=== PATIENT | female | born 1975 | race Caucasian/White ===

== ENCOUNTER 2017-08-12 01:59 | Inpatient (IN) | payer MEDICARE, MEDICAID, SELFPAY ==
[2017-08-12] VITALS (12 sets, daily range): BP systolic 125–188; BP diastolic 58–85; PULSE 73–86; RESP 16–20; TEMP 36.5–37.5; O2SAT 88–98; BMI 33.3; BMI 32.7
--- NOTE | 2017-08-12 02:22 | CT_ITS ---
STUDY: CT ABDOMEN AND PELVIS WITHOUT CONTRAST REASON FOR EXAM: Female, 41 years old. Back pain starting in the periumbilical region. Patient has end-stage renal disease and is on dialysis. RADIATION DOSAGE (If Supplied By Facility): CTDIvol = ( 13.23 ) mGy, DLP = ( 955.46 ) mGycm TECHNIQUE: Transaxial images were obtained from the dome of the diaphragm to the symphysis pubis without oral contrast, and without intravenous contrast. Sagittal and coronal images were reconstructed. Individualized dose optimization techniques were used for this CT. COMPARISON: CT the abdomen and pelvis dated August 06, 2016. FINDINGS: The visualized lung bases are unremarkable. The visualized portions of the heart are within normal limits. There is hepatomegaly with diffuse hepatic enlargement. Liver measures 19.8 cm in greatest cephalocaudal dimension. Normal gallbladder and extrahepatic biliary system. There is mild splenomegaly. There are scattered calcified granulomas. Normal pancreas. There is a left adrenal nodule measuring approximately 3.3 2.3 x 2.0 cm. The right adrenal gland has a normal appearance. There is mild cortical atrophy of the right kidney, consistent with chronic medical renal disease. Left kidney has normal size. There are vascular calcifications in both renal latrell. There is no evidence for hydronephrosis, hydroureter or radiopaque ureteral calculus. Normal visualized stomach. There is mild dilatation of the small bowel with maximum transverse dimension of approximately 3.7 cm. There may be some thickening of the walton of the small bowel as well. There appears to be a transition within the mid small bowel. The colon is not dilated. Stool is visible throughout the colon with scattered colonic diverticula There are surgical clips in the region of the appendix consistent with a prior appendectomy. There is patchy atherosclerotic calcification of the abdominal aorta, without a demonstrated aneurysm. There extensive vascular calcifications of the branches of the superior mesenteric artery and celiac axis. Normal inferior vena cava. Normal retroperitoneum. Normal urinary bladder. There is absence of the uterus consistent with a prior hysterectomy. There is an umbilical hernia containing fat. There are diffuse degenerative changes of the visualized lumbar spine. There is mild curvature of the thoracic and lumbar spine with convexity towards the right. CT/Abdomen/Pelvis without Cont IMPRESSION: 1. CT findings suggest possible acute inflammation of the proximal small bowel and early or partial small bowel obstruction. Ileus is thought less likely. 2. Hepatomegaly and splenomegaly. Electronically Signed: Val Cabrera MD at 4:16 EST , Service support ,
[2017-08-12 02:58] LABS: Absolute Lymphocyte Count 0.87 X10^3/ul (0.83-4.51); Absolute Neutrophil Count 5.4 X10^3/uL (2.0-7.7); Basophil# 0.01 X10^3/uL; Basophil% 0.1 % (0-1); Hematocrit 26.7 % (37-47); Hemoglobin 8.6 g/dl (12.0-15.0); Lymphocyte # 0.87 X10^3/ul (4.0); Lymphocyte % 12.9 % (19-41); Mean Corp Hgb Conc 32.2 g/gl (32-36); Mean Corpuscular Hgb 31.9 pg (27.0-32.0); Mean Corpuscular Volume 98.9 fL (81-99); Mean Platelet Vol. 8.3 fl (6.2-12.0); Monocyte# 0.31 X10^3/uL; Monocyte% 4.6 % (0-10); Neutrophil # 5.36 X10^3/uL (2.7-7.7); Neutrophil % 79.1 % (47-70); Platelet Count 153 K/mm3 (150-450); RBC Distribution Width CV 15.1 % (11.6-14.6); White Blood Count 6.8 K/mm3 (4.4-11.0)
[2017-08-12 03:09] LABS: POSITIVE COUNT NO; POSITIVE DIFFERENTIAL NO; POSITIVE MORPHOLOGY NO
[2017-08-12 03:15] LABS: BUN 24 mg/dL (7-18); Creatinine, Serum 4.36 mg/dL (0.55-1.02); EST Glomerular Filtration Rate 12 mL/min (>60); Estimated Creatinine Clearance 15.57 ml/min; Glucose 178 mg/dL (70-110)
[2017-08-12 03:16] LABS: ALB/GLOB Ratio 0.6 RATIO (0.9-2.4); AST(SGOT) 12 U/L (15-37); Alanine Aminotransfer ALT/SGPT 22 U/L (12-78); Albumin, Serum 2.7 g/dL (3.4-5.0); Alkaline Phosphatase 93 U/L (45-117); Anion Gap 10 (5-15); BUN/Creat Ratio 5.5 RATIO (10-20); Calcium,Total 7.7 mg/dL (8.5-10.1); Chloride 97 mmol/L (98-107); Est Glom Filt Rate - Afr Amer 14 mL/min (>60); Globulin 4.6 g/dL (2.2-4.2); Lipase 229 U/L (73-393); Potassium 3.3 mmol/L (3.5-5.1); Protein, Total 7.3 g/dL (6.4-8.2); Sodium Level 140 mmol/L (136-145)
[2017-08-12] MEDS: Ondansetron 4 MG/2 ML Vial IV ×3 (03:50→20:38)
--- NOTE | 2017-08-12 03:55 | ED.RN ---
STILL NEEDS VERIFIED NO LW OR POA
--- NOTE | 2017-08-12 04:43 | HP.PCM_ITS ---
Problem List (1) GABRIEL (obstructive sleep apnea) Status: Chronic (2) ESRD on dialysis Status: Chronic (3) Depression Status: Chronic Qualifiers: Depression Type: unspecified Qualified Code(s): F32.9 - Major depressive disorder, single episode, unspecified (4) Anxiety Status: Chronic (5) HTN (hypertension) Status: Chronic Qualifiers: Hypertension type: essential hypertension Qualified Code(s): I10 - Essential (primary) hypertension (6) Nonischemic cardiomyopathy Status: Chronic Comment: With ejection fraction 45 - 50%; with angiographically normal coronary arteries 05/2013; follows up with Dr. Magdaleno (7) S/P repair of PDA (patent ductus arteriosus) Status: Chronic Comment: At young age (8) Diabetes mellitus type 1 Status: Chronic Qualifiers: Diabetes mellitus complication status: with unspecified complications Qualified Code(s): E10.8 - Type 1 diabetes mellitus with unspecified complications (9) Hyperlipidemia Status: Chronic Qualifiers: (10) Obesity Status: Chronic Qualifiers: Obesity type: due to excess calories Obesity classification: adult class 1 (BMI 30 - 34.9) (11) Systolic congestive heart failure Status: Chronic Qualifiers: Congestive heart failure chronicity: chronic Qualified Code(s): I50.22 - Chronic systolic (congestive) heart failure Comment: EF 40% (12) Left ventricular diastolic dysfunction, NYHA class 2 Status: Chronic (13) Tobacco abuse Status: Chronic (14) Iron deficiency anemia due to chronic blood loss Status: Chronic Comment: Dysmenorrhea history, s/p hysterectomy. (15) Obesity (BMI 30.0-34.9) Status: Chronic (16) Gastroparesis Status: Chronic (17) ? Early small bowel obstruction Status: Acute (18) Possible Infectious Colitis Status: Acute History of Present Illness Date of Admission: 08/12/17 Chief Complaint: Abdominal pain The patient is a 41 y/o F w/ PMHx: ESRD on HD, Diabetes mellitus type II w/ Neuropathy and Gastroparesis, HTN, HLD, Tobacco use, Obesity, LV Diastolic Dysfx , Systolic CHF Hx, CAD s/p 2013 catheterization w/ mild LAD disease w/ medical therapy only who presents to the [facility] ED on 08/12/17 w/ sudden onset at ~ 1:30 am severe mid-abdominal pain radiating toward her back with associated nausea without emesis and diarrheal episode x 1 with subjective elevated temperature and chills. In the ED work-up included T 99.5, HR 83, BP 188/76, RR 20, 98% on RA, CBC w/ WBC 6.8, Hgb 8.6, Plts 153 without L shift, CMP w/ K 3.3, Chl 97, CO2 33, BUN/Cr 24/4.36, glucose 178, lipase 229, CT A/P with possible acute inflammation of the proximal bowel and early or partial SBO, hepatomegaly and splenomegaly. In the ED patient administered NS, zofran and morphine. Past Medical History Past Medical History (Chronic Problems): Chronic Problems GABRIEL (obstructive sleep apnea) (Chronic) ESRD on dialysis (Chronic) Depression (Chronic) Anxiety (Chronic) HTN (hypertension) (Chronic) Nonischemic cardiomyopathy (Chronic) With ejection fraction 45 - 50%; with angiographically normal coronary arteries 05/2013; follows up with Dr. Magdaleno S/P repair of PDA (patent ductus arteriosus) (Chronic) At young age Diabetes mellitus type 1 (Chronic) Hyperlipidemia (Chronic) Obesity (Chronic) Systolic congestive heart failure (Chronic) EF 40% Left ventricular diastolic dysfunction, NYHA class 2 (Chronic) Tobacco abuse (Chronic) Iron deficiency anemia due to chronic blood loss (Chronic) Dysmenorrhea history, s/p hysterectomy. Obesity (BMI 30.0-34.9) (Chronic) Gastroparesis (Chronic) Allergies latex Allergy (Verified 08/12/17 02:03) Rash levofloxacin [From Levaquin] Adverse Reaction (Verified 08/12/17 02:03) PT CAN'T REMEMBER PT CAN'T REMEMBER metoclopramide HCl [From Reglan] Adverse Reaction (Verified 08/12/17 02:03) Nausea NSAIDS (Non-Steroidal Anti-Inflamma Adverse Reaction (Verified 08/12/17 02:03) kidney function oxycodone HCl [From Percocet] Adverse Reaction (Verified 08/12/17 02:03) HALLUCINATIONS Home Medications: Ambulatory Orders Medication Instructions Recorded Diltiazem HCl [Tiazac] 240 mg PO DAILY 07/10/15 Aspirin [Aspirin, Baby] 81 mg PO DAILY@0800 01/26/16 Calcium Acetate [Phoslo Gel Cap] 667 mg PO TIDCM 01/26/16 Ergocalciferol [Vitamin D] 50,000 unit PO FR 01/26/16 Insulin Aspart [Novolog Flexpen] 8 units SC TIDCM 01/26/16 Insulin Glargine,Hum.rec.anlog 5 unit SQ QHS 01/09/17 [Lantus] ProMETHAzine [Phenergan] 25 mg PO Q6H PRN PRN #10 tablet 03/06/17 Lidocaine/Prilocaine 1 unit TOPICAL PRN PRN 03/29/17 [Lidocaine-Prilocaine Cream] Lisinopril 20 mg PO DAILY 03/29/17 Omeprazole Magnesium [Prilosec Otc] 20 mg PO DAILY 03/29/17 Sodium Bicarbonate 650 mg PO MOWEFR 03/29/17 Acetaminophen [Tylenol Tablet] 650 mg PO Q6H PRN PRN tablet 03/31/17 Carvedilol [Coreg (Beta Chang)] 25 mg PO BID 06/17/17 Ondansetron [Zofran Odt] 4 mg PO Q8H PRN PRN #10 tablet 08/06/17 ALPRAZolam [Xanax] 0.5 mg PO PRN PRN 08/12/17 Surgical History: appendectomy, - - c-sections, L breast I+D for abscess, fistula placement LUE, L ankle surgery, appendectomy, DOMINGA w/ BSOO, PDA repair. Psychiatric History: Anxiety, Depression [employer] History: - - Prior dysmenorrhea, s/p hysterectomy. Lives: Spouse/ Significant Other Smoking Status: Current every day smoker Tobacco Use: Cigarettes Alcohol: None Drugs: None - *Family History Maternal History Items: Cancer, COPD, Diabetes, Hypertension, Renal Disease, Stroke Paternal History Items: Diabetes Sibling History Items: Cancer, Diabetes Review of Systems Constitutional: Reports: Chills, Fever, Weakness, Fatigue. Denies: Weight Change HEENT: Denies: Head Aches, Sinus Congestion, Sinus Drainage Cardiovascular: Denies: Chest Pain, Palpitations Respiratory: Denies: Cough, Shortness of breath at rest, Sputum production Gastrointestinal: Reports: Abdominal Pain, Diarrhea, Nausea. Denies: Vomiting Genitourinary: Denies: Dysuria Musculoskeletal: Denies: Joint Pain, Joint Tenderness Skin: Denies: Rash, Wounds Neurological: Denies: Numbness, Tingling, Focal weakness Psychiatric: Reports: Anxiety, Depression. Denies: Homicidal Ideations, Suicidal Ideations Hematologic/ Lymphatic: Reports: Anemia. Denies: Easy Bruising, Easy Bleeding VTE Information - Inpt Only VTE Present on Admission: No VTE Mechan Device Prophylaxis: SCD's VTE Pharm Prophylaxis ordered?: Yes Patient Problems: Active and Suspected Problems ? Early small bowel obstruction (Acute) Possible Infectious Colitis (Acute) Abdominal pain (Acute) Inflammation of small intestine (Acute) Subjective: Laying on her side in the ED bed, uncomfortable appearing, grimacing with movement to lay on back. Objective: Physical Examination: General: awake, alert, oriented x 3 and cooperative, laying in the ED bed in no apparent distress. Skin: normal color, turgor, no icterus, cyanosis. HEENT: AT/NC, EOMI, PERRLA, mildly dry MM, no carotid bruits or JVD noted. Lungs: CTA bilaterally, moderate effort, moderate decrease BL bases, no rales, ronchi or wheezing. Heart: Regular rate and rhythm; no gallop, rub audible. Abdomen: soft, obese, mildly distended, hyperactive BS, generalized mild TTP, more periumbilical discomfort, difficult to assess HSM given habitus (noted MH, SM on imaging). Extremities: no cyanosis, clubbing, or edema. Neurological: patient awake, alert, oriented x 3; cognitive function intact; pupils equally reactive to light and accomodation; cranial nerves II-XII grossly normal, moving all 4 extremities, no focal deficits, strength severely globally decreased. Psychiatric: affect appears fatigued, no acute evidence of depressive or anxiety feelings. - Physical Exam Vital Signs Temp Pulse Resp BP Pulse Ox 99.5 F H 83 20 H 188/76 H 98 08/12/17 02:00 08/12/17 02:00 08/12/17 02:00 08/12/17 02:00 08/12/17 02:00 Oxygen Delivery Method Room Air Weight: 206 lb 5.643 oz Body Mass Index (BMI) 33.3 Finger Stick Blood Glucose 351 Laboratory Tests Past 24 Hrs 08/12/17 08/12/17 02:35 02:35 WBC 6.8 RBC 2.70 L Hgb 8.6 L Hct 26.7 L MCV 98.9 MCH 31.9 MCHC 32.2 RDW 15.1 H RDW Differential 53.0 H Plt Count 153 MPV 8.3 Immature Gran % (Auto) 0.300 Neut % (Auto) 79.1 H Lymph % (Auto) 12.9 L Rapides % (Auto) 4.6 Eos % (Auto) 3.0 Baso % (Auto) 0.1 Absolute Neuts (auto) 5.4 Absolute Lymphs (auto) 0.87 Total Counted Not Reportable Sodium 140 Potassium 3.3 L Chloride 97 L Carbon Dioxide 33.0 H Anion Gap 10 BUN 24 H Creatinine 4.36 H Estim Creat Clear Calc 15.57 Est GFR (MDRD) Af Amer 14 L Est GFR (MDRD) Non-Af 12 L BUN/Creatinine Ratio 5.5 L Glucose 178 H Calcium 7.7 L Total Bilirubin 0.30 AST 12 L ALT 22 Alkaline Phosphatase 93 Total Protein 7.3 Albumin 2.7 L Globulin 4.6 H Albumin/Globulin Ratio 0.6 L Lipase 229 Assessment/Plan Active and Suspected Problems ? Early small bowel obstruction (Acute) Possible Infectious Colitis (Acute) Abdominal pain (Acute) Inflammation of small intestine (Acute) The patient is a 41 y/o F w/ PMHx: ESRD on HD, Diabetes mellitus type II w/ Neuropathy and Gastroparesis, HTN, HLD, Tobacco use, Obesity, LV Diastolic Dysfx , Systolic CHF Hx, CAD s/p 2013 catheterization w/ mild LAD disease w/ medical therapy only who presents to the [facility] ED on 08/12/17 w/ sudden onset at ~ 1:30 am severe mid-abdominal pain radiating toward her back with associated nausea without emesis and diarrheal episode x 1 with subjective elevated temperature and chills. (1) Abdominal pain, nausea without emesis, diarrhea x 1 w/ Proximal Bowel Inflammation, Possible Infectious Colitis w/ ? early SBO: In the ED work-up included CT A/P with possible acute inflammation of the proximal bowel and early or partial SBO, hepatomegaly and splenomegaly, CBC w/o marked WBC elevation of shift, AF in the ED. Unclear specific etiology. Will admit to MS, maintain on IVFs, maintain on zosyn, defer NGT pending discussion with Surgery given atypical presentation, strict I&Os, IV pain/anti-emetics PRN, serial KUB as needed to montior bowel function, Famotidine IV, maintain NPO on bowel rest. General surgery, Dr. Zhang consulted, pending. (2) Hypertension: Holding oral regimen, PRN hydralazine, lopressor. (3) AOCD, Fe deficiency anemia: Admission Hgb 8.6, previously was on Fe supplementation. (4) ESRD on HD: Consult Nephrology, Dr. Juan somers, continue with routine HD regimen. (5) Chronic systolic CHF, CM, Diastolic DysFx, CAD: Noted history, EF 45-50% w/ 05/2013 normal cardiac catheterization per Dr. Magdaleno, holding oral regimen asa , BB, ACEI. Not on statin. HD as noted. IVFs cautiously to avoid overload. (6) Hyperlipidemia: Not on statin. (7) Diabetes mellitus type II w/ Neuropathy, Gastroparesis: Continue home long- acting insulin regimen, hold short-acting scheduled regimen, NPO status given acute presentation, accu checks w/ ISS. (8) Depression and Anxiety: Holding home xaxax regimen. Previously was on prozac in the past. PRN IV ativan given NPO status. (9) Tobacco Abuse: Encouraged cessation, inpatient consultation per RT, NR if desired. (10) Obesity: Weight loss and lifestyle changes encouraged. (11) DVT prophylaxis: SCDs, heparin. Code Visit Inpatient E&M: 96270 Init Hosp L3
--- NOTE | 2017-08-12 04:44 | ED.VISSUMM ---
- ER Visit Summary Date of Service: 08/12/17 Chief Complaint: Abdominal pain History of Present Illness: The patient is a 41 F sudden abdominal pain awakening her at 120 in the morning. Pain mid abdomen radiates to her back. No nausea or vomiting. States had one loose stools after the pain. No blood in the stools. No previous similar symptoms. No fevers. States had chills. History of end-stage renal disease on dialysis Fridays, had full dialysis yesterday. History of appendectomy, , umbilical hernia repair. Appendectomy was done 2 years ago in [place]. Pain is sharp in nature 8 out of 10. Physical Examination: General: Alert and oriented ?3, no acute distress HEENT: Normocephalic, atraumatic. Moist mucosa membranes Neck: supple, nontender. Cardiovascular: Regular rate and rhythm, no murmurs Respiratory: Normal breath sounds, symmetric, no distress Abdomen: Soft, mid abdominal tenderness without guarding or rebound., nondistended. Normal bowel sounds Extremities: Nontender, no edema, pulses intact ?4. Left upper extremity fistula with a positive thrill Neuro: no focal neurological deficits. Test Results: Labs white count 6.8, hemoglobin 8.6. Potassium 3.3. Creatinine 4.36. Lipase 229. Liver enzymes normal. CT scan abdomen pelvis inflammation proximal small bowel, possible early partial small bowel obstruction Emergency Department Course and Treatment: Patient presents with discomfort, nonsurgical abdomen. Abdominal labs noted chronic changes of hemoglobin. Creatinine 4.36. Potassium 3.3. She did finish dialysis yesterday. She given morphine fluids for symptom control. CT scan per radiology notes inflammation proximal small bowel and possible early partial small bowel obstruction. Spoke with Dr. Charles, will place on Zosyn IV for the inflammation for coverage. Request I talked to surgery for inpatient management. I spoke with Dr. Dill, who will follow. He did review the images was not impressed with obstruction at this time. He states symptoms persist, can obtain oral contrast scan for evaluation if there would be any signs of small bowel obstruction. Treatment Plan: [] Disposition: Admission Impression: 1. Abdominal pain 2. Small small small bowel inflammation 3. Possible early small bowel obstruction 4. Anemia 5. End-stage renal disease on dialysis This note was generated with [employer] software. It may contain incorrect words, spelling, and punctuation that were not noted in review of the chart prior to signing ED Disposition - Plan for ED Patient: Disposition: Acute Care Hospital [facility] Chief Complaint: Back Diagnosis: Abdominal pain, Inflammation of small intestine Referrals: Christopher Foy MD [Primary Care Provider] -
--- NOTE | 2017-08-12 04:55 | ED.DCSUM_ITS ---
- ER Visit Summary Date of Service: 08/12/17 Chief Complaint: Abdominal pain History of Present Illness: The patient is a 41 F sudden abdominal pain awakening her at 120 in the morning. Pain mid abdomen radiates to her back. No nausea or vomiting. States had one loose stools after the pain. No blood in the stools. No previous similar symptoms. No fevers. States had chills. History of end-stage renal disease on dialysis Fridays, had full dialysis yesterday. History of appendectomy, , umbilical hernia repair. Appendectomy was done 2 years ago in [place]. Pain is sharp in nature 8 out of 10. Physical Examination: General: Alert and oriented ?3, no acute distress HEENT: Normocephalic, atraumatic. Moist mucosa membranes Neck: supple, nontender. Cardiovascular: Regular rate and rhythm, no murmurs Respiratory: Normal breath sounds, symmetric, no distress Abdomen: Soft, mid abdominal tenderness without guarding or rebound., nondistended. Normal bowel sounds Extremities: Nontender, no edema, pulses intact ?4. Left upper extremity fistula with a positive thrill Neuro: no focal neurological deficits. Test Results: Labs white count 6.8, hemoglobin 8.6. Potassium 3.3. Creatinine 4.36. Lipase 229. Liver enzymes normal. CT scan abdomen pelvis inflammation proximal small bowel, possible early partial small bowel obstruction Emergency Department Course and Treatment: Patient presents with discomfort, nonsurgical abdomen. Abdominal labs noted chronic changes of hemoglobin. Creatinine 4.36. Potassium 3.3. She did finish dialysis yesterday. She given morphine fluids for symptom control. CT scan per radiology notes inflammation proximal small bowel and possible early partial small bowel obstruction. Spoke with Dr. Charles, will place on Zosyn IV for the inflammation for coverage. Request I talked to surgery for inpatient management. I spoke with Dr. Dill, who will follow. He did review the images was not impressed with obstruction at this time. He states symptoms persist, can obtain oral contrast scan for evaluation if there would be any signs of small bowel obstruction. Treatment Plan: [] Disposition: Admission Impression: 1. Abdominal pain 2. Small small small bowel inflammation 3. Possible early small bowel obstruction 4. Anemia 5. End-stage renal disease on dialysis This note was generated with [employer] software. It may contain incorrect words, spelling, and punctuation that were not noted in review of the chart prior to signing ED Disposition - Plan for ED Patient: Disposition: Acute Care Hospital [facility] Chief Complaint: Back Diagnosis: Abdominal pain, Inflammation of small intestine Referrals: Christopher Foy MD [Primary Care Provider] -
[2017-08-12] MEDS: 0.9% Normal Saline 1,000 ML 125 ML IV ×2 (06:54→13:45)
[2017-08-12 07:06] LABS: Bedside Glucose 155 mg/dL (70-110)
--- NOTE | 2017-08-12 10:41 | PCM.PROGNOTE ---
<Fiorella Gan - Last Filed: 08/12/17 11:09> Patient Problems: Active and Suspected Problems ? Early small bowel obstruction (Acute) Possible Infectious Colitis (Acute) Abdominal pain (Acute) Inflammation of small intestine (Acute) Subjective: Patient seen and examined. Continues to complain of abdominal pain in her umbilicus area which she states radiates to her lower back. Complains of nausea, vomiting. Complains of chills, no subjective fever. She states she had a mucousy bowel movement overnight. Denies other complaint. - Physical Exam General: Alert, Oriented x3, Cooperative, No apparent distress HEENT: Atraumatic, PERRLA, EOMI, Normocephalic Neck: Supple, No JVD, Negative Carotid Bruits Lungs: Clear to auscultation, Diminished Cardiovascular: Regular rate, Regular Rhythm, Normal S1, Normal S2, No murmurs Abdomen: Bowel Sounds Present, Soft, Non-Distended, Obese, Tender Extremities: No clubbing, No cyanosis, No edema, Capillary Refill Less than 3 Seconds Skin: No rashes, No breakdown, Ulcer/ Wound - cleft nonhealing wound, macerated, tunneling. Musculoskeletal: No Tenderness to Palpation of Joints or Extremities Neurological: Cranial nerves II-XII grossly intact, Neuro grossly intact Psych/Mental Status: Normal Affect, Appropriate Vital Signs Temp Pulse Resp BP Pulse Ox 97.7 F L 76 18 134/62 H 97 08/12/17 06:23 08/12/17 06:23 08/12/17 08:00 08/12/17 06:23 08/12/17 08:00 Oxygen Flow Rate 2 Oxygen Delivery Method Nasal Cannula Weight: 92 kg Body Mass Index (BMI) 32.7 Intake and Output for Last 24 Hours 08/10/17 08/11/17 08/12/17 23:59 23:59 23:59 Intake Total 140 / 140 Balance 140 / 140 POC Glucose 08/12/17 06:36 POC Glucose 155 H Assessment/Plan Active and Suspected Problems ? Early small bowel obstruction (Acute) Possible Infectious Colitis (Acute) Abdominal pain (Acute) Inflammation of small intestine (Acute) Patient is a 41-year-old female admitted 08/12/2017 due to abdominal pain. She has a past medical history of end-stage renal disease, type 2 diabetes mellitus, hypertension, hyperlipidemia, tobacco abuse, obesity, chronic systolic CHF, CAD. 1. Suspected infectious colitis/possible early SBO-patient continues to have abdominal pain in the umbilical area, nausea, chills. CT of abdomen and pelvis shows possible acute inflammation of the proximal small bowel and early or partial small bowel obstruction. Hepatomegaly and splenomegaly. Surgery consult pending. Keep n.p.o. Continue IV famotidine. Gentle IV fluids. IV Zofran as needed for nausea. Continue IV Zosyn. Morphine as needed for pain. White count within normal limits. Patient had mild fever on admission, 99.5. 2. Anemia of chronic disease/iron deficiency anemia-stable, monitor CBC. Previously on iron supplementation which has since been discontinued. 3. End-stage renal failure-on hemodialysis. Nephrology consulted. Continue current hemodialysis regimen. 4. Chronic diastolic CHF-no acute exacerbation. Previous echocardiogram 07/14/2015 showed an estimated ejection fraction of 65%, moderate left ventricular hypertrophy. This was improved from echo in 2012 in which her LV function was 40%. 5. CAD-continue aspirin, beta-lewis. Previous cath in 2012 showed mild LAD disease. 6. Hyperlipidemia-not on statin. Recent lipid panel in June 2017 WNL. 7. Type 2 diabetes mellitus-with associated neuropathy and gastroparesis. Continue home long-acting insulin regimen. Accu-Cheks before meals at bedtime with sliding scale insulin. 8. Depression/anxiety-as needed IV Ativan. Can resume home Xanax regimen when able to tolerate oral intake. Patient was on Prozac in the past. Recommend tapering benzodiazepine and placing back on SSRI in the future. 9. Tobacco abuse-encourage smoking cessation. 10. Obesity-encouraged lifestyle and dietary modifications. 11. Nonhealing cleft pressure ulcer-present on admission. Consult wound RN. Continue wet-to-dry dressing changes. Tunneling present, surrounding tissue appears macerated. DVT prophylaxis-heparin subcu. This patient was seen by SATNAM Mcgraw under the supervision of Dr. Kulkarni. <Alireza Kulkarni - Last Filed: 08/12/17 11:57> Subjective: The patient was admitted with abdominal pain mainly over periumbilical area with radiation to back. She also has nausea vomiting. Seen by surgeon, Dr. Dill and ordered a Gastrografin x-ray abdomen. - Physical Exam Cardiovascular: Regular rate, Regular Rhythm, Normal S2, No murmurs Abdomen: Bowel Sounds Present, Soft, Tender Extremities: No edema Vital Signs Temp Pulse Resp BP Pulse Ox 97.7 F L 76 18 134/62 H 97 08/12/17 06:23 08/12/17 11:01 08/12/17 08:00 08/12/17 06:23 08/12/17 08:00 Oxygen Flow Rate 2 Oxygen Delivery Method Nasal Cannula Weight: 202 lb 13.204 oz Body Mass Index (BMI) 32.7 Intake and Output for Last 24 Hours 08/10/17 08/11/17 08/12/17 23:59 23:59 23:59 Intake Total 140 / 140 Balance 140 / 140 POC Glucose 08/12/17 08/12/17 11:12 06:36 POC Glucose 109 155 H Assessment/Plan This patient was seen in conjunction with Fiorella HINOJOSA. I have independently interviewed and examined the patient and reviewed pertinent history, examination findings, laboratory and plan of management. I have reviewed the note and agree with the documented findings with the few additional points. In brief, patient is admitted for symptoms of early/partial small bowel obstruction possibly due to inflammation. Gastrografin small bowel x-rays ordered a surgeon.. Will follow it. Currently patient is n.p.o. Patient is also on hemodialysis. She had history of necrotizing fasciitis after section and had acute kidney injury and was started on hemodialysis and had transiently kidney function recovered and off dialysis but later on developed end-stage renal disease permanent dialysis I have discussed my assessment with Fiorella HINOJOSA and orders have been reviewed.
--- NOTE | 2017-08-12 11:06 | PN_ITS ---
<Fiorella Gan - Last Filed: 08/12/17 11:09> Patient Problems: Active and Suspected Problems ? Early small bowel obstruction (Acute) Possible Infectious Colitis (Acute) Abdominal pain (Acute) Inflammation of small intestine (Acute) Subjective: Patient seen and examined. Continues to complain of abdominal pain in her umbilicus area which she states radiates to her lower back. Complains of nausea , vomiting. Complains of chills, no subjective fever. She states she had a mucousy bowel movement overnight. Denies other complaint. - Physical Exam General: Alert, Oriented x3, Cooperative, No apparent distress HEENT: Atraumatic, PERRLA, EOMI, Normocephalic Neck: Supple, No JVD, Negative Carotid Bruits Lungs: Clear to auscultation, Diminished Cardiovascular: Regular rate, Regular Rhythm, Normal S1, Normal S2, No murmurs Abdomen: Bowel Sounds Present, Soft, Non-Distended, Obese, Tender Extremities: No clubbing, No cyanosis, No edema, Capillary Refill Less than 3 Seconds Skin: No rashes, No breakdown, Ulcer/ Wound - Marcella cleft nonhealing wound, macerated, tunneling. Musculoskeletal: No Tenderness to Palpation of Joints or Extremities Neurological: Cranial nerves II-XII grossly intact, Neuro grossly intact Psych/Mental Status: Normal Affect, Appropriate Vital Signs Temp Pulse Resp BP Pulse Ox 97.7 F L 76 18 134/62 H 97 08/12/17 06:23 08/12/17 06:23 08/12/17 08:00 08/12/17 06:23 08/12/17 08:00 Oxygen Flow Rate 2 Oxygen Delivery Method Nasal Cannula Weight: 92 kg Body Mass Index (BMI) 32.7 Intake and Output for Last 24 Hours 08/10/17 08/11/17 08/12/17 23:59 23:59 23:59 Intake Total 140 / 140 Balance 140 / 140 POC Glucose 08/12/17 06:36 POC Glucose 155 H Assessment/Plan Active and Suspected Problems ? Early small bowel obstruction (Acute) Possible Infectious Colitis (Acute) Abdominal pain (Acute) Inflammation of small intestine (Acute) Patient is a 41-year-old female admitted 08/12/2017 due to abdominal pain. She has a past medical history of end-stage renal disease, type 2 diabetes mellitus , hypertension, hyperlipidemia, tobacco abuse, obesity, chronic systolic CHF, CAD. 1. Suspected infectious colitis/possible early SBO-patient continues to have abdominal pain in the umbilical area, nausea, chills. CT of abdomen and pelvis shows possible acute inflammation of the proximal small bowel and early or partial small bowel obstruction. Hepatomegaly and splenomegaly. Surgery consult pending. Keep n.p.o. Continue IV famotidine. Gentle IV fluids. IV Zofran as needed for nausea. Continue IV Zosyn. Morphine as needed for pain. White count within normal limits. Patient had mild fever on admission, 99.5. 2. Anemia of chronic disease/iron deficiency anemia-stable, monitor CBC. Previously on iron supplementation which has since been discontinued. 3. End-stage renal failure-on hemodialysis. Nephrology consulted. Continue current hemodialysis regimen. 4. Chronic diastolic CHF-no acute exacerbation. Previous echocardiogram 2014 showed an estimated ejection fraction of 65%, moderate left ventricular hypertrophy. This was improved from echo in 2012 in which her LV function was 40%. 5. CAD-continue aspirin, beta-lewis. Previous cath in 2012 showed mild LAD disease. 6. Hyperlipidemia-not on statin. Recent lipid panel in June 2017 WNL. 7. Type 2 diabetes mellitus-with associated neuropathy and gastroparesis. Continue home long-acting insulin regimen. Accu-Cheks before meals at bedtime with sliding scale insulin. 8. Depression/anxiety-as needed IV Ativan. Can resume home Xanax regimen when able to tolerate oral intake. Patient was on Prozac in the past. Recommend tapering benzodiazepine and placing back on SSRI in the future. 9. Tobacco abuse-encourage smoking cessation. 10. Obesity-encouraged lifestyle and dietary modifications. 11. Nonhealing cleft pressure ulcer-present on admission. Consult wound RN. Continue wet-to-dry dressing changes. Tunneling present, surrounding tissue appears macerated. DVT prophylaxis-heparin subcu. This patient was seen by SATNAM Mcgraw under the supervision of Dr. Kulkarni. <Alireza Kulkarni - Last Filed: 08/12/17 11:57> Subjective: The patient was admitted with abdominal pain mainly over periumbilical area with radiation to back. She also has nausea vomiting. Seen by surgeon, Dr. Dill and ordered a Gastrografin x-ray abdomen. - Physical Exam Cardiovascular: Regular rate, Regular Rhythm, Normal S2, No murmurs Abdomen: Bowel Sounds Present, Soft, Tender Extremities: No edema Vital Signs Temp Pulse Resp BP Pulse Ox 97.7 F L 76 18 134/62 H 97 08/12/17 06:23 08/12/17 11:01 08/12/17 08:00 08/12/17 06:23 08/12/17 08:00 Oxygen Flow Rate 2 Oxygen Delivery Method Nasal Cannula Weight: 202 lb 13.204 oz Body Mass Index (BMI) 32.7 Intake and Output for Last 24 Hours 08/10/17 08/11/17 08/12/17 23:59 23:59 23:59 Intake Total 140 / 140 Balance 140 / 140 POC Glucose 08/12/17 08/12/17 11:12 06:36 POC Glucose 109 155 H Assessment/Plan This patient was seen in conjunction with Fiorella HINOJOSA. I have independently interviewed and examined the patient and reviewed pertinent history, examination findings, laboratory and plan of management. I have reviewed the note and agree with the documented findings with the few additional points. In brief, patient is admitted for symptoms of early/partial small bowel obstruction possibly due to inflammation. Gastrografin small bowel x-rays ordered a surgeon.. Will follow it. Currently patient is n.p.o. Patient is also on hemodialysis. She had history of necrotizing fasciitis after section and had acute kidney injury and was started on hemodialysis and had transiently kidney function recovered and off dialysis but later on developed end-stage renal disease permanent dialysis I have discussed my assessment with Fiorella HINOJOSA and orders have been reviewed.
[2017-08-12 11:21] LABS: Bedside Glucose 109 mg/dL (70-110)
--- NOTE | 2017-08-12 11:35 | NURSING ---
Chelsy CA NOT HERE FROM PHARMACY YET FOR PT ADMINISTRATION
--- NOTE | 2017-08-12 11:43 | CASEMGMT ---
CM Readmission Assessment: Previous admission on 07/20/17-07/21/17 for CHF exacerbation with ESRD. All care providers, pharmacy, and demographics verified. Patient denies any changes in information since last admission. PLAN: Patient states she would like to return home with her significant other, Mark, upon discharge from hospital. Patient states she uses home oxygen 2L PRN through [employer] and CPAP at night. CM contacted [facility] to notify them of patient's hospitalization. Patient states she's on a M// scheduled and did receive full treatment yesterday (Monday). Ofelia CURTISN, RN WINSOME
--- NOTE | 2017-08-12 12:45 | RAD_ITS ---
STUDY: X-RAY - ABDOMEN/PELVIS REASON FOR EXAM: Female, 41 years old. Evaluate for small bowel obstruction. TECHNIQUE: Frontal view 4 hours after drinking Gastrografin. COMPARISON: Abdominal radiograph dated June 30, 2015. FINDINGS: Normal visualized lung bases. There is Gastrografin within the colon extending all the way to the rectum. There is no demonstrated free abdominal air. The visualized liver, spleen and kidneys are grossly normal in size and morphology. Normal soft tissue structures. Normal visualized osseous structures. RAD/Abdomen Single View IMPRESSION: No evidence of small bowel obstruction. Electronically Signed: Antwon Chino MD at 18:08 EST , Service support ,
--- NOTE | 2017-08-12 15:38 | PCM.CONS.GEN ---
Problem List (1) Volume overload Status: Acute (2) ? Early small bowel obstruction Status: Acute (3) Possible Infectious Colitis Status: Acute (4) Abdominal pain Status: Acute (5) Inflammation of small intestine Status: Acute Reason for Consult Date of Consultation: 08/12/17 History of Present Illness: The patient is a 41 year old F with a complaint of abdominal pain, nausea and vomiting overnight last night. The patient was nauseated and vomited. During vomiting. She noted her umbilical hernia was increasingly distended and had discomfort in that area radiating through to her back. She also noted a liquid bowel movement that was loose prior to presentation in the emergency department. The patient presented emerged with these complaints. She denied fever or chills. She underwent evaluation included a noncontrast CT scan which was read as questionable edema of the proximal small bowel versus early partial small bowel obstruction. Since admission, the patient has not had any further episodes of vomiting. She denies nausea. She still notes some degree of abdominal discomfort. The umbilical hernia is not sensitive any further and seems to be somewhat smaller than when she was retching. She has a complex past medical history including coronary artery disease, cardiomyopathy with a decreased ejection fraction, COPD. The patient is on dialysis due to her renal failure. She received dialysis on Monday without difficulty. Past Medical History Past Medical History (Chronic Problems): Chronic Problems GABRIEL (obstructive sleep apnea) (Chronic) ESRD on dialysis (Chronic) Depression (Chronic) Anxiety (Chronic) HTN (hypertension) (Chronic) Nonischemic cardiomyopathy (Chronic) With ejection fraction 45 - 50%; with angiographically normal coronary arteries 05/2013; follows up with Dr. Magdaleno S/P repair of PDA (patent ductus arteriosus) (Chronic) At young age Diabetes mellitus type 1 (Chronic) Hyperlipidemia (Chronic) Obesity (Chronic) Systolic congestive heart failure (Chronic) EF 40% Left ventricular diastolic dysfunction, NYHA class 2 (Chronic) Tobacco abuse (Chronic) Iron deficiency anemia due to chronic blood loss (Chronic) Dysmenorrhea history, s/p hysterectomy. Obesity (BMI 30.0-34.9) (Chronic) Gastroparesis (Chronic) Allergies latex Allergy (Verified 08/12/17 02:03) Rash levofloxacin [From Levaquin] Adverse Reaction (Verified 08/12/17 02:03) PT CAN'T REMEMBER PT CAN'T REMEMBER metoclopramide HCl [From Reglan] Adverse Reaction (Verified 08/12/17 02:03) Nausea NSAIDS (Non-Steroidal Anti-Inflamma Adverse Reaction (Verified 08/12/17 02:03) kidney function oxycodone HCl [From Percocet] Adverse Reaction (Verified 08/12/17 02:03) HALLUCINATIONS Home Medications: Ambulatory Orders Medication Instructions Recorded Diltiazem HCl [Tiazac] 240 mg PO DAILY 07/10/15 Aspirin [Aspirin, Baby] 81 mg PO DAILY@0800 01/26/16 Calcium Acetate [Phoslo Gel Cap] 667 mg PO TIDCM 01/26/16 Ergocalciferol [Vitamin D] 50,000 unit PO FR 01/26/16 Insulin Aspart [Novolog Flexpen] 8 units SC TIDCM 01/26/16 Insulin Glargine,Hum.rec.anlog 5 unit SQ QHS 01/09/17 [Lantus] ProMETHAzine [Phenergan] 25 mg PO Q6H PRN PRN #10 tablet 03/06/17 Lidocaine/Prilocaine 1 unit TOPICAL PRN PRN 03/29/17 [Lidocaine-Prilocaine Cream] Lisinopril 20 mg PO DAILY 03/29/17 Omeprazole Magnesium [Prilosec Otc] 20 mg PO DAILY 03/29/17 Sodium Bicarbonate 650 mg PO MOWEFR 03/29/17 Acetaminophen [Tylenol Tablet] 650 mg PO Q6H PRN PRN tablet 03/31/17 Carvedilol [Coreg (Beta Chang)] 25 mg PO BID 06/17/17 Ondansetron [Zofran Odt] 4 mg PO Q8H PRN PRN #10 tablet 08/06/17 ALPRAZolam [Xanax] 0.5 mg PO PRN PRN 08/12/17 Surgical History: appendectomy, - - c-sections, L breast I+D for abscess, fistula placement LUE, L ankle surgery, appendectomy, DOMINGA w/ BSOO, PDA repair. Psychiatric History: Anxiety, Depression [employer] History: - - Prior dysmenorrhea, s/p hysterectomy. Lives: Spouse/ Significant Other Smoking Status: Current every day smoker Tobacco Use: Cigarettes Alcohol: None Drugs: None - *Family History Maternal History Items: Cancer, COPD, Diabetes, Hypertension, Renal Disease, Stroke Paternal History Items: Diabetes Sibling History Items: Cancer, Diabetes Review of Systems Constitutional: Denies: Chills, Fever, Weight Change HEENT: Denies: Head Aches, Sinus Congestion, Sinus Drainage Cardiovascular: Denies: Chest Pain, Palpitations Respiratory: Denies: Cough, Shortness of breath at rest, Sputum production Gastrointestinal: Reports: Abdominal Pain, Nausea, Vomiting Genitourinary: Denies: Dysuria Musculoskeletal: Denies: Joint Pain, Joint Tenderness Skin: Denies: Rash, Wounds Neurological: Denies: Numbness, Tingling, Focal weakness Psychiatric: Denies: Anxiety, Depression, Homicidal Ideations, Suicidal Ideations Hematologic/ Lymphatic: Denies: Easy Bruising, Easy Bleeding Patient Problems: Active and Suspected Problems ? Early small bowel obstruction (Acute) Possible Infectious Colitis (Acute) Abdominal pain (Acute) Inflammation of small intestine (Acute) - Physical Exam General: Alert, Oriented x3, Cooperative Neck: Supple, No JVD Lungs: Clear to auscultation, Normal air movement Cardiovascular: Regular rate, Regular Rhythm Abdomen: Bowel Sounds Present, Soft, Non Tender, Hernia - at the umbilicus nontender and partially reducible Vital Signs Temp Pulse Resp BP Pulse Ox 98.5 F 73 18 125/58 H 96 08/12/17 12:06 08/12/17 14:00 08/12/17 14:00 08/12/17 12:06 08/12/17 14:00 Oxygen Flow Rate 2 Oxygen Delivery Method Nasal Cannula Weight: 92 kg Body Mass Index (BMI) 32.7 Intake and Output for Last 24 Hours 08/10/17 08/11/17 08/12/17 23:59 23:59 23:59 Intake Total 796 / 796 Output Total 250 / 250 Balance 546 / 546 POC Glucose 08/12/17 08/12/17 11:12 06:36 POC Glucose 109 155 H Assessment/Plan Active and Suspected Problems ? Early small bowel obstruction (Acute) Possible Infectious Colitis (Acute) Abdominal pain (Acute) Inflammation of small intestine (Acute) nausea, vomiting, abdominal pain-increasing discomfort. Umbilical hernia - creasing discomfort and umbilical hernia site with vomiting, but now decreased. CT scan imaging was reviewed. There was omental fat in the hernia without signs of bowel incarceration. I do not feel she has a bowel obstruction due to her umbilical hernia. There also does not seem to be rather significant findings consistent with a bowel obstruction and given the fact this is a noncontrast CT scan feel that it is difficult to truly say the patient has proximal small bowel thickening. There are certainly no air-fluid levels or heart or signs of bowel obstruction. At this point in time, I would recommend the patient be given CT contrast orally-Gastrografin and obtain a KUB in the morning to see if there are any true signs of obstruction or slowing. If the patient has increased stool output, and additional episodes of diarrhea, but would recommend stool cultures. Currently, the patient noted a bowel movement. My impression is most likely a relatively mild viral gastroenteritis.
[2017-08-12 16:36] LABS: Bedside Glucose 109 mg/dL (70-110)
[2017-08-12] MEDS: Dext 5%-0.45% NS 1,000 ML 100 ML IV (19:06)
--- NOTE | 2017-08-12 20:17 | CON.PCM_ITS ---
Consultation - Renal 08/12/17 PCP/ Referring MD: Requesting physician: Dr. Charles Primary care physician: Dr. Christopher Foy Reason for Consultation:: End-stage renal disease - History of Present Illness History of Present Illness: The patient is a 41 year old F, and to our service with end-stage renal disease secondary to diabetic nephropathy, is admitted with sudden onset abdominal pain. The patient started experiencing mid abdominal pain with radiation to the back starting at 1:30 AM this morning. The patient also had associated nausea without vomiting. She had one loose bowel movement prior to presentation to the hospital. The patient has been evaluated by surgery service. There is no obvious bowel obstruction according to Dr. Zhang's evaluation. The patient is current chest pain, shortness of breath at rest, or increasing edema. Her nausea has resolved, and of the abdominal pain has improved. There has been no further bowel movement since admission. The patient dialyzes on a Monday, Monday and Monday schedule at [facility] [place]. Patient did receive her scheduled dialysis yesterday prior to admission. - Allergies Allergies: Allergies latex Allergy (Verified 08/12/17 02:03) Rash levofloxacin [From Levaquin] Adverse Reaction (Verified 08/12/17 02:03) PT CAN'T REMEMBER PT CAN'T REMEMBER metoclopramide HCl [From Reglan] Adverse Reaction (Verified 08/12/17 02:03) Nausea NSAIDS (Non-Steroidal Anti-Inflamma Adverse Reaction (Verified 08/12/17 02:03) kidney function oxycodone HCl [From Percocet] Adverse Reaction (Verified 08/12/17 02:03) HALLUCINATIONS - Current Medications Current Medications: Current Medications Dextrose (D50w Syringe) 0 gm IV X1 PRN; Protocol PRN Reason: Hypoglycemia Glucagon () 1 mg IM .X1 PRN PRN Reason: Hypoglycemia Heparin Sodium (Porcine) (Heparin Na) 5,000 unit SC BID [facility] Last Admin: 08/12/17 10:01 Dose: Not Given Hydralazine HCl (Apresoline) 10 mg IV Q4H PRN PRN PRN Reason: SBP > 160 Famotidine 20 mg/ Sodium (Chloride) 10 mls @ 300 mls/hr IV Q12 [facility] Last Admin: 08/12/17 10:01 Dose: 300 mls/hr Piperacillin Sod/Tazobactam Sod (Zosyn) 3.375 gm in 50 mls @ 12.5 mls/hr IV Q12 [facility] Dextrose/Sodium Chloride () 1,000 mls @ 100 mls/hr IV .Q10H [facility] Last Admin: 08/12/17 19:06 Dose: 100 mls/hr Insulin Aspart (Novolog Flexpen ([facility])) 0 units SC ACHS [place] PRN Reason: Protocol Last Admin: 08/12/17 17:01 Dose: Not Given Insulin Detemir (Levemir ([facility])) 5 units SC QHS [facility] Last Admin: 08/12/17 18:34 Dose: Not Given Lorazepam (Ativan) 0.5 mg IV Q6H PRN PRN PRN Reason: ANXIETY Magnesium Hydroxide (Milk Of Magnesia) 30 ml PO DAILY PRN PRN PRN Reason: Constipation Metoprolol Tartrate (Lopressor (Beta Chang)) 5 mg IV Q6H PRN PRN PRN Reason: SBP > 160 Morphine Sulfate (Morphine) 2 - 4 mg IV Q4H PRN PRN PRN Reason: MOD-SEVERE PAIN (4-10/10) Last Admin: 08/12/17 17:25 Dose: 2 mg Nicotine (Nicoderm Cq (Pbkc)) 7 mg TRANSDERM. DAILY [facility] Last Admin: 08/12/17 08:02 Dose: Not Given Ondansetron HCl (Zofran) 4 mg IV Q8H PRN PRN PRN Reason: NAUSEA Last Admin: 08/12/17 13:53 Dose: 4 mg Promethazine HCl (Phenergan (Ll)) 12.5 mg IV Q6H PRN PRN PRN Reason: NAUSEA/VOMITING Sodium Chloride () 5 - 30 ml IV UD PRN PRN Reason: SALINE FLUSH - Past Medical History Past Medical History (Chronic Problems): Chronic Problems GABRIEL (obstructive sleep apnea) (Chronic) ESRD on dialysis (Chronic) Depression (Chronic) Anxiety (Chronic) HTN (hypertension) (Chronic) Nonischemic cardiomyopathy (Chronic) With ejection fraction 45 - 50%; with angiographically normal coronary arteries 05/2013; follows up with Dr. Magdaleno S/P repair of PDA (patent ductus arteriosus) (Chronic) At young age Diabetes mellitus type 1 (Chronic) Hyperlipidemia (Chronic) Obesity (Chronic) Systolic congestive heart failure (Chronic) EF 40% Left ventricular diastolic dysfunction, NYHA class 2 (Chronic) Tobacco abuse (Chronic) Iron deficiency anemia due to chronic blood loss (Chronic) Dysmenorrhea history, s/p hysterectomy. Obesity (BMI 30.0-34.9) (Chronic) Gastroparesis (Chronic) - Past Surgical History Surgical History: appendectomy, - - c-sections, L breast I+D for abscess, fistula placement LUE, L ankle surgery, appendectomy, DOMINGA w/ BSOO, PDA repair. - Social History Smoking Status: Current every day smoker Alcohol: None Drugs: None - Family History Maternal History Items: Cancer, COPD, Diabetes, Hypertension, Renal Disease, Stroke Paternal History Items: Diabetes Sibling History Items: Cancer, Diabetes Review of Systems Constitutional: Reports: Anorexia, Malaise. Denies: Chills, Fever, Weight Change Eyes: Denies: Blurred vision, Pain, Redness HEENT: Denies: Head Aches, Sinus Congestion, Sinus Drainage Cardiovascular: Denies: Chest Pain, Chest Pressure, Edema, Palpitations Respiratory: Denies: Cough, Shortness of breath at rest, Sputum production Gastrointestinal: Reports: Abdominal Pain, Diarrhea, Nausea. Denies: Constipation, Vomiting Genitourinary: Denies: Dysuria, Hematuria, Incontinence Musculoskeletal: Denies: Joint Pain, Joint Tenderness Skin: Denies: Rash, Wounds Neurological: Denies: Numbness, Tingling, Focal weakness Psychiatric: Denies: Anxiety, Homicidal Ideations, Suicidal Ideations Hematologic/ Lymphatic: Denies: Easy Bruising, Easy Bleeding Patient Problems: Active and Suspected Problems ? Early small bowel obstruction (Acute) Possible Infectious Colitis (Acute) Abdominal pain (Acute) Inflammation of small intestine (Acute) - Physical Exam General: Alert, Oriented x3 HEENT: Atraumatic, Normocephalic Oral: Moist Mucosa Neck: Supple, No JVD Lungs: Clear to auscultation Cardiovascular: Normal S1, Normal S2, No murmurs Abdomen: Bowel Sounds Present, Soft, Tender - mild mid epigastric tenderness without guarding or rebound. Extremities: No clubbing, No cyanosis, No edema Skin: No rashes, No breakdown Musculoskeletal: No Tenderness to Palpation of Joints or Extremities Neurological: Cranial nerves II-XII grossly intact Vital Signs Temp Pulse Resp BP Pulse Ox 98.1 F 86 18 131/66 H 94 08/12/17 18:23 08/12/17 18:23 08/12/17 18:23 08/12/17 18:23 08/12/17 18:23 Oxygen Flow Rate 2 Oxygen Delivery Method Nasal Cannula Weight: 92 kg Body Mass Index (BMI) 32.7 Intake and Output for Last 24 Hours 08/10/17 08/11/17 08/12/17 23:59 23:59 23:59 Intake Total 1603 / 1603 Output Total 1550 / 1550 Balance 53 / 53 POC Glucose 08/12/17 08/12/17 08/12/17 16:26 11:12 06:36 POC Glucose 109 109 155 H Assessment/Plan Active and Suspected Problems ? Early small bowel obstruction (Acute) Possible Infectious Colitis (Acute) Abdominal pain (Acute) Inflammation of small intestine (Acute) 1. End-stage renal disease. The patient usually dialyzes on a Monday, Monday and Monday dialysis schedule. There is no need for dialysis today. Would recommend dosing medications for creatinine clearance of less than 10. Recommend decreasing Pepcid to once a day. Next scheduled dialysis will be on 08/14/2017. 2. Hypertension. Blood pressure medication is on hold since the patient is n.p.o. Her blood pressure has been acceptable. We will continue to monitor. 3. Anemia. Continue to monitor hemoglobin. Continue erythropoiesis stimulating agent with dialysis. 4. Chronic kidney disease-mineral bone disorder. Patient had been on calcium acetate with meals for phosphorus binding. We are holding calcium acetate for now because she is n.p.o. Restart calcium acetate once she is able to eat again. 5. Abdominal pain. Workup is underway as directed by surgery and hospital medicine services.
[2017-08-12] MEDS: LORazepam 2 MG/ML Syringe 0.5 MG IV (20:37)
[2017-08-12] MEDS: Piperacil/Tazobactam 3.375 GM/50 ML ML IV (21:19)
[2017-08-12 22:56] LABS: Bedside Glucose 127 mg/dL (70-110)
[2017-08-13] VITALS (12 sets, daily range): BP systolic 130–166; BP diastolic 69–94; PULSE 81–96; RESP 18; TEMP 36.4–36.9; O2SAT 94–95
[2017-08-13 02:21] LABS: Bedside Glucose 183 mg/dL (70-110)
[2017-08-13] MEDS: Dext 5%-0.45% NS 1,000 ML 100 ML IV ×2 (04:07→20:09)
[2017-08-13] MEDS: Metoprolol Tartrate 5 MG/5 ML Vial IV (04:14)
--- NOTE | 2017-08-13 05:55 | RAD_ITS ---
STUDY: X-RAY - ABDOMEN/PELVIS REASON FOR EXAM: Female, 41 years old. Evaluate for small bowel obstruction. TECHNIQUE: Two AP supine views of the abdomen and pelvis. COMPARISON: CT of the abdomen and pelvis dated August 12, 2017 and radiographs of the abdomen dated August 12, 2017. FINDINGS: Normal visualized lung bases. There is an unremarkable bowel gas pattern. Enteric contrast is visible within the colon. There is no obvious organomegaly, mass or dilated bowel. Normal soft tissue structures. There is mild curvature of the thoracic and lumbar spine convexity towards the right. There are multilevel degenerative changes of the thoracic and lumbar spine. RAD/Abdomen Single View IMPRESSION: Enteric contrast is still visible in the colon but there has been interim decrease in amount of enteric contrast since the previous study. Electronically Signed: Val Cabrera MD at 6:13 EST , Service support ,
[2017-08-13 06:42] LABS: Absolute Lymphocyte Count 0.74 X10^3/ul (0.83-4.51); Absolute Neutrophil Count 5.1 X10^3/uL (2.0-7.7); Basophil# 0.02 X10^3/uL; Basophil% 0.3 % (0-1); Eosinophil# 0.27 X10^3/uL; Eosinophils% 4.2 % (0-5); Hematocrit 28.3 % (37-47); Hemoglobin 8.8 g/dl (12.0-15.0); Lymphocyte # 0.74 X10^3/ul (4.0); Lymphocyte % 11.5 % (19-41); Mean Corp Hgb Conc 31.1 g/gl (32-36); Mean Corpuscular Hgb 31.5 pg (27.0-32.0); Mean Corpuscular Volume 101.4 fL (81-99); Mean Platelet Vol. 8.7 fl (6.2-12.0); Monocyte# 0.37 X10^3/uL; Monocyte% 5.7 % (0-10); Neutrophil # 5.05 X10^3/uL (2.7-7.7); Neutrophil % 78.1 % (47-70); Platelet Count 137 K/mm3 (150-450); RBC Distribution Width CV 15.2 % (11.6-14.6); RBC Distribution Width SD 55.1 fl (35.1-43.9); Red Blood Count 2.79 M/mm3 (4.2-5.4); White Blood Count 6.5 K/mm3 (4.4-11.0)
[2017-08-13 06:45] LABS: POSITIVE COUNT NO; POSITIVE DIFFERENTIAL NO; POSITIVE MORPHOLOGY NO
[2017-08-13 07:27] LABS: Anion Gap 10 (5-15); BUN 31 mg/dL (7-18); BUN/Creat Ratio 5.8 RATIO (10-20); Calcium,Total 8.1 mg/dL (8.5-10.1); Chloride 102 mmol/L (98-107); Creatinine, Serum 5.33 mg/dL (0.55-1.02); EST Glomerular Filtration Rate 9 mL/min (>60); Est Glom Filt Rate - Afr Amer 11 mL/min (>60); Estimated Creatinine Clearance 12.74 ml/min; Glucose 181 mg/dL (70-110); Potassium 4.1 mmol/L (3.5-5.1); Sodium Level 139 mmol/L (136-145)
--- NOTE | 2017-08-13 09:30 | PCM.PROGNOTE ---
<Fiorella Gan - Last Filed: 08/13/17 09:48> Patient Problems: Active and Suspected Problems ? Early small bowel obstruction (Acute) Possible Infectious Colitis (Acute) Abdominal pain (Acute) Inflammation of small intestine (Acute) Subjective: Patient seen and examined. States she had a small loose bowel movement this morning. Abdominal pain slightly improved. Continues to complain of chills. Nausea improved. No emesis. Denies other complaints. - Physical Exam General: Alert, Oriented x3, Cooperative, No apparent distress HEENT: Atraumatic, PERRLA, EOMI, Normocephalic Oral: Dry Mucosa Neck: Supple, No JVD, Negative Carotid Bruits Lungs: Clear to auscultation, Diminished Cardiovascular: Regular rate, Regular Rhythm, Normal S1, Normal S2, No murmurs Abdomen: Bowel Sounds Present, Soft, Obese, Tender - Mild TTP central abdomen, Hernia - Umbilical Extremities: No clubbing, No cyanosis, No edema, Capillary Refill Less than 3 Seconds Skin: No rashes, No breakdown, Ulcer/ Wound - cleft nonhealing wound, macerated, tunneling. Musculoskeletal: No Tenderness to Palpation of Joints or Extremities Neurological: Cranial nerves II-XII grossly intact, Neuro grossly intact Psych/Mental Status: Normal Affect, Appropriate Vital Signs Temp Pulse Resp BP Pulse Ox 98.4 F 85 18 130/72 H 95 08/13/17 07:51 08/13/17 08:07 08/13/17 08:23 08/13/17 07:51 08/13/17 08:23 Oxygen Flow Rate 2 Oxygen Delivery Method Room Air Weight: 94.6 kg Body Mass Index (BMI) 32.7 Intake and Output for Last 24 Hours 08/11/17 08/12/17 08/13/17 23:59 23:59 23:59 Intake Total 1603 / 1603 Output Total 1550 / 1550 Balance 53 / 53 Laboratory Tests Past 24 Hrs 08/13/17 08/13/17 05:25 05:25 WBC 6.5 RBC 2.79 L Hgb 8.8 L Hct 28.3 L MCV 101.4 H MCH 31.5 MCHC 31.1 L RDW 15.2 H RDW Differential 55.1 H Plt Count 137 L MPV 8.7 Immature Gran % (Auto) 0.200 Neut % (Auto) 78.1 H Lymph % (Auto) 11.5 L Boone % (Auto) 5.7 Eos % (Auto) 4.2 Baso % (Auto) 0.3 Absolute Neuts (auto) 5.1 Absolute Lymphs (auto) 0.74 L Total Counted Not Reportable Sodium 139 Potassium 4.1 Chloride 102 Carbon Dioxide 27.0 Anion Gap 10 BUN 31 H Creatinine 5.33 H Estim Creat Clear Calc 12.74 Est GFR (MDRD) Af Amer 11 L Est GFR (MDRD) Non-Af 9 L BUN/Creatinine Ratio 5.8 L Glucose 181 H Calcium 8.1 L POC Glucose 08/13/17 08/12/17 08/12/17 02:09 21:18 16:26 POC Glucose 183 H 127 H 109 08/12/17 11:12 POC Glucose 109 Assessment/Plan Active and Suspected Problems ? Early small bowel obstruction (Acute) Possible Infectious Colitis (Acute) Abdominal pain (Acute) Inflammation of small intestine (Acute) Patient is a 41-year-old female admitted 08/12/2017 due to abdominal pain. She has a past medical history of end-stage renal disease, type 2 diabetes mellitus, hypertension, hyperlipidemia, tobacco abuse, obesity, chronic systolic CHF, CAD. 1. Suspected infectious colitis vs gastroenteritis-possible small bowel obstruction ruled out. Patient continues to complain of abdominal pain in the umbilical area, nausea, chills although improved. Initial CT of abdomen pelvis showed possible acute inflammation of the proximal small bowel and early or partial small bowel obstruction. Repeat KUB this morning shows unremarkable bowel gas pattern, no obvious mass or dilated bowel. No small bowel obstruction noted. Dr. Zhang consulted. NPO with ice chips. Continue IV famotidine. Zofran as needed for nausea. Continue IV Zosyn. Morphine as needed for pain. White count normal. Afebrile. 2. Anemia of chronic disease/iron deficiency anemia-stable, monitor CBC. Previously on iron supplementation which has since been discontinued. 3. End-stage renal failure-on hemodialysis. Nephrology consulted. Continue current hemodialysis regimen. Next dialysis will be on 08/14/2017. 4. Chronic diastolic CHF-no acute exacerbation. Previous echocardiogram 07/14/2015 showed an estimated ejection fraction of 65%, moderate left ventricular hypertrophy. This was improved from echo in 2012 in which her LV function was 40%. 5. CAD-continue aspirin, beta-lewis. Previous cath in 2012 showed mild LAD disease. 6. Hyperlipidemia-not on statin. Recent lipid panel in June 2017 WNL. 7. Type 2 diabetes mellitus-with associated neuropathy and gastroparesis. Continue home long-acting insulin regimen. Accu-Cheks before meals at bedtime with sliding scale insulin. 8. Depression/anxiety-as needed IV Ativan. Can resume home Xanax regimen when able to tolerate oral intake. Patient was on Prozac in the past. Recommend tapering benzodiazepine and placing back on SSRI in the future. 9. Tobacco abuse-encourage smoking cessation. 10. Obesity-encouraged lifestyle and dietary modifications. 11. 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 Patient has history of cysts and the general buttock area which have required excision in the past. Consult wound RN. Continue wet-to-dry dressing changes. Tunneling present, surrounding tissue appears macerated. Consult Dr. Munroe. Wound culture pending. DVT prophylaxis-heparin subcu. This patient was seen by SATNAM Mcgraw under the supervision of Dr. Kulkarni. <Alireza Kulkarni - Last Filed: 08/13/17 14:13> Subjective: Patient passed flatus and bowel movement. Has mild abdominal discomfort but denies abdominal pain. She mentioned about her pilonidal sinus, she had excision of pilonidal sinus about 4 years ago. Since then she has seropurulent discharge. - Physical Exam General: Alert, Oriented x3, Cooperative HEENT: Atraumatic, PERRLA, EOMI, Normocephalic Neck: Supple, No JVD, Negative Carotid Bruits Lungs: Clear to auscultation, Normal air movement Cardiovascular: Regular rate, Regular Rhythm, Normal S1, Normal S2, No murmurs Abdomen: Bowel Sounds Present, Soft, Non Tender Extremities: No edema, Capillary Refill Less than 3 Seconds Skin: No rashes, No breakdown, Ulcer/ Wound - cleft nonhealing wound, macerated, tunneling. It is large linear with thickened wound margin with overhanging subcutaneous tissue suggestive of CHR nonhealing ULCER Musculoskeletal: No Tenderness to Palpation of Joints or Extremities Neurological: Cranial nerves II-XII grossly intact Psych/Mental Status: Normal Affect, Appropriate Vital Signs Temp Pulse Resp BP Pulse Ox 98.4 F 85 18 130/72 H 95 01/21/18 07:51 08/13/17 08:07 08/13/17 08:23 08/13/17 07:51 08/13/17 08:23 Oxygen Flow Rate 2 Oxygen Delivery Method Room Air Weight: 208 lb 8.917 oz Body Mass Index (BMI) 32.7 Intake and Output for Last 24 Hours 08/11/17 08/12/17 08/13/17 23:59 23:59 23:59 Intake Total 1603 / 1603 927 / 927 Output Total 1550 / 1550 300 / 300 Balance 53 / 53 627 / 627 Microbiology Past 72 Hours 08/12/17 08:30 Gram Stain - Final Wound - Buttock Wound Culture - Preliminary Staphylococcus species Laboratory Tests Past 24 Hrs 08/13/17 08/13/17 05:25 05:25 WBC 6.5 RBC 2.79 L Hgb 8.8 L Hct 28.3 L MCV 101.4 H MCH 31.5 MCHC 31.1 L RDW 15.2 H RDW Differential 55.1 H Plt Count 137 L MPV 8.7 Immature Gran % (Auto) 0.200 Neut % (Auto) 78.1 H Lymph % (Auto) 11.5 L Boone % (Auto) 5.7 Eos % (Auto) 4.2 Baso % (Auto) 0.3 Absolute Neuts (auto) 5.1 Absolute Lymphs (auto) 0.74 L Total Counted Not Reportable Sodium 139 Potassium 4.1 Chloride 102 Carbon Dioxide 27.0 Anion Gap 10 BUN 31 H Creatinine 5.33 H Estim Creat Clear Calc 12.74 Est GFR (MDRD) Af Amer 11 L Est GFR (MDRD) Non-Af 9 L BUN/Creatinine Ratio 5.8 L Glucose 181 H Calcium 8.1 L POC Glucose 08/13/17 08/13/17 08/13/17 12:13 09:33 02:09 POC Glucose 152 H 181 H 183 H 08/12/17 08/12/17 21:18 16:26 POC Glucose 127 H 109 Assessment/Plan This patient was seen in conjunction with MEDICAL CLAIMS REPRESENTATIVE, Fiorella. I have independently interviewed and examined the patient and reviewed pertinent history, examination findings, laboratory and plan of management. I have reviewed the note and agree with the documented findings with the few additional points. In brief, patient is admitted for small bowel early/partial obstruction complicated with possible infectious colitis. Patient had large bowel movement. CT scan also showed omental fat in the umbilical hernia but no bowel incarceration. Patient has chronic paranasal sinus with ulcer. Preliminary Gram stain of wound culture shows staph species. Plastic surgeon, Dr. Munroe consulted I have discussed my assessment with MEDICAL CLAIMS REPRESENTATIVE, Fiorella and orders have been reviewed. Clinical Impression(s) from Imaging Studies Abdomen/Pelvis CT 08/12/17 02:22 IMPRESSION: 1. CT findings suggest possible acute inflammation of the proximal small bowel and early or partial small bowel obstruction. Ileus is thought less likely. 2. Hepatomegaly and splenomegaly. Electronically Signed: Val Cabrera MD at 4:16 EST , Service support , KUB X-Ray 08/12/17 12:45 IMPRESSION: No evidence of small bowel obstruction. Electronically Signed: Antwon Chino MD at 18:08 EST , Service support , KUB X-Ray 08/13/17 05:55 IMPRESSION: Enteric contrast is still visible in the colon but there has been interim decrease in amount of enteric contrast since the previous study. Electronically Signed: Val Cabrera MD at 6:13 EST , Service support , This note was generated with [email or web address] dictation software. Every effort was made to ensure accuracy, however computerized fire protection engineer mistakes may persist. Code Visit Inpatient E&M: 10887 Subs Hosp L3
[2017-08-13 09:41] LABS: Bedside Glucose 181 mg/dL (70-110)
[2017-08-13] MEDS: Piperacil/Tazobactam 3.375 GM/50 ML ML IV ×2 (09:44→21:45)
--- NOTE | 2017-08-13 09:46 | PN_ITS ---
<Fiorella Gan - Last Filed: 08/13/17 09:48> Patient Problems: Active and Suspected Problems ? Early small bowel obstruction (Acute) Possible Infectious Colitis (Acute) Abdominal pain (Acute) Inflammation of small intestine (Acute) Subjective: Patient seen and examined. States she had a small loose bowel movement this morning. Abdominal pain slightly improved. Continues to complain of chills. Nausea improved. No emesis. Denies other complaints. - Physical Exam General: Alert, Oriented x3, Cooperative, No apparent distress HEENT: Atraumatic, PERRLA, EOMI, Normocephalic Oral: Dry Mucosa Neck: Supple, No JVD, Negative Carotid Bruits Lungs: Clear to auscultation, Diminished Cardiovascular: Regular rate, Regular Rhythm, Normal S1, Normal S2, No murmurs Abdomen: Bowel Sounds Present, Soft, Obese, Tender - Mild TTP central abdomen, Hernia - Umbilical Extremities: No clubbing, No cyanosis, No edema, Capillary Refill Less than 3 Seconds Skin: No rashes, No breakdown, Ulcer/ Wound - cleft nonhealing wound, macerated, tunneling. Musculoskeletal: No Tenderness to Palpation of Joints or Extremities Neurological: Cranial nerves II-XII grossly intact, Neuro grossly intact Psych/Mental Status: Normal Affect, Appropriate Vital Signs Temp Pulse Resp BP Pulse Ox 98.4 F 85 18 130/72 H 95 08/13/17 07:51 08/13/17 08:07 08/13/17 08:23 08/13/17 07:51 08/13/17 08:23 Oxygen Flow Rate 2 Oxygen Delivery Method Room Air Weight: 94.6 kg Body Mass Index (BMI) 32.7 Intake and Output for Last 24 Hours 08/11/17 08/12/17 08/13/17 23:59 23:59 23:59 Intake Total 1603 / 1603 Output Total 1550 / 1550 Balance 53 / 53 Laboratory Tests Past 24 Hrs 08/13/17 08/13/17 05:25 05:25 WBC 6.5 RBC 2.79 L Hgb 8.8 L Hct 28.3 L MCV 101.4 H MCH 31.5 MCHC 31.1 L RDW 15.2 H RDW Differential 55.1 H Plt Count 137 L MPV 8.7 Immature Gran % (Auto) 0.200 Neut % (Auto) 78.1 H Lymph % (Auto) 11.5 L [place] % (Auto) 5.7 Eos % (Auto) 4.2 Baso % (Auto) 0.3 Absolute Neuts (auto) 5.1 Absolute Lymphs (auto) 0.74 L Total Counted Not Reportable Sodium 139 Potassium 4.1 Chloride 102 Carbon Dioxide 27.0 Anion Gap 10 BUN 31 H Creatinine 5.33 H Estim Creat Clear Calc 12.74 Est GFR (MDRD) Af Amer 11 L Est GFR (MDRD) Non-Af 9 L BUN/Creatinine Ratio 5.8 L Glucose 181 H Calcium 8.1 L POC Glucose 08/13/17 08/12/17 08/12/17 02:09 21:18 16:26 POC Glucose 183 H 127 H 109 08/12/17 11:12 POC Glucose 109 Assessment/Plan Active and Suspected Problems ? Early small bowel obstruction (Acute) Possible Infectious Colitis (Acute) Abdominal pain (Acute) Inflammation of small intestine (Acute) Patient is a 41-year-old female admitted 08/12/2017 due to abdominal pain. She has a past medical history of end-stage renal disease, type 2 diabetes mellitus , hypertension, hyperlipidemia, tobacco abuse, obesity, chronic systolic CHF, CAD. 1. Suspected infectious colitis vs gastroenteritis-possible small bowel obstruction ruled out. Patient continues to complain of abdominal pain in the umbilical area, nausea, chills although improved. Initial CT of abdomen pelvis showed possible acute inflammation of the proximal small bowel and early or partial small bowel obstruction. Repeat KUB this morning shows unremarkable bowel gas pattern, no obvious mass or dilated bowel. No small bowel obstruction noted. Dr. Zhang consulted. NPO with ice chips. Continue IV famotidine. Zofran as needed for nausea. Continue IV Zosyn. Morphine as needed for pain. White count normal. Afebrile. 2. Anemia of chronic disease/iron deficiency anemia-stable, monitor CBC. Previously on iron supplementation which has since been discontinued. 3. End-stage renal failure-on hemodialysis. Nephrology consulted. Continue current hemodialysis regimen. Next dialysis will be on 08/14/2017. 4. Chronic diastolic CHF-no acute exacerbation. Previous echocardiogram 2014 showed an estimated ejection fraction of 65%, moderate left ventricular hypertrophy. This was improved from echo in 2012 in which her LV function was 40%. 5. CAD-continue aspirin, beta-lewis. Previous cath in 2012 showed mild LAD disease. 6. Hyperlipidemia-not on statin. Recent lipid panel in June 2017 WNL. 7. Type 2 diabetes mellitus-with associated neuropathy and gastroparesis. Continue home long-acting insulin regimen. Accu-Cheks before meals at bedtime with sliding scale insulin. 8. Depression/anxiety-as needed IV Ativan. Can resume home Xanax regimen when able to tolerate oral intake. Patient was on Prozac in the past. Recommend tapering benzodiazepine and placing back on SSRI in the future. 9. Tobacco abuse-encourage smoking cessation. 10. Obesity-encouraged lifestyle and dietary modifications. 11. 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 Patient has history of cysts and the general buttock area which have required excision in the past. Consult wound RN. Continue wet-to-dry dressing changes. Tunneling present, surrounding tissue appears macerated. Consult Dr. Munroe. Wound culture pending. DVT prophylaxis-heparin subcu. This patient was seen by SATNAM Mcgraw under the supervision of Dr. Kulkarni. <Alireza Kulkarni - Last Filed: 08/13/17 14:13> Subjective: Patient passed flatus and bowel movement. Has mild abdominal discomfort but denies abdominal pain. She mentioned about her pilonidal sinus, she had excision of pilonidal sinus about 4 years ago. Since then she has seropurulent discharge. - Physical Exam General: Alert, Oriented x3, Cooperative HEENT: Atraumatic, PERRLA, EOMI, Normocephalic Neck: Supple, No JVD, Negative Carotid Bruits Lungs: Clear to auscultation, Normal air movement Cardiovascular: Regular rate, Regular Rhythm, Normal S1, Normal S2, No murmurs Abdomen: Bowel Sounds Present, Soft, Non Tender Extremities: No edema, Capillary Refill Less than 3 Seconds Skin: No rashes, No breakdown, Ulcer/ Wound - Marcella cleft nonhealing wound, macerated, tunneling. It is large linear with thickened wound margin with overhanging subcutaneous tissue suggestive of CHR nonhealing ULCER Musculoskeletal: No Tenderness to Palpation of Joints or Extremities Neurological: Cranial nerves II-XII grossly intact Psych/Mental Status: Normal Affect, Appropriate Vital Signs Temp Pulse Resp BP Pulse Ox 98.4 F 85 18 130/72 H 95 01/21/18 07:51 08/13/17 08:07 08/13/17 08:23 08/13/17 07:51 08/13/17 08:23 Oxygen Flow Rate 2 Oxygen Delivery Method Room Air Weight: 208 lb 8.917 oz Body Mass Index (BMI) 32.7 Intake and Output for Last 24 Hours 08/11/17 08/12/17 08/13/17 23:59 23:59 23:59 Intake Total 1603 / 1603 927 / 927 Output Total 1550 / 1550 300 / 300 Balance 53 / 53 627 / 627 Microbiology Past 72 Hours 08/12/17 08:30 Gram Stain - Final Wound - Buttock Wound Culture - Preliminary Staphylococcus species Laboratory Tests Past 24 Hrs 08/13/17 08/13/17 05:25 05:25 WBC 6.5 RBC 2.79 L Hgb 8.8 L Hct 28.3 L MCV 101.4 H MCH 31.5 MCHC 31.1 L RDW 15.2 H RDW Differential 55.1 H Plt Count 137 L MPV 8.7 Immature Gran % (Auto) 0.200 Neut % (Auto) 78.1 H Lymph % (Auto) 11.5 L [place] % (Auto) 5.7 Eos % (Auto) 4.2 Baso % (Auto) 0.3 Absolute Neuts (auto) 5.1 Absolute Lymphs (auto) 0.74 L Total Counted Not Reportable Sodium 139 Potassium 4.1 Chloride 102 Carbon Dioxide 27.0 Anion Gap 10 BUN 31 H Creatinine 5.33 H Estim Creat Clear Calc 12.74 Est GFR (MDRD) Af Amer 11 L Est GFR (MDRD) Non-Af 9 L BUN/Creatinine Ratio 5.8 L Glucose 181 H Calcium 8.1 L POC Glucose 08/13/17 08/13/17 08/13/17 12:13 09:33 02:09 POC Glucose 152 H 181 H 183 H 08/12/17 08/12/17 21:18 16:26 POC Glucose 127 H 109 Assessment/Plan This patient was seen in conjunction with [facility]AMP[facility] HAND, Fiorella. I have independently interviewed and examined the patient and reviewed pertinent history, examination findings, laboratory and plan of management. I have reviewed the note and agree with the documented findings with the few additional points. In brief, patient is admitted for small bowel early/partial obstruction complicated with possible infectious colitis. Patient had large bowel movement. CT scan also showed omental fat in the umbilical hernia but no bowel incarceration. Patient has chronic paranasal sinus with ulcer. Preliminary Gram stain of wound culture shows staph species. Plastic surgeon, Dr. Munroe consulted I have discussed my assessment with [facility] HAND, Fiorella and orders have been reviewed. Clinical Impression(s) from Imaging Studies Abdomen/Pelvis CT 08/12/17 02:22 IMPRESSION: 1. CT findings suggest possible acute inflammation of the proximal small bowel and early or partial small bowel obstruction. Ileus is thought less likely. 2. Hepatomegaly and splenomegaly. Electronically Signed: Val Cabrera MD at 4:16 EST , Service support , KUB X-Ray 08/12/17 12:45 IMPRESSION: No evidence of small bowel obstruction. Electronically Signed: Antwon Chino MD at 18:08 EST , Service support , KUB X-Ray 08/13/17 05:55 IMPRESSION: Enteric contrast is still visible in the colon but there has been interim decrease in amount of enteric contrast since the previous study. Electronically Signed: Val Cabrera MD at 6:13 EST , Service support , This note was generated with [employer] dictation software. Every effort was made to ensure accuracy, however computerized sanforizing machine operator mistakes may persist. Code Visit Inpatient E&M: 16052 Subs Hosp L3
--- NOTE | 2017-08-13 10:50 | PCM.PN.SRG ---
Patient Problems: Active and Suspected Problems ? Early small bowel obstruction (Acute) Possible Infectious Colitis (Acute) Abdominal pain (Acute) Inflammation of small intestine (Acute) Subjective: still complaining of abdominal pain, no nausea or vomiting, passing flatus, large bowel movement yesterday - Physical Exam General: Alert, Oriented x3 Lungs: Clear to auscultation, Normal air movement Cardiovascular: Regular rate, Regular Rhythm Abdomen: Bowel Sounds Present, Soft, - - mildly distended, umbilical hernia, nontender Skin: Ulcer/ Wound - pilonidal cyst area/ cleft-chronic induration and a 5 x 6 cm area consistent with pilonidal cyst with multiple draining sinus tracts Vital Signs Temp Pulse Resp BP Pulse Ox 98.4 F 85 18 130/72 H 95 08/13/17 07:51 08/13/17 08:07 08/13/17 08:23 08/13/17 07:51 08/13/17 08:23 Oxygen Flow Rate 2 Oxygen Delivery Method Room Air Weight: 94.6 kg Body Mass Index (BMI) 32.7 Intake and Output for Last 24 Hours 08/11/17 08/12/17 08/13/17 23:59 23:59 23:59 Intake Total 1603 / 1603 Output Total 1550 / 1550 Balance 53 / 53 Laboratory Tests Past 24 Hrs 08/13/17 08/13/17 05:25 05:25 WBC 6.5 RBC 2.79 L Hgb 8.8 L Hct 28.3 L MCV 101.4 H MCH 31.5 MCHC 31.1 L RDW 15.2 H RDW Differential 55.1 H Plt Count 137 L MPV 8.7 Immature Gran % (Auto) 0.200 Neut % (Auto) 78.1 H Lymph % (Auto) 11.5 L [place] % (Auto) 5.7 Eos % (Auto) 4.2 Baso % (Auto) 0.3 Absolute Neuts (auto) 5.1 Absolute Lymphs (auto) 0.74 L Total Counted Not Reportable Sodium 139 Potassium 4.1 Chloride 102 Carbon Dioxide 27.0 Anion Gap 10 BUN 31 H Creatinine 5.33 H Estim Creat Clear Calc 12.74 Est GFR (MDRD) Af Amer 11 L Est GFR (MDRD) Non-Af 9 L BUN/Creatinine Ratio 5.8 L Glucose 181 H Calcium 8.1 L POC Glucose 08/13/17 08/13/17 08/12/17 09:33 02:09 21:18 POC Glucose 181 H 183 H 127 H 08/12/17 08/12/17 16:26 11:12 POC Glucose 109 109 Assessment/Plan Active and Suspected Problems ? Early small bowel obstruction (Acute) Possible Infectious Colitis (Acute) Abdominal pain (Acute) Inflammation of small intestine (Acute) nausea, vomiting, abdominal pain-increasing discomfort. Umbilical hernia - creasing discomfort and umbilical hernia site with vomiting, but now decreased. CT scan imaging was reviewed. There was omental fat in the hernia without signs of bowel incarceration. I do not feel she has a bowel obstruction due to her umbilical hernia. There also does not seem to be rather significant findings consistent with a bowel obstruction and given the fact this is a noncontrast CT scan feel that it is difficult to truly say the patient has proximal small bowel thickening. There are certainly no air-fluid levels or heart or signs of bowel obstruction. Gastrografin was given yesterday. The contrast went quickly through the small bowel to the colon. The patient had a large bowel movement of greater than 1000 cc recorded. KUB this morning demonstrates some residual contrast along the colon and some small bowel gas, which was described as normal per the radiologist. From my standpoint. This is more consistent with ileus, gastroenteritis picture. Not an obstruction. I'm comfortable with the patient having clear liquids. in discussion with the patient-she states she had an incision and drainage of a pilonidal cyst approximately 4 years previously. She now notes multiple developing sinuses around the area. 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 I recommend referral to plastics anticipating she will need a wide excision and long-term wound care with wound VAC for probable protracted healing given her underlying medical condition and tobacco use.
[2017-08-13 12:16] LABS: Bedside Glucose 152 mg/dL (70-110)
--- NOTE | 2017-08-13 15:35 | NURSING ---
SPOKE WITH DR LOVELACE, HE IS AWARE PT WILL STILL BE HERE 08/14 FOR HER DIALYSIS
[2017-08-13 17:01] LABS: Bedside Glucose 148 mg/dL (70-110)
--- NOTE | 2017-08-13 19:29 | PN.RENAL_ITS ---
Patient Problems: Active and Suspected Problems ? Early small bowel obstruction (Acute) Possible Infectious Colitis (Acute) Abdominal pain (Acute) Inflammation of small intestine (Acute) Subjective: Following for end-stage renal disease. Abdominal pain is better but not totally resolved. Patient denies chest pain, shortness of breath, nausea, vomiting. - Physical Exam General: Alert, Oriented x3 HEENT: Atraumatic, Normocephalic Oral: Moist Mucosa Neck: Supple Lungs: Clear to auscultation Cardiovascular: Normal S1, Normal S2, No murmurs Abdomen: Bowel Sounds Present, Soft, Tender Extremities: No clubbing, No cyanosis, No edema Vital Signs Temp Pulse Resp BP Pulse Ox 98.2 F 87 18 137/69 H 95 08/13/17 14:30 08/13/17 15:36 08/13/17 14:30 08/13/17 14:30 08/13/17 14:30 Oxygen Flow Rate 2 Oxygen Delivery Method Room Air Weight: 94.6 kg Body Mass Index (BMI) 32.7 Intake and Output for Last 24 Hours 08/11/17 08/12/17 08/13/17 23:59 23:59 23:59 Intake Total 1603 / 1603 1748 / 1748 Output Total 1550 / 1550 500 / 500 Balance 53 / 53 1248 / 1248 Microbiology Past 72 Hours 08/12/17 08:30 Gram Stain - Final Wound - Buttock Wound Culture - Preliminary Staphylococcus species Laboratory Tests Past 24 Hrs 08/13/17 08/13/17 05:25 05:25 WBC 6.5 RBC 2.79 L Hgb 8.8 L Hct 28.3 L MCV 101.4 H MCH 31.5 MCHC 31.1 L RDW 15.2 H RDW Differential 55.1 H Plt Count 137 L MPV 8.7 Immature Gran % (Auto) 0.200 Neut % (Auto) 78.1 H Lymph % (Auto) 11.5 L [place] % (Auto) 5.7 Eos % (Auto) 4.2 Baso % (Auto) 0.3 Absolute Neuts (auto) 5.1 Absolute Lymphs (auto) 0.74 L Total Counted Not Reportable Sodium 139 Potassium 4.1 Chloride 102 Carbon Dioxide 27.0 Anion Gap 10 BUN 31 H Creatinine 5.33 H Estim Creat Clear Calc 12.74 Est GFR (MDRD) Af Amer 11 L Est GFR (MDRD) Non-Af 9 L BUN/Creatinine Ratio 5.8 L Glucose 181 H Calcium 8.1 L POC Glucose 08/13/17 08/13/17 08/13/17 16:46 12:13 09:33 POC Glucose 148 H 152 H 181 H 08/13/17 08/12/17 02:09 21:18 POC Glucose 183 H 127 H Assessment/Plan Active and Suspected Problems ? Early small bowel obstruction (Acute) Possible Infectious Colitis (Acute) Abdominal pain (Acute) Inflammation of small intestine (Acute) 1. End-stage renal disease. The patient usually dialyzes on a Monday, Monday and Monday dialysis schedule. There is no need for dialysis today. Would recommend dosing medications for creatinine clearance of less than 10. Next scheduled dialysis will be on 08/14/2017. 2. Hypertension. Blood pressure is acceptable. Continue current blood pressure medications. We will continue to monitor. 3. Anemia. Continue to monitor hemoglobin. Continue erythropoiesis stimulating agent with dialysis. 4. Chronic kidney disease-mineral bone disorder. Patient had been on calcium acetate with meals for phosphorus binding. We are holding calcium acetate for now because she is n.p.o. Restart calcium acetate once she is able to eat again. 5. Abdominal pain. Workup is underway as directed by surgery and hospital medicine services. Etiology is thought to be most likely secondary to ileus versus gastroenteritis. Patient is symptomatically improved. 6. Pilonidal cyst. Plastic surgery has been consulted to see the patient.
[2017-08-13] MEDS: Carvedilol 25 MG Tablet PO (20:09)
[2017-08-13] MEDS: LORazepam 2 MG/ML Syringe 0.5 MG IV (20:11)
[2017-08-13 20:26] LABS: Bedside Glucose 236 mg/dL (70-110)
[2017-08-13 22:21] LABS: M R Staph aureus DNA By PCR Negative (Negative); Staph aureus DNA By PCR NEGATIVE (Negative)
[2017-08-13 22:22] LABS: Probe Check PASS; Specimen Processing Control PASS
[2017-08-14] VITALS (10 sets, daily range): BP systolic 109–149; BP diastolic 56–73; PULSE 64–80; RESP 16–18; TEMP 36.3–37.1; O2SAT 93–98
[2017-08-14 05:52] LABS: Hematocrit 24.2 % (37-47); Hemoglobin 7.7 g/dl (12.0-15.0); Mean Corp Hgb Conc 31.8 g/gl (32-36); Mean Corpuscular Hgb 32.2 pg (27.0-32.0); Mean Corpuscular Volume 101.3 fL (81-99); Mean Platelet Vol. 8.7 fl (6.2-12.0); Platelet Count 135 K/mm3 (150-450); RBC Distribution Width CV 14.6 % (11.6-14.6); RBC Distribution Width SD 50.7 fl (35.1-43.9); Red Blood Count 2.39 M/mm3 (4.2-5.4); White Blood Count 5.8 K/mm3 (4.4-11.0)
[2017-08-14 05:53] LABS: Scan Indicated on CBC? Y/N NO
[2017-08-14 06:09] LABS: Anion Gap 9 (5-15); BUN 35 mg/dL (7-18); BUN/Creat Ratio 5.6 RATIO (10-20); Calcium,Total 8.2 mg/dL (8.5-10.1); Chloride 101 mmol/L (98-107); Creatinine, Serum 6.23 mg/dL (0.55-1.02); EST Glomerular Filtration Rate 8 mL/min (>60); Est Glom Filt Rate - Afr Amer 9 mL/min (>60); Glucose 172 mg/dL (70-110); Potassium 4.2 mmol/L (3.5-5.1); Sodium Level 137 mmol/L (136-145)
[2017-08-14 06:56] LABS: Bedside Glucose 172 mg/dL (70-110)
--- NOTE | 2017-08-14 07:11 | PCM.PN.SRG ---
Patient Problems: Active and Suspected Problems ? Early small bowel obstruction (Acute) Possible Infectious Colitis (Acute) Abdominal pain (Acute) Inflammation of small intestine (Acute) Subjective: 5 liquid BM yesterday, less pain, nausea - Physical Exam General: Alert, Oriented x3 Lungs: Clear to auscultation, Normal air movement Cardiovascular: Regular rate, Regular Rhythm Abdomen: Bowel Sounds Present, Soft, Non Tender, - - umbilical hernia Vital Signs Temp Pulse Resp BP Pulse Ox 97.4 F L 80 18 141/68 H 96 08/14/17 02:30 08/14/17 02:30 08/14/17 02:30 08/14/17 02:30 08/14/17 02:30 Oxygen Flow Rate 2 Oxygen Delivery Method Nasal Cannula Weight: 95.1 kg Body Mass Index (BMI) 32.7 Intake and Output for Last 24 Hours 08/12/17 08/13/17 08/14/17 23:59 23:59 23:59 Intake Total 1603 / 1603 1748 / 1748 1630 / 1630 Output Total 1550 / 1550 500 / 500 300 / 300 Balance 53 / 53 1248 / 1248 1330 / 1330 Microbiology Past 72 Hours 08/12/17 08:30 Gram Stain - Final Wound - Buttock Wound Culture - Preliminary Staphylococcus species Laboratory Tests Past 24 Hrs 08/12/17 08/13/17 08/14/17 08:00 05:25 05:12 WBC 5.8 RBC 2.39 L Hgb 7.7 L Hct 24.2 L MCV 101.3 H MCH 32.2 H MCHC 31.8 L RDW 14.6 RDW Differential 50.7 H Plt Count 135 L MPV 8.7 Sodium 139 Potassium 4.1 Chloride 102 Carbon Dioxide 27.0 Anion Gap 10 BUN 31 H Creatinine 5.33 H Estim Creat Clear Calc 12.74 Est GFR (MDRD) Af Amer 11 L Est GFR (MDRD) Non-Af 9 L BUN/Creatinine Ratio 5.8 L Glucose 181 H Calcium 8.1 L S.aureus Protein A PCR NEGATIVE MRSA (PCR) Negative 08/14/17 05:12 WBC RBC Hgb Hct MCV MCH MCHC RDW RDW Differential Plt Count MPV Sodium 137 Potassium 4.2 Chloride 101 Carbon Dioxide 27.0 Anion Gap 9 BUN 35 H Creatinine 6.23 H Estim Creat Clear Calc 10.90 Est GFR (MDRD) Af Amer 9 L Est GFR (MDRD) Non-Af 8 L BUN/Creatinine Ratio 5.6 L Glucose 172 H Calcium 8.2 L S.aureus Protein A PCR MRSA (PCR) POC Glucose 08/14/17 08/13/17 08/13/17 06:36 20:07 16:46 POC Glucose 172 H 236 H 148 H 08/13/17 08/13/17 12:13 09:33 POC Glucose 152 H 181 H Assessment/Plan Active and Suspected Problems ? Early small bowel obstruction (Acute) Possible Infectious Colitis (Acute) Abdominal pain (Acute) Inflammation of small intestine (Acute) nausea, vomiting, abdominal pain-increasing discomfort. Umbilical hernia - creasing discomfort and umbilical hernia site with vomiting, but now decreased. CT scan imaging was reviewed. There was omental fat in the hernia without signs of bowel incarceration. I do not feel she has a bowel obstruction due to her umbilical hernia. There also does not seem to be rather significant findings consistent with a bowel obstruction and given the fact this is a noncontrast CT scan feel that it is difficult to truly say the patient has proximal small bowel thickening. There are certainly no air-fluid levels or heart or signs of bowel obstruction. Gastrografin was given yesterday. The contrast went quickly through the small bowel to the colon. The patient had a large bowel movement of greater than 1000 cc recorded. KUB this morning demonstrates some residual contrast along the colon and some small bowel gas, which was described as normal per the radiologist. From my standpoint. This is more consistent with ileus, gastroenteritis picture. The patient is tolerating liquids and having improved bowel activity. I'm comfortable with advancing the patient's diet. in discussion with the patient-she states she had an incision and drainage of a pilonidal cyst approximately 4 years previously. She now notes multiple developing sinuses around the area. 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 I recommend referral to plastics anticipating she will need a wide excision and long-term wound care with wound VAC for probable protracted healing given her underlying medical condition and tobacco use. WIll sign off - Thank you
[2017-08-14] MEDS: Aspirin 81 MG TAB.CHEW PO (08:29)
[2017-08-14] MEDS: Dext 5%-0.45% NS 1,000 ML 100 ML IV (09:47)
[2017-08-14] MEDS: Piperacil/Tazobactam 3.375 GM/50 ML ML IV ×2 (09:50→21:45)
[2017-08-14] MEDS: Carvedilol 25 MG Tablet PO ×2 (10:51→21:31)
[2017-08-14] MEDS: Lisinopril 20 MG Tablet PO (10:52)
[2017-08-14] MEDS: dilTIAZem CD 240 MG Capsule PO (10:52)
[2017-08-14] MEDS: Sodium Bicarbonate 650 MG Tablet PO (10:52)
--- NOTE | 2017-08-14 11:06 | NURSING ---
wound photo: itz cleft
[2017-08-14 12:06] LABS: Bedside Glucose 134 mg/dL (70-110)
--- NOTE | 2017-08-14 13:16 | PCM.PROGNOTE ---
<Fiorella Gan - Last Filed: 08/14/17 13:36> Patient Problems: Active and Suspected Problems ? Early small bowel obstruction (Acute) Possible Infectious Colitis (Acute) Abdominal pain (Acute) Inflammation of small intestine (Acute) Subjective: Patient seen and examined. Abdominal pain improved. Patient had large bowel movement overnight. She continues to complain of chills. Denies nausea, vomiting. Awaiting Dr. Munroe consult. Patient denies other complaints. - Physical Exam General: Alert, Oriented x3, Cooperative, No apparent distress HEENT: Atraumatic, PERRLA, EOMI, Normocephalic Oral: Moist Mucosa Neck: Supple, No JVD, Negative Carotid Bruits Lungs: Clear to auscultation, Diminished Cardiovascular: Regular rate, Regular Rhythm, Normal S1, Normal S2, No murmurs Abdomen: Bowel Sounds Present, Soft, Non Tender, Obese, - - Tender - Mild TTP central abdomen, Hernia - Umbilical. Extremities: No clubbing, No cyanosis, No edema, Capillary Refill Less than 3 Seconds Skin: No rashes, No breakdown Musculoskeletal: No Tenderness to Palpation of Joints or Extremities Neurological: Cranial nerves II-XII grossly intact, Neuro grossly intact Psych/Mental Status: Normal Affect, Appropriate Vital Signs Temp Pulse Resp BP Pulse Ox 98.0 F 79 18 148/70 H 97 08/14/17 08:41 08/14/17 08:41 08/14/17 08:41 08/14/17 08:41 08/14/17 08:41 Oxygen Flow Rate 2 Oxygen Delivery Method Room Air Weight: 95.1 kg Body Mass Index (BMI) 32.7 Intake and Output for Last 24 Hours 08/12/17 08/13/17 08/14/17 23:59 23:59 23:59 Intake Total 1603 / 1603 1748 / 1748 1630 / 1630 Output Total 1550 / 1550 500 / 500 300 / 300 Balance 53 / 53 1248 / 1248 1330 / 1330 Microbiology Past 72 Hours 08/12/17 08:30 Gram Stain - Final Wound - Buttock Wound Culture - Preliminary Beta streptococcus Gram positive carissa Laboratory Tests Past 24 Hrs 08/12/17 08/14/17 08/14/17 08:00 05:12 05:12 WBC 5.8 RBC 2.39 L Hgb 7.7 L Hct 24.2 L MCV 101.3 H MCH 32.2 H MCHC 31.8 L RDW 14.6 RDW Differential 50.7 H Plt Count 135 L MPV 8.7 Sodium 137 Potassium 4.2 Chloride 101 Carbon Dioxide 27.0 Anion Gap 9 BUN 35 H Creatinine 6.23 H Estim Creat Clear Calc 10.90 Est GFR (MDRD) Af Amer 9 L Est GFR (MDRD) Non-Af 8 L BUN/Creatinine Ratio 5.6 L Glucose 172 H Calcium 8.2 L S.aureus Protein A PCR NEGATIVE MRSA (PCR) Negative POC Glucose 08/14/17 08/14/17 08/13/17 11:59 06:36 20:07 POC Glucose 134 H 172 H 236 H 08/13/17 16:46 POC Glucose 148 H Assessment/Plan Active and Suspected Problems ? Early small bowel obstruction (Acute) Possible Infectious Colitis (Acute) Abdominal pain (Acute) Inflammation of small intestine (Acute) Patient is a 41-year-old female admitted 08/12/2017 due to abdominal pain. She has a past medical history of end-stage renal disease, type 2 diabetes mellitus, hypertension, hyperlipidemia, tobacco abuse, obesity, chronic systolic CHF, CAD. 1. Suspected infectious colitis vs gastroenteritis-Improving. Possible small bowel obstruction ruled out. Abdominal pain, nausea improved. Continues to have chills. Denies fever. Initial CT of abdomen pelvis showed possible acute inflammation of the proximal small bowel and early or partial small bowel obstruction. Repeat KUB 08/13/2017 showed unremarkable bowel gas pattern, no obvious mass or dilated bowel. No small bowel obstruction noted. Dr. Zhang consulted. Patient can advance diet once seen by Dr. Munroe, patient may need to undergo surgery for wound. Continue IV famotidine. Zofran as needed for nausea. Continue IV Zosyn. Morphine as needed for pain. White count normal. Afebrile. 2. Nonhealing itz cleft wound, suspected secondary to pilonidal cyst in which she had I&D in the past-present on admission. Patient has history of multiple cysts in the general buttock area which have required excision in the past. Consult wound RN. Continue wet-to-dry dressing changes. Tunneling present, surrounding tissue appears macerated. Consult Dr. Munroe, pending. Wound culture pending. Wound culture showing beta Streptococcus, gram-positive carissa. Continue IV zosyn as noted above. 3. End-stage renal failure-on hemodialysis. Nephrology consulted. Continue current hemodialysis regimen. Next dialysis will be on 08/14/2017. 4. Chronic diastolic CHF-no acute exacerbation. Previous echocardiogram 07/14/2015 showed an estimated ejection fraction of 65%, moderate left ventricular hypertrophy. This was improved from echo in 2012 in which her LV function was 40%. 5. CAD-continue aspirin, beta-lewis. Previous cath in 2012 showed mild LAD disease. 6. Hyperlipidemia-not on statin. Recent lipid panel in June 2017 WNL. 7. Type 2 diabetes mellitus-with associated neuropathy and gastroparesis. Continue home long-acting insulin regimen. Accu-Cheks before meals at bedtime with sliding scale insulin. 8. Depression/anxiety-as needed IV Ativan. Can resume home Xanax regimen when able to tolerate oral intake. Patient was on Prozac in the past. Recommend tapering benzodiazepine and placing back on SSRI in the future. 9. Tobacco abuse-encourage smoking cessation. 10. Obesity-encouraged lifestyle and dietary modifications. 11. Anemia of chronic disease/iron deficiency anemia-stable, monitor CBC. Previously on iron supplementation which has since been discontinued. DVT prophylaxis-heparin subcu. This patient was seen by SATNAM Mcgraw under the supervision of Dr. Roman. <Roberto Roman - Last Filed: 08/14/17 15:24> - Physical Exam General: Cooperative, No apparent distress HEENT: Atraumatic, Normocephalic Neck: No JVD, No Nodes Lungs: Clear to auscultation, Normal air movement, No rhonchi, No wheeze Cardiovascular: Regular rate, Regular Rhythm, Normal S1 Abdomen: Bowel Sounds Present, Soft, Non Tender, Obese, - Extremities: No clubbing, No cyanosis, No edema Psych/Mental Status: Normal Affect, Appropriate Vital Signs Temp Pulse Resp BP Pulse Ox 36.7 C 79 18 148/70 H 97 08/14/17 08:41 08/14/17 08:41 08/14/17 08:41 08/14/17 08:41 08/14/17 08:41 Oxygen Flow Rate 2 Oxygen Delivery Method Room Air Weight: 95.1 kg Body Mass Index (BMI) 32.7 Intake and Output for Last 24 Hours 08/12/17 08/13/17 08/14/17 23:59 23:59 23:59 Intake Total 1603 / 1603 1748 / 1748 1630 / 1630 Output Total 1550 / 1550 500 / 500 300 / 300 Balance 53 / 53 1248 / 1248 1330 / 1330 Microbiology Past 72 Hours 08/12/17 08:30 Gram Stain - Final Wound - Buttock Wound Culture - Preliminary Beta streptococcus Gram positive carissa Laboratory Tests Past 24 Hrs 08/12/17 08/14/17 08/14/17 08:00 05:12 05:12 WBC 5.8 RBC 2.39 L Hgb 7.7 L Hct 24.2 L MCV 101.3 H MCH 32.2 H MCHC 31.8 L RDW 14.6 RDW Differential 50.7 H Plt Count 135 L MPV 8.7 Sodium 137 Potassium 4.2 Chloride 101 Carbon Dioxide 27.0 Anion Gap 9 BUN 35 H Creatinine 6.23 H Estim Creat Clear Calc 10.90 Est GFR (MDRD) Af Amer 9 L Est GFR (MDRD) Non-Af 8 L BUN/Creatinine Ratio 5.6 L Glucose 172 H Calcium 8.2 L S.aureus Protein A PCR NEGATIVE MRSA (PCR) Negative Blood Type Antibody Screen Crossmatch 08/14/17 14:25 WBC RBC Hgb Hct MCV MCH MCHC RDW RDW Differential Plt Count MPV Sodium Potassium Chloride Carbon Dioxide Anion Gap BUN Creatinine Estim Creat Clear Calc Est GFR (MDRD) Af Amer Est GFR (MDRD) Non-Af BUN/Creatinine Ratio Glucose Calcium S.aureus Protein A PCR MRSA (PCR) Blood Type Pending Antibody Screen Pending Crossmatch See Detail POC Glucose 08/14/17 08/14/17 08/13/17 11:59 06:36 20:07 POC Glucose 134 H 172 H 236 H 08/13/17 16:46 POC Glucose 148 H Assessment/Plan Patient seen and examined independently. Agree with the above note by the nurse practitioner. 1. Small bowel obstruction: Resolved. 2. Gluteal cyst and sinus tracts. Patient seen by plastic and reproductive surgery. Plan is for I&D tomorrow. Possibility of patient requiring a diverting colostomy while these he will will be determined. 3. End-stage renal disease: On hemodialysis. Hemodialysis initiating today. 4. Heart failure with preserved ejection fraction. EF of 65% from echocardiogram from 07/14/2015. Code Visit Inpatient E&M: 69614 Subs Hosp L2
[2017-08-14] MEDS: Lidocaine/Prilocaine HCl 5 GM Tube TOPICAL (13:30)
--- NOTE | 2017-08-14 15:13 | PCM.PN.BLA ---
Progress Note seen on dialysis no new complaints ongoing diarrhea for OR tomorrow see orders/flowsheets BP 135/65 s1s2 clear
[2017-08-14 16:36] LABS: Bedside Glucose 93 mg/dL (70-110)
[2017-08-14] MEDS: Calcium Acetate 667 MG Capsule PO (18:45)
[2017-08-14] MEDS: 0.9% NaCl Peripheral Flush Adult/Peds IV (19:19)
[2017-08-14] MEDS: Ondansetron 4 MG/2 ML Vial IV (19:19)
[2017-08-14 21:56] LABS: Bedside Glucose 204 mg/dL (70-110)
[2017-08-14] MEDS: Nepro Liquid 120 ML LIQUID PO (22:27)
[2017-08-14] MEDS: Acetaminophen 325 MG Tablet 650 MG PO (23:39)
[2017-08-14] MEDS: ALPRAZolam 0.5 MG Tablet PO (23:39)
--- NOTE | 2017-08-14 23:42 | PCM.CONS.GEN ---
Reason for Consult Date of Consultation: 08/14/17 Reason for Consultation: Recurrent complicated extensive pilonidal cyst ulcers. REFERRING PHYSICIAN: Dr. Zhang. AUXILIARY ENGINEER: Dr. Munroe. History of Present Illness: The patient is a 41 year old F who was recently admitted a few days ago for increasing abdominal pain and swelling. It was thought she had an early or partial bowel obstruction which has resolved. Patient has been having bowel movements and has less abdominal pain and distention. While her obstruction was being treated, it was noted the patient has recurrent extensive complicated pilonidal cyst ulcers that were excised in the past about 4 years ago. She states there has been increasing drainage and discomfort in this area. She is currently on Zosyn. A CT Abdomen and Pelvis was obtained at admission which showed an early or partial bowel obstruction. No deep abscesses noted. I was asked to evaluate this patient for surgical options for treatment. Past Medical History Past Medical History (Chronic Problems): Chronic Problems Anemia, chronic disease (Chronic) Smoker (Chronic) GABRIEL (obstructive sleep apnea) (Chronic) ESRD on dialysis (Chronic) Depression (Chronic) Anxiety (Chronic) HTN (hypertension) (Chronic) Nonischemic cardiomyopathy (Chronic) With ejection fraction 45 - 50%; with angiographically normal coronary arteries 05/2013; follows up with Dr. Magdaleno S/P repair of PDA (patent ductus arteriosus) (Chronic) At young age Diabetes mellitus type 1 (Chronic) Hyperlipidemia (Chronic) Obesity (Chronic) Systolic congestive heart failure (Chronic) EF 40% Left ventricular diastolic dysfunction, NYHA class 2 (Chronic) Tobacco abuse (Chronic) Iron deficiency anemia due to chronic blood loss (Chronic) Dysmenorrhea history, s/p hysterectomy. Obesity (BMI 30.0-34.9) (Chronic) Gastroparesis (Chronic) Allergies latex Allergy (Verified 08/12/17 02:03) Rash levofloxacin [From Levaquin] Adverse Reaction (Verified 08/12/17 02:03) PT CAN'T REMEMBER PT CAN'T REMEMBER metoclopramide HCl [From Reglan] Adverse Reaction (Verified 08/12/17 02:03) Nausea NSAIDS (Non-Steroidal Anti-Inflamma Adverse Reaction (Verified 08/12/17 02:03) kidney function oxycodone HCl [From Percocet] Adverse Reaction (Verified 08/12/17 02:03) HALLUCINATIONS Current Medications Acetaminophen (Tylenol) 650 mg PO Q6H PRN Alprazolam (Xanax) 0.5 mg PO TID PRN Aspirin (Aspirin, Baby) 81 mg PO DAILY@0800 [facility] Calcium Acetate (Phoslo Gel Cap) 667 mg PO TIDCM FOR[facility]1983 Carvedilol (Coreg) 25 mg PO BID [facility]1983 Diltiazem HCl (Cardizem Cd) 240 mg PO DAILY [facility]1983 Glucagon () 1 mg IM .X1 PRN Heparin Sodium (Porcine) (Heparin Na) 5,000 unit SC BID [facility]1983 Hydralazine HCl (Apresoline) 10 mg IV Q4H PRN Piperacillin Sod/Tazobactam Sod (Zosyn) 3.375 gm in 50 mls @ 12.5 mls/hr IV Q12 [facility]1983 Famotidine 20 mg/ Sodium (Chloride) 10 mls @ 300 mls/hr IV DAILY [facility] Insulin Aspart (Novolog Flexpen (Bkc)) 0 units SC ACHS [facility]1983 Insulin Detemir (Levemir (Bkc)) 5 units SC QHS [facility]1983 Lisinopril (Zestril) 20 mg PO DAILY [facility] Lorazepam (Ativan) 0.5 mg IV Q6H PRN Magnesium Hydroxide (Milk Of Magnesia) 30 ml PO DAILY PRN Metoprolol Tartrate (Lopressor (Beta Chang)) 5 mg IV Q6H PRN Morphine Sulfate (Morphine) 2 - 4 mg IV Q4H PRN Nicotine (Nicoderm Cq (Pbkc)) 7 mg TRANSDERM. DAILY [facility] Nutritional Formula (Nepro Carb Steady) 120 ml PO 4X/DAY [facility] Nutritional Formula (Lactose Free) (Ensure Enlive) 120 ml PO 4X/DAY [facility] Ondansetron HCl (Zofran) 4 mg IV Q8H PRN Promethazine HCl (Phenergan (Ll)) 12.5 mg IV Q6H PRN Sodium Bicarbonate (Sodium Bicarbonate) 650 mg PO MOWEFR [place] PAST MEDICAL HISTORY ESRD on dialysis. Diabetes mellitus. Hypertension. Hyperlipidemia. Smoker. Obesity. CHF. CAD. Cardiomyopathy. GABRIEL. Anemia of chronic disease. Depression. Anxiety. Recurrent extensive complicated pilonidal cyst ulcers. Home Medications: Ambulatory Orders Medication Instructions Recorded Diltiazem HCl [Tiazac] 240 mg PO DAILY 07/10/15 Aspirin [Aspirin, Baby] 81 mg PO DAILY@0800 01/26/16 Calcium Acetate [Phoslo Gel Cap] 667 mg PO TIDCM 01/26/16 Ergocalciferol [Vitamin D] 50,000 unit PO FR 01/26/16 Insulin Aspart [Novolog Flexpen] 8 units SC TIDCM 01/26/16 Insulin Glargine,Hum.rec.anlog 5 unit SQ QHS 01/09/17 [Lantus] ProMETHAzine [Phenergan] 25 mg PO Q6H PRN PRN #10 tablet 03/06/17 Lidocaine/Prilocaine 1 unit TOPICAL PRN PRN 03/29/17 [Lidocaine-Prilocaine Cream] Lisinopril 20 mg PO DAILY 03/29/17 Omeprazole Magnesium [Prilosec Otc] 20 mg PO DAILY 03/29/17 Sodium Bicarbonate 650 mg PO MOWEFR 03/29/17 Acetaminophen [Tylenol Tablet] 650 mg PO Q6H PRN PRN tablet 03/31/17 Carvedilol [Coreg (Beta Chang)] 25 mg PO BID 06/17/17 Ondansetron [Zofran Odt] 4 mg PO Q8H PRN PRN #10 tablet 08/06/17 ALPRAZolam [Xanax] 0.5 mg PO PRN PRN 08/12/17 Surgical History: appendectomy, hysterectomy - and BSO, - - c-sections, L breast I+D for abscess, fistula placement LUE, L ankle surgery, appendectomy, PDA repair. Excision pilonidal cyst ulcer about 4 years ago. Psychiatric History: Anxiety, Depression Lives: Spouse/ Significant Other Smoking Status: Current every day smoker Tobacco Use: Cigarettes Alcohol: None Drugs: None - *Family History Maternal History Items: Cancer, COPD, Diabetes, Hypertension, Renal Disease, Stroke Paternal History Items: Diabetes Sibling History Items: Cancer, Diabetes Review of Systems Comment: Constitutional: Reports: Chills, Fever, Weakness, Fatigue. Denies: Weight Change. HEENT: Denies: Head Aches, Sinus Congestion, Sinus Drainage. Cardiovascular: Denies: Chest Pain, Palpitations. Respiratory: Denies: Cough, Shortness of breath at rest, Sputum production. Gastrointestinal: Reports: Abdominal Pain, Diarrhea, Nausea. Denies: Vomiting. Genitourinary: Denies: Dysuria. Musculoskeletal: Denies: Joint Pain, Joint Tenderness. Skin: Denies: Rash, Wounds. Neurological: Denies: Numbness, Tingling, Focal weakness. Psychiatric: Reports: Anxiety, Depression. Denies: Homicidal Ideations, Suicidal Ideations. Hematologic/ Lymphatic: Reports: Anemia. Denies: Easy Bruising, Easy Bleeding Patient Problems: Active and Suspected Problems Type 1 diabetes mellitus with other skin ulcer (Acute) recurrent extensive complicated pilonidal cyst ulcers Pilonidal cyst with abscess (Acute) ? Early small bowel obstruction (Acute) Possible Infectious Colitis (Acute) Abdominal pain (Acute) Inflammation of small intestine (Acute) - Physical Exam Physical Examination: General: awake, alert, oriented x 3 and cooperative. HEENT: EOMI, PERRLA. Lungs: Clear to auscultation. Mild decrease at bases. Heart: Regular rate and rhythm. Abdomen: soft, mildly distended. Extremities: no cyanosis, clubbing. Mild edema in lower extremities. Back: There is a recurrent extensive complicated pilonidal cyst ulcers. Measures 10 x 4 cm. Multiple openings and localized maceration. Some tenderness to palpation. Some nonpurulent drainage noted. Neurological: cranial nerves II-XII grossly intact. Psychiatric: normal mood and affect. Vital Signs Temp Pulse Resp BP Pulse Ox 98.7 F 76 16 144/71 H 93 08/14/17 21:24 08/14/17 21:24 08/14/17 21:24 08/14/17 21:24 08/14/17 21:24 Oxygen Flow Rate 1 Oxygen Delivery Method Nasal Cannula Weight: 209 lb 10.554 oz Body Mass Index (BMI) 32.7 Intake and Output for Last 24 Hours 08/12/17 08/13/17 08/14/17 23:59 23:59 23:59 Intake Total 1603 / 1603 1748 / 1748 2180 / 2180 Output Total 1550 / 1550 500 / 500 4200 / 4200 Balance 53 / 53 1248 / 1248 -2019 / Microbiology Past 72 Hours 08/12/17 08:30 Gram Stain - Final Wound - Buttock Wound Culture - Preliminary Beta streptococcus Gram positive carissa Laboratory Tests Past 24 Hrs 08/14/17 08/14/17 08/14/17 05:12 05:12 14:25 WBC 5.8 RBC 2.39 L Hgb 7.7 L Hct 24.2 L MCV 101.3 H MCH 32.2 H MCHC 31.8 L RDW 14.6 RDW Differential 50.7 H Plt Count 135 L MPV 8.7 Sodium 137 Potassium 4.2 Chloride 101 Carbon Dioxide 27.0 Anion Gap 9 BUN 35 H Creatinine 6.23 H Estim Creat Clear Calc 10.90 Est GFR (MDRD) Af Amer 9 L Est GFR (MDRD) Non-Af 8 L BUN/Creatinine Ratio 5.6 L Glucose 172 H Calcium 8.2 L Blood Type A NEGATIVE Antibody Screen POSITIVE H Antibody Identification ANTI-D Direct Antiglob Test NEG w/POLYSPECIFIC Crossmatch See Detail POC Glucose 08/14/17 08/14/17 08/14/17 21:44 16:31 11:59 POC Glucose 204 H 93 134 H 08/14/17 06:36 POC Glucose 172 H Assessment/Plan Active and Suspected Problems Type 1 diabetes mellitus with other skin ulcer (Acute) recurrent extensive complicated pilonidal cyst ulcers Pilonidal cyst with abscess (Acute) ? Early small bowel obstruction (Acute) Possible Infectious Colitis (Acute) Abdominal pain (Acute) Inflammation of small intestine (Acute) Assessment 1. Recurrent extensive complicated pilonidal cyst ulcers. 2. ESRD on dialysis. 3. Diabetes mellitus. 4. Anemia of chronic disease. 5. Smoker. Plan Recommend surgical preparation of this sacral area with excision recurrent extensive complicated pilonidal cyst ulcers. Will send tissue to Pathology for analysis to rule out carcinoma. Will send tissue to Microbiology for culture. A positive culture may necessitate antibiotic modification. Currently she is on Zosyn and will continue that. Will leave the wound open initially and try and place the VAC in this area. If there is trouble with the VAC, may need to go to daily dressing changes with a Silver dressing. If the wound extends very close to the anal opening, and there is wound care difficulties after surgery with stool contamination, patient would need a temporary diverting colostomy to allow better healing. Anticipate increased metabolic demands from the surgery and the infection. Will check a Prealbumin. Encourage nutritional supplementation with protein to help the healing process. Her Hgb is low today at 7.7. She gets dialysis three days per week on , , and . Will have her receive PRBC today when she gets dialyzed in preparation for the surgery. Will schedule the surgery for tomorrow. After discharge, can followup at [facility]. If there is a plateau in the healing process, can consider delayed closure with skin grafting. At that point, would need to stop smoking to allow better healing of the elective skin graft. Encouraged the patient to stop smoking as it may have deleterious effects on wound healing. Patient was informed of the risks and complications of the procedure including alternatives to surgery. These were discussed with her personally. She voices understanding and wishes to proceed. She understands that after surgery, the wound would be left open and wound care instituted. Code Visit Inpatient E&M: 72555 Init Hosp L2 - ICD-10 - L05.01, N18.6, E10.622, D63.8, F17.200
[2017-08-15] VITALS (12 sets, daily range): BP systolic 118–148; BP diastolic 56–95; PULSE 61–74; RESP 14–18; TEMP 36.1–36.7; O2SAT 91–100
--- NOTE | 2017-08-15 | PILCYST_PTH ---
PATIENT: KOURTNEY REZA LOC: 3 U#:[id number] AGE/SX: 41/F ROOM: [facility] [place] RE08/12/[address]: Dr. Rivka Charles MD : 1975 BED: 1 DIS: 08/21/2017 SPEC #: [id number] RECD: 08/15/17 14:48 STATUS: YADIRA REDagmar #: [id number] LUZMARIA: 08/15/17 00:[address]: Kayode Munroe DEPT: SURGICAL PATHOLOGY RECD BY: Bernardo Hughes ENTERED: 08/15/17 14:48 SP TYPE: Pilonidal OTHR DR: MD Dr. Roberto Melgar DO Dr. Linda Wang, MD Dr. Natthavat Tanphaichitr, MD Dr. Richard Guttman, MD Dr. William Lago, MD Amanda Graf, PA-C Amanda Griffith, PA-C Tissues: PILONIDAL TISSUE Procedures: Special Stain Group I Surgery Specimen Level III AFB Stain (control) GMS Stain (control) Comments: @ Ordering doctor for SUIII edited from to @ by FRANKLIN at 08/16/17918 @ Submitting doctor edited from to @ by FRANKLIN at 08/16/17918 HEADER OPERATION: Surgical preparation sacral area with excision PRE-OP DIAGNOSIS: Recurrent complicated pilonidal cyst ulcers TISSUE SUBMITTED: Pilonidal ulcers MICROSCOPIC DIAGNOSIS Pilonidal ulcer, excision: Squamous mucosa and underlying tissue with ulceration, benign epithelial inclusion cysts, acute and chronic inflammation and abscess formation. Negative for acid-fast bacilli and fungal organisms. AM:lester 08/16/17 COMMENT AFB and GMS stains with matched controls were used in the evaluation of this case. MICROSCOPIC DESCRIPTION Slides are reviewed. GROSS DESCRIPTION Received is one container labeled with the patient's name and not further designated. The specimen consists of two irregular fragments of champion skin with attached fibrofatty tissue. The smaller fragment measures 7 x 2 x 2 cm and the larger fragment measures 15 x 7 x 5 cm. Serial sections do not reveal mass lesions. Cast Iron Dipper sections are submitted in three cassettes. / AM:lester 08/15/17 TC:2 CPT: 36964, 74794 x2
--- NOTE | 2017-08-15 05:00 | EKG12_ITS ---
Test Reason : AM EKG Blood Pressure : / mmHG Vent. Rate : 060 BPM Atrial Rate : 060 BPM P-R Int : 146 ms QRS Dur : 094 ms QT Int : 504 ms P-R-T Axes : 021 060 075 degrees QTc Int : 504 ms Normal sinus rhythm Prolonged QT Abnormal ECG Confirmed by CHEPE BEASLEY, KAITLYNN ([id number]), medical editor SHANIA SOLITARIO ([id number]) on 08/24/2017 12:54:23 PM Referred By: DEBBY Confirmed By:KAITLYNN MO MD
[2017-08-15] MEDS: Ondansetron 4 MG/2 ML Vial IV ×2 (06:11→23:28)
[2017-08-15 06:19] LABS: Hematocrit 29.1 % (37-47); Hemoglobin 9.5 g/dl (12.0-15.0); Mean Corp Hgb Conc 32.6 g/gl (32-36); Mean Corpuscular Hgb 30.8 pg (27.0-32.0); Mean Corpuscular Volume 94.5 fL (81-99); Mean Platelet Vol. 8.5 fl (6.2-12.0); Platelet Count 123 K/mm3 (150-450); RBC Distribution Width CV 17.2 % (11.6-14.6); RBC Distribution Width SD 58.9 fl (35.1-43.9); Red Blood Count 3.08 M/mm3 (4.2-5.4); White Blood Count 5.5 K/mm3 (4.4-11.0)
[2017-08-15 06:20] LABS: Scan Indicated on CBC? Y/N NO
[2017-08-15 06:21] LABS: Bedside Glucose 144 mg/dL (70-110)
[2017-08-15 06:21] LABS: International Normalized Ratio 1.3; Prothrombin Time (Protime)PT. 15.3 SECONDS (11.7-14.9)
[2017-08-15 06:22] LABS: Partial Thromboplast Time 37.1 Seconds (24.1-36.2)
[2017-08-15 06:39] LABS: Anion Gap 9 (5-15); BUN 22 mg/dL (7-18); BUN/Creat Ratio 4.9 RATIO (10-20); Chloride 94 mmol/L (98-107); Creatinine, Serum 4.53 mg/dL (0.55-1.02); EST Glomerular Filtration Rate 11 mL/min (>60); Est Glom Filt Rate - Afr Amer 14 mL/min (>60); Estimated Creatinine Clearance 14.99 ml/min; Glucose 137 mg/dL (70-110); Potassium 3.2 mmol/L (3.5-5.1); Sodium Level 134 mmol/L (136-145)
[2017-08-15 08:36] LABS: Bedside Glucose 153 mg/dL (70-110)
[2017-08-15] MEDS: Piperacil/Tazobactam 3.375 GM/50 ML ML IV ×2 (10:00→21:44)
--- NOTE | 2017-08-15 10:31 | NURSING ---
Pt is currently off the unit in OR.
--- NOTE | 2017-08-15 11:46 | PCM.IMDPSTOP ---
Immediate Post-Op Note Date of Procedure: 08/15/17 Primary Surgeon/Physician: Kayode Munroe colors custodian: None Pre-Operative Diagnosis: 1. Recurrent extensive complicated pilonidal cyst ulcers. 2. ESRD on dialysis. 3. Diabetes mellitus. 4. Anemia of chronic disease. 5. Smoker. Post-Operative Diagnosis: 1. 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 2. ESRD on dialysis. 3. Diabetes mellitus. 4. Anemia of chronic disease. 5. Smoker. Surgery/Procedure Performed:: Surgical preparation sacral and left gluteal area with excision recurrent extensive complicated pilonidal cyst ulcers with left gluteal extension and necrotizing anal sphincter muscle involvement (152 cm2). Description of Surgical Findings:: The patient is a 41 year old F who was recently admitted a few days ago for increasing abdominal pain and swelling. It was thought she had an early or partial bowel obstruction which has resolved. Patient has been having bowel movements and has less abdominal pain and distention. While her obstruction was being treated, it was noted the patient has recurrent extensive complicated pilonidal cyst ulcers that were excised in the past about 4 years ago. She states there has been increasing drainage and discomfort in this area. She is currently on Zosyn. A CT Abdomen and Pelvis was obtained at admission which showed an early or partial bowel obstruction. No deep abscesses noted. I was asked to evaluate this patient for surgical options for treatment. Today the patient underwent surgical preparation sacral and left gluteal area with excision recurrent extensive complicated pilonidal cyst ulcers with left gluteal extension and necrotizing anal sphincter muscle involvement (152 cm2). Size of defect sacral area with left gluteal extension and necrotizing anal sphincter involvement - 19 x 8 x 5 cm. A lot of fat necrosis with drainage was present. A lot of milky drainage was seen suggestive of early pus formation. Some nonviable necrotizing anal sphincter muscle was seen and debrided. Estimated Blood Loss: 250 ml. Specimen's removed: Recurrent extensive complicated pilonidal cyst ulcers with left gluteal extension and anal sphincter involvement to Pathology and Microbiology. Drains: None. Type of Anesthesia:: Spinal - Admit VTE Documentation VTE Present on Admission: No VTE Mechan Device Prophylaxis: SCD's VTE Pharm Prophylaxis ordered?: Yes
--- NOTE | 2017-08-15 13:36 | PN_ITS ---
<Fiorella Gan - Last Filed: 08/15/17 13:36> Patient Problems: Active and Suspected Problems ? Early small bowel obstruction (Acute) Possible Infectious Colitis (Acute) Abdominal pain (Acute) Inflammation of small intestine (Acute) Subjective: Patient seen and examined. Recently returned from PACU after undergoing wound excision with Dr. Munroe. She denies pain currently. Denies chest pain, shortness of breath. States she is hungry. Denies other complaints. - Physical Exam General: Alert, Oriented x3, Cooperative, No apparent distress HEENT: Atraumatic, PERRLA, EOMI, Normocephalic Neck: Supple, No JVD, Negative Carotid Bruits Lungs: Clear to auscultation, Diminished Cardiovascular: Regular rate, Regular Rhythm, Normal S1, Normal S2, No murmurs Abdomen: Bowel Sounds Present, Soft, Non Tender, Non-Distended, Obese Extremities: No clubbing, No cyanosis, No edema, Capillary Refill Less than 3 Seconds Skin: No rashes, No breakdown, - - Wound postop dressing intact with small amount of red drainage noted. Musculoskeletal: No Tenderness to Palpation of Joints or Extremities Neurological: Cranial nerves II-XII grossly intact, Neuro grossly intact Psych/Mental Status: Normal Affect, Appropriate Vital Signs Temp Pulse Resp BP Pulse Ox 97.0 F L 62 18 139/75 H 100 08/15/17 13:06 08/15/17 13:06 08/15/17 13:06 08/15/17 13:06 08/15/17 13:06 Oxygen Flow Rate 2 Oxygen Delivery Method Nasal Cannula Weight: 95.2 kg Body Mass Index (BMI) 32.7 Intake and Output for Last 24 Hours 08/13/17 08/14/17 08/15/17 23:59 23:59 23:59 Intake Total 1748 / 1748 2180 / 2180 1750 / 1750 Output Total 500 / 500 4200 / 4200 150 / 150 Balance 1248 / 1248 -2019 / 1600 / 1600 Microbiology Past 72 Hours 08/15/17 11:19 Gram Stain - Final Tissue - Pilondial 08/12/17 08:30 Gram Stain - Final Wound - Buttock Wound Culture - Final Streptococcus group G Gram positive carissa Laboratory Tests Past 24 Hrs 08/14/17 08/15/17 08/15/17 14:25 05:24 05:24 WBC 5.5 RBC 3.08 L Hgb 9.5 L Hct 29.1 L MCV 94.5 MCH 30.8 MCHC 32.6 RDW 17.2 H RDW Differential 58.9 H Plt Count 123 L MPV 8.5 PT INR APTT Sodium 134 L Potassium 3.2 L Chloride 94 L Carbon Dioxide 31.0 Anion Gap 9 BUN 22 H Creatinine 4.53 H Estim Creat Clear Calc 14.99 Est GFR (MDRD) Af Amer 14 L Est GFR (MDRD) Non-Af 11 L BUN/Creatinine Ratio 4.9 L Glucose 137 H Calcium 8.0 L Prealbumin 18.0 L Blood Type A NEGATIVE Antibody Screen POSITIVE H Antibody Identification ANTI-D Direct Antiglob Test NEG w/POLYSPECIFIC Crossmatch See Detail 08/15/17 05:24 WBC RBC Hgb Hct MCV MCH MCHC RDW RDW Differential Plt Count MPV PT 15.3 H INR 1.3 APTT 37.1 H Sodium Potassium Chloride Carbon Dioxide Anion Gap BUN Creatinine Estim Creat Clear Calc Est GFR (MDRD) Af Amer Est GFR (MDRD) Non-Af BUN/Creatinine Ratio Glucose Calcium Prealbumin Blood Type Antibody Screen Antibody Identification Direct Antiglob Test Crossmatch POC Glucose 08/15/17 08/15/17 08/14/17 08:23 06:12 21:44 POC Glucose 153 H 144 H 204 H 08/14/17 16:31 POC Glucose 93 Assessment/Plan Active and Suspected Problems ? Early small bowel obstruction (Acute) Possible Infectious Colitis (Acute) Abdominal pain (Acute) Inflammation of small intestine (Acute) Patient is a 41-year-old female admitted 08/12/2017 due to abdominal pain. She has a past medical history of end-stage renal disease, type 2 diabetes mellitus , hypertension, hyperlipidemia, tobacco abuse, obesity, chronic systolic CHF, CAD. 1. Suspected infectious colitis vs gastroenteritis-resolved. Possible small bowel obstruction ruled out. Abdominal pain, nausea improved. Denies fever. Initial CT of abdomen pelvis showed possible acute inflammation of the proximal small bowel and early or partial small bowel obstruction. Repeat KUB 08/13/2017 showed unremarkable bowel gas pattern, no obvious mass or dilated bowel. No small bowel obstruction noted. Dr. Zhang consulted. Patient tolerating diet. Can switch to oral PPI. Zofran as needed for nausea. White count normal. Afebrile. 2. Recurrent complicated pilonidal cyst ulcers with left gluteal extension and necrotizing anal sphincter muscle involvement-patient underwent excision of cystic ulcers today with Dr. Munroe. Wound was found to be extensive with fat necrosis and large amount of milky drainage. Patient may require a diverting colostomy. She will need SNF at discharge. Wound RN consulted for dressing changes during admission. Wound culture showing beta Streptococcus and gram- positive rods. Continue IV Zosyn and vancomycin. Tissue was sent from excision today for further cultures. 3. End-stage renal failure-on hemodialysis. Nephrology consulted. Continue current hemodialysis regimen. 4. Chronic diastolic CHF-no acute exacerbation. Previous echocardiogram 2014 showed an estimated ejection fraction of 65%, moderate left ventricular hypertrophy. This was improved from echo in 2012 in which her LV function was 40%. 5. CAD-continue aspirin, beta-lewis. Previous cath in 2012 showed mild LAD disease. 6. Hyperlipidemia-not on statin. Recent lipid panel in June 2017 WNL. 7. Type 2 diabetes mellitus-with associated neuropathy and gastroparesis. Continue home long-acting insulin regimen. Accu-Cheks before meals at bedtime with sliding scale insulin. 8. Depression/anxiety-continue home benzo regimen. Patient was on Prozac in the past. Recommend tapering benzodiazepine and placing back on SSRI in the future. 9. Tobacco abuse-encourage smoking cessation. 10. Obesity-encouraged lifestyle and dietary modifications. 11. Anemia of chronic disease/iron deficiency anemia-stable, monitor CBC. Patient received IV iron yesterday with dialysis. Discharge planning-patient will require daily home health services or SNF at discharge due to wound care. DVT prophylaxis-heparin subcu. This patient was seen by SATNAM Mcgraw under the supervision of Dr. Roman. <Roberto Roman - Last Filed: 08/15/17 15:24> - Physical Exam General: Cooperative, No apparent distress, - - Slightly greater groggy but overall coherent. HEENT: Atraumatic, Normocephalic Lungs: Clear to auscultation, Normal air movement, No rhonchi, No wheeze Cardiovascular: Regular rate, Regular Rhythm, Normal S1, Normal S2, No murmurs Abdomen: Bowel Sounds Present, Soft, Non Tender, Non-Distended Extremities: No edema, No Calf Tenderness Skin: No rashes, No breakdown Psych/Mental Status: Normal Affect, Appropriate Vital Signs Temp Pulse Resp BP Pulse Ox 36.3 C L 64 18 137/64 H 100 08/15/17 14:57 08/15/17 14:57 08/15/17 14:57 08/15/17 14:57 08/15/17 14:57 Oxygen Flow Rate 2 Oxygen Delivery Method Nasal Cannula Weight: 95.2 kg Body Mass Index (BMI) 32.7 Intake and Output for Last 24 Hours 08/13/17 08/14/17 08/15/17 23:59 23:59 23:59 Intake Total 1748 / 1748 2180 / 2180 1750 / 1750 Output Total 500 / 500 4200 / 4200 150 / 150 Balance 1248 / 1248 -2019 / -2019 1600 / 1600 Microbiology Past 72 Hours 08/15/17 11:19 Gram Stain - Final Tissue - Pilondial 08/12/17 08:30 Gram Stain - Final Wound - Buttock Wound Culture - Final Streptococcus group G Gram positive carissa Laboratory Tests Past 24 Hrs 08/14/17 08/15/17 08/15/17 14:25 05:24 05:24 WBC 5.5 RBC 3.08 L Hgb 9.5 L Hct 29.1 L MCV 94.5 MCH 30.8 MCHC 32.6 RDW 17.2 H RDW Differential 58.9 H Plt Count 123 L MPV 8.5 PT INR APTT Sodium 134 L Potassium 3.2 L Chloride 94 L Carbon Dioxide 31.0 Anion Gap 9 BUN 22 H Creatinine 4.53 H Estim Creat Clear Calc 14.99 Est GFR (MDRD) Af Amer 14 L Est GFR (MDRD) Non-Af 11 L BUN/Creatinine Ratio 4.9 L Glucose 137 H Calcium 8.0 L Prealbumin 18.0 L Blood Type A NEGATIVE Antibody Screen POSITIVE H Antibody Identification ANTI-D Direct Antiglob Test NEG w/POLYSPECIFIC Crossmatch See Detail 08/15/17 05:24 WBC RBC Hgb Hct MCV MCH MCHC RDW RDW Differential Plt Count MPV PT 15.3 H INR 1.3 APTT 37.1 H Sodium Potassium Chloride Carbon Dioxide Anion Gap BUN Creatinine Estim Creat Clear Calc Est GFR (MDRD) Af Amer Est GFR (MDRD) Non-Af BUN/Creatinine Ratio Glucose Calcium Prealbumin Blood Type Antibody Screen Antibody Identification Direct Antiglob Test Crossmatch POC Glucose 08/15/17 08/15/17 08/15/17 13:45 08:23 06:12 POC Glucose 152 H 153 H 144 H 08/14/17 08/14/17 21:44 16:31 POC Glucose 204 H 93 Assessment/Plan Patient seen and examined independently. Agree with the above note by the nurse practitioner. 1. Pilonidal cyst: Discussed with Dr. Munroe. States that it was very extensive and almost to the point of involving the anal sphincter. He has recommended surgery to perform a diverting colostomy while this wound heals. He is also recommended that patient go to a facility afterwards for more proper wound care. Discussed with case management who states that the patient would not qualify for [facility] his vision was never in the ICU. So we will look into detention facilities at some point colostomy is performed. Continue with antibiotics. Will request infectious disease consult in regards to lengthen course of antibiotics. 2. Small bowel obstruction: Resolved. 3. End-stage renal disease on hemodialysis. Code Visit Inpatient E&M: 16092 Subs Hosp L2
[2017-08-15 13:51] LABS: Bedside Glucose 152 mg/dL (70-110)
[2017-08-15] MEDS: Calcium Acetate 667 MG Capsule PO ×2 (14:06→17:12)
[2017-08-15] MEDS: 0.9% NaCl Peripheral Flush Adult/Peds IV ×2 (14:06→23:08)
[2017-08-15] MEDS: diazePAM 5 MG Tablet PO (14:06)
[2017-08-15] MEDS: Nepro Liquid 120 ML LIQUID PO ×3 (14:08→21:44)
--- NOTE | 2017-08-15 16:10 | CASEMGMT ---
Social Work Note Referral from RN WINSOME Herrmann - that pt will need placement. Review option of LTAC and because pt is not being billed at a 200 level code Medicare will not cover LTAC, and Medicare is primary so they cannot accept her on Medicaid. Face to face with pt who is very drowsy. Oriented x3, but not very alert. Introduced self and role at [facility]. Explain that pt may need placement which she agrees. Provide with list of facilities for pt to review with family and inform that SW will check back in the morning with her options. Pt verbally expresses understanding. SW to continue to follow and assist with discharge planning. Plan: SNF pending acceptance. SNEHA SouzaW
[2017-08-15] MEDS: HYDROmorphone 2 MG TABLET PO ×2 (16:55→21:43)
[2017-08-15] MEDS: Lactated Ringers 1,000 ML 15 ML IV (17:06)
[2017-08-15 18:11] LABS: Bedside Glucose 199 mg/dL (70-110)
--- NOTE | 2017-08-15 20:38 | PCM.OPRPT ---
Report of Operation Date of Procedure: 08/15/17 Pre-Operative Diagnosis: 1. Recurrent extensive complicated pilonidal cyst ulcers. 2. ESRD on dialysis. 3. Diabetes mellitus. 4. Anemia of chronic disease. 5. Smoker. Post-Operative Diagnosis: 1. 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 2. ESRD on dialysis. 3. Diabetes mellitus. 4. Anemia of chronic disease. 5. Smoker. Surgery/Procedure Performed:: Surgical preparation sacral and left gluteal area with excision recurrent extensive complicated pilonidal cyst ulcers with left gluteal extension and necrotizing anal sphincter muscle involvement (152 cm2). Description of Surgical Findings:: The patient is a 41 year old F who was recently admitted a few days ago for increasing abdominal pain and swelling. It was thought she had an early or partial bowel obstruction which has resolved. Patient has been having bowel movements and has less abdominal pain and distention. While her obstruction was being treated, it was noted the patient has recurrent extensive complicated pilonidal cyst ulcers that were excised in the past about 4 years ago. She states there has been increasing drainage and discomfort in this area. She is currently on Zosyn. A CT Abdomen and Pelvis was obtained at admission which showed an early or partial bowel obstruction. No deep abscesses noted. Encouraged the patient to stop smoking as it may have deleterious effects on wound healing. Patient was informed of the risks and complications of the procedure including alternatives to surgery. These were discussed with her personally. She voices understanding and wishes to proceed. She understands that after surgery, the wound would be left open and wound care instituted. Size of defect sacral area with left gluteal extension and necrotizing anal sphincter muscle involvement - 19 x 8 x 5 cm. A lot of fat necrosis with drainage was present. A lot of milky drainage was seen suggestive of early pus formation. Some nonviable necrotizing anal sphincter muscle was seen and debrided. weather forecaster: None Type of Anesthesia:: Spinal Specimen's removed: Recurrent extensive complicated pilonidal cyst ulcers with left gluteal extension and anal sphincter involvement to Pathology and Microbiology. Drains: None. Estimated Blood Loss (mL): 250 ml. Description of Procedure: Patient was taken to the OR in supine position. She was given a spinal anesthetic by Anesthesia. She was then placed in the prone position. Her sacral and gluteal areas were prepped and draped in the usual fashion. Using skin prep and tape, I placed the gluteal skin on stretch to get better exposure of the extent of the infection. There was a lot of left gluteal extension. SCD's were placed for DVT prophylaxis. Perioperative antibiotics were given intravenously. Using xylocaine with epinephrine, I infiltrated the recurrent extensive complicated pilonidal cyst ulcers with left gluteal extension. After waiting for 5 minutes for the anesthetic to take effect, I used an scalpel and sharply excised the recurrent extensive complicated pilonidal cyst ulcers down through the subcutaneous tissue until the coccyx and sacrum were palpable. A thin layer of soft tissue was still present over the bone. No bone was exposed, but will discuss with the patient that in the future during the healing process, she will be at risk for bone infection. A lot of fat necrosis with drainage was present. A lot of milky drainage was seen suggestive of early pus formation. Further excision was done down the left gluteal area because of persistent infection in this area. The infection extended to the anal musculature with some nonviable necrotizing anal sphincter muscle seen and debrided. The remaining anal musculature appeared viable and was preserved. Hemostasis was obtained with electrocautery. The wound was copiously irrigated with saline. Some of the soft tissue was sent to Microbiology for culture. A positive culture may necessitate antibiotic modification. The rest of the soft tissue was sent to Pathology for analysis to rule out carcinoma. The size of the defect involving the sacral area with left gluteal extension and anal sphincter muscle involvement was 19 x 8 x 5 cm. The large wound was dressed with Mepitel nonadherent dressing followed by Kerlix gauze and Betadine followed by dry Kerlix gauze and ABD pads and secured with Medipore tape and fish net panties. The patient tolerated the procedure well and will be sent to PACU in satisfactory condition. She will be sent back upstairs for continue postop care. Because of the involvement of the anal musculature, the patient is at increased risk for wound healing problems with stool contamination. She needs a diverting colostomy to divert the stool and help the healing process. I discussed my findings with Dr. Zhang who will evaluate the patient for a diverting colostomy. She will continue her dialysis three days per week on , , and . Will continue Betadine dressing changes daily. After the diverting colostomy, a VAC may be able to be placed. Will discuss with the patient and family that with the complexity of her care, I think she should be evaluated for an ECF for a short while until the wound has stabilized, the diverting colostomy has healed, and until the IV antibiotics have been completed. Grafts/Implants Used: None. - Complications None. - Admit VTE Documentation VTE Present on Admission: No VTE Mechan Device Prophylaxis: SCD's VTE Pharm Prophylaxis ordered?: Yes Code Visit Surgery Charges CPT - 92120 ICD-10 - L05.01, M72.6, N18.6, E10.622, D63.8, F17.200
[2017-08-15] MEDS: Carvedilol 25 MG Tablet PO (21:45)
[2017-08-15 22:15] LABS: Bedside Glucose 195 mg/dL (70-110)
[2017-08-16] VITALS (7 sets, daily range): BP systolic 108–130; BP diastolic 53–75; PULSE 68–74; RESP 16–18; TEMP 36.6–36.9; O2SAT 94–98
[2017-08-16] MEDS: Acetaminophen 325 MG Tablet 650 MG PO (00:57)
[2017-08-16] MEDS: diazePAM 5 MG Tablet PO ×2 (00:58→13:48)
[2017-08-16] MEDS: HYDROmorphone 2 MG TABLET PO ×3 (04:10→22:45)
[2017-08-16 07:36] LABS: Bedside Glucose 159 mg/dL (70-110)
[2017-08-16 08:05] LABS: Hematocrit 26.5 % (37-47); Hemoglobin 8.4 g/dl (12.0-15.0); Mean Corp Hgb Conc 31.7 g/gl (32-36); Mean Corpuscular Hgb 30.9 pg (27.0-32.0); Mean Corpuscular Volume 97.4 fL (81-99); Mean Platelet Vol. 9.1 fl (6.2-12.0); Platelet Count 99 K/mm3 (150-450); RBC Distribution Width CV 16.9 % (11.6-14.6); RBC Distribution Width SD 60.2 fl (35.1-43.9); Red Blood Count 2.72 M/mm3 (4.2-5.4); White Blood Count 4.7 K/mm3 (4.4-11.0)
[2017-08-16 08:17] LABS: Scan Indicated on CBC? Y/N NO
[2017-08-16 08:24] LABS: Erythrocyte Sedimentation Rate 3 mm/hr (0-20); Vancomycin, Random Level 24.1 ug/mL (0.0-15.0)
[2017-08-16 08:33] LABS: Anion Gap 12 (5-15); BUN 33 mg/dL (7-18); BUN/Creat Ratio 5.6 RATIO (10-20); Calcium,Total 7.5 mg/dL (8.5-10.1); Chloride 103 mmol/L (98-107); Creatinine, Serum 5.91 mg/dL (0.55-1.02); EST Glomerular Filtration Rate 8 mL/min (>60); Est Glom Filt Rate - Afr Amer 10 mL/min (>60); Estimated Creatinine Clearance 11.49 ml/min; Glucose 154 mg/dL (70-110); Potassium 4.8 mmol/L (3.5-5.1); Sodium Level 138 mmol/L (136-145)
--- NOTE | 2017-08-16 08:40 | CASEMGMT ---
Addendum entered by Fiorella Martinez 08/16/17 10:55: Social Work Note Call from Suad at [facility] stating that they can accept the pt once medically stable. States the pt would need to be switched to PO Ativan prior to discharging to them. States they will setup transportation to and from dialysis appointments and can maintain her M, W, F schedule at [facility] in [place]. Pt updated, and SW to continue to follow and assist with discharge planning. Plan: [facility] once medically stable. SNEHA Souza Original Note: Social Work Note Face to face with the pt to discuss discharge plan. Introduced self and role at [facility]. The pt reports that she was able to review the list and her first choice is [facility] and second is [facility]. Inform pt that [facility] does have in house dialysis, but SW's understanding is she would get dialysis 5 days/week not 3, but the duration would be shorter. Understanding expressed and pt reports that this would still be her first choice. Initial referral faxed. SW to continue to follow and assist with discharge planning. Plan: SNF pending acceptance. SNEHA Souza
[2017-08-16] MEDS: Piperacil/Tazobactam 3.375 GM/50 ML ML IV ×2 (09:05→22:46)
[2017-08-16] MEDS: Lisinopril 20 MG Tablet PO (09:05)
[2017-08-16] MEDS: Sodium Bicarbonate 650 MG Tablet PO (09:05)
[2017-08-16] MEDS: dilTIAZem CD 240 MG Capsule PO (09:05)
[2017-08-16] MEDS: Carvedilol 25 MG Tablet PO ×2 (09:05→22:38)
[2017-08-16] MEDS: Aspirin 81 MG TAB.CHEW PO (09:06)
[2017-08-16] MEDS: Calcium Acetate 667 MG Capsule PO ×3 (09:06→20:05)
[2017-08-16] MEDS: Nepro Liquid 120 ML LIQUID PO ×2 (09:20→13:48)
[2017-08-16] MEDS: Pantoprazole Sodium 40 MG Tablet PO (09:45)
--- NOTE | 2017-08-16 10:09 | CON.PCM_ITS ---
Problem List (1) Abdominal pain Status: Acute Reason for Consult: necrotizing abd infection Consulted by: Dr. Roman History of Present Illness: The patient is a 41 year old F with T2DM and ESRD presented 08/12 with several weeks of blood and pus draining from around rectum. Had acute onset of several days of abd pain, couldn't take it anymore, so came to ED. Had some chills, n/ v as well. No recent abx. CT showed small bowel inflammation, started on vanc/ zosyn. Surgery consulted, and taken to OR 08/15 for debridement of necrotizing infection extending to anal sphincter. Pain controlled currently. Full ROS performed and neg except as noted above. - Medical History Past Medical History (Chronic Problems): Chronic Problems Anemia, chronic disease (Chronic) Smoker (Chronic) GABRIEL (obstructive sleep apnea) (Chronic) ESRD on dialysis (Chronic) Depression (Chronic) Anxiety (Chronic) HTN (hypertension) (Chronic) Nonischemic cardiomyopathy (Chronic) With ejection fraction 45 - 50%; with angiographically normal coronary arteries 05/2013; follows up with Dr. Magdaleno S/P repair of PDA (patent ductus arteriosus) (Chronic) At young age Diabetes mellitus type 1 (Chronic) Hyperlipidemia (Chronic) Obesity (Chronic) Systolic congestive heart failure (Chronic) EF 40% Left ventricular diastolic dysfunction, NYHA class 2 (Chronic) Tobacco abuse (Chronic) Iron deficiency anemia due to chronic blood loss (Chronic) Dysmenorrhea history, s/p hysterectomy. Obesity (BMI 30.0-34.9) (Chronic) Gastroparesis (Chronic) Allergies/Adverse Reactions: Allergies latex Allergy (Verified 08/12/17 02:03) Rash levofloxacin [From Levaquin] Adverse Reaction (Verified 08/12/17 02:03) PT CAN'T REMEMBER PT CAN'T REMEMBER metoclopramide HCl [From Reglan] Adverse Reaction (Verified 08/12/17 02:03) Nausea NSAIDS (Non-Steroidal Anti-Inflamma Adverse Reaction (Verified 08/12/17 02:03) kidney function oxycodone HCl [From Percocet] Adverse Reaction (Verified 08/12/17 02:03) HALLUCINATIONS Home Medications: Ambulatory Orders Medication Instructions Recorded Diltiazem HCl [Tiazac] 240 mg PO DAILY 07/10/15 Aspirin [Aspirin, Baby] 81 mg PO DAILY@0800 01/26/16 Calcium Acetate [Phoslo Gel Cap] 667 mg PO TIDCM 01/26/16 Ergocalciferol [Vitamin D] 50,000 unit PO FR 01/26/16 Insulin Aspart [Novolog Flexpen] 8 units SC TIDCM 01/26/16 Insulin Glargine,Hum.rec.anlog 5 unit SQ QHS 01/09/17 [Lantus] ProMETHAzine [Phenergan] 25 mg PO Q6H PRN PRN #10 tablet 03/06/17 Lidocaine/Prilocaine 1 unit TOPICAL PRN PRN 03/29/17 [Lidocaine-Prilocaine Cream] Lisinopril 20 mg PO DAILY 03/29/17 Omeprazole Magnesium [Prilosec Otc] 20 mg PO DAILY 03/29/17 Sodium Bicarbonate 650 mg PO MOWEFR 03/29/17 Acetaminophen [Tylenol Tablet] 650 mg PO Q6H PRN PRN tablet 03/31/17 Carvedilol [Coreg (Beta Chang)] 25 mg PO BID 06/17/17 Ondansetron [Zofran Odt] 4 mg PO Q8H PRN PRN #10 tablet 08/06/17 ALPRAZolam [Xanax] 0.5 mg PO PRN PRN 08/12/17 - Social History SMOKING STATUS:: Former smoker Vital Signs Temp Pulse Resp BP Pulse Ox 97.9 F 74 18 130/65 H 98 08/16/17 09:26 08/16/17 09:54 08/16/17 09:54 08/16/17 09:26 08/16/17 09:26 Oxygen Flow Rate 4 Oxygen Delivery Method Nasal Cannula Weight: 95.481 kg Body Mass Index (BMI) 32.7 Microbiology Past 72 Hours 08/15/17 11:19 Gram Stain - Final Tissue - Pilondial 08/12/17 08:30 Gram Stain - Final Wound - Buttock Wound Culture - Final Streptococcus group G Gram positive carissa Laboratory Tests Past 24 Hrs 08/16/17 08/16/17 08/16/17 07:26 07:26 07:26 WBC 4.7 RBC 2.72 L Hgb 8.4 L Hct 26.5 L MCV 97.4 MCH 30.9 MCHC 31.7 L RDW 16.9 H RDW Differential 60.2 H Plt Count 99 L MPV 9.1 ESR 3 Sodium 138 Potassium 4.8 Chloride 103 Carbon Dioxide 23.0 Anion Gap 12 BUN 33 H Creatinine 5.91 H Estim Creat Clear Calc 11.49 Est GFR (MDRD) Af Amer 10 L Est GFR (MDRD) Non-Af 8 L BUN/Creatinine Ratio 5.6 L Glucose 154 H Calcium 7.5 L C-React Prot Ext Range 46.20 H Random Vancomycin 24.1 H - Other Studies Radiology: [] reviewed Other Studies: [] Route of nutrition/ use of supplements: [] Nutritional Intake: [] IV Site: [] Meyer Catheter: [] - Physical Exam General: Alert, Oriented x3, Cooperative, No apparent distress HEENT: Atraumatic, PERRLA, EOMI Neck: Supple, No Nodes Lungs: Clear to auscultation, Normal air movement Cardiovascular: Regular rate, Regular Rhythm, No murmurs Abdomen: Soft, Non Tender, Non-Distended Extremities: Edema Skin: No rashes, - - surg dressing in place IV Site: Peripheral Musculoskeletal: No Tenderness to Palpation of Joints or Extremities Neurological: Cranial nerves II-XII grossly intact - Assessment/Plan Antibiotics: [] Assessment/Plan: [] Active and Suspected Problems ? Early small bowel obstruction (Acute) Possible Infectious Colitis (Acute) Abdominal pain (Acute) Inflammation of small intestine (Acute) Necrotizing buttock infection related to pilonidal cysts, extending to anal sphincter - add clinda for anti-toxin effect. Cont vanc and zosyn while surg cxs are pending. ESRD Thank you, will follow.
--- NOTE | 2017-08-16 10:52 | PCM.PROGNOTE ---
<Fiorella Gan - Last Filed: 08/16/17 11:07> Patient Problems: Active and Suspected Problems ? Early small bowel obstruction (Acute) Possible Infectious Colitis (Acute) Abdominal pain (Acute) Inflammation of small intestine (Acute) Subjective: Patient seen and examined. Complains of significant pain from gluteal wound debridement. Denies nausea, abdominal pain. Denies fever, chills. Denies other complaints. Discussed with patient possible plans for diverting colostomy and SNF at discharge in which she states she is already aware and agreeable. - Physical Exam General: Alert, Oriented x3, Cooperative, No apparent distress HEENT: Atraumatic, PERRLA, EOMI, Normocephalic Neck: Supple, No JVD, Negative Carotid Bruits Lungs: Clear to auscultation, Diminished Cardiovascular: Regular rate, Regular Rhythm, Normal S1, Normal S2, No murmurs Abdomen: Bowel Sounds Present, Soft, Non Tender, Non-Distended, Obese Extremities: No clubbing, No cyanosis, No edema, Capillary Refill Less than 3 Seconds Skin: No rashes, No breakdown, - - Wound postop dressing intact with small amount of red drainage noted. Musculoskeletal: No Tenderness to Palpation of Joints or Extremities Neurological: Cranial nerves II-XII grossly intact Psych/Mental Status: Normal Affect, Appropriate Vital Signs Temp Pulse Resp BP Pulse Ox 97.9 F 74 18 130/65 H 98 08/16/17 09:26 08/16/17 09:54 08/16/17 09:54 08/16/17 09:26 08/16/17 09:26 Oxygen Flow Rate 4 Oxygen Delivery Method Nasal Cannula Weight: 95.481 kg Body Mass Index (BMI) 32.7 Intake and Output for Last 24 Hours 08/14/17 08/15/17 08/16/17 23:59 23:59 23:59 Intake Total 2180 / 2180 2450 / 2450 1202 / 1202 Output Total 4200 / 4200 150 / 150 400 / 400 Balance -2019 / -2019 2300 / 2300 802 / 802 Microbiology Past 72 Hours 08/15/17 11:19 Gram Stain - Final Tissue - Pilondial 08/12/17 08:30 Gram Stain - Final Wound - Buttock Wound Culture - Final Streptococcus group G Gram positive carissa Laboratory Tests Past 24 Hrs 08/16/17 08/16/1718 07:26 07:26 07:26 WBC 4.7 RBC 2.72 L Hgb 8.4 L Hct 26.5 L MCV 97.4 MCH 30.9 MCHC 31.7 L RDW 16.9 H RDW Differential 60.2 H Plt Count 99 L MPV 9.1 ESR 3 Sodium 138 Potassium 4.8 Chloride 103 Carbon Dioxide 23.0 Anion Gap 12 BUN 33 H Creatinine 5.91 H Estim Creat Clear Calc 11.49 Est GFR (MDRD) Af Amer 10 L Est GFR (MDRD) Non-Af 8 L BUN/Creatinine Ratio 5.6 L Glucose 154 H Calcium 7.5 L C-React Prot Ext Range 46.20 H Random Vancomycin 24.1 H POC Glucose 08/16/17 08/15/17 08/15/17 07:27 21:41 17:05 POC Glucose 159 H 195 H 199 H 08/15/17 13:45 POC Glucose 152 H Assessment/Plan Active and Suspected Problems ? Early small bowel obstruction (Acute) Possible Infectious Colitis (Acute) Abdominal pain (Acute) Inflammation of small intestine (Acute) Patient is a 41-year-old female admitted 08/12/2017 due to abdominal pain. She has a past medical history of end-stage renal disease, type 2 diabetes mellitus, hypertension, hyperlipidemia, tobacco abuse, obesity, chronic systolic CHF, CAD. 1. Suspected infectious colitis vs gastroenteritis-resolved. Possible small bowel obstruction ruled out. Abdominal pain, nausea resolved. Denies fever. Initial CT of abdomen pelvis showed possible acute inflammation of the proximal small bowel and early or partial small bowel obstruction. Repeat KUB 08/13/2017 showed unremarkable bowel gas pattern, no obvious mass or dilated bowel. No small bowel obstruction noted. Dr. Zhang consulted. Patient tolerating diet. Can switch to oral PPI. Zofran as needed for nausea. White count normal. Afebrile. 2. 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 Munroe. Wound was found to be extensive with fat necrosis and large amount of milky drainage. Patient may require a diverting colostomy. Surgery already on consult. She will need SNF at discharge. Wound RN consulted for dressing changes during admission. Wound culture showing beta Streptococcus and gram-positive rods. Continue IV Zosyn and vancomycin. Tissue was sent from excision for further cultures, pending. 3. End-stage renal failure-on hemodialysis. Nephrology consulted. Continue current hemodialysis regimen. 4. Chronic diastolic CHF-no acute exacerbation. Previous echocardiogram 07/14/2015 showed an estimated ejection fraction of 65%, moderate left ventricular hypertrophy. This was improved from echo in 2012 in which her LV function was 40%. 5. CAD-continue aspirin, beta-lewis. Previous cath in 2012 showed mild LAD disease. 6. Hyperlipidemia-not on statin. Recent lipid panel in June 2017 WNL. 7. Type 2 diabetes mellitus-with associated neuropathy and gastroparesis. Continue home long-acting insulin regimen. Accu-Cheks before meals at bedtime with sliding scale insulin. 8. Depression/anxiety-continue home benzo regimen. Patient was on Prozac in the past. Recommend tapering benzodiazepine and placing back on SSRI in the future. 9. Tobacco abuse-encourage smoking cessation. 10. Obesity-encouraged lifestyle and dietary modifications. 11. Anemia of chronic disease/iron deficiency anemia-stable, monitor CBC. Patient received IV iron yesterday with dialysis. Discharge planning-plan for SNF at discharge, SW involved. DVT prophylaxis-heparin subcu. This patient was seen by SATNAM Mcgraw under the supervision of Dr. Roman. <Roberto Roman - Last Filed: 08/16/17 16:27> - Physical Exam General: Alert, Cooperative, No apparent distress HEENT: Atraumatic, Normocephalic Lungs: Clear to auscultation, Normal air movement, No rhonchi, No wheeze Cardiovascular: Regular rate, Regular Rhythm, Normal S1, Normal S2, No murmurs Abdomen: Bowel Sounds Present, Soft, Non Tender, Non-Distended, Obese Extremities: No edema, No Calf Tenderness Skin: No rashes, No breakdown, - Psych/Mental Status: Normal Affect, Appropriate Vital Signs Temp Pulse Resp BP Pulse Ox 36.9 C 68 18 108/57 L 98 08/16/17 13:55 08/16/17 13:55 08/16/17 13:55 08/16/17 13:55 08/16/17 13:55 Oxygen Flow Rate 4 Oxygen Delivery Method Nasal Cannula Weight: 95.481 kg Body Mass Index (BMI) 32.7 Intake and Output for Last 24 Hours 08/14/17 08/15/17 08/16/17 23:59 23:59 23:59 Intake Total 2180 / 2180 2450 / 2450 1602 / 1602 Output Total 4200 / 4200 150 / 150 5300 / 5300 Balance -2020 / -2020 2300 / 2300 -3698 / -3698 Microbiology Past 72 Hours 08/15/17 11:19 Gram Stain - Final Tissue - Pilondial 08/12/17 08:30 Gram Stain - Final Wound - Buttock Wound Culture - Final Streptococcus group G Gram positive carissa Laboratory Tests Past 24 Hrs 08/16/17 08/16/17 08/16/17 07:26 07:26 07:26 WBC 4.7 RBC 2.72 L Hgb 8.4 L Hct 26.5 L MCV 97.4 MCH 30.9 MCHC 31.7 L RDW 16.9 H RDW Differential 60.2 H Plt Count 99 L MPV 9.1 ESR 3 Sodium 138 Potassium 4.8 Chloride 103 Carbon Dioxide 23.0 Anion Gap 12 BUN 33 H Creatinine 5.91 H Estim Creat Clear Calc 11.49 Est GFR (MDRD) Af Amer 10 L Est GFR (MDRD) Non-Af 8 L BUN/Creatinine Ratio 5.6 L Glucose 154 H Calcium 7.5 L C-React Prot Ext Range 46.20 H Random Vancomycin 24.1 H POC Glucose 08/16/17 08/16/17 08/15/17 11:11 07:27 21:41 POC Glucose 200 H 159 H 195 H 08/15/17 17:05 POC Glucose 199 H Assessment/Plan Patient seen and examined independently. Agree with the above note by the nurse practitioner. 1. Pilonidal cyst: Discussed with Dr. Munroe. States that it was very extensive and almost to the point of involving the anal sphincter. He has recommended surgery to perform a diverting colostomy while this wound heals. He is also recommended that patient go to a facility afterwards for more proper wound care. Discussed with case management who states that the patient would not qualify for [facility] his vision was never in the ICU. So we will look into halfway facilities at some point colostomy is performed. Continue with antibiotics. Will request infectious disease consult in regards to lengthen course of antibiotics. 2. Small bowel obstruction: Resolved. 3. End-stage renal disease on hemodialysis. Code Visit Inpatient E&M: 98305 Subs Hosp L2
[2017-08-16 11:21] LABS: Bedside Glucose 200 mg/dL (70-110)
--- NOTE | 2017-08-16 12:38 | PCM.PN.REN ---
Patient Problems: Active and Suspected Problems ? Early small bowel obstruction (Acute) Possible Infectious Colitis (Acute) Abdominal pain (Acute) Inflammation of small intestine (Acute) Subjective: events noted - Physical Exam Vital Signs Temp Pulse Resp BP Pulse Ox 97.9 F 74 18 130/65 H 98 08/16/17 09:26 08/16/17 09:54 08/16/17 09:54 08/16/17 09:26 08/16/17 09:26 Oxygen Flow Rate 4 Oxygen Delivery Method Nasal Cannula Weight: 95.481 kg Body Mass Index (BMI) 32.7 Intake and Output for Last 24 Hours 08/14/17 08/15/17 08/16/17 23:59 23:59 23:59 Intake Total 2180 / 2180 2450 / 2450 1602 / 1602 Output Total 4200 / 4200 150 / 150 5300 / 5300 Balance -2020 / -2020 2300 / 2300 -3698 / -3698 Microbiology Past 72 Hours 08/15/17 11:19 Gram Stain - Final Tissue - Pilondial 08/12/17 08:30 Gram Stain - Final Wound - Buttock Wound Culture - Final Streptococcus group G Gram positive carissa Laboratory Tests Past 24 Hrs 08/16/17 08/16/17 08/16/17 07:26 07:26 07:26 WBC 4.7 RBC 2.72 L Hgb 8.4 L Hct 26.5 L MCV 97.4 MCH 30.9 MCHC 31.7 L RDW 16.9 H RDW Differential 60.2 H Plt Count 99 L MPV 9.1 ESR 3 Sodium 138 Potassium 4.8 Chloride 103 Carbon Dioxide 23.0 Anion Gap 12 BUN 33 H Creatinine 5.91 H Estim Creat Clear Calc 11.49 Est GFR (MDRD) Af Amer 10 L Est GFR (MDRD) Non-Af 8 L BUN/Creatinine Ratio 5.6 L Glucose 154 H Calcium 7.5 L C-React Prot Ext Range 46.20 H Random Vancomycin 24.1 H POC Glucose 08/16/17 08/16/17 08/15/17 11:11 07:27 21:41 POC Glucose 200 H 159 H 195 H 08/15/17 08/15/17 17:05 13:45 POC Glucose 199 H 152 H Assessment/Plan Active and Suspected Problems ? Early small bowel obstruction (Acute) Possible Infectious Colitis (Acute) Abdominal pain (Acute) Inflammation of small intestine (Acute) ESRD. HD today, some breathing issues, will try fluid removal as tolerated Pilonidal cyst. extensive necrosis. will likely need diverting colostomy. surgery following
--- NOTE | 2017-08-16 13:36 | NURSING ---
wound photo: itz cleft/per-rectal
[2017-08-16] MEDS: Lactated Ringers 1,000 ML 15 ML IV (13:49)
[2017-08-16] MEDS: Clindamycin 900 MG/50 ML BAG 75 MG IV ×2 (13:52→22:46)
--- NOTE | 2017-08-16 15:55 | PCM.PN.SRG ---
Patient Problems: Active and Suspected Problems ? Early small bowel obstruction (Acute) Possible Infectious Colitis (Acute) Abdominal pain (Acute) Inflammation of small intestine (Acute) Subjective: Agreeable with colostomy - Physical Exam General: Alert, Oriented x3 Vital Signs Temp Pulse Resp BP Pulse Ox 98.5 F 68 18 108/57 L 98 08/16/17 13:55 08/16/17 13:55 08/16/17 13:55 08/16/17 13:55 08/16/17 13:55 Oxygen Flow Rate 4 Oxygen Delivery Method Nasal Cannula Weight: 95.481 kg Body Mass Index (BMI) 32.7 Intake and Output for Last 24 Hours 08/14/17 08/15/17 08/16/17 23:59 23:59 23:59 Intake Total 2180 / 2180 2450 / 2450 1602 / 1602 Output Total 4200 / 4200 150 / 150 5300 / 5300 Balance -2020 / -2020 2300 / 2300 -3698 / -3698 Microbiology Past 72 Hours 08/15/17 11:19 Gram Stain - Final Tissue - Pilondial 08/12/17 08:30 Gram Stain - Final Wound - Buttock Wound Culture - Final Streptococcus group G Gram positive carissa Laboratory Tests Past 24 Hrs 08/16/17 08/16/17 08/16/17 07:26 07:26 07:26 WBC 4.7 RBC 2.72 L Hgb 8.4 L Hct 26.5 L MCV 97.4 MCH 30.9 MCHC 31.7 L RDW 16.9 H RDW Differential 60.2 H Plt Count 99 L MPV 9.1 ESR 3 Sodium 138 Potassium 4.8 Chloride 103 Carbon Dioxide 23.0 Anion Gap 12 BUN 33 H Creatinine 5.91 H Estim Creat Clear Calc 11.49 Est GFR (MDRD) Af Amer 10 L Est GFR (MDRD) Non-Af 8 L BUN/Creatinine Ratio 5.6 L Glucose 154 H Calcium 7.5 L C-React Prot Ext Range 46.20 H Random Vancomycin 24.1 H POC Glucose 08/16/17 08/16/17 08/15/17 11:11 07:27 21:41 POC Glucose 200 H 159 H 195 H 08/15/17 17:05 POC Glucose 199 H Assessment/Plan Active and Suspected Problems ? Early small bowel obstruction (Acute) Possible Infectious Colitis (Acute) Abdominal pain (Acute) Inflammation of small intestine (Acute) in discussion with the patient-she states she had an incision and drainage of a pilonidal cyst approximately 4 years previously. She now notes multiple developing sinuses around the area. 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 I recommend referral to plastics anticipating she will need a wide excision and long-term wound care with wound VAC for probable protracted healing given her underlying medical condition and tobacco use. Dr Munroe performed wide excision of complex pilonidal wound - requesting diverting colostomy. Discussed with patient and she agrees. will plan for laparoscopic loop colostomy. Patient understands the risks benefits and alternatives.
--- NOTE | 2017-08-16 16:54 | NURSING ---
This RN attempted to call [facility] at this time to have sites drawn for colostomy per Dr. Zhang's orders- however, unable and unable to leave a message.
--- NOTE | 2017-08-16 17:13 | PCM.PN.SRG ---
Patient Problems: Active and Suspected Problems ? Early small bowel obstruction (Acute) Possible Infectious Colitis (Acute) Abdominal pain (Acute) Inflammation of small intestine (Acute) Subjective: Postop #1 Patient is resting comfortably. Betadine dressing change today. Patient had some pain with the dressing change. - Physical Exam General: Alert, Oriented x3 HEENT: PERRLA, EOMI Neck: Supple Lungs: Clear to auscultation Cardiovascular: Regular rate, Regular Rhythm Abdomen: Soft, Non-Distended Skin: Ulcer/ Wound - sacral wound with left gluteal extension is stable. No further evidence of infection. Some oozing seen controlled with pressure. Dressing change today with Betadine dressing. May consider a VAC after the colostomy is done. Neurological: Cranial nerves II-XII grossly intact Psych/Mental Status: Normal Affect, Appropriate Vital Signs Temp Pulse Resp BP Pulse Ox 98.5 F 68 18 108/57 L 98 08/16/17 13:55 08/16/17 13:55 08/16/17 13:55 08/16/17 13:55 08/16/17 13:55 Oxygen Flow Rate 4 Oxygen Delivery Method Nasal Cannula Weight: 210 lb 7.993 oz Body Mass Index (BMI) 32.7 Intake and Output for Last 24 Hours 08/14/17 08/15/17 08/16/17 23:59 23:59 23:59 Intake Total 2180 / 2180 2450 / 2450 1602 / 1602 Output Total 4200 / 4200 150 / 150 5300 / 5300 Balance -2020 / -2020 2300 / 2300 -3698 / -3698 Microbiology Past 72 Hours 08/15/17 11:19 Gram Stain - Final Tissue - Pilondial 08/12/17 08:30 Gram Stain - Final Wound - Buttock Wound Culture - Final Streptococcus group G Gram positive carissa Laboratory Tests Past 24 Hrs 08/16/17 08/16/17 08/16/17 07:26 07:26 07:26 WBC 4.7 RBC 2.72 L Hgb 8.4 L Hct 26.5 L MCV 97.4 MCH 30.9 MCHC 31.7 L RDW 16.9 H RDW Differential 60.2 H Plt Count 99 L MPV 9.1 ESR 3 Sodium 138 Potassium 4.8 Chloride 103 Carbon Dioxide 23.0 Anion Gap 12 BUN 33 H Creatinine 5.91 H Estim Creat Clear Calc 11.49 Est GFR (MDRD) Af Amer 10 L Est GFR (MDRD) Non-Af 8 L BUN/Creatinine Ratio 5.6 L Glucose 154 H Calcium 7.5 L C-React Prot Ext Range 46.20 H Random Vancomycin 24.1 H POC Glucose 08/16/17 08/16/17 08/15/17 11:11 07:27 21:41 POC Glucose 200 H 159 H 195 H 08/15/17 17:05 POC Glucose 199 H Assessment/Plan Active and Suspected Problems ? Early small bowel obstruction (Acute) Possible Infectious Colitis (Acute) Abdominal pain (Acute) Inflammation of small intestine (Acute) Assessment 1. 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 2. ESRD on dialysis. 3. Diabetes mellitus. 4. Anemia of chronic disease. 5. Smoker. 6. s/p surgical preparation sacral and left gluteal area with excision recurrent extensive complicated pilonidal cyst ulcers with left gluteal extension and necrotizing anal sphincter muscle involvement (152 cm2). Plan Continue IV antibiotics with Vancomycin and Zosyn. Cleocin added. Betadine dressing change today. Painful. No further evidence of infection. Dr. Zhang to proceed with diverting colostomy tomorrow. After the colostomy, may be able to place the VAC. Discussed with the patient that spending some time at discharge at an F would be beneficial. After her wound care has stabilized, and after her antibiotics are completed, we can consider discharge back to home at that time. Anticipate increased metabolic demands from the surgery and the infection. Prealbumin was 18.0. Encourage nutritional supplementation with protein to help the healing process. Her Hgb today was 8.4. She gets dialysis three days per week on , , and . After discharge, [facility]. If there is a plateau in the healing process, can consider delayed closure with skin grafting. At that point, would need to stop smoking to allow better healing of the elective skin graft. Encouraged the patient to stop smoking as it may have deleterious effects on wound healing.
[2017-08-16] MEDS: 0.9% NaCl Peripheral Flush Adult/Peds IV ×2 (17:57→22:40)
[2017-08-16 19:16] LABS: Bedside Glucose 162 mg/dL (70-110)
[2017-08-16] MEDS: Ondansetron 4 MG/2 ML Vial IV (22:10)
[2017-08-16] MEDS: ALPRAZolam 0.5 MG Tablet PO (22:38)
[2017-08-16] MEDS: 0.9% NaCl IVPB Med Flush (250 mL) 15 ML IV (23:00)
[2017-08-16 23:27] LABS: Bedside Glucose 246 mg/dL (70-110)
[2017-08-17] VITALS (14 sets, daily range): BP systolic 101–137; BP diastolic 43–73; PULSE 62–79; RESP 14–18; TEMP 36.2–36.8; O2SAT 93–100; BMI 33.8
[2017-08-17] MEDS: HYDROmorphone 2 MG TABLET PO ×2 (03:17→21:15)
[2017-08-17 05:53] LABS: Hematocrit 28.4 % (37-47); Hemoglobin 9.2 g/dl (12.0-15.0); Mean Corp Hgb Conc 32.4 g/gl (32-36); Mean Corpuscular Hgb 31.2 pg (27.0-32.0); Mean Corpuscular Volume 96.3 fL (81-99); Mean Platelet Vol. 9.1 fl (6.2-12.0); Platelet Count 122 K/mm3 (150-450); RBC Distribution Width CV 16.3 % (11.6-14.6); Red Blood Count 2.95 M/mm3 (4.2-5.4); White Blood Count 5.9 K/mm3 (4.4-11.0)
[2017-08-17 05:55] LABS: Scan Indicated on CBC? Y/N NO
[2017-08-17 05:59] LABS: Partial Thromboplast Time 34.1 Seconds (24.1-36.2)
[2017-08-17 06:25] LABS: Anion Gap 9 (5-15); BUN 20 mg/dL (7-18); BUN/Creat Ratio 4.3 RATIO (10-20); Calcium,Total 7.7 mg/dL (8.5-10.1); Chloride 95 mmol/L (98-107); Creatinine, Serum 4.68 mg/dL (0.55-1.02); EST Glomerular Filtration Rate 11 mL/min (>60); Est Glom Filt Rate - Afr Amer 13 mL/min (>60); Estimated Creatinine Clearance 14.51 ml/min; Glucose 145 mg/dL (70-110); Potassium 4.2 mmol/L (3.5-5.1); Sodium Level 135 mmol/L (136-145)
[2017-08-17] MEDS: Clindamycin 900 MG/50 ML BAG 75 MG IV ×3 (06:30→22:18)
[2017-08-17 06:46] LABS: Bedside Glucose 154 mg/dL (70-110)
--- NOTE | 2017-08-17 07:15 | NURSING ---
Was asked to meche patient for a transverse colostomy. Abdomen is large and round. Pt states she wears her pants right along the umbilical line. Had patient sit at side of bed to assess the folds of the abdomen. Marked above and below the umbilical line to the left abdomen for the stoma markings. since this nurse is unable to assess the rectus muscle well d/t the abdominal size, marked abdomen along the nipple line. Made sure to keep marking at least three finger widths away from the umbilicus. will send ostomy appliance to OR with the patient. Discussed this with Dr Zhang as well. will do further ostomy teaching post op.
[2017-08-17 08:21] LABS: Hemoglobin A1c 7.8 % (4.2-6.3)
--- NOTE | 2017-08-17 08:50 | NURSING ---
This RN spoke with Jaquan in pharmacy regarding 4hour infusion of zosyn scheduled for 1000. Jaquan states that this RN may infuse zosyn as a 30 minute infusion prior to surgery- same to be completed.
[2017-08-17] MEDS: Carvedilol 25 MG Tablet PO ×2 (09:31→22:15)
[2017-08-17] MEDS: Piperacil/Tazobactam 3.375 GM/50 ML ML IV ×2 (09:31→22:18)
--- NOTE | 2017-08-17 10:17 | CASEMGMT ---
Social Work Note Pt and family wanting referral made to [facility]. Placed call to [facility] who had denied the referral yesterday and she reports that they still would not be able to accept at this time. Will relay to pt and family and continue with plan for . Fiorella Martinez, S[employer]IOR [employer]
--- NOTE | 2017-08-17 10:31 | NURSING ---
Patient taken down pre-surgery at 0800 and Mary called and given report at this time. Notified of contact precautions, wound to buttocks- dry and intact, dialysis yesterday with 3.5 liters removed, fistula to left forearm- marked with bands, cpap and 2L oxygen and continuous spo2 on unit, hx CHF and DM recent blood transfusion and venofer administration, zosyn infused at this time over 30 minutes and cleocin due at 1400.
--- NOTE | 2017-08-17 10:42 | PCM.PN.ID ---
Patient Problems: Active and Suspected Problems ? Early small bowel obstruction (Acute) Possible Infectious Colitis (Acute) Abdominal pain (Acute) Inflammation of small intestine (Acute) Subjective: Going to OR for diverting colostomy. No fever, no n/v. - Physical Exam General: Alert, Cooperative, No apparent distress Lungs: Clear to auscultation, Normal air movement Cardiovascular: Regular rate, Regular Rhythm Abdomen: Soft, Non Tender Skin: No rashes, - - surg dressing in place Vital Signs Temp Pulse Resp BP Pulse Ox 98.2 F 62 16 101/57 L 96 08/17/17 09:25 08/17/17 09:25 08/17/17 09:25 08/17/17 09:25 08/17/17 09:25 Oxygen Flow Rate 2 Oxygen Delivery Method Nasal Cannula Weight: 95.5 kg Body Mass Index (BMI) 33.8 Intake and Output for Last 24 Hours 08/15/17 08/16/17 08/17/17 23:59 23:59 23:59 Intake Total 2450 / 2450 1602 / 1602 951 / 951 Output Total 150 / 150 5300 / 5300 300 / 300 Balance 2300 / 2300 -3698 / -3698 651 / 651 Microbiology Past 72 Hours 08/15/17 11:19 Gram Stain - Final Tissue - Pilondial Wound Culture - Preliminary Enterococcus avium GNR lactose new accounts representative 08/12/17 08:30 Gram Stain - Final Wound - Buttock Wound Culture - Final Streptococcus group G Gram positive carissa Laboratory Tests Past 24 Hrs 08/17/17 08/17/17 08/17/17 05:14 05:14 05:14 WBC 5.9 RBC 2.95 L Hgb 9.2 L Hct 28.4 L MCV 96.3 MCH 31.2 MCHC 32.4 RDW 16.3 H RDW Differential 57.0 H Plt Count 122 L MPV 9.1 APTT 34.1 Sodium 135 L Potassium 4.2 Chloride 95 L Carbon Dioxide 31.0 Anion Gap 9 BUN 20 H Creatinine 4.68 H Estim Creat Clear Calc 14.51 Est GFR (MDRD) Af Amer 13 L Est GFR (MDRD) Non-Af 11 L BUN/Creatinine Ratio 4.3 L Glucose 145 H Hemoglobin A1c Calcium 7.7 L 08/17/17 05:14 WBC RBC Hgb Hct MCV MCH MCHC RDW RDW Differential Plt Count MPV APTT Sodium Potassium Chloride Carbon Dioxide Anion Gap BUN Creatinine Estim Creat Clear Calc Est GFR (MDRD) Af Amer Est GFR (MDRD) Non-Af BUN/Creatinine Ratio Glucose Hemoglobin A1c 7.8 H Calcium POC Glucose 08/17/17 08/16/17 08/16/17 06:42 22:52 19:09 POC Glucose 154 H 246 H 162 H 08/16/17 11:11 POC Glucose 200 H Route of nutrition/ use of supplements: [] Nutritional Intake: [] IV Site: [] Meyer Catheter: [] - Assessment/Plan Antibiotics: [] Assessment/Plan: [] Active and Suspected Problems ? Early small bowel obstruction (Acute) Possible Infectious Colitis (Acute) Abdominal pain (Acute) Inflammation of small intestine (Acute) Necrotizing buttock infection related to pilonidal cysts, extending to anal sphincter - added clinda for anti-toxin effect. Cont vanc and zosyn while surg cxs are pending, so far showing enterococcus and GNR. ESRD Will follow.
[2017-08-17] MEDS: Bupivacaine Mpf 0.5% 30 ML VIAL (12:36)
--- NOTE | 2017-08-17 13:17 | CASEMGMT ---
Social Work Note Updated pt's mother that SW had contacted [facility] and they are still unable to accept the pt. Inform that the pt had also requested [facility] which SW checked with and they are able to accept. Understanding expressed and SW to continue to follow and assist with discharge planning. Fiorella Martinez, DIRECT SALES PROFESSIONAL HYDRAULICS TEACHER
--- NOTE | 2017-08-17 13:52 | OP.PCM_ITS ---
Problem List (1) Volume overload Status: Acute (2) ? Early small bowel obstruction Status: Acute (3) Possible Infectious Colitis Status: Acute (4) Abdominal pain Status: Acute (5) Inflammation of small intestine Status: Acute Report of Operation Date of Procedure: 08/17/17 Pre-Operative Diagnosis: 1. Recurrent extensive complicated pilonidal cyst ulcers. 2. ESRD on dialysis. 3. Diabetes mellitus. 4. Anemia of chronic disease. 5. Smoker. 6. - need for fecal diversion Post-Operative Diagnosis: 1. 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 2. ESRD on dialysis. 3. Diabetes mellitus. 4. Anemia of chronic disease. 5. Smoker. 6. 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 Estimated Blood Loss (mL): 50 Fluids Replaced: 600 Description of Procedure: The patient was brought to the operating suite. Sign in was performed verifying patient, site, procedure, position, and DVT prophylaxis with SCDs. the patient is artifact continue his Zosyn for her perineal infection. Enterostomal therapy meche possible locations for her transverse colostomy. Following induction of general anesthetic. The patient?s abdomen was prepped and draped in the usual fashion. Timeout was performed verifying patient, site , position. Local anesthetic was injected below the umbilicus. Incision made and dissection carried down to the umbilical root fascia. 2 stay sutures were placed. Incision made in the fascia, the peritoneum entered under direct visualization. A 10 mm Wick trocar was inserted and secured with the stay sutures. Pneumoperitoneum to 15 mmHg was insufflated. Visual inspection revealed adhesions of omentum to the umbilical hernia and otherwise unremarkable. Visualized abdominal structures with the exception of significant intra-abdominal adiposity . 2 5mm ports were placed in the right lateral position. Harmonic Scalpel was used dissect the omentum from its attachments at the fascial defect and allow the omentum was withdrawn from the umbilical hernia site. Next, Harmonic scalpel was used to open up the omentum overlying the planned site of the loop transverse colostomy. Once this site was felt to be adequately dissected and able to be brought up to the planned site, the colon was grasped. The Prolene [id number] suture was placed around the umbilical fascial defect. a circular incision was made at the previously marked location for the transverse loop colostomy and subcutaneous fat dissected down to fascia. A cruciate incision was made in the anterior fascial sheath. There was partial splitting of the rectus muscle but otherwise spreading and rectus sparing. The posterior sheath was then opened. 3-0 Vicryl sutures were placed through the 4 points of the cruciate incision. The anterior posterior sheath and the sutures tagged for later securing of the loop stoma. A [place] was used to grasp the previously prepared transverse colon and this was brought up through the incision. A window was made just below the colon. The colonic mesentery and a Kristan clamp was placed to allow this loop to maintain and the colostomy position. The 3-0 Vicryl sutures. Then used to secure the fascial sheath to bowel serosa. Pneumoperitoneum was reestablished. The 5mm ports were removed under direct visualization with no signs of bleeding. Pneumoperitoneum was released. The umbilical fascial defect was secured. Skin was closed with interrupted 4-0 Monocryl subcuticular sutures. Dermabond and bandages were applied. next, the stoma was matured. The Kristan was exchanged for a stoma carissa which was secured with 3-0 nylon suture. Next, the colostomy was opened up and the edges of the colostomy matured with interrupted 3-0 Vicryl sutures in a modified slight nipple position. The bowel was viable and inspection with the red top tube demonstrated easy entrance through both the proximal and distal limbs and good viability and pink color within the stoma. A stomal appliance was applied. The patient was extubated. The patient was brought to recovery room in stable condition. - Admit VTE Documentation VTE Present on Admission: No VTE Mechan Device Prophylaxis: SCD's VTE Pharm Prophylaxis ordered?: No
[2017-08-17 15:06] LABS: Bedside Glucose 118 mg/dL (70-110)
[2017-08-17] MEDS: 0.9% NaCl Peripheral Flush Adult/Peds IV ×3 (15:32→23:17)
--- NOTE | 2017-08-17 16:38 | NURSING ---
Dressing becoming saturated and beginning to seep through. This RN changed dressing at this time per orders. Pt tolerated well.
--- NOTE | 2017-08-17 16:44 | PN_ITS ---
Patient Problems: Active and Suspected Problems ? Early small bowel obstruction (Acute) Possible Infectious Colitis (Acute) Abdominal pain (Acute) Inflammation of small intestine (Acute) Subjective: Status post diverting colostomy. Patient just feeling rough. Vitals/I&O's: Vital Signs Temp Pulse Resp BP Pulse Ox 36.8 C 77 18 137/73 H 93 08/17/17 16:40 08/17/17 16:40 08/17/17 16:40 08/17/17 16:40 08/17/17 16:40 Oxygen Flow Rate 2 Oxygen Delivery Method Nasal Cannula Weight: 95.5 kg Body Mass Index (BMI) 33.8 Finger Stick Blood Glucose 118 Intake and Output for Last 24 Hours 08/15/17 08/16/17 08/17/17 23:59 23:59 23:59 Intake Total 2450 / 2450 1602 / 1602 1151 / 1151 Output Total 150 / 150 5300 / 5300 300 / 300 Balance 2300 / 2300 -3698 / -3698 851 / 851 General: Alert, Cooperative, No apparent distress, - - Lying on her side having packing placed and removed from her sacral wound. HEENT: Atraumatic, Normocephalic Skin: - - Large defect on the sacrum. Clean margins. Psych/Mental Status: Normal Affect, Appropriate Microbiology Past 72 Hours 08/15/17 11:19 Tissue - Pilondial Gram Stain - Final 08/15/17 11:19 Tissue - Pilondial Wound Culture - Preliminary Enterococcus avium GNR lactose engineering agent 08/12/17 08:30 Wound - Buttock Gram Stain - Final 08/12/17 08:30 Wound - Buttock Wound Culture - Final Streptococcus group G Gram positive carissa Laboratory Results 08/16/17 19:09: POC Glucose 162 H 08/16/17 22:52: POC Glucose 246 H 08/17/17 05:14: WBC 5.9, RBC 2.95 L, Hgb 9.2 L, Hct 28.4 L, MCV 96.3, MCH 31.2, MCHC 32.4, RDW 16.3 H, RDW Differential 57.0 H, Plt Count 122 L, MPV 9.1 08/17/17 05:14: Sodium 135 L, Potassium 4.2, Chloride 95 L, Carbon Dioxide 31.0 , Anion Gap 9, BUN 20 H, Creatinine 4.68 H, Estim Creat Clear Calc 14.51, Est GFR (MDRD) Af Amer 13 L, Est GFR (MDRD) Non-Af 11 L, BUN/Creatinine Ratio 4.3 L , Glucose 145 H, Calcium 7.7 L 08/17/17 05:14: APTT 34.1 08/17/17 05:14: Hemoglobin A1c 7.8 H 08/17/17 06:42: POC Glucose 154 H 08/17/17 14:48: POC Glucose 118 H Current Medications Acetaminophen (Tylenol) 650 mg PO Q6H PRN PRN PRN Reason: MILD PAIN (1-3/10) Last Admin: 08/16/17 00:57 Dose: 650 mg Alprazolam (Xanax) 0.5 mg PO TID PRN PRN PRN Reason: AGITATION Last Admin: 08/16/17 22:38 Dose: 0.5 mg Aspirin (Aspirin, Baby) 81 mg PO DAILY@0800 [facility] Last Admin: 08/17/17 08:47 Dose: Not Given Calcium Acetate (Phoslo Gel Cap) 667 mg PO TIDCM [facility] Last Admin: 08/17/17 16:14 Dose: Not Given Carvedilol (Coreg) 25 mg PO BID [facility] Last Admin: 08/17/17 09:31 Dose: 25 mg Dextrose (D50w Syringe) 0 gm IV X1 PRN; Protocol PRN Reason: Hypoglycemia Diazepam (Valium) 5 mg PO BID PRN PRN PRN Reason: SPASMS Last Admin: 08/16/17 13:48 Dose: 5 mg Diltiazem HCl (Cardizem Cd) 240 mg PO DAILY [facility] Last Admin: 08/16/17 09:05 Dose: 240 mg Glucagon () 1 mg IM .X1 PRN PRN Reason: Hypoglycemia Heparin Sodium (Porcine) (Heparin Na) 5,000 unit SC BID [facility] Last Admin: 08/17/17 06:55 Dose: Not Given Hydralazine HCl (Apresoline) 10 mg IV Q4H PRN PRN PRN Reason: SBP > 160 Hydromorphone HCl (Dilaudid) 2 - 4 mg PO Q4H PRN PRN PRN Reason: SEVERE PAIN (6-10/10) Last Admin: 08/17/17 03:17 Dose: 4 mg Piperacillin Sod/Tazobactam Sod (Zosyn) 3.375 gm in 50 mls @ 12.5 mls/hr IV Q12 [facility] Last Admin: 08/17/17 09:31 Dose: 12.5 mls/hr Clindamycin Phosphate (Cleocin) 900 mg in 50 mls @ 75 mls/hr IV Q8 [facility] Last Admin: 08/17/17 16:10 Dose: 75 mls/hr Sodium Chloride () 250 mls @ 15 mls/hr IV .[id number] PRN PRN Reason: SALINE FLUSH Last Admin: 08/16/17 23:00 Dose: 15 mls/hr Insulin Aspart (Novolog Flexpen ([facility])) 0 units SC ACHS [facility] PRN Reason: Protocol Last Admin: 08/17/17 16:13 Dose: Not Given Insulin Detemir (Levemir ([facility])) 5 units SC QHS [facility] Last Admin: 08/16/17 22:53 Dose: 5 u Lisinopril (Zestril) 20 mg PO DAILY [facility] Last Admin: 08/17/17 15:43 Dose: Not Given Magnesium Hydroxide (Milk Of Magnesia) 30 ml PO DAILY PRN PRN PRN Reason: Constipation Metoprolol Tartrate (Lopressor (Beta Chang)) 5 mg IV Q6H PRN PRN PRN Reason: SBP > 160 Last Admin: 08/13/17 04:14 Dose: 5 mg Morphine Sulfate (Morphine) 4 mg IV Q4H PRN PRN PRN Reason: SEVERE PAIN (6-10/10) Last Admin: 08/17/17 15:32 Dose: 4 mg Nicotine (Nicoderm Cq (Pbkc)) 7 mg TRANSDERM. DAILY [facility] Last Admin: 08/17/17 09:33 Dose: Not Given Nutritional Formula (Nepro Carb Steady) 120 ml PO 4X/DAY [facility] Last Admin: 08/17/17 16:14 Dose: Not Given Ondansetron HCl (Zofran) 4 mg IV Q8H PRN PRN PRN Reason: NAUSEA Last Admin: 08/16/17 22:10 Dose: 4 mg Pantoprazole Sodium (Protonix) 40 mg PO DAILY [facility] Last Admin: 08/16/17 09:45 Dose: 40 mg Promethazine HCl (Phenergan (Ll)) 12.5 mg IV Q6H PRN PRN PRN Reason: NAUSEA/VOMITING Last Admin: 08/17/17 03:29 Dose: 12.5 mg Sodium Bicarbonate (Sodium Bicarbonate) 650 mg PO MOWEFR [facility] Last Admin: 08/16/17 09:05 Dose: 650 mg Sodium Chloride () 5 - 30 ml IV UD PRN PRN Reason: SALINE FLUSH Last Admin: 08/17/17 15:32 Dose: 10 ml Vancomycin HCl () 1 lab MISCELL. MoWeFr@0600 [facility] Last Admin: 08/16/17 09:06 Dose: 1 lab Vancomycin HCl (Vancomycin Renal/Hd Dosing) 1 unit MISCELL. MoWeFr@0800 [facility] Last Admin: 08/16/17 08:38 Dose: Not Given Assessment/Plan Active and Suspected Problems ? Early small bowel obstruction (Acute) Possible Infectious Colitis (Acute) Abdominal pain (Acute) Inflammation of small intestine (Acute) 1. Pilonidal cyst: Discussed with Dr. Munroe. States that it was very extensive and almost to the point of involving the anal sphincter. H status post diverting colostomy he is also recommended that patient go to a facility afterwards for more proper wound care. Discussed with case management who states that the patient would not qualify for [facility] his vision was never in the ICU, plan is for the [facility] to [facility] when she is medically stable.. So we will look into [place] [facility] facilities at some point colostomy is performed. Continue with antibiotics. Will request infectious disease consult in regards to lengthen course of antibiotics. 2. Small bowel obstruction: Resolved. 3. End-stage renal disease on hemodialysis. 4. DVT prophylaxis with Lovenox. Code Visit Inpatient E&M: 25229 Subs Hosp L2
[2017-08-17 16:50] LABS: Bedside Glucose 111 mg/dL (70-110)
[2017-08-17] MEDS: dilTIAZem CD 240 MG Capsule PO (16:50)
[2017-08-17] MEDS: Pantoprazole Sodium 40 MG Tablet PO (16:50)
--- NOTE | 2017-08-17 17:46 | NURSING ---
Dr. Zhang out to nurses' station and states that patient's IV went bad downstairs and a new one needed to be replaced. He states it took [address] an IV and ordered a PICC line to be placed. This RN notified DOMINIC Navarro RN and she states that PICC cannot be placed because she is a dialysis patient. This RN contacted Dr. Martinez and notified him that a PICC line was ordered and that it is needed for IV antibiotics and lab draws- per Dr. Zhang's order. He states to continue to use the IV tonight and he will make some phone calls and see what he can do for patient tomorrow. Await approval or new orders from Dr. Martinez.
[2017-08-17 18:07] LABS: Absolute Lymphocyte Count 0.91 X10^3/ul (0.83-4.51); Absolute Neutrophil Count 5.4 X10^3/uL (2.0-7.7); Basophil# 0.01 X10^3/uL; Basophil% 0.1 % (0-1); Eosinophil# 0.22 X10^3/uL; Eosinophils% 3.1 % (0-5); Hematocrit 25.6 % (37-47); Hemoglobin 8.1 g/dl (12.0-15.0); Lymphocyte # 0.91 X10^3/ul (4.0); Mean Corp Hgb Conc 31.6 g/gl (32-36); Mean Corpuscular Hgb 31.3 pg (27.0-32.0); Mean Corpuscular Volume 98.8 fL (81-99); Mean Platelet Vol. 8.7 fl (6.2-12.0); Monocyte# 0.42 X10^3/uL; Neutrophil % 77.2 % (47-70); Platelet Count 136 K/mm3 (150-450); RBC Distribution Width CV 15.8 % (11.6-14.6); RBC Distribution Width SD 53.7 fl (35.1-43.9); Red Blood Count 2.59 M/mm3 (4.2-5.4)
[2017-08-17 18:20] LABS: POSITIVE COUNT NO; POSITIVE DIFFERENTIAL NO; POSITIVE MORPHOLOGY NO
[2017-08-17 18:45] LABS: ALB/GLOB Ratio 0.6 RATIO (0.9-2.4); AST(SGOT) 13 U/L (15-37); Alanine Aminotransfer ALT/SGPT 14 U/L (12-78); Albumin, Serum 2.3 g/dL (3.4-5.0); Alkaline Phosphatase 62 U/L (45-117); Anion Gap 7 (5-15); BUN 27 mg/dL (7-18); BUN/Creat Ratio 4.5 RATIO (10-20); Calcium,Total 8.1 mg/dL (8.5-10.1); Chloride 98 mmol/L (98-107); EST Glomerular Filtration Rate 8 mL/min (>60); Est Glom Filt Rate - Afr Amer 10 mL/min (>60); Estimated Creatinine Clearance 11.32 ml/min; Glucose 126 mg/dL (70-110); Potassium 4.9 mmol/L (3.5-5.1); Protein, Total 6.3 g/dL (6.4-8.2); Sodium Level 138 mmol/L (136-145)
[2017-08-17] MEDS: ALPRAZolam 0.5 MG Tablet PO (21:16)
[2017-08-17] MEDS: Gabapentin 100 MG Capsule 200 MG PO (22:15)
[2017-08-17] MEDS: 0.9% NaCl IVPB Med Flush (250 mL) 15 ML IV (22:18)
[2017-08-17 23:07] LABS: Bedside Glucose 95 mg/dL (70-110)
[2017-08-18] VITALS (8 sets, daily range): BP systolic 104–135; BP diastolic 57–75; PULSE 57–95; RESP 16–18; TEMP 36.8–37.2; O2SAT 79–100
[2017-08-18] MEDS: Ondansetron 4 MG/2 ML Vial IV ×2 (04:02→21:06)
[2017-08-18] MEDS: Clindamycin 900 MG/50 ML BAG 75 MG IV ×2 (06:45→15:08)
[2017-08-18] MEDS: HYDROmorphone 2 MG TABLET PO ×3 (06:50→19:34)
[2017-08-18 06:51] LABS: Bedside Glucose 145 mg/dL (70-110)
[2017-08-18] MEDS: Sodium Bicarbonate 650 MG Tablet PO (09:22)
[2017-08-18] MEDS: Aspirin 81 MG TAB.CHEW PO (09:23)
[2017-08-18] MEDS: Calcium Acetate 667 MG Capsule PO ×2 (09:23→18:56)
[2017-08-18] MEDS: Pantoprazole Sodium 40 MG Tablet PO (09:24)
[2017-08-18 09:31] LABS: Vancomycin, Random Level 14.2 ug/mL (0.0-15.0)
[2017-08-18] MEDS: Nepro Liquid 120 ML LIQUID PO ×2 (09:32→14:50)
[2017-08-18] MEDS: 0.9% NaCl Peripheral Flush Adult/Peds IV ×2 (09:34→21:07)
[2017-08-18 09:41] LABS: Absolute Lymphocyte Count 0.75 X10^3/ul (0.83-4.51); Absolute Neutrophil Count 5.3 X10^3/uL (2.0-7.7); Basophil# 0.01 X10^3/uL; Basophil% 0.1 % (0-1); Eosinophil# 0.27 X10^3/uL; Hematocrit 25.5 % (37-47); Hemoglobin 8.2 g/dl (12.0-15.0); Lymphocyte # 0.75 X10^3/ul (4.0); Lymphocyte % 11.1 % (19-41); Mean Corp Hgb Conc 32.2 g/gl (32-36); Mean Corpuscular Hgb 31.4 pg (27.0-32.0); Mean Corpuscular Volume 97.7 fL (81-99); Mean Platelet Vol. 8.7 fl (6.2-12.0); Monocyte# 0.42 X10^3/uL; Monocyte% 6.2 % (0-10); Neutrophil # 5.29 X10^3/uL (2.7-7.7); Neutrophil % 78.2 % (47-70); Platelet Count 130 K/mm3 (150-450); RBC Distribution Width CV 16.4 % (11.6-14.6); RBC Distribution Width SD 57.1 fl (35.1-43.9); Red Blood Count 2.61 M/mm3 (4.2-5.4); White Blood Count 6.8 K/mm3 (4.4-11.0)
[2017-08-18 09:43] LABS: POSITIVE COUNT NO; POSITIVE DIFFERENTIAL NO; POSITIVE MORPHOLOGY NO
[2017-08-18 09:44] LABS: Anion Gap 15 (5-15); BUN 31 mg/dL (7-18); BUN/Creat Ratio 4.5 RATIO (10-20); Calcium,Total 7.7 mg/dL (8.5-10.1); Chloride 97 mmol/L (98-107); EST Glomerular Filtration Rate 7 mL/min (>60); Est Glom Filt Rate - Afr Amer 8 mL/min (>60); Estimated Creatinine Clearance 9.84 ml/min; Glucose 132 mg/dL (70-110); Potassium 4.6 mmol/L (3.5-5.1); Sodium Level 136 mmol/L (136-145)
--- NOTE | 2017-08-18 10:17 | PCM.PN.HOSP ---
Patient Problems: Active and Suspected Problems ? Early small bowel obstruction (Acute) Possible Infectious Colitis (Acute) Abdominal pain (Acute) Inflammation of small intestine (Acute) Subjective: Doing well with CLD. Ambulated to today. Vitals/I&O's: Vital Signs Temp Pulse Resp BP Pulse Ox 37.2 C 57 L 16 115/74 100 08/18/17 09:07 08/18/17 09:07 08/18/17 09:07 08/18/17 09:07 08/18/17 09:07 Oxygen Flow Rate 4 Oxygen Delivery Method Nasal Cannula Weight: 94 kg Body Mass Index (BMI) 33.8 Finger Stick Blood Glucose 118 Intake and Output for Last 24 Hours 08/16/17 08/17/17 08/18/17 23:59 23:59 23:59 Intake Total 1602 / 1602 1851 / 1851 967 / 967 Output Total 5300 / 5300 300 / 300 150 / 150 Balance -3698 / -3698 1551 / 1551 817 / 817 General: Alert, Cooperative, No apparent distress, Well developed, Well nourished HEENT: Atraumatic, Normocephalic Neck: No Nodes, Thyroid Normal Size and Texture Lungs: Clear to auscultation, Normal air movement, No rhonchi, No wheeze Cardiovascular: Regular rate, Regular Rhythm, Normal S1, Normal S2 Abdomen: Soft, Non Tender, Obese, - - LLQ colostomy in place with some blood in bag. Extremities: No edema, No Calf Tenderness Psych/Mental Status: Normal Affect, Appropriate Microbiology Past 72 Hours 08/15/17 11:19 Tissue - Pilondial Gram Stain - Final 08/15/17 11:19 Tissue - Pilondial Wound Culture - Final Enterococcus avium Escherichia coli 08/12/17 08:30 Wound - Buttock Gram Stain - Final 08/12/17 08:30 Wound - Buttock Wound Culture - Final Streptococcus group G Gram positive carissa Laboratory Results 08/17/17 14:48: POC Glucose 118 H 08/17/17 16:13: POC Glucose 111 H 08/17/17 17:35: WBC 7.0, RBC 2.59 L, Hgb 8.1 L, Hct 25.6 L, MCV 98.8, MCH 31.3, MCHC 31.6 L, RDW 15.8 H, RDW Differential 53.7 H, Plt Count 136 L, MPV 8.7, Immature Gran % (Auto) 0.600, Neut % (Auto) 77.2 H, Lymph % (Auto) 13.0 L, [place] % (Auto) 6.0, Eos % (Auto) 3.1, Baso % (Auto) 0.1, Absolute Neuts (auto) 5.4, Absolute Lymphs (auto) 0.91, Total Counted Not Reportable 08/17/17 17:35: Sodium 138, Potassium 4.9, Chloride 98, Carbon Dioxide 33.0 H, Anion Gap 7, BUN 27 H, Creatinine 6.00 H, Estim Creat Clear Calc 11.32, Est GFR (MDRD) Af Amer 10 L, Est GFR (MDRD) Non-Af 8 L, BUN/Creatinine Ratio 4.5 L, Glucose 126 H, Calcium 8.1 L, Total Bilirubin 0.40, AST 13 L, ALT 14, Alkaline Phosphatase 62, Total Protein 6.3 L, Albumin 2.3 L, Globulin 4.0, Albumin/Globulin Ratio 0.6 L 08/17/17 22:26: POC Glucose 95 08/18/17 06:00: WBC 6.8, RBC 2.61 L, Hgb 8.2 L, Hct 25.5 L, MCV 97.7, MCH 31.4, MCHC 32.2, RDW 16.4 H, RDW Differential 57.1 H, Plt Count 130 L, MPV 8.7, Immature Gran % (Auto) 0.400, Neut % (Auto) 78.2 H, Lymph % (Auto) 11.1 L, [place] % (Auto) 6.2, Eos % (Auto) 4.0, Baso % (Auto) 0.1, Absolute Neuts (auto) 5.3, Absolute Lymphs (auto) 0.75 L, Total Counted Not Reportable 08/18/17 06:00: Sodium 136, Potassium 4.6, Chloride 97 L, Carbon Dioxide 24.0, Anion Gap 15, BUN 31 H, Creatinine 6.90 H, Estim Creat Clear Calc 9.84, Est GFR (MDRD) Af Amer 8 L, Est GFR (MDRD) Non-Af 7 L, BUN/Creatinine Ratio 4.5 L, Glucose 132 H, Calcium 7.7 L 08/18/17 06:04: Random Vancomycin 14.2 08/18/17 06:46: POC Glucose 145 H Current Medications Acetaminophen (Tylenol) 650 mg PO Q6H PRN PRN PRN Reason: MILD PAIN (1-310) Last Admin: 08/16/17 00:57 Dose: 650 mg Alprazolam (Xanax) 0.5 mg PO TID PRN PRN PRN Reason: AGITATION Last Admin: 08/17/17 21:16 Dose: 0.5 mg Aspirin (Aspirin, Baby) 81 mg PO DAILY@0800 [facility] Last Admin: 08/18/17 09:23 Dose: 81 mg Calcium Acetate (Phoslo Gel Cap) 667 mg PO TIDCM [facility] Last Admin: 08/18/17 09:23 Dose: 667 mg Carvedilol (Coreg) 25 mg PO BID [facility] Last Admin: 08/18/17 09:21 Dose: Not Given Dextrose (D50w Syringe) 0 gm IV X1 PRN; Protocol PRN Reason: Hypoglycemia Diazepam (Valium) 5 mg PO BID PRN PRN PRN Reason: SPASMS Last Admin: 08/16/17 13:48 Dose: 5 mg Diltiazem HCl (Cardizem Cd) 240 mg PO DAILY [facility] Last Admin: 08/18/17 09:22 Dose: Not Given Glucagon () 1 mg IM .X1 PRN PRN Reason: Hypoglycemia Heparin Sodium (Porcine) (Heparin Na) 5,000 unit SC BID [facility] Last Admin: 08/18/17 09:32 Dose: 5,000 units Hydralazine HCl (Apresoline) 10 mg IV Q4H PRN PRN PRN Reason: SBP > 160 Hydromorphone HCl (Dilaudid) 2 - 4 mg PO Q4H PRN PRN PRN Reason: SEVERE PAIN (6-10/10) Last Admin: 08/18/17 06:50 Dose: 4 mg Piperacillin Sod/Tazobactam Sod (Zosyn) 3.375 gm in 50 mls @ 12.5 mls/hr IV Q12 [facility] Last Admin: 08/18/17 09:21 Dose: Not Given Clindamycin Phosphate (Cleocin) 900 mg in 50 mls @ 75 mls/hr IV Q8 [facility] Last Admin: 08/18/17 06:45 Dose: 75 mls/hr Sodium Chloride () 250 mls @ 15 mls/hr IV .[id number] PRN PRN Reason: SALINE FLUSH Last Admin: 08/17/17 22:18 Dose: 15 mls/hr Insulin Aspart (Novolog Flexpen (Bkc)) 0 units SC ACHS [facility] PRN Reason: Protocol Last Admin: 08/18/17 06:47 Dose: Not Given Insulin Detemir (Levemir (Bk)) 5 units SC QHS [facility] Last Admin: 08/17/17 22:27 Dose: Not Given Lisinopril (Zestril) 20 mg PO DAILY [facility] Last Admin: 08/18/17 09:21 Dose: Not Given Magnesium Hydroxide (Milk Of Magnesia) 30 ml PO DAILY PRN PRN PRN Reason: Constipation Metoprolol Tartrate (Lopressor (Beta Chang)) 5 mg IV Q6H PRN PRN PRN Reason: SBP > 160 Last Admin: 08/13/17 04:14 Dose: 5 mg Morphine Sulfate (Morphine) 4 mg IV Q3H PRN PRN PRN Reason: SEVERE PAIN (6-10/10) Last Admin: 08/18/17 09:35 Dose: 4 mg Nicotine (Nicoderm Cq (Pbkc)) 7 mg TRANSDERM. DAILY [facility] Last Admin: 08/18/17 09:11 Dose: Not Given Nutritional Formula (Nepro Carb Steady) 120 ml PO 4X/DAY [facility] Last Admin: 08/18/17 09:32 Dose: 120 ml Ondansetron HCl (Zofran) 4 mg IV Q8H PRN PRN PRN Reason: NAUSEA Last Admin: 08/18/17 04:02 Dose: 4 mg Pantoprazole Sodium (Protonix) 40 mg PO DAILY [facility] Last Admin: 08/18/17 09:24 Dose: 40 mg Promethazine HCl (Phenergan (Ll)) 12.5 mg IV Q6H PRN PRN PRN Reason: NAUSEA/VOMITING Last Admin: 08/17/17 22:16 Dose: 12.5 mg Sodium Bicarbonate (Sodium Bicarbonate) 650 mg PO MOWEFR [facility] Last Admin: 08/18/17 09:22 Dose: 650 mg Sodium Chloride () 5 - 30 ml IV UD PRN PRN Reason: SALINE FLUSH Last Admin: 08/18/17 09:34 Dose: 10 ml Vancomycin HCl () 1 lab RAFAEL. EmilyFr@0600 [facility] Last Admin: 08/18/17 07:26 Dose: 1 lab Vancomycin HCl (Vancomycin Renal/Hd Dosing) 1 unit FERNANDEZCELL. EmilyFr@0800 [facility] Last Admin: 08/18/17 09:22 Dose: Not Given Assessment/Plan Active and Suspected Problems ? Early small bowel obstruction (Acute) Possible Infectious Colitis (Acute) Abdominal pain (Acute) Inflammation of small intestine (Acute) 1. Pilonidal cyst: Discussed with Dr. Munroe. States that it was very extensive and almost to the point of involving the anal sphincter. H status post diverting colostomy he is also recommended that patient go to a facility afterwards for more proper wound care. Discussed with case management who states that the patient would not qualify for [facility] his vision was never in the ICU, plan is for the patient to go to [facility] when she is medically stable.. So we will look into care home facilities at some point colostomy is performed. Continue with antibiotics. Will request infectious disease consult in regards to lengthen course of antibiotics. 2. Small bowel obstruction: Resolved. 3. End-stage renal disease on hemodialysis. 4. DVT prophylaxis with Lovenox. Code Visit Inpatient E&M: 31061 Subs Hosp L2
[2017-08-18 12:05] LABS: Bedside Glucose 127 mg/dL (70-110)
--- NOTE | 2017-08-18 12:06 | NURSING ---
This nurse is aware that Vancomycin IV is due now at noon but pt is still getting dialysis. Will wait until done with dialysis.
--- NOTE | 2017-08-18 14:36 | DIALYSIS ---
HD x 3.5 hours complete. Tolerated tx well. UF of 3000ml. Used left arm fistula. Epogen and venofer given as ordered. See tx sheet for more details. Report was given to MALLORY Joy.
--- NOTE | 2017-08-18 14:44 | PCM.PN.BLA ---
Progress Note In dialysis today See orders/flowsheet Blood pressure 135/75 Access is AV fistula Discussed with Dr. Addison. Sensitivities are pending as of now. We will try to arrange antibiotics with dialysis. Vancomycin, ceftazidime, cefazolin can be arranged to be dosed with dialysis.
[2017-08-18] MEDS: dilTIAZem CD 240 MG Capsule PO (14:54)
[2017-08-18] MEDS: Lisinopril 20 MG Tablet PO (14:54)
--- NOTE | 2017-08-18 15:13 | NURSING ---
there was a moderate amount of bloody drainage noted on inferior surface of the ostomy appliance. removed appliance. there was some bleeding noted from around the stoma. stoma is beefy red. carissa is in place. cleansed peristomal skin with warm water and patted dry. applied new 2 piece Soumya flat appliance with an Rohith ring. pt tolerated well.
--- NOTE | 2017-08-18 16:16 | PN.ID_ITS ---
Patient Problems: Active and Suspected Problems ? Early small bowel obstruction (Acute) Possible Infectious Colitis (Acute) Abdominal pain (Acute) Inflammation of small intestine (Acute) Subjective: Feeling better, abd sore, no fever - Physical Exam General: Alert, Cooperative Lungs: Clear to auscultation, Normal air movement Cardiovascular: Regular rate, Regular Rhythm Abdomen: Soft, Non-Distended, Tender - mild Skin: No rashes Vital Signs Temp Pulse Resp BP Pulse Ox 98.2 F 81 16 104/75 94 08/18/17 15:14 08/18/17 15:14 08/18/17 15:14 08/18/17 15:14 08/18/17 15:14 Oxygen Flow Rate 3 Oxygen Delivery Method Nasal Cannula Weight: 94 kg Body Mass Index (BMI) 33.8 Finger Stick Blood Glucose 118 Intake and Output for Last 24 Hours 08/16/17 08/17/17 08/18/17 23:59 23:59 23:59 Intake Total 1602 / 1602 1851 / 1851 1545 / 1545 Output Total 5300 / 5300 300 / 300 6150 / 6150 Balance -3698 / -3698 1551 / 1551 -4605 / -4605 Microbiology Past 72 Hours 08/15/17 11:19 Gram Stain - Final Tissue - Pilondial Wound Culture - Final Enterococcus avium Escherichia coli Anaerobic Culture - Preliminary Checking for anaerobes, further studies to follow. Laboratory Tests Past 24 Hrs 08/17/17 08/17/17 08/18/17 17:35 17:35 06:00 WBC 7.0 6.8 RBC 2.59 L 2.61 L Hgb 8.1 L 8.2 L Hct 25.6 L 25.5 L MCV 98.8 97.7 MCH 31.3 31.4 MCHC 31.6 L 32.2 RDW 15.8 H 16.4 H RDW Differential 53.7 H 57.1 H Plt Count 136 L 130 L MPV 8.7 8.7 Immature Gran % (Auto) 0.600 0.400 Neut % (Auto) 77.2 H 78.2 H Lymph % (Auto) 13.0 L 11.1 L [place] % (Auto) 6.0 6.2 Eos % (Auto) 3.1 4.0 Baso % (Auto) 0.1 0.1 Absolute Neuts (auto) 5.4 5.3 Absolute Lymphs (auto) 0.91 0.75 L Total Counted Not Reportable Not Reportable Sodium 138 Potassium 4.9 Chloride 98 Carbon Dioxide 33.0 H Anion Gap 7 BUN 27 H Creatinine 6.00 H Estim Creat Clear Calc 11.32 Est GFR (MDRD) Af Amer 10 L Est GFR (MDRD) Non-Af 8 L BUN/Creatinine Ratio 4.5 L Glucose 126 H Calcium 8.1 L Total Bilirubin 0.40 AST 13 L ALT 14 Alkaline Phosphatase 62 Total Protein 6.3 L Albumin 2.3 L Globulin 4.0 Albumin/Globulin Ratio 0.6 L Random Vancomycin 08/18/17 08/18/17 06:00 06:04 WBC RBC Hgb Hct MCV MCH MCHC RDW RDW Differential Plt Count MPV Immature Gran % (Auto) Neut % (Auto) Lymph % (Auto) [place] % (Auto) Eos % (Auto) Baso % (Auto) Absolute Neuts (auto) Absolute Lymphs (auto) Total Counted Sodium 136 Potassium 4.6 Chloride 97 L Carbon Dioxide 24.0 Anion Gap 15 BUN 31 H Creatinine 6.90 H Estim Creat Clear Calc 9.84 Est GFR (MDRD) Af Amer 8 L Est GFR (MDRD) Non-Af 7 L BUN/Creatinine Ratio 4.5 L Glucose 132 H Calcium 7.7 L Total Bilirubin AST ALT Alkaline Phosphatase Total Protein Albumin Globulin Albumin/Globulin Ratio Random Vancomycin 14.2 POC Glucose 08/18/17 08/18/17 08/17/17 11:56 06:46 22:26 POC Glucose 127 H 145 H 95 08/17/17 16:13 POC Glucose 111 H Route of nutrition/ use of supplements: [] Nutritional Intake: [] IV Site: [] Meyer Catheter: [] - Assessment/Plan Antibiotics: [] Assessment/Plan: [] Active and Suspected Problems ? Early small bowel obstruction (Acute) Possible Infectious Colitis (Acute) Abdominal pain (Acute) Inflammation of small intestine (Acute) Necrotizing buttock infection related to pilonidal cysts, extending to anal sphincter - Cxs with GPR, strep, ecoli, and enterococcus. Plan on discharge on po flagyl 500mg tid and iv vanc and ceftazidime 2gm dosed with HD. Stop date will be 08/30/17. ESRD Will follow. D/w Dr. Martinez and therapeutic case manager.
[2017-08-18 17:11] LABS: Bedside Glucose 168 mg/dL (70-110)
--- NOTE | 2017-08-18 18:05 | PCM.PN.SRG ---
Patient Problems: Active and Suspected Problems ? Early small bowel obstruction (Acute) Possible Infectious Colitis (Acute) Abdominal pain (Acute) Inflammation of small intestine (Acute) Subjective: hungry - Physical Exam General: Alert, Oriented x3 Lungs: Clear to auscultation, Normal air movement Cardiovascular: Regular rate, Regular Rhythm Abdomen: Bowel Sounds Present, Soft, Tender - at incisions - stoma site-bar in place with expected edema of stoma. Serous bloody stoma drainage with no significant stool or air in stoma bag Vital Signs Temp Pulse Resp BP Pulse Ox 98.2 F 81 16 104/75 94 08/18/17 15:14 08/18/17 15:14 08/18/17 15:14 08/18/17 15:14 08/18/17 15:14 Oxygen Flow Rate 3 Oxygen Delivery Method Nasal Cannula Weight: 94 kg Body Mass Index (BMI) 33.8 Finger Stick Blood Glucose 118 Intake and Output for Last 24 Hours 08/16/17 08/17/17 08/18/17 23:59 23:59 23:59 Intake Total 1602 / 1602 1851 / 1851 1545 / 1545 Output Total 5300 / 5300 300 / 300 6150 / 6150 Balance -3698 / -3698 1551 / 1551 -4605 / -4605 Microbiology Past 72 Hours 08/15/17 11:19 Gram Stain - Final Tissue - Pilondial Wound Culture - Final Enterococcus avium Escherichia coli Anaerobic Culture - Preliminary Checking for anaerobes, further studies to follow. Laboratory Tests Past 24 Hrs 08/17/17 08/17/17 08/18/17 17:35 17:35 06:00 WBC 7.0 6.8 RBC 2.59 L 2.61 L Hgb 8.1 L 8.2 L Hct 25.6 L 25.5 L MCV 98.8 97.7 MCH 31.3 31.4 MCHC 31.6 L 32.2 RDW 15.8 H 16.4 H RDW Differential 53.7 H 57.1 H Plt Count 136 L 130 L MPV 8.7 8.7 Immature Gran % (Auto) 0.600 0.400 Neut % (Auto) 77.2 H 78.2 H Lymph % (Auto) 13.0 L 11.1 L [place] % (Auto) 6.0 6.2 Eos % (Auto) 3.1 4.0 Baso % (Auto) 0.1 0.1 Absolute Neuts (auto) 5.4 5.3 Absolute Lymphs (auto) 0.91 0.75 L Total Counted Not Reportable Not Reportable Sodium 138 Potassium 4.9 Chloride 98 Carbon Dioxide 33.0 H Anion Gap 7 BUN 27 H Creatinine 6.00 H Estim Creat Clear Calc 11.32 Est GFR (MDRD) Af Amer 10 L Est GFR (MDRD) Non-Af 8 L BUN/Creatinine Ratio 4.5 L Glucose 126 H Calcium 8.1 L Total Bilirubin 0.40 AST 13 L ALT 14 Alkaline Phosphatase 62 Total Protein 6.3 L Albumin 2.3 L Globulin 4.0 Albumin/Globulin Ratio 0.6 L Random Vancomycin 08/18/17 08/18/17 06:00 06:04 WBC RBC Hgb Hct MCV MCH MCHC RDW RDW Differential Plt Count MPV Immature Gran % (Auto) Neut % (Auto) Lymph % (Auto) [place] % (Auto) Eos % (Auto) Baso % (Auto) Absolute Neuts (auto) Absolute Lymphs (auto) Total Counted Sodium 136 Potassium 4.6 Chloride 97 L Carbon Dioxide 24.0 Anion Gap 15 BUN 31 H Creatinine 6.90 H Estim Creat Clear Calc 9.84 Est GFR (MDRD) Af Amer 8 L Est GFR (MDRD) Non-Af 7 L BUN/Creatinine Ratio 4.5 L Glucose 132 H Calcium 7.7 L Total Bilirubin AST ALT Alkaline Phosphatase Total Protein Albumin Globulin Albumin/Globulin Ratio Random Vancomycin 14.2 POC Glucose 08/18/17 08/18/17 08/18/17 16:56 11:56 06:46 POC Glucose 168 H 127 H 145 H 08/17/17 22:26 POC Glucose 95 Assessment/Plan Active and Suspected Problems ? Early small bowel obstruction (Acute) Possible Infectious Colitis (Acute) Abdominal pain (Acute) Inflammation of small intestine (Acute) POD # 1 s/p laparoscopic transverse loop colostomy. Patient denies nausea or other difficulties. States she is hungry. Tolerating clear liquids well. Minimal succus output from the stoma currently. We will advance diet, but need to be careful to assure that the patient does not come distended. enterostomal therapy to assist in stoma management.
[2017-08-18] MEDS: diazePAM 5 MG Tablet PO (18:55)
[2017-08-18] MEDS: metroNIDAZOLE 500 MG Tablet PO (23:00)
[2017-08-18] MEDS: Carvedilol 25 MG Tablet PO (23:00)
[2017-08-18 23:36] LABS: Bedside Glucose 180 mg/dL (70-110)
[2017-08-19] VITALS (7 sets, daily range): BP systolic 108–133; BP diastolic 49–60; PULSE 65–77; RESP 16–20; TEMP 36.4–37.2; O2SAT 92–96
[2017-08-19] MEDS: Acetaminophen 325 MG Tablet 650 MG PO (01:48)
[2017-08-19] MEDS: HYDROmorphone 2 MG TABLET PO (01:48)
--- NOTE | 2017-08-19 03:23 | NURSING ---
Pt walked on room air down to end of hallway to room 316 and back. Desat into 70s on a few occasions, improved to mid 80s with pt stopping and taking some deep breaths. Belching after walk. Encouraged pt to mobilise 5 x day
[2017-08-19] MEDS: metroNIDAZOLE 500 MG Tablet PO ×3 (06:23→21:46)
[2017-08-19 06:36] LABS: Bedside Glucose 159 mg/dL (70-110)
[2017-08-19 07:37] LABS: Absolute Lymphocyte Count 0.82 X10^3/ul (0.83-4.51); Absolute Neutrophil Count 5.6 X10^3/uL (2.0-7.7); Basophil# 0.03 X10^3/uL; Basophil% 0.4 % (0-1); Eosinophil# 0.16 X10^3/uL; Eosinophils% 2.2 % (0-5); Hematocrit 25.1 % (37-47); Lymphocyte # 0.82 X10^3/ul (4.0); Lymphocyte % 11.1 % (19-41); Mean Corp Hgb Conc 31.9 g/gl (32-36); Mean Corpuscular Hgb 31.9 pg (27.0-32.0); Mean Platelet Vol. 8.8 fl (6.2-12.0); Monocyte% 9.5 % (0-10); Neutrophil # 5.59 X10^3/uL (2.7-7.7); Neutrophil % 75.7 % (47-70); Platelet Count 140 K/mm3 (150-450); RBC Distribution Width CV 15.9 % (11.6-14.6); Red Blood Count 2.51 M/mm3 (4.2-5.4); White Blood Count 7.4 K/mm3 (4.4-11.0)
[2017-08-19 07:51] LABS: POSITIVE COUNT NO; POSITIVE DIFFERENTIAL NO; POSITIVE MORPHOLOGY NO
[2017-08-19 07:56] LABS: Anion Gap 8 (5-15); BUN 21 mg/dL (7-18); BUN/Creat Ratio 3.8 RATIO (10-20); Calcium,Total 8.3 mg/dL (8.5-10.1); Chloride 92 mmol/L (98-107); Creatinine, Serum 5.58 mg/dL (0.55-1.02); EST Glomerular Filtration Rate 9 mL/min (>60); Est Glom Filt Rate - Afr Amer 11 mL/min (>60); Estimated Creatinine Clearance 12.17 ml/min; Glucose 160 mg/dL (70-110); Potassium 3.5 mmol/L (3.5-5.1); Sodium Level 131 mmol/L (136-145)
--- NOTE | 2017-08-19 08:52 | PCM.PN.SRG ---
Patient Problems: Active and Suspected Problems ? Early small bowel obstruction (Acute) Possible Infectious Colitis (Acute) Abdominal pain (Acute) Inflammation of small intestine (Acute) Subjective: bloated after trying solid food yesterday - Physical Exam General: Alert, Oriented x3 Lungs: Clear to auscultation, Normal air movement Cardiovascular: Regular rate, Regular Rhythm Abdomen: Bowel Sounds Present, Soft, - - incisions clean, dry and intact, stoma bag in place with minimal air and no stool in bag yet Vital Signs Temp Pulse Resp BP Pulse Ox 97.5 F L 76 18 109/59 L 96 08/19/17 03:01 08/19/17 03:01 08/19/17 03:01 08/19/17 03:01 08/19/17 03:01 Oxygen Flow Rate 5 Oxygen Delivery Method Nasal Cannula Weight: 93.9 kg Body Mass Index (BMI) 33.8 Finger Stick Blood Glucose 118 Intake and Output for Last 24 Hours 08/17/17 08/18/17 08/19/17 23:59 23:59 23:59 Intake Total 1851 / 1851 1545 / 1545 806 / 806 Output Total 300 / 300 6150 / 6150 Balance 1551 / 1551 -4605 / -4605 806 / 806 Microbiology Past 72 Hours 08/15/17 11:19 Gram Stain - Final Tissue - Pilondial Wound Culture - Final Enterococcus avium Escherichia coli Anaerobic Culture - Preliminary Checking for anaerobes, further studies to follow. Laboratory Tests Past 24 Hrs 08/18/17 08/18/17 08/18/17 06:00 06:00 06:04 WBC 6.8 RBC 2.61 L Hgb 8.2 L Hct 25.5 L MCV 97.7 MCH 31.4 MCHC 32.2 RDW 16.4 H RDW Differential 57.1 H Plt Count 130 L MPV 8.7 Immature Gran % (Auto) 0.400 Neut % (Auto) 78.2 H Lymph % (Auto) 11.1 L [place] % (Auto) 6.2 Eos % (Auto) 4.0 Baso % (Auto) 0.1 Absolute Neuts (auto) 5.3 Absolute Lymphs (auto) 0.75 L Total Counted Not Reportable Sodium 136 Potassium 4.6 Chloride 97 L Carbon Dioxide 24.0 Anion Gap 15 BUN 31 H Creatinine 6.90 H Estim Creat Clear Calc 9.84 Est GFR (MDRD) Af Amer 8 L Est GFR (MDRD) Non-Af 7 L BUN/Creatinine Ratio 4.5 L Glucose 132 H Calcium 7.7 L Random Vancomycin 14.2 08/19/17 08/19/17 06:30 06:30 WBC 7.4 RBC 2.51 L Hgb 8.0 L Hct 25.1 L MCV 100.0 H MCH 31.9 MCHC 31.9 L RDW 15.9 H RDW Differential 56.0 H Plt Count 140 L MPV 8.8 Immature Gran % (Auto) 1.100 H Neut % (Auto) 75.7 H Lymph % (Auto) 11.1 L [place] % (Auto) 9.5 Eos % (Auto) 2.2 Baso % (Auto) 0.4 Absolute Neuts (auto) 5.6 Absolute Lymphs (auto) 0.82 L Total Counted Not Reportable Sodium 131 L Potassium 3.5 Chloride 92 L Carbon Dioxide 31.0 Anion Gap 8 BUN 21 H Creatinine 5.58 H Estim Creat Clear Calc 12.17 Est GFR (MDRD) Af Amer 11 L Est GFR (MDRD) Non-Af 9 L BUN/Creatinine Ratio 3.8 L Glucose 160 H Calcium 8.3 L Random Vancomycin POC Glucose 08/19/17 08/18/17 08/18/17 06:20 22:58 16:56 POC Glucose 159 H 180 H 168 H 08/18/17 11:56 POC Glucose 127 H Assessment/Plan Active and Suspected Problems ? Early small bowel obstruction (Acute) Possible Infectious Colitis (Acute) Abdominal pain (Acute) Inflammation of small intestine (Acute) POD # 2 s/p laparoscopic transverse loop colostomy. Patient denies nausea or other difficulties. States she is hungry. Tolerating clear liquids well. Minimal succus output from the stoma currently. She did not tolerate advanced diet - clears until stoma output. enterostomal therapy to assist in stoma management.
[2017-08-19] MEDS: Aspirin 81 MG TAB.CHEW PO (09:08)
[2017-08-19] MEDS: Calcium Acetate 667 MG Capsule PO ×3 (09:08→18:07)
[2017-08-19] MEDS: Lisinopril 20 MG Tablet PO (11:39)
[2017-08-19] MEDS: Pantoprazole Sodium 40 MG Tablet PO (11:39)
[2017-08-19] MEDS: dilTIAZem CD 240 MG Capsule PO (11:39)
[2017-08-19] MEDS: Carvedilol 25 MG Tablet PO ×2 (11:39→21:45)
[2017-08-19] MEDS: Nepro Liquid 120 ML LIQUID PO ×2 (11:52→21:46)
[2017-08-19 13:31] LABS: Bedside Glucose 214 mg/dL (70-110)
--- NOTE | 2017-08-19 13:31 | PCM.PN.HOSP ---
Patient Problems: Active and Suspected Problems ? Early small bowel obstruction (Acute) Possible Infectious Colitis (Acute) Abdominal pain (Acute) Inflammation of small intestine (Acute) Subjective: Some nausea today and abdominal pain. Not really tolerating diets. Vitals/I&O's: Vital Signs Temp Pulse Resp BP Pulse Ox 36.7 C 65 20 H 121/59 H 96 08/19/17 09:00 08/19/17 09:00 08/19/17 09:00 08/19/17 09:00 08/19/17 11:45 Oxygen Flow Rate 3 Oxygen Delivery Method Nasal Cannula Weight: 93.9 kg Body Mass Index (BMI) 33.8 Finger Stick Blood Glucose 118 Intake and Output for Last 24 Hours 08/17/17 08/18/17 08/19/17 23:59 23:59 23:59 Intake Total 1851 / 1851 1545 / 1545 806 / 806 Output Total 300 / 300 6150 / 6150 Balance 1551 / 1551 -4605 / -4605 806 / 806 General: Alert, Cooperative, No apparent distress HEENT: Atraumatic, Normocephalic Neck: No Nodes, Thyroid Normal Size and Texture Lungs: Clear to auscultation, Normal air movement, No rhonchi, No wheeze Cardiovascular: Regular rate, Regular Rhythm, Normal S1, Normal S2, No murmurs Abdomen: Distended, - - Late red serous discharge from the ostomy Extremities: No edema, No Calf Tenderness Psych/Mental Status: Normal Affect, Appropriate Microbiology Past 72 Hours 08/15/17 11:19 Tissue - Pilondial Gram Stain - Final 08/15/17 11:19 Tissue - Pilondial Wound Culture - Final Enterococcus avium Escherichia coli 08/15/17 11:19 Tissue - Pilondial Anaerobic Culture - Preliminary Checking for anaerobes, further studies to follow. Laboratory Results 08/18/17 16:56: POC Glucose 168 H 08/18/17 22:58: POC Glucose 180 H 08/19/17 06:20: POC Glucose 159 H 08/19/17 06:30: WBC 7.4, RBC 2.51 L, Hgb 8.0 L, Hct 25.1 L, MCV 100.0 H, MCH 31.9, MCHC 31.9 L, RDW 15.9 H, RDW Differential 56.0 H, Plt Count 140 L, MPV 8.8, Immature Gran % (Auto) 1.100 H, Neut % (Auto) 75.7 H, Lymph % (Auto) 11.1 L, [place] % (Auto) 9.5, Eos % (Auto) 2.2, Baso % (Auto) 0.4, Absolute Neuts (auto) 5.6, Absolute Lymphs (auto) 0.82 L, Total Counted Not Reportable 08/19/17 06:30: Sodium 131 L, Potassium 3.5, Chloride 92 L, Carbon Dioxide 31.0, Anion Gap 8, BUN 21 H, Creatinine 5.58 H, Estim Creat Clear Calc 12.17, Est GFR (MDRD) Af Amer 11 L, Est GFR (MDRD) Non-Af 9 L, BUN/Creatinine Ratio 3.8 L, Glucose 160 H, Calcium 8.3 L 08/19/17 13:23: POC Glucose 214 H Current Medications Acetaminophen (Tylenol) 650 mg PO Q6H PRN PRN PRN Reason: MILD PAIN (-09/30) Last Admin: 08/19/17 01:48 Dose: 650 mg Alprazolam (Xanax) 0.5 mg PO TID PRN PRN PRN Reason: AGITATION Last Admin: 08/17/17 21:16 Dose: 0.5 mg Aspirin (Aspirin, Baby) 81 mg PO DAILY@0800 [facility] Last Admin: 08/19/17 09:08 Dose: 81 mg Calcium Acetate (Phoslo Gel Cap) 667 mg PO TIDCM [facility] Last Admin: 08/19/17 13:26 Dose: 667 mg Carvedilol (Coreg) 25 mg PO BID [facility] Last Admin: 08/19/17 11:39 Dose: 25 mg Dextrose (D50w Syringe) 0 gm IV X1 PRN; Protocol PRN Reason: Hypoglycemia Diazepam (Valium) 5 mg PO BID PRN PRN PRN Reason: SPASMS Last Admin: 08/18/17 18:55 Dose: 5 mg Diltiazem HCl (Cardizem Cd) 240 mg PO DAILY [facility] Last Admin: 08/19/17 11:39 Dose: 240 mg Glucagon () 1 mg IM .X1 PRN PRN Reason: Hypoglycemia Heparin Sodium (Porcine) (Heparin Na) 5,000 unit SC BID [facility] Last Admin: 08/19/17 11:52 Dose: 5,000 units Hydralazine HCl (Apresoline) 10 mg IV Q4H PRN PRN PRN Reason: SBP > 160 Hydromorphone HCl (Dilaudid) 2 - 4 mg PO Q4H PRN PRN PRN Reason: SEVERE PAIN (6-10/10) Last Admin: 08/19/17 01:48 Dose: 4 mg Sodium Chloride () 250 mls @ 15 mls/hr IV .[id number] PRN PRN Reason: SALINE FLUSH Last Admin: 08/17/17 22:18 Dose: 15 mls/hr Insulin Aspart (Novolog Flexpen ([facility])) 0 units SC ACHS [facility] PRN Reason: Protocol Last Admin: 08/19/17 13:25 Dose: 2 u Insulin Detemir (Levemir ([facility])) 5 units SC QHS [facility] Last Admin: 08/18/17 23:01 Dose: 5 u Lisinopril (Zestril) 20 mg PO DAILY [facility] Last Admin: 08/19/17 11:39 Dose: 20 mg Magnesium Hydroxide (Milk Of Magnesia) 30 ml PO DAILY PRN PRN PRN Reason: Constipation Metoprolol Tartrate (Lopressor (Beta Chang)) 5 mg IV Q6H PRN PRN PRN Reason: SBP > 160 Last Admin: 08/13/17 04:14 Dose: 5 mg Metronidazole (Flagyl) 500 mg PO TID [facility] Last Admin: 08/19/17 06:23 Dose: 500 mg Morphine Sulfate (Morphine) 4 mg IV Q3H PRN PRN PRN Reason: SEVERE PAIN (6-10/10) Last Admin: 08/19/17 10:53 Dose: 4 mg Nicotine (Nicoderm Cq (Pbkc)) 7 mg TRANSDERM. DAILY [facility] Last Admin: 08/19/17 11:38 Dose: Not Given Nutritional Formula (Nepro Carb Steady) 120 ml PO 4X/DAY [facility] Last Admin: 08/19/17 11:52 Dose: 120 ml Ondansetron HCl (Zofran) 4 mg IV Q8H PRN PRN PRN Reason: NAUSEA Last Admin: 08/18/17 21:06 Dose: 4 mg Pantoprazole Sodium (Protonix) 40 mg PO DAILY [facility] Last Admin: 08/19/17 11:39 Dose: 40 mg Promethazine HCl (Phenergan (Ll)) 12.5 mg IV Q6H PRN PRN PRN Reason: NAUSEA/VOMITING Last Admin: 08/17/17 22:16 Dose: 12.5 mg Sodium Bicarbonate (Sodium Bicarbonate) 650 mg PO MOWEFR [facility] Last Admin: 08/18/17 09:22 Dose: 650 mg Sodium Chloride () 5 - 30 ml IV UD PRN PRN Reason: SALINE FLUSH Last Admin: 08/18/17 21:07 Dose: 10 ml Vancomycin HCl () 1 lab MISCELL. MoWeFr@0600 [facility] Last Admin: 08/18/17 07:26 Dose: 1 lab Vancomycin HCl (Vancomycin Renal/Hd Dosing) 1 unit MISCELL. MoWeFr@0800 [facility] Last Admin: 08/18/17 09:22 Dose: Not Given Assessment/Plan Active and Suspected Problems ? Early small bowel obstruction (Acute) Possible Infectious Colitis (Acute) Abdominal pain (Acute) Inflammation of small intestine (Acute) 1. Pilonidal cyst: Discussed with Dr. Munroe. States that it was very extensive and almost to the point of involving the anal sphincter. H status post diverting colostomy he is also recommended that patient go to a facility afterwards for more proper wound care. Discussed with case management who states that the patient would not qualify for [facility] his vision was never in the ICU, plan is for the patient to go to [facility] when she is medically stable.. So we will look into senior living facilities at some point colostomy is performed. Continue with antibiotics. Will request infectious disease consult in regards to lengthen course of antibiotics. 2. Small bowel obstruction: Resolved. 3. End-stage renal disease on hemodialysis. 4. DVT prophylaxis with Lovenox.. 5. Anemia: Stable continue to monitor. No need for transfusions at this time. Code Visit Inpatient E&M: [id number] [facility] Hosp L2
--- NOTE | 2017-08-19 13:34 | PN_ITS ---
Patient Problems: Active and Suspected Problems ? Early small bowel obstruction (Acute) Possible Infectious Colitis (Acute) Abdominal pain (Acute) Inflammation of small intestine (Acute) Subjective: Some nausea today and abdominal pain. Not really tolerating diets. Vitals/I&O's: Vital Signs Temp Pulse Resp BP Pulse Ox 36.7 C 65 20 H 121/59 H 96 08/19/17 09:00 08/19/17 09:00 08/19/17 09:00 08/19/17 09:00 08/19/17 11:45 Oxygen Flow Rate 3 Oxygen Delivery Method Nasal Cannula Weight: 93.9 kg Body Mass Index (BMI) 33.8 Finger Stick Blood Glucose 118 Intake and Output for Last 24 Hours 08/17/17 08/18/17 08/19/17 23:59 23:59 23:59 Intake Total 1851 / 1851 1545 / 1545 806 / 806 Output Total 300 / 300 6150 / 6150 Balance 1551 / 1551 -4605 / -4605 806 / 806 General: Alert, Cooperative, No apparent distress HEENT: Atraumatic, Normocephalic Neck: No Nodes, Thyroid Normal Size and Texture Lungs: Clear to auscultation, Normal air movement, No rhonchi, No wheeze Cardiovascular: Regular rate, Regular Rhythm, Normal S1, Normal S2, No murmurs Abdomen: Distended, - - Late red serous discharge from the ostomy Extremities: No edema, No Calf Tenderness Psych/Mental Status: Normal Affect, Appropriate Microbiology Past 72 Hours 08/15/17 11:19 Tissue - Pilondial Gram Stain - Final 08/15/17 11:19 Tissue - Pilondial Wound Culture - Final Enterococcus avium Escherichia coli 08/15/17 11:19 Tissue - Pilondial Anaerobic Culture - Preliminary Checking for anaerobes, further studies to follow. Laboratory Results 08/18/17 16:56: POC Glucose 168 H 08/18/17 22:58: POC Glucose 180 H 08/19/17 06:20: POC Glucose 159 H 08/19/17 06:30: WBC 7.4, RBC 2.51 L, Hgb 8.0 L, Hct 25.1 L, MCV 100.0 H, MCH 31.9, MCHC 31.9 L, RDW 15.9 H, RDW Differential 56.0 H, Plt Count 140 L, MPV 8.8 , Immature Gran % (Auto) 1.100 H, Neut % (Auto) 75.7 H, Lymph % (Auto) 11.1 L, [place] % (Auto) 9.5, Eos % (Auto) 2.2, Baso % (Auto) 0.4, Absolute Neuts (auto) 5.6, Absolute Lymphs (auto) 0.82 L, Total Counted Not Reportable 08/19/17 06:30: Sodium 131 L, Potassium 3.5, Chloride 92 L, Carbon Dioxide 31.0 , Anion Gap 8, BUN 21 H, Creatinine 5.58 H, Estim Creat Clear Calc 12.17, Est GFR (MDRD) Af Amer 11 L, Est GFR (MDRD) Non-Af 9 L, BUN/Creatinine Ratio 3.8 L, Glucose 160 H, Calcium 8.3 L 08/19/17 13:23: POC Glucose 214 H Current Medications Acetaminophen (Tylenol) 650 mg PO Q6H PRN PRN PRN Reason: MILD PAIN (-09/30) Last Admin: 08/19/17 01:48 Dose: 650 mg Alprazolam (Xanax) 0.5 mg PO TID PRN PRN PRN Reason: AGITATION Last Admin: 08/17/17 21:16 Dose: 0.5 mg Aspirin (Aspirin, Baby) 81 mg PO DAILY@0800 [facility] Last Admin: 08/19/17 09:08 Dose: 81 mg Calcium Acetate (Phoslo Gel Cap) 667 mg PO TIDCM [facility] Last Admin: 08/19/17 13:26 Dose: 667 mg Carvedilol (Coreg) 25 mg PO BID [facility] Last Admin: 08/19/17 11:39 Dose: 25 mg Dextrose (D50w Syringe) 0 gm IV X1 PRN; Protocol PRN Reason: Hypoglycemia Diazepam (Valium) 5 mg PO BID PRN PRN PRN Reason: SPASMS Last Admin: 08/18/17 18:55 Dose: 5 mg Diltiazem HCl (Cardizem Cd) 240 mg PO DAILY [facility] Last Admin: 08/19/17 11:39 Dose: 240 mg Glucagon () 1 mg IM .X1 PRN PRN Reason: Hypoglycemia Heparin Sodium (Porcine) (Heparin Na) 5,000 unit SC BID [facility] Last Admin: 08/19/17 11:52 Dose: 5,000 units Hydralazine HCl (Apresoline) 10 mg IV Q4H PRN PRN PRN Reason: SBP > 160 Hydromorphone HCl (Dilaudid) 2 - 4 mg PO Q4H PRN PRN PRN Reason: SEVERE PAIN (6-10/10) Last Admin: 08/19/17 01:48 Dose: 4 mg Sodium Chloride () 250 mls @ 15 mls/hr IV .[id number] PRN PRN Reason: SALINE FLUSH Last Admin: 08/17/17 22:18 Dose: 15 mls/hr Insulin Aspart (Novolog Flexpen ([facility])) 0 units SC ACHS [facility] PRN Reason: Protocol Last Admin: 08/19/17 13:25 Dose: 2 u Insulin Detemir (Levemir ([facility])) 5 units SC QHS [facility] Last Admin: 08/18/17 23:01 Dose: 5 u Lisinopril (Zestril) 20 mg PO DAILY [facility] Last Admin: 08/19/17 11:39 Dose: 20 mg Magnesium Hydroxide (Milk Of Magnesia) 30 ml PO DAILY PRN PRN PRN Reason: Constipation Metoprolol Tartrate (Lopressor (Beta Chang)) 5 mg IV Q6H PRN PRN PRN Reason: SBP > 160 Last Admin: 08/13/17 04:14 Dose: 5 mg Metronidazole (Flagyl) 500 mg PO TID [facility] Last Admin: 08/19/17 06:23 Dose: 500 mg Morphine Sulfate (Morphine) 4 mg IV Q3H PRN PRN PRN Reason: SEVERE PAIN (6-10/10) Last Admin: 08/19/17 10:53 Dose: 4 mg Nicotine (Nicoderm Cq (Pbkc)) 7 mg TRANSDERM. DAILY [facility] Last Admin: 08/19/17 11:38 Dose: Not Given Nutritional Formula (Nepro Carb Steady) 120 ml PO 4X/DAY [facility] Last Admin: 08/19/17 11:52 Dose: 120 ml Ondansetron HCl (Zofran) 4 mg IV Q8H PRN PRN PRN Reason: NAUSEA Last Admin: 08/18/17 21:06 Dose: 4 mg Pantoprazole Sodium (Protonix) 40 mg PO DAILY [facility] Last Admin: 08/19/17 11:39 Dose: 40 mg Promethazine HCl (Phenergan (Ll)) 12.5 mg IV Q6H PRN PRN PRN Reason: NAUSEA/VOMITING Last Admin: 08/17/17 22:16 Dose: 12.5 mg Sodium Bicarbonate (Sodium Bicarbonate) 650 mg PO MOWEFR [facility] Last Admin: 08/18/17 09:22 Dose: 650 mg Sodium Chloride () 5 - 30 ml IV UD PRN PRN Reason: SALINE FLUSH Last Admin: 08/18/17 21:07 Dose: 10 ml Vancomycin HCl () 1 lab MISCELL. MoWeFr@0600 [facility] Last Admin: 08/18/17 07:26 Dose: 1 lab Vancomycin HCl (Vancomycin Renal/Hd Dosing) 1 unit MISCELL. MoWeFr@0800 [facility] Last Admin: 08/18/17 09:22 Dose: Not Given Assessment/Plan Active and Suspected Problems ? Early small bowel obstruction (Acute) Possible Infectious Colitis (Acute) Abdominal pain (Acute) Inflammation of small intestine (Acute) 1. Pilonidal cyst: Discussed with Dr. Munroe. States that it was very extensive and almost to the point of involving the anal sphincter. H status post diverting colostomy he is also recommended that patient go to a facility afterwards for more proper wound care. Discussed with case management who states that the patient would not qualify for [facility] his vision was never in the ICU, plan is for the patient to go to [facility] when she is medically stable.. So we will look into group home facilities at some point colostomy is performed. Continue with antibiotics. Will request infectious disease consult in regards to lengthen course of antibiotics. 2. Small bowel obstruction: Resolved. 3. End-stage renal disease on hemodialysis. 4. DVT prophylaxis with Lovenox.. 5. Anemia: Stable continue to monitor. No need for transfusions at this time. Code Visit Inpatient E&M: 83395 [facility] Hosp L2
[2017-08-19 18:31] LABS: Bedside Glucose 167 mg/dL (70-110)
[2017-08-19] MEDS: 0.9% NaCl Peripheral Flush Adult/Peds IV (22:19)
[2017-08-19 22:21] LABS: Bedside Glucose 193 mg/dL (70-110)
[2017-08-20] VITALS (11 sets, daily range): BP systolic 110–140; BP diastolic 43–65; PULSE 68–77; RESP 16–18; TEMP 36.6–37.4; O2SAT 92–98
--- NOTE | 2017-08-20 03:30 | NURSING ---
DRSG FALLING APART. BETADINE SOAKED KERLIX PLACED IN WOUND AND COVERED BY ABDS. PT TOLERATED WELL.
[2017-08-20] MEDS: metroNIDAZOLE 500 MG Tablet PO ×3 (06:18→22:12)
[2017-08-20] MEDS: HYDROmorphone 2 MG TABLET PO ×3 (06:18→22:16)
[2017-08-20 06:26] LABS: Absolute Lymphocyte Count 0.69 X10^3/ul (0.83-4.51); Absolute Neutrophil Count 5.9 X10^3/uL (2.0-7.7); Basophil# 0.01 X10^3/uL; Basophil% 0.1 % (0-1); Eosinophil# 0.13 X10^3/uL; Eosinophils% 1.8 % (0-5); Hematocrit 21.7 % (37-47); Hemoglobin 7.1 g/dl (12.0-15.0); Lymphocyte # 0.69 X10^3/ul (4.0); Lymphocyte % 9.6 % (19-41); Mean Corp Hgb Conc 32.7 g/gl (32-36); Mean Corpuscular Hgb 31.6 pg (27.0-32.0); Mean Corpuscular Volume 96.4 fL (81-99); Mean Platelet Vol. 8.7 fl (6.2-12.0); Monocyte# 0.48 X10^3/uL; Monocyte% 6.7 % (0-10); Neutrophil # 5.85 X10^3/uL (2.7-7.7); Neutrophil % 81.2 % (47-70); Platelet Count 120 K/mm3 (150-450); RBC Distribution Width SD 56.2 fl (35.1-43.9); Red Blood Count 2.25 M/mm3 (4.2-5.4); White Blood Count 7.2 K/mm3 (4.4-11.0)
[2017-08-20 06:26] LABS: Bedside Glucose 160 mg/dL (70-110)
[2017-08-20 06:33] LABS: POSITIVE COUNT NO; POSITIVE DIFFERENTIAL NO; POSITIVE MORPHOLOGY NO
[2017-08-20 06:47] LABS: Anion Gap 10 (5-15); BUN 33 mg/dL (7-18); BUN/Creat Ratio 4.4 RATIO (10-20); Calcium,Total 8.1 mg/dL (8.5-10.1); Chloride 92 mmol/L (98-107); Creatinine, Serum 7.48 mg/dL (0.55-1.02); EST Glomerular Filtration Rate 6 mL/min (>60); Est Glom Filt Rate - Afr Amer 8 mL/min (>60); Estimated Creatinine Clearance 9.08 ml/min; Glucose 153 mg/dL (70-110); Potassium 3.5 mmol/L (3.5-5.1); Sodium Level 131 mmol/L (136-145)
--- NOTE | 2017-08-20 10:15 | PN.SURG_ITS ---
Patient Problems: Active and Suspected Problems ? Early small bowel obstruction (Acute) Possible Infectious Colitis (Acute) Abdominal pain (Acute) Inflammation of small intestine (Acute) Subjective: patient has minimal abdominal pain, mostly complaint of pain at decubitus ulcer site has had gas in bag is hungry, wants food to eat - Physical Exam General: Alert Oral: Moist Mucosa Neck: Supple Lungs: Normal air movement Abdomen: Bowel Sounds Present, Soft, - - stoma is pink and healthy, gas in bag Vital Signs Temp Pulse Resp BP Pulse Ox 97.8 F 74 18 110/44 L 98 08/20/17 08:54 08/20/17 08:54 08/20/17 08:54 08/20/17 08:54 08/20/17 08:54 Oxygen Flow Rate 3 Oxygen Delivery Method Nasal Cannula Weight: 95.4 kg Body Mass Index (BMI) 33.8 Finger Stick Blood Glucose 118 Intake and Output for Last 24 Hours 08/18/17 08/19/17 08/20/17 23:59 23:59 23:59 Intake Total 1545 / 1545 1668 / 1668 Output Total 6150 / 6150 100 / 100 Balance -4605 / -4605 1568 / 1568 Microbiology Past 72 Hours 08/15/17 11:19 Gram Stain - Final Tissue - Pilondial Wound Culture - Final Enterococcus avium Escherichia coli Anaerobic Culture - Preliminary Checking for anaerobes, further studies to follow. Laboratory Tests Past 24 Hrs 08/20/17 08/20/17 08/20/17 05:50 05:50 07:07 WBC 7.2 RBC 2.25 L Hgb 7.1 L Hct 21.7 L MCV 96.4 MCH 31.6 MCHC 32.7 RDW 16.0 H RDW Differential 56.2 H Plt Count 120 L MPV 8.7 Immature Gran % (Auto) 0.600 Neut % (Auto) 81.2 H Lymph % (Auto) 9.6 L [place] % (Auto) 6.7 Eos % (Auto) 1.8 Baso % (Auto) 0.1 Absolute Neuts (auto) 5.9 Absolute Lymphs (auto) 0.69 L Total Counted Not Reportable Sodium 131 L Potassium 3.5 Chloride 92 L Carbon Dioxide 29.0 Anion Gap 10 BUN 33 H Creatinine 7.48 H* Estim Creat Clear Calc 9.08 Est GFR (MDRD) Af Amer 8 L Est GFR (MDRD) Non-Af 6 L BUN/Creatinine Ratio 4.4 L Glucose 153 H Calcium 8.1 L Blood Type Pending Antibody Screen Pending Crossmatch See Detail POC Glucose 08/20/17 08/19/17 08/19/17 06:17 21:49 18:09 POC Glucose 160 H 193 H 167 H 08/19/17 13:23 POC Glucose 214 H Assessment/Plan Active and Suspected Problems ? Early small bowel obstruction (Acute) Possible Infectious Colitis (Acute) Abdominal pain (Acute) Inflammation of small intestine (Acute) POD # 3 s/p laparoscopic transverse loop colostomy. Patient denies nausea or other difficulties. States she is hungry. Tolerating clear liquids well. Minimal succus output from the stoma currently. will advance diet - clears until stoma output. enterostomal therapy to assist in stoma management. I have encouraged ambulation
[2017-08-20] MEDS: dilTIAZem CD 240 MG Capsule PO (10:27)
[2017-08-20] MEDS: Calcium Acetate 667 MG Capsule PO ×2 (10:27→16:12)
[2017-08-20] MEDS: Lisinopril 20 MG Tablet PO (10:32)
[2017-08-20] MEDS: Pantoprazole Sodium 40 MG Tablet PO (10:32)
[2017-08-20] MEDS: Aspirin 81 MG TAB.CHEW PO (10:32)
[2017-08-20] MEDS: Carvedilol 25 MG Tablet PO ×2 (10:32→22:16)
[2017-08-20] MEDS: Nepro Liquid 120 ML LIQUID PO ×4 (10:33→22:17)
[2017-08-20 11:36] LABS: Bedside Glucose 186 mg/dL (70-110)
--- NOTE | 2017-08-20 12:43 | PCM.PN.HOSP ---
Patient Problems: Active and Suspected Problems ? Early small bowel obstruction (Acute) Possible Infectious Colitis (Acute) Abdominal pain (Acute) Inflammation of small intestine (Acute) Subjective: Abdomen feeling well. Tolerating diet so far. Vitals/I&O's: Vital Signs Temp Pulse Resp BP Pulse Ox 36.8 C 76 18 139/60 H 93 08/20/17 12:37 08/20/17 12:37 08/20/17 12:37 08/20/17 12:37 08/20/17 12:37 Oxygen Flow Rate 3 Oxygen Delivery Method Nasal Cannula Weight: 95.4 kg Body Mass Index (BMI) 33.8 Finger Stick Blood Glucose 118 Intake and Output for Last 24 Hours 08/18/17 08/19/17 08/20/17 23:59 23:59 23:59 Intake Total 1545 / 1545 1668 / 1668 0 / 0 Output Total 6150 / 6150 100 / 100 Balance -4605 / -4605 1568 / 1568 0 / 0 General: Alert, Cooperative, No apparent distress HEENT: Atraumatic, Normocephalic Neck: No Nodes, Thyroid Normal Size and Texture Lungs: Clear to auscultation, Normal air movement, No rhonchi, No wheeze Cardiovascular: Regular rate, Regular Rhythm, Normal S1, Normal S2, No murmurs Abdomen: Bowel Sounds Present, Soft, Non Tender, Non-Distended Extremities: No edema, No Calf Tenderness Psych/Mental Status: Normal Affect, Appropriate Microbiology Past 72 Hours 08/15/17 11:19 Tissue - Pilondial Gram Stain - Final 08/15/17 11:19 Tissue - Pilondial Wound Culture - Final Enterococcus avium Escherichia coli 08/15/17 11:19 Tissue - Pilondial Anaerobic Culture - Preliminary Checking for anaerobes, further studies to follow. Laboratory Results 08/14/17 14:25: Crossmatch See Detail 08/19/17 13:23: POC Glucose 214 H 08/19/17 18:09: POC Glucose 167 H 08/19/17 21:49: POC Glucose 193 H 08/20/17 05:50: WBC 7.2, RBC 2.25 L, Hgb 7.1 L, Hct 21.7 L, MCV 96.4, MCH 31.6, MCHC 32.7, RDW 16.0 H, RDW Differential 56.2 H, Plt Count 120 L, MPV 8.7, Immature Gran % (Auto) 0.600, Neut % (Auto) 81.2 H, Lymph % (Auto) 9.6 L, [place] % (Auto) 6.7, Eos % (Auto) 1.8, Baso % (Auto) 0.1, Absolute Neuts (auto) 5.9, Absolute Lymphs (auto) 0.69 L, Total Counted Not Reportable 08/20/17 05:50: Sodium 131 L, Potassium 3.5, Chloride 92 L, Carbon Dioxide 29.0, Anion Gap 10, BUN 33 H, Creatinine 7.48 H*, Estim Creat Clear Calc 9.08, Est GFR (MDRD) Af Amer 8 L, Est GFR (MDRD) Non-Af 6 L, BUN/Creatinine Ratio 4.4 L, Glucose 153 H, Calcium 8.1 L 08/20/17 06:17: POC Glucose 160 H 08/20/17 07:07: Blood Type A NEGATIVE, Antibody Screen POSITIVE H, Antibody Identification ANTI-D, Crossmatch See Detail 08/20/17 11:32: POC Glucose 186 H Current Medications Acetaminophen (Tylenol) 650 mg PO Q6H PRN PRN PRN Reason: MILD PAIN (1-310) Last Admin: 08/19/17 01:48 Dose: 650 mg Alprazolam (Xanax) 0.5 mg PO TID PRN PRN PRN Reason: AGITATION Last Admin: 08/17/17 21:16 Dose: 0.5 mg Aspirin (Aspirin, Baby) 81 mg PO DAILY@0800 [facility] Last Admin: 08/20/17 10:32 Dose: 81 mg Calcium Acetate (Phoslo Gel Cap) 667 mg PO TIDCM [facility] Last Admin: 08/20/17 11:10 Dose: Not Given Carvedilol (Coreg) 25 mg PO BID [facility] Last Admin: 08/20/17 10:32 Dose: 25 mg Dextrose (D50w Syringe) 0 gm IV X1 PRN; Protocol PRN Reason: Hypoglycemia Diazepam (Valium) 5 mg PO BID PRN PRN PRN Reason: SPASMS Last Admin: 08/18/17 18:55 Dose: 5 mg Diltiazem HCl (Cardizem Cd) 240 mg PO DAILY [facility] Last Admin: 08/20/17 10:27 Dose: 240 mg Glucagon () 1 mg IM .X1 PRN PRN Reason: Hypoglycemia Heparin Sodium (Porcine) (Heparin Na) 5,000 unit SC BID [facility] Last Admin: 08/20/17 10:32 Dose: 5,000 units Hydralazine HCl (Apresoline) 10 mg IV Q4H PRN PRN PRN Reason: SBP > 160 Hydromorphone HCl (Dilaudid) 2 - 4 mg PO Q4H PRN PRN PRN Reason: SEVERE PAIN (6-10/10) Last Admin: 08/20/17 06:18 Dose: 4 mg Sodium Chloride () 250 mls @ 15 mls/hr IV .[id number] PRN PRN Reason: SALINE FLUSH Last Admin: 08/17/17 22:18 Dose: 15 mls/hr Insulin Aspart (Novolog Flexpen (Bk)) 0 units SC ACHS [facility] PRN Reason: Protocol Last Admin: 08/20/17 12:28 Dose: 1 u Insulin Detemir (Levemir (Bk)) 5 units SC QHS [facility] Last Admin: 08/19/17 21:51 Dose: 5 u Lisinopril (Zestril) 20 mg PO DAILY [facility] Last Admin: 08/20/17 10:32 Dose: 20 mg Magnesium Hydroxide (Milk Of Magnesia) 30 ml PO DAILY PRN PRN PRN Reason: Constipation Metoprolol Tartrate (Lopressor (Beta Chang)) 5 mg IV Q6H PRN PRN PRN Reason: SBP > 160 Last Admin: 08/13/17 04:14 Dose: 5 mg Metronidazole (Flagyl) 500 mg PO TID [facility] Last Admin: 08/20/17 06:18 Dose: 500 mg Morphine Sulfate (Morphine) 4 mg IV Q3H PRN PRN PRN Reason: SEVERE PAIN (6-10/10) Last Admin: 08/19/17 22:18 Dose: 4 mg Nicotine (Nicoderm Cq (Pbkc)) 7 mg TRANSDERM. DAILY [facility] Last Admin: 08/20/17 10:28 Dose: 7 mg Nutritional Formula (Nepro Carb Steady) 120 ml PO 4X/DAY [facility] Last Admin: 08/20/17 10:33 Dose: 120 ml Ondansetron HCl (Zofran) 4 mg IV Q8H PRN PRN PRN Reason: NAUSEA Last Admin: 08/18/17 21:06 Dose: 4 mg Pantoprazole Sodium (Protonix) 40 mg PO DAILY [facility] Last Admin: 08/20/17 10:32 Dose: 40 mg Promethazine HCl (Phenergan (Ll)) 12.5 mg IV Q6H PRN PRN PRN Reason: NAUSEA/VOMITING Last Admin: 08/17/17 22:16 Dose: 12.5 mg Sodium Bicarbonate (Sodium Bicarbonate) 650 mg PO MOWEFR [facility] Last Admin: 08/18/17 09:22 Dose: 650 mg Sodium Chloride () 5 - 30 ml IV UD PRN PRN Reason: SALINE FLUSH Last Admin: 08/19/17 22:19 Dose: 10 ml Vancomycin HCl () 1 lab MISCELL. MoWeFr@0600 [facility] Last Admin: 08/18/17 07:26 Dose: 1 lab Vancomycin HCl (Vancomycin Renal/Hd Dosing) 1 unit MISCELL. MoWeFr@0800 [facility] Last Admin: 08/18/17 09:22 Dose: Not Given Assessment/Plan Active and Suspected Problems ? Early small bowel obstruction (Acute) Possible Infectious Colitis (Acute) Abdominal pain (Acute) Inflammation of small intestine (Acute) [id number] white female initially presented with a small bowel obstruction. Subsequently found to have some drainage on her backside. Patient had an infected pilonidal cyst that grew out several organisms. Patient was taken to surgery on the . Given the extensive nature of the resection and the fact that almost involved her anal sphincter is recommend patient had a diverting colostomy, which was performed on . Patient has remained stable. Tentative plan is to patient go to [facility] on August 21. 1. Pilonidal cyst: Discussed with Dr. Munroe. States that it was very extensive and almost to the point of involving the anal sphincter. status post diverting colostomy he is also recommended that patient go to a facility afterwards for more proper wound care. Discussed with case management who states that the patient would not qualify for [facility] his vision was never in the ICU, plan is for the patient to go to [facility] when she is medically stable. She did continue with oral Flagyl, IV vancomycin and IV ceftazidime with dialysis. Stop date will be August 30. 2. Small bowel obstruction: Resolved. This is what actually brought the patient into the hospital in the first place. 3. End-stage renal disease on hemodialysis. 4. DVT prophylaxis SCDs 5. Anemia: Ordered 1 unit of packed blood cells on the . Monitor Code Visit Inpatient E&M: 54791 Subs Hosp L2
--- NOTE | 2017-08-20 12:48 | PN_ITS ---
Patient Problems: Active and Suspected Problems ? Early small bowel obstruction (Acute) Possible Infectious Colitis (Acute) Abdominal pain (Acute) Inflammation of small intestine (Acute) Subjective: Abdomen feeling well. Tolerating diet so far. Vitals/I&O's: Vital Signs Temp Pulse Resp BP Pulse Ox 36.8 C 76 18 139/60 H 93 08/20/17 12:37 08/20/17 12:37 08/20/17 12:37 08/20/17 12:37 08/20/17 12:37 Oxygen Flow Rate 3 Oxygen Delivery Method Nasal Cannula Weight: 95.4 kg Body Mass Index (BMI) 33.8 Finger Stick Blood Glucose 118 Intake and Output for Last 24 Hours 08/18/17 08/19/17 08/20/17 23:59 23:59 23:59 Intake Total 1545 / 1545 1668 / 1668 0 / 0 Output Total 6150 / 6150 100 / 100 Balance -4605 / -4605 1568 / 1568 0 / 0 General: Alert, Cooperative, No apparent distress HEENT: Atraumatic, Normocephalic Neck: No Nodes, Thyroid Normal Size and Texture Lungs: Clear to auscultation, Normal air movement, No rhonchi, No wheeze Cardiovascular: Regular rate, Regular Rhythm, Normal S1, Normal S2, No murmurs Abdomen: Bowel Sounds Present, Soft, Non Tender, Non-Distended Extremities: No edema, No Calf Tenderness Psych/Mental Status: Normal Affect, Appropriate Microbiology Past 72 Hours 08/15/17 11:19 Tissue - Pilondial Gram Stain - Final 08/15/17 11:19 Tissue - Pilondial Wound Culture - Final Enterococcus avium Escherichia coli 08/15/17 11:19 Tissue - Pilondial Anaerobic Culture - Preliminary Checking for anaerobes, further studies to follow. Laboratory Results 08/14/17 14:25: Crossmatch See Detail 08/19/17 13:23: POC Glucose 214 H 08/19/17 18:09: POC Glucose 167 H 08/19/17 21:49: POC Glucose 193 H 08/20/17 05:50: WBC 7.2, RBC 2.25 L, Hgb 7.1 L, Hct 21.7 L, MCV 96.4, MCH 31.6, MCHC 32.7, RDW 16.0 H, RDW Differential 56.2 H, Plt Count 120 L, MPV 8.7, Immature Gran % (Auto) 0.600, Neut % (Auto) 81.2 H, Lymph % (Auto) 9.6 L, [place] % (Auto) 6.7, Eos % (Auto) 1.8, Baso % (Auto) 0.1, Absolute Neuts (auto) 5.9, Absolute Lymphs (auto) 0.69 L, Total Counted Not Reportable 08/20/17 05:50: Sodium 131 L, Potassium 3.5, Chloride 92 L, Carbon Dioxide 29.0 , Anion Gap 10, BUN 33 H, Creatinine 7.48 H*, Estim Creat Clear Calc 9.08, Est GFR (MDRD) Af Amer 8 L, Est GFR (MDRD) Non-Af 6 L, BUN/Creatinine Ratio 4.4 L, Glucose 153 H, Calcium 8.1 L 08/20/17 06:17: POC Glucose 160 H 08/20/17 07:07: Blood Type A NEGATIVE, Antibody Screen POSITIVE H, Antibody Identification ANTI-D, Crossmatch See Detail 08/20/17 11:32: POC Glucose 186 H Current Medications Acetaminophen (Tylenol) 650 mg PO Q6H PRN PRN PRN Reason: MILD PAIN (1-310) Last Admin: 08/19/17 01:48 Dose: 650 mg Alprazolam (Xanax) 0.5 mg PO TID PRN PRN PRN Reason: AGITATION Last Admin: 08/17/17 21:16 Dose: 0.5 mg Aspirin (Aspirin, Baby) 81 mg PO DAILY@0800 [facility] Last Admin: 08/20/17 10:32 Dose: 81 mg Calcium Acetate (Phoslo Gel Cap) 667 mg PO TIDCM [facility] Last Admin: 08/20/17 11:10 Dose: Not Given Carvedilol (Coreg) 25 mg PO BID [facility] Last Admin: 08/20/17 10:32 Dose: 25 mg Dextrose (D50w Syringe) 0 gm IV X1 PRN; Protocol PRN Reason: Hypoglycemia Diazepam (Valium) 5 mg PO BID PRN PRN PRN Reason: SPASMS Last Admin: 08/18/17 18:55 Dose: 5 mg Diltiazem HCl (Cardizem Cd) 240 mg PO DAILY [facility] Last Admin: 08/20/17 10:27 Dose: 240 mg Glucagon () 1 mg IM .X1 PRN PRN Reason: Hypoglycemia Heparin Sodium (Porcine) (Heparin Na) 5,000 unit SC BID [facility] Last Admin: 08/20/17 10:32 Dose: 5,000 units Hydralazine HCl (Apresoline) 10 mg IV Q4H PRN PRN PRN Reason: SBP > 160 Hydromorphone HCl (Dilaudid) 2 - 4 mg PO Q4H PRN PRN PRN Reason: SEVERE PAIN (6-10/10) Last Admin: 08/20/17 06:18 Dose: 4 mg Sodium Chloride () 250 mls @ 15 mls/hr IV .[id number] PRN PRN Reason: SALINE FLUSH Last Admin: 08/17/17 22:18 Dose: 15 mls/hr Insulin Aspart (Novolog Flexpen (Bk)) 0 units SC ACHS [facility] PRN Reason: Protocol Last Admin: 08/20/17 12:28 Dose: 1 u Insulin Detemir (Levemir (Bk)) 5 units SC QHS [facility] Last Admin: 08/19/17 21:51 Dose: 5 u Lisinopril (Zestril) 20 mg PO DAILY [facility] Last Admin: 08/20/17 10:32 Dose: 20 mg Magnesium Hydroxide (Milk Of Magnesia) 30 ml PO DAILY PRN PRN PRN Reason: Constipation Metoprolol Tartrate (Lopressor (Beta Chang)) 5 mg IV Q6H PRN PRN PRN Reason: SBP > 160 Last Admin: 08/13/17 04:14 Dose: 5 mg Metronidazole (Flagyl) 500 mg PO TID [facility] Last Admin: 08/20/17 06:18 Dose: 500 mg Morphine Sulfate (Morphine) 4 mg IV Q3H PRN PRN PRN Reason: SEVERE PAIN (6-10/10) Last Admin: 08/19/17 22:18 Dose: 4 mg Nicotine (Nicoderm Cq (Pbkc)) 7 mg TRANSDERM. DAILY [facility] Last Admin: 08/20/17 10:28 Dose: 7 mg Nutritional Formula (Nepro Carb Steady) 120 ml PO 4X/DAY [facility] Last Admin: 08/20/17 10:33 Dose: 120 ml Ondansetron HCl (Zofran) 4 mg IV Q8H PRN PRN PRN Reason: NAUSEA Last Admin: 08/18/17 21:06 Dose: 4 mg Pantoprazole Sodium (Protonix) 40 mg PO DAILY [facility] Last Admin: 08/20/17 10:32 Dose: 40 mg Promethazine HCl (Phenergan (Ll)) 12.5 mg IV Q6H PRN PRN PRN Reason: NAUSEA/VOMITING Last Admin: 08/17/17 22:16 Dose: 12.5 mg Sodium Bicarbonate (Sodium Bicarbonate) 650 mg PO MOWEFR [facility] Last Admin: 08/18/17 09:22 Dose: 650 mg Sodium Chloride () 5 - 30 ml IV UD PRN PRN Reason: SALINE FLUSH Last Admin: 08/19/17 22:19 Dose: 10 ml Vancomycin HCl () 1 lab MISCELL. MoWeFr@0600 [facility] Last Admin: 08/18/17 07:26 Dose: 1 lab Vancomycin HCl (Vancomycin Renal/Hd Dosing) 1 unit MISCELL. MoWeFr@0800 [facility] Last Admin: 08/18/17 09:22 Dose: Not Given Assessment/Plan Active and Suspected Problems ? Early small bowel obstruction (Acute) Possible Infectious Colitis (Acute) Abdominal pain (Acute) Inflammation of small intestine (Acute) [place] white female initially presented with a small bowel obstruction. Subsequently found to have some drainage on her backside. Patient had an infected pilonidal cyst that grew out several organisms. Patient was taken to surgery on the . Given the extensive nature of the resection and the fact that almost involved her anal sphincter is recommend patient had a diverting colostomy, which was performed on . Patient has remained stable. Tentative plan is to patient go to [facility] on August 21. 1. Pilonidal cyst: Discussed with Dr. Munroe. States that it was very extensive and almost to the point of involving the anal sphincter. status post diverting colostomy he is also recommended that patient go to a facility afterwards for more proper wound care. Discussed with case management who states that the patient would not qualify for [facility] his vision was never in the ICU, plan is for the patient to go to [facility] when she is medically stable. She did continue with oral Flagyl, IV vancomycin and IV ceftazidime with dialysis. Stop date will be August 30. 2. Small bowel obstruction: Resolved. This is what actually brought the patient into the hospital in the first place. 3. End-stage renal disease on hemodialysis. 4. DVT prophylaxis SCDs 5. Anemia: Ordered 1 unit of packed blood cells on the . Monitor Code Visit Inpatient E&M: 30352 Subs Hosp L2
[2017-08-20] MEDS: diazePAM 5 MG Tablet PO (15:15)
[2017-08-20 16:06] LABS: Bedside Glucose 205 mg/dL (70-110)
[2017-08-20] MEDS: 0.9% NaCl Peripheral Flush Adult/Peds IV ×2 (16:07→18:40)
[2017-08-20] MEDS: Ondansetron 4 MG/2 ML Vial IV (18:40)
[2017-08-20] MEDS: ALPRAZolam 0.5 MG Tablet PO (20:40)
[2017-08-20 22:16] LABS: Bedside Glucose 226 mg/dL (70-110)
[2017-08-21] MEDS: HYDROmorphone 2 MG TABLET PO ×4 (00:07→18:10)
[2017-08-21 02:15] VITALS: BP 151/75; PULSE 79; RESP 18; TEMP 36.9; O2SAT 92
[2017-08-21] MEDS: metroNIDAZOLE 500 MG Tablet PO ×2 (04:46→13:55)
[2017-08-21 06:20] LABS: Absolute Lymphocyte Count 0.72 X10^3/ul (0.83-4.51); Absolute Neutrophil Count 5.9 X10^3/uL (2.0-7.7); Basophil# 0.02 X10^3/uL; Basophil% 0.3 % (0-1); Eosinophil# 0.21 X10^3/uL; Eosinophils% 2.8 % (0-5); Hemoglobin 7.9 g/dl (12.0-15.0); Lymphocyte # 0.72 X10^3/ul (4.0); Lymphocyte % 9.6 % (19-41); Mean Corp Hgb Conc 31.6 g/gl (32-36); Mean Corpuscular Hgb 30.7 pg (27.0-32.0); Mean Corpuscular Volume 97.3 fL (81-99); Mean Platelet Vol. 8.6 fl (6.2-12.0); Monocyte# 0.62 X10^3/uL; Monocyte% 8.2 % (0-10); Neutrophil # 5.91 X10^3/uL (2.7-7.7); Neutrophil % 78.4 % (47-70); Platelet Count 165 K/mm3 (150-450); RBC Distribution Width CV 15.5 % (11.6-14.6); RBC Distribution Width SD 51.7 fl (35.1-43.9); Red Blood Count 2.57 M/mm3 (4.2-5.4); White Blood Count 7.5 K/mm3 (4.4-11.0)
[2017-08-21 06:29] LABS: POSITIVE COUNT NO; POSITIVE DIFFERENTIAL NO; POSITIVE MORPHOLOGY NO
[2017-08-21 06:41] LABS: Vancomycin, Random Level 16.2 ug/mL (0.0-15.0)
[2017-08-21 06:45] LABS: Bedside Glucose 127 mg/dL (70-110)
[2017-08-21 06:51] LABS: Anion Gap 12 (5-15); BUN 41 mg/dL (7-18); BUN/Creat Ratio 4.4 RATIO (10-20); Calcium,Total 7.7 mg/dL (8.5-10.1); Chloride 94 mmol/L (98-107); Creatinine, Serum 9.23 mg/dL (0.55-1.02); EST Glomerular Filtration Rate 5 mL/min (>60); Est Glom Filt Rate - Afr Amer 6 mL/min (>60); Estimated Creatinine Clearance 7.36 ml/min; Glucose 143 mg/dL (70-110); Potassium 3.5 mmol/L (3.5-5.1); Sodium Level 133 mmol/L (136-145)
--- NOTE | 2017-08-21 06:52 | NURSING ---
Critical lab value creatinine of 9.[address] Nava
[2017-08-21 07:58] VITALS: O2SAT 93
[2017-08-21 08:15] VITALS: BP 123/66; PULSE 74; RESP 18; TEMP 36.7; O2SAT 97
[2017-08-21] MEDS: Calcium Acetate 667 MG Capsule PO ×2 (08:32→18:09)
[2017-08-21] MEDS: Carvedilol 25 MG Tablet PO (08:32)
[2017-08-21] MEDS: Aspirin 81 MG TAB.CHEW PO (08:32)
[2017-08-21] MEDS: dilTIAZem CD 240 MG Capsule PO (08:32)
[2017-08-21] MEDS: Pantoprazole Sodium 40 MG Tablet PO (08:33)
[2017-08-21] MEDS: Lisinopril 20 MG Tablet PO (08:33)
[2017-08-21] MEDS: Sodium Bicarbonate 650 MG Tablet PO (08:33)
[2017-08-21] MEDS: Acetaminophen 325 MG Tablet 650 MG PO ×2 (08:43→20:03)
[2017-08-21 10:00] VITALS: RESP 18; O2SAT 95
--- NOTE | 2017-08-21 10:50 | PCM.PN.ID ---
Patient Problems: Active and Suspected Problems ? Early small bowel obstruction (Acute) Possible Infectious Colitis (Acute) Abdominal pain (Acute) Inflammation of small intestine (Acute) Subjective: Feeling ok, but still significant pain in abd. No fever. HD this AM. - Physical Exam General: Alert, Cooperative, No apparent distress Lungs: Clear to auscultation, Normal air movement Cardiovascular: Regular rate, Regular Rhythm Abdomen: Soft, Non-Distended Skin: No rashes Vital Signs Temp Pulse Resp BP Pulse Ox 98.1 F 74 18 123/66 H 97 08/21/17 08:15 08/21/17 08:15 08/21/17 08:15 08/21/17 08:15 08/21/17 08:15 Oxygen Flow Rate 2 Oxygen Delivery Method Nasal Cannula Weight: 98.2 kg Body Mass Index (BMI) 33.8 Finger Stick Blood Glucose 118 Intake and Output for Last 24 Hours 08/19/17 08/20/17 08/21/17 23:59 23:59 23:59 Intake Total 1668 / 1668 3190 / 3190 117 / 117 Output Total 100 / 100 3450 / 3450 50 / 50 Balance 1568 / 1568 -260 / -260 67 / 67 Microbiology Past 72 Hours 08/15/17 11:19 Gram Stain - Final Tissue - Pilondial Wound Culture - Final Enterococcus avium Escherichia coli Anaerobic Culture - Preliminary Checking for anaerobes, further studies to follow. Laboratory Tests Past 24 Hrs 08/14/17 08/20/17 08/21/17 14:25 07:07 05:44 WBC RBC Hgb Hct MCV MCH MCHC RDW RDW Differential Plt Count MPV Immature Gran % (Auto) Neut % (Auto) Lymph % (Auto) [place] % (Auto) Eos % (Auto) Baso % (Auto) Absolute Neuts (auto) Absolute Lymphs (auto) Total Counted Sodium Potassium Chloride Carbon Dioxide Anion Gap BUN Creatinine Estim Creat Clear Calc Est GFR (MDRD) Af Amer Est GFR (MDRD) Non-Af BUN/Creatinine Ratio Glucose Calcium Random Vancomycin 16.2 H Blood Type A NEGATIVE Antibody Screen POSITIVE H Antibody Identification ANTI-D Crossmatch See Detail See Detail 08/21/17 08/21/17 05:44 05:44 WBC 7.5 RBC 2.57 L Hgb 7.9 L Hct 25.0 L MCV 97.3 MCH 30.7 MCHC 31.6 L RDW 15.5 H RDW Differential 51.7 H Plt Count 165 MPV 8.6 Immature Gran % (Auto) 0.700 Neut % (Auto) 78.4 H Lymph % (Auto) 9.6 L [place] % (Auto) 8.2 Eos % (Auto) 2.8 Baso % (Auto) 0.3 Absolute Neuts (auto) 5.9 Absolute Lymphs (auto) 0.72 L Total Counted Not Reportable Sodium 133 L Potassium 3.5 Chloride 94 L Carbon Dioxide 27.0 Anion Gap 12 BUN 41 H Creatinine 9.23 H* Estim Creat Clear Calc 7.36 Est GFR (MDRD) Af Amer 6 L Est GFR (MDRD) Non-Af 5 L BUN/Creatinine Ratio 4.4 L Glucose 143 H Calcium 7.7 L Random Vancomycin Blood Type Antibody Screen Antibody Identification Crossmatch POC Glucose 08/21/17 08/20/17 08/20/17 06:42 22:09 16:01 POC Glucose 127 H 226 H 205 H 08/20/17 11:32 POC Glucose 186 H Route of nutrition/ use of supplements: [] Nutritional Intake: [] IV Site: [] Meyer Catheter: [] - Assessment/Plan Antibiotics: [] Assessment/Plan: [] Active and Suspected Problems ? Early small bowel obstruction (Acute) Possible Infectious Colitis (Acute) Abdominal pain (Acute) Inflammation of small intestine (Acute) Necrotizing buttock infection related to pilonidal cysts, extending to anal sphincter - Cxs with GPR, strep, ecoli, and enterococcus. Plan on discharge on po flagyl 500mg tid and iv vanc and ceftazidime 2gm dosed with HD. Stop date will be 08/30/17. Continue vanc/cefepime/flagyl while inpatient. ESRD Will follow. D/w pillowcase cleaner.
--- NOTE | 2017-08-21 10:50 | PCM.PN.BLA ---
Progress Note Seen during HD session. BP little low. I ordered to decrease UF to 3L Patient is complaining of nausea most probably related to opioid BQ 400, DQ 600 UF 3L BP 96/38 HR 67
[2017-08-21] MEDS: Lidocaine/Prilocaine HCl 5 GM Tube TOPICAL (12:26)
--- NOTE | 2017-08-21 13:12 | DIALYSIS ---
hemodialysis complete. pt tolerated fair. net uf 2500 ml. sbp range 90-117. luaf +thrill/bruit,
--- NOTE | 2017-08-21 13:39 | NURSING ---
Pt just finished with dialysis. patient requesting pain medication d/t abdominal pain. abdomen soft. colostomy functioning. there is a small amount of liquid brown stool noted in the appliance at this time. patient states the appliance has been emptied twice today. the stomal carissa remains in place. will discuss with Dr Zhang. The carissa will most likely be removed prior to discharge to detention. MALLORY Holland to medicate patient with PO Dilaudid. Will assess wound after medication has taken affect.
--- NOTE | 2017-08-21 13:44 | PCM.PROGNOTE ---
Patient Problems: Active and Suspected Problems ? Early small bowel obstruction (Acute) Possible Infectious Colitis (Acute) Abdominal pain (Acute) Inflammation of small intestine (Acute) Subjective: Pt has some pain in the buttocks. No f/c. No SOB/cough/vomiting/diarrhea. Pt undergoing dialysis. - Physical Exam General: Alert, Oriented x3, Cooperative HEENT: Atraumatic, PERRLA, EOMI, Normocephalic Neck: Supple, No JVD, Negative Carotid Bruits Lungs: Clear to auscultation, Normal air movement Cardiovascular: Regular rate, No murmurs Abdomen: Bowel Sounds Present, Soft, Non Tender Extremities: No edema, Capillary Refill Less than 3 Seconds Skin: No rashes, No breakdown Musculoskeletal: No Tenderness to Palpation of Joints or Extremities Neurological: Cranial nerves II-XII grossly intact Psych/Mental Status: Normal Affect, Appropriate, Alert and oriented to time, place, person, mood and affect Vital Signs Temp Pulse Resp BP Pulse Ox 98.1 F 74 18 123/66 H 97 08/21/17 08:15 08/21/17 08:15 08/21/17 08:15 08/21/17 08:15 08/21/17 08:15 Oxygen Flow Rate 2 Oxygen Delivery Method Nasal Cannula Weight: 98.2 kg Body Mass Index (BMI) 33.8 Finger Stick Blood Glucose 118 Intake and Output for Last 24 Hours 08/19/17 08/20/17 08/21/17 23:59 23:59 23:59 Intake Total 1668 / 1668 3190 / 3190 117 / 117 Output Total 100 / 100 3450 / 3450 2550 / 2550 Balance 1568 / 1568 -260 / -260 -2433 / -2433 Microbiology Past 72 Hours 08/15/17 11:19 Gram Stain - Final Tissue - Pilondial Wound Culture - Final Enterococcus avium Escherichia coli Anaerobic Culture - Preliminary Checking for anaerobes, further studies to follow. Laboratory Tests Past 24 Hrs 08/20/17 08/21/17 08/21/17 07:07 05:44 05:44 WBC 7.5 RBC 2.57 L Hgb 7.9 L Hct 25.0 L MCV 97.3 MCH 30.7 MCHC 31.6 L RDW 15.5 H RDW Differential 51.7 H Plt Count 165 MPV 8.6 Immature Gran % (Auto) 0.700 Neut % (Auto) 78.4 H Lymph % (Auto) 9.6 L [place] % (Auto) 8.2 Eos % (Auto) 2.8 Baso % (Auto) 0.3 Absolute Neuts (auto) 5.9 Absolute Lymphs (auto) 0.72 L Total Counted Not Reportable Sodium Potassium Chloride Carbon Dioxide Anion Gap BUN Creatinine Estim Creat Clear Calc Est GFR (MDRD) Af Amer Est GFR (MDRD) Non-Af BUN/Creatinine Ratio Glucose Calcium Random Vancomycin 16.2 H Crossmatch See Detail 08/21/17 05:44 WBC RBC Hgb Hct MCV MCH MCHC RDW RDW Differential Plt Count MPV Immature Gran % (Auto) Neut % (Auto) Lymph % (Auto) [place] % (Auto) Eos % (Auto) Baso % (Auto) Absolute Neuts (auto) Absolute Lymphs (auto) Total Counted Sodium 133 L Potassium 3.5 Chloride 94 L Carbon Dioxide 27.0 Anion Gap 12 BUN 41 H Creatinine 9.23 H* Estim Creat Clear Calc 7.36 Est GFR (MDRD) Af Amer 6 L Est GFR (MDRD) Non-Af 5 L BUN/Creatinine Ratio 4.4 L Glucose 143 H Calcium 7.7 L Random Vancomycin Crossmatch POC Glucose 08/21/17 08/20/17 08/20/17 06:42 22:09 16:01 POC Glucose 127 H 226 H 205 H Assessment/Plan Active and Suspected Problems ? Early small bowel obstruction (Acute) Possible Infectious Colitis (Acute) Abdominal pain (Acute) Inflammation of small intestine (Acute) 1. Pilonidal cyst - extensive, taken to surgery for resection nearly involving anal sphincter. with multiple organisms. Continue Vanc/Ceftazidmine/Flagyl per ID until 08/30/2017, Renal has made arrangements for IV abx with HD. Diverting colostomy per surgery. Continue wound care. 2. SBO with possible infectious colitis- resolved. Diet advanced per surgery. 3. ESRD - dialysis per Dr. Valdivia 4. Chronic Anemia - stable. likely 2/2 ESRD. Received 1 unit prbc yesterday. 5. Mild hyponatremia stable 6. Hx diastolic CHF - stable 7. T2DM - hx gastroparesis, neuropathy. Continue current regimen 8. Tobacco Abuse 9. CAD - asa, BB, statin, last cath 2012, mild LAD dz DVT ppx: scd's DC planning: To Skilled when ok per surgery. This patient was seen by Gael Vega PA-C under the supervision of Dr. Charles.
[2017-08-21 14:00] VITALS: BP 136/62; PULSE 81; RESP 18; TEMP 36.7; O2SAT 94
[2017-08-21] MEDS: Nepro Liquid 120 ML LIQUID PO (14:00)
--- NOTE | 2017-08-21 15:30 | NURSING ---
wound photo: sacrum/gluteal cleft
--- NOTE | 2017-08-21 16:37 | CASEMGMT ---
Social Work Note Dr. Zhang confirmed pt may discharge. Placed call to Lois at [facility] left indicating pt will discharge today and provided floor line to contact nursing with additional questions. Green sheet on chart to follow for discharge. Plan: [facility] for skilled care. SNEHA Souza LABOR MEDIATOR
--- NOTE | 2017-08-21 16:50 | PCM.TXEXTCAR ---
- Diet 08/20/17 10:16 Diet: Renal diet Is pt able to select menu?: Yes Diet Comments: if gets distended/bloated, go back to clears. - Routine Orders/Code Status O2 Liters per Minute: 2 O2 Frequency: Continuous Keep PO Greater than or Equal to (%): 90 Routine Lab Work: CBC - every other day x 3, BMP - every other day x 3 Code Status: Full Code - Wound(s) itz cleft Wound Type: open surgical wound s/p excision pilonidal cyst Dressing Change: Wet to Dry Dressing mid low back Wound Type: Puncture abd Wound Type: Surgical Incision Dressing Change: Dry Sterile Dressing - Therapies Physical Therapy: Eval and Treat Occupational Therapy: Eval and Treat - Problem/Diagnosis (1) Pilonidal cyst with abscess Status: Acute Current Visit: No (2) Small bowel obstruction Status: Acute Current Visit: Yes (3) Diabetes Status: Chronic Current Visit: Yes (4) CAD (coronary artery disease) Status: Chronic Current Visit: Yes (5) ESRD on dialysis Status: Chronic Current Visit: No (6) Depression Status: Chronic Current Visit: No (7) Anxiety Status: Chronic Current Visit: No (8) HTN (hypertension) Status: Chronic Current Visit: No (9) Hyperlipidemia Status: Chronic Current Visit: No (10) Systolic congestive heart failure Status: Chronic Comment: EF 40% Current Visit: No (11) Tobacco abuse Status: Chronic Current Visit: No (12) Obesity (BMI 30.0-34.9) Status: Chronic Current Visit: No (13) Gastroparesis Status: Chronic Current Visit: No - Allergies/Procedures Done in Hospital Allergies/Adverse Reactions: Allergies latex Allergy (Verified 08/12/17 02:03) Rash levofloxacin [From Levaquin] Adverse Reaction (Verified 08/12/17 02:03) PT CAN'T REMEMBER PT CAN'T REMEMBER metoclopramide HCl [From Reglan] Adverse Reaction (Verified 08/12/17 02:03) Nausea NSAIDS (Non-Steroidal Anti-Inflamma Adverse Reaction (Verified 08/12/17 02:03) kidney function oxycodone HCl [From Percocet] Adverse Reaction (Verified 08/12/17 02:03) HALLUCINATIONS - Type of Care/Length of Stay Estimated LOS: Convalescent Care Less Than 30 days Type of Care Needed: Skilled Rehab Potential: Fair Prognosis: Fair - Additional Orders/Day of Discharge Day of Discharge: 08/21/17 - Dietary and Speech Recommendations Dietitian Recommendations/Changes: Rec diet change 1800 calorie controlled, low sodium. Sugggest [place] 1 packet BID for wound healing. Continue Nepro Carb Steady ONS w/ medpass. - Follow Up Care Primary Care Physician: Christopher Foy MD [Primary Care Provider] - Please follow up with your Primary Care Physician in: 2 weeks Please Follow Up With: Jhon Zhang MD - bring ostomy bag When: 3 days Please Follow Up With: Maria Isabel Valdivia MD - resume normal dialysis schedule When: 2 days
[2017-08-21 16:56] LABS: Bedside Glucose 227 mg/dL (70-110)
--- NOTE | 2017-08-21 16:59 | PCM.DC.SUM ---
Discharge Date and Diagnosis - Problem List Patient Problems: Active and Suspected Problems Small bowel obstruction (Acute) ? Early small bowel obstruction (Acute) Possible Infectious Colitis (Acute) Abdominal pain (Acute) Inflammation of small intestine (Acute) Date of Admission: 08/12/17 Date of Discharge: 08/21/17 - Primary Discharge Diagnosis Active and Suspected Problems Small bowel obstruction (Acute) Pilonidal cyst with abscess 2/2 Possible Infectious Colitis (Acute) ESRD T2DM CAD Chronic CHF Obesity Tobacco abuse anx/dep - Secondary Discharge Diagnosis Chronic Problems Diabetes (Chronic) CAD (coronary artery disease) (Chronic) Anemia, chronic disease (Chronic) Smoker (Chronic) GABRIEL (obstructive sleep apnea) (Chronic) ESRD on dialysis (Chronic) Depression (Chronic) Anxiety (Chronic) HTN (hypertension) (Chronic) Nonischemic cardiomyopathy (Chronic) With ejection fraction 45 - 50%; with angiographically normal coronary arteries 05/2013; follows up with Dr. Magdaleno S/P repair of PDA (patent ductus arteriosus) (Chronic) At young age Diabetes mellitus type 1 (Chronic) Hyperlipidemia (Chronic) Obesity (Chronic) Systolic congestive heart failure (Chronic) EF 40% Left ventricular diastolic dysfunction, NYHA class 2 (Chronic) Tobacco abuse (Chronic) Iron deficiency anemia due to chronic blood loss (Chronic) Dysmenorrhea history, s/p hysterectomy. Obesity (BMI 30.0-34.9) (Chronic) Gastroparesis (Chronic) Hospital Course and Treatment Imaging Results: CT/Abdomen/Pelvis without Cont IMPRESSION: 1. CT findings suggest possible acute inflammation of the proximal small bowel and early or partial small bowel obstruction. Ileus is thought less likely. 2. Hepatomegaly and splenomegaly. RAD/Abdomen Single View IMPRESSION: No evidence of small bowel obstruction. RAD/Abdomen Single View IMPRESSION: Enteric contrast is still visible in the colon but there has been interim decrease in amount of enteric contrast since the previous study. Consultations Shaneka/Leatha/Valerio - Surgery [facility] - [place] Skip/Pura - Renal Operations: - - diverting colostomy, pilonidal cyst debridement Procedures: None Summary of Care Provided: Physical exam on day of discharge: See daily progress note Hospital course: The patient is a 41 year old F with ESRD, CAD, CHF, T2DM, obesity who presented to the ER with abdominal pain, vomiting, diarrhea, fever and chills. CT showed possible infectious colitis and SBO, she was admitted and started on zosyn and surgery consuled. She was later found to have a large pilonidal cyst. Plastics was consulted and she underwent an extensive debridement nearly involving the anal sphincter too large for wound vac. Given the extensive nature of the cyst a diverting colostomy was performed. Infectious disease was consulted. She was placed on flagyl, cefipime, and vancomysin as her wound was growing GPR, e coli, and enterococcus. She continued dialysis per [place] [facility]. Wound care was consulted. Her diet was successfully advanced. ID recommended to continue vancomycin and ceftazidime with dialysis and PO flagyl until 08/30/2017. [facility] due to the extensive nature of her wounds and needs to continue wound care. Renal arranged for vanc and ceftazidime to be continued with dialysis until the end date. I wrote for the necessary flagyl. [facility]. She will need to follow up with Dr. Zhang in 3 days, renal to continue dialysis and IV abx, Dr. Munroe in 1 week, and her PCP as well. This patient was seen by Gael Vega PA-C under the supervision of Doctor Araceli. [] Discharge Diet: Low fat/ Low Cholesterol, 1800 Calorie Control Diet, 4000 mg Sodium Diet, Renal Diet Discharge Activity: Return to Normal Activity Home Medications: Medications to take at Discharge Diltiazem HCl [Tiazac] 240 mg PO DAILY 07/10/15 Aspirin [Aspirin, Baby] 81 mg PO DAILY@0800 01/26/16 Calcium Acetate [Phoslo Gel Cap] 667 mg PO TIDCM 01/26/16 Ergocalciferol [Vitamin D] 50,000 unit PO FR 01/26/16 Insulin Aspart [Novolog Flexpen] 8 units SC TIDCM 01/26/16 Insulin Glargine,Hum.rec.anlog [Lantus] 5 unit SQ QHS 01/09/17 ProMETHAzine [Phenergan] 25 mg PO Q6H PRN PRN #10 tablet 03/06/17 Lisinopril 20 mg PO DAILY 03/29/17 Omeprazole Magnesium [Prilosec Otc] 20 mg PO DAILY 03/29/17 Sodium Bicarbonate 650 mg PO MOWEFR 03/29/17 Acetaminophen [Tylenol Tablet] 650 mg PO Q6H PRN PRN tablet 03/31/17 Carvedilol [Coreg (Beta Chang)] 25 mg PO BID 06/17/17 Ondansetron [Zofran Odt] 4 mg PO Q8H PRN PRN #10 tablet 08/06/17 ALPRAZolam [Xanax] 0.5 mg PO PRN PRN 08/12/17 HydromorphONE [Dilaudid] 2 mg PO Q4H PRN PRN #12 tab 08/21/17 Metronidazole [Flagyl] 500 mg PO TID #27 tablet 08/21/17 Following Prescrptions Were Given to Patient: HydromorphONE [Dilaudid] 2 mg PO Q4H PRN PRN #12 tab PRN Reason: Mod-Severe Pain (4-10) Primary Care Physician: Christopher Foy MD [Primary Care Provider] - Please follow up with your Primary Care Physician in: 2 weeks Please Follow Up With: Jhon Zhang MD - bring ostomy bag When: 3 days Please Follow Up With: Maria Isabel Valdivia MD - resume normal dialysis schedule When: 2 days Patient Instructions: Colostomy: Answers to Common Questions, Colostomy: Living an Active Life, Colostomy: Adjusting to Your Body, Colostomy: Changing Your Pouch, Ostomy Care: Emptying Your Pouch, Types of Colon Resections, What Is a Colostomy?, After Bowel Surgery: Recovering in the Hospital and at Home, Discharge Instructions for Colostomy, Discharge Instructions: Changing Your Ostomy Pouch, Discharge Instructions: Irrigating Your Colostomy, Colostomy: Caring for Your Stoma, Colostomy: Nutritional Management, Colostomy: Selecting Your Pouch Disposition: Retirement facility Minutes spent on discharge:: 40 Patient Condition:: Stable Meaningful Use Info Meaningful Use Diagnoses (Choose all that apply): None applicable
--- NOTE | 2017-08-21 17:07 | NURSING ---
report called to pasquale at [facility]
--- NOTE | 2017-08-21 17:13 | DS.PCM_ITS ---
Discharge Date and Diagnosis - Problem List Patient Problems: Active and Suspected Problems Small bowel obstruction (Acute) ? Early small bowel obstruction (Acute) Possible Infectious Colitis (Acute) Abdominal pain (Acute) Inflammation of small intestine (Acute) Date of Admission: 08/12/17 Date of Discharge: 08/21/17 - Primary Discharge Diagnosis Active and Suspected Problems Small bowel obstruction (Acute) Pilonidal cyst with abscess 2/2 Possible Infectious Colitis (Acute) ESRD T2DM CAD Chronic CHF Obesity Tobacco abuse anx/dep - Secondary Discharge Diagnosis Chronic Problems Diabetes (Chronic) CAD (coronary artery disease) (Chronic) Anemia, chronic disease (Chronic) Smoker (Chronic) GABRIEL (obstructive sleep apnea) (Chronic) ESRD on dialysis (Chronic) Depression (Chronic) Anxiety (Chronic) HTN (hypertension) (Chronic) Nonischemic cardiomyopathy (Chronic) With ejection fraction 45 - 50%; with angiographically normal coronary arteries 05/2013; follows up with Dr. Magdaleno S/P repair of PDA (patent ductus arteriosus) (Chronic) At young age Diabetes mellitus type 1 (Chronic) Hyperlipidemia (Chronic) Obesity (Chronic) Systolic congestive heart failure (Chronic) EF 40% Left ventricular diastolic dysfunction, NYHA class 2 (Chronic) Tobacco abuse (Chronic) Iron deficiency anemia due to chronic blood loss (Chronic) Dysmenorrhea history, s/p hysterectomy. Obesity (BMI 30.0-34.9) (Chronic) Gastroparesis (Chronic) Hospital Course and Treatment Imaging Results: CT/Abdomen/Pelvis without Cont IMPRESSION: 1. CT findings suggest possible acute inflammation of the proximal small bowel and early or partial small bowel obstruction. Ileus is thought less likely. 2. Hepatomegaly and splenomegaly. RAD/Abdomen Single View IMPRESSION: No evidence of small bowel obstruction. RAD/Abdomen Single View IMPRESSION: Enteric contrast is still visible in the colon but there has been interim decrease in amount of enteric contrast since the previous study. Consultations Shaneka/Leatha/Valerio - Surgery [facility] - [place] Skip/Pura - Renal Operations: - - diverting colostomy, pilonidal cyst debridement Procedures: None Summary of Care Provided: Physical exam on day of discharge: See daily progress note Hospital course: The patient is a 41 year old F with ESRD, CAD, CHF, T2DM, obesity who presented to the ER with abdominal pain, vomiting, diarrhea, fever and chills. CT showed possible infectious colitis and SBO, she was admitted and started on zosyn and surgery consuled. She was later found to have a large pilonidal cyst. Plastics was consulted and she underwent an extensive debridement nearly involving the anal sphincter too large for wound vac. Given the extensive nature of the cyst a diverting colostomy was performed. Infectious disease was consulted. She was placed on flagyl, cefipime, and vancomysin as her wound was growing GPR, e coli , and enterococcus. She continued dialysis per [place] [facility]. Wound care was consulted. Her diet was successfully advanced. ID recommended to continue vancomycin and ceftazidime with dialysis and PO flagyl until 08/30/2017. [facility] due to the extensive nature of her wounds and needs to continue wound care. Renal arranged for vanc and ceftazidime to be continued with dialysis until the end date. I wrote for the necessary flagyl. [facility]. She will need to follow up with Dr. Zhang in 3 days, renal to continue dialysis and IV abx, Dr. Munroe in 1 week, and her PCP as well. This patient was seen by Gael Veag PA-C under the supervision of Doctor Araceli. [] Discharge Diet: Low fat/ Low Cholesterol, 1800 Calorie Control Diet, 4000 mg Sodium Diet, Renal Diet Discharge Activity: Return to Normal Activity Home Medications: Medications to take at Discharge Diltiazem HCl [Tiazac] 240 mg PO DAILY 07/10/15 Aspirin [Aspirin, Baby] 81 mg PO DAILY@0800 01/26/16 Calcium Acetate [Phoslo Gel Cap] 667 mg PO TIDCM 01/26/16 Ergocalciferol [Vitamin D] 50,000 unit PO FR 01/26/16 Insulin Aspart [Novolog Flexpen] 8 units SC TIDCM 01/26/16 Insulin Glargine,Hum.rec.anlog [Lantus] 5 unit SQ QHS 01/09/17 ProMETHAzine [Phenergan] 25 mg PO Q6H PRN PRN #10 tablet 03/06/17 Lisinopril 20 mg PO DAILY 03/29/17 Omeprazole Magnesium [Prilosec Otc] 20 mg PO DAILY 03/29/17 Sodium Bicarbonate 650 mg PO MOWEFR 03/29/17 Acetaminophen [Tylenol Tablet] 650 mg PO Q6H PRN PRN tablet 03/31/17 Carvedilol [Coreg (Beta Chang)] 25 mg PO BID 06/17/17 Ondansetron [Zofran Odt] 4 mg PO Q8H PRN PRN #10 tablet 08/06/17 ALPRAZolam [Xanax] 0.5 mg PO PRN PRN 08/12/17 HydromorphONE [Dilaudid] 2 mg PO Q4H PRN PRN #12 tab 08/21/17 Metronidazole [Flagyl] 500 mg PO TID #27 tablet 08/21/17 Following Prescrptions Were Given to Patient: HydromorphONE [Dilaudid] 2 mg PO Q4H PRN PRN #12 tab PRN Reason: Mod-Severe Pain (4-10) Primary Care Physician: Christopher Foy MD [Primary Care Provider] - Please follow up with your Primary Care Physician in: 2 weeks Please Follow Up With: Jhon Zhang MD - bring ostomy bag When: 3 days Please Follow Up With: Maria Isabel Valdivia MD - resume normal dialysis schedule When: 2 days Patient Instructions: Colostomy: Answers to Common Questions, Colostomy: Living an Active Life, Colostomy: Adjusting to Your Body, Colostomy: Changing Your Pouch, Ostomy Care: Emptying Your Pouch, Types of Colon Resections, What Is a Colostomy?, After Bowel Surgery: Recovering in the Hospital and at Home, Discharge Instructions for Colostomy, Discharge Instructions: Changing Your Ostomy Pouch, Discharge Instructions: Irrigating Your Colostomy, Colostomy: Caring for Your Stoma, Colostomy: Nutritional Management, Colostomy: Selecting Your Pouch Disposition: Longterm facility Minutes spent on discharge:: 40 Patient Condition:: Stable Meaningful Use Info Meaningful Use Diagnoses (Choose all that apply): None applicable
--- NOTE | 2017-08-21 17:40 | PN.SURG_ITS ---
Patient Problems: Active and Suspected Problems Small bowel obstruction (Acute) ? Early small bowel obstruction (Acute) Possible Infectious Colitis (Acute) Abdominal pain (Acute) Inflammation of small intestine (Acute) Subjective: stool in stoma bag - Physical Exam General: Alert, Oriented x3 Abdomen: Soft, - - stool in colostomy bag Vital Signs Temp Pulse Resp BP Pulse Ox 98.0 F 81 18 136/62 H 94 08/21/17 14:00 08/21/17 14:00 08/21/17 14:00 08/21/17 14:00 08/21/17 14:00 Oxygen Flow Rate 2 Oxygen Delivery Method Nasal Cannula Weight: 98.2 kg Body Mass Index (BMI) 33.8 Finger Stick Blood Glucose 118 Intake and Output for Last 24 Hours 08/19/17 08/20/17 08/21/17 23:59 23:59 23:59 Intake Total 1668 / 1668 3190 / 3190 117 / 117 Output Total 100 / 100 3450 / 3450 2550 / 2550 Balance 1568 / 1568 -260 / -260 -2433 / -2433 Microbiology Past 72 Hours 08/15/17 11:19 Gram Stain - Final Tissue - Pilondial Wound Culture - Final Enterococcus avium Escherichia coli Anaerobic Culture - Preliminary Checking for anaerobes, further studies to follow. Laboratory Tests Past 24 Hrs 08/21/17 08/21/17 08/21/17 05:44 05:44 05:44 WBC 7.5 RBC 2.57 L Hgb 7.9 L Hct 25.0 L MCV 97.3 MCH 30.7 MCHC 31.6 L RDW 15.5 H RDW Differential 51.7 H Plt Count 165 MPV 8.6 Immature Gran % (Auto) 0.700 Neut % (Auto) 78.4 H Lymph % (Auto) 9.6 L Isabella % (Auto) 8.2 Eos % (Auto) 2.8 Baso % (Auto) 0.3 Absolute Neuts (auto) 5.9 Absolute Lymphs (auto) 0.72 L Total Counted Not Reportable Sodium 133 L Potassium 3.5 Chloride 94 L Carbon Dioxide 27.0 Anion Gap 12 BUN 41 H Creatinine 9.23 H* Estim Creat Clear Calc 7.36 Est GFR (MDRD) Af Amer 6 L Est GFR (MDRD) Non-Af 5 L BUN/Creatinine Ratio 4.4 L Glucose 143 H Calcium 7.7 L Random Vancomycin 16.2 H POC Glucose 08/21/17 08/21/17 08/20/17 16:47 06:42 22:09 POC Glucose 227 H 127 H 226 H Assessment/Plan Active and Suspected Problems Small bowel obstruction (Acute) ? Early small bowel obstruction (Acute) Possible Infectious Colitis (Acute) Abdominal pain (Acute) Inflammation of small intestine (Acute) POD # 4 s/p laparoscopic transverse loop colostomy. Patient denies nausea or other difficulties. States she is hungry. Tolerating clear liquids well. solid stool output in stoma currently. okay [facility]. We will likely leave stoma bar in for 1-2 weeks. Due to the fact the stone was under some tension. Due to her abdominal girth. Would like her to follow-up in my office this coming , but most likely not remove his lumbar to the following week.
--- NOTE | 2017-08-21 18:14 | NURSING ---
[facility] called for transport.
--- NOTE | 2017-08-21 19:47 | NURSING ---
pt reports dilaudid not effective for pain- see SEP. pt reports dressing was changed around 1700. [facility] to transport.
[2017-08-21] MEDS: diazePAM 5 MG Tablet PO (19:56)
[2017-08-21 19:59] VITALS: BP 144/77; PULSE 94; RESP 16; TEMP 37.8; O2SAT 94
--- NOTE | 2017-08-22 13:22 | NURSING ---
am assessment for 08/21 inadvertantly not recorded, recorded at this time
== END 2017-08-21 20:25 | disposition skilled nursing facility (03) | DRG 329 ==
LOC: ED 04:45 → MS3 05:02
PROVIDERS: Anesthesiology; Internal Medicine; Internal Medicine Infectious Disease; Nurse Practitioner Family; Surgery; Admitting Provider Family Medicine; Emergency Provider Emergency Medicine; Family Provider Family Medicine; PCP Family Medicine; Visit Provider Family Medicine
PROC: 0KBP0ZZ Excision of Left Hip Muscle, Open Approach (ICD-10-PCS; principal; 2017-08-15 10:15)
PROC: 0D1E4Z4 Bypass Large Intestine to Cutaneous, Percutaneous Endoscopic Approach (ICD-10-PCS; CPT 44188; principal; 2017-08-17 10:40)
DX: A09 Infectious gastroenteritis and colitis, unspecified (principal); N18.6 End stage renal disease; I13.2 Hypertensive heart and chronic kidney disease with heart failure and with stage 5 chronic kidney disease, or end stage renal disease; K56.609 Unspecified intestinal obstruction, unspecified as to partial versus complete obstruction; E10.21 Type 1 diabetes mellitus with diabetic nephropathy; I42.9 Cardiomyopathy, unspecified; K31.84 Gastroparesis; E11.43 Type 2 diabetes mellitus with diabetic autonomic (poly)neuropathy; I50.22 Chronic systolic (congestive) heart failure; L05.01 Pilonidal cyst with abscess; E66.9 Obesity, unspecified; E78.5 Hyperlipidemia, unspecified; I25.10 Atherosclerotic heart disease of native coronary artery without angina pectoris; F41.9 Anxiety disorder, unspecified; F32.9 Major depressive disorder, single episode, unspecified; Z68.33 Body mass index [BMI] 33.0-33.9, adult; Z79.4 Long term (current) use of insulin; Z99.2 Dependence on renal dialysis; B95.2 Enterococcus as the cause of diseases classified elsewhere; B96.20 Unspecified Escherichia coli [E. coli] as the cause of diseases classified elsewhere; B95.4 Other streptococcus as the cause of diseases classified elsewhere; D63.8 Anemia in other chronic diseases classified elsewhere; Z79.899 Other long term (current) drug therapy; F17.210 Nicotine dependence, cigarettes, uncomplicated; G47.33 Obstructive sleep apnea (adult) (pediatric); K42.9 Umbilical hernia without obstruction or gangrene; K66.0 Peritoneal adhesions (postprocedural) (postinfection); Z87.74 Personal history of (corrected) congenital malformations of heart and circulatory system
CPT/HCPCS: 36415; 74018; 74176; 80048; 80053; 80202; 82962; 83036; 83690; 84134; 85025; 85027; 85610; 85652; 85730; 86140; 86850; 86870; 86880; 86900; 86902; 86920; 86922; 87070; 87075; 87077; 87102; 87186; 87205; 87206; 87640; 88304; 88312; 90937; 93005; 94762; 97802; 97803; 99281; 99406; J0885; J1756; J7030; J7040; J7050; J7120; P9016; A4216; G0257; J2405; J3490; J7799

== ENCOUNTER 2017-09-01 21:46 | Inpatient (IN) | payer MEDICARE, MEDICAID, SELFPAY ==
[2017-09-01 21:52] VITALS: BP 138/58; PULSE 97; RESP 20; TEMP 37; O2SAT 98; BMI 35.1
[2017-09-01] MEDS: HYDROmorphone 1 MG/ML Syringe IV (22:25)
[2017-09-01 22:28] LABS: Absolute Lymphocyte Count 0.84 X10^3/ul (0.83-4.51); Basophil# 0.01 X10^3/uL; Basophil% 0.2 % (0-1); Eosinophil# 0.09 X10^3/uL; Eosinophils% 1.4 % (0-5); Hematocrit 22.6 % (37-47); Hemoglobin 6.9 g/dl (12.0-15.0); Lymphocyte # 0.84 X10^3/ul (4.0); Lymphocyte % 13.3 % (19-41); Mean Corp Hgb Conc 30.5 g/gl (32-36); Mean Corpuscular Hgb 31.2 pg (27.0-32.0); Mean Corpuscular Volume 102.3 fL (81-99); Mean Platelet Vol. 8.1 fl (6.2-12.0); Monocyte# 0.31 X10^3/uL; Monocyte% 4.9 % (0-10); Neutrophil # 5.03 X10^3/uL (2.7-7.7); Neutrophil % 79.9 % (47-70); Platelet Count 203 K/mm3 (150-450); RBC Distribution Width CV 16.5 % (11.6-14.6); RBC Distribution Width SD 62.1 fl (35.1-43.9); Red Blood Count 2.21 M/mm3 (4.2-5.4); White Blood Count 6.3 K/mm3 (4.4-11.0)
[2017-09-01 22:29] LABS: POSITIVE COUNT NO; POSITIVE DIFFERENTIAL NO; POSITIVE MORPHOLOGY NO
[2017-09-01 22:33] LABS: International Normalized Ratio 1.3; Partial Thromboplast Time 34.5 Seconds (24.1-36.2); Prothrombin Time (Protime)PT. 15.5 SECONDS (11.7-14.9)
[2017-09-01 22:51] LABS: ALB/GLOB Ratio 0.4 RATIO (0.9-2.4); AST(SGOT) 15 U/L (15-37); Alanine Aminotransfer ALT/SGPT 13 U/L (13-56); Albumin, Serum 1.9 g/dL (3.2-5.0); Alkaline Phosphatase 76 U/L (45-117); Anion Gap 9 (5-15); BUN 20 mg/dL (7-18); BUN/Creat Ratio 5.9 RATIO (10-20); Calcium,Total 7.3 mg/dL (8.5-10.1); Chloride 99 mmol/L (98-107); Creatinine, Serum 3.41 mg/dL (0.55-1.02); EST Glomerular Filtration Rate 16 mL/min (>60); Est Glom Filt Rate - Afr Amer 19 mL/min (>60); Estimated Creatinine Clearance 19.91 ml/min; Globulin 4.7 g/dL (2.2-4.2); Glucose 218 mg/dL (74-106); Potassium 2.9 mmol/L (3.5-5.1); Protein, Total 6.6 g/dL (6.4-8.2); Sodium Level 142 mmol/L (136-145)
[2017-09-01 22:59] LABS: Lactic Acid 3.1 mmol/L (0.4-2.0)
--- NOTE | 2017-09-01 22:59 | ED.RN ---
dr notified of lactic 3.1
[2017-09-01 23:20] VITALS: BP 114/39; PULSE 90; RESP 16; O2SAT 98
[2017-09-02] VITALS (42 sets, daily range): BP systolic 74–164; BP diastolic 42–87; PULSE 67–100; RESP 9–30; TEMP 36.4–37.9; O2SAT 94–100; BMI 32.3; BMI 35.1
--- NOTE | 2017-09-02 00:46 | ED.RN ---
CALLED DR. BAUER'S CELL PHONE AT [phone] AND LEFT HIM A MESSAGE. CALLED HIM AGAIN AT 0010, 0027 AND 0045 WITH NO ANSWER. HE CALLED BACK AT [address] CORTÉS.
[2017-09-02 02:11] LABS: Hemoglobin 5.2 g/dl (12.0-15.0)
--- NOTE | 2017-09-02 02:12 | NURSING ---
LAB CALLED WITH A CRITICAL OF 5.2
[2017-09-02 02:30] LABS: Reflex Lactate? Y
--- NOTE | 2017-09-02 02:40 | ED.VISSUMM ---
- ER Visit Summary Date of Service: 09/02/17 Chief Complaint: [] Wound blood loss History of Present Illness: The patient is a 41 F [] c/o acute blood loss from recent sacral surgical wound after bleeding dialysis and receiving heparin. Patient's family reports as soon as she got home she had a significant blood loss from the sacral wound. Family estimates 1 pint of blood. Patient is reporting pain and requesting analgesia. Patient is pale, hypotensive with systolic in the 90s and tachycardic in the 110's. Patient denies abdominal pain. Reports she recently underwent a I&D of the sacral area and had a colostomy simultaneously approximately 1 week ago. Physical Examination: [] Afebrile, tachycardic, hypotensive with systolic in the 90's. Morbidly obese female, pallor, tachycardic with regular rhythm. Lungs are clear to auscultation. Abdomen is obese, soft, nontender. Sacral wound is open, oozing blood, with very large/wide surgical margins extending greater than 15 cm across the midline. Bleeding controlled with direct pressure dressing. Test Results: [] Initial hemoglobin measured 6.9. This appears low from the patient's baseline of around 8. We repeated this approximately 2 hours later and the patient had a hemoglobin of 5.2 which is likely more reflective of the acute blood loss reported earlier after the heparinization during hemodialysis. Potassium 2.9. Creatinine 3.41. INR 1.3. PTT 34.5. Lactic acid 3.1. Emergency Department Course and Treatment: [] The patient was given intravenous fluid bolus, Dilaudid for analgesia. Blood pressure stabilized. Wound dressings were saturated approximately 3 times and replaced. 2 units of blood were ordered and administered in the emergency department. Case was discussed with Dr. Munroe, plastic surgeon who performed the sacral procedure. Case was discussed with the hospitalist Dr. Roman. The hospitalist will admit the patient and consult plastic surgery. Family is amenable to admission. I do not feel the patient warranted protamine treatment at this time. Treatment Plan: [] Admit, blood transfusion, surgical consultation in the a.m. Disposition: [] Admit, stable. Impression: [] Acute blood loss from surgical wound Anemia History of end-stage renal disease Critical CARE time: 40 minutes This note was generated with [employer] software. It may contain incorrect words, spelling, and punctuation that were not noted in review of the chart prior to signing ED Disposition - Plan for ED Patient: Chief Complaint: Wound Referrals: Christopher Foy MD [Primary Care Provider] -
--- NOTE | 2017-09-02 03:03 | PCM.HP.STD ---
Problem List (1) Acute blood loss anemia Status: Acute (2) Pilonidal cyst with abscess Status: Chronic (3) ESRD on dialysis Status: Chronic (4) Depression Status: Chronic Qualifiers: (5) Anxiety Status: Chronic (6) HTN (hypertension) Status: Chronic Qualifiers: (7) Nonischemic cardiomyopathy Status: Chronic Comment: With ejection fraction 45 - 50%; with angiographically normal coronary arteries 05/2013; follows up with Dr. Magdaleno (8) S/P repair of PDA (patent ductus arteriosus) Status: Chronic Comment: At young age (9) Diabetes mellitus type 1 Status: Chronic Qualifiers: (10) Hyperlipidemia Status: Chronic Qualifiers: (11) Left ventricular diastolic dysfunction, NYHA class 2 Status: Chronic (12) Tobacco abuse Status: Chronic (13) Iron deficiency anemia due to chronic blood loss Status: Chronic Comment: Dysmenorrhea history, s/p hysterectomy. (14) Obesity (BMI 30.0-34.9) Status: Chronic (15) Gastroparesis Status: Chronic History of Present Illness Date of Admission: 09/02/17 Chief Complaint: bleeding The patient is a 41 year old F who is in her jail and then had bleeding from her recent pilonidal cyst resection. Patient's sheets were soaked and patient was able to get up and but some the staff know and had a trail of blood following behind her. Given the large amount of bleeding the patient had patient was sent to the emergency room. In the emergency room, patient's hemoglobin was noted to be 5.2 and down from 7.9 from 129. Earlier in this hospitalization in the ER patient's hemoglobin was 6.9. Patient has been typed and crossed into be transfused 2 units of packed red blood cells. They were able to get the bleeding stopped with very vigorous packing of the wound. Patient does not have a wound VAC for this wound given its proximity to the rectum. Patient's mother is present and noted that the patient has been confused and reaching out from things that are not there. [] Past Medical History Past Medical History (Chronic Problems): Chronic Problems CAD (coronary artery disease) (Chronic) Diabetes (Chronic) Anemia, chronic disease (Chronic) Smoker (Chronic) Pilonidal cyst with abscess (Chronic) GABRIEL (obstructive sleep apnea) (Chronic) ESRD on dialysis (Chronic) Depression (Chronic) Anxiety (Chronic) HTN (hypertension) (Chronic) Nonischemic cardiomyopathy (Chronic) With ejection fraction 45 - 50%; with angiographically normal coronary arteries 05/2013; follows up with Dr. Magdaleno S/P repair of PDA (patent ductus arteriosus) (Chronic) At young age Diabetes mellitus type 1 (Chronic) Hyperlipidemia (Chronic) Obesity (Chronic) Systolic congestive heart failure (Chronic) EF 40% Left ventricular diastolic dysfunction, NYHA class 2 (Chronic) Tobacco abuse (Chronic) Iron deficiency anemia due to chronic blood loss (Chronic) Dysmenorrhea history, s/p hysterectomy. Obesity (BMI 30.0-34.9) (Chronic) Gastroparesis (Chronic) Allergies latex Allergy (Verified 08/12/17 02:03) Rash levofloxacin [From Levaquin] Adverse Reaction (Verified 08/12/17 02:03) PT CAN'T REMEMBER PT CAN'T REMEMBER metoclopramide HCl [From Reglan] Adverse Reaction (Verified 08/12/17 02:03) Nausea NSAIDS (Non-Steroidal Anti-Inflamma Adverse Reaction (Verified 08/12/17 02:03) kidney function oxycodone HCl [From Percocet] Adverse Reaction (Verified 08/12/17 02:03) HALLUCINATIONS Home Medications: Ambulatory Orders Medication Instructions Recorded Diltiazem HCl [Tiazac] 240 mg PO DAILY 07/10/15 Aspirin [Aspirin, Baby] 81 mg PO DAILY@0800 01/26/16 Calcium Acetate [Phoslo Gel Cap] 667 mg PO TIDCM 01/26/16 Ergocalciferol [Vitamin D] 50,000 unit PO FR 01/26/16 Insulin Aspart [Novolog Flexpen] 8 units SC TIDCM 01/26/16 Insulin Glargine,Hum.rec.anlog 5 unit SQ QHS 01/09/17 [Lantus] ProMETHAzine [Phenergan] 25 mg PO Q6H PRN PRN #10 tablet 03/06/17 Lisinopril 20 mg PO DAILY 03/29/17 Omeprazole Magnesium [Prilosec Otc] 20 mg PO DAILY 03/29/17 Sodium Bicarbonate 650 mg PO MOWEFR 03/29/17 Acetaminophen [Tylenol Tablet] 650 mg PO Q6H PRN PRN tablet 03/31/17 Carvedilol [Coreg (Beta Chang)] 25 mg PO BID 06/17/17 Ondansetron [Zofran Odt] 4 mg PO Q8H PRN PRN #10 tablet 08/06/17 HydromorphONE [Dilaudid] 2 mg PO Q4H PRN PRN #12 tab 08/21/17 Metronidazole [Flagyl] 500 mg PO TID #27 tablet 08/21/17 ALPRAZolam [Xanax] 0.5 mg PO BID 09/01/17 Surgical History: appendectomy, hysterectomy - and BSO, - - c-sections, L breast I+D for abscess, fistula placement LUE, L ankle surgery, appendectomy, PDA repair. Excision pilonidal cyst ulcer about 4 years ago. Psychiatric History: Anxiety, Depression Smoking Status: Current every day smoker - *Family History Maternal History Items: Cancer, COPD, Diabetes, Hypertension, Renal Disease, Stroke Paternal History Items: Diabetes Sibling History Items: Cancer, Diabetes Review of Systems Constitutional: Denies: Chills, Fever, Weight Change Eyes: Reports: Blurred vision. Denies: Double vision HEENT: Denies: Head Aches, Sinus Congestion, Sinus Drainage Cardiovascular: Denies: Chest Pain, Palpitations Respiratory: Reports: Shortness of Breath. Denies: Cough Gastrointestinal: Denies: Abdominal Pain, Diarrhea, Dyspepsia, Vomiting Genitourinary: Denies: Dysuria, Frequency Musculoskeletal: Denies: Joint Pain, Joint Tenderness Skin: Reports: Wounds - Pilonidal cyst resection on her sacrum.. Denies: Dryness Neurological: Reports: Blurred vision, Confusion. Denies: Balance problems, Double vision, Change in Speech Psychiatric: Reports: Anxiety, Depression Hematologic/ Lymphatic: Reports: Easy Bleeding. Denies: Hx of blood clot VTE Information - Inpt Only VTE Present on Admission: No VTE Mechan Device Prophylaxis: SCD's Reason prophylaxis not ordered:: Medical Contraindication Patient Problems: Active and Suspected Problems Acute blood loss anemia (Acute) - Physical Exam General: Alert, Oriented x3, Cooperative, - - Listless. Confused but appropriate. HEENT: Atraumatic, Normocephalic, - - No scleral icterus Oral: Moist Mucosa, No Gingival or Mucosal Lesions/ Ulcerations Neck: No Nodes, Thyroid Normal Size and Texture Lungs: Clear to auscultation, Normal air movement, No rhonchi, No wheeze Cardiovascular: Regular rate, Regular Rhythm, Normal S1, Normal S2, No murmurs Abdomen: Bowel Sounds Present, Soft, Non Tender, Non-Distended, No Hepato-splenomegaly, Obese Extremities: No edema, No Calf Tenderness Skin: No rashes, Ulcer/ Wound, - - Sacral wound was bandaged and taped, did not remove. Musculoskeletal: No Tenderness to Palpation of Joints or Extremities, No Muscle Wasting Neurological: Neuro grossly intact, Motor Exam 5/5 strength throughout, Muscle tone normal, Sensory exam intact to light touch and pain Psych/Mental Status: - - Slightly confused but appropriate Vital Signs Temp Pulse Resp BP Pulse Ox 37.0 C 87 13 95/69 96 09/01/17 21:52 09/02/17 02:12 09/02/17 02:12 09/02/17 02:12 09/02/17 02:12 Oxygen Delivery Method Room Air Weight: 98.7 kg Body Mass Index (BMI) 35.1 Finger Stick Blood Glucose 118 Laboratory Tests Past 24 Hrs 09/01/17 09/01/17 09/01/17 21:55 21:55 21:55 WBC 6.3 RBC 2.21 L Hgb 6.9 L Hct 22.6 L MCV 102.3 H MCH 31.2 MCHC 30.5 L RDW 16.5 H RDW Differential 62.1 H Plt Count 203 MPV 8.1 Immature Gran % (Auto) 0.300 Neut % (Auto) 79.9 H Lymph % (Auto) 13.3 L Karnes % (Auto) 4.9 Eos % (Auto) 1.4 Baso % (Auto) 0.2 Absolute Neuts (auto) 5.0 Absolute Lymphs (auto) 0.84 Total Counted Not Reportable PT 15.5 H INR 1.3 APTT 34.5 Sodium 142 Potassium 2.9 L Chloride 99 Carbon Dioxide 34.0 H Anion Gap 9 BUN 20 H Creatinine 3.41 H Estim Creat Clear Calc 19.91 Est GFR (MDRD) Af Amer 19 L Est GFR (MDRD) Non-Af 16 L BUN/Creatinine Ratio 5.9 L Glucose 218 H Lactic Acid Calcium 7.3 L Total Bilirubin 0.30 AST 15 ALT 13 Alkaline Phosphatase 76 Total Protein 6.6 Albumin 1.9 L Globulin 4.7 H Albumin/Globulin Ratio 0.4 L Blood Type Antibody Screen Antibody Identification Crossmatch 09/01/17 09/01/17 09/01/17 21:55 21:55 22:25 WBC RBC Hgb Hct MCV MCH MCHC RDW RDW Differential Plt Count MPV Immature Gran % (Auto) Neut % (Auto) Lymph % (Auto) Karnes % (Auto) Eos % (Auto) Baso % (Auto) Absolute Neuts (auto) Absolute Lymphs (auto) Total Counted PT INR APTT Sodium Potassium Chloride Carbon Dioxide Anion Gap BUN Creatinine Estim Creat Clear Calc Est GFR (MDRD) Af Amer Est GFR (MDRD) Non-Af BUN/Creatinine Ratio Glucose Lactic Acid 3.1 H Calcium Total Bilirubin AST ALT Alkaline Phosphatase Total Protein Albumin Globulin Albumin/Globulin Ratio Blood Type A NEGATIVE Antibody Screen POSITIVE H Antibody Identification Pending Crossmatch See Detail 09/02/17 02:00 WBC RBC Hgb 5.2 L* Hct MCV MCH MCHC RDW RDW Differential Plt Count MPV Immature Gran % (Auto) Neut % (Auto) Lymph % (Auto) Karnes % (Auto) Eos % (Auto) Baso % (Auto) Absolute Neuts (auto) Absolute Lymphs (auto) Total Counted PT INR APTT Sodium Potassium Chloride Carbon Dioxide Anion Gap BUN Creatinine Estim Creat Clear Calc Est GFR (MDRD) Af Amer Est GFR (MDRD) Non-Af BUN/Creatinine Ratio Glucose Lactic Acid Calcium Total Bilirubin AST ALT Alkaline Phosphatase Total Protein Albumin Globulin Albumin/Globulin Ratio Blood Type Antibody Screen Antibody Identification Crossmatch Assessment/Plan Active and Suspected Problems Acute blood loss anemia (Acute) 1. Acute blood loss anemia Secondary to bleeding from the sacral ulcer. Patient to be transfused 2 units of packed red blood cells. I am also going to type and cross an additional 2 units based on what her follow-up hemoglobins or if patient does have more vigorous bleeding again. Currently, the patient is hemodynamically stable. Patient will be admitted to the ICU for closer monitoring until we can ensure that she is going to remain stable to go to the floor. 2. Recent pilonidal cyst resection Dr. Munroe has been contacted by the emergency room and stated that he would see the patient in consultation. Consult wound care as well. 3. End-stage renal disease Consult nephrology for continuation of her dialysis. 4. Diabetes mellitus type 1 Continue with Levemir and log. 5. DVT prophylaxis with SCDs. Chemical prophylaxis is contraindicated in light of the acute blood loss anemia. Code Visit Inpatient E&M: 95368 Init Hosp L3
--- NOTE | 2017-09-02 03:13 | HP.PCM_ITS ---
Problem List (1) Acute blood loss anemia Status: Acute (2) Pilonidal cyst with abscess Status: Chronic (3) ESRD on dialysis Status: Chronic (4) Depression Status: Chronic Qualifiers: (5) Anxiety Status: Chronic (6) HTN (hypertension) Status: Chronic Qualifiers: (7) Nonischemic cardiomyopathy Status: Chronic Comment: With ejection fraction 45 - 50%; with angiographically normal coronary arteries 05/2013; follows up with Dr. Magdaleno (8) S/P repair of PDA (patent ductus arteriosus) Status: Chronic Comment: At young age (9) Diabetes mellitus type 1 Status: Chronic Qualifiers: (10) Hyperlipidemia Status: Chronic Qualifiers: (11) Left ventricular diastolic dysfunction, NYHA class 2 Status: Chronic (12) Tobacco abuse Status: Chronic (13) Iron deficiency anemia due to chronic blood loss Status: Chronic Comment: Dysmenorrhea history, s/p hysterectomy. (14) Obesity (BMI 30.0-34.9) Status: Chronic (15) Gastroparesis Status: Chronic History of Present Illness Date of Admission: 09/02/17 Chief Complaint: bleeding The patient is a 41 year old F who is in her shelter and then had bleeding from her recent pilonidal cyst resection. Patient's sheets were soaked and patient was able to get up and but some the staff know and had a trail of blood following behind her. Given the large amount of bleeding the patient had patient was sent to the emergency room. In the emergency room, patient's hemoglobin was noted to be 5.2 and down from 7.9 from 129. Earlier in this hospitalization in the ER patient's hemoglobin was 6.9. Patient has been typed and crossed into be transfused 2 units of packed red blood cells. They were able to get the bleeding stopped with very vigorous packing of the wound. Patient does not have a wound VAC for this wound given its proximity to the rectum. Patient's mother is present and noted that the patient has been confused and reaching out from things that are not there. [] Past Medical History Past Medical History (Chronic Problems): Chronic Problems CAD (coronary artery disease) (Chronic) Diabetes (Chronic) Anemia, chronic disease (Chronic) Smoker (Chronic) Pilonidal cyst with abscess (Chronic) GABRIEL (obstructive sleep apnea) (Chronic) ESRD on dialysis (Chronic) Depression (Chronic) Anxiety (Chronic) HTN (hypertension) (Chronic) Nonischemic cardiomyopathy (Chronic) With ejection fraction 45 - 50%; with angiographically normal coronary arteries 05/2013; follows up with Dr. Magdaleno S/P repair of PDA (patent ductus arteriosus) (Chronic) At young age Diabetes mellitus type 1 (Chronic) Hyperlipidemia (Chronic) Obesity (Chronic) Systolic congestive heart failure (Chronic) EF 40% Left ventricular diastolic dysfunction, NYHA class 2 (Chronic) Tobacco abuse (Chronic) Iron deficiency anemia due to chronic blood loss (Chronic) Dysmenorrhea history, s/p hysterectomy. Obesity (BMI 30.0-34.9) (Chronic) Gastroparesis (Chronic) Allergies latex Allergy (Verified 08/12/17 02:03) Rash levofloxacin [From Levaquin] Adverse Reaction (Verified 08/12/17 02:03) PT CAN'T REMEMBER PT CAN'T REMEMBER metoclopramide HCl [From Reglan] Adverse Reaction (Verified 08/12/17 02:03) Nausea NSAIDS (Non-Steroidal Anti-Inflamma Adverse Reaction (Verified 08/12/17 02:03) kidney function oxycodone HCl [From Percocet] Adverse Reaction (Verified 08/12/17 02:03) HALLUCINATIONS Home Medications: Ambulatory Orders Medication Instructions Recorded Diltiazem HCl [Tiazac] 240 mg PO DAILY 07/10/15 Aspirin [Aspirin, Baby] 81 mg PO DAILY@0800 01/26/16 Calcium Acetate [Phoslo Gel Cap] 667 mg PO TIDCM 01/26/16 Ergocalciferol [Vitamin D] 50,000 unit PO FR 01/26/16 Insulin Aspart [Novolog Flexpen] 8 units SC TIDCM 01/26/16 Insulin Glargine,Hum.rec.anlog 5 unit SQ QHS 01/09/17 [Lantus] ProMETHAzine [Phenergan] 25 mg PO Q6H PRN PRN #10 tablet 03/06/17 Lisinopril 20 mg PO DAILY 03/29/17 Omeprazole Magnesium [Prilosec Otc] 20 mg PO DAILY 03/29/17 Sodium Bicarbonate 650 mg PO MOWEFR 03/29/17 Acetaminophen [Tylenol Tablet] 650 mg PO Q6H PRN PRN tablet 03/31/17 Carvedilol [Coreg (Beta Chang)] 25 mg PO BID 06/17/17 Ondansetron [Zofran Odt] 4 mg PO Q8H PRN PRN #10 tablet 08/06/17 HydromorphONE [Dilaudid] 2 mg PO Q4H PRN PRN #12 tab 08/21/17 Metronidazole [Flagyl] 500 mg PO TID #27 tablet 08/21/17 ALPRAZolam [Xanax] 0.5 mg PO BID 09/01/17 Surgical History: appendectomy, hysterectomy - and BSO, - - c-sections, L breast I+D for abscess, fistula placement LUE, L ankle surgery, appendectomy, PDA repair. Excision pilonidal cyst ulcer about 4 years ago. Psychiatric History: Anxiety, Depression Smoking Status: Current every day smoker - *Family History Maternal History Items: Cancer, COPD, Diabetes, Hypertension, Renal Disease, Stroke Paternal History Items: Diabetes Sibling History Items: Cancer, Diabetes Review of Systems Constitutional: Denies: Chills, Fever, Weight Change Eyes: Reports: Blurred vision. Denies: Double vision HEENT: Denies: Head Aches, Sinus Congestion, Sinus Drainage Cardiovascular: Denies: Chest Pain, Palpitations Respiratory: Reports: Shortness of Breath. Denies: Cough Gastrointestinal: Denies: Abdominal Pain, Diarrhea, Dyspepsia, Vomiting Genitourinary: Denies: Dysuria, Frequency Musculoskeletal: Denies: Joint Pain, Joint Tenderness Skin: Reports: Wounds - Pilonidal cyst resection on her sacrum.. Denies: Dryness Neurological: Reports: Blurred vision, Confusion. Denies: Balance problems, Double vision, Change in Speech Psychiatric: Reports: Anxiety, Depression Hematologic/ Lymphatic: Reports: Easy Bleeding. Denies: Hx of blood clot VTE Information - Inpt Only VTE Present on Admission: No VTE Mechan Device Prophylaxis: SCD's Reason prophylaxis not ordered:: Medical Contraindication Patient Problems: Active and Suspected Problems Acute blood loss anemia (Acute) - Physical Exam General: Alert, Oriented x3, Cooperative, - - Listless. Confused but appropriate. HEENT: Atraumatic, Normocephalic, - - No scleral icterus Oral: Moist Mucosa, No Gingival or Mucosal Lesions/ Ulcerations Neck: No Nodes, Thyroid Normal Size and Texture Lungs: Clear to auscultation, Normal air movement, No rhonchi, No wheeze Cardiovascular: Regular rate, Regular Rhythm, Normal S1, Normal S2, No murmurs Abdomen: Bowel Sounds Present, Soft, Non Tender, Non-Distended, No Hepato- splenomegaly, Obese Extremities: No edema, No Calf Tenderness Skin: No rashes, Ulcer/ Wound, - - Sacral wound was bandaged and taped, did not remove. Musculoskeletal: No Tenderness to Palpation of Joints or Extremities, No Muscle Wasting Neurological: Neuro grossly intact, Motor Exam 5/5 strength throughout, Muscle tone normal, Sensory exam intact to light touch and pain Psych/Mental Status: - - Slightly confused but appropriate Vital Signs Temp Pulse Resp BP Pulse Ox 37.0 C 87 13 95/69 96 09/01/17 21:52 09/02/17 02:12 09/02/17 02:12 09/02/17 02:12 09/02/17 02:12 Oxygen Delivery Method Room Air Weight: 98.7 kg Body Mass Index (BMI) 35.1 Finger Stick Blood Glucose 118 Laboratory Tests Past 24 Hrs 09/01/17 09/01/17 09/01/17 21:55 21:55 21:55 WBC 6.3 RBC 2.21 L Hgb 6.9 L Hct 22.6 L MCV 102.3 H MCH 31.2 MCHC 30.5 L RDW 16.5 H RDW Differential 62.1 H Plt Count 203 MPV 8.1 Immature Gran % (Auto) 0.300 Neut % (Auto) 79.9 H Lymph % (Auto) 13.3 L Upton % (Auto) 4.9 Eos % (Auto) 1.4 Baso % (Auto) 0.2 Absolute Neuts (auto) 5.0 Absolute Lymphs (auto) 0.84 Total Counted Not Reportable PT 15.5 H INR 1.3 APTT 34.5 Sodium 142 Potassium 2.9 L Chloride 99 Carbon Dioxide 34.0 H Anion Gap 9 BUN 20 H Creatinine 3.41 H Estim Creat Clear Calc 19.91 Est GFR (MDRD) Af Amer 19 L Est GFR (MDRD) Non-Af 16 L BUN/Creatinine Ratio 5.9 L Glucose 218 H Lactic Acid Calcium 7.3 L Total Bilirubin 0.30 AST 15 ALT 13 Alkaline Phosphatase 76 Total Protein 6.6 Albumin 1.9 L Globulin 4.7 H Albumin/Globulin Ratio 0.4 L Blood Type Antibody Screen Antibody Identification Crossmatch 09/01/17 09/01/17 09/01/17 21:55 21:55 22:25 WBC RBC Hgb Hct MCV MCH MCHC RDW RDW Differential Plt Count MPV Immature Gran % (Auto) Neut % (Auto) Lymph % (Auto) Upton % (Auto) Eos % (Auto) Baso % (Auto) Absolute Neuts (auto) Absolute Lymphs (auto) Total Counted PT INR APTT Sodium Potassium Chloride Carbon Dioxide Anion Gap BUN Creatinine Estim Creat Clear Calc Est GFR (MDRD) Af Amer Est GFR (MDRD) Non-Af BUN/Creatinine Ratio Glucose Lactic Acid 3.1 H Calcium Total Bilirubin AST ALT Alkaline Phosphatase Total Protein Albumin Globulin Albumin/Globulin Ratio Blood Type A NEGATIVE Antibody Screen POSITIVE H Antibody Identification Pending Crossmatch See Detail 09/02/17 02:00 WBC RBC Hgb 5.2 L* Hct MCV MCH MCHC RDW RDW Differential Plt Count MPV Immature Gran % (Auto) Neut % (Auto) Lymph % (Auto) Upton % (Auto) Eos % (Auto) Baso % (Auto) Absolute Neuts (auto) Absolute Lymphs (auto) Total Counted PT INR APTT Sodium Potassium Chloride Carbon Dioxide Anion Gap BUN Creatinine Estim Creat Clear Calc Est GFR (MDRD) Af Amer Est GFR (MDRD) Non-Af BUN/Creatinine Ratio Glucose Lactic Acid Calcium Total Bilirubin AST ALT Alkaline Phosphatase Total Protein Albumin Globulin Albumin/Globulin Ratio Blood Type Antibody Screen Antibody Identification Crossmatch Assessment/Plan Active and Suspected Problems Acute blood loss anemia (Acute) 1. Acute blood loss anemia * Secondary to bleeding from the sacral ulcer. Patient to be transfused 2 units of packed red blood cells. I am also going to type and cross an additional 2 units based on what her follow-up hemoglobins or if patient does have more vigorous bleeding again. * Currently, the patient is hemodynamically stable. * Patient will be admitted to the ICU for closer monitoring until we can ensure that she is going to remain stable to go to the floor. 2. Recent pilonidal cyst resection * Dr. Munroe has been contacted by the emergency room and stated that he would see the patient in consultation. * Consult wound care as well. 3. End-stage renal disease * Consult nephrology for continuation of her dialysis. 4. Diabetes mellitus type 1 * Continue with Levemir and log. 5. DVT prophylaxis with SCDs. Chemical prophylaxis is contraindicated in light of the acute blood loss anemia. Code Visit Inpatient E&M: 01951 Init Hosp L3
[2017-09-02] MEDS: Ondansetron 4 MG/2 ML Vial IV (03:40)
[2017-09-02] MEDS: fentaNYL 100 MCG/2 ML Ampul 50 MCG IV (03:40)
[2017-09-02 03:53] LABS: Lactic Acid 3.1 mmol/L (0.4-2.0)
--- NOTE | 2017-09-02 04:30 | NURSING ---
Pt arrives to ICU room. Pt alert and without distress. Buttock wound drsg removed and wound assessed. Small amount of bright red blood observed with large clot. Wound packed tightly with wet kerlix and abd pads.
--- NOTE | 2017-09-02 05:20 | NURSING ---
16f Meyer catheter inserted by Lauri Headley RN. Pt c/o severe discomfort. Urine draining.
[2017-09-02 05:33] LABS: Hematocrit 26.7 % (37-47); Hemoglobin 8.4 g/dl (12.0-15.0); Mean Corp Hgb Conc 31.5 g/gl (32-36); Mean Corpuscular Hgb 32.1 pg (27.0-32.0); Mean Corpuscular Volume 101.9 fL (81-99); Mean Platelet Vol. 8.3 fl (6.2-12.0); Platelet Count 297 K/mm3 (150-450); RBC Distribution Width CV 17.5 % (11.6-14.6); RBC Distribution Width SD 61.6 fl (35.1-43.9); Red Blood Count 2.62 M/mm3 (4.2-5.4); White Blood Count 10.1 K/mm3 (4.4-11.0)
[2017-09-02 05:34] LABS: Scan Indicated on CBC? Y/N NO
--- NOTE | 2017-09-02 05:50 | NURSING ---
Pt requesting sweeney catheter be removed d/t severe discomfort
[2017-09-02 06:06] LABS: Anion Gap 12 (5-15); BUN 26 mg/dL (7-18); BUN/Creat Ratio 6.8 RATIO (10-20); Calcium,Total 7.5 mg/dL (8.5-10.1); Chloride 99 mmol/L (98-107); Creatinine, Serum 3.85 mg/dL (0.55-1.02); EST Glomerular Filtration Rate 14 mL/min (>60); Est Glom Filt Rate - Afr Amer 16 mL/min (>60); Estimated Creatinine Clearance 17.64 ml/min; Glucose 196 mg/dL (74-106); Potassium 3.1 mmol/L (3.5-5.1); Sodium Level 137 mmol/L (136-145)
[2017-09-02] MEDS: metroNIDAZOLE 500 MG Tablet PO ×3 (06:11→21:10)
[2017-09-02] MEDS: Acetaminophen 325 MG Tablet 650 MG PO ×3 (06:19→21:09)
[2017-09-02 06:34] LABS: M R Staph aureus DNA By PCR Negative (Negative); Probe Check PASS; Specimen Processing Control PASS
[2017-09-02] MEDS: HYDROmorphone 2 MG TABLET PO (07:49)
--- NOTE | 2017-09-02 08:16 | PCM.PROGNOTE ---
Patient Problems: Active and Suspected Problems Acute blood loss anemia (Acute) Subjective: Chief complaint: Follow-up after admission for acute on chronic blood loss anemia due to bleeding from pilonidal abscess resection site, recent history of excision of recurrent extensive complicated by pilonidal cyst ulcers with left gluteal extension and necrotizing anal sphincter muscle involvement. Patient seen and examined. No acute events overnight. She complained of generalized weakness, fatigue and dizziness. She denied chest pain or shortness of breath. Denied fever or chills. Her vital signs are stable. - Physical Exam General: Alert, Oriented x3, Cooperative, No apparent distress HEENT: Atraumatic, PERRLA, EOMI Oral: Moist Mucosa, No Gingival or Mucosal Lesions/ Ulcerations Neck: Supple, No JVD, Negative Carotid Bruits, Trachea Midline, Thyroid Normal Size and Texture Lungs: Clear to auscultation, No rhonchi, No wheeze, No rales, Diminished Cardiovascular: Regular rate, Regular Rhythm, Normal S1, Normal S2, No murmurs, PMI Normal Abdomen: Bowel Sounds Present, Soft, Non Tender, Non-Distended, No Hepato-splenomegaly, - - Colostomy bag in place. Extremities: No clubbing, No cyanosis, No edema Skin: No rashes, No breakdown Lymphatic: No Cervical, Supraclavicular, or Inguinal Adenopathy Neurological: Cranial nerves II-XII grossly intact, Motor Exam 5/5 strength throughout Psych/Mental Status: Normal Affect, Appropriate Vital Signs Temp Pulse Resp BP Pulse Ox 98.7 F 89 14 100/86 H 100 09/02/17 06:58 09/02/17 06:58 09/02/17 06:58 09/02/17 06:58 09/02/17 06:58 Oxygen Flow Rate 2 Oxygen Delivery Method Nasal Cannula Weight: 200 lb 9.93 oz Body Mass Index (BMI) 32.3 Intake and Output for Last 24 Hours 08/31/17 09/01/17 09/02/17 23:59 23:59 23:59 Intake Total 676 / 676 Output Total 150 / 150 Balance 526 / 526 Laboratory Tests Past 24 Hrs 09/02/17 09/02/17 09/02/17 03:10 04:35 05:25 WBC 10.1 RBC 2.62 L Hgb 8.4 L Hct 26.7 L MCV 101.9 H MCH 32.1 H MCHC 31.5 L RDW 17.5 H RDW Differential 61.6 H Plt Count 297 MPV 8.3 Sodium Potassium Chloride Carbon Dioxide Anion Gap BUN Creatinine Estim Creat Clear Calc Est GFR (MDRD) Af Amer Est GFR (MDRD) Non-Af BUN/Creatinine Ratio Glucose Lactic Acid 3.1 H Calcium MRSA (PCR) Negative 09/02/17 05:25 WBC RBC Hgb Hct MCV MCH MCHC RDW RDW Differential Plt Count MPV Sodium 137 Potassium 3.1 L Chloride 99 Carbon Dioxide 26.0 Anion Gap 12 BUN 26 H Creatinine 3.85 H Estim Creat Clear Calc 17.64 Est GFR (MDRD) Af Amer 16 L Est GFR (MDRD) Non-Af 14 L BUN/Creatinine Ratio 6.8 L Glucose 196 H Lactic Acid Calcium 7.5 L MRSA (PCR) Assessment/Plan Active and Suspected Problems Acute blood loss anemia (Acute) This is a 41 years old female patient presented to the emergency room because of large amount of bleeding from surgical wound of the left gluteal region that was done for extensive pilonidal cyst ulcers, found to have acute on chronic blood loss anemia requiring blood transfusion. #1 acute on chronic blood loss anemia: Secondary to active bleeding from the surgical site. Hemoglobin was as low as 5.2 g/dL. She received 1 unit of packed RBCs and secondary to running. Today's hemoglobin is 8.4 g/dL. Platelet count is normal. Pro time slightly elevated as well as INR at 1.3. Plan: Complete blood transfusion of the second unit, repeat CBC tomorrow morning. #2 status post extensive excision of recurrent complicated pilonidal cyst ulcers with left gluteal extension and necrotizing anal sphincter muscle involvement: This was done on August 15, 2017. Surgical wound culture revealed enterococcus avium, E. coli and Bacteroides. She is continued on Flagyl. She is afebrile, no leukocytosis. Her lactic acid was elevated which is likely because of the acute blood loss anemia and acute distress. Plastic surgery consulted, Dr. Munroe will see the patient in consultation. #3 hypokalemia: Potassium will be replaced and corrected, repeat BMP tomorrow morning. #4 ESRD on hemodialysis: Patient is on hemodialysis on Mondays, Wednesdays and Fridays. She had a full treatment yesterday. Clinically stable, no evidence of volume overload. BUN and creatinine are her baseline, potassium is low. Nephrology consulted to continue hemodialysis on her regular schedule. #5 type 1 diabetes mellitus: She is on ADA diet, Levemir insulin nightly and pre-meal NovoLog. We will start Accu-Cheks and insulin sliding scale. #6 hypertension: Blood pressure stable, continue Coreg and lisinopril. #7 nonischemic cardia myopathy/chronic systolic CHF: Stable, compensated. Continue Coreg and lisinopril. #8 DVT prophylaxis: SCDs, no chemical prophylaxis because of active bleeding. Other chronic medical problems: #1 depression/anxiety. #2 hyperlipidemia. #3 gastroparesis. #4 obstructive sleep apnea. #5 tobacco abuse. #6 morbid obesity. This note was generated with [employer] dictation software. It may contain incorrect words, spelling, and punctuation that were not noted in checking the note before signing.
--- NOTE | 2017-09-02 09:39 | CASEMGMT ---
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 Patient's sheets were soaked and patient was able to get up and but some the staff know and had a trail of blood following behind her. Given the large amount of bleeding the patient had patient was sent to the emergency room. In the emergency room, patient's hemoglobin was noted to be 5.2. Her hgb on 08/21 was 7.9. Patient is a dialysis patient. Patient is a readmission. Discharged 08/21/17. Was discharged to [facility] and returned with the wound bleeding noted above. Return to [facility] for skilled care. Kellie Link RN, CCM.
--- NOTE | 2017-09-02 09:46 | CASEMGMT ---
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 Patient's sheets were soaked and patient was able to get up and but some the staff know and had a trail of blood following behind her. Given the large amount of bleeding the patient had patient was sent to the emergency room. In the emergency room, patient's hemoglobin was noted to be 5.2. Her hgb on 08/21 was 7.9. Patient is a dialysis patient. Patient is a readmission. Discharged 08/21/17. Was discharged to [facility] and returned with the wound bleeding noted above. Patient does not want to return to [facility]. [place] that they didn't respond as quickly as they should have when she tried to tell someone about the bleeding. Will notify SW regarding other appropriate/available facilities due to she is on dialysis. Kellie Link RN, CCM.
[2017-09-02] MEDS: Pantoprazole Sodium 20 MG Tablet PO (10:22)
[2017-09-02] MEDS: HYDROmorphone 1 MG/ML Syringe IV ×4 (11:20→21:59)
--- NOTE | 2017-09-02 11:21 | PN.SURG_ITS ---
Patient Problems: Active and Suspected Problems Acute blood loss anemia (Acute) Subjective: Postop #18 Patient is known to me. She had surgery on 08/15/17 where she underwent surgical preparation sacral and left gluteal area with excision recurrent extensive complicated pilonidal cyst ulcers with left gluteal extension and necrotizing anal sphincter muscle involvement (152 cm2). There was involvement of some of the sphincter muscle and therefore a diverting colostomy was done. The VAC could not be place because of its location and proximity to the anal opening. On 08/21/17 she was sent to an ECF with Silver dressing changes with Kerlix gauze. Cultures from the surgery showed Enterococcus avium, E.coli, Streptococcus Group G, and Anaerobes. She was sent to the ECF on Vancomycin, Ceftazidime, and Flagyl. She came to the ED last night because of reports of bleeding from the wound that responded to repacking of the wound which needed to be done a few times. She received hemodialysis yesterday and is on anti-coagulation. Her Hgb was 6.9 and then decreased to 5.2. Received PRBC and her Hgb this morning is 8.4. She is currently in the ICU. - Physical Exam General: Alert, Oriented x3 HEENT: PERRLA, EOMI Neck: Supple Skin: Ulcer/ Wound - sacral and left gluteal wound was seen and dressed with Aquacel Silver. Patient tolerated reasonably well. She needed some IV analgesia. The wound is clean with no active bleeding seen. A few small clots were removed from the wound. Vital Signs Temp Pulse Resp BP Pulse Ox 98.7 F 87 24 H 102/45 L 100 09/02/17 09:00 09/02/17 10:00 09/02/17 10:00 09/02/17 10:00 09/02/17 10:00 Oxygen Flow Rate 2 Oxygen Delivery Method Nasal Cannula Weight: 200 lb 9.93 oz Body Mass Index (BMI) 32.3 Intake and Output for Last 24 Hours 08/31/17 09/01/17 09/02/17 23:59 23:59 23:59 Intake Total 1076 / 1076 Output Total 150 / 150 Balance 926 / 926 Laboratory Tests Past 24 Hrs 09/02/17 09/02/17 09/02/17 03:10 04:35 05:25 WBC 10.1 RBC 2.62 L Hgb 8.4 L Hct 26.7 L MCV 101.9 H MCH 32.1 H MCHC 31.5 L RDW 17.5 H RDW Differential 61.6 H Plt Count 297 MPV 8.3 Sodium Potassium Chloride Carbon Dioxide Anion Gap BUN Creatinine Estim Creat Clear Calc Est GFR (MDRD) Af Amer Est GFR (MDRD) Non-Af BUN/Creatinine Ratio Glucose Lactic Acid 3.1 H Calcium MRSA (PCR) Negative 09/02/17 05:25 WBC RBC Hgb Hct MCV MCH MCHC RDW RDW Differential Plt Count MPV Sodium 137 Potassium 3.1 L Chloride 99 Carbon Dioxide 26.0 Anion Gap 12 BUN 26 H Creatinine 3.85 H Estim Creat Clear Calc 17.64 Est GFR (MDRD) Af Amer 16 L Est GFR (MDRD) Non-Af 14 L BUN/Creatinine Ratio 6.8 L Glucose 196 H Lactic Acid Calcium 7.5 L MRSA (PCR) Assessment/Plan Active and Suspected Problems Acute blood loss anemia (Acute) 1. Acute blood loss anemia, acute on chronic, from heparinization at the time of hemodialysis. 2. 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 3. ESRD on dialysis. 4. Diabetes mellitus. 5. Smoker. 6. Open surgical pilonidal wound sacral and left gluteal area. Wound examined and redressed today with Aquacel Silver. Wound looked clean with no active bleeding seen. A few small clots were removed at the time of the dressing change. The dressing will be done daily. Will see how the wound responds when she is dialyzed on Monday. Her operative cultures showed Enterococcus avium, E. coli, Streptococcus Group G and Anaerobes. She was treated with Vancomycin, Ceftazidime, and Flagyl. A wound culture was obtained at the time of the dressing change. Anticipate increased metabolic demands from the large wound. Will check a Prealbumin and encourage nutritional supplementation with protein to help the healing process. Encouraged the patient to stop smoking as it may have deleterious effects on wound healing. After discharge to the [facility] AT THE [facility], can followup at the Wound Center.
--- NOTE | 2017-09-02 11:56 | CASEMGMT ---
Social Work Note Briefly discussed case with RN WINSOME Link. Pt known to SW from previous admission. Had discuss LTAC at that time, but pt was not eligible d/t coding on MS3 unit. Was placed in SNF - [facility] - and is reportedly not returning. Discussed possibility of revisiting LTAC with Kellie Link, now that she will have 300 billing codes in the ICU. Kellie Link to discuss further with pt and SW available to assist as needed. Plan: SNEHA Robles
[2017-09-02] MEDS: dilTIAZem CD 240 MG Capsule PO (12:33)
[2017-09-02] MEDS: Calcium Acetate 667 MG Capsule PO ×2 (12:33→17:08)
[2017-09-02 12:40] LABS: Bedside Glucose 117 mg/dL (70-110)
[2017-09-02] MEDS: Lisinopril 20 MG Tablet PO (13:15)
[2017-09-02 13:44] LABS: Hematocrit 23.1 % (37-47); Hemoglobin 7.5 g/dl (12.0-15.0)
[2017-09-02] MEDS: Carvedilol 25 MG Tablet PO ×2 (14:43→21:10)
[2017-09-02 17:06] LABS: Bedside Glucose 224 mg/dL (70-110)
[2017-09-02] MEDS: Ondansetron ODT 4 MG Tablet PO (17:53)
--- NOTE | 2017-09-02 18:37 | PCM.CONS.R ---
Consultation - Renal 09/02/17 PCP/ Referring MD: Requesting physician: Dr Roman Primary care physician: Christopher Foy Reason for Consultation:: ESRD - History of Present Illness History of Present Illness: The patient is a 41 year old F well known to us. ESRD on HD MWF schedule recent admission with pilonidal cyst, fistula, diverting colostomy pneumonia and CHF admitted now with severe blood loss - Allergies Allergies: Allergies latex Allergy (Verified 08/12/17 02:03) Rash levofloxacin [From Levaquin] Adverse Reaction (Verified 08/12/17 02:03) PT CAN'T REMEMBER PT CAN'T REMEMBER metoclopramide HCl [From Reglan] Adverse Reaction (Verified 08/12/17 02:03) Nausea NSAIDS (Non-Steroidal Anti-Inflamma Adverse Reaction (Verified 08/12/17 02:03) kidney function oxycodone HCl [From Percocet] Adverse Reaction (Verified 08/12/17 02:03) HALLUCINATIONS - Current Medications Current Medications: Current Medications Acetaminophen (Tylenol) 650 mg PO Q6H PRN PRN PRN Reason: MILD PAIN (1-3) Last Admin: 09/02/17 14:44 Dose: 650 mg Alprazolam (Xanax) 0.5 mg PO BID PRN PRN PRN Reason: ANXIETY Calcium Acetate (Phoslo Gel Cap) 667 mg PO TIDCM [facility] Last Admin: 09/02/17 17:08 Dose: 667 mg Carvedilol (Coreg) 25 mg PO BID [facility] Last Admin: 09/02/17 14:43 Dose: 25 mg Dextrose (D50w Syringe) 0 gm IV X1 PRN; Protocol PRN Reason: Hypoglycemia Diltiazem HCl (Cardizem Cd) 240 mg PO DAILY [facility] Last Admin: 09/02/17 12:33 Dose: 240 mg Ergocalciferol (Vitamin D) 50,000 unit PO [facility] Glucagon () 1 mg IM .X1 PRN PRN Reason: Hypoglycemia Hydromorphone HCl (Dilaudid) 2 mg PO Q4H PRN PRN PRN Reason: MOD-SEVERE PAIN (4-10/10) Last Admin: 09/02/17 07:49 Dose: 2 mg Hydromorphone HCl (Dilaudid) 1 mg IV Q4H PRN PRN PRN Reason: SEVERE PAIN (6-10/10) Last Admin: 09/02/17 17:53 Dose: 1 mg Insulin Aspart (Novolog Flexpen (Bkc)) 8 units SC TIDCM [facility] Last Admin: 09/02/17 17:07 Dose: 8 u Insulin Aspart (Novolog Flexpen (Bkc)) 0 units SC ACHS [facility] PRN Reason: Protocol Last Admin: 09/02/17 17:08 Dose: 2 u Insulin Detemir (Levemir (Bkc)) 5 units SC QHS [facility] Lisinopril (Zestril) 20 mg PO DAILY [facility] Last Admin: 09/02/17 13:15 Dose: 20 mg Magnesium Hydroxide (Milk Of Magnesia) 30 ml PO DAILY PRN PRN PRN Reason: Constipation Metronidazole (Flagyl) 500 mg PO TID [facility] Last Admin: 09/02/17 13:15 Dose: 500 mg Ondansetron HCl (Zofran Odt) 4 mg PO Q8H PRN PRN PRN Reason: NAUSEA Last Admin: 09/02/17 17:53 Dose: 4 mg Pantoprazole Sodium (Protonix) 20 mg PO DAILY [facility] Last Admin: 09/02/17 10:22 Dose: 20 mg Promethazine HCl (Phenergan) 25 mg PO Q6H PRN PRN PRN Reason: NAUSEA Last Admin: 09/02/17 06:19 Dose: 25 mg Sodium Bicarbonate (Sodium Bicarbonate) 650 mg PO MOWEFR [facility] - Past Medical History Past Medical History (Chronic Problems): Chronic Problems CAD (coronary artery disease) (Chronic) Anemia, chronic disease (Chronic) Smoker (Chronic) Pilonidal cyst with abscess (Chronic) GABRIEL (obstructive sleep apnea) (Chronic) ESRD on dialysis (Chronic) Depression (Chronic) Anxiety (Chronic) HTN (hypertension) (Chronic) Nonischemic cardiomyopathy (Chronic) With ejection fraction 45 - 50%; with angiographically normal coronary arteries 05/2013; follows up with Dr. Magdaleno S/P repair of PDA (patent ductus arteriosus) (Chronic) At young age Diabetes mellitus type 1 (Chronic) Hyperlipidemia (Chronic) Obesity (Chronic) Systolic congestive heart failure (Chronic) EF 40% Tobacco abuse (Chronic) Iron deficiency anemia due to chronic blood loss (Chronic) Dysmenorrhea history, s/p hysterectomy. Obesity (BMI 30.0-34.9) (Chronic) Gastroparesis (Chronic) - Past Surgical History Surgical History: appendectomy, hysterectomy - and BSO, - - c-sections, L breast I+D for abscess, fistula placement LUE, L ankle surgery, appendectomy, PDA repair. Excision pilonidal cyst ulcer about 4 years ago. - Social History Smoking Status: Current every day smoker - Family History Maternal History Items: Cancer, COPD, Diabetes, Hypertension, Renal Disease, Stroke Paternal History Items: Diabetes Sibling History Items: Cancer, Diabetes Review of Systems Constitutional: Denies: Chills, Fever, Weight Change HEENT: Denies: Head Aches, Sinus Congestion, Sinus Drainage Cardiovascular: Denies: Chest Pain, Palpitations Respiratory: Denies: Cough, Shortness of breath at rest, Sputum production Gastrointestinal: Denies: Abdominal Pain, Nausea, Vomiting Genitourinary: Denies: Dysuria Musculoskeletal: Denies: Joint Pain, Joint Tenderness Skin: Denies: Rash, Wounds Neurological: Denies: Numbness, Tingling, Focal weakness Psychiatric: Denies: Anxiety, Depression, Homicidal Ideations, Suicidal Ideations Hematologic/ Lymphatic: Denies: Easy Bruising, Easy Bleeding Patient Problems: Active and Suspected Problems Acute blood loss anemia (Acute) - Physical Exam General: Alert, Oriented x3, Cooperative HEENT: Atraumatic, PERRLA, EOMI, Normocephalic Neck: Supple, No JVD, Negative Carotid Bruits Lungs: Clear to auscultation, Normal air movement Cardiovascular: Regular rate, No murmurs Abdomen: Bowel Sounds Present, Soft, Non Tender Extremities: No edema, Capillary Refill Less than 3 Seconds Skin: No rashes, No breakdown Musculoskeletal: No Tenderness to Palpation of Joints or Extremities Neurological: Cranial nerves II-XII grossly intact Psych/Mental Status: Normal Affect, Appropriate Vital Signs Temp Pulse Resp BP Pulse Ox 98.0 F 70 18 116/69 100 09/02/17 18:00 09/02/17 18:00 09/02/17 18:00 09/02/17 18:00 09/02/17 18:00 Oxygen Flow Rate 2 Oxygen Delivery Method Nasal Cannula Weight: 91 kg Body Mass Index (BMI) 32.3 Intake and Output for Last 24 Hours 08/31/17 09/01/17 09/02/17 23:59 23:59 23:59 Intake Total 2176 / 2176 Output Total 250 / 250 Balance 1926 / 1926 Microbiology Past 72 Hours 09/02/17 12:00 Gram Stain - Final Wound - Sacral Laboratory Tests Past 24 Hrs 09/02/17 09/02/17 09/02/17 03:10 04:35 05:25 WBC 10.1 RBC 2.62 L Hgb 8.4 L Hct 26.7 L MCV 101.9 H MCH 32.1 H MCHC 31.5 L RDW 17.5 H RDW Differential 61.6 H Plt Count 297 MPV 8.3 Sodium Potassium Chloride Carbon Dioxide Anion Gap BUN Creatinine Estim Creat Clear Calc Est GFR (MDRD) Af Amer Est GFR (MDRD) Non-Af BUN/Creatinine Ratio Glucose Lactic Acid 3.1 H Calcium MRSA (PCR) Negative 09/02/17 09/02/17 05:25 13:25 WBC RBC Hgb 7.5 L Hct 23.1 L MCV MCH MCHC RDW RDW Differential Plt Count MPV Sodium 137 Potassium 3.1 L Chloride 99 Carbon Dioxide 26.0 Anion Gap 12 BUN 26 H Creatinine 3.85 H Estim Creat Clear Calc 17.64 Est GFR (MDRD) Af Amer 16 L Est GFR (MDRD) Non-Af 14 L BUN/Creatinine Ratio 6.8 L Glucose 196 H Lactic Acid Calcium 7.5 L MRSA (PCR) POC Glucose 09/02/17 09/02/17 16:59 12:30 POC Glucose 224 H 117 H Assessment/Plan Active and Suspected Problems Acute blood loss anemia (Acute) ESRD. HD Monday as per schedule Anemia. s.p PRBC. repeat BMP in am. will dialyze if K high
[2017-09-02 21:21] LABS: Bedside Glucose 142 mg/dL (70-110)
[2017-09-02] MEDS: 0.9% NaCl Peripheral Flush Adult/Peds IV ×2 (22:03→22:04)
[2017-09-03] VITALS (22 sets, daily range): BP systolic 114–157; BP diastolic 44–101; PULSE 78–94; RESP 16–30; TEMP 37.1–37.7; O2SAT 94–100
[2017-09-03] MEDS: HYDROmorphone 1 MG/ML Syringe IV ×5 (02:01→20:31)
[2017-09-03] MEDS: 0.9% NaCl Peripheral Flush Adult/Peds IV ×5 (02:01→20:31)
[2017-09-03] MEDS: Acetaminophen 325 MG Tablet 650 MG PO ×2 (03:10→23:56)
[2017-09-03] MEDS: HYDROmorphone 2 MG TABLET PO ×2 (03:15→18:18)
[2017-09-03] MEDS: metroNIDAZOLE 500 MG Tablet PO ×3 (05:05→22:22)
[2017-09-03 05:31] LABS: Absolute Lymphocyte Count 0.71 X10^3/ul (0.83-4.51); Absolute Neutrophil Count 6.1 X10^3/uL (2.0-7.7); Basophil# 0.01 X10^3/uL; Basophil% 0.1 % (0-1); Eosinophil# 0.07 X10^3/uL; Eosinophils% 0.9 % (0-5); Hematocrit 22.9 % (37-47); Hemoglobin 7.3 g/dl (12.0-15.0); Lymphocyte # 0.71 X10^3/ul (4.0); Lymphocyte % 9.4 % (19-41); Mean Corp Hgb Conc 31.9 g/gl (32-36); Mean Corpuscular Hgb 31.5 pg (27.0-32.0); Mean Corpuscular Volume 98.7 fL (81-99); Mean Platelet Vol. 8.4 fl (6.2-12.0); Neutrophil % 80.9 % (47-70); Platelet Count 202 K/mm3 (150-450); RBC Distribution Width CV 18.3 % (11.6-14.6); RBC Distribution Width SD 62.2 fl (35.1-43.9); Red Blood Count 2.32 M/mm3 (4.2-5.4); White Blood Count 7.5 K/mm3 (4.4-11.0)
[2017-09-03 05:32] LABS: POSITIVE COUNT NO; POSITIVE DIFFERENTIAL NO; POSITIVE MORPHOLOGY NO
[2017-09-03 06:05] LABS: Anion Gap 9 (5-15); BUN 43 mg/dL (7-18); BUN/Creat Ratio 7.5 RATIO (10-20); Calcium,Total 7.4 mg/dL (8.5-10.1); Chloride 100 mmol/L (98-107); Creatinine, Serum 5.75 mg/dL (0.55-1.02); EST Glomerular Filtration Rate 9 mL/min (>60); Est Glom Filt Rate - Afr Amer 10 mL/min (>60); Estimated Creatinine Clearance 11.81 ml/min; Glucose 153 mg/dL (74-106); Potassium 4.1 mmol/L (3.5-5.1); Prealbumin 23.1 mg/dL (20.0-40.0); Sodium Level 138 mmol/L (136-145)
--- NOTE | 2017-09-03 07:53 | PN_ITS ---
Patient Problems: Active and Suspected Problems Acute blood loss anemia (Acute) Subjective: Chief complaint: Follow-up after admission for acute on chronic blood loss anemia due to bleeding from pilonidal abscess resection site, recent history of excision of recurrent extensive complicated by pilonidal cyst ulcers with left gluteal extension and necrotizing anal sphincter muscle involvement. Patient seen and examined. No acute events overnight. Today, she is feeling better. Her strength is improved. Denied chest pain or shortness of breath. Denied dizziness or lightheadedness. Her vital signs are stable. - Physical Exam General: Alert, Oriented x3, Cooperative, No apparent distress HEENT: Atraumatic, PERRLA, EOMI Oral: Moist Mucosa, No Gingival or Mucosal Lesions/ Ulcerations Neck: Supple, No JVD, Negative Carotid Bruits, Thyroid Normal Size and Texture Lungs: Clear to auscultation, No rhonchi, No wheeze, No rales, Diminished Cardiovascular: Regular rate, Regular Rhythm, Normal S1, Normal S2, PMI Normal Abdomen: Bowel Sounds Present, Soft, Non Tender, Non-Distended, No Hepato- splenomegaly, - - Colostomy bag in place. Extremities: No clubbing, No cyanosis, No edema Skin: No rashes, Ulcer/ Wound Lymphatic: No Cervical, Supraclavicular, or Inguinal Adenopathy Neurological: Cranial nerves II-XII grossly intact, Neuro grossly intact Psych/Mental Status: Normal Affect, Appropriate Vital Signs Temp Pulse Resp BP Pulse Ox 98.9 F 81 17 115/101 H 96 09/03/17 05:00 09/03/17 07:00 09/03/17 07:00 09/03/17 07:00 09/03/17 07:00 Oxygen Flow Rate 2 Oxygen Delivery Method Nasal Cannula Weight: 204 lb 12.951 oz Body Mass Index (BMI) 32.3 Intake and Output for Last 24 Hours 09/01/17 09/02/17 09/03/17 23:59 23:59 23:59 Intake Total 2431 / 2431 300 / 300 Output Total 300 / 300 0 / 0 Balance 2131 / 2131 300 / 300 Microbiology Past 72 Hours 09/02/17 12:00 Gram Stain - Final Wound - Sacral Laboratory Tests Past 24 Hrs 09/02/17 09/03/17 09/03/17 13:25 05:10 05:10 WBC 7.5 RBC 2.32 L Hgb 7.5 L 7.3 L Hct 23.1 L 22.9 L MCV 98.7 MCH 31.5 MCHC 31.9 L RDW 18.3 H RDW Differential 62.2 H Plt Count 202 MPV 8.4 Immature Gran % (Auto) 0.700 Neut % (Auto) 80.9 H Lymph % (Auto) 9.4 L Hitchcock % (Auto) 8.0 Eos % (Auto) 0.9 Baso % (Auto) 0.1 Absolute Neuts (auto) 6.1 Absolute Lymphs (auto) 0.71 L Total Counted Not Reportable Sodium 138 Potassium 4.1 Chloride 100 Carbon Dioxide 29.0 Anion Gap 9 BUN 43 H Creatinine 5.75 H Estim Creat Clear Calc 11.81 Est GFR (MDRD) Af Amer 10 L Est GFR (MDRD) Non-Af 9 L BUN/Creatinine Ratio 7.5 L Glucose 153 H Calcium 7.4 L Prealbumin 23.1 POC Glucose 09/02/17 09/02/17 09/02/17 21:13 16:59 12:30 POC Glucose 142 H 224 H 117 H Assessment/Plan Active and Suspected Problems Acute blood loss anemia (Acute) This is a 41 years old female patient presented to the emergency room because of large amount of bleeding from surgical wound of the left gluteal region that was done for extensive pilonidal cyst ulcers, found to have acute on chronic blood loss anemia requiring blood transfusion. #1 acute on chronic blood loss anemia: Secondary to active bleeding from the surgical site. She received a total of 3 units of packed RBCs, today's hemoglobin is 7.3 g/dL. According to Dr. Munroe, no evidence of active bleeding from the surgical site/wound at this time. Plan: Transfer to PCU, transfuse 1 more unit of packed RBCs, repeat CBC tomorrow morning. #2 status post extensive excision of recurrent complicated pilonidal cyst ulcers with left gluteal extension and necrotizing anal sphincter muscle involvement: This was done on August 15, 2017. Surgical wound culture revealed enterococcus avium, E. coli and Bacteroides. She is continued on Flagyl. She is afebrile, no leukocytosis. Dr. Munroe evaluated the patient, recommended daily dressing, stated no evidence of active bleeding. Repeat wound cultures sent, pending. Plan to continue Flagyl at this time. #3 hypokalemia: Replaced and corrected, today's potassium is 4.1. #4 ESRD on hemodialysis: Patient is on hemodialysis on Mondays, Wednesdays and Fridays. Nephrology consulted, plan for dialysis tomorrow. #5 type 1 diabetes mellitus: Blood sugar stable, continue ADA diet, Levemir insulin nightly and pre-meal NovoLog. We will start Accu-Cheks and insulin sliding scale. #6 hypertension: Blood pressure stable, continue Coreg and lisinopril. #7 nonischemic cardia myopathy/chronic systolic CHF: Stable, compensated. Continue Coreg and lisinopril. #8 DVT prophylaxis: SCDs, no chemical prophylaxis because of bleeding and anemia. Other chronic medical problems: #1 depression/anxiety. #2 hyperlipidemia. #3 gastroparesis. #4 obstructive sleep apnea. #5 tobacco abuse. #6 morbid obesity. This note was generated with [employer] dictation software. It may contain incorrect words, spelling, and punctuation that were not noted in checking the note before signing. Code Visit Inpatient E&M: 68047 Subs Hosp L2
[2017-09-03] MEDS: Calcium Acetate 667 MG Capsule PO ×3 (09:20→17:34)
[2017-09-03] MEDS: Lisinopril 20 MG Tablet PO (09:43)
[2017-09-03] MEDS: Pantoprazole Sodium 20 MG Tablet PO (09:43)
[2017-09-03] MEDS: dilTIAZem CD 240 MG Capsule PO (09:44)
[2017-09-03] MEDS: Carvedilol 25 MG Tablet PO ×2 (09:44→22:22)
[2017-09-03] MEDS: ALPRAZolam 0.5 MG Tablet PO (10:33)
--- NOTE | 2017-09-03 10:57 | NURSING ---
Wound to sacral/left gluteal cleansed with NSS, Aquacel packed into area, dampened kerlex followed by dry kerlex and covered with ABD pads and secured with medipore tape. Pt premedicated with dilaudid prior to dressing change.
[2017-09-03 12:21] LABS: Bedside Glucose 236 mg/dL (70-110)
[2017-09-03 17:21] LABS: Bedside Glucose 167 mg/dL (70-110)
[2017-09-03 22:30] LABS: Bedside Glucose 153 mg/dL (70-110)
[2017-09-04] VITALS (12 sets, daily range): BP systolic 126–164; BP diastolic 46–67; PULSE 74–95; RESP 16–18; TEMP 36.5–36.9; O2SAT 92–100
[2017-09-04] MEDS: 0.9% NaCl Peripheral Flush Adult/Peds IV ×3 (00:45→10:56)
[2017-09-04] MEDS: HYDROmorphone 1 MG/ML Syringe IV ×4 (00:45→15:27)
[2017-09-04] MEDS: HYDROmorphone 2 MG TABLET PO ×3 (02:43→19:40)
[2017-09-04 06:30] LABS: Anion Gap 9 (5-15); BUN 56 mg/dL (7-18); BUN/Creat Ratio 7.8 RATIO (10-20); Calcium,Total 7.7 mg/dL (8.5-10.1); Chloride 100 mmol/L (98-107); Creatinine, Serum 7.15 mg/dL (0.55-1.02); EST Glomerular Filtration Rate 7 mL/min (>60); Est Glom Filt Rate - Afr Amer 8 mL/min (>60); Glucose 163 mg/dL (74-106); Potassium 3.6 mmol/L (3.5-5.1); Sodium Level 138 mmol/L (136-145)
[2017-09-04] MEDS: metroNIDAZOLE 500 MG Tablet PO ×2 (06:30→14:16)
[2017-09-04 06:41] LABS: Absolute Lymphocyte Count 0.88 X10^3/ul (0.83-4.51); Absolute Neutrophil Count 4.7 X10^3/uL (2.0-7.7); Basophil# 0.03 X10^3/uL; Basophil% 0.5 % (0-1); Eosinophil# 0.15 X10^3/uL; Eosinophils% 2.4 % (0-5); Hemoglobin 8.3 g/dl (12.0-15.0); Lymphocyte # 0.88 X10^3/ul (4.0); Lymphocyte % 14.3 % (19-41); Mean Corp Hgb Conc 31.9 g/gl (32-36); Mean Corpuscular Hgb 31.7 pg (27.0-32.0); Mean Corpuscular Volume 99.2 fL (81-99); Mean Platelet Vol. 8.5 fl (6.2-12.0); Monocyte# 0.37 X10^3/uL; Neutrophil # 4.66 X10^3/uL (2.7-7.7); Neutrophil % 75.8 % (47-70); Platelet Count 194 K/mm3 (150-450); RBC Distribution Width CV 17.2 % (11.6-14.6); RBC Distribution Width SD 58.4 fl (35.1-43.9); Red Blood Count 2.62 M/mm3 (4.2-5.4); White Blood Count 6.2 K/mm3 (4.4-11.0)
[2017-09-04 06:42] LABS: POSITIVE COUNT NO; POSITIVE DIFFERENTIAL NO; POSITIVE MORPHOLOGY NO
[2017-09-04] MEDS: Acetaminophen 325 MG Tablet 650 MG PO (07:04)
[2017-09-04 07:05] LABS: Bedside Glucose 145 mg/dL (70-110)
--- NOTE | 2017-09-04 08:44 | NURSING ---
Pt with fairly new colostomy. appliance is intact to the left lower quadrant. Pt states that the appliance was changed in 09/02/17. States the peristomal skin is intact. pt refusing for this nurse to change appliance to assess skin since it was just changed a couple of days ago. pt able to care for ostomy quite independently. Denies further needs at this time.
[2017-09-04] MEDS: Calcium Acetate 667 MG Capsule PO ×2 (08:47→14:17)
--- NOTE | 2017-09-04 09:03 | NURSING ---
wound photo: sacrum
--- NOTE | 2017-09-04 11:10 | CASEMGMT ---
Per report from Sweta TEJADA CM and Loida LESTER from weekend, pt is from [facility],, but does not want to return there. Pt's mother requested for this RN CM to come to room. This RN CM to room and per pt's mother, 'she will not go back to [facility], I already went and removed all her belongings from there.' Pt's mother states that she has called multiple other local SNF's and they are not able to take pt at this time. Pt asks about [facility], as they attempted to send her there during last visit, but according to charting, pt did not have the 'correct codes' to go to [facility]. Pt was admitted to [facility] during last visit. Pt would like this RN CM to send referral to [facility] at this time. Call placed to Diego from [facility] at this time to make him aware of pt. Monik TEJADA CM
--- NOTE | 2017-09-04 12:22 | PN.RENAL_ITS ---
Patient Problems: Active and Suspected Problems Acute blood loss anemia (Acute) Subjective: Patient was seen today during HD session Patient is tolerating the session well No complaints No nausea No vomiting. No SOB - Physical Exam General: Alert, Oriented x3 HEENT: Atraumatic Oral: Moist Mucosa Neck: Supple, No JVD Lungs: Clear to auscultation Cardiovascular: Regular rate, Regular Rhythm, Normal S1, Normal S2 Abdomen: Bowel Sounds Present, Soft, Non Tender, Non-Distended Extremities: No clubbing, No cyanosis, No edema Skin: No rashes Musculoskeletal: No Tenderness to Palpation of Joints or Extremities Lymphatic: No Cervical, Supraclavicular, or Inguinal Adenopathy Neurological: Cranial nerves II-XII grossly intact, Neuro grossly intact Psych/Mental Status: Normal Affect Vital Signs Temp Pulse Resp BP Pulse Ox 97.9 F 87 18 150/55 H 92 09/04/17 08:30 09/04/17 11:25 09/04/17 08:30 09/04/17 08:30 09/04/17 08:30 Oxygen Flow Rate 2 Oxygen Delivery Method Room Air Weight: 95.1 kg Body Mass Index (BMI) 32.3 Intake and Output for Last 24 Hours 09/02/17 09/03/17 09/04/17 23:59 23:59 23:59 Intake Total 2431 / 2431 1740 / 1740 1350 / 1350 Output Total 300 / 300 0 / 0 1 / 1 Balance 2131 / 2131 1740 / 1740 1349 / 1349 Microbiology Past 72 Hours 09/02/17 12:00 Gram Stain - Final Wound - Sacral Wound Culture - Preliminary GPC Poss Enterococcus sp Presumptive C albicans Laboratory Tests Past 24 Hrs 09/04/17 09/04/17 05:45 05:45 WBC 6.2 RBC 2.62 L Hgb 8.3 L Hct 26.0 L MCV 99.2 H MCH 31.7 MCHC 31.9 L RDW 17.2 H RDW Differential 58.4 H Plt Count 194 MPV 8.5 Immature Gran % (Auto) 1.000 H Neut % (Auto) 75.8 H Lymph % (Auto) 14.3 L Beltrami % (Auto) 6.0 Eos % (Auto) 2.4 Baso % (Auto) 0.5 Absolute Neuts (auto) 4.7 Absolute Lymphs (auto) 0.88 Total Counted Not Reportable Sodium 138 Potassium 3.6 Chloride 100 Carbon Dioxide 29.0 Anion Gap 9 BUN 56 H Creatinine 7.15 H Estim Creat Clear Calc 9.50 Est GFR (MDRD) Af Amer 8 L Est GFR (MDRD) Non-Af 7 L BUN/Creatinine Ratio 7.8 L Glucose 163 H Calcium 7.7 L POC Glucose 09/04/17 09/03/17 09/03/17 06:30 22:20 17:14 POC Glucose 145 H 153 H 167 H 09/03/17 11:55 POC Glucose 236 H Assessment/Plan Active and Suspected Problems Acute blood loss anemia (Acute) 1- ESRD on MWF HD session today . I supervised the session myself. BQ 400, DQ 700, UF 2.5 L. HD access left forearm AVF UF as per the URR goal is 70% Next anticipated HD session 09/06 2- Acute blood loss anemia. s/o 4 RBC units transfusion. Hgb is up to 8.3 3- Hypertension. BP is well controlled. will continue diltiazem+ Coreg + zestril. 4- BMD: on Ca acetate. check P and Ca level. Not on active Vit D . check PTH as outpatient Will continue to follow Maria Isabel Valdivia MD [phone]
[2017-09-04 14:06] LABS: Bedside Glucose 119 mg/dL (70-110)
[2017-09-04] MEDS: dilTIAZem CD 240 MG Capsule PO (14:17)
[2017-09-04] MEDS: Sodium Bicarbonate 650 MG Tablet PO (14:17)
[2017-09-04] MEDS: Pantoprazole Sodium 20 MG Tablet PO (14:17)
[2017-09-04] MEDS: Lisinopril 20 MG Tablet PO (14:17)
[2017-09-04] MEDS: Carvedilol 25 MG Tablet PO (14:17)
--- NOTE | 2017-09-04 14:19 | DIALYSIS ---
HD x 3.5 hours complete. Ran on 3k bath. UF of 1750ml. Pt had some cramping during tx otherwise she tolerated tx well. Dr Valdivia is aware of the cramping during tx. Denies cramping post tx. Used left arm fistula. Grady removed post tx. Report was given to MALLORY Kern.
[2017-09-04] MEDS: Lidocaine/Prilocaine HCl 5 GM Tube TOPICAL (14:20)
--- NOTE | 2017-09-04 14:51 | CASEMGMT ---
Diego from [facility] is here to review chart at this time. Monik TEJADA CM
[2017-09-04] MEDS: Ondansetron ODT 4 MG Tablet PO (17:52)
[2017-09-04 18:01] LABS: Bedside Glucose 193 mg/dL (70-110)
--- NOTE | 2017-09-04 18:03 | PCM.PROGNOTE ---
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 On 08/15/2017 she had extensive debridement of recurrent complicated pilonidal cyst ulcers with gluteal extension necrotizing anal sphincter muscle involvement. On 08/17/2017 she had a laparoscopic transverse colostomy with lysis of adhesions done by Dr. Dill. She was transferred to a [facility] facility on 08/21/2017 on PO metronidazole. Hemoglobin at the time of admission was 6.9 and dropped to 5.2 at its reyna. She has been transfused with 7 units of packed red blood cells while in the hospital. I reviewed the notes from the RN CNReji and the patient's mother does not want her to go back to [facility] care. She is likely more appropriate for an LTAC at this time. She is afebrile and blood pressures are mildly increased. She denies painful sores in her mouth or painful swallowing. She has semi-formed stool in her colostomy bag and she denies any vaginal itching. White blood cell count is normal at 6.2 and the hemoglobin is 8.3 today. Platelets are within normal limits at 194,000. Electrolytes are also within normal limits. Blood sugars are for the most part well controlled. HAs refused insulin a few times. Wound culture at the time of admission had very few white blood cells with no organisms seen. It is growing possible enterococcus species and presumptive Marifer albicans. She is afebrile. - Physical Exam General: Alert, Oriented x3, Cooperative, No apparent distress HEENT: Atraumatic, PERRLA, EOMI Oral: Moist Mucosa, No Gingival or Mucosal Lesions/ Ulcerations Neck: Supple, - - lying on her side with the bed flat without any resp distress Lungs: Clear to auscultation Cardiovascular: Regular rate, Regular Rhythm, Normal S1, Normal S2, No Gallop Abdomen: Bowel Sounds Present, Soft, Non-Distended, - - Colostomy has semi-formed light brown stool Extremities: No clubbing, No cyanosis, No edema Skin: Ulcer/ Wound - I reviewed the photo of the wound taken at the time of the dressing change today Neurological: Cranial nerves II-XII grossly intact, Neuro grossly intact Psych/Mental Status: Normal Affect, Appropriate Vital Signs Temp Pulse Resp BP Pulse Ox 97.7 F L 89 16 159/67 H 100 09/04/17 14:19 09/04/17 14:19 09/04/17 14:19 09/04/17 14:19 09/04/17 14:19 Oxygen Flow Rate 2 Oxygen Delivery Method Room Air Weight: 209 lb 10.554 oz Body Mass Index (BMI) 32.3 Intake and Output for Last 24 Hours 09/02/17 09/03/17 09/04/17 23:59 23:59 23:59 Intake Total 2431 / 2431 1740 / 1740 1350 / 1350 Output Total 300 / 300 0 / 0 3501 / 3501 Balance 2131 / 2131 1740 / 1740 -2151 / -2151 Microbiology Past 72 Hours 09/02/17 12:00 Gram Stain - Final Wound - Sacral Wound Culture - Preliminary GPC Poss Enterococcus sp Presumptive C albicans Laboratory Tests Past 24 Hrs 09/04/17 09/04/17 05:45 05:45 WBC 6.2 RBC 2.62 L Hgb 8.3 L Hct 26.0 L MCV 99.2 H MCH 31.7 MCHC 31.9 L RDW 17.2 H RDW Differential 58.4 H Plt Count 194 MPV 8.5 Immature Gran % (Auto) 1.000 H Neut % (Auto) 75.8 H Lymph % (Auto) 14.3 L Gibson % (Auto) 6.0 Eos % (Auto) 2.4 Baso % (Auto) 0.5 Absolute Neuts (auto) 4.7 Absolute Lymphs (auto) 0.88 Total Counted Not Reportable Sodium 138 Potassium 3.6 Chloride 100 Carbon Dioxide 29.0 Anion Gap 9 BUN 56 H Creatinine 7.15 H Estim Creat Clear Calc 9.50 Est GFR (MDRD) Af Amer 8 L Est GFR (MDRD) Non-Af 7 L BUN/Creatinine Ratio 7.8 L Glucose 163 H Calcium 7.7 L POC Glucose 09/04/17 09/04/17 09/04/17 17:49 14:01 06:30 POC Glucose 193 H 119 H 145 H 09/03/17 22:20 POC Glucose 153 H Assessment/Plan Active and Suspected Problems Acute blood loss anemia (Acute) Impressions 1. acute blood loss from hemorrhage from recent surgical site - no further bleeding and the HGB is stable 2. Hypokalemia - resolved 3. HTN/ESRD on HD/Type 1 DM/HLD - complicate care, management, prognosis and recovery. DC the IV Dilaudid Continue PO Dilaudid for pain control DC the Flagyl - antibiotics were to conclude on 09/01 and she is afebrile with no evidence infection present in the wound Possible DC to LTAC in the next 48-72 hours Code Visit Inpatient E&M: 47440 Subs Hosp L2
--- NOTE | 2017-09-04 18:11 | PN_ITS ---
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 On 2017 she had extensive debridement of recurrent complicated pilonidal cyst ulcers with gluteal extension necrotizing anal sphincter muscle involvement. On 08/17/2017 she had a laparoscopic transverse colostomy with lysis of adhesions done by Dr. Dill. She was transferred to a residential facility on 08/21/2017 on PO metronidazole. Hemoglobin at the time of admission was 6.9 and dropped to 5.2 at its reyna. She has been transfused with 7 units of packed red blood cells while in the hospital. I reviewed the notes from the RN CNReji and the patient's mother does not want her to go back to [facility] with [facility] nursing. She is likely more appropriate for an LTAC at this time. She is afebrile and blood pressures are mildly increased. She denies painful sores in her mouth or painful swallowing. She has semi-formed stool in her colostomy bag and she denies any vaginal itching. White blood cell count is normal at 6.2 and the hemoglobin is 8.3 today. Platelets are within normal limits at 194,000. Electrolytes are also within normal limits. Blood sugars are for the most part well controlled. HAs refused insulin a few times. Wound culture at the time of admission had very few white blood cells with no organisms seen. It is growing possible enterococcus species and presumptive Marifer albicans. She is afebrile. - Physical Exam General: Alert, Oriented x3, Cooperative, No apparent distress HEENT: Atraumatic, PERRLA, EOMI Oral: Moist Mucosa, No Gingival or Mucosal Lesions/ Ulcerations Neck: Supple, - - lying on her side with the bed flat without any resp distress Lungs: Clear to auscultation Cardiovascular: Regular rate, Regular Rhythm, Normal S1, Normal S2, No Gallop Abdomen: Bowel Sounds Present, Soft, Non-Distended, - - Colostomy has semi- formed light brown stool Extremities: No clubbing, No cyanosis, No edema Skin: Ulcer/ Wound - I reviewed the photo of the wound taken at the time of the dressing change today Neurological: Cranial nerves II-XII grossly intact, Neuro grossly intact Psych/Mental Status: Normal Affect, Appropriate Vital Signs Temp Pulse Resp BP Pulse Ox 97.7 F L 89 16 159/67 H 100 09/04/17 14:19 09/04/17 14:19 09/04/17 14:19 09/04/17 14:19 09/04/17 14:19 Oxygen Flow Rate 2 Oxygen Delivery Method Room Air Weight: 209 lb 10.554 oz Body Mass Index (BMI) 32.3 Intake and Output for Last 24 Hours 09/02/17 09/03/17 09/04/17 23:59 23:59 23:59 Intake Total 2431 / 2431 1740 / 1740 1350 / 1350 Output Total 300 / 300 0 / 0 3501 / 3501 Balance 2131 / 2131 1740 / 1740 -2151 / -2151 Microbiology Past 72 Hours 09/02/17 12:00 Gram Stain - Final Wound - Sacral Wound Culture - Preliminary GPC Poss Enterococcus sp Presumptive C albicans Laboratory Tests Past 24 Hrs 09/04/17 09/04/17 05:45 05:45 WBC 6.2 RBC 2.62 L Hgb 8.3 L Hct 26.0 L MCV 99.2 H MCH 31.7 MCHC 31.9 L RDW 17.2 H RDW Differential 58.4 H Plt Count 194 MPV 8.5 Immature Gran % (Auto) 1.000 H Neut % (Auto) 75.8 H Lymph % (Auto) 14.3 L [place] % (Auto) 6.0 Eos % (Auto) 2.4 Baso % (Auto) 0.5 Absolute Neuts (auto) 4.7 Absolute Lymphs (auto) 0.88 Total Counted Not Reportable Sodium 138 Potassium 3.6 Chloride 100 Carbon Dioxide 29.0 Anion Gap 9 BUN 56 H Creatinine 7.15 H Estim Creat Clear Calc 9.50 Est GFR (MDRD) Af Amer 8 L Est GFR (MDRD) Non-Af 7 L BUN/Creatinine Ratio 7.8 L Glucose 163 H Calcium 7.7 L POC Glucose 09/04/17 09/04/17 09/04/17 17:49 14:01 06:30 POC Glucose 193 H 119 H 145 H 09/03/17 22:20 POC Glucose 153 H Assessment/Plan Active and Suspected Problems Acute blood loss anemia (Acute) Impressions 1. acute blood loss from hemorrhage from recent surgical site - no further bleeding and the HGB is stable 2. Hypokalemia - resolved 3. HTN/ESRD on HD/Type 1 DM/HLD - complicate care, management, prognosis and recovery. DC the IV Dilaudid Continue PO Dilaudid for pain control DC the Flagyl - antibiotics were to conclude on 09/01 and she is afebrile with no evidence infection present in the wound Possible DC to LTAC in the next 48-72 hours Code Visit Inpatient E&M: 40716 Subs Hosp L2
[2017-09-04] MEDS: ALPRAZolam 0.5 MG Tablet PO (19:44)
[2017-09-04 22:51] LABS: Bedside Glucose 171 mg/dL (70-110)
[2017-09-05] VITALS (9 sets, daily range): BP systolic 122–165; BP diastolic 59–85; PULSE 75–88; RESP 16; TEMP 36.5–36.9; O2SAT 95–98
[2017-09-05] MEDS: HYDROmorphone 2 MG TABLET PO ×3 (00:23→09:22)
--- NOTE | 2017-09-05 05:00 | NURSING ---
Pt expressed several times tonight and last night, that if she falls asleep, do not wake her. Spoke with patient about vital signs and she expressed that she did not want to be woken up. Pt fell asleep shortly after out conversation. Did not wake pt for vitals due to her declining. Spoke with patient now when she rung out after sleeping. Pt expressed that is what she wanted and does not want to be woken unless she calls out.
[2017-09-05] MEDS: Carvedilol 25 MG Tablet PO ×2 (05:09→09:21)
[2017-09-05] MEDS: metroNIDAZOLE 500 MG Tablet PO ×2 (06:34→13:21)
[2017-09-05 07:05] LABS: Bedside Glucose 111 mg/dL (70-110)
[2017-09-05] MEDS: dilTIAZem CD 240 MG Capsule PO (09:21)
[2017-09-05] MEDS: Calcium Acetate 667 MG Capsule PO ×2 (09:22→11:44)
[2017-09-05] MEDS: FLUoxetine 20 MG Capsule 40 MG PO (09:22)
[2017-09-05] MEDS: Lisinopril 20 MG Tablet PO ×2 (09:22→13:21)
[2017-09-05] MEDS: Pantoprazole Sodium 20 MG Tablet PO (09:22)
[2017-09-05 09:46] LABS: Bedside Glucose 127 mg/dL (70-110)
--- NOTE | 2017-09-05 10:31 | CASEMGMT ---
This RN WINSOME spoke with Diego from [facility] and he states that they can accept pt today. Page sent to Dr. Maya to notify that pt can be transferred to LTACH. When returned with call, Dr. Maya voices understanding and states she will work on disposition. Diego from [facility] notified at this time and asks for us to call him when order placed. Diego [phone]. Pt and family updated at this time, voice understanding. SStaten RN WINSOME
[2017-09-05 11:51] LABS: Bedside Glucose 163 mg/dL (70-110)
--- NOTE | 2017-09-05 12:13 | PCM.TXEXTCAR ---
- Diet 09/02/17 02:59 Diet: Calorie Controlled How many daily calories?: 1800 calorie with Edmar 1 pkt BID - Routine Orders/Code Status Routine Lab Work: - - CBC, renal profile 09/08 - Wound(s) buttocks Wound Type: Pressure Injury itz cleft Wound Type: Open Surgical Wound Dressing Change: Aquacel AG with NS moistened kerlix - Suggestions for Active Care Change Position every (hours): 2 Positions to Avoid: flat on her back - Therapies Weight Bearing: Full weight bearing - Problem/Diagnosis (1) Acute blood loss anemia Status: Acute Current Visit: Yes (2) Anemia, chronic disease Status: Chronic Current Visit: No (3) Anxiety Status: Chronic Current Visit: No (4) CAD (coronary artery disease) Status: Chronic Current Visit: No (5) Depression Status: Chronic Current Visit: No (6) Diabetes mellitus type 1 Status: Chronic Current Visit: No (7) ESRD on dialysis Status: Chronic Current Visit: No (8) Gastroparesis Status: Chronic Current Visit: No (9) HTN (hypertension) Status: Chronic Current Visit: No (10) Hyperlipidemia Status: Chronic Current Visit: No (11) Iron deficiency anemia due to chronic blood loss Status: Resolved Comment: Dysmenorrhea history, s/p hysterectomy. Current Visit: No (12) 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 Current Visit: No (13) Nonischemic cardiomyopathy Status: Chronic Comment: With ejection fraction 45 - 50%; with angiographically normal coronary arteries 05/2013; follows up with Dr. Magdaleno Current Visit: No (14) Obesity (BMI 30.0-34.9) Status: Chronic Current Visit: No (15) GABRIEL (obstructive sleep apnea) Status: Chronic Current Visit: No (16) Pilonidal cyst with abscess Status: Chronic Current Visit: No (17) S/P repair of PDA (patent ductus arteriosus) Status: Chronic Comment: At young age Current Visit: No (18) Smoker Status: Chronic Current Visit: No (19) Systolic congestive heart failure Status: Resolved Current Visit: No - Allergies/Procedures Done in Hospital Allergies/Adverse Reactions: Allergies latex Allergy (Verified 08/12/17 02:03) Rash levofloxacin [From Levaquin] Adverse Reaction (Verified 08/12/17 02:03) PT CAN'T REMEMBER PT CAN'T REMEMBER metoclopramide HCl [From Reglan] Adverse Reaction (Verified 08/12/17 02:03) Nausea NSAIDS (Non-Steroidal Anti-Inflamma Adverse Reaction (Verified 08/12/17 02:03) kidney function oxycodone HCl [From Percocet] Adverse Reaction (Verified 08/12/17 02:03) HALLUCINATIONS Procedures: None - Type of Care/Length of Stay Estimated LOS: Convalescent Care Less Than 30 days Type of Care Needed: LTAC Rehab Potential: Good Prognosis: Good - Additional Orders/Day of Discharge H&P will serve as current which was dated: 09/02/17 Day of Discharge: 09/05/17 - Dietary and Speech Recommendations Dietitian Recommendations/Changes: Recommend 1 pkt Edmar BID for wound healing. - Follow Up Care Primary Care Physician: Christopher Foy MD [Primary Care Provider] - Please follow up with your Primary Care Physician in: Following discharge from the LTAC Please Follow Up With: Kayode Munroe MD When: Following discharge from LTAC
--- NOTE | 2017-09-05 12:24 | PCM.DC.SUM ---
Discharge Date and Diagnosis - Problem List Patient Problems: Active and Suspected Problems Acute blood loss anemia (Acute) Date of Admission: 09/02/17 Date of Discharge: 09/05/17 - Primary Discharge Diagnosis Active and Suspected Problems Acute blood loss anemia (Acute) due to hemorrhage from recent surgical site cleft Hypokalemia - Secondary Discharge Diagnosis Chronic Problems CAD (coronary artery disease) (Chronic) Anemia, chronic disease (Chronic) - ESRD Smoker (Chronic) Pilonidal cyst with abscess (Chronic) - S/P extensive debridement 08/15/2017 S/P diverting transverse colostomy 08/17/2017 GABRIEL (obstructive sleep apnea) (Chronic) ESRD on dialysis (Chronic) Depression (Chronic) Anxiety (Chronic) HTN (hypertension) (Chronic) - not adequately controlled Nonischemic cardiomyopathy (Chronic) With ejection fraction 45 - 50%; with angiographically normal coronary arteries 05/2013; follows up with Dr. Magdaleno S/P repair of PDA (patent ductus arteriosus) (Chronic) At young age Diabetes mellitus type 1 (Chronic) HGBA1C is 7.8% Hyperlipidemia (Chronic) Obesity (BMI 30.0-34.9) (Chronic) Gastroparesis (Chronic) Hospital Course and Treatment Consultations 09/02/17 04:42 Consult: Onc/Wound/metal moulder Routine Comment: Dr. Kayode Munroe-plastic surgery [facility] Operations: None, - - diverting colostomy, pilonidal cyst debridement Procedures: None Summary of Care Provided: Patient is a 41-year-old female with a past medical history of end-stage renal disease on hemodialysis for 2 years, diabetes mellitus type 1 with peripheral neuropathy and gastroparesis, hypertension, hyperlipidemia, tobacco dependence, morbid obesity, left ventricular diastolic dysfunction and coronary artery disease (history of PCI or CABG) managed medically who presented to the ER at [facility] on 09/02/17 from [facility] with bleeding from a recent surgical site on the buttocks and sacrum. On 08/15/2017 she had extensive debridement of recurrent complicated pilonidal cyst/ulcers with gluteal extension and necrotizing anal sphincter muscle involvement. On 08/17/2017 she had a laparoscopic transverse colostomy with lysis of adhesions done by Dr. Zhang. She was transferred to a group home facility on 08/21/2017 on PO metronidazole, ceftazidime and Vanco which were to conclude on 09/01. Hemoglobin at the time of admission was 6.9 and dropped to 5.2 at its reyna. She was transfused with 7 units of packed red blood cells while in the hospital. Hemoglobin on 09/04/2017 was 8.3 and platelets and white blood cell count were within normal limits. She has been afebrile throughout the course of her hospital stay and vital signs have been stable. There is no evidence of wound infection at this time. There is no odor, no purulent discharge and no periwound erythema. There is good granulation tissue in the base of the wound with a very small spot that appears to be necrotic and is approximately the size of a dime. ASA was held at admission due to the bleeding but there has been no further bleeding from the surgical site and she is going to resume ASA on DC. Blood sugars in the hospital have been very well controlled and are all less than 200. She was transferred to an LTAC on 09/05/2017 for continued wound care and hemodialysis. At the time of DC she was alert and appeared in no distress. The lungs were CTA and the heart had a RRR with no MM and no gallop. She has no peripheral edema and no rashes. She will follow-up with Dr. Foy following discharge from LTAC. She will also need to follow-up with Dr. Munroe following discharge from the LTAC. This note was generated with Exara dictation software. It may contain incorrect words, spelling, and punctuation that were not noted in checking the note before signing. Home Medications: Medications to take at Discharge Diltiazem HCl [Tiazac] 240 mg PO DAILY 07/10/15 Aspirin [Aspirin, Baby] 81 mg PO DAILY@0800 01/26/16 Calcium Acetate [Phoslo Gel Cap] 667 mg PO TIDCM 01/26/16 Ergocalciferol [Vitamin D] 50,000 unit PO FR 01/26/16 Insulin Aspart [Novolog Flexpen] 8 units SC TIDCM 01/26/16 Insulin Glargine,Hum.rec.anlog [Lantus] 5 unit SQ QHS 01/09/17 ProMETHAzine [Phenergan] 25 mg PO Q6H PRN PRN #10 tablet 03/06/17 Lisinopril 20 mg PO DAILY 03/29/17 Omeprazole Magnesium [Prilosec Otc] 20 mg PO DAILY 03/29/17 Sodium Bicarbonate 650 mg PO MOWEFR 03/29/17 Acetaminophen [Tylenol Tablet] 650 mg PO Q6H PRN PRN tablet 03/31/17 Carvedilol [Coreg (Beta Chang)] 25 mg PO BID 06/17/17 Ondansetron [Zofran Odt] 4 mg PO Q8H PRN PRN #10 tablet 08/06/17 Fluoxetine HCl 40 mg PO DAILY 09/02/17 ALPRAZolam [Xanax] 0.5 mg PO BID PRN PRN tablet 09/05/17 Glucerna Shake 120 ml PO 4X/DAY liquid 09/05/17 HydrALAZINE [Apresoline] 25 mg PO TID #1 tablet 09/05/17 HydromorphONE [Dilaudid] 2 mg PO Q4H PRN PRN #30 tab 09/05/17 Magnesium Hydroxide [Milk Of Magnesia] 30 ml PO DAILY PRN PRN udc 09/05/17 Following Prescrptions Were Given to Patient: HydromorphONE [Dilaudid] 2 mg PO Q4H PRN PRN #30 tab PRN Reason: Mod-Severe Pain (-05/02) HydrALAZINE [Apresoline] 25 mg PO TID #1 tablet Primary Care Physician: Christopher Foy MD [Primary Care Provider] - Please follow up with your Primary Care Physician in: Following discharge from the LTAC Please Follow Up With: Kayode Munroe MD When: Following discharge from LTAC Disposition: Alf Acute Care Minutes spent on discharge:: 45 Patient Condition:: Stable Meaningful Use Info Meaningful Use Diagnoses (Choose all that apply): None applicable Code Visit Inpatient E&M: 41746 Disch Hosp
--- NOTE | 2017-09-05 12:46 | DS.PCM_ITS ---
Discharge Date and Diagnosis - Problem List Patient Problems: Active and Suspected Problems Acute blood loss anemia (Acute) Date of Admission: 09/02/17 Date of Discharge: 09/05/17 - Primary Discharge Diagnosis Active and Suspected Problems Acute blood loss anemia (Acute) due to hemorrhage from recent surgical site cleft Hypokalemia - Secondary Discharge Diagnosis Chronic Problems CAD (coronary artery disease) (Chronic) Anemia, chronic disease (Chronic) - ESRD Smoker (Chronic) Pilonidal cyst with abscess (Chronic) - S/P extensive debridement 08/15/2017 S/P diverting transverse colostomy 08/17/2017 GABRIEL (obstructive sleep apnea) (Chronic) ESRD on dialysis (Chronic) Depression (Chronic) Anxiety (Chronic) HTN (hypertension) (Chronic) - not adequately controlled Nonischemic cardiomyopathy (Chronic) With ejection fraction 45 - 50%; with angiographically normal coronary arteries 05/2013; follows up with Dr. Magdaleno S/P repair of PDA (patent ductus arteriosus) (Chronic) At young age Diabetes mellitus type 1 (Chronic) HGBA1C is 7.8% Hyperlipidemia (Chronic) Obesity (BMI 30.0-34.9) (Chronic) Gastroparesis (Chronic) Hospital Course and Treatment Consultations 09/02/17 04:42 Consult: Onc/Wound/ticketing clerk Routine Comment: Dr. Kayode Munroe-plastic surgery [facility] Operations: None, - - diverting colostomy, pilonidal cyst debridement Procedures: None Summary of Care Provided: Patient is a 41-year-old female with a past medical history of end-stage renal disease on hemodialysis for 2 years, diabetes mellitus type 1 with peripheral neuropathy and gastroparesis, hypertension, hyperlipidemia, tobacco dependence, morbid obesity, left ventricular diastolic dysfunction and coronary artery disease (history of PCI or CABG) managed medically who presented to the ER at [facility] on 09/02/17 from [facility] with bleeding from a recent surgical site on the buttocks and sacrum. On 08/15/2017 she had extensive debridement of recurrent complicated pilonidal cyst/ulcers with gluteal extension and necrotizing anal sphincter muscle involvement. On 2017 she had a laparoscopic transverse colostomy with lysis of adhesions done by Dr. Zhang. She was transferred to a alf facility on 08/21/2017 on PO metronidazole, ceftazidime and Vanco which were to conclude on 09/01. Hemoglobin at the time of admission was 6.9 and dropped to 5.2 at its reyna. She was transfused with 7 units of packed red blood cells while in the hospital. Hemoglobin on 09/04/2017 was 8.3 and platelets and white blood cell count were within normal limits. She has been afebrile throughout the course of her hospital stay and vital signs have been stable. There is no evidence of wound infection at this time. There is no odor, no purulent discharge and no periwound erythema. There is good granulation tissue in the base of the wound with a very small spot that appears to be necrotic and is approximately the size of a dime. ASA was held at admission due to the bleeding but there has been no further bleeding from the surgical site and she is going to resume ASA on DC. Blood sugars in the hospital have been very well controlled and are all less than 200. She was transferred to an LTAC on 09/05/2017 for continued wound care and hemodialysis. At the time of DC she was alert and appeared in no distress. The lungs were CTA and the heart had a RRR with no MM and no gallop. She has no peripheral edema and no rashes. She will follow-up with Dr. Foy following discharge from LTAC. She will also need to follow-up with Dr. Munroe following discharge from the LTAC. This note was generated with [employer] dictation software. It may contain incorrect words, spelling, and punctuation that were not noted in checking the note before signing. Home Medications: Medications to take at Discharge Diltiazem HCl [Tiazac] 240 mg PO DAILY 07/10/15 Aspirin [Aspirin, Baby] 81 mg PO DAILY@0800 01/26/16 Calcium Acetate [Phoslo Gel Cap] 667 mg PO TIDCM 01/26/16 Ergocalciferol [Vitamin D] 50,000 unit PO FR 01/26/16 Insulin Aspart [Novolog Flexpen] 8 units SC TIDCM 01/26/16 Insulin Glargine,Hum.rec.anlog [Lantus] 5 unit SQ QHS 01/09/17 ProMETHAzine [Phenergan] 25 mg PO Q6H PRN PRN #10 tablet 03/06/17 Lisinopril 20 mg PO DAILY 03/29/17 Omeprazole Magnesium [Prilosec Otc] 20 mg PO DAILY 03/29/17 Sodium Bicarbonate 650 mg PO MOWEFR 03/29/17 Acetaminophen [Tylenol Tablet] 650 mg PO Q6H PRN PRN tablet 03/31/17 Carvedilol [Coreg (Beta Chang)] 25 mg PO BID 06/17/17 Ondansetron [Zofran Odt] 4 mg PO Q8H PRN PRN #10 tablet 08/06/17 Fluoxetine HCl 40 mg PO DAILY 09/02/17 ALPRAZolam [Xanax] 0.5 mg PO BID PRN PRN tablet 09/05/17 Glucerna Shake 120 ml PO 4X/DAY liquid 09/05/17 HydrALAZINE [Apresoline] 25 mg PO TID #1 tablet 09/05/17 HydromorphONE [Dilaudid] 2 mg PO Q4H PRN PRN #30 tab 09/05/17 Magnesium Hydroxide [Milk Of Magnesia] 30 ml PO DAILY PRN PRN udc 09/05/17 Following Prescrptions Were Given to Patient: HydromorphONE [Dilaudid] 2 mg PO Q4H PRN PRN #30 tab PRN Reason: Mod-Severe Pain (-05/02) HydrALAZINE [Apresoline] 25 mg PO TID #1 tablet Primary Care Physician: Christopher Foy MD [Primary Care Provider] - Please follow up with your Primary Care Physician in: Following discharge from the LTAC Please Follow Up With: Kayode Munroe MD When: Following discharge from LTAC Disposition: Care Home Acute Care Minutes spent on discharge:: 45 Patient Condition:: Stable Meaningful Use Info Meaningful Use Diagnoses (Choose all that apply): None applicable Code Visit Inpatient E&M: 45256 Disch Hosp
--- NOTE | 2017-09-05 14:02 | CASEMGMT ---
MALLORY SCHUMACHER called Diego with [employer] to notify of transportation set-up for 1420. MALLORY SCHUMACHER faxed medlist, transport summary, and d/c summary to [phone]. Provided bedside RNRivka, with number for nurse to nurse report, . MALLORY SCHUMACHER will remain available to assist should any other coordination needs arise.
--- NOTE | 2017-09-05 14:10 | NURSING ---
Pt requesting that this nurse change his colostomy appliance. patient had flange already cut to size and prefers to place the Rohith ring himself and get everything ready. all he wants this nurse to do is place the flange around the stoma and snap the pouch in place. patient very particular about how things are done with his care. appliance changed per request.
== END 2017-09-05 14:51 | DRG 811 ==
LOC: ED 23:29 → ICU 09-02 03:13 → PCU 09-03 08:08
PROVIDERS: Hospitalist; Surgery; Emergency Provider Emergency Medicine; Family Provider Family Medicine; PCP Family Medicine; Visit Provider Internal Medicine
DX: D62 Acute posthemorrhagic anemia (principal); N18.6 End stage renal disease; I13.2 Hypertensive heart and chronic kidney disease with heart failure and with stage 5 chronic kidney disease, or end stage renal disease; I42.9 Cardiomyopathy, unspecified; E10.22 Type 1 diabetes mellitus with diabetic chronic kidney disease; K31.84 Gastroparesis; E66.01 Morbid (severe) obesity due to excess calories; E10.42 Type 1 diabetes mellitus with diabetic polyneuropathy; I50.22 Chronic systolic (congestive) heart failure; M96.830 Postprocedural hemorrhage of a musculoskeletal structure following a musculoskeletal system procedure; F17.200 Nicotine dependence, unspecified, uncomplicated; E87.6 Hypokalemia; I25.10 Atherosclerotic heart disease of native coronary artery without angina pectoris; G47.33 Obstructive sleep apnea (adult) (pediatric); F41.9 Anxiety disorder, unspecified; F32.9 Major depressive disorder, single episode, unspecified; E78.5 Hyperlipidemia, unspecified; E10.43 Type 1 diabetes mellitus with diabetic autonomic (poly)neuropathy; Z99.2 Dependence on renal dialysis; Z93.3 Colostomy status; Z68.32 Body mass index [BMI] 32.0-32.9, adult; Z87.74 Personal history of (corrected) congenital malformations of heart and circulatory system; Z79.4 Long term (current) use of insulin; Z79.899 Other long term (current) drug therapy
CPT/HCPCS: 36415; 80048; 80053; 82962; 83605; 84134; 85014; 85018; 85025; 85027; 85610; 85730; 86850; 86870; 86900; 86920; 86922; 87070; 87186; 87205; 87641; 90937; 97162; 97166; 97802; 99285; J7030; J7040; P9016; A4216; G0257; J2405

== ENCOUNTER 2017-10-23 09:29 | Inpatient (IN) | payer MEDICARE, MEDICAID, SELFPAY ==
[2017-10-23] VITALS (10 sets, daily range): BP systolic 155–204; BP diastolic 78–92; PULSE 72–95; RESP 16–22; TEMP 36.2–36.7; O2SAT 98–100; BMI 66.6; BMI 29.9
--- NOTE | 2017-10-23 09:45 | EKG12_ITS ---
Test Reason : N/V Blood Pressure : / mmHG Vent. Rate : 078 BPM Atrial Rate : 078 BPM P-R Int : 138 ms QRS Dur : 086 ms QT Int : 412 ms P-R-T Axes : 039 052 094 degrees QTc Int : 469 ms Normal sinus rhythm Normal ECG Confirmed by DIVINA BEASLEY, SUSI ([id number]), social media editor SHANIA SOLITARIO ([id number]) on 10/27/2017 1:03:40 PM Referred By: KISHAN Confirmed By:SUSI MURCIA MD
[2017-10-23 10:15] LABS: Absolute Lymphocyte Count 1.28 X10^3/ul (0.83-4.51); Absolute Neutrophil Count 5.7 X10^3/uL (2.0-7.7); Basophil# 0.03 X10^3/uL; Basophil% 0.4 % (0-1); Eosinophil# 0.36 X10^3/uL; Eosinophils% 4.7 % (0-5); Hematocrit 30.6 % (37-47); Lymphocyte # 1.28 X10^3/ul (4.0); Lymphocyte % 16.8 % (19-41); Mean Corp Hgb Conc 32.7 g/gl (32-36); Mean Corpuscular Hgb 32.7 pg (27.0-32.0); Mean Platelet Vol. 7.9 fl (6.2-12.0); Monocyte# 0.25 X10^3/uL; Monocyte% 3.3 % (0-10); Neutrophil # 5.66 X10^3/uL (2.7-7.7); Neutrophil % 74.3 % (47-70); Platelet Count 204 K/mm3 (150-450); RBC Distribution Width CV 14.8 % (11.6-14.6); RBC Distribution Width SD 51.9 fl (35.1-43.9); Red Blood Count 3.06 M/mm3 (4.2-5.4); White Blood Count 7.6 K/mm3 (4.4-11.0)
[2017-10-23 10:21] LABS: POSITIVE COUNT NO; POSITIVE DIFFERENTIAL NO; POSITIVE MORPHOLOGY NO
[2017-10-23] MEDS: proMETHazine 25 MG/ML Syringe 12.5 MG IV (10:31)
[2017-10-23] MEDS: 0.9% Normal Saline 1,000 ML 500 ML IV (10:31)
[2017-10-23 10:33] LABS: ALB/GLOB Ratio 0.5 RATIO (0.9-2.4); AST(SGOT) 18 U/L (15-37); Alanine Aminotransfer ALT/SGPT 29 U/L (13-56); Albumin, Serum 2.5 g/dL (3.2-5.0); Alkaline Phosphatase 86 U/L (45-117); Anion Gap 10 (5-15); BUN 55 mg/dL (7-18); BUN/Creat Ratio 8.4 RATIO (10-20); Calcium,Total 8.2 mg/dL (8.5-10.1); Chloride 108 mmol/L (98-107); Creatinine, Serum 6.54 mg/dL (0.55-1.02); EST Glomerular Filtration Rate 7 mL/min (>60); Est Glom Filt Rate - Afr Amer 9 mL/min (>60); Estimated Creatinine Clearance 10.38 ml/min; Globulin 5.4 g/dL (2.2-4.2); Glucose 192 mg/dL (74-106); Lipase 962 U/L (73-393); Potassium 4.5 mmol/L (3.5-5.1); Protein, Total 7.9 g/dL (6.4-8.2); Sodium Level 139 mmol/L (136-145)
--- NOTE | 2017-10-23 10:46 | ED.VISSUMM ---
- ER Visit Summary Date of Service: 10/23/17 Chief Complaint: [Nausea, vomiting, diarrhea] History of Present Illness: The patient is a 41 F [presents the emergency department with issues with nausea and vomiting for more than a year. Patient states that she now cannot keep anything down despite attempting to take Phenergan at home. Patient has been told that she has gastroparesis related to her diabetes. Patient also states that her stools are more watery from her colostomy bag. Patient is concerned because she was treated for C. difficile recently. Patient's concern at the C. difficile may have come back. Patient has had some chills. Patient denies blood in her stool. Patient denies fevers at home. She denies any chest pain or shortness of breath.] Physical Examination: [HEENT-PERRLA, EOMI. Cranial nerves II through XII grossly intact. TMs clear. Mucous membranes moist. No adenopathy. Cardiovascular-regular rate and rhythm without murmur or ectopy Lungs-clear to auscultation, chest wall stable without crepitus or subcu emphysema Abdomen-normoactive bowel sounds, soft, colostomy left lower quadrant. Patient has some mild diffuse tenderness. There is no rebound, rigidity, or perineal signs. Extremities-intact ?4, normal range of motion, normal pulses, atraumatic] Test Results: [EKG obtained on arrival showed a sinus rhythm with a ventricular rate of 78 bpm. CBC with differential showed a white count 7.6, hemoglobin 10, hematocrit 31, platelets 204. Chemistries unremarkable. BUN was 55 and creatinine was 6.54. LFTs were normal. Lipase was elevated 962. Troponin was less than 0.02. Stool was sent for C. difficile and results are pending] Emergency Department Course and Treatment: [Patient was given 500 cc fluid bolus. Patient was medicated with Dilaudid and Phenergan.] Treatment Plan: [Admit for IV fluids and pain control] Disposition: [Admit] Impression: [Abdominal pain/pancreatitis Vomiting Diarrhea-rule out C. difficile] This note was generated with [employer] software. It may contain incorrect words, spelling, and punctuation that were not noted in review of the chart prior to signing ED Disposition - Plan for ED Patient: Chief Complaint: Nausea/Vomiting/Diarrhea Referrals: Christopher Foy MD [Primary Care Provider] -
[2017-10-23] MEDS: HYDROmorphone 1 MG/ML Syringe IV (11:03)
--- NOTE | 2017-10-23 11:25 | CASEMGMT ---
Social Work Note SW in to complete initial assessment as pt to be admitted. Introduced self and role at [facility]. Pt is alert and oriented x4, and presents with flat affect as evidenced by little to not change in expression or tone of voice throughout assessment. Pt reports to lives with her daughter and boyfriend in a one story home. Denies abuse or neglect in the home. Pt has [facility] for RN visits to assist with her wound vac. Pt has dialysis T, Th, Sat at [facility] and claims to have transportation. States that she had a CPAP machine through [facility], but when she was at [facility] and was admitted to the hospital from there in August it went missing (Pt was admitted to [facility] after August admission). Also states she needs a glucometer and to know which brand her insurance will cover. Pt denies hx of substance abuse. Reports hx of anxiety and depression and is prescribed Prozac by Dr. Foy who is her PCP. Preferred pharmacy is [facility]. Pt denies counseling and states that she would like to schedule individual counseling for both her and her daughter at [facility] in [facility]. States that it is difficult to schedule with all of her other needs at this time, but she is open to further discussion in regards to scheduling this. Pt states that her parents are her HCPOA and this should be on file. Confirmed that HCPOA is on file. Unsure of discharge needs at this time, but pt made aware that RN CM or SW will follow upon admission to assess for discharge needs. Placed call to [facility] and updated Kristan that the pt would be admitted to the hospital. Fiorella Martinez, ANATOMY PROFESSOR, INTERNAL COMMUNICATIONS SPECIALIST
--- NOTE | 2017-10-23 12:14 | HP.PCM_ITS ---
Problem List (1) CAD (coronary artery disease) Status: Chronic (2) Anemia, chronic disease Status: Chronic (3) GABRIEL (obstructive sleep apnea) Status: Chronic (4) ESRD on dialysis Status: Chronic (5) Depression Status: Chronic Qualifiers: (6) Anxiety Status: Chronic (7) HTN (hypertension) Status: Chronic Qualifiers: (8) Nonischemic cardiomyopathy Status: Chronic Comment: With ejection fraction 45 - 50%; with angiographically normal coronary arteries 05/2013; follows up with Dr. Magdaleno (9) S/P repair of PDA (patent ductus arteriosus) Status: Chronic Comment: At young age (10) Diabetes mellitus type 1 Status: Chronic Qualifiers: (11) Hyperlipidemia Status: Chronic Qualifiers: (12) Gastroparesis Status: Chronic History of Present Illness Date of Admission: 10/23/17 Chief Complaint: Abdominal pain, nausea, vomiting, diarrhea. The patient is a 41 year old F with multiple medical comorbidities as mentioned above presented to the emergency room because of abdominal pain, nausea, vomiting and diarrhea. Her symptoms started around 3 days ago with epigastric pain, sharp pain, 8 out of 10 in severity, radiates to her back, associated with intractable nausea and vomiting and she was not able to keep anything down to her stomach for the last 3 days and also associated with diarrhea and without aggravating or relieving factors. She has been having profuse watery stool and she needed to change her colostomy bag at least 13 times a day over the last 5 days. She denies fever or chills. She mentioned that she was at [facility] in [place] recently and she was diagnosed with C. difficile colitis and she was treated with antibiotics probably Flagyl. She is not sure if she is done with the 2 weeks of Flagyl treatment for C. difficile colitis. She mentioned that the diarrhea has been going on since that time without any improvement. 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 She has been seeing Dr. Munroe for it. In the emergency room, her blood pressure was elevated, was afebrile, heart rate stable and pulse ox is normal on room air. Her routine blood work is remarkable for chronic anemia with stable hemoglobin, creatinine of 6.54 which is chronic. LFT was normal. Lipase was 962. Troponin is negative. Her EKG revealed normal sinus rhythm without evidence of cardiac arrhythmias or acute ischemic changes. She is being admitted for intractable nausea and vomiting, perfuse diarrhea and mild acute pancreatitis. Past Medical History Past Medical History (Chronic Problems): Chronic Problems CAD (coronary artery disease) (Chronic) Anemia, chronic disease (Chronic) Pilonidal cyst with abscess (Chronic) GABRIEL (obstructive sleep apnea) (Chronic) ESRD on dialysis (Chronic) Depression (Chronic) Anxiety (Chronic) HTN (hypertension) (Chronic) Nonischemic cardiomyopathy (Chronic) With ejection fraction 45 - 50%; with angiographically normal coronary arteries 05/2013; follows up with Dr. Magdaleno S/P repair of PDA (patent ductus arteriosus) (Chronic) At young age Diabetes mellitus type 1 (Chronic) Hyperlipidemia (Chronic) Obesity (BMI 30.0-34.9) (Chronic) Gastroparesis (Chronic) Allergies latex Allergy (Verified 10/23/17 09:32) Rash levofloxacin [From Levaquin] Adverse Reaction (Verified 10/23/17 09:32) PT CAN'T REMEMBER PT CAN'T REMEMBER metoclopramide HCl [From Reglan] Adverse Reaction (Verified 10/23/17 09:32) Nausea NSAIDS (Non-Steroidal Anti-Inflamma Adverse Reaction (Verified 10/23/17 09:32) kidney function oxycodone HCl [From Percocet] Adverse Reaction (Verified 10/23/17 09:32) HALLUCINATIONS Home Medications: Ambulatory Orders Medication Instructions Recorded Diltiazem HCl [Tiazac] 240 mg PO DAILY 07/10/15 Aspirin [Aspirin, Baby] 81 mg PO DAILY@0800 01/26/16 Calcium Acetate [Phoslo Gel Cap] 667 mg PO TIDCM 01/26/16 Ergocalciferol [Vitamin D] 50,000 unit PO FR 01/26/16 Insulin Aspart [Novolog Flexpen] 8 units SC TIDCM 01/26/16 Insulin Glargine,Hum.rec.anlog 5 unit SQ QHS 01/09/17 [Lantus] proMETHazine tablet [Phenergan 25 mg PO Q6H PRN PRN #10 tablet 03/06/17 tablet] Lisinopril 20 mg PO DAILY 03/29/17 Omeprazole Magnesium [Prilosec Otc] 20 mg PO DAILY 03/29/17 Sodium Bicarbonate 650 mg PO TUTHSA 03/29/17 Acetaminophen [Tylenol Tablet] 650 mg PO Q6H PRN PRN tablet 03/31/17 Carvedilol [Coreg (Beta Chang)] 25 mg PO BID 06/17/17 Ondansetron [Zofran Odt] 4 mg PO Q8H PRN PRN #10 tablet 08/06/17 Fluoxetine HCl 40 mg PO DAILY 09/02/17 hydrALAZINE [Apresoline] 25 mg PO TID #1 tablet 09/05/17 Surgical History: appendectomy, hysterectomy - and BSO, - - c-sections, L breast I+D for abscess, fistula placement LUE, L ankle surgery, appendectomy, PDA repair. Excision pilonidal cyst ulcer about 4 years ago. 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 Denies: Chills, Fever Eyes: Denies: Blurred vision, Double vision, Drainage, Redness HEENT: Denies: Difficulty Hearing, Ear Pain, Eye Pain, Nasal Congestion, Sore Throat Cardiovascular: Denies: Chest Pain, Chest Pressure, Heaviness, Palpitations, Syncope Respiratory: Denies: Cough, Pleuritic Pain, Shortness of Breath, Sputum production, Wheezing Gastrointestinal: Reports: Abdominal Pain, Diarrhea, Nausea, Vomiting. Denies: Constipation, Hematochezia, Melena Genitourinary: Denies: Dysuria, Frequency, Hematuria Musculoskeletal: Denies: Arm Pain, Back Pain, Foot Pain Skin: Denies: Dryness, Rash Neurological: Denies: Balance problems, Double vision, Change in Speech, Slurred speech, Headaches, Incoordination, Numbness Psychiatric: Reports: Anxiety, Depression Endocrine: Denies: Change in Body Habitus, Polydipsia VTE Information - Inpt Only VTE Present on Admission: No VTE Mechan Device Prophylaxis: None VTE Pharm Prophylaxis ordered?: Yes - Physical Exam General: Alert, Oriented x3, Cooperative, No apparent distress HEENT: Atraumatic, PERRLA, EOMI Oral: No Gingival or Mucosal Lesions/ Ulcerations, Dry Mucosa Neck: Supple, No JVD, Negative Carotid Bruits, Trachea Midline, Thyroid Normal Size and Texture Lungs: Clear to auscultation, No rhonchi, No wheeze, No rales, Diminished Cardiovascular: Regular rate, Regular Rhythm, Normal S1, Normal S2, PMI Normal Abdomen: Bowel Sounds Present, Soft, Non Tender, Non-Distended, No Hepato- splenomegaly, - - Colostomy bag in place. Extremities: No clubbing, No cyanosis, No edema Skin: No rashes, Ulcer/ Wound, - - Stage III decubitus ulcer of the anal cleft, no evidence of significant erythema or swelling. Lymphatic: No Cervical, Supraclavicular, or Inguinal Adenopathy Neurological: Cranial nerves II-XII grossly intact, Motor Exam 5/5 strength throughout Psych/Mental Status: Normal Affect, Appropriate, Alert and oriented to time, place, person, mood and affect Vital Signs Temp Pulse Resp BP Pulse Ox 97.2 F L 75 18 165/92 H 100 10/23/17 11:55 10/23/17 11:55 10/23/17 11:55 10/23/17 11:55 10/23/17 11:55 Oxygen Delivery Method Room Air Laboratory Tests 3 10/23/17 10/23/17 Range/Units 10:00 10:00 WBC 7.6 (4.4-11.0) K/mm3 RBC 3.06 L (4.2-5.4) M/mm3 Hgb 10.0 L (12.0-15.0) g/dl Hct 30.6 L (37-47) % MCV 100.0 H (81-99) fL MCH 32.7 H (27.0-32.0) pg MCHC 32.7 (32-36) g/gl RDW 14.8 H (11.6-14.6) % RDW Differential 51.9 H (35.1-43.9) fl Plt Count 204 (150-450) K/mm3 MPV 7.9 (6.2-12.0) fl Immature Gran % (Auto) 0.500 (0.0-0.9) % Neut % (Auto) 74.3 H (47-70) % Lymph % (Auto) 16.8 L (19-41) % [place] % (Auto) 3.3 (0-10) % Eos % (Auto) 4.7 (0-5) % Baso % (Auto) 0.4 (0-1) % Absolute Neuts (auto) 5.7 (2.0-7.7) X10^3/uL Absolute Lymphs (auto) 1.28 (0.83-4.51) X10^3/ul Total Counted Not Reportable Sodium 139 (136-145) mmol/L Potassium 4.5 (3.5-5.1) mmol/L Chloride 108 H (98-107) mmol/L Carbon Dioxide 21.0 (21.0-32.0) mmol/L Anion Gap 10 (5-15) BUN 55 H (7-18) mg/dL Creatinine 6.54 H (0.55-1.02) mg/dL Estim Creat Clear Calc 10.38 ml/min Est GFR (MDRD) Af Amer 9 L (>60) mL/min Est GFR (MDRD) Non-Af 7 L (>60) mL/min BUN/Creatinine Ratio 8.4 L (10-20) RATIO Glucose 192 H (74-106) mg/dL Calcium 8.2 L (8.5-10.1) mg/dL Total Bilirubin 0.20 (0.20-1.00) mg/dL AST 18 (15-37) U/L ALT 29 (13-56) U/L Alkaline Phosphatase 86 (45-117) U/L Troponin I < 0.02 (<0.06) ng/mL Total Protein 7.9 (6.4-8.2) g/dL Albumin 2.5 L (3.2-5.0) g/dL Globulin 5.4 H (2.2-4.2) g/dL Albumin/Globulin Ratio 0.5 L (0.9-2.4) RATIO Lipase 962 H (73-393) U/L Assessment/Plan This is a 41 years old female patient presented to the medicine because of epigastric pain, nausea, vomiting and diarrhea and she was found to have mild acute pancreatitis and also she had recent history of C. difficile colitis and she was clinically dehydrated as well. #1 mild acute pancreatitis: With unclear etiology. Patient denied alcohol drinking. She is not on medication can cause pancreatitis. Her LFT was normal , gallstone pancreatitis is unlikely. Plan: Admit to [facility] floor, cardiac monitoring, keep on clear liquids, IV fluids, replace electrolytes as appropriate, IV morphine as needed for pain, IV antiemetics, repeat CMP and CBC as well as lipase tomorrow morning, PT OT evaluation and treatment. #2 intractable nausea and vomiting: Could be due to viral gastroenteritis, C. difficile colitis or gastroparesis. Patient has not been able to keep anything down to her stomach for the last 3 days. Plan: IV fluids, IV Phenergan, IV Zofran, IV Pepcid twice daily. #3 acute diarrhea illness: In context of recent history of C. difficile colitis. Her stool came back positive for toxigenic C. difficile DNA. Patient is not sure if she is done with treatment for C. difficile and she mentioned that she was on Flagyl, not sure. Plan: Start oral vancomycin, IV fluids as above. 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 According to the patient, she supposed to have wound VAC inserted today. Plan: Wound care nurse consult. #5 ESRD on hemodialysis: Nephrology consult, continue dialysis on Tuesdays, and Saturdays. #6 type 1 diabetes mellitus: Clear liquids, IV fluids, Accu-Cheks, insulin sliding scale, continue Levemir nightly, hold NovoLog pre-meals. #7 hypertension: Blood pressure was elevated. Continue Coreg and oral hydralazine as well as lisinopril, start IV hydralazine as needed. #8 chronic anemia: Secondary to anemia of chronic disease, hemoglobin is stable at baseline. #9 nonischemic cardiomyopathy/chronic systolic CHF: Stable, clinically compensated, no acute issues. Continue Coreg, lisinopril, gentle IV fluids for hydration to avoid volume overload. #10 gastroparesis: Plan as above. #11 DVT prophylaxis: Subcu heparin. This note was generated with [employer] dictation software. It may contain incorrect words, spelling, and punctuation that were not noted in checking the note before signing. Code Visit Inpatient E&M: 46459 Init Hosp L3
--- NOTE | 2017-10-23 12:24 | NURSING ---
Just got off the phone with lab. Was informed that stool is Positive for CDiff.
[2017-10-23] MEDS: Morphine 2 MG/ML Syringe IV ×3 (13:20→21:59)
[2017-10-23] MEDS: Ondansetron 4 MG/2 ML Vial IV ×2 (13:20→20:02)
[2017-10-23] MEDS: 0.9% Normal Saline 1,000 ML 75 ML IV ×2 (13:20→21:58)
[2017-10-23 13:29] LABS: Mucous, Urine 0 SEEN /hpf (<or=2+); Red Blood Cells-Urine 0 SEEN /hpf (0-5)
[2017-10-23 13:31] LABS: Color, Urine Yellow (Yellow); Glucose, Dipstick 250 mg/dl (Normal); Ketone-Dipstick Negative (Negative); Leukocyte Esterase-Dipstick 25 /ul (Negative); Nitrite-Dipstick Negative (Negative); Occult Blood-Urine 25 /ul (Negative); Protein-Dipstick 100 mg/dl (Negative); Specific Gravity, Urine 1.005 (1.002-1.030); Urine Bilirubin Dipstick Negative (Negative); Urine Clarity Sl. Cloudy (Clear); Urine Urobilinogen Normal (Normal)
[2017-10-23 13:35] LABS: Bedside Glucose 129 mg/dL (70-110)
[2017-10-23 13:43] LABS: Bacteria 1+ /hpf (None Seen); Squamous Epithelial Cells - UA 25-50 SEEN /hpf (5-10); White Blood Cells 0-5 SEEN /hpf (0-5)
[2017-10-23] MEDS: Calcium Acetate 667 MG Capsule PO ×2 (13:50→17:58)
[2017-10-23] MEDS: hydrALAZINE 25 MG Tablet PO ×2 (14:02→21:58)
--- NOTE | 2017-10-23 15:55 | NURSING ---
wound photo: sacrum
[2017-10-23 16:06] LABS: Bedside Glucose 178 mg/dL (70-110)
[2017-10-23] MEDS: Carvedilol 12.5 MG Tablet 25 MG PO (21:58)
[2017-10-23 22:16] LABS: Bedside Glucose 257 mg/dL (70-110)
[2017-10-23] MEDS: proMETHazine 25 MG/ML Syringe 6.25 MG IV (23:47)
[2017-10-24] VITALS (12 sets, daily range): BP systolic 133–152; BP diastolic 70–76; PULSE 72–83; RESP 16–18; TEMP 36.2–36.6; O2SAT 95–100
[2017-10-24] MEDS: Morphine 2 MG/ML Syringe IV ×6 (02:02→22:50)
[2017-10-24] MEDS: Ondansetron 4 MG/2 ML Vial IV ×3 (05:20→23:46)
[2017-10-24] MEDS: hydrALAZINE 25 MG Tablet PO ×2 (05:55→17:21)
[2017-10-24 06:51] LABS: Bedside Glucose 89 mg/dL (70-110)
[2017-10-24 07:20] LABS: ALB/GLOB Ratio 0.5 RATIO (0.9-2.4); AST(SGOT) 10 U/L (15-37); Alanine Aminotransfer ALT/SGPT 23 U/L (13-56); Albumin, Serum 2.2 g/dL (3.2-5.0); Alkaline Phosphatase 74 U/L (45-117); Anion Gap 10 (5-15); BUN 50 mg/dL (7-18); BUN/Creat Ratio 8.3 RATIO (10-20); Chloride 112 mmol/L (98-107); Creatinine, Serum 6.02 mg/dL (0.55-1.02); EST Glomerular Filtration Rate 8 mL/min (>60); Est Glom Filt Rate - Afr Amer 10 mL/min (>60); Estimated Creatinine Clearance 11.28 ml/min; Globulin 4.8 g/dL (2.2-4.2); Glucose 88 mg/dL (74-106); Lipase 399 U/L (73-393); Potassium 4.3 mmol/L (3.5-5.1); Sodium Level 141 mmol/L (136-145)
[2017-10-24 07:30] LABS: Absolute Lymphocyte Count 1.82 X10^3/ul (0.83-4.51); Basophil# 0.02 X10^3/uL; Basophil% 0.3 % (0-1); Eosinophil# 0.36 X10^3/uL; Eosinophils% 5.6 % (0-5); Hematocrit 28.2 % (37-47); Hemoglobin 9.3 g/dl (12.0-15.0); Lymphocyte # 1.82 X10^3/ul (4.0); Lymphocyte % 28.3 % (19-41); Mean Corpuscular Hgb 32.3 pg (27.0-32.0); Mean Corpuscular Volume 97.9 fL (81-99); Mean Platelet Vol. 8.1 fl (6.2-12.0); Monocyte# 0.23 X10^3/uL; Monocyte% 3.6 % (0-10); Platelet Count 150 K/mm3 (150-450); RBC Distribution Width CV 15.1 % (11.6-14.6); RBC Distribution Width SD 54.1 fl (35.1-43.9); Red Blood Count 2.88 M/mm3 (4.2-5.4); White Blood Count 6.4 K/mm3 (4.4-11.0)
[2017-10-24 07:35] LABS: POSITIVE COUNT NO; POSITIVE DIFFERENTIAL NO; POSITIVE MORPHOLOGY NO
--- NOTE | 2017-10-24 08:32 | NURSING ---
Removed colostomy appliance to assess peristomal skin. there is a small amount of champion loose stool noted in the pouch. there are a few areas of macerated skin around the stoma. cleansed peristomal skin with Dial soap and warm water. pat dry. applied small amount of stoma powder to the macerated skin. stoma sits slightly above skin level. measures approx 1 1/4 and is oval in shape. applied a 2 piece flat Soumya appliance with a small amount of stoma paste. pt tolerated well.
[2017-10-24 13:00] LABS: Bedside Glucose 113 mg/dL (70-110)
--- NOTE | 2017-10-24 13:03 | PCM.CONS.R ---
Problem List (1) ESRD on dialysis Status: Chronic Consultation - Renal 10/24/17 PCP/ Referring MD: Requesting physician: Dr Soler Primary care physician: Christopher Foy Reason for Consultation:: ESRD - History of Present Illness History of Present Illness: The patient is a 41 year old F well known to us. ESRD on HD TTS schedule. Access if left arm AVF. several hospitalizations recently. fistula around anus, s/p diverting colostomy, wound vac. [facility] [place] [facility] got discharged admitted with N/V/D. being treated for acute pancreatitis - Allergies Allergies: Allergies latex Allergy (Verified 10/23/17 12:15) Rash levofloxacin [From Levaquin] Adverse Reaction (Verified 10/23/17 12:15) PT CAN'T REMEMBER PT CAN'T REMEMBER metoclopramide HCl [From Reglan] Adverse Reaction (Verified 10/23/17 12:15) Nausea NSAIDS (Non-Steroidal Anti-Inflamma Adverse Reaction (Verified 10/23/17 12:15) kidney function oxycodone HCl [From Percocet] Adverse Reaction (Verified 10/23/17 12:15) HALLUCINATIONS - Current Medications Current Medications: Current Medications Aspirin (Aspirin, Baby) 81 mg PO DAILY@0800 [facility] Calcium Acetate (Phoslo Gel Cap) 667 mg PO TIDCM [facility] Last Admin: 10/23/17 17:58 Dose: 667 mg Carvedilol (Coreg) 25 mg PO BID [facility] Last Admin: 10/23/17 21:58 Dose: 25 mg Dextrose (D50w Syringe) 0 gm IV X1 PRN; Protocol PRN Reason: Hypoglycemia Diltiazem HCl (Cardizem Cd) 240 mg PO DAILY [facility] Fluoxetine HCl (Prozac) 40 mg PO DAILY [facility] Glucagon () 1 mg IM .X1 PRN PRN Reason: Hypoglycemia Heparin Sodium (Porcine) (Heparin Na) 5,000 unit SC BID [facility] Last Admin: 10/23/17 21:58 Dose: 5,000 u Hydralazine HCl (Apresoline) 25 mg PO TID [facility] Last Admin: 10/24/17 05:55 Dose: 25 mg Hydralazine HCl (Apresoline Iv) 10 mg IV Q6H PRN PRN PRN Reason: for SBP>160 Sodium Chloride () 1,000 mls @ 75 mls/hr IV .[id number] [facility] Last Admin: 10/23/17 21:58 Dose: 75 mls/hr Famotidine (Pepcid 20mg) 20 mg in 50 mls @ 150 mls/hr IV Q12 [facility] Last Admin: 10/23/17 21:59 Dose: 150 mls/hr Insulin Aspart (Novolog Flexpen ([facility])) 0 units SC ACHS [place] PRN Reason: Protocol Last Admin: 10/24/17 13:01 Dose: Not Given Insulin Detemir (Levemir ([facility])) 5 units SC QHS [facility] Last Admin: 10/23/17 22:00 Dose: 5 u Lisinopril (Zestril) 20 mg PO DAILY [facility] Morphine Sulfate () 1 - 2 mg IV Q4H PRN PRN PRN Reason: SEVERE PAIN (6-10/10) Last Admin: 10/24/17 10:30 Dose: 2 mg Nutritional Formula (Lactose Free) (Ensure Clear) 120 ml PO 4X/DAY [facility] Last Admin: 10/24/17 12:23 Dose: Not Given Ondansetron HCl (Zofran) 4 mg IV Q6H PRN PRN PRN Reason: NAUSEA/VOMITING Last Admin: 10/24/17 05:20 Dose: 4 mg Promethazine HCl (Phenergan Iv) 6.25 mg IV Q6H PRN PRN PRN Reason: NAUSEA/VOMITING Last Admin: 10/23/17 23:47 Dose: 6.25 mg Sodium Bicarbonate (Sodium Bicarbonate) 650 mg PO [facility] Sodium Chloride () 5 - 30 ml IV UD PRN PRN Reason: SALINE FLUSH Vancomycin HCl (Vancomycin 125mg/5ml Susp) 125 mg PO Q6 [facility] Last Admin: 10/24/17 05:55 Dose: 125 mg - Past Medical History Past Medical History (Chronic Problems): Chronic Problems CAD (coronary artery disease) (Chronic) Anemia, chronic disease (Chronic) Pilonidal cyst with abscess (Chronic) GABRIEL (obstructive sleep apnea) (Chronic) ESRD on dialysis (Chronic) Depression (Chronic) Anxiety (Chronic) HTN (hypertension) (Chronic) Nonischemic cardiomyopathy (Chronic) With ejection fraction 45 - 50%; with angiographically normal coronary arteries 05/2013; follows up with Dr. Magadleno S/P repair of PDA (patent ductus arteriosus) (Chronic) At young age Diabetes mellitus type 1 (Chronic) Hyperlipidemia (Chronic) Obesity (BMI 30.0-34.9) (Chronic) Gastroparesis (Chronic) - Past Surgical History Surgical History: appendectomy, hysterectomy - and BSO, - - c-sections, L breast I+D for abscess, fistula placement LUE, L ankle surgery, appendectomy, PDA repair. Excision pilonidal cyst ulcer about 4 years ago. - Social History Smoking Status: Current some day smoker Alcohol: None Drugs: None - Family History Maternal History Items: Cancer, COPD, Diabetes, Hypertension, Renal Disease, Stroke Paternal History Items: Diabetes Sibling History Items: Cancer, Diabetes Review of Systems Constitutional: Denies: Chills, Fever, Weight Change HEENT: Denies: Head Aches, Sinus Congestion, Sinus Drainage Cardiovascular: Denies: Chest Pain, Palpitations Respiratory: Denies: Cough, Shortness of breath at rest, Sputum production Gastrointestinal: Denies: Abdominal Pain, Nausea, Vomiting Genitourinary: Denies: Dysuria Musculoskeletal: Denies: Joint Pain, Joint Tenderness Skin: Denies: Rash, Wounds Neurological: Denies: Numbness, Tingling, Focal weakness Psychiatric: Denies: Anxiety, Depression, Homicidal Ideations, Suicidal Ideations Hematologic/ Lymphatic: Denies: Easy Bruising, Easy Bleeding - Physical Exam General: Alert, Oriented x3, Cooperative HEENT: Atraumatic, PERRLA, EOMI, Normocephalic Neck: Supple, No JVD, Negative Carotid Bruits Lungs: Clear to auscultation, Normal air movement Cardiovascular: Regular rate, No murmurs Abdomen: Bowel Sounds Present, Soft, Non Tender Extremities: No edema, Capillary Refill Less than 3 Seconds Skin: No rashes, No breakdown Musculoskeletal: No Tenderness to Palpation of Joints or Extremities Neurological: Cranial nerves II-XII grossly intact Psych/Mental Status: Normal Affect, Appropriate Vital Signs Temp Pulse Resp BP Pulse Ox 97.5 F L 79 18 152/76 H 100 10/24/17 02:17 10/24/17 05:55 10/24/17 02:17 10/24/17 02:17 10/24/17 02:17 Oxygen Flow Rate (L/min) 2 Oxygen Delivery Method Room Air Weight: 84.4 kg Body Mass Index (BMI) 29.9 Intake and Output for Last 24 Hours 10/22/17 10/23/17 10/24/17 23:59 23:59 23:59 Intake Total 1122 / 1122 402 / 402 Output Total 600 / 600 200 / 200 Balance 522 / 522 202 / 202 Laboratory Tests Past 24 Hrs 10/23/17 10/24/17 10/24/17 13:20 06:45 06:45 WBC 6.4 RBC 2.88 L Hgb 9.3 L Hct 28.2 L MCV 97.9 MCH 32.3 H MCHC 33.0 RDW 15.1 H RDW Differential 54.1 H Plt Count 150 MPV 8.1 Immature Gran % (Auto) 0.200 Neut % (Auto) 62.0 Lymph % (Auto) 28.3 [place] % (Auto) 3.6 Eos % (Auto) 5.6 H Baso % (Auto) 0.3 Absolute Neuts (auto) 4.0 Absolute Lymphs (auto) 1.82 Total Counted Not Reportable Sodium 141 Potassium 4.3 Chloride 112 H Carbon Dioxide 19.0 L Anion Gap 10 BUN 50 H Creatinine 6.02 H Estim Creat Clear Calc 11.28 Est GFR (MDRD) Af Amer 10 L Est GFR (MDRD) Non-Af 8 L BUN/Creatinine Ratio 8.3 L Glucose 88 Calcium 8.0 L Total Bilirubin 0.20 AST 10 L ALT 23 Alkaline Phosphatase 74 Total Protein 7.0 Albumin 2.2 L Globulin 4.8 H Albumin/Globulin Ratio 0.5 L Lipase 399 H Urine Color Yellow Urine Clarity Sl. Cloudy Urine pH 7.0 Ur Specific [place] 1.005 Urine Protein 100 H Urine Glucose (UA) 250 H Urine Ketones Negative Urine Occult Blood 25 H Urine Nitrite Negative Urine Bilirubin Negative Urine Urobilinogen Normal Ur Leukocyte Esterase 25 H Urine RBC 0 SEEN Urine WBC 0-5 SEEN Ur Squamous Epith Cells 25-50 SEEN Urine Bacteria 1+ Urine Mucus 0 SEEN POC Glucose 10/24/17 10/24/17 10/23/17 12:54 06:44 21:54 POC Glucose 113 H 89 257 H 10/23/17 10/23/17 15:52 13:28 POC Glucose 178 H 129 H Assessment/Plan ESRD. Dialysis today. seen on dialysis. see orders/ flowsheets. no complaints anemia. Hb is at goal Pancreatitis. on IV fluids. clinically better since admission.
--- NOTE | 2017-10-24 13:07 | CON.PCM_ITS ---
Problem List (1) ESRD on dialysis Status: Chronic Consultation - Renal 10/24/17 PCP/ Referring MD: Requesting physician: Dr Soler Primary care physician: Christopher Foy Reason for Consultation:: ESRD - History of Present Illness History of Present Illness: The patient is a 41 year old F well known to us. ESRD on HD TTS schedule. Access if left arm AVF. several hospitalizations recently. fistula around anus, s/p diverting colostomy , wound vac. was in [facility] [place] recently got discharged admitted with N/V/D. being treated for acute pancreatitis - Allergies Allergies: Allergies latex Allergy (Verified 10/23/17 12:15) Rash levofloxacin [From Levaquin] Adverse Reaction (Verified 10/23/17 12:15) PT CAN'T REMEMBER PT CAN'T REMEMBER metoclopramide HCl [From Reglan] Adverse Reaction (Verified 10/23/17 12:15) Nausea NSAIDS (Non-Steroidal Anti-Inflamma Adverse Reaction (Verified 10/23/17 12:15) kidney function oxycodone HCl [From Percocet] Adverse Reaction (Verified 10/23/17 12:15) HALLUCINATIONS - Current Medications Current Medications: Current Medications Aspirin (Aspirin, Baby) 81 mg PO DAILY@0800 [facility] Calcium Acetate (Phoslo Gel Cap) 667 mg PO TIDCM [facility] Last Admin: 10/23/17 17:58 Dose: 667 mg Carvedilol (Coreg) 25 mg PO BID [facility] Last Admin: 10/23/17 21:58 Dose: 25 mg Dextrose (D50w Syringe) 0 gm IV X1 PRN; Protocol PRN Reason: Hypoglycemia Diltiazem HCl (Cardizem Cd) 240 mg PO DAILY [facility] Fluoxetine HCl (Prozac) 40 mg PO DAILY [facility] Glucagon () 1 mg IM .X1 PRN PRN Reason: Hypoglycemia Heparin Sodium (Porcine) (Heparin Na) 5,000 unit SC BID [facility] Last Admin: 10/23/17 21:58 Dose: 5,000 u Hydralazine HCl (Apresoline) 25 mg PO TID [facility] Last Admin: 10/24/17 05:55 Dose: 25 mg Hydralazine HCl (Apresoline Iv) 10 mg IV Q6H PRN PRN PRN Reason: for SBP>160 Sodium Chloride () 1,000 mls @ 75 mls/hr IV .[id number] [facility] Last Admin: 10/23/17 21:58 Dose: 75 mls/hr Famotidine (Pepcid 20mg) 20 mg in 50 mls @ 150 mls/hr IV Q12 [facility] Last Admin: 10/23/17 21:59 Dose: 150 mls/hr Insulin Aspart (Novolog Flexpen ([facility])) 0 units SC ACHS [place] PRN Reason: Protocol Last Admin: 10/24/17 13:01 Dose: Not Given Insulin Detemir (Levemir ([facility])) 5 units SC QHS [facility] Last Admin: 10/23/17 22:00 Dose: 5 u Lisinopril (Zestril) 20 mg PO DAILY [facility] Morphine Sulfate () 1 - 2 mg IV Q4H PRN PRN PRN Reason: SEVERE PAIN (6-10/10) Last Admin: 10/24/17 10:30 Dose: 2 mg Nutritional Formula (Lactose Free) (Ensure Clear) 120 ml PO 4X/DAY [facility] Last Admin: 10/24/17 12:23 Dose: Not Given Ondansetron HCl (Zofran) 4 mg IV Q6H PRN PRN PRN Reason: NAUSEA/VOMITING Last Admin: 10/24/17 05:20 Dose: 4 mg Promethazine HCl (Phenergan Iv) 6.25 mg IV Q6H PRN PRN PRN Reason: NAUSEA/VOMITING Last Admin: 10/23/17 23:47 Dose: 6.25 mg Sodium Bicarbonate (Sodium Bicarbonate) 650 mg PO [facility] Sodium Chloride () 5 - 30 ml IV UD PRN PRN Reason: SALINE FLUSH Vancomycin HCl (Vancomycin 125mg/5ml Susp) 125 mg PO Q6 [facility] Last Admin: 10/24/17 05:55 Dose: 125 mg - Past Medical History Past Medical History (Chronic Problems): Chronic Problems CAD (coronary artery disease) (Chronic) Anemia, chronic disease (Chronic) Pilonidal cyst with abscess (Chronic) GABRIEL (obstructive sleep apnea) (Chronic) ESRD on dialysis (Chronic) Depression (Chronic) Anxiety (Chronic) HTN (hypertension) (Chronic) Nonischemic cardiomyopathy (Chronic) With ejection fraction 45 - 50%; with angiographically normal coronary arteries 05/2013; follows up with Dr. Magdaleno S/P repair of PDA (patent ductus arteriosus) (Chronic) At young age Diabetes mellitus type 1 (Chronic) Hyperlipidemia (Chronic) Obesity (BMI 30.0-34.9) (Chronic) Gastroparesis (Chronic) - Past Surgical History Surgical History: appendectomy, hysterectomy - and BSO, - - c-sections, L breast I+D for abscess, fistula placement LUE, L ankle surgery, appendectomy, PDA repair. Excision pilonidal cyst ulcer about 4 years ago. - Social History Smoking Status: Current some day smoker Alcohol: None Drugs: None - Family History Maternal History Items: Cancer, COPD, Diabetes, Hypertension, Renal Disease, Stroke Paternal History Items: Diabetes Sibling History Items: Cancer, Diabetes Review of Systems Constitutional: Denies: Chills, Fever, Weight Change HEENT: Denies: Head Aches, Sinus Congestion, Sinus Drainage Cardiovascular: Denies: Chest Pain, Palpitations Respiratory: Denies: Cough, Shortness of breath at rest, Sputum production Gastrointestinal: Denies: Abdominal Pain, Nausea, Vomiting Genitourinary: Denies: Dysuria Musculoskeletal: Denies: Joint Pain, Joint Tenderness Skin: Denies: Rash, Wounds Neurological: Denies: Numbness, Tingling, Focal weakness Psychiatric: Denies: Anxiety, Depression, Homicidal Ideations, Suicidal Ideations Hematologic/ Lymphatic: Denies: Easy Bruising, Easy Bleeding - Physical Exam General: Alert, Oriented x3, Cooperative HEENT: Atraumatic, PERRLA, EOMI, Normocephalic Neck: Supple, No JVD, Negative Carotid Bruits Lungs: Clear to auscultation, Normal air movement Cardiovascular: Regular rate, No murmurs Abdomen: Bowel Sounds Present, Soft, Non Tender Extremities: No edema, Capillary Refill Less than 3 Seconds Skin: No rashes, No breakdown Musculoskeletal: No Tenderness to Palpation of Joints or Extremities Neurological: Cranial nerves II-XII grossly intact Psych/Mental Status: Normal Affect, Appropriate Vital Signs Temp Pulse Resp BP Pulse Ox 97.5 F L 79 18 152/76 H 100 10/24/17 02:17 10/24/17 05:55 10/24/17 02:17 10/24/17 02:17 10/24/17 02:17 Oxygen Flow Rate (L/min) 2 Oxygen Delivery Method Room Air Weight: 84.4 kg Body Mass Index (BMI) 29.9 Intake and Output for Last 24 Hours 10/22/17 10/23/17 10/24/17 23:59 23:59 23:59 Intake Total 1122 / 1122 402 / 402 Output Total 600 / 600 200 / 200 Balance 522 / 522 202 / 202 Laboratory Tests Past 24 Hrs 10/23/17 10/24/17 10/24/17 13:20 06:45 06:45 WBC 6.4 RBC 2.88 L Hgb 9.3 L Hct 28.2 L MCV 97.9 MCH 32.3 H MCHC 33.0 RDW 15.1 H RDW Differential 54.1 H Plt Count 150 MPV 8.1 Immature Gran % (Auto) 0.200 Neut % (Auto) 62.0 Lymph % (Auto) 28.3 [place] % (Auto) 3.6 Eos % (Auto) 5.6 H Baso % (Auto) 0.3 Absolute Neuts (auto) 4.0 Absolute Lymphs (auto) 1.82 Total Counted Not Reportable Sodium 141 Potassium 4.3 Chloride 112 H Carbon Dioxide 19.0 L Anion Gap 10 BUN 50 H Creatinine 6.02 H Estim Creat Clear Calc 11.28 Est GFR (MDRD) Af Amer 10 L Est GFR (MDRD) Non-Af 8 L BUN/Creatinine Ratio 8.3 L Glucose 88 Calcium 8.0 L Total Bilirubin 0.20 AST 10 L ALT 23 Alkaline Phosphatase 74 Total Protein 7.0 Albumin 2.2 L Globulin 4.8 H Albumin/Globulin Ratio 0.5 L Lipase 399 H Urine Color Yellow Urine Clarity Sl. Cloudy Urine pH 7.0 Ur Specific [place] 1.005 Urine Protein 100 H Urine Glucose (UA) 250 H Urine Ketones Negative Urine Occult Blood 25 H Urine Nitrite Negative Urine Bilirubin Negative Urine Urobilinogen Normal Ur Leukocyte Esterase 25 H Urine RBC 0 SEEN Urine WBC 0-5 SEEN Ur Squamous Epith Cells 25-50 SEEN Urine Bacteria 1+ Urine Mucus 0 SEEN POC Glucose 10/24/17 10/24/17 10/23/17 12:54 06:44 21:54 POC Glucose 113 H 89 257 H 10/23/17 10/23/17 15:52 13:28 POC Glucose 178 H 129 H Assessment/Plan ESRD. Dialysis today. seen on dialysis. see orders/ flowsheets. no complaints anemia. Hb is at goal Pancreatitis. on IV fluids. clinically better since admission.
[2017-10-24] MEDS: 0.9% NaCl Peripheral Flush Adult/Peds IV ×4 (14:44→21:26)
--- NOTE | 2017-10-24 15:19 | DIALYSIS ---
hemodialysis x 3.5 hrs completed. 2K bath. access via LFA AVF. UF 1400ml. pt stable post tx. see hd flowsheet on chart.
--- NOTE | 2017-10-24 15:33 | PCM.PROGNOTE ---
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 He does have a recent history of Clostridium difficile colitis. White blood cell count at admission was 7.6 with 74% neutrophils. Paste was mildly elevated at 962 and today is 399. a clean catch UA was unremarkable. Clustered him to facility was positive. Enteric pathogen panel was negative. She was admitted to the hospital and started on PO Vancomycin and a clear liquid diet. Afebrile since admission. Vital signs are stable. White blood cell count today is 6.4 with an unremarkable differential. Hemoglobin is 9.3 which is more in keeping with her baseline.....10 at admission was actually high and likely due to hemoconcentration from vomiting and diarrhea. Lipase is 399 today. Denies any N/V today and tells me that she only had to empty the colostomy bag once today and it had some form. She is requesting crackers and toast. Denies abdominal pain - Physical Exam General: Alert, Oriented x3, Cooperative, No apparent distress, Well developed, Well nourished HEENT: Atraumatic, PERRLA, EOMI, Normocephalic Oral: Moist Mucosa Lungs: Clear to auscultation Cardiovascular: Regular rate, Regular Rhythm, Normal S1, Normal S2, No rub noted, No Gallop Abdomen: Bowel Sounds Present, Soft, Non Tender, Non-Distended Extremities: No clubbing, No cyanosis, No edema Skin: No rashes Neurological: Cranial nerves II-XII grossly intact, Neuro grossly intact Vital Signs Temp Pulse Resp BP Pulse Ox 97.2 F L 77 16 133/70 H 100 10/24/17 15:16 10/24/17 15:16 10/24/17 15:16 10/24/17 15:16 10/24/17 02:17 Oxygen Flow Rate (L/min) 2 Oxygen Delivery Method Room Air Weight: 186 lb 1.122 oz Body Mass Index (BMI) 29.9 Intake and Output for Last 24 Hours 10/22/17 10/23/17 10/24/17 23:59 23:59 23:59 Intake Total 1122 / 1122 402 / 402 Output Total 600 / 600 1600 / 1600 Balance 522 / 522 -1198 / -1198 Laboratory Tests Past 24 Hrs 10/24/17 10/24/17 06:45 06:45 WBC 6.4 RBC 2.88 L Hgb 9.3 L Hct 28.2 L MCV 97.9 MCH 32.3 H MCHC 33.0 RDW 15.1 H RDW Differential 54.1 H Plt Count 150 MPV 8.1 Immature Gran % (Auto) 0.200 Neut % (Auto) 62.0 Lymph % (Auto) 28.3 [place] % (Auto) 3.6 Eos % (Auto) 5.6 H Baso % (Auto) 0.3 Absolute Neuts (auto) 4.0 Absolute Lymphs (auto) 1.82 Total Counted Not Reportable Sodium 141 Potassium 4.3 Chloride 112 H Carbon Dioxide 19.0 L Anion Gap 10 BUN 50 H Creatinine 6.02 H Estim Creat Clear Calc 11.28 Est GFR (MDRD) Af Amer 10 L Est GFR (MDRD) Non-Af 8 L BUN/Creatinine Ratio 8.3 L Glucose 88 Calcium 8.0 L Total Bilirubin 0.20 AST 10 L ALT 23 Alkaline Phosphatase 74 Total Protein 7.0 Albumin 2.2 L Globulin 4.8 H Albumin/Globulin Ratio 0.5 L Lipase 399 H POC Glucose 10/24/17 10/24/17 10/23/17 12:54 06:44 21:54 POC Glucose 113 H 89 257 H 10/23/17 15:52 POC Glucose 178 H Medical Necessity - Tobacco Use Smoking Status: Current some day smoker Assessment/Plan Impressions 1. Clostridium difficile enterocolitis-continue vancomycin p.o. 2. Elevated lipase likely secondary to vomiting and not due to acute inflammation of the pancreas 3. End-stage renal disease on hemodialysis 4. 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 Type 1 diabetes mellitus 6. Hypertension 7. Anemia of chronic renal failure 8. Nonischemic cardiomyopathy 9. Gastroparesis Advance the diet to clears with crackers and dry toast....advance as tolerated continue the oral Vancocin....will need to go home with a RX for Vancocin continue PT/OT.....ambulating well in the room today Code Visit Inpatient E&M: 04345 Subs Hosp L2
[2017-10-24] MEDS: dilTIAZem CD 240 MG Capsule PO (17:14)
[2017-10-24] MEDS: Carvedilol 12.5 MG Tablet 25 MG PO (17:14)
[2017-10-24] MEDS: Aspirin 81 MG TAB.CHEW PO (17:14)
[2017-10-24] MEDS: Lisinopril 20 MG Tablet PO (17:15)
[2017-10-24] MEDS: FLUoxetine 20 MG Capsule 40 MG PO (17:15)
[2017-10-24] MEDS: Sodium Bicarbonate 650 MG Tablet PO (17:22)
[2017-10-24] MEDS: Calcium Acetate 667 MG Capsule PO (17:27)
[2017-10-24 17:46] LABS: Bedside Glucose 211 mg/dL (70-110)
[2017-10-24] MEDS: 0.9% Normal Saline 1,000 ML 75 ML IV (18:45)
[2017-10-24] MEDS: proMETHazine 25 MG/ML Syringe 6.25 MG IV (21:27)
[2017-10-24 21:36] LABS: Bedside Glucose 274 mg/dL (70-110)
[2017-10-25] VITALS (12 sets, daily range): BP systolic 128–154; BP diastolic 56–71; PULSE 48–75; RESP 18; TEMP 36.4–37.1; O2SAT 95–98
[2017-10-25] MEDS: Morphine 2 MG/ML Syringe IV ×5 (04:34→22:27)
[2017-10-25] MEDS: proMETHazine 25 MG/ML Syringe 6.25 MG IV ×3 (04:34→20:28)
[2017-10-25 04:46] LABS: Bedside Glucose 147 mg/dL (70-110)
[2017-10-25] MEDS: hydrALAZINE 25 MG Tablet PO ×3 (05:43→22:22)
[2017-10-25 06:50] LABS: Bedside Glucose 163 mg/dL (70-110)
[2017-10-25] MEDS: 0.9% Normal Saline 1,000 ML 75 ML IV ×2 (07:53→22:27)
[2017-10-25] MEDS: Ondansetron 4 MG/2 ML Vial IV ×2 (07:57→22:27)
[2017-10-25] MEDS: 0.9% NaCl Peripheral Flush Adult/Peds IV ×4 (07:57→18:12)
[2017-10-25] MEDS: dilTIAZem CD 240 MG Capsule PO (09:09)
[2017-10-25] MEDS: Carvedilol 12.5 MG Tablet 25 MG PO ×2 (09:09→22:25)
[2017-10-25] MEDS: Aspirin 81 MG TAB.CHEW PO (09:09)
[2017-10-25] MEDS: Lisinopril 20 MG Tablet PO (09:09)
[2017-10-25] MEDS: Calcium Acetate 667 MG Capsule PO ×3 (09:09→16:59)
[2017-10-25] MEDS: FLUoxetine 20 MG Capsule 40 MG PO (09:16)
--- NOTE | 2017-10-25 10:33 | CASEMGMT ---
MALLORY SCHUMACHER met with patient to confirm transition plan is still for home with resumption of home health services and with wound vac in place. Patient does have wound vac in place and states her plan is to return home with resumption of home health services. Patient did test positive for CDiff and will discharge on PO Vancocin. The patient has [facility] and [facility] coverage and uses [facility] for prescriptions. Transition Planning: MALLORY SCHUMACHER placed resumption of care order and will fax discharge instructions including wound care instructions to [facility] at discharge. MED Calle, RN-BC, CCM
[2017-10-25 11:36] LABS: Bedside Glucose 168 mg/dL (70-110)
--- NOTE | 2017-10-25 12:27 | NURSING ---
DR GARIBAY MADE AWARE OF PT CONTINUED C/O ABD PAIN & NAUSEA. ALSO NO OUTPUT FROM COLOSTOMY. NEW ORDERS RECEIVED.
--- NOTE | 2017-10-25 14:15 | RAD_ITS ---
STUDY: X-RAY - ACUTE ABDOMINAL SERIES REASON FOR EXAM: Female, 41 years old. Pain TECHNIQUE: Single view of the chest. Supine, upright view(s) of the abdomen were obtained. COMPARISON: 08/05/2017 FINDINGS: The lungs are clear. There are no pleural effusions. There is no pneumothorax. The heart is normal in size. There is no bowel obstruction. There is air and stool to the level of the rectum. There are stable scoliosis noted in the spine. RAD/Acute Abdomen Inc Chest IMPRESSION: Clear lungs. No bowel obstruction. Electronically Signed: Chucky Zelaya, at 18:21 EDT Tel , Service support ,
[2017-10-25 17:00] LABS: Bedside Glucose 193 mg/dL (70-110)
--- NOTE | 2017-10-25 20:09 | PCM.PROGNOTE ---
Subjective: Afebrile with stable vital signs. Patient complains of some nausea and had one episode of emesis after her diet was increased to full liquids. She has had no output from her colostomy other than gas in the past 24 hours. She is quite concerned about this and is afraid to go home. Acute abdominal series reveals no evidence of bowel obstruction or ileus. Blood sugars are adequately controlled. She denies cough, shortness of breath, chest pain, orthopnea. - Physical Exam General: Alert, Oriented x3, Cooperative, No apparent distress, Well developed, Well nourished Oral: Moist Mucosa Neck: Supple, No JVD, Trachea Midline Lungs: Clear to auscultation Cardiovascular: Regular rate, Regular Rhythm, Normal S1, Normal S2, No Gallop Abdomen: Bowel Sounds Present, Soft, Non-Distended, Tender - Mild diffuse tenderness with deep palpation but no guarding Extremities: No edema Skin: No rashes Psych/Mental Status: Normal Affect, Appropriate Vital Signs Temp Pulse Resp BP Pulse Ox 98.3 F 67 18 128/56 H 95 10/25/17 13:32 10/25/17 17:37 10/25/17 13:32 10/25/17 14:51 10/25/17 13:32 Oxygen Flow Rate (L/min) 2 Oxygen Delivery Method Room Air Weight: 186 lb 1.122 oz Body Mass Index (BMI) 29.9 Intake and Output for Last 24 Hours 10/23/17 10/24/17 10/25/17 23:59 23:59 23:59 Intake Total 1122 / 1122 1632 / 1632 2481 / 2481 Output Total 600 / 600 2300 / 2300 300 / 300 Balance 522 / 522 -668 / -668 2181 / 2181 POC Glucose 10/25/17 10/25/17 10/25/17 16:51 11:22 06:44 POC Glucose 193 H 168 H 163 H 10/25/17 10/24/17 04:34 21:23 POC Glucose 147 H 274 H Medical Necessity - Tobacco Use Smoking Status: Current some day smoker Assessment/Plan Impressions 1. Clostridium difficile enterocolitis-continue vancomycin p.o. 2. Elevated lipase likely secondary to vomiting and not due to acute inflammation of the pancreas 3. End-stage renal disease on hemodialysis 4. 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 Type 1 diabetes mellitus 6. Hypertension 7. Anemia of chronic renal failure 8. Nonischemic cardiomyopathy 9. Gastroparesis revert to clear liquid diet recheck the lab in the AM reassured the patient that the lack of OP from the colostomy is probably due to nothing much left in the colon following severe diarrhea. Reassess in the AM continue the Vancocin Code Visit Inpatient E&M: 04564 Subs Hosp L2
[2017-10-25 22:46] LABS: Bedside Glucose 144 mg/dL (70-110)
[2017-10-26] VITALS (12 sets, daily range): BP systolic 133–161; BP diastolic 54–76; PULSE 71–83; RESP 16–18; TEMP 36.3–37.6; O2SAT 93–99
[2017-10-26] MEDS: Morphine 2 MG/ML Syringe IV ×3 (02:22→13:28)
[2017-10-26] MEDS: 0.9% NaCl Peripheral Flush Adult/Peds IV ×3 (02:22→13:29)
[2017-10-26 06:02] LABS: Absolute Lymphocyte Count 0.87 X10^3/ul (0.83-4.51); Absolute Neutrophil Count 2.8 X10^3/uL (2.0-7.7); Basophil# 0.02 X10^3/uL; Basophil% 0.5 % (0-1); Hematocrit 25.9 % (37-47); Hemoglobin 8.5 g/dl (12.0-15.0); Lymphocyte # 0.87 X10^3/ul (4.0); Lymphocyte % 20.4 % (19-41); Mean Corp Hgb Conc 32.8 g/gl (32-36); Mean Corpuscular Hgb 32.7 pg (27.0-32.0); Mean Corpuscular Volume 99.6 fL (81-99); Mean Platelet Vol. 7.9 fl (6.2-12.0); Monocyte# 0.27 X10^3/uL; Monocyte% 6.3 % (0-10); Neutrophil # 2.79 X10^3/uL (2.7-7.7); Neutrophil % 65.6 % (47-70); Platelet Count 142 K/mm3 (150-450); RBC Distribution Width CV 14.4 % (11.6-14.6); RBC Distribution Width SD 50.1 fl (35.1-43.9); White Blood Count 4.3 K/mm3 (4.4-11.0)
[2017-10-26 06:05] LABS: POSITIVE COUNT NO; POSITIVE DIFFERENTIAL NO; POSITIVE MORPHOLOGY NO
[2017-10-26] MEDS: hydrALAZINE 25 MG Tablet PO ×2 (06:13→12:55)
[2017-10-26 06:21] LABS: Bedside Glucose 142 mg/dL (70-110)
[2017-10-26 06:23] LABS: Anion Gap 8 (5-15); BUN 31 mg/dL (7-18); BUN/Creat Ratio 6.5 RATIO (10-20); Calcium,Total 8.3 mg/dL (8.5-10.1); Chloride 106 mmol/L (98-107); Creatinine, Serum 4.79 mg/dL (0.55-1.02); EST Glomerular Filtration Rate 11 mL/min (>60); Est Glom Filt Rate - Afr Amer 13 mL/min (>60); Estimated Creatinine Clearance 14.18 ml/min; Glucose 139 mg/dL (74-106); Potassium 3.5 mmol/L (3.5-5.1); Sodium Level 141 mmol/L (136-145)
[2017-10-26] MEDS: Carvedilol 12.5 MG Tablet 25 MG PO (07:51)
[2017-10-26] MEDS: dilTIAZem CD 240 MG Capsule PO (07:51)
[2017-10-26] MEDS: FLUoxetine 20 MG Capsule 40 MG PO (07:51)
[2017-10-26] MEDS: Lisinopril 20 MG Tablet PO (07:51)
[2017-10-26] MEDS: Aspirin 81 MG TAB.CHEW PO (07:51)
[2017-10-26] MEDS: Calcium Acetate 667 MG Capsule PO ×2 (07:51→11:41)
[2017-10-26] MEDS: Sodium Bicarbonate 650 MG Tablet PO (07:51)
--- NOTE | 2017-10-26 09:11 | CASEMGMT ---
Call to [facility] to verify services. Pt had Nursing only. Did have PT evaluation, but PT services were not needed. Resume Home Health order placed. [facility] PH: [phone] FX: [phone]
--- NOTE | 2017-10-26 11:29 | PCM.PN.BLA ---
Progress Note patient was seen on dialysis today no new complaints still on CLD abdominal pain is better Access is AVF UF 3-4 L as tolerated see orders/ flowsheets
[2017-10-26 11:51] LABS: Bedside Glucose 247 mg/dL (70-110)
[2017-10-26] MEDS: proMETHazine 25 MG/ML Syringe 6.25 MG IV (13:09)
--- NOTE | 2017-10-26 15:02 | PCM.DC ---
You will use the following diet at home:: Other - advance diet as tolerated Your food should be the consistency of: Regular Your liquids should be the consistency of: Regular/Thin Call your doctor if you observe: Fever of 101 or Higher, - - recurrent severe diarrhea, intractable abdominal pain. Instructions: Clostridium difficile Infection Additional Instructions: clostridium difficile can be transmitted from 1 person to another. It is a spore and can be passed from contact with soiled clothing or if the spores are on your hands and you have contact with another person. It is not killed with hand financial supervisor but it is killed with hot soapy water. Be sure to tell ANYONE who changes the dressing that you have C. Diff so that they take the proper precautions. Make sure to take ALL the ALL of the Vancocin capsules prescribed for you OR the infectio can come back. I recommend you take a probiotic, available at any drug store over the counter, to help replace the normal bacteria that live in your colon. Allergies/Adverse Reactions: Allergies latex Allergy (Verified 10/23/17 12:15) Rash levofloxacin [From Levaquin] Adverse Reaction (Verified 10/23/17 12:15) PT CAN'T REMEMBER PT CAN'T REMEMBER metoclopramide HCl [From Reglan] Adverse Reaction (Verified 10/23/17 12:15) Nausea NSAIDS (Non-Steroidal Anti-Inflamma Adverse Reaction (Verified 10/23/17 12:15) kidney function oxycodone HCl [From Percocet] Adverse Reaction (Verified 10/23/17 12:15) HALLUCINATIONS Medications to take at Discharge Diltiazem HCl [Tiazac] 240 mg PO DAILY 07/10/15 Aspirin [Aspirin, Baby] 81 mg PO DAILY@0800 01/26/16 Calcium Acetate [Phoslo Gel Cap] 667 mg PO TIDCM 01/26/16 Ergocalciferol [Vitamin D] 50,000 unit PO FR 01/26/16 Insulin Aspart [Novolog Flexpen] 8 units SC TIDCM 01/26/16 Insulin Glargine,Hum.rec.anlog [Lantus] 5 unit SQ QHS 01/09/17 proMETHazine tablet [Phenergan tablet] 25 mg PO Q6H PRN PRN #10 tablet 03/06/17 Lisinopril 20 mg PO DAILY 03/29/17 Omeprazole Magnesium [Prilosec Otc] 20 mg PO DAILY 03/29/17 Sodium Bicarbonate 650 mg PO TUTHSA 03/29/17 Acetaminophen [Tylenol Tablet] 650 mg PO Q6H PRN PRN tablet 03/31/17 Carvedilol [Coreg (Beta Chang)] 25 mg PO BID 06/17/17 Ondansetron [Zofran Odt] 4 mg PO Q8H PRN PRN #10 tablet 08/06/17 Fluoxetine HCl 40 mg PO DAILY 09/02/17 hydrALAZINE [Apresoline] 25 mg PO TID #1 tablet 09/05/17 Vancomycin [Vancocin] 125 mg PO Q6H #48 cap 10/26/17 The following prescriptions were given: Vancomycin [Vancocin] 125 mg PO Q6H #48 cap Primary Care Physician: Christopher Foy MD [Primary Care Provider] - Please follow up with your Primary Care Physician in: 7-10 days Proposed Discharge Date: 10/26/17
--- NOTE | 2017-10-26 15:12 | PCM.DC.SUM ---
Discharge Date and Diagnosis Date of Admission: 10/23/17 Date of Discharge: 10/26/17 - Primary Discharge Diagnosis Active and Suspected Problems Clostridium difficile enterocolitis (Acute) - Secondary Discharge Diagnosis Chronic Problems Decubitus ulcer, stage III (Chronic) - anal cleft CAD (coronary artery disease) (Chronic) Anemia, chronic disease (Chronic) Pilonidal cyst with abscess (Chronic) GABRIEL (obstructive sleep apnea) (Chronic) ESRD on dialysis (Chronic) Depression (Chronic) Anxiety (Chronic) HTN (hypertension) (Chronic) Nonischemic cardiomyopathy (Chronic) With ejection fraction 45 - 50%; with angiographically normal coronary arteries 05/2013; follows up with Dr. Magdaleno S/P repair of PDA (patent ductus arteriosus) (Chronic) At young age Diabetes mellitus type 1 (Chronic) Hyperlipidemia (Chronic) Obesity (BMI 30.0-34.9) (Chronic) Gastroparesis (Chronic) Hospital Course and Treatment Imaging Results: Clinical Impression(s) from Imaging Studies Acute Abdomen Series 10/25/17 14:15 IMPRESSION: Clear lungs. No bowel obstruction. Electronically Signed: Chucky Zelaya, at 18:21 EDT Tel , Service support , Microbiology 10/23/17 10:30 Stool Enteric Bacteriology - Final 10/23/17 10:30 Stool C. difficile DNA Amplification - Final Toxigenic C. difficile DNA Laboratory Results - last 24 hr 10/25/17 10/25/17 10/26/17 16:51 22:20 05:40 WBC 4.3 L RBC 2.60 L Hgb 8.5 L Hct 25.9 L MCV 99.6 H MCH 32.7 H MCHC 32.8 RDW 14.4 RDW Differential 50.1 H Plt Count 142 L MPV 7.9 Immature Gran % (Auto) 0.200 Neut % (Auto) 65.6 Lymph % (Auto) 20.4 [place] % (Auto) 6.3 Eos % (Auto) 7.0 H Baso % (Auto) 0.5 Absolute Neuts (auto) 2.8 Absolute Lymphs (auto) 0.87 Total Counted Not Reportable Sodium Potassium Chloride Carbon Dioxide Anion Gap BUN Creatinine Estim Creat Clear Calc Est GFR (MDRD) Af Amer Est GFR (MDRD) Non-Af BUN/Creatinine Ratio Glucose Calcium Phosphorus POC Glucose 193 H 144 H 10/26/17 10/26/17 10/26/17 05:40 06:11 11:37 WBC RBC Hgb Hct MCV MCH MCHC RDW RDW Differential Plt Count MPV Immature Gran % (Auto) Neut % (Auto) Lymph % (Auto) [place] % (Auto) Eos % (Auto) Baso % (Auto) Absolute Neuts (auto) Absolute Lymphs (auto) Total Counted Sodium 141 Potassium 3.5 Chloride 106 Carbon Dioxide 27.0 Anion Gap 8 BUN 31 H Creatinine 4.79 H Estim Creat Clear Calc 14.18 Est GFR (MDRD) Af Amer 13 L Est GFR (MDRD) Non-Af 11 L BUN/Creatinine Ratio 6.5 L Glucose 139 H Calcium 8.3 L Phosphorus 5.0 H POC Glucose 142 H 247 H Consultations 10/23/17 12:03 Consult: Onc/Wound/business development analyst Routine Comment: Operations: None, - Procedures: Dialysis Summary of Care Provided: She is a 41-year-old female with a past medical history of coronary artery disease, anemia of chronic renal disease, GABRIEL, end-stage renal disease on hemodialysis, depression/anxiety, hypertension, nonischemic cardiomyopathy with a 45-50% ejection fraction and normal coronaries in May 2013, history of patent ductus arteriosus repair, diabetes mellitus type 1, hyperlipidemia, a 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 She had a recent history of Clostridium difficile colitis and was being treated with Flagyl. White blood cell count at admission was 7.6 with 74% neutrophils. Lipase was mildly elevated at 962. A clean catch UA was unremarkable. C. Diff in the stool was positive. Enteric pathogen panel was negative. She was admitted to the hospital and started on PO Vancomycin 125 mg Q6H and a clear liquid diet. the diet was advance to full liquids as tolerated. the diarrhea resolved and then she became concerned that she had no stool in the colostomy bag although she had flatus in the bag. An acute abdominal series was obtained and did not shows a bowel obstruction. On the day of DC she had HD and following HD tolerated a full liquid diet. She was given a RX for Vancocin capsules #48 and instructed to take 1 every 6 hours to complete 14 days of treatment. She was also given a RX for Dressing supplies. I recommended she start a probiotic to replace normal bowel fadi. She will follow up with Dr. Foy in 7-10 days. I also recommended that she inform everyone changing the dressings that she has C. Diff so proper precautions to prevent transmission of the spores can be taken. This note was generated with [employer] dictation software. It may contain incorrect words, spelling, and punctuation that were not noted in checking the note before signing. Call your doctor if you observe: Fever of 101 or Higher, - - recurrent severe diarrhea, intractable abdominal pain. Home Medications: Medications to take at Discharge Diltiazem HCl [Tiazac] 240 mg PO DAILY 07/10/15 Aspirin [Aspirin, Baby] 81 mg PO DAILY@0800 01/26/16 Calcium Acetate [Phoslo Gel Cap] 667 mg PO TIDCM 01/26/16 Ergocalciferol [Vitamin D] 50,000 unit PO FR 01/26/16 Insulin Aspart [Novolog Flexpen] 8 units SC TIDCM 01/26/16 Insulin Glargine,Hum.rec.anlog [Lantus] 5 unit SQ QHS 01/09/17 proMETHazine tablet [Phenergan tablet] 25 mg PO Q6H PRN PRN #10 tablet 03/06/17 Lisinopril 20 mg PO DAILY 03/29/17 Omeprazole Magnesium [Prilosec Otc] 20 mg PO DAILY 03/29/17 Sodium Bicarbonate 650 mg PO TUTHSA 03/29/17 Acetaminophen [Tylenol Tablet] 650 mg PO Q6H PRN PRN tablet 03/31/17 Carvedilol [Coreg (Beta Chang)] 25 mg PO BID 06/17/17 Ondansetron [Zofran Odt] 4 mg PO Q8H PRN PRN #10 tablet 08/06/17 Fluoxetine HCl 40 mg PO DAILY 09/02/17 hydrALAZINE [Apresoline] 25 mg PO TID #1 tablet 09/05/17 Vancomycin [Vancocin] 125 mg PO Q6H #48 cap 10/26/17 Following Prescrptions Were Given to Patient: Vancomycin [Vancocin] 125 mg PO Q6H #48 cap Primary Care Physician: Christopher Foy MD [Primary Care Provider] - Please follow up with your Primary Care Physician in: 7-10 days Patient Instructions: Clostridium difficile Infection Disposition: Home Minutes spent on discharge:: 35 Patient Condition:: Stable Medical Necessity - Tobacco Use Smoking Status: Current some day smoker Meaningful Use Info Meaningful Use Diagnoses (Choose all that apply): None applicable Code Visit Inpatient E&M: 56527 Disch Hosp
--- NOTE | 2017-10-26 15:24 | CASEMGMT ---
Call, message left with Savannah Gurnard [employer] Replaced by [facility] that pt will be dc'd today. DC instructions, script for supplies given to pt. Requested start of care to be 10/27/17. Colin CURTISN RN AC
== END 2017-10-26 16:10 | disposition home health service (06) | DRG 371 ==
LOC: ED 10:51 → MS2 11:23
PROVIDERS: Admitting Provider Hospitalist; Emergency Provider Emergency Medicine; Family Provider Family Medicine; PCP Family Medicine; Visit Provider Internal Medicine
DX: A04.72 Enterocolitis due to Clostridium difficile, not specified as recurrent (principal); L89.153 Pressure ulcer of sacral region, stage 3; I13.2 Hypertensive heart and chronic kidney disease with heart failure and with stage 5 chronic kidney disease, or end stage renal disease; E10.22 Type 1 diabetes mellitus with diabetic chronic kidney disease; I42.8 Other cardiomyopathies; K31.84 Gastroparesis; E10.43 Type 1 diabetes mellitus with diabetic autonomic (poly)neuropathy; N18.6 End stage renal disease; I50.22 Chronic systolic (congestive) heart failure; I25.10 Atherosclerotic heart disease of native coronary artery without angina pectoris; E66.9 Obesity, unspecified; D63.8 Anemia in other chronic diseases classified elsewhere; F32.9 Major depressive disorder, single episode, unspecified; F41.9 Anxiety disorder, unspecified; E78.5 Hyperlipidemia, unspecified; G47.33 Obstructive sleep apnea (adult) (pediatric); F17.210 Nicotine dependence, cigarettes, uncomplicated; Z79.82 Long term (current) use of aspirin; Z93.3 Colostomy status; Z68.29 Body mass index [BMI] 29.0-29.9, adult; Z99.2 Dependence on renal dialysis; Z79.4 Long term (current) use of insulin; Z79.899 Other long term (current) drug therapy
CPT/HCPCS: 36415; 74022; 80048; 80053; 81001; 82962; 83690; 84100; 84484; 85025; 87493; 87506; 90937; 93005; 97116; 97162; 97165; 97530; 97802; 99284; 99406; J7030; A4216; G0257; J2405

== ENCOUNTER 2017-10-31 14:36 | Emergency (ER) | payer MEDICARE, MEDICAID, SELFPAY ==
[2017-10-31 14:38] VITALS: BP 140/59; PULSE 71; RESP 16; TEMP 36.4; O2SAT 100; BMI 31.4
--- NOTE | 2017-10-31 15:28 | EKG12_ITS ---
Test Reason : SOB Blood Pressure : / mmHG Vent. Rate : 073 BPM Atrial Rate : 073 BPM P-R Int : 138 ms QRS Dur : 090 ms QT Int : 470 ms P-R-T Axes : 043 068 117 degrees QTc Int : 517 ms Poor data quality, interpretation may be adversely affected Sinus rhythm with Premature atrial complexes Nonspecific T wave abnormality Abnormal ECG Confirmed by DIVINA BEASLEY, SUSI ([id number]), news editor SHANIA SOLITARIO ([id number]) on 11/03/2017 11:27:42 AM Referred By: RAJENDRA Confirmed By:SUSI MURCIA MD
--- NOTE | 2017-10-31 15:58 | ED.VISSUMM ---
- ER Visit Summary Date of Service: 10/31/17 Chief Complaint: Shortness of breath History of Present Illness: The patient is a 41 F who was at dialysis today. Patient states she developed back pain between her shoulder blades and felt short of breath. She had pain with deep breath and felt like she was not getting enough air in. She does report a mild cough with yellow sputum production. She reports having chills at home the last few days but no fever. Patient was recently hospitalized for an enlarged pancreas and C. difficile. Physical Examination: Vital signs are unremarkable. Pulse ox is 100% on room air. Patient's lying on her side in the bed no acute distress. She speaking full sentences. Head neck examination is grossly unremarkable. Heart is regular rate and rhythm. Lung sounds are clear with good air movement throughout. Abdomen is soft and nontender. Back examination was reducible tenderness in the mid thoracic paraspinal muscles. No overlying skin changes noted. Lower external examination reveals no edema. She has strong distal pulses. Test Results: Two-view chest x-ray reveals no focal infiltrate. EKG is sinus at 73. There is some mild lateral T-wave flattening noted. No ST change. CBC reveals a normal white count with hemoglobin of 8.2 and platelet count of 127,000. Chemistry studies reveal potassium 3.4 and glucose of 263. BUN is 36 and creatinine is 5.02. Troponin is less than 0.02. Emergency Department Course and Treatment: Patient was given a small dose of morphine, Zofran, and 0.5 mg p.o. Ativan. On repeat evaluation she does feel improved. She is easily moving around in the room. I believe her pain is musculoskeletal in nature. She is requesting to be discharged to home. Treatment Plan: [] Disposition: Discharge Impression: Musculoskeletal back pain This note was generated with [employer] dictation software. It may contain incorrect words, spelling, and punctuation that were not noted in review of the chart prior to signing ED Disposition - Plan for ED Patient: Disposition: Home or Assisted Living Chief Complaint: Shortness of Breath Instructions: ED Neck Back Pain General Referrals: Christopher Foy MD [Primary Care Provider] - 1 Week if not improving
--- NOTE | 2017-10-31 16:15 | RAD_ITS ---
STUDY: X-RAY CHEST REASON FOR EXAM: Female, 41 years old. Shortness of breath TECHNIQUE: Frontal and lateral views of the chest. COMPARISON: 10/25/2017. FINDINGS: The lungs are clear and expanded. There is no demonstrated pleural abnormality. Normal size heart. Normal mediastinum and latrell. Normal visualized pulmonary arteries. Normal visualized aortic arch and descending thoracic aorta. Normal visualized thoracic spine. Normal visualized ribs, clavicles, and shoulders. There is no demonstrated abnormality of the visualized soft tissue structures of the upper abdomen. RAD/Chest PA and Lateral IMPRESSION: Normal x-ray examination of the chest. Electronically Signed: James Kahn MD at 16:42 EDT , Service support ,
[2017-10-31 16:25] LABS: Absolute Lymphocyte Count 1.41 X10^3/ul (0.83-4.51); Absolute Neutrophil Count 3.1 X10^3/uL (2.0-7.7); Basophil# 0.01 X10^3/uL; Basophil% 0.2 % (0-1); Eosinophil# 0.27 X10^3/uL; Eosinophils% 5.3 % (0-5); Hematocrit 24.1 % (37-47); Hemoglobin 8.2 g/dl (12.0-15.0); Lymphocyte # 1.41 X10^3/ul (4.0); Lymphocyte % 27.8 % (19-41); Mean Corpuscular Hgb 33.2 pg (27.0-32.0); Mean Corpuscular Volume 97.6 fL (81-99); Mean Platelet Vol. 7.9 fl (6.2-12.0); Monocyte# 0.25 X10^3/uL; Monocyte% 4.9 % (0-10); Platelet Count 127 K/mm3 (150-450); RBC Distribution Width CV 14.1 % (11.6-14.6); RBC Distribution Width SD 47.8 fl (35.1-43.9); Red Blood Count 2.47 M/mm3 (4.2-5.4); White Blood Count 5.1 K/mm3 (4.4-11.0)
[2017-10-31 16:26] LABS: POSITIVE COUNT NO; POSITIVE DIFFERENTIAL NO; POSITIVE MORPHOLOGY NO
[2017-10-31 16:53] LABS: Anion Gap 11 (5-15); BUN 36 mg/dL (7-18); BUN/Creat Ratio 7.2 RATIO (10-20); Calcium,Total 7.6 mg/dL (8.5-10.1); Chloride 106 mmol/L (98-107); Creatinine, Serum 5.02 mg/dL (0.55-1.02); EST Glomerular Filtration Rate 10 mL/min (>60); Est Glom Filt Rate - Afr Amer 12 mL/min (>60); Estimated Creatinine Clearance 13.53 ml/min; Glucose 263 mg/dL (74-106); Potassium 3.4 mmol/L (3.5-5.1); Sodium Level 140 mmol/L (136-145)
[2017-10-31] MEDS: Ondansetron 4 MG/2 ML Vial IV (17:52)
[2017-10-31] MEDS: Morphine 2 MG/ML Syringe IV (17:54)
[2017-10-31 17:56] VITALS: BP 151/68; PULSE 77; RESP 18; O2SAT 98
[2017-10-31] MEDS: LORazepam 0.5 MG Tablet PO (17:57)
--- NOTE | 2017-10-31 18:29 | ED.DEP ---
ED Disposition - Plan for ED Patient: Disposition: Home or Assisted Living Chief Complaint: Shortness of Breath Instructions: ED Neck Back Pain General Referrals: Christopher Foy MD [Primary Care Provider] - 1 Week if not improving
[2017-10-31 18:35] VITALS: BP 160/72; PULSE 87; RESP 18; O2SAT 97
== END 2017-10-31 18:37 | disposition home or self-care (01) ==
PROVIDERS: Emergency Provider Emergency Medicine; Family Provider Family Medicine; PCP Family Medicine
DX: M54.9 Dorsalgia, unspecified (principal); R06.00 Dyspnea, unspecified; R05 Cough; R68.83 Chills (without fever); I25.10 Atherosclerotic heart disease of native coronary artery without angina pectoris; J44.9 Chronic obstructive pulmonary disease, unspecified; I13.2 Hypertensive heart and chronic kidney disease with heart failure and with stage 5 chronic kidney disease, or end stage renal disease; E11.22 Type 2 diabetes mellitus with diabetic chronic kidney disease; N18.6 End stage renal disease; I50.9 Heart failure, unspecified; Z99.2 Dependence on renal dialysis; Z86.39 Personal history of other endocrine, nutritional and metabolic disease; E11.43 Type 2 diabetes mellitus with diabetic autonomic (poly)neuropathy; K31.84 Gastroparesis; Z87.19 Personal history of other diseases of the digestive system; Z86.19 Personal history of other infectious and parasitic diseases; F32.9 Major depressive disorder, single episode, unspecified; F41.9 Anxiety disorder, unspecified; I42.8 Other cardiomyopathies; Z95.5 Presence of coronary angioplasty implant and graft; Z79.82 Long term (current) use of aspirin; Z79.4 Long term (current) use of insulin; Z79.899 Other long term (current) drug therapy; Z72.0 Tobacco use
CPT/HCPCS: 71046; 80048; 84484; 85025; 93005; 96374; 96375; 99285; A4216; J2405

== ENCOUNTER 2017-11-05 08:30 | Inpatient (IN) | payer MEDICARE, MEDICAID, SELFPAY ==
[2017-11-05] VITALS (16 sets, daily range): BP systolic 184–198; BP diastolic 73–100; PULSE 79–103; RESP 16–27; TEMP 36.2–36.7; O2SAT 94–98; BMI 31.9; BMI 31.1; BMI 32.0
--- NOTE | 2017-11-05 08:43 | EKG12_ITS ---
Test Reason : SOB Blood Pressure : / mmHG Vent. Rate : 090 BPM Atrial Rate : 090 BPM P-R Int : 124 ms QRS Dur : 090 ms QT Int : 388 ms P-R-T Axes : 040 048 087 degrees QTc Int : 474 ms Normal sinus rhythm Normal ECG Confirmed by CHEPE BEASLEY, KAITLYNN ([id number]), desk editor SHANIA SOLITARIO ([id number]) on 11/07/2017 2:48:40 PM Referred By: DINAH Confirmed By:KAITLYNN MO MD
--- NOTE | 2017-11-05 08:50 | RAD_ITS ---
STUDY: X-RAY CHEST REASON FOR EXAM: Female, 41 years old. Shortness of breath and cough. TECHNIQUE: Single AP portable view of the chest. COMPARISON: 31 October 2017 FINDINGS: Bilateral prominent interstitial markings and patchy airspace disease most notable within the right upper lateral lung and basilar segments. The lungs are clear and expanded. There is no demonstrated pleural abnormality. Normal size heart. Normal mediastinum and latrell. Normal visualized pulmonary arteries. Normal visualized aortic arch and descending thoracic aorta. Normal visualized thoracic spine. Normal visualized ribs, clavicles, and shoulders. There is no demonstrated abnormality of the visualized soft tissue structures of the upper abdomen. RAD/Chest 1 View (Portable) IMPRESSION: Compared to 31 October 2017 there is increased interstitial markings with right upper lobe lateral patchy airspace disease concerning for infectious infiltrate in the appropriate clinical setting. Underlying cardiogenic edema/alveolar disease is not excluded. Recommend repeat evaluation after appropriate treatment. Electronically Signed: Ariel Salas DO at 9:10 EDT , Service support ,
--- NOTE | 2017-11-05 08:55 | ED.DCSUM_ITS ---
- ER Visit Summary Date of Service: 11/05/17 Chief Complaint: Shortness of breath History of Present Illness: The patient is a 41 F presenting with shortness of breath. She states this started yesterday. It is worsened with exertion. She has had temperatures up to 100.2 at home. She has had nausea, vomiting ?2. She states she has had loose stool in her colostomy bag with blood. She is scheduled for colonoscopy tomorrow per Dr. Zhang. She is currently being treated for C. difficile with vancomycin p.o. She missed dialysis yesterday. She complains of generalized weakness. Her primary care physician called her and advised her that her hemoglobin which was drawn on Monday was low. She was advised to come to the ED for further evaluation. Physical Examination: Blood pressure 186/92, temperature 98, heart rate 103, respiratory 24, pulse ox 98% on room air. Alert no acute distress. HEENT exam is unremarkable. Neck is supple. Lungs are clear and equal bilaterally. Heart is regular and tachycardic Abdomen is soft nontender nondistended. Colostomy bag Extremities are unremarkable. Skin is warm and dry. No focal neurologic deficit. Remainder of exam is unremarkable. Emergency Department Course and Treatment: EKG is sinus rhythm rate of 90 with no acute ischemic changes. Chest x-ray shows compared to 31 October 2017 there is increased interstitial markings with right upper lobe lateral patchy airspace disease concerning for infectious infiltrate. Underlying cardiogenic edema/alveolar disease is not excluded. CBC shows a hemoglobin of 8.3, platelets 121. Urinalysis unremarkable. Basic metabolic panel shows glucose 146, BUN 42, creatinine 5.43. Troponin is negative. Lactic acid is normal. She was given Vanc and Zosyn IV for HCAP. Will discuss with the hospitalist for admission. Disposition: Admission Impression: HCAP, GI bleed, anemia, end-stage renal disease This note was generated with [employer] dictation software. It may contain incorrect words, spelling, and punctuation that were not noted in review of the chart prior to signing ED Disposition - Plan for ED Patient: Chief Complaint: Shortness of Breath Referrals: Christopher Foy MD [Primary Care Provider] -
[2017-11-05 09:41] LABS: Bacteria 0 SEEN /hpf (None Seen); Mucous, Urine 0 SEEN /hpf (<or=2+); Red Blood Cells-Urine 0 SEEN /hpf (0-5); White Blood Cells 0 SEEN /hpf (0-5)
[2017-11-05 09:42] LABS: Color, Urine Yellow (Yellow); Glucose, Dipstick 100 mg/dl (Normal); Ketone-Dipstick Negative (Negative); Leukocyte Esterase-Dipstick Negative /ul (Negative); Nitrite-Dipstick Negative (Negative); Occult Blood-Urine 10 /ul (Negative); Protein-Dipstick 100 mg/dl (Negative); Specific Gravity, Urine 1.015 (1.002-1.030); Urine Bilirubin Dipstick Negative (Negative); Urine Clarity Sl. Cloudy (Clear); Urine Urobilinogen Normal (Normal)
[2017-11-05 09:50] LABS: Squamous Epithelial Cells - UA 0-5 SEEN /hpf (5-10)
[2017-11-05 09:50] LABS: Absolute Lymphocyte Count 1.23 X10^3/ul (0.83-4.51); Absolute Neutrophil Count 4.5 X10^3/uL (2.0-7.7); Basophil# 0.02 X10^3/uL; Basophil% 0.3 % (0-1); Eosinophils% 6.1 % (0-5); Hematocrit 25.1 % (37-47); Hemoglobin 8.3 g/dl (12.0-15.0); Lymphocyte # 1.23 X10^3/ul (4.0); Lymphocyte % 18.8 % (19-41); Mean Corp Hgb Conc 33.1 g/gl (32-36); Mean Corpuscular Hgb 32.7 pg (27.0-32.0); Mean Corpuscular Volume 98.8 fL (81-99); Mean Platelet Vol. 8.1 fl (6.2-12.0); Monocyte# 0.33 X10^3/uL; Monocyte% 5.1 % (0-10); Neutrophil % 68.9 % (47-70); POSITIVE COUNT NO; POSITIVE DIFFERENTIAL NO; POSITIVE MORPHOLOGY NO; Platelet Count 121 K/mm3 (150-450); RBC Distribution Width SD 53.8 fl (35.1-43.9); Red Blood Count 2.54 M/mm3 (4.2-5.4); White Blood Count 6.5 K/mm3 (4.4-11.0)
--- NOTE | 2017-11-05 10:19 | ED.RN ---
PT DENIES NAUSEA AT THIS TIME. PT ALSO MISSED HER DIALYSIS YESTERDAY AND IS NOT SCHEDULED FOR HER NEXT APPT TIL MONDAY. NOT GIVING FLUIDS AT THIS TIME.
[2017-11-05 10:28] LABS: ALB/GLOB Ratio 0.5 RATIO (0.9-2.4); AST(SGOT) 18 U/L (15-37); Alanine Aminotransfer ALT/SGPT 31 U/L (13-56); Albumin, Serum 2.6 g/dL (3.2-5.0); Alkaline Phosphatase 95 U/L (45-117); Anion Gap 9 (5-15); BUN 42 mg/dL (7-18); BUN/Creat Ratio 7.7 RATIO (10-20); Calcium,Total 8.1 mg/dL (8.5-10.1); Chloride 113 mmol/L (98-107); Creatinine, Serum 5.43 mg/dL (0.55-1.02); EST Glomerular Filtration Rate 9 mL/min (>60); Est Glom Filt Rate - Afr Amer 11 mL/min (>60); Estimated Creatinine Clearance 12.51 ml/min; Globulin 4.8 g/dL (2.2-4.2); Glucose 146 mg/dL (74-106); Lactic Acid 0.8 mmol/L (0.4-2.0); Potassium 5.1 mmol/L (3.5-5.1); Protein, Total 7.4 g/dL (6.4-8.2); Sodium Level 145 mmol/L (136-145)
[2017-11-05] MEDS: Piperacil/Tazobactam 3.375 GM/50 ML ML IV ×2 (11:10→22:02)
[2017-11-05] MEDS: Ondansetron 4 MG/2 ML Vial IV (11:10)
[2017-11-05] MEDS: 0.9% Normal Saline 1,000 ML 1000 ML IV (11:10)
[2017-11-05] MEDS: Acetaminophen 500 MG Tablet 1000 MG PO (11:27)
--- NOTE | 2017-11-05 12:57 | PHA.PHARE_ITS ---
Consult Pharmacy has been consulted to manage selected antiobiotic: Vancomycin Type of Consult: New start Suspected Infection: Pneumonia Prior Doses of Antibiotics Received/Current Regimen: Medications Discontinued Medications Vancomycin HCl 1,000 mg/ N/A 200 mls @ 200 mls/hr IV X1 THEN RX TO DOSE ONE Stop: 11/05/17 12:08 Last Admin: 11/05/17 11:40 Dose: 200 mls/hr Labs: Sodium 145 mmol/L (136-145) 11/05/17 09:28 Potassium 5.1 mmol/L (3.5-5.1) 11/05/17 09:28 Chloride 113 mmol/L (98-107) H 11/05/17 09:28 Carbon Dioxide 23.0 mmol/L (21.0-32.0) 11/05/17 09:28 Anion Gap 9 (5-15) 11/05/17 09:28 BUN 42 mg/dL (7-18) H 11/05/17 09:28 Creatinine 5.43 mg/dL (0.55-1.02) H 11/05/17 09:28 Est GFR (MDRD) Af Amer 11 mL/min (>60) L 11/05/17 09:28 Est GFR (MDRD) Non-Af 9 mL/min (>60) L 11/05/17 09:28 BUN/Creatinine Ratio 7.7 RATIO (10-20) L 11/05/17 09:28 Glucose 146 mg/dL (74-106) H 11/05/17 09:28 Weight used for dosin kg Estimated Creatinine Clearance: Dialysis Goal Trough: Other - Per [facility] nomogram Pharmacy Plan for Drug Dosing: Pharmacy Service will continue to monitor and adjust dosing as required. Follow-Up Labs: Trough Vancomycin - Random 11/06/17 @ 0600
[2017-11-05] MEDS: Ipratropium/Albuterol Sulfate 3 ML AMPUL.NEB INHALATION ×3 (15:12→23:37)
[2017-11-05] MEDS: oxyCODONE 5 MG Tablet PO ×2 (15:16→21:54)
[2017-11-05] MEDS: proMETHazine 25 MG/ML Syringe 12.5 MG IV ×2 (15:17→21:57)
[2017-11-05] MEDS: Heparin Injection 5,000 UNITS/ML Syringe 5000 UNITS SC ×2 (15:48→21:48)
--- NOTE | 2017-11-05 20:26 | HP.PCM_ITS ---
Problem List (1) Pneumonia Status: Acute Qualifiers: Pneumonia type: due to unspecified organism Laterality: bilateral (2) Decubitus ulcer, stage III Status: Chronic Qualifiers: Pressure ulcer location: sacral region Qualified Code(s): L89.153 - Pressure ulcer of sacral region, stage 3 (3) Clostridium difficile enterocolitis Status: Acute (4) CAD (coronary artery disease) Status: Chronic Qualifiers: Coronary Disease-Associated Artery/Lesion type: [place] artery [place] vs. transplanted heart: [place] heart Associated angina: without angina Qualified Code(s): I25.10 - Atherosclerotic heart disease of [place] coronary artery without angina pectoris (5) Anemia, chronic disease Status: Chronic (6) ESRD on dialysis Status: Chronic (7) HTN (hypertension) Status: Chronic Qualifiers: Hypertension type: essential hypertension (8) Diabetes mellitus type 1 Status: Chronic Qualifiers: Diabetes mellitus complication status: with kidney complications Diabetes mellitus complication detail: with chronic kidney disease Chronic kidney disease stage: on chronic dialysis Qualified Code(s): E10.22 - Type 1 diabetes mellitus with diabetic chronic kidney disease; N18.6 - End stage renal disease; Z99.2 - Dependence on renal dialysis History of Present Illness Date of Admission: 11/05/17 Chief Complaint: Shortness of breath. Patient is a 41 years old female with multiple medical problems, presents to ED with complaining of shortness of breath, admitted on 11/05/17. She started to have some respiratory problems one day prior to admission, gradually worsening today. She had some fever and chills, up to temp 100.2 at home. She has developed dry cough, but she has some cough from smoking and underling COPD. She had seen blood mixed with stool coming from colostomy. She had very high output about one week ago, started with saida bleed observed in the colostomy bag. She had consulted her PCP, had blood work in the office. After she had consulted regarding generalized weakness, she was alerted that her Hgb was low, advised to come to ED. She continues to see some blood in stool, but had stopped about 4 days ago. Record was reviewed for Hgb, which has been ranging from 7.3 to 10. She was recently discharged form hospital on 10/26, an seen in ED on 10/31. Last Hgb on 10/31 was 8.2. CXR showed bilateral diffuse infiltrate , and prominent area probably due to infiltrate at right upper lobe. She was afebrile, and WBC was 6/5. She was discharged from hospital on 10/26/17 for c. difficile, still on vancomycin PO. She has h/o DM I, ESRD, COPD, s/p colostomy after she developed large ulcer close to rectum. Past Medical History Past Medical History (Chronic Problems): Chronic Problems Decubitus ulcer, stage III (Chronic) CAD (coronary artery disease) (Chronic) Anemia, chronic disease (Chronic) Pilonidal cyst with abscess (Chronic) GABRIEL (obstructive sleep apnea) (Chronic) ESRD on dialysis (Chronic) Depression (Chronic) Anxiety (Chronic) HTN (hypertension) (Chronic) Nonischemic cardiomyopathy (Chronic) With ejection fraction 45 - 50%; with angiographically normal coronary arteries 05/2013; follows up with Dr. Magdaleno S/P repair of PDA (patent ductus arteriosus) (Chronic) At young age Diabetes mellitus type 1 (Chronic) Hyperlipidemia (Chronic) Obesity (BMI 30.0-34.9) (Chronic) Gastroparesis (Chronic) Allergies latex Allergy (Verified 11/05/17 08:34) Rash levofloxacin [From Levaquin] Adverse Reaction (Verified 11/05/17 08:34) PT CAN'T REMEMBER PT CAN'T REMEMBER metoclopramide HCl [From Reglan] Adverse Reaction (Verified 11/05/17 08:34) Nausea NSAIDS (Non-Steroidal Anti-Inflamma Adverse Reaction (Verified 11/05/17 08:34) kidney function oxycodone HCl [From Percocet] Adverse Reaction (Verified 11/05/17 08:34) HALLUCINATIONS Home Medications: Ambulatory Orders Medication Instructions Recorded Diltiazem HCl [Tiazac] 240 mg PO DAILY 07/10/15 Aspirin [Aspirin, Baby] 81 mg PO DAILY@0800 01/26/16 Calcium Acetate [Phoslo Gel Cap] 667 mg PO TIDCM 01/26/16 Ergocalciferol [Vitamin D] 50,000 unit PO FR 01/26/16 Insulin Aspart [Novolog Flexpen] 8 units SC TIDCM 01/26/16 Insulin Glargine,Hum.rec.anlog 5 unit SQ QHS 01/09/17 [Lantus] proMETHazine tablet [Phenergan 25 mg PO Q6H PRN PRN #10 tablet 03/06/17 tablet] Lisinopril 20 mg PO DAILY 03/29/17 Omeprazole Magnesium [Prilosec Otc] 20 mg PO DAILY 03/29/17 Sodium Bicarbonate 650 mg PO TUTHSA 03/29/17 Acetaminophen [Tylenol Tablet] 650 mg PO Q6H PRN PRN tablet 03/31/17 Carvedilol [Coreg (Beta Chang)] 25 mg PO BID 06/17/17 Fluoxetine HCl 40 mg PO DAILY 09/02/17 Vancomycin [Vancocin] 125 mg PO Q6H 11/05/17 hydrALAZINE [Apresoline] 25 mg PO TID 11/05/17 Surgical History: appendectomy, hysterectomy - and BSO, - - c-sections, L breast I+D for abscess, fistula placement LUE, L ankle surgery, appendectomy, PDA repair. Excision pilonidal cyst ulcer about 4 years ago. Smoking Status: Current every day smoker - *Family History Maternal History Items: Cancer, COPD, Diabetes, Hypertension, Renal Disease, Stroke Paternal History Items: Diabetes Sibling History Items: Cancer, Diabetes Review of Systems Comment: ROS: In general: Patient has been in good health, denied of any constitutional symptoms, such as weight loss, or gain, fever, chills, or night sweats. Patient denied of any profound fatigue. HEENT: Unremarkable. Patient denied of any dizziness, chronic headache, blurred vision, double vision, dry mouth, or nasal congestion. CV/respiratory: See HPI. GI: See HPI. She had nausea and vomiting at home. : Patient denied any significant urinary symptoms. Neurology: Unremarkable. There is no history of seizure as an adult. Psychological: Unremarkable. ?. Endocrine: Unremarkable. Musculoskeletal: Unremarkable. VTE Information - Inpt Only VTE Present on Admission: No VTE Mechan Device Prophylaxis: Knee High JUANCHO Hose VTE Pharm Prophylaxis ordered?: Yes Patient Problems: Active and Suspected Problems Pneumonia (Acute) Objective: In general, patient is a well-nourished and developed adult. HEENT: Head is atraumatic, and normocephalic. Pupils are equal, round, and reactive to light and accommodations. Neck is supple. There is no lymphadenopathy, or thyromegaly. Oral mucosa is pink, and moist. There are no lesions. Heart: Auscultation is normal with regular rhythm and rate. There is no extra heart sounds, or murmurs. S1 and S2 are present. Point of maximal impulse is not displaced. Lungs: Mostly clear, with rales at right mid lung field anteriorly. Abdomen: Abdominal wall is non-tender, and non-distended. There is no palpable mass or organomegaly. Normoactive bowel sounds are present. Extremities: There is no cyanosis or clubbing. Peripheral pulses are palpable. There is no edema. Skin: There are no any skin discoloration or lesions. Neurological: CN II - XII are intact. Sensory and motor functions are grossly normal with no obvious deficit. Cerebellar functions are within normal range. Gait was not tested. - Physical Exam Vital Signs Temp Pulse Resp BP Pulse Ox 97.8 F 81 16 186/84 H 95 11/05/17 15:43 11/05/17 18:54 11/05/17 18:45 11/05/17 15:43 11/05/17 18:45 Oxygen Delivery Method Room Air Weight: 193 lb 5.526 oz Body Mass Index (BMI) 31.1 Intake and Output for Last 24 Hours 11/03/17 11/04/17 11/05/17 23:59 23:59 23:59 Intake Total 372 / 372 Balance 372 / 372 Microbiology Past 72 Hours 11/05/17 18:00 Legionella Antigen - Final Urine, Clean Catch 11/05/17 14:40 C. difficile DNA Amplification - Final Stool 11/05/17 13:20 Influenza Types A,B Direct FA ([facility]) - Final Mucosa - Nasopharyngeal Diagnostic Data Chest X-Ray 11/05/17 08:50 IMPRESSION: Compared to 31 October 2017 there is increased interstitial markings with right upper lobe lateral patchy airspace disease concerning for infectious infiltrate in the appropriate clinical setting. Underlying cardiogenic edema/alveolar disease is not excluded. Recommend repeat evaluation after appropriate treatment. Electronically Signed: Ariel Salas DO at 9:10 EDT , Service support , Assessment/Plan Active and Suspected Problems Pneumonia (Acute) Patient is a 41 years old female with multiple medical problems, presents to ED with complaining of shortness of breath, admitted on 11/05/17. She started to have some respiratory problems one day prior to admission, gradually worsening today. She had some fever and chills, up to temp 100.2 at home. She has developed dry cough, but she has some cough from smoking and underling COPD. She had seen blood mixed with stool coming from colostomy. She had very high output about one week ago, started with saida bleed observed in the colostomy bag. She had consulted her PCP, had blood work in the office. After she had consulted regarding generalized weakness, she was alerted that her Hgb was low, advised to come to ED. She continues to see some blood in stool, but had stopped about 4 days ago. Record was reviewed for Hgb, which has been ranging from 7.3 to 10. She was recently discharged form hospital on 10/26, an seen in ED on 10/31. Last Hgb on 10/31 was 8.2. CXR showed bilateral diffuse infiltrate , and prominent area probably due to infiltrate at right upper lobe. She was afebrile, and WBC was 6/5. She was discharged from hospital on 10/26/17 for c. difficile, still on vancomycin PO. She has h/o DM I, ESRD, COPD, s/p colostomy after she developed large ulcer close to rectum. #1 Bilateral pneumonia. Started on vancomycin and Zosyn started for HCAP. She was recently admitted to hospital. Continue bronchodilator, DuoNeb and albuterol prn. Oxygen supplement. #2 Recent c. diff colitis. Continue vancomycin po. Consult ID for further management. #3 DM I. Continue home regimen of meal time and long-acting insulin. Add sliding scale insulin. #4 Pressure ulcer, sarcal/coccyx. Wound RN consult. #5 Recent blood in stool. Hgb appears stable. She did not have any episode for bleeding. She was scheduled for colonoscopy as outpatient, but needs to defer until she is well. #6 ESRD. She is on HD T-T-Mon, but had missed Monday. Consult nephrology. VTE prophylaxis: heparin SQ. GI prophylaxis: PPI po. Patient is full code. Disposition: to be determined. Code Visit Inpatient E&M: 80805 Init Hosp L3
[2017-11-05] MEDS: guaiFENesin 1,200 MG Tablet 1200 MG PO (21:48)
[2017-11-05 21:51] LABS: Bedside Glucose 179 mg/dL (70-110)
[2017-11-05] MEDS: 0.9% NaCl Peripheral Flush Adult/Peds IV (21:56)
[2017-11-05] MEDS: Mag Hydrox/Al Hydrox/Simeth 30 ML UDC PO (21:56)
[2017-11-05] MEDS: hydrALAZINE 25 MG Tablet PO (21:59)
[2017-11-05] MEDS: Carvedilol 25 MG Tablet PO (22:01)
[2017-11-06] VITALS (20 sets, daily range): BP systolic 119–263; BP diastolic 61–90; PULSE 67–98; RESP 16–24; TEMP 36.4–38.8; O2SAT 82–98
[2017-11-06 00:09] LABS: M R Staph aureus DNA By PCR Negative (Negative); Probe Check PASS; Specimen Processing Control PASS
[2017-11-06] MEDS: Acetaminophen 325 MG Tablet 650 MG PO ×3 (00:36→21:50)
[2017-11-06] MEDS: 0.9% NaCl Peripheral Flush Adult/Peds IV ×3 (03:50→22:39)
[2017-11-06] MEDS: oxyCODONE 5 MG Tablet PO ×4 (03:52→21:49)
[2017-11-06] MEDS: proMETHazine 25 MG/ML Syringe 12.5 MG IV (03:57)
[2017-11-06] MEDS: hydrALAZINE 25 MG Tablet PO ×2 (05:35→21:48)
[2017-11-06] MEDS: Heparin Injection 5,000 UNITS/ML Syringe 5000 UNITS SC ×3 (05:36→21:51)
[2017-11-06 06:04] LABS: Hematocrit 24.9 % (37-47); Hemoglobin 8.2 g/dl (12.0-15.0); Mean Corp Hgb Conc 32.9 g/gl (32-36); Mean Corpuscular Hgb 33.3 pg (27.0-32.0); Mean Corpuscular Volume 101.2 fL (81-99); Mean Platelet Vol. 8.1 fl (6.2-12.0); Platelet Count 134 K/mm3 (150-450); RBC Distribution Width CV 14.8 % (11.6-14.6); RBC Distribution Width SD 51.6 fl (35.1-43.9); Red Blood Count 2.46 M/mm3 (4.2-5.4); White Blood Count 6.8 K/mm3 (4.4-11.0)
[2017-11-06 06:16] LABS: Vancomycin, Random Level 17.3 ug/mL (0.0-15.0)
[2017-11-06 06:28] LABS: Anion Gap 8 (5-15); BUN 44 mg/dL (7-18); BUN/Creat Ratio 7.3 RATIO (10-20); Chloride 108 mmol/L (98-107); Creatinine, Serum 6.01 mg/dL (0.55-1.02); EST Glomerular Filtration Rate 8 mL/min (>60); Est Glom Filt Rate - Afr Amer 10 mL/min (>60); Glucose 161 mg/dL (74-106); Potassium 5.5 mmol/L (3.5-5.1); Sodium Level 139 mmol/L (136-145)
[2017-11-06 06:32] LABS: Scan Indicated on CBC? Y/N NO
[2017-11-06] MEDS: Ipratropium/Albuterol Sulfate 3 ML AMPUL.NEB INHALATION ×5 (06:47→23:01)
[2017-11-06] MEDS: Ondansetron 4 MG/2 ML Vial IV (06:51)
--- NOTE | 2017-11-06 06:59 | NURSING ---
This RN reviewed charting completed by student nurse Debbie Vazquez and agrees with charting.
[2017-11-06 07:01] LABS: Bedside Glucose 163 mg/dL (70-110)
--- NOTE | 2017-11-06 08:21 | CPS ---
pt increased to 3.5 lpm for decreased saturation. pt's nurse aware of change.
--- NOTE | 2017-11-06 08:26 | NURSING ---
Removed colostomy appliance. there was stool on the flange and the pouch was a urostomy pouch. patient's stool is typically quite thick, so the pouch would need to be removed to empty the appliance each time. stoma is pink and moist. sits slightly above the skin level. peristomal skin is intact. cleansed peristomal skin with warm water and patted dry. applied a new 2 piece flat Soumya appliance with lock n' roll closure. pt tolerated well.
[2017-11-06] MEDS: Calcium Acetate 667 MG Capsule PO ×3 (08:50→21:47)
[2017-11-06] MEDS: Aspirin 81 MG TAB.CHEW PO (08:50)
--- NOTE | 2017-11-06 08:50 | NURSING ---
wound photo: sacrum
[2017-11-06] MEDS: dilTIAZem CD 240 MG Capsule PO (08:53)
[2017-11-06] MEDS: Carvedilol 25 MG Tablet PO ×2 (08:53→21:49)
[2017-11-06] MEDS: guaiFENesin 1,200 MG Tablet 1200 MG PO ×2 (08:53→21:49)
[2017-11-06] MEDS: FLUoxetine 20 MG Capsule 40 MG PO (08:53)
[2017-11-06] MEDS: Lisinopril 20 MG Tablet PO (08:54)
[2017-11-06] MEDS: Pantoprazole Sodium 20 MG Tablet PO (08:55)
[2017-11-06] MEDS: Piperacil/Tazobactam 3.375 GM/50 ML ML IV (09:06)
--- NOTE | 2017-11-06 10:09 | PCM.RX.CS ---
Consult Pharmacy has been consulted to manage selected antiobiotic: Vancomycin Type of Consult: Follow-up Suspected Infection: Pneumonia Labs: Sodium 139 mmol/L (136-145) 11/06/17 05:05 Potassium 5.5 mmol/L (3.5-5.1) H 11/06/17 05:05 Chloride 108 mmol/L (98-107) H 11/06/17 05:05 Carbon Dioxide 23.0 mmol/L (21.0-32.0) 11/06/17 05:05 Anion Gap 8 (5-15) 11/06/17 05:05 BUN 44 mg/dL (7-18) H 11/06/17 05:05 Creatinine 6.01 mg/dL (0.55-1.02) H 11/06/17 05:05 Est GFR (MDRD) Af Amer 10 mL/min (>60) L 11/06/17 05:05 Est GFR (MDRD) Non-Af 8 mL/min (>60) L 11/06/17 05:05 BUN/Creatinine Ratio 7.3 RATIO (10-20) L 11/06/17 05:05 Glucose 161 mg/dL (74-106) H 11/06/17 05:05 Random Vancomycin 17.3 ug/mL (0.0-15.0) H 11/06/17 05:05 Microbiology: Microbiology 11/05/17 18:00 Urine, Clean Catch Streptococcus pneumoniae Antigen (M - Final 11/05/17 18:00 Urine, Clean Catch Legionella Antigen - Final 11/05/17 14:40 Stool C. difficile DNA Amplification - Final 11/05/17 13:20 Mucosa - Nasopharyngeal Influenza Types A,B Direct FA ([facility]) - Final Pharmacy Plan for Drug Dosing: Pharmacy Service will continue to monitor and adjust dosing as required.
--- NOTE | 2017-11-06 12:03 | PCM.PN.HOSP ---
Patient Problems: Active and Suspected Problems Pneumonia (Acute) Subjective: More short of breath earlier today but improved with the oxygen. Patient vomited up breakfast this morning and just has this burning in her belly. Vitals/I&O's: Vital Signs Temp Pulse Resp BP Pulse Ox 36.6 C 78 16 171/90 H 91 11/06/17 09:00 11/06/17 10:56 11/06/17 10:56 11/06/17 09:00 11/06/17 10:56 Oxygen Flow Rate (L/min) 3.5 Oxygen Delivery Method Nasal Cannula Weight: 87.7 kg Body Mass Index (BMI) 31.1 Intake and Output for Last 24 Hours 11/04/17 11/05/17 11/06/17 23:59 23:59 23:59 Intake Total 372 / 372 1196.5 / 1196.5 Balance 372 / 372 1196.5 / 1196.5 General: Alert HEENT: Atraumatic, Normocephalic Neck: No Nodes, Thyroid Normal Size and Texture Lungs: Normal air movement, - - Bibasilar crackles Cardiovascular: Regular rate, Regular Rhythm, Normal S1, Normal S2, No murmurs Abdomen: Bowel Sounds Present, Soft, Tender - Epigastric Extremities: No clubbing, No edema Skin: - - Fistula in left upper extremity Psych/Mental Status: Normal Affect, Appropriate Microbiology Past 72 Hours 11/05/17 18:00 Urine, Clean Catch Streptococcus pneumoniae Antigen (M - Final 11/05/17 18:00 Urine, Clean Catch Legionella Antigen - Final 11/05/17 14:40 Stool C. difficile DNA Amplification - Final 11/05/17 13:20 Mucosa - Nasopharyngeal Influenza Types A,B Direct FA ([facility]) - Final Laboratory Results 11/05/17 21:46: POC Glucose 179 H 11/05/17 22:00: MRSA (PCR) Negative 11/06/17 05:05: WBC 6.8, RBC 2.46 L, Hgb 8.2 L, Hct 24.9 L, MCV 101.2 H, MCH 33.3 H, MCHC 32.9, RDW 14.8 H, RDW Differential 51.6 H, Plt Count 134 L, MPV 8.1 11/06/17 05:05: Sodium 139, Potassium 5.5 H, Chloride 108 H, Carbon Dioxide 23.0, Anion Gap 8, BUN 44 H, Creatinine 6.01 H, Estim Creat Clear Calc 11.30, Est GFR (MDRD) Af Amer 10 L, Est GFR (MDRD) Non-Af 8 L, BUN/Creatinine Ratio 7.3 L, Glucose 161 H, Calcium 8.0 L 11/06/17 05:05: Random Vancomycin 17.3 H 11/06/17 06:53: POC Glucose 163 H Current Medications Acetaminophen (Tylenol) 650 mg PO Q6H PRN PRN PRN Reason: Mild Pain (1-3)/Temp > 100.7 F Last Admin: 11/06/17 00:36 Dose: 650 mg Al Hydroxide/Mg Hydroxide (Mylanta Ii) 30 ml PO Q6H PRN PRN PRN Reason: Gastric burning Last Admin: 11/05/17 21:56 Dose: 30 ml Albuterol Sulfate (Ventolin Aerosols) 2.5 mg INHALATION Q2H PRN PRN PRN Reason: SHORTNESS OF BREATH Albuterol/Ipratropium (Duoneb) 3 ml INHALATION Q4H.RT [facility] Last Admin: 11/06/17 10:56 Dose: 3 ml Aspirin (Aspirin, Baby) 81 mg PO DAILY@0800 [facility] Last Admin: 11/06/17 08:50 Dose: 81 mg Bisacodyl (Dulcolax) 5 mg PO DAILY PRN PRN PRN Reason: Constipation Calcium Acetate (Phoslo Gel Cap) 667 mg PO TIDCM [facility] Last Admin: 11/06/17 08:50 Dose: 667 mg Carvedilol (Coreg) 25 mg PO BID [facility] Last Admin: 11/06/17 08:53 Dose: 25 mg Dextrose (D50w Syringe) 0 gm IV X1 PRN; Protocol PRN Reason: Hypoglycemia Diltiazem HCl (Cardizem Cd) 240 mg PO DAILY [facility] Last Admin: 11/06/17 08:53 Dose: 240 mg Ergocalciferol (Vitamin D) 50,000 unit PO Fr@1000 [facility] Fluoxetine HCl (Prozac) 40 mg PO DAILY [facility] Last Admin: 11/06/17 08:53 Dose: 40 mg Glucagon () 1 mg IM .X1 PRN PRN Reason: Hypoglycemia Guaifenesin (Mucinex) 1,200 mg PO BID [facility] Last Admin: 11/06/17 08:53 Dose: 1,200 mg Heparin Sodium (Porcine) () 5,000 units SC Q8 [facility] Last Admin: 11/06/17 05:36 Dose: 5,000 units Hydralazine HCl (Apresoline) 25 mg PO TID [facility] Last Admin: 11/06/17 05:35 Dose: 25 mg Piperacillin Sod/Tazobactam Sod (Zosyn) 3.375 gm in 50 mls @ 12.5 mls/hr IV Q12 [facility] Last Admin: 11/06/17 09:06 Dose: 12.5 mls/hr Insulin Aspart (Novolog Flexpen (Bkc)) 8 units SC TIDCM [facility] Last Admin: 11/06/17 11:59 Dose: Not Given Insulin Aspart (Novolog Flexpen (Bkc)) 0 units SC ACHS [facility] PRN Reason: Protocol Last Admin: 11/06/17 11:59 Dose: Not Given Lisinopril (Zestril) 20 mg PO DAILY [facility] Last Admin: 11/06/17 08:54 Dose: 20 mg Magnesium Hydroxide (Milk Of Magnesia) 30 ml PO DAILY PRN PRN Reason: Constipation Ondansetron HCl (Zofran) 4 mg IV Q8H PRN PRN PRN Reason: NAUSEA Last Admin: 11/06/17 06:51 Dose: 4 mg Oxycodone HCl (Oxyir) 5 - 10 mg PO Q4H PRN PRN PRN Reason: MOD-SEVERE PAIN (4-10/10) Last Admin: 11/06/17 09:01 Dose: 10 mg Pantoprazole Sodium (Protonix) 20 mg PO DAILY [facility] Last Admin: 11/06/17 08:55 Dose: 20 mg Promethazine HCl (Phenergan) 12.5 mg IV Q6H PRN PRN PRN Reason: NAUSEA/VOMITING Last Admin: 11/06/17 03:57 Dose: 12.5 mg Promethazine HCl (Phenergan Tablet) 25 mg PO Q6H PRN PRN PRN Reason: NAUSEA Sodium Bicarbonate (Sodium Bicarbonate) 650 mg PO TuThSa@1000 [facility] Sodium Chloride () 5 - 30 ml IV UD PRN PRN Reason: SALINE FLUSH Last Admin: 11/06/17 03:50 Dose: 10 ml Vancomycin HCl (Vancomycin 125mg/5ml Susp) 125 mg PO Q6 [facility] Last Admin: 11/06/17 05:37 Dose: 125 mg Zolpidem Tartrate (Ambien (Generic)) 5 mg PO QHS PRN PRN PRN Reason: INSOMNIA Medical Necessity - Tobacco Use Smoking Status: Current every day smoker Tobacco Use: Cigarettes Assessment/Plan Active and Suspected Problems Pneumonia (Acute) 1. Suspected gram-negative pneumonia Patient at risk for hospital-acquired pneumonia given her recent discharged on the fifth and also being a dialysis patient On Zosyn Pulmonary toilet ID on consult 2. Intractable nausea and vomiting. exam unremarkable known gastroparesis cw PPI and antiemetics 3. ESRD on HD nephrology on consult 4. recent Cdiff cdiff tox negative here continue with vancomycin through 11/09 (original stop date) 5. DVT proph: LMWH Code Visit Inpatient E&M: 93860 Subs Hosp L2
[2017-11-06] MEDS: proMETHazine 25 MG Tablet PO ×2 (12:04→21:58)
[2017-11-06 12:11] LABS: Bedside Glucose 126 mg/dL (70-110)
--- NOTE | 2017-11-06 12:17 | PN_ITS ---
Patient Problems: Active and Suspected Problems Pneumonia (Acute) Subjective: More short of breath earlier today but improved with the oxygen. Patient vomited up breakfast this morning and just has this burning in her belly. Vitals/I&O's: Vital Signs Temp Pulse Resp BP Pulse Ox 36.6 C 78 16 171/90 H 91 11/06/17 09:00 11/06/17 10:56 11/06/17 10:56 11/06/17 09:00 11/06/17 10:56 Oxygen Flow Rate (L/min) 3.5 Oxygen Delivery Method Nasal Cannula Weight: 87.7 kg Body Mass Index (BMI) 31.1 Intake and Output for Last 24 Hours 11/04/17 11/05/17 11/06/17 23:59 23:59 23:59 Intake Total 372 / 372 1196.5 / 1196.5 Balance 372 / 372 1196.5 / 1196.5 General: Alert HEENT: Atraumatic, Normocephalic Neck: No Nodes, Thyroid Normal Size and Texture Lungs: Normal air movement, - - Bibasilar crackles Cardiovascular: Regular rate, Regular Rhythm, Normal S1, Normal S2, No murmurs Abdomen: Bowel Sounds Present, Soft, Tender - Epigastric Extremities: No clubbing, No edema Skin: - - Fistula in left upper extremity Psych/Mental Status: Normal Affect, Appropriate Microbiology Past 72 Hours 11/05/17 18:00 Urine, Clean Catch Streptococcus pneumoniae Antigen (M - Final 11/05/17 18:00 Urine, Clean Catch Legionella Antigen - Final 11/05/17 14:40 Stool C. difficile DNA Amplification - Final 11/05/17 13:20 Mucosa - Nasopharyngeal Influenza Types A,B Direct FA (SCARLET) - Final Laboratory Results 11/05/17 21:46: POC Glucose 179 H 11/05/17 22:00: MRSA (PCR) Negative 11/06/17 05:05: WBC 6.8, RBC 2.46 L, Hgb 8.2 L, Hct 24.9 L, MCV 101.2 H, MCH 33.3 H, MCHC 32.9, RDW 14.8 H, RDW Differential 51.6 H, Plt Count 134 L, MPV 8.1 11/06/17 05:05: Sodium 139, Potassium 5.5 H, Chloride 108 H, Carbon Dioxide 23.0 , Anion Gap 8, BUN 44 H, Creatinine 6.01 H, Estim Creat Clear Calc 11.30, Est GFR (MDRD) Af Amer 10 L, Est GFR (MDRD) Non-Af 8 L, BUN/Creatinine Ratio 7.3 L, Glucose 161 H, Calcium 8.0 L 11/06/17 05:05: Random Vancomycin 17.3 H 11/06/17 06:53: POC Glucose 163 H Current Medications Acetaminophen (Tylenol) 650 mg PO Q6H PRN PRN PRN Reason: Mild Pain (1-3)/Temp > 100.7 F Last Admin: 11/06/17 00:36 Dose: 650 mg Al Hydroxide/Mg Hydroxide (Mylanta Ii) 30 ml PO Q6H PRN PRN PRN Reason: Gastric burning Last Admin: 11/05/17 21:56 Dose: 30 ml Albuterol Sulfate (Ventolin Aerosols) 2.5 mg INHALATION Q2H PRN PRN PRN Reason: SHORTNESS OF BREATH Albuterol/Ipratropium (Duoneb) 3 ml INHALATION Q4H.RT [facility] Last Admin: 11/06/17 10:56 Dose: 3 ml Aspirin (Aspirin, Baby) 81 mg PO DAILY@0800 [facility] Last Admin: 11/06/17 08:50 Dose: 81 mg Bisacodyl (Dulcolax) 5 mg PO DAILY PRN PRN PRN Reason: Constipation Calcium Acetate (Phoslo Gel Cap) 667 mg PO TIDCM [facility] Last Admin: 11/06/17 08:50 Dose: 667 mg Carvedilol (Coreg) 25 mg PO BID [facility] Last Admin: 11/06/17 08:53 Dose: 25 mg Dextrose (D50w Syringe) 0 gm IV X1 PRN; Protocol PRN Reason: Hypoglycemia Diltiazem HCl (Cardizem Cd) 240 mg PO DAILY [facility] Last Admin: 11/06/17 08:53 Dose: 240 mg Ergocalciferol (Vitamin D) 50,000 unit PO Fr@1000 [facility] Fluoxetine HCl (Prozac) 40 mg PO DAILY [facility] Last Admin: 11/06/17 08:53 Dose: 40 mg Glucagon () 1 mg IM .X1 PRN PRN Reason: Hypoglycemia Guaifenesin (Mucinex) 1,200 mg PO BID [facility] Last Admin: 11/06/17 08:53 Dose: 1,200 mg Heparin Sodium (Porcine) () 5,000 units SC Q8 [facility] Last Admin: 11/06/17 05:36 Dose: 5,000 units Hydralazine HCl (Apresoline) 25 mg PO TID [facility] Last Admin: 11/06/17 05:35 Dose: 25 mg Piperacillin Sod/Tazobactam Sod (Zosyn) 3.375 gm in 50 mls @ 12.5 mls/hr IV Q12 [facility] Last Admin: 11/06/17 09:06 Dose: 12.5 mls/hr Insulin Aspart (Novolog Flexpen (Bkc)) 8 units SC TIDCM [facility] Last Admin: 11/06/17 11:59 Dose: Not Given Insulin Aspart (Novolog Flexpen (Bkc)) 0 units SC ACHS [facility] PRN Reason: Protocol Last Admin: 11/06/17 11:59 Dose: Not Given Lisinopril (Zestril) 20 mg PO DAILY [facility] Last Admin: 11/06/17 08:54 Dose: 20 mg Magnesium Hydroxide (Milk Of Magnesia) 30 ml PO DAILY PRN PRN Reason: Constipation Ondansetron HCl (Zofran) 4 mg IV Q8H PRN PRN PRN Reason: NAUSEA Last Admin: 11/06/17 06:51 Dose: 4 mg Oxycodone HCl (Oxyir) 5 - 10 mg PO Q4H PRN PRN PRN Reason: MOD-SEVERE PAIN (4-10/10) Last Admin: 11/06/17 09:01 Dose: 10 mg Pantoprazole Sodium (Protonix) 20 mg PO DAILY [facility] Last Admin: 11/06/17 08:55 Dose: 20 mg Promethazine HCl (Phenergan) 12.5 mg IV Q6H PRN PRN PRN Reason: NAUSEA/VOMITING Last Admin: 11/06/17 03:57 Dose: 12.5 mg Promethazine HCl (Phenergan Tablet) 25 mg PO Q6H PRN PRN PRN Reason: NAUSEA Sodium Bicarbonate (Sodium Bicarbonate) 650 mg PO TuThSa@1000 [facility] Sodium Chloride () 5 - 30 ml IV UD PRN PRN Reason: SALINE FLUSH Last Admin: 11/06/17 03:50 Dose: 10 ml Vancomycin HCl (Vancomycin 125mg/5ml Susp) 125 mg PO Q6 [facility] Last Admin: 11/06/17 05:37 Dose: 125 mg Zolpidem Tartrate (Ambien (Generic)) 5 mg PO QHS PRN PRN PRN Reason: INSOMNIA Medical Necessity - Tobacco Use Smoking Status: Current every day smoker Tobacco Use: Cigarettes Assessment/Plan Active and Suspected Problems Pneumonia (Acute) 1. Suspected gram-negative pneumonia * Patient at risk for hospital-acquired pneumonia given her recent discharged on the fifth and also being a dialysis patient * On Zosyn * Pulmonary toilet * ID on consult 2. Intractable nausea and vomiting. * exam unremarkable * known gastroparesis * cw PPI and antiemetics 3. ESRD * on HD * nephrology on consult 4. recent Cdiff * cdiff tox negative here * continue with vancomycin through 11/09 (original stop date) 5. DVT proph: * LMWH Code Visit Inpatient E&M: 88412 Subs Hosp L2
--- NOTE | 2017-11-06 13:12 | PCM.HP.ID ---
Problem List (1) Pneumonia Status: Acute Qualifiers: Pneumonia type: due to unspecified organism Laterality: bilateral Reason for Consult: pneumonia Consulted by: Dr. Roman History of Present Illness: The patient is a 41 year old F with ESRD and recent dx of cdiff, diarrhea now resolved on po vanc who presented 11/05 with one day of dry cough and SOB. No fever or chills. No abd pain, no headache or congestion. Came to ED, started on vanc/zosyn. Today, not feeling much better, minimal improvement. No diarrhea here. Full ROS performed and neg except as noted above. - Medical History Past Medical History (Chronic Problems): Chronic Problems Decubitus ulcer, stage III (Chronic) CAD (coronary artery disease) (Chronic) Anemia, chronic disease (Chronic) Pilonidal cyst with abscess (Chronic) GABRIEL (obstructive sleep apnea) (Chronic) ESRD on dialysis (Chronic) Depression (Chronic) Anxiety (Chronic) HTN (hypertension) (Chronic) Nonischemic cardiomyopathy (Chronic) With ejection fraction 45 - 50%; with angiographically normal coronary arteries 05/2013; follows up with Dr. Magdaleno S/P repair of PDA (patent ductus arteriosus) (Chronic) At young age Diabetes mellitus type 1 (Chronic) Hyperlipidemia (Chronic) Obesity (BMI 30.0-34.9) (Chronic) Gastroparesis (Chronic) Allergies/Adverse Reactions: Allergies latex Allergy (Verified 11/05/17 08:34) Rash levofloxacin [From Levaquin] Adverse Reaction (Verified 11/05/17 08:34) PT CAN'T REMEMBER PT CAN'T REMEMBER metoclopramide HCl [From Reglan] Adverse Reaction (Verified 11/05/17 08:34) Nausea NSAIDS (Non-Steroidal Anti-Inflamma Adverse Reaction (Verified 11/05/17 08:34) kidney function oxycodone HCl [From Percocet] Adverse Reaction (Verified 11/05/17 08:34) HALLUCINATIONS Home Medications: Ambulatory Orders Medication Instructions Recorded Diltiazem HCl [Tiazac] 240 mg PO DAILY 07/10/15 Aspirin [Aspirin, Baby] 81 mg PO DAILY@0800 01/26/16 Calcium Acetate [Phoslo Gel Cap] 667 mg PO TIDCM 01/26/16 Ergocalciferol [Vitamin D] 50,000 unit PO FR 01/26/16 Insulin Aspart [Novolog Flexpen] 8 units SC TIDCM 01/26/16 Insulin Glargine,Hum.rec.anlog 5 unit SQ QHS 01/09/17 [Lantus] proMETHazine tablet [Phenergan 25 mg PO Q6H PRN PRN #10 tablet 03/06/17 tablet] Lisinopril 20 mg PO DAILY 03/29/17 Omeprazole Magnesium [Prilosec Otc] 20 mg PO DAILY 03/29/17 Sodium Bicarbonate 650 mg PO TUTHSA 03/29/17 Acetaminophen [Tylenol Tablet] 650 mg PO Q6H PRN PRN tablet 03/31/17 Carvedilol [Coreg (Beta Chang)] 25 mg PO BID 06/17/17 Fluoxetine HCl 40 mg PO DAILY 09/02/17 Vancomycin [Vancocin] 125 mg PO Q6H 11/05/17 hydrALAZINE [Apresoline] 25 mg PO TID 11/05/17 - Social History SMOKING STATUS:: Former smoker Vital Signs Temp Pulse Resp BP Pulse Ox 97.8 F 75 20 H 171/90 H 96 11/06/17 09:00 11/06/17 12:17 11/06/17 11:00 11/06/17 09:00 11/06/17 11:00 Oxygen Flow Rate (L/min) 3.5 Oxygen Delivery Method Nasal Cannula Weight: 87.7 kg Body Mass Index (BMI) 31.1 Microbiology Past 72 Hours 11/05/17 18:00 Streptococcus pneumoniae Antigen (M - Final Urine, Clean Catch 11/05/17 18:00 Legionella Antigen - Final Urine, Clean Catch 11/05/17 14:40 C. difficile DNA Amplification - Final Stool 11/05/17 13:20 Influenza Types A,B Direct FA ([facility]) - Final Mucosa - Nasopharyngeal Laboratory Tests Past 24 Hrs 11/05/17 11/06/17 11/06/17 22:00 05:05 05:05 WBC 6.8 RBC 2.46 L Hgb 8.2 L Hct 24.9 L MCV 101.2 H MCH 33.3 H MCHC 32.9 RDW 14.8 H RDW Differential 51.6 H Plt Count 134 L MPV 8.1 Sodium 139 Potassium 5.5 H Chloride 108 H Carbon Dioxide 23.0 Anion Gap 8 BUN 44 H Creatinine 6.01 H Estim Creat Clear Calc 11.30 Est GFR (MDRD) Af Amer 10 L Est GFR (MDRD) Non-Af 8 L BUN/Creatinine Ratio 7.3 L Glucose 161 H Calcium 8.0 L Random Vancomycin MRSA (PCR) Negative 11/06/17 05:05 WBC RBC Hgb Hct MCV MCH MCHC RDW RDW Differential Plt Count MPV Sodium Potassium Chloride Carbon Dioxide Anion Gap BUN Creatinine Estim Creat Clear Calc Est GFR (MDRD) Af Amer Est GFR (MDRD) Non-Af BUN/Creatinine Ratio Glucose Calcium Random Vancomycin 17.3 H MRSA (PCR) - Other Studies Radiology: [] reviewed Other Studies: [] Route of nutrition/ use of supplements: [] Nutritional Intake: [] IV Site: [] Meyer Catheter: [] - Physical Exam General: Alert, Oriented x3, Cooperative, No apparent distress HEENT: Atraumatic, PERRLA, EOMI Neck: Supple, No Nodes Lungs: Rhonchi - worse in upper R Cardiovascular: Regular rate, Regular Rhythm Abdomen: Bowel Sounds Present, Soft, Non Tender, Non-Distended Extremities: Edema Skin: No rashes IV Site: Peripheral, without redness Musculoskeletal: No Tenderness to Palpation of Joints or Extremities Neurological: Cranial nerves II-XII grossly intact - Assessment/Plan Antibiotics: [] Assessment/Plan: [] Active and Suspected Problems Pneumonia (Acute) CAP with h/o ESRD - no fever, no leukocytosis. Urine Ags ordered. Will order resp viral panel and mycoplasma Igg/IgM. Will narrow abx to ceftriaxone and add azithro for atypical coverage. Cdiff - on po vanc, well controlled Will follow, thank you.
--- NOTE | 2017-11-06 13:19 | CASEMGMT ---
Face to Face with patient for initial transition planning/care coordination assessment. MALLORY SCHUMACHER introduced self and role at [facility], pt voices understanding and consents to assessment at this time. Pt is lying in bed in no distress at this time. Pt is A/O x4 at this time and answers all questions appropriately at this time. Care providers, pharmacy, and demographics verified. See attached link. Pt voices no further concerns/needs at this time. Advised pt to ask for CM if any further questions/concerns/needs arise, voices understanding. Resumption of care order for HHC put in at this time. CM to follow for any further discharge planning/needs. PLAN: Home w/ [facility]. S[place]en MALLORY SCHUMACHER
--- NOTE | 2017-11-06 13:20 | PCM.CONS.R ---
Problem List (1) ESRD (end stage renal disease) on dialysis Status: Acute Consultation - Renal PCP/ Referring MD: Requesting physician: [] Primary care physician: Christopher Foy - History of Present Illness History of Present Illness: The patient is a 41 year old F PMH of ESRD on MWF schedule of HD. HTN. hyperlipidemia, anemia, DM, gastroparesis, recent C diff colitis presented to the hospital on 415 for one day of SOB, fever and was admitted for pneumonia. I was consulted for ESRD care. last HD session was on Friday 11/03. ROS: 12 systems review is negative except SOB. vomiting with fever, chills[] - Allergies Allergies: Allergies latex Allergy (Verified 11/05/17 08:34) Rash levofloxacin [From Levaquin] Adverse Reaction (Verified 11/05/17 08:34) PT CAN'T REMEMBER PT CAN'T REMEMBER metoclopramide HCl [From Reglan] Adverse Reaction (Verified 11/05/17 08:34) Nausea NSAIDS (Non-Steroidal Anti-Inflamma Adverse Reaction (Verified 11/05/17 08:34) kidney function oxycodone HCl [From Percocet] Adverse Reaction (Verified 11/05/17 08:34) HALLUCINATIONS - Current Medications Current Medications: Current Medications Acetaminophen (Tylenol) 650 mg PO Q6H PRN PRN PRN Reason: Mild Pain (1-3)/Temp > 100.7 F Last Admin: 11/06/17 12:04 Dose: 650 mg Al Hydroxide/Mg Hydroxide (Mylanta Ii) 30 ml PO Q6H PRN PRN PRN Reason: Gastric burning Last Admin: 11/05/17 21:56 Dose: 30 ml Albuterol Sulfate (Ventolin Aerosols) 2.5 mg INHALATION Q2H PRN PRN PRN Reason: SHORTNESS OF BREATH Albuterol/Ipratropium (Duoneb) 3 ml INHALATION Q4H.RT [facility] Last Admin: 11/06/17 10:56 Dose: 3 ml Aspirin (Aspirin, Baby) 81 mg PO DAILY@0800 [facility] Last Admin: 11/06/17 08:50 Dose: 81 mg Azithromycin (Zithromax) 500 mg PO Q24 [facility] Bisacodyl (Dulcolax) 5 mg PO DAILY PRN PRN PRN Reason: Constipation Calcium Acetate (Phoslo Gel Cap) 667 mg PO TIDCM [facility] Last Admin: 11/06/17 12:04 Dose: 667 mg Carvedilol (Coreg) 25 mg PO BID [facility] Last Admin: 11/06/17 08:53 Dose: 25 mg Dextrose (D50w Syringe) 0 gm IV X1 PRN; Protocol PRN Reason: Hypoglycemia Diltiazem HCl (Cardizem Cd) 240 mg PO DAILY [facility] Last Admin: 11/06/17 08:53 Dose: 240 mg Ergocalciferol (Vitamin D) 50,000 unit PO Fr@1000 [facility] Fluoxetine HCl (Prozac) 40 mg PO DAILY [facility] Last Admin: 11/06/17 08:53 Dose: 40 mg Glucagon () 1 mg IM .X1 PRN PRN Reason: Hypoglycemia Guaifenesin (Mucinex) 1,200 mg PO BID [facility] Last Admin: 11/06/17 08:53 Dose: 1,200 mg Heparin Sodium (Porcine) () 5,000 units SC Q8 [facility] Last Admin: 11/06/17 05:36 Dose: 5,000 units Hydralazine HCl (Apresoline) 25 mg PO TID [facility] Last Admin: 11/06/17 05:35 Dose: 25 mg Ceftriaxone Sodium (Rocephin) 1 gm in 50 mls @ 100 mls/hr IV Q24 [facility] Insulin Aspart (Novolog Flexpen (Bkc)) 8 units SC TIDCM [facility] Last Admin: 11/06/17 11:59 Dose: Not Given Insulin Aspart (Novolog Flexpen (Bkc)) 0 units SC ACHS [facility] PRN Reason: Protocol Last Admin: 11/06/17 11:59 Dose: Not Given Lisinopril (Zestril) 20 mg PO DAILY [facility] Last Admin: 11/06/17 08:54 Dose: 20 mg Magnesium Hydroxide (Milk Of Magnesia) 30 ml PO DAILY PRN PRN Reason: Constipation Ondansetron HCl (Zofran) 4 mg IV Q8H PRN PRN PRN Reason: NAUSEA Last Admin: 11/06/17 06:51 Dose: 4 mg Oxycodone HCl (Oxyir) 5 - 10 mg PO Q4H PRN PRN PRN Reason: MOD-SEVERE PAIN (4-10/10) Last Admin: 11/06/17 09:01 Dose: 10 mg Pantoprazole Sodium (Protonix) 20 mg PO DAILY [facility] Last Admin: 11/06/17 08:55 Dose: 20 mg Promethazine HCl (Phenergan) 12.5 mg IV Q6H PRN PRN PRN Reason: NAUSEA/VOMITING Last Admin: 11/06/17 03:57 Dose: 12.5 mg Promethazine HCl (Phenergan Tablet) 25 mg PO Q6H PRN PRN PRN Reason: NAUSEA Last Admin: 11/06/17 12:04 Dose: 25 mg Sodium Bicarbonate (Sodium Bicarbonate) 650 mg PO TuThSa@1000 [facility] Sodium Chloride () 5 - 30 ml IV UD PRN PRN Reason: SALINE FLUSH Last Admin: 11/06/17 03:50 Dose: 10 ml Vancomycin HCl (Vancomycin 125mg/5ml Susp) 125 mg PO Q6 [facility] Last Admin: 11/06/17 12:05 Dose: 125 mg Zolpidem Tartrate (Ambien (Generic)) 5 mg PO QHS PRN PRN PRN Reason: INSOMNIA - Past Medical History Past Medical History (Chronic Problems): Chronic Problems Decubitus ulcer, stage III (Chronic) CAD (coronary artery disease) (Chronic) Anemia, chronic disease (Chronic) Pilonidal cyst with abscess (Chronic) GABRIEL (obstructive sleep apnea) (Chronic) ESRD on dialysis (Chronic) Depression (Chronic) Anxiety (Chronic) HTN (hypertension) (Chronic) Nonischemic cardiomyopathy (Chronic) With ejection fraction 45 - 50%; with angiographically normal coronary arteries 05/2013; follows up with Dr. Magdaleno S/P repair of PDA (patent ductus arteriosus) (Chronic) At young age Diabetes mellitus type 1 (Chronic) Hyperlipidemia (Chronic) Obesity (BMI 30.0-34.9) (Chronic) Gastroparesis (Chronic) - Past Surgical History Surgical History: appendectomy, hysterectomy - and BSO, - - c-sections, L breast I+D for abscess, fistula placement LUE, L ankle surgery, appendectomy, PDA repair. Excision pilonidal cyst ulcer about 4 years ago. - Social History Smoking Status: Current every day smoker - Family History Maternal History Items: Cancer, COPD, Diabetes, Hypertension, Renal Disease, Stroke Paternal History Items: Diabetes Sibling History Items: Cancer, Diabetes Patient Problems: Active and Suspected Problems Pneumonia (Acute) ESRD (end stage renal disease) on dialysis (Acute) - Physical Exam General: Alert, Oriented x3 HEENT: Atraumatic Oral: Moist Mucosa Neck: Supple, No JVD Lungs: - - equal air entry. left lung is clear. right upper field crackles Cardiovascular: Regular rate, Regular Rhythm, Normal S1 Abdomen: Bowel Sounds Present, Soft, Non Tender Extremities: No clubbing, No cyanosis Skin: No rashes Lymphatic: No Cervical, Supraclavicular, or Inguinal Adenopathy Neurological: Cranial nerves II-XII grossly intact, Neuro grossly intact Vital Signs Temp Pulse Resp BP Pulse Ox 97.8 F 75 20 H 171/90 H 96 11/06/17 09:00 11/06/17 12:17 11/06/17 11:00 11/06/17 09:00 11/06/17 11:00 Oxygen Flow Rate (L/min) 3.5 Oxygen Delivery Method Nasal Cannula Weight: 87.7 kg Body Mass Index (BMI) 31.1 Intake and Output for Last 24 Hours 11/04/17 11/05/17 11/06/17 23:59 23:59 23:59 Intake Total 372 / 372 1196.5 / 1196.5 Balance 372 / 372 1196.5 / 1196.5 Microbiology Past 72 Hours 11/05/17 18:00 Streptococcus pneumoniae Antigen (M - Final Urine, Clean Catch 11/05/17 18:00 Legionella Antigen - Final Urine, Clean Catch 11/05/17 14:40 C. difficile DNA Amplification - Final Stool 11/05/17 13:20 Influenza Types A,B Direct FA ([facility]) - Final Mucosa - Nasopharyngeal Laboratory Tests Past 24 Hrs 11/05/17 11/06/17 11/06/17 22:00 05:05 05:05 WBC 6.8 RBC 2.46 L Hgb 8.2 L Hct 24.9 L MCV 101.2 H MCH 33.3 H MCHC 32.9 RDW 14.8 H RDW Differential 51.6 H Plt Count 134 L MPV 8.1 Sodium 139 Potassium 5.5 H Chloride 108 H Carbon Dioxide 23.0 Anion Gap 8 BUN 44 H Creatinine 6.01 H Estim Creat Clear Calc 11.30 Est GFR (MDRD) Af Amer 10 L Est GFR (MDRD) Non-Af 8 L BUN/Creatinine Ratio 7.3 L Glucose 161 H Calcium 8.0 L Random Vancomycin MRSA (PCR) Negative 11/06/17 05:05 WBC RBC Hgb Hct MCV MCH MCHC RDW RDW Differential Plt Count MPV Sodium Potassium Chloride Carbon Dioxide Anion Gap BUN Creatinine Estim Creat Clear Calc Est GFR (MDRD) Af Amer Est GFR (MDRD) Non-Af BUN/Creatinine Ratio Glucose Calcium Random Vancomycin 17.3 H MRSA (PCR) POC Glucose 11/06/17 11/06/17 11/05/17 11:56 06:53 21:46 POC Glucose 126 H 163 H 179 H Assessment/Plan Active and Suspected Problems Pneumonia (Acute) ESRD (end stage renal disease) on dialysis (Acute) 1- ESRD on MWF. HD session today: 2K. BQ 400 DQ 600 UF 2L HD AVF Next HD session 11/08 2- Pneumonia. on Abx as per the primary service Will continue to follow Maria Isabel Valdivia MD [phone]
--- NOTE | 2017-11-06 13:28 | CON.PCM_ITS ---
Problem List (1) ESRD (end stage renal disease) on dialysis Status: Acute Consultation - Renal PCP/ Referring MD: Requesting physician: [] Primary care physician: Christopher Foy - History of Present Illness History of Present Illness: The patient is a 41 year old F PMH of ESRD on MWF schedule of HD. HTN. hyperlipidemia, anemia, DM, gastroparesis, recent C diff colitis presented to the hospital on 415 for one day of SOB, fever and was admitted for pneumonia. I was consulted for ESRD care. last HD session was on Friday 11/03. ROS: 12 systems review is negative except SOB. vomiting with fever, chills[] - Allergies Allergies: Allergies latex Allergy (Verified 11/05/17 08:34) Rash levofloxacin [From Levaquin] Adverse Reaction (Verified 11/05/17 08:34) PT CAN'T REMEMBER PT CAN'T REMEMBER metoclopramide HCl [From Reglan] Adverse Reaction (Verified 11/05/17 08:34) Nausea NSAIDS (Non-Steroidal Anti-Inflamma Adverse Reaction (Verified 11/05/17 08:34) kidney function oxycodone HCl [From Percocet] Adverse Reaction (Verified 11/05/17 08:34) HALLUCINATIONS - Current Medications Current Medications: Current Medications Acetaminophen (Tylenol) 650 mg PO Q6H PRN PRN PRN Reason: Mild Pain (1-3)/Temp > 100.7 F Last Admin: 11/06/17 12:04 Dose: 650 mg Al Hydroxide/Mg Hydroxide (Mylanta Ii) 30 ml PO Q6H PRN PRN PRN Reason: Gastric burning Last Admin: 11/05/17 21:56 Dose: 30 ml Albuterol Sulfate (Ventolin Aerosols) 2.5 mg INHALATION Q2H PRN PRN PRN Reason: SHORTNESS OF BREATH Albuterol/Ipratropium (Duoneb) 3 ml INHALATION Q4H.RT [facility] Last Admin: 11/06/17 10:56 Dose: 3 ml Aspirin (Aspirin, Baby) 81 mg PO DAILY@0800 [facility] Last Admin: 11/06/17 08:50 Dose: 81 mg Azithromycin (Zithromax) 500 mg PO Q24 [facility] Bisacodyl (Dulcolax) 5 mg PO DAILY PRN PRN PRN Reason: Constipation Calcium Acetate (Phoslo Gel Cap) 667 mg PO TIDCM [facility] Last Admin: 11/06/17 12:04 Dose: 667 mg Carvedilol (Coreg) 25 mg PO BID [facility] Last Admin: 11/06/17 08:53 Dose: 25 mg Dextrose (D50w Syringe) 0 gm IV X1 PRN; Protocol PRN Reason: Hypoglycemia Diltiazem HCl (Cardizem Cd) 240 mg PO DAILY [facility] Last Admin: 11/06/17 08:53 Dose: 240 mg Ergocalciferol (Vitamin D) 50,000 unit PO Fr@1000 [facility] Fluoxetine HCl (Prozac) 40 mg PO DAILY [facility] Last Admin: 11/06/17 08:53 Dose: 40 mg Glucagon () 1 mg IM .X1 PRN PRN Reason: Hypoglycemia Guaifenesin (Mucinex) 1,200 mg PO BID [facility] Last Admin: 11/06/17 08:53 Dose: 1,200 mg Heparin Sodium (Porcine) () 5,000 units SC Q8 [facility] Last Admin: 11/06/17 05:36 Dose: 5,000 units Hydralazine HCl (Apresoline) 25 mg PO TID [facility] Last Admin: 11/06/17 05:35 Dose: 25 mg Ceftriaxone Sodium (Rocephin) 1 gm in 50 mls @ 100 mls/hr IV Q24 [facility] Insulin Aspart (Novolog Flexpen (Bkc)) 8 units SC TIDCM [facility] Last Admin: 11/06/17 11:59 Dose: Not Given Insulin Aspart (Novolog Flexpen (Bkc)) 0 units SC ACHS [facility] PRN Reason: Protocol Last Admin: 11/06/17 11:59 Dose: Not Given Lisinopril (Zestril) 20 mg PO DAILY [facility] Last Admin: 11/06/17 08:54 Dose: 20 mg Magnesium Hydroxide (Milk Of Magnesia) 30 ml PO DAILY PRN PRN Reason: Constipation Ondansetron HCl (Zofran) 4 mg IV Q8H PRN PRN PRN Reason: NAUSEA Last Admin: 11/06/17 06:51 Dose: 4 mg Oxycodone HCl (Oxyir) 5 - 10 mg PO Q4H PRN PRN PRN Reason: MOD-SEVERE PAIN (4-10/10) Last Admin: 11/06/17 09:01 Dose: 10 mg Pantoprazole Sodium (Protonix) 20 mg PO DAILY [facility] Last Admin: 11/06/17 08:55 Dose: 20 mg Promethazine HCl (Phenergan) 12.5 mg IV Q6H PRN PRN PRN Reason: NAUSEA/VOMITING Last Admin: 11/06/17 03:57 Dose: 12.5 mg Promethazine HCl (Phenergan Tablet) 25 mg PO Q6H PRN PRN PRN Reason: NAUSEA Last Admin: 11/06/17 12:04 Dose: 25 mg Sodium Bicarbonate (Sodium Bicarbonate) 650 mg PO TuThSa@1000 [facility] Sodium Chloride () 5 - 30 ml IV UD PRN PRN Reason: SALINE FLUSH Last Admin: 11/06/17 03:50 Dose: 10 ml Vancomycin HCl (Vancomycin 125mg/5ml Susp) 125 mg PO Q6 [facility] Last Admin: 11/06/17 12:05 Dose: 125 mg Zolpidem Tartrate (Ambien (Generic)) 5 mg PO QHS PRN PRN PRN Reason: INSOMNIA - Past Medical History Past Medical History (Chronic Problems): Chronic Problems Decubitus ulcer, stage III (Chronic) CAD (coronary artery disease) (Chronic) Anemia, chronic disease (Chronic) Pilonidal cyst with abscess (Chronic) GABRIEL (obstructive sleep apnea) (Chronic) ESRD on dialysis (Chronic) Depression (Chronic) Anxiety (Chronic) HTN (hypertension) (Chronic) Nonischemic cardiomyopathy (Chronic) With ejection fraction 45 - 50%; with angiographically normal coronary arteries 05/2013; follows up with Dr. Magdaleno S/P repair of PDA (patent ductus arteriosus) (Chronic) At young age Diabetes mellitus type 1 (Chronic) Hyperlipidemia (Chronic) Obesity (BMI 30.0-34.9) (Chronic) Gastroparesis (Chronic) - Past Surgical History Surgical History: appendectomy, hysterectomy - and BSO, - - c-sections, L breast I+D for abscess, fistula placement LUE, L ankle surgery, appendectomy, PDA repair. Excision pilonidal cyst ulcer about 4 years ago. - Social History Smoking Status: Current every day smoker - Family History Maternal History Items: Cancer, COPD, Diabetes, Hypertension, Renal Disease, Stroke Paternal History Items: Diabetes Sibling History Items: Cancer, Diabetes Patient Problems: Active and Suspected Problems Pneumonia (Acute) ESRD (end stage renal disease) on dialysis (Acute) - Physical Exam General: Alert, Oriented x3 HEENT: Atraumatic Oral: Moist Mucosa Neck: Supple, No JVD Lungs: - - equal air entry. left lung is clear. right upper field crackles Cardiovascular: Regular rate, Regular Rhythm, Normal S1 Abdomen: Bowel Sounds Present, Soft, Non Tender Extremities: No clubbing, No cyanosis Skin: No rashes Lymphatic: No Cervical, Supraclavicular, or Inguinal Adenopathy Neurological: Cranial nerves II-XII grossly intact, Neuro grossly intact Vital Signs Temp Pulse Resp BP Pulse Ox 97.8 F 75 20 H 171/90 H 96 11/06/17 09:00 11/06/17 12:17 11/06/17 11:00 11/06/17 09:00 11/06/17 11:00 Oxygen Flow Rate (L/min) 3.5 Oxygen Delivery Method Nasal Cannula Weight: 87.7 kg Body Mass Index (BMI) 31.1 Intake and Output for Last 24 Hours 11/04/17 11/05/17 11/06/17 23:59 23:59 23:59 Intake Total 372 / 372 1196.5 / 1196.5 Balance 372 / 372 1196.5 / 1196.5 Microbiology Past 72 Hours 11/05/17 18:00 Streptococcus pneumoniae Antigen (M - Final Urine, Clean Catch 11/05/17 18:00 Legionella Antigen - Final Urine, Clean Catch 11/05/17 14:40 C. difficile DNA Amplification - Final Stool 11/05/17 13:20 Influenza Types A,B Direct FA ([facility]) - Final Mucosa - Nasopharyngeal Laboratory Tests Past 24 Hrs 11/05/17 11/06/17 11/06/17 22:00 05:05 05:05 WBC 6.8 RBC 2.46 L Hgb 8.2 L Hct 24.9 L MCV 101.2 H MCH 33.3 H MCHC 32.9 RDW 14.8 H RDW Differential 51.6 H Plt Count 134 L MPV 8.1 Sodium 139 Potassium 5.5 H Chloride 108 H Carbon Dioxide 23.0 Anion Gap 8 BUN 44 H Creatinine 6.01 H Estim Creat Clear Calc 11.30 Est GFR (MDRD) Af Amer 10 L Est GFR (MDRD) Non-Af 8 L BUN/Creatinine Ratio 7.3 L Glucose 161 H Calcium 8.0 L Random Vancomycin MRSA (PCR) Negative 11/06/17 05:05 WBC RBC Hgb Hct MCV MCH MCHC RDW RDW Differential Plt Count MPV Sodium Potassium Chloride Carbon Dioxide Anion Gap BUN Creatinine Estim Creat Clear Calc Est GFR (MDRD) Af Amer Est GFR (MDRD) Non-Af BUN/Creatinine Ratio Glucose Calcium Random Vancomycin 17.3 H MRSA (PCR) POC Glucose 11/06/17 11/06/17 11/05/17 11:56 06:53 21:46 POC Glucose 126 H 163 H 179 H Assessment/Plan Active and Suspected Problems Pneumonia (Acute) ESRD (end stage renal disease) on dialysis (Acute) 1- ESRD on MWF. HD session today: 2K. BQ 400 DQ 600 UF 2L HD AVF Next HD session 11/08 2- Pneumonia. on Abx as per the primary service Will continue to follow Maria Isabel Valdivia MD [phone]
[2017-11-06] MEDS: Azithromycin 250 MG Tablet 500 MG PO (14:32)
[2017-11-06] MEDS: Lidocaine/Prilocaine HCl 5 GM Tube 1 GM TOPICAL (14:36)
--- NOTE | 2017-11-06 17:00 | DIALYSIS ---
Hep B sab (positive 17) 07/31/2017 Result from [facility]. Copy of result placed in patient's chart. Report from Hospital RN: Concha Access: Left forearm AVF: site benign, thrill and bruit present, cannulated with % gauge needles x 2 without difficulty. Connections secure, saline line double clamped
--- NOTE | 2017-11-06 20:58 | DIALYSIS ---
Hemodialysis complete. 3.5 hour run, 2k bath. Net fluid removed = 2600 ml. Patient tolerated HD tx fairly well. Patient very cold last 45 minutes of tx. Patient warmed up post HD tx. Left forearm AVF: site benign, thrill and bruit present, needle site pressure held 10 minutes each. Hemostasis achieved. Repot given to Hospital RN: Anastasiia Washburn.
[2017-11-06] MEDS: Ceftriaxone 1 GM/50 ML BAG IV (22:58)
[2017-11-06 23:10] LABS: Bedside Glucose 165 mg/dL (70-110)
[2017-11-06 23:11] LABS: Bedside Glucose 201 mg/dL (70-110)
[2017-11-07] VITALS (18 sets, daily range): BP systolic 124–192; BP diastolic 62–81; PULSE 72–96; RESP 14–30; TEMP 36.4–37.3; O2SAT 92–97
[2017-11-07] MEDS: Heparin Injection 5,000 UNITS/ML Syringe 5000 UNITS SC ×3 (05:10→21:10)
[2017-11-07] MEDS: hydrALAZINE 25 MG Tablet PO ×3 (05:10→21:10)
[2017-11-07 06:35] LABS: Hematocrit 21.6 % (37-47); Hemoglobin 7.2 g/dl (12.0-15.0); Mean Corp Hgb Conc 33.3 g/gl (32-36); Mean Corpuscular Hgb 33.3 pg (27.0-32.0); Platelet Count 105 K/mm3 (150-450); RBC Distribution Width CV 15.1 % (11.6-14.6); RBC Distribution Width SD 55.3 fl (35.1-43.9); Red Blood Count 2.16 M/mm3 (4.2-5.4)
[2017-11-07] MEDS: Ipratropium/Albuterol Sulfate 3 ML AMPUL.NEB INHALATION ×5 (06:38→22:57)
[2017-11-07 06:44] LABS: Anion Gap 7 (5-15); BUN 18 mg/dL (7-18); Calcium,Total 7.7 mg/dL (8.5-10.1); Chloride 102 mmol/L (98-107); Creatinine, Serum 3.59 mg/dL (0.55-1.02); EST Glomerular Filtration Rate 15 mL/min (>60); Est Glom Filt Rate - Afr Amer 18 mL/min (>60); Estimated Creatinine Clearance 18.92 ml/min; Glucose 161 mg/dL (74-106); Sodium Level 139 mmol/L (136-145)
[2017-11-07 06:49] LABS: Scan Indicated on CBC? Y/N NO
[2017-11-07 06:56] LABS: Bedside Glucose 156 mg/dL (70-110)
[2017-11-07 07:24] LABS: Vancomycin, Random Level 10.2 ug/mL (0.0-15.0)
[2017-11-07] MEDS: Calcium Acetate 667 MG Capsule PO ×3 (08:54→16:21)
[2017-11-07] MEDS: Aspirin 81 MG TAB.CHEW PO (08:54)
[2017-11-07] MEDS: Lisinopril 20 MG Tablet PO (08:55)
[2017-11-07] MEDS: guaiFENesin 1,200 MG Tablet 1200 MG PO ×2 (08:55→21:24)
[2017-11-07] MEDS: proMETHazine 25 MG Tablet PO (08:55)
[2017-11-07] MEDS: FLUoxetine 20 MG Capsule 40 MG PO (08:55)
[2017-11-07] MEDS: Carvedilol 25 MG Tablet PO ×2 (08:55→21:11)
[2017-11-07] MEDS: Sodium Bicarbonate 650 MG Tablet PO (08:56)
[2017-11-07] MEDS: dilTIAZem CD 240 MG Capsule PO (08:56)
[2017-11-07] MEDS: Pantoprazole Sodium 20 MG Tablet PO (08:56)
--- NOTE | 2017-11-07 10:01 | PCM.PN.REN ---
Patient Problems: Active and Suspected Problems Pneumonia (Acute) ESRD (end stage renal disease) on dialysis (Acute) Subjective: Patient is feeling better. less SOB - Physical Exam General: Alert, Oriented x3 HEENT: Atraumatic Oral: Moist Mucosa Neck: Supple, No JVD, Negative Carotid Bruits Lungs: Normal air movement, No rhonchi Cardiovascular: Regular rate, Regular Rhythm, Normal S1, Normal S2 Abdomen: Bowel Sounds Present, Soft, Non Tender Extremities: No clubbing, No cyanosis, No edema Skin: No rashes Musculoskeletal: No Tenderness to Palpation of Joints or Extremities Lymphatic: No Cervical, Supraclavicular, or Inguinal Adenopathy Neurological: Cranial nerves II-XII grossly intact, Neuro grossly intact Psych/Mental Status: Normal Affect Vital Signs Temp Pulse Resp BP Pulse Ox 99.2 F H 88 30 H 140/70 H 92 11/07/17 09:18 11/07/17 09:18 11/07/17 09:18 11/07/17 09:18 11/07/17 09:18 Oxygen Flow Rate (L/min) 3 Oxygen Delivery Method Room Air Weight: 90.3 kg Body Mass Index (BMI) 31.1 Intake and Output for Last 24 Hours 11/05/17 11/06/17 11/07/17 23:59 23:59 23:59 Intake Total 372 / 372 1636.5 / 1636.5 240 / 240 Output Total 5200 / 5200 Balance 372 / 372 -3563.5 / -3563.5 240 / 240 Microbiology Past 72 Hours 11/05/17 18:00 Streptococcus pneumoniae Antigen (M - Final Urine, Clean Catch 11/05/17 18:00 Legionella Antigen - Final Urine, Clean Catch 11/05/17 14:40 C. difficile DNA Amplification - Final Stool 11/05/17 13:20 Influenza Types A,B Direct FA ([facility]) - Final Mucosa - Nasopharyngeal Laboratory Tests Past 24 Hrs 11/06/17 11/07/17 11/07/17 10:01 06:15 06:15 WBC 6.0 RBC 2.16 L Hgb 7.2 L Hct 21.6 L MCV 100.0 H MCH 33.3 H MCHC 33.3 RDW 15.1 H RDW Differential 55.3 H Plt Count 105 L MPV 8.0 Sodium 139 Potassium 4.0 Chloride 102 Carbon Dioxide 30.0 Anion Gap 7 BUN 18 Creatinine 3.59 H Estim Creat Clear Calc 18.92 Est GFR (MDRD) Af Amer 18 L Est GFR (MDRD) Non-Af 15 L BUN/Creatinine Ratio 5.0 L Glucose 161 H Calcium 7.7 L Random Vancomycin Mycoplasma pneumon IgG Pending Mycoplasma pneumon IgM Pending 11/07/17 06:15 WBC RBC Hgb Hct MCV MCH MCHC RDW RDW Differential Plt Count MPV Sodium Potassium Chloride Carbon Dioxide Anion Gap BUN Creatinine Estim Creat Clear Calc Est GFR (MDRD) Af Amer Est GFR (MDRD) Non-Af BUN/Creatinine Ratio Glucose Calcium Random Vancomycin 10.2 Mycoplasma pneumon IgG Mycoplasma pneumon IgM POC Glucose 11/07/17 11/06/17 11/06/17 06:52 22:50 21:44 POC Glucose 156 H 201 H 165 H 11/06/17 11:56 POC Glucose 126 H Medical Necessity - Tobacco Use Smoking Status: Current every day smoker Tobacco Use: Cigarettes Assessment/Plan Active and Suspected Problems Pneumonia (Acute) ESRD (end stage renal disease) on dialysis (Acute) 1- ESRD on MWF. Last HD session 11/06 with 5 L UF HD access is LUE AVF Next HD session 11/08 2- Pneumonia. on Abx as per the primary service Will continue to follow Maria Isabel Valdivia MD [phone]
--- NOTE | 2017-11-07 11:25 | PCM.PN.ID ---
Patient Problems: Active and Suspected Problems Pneumonia (Acute) ESRD (end stage renal disease) on dialysis (Acute) Subjective: Fever and chills last night, still some dry cough. - Physical Exam General: Alert, Cooperative Lungs: Diminished Cardiovascular: Regular rate, Regular Rhythm Abdomen: Soft, Non Tender, Non-Distended Skin: Ulcer/ Wound - sacral wound clean, no drainage Vital Signs Temp Pulse Resp BP Pulse Ox 97.6 F L 80 22 H 192/81 H 97 11/07/17 11:23 11/07/17 11:23 11/07/17 11:23 11/07/17 11:23 11/07/17 11:23 Oxygen Flow Rate (L/min) 93 Oxygen Delivery Method Room Air Weight: 90.3 kg Body Mass Index (BMI) 31.1 Intake and Output for Last 24 Hours 11/05/17 11/06/17 11/07/17 23:59 23:59 23:59 Intake Total 372 / 372 1636.5 / 1636.5 240 / 240 Output Total 5200 / 5200 Balance 372 / 372 -3563.5 / -3563.5 240 / 240 Microbiology Past 72 Hours 11/06/17 14:40 - Final Mucosa - Nose 11/05/17 18:00 Streptococcus pneumoniae Antigen (M - Final Urine, Clean Catch 11/05/17 18:00 Legionella Antigen - Final Urine, Clean Catch 11/05/17 14:40 C. difficile DNA Amplification - Final Stool 11/05/17 13:20 Influenza Types A,B Direct FA ([facility]) - Final Mucosa - Nasopharyngeal Laboratory Tests Past 24 Hrs 11/06/17 11/07/17 11/07/17 10:01 06:15 06:15 WBC 6.0 RBC 2.16 L Hgb 7.2 L Hct 21.6 L MCV 100.0 H MCH 33.3 H MCHC 33.3 RDW 15.1 H RDW Differential 55.3 H Plt Count 105 L MPV 8.0 Sodium 139 Potassium 4.0 Chloride 102 Carbon Dioxide 30.0 Anion Gap 7 BUN 18 Creatinine 3.59 H Estim Creat Clear Calc 18.92 Est GFR (MDRD) Af Amer 18 L Est GFR (MDRD) Non-Af 15 L BUN/Creatinine Ratio 5.0 L Glucose 161 H Calcium 7.7 L Random Vancomycin Mycoplasma pneumon IgG Pending Mycoplasma pneumon IgM Pending 11/07/17 06:15 WBC RBC Hgb Hct MCV MCH MCHC RDW RDW Differential Plt Count MPV Sodium Potassium Chloride Carbon Dioxide Anion Gap BUN Creatinine Estim Creat Clear Calc Est GFR (MDRD) Af Amer Est GFR (MDRD) Non-Af BUN/Creatinine Ratio Glucose Calcium Random Vancomycin 10.2 Mycoplasma pneumon IgG Mycoplasma pneumon IgM POC Glucose 11/07/17 11/06/17 11/06/17 06:52 22:50 21:44 POC Glucose 156 H 201 H 165 H 11/06/17 11:56 POC Glucose 126 H Medical Necessity - Tobacco Use Smoking Status: Current every day smoker Tobacco Use: Cigarettes Route of nutrition/ use of supplements: [] Nutritional Intake: [] IV Site: [] Meyer Catheter: [] - Assessment/Plan Antibiotics: [] Assessment/Plan: [] Active and Suspected Problems Pneumonia (Acute) CAP with h/o ESRD - Fever last night. Cxs and viral studies neg so far. Cont ceftriaxone/azithro. Cdiff - on po vanc, well controlled sacral wound - prior cx with VRE, yeast. No current inflammation or drainage. Will follow
[2017-11-07] MEDS: oxyCODONE 5 MG Tablet PO ×2 (11:39→18:22)
[2017-11-07 11:41] LABS: Bedside Glucose 203 mg/dL (70-110)
[2017-11-07] MEDS: Azithromycin 250 MG Tablet 500 MG PO (13:30)
--- NOTE | 2017-11-07 13:56 | PCM.PN.HOSP ---
Patient Problems: Active and Suspected Problems Pneumonia (Acute) ESRD (end stage renal disease) on dialysis (Acute) Subjective: breathing better. no further n/v. tolerated lunch. Vitals/I&O's: Vital Signs Temp Pulse Resp BP Pulse Ox 36.4 C L 76 22 H 124/65 H 97 11/07/17 11:00 11/07/17 13:28 11/07/17 11:00 11/07/17 13:28 11/07/17 11:00 Oxygen Flow Rate (L/min) 93 Oxygen Delivery Method Room Air Weight: 90.3 kg Body Mass Index (BMI) 31.1 Intake and Output for Last 24 Hours 11/05/17 11/06/17 11/07/17 23:59 23:59 23:59 Intake Total 372 / 372 1636.5 / 1636.5 960 / 960 Output Total 5200 / 5200 Balance 372 / 372 -3563.5 / -3563.5 960 / 960 General: Alert, Cooperative, No apparent distress HEENT: Atraumatic, Normocephalic Neck: No Nodes, Thyroid Normal Size and Texture Lungs: Clear to auscultation, Normal air movement, No rhonchi, No wheeze Cardiovascular: Regular rate, Regular Rhythm, Normal S1, Normal S2, No murmurs Abdomen: Bowel Sounds Present, Soft, Non Tender, Non-Distended, No Hepato-splenomegaly Extremities: No edema, No Calf Tenderness Psych/Mental Status: Normal Affect, Appropriate Microbiology Past 72 Hours 11/06/17 14:40 Mucosa - Nose - Final 11/05/17 18:00 Urine, Clean Catch Streptococcus pneumoniae Antigen (M - Final 11/05/17 18:00 Urine, Clean Catch Legionella Antigen - Final 11/05/17 14:40 Stool C. difficile DNA Amplification - Final 11/05/17 13:20 Mucosa - Nasopharyngeal Influenza Types A,B Direct FA ([facility]) - Final Laboratory Results 11/06/17 21:44: POC Glucose 165 H 11/06/17 22:50: POC Glucose 201 H 11/07/17 06:15: WBC 6.0, RBC 2.16 L, Hgb 7.2 L, Hct 21.6 L, MCV 100.0 H, MCH 33.3 H, MCHC 33.3, RDW 15.1 H, RDW Differential 55.3 H, Plt Count 105 L, MPV 8.0 11/07/17 06:15: Sodium 139, Potassium 4.0, Chloride 102, Carbon Dioxide 30.0, Anion Gap 7, BUN 18, Creatinine 3.59 H, Estim Creat Clear Calc 18.92, Est GFR (MDRD) Af Amer 18 L, Est GFR (MDRD) Non-Af 15 L, BUN/Creatinine Ratio 5.0 L, Glucose 161 H, Calcium 7.7 L 11/07/17 06:15: Random Vancomycin 10.2 11/07/17 06:52: POC Glucose 156 H 11/07/17 11:31: POC Glucose 203 H Current Medications Acetaminophen (Tylenol) 650 mg PO Q6H PRN PRN PRN Reason: Mild Pain (1-3)/Temp > 100.7 F Last Admin: 11/06/17 21:50 Dose: 650 mg Al Hydroxide/Mg Hydroxide (Mylanta Ii) 30 ml PO Q6H PRN PRN PRN Reason: Gastric burning Last Admin: 11/05/17 21:56 Dose: 30 ml Albuterol Sulfate (Ventolin Aerosols) 2.5 mg INHALATION Q2H PRN PRN PRN Reason: SHORTNESS OF BREATH Albuterol/Ipratropium (Duoneb) 3 ml INHALATION Q4H.RT [facility] Last Admin: 11/07/17 10:25 Dose: 3 ml Aspirin (Aspirin, Baby) 81 mg PO DAILY@0800 [facility] Last Admin: 11/07/17 08:54 Dose: 81 mg Azithromycin (Zithromax) 500 mg PO Q24H [facility] Last Admin: 11/07/17 13:30 Dose: 500 mg Bisacodyl (Dulcolax) 5 mg PO DAILY PRN PRN PRN Reason: Constipation Calcium Acetate (Phoslo Gel Cap) 667 mg PO TIDCM [facility] Last Admin: 11/07/17 11:39 Dose: 667 mg Carvedilol (Coreg) 25 mg PO BID [facility] Last Admin: 11/07/17 08:55 Dose: 25 mg Dextrose (D50w Syringe) 0 gm IV X1 PRN; Protocol PRN Reason: Hypoglycemia Diltiazem HCl (Cardizem Cd) 240 mg PO DAILY [facility] Last Admin: 11/07/17 08:56 Dose: 240 mg Ergocalciferol (Vitamin D) 50,000 unit PO Fr@1000 [facility] Fluoxetine HCl (Prozac) 40 mg PO DAILY [facility] Last Admin: 11/07/17 08:55 Dose: 40 mg Glucagon () 1 mg IM .X1 PRN PRN Reason: Hypoglycemia Guaifenesin (Mucinex) 1,200 mg PO BID [facility] Last Admin: 11/07/17 08:55 Dose: 1,200 mg Heparin Sodium (Porcine) () 5,000 units SC Q8 [facility] Last Admin: 11/07/17 13:30 Dose: 5,000 units Hydralazine HCl (Apresoline) 25 mg PO TID [facility] Last Admin: 11/07/17 13:28 Dose: 25 mg Ceftriaxone Sodium (Rocephin) 1 gm in 50 mls @ 100 mls/hr IV Q24H [facility] Last Admin: 11/06/17 22:58 Dose: 100 mls/hr Insulin Aspart (Novolog Flexpen (Bkc)) 8 units SC TIDCM [facility] Last Admin: 11/07/17 11:33 Dose: 8 units Insulin Aspart (Novolog Flexpen (Bkc)) 0 units SC ACHS [facility] PRN Reason: Protocol Last Admin: 11/07/17 11:34 Dose: 2 units Lisinopril (Zestril) 20 mg PO DAILY [facility] Last Admin: 11/07/17 08:55 Dose: 20 mg Magnesium Hydroxide (Milk Of Magnesia) 30 ml PO DAILY PRN PRN Reason: Constipation Nutritional Formula (Lactose Free) (Glucerna Shake) 120 ml PO TIDCM [facility] Last Admin: 11/07/17 11:34 Dose: Not Given Ondansetron HCl (Zofran) 4 mg IV Q8H PRN PRN PRN Reason: NAUSEA Last Admin: 11/06/17 06:51 Dose: 4 mg Oxycodone HCl (Oxyir) 5 - 10 mg PO Q4H PRN PRN PRN Reason: MOD-SEVERE PAIN (4-10/10) Last Admin: 11/07/17 11:39 Dose: 10 mg Pantoprazole Sodium (Protonix) 20 mg PO DAILY [facility] Last Admin: 11/07/17 08:56 Dose: 20 mg Promethazine HCl (Phenergan) 12.5 mg IV Q6H PRN PRN PRN Reason: NAUSEA/VOMITING Last Admin: 11/06/17 03:57 Dose: 12.5 mg Promethazine HCl (Phenergan Tablet) 25 mg PO Q6H PRN PRN PRN Reason: NAUSEA Last Admin: 11/07/17 08:55 Dose: 25 mg Sodium Bicarbonate (Sodium Bicarbonate) 650 mg PO TuThSa@1000 [facility] Last Admin: 11/07/17 08:56 Dose: 650 mg Sodium Chloride () 5 - 30 ml IV UD PRN PRN Reason: SALINE FLUSH Last Admin: 11/06/17 22:39 Dose: 10 ml Vancomycin HCl (Vancomycin 125mg/5ml Susp) 125 mg PO Q6 [facility] Last Admin: 11/07/17 11:39 Dose: 125 mg Zolpidem Tartrate (Ambien (Generic)) 5 mg PO QHS PRN PRN PRN Reason: INSOMNIA Medical Necessity - Tobacco Use Smoking Status: Current every day smoker Tobacco Use: Cigarettes Assessment/Plan Active and Suspected Problems Pneumonia (Acute) ESRD (end stage renal disease) on dialysis (Acute) 1. Suspected gram-negative pneumonia Patient at risk for hospital-acquired pneumonia given her recent discharged on the fifth and also being a dialysis patient Seen by ID and changed to azithromycin and ctx Pulmonary toilet ID on consult 2. Intractable nausea and vomiting. exam unremarkable known gastroparesis cw PPI and antiemetics improved 3. ESRD on HD nephrology on consult next HD 11/08 4. recent Cdiff cdiff tox negative here continue with vancomycin through 11/09 (original stop date) 5. DVT proph: LMWH 6. Disposition: fever last night. plan is to watch overnight and if stable or improved, then to discharge. Code Visit Inpatient E&M: 64754 Subs Hosp L2
--- NOTE | 2017-11-07 13:59 | PN_ITS ---
Patient Problems: Active and Suspected Problems Pneumonia (Acute) ESRD (end stage renal disease) on dialysis (Acute) Subjective: breathing better. no further n/v. tolerated lunch. Vitals/I&O's: Vital Signs Temp Pulse Resp BP Pulse Ox 36.4 C L 76 22 H 124/65 H 97 11/07/17 11:00 11/07/17 13:28 11/07/17 11:00 11/07/17 13:28 11/07/17 11:00 Oxygen Flow Rate (L/min) 93 Oxygen Delivery Method Room Air Weight: 90.3 kg Body Mass Index (BMI) 31.1 Intake and Output for Last 24 Hours 11/05/17 11/06/17 11/07/17 23:59 23:59 23:59 Intake Total 372 / 372 1636.5 / 1636.5 960 / 960 Output Total 5200 / 5200 Balance 372 / 372 -3563.5 / -3563.5 960 / 960 General: Alert, Cooperative, No apparent distress HEENT: Atraumatic, Normocephalic Neck: No Nodes, Thyroid Normal Size and Texture Lungs: Clear to auscultation, Normal air movement, No rhonchi, No wheeze Cardiovascular: Regular rate, Regular Rhythm, Normal S1, Normal S2, No murmurs Abdomen: Bowel Sounds Present, Soft, Non Tender, Non-Distended, No Hepato- splenomegaly Extremities: No edema, No Calf Tenderness Psych/Mental Status: Normal Affect, Appropriate Microbiology Past 72 Hours 11/06/17 14:40 Mucosa - Nose - Final 11/05/17 18:00 Urine, Clean Catch Streptococcus pneumoniae Antigen (M - Final 11/05/17 18:00 Urine, Clean Catch Legionella Antigen - Final 11/05/17 14:40 Stool C. difficile DNA Amplification - Final 11/05/17 13:20 Mucosa - Nasopharyngeal Influenza Types A,B Direct FA (SCARLET) - Final Laboratory Results 11/06/17 21:44: POC Glucose 165 H 11/06/17 22:50: POC Glucose 201 H 11/07/17 06:15: WBC 6.0, RBC 2.16 L, Hgb 7.2 L, Hct 21.6 L, MCV 100.0 H, MCH 33.3 H, MCHC 33.3, RDW 15.1 H, RDW Differential 55.3 H, Plt Count 105 L, MPV 8.0 11/07/17 06:15: Sodium 139, Potassium 4.0, Chloride 102, Carbon Dioxide 30.0, Anion Gap 7, BUN 18, Creatinine 3.59 H, Estim Creat Clear Calc 18.92, Est GFR ( MDRD) Af Amer 18 L, Est GFR (MDRD) Non-Af 15 L, BUN/Creatinine Ratio 5.0 L, Glucose 161 H, Calcium 7.7 L 11/07/17 06:15: Random Vancomycin 10.2 11/07/17 06:52: POC Glucose 156 H 11/07/17 11:31: POC Glucose 203 H Current Medications Acetaminophen (Tylenol) 650 mg PO Q6H PRN PRN PRN Reason: Mild Pain (1-3)/Temp > 100.7 F Last Admin: 11/06/17 21:50 Dose: 650 mg Al Hydroxide/Mg Hydroxide (Mylanta Ii) 30 ml PO Q6H PRN PRN PRN Reason: Gastric burning Last Admin: 11/05/17 21:56 Dose: 30 ml Albuterol Sulfate (Ventolin Aerosols) 2.5 mg INHALATION Q2H PRN PRN PRN Reason: SHORTNESS OF BREATH Albuterol/Ipratropium (Duoneb) 3 ml INHALATION Q4H.RT [facility] Last Admin: 11/07/17 10:25 Dose: 3 ml Aspirin (Aspirin, Baby) 81 mg PO DAILY@0800 [facility] Last Admin: 11/07/17 08:54 Dose: 81 mg Azithromycin (Zithromax) 500 mg PO Q24H [facility] Last Admin: 11/07/17 13:30 Dose: 500 mg Bisacodyl (Dulcolax) 5 mg PO DAILY PRN PRN PRN Reason: Constipation Calcium Acetate (Phoslo Gel Cap) 667 mg PO TIDCM [facility] Last Admin: 11/07/17 11:39 Dose: 667 mg Carvedilol (Coreg) 25 mg PO BID [facility] Last Admin: 11/07/17 08:55 Dose: 25 mg Dextrose (D50w Syringe) 0 gm IV X1 PRN; Protocol PRN Reason: Hypoglycemia Diltiazem HCl (Cardizem Cd) 240 mg PO DAILY [facility] Last Admin: 11/07/17 08:56 Dose: 240 mg Ergocalciferol (Vitamin D) 50,000 unit PO Fr@1000 [facility] Fluoxetine HCl (Prozac) 40 mg PO DAILY [facility] Last Admin: 11/07/17 08:55 Dose: 40 mg Glucagon () 1 mg IM .X1 PRN PRN Reason: Hypoglycemia Guaifenesin (Mucinex) 1,200 mg PO BID [facility] Last Admin: 11/07/17 08:55 Dose: 1,200 mg Heparin Sodium (Porcine) () 5,000 units SC Q8 [facility] Last Admin: 11/07/17 13:30 Dose: 5,000 units Hydralazine HCl (Apresoline) 25 mg PO TID [facility] Last Admin: 11/07/17 13:28 Dose: 25 mg Ceftriaxone Sodium (Rocephin) 1 gm in 50 mls @ 100 mls/hr IV Q24H [facility] Last Admin: 11/06/17 22:58 Dose: 100 mls/hr Insulin Aspart (Novolog Flexpen (Bkc)) 8 units SC TIDCM [facility] Last Admin: 11/07/17 11:33 Dose: 8 units Insulin Aspart (Novolog Flexpen (Bkc)) 0 units SC ACHS [facility] PRN Reason: Protocol Last Admin: 11/07/17 11:34 Dose: 2 units Lisinopril (Zestril) 20 mg PO DAILY [facility] Last Admin: 11/07/17 08:55 Dose: 20 mg Magnesium Hydroxide (Milk Of Magnesia) 30 ml PO DAILY PRN PRN Reason: Constipation Nutritional Formula (Lactose Free) (Glucerna Shake) 120 ml PO TIDCM [facility] Last Admin: 11/07/17 11:34 Dose: Not Given Ondansetron HCl (Zofran) 4 mg IV Q8H PRN PRN PRN Reason: NAUSEA Last Admin: 11/06/17 06:51 Dose: 4 mg Oxycodone HCl (Oxyir) 5 - 10 mg PO Q4H PRN PRN PRN Reason: MOD-SEVERE PAIN (4-10/10) Last Admin: 11/07/17 11:39 Dose: 10 mg Pantoprazole Sodium (Protonix) 20 mg PO DAILY [facility] Last Admin: 11/07/17 08:56 Dose: 20 mg Promethazine HCl (Phenergan) 12.5 mg IV Q6H PRN PRN PRN Reason: NAUSEA/VOMITING Last Admin: 11/06/17 03:57 Dose: 12.5 mg Promethazine HCl (Phenergan Tablet) 25 mg PO Q6H PRN PRN PRN Reason: NAUSEA Last Admin: 11/07/17 08:55 Dose: 25 mg Sodium Bicarbonate (Sodium Bicarbonate) 650 mg PO TuThSa@1000 [facility] Last Admin: 11/07/17 08:56 Dose: 650 mg Sodium Chloride () 5 - 30 ml IV UD PRN PRN Reason: SALINE FLUSH Last Admin: 11/06/17 22:39 Dose: 10 ml Vancomycin HCl (Vancomycin 125mg/5ml Susp) 125 mg PO Q6 [facility] Last Admin: 11/07/17 11:39 Dose: 125 mg Zolpidem Tartrate (Ambien (Generic)) 5 mg PO QHS PRN PRN PRN Reason: INSOMNIA Medical Necessity - Tobacco Use Smoking Status: Current every day smoker Tobacco Use: Cigarettes Assessment/Plan Active and Suspected Problems Pneumonia (Acute) ESRD (end stage renal disease) on dialysis (Acute) 1. Suspected gram-negative pneumonia * Patient at risk for hospital-acquired pneumonia given her recent discharged on the fifth and also being a dialysis patient * Seen by ID and changed to azithromycin and ctx * Pulmonary toilet * ID on consult 2. Intractable nausea and vomiting. * exam unremarkable * known gastroparesis * cw PPI and antiemetics * improved 3. ESRD * on HD * nephrology on consult * next HD 11/08 4. recent Cdiff * cdiff tox negative here * continue with vancomycin through 11/09 (original stop date) 5. DVT proph: * LMWH 6. Disposition: fever last night. plan is to watch overnight and if stable or improved, then to discharge. Code Visit Inpatient E&M: 95593 Subs Hosp L2
[2017-11-07 16:15] LABS: Bedside Glucose 229 mg/dL (70-110)
[2017-11-07] MEDS: Ondansetron 4 MG/2 ML Vial IV (18:22)
[2017-11-07] MEDS: Ceftriaxone 1 GM/50 ML BAG IV (18:22)
[2017-11-07] MEDS: 0.9% NaCl Peripheral Flush Adult/Peds IV ×2 (18:23→21:24)
[2017-11-07 21:40] LABS: Bedside Glucose 225 mg/dL (70-110)
--- NOTE | 2017-11-07 23:35 | CPS ---
Pt refuses PAP at this time.
[2017-11-08] VITALS (11 sets, daily range): BP systolic 105–141; BP diastolic 49–76; PULSE 73–95; RESP 16–18; TEMP 36.4–36.9; O2SAT 92–95
[2017-11-08] MEDS: oxyCODONE 5 MG Tablet PO ×2 (00:16→12:44)
[2017-11-08] MEDS: Acetaminophen 325 MG Tablet 650 MG PO (02:31)
[2017-11-08] MEDS: Ipratropium/Albuterol Sulfate 3 ML AMPUL.NEB INHALATION ×3 (03:57→10:32)
[2017-11-08 05:32] LABS: Hematocrit 22.1 % (37-47); Hemoglobin 7.1 g/dl (12.0-15.0); Mean Corp Hgb Conc 32.1 g/gl (32-36); Mean Corpuscular Hgb 33.3 pg (27.0-32.0); Mean Corpuscular Volume 103.8 fL (81-99); Platelet Count 132 K/mm3 (150-450); RBC Distribution Width SD 52.9 fl (35.1-43.9); Red Blood Count 2.13 M/mm3 (4.2-5.4); White Blood Count 6.2 K/mm3 (4.4-11.0)
[2017-11-08 05:33] LABS: Scan Indicated on CBC? Y/N NO
[2017-11-08 05:53] LABS: Anion Gap 9 (5-15); BUN 30 mg/dL (7-18); BUN/Creat Ratio 5.8 RATIO (10-20); Calcium,Total 8.3 mg/dL (8.5-10.1); Chloride 101 mmol/L (98-107); Creatinine, Serum 5.16 mg/dL (0.55-1.02); EST Glomerular Filtration Rate 10 mL/min (>60); Est Glom Filt Rate - Afr Amer 12 mL/min (>60); Estimated Creatinine Clearance 13.16 ml/min; Glucose 146 mg/dL (74-106); Potassium 4.5 mmol/L (3.5-5.1); Sodium Level 138 mmol/L (136-145)
[2017-11-08] MEDS: Heparin Injection 5,000 UNITS/ML Syringe 5000 UNITS SC (06:41)
[2017-11-08] MEDS: hydrALAZINE 25 MG Tablet PO ×2 (06:41→14:01)
[2017-11-08 07:01] LABS: Bedside Glucose 132 mg/dL (70-110)
--- NOTE | 2017-11-08 11:22 | PCM.PN.REN ---
Patient Problems: Active and Suspected Problems Pneumonia (Acute) ESRD (end stage renal disease) on dialysis (Acute) Subjective: Patient seen during HD session No complaints. she is tolerating the session well - Physical Exam General: Alert, Oriented x3 HEENT: Atraumatic Oral: Moist Mucosa Neck: Supple, No JVD Lungs: Clear to auscultation Cardiovascular: Regular rate, Regular Rhythm, Normal S1, Normal S2 Abdomen: Bowel Sounds Present, Soft, Non Tender Extremities: No clubbing, No edema Musculoskeletal: No Tenderness to Palpation of Joints or Extremities Lymphatic: No Cervical, Supraclavicular, or Inguinal Adenopathy Neurological: Cranial nerves II-XII grossly intact, Neuro grossly intact Psych/Mental Status: Normal Affect Vital Signs Temp Pulse Resp BP Pulse Ox 97.5 F L 95 18 105/49 L 95 11/08/17 08:45 11/08/17 08:45 11/08/17 08:45 11/08/17 08:45 11/08/17 08:45 Oxygen Flow Rate (L/min) 93 Oxygen Delivery Method Room Air Weight: 88.9 kg Body Mass Index (BMI) 31.1 Intake and Output for Last 24 Hours 11/06/17 11/07/17 11/08/17 23:59 23:59 23:59 Intake Total 1636.5 / 1636.5 1635 / 1635 340 / 340 Output Total 5200 / 5200 Balance -3563.5 / -3563.5 1635 / 1635 340 / 340 Microbiology Past 72 Hours 11/06/17 14:40 - Final Mucosa - Nose 11/05/17 18:00 Streptococcus pneumoniae Antigen (M - Final Urine, Clean Catch 11/05/17 18:00 Legionella Antigen - Final Urine, Clean Catch 11/05/17 14:40 C. difficile DNA Amplification - Final Stool 11/05/17 13:20 Influenza Types A,B Direct FA ([facility]) - Final Mucosa - Nasopharyngeal Laboratory Tests Past 24 Hrs 11/08/17 11/08/17 05:10 05:10 WBC 6.2 RBC 2.13 L Hgb 7.1 L Hct 22.1 L MCV 103.8 H MCH 33.3 H MCHC 32.1 RDW 15.0 H RDW Differential 52.9 H Plt Count 132 L MPV 8.0 Sodium 138 Potassium 4.5 Chloride 101 Carbon Dioxide 28.0 Anion Gap 9 BUN 30 H Creatinine 5.16 H Estim Creat Clear Calc 13.16 Est GFR (MDRD) Af Amer 12 L Est GFR (MDRD) Non-Af 10 L BUN/Creatinine Ratio 5.8 L Glucose 146 H Calcium 8.3 L POC Glucose 11/08/17 11/07/17 11/07/17 06:44 21:09 16:07 POC Glucose 132 H 225 H 229 H 11/07/17 11:31 POC Glucose 203 H Medical Necessity - Tobacco Use Smoking Status: Current every day smoker Tobacco Use: Cigarettes Assessment/Plan Active and Suspected Problems Pneumonia (Acute) ESRD (end stage renal disease) on dialysis (Acute) 1- ESRD on MWF. HD session today: BQ 400, DQ 600 UF 2L HD access is LUE AVF Next HD session 2- Pneumonia. on Abx as per the primary service. 3- Anemia: Hgb 7.1 Will give one dose of Epo 10,000 U Will continue to follow Maria Isabel Valdivia MD [phone]
[2017-11-08 11:31] LABS: Bedside Glucose 103 mg/dL (70-110)
--- NOTE | 2017-11-08 12:23 | PCM.PN.ID ---
Patient Problems: Active and Suspected Problems Pneumonia (Acute) ESRD (end stage renal disease) on dialysis (Acute) Subjective: Feeling better, cough/SOB improved, no fever - Physical Exam General: Alert, Cooperative Lungs: Clear to auscultation Cardiovascular: Regular rate, Regular Rhythm Abdomen: Soft, Non Tender, Non-Distended Skin: No rashes Vital Signs Temp Pulse Resp BP Pulse Ox 97.5 F L 76 16 105/49 L 95 11/08/17 08:45 11/08/17 11:02 11/08/17 10:32 11/08/17 08:45 11/08/17 08:45 Oxygen Flow Rate (L/min) 93 Oxygen Delivery Method Room Air Weight: 88.9 kg Body Mass Index (BMI) 31.1 Intake and Output for Last 24 Hours 11/06/17 11/07/17 11/08/17 23:59 23:59 23:59 Intake Total 1636.5 / 1636.5 1635 / 1635 340 / 340 Output Total 5200 / 5200 Balance -3563.5 / -3563.5 1635 / 1635 340 / 340 Microbiology Past 72 Hours 11/06/17 14:40 - Final Mucosa - Nose 11/05/17 18:00 Streptococcus pneumoniae Antigen (M - Final Urine, Clean Catch 11/05/17 18:00 Legionella Antigen - Final Urine, Clean Catch 11/05/17 14:40 C. difficile DNA Amplification - Final Stool 11/05/17 13:20 Influenza Types A,B Direct FA (SCARLET) - Final Mucosa - Nasopharyngeal Laboratory Tests Past 24 Hrs 11/08/17 11/08/17 05:10 05:10 WBC 6.2 RBC 2.13 L Hgb 7.1 L Hct 22.1 L MCV 103.8 H MCH 33.3 H MCHC 32.1 RDW 15.0 H RDW Differential 52.9 H Plt Count 132 L MPV 8.0 Sodium 138 Potassium 4.5 Chloride 101 Carbon Dioxide 28.0 Anion Gap 9 BUN 30 H Creatinine 5.16 H Estim Creat Clear Calc 13.16 Est GFR (MDRD) Af Amer 12 L Est GFR (MDRD) Non-Af 10 L BUN/Creatinine Ratio 5.8 L Glucose 146 H Calcium 8.3 L POC Glucose 11/08/17 11/08/17 11/07/17 11:18 06:44 21:09 POC Glucose 103 132 H 225 H 11/07/17 16:07 POC Glucose 229 H Medical Necessity - Tobacco Use Smoking Status: Current every day smoker Tobacco Use: Cigarettes Route of nutrition/ use of supplements: [] Nutritional Intake: [] IV Site: [] Meyer Catheter: [] - Assessment/Plan Antibiotics: [] Assessment/Plan: [] Active and Suspected Problems Pneumonia (Acute) CAP with h/o ESRD -Afebrile. Cxs and viral studies neg so far. Cont ceftriaxone/azithro. Overall much improved today. Completed 3 days of abx so far. Plan will be for po azithro to stop 11/10/16, and at discharge for ceftriaxone to change to omnicef 300mg q48h, stop date 11/12/17. Cdiff - on po vanc, well controlled sacral wound - prior cx with VRE, yeast. No current inflammation or drainage. Will follow
--- NOTE | 2017-11-08 13:13 | DIALYSIS ---
HD X 3.5 HRS ON A 2K BATH. UF -2000ML. EPOGEN 10,000 UNIT IV GIVEN FOR HGB 7.1. PT [facility]. [facility] AT [facility]. DSG AT SITES
--- NOTE | 2017-11-08 13:14 | PCM.DC ---
- Discharge Diagnoses Current Active Problems: Current Active and Chronic Problems Pneumonia (Acute) ESRD (end stage renal disease) on dialysis (Acute) You will use the following diet at home:: Cardiac Your food should be the consistency of: Regular Your liquids should be the consistency of: Regular/Thin Discharge Activity: Return to Normal Activity Call your doctor if you observe: Fever of 101 or Higher, Shortness of breath, Chest pain Allergies/Adverse Reactions: Allergies latex Allergy (Verified 11/05/17 08:34) Rash levofloxacin [From Levaquin] Adverse Reaction (Verified 11/05/17 08:34) PT CAN'T REMEMBER PT CAN'T REMEMBER metoclopramide HCl [From Reglan] Adverse Reaction (Verified 11/05/17 08:34) Nausea NSAIDS (Non-Steroidal Anti-Inflamma Adverse Reaction (Verified 11/05/17 08:34) kidney function oxycodone HCl [From Percocet] Adverse Reaction (Verified 11/05/17 08:34) HALLUCINATIONS Medications to take at Discharge Diltiazem HCl [Tiazac] 240 mg PO DAILY 07/10/15 Aspirin [Aspirin, Baby] 81 mg PO DAILY@0800 01/26/16 Calcium Acetate [Phoslo Gel Cap] 667 mg PO TIDCM 01/26/16 Ergocalciferol [Vitamin D] 50,000 unit PO FR 01/26/16 Insulin Aspart [Novolog Flexpen] 8 units SC TIDCM 01/26/16 Insulin Glargine,Hum.rec.anlog [Lantus] 5 unit SQ QHS 01/09/17 proMETHazine tablet [Phenergan tablet] 25 mg PO Q6H PRN PRN #10 tablet 03/06/17 Lisinopril 20 mg PO DAILY 03/29/17 Omeprazole Magnesium [Prilosec Otc] 20 mg PO DAILY 03/29/17 Sodium Bicarbonate 650 mg PO TUTHSA 03/29/17 Acetaminophen [Tylenol Tablet] 650 mg PO Q6H PRN PRN tablet 03/31/17 Carvedilol [Coreg (Beta Chang)] 25 mg PO BID 06/17/17 Fluoxetine HCl 40 mg PO DAILY 09/02/17 Vancomycin [Vancocin] 125 mg PO Q6H 11/05/17 hydrALAZINE [Apresoline] 25 mg PO TID 04/15/18 Azithromycin [Zithromax] 500 mg PO Q24H #3 tab 11/08/17 Cefdinir 300 mg PO QODAY #3 cap 11/08/17 The following prescriptions were given: Azithromycin [Zithromax] 500 mg PO Q24H #3 tab Cefdinir 300 mg PO QODAY #3 cap Primary Care Physician: Christopher Foy MD [Primary Care Provider] - Within 2 Weeks [facility] M[facility] Proposed Discharge Date: 11/08/17
--- NOTE | 2017-11-08 13:15 | PCM.DC.SUM ---
Discharge Date and Diagnosis - Problem List Patient Problems: Active and Suspected Problems Pneumonia (Acute) ESRD (end stage renal disease) on dialysis (Acute) Date of Admission: 11/05/17 Date of Discharge: 11/08/17 - Primary Discharge Diagnosis Active and Suspected Problems Pneumonia (Acute) ESRD (end stage renal disease) on dialysis (Acute) - Secondary Discharge Diagnosis Chronic Problems Decubitus ulcer, stage III (Chronic) CAD (coronary artery disease) (Chronic) Anemia, chronic disease (Chronic) Pilonidal cyst with abscess (Chronic) GABRIEL (obstructive sleep apnea) (Chronic) ESRD on dialysis (Chronic) Depression (Chronic) Anxiety (Chronic) HTN (hypertension) (Chronic) Nonischemic cardiomyopathy (Chronic) With ejection fraction 45 - 50%; with angiographically normal coronary arteries 05/2013; follows up with Dr. Magdaleno S/P repair of PDA (patent ductus arteriosus) (Chronic) At young age Diabetes mellitus type 1 (Chronic) Hyperlipidemia (Chronic) Obesity (BMI 30.0-34.9) (Chronic) Gastroparesis (Chronic) Hospital Course and Treatment Imaging Results: Clinical Impression(s) from Imaging Studies Chest X-Ray 11/05/17 08:50 IMPRESSION: Compared to 31 October 2017 there is increased interstitial markings with right upper lobe lateral patchy airspace disease concerning for infectious infiltrate in the appropriate clinical setting. Underlying cardiogenic edema/alveolar disease is not excluded. Recommend repeat evaluation after appropriate treatment. Electronically Signed: Ariel Salas DO at 9:10 EDT , Service support , Consultations 11/05/17 16:08 Consult: Onc/Wound/outboard motor inspector Routine Comment: [place]. [place]. Operations: None, - Procedures: None Summary of Care Provided: The patient is a 41 year old F is with shortness of breath. Had a chest x-ray that showed increased interstitial markings with in the right upper lobe concerning for pneumonia which was a change from the . Patient was started on gram-negative coverage with vancomycin and Zosyn. Patient was seen in consultation by infectious disease to change patient over to ceftriaxone and azithromycin. Patient steadily improved during the course of her hospitalization and is now ready for discharge. Patient will be discharged with Omnicef plus oral azithromycin. While she was here patient did receive 2 rounds of hemodialysis but has remained stable. 1. Suspected gram-negative pneumonia Patient at risk for hospital-acquired pneumonia given her recent discharged on the fifth and also being a dialysis patient Seen by ID and changed to azithromycin and ctx Pulmonary toilet ID on consult Omnicef through 11/12, azithromycin through 11/10 2. Intractable nausea and vomiting. exam unremarkable known gastroparesis cw PPI and antiemetics improved 3. ESRD on HD nephrology on consult next HD 11/08 4. recent Cdiff cdiff tox negative here continue with vancomycin through 11/09 (original stop date) [] Physical exam Vital Signs Height 1.68 m Weight: 88.9 kg Weight in Pounds 196.0 lbs Pulse Ox 95 Temperature 36.4 C Pulse Rate 76 Respiratory Rate 16 Blood Pressure 105/49 Blood Pressure Position Semi-Fowlers Agent is seen on dialysis. No acute distress. No respiratory distress. No conversational dyspnea. Heart is regular rate and rhythm plus S1-S2 without any murmurs gallops or rubs. Lungs are clear to auscultation bilaterally. Discharge Diet: Low fat/ Low Cholesterol Discharge Activity: Return to Normal Activity Call your doctor if you observe: Fever of 101 or Higher, Shortness of breath, Chest pain Home Medications: Medications to take at Discharge Diltiazem HCl [Tiazac] 240 mg PO DAILY 07/10/15 Aspirin [Aspirin, Baby] 81 mg PO DAILY@0800 01/26/16 Calcium Acetate [Phoslo Gel Cap] 667 mg PO TIDCM 01/26/16 Ergocalciferol [Vitamin D] 50,000 unit PO FR 01/26/16 Insulin Aspart [Novolog Flexpen] 8 units SC TIDCM 01/26/16 Insulin Glargine,Hum.rec.anlog [Lantus] 5 unit SQ QHS 01/09/17 proMETHazine tablet [Phenergan tablet] 25 mg PO Q6H PRN PRN #10 tablet 03/06/17 Lisinopril 20 mg PO DAILY 03/29/17 Omeprazole Magnesium [Prilosec Otc] 20 mg PO DAILY 03/29/17 Sodium Bicarbonate 650 mg PO TUTHSA 03/29/17 Acetaminophen [Tylenol Tablet] 650 mg PO Q6H PRN PRN tablet 03/31/17 Carvedilol [Coreg (Beta Chang)] 25 mg PO BID 06/17/17 Fluoxetine HCl 40 mg PO DAILY 09/02/17 Vancomycin [Vancocin] 125 mg PO Q6H 11/05/17 hydrALAZINE [Apresoline] 25 mg PO TID 11/05/17 Azithromycin [Zithromax] 500 mg PO Q24H #3 tab 11/08/17 Cefdinir 300 mg PO QODAY #3 cap 11/08/17 Following Prescrptions Were Given to Patient: Azithromycin [Zithromax] 500 mg PO Q24H #3 tab Cefdinir 300 mg PO QODAY #3 cap Primary Care Physician: Christopher Foy MD [Primary Care Provider] - Within 2 Weeks Please [facility]: [facility] MWF Disposition: Home Minutes spent on discharge:: 32 Patient Condition:: Good Medical Necessity - Tobacco Use Smoking Status: Current every day smoker Tobacco Use: Cigarettes Meaningful Use Info Meaningful Use Diagnoses (Choose all that apply): None applicable Code Visit Inpatient E&M: 49628 Disch Hosp
--- NOTE | 2017-11-08 13:19 | DS.PCM_ITS ---
Discharge Date and Diagnosis - Problem List Patient Problems: Active and Suspected Problems Pneumonia (Acute) ESRD (end stage renal disease) on dialysis (Acute) Date of Admission: 11/05/17 Date of Discharge: 11/08/17 - Primary Discharge Diagnosis Active and Suspected Problems Pneumonia (Acute) ESRD (end stage renal disease) on dialysis (Acute) - Secondary Discharge Diagnosis Chronic Problems Decubitus ulcer, stage III (Chronic) CAD (coronary artery disease) (Chronic) Anemia, chronic disease (Chronic) Pilonidal cyst with abscess (Chronic) GABRIEL (obstructive sleep apnea) (Chronic) ESRD on dialysis (Chronic) Depression (Chronic) Anxiety (Chronic) HTN (hypertension) (Chronic) Nonischemic cardiomyopathy (Chronic) With ejection fraction 45 - 50%; with angiographically normal coronary arteries 05/2013; follows up with Dr. Magdaleno S/P repair of PDA (patent ductus arteriosus) (Chronic) At young age Diabetes mellitus type 1 (Chronic) Hyperlipidemia (Chronic) Obesity (BMI 30.0-34.9) (Chronic) Gastroparesis (Chronic) Hospital Course and Treatment Imaging Results: Clinical Impression(s) from Imaging Studies Chest X-Ray 11/05/17 08:50 IMPRESSION: Compared to 31 October 2017 there is increased interstitial markings with right upper lobe lateral patchy airspace disease concerning for infectious infiltrate in the appropriate clinical setting. Underlying cardiogenic edema/alveolar disease is not excluded. Recommend repeat evaluation after appropriate treatment. Electronically Signed: Ariel Salas DO at 9:10 EDT , Service support , Consultations 11/05/17 16:08 Consult: Onc/Wound/principal secretary Routine Comment: [place]. [place]. Operations: None, - Procedures: None Summary of Care Provided: The patient is a 41 year old F is with shortness of breath. Had a chest x-ray that showed increased interstitial markings with in the right upper lobe concerning for pneumonia which was a change from the . Patient was started on gram-negative coverage with vancomycin and Zosyn. Patient was seen in consultation by infectious disease to change patient over to ceftriaxone and azithromycin. Patient steadily improved during the course of her hospitalization and is now ready for discharge. Patient will be discharged with Omnicef plus oral azithromycin. While she was here patient did receive 2 rounds of hemodialysis but has remained stable. 1. Suspected gram-negative pneumonia * Patient at risk for hospital-acquired pneumonia given her recent discharged on the fifth and also being a dialysis patient * Seen by ID and changed to azithromycin and ctx * Pulmonary toilet * ID on consult * Omnicef through 11/12, azithromycin through 11/10 2. Intractable nausea and vomiting. * exam unremarkable * known gastroparesis * cw PPI and antiemetics * improved 3. ESRD * on HD * nephrology on consult * next HD 11/08 4. recent Cdiff * cdiff tox negative here * continue with vancomycin through 11/09 (original stop date) [] Physical exam Vital Signs Height 1.68 m Weight: 88.9 kg Weight in Pounds 196.0 lbs Pulse Ox 95 Temperature 36.4 C Pulse Rate 76 Respiratory Rate 16 Blood Pressure 105/49 Blood Pressure Position Semi-Fowlers Agent is seen on dialysis. No acute distress. No respiratory distress. No conversational dyspnea. Heart is regular rate and rhythm plus S1-S2 without any murmurs gallops or rubs. Lungs are clear to auscultation bilaterally. Discharge Diet: Low fat/ Low Cholesterol Discharge Activity: Return to Normal Activity Call your doctor if you observe: Fever of 101 or Higher, Shortness of breath, Chest pain Home Medications: Medications to take at Discharge Diltiazem HCl [Tiazac] 240 mg PO DAILY 07/10/15 Aspirin [Aspirin, Baby] 81 mg PO DAILY@0800 01/26/16 Calcium Acetate [Phoslo Gel Cap] 667 mg PO TIDCM 01/26/16 Ergocalciferol [Vitamin D] 50,000 unit PO FR 01/26/16 Insulin Aspart [Novolog Flexpen] 8 units SC TIDCM 01/26/16 Insulin Glargine,Hum.rec.anlog [Lantus] 5 unit SQ QHS 01/09/17 proMETHazine tablet [Phenergan tablet] 25 mg PO Q6H PRN PRN #10 tablet 03/06/17 Lisinopril 20 mg PO DAILY 03/29/17 Omeprazole Magnesium [Prilosec Otc] 20 mg PO DAILY 03/29/17 Sodium Bicarbonate 650 mg PO TUTHSA 03/29/17 Acetaminophen [Tylenol Tablet] 650 mg PO Q6H PRN PRN tablet 03/31/17 Carvedilol [Coreg (Beta Chang)] 25 mg PO BID 06/17/17 Fluoxetine HCl 40 mg PO DAILY 09/02/17 Vancomycin [Vancocin] 125 mg PO Q6H 11/05/17 hydrALAZINE [Apresoline] 25 mg PO TID 11/05/17 Azithromycin [Zithromax] 500 mg PO Q24H #3 tab 11/08/17 Cefdinir 300 mg PO QODAY #3 cap 11/08/17 Following Prescrptions Were Given to Patient: Azithromycin [Zithromax] 500 mg PO Q24H #3 tab Cefdinir 300 mg PO QODAY #3 cap Primary Care Physician: Christopher Foy MD [Primary Care Provider] - Within 2 Weeks [facility] Disposition: Home Minutes spent on discharge:: 32 Patient Condition:: Good Medical Necessity - Tobacco Use Smoking Status: Current every day smoker Tobacco Use: Cigarettes Meaningful Use Info Meaningful Use Diagnoses (Choose all that apply): None applicable Code Visit Inpatient E&M: 53974 Disch Hosp
--- NOTE | 2017-11-08 13:24 | CASEMGMT ---
Discharge instructions and [facility]. This RN WINSOME spoke with [facility] to notify them of pt discharge and fax sent, voices understanding. Monik TEJADA CM
[2017-11-08 13:40] LABS: Mycoplasma Pneum AB IgG 1348 U/mL (0-99); Mycoplasma pneum. AB IgM < 770 U/mL (0-769)
[2017-11-08] MEDS: Azithromycin 250 MG Tablet 500 MG PO (13:53)
[2017-11-08] MEDS: Carvedilol 25 MG Tablet PO (13:54)
[2017-11-08] MEDS: dilTIAZem CD 240 MG Capsule PO (13:54)
[2017-11-08] MEDS: Pantoprazole Sodium 20 MG Tablet PO (13:54)
[2017-11-08] MEDS: guaiFENesin 1,200 MG Tablet 1200 MG PO (13:54)
[2017-11-08] MEDS: FLUoxetine 20 MG Capsule 40 MG PO (13:55)
[2017-11-08] MEDS: Calcium Acetate 667 MG Capsule PO (13:55)
[2017-11-08] MEDS: Lisinopril 20 MG Tablet PO (13:55)
--- NOTE | 2017-11-08 14:00 | NURSING ---
All am meds given late at this time due to dialysis.
[2017-11-08] MEDS: Aspirin 81 MG TAB.CHEW PO (14:04)
--- NOTE | 2017-11-08 14:05 | NURSING ---
Pt states she is being discharged home today so she does not want this nurse to change her dressing. states that her niece will change it when she gets home and home health will be there tomorrow to reapply the wound VAC.
--- NOTE | 2017-11-08 14:24 | NURSING ---
Reviewed and agreed on all charting with Jesse Koo RN
--- NOTE | 2017-11-10 16:12 | CASEMGMT ---
RN WINSOME DISCHARGE F/U PHONE CALL LACE: 15 STRATA: 4 CALL DATE: 11/10/17 DISCHARGE DATE: 11/08/17 TIME OF CALL: [id number] DURATION: 1 MINUTE ADM DX: PNEUMONIA ATTEMPT AT THIS TIME, NO ANSWER, VM LEFT FOR PT TO CALL THIS RN WINSOME BACK. SSTATEN MALLORY SCHUMACHER
== END 2017-11-08 14:15 | disposition home health service (06) | DRG 177 ==
LOC: ED 09:21 → PCU 11:45
PROVIDERS: Internal Medicine Infectious Disease; Admitting Provider Hospitalist; Emergency Provider Emergency Medicine; Family Provider Family Medicine; PCP Family Medicine
DX: J15.6 Pneumonia due to other Gram-negative bacteria (principal); L89.153 Pressure ulcer of sacral region, stage 3; N18.6 End stage renal disease; J44.0 Chronic obstructive pulmonary disease with (acute) lower respiratory infection; I12.0 Hypertensive chronic kidney disease with stage 5 chronic kidney disease or end stage renal disease; A04.72 Enterocolitis due to Clostridium difficile, not specified as recurrent; E10.22 Type 1 diabetes mellitus with diabetic chronic kidney disease; Z99.2 Dependence on renal dialysis; E78.5 Hyperlipidemia, unspecified; E66.9 Obesity, unspecified; Z68.31 Body mass index [BMI] 31.0-31.9, adult; Z71.3 Dietary counseling and surveillance; G47.33 Obstructive sleep apnea (adult) (pediatric); I25.10 Atherosclerotic heart disease of native coronary artery without angina pectoris; K31.84 Gastroparesis; E10.43 Type 1 diabetes mellitus with diabetic autonomic (poly)neuropathy; F17.210 Nicotine dependence, cigarettes, uncomplicated; Z93.3 Colostomy status; Y95 Nosocomial condition; D63.8 Anemia in other chronic diseases classified elsewhere
CPT/HCPCS: 36415; 71045; 80048; 80053; 80202; 81001; 82962; 83605; 84484; 85025; 85027; 86738; 87040; 87449; 87493; 87632; 87641; 87804; 90937; 93005; 94640; 94667; 97802; 99285; J0885; J7030; A4216; G0257; J2405

== ENCOUNTER 2017-11-14 22:08 | Inpatient (IN) | payer MEDICARE, MEDICAID, SELFPAY ==
[2017-11-14 21:54] VITALS: PULSE 95
[2017-11-14 22:11] VITALS: BP 166/86; PULSE 96; RESP 36; TEMP 37; O2SAT 92; BMI 32.2
--- NOTE | 2017-11-14 22:22 | RAD_ITS ---
STUDY: X-RAY CHEST REASON FOR EXAM: Female, 41 years old. Dyspnea. Congestive heart failure. TECHNIQUE: Single AP portable view of the chest. COMPARISON: 11/05/2017. FINDINGS: Normal lung volumes. Worsening of bilateral diffuse pulmonary infiltrates most pronounced in the mid and lower lung vidales and right worse than left. Infiltrates are combination of interstitial and airspace opacities. As on the previous report this could represent congestion/edema and/or multifocal pneumonia. No gross effusions. Normal size heart. Normal mediastinum and latrell. Normal visualized pulmonary arteries. Normal visualized aortic arch and descending thoracic aorta. Normal visualized thoracic spine. Normal visualized ribs, clavicles, and shoulders. There is no demonstrated abnormality of the visualized soft tissue structures of the upper abdomen. RAD/Chest 1 View (Portable) IMPRESSION: Worsening of prominent bilateral diffuse infiltrates. Electronically Signed: James Kahn MD at 23:34 EDT , Service support ,
--- NOTE | 2017-11-14 22:22 | EKG12_ITS ---
Test Reason : ADM EKG Blood Pressure : / mmHG Vent. Rate : 095 BPM Atrial Rate : 095 BPM P-R Int : 146 ms QRS Dur : 088 ms QT Int : 364 ms P-R-T Axes : 034 049 115 degrees QTc Int : 457 ms Normal sinus rhythm ST & T wave abnormality, consider lateral ischemia Abnormal ECG When compared with ECG of 05-NOV-2017 08:48, T wave inversion now evident in Lateral leads Confirmed by DIVINA BEASLEY, SUSI ([id number]), scientific editor SHANIA SOLITARIO ([id number]) on 11/17/2017 1:26:48 PM Referred By: SOLEDAD Confirmed By:SUSI MURCIA MD
--- NOTE | 2017-11-14 22:29 | HP.PCM_ITS ---
Problem List (1) Pulmonary edema Status: Acute (2) Hyperkalemia Status: Acute (3) Atypical chest pain Status: Acute (4) Acute hypoxic respiratory failure Status: Acute (5) Pneumonia Status: Resolved (6) Decubitus ulcer, stage III Status: Chronic Qualifiers: (7) Clostridium difficile enterocolitis Status: Resolved (8) CAD (coronary artery disease) Status: Chronic Qualifiers: (9) 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 (10) Anemia, chronic disease Status: Chronic (11) Pilonidal cyst with abscess Status: Chronic (12) GABRIEL (obstructive sleep apnea) Status: Chronic (13) ESRD on dialysis Status: Chronic (14) Depression Status: Chronic Qualifiers: (15) Anxiety Status: Chronic (16) HTN (hypertension) Status: Chronic Qualifiers: (17) Nonischemic cardiomyopathy Status: Chronic Comment: With ejection fraction 45 - 50%; with angiographically normal coronary arteries 05/2013; follows up with Dr. Magdaleno (18) S/P repair of PDA (patent ductus arteriosus) Status: Chronic Comment: At young age (17) Diabetes mellitus type 1 Status: Chronic Qualifiers: (20) Hyperlipidemia Status: Chronic Qualifiers: (21) Obesity (BMI 30.0-34.9) Status: Chronic (22) Gastroparesis Status: Chronic History of Present Illness Date of Admission: 11/14/17 Chief Complaint: Shortness of breath presents today The patient is a 41 year old F with multiple comorbidities is being directly admitted from [facility] ER for acute onset of shortness of breath, tachypnea most probably secondary to missed hemodialysis today along with hyperkalemia. As per the ER physician, Dr Farfan, patient is very tachypneic respiratory rate 27, hypoxic and was put on BiPAP 24/8 at 50% FiO2 for short time but patient could not tolerate it. K6.6, bicarb 18, and n-BNP 20,645. EKG reviewed and shows normal sinus rhythm with nonspecific ST-T changes at 96 bpm. QTc 460 ms. There is no available chest x-ray to review but as per the ER physician, it shows pulmonary edema. On the floor, patient also said she had a chest pain, localized midsternal prior to the arrival to ER there and has resolved. Patient had a stress test in June 2017 which showed normal pharmacological myocardial perfusion imaging. EF noted 44%. In June 2017 she had echo which showed normal LV size with moderate concentric LVH. EF 45% with mild global hypokinesis. Normal RV size and systolic function. Normal right and left atria. RVSP 39 mmHg with mild TR. [] Past Medical History Past Medical History (Chronic Problems): Chronic Problems Decubitus ulcer, stage III (Chronic) CAD (coronary artery disease) (Chronic) Anemia, chronic disease (Chronic) Pilonidal cyst with abscess (Chronic) GABRIEL (obstructive sleep apnea) (Chronic) ESRD on dialysis (Chronic) Depression (Chronic) Anxiety (Chronic) HTN (hypertension) (Chronic) Nonischemic cardiomyopathy (Chronic) With ejection fraction 45 - 50%; with angiographically normal coronary arteries 05/2013; follows up with Dr. Magdaleno S/P repair of PDA (patent ductus arteriosus) (Chronic) At young age Diabetes mellitus type 1 (Chronic) Hyperlipidemia (Chronic) Obesity (BMI 30.0-34.9) (Chronic) Gastroparesis (Chronic) Allergies latex Allergy (Verified 11/05/17 08:34) Rash levofloxacin [From Levaquin] Adverse Reaction (Verified 11/05/17 08:34) PT CAN'T REMEMBER PT CAN'T REMEMBER metoclopramide HCl [From Reglan] Adverse Reaction (Verified 11/05/17 08:34) Nausea NSAIDS (Non-Steroidal Anti-Inflamma Adverse Reaction (Verified 11/05/17 08:34) kidney function oxycodone HCl [From Percocet] Adverse Reaction (Verified 11/05/17 08:34) HALLUCINATIONS Home Medications: Ambulatory Orders Medication Instructions Recorded Diltiazem HCl [Tiazac] 240 mg PO DAILY 07/10/15 Aspirin [Aspirin, Baby] 81 mg PO DAILY@0800 01/26/16 Calcium Acetate [Phoslo Gel Cap] 667 mg PO TIDCM 01/26/16 Ergocalciferol [Vitamin D] 50,000 unit PO FR 01/26/16 Insulin Aspart [Novolog Flexpen] 8 units SC TIDCM 01/26/16 Insulin Glargine,Hum.rec.anlog 5 unit SQ QHS 01/09/17 [Lantus] proMETHazine tablet [Phenergan 25 mg PO Q6H PRN PRN #10 tablet 03/06/17 tablet] Lisinopril 20 mg PO DAILY 03/29/17 Omeprazole Magnesium [Prilosec Otc] 20 mg PO DAILY 03/29/17 Sodium Bicarbonate 650 mg PO TUTHSA 03/29/17 Acetaminophen [Tylenol Tablet] 650 mg PO Q6H PRN PRN tablet 03/31/17 Carvedilol [Coreg (Beta Chang)] 25 mg PO BID 06/17/17 Fluoxetine HCl 40 mg PO DAILY 09/02/17 Vancomycin [Vancocin] 125 mg PO Q6H 11/05/17 hydrALAZINE [Apresoline] 25 mg PO TID 11/05/17 Azithromycin [Zithromax] 500 mg PO Q24H #3 tab 11/08/17 Cefdinir 300 mg PO QODAY #3 cap 11/08/17 Surgical History: appendectomy, hysterectomy - and BSO, - - c-sections, L breast I+D for abscess, fistula placement LUE, L ankle surgery, appendectomy, PDA repair. Excision pilonidal cyst ulcer about 4 years ago. Smoking Status: Current every day smoker - *Family History Maternal History Items: Cancer, COPD, Diabetes, Hypertension, Renal Disease, Stroke Paternal History Items: Diabetes Sibling History Items: Cancer, Diabetes Review of Systems Constitutional: Reports: Fever - About 2 3 days ago. In ER noted to be afebrile. Denies: Chills, Weight Change HEENT: Denies: Head Aches, Sinus Congestion, Sinus Drainage Cardiovascular: Reports: Chest Pain. Denies: Palpitations Respiratory: Reports: Shortness of breath at rest, Shortness of breath upon exertion. Denies: Cough, Sputum production Gastrointestinal: Reports: Nausea, Vomiting - Not able to keep food down. Probably has diagnosis of esophageal spasm, - - Diverting colostomy. Denies: Abdominal Pain Genitourinary: Denies: Dysuria Musculoskeletal: Denies: Joint Pain, Joint Tenderness Skin: Denies: Rash, Wounds Neurological: Denies: Numbness, Tingling, Focal weakness Psychiatric: Denies: Anxiety, Depression, Homicidal Ideations, Suicidal Ideations Hematologic/ Lymphatic: Denies: Easy Bruising, Easy Bleeding VTE Information - Inpt Only VTE Present on Admission: No VTE Mechan Device Prophylaxis: SCD's VTE Pharm Prophylaxis ordered?: Yes Patient Problems: Active and Suspected Problems Pulmonary edema (Acute) Hyperkalemia (Acute) Atypical chest pain (Acute) Acute hypoxic respiratory failure (Acute) - Physical Exam General: Alert, Oriented x3, Cooperative HEENT: Atraumatic, PERRLA, EOMI, Normocephalic Oral: Dry Mucosa Neck: Supple, No JVD, Negative Carotid Bruits Lungs: Diminished, Rales, Rhonchi, Short of Breath, Tachypneic Cardiovascular: Regular rate, Regular Rhythm, Normal S1, Normal S2, No murmurs Abdomen: Bowel Sounds Present, Soft, Non Tender, Non-Distended, - - Left upper quadrant colostomy. Had semi-formed stool with mucus today Extremities: No edema, Capillary Refill Less than 3 Seconds Skin: No rashes, No breakdown Musculoskeletal: No Tenderness to Palpation of Joints or Extremities, Muscle Wasting Neurological: Cranial nerves II-XII grossly intact Psych/Mental Status: Normal Affect, Appropriate Vital Signs Temp Pulse Resp BP Pulse Ox 98.6 F 96 36 H 166/86 H 92 11/14/17 22:11 11/14/17 22:11 11/14/17 22:11 11/14/17 22:11 11/14/17 22:11 Oxygen Delivery Method Venturi Mask Weight: 199 lb 8.293 oz Body Mass Index (BMI) 32.2 Finger Stick Blood Glucose 118 Assessment/Plan Active and Suspected Problems Pulmonary edema (Acute) Hyperkalemia (Acute) Atypical chest pain (Acute) Acute hypoxic respiratory failure (Acute) he patient is a 41 year old F with multiple comorbidities is being directly admitted from [facility] ER for acute onset of shortness of breath, tachypnea most probably secondary to missed hemodialysis today along with hyperkalemia. As per the ER physician, Dr Farfan, patient is very tachypneic respiratory rate 27, hypoxic and was put on BiPAP 24/8 at 50% FiO2 for short time but patient could not tolerate it. K6.6, bicarb 18, and n-BNP 20,645. EKG reviewed and shows normal sinus rhythm with nonspecific ST-T changes at 96 bpm. QTc 460 ms. There is no available chest x-ray to review but as per the ER physician, it shows pulmonary edema. On the floor, patient also said she had a chest pain, localized midsternal prior to the arrival to ER there and has resolved. Patient had a stress test in June 2017 which showed normal pharmacological myocardial perfusion imaging. EF noted 44%. In June 2017 she had echo which showed normal LV size with moderate concentric LVH. EF 45% with mild global hypokinesis. Normal RV size and systolic function. Normal right and left atria. RVSP 39 mmHg with mild TR. 1. Acute hypoxic respiratory failure most probably secondary to pulmonary edema : Patient is being admitted in PCU. Chest x-ray portable stat ordered. IV Lasix 40 mg to repeat if not get better in 30 minutes. BiPAP, 50% FiO2 18/8. 2. Pulmonary edema most probably due to missed hemodialysis: Discussed with the sider mechanic Dr. Eller and he advised dialysis. Serial cardiac enzymes. 3. Acute hyperkalemia secondary to missed hemodialysis with ESRD on hemodialysis: Urgent hemodialysis. BMP stat ordered. No EKG changes of hyperkalemia. Patient had 30 g Kayexalate and cocktail for hyperkalemia in ER there. 4 Atypical chest pain (resolved) most probably secondary to pulmonary edema: Serial cardiac enzymes. Patient had recent June 2017 stress and echo as mentioned above. Nitrate ointment 1% ordered now and then as needed every 6 hourly. 5 Hypertensive urgency: As per ER physician and ER note, she had hypertensive emergency mentioned but not able to see blood pressure recording in the ER documents. On the floor, 166/56. Home medication resumed. 6. Diabetes mellitus type 2: On Accu-Chek before meals and at bedtime and cover with NovoLog sliding scale. Levemir 10 units subcu twice daily. 7 intractable nausea and vomiting most probably secondary to gastroparesis: Phenergan and Zofran as needed. On PPI. Patient is allergic to Reglan. Other comorbidities occluded recent diagnosis of right upper lobe pneumonia for which she was admitted a week ago and completed antibiotic of Omnicef, coronary artery disease, anemia of chronic disease, pilonidal sinus with sepsis status post wound debridement, diverting colostomy, anxiety and depression, obesity and and dyslipidemia: Home medication reconciliation done. Multiple comorbidities and recurrent admission complicates the present care. This note was generated with [employer] software. Every effort was made to ensure accuracy, however computerized music therapist mistakes may persist. Code Visit Inpatient E&M: 28969 [facility] Hosp L3
[2017-11-14] MEDS: Furosemide 40 MG/4 ML Vial IV (22:47)
[2017-11-14] MEDS: Isosorbide DN 10 MG Tablet PO (22:47)
[2017-11-14] MEDS: Morphine 2 MG/ML Syringe IV (22:48)
[2017-11-14] MEDS: Ondansetron 4 MG/2 ML Vial IV (22:54)
[2017-11-14 23:00] VITALS: BP 167/85; PULSE 96; RESP 32; TEMP 36.7; O2SAT 91
[2017-11-14 23:05] VITALS: PULSE 94; RESP 12; RESP 30; O2SAT 95
[2017-11-14 23:45] VITALS: BP 152/77; PULSE 87; RESP 22; TEMP 36.7
[2017-11-14 23:47] LABS: Anion Gap 9 (5-15); BUN 56 mg/dL (7-18); BUN/Creat Ratio 8.3 RATIO (10-20); Calcium,Total 8.9 mg/dL (8.5-10.1); Chloride 109 mmol/L (98-107); Creatinine, Serum 6.73 mg/dL (0.55-1.02); EST Glomerular Filtration Rate 7 mL/min (>60); Est Glom Filt Rate - Afr Amer 9 mL/min (>60); Estimated Creatinine Clearance 10.09 ml/min; Glucose 157 mg/dL (74-106); Magnesium 2.1 mg/dL (1.6-2.6); Potassium 6.2 mmol/L (3.5-5.1); Sodium Level 137 mmol/L (136-145); Thyroid Stim Hormone (TSH) 1.21 uIU/mL (0.358-3.74)
[2017-11-15] VITALS (23 sets, daily range): BP systolic 112–158; BP diastolic 61–77; PULSE 66–97; RESP 12–30; TEMP 36.7–37.3; O2SAT 93–100; BMI 32.2
--- NOTE | 2017-11-15 03:48 | DIALYSIS ---
Hemodialysis x 3 hours with 1K for 1st hour & 2K for 2 hours. Tolerated well. Removed = -3000; LLAVF needles pulled; stasis complete; DSD applied; +bruit +thrill. Report given to MALLORY.
[2017-11-15] MEDS: Morphine 2 MG/ML Syringe IV ×4 (03:51→21:01)
[2017-11-15] MEDS: Lidocaine/Prilocaine HCl 5 GM Tube TOPICAL (03:52)
[2017-11-15 04:51] LABS: Absolute Neutrophil Count 6.8 X10^3/uL (2.0-7.7); Basophil# 0.01 X10^3/uL; Basophil% 0.1 % (0-1); Eosinophil# 0.27 X10^3/uL; Eosinophils% 3.2 % (0-5); Hematocrit 25.7 % (37-47); Hemoglobin 8.3 g/dl (12.0-15.0); Lymphocyte % 12.8 % (19-41); Mean Corp Hgb Conc 32.3 g/gl (32-36); Mean Corpuscular Hgb 32.9 pg (27.0-32.0); Monocyte# 0.42 X10^3/uL; Monocyte% 4.9 % (0-10); Neutrophil # 6.75 X10^3/uL (2.7-7.7); Neutrophil % 78.8 % (47-70); Platelet Count 174 K/mm3 (150-450); RBC Distribution Width CV 16.1 % (11.6-14.6); RBC Distribution Width SD 57.7 fl (35.1-43.9); Red Blood Count 2.52 M/mm3 (4.2-5.4); White Blood Count 8.6 K/mm3 (4.4-11.0)
[2017-11-15 04:52] LABS: POSITIVE COUNT NO; POSITIVE DIFFERENTIAL NO; POSITIVE MORPHOLOGY NO
--- NOTE | 2017-11-15 05:20 | EKG12_ITS ---
Test Reason : ARRYTH Blood Pressure : / mmHG Vent. Rate : 086 BPM Atrial Rate : 086 BPM P-R Int : 136 ms QRS Dur : 084 ms QT Int : 402 ms P-R-T Axes : 030 051 122 degrees QTc Int : 481 ms Normal sinus rhythm Nonspecific T wave abnormality Prolonged QT Abnormal ECG When compared with ECG of 15-NOV-2017 05:38, MANUAL COMPARISON REQUIRED, DATA IS UNCONFIRMED Confirmed by DIVINA BEASLEY, SUSI ([id number]), assignment editor SHANIA SOLITARIO ([id number]) on 11/17/2017 1:25:09 PM Referred By: Confirmed By:SUSI MURCIA MD
[2017-11-15 05:31] LABS: Anion Gap 8 (5-15); BUN 25 mg/dL (7-18); BUN/Creat Ratio 6.4 RATIO (10-20); Calcium,Total 8.8 mg/dL (8.5-10.1); Chloride 104 mmol/L (98-107); Cholesterol 142 mg/dL (200); Creatinine, Serum 3.88 mg/dL (0.55-1.02); EST Glomerular Filtration Rate 13 mL/min (>60); Est Glom Filt Rate - Afr Amer 16 mL/min (>60); Glucose 121 mg/dL (74-106); High Density Lipoprotein 42 mg/dL; Sodium Level 139 mmol/L (136-145); Triglycerides 114 mg/dL; Very Low Density Lipoprotein 23 mg/dL (5-40)
[2017-11-15] MEDS: hydrALAZINE 25 MG Tablet PO ×3 (06:09→22:38)
[2017-11-15] MEDS: Isosorbide DN 10 MG Tablet PO (06:10)
[2017-11-15 06:55] LABS: Bedside Glucose 157 mg/dL (70-110)
[2017-11-15] MEDS: Aspirin 81 MG TAB.CHEW PO (07:52)
[2017-11-15] MEDS: Calcium Acetate 667 MG Capsule PO ×3 (07:52→17:01)
[2017-11-15 09:18] LABS: Hemoglobin A1c 5.3 % (4.2-6.3)
[2017-11-15] MEDS: Carvedilol 25 MG Tablet PO ×2 (09:38→22:38)
[2017-11-15] MEDS: Heparin Injection (Vial) 5,000 UNIT/ML VIAL 5000 UNIT SC ×2 (09:38→22:38)
[2017-11-15] MEDS: dilTIAZem CD 240 MG Capsule PO (09:38)
[2017-11-15] MEDS: Pantoprazole Sodium 40 MG Tablet PO (09:39)
[2017-11-15] MEDS: FLUoxetine 20 MG Capsule 40 MG PO (09:40)
[2017-11-15] MEDS: 0.9% NaCl Peripheral Flush Adult/Peds IV ×3 (09:42→21:03)
--- NOTE | 2017-11-15 10:26 | PCM.CONS.R ---
Problem List (1) Pulmonary edema Status: Acute (2) ESRD (end stage renal disease) on dialysis Status: Chronic (3) Hyperkalemia Status: Acute (4) Acute hypoxic respiratory failure Status: Acute Consultation - Renal PCP/ Referring MD: Requesting physician: [] Primary care physician: Christopher Foy - History of Present Illness History of Present Illness: The patient is a 41 year old F ESRD on TTS Patient presented with SOB . Patient was found to have hyperkalemia 6.5 and pulmonary edema Patient was dialyzed urgently last night with 3 L UF Patient missed yesterday HD session . Patient is now on NC 2l/m which is her baseline 02 requirement ROS: 12 systems review is negative this morning [] - Allergies Allergies: Allergies latex Allergy (Verified 11/05/17 08:34) Rash levofloxacin [From Levaquin] Adverse Reaction (Verified 11/05/17 08:34) PT CAN'T REMEMBER PT CAN'T REMEMBER metoclopramide HCl [From Reglan] Adverse Reaction (Verified 11/05/17 08:34) Nausea NSAIDS (Non-Steroidal Anti-Inflamma Adverse Reaction (Verified 11/05/17 08:34) kidney function oxycodone HCl [From Percocet] Adverse Reaction (Verified 11/05/17 08:34) HALLUCINATIONS - Current Medications Current Medications: Current Medications Acetaminophen (Tylenol) 650 mg PO Q6H PRN PRN PRN Reason: Mild Pain (scale 0-3)/T>100.7 Hydrocodone Bitart/Acetaminophen ([place] 5mg-325mg) 1 tablet PO Q6H PRN PRN PRN Reason: PAIN Aspirin (Aspirin, Baby) 81 mg PO DAILY@0800 [facility] Last Admin: 11/15/17 07:52 Dose: 81 mg Calcium Acetate (Phoslo Gel Cap) 667 mg PO TIDCM [facility] Last Admin: 11/15/17 07:52 Dose: 667 mg Carvedilol (Coreg) 25 mg PO BID [facility] Last Admin: 11/15/17 09:38 Dose: 25 mg Dextrose (D50w Syringe) 0 gm IV X1 PRN; Protocol PRN Reason: Hypoglycemia Diltiazem HCl (Cardizem Cd) 240 mg PO DAILY [facility] Last Admin: 11/15/17 09:38 Dose: 240 mg Docusate Sodium (Colace) 200 mg PO BID PRN PRN PRN Reason: Constipation Ergocalciferol (Vitamin D) 50,000 unit PO FR [facility] Fluoxetine HCl (Prozac) 40 mg PO DAILY [facility] Last Admin: 11/15/17 09:40 Dose: 40 mg Glucagon () 1 mg IM .X1 PRN PRN Reason: Hypoglycemia Heparin Sodium (Porcine) (Heparin Na) 5,000 unit SC BID [facility] Last Admin: 11/15/17 09:38 Dose: 5,000 units Hydralazine HCl (Apresoline) 25 mg PO TID [facility] Last Admin: 11/15/17 06:09 Dose: 25 mg Insulin Aspart (Novolog Flexpen (Bkc)) 0 units SC ACHS [facility] PRN Reason: Protocol Last Admin: 11/15/17 07:54 Dose: 2 units Insulin Aspart (Novolog Flexpen (Bkc)) 8 units SC TIDAC [facility] Last Admin: 11/15/17 07:54 Dose: 8 units Insulin Detemir (Levemir ([facility])) 10 units SC BID [facility] Last Admin: 11/15/17 09:39 Dose: 10 units Isosorbide Dinitrate (Isordil) 10 mg PO TID [facility] Last Admin: 11/15/17 06:10 Dose: 10 mg Morphine Sulfate () 1 - 2 mg IV Q4H PRN PRN PRN Reason: SEVERE PAIN (6-10/10) Last Admin: 11/15/17 09:42 Dose: 2 mg Nitroglycerin (Nitrobid) 1 inch TRANSDERM. Q6H PRN PRN PRN Reason: chest pain Ondansetron HCl (Zofran) 4 mg IV Q8H PRN PRN PRN Reason: Nausea Last Admin: 11/14/17 22:54 Dose: 4 mg Pantoprazole Sodium (Protonix) 40 mg PO DAILY [facility] Last Admin: 11/15/17 09:39 Dose: 40 mg Polyethylene Glycol (Miralax) 17 gm PO DAILY [facility] Last Admin: 11/15/17 09:39 Dose: Not Given Promethazine HCl (Phenergan) 12.5 mg IV Q4H PRN PRN PRN Reason: NAUSEA/VOMITING Sodium Bicarbonate (Sodium Bicarbonate) 650 mg PO TuThSa@1000 [facility] Sodium Chloride () 5 - 30 ml IV UD PRN PRN Reason: SALINE FLUSH Last Admin: 11/15/17 09:42 Dose: 10 ml Zolpidem Tartrate (Ambien (Generic)) 5 mg PO QHS PRN PRN PRN Reason: INSOMNIA - Past Medical History Past Medical History (Chronic Problems): Chronic Problems ESRD (end stage renal disease) on dialysis (Chronic) Decubitus ulcer, stage III (Chronic) CAD (coronary artery disease) (Chronic) Anemia, chronic disease (Chronic) Pilonidal cyst with abscess (Chronic) GABRIEL (obstructive sleep apnea) (Chronic) ESRD on dialysis (Chronic) Depression (Chronic) Anxiety (Chronic) HTN (hypertension) (Chronic) Nonischemic cardiomyopathy (Chronic) With ejection fraction 45 - 50%; with angiographically normal coronary arteries 05/2013; follows up with Dr. Magdaleno S/P repair of PDA (patent ductus arteriosus) (Chronic) At young age Diabetes mellitus type 1 (Chronic) Hyperlipidemia (Chronic) Obesity (BMI 30.0-34.9) (Chronic) Gastroparesis (Chronic) - Past Surgical History Surgical History: appendectomy, hysterectomy - and BSO, - - c-sections, L breast I+D for abscess, fistula placement LUE, L ankle surgery, appendectomy, PDA repair. Excision pilonidal cyst ulcer about 4 years ago. - Social History Smoking Status: Current every day smoker - Family History Maternal History Items: Cancer, COPD, Diabetes, Hypertension, Renal Disease, Stroke Paternal History Items: Diabetes Sibling History Items: Cancer, Diabetes Patient Problems: Active and Suspected Problems Pulmonary edema (Acute) Hyperkalemia (Acute) Atypical chest pain (Acute) Acute hypoxic respiratory failure (Acute) Pulmonary edema (Acute) - Physical Exam General: Alert, Oriented x3 HEENT: Atraumatic, PERRLA Oral: Moist Mucosa Neck: Supple, No JVD Lungs: Clear to auscultation, Normal air movement, No rhonchi, No wheeze, No rales Cardiovascular: Regular rate, Regular Rhythm Abdomen: Bowel Sounds Present, Soft, Non Tender Extremities: No clubbing, No cyanosis, No edema Skin: No rashes Musculoskeletal: No Tenderness to Palpation of Joints or Extremities Lymphatic: No Cervical, Supraclavicular, or Inguinal Adenopathy Neurological: Cranial nerves II-XII grossly intact Psych/Mental Status: Normal Affect Comment: HD access is LUE AVF with good thrill and bruit Vital Signs Temp Pulse Resp BP Pulse Ox 98.3 F 94 30 H 147/69 H 98 11/15/17 09:50 11/15/17 09:50 11/15/17 09:50 11/15/17 09:50 11/15/17 09:50 Oxygen Flow Rate (L/min) 3 Oxygen Delivery Method Nasal Cannula Weight: 87.7 kg Body Mass Index (BMI) 32.2 Finger Stick Blood Glucose 118 Intake and Output for Last 24 Hours 11/13/17 11/14/17 11/15/17 23:59 23:59 23:59 Output Total 150 / 150 6200 / 6200 Balance -150 / -150 -6200 / -6200 Laboratory Tests Past 24 Hrs 11/14/17 11/14/17 11/15/17 22:45 22:45 04:20 WBC RBC Hgb Hct MCV MCH MCHC RDW RDW Differential Plt Count MPV Immature Gran % (Auto) Neut % (Auto) Lymph % (Auto) [place] % (Auto) Eos % (Auto) Baso % (Auto) Absolute Neuts (auto) Absolute Lymphs (auto) Total Counted Sodium 137 Potassium 6.2 H* Chloride 109 H Carbon Dioxide 19.0 L Anion Gap 9 BUN 56 H Creatinine 6.73 H Estim Creat Clear Calc 10.09 Est GFR (MDRD) Af Amer 9 L Est GFR (MDRD) Non-Af 7 L BUN/Creatinine Ratio 8.3 L Glucose 157 H Hemoglobin A1c 5.3 Calcium 8.9 Magnesium 2.1 Troponin I 0.04 Triglycerides Cholesterol LDL Cholesterol VLDL Cholesterol HDL Cholesterol TSH 1.21 11/15/17 11/15/17 11/15/17 04:20 04:20 04:20 WBC 8.6 RBC 2.52 L Hgb 8.3 L Hct 25.7 L MCV 102.0 H MCH 32.9 H MCHC 32.3 RDW 16.1 H RDW Differential 57.7 H Plt Count 174 MPV 8.0 Immature Gran % (Auto) 0.200 Neut % (Auto) 78.8 H Lymph % (Auto) 12.8 L [place] % (Auto) 4.9 Eos % (Auto) 3.2 Baso % (Auto) 0.1 Absolute Neuts (auto) 6.8 Absolute Lymphs (auto) 1.10 Total Counted Not Reportable Sodium 139 Potassium 4.0 Chloride 104 Carbon Dioxide 27.0 Anion Gap 8 BUN 25 H Creatinine 3.88 H Estim Creat Clear Calc 17.50 Est GFR (MDRD) Af Amer 16 L Est GFR (MDRD) Non-Af 13 L BUN/Creatinine Ratio 6.4 L Glucose 121 H Hemoglobin A1c Calcium 8.8 Magnesium Troponin I 0.08 H Triglycerides 114 Cholesterol 142 LDL Cholesterol 77 VLDL Cholesterol 23 HDL Cholesterol 42 TSH 11/15/17 08:00 WBC RBC Hgb Hct MCV MCH MCHC RDW RDW Differential Plt Count MPV Immature Gran % (Auto) Neut % (Auto) Lymph % (Auto) [place] % (Auto) Eos % (Auto) Baso % (Auto) Absolute Neuts (auto) Absolute Lymphs (auto) Total Counted Sodium Potassium Chloride Carbon Dioxide Anion Gap BUN Creatinine Estim Creat Clear Calc Est GFR (MDRD) Af Amer Est GFR (MDRD) Non-Af BUN/Creatinine Ratio Glucose Hemoglobin A1c Calcium Magnesium Troponin I 0.07 H Triglycerides Cholesterol LDL Cholesterol VLDL Cholesterol HDL Cholesterol TSH POC Glucose 11/15/17 06:36 POC Glucose 157 H Assessment/Plan Active and Suspected Problems Pulmonary edema (Acute) Hyperkalemia (Acute) Atypical chest pain (Acute) Acute hypoxic respiratory failure (Acute) Pulmonary edema (Acute) 1- ESRD on TTS schedule of HD. Patient goes to [facility] HD Unit Missed HD session yesterday 11/14 Patient presented with acute hypoxemic RF due to pulmonary edema and hyperkalemia She was dialyzed urgently last night with 3 L UF, 1 K for 1 hour and then 2 K for the rest of treatment No need of HD today Next session is tomorrow 11/16 URR is 70% and more 2- HTN: BP is well controlled . continue the same BP meds 3- Hyperkalemia . due to missing HD session. resolved with HD session. Continue renal diet 4- Acute hypoxemic RF due to pulmonary edema S/P HD and 3 L UF Now on NC 2 l/m Keep O>I with UF Will continue to follow Maria Isabel Valdivia MD [phone]
--- NOTE | 2017-11-15 10:35 | CON.PCM_ITS ---
Problem List (1) Pulmonary edema Status: Acute (2) ESRD (end stage renal disease) on dialysis Status: Chronic (3) Hyperkalemia Status: Acute (4) Acute hypoxic respiratory failure Status: Acute Consultation - Renal PCP/ Referring MD: Requesting physician: [] Primary care physician: Christopher Foy - History of Present Illness History of Present Illness: The patient is a 41 year old F ESRD on TTS Patient presented with SOB . Patient was found to have hyperkalemia 6.5 and pulmonary edema Patient was dialyzed urgently last night with 3 L UF Patient missed yesterday HD session . Patient is now on NC 2l/m which is her baseline 02 requirement ROS: 12 systems review is negative this morning [] - Allergies Allergies: Allergies latex Allergy (Verified 11/05/17 08:34) Rash levofloxacin [From Levaquin] Adverse Reaction (Verified 11/05/17 08:34) PT CAN'T REMEMBER PT CAN'T REMEMBER metoclopramide HCl [From Reglan] Adverse Reaction (Verified 11/05/17 08:34) Nausea NSAIDS (Non-Steroidal Anti-Inflamma Adverse Reaction (Verified 11/05/17 08:34) kidney function oxycodone HCl [From Percocet] Adverse Reaction (Verified 11/05/17 08:34) HALLUCINATIONS - Current Medications Current Medications: Current Medications Acetaminophen (Tylenol) 650 mg PO Q6H PRN PRN PRN Reason: Mild Pain (scale 0-3)/T>100.7 Hydrocodone Bitart/Acetaminophen ([place] 5mg-325mg) 1 tablet PO Q6H PRN PRN PRN Reason: PAIN Aspirin (Aspirin, Baby) 81 mg PO DAILY@0800 [facility] Last Admin: 11/15/17 07:52 Dose: 81 mg Calcium Acetate (Phoslo Gel Cap) 667 mg PO TIDCM [facility] Last Admin: 11/15/17 07:52 Dose: 667 mg Carvedilol (Coreg) 25 mg PO BID [facility] Last Admin: 11/15/17 09:38 Dose: 25 mg Dextrose (D50w Syringe) 0 gm IV X1 PRN; Protocol PRN Reason: Hypoglycemia Diltiazem HCl (Cardizem Cd) 240 mg PO DAILY [facility] Last Admin: 11/15/17 09:38 Dose: 240 mg Docusate Sodium (Colace) 200 mg PO BID PRN PRN PRN Reason: Constipation Ergocalciferol (Vitamin D) 50,000 unit PO FR [facility] Fluoxetine HCl (Prozac) 40 mg PO DAILY [facility] Last Admin: 11/15/17 09:40 Dose: 40 mg Glucagon () 1 mg IM .X1 PRN PRN Reason: Hypoglycemia Heparin Sodium (Porcine) (Heparin Na) 5,000 unit SC BID [facility] Last Admin: 11/15/17 09:38 Dose: 5,000 units Hydralazine HCl (Apresoline) 25 mg PO TID [facility] Last Admin: 11/15/17 06:09 Dose: 25 mg Insulin Aspart (Novolog Flexpen (Bkc)) 0 units SC ACHS [facility] PRN Reason: Protocol Last Admin: 11/15/17 07:54 Dose: 2 units Insulin Aspart (Novolog Flexpen (Bkc)) 8 units SC TIDAC [facility] Last Admin: 11/15/17 07:54 Dose: 8 units Insulin Detemir (Levemir ([facility])) 10 units SC BID [facility] Last Admin: 11/15/17 09:39 Dose: 10 units Isosorbide Dinitrate (Isordil) 10 mg PO TID [facility] Last Admin: 11/15/17 06:10 Dose: 10 mg Morphine Sulfate () 1 - 2 mg IV Q4H PRN PRN PRN Reason: SEVERE PAIN (6-10/10) Last Admin: 11/15/17 09:42 Dose: 2 mg Nitroglycerin (Nitrobid) 1 inch TRANSDERM. Q6H PRN PRN PRN Reason: chest pain Ondansetron HCl (Zofran) 4 mg IV Q8H PRN PRN PRN Reason: Nausea Last Admin: 11/14/17 22:54 Dose: 4 mg Pantoprazole Sodium (Protonix) 40 mg PO DAILY [facility] Last Admin: 11/15/17 09:39 Dose: 40 mg Polyethylene Glycol (Miralax) 17 gm PO DAILY [facility] Last Admin: 11/15/17 09:39 Dose: Not Given Promethazine HCl (Phenergan) 12.5 mg IV Q4H PRN PRN PRN Reason: NAUSEA/VOMITING Sodium Bicarbonate (Sodium Bicarbonate) 650 mg PO TuThSa@1000 [facility] Sodium Chloride () 5 - 30 ml IV UD PRN PRN Reason: SALINE FLUSH Last Admin: 11/15/17 09:42 Dose: 10 ml Zolpidem Tartrate (Ambien (Generic)) 5 mg PO QHS PRN PRN PRN Reason: INSOMNIA - Past Medical History Past Medical History (Chronic Problems): Chronic Problems ESRD (end stage renal disease) on dialysis (Chronic) Decubitus ulcer, stage III (Chronic) CAD (coronary artery disease) (Chronic) Anemia, chronic disease (Chronic) Pilonidal cyst with abscess (Chronic) GABRIEL (obstructive sleep apnea) (Chronic) ESRD on dialysis (Chronic) Depression (Chronic) Anxiety (Chronic) HTN (hypertension) (Chronic) Nonischemic cardiomyopathy (Chronic) With ejection fraction 45 - 50%; with angiographically normal coronary arteries 05/2013; follows up with Dr. Magdaleno S/P repair of PDA (patent ductus arteriosus) (Chronic) At young age Diabetes mellitus type 1 (Chronic) Hyperlipidemia (Chronic) Obesity (BMI 30.0-34.9) (Chronic) Gastroparesis (Chronic) - Past Surgical History Surgical History: appendectomy, hysterectomy - and BSO, - - c-sections, L breast I+D for abscess, fistula placement LUE, L ankle surgery, appendectomy, PDA repair. Excision pilonidal cyst ulcer about 4 years ago. - Social History Smoking Status: Current every day smoker - Family History Maternal History Items: Cancer, COPD, Diabetes, Hypertension, Renal Disease, Stroke Paternal History Items: Diabetes Sibling History Items: Cancer, Diabetes Patient Problems: Active and Suspected Problems Pulmonary edema (Acute) Hyperkalemia (Acute) Atypical chest pain (Acute) Acute hypoxic respiratory failure (Acute) Pulmonary edema (Acute) - Physical Exam General: Alert, Oriented x3 HEENT: Atraumatic, PERRLA Oral: Moist Mucosa Neck: Supple, No JVD Lungs: Clear to auscultation, Normal air movement, No rhonchi, No wheeze, No rales Cardiovascular: Regular rate, Regular Rhythm Abdomen: Bowel Sounds Present, Soft, Non Tender Extremities: No clubbing, No cyanosis, No edema Skin: No rashes Musculoskeletal: No Tenderness to Palpation of Joints or Extremities Lymphatic: No Cervical, Supraclavicular, or Inguinal Adenopathy Neurological: Cranial nerves II-XII grossly intact Psych/Mental Status: Normal Affect Comment: HD access is LUE AVF with good thrill and bruit Vital Signs Temp Pulse Resp BP Pulse Ox 98.3 F 94 30 H 147/69 H 98 11/15/17 09:50 11/15/17 09:50 11/15/17 09:50 11/15/17 09:50 11/15/17 09:50 Oxygen Flow Rate (L/min) 3 Oxygen Delivery Method Nasal Cannula Weight: 87.7 kg Body Mass Index (BMI) 32.2 Finger Stick Blood Glucose 118 Intake and Output for Last 24 Hours 11/13/17 11/14/17 11/15/17 23:59 23:59 23:59 Output Total 150 / 150 6200 / 6200 Balance -150 / -150 -6200 / -6200 Laboratory Tests Past 24 Hrs 11/14/17 11/14/17 11/15/17 22:45 22:45 04:20 WBC RBC Hgb Hct MCV MCH MCHC RDW RDW Differential Plt Count MPV Immature Gran % (Auto) Neut % (Auto) Lymph % (Auto) [place] % (Auto) Eos % (Auto) Baso % (Auto) Absolute Neuts (auto) Absolute Lymphs (auto) Total Counted Sodium 137 Potassium 6.2 H* Chloride 109 H Carbon Dioxide 19.0 L Anion Gap 9 BUN 56 H Creatinine 6.73 H Estim Creat Clear Calc 10.09 Est GFR (MDRD) Af Amer 9 L Est GFR (MDRD) Non-Af 7 L BUN/Creatinine Ratio 8.3 L Glucose 157 H Hemoglobin A1c 5.3 Calcium 8.9 Magnesium 2.1 Troponin I 0.04 Triglycerides Cholesterol LDL Cholesterol VLDL Cholesterol HDL Cholesterol TSH 1.21 11/15/17 11/15/17 11/15/17 04:20 04:20 04:20 WBC 8.6 RBC 2.52 L Hgb 8.3 L Hct 25.7 L MCV 102.0 H MCH 32.9 H MCHC 32.3 RDW 16.1 H RDW Differential 57.7 H Plt Count 174 MPV 8.0 Immature Gran % (Auto) 0.200 Neut % (Auto) 78.8 H Lymph % (Auto) 12.8 L [place] % (Auto) 4.9 Eos % (Auto) 3.2 Baso % (Auto) 0.1 Absolute Neuts (auto) 6.8 Absolute Lymphs (auto) 1.10 Total Counted Not Reportable Sodium 139 Potassium 4.0 Chloride 104 Carbon Dioxide 27.0 Anion Gap 8 BUN 25 H Creatinine 3.88 H Estim Creat Clear Calc 17.50 Est GFR (MDRD) Af Amer 16 L Est GFR (MDRD) Non-Af 13 L BUN/Creatinine Ratio 6.4 L Glucose 121 H Hemoglobin A1c Calcium 8.8 Magnesium Troponin I 0.08 H Triglycerides 114 Cholesterol 142 LDL Cholesterol 77 VLDL Cholesterol 23 HDL Cholesterol 42 TSH 11/15/17 08:00 WBC RBC Hgb Hct MCV MCH MCHC RDW RDW Differential Plt Count MPV Immature Gran % (Auto) Neut % (Auto) Lymph % (Auto) [place] % (Auto) Eos % (Auto) Baso % (Auto) Absolute Neuts (auto) Absolute Lymphs (auto) Total Counted Sodium Potassium Chloride Carbon Dioxide Anion Gap BUN Creatinine Estim Creat Clear Calc Est GFR (MDRD) Af Amer Est GFR (MDRD) Non-Af BUN/Creatinine Ratio Glucose Hemoglobin A1c Calcium Magnesium Troponin I 0.07 H Triglycerides Cholesterol LDL Cholesterol VLDL Cholesterol HDL Cholesterol TSH POC Glucose 11/15/17 06:36 POC Glucose 157 H Assessment/Plan Active and Suspected Problems Pulmonary edema (Acute) Hyperkalemia (Acute) Atypical chest pain (Acute) Acute hypoxic respiratory failure (Acute) Pulmonary edema (Acute) 1- ESRD on TTS schedule of HD. Patient goes to [facility] HD Unit Missed HD session yesterday 11/14 Patient presented with acute hypoxemic RF due to pulmonary edema and hyperkalemia She was dialyzed urgently last night with 3 L UF, 1 K for 1 hour and then 2 K for the rest of treatment No need of HD today Next session is tomorrow 11/16 URR is 70% and more 2- HTN: BP is well controlled . continue the same BP meds 3- Hyperkalemia . due to missing HD session. resolved with HD session. Continue renal diet 4- Acute hypoxemic RF due to pulmonary edema S/P HD and 3 L UF Now on NC 2 l/m Keep O>I with UF Will continue to follow Maria Isabel Valdivia MD [phone]
--- NOTE | 2017-11-15 10:37 | CASEMGMT ---
READMISSION CHART REVIEW-Pt was just admitted 11/05/17-11/08/17, see CM assessment completed by this RN CM on 11/06/17 as there have been no changes at this time. Pt missed dialysis because she said she had f/u appt at wound clinic but did not go to that appt either. Adm dx for current visit: Pulm edema, respiratory failure- Purnima López [facility] notified of pt admission and missed dialysis, voices understanding, and resumption of care order will be placed at this time. Per Maribel, the [facility] nurses have been having discussions with pt regarding her actual 'homebound status'. Per Maribel, pt has been driving different places and they have informed her that per [facility] guidelines, pt cannot receive HHC if she is not homebound. Maribel states that they would like notified when pt to be discharged and d/c instructions faxed. [employer] TEJADA CM
[2017-11-15 11:10] LABS: Bedside Glucose 187 mg/dL (70-110)
--- NOTE | 2017-11-15 11:14 | PCM.PROGNOTE ---
<Gael Vega - Last Filed: 11/15/17 11:14> Patient Problems: Active and Suspected Problems Pulmonary edema (Acute) Hyperkalemia (Acute) Atypical chest pain (Acute) Acute hypoxic respiratory failure (Acute) Pulmonary edema (Acute) Subjective: Pt feeling much improved with dialysis however had increase in troponin and nonspecific t wave changes on EKG in AM. Hx stents and CAD. Pt of Dr. Magdaleno. Consulted for further workup. Pt ate this morning. - Physical Exam General: Alert, Oriented x3, Cooperative HEENT: Atraumatic, PERRLA, EOMI, Normocephalic Neck: Supple, No JVD, Negative Carotid Bruits Lungs: Normal air movement, Rales - BL Cardiovascular: Regular rate, No murmurs Abdomen: Bowel Sounds Present, Soft, Non Tender Extremities: No edema, Capillary Refill Less than 3 Seconds Skin: No rashes, No breakdown Musculoskeletal: No Tenderness to Palpation of Joints or Extremities Neurological: Cranial nerves II-XII grossly intact Psych/Mental Status: Normal Affect, Appropriate, Alert and oriented to time, place, person, mood and affect Vital Signs Temp Pulse Resp BP Pulse Ox 98.3 F 94 30 H 147/69 H 98 11/15/17 09:50 11/15/17 09:50 11/15/17 09:50 11/15/17 09:50 11/15/17 09:50 Oxygen Flow Rate (L/min) 3 Oxygen Delivery Method Nasal Cannula Weight: 87.7 kg Body Mass Index (BMI) 32.2 Finger Stick Blood Glucose 118 Intake and Output for Last 24 Hours 11/13/17 11/14/17 11/15/17 23:59 23:59 23:59 Output Total 150 / 150 6200 / 6200 Balance -150 / -150 -6200 / -6200 Laboratory Tests Past 24 Hrs 11/14/17 11/14/17 11/15/17 22:45 22:45 04:20 WBC RBC Hgb Hct MCV MCH MCHC RDW RDW Differential Plt Count MPV Immature Gran % (Auto) Neut % (Auto) Lymph % (Auto) Mccracken % (Auto) Eos % (Auto) Baso % (Auto) Absolute Neuts (auto) Absolute Lymphs (auto) Total Counted Sodium 137 Potassium 6.2 H* Chloride 109 H Carbon Dioxide 19.0 L Anion Gap 9 BUN 56 H Creatinine 6.73 H Estim Creat Clear Calc 10.09 Est GFR (MDRD) Af Amer 9 L Est GFR (MDRD) Non-Af 7 L BUN/Creatinine Ratio 8.3 L Glucose 157 H Hemoglobin A1c 5.3 Calcium 8.9 Magnesium 2.1 Troponin I 0.04 Triglycerides Cholesterol LDL Cholesterol VLDL Cholesterol HDL Cholesterol TSH 1.21 11/15/17 11/15/17 11/15/17 04:20 04:20 04:20 WBC 8.6 RBC 2.52 L Hgb 8.3 L Hct 25.7 L MCV 102.0 H MCH 32.9 H MCHC 32.3 RDW 16.1 H RDW Differential 57.7 H Plt Count 174 MPV 8.0 Immature Gran % (Auto) 0.200 Neut % (Auto) 78.8 H Lymph % (Auto) 12.8 L Mccracken % (Auto) 4.9 Eos % (Auto) 3.2 Baso % (Auto) 0.1 Absolute Neuts (auto) 6.8 Absolute Lymphs (auto) 1.10 Total Counted Not Reportable Sodium 139 Potassium 4.0 Chloride 104 Carbon Dioxide 27.0 Anion Gap 8 BUN 25 H Creatinine 3.88 H Estim Creat Clear Calc 17.50 Est GFR (MDRD) Af Amer 16 L Est GFR (MDRD) Non-Af 13 L BUN/Creatinine Ratio 6.4 L Glucose 121 H Hemoglobin A1c Calcium 8.8 Magnesium Troponin I 0.08 H Triglycerides 114 Cholesterol 142 LDL Cholesterol 77 VLDL Cholesterol 23 HDL Cholesterol 42 TSH 11/15/17 08:00 WBC RBC Hgb Hct MCV MCH MCHC RDW RDW Differential Plt Count MPV Immature Gran % (Auto) Neut % (Auto) Lymph % (Auto) Mccracken % (Auto) Eos % (Auto) Baso % (Auto) Absolute Neuts (auto) Absolute Lymphs (auto) Total Counted Sodium Potassium Chloride Carbon Dioxide Anion Gap BUN Creatinine Estim Creat Clear Calc Est GFR (MDRD) Af Amer Est GFR (MDRD) Non-Af BUN/Creatinine Ratio Glucose Hemoglobin A1c Calcium Magnesium Troponin I 0.07 H Triglycerides Cholesterol LDL Cholesterol VLDL Cholesterol HDL Cholesterol TSH POC Glucose 11/15/17 11/15/17 11:06 06:36 POC Glucose 187 H 157 H Medical Necessity - Tobacco Use Smoking Status: Current every day smoker Assessment/Plan Active and Suspected Problems Pulmonary edema (Acute) Hyperkalemia (Acute) Atypical chest pain (Acute) Acute hypoxic respiratory failure (Acute) Pulmonary edema (Acute) 1. CP - EKG changes, prior CAD, trop bump. Consulted Magdaleno. 2. ESRD with missed dialysis and resultant SOB/pleural effusions - improved dramatically with dialysis. Potassium now normal. 3. T2DM - continue insulin regimen. A1C with good control. 4. HTN - moderately controlled. 5. Chronic hypoxic resp failure - on home o2 intermittently. Wean current dose. 6. Macrocytic anemia of chronic disease - no need for transfusion at this point. 7. Anx/Dep - home meds DVT ppx: heparin DC planning: pending further cardiac workup This patient was seen by Gael Vega PA-C under the supervision of Doctor Liz. <Anthony Hill - Last Filed: 11/15/17 12:19> - Physical Exam Vital Signs Temp Pulse Resp BP Pulse Ox 98.3 F 83 28 H 126/61 H 95 11/15/17 11:33 11/15/17 11:33 11/15/17 11:33 11/15/17 11:33 11/15/17 11:33 Oxygen Flow Rate (L/min) 2 Oxygen Delivery Method Nasal Cannula Weight: 87.7 kg Body Mass Index (BMI) 32.2 Finger Stick Blood Glucose 118 Intake and Output for Last 24 Hours 11/13/17 11/14/17 11/15/17 23:59 23:59 23:59 Output Total 150 / 150 6200 / 6200 Balance -150 / -150 -6200 / -6200 Laboratory Tests Past 24 Hrs 11/14/17 11/14/17 11/15/17 22:45 22:45 04:20 WBC RBC Hgb Hct MCV MCH MCHC RDW RDW Differential Plt Count MPV Immature Gran % (Auto) Neut % (Auto) Lymph % (Auto) Mccracken % (Auto) Eos % (Auto) Baso % (Auto) Absolute Neuts (auto) Absolute Lymphs (auto) Total Counted Sodium 137 Potassium 6.2 H* Chloride 109 H Carbon Dioxide 19.0 L Anion Gap 9 BUN 56 H Creatinine 6.73 H Estim Creat Clear Calc 10.09 Est GFR (MDRD) Af Amer 9 L Est GFR (MDRD) Non-Af 7 L BUN/Creatinine Ratio 8.3 L Glucose 157 H Hemoglobin A1c 5.3 Calcium 8.9 Magnesium 2.1 Troponin I 0.04 Triglycerides Cholesterol LDL Cholesterol VLDL Cholesterol HDL Cholesterol TSH 1.21 11/15/17 11/15/17 11/15/17 04:20 04:20 04:20 WBC 8.6 RBC 2.52 L Hgb 8.3 L Hct 25.7 L MCV 102.0 H MCH 32.9 H MCHC 32.3 RDW 16.1 H RDW Differential 57.7 H Plt Count 174 MPV 8.0 Immature Gran % (Auto) 0.200 Neut % (Auto) 78.8 H Lymph % (Auto) 12.8 L Mccracken % (Auto) 4.9 Eos % (Auto) 3.2 Baso % (Auto) 0.1 Absolute Neuts (auto) 6.8 Absolute Lymphs (auto) 1.10 Total Counted Not Reportable Sodium 139 Potassium 4.0 Chloride 104 Carbon Dioxide 27.0 Anion Gap 8 BUN 25 H Creatinine 3.88 H Estim Creat Clear Calc 17.50 Est GFR (MDRD) Af Amer 16 L Est GFR (MDRD) Non-Af 13 L BUN/Creatinine Ratio 6.4 L Glucose 121 H Hemoglobin A1c Calcium 8.8 Magnesium Troponin I 0.08 H Triglycerides 114 Cholesterol 142 LDL Cholesterol 77 VLDL Cholesterol 23 HDL Cholesterol 42 TSH 11/15/17 08:00 WBC RBC Hgb Hct MCV MCH MCHC RDW RDW Differential Plt Count MPV Immature Gran % (Auto) Neut % (Auto) Lymph % (Auto) Mccracken % (Auto) Eos % (Auto) Baso % (Auto) Absolute Neuts (auto) Absolute Lymphs (auto) Total Counted Sodium Potassium Chloride Carbon Dioxide Anion Gap BUN Creatinine Estim Creat Clear Calc Est GFR (MDRD) Af Amer Est GFR (MDRD) Non-Af BUN/Creatinine Ratio Glucose Hemoglobin A1c Calcium Magnesium Troponin I 0.07 H Triglycerides Cholesterol LDL Cholesterol VLDL Cholesterol HDL Cholesterol TSH POC Glucose 11/15/17 11/15/17 11:06 06:36 POC Glucose 187 H 157 H Assessment/Plan This patient was seen in conjunction with Gael Vega PA-C. I have independently interviewed and examined the patient and reviewed pertinent historical, laboratory, and other data. Please refer to Gael Carbajal for details of this patient's presentation, findings, and recommendations. I have reviewed Gael Vega PA-C note and concur with documented findings. In brief, patient is a 41-year-old lady with significant past medical history including CAD with previous stent placement, diabetes mellitus type 2 with complications including end-stage renal disease on dialysis, Htn, who presented with shortness of breath after missing dialysis. Patient also did experience some chest pain with slightly elevated troponin. Physical Examination: GENERAL: cooperative HEENT: Clear conjunctiva, NECK; supple, normal thyroid, CHEST: Diminished to auscultation bilaterally, HEART: Regular S1 S2, ABDOMEN: soft, non-tender, normoactive bowel sounds, RECTAL: deferred EXTREMITIES: No clubbing, no cyanosis. FINANCE EXECUTIVE: Awake, no lateralizing signs. SKIN: No Rash Assessment: 1. Acute diastolic congestive heart failure following admission of dialysis session 2. End-stage renal disease on hemodialysis 5. Diabetes mellitus type 2 4. Hypertension 5. Chest Pain with elevated troponin 6. Chronic hypoxic respiratory failure secondary on baseline home O2 7. Obesity with BMI of 31.2 8. Nephrotic syndrome secondary to diabetic nephropathy 9. Dyslipidemia: 10. GERD patient is on PPI 11. Depression with anxiety 12. Anemia secondary to anemia of end-stage renal disease 13. Tobacco dependence 14. Diagnosis of C. difficile colitis beginning of the month 15. Recent admission for suspected gram-negative pneumonia 16. DVT prophylaxisheparin Recommendations: 1. I have discussed the results of my overview and impressions with the patient 2. Options for management were reviewed Code Visit Inpatient E&M: 40037 Subs Hosp L3
--- NOTE | 2017-11-15 12:16 | CON.PCM_ITS ---
Problem List (1) Pulmonary edema Status: Acute (2) Atypical chest pain Status: Acute (3) CAD (coronary artery disease) Status: Chronic Qualifiers: (4) HTN (hypertension) Status: Chronic Qualifiers: (5) Nonischemic cardiomyopathy Status: Chronic Comment: With ejection fraction 45 - 50%; with angiographically normal coronary arteries 05/2013; follows up with Dr. Magdaleno (6) S/P repair of PDA (patent ductus arteriosus) Status: Chronic Comment: At young age (7) Hyperlipidemia Status: Chronic Qualifiers: Reason for Consult Date of Consultation: 11/15/17 Reason for Consultation: Chest pain, hypertension, diabetes, end-stage renal disease, LV dysfunction, possible coronary artery disease History of Present Illness: The patient is a 41 year old F, who I previously saw about 2 years ago, and have not seen since, with a history of diabetes, hypertension, hypercholesterolemia, end-stage renal disease due to diabetes on hemodialysis for about 2 years, history of ongoing tobacco use who supposedly quit about 2 weeks ago after a [id number] smoking history, who was admitted with respiratory distress, hypertensive emergency requiring emergent hemodialysis. Specifically the patient was doing well up until around yesterday when she developed shortness of breath, hypoxia, and substernal chest pain. She went [facility] where she was placed on BiPAP and transferred over to [facility]. She was found to be severely hypertensive with a blood pressure of 200/100 per the patient, hyperkalemia, and fluid overloaded. She underwent emergent hemodialysis which completely resolved her symptoms. It appears the patient may have missed her hemodialysis, possibly precipitating a hypertensive crisis. Her initial troponin was negative but then increase to 0.08, and now 0.07. Her initial EKG showed normal sinus rhythm, nonspecific anterolateral ST and T-wave changes in lateral ST flattening. Prior to that she denied any chest pain symptoms. In August 2017 the patient developed a pilonidal cyst on her posterior rectal area, and required extensive surgical debridement by Dr. caryn diego. In order to avoid fecal contamination the patient had a colostomy bag placed which will be reversed in the near future. She underwent a non-walking nuclear stress test in June 2017 which was negative for inducible ischemia. Prior to that in 2014 she underwent an echocardiogram which showed improvement of her LV function from 45-60%. The patient admits to abdominal fullness, but no lower extremity edema, exertional angina, or chest pain. She reports medical compliance, and is status post DOMINGA and single ovarian removal. The patient claims that in 2008 after a she developed necrotizing fasciitis and went into a coma at [facility]. She supposedly had a myocardial infarction at that time and required a coronary stent. Our records unfortunately are unavailable on the computer as of this writing, we will work to clarify this in the near future. Prior to this event last evening she denied any chest pain or heaviness while she is been on any dialysis, and denies any decrease in her exercise capacity. [] Past Medical History Allergies/Adverse Reactions: Allergies latex Allergy (Verified 11/05/17 08:34) Rash levofloxacin [From Levaquin] Adverse Reaction (Verified 11/05/17 08:34) PT CAN'T REMEMBER PT CAN'T REMEMBER metoclopramide HCl [From Reglan] Adverse Reaction (Verified 11/05/17 08:34) Nausea NSAIDS (Non-Steroidal Anti-Inflamma Adverse Reaction (Verified 11/05/17 08:34) kidney function oxycodone HCl [From Percocet] Adverse Reaction (Verified 11/05/17 08:34) HALLUCINATIONS Home Medications: Ambulatory Orders Medication Instructions Recorded Diltiazem HCl [Tiazac] 240 mg PO DAILY 07/10/15 Aspirin [Aspirin, Baby] 81 mg PO DAILY@0800 01/26/16 Calcium Acetate [Phoslo Gel Cap] 667 mg PO TIDCM 01/26/16 Ergocalciferol [Vitamin D] 50,000 unit PO FR 01/26/16 Insulin Aspart [Novolog Flexpen] 8 units SC TIDCM 01/26/16 Insulin Glargine,Hum.rec.anlog 5 unit SQ QHS 01/09/17 [Lantus] proMETHazine tablet [Phenergan 25 mg PO Q6H PRN PRN #10 tablet 03/06/17 tablet] Lisinopril 20 mg PO DAILY 03/29/17 Omeprazole Magnesium [Prilosec Otc] 20 mg PO DAILY 03/29/17 Sodium Bicarbonate 650 mg PO TUTHSA 03/29/17 Acetaminophen [Tylenol Tablet] 650 mg PO Q6H PRN PRN tablet 03/31/17 Carvedilol [Coreg (Beta Chang)] 25 mg PO BID 06/17/17 Fluoxetine HCl 40 mg PO DAILY 09/02/17 Vancomycin [Vancocin] 125 mg PO Q6H 11/05/17 hydrALAZINE [Apresoline] 25 mg PO TID 11/05/17 Cefdinir 300 mg PO QODAY #3 cap 11/08/17 Azithromycin [Zithromax] 500 mg PO Q24H 11/14/17 Hydrocodone/Acetaminophen 1 tab PO Q6H PRN 11/14/17 [Hydrocodone-Acetamin 5-325 mg] Past Medical History (Chronic Problems): Chronic Problems ESRD (end stage renal disease) on dialysis (Chronic) Decubitus ulcer, stage III (Chronic) CAD (coronary artery disease) (Chronic) Anemia, chronic disease (Chronic) Pilonidal cyst with abscess (Chronic) GABRIEL (obstructive sleep apnea) (Chronic) ESRD on dialysis (Chronic) Depression (Chronic) Anxiety (Chronic) HTN (hypertension) (Chronic) Nonischemic cardiomyopathy (Chronic) With ejection fraction 45 - 50%; with angiographically normal coronary arteries 05/2013; follows up with Dr. Magdaleno S/P repair of PDA (patent ductus arteriosus) (Chronic) At young age Diabetes mellitus type 1 (Chronic) Hyperlipidemia (Chronic) Obesity (BMI 30.0-34.9) (Chronic) Gastroparesis (Chronic) Surgical History: appendectomy, hysterectomy - and BSO, - - c-sections, L breast I+D for abscess, fistula placement LUE, L ankle surgery, appendectomy, PDA repair. Excision pilonidal cyst ulcer about 4 years ago. - *Family History Maternal History Items: Cancer, COPD, Diabetes, Hypertension, Renal Disease, Stroke Paternal History Items: Diabetes Sibling History Items: Cancer, Diabetes Smoking Status: Current every day smoker Review of Systems - Review of Systems General: Denies: Fever, Night Sweats, Fatigue Cardiovascular: Reports: Chest Discomfort, Chest Discomfort at Rest, Shortness of Breath, Shortness of Breath at Rest. Denies: Orthopnea, PND, Peripheral Edema, Palpitations, Lightheadedness, Dizziness, Near Syncope, Syncope Respiratory: Denies: Cough, Sputum Production, Hemoptysis Gastrointestinal: Denies: Hematemesis, Hematochezia, Melena Genitourinary: Denies: Dysuria, Hematuria Skin: Denies: Rash Subjectve: Patient laying down flat, no acute distress. Objective: Vital Signs Temp Pulse Resp BP Pulse Ox 98.3 F 83 28 H 126/61 H 95 11/15/17 11:33 11/15/17 11:33 11/15/17 11:33 11/15/17 11:33 11/15/17 11:33 Oxygen Flow Rate (L/min) 2 Oxygen Delivery Method Nasal Cannula Weight: 193 lb 5.526 oz Body Mass Index (BMI) 32.2 Finger Stick Blood Glucose 118 Intake and Output for Last 24 Hours 11/13/17 11/14/17 11/15/17 23:59 23:59 23:59 Output Total 150 / 150 6200 / 6200 Balance -150 / -150 -6200 / -6200 General: Awake, Alert, Oriented x 3 HEENT: PERRL, EOMI, Sclera Non Icteric Neck: Supple, Good ROM, No Lymph Node Enlargement Lungs: Clear to auscultation Cardiovascular: Regular Rhythm, Normal S1, Normal S2, No Murmurs, No Rubs, No Gallops Vascular: No Carotid Bruits, Normal Femoral Pulses, Normal Radial Pulses, Normal Dorsalis Pedal Pulse, Normal Posterior Tibial Pulses Abdomen: Bowel Sounds Present, Soft, Non Tender, No HSM, No Organomegaly Extremities: No Cyanosis, No Clubbing, No edema Neurological: No Focal Motor or Sensory Deficit 11/14/17 22:45: Sodium 137, Potassium 6.2 H*, Chloride 109 H, Carbon Dioxide 19.0 L, Anion Gap 9, BUN 56 H, Creatinine 6.73 H, Est GFR (MDRD) Af Amer 9 L, Est GFR (MDRD) Non-Af 7 L, BUN/Creatinine Ratio 8.3 L, Glucose 157 H, Calcium 8.9, Magnesium 2.1 11/14/17 22:45: Troponin I 0.04 11/15/17 04:20: Hemoglobin A1c 5.3 11/15/17 04:20: WBC 8.6, RBC 2.52 L, Hgb 8.3 L, Hct 25.7 L, MCV 102.0 H, MCH 32.9 H, MCHC 32.3, RDW 16.1 H, RDW Differential 57.7 H, Plt Count 174, MPV 8.0, Immature Gran % (Auto) 0.200, Neut % (Auto) 78.8 H, Lymph % (Auto) 12.8 L, Craven % (Auto) 4.9, Eos % (Auto) 3.2, Baso % (Auto) 0.1, Absolute Neuts (auto) 6.8, Total Counted Not Reportable 11/15/17 04:20: Sodium 139, Potassium 4.0, Chloride 104, Carbon Dioxide 27.0, Anion Gap 8, BUN 25 H, Creatinine 3.88 H, Est GFR (MDRD) Af Amer 16 L, Est GFR ( MDRD) Non-Af 13 L, BUN/Creatinine Ratio 6.4 L, Glucose 121 H, Calcium 8.8, Triglycerides 114, Cholesterol 142, LDL Cholesterol 77, VLDL Cholesterol 23, HDL Cholesterol 42 11/15/17 04:20: Troponin I 0.08 H 11/15/17 08:00: Troponin I 0.07 H Rhythm: EKG: ECHO: Stress Test: Cardiac Cath: PCI: CT Surgery: Holter monitor: EPS: PPM: CXR: Chest CT Scan: Assessment/Plan 1. Hypertensive crisis: The patient appears to have presented with hypertensive crisis possibly due to missing a dialysis event, requiring emergent hemodialysis and fluid removal. According to the patient her blood pressure was quite high, and her troponins are minimally elevated. She just underwent a noninvasive non-walking nuclear stress test in June 2017, and underwent a successful prolonged surgical debridement of a pilonidal cyst with colostomy placement in August 2017 without complications. At this point I would recommend a repeat echocardiogram to determine if there is been an interval change in her LV function since 2014. If her EF has decreased from 60% down to 40% I would have a low threshold for repeat catheterization. If however her LV function is normal, I would continue medical therapy with aggressive antihypertensive therapy going forward. I advised the patient to maintain hemodialysis schedule to avoid similar situations in the future. I recommend that she continue her baby aspirin, Coreg 25 mg p.o. twice daily, Cardizem CD 20-40 mg a day, increase her Isordil to 20 mg p.o. 3 times daily and titrate up from there, and continue hydralazine 25 mg p.o. 3 times daily. We can also go up on hydralazine as well to maintain adequate systolic pressures. In the patient's ejection fraction has remained normal, we will hold off on repeat stress testing at this time. 2. Tobacco cessation: The patient is a [id number] smoking history and alleges that she quit smoking about 2 weeks ago. I strongly encouraged her to discontinue all tobacco products. 3. 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 She reports she has not had a repeat catheterization since that time. We will try to obtain those old records from our office or from [facility] to confirm her coronary disease. According to our office notes, her last catheterization was in 2012 and showed no significant disease, moderate LV dysfunction, and no evidence of stenting at that time, and no need for stenting at that time as well. 4. Hyperlipidemia: Patient was on atorvastatin, but does not appear to be on statins at this time. We will check with patient why this is, but would recommend some sort of cholesterol management to drive her LDL less than 70. 5. Thank you very much for the opportunity to participate in the cardiac care of your patient. Consultation time took place between 11 AM and 11:35 AM. Code Visit Inpatient E&M: 92762 Init Hosp L2
[2017-11-15] MEDS: Isosorbide DN 20 MG Tablet PO ×2 (13:38→22:38)
[2017-11-15] MEDS: proMETHazine 25 MG/ML Syringe 12.5 MG IV (13:42)
--- NOTE | 2017-11-15 16:06 | NURSING ---
patient care, med administration, and documentation by Noah Nunez, student nurse, done under the supervision of this RN.
[2017-11-15 16:46] LABS: Bedside Glucose 190 mg/dL (70-110)
--- NOTE | 2017-11-15 17:00 | EKG12_ITS ---
Test Reason : RHYTHM CHANGE Blood Pressure : / mmHG Vent. Rate : 099 BPM Atrial Rate : 099 BPM P-R Int : 136 ms QRS Dur : 086 ms QT Int : 368 ms P-R-T Axes : 055 053 180 degrees QTc Int : 472 ms Normal sinus rhythm ST & T wave abnormality, consider inferolateral ischemia Prolonged QT Abnormal ECG When compared with ECG of 14-NOV-2017 22:57, MANUAL COMPARISON REQUIRED, DATA IS UNCONFIRMED Confirmed by DIVINA BEASLEY, SUSI ([id number]), editorial assistant SHANIA SOLITARIO ([id number] on 11/17/2017 1:25:42 PM Referred By: SOLEDAD Confirmed By:SUSI MURCIA MD
[2017-11-15] MEDS: Ondansetron 4 MG/2 ML Vial IV (21:02)
[2017-11-15 22:55] LABS: Bedside Glucose 187 mg/dL (70-110)
[2017-11-16] VITALS (11 sets, daily range): BP systolic 125–129; BP diastolic 55–66; PULSE 75–85; RESP 16–24; TEMP 36.8–37; O2SAT 86–98
[2017-11-16] MEDS: Morphine 2 MG/ML Syringe IV ×2 (02:53→12:55)
[2017-11-16] MEDS: 0.9% NaCl Peripheral Flush Adult/Peds IV ×2 (02:54→12:57)
[2017-11-16] MEDS: hydrALAZINE 25 MG Tablet PO ×2 (05:36→14:48)
[2017-11-16] MEDS: Isosorbide DN 20 MG Tablet PO ×2 (05:36→14:49)
[2017-11-16 06:56] LABS: Bedside Glucose 95 mg/dL (70-110)
[2017-11-16] MEDS: HYDROcodone Bitartrate/Apap 5/325 Tablet PO (08:08)
[2017-11-16] MEDS: Aspirin 81 MG TAB.CHEW PO (08:08)
[2017-11-16] MEDS: Calcium Acetate 667 MG Capsule PO (08:46)
--- NOTE | 2017-11-16 09:07 | PCM.DC ---
- Discharge Diagnoses Current Active Problems: Current Active and Chronic Problems Pulmonary edema (Acute) Hyperkalemia (Acute) Atypical chest pain (Acute) Acute hypoxic respiratory failure (Acute) Pulmonary edema (Acute) You will use the following diet at home:: Cardiac, Renal (restricted protein/sodium) Discharge Activity: Return to Normal Activity Call your doctor if you observe: Shortness of breath, Dizziness, Fainting spells, Chest pain Allergies/Adverse Reactions: Allergies latex Allergy (Verified 11/05/17 08:34) Rash levofloxacin [From Levaquin] Adverse Reaction (Verified 11/05/17 08:34) PT CAN'T REMEMBER PT CAN'T REMEMBER metoclopramide HCl [From Reglan] Adverse Reaction (Verified 11/05/17 08:34) Nausea NSAIDS (Non-Steroidal Anti-Inflamma Adverse Reaction (Verified 11/05/17 08:34) kidney function oxycodone HCl [From Percocet] Adverse Reaction (Verified 11/05/17 08:34) HALLUCINATIONS Medications to take at Discharge Diltiazem HCl [Tiazac] 240 mg PO DAILY 07/10/15 Aspirin [Aspirin, Baby] 81 mg PO DAILY@0800 01/26/16 Calcium Acetate [Phoslo Gel Cap] 667 mg PO TIDCM 01/26/16 Ergocalciferol [Vitamin D] 50,000 unit PO FR 01/26/16 Insulin Aspart [Novolog Flexpen] 8 units SC TIDCM 01/26/16 Insulin Glargine,Hum.rec.anlog [Lantus] 5 unit SQ QHS 01/09/17 proMETHazine tablet [Phenergan tablet] 25 mg PO Q6H PRN PRN #10 tablet 03/06/17 Lisinopril 20 mg PO DAILY 03/29/17 Omeprazole Magnesium [Prilosec Otc] 20 mg PO DAILY 03/29/17 Sodium Bicarbonate 650 mg PO TUTHSA 03/29/17 Acetaminophen [Tylenol Tablet] 650 mg PO Q6H PRN PRN tablet 03/31/17 Carvedilol [Coreg (Beta Chang)] 25 mg PO BID 06/17/17 Fluoxetine HCl 40 mg PO DAILY 09/02/17 hydrALAZINE [Apresoline] 25 mg PO TID 11/05/17 Hydrocodone/Acetaminophen [Hydrocodone-Acetamin 5-325 mg] 1 tab PO Q6H PRN 11/14/17 Atorvastatin Calcium 10 mg PO QHS #30 tab 11/16/17 Isosorbide DN [Isordil] 20 mg PO TID #90 tab 11/16/17 The following prescriptions were given: Atorvastatin Calcium 10 mg PO QHS #30 tab Isosorbide DN [Isordil] 20 mg PO TID #90 tab Primary Care Physician: Christopher Foy MD [Primary Care Provider] - Please follow up with your Primary Care Physician in: 1 Week Please Follow Up With: Maria Isabel Valdivia MD When: As scheduled Please Follow Up With: Mark Magdaleno MD When: 6 Months Proposed Discharge Date: 11/16/17
--- NOTE | 2017-11-16 09:11 | DCINST_ITS ---
- Discharge Diagnoses Current Active Problems: Current Active and Chronic Problems Pulmonary edema (Acute) Hyperkalemia (Acute) Atypical chest pain (Acute) Acute hypoxic respiratory failure (Acute) Pulmonary edema (Acute) You will use the following diet at home:: Cardiac, Renal (restricted protein/ sodium) Discharge Activity: Return to Normal Activity Call your doctor if you observe: Shortness of breath, Dizziness, Fainting spells , Chest pain Allergies/Adverse Reactions: Allergies latex Allergy (Verified 11/05/17 08:34) Rash levofloxacin [From Levaquin] Adverse Reaction (Verified 11/05/17 08:34) PT CAN'T REMEMBER PT CAN'T REMEMBER metoclopramide HCl [From Reglan] Adverse Reaction (Verified 11/05/17 08:34) Nausea NSAIDS (Non-Steroidal Anti-Inflamma Adverse Reaction (Verified 11/05/17 08:34) kidney function oxycodone HCl [From Percocet] Adverse Reaction (Verified 11/05/17 08:34) HALLUCINATIONS Medications to take at Discharge Diltiazem HCl [Tiazac] 240 mg PO DAILY 07/10/15 Aspirin [Aspirin, Baby] 81 mg PO DAILY@0800 01/26/16 Calcium Acetate [Phoslo Gel Cap] 667 mg PO TIDCM 01/26/16 Ergocalciferol [Vitamin D] 50,000 unit PO FR 01/26/16 Insulin Aspart [Novolog Flexpen] 8 units SC TIDCM 01/26/16 Insulin Glargine,Hum.rec.anlog [Lantus] 5 unit SQ QHS 01/09/17 proMETHazine tablet [Phenergan tablet] 25 mg PO Q6H PRN PRN #10 tablet 03/06/17 Lisinopril 20 mg PO DAILY 03/29/17 Omeprazole Magnesium [Prilosec Otc] 20 mg PO DAILY 03/29/17 Sodium Bicarbonate 650 mg PO TUTHSA 03/29/17 Acetaminophen [Tylenol Tablet] 650 mg PO Q6H PRN PRN tablet 03/31/17 Carvedilol [Coreg (Beta Chang)] 25 mg PO BID 06/17/17 Fluoxetine HCl 40 mg PO DAILY 09/02/17 hydrALAZINE [Apresoline] 25 mg PO TID 11/05/17 Hydrocodone/Acetaminophen [Hydrocodone-Acetamin 5-325 mg] 1 tab PO Q6H PRN 11/14 Atorvastatin Calcium 10 mg PO QHS #30 tab 11/16/17 Isosorbide DN [Isordil] 20 mg PO TID #90 tab 11/16/17 The following prescriptions were given: Atorvastatin Calcium 10 mg PO QHS #30 tab Isosorbide DN [Isordil] 20 mg PO TID #90 tab Primary Care Physician: Christopher Foy MD [Primary Care Provider] - Please follow up with your Primary Care Physician in: 1 Week Please Follow Up With: Maria Isabel Valdivia MD When: As scheduled Please Follow Up With: Mark Magdaleno MD When: 6 Months Proposed Discharge Date: 11/16/17
--- NOTE | 2017-11-16 09:13 | PCM.DC.SUM ---
<Fiorella Gan - Last Filed: 11/16/17 09:41> Discharge Date and Diagnosis Date of Admission: 11/14/17 Date of Discharge: 11/16/17 - Primary Discharge Diagnosis Active and Suspected Problems 1. Acute diastolic CHF secondary to ESRD with missed dialysis session 2. Chest pain, elevated troponin 3. Hyperkalemia 4. ESRD 5. Acute on chronic hypoxic respiratory failure, secondary to #1 - Secondary Discharge Diagnosis Chronic Problems ESRD (end stage renal disease) on dialysis (Chronic) Decubitus ulcer, stage III (Chronic) CAD (coronary artery disease) (Chronic) Anemia, chronic disease (Chronic) Pilonidal cyst with abscess (Chronic) GABRIEL (obstructive sleep apnea) (Chronic) ESRD on dialysis (Chronic) Depression (Chronic) Anxiety (Chronic) HTN (hypertension) (Chronic) Nonischemic cardiomyopathy (Chronic) With ejection fraction 45 - 50%; with angiographically normal coronary arteries 05/2013; follows up with Dr. Magdaleno S/P repair of PDA (patent ductus arteriosus) (Chronic) At young age Diabetes mellitus type 1 (Chronic) Hyperlipidemia (Chronic) Obesity (BMI 30.0-34.9) (Chronic) Gastroparesis (Chronic) Hospital Course and Treatment Imaging Results: Diagnostic Data Chest X-Ray 11/14/17 22:22 IMPRESSION: Worsening of prominent bilateral diffuse infiltrates. Electronically Signed: James Kahn MD at 23:34 EDT , Service support , Consultations 11/15/17 06:58 Consult: Onc/Wound/treatment technician Routine Comment: Reason for Consult:: Cyst to coccyx, s/p surgery, pt see outpt wound center Dr. Magdaleno- Cardiology Dr. Valdivia- Nephrology Operations: None Procedures: 2-D Echocardiogram, Dialysis Summary of Care Provided: The patient is a 41 year old F admitted 11/14/17 due to shortness of breath. Patient has end-stage renal disease and was noted to have missed dialysis session. Chest x-ray on admission with prominent bilateral infiltrates. Acute diastolic CHF with acute on chronic hypoxic respiratory failure improved with dialysis. Hyperkalemia also resolved with dialysis. Patient was noted to have elevated troponin with intermittent chest pain. Cardiology consulted. Patient recently had a nuclear stress test June 2017 which was unremarkable. Patient will continue medical management at this time. Her Isordil was increased to 20 mg 3 times daily. Hypertensive crisis resolved with dialysis and increase in Isordil. She will follow with cardiology as outpatient in 6 months. Echocardiogram completed which showed an ejection fraction of 45%, compared to echo 07/19/2017, no appreciable changes noted. Patient had a previous cardiac catheterization in 2012 which showed normal coronary arteries. Patient was started on atorvastatin 10 mg nightly for hyperlipidemia. Patient's other past medical history includes type 2 diabetes mellitus, obesity, GERD, depression, anxiety, anemia of chronic disease, tobacco dependence, history of C. difficile, GABRIEL. Patient has home oxygen available and will continue supplemental oxygen. Encouraged her to continue dialysis schedule as ordered. General: Alert, Oriented x3, Cooperative HEENT: Atraumatic, PERRLA, EOMI, Normocephalic Neck: Supple, No JVD, Negative Carotid Bruits Lungs: Normal air movement, clear to auscultation Cardiovascular: Regular rate, No murmurs Abdomen: Bowel Sounds Present, Soft, Non Tender Extremities: No edema, Capillary Refill Less than 3 Seconds Skin: No rashes, No breakdown Musculoskeletal: No Tenderness to Palpation of Joints or Extremities Neurological: Cranial nerves II-XII grossly intact Psych/Mental Status: Normal Affect, Appropriate Patient seen and examined prior to discharge. Physical assessment as noted above. Patient is stable for discharge with further follow-up with primary care physician, nephrology and cardiology. This patient was seen by SATNAM Mcgraw under the supervision of Dr. Hill. Discharge Diet: Low fat/ Low Cholesterol, Renal Diet Discharge Activity: Return to Normal Activity Call your doctor if you observe: Shortness of breath, Dizziness, Fainting spells, Chest pain Home Medications: Medications to take at Discharge Diltiazem HCl [Tiazac] 240 mg PO DAILY 07/10/15 Aspirin [Aspirin, Baby] 81 mg PO DAILY@0800 01/26/16 Calcium Acetate [Phoslo Gel Cap] 667 mg PO TIDCM 01/26/16 Ergocalciferol [Vitamin D] 50,000 unit PO FR 01/26/16 Insulin Aspart [Novolog Flexpen] 8 units SC TIDCM 01/26/16 Insulin Glargine,Hum.rec.anlog [Lantus] 5 unit SQ QHS 01/09/17 proMETHazine tablet [Phenergan tablet] 25 mg PO Q6H PRN PRN #10 tablet 03/06/17 Lisinopril 20 mg PO DAILY 03/29/17 Omeprazole Magnesium [Prilosec Otc] 20 mg PO DAILY 03/29/17 Sodium Bicarbonate 650 mg PO TUTHSA 03/29/17 Acetaminophen [Tylenol Tablet] 650 mg PO Q6H PRN PRN tablet 03/31/17 Carvedilol [Coreg (Beta Chang)] 25 mg PO BID 06/17/17 Fluoxetine HCl 40 mg PO DAILY 09/02/17 hydrALAZINE [Apresoline] 25 mg PO TID 11/05/17 Hydrocodone/Acetaminophen [Hydrocodone-Acetamin 5-325 mg] 1 tab PO Q6H PRN 11/14/17 Atorvastatin Calcium 10 mg PO QHS #30 tab 11/16/17 Isosorbide DN [Isordil] 20 mg PO TID #90 tab 11/16/17 Following Prescrptions Were Given to Patient: Atorvastatin Calcium 10 mg PO QHS #30 tab Isosorbide DN [Isordil] 20 mg PO TID #90 tab Primary Care Physician: Christopher Foy MD [Primary Care Provider] - Please follow up with your Primary Care Physician in: 1 Week Please Follow Up With: Maria Isabel Valdivia MD When: As scheduled Please Follow Up With: aMrk Magdaleno MD When: 6 Months Disposition: Home Minutes spent on discharge:: 35 Patient Condition:: Stable Medical Necessity - Tobacco Use Smoking Status: Current every day smoker Meaningful Use Info Meaningful Use Diagnoses (Choose all that apply): CHF - CHF CAM/ARB ordered at discharge?: Yes Documented LVEF (%): 45 <Anthony Hill - Last Filed: 11/16/17 11:07> Discharge Date and Diagnosis - Secondary Discharge Diagnosis Chronic Problems ESRD (end stage renal disease) on dialysis (Chronic) Decubitus ulcer, stage III (Chronic) CAD (coronary artery disease) (Chronic) Anemia, chronic disease (Chronic) Pilonidal cyst with abscess (Chronic) GABRIEL (obstructive sleep apnea) (Chronic) ESRD on dialysis (Chronic) Depression (Chronic) Anxiety (Chronic) HTN (hypertension) (Chronic) Nonischemic cardiomyopathy (Chronic) With ejection fraction 45 - 50%; with angiographically normal coronary arteries 05/2013; follows up with Dr. Magdaleno S/P repair of PDA (patent ductus arteriosus) (Chronic) At young age Diabetes mellitus type 1 (Chronic) Hyperlipidemia (Chronic) Obesity (BMI 30.0-34.9) (Chronic) Gastroparesis (Chronic) Hospital Course and Treatment Consultations 11/15/17 06:58 Consult: Onc/Wound/treatment technician Routine Comment: Reason for Consult:: Cyst to coccyx, s/p surgery, pt see outpt wound center Summary of Care Provided: This patient was seen in conjunction with SATNAM Mcgraw. I have independently interviewed and examined the patient and reviewed pertinent historical, laboratory, and other data. Please refer to SATNAM Mcgraw note for details of this patient's presentation, findings, and recommendations. I have reviewed SATNAM Mcgraw note and concur with documented findings. In brief, patient is a 41-year-old lady with significant past medical history including CAD with previous stent placement, diabetes mellitus type 2 with complications including end-stage renal disease on dialysis, hypertension, who presented with shortness of breath after missing dialysis. Patient also did experience some chest pain with slightly elevated troponin. Physical Examination: GENERAL: cooperative HEENT: Clear conjunctiva, NECK; supple, normal thyroid, CHEST: Diminished to auscultation bilaterally, HEART: Regular S1 S2, ABDOMEN: soft, non-tender, normoactive bowel sounds, RECTAL: deferred EXTREMITIES: No clubbing, no cyanosis. MARKET PRESIDENT: Awake, no lateralizing signs. SKIN: No Rash Assessment: 1. Acute diastolic congestive heart failure following admission of dialysis session 2. End-stage renal disease on hemodialysis 5. Diabetes mellitus type 2 4. Hypertensive crisis 5. Chest Pain with elevated troponin 6. Chronic hypoxic respiratory failure secondary on baseline home O2 7. Obesity with BMI of 31.2 8. Nephrotic syndrome secondary to diabetic nephropathy 9. Dyslipidemia: 10. GERD patient is on PPI 11. Depression with anxiety 12. Anemia secondary to anemia of end-stage renal disease 13. Tobacco dependence 14. Diagnosis of C. difficile colitis beginning of the month 15. Recent admission for suspected gram-negative pneumonia 16. DVT prophylaxisheparin Hospital course: As elicited above by Fiorella Gan Discharge 45 minutes Code Visit Inpatient E&M: 41102 Disch Hosp
--- NOTE | 2017-11-16 09:41 | DS.PCM_ITS ---
<Fiorella Gan - Last Filed: 11/16/17 09:41> Discharge Date and Diagnosis Date of Admission: 11/14/17 Date of Discharge: 11/16/17 - Primary Discharge Diagnosis Active and Suspected Problems 1. Acute diastolic CHF secondary to ESRD with missed dialysis session 2. Chest pain, elevated troponin 3. Hyperkalemia 4. ESRD 5. Acute on chronic hypoxic respiratory failure, secondary to #1 - Secondary Discharge Diagnosis Chronic Problems ESRD (end stage renal disease) on dialysis (Chronic) Decubitus ulcer, stage III (Chronic) CAD (coronary artery disease) (Chronic) Anemia, chronic disease (Chronic) Pilonidal cyst with abscess (Chronic) GABRIEL (obstructive sleep apnea) (Chronic) ESRD on dialysis (Chronic) Depression (Chronic) Anxiety (Chronic) HTN (hypertension) (Chronic) Nonischemic cardiomyopathy (Chronic) With ejection fraction 45 - 50%; with angiographically normal coronary arteries 05/2013; follows up with Dr. Magdaleno S/P repair of PDA (patent ductus arteriosus) (Chronic) At young age Diabetes mellitus type 1 (Chronic) Hyperlipidemia (Chronic) Obesity (BMI 30.0-34.9) (Chronic) Gastroparesis (Chronic) Hospital Course and Treatment Imaging Results: Diagnostic Data Chest X-Ray 11/14/17 22:22 IMPRESSION: Worsening of prominent bilateral diffuse infiltrates. Electronically Signed: James Kahn MD at 23:34 EDT , Service support , Consultations 11/15/17 06:58 Consult: Onc/Wound/energy economist Routine Comment: Reason for Consult:: Cyst to coccyx, s/p surgery, pt see outpt wound center Dr. Magdaleno- Cardiology Dr. Valdivia- Nephrology Operations: None Procedures: 2-D Echocardiogram, Dialysis Summary of Care Provided: The patient is a 41 year old F admitted 11/14/17 due to shortness of breath. Patient has end-stage renal disease and was noted to have missed dialysis session. Chest x-ray on admission with prominent bilateral infiltrates. Acute diastolic CHF with acute on chronic hypoxic respiratory failure improved with dialysis. Hyperkalemia also resolved with dialysis. Patient was noted to have elevated troponin with intermittent chest pain. Cardiology consulted. Patient recently had a nuclear stress test June 2017 which was unremarkable. Patient will continue medical management at this time. Her Isordil was increased to 20 mg 3 times daily. Hypertensive crisis resolved with dialysis and increase in Isordil. She will follow with cardiology as outpatient in 6 months. Echocardiogram completed which showed an ejection fraction of 45%, compared to echo 07/19/2017, no appreciable changes noted. Patient had a previous cardiac catheterization in 2012 which showed normal coronary arteries. Patient was started on atorvastatin 10 mg nightly for hyperlipidemia. Patient 's other past medical history includes type 2 diabetes mellitus, obesity, GERD, depression, anxiety, anemia of chronic disease, tobacco dependence, history of C. difficile, GABRIEL. Patient has home oxygen available and will continue supplemental oxygen. Encouraged her to continue dialysis schedule as ordered. General: Alert, Oriented x3, Cooperative HEENT: Atraumatic, PERRLA, EOMI, Normocephalic Neck: Supple, No JVD, Negative Carotid Bruits Lungs: Normal air movement, clear to auscultation Cardiovascular: Regular rate, No murmurs Abdomen: Bowel Sounds Present, Soft, Non Tender Extremities: No edema, Capillary Refill Less than 3 Seconds Skin: No rashes, No breakdown Musculoskeletal: No Tenderness to Palpation of Joints or Extremities Neurological: Cranial nerves II-XII grossly intact Psych/Mental Status: Normal Affect, Appropriate Patient seen and examined prior to discharge. Physical assessment as noted above. Patient is stable for discharge with further follow-up with primary care physician, nephrology and cardiology. This patient was seen by SATNAM Mcgraw under the supervision of Dr. Hill. Discharge Diet: Low fat/ Low Cholesterol, Renal Diet Discharge Activity: Return to Normal Activity Call your doctor if you observe: Shortness of breath, Dizziness, Fainting spells , Chest pain Home Medications: Medications to take at Discharge Diltiazem HCl [Tiazac] 240 mg PO DAILY 07/10/15 Aspirin [Aspirin, Baby] 81 mg PO DAILY@0800 01/26/16 Calcium Acetate [Phoslo Gel Cap] 667 mg PO TIDCM 01/26/16 Ergocalciferol [Vitamin D] 50,000 unit PO FR 01/26/16 Insulin Aspart [Novolog Flexpen] 8 units SC TIDCM 01/26/16 Insulin Glargine,Hum.rec.anlog [Lantus] 5 unit SQ QHS 01/09/17 proMETHazine tablet [Phenergan tablet] 25 mg PO Q6H PRN PRN #10 tablet 03/06/17 Lisinopril 20 mg PO DAILY 03/29/17 Omeprazole Magnesium [Prilosec Otc] 20 mg PO DAILY 03/29/17 Sodium Bicarbonate 650 mg PO TUTHSA 03/29/17 Acetaminophen [Tylenol Tablet] 650 mg PO Q6H PRN PRN tablet 03/31/17 Carvedilol [Coreg (Beta Chang)] 25 mg PO BID 06/17/17 Fluoxetine HCl 40 mg PO DAILY 09/02/17 hydrALAZINE [Apresoline] 25 mg PO TID 11/05/17 Hydrocodone/Acetaminophen [Hydrocodone-Acetamin 5-325 mg] 1 tab PO Q6H PRN 11/14 Atorvastatin Calcium 10 mg PO QHS #30 tab 11/16/17 Isosorbide DN [Isordil] 20 mg PO TID #90 tab 11/16/17 Following Prescrptions Were Given to Patient: Atorvastatin Calcium 10 mg PO QHS #30 tab Isosorbide DN [Isordil] 20 mg PO TID #90 tab Primary Care Physician: Christopher Foy MD [Primary Care Provider] - Please follow up with your Primary Care Physician in: 1 Week Please Follow Up With: Maria Isabel Valdivia MD When: As scheduled Please Follow Up With: Mark Magdaleno MD When: 6 Months Disposition: Home Minutes spent on discharge:: 35 Patient Condition:: Stable Medical Necessity - Tobacco Use Smoking Status: Current every day smoker Meaningful Use Info Meaningful Use Diagnoses (Choose all that apply): CHF - CHF CAM/ARB ordered at discharge?: Yes Documented LVEF (%): 45 <Anthony Hill - Last Filed: 11/16/17 11:07> Discharge Date and Diagnosis - Secondary Discharge Diagnosis Chronic Problems ESRD (end stage renal disease) on dialysis (Chronic) Decubitus ulcer, stage III (Chronic) CAD (coronary artery disease) (Chronic) Anemia, chronic disease (Chronic) Pilonidal cyst with abscess (Chronic) GABRIEL (obstructive sleep apnea) (Chronic) ESRD on dialysis (Chronic) Depression (Chronic) Anxiety (Chronic) HTN (hypertension) (Chronic) Nonischemic cardiomyopathy (Chronic) With ejection fraction 45 - 50%; with angiographically normal coronary arteries 05/2013; follows up with Dr. Magdaleno S/P repair of PDA (patent ductus arteriosus) (Chronic) At young age Diabetes mellitus type 1 (Chronic) Hyperlipidemia (Chronic) Obesity (BMI 30.0-34.9) (Chronic) Gastroparesis (Chronic) Hospital Course and Treatment Consultations 11/15/17 06:58 Consult: Onc/Wound/energy economist Routine Comment: Reason for Consult:: Cyst to coccyx, s/p surgery, pt see outpt wound center Summary of Care Provided: This patient was seen in conjunction with SATNAM Mcgraw. I have independently interviewed and examined the patient and reviewed pertinent historical, laboratory, and other data. Please refer to VIRGIL Mcgraw note for details of this patient's presentation, findings, and recommendations. I have reviewed SATNAM Mcgraw note and concur with documented findings. In brief, patient is a 41-year-old lady with significant past medical history including CAD with previous stent placement, diabetes mellitus type 2 with complications including end-stage renal disease on dialysis, hypertension, who presented with shortness of breath after missing dialysis. Patient also did experience some chest pain with slightly elevated troponin. Physical Examination: GENERAL: cooperative HEENT: Clear conjunctiva, NECK; supple, normal thyroid, CHEST: Diminished to auscultation bilaterally, HEART: Regular S1 S2, ABDOMEN: soft, non-tender, normoactive bowel sounds, RECTAL: deferred EXTREMITIES: No clubbing, no cyanosis. ADMINISTRATIVE DIRECTOR: Awake, no lateralizing signs. SKIN: No Rash Assessment: 1. Acute diastolic congestive heart failure following admission of dialysis session 2. End-stage renal disease on hemodialysis 5. Diabetes mellitus type 2 4. Hypertensive crisis 5. Chest Pain with elevated troponin 6. Chronic hypoxic respiratory failure secondary on baseline home O2 7. Obesity with BMI of 31.2 8. Nephrotic syndrome secondary to diabetic nephropathy 9. Dyslipidemia: 10. GERD patient is on PPI 11. Depression with anxiety 12. Anemia secondary to anemia of end-stage renal disease 13. Tobacco dependence 14. Diagnosis of C. difficile colitis beginning of the month 15. Recent admission for suspected gram-negative pneumonia 16. DVT prophylaxis?heparin Hospital course: As elicited above by Fiorella Gan Discharge 45 minutes Code Visit Inpatient E&M: 68251 Disch Hosp
--- NOTE | 2017-11-16 10:13 | PCM.PN.REN ---
Subjective: Breathing is okay. No nausea No vomiting - Physical Exam General: Alert, Oriented x3 HEENT: Atraumatic Oral: Moist Mucosa Neck: Supple, No JVD Lungs: Clear to auscultation, Normal air movement, No rhonchi, No wheeze Cardiovascular: Regular rate, Regular Rhythm, Normal S1, Normal S2 Abdomen: Bowel Sounds Present, Soft, Non Tender Extremities: No clubbing, No cyanosis, No edema Skin: No rashes Musculoskeletal: No Tenderness to Palpation of Joints or Extremities Lymphatic: No Cervical, Supraclavicular, or Inguinal Adenopathy Neurological: Cranial nerves II-XII grossly intact, Neuro grossly intact Psych/Mental Status: Normal Affect Vital Signs Temp Pulse Resp BP Pulse Ox 98.3 F 80 24 H 126/66 H 93 11/16/17 05:31 11/16/17 06:53 11/16/17 05:31 11/16/17 05:31 11/16/17 07:05 Oxygen Flow Rate (L/min) 2 Oxygen Delivery Method Nasal Cannula Weight: 87.8 kg Body Mass Index (BMI) 32.2 Finger Stick Blood Glucose 118 Intake and Output for Last 24 Hours 11/14/17 11/15/17 11/16/17 23:59 23:59 23:59 Intake Total 750 / 750 30 / 30 Output Total 150 / 150 6200 / 6200 Balance -150 / -150 -5450 / -5450 30 / 30 Laboratory Tests Past 24 Hrs 11/15/17 14:20 Troponin I 0.07 H POC Glucose 11/16/17 11/15/17 11/15/17 06:50 22:36 16:32 POC Glucose 95 187 H 190 H 11/15/17 11:06 POC Glucose 187 H Medical Necessity - Tobacco Use Smoking Status: Current every day smoker Assessment/Plan 1- ESRD on TTS schedule of HD. Patient goes to [facility] Missed HD session on 11/14 Patient presented with acute hypoxemic RF due to pulmonary edema and hyperkalemia She was dialyzed urgently on admission with 3 L UF, 1 K for 1 hour and then 2 K for the rest of treatment HD session today: BQ 400 BQ 600 UF 2-3 L as tolerated Next session is on 11/18 URR is 70% and more 2- HTN: BP is well controlled . continue the same BP meds 3- Hyperkalemia . due to missing HD session. resolved with HD session. Continue renal diet 4- Acute hypoxemic RF due to pulmonary edema Improved with HD and UF Now on NC 2 l/m Keep O>I with UF. Okay to discharge patient today after HD session Maria Isabel Valdivia MD [phone]
--- NOTE | 2017-11-16 10:13 | CASEMGMT ---
Discharge orders placed for pt at this time. D/C instructions with resumption of care order faxed to [facility] at this time. Call placed to Sera at [facility] to make her aware of pt discharge today and faxed paperwork, voices understanding. Monik TEJADA CM
--- NOTE | 2017-11-16 10:50 | PCM.PN.CARD ---
Subjectve: Patient doing much better today, blood pressure much better controlled. Tolerating increased dose of antihypertensive medications. No further chest pain. Telemetry negative. Objective: Vital Signs Temp Pulse Resp BP Pulse Ox 98.3 F 80 24 H 126/66 H 93 11/16/17 05:31 11/16/17 06:53 11/16/17 05:31 11/16/17 05:31 11/16/17 07:05 Oxygen Flow Rate (L/min) 2 Oxygen Delivery Method Nasal Cannula Weight: 193 lb 9.054 oz Body Mass Index (BMI) 32.2 Finger Stick Blood Glucose 118 Intake and Output for Last 24 Hours 11/14/17 11/15/17 11/16/17 23:59 23:59 23:59 Intake Total 750 / 750 Output Total 150 / 150 6200 / 6200 Balance -150 / -150 -5450 / -5450 General: Awake, Alert, Oriented x 3 HEENT: PERRL, EOMI, Sclera Non Icteric Neck: Supple, Good ROM, No Lymph Node Enlargement Lungs: Clear to auscultation Cardiovascular: Regular Rhythm, Normal S1, Normal S2, No Murmurs, No Rubs, No Gallops Vascular: No Carotid Bruits, Normal Femoral Pulses, Normal Radial Pulses, Normal Dorsalis Pedal Pulse, Normal Posterior Tibial Pulses Abdomen: Bowel Sounds Present, Soft, Non Tender, No HSM, No Organomegaly Extremities: No Cyanosis, No Clubbing, No edema Neurological: No Focal Motor or Sensory Deficit 11/15/17 14:20: Troponin I 0.07 H Rhythm: EKG: ECHO: Stress Test: Cardiac Cath: PCI: CT Surgery: Holter monitor: EPS: PPM: CXR: Chest CT Scan: Medical Necessity - Tobacco Use Smoking Status: Current every day smoker Assessment/Plan 1. Hypertensive crisis: The patient appears to have presented with hypertensive crisis possibly due to missing a dialysis event, requiring emergent hemodialysis and fluid removal on day of admission. According to the patient her blood pressure was quite high, and her troponins are minimally elevated. She just underwent a noninvasive non-walking nuclear stress test in June 2017, and underwent a successful prolonged surgical debridement of a pilonidal cyst with colostomy placement in August 2017 without complications. At this point I would recommend a repeat echocardiogram to determine if there is been an interval change in her LV function since 2014. Her repeat echocardiogram demonstrates mild to moderate global LV dysfunction with an EF around 45%. She is tolerating her medicines and antihypertensive adjustments fairly well. I advised the patient to maintain hemodialysis schedule to avoid similar situations in the future. I recommend that she continue her baby aspirin, Coreg 25 mg p.o. twice daily, Cardizem CD 20-40 mg a day, increase her Isordil to 20 mg p.o. 3 times daily and titrate up from there, and continue hydralazine 25 mg p.o. 3 times daily. We can also go up on hydralazine as well to maintain adequate systolic pressures. at this point we will hold off on repeat catheterization at this time unless and until the patient has recurrent anginal symptoms despite maximal medical therapy. The patient may be discharged home and follow-up with me going forward. 2. Tobacco cessation: The patient is a [id number] smoking history and alleges that she quit smoking about 2 weeks ago. I strongly encouraged her to discontinue all tobacco products. 3. 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 She reports she has not had a repeat catheterization since that time. We will try to obtain those old records from our office or from [facility] to confirm her coronary disease. According to our office notes, her last catheterization was in 2012 and showed no significant disease, moderate LV dysfunction, and no evidence of stenting at that time, and no need for stenting at that time as well. 4. Hyperlipidemia: Patient was on atorvastatin, but does not appear to be on statins at this time. We will check with patient why this is, but would recommend some sort of cholesterol management to drive her LDL less than 70. 5. Thank you very much for the opportunity to participate in the cardiac care of your patient. Patient may be discharged home today with follow-up with me going forward.
--- NOTE | 2017-11-16 10:51 | CASEMGMT ---
This RN WINSOME received call from [facility] and they state that they are not able to take pt back at this time. This RN CM to room to update pt at this time, voices understanding. This RN CM asked pt who has been doing her dressing changes on days that [facility] was not there and she states she has a family member who assists and states no concerns with her completing dressing changes. Pt states that she has not really been homebound and that she has a f/u appointment at the [facility] wound clinic next monday. Pt states she plans to f/u on monday and will have them evaluate if HHC needed any longer or if she can maybe set up outpt visits with wound clinic, if needed. Pt agrees to all at this time and states no concerns at this time. Monik TEJADA CM
[2017-11-16 11:21] LABS: Bedside Glucose 127 mg/dL (70-110)
--- NOTE | 2017-11-16 14:35 | DIALYSIS ---
Hd x 3.5 hours complete. Tolerated tx well. UF of 3000ml. Ran on 2k bath. Used left arm fistula. [place] removed post tx. Held needle sites x 30 min. Hemostasis achieved. Report was given to MALLORY Joy.
[2017-11-16] MEDS: Carvedilol 25 MG Tablet PO (14:45)
[2017-11-16] MEDS: dilTIAZem CD 240 MG Capsule PO (14:45)
[2017-11-16] MEDS: Pantoprazole Sodium 40 MG Tablet PO (14:47)
[2017-11-16] MEDS: FLUoxetine 20 MG Capsule 40 MG PO (14:47)
[2017-11-16] MEDS: Sodium Bicarbonate 650 MG Tablet PO (14:47)
--- NOTE | 2017-11-16 14:55 | NURSING ---
wound photo: sacrum
== END 2017-11-16 15:08 | disposition home or self-care (01) | DRG 291 ==
PROVIDERS: Admitting Provider Internal Medicine; Family Provider Family Medicine; PCP Family Medicine; Visit Provider Internal Medicine
DX: I13.2 Hypertensive heart and chronic kidney disease with heart failure and with stage 5 chronic kidney disease, or end stage renal disease (principal); J96.21 Acute and chronic respiratory failure with hypoxia; I50.31 Acute diastolic (congestive) heart failure; L89.153 Pressure ulcer of sacral region, stage 3; N18.6 End stage renal disease; I16.9 Hypertensive crisis, unspecified; E10.22 Type 1 diabetes mellitus with diabetic chronic kidney disease; Z99.2 Dependence on renal dialysis; E87.5 Hyperkalemia; Z99.81 Dependence on supplemental oxygen; I25.10 Atherosclerotic heart disease of native coronary artery without angina pectoris; G47.33 Obstructive sleep apnea (adult) (pediatric); E78.5 Hyperlipidemia, unspecified; K31.84 Gastroparesis; E10.43 Type 1 diabetes mellitus with diabetic autonomic (poly)neuropathy; Z68.32 Body mass index [BMI] 32.0-32.9, adult; E66.9 Obesity, unspecified; Z71.3 Dietary counseling and surveillance; F17.200 Nicotine dependence, unspecified, uncomplicated; D63.1 Anemia in chronic kidney disease; F41.9 Anxiety disorder, unspecified; F32.9 Major depressive disorder, single episode, unspecified; K21.9 Gastro-esophageal reflux disease without esophagitis; Z87.01 Personal history of pneumonia (recurrent); Z87.19 Personal history of other diseases of the digestive system; Z93.3 Colostomy status; Z95.5 Presence of coronary angioplasty implant and graft; I25.2 Old myocardial infarction; L05.92 Pilonidal sinus without abscess
CPT/HCPCS: 36415; 71045; 80048; 80061; 82962; 83036; 83735; 84443; 84484; 85025; 90937; 93005; 93308; 94002; 94003; 97802; 99406; J7030; Q9957; A4216; C8924; G0257; J1940; J2405

== ENCOUNTER 2017-12-04 09:00 | Outpatient (RCR) | payer MEDICARE, MEDICAID, SELFPAY ==
[2017-11-21 13:13] VITALS: BP 187/94; PULSE 94; RESP 16; TEMP 36.4; BMI 37.4
--- NOTE | 2017-11-21 21:32 | PCM.WC.PN ---
Type of Wound Date of Service: 11/21/17 Chief Complaint: Nonhealing ulcer sacral area. History of Wound: Surgery 08/15/17 - Surgical preparation sacral and left gluteal area with excision recurrent extensive complicated pilonidal cyst ulcers with left gluteal extension and necrotizing anal sphincter muscle involvement (152 cm2). Wound care - Silver. Operative culture - Streptococcus group G, Enterococcus avium, E. coli, Anaerobic cocci, and Bacteroides species. She was treated with Vancomycin, Ceftazidine, and Flagyl. She was sent to an LTAC. Fungal cultures showed Marifer albicans and Marifer glabrata and was treated. Prealbumin was 23.1. Encourage nutritional supplementation with protein to help the healing process. Today she denies any fever. Her appetite is good. Progress of Wound: Improved. - Physical Exam Vital Signs Temp Pulse Resp BP 97.5 F L 94 16 187/94 H 11/21/17 13:13 11/21/17 13:13 11/21/17 13:13 11/21/17 13:13 Wound Measurements and Assessment WC - Nurse 1 - General Ulcer Measurement Start: 11/21/17 13:13 Freq: Status: Active Protocol: Activity Type Activity Date Activity User E-Sign Co-Sign Detail Recorded Client Recorded Date Recorded By Document 11/21/17 13:13 [facility] [id number] 11/21/17 13:30 [facility] 11/21/17 13:13 Wound Center Nurse 1 [Ulcer Assessment] #2- SACRUM -Combined with other wound No -Current Size (cm) - Length 8.2 -Current Size (cm) - Width 1.5 -Current Size (cm) - Depth 0.9 -Total Square Cm 12.30 -Date of Last Picture (Recall this 11/21/17 field) -Photo Taken Yes -Epithelialization Small 1-33% -Tunneling No -Undermining/Tunneling No -Circular Undermining No -Exudate Amt Medium (34-66%) -Exudate Type Serosanguineous -Wound Margin Distinct, Outline Attached -Granulation Amt Large (67-100%) -Granulation Quality [place] -Slough/Fibrin No -Necrosis Amt None Present (0 %) -Structure Exposed None/Limited to Skin Breakdown -Texture (Jenny-wound Skin Appearance) Scarring -Moisture (Jenny-wound Skin Appearance Maceration ) -Color (Jenny-wound Skin Appearance) Assessed -Temperature (Jenny-wound Skin No Abnormality Appearance) (Pt Warm) -Tenderness on Palpation (Jenny-wound No Skin Appearance) -Ulcer Cleansing Rinsed/ Irrigated with Saline -Foul Odor after Cleansing No -Anesthetic Used 4% Lidocaine Solution GURINDER - Nurse 2 - General Ulcer CM Notes Start: 11/21/17 13:13 Freq: Status: Active Protocol: Activity Type Activity Date Activity User E-Sign Co-Sign Detail Recorded Client Recorded Date Recorded By Document 11/21/17 14:15 [id number] 11/21/17 14:16 11/21/17 14:15 Wound Center Nurse 2 [Procedure/Treatment] -Time 14:16 -Correct Patient Yes -Correct Side, Site, Position Yes -Correct Procedure Yes -Procedure Performed Yes -Type of Procedure Debridement -Clinical Debridement Subcutaneous -Post Debridement Size (cm) - Length 8.3 -Post Debridement Size (cm) - Width 1.6 -Post Debridement Size (cm) - Depth 1.0 -Total Square Cm 13.28 -Wound/Ulcer Outcome Not Healed -Ulcer Cleansing Rinsed/ Irrigated with Saline -Foul Odor after Cleansing No -Bioengineered Tissue No -Bleeding Controlled with Pressure -Treatment Response Procedure Tolerated Well [See Physician Procedure note for Specifics] Pain Scale: 0-10 Numeric [Pain] -Is Patient Pain Free? Yes Debridement Note Post-Debridement Measurements/Treatment GURINDER - Nurse 2 - General Ulcer CM Notes Start: 11/21/17 13:13 Freq: Status: Active Protocol: Activity Type Activity Date Activity User E-Sign Co-Sign Detail Recorded Client Recorded Date Recorded By Document 11/21/17 14:15 [id number] 11/21/17 14:16 11/21/17 14:15 Wound Center Nurse 2 #2- SACRUM -Time 14:16 -Correct Patient Yes -Correct Side, Site, Position Yes -Correct Procedure Yes -Procedure Performed Yes -Type of Procedure Debridement -Clinical Debridement Subcutaneous -Post Debridement Size (cm) - Length 8.3 -Post Debridement Size (cm) - Width 1.6 -Post Debridement Size (cm) - Depth 1.0 -Total Square Cm 13.28 -Wound/Ulcer Outcome Not Healed -Ulcer Cleansing Rinsed/ Irrigated with Saline -Foul Odor after Cleansing No -Bioengineered Tissue No -Bleeding Controlled with Pressure -Treatment Response Procedure Tolerated Well Pain Scale: 0-10 Numeric Is Patient Pain Free? Yes Wound debrided: #2 Sacral area. Laterality: Not Applicable Wound Grade/Stage: 3. Type of Debridement: Excisional debridement Anesthesia Used: 4% Lidocaine Solution Depth: Down to and including healthy tissue, in the subcutaneous layer Percentage of wound debrided: 100 Instrument Used: 5mm curette Tissue Removed: subcutaneous tissue. Severity: Fat Layer Exposed Amount of bleeding with debridement: Mild Bleeding Controlled with: Pressure Patient tolerated procedure well Assessment/Plan Assessment: 1. 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 2. ESRD on dialysis. 3. Diabetes mellitus. 4. Anemia of chronic disease. 5. Smoker. 6. s/p surgical preparation sacral and left gluteal area with excision recurrent extensive complicated pilonidal cyst ulcers with left gluteal extension and necrotizing anal sphincter muscle involvement (152 cm2). 7. Nonhealing ulcer sacral area. Plan: Continue Silver dressing changes daily. She is finished with her antibiotics. Encourage nutritional supplementation with protein to help the healing process. Renewed her Vicodin for pain, one tab (30 tabs). Followup 2 weeks.
--- NOTE | 2017-11-21 23:32 | PN.PCM_ITS ---
Type of Wound Date of Service: 11/21/17 Chief Complaint: Nonhealing ulcer sacral area. History of Wound: Surgery 08/15/17 - Surgical preparation sacral and left gluteal area with excision recurrent extensive complicated pilonidal cyst ulcers with left gluteal extension and necrotizing anal sphincter muscle involvement (152 cm2). Wound care - Silver. Operative culture - Streptococcus group G, Enterococcus avium, E. coli, Anaerobic cocci, and Bacteroides species. She was treated with Vancomycin, Ceftazidine, and Flagyl. She was sent to an LTAC. Fungal cultures showed Marifer albicans and Marifer glabrata and was treated. Prealbumin was 23.1. Encourage nutritional supplementation with protein to help the healing process. Today she denies any fever. Her appetite is good. Progress of Wound: Improved. - Physical Exam Vital Signs Temp Pulse Resp BP 97.5 F L 94 16 187/94 H 11/21/17 13:13 11/21/17 13:13 11/21/17 13:13 11/21/17 13:13 Wound Measurements and Assessment WC - Nurse 1 - General Ulcer Measurement Start: 11/21/17 13:13 Freq: Status: Active Protocol: Activity Type Activity Date Activity User E-Sign Co-Sign Detail Recorded Client Recorded Date Recorded By Document 11/21/17 13:13 [facility] [id number] 11/21/17 13:30 [facility] 11/21/17 13:13 Wound Center Nurse 1 [Ulcer Assessment] #2- SACRUM -Combined with other wound No -Current Size (cm) - Length 8.2 -Current Size (cm) - Width 1.5 -Current Size (cm) - Depth 0.9 -Total Square Cm 12.30 -Date of Last Picture (Recall this 11/21/17 field) -Photo Taken Yes -Epithelialization Small 1-33% -Tunneling No -Undermining/Tunneling No -Circular Undermining No -Exudate Amt Medium (34-66%) -Exudate Type Serosanguineous -Wound Margin Distinct, Outline Attached -Granulation Amt Large (67-100%) -Granulation Quality [place] -Slough/Fibrin No -Necrosis Amt None Present (0 %) -Structure Exposed None/Limited to Skin Breakdown -Texture (Jenny-wound Skin Appearance) Scarring -Moisture (Jenny-wound Skin Appearance Maceration ) -Color (Jenny-wound Skin Appearance) Assessed -Temperature (Jenny-wound Skin No Abnormality Appearance) (Pt Warm) -Tenderness on Palpation (Jenny-wound No Skin Appearance) -Ulcer Cleansing Rinsed/ Irrigated with Saline -Foul Odor after Cleansing No -Anesthetic Used 4% Lidocaine Solution GURINDER - Nurse 2 - General Ulcer CM Notes Start: 11/21/17 13:13 Freq: Status: Active Protocol: Activity Type Activity Date Activity User E-Sign Co-Sign Detail Recorded Client Recorded Date Recorded By Document 11/21/17 14:15 [id number] 11/21/17 14:16 11/21/17 14:15 Wound Center Nurse 2 [Procedure/Treatment] -Time 14:16 -Correct Patient Yes -Correct Side, Site, Position Yes -Correct Procedure Yes -Procedure Performed Yes -Type of Procedure Debridement -Clinical Debridement Subcutaneous -Post Debridement Size (cm) - Length 8.3 -Post Debridement Size (cm) - Width 1.6 -Post Debridement Size (cm) - Depth 1.0 -Total Square Cm 13.28 -Wound/Ulcer Outcome Not Healed -Ulcer Cleansing Rinsed/ Irrigated with Saline -Foul Odor after Cleansing No -Bioengineered Tissue No -Bleeding Controlled with Pressure -Treatment Response Procedure Tolerated Well [See Physician Procedure note for Specifics] Pain Scale: 0-10 Numeric [Pain] -Is Patient Pain Free? Yes Debridement Note Post-Debridement Measurements/Treatment GURINDER - Nurse 2 - General Ulcer CM Notes Start: 11/21/17 13:13 Freq: Status: Active Protocol: Activity Type Activity Date Activity User E-Sign Co-Sign Detail Recorded Client Recorded Date Recorded By Document 11/21/17 14:15 [id number] 11/21/17 14:16 11/21/17 14:15 Wound Center Nurse 2 #2- SACRUM -Time 14:16 -Correct Patient Yes -Correct Side, Site, Position Yes -Correct Procedure Yes -Procedure Performed Yes -Type of Procedure Debridement -Clinical Debridement Subcutaneous -Post Debridement Size (cm) - Length 8.3 -Post Debridement Size (cm) - Width 1.6 -Post Debridement Size (cm) - Depth 1.0 -Total Square Cm 13.28 -Wound/Ulcer Outcome Not Healed -Ulcer Cleansing Rinsed/ Irrigated with Saline -Foul Odor after Cleansing No -Bioengineered Tissue No -Bleeding Controlled with Pressure -Treatment Response Procedure Tolerated Well Pain Scale: 0-10 Numeric Is Patient Pain Free? Yes Wound debrided: #2 Sacral area. Laterality: Not Applicable Wound Grade/Stage: 3. Type of Debridement: Excisional debridement Anesthesia Used: 4% Lidocaine Solution Depth: Down to and including healthy tissue, in the subcutaneous layer Percentage of wound debrided: 100 Instrument Used: 5mm curette Tissue Removed: subcutaneous tissue. Severity: Fat Layer Exposed Amount of bleeding with debridement: Mild Bleeding Controlled with: Pressure Patient tolerated procedure well Assessment/Plan Assessment: 1. 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 2. ESRD on dialysis. 3. Diabetes mellitus. 4. Anemia of chronic disease. 5. Smoker. 6. s/p surgical preparation sacral and left gluteal area with excision recurrent extensive complicated pilonidal cyst ulcers with left gluteal extension and necrotizing anal sphincter muscle involvement (152 cm2). 7. Nonhealing ulcer sacral area. Plan: Continue Silver dressing changes daily. She is finished with her antibiotics. Encourage nutritional supplementation with protein to help the healing process. Renewed her Vicodin for pain, one tab (30 tabs). Followup 2 weeks.
[2017-12-04 08:28] VITALS: BP 167/85; PULSE 89; RESP 18; TEMP 35.3; BMI 37.4
--- NOTE | 2017-12-04 23:52 | PN.PCM_ITS ---
Type of Wound Date of Service: 12/04/17 Chief Complaint: Nonhealing ulcer sacral area. History of Wound: Surgery 08/15/17 - Surgical preparation sacral and left gluteal area with excision recurrent extensive complicated pilonidal cyst ulcers with left gluteal extension and necrotizing anal sphincter muscle involvement (152 cm2). Wound care - Silver. Operative culture - Streptococcus group G, Enterococcus avium, E. coli, Anaerobic cocci, and Bacteroides species. She was treated with Vancomycin, Ceftazidine, and Flagyl. She was sent to an LTAC. Fungal cultures showed Marifer albicans and Marifer glabrata and was treated. Prealbumin was 23.1. Encourage nutritional supplementation with protein to help the healing process. Today she denies any fever. Her appetite is good. Progress of Wound: Improved. - Physical Exam Vital Signs Temp Pulse Resp BP 95.6 F L 89 18 167/85 H 12/04/17 08:28 12/04/17 08:28 12/04/17 08:28 12/04/17 08:28 Wound Measurements and Assessment WC - Nurse 1 - General Ulcer Measurement Start: 11/21/17 13:13 Freq: Status: Active Protocol: Activity Type Activity Date Activity User E-Sign Co-Sign Detail Recorded Client Recorded Date Recorded By Document 12/04/17 08:28 [facility] [id number] 12/04/17 08:39 12/04/17 08:28 Wound Center Nurse 1 [Ulcer Assessment] #2- SACRUM -Combined with other wound No -Current Size (cm) - Length 9 -Current Size (cm) - Width 0.7 -Current Size (cm) - Depth 0.6 -Total Square Cm 6.3 -Photo Taken No -Exudate Amt Medium (34-66%) -Exudate Type Serosanguineous -Wound Margin Distinct, Outline Attached -Granulation Amt Large (67-100%) -Granulation Quality [place] -Necrosis Amt None Present (0 %) -Necrotic Tissue Type Adherent Slough -Structure Exposed N/A -Texture (Jenny-wound Skin Appearance) Scarring -Moisture (Jenny-wound Skin Appearance Maceration ) -Color (Jenny-wound Skin Appearance) No Abnormality -Temperature (Jenny-wound Skin No Abnormality Appearance) (Pt Warm) -Ulcer Cleansing Rinsed/ Irrigated with Saline -Anesthetic Used 4% Lidocaine Solution [Edema Assessment] -Lower Limb Edema Present NA WC - Nurse 2 - General Ulcer CM Notes Start: 11/21/17 13:13 Freq: Status: Active Protocol: Activity Type Activity Date Activity User E-Sign Co-Sign Detail Recorded Client Recorded Date Recorded By Document 12/04/17 08:51 [id number] 12/04/17 08:54 12/04/17 08:51 Wound Center Nurse 2 [Procedure/Treatment] #2- SACRUM -Time 08:53 -Correct Patient Yes -Correct Side, Site, Position Yes -Correct Procedure Yes -Procedure Performed Yes -Type of Procedure Debridement -Clinical Debridement Subcutaneous -Post Debridement Size (cm) - Length 9 -Post Debridement Size (cm) - Width 0.8 -Post Debridement Size (cm) - Depth 0.6 -Total Square Cm 7.2 -Wound/Ulcer Outcome Not Healed -Ulcer Cleansing Rinsed/ Irrigated with Saline -Foul Odor after Cleansing No -Bioengineered Tissue No -Bleeding Controlled with Pressure -Treatment Response Procedure Tolerated Well [See Physician Procedure note for Specifics] Pain Scale: 0-10 Numeric [Pain] -Is Patient Pain Free? Yes Debridement Note Post-Debridement Measurements/Treatment - Nurse 2 - General Ulcer CM Notes Start: 11/21/17 13:13 Freq: Status: Active Protocol: Activity Type Activity Date Activity User E-Sign Co-Sign Detail Recorded Client Recorded Date Recorded By Document 11/21/17 14:15 [id number] 11/21/17 14:16 Document 12/04/17 08:51 [id number] 12/04/17 08:54 11/21/17 12/04/17 14:15 08:51 Wound Center Nurse 2 #2- SACRUM -Time 14:16 08:53 -Correct Patient Yes Yes -Correct Side, Site, Position Yes Yes -Correct Procedure Yes Yes -Procedure Performed Yes Yes -Type of Procedure Debridement Debridement -Clinical Debridement Subcutaneous Subcutaneous -Post Debridement Size (cm) - Length 8.3 9 -Post Debridement Size (cm) - Width 1.6 0.8 -Post Debridement Size (cm) - Depth 1.0 0.6 -Total Square Cm 13.28 7.2 -Wound/Ulcer Outcome Not Healed Not Healed -Ulcer Cleansing Rinsed/ Rinsed/ Irrigated with Irrigated with Saline Saline -Foul Odor after Cleansing No No -Bioengineered Tissue No No -Bleeding Controlled with Pressure Pressure -Treatment Response Procedure Procedure Tolerated Well Tolerated Well Pain Scale: 0-10 Numeric Is Patient Pain Free? Yes Yes Wound debrided: #2 Sacral area. Laterality: Not Applicable Wound Grade/Stage: 3. Type of Debridement: Excisional debridement Anesthesia Used: 4% Lidocaine Solution Depth: Down to and including healthy tissue, in the subcutaneous layer Percentage of wound debrided: 100 Instrument Used: 5mm curette Tissue Removed: subcutaneous tissue. Severity: Fat Layer Exposed Amount of bleeding with debridement: Mild Bleeding Controlled with: Pressure Patient tolerated procedure well Assessment/Plan Assessment: 1. 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 2. ESRD on dialysis. 3. Diabetes mellitus. 4. Anemia of chronic disease. 5. Smoker. 6. s/p surgical preparation sacral and left gluteal area with excision recurrent extensive complicated pilonidal cyst ulcers with left gluteal extension and necrotizing anal sphincter muscle involvement (152 cm2). 7. Nonhealing ulcer sacral area. Plan: Continue Silver dressing changes daily. She is finished with her antibiotics. Encourage nutritional supplementation with protein to help the healing process. Followup 3 weeks.
== END 2017-12-21 23:59 ==
LOC: WC 09:00
PROVIDERS: Family Provider Family Medicine; PCP Family Medicine; Visit Provider Surgery
DX: L98.491 Non-pressure chronic ulcer of skin of other sites limited to breakdown of skin (principal); D64.9 Anemia, unspecified; E11.9 Type 2 diabetes mellitus without complications; E46 Unspecified protein-calorie malnutrition
CPT/HCPCS: 11042; 99213; G0463

== ENCOUNTER 2017-12-18 04:54 | Emergency (ER) | payer MEDICARE, MEDICAID, SELFPAY ==
[2017-12-18 04:55] VITALS: BP 174/84; PULSE 81; RESP 18; TEMP 36.6; O2SAT 98; BMI 32.3
--- NOTE | 2017-12-18 05:12 | CT_ITS ---
STUDY: CT ABDOMEN AND PELVIS WITHOUT CONTRAST REASON FOR EXAM: Female, 41 years old. Epigastric pain for 3 days. Patient has blood in the colostomy. RADIATION DOSAGE (If Supplied By Facility): CTDIvol = ( 21.51 ) mGy, DLP = ( 1064.23 ) mGycm TECHNIQUE: Transaxial images were obtained from the dome of the diaphragm to the symphysis pubis without oral contrast, and without intravenous contrast. Sagittal and coronal images were reconstructed. Enteric contrast may been administered through the ostomy. Individualized dose optimization techniques were used for this CT. COMPARISON: CT of the abdomen and pelvis dated August 12, 2017. FINDINGS: There are nodular opacities in the right middle lobe associated with some interstitial thickening. The interstitial thickening may be related to pulmonary fibrosis. No pleural effusions are visualized. The visualized portions of the heart are within normal limits. There is elongation of the right lobe of the liver consistent with a Kevin's lobe. Normal gallbladder and extrahepatic biliary system. There is mild splenomegaly. Normal pancreas. There is a left adrenal nodule measuring approximately 1.8 cm in greatest dimension. The right adrenal gland has a normal appearance. There is bilateral perinephric stranding. There are vascular calcifications of the renal latrell. Of both kidneys have generally normal position. There is no evidence for hydronephrosis, hydroureter or radiopaque ureteral calculus. There is a small hiatal hernia. There is no evidence for dilated bowel, ascites or pneumoperitoneum. Small bowel has a grossly normal appearance. There is a partial colon resection. The ostomy exits the central upper abdomen. There is some thickening of the [place] of the rectum and transverse colon in part probably related to nondistention. There is non-visualization of the appendix. There is mild atherosclerotic calcification of the abdominal aorta, without a demonstrated aneurysm. Normal inferior vena cava. Normal retroperitoneum. Normal urinary bladder. There is absence of the uterus consistent with a prior hysterectomy. There is a parastomal ventral hernia at the colostomy site. There is also a right paramedian ventral hernia just to the right of the parastomal hernia. There are diffuse degenerative changes of the visualized lumbar spine. CT/Abdomen/Pel W ORAL Cont Only IMPRESSION: 1. Two ventral hernias, as described. 2. Small hiatal hernia. 3. Nonspecific right middle lobe pulmonary nodules. 4. No CT evidence of acute intra-abdominal disease. Electronically Signed: Val Cabrera MD at 8:29 EDT , Service support ,
[2017-12-18 06:27] LABS: Absolute Lymphocyte Count 1.28 X10^3/ul (0.83-4.51); Basophil# 0.01 X10^3/uL; Basophil% 0.2 % (0-1); Eosinophil# 0.38 X10^3/uL; Eosinophils% 6.3 % (0-5); Hematocrit 27.4 % (37-47); Hemoglobin 8.9 g/dl (12.0-15.0); Lymphocyte # 1.28 X10^3/ul (4.0); Lymphocyte % 21.4 % (19-41); Mean Corp Hgb Conc 32.5 g/gl (32-36); Mean Corpuscular Volume 101.5 fL (81-99); Mean Platelet Vol. 8.2 fl (6.2-12.0); Monocyte# 0.29 X10^3/uL; Monocyte% 4.8 % (0-10); Neutrophil # 4.01 X10^3/uL (2.7-7.7); Platelet Count 136 K/mm3 (150-450); RBC Distribution Width CV 16.2 % (11.6-14.6); RBC Distribution Width SD 58.8 fl (35.1-43.9)
[2017-12-18] MEDS: proMETHazine 25 MG/ML Syringe 6.25 MG IV ×2 (06:27→08:35)
[2017-12-18 06:28] LABS: POSITIVE COUNT NO; POSITIVE DIFFERENTIAL NO; POSITIVE MORPHOLOGY NO
[2017-12-18] MEDS: Morphine 2 MG/ML Syringe IV (06:28)
[2017-12-18 06:47] LABS: International Normalized Ratio 1.2; Prothrombin Time (Protime)PT. 14.7 SECONDS (11.7-14.9)
[2017-12-18 06:48] LABS: Partial Thromboplast Time 30.2 Seconds (24.1-36.2)
--- NOTE | 2017-12-18 06:54 | NURSING ---
NO LW OR POA
--- NOTE | 2017-12-18 07:09 | ED.VISSUMM ---
- ER Visit Summary Date of Service: 12/18/17 Chief Complaint: [] GI bleed and wound check History of Present Illness: The patient is a 41 F [] complaining of lower GI bleed with blood visualized in the colostomy bag. Patient reports she recently had a significant sacral decubitus surgical debridement which has healed nicely. She does report slight drainage for which she is slightly concerned. She also reports that she feels as if she may have some blood in her colostomy bag. She does report a previous history of C. difficile. She denies nausea and vomiting. Denies fevers. Symptoms started today. No other complaints at this time. Physical Examination: [] Afebrile, vital signs stable. 41-year-old female no acute distress. Cardiovascular exam is regular rate and rhythm. Lungs were auscultation. Abdomen is soft with mild lower quadrant discomfort. No guarding or rebound noted. Colostomy appears intact with discoloration to the output in the bag with a slight red tinge. Evaluation of the sacral area reveals a very nicely healing wound with a small linear open wound measuring approximately 3 cm x 0.5 cm. No pus drainage or surrounding cellulitis. Test Results: [] CBC reveals a hemoglobin of 8.9 which is similar to previous hemoglobin 2 months ago. Remainder of labs are pending at time of this dictation. CT of the abdomen and pelvis with p.o. contrast is pending at time of dictation. Emergency Department Course and Treatment: [] Patient underwent routine laboratory testing. A sample from the patient's colostomy bag was sent down for Hemoccult testing, C. difficile testing, and ova and parasites. CT of the abdomen and pelvis with oral contrast will be reviewed by my partner and disposition will be decided on at the completion of her workup. If the CT scan is negative, the patient will likely be discharged to follow-up with her plastic surgeon and general surgeon as scheduled next week. Treatment Plan: [] If workup negative, follow-up as previously mentioned. Disposition: [] Patient will be discharged if CT of the abdomen/pelvis reveals no acute pathology. Stable. Impression: [] Lower GI bleed Sacral wound check This note was generated with [employer] software. It may contain incorrect words, spelling, and punctuation that were not noted in review of the chart prior to signing ED Disposition - Plan for ED Patient: Chief Complaint: GI Bleed Referrals: [place],Christopher, MD [Primary Care Provider] -
--- NOTE | 2017-12-18 07:20 | ED.DEP ---
ED Disposition - Plan for ED Patient: Disposition: Home or Assisted Living Chief Complaint: GI Bleed Instructions: ED Hematochezia Stable Referrals: Christopher Foy MD [Primary Care Provider] -
[2017-12-18 08:04] LABS: ALB/GLOB Ratio 0.6 RATIO (0.9-2.4); AST(SGOT) 31 U/L (15-37); Alanine Aminotransfer ALT/SGPT 28 U/L (13-56); Alkaline Phosphatase 84 U/L (45-117); Anion Gap 12 (5-15); BUN 38 mg/dL (7-18); BUN/Creat Ratio 7.3 RATIO (10-20); Calcium,Total 8.2 mg/dL (8.5-10.1); Chloride 103 mmol/L (98-107); Creatinine, Serum 5.23 mg/dL (0.55-1.02); EST Glomerular Filtration Rate 10 mL/min (>60); Est Glom Filt Rate - Afr Amer 12 mL/min (>60); Estimated Creatinine Clearance 12.98 ml/min; Globulin 4.8 g/dL (2.2-4.2); Glucose 149 mg/dL (74-106); Lipase 449 U/L (73-393); Protein, Total 7.8 g/dL (6.4-8.2); Sodium Level 140 mmol/L (136-145)
[2017-12-18 08:20] VITALS: BP 138/71; PULSE 72; RESP 16; O2SAT 98
[2017-12-18] MEDS: Morphine 4 MG/ML Syringe IV (08:35)
[2017-12-18 08:49] VITALS: BP 122/75; PULSE 69; RESP 15; O2SAT 98
== END 2017-12-18 08:50 | disposition home or self-care (01) ==
PROVIDERS: Emergency Provider Emergency Medicine; Family Provider Family Medicine; PCP Family Medicine
DX: K92.2 Gastrointestinal hemorrhage, unspecified (principal); Z93.3 Colostomy status; N18.6 End stage renal disease; I12.0 Hypertensive chronic kidney disease with stage 5 chronic kidney disease or end stage renal disease; I25.10 Atherosclerotic heart disease of native coronary artery without angina pectoris; Z72.0 Tobacco use; Z79.899 Other long term (current) drug therapy
CPT/HCPCS: 74176; 80053; 82274; 83690; 85025; 85610; 85730; 86850; 86870; 86900; 87177; 87209; 87493; 96374; 96375; 96376; 99285; A4216

== ENCOUNTER 2017-12-24 00:39 | Emergency (ER) | payer MEDICARE, MEDICAID, SELFPAY ==
[2017-12-24 00:40] VITALS: BP 185/88; PULSE 82; RESP 19; TEMP 36.6; O2SAT 98; BMI 32.1
--- NOTE | 2017-12-24 00:52 | CT_ITS ---
STUDY: CT ABDOMEN AND PELVIS WITHOUT CONTRAST REASON FOR EXAM: Female, 41 years old. Abdominal pain RADIATION DOSAGE (If Supplied By Facility): CTDIvol = ( 20.91 ) mGy, DLP = ( 1050.41 ) mGycm TECHNIQUE: Transaxial images were obtained from the dome of the diaphragm to the symphysis pubis without oral contrast, and without intravenous contrast. Sagittal and coronal images were reconstructed. Individualized dose optimization techniques were used for this CT. COMPARISON: None. FINDINGS: There is smooth thickening of the interseptal lung markings at the lung bases. The visualized portions of the heart are within normal limits. Normal liver. Normal gallbladder and extrahepatic biliary system. Normal spleen. Normal pancreas. There is a 1.9 cm nodule associated with the left adrenal gland. Mild bilateral perinephric stranding. Normal bilateral ureters. Normal visualized stomach. Normal small intestine. There is postoperative change from left lower quadrant colostomy involving the transverse colon. Appendix is not visualized. Moderate atherosclerotic calcification of the abdominal vasculature. Normal inferior vena cava. Normal retroperitoneum. Normal urinary bladder. Patient is status post hysterectomy. There is an large fat-containing umbilical hernia. Multilevel degenerative change of the spine. CT/Abdomen/Pel W ORAL Cont Only IMPRESSION: 1. Large fat-containing umbilical hernia with no evidence of bowel involvement. 2. 1.9 cm left adrenal gland nodule. 3. Interstitial edema at the lung bases. Electronically Signed: Bernardo Preston MD at 4:01 EDT Tel , Service support ,
[2017-12-24] MEDS: proMETHazine 25 MG/ML Syringe 6.25 MG IV ×2 (01:11→02:05)
[2017-12-24] MEDS: Morphine 4 MG/ML Syringe IV ×2 (01:11→02:05)
[2017-12-24 01:24] LABS: Absolute Lymphocyte Count 1.65 X10^3/ul (0.83-4.51); Absolute Neutrophil Count 4.9 X10^3/uL (2.0-7.7); Basophil# 0.02 X10^3/uL; Basophil% 0.3 % (0-1); Eosinophils% 4.1 % (0-5); Hematocrit 29.7 % (37-47); Hemoglobin 9.5 g/dl (12.0-15.0); Lymphocyte # 1.65 X10^3/ul (4.0); Lymphocyte % 22.7 % (19-41); Mean Corpuscular Hgb 33.1 pg (27.0-32.0); Mean Corpuscular Volume 103.5 fL (81-99); Monocyte# 0.41 X10^3/uL; Monocyte% 5.6 % (0-10); Neutrophil # 4.89 X10^3/uL (2.7-7.7); Neutrophil % 67.2 % (47-70); Platelet Count 155 K/mm3 (150-450); RBC Distribution Width CV 14.7 % (11.6-14.6); RBC Distribution Width SD 54.6 fl (35.1-43.9); Red Blood Count 2.87 M/mm3 (4.2-5.4); White Blood Count 7.3 K/mm3 (4.4-11.0)
[2017-12-24 01:28] LABS: POSITIVE COUNT NO; POSITIVE DIFFERENTIAL NO; POSITIVE MORPHOLOGY NO
[2017-12-24 01:48] LABS: ALB/GLOB Ratio 0.6 RATIO (0.9-2.4); AST(SGOT) 16 U/L (15-37); Alanine Aminotransfer ALT/SGPT 24 U/L (13-56); Albumin, Serum 3.1 g/dL (3.2-5.0); Alkaline Phosphatase 98 U/L (45-117); Anion Gap 12 (5-15); BUN 51 mg/dL (7-18); BUN/Creat Ratio 7.6 RATIO (10-20); Calcium,Total 8.3 mg/dL (8.5-10.1); Chloride 100 mmol/L (98-107); Creatinine, Serum 6.67 mg/dL (0.55-1.02); EST Glomerular Filtration Rate 7 mL/min (>60); Est Glom Filt Rate - Afr Amer 9 mL/min (>60); Estimated Creatinine Clearance 10.18 ml/min; Globulin 4.8 g/dL (2.2-4.2); Glucose 246 mg/dL (74-106); Lipase 508 U/L (73-393); Potassium 4.5 mmol/L (3.5-5.1); Protein, Total 7.9 g/dL (6.4-8.2); Sodium Level 136 mmol/L (136-145)
[2017-12-24 01:52] LABS: Lactic Acid 1.4 mmol/L (0.4-2.0)
[2017-12-24 02:10] VITALS: BP 162/79; PULSE 80; RESP 18; O2SAT 97
[2017-12-24 04:06] VITALS: BP 157/80; PULSE 82; RESP 16; O2SAT 97
--- NOTE | 2017-12-24 04:13 | ED.DCSUM_ITS ---
- ER Visit Summary Date of Service: 12/24/17 Chief Complaint: [] Abdominal pain History of Present Illness: The patient is a 41 F [] complaining of abdominal pain and nausea. Denies vomiting. Denies fevers. Has a colostomy secondary to having a significant sacral wound surgically repaired which is currently healing. Patient reports increased yellow greenish fluid output from her colostomy as well as tenderness at the actual opening of the colostomy site. Physical Examination: [] Afebrile, vital signs stable. 41-year-old female no acute distress. Abdominal exam reveals mild tenderness around the colostomy site without guarding or rebound. There was no abdominal distention. Remainder of exam is unremarkable. Test Results: [] CBC, BMP, LFTs within normal limits with the exception of a creatinine of 6.67 which is consistent with the patient's baseline history of renal failure. Lactic acid 1.4. Lipase moderately elevated 508. CT of the abdomen and pelvis with p.o. contrast reveals no acute pathology. Emergency Department Course and Treatment: [] Patient given intravenous morphine ?2, Phenergan, saline. On serial exam had improvement of symptoms. She was counseled regarding her diagnostic and laboratory findings and encouraged follow-up with her surgeon Dr. Zhang. Treatment Plan: [] Follow-up with PCP. Follow-up with surgeon. Disposition: [] Discharge, stable. Impression: [] Abdominal pain, unknown etiology This note was generated with [employer] dictation software. It may contain incorrect words, spelling, and punctuation that were not noted in review of the chart prior to signing ED Disposition - Plan for ED Patient: Chief Complaint: Abd Pain Referrals: Christopher Foy MD [Primary Care Provider] -
--- NOTE | 2017-12-24 04:13 | ED.DEP ---
ED Disposition - Plan for ED Patient: Disposition: Home or Assisted Living Chief Complaint: Abd Pain Instructions: ED Abdominal Pain Unkn Cause Referrals: Christopher Foy MD [Primary Care Provider] - Jhon Zhang MD [STAFF PHYSICIAN] -
[2017-12-24 04:18] VITALS: BP 157/80; PULSE 82; RESP 16; O2SAT 97
== END 2017-12-24 04:19 | disposition home or self-care (01) ==
PROVIDERS: Emergency Provider Emergency Medicine; Family Provider Family Medicine; PCP Family Medicine
DX: R10.9 Unspecified abdominal pain (principal); R11.0 Nausea; Z93.3 Colostomy status; I12.0 Hypertensive chronic kidney disease with stage 5 chronic kidney disease or end stage renal disease; N18.6 End stage renal disease; F41.9 Anxiety disorder, unspecified; F32.9 Major depressive disorder, single episode, unspecified; Z90.49 Acquired absence of other specified parts of digestive tract; Z79.82 Long term (current) use of aspirin; Z79.4 Long term (current) use of insulin; Z79.899 Other long term (current) drug therapy; Z72.0 Tobacco use
CPT/HCPCS: 74176; 80053; 83605; 83690; 85025; 96374; 96375; 96376; 99283; A4216

== ENCOUNTER 2017-12-28 13:15 | Emergency (ER) | payer MEDICARE, MEDICAID, SELFPAY ==
--- NOTE | 2017-12-28 12:16 | EKG12_ITS ---
Test Reason : CP Blood Pressure : / mmHG Vent. Rate : 087 BPM Atrial Rate : 087 BPM P-R Int : 132 ms QRS Dur : 090 ms QT Int : 414 ms P-R-T Axes : 055 062 214 degrees QTc Int : 498 ms Normal sinus rhythm T wave abnormality, consider inferior ischemia Abnormal ECG Confirmed by DIVINA BEASLEY, SUSI ([id number]), food editor SHANIA SOLITARIO ([id number] on 01/03/2018 5:29:32 PM Referred By: Chuyita Gonzales Confirmed By:SUSI MURCIA MD
--- NOTE | 2017-12-28 13:45 | DT_ITS ---
This patient was seen during an EMR downtime December 25, 2017 - January 01, 2018. This patient may have a combination of paper and electronic documentation or all paper documentation. All documentation is viewable within the e-chart portion of [employer] for each patient visit.
--- NOTE | 2017-12-28 15:30 | RAD_ITS ---
STUDY: X-RAY CHEST REASON FOR EXAM: Female, 42 years old. Chest pain. TECHNIQUE: PA and lateral views of the chest. COMPARISON: Portable AP upright chest x-ray November 14, 2017. FINDINGS: The lungs are clear and expanded. There is no demonstrated pleural abnormality. Normal size heart. Normal mediastinum and latrell. Normal visualized pulmonary arteries. Normal visualized aortic arch and descending thoracic aorta. There are degenerative changes of the lowermost thoracic spine and a thoracolumbar levoscoliosis. There are chronic deformities of the posterolateral left 3-6 ribs, consistent with old healed fractures. Normal visualized right ribs, clavicles, and shoulders. There is no demonstrated abnormality of the visualized soft tissue structures of the upper abdomen. RAD/Chest PA and Lateral IMPRESSION: No acute cardiopulmonary disease. Electronically Signed: Stan Lee MD at 12:18 EDT , Service support ,
[2017-12-30 14:21] LABS: Anion Gap 8 (5-15); BUN 21 mg/dL (7-18); BUN/Creat Ratio 6.3 RATIO (10-20); Calcium,Total 7.8 mg/dL (8.5-10.1); Chloride 98 mmol/L (98-107); Creatinine, Serum 3.35 mg/dL (0.55-1.02); EST Glomerular Filtration Rate 16 mL/min (>60); Est Glom Filt Rate - Afr Amer 19 mL/min (>60); Glucose 319 mg/dL (74-106); Potassium 3.5 mmol/L (3.5-5.1); Sodium Level 140 mmol/L (136-145)
[2018-01-03 12:03] LABS: Red Blood Count 6.72 M/mm3 (4.0-5.9); White Blood Count 2.7 K/mm3 (4.4-11.0)
[2018-01-03 12:04] LABS: Absolute Lymphocyte Count 0.81 X10^3/ul (0.83-4.51); Absolute Neutrophil Count 1.7 X10^3/uL (2.0-7.7); Eosinophils% 4.7 % (0-5); Hematocrit 66.2 % (37-47); Hemoglobin 22.6 g/dl (12.0-15.0); Lymphocyte % 29.6 % (19-41); Mean Corp Hgb Conc 34.1 g/gl (32-36); Mean Corpuscular Hgb 33.6 pg (27.0-32.0); Mean Corpuscular Volume 98.5 fL (81-99); Mean Platelet Vol. 9.5 fl (6.2-12.0); Monocyte% 2.9 % (0-10); Neutrophil % 62.4 % (47-70); POSITIVE COUNT YES; POSITIVE DIFFERENTIAL NO; POSITIVE MORPHOLOGY NO; Platelet Count 49 K/mm3 (250-450); RBC Distribution Width CV 14.8 % (11.6-14.6); RBC Distribution Width SD 53.5 fl (35.1-43.9)
[2018-01-04 10:08] LABS: Pathologist Review Reviewed
== END 2017-12-28 16:10 | disposition home or self-care (01) ==
LOC: ED 12-29 09:24
PROVIDERS: Emergency Provider Emergency Medicine; Family Provider Family Medicine; PCP Family Medicine
DX: R07.9 Chest pain, unspecified (principal); E78.00 Pure hypercholesterolemia, unspecified; E11.22 Type 2 diabetes mellitus with diabetic chronic kidney disease; I13.2 Hypertensive heart and chronic kidney disease with heart failure and with stage 5 chronic kidney disease, or end stage renal disease; I50.9 Heart failure, unspecified; N18.6 End stage renal disease; J44.9 Chronic obstructive pulmonary disease, unspecified; G47.30 Sleep apnea, unspecified; I25.2 Old myocardial infarction; Z86.19 Personal history of other infectious and parasitic diseases; Z95.1 Presence of aortocoronary bypass graft; Z99.2 Dependence on renal dialysis; Z90.89 Acquired absence of other organs; Z79.899 Other long term (current) drug therapy; F17.210 Nicotine dependence, cigarettes, uncomplicated
CPT/HCPCS: 71046; 80048; 84484; 85025; 93005; 96374; 99283

== ENCOUNTER 2018-01-01 14:23 | Outpatient (RCR) | payer MEDICARE, MEDICAID, SELFPAY ==
[2017-12-22 01:05] VITALS: PULSE 89; RESP 18; TEMP 35.3
== END 2018-01-20 23:59 ==
LOC: WC 14:23
PROVIDERS: Family Provider Family Medicine; PCP Family Medicine; Visit Provider Surgery
DX: Z09 Encounter for follow-up examination after completed treatment for conditions other than malignant neoplasm (principal)
CPT/HCPCS: 99212; A4216; G0463

== ENCOUNTER 2018-01-11 08:30 | Observation (INO) | payer MEDICARE, MEDICAID, SELFPAY ==
[2018-01-11] VITALS (16 sets, daily range): BP systolic 151–210; BP diastolic 66–95; PULSE 87–101; RESP 16–30; TEMP 36.6–36.7; O2SAT 91–97; BMI 32.4; BMI 32.3
[2018-01-11 09:06] LABS: Absolute Neutrophil Count 6.2 X10^3/uL (2.0-7.7); Basophil# 0.02 X10^3/uL; Basophil% 0.3 % (0-1); Eosinophil# 0.22 X10^3/uL; Hematocrit 28.3 % (37-47); Hemoglobin 9.2 g/dl (12.0-15.0); Lymphocyte % 10.8 % (19-41); Mean Corp Hgb Conc 32.5 g/gl (32-36); Mean Corpuscular Hgb 32.4 pg (27.0-32.0); Mean Corpuscular Volume 99.6 fL (81-99); Mean Platelet Vol. 9.4 fl (6.2-12.0); Monocyte% 2.7 % (0-10); Neutrophil # 6.18 X10^3/uL (2.7-7.7); Neutrophil % 83.1 % (47-70); POSITIVE COUNT NO; POSITIVE DIFFERENTIAL NO; POSITIVE MORPHOLOGY NO; Platelet Count 147 K/mm3 (150-450); RBC Distribution Width CV 15.4 % (11.6-14.6); RBC Distribution Width SD 55.5 fl (35.1-43.9); Red Blood Count 2.84 M/mm3 (4.2-5.4); White Blood Count 7.4 K/mm3 (4.4-11.0)
[2018-01-11 09:20] LABS: ALB/GLOB Ratio 0.6 RATIO (0.9-2.4); AST(SGOT) 25 U/L (15-37); Alanine Aminotransfer ALT/SGPT 32 U/L (13-56); Albumin, Serum 2.9 g/dL (3.2-5.0); Alkaline Phosphatase 96 U/L (45-117); Anion Gap 11 (5-15); BUN 56 mg/dL (7-18); BUN/Creat Ratio 8.2 RATIO (10-20); Calcium,Total 8.4 mg/dL (8.5-10.1); Chloride 107 mmol/L (98-107); Creatinine, Serum 6.85 mg/dL (0.55-1.02); EST Glomerular Filtration Rate 7 mL/min (>60); Est Glom Filt Rate - Afr Amer 8 mL/min (>60); Estimated Creatinine Clearance 9.81 ml/min; Globulin 5.1 g/dL (2.2-4.2); Glucose 169 mg/dL (74-106); Lipase 283 U/L (73-393); Potassium 5.2 mmol/L (3.5-5.1); Sodium Level 138 mmol/L (136-145)
--- NOTE | 2018-01-11 09:20 | CT_ITS ---
STUDY: CT ABDOMEN AND PELVIS WITHOUT CONTRAST REASON FOR EXAM: Female, 42 years old. 5 day history of nausea and vomiting and abdominal pain. History of colostomy. RADIATION DOSAGE (If Supplied By Facility): CTDIvol = ( 21.77 ) mGy, DLP = ( 1066.10 ) mGycm TECHNIQUE: Transaxial images were obtained from the dome of the diaphragm to the symphysis pubis without oral contrast, and without intravenous contrast. Sagittal and coronal images were reconstructed. Individualized dose optimization techniques were used for this CT. COMPARISON: Comparison is made with prior study dated December 24, 2017. FINDINGS: Since prior study, there has been a progression of the interstitial thickening in both lower lobes. There are areas of coalescence. Small bilateral pleural effusions. Coronary artery calcification. Normal liver. Kevin's lobe of the liver. This is a normal variant. Normal gallbladder and extrahepatic biliary system. Normal spleen. Normal pancreas. There is a small, circumscribed, smooth, low attenuation left adrenal mass, consistent with an adrenal adenoma. This measures 2.2 cm. Normal right adrenal gland. Normal right kidney. Normal left kidney. Stable mild bilateral perinephric stranding. Normal visualized stomach. Normal small intestine. Normal colon. An ostomy is seen in the anterior mid abdomen. There is a parastomal ventral hernia at the colostomy site. There is also evidence of a right lateral anterior abdominal wall hernia containing fat. The hernia neck is 3.2 cm cyst. There is diffuse atherosclerotic calcification of the abdominal aorta, without a demonstrated aneurysm. Extensive calcification of the visceral branches of the aorta including the mesenteric and celiac arteries and the renal arteries and their branches. Normal inferior vena cava. Normal retroperitoneum. Normal urinary bladder. There is absence of the uterus consistent with a prior hysterectomy. There are diffuse degenerative changes of the visualized lumbar spine. Straightening of the normal lumbar lordosis. CT/Abdomen/Pelvis without Cont IMPRESSION: Small bilateral pleural effusions with progressive increased interstitial markings in both lower lobes. An element of CHF should be ruled out. Stable appearance of the abdomen. Electronically Signed: Josh Hill MD at 10:33 EDT Tel [phone], Service support ,
[2018-01-11] MEDS: 0.9% Normal Saline 1,000 ML 125 ML IV (09:27)
[2018-01-11] MEDS: proMETHazine 25 MG/ML Syringe 12.5 MG IV ×2 (09:27→14:18)
[2018-01-11 09:45] LABS: Mucous, Urine 0 SEEN /hpf (<or=2+); White Blood Cells 0 SEEN /hpf (0-5)
[2018-01-11 09:47] LABS: Color, Urine Yellow (Yellow); Glucose, Dipstick 250 mg/dl (Normal); Ketone-Dipstick Negative (Negative); Leukocyte Esterase-Dipstick Negative /ul (Negative); Nitrite-Dipstick Negative (Negative); Occult Blood-Urine 25 /ul (Negative); Protein-Dipstick 100 mg/dl (Negative); Urine Bilirubin Dipstick Negative (Negative); Urine Clarity Sl. Cloudy (Clear); Urine Urobilinogen Normal (Normal)
[2018-01-11] MEDS: Morphine 4 MG/ML Syringe IV ×2 (09:48→11:01)
[2018-01-11 09:53] LABS: Bacteria RARE /hpf (None Seen); Red Blood Cells-Urine 0-5 SEEN /hpf (0-5); Squamous Epithelial Cells - UA 0-5 SEEN /hpf (5-10)
--- NOTE | 2018-01-11 10:35 | ED.RN ---
PT C/O PAIN RETURNING AND NAUSEA. PT BP ELEVATED. PER PT UNABLE TO KEEP BP MEDS DOWN THIS AM D/T VOMITING. DR TUCKER NOTIFIED
[2018-01-11] MEDS: Ondansetron 4 MG/2 ML Vial IV (10:59)
--- NOTE | 2018-01-11 10:59 | ED.RN ---
Addendum entered by Ale Oneil 01/11/18 10:59: DR TUCKER NOTIFIED. EKG ORDERED Original Note: PT C/O TIGHTNESS AND PAIN IN LEFT RIBS
[2018-01-11] MEDS: hydrALAZINE 20 MG/ML Vial 5 MG IV (11:03)
--- NOTE | 2018-01-11 11:08 | ED.RN ---
AFTER RECEIVING MORPHINE, PT PULSE OX 88% ON 2L VIA NC. OXYGEN INCREASED TO 3L
--- NOTE | 2018-01-11 11:24 | ED.VISSUMM ---
- ER Visit Summary Date of Service: 01/11/18 Chief Complaint: [Vomiting, diarrhea, abdominal pain] History of Present Illness: The patient is a 42 F [presents the emergency department with symptoms for the last 5 days. Patient was seen at [place] emergency department 2 days ago for the same complaint and was given Phenergan suppositories to put in her colostomy however she states that she continues to vomit every time she tries to eat or drink anything. Patient states that she has been vomiting up her medications. Patient is a dialysis patient and was not able to go today because she was not feeling well. Patient denies any fever. Patient is currently on clindamycin for an abscessed tooth. Patient's had some chills. Patient states that her parents recently both had stomach flulike symptoms. Past medical history also significant for coronary artery disease, hypertension, high cholesterol, history of C. difficile, depression, anxiety, obesity, gastroparesis. Her surgical history includes appendectomy, hysterectomy, , colostomy, PDA repair.] Physical Examination: [HEENT-PERRLA, EOMI. Cranial nerves II through XII grossly intact. TMs clear. Mucous membranes moist. No adenopathy. Cardiovascular-regular rate and rhythm without murmur or ectopy Lungs-clear to auscultation, chest wall stable without crepitus or subcu emphysema Abdomen-normoactive bowel sounds, soft. Patient has diffuse tenderness on palpation with out rebound, rigidity, or peritoneal signs. Patient's colostomy appears intact and she has some formed stool however only small amount within the colostomy bag. Extremities-intact ?4, normal range of motion, normal pulses, atraumatic] Test Results: [CBC with differential obtained showed a white blood cell count 7.4, hemoglobin 9.2, hematocrit 28, platelets 147. Chemistries unremarkable other than a potassium of 5.2. Her BUN was 56 and creatinine was 6.85. LFTs were normal. Lipase was normal. Urinalysis was normal. CT scan of the flank obtained showed small bilateral pleural effusions and some component of CHF. Nothing acute in the abdomen otherwise.] Emergency Department Course and Treatment: [His blood pressure did elevate over 200 systolic and patient states that she vomited up her blood pressure medicine this morning therefore she did receive hydralazine 5 mg IV. Patient was medicated with Phenergan and morphine ?2. Patient continues to not feel well and continues to complain of abdominal pain and nausea.] Treatment Plan: [Admit for gentle hydration and symptom management. Patient also will require dialysis.] Disposition: [Admit Impression: [Gastroenteritis Intractable nausea vomiting Hyperkalemia Chronic renal failure This note was generated with [employer] dictation software. It may contain incorrect words, spelling, and punctuation that were not noted in review of the chart prior to signing ED Disposition - Plan for ED Patient: Chief Complaint: Nausea/Vomiting/Diarrhea Referrals: Christopher Foy MD [Primary Care Provider] -
--- NOTE | 2018-01-11 11:42 | PCM.HP.STD ---
Problem List (1) Intractable nausea and vomiting Status: Acute Qualifiers: Vomiting type: unspecified Qualified Code(s): R11.2 - Nausea with vomiting, unspecified (2) Tooth abscess Status: Acute (3) Hyperkalemia Status: Acute (4) ESRD (end stage renal disease) on dialysis Status: Chronic (5) Clostridium difficile enterocolitis Status: Resolved (6) CAD (coronary artery disease) Status: Chronic Qualifiers: Coronary Disease-Associated Artery/Lesion type: unspecified vessel or lesion type [place] vs. transplanted heart: unspecified whether [place] or transplanted heart Associated angina: angina presence unspecified Qualified Code(s): I25.10 - Atherosclerotic heart disease of [place] coronary artery without angina pectoris (7) Anemia, chronic disease Status: Chronic (8) GABRIEL (obstructive sleep apnea) Status: Chronic (9) Depression Status: Chronic Qualifiers: Depression Type: unspecified (10) Anxiety Status: Chronic (11) HTN (hypertension) Status: Chronic Qualifiers: Hypertension type: essential hypertension (12) Nonischemic cardiomyopathy Status: Chronic Comment: With ejection fraction 45 - 50%; with angiographically normal coronary arteries 05/2013; follows up with Dr. Magdaleno (13) S/P repair of PDA (patent ductus arteriosus) Status: Chronic Comment: At young age (12) Diabetes mellitus type 1 Status: Chronic Qualifiers: Diabetes mellitus complication status: with unspecified complications Qualified Code(s): E10.8 - Type 1 diabetes mellitus with unspecified complications (15) Hyperlipidemia Status: Chronic Qualifiers: Hyperlipidemia type: unspecified (16) Obesity (BMI 30.0-34.9) Status: Chronic (17) Gastroparesis Status: Chronic History of Present Illness Date of Admission: 01/11/18 Chief Complaint: Abdominal pain, nausea, emesis, loose stools in colostomy. The patient is a 42 y/o F w/ PMHx: ESRD on HD T//Mon missing 01/11/18 HD secondary to acute illness, Diabetes mellitus type II w/ Neuropathy and Gastroparesis, HTN, HLD, Tobacco use, Obesity, LV Diastolic Dysfx, Systolic CHF, CAD s/p 2013 catheterization w/ mild LAD disease w/ medical therapy only, Anxiety and Depression, AOCD/Fe deficiency anemia who presents to the [facility] ED on 01/11/18 with history of ongoing, unrelenting nausea, emesis, increased stool output, more liquid than normal from ostomy and concurrent cramping and intermittently sharp abdominal pain x 5 days, seen 2 days prior in the ED and at that time administered phenergan with improvement. Patient does report recent tooth abscess and was placed on clindamycin which she has not been able to take secondary to her intractable nausea and emesis. in the ED upon current presentation in [facility] ED, administered phenergan without improvement. In the ED work-up included T 98, heart rate 99, BP 164/84 did increase to 210/94 secondary to inability to take her oral hypertensive regimen this morning-->improved to 155/76, respiratory rate 18, 95% on 2 L nasal cannula, CBC with WBC 7.4, hemoglobin 9.2, platelet 147 with mild left shift, CMP with potassium 5.2, carbon dioxide 20, BUN/creatinine 56/6.85, glucose 169, lipase 283, UA not market appearing and specific gravity moderate, CT A/P with small bilateral pleural effusions with progressive increased interstitial markings in both lower lobes, stable appearance of the abdomen. In the emergency room patient gently hydrated and was medicated with IV hydralazine in addition to Phenergan and morphine. Past Medical History Past Medical History (Chronic Problems): Chronic Problems ESRD (end stage renal disease) on dialysis (Chronic) Decubitus ulcer, stage III (Chronic) CAD (coronary artery disease) (Chronic) Anemia, chronic disease (Chronic) Pilonidal cyst with abscess (Chronic) GABRIEL (obstructive sleep apnea) (Chronic) ESRD on dialysis (Chronic) Depression (Chronic) Anxiety (Chronic) HTN (hypertension) (Chronic) Nonischemic cardiomyopathy (Chronic) With ejection fraction 45 - 50%; with angiographically normal coronary arteries 05/2013; follows up with Dr. Magdaleno S/P repair of PDA (patent ductus arteriosus) (Chronic) At young age Diabetes mellitus type 1 (Chronic) Hyperlipidemia (Chronic) Obesity (BMI 30.0-34.9) (Chronic) Gastroparesis (Chronic) Allergies latex Allergy (Verified 01/11/18 08:30) Rash levofloxacin [From Levaquin] Adverse Reaction (Verified 01/11/18 08:30) PT CAN'T REMEMBER PT CAN'T REMEMBER metoclopramide HCl [From Reglan] Adverse Reaction (Verified 01/11/18 08:30) Nausea NSAIDS (Non-Steroidal Anti-Inflamma Adverse Reaction (Verified 01/11/18 08:30) kidney function oxycodone HCl [From Percocet] Adverse Reaction (Verified 01/11/18 08:30) HALLUCINATIONS Home Medications: Ambulatory Orders Medication Instructions Recorded Diltiazem HCl [Tiazac] 240 mg PO DAILY 07/10/15 Aspirin [Aspirin, Baby] 81 mg PO DAILY@0800 01/26/16 Calcium Acetate [Phoslo Gel Cap] 667 mg PO TIDCM 01/26/16 Ergocalciferol [Vitamin D] 50,000 unit PO FR 01/26/16 Insulin Aspart [Novolog Flexpen] 8 units SC TIDCM 01/26/16 Insulin Glargine,Hum.rec.anlog 5 unit SQ QHS 01/09/17 [Lantus] proMETHazine tablet [Phenergan 25 mg PO Q6H PRN PRN #10 tablet 03/06/17 tablet] Lisinopril 20 mg PO DAILY 03/29/17 Sodium Bicarbonate 650 mg PO TUTHSA 03/29/17 Carvedilol [Coreg (Beta Chang)] 25 mg PO BID 06/17/17 Fluoxetine HCl 40 mg PO DAILY 09/02/17 hydrALAZINE [Apresoline] 25 mg PO TID 11/05/17 Atorvastatin Calcium 10 mg PO QHS #30 tab 11/16/17 Isosorbide DN [Isordil] 20 mg PO TID #90 tab 11/16/17 ALPRAZolam [Xanax] 0.5 mg PO DAILY 11/21/17 Famotidine [Pepcid] 20 mg PO DAILY 11/21/17 Clindamycin HCl [Clindamycin HCl] 300 mg PO BID 01/11/18 Surgical History: appendectomy, hysterectomy - and BSO, - - c-sections, L breast I+D for abscess, fistula placement LUE, L ankle surgery, appendectomy, PDA repair. Excision pilonidal cyst ulcer about 4 years ago. 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 Denies: Chills, Fever, Weight Change HEENT: Denies: Head Aches, Sinus Congestion, Sinus Drainage Cardiovascular: Denies: Chest Pain, Chest Pressure, Chest Tightness, Palpitations Respiratory: Denies: Cough, Shortness of breath at rest, Sputum production Gastrointestinal: Reports: Abdominal Pain, Nausea, Vomiting, - - More loose, liquid stools in colostomy. Genitourinary: Denies: Dysuria, Retention Musculoskeletal: Reports: Back Pain. Denies: Joint Pain, Joint Tenderness Skin: Denies: Rash, Wounds Neurological: Denies: Confusion, Focal weakness, Numbness, Tingling Psychiatric: Reports: Anxiety, Depression. Denies: Homicidal Ideations, Suicidal Ideations Hematologic/ Lymphatic: Reports: Anemia. Denies: Easy Bruising, Easy Bleeding VTE Information - Inpt Only VTE Present on Admission: No VTE Mechan Device Prophylaxis: SCD's VTE Pharm Prophylaxis ordered?: Yes Patient Problems: Active and Suspected Problems Tooth abscess (Acute) Intractable nausea and vomiting (Acute) Subjective: Seated upright in the bed, fatigued appearance, recent sedated regimen administrated, notes improvement of nausea and emesis. Objective: Physical Examination: General: awakens to stimuli, fatigued, intermittently alert, oriented x 3 and cooperative, lying in bed, improved appearance, notes improved nausea and emesis. Skin: normal color, turgor, no icterus, cyanosis. HEENT: AT/NC, EOMI, PERRLA, mildly dry MM, no carotid bruits or JVD noted. Lungs: Diminished BS BL, > bases, moderate effort, no rales, ronchi or wheezing. Heart: Regular rate and rhythm; no gallop, rub audible. Abdomen: soft, obese, unable to elicit any pain, ND, mildly hyperactive BS, no HSM. Extremities: no cyanosis, clubbing, mild ankle edema, LUE AVF. Neurological: awakens to stimuli, fatigued, intermittently alert, oriented x 3 and cooperative, lying in bed, improved appearance, notes improved nausea and emesis; cognitive function mildly decreased, likely secondary to sedative regimen, otherwise intact; pupils equally reactive to light and accomodation; cranial nerves II-XII grossly normal, moving all 4 extremities, no focal deficits, strength moderately to severely globally decreased. Psychiatric: affect appears fatigued, mildly flat, no acute evidence of depressive or anxiety feelings. - Physical Exam Vital Signs Temp Pulse Resp BP Pulse Ox 98.0 F 97 30 H 188/95 H 94 01/11/18 08:31 01/11/18 11:04 01/11/18 11:04 01/11/18 11:04 01/11/18 11:04 Oxygen Flow Rate (L/min) 2 Oxygen Delivery Method Nasal Cannula Weight: 201 lb 3.2 oz Body Mass Index (BMI) 32.4 Finger Stick Blood Glucose 118 Laboratory Tests Past 24 Hrs 01/11/18 01/11/18 01/11/18 08:56 08:56 09:40 WBC 7.4 RBC 2.84 L Hgb 9.2 L Hct 28.3 L MCV 99.6 H MCH 32.4 H MCHC 32.5 RDW 15.4 H RDW Differential 55.5 H Plt Count 147 L MPV 9.4 Immature Gran % (Auto) 0.100 Neut % (Auto) 83.1 H Lymph % (Auto) 10.8 L [place] % (Auto) 2.7 Eos % (Auto) 3.0 Baso % (Auto) 0.3 Absolute Neuts (auto) 6.2 Absolute Lymphs (auto) 0.80 L Total Counted Not Reportable Sodium 138 Potassium 5.2 H Chloride 107 Carbon Dioxide 20.0 L Anion Gap 11 BUN 56 H Creatinine 6.85 H Estim Creat Clear Calc 9.81 Est GFR (MDRD) Af Amer 8 L Est GFR (MDRD) Non-Af 7 L BUN/Creatinine Ratio 8.2 L Glucose 169 H Calcium 8.4 L Total Bilirubin 0.40 AST 25 ALT 32 Alkaline Phosphatase 96 Total Protein 8.0 Albumin 2.9 L Globulin 5.1 H Albumin/Globulin Ratio 0.6 L Lipase 283 Urine Color Yellow Urine Clarity Sl. Cloudy Urine pH 7.0 Ur Specific [place] 1.010 Urine Protein 100 H Urine Glucose (UA) 250 H Urine Ketones Negative Urine Occult Blood 25 H Urine Nitrite Negative Urine Bilirubin Negative Urine Urobilinogen Normal Ur Leukocyte Esterase Negative Urine RBC 0-5 SEEN Urine WBC 0 SEEN Ur Squamous Epith Cells 0-5 SEEN Urine Bacteria RARE Urine Mucus 0 SEEN Assessment/Plan All Active Problems Tooth abscess (Acute) Intractable nausea and vomiting (Acute) Pneumonia (Resolved) Pulmonary edema (Acute) Hyperkalemia (Acute) Atypical chest pain (Acute) Acute hypoxic respiratory failure (Acute) Pulmonary edema (Acute) Clostridium difficile enterocolitis (Resolved) Necrotizing myositis (Resolved) Dysmenorrhea (Resolved) Hx of necrotizing fascIItis (Resolved) Iron deficiency anemia due to chronic blood loss (Resolved) Systolic congestive heart failure (Resolved) The patient is a 42 y/o F w/ PMHx: ESRD on HD T//Mon missing 01/11/18 HD secondary to acute illness, Diabetes mellitus type II w/ Neuropathy and Gastroparesis, HTN, HLD, Tobacco use, Obesity, LV Diastolic Dysfx, Systolic CHF, CAD s/p 2012 catheterization w/ mild LAD disease w/ medical therapy only, Anxiety and Depression, AOCD/Fe deficiency anemia who presents to the [facility] ED on 01/11/18 with history of ongoing, unrelenting nausea, emesis, increased stool output, more liquid than normal from ostomy and concurrent cramping and intermittently sharp abdominal pain x 5 days. (1) N/V/D, ? Viral Gastroenteritis: Given elevated BP will admit to PCU, gently hydrate given missed HD and underlying CHF history awaiting HD this evening, will obtain c diff, stool cx, on unasyn for tooth abscess given inability to tolerate oral regimen (clindamycin outpatient, not best option given c-diff history), Anti-emetics, pain regimen PRN. Once improved, allow clear liquids and ADAT. (2) Recent Tooth Abscess: Placed on clindamycin outpatient, unable to tolerate regimen, transition to Unasyn given oral intolerance, once able transition to oral regimen, place additionally once able on lactobacillus. Clindamycin more high risk medication for her given notable c-diff history. (3) ESRD on HD: Consulted Nephrology, continue with routine HD regimen, pending HD this evening per discussion with staff. (4) Chronic systolic CHF, CM, Diastolic DysFx, CAD: EF 45-50% w/ 05/2013 normal cardiac catheterization per Dr. Magdaleno, continue asa, BB, ACEI, statin. Pending HD as noted mild congestion on CT A/P, gently hydrated in the ED. (5) Diabetes mellitus type II w/ Neuropathy, Gastroparesis: Hold short acting insulin given n.p.o. status, continue long-acting with potentially one half dose if blood sugar low, once tolerating clears and able to advance transition to ADA diet, accu checks w/ ISS. (6) Hypertension: Elevated in the ED secondary to missed regimen this AM with emesis, improved with IV PRN regimen, improving nausea and emesis thus will restart home coreg, lisinopril, Cardizem, Isordil, PRN hydralazine. (7) Hyperlipidemia: Continue home statin regimen. (8) Depression and Anxiety: Continue home Prozac, Xanax regimen once able to tolerate oral regimen. (9) Tobacco Abuse: Encouraged cessation, inpatient consultation per RT, NR if desired. (10) Obesity: Weight loss and lifestyle changes encouraged. (11) GERD: IV PPI until improving then transition back to oral regimen. (12) AOCD, Fe deficiency anemia: Admission Hgb 9.2, trend. (13) DVT Prophylaxis: SCDs, heparin. Code Visit OBSV E&M: 67281 Initial observation care L3
--- NOTE | 2018-01-11 11:53 | HP.PCM_ITS ---
Problem List (1) Intractable nausea and vomiting Status: Acute Qualifiers: Vomiting type: unspecified Qualified Code(s): R11.2 - Nausea with vomiting , unspecified (2) Tooth abscess Status: Acute (3) Hyperkalemia Status: Acute (4) ESRD (end stage renal disease) on dialysis Status: Chronic (5) Clostridium difficile enterocolitis Status: Resolved (6) CAD (coronary artery disease) Status: Chronic Qualifiers: Coronary Disease-Associated Artery/Lesion type: unspecified vessel or lesion type [place] vs. transplanted heart: unspecified whether [place] or transplanted heart Associated angina: angina presence unspecified Qualified Code(s): I25.10 - Atherosclerotic heart disease of [place] coronary artery without angina pectoris (7) Anemia, chronic disease Status: Chronic (8) GABRIEL (obstructive sleep apnea) Status: Chronic (9) Depression Status: Chronic Qualifiers: Depression Type: unspecified (10) Anxiety Status: Chronic (11) HTN (hypertension) Status: Chronic Qualifiers: Hypertension type: essential hypertension (12) Nonischemic cardiomyopathy Status: Chronic Comment: With ejection fraction 45 - 50%; with angiographically normal coronary arteries 05/2013; follows up with Dr. Magdaleno (13) S/P repair of PDA (patent ductus arteriosus) Status: Chronic Comment: At young age (12) Diabetes mellitus type 1 Status: Chronic Qualifiers: Diabetes mellitus complication status: with unspecified complications Qualified Code(s): E10.8 - Type 1 diabetes mellitus with unspecified complications (15) Hyperlipidemia Status: Chronic Qualifiers: Hyperlipidemia type: unspecified (16) Obesity (BMI 30.0-34.9) Status: Chronic (17) Gastroparesis Status: Chronic History of Present Illness Date of Admission: 01/11/18 Chief Complaint: Abdominal pain, nausea, emesis, loose stools in colostomy. The patient is a 42 y/o F w/ PMHx: ESRD on HD T//Mon missing 01/11/18 HD secondary to acute illness, Diabetes mellitus type II w/ Neuropathy and Gastroparesis, HTN, HLD, Tobacco use, Obesity, LV Diastolic Dysfx, Systolic CHF , CAD s/p 2013 catheterization w/ mild LAD disease w/ medical therapy only, Anxiety and Depression, AOCD/Fe deficiency anemia who presents to the [facility] ED on 01/11/18 with history of ongoing, unrelenting nausea, emesis, increased stool output, more liquid than normal from ostomy and concurrent cramping and intermittently sharp abdominal pain x 5 days, seen 2 days prior in the ED and at that time administered phenergan with improvement. Patient does report recent tooth abscess and was placed on clindamycin which she has not been able to take secondary to her intractable nausea and emesis. in the ED upon current presentation in [facility] ED, administered phenergan without improvement. In the ED work-up included T 98, heart rate 99, BP 164/84 did increase to 210/94 secondary to inability to take her oral hypertensive regimen this morning--> improved to 155/76, respiratory rate 18, 95% on 2 L nasal cannula, CBC with WBC 7.4, hemoglobin 9.2, platelet 147 with mild left shift, CMP with potassium 5.2, carbon dioxide 20, BUN/creatinine 56/6.85, glucose 169, lipase 283, UA not market appearing and specific gravity moderate, CT A/P with small bilateral pleural effusions with progressive increased interstitial markings in both lower lobes, stable appearance of the abdomen. In the emergency room patient gently hydrated and was medicated with IV hydralazine in addition to Phenergan and morphine. Past Medical History Past Medical History (Chronic Problems): Chronic Problems ESRD (end stage renal disease) on dialysis (Chronic) Decubitus ulcer, stage III (Chronic) CAD (coronary artery disease) (Chronic) Anemia, chronic disease (Chronic) Pilonidal cyst with abscess (Chronic) GABRIEL (obstructive sleep apnea) (Chronic) ESRD on dialysis (Chronic) Depression (Chronic) Anxiety (Chronic) HTN (hypertension) (Chronic) Nonischemic cardiomyopathy (Chronic) With ejection fraction 45 - 50%; with angiographically normal coronary arteries 05/2013; follows up with Dr. Magdaleno S/P repair of PDA (patent ductus arteriosus) (Chronic) At young age Diabetes mellitus type 1 (Chronic) Hyperlipidemia (Chronic) Obesity (BMI 30.0-34.9) (Chronic) Gastroparesis (Chronic) Allergies latex Allergy (Verified 01/11/18 08:30) Rash levofloxacin [From Levaquin] Adverse Reaction (Verified 01/11/18 08:30) PT CAN'T REMEMBER PT CAN'T REMEMBER metoclopramide HCl [From Reglan] Adverse Reaction (Verified 01/11/18 08:30) Nausea NSAIDS (Non-Steroidal Anti-Inflamma Adverse Reaction (Verified 01/11/18 08:30) kidney function oxycodone HCl [From Percocet] Adverse Reaction (Verified 01/11/18 08:30) HALLUCINATIONS Home Medications: Ambulatory Orders Medication Instructions Recorded Diltiazem HCl [Tiazac] 240 mg PO DAILY 07/10/15 Aspirin [Aspirin, Baby] 81 mg PO DAILY@0800 01/26/16 Calcium Acetate [Phoslo Gel Cap] 667 mg PO TIDCM 01/26/16 Ergocalciferol [Vitamin D] 50,000 unit PO FR 01/26/16 Insulin Aspart [Novolog Flexpen] 8 units SC TIDCM 01/26/16 Insulin Glargine,Hum.rec.anlog 5 unit SQ QHS 01/09/17 [Lantus] proMETHazine tablet [Phenergan 25 mg PO Q6H PRN PRN #10 tablet 03/06/17 tablet] Lisinopril 20 mg PO DAILY 03/29/17 Sodium Bicarbonate 650 mg PO TUTHSA 03/29/17 Carvedilol [Coreg (Beta Chang)] 25 mg PO BID 06/17/17 Fluoxetine HCl 40 mg PO DAILY 09/02/17 hydrALAZINE [Apresoline] 25 mg PO TID 11/05/17 Atorvastatin Calcium 10 mg PO QHS #30 tab 11/16/17 Isosorbide DN [Isordil] 20 mg PO TID #90 tab 11/16/17 ALPRAZolam [Xanax] 0.5 mg PO DAILY 11/21/17 Famotidine [Pepcid] 20 mg PO DAILY 11/21/17 Clindamycin HCl [Clindamycin HCl] 300 mg PO BID 01/11/18 Surgical History: appendectomy, hysterectomy - and BSO, - - c-sections, L breast I+D for abscess, fistula placement LUE, L ankle surgery, appendectomy, PDA repair. Excision pilonidal cyst ulcer about 4 years ago. Psychiatric History: Anxiety, Depression FIRST AID DIRECTOR History: No pertinent FIRST AID DIRECTOR history Lives: Alone Smoking Status: Current every day smoker Tobacco Use: Cigarettes Alcohol: None Drugs: None - *Family History Maternal History Items: Cancer, COPD, Diabetes, Hypertension, Renal Disease, Stroke Paternal History Items: Diabetes Sibling History Items: Cancer, Diabetes Review of Systems Constitutional: Reports: Anorexia, Malaise, Weakness, Fatigue. Denies: Chills, Fever, Weight Change HEENT: Denies: Head Aches, Sinus Congestion, Sinus Drainage Cardiovascular: Denies: Chest Pain, Chest Pressure, Chest Tightness, Palpitations Respiratory: Denies: Cough, Shortness of breath at rest, Sputum production Gastrointestinal: Reports: Abdominal Pain, Nausea, Vomiting, - - More loose, liquid stools in colostomy. Genitourinary: Denies: Dysuria, Retention Musculoskeletal: Reports: Back Pain. Denies: Joint Pain, Joint Tenderness Skin: Denies: Rash, Wounds Neurological: Denies: Confusion, Focal weakness, Numbness, Tingling Psychiatric: Reports: Anxiety, Depression. Denies: Homicidal Ideations, Suicidal Ideations Hematologic/ Lymphatic: Reports: Anemia. Denies: Easy Bruising, Easy Bleeding VTE Information - Inpt Only VTE Present on Admission: No VTE Mechan Device Prophylaxis: SCD's VTE Pharm Prophylaxis ordered?: Yes Patient Problems: Active and Suspected Problems Tooth abscess (Acute) Intractable nausea and vomiting (Acute) Subjective: Seated upright in the bed, fatigued appearance, recent sedated regimen administrated, notes improvement of nausea and emesis. Objective: Physical Examination: General: awakens to stimuli, fatigued, intermittently alert, oriented x 3 and cooperative, lying in bed, improved appearance, notes improved nausea and emesis. Skin: normal color, turgor, no icterus, cyanosis. HEENT: AT/NC, EOMI, PERRLA, mildly dry MM, no carotid bruits or JVD noted. Lungs: Diminished BS BL, > bases, moderate effort, no rales, ronchi or wheezing. Heart: Regular rate and rhythm; no gallop, rub audible. Abdomen: soft, obese, unable to elicit any pain, ND, mildly hyperactive BS, no HSM. Extremities: no cyanosis, clubbing, mild ankle edema, LUE AVF. Neurological: awakens to stimuli, fatigued, intermittently alert, oriented x 3 and cooperative, lying in bed, improved appearance, notes improved nausea and emesis; cognitive function mildly decreased, likely secondary to sedative regimen, otherwise intact; pupils equally reactive to light and accomodation; cranial nerves II-XII grossly normal, moving all 4 extremities, no focal deficits, strength moderately to severely globally decreased. Psychiatric: affect appears fatigued, mildly flat, no acute evidence of depressive or anxiety feelings. - Physical Exam Vital Signs Temp Pulse Resp BP Pulse Ox 98.0 F 97 30 H 188/95 H 94 01/11/18 08:31 01/11/18 11:04 01/11/18 11:04 01/11/18 11:04 01/11/18 11:04 Oxygen Flow Rate (L/min) 2 Oxygen Delivery Method Nasal Cannula Weight: 201 lb 3.2 oz Body Mass Index (BMI) 32.4 Finger Stick Blood Glucose 118 Laboratory Tests Past 24 Hrs 01/11/18 01/11/18 01/11/18 08:56 08:56 09:40 WBC 7.4 RBC 2.84 L Hgb 9.2 L Hct 28.3 L MCV 99.6 H MCH 32.4 H MCHC 32.5 RDW 15.4 H RDW Differential 55.5 H Plt Count 147 L MPV 9.4 Immature Gran % (Auto) 0.100 Neut % (Auto) 83.1 H Lymph % (Auto) 10.8 L Carter % (Auto) 2.7 Eos % (Auto) 3.0 Baso % (Auto) 0.3 Absolute Neuts (auto) 6.2 Absolute Lymphs (auto) 0.80 L Total Counted Not Reportable Sodium 138 Potassium 5.2 H Chloride 107 Carbon Dioxide 20.0 L Anion Gap 11 BUN 56 H Creatinine 6.85 H Estim Creat Clear Calc 9.81 Est GFR (MDRD) Af Amer 8 L Est GFR (MDRD) Non-Af 7 L BUN/Creatinine Ratio 8.2 L Glucose 169 H Calcium 8.4 L Total Bilirubin 0.40 AST 25 ALT 32 Alkaline Phosphatase 96 Total Protein 8.0 Albumin 2.9 L Globulin 5.1 H Albumin/Globulin Ratio 0.6 L Lipase 283 Urine Color Yellow Urine Clarity Sl. Cloudy Urine pH 7.0 Ur Specific War 1.010 Urine Protein 100 H Urine Glucose (UA) 250 H Urine Ketones Negative Urine Occult Blood 25 H Urine Nitrite Negative Urine Bilirubin Negative Urine Urobilinogen Normal Ur Leukocyte Esterase Negative Urine RBC 0-5 SEEN Urine WBC 0 SEEN Ur Squamous Epith Cells 0-5 SEEN Urine Bacteria RARE Urine Mucus 0 SEEN Assessment/Plan All Active Problems Tooth abscess (Acute) Intractable nausea and vomiting (Acute) Pneumonia (Resolved) Pulmonary edema (Acute) Hyperkalemia (Acute) Atypical chest pain (Acute) Acute hypoxic respiratory failure (Acute) Pulmonary edema (Acute) Clostridium difficile enterocolitis (Resolved) Necrotizing myositis (Resolved) Dysmenorrhea (Resolved) Hx of necrotizing fascIItis (Resolved) Iron deficiency anemia due to chronic blood loss (Resolved) Systolic congestive heart failure (Resolved) The patient is a 42 y/o F w/ PMHx: ESRD on HD T//Mon missing 01/11/18 HD secondary to acute illness, Diabetes mellitus type II w/ Neuropathy and Gastroparesis, HTN, HLD, Tobacco use, Obesity, LV Diastolic Dysfx, Systolic CHF , CAD s/p 2012 catheterization w/ mild LAD disease w/ medical therapy only, Anxiety and Depression, AOCD/Fe deficiency anemia who presents to the [facility] ED on 01/11/18 with history of ongoing, unrelenting nausea, emesis, increased stool output, more liquid than normal from ostomy and concurrent cramping and intermittently sharp abdominal pain x 5 days. (1) N/V/D, ? Viral Gastroenteritis: Given elevated BP will admit to PCU, gently hydrate given missed HD and underlying CHF history awaiting HD this evening, will obtain c diff, stool cx, on unasyn for tooth abscess given inability to tolerate oral regimen (clindamycin outpatient, not best option given c-diff history), Anti-emetics, pain regimen PRN. Once improved, allow clear liquids and ADAT. (2) Recent Tooth Abscess: Placed on clindamycin outpatient, unable to tolerate regimen, transition to Unasyn given oral intolerance, once able transition to oral regimen, place additionally once able on lactobacillus. Clindamycin more high risk medication for her given notable c-diff history. (3) ESRD on HD: Consulted Nephrology, continue with routine HD regimen, pending HD this evening per discussion with staff. (4) Chronic systolic CHF, CM, Diastolic DysFx, CAD: EF 45-50% w/ 05/2013 normal cardiac catheterization per Dr. Magdaleno, continue asa, BB, ACEI, statin. Pending HD as noted mild congestion on CT A/P, gently hydrated in the ED. (5) Diabetes mellitus type II w/ Neuropathy, Gastroparesis: Hold short acting insulin given n.p.o. status, continue long-acting with potentially one half dose if blood sugar low, once tolerating clears and able to advance transition to ADA diet, accu checks w/ ISS. (6) Hypertension: Elevated in the ED secondary to missed regimen this AM with emesis, improved with IV PRN regimen, improving nausea and emesis thus will restart home coreg, lisinopril, Cardizem, Isordil, PRN hydralazine. (7) Hyperlipidemia: Continue home statin regimen. (8) Depression and Anxiety: Continue home Prozac, Xanax regimen once able to tolerate oral regimen. (9) Tobacco Abuse: Encouraged cessation, inpatient consultation per RT, NR if desired. (10) Obesity: Weight loss and lifestyle changes encouraged. (11) GERD: IV PPI until improving then transition back to oral regimen. (12) AOCD, Fe deficiency anemia: Admission Hgb 9.2, trend. (13) DVT Prophylaxis: SCDs, heparin. Code Visit OBSV E&M: [id number] Initial observation care L3
--- NOTE | 2018-01-11 12:11 | EKG12_ITS ---
Test Reason : SOB/CP Blood Pressure : / mmHG Vent. Rate : 097 BPM Atrial Rate : 097 BPM P-R Int : 132 ms QRS Dur : 092 ms QT Int : 378 ms P-R-T Axes : 063 056 094 degrees QTc Int : 480 ms Normal sinus rhythm Prolonged QT Abnormal ECG Confirmed by WM UNDERWOOD ([id number]), assistant film editor GISELA YOUNG ([id number] on 01/15/2018 2:46:52 PM Referred By: CAITLIN Confirmed By:WM UDNERWOOD
[2018-01-11 13:11] LABS: Magnesium 2.1 mg/dL (1.6-2.6)
[2018-01-11] MEDS: 0.9% NaCl Peripheral Flush Adult/Peds IV (14:22)
[2018-01-11] MEDS: oxyCODONE 5 MG Tablet PO ×2 (16:17→23:48)
--- NOTE | 2018-01-11 16:56 | PCM.CONS.R ---
Problem List (1) ESRD (end stage renal disease) on dialysis Status: Chronic Consultation - Renal 01/11/18 PCP/ Referring MD: Requesting physician: [] Primary care physician: Christopher Foy Reason for Consultation:: ESRD - History of Present Illness History of Present Illness: The patient is a 42 year old F well known to us. ESRD on HD TTS schedule. access is left arm AVF Has known history of Perianal abscess s/p extensive surgery. was supposed to get colostomy reversal this week recently had tooth infection, was given clindamycin. developed nausea, vomitings and abdominal pain - Allergies Allergies: Allergies latex Allergy (Verified 01/11/18 08:30) Rash levofloxacin [From Levaquin] Adverse Reaction (Verified 01/11/18 08:30) PT CAN'T REMEMBER PT CAN'T REMEMBER metoclopramide HCl [From Reglan] Adverse Reaction (Verified 01/11/18 08:30) Nausea NSAIDS (Non-Steroidal Anti-Inflamma Adverse Reaction (Verified 01/11/18 08:30) kidney function oxycodone HCl [From Percocet] Adverse Reaction (Verified 01/11/18 08:30) HALLUCINATIONS - Current Medications Current Medications: Current Medications Alprazolam (Xanax) 0.5 mg PO DAILY [facility] Aspirin (Aspirin, Baby) 81 mg PO DAILY@0800 [facility] Atorvastatin Calcium (Lipitor) 10 mg PO QHS [facility] Calcium Acetate (Phoslo Gel Cap) 667 mg PO TIDCM [facility] Carvedilol (Coreg) 25 mg PO BID [facility] Diltiazem HCl (Cardizem Cd) 240 mg PO DAILY [facility] Last Admin: 01/11/18 16:07 Dose: Not Given Fluoxetine HCl (Prozac) 40 mg PO DAILY [facility] Heparin Sodium (Porcine) (Heparin Na) 5,000 unit SC Q8 [facility] Last Admin: 01/11/18 15:45 Dose: Not Given Hydralazine HCl (Apresoline Iv) 10 mg IV Q4H PRN PRN PRN Reason: SBP > 160 Hydralazine HCl (Apresoline) 25 mg PO TID [facility] Hydromorphone HCl (Dilaudid Inj) 0.5 - 1 mg IV Q3H PRN PRN PRN Reason: SEVERE PAIN (6-10/10) Ampicillin Sodium/Sulbactam (Sodium 3 gm/ Sodium Chloride) 112 mls @ 150 mls/hr IV Q24 [facility] Last Admin: 01/11/18 14:18 Dose: 150 mls/hr Pantoprazole Sodium 40 mg/ (Sodium Chloride) 110 mls @ 330 mls/hr IV Q12 [facility] Insulin Glargine (Lantus (Bkc)) 5 units SC QHS [facility] Insulin Human Lispro (Humalog Kwikpen (Bkc)) 0 unit SC Q6 [place] PRN Reason: Protocol Isosorbide Dinitrate (Isordil) 20 mg PO TID [facility] Lisinopril (Zestril) 20 mg PO DAILY [facility] Last Admin: 01/11/18 16:07 Dose: Not Given Magnesium Hydroxide (Milk Of Magnesia) 30 ml PO DAILY PRN PRN PRN Reason: Constipation Ondansetron HCl (Zofran) 4 mg IV Q6H PRN PRN PRN Reason: NAUSEA Oxycodone HCl (Oxyir) 5 - 10 mg PO Q4H PRN PRN PRN Reason: SEVERE PAIN (6-10/10) Last Admin: 01/11/18 16:17 Dose: 10 mg Promethazine HCl (Phenergan) 12.5 mg IV Q6H PRN PRN PRN Reason: NAUSEA/VOMITING Last Admin: 01/11/18 14:18 Dose: 12.5 mg Sodium Bicarbonate (Sodium Bicarbonate) 650 mg PO TUTHSA [facility] Sodium Chloride () 5 - 30 ml IV UD PRN PRN Reason: SALINE FLUSH Last Admin: 01/11/18 14:22 Dose: 10 ml - Past Medical History Past Medical History (Chronic Problems): Chronic Problems ESRD (end stage renal disease) on dialysis (Chronic) Decubitus ulcer, stage III (Chronic) CAD (coronary artery disease) (Chronic) Anemia, chronic disease (Chronic) Pilonidal cyst with abscess (Chronic) GABRIEL (obstructive sleep apnea) (Chronic) ESRD on dialysis (Chronic) Depression (Chronic) Anxiety (Chronic) HTN (hypertension) (Chronic) Nonischemic cardiomyopathy (Chronic) With ejection fraction 45 - 50%; with angiographically normal coronary arteries 05/2013; follows up with Dr. Magdaleno S/P repair of PDA (patent ductus arteriosus) (Chronic) At young age Diabetes mellitus type 1 (Chronic) Hyperlipidemia (Chronic) Obesity (BMI 30.0-34.9) (Chronic) Gastroparesis (Chronic) - Past Surgical History Surgical History: appendectomy, hysterectomy - and BSO, - - c-sections, L breast I+D for abscess, fistula placement LUE, L ankle surgery, appendectomy, PDA repair. Excision pilonidal cyst ulcer about 4 years ago. - Social History Smoking Status: Current every day smoker Alcohol: None Drugs: None - Family History Maternal History Items: Cancer, COPD, Diabetes, Hypertension, Renal Disease, Stroke Paternal History Items: Diabetes Sibling History Items: Cancer, Diabetes Review of Systems Constitutional: Denies: Chills, Fever, Weight Change HEENT: Denies: Head Aches, Sinus Congestion, Sinus Drainage Cardiovascular: Denies: Chest Pain, Palpitations Respiratory: Denies: Cough, Shortness of breath at rest, Sputum production Gastrointestinal: Denies: Abdominal Pain, Nausea, Vomiting Genitourinary: Denies: Dysuria Musculoskeletal: Denies: Joint Pain, Joint Tenderness Skin: Denies: Rash, Wounds Neurological: Denies: Numbness, Tingling, Focal weakness Psychiatric: Denies: Anxiety, Depression, Homicidal Ideations, Suicidal Ideations Hematologic/ Lymphatic: Denies: Easy Bruising, Easy Bleeding Patient Problems: Active and Suspected Problems Tooth abscess (Acute) Intractable nausea and vomiting (Acute) - Physical Exam General: Alert, Oriented x3, Cooperative HEENT: Atraumatic, PERRLA, EOMI, Normocephalic Neck: Supple, No JVD, Negative Carotid Bruits Lungs: Clear to auscultation, Normal air movement Cardiovascular: Regular rate, No murmurs Abdomen: Bowel Sounds Present, Soft, Non Tender Extremities: No edema, Capillary Refill Less than 3 Seconds Skin: No rashes, No breakdown Musculoskeletal: No Tenderness to Palpation of Joints or Extremities Neurological: Cranial nerves II-XII grossly intact Psych/Mental Status: Normal Affect, Appropriate Vital Signs Temp Pulse Resp BP Pulse Ox 98.0 F 95 18 155/76 H 96 01/11/18 12:42 01/11/18 15:13 01/11/18 12:49 01/11/18 12:42 01/11/18 15:20 Oxygen Flow Rate (L/min) 2 Oxygen Delivery Method Nasal Cannula Weight: 90.7 kg Body Mass Index (BMI) 32.3 Assessment/Plan All Active Problems Tooth abscess (Acute) Intractable nausea and vomiting (Acute) Pneumonia (Resolved) Pulmonary edema (Acute) Hyperkalemia (Acute) Atypical chest pain (Acute) Acute hypoxic respiratory failure (Acute) Pulmonary edema (Acute) Clostridium difficile enterocolitis (Resolved) Necrotizing myositis (Resolved) Dysmenorrhea (Resolved) Hx of necrotizing fascIItis (Resolved) Iron deficiency anemia due to chronic blood loss (Resolved) Systolic congestive heart failure (Resolved) ESRD. HD today. See orders/ flowsheets Diarrhea. ? related to clindamycin.
--- NOTE | 2018-01-11 17:03 | CON.PCM_ITS ---
Problem List (1) ESRD (end stage renal disease) on dialysis Status: Chronic Consultation - Renal 01/11/18 PCP/ Referring MD: Requesting physician: [] Primary care physician: Christopher Foy Reason for Consultation:: ESRD - History of Present Illness History of Present Illness: The patient is a 42 year old F well known to us. ESRD on HD TTS schedule. access is left arm AVF Has known history of Perianal abscess s/p extensive surgery. was supposed to get colostomy reversal this week recently had tooth infection, was given clindamycin. developed nausea, vomitings and abdominal pain - Allergies Allergies: Allergies latex Allergy (Verified 01/11/18 08:30) Rash levofloxacin [From Levaquin] Adverse Reaction (Verified 01/11/18 08:30) PT CAN'T REMEMBER PT CAN'T REMEMBER metoclopramide HCl [From Reglan] Adverse Reaction (Verified 01/11/18 08:30) Nausea NSAIDS (Non-Steroidal Anti-Inflamma Adverse Reaction (Verified 01/11/18 08:30) kidney function oxycodone HCl [From Percocet] Adverse Reaction (Verified 01/11/18 08:30) HALLUCINATIONS - Current Medications Current Medications: Current Medications Alprazolam (Xanax) 0.5 mg PO DAILY [facility] Aspirin (Aspirin, Baby) 81 mg PO DAILY@0800 [facility] Atorvastatin Calcium (Lipitor) 10 mg PO QHS [facility] Calcium Acetate (Phoslo Gel Cap) 667 mg PO TIDCM [facility] Carvedilol (Coreg) 25 mg PO BID [facility] Diltiazem HCl (Cardizem Cd) 240 mg PO DAILY [facility] Last Admin: 01/11/18 16:07 Dose: Not Given Fluoxetine HCl (Prozac) 40 mg PO DAILY [facility] Heparin Sodium (Porcine) (Heparin Na) 5,000 unit SC Q8 [facility] Last Admin: 01/11/18 15:45 Dose: Not Given Hydralazine HCl (Apresoline Iv) 10 mg IV Q4H PRN PRN PRN Reason: SBP > 160 Hydralazine HCl (Apresoline) 25 mg PO TID [facility] Hydromorphone HCl (Dilaudid Inj) 0.5 - 1 mg IV Q3H PRN PRN PRN Reason: SEVERE PAIN (6-10/10) Ampicillin Sodium/Sulbactam (Sodium 3 gm/ Sodium Chloride) 112 mls @ 150 mls/ hr IV Q24 [facility] Last Admin: 01/11/18 14:18 Dose: 150 mls/hr Pantoprazole Sodium 40 mg/ (Sodium Chloride) 110 mls @ 330 mls/hr IV Q12 [facility] Insulin Glargine (Lantus (Bkc)) 5 units SC QHS [facility] Insulin Human Lispro (Humalog Kwikpen (Bkc)) 0 unit SC Q6 [place] PRN Reason: Protocol Isosorbide Dinitrate (Isordil) 20 mg PO TID [facility] Lisinopril (Zestril) 20 mg PO DAILY [facility] Last Admin: 01/11/18 16:07 Dose: Not Given Magnesium Hydroxide (Milk Of Magnesia) 30 ml PO DAILY PRN PRN PRN Reason: Constipation Ondansetron HCl (Zofran) 4 mg IV Q6H PRN PRN PRN Reason: NAUSEA Oxycodone HCl (Oxyir) 5 - 10 mg PO Q4H PRN PRN PRN Reason: SEVERE PAIN (6-10/10) Last Admin: 01/11/18 16:17 Dose: 10 mg Promethazine HCl (Phenergan) 12.5 mg IV Q6H PRN PRN PRN Reason: NAUSEA/VOMITING Last Admin: 01/11/18 14:18 Dose: 12.5 mg Sodium Bicarbonate (Sodium Bicarbonate) 650 mg PO TUTHSA [facility] Sodium Chloride () 5 - 30 ml IV UD PRN PRN Reason: SALINE FLUSH Last Admin: 01/11/18 14:22 Dose: 10 ml - Past Medical History Past Medical History (Chronic Problems): Chronic Problems ESRD (end stage renal disease) on dialysis (Chronic) Decubitus ulcer, stage III (Chronic) CAD (coronary artery disease) (Chronic) Anemia, chronic disease (Chronic) Pilonidal cyst with abscess (Chronic) GABRIEL (obstructive sleep apnea) (Chronic) ESRD on dialysis (Chronic) Depression (Chronic) Anxiety (Chronic) HTN (hypertension) (Chronic) Nonischemic cardiomyopathy (Chronic) With ejection fraction 45 - 50%; with angiographically normal coronary arteries 05/2013; follows up with Dr. Magdaleno S/P repair of PDA (patent ductus arteriosus) (Chronic) At young age Diabetes mellitus type 1 (Chronic) Hyperlipidemia (Chronic) Obesity (BMI 30.0-34.9) (Chronic) Gastroparesis (Chronic) - Past Surgical History Surgical History: appendectomy, hysterectomy - and BSO, - - c-sections, L breast I+D for abscess, fistula placement LUE, L ankle surgery, appendectomy, PDA repair. Excision pilonidal cyst ulcer about 4 years ago. - Social History Smoking Status: Current every day smoker Alcohol: None Drugs: None - Family History Maternal History Items: Cancer, COPD, Diabetes, Hypertension, Renal Disease, Stroke Paternal History Items: Diabetes Sibling History Items: Cancer, Diabetes Review of Systems Constitutional: Denies: Chills, Fever, Weight Change HEENT: Denies: Head Aches, Sinus Congestion, Sinus Drainage Cardiovascular: Denies: Chest Pain, Palpitations Respiratory: Denies: Cough, Shortness of breath at rest, Sputum production Gastrointestinal: Denies: Abdominal Pain, Nausea, Vomiting Genitourinary: Denies: Dysuria Musculoskeletal: Denies: Joint Pain, Joint Tenderness Skin: Denies: Rash, Wounds Neurological: Denies: Numbness, Tingling, Focal weakness Psychiatric: Denies: Anxiety, Depression, Homicidal Ideations, Suicidal Ideations Hematologic/ Lymphatic: Denies: Easy Bruising, Easy Bleeding Patient Problems: Active and Suspected Problems Tooth abscess (Acute) Intractable nausea and vomiting (Acute) - Physical Exam General: Alert, Oriented x3, Cooperative HEENT: Atraumatic, PERRLA, EOMI, Normocephalic Neck: Supple, No JVD, Negative Carotid Bruits Lungs: Clear to auscultation, Normal air movement Cardiovascular: Regular rate, No murmurs Abdomen: Bowel Sounds Present, Soft, Non Tender Extremities: No edema, Capillary Refill Less than 3 Seconds Skin: No rashes, No breakdown Musculoskeletal: No Tenderness to Palpation of Joints or Extremities Neurological: Cranial nerves II-XII grossly intact Psych/Mental Status: Normal Affect, Appropriate Vital Signs Temp Pulse Resp BP Pulse Ox 98.0 F 95 18 155/76 H 96 01/11/18 12:42 01/11/18 15:13 01/11/18 12:49 01/11/18 12:42 01/11/18 15:20 Oxygen Flow Rate (L/min) 2 Oxygen Delivery Method Nasal Cannula Weight: 90.7 kg Body Mass Index (BMI) 32.3 Assessment/Plan All Active Problems Tooth abscess (Acute) Intractable nausea and vomiting (Acute) Pneumonia (Resolved) Pulmonary edema (Acute) Hyperkalemia (Acute) Atypical chest pain (Acute) Acute hypoxic respiratory failure (Acute) Pulmonary edema (Acute) Clostridium difficile enterocolitis (Resolved) Necrotizing myositis (Resolved) Dysmenorrhea (Resolved) Hx of necrotizing fascIItis (Resolved) Iron deficiency anemia due to chronic blood loss (Resolved) Systolic congestive heart failure (Resolved) ESRD. HD today. See orders/ flowsheets Diarrhea. ? related to clindamycin.
[2018-01-11] MEDS: Sodium Bicarbonate 650 MG Tablet PO (17:24)
[2018-01-11] MEDS: Calcium Acetate 667 MG Capsule PO (17:24)
[2018-01-11 17:36] LABS: Bedside Glucose 88 mg/dL (70-110)
[2018-01-11] MEDS: Lidocaine/Prilocaine HCl 5 GM Tube 1 GM TOPICAL (18:35)
--- NOTE | 2018-01-11 23:37 | DIALYSIS ---
Hemodialysis completed. -3400ml off. Tolerated well. Hemostasis was obtained and dressing applied. Note that some redness and heat was present to access and surrounding area and pt with small open area along scar tissues that she reports she thinks she scratched open today. Dr Martinez was notified, no new orders given and cleared to proceed with TX. The redness was outlined and post tx it appeared improved. Pt reported she had her EMLA cream on for approximately 4 hours to access covered in plastic today - unsure if that was contributing factor. Report to [facility].
[2018-01-11] MEDS: Heparin Injection (Vial) 5,000 UNIT/ML VIAL 5000 UNIT SC (23:49)
[2018-01-11] MEDS: Atorvastatin Calcium 10 MG Tablet PO (23:50)
[2018-01-11] MEDS: Carvedilol 25 MG Tablet PO (23:50)
[2018-01-11] MEDS: hydrALAZINE 25 MG Tablet PO (23:51)
[2018-01-11] MEDS: Isosorbide DN 20 MG Tablet PO (23:52)
[2018-01-12 00:06] LABS: Bedside Glucose 94 mg/dL (70-110)
[2018-01-12] MEDS: HYDROmorphone 0.5 MG/0.5 ML SYRINGE IV (01:09)
[2018-01-12] MEDS: 0.9% NaCl Peripheral Flush Adult/Peds IV (01:10)
[2018-01-12 03:06] VITALS: PULSE 98
[2018-01-12] MEDS: oxyCODONE 5 MG Tablet PO ×2 (03:59→08:08)
[2018-01-12 05:25] VITALS: BP 135/65; PULSE 80; RESP 16; TEMP 37.1; O2SAT 94
[2018-01-12 05:35] VITALS: PULSE 80
[2018-01-12] MEDS: Isosorbide DN 20 MG Tablet PO (05:35)
[2018-01-12] MEDS: hydrALAZINE 25 MG Tablet PO (05:35)
[2018-01-12] MEDS: Heparin Injection (Vial) 5,000 UNIT/ML VIAL 5000 UNIT SC (05:35)
[2018-01-12] MEDS: Insulin Lispro 100 UNIT/ML INSULN.PEN SC ×2 (05:47→11:55)
[2018-01-12 06:01] LABS: Bedside Glucose 284 mg/dL (70-110)
[2018-01-12 07:08] VITALS: PULSE 77
[2018-01-12 07:20] VITALS: O2SAT 97
[2018-01-12 07:46] LABS: Absolute Lymphocyte Count 0.88 X10^3/ul (0.83-4.51); Absolute Neutrophil Count 5.2 X10^3/uL (2.0-7.7); Basophil# 0.02 X10^3/uL; Basophil% 0.3 % (0-1); Eosinophil# 0.24 X10^3/uL; Eosinophils% 3.7 % (0-5); Hematocrit 29.6 % (37-47); Hemoglobin 9.4 g/dl (12.0-15.0); Lymphocyte # 0.88 X10^3/ul (4.0); Lymphocyte % 13.5 % (19-41); Mean Corp Hgb Conc 31.8 g/gl (32-36); Mean Corpuscular Hgb 32.8 pg (27.0-32.0); Mean Corpuscular Volume 103.1 fL (81-99); Mean Platelet Vol. 8.5 fl (6.2-12.0); Monocyte# 0.23 X10^3/uL; Monocyte% 3.5 % (0-10); Neutrophil # 5.15 X10^3/uL (2.7-7.7); Neutrophil % 78.7 % (47-70); Platelet Count 193 K/mm3 (150-450); RBC Distribution Width CV 14.9 % (11.6-14.6); RBC Distribution Width SD 54.5 fl (35.1-43.9); Red Blood Count 2.87 M/mm3 (4.2-5.4); White Blood Count 6.5 K/mm3 (4.4-11.0)
[2018-01-12 07:49] LABS: POSITIVE COUNT NO; POSITIVE DIFFERENTIAL NO; POSITIVE MORPHOLOGY NO
[2018-01-12 07:55] LABS: Anion Gap 5 (5-15); BUN 26 mg/dL (7-18); BUN/Creat Ratio 5.6 RATIO (10-20); Calcium,Total 8.2 mg/dL (8.5-10.1); Chloride 97 mmol/L (98-107); Creatinine, Serum 4.62 mg/dL (0.55-1.02); EST Glomerular Filtration Rate 11 mL/min (>60); Est Glom Filt Rate - Afr Amer 13 mL/min (>60); Estimated Creatinine Clearance 14.55 ml/min; Glucose 236 mg/dL (74-106); Potassium 3.8 mmol/L (3.5-5.1); Sodium Level 135 mmol/L (136-145)
[2018-01-12] MEDS: Calcium Acetate 667 MG Capsule PO ×2 (08:08→11:55)
[2018-01-12] MEDS: Aspirin 81 MG TAB.CHEW PO (08:08)
[2018-01-12 11:04] VITALS: BP 112/53; PULSE 78; RESP 18; TEMP 37.2; O2SAT 96
[2018-01-12] MEDS: FLUoxetine 20 MG Capsule 40 MG PO (11:05)
[2018-01-12] MEDS: ALPRAZolam 0.5 MG Tablet PO (11:05)
[2018-01-12] MEDS: Carvedilol 25 MG Tablet PO (11:05)
[2018-01-12] MEDS: Lisinopril 20 MG Tablet PO (11:05)
[2018-01-12] MEDS: dilTIAZem CD 240 MG Capsule PO (11:06)
[2018-01-12 11:16] LABS: Bedside Glucose 183 mg/dL (70-110)
--- NOTE | 2018-01-12 11:25 | PCM.DC ---
- Discharge Diagnoses Current Active Problems: Current Active and Chronic Problems (1) Intractable N/V/D, Possible Viral Gastroenteritis versus possible intolerance to Clindamycin (2) Recent Tooth Abscess (3) ESRD on HD (4) Chronic systolic CHF, CM, Diastolic DysFx, CAD (5) Diabetes mellitus type II w/ Neuropathy, Gastroparesis (6) Hypertension (7) Hyperlipidemia (8) Depression and Anxiety (9) Tobacco Abuse (10) Obesity (11) GERD (12) AOCD, Fe deficiency anemia You will use the following diet at home:: Calorie/Carbohydrate Controlled (specify 1200, 1400, etc) - 1800 ADA, Cardiac Your food should be the consistency of: Regular Your liquids should be the consistency of: Regular/Thin Discharge Activity: Return to Normal Activity May resume sexual activity in: 10-14 days Weight Bearing Status: Weight bearing as tolerated Call your doctor if you observe: Fever of 101 or Higher, Inability to urinate, Inability to have a bowel movement, Shortness of breath, Dizziness, Fainting spells, Chest pain, Uncontrolled pain, - - Recurrent intractable nausea, emesis or change in ostomy output. Instructions: ED Nausea Vomiting, Dental Abscess Allergies/Adverse Reactions: Allergies latex Allergy (Verified 01/11/18 08:30) Rash levofloxacin [From Levaquin] Adverse Reaction (Verified 01/11/18 08:30) PT CAN'T REMEMBER PT CAN'T REMEMBER metoclopramide HCl [From Reglan] Adverse Reaction (Verified 01/11/18 08:30) Nausea NSAIDS (Non-Steroidal Anti-Inflamma Adverse Reaction (Verified 01/11/18 08:30) kidney function oxycodone HCl [From Percocet] Adverse Reaction (Verified 01/11/18 08:30) HALLUCINATIONS Medications to take at Discharge Diltiazem HCl [Tiazac] 240 mg PO DAILY 07/10/15 Aspirin [Aspirin, Baby] 81 mg PO DAILY@0800 01/26/16 Calcium Acetate [Phoslo Gel Cap] 667 mg PO TIDCM 01/26/16 Ergocalciferol [Vitamin D] 50,000 unit PO FR 01/26/16 Insulin Aspart [Novolog Flexpen] 8 units SC TIDCM 01/26/16 Insulin Glargine,Hum.rec.anlog [Lantus] 5 unit SQ QHS 01/09/17 proMETHazine tablet [Phenergan tablet] 25 mg PO Q6H PRN PRN #10 tablet 03/06/17 Lisinopril 20 mg PO DAILY 03/29/17 Sodium Bicarbonate 650 mg PO TUTHSA 03/29/17 Carvedilol [Coreg (Beta Chang)] 25 mg PO BID 06/17/17 Fluoxetine HCl 40 mg PO DAILY 09/02/17 hydrALAZINE [Apresoline] 25 mg PO TID 11/05/17 Atorvastatin Calcium 10 mg PO QHS #30 tab 11/16/17 Isosorbide DN [Isordil] 20 mg PO TID #90 tab 11/16/17 ALPRAZolam [Xanax] 0.5 mg PO DAILY 11/21/17 Famotidine [Pepcid] 20 mg PO DAILY 11/21/17 Amoxicillin/Potassium Clav [Augmentin 500-125 Tablet] 1 ea PO UD 10 Days tab 01/12/18 The following prescriptions were given: Amoxicillin/Potassium Clav [Augmentin 500-125 Tablet] 1 ea PO UD 10 Days tab Primary Care Physician: Christopher Foy MD [Primary Care Provider] - Please follow up with your Primary Care Physician in: Follow-up within 3-5 days to review admission. Please Follow Up With: Dentist,Your When: Please contact your dentist to notify them of antibiotic change. Please Follow Up With: Jhon Zhang MD When: Please contact his office to re-schedule your appt. Proposed Discharge Date: 01/12/18
--- NOTE | 2018-01-12 11:37 | PCM.DC.SUM ---
Discharge Date and Diagnosis Date of Admission: 01/11/18 Date of Discharge: 01/12/18 - Primary Discharge Diagnosis Active and Suspected Problems 1. Nausea, vomiting, diarrhea-suspected viral gastroenteritis-stool for C. difficile and enteric pathogen negative. 2. Recent tooth abscess - Secondary Discharge Diagnosis Chronic Problems ESRD (end stage renal disease) on dialysis (Chronic) Decubitus ulcer, stage III (Chronic) CAD (coronary artery disease) (Chronic) Anemia, chronic disease (Chronic) Pilonidal cyst with abscess (Chronic) AGBRIEL (obstructive sleep apnea) (Chronic) ESRD on dialysis (Chronic) Depression (Chronic) Anxiety (Chronic) HTN (hypertension) (Chronic) Nonischemic cardiomyopathy (Chronic) With ejection fraction 45 - 50%; with angiographically normal coronary arteries 05/2013; follows up with Dr. Magdaleno S/P repair of PDA (patent ductus arteriosus) (Chronic) At young age Diabetes mellitus type 1 (Chronic) Hyperlipidemia (Chronic) Obesity (BMI 30.0-34.9) (Chronic) Gastroparesis (Chronic) Hospital Course and Treatment Imaging Results: Diagnostic Data Abdomen/Pelvis CT 01/11/18 09:20 IMPRESSION: Small bilateral pleural effusions with progressive increased interstitial markings in both lower lobes. An element of CHF should be ruled out. Stable appearance of the abdomen. Electronically Signed: Josh Hill MD at 10:33 EDT Tel [phone], Service support , Consultations 01/11/18 12:31 Consult: Onc/Wound/food court team member Routine Comment: 01/11/18 16:39 Consult: Onc/Wound/food court team member Routine Comment: Reason for Consult:: COLOSTOMY Dr. Martinez- nephrology Operations: None Procedures: None Summary of Care Provided: The patient is a 42 year old F admitted 01/11/2018 due to abdominal pain, nausea, vomiting, loose stools in colostomy. She has a past medical history of type 2 diabetes mellitus with neuropathy, gastroparesis, hypertension, hyperlipidemia, tobacco dependence, obesity, systolic CHF, CAD status post 2013 catheterization with mild LAD disease, anxiety, depression, anemia of chronic disease, iron deficiency anemia. Suspect viral gastroenteritis and/or diarrhea related to clindamycin. Patient received gentle IV fluids. Stool cultures and C. difficile negative. Patient was on Unasyn for a recent tooth abscess. This was switched to renal dose Augmentin at discharge. Nephrology consulted. Patient received hemodialysis prior to discharge. Patient's nausea, vomiting resolved. Able to tolerate regular diet. Patient states she had an appointment with Dr. Dill this afternoon to talk about reversing colostomy. She canceled this appointment due to being in the hospital. Recommend rescheduling this appointment. Other chronic medical conditions as noted above are stable at this time. Patient stable for discharge home with further follow-up with primary care physician, Dr. Dill and nephrology. Patient seen exam prior to discharge. Alert, oriented, no acute distress. Denies further nausea, vomiting, abdominal pain. No further diarrhea. Lungs clear, diminished. Heart rate regular rate and rhythm, no murmur. Abdomen soft, nontender, obese. No edema. Neuro grossly intact. Normal affect. Vital signs stable. Patient seen exam prior to discharge. Physical assessment as noted above. Patient is stable for discharge home with the follow-up her conditions as noted above. Discharge Diet: 1800 Calorie Control Diet, Carb Control Diet Discharge Activity: Return to Normal Activity May resume sexual activity in: 10-14 days Weight Bearing Status: Weight bearing as tolerated Call your doctor if you observe: Fever of 101 or Higher, Inability to urinate, Inability to have a bowel movement, Shortness of breath, Dizziness, Fainting spells, Chest pain, Uncontrolled pain, - - Recurrent intractable nausea, emesis or change in ostomy output. Home Medications: Medications to take at Discharge Diltiazem HCl [Tiazac] 240 mg PO DAILY 07/10/15 Aspirin [Aspirin, Baby] 81 mg PO DAILY@0800 01/26/16 Calcium Acetate [Phoslo Gel Cap] 667 mg PO TIDCM 01/26/16 Ergocalciferol [Vitamin D] 50,000 unit PO FR 01/26/16 Insulin Aspart [Novolog Flexpen] 8 units SC TIDCM 01/26/16 Insulin Glargine,Hum.rec.anlog [Lantus] 5 unit SQ QHS 01/09/17 proMETHazine tablet [Phenergan tablet] 25 mg PO Q6H PRN PRN #10 tablet 03/06/17 Lisinopril 20 mg PO DAILY 03/29/17 Sodium Bicarbonate 650 mg PO TUTHSA 03/29/17 Carvedilol [Coreg (Beta Chang)] 25 mg PO BID 06/17/17 Fluoxetine HCl 40 mg PO DAILY 09/02/17 hydrALAZINE [Apresoline] 25 mg PO TID 11/05/17 Atorvastatin Calcium 10 mg PO QHS #30 tab 11/16/17 Isosorbide DN [Isordil] 20 mg PO TID #90 tab 11/16/17 ALPRAZolam [Xanax] 0.5 mg PO DAILY 11/21/17 Famotidine [Pepcid] 20 mg PO DAILY 11/21/17 Amoxicillin/Potassium Clav [Augmentin 500-125 Tablet] 1 ea PO UD 10 Days tab 01/12/18 Following Prescrptions Were Given to Patient: Amoxicillin/Potassium Clav [Augmentin 500-125 Tablet] 1 ea PO UD 10 Days tab Primary Care Physician: Christopher Foy MD [Primary Care Provider] - Please follow up with your Primary Care Physician in: Follow-up within 3-5 days to review admission. Please Follow Up With: Dentist,Your When: Please contact your dentist to notify them of antibiotic change. Please Follow Up With: Jhon Zhang MD When: Please contact his office to re-schedule your appt. Patient Instructions: Dental Abscess, ED Nausea Vomiting Disposition: Home Minutes spent on discharge:: 35 Patient Condition:: Stable Medical Necessity - Tobacco Use Smoking Status: Current every day smoker Tobacco Use: Cigarettes Meaningful Use Info Meaningful Use Diagnoses (Choose all that apply): None applicable
--- NOTE | 2018-01-12 11:48 | DS.PCM_ITS ---
Discharge Date and Diagnosis Date of Admission: 01/11/18 Date of Discharge: 01/12/18 - Primary Discharge Diagnosis Active and Suspected Problems 1. Nausea, vomiting, diarrhea-suspected viral gastroenteritis-stool for C. difficile and enteric pathogen negative. 2. Recent tooth abscess - Secondary Discharge Diagnosis Chronic Problems ESRD (end stage renal disease) on dialysis (Chronic) Decubitus ulcer, stage III (Chronic) CAD (coronary artery disease) (Chronic) Anemia, chronic disease (Chronic) Pilonidal cyst with abscess (Chronic) GABRIEL (obstructive sleep apnea) (Chronic) ESRD on dialysis (Chronic) Depression (Chronic) Anxiety (Chronic) HTN (hypertension) (Chronic) Nonischemic cardiomyopathy (Chronic) With ejection fraction 45 - 50%; with angiographically normal coronary arteries 05/2013; follows up with Dr. Magdaleno S/P repair of PDA (patent ductus arteriosus) (Chronic) At young age Diabetes mellitus type 1 (Chronic) Hyperlipidemia (Chronic) Obesity (BMI 30.0-34.9) (Chronic) Gastroparesis (Chronic) Hospital Course and Treatment Imaging Results: Diagnostic Data Abdomen/Pelvis CT 01/11/18 09:20 IMPRESSION: Small bilateral pleural effusions with progressive increased interstitial markings in both lower lobes. An element of CHF should be ruled out. Stable appearance of the abdomen. Electronically Signed: Josh Hill MD at 10:33 EDT Tel [phone], Service support , Consultations 01/11/18 12:31 Consult: Onc/Wound/apple picker Routine Comment: 01/11/18 16:39 Consult: Onc/Wound/apple picker Routine Comment: Reason for Consult:: COLOSTOMY Dr. Martinez- nephrology Operations: None Procedures: None Summary of Care Provided: The patient is a 42 year old F admitted 01/11/2018 due to abdominal pain, nausea , vomiting, loose stools in colostomy. She has a past medical history of type 2 diabetes mellitus with neuropathy, gastroparesis, hypertension, hyperlipidemia , tobacco dependence, obesity, systolic CHF, CAD status post 2013 catheterization with mild LAD disease, anxiety, depression, anemia of chronic disease, iron deficiency anemia. Suspect viral gastroenteritis and/or diarrhea related to clindamycin. Patient received gentle IV fluids. Stool cultures and C. difficile negative. Patient was on Unasyn for a recent tooth abscess. This was switched to renal dose Augmentin at discharge. Nephrology consulted. Patient received hemodialysis prior to discharge. Patient's nausea, vomiting resolved. Able to tolerate regular diet. Patient states she had an appointment with Dr. Dill this afternoon to talk about reversing colostomy. She canceled this appointment due to being in the hospital. Recommend rescheduling this appointment. Other chronic medical conditions as noted above are stable at this time. Patient stable for discharge home with further follow- up with primary care physician, Dr. Dill and nephrology. Patient seen exam prior to discharge. Alert, oriented, no acute distress. Denies further nausea, vomiting, abdominal pain. No further diarrhea. Lungs clear, diminished. Heart rate regular rate and rhythm, no murmur. Abdomen soft , nontender, obese. No edema. Neuro grossly intact. Normal affect. Vital signs stable. Patient seen exam prior to discharge. Physical assessment as noted above. Patient is stable for discharge home with the follow-up her conditions as noted above. Discharge Diet: 1800 Calorie Control Diet, Carb Control Diet Discharge Activity: Return to Normal Activity May resume sexual activity in: 10-14 days Weight Bearing Status: Weight bearing as tolerated Call your doctor if you observe: Fever of 101 or Higher, Inability to urinate, Inability to have a bowel movement, Shortness of breath, Dizziness, Fainting spells, Chest pain, Uncontrolled pain, - - Recurrent intractable nausea, emesis or change in ostomy output. Home Medications: Medications to take at Discharge Diltiazem HCl [Tiazac] 240 mg PO DAILY 07/10/15 Aspirin [Aspirin, Baby] 81 mg PO DAILY@0800 01/26/16 Calcium Acetate [Phoslo Gel Cap] 667 mg PO TIDCM 01/26/16 Ergocalciferol [Vitamin D] 50,000 unit PO FR 01/26/16 Insulin Aspart [Novolog Flexpen] 8 units SC TIDCM 01/26/16 Insulin Glargine,Hum.rec.anlog [Lantus] 5 unit SQ QHS 01/09/17 proMETHazine tablet [Phenergan tablet] 25 mg PO Q6H PRN PRN #10 tablet 03/06/17 Lisinopril 20 mg PO DAILY 03/29/17 Sodium Bicarbonate 650 mg PO TUTHSA 03/29/17 Carvedilol [Coreg (Beta Chang)] 25 mg PO BID 06/17/17 Fluoxetine HCl 40 mg PO DAILY 09/02/17 hydrALAZINE [Apresoline] 25 mg PO TID 11/05/17 Atorvastatin Calcium 10 mg PO QHS #30 tab 11/16/17 Isosorbide DN [Isordil] 20 mg PO TID #90 tab 11/16/17 ALPRAZolam [Xanax] 0.5 mg PO DAILY 11/21/17 Famotidine [Pepcid] 20 mg PO DAILY 11/21/17 Amoxicillin/Potassium Clav [Augmentin 500-125 Tablet] 1 ea PO UD 10 Days tab Following Prescrptions Were Given to Patient: Amoxicillin/Potassium Clav [Augmentin 500-125 Tablet] 1 ea PO UD 10 Days tab Primary Care Physician: Christopher Foy MD [Primary Care Provider] - Please follow up with your Primary Care Physician in: Follow-up within 3-5 days to review admission. Please Follow Up With: Dentist,Your When: Please contact your dentist to notify them of antibiotic change. Please Follow Up With: Jhon Zhang MD When: Please contact his office to re-schedule your appt. Patient Instructions: Dental Abscess, ED Nausea Vomiting Disposition: Home Minutes spent on discharge:: 35 Patient Condition:: Stable Medical Necessity - Tobacco Use Smoking Status: Current every day smoker Tobacco Use: Cigarettes Meaningful Use Info Meaningful Use Diagnoses (Choose all that apply): None applicable
== END 2018-01-12 11:29 | disposition home or self-care (01) ==
LOC: ED 08:59 → PCU 12:05
PROVIDERS: Admitting Provider Family Medicine; Emergency Provider Emergency Medicine; Family Provider Family Medicine; PCP Family Medicine; Visit Provider Family Medicine
DX: R11.2 Nausea with vomiting, unspecified (principal); R19.7 Diarrhea, unspecified; E11.22 Type 2 diabetes mellitus with diabetic chronic kidney disease; I13.2 Hypertensive heart and chronic kidney disease with heart failure and with stage 5 chronic kidney disease, or end stage renal disease; I50.22 Chronic systolic (congestive) heart failure; N18.6 End stage renal disease; E11.40 Type 2 diabetes mellitus with diabetic neuropathy, unspecified; E78.5 Hyperlipidemia, unspecified; K21.9 Gastro-esophageal reflux disease without esophagitis; D50.9 Iron deficiency anemia, unspecified; D63.8 Anemia in other chronic diseases classified elsewhere; F32.9 Major depressive disorder, single episode, unspecified; F41.9 Anxiety disorder, unspecified; K04.7 Periapical abscess without sinus; I25.10 Atherosclerotic heart disease of native coronary artery without angina pectoris; G47.33 Obstructive sleep apnea (adult) (pediatric); E66.9 Obesity, unspecified; Z99.2 Dependence on renal dialysis; Z68.32 Body mass index [BMI] 32.0-32.9, adult; Z71.3 Dietary counseling and surveillance; Z79.4 Long term (current) use of insulin; Z79.82 Long term (current) use of aspirin; Z79.899 Other long term (current) drug therapy; I42.9 Cardiomyopathy, unspecified; J96.01 Acute respiratory failure with hypoxia; L89.93 Pressure ulcer of unspecified site, stage 3; F17.210 Nicotine dependence, cigarettes, uncomplicated
CPT/HCPCS: 36415; 74176; 80048; 80053; 81001; 82962; 83630; 83690; 83735; 85025; 87493; 87506; 90937; 93005; 96361; 96365; 96367; 96372; 96375; 96376; 99218; 99285; J7030; J7040; A4216; G0257; G0378; J0295; J2405

== ENCOUNTER 2018-01-17 19:52 | Emergency (ER) | payer MEDICARE, MEDICAID, SELFPAY ==
[2018-01-17 19:53] VITALS: BP 194/100; PULSE 107; RESP 20; TEMP 37.6; O2SAT 98; BMI 31.8
[2018-01-17] MEDS: Morphine 4 MG/ML Syringe IV ×2 (20:44→22:28)
[2018-01-17] MEDS: Ondansetron 4 MG/2 ML Vial IV (20:44)
[2018-01-17 20:50] LABS: Absolute Lymphocyte Count 1.27 X10^3/ul (0.83-4.51); Absolute Neutrophil Count 5.2 X10^3/uL (2.0-7.7); Basophil# 0.02 X10^3/uL; Basophil% 0.3 % (0-1); Eosinophil# 0.26 X10^3/uL; Eosinophils% 3.7 % (0-5); Hematocrit 31.4 % (37-47); Hemoglobin 9.9 g/dl (12.0-15.0); Lymphocyte # 1.27 X10^3/ul (4.0); Lymphocyte % 18.2 % (19-41); Mean Corp Hgb Conc 31.5 g/gl (32-36); Mean Corpuscular Hgb 32.4 pg (27.0-32.0); Mean Corpuscular Volume 102.6 fL (81-99); Mean Platelet Vol. 8.5 fl (6.2-12.0); Monocyte# 0.23 X10^3/uL; Monocyte% 3.3 % (0-10); Neutrophil # 5.19 X10^3/uL (2.7-7.7); Neutrophil % 74.2 % (47-70); Platelet Count 166 K/mm3 (150-450); RBC Distribution Width CV 16.2 % (11.6-14.6); RBC Distribution Width SD 59.5 fl (35.1-43.9); Red Blood Count 3.06 M/mm3 (4.2-5.4)
[2018-01-17 20:51] LABS: POSITIVE COUNT NO; POSITIVE DIFFERENTIAL NO; POSITIVE MORPHOLOGY NO
[2018-01-17 21:02] LABS: Anion Gap 11 (5-15); BUN 37 mg/dL (7-18); BUN/Creat Ratio 6.6 RATIO (10-20); Calcium,Total 8.4 mg/dL (8.5-10.1); Chloride 101 mmol/L (98-107); Creatinine, Serum 5.61 mg/dL (0.55-1.02); EST Glomerular Filtration Rate 9 mL/min (>60); Est Glom Filt Rate - Afr Amer 11 mL/min (>60); Estimated Creatinine Clearance 11.98 ml/min; Glucose 235 mg/dL (74-106); Potassium 4.3 mmol/L (3.5-5.1); Sodium Level 138 mmol/L (136-145)
--- NOTE | 2018-01-17 22:02 | ED.VISSUMM ---
- ER Visit Summary Date of Service: 01/17/18 Chief Complaint: Blood in ostomy bag History of Present Illness: The patient is a 42 F presenting with abdominal pain and blood in ostomy bag. Patient states that she was in her house trying to get around a tool cabinet. She states she tried to scoot through a small area and her colostomy scraped up against the edge of a toolbox. This was not a high force injury. She noted blood in the ostomy bag following this. No other complaints. She has a history of a diverting colostomy August [address] Zhang. She is scheduled to see him on Monday to discuss reversal. Physical Examination: Vitals are stable. Patient is afebrile. Alert no acute distress. HEENT exam is unremarkable. Neck is supple. Lungs are clear and equal bilaterally. Heart is regular rate and rhythm. Abdomen is soft, ostomy pink. blood in ostomy bag. Ecchymosis left lower quadrant Extremities are unremarkable. Skin is warm and dry. No focal neurologic deficit. Remainder of exam is unremarkable. Emergency Department Course and Treatment: CBC normal except for hemoglobin 9.9 which is at her baseline. Glucose 235, BUN 37, creatinine 5.6, near her baseline. Ostomy is cleaned. No lacerations. Inferior to the ostomy there is a small area of abrasion with clot. No active bleeding. Discussed with Dr. Luo covering for Dr. Zhang. She is advised to keep her appointment with Dr. Zhang on Monday. Patient is advised to return to ED for any worsening complaints. Disposition: Discharge home Impression: Abdominal pain, abdominal wall abrasion This note was generated with [employer] dictation software. It may contain incorrect words, spelling, and punctuation that were not noted in review of the chart prior to signing ED Disposition - Plan for ED Patient: Disposition: Home or Assisted Living Chief Complaint: Abd Pain Referrals: Christopher Foy MD [Primary Care Provider] -
[2018-01-17] MEDS: proMETHazine 25 MG/ML Syringe 6.25 MG IV (22:28)
[2018-01-17 22:29] VITALS: PULSE 101; RESP 16; O2SAT 97; O2SAT 98
== END 2018-01-17 20:47 | disposition home or self-care (01) ==
LOC: ED 20:29
PROVIDERS: Emergency Provider Emergency Medicine; Family Provider Family Medicine; PCP Family Medicine
DX: S30.811A Abrasion of abdominal wall, initial encounter (principal); R10.9 Unspecified abdominal pain; W22.8XXA Striking against or struck by other objects, initial encounter; Y93.9 Activity, unspecified; Y92.9 Unspecified place or not applicable; Z93.3 Colostomy status; J44.9 Chronic obstructive pulmonary disease, unspecified; E11.22 Type 2 diabetes mellitus with diabetic chronic kidney disease; I12.0 Hypertensive chronic kidney disease with stage 5 chronic kidney disease or end stage renal disease; N18.6 End stage renal disease; Z79.82 Long term (current) use of aspirin; Z79.4 Long term (current) use of insulin; Z79.899 Other long term (current) drug therapy; Z72.0 Tobacco use
CPT/HCPCS: 80048; 85025; 96374; 96375; 96376; 99282; A4216; J2405

== ENCOUNTER 2018-01-22 21:57 | Emergency (ER) | payer MEDICARE, MEDICAID, SELFPAY ==
[2018-01-22 21:58] VITALS: BP 193/90; PULSE 88; RESP 16; TEMP 35.9; O2SAT 98; BMI 32.6
--- NOTE | 2018-01-22 22:47 | ED.VISSUMM ---
- ER Visit Summary Date of Service: 01/22/18 Chief Complaint: Inflammation at colostomy site History of Present Illness: The patient is a 42 F status post colostomy in August of this year. She also has a history of insulin diabetes, anemia, end-stage renal disease dialysis, CAD and hypertension. Patient states she has had blistering today at her colostomy site when she claimed that she noticed a small amount of bleeding. She called her surgeon's office and they directed to the ER. She states she has some nausea but no vomiting. And has increased liquid stool through her colostomy. She denies any fever. Physical Examination: Appearing middle-aged female no acute distress. Vital signs are stable and she is afebrile. H EENT exam unremarkable. Neck nontender lungs clear to auscultation heart regular rhythm no murmur. Abdomen is soft and nondistended normal bowel sounds no peritoneal signs. She is a midline lower colostomy there is mild inflammation of the colonic mucosa. Currently there is no blood or active bleeding. She points area to have punctate hemorrhage areas that are extremely small and with no active bleeding or blood in the colostomy bag. She has bowel sounds. There is no hernias or masses appreciated. Moving all 4 extremities. Dialysis fistula left upper extremity. Neurologically she is awake and alert without focal motor deficits. Test Results: None Emergency Department Course and Treatment: Patient requested something for pain and nausea. She will be given 1 dose of subcu morphine and Phenergan and discharged home. She needs no workup at this time. This is just some minor bowel mucosal inflammation from diarrhea. There is no signs of bowel obstruction or any acute intra-abdominal pathology. Treatment Plan: Follow-up with her general surgeon Dr. Abran Zhang. Eliud for nausea Disposition: Discharge Impression: Acute colostomy inflammation secondary to diarrhea This note was generated with [employer] dictation software. It may contain incorrect words, spelling, and punctuation that were not noted in review of the chart prior to signing ED Disposition - Plan for ED Patient: Chief Complaint: Abd Pain Referrals: Christopher Foy MD [Primary Care Provider] -
--- NOTE | 2018-01-22 22:50 | ED.DEP ---
ED Disposition - Plan for ED Patient: Disposition: Home or Assisted Living Chief Complaint: Abd Pain Instructions: ED Abdominal Pain Unkn Cause Prescriptions: Ondansetron [Zofran Odt] 4 mg PO Q8H PRN PRN #10 tab PRN Reason: Nausea Referrals: Christopher Foy MD [Primary Care Provider] - As Needed Jhon Zhang MD [STAFF PHYSICIAN] - As Needed Additional Instructions: Zofran as needed for nausea. Plenty of fluids and rest. Call follow-up your primary care physician or your surgeon as needed.
[2018-01-22] MEDS: proMETHazine 25 MG/ML Syringe IM (23:01)
[2018-01-22] MEDS: morphine 8 MG/ML Syringe 6 MG SC (23:01)
== END 2018-01-22 23:22 | disposition home or self-care (01) ==
PROVIDERS: Emergency Provider Emergency Medicine; Family Provider Family Medicine; PCP Family Medicine
DX: K94.09 Other complications of colostomy (principal); R19.7 Diarrhea, unspecified; I12.0 Hypertensive chronic kidney disease with stage 5 chronic kidney disease or end stage renal disease; E11.22 Type 2 diabetes mellitus with diabetic chronic kidney disease; N18.6 End stage renal disease; Z99.2 Dependence on renal dialysis; D64.9 Anemia, unspecified; I25.10 Atherosclerotic heart disease of native coronary artery without angina pectoris; I25.2 Old myocardial infarction; J44.9 Chronic obstructive pulmonary disease, unspecified; Z72.0 Tobacco use; Z79.4 Long term (current) use of insulin; Z79.82 Long term (current) use of aspirin; Z79.899 Other long term (current) drug therapy
CPT/HCPCS: 96372; 99282

== ENCOUNTER 2018-01-27 20:14 | Emergency (ER) | payer MEDICARE, MEDICAID, SELFPAY ==
[2018-01-27 20:14] VITALS: BP 167/80; PULSE 91; RESP 16; TEMP 37.1; O2SAT 99; BMI 31.7
[2018-01-27] MEDS: Ondansetron 4 MG/2 ML Vial IV (20:51)
[2018-01-27] MEDS: 0.9% Normal Saline 1,000 ML 1000 ML IV (20:51)
[2018-01-27] MEDS: Morphine 4 MG/ML Syringe IV ×2 (20:51→22:41)
[2018-01-27 21:03] LABS: Absolute Lymphocyte Count 1.23 X10^3/ul (0.83-4.51); Absolute Neutrophil Count 5.5 X10^3/uL (2.0-7.7); Basophil# 0.02 X10^3/uL; Basophil% 0.3 % (0-1); Eosinophil# 0.35 X10^3/uL; Eosinophils% 4.6 % (0-5); Hematocrit 34.4 % (37-47); Hemoglobin 11.1 g/dl (12.0-15.0); Lymphocyte # 1.23 X10^3/ul (4.0); Lymphocyte % 16.3 % (19-41); Mean Corp Hgb Conc 32.3 g/gl (32-36); Mean Corpuscular Hgb 33.5 pg (27.0-32.0); Mean Corpuscular Volume 103.9 fL (81-99); Mean Platelet Vol. 8.4 fl (6.2-12.0); Monocyte# 0.39 X10^3/uL; Monocyte% 5.2 % (0-10); Neutrophil # 5.51 X10^3/uL (2.7-7.7); Neutrophil % 73.2 % (47-70); Platelet Count 172 K/mm3 (150-450); RBC Distribution Width CV 16.4 % (11.6-14.6); RBC Distribution Width SD 57.9 fl (35.1-43.9); Red Blood Count 3.31 M/mm3 (4.2-5.4); White Blood Count 7.5 K/mm3 (4.4-11.0)
[2018-01-27 21:04] LABS: POSITIVE COUNT NO; POSITIVE DIFFERENTIAL NO; POSITIVE MORPHOLOGY NO
[2018-01-27 21:32] LABS: Anion Gap 10 (5-15); BUN 23 mg/dL (7-18); BUN/Creat Ratio 5.2 RATIO (10-20); Calcium,Total 7.8 mg/dL (8.5-10.1); Chloride 95 mmol/L (98-107); EST Glomerular Filtration Rate 12 mL/min (>60); Est Glom Filt Rate - Afr Amer 14 mL/min (>60); Estimated Creatinine Clearance 15.27 ml/min; Glucose 352 mg/dL (74-106); Potassium 3.4 mmol/L (3.5-5.1); Sodium Level 139 mmol/L (136-145)
--- NOTE | 2018-01-27 22:34 | ED.DCSUM_ITS ---
- ER Visit Summary Date of Service: 01/27/18 Chief Complaint: Vomiting and diarrhea History of Present Illness: The patient is a [address] Foy. She reports that she has diarrhea that began 2 days ago. She reports that she had a diverting colostomy after repair of what sounds to be a decubitus ulcer. She reports is been draining much more liquid stool since yesterday. No blood in her stool. She reports that she has sharp abdominal pain stenting over 7-10 currently. Is worsened by nothing relieved by nothing. She reports been nausea and vomited 6 times. No blood or emesis. She reports that this has gone through her house and that she is the last one to get sick. Patient reports that she was on clindamycin approximately 2 weeks ago as well as amoxicillin. She was camping yesterday, but did not drink the water. She does not drink well water. No possible bad food exposure. Physical Examination: Vitals: Stable. Afebrile. General: Well-nourished and well-developed. Head: Normocephalic atraumatic. Neck: Supple, no lymphadenopathy. No JVD. Nontender. Cardiovascular: Regular rate and rhythm. No murmurs. Respiratory: No respiratory distress. Clear to auscultation bilaterally. Abdominal: Soft, mild diffuse tenderness palpation, nondistended, normal bowel sounds. No guarding, rebound, or peritoneal signs. Her colostomy is erythematous. There is no bleeding. Back: Nontender. Extremities: Nontender, no edema. Skin: Normal color, no rash. Neurologic: Alert and oriented ?3. Cranial nerves II through XII are intact. Normal strength and sensation. Psych: Normal affect. Test Results: CBC is marked for an H&H 11.1 34.4, 7 neutrophils 73, lymphs at 16. Chem-7 marked potassium 3.4, chloride 95, CO2 34, glucose of 352, BUN 23, creatinine 4.4, calcium 7.8. C. difficile was negative. Emergency Department Course and Treatment: Patient does have history of end- stage renal disease and had a full run of dialysis today. I suspect that she is volume depleted due to involve the diarrhea. She was given 750 cc of normal saline. Patient reports that she has not taken her evening dose of insulin or her Lantus. Treatment Plan: Patient be discharged instructions to push fluids. Should be placed on Zofran. Instructed take her insulin when she gets home. Follow-up Dr. Foy in 1-2 days not improving. Return to the emergency department for any worsening symptoms. Disposition: To home in improved and stable condition. Impression: 1. Vomiting/diarrhea. 2. End-stage renal disease. 3. Hypoglycemia with a history of insulin-dependent diabetes mellitus. This note was generated with [employer] dictation software. It may contain incorrect words, spelling, and punctuation that were not noted in review of the chart prior to signing ED Disposition - Plan for ED Patient: Chief Complaint: Nausea/Vomiting/Diarrhea Instructions: ED Food Poison Or Gastroenteritis Prescriptions: Ondansetron [Zofran Odt] 4 mg PO Q8H PRN PRN #10 tablet PRN Reason: Nausea Dicyclomine HCl [Bentyl] 20 mg PO TIDAC #20 capsule Referrals: Christopher Foy MD [Primary Care Provider] - 1-2 Days if not improving
[2018-01-27 22:37] VITALS: BP 190/82; PULSE 91; O2SAT 99
[2018-01-27] MEDS: Ondansetron ODT 4 MG Tablet PO (23:02)
[2018-01-27 23:03] VITALS: BP 173/74; PULSE 87; O2SAT 98
== END 2018-01-27 23:08 | disposition home or self-care (01) ==
LOC: ED 20:59
PROVIDERS: Emergency Provider Emergency Medicine; Family Provider Family Medicine; PCP Family Medicine
DX: R11.10 Vomiting, unspecified (principal); R19.7 Diarrhea, unspecified; E11.649 Type 2 diabetes mellitus with hypoglycemia without coma; Z79.4 Long term (current) use of insulin; I25.10 Atherosclerotic heart disease of native coronary artery without angina pectoris; I12.0 Hypertensive chronic kidney disease with stage 5 chronic kidney disease or end stage renal disease; E11.22 Type 2 diabetes mellitus with diabetic chronic kidney disease; N18.6 End stage renal disease; Z99.2 Dependence on renal dialysis; E78.00 Pure hypercholesterolemia, unspecified; J44.9 Chronic obstructive pulmonary disease, unspecified; Z79.82 Long term (current) use of aspirin; Z79.899 Other long term (current) drug therapy; Z72.0 Tobacco use
CPT/HCPCS: 80048; 85025; 87493; 96361; 96374; 96375; 96376; 99283; J7030; J2405

== ENCOUNTER 2018-01-29 08:59 | Outpatient (RCR) | payer MEDICARE, MEDICAID, SELFPAY ==
[2018-01-29 10:54] VITALS: BP 151/81; PULSE 95; RESP 16; TEMP 36.3
--- NOTE | 2018-01-29 23:58 | PN.PCM_ITS ---
Type of Wound Date of Service: 01/29/18 Chief Complaint: Nonhealing ulcer sacral area. History of Wound: Surgery 08/15/17 - Surgical preparation sacral and left gluteal area with excision recurrent extensive complicated pilonidal cyst ulcers with left gluteal extension and necrotizing anal sphincter muscle involvement (152 cm2). Wound care - Silver. Operative culture - Streptococcus group G, Enterococcus avium, E. coli, Anaerobic cocci, and Bacteroides species. She was treated with Vancomycin, Ceftazidine, and Flagyl. She was sent to an LTAC. Fungal cultures showed Marifer albicans and Marifer glabrata and was treated. Prealbumin was 23.1. Encourage nutritional supplementation with protein to help the healing process. Today she denies any fever. Her appetite is good. Progress of Wound: Improved. - Physical Exam Vital Signs Temp Pulse Resp BP 97.3 F L 95 16 151/81 H 01/29/18 10:54 01/29/18 10:54 01/29/18 10:54 01/29/18 10:54 Wound Measurements and Assessment WC - Nurse 1 - General Ulcer Measurement Start: 01/29/18 10:54 Freq: Status: Active Protocol: Activity Type Activity Date Activity User E-Sign Co-Sign Detail Recorded Client Recorded Date Recorded By Document 01/29/18 10:54 [id number] 01/29/18 11:00 01/29/18 10:54 Wound Center Nurse 1 [Ulcer Assessment] #2- SACRUM -Current Size (cm) - Length 3.0 -Current Size (cm) - Width 0.2 -Current Size (cm) - Depth 0.2 -Total Square Cm 0.60 -Photo Taken No -Epithelialization None Present -Tunneling No -Undermining/Tunneling No -Undermining/Tunneling Starts (O' 11 clock) -Undermining/Tunneling Ends (O'clock) 12 -Circular Undermining No -Exudate Amt Small (1-33%) -Exudate Type Serosanguineous -Wound Margin Distinct, Outline Attached -Granulation Amt Medium (34-66%) -Granulation Quality [place] Red -Necrosis Amt None Present (0 %) -Necrotic Tissue Type Adherent Slough -Structure Exposed None/Limited to Skin Breakdown -Texture (Jenny-wound Skin Appearance) Assessed Scarring -Moisture (Jenny-wound Skin Appearance No Abnormality ) Assessed -Color (Jenny-wound Skin Appearance) No Abnormality Assessed -Temperature (Jenny-wound Skin No Abnormality Appearance) (Pt Warm) -Tenderness on Palpation (Jenny-wound No Skin Appearance) -Ulcer Cleansing Wound Cleanser -Foul Odor after Cleansing No -Anesthetic Used 5% Lidocaine Gel [Edema Assessment] -Lower Limb Edema Present NA GURINDER - Nurse 2 - General Ulcer CM Notes Start: 01/29/18 10:54 Freq: Status: Active Protocol: Activity Type Activity Date Activity User E-Sign Co-Sign Detail Recorded Client Recorded Date Recorded By Document 01/29/18 11:45 [email or web address] [id number] 01/29/18 11:46 ARYAN 01/29/18 11:45 Wound Center Nurse 2 [Procedure/Treatment] #2- SACRUM -Time 11:46 -Correct Patient Yes -Correct Side, Site, Position Yes -Correct Procedure Yes -Procedure Performed Yes -Type of Procedure Debridement -Clinical Debridement Subcutaneous -Post Debridement Size (cm) - Length 3 -Post Debridement Size (cm) - Width 0.3 -Post Debridement Size (cm) - Depth 0.2 -Total Square Cm 0.9 -Wound/Ulcer Outcome Not Healed -Ulcer Cleansing Rinsed/ Irrigated with Saline -Foul Odor after Cleansing No -Bioengineered Tissue No -Bleeding Controlled with Pressure -Treatment Response Procedure Tolerated Well [See Physician Procedure note for Specifics] Pain Scale: 0-10 Numeric [Pain] -Is Patient Pain Free? Yes Debridement Note Post-Debridement Measurements/Treatment - Nurse 2 - General Ulcer CM Notes Start: 01/29/18 10:54 Freq: Status: Active Protocol: Activity Type Activity Date Activity User E-Sign Co-Sign Detail Recorded Client Recorded Date Recorded By Document 01/29/18 11:45 JF [email or web address] 01/29/18 11:46 01/29/18 11:45 Wound Center Nurse 2 #2- SACRUM -Time 11:46 -Correct Patient Yes -Correct Side, Site, Position Yes -Correct Procedure Yes -Procedure Performed Yes -Type of Procedure Debridement -Clinical Debridement Subcutaneous -Post Debridement Size (cm) - Length 3 -Post Debridement Size (cm) - Width 0.3 -Post Debridement Size (cm) - Depth 0.2 -Total Square Cm 0.9 -Wound/Ulcer Outcome Not Healed -Ulcer Cleansing Rinsed/ Irrigated with Saline -Foul Odor after Cleansing No -Bioengineered Tissue No -Bleeding Controlled with Pressure -Treatment Response Procedure Tolerated Well Pain Scale: 0-10 Numeric Is Patient Pain Free? Yes Wound debrided: #2 Sacral area. Laterality: Not Applicable Wound Grade/Stage: 3. Type of Debridement: Excisional debridement Anesthesia Used: 4% Lidocaine Solution Depth: Down to and including healthy tissue, in the subcutaneous layer Percentage of wound debrided: 100 Instrument Used: 5mm curette Tissue Removed: subcutaneous tissue. Severity: Fat Layer Exposed Amount of bleeding with debridement: Mild Bleeding Controlled with: Pressure Patient tolerated procedure well Assessment/Plan Assessment: 1. 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 2. ESRD on dialysis. 3. Diabetes mellitus. 4. Anemia of chronic disease. 5. Smoker. 6. s/p surgical preparation sacral and left gluteal area with excision recurrent extensive complicated pilonidal cyst ulcers with left gluteal extension and necrotizing anal sphincter muscle involvement (152 cm2). 7. Nonhealing ulcer sacral area. Plan: Continue Silver dressing changes daily. She is finished with her antibiotics. Encourage nutritional supplementation with protein to help the healing process. Followup 4 weeks. She is going to [facility] on 02/06/18 for a sphincter study.
== END 2018-02-20 23:59 ==
LOC: WC 08:59
PROVIDERS: Family Provider Family Medicine; PCP Family Medicine; Visit Provider Surgery
DX: L05.91 Pilonidal cyst without abscess (principal); L98.492 Non-pressure chronic ulcer of skin of other sites with fat layer exposed; E11.22 Type 2 diabetes mellitus with diabetic chronic kidney disease; N18.6 End stage renal disease; Z99.2 Dependence on renal dialysis; D63.8 Anemia in other chronic diseases classified elsewhere; F17.200 Nicotine dependence, unspecified, uncomplicated
CPT/HCPCS: 11042

== ENCOUNTER 2018-02-08 14:29 | Observation (INO) | payer MEDICARE, MEDICAID, SELFPAY ==
[2018-02-08] VITALS (9 sets, daily range): BP systolic 136–160; BP diastolic 62–74; PULSE 78–87; RESP 17–24; TEMP 36.3–37; O2SAT 94–98; BMI 33.3; BMI 31.4
--- NOTE | 2018-02-08 15:09 | EKG12_ITS ---
Test Reason : CP Blood Pressure : / mmHG Vent. Rate : 081 BPM Atrial Rate : 081 BPM P-R Int : 138 ms QRS Dur : 094 ms QT Int : 422 ms P-R-T Axes : 032 053 240 degrees QTc Int : 490 ms Normal sinus rhythm Left ventricular hypertrophy T wave abnormality, consider inferolateral ischemia Prolonged QT Abnormal ECG Confirmed by DIVINA BEASLEY, SUSI ([id number]), medical transcription editor SHANIA SOLITARIO ([id number]) on 02/09/2018 12:58:47 PM Referred By: KATARINA Confirmed By:SUSI MURCIA MD
--- NOTE | 2018-02-08 15:10 | RAD_ITS ---
STUDY: X-RAY CHEST REASON FOR EXAM: Female, 42 years old. Left-sided chest pain and shortness of breath. TECHNIQUE: Single AP portable view of the chest. COMPARISON: Comparison is made with prior study dated December 28, 2017. FINDINGS: EKG electrodes are seen. Mild increased markings at the right lung base as well as at the left lung base suggestive of bibasilar atelectasis. There is no demonstrated pleural abnormality. Normal size heart. Normal mediastinum and latrell. Normal visualized pulmonary arteries. Normal visualized aortic arch and descending thoracic aorta. Normal visualized thoracic spine. Deformity of the lower left ribs. This in keeping with healed rib fractures. There is no demonstrated abnormality of the visualized soft tissue structures of the upper abdomen. RAD/Chest 1 View (Portable) IMPRESSION: Increased markings at the lung bases. This is suggestive bibasilar atelectasis and/or early infiltrates. Stable deformity of the left ribs. Electronically Signed: Josh Hill MD at 15:24 EDT Tel [phone], Service support ,
[2018-02-08 15:44] LABS: Anion Gap 6 (5-15); BUN 32 mg/dL (7-18); BUN/Creat Ratio 6.7 RATIO (10-20); Calcium,Total 7.7 mg/dL (8.5-10.1); Chloride 96 mmol/L (98-107); Creatinine, Serum 4.78 mg/dL (0.55-1.02); EST Glomerular Filtration Rate 11 mL/min (>60); Est Glom Filt Rate - Afr Amer 13 mL/min (>60); Estimated Creatinine Clearance 14.06 ml/min; Glucose 436 mg/dL (74-106); Potassium 3.4 mmol/L (3.5-5.1); Sodium Level 136 mmol/L (136-145)
[2018-02-08 15:48] LABS: Absolute Lymphocyte Count 0.83 X10^3/ul (0.83-4.51); Absolute Neutrophil Count 4.1 X10^3/uL (2.0-7.7); Basophil# 0.01 X10^3/uL; Basophil% 0.2 % (0-1); Eosinophil# 0.25 X10^3/uL; Eosinophils% 4.6 % (0-5); Hemoglobin 10.8 g/dl (12.0-15.0); Lymphocyte # 0.83 X10^3/ul (4.0); Lymphocyte % 15.2 % (19-41); Mean Corp Hgb Conc 31.8 g/gl (32-36); Mean Corpuscular Hgb 31.7 pg (27.0-32.0); Mean Corpuscular Volume 99.7 fL (81-99); Mean Platelet Vol. 9.2 fl (6.2-12.0); Monocyte% 5.5 % (0-10); Neutrophil # 4.05 X10^3/uL (2.7-7.7); Neutrophil % 74.3 % (47-70); Platelet Count 192 K/mm3 (150-450); RBC Distribution Width CV 15.3 % (11.6-14.6); RBC Distribution Width SD 55.7 fl (35.1-43.9); Red Blood Count 3.41 M/mm3 (4.2-5.4); White Blood Count 5.5 K/mm3 (4.4-11.0)
[2018-02-08 15:49] LABS: POSITIVE COUNT NO; POSITIVE DIFFERENTIAL NO; POSITIVE MORPHOLOGY NO
--- NOTE | 2018-02-08 15:53 | ED.VISSUMM ---
- ER Visit Summary Date of Service: 02/08/18 Chief Complaint: [Chest pain] History of Present Illness: The patient is a 42 F [presents the emergency department complaint of chest discomfort started initially last evening while cleaning her basement. Patient states the pain lasted about an hour and a half last night and described it as sharp and radiating to her left arm and left neck. Patient felt somewhat short of breath with it and then it made her feel lightheaded and dizzy. This morning while at dialysis approximately 1 PM she developed the same chest discomfort again. The pain did make her nauseated and she felt clammy. The pain radiated into the neck and left arm. EMS was called and they gave her 1 sublingual nitro which resolved her pain and patient comes to the emergency department pain-free. Patient states that she does have a history of coronary artery disease and has one stent that was placed in 2008 but cannot remember where. Her electrical lineman is Dr. Magdaleno. Patient denies recent travel or surgery. Patient denies recent illness.] Physical Examination: [HEENT-PERRLA, EOMI. Cranial nerves II through XII grossly intact. TMs clear. Mucous membranes moist. No adenopathy. Cardiovascular-regular rate and rhythm without murmur or ectopy Lungs-clear to auscultation, chest wall stable without crepitus or subcu emphysema Abdomen-normoactive bowel sounds, soft, nontender, no rebound or rigidity, no peritoneal signs. Extremities-intact ?4, normal range of motion, normal pulses, atraumatic] Test Results: [EKG obtained on arrival showed a sinus rhythm with a ventricular rate of 81 bpm with LVH noted. Patient had nonspecific ST changes and that she had flipped T waves anterior laterally and inferiorly which are new when compared with prior EKG from January 11, 2018. CBC with differential obtained showed a white count of 5.5, hemoglobin 10.8, hematocrit 34, platelets 192. Chemistries unremarkable. BUN was 32 and creatinine was 4.78. Glucose was 436. Troponin less than 0.015. Chest x-ray showed increased markings in the bases which could represent atelectasis but could not rule out early infiltrate. I do not believe the patient has pneumonia.] Emergency Department Course and Treatment: [Patient received aspirin in the emergency department. Case was discussed with Dr. Tompkins who is on-call for cardiology. I was asked to admit patient medicine and they will consult. I spoke with Dr. Gamino who will evaluate patient for admission] Treatment Plan: [Patient will be admitted for further workup and evaluation of her chest pain] Disposition: [Admit] Impression: Chest pain-rule out acute coronary syndrome Hyperglycemia [] This note was generated with [employer] dictation software. It may contain incorrect words, spelling, and punctuation that were not noted in review of the chart prior to signing ED Disposition - Plan for ED Patient: Chief Complaint: Chest Pain Referrals: Christopher Foy MD [Primary Care Provider] -
[2018-02-08 16:07] LABS: Erythrocyte Sedimentation Rate 64 mm/hr (0-20)
--- NOTE | 2018-02-08 17:08 | NURSING ---
Viry notified patient may transfer to PCU.
--- NOTE | 2018-02-08 17:58 | EKG12_ITS ---
Test Reason : CP Blood Pressure : / mmHG Vent. Rate : 077 BPM Atrial Rate : 077 BPM P-R Int : 144 ms QRS Dur : 090 ms QT Int : 418 ms P-R-T Axes : 041 059 251 degrees QTc Int : 473 ms Normal sinus rhythm T wave abnormality, consider inferolateral ischemia Prolonged QT Abnormal ECG Confirmed by CHEPE BEASLEY, KAITLYNN ([id number]), general expeditor SHANIA SOLITARIO ([id number]) on 02/13/2018 1:20:39 PM Referred By: JOSE Confirmed By:KAITLYNN MO MD
[2018-02-08] MEDS: Morphine 2 MG/ML Syringe IV (18:45)
[2018-02-08] MEDS: Insulin Lispro 100 UNIT/ML INSULN.PEN 10 UNIT SC (18:46)
[2018-02-08 18:56] LABS: Bedside Glucose 250 mg/dL (70-110)
--- NOTE | 2018-02-08 19:29 | PCM.HP.STD ---
Problem List (1) Chest pain Status: Acute Qualifiers: Chest pain type: precordial pain Qualified Code(s): R07.2 - Precordial pain History of Present Illness Date of Admission: 02/08/18 Chief Complaint: Chest pain The patient is a 42 year old F who was seen in the emergency room at [facility] after experiencing chest pain at her dialysis today. Patient's described the chest pain as precordial, left-sided, radiating into her left neck area, and pressure-like in quality. Patient was at rest today when it started, it lasted for approximately an hour, patient related that after she got a nitroglycerin and the squad the chest pain resolved. Patient also stated that last night she experienced an identical pain that lasted approximately an hour while she was leaning the basement, this chest pain went away spontaneously and she did not take any nitroglycerin. Evaluation in the emergency room included an EKG which showed T-wave inversions and 2 3 aVF as well as V 4 5 and 6. Chest x-ray showed a stable deformity of the left ribs and bibasilar infiltrates or atelectasis. Labs were obtained and were remarkable for a creatinine of 4.78, BUN of 32, hemoglobin of 10.8, glucose of 436, potassium 3.4, and the patient's troponin was below 0.015. Patient will be placed in observation status on PCU, cardiac enzymes will be cycled, she will undergo a stress echo tomorrow, I talked with Dr. Tompkins about this and that was his recommendation. Dr. Magdaleno will be reading the stress echo. Nephrology will see the patient during her hospitalization. Past Medical History Past Medical History (Chronic Problems): Chronic Problems ESRD (end stage renal disease) on dialysis (Chronic) Decubitus ulcer, stage III (Chronic) CAD (coronary artery disease) (Chronic) Anemia, chronic disease (Chronic) Pilonidal cyst with abscess (Chronic) GABRIEL (obstructive sleep apnea) (Chronic) ESRD on dialysis (Chronic) Depression (Chronic) Anxiety (Chronic) HTN (hypertension) (Chronic) Nonischemic cardiomyopathy (Chronic) With ejection fraction 45 - 50%; with angiographically normal coronary arteries 05/2013; follows up with Dr. Magdaleno S/P repair of PDA (patent ductus arteriosus) (Chronic) At young age Diabetes mellitus type 1 (Chronic) Hyperlipidemia (Chronic) Obesity (BMI 30.0-34.9) (Chronic) Gastroparesis (Chronic) Allergies latex Allergy (Verified 02/08/18 14:54) Rash levofloxacin [From Levaquin] Adverse Reaction (Verified 02/08/18 14:54) PT CAN'T REMEMBER PT CAN'T REMEMBER metoclopramide HCl [From Reglan] Adverse Reaction (Verified 02/08/18 14:54) Nausea NSAIDS (Non-Steroidal Anti-Inflamma Adverse Reaction (Verified 02/08/18 14:54) kidney function oxycodone HCl [From Percocet] Adverse Reaction (Verified 02/08/18 14:54) HALLUCINATIONS Home Medications: Ambulatory Orders Medication Instructions Recorded Aspirin [Aspirin, Baby] 81 mg PO DAILY@0800 01/26/16 Calcium Acetate [Phoslo Gel Cap] 1,334 mg PO TIDCM 01/26/16 Ergocalciferol [Vitamin D] 50,000 unit PO FR 01/26/16 Insulin Aspart [Novolog Flexpen] 10 units SC TIDCM 01/26/16 Insulin Glargine,Hum.rec.anlog 5 unit SQ QHS 01/09/17 [Lantus] proMETHazine tablet [Phenergan 25 mg PO Q6H PRN PRN #10 tablet 03/06/17 tablet] Lisinopril 20 mg PO DAILY 03/29/17 Sodium Bicarbonate 650 mg PO TUTHSA 03/29/17 Carvedilol [Coreg (Beta Chang)] 25 mg PO BID 06/17/17 Fluoxetine HCl 40 mg PO DAILY 09/02/17 ALPRAZolam [Xanax] 0.5 mg PO DAILY 11/21/17 Ondansetron [Zofran Odt] 4 mg PO Q8H PRN PRN #10 tablet 01/27/18 Atorvastatin Calcium 20 mg PO QHS 02/08/18 Dicyclomine HCl [Bentyl] 20 mg PO 4X/DAY PRN PRN 02/08/18 Isosorbide DN [Isordil] 60 mg PO DAILY 02/08/18 Naproxen [Naproxen] 500 mg PO BID PRN PRN 02/08/18 Omeprazole Magnesium [Prilosec Otc] 20 mg PO DAILY 02/08/18 Surgical History: appendectomy, hysterectomy - and BSO, - - c-sections, L breast I+D for abscess, fistula placement LUE, L ankle surgery, appendectomy, PDA repair. Excision pilonidal cyst ulcer about 4 years ago. 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 Lives: Spouse/ Significant Other Smoking Status: Light Smoker (<10/day) Tobacco Use: Cigarettes Alcohol: None Drugs: None - *Family History Maternal History Items: Cancer, COPD, Diabetes, Hypertension, Renal Disease, Stroke Paternal History Items: Diabetes Sibling History Items: Cancer, Diabetes Review of Systems Constitutional: Denies: Anorexia, Chills, Fever, Night Sweats, Malaise, Weakness, Weight Change, Fatigue Eyes: Denies: Blurred vision, Cataracts, Conjunctivae Inflammation, Double vision, Drainage HEENT: Denies: Difficulty Swallowing, Dysphasia, Ear Pain, Eye Pain, Hearing Changes, Nasal bleeding, Nasal Congestion, Post Nasal Drip, Sore Throat, Visual Changes Cardiovascular: Reports: Chest Pain, Chest Pressure, Heaviness. Denies: Claudication, Chest Tightness, Edema, Light Headedness, Orthopnea, Palpitations, Paroxysmal Noc. Dyspnea, Syncope Respiratory: Denies: Cough, Hemoptysis, Pleuritic Pain, Shortness of Breath, Shortness of breath at rest, Shortness of breath upon exertion, Sputum production, Wheezing Gastrointestinal: Denies: Abdominal Pain, Constipation, Diarrhea, Hematemesis, Hematochezia, Nausea, Melena, Vomiting Genitourinary: Denies: Dysuria, Frequency, Hematuria, Hesitancy, Incontinence, Nocturia, Urgency Gynecological: Denies: Breast symptoms Musculoskeletal: Denies: Back Pain, Foot Pain, Hand Pain, Joint Pain, Joint stiffness, Joint swelling, Joint Tenderness, Leg Pain Skin: Denies: Dryness, Pruritis, Rash Neurological: Denies: Balance problems, Blurred vision, Double vision, Slurred speech, Difficulty swallowing, Focal weakness, Headaches, Incoordination, Numbness, Tingling Psychiatric: Denies: Anxiety, Depression, Homicidal Ideations, Suicidal Ideations Endocrine: Denies: Change in Body Habitus, Heat/ Cold Intolerance, Polydipsia, Polyuria Hematologic/ Lymphatic: Denies: Adenopathy, Anemia, Easy Bruising, Easy Bleeding, Petechiae, Purpura VTE Information - Inpt Only VTE Present on Admission: No VTE Mechan Device Prophylaxis: None VTE Pharm Prophylaxis ordered?: Yes Patient Problems: Active and Suspected Problems Chest pain (Acute) - Physical Exam General: Alert, Oriented x3, Cooperative, No apparent distress, Well developed, Well nourished HEENT: Atraumatic, PERRLA, EOMI, Normocephalic Oral: Moist Mucosa Neck: Supple, No JVD, Negative Carotid Bruits, No Nuchal Rigidity, Trachea Midline, Thyroid Normal Size and Texture Lungs: Clear to auscultation, Normal air movement, No rhonchi, No wheeze, No rales Cardiovascular: Regular rate, Regular Rhythm, Normal S1, Normal S2, No murmurs, No Ectopic Activity, PMI Normal, No rub noted, No Gallop Abdomen: Bowel Sounds Present, Soft, Non Tender, - - Colostomy in place Extremities: No clubbing, No cyanosis, No edema, Capillary Refill Less than 3 Seconds Skin: No rashes, No breakdown Musculoskeletal: No Tenderness to Palpation of Joints or Extremities Neurological: Cranial nerves II-XII grossly intact, Neuro grossly intact, Sensory exam intact to light touch and pain, Coordination normal Psych/Mental Status: Normal Affect, Appropriate, Alert and oriented to time, place, person, mood and affect Vital Signs Temp Pulse Resp BP Pulse Ox 97.4 F L 87 17 153/74 H 98 02/08/18 18:00 02/08/18 19:00 02/08/18 18:00 02/08/18 18:00 02/08/18 18:00 Oxygen Flow Rate (L/min) 2 Oxygen Delivery Method Nasal Cannula Weight: 88.3 kg Body Mass Index (BMI) 31.4 Intake and Output for Last 24 Hours 02/06/18 02/07/18 02/08/18 23:59 23:59 23:59 Intake Total 120 / 120 Balance 120 / 120 Laboratory Tests Past 24 Hrs 02/08/18 18:12 Troponin I < 0.015 POC Glucose 02/08/18 18:44 POC Glucose 250 H Assessment/Plan All Active Problems Chest pain (Acute) Tooth abscess (Resolved) Intractable nausea and vomiting (Resolved) Pneumonia (Resolved) Pulmonary edema (Resolved) Hyperkalemia (Resolved) Atypical chest pain (Resolved) Acute hypoxic respiratory failure (Resolved) Pulmonary edema (Resolved) Clostridium difficile enterocolitis (Resolved) Necrotizing myositis (Resolved) Dysmenorrhea (Resolved) Hx of necrotizing fascIItis (Resolved) Iron deficiency anemia due to chronic blood loss (Resolved) Systolic congestive heart failure (Resolved) #1 chest pain-in a patient with known history of coronary artery disease, patient will be placed in observation status on PCU, cardiac enzymes will be cycled, patient will undergo a stress echo tomorrow if cardiac enzymes remain negative #2 T-wave inversions inferior and lateral wall leads-significance unknown at this time, again patient has a history of coronary artery disease and her last EKG in December 2017 did not show these T-wave changes. Patient will undergo a stress echo tomorrow if her enzymes remain negative #3 end-stage renal disease currently on dialysis-nephrology will see the patient, patient completed all but 30 minutes of her dialysis today according to her #4 type 2 diabetes-blood sugar will be monitored, sliding scale insulin will given per protocol #5 anemia of chronic renal disease #6 hypertension #7 hyperlipidemia #8 depression Code Visit OBSV E&M: 28866 Initial observation care L3
--- NOTE | 2018-02-08 19:39 | HP.PCM_ITS ---
Problem List (1) Chest pain Status: Acute Qualifiers: Chest pain type: precordial pain Qualified Code(s): R07.2 - Precordial pain History of Present Illness Date of Admission: 02/08/18 Chief Complaint: Chest pain The patient is a 42 year old F who was seen in the emergency room at [facility] after experiencing chest pain at her dialysis today. Patient 's described the chest pain as precordial, left-sided, radiating into her left neck area, and pressure-like in quality. Patient was at rest today when it started, it lasted for approximately an hour, patient related that after she got a nitroglycerin and the squad the chest pain resolved. Patient also stated that last night she experienced an identical pain that lasted approximately an hour while she was leaning the basement, this chest pain went away spontaneously and she did not take any nitroglycerin. Evaluation in the emergency room included an EKG which showed T-wave inversions and 2 3 aVF as well as V 4 5 and 6. Chest x-ray showed a stable deformity of the left ribs and bibasilar infiltrates or atelectasis. Labs were obtained and were remarkable for a creatinine of 4.78, BUN of 32, hemoglobin of 10.8, glucose of 436, potassium 3.4, and the patient's troponin was below 0.015. Patient will be placed in observation status on PCU, cardiac enzymes will be cycled, she will undergo a stress echo tomorrow, I talked with Dr. Tompkins about this and that was his recommendation. Dr. Magdaleno will be reading the stress echo. Nephrology will see the patient during her hospitalization. Past Medical History Past Medical History (Chronic Problems): Chronic Problems ESRD (end stage renal disease) on dialysis (Chronic) Decubitus ulcer, stage III (Chronic) CAD (coronary artery disease) (Chronic) Anemia, chronic disease (Chronic) Pilonidal cyst with abscess (Chronic) GABRIEL (obstructive sleep apnea) (Chronic) ESRD on dialysis (Chronic) Depression (Chronic) Anxiety (Chronic) HTN (hypertension) (Chronic) Nonischemic cardiomyopathy (Chronic) With ejection fraction 45 - 50%; with angiographically normal coronary arteries 05/2013; follows up with Dr. Magdaleno S/P repair of PDA (patent ductus arteriosus) (Chronic) At young age Diabetes mellitus type 1 (Chronic) Hyperlipidemia (Chronic) Obesity (BMI 30.0-34.9) (Chronic) Gastroparesis (Chronic) Allergies latex Allergy (Verified 02/08/18 14:54) Rash levofloxacin [From Levaquin] Adverse Reaction (Verified 02/08/18 14:54) PT CAN'T REMEMBER PT CAN'T REMEMBER metoclopramide HCl [From Reglan] Adverse Reaction (Verified 02/08/18 14:54) Nausea NSAIDS (Non-Steroidal Anti-Inflamma Adverse Reaction (Verified 02/08/18 14:54) kidney function oxycodone HCl [From Percocet] Adverse Reaction (Verified 02/08/18 14:54) HALLUCINATIONS Home Medications: Ambulatory Orders Medication Instructions Recorded Aspirin [Aspirin, Baby] 81 mg PO DAILY@0800 01/26/16 Calcium Acetate [Phoslo Gel Cap] 1,334 mg PO TIDCM 01/26/16 Ergocalciferol [Vitamin D] 50,000 unit PO FR 01/26/16 Insulin Aspart [Novolog Flexpen] 10 units SC TIDCM 01/26/16 Insulin Glargine,Hum.rec.anlog 5 unit SQ QHS 01/09/17 [Lantus] proMETHazine tablet [Phenergan 25 mg PO Q6H PRN PRN #10 tablet 03/06/17 tablet] Lisinopril 20 mg PO DAILY 03/29/17 Sodium Bicarbonate 650 mg PO TUTHSA 03/29/17 Carvedilol [Coreg (Beta Chang)] 25 mg PO BID 06/17/17 Fluoxetine HCl 40 mg PO DAILY 09/02/17 ALPRAZolam [Xanax] 0.5 mg PO DAILY 11/21/17 Ondansetron [Zofran Odt] 4 mg PO Q8H PRN PRN #10 tablet 01/27/18 Atorvastatin Calcium 20 mg PO QHS 02/08/18 Dicyclomine HCl [Bentyl] 20 mg PO 4X/DAY PRN PRN 02/08/18 Isosorbide DN [Isordil] 60 mg PO DAILY 02/08/18 Naproxen [Naproxen] 500 mg PO BID PRN PRN 02/08/18 Omeprazole Magnesium [Prilosec Otc] 20 mg PO DAILY 02/08/18 Surgical History: appendectomy, hysterectomy - and BSO, - - c-sections, L breast I+D for abscess, fistula placement LUE, L ankle surgery, appendectomy, PDA repair. Excision pilonidal cyst ulcer about 4 years ago. 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 Lives: Spouse/ Significant Other Smoking Status: Light Smoker (<10/day) Tobacco Use: Cigarettes Alcohol: None Drugs: None - *Family History Maternal History Items: Cancer, COPD, Diabetes, Hypertension, Renal Disease, Stroke Paternal History Items: Diabetes Sibling History Items: Cancer, Diabetes Review of Systems Constitutional: Denies: Anorexia, Chills, Fever, Night Sweats, Malaise, Weakness , Weight Change, Fatigue Eyes: Denies: Blurred vision, Cataracts, Conjunctivae Inflammation, Double vision, Drainage HEENT: Denies: Difficulty Swallowing, Dysphasia, Ear Pain, Eye Pain, Hearing Changes, Nasal bleeding, Nasal Congestion, Post Nasal Drip, Sore Throat, Visual Changes Cardiovascular: Reports: Chest Pain, Chest Pressure, Heaviness. Denies: Claudication, Chest Tightness, Edema, Light Headedness, Orthopnea, Palpitations , Paroxysmal Noc. Dyspnea, Syncope Respiratory: Denies: Cough, Hemoptysis, Pleuritic Pain, Shortness of Breath, Shortness of breath at rest, Shortness of breath upon exertion, Sputum production, Wheezing Gastrointestinal: Denies: Abdominal Pain, Constipation, Diarrhea, Hematemesis, Hematochezia, Nausea, Melena, Vomiting Genitourinary: Denies: Dysuria, Frequency, Hematuria, Hesitancy, Incontinence, Nocturia, Urgency Gynecological: Denies: Breast symptoms Musculoskeletal: Denies: Back Pain, Foot Pain, Hand Pain, Joint Pain, Joint stiffness, Joint swelling, Joint Tenderness, Leg Pain Skin: Denies: Dryness, Pruritis, Rash Neurological: Denies: Balance problems, Blurred vision, Double vision, Slurred speech, Difficulty swallowing, Focal weakness, Headaches, Incoordination, Numbness, Tingling Psychiatric: Denies: Anxiety, Depression, Homicidal Ideations, Suicidal Ideations Endocrine: Denies: Change in Body Habitus, Heat/ Cold Intolerance, Polydipsia, Polyuria Hematologic/ Lymphatic: Denies: Adenopathy, Anemia, Easy Bruising, Easy Bleeding , Petechiae, Purpura VTE Information - Inpt Only VTE Present on Admission: No VTE Mechan Device Prophylaxis: None VTE Pharm Prophylaxis ordered?: Yes Patient Problems: Active and Suspected Problems Chest pain (Acute) - Physical Exam General: Alert, Oriented x3, Cooperative, No apparent distress, Well developed, Well nourished HEENT: Atraumatic, PERRLA, EOMI, Normocephalic Oral: Moist Mucosa Neck: Supple, No JVD, Negative Carotid Bruits, No Nuchal Rigidity, Trachea Midline, Thyroid Normal Size and Texture Lungs: Clear to auscultation, Normal air movement, No rhonchi, No wheeze, No rales Cardiovascular: Regular rate, Regular Rhythm, Normal S1, Normal S2, No murmurs, No Ectopic Activity, PMI Normal, No rub noted, No Gallop Abdomen: Bowel Sounds Present, Soft, Non Tender, - - Colostomy in place Extremities: No clubbing, No cyanosis, No edema, Capillary Refill Less than 3 Seconds Skin: No rashes, No breakdown Musculoskeletal: No Tenderness to Palpation of Joints or Extremities Neurological: Cranial nerves II-XII grossly intact, Neuro grossly intact, Sensory exam intact to light touch and pain, Coordination normal Psych/Mental Status: Normal Affect, Appropriate, Alert and oriented to time, place, person, mood and affect Vital Signs Temp Pulse Resp BP Pulse Ox 97.4 F L 87 17 153/74 H 98 02/08/18 18:00 02/08/18 19:00 02/08/18 18:00 02/08/18 18:00 02/08/18 18:00 Oxygen Flow Rate (L/min) 2 Oxygen Delivery Method Nasal Cannula Weight: 88.3 kg Body Mass Index (BMI) 31.4 Intake and Output for Last 24 Hours 02/06/18 02/07/18 02/08/18 23:59 23:59 23:59 Intake Total 120 / 120 Balance 120 / 120 Laboratory Tests Past 24 Hrs 02/08/18 18:12 Troponin I < 0.015 POC Glucose 02/08/18 18:44 POC Glucose 250 H Assessment/Plan All Active Problems Chest pain (Acute) Tooth abscess (Resolved) Intractable nausea and vomiting (Resolved) Pneumonia (Resolved) Pulmonary edema (Resolved) Hyperkalemia (Resolved) Atypical chest pain (Resolved) Acute hypoxic respiratory failure (Resolved) Pulmonary edema (Resolved) Clostridium difficile enterocolitis (Resolved) Necrotizing myositis (Resolved) Dysmenorrhea (Resolved) Hx of necrotizing fascIItis (Resolved) Iron deficiency anemia due to chronic blood loss (Resolved) Systolic congestive heart failure (Resolved) #1 chest pain-in a patient with known history of coronary artery disease, patient will be placed in observation status on PCU, cardiac enzymes will be cycled, patient will undergo a stress echo tomorrow if cardiac enzymes remain negative #2 T-wave inversions inferior and lateral wall leads-significance unknown at this time, again patient has a history of coronary artery disease and her last EKG in December 2017 did not show these T-wave changes. Patient will undergo a stress echo tomorrow if her enzymes remain negative #3 end-stage renal disease currently on dialysis-nephrology will see the patient , patient completed all but 30 minutes of her dialysis today according to her #4 type 2 diabetes-blood sugar will be monitored, sliding scale insulin will given per protocol #5 anemia of chronic renal disease #6 hypertension #7 hyperlipidemia #8 depression Code Visit OBSV E&M: 76447 Initial observation care L3
[2018-02-08] MEDS: Calcium Acetate 667 MG Capsule 1334 MG PO (21:47)
[2018-02-08] MEDS: Sodium Bicarbonate 650 MG Tablet PO (21:47)
[2018-02-08] MEDS: Atorvastatin Calcium 20 MG Tablet PO (21:48)
[2018-02-08] MEDS: Carvedilol 25 MG Tablet PO (21:48)
[2018-02-08] MEDS: Heparin Injection (Vial) 5,000 UNIT/ML VIAL 5000 UNIT SC (21:48)
[2018-02-08] MEDS: Acetaminophen 325 MG Tablet 650 MG PO (21:49)
[2018-02-08] MEDS: proMETHazine 25 MG Tablet PO (21:49)
[2018-02-08] MEDS: Insulin Lispro 100 UNIT/ML INSULN.PEN SC (21:49)
[2018-02-08 22:50] LABS: Bedside Glucose 186 mg/dL (70-110)
[2018-02-09] MEDS: Morphine 2 MG/ML Syringe IV ×2 (00:10→08:58)
[2018-02-09] MEDS: Ondansetron 4 MG/2 ML Vial IV (00:11)
[2018-02-09 01:27] VITALS: BP 154/74; PULSE 75; RESP 16; TEMP 36.9; O2SAT 97
--- NOTE | 2018-02-09 01:29 | NURSING ---
PT CALLS OUT STATING SHE DOESN'T FEEL WELL. STATES SHE MAY BE HYPOGLYCEMIC. BGT IS WNL. VS TAKEN WNL. PT UNABLE TO VERBALIZE SPECIFIC SYMPTOMS OTHER THAN MY HEAD FEELS FUNNY. REMINDED PT THAT SHE HAS HAD MORPHINE AND PROMETHEZINE RECENTLY. WILL CONTINUE TO MONITOR.
[2018-02-09 01:31] LABS: Bedside Glucose 169 mg/dL (70-110)
[2018-02-09 02:58] VITALS: PULSE 78
[2018-02-09] MEDS: Acetaminophen 325 MG Tablet 650 MG PO (05:07)
[2018-02-09] MEDS: Lisinopril 20 MG Tablet PO (05:22)
[2018-02-09] MEDS: Aspirin 81 MG TAB.CHEW PO (05:22)
[2018-02-09 05:30] LABS: Absolute Lymphocyte Count 1.52 X10^3/ul (0.83-4.51); Absolute Neutrophil Count 3.4 X10^3/uL (2.0-7.7); Basophil# 0.02 X10^3/uL; Basophil% 0.4 % (0-1); Eosinophil# 0.31 X10^3/uL; Eosinophils% 5.6 % (0-5); Hematocrit 35.1 % (37-47); Hemoglobin 11.1 g/dl (12.0-15.0); Lymphocyte # 1.52 X10^3/ul (4.0); Lymphocyte % 27.3 % (19-41); Mean Corp Hgb Conc 31.6 g/gl (32-36); Mean Corpuscular Hgb 32.4 pg (27.0-32.0); Mean Corpuscular Volume 102.3 fL (81-99); Mean Platelet Vol. 8.7 fl (6.2-12.0); Monocyte# 0.26 X10^3/uL; Monocyte% 4.7 % (0-10); Neutrophil # 3.43 X10^3/uL (2.7-7.7); Neutrophil % 61.5 % (47-70); Platelet Count 182 K/mm3 (150-450); RBC Distribution Width SD 54.6 fl (35.1-43.9); Red Blood Count 3.43 M/mm3 (4.2-5.4); White Blood Count 5.6 K/mm3 (4.4-11.0)
[2018-02-09 05:32] LABS: POSITIVE COUNT NO; POSITIVE DIFFERENTIAL NO; POSITIVE MORPHOLOGY NO
[2018-02-09 05:43] LABS: International Normalized Ratio 1.2; Prothrombin Time (Protime)PT. 14.8 SECONDS (11.7-14.9)
[2018-02-09 05:44] LABS: Partial Thromboplast Time 31.3 Seconds (24.1-36.2)
--- NOTE | 2018-02-09 05:55 | EKG12_ITS ---
Test Reason : AM EKG Blood Pressure : / mmHG Vent. Rate : 070 BPM Atrial Rate : 070 BPM P-R Int : 142 ms QRS Dur : 090 ms QT Int : 454 ms P-R-T Axes : 032 043 085 degrees QTc Int : 490 ms Normal sinus rhythm Nonspecific T wave abnormality Prolonged QT Abnormal ECG When compared with ECG of 08-FEB-2018 18:05, MANUAL COMPARISON REQUIRED, DATA IS UNCONFIRMED Confirmed by WM UNDERWOOD ([id number]), newspaper photo editor SHANIA SOLITARIO ([id number]) on 02/13/2018 2:01:28 PM Referred By: DR GARCIA Confirmed By:WM UNDERWOOD
--- NOTE | 2018-02-09 05:55 | STE_ITS ---
Version 2 Reason For Study: CAD/ASHD, CHEST PAIN Stress Results Protocol: Dobutamine Protocol Maximum Predicted HR: 176 bpm Target HR: 150 bpm% Maximum Predicted HR: 74 % DurationHeart Rate Stage (mm:ss) (bpm) BPDos e Comment BASELINE 75 158/76 2CC DEFINITY STAGE 1 4:29 74 / 10. 002 CC DEFINTY STAGE 2 3:47 88 160/7820.00 STAGE 3 3:00 10 3 170/8230.000.5 MG ATROPINE STAGE 4 5:32 13 0 180/8040.000.5 MG ATROPINE RECOVERY 95 120/70 2 CC DEFINITY Stress Duration: 16:48 mm:ss Maximum Stress HR: 130 bpm Baseline Echocardiogram Findings The estimated ejection fraction is 45 %. Stress Echo Wall motion Data Resting WMIntermediate WMStress WM Resting Wall Motion Wall Motion Stress Posterior-Basal: Severely All other walton contracted hypokinetic. normally with dobutamine Infero-Basal: Severely infusion. Inferior/posterior wall Hypokinetic. remained severely hypokinetic Mid-Inferior: Severely throughtout infusion. Hypokinetic. EKG Data Normal intervals are noted. The patient was titrated from 10 mcg to a maximum of 40 mcg of dobutamine during the stress. The maximum heart rate attained was 129 beats per minute. This was 73% of maximum predicted heart rate. During dobutamine infusion, there were no ST or T wave changes noted to suggest ischemia. No clinical angina was noted. Interpretation Summary The estimated ejection fraction is 45 %. Posterior-Basal: Severely hypokinetic. Infero-Basal: Severely Hypokinetic. Mid-Inferior: Severely Hypokinetic. Normal, adequate, dobutamine echocardiogram. Negative for ischemia by EKG and echocardiographic criteria. No anginall symptoms noted. Patient had baseline severe inferior posterior hypokinesis, which did not improve with infusion. All other awlton contracted normally during infusion and at peak infusion. Rare PACs and PVCs noted. Hypertensive blood pressure response to dobutamine. Decreased sensitivity due to failure to reach target heart rate although rate pressure product was adequate. Decreased sensitivity due to poor echo windows requiring Definity enhancing agent. Final LVEF of 55%. No complications. Ordering Physician: Srinivasan Gamino Referring Physician: Srinivasan Gamino DO Performed By: Marika Acevedo, TEO, RVT
[2018-02-09 06:01] LABS: Anion Gap 8 (5-15); BUN 43 mg/dL (7-18); BUN/Creat Ratio 7.4 RATIO (10-20); Calcium,Total 8.3 mg/dL (8.5-10.1); Chloride 102 mmol/L (98-107); Creatinine, Serum 5.79 mg/dL (0.55-1.02); EST Glomerular Filtration Rate 8 mL/min (>60); Est Glom Filt Rate - Afr Amer 10 mL/min (>60); Estimated Creatinine Clearance 11.61 ml/min; Glucose 129 mg/dL (74-106); Potassium 4.4 mmol/L (3.5-5.1); Sodium Level 140 mmol/L (136-145)
[2018-02-09 06:54] VITALS: BP 153/73; PULSE 73; RESP 16; TEMP 36.5; O2SAT 94
[2018-02-09 06:59] VITALS: PULSE 77
[2018-02-09 07:00] LABS: Bedside Glucose 135 mg/dL (70-110)
[2018-02-09 10:24] VITALS: BP 154/76; PULSE 73; RESP 18; TEMP 36.7; O2SAT 99
--- NOTE | 2018-02-09 11:03 | DCINST_ITS ---
- Discharge Diagnoses Current Active Problems: Current Active and Chronic Problems Chest pain (Acute) You will use the following diet at home:: Cardiac, Renal (restricted protein/ sodium) Discharge Activity: Return to Normal Activity Call your doctor if you observe: Shortness of breath, Dizziness, Fainting spells , Chest pain Allergies/Adverse Reactions: Allergies latex Allergy (Verified 02/08/18 14:54) Rash levofloxacin [From Levaquin] Adverse Reaction (Verified 02/08/18 14:54) PT CAN'T REMEMBER PT CAN'T REMEMBER metoclopramide HCl [From Reglan] Adverse Reaction (Verified 02/08/18 14:54) Nausea NSAIDS (Non-Steroidal Anti-Inflamma Adverse Reaction (Verified 02/08/18 14:54) kidney function oxycodone HCl [From Percocet] Adverse Reaction (Verified 02/08/18 14:54) HALLUCINATIONS Medications to take at Discharge Aspirin [Aspirin, Baby] 81 mg PO DAILY@0800 01/26/16 Calcium Acetate [Phoslo Gel Cap] 1,334 mg PO TIDCM 01/26/16 Ergocalciferol [Vitamin D] 50,000 unit PO FR 01/26/16 Insulin Aspart [Novolog Flexpen] 10 units SC TIDCM 01/26/16 Insulin Glargine,Hum.rec.anlog [Lantus] 5 unit SQ QHS 01/09/17 proMETHazine tablet [Phenergan tablet] 25 mg PO Q6H PRN PRN #10 tablet 03/06/17 Lisinopril 20 mg PO DAILY 03/29/17 Sodium Bicarbonate 650 mg PO TUTHSA 03/29/17 Carvedilol [Coreg (Beta Chang)] 25 mg PO BID 06/17/17 Fluoxetine HCl 40 mg PO DAILY 09/02/17 ALPRAZolam [Xanax] 0.5 mg PO DAILY 11/21/17 Ondansetron [Zofran Odt] 4 mg PO Q8H PRN PRN #10 tablet 01/27/18 Atorvastatin Calcium 20 mg PO QHS 02/08/18 Dicyclomine HCl [Bentyl] 20 mg PO 4X/DAY PRN PRN 02/08/18 Isosorbide DN [Isordil] 60 mg PO DAILY 02/08/18 Naproxen 500 mg PO BID PRN PRN 02/08/18 Omeprazole Magnesium [Prilosec Otc] 20 mg PO DAILY 02/08/18 Primary Care Physician: Christopher Foy MD [Primary Care Provider] - Please follow up with your Primary Care Physician in: 1 Week Test Results: Test results from this visit will be discussed in further detail at your follow- up appointment, if applicable. Proposed Discharge Date: 02/09/18
--- NOTE | 2018-02-09 11:03 | PCM.DC.SUM ---
Discharge Date and Diagnosis Date of Admission: 02/08/18 Date of Discharge: 02/09/18 - Primary Discharge Diagnosis Active and Suspected Problems 1. Chest pain- ACS ruled out - Secondary Discharge Diagnosis Chronic Problems ESRD (end stage renal disease) on dialysis (Chronic) Decubitus ulcer, stage III (Chronic) CAD (coronary artery disease) (Chronic) Anemia, chronic disease (Chronic) Pilonidal cyst with abscess (Chronic) GABRIEL (obstructive sleep apnea) (Chronic) ESRD on dialysis (Chronic) Depression (Chronic) Anxiety (Chronic) HTN (hypertension) (Chronic) Nonischemic cardiomyopathy (Chronic) With ejection fraction 45 - 50%; with angiographically normal coronary arteries 05/2013; follows up with Dr. Magdaleno S/P repair of PDA (patent ductus arteriosus) (Chronic) At young age Diabetes mellitus type 1 (Chronic) Hyperlipidemia (Chronic) Obesity (BMI 30.0-34.9) (Chronic) Gastroparesis (Chronic) Hospital Course and Treatment Imaging Results: Diagnostic Data Chest X-Ray 02/08/18 15:10 IMPRESSION: Increased markings at the lung bases. This is suggestive bibasilar atelectasis and/or early infiltrates. Stable deformity of the left ribs. Electronically Signed: Josh Hill MD at 15:24 EDT Tel [phone], Service support , Operations: None Procedures: - - Stress echo Summary of Care Provided: Patient is a 42-year-old female admitted 02/08/2018 due to chest pain. She has a past medical history of type 2 diabetes mellitus with neuropathy, gastroparesis, hypertension, hyperlipidemia, tobacco dependence, obesity, systolic CHF, CAD status post 2013 catheterization with mild LAD disease, anxiety, depression, anemia of chronic disease, iron deficiency anemia, end-stage renal disease on hemodialysis. Chest pain occurred during dialysis prior to admission. No further chest pain since admission. Troponin negative. Patient underwent nuclear stress test which demonstrated no evidence of ischemia. LVEF 55%. ACS ruled out. Patient is stable for discharge home with further follow-up with primary care physician in 1 week. She will continue routine follow-up with nephrology, schedule dialysis. Patient seen and examined prior to discharge. Alert, oriented, no acute distress. Lungs clear, diminished. Heart rate regular rate and rhythm, no murmur. Abdomen soft, nontender, obese, colostomy intact. No edema. Neuro grossly intact. Normal affect. Vital signs stable. This patient was seen by SATNAM Mcgraw under the supervision of Dr. Charles. Discharge Diet: Low fat/ Low Cholesterol, Renal Diet Discharge Activity: Return to Normal Activity Call your doctor if you observe: Shortness of breath, Dizziness, Fainting spells, Chest pain Home Medications: Medications to take at Discharge Aspirin [Aspirin, Baby] 81 mg PO DAILY@0800 01/26/16 Calcium Acetate [Phoslo Gel Cap] 1,334 mg PO TIDCM 01/26/16 Ergocalciferol [Vitamin D] 50,000 unit PO FR 01/26/16 Insulin Aspart [Novolog Flexpen] 10 units SC TIDCM 01/26/16 Insulin Glargine,Hum.rec.anlog [Lantus] 5 unit SQ QHS 01/09/17 proMETHazine tablet [Phenergan tablet] 25 mg PO Q6H PRN PRN #10 tablet 03/06/17 Lisinopril 20 mg PO DAILY 03/29/17 Sodium Bicarbonate 650 mg PO TUTHSA 03/29/17 Carvedilol [Coreg (Beta Chang)] 25 mg PO BID 06/17/17 Fluoxetine HCl 40 mg PO DAILY 09/02/17 ALPRAZolam [Xanax] 0.5 mg PO DAILY 11/21/17 Ondansetron [Zofran Odt] 4 mg PO Q8H PRN PRN #10 tablet 01/27/18 Atorvastatin Calcium 20 mg PO QHS 02/08/18 Dicyclomine HCl [Bentyl] 20 mg PO 4X/DAY PRN PRN 02/08/18 Isosorbide DN [Isordil] 60 mg PO DAILY 02/08/18 Naproxen 500 mg PO BID PRN PRN 02/08/18 Omeprazole Magnesium [Prilosec Otc] 20 mg PO DAILY 02/08/18 Primary Care Physician: Christopher Foy MD [Primary Care Provider] - Please follow up with your Primary Care Physician in: 1 Week Disposition: Home Minutes spent on discharge:: 35 Patient Condition:: Stable Medical Necessity - Tobacco Use Smoking Status: Light Smoker (<10/day) Tobacco Use: Cigarettes Meaningful Use Info Meaningful Use Diagnoses (Choose all that apply): None applicable
[2018-02-09] MEDS: ALPRAZolam 0.5 MG Tablet PO (11:04)
[2018-02-09] MEDS: Isosorbide DN 30 MG Tablet 60 MG PO (11:04)
[2018-02-09] MEDS: Pantoprazole Sodium 20 MG Tablet PO (11:04)
[2018-02-09] MEDS: FLUoxetine 20 MG Capsule 40 MG PO (11:04)
[2018-02-09] MEDS: Carvedilol 25 MG Tablet PO (11:04)
--- NOTE | 2018-02-09 11:17 | DS.PCM_ITS ---
Discharge Date and Diagnosis Date of Admission: 02/08/18 Date of Discharge: 02/09/18 - Primary Discharge Diagnosis Active and Suspected Problems 1. Chest pain- ACS ruled out - Secondary Discharge Diagnosis Chronic Problems ESRD (end stage renal disease) on dialysis (Chronic) Decubitus ulcer, stage III (Chronic) CAD (coronary artery disease) (Chronic) Anemia, chronic disease (Chronic) Pilonidal cyst with abscess (Chronic) GABRIEL (obstructive sleep apnea) (Chronic) ESRD on dialysis (Chronic) Depression (Chronic) Anxiety (Chronic) HTN (hypertension) (Chronic) Nonischemic cardiomyopathy (Chronic) With ejection fraction 45 - 50%; with angiographically normal coronary arteries 05/2013; follows up with Dr. Magdaleno S/P repair of PDA (patent ductus arteriosus) (Chronic) At young age Diabetes mellitus type 1 (Chronic) Hyperlipidemia (Chronic) Obesity (BMI 30.0-34.9) (Chronic) Gastroparesis (Chronic) Hospital Course and Treatment Imaging Results: Diagnostic Data Chest X-Ray 02/08/18 15:10 IMPRESSION: Increased markings at the lung bases. This is suggestive bibasilar atelectasis and/or early infiltrates. Stable deformity of the left ribs. Electronically Signed: Josh Hill MD at 15:24 EDT Tel [phone], Service support , Operations: None Procedures: - - Stress echo Summary of Care Provided: Patient is a 42-year-old female admitted 02/08/2018 due to chest pain. She has a past medical history of type 2 diabetes mellitus with neuropathy, gastroparesis , hypertension, hyperlipidemia, tobacco dependence, obesity, systolic CHF, CAD status post 2013 catheterization with mild LAD disease, anxiety, depression, anemia of chronic disease, iron deficiency anemia, end-stage renal disease on hemodialysis. Chest pain occurred during dialysis prior to admission. No further chest pain since admission. Troponin negative. Patient underwent nuclear stress test which demonstrated no evidence of ischemia. LVEF 55%. ACS ruled out. Patient is stable for discharge home with further follow-up with primary care physician in 1 week. She will continue routine follow-up with nephrology, schedule dialysis. Patient seen and examined prior to discharge. Alert, oriented, no acute distress. Lungs clear, diminished. Heart rate regular rate and rhythm, no murmur. Abdomen soft, nontender, obese, colostomy intact. No edema. Neuro grossly intact. Normal affect. Vital signs stable. This patient was seen by SATNMA Mcgraw under the supervision of Dr. Charles. Discharge Diet: Low fat/ Low Cholesterol, Renal Diet Discharge Activity: Return to Normal Activity Call your doctor if you observe: Shortness of breath, Dizziness, Fainting spells , Chest pain Home Medications: Medications to take at Discharge Aspirin [Aspirin, Baby] 81 mg PO DAILY@0800 01/26/16 Calcium Acetate [Phoslo Gel Cap] 1,334 mg PO TIDCM 01/26/16 Ergocalciferol [Vitamin D] 50,000 unit PO FR 01/26/16 Insulin Aspart [Novolog Flexpen] 10 units SC TIDCM 01/26/16 Insulin Glargine,Hum.rec.anlog [Lantus] 5 unit SQ QHS 01/09/17 proMETHazine tablet [Phenergan tablet] 25 mg PO Q6H PRN PRN #10 tablet 03/06/17 Lisinopril 20 mg PO DAILY 03/29/17 Sodium Bicarbonate 650 mg PO TUTHSA 03/29/17 Carvedilol [Coreg (Beta Chang)] 25 mg PO BID 06/17/17 Fluoxetine HCl 40 mg PO DAILY 09/02/17 ALPRAZolam [Xanax] 0.5 mg PO DAILY 11/21/17 Ondansetron [Zofran Odt] 4 mg PO Q8H PRN PRN #10 tablet 01/27/18 Atorvastatin Calcium 20 mg PO QHS 02/08/18 Dicyclomine HCl [Bentyl] 20 mg PO 4X/DAY PRN PRN 02/08/18 Isosorbide DN [Isordil] 60 mg PO DAILY 02/08/18 Naproxen 500 mg PO BID PRN PRN 02/08/18 Omeprazole Magnesium [Prilosec Otc] 20 mg PO DAILY 02/08/18 Primary Care Physician: Christopher Foy MD [Primary Care Provider] - Please follow up with your Primary Care Physician in: 1 Week Disposition: Home Minutes spent on discharge:: 35 Patient Condition:: Stable Medical Necessity - Tobacco Use Smoking Status: Light Smoker (<10/day) Tobacco Use: Cigarettes Meaningful Use Info Meaningful Use Diagnoses (Choose all that apply): None applicable
== END 2018-02-09 11:30 | disposition home or self-care (01) ==
LOC: ED 15:58 → PCU 17:41
PROVIDERS: Admitting Provider Internal Medicine; Emergency Provider Emergency Medicine; Family Provider Family Medicine; PCP Family Medicine; Visit Provider Family Medicine
DX: R07.89 Other chest pain (principal); I25.10 Atherosclerotic heart disease of native coronary artery without angina pectoris; G47.33 Obstructive sleep apnea (adult) (pediatric); E10.22 Type 1 diabetes mellitus with diabetic chronic kidney disease; E10.40 Type 1 diabetes mellitus with diabetic neuropathy, unspecified; E10.43 Type 1 diabetes mellitus with diabetic autonomic (poly)neuropathy; I13.2 Hypertensive heart and chronic kidney disease with heart failure and with stage 5 chronic kidney disease, or end stage renal disease; K31.84 Gastroparesis; N18.6 End stage renal disease; I50.22 Chronic systolic (congestive) heart failure; K21.9 Gastro-esophageal reflux disease without esophagitis; E66.9 Obesity, unspecified; Z68.31 Body mass index [BMI] 31.0-31.9, adult; D50.9 Iron deficiency anemia, unspecified; E78.5 Hyperlipidemia, unspecified; L89.93 Pressure ulcer of unspecified site, stage 3; E10.622 Type 1 diabetes mellitus with other skin ulcer; F17.210 Nicotine dependence, cigarettes, uncomplicated; D63.1 Anemia in chronic kidney disease; Z95.5 Presence of coronary angioplasty implant and graft; Z99.2 Dependence on renal dialysis; Z71.3 Dietary counseling and surveillance; Z79.899 Other long term (current) drug therapy; Z79.4 Long term (current) use of insulin; Z79.82 Long term (current) use of aspirin
CPT/HCPCS: 36415; 71045; 80048; 82962; 84484; 85025; 85610; 85652; 85730; 93005; 93017; 93350; 96372; 96374; 96375; 96376; 99218; 99285; Q9957; A4216; C8928; G0378; J2405

== ENCOUNTER 2018-02-24 15:02 | Inpatient (IN) | payer MEDICARE, MEDICAID, SELFPAY ==
[2018-02-24] VITALS (9 sets, daily range): BP systolic 134–156; BP diastolic 61–76; PULSE 63–74; RESP 15–18; TEMP 36.5–36.7; O2SAT 95–98; BMI 30.7; BMI 31.1
--- NOTE | 2018-02-24 15:13 | CT_ITS ---
STUDY: CT BRAIN WITHOUT CONTRAST REASON FOR EXAM: Female, 42 years old. Headache. Photophobia. History of diabetes and hypertension. RADIATION DOSAGE (If Supplied By Facility): CTDIvol = ( 44.99 ) mGy, DLP = ( 745.49 ) mGycm TECHNIQUE: Transaxial CT imaging of the brain was performed without administration of intravenous contrast material. Coronal and sagittal reconstructions were performed. Individualized dose optimization techniques were used for this CT. COMPARISON: 06/08/2017. FINDINGS: Normal soft tissue structures. Normal calvarium. Normal size ventricles and extra-axial spaces for the patient's age. Normal white matter tracts of the cerebral hemispheres. Normal basal ganglia and thalami. Normal brainstem. Normal cerebellum. There is no intracranial hemorrhage. There are no findings of an acute ischemic infarction. Normal visualized paranasal sinuses. CT/Brain/Head without Contrast IMPRESSION: Normal unenhanced CT scan of the brain and unchanged since 06/08/2017. Electronically Signed: Woodrow Sun MD at 15:51 EDT , Service support ,
--- NOTE | 2018-02-24 15:13 | EKG12_ITS ---
Test Reason : CHEST PRESSURE Blood Pressure : / mmHG Vent. Rate : 070 BPM Atrial Rate : 070 BPM P-R Int : 142 ms QRS Dur : 090 ms QT Int : 446 ms P-R-T Axes : 035 063 248 degrees QTc Int : 481 ms Normal sinus rhythm T wave abnormality, consider inferior ischemia T wave abnormality, consider anterolateral ischemia Prolonged QT Abnormal ECG Confirmed by CHEPE BEASLEY, KAITLYNN ([id number]), international editorial producer SHANIA SOLITARIO ([id number]) on 02/26/2018 1:16:37 PM Referred By: RAJENDRA/KISHAN Confirmed By:KAITLYNN MO MD
--- NOTE | 2018-02-24 15:27 | RAD_ITS ---
STUDY: X-RAY CHEST REASON FOR EXAM: Female, 42 years old. Chest pain TECHNIQUE: Frontal and lateral views of the chest were obtained. COMPARISON: February 08, 2018 FINDINGS: The lungs are adequately aerated. There are no focal airspace opacities. There is no demonstrated pleural abnormality. The cardiac silhouette is normal in size. The mediastinum and hilar regions are unremarkable. Normal visualized pulmonary arteries. Normal visualized aortic arch and descending thoracic aorta. There are diffuse degenerative changes of the visualized spine. There is partial fusion of the left third and fourth ribs, likely a congenital defect. There is no demonstrated abnormality of the visualized upper abdomen. RAD/Chest PA and Lateral IMPRESSION: No acute cardiopulmonary abnormalities. Electronically Signed: Anila Le MD at 16:18 EDT Tel Direct: [phone], Service support ,
[2018-02-24 15:30] LABS: Absolute Lymphocyte Count 1.09 X10^3/ul (0.83-4.51); Absolute Neutrophil Count 3.9 X10^3/uL (2.0-7.7); Basophil# 0.01 X10^3/uL; Basophil% 0.2 % (0-1); Eosinophil# 0.28 X10^3/uL; Hematocrit 38.5 % (37-47); Hemoglobin 12.1 g/dl (12.0-15.0); Lymphocyte # 1.09 X10^3/ul (4.0); Lymphocyte % 19.4 % (19-41); Mean Corp Hgb Conc 31.4 g/gl (32-36); Mean Corpuscular Hgb 31.6 pg (27.0-32.0); Mean Corpuscular Volume 100.5 fL (81-99); Mean Platelet Vol. 8.6 fl (6.2-12.0); Monocyte# 0.31 X10^3/uL; Monocyte% 5.5 % (0-10); Neutrophil # 3.93 X10^3/uL (2.7-7.7); Neutrophil % 69.7 % (47-70); Platelet Count 114 K/mm3 (150-450); RBC Distribution Width CV 16.6 % (11.6-14.6); RBC Distribution Width SD 60.2 fl (35.1-43.9); Red Blood Count 3.83 M/mm3 (4.2-5.4); White Blood Count 5.6 K/mm3 (4.4-11.0)
--- NOTE | 2018-02-24 15:32 | ED.VISSUMM ---
- ER Visit Summary Date of Service: 02/24/18 Chief Complaint: Headache and chest pain History of Present Illness: The patient is a 42 F who states that she had a generalized headache this morning that persisted throughout dialysis. She reported nausea and light sensitivity. She develops chest pressure during dialysis, similar to chest pain that prompted her recent admission and stress test. She was given isosorbide on discharge at that time and she states her symptoms were controlled until today. Patient was admitted February 08. On the she had a normal stress echo. Patient does have known history of coronary artery disease, diabetes, hypertension, high cholesterol, end-stage renal disease on dialysis, and nonischemic cardiomyopathy. Physical Examination: Vital signs are unremarkable. Patient's lying in bed no acute distress. Head neck examination is unremarkable. Heart is regular rate and rhythm. Lung sounds are clear. Abdomen is soft and nontender. Lower external examination was no calf tenderness. Neuro exam is nonfocal. Test Results: EKG on arrival reveals sinus rhythm at 70 bpm with anterior lateral and inferior T-wave inversions. Patient had similar T inversions on admission on February 08, but was improved on the repeat study February 09. CBC significant only for platelet count of 114,000. Chemistry studies are significant for potassium of 3.3 and a creatinine of 3.02. Her glucose is 312. Troponin is less than 0.015. Two-view chest x-ray is unremarkable. CT the head is unremarkable. Emergency Department Course and Treatment: Patient received morphine and Zofran here for chest pain and headache. She was given 40 mEq of potassium chloride. Due to continued headache she is given small doses of Toradol, Compazine, and Benadryl. I spoke with Dr. Green, on-call for Dr. Magdaleno. At this time it is unclear whether the EKG changes are related to her low potassium. Her potassium will be corrected and she will be observed in the hospital. She may or may not require heart cath. Treatment Plan: [] Disposition: Admit Impression: 1. Chest pain 2. EKG changes 3. Cephalgia 4. Hypokalemia This note was generated with [facility] dictation software. It may contain incorrect words, spelling, and punctuation that were not noted in review of the chart prior to signing ED Disposition - Plan for ED Patient: Chief Complaint: Chest Pain Referrals: Christopher Foy MD [Primary Care Provider] -
[2018-02-24 15:39] LABS: POSITIVE COUNT NO; POSITIVE DIFFERENTIAL NO; POSITIVE MORPHOLOGY NO
[2018-02-24] MEDS: Morphine 4 MG/ML Syringe IV (15:42)
[2018-02-24] MEDS: Ondansetron 4 MG/2 ML Vial IV ×2 (15:42→22:04)
[2018-02-24 15:45] LABS: Anion Gap 6 (5-15); BUN 13 mg/dL (7-18); BUN/Creat Ratio 4.3 RATIO (10-20); Calcium,Total 7.6 mg/dL (8.5-10.1); Chloride 94 mmol/L (98-107); Creatinine, Serum 3.02 mg/dL (0.55-1.02); EST Glomerular Filtration Rate 18 mL/min (>60); Est Glom Filt Rate - Afr Amer 22 mL/min (>60); Estimated Creatinine Clearance 22.25 ml/min; Glucose 312 mg/dL (74-106); Potassium 3.3 mmol/L (3.5-5.1); Sodium Level 135 mmol/L (136-145)
[2018-02-24] MEDS: Ketorolac 15 MG/ML Vial IV (17:27)
[2018-02-24] MEDS: DiphenhydrAMINE 50 MG/ML Syringe 12.5 MG IV (17:27)
[2018-02-24] MEDS: proCHLORPERazine 10 MG/2 ML Vial 5 MG IV (17:27)
--- NOTE | 2018-02-24 17:39 | PCM.HP.STD ---
Problem List (1) Chest pain Status: Acute (2) Migraine Status: Acute (3) Metabolic encephalopathy Status: Acute History of Present Illness Date of Admission: 02/24/18 Chief Complaint: chest pain. confusion The patient is a 42 year old F who is in normal state of health up until today where patient started having a headache. Patient is also having confusion as well. Patient was in dialysis and then about 45 minutes left remaining, experienced midsternal chest pain. Chest pain did not radiate. Patient did feel nauseated with this but did not vomit. Dialysis was stopped early with roughly 45 minutes remaining patient stated the chest pain lasted for about 30 minutes and then resolved. And patient was brought to the emergency room. In the emergency room, patient had an EKG that showed some ST depressions in the lateral leads as well her leads. Dr. Green, cardiology, was contacted will further evaluate the patient determined patient requires a heart catheterization. Patient did have chest pain last month and had underwent a stress test on the which was negative. Patient was started on isosorbide at that time. Patient said that it did seem to help her chest pain. Patient also had some confusion today. Patient is being brought from the dialysis center patient was not able to figure out how to take off her seatbelt. Patient states she never felt like that before. Patient had a head CT in the emergency room that was unremarkable. [] Past Medical History Past Medical History (Chronic Problems): Chronic Problems ESRD (end stage renal disease) on dialysis (Chronic) Decubitus ulcer, stage III (Chronic) CAD (coronary artery disease) (Chronic) Anemia, chronic disease (Chronic) Pilonidal cyst with abscess (Chronic) GABRIEL (obstructive sleep apnea) (Chronic) ESRD on dialysis (Chronic) Depression (Chronic) Anxiety (Chronic) HTN (hypertension) (Chronic) Nonischemic cardiomyopathy (Chronic) With ejection fraction 45 - 50%; with angiographically normal coronary arteries 05/2013; follows up with Dr. Magdaleno S/P repair of PDA (patent ductus arteriosus) (Chronic) At young age Diabetes mellitus type 1 (Chronic) Hyperlipidemia (Chronic) Obesity (BMI 30.0-34.9) (Chronic) Gastroparesis (Chronic) Allergies latex Allergy (Verified 02/08/18 14:54) Rash levofloxacin [From Levaquin] Adverse Reaction (Verified 07/19/18 14:54) PT CAN'T REMEMBER PT CAN'T REMEMBER metoclopramide HCl [From Reglan] Adverse Reaction (Verified 02/08/18 14:54) Nausea NSAIDS (Non-Steroidal Anti-Inflamma Adverse Reaction (Verified 02/08/18 14:54) kidney function oxycodone HCl [From Percocet] Adverse Reaction (Verified 02/08/18 14:54) HALLUCINATIONS Home Medications: Ambulatory Orders Medication Instructions Recorded Aspirin [Aspirin, Baby] 81 mg PO DAILY@0800 01/26/16 Calcium Acetate [Phoslo Gel Cap] 1,334 mg PO TIDCM 01/26/16 Ergocalciferol [Vitamin D] 50,000 unit PO FR 01/26/16 Insulin Aspart [Novolog Flexpen] 10 units SC TIDCM 01/26/16 Insulin Glargine,Hum.rec.anlog 5 unit SQ QHS 01/09/17 [Lantus] proMETHazine tablet [Phenergan 25 mg PO Q6H PRN PRN #10 tablet 03/06/17 tablet] Lisinopril 20 mg PO DAILY 03/29/17 Sodium Bicarbonate 650 mg PO TUTHSA 03/29/17 Carvedilol [Coreg (Beta Chang)] 25 mg PO BID 06/17/17 Fluoxetine HCl 40 mg PO DAILY 09/02/17 ALPRAZolam [Xanax] 0.5 mg PO DAILY 11/21/17 Ondansetron [Zofran Odt] 4 mg PO Q8H PRN PRN #10 tablet 01/27/18 Atorvastatin Calcium 20 mg PO QHS 02/08/18 Dicyclomine HCl [Bentyl] 20 mg PO 4X/DAY PRN PRN 02/08/18 Isosorbide DN [Isordil] 60 mg PO DAILY 02/08/18 Naproxen 500 mg PO BID PRN PRN 02/08/18 Omeprazole Magnesium [Prilosec Otc] 20 mg PO DAILY 02/08/18 Psychiatric History: No pertinent psych hx Smoking Status: Unknown if ever smoked Tobacco Use: Non-smoker Alcohol: None Drugs: None - *Family History Maternal History Items: Cancer, COPD, Diabetes, Hypertension, Renal Disease, Stroke Paternal History Items: Diabetes Sibling History Items: Cancer, Diabetes Review of Systems Constitutional: Reports: Anorexia, Chills. Denies: Fever Eyes: Denies: Blurred vision, Double vision HEENT: Denies: Head Aches, Sinus Congestion, Sinus Drainage Cardiovascular: Reports: Chest Pain. Denies: Edema, Light Headedness Respiratory: Denies: Cough, Shortness of Breath, Shortness of breath at rest, Sputum production Gastrointestinal: Reports: Nausea. Denies: Abdominal Pain, Vomiting Genitourinary: Denies: Dysuria Musculoskeletal: Denies: Joint Pain, Joint Tenderness Skin: Denies: Rash, Wounds Neurological: Reports: Confusion, Headaches. Denies: Balance problems, Blurred vision, Double vision, Change in Speech Psychiatric: Denies: Anxiety, Depression Endocrine: Denies: Change in Body Habitus, Heat/ Cold Intolerance Hematologic/ Lymphatic: Reports: Easy Bruising - 12 bruising on her calf for unknown etiology.. Denies: Easy Bleeding, Hx of blood clot Comment: All review of systems are negative except as mentioned in the history of present illness and the other review of systems. VTE Information - Inpt Only VTE Present on Admission: No VTE Mechan Device Prophylaxis: None VTE Pharm Prophylaxis ordered?: Yes Patient Problems: Active and Suspected Problems Chest pain (Acute) Migraine (Acute) Metabolic encephalopathy (Acute) - Physical Exam General: Alert, Cooperative, No apparent distress HEENT: Atraumatic, PERRLA, EOMI Oral: Moist Mucosa, No Gingival or Mucosal Lesions/ Ulcerations Neck: No Nodes, Thyroid Normal Size and Texture Lungs: Clear to auscultation, Normal air movement, No rhonchi, No wheeze Cardiovascular: Regular rate, Regular Rhythm, Normal S1, Normal S2, No murmurs Abdomen: Bowel Sounds Present, Soft, Non Tender, Non-Distended, No Hepato-splenomegaly, Obese Extremities: No edema, No Calf Tenderness Skin: No rashes, No breakdown Musculoskeletal: No Tenderness to Palpation of Joints or Extremities, No Muscle Wasting Neurological: Neuro grossly intact, Sensory exam intact to light touch and pain, Coordination normal Psych/Mental Status: Flat Affect Vital Signs Temp Pulse Resp BP Pulse Ox 36.7 C 66 15 152/70 H 98 02/24/18 15:03 02/24/18 17:33 02/24/18 17:33 02/24/18 17:33 02/24/18 17:33 Oxygen Delivery Method Room Air Weight: 86.183 kg Body Mass Index (BMI) 30.7 Finger Stick Blood Glucose 118 Laboratory Tests Past 24 Hrs 02/24/18 02/24/18 15:20 15:20 WBC 5.6 RBC 3.83 L Hgb 12.1 Hct 38.5 MCV 100.5 H MCH 31.6 MCHC 31.4 L RDW 16.6 H RDW Differential 60.2 H Plt Count 114 L MPV 8.6 Immature Gran % (Auto) 0.200 Neut % (Auto) 69.7 Lymph % (Auto) 19.4 Whitman % (Auto) 5.5 Eos % (Auto) 5.0 Baso % (Auto) 0.2 Absolute Neuts (auto) 3.9 Absolute Lymphs (auto) 1.09 Total Counted Not Reportable Sodium 135 L Potassium 3.3 L Chloride 94 L Carbon Dioxide 35.0 H Anion Gap 6 BUN 13 Creatinine 3.02 H Estim Creat Clear Calc 22.25 Est GFR (MDRD) Af Amer 22 L Est GFR (MDRD) Non-Af 18 L BUN/Creatinine Ratio 4.3 L Glucose 312 H Calcium 7.6 L Troponin I < 0.015 EKG reviewed and showed normal sinus rhythm. ST depressions in inferior as well as lateral leads. Clinical Impression(s) from Imaging Studies Brain CT 02/24/18 15:13 IMPRESSION: Normal unenhanced CT scan of the brain and unchanged since 06/08/2017. Electronically Signed: Woodrow Sun MD at 15:51 EDT , Service support , Chest X-Ray 02/24/18 15:27 IMPRESSION: No acute cardiopulmonary abnormalities. Electronically Signed: Anila Le MD at 16:18 EDT Tel Direct: [phone], Service support , Assessment/Plan All Active Problems Chest pain (Acute) Migraine (Acute) Metabolic encephalopathy (Acute) Chest pain (Acute) Tooth abscess (Resolved) Intractable nausea and vomiting (Resolved) Pneumonia (Resolved) Pulmonary edema (Resolved) Hyperkalemia (Resolved) Atypical chest pain (Resolved) Acute hypoxic respiratory failure (Resolved) Pulmonary edema (Resolved) Clostridium difficile enterocolitis (Resolved) Necrotizing myositis (Resolved) Dysmenorrhea (Resolved) Hx of necrotizing fascIItis (Resolved) Iron deficiency anemia due to chronic blood loss (Resolved) Systolic congestive heart failure (Resolved) 1. Unstable angina Medical management for now. Patient is no longer having any chest pain Cardiology will be on consultation as patient already went a stress test on February 09 which was negative Cycle troponins Patient may require a left heart catheterization. Patient aware that she may not be able to have a left heart catheterization, if that is what is determined until the 2. Migraine Patient receiving a cocktail medications currently in the emergency room Hold off in any additional agents at this time unless it recurs The patient has recurrence of her migraine with avoid triptan's in the light of the chest pain/unstable angina workup 3. Metabolic encephalopathy Patient had some self-reported confusion of not being able to operate a seatbelt. Do not appreciate any focal deficits. Feels prior combination patient's migraine her chest symptoms and possible also some metabolic derangements as well Head CT was negative If patient has continued recurrence and may change and can do additional workup later point but not. 4. End-stage renal disease Patient completed dialysis with exception of the last 45 minutes today Depending on patient's length states she does require heart catheterization will consult nephrology. I would hold off on constant right now it is unclear how long the patient will require further hospitalization at this point time as patient's next dialysis is due on the . The patient does require left heart catheterization which would be to 6, will consult nephrology at that point time. 5. Diabetes mellitus type 2 Continue with home insulin regimen plus sliding scale 6. DVT prophylaxis with subcu heparin Code Visit Inpatient E&M: 93661 Init Hosp L3
--- NOTE | 2018-02-24 17:43 | HP.PCM_ITS ---
Problem List (1) Chest pain Status: Acute (2) Migraine Status: Acute (3) Metabolic encephalopathy Status: Acute History of Present Illness Date of Admission: 02/24/18 Chief Complaint: chest pain. confusion The patient is a 42 year old F who is in normal state of health up until today where patient started having a headache. Patient is also having confusion as well. Patient was in dialysis and then about 45 minutes left remaining, experienced midsternal chest pain. Chest pain did not radiate. Patient did feel nauseated with this but did not vomit. Dialysis was stopped early with roughly 45 minutes remaining patient stated the chest pain lasted for about 30 minutes and then resolved. And patient was brought to the emergency room. In the emergency room, patient had an EKG that showed some ST depressions in the lateral leads as well her leads. Dr. Green, cardiology, was contacted will further evaluate the patient determined patient requires a heart catheterization. Patient did have chest pain last month and had underwent a stress test on the which was negative. Patient was started on isosorbide at that time. Patient said that it did seem to help her chest pain. Patient also had some confusion today. Patient is being brought from the dialysis center patient was not able to figure out how to take off her seatbelt. Patient states she never felt like that before. Patient had a head CT in the emergency room that was unremarkable. [] Past Medical History Past Medical History (Chronic Problems): Chronic Problems ESRD (end stage renal disease) on dialysis (Chronic) Decubitus ulcer, stage III (Chronic) CAD (coronary artery disease) (Chronic) Anemia, chronic disease (Chronic) Pilonidal cyst with abscess (Chronic) GABRIEL (obstructive sleep apnea) (Chronic) ESRD on dialysis (Chronic) Depression (Chronic) Anxiety (Chronic) HTN (hypertension) (Chronic) Nonischemic cardiomyopathy (Chronic) With ejection fraction 45 - 50%; with angiographically normal coronary arteries 05/2013; follows up with Dr. Magdaleno S/P repair of PDA (patent ductus arteriosus) (Chronic) At young age Diabetes mellitus type 1 (Chronic) Hyperlipidemia (Chronic) Obesity (BMI 30.0-34.9) (Chronic) Gastroparesis (Chronic) Allergies latex Allergy (Verified 02/08/18 14:54) Rash levofloxacin [From Levaquin] Adverse Reaction (Verified 07/19/18 14:54) PT CAN'T REMEMBER PT CAN'T REMEMBER metoclopramide HCl [From Reglan] Adverse Reaction (Verified 02/08/18 14:54) Nausea NSAIDS (Non-Steroidal Anti-Inflamma Adverse Reaction (Verified 02/08/18 14:54) kidney function oxycodone HCl [From Percocet] Adverse Reaction (Verified 02/08/18 14:54) HALLUCINATIONS Home Medications: Ambulatory Orders Medication Instructions Recorded Aspirin [Aspirin, Baby] 81 mg PO DAILY@0800 01/26/16 Calcium Acetate [Phoslo Gel Cap] 1,334 mg PO TIDCM 01/26/16 Ergocalciferol [Vitamin D] 50,000 unit PO FR 01/26/16 Insulin Aspart [Novolog Flexpen] 10 units SC TIDCM 01/26/16 Insulin Glargine,Hum.rec.anlog 5 unit SQ QHS 01/09/17 [Lantus] proMETHazine tablet [Phenergan 25 mg PO Q6H PRN PRN #10 tablet 03/06/17 tablet] Lisinopril 20 mg PO DAILY 03/29/17 Sodium Bicarbonate 650 mg PO TUTHSA 03/29/17 Carvedilol [Coreg (Beta Chang)] 25 mg PO BID 06/17/17 Fluoxetine HCl 40 mg PO DAILY 09/02/17 ALPRAZolam [Xanax] 0.5 mg PO DAILY 11/21/17 Ondansetron [Zofran Odt] 4 mg PO Q8H PRN PRN #10 tablet 01/27/18 Atorvastatin Calcium 20 mg PO QHS 02/08/18 Dicyclomine HCl [Bentyl] 20 mg PO 4X/DAY PRN PRN 02/08/18 Isosorbide DN [Isordil] 60 mg PO DAILY 02/08/18 Naproxen 500 mg PO BID PRN PRN 02/08/18 Omeprazole Magnesium [Prilosec Otc] 20 mg PO DAILY 02/08/18 Psychiatric History: No pertinent psych hx Smoking Status: Unknown if ever smoked Tobacco Use: Non-smoker Alcohol: None Drugs: None - *Family History Maternal History Items: Cancer, COPD, Diabetes, Hypertension, Renal Disease, Stroke Paternal History Items: Diabetes Sibling History Items: Cancer, Diabetes Review of Systems Constitutional: Reports: Anorexia, Chills. Denies: Fever Eyes: Denies: Blurred vision, Double vision HEENT: Denies: Head Aches, Sinus Congestion, Sinus Drainage Cardiovascular: Reports: Chest Pain. Denies: Edema, Light Headedness Respiratory: Denies: Cough, Shortness of Breath, Shortness of breath at rest, Sputum production Gastrointestinal: Reports: Nausea. Denies: Abdominal Pain, Vomiting Genitourinary: Denies: Dysuria Musculoskeletal: Denies: Joint Pain, Joint Tenderness Skin: Denies: Rash, Wounds Neurological: Reports: Confusion, Headaches. Denies: Balance problems, Blurred vision, Double vision, Change in Speech Psychiatric: Denies: Anxiety, Depression Endocrine: Denies: Change in Body Habitus, Heat/ Cold Intolerance Hematologic/ Lymphatic: Reports: Easy Bruising - 12 bruising on her calf for unknown etiology.. Denies: Easy Bleeding, Hx of blood clot Comment: All review of systems are negative except as mentioned in the history of present illness and the other review of systems. VTE Information - Inpt Only VTE Present on Admission: No VTE Mechan Device Prophylaxis: None VTE Pharm Prophylaxis ordered?: Yes Patient Problems: Active and Suspected Problems Chest pain (Acute) Migraine (Acute) Metabolic encephalopathy (Acute) - Physical Exam General: Alert, Cooperative, No apparent distress HEENT: Atraumatic, PERRLA, EOMI Oral: Moist Mucosa, No Gingival or Mucosal Lesions/ Ulcerations Neck: No Nodes, Thyroid Normal Size and Texture Lungs: Clear to auscultation, Normal air movement, No rhonchi, No wheeze Cardiovascular: Regular rate, Regular Rhythm, Normal S1, Normal S2, No murmurs Abdomen: Bowel Sounds Present, Soft, Non Tender, Non-Distended, No Hepato- splenomegaly, Obese Extremities: No edema, No Calf Tenderness Skin: No rashes, No breakdown Musculoskeletal: No Tenderness to Palpation of Joints or Extremities, No Muscle Wasting Neurological: Neuro grossly intact, Sensory exam intact to light touch and pain , Coordination normal Psych/Mental Status: Flat Affect Vital Signs Temp Pulse Resp BP Pulse Ox 36.7 C 66 15 152/70 H 98 02/24/18 15:03 02/24/18 17:33 02/24/18 17:33 02/24/18 17:33 02/24/18 17:33 Oxygen Delivery Method Room Air Weight: 86.183 kg Body Mass Index (BMI) 30.7 Finger Stick Blood Glucose 118 Laboratory Tests Past 24 Hrs 02/24/18 02/24/18 15:20 15:20 WBC 5.6 RBC 3.83 L Hgb 12.1 Hct 38.5 MCV 100.5 H MCH 31.6 MCHC 31.4 L RDW 16.6 H RDW Differential 60.2 H Plt Count 114 L MPV 8.6 Immature Gran % (Auto) 0.200 Neut % (Auto) 69.7 Lymph % (Auto) 19.4 [place] % (Auto) 5.5 Eos % (Auto) 5.0 Baso % (Auto) 0.2 Absolute Neuts (auto) 3.9 Absolute Lymphs (auto) 1.09 Total Counted Not Reportable Sodium 135 L Potassium 3.3 L Chloride 94 L Carbon Dioxide 35.0 H Anion Gap 6 BUN 13 Creatinine 3.02 H Estim Creat Clear Calc 22.25 Est GFR (MDRD) Af Amer 22 L Est GFR (MDRD) Non-Af 18 L BUN/Creatinine Ratio 4.3 L Glucose 312 H Calcium 7.6 L Troponin I < 0.015 EKG reviewed and showed normal sinus rhythm. ST depressions in inferior as well as lateral leads. Clinical Impression(s) from Imaging Studies Brain CT 02/24/18 15:13 IMPRESSION: Normal unenhanced CT scan of the brain and unchanged since 06/08/2017. Electronically Signed: Woodrow Sun MD at 15:51 EDT , Service support , Chest X-Ray 02/24/18 15:27 IMPRESSION: No acute cardiopulmonary abnormalities. Electronically Signed: Anila Le MD at 16:18 EDT Tel Direct: [phone], Service support , Assessment/Plan All Active Problems Chest pain (Acute) Migraine (Acute) Metabolic encephalopathy (Acute) Chest pain (Acute) Tooth abscess (Resolved) Intractable nausea and vomiting (Resolved) Pneumonia (Resolved) Pulmonary edema (Resolved) Hyperkalemia (Resolved) Atypical chest pain (Resolved) Acute hypoxic respiratory failure (Resolved) Pulmonary edema (Resolved) Clostridium difficile enterocolitis (Resolved) Necrotizing myositis (Resolved) Dysmenorrhea (Resolved) Hx of necrotizing fascIItis (Resolved) Iron deficiency anemia due to chronic blood loss (Resolved) Systolic congestive heart failure (Resolved) 1. Unstable angina * Medical management for now. Patient is no longer having any chest pain * Cardiology will be on consultation as patient already went a stress test on February 09 which was negative * Cycle troponins * Patient may require a left heart catheterization. Patient aware that she may not be able to have a left heart catheterization, if that is what is determined until the 2. Migraine * Patient receiving a cocktail medications currently in the emergency room * Hold off in any additional agents at this time unless it recurs * The patient has recurrence of her migraine with avoid triptan's in the light of the chest pain/unstable angina workup 3. Metabolic encephalopathy * Patient had some self-reported confusion of not being able to operate a seatbelt. Do not appreciate any focal deficits. Feels prior combination patient's migraine her chest symptoms and possible also some metabolic derangements as well * Head CT was negative * If patient has continued recurrence and may change and can do additional workup later point but not. 4. End-stage renal disease * Patient completed dialysis with exception of the last 45 minutes today * Depending on patient's length states she does require heart catheterization will consult nephrology. I would hold off on constant right now it is unclear how long the patient will require further hospitalization at this point time as patient's next dialysis is due on the . * The patient does require left heart catheterization which would be to 6, will consult nephrology at that point time. 5. Diabetes mellitus type 2 * Continue with home insulin regimen plus sliding scale 6. DVT prophylaxis with subcu heparin Code Visit Inpatient E&M: 17817 Init Hosp L3
[2018-02-24 18:41] LABS: Bedside Glucose 286 mg/dL (70-110)
[2018-02-24] MEDS: Acetaminophen 325 MG Tablet 650 MG PO (22:02)
[2018-02-24] MEDS: Carvedilol 25 MG Tablet PO (22:02)
[2018-02-24] MEDS: Atorvastatin Calcium 20 MG Tablet PO (22:03)
[2018-02-24] MEDS: Heparin Injection (Vial) 5,000 UNIT/ML VIAL 5000 UNIT SC (22:04)
[2018-02-24] MEDS: 0.9% NaCl Peripheral Flush Adult/Peds IV (22:04)
[2018-02-24 22:15] LABS: Bedside Glucose 182 mg/dL (70-110)
[2018-02-25] VITALS (11 sets, daily range): BP systolic 138–147; BP diastolic 74–79; PULSE 72–92; RESP 15–18; TEMP 36.5–36.7; O2SAT 94–97
[2018-02-25] MEDS: oxyCODONE 5 MG Tablet PO (01:07)
[2018-02-25] MEDS: Acetaminophen 325 MG Tablet 650 MG PO ×2 (04:30→14:51)
[2018-02-25] MEDS: proMETHazine 25 MG Tablet PO ×2 (04:34→18:50)
[2018-02-25] MEDS: Heparin Injection (Vial) 5,000 UNIT/ML VIAL 5000 UNIT SC ×3 (05:00→22:04)
[2018-02-25 06:33] LABS: ALB/GLOB Ratio 0.7 RATIO (0.9-2.4); AST(SGOT) 19 U/L (15-37); Alanine Aminotransfer ALT/SGPT 23 U/L (13-56); Alkaline Phosphatase 93 U/L (45-117); Anion Gap 10 (5-15); BUN 23 mg/dL (7-18); Calcium,Total 8.4 mg/dL (8.5-10.1); Chloride 97 mmol/L (98-107); Cholesterol 120 mg/dL (200); Creatinine, Serum 4.58 mg/dL (0.55-1.02); EST Glomerular Filtration Rate 11 mL/min (>60); Est Glom Filt Rate - Afr Amer 13 mL/min (>60); Estimated Creatinine Clearance 14.67 ml/min; Globulin 4.4 g/dL (2.2-4.2); Glucose 208 mg/dL (74-106); High Density Lipoprotein 38 mg/dL; Potassium 4.7 mmol/L (3.5-5.1); Protein, Total 7.4 g/dL (6.4-8.2); Sodium Level 141 mmol/L (136-145); Triglycerides 131 mg/dL; Very Low Density Lipoprotein 26 mg/dL (5-40)
[2018-02-25 06:45] LABS: Bedside Glucose 177 mg/dL (70-110)
[2018-02-25] MEDS: Insulin Lispro 100 UNIT/ML INSULN.PEN SQ ×2 (08:29→17:07)
[2018-02-25] MEDS: Insulin Lispro 100 UNIT/ML INSULN.PEN 10 UNIT SC ×3 (08:30→17:07)
[2018-02-25] MEDS: Isosorbide Mononitrate 60 MG Tablet PO (08:31)
[2018-02-25] MEDS: Calcium Acetate 667 MG Capsule 1334 MG PO ×3 (08:31→17:08)
[2018-02-25] MEDS: Aspirin 81 MG TAB.CHEW PO (08:31)
[2018-02-25] MEDS: Carvedilol 25 MG Tablet PO ×2 (08:31→22:03)
[2018-02-25] MEDS: FLUoxetine 20 MG Capsule 40 MG PO (08:32)
[2018-02-25] MEDS: Pantoprazole Sodium 20 MG Tablet PO (08:32)
[2018-02-25] MEDS: Lisinopril 20 MG Tablet PO (08:32)
[2018-02-25] MEDS: 0.9% NaCl Peripheral Flush Adult/Peds IV ×2 (11:25→22:11)
[2018-02-25 11:35] LABS: Bedside Glucose 126 mg/dL (70-110)
--- NOTE | 2018-02-25 12:20 | PCM.PN.HOSP ---
Patient Problems: Active and Suspected Problems Chest pain (Acute) Migraine (Acute) Metabolic encephalopathy (Acute) Subjective: Chest pain did get better but only to come back again patient also with headache again this morning but did sleep until about 11 PM last night with a cocktail of Toradol and Benadryl she received in the emergency room yesterday. Vitals/I&O's: Vital Signs Temp Pulse Resp BP Pulse Ox 36.5 C L 81 16 147/79 H 94 02/25/18 08:15 02/25/18 11:39 02/25/18 08:15 02/25/18 08:15 02/25/18 08:15 Oxygen Flow Rate (L/min) 2 Oxygen Delivery Method Room Air Weight: 87.7 kg Body Mass Index (BMI) 31.1 Intake and Output for Last 24 Hours 02/23/18 02/24/18 02/25/18 23:59 23:59 23:59 Intake Total 240 / 240 360 / 360 Balance 240 / 240 360 / 360 General: Alert, Cooperative, No apparent distress HEENT: Atraumatic, Normocephalic Oral: Moist Mucosa, No Gingival or Mucosal Lesions/ Ulcerations Neck: No Nodes, Thyroid Normal Size and Texture Lungs: Clear to auscultation, Normal air movement, No rhonchi, No wheeze Cardiovascular: Regular rate, Regular Rhythm, Normal S1, Normal S2 Abdomen: Bowel Sounds Present, Soft, Non Tender, Non-Distended, No Hepato-splenomegaly Extremities: No edema, No Calf Tenderness Psych/Mental Status: Appropriate, Flat Affect Laboratory Results 02/24/18 18:33: POC Glucose 286 H 02/24/18 18:38: Troponin I < 0.015 02/24/18 21:31: Troponin I < 0.015 02/24/18 21:42: POC Glucose 182 H 02/25/18 05:30: Sodium 141, Potassium 4.7, Chloride 97 L, Carbon Dioxide 34.0 H, Anion Gap 10, BUN 23 H, Creatinine 4.58 H, Estim Creat Clear Calc 14.67, Est GFR (MDRD) Af Amer 13 L, Est GFR (MDRD) Non-Af 11 L, BUN/Creatinine Ratio 5.0 L, Glucose 208 H, Calcium 8.4 L, Total Bilirubin 0.30, AST 19, ALT 23, Alkaline Phosphatase 93, Total Protein 7.4, Albumin 3.0 L, Globulin 4.4 H, Albumin/Globulin Ratio 0.7 L, Triglycerides 131, Cholesterol 120, LDL Cholesterol 56, VLDL Cholesterol 26, HDL Cholesterol 38 L 02/25/18 06:39: POC Glucose 177 H 02/25/18 11:22: POC Glucose 126 H Current Medications Acetaminophen (Tylenol) 650 mg PO Q6H PRN PRN PRN Reason: Mild Pain (1-3)/Temp > 100.7 F Last Admin: 02/25/18 04:30 Dose: 650 mg Alprazolam (Xanax) 0.5 mg PO DAILY PRN PRN Reason: ANXIETY Aspirin (Aspirin, Baby) 81 mg PO DAILY@0800 [facility] Last Admin: 02/25/18 08:31 Dose: 81 mg Atorvastatin Calcium (Lipitor) 20 mg PO QHS [facility] Last Admin: 02/24/18 22:03 Dose: 20 mg Calcium Acetate (Phoslo Gel Cap) 1,334 mg PO TIDCM [facility] Last Admin: 02/25/18 11:25 Dose: 1,334 mg Carvedilol (Coreg) 25 mg PO BID [facility] Last Admin: 02/25/18 08:31 Dose: 25 mg Dextrose (D50w Syringe) 0 gm IV X1 PRN; Protocol PRN Reason: Hypoglycemia Dicyclomine HCl (Bentyl) 20 mg PO 4X/DAY PRN PRN PRN Reason: distress Ergocalciferol (Vitamin D) 50,000 unit PO FR [facility] Fluoxetine HCl (Prozac) 40 mg PO DAILY [facility] Last Admin: 02/25/18 08:32 Dose: 40 mg Glucagon () 1 mg IM .X1 PRN PRN Reason: Hypoglycemia Heparin Sodium (Porcine) (Heparin Na) 5,000 unit SC Q8 [facility] Last Admin: 02/25/18 05:00 Dose: 5,000 units Insulin Glargine (Lantus (Bkc)) 5 units SC QHS [facility] Last Admin: 02/24/18 22:03 Dose: 5 units Insulin Human Lispro (Humalog Kwikpen (Bkc)) 0 unit SQ TIDAC [facility] PRN Reason: Protocol Last Admin: 02/25/18 11:23 Dose: Not Given Insulin Human Lispro (Humalog Kwikpen (Bkc)) 10 unit SC TIDCM [facility] Last Admin: 02/25/18 11:26 Dose: 10 units Isosorbide Mononitrate (Imdur) 60 mg PO DAILY [facility] Last Admin: 02/25/18 08:31 Dose: 60 mg Lisinopril (Zestril) 20 mg PO DAILY [facility] Last Admin: 02/25/18 08:32 Dose: 20 mg Magnesium Hydroxide (Milk Of Magnesia) 30 ml PO DAILY PRN PRN Reason: Constipation Nitroglycerin (Nitrostat) 0.4 mg SUBLINGUAL Q5M PRN PRN Reason: CHEST PAIN Nutritional Formula (Lactose Free) (Glucerna Shake) 120 ml PO TIDCM [facility] Last Admin: 02/25/18 11:19 Dose: Not Given Ondansetron HCl (Zofran Odt) 4 mg PO Q8H PRN PRN PRN Reason: NAUSEA Ondansetron HCl (Zofran) 4 mg IV Q8H PRN PRN PRN Reason: NAUSEA Last Admin: 02/24/18 22:04 Dose: 4 mg Pantoprazole Sodium (Protonix) 20 mg PO DAILY [facility] Last Admin: 02/25/18 08:32 Dose: 20 mg Promethazine HCl (Phenergan Tablet) 25 mg PO Q6H PRN PRN PRN Reason: NAUSEA Last Admin: 02/25/18 04:34 Dose: 25 mg Sodium Bicarbonate (Sodium Bicarbonate) 650 mg PO TuThSa@1000 [facility] Sodium Chloride () 5 - 30 ml IV UD PRN PRN Reason: SALINE FLUSH Last Admin: 02/25/18 11:25 Dose: 10 ml Medical Necessity - Tobacco Use Smoking Status: Current every day smoker Tobacco Use: Cigarettes Assessment/Plan All Active Problems Chest pain (Acute) Migraine (Acute) Metabolic encephalopathy (Acute) Chest pain (Acute) Tooth abscess (Resolved) Intractable nausea and vomiting (Resolved) Pneumonia (Resolved) Pulmonary edema (Resolved) Hyperkalemia (Resolved) Atypical chest pain (Resolved) Acute hypoxic respiratory failure (Resolved) Pulmonary edema (Resolved) Clostridium difficile enterocolitis (Resolved) Necrotizing myositis (Resolved) Dysmenorrhea (Resolved) Hx of necrotizing fascIItis (Resolved) Iron deficiency anemia due to chronic blood loss (Resolved) Systolic congestive heart failure (Resolved) 1. Unstable angina Medical management for now. Patient is no longer having any chest pain Cardiology will be on consultation as patient already went a stress test on February 09 which was negative negative troponins Patient may require a left heart catheterization. Patient aware that she may not be able to have a left heart catheterization, if that is what is determined until the 2. Migraine improved Patient receiving a cocktail medications currently in the emergency room Hold off in any additional agents at this time unless it recurs The patient has recurrence of her migraine with avoid triptan's in the light of the chest pain/unstable angina workup 3. Metabolic encephalopathy Patient had some self-reported confusion of not being able to operate a seatbelt. Do not appreciate any focal deficits. Feels prior combination patient's migraine her chest symptoms and possible also some metabolic derangements as well Head CT was negative If patient has continued recurrence and may change and can do additional workup later point but not. 4. End-stage renal disease Patient completed dialysis with exception of the last 45 minutes today Depending on patient's length states she does require heart catheterization will consult nephrology. I would hold off on constant right now it is unclear how long the patient will require further hospitalization at this point time as patient's next dialysis is due on the . Consult nephrology. May require earlier HD given the [facility] for 02/26 5. Diabetes mellitus type 2 fair control Continue with home insulin regimen plus sliding scale 6. DVT prophylaxis with subcu heparin Code Visit Inpatient E&M: 23989 Subs Hosp L2
--- NOTE | 2018-02-25 12:23 | PN_ITS ---
Patient Problems: Active and Suspected Problems Chest pain (Acute) Migraine (Acute) Metabolic encephalopathy (Acute) Subjective: Chest pain did get better but only to come back again patient also with headache again this morning but did sleep until about 11 PM last night with a cocktail of Toradol and Benadryl she received in the emergency room yesterday. Vitals/I&O's: Vital Signs Temp Pulse Resp BP Pulse Ox 36.5 C L 81 16 147/79 H 94 02/25/18 08:15 02/25/18 11:39 02/25/18 08:15 02/25/18 08:15 02/25/18 08:15 Oxygen Flow Rate (L/min) 2 Oxygen Delivery Method Room Air Weight: 87.7 kg Body Mass Index (BMI) 31.1 Intake and Output for Last 24 Hours 02/23/18 02/24/18 02/25/18 23:59 23:59 23:59 Intake Total 240 / 240 360 / 360 Balance 240 / 240 360 / 360 General: Alert, Cooperative, No apparent distress HEENT: Atraumatic, Normocephalic Oral: Moist Mucosa, No Gingival or Mucosal Lesions/ Ulcerations Neck: No Nodes, Thyroid Normal Size and Texture Lungs: Clear to auscultation, Normal air movement, No rhonchi, No wheeze Cardiovascular: Regular rate, Regular Rhythm, Normal S1, Normal S2 Abdomen: Bowel Sounds Present, Soft, Non Tender, Non-Distended, No Hepato- splenomegaly Extremities: No edema, No Calf Tenderness Psych/Mental Status: Appropriate, Flat Affect Laboratory Results 02/24/18 18:33: POC Glucose 286 H 02/24/18 18:38: Troponin I < 0.015 02/24/18 21:31: Troponin I < 0.015 02/24/18 21:42: POC Glucose 182 H 02/25/18 05:30: Sodium 141, Potassium 4.7, Chloride 97 L, Carbon Dioxide 34.0 H , Anion Gap 10, BUN 23 H, Creatinine 4.58 H, Estim Creat Clear Calc 14.67, Est GFR (MDRD) Af Amer 13 L, Est GFR (MDRD) Non-Af 11 L, BUN/Creatinine Ratio 5.0 L , Glucose 208 H, Calcium 8.4 L, Total Bilirubin 0.30, AST 19, ALT 23, Alkaline Phosphatase 93, Total Protein 7.4, Albumin 3.0 L, Globulin 4.4 H, Albumin/ Globulin Ratio 0.7 L, Triglycerides 131, Cholesterol 120, LDL Cholesterol 56, VLDL Cholesterol 26, HDL Cholesterol 38 L 02/25/18 06:39: POC Glucose 177 H 02/25/18 11:22: POC Glucose 126 H Current Medications Acetaminophen (Tylenol) 650 mg PO Q6H PRN PRN PRN Reason: Mild Pain (1-3)/Temp > 100.7 F Last Admin: 02/25/18 04:30 Dose: 650 mg Alprazolam (Xanax) 0.5 mg PO DAILY PRN PRN Reason: ANXIETY Aspirin (Aspirin, Baby) 81 mg PO DAILY@0800 [facility] Last Admin: 02/25/18 08:31 Dose: 81 mg Atorvastatin Calcium (Lipitor) 20 mg PO QHS [facility] Last Admin: 02/24/18 22:03 Dose: 20 mg Calcium Acetate (Phoslo Gel Cap) 1,334 mg PO TIDCM [facility] Last Admin: 02/25/18 11:25 Dose: 1,334 mg Carvedilol (Coreg) 25 mg PO BID [facility] Last Admin: 02/25/18 08:31 Dose: 25 mg Dextrose (D50w Syringe) 0 gm IV X1 PRN; Protocol PRN Reason: Hypoglycemia Dicyclomine HCl (Bentyl) 20 mg PO 4X/DAY PRN PRN PRN Reason: distress Ergocalciferol (Vitamin D) 50,000 unit PO FR [facility] Fluoxetine HCl (Prozac) 40 mg PO DAILY [facility] Last Admin: 02/25/18 08:32 Dose: 40 mg Glucagon () 1 mg IM .X1 PRN PRN Reason: Hypoglycemia Heparin Sodium (Porcine) (Heparin Na) 5,000 unit SC Q8 [facility] Last Admin: 02/25/18 05:00 Dose: 5,000 units Insulin Glargine (Lantus (Bkc)) 5 units SC QHS [facility] Last Admin: 02/24/18 22:03 Dose: 5 units Insulin Human Lispro (Humalog Kwikpen (Bkc)) 0 unit SQ TIDAC [facility] PRN Reason: Protocol Last Admin: 02/25/18 11:23 Dose: Not Given Insulin Human Lispro (Humalog Kwikpen (Bkc)) 10 unit SC TIDCM [facility] Last Admin: 02/25/18 11:26 Dose: 10 units Isosorbide Mononitrate (Imdur) 60 mg PO DAILY [facility] Last Admin: 02/25/18 08:31 Dose: 60 mg Lisinopril (Zestril) 20 mg PO DAILY [facility] Last Admin: 02/25/18 08:32 Dose: 20 mg Magnesium Hydroxide (Milk Of Magnesia) 30 ml PO DAILY PRN PRN Reason: Constipation Nitroglycerin (Nitrostat) 0.4 mg SUBLINGUAL Q5M PRN PRN Reason: CHEST PAIN Nutritional Formula (Lactose Free) (Glucerna Shake) 120 ml PO TIDCM [facility] Last Admin: 02/25/18 11:19 Dose: Not Given Ondansetron HCl (Zofran Odt) 4 mg PO Q8H PRN PRN PRN Reason: NAUSEA Ondansetron HCl (Zofran) 4 mg IV Q8H PRN PRN PRN Reason: NAUSEA Last Admin: 02/24/18 22:04 Dose: 4 mg Pantoprazole Sodium (Protonix) 20 mg PO DAILY [facility] Last Admin: 02/25/18 08:32 Dose: 20 mg Promethazine HCl (Phenergan Tablet) 25 mg PO Q6H PRN PRN PRN Reason: NAUSEA Last Admin: 02/25/18 04:34 Dose: 25 mg Sodium Bicarbonate (Sodium Bicarbonate) 650 mg PO TuThSa@1000 [facility] Sodium Chloride () 5 - 30 ml IV UD PRN PRN Reason: SALINE FLUSH Last Admin: 02/25/18 11:25 Dose: 10 ml Medical Necessity - Tobacco Use Smoking Status: Current every day smoker Tobacco Use: Cigarettes Assessment/Plan All Active Problems Chest pain (Acute) Migraine (Acute) Metabolic encephalopathy (Acute) Chest pain (Acute) Tooth abscess (Resolved) Intractable nausea and vomiting (Resolved) Pneumonia (Resolved) Pulmonary edema (Resolved) Hyperkalemia (Resolved) Atypical chest pain (Resolved) Acute hypoxic respiratory failure (Resolved) Pulmonary edema (Resolved) Clostridium difficile enterocolitis (Resolved) Necrotizing myositis (Resolved) Dysmenorrhea (Resolved) Hx of necrotizing fascIItis (Resolved) Iron deficiency anemia due to chronic blood loss (Resolved) Systolic congestive heart failure (Resolved) 1. Unstable angina * Medical management for now. Patient is no longer having any chest pain * Cardiology will be on consultation as patient already went a stress test on February 09 which was negative * negative troponins * Patient may require a left heart catheterization. Patient aware that she may not be able to have a left heart catheterization, if that is what is determined until the 2. Migraine * improved * Patient receiving a cocktail medications currently in the emergency room * Hold off in any additional agents at this time unless it recurs * The patient has recurrence of her migraine with avoid triptan's in the light of the chest pain/unstable angina workup 3. Metabolic encephalopathy * Patient had some self-reported confusion of not being able to operate a seatbelt. Do not appreciate any focal deficits. Feels prior combination patient's migraine her chest symptoms and possible also some metabolic derangements as well * Head CT was negative * If patient has continued recurrence and may change and can do additional workup later point but not. 4. End-stage renal disease * Patient completed dialysis with exception of the last 45 minutes today * Depending on patient's length states she does require heart catheterization will consult nephrology. I would hold off on constant right now it is unclear how long the patient will require further hospitalization at this point time as patient's next dialysis is due on the . * Consult nephrology. May require earlier HD given the [facility] for 02/26 5. Diabetes mellitus type 2 * fair control * Continue with home insulin regimen plus sliding scale 6. DVT prophylaxis with subcu heparin Code Visit Inpatient E&M: 25493 Subs Hosp L2
--- NOTE | 2018-02-25 12:37 | CON.PCM_ITS ---
Problem List (1) Chest pain Status: Acute (2) Abnormal electrocardiogram [ECG] [EKG] Status: Acute (3) CAD (coronary artery disease) Status: Acute (4) Hyperlipidemia Status: Chronic Qualifiers: Hyperlipidemia type: unspecified (5) HTN (hypertension) Status: Chronic Qualifiers: Hypertension type: essential hypertension (6) Diabetes mellitus type 1 Status: Chronic Qualifiers: Diabetes mellitus complication status: with unspecified complications Qualified Code(s): E10.8 - Type 1 diabetes mellitus with unspecified complications (7) ESRD on dialysis Status: Chronic (8) S/P repair of PDA (patent ductus arteriosus) Status: Resolved Comment: At young age Reason for Consult Date of Consultation: 02/25/18 History of Present Illness: The patient is a 42 year old white female with a past medical history which has included hyperlipidemia, hypertension, diabetes mellitus, end-stage renal disease on chronic hemodialysis, status post a remote PDA repair, as well as a history of non-angiographically significant CAD-LAD disease, who presents for recurrent chest pain and recurrent abnormal electrocardiogram for additional cardiovascular evaluation. She has been previously evaluated by Dr. Magdaleno of the [facility] with both noninvasive and invasive studies. It appears that in May 2013 she underwent diagnostic cardiac catheterization. At that time per the report the left main coronary artery was patent, the LAD had mid 30-40% stenosis, the LCx was patent, and the RCA was considered large and dominant and patent. The left ventricle was considered to have mild global dysfunction with an LVEF of 45-50%. She was continued on medical management. She has been evaluated by the [facility] ED and hospitalist staff in the interim. This is been for recurrent chest discomfort and ECG changes. Most recently she underwent evaluation with a stress echocardiogram. According to the report this was reported as a normal, adequate, dobutamine echocardiogram considered negative for ischemia by ECG and echocardiographic criteria. It was noted the patient had baseline severe inferior posterior hypokinesis which did not improve with infusion. A hypertensive blood pressure response was noted to dobutamine. It was noted there was decreased sensitivity due to failure to reach target heart rate. The patient also required additional contrast imaging based upon poor echocardiographic windows. The patient presented back to the emergency department based upon recurrent chest discomfort. She stated she felt as if someone was sitting on her chest. It was a heavy pressure sensation. She did not note any significant change in her respiratory status. She did not complain of associated nausea, emesis, or diaphoresis. There was no near syncope or syncope. She states she was treated with nitrates and did improve. In the emergency department her troponin I level was negative. Her ECG demonstrated sinus rhythm with T-wave changes in the anterior, lateral, and inferior distribution raising concerns of ischemia. Apparently these changes have waxed and waned in comparison to previous electrocardiograms. The patient was placed in the ICU for further evaluation and care. At the present time she feels better. Her troponin I level has remained negative. Her ECG changes appear less prominent. She was also noted to be somewhat hypokalemic upon admission, which has occurred in the past, and thus she underwent potassium supplement. She has denied ongoing orthopnea or PND or peripheral pitting edema. She continues with her hemodialysis on a Monday, , Monday basis. [] Past Medical History Allergies/Adverse Reactions: Allergies latex Allergy (Verified 02/08/18 14:54) Rash levofloxacin [From Levaquin] Adverse Reaction (Verified 02/08/18 14:54) PT CAN'T REMEMBER PT CAN'T REMEMBER metoclopramide HCl [From Reglan] Adverse Reaction (Verified 02/08/18 14:54) Nausea NSAIDS (Non-Steroidal Anti-Inflamma Adverse Reaction (Verified 02/08/18 14:54) kidney function oxycodone HCl [From Percocet] Adverse Reaction (Verified 02/08/18 14:54) HALLUCINATIONS Home Medications: Ambulatory Orders Medication Instructions Recorded Aspirin [Aspirin, Baby] 81 mg PO DAILY@0800 01/26/16 Calcium Acetate [Phoslo Gel Cap] 1,334 mg PO TIDCM 01/26/16 Ergocalciferol [Vitamin D] 50,000 unit PO FR 01/26/16 Insulin Aspart [Novolog Flexpen] 10 units SC TIDCM 01/26/16 Insulin Glargine,Hum.rec.anlog 5 unit SQ QHS 01/09/17 [Lantus] proMETHazine tablet [Phenergan 25 mg PO Q6H PRN PRN #10 tablet 03/06/17 tablet] Lisinopril 20 mg PO DAILY 03/29/17 Sodium Bicarbonate 650 mg PO TUTHSA 03/29/17 Carvedilol [Coreg (Beta Chang)] 25 mg PO BID 06/17/17 Fluoxetine HCl 40 mg PO DAILY 09/02/17 ALPRAZolam [Xanax] 0.5 mg PO DAILY 11/21/17 Ondansetron [Zofran Odt] 4 mg PO Q8H PRN PRN #10 tablet 01/27/18 Atorvastatin Calcium 20 mg PO QHS 02/08/18 Dicyclomine HCl [Bentyl] 20 mg PO 4X/DAY PRN PRN 02/08/18 Isosorbide DN [Isordil] 60 mg PO DAILY 02/08/18 Naproxen 500 mg PO BID PRN PRN 02/08/18 Omeprazole Magnesium [Prilosec Otc] 20 mg PO DAILY 02/08/18 Past Medical History (Chronic Problems): Chronic Problems ESRD (end stage renal disease) on dialysis (Chronic) Decubitus ulcer, stage III (Chronic) CAD (coronary artery disease) (Chronic) Anemia, chronic disease (Chronic) Pilonidal cyst with abscess (Chronic) GABRIEL (obstructive sleep apnea) (Chronic) ESRD on dialysis (Chronic) Depression (Chronic) Anxiety (Chronic) HTN (hypertension) (Chronic) Nonischemic cardiomyopathy (Chronic) With ejection fraction 45 - 50%; with angiographically normal coronary arteries 05/2013; follows up with Dr. Magdaleno Diabetes mellitus type 1 (Chronic) Hyperlipidemia (Chronic) Obesity (BMI 30.0-34.9) (Chronic) Gastroparesis (Chronic) Psychiatric History: No pertinent psych hx - *Family History Maternal History Items: Cancer, COPD, Diabetes, Hypertension, Renal Disease, Stroke Paternal History Items: Diabetes Sibling History Items: Cancer, Diabetes Smoking Status: Current every day smoker Tobacco Use: Cigarettes Alcohol: None Drugs: None Subjectve: This is a 42-year-old white female who appears to be resting comfortably at the moment in no acute distress. Objective: Vital Signs Temp Pulse Resp BP Pulse Ox 97.7 F L 81 16 147/79 H 94 02/25/18 08:15 02/25/18 11:39 02/25/18 08:15 02/25/18 08:15 02/25/18 08:15 Oxygen Flow Rate (L/min) 2 Oxygen Delivery Method Room Air Weight: 193 lb 5.526 oz Body Mass Index (BMI) 31.1 Intake and Output for Last 24 Hours 02/23/18 02/24/18 02/25/18 23:59 23:59 23:59 Intake Total 240 / 240 360 / 360 Balance 240 / 240 360 / 360 General: Awake, Alert, Oriented x 3, Cooperative, No Acute Distress HEENT: Atraumatic, Normocephalic, PERRL, EOMI, Sclera Non Icteric Oral: Moist Mucosa Neck: Supple, Good ROM, No JVD Lungs: Clear to auscultation Cardiovascular: Regular Rhythm, Normal S1, Normal S2 Abdomen: Bowel Sounds Present, Soft, Non Tender Extremities: No Cyanosis, No Clubbing, No edema Psych/Mental Status: Appropriate 02/24/18 18:38: Troponin I < 0.015 02/24/18 21:31: Troponin I < 0.015 02/25/18 05:30: Sodium 141, Potassium 4.7, Chloride 97 L, Carbon Dioxide 34.0 H , Anion Gap 10, BUN 23 H, Creatinine 4.58 H, Est GFR (MDRD) Af Amer 13 L, Est GFR (MDRD) Non-Af 11 L, BUN/Creatinine Ratio 5.0 L, Glucose 208 H, Calcium 8.4 L , Total Bilirubin 0.30, Triglycerides 131, Cholesterol 120, LDL Cholesterol 56, VLDL Cholesterol 26, HDL Cholesterol 38 L Rhythm: Sinus rhythm EKG: As noted above ECHO: 06/12/2013: Left ventricle reported at top normal LV size with moderate concentric LVH and left ventricular regional wall motion abnormalities with an LVEF of 40% with no valvular heart disease reported and decreased diastolic compliance Stress Test: As noted above Cardiac Cath: As noted above CXR: Preliminary evaluation: No acute cardiopulmonary disease process appreciated: Please see official report Brain CT scan: Per radiology: No acute changes: Please see official report Assessment/Plan 1. Chest pain The patient has recurrent chest pain. She does have some features concerning for angina pectoris. This is superimposed upon her cardiovascular risk factors and a history of underlying CAD in the LAD distribution-previously considered non- angiographically significant and a recent dobutamine stress echocardiogram which was considered negative-at the heart rate achieved. At the present time the patient undergoes cardiac enzymes which have been negative. Her ECG changes have waxed and waned. She has continued medical therapy. She will be considered for further evaluation with diagnostic cardiac catheterization to reassess her underlying CAD status for the need for further diagnostic studies and/or therapeutic intervention. 2. Abnormal electrocardiogram The patient does have an abnormal electrocardiogram. It does raise concerns of possible CAD with myocardial ischemia. She has also undergone evaluation with a brain CT for any obvious evidence of [employer] HEL[employer] etiology that may contribute to elective cardiographic changes. She was noted to be hypokalemic and her potassium was supplemented. From a cardiac standpoint she will continue to be monitored. She will continue medical management. She will undergo evaluation as noted above. 3. CAD She does have an element of CAD. She has been treated medically. Again based upon her recurrent symptoms, recurrent elective cardiographic changes, despite her recent negative dobutamine stress echocardiogram-at the heart rate achieved , it would be reasonable to consider the patient for reevaluation with diagnostic cardiac catheterization. The procedure and risks were discussed with her and she was agreeable to this approach. 4. Hyperlipidemia The patient will continue medical management. 5. Hypertension The patient's blood pressures will need to be followed. Her medications may need to be adjusted in and around the time of her dialysis therapy to assist with blood pressure control. 6. Diabetes mellitus The patient will continue medical management per internal medicine. 7. End-stage renal disease on chronic hemodialysis The patient will need to be followed by nephrology for continued hemodialysis during her hospitalization. 8. Status post PDA repair-remote The patient reports a history of a PDA repair-remote. There has been no comment of any concerns regarding an ongoing PDA issue on her most recent noninvasive studies. Comment: The patient's case has been discussed with the patient and previously with the [facility] emergency department staff. This note was generated with Meograph dictation software. It may contain incorrect words, spelling, and punctuation that were not noted in checking the note before signing.
[2018-02-25] MEDS: Clopidogrel Bisulfate 300 MG Tablet PO (12:44)
--- NOTE | 2018-02-25 14:57 | PCM.CONS.R ---
Problem List (1) ESRD (end stage renal disease) on dialysis Status: Chronic Consultation - Renal PCP/ Referring MD: Requesting physician: [] Primary care physician: Christopher Foy - History of Present Illness History of Present Illness: The patient is a 42 year old F ESRD on TTS. Patient does to [facility] HD center on TTS. Patient presented with chest pain, and headache that happened at the end of her HD session yesterday. In ED showed was found to have ischemic EKG changes and she is being evaluated by cardiology service . Patient is going to have cardiac cath tomorrow Now no chest pain No SOB . still has little headache ROS: 12 systems review is negative except what mentioned in HPI[] - Allergies Allergies: Allergies latex Allergy (Verified 02/08/18 14:54) Rash levofloxacin [From Levaquin] Adverse Reaction (Verified 02/08/18 14:54) PT CAN'T REMEMBER PT CAN'T REMEMBER metoclopramide HCl [From Reglan] Adverse Reaction (Verified 02/08/18 14:54) Nausea NSAIDS (Non-Steroidal Anti-Inflamma Adverse Reaction (Verified 02/08/18 14:54) kidney function oxycodone HCl [From Percocet] Adverse Reaction (Verified 02/08/18 14:54) HALLUCINATIONS - Current Medications Current Medications: Current Medications Acetaminophen (Tylenol) 650 mg PO Q6H PRN PRN PRN Reason: Mild Pain (1-3)/Temp > 100.7 F Last Admin: 02/25/18 14:51 Dose: 650 mg Alprazolam (Xanax) 0.5 mg PO DAILY PRN PRN Reason: ANXIETY Aspirin (Aspirin, Baby) 81 mg PO DAILY@0800 [facility] Last Admin: 02/25/18 08:31 Dose: 81 mg Atorvastatin Calcium (Lipitor) [address] [facility] Last Admin: 02/24/18 22:03 Dose: 20 mg Calcium Acetate (Phoslo Gel Cap) 1,[address] [facility] Last Admin: 02/25/18 11:25 Dose: 1,334 mg Carvedilol (Coreg) [address] [facility] Last Admin: 02/25/18 08:31 Dose: 25 mg Clopidogrel Bisulfate (Plavix) [address] [facility] Dextrose (D50w Syringe) 0 gm IV X1 PRN; Protocol PRN Reason: Hypoglycemia Dicyclomine HCl (Bentyl) 20 mg PO 4X/DAY PRN PRN PRN Reason: distress Ergocalciferol (Vitamin D) 50,000 unit PO [facility] Fluoxetine HCl (Prozac) [address] [facility] Last Admin: 02/25/18 08:32 Dose: 40 mg Glucagon () 1 mg IM .X1 PRN PRN Reason: Hypoglycemia Heparin Sodium (Porcine) (Heparin Na) 5,[address] [facility] Last Admin: 02/25/18 14:52 Dose: 5,000 units Sodium Chloride () 1,000 mls @ 15 mls/hr IV .Q48H [facility] PRN Reason: KVO Insulin Glargine (Lantus (Bkc)) [address] [facility] Last Admin: 02/24/18 22:03 Dose: 5 units Insulin Human Lispro (Humalog Kwikpen (Bk)) [address] [facility] PRN Reason: Protocol Last Admin: 02/25/18 11:23 Dose: Not Given Insulin Human Lispro (Humalog Kwikpen (Bkc)) [address] [facility] Last Admin: 02/25/18 11:26 Dose: 10 units Isosorbide Mononitrate (Imdur) [address] [facility] Last Admin: 02/25/18 08:31 Dose: 60 mg Lisinopril (Zestril) [address] [facility] Last Admin: 02/25/18 08:32 Dose: 20 mg Magnesium Hydroxide (Milk Of Magnesia) 30 ml PO DAILY PRN PRN Reason: Constipation Nitroglycerin (Nitrostat) 0.4 mg SUBLINGUAL Q5M PRN PRN Reason: CHEST PAIN Nutritional Formula (Lactose Free) (Glucerna Shake) [address] [facility] Last Admin: 02/25/18 11:19 Dose: Not Given Ondansetron HCl (Zofran Odt) 4 mg PO Q8H PRN PRN PRN Reason: NAUSEA Ondansetron HCl (Zofran) 4 mg IV Q8H PRN PRN PRN Reason: NAUSEA Last Admin: 02/24/18 22:04 Dose: 4 mg Pantoprazole Sodium (Protonix) [address] [facility] Last Admin: 02/25/18 08:32 Dose: 20 mg Promethazine HCl (Phenergan Tablet) 25 mg PO Q6H PRN PRN PRN Reason: NAUSEA Last Admin: 02/25/18 04:34 Dose: 25 mg Sodium Bicarbonate (Sodium Bicarbonate) 650 mg PO TuThSa@1000 [place] Sodium Chloride () 5 - 30 ml IV UD PRN PRN Reason: SALINE FLUSH Last Admin: 02/25/18 11:25 Dose: 10 ml - Past Medical History Past Medical History (Chronic Problems): Chronic Problems ESRD (end stage renal disease) on dialysis (Chronic) Decubitus ulcer, stage III (Chronic) CAD (coronary artery disease) (Chronic) Anemia, chronic disease (Chronic) Pilonidal cyst with abscess (Chronic) GABRIEL (obstructive sleep apnea) (Chronic) ESRD on dialysis (Chronic) Depression (Chronic) Anxiety (Chronic) HTN (hypertension) (Chronic) Nonischemic cardiomyopathy (Chronic) With ejection fraction 45 - 50%; with angiographically normal coronary arteries 05/2013; follows up with Dr. Magdaleno Diabetes mellitus type 1 (Chronic) Hyperlipidemia (Chronic) Obesity (BMI 30.0-34.9) (Chronic) Gastroparesis (Chronic) - Past Surgical History Surgical History: appendectomy, hysterectomy - and BSO, - - c-sections, L breast I+D for abscess, fistula placement LUE, L ankle surgery, appendectomy, PDA repair. Excision pilonidal cyst ulcer about 4 years ago. Colostomy placed due to rectal abscess/wound, patent ductus repair - Social History Smoking Status: Current every day smoker Alcohol: None Drugs: None - Family History Maternal History Items: Cancer, COPD, Diabetes, Hypertension, Renal Disease, Stroke Paternal History Items: Diabetes Sibling History Items: Cancer, Diabetes Patient Problems: Active and Suspected Problems Chest pain (Acute) Migraine (Acute) Metabolic encephalopathy (Acute) Abnormal electrocardiogram [ECG] [EKG] (Acute) CAD (coronary artery disease) (Acute) - Physical Exam General: Alert, Oriented x3 HEENT: Atraumatic Oral: Moist Mucosa Neck: Supple, No JVD Lungs: Clear to auscultation, Normal air movement Cardiovascular: Regular rate, Regular Rhythm, Normal S1, Normal S2 Abdomen: Bowel Sounds Present, Soft, Non Tender Extremities: No clubbing, No cyanosis, No edema Skin: No rashes Musculoskeletal: No Tenderness to Palpation of Joints or Extremities Lymphatic: No Cervical, Supraclavicular, or Inguinal Adenopathy Neurological: Cranial nerves II-XII grossly intact, Neuro grossly intact Comment: HD access is LUE AVF with pseudoaneurysm. + T and + B Vital Signs Temp Pulse Resp BP Pulse Ox 97.9 F 77 15 167/87 H 95 02/25/18 14:15 02/25/18 14:15 02/25/18 14:15 02/25/18 14:15 02/25/18 14:47 Oxygen Flow Rate (L/min) 2 Oxygen Delivery Method Room Air Weight: 87.7 kg Body Mass Index (BMI) 31.1 Intake and Output for Last 24 Hours 02/23/18 02/24/18 02/25/18 23:59 23:59 23:59 Intake Total 240 / 240 850 / 850 Output Total 3 / 3 Balance 240 / 240 847 / 847 Laboratory Tests Past 24 Hrs 02/24/18 02/24/18 02/25/18 18:38 21:31 05:30 Sodium 141 Potassium 4.7 Chloride 97 L Carbon Dioxide 34.0 H Anion Gap 10 BUN 23 H Creatinine 4.58 H Estim Creat Clear Calc 14.67 Est GFR (MDRD) Af Amer 13 L Est GFR (MDRD) Non-Af 11 L BUN/Creatinine Ratio 5.0 L Glucose 208 H Calcium 8.4 L Total Bilirubin 0.30 AST 19 ALT 23 Alkaline Phosphatase 93 Troponin I < 0.015 < 0.015 Total Protein 7.4 Albumin 3.0 L Globulin 4.4 H Albumin/Globulin Ratio 0.7 L Triglycerides 131 Cholesterol 120 LDL Cholesterol 56 VLDL Cholesterol 26 HDL Cholesterol 38 L POC Glucose 02/25/18 02/25/18 02/24/18 11:22 06:39 21:42 POC Glucose 126 H 177 H 182 H 02/24/18 18:33 POC Glucose 286 H Assessment/Plan All Active Problems Chest pain (Acute) Migraine (Acute) Metabolic encephalopathy (Acute) Abnormal electrocardiogram [ECG] [EKG] (Acute) CAD (coronary artery disease) (Acute) Chest pain (Acute) Tooth abscess (Resolved) Intractable nausea and vomiting (Resolved) Pneumonia (Resolved) Pulmonary edema (Resolved) Hyperkalemia (Resolved) Atypical chest pain (Resolved) Acute hypoxic respiratory failure (Resolved) Pulmonary edema (Resolved) Clostridium difficile enterocolitis (Resolved) Necrotizing myositis (Resolved) S/P repair of PDA (patent ductus arteriosus) (Resolved) Dysmenorrhea (Resolved) Hx of necrotizing fascIItis (Resolved) Iron deficiency anemia due to chronic blood loss (Resolved) Systolic congestive heart failure (Resolved) 2- ESRD on TTS. Patient goes to [facility] HD center and Dr. 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 No need of SETUARDO 4- Chest pain. cardiology is following. possible cardiac cath tomorrow Renal team will continue to follow NAWAF VILLAFUERTE MD
--- NOTE | 2018-02-25 15:03 | CON.PCM_ITS ---
Problem List (1) ESRD (end stage renal disease) on dialysis Status: Chronic Consultation - Renal PCP/ Referring MD: Requesting physician: [] Primary care physician: Christopher Foy - History of Present Illness History of Present Illness: The patient is a 42 year old F ESRD on TTS. Patient does to [facility] on TTS. Patient presented with chest pain, and headache that happened at the end of her HD session yesterday. In ED showed was found to have ischemic EKG changes and she is being evaluated by cardiology service . Patient is going to have cardiac cath tomorrow Now no chest pain No SOB . still has little headache ROS: 12 systems review is negative except what mentioned in HPI[] - Allergies Allergies: Allergies latex Allergy (Verified 02/08/18 14:54) Rash levofloxacin [From Levaquin] Adverse Reaction (Verified 02/08/18 14:54) PT CAN'T REMEMBER PT CAN'T REMEMBER metoclopramide HCl [From Reglan] Adverse Reaction (Verified 02/08/18 14:54) Nausea NSAIDS (Non-Steroidal Anti-Inflamma Adverse Reaction (Verified 02/08/18 14:54) kidney function oxycodone HCl [From Percocet] Adverse Reaction (Verified 02/08/18 14:54) HALLUCINATIONS - Current Medications Current Medications: Current Medications Acetaminophen (Tylenol) 650 mg PO Q6H PRN PRN PRN Reason: Mild Pain (1-3)/Temp > 100.7 F Last Admin: 02/25/18 14:51 Dose: 650 mg Alprazolam (Xanax) 0.5 mg PO DAILY PRN PRN Reason: ANXIETY Aspirin (Aspirin, Baby) 81 mg PO DAILY@0800 [facility] Last Admin: 02/25/18 08:31 Dose: 81 mg Atorvastatin Calcium (Lipitor) 20 mg PO QHS [facility] Last Admin: 02/24/18 22:03 Dose: 20 mg Calcium Acetate (Phoslo Gel Cap) 1,334 mg PO TIDCM [facility] Last Admin: 02/25/18 11:25 Dose: 1,334 mg Carvedilol (Coreg) 25 mg PO BID [facility] Last Admin: 02/25/18 08:31 Dose: 25 mg Clopidogrel Bisulfate (Plavix) 75 mg PO DAILY [facility] Dextrose (D50w Syringe) 0 gm IV X1 PRN; Protocol PRN Reason: Hypoglycemia Dicyclomine HCl (Bentyl) 20 mg PO 4X/DAY PRN PRN PRN Reason: distress Ergocalciferol (Vitamin D) 50,000 unit PO ON LICENSE OF [facility] Fluoxetine HCl (Prozac) 40 mg PO DAILY [facility] Last Admin: 02/25/18 08:32 Dose: 40 mg Glucagon () 1 mg IM .X1 PRN PRN Reason: Hypoglycemia Heparin Sodium (Porcine) (Heparin Na) 5,000 unit SC Q8 [facility] Last Admin: 02/25/18 14:52 Dose: 5,000 units Sodium Chloride () 1,000 mls @ 15 mls/hr IV .Q48H [facility] PRN Reason: KVO Insulin Glargine (Lantus (Bkc)) 5 units SC QHS [facility] Last Admin: 02/24/18 22:03 Dose: 5 units Insulin Human Lispro (Humalog Kwikpen (Bk)) 0 unit SQ TIDAC [facility] PRN Reason: Protocol Last Admin: 02/25/18 11:23 Dose: Not Given Insulin Human Lispro (Humalog Kwikpen (Bkc)) 10 unit SC TIDCM [facility] Last Admin: 02/25/18 11:26 Dose: 10 units Isosorbide Mononitrate (Imdur) 60 mg PO DAILY [facility] Last Admin: 02/25/18 08:31 Dose: 60 mg Lisinopril (Zestril) 20 mg PO DAILY [facility] Last Admin: 02/25/18 08:32 Dose: 20 mg Magnesium Hydroxide (Milk Of Magnesia) 30 ml PO DAILY PRN PRN Reason: Constipation Nitroglycerin (Nitrostat) 0.4 mg SUBLINGUAL Q5M PRN PRN Reason: CHEST PAIN Nutritional Formula (Lactose Free) (Glucerna Shake) 120 ml PO TIDCM [facility] Last Admin: 02/25/18 11:19 Dose: Not Given Ondansetron HCl (Zofran Odt) 4 mg PO Q8H PRN PRN PRN Reason: NAUSEA Ondansetron HCl (Zofran) 4 mg IV Q8H PRN PRN PRN Reason: NAUSEA Last Admin: 02/24/18 22:04 Dose: 4 mg Pantoprazole Sodium (Protonix) 20 mg PO DAILY [facility] Last Admin: 02/25/18 08:32 Dose: 20 mg Promethazine HCl (Phenergan Tablet) 25 mg PO Q6H PRN PRN PRN Reason: NAUSEA Last Admin: 02/25/18 04:34 Dose: 25 mg Sodium Bicarbonate (Sodium Bicarbonate) 650 mg PO TuThSa@1000 [place] Sodium Chloride () 5 - 30 ml IV UD PRN PRN Reason: SALINE FLUSH Last Admin: 02/25/18 11:25 Dose: 10 ml - Past Medical History Past Medical History (Chronic Problems): Chronic Problems ESRD (end stage renal disease) on dialysis (Chronic) Decubitus ulcer, stage III (Chronic) CAD (coronary artery disease) (Chronic) Anemia, chronic disease (Chronic) Pilonidal cyst with abscess (Chronic) GABRIEL (obstructive sleep apnea) (Chronic) ESRD on dialysis (Chronic) Depression (Chronic) Anxiety (Chronic) HTN (hypertension) (Chronic) Nonischemic cardiomyopathy (Chronic) With ejection fraction 45 - 50%; with angiographically normal coronary arteries 05/2013; follows up with Dr. Magdaleno Diabetes mellitus type 1 (Chronic) Hyperlipidemia (Chronic) Obesity (BMI 30.0-34.9) (Chronic) Gastroparesis (Chronic) - Past Surgical History Surgical History: appendectomy, hysterectomy - and BSO, - - c-sections, L breast I+D for abscess, fistula placement LUE, L ankle surgery, appendectomy, PDA repair. Excision pilonidal cyst ulcer about 4 years ago. Colostomy placed due to rectal abscess/wound, patent ductus repair - Social History Smoking Status: Current every day smoker Alcohol: None Drugs: None - Family History Maternal History Items: Cancer, COPD, Diabetes, Hypertension, Renal Disease, Stroke Paternal History Items: Diabetes Sibling History Items: Cancer, Diabetes Patient Problems: Active and Suspected Problems Chest pain (Acute) Migraine (Acute) Metabolic encephalopathy (Acute) Abnormal electrocardiogram [ECG] [EKG] (Acute) CAD (coronary artery disease) (Acute) - Physical Exam General: Alert, Oriented x3 HEENT: Atraumatic Oral: Moist Mucosa Neck: Supple, No JVD Lungs: Clear to auscultation, Normal air movement Cardiovascular: Regular rate, Regular Rhythm, Normal S1, Normal S2 Abdomen: Bowel Sounds Present, Soft, Non Tender Extremities: No clubbing, No cyanosis, No edema Skin: No rashes Musculoskeletal: No Tenderness to Palpation of Joints or Extremities Lymphatic: No Cervical, Supraclavicular, or Inguinal Adenopathy Neurological: Cranial nerves II-XII grossly intact, Neuro grossly intact Comment: HD access is LUE AVF with pseudoaneurysm. + T and + B Vital Signs Temp Pulse Resp BP Pulse Ox 97.9 F 77 15 167/87 H 95 02/25/18 14:15 02/25/18 14:15 02/25/18 14:15 02/25/18 14:15 02/25/18 14:47 Oxygen Flow Rate (L/min) 2 Oxygen Delivery Method Room Air Weight: 87.7 kg Body Mass Index (BMI) 31.1 Intake and Output for Last 24 Hours 02/23/18 02/24/18 02/25/18 23:59 23:59 23:59 Intake Total 240 / 240 850 / 850 Output Total 3 / 3 Balance 240 / 240 847 / 847 Laboratory Tests Past 24 Hrs 02/24/18 02/24/18 02/25/18 18:38 21:31 05:30 Sodium 141 Potassium 4.7 Chloride 97 L Carbon Dioxide 34.0 H Anion Gap 10 BUN 23 H Creatinine 4.58 H Estim Creat Clear Calc 14.67 Est GFR (MDRD) Af Amer 13 L Est GFR (MDRD) Non-Af 11 L BUN/Creatinine Ratio 5.0 L Glucose 208 H Calcium 8.4 L Total Bilirubin 0.30 AST 19 ALT 23 Alkaline Phosphatase 93 Troponin I < 0.015 < 0.015 Total Protein 7.4 Albumin 3.0 L Globulin 4.4 H Albumin/Globulin Ratio 0.7 L Triglycerides 131 Cholesterol 120 LDL Cholesterol 56 VLDL Cholesterol 26 HDL Cholesterol 38 L POC Glucose 02/25/18 02/25/18 02/24/18 11:22 06:39 21:42 POC Glucose 126 H 177 H 182 H 02/24/18 18:33 POC Glucose 286 H Assessment/Plan All Active Problems Chest pain (Acute) Migraine (Acute) Metabolic encephalopathy (Acute) Abnormal electrocardiogram [ECG] [EKG] (Acute) CAD (coronary artery disease) (Acute) Chest pain (Acute) Tooth abscess (Resolved) Intractable nausea and vomiting (Resolved) Pneumonia (Resolved) Pulmonary edema (Resolved) Hyperkalemia (Resolved) Atypical chest pain (Resolved) Acute hypoxic respiratory failure (Resolved) Pulmonary edema (Resolved) Clostridium difficile enterocolitis (Resolved) Necrotizing myositis (Resolved) S/P repair of PDA (patent ductus arteriosus) (Resolved) Dysmenorrhea (Resolved) Hx of necrotizing fascIItis (Resolved) Iron deficiency anemia due to chronic blood loss (Resolved) Systolic congestive heart failure (Resolved) 2- ESRD on TTS. Patient goes to [facility] and Dr. Martinez is her vest presser Last HD session 02/24 with 0.6 L UF HD access LUE AVF Next HD session 02/27 2- HTN: BP is well controlled 3- Anemia: Hgb 12. No need of ESTUARDO 4- Chest pain. cardiology is following. possible cardiac cath tomorrow Renal team will continue to follow NAWAF VILLAFUERTE MD
[2018-02-25 17:16] LABS: Bedside Glucose 150 mg/dL (70-110)
[2018-02-25] MEDS: Atorvastatin Calcium 20 MG Tablet PO (22:03)
[2018-02-25] MEDS: DiphenhydrAMINE 25 MG Capsule 50 MG PO (22:11)
[2018-02-25] MEDS: Ondansetron 4 MG/2 ML Vial IV (22:11)
[2018-02-25 22:21] LABS: Bedside Glucose 168 mg/dL (70-110)
[2018-02-26] VITALS (21 sets, daily range): BP systolic 120–171; BP diastolic 69–85; PULSE 74–91; RESP 15–26; TEMP 26.4–36.7; O2SAT 94–100
--- NOTE | 2018-02-26 01:13 | NURSING ---
Report called for and received from [facility] by MALLORY Rushing
[2018-02-26 01:22] LABS: Bacteria 0 SEEN /hpf (None Seen); Mucous, Urine 0 SEEN /hpf (<or=2+)
[2018-02-26 01:35] LABS: Color, Urine Yellow (Yellow); Glucose, Dipstick 100 mg/dl (Normal); Ketone-Dipstick Negative (Negative); Leukocyte Esterase-Dipstick 25 /ul (Negative); Nitrite-Dipstick Negative (Negative); Occult Blood-Urine 25 /ul (Negative); Protein-Dipstick 100 mg/dl (Negative); Specific Gravity, Urine 1.015 (1.002-1.030); Urine Bilirubin Dipstick Negative (Negative); Urine Clarity Clear (Clear); Urine Urobilinogen Normal (Normal)
[2018-02-26 01:37] LABS: Internal QC Validated? YES +Cl - CLEAR BKGD; Pregnancy, Urine Negative Negative
[2018-02-26 01:42] LABS: Red Blood Cells-Urine 0-5 SEEN /hpf (0-5); Squamous Epithelial Cells - UA > 100 SEEN /hpf (5-10); White Blood Cells 0-5 SEEN /hpf (0-5)
--- NOTE | 2018-02-26 04:00 | EKG12_ITS ---
Test Reason : AM EKG Blood Pressure : / mmHG Vent. Rate : 077 BPM Atrial Rate : 077 BPM P-R Int : 148 ms QRS Dur : 094 ms QT Int : 416 ms P-R-T Axes : 042 047 112 degrees QTc Int : 470 ms Normal sinus rhythm T wave abnormality, consider lateral ischemia Prolonged QT Abnormal ECG Confirmed by CHEPE BEASLEY, KAITLYNN ([id number]), offline editor SHANIA SOLITARIO ([id number] on 02/28/2018 11:27:36 AM Referred By: FERNY Confirmed By:KAITLYNN MO MD
[2018-02-26 04:45] LABS: International Normalized Ratio 1.1; Partial Thromboplast Time 31.5 Seconds (24.1-36.2); Prothrombin Time (Protime)PT. 13.9 SECONDS (11.7-14.9)
[2018-02-26 04:53] LABS: Absolute Lymphocyte Count 1.23 X10^3/ul (0.83-4.51); Absolute Neutrophil Count 5.3 X10^3/uL (2.0-7.7); Basophil# 0.02 X10^3/uL; Basophil% 0.3 % (0-1); Eosinophil# 0.47 X10^3/uL; Eosinophils% 6.5 % (0-5); Hemoglobin 12.2 g/dl (12.0-15.0); Lymphocyte # 1.23 X10^3/ul (4.0); Lymphocyte % 17.1 % (19-41); Mean Corp Hgb Conc 30.5 g/gl (32-36); Mean Corpuscular Hgb 31.4 pg (27.0-32.0); Mean Corpuscular Volume 103.1 fL (81-99); Mean Platelet Vol. 8.7 fl (6.2-12.0); Monocyte# 0.22 X10^3/uL; Monocyte% 3.1 % (0-10); Neutrophil # 5.27 X10^3/uL (2.7-7.7); Platelet Count 124 K/mm3 (150-450); RBC Distribution Width CV 16.3 % (11.6-14.6); RBC Distribution Width SD 61.3 fl (35.1-43.9); Red Blood Count 3.88 M/mm3 (4.2-5.4); White Blood Count 7.2 K/mm3 (4.4-11.0)
[2018-02-26 05:36] LABS: POSITIVE COUNT NO; POSITIVE DIFFERENTIAL NO; POSITIVE MORPHOLOGY NO
[2018-02-26] MEDS: 0.9% NaCl Peripheral Flush Adult/Peds IV (05:49)
[2018-02-26] MEDS: 0.9% Normal Saline 1,000 ML 15 ML IV ×2 (05:49→08:36)
[2018-02-26] MEDS: Lisinopril 20 MG Tablet PO (05:53)
[2018-02-26] MEDS: Carvedilol 25 MG Tablet PO ×2 (05:53→21:40)
[2018-02-26] MEDS: Aspirin 81 MG TAB.CHEW PO (05:53)
[2018-02-26] MEDS: Clopidogrel Bisulfate 75 MG Tablet PO (05:53)
[2018-02-26] MEDS: Isosorbide Mononitrate 60 MG Tablet PO (05:53)
[2018-02-26 06:51] LABS: Bedside Glucose 179 mg/dL (70-110)
[2018-02-26 07:19] LABS: Anion Gap 6 (5-15); BUN 41 mg/dL (7-18); BUN/Creat Ratio 6.3 RATIO (10-20); Calcium,Total 8.1 mg/dL (8.5-10.1); Chloride 100 mmol/L (98-107); Creatinine, Serum 6.48 mg/dL (0.55-1.02); EST Glomerular Filtration Rate 7 mL/min (>60); Est Glom Filt Rate - Afr Amer 9 mL/min (>60); Estimated Creatinine Clearance 10.37 ml/min; Glucose 177 mg/dL (74-106); Potassium 6.4 mmol/L (3.5-5.1); Sodium Level 134 mmol/L (136-145)
[2018-02-26] MEDS: Insulin Lispro 100 UNIT/ML INSULN.PEN 10 UNIT SC ×2 (08:30→19:56)
[2018-02-26] MEDS: DiphenhydrAMINE 25 MG Capsule 50 MG PO (08:36)
--- NOTE | 2018-02-26 09:30 | CASEMGMT ---
This RN CM to bedside to complete CM assessment and pt is out of dept getting a heart cath at this time. Will attempt again later. SStmaxx TEJADA CM
[2018-02-26 11:01] LABS: ACT Activated Clotting Time 213 sec (74-137)
--- NOTE | 2018-02-26 11:13 | CL.I_ITS ---
Patient Name: KOURTNEY REZA Study Date: 02/26/2018 Performing: Mark Magdaleno MD Ht: 66.14 inches 168 cm : 1975 Wt: 194.01 lbs 88 kg Age: 42 Gender: female BSA: 1.98 PROCEDURE(S) PERFORMED UG77-HPM/COR/LV [id number] W OR WO PTCA, SINGLE CORONARY ARTERY CLINICAL PROFILE AND CO-MORBIDITIES Indications: ACS <= 24 hrs, New Onset Angina <= 2 months, Suspected CAD, LV Dysfunction Heart Failure: None Stress/Imaging Stress Echocardiogram: Yes Result: Negative Stress Echocardiogram: Negative Angina Classification Anginal Classification w/in 2 Weeks: CCS III CAD Presentations: Unstable angina. Comorbidities/Risk Factors: Current/Recent Smoker (< 1year) Hypertension Dyslipidemia Currently On Dialysis Diabetes Mellitus: Diabetes Therapy: Insulin CONCLUSIONS Single vessel CAD of the mid LAD Non obstructive coronary arteries Global LV systolic dysfunction- Mild Elevated Left Ventricular End Diastolic Pressure Successful PTCA/VIKY of the of mid LAD after FFR of 0.82; PCI with a 2.5 x 24 Promus Synergy, post dil ated with a 3.0 x 8 NC balloon at various pressures for nominal expansion throughout, 75%-->0%, no di ssection. Pt had identical chest pressure with balloon inflation. Medical management of OM lesion given <50% stenosis. Pt will need at least 1 year of DAPT followed by stress test prior to colostomy reversal. Dialysis today given hyperkalemia and recent cath/pci. RECOMMENDATIONS Referred for immediate PCI Staged for FFR Highly recommend quitting all tobacco products Follow up with primary leather sorter Risk factor modification ASA Indefinitley Plavix for at least 12 months Routine post interventional care Refer for Outpatient Cardiac Rehab Manual sheath removal per protocol DESCRIPTION OF PROCEDURE The patient arrived to the procedure lab. The risks and benefits of the procedure as well as a full d escription of our services here and lack of surgical backup were fully explained to the patient and/o r their significant other prior to the catheterization. The Timeout was completed, verifying the logan ect patient and procedure. The patient's procedural site was prepped and draped in the usual fashion. Local anesthetic was given subcutaneously to right groin region with Lidocaine 2%. Using a modified Seldinger technique, arterial access was obtained via the right femoral artery, a 4Fr sheath was inse rted. Left Coronary Artery selective angiography was performed in multiple views using a 4 Fr. JL5 c atheter. Right Coronary Artery selective angiography was then performed in multiple views using a 4 F r. 3DRC catheter. Left Ventriculography was performed in GARRIDO projection using a 4 Fr. Pigtail cathete r. LV to AO pullback pressures were then recorded Arterial sheath was exchanged for a 6 Fr Sheath. EBU 3.75 Guide catheter was inserted and engaged int o the LCA. The FFR/iFR wire was inserted. Adenosine was then given per protocol. FFR Ratio Baseline: 0.89 FFR Ratio post Adenosine: 0.82 2x12 Emerge Balloon catheter was inserted. Balloon catheter was a dvanced across lesion in the LAD, mid. PTCA balloon inflated at 6 atms for 12 secs. PTCA balloon infl ated at 6 atms for 12 secs. PTCA balloon inflated at 6 atms for 10 secs. Angiogram performed post bal loon dilatation. 2.5x24 Synergy Drug Eluting stent was inserted. Drug Eluting stent was advanced acro ss the lesion in the LAD, mid. 3x8 NC Emerge Balloon catheter was inserted. Balloon catheter was inse rted post stent. Balloon catheter was advanced across lesion in the LAD, mid. Angiogram performed pos t stent deployment. Angiogram performed post balloon dilatation. The FFR/iFR wire was then removed. C ontrast was injected through the sheath and the Right Iliac and Femoral artery were assessed for poss ible closure device. The arterial sheath was pulled and a Mynx closure device was deployed for hemos tasis CORONARY ANGIOGRAPHY DOMINANCE: Right Dominant LEFT HEART ASSESSMENT Left Ventricular Ejection Fraction: by LV Gram 55 % Depressed Left Ventricular systolic function Elevated Left Ventricular End Diastolic Pressure Global Hypokinesis - Mild LEFT MAIN: Angiographically normal LEFT ANTERIOR DECENDING ARTERY: PROX LAD: Mild calcification MID LAD: 75 % Stenosis CIRCUMFLEX ARTERY: Mild luminal irregularities less than 30% OM 1: Mid - Moderate luminal irregularities up to 50% RIGHT CORONARY ARTERY: DISTAL RCA: Mild calcification RT PLV: Mild luminal irregularities less than 30% INTERVENTION INFORMATION LESION SITE: LAD (Mid) Lesion Complexity: High/C, lesion at bifurcation: No, thrombus present: No, lesion length: 24 mm, cul prit lesion: Yes Pre Stenosis: 75 % Pre intervention MARIANA flow: 3 PROCEDURE: FFR, Drug Eluting Stent with pre and post dilatation Post Stenosis: 0 % Post intervention MARIANA flow: 3 Lesion Devices: IGT Devices ( Formerly Wedron) Coronary FFR Wire Medtronic 6 Fr EBU3.75 100cm Guide Catheter Edward Sci EMERGE MR 2.00x12 BALLOON Edward Sci Synergy MR VIKY 2.50x24 Edward Sci NC EMERGE MR 3.00x08 BALLOON COMPLICATIONS No Complications PROCEDURE MEDICATIONS Oxygen: 2 L/min via nasal cannula Adenosine drip for FFR 24.4ml IV @ 02/26/2018 10:22:30 Heparin 6000 unit(s) IV 02/26/2018 10:17:03 Nitro 200 mcg IC 02/26/2018 10:09:06 Nitro 200 mcg IC 02/26/2018 10:09:06 Nitro 200 mcg IC 02/26/2018 10:20:24 SUMMARY OF HEMODYNAMIC DATA Time AIR REST ECG 09:38:09 AO 125/80 (101) SA 10:06:47 AO 112/75 (92) 10:09:19 LV 165/0, 29 10:14:11 LV 165/-1, 29 10:14:17 LVp 168/-1, 28 10:14:23 AOp 165/75 (110) 10:14:28 AO 161/73 (106) 10:21:56 Signed By Mark Magdaleno MD On 02/26/2018 11:13:19 Mark Magdaleno MD
--- NOTE | 2018-02-26 13:13 | NURSING ---
Report called for and received from [facility] by MALLORY Rushing
--- NOTE | 2018-02-26 13:35 | EKG12_ITS ---
Test Reason : ADMIT Blood Pressure : / mmHG Vent. Rate : 064 BPM Atrial Rate : 064 BPM P-R Int : 154 ms QRS Dur : 088 ms QT Int : 466 ms P-R-T Axes : 021 048 201 degrees QTc Int : 480 ms Normal sinus rhythm T wave abnormality, consider inferolateral ischemia Prolonged QT Abnormal ECG Confirmed by CHEPE BEASLEY, KAITLYNN ([id number]), film editor supervisor SHANIA SOLITARIO ([id number]) on 02/28/2018 11:32:03 AM Referred By: Confirmed By:KAITLYNN MO MD
[2018-02-26] MEDS: 0.9% Normal Saline 1,000 ML 150 ML IV (14:00)
[2018-02-26 14:16] LABS: Bedside Glucose 174 mg/dL (70-110)
--- NOTE | 2018-02-26 14:28 | CRPHASE1 ---
Patient Data/Charges Start Phase II:: FOLLOWING CARDIOLOGY VISIT Risk Factors/Lifestyle Smoking Status: Current every day smoker Hx Diabetes Mellitus Type 1: Yes Hx Metabolic Disorders: Yes Hx Dyslipidemia: Yes Hx Obesity: Yes Height: 5 ft 6 in - BMI 31.2 Post-Menopausal: No Stress: Home/Family Risk Factor for Sedentary Lifestyle: Highest Risk Past Cardiac Illness: Coronary Artery Disease, Other - END STAGE RENAL DISEASE, CURRENTLY ON DIALYSIS Laboratory Values: Cardiac Rehab Phase I Labs Triglycerides 131 mg/dL (-199) 02/25/18 05:30 Cholesterol 120 mg/dL (200) 02/25/18 05:30 LDL Cholesterol 56 mg/dL (0-130) 02/25/18 05:30 HDL Cholesterol 38 mg/dL (40-) L 02/25/18 05:30 Phase I Education Given On:: [place], Nutrition, Antiplatelet medication, Smoking cessation, Diabetes - Type I Issues Affecting Care:: None Knowledge of Condition:: Yes Learning Preferences: Verbal, Written Hospital Course Presenting Symptoms:: C/P Medical/Surgical History MA:: No Angina:: Yes CAD:: Yes COPD:: Yes Diabetes:: Yes Diabetes Type I:: Yes Hypertension:: Yes Dyslipidemia:: Yes Renal:: Yes - END STAGE RENAL DISEASE/ CURRENTLY ON DIALYSIS Anxiety:: Yes Discharge/Home/Social Eval Discharge Disposition: Home
--- NOTE | 2018-02-26 14:33 | CRPHASE1_ITS ---
Patient Data/Charges Start Phase II:: FOLLOWING CARDIOLOGY VISIT Risk Factors/Lifestyle Smoking Status: Current every day smoker Hx Diabetes Mellitus Type 1: Yes Hx Metabolic Disorders: Yes Hx Dyslipidemia: Yes Hx Obesity: Yes Height: 5 ft 6 in - BMI 31.2 Post-Menopausal: No Stress: Home/Family Risk Factor for Sedentary Lifestyle: Highest Risk Past Cardiac Illness: Coronary Artery Disease, Other - END STAGE RENAL DISEASE, CURRENTLY ON DIALYSIS Laboratory Values: Cardiac Rehab Phase I Labs Triglycerides 131 mg/dL (-199) 02/25/18 05:30 Cholesterol 120 mg/dL (200) 02/25/18 05:30 LDL Cholesterol 56 mg/dL (0-130) 02/25/18 05:30 HDL Cholesterol 38 mg/dL (40-) L 02/25/18 05:30 Phase I Education Given On:: [place], Nutrition, Antiplatelet medication, Smoking cessation, Diabetes - Type I Issues Affecting Care:: None Knowledge of Condition:: Yes Learning Preferences: Verbal, Written Hospital Course Presenting Symptoms:: C/P Medical/Surgical History ID:: No Angina:: Yes CAD:: Yes COPD:: Yes Diabetes:: Yes Diabetes Type I:: Yes Hypertension:: Yes Dyslipidemia:: Yes Renal:: Yes - END STAGE RENAL DISEASE/ CURRENTLY ON DIALYSIS Anxiety:: Yes Discharge/Home/Social Eval Discharge Disposition: Home
--- NOTE | 2018-02-26 14:35 | CRPH1.INST_ITS ---
General Education CAD and cardiac anatomy and function:: Patient communicates acknowledgment Explanation of diagnoses and procedures:: Patient communicates acknowledgment Sign/Symptoms of MD:: Patient communicates acknowledgment Antiplatelet therapy: Patient communicates acknowledgment Proper use of NTG-SL: Patient communicates acknowledgment Emergency procedures and activation of EMS: Patient communicates acknowledgment Compliance of all prescribed medications: Patient communicates acknowledgment Smoking Patient Nicotine/Smoking Risk Factors Are:: Cigarettes Recommendations Include:: Participation in a smoking cessation program Nicotine/Smoking Response Code:: Patient communicates acknowledgment Dyslipidemia Patient Dyslipidemia Risk Factors Are:: Total Cholesterol, Triglycerides, HDL, LDL Recommendations Include:: Lipid profile provided, Reviewed NCEP/ATP guidelines, Therapeutic Lifestyle Change dietary guidelines Dyslipidemia Response Code:: Patient communicates acknowledgment Overweight/Obesity Patient Overweight/Obesity Risk Factors Are:: Obesity - > or = 30 Recommendations Include:: Weight loss of 5-10%, Reduced calorie diet, Exercise 5 -7 times/week Overweight/Obesity:: Patient communicates acknowledgment Hypertension Recommendations Include:: BP <130/80 if diabetic, DASH dietary guidelines, Decrease/maintain normal body weight, Moderation of ETOH Hypertension:: Patient communicates acknowledgment Diabetes Patient Diabetes Risk Factors Are:: Elevated blood sugars Recommendations Include:: Maintain fasting blood sugars 70-110 md/dL, Maintain HgbA1c of 6% or less, Monitor blood sugar as prescribed, Diabetic dietary guidelines, Decrease/maintain body weight Diabetes:: Patient communicates acknowledgment Metabolic Syndrome Patient Metabolic Syndrome Risk Factors Are [3 of 5]:: Fasting blood sugar > 100 mg/dL, Waist circumference > 35 [female] or 40 [male], High triglyceride > 150, Hypertension, Low HDL <40 [male] or < 50 [female] Recommendations Include:: Reinforce compliance to risk factor modifications, Patient is diabetic, Encouraged follow-up with Primary Care Physician Metabolic Syndrome Response Code:: Patient communicates acknowledgment Sedentary Patient Sedentary Risk Factors Are:: Lack of regular exercise Recommendations Include:: Aerobic exercise 5-7 times/week for 20-30 minutes continuously, Benefits of regular exercise, Discussed home walking program, Monitored Outpatient Cardiac Rehab Sedentary Response Code:: Patient communicates acknowledgment Stress Recommendations Include:: Identification of stressors, and assessment of coping skills, Stress management techniques Stress Response Code:: Patient communicates acknowledgment
--- NOTE | 2018-02-26 14:41 | PN_ITS ---
<Gael Vega - Last Filed: 02/26/18 14:36> Patient Problems: Active and Suspected Problems Chest pain (Acute) Migraine (Acute) Metabolic encephalopathy (Acute) Abnormal electrocardiogram [ECG] [EKG] (Acute) CAD (coronary artery disease) (Acute) Subjective: Seen post cath. No CP, tightness, pressure, SOB. Only complaint is posterior headache that began after receiving nitro. - Physical Exam General: Alert, Oriented x3, Cooperative HEENT: Atraumatic, PERRLA, EOMI, Normocephalic Neck: Supple, No JVD, Negative Carotid Bruits Lungs: Clear to auscultation, Normal air movement Cardiovascular: Regular rate, No murmurs Abdomen: Bowel Sounds Present, Soft, Non Tender Extremities: No edema, Capillary Refill Less than 3 Seconds Skin: No rashes, No breakdown Musculoskeletal: No Tenderness to Palpation of Joints or Extremities Neurological: Cranial nerves II-XII grossly intact Psych/Mental Status: Normal Affect, Appropriate, Alert and oriented to time, place, person, mood and affect Vital Signs Temp Pulse Resp BP Pulse Ox 97.9 F 82 16 131/77 H 98 02/26/18 05:47 02/26/18 07:24 02/26/18 05:47 02/26/18 05:47 02/26/18 14:20 Oxygen Flow Rate (L/min) 2 Oxygen Delivery Method Nasal Cannula Weight: 193 lb 5.526 oz Body Mass Index (BMI) 31.1 Intake and Output for Last 24 Hours 02/24/18 02/25/18 02/26/18 23:59 23:59 23:59 Intake Total 240 / 240 1690 / 1690 Output Total 3 / 3 Balance 240 / 240 1687 / 1687 Laboratory Tests Past 24 Hrs 02/26/18 02/26/18 02/26/18 00:55 00:55 04:16 WBC 7.2 RBC 3.88 L Hgb 12.2 Hct 40.0 MCV 103.1 H MCH 31.4 MCHC 30.5 L RDW 16.3 H RDW Differential 61.3 H Plt Count 124 L MPV 8.7 Immature Gran % (Auto) 0.000 Neut % (Auto) 73.0 H Lymph % (Auto) 17.1 L [place] % (Auto) 3.1 Eos % (Auto) 6.5 H Baso % (Auto) 0.3 Absolute Neuts (auto) 5.3 Absolute Lymphs (auto) 1.23 Total Counted Not Reportable PT INR APTT Activated Clotting Time Sodium Potassium Chloride Carbon Dioxide Anion Gap BUN Creatinine Estim Creat Clear Calc Est GFR (MDRD) Af Amer Est GFR (MDRD) Non-Af BUN/Creatinine Ratio Glucose Calcium Urine Color Yellow Urine Clarity Clear Urine pH 8.0 Ur Specific [place] 1.015 Urine Protein 100 H Urine Glucose (UA) 100 H Urine Ketones Negative Urine Occult Blood 25 H Urine Nitrite Negative Urine Bilirubin Negative Urine Urobilinogen Normal Ur Leukocyte Esterase 25 H Urine RBC 0-5 SEEN Urine WBC 0-5 SEEN Ur Squamous Epith Cells > 100 SEEN Urine Bacteria 0 SEEN Urine Mucus 0 SEEN Urine Test Negative 02/26/18 02/26/18 02/26/18 04:16 06:26 10:42 WBC RBC Hgb Hct MCV MCH MCHC RDW RDW Differential Plt Count MPV Immature Gran % (Auto) Neut % (Auto) Lymph % (Auto) [place] % (Auto) Eos % (Auto) Baso % (Auto) Absolute Neuts (auto) Absolute Lymphs (auto) Total Counted PT 13.9 INR 1.1 APTT 31.5 Activated Clotting Time 213 H Sodium 134 L Potassium 6.4 H* Chloride 100 Carbon Dioxide 28.0 Anion Gap 6 BUN 41 H Creatinine 6.48 H Estim Creat Clear Calc 10.37 Est GFR (MDRD) Af Amer 9 L Est GFR (MDRD) Non-Af 7 L BUN/Creatinine Ratio 6.3 L Glucose 177 H Calcium 8.1 L Urine Color Urine Clarity Urine pH Ur Specific [place] Urine Protein Urine Glucose (UA) Urine Ketones Urine Occult Blood Urine Nitrite Urine Bilirubin Urine Urobilinogen Ur Leukocyte Esterase Urine RBC Urine WBC Ur Squamous Epith Cells Urine Bacteria Urine Mucus Urine Test POC Glucose 02/26/18 02/26/18 02/25/18 14:11 06:42 22:02 POC Glucose 174 H 179 H 168 H 02/25/18 17:02 POC Glucose 150 H Medical Necessity - Tobacco Use Smoking Status: Current every day smoker Tobacco Use: Cigarettes Assessment/Plan All Active Problems Chest pain (Acute) Migraine (Acute) Metabolic encephalopathy (Acute) Abnormal electrocardiogram [ECG] [EKG] (Acute) CAD (coronary artery disease) (Acute) Chest pain (Acute) Tooth abscess (Resolved) Intractable nausea and vomiting (Resolved) Pneumonia (Resolved) Pulmonary edema (Resolved) Hyperkalemia (Resolved) Atypical chest pain (Resolved) Acute hypoxic respiratory failure (Resolved) Pulmonary edema (Resolved) Clostridium difficile enterocolitis (Resolved) Necrotizing myositis (Resolved) S/P repair of PDA (patent ductus arteriosus) (Resolved) Dysmenorrhea (Resolved) Hx of necrotizing fascIItis (Resolved) Iron deficiency anemia due to chronic blood loss (Resolved) Systolic congestive heart failure (Resolved) 1. Unstable angina - CAD s/p heart cath 1 stent mid LAD. Continue asa, plavix, statin, coreg, monika-i, 2. CALIXTO - started today after nitro. tylenol prn 3. Metabolic encephalopathy - resolved. CT head negative. 4. ESRD - nephrology following. Dialysis tomorrow. 5. Hyperkalemia - kayex x1 ordered. dialysis tomorrow. 6. DMt2 - on lantus, TID insulin, SSI. DVT ppx: heparin DC planning: Monitor in ICU overnight. This patient was seen by Gael Vega PA-C under the supervision of Dr. Soler. <Francois Soler E - Last Filed: 02/26/18 15:22> - Physical Exam Vital Signs Temp Pulse Resp BP Pulse Ox 97.9 F 82 16 131/77 H 98 02/26/18 05:47 02/26/18 07:24 02/26/18 05:47 02/26/18 05:47 02/26/18 14:20 Oxygen Flow Rate (L/min) 2 Oxygen Delivery Method Nasal Cannula Weight: 193 lb 5.526 oz Body Mass Index (BMI) 31.1 Intake and Output for Last 24 Hours 02/24/18 02/25/18 02/26/18 23:59 23:59 23:59 Intake Total 240 / 240 1690 / 1690 Output Total 3 / 3 Balance 240 / 240 1687 / 1687 Laboratory Tests Past 24 Hrs 02/26/18 02/26/18 02/26/18 00:55 00:55 04:16 WBC 7.2 RBC 3.88 L Hgb 12.2 Hct 40.0 MCV 103.1 H MCH 31.4 MCHC 30.5 L RDW 16.3 H RDW Differential 61.3 H Plt Count 124 L MPV 8.7 Immature Gran % (Auto) 0.000 Neut % (Auto) 73.0 H Lymph % (Auto) 17.1 L [place] % (Auto) 3.1 Eos % (Auto) 6.5 H Baso % (Auto) 0.3 Absolute Neuts (auto) 5.3 Absolute Lymphs (auto) 1.23 Total Counted Not Reportable PT INR APTT Activated Clotting Time Sodium Potassium Chloride Carbon Dioxide Anion Gap BUN Creatinine Estim Creat Clear Calc Est GFR (MDRD) Af Amer Est GFR (MDRD) Non-Af BUN/Creatinine Ratio Glucose Calcium Urine Color Yellow Urine Clarity Clear Urine pH 8.0 Ur Specific [place] 1.015 Urine Protein 100 H Urine Glucose (UA) 100 H Urine Ketones Negative Urine Occult Blood 25 H Urine Nitrite Negative Urine Bilirubin Negative Urine Urobilinogen Normal Ur Leukocyte Esterase 25 H Urine RBC 0-5 SEEN Urine WBC 0-5 SEEN Ur Squamous Epith Cells > 100 SEEN Urine Bacteria 0 SEEN Urine Mucus 0 SEEN Urine Test Negative 02/26/18 02/26/18 02/26/18 04:16 06:26 10:42 WBC RBC Hgb Hct MCV MCH MCHC RDW RDW Differential Plt Count MPV Immature Gran % (Auto) Neut % (Auto) Lymph % (Auto) [place] % (Auto) Eos % (Auto) Baso % (Auto) Absolute Neuts (auto) Absolute Lymphs (auto) Total Counted PT 13.9 INR 1.1 APTT 31.5 Activated Clotting Time 213 H Sodium 134 L Potassium 6.4 H* Chloride 100 Carbon Dioxide 28.0 Anion Gap 6 BUN 41 H Creatinine 6.48 H Estim Creat Clear Calc 10.37 Est GFR (MDRD) Af Amer 9 L Est GFR (MDRD) Non-Af 7 L BUN/Creatinine Ratio 6.3 L Glucose 177 H Calcium 8.1 L Urine Color Urine Clarity Urine pH Ur Specific [place] Urine Protein Urine Glucose (UA) Urine Ketones Urine Occult Blood Urine Nitrite Urine Bilirubin Urine Urobilinogen Ur Leukocyte Esterase Urine RBC Urine WBC Ur Squamous Epith Cells Urine Bacteria Urine Mucus Urine Test POC Glucose 02/26/18 02/26/18 02/25/18 14:11 06:42 22:02 POC Glucose 174 H 179 H 168 H 02/25/18 17:02 POC Glucose 150 H Assessment/Plan Hospitalist note: I am seeing this patient in conjunction with Gael Vega. I independently seen and examined the patient. Progress note above, laboratory data and imaging studies reviewed and I agree with above treatment plan. Patient was admitted for chest pain. She underwent cardiac catheterization with successful PTCA and drug eluting stent to mid LAD. At this time, patient had no more chest pain. She complains of low back pain which is chronic. Her vital signs are stable. - Physical Exam General: Alert, Oriented x3, Cooperative, No apparent distress. HEENT: Atraumatic, PERRLA, EOMI. Neck: Supple, No JVD, Negative Carotid Bruits, Trachea Midline, Thyroid Normal. Lungs: Clear to auscultation, Normal air movement, No rhonchi, No wheeze, No rales. Cardiovascular: Regular rate, Regular Rhythm, Normal S1, Normal S2, PMI Normal. Abdomen: Bowel Sounds Present, Soft, Non Tender, Non-Distended, No Hepato- splenomegaly. Extremities: No clubbing, No cyanosis, No edema Skin: No rashes, No breakdown Neurological: Neuro grossly intact Vital Signs are stable. Assessment and plan: #1 unstable angina, status post heart cath, status post PTCA and VIKY to mid LAD. She is on aspirin, Plavix, statins, Coreg, lisinopril and isosorbide mononitrate. Vital signs are stable. Cardiology on the case. #2 hyperkalemia: In context of history of ESRD on dialysis. This morning, potassium was 6.4. At this time, she is on hemodialysis. Plan to repeat potassium at 6 PM today. #3 other chronic medical problems: Stable, continue current medications as above. This note was generated with [employer] dictation software. It may contain incorrect words, spelling, and punctuation that were not noted in checking the note before signing. Code Visit Inpatient E&M: 26902 Subs Hosp L2
[2018-02-26] MEDS: HYDROcodone Bitartrate/Apap 5/325 Tablet PO ×2 (15:54→21:54)
[2018-02-26] MEDS: Heparin Injection (Vial) 5,000 UNIT/ML VIAL 5000 UNIT SC ×2 (15:55→21:40)
[2018-02-26 19:31] LABS: Bedside Glucose 148 mg/dL (70-110)
--- NOTE | 2018-02-26 19:40 | BH.SGPN.T2 ---
Behaviors/Verbalizations/Mental Status: [] Client Response/Progress/Benefit: [] Narrative Note: [hemodialysis completed x 3 hrs. UF 2000ml. Pt megha well. See hD flowsheet on chart for details. Pt will receive dialysis again tomorrow 02/27/18.]
[2018-02-26 21:11] LABS: Potassium 3.4 mmol/L (3.5-5.1)
[2018-02-26] MEDS: Atorvastatin Calcium 20 MG Tablet PO (21:40)
[2018-02-26 21:51] LABS: Bedside Glucose 247 mg/dL (70-110)
[2018-02-27] VITALS (17 sets, daily range): BP systolic 139–168; BP diastolic 67–86; PULSE 71–80; RESP 15–23; TEMP 36.3–36.7; O2SAT 93–99
[2018-02-27 01:11] LABS: Bedside Glucose 194 mg/dL (70-110)
[2018-02-27] MEDS: Heparin Injection (Vial) 5,000 UNIT/ML VIAL 5000 UNIT SC (05:31)
[2018-02-27 06:50] LABS: Hematocrit 38.8 % (37-47); Hemoglobin 12.3 g/dl (12.0-15.0); Mean Corp Hgb Conc 31.7 g/gl (32-36); Mean Corpuscular Hgb 32.2 pg (27.0-32.0); Mean Corpuscular Volume 101.6 fL (81-99); Mean Platelet Vol. 9.2 fl (6.2-12.0); Platelet Count 129 K/mm3 (150-450); RBC Distribution Width CV 15.8 % (11.6-14.6); RBC Distribution Width SD 58.2 fl (35.1-43.9); Red Blood Count 3.82 M/mm3 (4.2-5.4)
[2018-02-27 06:56] LABS: Anion Gap 9 (5-15); BUN 35 mg/dL (7-18); BUN/Creat Ratio 6.8 RATIO (10-20); Calcium,Total 8.1 mg/dL (8.5-10.1); Chloride 94 mmol/L (98-107); Creatinine, Serum 5.13 mg/dL (0.55-1.02); EST Glomerular Filtration Rate 10 mL/min (>60); Est Glom Filt Rate - Afr Amer 12 mL/min (>60); Glucose 194 mg/dL (74-106); Potassium 4.6 mmol/L (3.5-5.1); Scan Indicated on CBC? Y/N NO; Sodium Level 137 mmol/L (136-145)
[2018-02-27 07:00] LABS: Bedside Glucose 203 mg/dL (70-110)
[2018-02-27] MEDS: Ondansetron ODT 4 MG Tablet PO (08:02)
[2018-02-27] MEDS: HYDROcodone Bitartrate/Apap 5/325 Tablet PO (08:02)
[2018-02-27] MEDS: Insulin Lispro 100 UNIT/ML INSULN.PEN 10 UNIT SC (08:15)
[2018-02-27] MEDS: Insulin Lispro 100 UNIT/ML INSULN.PEN SQ (08:15)
--- NOTE | 2018-02-27 08:57 | DCINST_ITS ---
- Discharge Diagnoses Current Active Problems: Current Active and Chronic Problems Chest pain (Acute) Migraine (Acute) Metabolic encephalopathy (Acute) Abnormal electrocardiogram [ECG] [EKG] (Acute) CAD (coronary artery disease) (Acute) You will use the following diet at home:: Calorie/Carbohydrate Controlled ( specify 1200, 1400, etc) - 1800 bridger, Cardiac, Renal (restricted protein/sodium) Your food should be the consistency of: Regular Discharge Activity: Return to Normal Activity Weight Bearing Status: Weight bearing as tolerated Call your doctor if you observe: Fever of 101 or Higher, Shortness of breath, Dizziness, Fainting spells, Chest pain, Increased palpitations (irregular heartbeat), Uncontrolled pain Allergies/Adverse Reactions: Allergies latex Allergy (Verified 02/08/18 14:54) Rash levofloxacin [From Levaquin] Adverse Reaction (Verified 02/08/18 14:54) PT CAN'T REMEMBER PT CAN'T REMEMBER metoclopramide HCl [From Reglan] Adverse Reaction (Verified 02/08/18 14:54) Nausea NSAIDS (Non-Steroidal Anti-Inflamma Adverse Reaction (Verified 02/08/18 14:54) kidney function oxycodone HCl [From Percocet] Adverse Reaction (Verified 02/08/18 14:54) HALLUCINATIONS Medications to take at Discharge Aspirin [Aspirin, Baby] 81 mg PO DAILY@0800 01/26/16 Calcium Acetate [Phoslo Gel Cap] 1,334 mg PO TIDCM 01/26/16 Ergocalciferol [Vitamin D] 50,000 unit PO FR 01/26/16 Insulin Aspart [Novolog Flexpen] 10 units SC TIDCM 01/26/16 Insulin Glargine,Hum.rec.anlog [Lantus] 5 unit SQ QHS 01/09/17 proMETHazine tablet [Phenergan tablet] 25 mg PO Q6H PRN PRN #10 tablet 03/06/17 Lisinopril 20 mg PO DAILY 03/29/17 Sodium Bicarbonate 650 mg PO TUTHSA 03/29/17 Carvedilol [Coreg (Beta Chang)] 25 mg PO BID 06/17/17 Fluoxetine HCl 40 mg PO DAILY 09/02/17 ALPRAZolam [Xanax] 0.5 mg PO DAILY 11/21/17 Ondansetron [Zofran Odt] 4 mg PO Q8H PRN PRN #10 tablet 01/27/18 Atorvastatin Calcium 20 mg PO QHS 02/08/18 Dicyclomine HCl [Bentyl] 20 mg PO 4X/DAY PRN PRN 02/08/18 Isosorbide DN [Isordil] 60 mg PO DAILY 02/08/18 Naproxen 500 mg PO BID PRN PRN 02/08/18 Omeprazole Magnesium [Prilosec Otc] 20 mg PO DAILY 02/08/18 Clopidogrel Bisulfate [Plavix] 75 mg PO DAILY #90 tab 02/27/18 The following prescriptions were given: Clopidogrel Bisulfate [Plavix] 75 mg PO DAILY #90 tab Primary Care Physician: Christopher Foy MD [Primary Care Provider] - Please follow up with your Primary Care Physician in: 1 week. Test Results: Test results from this visit will be discussed in further detail at your follow- up appointment, if applicable. Please Follow Up With: Ryan Green MD When: please call his office.
--- NOTE | 2018-02-27 09:55 | PCM.PN.CARD ---
Subjectve: Patient doing very well this morning, and in fact feels much better since her angioplasty and stenting of her LAD last evening. She underwent hemodialysis yesterday without complications and is undergoing hemodialysis again this morning. Telemetry is negative overnight. Her EKG shows normal sinus rhythm with resolving anterolateral T-wave inversion. Hemoglobin is stable. Creatinine is reflective of her end-stage renal disease. Objective: Vital Signs Temp Pulse Resp BP Pulse Ox 97.4 F L 76 16 163/82 H 94 02/27/18 04:00 02/27/18 09:00 02/27/18 09:00 02/27/18 09:00 02/27/18 09:00 Oxygen Flow Rate (L/min) 2 Oxygen Delivery Method Room Air Weight: 195 lb 1.745 oz Body Mass Index (BMI) 31.1 Intake and Output for Last 24 Hours 02/25/18 02/26/18 02/27/18 23:59 23:59 23:59 Intake Total 1690 / 1690 1250 / 1250 120 / 120 Output Total 2225 / 2225 200 / 200 Balance 1687 / 1687 -975 / -975 -80 / -80 General: Awake, Alert, Oriented x 3 HEENT: PERRL, EOMI, Sclera Non Icteric Neck: Supple, Good ROM, No Lymph Node Enlargement Lungs: Clear to auscultation Cardiovascular: Regular Rhythm, Normal S1, Normal S2, No Murmurs, No Rubs, No Gallops Vascular: No Carotid Bruits, Normal Femoral Pulses, Normal Radial Pulses, Normal Dorsalis Pedal Pulse, Normal Posterior Tibial Pulses Abdomen: Bowel Sounds Present, Soft, Non Tender, No HSM, No Organomegaly Extremities: No Cyanosis, No Clubbing, No edema Neurological: No Focal Motor or Sensory Deficit 02/26/18 20:40: Potassium 3.4 L 02/27/18 06:30: Sodium 137, Potassium 4.6, Chloride 94 L, Carbon Dioxide 34.0 H, Anion Gap 9, BUN 35 H, Creatinine 5.13 H, Est GFR (MDRD) Af Amer 12 L, Est GFR (MDRD) Non-Af 10 L, BUN/Creatinine Ratio 6.8 L, Glucose 194 H, Calcium 8.1 L 02/27/18 06:30: WBC 6.0, RBC 3.82 L, Hgb 12.3, Hct 38.8, MCV 101.6 H, MCH 32.2 H, MCHC 31.7 L, RDW 15.8 H, RDW Differential 58.2 H, Plt Count 129 L, MPV 9.2 Rhythm: EKG: ECHO: Stress Test: Cardiac Cath: PCI: CT Surgery: Holter monitor: EPS: PPM: CXR: Chest CT Scan: Medical Necessity - Tobacco Use Smoking Status: Current every day smoker Tobacco Use: Cigarettes Assessment/Plan #1. Coronary artery disease: Patient underwent successful flow wire guided angioplasty and drug-eluting stenting of her mid LAD yesterday, and is feeling much better. Her EKG is normalizing, and her blood pressure is optimized as well. I recommended medical management of the midportion of her obtuse marginal #1, unless and until the patient has recurrent chest pain symptoms that may require flow wire evaluation of that vessel. Nitroglycerin enhancement of that vessel did not show a significant lesion by angiographic measures. Her right groin is clean/dry/intact, and has no thrills, hematomas or bruits. She is status post minx procedure for closure. Patient may be discharged home after hemodialysis is completed, and follow-up with me going forward. In the meantime she will continue baby aspirin, Plavix, losartan, and Coreg. 2. Hyperlipidemia: Continue atorvastatin. 3. Patient may be discharged home and follow-up with Dr. Magdaleno going forward. Thank you very much for the opportunity to participate in the cardiac care of your patient. Code Visit Inpatient E&M: 25152 Subs Hosp L2
--- NOTE | 2018-02-27 09:59 | PN.CARD_ITS ---
Subjectve: Patient doing very well this morning, and in fact feels much better since her angioplasty and stenting of her LAD last evening. She underwent hemodialysis yesterday without complications and is undergoing hemodialysis again this morning. Telemetry is negative overnight. Her EKG shows normal sinus rhythm with resolving anterolateral T-wave inversion. Hemoglobin is stable. Creatinine is reflective of her end-stage renal disease. Objective: Vital Signs Temp Pulse Resp BP Pulse Ox 97.4 F L 76 16 163/82 H 94 02/27/18 04:00 02/27/18 09:00 02/27/18 09:00 02/27/18 09:00 02/27/18 09:00 Oxygen Flow Rate (L/min) 2 Oxygen Delivery Method Room Air Weight: 195 lb 1.745 oz Body Mass Index (BMI) 31.1 Intake and Output for Last 24 Hours 02/25/18 02/26/18 02/27/18 23:59 23:59 23:59 Intake Total 1690 / 1690 1250 / 1250 120 / 120 Output Total 2225 / 2225 200 / 200 Balance 1687 / 1687 -975 / -975 -80 / -80 General: Awake, Alert, Oriented x 3 HEENT: PERRL, EOMI, Sclera Non Icteric Neck: Supple, Good ROM, No Lymph Node Enlargement Lungs: Clear to auscultation Cardiovascular: Regular Rhythm, Normal S1, Normal S2, No Murmurs, No Rubs, No Gallops Vascular: No Carotid Bruits, Normal Femoral Pulses, Normal Radial Pulses, Normal Dorsalis Pedal Pulse, Normal Posterior Tibial Pulses Abdomen: Bowel Sounds Present, Soft, Non Tender, No HSM, No Organomegaly Extremities: No Cyanosis, No Clubbing, No edema Neurological: No Focal Motor or Sensory Deficit 02/26/18 20:40: Potassium 3.4 L 02/27/18 06:30: Sodium 137, Potassium 4.6, Chloride 94 L, Carbon Dioxide 34.0 H , Anion Gap 9, BUN 35 H, Creatinine 5.13 H, Est GFR (MDRD) Af Amer 12 L, Est GFR (MDRD) Non-Af 10 L, BUN/Creatinine Ratio 6.8 L, Glucose 194 H, Calcium 8.1 L 02/27/18 06:30: WBC 6.0, RBC 3.82 L, Hgb 12.3, Hct 38.8, MCV 101.6 H, MCH 32.2 H , MCHC 31.7 L, RDW 15.8 H, RDW Differential 58.2 H, Plt Count 129 L, MPV 9.2 Rhythm: EKG: ECHO: Stress Test: Cardiac Cath: PCI: CT Surgery: Holter monitor: EPS: PPM: CXR: Chest CT Scan: Medical Necessity - Tobacco Use Smoking Status: Current every day smoker Tobacco Use: Cigarettes Assessment/Plan #1. Coronary artery disease: Patient underwent successful flow wire guided angioplasty and drug-eluting stenting of her mid LAD yesterday, and is feeling much better. Her EKG is normalizing, and her blood pressure is optimized as well. I recommended medical management of the midportion of her obtuse marginal #1, unless and until the patient has recurrent chest pain symptoms that may require flow wire evaluation of that vessel. Nitroglycerin enhancement of that vessel did not show a significant lesion by angiographic measures. Her right groin is clean/dry/intact, and has no thrills, hematomas or bruits. She is status post minx procedure for closure. Patient may be discharged home after hemodialysis is completed, and follow-up with me going forward. In the meantime she will continue baby aspirin, Plavix, losartan, and Coreg. 2. Hyperlipidemia: Continue atorvastatin. 3. Patient may be discharged home and follow-up with Dr. Magdaleno going forward. Thank you very much for the opportunity to participate in the cardiac care of your patient. Code Visit Inpatient E&M: 64357 Subs Hosp L2
--- NOTE | 2018-02-27 10:00 | EKG12_ITS ---
Test Reason : AM EKG Blood Pressure : / mmHG Vent. Rate : 075 BPM Atrial Rate : 075 BPM P-R Int : 146 ms QRS Dur : 094 ms QT Int : 418 ms P-R-T Axes : 039 046 141 degrees QTc Int : 466 ms Normal sinus rhythm Poor R wave progression Left ventricular hypertrophy Nonspecific T wave abnormality Prolonged QT Abnormal ECG Confirmed by CHEPE BEASLEY, KAITLYNN ([id number]), video tape editor SHANIA SOLITARIO ([id number] on 03/02/2018 2:25:27 PM Referred By: YASMINE Confirmed By:KAITLYNN MO MD
--- NOTE | 2018-02-27 11:20 | DIALYSIS ---
Hemodialysis x 2 hours completed. Pt tolerated tx well. Fluid balance -1000ml. [place] pulled. Hemostasis achieved. Dressing applied. Report given to MALLORY Castellano. Pt stable
[2018-02-27] MEDS: Calcium Acetate 667 MG Capsule 1334 MG PO (11:26)
[2018-02-27] MEDS: Carvedilol 25 MG Tablet PO (11:26)
[2018-02-27] MEDS: Isosorbide Mononitrate 60 MG Tablet PO (11:26)
[2018-02-27] MEDS: Clopidogrel Bisulfate 75 MG Tablet PO (11:26)
[2018-02-27] MEDS: Lisinopril 20 MG Tablet PO (11:26)
[2018-02-27] MEDS: FLUoxetine 20 MG Capsule 40 MG PO (11:26)
[2018-02-27] MEDS: Aspirin 81 MG TAB.CHEW PO (11:27)
[2018-02-27] MEDS: Pantoprazole Sodium 20 MG Tablet PO (11:27)
[2018-02-27] MEDS: Sodium Bicarbonate 650 MG Tablet PO (11:27)
[2018-02-27 11:41] LABS: Bedside Glucose 79 mg/dL (70-110)
--- NOTE | 2018-02-27 11:55 | NURSING ---
CALLED [facility] AND LEFT MESSAGE THAT SHE HAS A CARDIOLOGY FOLLOW UP APPT ON 03/13 @ 11 AM. ALSO SPOKE WITH BOYFRIEND AND TOLD HIM ABOUT THE APPOINTMENT ON MondayFebruary AT 11 AM.
--- NOTE | 2018-02-27 13:13 | PCM.DC.SUM ---
Discharge Date and Diagnosis Date of Admission: 02/24/18 Date of Discharge: 02/27/18 - Primary Discharge Diagnosis #1 unstable angina, status post cardiac catheterization, post PTCA and VIKY to mid LAD. #2 hyperkalemia. - Secondary Discharge Diagnosis Chronic Problems (Last Updated 02/27/18 @ 10:29 by Pricila Olson) Stented coronary artery (Chronic 02/26/18) FFR of LAD 0.82; VIKY of mid LAD with 2.5 X 24 mm Promus Synergy, OM <50% stenosis per Dr. Magdaleno @ [facility] Atherosclerotic heart disease of [place] coronary artery without angina pectoris (Chronic) FFR of LAD 0.82; VIKY of mid LAD with 2.5 X 24 mm Promus Synergy, OM <50% stenosis per Dr. Magdaleno @ [facility] ESRD (end stage renal disease) on dialysis (Chronic) Decubitus ulcer, stage III (Chronic) Anemia, chronic disease (Chronic) Pilonidal cyst with abscess (Chronic) GABRIEL (obstructive sleep apnea) (Chronic) Depression (Chronic) Anxiety (Chronic) HTN (hypertension) (Chronic) Nonischemic cardiomyopathy (Chronic) With ejection fraction 45 - 50%; with angiographically normal coronary arteries 05/2013; follows up with Dr. Magdaleno Diabetes mellitus type 1 (Chronic) Hyperlipidemia (Chronic) Obesity (BMI 30.0-34.9) (Chronic) Gastroparesis (Chronic) Hospital Course and Treatment Imaging Results: Clinical Impression(s) from Imaging Studies Brain CT 02/24/18 15:13 IMPRESSION: Normal unenhanced CT scan of the brain and unchanged since 06/08/2017. Electronically Signed: Woodrow Sun MD at 15:51 EDT , Service support , Chest X-Ray 02/24/18 15:27 IMPRESSION: No acute cardiopulmonary abnormalities. Electronically Signed: Anila Le MD at 16:18 EDT Tel Direct: [phone], Service support , Dr. Magdaleno, cardiology. Operations: None Procedures: Cardiac catheterization, EKG Summary of Care Provided: Patient seen and examined on the day of discharge and appeared to be stable to be discharged home. She denies any more chest pain or shortness of breath. Her vital signs are stable. - Physical Exam General: Alert, Oriented x3, Cooperative, No apparent distress. HEENT: Atraumatic, PERRLA, EOMI. Neck: Supple, No JVD, Negative Carotid Bruits, Trachea Midline, Thyroid Normal. Lungs: Clear to auscultation, Normal air movement, No rhonchi, No wheeze, No rales. Cardiovascular: Regular rate, Regular Rhythm, Normal S1, Normal S2, PMI Normal. Abdomen: Bowel Sounds Present, Soft, Non Tender, Non-Distended, No Hepato-splenomegaly. Extremities: No clubbing, No cyanosis, No edema Skin: No rashes, No breakdown Neurological: Neuro grossly intact Vital Signs are stable. Hospital course: The patient is a 42 year old F admitted because of chest pain, found to have unstable angina. She underwent cardiac catheterization, found to have single-vessel CAD of the mid LAD, status post PTCA and VIKY to mid LAD. She was treated with aspirin, statins, Plavix, beta blockers, lisinopril and isosorbide mononitrate. She was found to have hyperkalemia and her potassium was up to 6.4. She is a dialysis patient and she underwent hemodialysis on 2 successive days and her potassium returned back to normal. Her routine blood work was unremarkable and at her baseline except for high potassium which resolved after hemodialysis. On admission, she complained of severe headache for which CT scan brain done and showed no acute hemorrhage or stroke. Her vital signs were stable and her blood pressure was under reasonable control. Blood sugar was stable. Patient discharged home in stable medical condition, discharged on Plavix, continued on aspirin, statins, beta blockers and CAM inhibitors as well as nitrates, recommended follow-up with PCP in 1 week and follow-up with cardiology according to Dr. Green recommendation. Recommended to continue hemodialysis according to her regular schedule. Discharge Activity: Return to Normal Activity Weight Bearing Status: Weight bearing as tolerated Call your doctor if you observe: Fever of 101 or Higher, Shortness of breath, Dizziness, Fainting spells, Chest pain, Increased palpitations (irregular heartbeat), Uncontrolled pain Home Medications: Medications to take at Discharge Aspirin [Aspirin, Baby] 81 mg PO DAILY@0800 01/26/16 Calcium Acetate [Phoslo Gel Cap] 1,334 mg PO TIDCM 01/26/16 Ergocalciferol [Vitamin D] 50,000 unit PO FR 01/26/16 Insulin Aspart [Novolog Flexpen] 10 units SC TIDCM 01/26/16 Insulin Glargine,Hum.rec.anlog [Lantus] 5 unit SQ QHS 01/09/17 proMETHazine tablet [Phenergan tablet] 25 mg PO Q6H PRN PRN #10 tablet 03/06/17 Lisinopril 20 mg PO DAILY 03/29/17 Sodium Bicarbonate 650 mg PO TUTHSA 03/29/17 Carvedilol [Coreg (Beta Chang)] 25 mg PO BID 06/17/17 Fluoxetine HCl 40 mg PO DAILY 09/02/17 ALPRAZolam [Xanax] 0.5 mg PO DAILY 11/21/17 Ondansetron [Zofran Odt] 4 mg PO Q8H PRN PRN #10 tablet 01/27/18 Atorvastatin Calcium 20 mg PO QHS 02/08/18 Dicyclomine HCl [Bentyl] 20 mg PO 4X/DAY PRN PRN 02/08/18 Isosorbide DN [Isordil] 60 mg PO DAILY 02/08/18 Naproxen 500 mg PO BID PRN PRN 02/08/18 Omeprazole Magnesium [Prilosec Otc] 20 mg PO DAILY 02/08/18 Clopidogrel Bisulfate [Plavix] 75 mg PO DAILY #90 tab 02/27/18 Following Prescrptions Were Given to Patient: Clopidogrel Bisulfate [Plavix] 75 mg PO DAILY #90 tab Other Amb Orders: Phase II, Outpatient Cardiac Rehab Location: None Selected Primary Care Physician: Christopher Foy MD [Primary Care Provider] - Please follow up with your Primary Care Physician in: 1 week. Please Follow Up With: Ryan Green MD When: please call his office. Disposition: Home Minutes spent on discharge:: 32 Patient Condition:: Stable Medical Necessity - Tobacco Use Smoking Status: Current every day smoker Tobacco Use: Cigarettes Meaningful Use Info Meaningful Use Diagnoses (Choose all that apply): None applicable Code Visit Inpatient E&M: 48919 Disch Hosp
--- NOTE | 2018-02-27 13:19 | DS.PCM_ITS ---
Discharge Date and Diagnosis Date of Admission: 02/24/18 Date of Discharge: 02/27/18 - Primary Discharge Diagnosis #1 unstable angina, status post cardiac catheterization, post PTCA and VIKY to mid LAD. #2 hyperkalemia. - Secondary Discharge Diagnosis Chronic Problems (Last Updated 02/27/18 @ 10:29 by Pricila Olson) Stented coronary artery (Chronic 02/26/18) FFR of LAD 0.82; VIKY of mid LAD with 2.5 X 24 mm Promus Synergy, OM <50% stenosis per Dr. Magdaleno @ [facility] Atherosclerotic heart disease of [place] coronary artery without angina pectoris (Chronic) FFR of LAD 0.82; VIKY of mid LAD with 2.5 X 24 mm Promus Synergy, OM <50% stenosis per Dr. Magdaleno @ [facility] ESRD (end stage renal disease) on dialysis (Chronic) Decubitus ulcer, stage III (Chronic) Anemia, chronic disease (Chronic) Pilonidal cyst with abscess (Chronic) GABRIEL (obstructive sleep apnea) (Chronic) Depression (Chronic) Anxiety (Chronic) HTN (hypertension) (Chronic) Nonischemic cardiomyopathy (Chronic) With ejection fraction 45 - 50%; with angiographically normal coronary arteries 05/2013; follows up with Dr. Magdaleno Diabetes mellitus type 1 (Chronic) Hyperlipidemia (Chronic) Obesity (BMI 30.0-34.9) (Chronic) Gastroparesis (Chronic) Hospital Course and Treatment Imaging Results: Clinical Impression(s) from Imaging Studies Brain CT 02/24/18 15:13 IMPRESSION: Normal unenhanced CT scan of the brain and unchanged since 06/08/2017. Electronically Signed: Woodrow Sun MD at 15:51 EDT , Service support , Chest X-Ray 02/24/18 15:27 IMPRESSION: No acute cardiopulmonary abnormalities. Electronically Signed: Anila Le MD at 16:18 EDT Tel Direct: [phone], Service support , Dr. Magdaleno, cardiology. Operations: None Procedures: Cardiac catheterization, EKG Summary of Care Provided: Patient seen and examined on the day of discharge and appeared to be stable to be discharged home. She denies any more chest pain or shortness of breath. Her vital signs are stable. - Physical Exam General: Alert, Oriented x3, Cooperative, No apparent distress. HEENT: Atraumatic, PERRLA, EOMI. Neck: Supple, No JVD, Negative Carotid Bruits, Trachea Midline, Thyroid Normal. Lungs: Clear to auscultation, Normal air movement, No rhonchi, No wheeze, No rales. Cardiovascular: Regular rate, Regular Rhythm, Normal S1, Normal S2, PMI Normal. Abdomen: Bowel Sounds Present, Soft, Non Tender, Non-Distended, No Hepato- splenomegaly. Extremities: No clubbing, No cyanosis, No edema Skin: No rashes, No breakdown Neurological: Neuro grossly intact Vital Signs are stable. Hospital course: The patient is a 42 year old F admitted because of chest pain, found to have unstable angina. She underwent cardiac catheterization, found to have single- vessel CAD of the mid LAD, status post PTCA and VIKY to mid LAD. She was treated with aspirin, statins, Plavix, beta blockers, lisinopril and isosorbide mononitrate. She was found to have hyperkalemia and her potassium was up to 6.4. She is a dialysis patient and she underwent hemodialysis on 2 successive days and her potassium returned back to normal. Her routine blood work was unremarkable and at her baseline except for high potassium which resolved after hemodialysis. On admission, she complained of severe headache for which CT scan brain done and showed no acute hemorrhage or stroke. Her vital signs were stable and her blood pressure was under reasonable control. Blood sugar was stable. Patient discharged home in stable medical condition, discharged on Plavix, continued on aspirin, statins, beta blockers and CAM inhibitors as well as nitrates, recommended follow-up with PCP in 1 week and follow-up with cardiology according to Dr. Green recommendation. Recommended to continue hemodialysis according to her regular schedule. Discharge Activity: Return to Normal Activity Weight Bearing Status: Weight bearing as tolerated Call your doctor if you observe: Fever of 101 or Higher, Shortness of breath, Dizziness, Fainting spells, Chest pain, Increased palpitations (irregular heartbeat), Uncontrolled pain Home Medications: Medications to take at Discharge Aspirin [Aspirin, Baby] 81 mg PO DAILY@0800 01/26/16 Calcium Acetate [Phoslo Gel Cap] 1,334 mg PO TIDCM 01/26/16 Ergocalciferol [Vitamin D] 50,000 unit PO FR 01/26/16 Insulin Aspart [Novolog Flexpen] 10 units SC TIDCM 01/26/16 Insulin Glargine,Hum.rec.anlog [Lantus] 5 unit SQ QHS 01/09/17 proMETHazine tablet [Phenergan tablet] 25 mg PO Q6H PRN PRN #10 tablet 03/06/17 Lisinopril 20 mg PO DAILY 03/29/17 Sodium Bicarbonate 650 mg PO TUTHSA 03/29/17 Carvedilol [Coreg (Beta Chang)] 25 mg PO BID 06/17/17 Fluoxetine HCl 40 mg PO DAILY 09/02/17 ALPRAZolam [Xanax] 0.5 mg PO DAILY 11/21/17 Ondansetron [Zofran Odt] 4 mg PO Q8H PRN PRN #10 tablet 01/27/18 Atorvastatin Calcium 20 mg PO QHS 02/08/18 Dicyclomine HCl [Bentyl] 20 mg PO 4X/DAY PRN PRN 02/08/18 Isosorbide DN [Isordil] 60 mg PO DAILY 02/08/18 Naproxen 500 mg PO BID PRN PRN 02/08/18 Omeprazole Magnesium [Prilosec Otc] 20 mg PO DAILY 02/08/18 Clopidogrel Bisulfate [Plavix] 75 mg PO DAILY #90 tab 02/27/18 Following Prescrptions Were Given to Patient: Clopidogrel Bisulfate [Plavix] 75 mg PO DAILY #90 tab Other Amb Orders: Phase II, Outpatient Cardiac Rehab Location: None Selected Primary Care Physician: Christopher Foy MD [Primary Care Provider] - Please follow up with your Primary Care Physician in: 1 week. Please Follow Up With: Ryan Green MD When: please call his office. Disposition: Home Minutes spent on discharge:: 32 Patient Condition:: Stable Medical Necessity - Tobacco Use Smoking Status: Current every day smoker Tobacco Use: Cigarettes Meaningful Use Info Meaningful Use Diagnoses (Choose all that apply): None applicable Code Visit Inpatient E&M: 09561 Disch Hosp
== END 2018-02-27 11:50 | disposition home or self-care (01) | DRG 246 ==
LOC: ED 17:42 → PCU 02-26 07:07 → ICU 02-26 12:15
PROVIDERS: Family Medicine; Internal Medicine Cardiovascular Disease; Physician Assistant; Emergency Provider Emergency Medicine; Family Provider Family Medicine; PCP Family Medicine; Visit Provider Hospitalist
DX: I25.110 Atherosclerotic heart disease of native coronary artery with unstable angina pectoris (principal); N18.6 End stage renal disease; G93.41 Metabolic encephalopathy; I13.2 Hypertensive heart and chronic kidney disease with heart failure and with stage 5 chronic kidney disease, or end stage renal disease; I50.22 Chronic systolic (congestive) heart failure; E87.5 Hyperkalemia; E10.22 Type 1 diabetes mellitus with diabetic chronic kidney disease; Z99.2 Dependence on renal dialysis; E78.5 Hyperlipidemia, unspecified; G47.33 Obstructive sleep apnea (adult) (pediatric); E66.9 Obesity, unspecified; Z68.31 Body mass index [BMI] 31.0-31.9, adult; Z71.3 Dietary counseling and surveillance; F32.9 Major depressive disorder, single episode, unspecified; F41.9 Anxiety disorder, unspecified; F17.210 Nicotine dependence, cigarettes, uncomplicated; E87.6 Hypokalemia; E10.43 Type 1 diabetes mellitus with diabetic autonomic (poly)neuropathy; K31.84 Gastroparesis; G43.909 Migraine, unspecified, not intractable, without status migrainosus; D63.8 Anemia in other chronic diseases classified elsewhere; Z93.3 Colostomy status
CPT/HCPCS: 36415; 70450; 71046; 80048; 80053; 80061; 81001; 81025; 82962; 84132; 84484; 85025; 85027; 85347; 85610; 85730; 87086; 90937; 92928; 93005; 93458; 97802; 99285; 99406; C1760; J0153; J7030; Q9967; A4216; C1725; C1769; C1874; C1887; C1894; C9600; G0257; J2405

== ENCOUNTER 2018-02-28 10:06 | Observation (INO) | payer MEDICARE, MEDICAID, SELFPAY ==
[2018-02-28] VITALS (9 sets, daily range): BP systolic 119–179; BP diastolic 67–83; PULSE 66–88; RESP 11–26; TEMP 36.2–36.7; O2SAT 93–98; BMI 31.3; BMI 31.4; BMI 31.5
--- NOTE | 2018-02-28 10:35 | RAD_ITS ---
STUDY: X-RAY CHEST REASON FOR EXAM: Female, 42 years old. Dizziness and vomiting. Onset yesterday after discharge from ICU. Stent placement February 26. TECHNIQUE: Portable chest COMPARISON: None 02/24/2018. FINDINGS: The lungs are clear and expanded. Normal cardiomediastinal silhouette, latrell and pleural margins. No acute osseous or upper abdominal process. RAD/Chest 1 View IMPRESSION: No acute cardiopulmonary process. Electronically Signed: Jhon Tierney, at 11:45 EDT Tel , Service support ,
--- NOTE | 2018-02-28 10:35 | EKG12_ITS ---
Test Reason : SP PCI Blood Pressure : / mmHG Vent. Rate : 075 BPM Atrial Rate : 075 BPM P-R Int : 164 ms QRS Dur : 104 ms QT Int : 432 ms P-R-T Axes : 044 047 105 degrees QTc Int : 482 ms Normal sinus rhythm Nonspecific T wave abnormality Prolonged QT Abnormal ECG Confirmed by CHEPE BEASLEY, KAITLYNN ([id number]), medical transcription editor SHANIA SOLITARIO ([id number]) on 03/02/2018 2:47:07 PM Referred By: YASMINE Confirmed By:KAITLYNN MO MD
--- NOTE | 2018-02-28 10:35 | CT_ITS ---
STUDY: CT BRAIN WITHOUT CONTRAST REASON FOR EXAM: Female, 42 years old. Dizziness and nausea today, dialysis d/t renal failure, diabetes, hypertension.. RADIATION DOSAGE (If Supplied By Facility): CTDIvol = ( 44.99 ) mGy, DLP = ( 779.24 ) mGycm TECHNIQUE: Transaxial CT imaging of the brain was performed without administration of intravenous contrast material. Individualized dose optimization techniques were used for this CT. COMPARISON: None. FINDINGS: Normal soft tissue structures. Normal calvarium. Normal size ventricles and extra-axial spaces for the patient's age. Normal white matter tracts of the cerebral hemispheres. Normal basal ganglia and thalami. Normal brainstem. Normal cerebellum. There is no intracranial hemorrhage. There are no findings of an acute ischemic infarction. Normal visualized paranasal sinuses. CT/Brain/Head without Contrast IMPRESSION: Normal unenhanced CT scan of the brain. Electronically Signed: Nallely Pinto MD at 11:08 EDT Tel , Service support ,
[2018-02-28 10:51] LABS: Absolute Lymphocyte Count 0.85 X10^3/ul (0.83-4.51); Absolute Neutrophil Count 7.9 X10^3/uL (2.0-7.7); Basophil# 0.02 X10^3/uL; Basophil% 0.2 % (0-1); Eosinophil# 0.17 X10^3/uL; Eosinophils% 1.8 % (0-5); Hematocrit 40.7 % (37-47); Hemoglobin 12.7 g/dl (12.0-15.0); Lymphocyte # 0.85 X10^3/ul (4.0); Lymphocyte % 9.2 % (19-41); Mean Corp Hgb Conc 31.2 g/gl (32-36); Mean Corpuscular Hgb 31.6 pg (27.0-32.0); Mean Corpuscular Volume 101.2 fL (81-99); Mean Platelet Vol. 9.3 fl (6.2-12.0); Monocyte# 0.26 X10^3/uL; Monocyte% 2.8 % (0-10); Neutrophil # 7.92 X10^3/uL (2.7-7.7); POSITIVE COUNT NO; POSITIVE DIFFERENTIAL NO; POSITIVE MORPHOLOGY NO; Platelet Count 102 K/mm3 (150-450); RBC Distribution Width CV 16.1 % (11.6-14.6); RBC Distribution Width SD 59.7 fl (35.1-43.9); Red Blood Count 4.02 M/mm3 (4.2-5.4); White Blood Count 9.2 K/mm3 (4.4-11.0)
[2018-02-28] MEDS: Ondansetron 4 MG/2 ML Vial IV ×2 (11:04→15:32)
[2018-02-28 11:20] LABS: AST(SGOT) 48 U/L (15-37); Alanine Aminotransfer ALT/SGPT 25 U/L (13-56); Albumin, Serum 3.2 g/dL (3.2-5.0); Alkaline Phosphatase 90 U/L (45-117); Anion Gap 9 (5-15); BUN 34 mg/dL (7-18); BUN/Creat Ratio 5.8 RATIO (10-20); Bilirubin, Direct 0.05 mg/dL (0.00-0.30); Chloride 97 mmol/L (98-107); Creatinine, Serum 5.82 mg/dL (0.55-1.02); EST Glomerular Filtration Rate 8 mL/min (>60); Est Glom Filt Rate - Afr Amer 10 mL/min (>60); Estimated Creatinine Clearance 11.55 ml/min; Globulin 5.2 g/dL (2.2-4.2); Glucose 197 mg/dL (74-106); Lipase 164 U/L (73-393); Potassium 6.2 mmol/L (3.5-5.1); Protein, Total 8.4 g/dL (6.4-8.2); Sodium Level 134 mmol/L (136-145)
[2018-02-28] MEDS: fentaNYL 100 MCG/2 ML Ampul 50 MCG IV (11:36)
[2018-02-28 11:54] LABS: International Normalized Ratio 1.1
[2018-02-28 11:55] LABS: Partial Thromboplast Time 28.4 Seconds (24.1-36.2)
--- NOTE | 2018-02-28 12:46 | ED.VISSUMM ---
- ER Visit Summary Date of Service: 02/28/18 Chief Complaint: Dizzy History of Present Illness: The patient is a 42 F that presents from home for dizziness. She had a cardiac catheterization with stent placement by Dr. Magdaleno 2 days ago. She did fine afterwards. She had dialysis in the hospital yesterday and 2 days ago. She was discharged home yesterday. When she got home, she felt dizzy. She describes both a spinning sensation and lightheadedness. She also feels unstable on her feet. This is a new symptom for her. She reports some associated nausea and vomiting and a headache. No vision changes, speech changes, facial droop, or focal weakness. Patient has a history of coronary disease, diabetes, hypertension, hyperlipidemia, end-stage renal disease, hyperkalemia, pulmonary edema, C. difficile, obstructive sleep apnea, cardiomyopathy, gastroparesis, and others. Physical Examination: Blood pressure unremarkable. Vital signs unremarkable. Afebrile. Patient appears uncomfortable but not in any acute distress. Head and neck atraumatic. Neck nontender. Heart regular. Lungs clear. Abdomen shows mild epigastric tenderness, but no guarding or rebound. Left upper extremity fistula is normal. Extremities atraumatic and unremarkable. Cranial nerves grossly unremarkable. No focal weakness or numbness. NIH is 0. Test Results: EKG showed sinus rhythm with stable T-wave changes. No sign of acute ischemia or infarction. CBC normal except for a stable thrombocytopenia. Potassium 6.2 and glucose 197. BUN and creatinine reflect her chronic end-stage renal disease. Liver panel and lipase unremarkable. Coags and troponin normal. Chest x-ray showed no acute process. CT head showed no acute process. Emergency Department Course and Treatment: Patient was placed on a monitor. She received fluids, Zofran, and pain medicine. She felt better afterwards. She was treated with calcium, Kayexalate, D50, and insulin for her hyperkalemia. Patient was discussed with Dr. Magdaleno. He had no further recommendations. He did not feel that cardiac consultation was indicated. I spoke with the hospitalist who will admit for further care. Patient is stable on my reevaluation. Treatment Plan: As above Disposition: Admission Impression: 1. Dizziness 2. Hyperkalemia This note was generated with Lumi[employer]ation software. It may contain incorrect words, spelling, and punctuation that were not noted in review of the chart prior to signing ED Disposition - Plan for ED Patient: Chief Complaint: Dizziness Referrals: Christopher Foy MD [Primary Care Provider] -
--- NOTE | 2018-02-28 12:53 | ED.DCSUM_ITS ---
- ER Visit Summary Date of Service: 02/28/18 Chief Complaint: Dizzy History of Present Illness: The patient is a 42 F that presents from home for dizziness. She had a cardiac catheterization with stent placement by Dr. Magdaleno 2 days ago. She did fine afterwards. She had dialysis in the hospital yesterday and 2 days ago. She was discharged home yesterday. When she got home , she felt dizzy. She describes both a spinning sensation and lightheadedness. She also feels unstable on her feet. This is a new symptom for her. She reports some associated nausea and vomiting and a headache. No vision changes, speech changes, facial droop, or focal weakness. Patient has a history of coronary disease, diabetes, hypertension, hyperlipidemia, end-stage renal disease, hyperkalemia, pulmonary edema, C. difficile, obstructive sleep apnea, cardiomyopathy, gastroparesis, and others. Physical Examination: Blood pressure unremarkable. Vital signs unremarkable. Afebrile. Patient appears uncomfortable but not in any acute distress. Head and neck atraumatic. Neck nontender. Heart regular. Lungs clear. Abdomen shows mild epigastric tenderness, but no guarding or rebound. Left upper extremity fistula is normal. Extremities atraumatic and unremarkable. Cranial nerves grossly unremarkable. No focal weakness or numbness. NIH is 0. Test Results: EKG showed sinus rhythm with stable T-wave changes. No sign of acute ischemia or infarction. CBC normal except for a stable thrombocytopenia. Potassium 6.2 and glucose 197. BUN and creatinine reflect her chronic end- stage renal disease. Liver panel and lipase unremarkable. Coags and troponin normal. Chest x-ray showed no acute process. CT head showed no acute process. Emergency Department Course and Treatment: Patient was placed on a monitor. She received fluids, Zofran, and pain medicine. She felt better afterwards. She was treated with calcium, Kayexalate, D50, and insulin for her hyperkalemia. Patient was discussed with Dr. Magdaleno. He had no further recommendations. He did not feel that cardiac consultation was indicated. I spoke with the hospitalist who will admit for further care. Patient is stable on my reevaluation. Treatment Plan: As above Disposition: Admission Impression: 1. Dizziness 2. Hyperkalemia This note was generated with [employer] software. It may contain incorrect words, spelling, and punctuation that were not noted in review of the chart prior to signing ED Disposition - Plan for ED Patient: Chief Complaint: Dizziness Referrals: Christopher Foy MD [Primary Care Provider] -
[2018-02-28] MEDS: Dextrose 50%-Water 25 GM/50 ML DISP.SYRIN IV (13:11)
[2018-02-28] MEDS: Sodium Polystyrene Sulfonate 15 GM/60 ML UDC 30 GM PO (13:12)
--- NOTE | 2018-02-28 14:27 | PCM.HP.STD ---
Problem List (1) Nausea & vomiting Status: Acute History of Present Illness Date of Admission: 02/28/18 Chief Complaint: nausea and vomiting The patient is a 42 year old F extensive past medical history of CAD status post stents done on 02/26/2018, ESRD on hemodialysis Saturdays, anemia of chronic disease, nonischemic cardiomyopathy with EF of 45-50%, diabetes, hypertension, hyperlipidemia, gastroparesis. She was admitted via the ED on 02/28/2018 with complaint of nausea and vomiting of 1 day. Patient was recently admitted to the hospital And managed for unstable angina. She underwent cardiac catheterization was found to have single vessel CAD of the mid LAD was status post PTCA and drug-eluting stents to mid LAD. She was discharged on 02/27/2018 after having dialysis for 2 consecutive days. Patient states when she got home, in the evening he started having nausea and vomiting and could not keep anything down. She had an associated fever of 100.7 Fahrenheit. Symptoms were resolving so she tried calling her surfacer office but was unable to get through to them. She had no associated chest pain, abdominal pain, cough or shortness of breath no diarrhea. She therefore came into the ED. Vitals in the ED showed temperature of 97.2 Fahrenheit, blood pressure of 153/77, pulse rate of 83 respiratory rate of 26. Labs done in the ED showed sodium of 134 and potassium of 6.2 with mild hemolysis, creatinine of 5.82, CBC showed hemoglobin of 12.7 and WBC of 9.2. Chest x-ray was unremarkable and brain CT was also unremarkable. She has been admitted to be managed for nausea and vomiting. Symptoms had resolved at time of review. [] Past Medical History Past Medical History (Chronic Problems): Chronic Problems (Last Updated 02/27/18 @ 10:29 by Pricila Olson) Stented coronary artery (Chronic 02/26/18) FFR of LAD 0.82; VIKY of mid LAD with 2.5 X 24 mm Promus Synergy, OM <50% stenosis per Dr. Magdaleno @ [facility] Atherosclerotic heart disease of [place] coronary artery without angina pectoris (Chronic) FFR of LAD 0.82; VIKY of mid LAD with 2.5 X 24 mm Promus Synergy, OM <50% stenosis per Dr. Magdaleno @ [facility] ESRD (end stage renal disease) on dialysis (Chronic) Decubitus ulcer, stage III (Chronic) Anemia, chronic disease (Chronic) Pilonidal cyst with abscess (Chronic) GABRIEL (obstructive sleep apnea) (Chronic) Depression (Chronic) Anxiety (Chronic) HTN (hypertension) (Chronic) Nonischemic cardiomyopathy (Chronic) With ejection fraction 45 - 50%; with angiographically normal coronary arteries 05/2013; follows up with Dr. Magdaleno Diabetes mellitus type 1 (Chronic) Hyperlipidemia (Chronic) Obesity (BMI 30.0-34.9) (Chronic) Gastroparesis (Chronic) Medical History: Medical History (Last Updated 02/27/18 @ 10:29 by Pricila Olson) Atherosclerotic heart disease of [place] coronary artery without angina pectoris (Chronic) I25.10 FFR of LAD 0.82; VIKY of mid LAD with 2.5 X 24 mm Promus Synergy, OM <50% stenosis per Dr. Magdaleno @ [facility] ESRD (end stage renal disease) on dialysis (Chronic) N18.6, Z99.2 Decubitus ulcer, stage III (Chronic) L89.93 Anemia, chronic disease (Chronic) D63.8 Pilonidal cyst with abscess (Chronic) L05.01 GABRIEL (obstructive sleep apnea) (Chronic) G47.33 HTN (hypertension) (Chronic) I10 Nonischemic cardiomyopathy (Chronic) I42.8 With ejection fraction 45 - 50%; with angiographically normal coronary arteries 05/2013; follows up with Dr. Magdaleno Diabetes mellitus type 1 (Chronic) Hyperlipidemia (Chronic) E78.5 Obesity (BMI 30.0-34.9) (Chronic) E66.9 Gastroparesis (Chronic) K31.84 Allergies latex Allergy (Verified 02/28/18 10:07) Rash levofloxacin [From Levaquin] Adverse Reaction (Verified 02/28/18 10:07) PT CAN'T REMEMBER PT CAN'T REMEMBER metoclopramide HCl [From Reglan] Adverse Reaction (Verified 02/28/18 10:07) Nausea NSAIDS (Non-Steroidal Anti-Inflamma Adverse Reaction (Verified 02/28/18 10:07) kidney function oxycodone HCl [From Percocet] Adverse Reaction (Verified 02/28/18 10:07) HALLUCINATIONS Home Medications: Ambulatory Orders Medication Instructions Recorded Aspirin [Aspirin, Baby] 81 mg PO DAILY@0800 01/26/16 Calcium Acetate [Phoslo Gel Cap] 1,334 mg PO TIDCM 01/26/16 Ergocalciferol [Vitamin D] 50,000 unit PO FR 01/26/16 Insulin Aspart [Novolog Flexpen] 10 units SC TIDCM 01/26/16 Insulin Glargine,Hum.rec.anlog 5 unit SQ QHS 01/09/17 [Lantus] proMETHazine tablet [Phenergan 25 mg PO Q6H PRN PRN #10 tablet 03/06/17 tablet] Lisinopril 20 mg PO DAILY 03/29/17 Sodium Bicarbonate 650 mg PO TUTHSA 03/29/17 Carvedilol [Coreg (Beta Chang)] 25 mg PO BID 06/17/17 Fluoxetine HCl 40 mg PO DAILY 09/02/17 ALPRAZolam [Xanax] 0.5 mg PO DAILY 11/21/17 Ondansetron [Zofran Odt] 4 mg PO Q8H PRN PRN #10 tablet 01/27/18 Atorvastatin Calcium 20 mg PO QHS 02/08/18 Dicyclomine HCl [Bentyl] 20 mg PO 4X/DAY PRN PRN 02/08/18 Omeprazole Magnesium [Prilosec Otc] 20 mg PO DAILY 02/08/18 Clopidogrel Bisulfate [Plavix] 75 mg PO DAILY #90 tab 02/27/18 Isosorbide Mononitrate [Isosorbide 60 mg PO DAILY 02/28/18 Mononitrate ER] Surgical History: Surgical History (Last Updated 02/27/18 @ 10:29 by Pricila Olson) Stented coronary artery (Chronic) Onset Date: 02/26/18 Z95.5 FFR of LAD 0.82; VIKY of mid LAD with 2.5 X 24 mm Promus Synergy, OM <50% stenosis per Dr. Magdaleno @ [facility] S/P repair of PDA (patent ductus arteriosus) (Resolved) Z98.890, Z87.74 At young age Surgical History: appendectomy, hysterectomy - and BSO, - - c-sections, L breast I+D for abscess, fistula placement LUE, L ankle surgery, appendectomy, PDA repair. Excision pilonidal cyst ulcer about 4 years ago. Colostomy placed due to rectal abscess/wound, patent ductus repair Smoking Status: Former smoker - *Family History Maternal History Items: Cancer, COPD, Diabetes, Hypertension, Renal Disease, Stroke Paternal History Items: Diabetes Sibling History Items: Cancer, Diabetes Review of Systems Constitutional: Reports: Fever, Weakness. Denies: Chills, Weight Change, Fatigue Eyes: Denies: Blurred vision HEENT: Denies: Difficulty Swallowing, Dysphasia, Ear Pain, Head Aches, Sinus Congestion, Sinus Drainage Cardiovascular: Denies: Chest Pain, Edema, Light Headedness, Palpitations, Syncope Respiratory: Denies: Cough, Pleuritic Pain, Shortness of Breath, Shortness of breath at rest, Sputum production Gastrointestinal: Reports: Nausea, Vomiting. Denies: Abdominal Pain, Constipation, Diarrhea Genitourinary: Denies: Dysuria Musculoskeletal: Denies: Joint Pain, Joint Tenderness Skin: Denies: Rash, Wounds Neurological: Denies: Balance problems, Double vision, Focal weakness, Numbness, Tingling Psychiatric: Denies: Anxiety, Depression, Homicidal Ideations, Suicidal Ideations Hematologic/ Lymphatic: Denies: Easy Bruising, Easy Bleeding VTE Information - Inpt Only VTE Present on Admission: No VTE Mechan Device Prophylaxis: None VTE Pharm Prophylaxis ordered?: Yes Patient Problems: Active and Suspected Problems (Last Updated 02/27/18 @ 10:29 by Pricila Olson) Nausea & vomiting (Acute) - Physical Exam General: Alert, Oriented x3, Cooperative, No apparent distress HEENT: Atraumatic, PERRLA, EOMI, Normocephalic Oral: Moist Mucosa Neck: Supple, No JVD, Negative Carotid Bruits Lungs: Clear to auscultation, Normal air movement, No rhonchi, No wheeze, No rales Cardiovascular: Regular rate, Regular Rhythm, Normal S1, Normal S2, No murmurs Abdomen: Bowel Sounds Present, Soft, Non Tender, Non-Distended, No Hepato-splenomegaly, Passing Flatus, - - colostomy bag contains loose stool Extremities: No clubbing, No cyanosis, No edema, Capillary Refill Less than 3 Seconds Skin: No rashes, No breakdown Musculoskeletal: No Tenderness to Palpation of Joints or Extremities Lymphatic: No Cervical, Supraclavicular, or Inguinal Adenopathy Neurological: Cranial nerves II-XII grossly intact, Motor Exam 5/5 strength throughout Psych/Mental Status: Normal Affect, Appropriate, Alert and oriented to time, place, person, mood and affect Vital Signs Temp Pulse Resp BP Pulse Ox 97.2 F L 77 11 L 156/75 H 93 02/28/18 10:09 02/28/18 13:12 02/28/18 13:12 02/28/18 13:12 02/28/18 13:12 Oxygen Delivery Method Room Air Weight: 194 lb 14.218 oz Body Mass Index (BMI) 31.4 Laboratory Tests 02/28/18 02/28/18 02/28/18 10:40 10:40 10:40 WBC 9.2 RBC 4.02 L Hgb 12.7 Hct 40.7 MCV 101.2 H MCH 31.6 MCHC 31.2 L RDW 16.1 H RDW Differential 59.7 H Plt Count 102 L MPV 9.3 Immature Gran % (Auto) 0.000 Neut % (Auto) 86.0 H Lymph % (Auto) 9.2 L Swift % (Auto) 2.8 Eos % (Auto) 1.8 Baso % (Auto) 0.2 Absolute Neuts (auto) 7.9 H Absolute Lymphs (auto) 0.85 Total Counted Not Reportable PT Cancelled INR Cancelled APTT Cancelled Sodium 134 L Potassium 6.2 H* Chloride 97 L Carbon Dioxide 28.0 Anion Gap 9 BUN 34 H Creatinine 5.82 H Estim Creat Clear Calc 11.55 Est GFR (MDRD) Af Amer 10 L Est GFR (MDRD) Non-Af 8 L BUN/Creatinine Ratio 5.8 L Glucose 197 H Calcium 9.0 Total Bilirubin 0.50 Direct Bilirubin 0.05 AST 48 H ALT 25 Alkaline Phosphatase 90 Troponin I 0.018 Total Protein 8.4 H Albumin 3.2 Globulin 5.2 H Lipase 164 02/28/18 02/28/18 11:04 11:25 WBC RBC Hgb Hct MCV MCH MCHC RDW RDW Differential Plt Count MPV Immature Gran % (Auto) Neut % (Auto) Lymph % (Auto) Swift % (Auto) Eos % (Auto) Baso % (Auto) Absolute Neuts (auto) Absolute Lymphs (auto) Total Counted PT Cancelled 14.0 INR Cancelled 1.1 APTT Cancelled 28.4 Sodium Potassium Chloride Carbon Dioxide Anion Gap BUN Creatinine Estim Creat Clear Calc Est GFR (MDRD) Af Amer Est GFR (MDRD) Non-Af BUN/Creatinine Ratio Glucose Calcium Total Bilirubin Direct Bilirubin AST ALT Alkaline Phosphatase Troponin I Total Protein Albumin Globulin Lipase Diagnostic Data Brain CT 02/28/18 10:35 IMPRESSION: Normal unenhanced CT scan of the brain. Electronically Signed: Nallely Pinto MD at 11:08 EDT Tel , Service support , Chest X-Ray 02/28/18 10:35 IMPRESSION: No acute cardiopulmonary process. Electronically Signed: Jhon Tierney, at 11:45 EDT Tel , Service support , Assessment/Plan All Active Problems (Last Updated 02/27/18 @ 10:29 by Pricila Olson) Nausea & vomiting (Acute) Migraine (Acute) Metabolic encephalopathy (Acute) Abnormal electrocardiogram [ECG] [EKG] (Acute) Chest pain (Resolved) Tooth abscess (Resolved) Intractable nausea and vomiting (Resolved) Pneumonia (Resolved) Pulmonary edema (Resolved) Hyperkalemia (Resolved) Atypical chest pain (Resolved) Acute hypoxic respiratory failure (Resolved) Pulmonary edema (Resolved) Clostridium difficile enterocolitis (Resolved) Necrotizing myositis (Resolved) S/P repair of PDA (patent ductus arteriosus) (Resolved) Dysmenorrhea (Resolved) Hx of necrotizing fascIItis (Resolved) Iron deficiency anemia due to chronic blood loss (Resolved) Systolic congestive heart failure (Resolved) 52-year-old female with a history of ESRD on hemodialysis, CAD status post stent and hypertension as well as diabetes presenting with a complaint of nausea and vomiting. 1. Nausea and vomiting, etiology unclear discharged one day ago after being managed for unstable angina had stenting done. Symptoms started after she was discharged home symptoms had resolved at time of review. CT head was negative admit to PCU (sent to ICU as PCU overflow) give IV zofran 4mg q6prn will hold off on IVF due to symptoms having resolved,a nd also concerns about fluid overload in ESRD patient encourage liberal oral intake will check UA to ensure she has no UTI 2. CAD s/p stents stenting done 02/26/18 on aspirin, plavix, beta chang, statin on imdur 3. ESRD on HD TTS Dialysis on Monday and Monday. States she had a total of 3 L taken over the last 2 days with her going a little bit below her dry weight of 87kg. A consideration is dialysis dysequilibrium syndrome, but I dont think this is very likely. has hyperkalemia as well. Will get nephrology consult 4. Hyperkalemia K was 6.4 on admission, with moderate hemolysis. It may therefore not be very accurate given kayexalate and hyperkalemia cocktail in ED. will repeat BMP at 6pm 5. Diabetes mellitus on lantus 10IU sc bid and lispro 10IU tidwm ISS. Accuchecks ACHS 6. hypertension on carvedilol 25mg bid and lisinopril 20mg daily will hold lisinopril in light of elevated potassium DVT prophylaxis: Heparin GI prophylaxis: PPI CODE STATUS: Full code. Patient counseled about different types of CODE STATUS namely general cc, DNR CCA and full code. Patient elects to be full code. This note was generated with [employer] dictation software. It may contain incorrect words, spelling, and punctuation that were not noted in checking the note before signing. Code Visit OBSV E&M: 03556 Initial observation care L3 Procedures: 73188 Advncd Care Plan 30 Min
--- NOTE | 2018-02-28 14:31 | HP.PCM_ITS ---
Problem List (1) Nausea & vomiting Status: Acute History of Present Illness Date of Admission: 02/28/18 Chief Complaint: nausea and vomiting The patient is a 42 year old F extensive past medical history of CAD status post stents done on 02/26/2018, ESRD on hemodialysis Saturdays , anemia of chronic disease, nonischemic cardiomyopathy with EF of 45-50%, diabetes, hypertension, hyperlipidemia, gastroparesis. She was admitted via the ED on 02/28/2018 with complaint of nausea and vomiting of 1 day. Patient was recently admitted to the hospital And managed for unstable angina. She underwent cardiac catheterization was found to have single vessel CAD of the mid LAD was status post PTCA and drug-eluting stents to mid LAD. She was discharged on 02/27/2018 after having dialysis for 2 consecutive days. Patient states when she got home, in the evening he started having nausea and vomiting and could not keep anything down. She had an associated fever of 100.7 Fahrenheit. Symptoms were resolving so she tried calling her financial planning assistant office but was unable to get through to them. She had no associated chest pain , abdominal pain, cough or shortness of breath no diarrhea. She therefore came into the ED. Vitals in the ED showed temperature of 97.2 Fahrenheit, blood pressure of 153/77, pulse rate of 83 respiratory rate of 26. Labs done in the ED showed sodium of 134 and potassium of 6.2 with mild hemolysis, creatinine of 5.82, CBC showed hemoglobin of 12.7 and WBC of 9.2. Chest x-ray was unremarkable and brain CT was also unremarkable. She has been admitted to be managed for nausea and vomiting. Symptoms had resolved at time of review. [] Past Medical History Past Medical History (Chronic Problems): Chronic Problems (Last Updated 02/27/18 @ 10:29 by Pricila Olson) Stented coronary artery (Chronic 02/26/18) FFR of LAD 0.82; VIKY of mid LAD with 2.5 X 24 mm Promus Synergy, OM <50% stenosis per Dr. Magdaleno @ [facility] Atherosclerotic heart disease of [place] coronary artery without angina pectoris (Chronic) FFR of LAD 0.82; VIKY of mid LAD with 2.5 X 24 mm Promus Synergy, OM <50% stenosis per Dr. Magdaleno @ [facility] ESRD (end stage renal disease) on dialysis (Chronic) Decubitus ulcer, stage III (Chronic) Anemia, chronic disease (Chronic) Pilonidal cyst with abscess (Chronic) GABRIEL (obstructive sleep apnea) (Chronic) Depression (Chronic) Anxiety (Chronic) HTN (hypertension) (Chronic) Nonischemic cardiomyopathy (Chronic) With ejection fraction 45 - 50%; with angiographically normal coronary arteries 05/2013; follows up with Dr. Magdaleno Diabetes mellitus type 1 (Chronic) Hyperlipidemia (Chronic) Obesity (BMI 30.0-34.9) (Chronic) Gastroparesis (Chronic) Medical History: Medical History (Last Updated 02/27/18 @ 10:29 by Pricila Olson) Atherosclerotic heart disease of [place] coronary artery without angina pectoris (Chronic) I25.10 FFR of LAD 0.82; VIKY of mid LAD with 2.5 X 24 mm Promus Synergy, OM <50% stenosis per Dr. Magdaleno @ [facility] ESRD (end stage renal disease) on dialysis (Chronic) N18.6, Z99.2 Decubitus ulcer, stage III (Chronic) L89.93 Anemia, chronic disease (Chronic) D63.8 Pilonidal cyst with abscess (Chronic) L05.01 GABRIEL (obstructive sleep apnea) (Chronic) G47.33 HTN (hypertension) (Chronic) I10 Nonischemic cardiomyopathy (Chronic) I42.8 With ejection fraction 45 - 50%; with angiographically normal coronary arteries 05/2013; follows up with Dr. Magdaleno Diabetes mellitus type 1 (Chronic) Hyperlipidemia (Chronic) E78.5 Obesity (BMI 30.0-34.9) (Chronic) E66.9 Gastroparesis (Chronic) K31.84 Allergies latex Allergy (Verified 02/28/18 10:07) Rash levofloxacin [From Levaquin] Adverse Reaction (Verified 02/28/18 10:07) PT CAN'T REMEMBER PT CAN'T REMEMBER metoclopramide HCl [From Reglan] Adverse Reaction (Verified 02/28/18 10:07) Nausea NSAIDS (Non-Steroidal Anti-Inflamma Adverse Reaction (Verified 02/28/18 10:07) kidney function oxycodone HCl [From Percocet] Adverse Reaction (Verified 02/28/18 10:07) HALLUCINATIONS Home Medications: Ambulatory Orders Medication Instructions Recorded Aspirin [Aspirin, Baby] 81 mg PO DAILY@0800 01/26/16 Calcium Acetate [Phoslo Gel Cap] 1,334 mg PO TIDCM 01/26/16 Ergocalciferol [Vitamin D] 50,000 unit PO FR 01/26/16 Insulin Aspart [Novolog Flexpen] 10 units SC TIDCM 01/26/16 Insulin Glargine,Hum.rec.anlog 5 unit SQ QHS 01/09/17 [Lantus] proMETHazine tablet [Phenergan 25 mg PO Q6H PRN PRN #10 tablet 03/06/17 tablet] Lisinopril 20 mg PO DAILY 03/29/17 Sodium Bicarbonate 650 mg PO TUTHSA 03/29/17 Carvedilol [Coreg (Beta Chang)] 25 mg PO BID 06/17/17 Fluoxetine HCl 40 mg PO DAILY 09/02/17 ALPRAZolam [Xanax] 0.5 mg PO DAILY 11/21/17 Ondansetron [Zofran Odt] 4 mg PO Q8H PRN PRN #10 tablet 01/27/18 Atorvastatin Calcium 20 mg PO QHS 02/08/18 Dicyclomine HCl [Bentyl] 20 mg PO 4X/DAY PRN PRN 02/08/18 Omeprazole Magnesium [Prilosec Otc] 20 mg PO DAILY 02/08/18 Clopidogrel Bisulfate [Plavix] 75 mg PO DAILY #90 tab 02/27/18 Isosorbide Mononitrate [Isosorbide 60 mg PO DAILY 02/28/18 Mononitrate ER] Surgical History: Surgical History (Last Updated 02/27/18 @ 10:29 by Pricila Olson) Stented coronary artery (Chronic) Onset Date: 02/26/18 Z95.5 FFR of LAD 0.82; VIKY of mid LAD with 2.5 X 24 mm Promus Synergy, OM <50% stenosis per Dr. Magdaleno @ [facility] S/P repair of PDA (patent ductus arteriosus) (Resolved) Z98.890, Z87.74 At young age Surgical History: appendectomy, hysterectomy - and BSO, - - c-sections, L breast I+D for abscess, fistula placement LUE, L ankle surgery, appendectomy, PDA repair. Excision pilonidal cyst ulcer about 4 years ago. Colostomy placed due to rectal abscess/wound, patent ductus repair Smoking Status: Former smoker - *Family History Maternal History Items: Cancer, COPD, Diabetes, Hypertension, Renal Disease, Stroke Paternal History Items: Diabetes Sibling History Items: Cancer, Diabetes Review of Systems Constitutional: Reports: Fever, Weakness. Denies: Chills, Weight Change, Fatigue Eyes: Denies: Blurred vision HEENT: Denies: Difficulty Swallowing, Dysphasia, Ear Pain, Head Aches, Sinus Congestion, Sinus Drainage Cardiovascular: Denies: Chest Pain, Edema, Light Headedness, Palpitations, Syncope Respiratory: Denies: Cough, Pleuritic Pain, Shortness of Breath, Shortness of breath at rest, Sputum production Gastrointestinal: Reports: Nausea, Vomiting. Denies: Abdominal Pain, Constipation, Diarrhea Genitourinary: Denies: Dysuria Musculoskeletal: Denies: Joint Pain, Joint Tenderness Skin: Denies: Rash, Wounds Neurological: Denies: Balance problems, Double vision, Focal weakness, Numbness , Tingling Psychiatric: Denies: Anxiety, Depression, Homicidal Ideations, Suicidal Ideations Hematologic/ Lymphatic: Denies: Easy Bruising, Easy Bleeding VTE Information - Inpt Only VTE Present on Admission: No VTE Mechan Device Prophylaxis: None VTE Pharm Prophylaxis ordered?: Yes Patient Problems: Active and Suspected Problems (Last Updated 02/27/18 @ 10:29 by Pricila Olson) Nausea & vomiting (Acute) - Physical Exam General: Alert, Oriented x3, Cooperative, No apparent distress HEENT: Atraumatic, PERRLA, EOMI, Normocephalic Oral: Moist Mucosa Neck: Supple, No JVD, Negative Carotid Bruits Lungs: Clear to auscultation, Normal air movement, No rhonchi, No wheeze, No rales Cardiovascular: Regular rate, Regular Rhythm, Normal S1, Normal S2, No murmurs Abdomen: Bowel Sounds Present, Soft, Non Tender, Non-Distended, No Hepato- splenomegaly, Passing Flatus, - - colostomy bag contains loose stool Extremities: No clubbing, No cyanosis, No edema, Capillary Refill Less than 3 Seconds Skin: No rashes, No breakdown Musculoskeletal: No Tenderness to Palpation of Joints or Extremities Lymphatic: No Cervical, Supraclavicular, or Inguinal Adenopathy Neurological: Cranial nerves II-XII grossly intact, Motor Exam 5/5 strength throughout Psych/Mental Status: Normal Affect, Appropriate, Alert and oriented to time, place, person, mood and affect Vital Signs Temp Pulse Resp BP Pulse Ox 97.2 F L 77 11 L 156/75 H 93 02/28/18 10:09 02/28/18 13:12 02/28/18 13:12 02/28/18 13:12 02/28/18 13:12 Oxygen Delivery Method Room Air Weight: 194 lb 14.218 oz Body Mass Index (BMI) 31.4 Laboratory Tests 02/28/18 02/28/18 02/28/18 10:40 10:40 10:40 WBC 9.2 RBC 4.02 L Hgb 12.7 Hct 40.7 MCV 101.2 H MCH 31.6 MCHC 31.2 L RDW 16.1 H RDW Differential 59.7 H Plt Count 102 L MPV 9.3 Immature Gran % (Auto) 0.000 Neut % (Auto) 86.0 H Lymph % (Auto) 9.2 L [place] % (Auto) 2.8 Eos % (Auto) 1.8 Baso % (Auto) 0.2 Absolute Neuts (auto) 7.9 H Absolute Lymphs (auto) 0.85 Total Counted Not Reportable PT Cancelled INR Cancelled APTT Cancelled Sodium 134 L Potassium 6.2 H* Chloride 97 L Carbon Dioxide 28.0 Anion Gap 9 BUN 34 H Creatinine 5.82 H Estim Creat Clear Calc 11.55 Est GFR (MDRD) Af Amer 10 L Est GFR (MDRD) Non-Af 8 L BUN/Creatinine Ratio 5.8 L Glucose 197 H Calcium 9.0 Total Bilirubin 0.50 Direct Bilirubin 0.05 AST 48 H ALT 25 Alkaline Phosphatase 90 Troponin I 0.018 Total Protein 8.4 H Albumin 3.2 Globulin 5.2 H Lipase 164 02/28/18 02/28/18 11:04 11:25 WBC RBC Hgb Hct MCV MCH MCHC RDW RDW Differential Plt Count MPV Immature Gran % (Auto) Neut % (Auto) Lymph % (Auto) [place] % (Auto) Eos % (Auto) Baso % (Auto) Absolute Neuts (auto) Absolute Lymphs (auto) Total Counted PT Cancelled 14.0 INR Cancelled 1.1 APTT Cancelled 28.4 Sodium Potassium Chloride Carbon Dioxide Anion Gap BUN Creatinine Estim Creat Clear Calc Est GFR (MDRD) Af Amer Est GFR (MDRD) Non-Af BUN/Creatinine Ratio Glucose Calcium Total Bilirubin Direct Bilirubin AST ALT Alkaline Phosphatase Troponin I Total Protein Albumin Globulin Lipase Diagnostic Data Brain CT 02/28/18 10:35 IMPRESSION: Normal unenhanced CT scan of the brain. Electronically Signed: Nallely Pinto MD at 11:08 EDT Tel , Service support , Chest X-Ray 02/28/18 10:35 IMPRESSION: No acute cardiopulmonary process. Electronically Signed: Jhon Tierney, at 11:45 EDT Tel , Service support , Assessment/Plan All Active Problems (Last Updated 02/27/18 @ 10:29 by Pricila Olson) Nausea & vomiting (Acute) Migraine (Acute) Metabolic encephalopathy (Acute) Abnormal electrocardiogram [ECG] [EKG] (Acute) Chest pain (Resolved) Tooth abscess (Resolved) Intractable nausea and vomiting (Resolved) Pneumonia (Resolved) Pulmonary edema (Resolved) Hyperkalemia (Resolved) Atypical chest pain (Resolved) Acute hypoxic respiratory failure (Resolved) Pulmonary edema (Resolved) Clostridium difficile enterocolitis (Resolved) Necrotizing myositis (Resolved) S/P repair of PDA (patent ductus arteriosus) (Resolved) Dysmenorrhea (Resolved) Hx of necrotizing fascIItis (Resolved) Iron deficiency anemia due to chronic blood loss (Resolved) Systolic congestive heart failure (Resolved) 52-year-old female with a history of ESRD on hemodialysis, CAD status post stent and hypertension as well as diabetes presenting with a complaint of nausea and vomiting. 1. Nausea and vomiting, etiology unclear * discharged one day ago after being managed for unstable angina * had stenting done. Symptoms started after she was discharged home * symptoms had resolved at time of review. * CT head was negative * admit to PCU (sent to ICU as PCU overflow) * give IV zofran 4mg q6prn * will hold off on IVF due to symptoms having resolved,a nd also concerns about fluid overload in ESRD patient * encourage liberal oral intake * will check UA to ensure she has no UTI * 2. CAD s/p stents * stenting done 02/26/18 * on aspirin, plavix, beta chang, statin * on imdur 3. ESRD on HD TTS * Dialysis on Monday and Monday. States she had a total of 3 L taken over the last 2 days with her going a little bit below her dry weight of 87kg. * A consideration is dialysis dysequilibrium syndrome, but I dont think this is very likely. * has hyperkalemia as well. Will get nephrology consult 4. Hyperkalemia * K was 6.4 on admission, with moderate hemolysis. It may therefore not be very accurate * given kayexalate and hyperkalemia cocktail in ED. will repeat BMP at 6pm * 5. Diabetes mellitus * on lantus 10IU sc bid and lispro 10IU tidwm * ISS. Accuchecks ACHS * 6. hypertension * on carvedilol 25mg bid and lisinopril 20mg daily * will hold lisinopril in light of elevated potassium * DVT prophylaxis: Heparin GI prophylaxis: PPI CODE STATUS: Full code. Patient counseled about different types of CODE STATUS namely general cc, DNR CCA and full code. Patient elects to be full code. This note was generated with [employer] dictation software. It may contain incorrect words, spelling, and punctuation that were not noted in checking the note before signing. Code Visit OBSV E&M: 39053 Initial observation care L3 Procedures: 40564 Advncd Care Plan 30 Min
[2018-02-28] MEDS: 0.9% NaCl Peripheral Flush Adult/Peds IV (15:31)
[2018-02-28] MEDS: Acetaminophen 325 MG Tablet 650 MG PO ×2 (15:32→21:32)
[2018-02-28] MEDS: Calcium Acetate 667 MG Capsule 1334 MG PO ×2 (15:44→17:58)
[2018-02-28] MEDS: Insulin Lispro 100 UNIT/ML INSULN.PEN 10 UNIT SC (15:48)
[2018-02-28 16:41] LABS: Bedside Glucose 148 mg/dL (70-110)
[2018-02-28 17:06] LABS: Mucous, Urine 0 SEEN /hpf (<or=2+); White Blood Cells 0 SEEN /hpf (0-5)
[2018-02-28 17:08] LABS: Color, Urine Yellow (Yellow); Glucose, Dipstick 250 mg/dl (Normal); Ketone-Dipstick Negative (Negative); Leukocyte Esterase-Dipstick Negative /ul (Negative); Nitrite-Dipstick Negative (Negative); Occult Blood-Urine 10 /ul (Negative); Protein-Dipstick 100 mg/dl (Negative); Urine Bilirubin Dipstick Negative (Negative); Urine Clarity Sl. Cloudy (Clear); Urine Urobilinogen Normal (Normal)
[2018-02-28 17:25] LABS: Bacteria RARE /hpf (None Seen); Red Blood Cells-Urine 0-5 SEEN /hpf (0-5); Squamous Epithelial Cells - UA 0-5 SEEN /hpf (5-10)
[2018-02-28 17:29] LABS: Anion Gap 9 (5-15); BUN 36 mg/dL (7-18); Calcium,Total 8.8 mg/dL (8.5-10.1); Chloride 102 mmol/L (98-107); Creatinine, Serum 6.05 mg/dL (0.55-1.02); EST Glomerular Filtration Rate 8 mL/min (>60); Est Glom Filt Rate - Afr Amer 10 mL/min (>60); Estimated Creatinine Clearance 11.11 ml/min; Glucose 136 mg/dL (74-106); Sodium Level 139 mmol/L (136-145)
[2018-02-28] MEDS: HYDROcodone Bitartrate/Apap 5/325 Tablet PO (17:50)
[2018-02-28 18:11] LABS: Bedside Glucose 84 mg/dL (70-110)
--- NOTE | 2018-02-28 18:21 | PCM.CONS.R ---
Problem List (1) ESRD (end stage renal disease) on dialysis Status: Chronic Consultation - Renal 02/28/18 PCP/ Referring MD: Requesting physician: Dr Lucas Primary care physician: Christopher Foy Reason for Consultation:: ESRD - History of Present Illness History of Present Illness: The patient is a 42 year old F well known to us. ESRD on HD TTS schedule. was recently in hospital with chest pain, breathing issues. ended up having a stent placed by cardiology. She went home, started feeling sick and came back with nausea vomitings and abdominal discomfort. was found to be hyperkalemic. - Allergies Allergies: Allergies latex Allergy (Verified 02/28/18 10:07) Rash levofloxacin [From Levaquin] Adverse Reaction (Verified 02/28/18 10:07) PT CAN'T REMEMBER PT CAN'T REMEMBER metoclopramide HCl [From Reglan] Adverse Reaction (Verified 02/28/18 10:07) Nausea NSAIDS (Non-Steroidal Anti-Inflamma Adverse Reaction (Verified 02/28/18 10:07) kidney function oxycodone HCl [From Percocet] Adverse Reaction (Verified 02/28/18 10:07) HALLUCINATIONS - Current Medications Current Medications: Current Medications Acetaminophen (Tylenol) 650 mg PO Q6H PRN PRN PRN Reason: PAIN Last Admin: 02/28/18 15:32 Dose: 650 mg Alprazolam (Xanax) 0.5 mg PO DAILY [facility] Aspirin (Aspirin, Baby) 81 mg PO DAILY@0800 [facility] Atorvastatin Calcium (Lipitor) 20 mg PO QHS [facility] Calcium Acetate (Phoslo Gel Cap) 1,334 mg PO TIDCM [facility] Last Admin: 02/28/18 17:58 Dose: 1,334 mg Carvedilol (Coreg) 25 mg PO BID [facility] Clopidogrel Bisulfate (Plavix) 75 mg PO DAILY [facility] Dicyclomine HCl (Bentyl) 20 mg PO 4X/DAY PRN PRN PRN Reason: distress Ergocalciferol (Vitamin D) 50,000 unit PO Fr@1000 [facility] Fluoxetine HCl (Prozac) 40 mg PO DAILY [facility] Heparin Sodium (Porcine) (Heparin Na) 5,000 unit SC Q8 [facility] Sodium Chloride () 250 mls @ 15 mls/hr IV .[id number] PRN PRN Reason: SALINE FLUSH Insulin Glargine (Lantus (Bkc)) 5 units SC QHS [facility] Insulin Human Lispro (Humalog Kwikpen ([facility])) 10 unit SC TIDCM [facility] Last Admin: 02/28/18 17:58 Dose: Not Given Isosorbide Mononitrate (Imdur) 60 mg PO DAILY [facility] Magnesium Hydroxide (Milk Of Magnesia) 30 ml PO DAILY PRN PRN PRN Reason: Constipation Ondansetron HCl (Zofran Odt) 4 mg PO Q8H PRN PRN PRN Reason: NAUSEA Ondansetron HCl (Zofran) 4 mg IV Q8H PRN PRN PRN Reason: NAUSEA/VOMITING Last Admin: 02/28/18 15:32 Dose: 4 mg Pantoprazole Sodium (Protonix) 20 mg PO DAILY [facility] Promethazine HCl (Phenergan Tablet) 25 mg PO Q6H PRN PRN PRN Reason: NAUSEA Sodium Bicarbonate (Sodium Bicarbonate) 650 mg PO TUTHSA [facility] Sodium Chloride () 5 - 30 ml IV UD PRN PRN Reason: SALINE FLUSH Last Admin: 02/28/18 15:31 Dose: 20 ml - Past Medical History Past Medical History (Chronic Problems): Chronic Problems (Last Updated 02/27/18 @ 10:29 by Pricila Olson) Stented coronary artery (Chronic 02/26/18) FFR of LAD 0.82; VIKY of mid LAD with 2.5 X 24 mm Promus Synergy, OM <50% stenosis per Dr. Magdaleno @ [facility] Atherosclerotic heart disease of [place] coronary artery without angina pectoris (Chronic) FFR of LAD 0.82; VIKY of mid LAD with 2.5 X 24 mm Promus Synergy, OM <50% stenosis per Dr. Magdaleno @ [facility] ESRD (end stage renal disease) on dialysis (Chronic) Decubitus ulcer, stage III (Chronic) Anemia, chronic disease (Chronic) Pilonidal cyst with abscess (Chronic) GABRIEL (obstructive sleep apnea) (Chronic) Depression (Chronic) Anxiety (Chronic) HTN (hypertension) (Chronic) Nonischemic cardiomyopathy (Chronic) With ejection fraction 45 - 50%; with angiographically normal coronary arteries 05/2013; follows up with Dr. Magdaleno Diabetes mellitus type 1 (Chronic) Hyperlipidemia (Chronic) Obesity (BMI 30.0-34.9) (Chronic) Gastroparesis (Chronic) - Past Surgical History Surgical History: appendectomy, hysterectomy - and BSO, - - c-sections, L breast I+D for abscess, fistula placement LUE, L ankle surgery, appendectomy, PDA repair. Excision pilonidal cyst ulcer about 4 years ago. Colostomy placed due to rectal abscess/wound, patent ductus repair - Social History Smoking Status: Former smoker - Family History Maternal History Items: Cancer, COPD, Diabetes, Hypertension, Renal Disease, Stroke Paternal History Items: Diabetes Sibling History Items: Cancer, Diabetes Review of Systems Constitutional: Denies: Chills, Fever, Weight Change HEENT: Denies: Head Aches, Sinus Congestion, Sinus Drainage Cardiovascular: Denies: Chest Pain, Palpitations Respiratory: Denies: Cough, Shortness of breath at rest, Sputum production Gastrointestinal: Denies: Abdominal Pain, Nausea, Vomiting Genitourinary: Denies: Dysuria Musculoskeletal: Denies: Joint Pain, Joint Tenderness Skin: Denies: Rash, Wounds Neurological: Denies: Numbness, Tingling, Focal weakness Psychiatric: Denies: Anxiety, Depression, Homicidal Ideations, Suicidal Ideations Hematologic/ Lymphatic: Denies: Easy Bruising, Easy Bleeding Patient Problems: Active and Suspected Problems (Last Updated 02/27/18 @ 10:29 by Pricila Olson) Nausea & vomiting (Acute) - Physical Exam General: Alert, Oriented x3, Cooperative HEENT: Atraumatic, PERRLA, EOMI, Normocephalic Neck: Supple, No JVD, Negative Carotid Bruits Lungs: Clear to auscultation, Normal air movement Cardiovascular: Regular rate, No murmurs Abdomen: Bowel Sounds Present, Soft, Non Tender Extremities: No edema, Capillary Refill Less than 3 Seconds Skin: No rashes, No breakdown Musculoskeletal: No Tenderness to Palpation of Joints or Extremities Neurological: Cranial nerves II-XII grossly intact Psych/Mental Status: Normal Affect, Appropriate Vital Signs Temp Pulse Resp BP Pulse Ox 97.9 F 75 19 H 152/83 H 95 02/28/18 18:00 02/28/18 18:00 02/28/18 18:00 02/28/18 18:00 02/28/18 18:00 Oxygen Delivery Method Room Air Weight: 88.4 kg Body Mass Index (BMI) 31.4 Intake and Output for Last 24 Hours 02/26/18 02/27/1802/28/18 23:59 23:59 23:59 Intake Total 400 / 400 Output Total 950 / 950 Balance -550 / -550 Laboratory Tests Past 24 Hrs 02/28/18 02/28/18 15:45 16:45 Sodium 139 Potassium 4.0 Chloride 102 Carbon Dioxide 28.0 Anion Gap 9 BUN 36 H Creatinine 6.05 H Estim Creat Clear Calc 11.11 Est GFR (MDRD) Af Amer 10 L Est GFR (MDRD) Non-Af 8 L BUN/Creatinine Ratio 6.0 L Glucose 136 H Calcium 8.8 Urine Color Yellow Urine Clarity Sl. Cloudy Urine pH 8.0 Ur Specific [place] 1.010 Urine Protein 100 H Urine Glucose (UA) 250 H Urine Ketones Negative Urine Occult Blood 10 H Urine Nitrite Negative Urine Bilirubin Negative Urine Urobilinogen Normal Ur Leukocyte Esterase Negative Urine RBC 0-5 SEEN Urine WBC 0 SEEN Ur Squamous Epith Cells 0-5 SEEN Urine Bacteria RARE Urine Mucus 0 SEEN POC Glucose 02/28/18 02/28/18 17:57 15:38 POC Glucose 84 148 H Assessment/Plan All Active Problems (Last Updated 02/27/18 @ 10:29 by Pricila Olson) Nausea & vomiting (Acute) Migraine (Acute) Metabolic encephalopathy (Acute) Abnormal electrocardiogram [ECG] [EKG] (Acute) Chest pain (Resolved) Tooth abscess (Resolved) Intractable nausea and vomiting (Resolved) Pneumonia (Resolved) Pulmonary edema (Resolved) Hyperkalemia (Resolved) Atypical chest pain (Resolved) Acute hypoxic respiratory failure (Resolved) Pulmonary edema (Resolved) Clostridium difficile enterocolitis (Resolved) Necrotizing myositis (Resolved) S/P repair of PDA (patent ductus arteriosus) (Resolved) Dysmenorrhea (Resolved) Hx of necrotizing fascIItis (Resolved) Iron deficiency anemia due to chronic blood loss (Resolved) Systolic congestive heart failure (Resolved) ESRD. HD as per schedule, tomorrow Hyperkalemia. hemolyzed sample. repeat K is better Anemia. ESTUARDO with HD will follow
--- NOTE | 2018-02-28 18:24 | CON.PCM_ITS ---
Problem List (1) ESRD (end stage renal disease) on dialysis Status: Chronic Consultation - Renal 02/28/18 PCP/ Referring MD: Requesting physician: Dr Lucas Primary care physician: Christopher Foy Reason for Consultation:: ESRD - History of Present Illness History of Present Illness: The patient is a 42 year old F well known to us. ESRD on HD TTS schedule. was recently in hospital with chest pain, breathing issues. ended up having a stent placed by cardiology. She went home, started feeling sick and came back with nausea vomitings and abdominal discomfort. was found to be hyperkalemic. - Allergies Allergies: Allergies latex Allergy (Verified 02/28/18 10:07) Rash levofloxacin [From Levaquin] Adverse Reaction (Verified 02/28/18 10:07) PT CAN'T REMEMBER PT CAN'T REMEMBER metoclopramide HCl [From Reglan] Adverse Reaction (Verified 02/28/18 10:07) Nausea NSAIDS (Non-Steroidal Anti-Inflamma Adverse Reaction (Verified 02/28/18 10:07) kidney function oxycodone HCl [From Percocet] Adverse Reaction (Verified 02/28/18 10:07) HALLUCINATIONS - Current Medications Current Medications: Current Medications Acetaminophen (Tylenol) 650 mg PO Q6H PRN PRN PRN Reason: PAIN Last Admin: 02/28/18 15:32 Dose: 650 mg Alprazolam (Xanax) 0.5 mg PO DAILY [facility] Aspirin (Aspirin, Baby) 81 mg PO DAILY@0800 [facility] Atorvastatin Calcium (Lipitor) 20 mg PO QHS [facility] Calcium Acetate (Phoslo Gel Cap) 1,334 mg PO TIDCM [facility] Last Admin: 02/28/18 17:58 Dose: 1,334 mg Carvedilol (Coreg) 25 mg PO BID [facility] Clopidogrel Bisulfate (Plavix) 75 mg PO DAILY [facility] Dicyclomine HCl (Bentyl) 20 mg PO 4X/DAY PRN PRN PRN Reason: distress Ergocalciferol (Vitamin D) 50,000 unit PO Fr@1000 [facility] Fluoxetine HCl (Prozac) 40 mg PO DAILY [facility] Heparin Sodium (Porcine) (Heparin Na) 5,000 unit SC Q8 [facility] Sodium Chloride () 250 mls @ 15 mls/hr IV .[id number] PRN PRN Reason: SALINE FLUSH Insulin Glargine (Lantus (Bkc)) 5 units SC QHS [facility] Insulin Human Lispro (Humalog Kwikpen ([facility])) 10 unit SC TIDCM [facility] Last Admin: 02/28/18 17:58 Dose: Not Given Isosorbide Mononitrate (Imdur) 60 mg PO DAILY [facility] Magnesium Hydroxide (Milk Of Magnesia) 30 ml PO DAILY PRN PRN PRN Reason: Constipation Ondansetron HCl (Zofran Odt) 4 mg PO Q8H PRN PRN PRN Reason: NAUSEA Ondansetron HCl (Zofran) 4 mg IV Q8H PRN PRN PRN Reason: NAUSEA/VOMITING Last Admin: 02/28/18 15:32 Dose: 4 mg Pantoprazole Sodium (Protonix) 20 mg PO DAILY [facility] Promethazine HCl (Phenergan Tablet) 25 mg PO Q6H PRN PRN PRN Reason: NAUSEA Sodium Bicarbonate (Sodium Bicarbonate) 650 mg PO TUTHSA [facility] Sodium Chloride () 5 - 30 ml IV UD PRN PRN Reason: SALINE FLUSH Last Admin: 02/28/18 15:31 Dose: 20 ml - Past Medical History Past Medical History (Chronic Problems): Chronic Problems (Last Updated 02/27/18 @ 10:29 by Pricila Olson) Stented coronary artery (Chronic 02/26/18) FFR of LAD 0.82; VIKY of mid LAD with 2.5 X 24 mm Promus Synergy, OM <50% stenosis per Dr. Magdaleno @ [facility] Atherosclerotic heart disease of [place] coronary artery without angina pectoris (Chronic) FFR of LAD 0.82; VIKY of mid LAD with 2.5 X 24 mm Promus Synergy, OM <50% stenosis per Dr. Magdaleno @ [facility] ESRD (end stage renal disease) on dialysis (Chronic) Decubitus ulcer, stage III (Chronic) Anemia, chronic disease (Chronic) Pilonidal cyst with abscess (Chronic) GABRIEL (obstructive sleep apnea) (Chronic) Depression (Chronic) Anxiety (Chronic) HTN (hypertension) (Chronic) Nonischemic cardiomyopathy (Chronic) With ejection fraction 45 - 50%; with angiographically normal coronary arteries 05/2013; follows up with Dr. Magdaleno Diabetes mellitus type 1 (Chronic) Hyperlipidemia (Chronic) Obesity (BMI 30.0-34.9) (Chronic) Gastroparesis (Chronic) - Past Surgical History Surgical History: appendectomy, hysterectomy - and BSO, - - c-sections, L breast I+D for abscess, fistula placement LUE, L ankle surgery, appendectomy, PDA repair. Excision pilonidal cyst ulcer about 4 years ago. Colostomy placed due to rectal abscess/wound, patent ductus repair - Social History Smoking Status: Former smoker - Family History Maternal History Items: Cancer, COPD, Diabetes, Hypertension, Renal Disease, Stroke Paternal History Items: Diabetes Sibling History Items: Cancer, Diabetes Review of Systems Constitutional: Denies: Chills, Fever, Weight Change HEENT: Denies: Head Aches, Sinus Congestion, Sinus Drainage Cardiovascular: Denies: Chest Pain, Palpitations Respiratory: Denies: Cough, Shortness of breath at rest, Sputum production Gastrointestinal: Denies: Abdominal Pain, Nausea, Vomiting Genitourinary: Denies: Dysuria Musculoskeletal: Denies: Joint Pain, Joint Tenderness Skin: Denies: Rash, Wounds Neurological: Denies: Numbness, Tingling, Focal weakness Psychiatric: Denies: Anxiety, Depression, Homicidal Ideations, Suicidal Ideations Hematologic/ Lymphatic: Denies: Easy Bruising, Easy Bleeding Patient Problems: Active and Suspected Problems (Last Updated 02/27/18 @ 10:29 by Pricila Olson) Nausea & vomiting (Acute) - Physical Exam General: Alert, Oriented x3, Cooperative HEENT: Atraumatic, PERRLA, EOMI, Normocephalic Neck: Supple, No JVD, Negative Carotid Bruits Lungs: Clear to auscultation, Normal air movement Cardiovascular: Regular rate, No murmurs Abdomen: Bowel Sounds Present, Soft, Non Tender Extremities: No edema, Capillary Refill Less than 3 Seconds Skin: No rashes, No breakdown Musculoskeletal: No Tenderness to Palpation of Joints or Extremities Neurological: Cranial nerves II-XII grossly intact Psych/Mental Status: Normal Affect, Appropriate Vital Signs Temp Pulse Resp BP Pulse Ox 97.9 F 75 19 H 152/83 H 95 02/28/18 18:00 02/28/18 18:00 02/28/18 18:00 02/28/18 18:00 02/28/18 18:00 Oxygen Delivery Method Room Air Weight: 88.4 kg Body Mass Index (BMI) 31.4 Intake and Output for Last 24 Hours 02/26/18 02/27/1802/28/18 23:59 23:59 23:59 Intake Total 400 / 400 Output Total 950 / 950 Balance -550 / -550 Laboratory Tests Past 24 Hrs 02/28/18 02/28/18 15:45 16:45 Sodium 139 Potassium 4.0 Chloride 102 Carbon Dioxide 28.0 Anion Gap 9 BUN 36 H Creatinine 6.05 H Estim Creat Clear Calc 11.11 Est GFR (MDRD) Af Amer 10 L Est GFR (MDRD) Non-Af 8 L BUN/Creatinine Ratio 6.0 L Glucose 136 H Calcium 8.8 Urine Color Yellow Urine Clarity Sl. Cloudy Urine pH 8.0 Ur Specific [place] 1.010 Urine Protein 100 H Urine Glucose (UA) 250 H Urine Ketones Negative Urine Occult Blood 10 H Urine Nitrite Negative Urine Bilirubin Negative Urine Urobilinogen Normal Ur Leukocyte Esterase Negative Urine RBC 0-5 SEEN Urine WBC 0 SEEN Ur Squamous Epith Cells 0-5 SEEN Urine Bacteria RARE Urine Mucus 0 SEEN POC Glucose 02/28/18 02/28/18 17:57 15:38 POC Glucose 84 148 H Assessment/Plan All Active Problems (Last Updated 02/27/18 @ 10:29 by Pricila Olson) Nausea & vomiting (Acute) Migraine (Acute) Metabolic encephalopathy (Acute) Abnormal electrocardiogram [ECG] [EKG] (Acute) Chest pain (Resolved) Tooth abscess (Resolved) Intractable nausea and vomiting (Resolved) Pneumonia (Resolved) Pulmonary edema (Resolved) Hyperkalemia (Resolved) Atypical chest pain (Resolved) Acute hypoxic respiratory failure (Resolved) Pulmonary edema (Resolved) Clostridium difficile enterocolitis (Resolved) Necrotizing myositis (Resolved) S/P repair of PDA (patent ductus arteriosus) (Resolved) Dysmenorrhea (Resolved) Hx of necrotizing fascIItis (Resolved) Iron deficiency anemia due to chronic blood loss (Resolved) Systolic congestive heart failure (Resolved) ESRD. HD as per schedule, tomorrow Hyperkalemia. hemolyzed sample. repeat K is better Anemia. ESTUARDO with HD will follow
[2018-02-28] MEDS: Atorvastatin Calcium 20 MG Tablet PO (21:12)
[2018-02-28] MEDS: Aspirin 325 MG Tablet PO (21:12)
[2018-02-28] MEDS: Carvedilol 25 MG Tablet PO (21:12)
[2018-02-28] MEDS: Heparin Injection (Vial) 5,000 UNIT/ML VIAL 5000 UNIT SC (21:13)
[2018-02-28] MEDS: proMETHazine 25 MG Tablet PO (21:13)
[2018-02-28 21:14] LABS: D-Dimer Quantitative (DVT/PE) 0.34 FEU/ug/m (0.27-0.49)
[2018-02-28 21:26] LABS: Bedside Glucose 86 mg/dL (70-110)
[2018-03-01] VITALS (11 sets, daily range): BP systolic 115–158; BP diastolic 59–77; PULSE 75–87; RESP 16–21; TEMP 36.4–37.1; O2SAT 86–99
[2018-03-01] MEDS: 0.9% NaCl Peripheral Flush Adult/Peds IV ×2 (01:40→02:39)
[2018-03-01] MEDS: Ondansetron 4 MG/2 ML Vial IV (02:35)
[2018-03-01 02:51] LABS: Absolute Lymphocyte Count 1.37 X10^3/ul (0.83-4.51); Absolute Neutrophil Count 4.3 X10^3/uL (2.0-7.7); Basophil# 0.02 X10^3/uL; Basophil% 0.3 % (0-1); Eosinophils% 6.2 % (0-5); Hematocrit 36.6 % (37-47); Hemoglobin 11.8 g/dl (12.0-15.0); Lymphocyte # 1.37 X10^3/ul (4.0); Lymphocyte % 21.1 % (19-41); Mean Corp Hgb Conc 32.2 g/gl (32-36); Mean Corpuscular Hgb 32.7 pg (27.0-32.0); Mean Corpuscular Volume 101.4 fL (81-99); Mean Platelet Vol. 8.8 fl (6.2-12.0); Monocyte# 0.39 X10^3/uL; Neutrophil # 4.28 X10^3/uL (2.7-7.7); Neutrophil % 66.1 % (47-70); Platelet Count 114 K/mm3 (150-450); RBC Distribution Width CV 15.5 % (11.6-14.6); RBC Distribution Width SD 56.5 fl (35.1-43.9); Red Blood Count 3.61 M/mm3 (4.2-5.4); White Blood Count 6.5 K/mm3 (4.4-11.0)
[2018-03-01 02:56] LABS: POSITIVE COUNT NO; POSITIVE DIFFERENTIAL NO; POSITIVE MORPHOLOGY NO
[2018-03-01 03:07] LABS: Albumin, Serum 2.9 g/dL (3.2-5.0); BUN 45 mg/dL (7-18); BUN/Creat Ratio 6.6 RATIO (10-20); Calcium,Total 8.8 mg/dL (8.5-10.1); Chloride 102 mmol/L (98-107); Creatinine, Serum 6.85 mg/dL (0.55-1.02); EST Glomerular Filtration Rate 7 mL/min (>60); Est Glom Filt Rate - Afr Amer 8 mL/min (>60); Estimated Creatinine Clearance 9.81 ml/min; Glucose 201 mg/dL (74-106); Phosphorus 6.6 mg/dL (2.5-4.9); Potassium 4.9 mmol/L (3.5-5.1); Sodium Level 139 mmol/L (136-145)
--- NOTE | 2018-03-01 04:57 | NURSING ---
All charting completed by SN Thomas reviewed by this RN. This RN agrees with all charting 02/28/18- 03/01/18
[2018-03-01] MEDS: Heparin Injection (Vial) 5,000 UNIT/ML VIAL 5000 UNIT SC (05:59)
[2018-03-01] MEDS: Acetaminophen 325 MG Tablet 650 MG PO (05:59)
[2018-03-01] MEDS: Lidocaine/Prilocaine HCl 5 GM Tube 1 GM TOPICAL (07:11)
[2018-03-01] MEDS: Insulin Lispro 100 UNIT/ML INSULN.PEN 10 UNIT SC ×2 (08:25→12:38)
[2018-03-01 08:31] LABS: Bedside Glucose 170 mg/dL (70-110)
--- NOTE | 2018-03-01 10:29 | NURSING ---
O2 sat normal when pt awake or only drowsy. hx of sleep apnea with use of cpap that is not here - O2 sat desats when pt asleep - 4L applied BNC while pt is sleeping
--- NOTE | 2018-03-01 11:18 | PCM.PN.BLA ---
Progress Note seen on dialysis bp 135/65 s1s2 clear no edema lungs clear
--- NOTE | 2018-03-01 11:43 | DCINST_ITS ---
- Discharge Diagnoses Current Active Problems: Current Active and Chronic Problems (Last Updated 02/27/18 @ 10:29 by Pricila Olson ) Nausea & vomiting (Acute) You will use the following diet at home:: Cardiac, Renal (restricted protein/ sodium) Your food should be the consistency of: Regular Your liquids should be the consistency of: Regular/Thin Discharge Activity: Return to Normal Activity Weight Bearing Status: Weight bearing as tolerated Call your doctor if you observe: Shortness of breath, Dizziness, Swelling in the ankles Allergies/Adverse Reactions: Allergies latex Allergy (Verified 02/28/18 10:07) Rash levofloxacin [From Levaquin] Adverse Reaction (Verified 02/28/18 10:07) PT CAN'T REMEMBER PT CAN'T REMEMBER metoclopramide HCl [From Reglan] Adverse Reaction (Verified 02/28/18 10:07) Nausea NSAIDS (Non-Steroidal Anti-Inflamma Adverse Reaction (Verified 02/28/18 10:07) kidney function oxycodone HCl [From Percocet] Adverse Reaction (Verified 02/28/18 10:07) HALLUCINATIONS Medications to take at Discharge Aspirin [Aspirin, Baby] 81 mg PO DAILY@0800 01/26/16 Calcium Acetate [Phoslo Gel Cap] 1,334 mg PO TIDCM 01/26/16 Ergocalciferol [Vitamin D] 50,000 unit PO FR 01/26/16 Insulin Aspart [Novolog Flexpen] 10 units SC TIDCM 01/26/16 Insulin Glargine,Hum.rec.anlog [Lantus] 5 unit SQ QHS 01/09/17 proMETHazine tablet [Phenergan tablet] 25 mg PO Q6H PRN PRN #10 tablet 03/06/17 Lisinopril 20 mg PO DAILY 03/29/17 Sodium Bicarbonate 650 mg PO TUTHSA 03/29/17 Carvedilol [Coreg (Beta Chang)] 25 mg PO BID 06/17/17 Fluoxetine HCl 40 mg PO DAILY 09/02/17 ALPRAZolam [Xanax] 0.5 mg PO DAILY 11/21/17 Ondansetron [Zofran Odt] 4 mg PO Q8H PRN PRN #10 tablet 01/27/18 Dicyclomine HCl [Bentyl] 20 mg PO 4X/DAY PRN PRN 02/08/18 Omeprazole Magnesium [Prilosec Otc] 20 mg PO DAILY 02/08/18 Clopidogrel Bisulfate [Plavix] 75 mg PO DAILY #90 tab 02/27/18 Isosorbide Mononitrate [Isosorbide Mononitrate ER] 60 mg PO DAILY 02/28/18 Atorvastatin Calcium 40 mg PO QHS #30 tab 03/01/18 The following prescriptions were given: Atorvastatin Calcium 40 mg PO QHS #30 tab Primary Care Physician: Christopher Foy MD [Primary Care Provider] - Please follow up with your Primary Care Physician in: one week Test Results: Test results from this visit will be discussed in further detail at your follow- up appointment, if applicable. Please Follow Up With: Mark Magdaleno MD When: 1-2 weeks Please Follow Up With: Chey Maritnez MD When: 1 week Proposed Discharge Date: 03/01/18
--- NOTE | 2018-03-01 11:43 | PCM.DC.SUM ---
Discharge Date and Diagnosis Date of Admission: 02/28/18 Date of Discharge: 03/01/18 - Primary Discharge Diagnosis Active and Suspected Problems (Last Updated 02/27/18 @ 10:29 by Pricila Olson) Nausea & vomiting (Acute) - Secondary Discharge Diagnosis Chronic Problems (Last Updated 02/27/18 @ 10:29 by Pricila Olson) Stented coronary artery (Chronic 02/26/18) FFR of LAD 0.82; VIKY of mid LAD with 2.5 X 24 mm Promus Synergy, OM <50% stenosis per Dr. Magdaleno @ [facility] Atherosclerotic heart disease of [place] coronary artery without angina pectoris (Chronic) FFR of LAD 0.82; VIKY of mid LAD with 2.5 X 24 mm Promus Synergy, OM <50% stenosis per Dr. Magdaleno @ [facility] ESRD (end stage renal disease) on dialysis (Chronic) Decubitus ulcer, stage III (Chronic) Anemia, chronic disease (Chronic) Pilonidal cyst with abscess (Chronic) GABRIEL (obstructive sleep apnea) (Chronic) Depression (Chronic) Anxiety (Chronic) HTN (hypertension) (Chronic) Nonischemic cardiomyopathy (Chronic) With ejection fraction 45 - 50%; with angiographically normal coronary arteries 05/2013; follows up with Dr. Magdaleno Diabetes mellitus type 1 (Chronic) Hyperlipidemia (Chronic) Obesity (BMI 30.0-34.9) (Chronic) Gastroparesis (Chronic) Hospital Course and Treatment nephrology- Dr Martinez Operations: None Procedures: None Summary of Care Provided: The patient is a 42 year old F extensive past medical history of CAD status post stents done on 02/26/2018, ESRD on hemodialysis Saturdays, anemia of chronic disease, nonischemic cardiomyopathy with EF of 45-50%, diabetes, hypertension, hyperlipidemia, gastroparesis. She was admitted via the ED on 02/28/2018 with complaint of nausea and vomiting of 1 day duration. Patient was recently admitted to the hospital And managed for unstable angina. She underwent cardiac catheterization was found to have single vessel CAD of the mid LAD was status post PTCA and drug-eluting stents to mid LAD. She was discharged on 02/27/2018 after having dialysis for 2 consecutive days. Patient states when she got home, in the evening she started having nausea and vomiting and could not keep anything down. She had an associated fever of 100.7 Fahrenheit. 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 She had no associated chest pain, abdominal pain, cough or shortness of breath no diarrhea. She therefore came into the ED. Vitals in the ED showed temperature of 97.2 Fahrenheit, blood pressure of 153/77, pulse rate of 83 respiratory rate of 26. Labs done in the ED showed sodium of 134 and potassium of 6.2 with mild hemolysis, creatinine of 5.82, CBC showed hemoglobin of 12.7 and WBC of 9.2. Chest x-ray was unremarkable and brain CT was also unremarkable. She was admitted to be managed for nausea and vomiting of unclear etiology. She had had dialysis for 2 days in a row prior to discharge, and got only a few pounds below her dry weight upon discharge. Symptoms had resolved at time of review. She was admitted and managed for nausea and vomiting, with unclear etiology. Symptoms had resolved at time of review. She remained stable and had a mild migraine headache which resolved with one tablet of [place]. Nephrology was consulted o/a of patient being on dialysis. She had dialysis on 03/01/18 and was discharged home on 03/01/18 after dialysis. She is to follow-up with her PCP and nephrology as well as cardiology. Patient seen and examined prior to discharge. She had no complaints and felt well. Nausea and vomiting had occurred. She denied any fever chills, any cough or chest pain, any shortness of breath, no abdominal pain, any diarrhea or vomiting. 12 point review of systems otherwise negative. Labs and vitals reviewed. o/e: Vital Signs Height 5 ft 6 in Weight: 194 lb 14.218 oz Weight in Pounds 194.9 lbs Pulse Ox 99 Temperature 98.8 F Pulse Rate 84 Respiratory Rate 18 Blood Pressure 158/77 Blood Pressure Position Semi-Fowlers General: Alert, Oriented x3, Cooperative, No apparent distress HEENT: Atraumatic, PERRLA, EOMI, Normocephalic Oral: Moist Mucosa Neck: Supple, No JVD, Negative Carotid Bruits Lungs: Clear to auscultation, Normal air movement, No rhonchi, No wheeze, No rales Cardiovascular: Regular rate, Regular Rhythm, Normal S1, Normal S2, No murmurs Abdomen: Bowel Sounds Present, Soft, Non Tender, Non-Distended, No Hepato-splenomegaly, Passing Flatus, - - colostomy bag contains loose stool Extremities: No clubbing, No cyanosis, No edema, Capillary Refill Less than 3 Seconds. LUE AV fistula in forearm with good thrill Skin: No rashes, No breakdown Musculoskeletal: No Tenderness to Palpation of Joints or Extremities Lymphatic: No Cervical, Supraclavicular, or Inguinal Adenopathy Neurological: Cranial nerves II-XII grossly intact, Motor Exam 5/5 strength throughout Psych/Mental Status: Normal Affect, Appropriate, Alert and oriented to time, place, person, mood and affect Home medications reviewed and reconciled prior to discharge. Plan as stated above. [] Discharge Diet: Renal Diet Discharge Activity: Return to Normal Activity Weight Bearing Status: Weight bearing as tolerated Call your doctor if you observe: Shortness of breath, Dizziness, Swelling in the ankles Home Medications: Medications to take at Discharge Aspirin [Aspirin, Baby] 81 mg PO DAILY@0800 01/26/16 Calcium Acetate [Phoslo Gel Cap] 1,334 mg PO TIDCM 01/26/16 Ergocalciferol [Vitamin D] 50,000 unit PO FR 01/26/16 Insulin Aspart [Novolog Flexpen] 10 units SC TIDCM 01/26/16 Insulin Glargine,Hum.rec.anlog [Lantus] 5 unit SQ QHS 01/09/17 proMETHazine tablet [Phenergan tablet] 25 mg PO Q6H PRN PRN #10 tablet 03/06/17 Lisinopril 20 mg PO DAILY 03/29/17 Sodium Bicarbonate 650 mg PO TUTHSA 03/29/17 Carvedilol [Coreg (Beta Chang)] 25 mg PO BID 06/17/17 Fluoxetine HCl 40 mg PO DAILY 09/02/17 ALPRAZolam [Xanax] 0.5 mg PO DAILY 11/21/17 Ondansetron [Zofran Odt] 4 mg PO Q8H PRN PRN #10 tablet 01/27/18 Dicyclomine HCl [Bentyl] 20 mg PO 4X/DAY PRN PRN 02/08/18 Omeprazole Magnesium [Prilosec Otc] 20 mg PO DAILY 02/08/18 Clopidogrel Bisulfate [Plavix] 75 mg PO DAILY #90 tab 02/27/18 Isosorbide Mononitrate [Isosorbide Mononitrate ER] 60 mg PO DAILY 02/28/18 Atorvastatin Calcium 40 mg PO QHS #30 tab 03/01/18 Following Prescrptions Were Given to Patient: Atorvastatin Calcium 40 mg PO QHS #30 tab Primary Care Physician: Christopher Foy MD [Primary Care Provider] - Please follow up with your Primary Care Physician in: one week Please Follow Up With: Mark Magdaleno MD When: 1-2 weeks Please Follow Up With: Chey Martinez MD When: 1 week Disposition: Home Minutes spent on discharge:: 35 Patient Condition:: Stable Medical Necessity - Tobacco Use Smoking Status: Former smoker Meaningful Use Info Meaningful Use Diagnoses (Choose all that apply): None applicable Code Visit Inpatient E&M: 94497 Disch Hosp
--- NOTE | 2018-03-01 12:27 | DIALYSIS ---
HD X 3.5 HRS ON A 2K BATH. UF -1500ML. TOLERATED TREATMENT WELL. VITALS STABLE DURING DIALYSIS. VENOFER 50MG IV GIVEN. STASIS AT [facility]. REPORT TO AKUA TEJADA
[2018-03-01 12:30] LABS: Bedside Glucose 159 mg/dL (70-110)
[2018-03-01] MEDS: Aspirin 81 MG TAB.CHEW PO (12:36)
[2018-03-01] MEDS: Pantoprazole Sodium 20 MG Tablet PO (12:36)
[2018-03-01] MEDS: Carvedilol 25 MG Tablet PO (12:36)
[2018-03-01] MEDS: FLUoxetine 20 MG Capsule 40 MG PO (12:37)
[2018-03-01] MEDS: Isosorbide Mononitrate 60 MG Tablet PO (12:37)
[2018-03-01] MEDS: Sodium Bicarbonate 650 MG Tablet PO (12:38)
[2018-03-01] MEDS: Clopidogrel Bisulfate 75 MG Tablet PO (12:38)
[2018-03-01] MEDS: Calcium Acetate 667 MG Capsule 1334 MG PO (12:38)
[2018-03-01] MEDS: ALPRAZolam 0.5 MG Tablet PO (12:44)
--- NOTE | 2018-03-02 13:15 | CASEMGMT ---
Pt was discharged and left the hospital prior to SW speaking w/her. SW called pt today and left a message to call this SW. SW to discuss palliative referral w/pt should she return call. FRANCISCO Andrade, MANAGER [employer]CING
== END 2018-03-01 13:35 | disposition home or self-care (01) ==
LOC: ED 11:03 → ICU 13:48
PROVIDERS: Hospitalist; Admitting Provider Student in an Organized Health Care Education/Training Program; Emergency Provider Emergency Medicine; Family Provider Family Medicine; PCP Family Medicine; Visit Provider Student in an Organized Health Care Education/Training Program
DX: R11.2 Nausea with vomiting, unspecified (principal); R42 Dizziness and giddiness; I25.10 Atherosclerotic heart disease of native coronary artery without angina pectoris; E10.22 Type 1 diabetes mellitus with diabetic chronic kidney disease; I12.0 Hypertensive chronic kidney disease with stage 5 chronic kidney disease or end stage renal disease; N18.6 End stage renal disease; Z99.2 Dependence on renal dialysis; E78.5 Hyperlipidemia, unspecified; G47.33 Obstructive sleep apnea (adult) (pediatric); E87.5 Hyperkalemia; Z95.5 Presence of coronary angioplasty implant and graft; I42.9 Cardiomyopathy, unspecified; D63.8 Anemia in other chronic diseases classified elsewhere; K31.84 Gastroparesis; Z87.891 Personal history of nicotine dependence; Z79.899 Other long term (current) drug therapy; Z79.4 Long term (current) use of insulin; Z79.82 Long term (current) use of aspirin; Z79.02 Long term (current) use of antithrombotics/antiplatelets; E66.9 Obesity, unspecified; Z68.31 Body mass index [BMI] 31.0-31.9, adult; Z71.3 Dietary counseling and surveillance; Z93.3 Colostomy status; D50.0 Iron deficiency anemia secondary to blood loss (chronic)
CPT/HCPCS: 70450; 71045; 80048; 80069; 80076; 81001; 82962; 83690; 84484; 85025; 85379; 85610; 85730; 90937; 93005; 96361; 96372; 96374; 96375; 96376; 99218; 99285; J1756; J7030; J7040; A4216; G0257; G0378; J0610; J2405

== ENCOUNTER 2018-03-06 15:01 | Emergency (ER) | payer MEDICARE, MEDICAID, SELFPAY ==
[2018-03-06 15:04] VITALS: BP 179/88; PULSE 90; RESP 15; TEMP 36.6; O2SAT 99; BMI 32.2
--- NOTE | 2018-03-06 15:42 | ED.VISSUMM ---
- ER Visit Summary Date of Service: 03/06/18 Chief Complaint: Bleeding from fistula History of Present Illness: The patient is a 42 F who presents with bleeding from her dialysis fistula that began today. Patient states they held pressure on the site for over an hour with no improvement of the bleeding. Patient states she went through several gauze dressings. Patient recently had a cardiac stent placed and was started on Plavix after that. Patient also admits to some abdominal pain and nausea. Patient denies any vomiting. Patient admits to some diarrhea through her colostomy. Patient denies any chest pain or shortness of breath. Patient does admit to a headache and some generalized anxiety. Patient states she did not take her Xanax prior to her dialysis treatment today. Physical Examination: Vital signs are stable. Patient is afebrile. Patient is in no acute distress. Oral mucosa is pink and moist. Neck is supple. Trachea is midline. There is no JVD noted. Heart was regular rate and rhythm. Lungs are clear and equal bilaterally. There is good respiratory effort noted. Abdomen is soft. Bowel sounds are normal. There is diffuse tenderness. There is no rebound or guarding noted. Extremities are intact. There is still bleeding from the fistula site. Gauze dressing was applied. Cranial nerves II through XII are intact. There are no focal motor or sensory deficits noted. The remaining physical exam is within normal limits. Test Results: Acute abdominal x-rays showed a mild right lower quadrant ileus. There is no obstruction or free air. CBC and comprehensive metabolic profile were obtained and were essentially within normal limits insertion of an elevated BUN and creatinine of 46 and 5.73. INR was normal at 1.1. Urinalysis does not show any evidence of urinary tract infection. Emergency Department Course and Treatment: Dressing was applied to the fistula site. The bleeding had stopped while here in the emergency department. Patient felt better on reevaluation. Patient was instructed to follow-up with her primary care physician in 5-7 days. Patient understood and was agreeable with the plan. All questions were answered. Disposition: Discharged home Impression: Bleeding from dialysis fistula This note was generated with [employer] dictation software. It may contain incorrect words, spelling, and punctuation that were not noted in review of the chart prior to signing ED Disposition - Plan for ED Patient: Disposition: Home or Assisted Living Chief Complaint: General Illness Diagnosis: Hemorrhage of arteriovenous fistula Instructions: ED Shunt Dialysis Fistula Bleeding Referrals: Christopher Foy MD [Primary Care Provider] -
[2018-03-06 15:59] LABS: Bacteria 0 SEEN /hpf (None Seen); Mucous, Urine 0 SEEN /hpf (<or=2+)
[2018-03-06] MEDS: Ondansetron 4 MG/2 ML Vial IV (15:59)
[2018-03-06] MEDS: Morphine 4 MG/ML Syringe IV (15:59)
[2018-03-06 16:19] LABS: Color, Urine Straw (Yellow); Glucose, Dipstick 250 mg/dl (Normal); Ketone-Dipstick Negative (Negative); Leukocyte Esterase-Dipstick Negative /ul (Negative); Nitrite-Dipstick Negative (Negative); Occult Blood-Urine 50 /ul (Negative); Protein-Dipstick 100 mg/dl (Negative); Specific Gravity, Urine 1.015 (1.002-1.030); Urine Bilirubin Dipstick Negative (Negative); Urine Clarity Sl. Cloudy (Clear); Urine Urobilinogen Normal (Normal)
[2018-03-06] MEDS: ALPRAZolam 0.5 MG Tablet PO (16:22)
[2018-03-06 16:25] LABS: Absolute Lymphocyte Count 1.29 X10^3/ul (0.83-4.51); Absolute Neutrophil Count 3.3 X10^3/uL (2.0-7.7); Basophil# 0.02 X10^3/uL; Basophil% 0.4 % (0-1); Eosinophil# 0.29 X10^3/uL; Eosinophils% 5.6 % (0-5); Hematocrit 36.2 % (37-47); Hemoglobin 12.1 g/dl (12.0-15.0); Lymphocyte # 1.29 X10^3/ul (4.0); Lymphocyte % 24.9 % (19-41); Mean Corp Hgb Conc 33.4 g/gl (32-36); Mean Corpuscular Hgb 32.1 pg (27.0-32.0); Mean Platelet Vol. 8.5 fl (6.2-12.0); Monocyte# 0.27 X10^3/uL; Monocyte% 5.2 % (0-10); Neutrophil # 3.31 X10^3/uL (2.7-7.7); Neutrophil % 63.7 % (47-70); Platelet Count 173 K/mm3 (150-450); RBC Distribution Width CV 14.7 % (11.6-14.6); RBC Distribution Width SD 49.1 fl (35.1-43.9); Red Blood Count 3.77 M/mm3 (4.2-5.4); White Blood Count 5.2 K/mm3 (4.4-11.0)
[2018-03-06 16:26] LABS: POSITIVE COUNT NO; POSITIVE DIFFERENTIAL NO; POSITIVE MORPHOLOGY NO
[2018-03-06 16:35] LABS: ALB/GLOB Ratio 0.6 RATIO (0.9-2.4); AST(SGOT) 15 U/L (15-37); Alanine Aminotransfer ALT/SGPT 26 U/L (13-56); Albumin, Serum 2.8 g/dL (3.2-5.0); Alkaline Phosphatase 90 U/L (45-117); Anion Gap 8 (5-15); BUN 46 mg/dL (7-18); Calcium,Total 7.9 mg/dL (8.5-10.1); Chloride 101 mmol/L (98-107); Creatinine, Serum 5.73 mg/dL (0.55-1.02); EST Glomerular Filtration Rate 9 mL/min (>60); Est Glom Filt Rate - Afr Amer 10 mL/min (>60); Estimated Creatinine Clearance 11.73 ml/min; Globulin 4.6 g/dL (2.2-4.2); Glucose 236 mg/dL (74-106); Lipase 309 U/L (73-393); Potassium 3.6 mmol/L (3.5-5.1); Protein, Total 7.4 g/dL (6.4-8.2); Sodium Level 140 mmol/L (136-145)
[2018-03-06 16:41] LABS: International Normalized Ratio 1.1; Partial Thromboplast Time 30.3 Seconds (24.1-36.2); Prothrombin Time (Protime)PT. 14.6 SECONDS (11.7-14.9)
[2018-03-06 16:58] LABS: Squamous Epithelial Cells - UA 0-5 SEEN /hpf (5-10)
[2018-03-06 16:59] LABS: Red Blood Cells-Urine 0-5 SEEN /hpf (0-5); White Blood Cells 0-5 SEEN /hpf (0-5)
[2018-03-06 17:57] VITALS: BP 201/86; PULSE 88; RESP 16; O2SAT 94
== END 2018-03-06 17:58 | disposition home or self-care (01) ==
PROVIDERS: Emergency Provider Emergency Medicine; Family Provider Family Medicine; PCP Family Medicine
DX: T82.838A Hemorrhage due to vascular prosthetic devices, implants and grafts, initial encounter (principal); R51 Headache; R19.7 Diarrhea, unspecified; R53.1 Weakness; K56.7 Ileus, unspecified; Z93.3 Colostomy status; I25.10 Atherosclerotic heart disease of native coronary artery without angina pectoris; E11.22 Type 2 diabetes mellitus with diabetic chronic kidney disease; I12.0 Hypertensive chronic kidney disease with stage 5 chronic kidney disease or end stage renal disease; N18.6 End stage renal disease; Z99.2 Dependence on renal dialysis; F41.9 Anxiety disorder, unspecified; F32.9 Major depressive disorder, single episode, unspecified; Z95.5 Presence of coronary angioplasty implant and graft; Z79.82 Long term (current) use of aspirin; Z79.4 Long term (current) use of insulin; Z79.02 Long term (current) use of antithrombotics/antiplatelets; Z79.899 Other long term (current) drug therapy
CPT/HCPCS: 74022; 80053; 81001; 83690; 85025; 85610; 85730; 96374; 96375; 99284; A4216; J2405

== ENCOUNTER 2018-03-12 17:46 | Emergency (ER) | payer MEDICARE, MEDICAID, SELFPAY ==
[2018-03-12 17:47] VITALS: BP 168/84; PULSE 86; RESP 18; TEMP 37; O2SAT 96; BMI 31.1
--- NOTE | 2018-03-12 18:18 | ED.VISSUMM ---
- ER Visit Summary Date of Service: 03/12/18 Chief Complaint: Nausea, vomiting, diarrhea History of Present Illness: The patient is a 42 F presenting with nausea, vomiting, diarrhea. She states it started yesterday. She states she ate [place] pizza. 5-6 hours later, she started to feel ill and had vomiting and diarrhea. She states several other people who ate the same pizza also were ill. She denies blood in her stool or emesis. She has diffuse abdominal cramping. She denies fever. Denies chest pain or shortness of breath. She did miss dialysis on Monday but states that she is under her normal dry weight. She has a history of a diverting colostomy. Physical Examination: Vitals are stable. Patient is afebrile. Alert no acute distress. HEENT exam is unremarkable. Neck is supple. Lungs are clear and equal bilaterally. Heart is regular rate and rhythm. Abdomen is soft mild diffuse tenderness with no rebound or guarding. Colostomy Extremities are unremarkable. Skin is warm and dry. No focal neurologic deficit. Remainder of exam is unremarkable. Emergency Department Course and Treatment: Patient given IV fluids, Zofran, morphine. CBC showed hemoglobin 10.0. Chemistries show potassium 5.4, glucose 220, BUN 53, creatinine 8.25. CT abdomen and pelvis shows no evidence of small or large bowel obstruction. Left lower quadrant ostomy. Large fat-containing periumbilical hernia. Extensive atherosclerotic disease of the small vessels of the abdomen and pelvis. Nonspecific bilateral perinephric fat stranding, stable from prior exam. On repeat evaluation, patient is feeling improved. Abdominal exam is soft and nontender. She is requesting to go home. She will follow-up with her dialysis as scheduled tomorrow. She is advised return to ED for any worsening complaints. Disposition: Discharge home Impression: Vomiting and diarrhea This note was generated with [employer] dictation software. It may contain incorrect words, spelling, and punctuation that were not noted in review of the chart prior to signing ED Disposition - Plan for ED Patient: Chief Complaint: Nausea/Vomiting Referrals: Christopher Foy MD [Primary Care Provider] -
[2018-03-12 18:36] LABS: Absolute Lymphocyte Count 1.49 X10^3/ul (0.83-4.51); Absolute Neutrophil Count 5.3 X10^3/uL (2.0-7.7); Basophil# 0.03 X10^3/uL; Basophil% 0.4 % (0-1); Eosinophil# 0.34 X10^3/uL; Eosinophils% 4.5 % (0-5); Hematocrit 31.4 % (37-47); Lymphocyte # 1.49 X10^3/ul (4.0); Lymphocyte % 19.6 % (19-41); Mean Corp Hgb Conc 31.8 g/gl (32-36); Mean Corpuscular Hgb 31.3 pg (27.0-32.0); Mean Corpuscular Volume 98.4 fL (81-99); Mean Platelet Vol. 8.9 fl (6.2-12.0); Monocyte# 0.37 X10^3/uL; Monocyte% 4.9 % (0-10); Neutrophil # 5.33 X10^3/uL (2.7-7.7); Neutrophil % 70.2 % (47-70); POSITIVE COUNT NO; POSITIVE DIFFERENTIAL NO; POSITIVE MORPHOLOGY NO; Platelet Count 181 K/mm3 (150-450); RBC Distribution Width CV 15.3 % (11.6-14.6); RBC Distribution Width SD 54.2 fl (35.1-43.9); Red Blood Count 3.19 M/mm3 (4.2-5.4); White Blood Count 7.6 K/mm3 (4.4-11.0)
[2018-03-12] MEDS: Ondansetron 4 MG/2 ML Vial IV (18:36)
[2018-03-12 18:51] LABS: Anion Gap 9 (5-15); BUN 53 mg/dL (7-18); BUN/Creat Ratio 6.4 RATIO (10-20); Calcium,Total 8.1 mg/dL (8.5-10.1); Chloride 107 mmol/L (98-107); Creatinine, Serum 8.25 mg/dL (0.55-1.02); EST Glomerular Filtration Rate 6 mL/min (>60); Est Glom Filt Rate - Afr Amer 7 mL/min (>60); Estimated Creatinine Clearance 8.15 ml/min; Glucose 220 mg/dL (74-106); Potassium 5.4 mmol/L (3.5-5.1); Sodium Level 140 mmol/L (136-145)
--- NOTE | 2018-03-12 18:52 | NURSING ---
PER LAB CREATININE 8.25 DR NIX MADE AWARE.
[2018-03-12] MEDS: Morphine 4 MG/ML Syringe IV (19:23)
--- NOTE | 2018-03-12 20:04 | ED.DEP ---
ED Disposition - Plan for ED Patient: Chief Complaint: Nausea/Vomiting Instructions: ED Nausea Vomiting Prescriptions: Ondansetron [Zofran Odt] 4 mg PO Q8H PRN PRN #10 tablet PRN Reason: Nausea Referrals: Christopher Foy MD [Primary Care Provider] -
[2018-03-12] MEDS: proMETHazine 25 MG/ML Syringe 6.25 MG IV (20:08)
[2018-03-12 20:24] VITALS: BP 168/86; PULSE 86; RESP 16; O2SAT 95
== END 2018-03-12 20:25 | disposition home or self-care (01) ==
LOC: ED 18:40
PROVIDERS: Emergency Provider Emergency Medicine; Family Provider Family Medicine; PCP Family Medicine
DX: R11.2 Nausea with vomiting, unspecified (principal); R19.7 Diarrhea, unspecified; K42.9 Umbilical hernia without obstruction or gangrene; I25.10 Atherosclerotic heart disease of native coronary artery without angina pectoris; E11.22 Type 2 diabetes mellitus with diabetic chronic kidney disease; I12.0 Hypertensive chronic kidney disease with stage 5 chronic kidney disease or end stage renal disease; N18.6 End stage renal disease; E78.00 Pure hypercholesterolemia, unspecified; Z99.2 Dependence on renal dialysis; Z90.710 Acquired absence of both cervix and uterus; Z79.82 Long term (current) use of aspirin; Z79.4 Long term (current) use of insulin; Z79.02 Long term (current) use of antithrombotics/antiplatelets; Z79.899 Other long term (current) drug therapy
CPT/HCPCS: 74176; 80048; 85025; 96361; 96374; 96375; 99285; J7040; A4216; J2405

== ENCOUNTER 2018-03-17 14:36 | Emergency (ER) | payer MEDICARE, MEDICAID, SELFPAY ==
[2018-03-17 14:40] VITALS: BP 135/70; PULSE 84; RESP 16; TEMP 36.9; O2SAT 95; BMI 32.8
[2018-03-17 14:54] VITALS: O2SAT 97
--- NOTE | 2018-03-17 14:54 | ED.DCSUM_ITS ---
- ER Visit Summary Date of Service: 03/17/18 Chief Complaint: Chest pain History of Present Illness: The patient is a 42 F presents to the emergency department with chest pain. Patient has a history of end-stage renal disease. She is on dialysis. The patient was at dialysis today. She states that she had sudden onset sharp stabbing pain in her mid chest. The patient did have a recent heart catheterization with stent placement. She states that this pain felt different. She has also been nauseated with some bouts of vomiting this week. She has had some loose watery diarrhea. Patient does have recurrent enteritis. She also had C. difficile about 4 months ago. She denies any recent antibiotic use and she denies any fevers but does admit to some chills and sweats. She has been compliant with her medications. Physical Examination: Vital signs reviewed General: Well-nourished, well-developed Head: Normocephalic, atraumatic Eyes: Pupils equal and reactive, extraocular muscles intact Neck, supple, no lymphadenopathy Heart: Regular rate and rhythm Respiratory: No distress, clear bilaterally Abdomen: Soft, nontender, nondistended, no peritoneal signs Back: Nontender Extremities: Nontender, no edema, no cords Skin: Normal color no rash Neuro: Alert and oriented, no focal or lateralizing deficits Test Results: [] Emergency Department Course and Treatment: The patient presents with a stabbing chest pain that occurred during dialysis. By the time she arrived here, the pain had resolved. Her EKG does show inferior T-wave inversions. It was changed from February, but the same from January. Patient was given morphine and remained pain-free. She has had some upper GI type illness with nausea and vomiting. She states she has also had a lot of loose bowel movements and has been emptying her bag more frequently. I did obtain C. difficile. Patient's troponin is indeterminate. However, her pain does not seem cardiac. I did discuss the patient with Dr. Magdaleno, relief pharmacist on-call who actually did her heart catheterization. I have reviewed her heart catheterization. She only had one area with some disease that required intervention. Her pain does seem atypical. She is pain-free. She has outpatient follow-up in place with cardiology this week. Patient again states that this is very different than the chest pain she had with her prior cardiac intervention. Given her recent heart cath, resolution of pain, and clinical stability I do feel that she is safe for outpatient therapy. The patient is comfortable with this plan of care. Treatment Plan: [] Disposition: [] Impression: 1. Atypical chest pain This note was generated with [employer] dictation software. It may contain incorrect words, spelling, and punctuation that were not noted in review of the chart prior to signing ED Disposition - Plan for ED Patient: Chief Complaint: Chest Pain Instructions: ED Chest Pain Atypical Unkn Cause Referrals: Ryan Green MD [STAFF PHYSICIAN] -
[2018-03-17] MEDS: Morphine 4 MG/ML Syringe IV (15:00)
[2018-03-17] MEDS: Ondansetron 4 MG/2 ML Vial IV ×2 (15:00→16:39)
[2018-03-17 15:21] LABS: Absolute Lymphocyte Count 0.84 X10^3/ul (0.83-4.51); Absolute Neutrophil Count 4.2 X10^3/uL (2.0-7.7); Basophil# 0.01 X10^3/uL; Basophil% 0.2 % (0-1); Eosinophil# 0.39 X10^3/uL; Eosinophils% 6.9 % (0-5); Hematocrit 32.9 % (37-47); Hemoglobin 10.5 g/dl (12.0-15.0); Lymphocyte # 0.84 X10^3/ul (4.0); Lymphocyte % 14.8 % (19-41); Mean Corp Hgb Conc 31.9 g/gl (32-36); Mean Corpuscular Hgb 31.2 pg (27.0-32.0); Mean Corpuscular Volume 97.6 fL (81-99); Mean Platelet Vol. 8.7 fl (6.2-12.0); Monocyte# 0.22 X10^3/uL; Monocyte% 3.9 % (0-10); Platelet Count 111 K/mm3 (150-450); RBC Distribution Width CV 16.1 % (11.6-14.6); RBC Distribution Width SD 55.4 fl (35.1-43.9); Red Blood Count 3.37 M/mm3 (4.2-5.4); White Blood Count 5.7 K/mm3 (4.4-11.0)
[2018-03-17 15:29] LABS: ALB/GLOB Ratio 0.6 RATIO (0.9-2.4); AST(SGOT) 20 U/L (15-37); Alanine Aminotransfer ALT/SGPT 35 U/L (13-56); Albumin, Serum 2.9 g/dL (3.2-5.0); Alkaline Phosphatase 106 U/L (45-117); Anion Gap 10 (5-15); BUN 23 mg/dL (7-18); BUN/Creat Ratio 5.7 RATIO (10-20); Calcium,Total 7.5 mg/dL (8.5-10.1); Chloride 96 mmol/L (98-107); Creatinine, Serum 4.07 mg/dL (0.55-1.02); EST Glomerular Filtration Rate 13 mL/min (>60); Est Glom Filt Rate - Afr Amer 15 mL/min (>60); Estimated Creatinine Clearance 16.51 ml/min; Globulin 4.6 g/dL (2.2-4.2); Glucose 261 mg/dL (74-106); Lipase 228 U/L (73-393); Potassium 3.3 mmol/L (3.5-5.1); Protein, Total 7.5 g/dL (6.4-8.2); Sodium Level 138 mmol/L (136-145)
[2018-03-17 15:35] LABS: POSITIVE COUNT NO; POSITIVE DIFFERENTIAL NO; POSITIVE MORPHOLOGY NO
[2018-03-17] MEDS: Acetaminophen 500 MG Tablet 1000 MG PO (16:38)
[2018-03-17] MEDS: Mag Hydrox/Al Hydrox/Simeth 30 ML UDC PO (16:38)
[2018-03-17 16:41] VITALS: BP 147/62; PULSE 77; RESP 18; O2SAT 93
[2018-03-17 17:04] VITALS: PULSE 75; RESP 18; O2SAT 99
== END 2018-03-17 17:05 | disposition home or self-care (01) ==
PROVIDERS: Emergency Provider Emergency Medicine; Family Provider Family Medicine; PCP Family Medicine
DX: R07.89 Other chest pain (principal); R10.9 Unspecified abdominal pain; R11.2 Nausea with vomiting, unspecified; R19.7 Diarrhea, unspecified; I25.10 Atherosclerotic heart disease of native coronary artery without angina pectoris; I25.2 Old myocardial infarction; I12.0 Hypertensive chronic kidney disease with stage 5 chronic kidney disease or end stage renal disease; N18.6 End stage renal disease; Z99.2 Dependence on renal dialysis; Z87.19 Personal history of other diseases of the digestive system; Z95.5 Presence of coronary angioplasty implant and graft; Z79.82 Long term (current) use of aspirin; Z79.02 Long term (current) use of antithrombotics/antiplatelets; Z79.4 Long term (current) use of insulin; Z79.899 Other long term (current) drug therapy
CPT/HCPCS: 71045; 80053; 83690; 84484; 85025; 87493; 93005; 96374; 96375; 96376; 99285; A4216; J2405

== ENCOUNTER 2018-03-25 14:46 | Emergency (ER) | payer MEDICARE, MEDICAID, SELFPAY ==
[2018-03-25 14:47] VITALS: BP 168/84; PULSE 87; RESP 18; TEMP 36.7; O2SAT 97; BMI 31.6
--- NOTE | 2018-03-25 15:26 | ED.DCSUM_ITS ---
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 Patient reports that she has a headache that began yesterday. Is gradually gotten worse. Says sharp, throbbing pain in the frontal location. Is 10 at 10 worsening a 10 currently. Is worsened by light periods relieved by putting a cool rag over her eyes. She denies any change in her vision. No recent injury to her head. She does have a history of similar headaches. Patient reports she has been nausea and vomiting for the past 3 days. She reports this happening 2-3 times per day. No blood or emesis. She has abdominal pain that began after the vomiting. At 6 out of 10 severity. Said diffuse sharp pain. She reports that her colostomy is draining normally. She is oliguric and this is unchanged. She denies any fever, chills, chest pain, or shortness of breath. She has had a nonproductive cough for the past 2 days. Physical Examination: Vitals: Stable. Afebrile. General: Well-nourished and well-developed. Head: Normocephalic atraumatic. Neck: Supple, no lymphadenopathy. No JVD. Nontender. Cardiovascular: Regular rate and rhythm. No murmurs. Respiratory: No respiratory distress. Clear to auscultation bilaterally. Abdominal: Soft, mild diffuse tenderness to palpation, nondistended, normal bowel sounds. No guarding, rebound, or peritoneal signs. Back: Nontender. Extremities: Nontender, no edema. Skin: Normal color, no rash. Neurologic: Alert and oriented ?3. Cranial nerves II through XII are intact. Normal strength and sensation. Psych: Normal affect. Test Results: CBC is marked for an H&H 11.1 35.9, 7 neutrophils 74, lymphocytes 13, eosinophils of 7. Chem-7 is marked for glucose 112, BUN 42, creatinine 6.53. Of note her potassium is 5.0. LFTs marked for now a 3.1 globulin 4.3. AST is 12. Lipase is normal. Chest x-ray shows no infiltrate. Emergency Department Course and Treatment: Patient was treated with Zofran and morphine IV. She is resting comfortably. Treatment Plan: Patient will be discharged with Zofran. Instructed to follow- up her primary care physician 1-2 days if not improving. Return to the emergency department for any worsening symptoms. Disposition: To home in improved and stable condition. Impression: 1. Vomiting. 2. Abdominal pain, uncertain cause. 3. Cephalgia. This note was generated with [employer] dictation software. It may contain incorrect words, spelling, and punctuation that were not noted in review of the chart prior to signing ED Disposition - Plan for ED Patient: Chief Complaint: Nausea/Vomiting Instructions: ED Cephalgia Unspecified, ED Nausea Vomiting Prescriptions: Ondansetron [Zofran Odt] 4 mg PO Q8H PRN PRN #10 tablet PRN Reason: Nausea Referrals: Christopher Foy MD [Primary Care Provider] - 1-2 Days if not improving
[2018-03-25] MEDS: Ondansetron 4 MG/2 ML Vial IV (15:50)
[2018-03-25] MEDS: Morphine 4 MG/ML Syringe IV (15:50)
[2018-03-25 15:52] LABS: Absolute Lymphocyte Count 0.86 X10^3/ul (0.83-4.51); Absolute Neutrophil Count 4.9 X10^3/uL (2.0-7.7); Basophil# 0.02 X10^3/uL; Basophil% 0.3 % (0-1); Eosinophil# 0.47 X10^3/uL; Eosinophils% 7.1 % (0-5); Hematocrit 35.9 % (37-47); Hemoglobin 11.1 g/dl (12.0-15.0); Lymphocyte # 0.86 X10^3/ul (4.0); Mean Corp Hgb Conc 30.9 g/gl (32-36); Mean Corpuscular Hgb 30.9 pg (27.0-32.0); Monocyte# 0.39 X10^3/uL; Monocyte% 5.9 % (0-10); Neutrophil # 4.88 X10^3/uL (2.7-7.7); Neutrophil % 73.7 % (47-70); POSITIVE COUNT NO; POSITIVE DIFFERENTIAL NO; POSITIVE MORPHOLOGY NO; Platelet Count 137 K/mm3 (150-450); RBC Distribution Width CV 16.6 % (11.6-14.6); RBC Distribution Width SD 60.4 fl (35.1-43.9); Red Blood Count 3.59 M/mm3 (4.2-5.4); White Blood Count 6.6 K/mm3 (4.4-11.0)
[2018-03-25 16:02] LABS: BUN 42 mg/dL (7-18); Creatinine, Serum 6.53 mg/dL (0.55-1.02); Estimated Creatinine Clearance 10.29 ml/min; Glucose 112 mg/dL (74-106)
[2018-03-25 16:03] LABS: AST(SGOT) 12 U/L (15-37); Alanine Aminotransfer ALT/SGPT 29 U/L (13-56); Albumin, Serum 3.1 g/dL (3.2-5.0); Alkaline Phosphatase 85 U/L (45-117); Anion Gap 10 (5-15); BUN/Creat Ratio 6.4 RATIO (10-20); Bilirubin, Direct 0.14 mg/dL (0.00-0.30); Calcium,Total 8.8 mg/dL (8.5-10.1); Chloride 104 mmol/L (98-107); EST Glomerular Filtration Rate 7 mL/min (>60); Est Glom Filt Rate - Afr Amer 9 mL/min (>60); Globulin 4.3 g/dL (2.2-4.2); Lipase 177 U/L (73-393); Protein, Total 7.4 g/dL (6.4-8.2); Sodium Level 142 mmol/L (136-145)
[2018-03-25 16:28] VITALS: BP 160/80; PULSE 79; RESP 18; O2SAT 97
== END 2018-03-25 16:29 | disposition home or self-care (01) ==
PROVIDERS: Emergency Provider Emergency Medicine; Family Provider Family Medicine; PCP Family Medicine
DX: R11.2 Nausea with vomiting, unspecified (principal); R10.9 Unspecified abdominal pain; R51 Headache; R05 Cough; E10.22 Type 1 diabetes mellitus with diabetic chronic kidney disease; I12.0 Hypertensive chronic kidney disease with stage 5 chronic kidney disease or end stage renal disease; N18.6 End stage renal disease; G47.33 Obstructive sleep apnea (adult) (pediatric); F41.9 Anxiety disorder, unspecified; E10.43 Type 1 diabetes mellitus with diabetic autonomic (poly)neuropathy; K31.84 Gastroparesis; Z93.3 Colostomy status; Z99.2 Dependence on renal dialysis; Z90.710 Acquired absence of both cervix and uterus; Z95.5 Presence of coronary angioplasty implant and graft; Z79.82 Long term (current) use of aspirin; Z79.02 Long term (current) use of antithrombotics/antiplatelets; Z79.4 Long term (current) use of insulin; Z79.899 Other long term (current) drug therapy; F17.210 Nicotine dependence, cigarettes, uncomplicated
CPT/HCPCS: 71046; 80048; 80076; 83690; 85025; 96374; 96375; 99284; A4216; J2405

== ENCOUNTER 2018-04-08 11:09 | Emergency (ER) | payer MEDICARE, MEDICAID, SELFPAY ==
[2018-04-08 11:12] VITALS: BP 162/85; PULSE 85; RESP 16; TEMP 36.5; O2SAT 98; BMI 30.7
[2018-04-08] MEDS: Ondansetron 4 MG/2 ML Vial IV (12:06)
[2018-04-08 12:13] LABS: Absolute Lymphocyte Count 1.23 X10^3/ul (0.83-4.51); Absolute Neutrophil Count 4.1 X10^3/uL (2.0-7.7); Basophil# 0.02 X10^3/uL; Basophil% 0.3 % (0-1); Eosinophil# 0.33 X10^3/uL; Eosinophils% 5.6 % (0-5); Hematocrit 34.3 % (37-47); Hemoglobin 10.9 g/dl (12.0-15.0); Lymphocyte # 1.23 X10^3/ul (4.0); Lymphocyte % 20.7 % (19-41); Mean Corp Hgb Conc 31.8 g/gl (32-36); Mean Corpuscular Hgb 30.5 pg (27.0-32.0); Mean Corpuscular Volume 96.1 fL (81-99); Mean Platelet Vol. 9.6 fl (6.2-12.0); Monocyte# 0.24 X10^3/uL; Neutrophil # 4.12 X10^3/uL (2.7-7.7); Neutrophil % 69.4 % (47-70); POSITIVE COUNT NO; POSITIVE DIFFERENTIAL NO; POSITIVE MORPHOLOGY NO; Platelet Count 129 K/mm3 (150-450); RBC Distribution Width CV 15.2 % (11.6-14.6); RBC Distribution Width SD 53.5 fl (35.1-43.9); Red Blood Count 3.57 M/mm3 (4.2-5.4); White Blood Count 5.9 K/mm3 (4.4-11.0)
[2018-04-08 12:31] LABS: AST(SGOT) 21 U/L (15-37); Alanine Aminotransfer ALT/SGPT 33 U/L (13-56); Albumin, Serum 2.9 g/dL (3.2-5.0); Alkaline Phosphatase 92 U/L (45-117); Anion Gap 9 (5-15); BUN 40 mg/dL (7-18); BUN/Creat Ratio 6.5 RATIO (10-20); Bilirubin, Direct 0.15 mg/dL (0.00-0.30); Calcium,Total 8.1 mg/dL (8.5-10.1); Chloride 106 mmol/L (98-107); Creatinine, Serum 6.18 mg/dL (0.55-1.02); EST Glomerular Filtration Rate 8 mL/min (>60); Est Glom Filt Rate - Afr Amer 10 mL/min (>60); Estimated Creatinine Clearance 10.87 ml/min; Globulin 4.8 g/dL (2.2-4.2); Glucose 115 mg/dL (74-106); Lipase 145 U/L (73-393); Potassium 5.2 mmol/L (3.5-5.1); Protein, Total 7.7 g/dL (6.4-8.2); Sodium Level 142 mmol/L (136-145)
--- NOTE | 2018-04-08 13:33 | ED.VISSUMM ---
- ER Visit Summary Date of Service: 04/08/18 Chief Complaint: Abdominal pain with nausea, vomiting diarrhea History of Present Illness: The patient is a 42 F who has multiple medical problems presents with abdominal pain with nausea, vomiting diarrhea. She states she intermittently has blood in her colostomy bag. She is undergone workup with no determine etiology. She does not report diarrhea recently. She has soft to mushy stool that is green in color. She does report chills but denies fever. She denies weight loss or night sweats. She denies ocular, visual auditory symptoms. She denies rhinorrhea, congestion or sore throat. She denies chest pain, palpitations, orthopnea or PND. She denies dyspnea, cough or dyspnea on exertion. She denies myalgias arthralgias. She does report chronic midline low back pain. She denies bowel or bladder dysfunction. She denies radicular pain. She denies foot drop. Physical Examination: Patient appears uncomfortable. HEENT exam is remarkable dry mucosa. Heart is regular without murmur, gallop or rub. S1 and S2 are normal. Lungs are clear to auscultation with good movement of air bilaterally. Abdomen is soft with tenderness more so the right side and right upper quadrant. Negative clinical Escalante sign. There appears to be blood in the colostomy bag. Stool is semi-formed and green. Patient has multiple bruises. She states she is noted the bruises since she was prescribed Plavix. She was prescribed Plavix 1 month ago for coronary disease necessitating angioplasty and stenting. Test Results: CBC is remarkable for chronic unspecified anemia and thrombocytopenia. Electrolyte panel is remarkable for elevated potassium 5.2; however, the specimen was moderately hemolyzed. BUN and creatinine are 40 and 6.18. Albumin is low at 2.9. Emergency Department Course and Treatment: Patient was medicated with Zofran. Blood work was obtained to assess for anemia since blood is noted in the colostomy bag and to assess the pain in the right upper quadrant hepatic and lipase were ordered. Electrolytes were assessed to evaluate BUN to creatinine ratio that would suggest a significant GI bleed. Treatment Plan: Patient was reassessed at 1316. She was reassessed at 1338 after p.o. challenge and has passed p.o. challenge. Disposition: Discharged to home with prescription for Zofran Impression: Abdominal pain with nausea, vomiting diarrhea Mild dehydration Anemia unspecified Thrombocytopenia End-stage renal disease on hemodialysis This note was generated with [employer] dictation software. It may contain incorrect words, spelling, and punctuation that were not noted in review of the chart prior to signing ED Disposition - Plan for ED Patient: Disposition: Home or Assisted Living Chief Complaint: Nausea/Vomiting/Diarrhea Instructions: ED Vomiting Diarrhea Nonspecific Ad Prescriptions: Ondansetron [Zofran Odt] 4 mg PO Q8H PRN PRN #10 tab PRN Reason: Nausea Referrals: Christopher Foy MD [Primary Care Provider] - 3-5 Days if not improving
[2018-04-08 13:46] VITALS: BP 152/89; PULSE 90; RESP 14; O2SAT 98
== END 2018-04-08 13:48 | disposition home or self-care (01) ==
PROVIDERS: Emergency Provider Emergency Medicine; Family Provider Family Medicine; PCP Family Medicine
DX: R10.9 Unspecified abdominal pain (principal); R11.2 Nausea with vomiting, unspecified; R19.7 Diarrhea, unspecified; E86.0 Dehydration; D64.9 Anemia, unspecified; D69.6 Thrombocytopenia, unspecified; E10.22 Type 1 diabetes mellitus with diabetic chronic kidney disease; I12.0 Hypertensive chronic kidney disease with stage 5 chronic kidney disease or end stage renal disease; N18.6 End stage renal disease; Z99.2 Dependence on renal dialysis; Z93.3 Colostomy status; E66.9 Obesity, unspecified; I25.10 Atherosclerotic heart disease of native coronary artery without angina pectoris; I25.2 Old myocardial infarction; E10.43 Type 1 diabetes mellitus with diabetic autonomic (poly)neuropathy; K31.84 Gastroparesis; Z79.82 Long term (current) use of aspirin; Z79.02 Long term (current) use of antithrombotics/antiplatelets; Z79.4 Long term (current) use of insulin; Z79.899 Other long term (current) drug therapy
CPT/HCPCS: 80048; 80076; 83690; 85025; 96374; 99285; A4216; J2405

== ENCOUNTER 2018-04-17 03:35 | Inpatient (IN) | payer MEDICARE, MEDICAID, SELFPAY ==
[2018-04-17] VITALS (8 sets, daily range): BP systolic 149–163; BP diastolic 74–81; PULSE 74–85; RESP 16–18; TEMP 36.4–36.7; O2SAT 96–99
--- NOTE | 2018-04-17 03:45 | EKG12_ITS ---
Test Reason : ADM EKG Blood Pressure : / mmHG Vent. Rate : 077 BPM Atrial Rate : 077 BPM P-R Int : 144 ms QRS Dur : 094 ms QT Int : 426 ms P-R-T Axes : 050 061 136 degrees QTc Int : 482 ms Normal sinus rhythm Nonspecific T wave abnormality Prolonged QT Abnormal ECG When compared with ECG of 17-MAR-2018 14:40, T wave inversion no longer evident in Inferior leads Confirmed by CHEPE BEASLEY, KAITLYNN ([id number]), makeup editor SHANIA SOLITARIO ([id number]) on 04/20/2018 2:33:20 PM Referred By: MARY Confirmed By:KAITLYNN MO MD
[2018-04-17] MEDS: Morphine 2 MG/ML Syringe IV ×2 (05:17→09:54)
[2018-04-17] MEDS: Aspirin E.C. 81 MG Tablet PO (05:17)
[2018-04-17 06:12] LABS: International Normalized Ratio 1.2; Partial Thromboplast Time 29.6 Seconds (24.1-36.2); Prothrombin Time (Protime)PT. 14.7 SECONDS (11.7-14.9)
--- NOTE | 2018-04-17 06:17 | HP.PCM_ITS ---
Problem List (1) Nausea & vomiting Status: Acute (2) Stented coronary artery Status: Chronic Comment: FFR of LAD 0.82; VIKY of mid LAD with 2.5 X 24 mm Promus Synergy, OM <50% stenosis per Dr. Magdaleno @ [facility] (3) Atherosclerotic heart disease of picayune coronary artery without angina pectoris Status: Chronic Qualifiers: Comment: S/P PTCA/VIKY to mid LAD in February 2018 OM #1 noted to be 50%; (4) Chest pain Status: Acute Qualifiers: Chest pain type: unspecified Qualified Code(s): R07.9 - Chest pain, unspecified (5) ESRD (end stage renal disease) on dialysis Status: Chronic (6) Decubitus ulcer, stage III Status: Chronic (7) Anemia, chronic disease Status: Chronic (8) GABRIEL (obstructive sleep apnea) Status: Chronic (9) Depression Status: Chronic Qualifiers: (10) Anxiety Status: Chronic (11) HTN (hypertension) Status: Chronic Qualifiers: (12) Diabetes mellitus type 1 Status: Chronic Qualifiers: History of Present Illness Date of Admission: 04/17/18 Chief Complaint: chest pain The patient is a 42 year old female patient with a significant past medical history of coronary artery disease, diabetes 1, and ESRD on dialysis present to our hospital by transfer from [facility] for chest pain. She states she went to lay down this evening but she felt a heaviness in her chest that got worse when she went to bed at approximately 11:00pm last evening. Initial EKG and troponin were unremarkable yet her pain resolved with nitroglycerin. She was nauseated and vomited with this pain. She is resting comfortably in no acute distress. Today is her normal day for dialysis which she says was disrupted last time due to her discomfort from a decubitus ulcer which Dr Munroe has been looking after. Past Medical History Past Medical History (Chronic Problems): Chronic Problems (Last Updated 02/27/18 @ 10:29 by Pricila Olson) Stented coronary artery (Chronic 02/26/18) FFR of LAD 0.82; VIKY of mid LAD with 2.5 X 24 mm Promus Synergy, OM <50% stenosis per Dr. Magdaleno @ [facility] Atherosclerotic heart disease of picayune coronary artery without angina pectoris (Chronic) S/P PTCA/VIKY to mid LAD in February 2018 OM #1 noted to be 50%; ESRD (end stage renal disease) on dialysis (Chronic) Decubitus ulcer, stage III (Chronic) Anemia, chronic disease (Chronic) Pilonidal cyst with abscess (Chronic) GABRIEL (obstructive sleep apnea) (Chronic) Depression (Chronic) Anxiety (Chronic) HTN (hypertension) (Chronic) Diabetes mellitus type 1 (Chronic) Hyperlipidemia (Chronic) Obesity (BMI 30.0-34.9) (Chronic) Gastroparesis (Chronic) Medical History: Medical History (Last Updated 02/27/18 @ 10:29 by Pricila Olson) Atherosclerotic heart disease of picayune coronary artery without angina pectoris (Chronic) I25.10 S/P PTCA/VIKY to mid LAD in February 2018 OM #1 noted to be 50%; ESRD (end stage renal disease) on dialysis (Chronic) N18.6, Z99.2 Decubitus ulcer, stage III (Chronic) L89.93 Anemia, chronic disease (Chronic) D63.8 Pilonidal cyst with abscess (Chronic) L05.01 GABRIEL (obstructive sleep apnea) (Chronic) G47.33 HTN (hypertension) (Chronic) I10 Nonischemic cardiomyopathy (Resolved) I42.8 Diabetes mellitus type 1 (Chronic) Hyperlipidemia (Chronic) E78.5 Obesity (BMI 30.0-34.9) (Chronic) E66.9 Gastroparesis (Chronic) K31.84 Allergies latex Allergy (Verified 04/08/18 11:11) Rash levofloxacin [From Levaquin] Adverse Reaction (Verified 04/08/18 11:11) PT CAN'T REMEMBER PT CAN'T REMEMBER metoclopramide HCl [From Reglan] Adverse Reaction (Verified 04/08/18 11:11) Nausea NSAIDS (Non-Steroidal Anti-Inflamma Adverse Reaction (Verified 04/08/18 11:11) kidney function oxycodone HCl [From Percocet] Adverse Reaction (Verified 04/08/18 11:11) HALLUCINATIONS Home Medications: Ambulatory Orders Medication Instructions Recorded Aspirin [Aspirin, Baby] 81 mg PO DAILY@0800 01/26/16 Calcium Acetate [Phoslo Gel Cap] 1,334 mg PO TIDCM 01/26/16 Ergocalciferol [Vitamin D] 50,000 unit PO FR 01/26/16 Insulin Aspart [Novolog Flexpen] 10 units SC TIDCM 01/26/16 Insulin Glargine,Hum.rec.anlog 4 unit SQ QHS 01/09/17 [Lantus] proMETHazine tablet [Phenergan 25 mg PO Q6H PRN PRN #10 tab 03/06/17 tablet] Lisinopril 40 mg PO DAILY 03/29/17 Sodium Bicarbonate 650 mg PO 4X/DAY 03/29/17 Fluoxetine HCl 40 mg PO DAILY 09/02/17 ALPRAZolam [Xanax] 0.5 mg PO TUTHSA 11/21/17 Omeprazole Magnesium [Prilosec Otc] 20 mg PO DAILY 02/08/18 Clopidogrel Bisulfate [Plavix] 75 mg PO DAILY #90 tab 02/27/18 Isosorbide Mononitrate [Isosorbide 60 mg PO DAILY 02/28/18 Mononitrate ER] Ondansetron [Zofran Odt] 4 mg PO Q8H PRN PRN #10 tab 03/12/18 carvedilol 25 mg tablet 25 mg PO BID 03/14/18 Atorvastatin Calcium 20 mg PO QHS 03/17/18 Pantoprazole Sodium [Protonix] 20 mg PO DAILY 03/17/18 Ondansetron [Zofran Odt] 4 mg PO Q8H PRN PRN #10 tab 04/08/18 Surgical History: Surgical History (Last Updated 02/27/18 @ 10:29 by Pricila Olson) Stented coronary artery (Chronic) Onset Date: 02/26/18 Z95.5 FFR of LAD 0.82; VIKY of mid LAD with 2.5 X 24 mm Promus Synergy, OM <50% stenosis per Dr. Magdaleno @ [facility] S/P repair of PDA (patent ductus arteriosus) (Resolved) Z98.890, Z87.74 At young age Surgical History: appendectomy, hysterectomy - and BSO, - - c-sections, L breast I+D for abscess, fistula placement LUE, L ankle surgery, appendectomy, PDA repair. Excision pilonidal cyst ulcer about 4 years ago. Colostomy placed due to rectal abscess/wound, patent ductus repair Smoking Status: Current every day smoker - *Family History Maternal History Items: Cancer, COPD, Diabetes, Hypertension, Renal Disease, Stroke Paternal History Items: Diabetes Sibling History Items: Cancer, Diabetes Review of Systems Constitutional: Denies: Chills, Fever, Weight Change HEENT: Denies: Head Aches, Sinus Congestion, Sinus Drainage Cardiovascular: Reports: Chest Pain, Heaviness. Denies: Palpitations Respiratory: Denies: Cough, Shortness of breath at rest, Sputum production Gastrointestinal: Reports: Nausea, Vomiting. Denies: Abdominal Pain Genitourinary: Denies: Dysuria Musculoskeletal: Denies: Joint Pain, Joint Tenderness Skin: Denies: Rash, Wounds Neurological: Denies: Numbness, Tingling, Focal weakness Psychiatric: Denies: Anxiety, Depression, Homicidal Ideations, Suicidal Ideations Hematologic/ Lymphatic: Denies: Easy Bruising, Easy Bleeding VTE Information - Inpt Only VTE Present on Admission: No VTE Mechan Device Prophylaxis: SCD's VTE Pharm Prophylaxis ordered?: No Reason prophylaxis not ordered:: Medical Contraindication - Physical Exam General: Alert, Oriented x3, Cooperative HEENT: Atraumatic, Normocephalic Neck: Supple, Negative Carotid Bruits Lungs: Clear to auscultation, Normal air movement Cardiovascular: Regular rate, Regular Rhythm, Normal S1, Normal S2, No murmurs Abdomen: Bowel Sounds Present, Soft, Non Tender Extremities: No edema, Capillary Refill Less than 3 Seconds Skin: No rashes, No breakdown Musculoskeletal: No Tenderness to Palpation of Joints or Extremities Psych/Mental Status: Normal Affect, Appropriate Vital Signs Pulse 74 04/17/18 04:24 Finger Stick Blood Glucose 118 Laboratory Tests Past 24 Hrs 04/17/18 04/17/18 04/17/18 05:05 05:05 05:05 WBC Pending RBC Pending Hgb Pending Hct Pending MCV Pending MCH Pending MCHC Pending RDW Pending RDW Differential Pending Plt Count Pending Neut % (Auto) Pending Absolute Neuts (auto) Pending Total Counted Pending PT Pending INR Pending APTT Pending Sodium Pending Potassium Pending Chloride Pending Carbon Dioxide Pending Anion Gap Pending BUN Pending Creatinine Pending Est GFR (MDRD) Af Amer Pending Est GFR (MDRD) Non-Af Pending BUN/Creatinine Ratio Pending Glucose Pending Calcium Pending Troponin I Pending Assessment/Plan All Active Problems (Last Updated 02/27/18 @ 10:29 by Pricila Olson) Nausea & vomiting (Acute) Migraine (Acute) Metabolic encephalopathy (Acute) Abnormal electrocardiogram [ECG] [EKG] (Acute) Chest pain (Acute) Tooth abscess (Resolved) Intractable nausea and vomiting (Resolved) Pneumonia (Resolved) Pulmonary edema (Resolved) Hyperkalemia (Resolved) Atypical chest pain (Resolved) Acute hypoxic respiratory failure (Resolved) Pulmonary edema (Resolved) Clostridium difficile enterocolitis (Resolved) Necrotizing myositis (Resolved) Nonischemic cardiomyopathy (Resolved) S/P repair of PDA (patent ductus arteriosus) (Resolved) Dysmenorrhea (Resolved) Hx of necrotizing fascIItis (Resolved) Iron deficiency anemia due to chronic blood loss (Resolved) Systolic congestive heart failure (Resolved) Chronic Problems (Last Updated 02/27/18 @ 10:29 by Pricila Olson) Stented coronary artery (Chronic 02/26/18) FFR of LAD 0.82; VIKY of mid LAD with 2.5 X 24 mm Promus Synergy, OM <50% stenosis per Dr. Magdaleno @ [facility] Atherosclerotic heart disease of picayune coronary artery without angina pectoris (Chronic) S/P PTCA/VIKY to mid LAD in February 2018 OM #1 noted to be 50%; ESRD (end stage renal disease) on dialysis (Chronic) Decubitus ulcer, stage III (Chronic) Anemia, chronic disease (Chronic) Pilonidal cyst with abscess (Chronic) GABRIEL (obstructive sleep apnea) (Chronic) Depression (Chronic) Anxiety (Chronic) HTN (hypertension) (Chronic) Diabetes mellitus type 1 (Chronic) Hyperlipidemia (Chronic) Obesity (BMI 30.0-34.9) (Chronic) Gastroparesis (Chronic) Plan - admit to progressive care unit - cycle cardiac enzymes, cbc, bmp and coag panel - morphine, oxygen, nitroglycerin and aspirin per routine - plan dobutamine stress echo test in am (per conversation with Dr Magdaleno) - currently NPO pending stress test, if wnl then normal diet and resume medications for now will have q 6hr blood sugar checks with SSI coverage - SCDs for DVT prophylaxis Code Visit Inpatient E&M: 12576 Init Hosp L3
[2018-04-17 06:27] LABS: Absolute Lymphocyte Count 1.38 X10^3/ul (0.83-4.51); Absolute Neutrophil Count 6.2 X10^3/uL (2.0-7.7); BUN 63 mg/dL (7-18); BUN/Creat Ratio 7.6 RATIO (10-20); Basophil# 0.03 X10^3/uL; Basophil% 0.4 % (0-1); Calcium,Total 8.5 mg/dL (8.5-10.1); Chloride 108 mmol/L (98-107); Creatinine, Serum 8.24 mg/dL (0.55-1.02); EST Glomerular Filtration Rate 6 mL/min (>60); Eosinophil# 0.32 X10^3/uL; Eosinophils% 3.9 % (0-5); Est Glom Filt Rate - Afr Amer 7 mL/min (>60); Glucose 117 mg/dL (74-106); Hematocrit 30.9 % (37-47); Hemoglobin 9.9 g/dl (12.0-15.0); Lymphocyte # 1.38 X10^3/ul (4.0); Lymphocyte % 16.7 % (19-41); Mean Corpuscular Hgb 31.3 pg (27.0-32.0); Mean Corpuscular Volume 97.8 fL (81-99); Mean Platelet Vol. 9.1 fl (6.2-12.0); Monocyte# 0.32 X10^3/uL; Monocyte% 3.9 % (0-10); Neutrophil # 6.17 X10^3/uL (2.7-7.7); Neutrophil % 74.7 % (47-70); Platelet Count 134 K/mm3 (150-450); Potassium 5.6 mmol/L (3.5-5.1); RBC Distribution Width CV 15.3 % (11.6-14.6); RBC Distribution Width SD 52.4 fl (35.1-43.9); Red Blood Count 3.16 M/mm3 (4.2-5.4); Sodium Level 141 mmol/L (136-145); White Blood Count 8.3 K/mm3 (4.4-11.0)
[2018-04-17 06:28] LABS: Anion Gap 13 (5-15)
--- NOTE | 2018-04-17 06:33 | STEWCON_ITS ---
Reason For Study: Chest Pain Stress Results Protocol: Dobutamine Stress Echo Maximum Predicted HR: 176 bpm Target HR: 150 bpm% Maximum Pre dicted HR: 78 % DurationHeart Rate Stage (mm:ss) (bpm) BPComm ent Baseline 78 147/82 No Chest Pain; Diluted Definity 3 ML Given DSE 10 MCG 3:00 80 135/75 No Chest Pain DSE 20 MCG 3:00 94 185/81 No Chest Pain DSE 30 MCG 3:00 10 5 194/90 5/10 Chest Pain; Atropine 0.5 MG IVP DSE 40 MCG 3:20 13 7 206/1117/10 Chest and Throat Pain; Atropine 0.5 MG IVP Recovery 94 154/73 No Chest Pain Stress Duration: 12:20 mm:ss Maximum Stress HR: 137 bpmME TS: 1 Baseline Echocardiogram Findings The estimated ejection fraction is 45 %. Stress Echo Wall motion Data Resting WMIntermediate WMStress WM Resting Wall Motion Wall Motion Stress Infero-Basal: Mildly hypokinetic. Infero-Basal: Mildly hypokinetic. EKG Data Normal intervals are noted. The patient was titrated from 10 mcg to a maximum of 40 mcg of dobutamine during the stress. The maximum heart rate attained was 141 beats per minute. This was 80% of maximum predicted heart rate. At peak infusion, upsloping ST changes only were noted, which did not meet the criteria for ischemia. Interpretation Summary The estimated ejection fraction is 45 %. Normal, adequate, dobutamine echocardiogram. Negative for ischemia by EKG and echocardiographic criteria. Hypertensive blood pressure response to dobutamine. Patient arrived with 3 out of 10 chest pain, and increased to 7 out of 10 chest pain with infusion. No associated wall motion abnormalities at peak infusion. Patient did have baseline inferior basal hypokinesis as previously noted on echocardiogram. Decreased sensitivity due to poor echo windows requiring Definity agent. Rare PVCs noted. Final LVEF of 45 percent. No complications. Ordering Physician: Ryan Castillo Referring Physician: Mark Magdaleno Performed By: Polly Vasquez, TEO, RVT
[2018-04-17 06:40] LABS: POSITIVE COUNT NO; POSITIVE DIFFERENTIAL NO; POSITIVE MORPHOLOGY NO
[2018-04-17] MEDS: Ondansetron 4 MG/2 ML Vial IV (07:39)
[2018-04-17] MEDS: 0.9% NaCl Peripheral Flush Adult/Peds IV (07:40)
[2018-04-17] MEDS: Lidocaine/Prilocaine HCl 5 GM Tube 1 GM TOPICAL (11:13)
[2018-04-17 11:16] LABS: Bedside Glucose 96 mg/dL (70-110)
--- NOTE | 2018-04-17 12:26 | CON.PCM_ITS ---
Problem List (1) ESRD (end stage renal disease) on dialysis Status: Chronic Consultation - Renal 04/17/18 PCP/ Referring MD: Requesting physician: [] Primary care physician: Christopher Foy Reason for Consultation:: ESRD - History of Present Illness History of Present Illness: The patient is a 42 year old F well known to us. ESRD secondary to diabetes on HD TTS schedule. Access if AVF. last HD monday. recent history - perianal abscess requiring diverting colostomy. ID s/p cardiac stenting admitted with chest pain. stress test done this am also complains of N/V/D for last few days. several sick contacts at home. - Allergies Allergies: Allergies latex Allergy (Verified 04/08/18 11:11) Rash levofloxacin [From Levaquin] Adverse Reaction (Verified 04/08/18 11:11) PT CAN'T REMEMBER PT CAN'T REMEMBER metoclopramide HCl [From Reglan] Adverse Reaction (Verified 04/08/18 11:11) Nausea NSAIDS (Non-Steroidal Anti-Inflamma Adverse Reaction (Verified 04/08/18 11:11) kidney function oxycodone HCl [From Percocet] Adverse Reaction (Verified 04/08/18 11:11) HALLUCINATIONS - Current Medications Current Medications: Current Medications Aspirin (Ecotrin) 81 mg PO DAILY@0800 [facility] Last Admin: 04/17/18 05:17 Dose: 81 mg Insulin Human Lispro (Humalog Kwikpen (Bkc)) 0 unit SC Q6 [place]; Protocol Last Admin: 04/17/18 12:12 Dose: Not Given Magnesium Hydroxide (Milk Of Magnesia) 30 ml PO DAILY PRN PRN Reason: Constipation Morphine Sulfate () 2 mg IV Q2H PRN PRN PRN Reason: chest pain Last Admin: 04/17/18 09:54 Dose: 2 mg Nitroglycerin (Nitrostat) 0.4 mg SUBLINGUAL Q5M PRN PRN Reason: CARDIAC/CHEST PAIN Ondansetron HCl (Zofran) 4 mg IV Q8H PRN PRN PRN Reason: NAUSEA Last Admin: 04/17/18 07:39 Dose: 4 mg Sodium Chloride () 5 - 30 ml IV UD PRN PRN Reason: SALINE FLUSH Last Admin: 04/17/18 07:40 Dose: 10 ml - Past Medical History Past Medical History (Chronic Problems): Chronic Problems (Last Updated 02/27/18 @ 10:29 by Pricila Olson) Stented coronary artery (Chronic 02/26/18) FFR of LAD 0.82; VIKY of mid LAD with 2.5 X 24 mm Promus Synergy, OM <50% stenosis per Dr. Magdaleno @ [facility] Atherosclerotic heart disease of [place] coronary artery without angina pectoris (Chronic) S/P PTCA/VIKY to mid LAD in February 2018 OM #1 noted to be 50%; ESRD (end stage renal disease) on dialysis (Chronic) Decubitus ulcer, stage III (Chronic) Anemia, chronic disease (Chronic) Pilonidal cyst with abscess (Chronic) GABRIEL (obstructive sleep apnea) (Chronic) Depression (Chronic) Anxiety (Chronic) HTN (hypertension) (Chronic) Diabetes mellitus type 1 (Chronic) Hyperlipidemia (Chronic) Obesity (BMI 30.0-34.9) (Chronic) Gastroparesis (Chronic) - Past Surgical History Surgical History: appendectomy, hysterectomy - and BSO, - - c-sections, L breast I+D for abscess, fistula placement LUE, L ankle surgery, appendectomy, PDA repair. Excision pilonidal cyst ulcer about 4 years ago. Colostomy placed due to rectal abscess/wound, patent ductus repair - Social History Smoking Status: Current every day smoker - Family History Maternal History Items: Cancer, COPD, Diabetes, Hypertension, Renal Disease, Stroke Paternal History Items: Diabetes Sibling History Items: Cancer, Diabetes Review of Systems Constitutional: Denies: Chills, Fever, Weight Change HEENT: Denies: Head Aches, Sinus Congestion, Sinus Drainage Cardiovascular: Denies: Chest Pain, Palpitations Respiratory: Denies: Cough, Shortness of breath at rest, Sputum production Gastrointestinal: Reports: Abdominal Pain, Nausea, Vomiting Genitourinary: Denies: Dysuria Musculoskeletal: Denies: Joint Pain, Joint Tenderness Skin: Denies: Rash, Wounds Neurological: Denies: Numbness, Tingling, Focal weakness Psychiatric: Denies: Anxiety, Depression, Homicidal Ideations, Suicidal Ideations Hematologic/ Lymphatic: Denies: Easy Bruising, Easy Bleeding - Physical Exam General: Alert, Oriented x3, Cooperative HEENT: Atraumatic, PERRLA, EOMI, Normocephalic Neck: Supple, No JVD, Negative Carotid Bruits Lungs: Clear to auscultation, Normal air movement Cardiovascular: Regular rate, No murmurs Abdomen: Bowel Sounds Present, Soft, Non Tender Extremities: No edema, Capillary Refill Less than 3 Seconds Skin: No rashes, No breakdown Musculoskeletal: No Tenderness to Palpation of Joints or Extremities Neurological: Cranial nerves II-XII grossly intact Psych/Mental Status: Normal Affect, Appropriate Vital Signs Temp Pulse Resp BP Pulse Ox 97.6 F L 76 16 158/81 H 99 04/17/18 09:45 04/17/18 11:15 04/17/18 09:45 04/17/18 09:45 04/17/18 09:45 Oxygen Delivery Method Room Air Finger Stick Blood Glucose 118 Intake and Output for Last 24 Hours 04/15/18 04/16/18 04/17/18 23:59 23:59 23:59 Intake Total 360 / 360 Balance 360 / 360 Laboratory Tests Past 24 Hrs 04/17/18 04/17/18 04/17/18 05:05 05:05 05:05 WBC 8.3 RBC 3.16 L Hgb 9.9 L Hct 30.9 L MCV 97.8 MCH 31.3 MCHC 32.0 RDW 15.3 H RDW Differential 52.4 H Plt Count 134 L MPV 9.1 Immature Gran % (Auto) 0.400 Neut % (Auto) 74.7 H Lymph % (Auto) 16.7 L Grundy % (Auto) 3.9 Eos % (Auto) 3.9 Baso % (Auto) 0.4 Absolute Neuts (auto) 6.2 Absolute Lymphs (auto) 1.38 Total Counted Not Reportable PT 14.7 INR 1.2 APTT 29.6 Sodium 141 Potassium 5.6 H Chloride 108 H Carbon Dioxide 20.0 L Anion Gap 13 BUN 63 H Creatinine 8.24 H* Est GFR (MDRD) Af Amer 7 L Est GFR (MDRD) Non-Af 6 L BUN/Creatinine Ratio 7.6 L Glucose 117 H Calcium 8.5 Troponin I 0.020 04/17/18 04/17/18 08:00 11:12 WBC RBC Hgb Hct MCV MCH MCHC RDW RDW Differential Plt Count MPV Immature Gran % (Auto) Neut % (Auto) Lymph % (Auto) Grundy % (Auto) Eos % (Auto) Baso % (Auto) Absolute Neuts (auto) Absolute Lymphs (auto) Total Counted PT INR APTT Sodium Potassium Chloride Carbon Dioxide Anion Gap BUN Creatinine Est GFR (MDRD) Af Amer Est GFR (MDRD) Non-Af BUN/Creatinine Ratio Glucose Calcium Troponin I 0.018 Pending POC Glucose 04/17/18 07:38 POC Glucose 96 Assessment/Plan All Active Problems (Last Updated 02/27/18 @ 10:29 by Pricila Olson) Nausea & vomiting (Acute) Migraine (Acute) Metabolic encephalopathy (Acute) Abnormal electrocardiogram [ECG] [EKG] (Acute) Chest pain (Acute) Tooth abscess (Resolved) Intractable nausea and vomiting (Resolved) Pneumonia (Resolved) Pulmonary edema (Resolved) Hyperkalemia (Resolved) Atypical chest pain (Resolved) Acute hypoxic respiratory failure (Resolved) Pulmonary edema (Resolved) Clostridium difficile enterocolitis (Resolved) Necrotizing myositis (Resolved) Nonischemic cardiomyopathy (Resolved) S/P repair of PDA (patent ductus arteriosus) (Resolved) Dysmenorrhea (Resolved) Hx of necrotizing fascIItis (Resolved) Iron deficiency anemia due to chronic blood loss (Resolved) Systolic congestive heart failure (Resolved) ESRD. HD today. discussed with staff. see orders/flowsheets CHest pain. Troponins negative. stress test done this am. pending results. recently had cardiac stenting done. hyperkalemia. HD today
--- NOTE | 2018-04-17 13:32 | CASEMGMT ---
Face to Face with patient for initial transition planning/care coordination assessment. MALLORY SCHUMACHER introduced self and role at [facility], pt voices understanding and consents to assessment at this time. Pt is lying in bed in no distress at this time. Pt is A/Ox4 at this time and answers all questions appropriately at this time. Care providers, pharmacy, and demographics verified. See attached link. Pt asks this MALLORY SCHUMACHER about resources for her colostomy supplies d/t [employer] [facility] and pt provided with info on two medical supply companies at this time. Advised pt to ask for CM if any further questions/concerns/needs arise, voices understanding. CM to follow for any further discharge planning/needs. PLAN: [place] MALLORY SCHUMACHER
[2018-04-17 16:06] LABS: Bedside Glucose 105 mg/dL (70-110)
--- NOTE | 2018-04-17 16:18 | PCM.PN.BLA ---
Progress Note Patient is a 42-year-old lady with significant comorbidities including end-stage renal disease on hemodialysis who presented with chest pain. Please and a monitored bed did rule out [place] with serial cardiac enzymes. Patient subsequently underwent a stress echo which was negative for stress-induced ischemia. Patient has been seen and examined. Her initial assessment including history and physical for diagnostic workup and management orders reviewed. Will follow.
[2018-04-17 16:56] LABS: Bedside Glucose 100 mg/dL (70-110)
--- NOTE | 2018-04-17 17:22 | DCINST_ITS ---
You will use the following diet at home:: Cardiac, Renal (restricted protein/sodium) Your food should be the consistency of: Regular Your liquids should be the consistency of: Regular/Thin Discharge Activity: Return to Normal Activity Allergies/Adverse Reactions: Allergies latex Allergy (Verified 04/08/18 11:11) Rash levofloxacin [From Levaquin] Adverse Reaction (Verified 04/08/18 11:11) PT CAN'T REMEMBER PT CAN'T REMEMBER metoclopramide HCl [From Reglan] Adverse Reaction (Verified 04/08/18 11:11) Nausea NSAIDS (Non-Steroidal Anti-Inflamma Adverse Reaction (Verified 04/08/18 11:11) kidney function oxycodone HCl [From Percocet] Adverse Reaction (Verified 04/08/18 11:11) HALLUCINATIONS Medications to take at Discharge Aspirin [Aspirin, Baby] 81 mg PO DAILY@0800 01/26/16 Calcium Acetate [Phoslo Gel Cap] 1,334 mg PO TIDCM 01/26/16 Ergocalciferol [Vitamin D] 50,000 unit PO FR 01/26/16 Insulin Aspart [Novolog Flexpen] 10 units SC TIDCM 01/26/16 Insulin Glargine,Hum.rec.anlog [Lantus] 4 unit SQ QHS 01/09/17 proMETHazine tablet [Phenergan tablet] 25 mg PO Q6H PRN PRN #10 tab 03/06/17 Lisinopril 40 mg PO DAILY 03/29/17 Sodium Bicarbonate 650 mg PO 4X/DAY 03/29/17 Fluoxetine HCl 40 mg PO DAILY 09/02/17 ALPRAZolam [Xanax] 0.5 mg PO TUTHSA 11/21/17 Omeprazole Magnesium [Prilosec Otc] 20 mg PO DAILY 02/08/18 Clopidogrel Bisulfate [Plavix] 75 mg PO DAILY #90 tab 02/27/18 Isosorbide Mononitrate [Isosorbide Mononitrate ER] 60 mg PO DAILY 02/28/18 Ondansetron [Zofran Odt] 4 mg PO Q8H PRN PRN #10 tab 03/12/18 carvedilol 25 mg tablet 25 mg PO BID 03/14/18 Atorvastatin Calcium 20 mg PO QHS 03/17/18 Pantoprazole Sodium [Protonix] 20 mg PO DAILY 03/17/18 Ondansetron [Zofran Odt] 4 mg PO Q8H PRN PRN #10 tab 04/08/18 Primary Care Physician: Christopher Foy MD [Primary Care Provider] - Please follow up with your Primary Care Physician in: 1-2 weeks Test Results: Test results from this visit will be discussed in further detail at your follow- up appointment, if applicable. Please Follow Up With: Chey Martinez MD When: Resume usual dialysis Please Follow Up With: Mark Magdaleno MD When: 2 weeks Please Follow Up With: Kayode Munroe MD - ' When: As directed
--- NOTE | 2018-04-17 17:55 | PCM.DC.SUM ---
<Gael Vega - Last Filed: 04/17/18 17:55> Discharge Date and Diagnosis Date of Admission: 04/17/18 Date of Discharge: 04/17/18 - Primary Discharge Diagnosis chest pain - musculoskeletal ESRD CAD prior stents DMt1 HLD HTN Obesity Gastroparesis Anx/Dep Decubitus ulcer - Secondary Discharge Diagnosis Chronic Problems (Last Updated 02/27/18 @ 10:29 by Pricila Olson) Stented coronary artery (Chronic 02/26/18) FFR of LAD 0.82; VIKY of mid LAD with 2.5 X 24 mm Promus Synergy, OM <50% stenosis per Dr. Magdaleno @ [facility] Atherosclerotic heart disease of [place] coronary artery without angina pectoris (Chronic) S/P PTCA/VIKY to mid LAD in February 2018 OM #1 noted to be 50%; ESRD (end stage renal disease) on dialysis (Chronic) Decubitus ulcer, stage III (Chronic) Anemia, chronic disease (Chronic) Pilonidal cyst with abscess (Chronic) GABRIEL (obstructive sleep apnea) (Chronic) Depression (Chronic) Anxiety (Chronic) HTN (hypertension) (Chronic) Diabetes mellitus type 1 (Chronic) Hyperlipidemia (Chronic) Obesity (BMI 30.0-34.9) (Chronic) Gastroparesis (Chronic) Hospital Course and Treatment Imaging Results: Stress Echo: Interpretation Summary The estimated ejection fraction is 45 %. Normal, adequate, dobutamine echocardiogram. Negative for ischemia by EKG and echocardiographic criteria. Hypertensive blood pressure response to dobutamine. Patient arrived with 3 out of 10 chest pain, and increased to 7 out of 10 chest pain with infusion. No associated wall motion abnormalities at peak infusion. Patient did have baseline inferior basal hypokinesis as previously noted on echocardiogram. Decreased sensitivity due to poor echo windows requiring Definity agent. Rare PVCs noted. Final LVEF of 45 percent. No complications. Consults: Juan - Nephro Operations: None Procedures: Stress test Summary of Care Provided: Physical exam on day of discharge: General: Resting comfortably NAD Psych: A/Ox3 normal affect HEENT: PEARRLA AT NC Neck: Supple NT CV: RRR no m/t/r/g/h Resp: CTA Abd: [id number] Soft NT no guarding or rigidity, obese Ext: DP2+= no edema Skin: W/D normal turgor Lymph/Heme: No active bleeding or adenopathy Neuro: CN2-12 intact Hospital course: The patient is a 42 year old F with past medical history of CAD with prior stents, patient of Dr. Magdaleno, end-stage renal disease patient of Dr. Martinez, type 1 diabetes, hyperlipidemia, hypertension who presented to the emergency room with chief complaint of chest pain when she laid down to go to bed the night prior to presentation. She came to the emergency room at [facility] and had a negative EKG and troponin. Her pain resolved with nitroglycerin. She was transferred to [facility] for cardiac monitoring and further chest pain workup. She was maintained on telemetry with no issues. Troponin was cycled and remained negative. She underwent a stress echocardiogram which was negative for ischemia, EF of 45%. She underwent dialysis per . She had no further chest pain after transfer to this hospital. It was felt that her chest pain was likely musculoskeletal and she was discharged home in stable condition. I did discuss with her that her blood pressure is running somewhat elevated and will need to be monitored and that she should address this with her PCP, resident services manager, and lead cook at follow-up. I advised her to follow-up with her lead cook in 2 weeks, with her resident services manager as directed, with her PCP, and with Dr. caryn diego who she is seeing at the wound care center as an outpatient for a chronic decubitus ulcer. This patient was seen by Gael Vega PA-C under the supervision of Doctor Hill. [] Discharge Diet: Renal Diet Discharge Activity: Return to Normal Activity Home Medications: Medications to take at Discharge Aspirin [Aspirin, Baby] 81 mg PO DAILY@0800 01/26/16 Calcium Acetate [Phoslo Gel Cap] 1,334 mg PO TIDCM 01/26/16 Ergocalciferol [Vitamin D] 50,000 unit PO FR 01/26/16 Insulin Aspart [Novolog Flexpen] 10 units SC TIDCM 01/26/16 Insulin Glargine,Hum.rec.anlog [Lantus] 4 unit SQ QHS 01/09/17 proMETHazine tablet [Phenergan tablet] 25 mg PO Q6H PRN PRN #10 tab 03/06/17 Lisinopril 40 mg PO DAILY 03/29/17 Sodium Bicarbonate 650 mg PO 4X/DAY 09/06/17 Fluoxetine HCl 40 mg PO DAILY 09/02/17 ALPRAZolam [Xanax] 0.5 mg PO TUTHSA 11/21/17 Omeprazole Magnesium [Prilosec Otc] 20 mg PO DAILY 02/08/18 Clopidogrel Bisulfate [Plavix] 75 mg PO DAILY #90 tab 02/27/18 Isosorbide Mononitrate [Isosorbide Mononitrate ER] 60 mg PO DAILY 02/28/18 Ondansetron [Zofran Odt] 4 mg PO Q8H PRN PRN #10 tab 03/12/18 carvedilol 25 mg tablet 25 mg PO BID 03/14/18 Atorvastatin Calcium 20 mg PO QHS 03/17/18 Pantoprazole Sodium [Protonix] 20 mg PO DAILY 03/17/18 Ondansetron [Zofran Odt] 4 mg PO Q8H PRN PRN #10 tab 04/08/18 Primary Care Physician: Christopher Foy MD [Primary Care Provider] - Please follow up with your Primary Care Physician in: 1-2 weeks Please Follow Up With: Chey Martinez MD When: Resume usual dialysis Please Follow Up With: Mark Magdaleno MD When: 2 weeks Please Follow Up With: Kayode Munroe MD - ' When: As directed Disposition: Home Minutes spent on discharge:: 35 Patient Condition:: Stable Medical Necessity - Tobacco Use Smoking Status: Current every day smoker Meaningful Use Info Meaningful Use Diagnoses (Choose all that apply): None applicable <Anthony Hill - Last Filed: 04/18/18 08:03> Discharge Date and Diagnosis - Secondary Discharge Diagnosis Chronic Problems (Last Updated 02/27/18 @ 10:29 by Pricila Olson) Stented coronary artery (Chronic 02/26/18) FFR of LAD 0.82; VIKY of mid LAD with 2.5 X 24 mm Promus Synergy, OM <50% stenosis per Dr. Magdaleno @ [facility] Atherosclerotic heart disease of [place] coronary artery without angina pectoris (Chronic) S/P PTCA/VIKY to mid LAD in February 2018 OM #1 noted to be 50%; ESRD (end stage renal disease) on dialysis (Chronic) Decubitus ulcer, stage III (Chronic) Anemia, chronic disease (Chronic) Pilonidal cyst with abscess (Chronic) GABRIEL (obstructive sleep apnea) (Chronic) Depression (Chronic) Anxiety (Chronic) HTN (hypertension) (Chronic) Diabetes mellitus type 1 (Chronic) Hyperlipidemia (Chronic) Obesity (BMI 30.0-34.9) (Chronic) Gastroparesis (Chronic) Hospital Course and Treatment Summary of Care Provided: Patient is a 42-year-old lady with significant comorbidities including end-stage renal disease on hemodialysis who presented with chest pain. Placed on a monitored bed did rule out [place] with serial cardiac enzymes. Patient subsequently underwent a stress echo which was negative for stress-induced ischemia. Patient has been seen and examined. Her initial assessment including history and physical for diagnostic workup and management orders reviewed. Discharged home following her negative stress test Code Visit OBSV E&M: 02246 Observ/hosp same date L3
--- NOTE | 2018-04-17 18:01 | DS.PCM_ITS ---
<Gael Vega - Last Filed: 04/17/18 17:55> Discharge Date and Diagnosis Date of Admission: 04/17/18 Date of Discharge: 04/17/18 - Primary Discharge Diagnosis chest pain - musculoskeletal ESRD CAD prior stents DMt1 HLD HTN Obesity Gastroparesis Anx/Dep Decubitus ulcer - Secondary Discharge Diagnosis Chronic Problems (Last Updated 02/27/18 @ 10:29 by Pricila Olson) Stented coronary artery (Chronic 02/26/18) FFR of LAD 0.82; VIKY of mid LAD with 2.5 X 24 mm Promus Synergy, OM <50% stenosis per Dr. Magdaleno @ [facility] Atherosclerotic heart disease of [place] coronary artery without angina pectoris (Chronic) S/P PTCA/VIKY to mid LAD in February 2018 OM #1 noted to be 50%; ESRD (end stage renal disease) on dialysis (Chronic) Decubitus ulcer, stage III (Chronic) Anemia, chronic disease (Chronic) Pilonidal cyst with abscess (Chronic) GABRIEL (obstructive sleep apnea) (Chronic) Depression (Chronic) Anxiety (Chronic) HTN (hypertension) (Chronic) Diabetes mellitus type 1 (Chronic) Hyperlipidemia (Chronic) Obesity (BMI 30.0-34.9) (Chronic) Gastroparesis (Chronic) Hospital Course and Treatment Imaging Results: Stress Echo: Interpretation Summary The estimated ejection fraction is 45 %. Normal, adequate, dobutamine echocardiogram. Negative for ischemia by EKG and echocardiographic criteria. Hypertensive blood pressure response to dobutamine. Patient arrived with 3 out of 10 chest pain, and increased to 7 out of 10 chest pain with infusion. No associated wall motion abnormalities at peak infusion. Patient did have baseline inferior basal hypokinesis as previously noted on echocardiogram. Decreased sensitivity due to poor echo windows requiring Definity agent. Rare PVCs noted. Final LVEF of 45 percent. No complications. Consults: Juan - Nephro Operations: None Procedures: Stress test Summary of Care Provided: Physical exam on day of discharge: General: Resting comfortably NAD Psych: A/Ox3 normal affect HEENT: PEARRLA AT NC Neck: Supple NT CV: RRR no m/t/r/g/h Resp: CTA Abd: [id number] Soft NT no guarding or rigidity, obese Ext: DP2+= no edema Skin: W/D normal turgor Lymph/Heme: No active bleeding or adenopathy Neuro: CN2-12 intact Hospital course: The patient is a 42 year old F with past medical history of CAD with prior stents, patient of Dr. Magdaleno, end-stage renal disease patient of Dr. Martinez, type 1 diabetes, hyperlipidemia, hypertension who presented to the emergency room with chief complaint of chest pain when she laid down to go to bed the night prior to presentation. She came to the emergency room at [facility] and had a negative EKG and troponin. Her pain resolved with nitroglycerin. She was transferred to [facility] for cardiac monitoring and further chest pain workup. She was maintained on telemetry with no issues. Troponin was cycled and remained negative. She underwent a stress echocardiogram which was negative for ischemia, EF of 45%. She underwent dialysis per . She had no further chest pain after transfer to this hospital. It was felt that her chest pain was likely musculoskeletal and she was discharged home in stable condition. I did discuss with her that her blood pressure is running somewhat elevated and will need to be monitored and that she should address this with her PCP, automobile technician, and turner splitter machine operator at follow-up. I advised her to follow-up with her turner splitter machine operator in 2 weeks, with her automobile technician as directed, with her PCP, and with Dr. caryn diego who she is seeing at the wound care center as an outpatient for a chronic decubitus ulcer. This patient was seen by Gael Vega PA-C under the supervision of Doctor Hill. [] Discharge Diet: Renal Diet Discharge Activity: Return to Normal Activity Home Medications: Medications to take at Discharge Aspirin [Aspirin, Baby] 81 mg PO DAILY@0800 01/26/16 Calcium Acetate [Phoslo Gel Cap] 1,334 mg PO TIDCM 01/26/16 Ergocalciferol [Vitamin D] 50,000 unit PO FR 01/26/16 Insulin Aspart [Novolog Flexpen] 10 units SC TIDCM 01/26/16 Insulin Glargine,Hum.rec.anlog [Lantus] 4 unit SQ QHS 01/09/17 proMETHazine tablet [Phenergan tablet] 25 mg PO Q6H PRN PRN #10 tab 03/06/17 Lisinopril 40 mg PO DAILY 03/29/17 Sodium Bicarbonate 650 mg PO 4X/DAY 09/06/17 Fluoxetine HCl 40 mg PO DAILY 09/02/17 ALPRAZolam [Xanax] 0.5 mg PO TUTHSA 11/21/17 Omeprazole Magnesium [Prilosec Otc] 20 mg PO DAILY 02/08/18 Clopidogrel Bisulfate [Plavix] 75 mg PO DAILY #90 tab 02/27/18 Isosorbide Mononitrate [Isosorbide Mononitrate ER] 60 mg PO DAILY 02/28/18 Ondansetron [Zofran Odt] 4 mg PO Q8H PRN PRN #10 tab 03/12/18 carvedilol 25 mg tablet 25 mg PO BID 03/14/18 Atorvastatin Calcium 20 mg PO QHS 03/17/18 Pantoprazole Sodium [Protonix] 20 mg PO DAILY 03/17/18 Ondansetron [Zofran Odt] 4 mg PO Q8H PRN PRN #10 tab 04/08/18 Primary Care Physician: Christopher Foy MD [Primary Care Provider] - Please follow up with your Primary Care Physician in: 1-2 weeks Please Follow Up With: Chey Martinez MD When: Resume usual dialysis Please Follow Up With: Mark Magdaleno MD When: 2 weeks Please Follow Up With: Kayode Munroe MD - ' When: As directed Disposition: Home Minutes spent on discharge:: 35 Patient Condition:: Stable Medical Necessity - Tobacco Use Smoking Status: Current every day smoker Meaningful Use Info Meaningful Use Diagnoses (Choose all that apply): None applicable <Anthony Hill - Last Filed: 04/18/18 08:03> Discharge Date and Diagnosis - Secondary Discharge Diagnosis Chronic Problems (Last Updated 02/27/18 @ 10:29 by Pricila Olson) Stented coronary artery (Chronic 02/26/18) FFR of LAD 0.82; VIKY of mid LAD with 2.5 X 24 mm Promus Synergy, OM <50% stenosis per Dr. Magdaleno @ [facility] Atherosclerotic heart disease of [place] coronary artery without angina pectoris (Chronic) S/P PTCA/VIKY to mid LAD in February 2018 OM #1 noted to be 50%; ESRD (end stage renal disease) on dialysis (Chronic) Decubitus ulcer, stage III (Chronic) Anemia, chronic disease (Chronic) Pilonidal cyst with abscess (Chronic) GABRIEL (obstructive sleep apnea) (Chronic) Depression (Chronic) Anxiety (Chronic) HTN (hypertension) (Chronic) Diabetes mellitus type 1 (Chronic) Hyperlipidemia (Chronic) Obesity (BMI 30.0-34.9) (Chronic) Gastroparesis (Chronic) Hospital Course and Treatment Summary of Care Provided: Patient is a 42-year-old lady with significant comorbidities including end-stage renal disease on hemodialysis who presented with chest pain. Placed on a monitored bed did rule out UT with serial cardiac enzymes. Patient subsequently underwent a stress echo which was negative for stress-induced ischemia. Patient has been seen and examined. Her initial assessment including history and physical for diagnostic workup and management orders reviewed. Discharged home following her negative stress test Code Visit OBSV E&M: 00119 Observ/hosp same date L3
== END 2018-04-17 17:56 | disposition home or self-care (01) | DRG 313 ==
PROVIDERS: Admitting Provider Family Medicine; Family Provider Family Medicine; PCP Family Medicine; Visit Provider Internal Medicine
DX: R07.89 Other chest pain (principal); L89.93 Pressure ulcer of unspecified site, stage 3; N18.6 End stage renal disease; I12.0 Hypertensive chronic kidney disease with stage 5 chronic kidney disease or end stage renal disease; I25.10 Atherosclerotic heart disease of native coronary artery without angina pectoris; Z95.5 Presence of coronary angioplasty implant and graft; Z99.2 Dependence on renal dialysis; E10.22 Type 1 diabetes mellitus with diabetic chronic kidney disease; E78.5 Hyperlipidemia, unspecified; Z79.4 Long term (current) use of insulin; Z93.3 Colostomy status; E87.5 Hyperkalemia; E10.43 Type 1 diabetes mellitus with diabetic autonomic (poly)neuropathy; K31.84 Gastroparesis; E66.9 Obesity, unspecified; F32.9 Major depressive disorder, single episode, unspecified; F41.9 Anxiety disorder, unspecified; F17.200 Nicotine dependence, unspecified, uncomplicated; D63.8 Anemia in other chronic diseases classified elsewhere
CPT/HCPCS: 36415; 80048; 82962; 84484; 85025; 85610; 85730; 90937; 93005; 93017; 93350; J1756; J7030; Q9957; A4216; C8928; G0257; J2405

== ENCOUNTER 2018-05-02 09:26 | Emergency (ER) | payer MEDICARE, MEDICAID, SELFPAY ==
[2018-05-02 09:27] VITALS: BP 164/78; PULSE 83; RESP 20; TEMP 36.6; O2SAT 98; BMI 31.6
[2018-05-02 10:36] LABS: Absolute Lymphocyte Count 0.89 X10^3/ul (0.83-4.51); Absolute Neutrophil Count 4.7 X10^3/uL (2.0-7.7); Basophil# 0.02 X10^3/uL; Basophil% 0.3 % (0-1); Eosinophil# 0.43 X10^3/uL; Eosinophils% 6.8 % (0-5); Hematocrit 31.7 % (37-47); Hemoglobin 10.1 g/dl (12.0-15.0); Lymphocyte # 0.89 X10^3/ul (4.0); Mean Corp Hgb Conc 31.9 g/gl (32-36); Mean Corpuscular Hgb 31.6 pg (27.0-32.0); Mean Corpuscular Volume 99.1 fL (81-99); Mean Platelet Vol. 8.5 fl (6.2-12.0); Monocyte# 0.25 X10^3/uL; Monocyte% 3.9 % (0-10); Neutrophil # 4.72 X10^3/uL (2.7-7.7); Neutrophil % 74.5 % (47-70); Platelet Count 180 K/mm3 (150-450); RBC Distribution Width CV 15.8 % (11.6-14.6); RBC Distribution Width SD 54.3 fl (35.1-43.9); White Blood Count 6.3 K/mm3 (4.4-11.0)
[2018-05-02 10:41] LABS: POSITIVE COUNT NO; POSITIVE DIFFERENTIAL NO; POSITIVE MORPHOLOGY NO
[2018-05-02] MEDS: proMETHazine 25 MG/ML Syringe 12.5 MG IV (10:58)
[2018-05-02] MEDS: 0.9% Normal Saline 1,000 ML 1000 ML IV (10:58)
[2018-05-02 11:02] LABS: ALB/GLOB Ratio 0.7 RATIO (0.9-2.4); AST(SGOT) 21 U/L (15-37); Alanine Aminotransfer ALT/SGPT 40 U/L (13-56); Alkaline Phosphatase 100 U/L (45-117); Anion Gap 9 (5-15); BUN 51 mg/dL (7-18); BUN/Creat Ratio 8.1 RATIO (10-20); Calcium,Total 9.3 mg/dL (8.5-10.1); Chloride 104 mmol/L (98-107); Creatinine, Serum 6.28 mg/dL (0.55-1.02); EST Glomerular Filtration Rate 8 mL/min (>60); Est Glom Filt Rate - Afr Amer 9 mL/min (>60); Globulin 4.5 g/dL (2.2-4.2); Glucose 129 mg/dL (74-106); Lipase 160 U/L (73-393); Potassium 4.9 mmol/L (3.5-5.1); Protein, Total 7.5 g/dL (6.4-8.2); Sodium Level 140 mmol/L (136-145)
[2018-05-02 11:04] VITALS: BP 193/87; PULSE 85; RESP 24; O2SAT 97
--- NOTE | 2018-05-02 11:44 | CT_ITS ---
STUDY: CT ABDOMEN AND PELVIS WITHOUT CONTRAST REASON FOR EXAM: Female, 42 years old. HX COLOSTOMY, DOMINGA,TUBAL LIG RADIATION DOSAGE (If Supplied By Facility): CTDIvol = ( 14.29 ) mGy, DLP = ( 767.55 ) mGycm TECHNIQUE: Transaxial images were obtained from the dome of the diaphragm to the symphysis pubis without oral contrast, and without intravenous contrast. Sagittal and coronal images were reconstructed. Individualized dose optimization techniques were used for this CT. COMPARISON: March 12, 2018 FINDINGS: Interstitial prominence is present at the lung bases which may reflect pulmonary vascular congestion. No pleural effusion. No focal lung infiltrate. Coronary vascular calcifications appear present. Normal liver. Normal gallbladder and extrahepatic biliary system. Normal spleen. Normal pancreas. There is symmetric enlargement of the adrenal glands suggesting adrenal hyperplasia. Additionally there appears a nodule associated with the left adrenal gland measuring approximately 1.76 cm with a Hounsfield unit measurement of -6. This suggests a underlying benign adrenal adenoma. Both kidneys are normal in size position and contour without evidence of obstruction or mass. There do appear heavy renal vascular calcifications and there is mild nonspecific perinephric stranding. Stomach is partially contracted otherwise unremarkable. Normal small intestine. Colostomy is noted midline. More inferior to the colostomy asymmetric to the right at there appears a abdominal wall defect that extends to the right abdominal wall but only fat is seen entering this hernia. There is non-visualization of the appendix. There is diffuse atherosclerotic calcification of the abdominal aorta, without a demonstrated aneurysm. Normal inferior vena cava. Normal retroperitoneum. Normal urinary bladder. No deep pelvic mass. There are diffuse degenerative changes of the visualized lumbar spine. Dextroscoliosis of the lumbar spine is noted. CT/Abdomen/Pelvis without Cont IMPRESSION: No acute intra-abdominal abnormality. Heavy renal vascular calcifications are noted. Interstitial prominence at the lung bases is suggestive of pulmonary vascular congestion. This is new when compared to previous exam. See above. Electronically Signed: Mica Ying MD at 12:35 EDT , Service support ,
[2018-05-02] MEDS: Acetaminophen 500 MG Tablet 1000 MG PO (13:01)
[2018-05-02] MEDS: Dicyclomine 10 MG Capsule 20 MG PO (13:01)
[2018-05-02 13:12] VITALS: BP 176/89; PULSE 79; RESP 15; O2SAT 94
--- NOTE | 2018-05-02 13:41 | ED.VISSUMM ---
- ER Visit Summary Date of Service: 05/02/18 Chief Complaint: Vomiting History of Present Illness: The patient is a 42 F who states that she has been unable to keep anything down for 1 week and this includes medications food and all water. She had dialysis yesterday. She states that she stopped taking her on some 3 days ago because she was not eating. She also stopped her aspirin her blood pressure medications but not her Plavix as she is been able to keep that down. Multiple medical problems including diabetes hypertension recent coronary artery stent placement in February and end-stage renal disease. No fevers. No diarrhea. Normal output in the colostomy she has had no relief with her Phenergan. Physical Examination: Afebrile vital signs are stable Gen: Well-nourished well-developed Head: Normocephalic atraumatic Eyes: Perrl EOMI ENT: TMs clear no rhinorrhea moist mucous membranes Neck: Supple no lymphadenopathy no JVD nontender CVS: Regular rate rhythm no murmurs normal S1-S2 Respiratory: No distress clear to auscultation bilaterally chest nontender Abdomen: Soft nontender nondistended normal bowel sounds no masses colostomy bag present, pink Back: Nontender Extremity: Nontender no edema Skin: Normal color no rash Neuro: alert orientated ?3 CN II-XII intact normal strength sensation reflexes gait cerebellar Psych: Normal affect normal mood Test Results: Sick labs were essentially negative except for creatinine 6.28 glucose 129 BUN of 51 hemoglobin of 10. Ketones are negative. CT abdomen pelvis not demonstrate any obstruction. Emergency Department Course and Treatment: Patient received IV fluids Phenergan Bentyl and Tylenol. No vomiting. She will be discharged home prescription for Zofran. Impression: 1. Nausea vomiting This note was generated with [employer] dictation software. It may contain incorrect words, spelling, and punctuation that were not noted in review of the chart prior to signing ED Disposition - Plan for ED Patient: Disposition: Home or Assisted Living Chief Complaint: Nausea/Vomiting/Diarrhea Instructions: ED Nausea Vomiting Prescriptions: Ondansetron [Zofran Odt] 4 mg PO Q6H PRN PRN #10 tab PRN Reason: Nausea Referrals: Christopher Foy MD [Primary Care Provider] - 3-5 Days
[2018-05-02 13:46] VITALS: BP 167/82; PULSE 83; RESP 17; O2SAT 94
== END 2018-05-02 13:48 | disposition home or self-care (01) ==
PROVIDERS: Emergency Provider Emergency Medicine; Family Provider Family Medicine; PCP Family Medicine
DX: R11.2 Nausea with vomiting, unspecified (principal); E11.22 Type 2 diabetes mellitus with diabetic chronic kidney disease; I12.0 Hypertensive chronic kidney disease with stage 5 chronic kidney disease or end stage renal disease; N18.6 End stage renal disease; I25.10 Atherosclerotic heart disease of native coronary artery without angina pectoris; E66.9 Obesity, unspecified; Z72.0 Tobacco use; Z95.5 Presence of coronary angioplasty implant and graft
CPT/HCPCS: 74176; 80053; 82009; 83690; 85025; 96361; 96374; 99285; J7030; A4216

== ENCOUNTER 2018-05-12 14:21 | Inpatient (IN) | payer MEDICARE, MEDICAID, SELFPAY ==
[2018-05-12] VITALS (12 sets, daily range): BP systolic 152–175; BP diastolic 75–98; PULSE 88–96; RESP 14–18; TEMP 36.8–37; O2SAT 93–96; BMI 31.3; BMI 30.9
--- NOTE | 2018-05-12 14:24 | RAD_ITS ---
STUDY: X-RAY CHEST REASON FOR EXAM: Female, 42 years old. Left-sided chest pain TECHNIQUE: Single AP portable view of the chest. # of Images: 1 COMPARISON: March 25, 2018 FINDINGS: The lungs are clear and expanded. There is no demonstrated pleural abnormality. There is mild cardiac enlargement. Normal mediastinum and latrell. Normal visualized pulmonary arteries. Normal visualized aortic arch and descending thoracic aorta. Normal visualized thoracic spine. Normal visualized ribs, clavicles, and shoulders. There is no demonstrated abnormality of the visualized soft tissue structures of the upper abdomen. RAD/Chest 1 View (Portable) IMPRESSION: No acute findings Electronically Signed: Quincy Pulido DO at 14:58 EDT Tel , Service support ,
--- NOTE | 2018-05-12 14:24 | EKG12_ITS ---
Test Reason : CP Blood Pressure : / mmHG Vent. Rate : 089 BPM Atrial Rate : 089 BPM P-R Int : 132 ms QRS Dur : 092 ms QT Int : 394 ms P-R-T Axes : 044 047 220 degrees QTc Int : 479 ms Normal sinus rhythm Moderate voltage criteria for LVH, may be normal variant Non specific T wave abnormality Prolonged QT Abnormal ECG Confirmed by CHEPE BEASLEY, KAITLYNN ([id number]), assistant film editor GISELA YOUNG ([id number]) on 05/15/2018 11:10:20 AM Referred By: DANIE Confirmed By:KAITLYNN MO MD
[2018-05-12 14:36] LABS: Absolute Lymphocyte Count 0.67 X10^3/ul (0.83-4.51); Eosinophil# 0.18 X10^3/uL; Eosinophils% 4.4 % (0-5); Hematocrit 28.6 % (37-47); Hemoglobin 9.1 g/dl (12.0-15.0); Lymphocyte # 0.67 X10^3/ul (4.0); Lymphocyte % 16.4 % (19-41); Mean Corp Hgb Conc 31.8 g/gl (32-36); Mean Corpuscular Hgb 30.6 pg (27.0-32.0); Mean Corpuscular Volume 96.3 fL (81-99); Mean Platelet Vol. 8.1 fl (6.2-12.0); Monocyte# 0.28 X10^3/uL; Monocyte% 6.8 % (0-10); Neutrophil # 2.95 X10^3/uL (2.7-7.7); Neutrophil % 72.2 % (47-70); POSITIVE COUNT NO; POSITIVE DIFFERENTIAL NO; POSITIVE MORPHOLOGY NO; Platelet Count 95 K/mm3 (150-450); RBC Distribution Width CV 16.2 % (11.6-14.6); RBC Distribution Width SD 57.1 fl (35.1-43.9); Red Blood Count 2.97 M/mm3 (4.2-5.4); White Blood Count 4.1 K/mm3 (4.4-11.0)
--- NOTE | 2018-05-12 14:54 | ED.VISSUMM ---
- ER Visit Summary Date of Service: 05/12/18 Chief Complaint: Mid sternal sharp chest pain with dyspnea. History of Present Illness: The patient is a 42 F who arrived by squad from dialysis because of sharp midsternal chest discomfort with dyspnea. This is similar to her anginal pain. Over the last several days she had dyspnea exertion and chest discomfort with exertion and alleviated with rest. She had recent cardiac catheterization with angioplasty and stent placement LAD by Dr. Magdaleno. She has a 50% stenosis of her obtuse marginal. EKG that was transmitted by squad is concerning for Wellen syndrome. The EKG is new from prior. Patient has history coronary disease, NE, hypertension, hypercholesterolemia, stage renal disease, respiratory failure, depression. EF has varied between 45 and 55%. She is status post repair of PDA. There is significant hypokinesis involving the inferior posterior basilar and mid ventricular wall. Physical Examination: Vital signs are noted. Blood pressure is 173/90. She is not febrile. Head is atraumatic normocephalic. Pupils are equal round reactive. Extraocular muscles are intact. TMs are pearly white with landmarks noted. Nares patent with no drainage. Posterior pharynx without erythema or exudate. Uvula is midline. There is no dysphonia or dysphasia. Trachea is midline. There is no stridor with auscultation of the neck. Heart is regular without murmur, gallop or rub. Lungs reveal rales at both bases. Abdomen soft nontender. There is stigmata of peripheral arterial disease lower extremity. There is no pitting edema. Neuro exam is nonfocal. Please read written note for complete detail Test Results: EKG performed with discomfort reveals biphasic T waves in V1 and V2 which is a variant of Wellen syndrome. Portable chest x-ray reveals pulmonary congestion/fluid overload. H&H 9.1 28.6, which is baseline. Emergency Department Course and Treatment: Patient received 4 baby aspirin in route. She received nitroglycerin with improvement of her pain. Case was discussed with Dr. Green who agrees with heparin anticoagulation. He was informed of her EKG changes. Treatment Plan: Admit PCU if stable Disposition: PCU Impression: 1. Acute coronary syndrome, Wellen syndrome 2. Fluid overload secondary to end-stage renal disease 3. Nonspecified anemia 4. History of end-stage renal disease on hemodialysis 5. History of hypertension 6. History hypercholesterolemia This note was generated with [employer] dictation software. It may contain incorrect words, spelling, and punctuation that were not noted in review of the chart prior to signing ED Disposition - Plan for ED Patient: Chief Complaint: Chest Pain Referrals: Christopher Foy MD [Primary Care Provider] -
[2018-05-12 14:58] LABS: Anion Gap 7 (5-15); BUN 32 mg/dL (7-18); BUN/Creat Ratio 6.5 RATIO (10-20); Calcium,Total 7.4 mg/dL (8.5-10.1); Chloride 98 mmol/L (98-107); Creatinine, Serum 4.96 mg/dL (0.55-1.02); EST Glomerular Filtration Rate 10 mL/min (>60); Est Glom Filt Rate - Afr Amer 12 mL/min (>60); Estimated Creatinine Clearance 13.55 ml/min; Glucose 248 mg/dL (74-106); Potassium 3.7 mmol/L (3.5-5.1); Sodium Level 137 mmol/L (136-145)
[2018-05-12] MEDS: Heparin Injection (Vial) 5,000 UNIT/ML VIAL 6000 UNIT IV (15:35)
[2018-05-12] MEDS: HEPARIN/D5w 25,000 UNITS 25,000 UNITS/250 ML IV.SOLN. 12 UNITS IV (15:37)
[2018-05-12] MEDS: Nitroglycerin Oint 1 INCH PACKET TRANSDERM. (15:37)
--- NOTE | 2018-05-12 16:07 | PCM.CONS.R ---
Problem List (1) ESRD (end stage renal disease) on dialysis Status: Chronic Consultation - Renal 05/12/18 PCP/ Referring MD: Requesting physician: Dr phipps Primary care physician: Christopher Foy Reason for Consultation:: ESRD - History of Present Illness History of Present Illness: The patient is a 42 year old F well known to us. ESRD on HD TTS schedule. last HD today earlier recently was admitted here at [facility]. had stents placed by Dr Magdaleno. came back with chest pain, now on heparin drip feels somewhat better since admission no breathing issues access is AVF - Allergies Allergies: Allergies latex Allergy (Verified 05/02/18 09:29) Rash levofloxacin [From Levaquin] Adverse Reaction (Verified 05/02/18 09:29) PT CAN'T REMEMBER PT CAN'T REMEMBER metoclopramide HCl [From Reglan] Adverse Reaction (Verified 05/02/18 09:29) Nausea NSAIDS (Non-Steroidal Anti-Inflamma Adverse Reaction (Verified 05/02/18 09:29) kidney function oxycodone HCl [From Percocet] Adverse Reaction (Verified 05/02/18 09:29) HALLUCINATIONS - Current Medications Current Medications: Current Medications Acetaminophen (Tylenol) 650 mg PO Q6H PRN PRN PRN Reason: Mild Pain (1-3)/Temp > 100.7 F Aspirin (Aspirin, Baby) 81 mg PO DAILY@0800 [facility] Atorvastatin Calcium (Lipitor) 20 mg PO QHS [facility] Calcium Acetate (Phoslo Gel Cap) 1,334 mg PO TIDCM [facility] Carvedilol (Coreg) 25 mg PO BID [facility] Clopidogrel Bisulfate (Plavix) 75 mg PO DAILY [facility] Heparin Sodium (Porcine) (Heparin Na) 0 unit IV UD PRN; Protocol Heparin Sodium/Dextrose () 25,000 units in 250 mls @ 12 mls/hr IV .[id number] [facility]; Protocol Last Admin: 05/12/18 15:37 Dose: 12 mls/hr Isosorbide Mononitrate (Imdur) 60 mg PO X1 ONE Stop: 05/12/18 15:54 Isosorbide Mononitrate (Imdur) 120 mg PO DAILY [facility] Lisinopril (Zestril) 40 mg PO DAILY [facility] Magnesium Hydroxide (Milk Of Magnesia) 30 ml PO DAILY PRN PRN Reason: Constipation Morphine Sulfate () 2 - 4 mg IV Q4H PRN PRN PRN Reason: MOD-SEVERE PAIN (-05/02) Non-Formulary Medication (Fluoxetine Hcl [Fluoxetine Hcl]) 40 mg PO DAILY [place] Non-Formulary Medication (Insulin Aspart [Novolog Flexpen]) 10 units SC TIDCM [place] Non-Formulary Medication (Insulin Glargine,Hum.Rec.Anlog) 4 unit SQ QHS [place] Non-Formulary Medication (Omeprazole Magnesium [Prilosec Otc]) 20 mg PO DAILY [place] Promethazine HCl (Phenergan Tablet) 25 mg PO Q6H PRN PRN PRN Reason: NAUSEA Sodium Bicarbonate (Sodium Bicarbonate) 650 mg PO 4X/DAY [place] - Past Medical History Past Medical History (Chronic Problems): Chronic Problems (Last Updated 02/27/18 @ 10:29 by Pricila Olson) Stented coronary artery (Chronic 02/26/18) FFR of LAD 0.82; VIKY of mid LAD with 2.5 X 24 mm Promus Synergy, OM <50% stenosis per Dr. Magdaleno @ [facility] Atherosclerotic heart disease of [place] coronary artery without angina pectoris (Chronic) S/P PTCA/VIKY to mid LAD in February 2018 OM #1 noted to be 50%; ESRD (end stage renal disease) on dialysis (Chronic) Decubitus ulcer, stage III (Chronic) Anemia, chronic disease (Chronic) Pilonidal cyst with abscess (Chronic) GABRIEL (obstructive sleep apnea) (Chronic) Depression (Chronic) Anxiety (Chronic) HTN (hypertension) (Chronic) Diabetes mellitus type 1 (Chronic) Hyperlipidemia (Chronic) Obesity (BMI 30.0-34.9) (Chronic) Gastroparesis (Chronic) - Past Surgical History Surgical History: appendectomy, hysterectomy - and BSO, - - c-sections, L breast I+D for abscess, fistula placement LUE, L ankle surgery, appendectomy, PDA repair. Excision pilonidal cyst ulcer about 4 years ago. Colostomy placed due to rectal abscess/wound, patent ductus repair - Social History Smoking Status: Former smoker - Family History Maternal History Items: Cancer, COPD, Diabetes, Hypertension, Renal Disease, Stroke Paternal History Items: Diabetes Sibling History Items: Cancer, Diabetes Review of Systems Constitutional: Denies: Chills, Fever, Weight Change HEENT: Denies: Head Aches, Sinus Congestion, Sinus Drainage Cardiovascular: Denies: Chest Pain, Palpitations Respiratory: Denies: Cough, Shortness of breath at rest, Sputum production Gastrointestinal: Denies: Abdominal Pain, Nausea, Vomiting Genitourinary: Denies: Dysuria Musculoskeletal: Denies: Joint Pain, Joint Tenderness Skin: Denies: Rash, Wounds Neurological: Denies: Numbness, Tingling, Focal weakness Psychiatric: Denies: Anxiety, Depression, Homicidal Ideations, Suicidal Ideations Hematologic/ Lymphatic: Denies: Easy Bruising, Easy Bleeding - Physical Exam General: Alert, Oriented x3, Cooperative HEENT: Atraumatic, PERRLA, EOMI, Normocephalic Neck: Supple, No JVD, Negative Carotid Bruits Lungs: Clear to auscultation, Normal air movement Cardiovascular: Regular rate, No murmurs Abdomen: Bowel Sounds Present, Soft, Non Tender Extremities: No edema, Capillary Refill Less than 3 Seconds Skin: No rashes, No breakdown Musculoskeletal: No Tenderness to Palpation of Joints or Extremities Neurological: Cranial nerves II-XII grossly intact Psych/Mental Status: Normal Affect, Appropriate Vital Signs Temp Pulse Resp BP Pulse Ox 98.2 F 89 16 170/81 H 96 05/12/18 14:22 05/12/18 15:37 05/12/18 14:22 05/12/18 15:37 05/12/18 14:29 Oxygen Delivery Method Room Air Weight: 88.1 kg Body Mass Index (BMI) 31.3 Finger Stick Blood Glucose 118 Laboratory Tests Past 24 Hrs 05/12/18 05/12/18 05/12/18 14:28 14:28 14:28 WBC 4.1 L RBC 2.97 L Hgb 9.1 L Hct 28.6 L MCV 96.3 MCH 30.6 MCHC 31.8 L RDW 16.2 H RDW Differential 57.1 H Plt Count 95 L MPV 8.1 Immature Gran % (Auto) 0.200 Neut % (Auto) 72.2 H Lymph % (Auto) 16.4 L [place] % (Auto) 6.8 Eos % (Auto) 4.4 Baso % (Auto) 0.0 Absolute Neuts (auto) 3.0 Absolute Lymphs (auto) 0.67 L Total Counted Not Reportable PT Pending INR Pending APTT Pending Sodium 137 Potassium 3.7 Chloride 98 Carbon Dioxide 32.0 Anion Gap 7 BUN 32 H Creatinine 4.96 H Estim Creat Clear Calc 13.55 Est GFR (MDRD) Af Amer 12 L Est GFR (MDRD) Non-Af 10 L BUN/Creatinine Ratio 6.5 L Glucose 248 H Calcium 7.4 L Troponin I 0.023 Assessment/Plan All Active Problems (Last Updated 02/27/18 @ 10:29 by Pricila Olson) Nausea & vomiting (Acute) Migraine (Acute) Metabolic encephalopathy (Acute) Abnormal electrocardiogram [ECG] [EKG] (Acute) Chest pain (Acute) Tooth abscess (Resolved) Intractable nausea and vomiting (Resolved) Pneumonia (Resolved) Pulmonary edema (Resolved) Hyperkalemia (Resolved) Atypical chest pain (Resolved) Acute hypoxic respiratory failure (Resolved) Pulmonary edema (Resolved) Clostridium difficile enterocolitis (Resolved) Necrotizing myositis (Resolved) Nonischemic cardiomyopathy (Resolved) S/P repair of PDA (patent ductus arteriosus) (Resolved) Dysmenorrhea (Resolved) Hx of necrotizing fascIItis (Resolved) Iron deficiency anemia due to chronic blood loss (Resolved) Systolic congestive heart failure (Resolved) ESRD. on HD TTS schedule. Called dialysis unit. she had most of her treatment except for last one hour. currently labs looks ok. CXR looks ok. hold further dialysis for now Chest pain. recent cardiac intervention. on heparin drip Anemia. Hb is below goal. ESTUARDO with HD will follow Thank you
[2018-05-12 16:10] LABS: International Normalized Ratio 1.1; Prothrombin Time (Protime)PT. 14.2 SECONDS (11.7-14.9)
--- NOTE | 2018-05-12 16:10 | CON.PCM_ITS ---
Problem List (1) ESRD (end stage renal disease) on dialysis Status: Chronic Consultation - Renal 05/12/18 PCP/ Referring MD: Requesting physician: Dr phipps Primary care physician: Christopher Foy Reason for Consultation:: ESRD - History of Present Illness History of Present Illness: The patient is a 42 year old F well known to us. ESRD on HD TTS schedule. last HD today earlier recently was admitted here at [facility]. had stents placed by Dr Magdaleno. came back with chest pain, now on heparin drip feels somewhat better since admission no breathing issues access is AV[facility] - Allergies Allergies: Allergies latex Allergy (Verified 05/02/18 09:29) Rash levofloxacin [From Levaquin] Adverse Reaction (Verified 05/02/18 09:29) PT CAN'T REMEMBER PT CAN'T REMEMBER metoclopramide HCl [From Reglan] Adverse Reaction (Verified 05/02/18 09:29) Nausea NSAIDS (Non-Steroidal Anti-Inflamma Adverse Reaction (Verified 05/02/18 09:29) kidney function oxycodone HCl [From Percocet] Adverse Reaction (Verified 05/02/18 09:29) HALLUCINATIONS - Current Medications Current Medications: Current Medications Acetaminophen (Tylenol) 650 mg PO Q6H PRN PRN PRN Reason: Mild Pain (1-3)/Temp > 100.7 F Aspirin (Aspirin, Baby) 81 mg PO DAILY@0800 [facility] Atorvastatin Calcium (Lipitor) 20 mg PO QHS [facility] Calcium Acetate (Phoslo Gel Cap) 1,334 mg PO TIDCM [facility] Carvedilol (Coreg) 25 mg PO BID [facility] Clopidogrel Bisulfate (Plavix) 75 mg PO DAILY [facility] Heparin Sodium (Porcine) (Heparin Na) 0 unit IV UD PRN; Protocol Heparin Sodium/Dextrose () 25,000 units in 250 mls @ 12 mls/hr IV .[id number] [facility]; Protocol Last Admin: 05/12/18 15:37 Dose: 12 mls/hr Isosorbide Mononitrate (Imdur) 60 mg PO X1 ONE Stop: 05/12/18 15:54 Isosorbide Mononitrate (Imdur) 120 mg PO DAILY [facility] Lisinopril (Zestril) 40 mg PO DAILY [facility] Magnesium Hydroxide (Milk Of Magnesia) 30 ml PO DAILY PRN PRN Reason: Constipation Morphine Sulfate () 2 - 4 mg IV Q4H PRN PRN PRN Reason: MOD-SEVERE PAIN (-05/02) Non-Formulary Medication (Fluoxetine Hcl [Fluoxetine Hcl]) 40 mg PO DAILY [facility] Non-Formulary Medication (Insulin Aspart [Novolog Flexpen]) 10 units SC TIDCM [facility] Non-Formulary Medication (Insulin Glargine,Hum.Rec.Anlog) 4 unit SQ QHS [facility] Non-Formulary Medication (Omeprazole Magnesium [Prilosec Otc]) 20 mg PO DAILY [facility] Promethazine HCl (Phenergan Tablet) 25 mg PO Q6H PRN PRN PRN Reason: NAUSEA Sodium Bicarbonate (Sodium Bicarbonate) 650 mg PO 4X/DAY [facility] - Past Medical History Past Medical History (Chronic Problems): Chronic Problems (Last Updated 02/27/18 @ 10:29 by Pricila Olson) Stented coronary artery (Chronic 02/26/18) FFR of LAD 0.82; VIKY of mid LAD with 2.5 X 24 mm Promus Synergy, OM <50% stenosis per Dr. Magdaleno @ [facility] Atherosclerotic heart disease of [place] coronary artery without angina pectoris (Chronic) S/P PTCA/VIKY to mid LAD in February 2018 OM #1 noted to be 50%; ESRD (end stage renal disease) on dialysis (Chronic) Decubitus ulcer, stage III (Chronic) Anemia, chronic disease (Chronic) Pilonidal cyst with abscess (Chronic) GABRIEL (obstructive sleep apnea) (Chronic) Depression (Chronic) Anxiety (Chronic) HTN (hypertension) (Chronic) Diabetes mellitus type 1 (Chronic) Hyperlipidemia (Chronic) Obesity (BMI 30.0-34.9) (Chronic) Gastroparesis (Chronic) - Past Surgical History Surgical History: appendectomy, hysterectomy - and BSO, - - c-sections, L breast I+D for abscess, fistula placement LUE, L ankle surgery, appendectomy, PDA repair. Excision pilonidal cyst ulcer about 4 years ago. Colostomy placed due to rectal abscess/wound, patent ductus repair - Social History Smoking Status: Former smoker - Family History Maternal History Items: Cancer, COPD, Diabetes, Hypertension, Renal Disease, Stroke Paternal History Items: Diabetes Sibling History Items: Cancer, Diabetes Review of Systems Constitutional: Denies: Chills, Fever, Weight Change HEENT: Denies: Head Aches, Sinus Congestion, Sinus Drainage Cardiovascular: Denies: Chest Pain, Palpitations Respiratory: Denies: Cough, Shortness of breath at rest, Sputum production Gastrointestinal: Denies: Abdominal Pain, Nausea, Vomiting Genitourinary: Denies: Dysuria Musculoskeletal: Denies: Joint Pain, Joint Tenderness Skin: Denies: Rash, Wounds Neurological: Denies: Numbness, Tingling, Focal weakness Psychiatric: Denies: Anxiety, Depression, Homicidal Ideations, Suicidal Ideations Hematologic/ Lymphatic: Denies: Easy Bruising, Easy Bleeding - Physical Exam General: Alert, Oriented x3, Cooperative HEENT: Atraumatic, PERRLA, EOMI, Normocephalic Neck: Supple, No JVD, Negative Carotid Bruits Lungs: Clear to auscultation, Normal air movement Cardiovascular: Regular rate, No murmurs Abdomen: Bowel Sounds Present, Soft, Non Tender Extremities: No edema, Capillary Refill Less than 3 Seconds Skin: No rashes, No breakdown Musculoskeletal: No Tenderness to Palpation of Joints or Extremities Neurological: Cranial nerves II-XII grossly intact Psych/Mental Status: Normal Affect, Appropriate Vital Signs Temp Pulse Resp BP Pulse Ox 98.2 F 89 16 170/81 H 96 05/12/18 14:22 05/12/18 15:37 05/12/18 14:22 05/12/18 15:37 05/12/18 14:29 Oxygen Delivery Method Room Air Weight: 88.1 kg Body Mass Index (BMI) 31.3 Finger Stick Blood Glucose 118 Laboratory Tests Past 24 Hrs 05/12/18 05/12/18 05/12/18 14:28 14:28 14:28 WBC 4.1 L RBC 2.97 L Hgb 9.1 L Hct 28.6 L MCV 96.3 MCH 30.6 MCHC 31.8 L RDW 16.2 H RDW Differential 57.1 H Plt Count 95 L MPV 8.1 Immature Gran % (Auto) 0.200 Neut % (Auto) 72.2 H Lymph % (Auto) 16.4 L [place] % (Auto) 6.8 Eos % (Auto) 4.4 Baso % (Auto) 0.0 Absolute Neuts (auto) 3.0 Absolute Lymphs (auto) 0.67 L Total Counted Not Reportable PT Pending INR Pending APTT Pending Sodium 137 Potassium 3.7 Chloride 98 Carbon Dioxide 32.0 Anion Gap 7 BUN 32 H Creatinine 4.96 H Estim Creat Clear Calc 13.55 Est GFR (MDRD) Af Amer 12 L Est GFR (MDRD) Non-Af 10 L BUN/Creatinine Ratio 6.5 L Glucose 248 H Calcium 7.4 L Troponin I 0.023 Assessment/Plan All Active Problems (Last Updated 02/27/18 @ 10:29 by Pricila Olson) Nausea & vomiting (Acute) Migraine (Acute) Metabolic encephalopathy (Acute) Abnormal electrocardiogram [ECG] [EKG] (Acute) Chest pain (Acute) Tooth abscess (Resolved) Intractable nausea and vomiting (Resolved) Pneumonia (Resolved) Pulmonary edema (Resolved) Hyperkalemia (Resolved) Atypical chest pain (Resolved) Acute hypoxic respiratory failure (Resolved) Pulmonary edema (Resolved) Clostridium difficile enterocolitis (Resolved) Necrotizing myositis (Resolved) Nonischemic cardiomyopathy (Resolved) S/P repair of PDA (patent ductus arteriosus) (Resolved) Dysmenorrhea (Resolved) Hx of necrotizing fascIItis (Resolved) Iron deficiency anemia due to chronic blood loss (Resolved) Systolic congestive heart failure (Resolved) ESRD. on HD TTS schedule. Called dialysis unit. she had most of her treatment except for last one hour. currently labs looks ok. CXR looks ok. hold further dialysis for now Chest pain. recent cardiac intervention. on heparin drip Anemia. Hb is below goal. ESTUARDO with HD will follow Thank you
[2018-05-12 16:11] LABS: Partial Thromboplast Time 35.6 Seconds (24.1-36.2)
--- NOTE | 2018-05-12 16:24 | PCM.HP.STD ---
Problem List (1) Chest pain Status: Acute Qualifiers: Chest pain type: precordial pain Qualified Code(s): R07.2 - Precordial pain History of Present Illness Date of Admission: 05/12/18 Chief Complaint: Chest pain The patient is a 42 year old F who was seen in the emergency room at [facility] with chief complaint of precordial chest pain in her left upper chest area radiating into her left neck area. She states she has been having it off and on for several days, today she was at dialysis when the discomfort began, she states that this chest discomfort is like a stabbing pain, she states that it only last for 10 seconds and it is brought on more with activity than at rest. Patient has a history of coronary artery disease and underwent stent placement in February 2018. She had an echo stress done and March of this year that was negative. EKG obtained in the emergency room-patient states she was probably having chest pain at the time-shows T wave depression in the inferior and lateral wall leads, this is similar to an EKG that was done in February of this year. Her last EKG done in March of this year that we have on file here does not show these T wave inversions. She had a chest x-ray which showed no acute findings, labs were remarkable for a white blood cell count of 4.1, hemoglobin of 9.1, creatinine of 4.96, BUN of 32, and glucose of 248. Patient's troponin was 0.023. Patient was started on a heparin drip by the emergency room physician and cardiology was contacted and she will be admitted for unstable angina to PCU. She will be seen in consultation by cardiology. Past Medical History Past Medical History (Chronic Problems): Chronic Problems (Last Updated 02/27/18 @ 10:29 by Pricila Olson) Stented coronary artery (Chronic 02/26/18) FFR of LAD 0.82; VIKY of mid LAD with 2.5 X 24 mm Promus Synergy, OM <50% stenosis per Dr. Magdaleno @ [facility] Atherosclerotic heart disease of [place] coronary artery without angina pectoris (Chronic) S/P PTCA/VIKY to mid LAD in February 2018 OM #1 noted to be 50%; ESRD (end stage renal disease) on dialysis (Chronic) Decubitus ulcer, stage III (Chronic) Anemia, chronic disease (Chronic) Pilonidal cyst with abscess (Chronic) GABRIEL (obstructive sleep apnea) (Chronic) Depression (Chronic) Anxiety (Chronic) HTN (hypertension) (Chronic) Diabetes mellitus type 1 (Chronic) Hyperlipidemia (Chronic) Obesity (BMI 30.0-34.9) (Chronic) Gastroparesis (Chronic) Medical History: Medical History (Last Updated 02/27/18 @ 10:29 by Pricila Olson) Atherosclerotic heart disease of [place] coronary artery without angina pectoris (Chronic) I25.10 S/P PTCA/VIKY to mid LAD in February 2018 OM #1 noted to be 50%; ESRD (end stage renal disease) on dialysis (Chronic) N18.6, Z99.2 Decubitus ulcer, stage III (Chronic) L89.93 Anemia, chronic disease (Chronic) D63.8 Pilonidal cyst with abscess (Chronic) L05.01 GABRIEL (obstructive sleep apnea) (Chronic) G47.33 HTN (hypertension) (Chronic) I10 Nonischemic cardiomyopathy (Resolved) I42.8 Diabetes mellitus type 1 (Chronic) Hyperlipidemia (Chronic) E78.5 Obesity (BMI 30.0-34.9) (Chronic) E66.9 Gastroparesis (Chronic) K31.84 Allergies latex Allergy (Verified 05/02/18 09:29) Rash levofloxacin [From Levaquin] Adverse Reaction (Verified 05/02/18 09:29) PT CAN'T REMEMBER PT CAN'T REMEMBER metoclopramide HCl [From Reglan] Adverse Reaction (Verified 05/02/18 09:29) Nausea NSAIDS (Non-Steroidal Anti-Inflamma Adverse Reaction (Verified 05/02/18 09:29) kidney function oxycodone HCl [From Percocet] Adverse Reaction (Verified 05/02/18 09:29) HALLUCINATIONS Home Medications: Ambulatory Orders Medication Instructions Recorded Aspirin [Aspirin, Baby] 81 mg PO DAILY@0800 01/26/16 Calcium Acetate [Phoslo Gel Cap] 1,334 mg PO TIDCM 01/26/16 Ergocalciferol [Vitamin D] 50,000 unit PO FR 01/26/16 Insulin Aspart [Novolog Flexpen] 10 units SC TIDCM 01/26/16 Insulin Glargine,Hum.rec.anlog 4 unit SQ QHS 01/09/17 [Lantus] proMETHazine tablet [Phenergan 25 mg PO Q6H PRN PRN #10 tab 03/06/17 tablet] Lisinopril 40 mg PO DAILY 03/29/17 Sodium Bicarbonate 650 mg PO 4X/DAY 03/29/17 Fluoxetine HCl 40 mg PO DAILY 09/02/17 ALPRAZolam [Xanax] 0.5 mg PO TUTHSA 11/21/17 Omeprazole Magnesium [Prilosec Otc] 20 mg PO DAILY 02/08/18 Clopidogrel Bisulfate [Plavix] 75 mg PO DAILY #90 tab 02/27/18 Isosorbide Mononitrate [Isosorbide 60 mg PO DAILY 02/28/18 Mononitrate ER] Ondansetron [Zofran Odt] 4 mg PO Q8H PRN PRN #10 tab 03/12/18 carvedilol 25 mg tablet 25 mg PO BID 03/14/18 Atorvastatin Calcium 20 mg PO QHS 03/17/18 Surgical History: Surgical History (Last Updated 02/27/18 @ 10:29 by Pricila Olson) Stented coronary artery (Chronic) Onset Date: 02/26/18 Z95.5 FFR of LAD 0.82; VIKY of mid LAD with 2.5 X 24 mm Promus Synergy, OM <50% stenosis per Dr. Magdaleno @ [facility] S/P repair of PDA (patent ductus arteriosus) (Resolved) Z98.890, Z87.74 At young age Surgical History: appendectomy, hysterectomy - and BSO, - - c-sections, L breast I+D for abscess, fistula placement LUE, L ankle surgery, appendectomy, PDA repair. Excision pilonidal cyst ulcer about 4 years ago. Colostomy placed due to rectal abscess/wound, patent ductus repair, drug-eluting stent placement left anterior descending coronary artery February 2018 Psychiatric History: No pertinent psych hx [employer] History: No pertinent [employer] history Lives: Spouse/ Significant Other Smoking Status: Former smoker Tobacco Use: Non-smoker Alcohol: None Drugs: None - *Family History Maternal History Items: Cancer, COPD, Diabetes, Hypertension, Renal Disease, Stroke Paternal History Items: Diabetes Sibling History Items: Cancer, Diabetes Review of Systems Constitutional: Denies: Anorexia, Chills, Fever, Night Sweats, Weakness, Weight Change Eyes: Denies: Blurred vision, Cataracts, Conjunctivae Inflammation, Double vision, Drainage HEENT: Denies: Difficulty Hearing, Difficulty Swallowing, Dysphasia, Ear Pain, Eye Pain, Head Aches, Hearing Changes, Nasal bleeding, Nasal Congestion, Post Nasal Drip Cardiovascular: Reports: Chest Pain. Denies: Claudication, Chest Pressure, Chest Tightness, Edema, Heaviness, Light Headedness, Orthopnea, Palpitations, Paroxysmal Noc. Dyspnea, Syncope Respiratory: Denies: Cough, Hemoptysis, Pleuritic Pain, Shortness of Breath, Shortness of breath at rest, Shortness of breath upon exertion Gastrointestinal: Denies: Abdominal Pain, Constipation, Diarrhea, Hematemesis, Hematochezia, Nausea, Melena, Vomiting Genitourinary: Denies: Dysuria, Frequency, Hematuria, Hesitancy, Urgency Gynecological: Denies: Breast symptoms Musculoskeletal: Denies: Back Pain, Foot Pain, Hand Pain, Joint Pain, Joint stiffness, Joint swelling, Joint Tenderness, Leg Pain Skin: Denies: Dryness, Pruritis, Rash Neurological: Denies: Blurred vision, Double vision, Slurred speech, Difficulty swallowing, Focal weakness, Headaches, Numbness, Tingling Psychiatric: Denies: Anxiety, Depression, Homicidal Ideations, Suicidal Ideations Endocrine: Denies: Change in Body Habitus, Heat/ Cold Intolerance, Polydipsia, Polyuria Hematologic/ Lymphatic: Denies: Adenopathy, Anemia, Easy Bruising, Easy Bleeding, Petechiae, Purpura VTE Information - Inpt Only VTE Present on Admission: No VTE Mechan Device Prophylaxis: None VTE Pharm Prophylaxis ordered?: No Reason prophylaxis not ordered:: Medical Contraindication - on continuous heparin drip - Physical Exam General: Alert, Oriented x3, Cooperative, No apparent distress, Well developed, Well nourished HEENT: Atraumatic, PERRLA, EOMI, Normocephalic Oral: Moist Mucosa Neck: Supple, Trachea Midline, Thyroid Normal Size and Texture Lungs: Clear to auscultation, Normal air movement, No rhonchi, No wheeze, No rales Cardiovascular: Regular rate, Regular Rhythm, Normal S1, Normal S2, No murmurs, No Ectopic Activity, PMI Normal, No rub noted, No Gallop Abdomen: Bowel Sounds Present, Soft, Non Tender, Non-Distended, No hernias noted Extremities: No clubbing, No cyanosis, No edema, Capillary Refill Less than 3 Seconds Skin: No rashes, No breakdown Musculoskeletal: No Tenderness to Palpation of Joints or Extremities Neurological: Cranial nerves II-XII grossly intact, Neuro grossly intact, Sensory exam intact to light touch and pain, Coordination normal Psych/Mental Status: Normal Affect, Appropriate, Alert and oriented to time, place, person, mood and affect Vital Signs Temp Pulse Resp BP Pulse Ox 98.3 F 88 16 152/75 H 93 05/12/18 16:13 05/12/18 16:13 05/12/18 16:13 05/12/18 16:13 05/12/18 16:13 Oxygen Delivery Method Room Air Weight: 88.1 kg Body Mass Index (BMI) 31.3 Finger Stick Blood Glucose 118 Laboratory Tests Past 24 Hrs 05/12/18 05/12/18 05/12/18 14:28 14:28 14:28 WBC 4.1 L RBC 2.97 L Hgb 9.1 L Hct 28.6 L MCV 96.3 MCH 30.6 MCHC 31.8 L RDW 16.2 H RDW Differential 57.1 H Plt Count 95 L MPV 8.1 Immature Gran % (Auto) 0.200 Neut % (Auto) 72.2 H Lymph % (Auto) 16.4 L [place] % (Auto) 6.8 Eos % (Auto) 4.4 Baso % (Auto) 0.0 Absolute Neuts (auto) 3.0 Absolute Lymphs (auto) 0.67 L Total Counted Not Reportable PT 14.2 INR 1.1 APTT 35.6 Sodium 137 Potassium 3.7 Chloride 98 Carbon Dioxide 32.0 Anion Gap 7 BUN 32 H Creatinine 4.96 H Estim Creat Clear Calc 13.55 Est GFR (MDRD) Af Amer 12 L Est GFR (MDRD) Non-Af 10 L BUN/Creatinine Ratio 6.5 L Glucose 248 H Calcium 7.4 L Troponin I 0.023 Assessment/Plan All Active Problems (Last Updated 02/27/18 @ 10:29 by Pricila Olson) Nausea & vomiting (Acute) Migraine (Acute) Metabolic encephalopathy (Acute) Abnormal electrocardiogram [ECG] [EKG] (Acute) Chest pain (Acute) Tooth abscess (Resolved) Intractable nausea and vomiting (Resolved) Pneumonia (Resolved) Pulmonary edema (Resolved) Hyperkalemia (Resolved) Atypical chest pain (Resolved) Acute hypoxic respiratory failure (Resolved) Pulmonary edema (Resolved) Clostridium difficile enterocolitis (Resolved) Necrotizing myositis (Resolved) Nonischemic cardiomyopathy (Resolved) S/P repair of PDA (patent ductus arteriosus) (Resolved) Dysmenorrhea (Resolved) Hx of necrotizing fascIItis (Resolved) Iron deficiency anemia due to chronic blood loss (Resolved) Systolic congestive heart failure (Resolved) #1 unstable angina-in a patient with known coronary artery disease-patient will be admitted to PCU, she will be maintained on a heparin drip, she will be seen in consultation by cardiology, cardiac enzymes will be cycled. Patient's Imdur will be increased to 120 mg daily, she was given an extra Imdur 60 mg now #2 end-stage renal disease-nephrology will see the patient in consultation #3 type 1 diabetes-patient's blood sugars will be monitored and she will be given insulin per protocol and her home insulin dosage #4 hypertension #5 nonischemic cardiomyopathy-most recent EF 45% on echocardiogram in March 2018 #6 hyperlipidemia Code Visit Inpatient E&M: 89303 Init Hosp L3
[2018-05-12] MEDS: Morphine 2 MG/ML Syringe IV (16:44)
[2018-05-12] MEDS: proMETHazine 25 MG Tablet PO (16:44)
[2018-05-12 16:56] LABS: Bedside Glucose 218 mg/dL (70-110)
[2018-05-12] MEDS: Insulin Lispro 100 UNIT/ML INSULN.PEN 10 UNIT SC (17:19)
[2018-05-12] MEDS: Calcium Acetate 667 MG Capsule 1334 MG PO (17:19)
[2018-05-12] MEDS: Isosorbide Mononitrate 60 MG Tablet PO (17:19)
[2018-05-12] MEDS: Sodium Bicarbonate 650 MG Tablet PO ×2 (17:19→21:51)
[2018-05-12] MEDS: Insulin Lispro 100 UNIT/ML INSULN.PEN SC (17:20)
[2018-05-12] MEDS: 0.9% NaCl Peripheral Flush Adult/Peds IV ×2 (17:22→19:43)
--- NOTE | 2018-05-12 17:43 | PCM.CONS.C ---
Problem List (1) Chest pain Status: Acute Qualifiers: Chest pain type: precordial pain Qualified Code(s): R07.2 - Precordial pain (2) Abnormal electrocardiogram [ECG] [EKG] Status: Acute (3) CAD (coronary artery disease) Status: Chronic Qualifiers: Coronary Disease-Associated Artery/Lesion type: [place] artery [place] vs. transplanted heart: [place] heart (4) Stented coronary artery Status: Chronic Comment: FFR of LAD 0.82; VIKY of mid LAD with 2.5 X 24 mm Promus Synergy, OM <50% stenosis per Dr. Magdaleno @ [facility] (5) S/P repair of PDA (patent ductus arteriosus) Status: Resolved Comment: At young age (6) Hyperlipidemia Status: Chronic Qualifiers: Hyperlipidemia type: unspecified Qualified Code(s): E78.5 - Hyperlipidemia, unspecified (7) HTN (hypertension) Status: Chronic Qualifiers: (8) Diabetes mellitus type 1 Status: Chronic Qualifiers: (9) ESRD (end stage renal disease) on dialysis Status: Chronic Reason for Consult Date of Consultation: 05/12/18 History of Present Illness: The patient is a 42 year old white female who is referred for evaluation of chest discomfort and an abnormal ECG superimposed upon a history of underlying CAD status post PCI, status post PDA closure, hyperlipidemia, hypertension, diabetes mellitus, and end-stage renal disease on chronic hemodialysis. The patient notes that recently she has been developing chest discomfort. She describes a variety of chest discomforts. Some of her discomforts are left-sided pressure sensation. Some of her discomforts or chest burning radiating into her neck. She has had associated shortness of breath/dyspnea. She states for 2 days she had nausea and emesis. She notes that her stools through her colostomy have been loose. She has not had near syncope or syncope although she states when she has her discomfort she sometimes feels as if she may lose consciousness. She also notes she recently had a fever. She states yesterday she believes her temperature was 101. Today at dialysis she states she was told she was afebrile. She has not missed dialysis. She states she was going through dialysis today and was within approximately 1 hour of finishing dialysis when she noted recurrent discomfort. She states her dialysis was terminated and she was subsequently referred to the [facility] emergency department for further evaluation and care. There she underwent evaluation with a troponin I level which was negative. She had an ECG which suggested sinus rhythm with voltage criteria for LVH and nonspecific T wave abnormality. This appeared to be somewhat different from an ECG from 04/17/2018 at which time the nonspecific T wave abnormality was not present. However, it appeared to be similar to an ECG from 03/17/2018 at which time the T wave abnormality was present. The patient has undergone recent cardiovascular evaluation. In October of this year she had a transthoracic echocardiogram. The results are as noted below. In February of this year she underwent diagnostic cardiac catheterization which subsequently led to LAD PTCA/VIKY with the results as noted below. In March of this year she underwent a dobutamine stress echocardiogram which was reported as being negative for ECG or echocardiographic criteria for myocardial ischemia. She does note that her symptoms are somewhat similar to symptoms she had before her PCI. [] Past Medical History Allergies/Adverse Reactions: Allergies latex Allergy (Verified 05/02/18 09:29) Rash levofloxacin [From Levaquin] Adverse Reaction (Verified 05/02/18 09:29) PT CAN'T REMEMBER PT CAN'T REMEMBER metoclopramide HCl [From Reglan] Adverse Reaction (Verified 05/02/18 09:29) Nausea NSAIDS (Non-Steroidal Anti-Inflamma Adverse Reaction (Verified 05/02/18 09:29) kidney function oxycodone HCl [From Percocet] Adverse Reaction (Verified 05/02/18 09:29) HALLUCINATIONS Home Medications: Ambulatory Orders Medication Instructions Recorded Aspirin [Aspirin, Baby] 81 mg PO DAILY@0800 01/26/16 Calcium Acetate [Phoslo Gel Cap] 1,334 mg PO TIDCM 01/26/16 Ergocalciferol [Vitamin D] 50,000 unit PO FR 01/26/16 Insulin Aspart [Novolog Flexpen] 10 units SC TIDCM 01/26/16 Insulin Glargine,Hum.rec.anlog 4 unit SQ QHS 01/09/17 [Lantus] proMETHazine tablet [Phenergan 25 mg PO Q6H PRN PRN #10 tab 03/06/17 tablet] Lisinopril 40 mg PO DAILY 03/29/17 Sodium Bicarbonate 650 mg PO 4X/DAY 03/29/17 Fluoxetine HCl 40 mg PO DAILY 09/02/17 ALPRAZolam [Xanax] 0.5 mg PO TUTHSA 11/21/17 Omeprazole Magnesium [Prilosec Otc] 20 mg PO DAILY 02/08/18 Clopidogrel Bisulfate [Plavix] 75 mg PO DAILY #90 tab 02/27/18 Isosorbide Mononitrate [Isosorbide 60 mg PO DAILY 02/28/18 Mononitrate ER] Ondansetron [Zofran Odt] 4 mg PO Q8H PRN PRN #10 tab 03/12/18 carvedilol 25 mg tablet 25 mg PO BID 03/14/18 Atorvastatin Calcium 20 mg PO QHS 03/17/18 Past Medical History (Chronic Problems): Chronic Problems (Last Updated 02/27/18 @ 10:29 by Pricila Olson) CAD (coronary artery disease) (Chronic) Stented coronary artery (Chronic 02/26/18) FFR of LAD 0.82; VIKY of mid LAD with 2.5 X 24 mm Promus Synergy, OM <50% stenosis per Dr. Magdaleno @ [facility] Atherosclerotic heart disease of [place] coronary artery without angina pectoris (Chronic) S/P PTCA/VIKY to mid LAD in February 2018 OM #1 noted to be 50%; ESRD (end stage renal disease) on dialysis (Chronic) Decubitus ulcer, stage III (Chronic) Anemia, chronic disease (Chronic) Pilonidal cyst with abscess (Chronic) GABRIEL (obstructive sleep apnea) (Chronic) Depression (Chronic) Anxiety (Chronic) HTN (hypertension) (Chronic) Diabetes mellitus type 1 (Chronic) Hyperlipidemia (Chronic) Obesity (BMI 30.0-34.9) (Chronic) Gastroparesis (Chronic) Surgical History: appendectomy, hysterectomy - and BSO, - - c-sections, L breast I+D for abscess, fistula placement LUE, L ankle surgery, appendectomy, PDA repair. Excision pilonidal cyst ulcer about 4 years ago. 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 Denies: Fatigue, Night Sweats Cardiovascular: Reports: Chest Discomfort, Chest Discomfort at Rest, Chest Discomfort with Exertion, Shortness of Breath, Shortness of Breath at Rest, Shortness of Breath with Exertion, Near Syncope. Denies: Orthopnea, PND, Peripheral Edema, Palpitations, Lightheadedness, Dizziness, Syncope Respiratory: Reports: Shortness of Breath. Denies: Cough, Sputum Production, Hemoptysis Gastrointestinal: Denies: Hematemesis, Hematochezia, Melena Genitourinary: Denies: Dysuria, Hematuria Skin: Denies: Rash Subjectve: This is a 42-year-old white female who appears to be resting reasonably comfortably at the moment in no acute distress. Objective: Vital Signs Temp Pulse Resp BP Pulse Ox 98.3 F 88 16 152/75 H 93 05/12/18 16:13 05/12/18 16:13 05/12/18 16:13 05/12/18 16:13 05/12/18 16:13 Oxygen Delivery Method Room Air Weight: 191 lb 9.307 oz Body Mass Index (BMI) 30.9 Finger Stick Blood Glucose 118 General: Awake, Alert, Oriented x 3, No Acute Distress HEENT: Atraumatic, Normocephalic, PERRL, EOMI, Sclera Non Icteric Oral: Moist Mucosa Neck: Supple, Good ROM, No JVD Lungs: Clear to auscultation Cardiovascular: Regular Rhythm, Normal S1, Normal S2 Abdomen: Bowel Sounds Present, Soft, Non Tender Extremities: No Cyanosis, No Clubbing, No edema Psych/Mental Status: Appropriate, Normal Affect 05/12/18 14:28: WBC 4.1 L, RBC 2.97 L, Hgb 9.1 L, Hct 28.6 L, MCV 96.3, MCH 30.6, MCHC 31.8 L, RDW 16.2 H, RDW Differential 57.1 H, Plt Count 95 L, MPV 8.1, Immature Gran % (Auto) 0.200, Neut % (Auto) 72.2 H, Lymph % (Auto) 16.4 L, [place] % (Auto) 6.8, Eos % (Auto) 4.4, Baso % (Auto) 0.0, Absolute Neuts (auto) 3.0, Total Counted Not Reportable 05/12/18 14:28: Sodium 137, Potassium 3.7, Chloride 98, Carbon Dioxide 32.0, Anion Gap 7, BUN 32 H, Creatinine 4.96 H, Est GFR (MDRD) Af Amer 12 L, Est GFR (MDRD) Non-Af 10 L, BUN/Creatinine Ratio 6.5 L, Glucose 248 H, Calcium 7.4 L, Troponin I 0.023 05/12/18 14:28: PT 14.2, INR 1.1, APTT 35.6 Rhythm: Sinus rhythm EKG: NSR; consider voltage criteria for LVH; nonspecific T wave abnormality ECHO: 11/15/2017: Left ventricle reported as dilated, mild to moderate global hypokinesis, LVEF 45%, mild concentric LVH, mild left atrial enlargement. Stress Test: 04/17/2018: Dobutamine stress echocardiogram: Reported negative for ischemia by EKG and echocardiographic criteria. Cardiac Cath: 02/26/2018: Left ventricle noted with an LVEF of 55%; left main coronary artery normal; LAD with mid 75% stenosis; LCx with OM1 with mild to moderate luminal irregularities up to 50% stenosis; RCA with mild calcification and right posterior lateral ventricular branch with mild luminal irregularities less than 30% PCI: 02/26/2018: LAD PTCA/VIKY with a Promus Synergy 2.5 x 24 mm stent CXR: Preliminary evaluation: no acute cardiopulmonary disease process: Please see official report Assessment/Plan 1. Chest pain The patient presents with chest discomfort. She states this is similar to discomfort she had prior to her PCI. She does have symptoms that are somewhat concerning for angina pectoris. Her evaluation thus far has demonstrated negative troponin I levels. Her ECG does demonstrate changes similar to changes she had in February prior to her PCI which subsequently appeared to be absent in March. At the present time she will continue to be followed. Her cardiac enzymes and ECGs will be followed. Depending upon her clinical course she may need reevaluation in the diagnostic cardiac catheterization laboratory. In the meantime she will continue medical management. Her nitrate dose is being increased. Additional medication that may be beneficial for her, depending upon her response, may include agents such as ranolazine/Ranexa. 2. Abnormal electrocardiogram She does have an abnormal ECG as previously described. Again there are changes similar to what she had prior to her February PCI. She will continue evaluation care as noted above with follow-up of her ECG. 3. CAD s/p PCI She does have a history of CAD status post PCI as previously described. She will continue to be monitored. Her cardiac enzymes will be followed. She will continue medical therapy. Again she may need repeat cardiac catheterization for further evaluation. 4. S/P repair of PDA He does have a history of a remote PDA repair. There is been no obvious reported objective findings raising concerns about this issue. 5. Hyperlipidemia The patient will continue risk factor modification and medical management as deemed appropriate. 6. Hypertension The patient's blood pressure will be followed. She will continue medical therapy. 7. Diabetes mellitus The patient will continue under the care of internal medicine. 8. ESRD on dialysis The patient has been evaluated by nephrology. She will continue dialysis under the direction of nephrology. If she does go for repeat diagnostic cardiac catheterization then dialysis will need to be coordinated with this procedure. Comment: The patient's case was discussed and reviewed with patient and Dr. Gamino. This note was generated with [employer] dictation software. It may contain incorrect words, spelling, and punctuation that were not noted in checking the note before signing.
--- NOTE | 2018-05-12 17:51 | CON.PCM_ITS ---
Problem List (1) Chest pain Status: Acute Qualifiers: Chest pain type: precordial pain Qualified Code(s): R07.2 - Precordial pain (2) Abnormal electrocardiogram [ECG] [EKG] Status: Acute (3) CAD (coronary artery disease) Status: Chronic Qualifiers: Coronary Disease-Associated Artery/Lesion type: [place] artery [place] vs. transplanted heart: [place] heart (4) Stented coronary artery Status: Chronic Comment: FFR of LAD 0.82; VIKY of mid LAD with 2.5 X 24 mm Promus Synergy, OM <50% stenosis per Dr. Magdaleno @ [facility] (5) S/P repair of PDA (patent ductus arteriosus) Status: Resolved Comment: At young age (6) Hyperlipidemia Status: Chronic Qualifiers: Hyperlipidemia type: unspecified Qualified Code(s): E78.5 - Hyperlipidemia, unspecified (7) HTN (hypertension) Status: Chronic Qualifiers: (8) Diabetes mellitus type 1 Status: Chronic Qualifiers: (9) ESRD (end stage renal disease) on dialysis Status: Chronic Reason for Consult Date of Consultation: 05/12/18 History of Present Illness: The patient is a 42 year old white female who is referred for evaluation of chest discomfort and an abnormal ECG superimposed upon a history of underlying CAD status post PCI, status post PDA closure, hyperlipidemia, hypertension, diabetes mellitus, and end-stage renal disease on chronic hemodialysis. The patient notes that recently she has been developing chest discomfort. She describes a variety of chest discomforts. Some of her discomforts are left- sided pressure sensation. Some of her discomforts or chest burning radiating into her neck. She has had associated shortness of breath/dyspnea. She states for 2 days she had nausea and emesis. She notes that her stools through her colostomy have been loose. She has not had near syncope or syncope although she states when she has her discomfort she sometimes feels as if she may lose consciousness. She also notes she recently had a fever. She states yesterday she believes her temperature was 101. Today at dialysis she states she was told she was afebrile. She has not missed dialysis. She states she was going through dialysis today and was within approximately 1 hour of finishing dialysis when she noted recurrent discomfort. She states her dialysis was terminated and she was subsequently referred to the [facility] emergency department for further evaluation and care. There she underwent evaluation with a troponin I level which was negative. She had an ECG which suggested sinus rhythm with voltage criteria for LVH and nonspecific T wave abnormality. This appeared to be somewhat different from an ECG from 04/17/2018 at which time the nonspecific T wave abnormality was not present. However, it appeared to be similar to an ECG from 03/17/2018 at which time the T wave abnormality was present. The patient has undergone recent cardiovascular evaluation. In October this y ear she had a transthoracic echocardiogram. The results are as noted below. In February of this year she underwent diagnostic cardiac catheterization which subsequently led to LAD PTCA/VIKY with the results as noted below. In March of this year she underwent a dobutamine stress echocardiogram which was reported as being negative for ECG or echocardiographic criteria for myocardial ischemia. She does note that her symptoms are somewhat similar to symptoms she had before her PCI. [] Past Medical History Allergies/Adverse Reactions: Allergies latex Allergy (Verified 05/02/18 09:29) Rash levofloxacin [From Levaquin] Adverse Reaction (Verified 05/02/18 09:29) PT CAN'T REMEMBER PT CAN'T REMEMBER metoclopramide HCl [From Reglan] Adverse Reaction (Verified 05/02/18 09:29) Nausea NSAIDS (Non-Steroidal Anti-Inflamma Adverse Reaction (Verified 05/02/18 09:29) kidney function oxycodone HCl [From Percocet] Adverse Reaction (Verified 05/02/18 09:29) HALLUCINATIONS Home Medications: Ambulatory Orders Medication Instructions Recorded Aspirin [Aspirin, Baby] 81 mg PO DAILY@0800 01/26/16 Calcium Acetate [Phoslo Gel Cap] 1,334 mg PO TIDCM 01/26/16 Ergocalciferol [Vitamin D] 50,000 unit PO FR 01/26/16 Insulin Aspart [Novolog Flexpen] 10 units SC TIDCM 01/26/16 Insulin Glargine,Hum.rec.anlog 4 unit SQ QHS 01/09/17 [Lantus] proMETHazine tablet [Phenergan 25 mg PO Q6H PRN PRN #10 tab 03/06/17 tablet] Lisinopril 40 mg PO DAILY 03/29/17 Sodium Bicarbonate 650 mg PO 4X/DAY 03/29/17 Fluoxetine HCl 40 mg PO DAILY 09/02/17 ALPRAZolam [Xanax] 0.5 mg PO TUTHSA 11/21/17 Omeprazole Magnesium [Prilosec Otc] 20 mg PO DAILY 02/08/18 Clopidogrel Bisulfate [Plavix] 75 mg PO DAILY #90 tab 02/27/18 Isosorbide Mononitrate [Isosorbide 60 mg PO DAILY 02/28/18 Mononitrate ER] Ondansetron [Zofran Odt] 4 mg PO Q8H PRN PRN #10 tab 03/12/18 carvedilol 25 mg tablet 25 mg PO BID 03/14/18 Atorvastatin Calcium 20 mg PO QHS 03/17/18 Past Medical History (Chronic Problems): Chronic Problems (Last Updated 02/27/18 @ 10:29 by Pricila Olson) CAD (coronary artery disease) (Chronic) Stented coronary artery (Chronic 02/26/18) FFR of LAD 0.82; VIKY of mid LAD with 2.5 X 24 mm Promus Synergy, OM <50% stenosis per Dr. Magdaleno @ [facility] Atherosclerotic heart disease of [place] coronary artery without angina pectoris (Chronic) S/P PTCA/VIKY to mid LAD in February 2018 OM #1 noted to be 50%; ESRD (end stage renal disease) on dialysis (Chronic) Decubitus ulcer, stage III (Chronic) Anemia, chronic disease (Chronic) Pilonidal cyst with abscess (Chronic) GABRIEL (obstructive sleep apnea) (Chronic) Depression (Chronic) Anxiety (Chronic) HTN (hypertension) (Chronic) Diabetes mellitus type 1 (Chronic) Hyperlipidemia (Chronic) Obesity (BMI 30.0-34.9) (Chronic) Gastroparesis (Chronic) Surgical History: appendectomy, hysterectomy - and BSO, - - c-sections, L breast I+D for abscess, fistula placement LUE, L ankle surgery, appendectomy, PDA repair. Excision pilonidal cyst ulcer about 4 years ago. 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 Denies: Fatigue, Night Sweats Cardiovascular: Reports: Chest Discomfort, Chest Discomfort at Rest, Chest Discomfort with Exertion, Shortness of Breath, Shortness of Breath at Rest, Shortness of Breath with Exertion, Near Syncope. Denies: Orthopnea, PND, Peripheral Edema, Palpitations, Lightheadedness, Dizziness, Syncope Respiratory: Reports: Shortness of Breath. Denies: Cough, Sputum Production, Hemoptysis Gastrointestinal: Denies: Hematemesis, Hematochezia, Melena Genitourinary: Denies: Dysuria, Hematuria Skin: Denies: Rash Subjectve: This is a 42-year-old white female who appears to be resting reasonably comfortably at the moment in no acute distress. Objective: Vital Signs Temp Pulse Resp BP Pulse Ox 98.3 F 88 16 152/75 H 93 05/12/18 16:13 05/12/18 16:13 05/12/18 16:13 05/12/18 16:13 05/12/18 16:13 Oxygen Delivery Method Room Air Weight: 191 lb 9.307 oz Body Mass Index (BMI) 30.9 Finger Stick Blood Glucose 118 General: Awake, Alert, Oriented x 3, No Acute Distress HEENT: Atraumatic, Normocephalic, PERRL, EOMI, Sclera Non Icteric Oral: Moist Mucosa Neck: Supple, Good ROM, No JVD Lungs: Clear to auscultation Cardiovascular: Regular Rhythm, Normal S1, Normal S2 Abdomen: Bowel Sounds Present, Soft, Non Tender Extremities: No Cyanosis, No Clubbing, No edema Psych/Mental Status: Appropriate, Normal Affect 05/12/18 14:28: WBC 4.1 L, RBC 2.97 L, Hgb 9.1 L, Hct 28.6 L, MCV 96.3, MCH 30.6, MCHC 31.8 L, RDW 16.2 H, RDW Differential 57.1 H, Plt Count 95 L, MPV 8.1, Immature Gran % (Auto) 0.200, Neut % (Auto) 72.2 H, Lymph % (Auto) 16.4 L, [place] % (Auto) 6.8, Eos % (Auto) 4.4, Baso % (Auto) 0.0, Absolute Neuts (auto) 3.0, Total Counted Not Reportable 05/12/18 14:28: Sodium 137, Potassium 3.7, Chloride 98, Carbon Dioxide 32.0, Anion Gap 7, BUN 32 H, Creatinine 4.96 H, Est GFR (MDRD) Af Amer 12 L, Est GFR (MDRD) Non-Af 10 L, BUN/Creatinine Ratio 6.5 L, Glucose 248 H, Calcium 7.4 L, Troponin I 0.023 05/12/18 14:28: PT 14.2, INR 1.1, APTT 35.6 Rhythm: Sinus rhythm EKG: NSR; consider voltage criteria for LVH; nonspecific T wave abnormality ECHO: 11/15/2017: Left ventricle reported as dilated, mild to moderate global hypokinesis, LVEF 45%, mild concentric LVH, mild left atrial enlargement. Stress Test: 04/17/2018: Dobutamine stress echocardiogram: Reported negative for ischemia by EKG and echocardiographic criteria. Cardiac Cath: 02/26/2018: Left ventricle noted with an LVEF of 55%; left main coronary artery normal; LAD with mid 75% stenosis; LCx with OM1 with mild to moderate luminal irregularities up to 50% stenosis; RCA with mild calcification and right posterior lateral ventricular branch with mild luminal irregularities less than 30% PCI: 02/26/2018: LAD PTCA/VIKY with a Promus Synergy 2.5 x 24 mm stent CXR: Preliminary evaluation: no acute cardiopulmonary disease process: Please see official report Assessment/Plan 1. Chest pain The patient presents with chest discomfort. She states this is similar to discomfort she had prior to her PCI. She does have symptoms that are somewhat concerning for angina pectoris. Her evaluation thus far has demonstrated negative troponin I levels. Her ECG does demonstrate changes similar to changes she had in February prior to her PCI which subsequently appeared to be absent in March. At the present time she will continue to be followed. Her cardiac enzymes and ECGs will be followed. Depending upon her clinical course she may need reevaluation in the diagnostic cardiac catheterization laboratory. In the meantime she will continue medical management. Her nitrate dose is being increased. Additional medication that may be beneficial for her, depending upon her response, may include agents such as ranolazine/Ranexa. 2. Abnormal electrocardiogram She does have an abnormal ECG as previously described. Again there are changes similar to what she had prior to her February PCI. She will continue evaluation care as noted above with follow-up of her ECG. 3. CAD s/p PCI She does have a history of CAD status post PCI as previously described. She will continue to be monitored. Her cardiac enzymes will be followed. She will continue medical therapy. Again she may need repeat cardiac catheterization for further evaluation. 4. S/P repair of PDA He does have a history of a remote PDA repair. There is been no obvious reported objective findings raising concerns about this issue. 5. Hyperlipidemia The patient will continue risk factor modification and medical management as deemed appropriate. 6. Hypertension The patient's blood pressure will be followed. She will continue medical therapy. 7. Diabetes mellitus The patient will continue under the care of internal medicine. 8. ESRD on dialysis The patient has been evaluated by nephrology. She will continue dialysis under the direction of nephrology. If she does go for repeat diagnostic cardiac catheterization then dialysis will need to be coordinated with this procedure. Comment: The patient's case was discussed and reviewed with patient and Dr. Gamino. This note was generated with [employer] dictation software. It may contain incorrect words, spelling, and punctuation that were not noted in checking the note before signing.
[2018-05-12] MEDS: Morphine 4 MG/ML Syringe IV (19:43)
[2018-05-12] MEDS: Atorvastatin Calcium 20 MG Tablet PO (21:51)
[2018-05-12] MEDS: Carvedilol 25 MG Tablet PO (21:51)
[2018-05-12 22:02] LABS: Partial Thromboplast Time 79.1 Seconds (24.1-36.2)
[2018-05-13] VITALS (10 sets, daily range): BP systolic 106–146; BP diastolic 52–79; PULSE 77–97; RESP 14–16; TEMP 36.6–36.8; O2SAT 95–98
[2018-05-13] MEDS: Morphine 4 MG/ML Syringe IV (00:03)
[2018-05-13] MEDS: proMETHazine 25 MG Tablet PO ×3 (00:03→16:55)
[2018-05-13] MEDS: 0.9% NaCl Peripheral Flush Adult/Peds IV ×7 (00:03→21:14)
[2018-05-13 00:21] LABS: Bedside Glucose 115 mg/dL (70-110)
[2018-05-13] MEDS: Morphine 2 MG/ML Syringe IV ×5 (03:53→21:13)
[2018-05-13 04:17] LABS: Partial Thromboplast Time 57.6 Seconds (24.1-36.2)
--- NOTE | 2018-05-13 05:55 | EKG12_ITS ---
Test Reason : AM EKG Blood Pressure : / mmHG Vent. Rate : 083 BPM Atrial Rate : 083 BPM P-R Int : 138 ms QRS Dur : 092 ms QT Int : 410 ms P-R-T Axes : 046 053 191 degrees QTc Int : 481 ms Normal sinus rhythm Moderate voltage criteria for LVH, may be normal variant Nonspecific T wave abnormality Prolonged QT Abnormal ECG Confirmed by CHEPE BEASLEY, KAITLYNN ([id number]), content editor SHANIA SOLITARIO ([id number] on 05/16/2018 1:48:37 PM Referred By: JOSE Confirmed By:KAITLYNN MO MD
[2018-05-13 06:55] LABS: Bedside Glucose 146 mg/dL (70-110)
[2018-05-13 06:55] LABS: Bedside Glucose 134 mg/dL (70-110)
[2018-05-13] MEDS: Aspirin 81 MG TAB.CHEW PO (07:39)
[2018-05-13] MEDS: Calcium Acetate 667 MG Capsule 1334 MG PO ×3 (07:39→16:55)
[2018-05-13] MEDS: Insulin Lispro 100 UNIT/ML INSULN.PEN 10 UNIT SC ×3 (07:40→16:55)
[2018-05-13 09:26] LABS: Partial Thromboplast Time 49.9 Seconds (24.1-36.2)
[2018-05-13] MEDS: Heparin Injection (Vial) 5,000 UNIT/ML VIAL IV ×2 (09:40→23:02)
[2018-05-13] MEDS: Carvedilol 25 MG Tablet PO ×2 (09:42→21:02)
[2018-05-13] MEDS: FLUoxetine 20 MG Capsule 40 MG PO (09:43)
[2018-05-13] MEDS: Lisinopril 40 MG Tablet PO (09:43)
[2018-05-13] MEDS: Pantoprazole Sodium 20 MG Tablet PO (09:43)
[2018-05-13] MEDS: Clopidogrel Bisulfate 75 MG Tablet PO (09:43)
[2018-05-13] MEDS: Sodium Bicarbonate 650 MG Tablet PO ×4 (09:43→21:03)
[2018-05-13] MEDS: Acetaminophen 325 MG Tablet 650 MG PO (09:43)
[2018-05-13 11:21] LABS: Bedside Glucose 92 mg/dL (70-110)
--- NOTE | 2018-05-13 11:58 | PN.CARD_ITS ---
Subjectve: The patient states she has had intermittent waxing and waning chest pain. Overall, she feels better than on admission. She denies any worsening shortness of breath. Objective: Vital Signs Temp Pulse Resp BP Pulse Ox 98.1 F 78 16 130/65 H 98 05/13/18 09:40 05/13/18 11:01 05/13/18 09:40 05/13/18 09:40 05/13/18 09:40 Oxygen Flow Rate (L/min) 2 Oxygen Delivery Method Nasal Cannula Weight: 193 lb 5.526 oz Body Mass Index (BMI) 30.9 Finger Stick Blood Glucose 118 Intake and Output for Last 24 Hours 05/11/18 05/12/18 05/13/18 23:59 23:59 23:59 Intake Total 338.7 / 338.7 64.8 / 64.8 Balance 338.7 / 338.7 64.8 / 64.8 General: Awake, Alert, Oriented x 3, Cooperative, No Acute Distress HEENT: Atraumatic, Normocephalic, PERRL, EOMI, Sclera Non Icteric Oral: Moist Mucosa Neck: Supple, Good ROM, No JVD Lungs: Clear to auscultation Cardiovascular: Regular Rhythm, Normal S1, Normal S2 Abdomen: Bowel Sounds Present, Soft, Non Tender Extremities: No edema Neurological: No Focal Motor or Sensory Deficit Psych/Mental Status: Appropriate, Normal Affect 05/12/18 14:28: WBC 4.1 L, RBC 2.97 L, Hgb 9.1 L, Hct 28.6 L, MCV 96.3, MCH 30.6, MCHC 31.8 L, RDW 16.2 H, RDW Differential 57.1 H, Plt Count 95 L, MPV 8.1, Immature Gran % (Auto) 0.200, Neut % (Auto) 72.2 H, Lymph % (Auto) 16.4 L, [place] % (Auto) 6.8, Eos % (Auto) 4.4, Baso % (Auto) 0.0, Absolute Neuts (auto) 3.0, Total Counted Not Reportable 05/12/18 14:28: Sodium 137, Potassium 3.7, Chloride 98, Carbon Dioxide 32.0, Anion Gap 7, BUN 32 H, Creatinine 4.96 H, Est GFR (MDRD) Af Amer 12 L, Est GFR (MDRD) Non-Af 10 L, BUN/Creatinine Ratio 6.5 L, Glucose 248 H, Calcium 7.4 L, Troponin I 0.023 05/12/18 14:28: PT 14.2, INR 1.1, APTT 35.6 05/12/18 17:34: Troponin I 0.022 05/12/18 21:37: Troponin I 0.027 05/12/18 21:37: APTT 79.1 H 05/13/18 03:50: APTT 57.6 H 05/13/18 09:10: APTT 49.9 H Rhythm: sinus rhythm EKG: sinus rhythm; consideration for voltage criteria for LVH; nonspecific T wave abnormality Medical Necessity - Tobacco Use Smoking Status: Former smoker Tobacco Use: Non-smoker Assessment/Plan 1. Chest pain The patient presents with chest discomfort. She states this is similar to discomfort she had prior to her PCI. She does have symptoms that are somewhat concerning for angina pectoris. Her evaluation thus far has demonstrated negative troponin I levels. Her ECG does demonstrate changes similar to changes she had in February prior to her PCI which subsequently appeared to be absent in March. At the present time she will continue to be followed. Her cardiac enzymes remain negative. In the meantime she will continue medical management. Her nitrate dose has being increased. 2. Abnormal electrocardiogram She does have an abnormal ECG as previously described. Again there are changes similar to what she had prior to her February PCI. She will continue evaluation care as noted above with follow-up of her ECG. 3. CAD s/p PCI She does have a history of CAD status post PCI as previously described. She will continue to be monitored. Her cardiac enzymes will be followed. She will continue medical therapy. Again she will be scheduled for repeat cardiac catheterization for further evaluation. 4. S/P repair of PDA He does have a history of a remote PDA repair. There is been no obvious reported objective findings raising concerns about this issue. 5. Hyperlipidemia The patient will continue risk factor modification and medical management as deemed appropriate. 6. Hypertension The patient's blood pressure will be followed. She will continue medical therapy. 7. Diabetes mellitus The patient will continue under the care of internal medicine. 8. ESRD on dialysis The patient has been evaluated by nephrology. She will continue dialysis under the direction of nephrology. Comment: The patient's case was discussed and reviewed with patient and Dr. Gamino. This note was generated with [employer] software. It may contain incorrect words, spelling, and punctuation that were not noted in checking the note before signing.
[2018-05-13] MEDS: HEPARIN/D5w 25,000 UNITS 25,000 UNITS/250 ML IV.SOLN. 13 UNITS IV (12:12)
[2018-05-13 16:36] LABS: Bedside Glucose 110 mg/dL (70-110)
--- NOTE | 2018-05-13 19:10 | PCM.PROGNOTE ---
Subjective: Patient was seen and examined today, patient's cardiac enzymes were all negative, patient admits to brief episodes of chest pain since she has been in the hospital. These episodes do not last long - Physical Exam General: Alert, Oriented x3, Cooperative, No apparent distress, Well developed HEENT: Atraumatic, PERRLA, EOMI, Normocephalic Oral: Moist Mucosa Neck: Supple, No Nuchal Rigidity, Trachea Midline, Thyroid Normal Size and Texture Lungs: Clear to auscultation, Normal air movement, No rhonchi, No wheeze Cardiovascular: Regular rate, Regular Rhythm, Normal S1, Normal S2, No murmurs, No Ectopic Activity Abdomen: Bowel Sounds Present, Soft, Non Tender, Non-Distended Extremities: No edema, Capillary Refill Less than 3 Seconds Skin: No rashes, No breakdown Neurological: Cranial nerves II-XII grossly intact, Neuro grossly intact, Muscle tone normal, Sensory exam intact to light touch and pain Psych/Mental Status: Normal Affect, Appropriate, Alert and oriented to time, place, person, mood and affect Vital Signs Temp Pulse Resp BP Pulse Ox 97.9 F 77 16 106/52 L 95 05/13/18 15:40 05/13/18 15:40 05/13/18 15:40 05/13/18 15:40 05/13/18 15:40 Oxygen Flow Rate (L/min) 2 Oxygen Delivery Method Room Air Weight: 87.7 kg Body Mass Index (BMI) 30.9 Finger Stick Blood Glucose 118 Intake and Output for Last 24 Hours 05/11/18 05/12/18 05/13/18 23:59 23:59 23:59 Intake Total 338.7 / 338.7 682.4 / 682.4 Balance 338.7 / 338.7 682.4 / 682.4 Laboratory Tests Past 24 Hrs 05/12/18 05/12/18 05/13/18 21:37 21:37 03:50 APTT 79.1 H 57.6 H Troponin I 0.027 05/13/18 05/13/18 09:10 15:50 APTT 49.9 H 55.0 H Troponin I POC Glucose 05/13/18 05/13/18 05/13/18 16:33 11:18 06:52 POC Glucose 110 92 134 H 05/13/18 05/12/18 03:25 21:43 POC Glucose 146 H 115 H Medical Necessity - Tobacco Use Smoking Status: Former smoker Tobacco Use: Non-smoker Assessment/Plan All Active Problems (Last Updated 02/27/18 @ 10:29 by Pricila Olson) Nausea & vomiting (Acute) Migraine (Acute) Metabolic encephalopathy (Acute) Abnormal electrocardiogram [ECG] [EKG] (Acute) Chest pain (Acute) Tooth abscess (Resolved) Intractable nausea and vomiting (Resolved) Pneumonia (Resolved) Pulmonary edema (Resolved) Hyperkalemia (Resolved) Atypical chest pain (Resolved) Acute hypoxic respiratory failure (Resolved) Pulmonary edema (Resolved) Clostridium difficile enterocolitis (Resolved) Necrotizing myositis (Resolved) Nonischemic cardiomyopathy (Resolved) S/P repair of PDA (patent ductus arteriosus) (Resolved) Dysmenorrhea (Resolved) Hx of necrotizing fascIItis (Resolved) Iron deficiency anemia due to chronic blood loss (Resolved) Systolic congestive heart failure (Resolved) #1 unstable angina-in a patient with known coronary artery disease-continue present medications, patient's chest pain is somewhat atypical for angina #2 end-stage renal disease-patient's next dialysis day is Monday, nephrology is participating in her care #3 type 1 diabetes-patient's blood sugars will be monitored and she will be given insulin per protocol and her home insulin dosage #4 hypertension #5 nonischemic cardiomyopathy-most recent EF 45% on echocardiogram in March 2018 #6 hyperlipidemia Code Visit Inpatient E&M: 01248 Subs Hosp L2
--- NOTE | 2018-05-13 20:30 | NURSING ---
Called to pt. room by pt. Pt. bleeding from bilateral groin areas due to pt. scratching area. Minimal blood coming from colostomy. Pt. instructed not to scratch. Pt. sat in chair for while. Reassessed groin and coccyx and buttocks, no further bleeding noted. Scant amount of blood in colostomy bag. Will monitor.
[2018-05-13 20:59] LABS: Mucous, Urine 0 SEEN /hpf (<or=2+); Red Blood Cells-Urine 0 SEEN /hpf (0-5)
[2018-05-13 21:01] LABS: Color, Urine Yellow (Yellow); Glucose, Dipstick 50 mg/dl (Normal); Ketone-Dipstick Negative (Negative); Leukocyte Esterase-Dipstick 25 /ul (Negative); Nitrite-Dipstick Negative (Negative); Occult Blood-Urine 25 /ul (Negative); Protein-Dipstick 500 mg/dl (Negative); Specific Gravity, Urine 1.015 (1.002-1.030); Urine Bilirubin Dipstick Negative (Negative); Urine Clarity Clear (Clear); Urine Urobilinogen Normal (Normal)
[2018-05-13] MEDS: Atorvastatin Calcium 20 MG Tablet PO (21:04)
[2018-05-13 21:07] LABS: Bacteria RARE /hpf (None Seen); Squamous Epithelial Cells - UA 5-10 SEEN /hpf (5-10); White Blood Cells 0-5 SEEN /hpf (0-5)
--- NOTE | 2018-05-13 21:38 | NURSING ---
Handing over care of this patient at this time to Thu ALLEN V[facility].
[2018-05-13 22:35] LABS: Bedside Glucose 116 mg/dL (70-110)
[2018-05-13 22:46] LABS: Partial Thromboplast Time 40.2 Seconds (24.1-36.2)
[2018-05-14] VITALS (13 sets, daily range): BP systolic 110–149; BP diastolic 51–73; PULSE 79–91; RESP 14–18; TEMP 36.8–37.3; O2SAT 94–100
[2018-05-14] MEDS: Morphine 4 MG/ML Syringe IV (01:39)
[2018-05-14] MEDS: 0.9% NaCl Peripheral Flush Adult/Peds IV ×2 (01:39→05:52)
[2018-05-14 03:46] LABS: Internal QC Validated? YES +Cl - CLEAR BKGD; Pregnancy, Urine Negative Negative
--- NOTE | 2018-05-14 05:00 | EKG12_ITS ---
Test Reason : AM EKG Blood Pressure : / mmHG Vent. Rate : 088 BPM Atrial Rate : 088 BPM P-R Int : 132 ms QRS Dur : 090 ms QT Int : 384 ms P-R-T Axes : 047 054 173 degrees QTc Int : 464 ms Normal sinus rhythm Minimal voltage criteria for LVH, may be normal variant Nonspecific T wave abnormality Prolonged QT Abnormal ECG Confirmed by CHEPE BEASLEY, KAITLYNN ([id number]), proposal editor SHANIA SOLITARIO ([id number]) on 05/16/2018 1:45:19 PM Referred By: JOSE Confirmed By:KAITLYNN MO MD
[2018-05-14 05:27] LABS: Hematocrit 28.2 % (37-47); Hemoglobin 8.6 g/dl (12.0-15.0); Mean Corp Hgb Conc 30.5 g/gl (32-36); Mean Corpuscular Hgb 30.3 pg (27.0-32.0); Mean Corpuscular Volume 99.3 fL (81-99); Mean Platelet Vol. 8.9 fl (6.2-12.0); Platelet Count 118 K/mm3 (150-450); RBC Distribution Width CV 15.6 % (11.6-14.6); RBC Distribution Width SD 53.5 fl (35.1-43.9); Red Blood Count 2.84 M/mm3 (4.2-5.4); White Blood Count 5.8 K/mm3 (4.4-11.0)
[2018-05-14 05:30] LABS: Scan Indicated on CBC? Y/N NO
[2018-05-14 05:33] LABS: International Normalized Ratio 1.1; Prothrombin Time (Protime)PT. 14.6 SECONDS (11.7-14.9)
[2018-05-14 05:34] LABS: Partial Thromboplast Time 31.4 Seconds (24.1-36.2)
[2018-05-14] MEDS: Lisinopril 40 MG Tablet PO (05:53)
[2018-05-14] MEDS: Clopidogrel Bisulfate 75 MG Tablet PO (05:53)
[2018-05-14] MEDS: Aspirin 81 MG TAB.CHEW PO (05:53)
[2018-05-14] MEDS: Morphine 2 MG/ML Syringe IV ×2 (05:53→10:09)
[2018-05-14] MEDS: Carvedilol 25 MG Tablet PO ×2 (05:54→21:25)
[2018-05-14 06:00] LABS: Anion Gap 11 (5-15); BUN 53 mg/dL (7-18); BUN/Creat Ratio 6.6 RATIO (10-20); Calcium,Total 7.9 mg/dL (8.5-10.1); Chloride 100 mmol/L (98-107); Creatinine, Serum 7.97 mg/dL (0.55-1.02); EST Glomerular Filtration Rate 6 mL/min (>60); Est Glom Filt Rate - Afr Amer 7 mL/min (>60); Estimated Creatinine Clearance 8.43 ml/min; Glucose 133 mg/dL (74-106); Potassium 5.2 mmol/L (3.5-5.1); Sodium Level 136 mmol/L (136-145)
[2018-05-14 06:56] LABS: Bedside Glucose 153 mg/dL (70-110)
[2018-05-14] MEDS: Pantoprazole Sodium 20 MG Tablet PO ×2 (09:37→21:25)
[2018-05-14] MEDS: Sodium Bicarbonate 650 MG Tablet PO ×4 (09:37→21:25)
[2018-05-14] MEDS: FLUoxetine 20 MG Capsule 40 MG PO (09:38)
[2018-05-14] MEDS: Calcium Acetate 667 MG Capsule 1334 MG PO ×3 (09:39→17:29)
--- NOTE | 2018-05-14 09:46 | PCM.PN.CARD ---
Subjectve: Patient doing well this morning, admits to burning-like chest pain consistent with her previous GERD, and totally dissimilar from her previous anginal symptoms. Patient has been under a significant amount of psychosocial stress with both her parents and her family. Patient also drinks a copious amount of caffeine in the form of tea about 3 cups/day, and has noted improvement of her symptoms with Tums. Patient has not tried PPI therapy although this did work in the past. Objective: Vital Signs Temp Pulse Resp BP Pulse Ox 98.5 F 81 18 114/55 L 98 05/14/18 08:15 05/14/18 08:15 05/14/18 08:15 05/14/18 08:15 05/14/18 08:15 Oxygen Flow Rate (L/min) 3 Oxygen Delivery Method Nasal Cannula Weight: 196 lb 6.91 oz Body Mass Index (BMI) 30.9 Finger Stick Blood Glucose 118 Intake and Output for Last 24 Hours 05/12/18 05/13/18 05/14/18 23:59 23:59 23:59 Intake Total 338.7 / 338.7 1012.4 / 1012.4 7.3 / 7.3 Balance 338.7 / 338.7 1012.4 / 1012.4 7.3 / 7.3 General: Awake, Alert, Oriented x 3 HEENT: PERRL, EOMI, Sclera Non Icteric Neck: Supple, Good ROM, No Lymph Node Enlargement Lungs: Clear to auscultation Cardiovascular: Regular Rhythm, Normal S1, Normal S2, No Murmurs, No Rubs, No Gallops Vascular: No Carotid Bruits, Normal Femoral Pulses, Normal Radial Pulses, Normal Dorsalis Pedal Pulse, Normal Posterior Tibial Pulses Abdomen: Bowel Sounds Present, Soft, Non Tender, No HSM, No Organomegaly Extremities: No Cyanosis, No Clubbing, No edema Neurological: No Focal Motor or Sensory Deficit 05/13/18 15:50: APTT 55.0 H 05/13/18 20:45: Urine Color Yellow, Urine Clarity Clear, Urine pH 8.0, Ur Specific [place] 1.015, Urine Protein 500 H, Urine Glucose (UA) 50 H, Urine Ketones Negative, Urine Occult Blood 25 H, Urine Nitrite Negative, Urine Bilirubin Negative, Urine Urobilinogen Normal, Ur Leukocyte Esterase 25 H, Urine RBC 0 SEEN, Urine WBC 0-5 SEEN 05/13/18 22:05: APTT 40.2 H 05/14/18 05:05: WBC 5.8, RBC 2.84 L, Hgb 8.6 L, Hct 28.2 L, MCV 99.3 H, MCH 30.3, MCHC 30.5 L, RDW 15.6 H, RDW Differential 53.5 H, Plt Count 118 L, MPV 8.9 05/14/18 05:05: PT 14.6, INR 1.1, APTT 31.4 05/14/18 05:05: Sodium 136, Potassium 5.2 H, Chloride 100, Carbon Dioxide 25.0, Anion Gap 11, BUN 53 H, Creatinine 7.97 H*, Est GFR (MDRD) Af Amer 7 L, Est GFR (MDRD) Non-Af 6 L, BUN/Creatinine Ratio 6.6 L, Glucose 133 H, Calcium 7.9 L Rhythm: EKG: ECHO: Stress Test: Cardiac Cath: PCI: CT Surgery: Holter monitor: EPS: PPM: CXR: Chest CT Scan: Medical Necessity - Tobacco Use Smoking Status: Former smoker Tobacco Use: Non-smoker Assessment/Plan 1. Coronary artery disease: The patient presents with atypical non-exertional GERD-like chest pain, admitted openly by the patient, relieved with Tums, and dissimilar from her previous angina prior to her angioplasty in February 2018. Patient underwent a dobutamine echocardiogram in March 2018 which was negative for inducible ischemia, but did have a hypertensive blood pressure response to dobutamine. Patient also has a history of microvascular coronary artery disease and gets chest pain with significant hypertension. I believe the patient has 2 things going on the primary of which is probably reflux similar to her previous reflux symptoms. I recommend discontinuation of Tums or antacids which can exacerbate gastric distention and worsen GERD symptoms. I recommended she started on PPI therapy on a daily basis going forward. I also advised the patient discontinue all caffeinated as well as alcohol products should she be in consuming any of those. In addition I recommend continuing her aspirin, Plavix, Imdur for hypertension. Her last debridement echocardiogram less than 1 month ago was negative for inducible ischemia. I reviewed her catheterization films and she had an excellent outcome of her LAD stent, and her left circumflex vessels are too small for stenting. Would not recommend repeat catheterization at this time. If the patient's symptoms lilly with PPI therapy, which may require several days, I would recommend continuing medical management as outlined above. If however she develops exertional symptoms or chest pain during dialysis, she may require repeat catheterization. Would recommend she stay 1 more day to ensure that her chest pain symptoms have abated with PPI therapy. 2. Hyperlipidemia: Continue Lipitor therapy. 3. Thank you very much for the opportunity to participate in the cardiac care of your patient. Code Visit Inpatient E&M: 61864 Subs Hosp L2
[2018-05-14] MEDS: Insulin Lispro 100 UNIT/ML INSULN.PEN SC ×2 (10:15→21:26)
[2018-05-14 10:26] LABS: Bedside Glucose 174 mg/dL (70-110)
--- NOTE | 2018-05-14 12:07 | PCM.PN.REN ---
Subjective: Doing okay. still has chest pain. Dr Magdaleno thinks it is GERD - Physical Exam General: Alert, Oriented x3 HEENT: Atraumatic Oral: Moist Mucosa Neck: Supple, No JVD Lungs: Clear to auscultation, Normal air movement, No rhonchi Cardiovascular: Regular rate, Regular Rhythm, Normal S1, Normal S2 Abdomen: Bowel Sounds Present, Soft, Non Tender Extremities: No clubbing, No cyanosis, No edema Skin: No rashes Musculoskeletal: No Tenderness to Palpation of Joints or Extremities Lymphatic: No Cervical, Supraclavicular, or Inguinal Adenopathy Neurological: Cranial nerves II-XII grossly intact, Neuro grossly intact Psych/Mental Status: Normal Affect Comment: HD access is LUE AVF + Thrill and + Bruit Vital Signs Temp Pulse Resp BP Pulse Ox 98.5 F 85 18 114/55 L 98 05/14/18 08:15 05/14/18 11:08 05/14/18 08:15 05/14/18 08:15 05/14/18 08:15 Oxygen Flow Rate (L/min) 3 Oxygen Delivery Method Nasal Cannula Weight: 89.1 kg Body Mass Index (BMI) 30.9 Finger Stick Blood Glucose 118 Intake and Output for Last 24 Hours 05/12/18 05/13/18 05/14/18 23:59 23:59 23:59 Intake Total 338.7 / 338.7 1012.4 / 1012.4 7.3 / 7.3 Balance 338.7 / 338.7 1012.4 / 1012.4 7.3 / 7.3 Laboratory Tests Past 24 Hrs 05/13/18 05/13/18 05/13/18 15:50 20:45 20:45 WBC RBC Hgb Hct MCV MCH MCHC RDW RDW Differential Plt Count MPV PT INR APTT 55.0 H Sodium Potassium Chloride Carbon Dioxide Anion Gap BUN Creatinine Estim Creat Clear Calc Est GFR (MDRD) Af Amer Est GFR (MDRD) Non-Af BUN/Creatinine Ratio Glucose Calcium Urine Color Yellow Urine Clarity Clear Urine pH 8.0 Ur Specific [place] 1.015 Urine Protein 500 H Urine Glucose (UA) 50 H Urine Ketones Negative Urine Occult Blood 25 H Urine Nitrite Negative Urine Bilirubin Negative Urine Urobilinogen Normal Ur Leukocyte Esterase 25 H Urine RBC 0 SEEN Urine WBC 0-5 SEEN Ur Squamous Epith Cells 5-10 SEEN Urine Bacteria RARE Urine Mucus 0 SEEN Urine Test Negative 05/13/18 05/14/18 05/14/18 22:05 05:05 05:05 WBC 5.8 RBC 2.84 L Hgb 8.6 L Hct 28.2 L MCV 99.3 H MCH 30.3 MCHC 30.5 L RDW 15.6 H RDW Differential 53.5 H Plt Count 118 L MPV 8.9 PT 14.6 INR 1.1 APTT 40.2 H 31.4 Sodium Potassium Chloride Carbon Dioxide Anion Gap BUN Creatinine Estim Creat Clear Calc Est GFR (MDRD) Af Amer Est GFR (MDRD) Non-Af BUN/Creatinine Ratio Glucose Calcium Urine Color Urine Clarity Urine pH Ur Specific [place] Urine Protein Urine Glucose (UA) Urine Ketones Urine Occult Blood Urine Nitrite Urine Bilirubin Urine Urobilinogen Ur Leukocyte Esterase Urine RBC Urine WBC Ur Squamous Epith Cells Urine Bacteria Urine Mucus Urine Test 05/14/18 05:05 WBC RBC Hgb Hct MCV MCH MCHC RDW RDW Differential Plt Count MPV PT INR APTT Sodium 136 Potassium 5.2 H Chloride 100 Carbon Dioxide 25.0 Anion Gap 11 BUN 53 H Creatinine 7.97 H* Estim Creat Clear Calc 8.43 Est GFR (MDRD) Af Amer 7 L Est GFR (MDRD) Non-Af 6 L BUN/Creatinine Ratio 6.6 L Glucose 133 H Calcium 7.9 L Urine Color Urine Clarity Urine pH Ur Specific [place] Urine Protein Urine Glucose (UA) Urine Ketones Urine Occult Blood Urine Nitrite Urine Bilirubin Urine Urobilinogen Ur Leukocyte Esterase Urine RBC Urine WBC Ur Squamous Epith Cells Urine Bacteria Urine Mucus Urine Test POC Glucose 05/14/18 05/14/18 05/13/18 10:14 06:52 21:00 POC Glucose 174 H 153 H 116 H 05/13/18 16:33 POC Glucose 110 Medical Necessity - Tobacco Use Smoking Status: Former smoker Tobacco Use: Non-smoker Assessment/Plan All Active Problems (Last Updated 02/27/18 @ 10:29 by Pricila Olson) Nausea & vomiting (Acute) Migraine (Acute) Metabolic encephalopathy (Acute) Abnormal electrocardiogram [ECG] [EKG] (Acute) Chest pain (Acute) Tooth abscess (Resolved) Intractable nausea and vomiting (Resolved) Pneumonia (Resolved) Pulmonary edema (Resolved) Hyperkalemia (Resolved) Atypical chest pain (Resolved) Acute hypoxic respiratory failure (Resolved) Pulmonary edema (Resolved) Clostridium difficile enterocolitis (Resolved) Necrotizing myositis (Resolved) Nonischemic cardiomyopathy (Resolved) S/P repair of PDA (patent ductus arteriosus) (Resolved) Dysmenorrhea (Resolved) Hx of necrotizing fascIItis (Resolved) Iron deficiency anemia due to chronic blood loss (Resolved) Systolic congestive heart failure (Resolved) 1- ESRD . Pt is on TTS schedule of HD. Last HD session 05/12. Pt goes to [facility] HD unit and Dr. Martinez is the car greaser No need of HD session Nex session will be tomorrow 05/15 HD access is LUE AVF 2- Anemia: Hgb < 9.0. Will continue ESTUARDO with HD sessions as per the patient's chronic order 3-BMD: continue Ca acetate with HD session to keep P < 5.0 4- Chest Pain. [employer] thinks it is related to GERD. On PPI now Renal team will continue to follow NAWAF VILLAFUERTE MD
--- NOTE | 2018-05-14 12:14 | CASEMGMT ---
MALLORY SCHUMACHER INITIAL REVIEW ASSESSMENT D/C PLAN: Home Re-admit note: Admitted 04/17/18 for CP. Underwent Stress Echo, which was negative. Discharged home. Re-admit 05/12/18 for c/o CP while @ Dialysis Center. Face to Face with patient for initial transition planning/care coordination assessment. Pt resting in bed. RN WINSOME introduced self and role at [facility]. Awake/alert/oriented. Willing to participate in assessment and all questions answered appropriately. Care providers, pharmacy, and demographics verified. PCP: Dr Foy Specialists: [place]: Cardiology Dr Martinez: Nephrology. Dialysis Tues, Thurs, Sat. Chair time: 11:20. Dr Munroe: W[facility] Care @ [facility] Preferred Pharmacy: [facility], [facility] on discharge day only. Insurance: MCR A & B, Medicaid Prescription Benefit: Medicaid Living Will/HPOA: has both LW and HPOA, who is her mother, Courtney. Copies not found on e-chart. Asked if pt could have copies of both brought in to hospital so they can be scanned in medical records. LNOK: Parents Living Arrangements: Lives with her boyfriend, Mark, and her 9-yr-old daughter. Has 1 step to enter. Lives in one-story apt. Pt able to perform all personal ADL's, colostomy care, chores, meals, medication management, and finances/bills. Transportation: Pt states drives self and states no transportation concerns at this time. DME: Pt states has oxygen set up through [employer]. Wears O2 @ 2-3 L/M @ HS only. Has a concentrator. Pt states gets colostomy supplies through [employer]. She is aware they are closing this week. States she lost the contact information for other medical supply companies that she was provided last information. Contact information for [employer] and [employer] [facility] [employer] were provided again. Pt states uses no other DME and denies needs. HHC/SNF: Has used [facility]HC in the past. Has been to [facility] @ [facility], [facility], and [facility] Denies wanting/needing HHC or SNF. Pt's plans on D/C: Wishes to return home. Pt states no concerns with going home at time of discharge. CM to follow for any further discharge planning needs that may arise. Annika JOVEL RN, CM
[2018-05-14] MEDS: Insulin Lispro 100 UNIT/ML INSULN.PEN 10 UNIT SC (12:35)
[2018-05-14 12:46] LABS: Bedside Glucose 133 mg/dL (70-110)
[2018-05-14] MEDS: HYDROcodone Bitartrate/Apap 5/325 Tablet PO (17:29)
[2018-05-14 17:41] LABS: Bedside Glucose 128 mg/dL (70-110)
--- NOTE | 2018-05-14 18:45 | PN_ITS ---
Subjective: Patient was seen and examined today, nursing reports that the patient told them she had some blood in her ostomy bag, I will repeat an H&H tomorrow, if this continues she may have to be seen by general surgery. I also talked at length with cardiology today, they were under the impression the patient was not taking omeprazole at home but she actually was according to her. Cardiology requested that I increase her PPI to twice a day. As of now, cardiology does not feel she needs a cardiac catheterization. - Physical Exam General: Alert, Oriented x3, Cooperative, No apparent distress, Well developed HEENT: Atraumatic, PERRLA, EOMI, Normocephalic Oral: Moist Mucosa Neck: Supple, No Nuchal Rigidity, Trachea Midline, Thyroid Normal Size and Texture Lungs: Clear to auscultation, Normal air movement, No rhonchi, No wheeze, No rales Cardiovascular: Regular rate, Regular Rhythm, Normal S1, Normal S2, No murmurs, No Ectopic Activity Abdomen: Bowel Sounds Present, Soft, Non Tender Extremities: No edema, Capillary Refill Less than 3 Seconds Skin: No rashes, No breakdown Neurological: Cranial nerves II-XII grossly intact, Neuro grossly intact, Sensory exam intact to light touch and pain, Coordination normal Psych/Mental Status: Normal Affect, Appropriate, Alert and oriented to time, place, person, mood and affect Vital Signs Temp Pulse Resp BP Pulse Ox 99.1 F 88 18 142/64 H 100 05/14/18 17:36 05/14/18 17:36 05/14/18 17:36 05/14/18 17:36 05/14/18 17:36 Oxygen Flow Rate (L/min) 3 Oxygen Delivery Method Nasal Cannula Weight: 89.1 kg Body Mass Index (BMI) 30.9 Finger Stick Blood Glucose 118 Intake and Output for Last 24 Hours 05/12/18 05/13/18 05/14/18 23:59 23:59 23:59 Intake Total 338.7 / 338.7 1012.4 / 1012.4 1670.3 / 1670.3 Balance 338.7 / 338.7 1012.4 / 1012.4 1670.3 / 1670.3 Laboratory Tests Past 24 Hrs 05/13/18 05/13/18 05/13/18 20:45 20:45 22:05 WBC RBC Hgb Hct MCV MCH MCHC RDW RDW Differential Plt Count MPV PT INR APTT 40.2 H Sodium Potassium Chloride Carbon Dioxide Anion Gap BUN Creatinine Estim Creat Clear Calc Est GFR (MDRD) Af Amer Est GFR (MDRD) Non-Af BUN/Creatinine Ratio Glucose Calcium Urine Color Yellow Urine Clarity Clear Urine pH 8.0 Ur Specific [place] 1.015 Urine Protein 500 H Urine Glucose (UA) 50 H Urine Ketones Negative Urine Occult Blood 25 H Urine Nitrite Negative Urine Bilirubin Negative Urine Urobilinogen Normal Ur Leukocyte Esterase 25 H Urine RBC 0 SEEN Urine WBC 0-5 SEEN Ur Squamous Epith Cells 5-10 SEEN Urine Bacteria RARE Urine Mucus 0 SEEN Urine Test Negative 05/14/18 05/14/18 05/14/18 05:05 05:05 05:05 WBC 5.8 RBC 2.84 L Hgb 8.6 L Hct 28.2 L MCV 99.3 H MCH 30.3 MCHC 30.5 L RDW 15.6 H RDW Differential 53.5 H Plt Count 118 L MPV 8.9 PT 14.6 INR 1.1 APTT 31.4 Sodium 136 Potassium 5.2 H Chloride 100 Carbon Dioxide 25.0 Anion Gap 11 BUN 53 H Creatinine 7.97 H* Estim Creat Clear Calc 8.43 Est GFR (MDRD) Af Amer 7 L Est GFR (MDRD) Non-Af 6 L BUN/Creatinine Ratio 6.6 L Glucose 133 H Calcium 7.9 L Urine Color Urine Clarity Urine pH Ur Specific [place] Urine Protein Urine Glucose (UA) Urine Ketones Urine Occult Blood Urine Nitrite Urine Bilirubin Urine Urobilinogen Ur Leukocyte Esterase Urine RBC Urine WBC Ur Squamous Epith Cells Urine Bacteria Urine Mucus Urine Test POC Glucose 05/14/18 05/14/18 05/14/18 17:33 12:31 10:14 POC Glucose 128 H 133 H 174 H 05/14/18 05/13/18 06:52 21:00 POC Glucose 153 H 116 H Medical Necessity - Tobacco Use Smoking Status: Former smoker Tobacco Use: Non-smoker Assessment/Plan All Active Problems (Last Updated 02/27/18 @ 10:29 by Pricila Olson) Nausea & vomiting (Resolved) Migraine (Resolved) Metabolic encephalopathy (Resolved) Chest pain (Acute) Tooth abscess (Resolved) Intractable nausea and vomiting (Resolved) Pneumonia (Resolved) Pulmonary edema (Resolved) Hyperkalemia (Resolved) Atypical chest pain (Resolved) Acute hypoxic respiratory failure (Resolved) Pulmonary edema (Resolved) Clostridium difficile enterocolitis (Resolved) Necrotizing myositis (Resolved) Nonischemic cardiomyopathy (Resolved) S/P repair of PDA (patent ductus arteriosus) (Resolved) Dysmenorrhea (Resolved) Hx of necrotizing fascIItis (Resolved) Iron deficiency anemia due to chronic blood loss (Resolved) Systolic congestive heart failure (Resolved) #1 Chest pain in a patient with known coronary artery disease-currently cardiology does not want to proceed with a cardiac catheterization, they feel that patient may need to seek a director of casino as an outpatient and that the patient's chest discomfort is caused by reflux or an esophageal problem. I have increased the patient's Protonix to 20 mg twice a day #2 end-stage renal disease-patient's next dialysis day is Monday, nephrology is participating in her care #3 type 1 diabetes-patient's blood sugars will be monitored and she will be given insulin per protocol and her home insulin dosage #4 hypertension #5 nonischemic cardiomyopathy-most recent EF 45% on echocardiogram in March 2018 #6 hyperlipidemia #7 hematochezia-etiology unclear at this point, H&H will be performed tomorrow, patient may need to be seen by general surgery if she continues to have blood from her ostomy bag. Code Visit Inpatient E&M: 27971 Subs Hosp L2
[2018-05-14] MEDS: Atorvastatin Calcium 20 MG Tablet PO (21:26)
[2018-05-14 21:51] LABS: Bedside Glucose 211 mg/dL (70-110)
[2018-05-15] VITALS (15 sets, daily range): BP systolic 112–159; BP diastolic 49–84; PULSE 72–87; RESP 18–20; TEMP 36.6–37; O2SAT 94–99
[2018-05-15] MEDS: HYDROcodone Bitartrate/Apap 5/325 Tablet PO ×4 (00:07→21:11)
[2018-05-15] MEDS: proMETHazine 25 MG Tablet PO (06:51)
[2018-05-15 06:55] LABS: Hematocrit 27.1 % (37-47); Hemoglobin 8.2 g/dl (12.0-15.0)
[2018-05-15 06:56] LABS: Bedside Glucose 144 mg/dL (70-110)
--- NOTE | 2018-05-15 08:42 | US_ITS ---
STUDY: ABDOMINAL ULTRASOUND - RIGHT UPPER QUADRANT REASON FOR VISIT: Female, 42 years old. Pain. TECHNIQUE: Ultrasound evaluation of the right upper quadrant was performed with real-time and static ruiz-scale imaging. TECHNICAL QUALITY: Limited. Examination limited due to obesity. COMPARISON: CT scan 05/02/2018. FINDINGS: Liver: The liver measures 23 cm. There is increased echogenicity consistent with fatty infiltration. The bile ducts are within normal limits. There is hepatic color flow. The direction of portal flow is hepatopetal. There is no demonstrated mass lesion. Gallbladder: Normal distended gallbladder. The gallbladder wall measures 2 mm. There is a negative sonographic Escalante's sign. There is no pericholecystic fluid. There are no gallstones. Common Bile Duct (C.B.D.): The common bile duct measures 5 mm. Pancreas: Normal size of the head, body and tail of the pancreas. There is normal echogenicity of the pancreas. There is no demonstrated pancreatic mass or cyst. Right Kidney: Normal size of the right kidney. The right kidney measures 10.5 cm. Normal renal cortex. The right cortex measures 1.2 cm. There is no demonstrated renal mass or cyst. There is no right hydronephrosis. US/Abdomen Limited IMPRESSION: Fatty liver with hepatomegaly. No definite acute abnormality. Electronically Signed: James Kahn MD at 22:09 EDT , Service support ,
[2018-05-15] MEDS: Insulin Lispro 100 UNIT/ML INSULN.PEN 10 UNIT SC (08:43)
[2018-05-15] MEDS: Aspirin 81 MG TAB.CHEW PO (08:44)
[2018-05-15] MEDS: Calcium Acetate 667 MG Capsule 1334 MG PO (08:44)
--- NOTE | 2018-05-15 08:48 | PCM.PN.CARD ---
Subjectve: Patient feels nauseated this morning with midepigastric abdominal pain after eating breakfast. This is similar to her previous pain symptoms that she is experienced after eating. Upon further review, the patient appears to been on PPI daily at home prior to her admission. Her PPI therapy was doubled to twice daily yesterday. Patient has had a history of colostomy, but is unable to have it reversed while she is had a recent angioplasty and is on dual antiplatelet therapy. The patient has never had a gallbladder ultrasound. No further chest pain. Objective: Vital Signs Temp Pulse Resp BP Pulse Ox 97.9 F 82 18 149/73 H 99 05/15/18 08:39 05/15/18 08:39 05/15/18 08:39 05/15/18 08:39 05/15/18 08:39 Oxygen Flow Rate (L/min) 3 Oxygen Delivery Method Nasal Cannula Weight: 196 lb 6.91 oz Body Mass Index (BMI) 30.9 Finger Stick Blood Glucose 118 Intake and Output for Last 24 Hours 05/13/18 05/14/18 05/15/18 23:59 23:59 23:59 Intake Total 1012.4 / 1012.4 1670.3 / 1670.3 240 / 240 Balance 1012.4 / 1012.4 1670.3 / 1670.3 240 / 240 General: Awake, Alert, Oriented x 3 HEENT: PERRL, EOMI, Sclera Non Icteric Neck: Supple, Good ROM, No Lymph Node Enlargement Lungs: Clear to auscultation Cardiovascular: Regular Rhythm, Normal S1, Normal S2, No Murmurs, No Rubs, No Gallops Vascular: No Carotid Bruits, Normal Femoral Pulses, Normal Radial Pulses, Normal Dorsalis Pedal Pulse, Normal Posterior Tibial Pulses Abdomen: Bowel Sounds Present, Soft, Non Tender, No HSM, No Organomegaly Extremities: No Cyanosis, No Clubbing, No edema Neurological: No Focal Motor or Sensory Deficit 05/15/18 06:20: Hgb 8.2 L, Hct 27.1 L Rhythm: EKG: ECHO: Stress Test: Cardiac Cath: PCI: CT Surgery: Holter monitor: EPS: PPM: CXR: Chest CT Scan: Medical Necessity - Tobacco Use Smoking Status: Former smoker Tobacco Use: Non-smoker Assessment/Plan 1. Coronary artery disease: The patient presents with atypical non-exertional GERD-like chest pain, admitted openly by the patient, relieved with Tums, and dissimilar from her previous angina prior to her angioplasty in February 2018. Patient underwent a dobutamine echocardiogram in March 2018 which was negative for inducible ischemia, but did have a hypertensive blood pressure response to dobutamine. Patient also has a history of microvascular coronary artery disease and gets chest pain with significant hypertension. I believe the patient has 2 things going on the primary of which is probably reflux similar to her previous reflux symptoms. I recommend discontinuation of Tums or antacids which can exacerbate gastric distention and worsen GERD symptoms. Patient was on a PPI at home on a daily basis, and this is been increased to twice daily. I also advised the patient discontinue all caffeinated as well as alcohol products should she be in consuming any of those. In addition her abdominal pain this morning came after eating breakfast, may suggest gallbladder disease. Recommend obtaining a gallbladder ultrasound, and possible EGD to evaluate her esophagus and stomach. In addition I recommend continuing her aspirin, Plavix, Imdur for hypertension. Her last dobutamine echocardiogram less than 1 month ago was negative for inducible ischemia. I reviewed her catheterization films and she had an excellent outcome of her LAD stent, and her left circumflex vessels are too small for stenting. Would not recommend repeat catheterization at this time. If the patient's symptoms lilly with PPI therapy, which may require several days, I would recommend continuing medical management as outlined above. Patient may need GI consultation or possible surgical consultation if she has gallstones. Should the patient require gallstone surgery or reversal of her colostomy, she does not require any additional cardiac evaluation and she just had a stress test which was negative last month. The patient will however require ongoing dual antiplatelet therapy with aspirin and Plavix through the surgery should that be necessary. 2. Hyperlipidemia: Continue Lipitor therapy. 3. Thank you very much for the opportunity to participate in the cardiac care of your patient. Code Visit Inpatient E&M: 55181 Subs Hosp L2
[2018-05-15] MEDS: Lidocaine/Prilocaine HCl 5 GM Tube TOPICAL (09:30)
[2018-05-15 11:50] LABS: Bedside Glucose 131 mg/dL (70-110)
--- NOTE | 2018-05-15 12:24 | PCM.PN.BLA ---
Progress Note patient was seen on dialysis no new complaints cardiology note reviewed unlikely cardiac pain will follow
[2018-05-15 12:51] LABS: Bedside Glucose 114 mg/dL (70-110)
--- NOTE | 2018-05-15 14:41 | DIALYSIS ---
hemodialysis completed as ordered. -2000ml off. tolerated well. stable t/o. Hemostasis obtained/dressing applied. report to MALLORY
[2018-05-15] MEDS: Pantoprazole Sodium 20 MG Tablet PO ×2 (15:01→21:10)
[2018-05-15] MEDS: Clopidogrel Bisulfate 75 MG Tablet PO (15:01)
[2018-05-15] MEDS: FLUoxetine 20 MG Capsule 40 MG PO (15:01)
[2018-05-15] MEDS: Sodium Bicarbonate 650 MG Tablet PO ×3 (15:02→21:10)
[2018-05-15] MEDS: Lisinopril 40 MG Tablet PO (15:02)
[2018-05-15] MEDS: Carvedilol 25 MG Tablet PO ×2 (15:03→21:10)
--- NOTE | 2018-05-15 15:12 | PCM.PN.HOSP ---
Subjective: Patient is a 42-year-old female with a history of ESRD on HD (TTS), hypertension, CAD on dual antiplatelet therapy, dyslipidemia, history of C. 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 Chest pain is felt to be noncardiac in origin. At this time, patient states that she continues to have intermittent epigastric pain, and does complain of right upper quadrant pain. Admits to nausea and vomiting with this. Scheduled for gallbladder ultrasound today. Completed dialysis this morning. States she has had some blood in her colostomy bag but no more than usual, states it has been present since her surgery in August 2017. Stress echo on 04/17/18: EF 45%. Vitals/I&O's: Vital Signs Temp Pulse Resp BP Pulse Ox 98.6 F 82 20 H 159/84 H 99 05/15/18 14:05 05/15/18 14:05 05/15/18 14:05 05/15/18 14:05 05/15/18 08:39 Oxygen Flow Rate (L/min) 3 Oxygen Delivery Method Nasal Cannula Weight: 89.1 kg Body Mass Index (BMI) 30.9 Finger Stick Blood Glucose 118 Intake and Output for Last 24 Hours 05/13/18 05/14/18 05/15/18 23:59 23:59 23:59 Intake Total 1012.4 / 1012.4 1670.3 / 1670.3 480 / 480 Output Total 1999 / 1999 Balance 1012.4 / 1012.4 1670.3 / 1670.3 -1520 / -1520 General: Alert, Oriented x3, Cooperative HEENT: Atraumatic, Normocephalic Neck: Supple Lungs: Clear to auscultation, Normal air movement Cardiovascular: Regular rate Abdomen: Bowel Sounds Present, Soft, Non Tender - Nontender even with deep palpation in the epigastrium, right upper quadrant region Extremities: No edema Skin: No rashes Musculoskeletal: No Tenderness to Palpation of Joints or Extremities Neurological: Cranial nerves II-XII grossly intact Psych/Mental Status: Normal Affect, Appropriate Laboratory Results 05/14/18 17:33: POC Glucose 128 H 05/14/18 21:23: POC Glucose 211 H 05/15/18 06:20: Hgb 8.2 L, Hct 27.1 L 05/15/18 06:47: POC Glucose 144 H 05/15/18 11:46: POC Glucose 131 H 05/15/18 12:45: POC Glucose 114 H Current Medications Acetaminophen (Tylenol) 650 mg PO Q6H PRN PRN PRN Reason: Mild Pain (1-3)/Temp > 100.7 F Last Admin: 05/13/18 09:43 Dose: 650 mg Hydrocodone Bitart/Acetaminophen ([place] 5mg-325mg) 1 tablet PO Q6H PRN PRN PRN Reason: SEVERE PAIN (6-10) Last Admin: 05/15/18 15:07 Dose: 1 tablet Aspirin (Aspirin, Baby) 81 mg PO DAILY@0800 [facility] Last Admin: 05/15/18 08:44 Dose: 81 mg Atorvastatin Calcium (Lipitor) 20 mg PO QHS [facility] Last Admin: 05/14/18 21:26 Dose: 20 mg Calcium Acetate (Phoslo Gel Cap) 1,334 mg PO TIDCM [facility] Last Admin: 05/15/18 14:47 Dose: Not Given Carvedilol (Coreg) 25 mg PO BID [facility] Last Admin: 05/15/18 15:03 Dose: 25 mg Clopidogrel Bisulfate (Plavix) 75 mg PO DAILY [facility] Last Admin: 05/15/18 15:01 Dose: 75 mg Fluoxetine HCl (Prozac) 40 mg PO DAILY [facility] Last Admin: 05/15/18 15:01 Dose: 40 mg Heparin Sodium (Porcine) (Heparin Na) 0 unit IV UD PRN; Protocol Last Admin: 05/13/18 23:02 Dose: 3,000 unit Insulin Glargine (Lantus (Bkc)) 4 units SC QHS [facility] Last Admin: 05/14/18 21:25 Dose: 4 units Insulin Human Lispro (Humalog Kwikpen (Bkc)) 10 unit SC 0800,1200,1700 [facility] Last Admin: 05/15/18 12:16 Dose: Not Given Insulin Human Lispro (Humalog Kwikpen (Bkc)) [address] [facility]; Protocol Last Admin: 05/15/18 12:15 Dose: Not Given Isosorbide Mononitrate (Imdur) 120 mg PO DAILY [facility] Last Admin: 05/15/18 15:00 Dose: 120 mg Lisinopril (Zestril) 40 mg PO DAILY [facility] Last Admin: 05/15/18 15:02 Dose: 40 mg Magnesium Hydroxide (Milk Of Magnesia) 30 ml PO DAILY PRN PRN Reason: Constipation Pantoprazole Sodium (Protonix) 20 mg PO BID [facility] Last Admin: 05/15/18 15:01 Dose: 20 mg Promethazine HCl (Phenergan Tablet) 25 mg PO Q6H PRN PRN PRN Reason: NAUSEA Last Admin: 05/15/18 06:51 Dose: 25 mg Sodium Bicarbonate (Sodium Bicarbonate) 650 mg PO 4X/DAY [facility] Last Admin: 05/15/18 15:02 Dose: 650 mg Sodium Chloride () 5 - 30 ml IV UD PRN PRN Reason: SALINE FLUSH Last Admin: 05/14/18 05:52 Dose: 10 ml Medical Necessity - Tobacco Use Smoking Status: Former smoker Tobacco Use: Non-smoker Assessment/Plan All Active Problems (Last Updated 02/27/18 @ 10:29 by Pricila Olson) Nausea & vomiting (Resolved) Migraine (Resolved) Metabolic encephalopathy (Resolved) Chest pain (Acute) Tooth abscess (Resolved) Intractable nausea and vomiting (Resolved) Pneumonia (Resolved) Pulmonary edema (Resolved) Hyperkalemia (Resolved) Atypical chest pain (Resolved) Acute hypoxic respiratory failure (Resolved) Pulmonary edema (Resolved) Clostridium difficile enterocolitis (Resolved) Necrotizing myositis (Resolved) Nonischemic cardiomyopathy (Resolved) S/P repair of PDA (patent ductus arteriosus) (Resolved) Dysmenorrhea (Resolved) Hx of necrotizing fascIItis (Resolved) Iron deficiency anemia due to chronic blood loss (Resolved) Systolic congestive heart failure (Resolved) Patient is a 42-year-old female with a history of ESRD on HD (TTS), hypertension, CAD on dual antiplatelet therapy, Insulin-dependent diabetes mellitus, dyslipidemia, history of C. 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 Chest pain is felt to be noncardiac in origin. 1. Chest pain, atypical Likely noncardiac in origin. Suspect possible GI source. Gallbladder ultrasound ordered and is pending. We will also check LFTs. Placed empirically on Protonix for now. 2. CAD, on dual antiplatelet therapy Continue with medical management. Cardiology following. Appears to be noncardiac chest pain. Reviewed results of prior cardiac catheterization and echocardiogram from earlier this year. 3. ESRD on HD At baseline. Continue with dialysis as scheduled. Nephrology following. History of C. difficile 4. History of C. difficile Aware. Currently without any diarrhea. 5. 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 With baseline stool output, occasionally with blood however no change 6. Anemia of chronic kidney disease Appears to be at near baseline, with lowest hemoglobin of 5.2 in August 2017. On Epogen. Continue to monitor H&H. 7. Hyperkalemia Likely resolved following hemodialysis today. Recheck labs in the morning. 8. Morbid obesity, BMI 32 9. Hypertension Blood pressure is adequate at this time. Continue with current antihypertensive medications. 10. Insulin-dependent diabetes mellitus Blood sugars are adequate at this time. Continue with current insulin regimen. 11. DVT prophylaxis With SCDs and ambulation. No anticoagulation due to blood noted in ostomy bag. Await results of gallbladder ultrasound and LFTs. If unremarkable, may need a HIDA scan. Anticipate likely discharge in the next few days pending results of ultrasound. Appreciate consultants. Code Visit Inpatient E&M: 05000 Subs Hosp L3
--- NOTE | 2018-05-15 15:15 | PN_ITS ---
Subjective: Patient is a 42-year-old female with a history of ESRD on HD (TTS), hypertension, CAD on dual antiplatelet therapy, dyslipidemia, history of C. 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 Chest pain is felt to be noncardiac in origin. At this time, patient states that she continues to have intermittent epigastric pain, and does complain of right upper quadrant pain. Admits to nausea and vomiting with this. Scheduled for gallbladder ultrasound today. Completed dialysis this morning. States she has had some blood in her colostomy bag but no more than usual, states it has been present since her surgery in August. Stress echo on 04/17/18: EF 45%. Vitals/I&O's: Vital Signs Temp Pulse Resp BP Pulse Ox 98.6 F 82 20 H 159/84 H 99 05/15/18 14:05 05/15/18 14:05 05/15/18 14:05 05/15/18 14:05 05/15/18 08:39 Oxygen Flow Rate (L/min) 3 Oxygen Delivery Method Nasal Cannula Weight: 89.1 kg Body Mass Index (BMI) 30.9 Finger Stick Blood Glucose 118 Intake and Output for Last 24 Hours 05/13/18 05/14/18 05/15/18 23:59 23:59 23:59 Intake Total 1012.4 / 1012.4 1670.3 / 1670.3 480 / 480 Output Total 1999 Balance 1012.4 / 1012.4 1670.3 / 1670.3 -1520 / -1520 General: Alert, Oriented x3, Cooperative HEENT: Atraumatic, Normocephalic Neck: Supple Lungs: Clear to auscultation, Normal air movement Cardiovascular: Regular rate Abdomen: Bowel Sounds Present, Soft, Non Tender - Nontender even with deep palpation in the epigastrium, right upper quadrant region Extremities: No edema Skin: No rashes Musculoskeletal: No Tenderness to Palpation of Joints or Extremities Neurological: Cranial nerves II-XII grossly intact Psych/Mental Status: Normal Affect, Appropriate Laboratory Results 05/14/18 17:33: POC Glucose 128 H 05/14/18 21:23: POC Glucose 211 H 05/15/18 06:20: Hgb 8.2 L, Hct 27.1 L 05/15/18 06:47: POC Glucose 144 H 05/15/18 11:46: POC Glucose 131 H 05/15/18 12:45: POC Glucose 114 H Current Medications Acetaminophen (Tylenol) 650 mg PO Q6H PRN PRN PRN Reason: Mild Pain (1-3)/Temp > 100.7 F Last Admin: 05/13/18 09:43 Dose: 650 mg Hydrocodone Bitart/Acetaminophen ([place] 5mg-325mg) 1 tablet PO Q6H PRN PRN PRN Reason: SEVERE PAIN (6-1010) Last Admin: 05/15/18 15:07 Dose: 1 tablet Aspirin (Aspirin, Baby) 81 mg PO DAILY@0800 [facility] Last Admin: 05/15/18 08:44 Dose: 81 mg Atorvastatin Calcium (Lipitor) 20 mg PO QHS [facility] Last Admin: 05/14/18 21:26 Dose: 20 mg Calcium Acetate (Phoslo Gel Cap) 1,334 mg PO TIDCM [facility] Last Admin: 05/15/18 14:47 Dose: Not Given Carvedilol (Coreg) 25 mg PO BID [facility] Last Admin: 05/15/18 15:03 Dose: 25 mg Clopidogrel Bisulfate (Plavix) 75 mg PO DAILY [facility] Last Admin: 05/15/18 15:01 Dose: 75 mg Fluoxetine HCl (Prozac) 40 mg PO DAILY [facility] Last Admin: 05/15/18 15:01 Dose: 40 mg Heparin Sodium (Porcine) (Heparin Na) 0 unit IV UD PRN; Protocol Last Admin: 05/13/18 23:02 Dose: 3,000 unit Insulin Glargine (Lantus (Bkc)) 4 units SC QHS [facility] Last Admin: 05/14/18 21:25 Dose: 4 units Insulin Human Lispro (Humalog Kwikpen (Bkc)) 10 unit SC 0800,1200,1700 [facility] Last Admin: 05/15/18 12:16 Dose: Not Given Insulin Human Lispro (Humalog Kwikpen (Bkc)) 0 unit SC ACHS [facility]; Protocol Last Admin: 05/15/18 12:15 Dose: Not Given Isosorbide Mononitrate (Imdur) 120 mg PO DAILY [facility] Last Admin: 05/15/18 15:00 Dose: 120 mg Lisinopril (Zestril) 40 mg PO DAILY [facility] Last Admin: 05/15/18 15:02 Dose: 40 mg Magnesium Hydroxide (Milk Of Magnesia) 30 ml PO DAILY PRN PRN Reason: Constipation Pantoprazole Sodium (Protonix) 20 mg PO BID [facility] Last Admin: 05/15/18 15:01 Dose: 20 mg Promethazine HCl (Phenergan Tablet) 25 mg PO Q6H PRN PRN PRN Reason: NAUSEA Last Admin: 05/15/18 06:51 Dose: 25 mg Sodium Bicarbonate (Sodium Bicarbonate) 650 mg PO 4X/DAY [facility] Last Admin: 05/15/18 15:02 Dose: 650 mg Sodium Chloride () 5 - 30 ml IV UD PRN PRN Reason: SALINE FLUSH Last Admin: 05/14/18 05:52 Dose: 10 ml Medical Necessity - Tobacco Use Smoking Status: Former smoker Tobacco Use: Non-smoker Assessment/Plan All Active Problems (Last Updated 02/27/18 @ 10:29 by Pricila Olson) Nausea & vomiting (Resolved) Migraine (Resolved) Metabolic encephalopathy (Resolved) Chest pain (Acute) Tooth abscess (Resolved) Intractable nausea and vomiting (Resolved) Pneumonia (Resolved) Pulmonary edema (Resolved) Hyperkalemia (Resolved) Atypical chest pain (Resolved) Acute hypoxic respiratory failure (Resolved) Pulmonary edema (Resolved) Clostridium difficile enterocolitis (Resolved) Necrotizing myositis (Resolved) Nonischemic cardiomyopathy (Resolved) S/P repair of PDA (patent ductus arteriosus) (Resolved) Dysmenorrhea (Resolved) Hx of necrotizing fascIItis (Resolved) Iron deficiency anemia due to chronic blood loss (Resolved) Systolic congestive heart failure (Resolved) Patient is a 42-year-old female with a history of ESRD on HD (TTS), hypertension , CAD on dual antiplatelet therapy, Insulin-dependent diabetes mellitus, dyslipidemia, history of C. 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 Chest pain is felt to be noncardiac in origin. 1. Chest pain, atypical * Likely noncardiac in origin. Suspect possible GI source. Gallbladder ultrasound ordered and is pending. We will also check LFTs. Placed empirically on Protonix for now. 2. CAD, on dual antiplatelet therapy * Continue with medical management. Cardiology following. Appears to be noncardiac chest pain. Reviewed results of prior cardiac catheterization and echocardiogram from earlier this year. 3. ESRD on HD * At baseline. Continue with dialysis as scheduled. Nephrology following. History of C. difficile 4. History of C. difficile * Aware. Currently without any diarrhea. 5. 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 With baseline stool output, occasionally with blood however no change 6. Anemia of chronic kidney disease * Appears to be at near baseline, with lowest hemoglobin of 5.2 in August 2017. On Epogen. Continue to monitor H&H. 7. Hyperkalemia * Likely resolved following hemodialysis today. Recheck labs in the morning. 8. Morbid obesity, BMI 32 9. Hypertension * Blood pressure is adequate at this time. Continue with current antihypertensive medications. 10. Insulin-dependent diabetes mellitus * Blood sugars are adequate at this time. Continue with current insulin regimen. 11. DVT prophylaxis * With SCDs and ambulation. No anticoagulation due to blood noted in ostomy bag. * Await results of gallbladder ultrasound and LFTs. If unremarkable, may need a HIDA scan. Anticipate likely discharge in the next few days pending results of ultrasound. Appreciate consultants. Code Visit Inpatient E&M: 57779 [facility] Hosp L3
[2018-05-15] MEDS: Acetaminophen 325 MG Tablet 650 MG PO (16:48)
[2018-05-15] MEDS: Insulin Lispro 100 UNIT/ML INSULN.PEN SC ×2 (16:49→21:10)
[2018-05-15 16:55] LABS: Bedside Glucose 192 mg/dL (70-110)
[2018-05-15] MEDS: Atorvastatin Calcium 20 MG Tablet PO (21:10)
[2018-05-15 23:06] LABS: Bedside Glucose 188 mg/dL (70-110)
[2018-05-16] VITALS (9 sets, daily range): BP systolic 113–131; BP diastolic 50–68; PULSE 73–80; RESP 16–18; TEMP 36.8; O2SAT 96–99
[2018-05-16] MEDS: Acetaminophen 325 MG Tablet 650 MG PO (03:11)
[2018-05-16] MEDS: proMETHazine 25 MG Tablet PO (06:24)
[2018-05-16 06:50] LABS: Bedside Glucose 143 mg/dL (70-110)
[2018-05-16] MEDS: HYDROcodone Bitartrate/Apap 5/325 Tablet PO ×2 (09:08→16:26)
[2018-05-16] MEDS: FLUoxetine 20 MG Capsule 40 MG PO (09:09)
[2018-05-16] MEDS: Lisinopril 40 MG Tablet PO (09:09)
[2018-05-16] MEDS: Aspirin 81 MG TAB.CHEW PO (09:09)
[2018-05-16] MEDS: Clopidogrel Bisulfate 75 MG Tablet PO (09:09)
[2018-05-16] MEDS: Sodium Bicarbonate 650 MG Tablet PO ×3 (09:09→16:52)
[2018-05-16] MEDS: Calcium Acetate 667 MG Capsule 1334 MG PO ×3 (09:09→16:27)
[2018-05-16] MEDS: Insulin Lispro 100 UNIT/ML INSULN.PEN 10 UNIT SC ×3 (09:09→16:27)
[2018-05-16] MEDS: Pantoprazole Sodium 20 MG Tablet PO (09:09)
[2018-05-16] MEDS: Carvedilol 25 MG Tablet PO (09:09)
[2018-05-16 11:25] LABS: Bedside Glucose 115 mg/dL (70-110)
--- NOTE | 2018-05-16 13:57 | PCM.PN.REN ---
Subjective: no new complaints - Physical Exam General: Alert, Oriented x3, Cooperative HEENT: Atraumatic, PERRLA, EOMI, Normocephalic Neck: Supple, No JVD, Negative Carotid Bruits Lungs: Clear to auscultation, Normal air movement Cardiovascular: Regular rate, No murmurs Abdomen: Bowel Sounds Present, Soft, Non Tender Extremities: No edema, Capillary Refill Less than 3 Seconds Skin: No rashes, No breakdown Musculoskeletal: No Tenderness to Palpation of Joints or Extremities Neurological: Cranial nerves II-XII grossly intact Psych/Mental Status: Normal Affect, Appropriate Vital Signs Temp Pulse Resp BP Pulse Ox 98.2 F 76 16 129/59 H 96 05/16/18 09:00 05/16/18 10:59 05/16/18 09:00 05/16/18 09:00 05/16/18 09:00 Oxygen Flow Rate (L/min) 3 Oxygen Delivery Method Room Air Weight: 90.5 kg Body Mass Index (BMI) 30.9 Finger Stick Blood Glucose 118 Intake and Output for Last 24 Hours 05/14/18 05/15/18 05/16/18 23:59 23:59 23:59 Intake Total 1670.3 / 1670.3 940 / 940 300 / 300 Output Total 1999 / 1999 Balance 1670.3 / 1670.3 -1060 / -1060 300 / 300 POC Glucose 05/16/18 05/16/18 05/15/18 11:19 06:21 21:09 POC Glucose 115 H 143 H 188 H 05/15/18 16:45 POC Glucose 192 H Medical Necessity - Tobacco Use Smoking Status: Former smoker Tobacco Use: Non-smoker Assessment/Plan All Active Problems (Last Updated 02/27/18 @ 10:29 by Pricila Olson) Nausea & vomiting (Resolved) Migraine (Resolved) Metabolic encephalopathy (Resolved) Chest pain (Acute) Tooth abscess (Resolved) Intractable nausea and vomiting (Resolved) Pneumonia (Resolved) Pulmonary edema (Resolved) Hyperkalemia (Resolved) Atypical chest pain (Resolved) Acute hypoxic respiratory failure (Resolved) Pulmonary edema (Resolved) Clostridium difficile enterocolitis (Resolved) Necrotizing myositis (Resolved) Nonischemic cardiomyopathy (Resolved) S/P repair of PDA (patent ductus arteriosus) (Resolved) Dysmenorrhea (Resolved) Hx of necrotizing fascIItis (Resolved) Iron deficiency anemia due to chronic blood loss (Resolved) Systolic congestive heart failure (Resolved) ESRD. on HD TTS schedule. Chest pain. Now thought to be epigastric origin. Abdomen USG reviewed. Anemia. Hb is below goal. ESTUARDO with HD will follow Thank you
[2018-05-16] MEDS: Insulin Lispro 100 UNIT/ML INSULN.PEN SC (16:27)
[2018-05-16 16:30] LABS: Bedside Glucose 185 mg/dL (70-110)
--- NOTE | 2018-05-16 16:47 | DCINST_ITS ---
- Discharge Diagnoses Current Active Problems: Current Active and Chronic Problems (Last Updated 02/27/18 @ 10:29 by Pricila Olson) CAD (coronary artery disease) (Chronic) You will use the following diet at home:: Renal (restricted protein/sodium) Your food should be the consistency of: Regular Discharge Activity: Return to Normal Activity Weight Bearing Status: Weight bearing as tolerated Call your doctor if you observe: Shortness of breath, Chest pain Allergies/Adverse Reactions: Allergies latex Allergy (Verified 05/02/18 09:29) Rash levofloxacin [From Levaquin] Adverse Reaction (Verified 05/02/18 09:29) PT CAN'T REMEMBER PT CAN'T REMEMBER metoclopramide HCl [From Reglan] Adverse Reaction (Verified 05/02/18 09:29) Nausea NSAIDS (Non-Steroidal Anti-Inflamma Adverse Reaction (Verified 05/02/18 09:29) kidney function oxycodone HCl [From Percocet] Adverse Reaction (Verified 05/02/18 09:29) HALLUCINATIONS Medications to take at Discharge Aspirin [Aspirin, Baby] 81 mg PO DAILY@0800 01/26/16 Calcium Acetate [Phoslo Gel Cap] 1,334 mg PO TIDCM 01/26/16 Ergocalciferol [Vitamin D] 50,000 unit PO FR 01/26/16 Insulin Aspart [Novolog Flexpen] 10 units SC TIDCM 01/26/16 Insulin Glargine,Hum.rec.anlog [Lantus] 4 unit SQ QHS 01/09/17 proMETHazine tablet [Phenergan tablet] 25 mg PO Q6H PRN PRN #10 tab 03/06/17 Lisinopril 40 mg PO DAILY 03/29/17 Sodium Bicarbonate 650 mg PO 4X/DAY 03/29/17 Fluoxetine HCl 40 mg PO DAILY 09/02/17 ALPRAZolam [Xanax] 0.5 mg PO TUTHSA 11/21/17 Omeprazole Magnesium [Prilosec Otc] 20 mg PO DAILY 02/08/18 Clopidogrel Bisulfate [Plavix] 75 mg PO DAILY #90 tab 02/27/18 Isosorbide Mononitrate [Isosorbide Mononitrate ER] 60 mg PO DAILY 02/28/18 Ondansetron [Zofran Odt] 4 mg PO Q8H PRN PRN #10 tab 03/12/18 carvedilol 25 mg tablet 25 mg PO BID 03/14/18 Atorvastatin Calcium 20 mg PO QHS 03/17/18 Omeprazole 20 mg PO DAILY #30 capsule. 05/16/18 The following prescriptions were given: Omeprazole 20 mg PO DAILY #30 capsule. Primary Care Physician: Christopher Foy MD [Primary Care Provider] - Test Results: Test results from this visit will be discussed in further detail at your follow- up appointment, if applicable.
--- NOTE | 2018-05-16 16:47 | PCM.DC.SUM ---
Discharge Date and Diagnosis Date of Admission: 05/12/18 Date of Discharge: 05/16/18 - Secondary Discharge Diagnosis Chronic Problems (Last Updated 02/27/18 @ 10:29 by Pricila Olson) CAD (coronary artery disease) (Chronic) Stented coronary artery (Chronic 02/26/18) FFR of LAD 0.82; VIKY of mid LAD with 2.5 X 24 mm Promus Synergy, OM <50% stenosis per Dr. Magdaleno @ [facility] Atherosclerotic heart disease of [place] coronary artery without angina pectoris (Chronic) S/P PTCA/VIKY to mid LAD in February 2018 OM #1 noted to be 50%; ESRD (end stage renal disease) on dialysis (Chronic) Decubitus ulcer, stage III (Chronic) Anemia, chronic disease (Chronic) Pilonidal cyst with abscess (Chronic) GABRIEL (obstructive sleep apnea) (Chronic) Depression (Chronic) Anxiety (Chronic) HTN (hypertension) (Chronic) Diabetes mellitus type 1 (Chronic) Hyperlipidemia (Chronic) Obesity (BMI 30.0-34.9) (Chronic) Gastroparesis (Chronic) Hospital Course and Treatment Operations: None Summary of Care Provided: Patient is a 42-year-old female with a history of ESRD on HD (TTS), hypertension, CAD on dual antiplatelet therapy, dyslipidemia, history of C. 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 Chest pain is felt to be noncardiac in origin. Patient was seen in consultation by both cardiology as well as nephrology. She continued her hemodialysis during her hospitalization. Cardiology had felt that this was likely noncardiac in etiology and suspected a possible GI source. Patient underwent a gallbladder ultrasound which was unremarkable and showed no evidence of cholecystitis or cholelithiasis. Upon further workup, patient does admit that she has been off of her omeprazole in the past and states that it has helped her with her heartburn. Suspect patient's symptoms are likely related to acid reflux. She will be discharged home on omeprazole and will continue this as an outpatient. Patient had no further episodes of chest pain and was otherwise doing well. She was stable and ready for discharge and had met maximal hospital benefit. She will continue her home medications as prescribed and will continue hemodialysis on her regular schedule. Objective: General: Alert, Oriented x3, Cooperative HEENT: Atraumatic, Normocephalic Neck: Supple Lungs: Clear to auscultation, Normal air movement Cardiovascular: Regular rate Abdomen: Bowel Sounds Present, Soft, Non Tender - Nontender even with deep palpation in the epigastrium, right upper quadrant region Extremities: No edema Skin: No rashes Musculoskeletal: No Tenderness to Palpation of Joints or Extremities Neurological: Cranial nerves II-XII grossly intact Psych/Mental Status: Normal Affect, Appropriate - Physical Exam Vital Signs Temp Pulse Resp BP Pulse Ox 98.3 F 77 16 131/68 H 96 05/16/18 14:35 05/16/18 14:59 05/16/18 14:35 05/16/18 14:35 05/16/18 14:35 Oxygen Flow Rate (L/min) 3 Oxygen Delivery Method Room Air Weight: 90.5 kg Body Mass Index (BMI) 30.9 Finger Stick Blood Glucose 118 Intake and Output for Last 24 Hours 05/14/18 05/15/18 05/16/18 23:59 23:59 23:59 Intake Total 1670.3 / 1670.3 940 / 940 300 / 300 Output Total 1999 Balance 1670.3 / 1670.3 -1060 / -1060 300 / 300 POC Glucose 05/16/18 05/16/18 05/16/18 16:25 11:19 06:21 POC Glucose 185 H 115 H 143 H 05/15/18 05/15/18 21:09 16:45 POC Glucose 188 H 192 H Discharge Diet: Renal Diet Discharge Activity: Return to Normal Activity Weight Bearing Status: Weight bearing as tolerated Call your doctor if you observe: Shortness of breath, Chest pain Home Medications: Medications to take at Discharge Aspirin [Aspirin, Baby] 81 mg PO DAILY@0800 01/26/16 Calcium Acetate [Phoslo Gel Cap] 1,334 mg PO TIDCM 01/26/16 Ergocalciferol [Vitamin D] 50,000 unit PO FR 01/26/16 Insulin Aspart [Novolog Flexpen] 10 units SC TIDCM 01/26/16 Insulin Glargine,Hum.rec.anlog [Lantus] 4 unit SQ QHS 01/09/17 proMETHazine tablet [Phenergan tablet] 25 mg PO Q6H PRN PRN #10 tab 03/06/17 Lisinopril 40 mg PO DAILY 03/29/17 Sodium Bicarbonate 650 mg PO 4X/DAY 03/29/17 Fluoxetine HCl 40 mg PO DAILY 09/02/17 ALPRAZolam [Xanax] 0.5 mg PO TUTHSA 11/21/17 Omeprazole Magnesium [Prilosec Otc] 20 mg PO DAILY 02/08/18 Clopidogrel Bisulfate [Plavix] 75 mg PO DAILY #90 tab 02/27/18 Isosorbide Mononitrate [Isosorbide Mononitrate ER] 60 mg PO DAILY 02/28/18 Ondansetron [Zofran Odt] 4 mg PO Q8H PRN PRN #10 tab 03/12/18 carvedilol 25 mg tablet 25 mg PO BID 03/14/18 Atorvastatin Calcium 20 mg PO QHS 03/17/18 Omeprazole 20 mg PO DAILY #30 capsule. 05/16/18 Following Prescrptions Were Given to Patient: Omeprazole 20 mg PO DAILY #30 capsule. Primary Care Physician: Christopher Foy MD [Primary Care Provider] - Disposition: Home Patient Condition:: Good Medical Necessity - Tobacco Use Smoking Status: Former smoker Tobacco Use: Non-smoker Meaningful Use Info Meaningful Use Diagnoses (Choose all that apply): None applicable Code Visit Inpatient E&M: 02171 Dis[facility] Hosp
--- NOTE | 2018-05-16 17:07 | NURSING ---
Patient left hospital before this RN came back to go over discharge instructions. Selena fire extinguisher charger to mail her instructions. This RN will attempt to call patient's cell phone.
--- NOTE | 2018-05-17 15:18 | CASEMGMT ---
RN CM Discharge F/U Phone Call LACE: 16 Strata: 4 Discharge date: 05/16/18 Call date: 05/17/18 Call time: 1520 Attempted to reach pt at this time without success, message left for pt to call this RN CM if able. SStaten RN CM Admission dx: Unstable angina
== END 2018-05-16 17:01 | disposition home or self-care (01) | DRG 391 ==
LOC: ED 15:19 → PCU 15:33
PROVIDERS: Internal Medicine Cardiovascular Disease; Admitting Provider Internal Medicine; Emergency Provider Emergency Medicine; Family Provider Family Medicine; PCP Family Medicine; Visit Provider Family Medicine
DX: K21.9 Gastro-esophageal reflux disease without esophagitis (principal); N18.6 End stage renal disease; I42.9 Cardiomyopathy, unspecified; I12.0 Hypertensive chronic kidney disease with stage 5 chronic kidney disease or end stage renal disease; R07.89 Other chest pain; E10.9 Type 1 diabetes mellitus without complications; Z79.4 Long term (current) use of insulin; E78.5 Hyperlipidemia, unspecified; Z23 Encounter for immunization; E10.22 Type 1 diabetes mellitus with diabetic chronic kidney disease; Z99.2 Dependence on renal dialysis; Z87.891 Personal history of nicotine dependence; Z95.5 Presence of coronary angioplasty implant and graft; E66.9 Obesity, unspecified; Z79.02 Long term (current) use of antithrombotics/antiplatelets; Z87.74 Personal history of (corrected) congenital malformations of heart and circulatory system; Z93.3 Colostomy status; I25.10 Atherosclerotic heart disease of native coronary artery without angina pectoris; D63.1 Anemia in chronic kidney disease; Z68.30 Body mass index [BMI] 30.0-30.9, adult
CPT/HCPCS: 36415; 71045; 76705; 80048; 81001; 81025; 82962; 84484; 85014; 85018; 85025; 85027; 85610; 85730; 90937; 93005; 97802; 99285; J1756; J7030; 90686; A4216; G0257

== ENCOUNTER 2018-05-26 13:29 | Emergency (ER) | payer MEDICARE, MEDICAID, SELFPAY ==
[2018-05-26 13:30] VITALS: BP 173/81; PULSE 89; RESP 23; TEMP 36.8; O2SAT 97; BMI 32.1
--- NOTE | 2018-05-26 13:36 | RAD_ITS ---
STUDY: X-RAY CHEST REASON FOR EXAM: Female, 42 years old. Chest pain during dialysis, pain radiates to the back TECHNIQUE: AP COMPARISON: 05/12/2018 FINDINGS: EKG leads project over the chest. Central pulmonary vascular congestion and bibasilar reticular opacities new since the prior study. No sizable pleural effusion. There is mild cardiac enlargement. Normal mediastinum and latrell. There is prominence of the pulmonary hilar arteries and peripheral pulmonary arteries, consistent with congestive heart failure (CHF). Normal visualized aortic arch and descending thoracic aorta. Normal visualized thoracic spine. Stable deformity of the left upper posterior ribs, either from prior trauma/surgery or congenital. There is no demonstrated abnormality of the visualized soft tissue structures of the upper abdomen. RAD/Chest 1 View (Portable) IMPRESSION: 1. Unfavorable change. CHF with interstitial/basilar edema. No sizable effusion. Electronically Signed: Lamberto Otto MD at 14:23 EDT , Service support ,
--- NOTE | 2018-05-26 13:36 | EKG12_ITS ---
Test Reason : CP Blood Pressure : / mmHG Vent. Rate : 089 BPM Atrial Rate : 089 BPM P-R Int : 134 ms QRS Dur : 100 ms QT Int : 410 ms P-R-T Axes : 048 054 246 degrees QTc Int : 498 ms Normal sinus rhythm Minimal voltage criteria for LVH, may be normal variant ST & T wave abnormality, consider inferior ischemia Prolonged QT Abnormal ECG Confirmed by DIVINA BEASLEY, SUSI ([id number]), editorial intern SHANIA SOLITARIO ([id number] on 05/28/2018 3:28:07 PM Referred By: CAITLIN Confirmed By:SUSI MURCIA MD
[2018-05-26 13:49] VITALS: O2SAT 96
[2018-05-26 13:51] LABS: Absolute Lymphocyte Count 0.62 X10^3/ul (0.83-4.51); Absolute Neutrophil Count 5.2 X10^3/uL (2.0-7.7); Basophil# 0.01 X10^3/uL; Basophil% 0.2 % (0-1); Eosinophil# 0.14 X10^3/uL; Eosinophils% 2.3 % (0-5); Hematocrit 28.5 % (37-47); Hemoglobin 8.9 g/dl (12.0-15.0); Lymphocyte # 0.62 X10^3/ul (4.0); Lymphocyte % 10.1 % (19-41); Mean Corp Hgb Conc 31.2 g/gl (32-36); Mean Corpuscular Hgb 29.9 pg (27.0-32.0); Mean Corpuscular Volume 95.6 fL (81-99); Mean Platelet Vol. 8.4 fl (6.2-12.0); Monocyte# 0.17 X10^3/uL; Monocyte% 2.8 % (0-10); Neutrophil # 5.19 X10^3/uL (2.7-7.7); Neutrophil % 84.4 % (47-70); POSITIVE COUNT NO; POSITIVE DIFFERENTIAL NO; POSITIVE MORPHOLOGY NO; Platelet Count 151 K/mm3 (150-450); RBC Distribution Width CV 16.8 % (11.6-14.6); RBC Distribution Width SD 58.2 fl (35.1-43.9); Red Blood Count 2.98 M/mm3 (4.2-5.4); White Blood Count 6.1 K/mm3 (4.4-11.0)
[2018-05-26 14:19] LABS: Anion Gap 9 (5-15); BUN 48 mg/dL (7-18); BUN/Creat Ratio 8.9 RATIO (10-20); Calcium,Total 7.6 mg/dL (8.5-10.1); Chloride 99 mmol/L (98-107); Creatinine, Serum 5.41 mg/dL (0.55-1.02); EST Glomerular Filtration Rate 9 mL/min (>60); Est Glom Filt Rate - Afr Amer 11 mL/min (>60); Estimated Creatinine Clearance 12.42 ml/min; Glucose 351 mg/dL (74-106); Potassium 3.8 mmol/L (3.5-5.1); Sodium Level 137 mmol/L (136-145)
[2018-05-26] MEDS: Ondansetron 4 MG/2 ML Vial IV (14:43)
[2018-05-26] MEDS: Acetaminophen 500 MG Tablet 1000 MG PO (14:43)
[2018-05-26 14:44] VITALS: BP 168/80; PULSE 82; RESP 20; O2SAT 96
--- NOTE | 2018-05-26 15:23 | ED.VISSUMM ---
- ER Visit Summary Date of Service: 05/26/18 Chief Complaint: Chest pain History of Present Illness: The patient is a [address] Magdaleno, Dr. Foy, and Dr. Martinez. She reports that she has chest pain that began while getting dialysis. She describes as a tightness. Zeta 10 to worsen she is pain-free currently. Is worsened by nothing. States that it was relieved by talking to the EMS and that she is under a great deal of stress at home. States that her dad was recently diagnosed with heart problems and kidneys are failing. She reports that she has been nauseated and vomiting since yesterday. States that she is vomited 4-5 times altogether. There is been no blood in her emesis. She denies any shortness of breath. She has a cough productive yellow sputum without blood. No fever. Physical Examination: Vitals: Stable. Afebrile. General: Well-nourished and well-developed. Head: Normocephalic atraumatic. Neck: Supple, no lymphadenopathy. No JVD. Nontender. Cardiovascular: Regular rate and rhythm. No murmurs. Respiratory: No respiratory distress. Clear to auscultation bilaterally. Abdominal: Soft, nontender, nondistended, normal bowel sounds. No guarding, rebound, or peritoneal signs. Back: Nontender. Extremities: Nontender, no edema. Skin: Normal color, no rash. Neurologic: Alert and oriented ?3. Cranial nerves II through XII are intact. Normal strength and sensation. Psych: Depressed affect. Test Results: EKG is sinus at [address] changes. Is unchanged from last month. Troponin is 0.03. Chem-7 is more for BUN 48, creatinine 5.41, glucose of 351, calcium 7.6. CBC is more for an H&H of 8.9 and 20.5, 7 neutrophils 84 and lymphocytes 10. Chest x-ray shows CHF with interstitial/basilar edema. Emergency Department Course and Treatment: Patient was treated with aspirin p.o. and Tylenol p.o. After discussion with the public policy associate she was given a dose of Toradol IV. I reviewed her recent records. She had a heart catheterization in February of this year that did require a stent. However, in March of this year she had a negative stress echo. Last month she was admitted from the to the and no further cardiac workup was needed. Treatment Plan: Patient was discussed with Dr. Tompkins. He reports from a cardiac perspective that she does not need to be admitted to the hospital. The patient was also discussed with Dr. Martinez due to the x-ray findings. Patient is able to ambulate with a pulse ox of 96% while walking. She has oxygen to use at home as needed. Does not feel that she needs to be admitted to the hospital for dialysis. He will arrange for her to have dialysis in 2 days. Patient is happy with this plan. Return to the emergency department for any worsening symptoms. Disposition: To home in improved and stable condition. Impression: 1. Chest pain. 2. CHF. 3. End-stage renal disease on hemodialysis. 4. Depression/anxiety. This note was generated with [employer] dictation software. It may contain incorrect words, spelling, and punctuation that were not noted in review of the chart prior to signing ED Disposition - Plan for ED Patient: Disposition: Home or Assisted Living Chief Complaint: Chest Pain Instructions: ED Chest Pain Atypical Unkn Cause Referrals: Christopher Foy MD [Primary Care Provider] - As soon as possible Chey Martinez MD [STAFF PHYSICIAN] - Mark Magdaleno MD [STAFF PHYSICIAN] - Keep Debbie appointment Additional Instructions: Dr. Martinez will set up doialysis for you on Monday. Call the dialysis center to get the time if you don't here form Dr. Martinez.
--- NOTE | 2018-05-26 15:26 | ED.DCSUM_ITS ---
- ER Visit Summary Date of Service: 05/26/18 Chief Complaint: Chest pain History of Present Illness: The patient is a [address] Magdaleno, Dr. Foy, and Dr. Martinez. She reports that she has chest pain that began while getting dialysis. She describes as a tightness. Zeta 10 to worsen she is pain-free currently. Is worsened by nothing. States that it was relieved by talking to the EMS and that she is under a great deal of stress at home. States that her dad was recently diagnosed with heart problems and kidneys are failing. She reports that she has been nauseated and vomiting since yesterday. States that she is vomited 4-5 times altogether. There is been no blood in her emesis. She denies any shortness of breath. She has a cough productive yellow sputum without blood. No fever. Physical Examination: Vitals: Stable. Afebrile. General: Well-nourished and well-developed. Head: Normocephalic atraumatic. Neck: Supple, no lymphadenopathy. No JVD. Nontender. Cardiovascular: Regular rate and rhythm. No murmurs. Respiratory: No respiratory distress. Clear to auscultation bilaterally. Abdominal: Soft, nontender, nondistended, normal bowel sounds. No guarding, rebound, or peritoneal signs. Back: Nontender. Extremities: Nontender, no edema. Skin: Normal color, no rash. Neurologic: Alert and oriented ?3. Cranial nerves II through XII are intact. Normal strength and sensation. Psych: Depressed affect. Test Results: EKG is sinus at [address] changes. Is unchanged from last month. Troponin is 0.03. Chem-7 is more for BUN 48, creatinine 5.41, glucose of 351, calcium 7.6. CBC is more for an H&H of 8.9 and 20.5, 7 n eutrophils 84 and lymphocytes 10. Chest x-ray shows CHF with interstitial/basilar edema. Emergency Department Course and Treatment: Patient was treated with aspirin p.o. and Tylenol p.o. After discussion with the md allergy immunology she was given a dose of Toradol IV. I reviewed her recent records. She had a heart catheterization in February of this year that did require a stent. However, in March of this year she had a negative stress echo. Last month she was admitted from the to the and no further cardiac workup was needed. Treatment Plan: Patient was discussed with Dr. Tompkins. He reports from a cardiac perspective that she does not need to be admitted to the hospital. The patient was also discussed with Dr. Martinez due to the x-ray findings. Patient is able to ambulate with a pulse ox of 96% while walking. She has oxygen to use at home as needed. Does not feel that she needs to be admitted to the hospital for dialysis. He will arrange for her to have dialysis in 2 days. Patient is happy with this plan. Return to the emergency department for any worsening symptoms. Disposition: To home in improved and stable condition. Impression: 1. Chest pain. 2. CHF. 3. End-stage renal disease on hemodialysis. 4. Depression/anxiety. This note was generated with [employer] dictation software. It may contain incorrect words, spelling, and punctuation that were not noted in review of the chart prior to signing ED Disposition - Plan for ED Patient: Disposition: Home or Assisted Living Chief Complaint: Chest Pain Instructions: ED Chest Pain Atypical Unkn Cause Referrals: Christopher Foy MD [Primary Care Provider] - As soon as possible Chey Martinez MD [STAFF PHYSICIAN] - Mark Magdaleno MD [STAFF PHYSICIAN] - Keep Debbie appointment Additional Instructions: Dr. Martinez will set up doialysis for you on Monday. Call the dialysis center to get the time if you don't here form Dr. Martinez.
[2018-05-26 15:27] VITALS: BP 175/98; PULSE 90; RESP 18; O2SAT 96
[2018-05-26] MEDS: Ketorolac 30 MG/ML Syringe IV (15:43)
[2018-05-26 15:49] VITALS: BP 154/78; PULSE 88; RESP 24
== END 2018-05-26 15:54 | disposition home or self-care (01) ==
LOC: ED 14:48
PROVIDERS: Emergency Provider Emergency Medicine; Family Provider Family Medicine; PCP Family Medicine
DX: R07.9 Chest pain, unspecified (principal); E10.22 Type 1 diabetes mellitus with diabetic chronic kidney disease; I13.2 Hypertensive heart and chronic kidney disease with heart failure and with stage 5 chronic kidney disease, or end stage renal disease; I50.9 Heart failure, unspecified; N18.6 End stage renal disease; Z99.2 Dependence on renal dialysis; R51 Headache; I25.10 Atherosclerotic heart disease of native coronary artery without angina pectoris; E78.00 Pure hypercholesterolemia, unspecified; G47.33 Obstructive sleep apnea (adult) (pediatric); F32.9 Major depressive disorder, single episode, unspecified; F41.9 Anxiety disorder, unspecified; E10.43 Type 1 diabetes mellitus with diabetic autonomic (poly)neuropathy; K31.84 Gastroparesis; Z95.5 Presence of coronary angioplasty implant and graft; Z79.82 Long term (current) use of aspirin; Z79.02 Long term (current) use of antithrombotics/antiplatelets; Z79.4 Long term (current) use of insulin; Z79.899 Other long term (current) drug therapy; Z72.0 Tobacco use
CPT/HCPCS: 71045; 80048; 84484; 85025; 93005; 96374; 96375; 99285; J7030; A4216; J2405

== ENCOUNTER 2018-05-29 09:24 | Emergency (ER) | payer MEDICARE, MEDICAID, SELFPAY ==
[2018-05-29 09:26] VITALS: BP 162/92; PULSE 93; RESP 24; TEMP 36.6; O2SAT 92; BMI 32.1
--- NOTE | 2018-05-29 09:57 | ED.VISSUMM ---
- ER Visit Summary Date of Service: 05/29/18 Chief Complaint: Cough and pleuritic chest pain History of Present Illness: The patient is a 42 F history of prior CAD, [place] with one cardiac stent. Prior CHF and known COPD. Type 2 insulin-dependent diabetic with end-stage renal disease in which she is dialyzed Monday and supposed to be left dialyzes afternoon. States that yesterday she has had a cough of yellowish phlegm. Subjective chills. No fever. Denies any hemoptysis. No history of DVT or PE. No recent travel, surgery no recent immobilization. No calf pain or swelling. Physical Examination: Room air no hypoxia. H EENT exam unremarkable. Neck nontender. Lungs clear to auscultation bilaterally. Heart regular rate and rhythm no murmur. Chest wall nontender. Abdomen soft and nontender. Normal bowel sounds no peritoneal tones. Extremities moves all 4. Calves are nontender without cords. Neurovascular intact. Left forearm dialysis shunt. Neurologically awake alert with no focal motor deficits. Test Results: Chest x-ray with 2 views shows shows congestive heart failure most likely pulmonary edema from missing dialysis. No pneumonia. Read both by myself the radiologist. Emergency Department Course and Treatment: Repeat exam patient is doing well at 1140. Treatment Plan: I spoke to her dialysis center and they assured me that she can come right over and be dialyzed today. They will check any labs refill are necessary. Disposition: Discharge Impression: Acute bronchitis with pleurisy Pulmonary edema secondary to missing dialysis History of end-stage renal disease with dialysis This note was generated with [employer] dictation software. It may contain incorrect words, spelling, and punctuation that were not noted in review of the chart prior to signing ED Disposition - Plan for ED Patient: Chief Complaint: Shortness of Breath Referrals: Christopher Foy MD [Primary Care Provider] -
--- NOTE | 2018-05-29 10:00 | ED.DCSUM_ITS ---
- ER Visit Summary Date of Service: 05/29/18 Chief Complaint: Cough and pleuritic chest pain History of Present Illness: The patient is a 42 F history of prior CAD, [place] with one cardiac stent. Prior CHF and known COPD. Type 2 insulin-dependent diabetic with end-stage renal disease in which she is dialyzed Monday and supposed to be left dialyzes afternoon. States that yesterday she has had a cough of yellowish phlegm. Subjective chills. No fever. Denies any hemoptysis. No history of DVT or PE. No recent travel, surgery no recent immobilization. No calf pain or swelling. Physical Examination: Room air no hypoxia. H EENT exam unremarkable. Neck nontender. Lungs clear to auscultation bilaterally. Heart regular rate and rhythm no murmur. Chest wall nontender. Abdomen soft and nontender. Normal bowel sounds no peritoneal tones. Extremities moves all 4. Calves are nontender without cords. Neurovascular intact. Left forearm dialysis shunt. Neurologically awake alert with no focal motor deficits. Test Results: Chest x-ray with 2 views shows shows congestive heart failure most likely pulmonary edema from missing dialysis. No pneumonia. Read both by myself the radiologist. Emergency Department Course and Treatment: Repeat exam patient is doing well at 1140. Treatment Plan: I spoke to her dialysis center and they assured me that she can come right over and be dialyzed today. They will check any labs refill are necessary. Disposition: Discharge Impression: Acute bronchitis with pleurisy Pulmonary edema secondary to missing dialysis History of end-stage renal disease with dialysis This note was generated with [employer] dictation software. It may contain incorrect words, spelling, and punctuation that were not noted in review of the chart prior to signing ED Disposition - Plan for ED Patient: Chief Complaint: Shortness of Breath Referrals: Christopher Foy MD [Primary Care Provider] -
--- NOTE | 2018-05-29 10:05 | RAD_ITS ---
STUDY: X-RAY CHEST REASON FOR EXAM: Female, 42 years old. Cough. TECHNIQUE: PA and lateral views of the chest. COMPARISON: Comparison is made with prior study dated May 26, 2018. FINDINGS: Since prior study, there is been progressive increased interstitial markings with areas of confluence worse in the lower lobes. This is superimposed on basilar congestion. Findings are suggestive of progressive CHF and possible bibasilar atelectasis. There is blunting of the right costophrenic angle. Normal size heart. Normal mediastinum and latrell. Normal visualized pulmonary arteries. Normal visualized aortic arch and descending thoracic aorta. Normal visualized thoracic spine. Multiple healed left rib fractures. There is no demonstrated abnormality of the visualized soft tissue structures of the upper abdomen. RAD/Chest PA and Lateral IMPRESSION: Progressive increase markings in both lungs with areas of confluence suggestive of progressive CHF. There is blunting of the right costophrenic angle. Electronically Signed: Josh Hill MD at 10:48 EST Tel [phone], Service support ,
[2018-05-29] MEDS: Ondansetron ODT 4 MG Tablet PO (11:31)
[2018-05-29 11:35] VITALS: BP 168/92; PULSE 88; RESP 24; O2SAT 95
[2018-05-29 11:39] VITALS: O2SAT 99
--- NOTE | 2018-05-29 11:44 | ED.DEP ---
ED Disposition - Plan for ED Patient: Disposition: Home or Assisted Living Chief Complaint: Shortness of Breath Instructions: ED CHF General, ED Upper Resp Infec No Abx Tx Referrals: Christopher Foy MD [Primary Care Provider] - As Needed Additional Instructions: I just spoke to your dialysis center and they want to saw you today. You have fluid buildup in your lungs that needs to be dialyzed off. You also have a viral URI which does not need antibiotics.
[2018-05-29 11:49] VITALS: BP 189/72; PULSE 84; RESP 20; O2SAT 96
== END 2018-05-29 11:50 | disposition home or self-care (01) ==
PROVIDERS: Emergency Provider Emergency Medicine; Family Provider Family Medicine; PCP Family Medicine
DX: J20.9 Acute bronchitis, unspecified (principal); R09.1 Pleurisy; E11.22 Type 2 diabetes mellitus with diabetic chronic kidney disease; I13.2 Hypertensive heart and chronic kidney disease with heart failure and with stage 5 chronic kidney disease, or end stage renal disease; I50.9 Heart failure, unspecified; N18.6 End stage renal disease; Z99.2 Dependence on renal dialysis; Z91.15 Patient's noncompliance with renal dialysis; I25.10 Atherosclerotic heart disease of native coronary artery without angina pectoris; I25.2 Old myocardial infarction; J44.9 Chronic obstructive pulmonary disease, unspecified; E78.00 Pure hypercholesterolemia, unspecified; Z86.73 Personal history of transient ischemic attack (TIA), and cerebral infarction without residual deficits; Z95.5 Presence of coronary angioplasty implant and graft; Z79.82 Long term (current) use of aspirin; Z79.4 Long term (current) use of insulin; Z79.02 Long term (current) use of antithrombotics/antiplatelets; Z79.899 Other long term (current) drug therapy; Z72.0 Tobacco use
CPT/HCPCS: 71046; 99282

== ENCOUNTER 2018-06-29 14:19 | Emergency (ER) | payer MEDICARE, MEDICAID, SELFPAY ==
[2018-06-29 14:20] VITALS: BP 153/72; PULSE 100; RESP 20; TEMP 36.6; O2SAT 93; BMI 32.7
--- NOTE | 2018-06-29 14:46 | RAD_ITS ---
STUDY: X-RAY CHEST REASON FOR EXAM: Female, 42 years old. Cough. Shortness of breath. TECHNIQUE: PA and lateral views of the chest. COMPARISON: Comparison is made with prior study dated May 29, 2018. FINDINGS: Since prior study, there has been improved aeration of both lungs. Residual bilateral infiltrates with blunting of both costophrenic angles. I suspect an element of the CHF as well. There is mild cardiac enlargement. Normal mediastinum and latrell. Normal visualized pulmonary arteries. Normal visualized aortic arch and descending thoracic aorta. There is straightening of the normal kyphosis of the thoracic spine. Normal visualized ribs, clavicles, and shoulders. There is no demonstrated abnormality of the visualized soft tissue structures of the upper abdomen. RAD/Chest PA and Lateral IMPRESSION: Improved aeration of both lungs as compared to prior study. Residual changes persist with blunting of both costophrenic angles worse on the right side. I suspect an element of CHF as well. Electronically Signed: Josh Hill MD at 15:41 EST Tel [phone], Service support ,
--- NOTE | 2018-06-29 14:48 | ED.VISSUMM ---
- ER Visit Summary Date of Service: 06/29/18 Chief Complaint: Cough History of Present Illness: The patient is a 42 F of CHF, and cement diabetes, hypertension, end-stage renal disease dialysis. Patient is supposed to be dialyzed Monday. Yesterday she was not feeling well and missed her dialysis. She is had also prior patent ductus arteriosus surgery as a child. She states that for the last 4 days she has had a productive cough of yellowish sputum. No hemoptysis. Has complained of mild shortness of breath. She states that she has had a fever as high as 102 at home. Also nausea and diarrhea. Today she states she also slipped on the ice and when she fell she injured her lower back. Physical Examination: Middle-aged female. No acute distress. Vital signs are stable. Pulse ox 93% on room air. Afebrile. She does not look septic or toxic. HEENT she has no acute antibody. Moist his members. Neck nontender. No JVD. No lymphadenopathy. Lungs clear to auscultation bilaterally. Dry cough. No rales or rhonchi. Heart regular rhythm rate about 100. No murmur appreciated. Abdomen soft. Nondistended. Normal bowel sounds. No peritoneal signs. She does have an ostomy that has loose liquid stool in it. Patient is moving all 4 extremities. She has left forearm dialysis fistula is that have a good thrill. Neurologically she is awake. She has no focal motor or sensory deficits. Test Results: CBC White count 6. Hemoglobin 9.7 which is her baseline chronic anemia. Electrolytes unremarkable BUN of 45. Creatinine 7.5 again is a history of chronic renal failure. Gap of 12. Glucose 190. Chest x-ray shows mild congestive heart failure with vascular congestion but otherwise is Emergency Department Course and Treatment: Patient will be given [place] for pain because she fell on the ice and is complaining of low back pain. Treatment Plan: Repeat exam patient is doing well. She will be discharged to home. I strongly encourage her to make her dialysis treatment tomorrow. Since she missed on . Disposition: discharge Impression: URI Pulmonary edema End-stage renal disease missed last dialysis Fall with lumbar contusion This note was generated with [employer] dictation software. It may contain incorrect words, spelling, and punctuation that were not noted in review of the chart prior to signing ED Disposition - Plan for ED Patient: Chief Complaint: Shortness of Breath Referrals: Christopher Foy MD [Primary Care Provider] -
[2018-06-29 15:06] LABS: Absolute Lymphocyte Count 0.63 X10^3/ul (0.83-4.51); Absolute Neutrophil Count 5.1 X10^3/uL (2.0-7.7); Basophil# 0.01 X10^3/uL; Basophil% 0.2 % (0-1); Eosinophil# 0.16 X10^3/uL; Eosinophils% 2.6 % (0-5); Hematocrit 31.9 % (37-47); Hemoglobin 9.7 g/dl (12.0-15.0); Lymphocyte # 0.63 X10^3/ul (4.0); Lymphocyte % 10.3 % (19-41); Mean Corp Hgb Conc 30.4 g/gl (32-36); Mean Corpuscular Hgb 30.5 pg (27.0-32.0); Mean Corpuscular Volume 100.3 fL (81-99); Mean Platelet Vol. 8.9 fl (6.2-12.0); Monocyte# 0.21 X10^3/uL; Monocyte% 3.4 % (0-10); Neutrophil # 5.09 X10^3/uL (2.7-7.7); Neutrophil % 83.3 % (47-70); Platelet Count 135 K/mm3 (150-450); RBC Distribution Width CV 17.7 % (11.6-14.6); Red Blood Count 3.18 M/mm3 (4.2-5.4); White Blood Count 6.1 K/mm3 (4.4-11.0)
[2018-06-29 15:08] LABS: POSITIVE COUNT NO; POSITIVE DIFFERENTIAL NO; POSITIVE MORPHOLOGY NO
[2018-06-29] MEDS: Ondansetron 4 MG/2 ML Vial IV (15:09)
[2018-06-29] MEDS: Morphine 4 MG/ML Syringe IV (15:10)
[2018-06-29 15:29] LABS: Anion Gap 12 (5-15); BUN 45 mg/dL (7-18); BUN/Creat Ratio 5.7 RATIO (10-20); Calcium,Total 8.4 mg/dL (8.5-10.1); Chloride 101 mmol/L (98-107); Creatinine, Serum 7.92 mg/dL (0.55-1.02); EST Glomerular Filtration Rate 6 mL/min (>60); Est Glom Filt Rate - Afr Amer 7 mL/min (>60); Estimated Creatinine Clearance 8.49 ml/min; Glucose 190 mg/dL (74-106); Potassium 4.1 mmol/L (3.5-5.1); Sodium Level 138 mmol/L (136-145)
--- NOTE | 2018-06-29 16:17 | ED.DEP ---
ED Disposition - Plan for ED Patient: Disposition: Home or Assisted Living Chief Complaint: Shortness of Breath Instructions: ED Upper Resp Infec No Abx Tx Referrals: Christopher Foy MD [Primary Care Provider] - As Needed Additional Instructions: Absolutely positively make sure that you make her dialysis to him in tomorrow. You have fluid collecting in your lungs and not only get worse if you do not get dialyzed tomorrow. Follow-up with your doctor as needed. Return to the ER feeling worse.
[2018-06-29 16:34] VITALS: PULSE 103; RESP 24; O2SAT 90
== END 2018-06-29 16:34 | disposition home or self-care (01) ==
PROVIDERS: Emergency Provider Emergency Medicine; Family Provider Family Medicine; PCP Family Medicine
DX: J06.9 Acute upper respiratory infection, unspecified (principal); I13.2 Hypertensive heart and chronic kidney disease with heart failure and with stage 5 chronic kidney disease, or end stage renal disease; I50.1 Left ventricular failure, unspecified; N18.6 End stage renal disease; E11.22 Type 2 diabetes mellitus with diabetic chronic kidney disease; Z99.2 Dependence on renal dialysis; S30.0XXA Contusion of lower back and pelvis, initial encounter; W00.0XXA Fall on same level due to ice and snow, initial encounter; Y93.9 Activity, unspecified; Y92.9 Unspecified place or not applicable; R19.7 Diarrhea, unspecified; D53.9 Nutritional anemia, unspecified; I25.10 Atherosclerotic heart disease of native coronary artery without angina pectoris; Z87.74 Personal history of (corrected) congenital malformations of heart and circulatory system; Z95.5 Presence of coronary angioplasty implant and graft; Z79.82 Long term (current) use of aspirin; Z79.02 Long term (current) use of antithrombotics/antiplatelets; Z79.4 Long term (current) use of insulin; Z79.899 Other long term (current) drug therapy; Z72.0 Tobacco use
CPT/HCPCS: 71046; 80048; 85025; 96374; 96375; 99283; J2405

== ENCOUNTER 2018-07-01 14:09 | Inpatient (IN) | payer MEDICARE, MEDICAID, SELFPAY ==
[2018-07-01] VITALS (8 sets, daily range): BP systolic 134–149; BP diastolic 67–78; PULSE 79–97; RESP 16–22; TEMP 36.7–37; O2SAT 94–99; BMI 31.4; BMI 31.5
--- NOTE | 2018-07-01 14:07 | PCM.HP.STD ---
Problem List (1) Chest pain Status: Acute Qualifiers: Chest pain type: precordial pain Qualified Code(s): R07.2 - Precordial pain (2) CAD (coronary artery disease) Status: Chronic Qualifiers: Coronary Disease-Associated Artery/Lesion type: kake artery [place] vs. transplanted heart: kake heart (3) Atherosclerotic heart disease of k[place] coronary artery without angina pectoris Status: Chronic Qualifiers: [place] vs. transplanted heart: unspecified whether k[place] or transplanted heart Qualified Code(s): I25.10 - Atherosclerotic heart disease of k[place] coronary artery without angina pectoris Comment: S/P PTCA/VIKY to mid LAD in February 2018 OM #1 noted to be 50%; (4) Migraine Status: Resolved Qualifiers: Migraine type: unspecified Status migrainosus presence: without status migrainosus Intractability: not intractable Qualified Code(s): G43.909 - Migraine, unspecified, not intractable, without status migrainosus (5) ESRD (end stage renal disease) on dialysis Status: Chronic (6) Anemia, chronic disease Status: Chronic (7) GABRIEL (obstructive sleep apnea) Status: Chronic (8) Depression Status: Chronic Qualifiers: Depression Type: unspecified Qualified Code(s): F32.9 - Major depressive disorder, single episode, unspecified (9) Anxiety Status: Chronic (10) HTN (hypertension) Status: Chronic Qualifiers: Hypertension type: essential hypertension Qualified Code(s): I10 - Essential (primary) hypertension (11) Nonischemic cardiomyopathy Status: Resolved (12) S/P repair of PDA (patent ductus arteriosus) Status: Resolved Comment: At young age (13) Diabetes mellitus type 1 Status: Chronic Qualifiers: Diabetes mellitus complication status: with unspecified complications Qualified Code(s): E10.8 - Type 1 diabetes mellitus with unspecified complications (14) Hyperlipidemia Status: Chronic Qualifiers: Hyperlipidemia type: unspecified Qualified Code(s): E78.5 - Hyperlipidemia, unspecified (15) Obesity (BMI 30.0-34.9) Status: Chronic (16) Gastroparesis Status: Chronic History of Present Illness Date of Admission: 07/01/18 Chief Complaint: Recent URI/congestion, Chest pain/tightness onset The patient is a 42 y/o F w/ PMHx: ESRD on HD T//Mon, Diabetes mellitus type II w/ Neuropathy and Gastroparesis, HTN, HLD, Tobacco use, Obesity, LV Diastolic Dysfx, Systolic CHF/Cardiomyopathy Unclear type, CAD s/p 2012 catheterization w/ mild LAD disease w/ medical therapy and 02/24/2018 catheterization w/ VIKY to LAD w/ medical management decision for mid obtuse marginal stenosis w/ follow-up dobutamine stress testing 04/17/18 which was negative for inducible ischemia, Anxiety and Depression, AOCD/Fe deficiency anemia, Tobacco use with recent URI symptoms, congestion, seen in the ED on 06/29/[address] [facility] w/ history of missing her dialysis secondary to feeling poorly with noted 4-day history of mildly productive cough of yellow sputum with concurrent mild dyspnea reporting a fever of up to 102 at home with additionally nausea in addition to fall noted to have slipped on the ice with ongoing mild lumbar back discomfort discharged to home with recommendation to follow-up with dialysis and actually have her dialysis performed in addition to URI as well as lumbar contusion secondary to recent fall prior w/ chest x-ray with mild overload consistent with missing dialysis otherwise no acute findings who now represents to the [facility] on 07/01/18 as direct transfer from [facility] ED secondary to worsening symptoms and onset, intermittent, waxing and waning, non-radiating, generalized chest tightness with the noted symptoms including mild dyspnea. ED presentation at OSH, rated chest tightness 1/10-->resolved upon conversation with ED physician prior to transfer. Additional OSH ED evaluation w/ VS: T 36.8, BP 130/84, HR 94, RR 18, 93% on RA, CBC w/ WBC 6.3, Hgb 9.9, Plts 153 with mild L shift, BMP w/ Na 139, K 4.3, BUN/Cr 30/5.86, glucose 127, Trop 0.331 (higher than ever noted prior), EKG w/ T wave inversions inferiorly 2-3, aVF, more pronounced from prior, inverted T waves V5-6, CXR stable, unchanged from prior, Rapid Influenza: Negative. In the OSH ED patient administered Duoneb, ASA 160 mg x 1. Past Medical History Past Medical History (Chronic Problems): Chronic Problems (Last Updated 02/27/18 @ 10:29 by Pricila Olson) CAD (coronary artery disease) (Chronic) Stented coronary artery (Chronic 02/26/18) FFR of LAD 0.82; VIKY of mid LAD with 2.5 X 24 mm Promus Synergy, OM <50% stenosis per Dr. Magdaleno @ [facility] Atherosclerotic heart disease of k[place] coronary artery without angina pectoris (Chronic) S/P PTCA/VIKY to mid LAD in February 2018 OM #1 noted to be 50%; ESRD (end stage renal disease) on dialysis (Chronic) Decubitus ulcer, stage III (Chronic) Anemia, chronic disease (Chronic) Pilonidal cyst with abscess (Chronic) GABRIEL (obstructive sleep apnea) (Chronic) Depression (Chronic) Anxiety (Chronic) HTN (hypertension) (Chronic) Diabetes mellitus type 1 (Chronic) Hyperlipidemia (Chronic) Obesity (BMI 30.0-34.9) (Chronic) Gastroparesis (Chronic) Medical History: Medical History (Last Updated 02/27/18 @ 10:29 by Pricila Olson) Atherosclerotic heart disease of [place] coronary artery without angina pectoris (Chronic) I25.10 S/P PTCA/VIKY to mid LAD in February 2018 OM #1 noted to be 50%; ESRD (end stage renal disease) on dialysis (Chronic) N18.6, Z99.2 Decubitus ulcer, stage III (Chronic) L89.93 Anemia, chronic disease (Chronic) D63.8 Pilonidal cyst with abscess (Chronic) L05.01 GABRIEL (obstructive sleep apnea) (Chronic) G47.33 HTN (hypertension) (Chronic) I10 Nonischemic cardiomyopathy (Resolved) I42.8 Diabetes mellitus type 1 (Chronic) Hyperlipidemia (Chronic) E78.5 Obesity (BMI 30.0-34.9) (Chronic) E66.9 Gastroparesis (Chronic) K31.84 Allergies latex Allergy (Verified 06/29/18 14:21) Rash prochlorperazine [From Compazine] Allergy (Verified 06/29/18 14:21) Unknown levofloxacin [From Levaquin] Adverse Reaction (Verified 06/29/18 14:21) PT CAN'T REMEMBER PT CAN'T REMEMBER metoclopramide HCl [From Reglan] Adverse Reaction (Verified 06/29/18 14:21) Nausea NSAIDS (Non-Steroidal Anti-Inflamma Adverse Reaction (Verified 06/29/18 14:21) kidney function oxycodone HCl [From Percocet] Adverse Reaction (Verified 06/29/18 14:21) HALLUCINATIONS Home Medications: Ambulatory Orders Medication Instructions Recorded Aspirin [Aspirin, Baby] 81 mg PO DAILY@0800 01/26/16 Calcium Acetate [Phoslo Gel Cap] 1,334 mg PO TIDCM 01/26/16 Ergocalciferol [Vitamin D] 50,000 unit PO QWEEK 01/26/16 Insulin Aspart [Novolog Flexpen] 10 units SC TIDCM 01/26/16 Insulin Glargine,Hum.rec.anlog 4 unit SQ QHS 01/09/17 [Lantus] proMETHazine tablet [Phenergan 25 mg PO Q6H PRN PRN #10 tab 03/06/17 tablet] Lisinopril 40 mg PO DAILY 03/29/17 Sodium Bicarbonate 650 mg PO 4X/DAY 03/29/17 Omeprazole Magnesium [Prilosec Otc] 20 mg PO DAILY 02/08/18 Isosorbide Mononitrate [Isosorbide 60 mg PO DAILY 02/28/18 Mononitrate ER] Atorvastatin Calcium [Lipitor] 20 mg PO QHS 05/26/18 Carvedilol [Coreg] 25 mg PO BID 05/26/18 Loperamide HCl [Imodium A-D] 2 mg PO TID PRN 05/26/18 Pantoprazole Sodium [Protonix] 20 mg PO BID 05/26/18 Clopidogrel Bisulfate [Plavix] 75 mg PO DAILY 07/01/18 Surgical History: Surgical History (Last Updated 02/27/18 @ 10:29 by Pricila Olson) Stented coronary artery (Chronic) Onset Date: 02/26/18 Z95.5 FFR of LAD 0.82; VIKY of mid LAD with 2.5 X 24 mm Promus Synergy, OM <50% stenosis per Dr. Magdaleno @ [facility] S/P repair of PDA (patent ductus arteriosus) (Resolved) Z98.890, Z87.74 At young age Surgical History: appendectomy, hysterectomy - and BSO, - - c-sections, L breast I+D for abscess, fistula placement LUE, L ankle surgery, appendectomy, PDA repair. Excision pilonidal cyst ulcer about 4 years ago. Colostomy placed due to rectal abscess/wound, patent ductus repair, drug-eluting stent placement left anterior descending coronary artery February 2018. Psychiatric History: Anxiety, Depression CLAIM REVIEW MEDICAL DIRECTOR History: No pertinent CLAIM REVIEW MEDICAL DIRECTOR history Lives: Alone Smoking Status: Current some day smoker - 1/2 ppd tobacco cigarette usage ongoing. Tobacco Use: Cigarettes Alcohol: None Drugs: None - *Family History Maternal History Items: Cancer, COPD, Diabetes, Hypertension, Renal Disease, Stroke Paternal History Items: Diabetes Sibling History Items: Cancer, Diabetes Review of Systems Constitutional: Reports: Anorexia, Malaise, Weakness, Fatigue. Denies: Chills, Fever, Weight Change HEENT: Reports: Post Nasal Drip, Sinus Congestion, Sinus Drainage, Sore Throat. Denies: Head Aches Cardiovascular: Reports: Chest Pain, Chest Tightness. Denies: Palpitations Respiratory: Reports: Cough, Shortness of Breath, Shortness of breath at rest, Shortness of breath upon exertion, Sputum production Gastrointestinal: Denies: Abdominal Pain, Nausea, Vomiting Genitourinary: Denies: Dysuria Musculoskeletal: Reports: Back Pain. Denies: Joint Pain, Joint Tenderness Skin: Denies: Rash, Wounds Neurological: Denies: Focal weakness, Numbness, Tingling Psychiatric: Reports: Anxiety, Depression. Denies: Homicidal Ideations, Suicidal Ideations Hematologic/ Lymphatic: Reports: Anemia, Easy Bruising, Easy Bleeding VTE Information - Inpt Only VTE Present on Admission: No VTE Mechan Device Prophylaxis: SCD's VTE Pharm Prophylaxis ordered?: Yes Subjective: Seated upright in the bed, fatigued appearance, hoarse voice. Objective: Physical Examination: General: awake, alert, oriented x 3 and cooperative, seated upright in bed in no apparent distress, fatigued appearance. Skin: normal color, turgor, no icterus, cyanosis. HEENT: AT/NC, EOMI, PERRLA, mildly dry MM, no carotid bruits or JVD noted. Lungs: Diminished BS, > bases, mild effort, hoarse voice, harsh coughing, no rales, ronchi or wheezing. Heart: Regular rate and rhythm; no gallop, rub audible, reproducible chest discomfort, also patient notes worse with coughing fits. Abdomen: soft, obese, NTTP, ND, normal BS, no HSM. Extremities: no cyanosis, clubbing, or edema, AVF + thrill, TTP lumbar BL paraspinous muscles. Neurological: patient awake, alert, oriented x 3; cognitive function intact; pupils equally reactive to light and accomodation; cranial nerves II-XII grossly normal, moving all 4 extremities, no focal deficits, strength moderately globally decreased. Psychiatric: affect appears fatigued, flat, no acute evidence of depressive or anxiety feelings. - Physical Exam Body Mass Index (BMI) 32.7 Finger Stick Blood Glucose 118 Assessment/Plan All Active Problems (Last Updated 02/27/18 @ 10:29 by Pricila Olson) Nausea & vomiting (Resolved) Migraine (Resolved) Metabolic encephalopathy (Resolved) Chest pain (Acute) Tooth abscess (Resolved) Intractable nausea and vomiting (Resolved) Pneumonia (Resolved) Pulmonary edema (Resolved) Hyperkalemia (Resolved) Atypical chest pain (Resolved) Acute hypoxic respiratory failure (Resolved) Pulmonary edema (Resolved) Clostridium difficile enterocolitis (Resolved) Necrotizing myositis (Resolved) Nonischemic cardiomyopathy (Resolved) S/P repair of PDA (patent ductus arteriosus) (Resolved) Dysmenorrhea (Resolved) Hx of necrotizing fascIItis (Resolved) Iron deficiency anemia due to chronic blood loss (Resolved) Systolic congestive heart failure (Resolved) The patient is a 42 y/o F w/ PMHx: ESRD on HD T//Mon, Diabetes mellitus type II w/ Neuropathy and Gastroparesis, HTN, HLD, Tobacco use, Obesity, LV Diastolic Dysfx, Systolic CHF/Cardiomyopathy Unclear type, CAD s/p 2012 catheterization w/ mild LAD disease w/ medical therapy and 02/24/2018 catheterization w/ VIKY to LAD w/ medical management decision for mid obtuse marginal stenosis w/ follow-up dobutamine stress testing 04/17/18 which was negative for inducible ischemia, Anxiety and Depression, AOCD/Fe deficiency anemia, Tobacco use with recent URI symptoms, congestion, seen in the ED on 06/29/[address] [facility] w/ history of missing her dialysis secondary to feeling poorly with noted 4-day history of mildly productive cough of yellow sputum with concurrent mild dyspnea reporting a fever of up to 102 at home with additionally nausea in addition to fall noted to have slipped on the ice with ongoing mild lumbar back discomfort discharged to home with recommendation to follow-up with dialysis and actually have her dialysis performed in addition to URI as well as lumbar contusion secondary to recent fall prior w/ chest x-ray with mild overload consistent with missing dialysis otherwise no acute findings who now represents to the [facility] on 07/01/18 as direct transfer from [facility] ED secondary to worsening symptoms and onset, intermittent, waxing and waning, non-radiating, generalized chest tightness with the noted symptoms including mild dyspnea. (1) Chest Pain w/ indeterminate cardiac enzymes: Presentation w/ noted worsened discomfort with coughing but enzyme above noted prior enzymes. OSH ED evaluation w/ VS: T 36.8, BP 130/84, HR 94, RR 18, 93% on RA, CBC w/ WBC 6.3, Hgb 9.9, Plts 153 with mild L shift, BMP w/ Na 139, K 4.3, BUN/Cr 30/5.86, glucose 127, Trop 0.331 (higher than ever noted prior), EKG w/ T wave inversions inferiorly 2-3, aVF, more pronounced from prior, inverted T waves V5-6, CXR stable, unchanged from prior, Rapid Influenza: Negative.Will admit to PCU, place on a monitored bed to assure no acute myocardial infarction with serial cardiac enzymes and EKGs. ECHO requested. Mag pending. Cardiology consulted, pending, may decide on trending only. ASA, plavix, NG, morphine. (2) Recent URI, Bronchitis: Maintain on oxygen with wean as tolerated to room air, continue ATC duonebs, PRN albuterol, HOB, IS parameters, obtain viral respiratory panel. Supportive care. (3) CAD: s/p 2012 catheterization w/ mild LAD disease w/ medical therapy and 02/24/2018 catheterization w/ VIKY to LAD w/ medical management decision for mid obtuse marginal stenosis w/ follow-up dobutamine stress testing 04/17/18 which was negative for inducible ischemia, continue home regimen asa, plavix, statin, BB. (4) ESRD on HD: T, Th, Sat. Noted to have most recently been on day of presentation. Will consult Nephrology as possible catheterization which would require HD following. (5) Chronic systolic CHF, Cardiomyopathy Unclear Type, Diastolic DysFx, CAD: EF 45-50% w/ 05/2013 normal cardiac catheterization per Dr. Magdaleno, recent stress testing 04/17/18 which was negative for inducible ischemia, continue asa, BB, ACEI, statin. (6) Diabetes mellitus type II w/ Neuropathy, Gastroparesis: Continue home insulin regimen, ADA diet w/ NPO after midnight in case of cardiology intervention decision, accu checks w/ ISS. (7) Hypertension: Continue home regimen coreg, lisinopril, isosorbide, PRN hydralazine. (8) Hyperlipidemia: Continue home statin regimen. (9) Depression and Anxiety: Continue home Prozac, Xanax regimen. (10) Tobacco Abuse: Encouraged cessation, inpatient consultation per RT, NR if desired. (11) Obesity: Weight loss and lifestyle changes encouraged. (12) GERD: PPI. (13) AOCD: Admission Hgb 9.9, stable, trend. (14) Recent Mechanical Fall w/ Lumbar Strain, Contusion: BL paraspinous lumbar region muscle TTP, recommend position changes frequently, k-pad, conservative measures. (15) DVT Prophylaxis: SCDs, heparin. Code Visit OBSV E&M: [id number] Initial observation care L3
--- NOTE | 2018-07-01 14:14 | HP.PCM_ITS ---
Problem List (1) Chest pain Status: Acute Qualifiers: Chest pain type: precordial pain Qualified Code(s): R07.2 - Precordial pain (2) CAD (coronary artery disease) Status: Chronic Qualifiers: Coronary Disease-Associated Artery/Lesion type: [place] artery [place] vs. transplanted heart: [place] heart (3) Atherosclerotic heart disease of [place] coronary artery without angina pectoris Status: Chronic Qualifiers: [place] vs. transplanted heart: unspecified whether [place] or transplanted heart Qualified Code(s): I25.10 - Atherosclerotic heart disease of [place] coronary artery without angina pectoris Comment: S/P PTCA/VIKY to mid LAD in February 2018 OM #1 noted to be 50%; (4) Migraine Status: Resolved Qualifiers: Migraine type: unspecified Status migrainosus presence: without status migrainosus Intractability: not intractable Qualified Code(s): G43.909 - Migraine, unspecified, not intractable, without status migrainosus (5) ESRD (end stage renal disease) on dialysis Status: Chronic (6) Anemia, chronic disease Status: Chronic (7) GABRIEL (obstructive sleep apnea) Status: Chronic (8) Depression Status: Chronic Qualifiers: Depression Type: unspecified Qualified Code(s): F32.9 - Major depressive disorder, single episode, unspecified (9) Anxiety Status: Chronic (10) HTN (hypertension) Status: Chronic Qualifiers: Hypertension type: essential hypertension Qualified Code(s): I10 - Essential (primary) hypertension (11) Nonischemic cardiomyopathy Status: Resolved (12) S/P repair of PDA (patent ductus arteriosus) Status: Resolved Comment: At young age (13) Diabetes mellitus type 1 Status: Chronic Qualifiers: Diabetes mellitus complication status: with unspecified complications Qualified Code(s): E10.8 - Type 1 diabetes mellitus with unspecified complications (14) Hyperlipidemia Status: Chronic Qualifiers: Hyperlipidemia type: unspecified Qualified Code(s): E78.5 - Hyperlipidemia, unspecified (15) Obesity (BMI 30.0-34.9) Status: Chronic (16) Gastroparesis Status: Chronic History of Present Illness Date of Admission: 07/01/18 Chief Complaint: Recent URI/congestion, Chest pain/tightness onset The patient is a 42 y/o F w/ PMHx: ESRD on HD T//Mon, Diabetes mellitus type II w/ Neuropathy and Gastroparesis, HTN, HLD, Tobacco use, Obesity, LV Diastolic Dysfx, Systolic CHF/Cardiomyopathy Unclear type, CAD s/p 2012 catheterization w/ mild LAD disease w/ medical therapy and 02/24/2018 catheterization w/ VIKY to LAD w/ medical management decision for mid obtuse marginal stenosis w/ follow-up dobutamine stress testing 04/17/18 which was negative for inducible ischemia, Anxiety and Depression, AOCD/Fe deficiency anemia, Tobacco use with recent URI symptoms, congestion, seen in the ED on 06/29/18 at [facility] w/ history of missing her dialysis secondary to feeling poorly with noted 4-day history of mildly productive cough of yellow sputum with concurrent mild dyspnea reporting a fever of up to 102 at home with additionally nausea in addition to fall noted to have slipped on the ice with ongoing mild lumbar back discomfort discharged to home with recommendation to follow-up with dialysis and actually have her dialysis performed in addition to URI as well as lumbar contusion secondary to recent fall prior w/ chest x-ray with mild overload consistent with missing dialysis otherwise no acute findings who now represents to the [facility] on 07/01/18 as direct transfer from [facility] ED secondary to worsening symptoms and onset, intermittent, waxing and waning, non-radiating, generalized chest tightness with the noted symptoms including mild dyspnea. ED presentation at OSH, rated chest tightness 1/10-->resolved upon conversation with ED physician prior to transfer. Additional OSH ED evaluation w/ VS: T 36.8, BP 130/84, HR 94, RR 18, 93% on RA, CBC w/ WBC 6.3, Hgb 9.9, Plts 153 with mild L shift, BMP w/ Na 139, K 4.3, BUN/Cr 30/5.86, glucose 127, Trop 0.331 (higher than ever noted prior), EKG w/ T wave inversions inferiorly 2-3, aVF, more pronounced from prior, inverted T waves V5-6, CXR stable, unchanged from prior, Rapid Influenza: Negative. In the OSH ED patient administered Duoneb, ASA 160 mg x 1. Past Medical History Past Medical History (Chronic Problems): Chronic Problems (Last Updated 02/27/18 @ 10:29 by Pricila Olson) CAD (coronary artery disease) (Chronic) Stented coronary artery (Chronic 02/26/18) FFR of LAD 0.82; VIKY of mid LAD with 2.5 X 24 mm Promus Synergy, OM <50% stenosis per Dr. Magdaleno @ [facility] Atherosclerotic heart disease of [place] coronary artery without angina pectoris (Chronic) S/P PTCA/VIKY to mid LAD in February 2018 OM #1 noted to be 50%; ESRD (end stage renal disease) on dialysis (Chronic) Decubitus ulcer, stage III (Chronic) Anemia, chronic disease (Chronic) Pilonidal cyst with abscess (Chronic) GABRIEL (obstructive sleep apnea) (Chronic) Depression (Chronic) Anxiety (Chronic) HTN (hypertension) (Chronic) Diabetes mellitus type 1 (Chronic) Hyperlipidemia (Chronic) Obesity (BMI 30.0-34.9) (Chronic) Gastroparesis (Chronic) Medical History: Medical History (Last Updated 02/27/18 @ 10:29 by Pricila Olson) Atherosclerotic heart disease of [place] coronary artery without angina pectoris (Chronic) I25.10 S/P PTCA/VIKY to mid LAD in February 2018 OM #1 noted to be 50%; ESRD (end stage renal disease) on dialysis (Chronic) N18.6, Z99.2 Decubitus ulcer, stage III (Chronic) L89.93 Anemia, chronic disease (Chronic) D63.8 Pilonidal cyst with abscess (Chronic) L05.01 GABRIEL (obstructive sleep apnea) (Chronic) G47.33 HTN (hypertension) (Chronic) I10 Nonischemic cardiomyopathy (Resolved) I42.8 Diabetes mellitus type 1 (Chronic) Hyperlipidemia (Chronic) E78.5 Obesity (BMI 30.0-34.9) (Chronic) E66.9 Gastroparesis (Chronic) K31.84 Allergies latex Allergy (Verified 06/29/18 14:21) Rash prochlorperazine [From Compazine] Allergy (Verified 06/29/18 14:21) Unknown levofloxacin [From Levaquin] Adverse Reaction (Verified 06/29/18 14:21) PT CAN'T REMEMBER PT CAN'T REMEMBER metoclopramide HCl [From Reglan] Adverse Reaction (Verified 06/29/18 14:21) Nausea NSAIDS (Non-Steroidal Anti-Inflamma Adverse Reaction (Verified 06/29/18 14:21) kidney function oxycodone HCl [From Percocet] Adverse Reaction (Verified 06/29/18 14:21) HALLUCINATIONS Home Medications: Ambulatory Orders Medication Instructions Recorded Aspirin [Aspirin, Baby] 81 mg PO DAILY@0800 01/26/16 Calcium Acetate [Phoslo Gel Cap] 1,334 mg PO TIDCM 01/26/16 Ergocalciferol [Vitamin D] 50,000 unit PO QWEEK 01/26/16 Insulin Aspart [Novolog Flexpen] 10 units SC TIDCM 01/26/16 Insulin Glargine,Hum.rec.anlog 4 unit SQ QHS 01/09/17 [Lantus] proMETHazine tablet [Phenergan 25 mg PO Q6H PRN PRN #10 tab 03/06/17 tablet] Lisinopril 40 mg PO DAILY 03/29/17 Sodium Bicarbonate 650 mg PO 4X/DAY 03/29/17 Omeprazole Magnesium [Prilosec Otc] 20 mg PO DAILY 02/08/18 Isosorbide Mononitrate [Isosorbide 60 mg PO DAILY 02/28/18 Mononitrate ER] Atorvastatin Calcium [Lipitor] 20 mg PO QHS 05/26/18 Carvedilol [Coreg] 25 mg PO BID 05/26/18 Loperamide HCl [Imodium A-D] 2 mg PO TID PRN 05/26/18 Pantoprazole Sodium [Protonix] 20 mg PO BID 05/26/18 Clopidogrel Bisulfate [Plavix] 75 mg PO DAILY 07/01/18 Surgical History: Surgical History (Last Updated 02/27/18 @ 10:29 by Pricila Olson) Stented coronary artery (Chronic) Onset Date: 02/26/18 Z95.5 FFR of LAD 0.82; VIKY of mid LAD with 2.5 X 24 mm Promus Synergy, OM <50% stenosis per Dr. Magdaleno @ [facility] S/P repair of PDA (patent ductus arteriosus) (Resolved) Z98.890, Z87.74 At young age Surgical History: appendectomy, hysterectomy - and BSO, - - c-sections, L breast I+D for abscess, fistula placement LUE, L ankle surgery, appendectomy, PDA re pair. Excision pilonidal cyst ulcer about 4 years ago. Colostomy placed due to rectal abscess/wound, patent ductus repair, drug-eluting stent placement left anterior descending coronary artery February 2018. 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 Tobacco Use: Cigarettes Alcohol: None Drugs: None - *Family History Maternal History Items: Cancer, COPD, Diabetes, Hypertension, Renal Disease, Stroke Paternal History Items: Diabetes Sibling History Items: Cancer, Diabetes Review of Systems Constitutional: Reports: Anorexia, Malaise, Weakness, Fatigue. Denies: Chills, Fever, Weight Change HEENT: Reports: Post Nasal Drip, Sinus Congestion, Sinus Drainage, Sore Throat. Denies: Head Aches Cardiovascular: Reports: Chest Pain, Chest Tightness. Denies: Palpitations Respiratory: Reports: Cough, Shortness of Breath, Shortness of breath at rest, Shortness of breath upon exertion, Sputum production Gastrointestinal: Denies: Abdominal Pain, Nausea, Vomiting Genitourinary: Denies: Dysuria Musculoskeletal: Reports: Back Pain. Denies: Joint Pain, Joint Tenderness Skin: Denies: Rash, Wounds Neurological: Denies: Focal weakness, Numbness, Tingling Psychiatric: Reports: Anxiety, Depression. Denies: Homicidal Ideations, Suicidal Ideations Hematologic/ Lymphatic: Reports: Anemia, Easy Bruising, Easy Bleeding VTE Information - Inpt Only VTE Present on Admission: No VTE Mechan Device Prophylaxis: SCD's VTE Pharm Prophylaxis ordered?: Yes Subjective: Seated upright in the bed, fatigued appearance, hoarse voice. Objective: Physical Examination: General: awake, alert, oriented x 3 and cooperative, seated upright in bed in no apparent distress, fatigued appearance. Skin: normal color, turgor, no icterus, cyanosis. HEENT: AT/NC, EOMI, PERRLA, mildly dry MM, no carotid bruits or JVD noted. Lungs: Diminished BS, > bases, mild effort, hoarse voice, harsh coughing, no rales, ronchi or wheezing. Heart: Regular rate and rhythm; no gallop, rub audible, reproducible chest discomfort, also patient notes worse with coughing fits. Abdomen: soft, obese, NTTP, ND, normal BS, no HSM. Extremities: no cyanosis, clubbing, or edema, AVF + thrill, TTP lumbar BL paraspinous muscles. Neurological: patient awake, alert, oriented x 3; cognitive function intact; pupils equally reactive to light and accomodation; cranial nerves II-XII grossly normal, moving all 4 extremities, no focal deficits, strength moderately globally decreased. Psychiatric: affect appears fatigued, flat, no acute evidence of depressive or anxiety feelings. - Physical Exam Body Mass Index (BMI) 32.7 Finger Stick Blood Glucose 118 Assessment/Plan All Active Problems (Last Updated 02/27/18 @ 10:29 by Pricila Olson) Nausea & vomiting (Resolved) Migraine (Resolved) Metabolic encephalopathy (Resolved) Chest pain (Acute) Tooth abscess (Resolved) Intractable nausea and vomiting (Resolved) Pneumonia (Resolved) Pulmonary edema (Resolved) Hyperkalemia (Resolved) Atypical chest pain (Resolved) Acute hypoxic respiratory failure (Resolved) Pulmonary edema (Resolved) Clostridium difficile enterocolitis (Resolved) Necrotizing myositis (Resolved) Nonischemic cardiomyopathy (Resolved) S/P repair of PDA (patent ductus arteriosus) (Resolved) Dysmenorrhea (Resolved) Hx of necrotizing fascIItis (Resolved) Iron deficiency anemia due to chronic blood loss (Resolved) Systolic congestive heart failure (Resolved) The patient is a 42 y/o F w/ PMHx: ESRD on HD T//Mon, Diabetes mellitus type II w/ Neuropathy and Gastroparesis, HTN, HLD, Tobacco use, Obesity, LV Diastolic Dysfx, Systolic CHF/Cardiomyopathy Unclear type, CAD s/p 2012 catheterization w/ mild LAD disease w/ medical therapy and 02/24/2018 catheterization w/ VIKY to LAD w/ medical management decision for mid obtuse marginal stenosis w/ follow-up dobutamine stress testing 04/17/18 which was negative for inducible ischemia, Anxiety and Depression, AOCD/Fe deficiency anemia, Tobacco use with recent URI symptoms, congestion, seen in the ED on 06/29/18 at [facility] w/ history of missing her dialysis secondary to feeling poorly with noted 4-day history of mildly productive cough of yellow sputum with concurrent mild dyspnea reporting a fever of up to 102 at home with additionally nausea in addition to fall noted to have slipped on the ice with ongoing mild lumbar back discomfort discharged to home with recommendation to follow-up with dialysis and actually have her dialysis performed in addition to URI as well as lumbar contusion secondary to recent fall prior w/ chest x-ray with mild overload consistent with missing dialysis otherwise no acute findings who now represents to the [facility] on 07/01/18 as direct transfer from [facility] ED secondary to worsening symptoms and onset, intermittent, waxing and waning, non-radiating, generalized chest tightness with the noted symptoms including mild dyspnea. (1) Chest Pain w/ indeterminate cardiac enzymes: Presentation w/ noted worsened discomfort with coughing but enzyme above noted prior enzymes. OSH ED evaluation w/ VS: T 36.8, BP 130/84, HR 94, RR 18, 93% on RA, CBC w/ WBC 6.3, Hgb 9.9, Plts 153 with mild L shift, BMP w/ Na 139, K 4.3, BUN/Cr 30/5.86, glucose 127, Trop 0.331 (higher than ever noted prior), EKG w/ T wave inversions inferiorly 2-3, aVF, more pronounced from prior, inverted T waves V5-6, CXR stable, unchanged from prior, Rapid Influenza: Negative.Will admit to PCU, place on a monitored bed to assure no acute myocardial infarction with serial cardiac enzymes and EKGs. ECHO requested. Mag pending. Cardiology consulted, pending, may decide on trending only. ASA, plavix, NG, morphine. (2) Recent URI, Bronchitis: Maintain on oxygen with wean as tolerated to room air, continue ATC duonebs, PRN albuterol, HOB, IS parameters, obtain viral respiratory panel. Supportive care. (3) CAD: s/p 2012 catheterization w/ mild LAD disease w/ medical therapy and 02/24/2018 catheterization w/ VIKY to LAD w/ medical management decision for mid obtuse marginal stenosis w/ follow-up dobutamine stress testing 04/17/18 which was negative for inducible ischemia, continue home regimen asa, plavix, statin, BB. (4) ESRD on HD: T, Th, Sat. Noted to have most recently been on day of prese ntation. Will consult Nephrology as possible catheterization which would require HD following. (5) Chronic systolic CHF, Cardiomyopathy Unclear Type, Diastolic DysFx, CAD: EF 45-50% w/ 05/2013 normal cardiac catheterization per Dr. Magdaleno, recent stress testing 04/17/18 which was negative for inducible ischemia, continue asa, BB, ACEI, statin. (6) Diabetes mellitus type II w/ Neuropathy, Gastroparesis: Continue home insulin regimen, ADA diet w/ NPO after midnight in case of cardiology intervention decision, accu checks w/ ISS. (7) Hypertension: Continue home regimen coreg, lisinopril, isosorbide, PRN hydralazine. (8) Hyperlipidemia: Continue home statin regimen. (9) Depression and Anxiety: Continue home Prozac, Xanax regimen. (10) Tobacco Abuse: Encouraged cessation, inpatient consultation per RT, NR if desired. (11) Obesity: Weight loss and lifestyle changes encouraged. (12) GERD: PPI. (13) AOCD: Admission Hgb 9.9, stable, trend. (14) Recent Mechanical Fall w/ Lumbar Strain, Contusion: BL paraspinous lumbar region muscle TTP, recommend position changes frequently, k-pad, conservative measures. (15) DVT Prophylaxis: SCDs, heparin. Code Visit OBSV E&M: [id number] Initial observation care L3
--- NOTE | 2018-07-01 14:26 | EKG12_ITS ---
Test Reason : DISRHYTHMIA Blood Pressure : / mmHG Vent. Rate : 086 BPM Atrial Rate : 086 BPM P-R Int : 128 ms QRS Dur : 092 ms QT Int : 404 ms P-R-T Axes : 063 060 251 degrees QTc Int : 483 ms Normal sinus rhythm T wave abnormality, consider inferolateral ischemia Prolonged QT Abnormal ECG When compared with ECG of 26-MAY-2018 13:30, T wave inversion now evident in Anterolateral leads Confirmed by DIVINA BEASLEY, SUSI ([id number]), editorial writer SHANIA SOLITARIO ([id number]) on 07/03/2018 9:04:54 AM Referred By: Rivka Charles Confirmed By:SUSI MURCIA MD
--- NOTE | 2018-07-01 14:26 | ECHOCS_ITS ---
Reason For Study: CAD/ASHD Procedure This was a 2D Doppler, Color Flow transthoracic echocardiogram. The study was technically difficult. Contrast injection was performed. Exam performed portable in patient room. Left Ventricle Moderately dilated left ventricle. The estimated ejection fraction is 45 %. Stage 2 diastolic dysfunction. There is moderate global hypokinesis of the left ventricle. Right Ventricle Normal size and thickness. Normal systolic function. Atria Normal left atrium. Normal right atrium. Normal atrial septum. Mitral Valve The mitral valve is structurally normal. No prolapse or stenosis seen. Mild (1+) mitral valve insufficiency. Tricuspid Valve Normal tricuspid valve. Trivial tricuspid valve insufficiency. Right ventricular systolic pressure estimated to be 22 mmHg. Aortic Valve Normal aortic valve. Trisinus/trileaflet aortic valve. Pulmonic Valve Normal pulmonic valve. Trivial pulmonic valve insufficiency. Great Vessels Normal aortic root. Normal arch. The inferior vena cava is dilated. Pericardium/Pleural No pericardial effusion. Medication Diluted definity 3ml given slow IV push to enhance endocardial definition. MMode/2D Measurements & Calculations LVIDd: 6.0 cm IVSd: 1.4 cm Ao root diam: 3.2 cm LVIDs: 4.5 cm LVPWd: 0.93 cm LA dimension: 3.8 cm FS: 24.8 % Time Measurements MV dec time: 0.10 sec Doppler Measurements & Calculations MV E max lópez: 106.2 cm/sec Med Peak E' López: 4.4 cm/sec MV V2 max: 125.3 cm/sec MV A max lópez: 38.4 cm/sec E/E' med: 24.0 MV max P.3 mmHg MV E/A: 2.8 MV V2 mean: 61.8 cm/sec MV mean P.0 mmHg MV V2 VTI: 24.2 cm MV P1/2t max lópez: 122.3 cm/sec Ao V2 max: 108.0 cm/sec LV V1 max: 99.2 cm/sec MV P1/2t: 66.9 msec Ao max P.7 mmHg LV V1 max P.9 mmHg Ao V2 mean: 66.5 cm/sec LV V1 mean P.7 mmHg MV dec slope: 535.2 cm/sec2 Ao mean P.1 mmHg LV V1 mean: 59.2 cm/sec MVA(P1/2t): 3.3 cm2 Ao V2 VTI: 16.6 cm LV V1 VTI: 18.3 cm MR max lópez: 473.4 cm/sec PA V2 max: 92.5 cm/sec TR max lópez: 208.4 cm/sec MR max P.6 mmHg TR max P.4 mmHg MR mean lópez: 359.1 cm/sec MR mean P.4 mmHg MR VTI: 153.4 cm Interpretation Summary Moderately dilated left ventricle. The estimated ejection fraction is 45 %. There is moderate global hypokinesis of the left ventricle. Stage 2 diastolic dysfunction. Mild (1+) mitral valve insufficiency. Trivial tricuspid valve insufficiency. Right ventricular systolic pressure estimated to be 22 mmHg. Compared to echo report dated 11/15/2017, no appreciable changes noted. The study was technically difficult. Contrast injection was performed. Ordering Physician: Rivka Charles Referring Physician: Rivka Charles Performed By: Anup Brush RCS
--- NOTE | 2018-07-01 15:14 | PCM.CONS.C ---
Reason for Consult Date of Consultation: 07/01/18 Reason for Consultation: Abnormal cardiac enzymes History of Present Illness: KOURTNEY REZA, is a 42 F who presents to the emergency room at [facility] today with a temperature of 102 through the night, malaise and chest discomfort during cough. She says that she has not had any angina and has not had any chest discomfort which is similar to what she had prior to having her stent. She was seen in the emergency room and an EKG was done which demonstrated T wave inversions and her troponin was mildly abnormal and therefore the [facility] was called and requested for a transfer. She has history of coronary artery disease status post PTCA/VIKY to mid LAD in February 2018, remote PDA repair, end-stage renal disease on hemodialysis on Tuesdays, , and Saturdays, anemia of chronic disease, nonischemic cardiomyopathy, diabetes, hypertension, hyperlipidemia, and gastroparesis. Of note is the fact that she had presented [facility] emergency department on February 24, 2018 with recurrent chest pain. She underwent a heart catheterization that resulted and PTCA/VIKY to mid LAD with recommendation of medical management for mid obtuse marginal #1. She was discharged home. She then presented to [facility] emergency department 02/28/18 days later for dizziness and hyperkalemia. She again presented to the ED on 03/06/18 for bleeding from fistula site. She presented to the ED again on 03/12/18 for nausea, vomiting, and diarrhea. She was also evaluated during an admission in April 2018. She had undergone a dobutamine stress echocardiogram with evidence of hypertensive response to dobutamine infusion but with no evidence of ischemia she was seen by the patient case manager her primary physician and medical therapy was once again recommended. Pt. denies arm, jaw, or neck discomfort. Her exercise tolerance is stable via walking 30 minutes a evening and water aerobics. Pt. denies symptoms of CHF, palpitations, lightheadedness, dizziness, near syncope, or syncopal episodes. Pt. denies edema or claudication issues. Pt. denies orthopnea, PND, fever, chills, blood in urine, blood in stool, myalgia, or unexplainable fatigue. At this particular time she appears to be doing well with no angina Past Medical History Allergies/Adverse Reactions: Allergies latex Allergy (Verified 12/07/18 14:21) Rash prochlorperazine [From Compazine] Allergy (Verified 06/29/18 14:21) Unknown levofloxacin [From Levaquin] Adverse Reaction (Verified 06/29/18 14:21) PT CAN'T REMEMBER PT CAN'T REMEMBER metoclopramide HCl [From Reglan] Adverse Reaction (Verified 06/29/18 14:21) Nausea NSAIDS (Non-Steroidal Anti-Inflamma Adverse Reaction (Verified 06/29/18 14:21) kidney function oxycodone HCl [From Percocet] Adverse Reaction (Verified 06/29/18 14:21) HALLUCINATIONS Home Medications: Ambulatory Orders Medication Instructions Recorded Aspirin [Aspirin, Baby] 81 mg PO DAILY@0800 01/26/16 Calcium Acetate [Phoslo Gel Cap] 1,334 mg PO TIDCM 01/26/16 Ergocalciferol [Vitamin D] 50,000 unit PO QWEEK 01/26/16 Insulin Aspart [Novolog Flexpen] 10 units SC TIDCM 01/26/16 Insulin Glargine,Hum.rec.anlog 4 unit SQ QHS 01/09/17 [Lantus] proMETHazine tablet [Phenergan 25 mg PO Q6H PRN PRN #10 tab 03/06/17 tablet] Lisinopril 40 mg PO DAILY 03/29/17 Sodium Bicarbonate 650 mg PO 4X/DAY 03/29/17 Omeprazole Magnesium [Prilosec Otc] 20 mg PO DAILY 02/08/18 Isosorbide Mononitrate [Isosorbide 60 mg PO DAILY 02/28/18 Mononitrate ER] Atorvastatin Calcium [Lipitor] 20 mg PO QHS 05/26/18 Carvedilol [Coreg] 25 mg PO BID 05/26/18 Loperamide HCl [Imodium A-D] 2 mg PO TID PRN 05/26/18 Pantoprazole Sodium [Protonix] 20 mg PO BID 05/26/18 Clopidogrel Bisulfate [Plavix] 75 mg PO DAILY 07/01/18 Past Medical History (Chronic Problems): Chronic Problems (Last Updated 02/27/18 @ 10:29 by Pricila Olson) CAD (coronary artery disease) (Chronic) Stented coronary artery (Chronic 02/26/18) FFR of LAD 0.82; VIKY of mid LAD with 2.5 X 24 mm Promus Synergy, OM <50% stenosis per Dr. Magdaleno @ [facility] Atherosclerotic heart disease of [place] coronary artery without angina pectoris (Chronic) S/P PTCA/VIKY to mid LAD in February 2018 OM #1 noted to be 50%; ESRD (end stage renal disease) on dialysis (Chronic) Decubitus ulcer, stage III (Chronic) Anemia, chronic disease (Chronic) Pilonidal cyst with abscess (Chronic) GABRIEL (obstructive sleep apnea) (Chronic) Depression (Chronic) Anxiety (Chronic) HTN (hypertension) (Chronic) Diabetes mellitus type 1 (Chronic) Hyperlipidemia (Chronic) Obesity (BMI 30.0-34.9) (Chronic) Gastroparesis (Chronic) Surgical History: appendectomy, hysterectomy - and BSO, - - c-sections, L breast I+D for abscess, fistula placement LUE, L ankle surgery, appendectomy, PDA repair. Excision pilonidal cyst ulcer about 4 years ago. Colostomy placed due to rectal abscess/wound, patent ductus repair, drug-eluting stent placement left anterior descending coronary artery February 2018. 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 Tobacco Use: Cigarettes Alcohol: None Drugs: None Review of Systems - Review of Systems General: Reports: Fever, Fatigue, Malaise, Chills. Denies: Night Sweats HEENT: Denies: Vision Change Cardiovascular: Denies: Chest Discomfort, Shortness of Breath, Orthopnea, PND, Peripheral Edema, Palpitations, Lightheadedness, Dizziness, Near Syncope, Syncope Respiratory: Denies: Cough, Sputum Production, Hemoptysis Gastrointestinal: Denies: Indigestion, Hematemesis, Hematochezia, Melena Genitourinary: Denies: Dysuria, Hematuria Skin: Denies: Rash Neurological: Denies: Dizziness Psychiatric: Denies: Anxiety Endocrine: Denies: Unexplained Weight Loss Hematologic/ Lymphatic: Denies: Anemia Subjectve: Pleasant lady in no apparent distress Objective: Vital Signs Temp Pulse Resp BP Pulse Ox 98.4 F 94 18 141/67 H 94 07/01/18 14:19 07/01/18 15:07 07/01/18 14:19 07/01/18 14:19 07/01/18 14:19 Oxygen Delivery Method Room Air Weight: 195 lb 1.745 oz Body Mass Index (BMI) 31.4 Finger Stick Blood Glucose 118 General: Awake, Alert, Oriented x 3 HEENT: PERRL, EOMI, Sclera Non Icteric Neck: Supple, Good ROM, No Lymph Node Enlargement Lungs: Clear to auscultation Cardiovascular: Regular Rhythm, Normal S1, Normal S2, No Murmurs, No Rubs, No Gallops Vascular: No Carotid Bruits, Normal Femoral Pulses, Normal Radial Pulses, Normal Dorsalis Pedal Pulse, Normal Posterior Tibial Pulses Abdomen: Bowel Sounds Present, Soft, Non Tender, No HSM, No Organomegaly Extremities: No Cyanosis, No Clubbing, No edema Musculoskeletal: No Erythema Lymphatic: No Lymph Node Enlargement Neurological: No Focal Motor or Sensory Deficit Psych/Mental Status: Appropriate 07/01/18 14:40: Magnesium 2.0, Troponin I 0.315 H Rhythm: EKG: Normal sinus rhythm with lateral T wave inversions Assessment/Plan 1. Coronary artery disease: The patient presents with atypical non-exertional bronchitis related chest pain. In addition she had a fever within the last 24 hours with a temperature of 102. She says this pain is very similar to what she had prior to her angioplasty in 2018. Patient underwent a dobutamine echocardiogram in March 2018 which was negative for inducible ischemia, but did have a hypertensive blood pressure response to dobutamine. Patient also has a history of microvascular coronary artery disease and gets chest pain with significant hypertension. In addition I recommend continuing her aspirin, Plavix, Imdur for hypertension. Her last dobutamine echocardiogram less than 2 months ago was negative for inducible ischemia. I reviewed her catheterization films and she had an excellent outcome of her LAD stent, and her left circumflex vessels are too small for stenting. Would not recommend repeat catheterization at this time. Though her troponins are mildly abnormal I suspect this is secondary to demand ischemia as well as microvascular disease. Unless there is a significant rise in her troponins further I would continue with aggressive medical therapy. She does of course have significant renal dysfunction on dialysis. 2. Hyperlipidemia: Continue Lipitor therapy. Thank you for allowing me to participate in the care of your patient. Please don't hesitate to call if any issues arise
--- NOTE | 2018-07-01 15:18 | CON.PCM_ITS ---
Reason for Consult Date of Consultation: 07/01/18 Reason for Consultation: Abnormal cardiac enzymes History of Present Illness: KOURTNEY REZA, is a 42 F who presents to the emergency room at [facility] today with a temperature of 102 through the night, malaise and chest discomfort during cough. She says that she has not had any angina and has not had any chest discomfort which is similar to what she had prior to having her stent. She was seen in the emergency room and an EKG was done which demonstrated T wave inversions and her troponin was mildly abnormal and therefore the [facility] was called and requested for a transfer. She has history of coronary artery disease status post PTCA/VIKY to mid LAD in February 2018, remote PDA repair, end-stage renal disease on hemodialysis on Tuesdays, , and Saturdays, anemia of chronic disease, nonischemic cardiomyopathy, diabetes, hypertension, hyperlipidemia, and gastroparesis. Of note is the fact that she had presented [facility] emergency department on February 24, 2018 with recurrent chest pain. She underwent a heart catheterization that resulted and PTCA/VIKY to mid LAD with recommendation of medical management for mid obtuse marginal #1. She was discharged home. She then presented to [facility] emergency department 02/28/18 days later for dizziness and hyperkalemia. She again presented to the ED on 03/06/18 for bleeding from fistula site. She presented to the ED again on 03/12/18 for nausea, vomiting, and diarrhea. She was also evaluated during an admission in April 2018. She had undergone a dobutamine stress echocardiogram with evidence of hypertensive response to dobutamine infusion but with no evidence of ischemia she was seen by the wire rope fabrication supervisor her primary physician and medical therapy was once again recommended. Pt. denies arm, jaw, or neck discomfort. Her exercise tolerance is stable via walking 30 minutes a evening and water aerobics. Pt. denies symptoms of CHF, palpitations, lightheadedness, dizziness, near syncope, or syncopal episodes. Pt. denies edema or claudication issues. Pt. denies orthopnea, PND, fever, chills, blood in urine, blood in stool, myalgia, or unexplainable fatigue. At this particular time she appears to be doing well with no angina Past Medical History Allergies/Adverse Reactions: Allergies latex Allergy (Verified 12/07/18 14:21) Rash prochlorperazine [From Compazine] Allergy (Verified 06/29/18 14:21) Unknown levofloxacin [From Levaquin] Adverse Reaction (Verified 06/29/18 14:21) PT CAN'T REMEMBER PT CAN'T REMEMBER metoclopramide HCl [From Reglan] Adverse Reaction (Verified 06/29/18 14:21) Nausea NSAIDS (Non-Steroidal Anti-Inflamma Adverse Reaction (Verified 06/29/18 14:21) kidney function oxycodone HCl [From Percocet] Adverse Reaction (Verified 06/29/18 14:21) HALLUCINATIONS Home Medications: Ambulatory Orders Medication Instructions Recorded Aspirin [Aspirin, Baby] 81 mg PO DAILY@0800 01/26/16 Calcium Acetate [Phoslo Gel Cap] 1,334 mg PO TIDCM 01/26/16 Ergocalciferol [Vitamin D] 50,000 unit PO QWEEK 01/26/16 Insulin Aspart [Novolog Flexpen] 10 units SC TIDCM 01/26/16 Insulin Glargine,Hum.rec.anlog 4 unit SQ QHS 01/09/17 [Lantus] proMETHazine tablet [Phenergan 25 mg PO Q6H PRN PRN #10 tab 03/06/17 tablet] Lisinopril 40 mg PO DAILY 03/29/17 Sodium Bicarbonate 650 mg PO 4X/DAY 03/29/17 Omeprazole Magnesium [Prilosec Otc] 20 mg PO DAILY 02/08/18 Isosorbide Mononitrate [Isosorbide 60 mg PO DAILY 02/28/18 Mononitrate ER] Atorvastatin Calcium [Lipitor] 20 mg PO QHS 05/26/18 Carvedilol [Coreg] 25 mg PO BID 05/26/18 Loperamide HCl [Imodium A-D] 2 mg PO TID PRN 05/26/18 Pantoprazole Sodium [Protonix] 20 mg PO BID 05/26/18 Clopidogrel Bisulfate [Plavix] 75 mg PO DAILY 07/01/18 Past Medical History (Chronic Problems): Chronic Problems (Last Updated 02/27/18 @ 10:29 by Pricila Olson) CAD (coronary artery disease) (Chronic) Stented coronary artery (Chronic 02/26/18) FFR of LAD 0.82; VIKY of mid LAD with 2.5 X 24 mm Promus Synergy, OM <50% stenosis per Dr. Magdaleno @ [facility] Atherosclerotic heart disease of [place] coronary artery without angina pectoris (Chronic) S/P PTCA/VIKY to mid LAD in February 2018 OM #1 noted to be 50%; ESRD (end stage renal disease) on dialysis (Chronic) Decubitus ulcer, stage III (Chronic) Anemia, chronic disease (Chronic) Pilonidal cyst with abscess (Chronic) GABRIEL (obstructive sleep apnea) (Chronic) Depression (Chronic) Anxiety (Chronic) HTN (hypertension) (Chronic) Diabetes mellitus type 1 (Chronic) Hyperlipidemia (Chronic) Obesity (BMI 30.0-34.9) (Chronic) Gastroparesis (Chronic) Surgical History: appendectomy, hysterectomy - and BSO, - - c-sections, L breast I+D for abscess, fistula placement LUE, L ankle surgery, appendectomy, PDA repair. Excision pilonidal cyst ulcer about 4 years ago. Colostomy placed due to rectal abscess/wound, patent ductus repair, drug-eluting stent placement left anterior descending coronary artery February 2018. 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 Tobacco Use: Cigarettes Alcohol: None Drugs: None Review of Systems - Review of Systems General: Reports: Fever, Fatigue, Malaise, Chills. Denies: Night Sweats HEENT: Denies: Vision Change Cardiovascular: Denies: Chest Discomfort, Shortness of Breath, Orthopnea, PND, Peripheral Edema, Palpitations, Lightheadedness, Dizziness, Near Syncope, Syncope Respiratory: Denies: Cough, Sputum Production, Hemoptysis Gastrointestinal: Denies: Indigestion, Hematemesis, Hematochezia, Melena Genitourinary: Denies: Dysuria, Hematuria Skin: Denies: Rash Neurological: Denies: Dizziness Psychiatric: Denies: Anxiety Endocrine: Denies: Unexplained Weight Loss Hematologic/ Lymphatic: Denies: Anemia Subjectve: Pleasant lady in no apparent distress Objective: Vital Signs Temp Pulse Resp BP Pulse Ox 98.4 F 94 18 141/67 H 94 07/01/18 14:19 07/01/18 15:07 07/01/18 14:19 07/01/18 14:19 07/01/18 14:19 Oxygen Delivery Method Room Air Weight: 195 lb 1.745 oz Body Mass Index (BMI) 31.4 Finger Stick Blood Glucose 118 General: Awake, Alert, Oriented x 3 HEENT: PERRL, EOMI, Sclera Non Icteric Neck: Supple, Good ROM, No Lymph Node Enlargement Lungs: Clear to auscultation Cardiovascular: Regular Rhythm, Normal S1, Normal S2, No Murmurs, No Rubs, No Gallops Vascular: No Carotid Bruits, Normal Femoral Pulses, Normal Radial Pulses, Normal Dorsalis Pedal Pulse, Normal Posterior Tibial Pulses Abdomen: Bowel Sounds Present, Soft, Non Tender, No HSM, No Organomegaly Extremities: No Cyanosis, No Clubbing, No edema Musculoskeletal: No Erythema Lymphatic: No Lymph Node Enlargement Neurological: No Focal Motor or Sensory Deficit Psych/Mental Status: Appropriate 07/01/18 14:40: Magnesium 2.0, Troponin I 0.315 H Rhythm: EKG: Normal sinus rhythm with lateral T wave inversions Assessment/Plan 1. Coronary artery disease: The patient presents with atypical non-exertional bronchitis related chest pain. In addition she had a fever within the last 24 hours with a temperature of 102. She says this pain is very similar to what she had prior to her angioplasty in 2018. Patient underwent a dobutamine echocardiogram in March 2018 which was negative for inducible ischemia, but did have a hypertensive blood pressure response to dobutamine. Patient also has a history of microvascular coronary artery disease and gets chest pain with significant hypertension. * In addition I recommend continuing her aspirin, Plavix, Imdur for hypertension. Her last dobutamine echocardiogram less than 2 months ago was negative for inducible ischemia. I reviewed her catheterization films and she had an excellent outcome of her LAD stent, and her left circumflex vessels are too small for stenting. Would not recommend repeat catheterization at this time. * Though her troponins are mildly abnormal I suspect this is secondary to demand ischemia as well as microvascular disease. Unless there is a significant rise in her troponins further I would continue with aggressive medical therapy. She does of course have significant renal dysfunction on dialysis. 2. Hyperlipidemia: Continue Lipitor therapy. Thank you for allowing me to participate in the care of your patient. Please don't hesitate to call if any issues arise
[2018-07-01 15:41] LABS: Phosphorus 5.9 mg/dL (2.5-4.9)
[2018-07-01] MEDS: Ipratropium/Albuterol Sulfate 3 ML AMPUL.NEB INHALATION ×2 (15:45→19:09)
[2018-07-01] MEDS: Erythromycin Base 1 OPTH.TUBE 1 APPLIC RIGHT EYE ×2 (17:24→22:04)
[2018-07-01] MEDS: Insulin Lispro 100 UNIT/ML INSULN.PEN 10 UNIT SC (17:25)
[2018-07-01] MEDS: Sodium Bicarbonate 650 MG Tablet PO ×2 (17:26→22:05)
[2018-07-01] MEDS: Calcium Acetate 667 MG Capsule 1334 MG PO (17:26)
[2018-07-01] MEDS: Acetaminophen 325 MG Tablet 650 MG PO ×2 (17:27→23:45)
[2018-07-01 17:46] LABS: Bedside Glucose 216 mg/dL (70-110)
[2018-07-01] MEDS: guaiFENesin 1,200 MG Tablet 1200 MG PO (22:05)
[2018-07-01] MEDS: Atorvastatin Calcium 20 MG Tablet PO (22:05)
[2018-07-01] MEDS: Pantoprazole Sodium 20 MG Tablet PO (22:05)
[2018-07-01] MEDS: Carvedilol 25 MG Tablet PO (22:05)
[2018-07-01] MEDS: Heparin Injection (Vial) 5,000 UNIT/ML VIAL 5000 UNIT SC (22:05)
[2018-07-01 22:11] LABS: Bedside Glucose 194 mg/dL (70-110)
[2018-07-01] MEDS: Ondansetron 4 MG/2 ML Vial IV (22:13)
[2018-07-01] MEDS: 0.9% NaCl Peripheral Flush Adult/Peds IV (22:14)
[2018-07-02] VITALS (15 sets, daily range): BP systolic 104–142; BP diastolic 48–86; PULSE 75–106; RESP 16–20; TEMP 36.9–37; O2SAT 91–98
[2018-07-02] MEDS: 0.9% NaCl Peripheral Flush Adult/Peds IV ×4 (04:47→16:29)
[2018-07-02] MEDS: proMETHazine 25 MG/ML Syringe 12.5 MG IV ×2 (04:47→16:30)
--- NOTE | 2018-07-02 05:55 | EKG12_ITS ---
Test Reason : AM EKG Blood Pressure : / mmHG Vent. Rate : 078 BPM Atrial Rate : 078 BPM P-R Int : 136 ms QRS Dur : 084 ms QT Int : 422 ms P-R-T Axes : 035 059 240 degrees QTc Int : 481 ms Normal sinus rhythm ST & T wave abnormality, consider inferior ischemia ST & T wave abnormality, consider anterolateral ischemia Prolonged QT Abnormal ECG Confirmed by DIVINA BEASLEY, SUSI ([id number]), commercial production editor SHANIA SOLITARIO ([id number] on 07/03/2018 9:03:23 AM Referred By: Rivka Charles Confirmed By:SUSI MURCIA MD
[2018-07-02 06:19] LABS: Absolute Lymphocyte Count 0.58 X10^3/ul (0.83-4.51); Absolute Neutrophil Count 4.6 X10^3/uL (2.0-7.7); Basophil# 0.01 X10^3/uL; Basophil% 0.2 % (0-1); Eosinophil# 0.18 X10^3/uL; Eosinophils% 3.1 % (0-5); Hematocrit 29.7 % (37-47); Hemoglobin 8.8 g/dl (12.0-15.0); International Normalized Ratio 1.3; Lymphocyte # 0.58 X10^3/ul (4.0); Lymphocyte % 10.1 % (19-41); Mean Corp Hgb Conc 29.6 g/gl (32-36); Mean Corpuscular Volume 104.6 fL (81-99); Mean Platelet Vol. 9.1 fl (6.2-12.0); Monocyte# 0.29 X10^3/uL; Monocyte% 5.1 % (0-10); Neutrophil # 4.64 X10^3/uL (2.7-7.7); Neutrophil % 81.2 % (47-70); Platelet Count 131 K/mm3 (150-450); RBC Distribution Width CV 17.1 % (11.6-14.6); RBC Distribution Width SD 62.4 fl (35.1-43.9); Red Blood Count 2.84 M/mm3 (4.2-5.4); White Blood Count 5.7 K/mm3 (4.4-11.0)
[2018-07-02 06:20] LABS: Partial Thromboplast Time 36.9 Seconds (24.1-36.2)
[2018-07-02 06:25] LABS: Differential Indicated SCAN CRITERIA MET; POSITIVE COUNT NO; POSITIVE DIFFERENTIAL YES; POSITIVE MORPHOLOGY NO
[2018-07-02] MEDS: Acetaminophen 325 MG Tablet 650 MG PO (06:30)
[2018-07-02 06:36] LABS: Anion Gap 10 (5-15); BUN 52 mg/dL (7-18); BUN/Creat Ratio 7.3 RATIO (10-20); Calcium,Total 8.2 mg/dL (8.5-10.1); Chloride 96 mmol/L (98-107); Cholesterol 101 mg/dL (200); Creatinine, Serum 7.15 mg/dL (0.55-1.02); EST Glomerular Filtration Rate 7 mL/min (>60); Est Glom Filt Rate - Afr Amer 8 mL/min (>60); Glucose 156 mg/dL (74-106); High Density Lipoprotein 38 mg/dL; Potassium 4.6 mmol/L (3.5-5.1); Sodium Level 137 mmol/L (136-145); Triglycerides 58 mg/dL; Very Low Density Lipoprotein 12 mg/dL (5-40)
[2018-07-02] MEDS: Ipratropium/Albuterol Sulfate 3 ML AMPUL.NEB INHALATION ×4 (06:51→18:55)
[2018-07-02 07:21] LABS: Bedside Glucose 168 mg/dL (70-110)
[2018-07-02] MEDS: Aspirin 81 MG TAB.CHEW PO (08:08)
[2018-07-02] MEDS: Insulin Lispro 100 UNIT/ML INSULN.PEN 10 UNIT SC ×3 (08:08→16:30)
[2018-07-02] MEDS: Calcium Acetate 667 MG Capsule 1334 MG PO ×3 (08:08→16:29)
--- NOTE | 2018-07-02 08:41 | PCM.CONS.R ---
Problem List (1) ESRD (end stage renal disease) on dialysis Status: Chronic Consultation - Renal PCP/ Referring MD: Requesting physician: [] Primary care physician: Christopher Foy - History of Present Illness History of Present Illness: The patient is a 42 year old F past medical history of end-stage renal disease on Monday schedule for hemodialysis , diabetes , hypertension , coronary artery disease , hyperlipidemia . Patient presented with worsening chest pain with some dyspnea . Patient has recent dobutamine stress test which was negative for ischemia Pt also has been complaining of SOB .cough and fever for 4-5 days. Renal team was consulted for end-stage renal disease management . Patient had last session of hemodialysis and June 30 . Cardiology service was consulted and there is no plan for intervention . : Review of system . 12 system review is negative except what mentioned in HPI.[] - Allergies Allergies: Allergies latex Allergy (Verified 06/29/18 14:21) Rash prochlorperazine [From Compazine] Allergy (Verified 06/29/18 14:21) Unknown levofloxacin [From Levaquin] Adverse Reaction (Verified 06/29/18 14:21) PT CAN'T REMEMBER PT CAN'T REMEMBER metoclopramide HCl [From Reglan] Adverse Reaction (Verified 06/29/18 14:21) Nausea NSAIDS (Non-Steroidal Anti-Inflamma Adverse Reaction (Verified 06/29/18 14:21) kidney function oxycodone HCl [From Percocet] Adverse Reaction (Verified 06/29/18 14:21) HALLUCINATIONS - Current Medications Current Medications: Current Medications Acetaminophen (Tylenol) 650 mg PO Q6H PRN PRN PRN Reason: Non-cardiac pain (mod-severe) Last Admin: 07/02/18 06:30 Dose: 650 mg Al Hydroxide/Mg Hydroxide (Mylanta Ii) 30 ml PO Q6H PRN PRN PRN Reason: Gastric burning Albuterol Sulfate (Ventolin Aerosols) 2.5 mg INHALATION Q2H PRN PRN PRN Reason: dyspnea, wheezing Albuterol/Ipratropium (Duoneb) 3 ml INHALATION Q4HWA.RT [facility] Last Admin: 07/02/18 06:51 Dose: 3 ml Aspirin (Aspirin, Baby) 81 mg PO DAILY@0800 [facility] Last Admin: 07/02/18 08:08 Dose: 81 mg Atorvastatin Calcium (Lipitor) 20 mg PO QHS [facility] Last Admin: 07/01/18 22:05 Dose: 20 mg Calcium Acetate (Phoslo Gel Cap) 1,334 mg PO TIDCM [facility] Last Admin: 07/02/18 08:08 Dose: 1,334 mg Carvedilol (Coreg) 25 mg PO BID [facility] Last Admin: 07/01/18 22:05 Dose: 25 mg Clopidogrel Bisulfate (Plavix) 75 mg PO DAILY [facility] Ergocalciferol (Vitamin D) 50,000 unit PO QWEEK [facility] Erythromycin () 1 applic RIGHT EYE 4X/DAY [facility] Last Admin: 07/01/18 22:04 Dose: 1 applic Guaifenesin (Mucinex) 1,200 mg PO BID [facility] Last Admin: 07/01/18 22:05 Dose: 1,200 mg Heparin Sodium (Porcine) (Heparin Na) 5,000 unit SC Q12 [facility] Last Admin: 07/01/18 22:05 Dose: 5,000 unit Hydralazine HCl (Apresoline Iv) 10 mg IV Q4H PRN PRN PRN Reason: SBP > 160 Insulin Glargine (Lantus (Bkc)) 4 units SC QHS [facility] Last Admin: 07/01/18 22:13 Dose: 4 u Insulin Human Lispro (Humalog Kwikpen ([facility])) 10 unit SC TIDCM [facility] Last Admin: 07/02/18 08:08 Dose: 10 u Isosorbide Mononitrate (Imdur) 60 mg PO DAILY [facility] Lisinopril (Zestril) 40 mg PO DAILY [facility] Loperamide HCl (Imodium) 2 mg PO TID PRN PRN Reason: STOOLING Magnesium Hydroxide (Milk Of Magnesia) 30 ml PO DAILY PRN PRN Reason: Constipation Nicotine (Nicoderm Cq (Pbkc)) 14 mg TRANSDERM. DAILY [facility] Last Admin: 07/01/18 17:25 Dose: 14 mg Ondansetron HCl (Zofran) 4 mg IV Q8H PRN PRN PRN Reason: NAUSEA Last Admin: 07/01/18 22:13 Dose: 4 mg Pantoprazole Sodium (Protonix) 20 mg PO BID [facility] Last Admin: 07/01/18 22:05 Dose: 20 mg Promethazine HCl (Phenergan) 12.5 mg IV Q6H PRN PRN PRN Reason: NAUSEA/VOMITING Last Admin: 07/02/18 04:47 Dose: 12.5 mg Sodium Bicarbonate (Sodium Bicarbonate) 650 mg PO 4X/DAY [facility] Last Admin: 07/01/18 22:05 Dose: 650 mg Sodium Chloride () 5 - 15 ml IV UD PRN PRN Reason: SALINE FLUSH Last Admin: 07/02/18 04:47 Dose: 10 ml - Past Medical History Past Medical History (Chronic Problems): Chronic Problems (Last Updated 02/27/18 @ 10:29 by Pricila Olson) CAD (coronary artery disease) (Chronic) Stented coronary artery (Chronic 02/26/18) FFR of LAD 0.82; VIKY of mid LAD with 2.5 X 24 mm Promus Synergy, OM <50% stenosis per Dr. Magdaleno @ [facility] Atherosclerotic heart disease of [place] coronary artery without angina pectoris (Chronic) S/P PTCA/VIKY to mid LAD in February 2018 OM #1 noted to be 50%; ESRD (end stage renal disease) on dialysis (Chronic) Decubitus ulcer, stage III (Chronic) Anemia, chronic disease (Chronic) Pilonidal cyst with abscess (Chronic) GABRIEL (obstructive sleep apnea) (Chronic) Depression (Chronic) Anxiety (Chronic) HTN (hypertension) (Chronic) Diabetes mellitus type 1 (Chronic) Hyperlipidemia (Chronic) Obesity (BMI 30.0-34.9) (Chronic) Gastroparesis (Chronic) - Past Surgical History Surgical History: appendectomy, hysterectomy - and BSO, - - c-sections, L breast I+D for abscess, fistula placement LUE, L ankle surgery, appendectomy, PDA repair. Excision pilonidal cyst ulcer about 4 years ago. Colostomy placed due to rectal abscess/wound, patent ductus repair, drug-eluting stent placement left anterior descending coronary artery February 2018. - Social History Smoking Status: Current some day smoker Alcohol: None Drugs: None - Family History Maternal History Items: Cancer, COPD, Diabetes, Hypertension, Renal Disease, Stroke Paternal History Items: Diabetes Sibling History Items: Cancer, Diabetes - Physical Exam General: Alert, Oriented x3 HEENT: Atraumatic Oral: Moist Mucosa Neck: Supple, No JVD Lungs: Clear to auscultation Cardiovascular: Regular rate, Regular Rhythm, Normal S1 Abdomen: Bowel Sounds Present, Soft, Non Tender Extremities: No clubbing, No cyanosis, No edema Skin: No rashes Musculoskeletal: No Tenderness to Palpation of Joints or Extremities Lymphatic: No Cervical, Supraclavicular, or Inguinal Adenopathy Neurological: Cranial nerves II-XII grossly intact, Neuro grossly intact Psych/Mental Status: Normal Affect Vital Signs Temp Pulse Resp BP Pulse Ox 98.6 F 89 16 142/86 H 97 07/02/18 06:27 07/02/18 07:00 07/02/18 06:51 07/02/18 06:27 07/02/18 06:51 Oxygen Flow Rate (L/min) 2 Oxygen Delivery Method Room Air Weight: 88.5 kg Body Mass Index (BMI) 31.4 Finger Stick Blood Glucose 118 Intake and Output for Last 24 Hours 06/30/18 07/01/18 07/02/18 23:59 23:59 23:59 Intake Total 720 / 720 Balance 720 / 720 Laboratory Tests Past 24 Hrs 07/01/18 07/01/18 07/01/18 14:40 14:40 17:36 WBC RBC Hgb Hct MCV MCH MCHC RDW RDW Differential Plt Count MPV Immature Gran % (Auto) Neut % (Auto) Lymph % (Auto) [place] % (Auto) Eos % (Auto) Baso % (Auto) Absolute Neuts (auto) Absolute Lymphs (auto) Total Counted PT INR APTT Sodium Potassium Chloride Carbon Dioxide Anion Gap BUN Creatinine Estim Creat Clear Calc Est GFR (MDRD) Af Amer Est GFR (MDRD) Non-Af BUN/Creatinine Ratio Glucose Calcium Phosphorus 5.9 H Magnesium 2.0 Troponin I 0.315 H 0.283 H Triglycerides Cholesterol LDL Cholesterol VLDL Cholesterol HDL Cholesterol 07/01/18 07/02/18 07/02/18 20:36 05:45 05:45 WBC 5.7 RBC 2.84 L Hgb 8.8 L Hct 29.7 L MCV 104.6 H MCH 31.0 MCHC 29.6 L RDW 17.1 H RDW Differential 62.4 H Plt Count 131 L MPV 9.1 Immature Gran % (Auto) 0.300 Neut % (Auto) 81.2 H Lymph % (Auto) 10.1 L [place] % (Auto) 5.1 Eos % (Auto) 3.1 Baso % (Auto) 0.2 Absolute Neuts (auto) 4.6 Absolute Lymphs (auto) 0.58 L Total Counted Not Reportable PT 16.0 H INR 1.3 APTT 36.9 H Sodium Potassium Chloride Carbon Dioxide Anion Gap BUN Creatinine Estim Creat Clear Calc Est GFR (MDRD) Af Amer Est GFR (MDRD) Non-Af BUN/Creatinine Ratio Glucose Calcium Phosphorus Magnesium Troponin I 0.274 H Triglycerides Cholesterol LDL Cholesterol VLDL Cholesterol HDL Cholesterol 07/02/18 05:45 WBC RBC Hgb Hct MCV MCH MCHC RDW RDW Differential Plt Count MPV Immature Gran % (Auto) Neut % (Auto) Lymph % (Auto) [place] % (Auto) Eos % (Auto) Baso % (Auto) Absolute Neuts (auto) Absolute Lymphs (auto) Total Counted PT INR APTT Sodium 137 Potassium 4.6 Chloride 96 L Carbon Dioxide 31.0 Anion Gap 10 BUN 52 H Creatinine 7.15 H Estim Creat Clear Calc 9.40 Est GFR (MDRD) Af Amer 8 L Est GFR (MDRD) Non-Af 7 L BUN/Creatinine Ratio 7.3 L Glucose 156 H Calcium 8.2 L Phosphorus Magnesium Troponin I Triglycerides 58 Cholesterol 101 LDL Cholesterol 51 VLDL Cholesterol 12 HDL Cholesterol 38 L POC Glucose 07/02/18 07/01/18 07/01/18 06:32 21:59 17:21 POC Glucose 168 H 194 H 216 H Assessment/Plan All Active Problems (Last Updated 02/27/18 @ 10:29 by Pricila Olson) Nausea & vomiting (Resolved) Migraine (Resolved) Metabolic encephalopathy (Resolved) Chest pain (Acute) Tooth abscess (Resolved) Intractable nausea and vomiting (Resolved) Pneumonia (Resolved) Pulmonary edema (Resolved) Hyperkalemia (Resolved) Atypical chest pain (Resolved) Acute hypoxic respiratory failure (Resolved) Pulmonary edema (Resolved) Clostridium difficile enterocolitis (Resolved) Necrotizing myositis (Resolved) Nonischemic cardiomyopathy (Resolved) S/P repair of PDA (patent ductus arteriosus) (Resolved) Dysmenorrhea (Resolved) Hx of necrotizing fascIItis (Resolved) Iron deficiency anemia due to chronic blood loss (Resolved) Systolic congestive heart failure (Resolved) 1-end-stage renal disease. On TTS schedule for hemodialysis. Patient goes to [facility]. Last hemodialysis was June 30. No need for hemodialysis today. Will arrange hemodialysis session tomorrow as per the chronic order. HD access is LUE AVF 2-hypertension: Blood pressure is well controlled. Please continue the same doses of Coreg, isosorbide nitrate, lisinopril. 3-bone mineral disease. Continue PhosLo 1300 mg 3 times daily with meals. Check phosphorus level. 4-chest pain: Cardiology service on board. 5- URI infection. work up and symptomatic treatment as per the primary service Thank you for the consult. We will continue to follow
--- NOTE | 2018-07-02 08:46 | CON.PCM_ITS ---
Problem List (1) ESRD (end stage renal disease) on dialysis Status: Chronic Consultation - Renal PCP/ Referring MD: Requesting physician: [] Primary care physician: Christopher Foy - History of Present Illness History of Present Illness: The patient is a 42 year old F past medical history of end-stage renal disease on Monday schedule for hemodialysis , diabetes , hypertension , coronary artery disease , hyperlipidemia . Patient presented with worsening chest pain with some dyspnea . Patient has recent dobutamine stress test which was negative for ischemia Pt also has been complaining of SOB .cough and fever for 4-5 days. Renal team was consulted for end-stage renal disease management . Patient had last session of hemodialysis and June 30 . Cardiology service was consulted and there is no plan for intervention . : Review of system . 12 system review is negative except what mentioned in HPI.[] - Allergies Allergies: Allergies latex Allergy (Verified 06/29/18 14:21) Rash prochlorperazine [From Compazine] Allergy (Verified 06/29/18 14:21) Unknown levofloxacin [From Levaquin] Adverse Reaction (Verified 06/29/18 14:21) PT CAN'T REMEMBER PT CAN'T REMEMBER metoclopramide HCl [From Reglan] Adverse Reaction (Verified 06/29/18 14:21) Nausea NSAIDS (Non-Steroidal Anti-Inflamma Adverse Reaction (Verified 06/29/18 14:21) kidney function oxycodone HCl [From Percocet] Adverse Reaction (Verified 06/29/18 14:21) HALLUCINATIONS - Current Medications Current Medications: Current Medications Acetaminophen (Tylenol) 650 mg PO Q6H PRN PRN PRN Reason: Non-cardiac pain (mod-severe) Last Admin: 07/02/18 06:30 Dose: 650 mg Al Hydroxide/Mg Hydroxide (Mylanta Ii) 30 ml PO Q6H PRN PRN PRN Reason: Gastric burning Albuterol Sulfate (Ventolin Aerosols) 2.5 mg INHALATION Q2H PRN PRN PRN Reason: dyspnea, wheezing Albuterol/Ipratropium (Duoneb) 3 ml INHALATION Q4HWA.RT [facility] Last Admin: 07/02/18 06:51 Dose: 3 ml Aspirin (Aspirin, Baby) 81 mg PO DAILY@0800 [facility] Last Admin: 07/02/18 08:08 Dose: 81 mg Atorvastatin Calcium (Lipitor) 20 mg PO QHS [facility] Last Admin: 07/01/18 22:05 Dose: 20 mg Calcium Acetate (Phoslo Gel Cap) 1,334 mg PO TIDCM [facility] Last Admin: 07/02/18 08:08 Dose: 1,334 mg Carvedilol (Coreg) 25 mg PO BID [facility] Last Admin: 07/01/18 22:05 Dose: 25 mg Clopidogrel Bisulfate (Plavix) 75 mg PO DAILY [facility] Ergocalciferol (Vitamin D) 50,000 unit PO QWEEK [facility] Erythromycin () 1 applic RIGHT EYE 4X/DAY [facility] Last Admin: 07/01/18 22:04 Dose: 1 applic Guaifenesin (Mucinex) 1,200 mg PO BID [facility] Last Admin: 07/01/18 22:05 Dose: 1,200 mg Heparin Sodium (Porcine) (Heparin Na) 5,000 unit SC Q12 [facility] Last Admin: 07/01/18 22:05 Dose: 5,000 unit Hydralazine HCl (Apresoline Iv) 10 mg IV Q4H PRN PRN PRN Reason: SBP > 160 Insulin Glargine (Lantus (Bkc)) 4 units SC QHS [facility] Last Admin: 07/01/18 22:13 Dose: 4 u Insulin Human Lispro (Humalog Kwikpen ([facility])) 10 unit SC TIDCM [facility] Last Admin: 07/02/18 08:08 Dose: 10 u Isosorbide Mononitrate (Imdur) 60 mg PO DAILY [facility] Lisinopril (Zestril) 40 mg PO DAILY [facility] Loperamide HCl (Imodium) 2 mg PO TID PRN PRN Reason: STOOLING Magnesium Hydroxide (Milk Of Magnesia) 30 ml PO DAILY PRN PRN Reason: Constipation Nicotine (Nicoderm Cq (Pbkc)) 14 mg TRANSDERM. DAILY [facility] Last Admin: 07/01/18 17:25 Dose: 14 mg Ondansetron HCl (Zofran) 4 mg IV Q8H PRN PRN PRN Reason: NAUSEA Last Admin: 07/01/18 22:13 Dose: 4 mg Pantoprazole Sodium (Protonix) 20 mg PO BID [facility] Last Admin: 07/01/18 22:05 Dose: 20 mg Promethazine HCl (Phenergan) 12.5 mg IV Q6H PRN PRN PRN Reason: NAUSEA/VOMITING Last Admin: 07/02/18 04:47 Dose: 12.5 mg Sodium Bicarbonate (Sodium Bicarbonate) 650 mg PO 4X/DAY [facility] Last Admin: 07/01/18 22:05 Dose: 650 mg Sodium Chloride () 5 - 15 ml IV UD PRN PRN Reason: SALINE FLUSH Last Admin: 07/02/18 04:47 Dose: 10 ml - Past Medical History Past Medical History (Chronic Problems): Chronic Problems (Last Updated 02/27/18 @ 10:29 by Pricila Olson) CAD (coronary artery disease) (Chronic) Stented coronary artery (Chronic 02/26/18) FFR of LAD 0.82; VIKY of mid LAD with 2.5 X 24 mm Promus Synergy, OM <50% stenosis per Dr. Magdaleno @ [facility] Atherosclerotic heart disease of [place] coronary artery without angina pectoris (Chronic) S/P PTCA/VIKY to mid LAD in February 2018 OM #1 noted to be 50%; ESRD (end stage renal disease) on dialysis (Chronic) Decubitus ulcer, stage III (Chronic) Anemia, chronic disease (Chronic) Pilonidal cyst with abscess (Chronic) GABRIEL (obstructive sleep apnea) (Chronic) Depression (Chronic) Anxiety (Chronic) HTN (hypertension) (Chronic) Diabetes mellitus type 1 (Chronic) Hyperlipidemia (Chronic) Obesity (BMI 30.0-34.9) (Chronic) Gastroparesis (Chronic) - Past Surgical History Surgical History: appendectomy, hysterectomy - and BSO, - - c-sections, L breast I+D for abscess, fistula placement LUE, L ankle surgery, appendectomy, PDA repair. Excision pilonidal cyst ulcer about 4 years ago. Colostomy placed due to rectal abscess/wound, patent ductus repair, drug-eluting stent placement left anterior descending coronary artery February 2018. - Social History Smoking Status: Current some day smoker Alcohol: None Drugs: None - Family History Maternal History Items: Cancer, COPD, Diabetes, Hypertension, Renal Disease, Stroke Paternal History Items: Diabetes Sibling History Items: Cancer, Diabetes - Physical Exam General: Alert, Oriented x3 HEENT: Atraumatic Oral: Moist Mucosa Neck: Supple, No JVD Lungs: Clear to auscultation Cardiovascular: Regular rate, Regular Rhythm, Normal S1 Abdomen: Bowel Sounds Present, Soft, Non Tender Extremities: No clubbing, No cyanosis, No edema Skin: No rashes Musculoskeletal: No Tenderness to Palpation of Joints or Extremities Lymphatic: No Cervical, Supraclavicular, or Inguinal Adenopathy Neurological: Cranial nerves II-XII grossly intact, Neuro grossly intact Psych/Mental Status: Normal Affect Vital Signs Temp Pulse Resp BP Pulse Ox 98.6 F 89 16 142/86 H 97 07/02/18 06:27 07/02/18 07:00 07/02/18 06:51 07/02/18 06:27 07/02/18 06:51 Oxygen Flow Rate (L/min) 2 Oxygen Delivery Method Room Air Weight: 88.5 kg Body Mass Index (BMI) 31.4 Finger Stick Blood Glucose 118 Intake and Output for Last 24 Hours 06/30/18 07/01/18 07/02/18 23:59 23:59 23:59 Intake Total 720 / 720 Balance 720 / 720 Laboratory Tests Past 24 Hrs 07/01/18 07/01/18 07/01/18 14:40 14:40 17:36 WBC RBC Hgb Hct MCV MCH MCHC RDW RDW Differential Plt Count MPV Immature Gran % (Auto) Neut % (Auto) Lymph % (Auto) [place] % (Auto) Eos % (Auto) Baso % (Auto) Absolute Neuts (auto) Absolute Lymphs (auto) Total Counted PT INR APTT Sodium Potassium Chloride Carbon Dioxide Anion Gap BUN Creatinine Estim Creat Clear Calc Est GFR (MDRD) Af Amer Est GFR (MDRD) Non-Af BUN/Creatinine Ratio Glucose Calcium Phosphorus 5.9 H Magnesium 2.0 Troponin I 0.315 H 0.283 H Triglycerides Cholesterol LDL Cholesterol VLDL Cholesterol HDL Cholesterol 07/01/18 07/02/18 07/02/18 20:36 05:45 05:45 WBC 5.7 RBC 2.84 L Hgb 8.8 L Hct 29.7 L MCV 104.6 H MCH 31.0 MCHC 29.6 L RDW 17.1 H RDW Differential 62.4 H Plt Count 131 L MPV 9.1 Immature Gran % (Auto) 0.300 Neut % (Auto) 81.2 H Lymph % (Auto) 10.1 L [place] % (Auto) 5.1 Eos % (Auto) 3.1 Baso % (Auto) 0.2 Absolute Neuts (auto) 4.6 Absolute Lymphs (auto) 0.58 L Total Counted Not Reportable PT 16.0 H INR 1.3 APTT 36.9 H Sodium Potassium Chloride Carbon Dioxide Anion Gap BUN Creatinine Estim Creat Clear Calc Est GFR (MDRD) Af Amer Est GFR (MDRD) Non-Af BUN/Creatinine Ratio Glucose Calcium Phosphorus Magnesium Troponin I 0.274 H Triglycerides Cholesterol LDL Cholesterol VLDL Cholesterol HDL Cholesterol 07/02/18 05:45 WBC RBC Hgb Hct MCV MCH MCHC RDW RDW Differential Plt Count MPV Immature Gran % (Auto) Neut % (Auto) Lymph % (Auto) [place] % (Auto) Eos % (Auto) Baso % (Auto) Absolute Neuts (auto) Absolute Lymphs (auto) Total Counted PT INR APTT Sodium 137 Potassium 4.6 Chloride 96 L Carbon Dioxide 31.0 Anion Gap 10 BUN 52 H Creatinine 7.15 H Estim Creat Clear Calc 9.40 Est GFR (MDRD) Af Amer 8 L Est GFR (MDRD) Non-Af 7 L BUN/Creatinine Ratio 7.3 L Glucose 156 H Calcium 8.2 L Phosphorus Magnesium Troponin I Triglycerides 58 Cholesterol 101 LDL Cholesterol 51 VLDL Cholesterol 12 HDL Cholesterol 38 L POC Glucose 07/02/18 07/01/18 07/01/18 06:32 21:59 17:21 POC Glucose 168 H 194 H 216 H Assessment/Plan All Active Problems (Last Updated 02/27/18 @ 10:29 by Pricila Olson) Nausea & vomiting (Resolved) Migraine (Resolved) Metabolic encephalopathy (Resolved) Chest pain (Acute) Tooth abscess (Resolved) Intractable nausea and vomiting (Resolved) Pneumonia (Resolved) Pulmonary edema (Resolved) Hyperkalemia (Resolved) Atypical chest pain (Resolved) Acute hypoxic respiratory failure (Resolved) Pulmonary edema (Resolved) Clostridium difficile enterocolitis (Resolved) Necrotizing myositis (Resolved) Nonischemic cardiomyopathy (Resolved) S/P repair of PDA (patent ductus arteriosus) (Resolved) Dysmenorrhea (Resolved) Hx of necrotizing fascIItis (Resolved) Iron deficiency anemia due to chronic blood loss (Resolved) Systolic congestive heart failure (Resolved) 1-end-stage renal disease. On TTS schedule for hemodialysis. Patient goes to [facility]. Last hemodialysis was June 30. No need for hemodialysis today. Will arrange hemodialysis session tomorrow as per the chronic order. HD access is LUE AVF 2-hypertension: Blood pressure is well controlled. Please continue the same doses of Coreg, isosorbide nitrate, lisinopril. 3-bone mineral disease. Continue PhosLo 1300 mg 3 times daily with meals. Check phosphorus level. 4-chest pain: Cardiology service on board. 5- URI infection. work up and symptomatic treatment as per the primary service Thank you for the consult. We will continue to follow
--- NOTE | 2018-07-02 09:05 | PN.CARD_ITS ---
Subjectve: Patient seen and examined this morning. Telemetry negative. No chest pain or angina. Patient's main complaint was shortness of breath, fevers, and productive cough consistent with bronchitis. Patient missed 1 of her dialysis visits, as she was not feeling well. Peak troponin 0 0.315, trending downwards. EKG shows normal sinus rhythm with known old inferior lateral T wave inversion. No acute changes. Objective: Vital Signs Temp Pulse Resp BP Pulse Ox 98.6 F 89 16 142/86 H 97 07/02/18 06:27 07/02/18 07:00 07/02/18 06:51 07/02/18 06:27 07/02/18 06:51 Oxygen Flow Rate (L/min) 2 Oxygen Delivery Method Room Air Weight: 195 lb 1.745 oz Body Mass Index (BMI) 31.4 Finger Stick Blood Glucose 118 Intake and Output for Last 24 Hours 06/30/18 07/01/18 07/02/18 23:59 23:59 23:59 Intake Total 720 / 720 Balance 720 / 720 General: Awake, Alert, Oriented x 3 HEENT: PERRL, EOMI, Sclera Non Icteric Neck: Supple, Good ROM, No Lymph Node Enlargement Lungs: Clear to auscultation Cardiovascular: Regular Rhythm, Normal S1, Normal S2, No Murmurs, No Rubs, No Gallops Vascular: No Carotid Bruits, Normal Femoral Pulses, Normal Radial Pulses, Normal Dorsalis Pedal Pulse, Normal Posterior Tibial Pulses Abdomen: Bowel Sounds Present, Soft, Non Tender, No HSM, No Organomegaly Extremities: No Cyanosis, No Clubbing, No edema Neurological: No Focal Motor or Sensory Deficit 07/01/18 14:40: Magnesium 2.0, Troponin I 0.315 H 07/01/18 14:40: Phosphorus 5.9 H 07/01/18 17:36: Troponin I 0.283 H 07/01/18 20:36: Troponin I 0.274 H 07/02/18 05:45: WBC 5.7, RBC 2.84 L, Hgb 8.8 L, Hct 29.7 L, MCV 104.6 H, MCH 31.0, MCHC 29.6 L, RDW 17.1 H, RDW Differential 62.4 H, Plt Count 131 L, MPV 9.1, Immature Gran % (Auto) 0.300, Neut % (Auto) 81.2 H, Lymph % (Auto) 10.1 L, [place] % (Auto) 5.1, Eos % (Auto) 3.1, Baso % (Auto) 0.2, Absolute Neuts (auto) 4.6, Total Counted Not Reportable 07/02/18 05:45: PT 16.0 H, INR 1.3, APTT 36.9 H 07/02/18 05:45: Sodium 137, Potassium 4.6, Chloride 96 L, Carbon Dioxide 31.0, Anion Gap 10, BUN 52 H, Creatinine 7.15 H, Est GFR (MDRD) Af Amer 8 L, Est GFR (MDRD) Non-Af 7 L, BUN/Creatinine Ratio 7.3 L, Glucose 156 H, Calcium 8.2 L, Triglycerides 58, Cholesterol 101, LDL Cholesterol 51, VLDL Cholesterol 12, HDL Cholesterol 38 L Rhythm: EKG: ECHO: Stress Test: Cardiac Cath: PCI: CT Surgery: Holter monitor: EPS: PPM: CXR: Chest CT Scan: Medical Necessity - Tobacco Use Smoking Status: Current some day smoker Tobacco Use: Cigarettes Assessment/Plan 1. Coronary artery disease: I reviewed the patient's catheterization and angioplasty film from February 2018. At that time she had a PCI of her mid LAD with an excellent result. She had diffuse nonobstructive disease of a very small obtuse marginal branch, and essentially normal right coronary artery. Her obtuse marginal branch is too small for stenting. Would not recommend repeat catheterization at this time. Patient appears to have missed her dialysis visit, due to feeling poorly due to productive cough, fevers, shortness of breath and pleuritic type chest pain. Her troponin elevation is most likely a result of microvascular disease and her end-stage renal disease as well. Would not recommend repeat stress testing at this time as she recently had a dobutamine echocardiogram to assess her circumflex territory which was negative. At this point I would recommend continuing baby aspirin, Plavix, strongly encourage tobacco cessation, and continue antihypertensive medications providing her blood pressure is able to tolerate it. Echocardiogram is pending to assess her LV function. Her baseline LV function was 45% by echocardiogram in October 2017. 2. Anemia: The patient has a hemoglobin of 8.8, and may benefit from consideration of transfusion of PRBCs if her hemoglobin drops below 8.0. Continue EPO infusions during dialysis. 3. Hyperlipidemia: Recommend continuing Lipitor. 4. Thank you very much for the opportunity to participate in the cardiac care of your patient. Code Visit Inpatient E&M: 98813 Subs Hosp L2
[2018-07-02] MEDS: Carvedilol 25 MG Tablet PO ×2 (09:20→21:53)
[2018-07-02] MEDS: Erythromycin Base 1 OPTH.TUBE 1 APPLIC RIGHT EYE (09:21)
[2018-07-02] MEDS: Isosorbide Mononitrate 60 MG Tablet PO (09:21)
[2018-07-02] MEDS: Heparin Injection (Vial) 5,000 UNIT/ML VIAL 5000 UNIT SC ×2 (09:21→21:52)
[2018-07-02] MEDS: Pantoprazole Sodium 20 MG Tablet PO ×2 (09:22→21:53)
[2018-07-02] MEDS: Sodium Bicarbonate 650 MG Tablet PO ×4 (09:22→21:53)
[2018-07-02] MEDS: guaiFENesin 1,200 MG Tablet 1200 MG PO ×2 (09:22→21:52)
[2018-07-02] MEDS: Clopidogrel Bisulfate 75 MG Tablet PO (09:22)
[2018-07-02] MEDS: Lisinopril 40 MG Tablet PO (09:22)
[2018-07-02] MEDS: Ondansetron 4 MG/2 ML Vial IV (10:59)
[2018-07-02 11:50] LABS: Bedside Glucose 115 mg/dL (70-110)
[2018-07-02] MEDS: traMADol 50 MG Tablet PO ×2 (12:23→22:00)
[2018-07-02] MEDS: Acetaminophen 500 MG Tablet 1000 MG PO ×2 (14:56→21:53)
--- NOTE | 2018-07-02 15:00 | CASEMGMT ---
Readmission chart review: Pt has had 9 ED visits since february as well as about 3-4 admissions since february. Most complaints are Chest pain, pt does have indeterminate troponins at this time, but per cardiology note, they plan to treat pt medically at this time. See recent CM assessments completed on 04/17/18 and 05/14/18 by this RN CM and Augusta TEJADA CM, respectively. This RN CM will follow for any further discharge planning/needs. This RN CM did attempt to speak with pt this afternoon but RN was at bedside completing care with the door closed. RN CM will f/u with pt tomorrow am. Plan is for discharge tomorrow per Dr. Pressley. Monik TEJADA CM
--- NOTE | 2018-07-02 15:25 | PN_ITS ---
Subjective: Patient was seen and examined. She complains of pain in the left side worse with cough spells. Denies chest pain, or dizziness or palpitations. Vitals/I&O's: Vital Signs Temp Pulse Resp BP Pulse Ox 98.6 F 78 16 104/48 L 98 07/02/18 15:07 07/02/18 15:07 07/02/18 15:07 07/02/18 15:07 07/02/18 15:07 Oxygen Flow Rate (L/min) 2 Oxygen Delivery Method Nasal Cannula Weight: 88.5 kg Body Mass Index (BMI) 31.4 Finger Stick Blood Glucose 118 Intake and Output for Last 24 Hours 06/30/18 07/01/18 07/02/18 23:59 23:59 23:59 Intake Total 720 / 720 200 / 200 Output Total 200 / 200 Balance 720 / 720 0 / 0 General: Alert, Oriented x3, Cooperative, - - having coughing spells, in mild respiratory distress HEENT: Atraumatic, PERRLA, EOMI, Normocephalic Neck: Supple, No JVD, Negative Carotid Bruits Lungs: Normal air movement, Diminished, Rhonchi - scattered Cardiovascular: Regular rate, Regular Rhythm, Normal S1, Normal S2, No murmurs Abdomen: Bowel Sounds Present, Soft, Non Tender, Non-Distended, No Hepato- splenomegaly Extremities: No edema Skin: No rashes, No breakdown Musculoskeletal: No Tenderness to Palpation of Joints or Extremities Lymphatic: No Cervical, Supraclavicular, or Inguinal Adenopathy Neurological: Cranial nerves II-XII grossly intact, Neuro grossly intact Psych/Mental Status: Normal Affect, Appropriate Microbiology Past 72 Hours 07/01/18 14:55 Mucosa - Nasopharyngeal Respiratory Panel (PCR) - Final Laboratory Results 07/01/18 14:40: Phosphorus 5.9 H 07/01/18 17:21: POC Glucose 216 H 07/01/18 17:36: Troponin I 0.283 H 07/01/18 20:36: Troponin I 0.274 H 07/01/18 21:59: POC Glucose 194 H 07/02/18 05:45: WBC 5.7, RBC 2.84 L, Hgb 8.8 L, Hct 29.7 L, MCV 104.6 H, MCH 31.0, MCHC 29.6 L, RDW 17.1 H, RDW Differential 62.4 H, Plt Count 131 L, MPV 9.1, Immature Gran % (Auto) 0.300, Neut % (Auto) 81.2 H, Lymph % (Auto) 10.1 L, [place] % (Auto) 5.1, Eos % (Auto) 3.1, Baso % (Auto) 0.2, Absolute Neuts (auto) 4.6, Absolute Lymphs (auto) 0.58 L, Total Counted Not Reportable 07/02/18 05:45: PT 16.0 H, INR 1.3, APTT 36.9 H 07/02/18 05:45: Sodium 137, Potassium 4.6, Chloride 96 L, Carbon Dioxide 31.0, Anion Gap 10, BUN 52 H, Creatinine 7.15 H, Estim Creat Clear Calc 9.40, Est GFR (MDRD) Af Amer 8 L, Est GFR (MDRD) Non-Af 7 L, BUN/Creatinine Ratio 7.3 L, Glucose 156 H, Calcium 8.2 L, Triglycerides 58, Cholesterol 101, LDL Cholesterol 51, VLDL Cholesterol 12, HDL Cholesterol 38 L 07/02/18 06:32: POC Glucose 168 H 07/02/18 11:29: POC Glucose 115 H Current Medications Acetaminophen (Tylenol) 1,000 mg PO TID REPLACED BY [facility] Last Admin: 07/02/18 14:56 Dose: 1,000 mg Al Hydroxide/Mg Hydroxide (Mylanta Ii) 30 ml PO Q6H PRN PRN PRN Reason: Gastric burning Albuterol Sulfate (Ventolin Aerosols) 2.5 mg INHALATION Q2H PRN PRN PRN Reason: dyspnea, wheezing Albuterol/Ipratropium (Duoneb) 3 ml INHALATION Q4HWA.RT REPLACED BY [facility] Last Admin: 07/02/18 15:05 Dose: 3 ml Aspirin (Aspirin, Baby) 81 mg PO DAILY@0800 REPLACED BY [facility] Last Admin: 07/02/18 08:08 Dose: 81 mg Atorvastatin Calcium (Lipitor) 20 mg PO QHS REPLACED BY [facility] Last Admin: 07/01/18 22:05 Dose: 20 mg Calcium Acetate (Phoslo Gel Cap) 1,334 mg PO TIDCM REPLACED BY [facility] Last Admin: 07/02/18 12:24 Dose: 1,334 mg Carvedilol (Coreg) 25 mg PO BID REPLACED BY [facility] Last Admin: 07/02/18 09:20 Dose: 25 mg Clopidogrel Bisulfate (Plavix) 75 mg PO DAILY REPLACED BY [facility] Last Admin: 07/02/18 09:22 Dose: 75 mg Ergocalciferol (Vitamin D) 50,000 unit PO QWEEK REPLACED BY [facility] Erythromycin () 1 applic RIGHT EYE 4X/DAY REPLACED BY [facility] Last Admin: 07/02/18 14:57 Dose: Not Given Guaifenesin (Mucinex) 1,200 mg PO BID REPLACED BY [facility] Last Admin: 07/02/18 09:22 Dose: 1,200 mg Heparin Sodium (Porcine) (Heparin Na) 5,000 unit SC Q12 REPLACED BY [facility] Last Admin: 07/02/18 09:21 Dose: 5,000 unit Hydralazine HCl (Apresoline Iv) 10 mg IV Q4H PRN PRN PRN Reason: SBP > 160 Insulin Glargine (Lantus ([facility])) 4 units SC QHS REPLACED BY [facility] Last Admin: 07/01/18 22:13 Dose: 4 u Insulin Human Lispro (Humalog Kwikpen ([facility])) 10 unit SC TIDCM REPLACED BY [facility] Last Admin: 07/02/18 12:24 Dose: 10 u Isosorbide Mononitrate (Imdur) 60 mg PO DAILY REPLACED BY [facility] Last Admin: 07/02/18 09:21 Dose: 60 mg Lisinopril (Zestril) 40 mg PO DAILY REPLACED BY [facility] Last Admin: 07/02/18 09:22 Dose: 40 mg Loperamide HCl (Imodium) 2 mg PO TID PRN PRN Reason: STOOLING Magnesium Hydroxide (Milk Of Magnesia) 30 ml PO DAILY PRN PRN Reason: Constipation Nicotine (Nicoderm Cq (Pbkc)) 14 mg TRANSDERM. DAILY REPLACED BY [facility] Last Admin: 07/02/18 09:22 Dose: 14 mg Ondansetron HCl (Zofran) 4 mg IV Q8H PRN PRN PRN Reason: NAUSEA Last Admin: 07/02/18 10:59 Dose: 4 mg Pantoprazole Sodium (Protonix) 20 mg PO BID REPLACED BY [facility] Last Admin: 07/02/18 09:22 Dose: 20 mg Promethazine HCl (Phenergan) 12.5 mg IV Q6H PRN PRN PRN Reason: NAUSEA/VOMITING Last Admin: 07/02/18 04:47 Dose: 12.5 mg Sodium Bicarbonate (Sodium Bicarbonate) 650 mg PO 4X/DAY [place] Last Admin: 07/02/18 14:57 Dose: 650 mg Sodium Chloride () 5 - 15 ml IV UD PRN PRN Reason: SALINE FLUSH Last Admin: 07/02/18 10:58 Dose: 10 ml Tramadol HCl (Ultram) 50 mg PO Q6H PRN PRN PRN Reason: MODERATE PAIN (4-5/10) Last Admin: 07/02/18 12:23 Dose: 50 mg Medical Necessity - Tobacco Use Smoking Status: Current some day smoker Tobacco Use: Cigarettes Assessment/Plan All Active Problems (Last Updated 02/27/18 @ 10:29 by Pricila Olson) Nausea & vomiting (Resolved) Migraine (Resolved) Metabolic encephalopathy (Resolved) Chest pain (Acute) Tooth abscess (Resolved) Intractable nausea and vomiting (Resolved) Pneumonia (Resolved) Pulmonary edema (Resolved) Hyperkalemia (Resolved) Atypical chest pain (Resolved) Acute hypoxic respiratory failure (Resolved) Pulmonary edema (Resolved) Clostridium difficile enterocolitis (Resolved) Necrotizing myositis (Resolved) Nonischemic cardiomyopathy (Resolved) S/P repair of PDA (patent ductus arteriosus) (Resolved) Dysmenorrhea (Resolved) Hx of necrotizing fascIItis (Resolved) Iron deficiency anemia due to chronic blood loss (Resolved) Systolic congestive heart failure (Resolved) 42-year-old female with past medical history of ESRD on hemodialysis (Monday, , Monday), type II DM complicated with neuropathy and gastroparesis, hypertension, hyperlipidemia, obesity comes in with complaints of chest pain and cough. 1. Chest pain, atypical, CAD s/p stents, mild elevation of troponins, cardiology consulted, recommends medical management Continue on aspirin, plavix, statin, carvedilol, isosorbide mononitrate, ACEI 2. Recent URI, influenza negative, will manage symptomatically 3. ESRD on HD, nephrology consulted, dialysis tomorrow. 4. Chronic systolic/diastolic CHF, Cardiomyopathy unclear type, not in acute exacerbation 5. Type 2 DM, complicated with neuropathy and gastroparesis, blood sugars are stable, continue on Lantus 4 units QHS, accucheks with ISS 7. Hypertension, controlled, on carvedilol, Imdur, Lisinopril 8. Hyperlipidemia, on statin 9. Nicotine dependency, on nicotine replacement 10. Obesity, BMI 31.5, diet and exercises recommended 11.Musculoskeletal pain, recent mechanical fall with lumbar strain/contusion, 12. DVT Prophylaxis - Heparin SC. Code Visit Inpatient E&M: 04727 Subs Hosp L2
[2018-07-02 16:30] LABS: Bedside Glucose 143 mg/dL (70-110)
[2018-07-02] MEDS: Atorvastatin Calcium 20 MG Tablet PO (22:00)
[2018-07-02 22:11] LABS: Bedside Glucose 212 mg/dL (70-110)
[2018-07-03 00:06] VITALS: PULSE 87
[2018-07-03] MEDS: proMETHazine 25 MG/ML Syringe 12.5 MG IV (00:36)
[2018-07-03 03:31] VITALS: BP 110/58; PULSE 83; RESP 15; TEMP 36.8; O2SAT 95
[2018-07-03 04:43] VITALS: PULSE 89
[2018-07-03] MEDS: Acetaminophen 500 MG Tablet 1000 MG PO (05:47)
[2018-07-03 06:56] LABS: Bedside Glucose 210 mg/dL (70-110)
[2018-07-03 07:03] VITALS: PULSE 88; RESP 20; O2SAT 98
[2018-07-03] MEDS: Ipratropium/Albuterol Sulfate 3 ML AMPUL.NEB INHALATION (07:03)
[2018-07-03 07:08] VITALS: PULSE 87
[2018-07-03] MEDS: Lisinopril 40 MG Tablet PO (08:53)
[2018-07-03] MEDS: Carvedilol 25 MG Tablet PO (08:53)
[2018-07-03] MEDS: guaiFENesin 1,200 MG Tablet 1200 MG PO (08:53)
[2018-07-03] MEDS: Aspirin 81 MG TAB.CHEW PO (08:53)
[2018-07-03] MEDS: Pantoprazole Sodium 20 MG Tablet PO (08:53)
[2018-07-03] MEDS: Isosorbide Mononitrate 60 MG Tablet PO (08:53)
[2018-07-03] MEDS: Insulin Lispro 100 UNIT/ML INSULN.PEN 10 UNIT SC (08:54)
[2018-07-03] MEDS: Calcium Acetate 667 MG Capsule 1334 MG PO (08:54)
[2018-07-03] MEDS: Clopidogrel Bisulfate 75 MG Tablet PO (08:54)
[2018-07-03] MEDS: Sodium Bicarbonate 650 MG Tablet PO (08:54)
[2018-07-03] MEDS: Heparin Injection (Vial) 5,000 UNIT/ML VIAL 5000 UNIT SC (08:54)
[2018-07-03 09:30] VITALS: BP 111/74; PULSE 86; RESP 18; TEMP 36.9; O2SAT 97
--- NOTE | 2018-07-03 10:17 | CASEMGMT ---
This RN CM received call from peggy Esquivel lapeler, and he states that pt's chair time at 1140 is being held for pt at this time.
--- NOTE | 2018-07-03 10:20 | DCINST_ITS ---
- Discharge Diagnoses Reason(s) for Visit for Discharge Instructions: Chest pain, shortness of breath You will use the following diet at home:: Calorie/Carbohydrate Controlled (specify 1200, 1400, etc), Renal (restricted protein/sodium) Your food should be the consistency of: Regular Your liquids should be the consistency of: Regular/Thin Discharge Activity: Return to Normal Activity Additional Instructions: Continue to follow with your nephrology for dialysis as scheduled. You have bene prescribed breathing treatments as needed for shortness of breath. Allergies/Adverse Reactions: Allergies latex Allergy (Verified 06/29/18 14:21) Rash prochlorperazine [From Compazine] Allergy (Verified 06/29/18 14:21) Unknown levofloxacin [From Levaquin] Adverse Reaction (Verified 06/29/18 14:21) PT CAN'T REMEMBER PT CAN'T REMEMBER metoclopramide HCl [From Reglan] Adverse Reaction (Verified 06/29/18 14:21) Nausea NSAIDS (Non-Steroidal Anti-Inflamma Adverse Reaction (Verified 06/29/18 14:21) kidney function oxycodone HCl [From Percocet] Adverse Reaction (Verified 06/29/18 14:21) HALLUCINATIONS Medications to take at Discharge Aspirin [Aspirin, Baby] 81 mg PO DAILY@0800 01/26/16 Calcium Acetate [Phoslo Gel Cap] 1,334 mg PO TIDCM 01/26/16 Ergocalciferol [Vitamin D] 50,000 unit PO QWEEK 01/26/16 Insulin Aspart [Novolog Flexpen] 10 units SC TIDCM 01/26/16 Insulin Glargine,Hum.rec.anlog [Lantus] 4 unit SQ QHS 01/09/17 proMETHazine tablet [Phenergan tablet] 25 mg PO Q6H PRN PRN #10 tab 03/06/17 Lisinopril 40 mg PO DAILY 03/29/17 Sodium Bicarbonate 650 mg PO 4X/DAY 03/29/17 Omeprazole Magnesium [Prilosec Otc] 20 mg PO DAILY 02/08/18 Isosorbide Mononitrate [Isosorbide Mononitrate ER] 60 mg PO DAILY 02/28/18 Atorvastatin Calcium [Lipitor] 20 mg PO QHS 05/26/18 Carvedilol [Coreg] 25 mg PO BID 05/26/18 Loperamide HCl [Imodium A-D] 2 mg PO TID PRN 05/26/18 Pantoprazole Sodium [Protonix] 20 mg PO BID 05/26/18 Clopidogrel Bisulfate [Plavix] 75 mg PO DAILY 07/01/18 Albuterol Aerosols [Ventolin Aerosols] 2.5 mg INHALATION Q2H PRN PRN #30 vial.neb. 07/03/18 The following prescriptions were given: Albuterol Aerosols [Ventolin Aerosols] 2.5 mg INHALATION Q2H PRN PRN #30 vial.neb. PRN Reason: dyspnea, wheezing Primary Care Physician: Christopher Foy MD [Primary Care Provider] - Please follow up with your Primary Care Physician in: within 2 weeks of discharge Test Results: Test results from this visit will be discussed in further detail at your follow- up appointment, if applicable. Please Follow Up With: Mark Magdaleno MD When: in 2 weeks Please Follow Up With: Mirza Molina MD When: as scheduled for dialysis Proposed Discharge Date: 07/03/18
--- NOTE | 2018-07-03 10:21 | PCM.DC.SUM ---
Discharge Date and Diagnosis Date of Admission: 07/01/18 Date of Discharge: 07/03/18 - Primary Discharge Diagnosis Chest pain, atypical Recent URI - Secondary Discharge Diagnosis Chronic Problems (Last Updated 02/27/18 @ 10:29 by Pricila Olson) CAD (coronary artery disease) (Chronic) Stented coronary artery (Chronic 02/26/18) FFR of LAD 0.82; VIKY of mid LAD with 2.5 X 24 mm Promus Synergy, OM <50% stenosis per Dr. Magdaleno @ [facility] Atherosclerotic heart disease of [place] coronary artery without angina pectoris (Chronic) S/P PTCA/VIKY to mid LAD in February 2018 OM #1 noted to be 50%; ESRD (end stage renal disease) on dialysis (Chronic) Decubitus ulcer, stage III (Chronic) Anemia, chronic disease (Chronic) Pilonidal cyst with abscess (Chronic) GABRIEL (obstructive sleep apnea) (Chronic) Depression (Chronic) Anxiety (Chronic) HTN (hypertension) (Chronic) Diabetes mellitus type 1 (Chronic) Hyperlipidemia (Chronic) Obesity (BMI 30.0-34.9) (Chronic) Gastroparesis (Chronic) Hospital Course and Treatment Cardiology Operations: None Procedures: None Summary of Care Provided: 42-year-old female with past medical history of ESRD on hemodialysis (Monday, , Monday), type II DM complicated with neuropathy and gastroparesis, hypertension, hyperlipidemia, obesity comes in with complaints of chest pain and cough. 1. Chest pain, atypical, history of CAD s/p stents, mild elevation of troponins on admission, cardiology consulted, medical management commended, managed on aspirin, plavix, statin, carvedilol, isosorbide mononitrate, ACEI 2. Recent URI, influenza negative, managed symptomatically with as needed breathing treatments. 3. ESRD on HD, dialysis plan for outpatient on the day of discharge. 4. Chronic systolic/diastolic CHF, cardiomyopathy unclear type, not in acute exacerbation. 5. Type 2 DM, complicated with neuropathy and gastroparesis, on insulin 7. Hypertension, controlled, on carvedilol, Imdur, Lisinopril 8. Hyperlipidemia, on statin 9. Nicotine dependency, on nicotine replacement 10. Obesity, BMI 31.5, diet and exercises recommended 11.Musculoskeletal pain, recent mechanical fall with lumbar strain/contusion, managed conservatively with heating pad and tramadol as needed Subjective: Patient was seen and examined. Denied any new complaints. Feels much better. Her cough has improved. No fever or chills or shortness of breath. She is due to get dialysis today. - Physical Exam General: Alert, Oriented x3, Cooperative, No apparent distress HEENT: Atraumatic, PERRLA, EOMI, Normocephalic Oral: Moist Mucosa Neck: Supple, No JVD, Negative Carotid Bruits Lungs: Clear to auscultation, Normal air movement Cardiovascular: Regular rate, Regular Rhythm, Normal S1, Normal S2, No murmurs Abdomen: Bowel Sounds Present, Soft, Non Tender Extremities: No edema Skin: No rashes, No breakdown Musculoskeletal: No Tenderness to Palpation of Joints or Extremities, Tenderness - Mild, over the left flank Lymphatic: No Cervical, Supraclavicular, or Inguinal Adenopathy Neurological: Cranial nerves II-XII grossly intact Psych/Mental Status: Normal Affect, Appropriate Vital Signs Temp Pulse Resp BP Pulse Ox 98.4 F 86 18 111/74 97 07/03/18 09:30 07/03/18 09:30 07/03/18 09:30 07/03/18 09:30 07/03/18 09:30 Oxygen Flow Rate (L/min) 2 Oxygen Delivery Method Nasal Cannula Weight: 88.5 kg Body Mass Index (BMI) 31.4 Finger Stick Blood Glucose 118 Intake and Output for Last 24 Hours 07/01/18 07/02/18 07/03/18 23:59 23:59 23:59 Intake Total 720 / 720 800 / 800 1150 / 1150 Output Total 1400 / 1400 Balance 720 / 720 -600 / -600 1150 / 1150 Microbiology Past 72 Hours 07/01/18 14:55 Respiratory Panel (PCR) - Final Mucosa - Nasopharyngeal POC Glucose 07/03/18 07/02/18 07/02/18 06:46 21:59 16:25 POC Glucose 210 H 212 H 143 H 07/02/18 11:29 POC Glucose 115 H Discharge Diet: 1999 Calorie Control Diet, Renal Diet Discharge Activity: Return to Normal Activity Home Medications: Medications to take at Discharge Aspirin [Aspirin, Baby] 81 mg PO DAILY@0800 01/26/16 Calcium Acetate [Phoslo Gel Cap] 1,334 mg PO TIDCM 01/26/16 Ergocalciferol [Vitamin D] 50,000 unit PO QWEEK 01/26/16 Insulin Aspart [Novolog Flexpen] 10 units SC TIDCM 01/26/16 Insulin Glargine,Hum.rec.anlog [Lantus] 4 unit SQ QHS 01/09/17 proMETHazine tablet [Phenergan tablet] 25 mg PO Q6H PRN PRN #10 tab 03/06/17 Lisinopril 40 mg PO DAILY 03/29/17 Sodium Bicarbonate 650 mg PO 4X/DAY 03/29/17 Omeprazole Magnesium [Prilosec Otc] 20 mg PO DAILY 02/08/18 Isosorbide Mononitrate [Isosorbide Mononitrate ER] 60 mg PO DAILY 02/28/18 Atorvastatin Calcium [Lipitor] 20 mg PO QHS 05/26/18 Carvedilol [Coreg] 25 mg PO BID 05/26/18 Loperamide HCl [Imodium A-D] 2 mg PO TID PRN 05/26/18 Pantoprazole Sodium [Protonix] 20 mg PO BID 05/26/18 Clopidogrel Bisulfate [Plavix] 75 mg PO DAILY 07/01/18 Albuterol Aerosols [Ventolin Aerosols] 2.5 mg INHALATION Q2H PRN PRN #30 vial.neb. 07/03/18 Lidocaine/Prilocaine HCl [Emla Cream W/Tegaderm] 1 applicatio TOPICAL X1 #1 tube 07/03/18 Following Prescrptions Were Given to Patient: Albuterol Aerosols [Ventolin Aerosols] 2.5 mg INHALATION Q2H PRN PRN #30 vial.neb. PRN Reason: dyspnea, wheezing Lidocaine/Prilocaine HCl [Emla Cream W/Tegaderm] 1 applicatio TOPICAL X1 #1 tube Primary Care Physician: Christopher Foy MD [Primary Care Provider] - Please follow up with your Primary Care Physician in: within 2 weeks of discharge Please Follow Up With: Mark Magdaleno MD When: in 2 weeks Please Follow Up With: Mirza Molina MD When: as scheduled for dialysis Disposition: Home Minutes spent on discharge:: 40 Patient Condition:: Stable Medical Necessity - Tobacco Use Smoking Status: Current some day smoker Tobacco Use: Cigarettes Meaningful Use Info Meaningful Use Diagnoses (Choose all that apply): None applicable Code Visit Inpatient E&M: 45395 Disch Hosp
--- NOTE | 2018-07-03 10:27 | CASEMGMT ---
This RN CM received call from peggy Esquivel grain scooper, and he states that pt's chair time at 1140 is being held for pt at this time and wonders if pt will be discharged in time to keep chair time. Dr. Pressley aware and is discharging pt at this time. Rivka TEJADA aware and states pt's boyfriend is en route to transport pt to dialysis treatment at this time. Message left with Alvin to call this RN CM back to update when available. SStmaxx TEJADA CM
[2018-07-03] MEDS: LORazepam 0.5 MG Tablet PO (10:38)
[2018-07-03] MEDS: Lidocaine/Prilocaine HCl 5 GM Tube 1 GM TOPICAL (10:39)
== END 2018-07-03 11:12 | disposition home or self-care (01) | DRG 313 ==
PROVIDERS: Admitting Provider Family Medicine; Family Provider Family Medicine; PCP Family Medicine; Referring Provider Family Medicine; Visit Provider Internal Medicine
DX: R07.89 Other chest pain (principal); N18.6 End stage renal disease; I50.42 Chronic combined systolic (congestive) and diastolic (congestive) heart failure; I13.2 Hypertensive heart and chronic kidney disease with heart failure and with stage 5 chronic kidney disease, or end stage renal disease; I42.9 Cardiomyopathy, unspecified; I25.10 Atherosclerotic heart disease of native coronary artery without angina pectoris; D63.8 Anemia in other chronic diseases classified elsewhere; E66.9 Obesity, unspecified; E78.5 Hyperlipidemia, unspecified; G47.33 Obstructive sleep apnea (adult) (pediatric); F32.9 Major depressive disorder, single episode, unspecified; E11.43 Type 2 diabetes mellitus with diabetic autonomic (poly)neuropathy; K31.84 Gastroparesis; E11.22 Type 2 diabetes mellitus with diabetic chronic kidney disease; E11.40 Type 2 diabetes mellitus with diabetic neuropathy, unspecified; F41.9 Anxiety disorder, unspecified; S39.012A Strain of muscle, fascia and tendon of lower back, initial encounter; W18.30XA Fall on same level, unspecified, initial encounter; Z99.2 Dependence on renal dialysis; Z68.31 Body mass index [BMI] 31.0-31.9, adult; Z79.4 Long term (current) use of insulin; Z95.5 Presence of coronary angioplasty implant and graft; Z79.899 Other long term (current) drug therapy; F17.210 Nicotine dependence, cigarettes, uncomplicated; J06.9 Acute upper respiratory infection, unspecified; S30.0XXA Contusion of lower back and pelvis, initial encounter; W00.0XXA Fall on same level due to ice and snow, initial encounter; Y93.9 Activity, unspecified; Y92.9 Unspecified place or not applicable; R19.7 Diarrhea, unspecified; D53.9 Nutritional anemia, unspecified; Z87.74 Personal history of (corrected) congenital malformations of heart and circulatory system; Z79.82 Long term (current) use of aspirin; Z79.02 Long term (current) use of antithrombotics/antiplatelets
CPT/HCPCS: 36415; 71046; 80048; 80061; 82962; 83735; 84100; 84484; 85025; 85610; 85730; 87633; 93005; 93306; 94640; 96374; 96375; 97802; 99283; 99406; Q9957; A4216; C8929; J2405

== ENCOUNTER 2018-07-18 18:51 | Emergency (ER) | payer MEDICARE, MEDICAID, SELFPAY ==
[2018-07-01 14:11] VITALS: BMI 31.4
[2018-07-18 18:51] VITALS: BP 158/89; PULSE 102; RESP 18; TEMP 37; O2SAT 99; BMI 32.1
--- NOTE | 2018-07-18 19:25 | RAD_ITS ---
STUDY: X-RAY CHEST REASON FOR EXAM: Female, 42 years old. Cough TECHNIQUE: Frontal and lateral views of the chest COMPARISON: 06/29/2018 FINDINGS: There are mild congestive changes noted. The lungs are otherwise clear. There are no pleural effusions. There is no pneumothorax. The heart is mildly enlarged, but stable. In size. The visualized osseous structures are within normal limits. RAD/Chest PA and Lateral IMPRESSION: Mild pulmonary vascular congestion. Electronically Signed: Chucky Zelaya, at 20:09 EST Tel , Service support ,
[2018-07-18 20:19] VITALS: O2SAT 97
[2018-07-18 20:20] VITALS: BP 170/98; PULSE 89; RESP 24; TEMP 37.1; O2SAT 97
[2018-07-18 20:21] VITALS: BP 170/98; PULSE 83; RESP 24; TEMP 37.1; O2SAT 97
--- NOTE | 2018-07-18 20:41 | ED.VISSUMM ---
- ER Visit Summary Date of Service: 07/18/18 Chief Complaint: Cough History of Present Illness: The patient is a 42 F history of noncemented diabetes, [place], CHF, end-stage renal disease dialysis her last dialysis was on Monday due to the holidays she normally is dialyzed Monday, and Monday. She has one cardiac stent. Patient states she is having a cough of yellowish sputum. No fever but positive chills. She is also had nausea, vomiting and diarrhea. She has a colostomy and states is been pure liquid. Physical Examination: Vital signs stable. Afebrile. Pulse ox 97% on room air no hypoxia. No distress. H EENT exam mildly dry mucous membranes. Neck nontender no lymphadenopathy. Lungs dry hacking cough but no rales, rhonchi or wheezing. Heart regular rate and rhythm rate about 80 no murmur. Abdomen soft nontender normal bowel sounds no peritoneal signs. Colostomy bag with gas and fluid. No melena. Extremities moves all 4. Neurologically she is awake and alert with no focal motor deficits. Test Results: Chest x-ray shows vascular congestion but no obvious pneumonia read both by myself and the radiologist. CBC shows a normal white count of 6.8. Hemoglobin of 9 which is the patient's baseline chronic anemia. Chemistries unremarkable creatinine 7.1 she has a history of end-stage renal disease dialysis. Glucose 177 normal gap. Emergency Department Course and Treatment: Treated with IV Zofran. P.o. fluids. Multiple repeat exams patient is doing well. She was treated with p.o. Tylenol and one [place]. I went over all test results with her and family and are comfortable with her being discharged. Treatment Plan: Symptomatic treatment. Follow-up with her primary care physician Dr. Foy Disposition: Discharge Impression: Acute viral bronchitis Nausea and vomiting Chronic End-stage renal disease dialysis History of insulin-dependent diabetes This note was generated with [employer] dictation software. It may contain incorrect words, spelling, and punctuation that were not noted in review of the chart prior to signing ED Disposition - Plan for ED Patient: Chief Complaint: Cough Referrals: Christopher Foy MD [Primary Care Provider] -
--- NOTE | 2018-07-18 20:45 | ED.DCSUM_ITS ---
- ER Visit Summary Date of Service: 07/18/18 Chief Complaint: Cough History of Present Illness: The patient is a 42 F history of noncemented diabetes, [place], CHF, end-stage renal disease dialysis her last dialysis was on Monday due to the holidays she normally is dialyzed Monday, and Monday. She has one cardiac stent. Patient states she is having a cough of yellowish sputum. No fever but positive chills. She is also had nausea, vomiting and diarrhea. She has a colostomy and states is been pure liquid. Physical Examination: Vital signs stable. Afebrile. Pulse ox 97% on room air no hypoxia. No distress. H EENT exam mildly dry mucous membranes. Neck nontender no lymphadenopathy. Lungs dry hacking cough but no rales, rhonchi or wheezing. Heart regular rate and rhythm rate about 80 no murmur. Abdomen soft nontender normal bowel sounds no peritoneal signs. Colostomy bag with gas and fluid. No melena. Extremities moves all 4. Neurologically she is awake and alert with no focal motor deficits. Test Results: Chest x-ray shows vascular congestion but no obvious pneumonia read both by myself and the radiologist. CBC shows a normal white count of 6.8. Hemoglobin of 9 which is the patient's baseline chronic anemia. Chemistries unremarkable creatinine 7.1 she has a history of end-stage renal disease dialysis. Glucose 177 normal gap. Emergency Department Course and Treatment: Treated with IV Zofran. P.o. fluids. Multiple repeat exams patient is doing well. She was treated with p.o. Tylenol and one [place]. I went over all test results with her and family and are comfortable with her being discharged. Treatment Plan: Symptomatic treatment. Follow-up with her primary care physician Dr. Foy Disposition: Discharge Impression: Acute viral bronchitis Nausea and vomiting Chronic End-stage renal disease dialysis History of insulin-dependent diabetes This note was generated with [employer] dictation software. It may contain incorrect words, spelling, and punctuation that were not noted in review of the chart prior to signing ED Disposition - Plan for ED Patient: Chief Complaint: Cough Referrals: Christopher Foy MD [Primary Care Provider] -
[2018-07-18] MEDS: Ondansetron 4 MG/2 ML Vial IV ×2 (21:06→21:27)
[2018-07-18 21:07] LABS: Absolute Lymphocyte Count 0.98 X10^3/ul (0.83-4.51); Absolute Neutrophil Count 5.2 X10^3/uL (2.0-7.7); Basophil# 0.02 X10^3/uL; Basophil% 0.3 % (0-1); Eosinophil# 0.27 X10^3/uL; Hematocrit 30.1 % (37-47); Hemoglobin 9.1 g/dl (12.0-15.0); Lymphocyte # 0.98 X10^3/ul (4.0); Lymphocyte % 14.5 % (19-41); Mean Corp Hgb Conc 30.2 g/gl (32-36); Mean Corpuscular Hgb 30.1 pg (27.0-32.0); Mean Corpuscular Volume 99.7 fL (81-99); Mean Platelet Vol. 8.6 fl (6.2-12.0); Monocyte# 0.29 X10^3/uL; Monocyte% 4.3 % (0-10); Neutrophil % 76.9 % (47-70); Platelet Count 136 K/mm3 (150-450); RBC Distribution Width CV 17.7 % (11.6-14.6); RBC Distribution Width SD 64.3 fl (35.1-43.9); Red Blood Count 3.02 M/mm3 (4.2-5.4); White Blood Count 6.8 K/mm3 (4.4-11.0)
[2018-07-18 21:09] LABS: POSITIVE COUNT NO; POSITIVE DIFFERENTIAL NO; POSITIVE MORPHOLOGY NO
[2018-07-18 21:12] VITALS: BP 133/74; PULSE 94; RESP 21; TEMP 36.9; O2SAT 95
[2018-07-18 21:19] LABS: Anion Gap 12 (5-15); BUN 64 mg/dL (7-18); Calcium,Total 8.6 mg/dL (8.5-10.1); Chloride 98 mmol/L (98-107); Creatinine, Serum 7.12 mg/dL (0.55-1.02); EST Glomerular Filtration Rate 7 mL/min (>60); Est Glom Filt Rate - Afr Amer 8 mL/min (>60); Estimated Creatinine Clearance 9.44 ml/min; Glucose 177 mg/dL (74-106); Potassium 4.7 mmol/L (3.5-5.1); Sodium Level 136 mmol/L (136-145)
[2018-07-18] MEDS: Acetaminophen 500 MG Tablet 1000 MG PO (21:38)
--- NOTE | 2018-07-18 22:10 | ED.RN ---
family member approached me in the hallway. she was concerned patient was seeking narcotic medications. she was informed that patient only was given zofran and tylenol. discharge planner and made aware. Lauri Marcos RN [id number]
[2018-07-18] MEDS: HYDROcodone Bitartrate/Apap 5/325 Tablet PO (22:49)
--- NOTE | 2018-07-18 22:50 | ED.RN ---
dr informed of prior order for 1 gram of tylenol and the concern for giving additional tylenol in the [place]. he stated it was a small enouph dose that it wouldn't hurt her. medication given pt is waiting on her d/c instructions. pete willis. rn [id number]
--- NOTE | 2018-07-18 22:54 | ED.DEP ---
ED Disposition - Plan for ED Patient: Disposition: Home or Assisted Living Chief Complaint: Cough Instructions: ED Upper Resp Infec No Abx Tx Referrals: Christopher Foy MD [Primary Care Provider] - 1 Week if not improving Additional Instructions: Plenty of fluids and rest. Zofran as needed for nausea. Follow-up with your doctor if not improving. Most likely this is a viral illness and will improve. No antibiotics are needed at this time.
[2018-07-18 23:07] VITALS: BP 147/87; PULSE 88; RESP 17; TEMP 36.9; O2SAT 95
== END 2018-07-18 23:09 | disposition home or self-care (01) ==
PROVIDERS: Emergency Provider Emergency Medicine; Family Provider Family Medicine; PCP Family Medicine
DX: J20.8 Acute bronchitis due to other specified organisms (principal); R11.2 Nausea with vomiting, unspecified; E11.22 Type 2 diabetes mellitus with diabetic chronic kidney disease; I13.2 Hypertensive heart and chronic kidney disease with heart failure and with stage 5 chronic kidney disease, or end stage renal disease; I50.9 Heart failure, unspecified; N18.6 End stage renal disease; Z99.2 Dependence on renal dialysis; R19.7 Diarrhea, unspecified; D53.9 Nutritional anemia, unspecified; I25.10 Atherosclerotic heart disease of native coronary artery without angina pectoris; I25.2 Old myocardial infarction; Z95.5 Presence of coronary angioplasty implant and graft; Z93.3 Colostomy status; Z79.4 Long term (current) use of insulin; Z79.82 Long term (current) use of aspirin; Z79.02 Long term (current) use of antithrombotics/antiplatelets; Z79.899 Other long term (current) drug therapy; Z72.0 Tobacco use
CPT/HCPCS: 71046; 80048; 85025; 96374; 99284; A4216; J2405

== ENCOUNTER 2018-08-09 13:43 | Inpatient (IN) | payer MEDICARE, MEDICAID, SELFPAY ==
[2018-08-09] VITALS (11 sets, daily range): BP systolic 129–145; BP diastolic 85–93; PULSE 82–91; RESP 18–20; TEMP 36.6–36.9; O2SAT 90–99; BMI 32.8; BMI 32.2; BMI 32.3
[2018-08-09] MEDS: 0.9% Normal Saline 1,000 ML 150 ML IV (14:34)
[2018-08-09] MEDS: Ondansetron 4 MG/2 ML Vial IV (14:34)
[2018-08-09] MEDS: Morphine 4 MG/ML Syringe IV (14:34)
[2018-08-09 14:41] LABS: Anion Gap 10 (5-15); BUN 35 mg/dL (7-18); BUN/Creat Ratio 5.9 RATIO (10-20); Calcium,Total 8.2 mg/dL (8.5-10.1); Chloride 99 mmol/L (98-107); Creatinine, Serum 5.91 mg/dL (0.55-1.02); EST Glomerular Filtration Rate 8 mL/min (>60); Est Glom Filt Rate - Afr Amer 10 mL/min (>60); Estimated Creatinine Clearance 11.37 ml/min; Glucose 258 mg/dL (74-106); Potassium 3.7 mmol/L (3.5-5.1); Sodium Level 139 mmol/L (136-145)
[2018-08-09 14:44] LABS: Absolute Lymphocyte Count 0.83 X10^3/ul (0.83-4.51); Absolute Neutrophil Count 3.8 X10^3/uL (2.0-7.7); Basophil# 0.01 X10^3/uL; Basophil% 0.2 % (0-1); Eosinophil# 0.04 X10^3/uL; Eosinophils% 0.8 % (0-5); Hemoglobin 9.4 g/dl (12.0-15.0); Lymphocyte # 0.83 X10^3/ul (4.0); Mean Corp Hgb Conc 29.4 g/gl (32-36); Mean Corpuscular Hgb 30.7 pg (27.0-32.0); Mean Corpuscular Volume 104.6 fL (81-99); Mean Platelet Vol. 9.3 fl (6.2-12.0); Monocyte# 0.19 X10^3/uL; Monocyte% 3.9 % (0-10); Neutrophil # 3.79 X10^3/uL (2.7-7.7); Neutrophil % 77.7 % (47-70); Platelet Count 125 K/mm3 (150-450); RBC Distribution Width CV 17.9 % (11.6-14.6); RBC Distribution Width SD 67.2 fl (35.1-43.9); Red Blood Count 3.06 M/mm3 (4.2-5.4); White Blood Count 4.9 K/mm3 (4.4-11.0)
[2018-08-09 14:45] LABS: Differential Indicated SCAN CRITERIA MET; POSITIVE COUNT NO; POSITIVE DIFFERENTIAL NO; POSITIVE MORPHOLOGY YES
[2018-08-09 15:00] LABS: Lactic Acid 2.7 mmol/L (0.4-2.0)
--- NOTE | 2018-08-09 15:34 | ED.VISSUMM ---
- ER Visit Summary Date of Service: 08/09/18 Chief Complaint: [Redness and swelling to abdomen] History of Present Illness: The patient is a 42 F [presents the emergency department with redness and swelling to her abdomen that she noticed yesterday. Patient had a fever up to 103 at home. Patient complained of nausea and she vomited a couple times. Patient states she is having normal output from her colostomy. Patient has colostomy due to need for diversion away from a chronic wound. Patient has history of necrotizing myositis as well as end-stage renal disease. Patient had dialysis today but was only able to sit for half the session.] Physical Examination: [HEENT-PERRLA, EOMI. Cranial nerves II through XII grossly intact. TMs clear. Mucous membranes moist. No adenopathy. Cardiovascular-regular rate and rhythm without murmur or ectopy Lungs-clear to auscultation, chest wall stable without crepitus or subcu emphysema Abdomen-normoactive bowel sounds, soft. Patient has diffuse tenderness to palpation. There is no rebound, rigidity, or perineal signs. The abdominal wall is diffusely erythematous and cellulitic. Patient has warmth to the skin noted. Extremities-intact ?4, normal range of motion, normal pulses, atraumatic] Test Results: [Showed a white count of 4.9, hemoglobin 9.4, hematocrit 32, platelets 125. Chemistries unremarkable. BUN was 35 and creatinine 5.91. Lactate was elevated 2.7.] CBC with differential obtained Emergency Department Course and Treatment: [Patient had blood cultures ordered and she was started on Unasyn and vancomycin.] Patient was given morphine and Zofran for pain. Treatment Plan: [Admit for IV antibiotics and pain control.] Disposition: [Admit] Impression: [Abdominal wall cellulitis] This note was generated with [employer] dictation software. It may contain incorrect words, spelling, and punctuation that were not noted in review of the chart prior to signing ED Disposition - Plan for ED Patient: Chief Complaint: Cellulitis Referrals: Christopher Foy MD [Primary Care Provider] -
--- NOTE | 2018-08-09 16:05 | PCM.HP.STD ---
Problem List (1) Cellulitis Status: Acute Qualifiers: Site of cellulitis: other site Qualified Code(s): L03.818 - Cellulitis of other sites (2) CAD (coronary artery disease) Status: Chronic Qualifiers: Coronary Disease-Associated Artery/Lesion type: [place] artery [place] vs. transplanted heart: [place] heart Associated angina: without angina Qualified Code(s): I25.10 - Atherosclerotic heart disease of [place] coronary artery without angina pectoris (3) ESRD (end stage renal disease) on dialysis Status: Chronic (4) GABRIEL (obstructive sleep apnea) Status: Chronic (5) Depression Status: Chronic Qualifiers: Depression Type: unspecified Qualified Code(s): F32.9 - Major depressive disorder, single episode, unspecified (6) Anxiety Status: Chronic (7) HTN (hypertension) Status: Chronic Qualifiers: Hypertension type: essential hypertension Qualified Code(s): I10 - Essential (primary) hypertension (8) Nonischemic cardiomyopathy Status: Chronic Comment: EF 45% per echo 07/01/2018 History of Present Illness Date of Admission: 08/09/18 Chief Complaint: Abdominal wall redness and pain - 2 days The patient is a 42 year old F with past medical history of ESRD on hemodialysis (), history of necrotizing fasciitis in 2008 after section status post colostomy, history of nonischemic cardiomyopathy, comes in with complaints of anterior abdominal wall redness and pain ongoing for 2 days. Patient admits also to fever and chills. Noticed redness of the anterior abdominal wall. No leakage of contents from the colostomy bag. No increased diarrhea or constipation. Denied any dysuria or frequency or chest pain or cough. Vitals in the ED temperature of 90 7.8F, heart rate 89, respiratory rate 18, PO2 was 96% on room air, blood pressure 125/98. Making blood work showed RBC count of 4.9, hemoglobin 9.4, platelet count 125, BMP was significant for BUN of 35, creatinine 5.91, lactic acid 2.7. Patient admits to having dialysis yesterday, but did not complete dialysis because of pain. Past Medical History Past Medical History (Chronic Problems): Chronic Problems (Last Reviewed 07/27/18 @ 11:56 by Pricila Olson) CAD (coronary artery disease) (Chronic) Stented coronary artery (Chronic 02/26/18) FFR of LAD 0.82; VIKY of mid LAD with 2.5 X 24 mm Promus Synergy, OM <50% stenosis per Dr. Magdaleno @ [facility] Atherosclerotic heart disease of [place] coronary artery without angina pectoris (Chronic) S/P PTCA/VIKY to mid LAD in February 2018 OM #1 noted to be 50%; ESRD (end stage renal disease) on dialysis (Chronic) Decubitus ulcer, stage III (Chronic) Anemia, chronic disease (Chronic) Pilonidal cyst with abscess (Chronic) GABRIEL (obstructive sleep apnea) (Chronic) Depression (Chronic) Anxiety (Chronic) HTN (hypertension) (Chronic) Nonischemic cardiomyopathy (Chronic) EF 45% per echo 07/01/2018 S/P repair of PDA (patent ductus arteriosus) (Chronic) At young age Diabetes mellitus type 1 (Chronic) Hyperlipidemia (Chronic) Obesity (BMI 30.0-34.9) (Chronic) Gastroparesis (Chronic) Medical History: Medical History (Last Reviewed 07/27/18 @ 11:56 by Pricila Olson) Atherosclerotic heart disease of [place] coronary artery without angina pectoris (Chronic) I25.10 S/P PTCA/VIKY to mid LAD in February 2018 OM #1 noted to be 50%; ESRD (end stage renal disease) on dialysis (Chronic) N18.6, Z99.2 Decubitus ulcer, stage III (Chronic) L89.93 Anemia, chronic disease (Chronic) D63.8 Pilonidal cyst with abscess (Chronic) L05.01 GABRIEL (obstructive sleep apnea) (Chronic) G47.33 HTN (hypertension) (Chronic) I10 Nonischemic cardiomyopathy (Chronic) I42.8 EF 45% per echo 07/01/2018 Diabetes mellitus type 1 (Chronic) Hyperlipidemia (Chronic) E78.5 Obesity (BMI 30.0-34.9) (Chronic) E66.9 Gastroparesis (Chronic) K31.84 Allergies latex Allergy (Verified 08/09/18 13:51) Rash prochlorperazine [From Compazine] Allergy (Verified 08/09/18 13:51) Unknown levofloxacin [From Levaquin] Adverse Reaction (Verified 08/09/18 13:51) PT CAN'T REMEMBER PT CAN'T REMEMBER metoclopramide HCl [From Reglan] Adverse Reaction (Verified 08/09/18 13:51) Nausea NSAIDS (Non-Steroidal Anti-Inflamma Adverse Reaction (Verified 08/09/18 13:51) kidney function oxycodone HCl [From Percocet] Adverse Reaction (Verified 08/09/18 13:51) HALLUCINATIONS Home Medications: Ambulatory Orders Medication Instructions Recorded Aspirin [Aspirin, Baby] 81 mg PO DAILY@0800 01/26/16 Calcium Acetate [Phoslo Gel Cap] 1,334 mg PO TIDCM 01/26/16 Ergocalciferol [Vitamin D] 50,000 unit PO MO 01/26/16 Insulin Aspart [Novolog Flexpen] 10 units SC TIDCM 01/26/16 Insulin Glargine,Hum.rec.anlog 4 unit SQ QHS 01/09/17 [Lantus] proMETHazine tablet [Phenergan 25 mg PO Q6H PRN PRN #10 tab 03/06/17 tablet] Lisinopril 20 mg PO DAILY 03/29/17 Sodium Bicarbonate 650 mg PO 4X/DAY 03/29/17 Atorvastatin Calcium [Lipitor] 20 mg PO QHS 05/26/18 Carvedilol [Coreg] 25 mg PO BID 05/26/18 Loperamide HCl [Imodium A-D] 2 mg PO TID PRN 05/26/18 Pantoprazole Sodium [Protonix] 20 mg PO BID 05/26/18 Clopidogrel Bisulfate [Plavix] 75 mg PO DAILY 07/01/18 Albuterol Aerosols [Ventolin 2.5 mg INHALATION Q2H PRN PRN #30 07/03/18 Aerosols] vial.neb. Lidocaine/Prilocaine HCl [Emla 1 applicatio TOPICAL X1 #1 tube 07/03/18 Cream W/Tegaderm] ALPRAZolam [Xanax] 0.5 mg PO PRN PRN 08/09/18 Acetaminophen 650 mg PO PRN PRN 08/09/18 B Complex W-C No.20/Folic Acid 1 mg PO DAILY 08/09/18 [Nephrocaps Softgel] Fluoxetine HCl 40 mg PO DAILY 08/09/18 Hydroxyzine HCl 50 mg PO TUTHSA 08/09/18 Isosorbide Mononitrate [Imdur] 60 mg PO DAILY 08/09/18 Surgical History: Surgical History (Last Reviewed 01/04/19 @ 11:56 by Pricila Olson) Stented coronary artery (Chronic) Onset Date: 02/26/18 Z95.5 FFR of LAD 0.82; VIKY of mid LAD with 2.5 X 24 mm Promus Synergy, OM <50% stenosis per Dr. Magdaleno @ [facility] S/P repair of PDA (patent ductus arteriosus) (Chronic) Z98.890, Z87.74 At young age Surgical History: appendectomy, hysterectomy - and BSO, - - c-sections, L breast I+D for abscess, fistula placement LUE, L ankle surgery, appendectomy, PDA repair. Excision pilonidal cyst ulcer about 4 years ago. Colostomy placed due to rectal abscess/wound, patent ductus repair, drug-eluting stent placement left anterior descending coronary artery February 2018. Lives: With Family Smoking Status: Current some day smoker Tobacco Use: Cigarettes Alcohol: None Drugs: None - *Family History Maternal History Items: Cancer, COPD, Diabetes, Hypertension, Renal Disease, Stroke Paternal History Items: Diabetes Sibling History Items: Cancer, Diabetes Review of Systems Constitutional: Reports: Anorexia, Chills, Fever, Malaise, Weakness. Denies: Weight Change Eyes: Denies: Blurred vision, Cataracts, Conjunctivae Inflammation, Double vision, Pain, Redness, Vision Change HEENT: Denies: Difficulty Hearing, Difficulty Swallowing, Head Aches, Hearing Changes, Nasal bleeding, Nasal Congestion, Sinus Congestion, Sinus Drainage, Sore Throat Cardiovascular: Denies: Chest Pain, Claudication, Chest Pressure, Chest Tightness, Orthopnea, Palpitations, Paroxysmal Noc. Dyspnea Respiratory: Denies: Cough, Hemoptysis, Pleuritic Pain, Shortness of breath at rest, Shortness of breath upon exertion, Sputum production, Wheezing Gastrointestinal: Reports: Abdominal Pain. Denies: Constipation, Diarrhea, Dyspepsia, Hematochezia, Nausea, Vomiting Genitourinary: Denies: Dysuria, Frequency Gynecological: Denies: Breast symptoms, Vaginal discharge Musculoskeletal: Denies: Joint Pain, Joint stiffness, Joint swelling, Joint Tenderness Skin: Denies: Pruritis, Rash, Wounds Neurological: Denies: Difficulty swallowing, Focal weakness, Numbness, Tingling Psychiatric: Denies: Anxiety, Depression, Homicidal Ideations, Suicidal Ideations Hematologic/ Lymphatic: Denies: Easy Bruising, Easy Bleeding VTE Information - Inpt Only VTE Present on Admission: No VTE Pharm Prophylaxis ordered?: Yes Patient Problems: Active and Suspected Problems (Last Reviewed 07/27/18 @ 11:56 by Pricila Olson) Cellulitis (Acute) - Physical Exam General: Alert, Oriented x3, Cooperative, No apparent distress, - - on 3L oxygen HEENT: Atraumatic, PERRLA, EOMI, Normocephalic Oral: Moist Mucosa Neck: Supple, No JVD, Negative Carotid Bruits Lungs: Clear to auscultation, Normal air movement Cardiovascular: Regular rate, Regular Rhythm, Normal S1, Normal S2, No murmurs Abdomen: Bowel Sounds Present, Soft, No Hepato-splenomegaly, - - Erythema of the anterior abdominal wall with redness from the upper abdomen to the suprapubic region, slight purulent discharge from the pannus and previous suprapubic catheter site. Extremities: No edema Skin: No rashes, No breakdown Musculoskeletal: No Tenderness to Palpation of Joints or Extremities Lymphatic: No Cervical, Supraclavicular, or Inguinal Adenopathy Neurological: Cranial nerves II-XII grossly intact, Neuro grossly intact Psych/Mental Status: Normal Affect, Appropriate Vital Signs Temp Pulse Resp BP Pulse Ox 98.2 F 89 20 H 129/93 H 90 08/09/18 15:05 08/09/18 15:05 08/09/18 15:05 08/09/18 13:50 08/09/18 15:05 Oxygen Delivery Method Room Air Weight: 92.2 kg Body Mass Index (BMI) 32.8 Finger Stick Blood Glucose 118 Laboratory Tests Past 24 Hrs 08/09/18 08/09/18 08/09/18 14:05 14:05 14:05 WBC 4.9 RBC 3.06 L Hgb 9.4 L Hct 32.0 L MCV 104.6 H MCH 30.7 MCHC 29.4 L RDW 17.9 H RDW Differential 67.2 H Plt Count 125 L MPV 9.3 Immature Gran % (Auto) 0.400 Neut % (Auto) 77.7 H Lymph % (Auto) 17.0 L [place] % (Auto) 3.9 Eos % (Auto) 0.8 Baso % (Auto) 0.2 Absolute Neuts (auto) 3.8 Absolute Lymphs (auto) 0.83 Total Counted Not Reportable Differential Comment COMMENT Sodium 139 Potassium 3.7 Chloride 99 Carbon Dioxide 30.0 Anion Gap 10 BUN 35 H Creatinine 5.91 H Estim Creat Clear Calc 11.37 Est GFR (MDRD) Af Amer 10 L Est GFR (MDRD) Non-Af 8 L BUN/Creatinine Ratio 5.9 L Glucose 258 H Lactic Acid 2.7 H Calcium 8.2 L Assessment/Plan All Active Problems (Last Reviewed 07/27/18 @ 11:56 by Pricila Olson) Cellulitis (Acute) Nausea & vomiting (Resolved) Migraine (Resolved) Metabolic encephalopathy (Resolved) Chest pain (Acute) Tooth abscess (Resolved) Intractable nausea and vomiting (Resolved) Pneumonia (Resolved) Pulmonary edema (Resolved) Hyperkalemia (Resolved) Atypical chest pain (Resolved) Acute hypoxic respiratory failure (Resolved) Pulmonary edema (Resolved) Clostridium difficile enterocolitis (Resolved) Necrotizing myositis (Resolved) Dysmenorrhea (Resolved) Hx of necrotizing fascIItis (Resolved) Iron deficiency anemia due to chronic blood loss (Resolved) Systolic congestive heart failure (Resolved) 42 year old F with past medical history of ESRD on hemodialysis (), history of necrotizing fasciitis in 2008 after section status post colostomy, history of nonischemic cardiomyopathy, comes in with complaints of anterior abdominal wall redness and pain ongoing for 2 days. 1. Cellulitis of the anterior abdominal wall, no signs of sepsis, no SIRS criteria, history of necrotizing fasciitis Plan: [facility], continue on IV Unasyn and vancomycin started in the emergency department, ID consult, pain control, IV hydration 2. Elevated lactic acid, likely related to cellulitis versus dehydration but no signs of sepsis per criteria, will trend 3. ESRD on hemodialysis, followed Monday, Monday 4. Chronic systolic EF, nonischemic cardiomyopathy, previous workup has been negative, history of CAD status post stent 5. 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 Hypertension, controlled, continue home regimen 7. Hyperlipidemia, on statin 8. Anxiety/depression, continue home regimen 9. Nicotine dependence, advised to quit, nicotine replacement offered 10. Obesity, BMI 32.8, diet and exercise is recommended 11. GERD, on PPI 12. DVT PPx- Heparin SC Code Visit Inpatient E&M: 52055 Init Hosp L3
--- NOTE | 2018-08-09 16:08 | HP.PCM_ITS ---
Problem List (1) Cellulitis Status: Acute Qualifiers: Site of cellulitis: other site Qualified Code(s): L03.818 - Cellulitis of other sites (2) CAD (coronary artery disease) Status: Chronic Qualifiers: Coronary Disease-Associated Artery/Lesion type: [place] artery [place] vs. transplanted heart: [place] heart Associated angina: without angina Qualified Code(s): I25.10 - Atherosclerotic heart disease of [place] coronary artery without angina pectoris (3) ESRD (end stage renal disease) on dialysis Status: Chronic (4) GABRIEL (obstructive sleep apnea) Status: Chronic (5) Depression Status: Chronic Qualifiers: Depression Type: unspecified Qualified Code(s): F32.9 - Major depressive disorder, single episode, unspecified (6) Anxiety Status: Chronic (7) HTN (hypertension) Status: Chronic Qualifiers: Hypertension type: essential hypertension Qualified Code(s): I10 - Essential (primary) hypertension (8) Nonischemic cardiomyopathy Status: Chronic Comment: EF 45% per echo 07/01/2018 History of Present Illness Date of Admission: 08/09/18 Chief Complaint: Abdominal wall redness and pain - 2 days The patient is a 42 year old F with past medical history of ESRD on hemodialysis (), history of necrotizing fasciitis in 2008 after section status post colostomy, history of nonischemic cardiomyopathy, comes in with complaints of anterior abdominal wall redness and pain ongoing for 2 days. Patient admits also to fever and chills. Noticed redness of the anterior abdominal wall. No leakage of contents from the colostomy bag. No increased diarrhea or constipation. Denied any dysuria or frequency or chest pain or cough. Vitals in the ED temperature of 90 7.8F, heart rate 89, respiratory rate 18, PO2 was 96% on room air, blood pressure 125/98. Making blood work showed RBC count of 4.9, hemoglobin 9.4, platelet count 125, BMP was significant for BUN of 35, creatinine 5.91, lactic acid 2.7. Patient admits to having dialysis yesterday, but did not complete dialysis because of pain. Past Medical History Past Medical History (Chronic Problems): Chronic Problems (Last Reviewed 07/27/18 @ 11:56 by Pricila Olson) CAD (coronary artery disease) (Chronic) Stented coronary artery (Chronic 02/26/18) FFR of LAD 0.82; VIKY of mid LAD with 2.5 X 24 mm Promus Synergy, OM <50% stenosis per Dr. Magdaleno @ [facility] Atherosclerotic heart disease of [place] coronary artery without angina pectoris (Chronic) S/P PTCA/VIKY to mid LAD in February 2018 OM #1 noted to be 50%; ESRD (end stage renal disease) on dialysis (Chronic) Decubitus ulcer, stage III (Chronic) Anemia, chronic disease (Chronic) Pilonidal cyst with abscess (Chronic) GABRIEL (obstructive sleep apnea) (Chronic) Depression (Chronic) Anxiety (Chronic) HTN (hypertension) (Chronic) Nonischemic cardiomyopathy (Chronic) EF 45% per echo 07/01/2018 S/P repair of PDA (patent ductus arteriosus) (Chronic) At young age Diabetes mellitus type 1 (Chronic) Hyperlipidemia (Chronic) Obesity (BMI 30.0-34.9) (Chronic) Gastroparesis (Chronic) Medical History: Medical History (Last Reviewed 07/27/18 @ 11:56 by Pricila Olson) Atherosclerotic heart disease of [place] coronary artery without angina pectoris (Chronic) I25.10 S/P PTCA/VIKY to mid LAD in February 2018 OM #1 noted to be 50%; ESRD (end stage renal disease) on dialysis (Chronic) N18.6, Z99.2 Decubitus ulcer, stage III (Chronic) L89.93 Anemia, chronic disease (Chronic) D63.8 Pilonidal cyst with abscess (Chronic) L05.01 GABRIEL (obstructive sleep apnea) (Chronic) G47.33 HTN (hypertension) (Chronic) I10 Nonischemic cardiomyopathy (Chronic) I42.8 EF 45% per echo 07/01/2018 Diabetes mellitus type 1 (Chronic) Hyperlipidemia (Chronic) E78.5 Obesity (BMI 30.0-34.9) (Chronic) E66.9 Gastroparesis (Chronic) K31.84 Allergies latex Allergy (Verified 08/09/18 13:51) Rash prochlorperazine [From Compazine] Allergy (Verified 08/09/18 13:51) Unknown levofloxacin [From Levaquin] Adverse Reaction (Verified 08/09/18 13:51) PT CAN'T REMEMBER PT CAN'T REMEMBER metoclopramide HCl [From Reglan] Adverse Reaction (Verified 08/09/18 13:51) Nausea NSAIDS (Non-Steroidal Anti-Inflamma Adverse Reaction (Verified 08/09/18 13:51) kidney function oxycodone HCl [From Percocet] Adverse Reaction (Verified 08/09/18 13:51) HALLUCINATIONS Home Medications: Ambulatory Orders Medication Instructions Recorded Aspirin [Aspirin, Baby] 81 mg PO DAILY@0800 01/26/16 Calcium Acetate [Phoslo Gel Cap] 1,334 mg PO TIDCM 01/26/16 Ergocalciferol [Vitamin D] 50,000 unit PO MO 01/26/16 Insulin Aspart [Novolog Flexpen] 10 units SC TIDCM 01/26/16 Insulin Glargine,Hum.rec.anlog 4 unit SQ QHS 01/09/17 [Lantus] proMETHazine tablet [Phenergan 25 mg PO Q6H PRN PRN #10 tab 03/06/17 tablet] Lisinopril 20 mg PO DAILY 03/29/17 Sodium Bicarbonate 650 mg PO 4X/DAY 03/29/17 Atorvastatin Calcium [Lipitor] 20 mg PO QHS 05/26/18 Carvedilol [Coreg] 25 mg PO BID 05/26/18 Loperamide HCl [Imodium A-D] 2 mg PO TID PRN 05/26/18 Pantoprazole Sodium [Protonix] 20 mg PO BID 05/26/18 Clopidogrel Bisulfate [Plavix] 75 mg PO DAILY 07/01/18 Albuterol Aerosols [Ventolin 2.5 mg INHALATION Q2H PRN PRN #30 07/03/18 Aerosols] vial.neb. Lidocaine/Prilocaine HCl [Emla 1 applicatio TOPICAL X1 #1 tube 07/03/18 Cream W/Tegaderm] ALPRAZolam [Xanax] 0.5 mg PO PRN PRN 08/09/18 Acetaminophen 650 mg PO PRN PRN 08/09/18 B Complex W-C No.20/Folic Acid 1 mg PO DAILY 08/09/18 [Nephrocaps Softgel] Fluoxetine HCl 40 mg PO DAILY 08/09/18 Hydroxyzine HCl 50 mg PO TUTHSA 08/09/18 Isosorbide Mononitrate [Imdur] 60 mg PO DAILY 08/09/18 Surgical History: Surgical History (Last Reviewed 01/04/19 @ 11:56 by Pricila Olson) Stented coronary artery (Chronic) Onset Date: 02/26/18 Z95.5 FFR of LAD 0.82; VIYK of mid LAD with 2.5 X 24 mm Promus Synergy, OM <50% stenosis per Dr. Magdaleno @ [facility] S/P repair of PDA (patent ductus arteriosus) (Chronic) Z98.890, Z87.74 At young age Surgical History: appendectomy, hysterectomy - and BSO, - - c-sections, L breast I+D for abscess, fistula placement LUE, L ankle surgery, appendectomy, PDA repair. Excision pilonidal cyst ulcer about 4 years ago. Colostomy placed due to rectal abscess/wound, patent ductus repair, drug-eluting stent placement left anterior descending coronary artery February 2018. Lives: With Family Smoking Status: Current some day smoker Tobacco Use: Cigarettes Alcohol: None Drugs: None - *Family History Maternal History Items: Cancer, COPD, Diabetes, Hypertension, Renal Disease, Stroke Paternal History Items: Diabetes Sibling History Items: Cancer, Diabetes Review of Systems Constitutional: Reports: Anorexia, Chills, Fever, Malaise, Weakness. Denies: Weight Change Eyes: Denies: Blurred vision, Cataracts, Conjunctivae Inflammation, Double vision, Pain, Redness, Vision Change HEENT: Denies: Difficulty Hearing, Difficulty Swallowing, Head Aches, Hearing Changes, Nasal bleeding, Nasal Congestion, Sinus Congestion, Sinus Drainage, Sore Throat Cardiovascular: Denies: Chest Pain, Claudication, Chest Pressure, Chest Tightness, Orthopnea, Palpitations, Paroxysmal Noc. Dyspnea Respiratory: Denies: Cough, Hemoptysis, Pleuritic Pain, Shortness of breath at rest, Shortness of breath upon exertion, Sputum production, Wheezing Gastrointestinal: Reports: Abdominal Pain. Denies: Constipation, Diarrhea, Dyspepsia, Hematochezia, Nausea, Vomiting Genitourinary: Denies: Dysuria, Frequency Gynecological: Denies: Breast symptoms, Vaginal discharge Musculoskeletal: Denies: Joint Pain, Joint stiffness, Joint swelling, Joint Tenderness Skin: Denies: Pruritis, Rash, Wounds Neurological: Denies: Difficulty swallowing, Focal weakness, Numbness, Tingling Psychiatric: Denies: Anxiety, Depression, Homicidal Ideations, Suicidal Ideations Hematologic/ Lymphatic: Denies: Easy Bruising, Easy Bleeding VTE Information - Inpt Only VTE Present on Admission: No VTE Pharm Prophylaxis ordered?: Yes Patient Problems: Active and Suspected Problems (Last Reviewed 07/27/18 @ 11:56 by Pricila Olson) Cellulitis (Acute) - Physical Exam General: Alert, Oriented x3, Cooperative, No apparent distress, - - on 3L oxygen HEENT: Atraumatic, PERRLA, EOMI, Normocephalic Oral: Moist Mucosa Neck: Supple, No JVD, Negative Carotid Bruits Lungs: Clear to auscultation, Normal air movement Cardiovascular: Regular rate, Regular Rhythm, Normal S1, Normal S2, No murmurs Abdomen: Bowel Sounds Present, Soft, No Hepato-splenomegaly, - - Erythema of the anterior abdominal wall with redness from the upper abdomen to the suprapubic region, slight purulent discharge from the pannus and previous suprapubic c atheter site. Extremities: No edema Skin: No rashes, No breakdown Musculoskeletal: No Tenderness to Palpation of Joints or Extremities Lymphatic: No Cervical, Supraclavicular, or Inguinal Adenopathy Neurological: Cranial nerves II-XII grossly intact, Neuro grossly intact Psych/Mental Status: Normal Affect, Appropriate Vital Signs Temp Pulse Resp BP Pulse Ox 98.2 F 89 20 H 129/93 H 90 08/09/18 15:05 08/09/18 15:05 08/09/18 15:05 08/09/18 13:50 08/09/18 15:05 Oxygen Delivery Method Room Air Weight: 92.2 kg Body Mass Index (BMI) 32.8 Finger Stick Blood Glucose 118 Laboratory Tests Past 24 Hrs 08/09/18 08/09/18 08/09/18 14:05 14:05 14:05 WBC 4.9 RBC 3.06 L Hgb 9.4 L Hct 32.0 L MCV 104.6 H MCH 30.7 MCHC 29.4 L RDW 17.9 H RDW Differential 67.2 H Plt Count 125 L MPV 9.3 Immature Gran % (Auto) 0.400 Neut % (Auto) 77.7 H Lymph % (Auto) 17.0 L [place] % (Auto) 3.9 Eos % (Auto) 0.8 Baso % (Auto) 0.2 Absolute Neuts (auto) 3.8 Absolute Lymphs (auto) 0.83 Total Counted Not Reportable Differential Comment COMMENT Sodium 139 Potassium 3.7 Chloride 99 Carbon Dioxide 30.0 Anion Gap 10 BUN 35 H Creatinine 5.91 H Estim Creat Clear Calc 11.37 Est GFR (MDRD) Af Amer 10 L Est GFR (MDRD) Non-Af 8 L BUN/Creatinine Ratio 5.9 L Glucose 258 H Lactic Acid 2.7 H Calcium 8.2 L Assessment/Plan All Active Problems (Last Reviewed 07/27/18 @ 11:56 by Pricila Olson) Cellulitis (Acute) Nausea & vomiting (Resolved) Migraine (Resolved) Metabolic encephalopathy (Resolved) Chest pain (Acute) Tooth abscess (Resolved) Intractable nausea and vomiting (Resolved) Pneumonia (Resolved) Pulmonary edema (Resolved) Hyperkalemia (Resolved) Atypical chest pain (Resolved) Acute hypoxic respiratory failure (Resolved) Pulmonary edema (Resolved) Clostridium difficile enterocolitis (Resolved) Necrotizing myositis (Resolved) Dysmenorrhea (Resolved) Hx of necrotizing fascIItis (Resolved) Iron deficiency anemia due to chronic blood loss (Resolved) Systolic congestive heart failure (Resolved) 42 year old F with past medical history of ESRD on hemodialysis (), history of necrotizing fasciitis in 2008 after section status post colostomy, history of nonischemic cardiomyopathy, comes in with complaints of anterior abdominal wall redness and pain ongoing for 2 days. 1. Cellulitis of the anterior abdominal wall, no signs of sepsis, no SIRS criteria, history of necrotizing fasciitis Plan: Admit to [facility], continue on IV Unasyn and vancomycin started in the emergency department, ID consult, pain control, IV hydration 2. Elevated lactic acid, likely related to cellulitis versus dehydration but no signs of sepsis per criteria, will trend 3. ESRD on hemodialysis, followed Monday, Monday 4. Chronic systolic EF, nonischemic cardiomyopathy, previous workup has been negative, history of CAD status post stent 5. 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 Hypertension, controlled, continue home regimen 7. Hyperlipidemia, on statin 8. Anxiety/depression, continue home regimen 9. Nicotine dependence, advised to quit, nicotine replacement offered 10. Obesity, BMI 32.8, diet and exercise is recommended 11. GERD, on PPI 12. DVT PPx- Heparin SC Code Visit Inpatient E&M: 35511 Init Hosp L3
[2018-08-09 17:06] LABS: Bedside Glucose 174 mg/dL (70-110)
[2018-08-09] MEDS: Morphine 2 MG/ML Syringe 1 MG IV ×2 (17:25→21:31)
[2018-08-09] MEDS: 0.9% NaCl Peripheral Flush Adult/Peds IV (17:26)
[2018-08-09] MEDS: Insulin Lispro 100 UNIT/ML INSULN.PEN 10 UNIT SC (17:29)
[2018-08-09] MEDS: Insulin Lispro 100 UNIT/ML INSULN.PEN SQ (17:30)
[2018-08-09] MEDS: proMETHazine 25 MG Tablet PO ×2 (18:12→23:59)
[2018-08-09] MEDS: Calcium Acetate 667 MG Capsule 1334 MG PO (18:13)
[2018-08-09] MEDS: Sodium Bicarbonate 650 MG Tablet PO ×2 (18:15→21:34)
[2018-08-09 18:26] LABS: Reflex Lactate? Y
[2018-08-09 19:21] LABS: Lactic Acid 1.7 mmol/L (0.4-2.0)
[2018-08-09] MEDS: Carvedilol 25 MG Tablet PO (21:33)
[2018-08-09] MEDS: Atorvastatin Calcium 20 MG Tablet PO (21:33)
[2018-08-09] MEDS: Pantoprazole Sodium 20 MG Tablet PO (21:33)
[2018-08-09 22:10] LABS: Bedside Glucose 122 mg/dL (70-110)
[2018-08-09 22:11] LABS: Bacteria 0 SEEN /hpf (None Seen); Mucous, Urine 0 SEEN /hpf (<or=2+)
[2018-08-09 22:17] LABS: Color, Urine Yellow (Yellow); Glucose, Dipstick 250 mg/dl (Normal); Ketone-Dipstick Negative (Negative); Leukocyte Esterase-Dipstick 100 /ul (Negative); Nitrite-Dipstick Negative (Negative); Occult Blood-Urine 25 /ul (Negative); Protein-Dipstick 500 mg/dl (Negative); Urine Bilirubin Dipstick Negative (Negative); Urine Clarity Clear (Clear); Urine Urobilinogen Normal (Normal)
[2018-08-09 22:21] LABS: Amorphous Sediment 1+ PHOS; Hyaline Cast 0-5 SEEN /lpf (0-5); Red Blood Cells-Urine 0-5 SEEN /hpf (0-5); Squamous Epithelial Cells - UA 0-5 SEEN /hpf (5-10); White Blood Cells 25-50 SEEN /hpf (0-5)
[2018-08-10] VITALS (11 sets, daily range): BP systolic 100–145; BP diastolic 52–83; PULSE 72–91; RESP 18–20; TEMP 36.7–36.9; O2SAT 96–98
[2018-08-10] MEDS: Morphine 2 MG/ML Syringe 1 MG IV ×3 (01:59→11:44)
--- NOTE | 2018-08-10 05:36 | PCM.RX.CS ---
Consult Pharmacy has been consulted to manage selected antiobiotic: Vancomycin Type of Consult: New start Labs: Sodium 139 mmol/L (136-145) 08/09/18 14:05 Potassium 3.7 mmol/L (3.5-5.1) 08/09/18 14:05 Chloride 99 mmol/L (98-107) 08/09/18 14:05 Carbon Dioxide 30.0 mmol/L (21.0-32.0) 08/09/18 14:05 Anion Gap 10 (5-15) 08/09/18 14:05 BUN 35 mg/dL (7-18) H 08/09/18 14:05 Creatinine 5.91 mg/dL (0.55-1.02) H 08/09/18 14:05 Est GFR (MDRD) Af Amer 10 mL/min (>60) L 08/09/18 14:05 Est GFR (MDRD) Non-Af 8 mL/min (>60) L 08/09/18 14:05 BUN/Creatinine Ratio 5.9 RATIO (10-20) L 08/09/18 14:05 Glucose 258 mg/dL (74-106) H 08/09/18 14:05 Weight used for dosin.67 kg Estimated Creatinine Clearance: 11.37 Goal Trough: 15-20 mcg/mL Pharmacy Plan for Drug Dosing: Pharmacy Service will continue to monitor and adjust dosing as required. Medications Vancomycin HCl 750 mg/ Sodium (Chloride) 265 mls @ 250 mls/hr IV X1 ONE Stop: 08/11/18 11:03 Discontinued Medications Vancomycin HCl 1,500 mg/ (Sodium Chloride) 530 mls @ 250 mls/hr IV X1 ONE Stop: 08/09/18 17:07 Last Admin: 08/09/18 16:04 Dose: 250 mls/hr PATIENT ON DIALYSIS THERESE LAGUERRE SAT NEXT DOSE ON 08/11 TROUGH ON 08/14 PRIOR TO DIALYSIS Follow-Up Labs: Trough Vancomycin Labs to be done on [date and time ordered]: 08/14 PRIOR TO DIALYSIS
[2018-08-10 06:05] LABS: Anion Gap 11 (5-15); BUN 46 mg/dL (7-18); BUN/Creat Ratio 6.5 RATIO (10-20); Calcium,Total 8.3 mg/dL (8.5-10.1); Chloride 99 mmol/L (98-107); Creatinine, Serum 7.04 mg/dL (0.55-1.02); EST Glomerular Filtration Rate 7 mL/min (>60); Est Glom Filt Rate - Afr Amer 8 mL/min (>60); Estimated Creatinine Clearance 9.55 ml/min; Glucose 195 mg/dL (74-106); Potassium 4.8 mmol/L (3.5-5.1); Sodium Level 138 mmol/L (136-145)
[2018-08-10 06:14] LABS: Hematocrit 31.7 % (37-47); Hemoglobin 9.2 g/dl (12.0-15.0); Mean Corpuscular Hgb 31.2 pg (27.0-32.0); Mean Corpuscular Volume 107.5 fL (81-99); Mean Platelet Vol. 9.2 fl (6.2-12.0); Platelet Count 138 K/mm3 (150-450); RBC Distribution Width CV 17.4 % (11.6-14.6); RBC Distribution Width SD 65.2 fl (35.1-43.9); Red Blood Count 2.95 M/mm3 (4.2-5.4); White Blood Count 5.4 K/mm3 (4.4-11.0)
[2018-08-10 06:17] LABS: Scan Indicated on CBC? Y/N YES- FLAGS NOTED
[2018-08-10 07:03] LABS: Differential Comment SCAN
[2018-08-10] MEDS: Isosorbide Mononitrate 60 MG Tablet PO (08:29)
[2018-08-10] MEDS: Clopidogrel Bisulfate 75 MG Tablet PO (08:30)
[2018-08-10] MEDS: FLUoxetine 20 MG Capsule 40 MG PO (08:30)
[2018-08-10] MEDS: Sodium Bicarbonate 650 MG Tablet PO ×4 (08:30→21:32)
[2018-08-10] MEDS: Lisinopril 20 MG Tablet PO (08:31)
[2018-08-10] MEDS: Aspirin 81 MG TAB.CHEW PO (08:31)
[2018-08-10] MEDS: Calcium Acetate 667 MG Capsule 1334 MG PO ×3 (08:31→15:52)
[2018-08-10] MEDS: Pantoprazole Sodium 20 MG Tablet PO ×2 (08:32→21:32)
[2018-08-10] MEDS: Insulin Lispro 100 UNIT/ML INSULN.PEN 10 UNIT SC ×3 (08:33→15:53)
[2018-08-10] MEDS: Insulin Lispro 100 UNIT/ML INSULN.PEN SQ (08:33)
--- NOTE | 2018-08-10 08:34 | PN_ITS ---
Patient Problems: Active and Suspected Problems (Last Reviewed 07/27/18 @ 11:56 by Pricila Olson) Cellulitis (Acute) Subjective: Patient was seen and examined. Feels improved. No more fever or chills or worsening SOB or chest pain. No acute events. Erythema of anterior abdominal wall has remarkably improved; some still remain. Objective: Physical Exam General: Alert, Oriented x3, Cooperative, No apparent distress, - - on 3L oxygen HEENT: Atraumatic, PERRLA, EOMI, Normocephalic Oral: Moist Mucosa Neck: Supple, No JVD, Negative Carotid Bruits Lungs: Clear to auscultation, Normal air movement Cardiovascular: Regular rate, Regular Rhythm, Normal S1, Normal S2, No murmurs Abdomen: Bowel Sounds Present, Soft, No Hepato-splenomegaly, - - Improved erythema of the anterior abdominal wall with redness remaining in the lower abdomen especially suprapubic region. Extremities: No edema Skin: No rashes, No breakdown Musculoskeletal: No Tenderness to Palpation of Joints or Extremities Lymphatic: No Cervical, Supraclavicular, or Inguinal Adenopathy Neurological: Cranial nerves II-XII grossly intact, Neuro grossly intact Psych/Mental Status: Normal Affect, Appropriate Vitals/I&O's: Vital Signs Temp Pulse Resp BP Pulse Ox 98.1 F 81 20 H 145/69 H 98 08/10/18 08:19 08/10/18 08:19 08/10/18 08:19 08/10/18 08:19 08/10/18 08:19 Oxygen Flow Rate (L/min) 3 Oxygen Delivery Method Nasal Cannula Weight: 90.5 kg Body Mass Index (BMI) 32.2 Finger Stick Blood Glucose 118 Intake and Output for Last 24 Hours 08/08/18 08/09/18 08/10/18 23:59 23:59 23:59 Intake Total 1200 / 1200 900 / 900 Output Total 100 / 100 Balance 1200 / 1200 800 / 800 Laboratory Results 08/09/18 14:05: WBC 4.9, RBC 3.06 L, Hgb 9.4 L, Hct 32.0 L, MCV 104.6 H, MCH 30.7, MCHC 29.4 L, RDW 17.9 H, RDW Differential 67.2 H, Plt Count 125 L, MPV 9.3, Immature Gran % (Auto) 0.400, Neut % (Auto) 77.7 H, Lymph % (Auto) 17.0 L, [place] % (Auto) 3.9, Eos % (Auto) 0.8, Baso % (Auto) 0.2, Absolute Neuts (auto) 3 .8, Absolute Lymphs (auto) 0.83, Total Counted Not Reportable, Differential Comment COMMENT 08/09/18 14:05: Sodium 139, Potassium 3.7, Chloride 99, Carbon Dioxide 30.0, Anion Gap 10, BUN 35 H, Creatinine 5.91 H, Estim Creat Clear Calc 11.37, Est GFR (MDRD) Af Amer 10 L, Est GFR (MDRD) Non-Af 8 L, BUN/Creatinine Ratio 5.9 L, Glucose 258 H, Calcium 8.2 L 08/09/18 14:05: Lactic Acid 2.7 H 08/09/18 17:03: POC Glucose 174 H 08/09/18 18:50: Lactic Acid 1.7 08/09/18 21:36: POC Glucose 122 H 08/09/18 22:05: Urine Color Yellow, Urine Clarity Clear, Urine pH 7.0, Ur Specific [place] 1.010, Urine Protein 500 H, Urine Glucose (UA) 250 H, Urine Ketones Negative, Urine Occult Blood 25 H, Urine Nitrite Negative, Urine Bilirubin Negative, Urine Urobilinogen Normal, Ur Leukocyte Esterase 100 H, Urine RBC 0-5 SEEN, Urine WBC 25-50 SEEN, Ur Squamous Epith Cells 0-5 SEEN, Amorphous Sediment 1+ PHOS, Urine Bacteria 0 SEEN, Hyaline Casts 0-5 SEEN, Urine Mucus 0 SEEN 08/10/18 05:14: WBC 5.4, RBC 2.95 L, Hgb 9.2 L, Hct 31.7 L, MCV 107.5 H, MCH 31.2, MCHC 29.0 L, RDW 17.4 H, RDW Differential 65.2 H, Plt Count 138 L, MPV 9.2, Differential Comment SCAN 08/10/18 05:14: Sodium 138, Potassium 4.8, Chloride 99, Carbon Dioxide 28.0, Anion Gap 11, BUN 46 H, Creatinine 7.04 H, Estim Creat Clear Calc 9.55, Est GFR (MDRD) Af Amer 8 L, Est GFR (MDRD) Non-Af 7 L, BUN/Creatinine Ratio 6.5 L, Glucose 195 H, Calcium 8.3 L Current Medications Acetaminophen (Tylenol) 650 mg PO Q6H PRN PRN PRN Reason: PAIN Albuterol Sulfate (Ventolin Aerosols) 2.5 mg INHALATION Q2H PRN PRN PRN Reason: dyspnea, wheezing Aspirin (Aspirin, Baby) 81 mg PO DAILY@0800 [facility] Atorvastatin Calcium (Lipitor) 20 mg PO QHS [facility] Last Admin: 08/09/18 21:33 Dose: 20 mg Calcium Acetate (Phoslo Gel Cap) 1,334 mg PO TIDCM [facility] Last Admin: 08/09/18 18:13 Dose: 1,334 mg Carvedilol (Coreg) 25 mg PO BID [facility] Last Admin: 08/09/18 21:33 Dose: 25 mg Clopidogrel Bisulfate (Plavix) 75 mg PO DAILY [facility] Dextrose (D50w Syringe) 0 gm IV X1 PRN; Protocol PRN Reason: Hypoglycemia Ergocalciferol (Vitamin D) 50,000 unit PO MO [facility] Fluoxetine HCl (Prozac) 40 mg PO DAILY [facility] Glucagon () 1 mg IM .X1 PRN PRN Reason: Hypoglycemia Hydroxyzine Pamoate (Vistaril Pamoate Capsule) 50 mg PO TuThSa@1000 [facility] Ampicillin Sodium/Sulbactam Sodium 1,500 mg/ Sodium Chloride 50 mls @ 100 mls/hr IV DAILY [facility] Vancomycin IV Pharmacy to Dose (1 ea/ Sodium Chloride) 500 mls @ 250 mls/hr IV X1 PRN; Protocol PRN Reason: Rx to Dose Vancomycin HCl 750 mg/ Sodium (Chloride) 265 mls @ 250 mls/hr IV X1 ONE Stop: 08/11/18 11:03 Influenza Virus Vaccine Quadrival (Fluarix/Fluzone) 0.5 ml IM .ONCE ONE Stop: 08/10/18 10:01 Insulin Glargine (Lantus (Bkc)) 4 units SC QHS [facility] Last Admin: 08/09/18 21:40 Dose: 4 u Insulin Human Lispro (Humalog Kwikpen (Bkc)) 10 unit SC 0800,1200,1700 [facility] Last Admin: 08/09/18 17:29 Dose: 10 u Insulin Human Lispro (Humalog Kwikpen (Bkc)) 0 unit SQ ACHS [facility]; Protocol Last Admin: 08/09/18 21:38 Dose: Not Given Isosorbide Mononitrate (Imdur) 60 mg PO DAILY [facility] Lisinopril (Zestril) 20 mg PO DAILY [facility] Loperamide HCl (Imodium) 2 mg PO TID PRN PRN Reason: STOOLING Morphine Sulfate () 1 mg IV Q4H PRN PRN PRN Reason: SEVERE PAIN (6-10/10) Last Admin: 08/10/18 06:07 Dose: 1 mg Multivit/Ca Carb/B Cmplx/FA/Prenat (Nephrocaps, Renaphro) 1 capsule PO DAILY [facility] Pantoprazole Sodium (Protonix) 20 mg PO BID [facility] Last Admin: 08/09/18 21:33 Dose: 20 mg Promethazine HCl (Phenergan Tablet) 25 mg PO Q6H PRN PRN PRN Reason: NAUSEA Last Admin: 08/09/18 23:59 Dose: 25 mg Sodium Bicarbonate (Sodium Bicarbonate) 650 mg PO 4X/DAY [facility] Last Admin: 08/09/18 21:34 Dose: 650 mg Sodium Chloride () 5 - 15 ml IV UD PRN PRN Reason: SALINE FLUSH Last Admin: 08/09/18 17:26 Dose: 10 ml Medical Necessity - Tobacco Use Smoking Status: Current some day smoker Tobacco Use: Cigarettes Assessment/Plan All Active Problems (Last Reviewed 07/27/18 @ 11:56 by Pricila Olson) Cellulitis (Acute) Nausea & vomiting (Resolved) Migraine (Resolved) Metabolic encephalopathy (Resolved) Chest pain (Acute) Tooth abscess (Resolved) Intractable nausea and vomiting (Resolved) Pneumonia (Resolved) Pulmonary edema (Resolved) Hyperkalemia (Resolved) Atypical chest pain (Resolved) Acute hypoxic respiratory failure (Resolved) Pulmonary edema (Resolved) Clostridium difficile enterocolitis (Resolved) Necrotizing myositis (Resolved) Dysmenorrhea (Resolved) Hx of necrotizing fascIItis (Resolved) Iron deficiency anemia due to chronic blood loss (Resolved) Systolic congestive heart failure (Resolved) 42 year old F with past medical history of ESRD on hemodialysis (), history of necrotizing fasciitis in 2008 after section status post colostomy, history of nonischemic cardiomyopathy, comes in with complaints of anterior abdominal wall redness and pain ongoing for 2 days. 1. Cellulitis of the anterior abdominal wall, no signs of sepsis, no SIRS criteria, history of necrotizing fasciitis, improving, on IV Unasyn and vancomycin, ID consulted, recommend doxycycline Augmentin at discharge for 5-7 more days 2. Elevated lactic acid, likely related to cellulitis versus dehydration, resolved 3. Anterior abdominal wall pannus Marifer intertrigo, present on admission, nystatin powder ordered 4. ESRD on hemodialysis, via LUE fistula, partially completed dialysis on , next dialysis on Monday 5. Chronic systolic EF, nonischemic cardiomyopathy, previous workup has been negative, history of CAD status post stent, no signs of acute exacerbation of CHF 6. 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 Hypertension, controlled, continue home regimen 8. Hyperlipidemia, on statin 9. Anxiety/depression, continue home regimen 10. Nicotine dependence, advised to quit, use nicotine replacement 11. Obesity, BMI 32.8, diet and exercise is recommended 12. GERD, on PPI 13. DVT PPx- Heparin SC Code Visit Inpatient E&M: 12341 Subs Hosp L2
[2018-08-10] MEDS: Folic Acid/Vitamin B Comp W-C 1 Capsule 1 CAP PO ×2 (08:36→15:52)
[2018-08-10] MEDS: Carvedilol 25 MG Tablet PO ×2 (08:37→21:32)
--- NOTE | 2018-08-10 08:40 | CASEMGMT ---
Social Work Note industrial engineering technologist questions state pt doesn't have Living Will or HCPOA and denied education or completing advanced directives. Viktoria Lunsford SENIOR MEDICAL DIRECTOR, PUBLICATION DIRECTOR
[2018-08-10 09:25] LABS: Bedside Glucose 158 mg/dL (70-110)
--- NOTE | 2018-08-10 09:32 | NURSING ---
stoma photo: abdomen
--- NOTE | 2018-08-10 09:37 | NURSING ---
Was asked to see patient for redness to abdomen and peristomal area. removed ostomy appliance. there is no redness or open areas to the peristomal skin. stoma is pink. measures approx 1 3/4 and is slightly oval in shape. cleansed peristomal skin with warm water. pat dry. applied a flat 2 piece Soumya appliance. the redness to the abdomen has improved per Dr Pressley. the redness extends down toward the old scar. no open areas noted. will monitor.
[2018-08-10] MEDS: Nystatin Powder 15gm Bottle 1 APPLIC TOPICAL ×2 (10:37→21:32)
[2018-08-10] MEDS: 0.9% NaCl Peripheral Flush Adult/Peds IV (10:43)
--- NOTE | 2018-08-10 11:50 | PCM.CONS.R ---
Problem List (1) ESRD (end stage renal disease) on dialysis Status: Chronic Consultation - Renal PCP/ Referring MD: Requesting physician: [] Primary care physician: Christopher Foy MD - History of Present Illness History of Present Illness: The patient is a 42 year old F past medical history of end-stage renal disease on TTS schedule . Last hemodialysis was yesterday . Patient presented to the hospital this time with lower abdominal pain redness and pain . Patient was admitted for cellulitis treatment . Patient has left upper extremity AV fistula which is functioning well . Patient was started on vancomycin and Unasyn to treat the cellulitis . Patient feels slightly better . No shortness of breath no nausea no vomiting today .. Review of system : 12 system review is negative except for lower abdominal pain and redness which are improving [] - Allergies Allergies: Allergies latex Allergy (Verified 08/09/18 13:51) Rash prochlorperazine [From Compazine] Allergy (Verified 08/09/18 13:51) Unknown levofloxacin [From Levaquin] Adverse Reaction (Verified 08/09/18 13:51) PT CAN'T REMEMBER PT CAN'T REMEMBER metoclopramide HCl [From Reglan] Adverse Reaction (Verified 08/09/18 13:51) Nausea NSAIDS (Non-Steroidal Anti-Inflamma Adverse Reaction (Verified 08/09/18 13:51) kidney function oxycodone HCl [From Percocet] Adverse Reaction (Verified 08/09/18 13:51) HALLUCINATIONS - Current Medications Current Medications: Current Medications Acetaminophen (Tylenol) 650 mg PO Q6H PRN PRN PRN Reason: PAIN Albuterol Sulfate (Ventolin Aerosols) 2.5 mg INHALATION Q2H PRN PRN PRN Reason: dyspnea, wheezing Aspirin (Aspirin, Baby) 81 mg PO DAILY@0800 [facility] Last Admin: 08/10/18 08:31 Dose: 81 mg Atorvastatin Calcium (Lipitor) 20 mg PO QHS [facility] Last Admin: 08/09/18 21:33 Dose: 20 mg Calcium Acetate (Phoslo Gel Cap) 1,334 mg PO TIDCM [facility] Last Admin: 08/10/18 08:31 Dose: 1,334 mg Carvedilol (Coreg) 25 mg PO BID [facility] Last Admin: 08/10/18 08:37 Dose: 25 mg Clopidogrel Bisulfate (Plavix) 75 mg PO DAILY [facility] Last Admin: 08/10/18 08:30 Dose: 75 mg Dextrose (D50w Syringe) 0 gm IV X1 PRN; Protocol PRN Reason: Hypoglycemia Ergocalciferol (Vitamin D) 50,000 unit PO MO [facility] Fluoxetine HCl (Prozac) 40 mg PO DAILY [facility] Last Admin: 08/10/18 08:30 Dose: 40 mg Glucagon () 1 mg IM .X1 PRN PRN Reason: Hypoglycemia Heparin Sodium (Porcine) (Heparin Na) 5,000 unit SC Q8 [facility] Hydroxyzine Pamoate (Vistaril Pamoate Capsule) 50 mg PO TuThSa@1000 [facility] Ampicillin Sodium/Sulbactam Sodium 1,500 mg/ Sodium Chloride 50 mls @ 100 mls/hr IV DAILY [facility] Last Admin: 08/10/18 10:41 Dose: 100 mls/hr Vancomycin IV Pharmacy to Dose (1 ea/ Sodium Chloride) 500 mls @ 250 mls/hr IV X1 PRN; Protocol PRN Reason: Rx to Dose Vancomycin HCl 750 mg/ Sodium (Chloride) 265 mls @ 250 mls/hr IV X1 ONE Stop: 08/11/18 11:03 Insulin Glargine (Lantus (Bkc)) 4 units SC QHS [facility] Last Admin: 08/09/18 21:40 Dose: 4 u Insulin Human Lispro (Humalog Kwikpen (Bkc)) 10 unit SC 0800,1200,1700 [facility] Last Admin: 08/10/18 08:33 Dose: 10 u Insulin Human Lispro (Humalog Kwikpen (Bkc)) 0 unit SQ ACHS [facility]; Protocol Last Admin: 08/10/18 08:33 Dose: 1 units Isosorbide Mononitrate (Imdur) 60 mg PO DAILY [facility] Last Admin: 08/10/18 08:29 Dose: 60 mg Lisinopril (Zestril) 20 mg PO DAILY [facility] Last Admin: 08/10/18 08:31 Dose: 20 mg Loperamide HCl (Imodium) 2 mg PO TID PRN PRN Reason: STOOLING Morphine Sulfate () 1 mg IV Q4H PRN PRN PRN Reason: SEVERE PAIN (6-10/10) Last Admin: 08/10/18 06:07 Dose: 1 mg Multivit/Ca Carb/B Cmplx/FA/Prenat (Nephrocaps, Renaphro) 1 capsule PO DAILY [facility] Last Admin: 08/10/18 08:36 Dose: 1 capsule Nystatin (Mycostatin Powder) 1 applic TOPICAL BID [facility]; Protocol Last Admin: 08/10/18 10:37 Dose: 1 applic Pantoprazole Sodium (Protonix) 20 mg PO BID [facility] Last Admin: 08/10/18 08:32 Dose: 20 mg Promethazine HCl (Phenergan Tablet) 25 mg PO Q6H PRN PRN PRN Reason: NAUSEA Last Admin: 08/09/18 23:59 Dose: 25 mg Sodium Bicarbonate (Sodium Bicarbonate) 650 mg PO 4X/DAY [facility] Last Admin: 08/10/18 08:30 Dose: 650 mg Sodium Chloride () 5 - 15 ml IV UD PRN PRN Reason: SALINE FLUSH Last Admin: 08/10/18 10:43 Dose: 10 ml - Past Medical History Past Medical History (Chronic Problems): Chronic Problems (Last Reviewed 07/27/18 @ 11:56 by Pricila Olson) CAD (coronary artery disease) (Chronic) Stented coronary artery (Chronic 02/26/18) FFR of LAD 0.82; VIKY of mid LAD with 2.5 X 24 mm Promus Synergy, OM <50% stenosis per Dr. Magdaleno @ [facility] Atherosclerotic heart disease of [place] coronary artery without angina pectoris (Chronic) S/P PTCA/VIKY to mid LAD in February 2018 OM #1 noted to be 50%; ESRD (end stage renal disease) on dialysis (Chronic) Decubitus ulcer, stage III (Chronic) Anemia, chronic disease (Chronic) Pilonidal cyst with abscess (Chronic) GABRIEL (obstructive sleep apnea) (Chronic) Depression (Chronic) Anxiety (Chronic) HTN (hypertension) (Chronic) Nonischemic cardiomyopathy (Chronic) EF 45% per echo 07/01/2018 S/P repair of PDA (patent ductus arteriosus) (Chronic) At young age Diabetes mellitus type 1 (Chronic) Hyperlipidemia (Chronic) Obesity (BMI 30.0-34.9) (Chronic) Gastroparesis (Chronic) - Past Surgical History Surgical History: appendectomy, hysterectomy - and BSO, - - c-sections, L breast I+D for abscess, fistula placement LUE, L ankle surgery, appendectomy, PDA repair. Excision pilonidal cyst ulcer about 4 years ago. Colostomy placed due to rectal abscess/wound, patent ductus repair, drug-eluting stent placement left anterior descending coronary artery February 2018. - Social History Smoking Status: Current some day smoker Alcohol: None Drugs: None - Family History Maternal History Items: Cancer, COPD, Diabetes, Hypertension, Renal Disease, Stroke Paternal History Items: Diabetes Sibling History Items: Cancer, Diabetes Patient Problems: Active and Suspected Problems (Last Reviewed 07/27/18 @ 11:56 by Pricila Olson) Cellulitis (Acute) - Physical Exam General: Alert, Oriented x3 HEENT: Atraumatic, PERRLA Oral: Moist Mucosa Neck: Supple, No JVD Lungs: Clear to auscultation, Normal air movement, No rhonchi, No wheeze Cardiovascular: Regular rate, Regular Rhythm, Normal S1, Normal S2 Abdomen: Bowel Sounds Present, Soft Extremities: No clubbing, No cyanosis, Edema - Trace edema of lower extremities Musculoskeletal: No Tenderness to Palpation of Joints or Extremities Lymphatic: No Cervical, Supraclavicular, or Inguinal Adenopathy Neurological: Cranial nerves II-XII grossly intact, Neuro grossly intact Psych/Mental Status: Normal Affect Vital Signs Temp Pulse Resp BP Pulse Ox 98.1 F 72 20 H 145/69 H 98 08/10/18 08:19 08/10/18 11:15 08/10/18 08:19 08/10/18 08:19 08/10/18 08:19 Oxygen Flow Rate (L/min) 3 Oxygen Delivery Method Nasal Cannula Weight: 90.5 kg Body Mass Index (BMI) 32.2 Finger Stick Blood Glucose 118 Intake and Output for Last 24 Hours 08/08/18 08/09/18 08/10/18 23:59 23:59 23:59 Intake Total 1200 / 1200 900 / 900 Output Total 100 / 100 Balance 1200 / 1200 800 / 800 Laboratory Tests Past 24 Hrs 08/09/18 08/09/18 08/09/18 14:05 14:05 14:05 WBC 4.9 RBC 3.06 L Hgb 9.4 L Hct 32.0 L MCV 104.6 H MCH 30.7 MCHC 29.4 L RDW 17.9 H RDW Differential 67.2 H Plt Count 125 L MPV 9.3 Immature Gran % (Auto) 0.400 Neut % (Auto) 77.7 H Lymph % (Auto) 17.0 L [place] % (Auto) 3.9 Eos % (Auto) 0.8 Baso % (Auto) 0.2 Absolute Neuts (auto) 3.8 Absolute Lymphs (auto) 0.83 Total Counted Not Reportable Differential Comment COMMENT Sodium 139 Potassium 3.7 Chloride 99 Carbon Dioxide 30.0 Anion Gap 10 BUN 35 H Creatinine 5.91 H Estim Creat Clear Calc 11.37 Est GFR (MDRD) Af Amer 10 L Est GFR (MDRD) Non-Af 8 L BUN/Creatinine Ratio 5.9 L Glucose 258 H Lactic Acid 2.7 H Calcium 8.2 L Urine Color Urine Clarity Urine pH Ur Specific [place] Urine Protein Urine Glucose (UA) Urine Ketones Urine Occult Blood Urine Nitrite Urine Bilirubin Urine Urobilinogen Ur Leukocyte Esterase Urine RBC Urine WBC Ur Squamous Epith Cells Amorphous Sediment Urine Bacteria Hyaline Casts Urine Mucus 08/09/18 08/09/18 08/10/18 18:50 22:05 05:14 WBC 5.4 RBC 2.95 L Hgb 9.2 L Hct 31.7 L MCV 107.5 H MCH 31.2 MCHC 29.0 L RDW 17.4 H RDW Differential 65.2 H Plt Count 138 L MPV 9.2 Immature Gran % (Auto) Neut % (Auto) Lymph % (Auto) [place] % (Auto) Eos % (Auto) Baso % (Auto) Absolute Neuts (auto) Absolute Lymphs (auto) Total Counted Differential Comment SCAN Sodium Potassium Chloride Carbon Dioxide Anion Gap BUN Creatinine Estim Creat Clear Calc Est GFR (MDRD) Af Amer Est GFR (MDRD) Non-Af BUN/Creatinine Ratio Glucose Lactic Acid 1.7 Calcium Urine Color Yellow Urine Clarity Clear Urine pH 7.0 Ur Specific [place] 1.010 Urine Protein 500 H Urine Glucose (UA) 250 H Urine Ketones Negative Urine Occult Blood 25 H Urine Nitrite Negative Urine Bilirubin Negative Urine Urobilinogen Normal Ur Leukocyte Esterase 100 H Urine RBC 0-5 SEEN Urine WBC 25-50 SEEN Ur Squamous Epith Cells 0-5 SEEN Amorphous Sediment 1+ PHOS Urine Bacteria 0 SEEN Hyaline Casts 0-5 SEEN Urine Mucus 0 SEEN 08/10/18 05:14 WBC RBC Hgb Hct MCV MCH MCHC RDW RDW Differential Plt Count MPV Immature Gran % (Auto) Neut % (Auto) Lymph % (Auto) [place] % (Auto) Eos % (Auto) Baso % (Auto) Absolute Neuts (auto) Absolute Lymphs (auto) Total Counted Differential Comment Sodium 138 Potassium 4.8 Chloride 99 Carbon Dioxide 28.0 Anion Gap 11 BUN 46 H Creatinine 7.04 H Estim Creat Clear Calc 9.55 Est GFR (MDRD) Af Amer 8 L Est GFR (MDRD) Non-Af 7 L BUN/Creatinine Ratio 6.5 L Glucose 195 H Lactic Acid Calcium 8.3 L Urine Color Urine Clarity Urine pH Ur Specific [place] Urine Protein Urine Glucose (UA) Urine Ketones Urine Occult Blood Urine Nitrite Urine Bilirubin Urine Urobilinogen Ur Leukocyte Esterase Urine RBC Urine WBC Ur Squamous Epith Cells Amorphous Sediment Urine Bacteria Hyaline Casts Urine Mucus POC Glucose 08/10/18 08/09/18 08/09/18 08:25 21:36 17:03 POC Glucose 158 H 122 H 174 H Assessment/Plan All Active Problems (Last Reviewed 07/27/18 @ 11:56 by Pricila Olson) Cellulitis (Acute) Nausea & vomiting (Resolved) Migraine (Resolved) Metabolic encephalopathy (Resolved) Chest pain (Acute) Tooth abscess (Resolved) Intractable nausea and vomiting (Resolved) Pneumonia (Resolved) Pulmonary edema (Resolved) Hyperkalemia (Resolved) Atypical chest pain (Resolved) Acute hypoxic respiratory failure (Resolved) Pulmonary edema (Resolved) Clostridium difficile enterocolitis (Resolved) Necrotizing myositis (Resolved) Dysmenorrhea (Resolved) Hx of necrotizing fascIItis (Resolved) Iron deficiency anemia due to chronic blood loss (Resolved) Systolic congestive heart failure (Resolved) 1-end-stage renal disease patient. On TTS hemodialysis schedule. Patient goes to . Last hemodialysis session was August 09. I will arrange for hemodialysis tomorrow. Hemodialysis access is left upper extremity AV fistula. 2-anemia: Continue ESTUARDO as per the chronic order. 3-BMD. Continue calcium acetate with meals. Check phosphorus in a.m.. 4-hypertension. Blood pressure is well controlled. I will make no changes in blood pressure medications today. Ultrafiltration 2 EDW with hemodialysis. 5-cellulitis of the lower abdominal wall. Antibiotics as per the primary service. Thank you for the consult. Renal team will continue to follow.
[2018-08-10 11:51] LABS: Bedside Glucose 126 mg/dL (70-110)
--- NOTE | 2018-08-10 11:54 | CON.PCM_ITS ---
Problem List (1) ESRD (end stage renal disease) on dialysis Status: Chronic Consultation - Renal PCP/ Referring MD: Requesting physician: [] Primary care physician: Christopher Foy MD - History of Present Illness History of Present Illness: The patient is a 42 year old F past medical history of end-stage renal disease on TTS schedule . Last hemodialysis was yesterday . Patient presented to the hospital this time with lower abdominal pain redness and pain . Patient was admitted for cellulitis treatment . Patient has left upper extremity AV fistula which is functioning well . Patient was started on vancomycin and Unasyn to treat the cellulitis . Patient feels slightly better . No shortness of breath no nausea no vomiting today .. Review of system : 12 system review is negative except for lower abdominal pain and redness which are improving [] - Allergies Allergies: Allergies latex Allergy (Verified 08/09/18 13:51) Rash prochlorperazine [From Compazine] Allergy (Verified 08/09/18 13:51) Unknown levofloxacin [From Levaquin] Adverse Reaction (Verified 08/09/18 13:51) PT CAN'T REMEMBER PT CAN'T REMEMBER metoclopramide HCl [From Reglan] Adverse Reaction (Verified 08/09/18 13:51) Nausea NSAIDS (Non-Steroidal Anti-Inflamma Adverse Reaction (Verified 08/09/18 13:51) kidney function oxycodone HCl [From Percocet] Adverse Reaction (Verified 08/09/18 13:51) HALLUCINATIONS - Current Medications Current Medications: Current Medications Acetaminophen (Tylenol) 650 mg PO Q6H PRN PRN PRN Reason: PAIN Albuterol Sulfate (Ventolin Aerosols) 2.5 mg INHALATION Q2H PRN PRN PRN Reason: dyspnea, wheezing Aspirin (Aspirin, Baby) 81 mg PO DAILY@0800 [facility] Last Admin: 08/10/18 08:31 Dose: 81 mg Atorvastatin Calcium (Lipitor) 20 mg PO QHS [facility] Last Admin: 08/09/18 21:33 Dose: 20 mg Calcium Acetate (Phoslo Gel Cap) 1,334 mg PO TIDCM [facility] Last Admin: 08/10/18 08:31 Dose: 1,334 mg Carvedilol (Coreg) 25 mg PO BID [facility] Last Admin: 08/10/18 08:37 Dose: 25 mg Clopidogrel Bisulfate (Plavix) 75 mg PO DAILY [facility] Last Admin: 08/10/18 08:30 Dose: 75 mg Dextrose (D50w Syringe) 0 gm IV X1 PRN; Protocol PRN Reason: Hypoglycemia Ergocalciferol (Vitamin D) 50,000 unit PO MO [facility] Fluoxetine HCl (Prozac) 40 mg PO DAILY [facility] Last Admin: 08/10/18 08:30 Dose: 40 mg Glucagon () 1 mg IM .X1 PRN PRN Reason: Hypoglycemia Heparin Sodium (Porcine) (Heparin Na) 5,000 unit SC Q8 [facility] Hydroxyzine Pamoate (Vistaril Pamoate Capsule) 50 mg PO TuThSa@1000 [facility] Ampicillin Sodium/Sulbactam Sodium 1,500 mg/ Sodium Chloride 50 mls @ 100 mls/hr IV DAILY [facility] Last Admin: 08/10/18 10:41 Dose: 100 mls/hr Vancomycin IV Pharmacy to Dose (1 ea/ Sodium Chloride) 500 mls @ 250 mls/hr IV X1 PRN; Protocol PRN Reason: Rx to Dose Vancomycin HCl 750 mg/ Sodium (Chloride) 265 mls @ 250 mls/hr IV X1 ONE Stop: 08/11/18 11:03 Insulin Glargine (Lantus (Bkc)) 4 units SC QHS [facility] Last Admin: 08/09/18 21:40 Dose: 4 u Insulin Human Lispro (Humalog Kwikpen (Bkc)) 10 unit SC 0800,1200,1700 [facility] Last Admin: 08/10/18 08:33 Dose: 10 u Insulin Human Lispro (Humalog Kwikpen (Bkc)) 0 unit SQ ACHS [facility]; Protocol Last Admin: 08/10/18 08:33 Dose: 1 units Isosorbide Mononitrate (Imdur) 60 mg PO DAILY [facility] Last Admin: 08/10/18 08:29 Dose: 60 mg Lisinopril (Zestril) 20 mg PO DAILY [facility] Last Admin: 08/10/18 08:31 Dose: 20 mg Loperamide HCl (Imodium) 2 mg PO TID PRN PRN Reason: STOOLING Morphine Sulfate () 1 mg IV Q4H PRN PRN PRN Reason: SEVERE PAIN (6-10/10) Last Admin: 08/10/18 06:07 Dose: 1 mg Multivit/Ca Carb/B Cmplx/FA/Prenat (Nephrocaps, Renaphro) 1 capsule PO DAILY [facility] Last Admin: 08/10/18 08:36 Dose: 1 capsule Nystatin (Mycostatin Powder) 1 applic TOPICAL BID [facility]; Protocol Last Admin: 08/10/18 10:37 Dose: 1 applic Pantoprazole Sodium (Protonix) 20 mg PO BID [facility] Last Admin: 08/10/18 08:32 Dose: 20 mg Promethazine HCl (Phenergan Tablet) 25 mg PO Q6H PRN PRN PRN Reason: NAUSEA Last Admin: 08/09/18 23:59 Dose: 25 mg Sodium Bicarbonate (Sodium Bicarbonate) 650 mg PO 4X/DAY [facility] Last Admin: 08/10/18 08:30 Dose: 650 mg Sodium Chloride () 5 - 15 ml IV UD PRN PRN Reason: SALINE FLUSH Last Admin: 08/10/18 10:43 Dose: 10 ml - Past Medical History Past Medical History (Chronic Problems): Chronic Problems (Last Reviewed 07/27/18 @ 11:56 by Pricila Olson) CAD (coronary artery disease) (Chronic) Stented coronary artery (Chronic 02/26/18) FFR of LAD 0.82; VIKY of mid LAD with 2.5 X 24 mm Promus Synergy, OM <50% stenosis per Dr. Magdaleno @ [facility] Atherosclerotic heart disease of [place] coronary artery without angina pectoris (Chronic) S/P PTCA/VIKY to mid LAD in February 2018 OM #1 noted to be 50%; ESRD (end stage renal disease) on dialysis (Chronic) Decubitus ulcer, stage III (Chronic) Anemia, chronic disease (Chronic) Pilonidal cyst with abscess (Chronic) GABRIEL (obstructive sleep apnea) (Chronic) Depression (Chronic) Anxiety (Chronic) HTN (hypertension) (Chronic) Nonischemic cardiomyopathy (Chronic) EF 45% per echo 07/01/2018 S/P repair of PDA (patent ductus arteriosus) (Chronic) At young age Diabetes mellitus type 1 (Chronic) Hyperlipidemia (Chronic) Obesity (BMI 30.0-34.9) (Chronic) Gastroparesis (Chronic) - Past Surgical History Surgical History: appendectomy, hysterectomy - and BSO, - - c-sections, L breast I+D for abscess, fistula placement LUE, L ankle surgery, appendectomy, PDA repair. Excision pilonidal cyst ulcer about 4 years ago. Colostomy placed due to rectal abscess/wound, patent ductus repair, drug-eluting stent placement left anterior descending coronary artery February 2018. - Social History Smoking Status: Current some day smoker Alcohol: None Drugs: None - Family History Maternal History Items: Cancer, COPD, Diabetes, Hypertension, Renal Disease, Stroke Paternal History Items: Diabetes Sibling History Items: Cancer, Diabetes Patient Problems: Active and Suspected Problems (Last Reviewed 07/27/18 @ 11:56 by Pricila Olson) Cellulitis (Acute) - Physical Exam General: Alert, Oriented x3 HEENT: Atraumatic, PERRLA Oral: Moist Mucosa Neck: Supple, No JVD Lungs: Clear to auscultation, Normal air movement, No rhonchi, No wheeze Cardiovascular: Regular rate, Regular Rhythm, Normal S1, Normal S2 Abdomen: Bowel Sounds Present, Soft Extremities: No clubbing, No cyanosis, Edema - Trace edema of lower extremities Musculoskeletal: No Tenderness to Palpation of Joints or Extremities Lymphatic: No Cervical, Supraclavicular, or Inguinal Adenopathy Neurological: Cranial nerves II-XII grossly intact, Neuro grossly intact Psych/Mental Status: Normal Affect Vital Signs Temp Pulse Resp BP Pulse Ox 98.1 F 72 20 H 145/69 H 98 08/10/18 08:19 08/10/18 11:15 08/10/18 08:19 08/10/18 08:19 08/10/18 08:19 Oxygen Flow Rate (L/min) 3 Oxygen Delivery Method Nasal Cannula Weight: 90.5 kg Body Mass Index (BMI) 32.2 Finger Stick Blood Glucose 118 Intake and Output for Last 24 Hours 08/08/18 08/09/18 08/10/18 23:59 23:59 23:59 Intake Total 1200 / 1200 900 / 900 Output Total 100 / 100 Balance 1200 / 1200 800 / 800 Laboratory Tests Past 24 Hrs 08/09/18 08/09/18 08/09/18 14:05 14:05 14:05 WBC 4.9 RBC 3.06 L Hgb 9.4 L Hct 32.0 L MCV 104.6 H MCH 30.7 MCHC 29.4 L RDW 17.9 H RDW Differential 67.2 H Plt Count 125 L MPV 9.3 Immature Gran % (Auto) 0.400 Neut % (Auto) 77.7 H Lymph % (Auto) 17.0 L [place] % (Auto) 3.9 Eos % (Auto) 0.8 Baso % (Auto) 0.2 Absolute Neuts (auto) 3.8 Absolute Lymphs (auto) 0.83 Total Counted Not Reportable Differential Comment COMMENT Sodium 139 Potassium 3.7 Chloride 99 Carbon Dioxide 30.0 Anion Gap 10 BUN 35 H Creatinine 5.91 H Estim Creat Clear Calc 11.37 Est GFR (MDRD) Af Amer 10 L Est GFR (MDRD) Non-Af 8 L BUN/Creatinine Ratio 5.9 L Glucose 258 H Lactic Acid 2.7 H Calcium 8.2 L Urine Color Urine Clarity Urine pH Ur Specific [place] Urine Protein Urine Glucose (UA) Urine Ketones Urine Occult Blood Urine Nitrite Urine Bilirubin Urine Urobilinogen Ur Leukocyte Esterase Urine RBC Urine WBC Ur Squamous Epith Cells Amorphous Sediment Urine Bacteria Hyaline Casts Urine Mucus 08/09/18 08/09/18 08/10/18 18:50 22:05 05:14 WBC 5.4 RBC 2.95 L Hgb 9.2 L Hct 31.7 L MCV 107.5 H MCH 31.2 MCHC 29.0 L RDW 17.4 H RDW Differential 65.2 H Plt Count 138 L MPV 9.2 Immature Gran % (Auto) Neut % (Auto) Lymph % (Auto) [place] % (Auto) Eos % (Auto) Baso % (Auto) Absolute Neuts (auto) Absolute Lymphs (auto) Total Counted Differential Comment SCAN Sodium Potassium Chloride Carbon Dioxide Anion Gap BUN Creatinine Estim Creat Clear Calc Est GFR (MDRD) Af Amer Est GFR (MDRD) Non-Af BUN/Creatinine Ratio Glucose Lactic Acid 1.7 Calcium Urine Color Yellow Urine Clarity Clear Urine pH 7.0 Ur Specific [place] 1.010 Urine Protein 500 H Urine Glucose (UA) 250 H Urine Ketones Negative Urine Occult Blood 25 H Urine Nitrite Negative Urine Bilirubin Negative Urine Urobilinogen Normal Ur Leukocyte Esterase 100 H Urine RBC 0-5 SEEN Urine WBC 25-50 SEEN Ur Squamous Epith Cells 0-5 SEEN Amorphous Sediment 1+ PHOS Urine Bacteria 0 SEEN Hyaline Casts 0-5 SEEN Urine Mucus 0 SEEN 08/10/18 05:14 WBC RBC Hgb Hct MCV MCH MCHC RDW RDW Differential Plt Count MPV Immature Gran % (Auto) Neut % (Auto) Lymph % (Auto) [place] % (Auto) Eos % (Auto) Baso % (Auto) Absolute Neuts (auto) Absolute Lymphs (auto) Total Counted Differential Comment Sodium 138 Potassium 4.8 Chloride 99 Carbon Dioxide 28.0 Anion Gap 11 BUN 46 H Creatinine 7.04 H Estim Creat Clear Calc 9.55 Est GFR (MDRD) Af Amer 8 L Est GFR (MDRD) Non-Af 7 L BUN/Creatinine Ratio 6.5 L Glucose 195 H Lactic Acid Calcium 8.3 L Urine Color Urine Clarity Urine pH Ur Specific [place] Urine Protein Urine Glucose (UA) Urine Ketones Urine Occult Blood Urine Nitrite Urine Bilirubin Urine Urobilinogen Ur Leukocyte Esterase Urine RBC Urine WBC Ur Squamous Epith Cells Amorphous Sediment Urine Bacteria Hyaline Casts Urine Mucus POC Glucose 08/10/18 08/09/18 08/09/18 08:25 21:36 17:03 POC Glucose 158 H 122 H 174 H Assessment/Plan All Active Problems (Last Reviewed 07/27/18 @ 11:56 by Pricila Olson) Cellulitis (Acute) Nausea & vomiting (Resolved) Migraine (Resolved) Metabolic encephalopathy (Resolved) Chest pain (Acute) Tooth abscess (Resolved) Intractable nausea and vomiting (Resolved) Pneumonia (Resolved) Pulmonary edema (Resolved) Hyperkalemia (Resolved) Atypical chest pain (Resolved) Acute hypoxic respiratory failure (Resolved) Pulmonary edema (Resolved) Clostridium difficile enterocolitis (Resolved) Necrotizing myositis (Resolved) Dysmenorrhea (Resolved) Hx of necrotizing fascIItis (Resolved) Iron deficiency anemia due to chronic blood loss (Resolved) Systolic congestive heart failure (Resolved) 1-end-stage renal disease patient. On TTS hemodialysis schedule. Patient goes to [facility]. Last hemodialysis session was August 09. I will arrange for hemodialysis tomorrow. Hemodialysis access is left upper extremity AV fistula. 2-anemia: Continue ESTUARDO as per the chronic order. 3-BMD. Continue calcium acetate with meals. Check phosphorus in a.m.. 4-hypertension. Blood pressure is well controlled. I will make no changes in blood pressure medications today. Ultrafiltration 2 EDW with hemodialysis. 5-cellulitis of the lower abdominal wall. Antibiotics as per the primary service. Thank you for the consult. Renal team will continue to follow.
--- NOTE | 2018-08-10 13:47 | CON.PCM_ITS ---
Problem List (1) Cellulitis Status: Acute Qualifiers: Site of cellulitis: other site Qualified Code(s): L03.818 - Cellulitis of other sites Reason for Consult: cellulitis Consulted by: Dr. Pressley History of Present Illness: The patient is a 42 year old F with ESRD and prior colostomy who presented with 3 days of fever, not feeling well, and redness around colostomy. No drainage, no blood in stool, no recent abx. No cough or SOB, no abd pain. Admitted here on vanc/unasyn, feeling better, redness improved, no further fever. Full ROS performed and neg except as noted above. - Medical History Past Medical History (Chronic Problems): Chronic Problems (Last Reviewed 07/27/18 @ 11:56 by Pricila Olson) CAD (coronary artery disease) (Chronic) Stented coronary artery (Chronic 02/26/18) FFR of LAD 0.82; VIKY of mid LAD with 2.5 X 24 mm Promus Synergy, OM <50% stenosis per Dr. Magdaleno @ [facility] Atherosclerotic heart disease of [place] coronary artery without angina pectoris (Chronic) S/P PTCA/VIKY to mid LAD in February 2018 OM #1 noted to be 50%; ESRD (end stage renal disease) on dialysis (Chronic) Decubitus ulcer, stage III (Chronic) Anemia, chronic disease (Chronic) Pilonidal cyst with abscess (Chronic) GABRIEL (obstructive sleep apnea) (Chronic) Depression (Chronic) Anxiety (Chronic) HTN (hypertension) (Chronic) Nonischemic cardiomyopathy (Chronic) EF 45% per echo 07/01/2018 S/P repair of PDA (patent ductus arteriosus) (Chronic) At young age Diabetes mellitus type 1 (Chronic) Hyperlipidemia (Chronic) Obesity (BMI 30.0-34.9) (Chronic) Gastroparesis (Chronic) Allergies/Adverse Reactions: Allergies latex Allergy (Verified 08/09/18 13:51) Rash prochlorperazine [From Compazine] Allergy (Verified 08/09/18 13:51) Unknown levofloxacin [From Levaquin] Adverse Reaction (Verified 08/09/18 13:51) PT CAN'T REMEMBER PT CAN'T REMEMBER metoclopramide HCl [From Reglan] Adverse Reaction (Verified 08/09/18 13:51) Nausea NSAIDS (Non-Steroidal Anti-Inflamma Adverse Reaction (Verified 08/09/18 13:51) kidney function oxycodone HCl [From Percocet] Adverse Reaction (Verified 08/09/18 13:51) HALLUCINATIONS Home Medications: Ambulatory Orders Medication Instructions Recorded Aspirin [Aspirin, Baby] 81 mg PO DAILY@0800 01/26/16 Calcium Acetate [Phoslo Gel Cap] 1,334 mg PO TIDCM 01/26/16 Ergocalciferol [Vitamin D] 50,000 unit PO MO 01/26/16 Insulin Aspart [Novolog Flexpen] 10 units SC TIDCM 01/26/16 Insulin Glargine,Hum.rec.anlog 4 unit SQ QHS 01/09/17 [Lantus] proMETHazine tablet [Phenergan 25 mg PO Q6H PRN PRN #10 tab 03/06/17 tablet] Lisinopril 20 mg PO DAILY 03/29/17 Sodium Bicarbonate 650 mg PO 4X/DAY 03/29/17 Atorvastatin Calcium [Lipitor] 20 mg PO QHS 05/26/18 Carvedilol [Coreg] 25 mg PO BID 05/26/18 Loperamide HCl [Imodium A-D] 2 mg PO TID PRN 05/26/18 Pantoprazole Sodium [Protonix] 20 mg PO BID 05/26/18 Clopidogrel Bisulfate [Plavix] 75 mg PO DAILY 07/01/18 Albuterol Aerosols [Ventolin 2.5 mg INHALATION Q2H PRN PRN #30 07/03/18 Aerosols] vial.neb. Lidocaine/Prilocaine HCl [Emla 1 applicatio TOPICAL X1 #1 tube 07/03/18 Cream W/Tegaderm] ALPRAZolam [Xanax] 0.5 mg PO PRN PRN 08/09/18 Acetaminophen 650 mg PO PRN PRN 08/09/18 B Complex W-C No.20/Folic Acid 1 mg PO DAILY 08/09/18 [Nephrocaps Softgel] Fluoxetine HCl 40 mg PO DAILY 08/09/18 Hydroxyzine HCl 50 mg PO TUTHSA 08/09/18 Isosorbide Mononitrate [Imdur] 60 mg PO DAILY 08/09/18 - Social History SMOKING STATUS:: Former smoker Vital Signs Temp Pulse Resp BP Pulse Ox 98.1 F 72 20 H 145/69 H 97 08/10/18 08:19 08/10/18 11:15 08/10/18 08:19 08/10/18 08:19 08/10/18 12:15 Oxygen Flow Rate (L/min) 3 Oxygen Delivery Method Nasal Cannula Weight: 90.67 kg Body Mass Index (BMI) 32.2 Finger Stick Blood Glucose 118 Laboratory Tests Past 24 Hrs 08/09/18 08/09/18 08/09/18 14:05 14:05 14:05 WBC 4.9 RBC 3.06 L Hgb 9.4 L Hct 32.0 L MCV 104.6 H MCH 30.7 MCHC 29.4 L RDW 17.9 H RDW Differential 67.2 H Plt Count 125 L MPV 9.3 Immature Gran % (Auto) 0.400 Neut % (Auto) 77.7 H Lymph % (Auto) 17.0 L [place] % (Auto) 3.9 Eos % (Auto) 0.8 Baso % (Auto) 0.2 Absolute Neuts (auto) 3.8 Absolute Lymphs (auto) 0.83 Total Counted Not Reportable Differential Comment COMMENT Sodium 139 Potassium 3.7 Chloride 99 Carbon Dioxide 30.0 Anion Gap 10 BUN 35 H Creatinine 5.91 H Estim Creat Clear Calc 11.37 Est GFR (MDRD) Af Amer 10 L Est GFR (MDRD) Non-Af 8 L BUN/Creatinine Ratio 5.9 L Glucose 258 H Lactic Acid 2.7 H Calcium 8.2 L Urine Color Urine Clarity Urine pH Ur Specific [place] Urine Protein Urine Glucose (UA) Urine Ketones Urine Occult Blood Urine Nitrite Urine Bilirubin Urine Urobilinogen Ur Leukocyte Esterase Urine RBC Urine WBC Ur Squamous Epith Cells Amorphous Sediment Urine Bacteria Hyaline Casts Urine Mucus 08/09/18 08/09/18 08/10/18 18:50 22:05 05:14 WBC 5.4 RBC 2.95 L Hgb 9.2 L Hct 31.7 L MCV 107.5 H MCH 31.2 MCHC 29.0 L RDW 17.4 H RDW Differential 65.2 H Plt Count 138 L MPV 9.2 Immature Gran % (Auto) Neut % (Auto) Lymph % (Auto) [place] % (Auto) Eos % (Auto) Baso % (Auto) Absolute Neuts (auto) Absolute Lymphs (auto) Total Counted Differential Comment SCAN Sodium Potassium Chloride Carbon Dioxide Anion Gap BUN Creatinine Estim Creat Clear Calc Est GFR (MDRD) Af Amer Est GFR (MDRD) Non-Af BUN/Creatinine Ratio Glucose Lactic Acid 1.7 Calcium Urine Color Yellow Urine Clarity Clear Urine pH 7.0 Ur Specific [place] 1.010 Urine Protein 500 H Urine Glucose (UA) 250 H Urine Ketones Negative Urine Occult Blood 25 H Urine Nitrite Negative Urine Bilirubin Negative Urine Urobilinogen Normal Ur Leukocyte Esterase 100 H Urine RBC 0-5 SEEN Urine WBC 25-50 SEEN Ur Squamous Epith Cells 0-5 SEEN Amorphous Sediment 1+ PHOS Urine Bacteria 0 SEEN Hyaline Casts 0-5 SEEN Urine Mucus 0 SEEN 08/10/18 05:14 WBC RBC Hgb Hct MCV MCH MCHC RDW RDW Differential Plt Count MPV Immature Gran % (Auto) Neut % (Auto) Lymph % (Auto) [place] % (Auto) Eos % (Auto) Baso % (Auto) Absolute Neuts (auto) Absolute Lymphs (auto) Total Counted Differential Comment Sodium 138 Potassium 4.8 Chloride 99 Carbon Dioxide 28.0 Anion Gap 11 BUN 46 H Creatinine 7.04 H Estim Creat Clear Calc 9.55 Est GFR (MDRD) Af Amer 8 L Est GFR (MDRD) Non-Af 7 L BUN/Creatinine Ratio 6.5 L Glucose 195 H Lactic Acid Calcium 8.3 L Urine Color Urine Clarity Urine pH Ur Specific [place] Urine Protein Urine Glucose (UA) Urine Ketones Urine Occult Blood Urine Nitrite Urine Bilirubin Urine Urobilinogen Ur Leukocyte Esterase Urine RBC Urine WBC Ur Squamous Epith Cells Amorphous Sediment Urine Bacteria Hyaline Casts Urine Mucus - Other Studies Radiology: [] reviewed Other Studies: [] Route of nutrition/ use of supplements: [] Nutritional Intake: [] IV Site: [] Meyer Catheter: [] - Physical Exam General: Alert, Oriented x3, Cooperative, No apparent distress HEENT: Atraumatic, PERRLA, EOMI Neck: Supple, No Nodes Lungs: Clear to auscultation, Normal air movement Cardiovascular: Regular rate, Regular Rhythm, No murmurs Abdomen: Soft, Non Tender, Non-Distended, - - ostomy in place with no surrounding redness Extremities: No edema Skin: No rashes IV Site: Peripheral, without redness Musculoskeletal: No Tenderness to Palpation of Joints or Extremities Neurological: Cranial nerves II-XII grossly intact - Assessment/Plan Antibiotics: [] Assessment/Plan: [] Active and Suspected Problems (Last Reviewed 07/27/18 @ 11:56 by Pricila Olson) Cellulitis (Acute) No fever here, normal wbc. Lactate was elevated. Prior cxs with VRE. Improving on vanc/unasyn. Plan will be for her to go home on 5-7 more days of doxy 100mg bid and augmentin 500mg qday. Will follow, thank you.
--- NOTE | 2018-08-10 14:17 | CASEMGMT ---
MALLORY CM Assessment Presentation: cellulitis of anterior wall of abdomen. Pt has history of necrotizing faciitis in past. PCP: Dr Foy Specialists: [place]: Cardiology Dr Martinez: Nephrology. Dialysis: [facility] Dialysis , , Mon. Chair time: 11:20. Called to center to notify of pt's admission. Fidencio states if pt is dc'd tomorrow prior to chair time, they should be able to fit her in, otherwise will expect her on Monday. Preferred Pharmacy: [facility] Insurance: [facility] A [facility] B, Medicaid Prescription Benefit: Medicaid LNOK: Mother Living Arrangements: States she still lives in apartment with her 9 year child, Mark her sign other and her mother. (Father recently and mother moved in with them. 1 step into apartment. Pt states she is independent in all self care. Transportation: drives DME: Pt states has oxygen set up through [employer], night time only but may need continuos on dc. Call to [facility] [employer] to verify script which is for 2L continuous. Has a concentrator. Colostomy supplies through [employer]. HHC/SNF: Has used [facility] HHC, LTAC and SNF in the past. DC Plan: Home on discharge, no needs identified. Colin JOVEL RN ACM
[2018-08-10] MEDS: oxyCODONE 5 MG Tablet PO ×2 (14:27→20:34)
[2018-08-10] MEDS: Heparin Injection (Vial) 5,000 UNIT/ML VIAL 5000 UNIT SC ×2 (14:28→21:33)
[2018-08-10 16:06] LABS: Bedside Glucose 119 mg/dL (70-110)
[2018-08-10 17:20] LABS: Bedside Glucose 101 mg/dL (70-110)
[2018-08-10] MEDS: proMETHazine 25 MG Tablet PO (18:37)
[2018-08-10 19:51] LABS: Bedside Glucose 134 mg/dL (70-110)
[2018-08-10] MEDS: Atorvastatin Calcium 20 MG Tablet PO (21:32)
[2018-08-11 00:33] VITALS: PULSE 128
[2018-08-11] MEDS: Acetaminophen 325 MG Tablet 650 MG PO (01:53)
[2018-08-11 02:03] VITALS: BP 114/63; PULSE 81; RESP 16; TEMP 36.7; O2SAT 97
[2018-08-11 03:57] VITALS: PULSE 72
[2018-08-11] MEDS: Heparin Injection (Vial) 5,000 UNIT/ML VIAL 5000 UNIT SC (06:30)
[2018-08-11 07:20] VITALS: O2SAT 96
[2018-08-11 07:51] LABS: Bedside Glucose 194 mg/dL (70-110)
[2018-08-11] MEDS: Insulin Lispro 100 UNIT/ML INSULN.PEN SQ (08:14)
[2018-08-11] MEDS: Insulin Lispro 100 UNIT/ML INSULN.PEN 10 UNIT SC (08:14)
[2018-08-11 08:45] VITALS: PULSE 75
--- NOTE | 2018-08-11 09:56 | DCINST_ITS ---
- Discharge Diagnoses Current Active Problems: Current Active and Chronic Problems (Last Reviewed 07/27/18 @ 11:56 by Pricila Olson) Cellulitis (Acute) Reason(s) for Visit for Discharge Instructions: Abdominal wal pain and redness You will use the following diet at home:: Calorie/Carbohydrate Controlled (specify 1200, 1400, etc), Renal (restricted protein/sodium) Your food should be the consistency of: Regular Your liquids should be the consistency of: Regular/Thin Discharge Activity: Return to Normal Activity Allergies/Adverse Reactions: Allergies latex Allergy (Verified 08/09/18 13:51) Rash prochlorperazine [From Compazine] Allergy (Verified 08/09/18 13:51) Unknown levofloxacin [From Levaquin] Adverse Reaction (Verified 08/09/18 13:51) PT CAN'T REMEMBER PT CAN'T REMEMBER metoclopramide HCl [From Reglan] Adverse Reaction (Verified 08/09/18 13:51) Nausea NSAIDS (Non-Steroidal Anti-Inflamma Adverse Reaction (Verified 08/09/18 13:51) kidney function oxycodone HCl [From Percocet] Adverse Reaction (Verified 08/09/18 13:51) HALLUCINATIONS Medications to take at Discharge Aspirin [Aspirin, Baby] 81 mg PO DAILY@0800 01/26/16 Calcium Acetate [Phoslo Gel Cap] 1,334 mg PO TIDCM 01/26/16 Ergocalciferol [Vitamin D] 50,000 unit PO MO 01/26/16 Insulin Aspart [Novolog Flexpen] 10 units SC TIDCM 01/26/16 Insulin Glargine,Hum.rec.anlog [Lantus] 4 unit SQ QHS 01/09/17 proMETHazine tablet [Phenergan tablet] 25 mg PO Q6H PRN PRN #10 tab 03/06/17 Lisinopril 20 mg PO DAILY 03/29/17 Sodium Bicarbonate 650 mg PO 4X/DAY 03/29/17 Atorvastatin Calcium [Lipitor] 20 mg PO QHS 05/26/18 Carvedilol [Coreg] 25 mg PO BID 05/26/18 Loperamide HCl [Imodium A-D] 2 mg PO TID PRN 05/26/18 Pantoprazole Sodium [Protonix] 20 mg PO BID 05/26/18 Clopidogrel Bisulfate [Plavix] 75 mg PO DAILY 07/01/18 Albuterol Aerosols [Ventolin Aerosols] 2.5 mg INHALATION Q2H PRN PRN #30 vial.neb. 07/03/18 Lidocaine/Prilocaine HCl [Emla Cream W/Tegaderm] 1 applicatio TOPICAL X1 #1 tube 07/03/18 ALPRAZolam [Xanax] 0.5 mg PO PRN PRN 08/09/18 Acetaminophen 650 mg PO PRN PRN 08/09/18 B Complex W-C No.20/Folic Acid [Nephrocaps Softgel] 1 mg PO DAILY 08/09/18 Fluoxetine HCl 40 mg PO DAILY 08/09/18 Hydroxyzine HCl 50 mg PO TUTHSA 08/09/18 Isosorbide Mononitrate [Imdur] 60 mg PO DAILY 08/09/18 Acetaminophen [Tylenol Tablet] 650 mg PO Q6H PRN PRN tablet 08/11/18 Amoxicillin/Potassium Clav [Augmentin 500-125 Tablet] 1 each PO DAILY #5 tablet 08/11/18 Doxycycline 100 mg PO BID #10 capsule 08/11/18 Nystatin Powder [Mycostatin Powder] 1 applic TOPICAL BID #1 bottle 08/11/18 The following prescriptions were given: Amoxicillin/Potassium Clav [Augmentin 500-125 Tablet] 1 each PO DAILY #5 tablet Doxycycline 100 mg PO BID #10 capsule Nystatin Powder [Mycostatin Powder] 1 applic TOPICAL BID #1 bottle Primary Care Physician: Christopher Foy MD [Primary Care Provider] - Please follow up with your Primary Care Physician in: within 2 weeks of discharge Test Results: Test results from this visit will be discussed in further detail at your follow- up appointment, if applicable. Please Follow Up With: Chey Martinez MD When: In dialysis as scheduled Proposed Discharge Date: 08/11/18
--- NOTE | 2018-08-11 09:56 | PCM.DC.SUM ---
Discharge Date and Diagnosis - Problem List Patient Problems: Active and Suspected Problems (Last Reviewed 07/27/18 @ 11:56 by Pricila Olson) Cellulitis (Acute) Date of Admission: 08/09/18 Date of Discharge: 08/11/18 - Primary Discharge Diagnosis Active and Suspected Problems (Last Reviewed 07/27/18 @ 11:56 by Pricila Olson) Cellulitis (Acute) Elevated lactic acid Anterior abdominal wall pannus deborah intertrigo - Secondary Discharge Diagnosis Chronic Problems (Last Reviewed 07/27/18 @ 11:56 by Pricila Olson) CAD (coronary artery disease) (Chronic) Stented coronary artery (Chronic 02/26/18) FFR of LAD 0.82; VIKY of mid LAD with 2.5 X 24 mm Promus Synergy, OM <50% stenosis per Dr. Magdaleno @ [facility] Atherosclerotic heart disease of [place] coronary artery without angina pectoris (Chronic) S/P PTCA/VIKY to mid LAD in February 2018 OM #1 noted to be 50%; ESRD (end stage renal disease) on dialysis (Chronic) Decubitus ulcer, stage III (Chronic) Anemia, chronic disease (Chronic) Pilonidal cyst with abscess (Chronic) GABRIEL (obstructive sleep apnea) (Chronic) Depression (Chronic) Anxiety (Chronic) HTN (hypertension) (Chronic) Nonischemic cardiomyopathy (Chronic) EF 45% per echo 07/01/2018 S/P repair of PDA (patent ductus arteriosus) (Chronic) At young age Diabetes mellitus type 1 (Chronic) Hyperlipidemia (Chronic) Obesity (BMI 30.0-34.9) (Chronic) Gastroparesis (Chronic) Hospital Course and Treatment Consultations 08/09/18 16:40 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 1. Acute cellulitis of the anterior abdominal wall, no signs of sepsis, no SIRS criteria, history of necrotizing fasciitis, started on IV Unasyn and vancomycin, ID consulted. Redness and pain resolved after 2 days of Iv antibiotics. She was discharged on doxycycline and Augmentin for 5 more days. 2. Elevated lactic acid, likely related to cellulitis versus dehydration, resolved soon after admission and hydration. 3. Anterior abdominal wall pannus Deborah intertrigo, present on admission, managed on nystatin powder. Patient Problems: Active and Suspected Problems (Last Reviewed 07/27/18 @ 11:56 by Pricila Olson) Cellulitis (Acute) Subjective: The day of discharge, patient was seen and examined. No new complaints. Was seen on dialysis. Denies any fever or chills. Redness of the anterior abdominal wall was gone. Objective: Physical Exam General: Alert, Oriented x3, Cooperative, No apparent distress, - - on 3L oxygen HEENT: Atraumatic, PERRLA, EOMI, Normocephalic Oral: Moist Mucosa Neck: Supple, No JVD, Negative Carotid Bruits Lungs: Clear to auscultation, Normal air movement Cardiovascular: Regular rate, Regular Rhythm, Normal S1, Normal S2, No murmurs Abdomen: Bowel Sounds Present, Soft, No Hepato-splenomegaly, - -Resolving erythema of the anterior abdominal wall. Colostomy site is pink. Colostomy bag has greenish-brown stools. Extremities: No edema Skin: No rashes, No breakdown Musculoskeletal: No Tenderness to Palpation of Joints or Extremities Lymphatic: No Cervical, Supraclavicular, or Inguinal Adenopathy Neurological: Cranial nerves II-XII grossly intact, Neuro grossly intact Psych/Mental Status: Normal Affect, Appropriate - Physical Exam Vital Signs Temp Pulse Resp BP Pulse Ox 98.1 F 72 16 114/63 96 08/11/18 02:03 08/11/18 03:57 08/11/18 02:03 08/11/18 02:03 08/11/18 07:20 Oxygen Flow Rate (L/min) 2 Oxygen Delivery Method Nasal Cannula Weight: 90.67 kg Body Mass Index (BMI) 32.2 Finger Stick Blood Glucose 118 Intake and Output for Last 24 Hours 08/09/18 08/10/18 08/11/18 23:59 23:59 23:59 Intake Total 1200 / 1200 2339 / 2339 750 / 750 Output Total 350 / 350 Balance 1200 / 1200 1988 750 / 750 POC Glucose 08/11/18 08/10/18 08/10/18 07:43 19:45 17:16 POC Glucose 194 H 134 H 101 08/10/18 08/10/18 15:50 11:42 POC Glucose 119 H 126 H Discharge Diet: Carb Control Diet, Renal Diet Discharge Activity: Return to Normal Activity Home Medications: Medications to take at Discharge Aspirin [Aspirin, Baby] 81 mg PO DAILY@0800 01/26/16 Calcium Acetate [Phoslo Gel Cap] 1,334 mg PO TIDCM 01/26/16 Ergocalciferol [Vitamin D] 50,000 unit PO MO 01/26/16 Insulin Aspart [Novolog Flexpen] 10 units SC TIDCM 01/26/16 Insulin Glargine,Hum.rec.anlog [Lantus] 4 unit SQ QHS 01/09/17 proMETHazine tablet [Phenergan tablet] 25 mg PO Q6H PRN PRN #10 tab 03/06/17 Lisinopril 20 mg PO DAILY 03/29/17 Sodium Bicarbonate 650 mg PO 4X/DAY 03/29/17 Atorvastatin Calcium [Lipitor] 20 mg PO QHS 05/26/18 Carvedilol [Coreg] 25 mg PO BID 05/26/18 Loperamide HCl [Imodium A-D] 2 mg PO TID PRN 05/26/18 Pantoprazole Sodium [Protonix] 20 mg PO BID 05/26/18 Clopidogrel Bisulfate [Plavix] 75 mg PO DAILY 07/01/18 Albuterol Aerosols [Ventolin Aerosols] 2.5 mg INHALATION Q2H PRN PRN #30 vial.neb. 07/03/18 Lidocaine/Prilocaine HCl [Emla Cream W/Tegaderm] 1 applicatio TOPICAL X1 #1 tube 07/03/18 ALPRAZolam [Xanax] 0.5 mg PO PRN PRN 08/09/18 Acetaminophen 650 mg PO PRN PRN 08/09/18 B Complex W-C No.20/Folic Acid [Nephrocaps Softgel] 1 mg PO DAILY 08/09/18 Fluoxetine HCl 40 mg PO DAILY 08/09/18 Hydroxyzine HCl 50 mg PO TUTHSA 08/09/18 Isosorbide Mononitrate [Imdur] 60 mg PO DAILY 08/09/18 Acetaminophen [Tylenol Tablet] 650 mg PO Q6H PRN PRN tablet 08/11/18 Amoxicillin/Potassium Clav [Augmentin 500-125 Tablet] 1 each PO DAILY #5 tablet 08/11/18 Doxycycline 100 mg PO BID #10 capsule 08/11/18 Nystatin Powder [Mycostatin Powder] 1 applic TOPICAL BID #1 bottle 08/11/18 Following Prescrptions Were Given to Patient: Amoxicillin/Potassium Clav [Augmentin 500-125 Tablet] 1 each PO DAILY #5 tablet Doxycycline 100 mg PO BID #10 capsule Nystatin Powder [Mycostatin Powder] 1 applic TOPICAL BID #1 bottle Primary Care Physician: Christopher Foy MD [Primary Care Provider] - Please follow up with your Primary Care Physician in: within 2 weeks of discharge Please Follow Up With: Chey Martinez MD When: In dialysis as scheduled Disposition: Home Minutes spent on discharge:: 40 Patient Condition:: Stable Medical Necessity - Tobacco Use Smoking Status: Current some day smoker Tobacco Use: Cigarettes Meaningful Use Info Meaningful Use Diagnoses (Choose all that apply): None applicable Code Visit Inpatient E&M: 95169 Disch Hosp
[2018-08-11 11:25] LABS: Bedside Glucose 105 mg/dL (70-110)
[2018-08-11 12:26] VITALS: BP 119/65; PULSE 77; RESP 16; TEMP 36.6; O2SAT 98
--- NOTE | 2018-08-11 13:06 | DIALYSIS ---
HD X 3.5HRS ON A 2K BATH. UF-1800ML TOLERATED TREATMENT WELL. STASIS AT [facility] DSG AT SITES. NO MEDS GIVEN. VITALS STABLE. REPORT TO RUSSELL TEJADA
--- NOTE | 2018-08-11 14:17 | PN.RENAL_ITS ---
Subjective: Pt was seen during HD session today before discharge. She is tolerating the session well Pt said her abdominal wall pain is better No nausea. No vomiting. No SOB - Physical Exam General: Alert, Oriented x3 HEENT: Atraumatic Oral: Moist Mucosa Neck: Supple Lungs: Clear to auscultation, Normal air movement, No rhonchi, No wheeze Cardiovascular: Regular rate, Regular Rhythm, Normal S1, Normal S2 Abdomen: Bowel Sounds Present, Soft, Non Tender Extremities: No clubbing, No cyanosis Skin: No rashes Lymphatic: No Cervical, Supraclavicular, or Inguinal Adenopathy Neurological: Cranial nerves II-XII grossly intact, Neuro grossly intact Psych/Mental Status: Normal Affect Vital Signs Temp Pulse Resp BP Pulse Ox 97.8 F 77 16 119/65 98 08/11/18 12:26 08/11/18 12:26 08/11/18 12:26 08/11/18 12:26 08/11/18 12:26 Oxygen Flow Rate (L/min) 2 Oxygen Delivery Method Room Air Weight: 90.67 kg Body Mass Index (BMI) 32.2 Finger Stick Blood Glucose 118 Intake and Output for Last 24 Hours 08/09/18 08/10/18 08/11/18 23:59 23:59 23:59 Intake Total 1200 / 1200 2339 / 2339 750 / 750 Output Total 350 / 350 Balance 1200 / 1200 1988 750 / 750 Microbiology Past 72 Hours 08/10/18 17:16 Urine Culture - Preliminary Urine, Clean Catch Culture exhibits no growth. POC Glucose 08/11/18 08/11/18 08/10/18 11:20 07:43 19:45 POC Glucose 105 194 H 134 H 08/10/18 08/10/18 17:16 15:50 POC Glucose 101 119 H Medical Necessity - Tobacco Use Smoking Status: Current some day smoker Tobacco Use: Cigarettes Assessment/Plan All Active Problems (Last Reviewed 07/27/18 @ 11:56 by Pricila Olson) Cellulitis (Acute) Nausea & vomiting (Resolved) Migraine (Resolved) Metabolic encephalopathy (Resolved) Chest pain (Acute) Tooth abscess (Resolved) Intractable nausea and vomiting (Resolved) Pneumonia (Resolved) Pulmonary edema (Resolved) Hyperkalemia (Resolved) Atypical chest pain (Resolved) Acute hypoxic respiratory failure (Resolved) Pulmonary edema (Resolved) Clostridium difficile enterocolitis (Resolved) Necrotizing myositis (Resolved) Dysmenorrhea (Resolved) Hx of necrotizing fascIItis (Resolved) Iron deficiency anemia due to chronic blood loss (Resolved) Systolic congestive heart failure (Resolved) 1-end-stage renal disease patient. On TTS hemodialysis schedule. Patient goes to [facility] dialysis center. HD session today : BQ 400, DQ 600, UF 2L. Hemodialysis access is left upper extremity AV fistula. 2-anemia: Continue ESTUARDO as per the chronic order. 3-BMD. Continue calcium acetate with meals. 4-hypertension. Blood pressure is well controlled. I will make no changes in blood pressure medications today. Ultrafiltration to EDW with hemodialysis. 5-cellulitis of the lower abdominal wall. Antibiotics as per the primary service. Renal team will continue to follow.
--- NOTE | 2018-08-14 15:18 | CASEMGMT ---
MALLORY CM DC Phone Call DC DATE: 08/11/18 DC Disposition: home Attempted call to home phone- not working and no other phone # listed. Colin CURTISN RN ACM
--- OUTSIDE RECORDS SUMMARY | 2018-10-14 10:58 | XMS RPT_ITS ---
:1975 Author Organization [place] Support Name Relationship Address Phone D Unavailable Unavailable Unavailable GLEN REZA Unavailable [address] + [address] [place] [address] WM MEDELLIN Unavailable [address] + [place] [address] D Unavailable Unavailable Unavailable GLEN REZA Unavailable [address] + [address] [place] [address] WM MEDELLIN Unavailable [address] + [place] [address] D Unavailable Unavailable Unavailable GLEN REZA Unavailable [address] + [address] [place] [address] WM MEDELLIN Unavailable [address] + [place] [address] D Unavailable Unavailable Unavailable GLEN REZA Unavailable [address] + [address] [place] [address] WM MEDELLIN Unavailable [address] + [place] [address] D Unavailable Unavailable Unavailable GLEN REZA Unavailable [address] + [address] [place] [address] WM MEDELLIN Unavailable [address] + [place] [address] D Unavailable Unavailable Unavailable GLEN REZA Unavailable [address] + [address] [place] [address] WM MEDELLIN Unavailable [address] + [place] [address] D Unavailable Unavailable Unavailable GLEN REZA Unavailable [address] + [address] [place] [address] WM MEDELLIN Unavailable [address] + [place] [address] D Unavailable Unavailable Unavailable GLEN REZA Unavailable [address] + [address] [place] [address] WM MEDELLIN Unavailable [address] + [place] [address] D Unavailable Unavailable Unavailable GLEN REZA Unavailable [address] + [address] [place] [address] WM MEDELLIN Unavailable [address] + [place] [address] D Unavailable Unavailable Unavailable GLEN REZA Unavailable [address] + [address] [place] [address] WM MEDELLIN Unavailable [address] + [place] [address] D Unavailable Unavailable Unavailable GLEN REZA Unavailable [address] + [address] [place] [address] WM MEDELLIN Unavailable [address] + [place] [address] GLEN REZA Unavailable Unavailable + GLEN REZA Unavailable Unavailable + WM MEDELLIN Unavailable Unavailable + D Unavailable Unavailable Unavailable GLEN REZA Unavailable [address] + [address] [place] [address] WM MEDELLIN Unavailable [address] + [place] [address] D Unavailable Unavailable Unavailable GLEN REZA Unavailable [address] + [address] [place] [address] WM MEDELLIN Unavailable [address] + [place] [address] GLEN REZA Unavailable Unavailable + GLEN REZA Unavailable Unavailable + WM MEDELLIN Unavailable Unavailable + GLEN REZA Unavailable Unavailable + GLEN REZA Unavailable Unavailable + WM MEDELLIN Unavailable Unavailable + D Unavailable Unavailable Unavailable GLEN REZA Unavailable [address] + [address] [place] [address] WM MEDELLIN Unavailable [address] + [place] [address] D Unavailable Unavailable Unavailable GLEN REZA Unavailable [address] + [address] [place] [address] WM MEDELLIN Unavailable [address] + [place] [address] GLEN REZA Unavailable Unavailable + GLEN REZA Unavailable Unavailable + WM MEDELLIN Unavailable Unavailable + D Unavailable Unavailable Unavailable GLEN REZA Unavailable [address] + [address] [place] [address] WM MEDELLIN Unavailable [address] + [place] [address] D Unavailable Unavailable Unavailable JUAN DIEGO REZA Unavailable [address] + [address] [place] [address] WM MEDELLIN Unavailable [address] + [place] [address] D Unavailable Unavailable Unavailable JUAN DIEGO REZA Unavailable [address] + [address] [place] [address] WM MEDELLIN Unavailable [address] + [place] [address] D Unavailable Unavailable Unavailable JUAN DIEGO REZA Unavailable [address] + [address] [place] [address] WM MEDELLIN Unavailable [address] + [place] [address] D Unavailable Unavailable Unavailable JUAN DIEGO REZA Unavailable [address] + [address] [place] [address] WM MEDELLIN Unavailable [address] + [place] [address] D Unavailable Unavailable Unavailable JUAN DIEGO REZA Unavailable [address] + [address] [place] [address] WM MEDELLIN Unavailable [address] + [place] [address] D Unavailable Unavailable Unavailable GLEN REZA Unavailable [address] + [address] [place] [address] WM MEDELLIN Unavailable [address] + [place] [address] D Unavailable Unavailable Unavailable GLEN REZA Unavailable [address] + [address] [place] [address] WM MEDELLIN Unavailable [address] + [place] [address] D Unavailable Unavailable Unavailable GLEN REZA Unavailable [address] + [address] [place] [address] WM MEDELLIN Unavailable [address] + [place] [address] D Unavailable Unavailable Unavailable GLEN REZA Unavailable [address] + [address] [place] [address] WM MEDELLIN Unavailable [address] + [place] [address] D Unavailable Unavailable Unavailable JUAN DIEGO REZA Unavailable [address] + [address] [place] [address] WM MEDELLIN Unavailable [address] + [place] [address] GLEN REZA Unavailable Unavailable + GLEN REZA Unavailable Unavailable + WM MEDELLIN Unavailable Unavailable + D Unavailable Unavailable Unavailable JUAN DIEGO REZA Unavailable [address] + [address] [place] [address] WM MEDELLIN Unavailable [address] + [place] [address] D Unavailable Unavailable Unavailable JUAN DIEGO REZA Unavailable [address] + [address] [place] [address] WM MEDELLIN Unavailable [address] + [place] [address] D Unavailable Unavailable Unavailable JUAN DIEGO REZA Unavailable [address] + [address] [place] [address] LACIE WM Unavailable [address] + [place] [address] GLEN REZA Unavailable Unavailable + GLEN REZA Unavailable Unavailable + GLEN REZA Unavailable Unavailable + WM MEDELLIN Unavailable Unavailable + D Unavailable Unavailable Unavailable JUAN DIEGO REZA Unavailable [address] + [address] [place] [address] WM MEDELLIN Unavailable [address] + [place] [address] GLEN REZA Unavailable Unavailable + GLEN REZA Unavailable Unavailable + WM MEDELLIN Unavailable Unavailable + D Unavailable Unavailable Unavailable JUAN DIEGO REZA Unavailable [address] + [address] [place] [address] WM MEDELLIN Unavailable [address] + [place] [address] D Unavailable Unavailable Unavailable JUAN DIEGO REZA Unavailable [address] + [address] [place] [address] WM MEDELLIN Unavailable [address] + [place] [address] D Unavailable Unavailable Unavailable JUAN DIEGO REZA Unavailable [address] + [address] [place] [address] WM MEDELLIN Unavailable [address] + [place] [address] D Unavailable Unavailable Unavailable PETAR REZA Unavailable [address] + [address] [place] [address] WM MEDELLIN Unavailable [address] + [place] [address] D Unavailable Unavailable Unavailable PETAR REZA Unavailable [address] + [address] [place] [address] WM MEDELLIN Unavailable [address] + [place] [address] D Unavailable Unavailable Unavailable PETAR REZA Unavailable [address] + [address] [place] [address] WM MEDELLIN Unavailable [address] + [place] [address] D Unavailable Unavailable Unavailable PETAR REZA Unavailable [address] + [address] [place] [address] WM MEDELLIN Unavailable [address] + [place] [address] D Unavailable Unavailable Unavailable PETAR REZA Unavailable [address] + [address] [place] [address] WM MEDELLIN Unavailable [address] + [place] [address] D Unavailable Unavailable Unavailable PETAR REZA Unavailable [address] + [address] [place] [address] WM MEDELLIN Unavailable [address] + [place] [address] D Unavailable Unavailable Unavailable PETAR REZA Unavailable [address] + [address] [place] [address] WM MEDELLIN Unavailable [address] + [place] [address] D Unavailable Unavailable Unavailable PETAR REZA Unavailable [address] + [address] [place] [address] WM MEDELLIN Unavailable [address] + [place] [address] D Unavailable Unavailable Unavailable PETAR REZA Unavailable [address] + [address] [place] [address] WM MEDELLIN Unavailable [address] + [place] [address] D Unavailable Unavailable Unavailable PETAR REZA Unavailable [address] + [address] [place] [address] WM MEDELLIN Unavailable [address] + [place] [address] D Unavailable Unavailable Unavailable PETAR REZA Unavailable [address] + [address] [place] [address] WM MEDELLIN Unavailable [address] + [place] [address] D Unavailable Unavailable Unavailable PETAR REZA Unavailable [address] + [address] [place] [address] WM MEDELLIN Unavailable [address] + [place] [address] D Unavailable Unavailable Unavailable JUAN DIEGO REZA Unavailable [address] + [address] [place] [address] WM MEDELLIN Unavailable [address] + [place] [address] D Unavailable Unavailable Unavailable PETAR REZA Unavailable [address] + [address] [place] [address] WM MEDELLIN Unavailable [address] + [place] [address] D Unavailable Unavailable Unavailable PETAR REZA Unavailable [address] + [address] [place] [address] WM MEDELLIN Unavailable [address] + [place] [address] GLEN REZA Unavailable Unavailable + GLEN REZA Unavailable Unavailable + WM MEDELLIN Unavailable Unavailable + D Unavailable Unavailable Unavailable PETAR REZA Unavailable [address] + [address] [place] [address] WM MEDELLIN Unavailable [address] + [place] [address] D Unavailable Unavailable Unavailable PETAR REZA Unavailable [address] + [address] [place] [address] WM MEDELLIN Unavailable [address] + [place] [address] D Unavailable Unavailable Unavailable PETAR REZA Unavailable [address] + [address] [place] [address] WM MEDELLIN Unavailable [address] + [place] [address] D Unavailable Unavailable Unavailable PETAR REZA Unavailable [address] + [address] [place] [address] WM MEDELLIN Unavailable [address] + [place] [address] D Unavailable Unavailable Unavailable PETAR REZA Unavailable [address] + [address] [place] [address] WM MEDELLIN Unavailable [address] + [place] [address] GLEN REZA Unavailable Unavailable + GLEN REZA Unavailable Unavailable + WM MEDELLIN Unavailable Unavailable + GLEN REZA Unavailable Unavailable + GLEN REZA Unavailable Unavailable + WM MEDELLIN Unavailable Unavailable + D Unavailable Unavailable Unavailable PETAR REZA Unavailable [address] + [address] [place] [address] WM MEDELLIN Unavailable [address] + [place] [address] D Unavailable Unavailable Unavailable JUAN DIEGO REZA Unavailable [address] + [address] [place] [address] WM MEDELLIN Unavailable [address] + [place] [address] D Unavailable Unavailable Unavailable PETAR REZA Unavailable [address] + [address] [place] [address] WM MEDELLIN Unavailable [address] + [place] [address] D Unavailable Unavailable Unavailable PETAR REZA Unavailable [address] + [address] [place] [address] WM MEDELLIN Unavailable [address] + [place] [address] GLEN REZA Unavailable Unavailable + GLEN REZA Unavailable Unavailable + WM MEDELLIN Unavailable Unavailable + D Unavailable Unavailable Unavailable PETAR REZA Unavailable [address] + [address] [place] [address] WM MEDELLIN Unavailable [address] + [place] [address] D Unavailable Unavailable Unavailable PETAR REZA Unavailable [address] + [address] [place] [address] WM MEDELLIN Unavailable [address] + [place] [address] D Unavailable Unavailable Unavailable PETAR REZA Unavailable [address] + [address] [place] [address] WM MEDELLIN Unavailable [address] + [place] [address] D Unavailable Unavailable Unavailable PETAR REZA Unavailable [address] + [address] [place] [address] WM MEDELLIN Unavailable [address] + [place] [address] GLEN REZA Unavailable Unavailable + GLNE REZA Unavailable Unavailable + WM MEDELLIN Unavailable Unavailable + GLEN REZA Unavailable Unavailable + GLEN REZA Unavailable Unavailable + WM MEDELLIN Unavailable Unavailable + D Unavailable Unavailable Unavailable PETAR REZA Unavailable [address] + [address] [place] [address] WM MEDELLIN Unavailable [address] + [place] [address] GLNE REZA Unavailable Unavailable + GLEN REZA Unavailable Unavailable + WM MEDELLIN Unavailable Unavailable + D Unavailable Unavailable Unavailable PETAR REZA Unavailable [address] + [address] [place] [address] WM MEDELLIN Unavailable [address] + [place] [address] D Unavailable Unavailable Unavailable PETAR REZA Unavailable [address] + [address] [place] [address] LACIEHOLLYEL Unavailable [address] + [place] [address] D Unavailable Unavailable Unavailable PETAR REZA Unavailable [address] + [address] [place] [address] LACIEHOLLYEL Unavailable [address] + [place] [address] D Unavailable Unavailable Unavailable PETAR REZA Unavailable [address] + [address] [place] [address] LACIE WM Unavailable [address] + [place] [address] D Unavailable Unavailable Unavailable JUAN DIEGO REZA Unavailable [address] + [address] [place] [address] WM MEDELLIN Unavailable [address] + [place] [address] D Unavailable Unavailable Unavailable JUAN DIEGO REZA Unavailable [address] + [address] [place] [address] WM MEDELLIN Unavailable [address] + [place] [address] D Unavailable Unavailable Unavailable PETAR REZA Unavailable [address] + [address] [place] [address] WM MEDELLIN Unavailable [address] + [place] [address] D Unavailable Unavailable Unavailable PETAR REZA Unavailable [address] + [address] [place] [address] WM MEDELLIN Unavailable [address] + [place] [address] D Unavailable Unavailable Unavailable PETAR REZA Unavailable [address] + [address] [place] [address] WM MEDELLIN Unavailable [address] + [place] [address] D Unavailable Unavailable Unavailable PETAR REZA Unavailable [address] + [address] [place] [address] WM MEDELLIN Unavailable [address] + [place] [address] D Unavailable Unavailable Unavailable PETAR REZA Unavailable [address] + [address] [place] [address] WM MEDELLIN Unavailable [address] + [place] [address] D Unavailable Unavailable Unavailable PETAR REZA Unavailable [address] + [address] [place] [address] WM MEDELLIN Unavailable [address] + [place] [address] D Unavailable Unavailable Unavailable PETAR REZA Unavailable [address] + [address] [place] [address] WM MEDELLIN Unavailable [address] + [place] [address] GLEN REZA Unavailable Unavailable + GLEN REZA Unavailable Unavailable + WM MEDELLIN Unavailable Unavailable + GLEN REZA Unavailable Unavailable + GLEN REZA Unavailable Unavailable + WM MEDELLIN Unavailable Unavailable + D Unavailable Unavailable Unavailable PETAR REZA Unavailable [address] + [address] [place] [address] WM MEDELLIN Unavailable [address] + [place] [address] D Unavailable Unavailable Unavailable PETAR REZA Unavailable [address] + [address] [place] [address] WM MEDELLIN Unavailable [address] + [place] [address] D Unavailable Unavailable Unavailable PETAR REZA Unavailable [address] + [address] [place] [address] WM MEDELLIN Unavailable [address] + [place] [address] D Unavailable Unavailable Unavailable PETAR REZA Unavailable [address] + [address] [place] [address] WM MEDELLIN Unavailable [address] + [place] [address] D Unavailable Unavailable Unavailable PETAR REZA Unavailable [address] + [address] [place] [address] LACIEHOLLYEL Unavailable [address] + [place] [address] D Unavailable Unavailable Unavailable PETAR REZA Unavailable [address] + [address] [place] [address] LACIE WM Unavailable [address] + [place] [address] D Unavailable Unavailable Unavailable PETAR REZA Unavailable [address] + [address] [place] [address] LACIEHOLLYEL Unavailable [address] + [place] [address] D Unavailable Unavailable Unavailable PETAR REZA Unavailable [address] + [address] [place] [address] WM MEDELLIN Unavailable [address] + [place] [address] D Unavailable Unavailable Unavailable PETAR REZA Unavailable [address] + [address] [place] [address] LACIE WM Unavailable [address] + [place] [address] D Unavailable Unavailable Unavailable PETAR REZA Unavailable [address] + [address] [place] [address] WM MEDELLIN Unavailable [address] + [place] [address] D Unavailable Unavailable Unavailable PETAR REZA Unavailable [address] + [address] [place] [address] WM MEDELLIN Unavailable [address] + [place] [address] PETAR REZA Unavailable Unavailable + D Unavailable Unavailable Unavailable PETAR REZA Unavailable [address] + [address] [place] [address] WM MEDELLIN Unavailable [address] + [place] [address] D Unavailable Unavailable Unavailable PETAR REZA Unavailable [address] + [address] [place] [address] WM MEDELLIN Unavailable [address] + [place] [address] D Unavailable Unavailable Unavailable PETAR REZA Unavailable [address] + [address] [place] [address] WM MEDELLIN Unavailable [address] + [place] [address] D Unavailable Unavailable Unavailable PETAR REZA Unavailable [address] + [address] [place] [address] WM MEDELLIN Unavailable [address] + [place] [address] D Unavailable Unavailable Unavailable PETAR REZA Unavailable [address] + [address] [place] [address] WM MEDELLIN Unavailable [address] + [place] [address] D Unavailable Unavailable Unavailable PETAR REZA Unavailable [address] + [address] [place] [address] WM MEDELLIN Unavailable [address] + [place] [address] D Unavailable Unavailable Unavailable PETAR REZA Unavailable [address] + [place] [address] WM MEDELLIN Unavailable [address] + [place] [address] Care Team Providers Name Role Phone White, Rivka Admitting Unavailable Paintsil, Linden Attending Unavailable White, Rivka Referring Unavailable [facility] Care Unavailable Leda, Robert Consulting Unavailable Tanphaichitr, Natthavat Consulting Unavailable Paintsil, Linden Consulting Unavailable White, Rivka Admitting Unavailable Paintsil, Linden Attending Unavailable White, Rivka Referring Unavailable [facility] Care Unavailable Leda, [place] Consulting Unavailable Tanphaichitr, Natthavat Consulting Unavailable Paintsil, Linden Consulting Unavailable [facility] Care Unavailable Matt Andersen Attending Unavailable Leda, [place] Attending Unavailable White, Rivka Referring Unavailable Wm Underwood Attending Unavailable [facility] Referring Unavailable [facility] Care Unavailable Paintsil, Linden Admitting Unavailable Paintsil, Linden Attending Unavailable Cyn, Bryant Consulting Unavailable Juan, Jayaprakash Consulting Unavailable Paintsil, Linden Admitting Unavailable Paintsil, Linden Attending Unavailable [facility] Unavailable Paintsil, Linden Consulting Unavailable Paintsil, Linden Admitting Unavailable Paintsil, Linden Attending Unavailable [facility] Unavailable Cyn, Bryant Consulting Unavailable Juan, Jayaprakash Consulting Unavailable Paintsil, Linden Consulting Unavailable Paintsil, Linden Admitting Unavailable Paintsil, Linden Attending Unavailable [facility] Unavailable Cyn, Bryant Consulting Unavailable Juan, Jayaprakash Consulting Unavailable Paintsil, Linden Consulting Unavailable [facility] Unavailable Jopperi, Roberto Admitting Unavailable Slaby, Kayode Consulting Unavailable Sementi, Jennifer Attending Unavailable Juan, Jayaprakash Consulting Unavailable Jopperi, Roberto Admitting Unavailable Jopperi, Roberto Attending Unavailable [facility] Unavailable Jopperi, Roberto Consulting Unavailable Jopperi, Roberto Admitting Unavailable Slaby, Kayode Attending Unavailable [facility] Unavailable Slaby, Kayode Consulting Unavailable Ashelfah, Ghasem Consulting Unavailable Jopperi, Roberto Admitting Unavailable Ashelfah, Ghasem Attending Unavailable [facility] Unavailable Slaby, Kayode Consulting Unavailable Juan, Jayaprakash Consulting Unavailable Ashelfah, Ghasem Consulting Unavailable Jopperi, Roberto Admitting Unavailable Sementi, Jennifer Attending Unavailable [facility] Unavailable Slaby, Kayode Consulting Unavailable Juan, Jayaprakash Consulting Unavailable Sementi, Jennifer Consulting Unavailable Jopperi, Roberto Admitting Unavailable Sementi, Jennifer Attending Unavailable [facility] Unavailable Slaby, Kayode Consulting Unavailable Juan, Jayaprakash Consulting Unavailable Sementi, Jennifer Consulting Unavailable [facility] Unavailable Ashelfah, Ghasem Admitting Unavailable Sementi, Jennifer Attending Unavailable Juan, Jayaprakash Consulting Unavailable Ashelfah, Ghasem Admitting Unavailable Ashelfah, Ghasem Attending Unavailable [facility] Unavailable Ashelfah, Ghasem Consulting Unavailable Ashelfah, Ghasem Admitting Unavailable Sementi, Jennifer Attending Unavailable Hermann, Ric [facility] Unavailable Juan, Jayaprakash Consulting Unavailable Sementi, Jennifer Consulting Unavailable Ashelfah, Ghasem Admitting Unavailable Sementi, Jennifer Attending Unavailable [facility] Care Unavailable Juan, Jayaprakash Consulting Unavailable Sementi, Jennifer Consulting Unavailable Ashelfah, Ghasem Admitting Unavailable Sementi, Jennifer Attending Unavailable [facility] Primary Care Unavailable Juan, Jayaprakash Consulting Unavailable Sementi, Jennifer Consulting Unavailable [facility] Care Unavailable Anila Bartlett Attending Unavailable [facility] Care Unavailable Imamura, Yoichi Admitting Unavailable Cyn, Bryant Consulting Unavailable Roberto Roman Attending Unavailable Tanphaichitr, Natthavat Consulting Unavailable Imamura, Yoichi Admitting Unavailable [facility] Care Unavailable Cyn, Bryant Consulting Unavailable Ashelfah, Ghasem Attending Unavailable Imamura, Yoichi Consulting Unavailable Imamura, Yoichi Admitting Unavailable Roberto Roman Attending Unavailable [facility] Care Unavailable Cyn, Bryant Consulting Unavailable Tanphaichitr, Natthavat Consulting Unavailable Jopperi Roberto Consulting Unavailable Imamura, Yoichi Admitting Unavailable Roberto Roman Attending Unavailable [facility] Care Unavailable Cyn, Bryant Consulting Unavailable Tanphaichitr, Natthavat Consulting Unavailable Jopperi Roberto Consulting Unavailable Imamura, Yoichi Admitting Unavailable AzaliapperiRoberto Attending Unavailable [facility] Care Unavailable Cyn, Bryant Consulting Unavailable Tanphaichitr, Natthavat Consulting Unavailable Azaliappradha Roberto Consulting Unavailable Shad, Alireza Admitting Unavailable [facility] Care Unavailable Nawaf Valdivia Consulting Unavailable Anthony Hill Attending Unavailable Wm Underwood Consulting Unavailable Shad, Alireza Admitting Unavailable Shad, Alireza Attending Unavailable [facility] Primary Care Unavailable Shad, Alireza Consulting Unavailable Shad, Alireza Admitting Unavailable [facility] Care Unavailable Yonas Valdiviaiz Consulting Unavailable Anthony Hill Attending Unavailable Wm Underwood Consulting Unavailable Anthony Hill Consulting Unavailable Shad, Alireza Admitting Unavailable Wm Underwood Attending Unavailable [facility] Primary [facility] Unavailable Yonas Valdiviaiz Consulting Unavailable Wm Underwood Consulting Unavailable Anthony Hill Consulting Unavailable Shad, Alireza Admitting Unavailable Wm Underwood Attending Unavailable [facility] Unavailable Bakhous, Aziz Consulting Unavailable Wm Underwood Consulting Unavailable Anthony Hill Consulting Unavailable Kayode Munroe Attending Unavailable [facility] Unavailable Anthony Hill Attending Unavailable Wm Underwood Attending Unavailable [facility] Unavailable Jose Luis Payne Attending Unavailable Kayode Munroe Attending Unavailable [facility] Unavailable [facility] Unavailable Jose Luis Payne Attending Unavailable Gurinder Gonzales Attending Unavailable Gurinder Gonzales Referring Unavailable [facility] Unavailable [facility] Unavailable White, Rivka Admitting Unavailable White, Rivka Attending Unavailable Juan, Jayaprakash Consulting Unavailable White, Rivka Admitting Unavailable White, Rivka Attending Unavailable [facility] Unavailable Juan, Jayaprakash Consulting Unavailable White, Rivka Consulting Unavailable White, Rivka Admitting Unavailable White, Rivka Attending Unavailable [facility] Unavailable Juan, Jayaprakash Consulting Unavailable White, Rivka Consulting Unavailable [facility] Unavailable [place] Attending Unavailable [facility] Unavailable Matt Andersen Attending Unavailable [facility] Unavailable Jules Story Attending Unavailable Kayode Munroe Attending Unavailable [facility] Unavailable [facility] Unavailable Tereletsky, Nahun Admitting Unavailable Bakhous, Aziz Consulting Unavailable White, Rivka Attending Unavailable Tereletsky, Nahun Admitting Unavailable Terviryky, Nahun Attending Unavailable [facility] Unavailable Bakhous, Aziz Consulting Unavailable Tereletsky, Nahun Consulting Unavailable Tereletsky, Nahun Admitting Unavailable White, Rivka Attending Unavailable [facility] Unavailable Bakhous, Aziz Consulting Unavailable White, Rivka Consulting Unavailable Kayode Munroe Attending Unavailable [facility] Unavailable Kayode Munroe Attending Unavailable [facility] Unavailable [facility] Unavailable Roberto Roman Admitting Unavailable Peter, Kaitlynn Consulting Unavailable Francois Soler Attending Unavailable Bakhous, Aziz Consulting Unavailable Roberto Roman Attending Unavailable [facility] Unavailable Abel, Roberto Admitting Unavailable Roberto Roman Attending Unavailable [facility] Unavailable Alysiaispaw, Kaitlynn Consulting Unavailable Azaliapperi, Roberto Consulting Unavailable Jopperi, Roberto Admitting Unavailable MoodKaitlynn wills Attending Unavailable [facility] Unavailable Moodjingpaeben, Kaitlynn Consulting Unavailable Jopperi, Roberto Consulting Unavailable Jopperi, Roberto Admitting Unavailable [facility] Unavailable Moodispaeben, Kaitlynn Consulting Unavailable Ashelfah, Ghasem Attending Unavailable Bakhous, Aziz Consulting Unavailable Ashelfah, Ghasem Consulting Unavailable Jopperi, Roberto Admitting Unavailable Wm Underwood Attending Unavailable [facility] Unavailable Moodispaeben, Kaitlynn Consulting Unavailable Bakhous, Aziz Consulting Unavailable Ashelfah, Ghasem Consulting Unavailable Jopperi, Roberto Admitting Unavailable Ashelfah, Ghasem Attending Unavailable [facility] Unavailable Moodispaeben, Kaitlynn Consulting Unavailable Bakhous, Aziz Consulting Unavailable Ashelfah, Ghasem Consulting Unavailable [facility] Unavailable Koram, Adrienne Jesenia Admitting Unavailable Koram, Adrienne Jesenia Attending Unavailable Juan, Jayaprakash Consulting Unavailable Koram, Adrienne Jesenia Admitting Unavailable Kor, Adrienne Jesenia Attending Unavailable [facility] Unavailable Juan, Jayaprakash Consulting Unavailable Kor, Adrienne Jesenia Consulting Unavailable [facility] Unavailable Roberto Mills Attending Unavailable Wm Underwood Attending Unavailable Juan, Ivania Attending Unavailable Kaitlynn Green Attending Unavailable [facility] Unavailable [place] Attending Unavailable Placido Tomlinson Attending Unavailable [facility] Referring Unavailable [facility] Unavailable [facility] Unavailable Pio Krishnamurthy Attending Unavailable [facility] Unavailable Jules Story Attending Unavailable Kayode Munroe Attending Unavailable [facility] Unavailable Kayode Munroe Consulting Unavailable Kayode Munroe Attending Unavailable [facility] Unavailable Kayode Munroe Consulting Unavailable Kayode Munroe Attending Unavailable [facility] Unavailable Kayode Munroe Consulting Unavailable [facility] Unavailable Zach Holt Attending Unavailable Kaitlynn Green Attending Unavailable Ashelfah, Ghasem Referring Unavailable Kaitlynn Castillo Admitting Unavailable [facility] Unavailable Tanphaichitr, Natthavat Consulting Unavailable Anthony Hill Attending Unavailable Kaitlynn Castillo Admitting Unavailable Kaitlynn Castillo Attending Unavailable [facility] Unavailable Kaitlynn Castillo Consulting Unavailable [facility] Unavailable Wm Matos Attending Unavailable Wm Underwood Attending Unavailable Anthony Hill Referring Unavailable [facility] Unavailable Nahun Garcia Admitting Unavailable MoodjingpaKaitlynn treadwell Consulting Unavailable Jolene San Attending Unavailable Juan, Jayaprakash Consulting Unavailable Nahun Garcia Admitting Unavailable Nahun Garcia Attending Unavailable [facility] Unavailable MoodjingpaKaitlynn treadwell Consulting Unavailable Juan, Jayaprakash Consulting Unavailable Nahun Garcia Consulting Unavailable Nahun Garcia Admitting Unavailable Kaitlynn Green Attending Unavailable [facility] Unavailable MoodKaitlynn wills Consulting Unavailable Juan, Jayaprakash Consulting Unavailable Nahun Garcia Consulting Unavailable Nahun Garcia Admitting Unavailable Kaitlynn Green Attending Unavailable [facility] Unavailable MoodKaitlynn wills Consulting Unavailable Juan, Jayaprakash Consulting Unavailable Nahun Garcia Consulting Unavailable Nahun Garcia Admitting Unavailable Nahun Garcia Attending Unavailable [facility] Unavailable Kaitlynn Green Consulting Unavailable Juan, Jayaprakash Consulting Unavailable Nahun Garcia Consulting Unavailable Nahun Garcia Admitting Unavailable Wm Underwood Attending Unavailable [facility] Unavailable Kaitlynn Green Consulting Unavailable Juan, Jayaprakash Consulting Unavailable Nahun Garcia Consulting Unavailable Nahun Garcia Admitting Unavailable Nahun Garcia Attending Unavailable [facility] Unavailable MoodKaitlynn wills Consulting Unavailable Juan, Jayaprakash Consulting Unavailable Nahun Garcia Consulting Unavailable Nahun Garcia Admitting Unavailable Wm Underwood Attending Unavailable [facility] Unavailable MoodispaKaitlynn treadwell Consulting Unavailable Juan, Jayaprakash Consulting Unavailable Gerard Marie, Jolene Consulting Unavailable Nahun Garcia Admitting Unavailable Jolene San Attending Unavailable [facility] Unavailable MoodjingpaKaitlynn treadwell Consulting Unavailable Juan, Jayaprakash Consulting Unavailable Mena, Jolene Consulting Unavailable Nahun Garcia Admitting Unavailable Jolene San Attending Unavailable [facility] Unavailable MoodjingpaKaitlynn treadwell Consulting Unavailable Juan, Jayaprakash Consulting Unavailable [place], Jolene Consulting Unavailable [place], [facility] Primary Care Unavailable Jules Story Attending Unavailable [place], [facility] Primary Care Unavailable Matt Andersen Attending Unavailable [place], Ric Primary Care Unavailable Matt Andersen Attending Unavailable White, Rivka Admitting Unavailable White, Rivka Referring Unavailable [place], Ric Primary Care Unavailable Leda, Robert Consulting Unavailable Paintsil, Linden Attending Unavailable Tanphaichitr, Natthavat Consulting Unavailable White, Rivka Admitting Unavailable White, Rivka Attending Unavailable White, Rivka Referring Unavailable [place], Ric Primary Care Unavailable Leda, Robert Consulting Unavailable White, Rivka Consulting Unavailable White, Rivka Admitting Unavailable Wm Underwood Attending Unavailable White, Rivka Referring Unavailable [place], Ric Primary Care Unavailable Leda, [place] Consulting Unavailable Tanphaichitr, Natthavat Consulting Unavailable Paintsil, Linden Consulting Unavailable [place], [facility] Primary Care Unavailable White, Rivka Admitting Unavailable White, Rivka Attending Unavailable Petty Zhang Consulting Unavailable Tanphaichitr, Natthavat Consulting Unavailable Kayode Munroe Consulting Unavailable Fátima Luo Consulting Unavailable PA-C, Emily Consulting Unavailable Wicho PA-C, Emily Consulting Unavailable Bryant Addison Consulting Unavailable JUAN CARLOS GAN MD Attending Unavailable HERMANN BEASLEY, RIC Primary Care Unavailable JOSE WILDE MD Attending Unavailable HERMANN BEASLEY, RIC Primary Care Unavailable PATTIE BEASLEY., DR. RODRIGUEZ Consulting Unavailable JOSE KAHN Attending Unavailable RIC MCCRARY MD Primary Care Unavailable Susan Samaniego MD Attending Unavailable RIC MCCRARY MD Primary Care Unavailable VEE ALVAREZ MD Attending Unavailable RIC MCCRARY MD Primary Care Unavailable Susan Samaniego MD Attending Unavailable RIC MCCRARY MD Primary Care Unavailable PARI BEASLEY., DR. VU Attending Unavailable RIC MCCRARY MD Primary Care Unavailable RIC MCCRARY MD Primary Care Unavailable JUAN CARLOS GAN MD Attending Unavailable MADDIE COLLINS MD Attending Unavailable RIC MCCRARY MD Primary Care Unavailable Susan Samaniego MD Attending Unavailable RIC MCCRARY MD Primary Care Unavailable PARI BEASLEY., DR. VU Attending Unavailable HERMANN BEASLEY, RIC Primary Care Unavailable SAMIA ELLSWORTH Attending Unavailable PHYSICIAN, NONE Primary Care Unavailable Susan Samaniego MD Attending Unavailable HERMANN BEASLEY, RIC Primary Care Unavailable SAMIA ELLSWORTH Attending Unavailable HERMANN BEASLEY, RIC Primary Care Unavailable DMITRIY CRAIG DO Attending Unavailable HERMANN BEASLEY, RIC Primary Care Unavailable JOSE WILDE MD Attending Unavailable HERMANN BEASLEY, RIC Primary Care Unavailable KIM BEASLEY, VEE Attending Unavailable HERMANN BEASLEY, RIC Primary Care Unavailable BERNARDO GALVAN Attending Unavailable HERMANN BEASLEY, RIC Primary Care Unavailable PETTY ZHANG Attending Unavailable PETTY ZHANG Referring Unavailable Reji HARTLEY (PA-C) Attending Unavailable Reji HARTLEY (PA-C) Referring Unavailable Reji HARTLEY (PA-C) Referring Unavailable PETTY ZHANG Attending Unavailable Reji HARTLEY (PA-C) Referring Unavailable RIC MCCRARY Attending Unavailable RIC MCCRARY Referring Unavailable PETTY ZHANG Attending Unavailable ELBA DOWNS ([facility]) Attending Unavailable RIC MCCRARY Referring Unavailable Jagjit Abraham Attending Unavailable PROBLEMS PROBLEMS DATE TYPE CONDITION / CODE ATTENDING STATUS SOURCE Unknown I25.10 - Leda, [place] Active [place] 8 Atherosclerotic heart [facility] disease [facility] coronary artery Repository without angina pectoris / I25.10(ICD-10) Unknown E78.5 - Leda, Robert Active [place] 8 Hyperlipidemia, Community unspecified / Hospital E78.5(ICD-10) Repository Unknown Z95.5 - Presence of Leda, Robert Active [place] 8 coronary angioplasty Community implant and graft / Hospital Z95.5(ICD-10) Repository Unknown R07.9 - Chest pain, UnderwoodWm Active [place] 8 unspecified / Community R07.9(ICD-10) Hospital Repository Unknown N18.6 - End stage Ashelf[place], Active [place] 8 renal disease / Ghasem Community N18.6(ICD-10) Hospital Repository Unknown Z99.2 - Dependence on Ashelfah, Active [place] 8 renal dialysis / [place] Community Z99.2(ICD-10) Hospital Repository Unknown R94.31 - Abnormal Moodispaw, Active [place] 8 electrocardiogram [facility] [ECG] [EKG] / Hospital R94.31(ICD-10) Repository Unknown I25.110 - Moodispaw, Active [place] 8 Atherosclerotic heart [facility] coronary artery with Repository unstable angina pectoris / I25.110(ICD-10) Unknown N61.1 - Abscess of the Kayode Munroe Active [place] 8 breast and nipple / Community N61.1(ICD-10) Hospital Repository Active [place] / K92.1(ICD-10) NA Active [place] [address] Clinic Main [place] Repository Active Enterocolitis due to NA Active [place] [address] Clostridium difficile, Clinic Main not specified as [place] recurrent / Repository A04.72(ICD-10) Active Essential (primary) NA Active [place] [address] hypertension / Clinic Main I10(ICD-10) [place] Repository Active Type 2 diabetes NA Active [place] [address] mellitus with diabetic Clinic Main chronic kidney disease [place] / E11.22(ICD-10) Repository Active End stage renal NA Active [place] [address] disease / Clinic Main N18.6(ICD-10) [place] Repository Active Dependence on renal NA Active [place] [address] dialysis / Clinic Main Z99.2(ICD-10) [place] Repository Active superintendent terminal (current) NA Active [place] [address] use of insulin / Clinic Main Z79.4(ICD-10) [place] Repository Admitting Unknown / UNK(Unknown) Jagjit Abraham Active [place] [address] diagnosis M. [place] Repository Unknown L05.01 - Pilonidal Sementi, Active [place] 8 cyst with abscess / Jennifer Community L05.01(ICD-10) Hospital Repository Unknown F41.9 - Anxiety White, Rivka Active [place] 8 disorder, unspecified Community / F41.9(ICD-10) Hospital Repository PROCEDURES PROCEDURES No Procedure Records FoundRESULTS RESULTS DISCHARGE SUMMARY Observed: 08/11/2018 Status: F Source: [place] 12:46 PM [facility] REPOSITORY [facility] Medical Records Department [address] [place] [address] Discharge Summary 08/11/18 0956 MR#: [id number] Acct: [id number] Name: LIBIAKOURTNEY Van Rep #: [id number] : 1975 42 From: Meghann Pressley MD PCP: Ric Mccrary MD Status: ADM IN Y Location: MS3 [id number] Discharge Date and Diagnosis - Problem List Patient Problems: Active and Suspected Problems (Last Reviewed 07/27/18 @ 11:56 by Pricila Olson) Cellulitis (Acute) Date of Admission: 08/09/18 Date of Discharge: 08/11/18 - Primary Discharge Diagnosis Active and Suspected Problems (Last Reviewed 07/27/18 @ 11:56 by Pricila Olson) Cellulitis (Acute) Elevated lactic acid Anterior abdominal wall pannus deborah intertrigo - Secondary Discharge Diagnosis Chronic Problems (Last Reviewed 07/27/18 @ 11:56 by Pricila Olson) CAD (coronary artery disease) (Chronic) Stented coronary artery (Chronic 02/26/18) FFR of LAD 0.82; VIKY of mid LAD with 2.5 X 24 mm Promus Synergy, OM <50% stenosis per Dr. 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) S/P PTCA/VIKY to mid LAD in February 2018 OM #1 noted to be 50%; ESRD (end stage renal disease) on dialysis (Chronic) Decubitus ulcer, stage III (Chronic) Anemia, chronic disease (Chronic) Pilonidal cyst with abscess (Chronic) GABRIEL (obstructive sleep apnea) (Chronic) Depression (Chronic) Anxiety (Chronic) HTN (hypertension) (Chronic) Nonischemic cardiomyopathy (Chronic) EF 45% per echo 07/01/2018 S/P repair of PDA (patent ductus arteriosus) (Chronic) At young age Diabetes mellitus type 1 (Chronic) Hyperlipidemia (Chronic) Obesity (BMI 30.0-34.9) (Chronic) Gastroparesis (Chronic) Hospital Course and Treatment Consultations 08/09/18 16:40 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 1. Acute cellulitis of the anterior abdominal wall, no signs of sepsis, no SIRS criteria, history of necrotizing fasciitis, started on IV Unasyn and vancomycin, ID consulted. Redness and pain resolved after 2 days of Iv antibiotics. She was discharged on doxycycline and Augmentin for 5 more days. 2. Elevated lactic acid, likely related to cellulitis versus dehydration, resolved soon after admission and hydration. 3. Anterior abdominal wall pannus Deborah intertrigo, present on admission, managed on nystatin powder. Patient Problems: Active and Suspected Problems (Last Reviewed 07/27/18 @ 11:56 by Pricila Olson) Cellulitis (Acute) Subjective: The day of discharge, patient was seen and examined. No new complaints. Was seen on dialysis. Denies any fever or chills. Redness of the anterior abdominal wall was gone. Objective: Physical Exam General: Alert, Oriented x3, Cooperative, No apparent distress, - - on 3L oxygen HEENT: Atraumatic, PERRLA, EOMI, Normocephalic Oral: Moist Mucosa Neck: Supple, No JVD, Negative Carotid Bruits Lungs: Clear to auscultation, Normal air movement Cardiovascular: Regular rate, Regular Rhythm, Normal S1, Normal S2, No murmurs Abdomen: Bowel Sounds Present, Soft, No Hepato-splenomegaly, - -Resolving erythema of the anterior abdominal wall. Colostomy site is pink. Colostomy bag has greenish-brown stools. Extremities: No edema Skin: No rashes, No breakdown Musculoskeletal: No Tenderness to Palpation of Joints or Extremities Lymphatic: No Cervical, Supraclavicular, or Inguinal Adenopathy Neurological: Cranial nerves II-XII grossly intact, Neuro grossly intact Psych/Mental Status: Normal Affect, Appropriate - Physical Exam Vital Signs Temp Pulse Resp BP Pulse Ox 98.1 F 72 16 114/63 96 08/11/18 02:03 08/11/18 03:57 08/11/18 02:03 08/11/18 02:03 08/11/18 07:20 Oxygen Flow Rate (L/min) 2 Oxygen Delivery Method Nasal Cannula Weight: 90.67 kg Body Mass Index (BMI) 32.2 Finger Stick Blood Glucose 118 Intake and Output for Last 24 Hours Intake Total 1200 / 1200 2339 / 2339 750 / 750 Output Total 350 / 350 Balance 1200 / 1200 1988 750 / 750 POC Glucose POC Glucose 194 H 134 H 101 POC Glucose 119 H 126 H Discharge Diet: Carb Control Diet, Renal Diet Discharge Activity: Return to Normal Activity Home Medications: Medications to take at Discharge Aspirin [Aspirin, Baby] 81 mg PO DAILY@0800 01/26/16 Calcium Acetate [Phoslo Gel Cap] 1,334 mg PO TIDCM 01/26/16 Ergocalciferol [Vitamin D] 50,000 unit PO MO 01/26/16 Insulin Aspart [Novolog Flexpen] 10 units SC TIDCM 01/26/16 Insulin Glargine,Hum.rec.anlog [Lantus] 4 unit SQ QHS 01/09/17 proMETHazine tablet [Phenergan tablet] 25 mg PO Q6H PRN PRN #10 tab 03/06/17 Lisinopril 20 mg PO DAILY 03/29/17 Sodium Bicarbonate 650 mg PO 4X/DAY 03/29/17 Atorvastatin Calcium [Lipitor] 20 mg PO QHS 05/26/18 Carvedilol [Coreg] 25 mg PO BID 05/26/18 Loperamide HCl [Imodium A-D] 2 mg PO TID PRN 05/26/18 Pantoprazole Sodium [Protonix] 20 mg PO BID 05/26/18 Clopidogrel Bisulfate [Plavix] 75 mg PO DAILY 07/01/18 Albuterol Aerosols [Ventolin Aerosols] 2.5 mg INHALATION Q2H PRN PRN #30 vial.neb. 07/03/18 Lidocaine/Prilocaine HCl [Emla Cream W/Tegaderm] 1 applicatio TOPICAL X1 #1 tube 07/03/18 ALPRAZolam [Xanax] 0.5 mg PO PRN PRN 08/09/18 Acetaminophen 650 mg PO PRN PRN 08/09/18 B Complex W-C No.20/Folic Acid [Nephrocaps Softgel] 1 mg PO DAILY 08/09/18 Fluoxetine HCl 40 mg PO DAILY 08/09/18 Hydroxyzine HCl 50 mg PO TUTHSA 08/09/18 Isosorbide Mononitrate [Imdur] 60 mg PO DAILY 08/09/18 Acetaminophen [Tylenol Tablet] 650 mg PO Q6H PRN PRN tablet 08/11/18 Amoxicillin/Potassium Clav [Augmentin 500-125 Tablet] 1 each PO DAILY #5 tablet 08/11/18 Doxycycline 100 mg PO BID #10 capsule 08/11/18 Nystatin Powder [Mycostatin Powder] 1 applic TOPICAL BID #1 bottle 08/11/18 Following Prescrptions Were Given to Patient: Amoxicillin/Potassium Clav [Augmentin 500-125 Tablet] 1 each PO DAILY #5 tablet Doxycycline 100 mg PO BID #10 capsule Nystatin Powder [Mycostatin Powder] 1 applic TOPICAL BID #1 bottle Primary Care Physician: Ric Mccrary MD [Primary Care Provider] - Please follow up with your Primary Care Physician in: within 2 weeks of discharge Please Follow Up With: Chey Martinez MD When: In dialysis as scheduled Disposition: Home Minutes spent on discharge:: 40 Patient Condition:: Stable Medical Necessity - Tobacco Use Smoking Status: Current some day smoker Tobacco Use: Cigarettes Meaningful Use Info Meaningful Use Diagnoses (Choose all that apply): None applicable Code Visit Inpatient E AND M: 85140 Disch Hosp 08/11/18 1246 <Electronically signed by Meghann Pressley MD> Date Meghann Pressley MD Cosigner Signature (if applicable): Date CC: Meghann Pressley MD; Ric Mccrary MD Signed BEDSIDE GLUCOSE Collected: 08/11/2018 Status: F Source: [place] 11:20 AM [facility] REPOSITORY TYPE CODE TESTS RESULT OUT OF RANGE REFERENCE UNITS LAB L501.080 70-110 mg/dL Normal BEDSIDE GLU 105 Result Comment: MANAGEMENT OF PATIENT CARE PER NURSING PROTOCOL Performed By: #### L501.080 #### [facility] Point of Care [address] [place] [address] DISCHARGE INSTRUCTION Observed: 08/11/2018 Status: F Source: [place] 9:56 AM [facility] REPOSITORY [facility] Medical Records Department [address] [place] [address] Instructions for Home/Discharge Instructions 08/11/18 0955 MR#: [id number] Acct: [id number] Name: KOURTNEY REZA Rep #: [id number] : 1975 42 From: Meghann Pressley MD PCP: Ric Mccrary MD Status: ADM IN - Discharge Diagnoses Current Active Problems: Current Active and Chronic Problems (Last Reviewed 07/27/18 @ 11:56 by Pricila Olson) Cellulitis (Acute) Reason(s) for Visit for Discharge Instructions: Abdominal wal pain and redness You will use the following diet at home:: Calorie/Carbohydrate Controlled (specify 1200, 1400, etc), Renal (restricted protein/sodium) Your food should be the consistency of: Regular Your liquids should be the consistency of: Regular/Thin Discharge Activity: Return to Normal Activity Allergies/Adverse Reactions: Allergies latex Allergy (Verified 08/09/18 13:51) Rash prochlorperazine [From Compazine] Allergy (Verified 08/09/18 13:51) Unknown levofloxacin [From Levaquin] Adverse Reaction (Verified 08/09/18 13:51) PT CAN'T REMEMBER PT CAN'T REMEMBER metoclopramide HCl [From Reglan] Adverse Reaction (Verified 08/09/18 13:51) Nausea NSAIDS (Non-Steroidal Anti-Inflamma Adverse Reaction (Verified 08/09/18 13:51) kidney function oxycodone HCl [From Percocet] Adverse Reaction (Verified 08/09/18 13:51) HALLUCINATIONS Medications to take at Discharge Aspirin [Aspirin, Baby] 81 mg PO DAILY@0800 01/26/16 Calcium Acetate [Phoslo Gel Cap] 1,334 mg PO TIDCM 01/26/16 Ergocalciferol [Vitamin D] 50,000 unit PO MO 01/26/16 Insulin Aspart [Novolog Flexpen] 10 units SC TIDCM 01/26/16 Insulin Glargine,Hum.rec.anlog [Lantus] 4 unit SQ QHS 01/09/17 proMETHazine tablet [Phenergan tablet] 25 mg PO Q6H PRN PRN #10 tab 03/06/17 Lisinopril 20 mg PO DAILY 03/29/17 Sodium Bicarbonate 650 mg PO 4X/DAY 03/29/17 Atorvastatin Calcium [Lipitor] 20 mg PO QHS 05/26/18 Carvedilol [Coreg] 25 mg PO BID 05/26/18 Loperamide HCl [Imodium A-D] 2 mg PO TID PRN 05/26/18 Pantoprazole Sodium [Protonix] 20 mg PO BID 05/26/18 Clopidogrel Bisulfate [Plavix] 75 mg PO DAILY 07/01/18 Albuterol Aerosols [Ventolin Aerosols] 2.5 mg INHALATION Q2H PRN PRN #30 vial.neb. 07/03/18 Lidocaine/Prilocaine HCl [Emla Cream W/Tegaderm] 1 applicatio TOPICAL X1 #1 tube 07/03/18 ALPRAZolam [Xanax] 0.5 mg PO PRN PRN 08/09/18 Acetaminophen 650 mg PO PRN PRN 08/09/18 B Complex W-C No.20/Folic Acid [Nephrocaps Softgel] 1 mg PO DAILY 08/09/18 Fluoxetine HCl 40 mg PO DAILY 08/09/18 Hydroxyzine HCl 50 mg PO TUTHSA 08/09/18 Isosorbide Mononitrate [Imdur] 60 mg PO DAILY 08/09/18 Acetaminophen [Tylenol Tablet] 650 mg PO Q6H PRN PRN tablet 08/11/18 Amoxicillin/Potassium Clav [Augmentin 500-125 Tablet] 1 each PO DAILY #5 tablet 08/11/18 Doxycycline 100 mg PO BID #10 capsule 08/11/18 Nystatin Powder [Mycostatin Powder] 1 applic TOPICAL BID #1 bottle 08/11/18 The following prescriptions were given: Amoxicillin/Potassium Clav [Augmentin 500-125 Tablet] 1 each PO DAILY #5 tablet Doxycycline 100 mg PO BID #10 capsule Nystatin Powder [Mycostatin Powder] 1 applic TOPICAL BID #1 bottle Primary Care Physician: Ric Mccrary MD [Primary Care Provider] - Please follow up with your Primary Care Physician in: within 2 weeks of discharge Test Results: Test results from this visit will be discussed in further detail at your follow-up appointment, if applicable. Please Follow Up With: Chey Martinez MD When: In dialysis as scheduled Proposed Discharge Date: 08/11/18 08/11/18 0956 <Electronically signed by eMghann Pressley MD> Date Meghann Pressley MD CC: Ivania Martinez M.D.; Bryant Addison MD; Ric Mccrary MD Signed BEDSIDE GLUCOSE Collected: 08/11/2018 Status: F Source: [place] 7:43 AM [facility] REPOSITORY TYPE CODE TESTS RESULT OUT OF REFERENCE UNITS RANGE LAB L501.080 70-110 mg/dL High BEDSIDE GLU 194 Result Comment: MANAGEMENT OF PATIENT CARE PER NURSING PROTOCOL Performed By: #### L501.080 #### [facility] Point of Care [address] [place] [address] BEDSIDE GLUCOSE Collected: 08/10/2018 Status: F Source: [place] 7:45 PM [facility] REPOSITORY TYPE CODE TESTS RESULT OUT OF REFERENCE UNITS RANGE LAB L501.080 70-110 mg/dL High BEDSIDE GLU 134 Result Comment: MANAGEMENT OF PATIENT CARE PER NURSING PROTOCOL Performed By: #### L501.080 #### [facility] Point of Care [address] [place] [address] BEDSIDE GLUCOSE Collected: 08/10/2018 Status: F Source: [place] 5:16 PM [facility] REPOSITORY TYPE CODE TESTS RESULT OUT OF RANGE REFERENCE UNITS LAB L501.080 70-110 mg/dL Normal BEDSIDE GLU 101 Result Comment: MANAGEMENT OF PATIENT CARE PER NURSING PROTOCOL Performed By: #### L501.080 #### [facility] Point of Care [address] [place] [address] Observed: 08/10/2018 Status: F Source: CIARAN CULTURE, URINE 5:16 PM [facility] REPOSITORY Urine Culture Below infection level. ORGANISM 1: Mixed Gram Positive Organisms Theresa Count 1000-10,000 Performed By: #### M100.0650 #### [facility] [address] [place], [address] BEDSIDE GLUCOSE Collected: 08/10/2018 Status: F Source: [place] 3:50 PM [facility] REPOSITORY TYPE CODE TESTS RESULT OUT OF REFERENCE UNITS RANGE LAB L501.080 70-110 mg/dL High BEDSIDE GLU 119 Result Comment: MANAGEMENT OF PATIENT CARE PER NURSING PROTOCOL Performed By: #### L501.080 #### [facility] Point of Care [address] [place] [address] CONSULTATION Observed: 08/10/2018 Status: F Source: [place] 1:47 PM [facility] REPOSITORY [facility] Medical Records Department [address] [place] [address] Consultation 08/10/18 1343 MR#: [id number] Acct: [id number] Name: KOURTNEY REZA Rep #: [id number] : 1975 42 From: Bryant Addison MD PCP: Ric Mccrary MD Status: ADM IN Y [id number] Problem List (1) Cellulitis Status: Acute Qualifiers: Site of cellulitis: other site Qualified Code(s): L03.818 - Cellulitis of other sites Reason for Consult: cellulitis Consulted by: Dr. Pressley History of Present Illness: The patient is a 42 year old F with ESRD and prior colostomy who presented with 3 days of fever, not feeling well, and redness around colostomy. No drainage, no blood in stool, no recent abx. No cough or SOB, no abd pain. Admitted here on vanc/unasyn, feeling better, redness improved, no further fever. Full ROS performed and neg except as noted above. - Medical History Past Medical History (Chronic Problems): Chronic Problems (Last Reviewed 07/27/18 @ 11:56 by Pricila Olson) CAD (coronary artery disease) (Chronic) Stented coronary artery (Chronic 02/26/18) FFR of LAD 0.82; VIKY of mid LAD with 2.5 X 24 mm Promus Synergy, OM <50% stenosis per Dr. 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) S/P PTCA/VIKY to mid LAD in February 2018 OM #1 noted to be 50%; ESRD (end stage renal disease) on dialysis (Chronic) Decubitus ulcer, stage III (Chronic) Anemia, chronic disease (Chronic) Pilonidal cyst with abscess (Chronic) GABRIEL (obstructive sleep apnea) (Chronic) Depression (Chronic) Anxiety (Chronic) HTN (hypertension) (Chronic) Nonischemic cardiomyopathy (Chronic) EF 45% per echo 07/01/2018 S/P repair of PDA (patent ductus arteriosus) (Chronic) At young age Diabetes mellitus type 1 (Chronic) Hyperlipidemia (Chronic) Obesity (BMI 30.0-34.9) (Chronic) Gastroparesis (Chronic) Allergies/Adverse Reactions: Allergies latex Allergy (Verified 08/09/18 13:51) Rash prochlorperazine [From Compazine] Allergy (Verified 08/09/18 13:51) Unknown levofloxacin [From Levaquin] Adverse Reaction (Verified 08/09/18 13:51) PT CAN'T REMEMBER PT CAN'T REMEMBER metoclopramide HCl [From Reglan] Adverse Reaction (Verified 08/09/18 13:51) Nausea NSAIDS (Non-Steroidal Anti-Inflamma Adverse Reaction (Verified 08/09/18 13:51) kidney function oxycodone HCl [From Percocet] Adverse Reaction (Verified 08/09/18 13:51) HALLUCINATIONS Home Medications: Ambulatory Orders Medication Instructions Recorded Aspirin [Aspirin, Baby] 81 mg PO DAILY@0800 01/26/16 - Social History SMOKING STATUS:: Former smoker Vital Signs Temp Pulse Resp BP Pulse Ox 98.1 F 72 20 H 145/69 H 97 08/10/18 08:19 08/10/18 11:15 08/10/18 08:19 08/10/18 08:19 08/10/18 12:15 Oxygen Flow Rate (L/min) 3 Oxygen Delivery Method Nasal Cannula Weight: 90.67 kg Body Mass Index (BMI) 32.2 Finger Stick Blood Glucose 118 Laboratory Tests Past 24 Hrs WBC 5.4 WBC RBC Hgb Hct MCV MCH MCHC RDW RDW Differential Plt Count MPV Immature Gran % (Auto) Neut % (Auto) - Other Studies Radiology: [] reviewed Other Studies: [] Route of nutrition/ use of supplements: [] Nutritional Intake: [] IV Site: [] Meyer Catheter: [] - Physical Exam General: Alert, Oriented x3, Cooperative, No apparent distress HEENT: Atraumatic, PERRLA, EOMI Neck: Supple, No Nodes Lungs: Clear to auscultation, Normal air movement Cardiovascular: Regular rate, Regular Rhythm, No murmurs Abdomen: Soft, Non Tender, Non-Distended, - - ostomy in place with no surrounding redness Extremities: No edema Skin: No rashes IV Site: Peripheral, without redness Musculoskeletal: No Tenderness to Palpation of Joints or Extremities Neurological: Cranial nerves II-XII grossly intact - Assessment/Plan Antibiotics: [] Assessment/Plan: [] Active and Suspected Problems (Last Reviewed 07/27/18 @ 11:56 by Pricila Olson) Cellulitis (Acute) No fever here, normal wbc. Lactate was elevated. Prior cxs with VRE. Improving on vanc/unasyn. Plan will be for her to go home on 5-7 more days of doxy 100mg bid and augmentin 500mg qday. Will follow, thank you. 08/10/18 1347 <Electronically signed by Bryant Addison MD> Date Bryant Addison MD Cosigner Signature (if applicable): Date CC: Ivania Martinez M.D.; Bryant Addison MD; Ric Mccrary MD Signed CONSULTATION Observed: 08/10/2018 Status: F Source: [place] 11:54 AM [facility] REPOSITORY [facility] Medical Records Department [address] [place] [address] Consultation 08/10/18 1150 MR#: [id number] Acct: [id number] Name: KOURTNEY REZA Rep #: [id number] : 1975 42 From: Nawaf Valdivia MD PCP: Ric Mccrary MD Status: ADM IN Y Location: [facility] [id number] Problem List (1) ESRD (end stage renal disease) on dialysis Status: Chronic Consultation - Renal PCP/ Referring MD: Requesting physician: [] Primary care physician: Ric Mccrary MD - History of Present Illness History of Present Illness: The patient is a 42 year old F past medical history of end- stage renal disease on TTS schedule . Last hemodialysis was yesterday . Patient presented to the hospital this time with lower abdominal pain redness and pain . Patient was admitted for cellulitis treatment . Patient has left upper extremity AV fistula which is functioning well . Patient was started on vancomycin and Unasyn to treat the cellulitis . Patient feels slightly better . No shortness of breath no nausea no vomiting today .. Review of system : 12 system review is negative except for lower abdominal pain and redness which are improving [] - Allergies Allergies: Allergies latex Allergy (Verified 08/09/18 13:51) Rash prochlorperazine [From Compazine] Allergy (Verified 08/09/18 13:51) Unknown levofloxacin [From Levaquin] Adverse Reaction (Verified 08/09/18 13:51) PT CAN'T REMEMBER PT CAN'T REMEMBER metoclopramide HCl [From Reglan] Adverse Reaction (Verified 08/09/18 13:51) Nausea NSAIDS (Non-Steroidal Anti-Inflamma Adverse Reaction (Verified 08/09/18 13:51) kidney function oxycodone HCl [From Percocet] Adverse Reaction (Verified 08/09/18 13:51) HALLUCINATIONS - Current Medications Current Medications: Current Medications Acetaminophen (Tylenol) 650 mg PO Q6H PRN PRN PRN Reason: PAIN Albuterol Sulfate (Ventolin Aerosols) 2.5 mg INHALATION Q2H PRN PRN PRN Reason: dyspnea, wheezing Aspirin (Aspirin, Baby) 81 mg PO DAILY@0800 [facility] Last Admin: 08/10/18 08:31 Dose: 81 mg Atorvastatin Calcium (Lipitor) 20 mg PO QHS [facility] Last Admin: 08/09/18 21:33 Dose: 20 mg Calcium Acetate (Phoslo Gel Cap) 1,334 mg PO TIDCM [facility] Last Admin: 08/10/18 08:31 Dose: 1,334 mg Carvedilol (Coreg) 25 mg PO BID [facility] Last Admin: 08/10/18 08:37 Dose: 25 mg Clopidogrel Bisulfate (Plavix) 75 mg PO DAILY [facility] Last Admin: 08/10/18 08:30 Dose: 75 mg Dextrose (D50w Syringe) 0 gm IV X1 PRN; Protocol PRN Reason: Hypoglycemia Ergocalciferol (Vitamin D) 50,000 unit PO MO [facility] Fluoxetine HCl (Prozac) 40 mg PO DAILY [facility] Last Admin: 08/10/18 08:30 Dose: 40 mg Glucagon () 1 mg IM .X1 PRN PRN Reason: Hypoglycemia Heparin Sodium (Porcine) (Heparin Na) 5,000 unit SC Q8 [facility] Hydroxyzine Pamoate (Vistaril Pamoate Capsule) 50 mg PO TuThSa@1000 [facility] Ampicillin Sodium/Sulbactam Sodium 1,500 mg/ Sodium Chloride 50 mls @ 100 mls/hr IV DAILY [facility] Last Admin: 08/10/18 10:41 Dose: 100 mls/hr Vancomycin IV Pharmacy to Dose (1 ea/ Sodium Chloride) 500 mls @ 250 mls/hr IV X1 PRN; Protocol PRN Reason: Rx to Dose Vancomycin HCl 750 mg/ Sodium (Chloride) 265 mls @ 250 mls/hr IV X1 ONE Stop: 08/11/18 11:03 Insulin Glargine (Lantus (Bkc)) 4 units SC QHS [facility] Last Admin: 08/09/18 21:40 Dose: 4 u Insulin Human Lispro (Humalog Kwikpen (Bkc)) 10 unit SC 0800,1200,1700 [facility] Last Admin: 08/10/18 08:33 Dose: 10 u Insulin Human Lispro (Humalog Kwikpen (Bkc)) 0 unit SQ ACHS [facility]; Protocol Last Admin: 08/10/18 08:33 Dose: 1 units Isosorbide Mononitrate (Imdur) 60 mg PO DAILY [facility] Last Admin: 08/10/18 08:29 Dose: 60 mg Lisinopril (Zestril) 20 mg PO DAILY [facility] Last Admin: 08/10/18 08:31 Dose: 20 mg Loperamide HCl (Imodium) 2 mg PO TID PRN PRN Reason: STOOLING Morphine Sulfate () 1 mg IV Q4H PRN PRN PRN Reason: SEVERE PAIN (6-10/10) Last Admin: 08/10/18 06:07 Dose: 1 mg Multivit/Ca Carb/B Cmplx/FA/Prenat (Nephrocaps, Renaphro) 1 capsule PO DAILY [facility] Last Admin: 08/10/18 08:36 Dose: 1 capsule Nystatin (Mycostatin Powder) 1 applic TOPICAL BID [facility]; Protocol Last Admin: 08/10/18 10:37 Dose: 1 applic Pantoprazole Sodium (Protonix) 20 mg PO BID [facility] Last Admin: 08/10/18 08:32 Dose: 20 mg Promethazine HCl (Phenergan Tablet) 25 mg PO Q6H PRN PRN PRN Reason: NAUSEA Last Admin: 08/09/18 23:59 Dose: 25 mg Sodium Bicarbonate (Sodium Bicarbonate) 650 mg PO 4X/DAY [facility] Last Admin: 08/10/18 08:30 Dose: 650 mg Sodium Chloride () 5 - 15 ml IV UD PRN PRN Reason: SALINE FLUSH Last Admin: 08/10/18 10:43 Dose: 10 ml - Past Medical History Past Medical History (Chronic Problems): Chronic Problems (Last Reviewed 07/27/18 @ 11:56 by Pricila Olson) CAD (coronary artery disease) (Chronic) Stented coronary artery (Chronic 02/26/18) FFR of LAD 0.82; VIKY of mid LAD with 2.5 X 24 mm Promus Synergy, OM <50% stenosis per Dr. 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) S/P PTCA/VIKY to mid LAD in February 2018 OM #1 noted to be 50%; ESRD (end stage renal disease) on dialysis (Chronic) Decubitus ulcer, stage III (Chronic) Anemia, chronic disease (Chronic) Pilonidal cyst with abscess (Chronic) GABRIEL (obstructive sleep apnea) (Chronic) Depression (Chronic) Anxiety (Chronic) HTN (hypertension) (Chronic) Nonischemic cardiomyopathy (Chronic) EF 45% per echo 07/01/2018 S/P repair of PDA (patent ductus arteriosus) (Chronic) At young age Diabetes mellitus type 1 (Chronic) Hyperlipidemia (Chronic) Obesity (BMI 30.0-34.9) (Chronic) Gastroparesis (Chronic) - Past Surgical History Surgical History: appendectomy, hysterectomy - and BSO, - - c-sections, L breast I+D for abscess, fistula placement LUE, L ankle surgery, appendectomy, PDA repair. Excision pilonidal cyst ulcer about 4 years ago. Colostomy placed due to rectal abscess/wound, patent ductus repair, drug-eluting stent placement left anterior descending coronary artery February 2018. - Social History Smoking Status: Current some day smoker Alcohol: None Drugs: None - Family History Maternal History Items: Cancer, COPD, Diabetes, Hypertension, Renal Disease, Stroke Paternal History Items: Diabetes Sibling History Items: Cancer, Diabetes Patient Problems: Active and Suspected Problems (Last Reviewed 07/27/18 @ 11:56 by Pricila Olson) Cellulitis (Acute) - Physical Exam General: Alert, Oriented x3 HEENT: Atraumatic, PERRLA Oral: Moist Mucosa Neck: Supple, No JVD Lungs: Clear to auscultation, Normal air movement, No rhonchi, No wheeze Cardiovascular: Regular rate, Regular Rhythm, Normal S1, Normal S2 Abdomen: Bowel Sounds Present, Soft Extremities: No clubbing, No cyanosis, Edema - Trace edema of lower extremities Musculoskeletal: No Tenderness to Palpation of Joints or Extremities Lymphatic: No Cervical, Supraclavicular, or Inguinal Adenopathy Neurological: Cranial nerves II-XII grossly intact, Neuro grossly intact Psych/Mental Status: Normal Affect Vital Signs Temp Pulse Resp BP Pulse Ox 98.1 F 72 20 H 145/69 H 98 08/10/18 08:19 08/10/18 11:15 08/10/18 08:19 08/10/18 08:19 08/10/18 08:19 Oxygen Flow Rate (L/min) 3 Oxygen Delivery Method Nasal Cannula Weight: 90.5 kg Body Mass Index (BMI) 32.2 Finger Stick Blood Glucose 118 Intake and Output for Last 24 Hours Intake Total 1200 / 1200 900 / 900 Output Total 100 / 100 Balance 1200 / 1200 800 / 800 Laboratory Tests Past 24 Hrs WBC 5.4 WBC RBC Hgb Hct MCV MCH MCHC RDW RDW Differential Plt Count MPV Immature Gran % (Auto) Neut % (Auto) POC Glucose POC Glucose 158 H 122 H 174 H Assessment/Plan All Active Problems (Last Reviewed 07/27/18 @ 11:56 by Pricila Olson) Cellulitis (Acute) Nausea AND vomiting (Resolved) Migraine (Resolved) Metabolic encephalopathy (Resolved) Chest pain (Acute) Tooth abscess (Resolved) Intractable nausea and vomiting (Resolved) Pneumonia (Resolved) Pulmonary edema (Resolved) Hyperkalemia (Resolved) Atypical chest pain (Resolved) Acute hypoxic respiratory failure (Resolved) Pulmonary edema (Resolved) Clostridium difficile enterocolitis (Resolved) Necrotizing myositis (Resolved) Dysmenorrhea (Resolved) Hx of necrotizing fascIItis (Resolved) Iron deficiency anemia due to chronic blood loss (Resolved) Systolic congestive heart failure (Resolved) 1-end-stage renal disease patient. On TTS hemodialysis schedule. Patient goes to [facility]. Last hemodialysis session was August 09. I will arrange for hemodialysis tomorrow. Hemodialysis access is left upper extremity AV fistula. 2-anemia: Continue ESTUARDO as per the chronic order. 3-BMD. Continue calcium acetate with meals. Check phosphorus in a.m.. 4-hypertension. Blood pressure is well controlled. I will make no changes in blood pressure medications today. Ultrafiltration 2 EDW with hemodialysis. 5-cellulitis of the lower abdominal wall. Antibiotics as per the primary service. Thank you for the consult. Renal team will continue to follow. 08/10/18 1154 <Electronically signed by Nawaf Valdivia MD> Date Nawaf Valdivia MD Cosigner Signature (if applicable): Date CC: Ivania Martinez M.D.; Bryant Addison MD; Ric Mccrary MD Signed BEDSIDE GLUCOSE Collected: 08/10/2018 Status: F Source: [place] 11:42 AM [facility] REPOSITORY TYPE CODE TESTS RESULT OUT OF REFERENCE UNITS RANGE LAB L501.080 70-110 mg/dL High BEDSIDE GLU 126 Result Comment: MANAGEMENT OF PATIENT CARE PER NURSING PROTOCOL Performed By: #### L501.080 #### [facility] Point of Care [address] [place] [address] BEDSIDE GLUCOSE Collected: 08/10/2018 Status: F Source: [place] 8:25 AM [facility] REPOSITORY TYPE CODE TESTS RESULT OUT OF REFERENCE UNITS RANGE LAB L501.080 70-110 mg/dL High BEDSIDE GLU 158 Result Comment: MANAGEMENT OF PATIENT CARE PER NURSING PROTOCOL Performed By: #### L501.080 #### [facility] Point of Care [address] [place] [address] BASIC METABOLIC Collected: 08/10/2018 Status: F Source: [place] [facility]BMP[facility] TYPE CODE TESTS RESULT OUT OF RANGE REFERENCE UNITS LAB L501.0100 74-106 mg/dL High GLU 195 Result Comment: Fasting Glucose result greater than or equal to 126 mg/dL suggests DIABETES MELLITUS per A.D.A. criteria. Please note revised GLUCOSE reference range effective 2017. LAB L501.1000 7-18 mg/dL High BUN 46 LAB L501.1100 0.55-1.02 mg/dL High CREAT,SERUM 7.04 Result Comment: The validity of the calculated GFR AND GFRAA in patients over 70 years has not been determined. Clinical correlation is essential. LAB L501.1110 >60 mL/min Low EST GFR 7 Result Comment: Non- GFR Calc LAB L501.1115 >60 mL/min Low EST GFR - AA 8 Result Comment: GFR Calc LAB L501.1255 ml/min Normal Estimated CRCL 9.55 LAB L501.1300 10-20 RATIO Low BUN/CRE 6.5 LAB L501.2200 8.5-10. mg/dL Low 1 CA 8.3 LAB L501.5300 136-145 mmol/L Normal NA 138 LAB L501.5600 3.5-5.1 mmol/L Normal K 4.8 Result Comment: Slight Hemolysis, Result may be falsely increased. LAB L501.5900 98-107 mmol/L Normal CL 99 LAB L501.6100 21.0-32.0 mmol/L Normal CO2 28.0 LAB L501.6200 5-15 Normal GAP 11 Performed By: #### L500.2500 #### [facility] [address] [place], [place], [address] CBC-COMPLETE BLOOD CNT Collected: 08/10/2018 Status: F Source: [place] NO DIFF 5:14 AM [facility] REPOSITORY TYPE CODE TESTS RESULT OUT OF RANGE REFERENCE UNITS LAB L100.1000 4.4-11.0 K/mm3 Normal WBC 5.4 LAB L100.1200 4.2-5.4 M/mm3 Low RBC 2.95 LAB L100.1300 12.0-15.0 g/dl Low HGB 9.2 LAB L100.1400 37-47 % Low HCT 31.7 LAB L100.1500 81-99 fL High MCV 107.5 LAB L100.1600 27.0-32.0 pg Normal MCH 31.2 LAB L100.1700 32-36 g/gl Low MCHC 29.0 LAB L100.1810 11.6-14.6 % High RDW CV 17.4 LAB L100.1820 35.1-43.9 fl High RDW SD 65.2 LAB L100.1900 150-450 K/mm3 Low PLT 138 LAB L100.2000 6.2-12.0 fl Normal MPV 9.2 Performed By: #### L100.0500, L100.4500 #### [facility] [address] [place], [address] DIFFERENTIAL COMMENT Collected: 08/10/2018 Status: F Source: [place] 5:14 AM [facility] REPOSITORY TYPE CODE TESTS RESULT OUT OF RANGE REFERENCE UNITS LAB L100.4500 Normal SMEAR COMMENT SCAN Result Comment: ANISOCYTOSIS 1+ HYPOCHROMIA 1+ MICROCYTOSIS 1+ POLYCHROMASIA 1+ Performed By: #### L100.0500, L100.4500 #### [facility] [address] [place], [address] URINALYSIS, COMPLETE Collected: 08/09/2018 Status: F Source: [place] 10:05 PM [facility] REPOSITORY Order Comment: Order Date: 08/09/18 How was Urine Obtained? CLEAN CATCH TYPE CODE TESTS RESULT OUT OF RANGE REFERENCE UNITS LAB L400.3000 Yellow COLOR Normal Yellow LAB L400.3050 Clear Normal CLARITY Clear LAB L400.3200 Normal mg/dl High GLUCOSE, UR 250 LAB L400.3300 Negative mg/dL Normal BILIRUBIN URINE Negative LAB L400.3400 Negative mg/dl Normal KETONE UR Negative LAB L400.3465 1.002-1.030 Normal SP.GR. DIPSTX 1.010 LAB L400.3550 5.0 - 8.0 pH UR Normal 7.0 LAB L400.3600 Negative mg/dl High PROT DIPSTX 500 LAB L400.3700 Normal mg/dl Normal UROBILI Normal LAB L400.3750 Negative Normal NITRITE UR Negative LAB L400.3780 Negative /ul High 25 OCCULT BLOOD-UR LAB L400.3800 Negative /ul High LEUK ESTERASE 100 LAB L400.4050 0-5 /hpf WBC Normal 25-50 SEEN LAB L400.4100 0-5 /hpf Normal RBC-UA 0-5 SEEN LAB L400.4150 5-10 /hpf SQUAM Normal EPI 0-5 SEEN LAB L400.4300 None Seen /hpf 0 Normal BACTERIA SEEN LAB L400.4350 <or=2+ /hpf 0 Normal MUCUS, URINE SEEN LAB L400.4400 0-5 /lpf Normal HYALINE CAST 0-5 SEEN LAB L400.4900 1+ Normal AMORPHOUS PHOS Performed By: #### L400.0001 #### [facility] [address] [place], [address] BEDSIDE GLUCOSE Collected: 08/09/2018 Status: F Source: [place] 9:36 PM [facility] REPOSITORY TYPE CODE TESTS RESULT OUT OF REFERENCE UNITS RANGE LAB L501.080 70-110 mg/dL High BEDSIDE GLU 122 Result Comment: MANAGEMENT OF PATIENT CARE PER NURSING PROTOCOL Performed By: #### L501.080 #### [facility] Point of Care [address] [place] [address] LACTIC ACID Collected: 08/09/2018 Status: F Source: [place] 6:50 PM [facility] REPOSITORY TYPE CODE TESTS RESULT OUT OF RANGE REFERENCE UNITS LAB L503.6005 0.4-2.0 mmol/L Normal LACTIC ACID 1.7 Performed By: #### L503.6005 #### [facility] [address] [place], [address] BEDSIDE GLUCOSE Collected: 08/09/2018 Status: F Source: [place] 5:03 PM [facility] REPOSITORY TYPE CODE TESTS RESULT OUT OF REFERENCE UNITS RANGE LAB L501.080 70-110 mg/dL High BEDSIDE GLU 174 Result Comment: MANAGEMENT OF PATIENT CARE PER NURSING PROTOCOL Performed By: #### L501.080 #### [facility] Point of Care [address] [place] [address] HISTORY AND PHYSICAL Observed: 08/09/2018 Status: F Source: [place] EXAM 4:22 PM [facility] REPOSITORY [facility] Medical Records Department [address] [place] [address] History and Physical 08/09/18 1605 MR#: [id number] Acct: [id number] Name: KOURTNEY REZA Rep #: [id number] : 1975 42 From: Meghann Pressley MD PCP: Ric Mccrary MD Status: ADM IN Y Location: [place] [address] Problem List (1) Cellulitis Status: Acute Qualifiers: Site of cellulitis: other site Qualified Code(s): L03.818 - Cellulitis of other sites (2) CAD (coronary artery disease) Status: Chronic Qualifiers: Coronary Disease-Associated Artery/Lesion type: ute artery [place] vs. transplanted heart: ute heart Associated angina: without angina Qualified Code(s): I25.10 - Atherosclerotic heart disease of ute coronary artery without angina pectoris (3) ESRD (end stage renal disease) on dialysis Status: Chronic (4) GABRIEL (obstructive sleep apnea) Status: Chronic (5) Depression Status: Chronic Qualifiers: Depression Type: unspecified Qualified Code(s): F32.9 - Major depressive disorder, single episode, unspecified (6) Anxiety Status: Chronic (7) HTN (hypertension) Status: Chronic Qualifiers: Hypertension type: essential hypertension Qualified Code(s): I10 - Essential (primary) hypertension (8) Nonischemic cardiomyopathy Status: Chronic Comment: EF 45% per echo 07/01/2018 History of Present Illness Date of Admission: 08/09/18 Chief Complaint: Abdominal wall redness and pain - 2 days The patient is a 42 year old F with past medical history of ESRD on hemodialysis (), history of necrotizing fasciitis in 2008 after section status post colostomy, history of nonischemic cardiomyopathy, comes in with complaints of anterior abdominal wall redness and pain ongoing for 2 days. Patient admits also to fever and chills. Noticed redness of the anterior abdominal wall. No leakage of contents from the colostomy bag. No increased diarrhea or constipation. Denied any dysuria or frequency or chest pain or cough. Vitals in the ED temperature of 90 7.8F, heart rate 89, respiratory rate 18, PO2 was 96% on room air, blood pressure 125/98. Making blood work showed RBC count of 4.9, hemoglobin 9.4, platelet count 125, BMP was significant for BUN of 35, creatinine 5.91, lactic acid 2.7. Patient admits to having dialysis yesterday, but did not complete dialysis because of pain. Past Medical History Past Medical History (Chronic Problems): Chronic Problems (Last Reviewed 07/27/18 @ 11:56 by Pricila Olson) CAD (coronary artery disease) (Chronic) Stented coronary artery (Chronic 02/26/18) FFR of LAD 0.82; VIKY of mid LAD with 2.5 X 24 mm Promus Synergy, OM <50% stenosis per Dr. 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) S/P PTCA/VIKY to mid LAD in February 2018 OM #1 noted to be 50%; ESRD (end stage renal disease) on dialysis (Chronic) Decubitus ulcer, stage III (Chronic) Anemia, chronic disease (Chronic) Pilonidal cyst with abscess (Chronic) GABRIEL (obstructive sleep apnea) (Chronic) Depression (Chronic) Anxiety (Chronic) HTN (hypertension) (Chronic) Nonischemic cardiomyopathy (Chronic) EF 45% per echo 07/01/2018 S/P repair of PDA (patent ductus arteriosus) (Chronic) At young age Diabetes mellitus type 1 (Chronic) Hyperlipidemia (Chronic) Obesity (BMI 30.0-34.9) (Chronic) Gastroparesis (Chronic) Medical History: Medical History (Last Reviewed 07/27/18 @ 11:56 by Pricila Olson) 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) I25.10 S/P PTCA/VIKY to mid LAD in February 2018 OM #1 noted to be 50%; ESRD (end stage renal disease) on dialysis (Chronic) N18.6, Z99.2 Decubitus ulcer, stage III (Chronic) L89.93 Anemia, chronic disease (Chronic) D63.8 Pilonidal cyst with abscess (Chronic) L05.01 GABRIEL (obstructive sleep apnea) (Chronic) G47.33 HTN (hypertension) (Chronic) I10 Nonischemic cardiomyopathy (Chronic) I42.8 EF 45% per echo 07/01/2018 Diabetes mellitus type 1 (Chronic) Hyperlipidemia (Chronic) E78.5 Obesity (BMI 30.0-34.9) (Chronic) E66.9 Gastroparesis (Chronic) K31.84 Allergies latex Allergy (Verified 08/09/18 13:51) Rash prochlorperazine [From Compazine] Allergy (Verified 08/09/18 13:51) Unknown levofloxacin [From Levaquin] Adverse Reaction (Verified 08/09/18 13:51) PT CAN'T REMEMBER PT CAN'T REMEMBER metoclopramide HCl [From Reglan] Adverse Reaction (Verified 08/09/18 13:51) Nausea NSAIDS (Non-Steroidal Anti-Inflamma Adverse Reaction (Verified 08/09/18 13:51) kidney function oxycodone HCl [From Percocet] Adverse Reaction (Verified 08/09/18 13:51) HALLUCINATIONS Home Medications: Ambulatory Orders Medication Instructions Recorded Aspirin [Aspirin, Baby] 81 mg PO DAILY@0800 01/26/16 Surgical History: Surgical History (Last Reviewed 07/27/18 @ 11:56 by Pricila Olson) Stented coronary artery (Chronic) Onset Date: 02/26/18 Z95.5 FFR of LAD 0.82; VIKY of mid LAD with 2.5 X 24 mm Promus Synergy, OM <50% stenosis per Dr. Underwood @ [facility] S/P repair of PDA (patent ductus arteriosus) (Chronic) Z98.890, Z87.74 At young age Surgical History: appendectomy, hysterectomy - and BSO, - - c-sections, L breast I+D for abscess, fistula placement LUE, L ankle surgery, appendectomy, PDA repair. Excision pilonidal cyst ulcer about 4 years ago. Colostomy placed due to rectal abscess/wound, patent ductus repair, drug-eluting stent placement left anterior descending coronary artery February 2018. Lives: With Family Smoking Status: Current some day smoker Tobacco Use: Cigarettes Alcohol: None Drugs: None - *Family History Maternal History Items: Cancer, COPD, Diabetes, Hypertension, Renal Disease, Stroke Paternal History Items: Diabetes Sibling History Items: Cancer, Diabetes Review of Systems Constitutional: Reports: Anorexia, Chills, Fever, Malaise, Weakness. Denies: Weight Change Eyes: Denies: Blurred vision, Cataracts, Conjunctivae Inflammation, Double vision, Pain, Redness, Vision Change HEENT: Denies: Difficulty Hearing, Difficulty Swallowing, Head Aches, Hearing Changes, Nasal bleeding, Nasal Congestion, Sinus Congestion, Sinus Drainage, Sore Throat Cardiovascular: Denies: Chest Pain, Claudication, Chest Pressure, Chest Tightness, Orthopnea, Palpitations, Paroxysmal Noc. Dyspnea Respiratory: Denies: Cough, Hemoptysis, Pleuritic Pain, Shortness of breath at rest, Shortness of breath upon exertion, Sputum production, Wheezing Gastrointestinal: Reports: Abdominal Pain. Denies: Constipation, Diarrhea, Dyspepsia, Hematochezia, Nausea, Vomiting Genitourinary: Denies: Dysuria, Frequency Gynecological: Denies: Breast symptoms, Vaginal discharge Musculoskeletal: Denies: Joint Pain, Joint stiffness, Joint swelling, Joint Tenderness Skin: Denies: Pruritis, Rash, Wounds Neurological: Denies: Difficulty swallowing, Focal weakness, Numbness, Tingling Psychiatric: Denies: Anxiety, Depression, Homicidal Ideations, Suicidal Ideations Hematologic/ Lymphatic: Denies: Easy Bruising, Easy Bleeding VTE Information - Inpt Only VTE Present on Admission: No VTE Pharm Prophylaxis ordered?: Yes Patient Problems: Active and Suspected Problems (Last Reviewed 07/27/18 @ 11:56 by Pricila Olson) Cellulitis (Acute) - Physical Exam General: Alert, Oriented x3, Cooperative, No apparent distress, - - on 3L oxygen HEENT: Atraumatic, PERRLA, EOMI, Normocephalic Oral: Moist Mucosa Neck: Supple, No JVD, Negative Carotid Bruits Lungs: Clear to auscultation, Normal air movement Cardiovascular: Regular rate, Regular Rhythm, Normal S1, Normal S2, No murmurs Abdomen: Bowel Sounds Present, Soft, No Hepato-splenomegaly, - - Erythema of the anterior abdominal wall with redness from the upper abdomen to the suprapubic region, slight purulent discharge from the pannus and previous suprapubic catheter site. Extremities: No edema Skin: No rashes, No breakdown Musculoskeletal: No Tenderness to Palpation of Joints or Extremities Lymphatic: No Cervical, Supraclavicular, or Inguinal Adenopathy Neurological: Cranial nerves II-XII grossly intact, Neuro grossly intact Psych/Mental Status: Normal Affect, Appropriate Vital Signs Temp Pulse Resp BP Pulse Ox 98.2 F 89 20 H 129/93 H 90 08/09/18 15:05 08/09/18 15:05 08/09/18 15:05 08/09/18 13:50 08/09/18 15:05 Oxygen Delivery Method Room Air Weight: 92.2 kg Body Mass Index (BMI) 32.8 Finger Stick Blood Glucose 118 Laboratory Tests Past 24 Hrs Assessment/Plan All Active Problems (Last Reviewed 07/27/18 @ 11:56 by Pricila Olson) Cellulitis (Acute) Nausea AND vomiting (Resolved) Migraine (Resolved) Metabolic encephalopathy (Resolved) Chest pain (Acute) Tooth abscess (Resolved) Intractable nausea and vomiting (Resolved) Pneumonia (Resolved) Pulmonary edema (Resolved) Hyperkalemia (Resolved) Atypical chest pain (Resolved) Acute hypoxic respiratory failure (Resolved) Pulmonary edema (Resolved) Clostridium difficile enterocolitis (Resolved) Necrotizing myositis (Resolved) Dysmenorrhea (Resolved) Hx of necrotizing fascIItis (Resolved) Iron deficiency anemia due to chronic blood loss (Resolved) Systolic congestive heart failure (Resolved) 42 year old F with past medical history of ESRD on hemodialysis (), history of necrotizing fasciitis in 2008 after section status post colostomy, history of nonischemic cardiomyopathy, comes in with complaints of anterior abdominal wall redness and pain ongoing for 2 days. 1. Cellulitis of the anterior abdominal wall, no signs of sepsis, no SIRS criteria, history of necrotizing fasciitis Plan: Admit to [facility], continue on IV Unasyn and vancomycin started in the emergency department, ID consult, pain control, IV hydration 2. Elevated lactic acid, likely related to cellulitis versus dehydration but no signs of sepsis per criteria, will trend 3. ESRD on hemodialysis, followed Monday, Monday 4. Chronic systolic EF, nonischemic cardiomyopathy, previous workup has been negative, history of CAD status post stent 5. 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 Hypertension, controlled, continue home regimen 7. Hyperlipidemia, on statin 8. Anxiety/depression, continue home regimen 9. Nicotine dependence, advised to quit, nicotine replacement offered 10. Obesity, BMI 32.8, diet and exercise is recommended 11. GERD, on PPI 12. DVT PPx- Heparin SC Code Visit Inpatient E AND M: 78681 Init Hosp L3 08/09/18 8926 <Electronically signed by Meghann Pressley MD> Date Meghann Pressley MD Cosigner Signature: Date (if applicable) CC: Meghann Pressley MD; Ric Mccrary MD Signed EMERGENCY DEPARTMENT Observed: 08/09/2018 Status: F Source: [place] SUMMARY 3:36 PM [facility] REPOSITORY [facility] Medical Records Department [address] [place] [address] Emergency Department Summary 08/09/18 1534 MR#: [id number] Acct: [id number] Name: KOURTNEY REZA Rep #: [id number] : 1975 42 From: Estrella Solano DO PCP: Ric Mccrary MD Status: REG ER - ER Visit Summary Date of Service: 08/09/18 Chief Complaint: [Redness and swelling to abdomen] History of Present Illness: The patient is a 42 F [presents the emergency department with redness and swelling to her abdomen that she noticed yesterday. Patient had a fever up to 103 at home. Patient complained of nausea and she vomited a couple times. Patient states she is having normal output from her colostomy. Patient has colostomy due to need for diversion away from a chronic wound. Patient has history of necrotizing myositis as well as end-stage renal disease. Patient had dialysis today but was only able to sit for half the session.] Physical Examination: [HEENT-PERRLA, EOMI. Cranial nerves II through XII grossly intact. TMs clear. Mucous membranes moist. No adenopathy. Cardiovascular-regular rate and rhythm without murmur or ectopy Lungs-clear to auscultation, chest wall stable without crepitus or subcu emphysema Abdomen-normoactive bowel sounds, soft. Patient has diffuse tenderness to palpation. There is no rebound, rigidity, or perineal signs. The abdominal wall is diffusely erythematous and cellulitic. Patient has warmth to the skin noted. Extremities-intact 4, normal range of motion, normal pulses, atraumatic] Test Results: [Showed a white count of 4.9, hemoglobin 9.4, hematocrit 32, platelets 125. Chemistries unremarkable. BUN was 35 and creatinine 5.91. Lactate was elevated 2.7.] CBC with differential obtained Emergency Department Course and Treatment: [Patient had blood cultures ordered and she was started on Unasyn and vancomycin.] Patient was given morphine and Zofran for pain. Treatment Plan: [Admit for IV antibiotics and pain control.] Disposition: [Admit] Impression: [Abdominal wall cellulitis] This note was generated with [employer] dictation software. It may contain incorrect words, spelling, and punctuation that were not noted in review of the chart prior to signing ED Disposition - Plan for ED Patient: Chief Complaint: Cellulitis Referrals: Ric Mccrary MD [Primary Care Provider] - What to do if you have Problems For any increased pain, shortness of breath, bleeding, nausea or vomiting, chest pain, or any unexpected problems, contact your Primary Care Provider. Call [facility] ([phone]) or report to the closest Emergency Room. Call 911 if necessary. 08/09/18 1536 <Electronically signed by Estrella Solano DO> Date Estrella Solano DO Cosigner Signature (If Indicated): Date CC: Ric Mccrary MD Observed: 08/09/2018 Status: F Source: [place] CULTURE, BLOOD (WB) 2:30 PM [facility] REPOSITORY BC No growth in 5 days. Performed By: #### M200.1000 #### [facility] [address] [place], [address] BASIC METABOLIC Collected: 08/09/2018 Status: F Source: [place] PROFILE (BMP) 2:05 PM [facility] REPOSITORY TYPE CODE TESTS RESULT OUT OF RANGE REFERENCE UNITS LAB L501.0100 74-106 mg/dL High GLU 258 Result Comment: Glucose result greater than or equal to 200 mg/dL suggests DIABETES MELLITUS per A.D.A. criteria. Please note revised GLUCOSE reference range effective 2017. LAB L501.1000 7-18 mg/dL High BUN 35 LAB L501.1100 0.55-1.02 mg/dL High CREAT,SERUM 5.91 Result Comment: The validity of the calculated GFR AND GFRAA in patients over 70 years has not been determined. Clinical correlation is essential. LAB L501.1110 >60 mL/min Low EST GFR 8 Result Comment: Non- GFR Calc LAB L501.1115 >60 mL/min Low EST GFR - AA 10 Result Comment: GFR Calc LAB L501.1255 ml/min Normal Estimated CRCL 11.37 LAB L501.1300 10-20 RATIO Low BUN/CRE 5.9 LAB L501.2200 8.5-10 mg/dL Low .1 CA 8.2 LAB L501.5300 136-14 mmol/L Normal 5 NA 139 LAB L501.5600 3.5-5. mmol/L Normal 1 K 3.7 LAB L501.5900 98-107 mmol/L Normal CL 99 LAB L501.6100 21.0-3 mmol/L Normal 2.0 CO2 30.0 LAB L501.6200 5-15 Normal GAP 10 Performed By: #### L500.2500 #### [facility] [address] [place], [place], [address] CBC W/DIFF, AUTOMATED Collected: 08/09/2018 Status: F Source: [place] 2:05 PM [facility] REPOSITORY TYPE CODE TESTS RESULT OUT OF RANGE REFERENCE UNITS LAB L100.1000 4.4-11.0 K/mm3 Normal WBC 4.9 LAB L100.1200 4.2-5.4 M/mm3 Low RBC 3.06 LAB L100.1300 12.0-15.0 g/dl Low HGB 9.4 LAB L100.1400 37-47 % Low HCT 32.0 LAB L100.1500 81-99 fL High MCV 104.6 LAB L100.1600 27.0-32.0 pg Normal MCH 30.7 LAB L100.1700 32-36 g/gl Low MCHC 29.4 LAB L100.1810 11.6-14.6 % High RDW CV 17.9 LAB L100.1820 35.1-43.9 fl High RDW SD 67.2 LAB L100.1900 150-450 K/mm3 Low PLT 125 LAB L100.2000 6.2-12.0 fl Normal MPV 9.3 LAB L100.2100 47-70 % High NEUT% 77.7 LAB L100.2200 19-41 % Low LY% 17.0 LAB L100.2300 0-10 % Normal MONO% 3.9 LAB L100.2400 0-5 % Normal EO% 0.8 LAB L100.2500 0-1 % Normal BASO% 0.2 LAB L100.2550 0.0-0.9 % Normal IM GRAN % 0.400 Result Comment: IG% - Immature Granulocytes (promyelocytes, myelocytes and metamyelocytes) > 1% indicates that a LEFT SHIFT is Present. LAB L100.2620 2.0-7.7 X10 3/uL Normal Absolute Neut 3.8 LAB L100.2720 0.83-4.51 X10 3/ul Normal Absolute Lymph 0.83 LAB L100.4500 Normal SMEAR COMMENT COMMENT Result Comment: SLIDE SCANNED - 1+ ANISO. Performed By: #### L100.0100 #### [facility] [facility] [place], [place], [id number] LACTIC ACID Collected: 08/09/2018 Status: F Source: [place] 2:05 PM [facility] REPOSITORY Order Comment: Yes/No query for Sepsis Lactate Rule Y TYPE CODE TESTS RESULT OUT OF REFERENCE UNITS RANGE LAB L503.6005 0.4-2.0 mmol/L High LACTIC ACID 2.7 Result Comment: Critical Result(s) Called at: 14:59:56 08/09/2018 by: Chantelle Salazar to Mariaz Performed By: #### L503.6005 #### [facility] [address] [place], [place], [id number] Observed: 08/09/2018 Status: F Source: [place] CULTURE, BLOOD (WB) 2:05 PM [facility] REPOSITORY BC No growth in 5 days. Performed By: #### M200.1000 #### [facility] [address] [place], [place], [id number] DISCHARGE INSTRUCTION Observed: 07/18/2018 Status: F Source: [place] 11:25 PM [facility] REPOSITORY [facility] Medical Records Department [address] [place] [address] Discharge Instruction 07/18/18 2254 MR#: [id number] Acct: [id number] Name: KOURTNEY REZA Rep #: [id number] : 1975 42 From: Matt Andersen MD PCP: Ric Mccrary MD Status: DEP ER ED Disposition - Plan for ED Patient: Disposition: Home or Assisted Living Chief Complaint: Cough Instructions: ED Upper Resp Infec No Abx Tx Referrals: Ric Mccrary MD [Primary Care Provider] - 1 Week if not improving Additional Instructions: Plenty of fluids and rest. Zofran as needed for nausea. Follow-up with your doctor if not improving. Most likely this is a viral illness and will improve. No antibiotics are needed at this time. What to do if you have Problems For any increased pain, shortness of breath, bleeding, nausea or vomiting, chest pain, or any unexpected problems, contact your Primary Care Provider. Call [facility] ([phone]) or report to the closest Emergency Room. Call 911 if necessary. 07/18/18 6613 <Electronically signed by Matt Andersen MD> Date Matt Andersen MD Cosigner Signature (If Indicated): Date CC: Ric Mccrary MD EMERGENCY DEPARTMENT Observed: 07/18/2018 Status: F Source: [place] SUMMARY 11:25 PM [facility] REPOSITORY [facility] Medical Records Department [address] [place] [address] Emergency Department Summary 07/18/182040 MR#: [id number] Acct: [id number] Name: KOURTNEY REZA Rep #: [id number] : 1975 42 From: Matt Andersen MD PCP: Ric Mccrary MD Status: DEP ER - ER Visit Summary Date of Service: 07/18/18 Chief Complaint: Cough History of Present Illness: The patient is a 42 F history of noncemented diabetes, [place], CHF, end-stage renal disease dialysis her last dialysis was on Monday due to the holidays she normally is dialyzed Monday, and Monday. She has one cardiac stent. Patient states she is having a cough of yellowish sputum. No fever but positive chills. She is also had nausea, vomiting and diarrhea. She has a colostomy and states is been pure liquid. Physical Examination: Vital signs stable. Afebrile. Pulse ox 97% on room air no hypoxia. No distress. H EENT exam mildly dry mucous membranes. Neck nontender no lymphadenopathy. Lungs dry hacking cough but no rales, rhonchi or wheezing. Heart regular rate and rhythm rate about 80 no murmur. Abdomen soft nontender normal bowel sounds no peritoneal signs. Colostomy bag with gas and fluid. No melena. Extremities moves all 4. Neurologically she is awake and alert with no focal motor deficits. Test Results: Chest x-ray shows vascular congestion but no obvious pneumonia read both by myself and the radiologist. CBC shows a normal white count of 6.8. Hemoglobin of 9 which is the patient's baseline chronic anemia. Chemistries unremarkable creatinine 7.1 she has a history of end-stage renal disease dialysis. Glucose 177 normal gap. Emergency Department Course and Treatment: Treated with IV Zofran. P.o. fluids. Multiple repeat exams patient is doing well. She was treated with p.o. Tylenol and one [place]. I went over all test results with her and family and are comfortable with her being discharged. Treatment Plan: Symptomatic treatment. Follow-up with her primary care physician Dr. Mccrary Disposition: Discharge Impression: Acute viral bronchitis Nausea and vomiting Chronic End-stage renal disease dialysis History of insulin-dependent diabetes This note was generated with [employer] software. It may contain incorrect words, spelling, and punctuation that were not noted in review of the chart prior to signing ED Disposition - Plan for ED Patient: Chief Complaint: Cough Referrals: Ric Mccrary MD [Primary Care Provider] - What to do if you have Problems For any increased pain, shortness of breath, bleeding, nausea or vomiting, chest pain, or any unexpected problems, contact your Primary Care Provider. Call [facility] ([phone]) or report to the closest Emergency Room. Call 911 if necessary. 07/18/18 9120 <Electronically signed by Matt Andersen MD> Date Matt Andersen MD Cosigner Signature (If Indicated): Date CC: Ric Mccrary MD CBC W/DIFF, AUTOMATED Collected: 07/18/2018 Status: F Source: [place] 9:00 PM [facility] REPOSITORY TYPE CODE TESTS RESULT OUT OF RANGE REFERENCE UNITS LAB L100.1000 4.4-11.0 K/mm3 Normal WBC 6.8 LAB L100.1200 4.2-5.4 M/mm3 Low RBC 3.02 LAB L100.1300 12.0-15.0 g/dl Low HGB 9.1 LAB L100.1400 37-47 % Low HCT 30.1 LAB L100.1500 81-99 fL High MCV 99.7 LAB L100.1600 27.0-32.0 pg Normal MCH 30.1 LAB L100.1700 32-36 g/gl Low MCHC 30.2 LAB L100.1810 11.6-14.6 % High RDW CV 17.7 LAB L100.1820 35.1-43.9 fl High RDW SD 64.3 LAB L100.1900 150-450 K/mm3 Low PLT 136 LAB L100.2000 6.2-12.0 fl Normal MPV 8.6 LAB L100.2100 47-70 % High NEUT% 76.9 LAB L100.2200 19-41 % Low LY% 14.5 LAB L100.2300 0-10 % Normal MONO% 4.3 LAB L100.2400 0-5 % Normal EO% 4.0 LAB L100.2500 0-1 % Normal BASO% 0.3 LAB L100.2550 0.0-0.9 % Normal IM GRAN % 0.000 Result Comment: IG% - Immature Granulocytes (promyelocytes, myelocytes and metamyelocytes) > 1% indicates that a LEFT SHIFT is Present. LAB L100.2620 2.0-7.7 X10 3/uL Normal Absolute Neut 5.2 LAB L100.2720 0.83-4.51 X10 3/ul Normal Absolute Lymph 0.98 Performed By: #### L100.0100 #### [facility] [address] [place], [address] BASIC METABOLIC Collected: 07/18/2018 Status: F Source: [place] PROFILE (BMP) 9:00 PM [facility] REPOSITORY TYPE CODE TESTS RESULT OUT OF RANGE REFERENCE UNITS LAB L501.0100 74-106 mg/dL High GLU 177 Result Comment: Fasting Glucose result greater than or equal to 126 mg/dL suggests DIABETES MELLITUS per A.D.A. criteria. Please note revised GLUCOSE reference range effective 2017. LAB L501.1000 7-18 mg/dL High BUN 64 LAB L501.1100 0.55-1.02 mg/dL High CREAT,SERUM 7.12 Result Comment: The validity of the calculated GFR AND GFRAA in patients over 70 years has not been determined. Clinical correlation is essential. LAB L501.1110 >60 mL/min Low EST GFR 7 Result Comment: Non- GFR Calc LAB L501.1115 >60 mL/min Low EST GFR - AA 8 Result Comment: GFR Calc LAB L501.1255 ml/min Normal Estimated CRCL 9.44 LAB L501.1300 10-20 RATIO Low BUN/CRE 9.0 LAB L501.2200 8.5-10. mg/dL Normal 1 CA 8.6 LAB L501.5300 136-145 mmol/L Normal NA 136 LAB L501.5600 3.5-5.1 mmol/L Normal K 4.7 LAB L501.5900 98-107 mmol/L Normal CL 98 LAB L501.6100 21.0-32 mmol/L Normal .0 CO2 26.0 LAB L501.6200 5-15 Normal GAP 12 Performed By: #### L500.2500 #### [facility] [address] [place], [address] CHEST PA AND LATERAL Observed: 07/18/2018 Status: F Source: [place] 7:21 PM [facility] REPOSITORY [facility] Imaging Services [address] [place] [address] Chest PA and Lateral MR#: [id number] Acct: [id number] Name: KOURTNEY REZA Rep #: [id number] : 1975 F 42 From: Chucky Zelaya MD PCP: Ric Mccrary MD Status: PRE ER Study: Chest PA and Lateral Date of Exam: 07/18/18 Exam# [id number] Ordering Dr: Provider,Ed P. STUDY: X-RAY CHEST REASON FOR EXAM: Female, 42 years old. Cough TECHNIQUE: Frontal and lateral views of the chest COMPARISON: 06/29/2018 FINDINGS: There are mild congestive changes noted. The lungs are otherwise clear. There are no pleural effusions. There is no pneumothorax. The heart is mildly enlarged, but stable. In size. The visualized osseous structures are within normal limits. RAD/Chest PA and Lateral IMPRESSION: Mild pulmonary vascular congestion. Electronically Signed: Chucky Zelaya, at 20:09 EST Tel , Service support , CC: ED PHYSICIAN PROVIDER; Ric Mccrary MD Tester Operator Helper: Signed CNPTOUTREACH Observed: 07/10/2018 Status: COMPLETED Source: [place] 12:00 AM [facility] REPOSITORY Patient Outreach ([facility]) KOURTNEY REZA ([id number]) 1975 F Date Time Provider Department 07/10/18 RIC MCCRARY [facility] During your visit today, we recorded the following information about you: Allergies As of Date: 07/10/2018 Noted Allergy Reaction LATEX 01/20/2006 2 - Rash NSAIDS (NON-STEROIDAL ANTI-INFLAM*05/12/2017 15 - Contraindication- Medical [place]* PERCOCET (OXYCODONE-ACETAMINOPHEN)10/28/2013 1 - Mental Status Change REGLAN (METOCLOPRAMIDE) 07/03/2013 11 - Vomiting Date Reviewed: 03/05/2018 Reviewed by: Eunice Lopez Tobacco Baler - Fully Assessed Visit Diagnosis:Medication management [Z79.899] Order(s):CBC [SQCBC] Order #: [id number] FUTURE Prescriptions as of 07/10/2018 Sig: ALPRAZOLAM 0.5 MG TABLET TAKE 1 TABLET PRIOR TO DIALYS* ASPIRIN 81 MG TABLET,DELAYED * Take 1 tablet by mouth once d* ATORVASTATIN 40 MG TABLET Take 1 tablet by mouth once d* BLOOD SUGAR DIAGNOSTIC STRIPS Test blood sugar(s) 4- 6 times* BLOOD SUGAR DIAGNOSTIC STRIPS Test blood sugar(s) 4 times d* BLOOD-GLUCOSE METER KIT Freestyle LITE Meter Kit - CALCIUM ACETATE 667 MG CAPSULE Take 1 capsule by mouth three* IRON, CARBONYL 45 MG TABLET Take 1 tablet by mouth three * CLOPIDOGREL 75 MG TABLET Take 1 tablet by mouth once d* CYCLOBENZAPRINE 10 MG TABLET Take 1 tablet by mouth three * DILTIAZEM CR 240 MG CAP Take 1 capsule by mouth once * ERGOCALCIFEROL (VITAMIN D2) 5* Take 1 capsule by mouth once * FAMOTIDINE 20 MG TABLET Take 1 tablet by mouth once d* FLUOXETINE 40 MG CAPSULE TAKE 1 CAPSULE BY MOUTH EVERY* HYDRALAZINE 25 MG TABLET Take 1 tablet by mouth three * INSULIN ASPART U-100 100 UNI* 8 units three times a day wit* INSULIN GLARGINE (U-100) 100 * Inject 5 Units subcutaneously* PEN NEEDLE, DIABETIC 31 GAUGE* Use one needle per dose. 4 x * PEN NEEDLE, DIABETIC 29 GAUGE* 1 Each once daily. ISOSORBIDE MONONITRATE ER 60 * Take 1 tablet by mouth once d* LANCETS Test blood sugar(s) 4- 6 times* LISINOPRIL 20 MG TABLET Take 1 tablet by mouth once d* NYSTATIN 100,000 UNIT/GRAM TO* Apply 1 application to affect* OSTOMY SUPPLIES Ostomy bag Holister brand #18* OSTOMY SUPPLIES 4 X 4 WAFER Holister wafer Reorder #[id number] PROMETHAZINE 25 MG TABLET TAKE 1 TABLET BY MOUTH EVERY * SODIUM BICARBONATE 650 MG TAB* 650 mg on T, Th and Sat per D* X CARVEDILOL 25 MG TABLET TAKE 1 TABLET BY MOUTH TWICE * Problem List As Of Date 07/10/2018 Noted Resolved VULVAL ABSCESS [N76.4] INVALID FOR*10/28/2013 Retinopathy due to secondary diabetes mellitus * Proteinuria [R80.9] Renal insufficiency [N28.9] 03/06/2017 Neuropathy [G62.9] INVALID FOR* HTN (hypertension) [I10] INVALID FOR* Anxiety [F41.9] INVALID FOR* More... Diabetes mellitus [E11.9] INVALID FOR* Cardiomyopathy, nonischemic [I42.8] INVALID FOR* Iron deficiency [E61.1] INVALID FOR* Anemia [D64.9] INVALID FOR* Scar condition and fibrosis of skin: Atrophic D*INVALID FOR* Rosacea [L71.9] INVALID FOR* Other acne [L70.8] INVALID FOR* Telangiectasia [I78.1] INVALID FOR* Irritant dermatitis [L24.9] INVALID FOR* Nodulocystic acne [L70.0] INVALID FOR* Dysfunctional uterine bleeding [N93.8] INVALID FOR* Vitamin D deficiency [E55.9] INVALID FOR* Asthma [J45.909] INVALID FOR* Obesity [E66.9] INVALID FOR* CHF (congestive heart failure) (HCC) [I50.9] INVALID FOR* Chronic renal failure, stage 5 (HCC) [N18.5] INVALID FOR* More... Complication of dialysis access insertion (HCC)*INVALID FOR* GABRIEL (obstructive sleep apnea) [G47.33] INVALID FOR* More... Diarrhea, functional [K59.1] INVALID FOR* More... Bloody stools [K92.1] INVALID FOR* More... C. difficile diarrhea [A04.72] INVALID FOR* More... Adenoma of left adrenal gland [D35.02] INVALID FOR* More... CAD S/P percutaneous coronary angioplasty [I25.*INVALID FOR* Encounter Status:Closed by ABHI, PRODUSER on 07/25/18 DISCHARGE SUMMARY Observed: 07/05/2018 Status: F Source: [facility] 3:16 PM [facility] REPOSITORY [facility] Medical Records Department [address] [place] [address] Discharge Summary 07/03/18 1021 MR#: [id number] Acct: [id number] Name: KOURTNEY REZA Rep #: [id number] : 1975 42 From: Meghann Pressley MD PCP: Ric Mccrary MD Status: DIS IN Y Location: [place] [id number] ADDENDUM by Meghann Pressley MD on 07/05/18 at 1516 Code Visit Cannot reliable tell if patient is Type1 or Type 2. Suspected to be type 2. Records going back to 2012 are mixed. 07/05/18 1516 <Electronically signed by Meghann Pressley MD> Date Meghann Pressley MD cc: Meghann Pressley MD; Ric Mccrary MD * Signed Discharge Date and Diagnosis Date of Admission: 07/01/18 Date of Discharge: 07/03/18 - Primary Discharge Diagnosis Chest pain, atypical Recent URI - Secondary Discharge Diagnosis Chronic Problems (Last Updated 02/27/18 @ 10:29 by Pricila Olson) CAD (coronary artery disease) (Chronic) Stented coronary artery (Chronic 02/26/18) FFR of LAD 0.82; VIKY of mid LAD with 2.5 X 24 mm Promus Synergy, OM <50% stenosis per Dr. 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) S/P PTCA/VIKY to mid LAD in February 2018 OM #1 noted to be 50%; ESRD (end stage renal disease) on dialysis (Chronic) Decubitus ulcer, stage III (Chronic) Anemia, chronic disease (Chronic) Pilonidal cyst with abscess (Chronic) GABRIEL (obstructive sleep apnea) (Chronic) Depression (Chronic) Anxiety (Chronic) HTN (hypertension) (Chronic) Diabetes mellitus type 1 (Chronic) Hyperlipidemia (Chronic) Obesity (BMI 30.0-34.9) (Chronic) Gastroparesis (Chronic) Hospital Course and Treatment Cardiology Operations: None Procedures: None Summary of Care Provided: 42-year-old female with past medical history of ESRD on hemodialysis (Monday, , Monday), type II DM complicated with neuropathy and gastroparesis, hypertension, hyperlipidemia, obesity comes in with complaints of chest pain and cough. 1. Chest pain, atypical, history of CAD s/p stents, mild elevation of troponins on admission, cardiology consulted, medical management commended, managed on aspirin, plavix, statin, carvedilol, isosorbide mononitrate, ACEI 2. Recent URI, influenza negative, managed symptomatically with as needed breathing treatments. 3. ESRD on HD, dialysis plan for outpatient on the day of discharge. 4. Chronic systolic/diastolic CHF, cardiomyopathy unclear type, not in acute exacerbation. 5. Type 2 DM, complicated with neuropathy and gastroparesis, on insulin 7. Hypertension, controlled, on carvedilol, Imdur, Lisinopril 8. Hyperlipidemia, on statin 9. Nicotine dependency, on nicotine replacement 10. Obesity, BMI 31.5, diet and exercises recommended 11.Musculoskeletal pain, recent mechanical fall with lumbar strain/contusion, managed conservatively with heating pad and tramadol as needed Subjective: Patient was seen and examined. Denied any new complaints. Feels much better. Her cough has improved. No fever or chills or shortness of breath. She is due to get dialysis today. - Physical Exam General: Alert, Oriented x3, Cooperative, No apparent distress HEENT: Atraumatic, PERRLA, EOMI, Normocephalic Oral: Moist Mucosa Neck: Supple, No JVD, Negative Carotid Bruits Lungs: Clear to auscultation, Normal air movement Cardiovascular: Regular rate, Regular Rhythm, Normal S1, Normal S2, No murmurs Abdomen: Bowel Sounds Present, Soft, Non Tender Extremities: No edema Skin: No rashes, No breakdown Musculoskeletal: No Tenderness to Palpation of Joints or Extremities, Tenderness - Mild, over the left flank Lymphatic: No Cervical, Supraclavicular, or Inguinal Adenopathy Neurological: Cranial nerves II-XII grossly intact Psych/Mental Status: Normal Affect, Appropriate Vital Signs Temp Pulse Resp BP Pulse Ox 98.4 F 86 18 111/74 97 07/03/18 09:30 07/03/18 09:30 07/03/18 09:30 07/03/18 09:30 07/03/18 09:30 Oxygen Flow Rate (L/min) 2 Oxygen Delivery Method Nasal Cannula Weight: 88.5 kg Body Mass Index (BMI) 31.4 Finger Stick Blood Glucose 118 Intake and Output for Last 24 Hours Intake Total 720 / 720 800 / 800 1150 / 1150 Output Total 1400 / 1400 Balance 720 / 720 -600 / -600 1150 / 1150 Microbiology Past 72 Hours 07/01/18 14:55 Respiratory Panel (PCR) - Final Mucosa - Nasopharyngeal POC Glucose POC Glucose 210 H 212 H 143 H POC Glucose 115 H Discharge Diet: 1999 Calorie Control Diet, Renal Diet Discharge Activity: Return to Normal Activity Home Medications: Medications to take at Discharge Aspirin [Aspirin, Baby] 81 mg PO DAILY@0800 01/26/16 Calcium Acetate [Phoslo Gel Cap] 1,334 mg PO TIDCM 01/26/16 Ergocalciferol [Vitamin D] 50,000 unit PO QWEEK 01/26/16 Insulin Aspart [Novolog Flexpen] 10 units SC TIDCM 01/26/16 Insulin Glargine,Hum.rec.anlog [Lantus] 4 unit SQ QHS 01/09/17 proMETHazine tablet [Phenergan tablet] 25 mg PO Q6H PRN PRN #10 tab 03/06/17 Lisinopril 40 mg PO DAILY 03/29/17 Sodium Bicarbonate 650 mg PO 4X/DAY 03/29/17 Omeprazole Magnesium [Prilosec Otc] 20 mg PO DAILY 02/08/18 Isosorbide Mononitrate [Isosorbide Mononitrate ER] 60 mg PO DAILY 02/28/18 Atorvastatin Calcium [Lipitor] 20 mg PO QHS 05/26/18 Carvedilol [Coreg] 25 mg PO BID 05/26/18 Loperamide HCl [Imodium A-D] 2 mg PO TID PRN 05/26/18 Pantoprazole Sodium [Protonix] 20 mg PO BID 05/26/18 Clopidogrel Bisulfate [Plavix] 75 mg PO DAILY 07/01/18 Albuterol Aerosols [Ventolin Aerosols] 2.5 mg INHALATION Q2H PRN PRN #30 vial.neb. 07/03/18 Lidocaine/Prilocaine HCl [Emla Cream W/Tegaderm] 1 applicatio TOPICAL X1 #1 tube 07/03/18 Following Prescrptions Were Given to Patient: Albuterol Aerosols [Ventolin Aerosols] 2.5 mg INHALATION Q2H PRN PRN #30 vial.neb. PRN Reason: dyspnea, wheezing Lidocaine/Prilocaine HCl [Emla Cream W/Tegaderm] 1 applicatio TOPICAL X1 #1 tube Primary Care Physician: Ric Mccrary MD [Primary Care Provider] - Please follow up with your Primary Care Physician in: within 2 weeks of discharge Please Follow Up With: Wm Underwood MD When: in 2 weeks Please Follow Up With: Mirza Molina MD When: as scheduled for dialysis Disposition: Home Minutes spent on discharge:: 40 Patient Condition:: Stable Medical Necessity - Tobacco Use Smoking Status: Current some day smoker Tobacco Use: Cigarettes Meaningful Use Info Meaningful Use Diagnoses (Choose all that apply): None applicable Code Visit Inpatient E AND M: 03083 Disch Hosp 07/03/18 1351 <Electronically signed by Meghann Pressley MD> Date Meghann Pressley MD Cosigner Signature (if applicable): Date CC: Meghann Pressley MD; Ric Mccrary MD Signed DISCHARGE INSTRUCTION Observed: 07/03/2018 Status: F Source: [facility] 10:21 [facility] REPOSITORY [facility] Medical Records Department [address] [place] [address] Instructions for Home/Discharge Instructions 07/03/18 1016 MR#: [id number] Acct: [id number] Name: KOURTNEY REZA Van Rep #: [id number] : 1975 42 From: Meghann Pressley MD PCP: Ric Mccrary MD Status: ADM IN - Discharge Diagnoses Reason(s) for Visit for Discharge Instructions: Chest pain, shortness of breath You will use the following diet at home:: Calorie/Carbohydrate Controlled (specify 1200, 1400, etc), Renal (restricted protein/sodium) Your food should be the consistency of: Regular Your liquids should be the consistency of: Regular/Thin Discharge Activity: Return to Normal Activity Additional Instructions: Continue to follow with your nephrology for dialysis as scheduled. You have bene prescribed breathing treatments as needed for shortness of breath. Allergies/Adverse Reactions: Allergies latex Allergy (Verified 06/29/18 14:21) Rash prochlorperazine [From Compazine] Allergy (Verified 06/29/18 14:21) Unknown levofloxacin [From Levaquin] Adverse Reaction (Verified 06/29/18 14:21) PT CAN'T REMEMBER PT CAN'T REMEMBER metoclopramide HCl [From Reglan] Adverse Reaction (Verified 06/29/18 14:21) Nausea NSAIDS (Non-Steroidal Anti-Inflamma Adverse Reaction (Verified 06/29/18 14:21) kidney function oxycodone HCl [From Percocet] Adverse Reaction (Verified 06/29/18 14:21) HALLUCINATIONS Medications to take at Discharge Aspirin [Aspirin, Baby] 81 mg PO DAILY@0800 01/26/16 Calcium Acetate [Phoslo Gel Cap] 1,334 mg PO TIDCM 01/26/16 Ergocalciferol [Vitamin D] 50,000 unit PO QWEEK 01/26/16 Insulin Aspart [Novolog Flexpen] 10 units SC TIDCM 01/26/16 Insulin Glargine,Hum.rec.anlog [Lantus] 4 unit SQ QHS 01/09/17 proMETHazine tablet [Phenergan tablet] 25 mg PO Q6H PRN PRN #10 tab 03/06/17 Lisinopril 40 mg PO DAILY 03/29/17 Sodium Bicarbonate 650 mg PO 4X/DAY 03/29/17 Omeprazole Magnesium [Prilosec Otc] 20 mg PO DAILY 02/08/18 Isosorbide Mononitrate [Isosorbide Mononitrate ER] 60 mg PO DAILY 02/28/18 Atorvastatin Calcium [Lipitor] 20 mg PO QHS 05/26/18 Carvedilol [Coreg] 25 mg PO BID 05/26/18 Loperamide HCl [Imodium A-D] 2 mg PO TID PRN 05/26/18 Pantoprazole Sodium [Protonix] 20 mg PO BID 05/26/18 Clopidogrel Bisulfate [Plavix] 75 mg PO DAILY 07/01/18 Albuterol Aerosols [Ventolin Aerosols] 2.5 mg INHALATION Q2H PRN PRN #30 vial.neb. 07/03/18 The following prescriptions were given: Albuterol Aerosols [Ventolin Aerosols] 2.5 mg INHALATION Q2H PRN PRN #30 vial.neb. PRN Reason: dyspnea, wheezing Primary Care Physician: Ric Mccrary MD [Primary Care Provider] - Please follow up with your Primary Care Physician in: within 2 weeks of discharge Test Results: Test results from this visit will be discussed in further detail at your follow-up appointment, if applicable. Please Follow Up With: Wm Underwood MD When: in 2 weeks Please Follow Up With: Mirza Molina MD When: as scheduled for dialysis Proposed Discharge Date: 07/03/18 07/03/18 1021 <Electronically signed by Meghann Pressley MD> Date Meghann Pressley MD CC: Robert Tompkins MD; Mirza Molina MD; Ric Mccrary MD ECHO, COMPLETE W/ Observed: 07/03/2018 Status: F Source: [place] CONTRAST 10:17 [facility] REPOSITORY [facility] Cardiovascular Services [address] [place] [address] Echo Complete W/ Contrast 07/02/18 0846 MR#: [id number] Acct: [id number] Name: KOURTNEY REZA Rep #: [id number] : 1975 42 From: Wm Underwood MD Attending Dr: Meghann Pressley MD Status: ADM IN Ordering Dr: Rivka Charles Date: 07/01/18 Location: U Sex: F C Admitted: 07/02/18 Reason For Study: CAD/ASHD Procedure This was a 2D Doppler, Color Flow transthoracic echocardiogram. The study was technically difficult. Contrast injection was performed. Exam performed portable in patient room. Left Ventricle Moderately dilated left ventricle. The estimated ejection fraction is 45 %. Stage 2 diastolic dysfunction. There is moderate global hypokinesis of the left ventricle. Right Ventricle Normal size and thickness. Normal systolic function. Atria Normal left atrium. Normal right atrium. Normal atrial septum. Mitral Valve The mitral valve is structurally normal. No prolapse or stenosis seen. Mild (1+) mitral valve insufficiency. Tricuspid Valve Normal tricuspid valve. Trivial tricuspid valve insufficiency. Right ventricular systolic pressure estimated to be 22 mmHg. Aortic Valve Normal aortic valve. Trisinus/trileaflet aortic valve. Pulmonic Valve Normal pulmonic valve. Trivial pulmonic valve insufficiency. Great Vessels Normal aortic root. Normal arch. The inferior vena cava is dilated. Pericardium/Pleural No pericardial effusion. Medication Diluted definity 3ml given slow IV push to enhance endocardial definition. MMode/2D Measurements AND Calculations LVIDd: 6.0 cm IVSd: 1.4 cm Ao root diam: 3.2 cm LVIDs: 4.5 cm LVPWd: 0.93 cm LA dimension: 3.8 cm FS: 24.8 % Time Measurements MV dec time: 0.10 sec Doppler Measurements AND Calculations MV E max alla: 106.2 cm/sec Med Peak E' Alla: 4.4 cm/sec MV V2 max: 125.3 cm/sec MV A max alla: 38.4 cm/sec E/E' med: 24.0 MV max P.3 mmHg MV E/A: 2.8 MV V2 mean: 61.8 cm/sec MV mean P.0 mmHg MV V2 VTI: 24.2 cm MV P1/2t max alla: 122.3 cm/sec Ao V2 max: 108.0 cm/sec LV V1 max: 99.2 cm/sec MV P1/2t: 66.9 msec Ao max P.7 mmHg LV V1 max P.9 mmHg Ao V2 mean: 66.5 cm/sec LV V1 mean P.7 mmHg MV dec slope: 535.2 cm/sec2 Ao mean P.1 mmHg LV V1 mean: 59.2 cm/sec MVA(P1/2t): 3.3 cm2 Ao V2 VTI: 16.6 cm LV V1 VTI: 18.3 cm MR max alla: 473.4 cm/sec PA V2 max: 92.5 cm/sec TR max alla: 208.4 cm/sec MR max P.6 mmHg TR max P.4 mmHg MR mean alla: 359.1 cm/sec MR mean P.4 mmHg MR VTI: 153.4 cm Interpretation Summary Moderately dilated left ventricle. The estimated ejection fraction is 45 %. There is moderate global hypokinesis of the left ventricle. Stage 2 diastolic dysfunction. Mild (1+) mitral valve insufficiency. Trivial tricuspid valve insufficiency. Right ventricular systolic pressure estimated to be 22 mmHg. Compared to echo report dated 11/15/2017, no appreciable changes noted. The study was technically difficult. Contrast injection was performed. Ordering Physician: Rivka Charles Referring Physician: Rivka Charles Performed By: Anup Brush RCS 07/03/18 1017 Date Wm Underwood MD CC: Meghann Pressley MD; Rivka Mccrary MD Date Dictated: 07/02/18 0846 Date Transcribed: 07/03/18 1017 Tester Operator Helper: Signed 12 LEAD ELECTROCARDIOGRAM Observed: 07/03/2018 Status: F Source: [facility] 9:03 AM [facility] REPOSITORY [facility] Cardiovascular Services [address] [place] [address] 12 Lead EKG 07/01/18 1504 MR#: [id number] Acct: [id number] Name: KOURTNEY REZA Rep #: [id number] : 1975 42 From: Robert Tompkins MD Attending Dr: Meghann Pressley MD Status: ADM IN Ordering Dr: Rivka Charles Date: 07/01/18 Location: [facility] Sex: F C Admitted: 07/02/18 Test Reason : DISRHYTHMIA Blood Pressure : / mmHG Vent. Rate : 086 BPM Atrial Rate : 086 BPM P-R Int : 128 ms QRS Dur : 092 ms QT Int : 404 ms P-R-T Axes : 063 060 251 degrees QTc Int : 483 ms Normal sinus rhythm T wave abnormality, consider inferolateral ischemia Prolonged QT Abnormal ECG When compared with ECG of 26-MAY-2018 13:30, T wave inversion now evident in Anterolateral leads Confirmed by LEDA BEASLEY, ROBERT ([id number]), web editor SHANIA SOLITARIO ([id number]) on 07/03/2018 9:04:54 AM Referred By: Rivka Charles Confirmed By:ROBERT TOMPKINS MD 07/03/18 0904 Date Robert Tompkins MD CC: Meghann Pressley MD; Rivka Mccrary MD Signed 12 LEAD ELECTROCARDIOGRAM Observed: 07/03/2018 Status: F Source: [facility] 9:01 AM [facility] REPOSITORY [facility] Cardiovascular Services [address] [place] [address] 12 Lead EKG 12/05/10 521 MR#: [id number] Acct: [id number] Name: KOURTNEY REZA Rep #: [id number] : 1975 42 From: Robert Tompkins MD Attending Dr: Meghann Pressley MD Status: ADM IN Ordering Dr: Rivka Charles Date: 07/02/18 Location: [facility] Sex: F C Admitted: 07/02/18 Test Reason : AM EKG Blood Pressure : / mmHG Vent. Rate : 078 BPM Atrial Rate : 078 BPM P-R Int : 136 ms QRS Dur : 084 ms QT Int : 422 ms P-R-T Axes : 035 059 240 degrees QTc Int : 481 ms Normal sinus rhythm ST AND T wave abnormality, consider inferior ischemia ST AND T wave abnormality, consider anterolateral ischemia Prolonged QT Abnormal ECG Confirmed by LEDA BEASLEY, ROBERT ([id number]), web editor SHANIA SOLITARIO ([id number]) on 07/03/2018 9:03:23 AM Referred By: Rivka Charles Confirmed By:ROBERT TOMPKINS MD 07/03/18 0903 Date Robert Tompkins MD CC: Meghann Pressley MD; Rivka Charles; Ric Mccrary MD Signed BEDSIDE GLUCOSE Collected: 07/03/2018 Status: F Source: [facility] 6:46 AM [facility] REPOSITORY TYPE CODE TESTS RESULT OUT OF REFERENCE UNITS RANGE LAB L501.080 70-110 mg/dL High BEDSIDE GLU 210 Result Comment: MANAGEMENT OF PATIENT CARE PER NURSING PROTOCOL Performed By: #### L501.080 #### [facility] Laboratory Point of Care [address] [facility] [address] [place], [place] [id number] BEDSIDE GLUCOSE Collected: 07/02/2018 Status: F Source: CI[facility] 9:59 PM [facility] REPOSITORY TYPE CODE TESTS RESULT OUT OF REFERENCE UNITS RANGE LAB L501.080 70-110 mg/dL High BEDSIDE GLU 212 Result Comment: MANAGEMENT OF PATIENT CARE PER NURSING PROTOCOL Performed By: #### L501.080 #### [facility] Point of Care [address] [place] [address] BEDSIDE GLUCOSE Collected: 07/02/2018 Status: F Source: [facility] 4:25 PM [facility] REPOSITORY TYPE CODE TESTS RESULT OUT OF REFERENCE UNITS RANGE LAB L501.080 70-110 mg/dL High BEDSIDE GLU 143 Result Comment: MANAGEMENT OF PATIENT CARE PER NURSING PROTOCOL Performed By: #### L501.080 #### [facility] Point of Care [address] [place] [address] BEDSIDE GLUCOSE Collected: 07/02/2018 Status: F Source: [facility] 11:29 AM [facility] REPOSITORY TYPE CODE TESTS RESULT OUT OF REFERENCE UNITS RANGE LAB L501.080 70-110 mg/dL High BEDSIDE GLU 115 Result Comment: MANAGEMENT OF PATIENT CARE PER NURSING PROTOCOL Performed By: #### L501.080 #### [facility] Point of Care [address] [place] [address] CONSULTATION Observed: 07/02/2018 Status: F Source: [facility] 8:55 AM [facility] REPOSITORY [facility] Medical Records Department [address] [place] [address] Consultation 07/02/18 0841 MR#: [id number] Acct: [id number] Name: KOURTNEY REZA Rep #: [id number] : 1975 42 From: Nawaf Valdivia MD PCP: Ric Mccrary MD Status: ADM AIDEN Y Location: [place] [address] Problem List (1) ESRD (end stage renal disease) on dialysis Status: Chronic Consultation - Renal PCP/ Referring MD: Requesting physician: [] Primary care physician: Ric Mccrary - History of Present Illness History of Present Illness: The patient is a 42 year old F past medical history of end- stage renal disease on Monday schedule for hemodialysis , diabetes , hypertension , coronary artery disease , hyperlipidemia . Patient presented with worsening chest pain with some dyspnea . Patient has recent dobutamine stress test which was negative for ischemia Pt also has been complaining of SOB .cough and fever for 4- 5 days. Renal team was consulted for end-stage renal disease management . Patient had last session of hemodialysis and June 30 . Cardiology service was consulted and there is no plan for intervention . : Review of system . 12 system review is negative except what mentioned in HPI.[] - Allergies Allergies: Allergies latex Allergy (Verified 06/29/18 14:21) Rash prochlorperazine [From Compazine] Allergy (Verified 06/29/18 14:21) Unknown levofloxacin [From Levaquin] Adverse Reaction (Verified 06/29/18 14:21) PT CAN'T REMEMBER PT CAN'T REMEMBER metoclopramide HCl [From Reglan] Adverse Reaction (Verified 06/29/18 14:21) Nausea NSAIDS (Non-Steroidal Anti-Inflamma Adverse Reaction (Verified 06/29/18 14:21) kidney function oxycodone HCl [From Percocet] Adverse Reaction (Verified 06/29/18 14:21) HALLUCINATIONS - Current Medications Current Medications: Current Medications Acetaminophen (Tylenol) 650 mg PO Q6H PRN PRN PRN Reason: Non-cardiac pain (mod-severe) Last Admin: 07/02/18 06:30 Dose: 650 mg Al Hydroxide/Mg Hydroxide (Mylanta Ii) 30 ml PO Q6H PRN PRN PRN Reason: Gastric burning Albuterol Sulfate (Ventolin Aerosols) 2.5 mg INHALATION Q2H PRN PRN PRN Reason: dyspnea, wheezing Albuterol/Ipratropium (Duoneb) 3 ml INHALATION Q4HWA.RT [facility] Last Admin: 07/02/18 06:51 Dose: 3 ml Aspirin (Aspirin, Baby) 81 mg PO DAILY@0800 [facility] Last Admin: 07/02/18 08:08 Dose: 81 mg Atorvastatin Calcium (Lipitor) 20 mg PO QHS [facility] Last Admin: 07/01/18 22:05 Dose: 20 mg Calcium Acetate (Phoslo Gel Cap) 1,334 mg PO TIDCM [facility] Last Admin: 07/02/18 08:08 Dose: 1,334 mg Carvedilol (Coreg) 25 mg PO BID [facility] Last Admin: 07/01/18 22:05 Dose: 25 mg Clopidogrel Bisulfate (Plavix) 75 mg PO DAILY [facility] Ergocalciferol (Vitamin D) 50,000 unit PO QWEEK [facility] Erythromycin () 1 applic RIGHT EYE 4X/DAY [facility] Last Admin: 07/01/18 22:04 Dose: 1 applic Guaifenesin (Mucinex) 1,200 mg PO BID [facility] Last Admin: 07/01/18 22:05 Dose: 1,200 mg Heparin Sodium (Porcine) (Heparin Na) 5,000 unit SC Q12 [facility] Last Admin: 07/01/18 22:05 Dose: 5,000 unit Hydralazine HCl (Apresoline Iv) 10 mg IV Q4H PRN PRN PRN Reason: SBP > 160 Insulin Glargine (Lantus ([facility])) 4 units SC QHS [facility] Last Admin: 07/01/18 22:13 Dose: 4 u Insulin Human Lispro (Humalog Kwikpen ([facility] [facility])) 10 unit SC TIDCM [facility] Last Admin: 07/02/18 08:08 Dose: 10 u Isosorbide Mononitrate (Imdur) 60 mg PO DAILY [facility] Lisinopril (Zestril) 40 mg PO DAILY [facility] Loperamide HCl (Imodium) 2 mg PO TID PRN PRN Reason: STOOLING Magnesium Hydroxide (Milk Of Magnesia) 30 ml PO DAILY PRN PRN Reason: Constipation Nicotine (Nicoderm Cq (Pbkc)) 14 mg TRANSDERM. DAILY [facility] Last Admin: 07/01/18 17:25 Dose: 14 mg Ondansetron HCl (Zofran) 4 mg IV Q8H PRN PRN PRN Reason: NAUSEA Last Admin: 07/01/18 22:13 Dose: 4 mg Pantoprazole Sodium (Protonix) 20 mg PO BID [facility] Last Admin: 07/01/18 22:05 Dose: 20 mg Promethazine HCl (Phenergan) 12.5 mg IV Q6H PRN PRN PRN Reason: NAUSEA/VOMITING Last Admin: 07/02/18 04:47 Dose: 12.5 mg Sodium Bicarbonate (Sodium Bicarbonate) 650 mg PO 4X/DAY [facility] Last Admin: 07/01/18 22:05 Dose: 650 mg Sodium Chloride () 5 - 15 ml IV UD PRN PRN Reason: SALINE FLUSH Last Admin: 07/02/18 04:47 Dose: 10 ml - Past Medical History Past Medical History (Chronic Problems): Chronic Problems (Last Updated 02/27/18 @ 10:29 by Pricila Olson) CAD (coronary artery disease) (Chronic) Stented coronary artery (Chronic 02/26/18) FFR of LAD 0.82; VIKY of mid LAD with 2.5 X 24 mm Promus Synergy, OM <50% stenosis per Dr. 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) S/P PTCA/VIKY to mid LAD in February 2018 OM #1 noted to be 50%; ESRD (end stage renal disease) on dialysis (Chronic) Decubitus ulcer, stage III (Chronic) Anemia, chronic disease (Chronic) Pilonidal cyst with abscess (Chronic) GABRIEL (obstructive sleep apnea) (Chronic) Depression (Chronic) Anxiety (Chronic) HTN (hypertension) (Chronic) Diabetes mellitus type 1 (Chronic) Hyperlipidemia (Chronic) Obesity (BMI 30.0-34.9) (Chronic) Gastroparesis (Chronic) - Past Surgical History Surgical History: appendectomy, hysterectomy - and BSO, - - c-sections, L breast I+D for abscess, fistula placement LUE, L ankle surgery, appendectomy, PDA repair. Excision pilonidal cyst ulcer about 4 years ago. Colostomy placed due to rectal abscess/wound, patent ductus repair, drug-eluting stent placement left anterior descending coronary artery February 2018. - Social History Smoking Status: Current some day smoker Alcohol: None Drugs: None - Family History Maternal History Items: Cancer, COPD, Diabetes, Hypertension, Renal Disease, Stroke Paternal History Items: Diabetes Sibling History Items: Cancer, Diabetes - Physical Exam General: Alert, Oriented x3 HEENT: Atraumatic Oral: Moist Mucosa Neck: Supple, No JVD Lungs: Clear to auscultation Cardiovascular: Regular rate, Regular Rhythm, Normal S1 Abdomen: Bowel Sounds Present, Soft, Non Tender Extremities: No clubbing, No cyanosis, No edema Skin: No rashes Musculoskeletal: No Tenderness to Palpation of Joints or Extremities Lymphatic: No Cervical, Supraclavicular, or Inguinal Adenopathy Neurological: Cranial nerves II-XII grossly intact, Neuro grossly intact Psych/Mental Status: Normal Affect Vital Signs Temp Pulse Resp BP Pulse Ox 98.6 F 89 16 142/86 H 97 07/02/18 06:27 07/02/18 07:00 07/02/18 06:51 07/02/18 06:27 07/02/18 06:51 Oxygen Flow Rate (L/min) 2 Oxygen Delivery Method Room Air Weight: 88.5 kg Body Mass Index (BMI) 31.4 Finger Stick Blood Glucose 118 Intake and Output for Last 24 Hours Intake Total 720 / 720 Balance 720 / 720 Laboratory Tests Past 24 Hrs WBC 5.7 RBC 2.84 L Hgb 8.8 L Hct 29.7 L MCV 104.6 H MCH 31.0 WBC RBC Hgb Hct MCV MCH MCHC RDW RDW Differential Plt Count MPV Immature Gran % (Auto) POC Glucose POC Glucose 168 H 194 H 216 H Assessment/Plan All Active Problems (Last Updated 02/27/18 @ 10:29 by Pricila Olson) Nausea AND vomiting (Resolved) Migraine (Resolved) Metabolic encephalopathy (Resolved) Chest pain (Acute) Tooth abscess (Resolved) Intractable nausea and vomiting (Resolved) Pneumonia (Resolved) Pulmonary edema (Resolved) Hyperkalemia (Resolved) Atypical chest pain (Resolved) Acute hypoxic respiratory failure (Resolved) Pulmonary edema (Resolved) Clostridium difficile enterocolitis (Resolved) Necrotizing myositis (Resolved) Nonischemic cardiomyopathy (Resolved) S/P repair of PDA (patent ductus arteriosus) (Resolved) Dysmenorrhea (Resolved) Hx of necrotizing fascIItis (Resolved) Iron deficiency anemia due to chronic blood loss (Resolved) Systolic congestive heart failure (Resolved) 1-end-stage renal disease. On TTS schedule for hemodialysis. Patient goes to [facility] hemodialysis center. Last hemodialysis was June 30. No need for hemodialysis today. Will arrange hemodialysis session tomorrow as per the chronic order. HD access is LUE AVF 2-hypertension: Blood pressure is well controlled. Please continue the same doses of Coreg, isosorbide nitrate, lisinopril. 3-bone mineral disease. Continue PhosLo 1300 mg 3 times daily with meals. Check phosphorus level. 4-chest pain: Cardiology service on board. 5- URI infection. work up and symptomatic treatment as per the primary service Thank you for the consult. We will continue to follow 07/02/18 3407 <Electronically signed by Nawaf Valdivia MD> Date Nawaf Valdivia MD Cosigner Signature (if applicable): Date CC: Rivka Charles; Robert Tompkins MD; Mirza Molina MD; Ric Mccrary MD Signed CONSULTATION Observed: 07/02/2018 Status: F Source: [place] 7:29 AM [facility] REPOSITORY [facility] Medical Records Department [address] [place] [address] Consultation 07/01/18 1514 MR#: [id number] Acct: [id number] Name: KOURTNEY REZA Rep #: [id number] : 1975 42 From: Robert Tompkins MD PCP: Ric Mccrary MD Status: ADM AIDEN Y Location: [place] [address] Reason for Consult Date of Consultation: 07/01/18 Reason for Consultation: Abnormal cardiac enzymes History of Present Illness: KOURTNEY REZA, is a 42 F who presents to the emergency room at [facility] today with a temperature of 102 through the night, malaise and chest discomfort during cough. She says that she has not had any angina and has not had any chest discomfort which is similar to what she had prior to having her stent. She was seen in the emergency room and an EKG was done which demonstrated T wave inversions and her troponin was mildly abnormal and therefore the [facility] was called and requested for a transfer. She has history of coronary artery disease status post PTCA/VIKY to mid LAD in February 2018, remote PDA repair, end-stage renal disease on hemodialysis on Tuesdays, , and Saturdays, anemia of chronic disease, nonischemic cardiomyopathy, diabetes, hypertension, hyperlipidemia, and gastroparesis. Of note is the fact that she had presented [facility] emergency department on February 24, 2018 with recurrent chest pain. She underwent a heart catheterization that resulted and PTCA/VIKY to mid LAD with recommendation of medical management for mid obtuse marginal #1. She was discharged home. She then presented to [facility] emergency department 02/28/18 days later for dizziness and hyperkalemia. She again presented to the ED on 03/06/18 for bleeding from fistula site. She presented to the ED again on 03/12/18 for nausea, vomiting, and diarrhea. She was also evaluated during an admission in April 2018. 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 Pt. denies arm, jaw, or neck discomfort. Her exercise tolerance is stable via walking 30 minutes a evening and water aerobics. Pt. denies symptoms of CHF, palpitations, lightheadedness, dizziness, near syncope, or syncopal episodes. Pt. denies edema or claudication issues. Pt. denies orthopnea, PND, fever, chills, blood in urine, blood in stool, myalgia, or unexplainable fatigue. At this particular time she appears to be doing well with no angina Past Medical History Allergies/Adverse Reactions: Allergies latex Allergy (Verified 06/29/18 14:21) Rash prochlorperazine [From Compazine] Allergy (Verified 06/29/18 14:21) Unknown levofloxacin [From Levaquin] Adverse Reaction (Verified 06/29/18 14:21) PT CAN'T REMEMBER PT CAN'T REMEMBER metoclopramide HCl [From Reglan] Adverse Reaction (Verified 06/29/18 14:21) Nausea NSAIDS (Non-Steroidal Anti-Inflamma Adverse Reaction (Verified 06/29/18 14:21) kidney function oxycodone HCl [From Percocet] Adverse Reaction (Verified 06/29/18 14:21) HALLUCINATIONS Home Medications: Ambulatory Orders Medication Instructions Recorded Aspirin [Aspirin, Baby] 81 mg PO DAILY@0800 01/26/16 Calcium Acetate [Phoslo Gel Cap] 1,334 mg PO TIDCM 01/26/16 Past Medical History (Chronic Problems): Chronic Problems (Last Updated 02/27/18 @ 10:29 by Pricila Olson) CAD (coronary artery disease) (Chronic) Stented coronary artery (Chronic 02/26/18) FFR of LAD 0.82; VIKY of mid LAD with 2.5 X 24 mm Promus Synergy, OM <50% stenosis per Dr. 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) S/P PTCA/VIKY to mid LAD in February 2018 OM #1 noted to be 50%; ESRD (end stage renal disease) on dialysis (Chronic) Decubitus ulcer, stage III (Chronic) Anemia, chronic disease (Chronic) Pilonidal cyst with abscess (Chronic) GABRIEL (obstructive sleep apnea) (Chronic) Depression (Chronic) Anxiety (Chronic) HTN (hypertension) (Chronic) Diabetes mellitus type 1 (Chronic) Hyperlipidemia (Chronic) Obesity (BMI 30.0-34.9) (Chronic) Gastroparesis (Chronic) Surgical History: appendectomy, hysterectomy - and BSO, - - c-sections, L breast I+D for abscess, fistula placement LUE, L ankle surgery, appendectomy, PDA repair. Excision pilonidal cyst ulcer about 4 years ago. Colostomy placed due to rectal abscess/wound, patent ductus repair, drug-eluting stent placement left anterior descending coronary artery February 2018. 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 Tobacco Use: Cigarettes Alcohol: None Drugs: None Review of Systems - Review of Systems General: Reports: Fever, Fatigue, Malaise, Chills. Denies: Night Sweats HEENT: Denies: Vision Change Cardiovascular: Denies: Chest Discomfort, Shortness of Breath, Orthopnea, PND, Peripheral Edema, Palpitations, Lightheadedness, Dizziness, Near Syncope, Syncope Respiratory: Denies: Cough, Sputum Production, Hemoptysis Gastrointestinal: Denies: Indigestion, Hematemesis, Hematochezia, Melena Genitourinary: Denies: Dysuria, Hematuria Skin: Denies: Rash Neurological: Denies: Dizziness Psychiatric: Denies: Anxiety Endocrine: Denies: Unexplained Weight Loss Hematologic/ Lymphatic: Denies: Anemia Subjectve: Pleasant lady in no apparent distress Objective: Vital Signs Temp Pulse Resp BP Pulse Ox 98.4 F 94 18 141/67 H 94 07/01/18 14:19 07/01/18 15:07 07/01/18 14:19 07/01/18 14:19 07/01/18 14:19 Oxygen Delivery Method Room Air Weight: 195 lb 1.745 oz Body Mass Index (BMI) 31.4 Finger Stick Blood Glucose 118 General: Awake, Alert, Oriented x 3 HEENT: PERRL, EOMI, Sclera Non Icteric Neck: Supple, Good ROM, No Lymph Node Enlargement Lungs: Clear to auscultation Cardiovascular: Regular Rhythm, Normal S1, Normal S2, No Murmurs, No Rubs, No Gallops Vascular: No Carotid Bruits, Normal Femoral Pulses, Normal Radial Pulses, Normal Dorsalis Pedal Pulse, Normal Posterior Tibial Pulses Abdomen: Bowel Sounds Present, Soft, Non Tender, No HSM, No Organomegaly Extremities: No Cyanosis, No Clubbing, No edema Musculoskeletal: No Erythema Lymphatic: No Lymph Node Enlargement Neurological: No Focal Motor or Sensory Deficit Psych/Mental Status: Appropriate 07/01/18 14:40: Magnesium 2.0, Troponin I 0.315 H Rhythm: EKG: Normal sinus rhythm with lateral T wave inversions Assessment/Plan 1. Coronary artery disease: The patient presents with atypical non-exertional bronchitis related chest pain. In addition she had a fever within the last 24 hours with a temperature of 102. She says this pain is very similar to what she had prior to her angioplasty in 2018. Patient underwent a dobutamine echocardiogram in March 2018 which was negative for inducible ischemia, but did have a hypertensive blood pressure response to dobutamine. Patient also has a history of microvascular coronary artery disease and gets chest pain with significant hypertension. * In addition I recommend continuing her aspirin, Plavix, Imdur for hypertension. Her last dobutamine echocardiogram less than 2 months ago was negative for inducible ischemia. I reviewed her catheterization films and she had an excellent outcome of her LAD stent, and her left circumflex vessels are too small for stenting. Would not recommend repeat catheterization at this time. * Though her troponins are mildly abnormal I suspect this is secondary to demand ischemia as well as microvascular disease. Unless there is a significant rise in her troponins further I would continue with aggressive medical therapy. She does of course have significant renal dysfunction on dialysis. 2. Hyperlipidemia: Continue Lipitor therapy. Thank you for allowing me to participate in the care of your patient. Please don't hesitate to call if any issues arise 07/02/18 2237 <Electronically signed by Robert Tompkins MD> Date Robert Tompkins MD Cosigner Signature (if applicable): Date CC: Rivka Charles; Robert Tompkins MD; Mirza Molina MD; Ric Mccrary MD Signed BEDSIDE GLUCOSE Collected: 07/02/2018 Status: F Source: [place] 6:32 AM [facility] REPOSITORY TYPE CODE TESTS RESULT OUT OF REFERENCE UNITS RANGE LAB L501.080 70-110 mg/dL High BEDSIDE GLU 168 Result Comment: MANAGEMENT OF PATIENT CARE PER NURSING PROTOCOL Performed By: #### L501.080 #### [facility] Point [place] [address] CBC W/DIFF, AUTOMATED Collected: 07/02/2018 Status: F Source: [place] 5:45 AM [facility] REPOSITORY TYPE CODE TESTS RESULT OUT OF RANGE REFERENCE UNITS LAB L100.1000 4.4-11.0 K/mm3 Normal WBC 5.7 LAB L100.1200 4.2-5.4 M/mm3 Low RBC 2.84 LAB L100.1300 12.0-15.0 g/dl Low HGB 8.8 LAB L100.1400 37-47 % Low HCT 29.7 LAB L100.1500 81-99 fL High MCV 104.6 LAB L100.1600 27.0-32.0 pg Normal MCH 31.0 LAB L100.1700 32-36 g/gl Low MCHC 29.6 LAB L100.1810 11.6-14.6 % High RDW CV 17.1 LAB L100.1820 35.1-43.9 fl High RDW SD 62.4 LAB L100.1900 150-450 K/mm3 Low PLT 131 LAB L100.2000 6.2-12.0 fl Normal MPV 9.1 LAB L100.2100 47-70 % High NEUT% 81.2 LAB L100.2200 19-41 % Low LY% 10.1 LAB L100.2300 0-10 % Normal MONO% 5.1 LAB L100.2400 0-5 % Normal EO% 3.1 LAB L100.2500 0-1 % Normal BASO% 0.2 LAB L100.2550 0.0-0.9 % Normal IM GRAN % 0.300 Result Comment: IG% - Immature Granulocytes (promyelocytes, myelocytes and metamyelocytes) > 1% indicates that a LEFT SHIFT is Present. LAB L100.2620 2.0-7.7 X10 3/uL Normal Absolute Neut 4.6 LAB L100.2720 0.83-4.51 X10 3/ul Low Absolute Lymph 0.58 Performed By: #### L100.0100 #### [facility] [address] [place], [address] PROTHROMBIN TIME W/INR Collected: 07/02/2018 Status: F Source: [place] 5:45 AM [facility] REPOSITORY TYPE CODE TESTS RESULT OUT OF RANGE REFERENCE UNITS LAB L300.4150 11.7-14.9 SECONDS High PROTIME 16.0 LAB L300.4200 Normal INR 1.3 Performed By: #### L300.3900, L300.4310 #### [facility] [address] [place], [address] PARTIAL THROMBOPLAST Collected: 07/02/2018 Status: F Source: [place] TIME 5:45 AM [facility] [place] REPOSITORY TYPE CODE TESTS RESULT OUT OF REFERENCE UNITS RANGE LAB L300.4310 24.1-36.2 Seconds High PTT 36.9 Performed By: #### L300.3900, L300.4310 #### [facility] [address] [place], [address] BASIC METABOLIC Collected: 07/02/2018 Status: F Source: [place] PROFILE (BMP) 5:45 AM [facility] [place] REPOSITORY TYPE CODE TESTS RESULT OUT OF RANGE REFERENCE UNITS LAB L501.0100 74-106 mg/dL High GLU 156 Result Comment: Fasting Glucose result greater than or equal to 126 mg/dL suggests DIABETES MELLITUS per A.D.A. criteria. Please note revised GLUCOSE reference range effective 2017. LAB L501.1000 7-18 mg/dL High BUN 52 LAB L501.1100 0.55-1.02 mg/dL High CREAT,SERUM 7.15 Result Comment: The validity of the calculated GFR AND GFRAA in patients over 70 years has not been determined. Clinical correlation is essential. LAB L501.1110 >60 mL/min Low EST GFR 7 Result Comment: Non- GFR Calc LAB L501.1115 >60 mL/min Low EST GFR - AA 8 Result Comment: GFR Calc LAB L501.1255 ml/min Normal Estimated CRCL 9.40 LAB L501.1300 10-20 RATIO Low BUN/CRE 7.3 LAB L501.2200 8.5-10. mg/dL Low 1 CA 8.2 LAB L501.5300 136-145 mmol/L Normal NA 137 LAB L501.5600 3.5-5.1 mmol/L Normal K 4.6 LAB L501.5900 98-107 mmol/L Low CL 96 LAB L501.6100 21.0-32 mmol/L Normal .0 CO2 31.0 LAB L501.6200 5-15 Normal GAP 10 Performed By: #### L500.2500, L500.4100 #### [facility] [address] [place], [address] LIPID PROFILE Collected: 07/02/2018 Status: F Source: [place] 5:45 AM [facility] [place] REPOSITORY TYPE CODE TESTS RESULT OUT OF RANGE REFERENCE UNITS LAB L501.4900 200 mg/dL Normal CHOL 101 Result Comment: <200 mg/dL Desirable 200-240 mg/dL Borderline >240 mg/dL High Risk LAB L501.5000 mg/dL Normal TRIG 58 Result Comment: The drugs N-Acetylcysteine and Metamizole may falsely depress this assay. Serum Triglycerides Reference Interval Normal <150 mg/dL Borderline high 150 - 199 mg/dL High 200 - 499 mg/dL Very High > or = 500 mg/dL LAB L501.6400 mg/dL Low HDL 38 Result Comment: The drugs N-Acetylcysteine and Metamizole may falsely depress this assay. Reference Range HDL <40 mg/dL Low HDL Cholesterol HDL >or= 60 mg/dL High HDL Cholesterol LAB L501.6500 0-130 mg/dL Normal LDL 51 LAB L501.6600 5-40 mg/dL Normal VLDL 12 Performed By: #### L500.2500, L500.4100 #### [facility] [address] [place], [address] BEDSIDE GLUCOSE Collected: 07/01/2018 Status: F Source: [place] 9:59 PM [facility] [place] REPOSITORY TYPE CODE TESTS RESULT OUT OF REFERENCE UNITS RANGE LAB L501.080 70-110 mg/dL High BEDSIDE GLU 194 Result Comment: MANAGEMENT OF PATIENT CARE PER NURSING PROTOCOL Performed By: #### L501.080 #### [facility] Point of Care [address] [place] [address] TROPONIN-I Collected: 07/01/2018 Status: F Source: [place] 8:36 PM [facility] [place] REPOSITORY Order Comment: 'TROP' Serial specimen #1, #2 or #3: 3 TYPE CODE TESTS RESULT OUT OF RANGE REFERENCE UNITS LAB L501.4010 <0.045 ng/mL High 0.274 TROPONIN-I Result Comment: TROPONIN-I EXPECTED VALUES <0.045 Negative 0.045 - 0.590 Consistent with Cardiac Damage > OR = 0.600 Critical Value Not every elevated troponin is indicative of [place]. These values should be used with clinical judgement in examining the patient's clinical picture for diagnosis. To establish a diagnosis of [place] versus myocardial injury, there must be a demonstrated rise and/or fall in the troponin values, in addition to ischemic symptoms, EKG changes, new regional wall motion abnormality, and/or angiographical evidence. PLEASE NOTE: REFERENCE RANGES EDITED 17 Performed By: #### L501.4010 #### [facility] [address] [place], [address] TROPONIN-I Collected: 07/01/2018 Status: F Source: [place] 5:36 PM [facility] [place] REPOSITORY Order Comment: 'TROP' Serial specimen #1, #2 or #3: 2 TYPE CODE TESTS RESULT OUT OF RANGE REFERENCE UNITS LAB L501.4010 <0.045 ng/mL High 0.283 TROPONIN-I Result Comment: TROPONIN-I EXPECTED VALUES <0.045 Negative 0.045 - 0.590 Consistent with Cardiac Damage > OR = 0.600 Critical Value Not every elevated troponin is indicative of [place]. These values should be used with clinical judgement in examining the patient's clinical picture for diagnosis. To establish a diagnosis of [place] versus myocardial injury, there must be a demonstrated rise and/or fall in the troponin values, in addition to ischemic symptoms, EKG changes, new regional wall motion abnormality, and/or angiographical evidence. PLEASE NOTE: REFERENCE RANGES EDITED 17 Performed By: #### L501.4010, L501.5200 #### [facility] [address], [address] BEDSIDE GLUCOSE Collected: 07/01/2018 Status: F Source: [place] 5:21 PM [facility] [place] REPOSITORY TYPE CODE TESTS RESULT OUT OF REFERENCE UNITS RANGE LAB L501.080 70-110 mg/dL High BEDSIDE GLU 216 Result Comment: MANAGEMENT OF PATIENT CARE PER NURSING PROTOCOL Performed By: #### L501.080 #### [facility] Point of Care [address] [place] [address] HISTORY AND PHYSICAL Observed: 07/01/2018 Status: F Source: [place] EXAM 2:58 PM [facility] [place] REPOSITORY [facility] Medical Records Department [address] [place] [address] History and Physical 07/01/18 1407 MR#: [id number] Acct: [id number] Name: KOURTNEY REZA Rep #: [id number] : 1975 42 From: Rivka Charles PCP: Ric Mccrary MD Status: ADM AIDEN Y Location: [place] [address] Problem List (1) Chest pain Status: Acute Qualifiers: Chest pain type: precordial pain Qualified Code(s): R07.2 - Precordial pain (2) CAD (coronary artery disease) Status: Chronic Qualifiers: Coronary Disease-Associated Artery/Lesion type: ute artery Koi vs. transplanted heart: ute heart (3) Atherosclerotic heart disease of ute coronary artery without angina pectoris Status: Chronic Qualifiers: Koi vs. transplanted heart: unspecified whether ute or transplanted heart Qualified Code(s): I25.10 - Atherosclerotic heart disease of ute coronary artery without angina pectoris Comment: S/P PTCA/VIKY to mid LAD in February 2018 OM #1 noted to be 50%; (4) Migraine Status: Resolved Qualifiers: Migraine type: unspecified Status migrainosus presence: without status migrainosus Intractability: not intractable Qualified Code(s): G43.909 - Migraine, unspecified, not intractable, without status migrainosus (5) ESRD (end stage renal disease) on dialysis Status: Chronic (6) Anemia, chronic disease Status: Chronic (7) GABRIEL (obstructive sleep apnea) Status: Chronic (8) Depression Status: Chronic Qualifiers: Depression Type: unspecified Qualified Code(s): F32.9 - Major depressive disorder, single episode, unspecified (9) Anxiety Status: Chronic (10) HTN (hypertension) Status: Chronic Qualifiers: Hypertension type: essential hypertension Qualified Code(s): I10 - Essential (primary) hypertension (11) Nonischemic cardiomyopathy Status: Resolved (12) S/P repair of PDA (patent ductus arteriosus) Status: Resolved Comment: At young age (13) Diabetes mellitus type 1 Status: Chronic Qualifiers: Diabetes mellitus complication status: with unspecified complications Qualified Code(s): E10.8 - Type 1 diabetes mellitus with unspecified complications (14) Hyperlipidemia Status: Chronic Qualifiers: Hyperlipidemia type: unspecified Qualified Code(s): E78.5 - Hyperlipidemia, unspecified (15) Obesity (BMI 30.0-34.9) Status: Chronic (16) Gastroparesis Status: Chronic History of Present Illness Date of Admission: 07/01/18 Chief Complaint: Recent URI/congestion, Chest pain/tightness onset The patient is a 42 y/o F w/ PMHx: ESRD on HD T//Mon, Diabetes mellitus type II w/ Neuropathy and Gastroparesis, HTN, HLD, Tobacco use, Obesity, LV Diastolic Dysfx, Systolic CHF/Cardiomyopathy Unclear type, CAD s/p 2012 catheterization w/ mild LAD disease w/ medical therapy and 02/24/2018 catheterization w/ VIKY to LAD w/ medical management decision for mid obtuse marginal stenosis w/ follow-up dobutamine stress testing 04/17/18 which was negative for inducible ischemia, Anxiety and Depression, AOCD/Fe deficiency anemia, Tobacco use with recent URI symptoms, congestion, seen in the ED on 06/29/18 at [facility] w/ history of missing her dialysis secondary to feeling poorly with noted 4-day history of mildly productive cough of yellow sputum with concurrent mild dyspnea reporting a fever of up to 102 at home with additionally nausea in addition to fall noted to have slipped on the ice with ongoing mild lumbar back discomfort discharged to home with recommendation to follow- up with dialysis and actually have her dialysis performed in addition to URI as well as lumbar contusion secondary to recent fall prior w/ chest x-ray with mild overload consistent with missing dialysis otherwise no acute findings who now represents to the [facility] on 07/01/18 as direct transfer from [facility] ED secondary to worsening symptoms and onset, intermittent, waxing and waning, non-radiating, generalized chest tightness with the noted symptoms including mild dyspnea. ED presentation at OSH, rated chest tightness /10-->resolved upon conversation with ED physician prior to transfer. Additional OSH ED evaluation w/ VS: T 36.8, BP 130/84, HR 94, RR 18, 93% on RA, CBC w/ WBC 6.3, Hgb 9.9, Plts 153 with mild L shift, BMP w/ Na 139, K 4.3, BUN/Cr 30/5.86, glucose 127, Trop 0.331 (higher than ever noted prior), EKG w/ T wave inversions inferiorly 2-3, aVF, more pronounced from prior, inverted T waves V5-6, CXR stable, unchanged from prior, Rapid Influenza: Negative. In the OSH ED patient administered Duoneb, ASA 160 mg x 1. Past Medical History Past Medical History (Chronic Problems): Chronic Problems (Last Updated 02/27/18 @ 10:29 by Pricila Olson) CAD (coronary artery disease) (Chronic) Stented coronary artery (Chronic 02/26/18) FFR of LAD 0.82; VIKY of mid LAD with 2.5 X 24 mm Promus Synergy, OM <50% stenosis per Dr. 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) S/P PTCA/VIKY to mid LAD in February 2018 OM #1 noted to be 50%; ESRD (end stage renal disease) on dialysis (Chronic) Decubitus ulcer, stage III (Chronic) Anemia, chronic disease (Chronic) Pilonidal cyst with abscess (Chronic) GABRIEL (obstructive sleep apnea) (Chronic) Depression (Chronic) Anxiety (Chronic) HTN (hypertension) (Chronic) Diabetes mellitus type 1 (Chronic) Hyperlipidemia (Chronic) Obesity (BMI 30.0-34.9) (Chronic) Gastroparesis (Chronic) Medical History: Medical History (Last Updated 02/27/18 @ 10:29 by Pricila Olson) 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) I25.10 S/P PTCA/VIKY to mid LAD in February 2018 OM #1 noted to be 50%; ESRD (end stage renal disease) on dialysis (Chronic) N18.6, Z99.2 Decubitus ulcer, stage III (Chronic) L89.93 Anemia, chronic disease (Chronic) D63.8 Pilonidal cyst with abscess (Chronic) L05.01 GABRIEL (obstructive sleep apnea) (Chronic) G47.33 HTN (hypertension) (Chronic) I10 Nonischemic cardiomyopathy (Resolved) I42.8 Diabetes mellitus type 1 (Chronic) Hyperlipidemia (Chronic) E78.5 Obesity (BMI 30.0-34.9) (Chronic) E66.9 Gastroparesis (Chronic) K31.84 Allergies latex Allergy (Verified 06/29/18 14:21) Rash prochlorperazine [From Compazine] Allergy (Verified 06/29/18 14:21) Unknown levofloxacin [From Levaquin] Adverse Reaction (Verified 06/29/18 14:21) PT CAN'T REMEMBER PT CAN'T REMEMBER metoclopramide HCl [From Reglan] Adverse Reaction (Verified 06/29/18 14:21) Nausea NSAIDS (Non-Steroidal Anti-Inflamma Adverse Reaction (Verified 06/29/18 14:21) kidney function oxycodone HCl [From Percocet] Adverse Reaction (Verified 06/29/18 14:21) HALLUCINATIONS Home Medications: Ambulatory Orders Medication Instructions Recorded Aspirin [Aspirin, Baby] 81 mg PO DAILY@0800 01/26/16 Calcium Acetate [Phoslo Gel Cap] 1,334 mg PO TIDCM 01/26/16 Surgical History: Surgical History (Last Updated 02/27/18 @ 10:29 by Pricila Olson) Stented coronary artery (Chronic) Onset Date: 02/26/18 Z95.5 FFR of LAD 0.82; VIKY of mid LAD with 2.5 X 24 mm Promus Synergy, OM <50% stenosis per Dr. Underwood @ [facility] S/P repair of PDA (patent ductus arteriosus) (Resolved) Z98.890, Z87.74 At young age Surgical History: appendectomy, hysterectomy - and BSO, - - c-sections, L breast I+D for abscess, fistula placement LUE, L ankle surgery, appendectomy, PDA repair. Excision pilonidal cyst ulcer about 4 years ago. Colostomy placed due to rectal abscess/wound, patent ductus repair, drug-eluting stent placement left anterior descending coronary artery February 2018. Psychiatric History: Anxiety, Depression [employer] SOFTWARE [employer] History: No pertinent [employer] SOFTWARE [employer]ANT history Lives: Alone Smoking Status: Current some day smoker - 1/2 ppd tobacco cigarette usage ongoing. Tobacco Use: Cigarettes Alcohol: None Drugs: None - *Family History Maternal History Items: Cancer, COPD, Diabetes, Hypertension, Renal Disease, Stroke Paternal History Items: Diabetes Sibling History Items: Cancer, Diabetes Review of Systems Constitutional: Reports: Anorexia, Malaise, Weakness, Fatigue. Denies: Chills, Fever, Weight Change HEENT: Reports: Post Nasal Drip, Sinus Congestion, Sinus Drainage, Sore Throat. Denies: Head Aches Cardiovascular: Reports: Chest Pain, Chest Tightness. Denies: Palpitations Respiratory: Reports: Cough, Shortness of Breath, Shortness of breath at rest, Shortness of breath upon exertion, Sputum production Gastrointestinal: Denies: Abdominal Pain, Nausea, Vomiting Genitourinary: Denies: Dysuria Musculoskeletal: Reports: Back Pain. Denies: Joint Pain, Joint Tenderness Skin: Denies: Rash, Wounds Neurological: Denies: Focal weakness, Numbness, Tingling Psychiatric: Reports: Anxiety, Depression. Denies: Homicidal Ideations, Suicidal Ideations Hematologic/ Lymphatic: Reports: Anemia, Easy Bruising, Easy Bleeding VTE Information - Inpt Only VTE Present on Admission: No VTE Mechan Device Prophylaxis: SCD's VTE Pharm Prophylaxis ordered?: Yes Subjective: Seated upright in the bed, fatigued appearance, hoarse voice. Objective: Physical Examination: General: awake, alert, oriented x 3 and cooperative, seated upright in bed in no apparent distress, fatigued appearance. Skin: normal color, turgor, no icterus, cyanosis. HEENT: AT/NC, EOMI, PERRLA, mildly dry MM, no carotid bruits or JVD noted. Lungs: Diminished BS, > bases, mild effort, hoarse voice, harsh coughing, no rales, ronchi or wheezing. Heart: Regular rate and rhythm; no gallop, rub audible, reproducible chest discomfort, also patient notes worse with coughing fits. Abdomen: soft, obese, NTTP, ND, normal BS, no HSM. Extremities: no cyanosis, clubbing, or edema, AVF + thrill, TTP lumbar BL paraspinous muscles. Neurological: patient awake, alert, oriented x 3; cognitive function intact; pupils equally reactive to light and accomodation; cranial nerves II-XII grossly normal, moving all 4 extremities, no focal deficits, strength moderately globally decreased. Psychiatric: affect appears fatigued, flat, no acute evidence of depressive or anxiety feelings. - Physical Exam Body Mass Index (BMI) 32.7 Finger Stick Blood Glucose 118 Assessment/Plan All Active Problems (Last Updated 02/27/18 @ 10:29 by Pricila Olson) Nausea AND vomiting (Resolved) Migraine (Resolved) Metabolic encephalopathy (Resolved) Chest pain (Acute) Tooth abscess (Resolved) Intractable nausea and vomiting (Resolved) Pneumonia (Resolved) Pulmonary edema (Resolved) Hyperkalemia (Resolved) Atypical chest pain (Resolved) Acute hypoxic respiratory failure (Resolved) Pulmonary edema (Resolved) Clostridium difficile enterocolitis (Resolved) Necrotizing myositis (Resolved) Nonischemic cardiomyopathy (Resolved) S/P repair of PDA (patent ductus arteriosus) (Resolved) Dysmenorrhea (Resolved) Hx of necrotizing fascIItis (Resolved) Iron deficiency anemia due to chronic blood loss (Resolved) Systolic congestive heart failure (Resolved) The patient is a 42 y/o F w/ PMHx: ESRD on HD T//Mon, Diabetes mellitus type II w/ Neuropathy and Gastroparesis, HTN, HLD, Tobacco use, Obesity, LV Diastolic Dysfx, Systolic CHF/Cardiomyopathy Unclear type, CAD s/p 2012 catheterization w/ mild LAD disease w/ medical therapy and 02/24/2018 catheterization w/ VIKY to LAD w/ medical management decision for mid obtuse marginal stenosis w/ follow-up dobutamine stress testing 04/17/18 which was negative for inducible ischemia, Anxiety and Depression, AOCD/Fe deficiency anemia, Tobacco use with recent URI symptoms, congestion, seen in the ED on 06/29/18 at [facility] w/ history of missing her dialysis secondary to feeling poorly with noted 4-day history of mildly productive cough of yellow sputum with concurrent mild dyspnea reporting a fever of up to 102 at home with additionally nausea in addition to fall noted to have slipped on the ice with ongoing mild lumbar back discomfort discharged to home with recommendation to follow- up with dialysis and actually have her dialysis performed in addition to URI as well as lumbar contusion secondary to recent fall prior w/ chest x-ray with mild overload consistent with missing dialysis otherwise no acute findings who now represents to the [facility] on 07/01/18 as direct transfer from [facility] ED secondary to worsening symptoms and onset, intermittent, waxing and waning, non-radiating, generalized chest tightness with the noted symptoms including mild dyspnea. (1) Chest Pain w/ indeterminate cardiac enzymes: Presentation w/ noted worsened discomfort with coughing but enzyme above noted prior enzymes. OSH ED evaluation w/ VS: T 36.8, BP 130/84, HR 94, RR 18, 93% on RA, CBC w/ WBC 6.3, Hgb 9.9, Plts 153 with mild L shift, BMP w/ Na 139, K 4.3, BUN/Cr 30/5.86, glucose 127, Trop 0.331 (higher than ever noted prior), EKG w/ T wave inversions inferiorly 2-3, aVF, more pronounced from prior, inverted T waves V5-6, CXR stable, unchanged from prior, Rapid Influenza: Negative.Will admit to PCU, place on a monitored bed to assure no acute myocardial infarction with serial cardiac enzymes and EKGs. ECHO requested. Mag pending. Cardiology consulted, pending, may decide on trending only. ASA, plavix, NG, morphine. (2) Recent URI, Bronchitis: Maintain on oxygen with wean as tolerated to room air, continue ATC duonebs, PRN albuterol, HOB, IS parameters, obtain viral respiratory panel. Supportive care. (3) CAD: s/p 2012 catheterization w/ mild LAD disease w/ medical therapy and 02/24/2018 catheterization w/ VIKY to LAD w/ medical management decision for mid obtuse marginal stenosis w/ follow-up dobutamine stress testing 04/17/18 which was negative for inducible ischemia, continue home regimen asa, plavix, statin, BB. (4) ESRD on HD: T, Th, Sat. Noted to have most recently been on day of presentation. Will consult Nephrology as possible catheterization which would require HD following. (5) Chronic systolic CHF, Cardiomyopathy Unclear Type, Diastolic DysFx, CAD: EF 45-50% w/ 05/2013 normal cardiac catheterization per Dr. Underwood, recent stress testing 04/17/18 which was negative for inducible ischemia, continue asa, BB, ACEI, statin. (6) Diabetes mellitus type II w/ Neuropathy, Gastroparesis: Continue home insulin regimen, ADA diet w/ NPO after midnight in case of cardiology intervention decision, accu checks w/ ISS. (7) Hypertension: Continue home regimen coreg, lisinopril, isosorbide, PRN hydralazine. (8) Hyperlipidemia: Continue home statin regimen. (9) Depression and Anxiety: Continue home Prozac, Xanax regimen. (10) Tobacco Abuse: Encouraged cessation, inpatient consultation per RT, NR if desired. (11) Obesity: Weight loss and lifestyle changes encouraged. (12) GERD: PPI. (13) AOCD: Admission Hgb 9.9, stable, trend. (14) Recent Mechanical Fall w/ Lumbar Strain, Contusion: BL paraspinous lumbar region muscle TTP, recommend position changes frequently, k-pad, conservative measures. (15) DVT Prophylaxis: SCDs, heparin. Code Visit OBSV E AND M: [id number] Initial observation care L3 07/01/18 9938 <Electronically signed by Rivka Charles > Date Rivka Charles Cosigner Signature: Date (if applicable) CC: Rivka Charles; Ric Mccrary MD Signed Observed: 07/01/2018 Status: F Source: [facility] RESPIRATORY PANEL 2:55 PM [facility] MOLECULAR REPOSITORY RP PANEL ADENOVIRUS Not Detected HUMAN METAPHNEUMO Not Detected INFLUENZA A Not Detected INFLUENZA A (SUBTYPE H1) Not Detected INFLUENZA A (SUBTYPE H3) Not Detected INFLUENZA B Not Detected PARAINFLUENZA 1 Not Detected PARAINFLUENZA 2 Not Detected PARAINFLUENZA 3 Not Detected PARAINFLUENZA 4 Not Detected RHINOVIRUS Not Detected RSV A Not Detected RSV B Not Detected NAAT METHOD Testing was performed using nucleic acid amplification Performed By: #### M100.638 #### [facility] [address] [place], [address] MAGNESIUM Collected: 07/01/2018 Status: F Source: [place] 2:40 PM [facility] REPOSITORY Order Comment: 'TROP' Serial specimen #1, #2 or #3: 1 TYPE CODE TESTS RESULT OUT OF RANGE REFERENCE UNITS LAB L501.5200 1.6-2.6 mg/dL Normal MG 2.0 Performed By: #### L501.4010, L501.5200 #### [facility] [address] [place], [address] PHOSPHORUS Collected: 07/01/2018 Status: F Source: [place] 2:40 PM [facility] REPOSITORY TYPE CODE TESTS RESULT OUT OF RANGE REFERENCE UNITS LAB L501.2300 2.5-4.9 mg/dL High PHOS 5.9 Performed By: #### L501.2300 #### [facility] [address] [place], [address] XR CHEST 2 VIEWS Observed: 07/01/2018 Status: F Source: [employer] 11:13 AM [facility] REPOSITORY ORIGINAL XR CHEST 2 VIEWS CLINICAL STATEMENT: SOB/Cough/Fever. COMPARISON: 06/18/2018. FINDINGS: Heart is not enlarged. There is a indistinct cardiac contour with early pulmonary vascular cephalization and veiling of the lower lobe vessels. The appearance is similar to prior assessment. There is no significant pleural effusion, pneumothorax or lobar consolidation. Skeletal elements remain intact. IMPRESSION: 1. Persistent bilateral pulmonary vascular prominence, unchanged from prior exam. Etiology is not determined. Interpreted By: Zach Rosado DO Preliminary Report By: Zach Rosado DO Electronically Signed By: Zach Rosado DO Dictated Date: 07/01/2018 11:52:04 AM Prelim Date: 07/01/2018 11:52:04 AM Sign Date: 07/01/2018 11:54:01 AM CBC Collected: 07/01/2018 Status: F Source: [employer] 10:52 AM [facility] REPOSITORY TYPE CODE TESTS RESULT OUT OF REFERENCE UNITS RANGE LAB WBC(LOINC) 4.60-10.80 10 3/mcL WBC 6.30 LAB RBCCT(LOINC 4.20-5.40 10 6/mcL ) Low RBC 3.14 LAB HGB(LOINC) 12.0-16.0 G/dL Low Hgb 9.9 LAB HCT(LOINC) 37.0-47.0 % Low Hct 31.0 LAB MCV(LOINC) 80.0-94.0 fL High MCV 98.5 LAB MCH(LOINC) 27.0-31.2 pg High MCH 31.4 LAB MCHC(LOINC) 33.0-37.0 G/dL Low MCHC 31.8 LAB RDW(LOINC) 11.5-14.5 % High RDW 18.9 LAB PLT(LOINC) 130-400 10 3/mcL Platelet 153 LAB MPV(LOINC) 7.4-10.4 fL Low MPV 7.1 Performed By: #### CBC, ADIFF, ANEU #### [address] [address] #### TROP, BMP, GFR #### [place] [address] .AUTO DIFF Collected: 07/01/2018 Status: F Source: [facility] 10:52 AM [facility] REPOSITORY TYPE CODE TESTS RESULT OUT OF REFERENCE UNITS RANGE LAB GALINA(LOINC) 37.0-80.0 % High Neutrophil % 81.0 LAB LYM(LOINC) 10.0-50.0 % Lymphocyte % 11.2 LAB MON(LOINC) 1.7-13.0 % Monocyte % 4.2 LAB EO(LOINC) 0.0-7.0 % Eosinophil % 3.1 LAB BAS(LOINC) 0.0-2.5 % Basophil % 0.5 LAB ABLYM(LOIN 0.77-3.85 10 3/mcL C) Low Lymphocyte, 0.70 Absolute LAB WILLIAM(LOINC 0.15-1.00 10 3/mcL ) Monocyte, 0.30 Absolute LAB AEOS(LOINC 0.00-0.40 10 3/mcL ) Eosinophil, 0.20 Absolute LAB ABAS(LOINC 0.00-0.19 10 3/mcL ) Basophil, 0.00 Absolute Performed By: #### CBC, ADIFF, ANEU #### [place] [id number] #### TROP, BMP, GFR #### [place] [address] .NEUABS Collected: 07/01/2018 Status: F Source: [facility] 10:52 AM [facility] REPOSITORY TYPE CODE TESTS RESULT OUT OF REFERENCE UNITS RANGE LAB ANEU(LOINC) 2.85-6.16 10 3/mcL Neutrophil, 5.10 Absolute Performed By: #### CBC, ADIFF, ANEU #### [place] [address] #### TROP, BMP, GFR #### [place] [address] TROP Collected: 07/01/2018 Status: F Source: [facility] 10:52 AM [facility] REPOSITORY TYPE CODE TESTS RESULT OUT OF RANGE REFERENCE UNITS LAB TROP(LOINC 0.000-0.040 ng/mL ) Abnormal Alert Troponin 0.331 Result Comment: Troponin I reference range: 0.00-0.040 ng/mL Negative and non-diagnostic. >0.040 ng/mL Consistent with cardiac damage, increased clinical risk and possibility of myocardial infarction. Serial measurements, a rise & fall in test results, clinical history, appropriate symptoms and/or ECG changes may help assess possibility of [place]. *Other non-acute coronary syndrome conditions such as CHF, myocarditis, pulmonary emboli, sepsis and cardiac surgery could result in myocardial damage and increased troponin levels. Performed By: #### CBC, ADIFF, ANEU #### [place] [id number] #### TROP, BMP, GFR #### [place] [address] BMP Collected: 07/01/2018 Status: F Source: [facility] 10:52 AM [facility] REPOSITORY TYPE CODE TESTS RESULT OUT OF REFERENCE UNITS RANGE LAB GLU(LOINC) 70-105 mg/dL Glucose High Level 127 LAB NA(LOINC) 136-145 mmol/L Sodium Level 139 LAB K(LOINC) 3.5-5.1 mmol/L Potassium Level 4.3 LAB CL(LOINC) 98-107 mmol/L Low Chloride 97 LAB CO2(LOINC) 22-29 mmol/L CO2 High 31 LAB EBAL(LOINC mEq/L ) Electrolyte Balance 11.0 LAB BUN(LOINC) 7-18 mg/dL BUN High 30 LAB CRE(LOINC) 0.55-1.02 mg/dL Creatinine High Lvl (s) 5.86 LAB BC(LOINC) 7-27 ratio Low BUN/Creatinine 5 Ratio LAB CA(LOINC) 8.4-10.2 mg/dL Calcium Lvl 8.4 Performed By: #### CBC, ADIFF, ANEU #### [facility] [address] [place], [place] [address] #### TROP, BMP, GFR #### [address] [address] .GFR Collected: 07/01/2018 Status: F Source: [facility] 10:52 AM [facility] REPOSITORY TYPE CODE TESTS RESULT OUT OF REFERENCE UNITS RANGE LAB GFRAA(LOINC ml/min/1.73 ) sqm GFR 9 Lao Result Comment: GFR Population mean for , Non- Americans Ages 20-29 = 116 mL/min/1.73 sq.m. Ages 30-39 = 107 mL/min/1.73 sq.m. Ages 40-49 = 99 mL/min/1.73 sq.m. Ages 50-59 = 93 mL/min/1.73 sq.m. Ages 60-69 = 85 mL/min/1.73 sq.m. Ages 70+ = 75 mL/min/1.73 sq.m. Chronic Kidney Disease: Less than 60 mL/min/1.73 square meters End Stage Renal Disease: Less than 15 mL/min/1.73 square meters LAB GFRNO(LOINC) ml/min/1.73sqm GFR Non- 8 Result Comment: GFR Population mean for , Non- Americans Ages 20-29 = 116 mL/min/1.73 sq.m. Ages 30-39 = 107 mL/min/1.73 sq.m. Ages 40-49 = 99 mL/min/1.73 sq.m. Ages 50-59 = 93 mL/min/1.73 sq.m. Ages 60-69 = 85 mL/min/1.73 sq.m. Ages 70+ = 75 mL/min/1.73 sq.m. Chronic Kidney Disease: Less than 60 mL/min/1.73 square meters End Stage Renal Disease: Less than 15 mL/min/1.73 square meters Performed By: #### CBC, ADIFF, ANEU #### [address] [address] #### TROP, BMP, GFR #### [address] [address] Observed: 07/01/2018 Status: F Source: [facility] 10:52 AM [facility] REPOSITORY . MICRO - Microbiology PROCEDURE: Rapid Influenza A+B Screen w Cult if Ind [*1] SOURCE: Nares BODY SITE: COLLECTED DATE/TIME: 07/01/2018 10:52 EST RECEIVED DATE/TIME: 07/01/2018 11:05 EST START DATE/TIME: 07/01/2018 11:05 EST FREE TEXT SOURCE: FINAL REPORTS Final Report [] Verified Date/Time/Personnel: 07/01/2018 11:31 EST Specimen is negative for the presence of influenza A antigen. . Specimen is negative for the presence of influenza B antigen. . Inadequate specimen collection, improper sample handling and/or low levels of viral shedding may yield a false-negative result. . The optimal specimen type for the Rapid Flu test is a nasopharyngeal wash/aspirate or nasopharyngeal swab. All negative rapid tests for Flu A and Flu B will be confirmed with a Respiratory Id Panel by PCR. . Assay method employs immunofluorescence technology. Performing Locations *1: This test was performed at: [address], [address] [place] [address] Performed By: #### RFLU #### [address] [address] RESPID Collected: 07/01/2018 Status: F Source: [facility] 10:47 AM [facility] REPOSITORY Order Comment: Order added by [id number] TYPE CODE TESTS RESULT OUT OF REFERENCE UNITS RANGE LAB RESADENO( Not Detected LOINC) Adenovirus Not Detected LAB COVHKU1(L Not Detected OINC) Coronavirus HKU1 Not Detected LAB COVNL63(L Not Detected OINC) Coronavirus NL63 Not Detected LAB OnD534S(L Not Detected OINC) Coronavirus 229E Not Detected LAB COVOC43(L Not Detected OINC) Coronavirus OC43 Not Detected LAB HMV(LOINC Not Detected ) Human Metapneumovirus Not Detected LAB INFA(LOIN Not Detected C) Influenza A Not Detected LAB INFAB(GUILLERMINA Not Detected NC) Influenza B Not Detected LAB PARAFLU1( Not Detected LOINC) Parainfluenza 1 Not Detected LAB PARAFLU2( Not Detected LOINC) Parainfluenza 2 Not Detected LAB PARAFLU3( Not Detected LOINC) Parainfluenza 3 Not Detected LAB PARAFLU4( Not Detected LOINC) Parainfluenza 4 Not Detected LAB RHINO(GUILLERMINA Not Detected NC) Rhinovirus/Enterovir us Not Detected LAB RESRSV(LO Not Detected INC) Respiratory Syncytial Virus Not Detected LAB RESMYCO(L Not Detected OINC) Mycoplasma pneumoniae Not Detected LAB RESCHLAM( Not Detected LOINC) Chlamydophila pneumoniae Not Detected LAB RESBORD(L Not Detected OINC) Bordetella Pertussis Not Detected LAB RESBPAR(L Not Detected OINC) Bordetella Parapertussis Not Detected Performed By: #### RESPID #### [place] [address] EMERGENCY DEPARTMENT Observed: 06/29/2018 Status: F Source: [place] SUMMARY 4:30 PM [facility] REPOSITORY [facility] Medical Records Department [address] [place] [address] Emergency Department Summary 06/29/18 1448 MR#: [id number] Acct: [id number] Name: KOURTNEY REZA Rep #: [id number] : 1975 42 From: Matt Andersen MD PCP: Ric Mccrary MD Status: REG ER - ER Visit Summary Date of Service: 06/29/18 Chief Complaint: Cough History of Present Illness: The patient is a 42 F of CHF, and cement diabetes, hypertension, end-stage renal disease dialysis. Patient is supposed to be dialyzed Monday. Yesterday she was not feeling well and missed her dialysis. She is had also prior patent ductus arteriosus surgery as a child. She states that for the last 4 days she has had a productive cough of yellowish sputum. No hemoptysis. Has complained of mild shortness of breath. She states that she has had a fever as high as 102 at home. Also nausea and diarrhea. Today she states she also slipped on the ice and when she fell she injured her lower back. Physical Examination: Middle-aged female. No acute distress. Vital signs are stable. Pulse ox 93% on room air. Afebrile. She does not look septic or toxic. HEENT she has no acute antibody. Moist his members. Neck nontender. No JVD. No lymphadenopathy. Lungs clear to auscultation bilaterally. Dry cough. No rales or rhonchi. Heart regular rhythm rate about 100. No murmur appreciated. Abdomen soft. Nondistended. Normal bowel sounds. No peritoneal signs. She does have an ostomy that has loose liquid stool in it. Patient is moving all 4 extremities. She has left forearm dialysis fistula is that have a good thrill. Neurologically she is awake. She has no focal motor or sensory deficits. Test Results: CBC White count 6. Hemoglobin 9.7 which is her baseline chronic anemia. Electrolytes unremarkable BUN of 45. Creatinine 7.5 again is a history of chronic renal failure. Gap of 12. Glucose 190. Chest x-ray shows mild congestive heart failure with vascular congestion but otherwise is Emergency Department Course and Treatment: Patient will be given [place] for pain because she fell on the ice and is complaining of low back pain. Treatment Plan: Repeat exam patient is doing well. She will be discharged to home. I strongly encourage her to make her dialysis treatment tomorrow. Since she missed on . Disposition: discharge Impression: URI Pulmonary edema End-stage renal disease missed last dialysis Fall with lumbar contusion This note was generated with [employer] dictation software. It may contain incorrect words, spelling, and punctuation that were not noted in review of the chart prior to signing ED Disposition - Plan for ED Patient: Chief Complaint: Shortness of Breath Referrals: Ric Mccrary MD [Primary Care Provider] - What to do if you have Problems For any increased pain, shortness of breath, bleeding, nausea or vomiting, chest pain, or any unexpected problems, contact your Primary Care Provider. Call [facility] ([phone]) or report to the closest Emergency Room. Call 911 if necessary. 12/07/18 1630 <Electronically signed by Matt Andersen MD> Date Matt Andersen MD Cosigner Signature (If Indicated): Date CC: Ric Mccrary MD DISCHARGE INSTRUCTION Observed: 06/29/2018 Status: F Source: [facility] 4:30 PM [facility] REPOSITORY [facility] Medical Records Department [address] [place] [address] Discharge Instruction 06/29/18 1617 MR#: [id number] Acct: [id number] Name: KOURTNEY REZA Rep #: [id number] : 1975 42 From: Matt Andersen MD PCP: Ric Mccrary MD Status: REG ER ED Disposition - Plan for ED Patient: Disposition: Home or Assisted Living Chief Complaint: Shortness of Breath Instructions: ED Upper Resp Infec No Abx Tx Referrals: Ric Mccrary MD [Primary Care Provider] - As Needed Additional Instructions: Absolutely positively make sure that you make her dialysis to him in tomorrow. You have fluid collecting in your lungs and not only get worse if you do not get dialyzed tomorrow. Follow-up with your doctor as needed. Return to the ER feeling worse. What to do if you have Problems For any increased pain, shortness of breath, bleeding, nausea or vomiting, chest pain, or any unexpected problems, contact your Primary Care Provider. Call [facility] ([phone]) or report to the closest Emergency Room. Call 911 if necessary. 06/29/181629 <Electronically signed by Matt Andersen MD> Date Matt Andersen MD Cosigner Signature (If Indicated): Date CC: Ric Mccrary MD CBC W/DIFF, AUTOMATED Collected: 06/29/2018 Status: F Source: [facility] 2:55 PM [facility] REPOSITORY TYPE CODE TESTS RESULT OUT OF RANGE REFERENCE UNITS LAB L100.1000 4.4-11.0 K/mm3 Normal WBC 6.1 LAB L100.1200 4.2-5.4 M/mm3 Low RBC 3.18 LAB L100.1300 12.0-15.0 g/dl Low HGB 9.7 LAB L100.1400 37-47 % Low HCT 31.9 LAB L100.1500 81-99 fL High MCV 100.3 LAB L100.1600 27.0-32.0 pg Normal MCH 30.5 LAB L100.1700 32-36 g/gl Low MCHC 30.4 LAB L100.1810 11.6-14.6 % High RDW CV 17.7 LAB L100.1820 35.1-43.9 fl High RDW SD 64.0 LAB L100.1900 150-450 K/mm3 Low PLT 135 LAB L100.2000 6.2-12.0 fl Normal MPV 8.9 LAB L100.2100 47-70 % High NEUT% 83.3 LAB L100.2200 19-41 % Low LY% 10.3 LAB L100.2300 0-10 % Normal MONO% 3.4 LAB L100.2400 0-5 % Normal EO% 2.6 LAB L100.2500 0-1 % Normal BASO% 0.2 LAB L100.2550 0.0-0.9 % Normal IM GRAN % 0.200 Result Comment: IG% - Immature Granulocytes (promyelocytes, myelocytes and metamyelocytes) > 1% indicates that a LEFT SHIFT is Present. LAB L100.2620 2.0-7.7 X10 3/uL Normal Absolute Neut 5.1 LAB L100.2720 0.83-4.51 X10 3/ul Low Absolute Lymph 0.63 Performed By: #### L100.0100 #### [facility] [address] [place], [place], [id number] BASIC METABOLIC Collected: 06/29/2018 Status: F Source: [facility] PROFILE (BMP) 2:55 PM [facility] REPOSITORY TYPE CODE TESTS RESULT OUT OF RANGE REFERENCE UNITS LAB L501.0100 74-106 mg/dL High GLU 190 Result Comment: Fasting Glucose result greater than or equal to 126 mg/dL suggests DIABETES MELLITUS per A.D.A. criteria. Please note revised GLUCOSE reference range effective 2017. LAB L501.1000 7-18 mg/dL High BUN 45 LAB L501.1100 0.55-1.02 mg/dL High alert CREAT,SERUM 7.92 Result Comment: Critical Result(s) Called at: 15:26:42 06/29/2018 by: ESTEBAN COLLINS IN ED The validity of the calculated GFR AND GFRAA in patients over 70 years has not been determined. Clinical correlation is essential. LAB L501.1110 >60 mL/min Low EST GFR 6 Result Comment: Non- GFR Calc LAB L501.1115 >60 mL/min Low EST GFR - AA 7 Result Comment: GFR Calc LAB L501.1255 ml/min Normal Estimated CRCL 8.49 LAB L501.1300 10-20 RATIO Low BUN/CRE 5.7 LAB L501.2200 8.5-10. mg/dL Low 1 CA 8.4 LAB L501.5300 136-145 mmol/L Normal NA 138 LAB L501.5600 3.5-5.1 mmol/L Normal K 4.1 LAB L501.5900 98-107 mmol/L Normal CL 101 LAB L501.6100 21.0-32 mmol/L Normal .0 CO2 25.0 LAB L501.6200 5-15 Normal GAP 12 Performed By: #### L500.2500 #### [facility] [address] [place], [address] CHEST PA AND LATERAL Observed: 06/29/2018 Status: F Source: [facility] 2:47 PM [facility] REPOSITORY [facility] Imaging Services [address] [place] [address] Chest PA and Lateral MR#: [id number] Acct: [id number] Name: KOURTNEY REZA Rep #: [id number] : 1975 F 42 From: Josh Hill MD PCP: Ric Mccrary MD Status: REG ER Study: Chest PA and Lateral Date of Exam: 06/29/18 Exam# [id number] Ordering Dr: Matt Andersen MD STUDY: X-RAY CHEST REASON FOR EXAM: Female, 42 years old. Cough. Shortness of breath. TECHNIQUE: PA and lateral views of the chest. COMPARISON: Comparison is made with prior study dated May 29, 2018. FINDINGS: Since prior study, there has been improved aeration of both lungs. Residual bilateral infiltrates with blunting of both costophrenic angles. I suspect an element of the CHF as well. There is mild cardiac enlargement. Normal mediastinum and latrell. Normal visualized pulmonary arteries. Normal visualized aortic arch and descending thoracic aorta. There is straightening of the normal kyphosis of the thoracic spine. Normal visualized ribs, clavicles, and shoulders. There is no demonstrated abnormality of the visualized soft tissue structures of the upper abdomen. RAD/Chest PA and Lateral IMPRESSION: Improved aeration of both lungs as compared to prior study. Residual changes persist with blunting of both costophrenic angles worse on the right side. I suspect an element of CHF as well. Electronically Signed: Josh Hill MD at 15:41 EST Tel [phone], Service support , CC: Matt Andersen MD; Ric Mccrary MD Tester Operator Helper: Signed XR CHEST 1 VIEW Observed: 06/18/2018 Status: F Source: [facility] 9:50 PM [facility] REPOSITORY ORIGINAL XR CHEST 1 VIEW CLINICAL STATEMENT: Chest pain, chest tightness COMPARISON: 06/03/2018 FINDINGS: The cardiomediastinal silhouette is unchanged. Vascular congestion is suspected. There is increased attenuation noted at the lung bases. No pleural effusion, or pneumothorax. No acute osseous abnormality. Chronic LEFT rib deformities are noted. IMPRESSION: Mild CHF. I have personally reviewed the images of this examination and agree with the resident's findings and interpretation. Interpreted By: Pio Mukherjee Preliminary Report By: Chelsea Ornelas MD Electronically Signed By: Pio Mukherjee Dictated Date: 06/18/2018 10:17:41 PM Prelim Date: 06/18/2018 10:21:22 PM Sign Date: 06/18/2018 11:02:46 PM CBC Collected: 06/18/2018 Status: F Source: [facility] 9:29 PM [facility] REPOSITORY TYPE CODE TESTS RESULT OUT OF REFERENCE UNITS RANGE LAB WBC(LOINC) 4.60-10.80 10 3/mcL WBC 6.40 LAB RBCCT(LOINC 4.20-5.40 10 6/mcL ) Low RBC 3.23 LAB HGB(LOINC) 12.0-16.0 G/dL Low Hgb 10.0 LAB HCT(LOINC) 37.0-47.0 % Low Hct 31.8 LAB MCV(LOINC) 80.0-94.0 fL High MCV 98.2 LAB MCH(LOINC) 27.0-31.2 pg MCH 31.0 LAB MCHC(LOINC) 33.0-37.0 G/dL Low MCHC 31.6 LAB RDW(LOINC) 11.5-14.5 % High RDW 20.0 LAB PLT(LOINC) 130-400 10 3/mcL Platelet 186 LAB MPV(LOINC) 7.4-10.4 fL Low MPV 7.0 Performed By: #### CBC, ADIFF, ANEU #### [address] [address] #### BMP, GFR, TROP #### [address] [address] .AUTO DIFF Collected: 06/18/2018 Status: F Source: [facility] 9:29 PM [facility] REPOSITORY TYPE CODE TESTS RESULT OUT OF REFERENCE UNITS RANGE LAB GALINA(LOINC) 37.0-80.0 % High Neutrophil % 80.8 LAB LYM(LOINC) 10.0-50.0 % Lymphocyte % 10.0 LAB MON(LOINC) 1.7-13.0 % Monocyte % 3.2 LAB EO(LOINC) 0.0-7.0 % Eosinophil % 4.7 LAB BAS(LOINC) 0.0-2.5 % Basophil % 1.3 LAB ABLYM(LOIN 0.77-3.85 10 3/mcL C) Low Lymphocyte, 0.60 Absolute LAB WILLIAM(LOINC 0.15-1.00 10 3/mcL ) Monocyte, 0.20 Absolute LAB AEOS(LOINC 0.00-0.40 10 3/mcL ) Eosinophil, 0.30 Absolute LAB ABAS(LOINC 0.00-0.19 10 3/mcL ) Basophil, 0.10 Absolute Performed By: #### CBC, ADIFF, ANEU #### [facility] [address] [place], [place] [address] #### BMP, GFR, TROP #### [facility] [address] [place] [address] .NEUABS Collected: 06/18/2018 Status: F Source: [facility] 9:29 [facility] REPOSITORY TYPE CODE TESTS RESULT OUT OF REFERENCE UNITS RANGE LAB ANEU(LOINC) 2.85-6.16 10 3/mcL Neutrophil, 5.20 Absolute Performed By: #### CBC, ADIFF, ANEU #### [facility] [address] [place], [place] [address] #### BMP, GFR, TROP #### [facility] [address] [place] [address] BMP Collected: 06/18/2018 Status: F Source: [facility] 9:29 [facility] REPOSITORY TYPE CODE TESTS RESULT OUT OF REFERENCE UNITS RANGE LAB GLU(LOINC) 70-105 mg/dL High Glucose Level 191 LAB NA(LOINC) 136-145 mmol/L Sodium Level 136 LAB K(LOINC) 3.5-5.1 mmol/L Potassium Level invalid Result Comment: specimen is greatly hemolyzed it will have to be redrawn if a K+ is desired. LAB CL(LOINC) 98-107 mmol/L Chloride 101 LAB CO2(LOINC) 22-29 mmol/L CO2 25 LAB EBAL(LOINC) mEq/L Electrolyte Balance 10.0 LAB BUN(LOINC) 7-18 mg/dL BUN High 67 LAB CRE(LOINC) 0.55-1.02 mg/dL Creatinine High Lvl (s) 7.42 LAB BC(LOINC) 7-27 ratio BUN/Creatinine Ratio 9 LAB CA(LOINC) 8.4-10.2 mg/dL Calcium Lvl 8.5 Performed By: #### CBC, ADIFF, ANEU #### [address] [address] [place], [place] [address] #### BMP, GFR, TROP #### [address] [address] .GFR Collected: 06/18/2018 Status: F Source: [facility] 9:29 PM [facility] REPOSITORY TYPE CODE TESTS RESULT OUT OF REFERENCE UNITS RANGE LAB GFRAA(LOINC ml/min/1.73 ) sqm GFR 7 Lao Result Comment: GFR Population mean for , Non- Americans Ages 20-29 = 116 mL/min/1.73 sq.m. Ages 30-39 = 107 mL/min/1.73 sq.m. Ages 40-49 = 99 mL/min/1.73 sq.m. Ages 50-59 = 93 mL/min/1.73 sq.m. Ages 60-69 = 85 mL/min/1.73 sq.m. Ages 70+ = 75 mL/min/1.73 sq.m. Chronic Kidney Disease: Less than 60 mL/min/1.73 square meters End Stage Renal Disease: Less than 15 mL/min/1.73 square meters LAB GFRNO(LOINC) ml/min/1.73sqm GFR Non- 6 Result Comment: GFR Population mean for , Non- Americans Ages 20-29 = 116 mL/min/1.73 sq.m. Ages 30-39 = 107 mL/min/1.73 sq.m. Ages 40-49 = 99 mL/min/1.73 sq.m. Ages 50-59 = 93 mL/min/1.73 sq.m. Ages 60-69 = 85 mL/min/1.73 sq.m. Ages 70+ = 75 mL/min/1.73 sq.m. Chronic Kidney Disease: Less than 60 mL/min/1.73 square meters End Stage Renal Disease: Less than 15 mL/min/1.73 square meters Performed By: #### CBC, ADIFF, ANEU #### [address] [place], [place] [address] #### BMP, GFR, TROP #### [place] [id number] [place] [address] TROP Collected: 06/18/2018 Status: F Source: [employer] 9:29 PM [facility] REPOSITORY TYPE CODE TESTS RESULT OUT OF REFERENCE UNITS RANGE LAB TROP(LOINC) 0.000-0.040 ng/mL Troponin 0.031 Result Comment: Troponin I reference range: 0.00-0.040 ng/mL Negative and non-diagnostic. >0.040 ng/mL Consistent with cardiac damage, increased clinical risk and possibility of myocardial infarction. Serial measurements, a rise & fall in test results, clinical history, appropriate symptoms and/or ECG changes may help assess possibility of [place]. *Other non-acute coronary syndrome conditions such as CHF, myocarditis, pulmonary emboli, sepsis and cardiac surgery could result in myocardial damage and increased troponin levels. Performed By: #### CBC, ADIFF, ANEU #### [facility] [address] [place], [place] [address] #### BMP, GFR, TROP #### [place] [address] [place] [address] ABDOMEN/PELVIS W/O Observed: 06/03/2018 Status: F Source: [employer] 10:51 PM [facility] REPOSITORY ORIGINAL CT ABDOMEN/PELVIS W/O CONTRAST CLINICAL STATEMENT: abdominal pain, nausea and vomiting COMPARISON: CT abdomen pelvis 12/31/2017 TECHNIQUE: Axial images were obtained from the lung bases through the pubic symphysis. Coronal reformatted images were generated from the axial dataset. This exam was performed according to our [facility] dose optimization program, and includes the following measures where applicable: automated exposure control, adjustment of the mAs and/or kVp according to patient size and/or exam, and an iterative reconstruction algorithm. FINDINGS: Suboptimal evaluation due to patient body habitus. Calcifications the bilateral kidneys are felt to be arterial in nature. The kidneys are symmetric in size and are without hydronephrosis, or perinephric stranding. The ureters are normal. No bladder calculi are visible. There are extensive vascular atherosclerotic calcifications involving the mesenteric and renal vasculature. There are mild atherosclerotic calcifications of the aorta. There are extensive calcifications of the external iliac arteries The visualized liver and spleen are unremarkable for noncontrast examination. The noncontrasted gallbladder, pancreas and RIGHT adrenal gland are normal. There is a benign 1.7 cm LEFT adrenal adenoma. T here is a RIGHT ventral fat-containing hernia. There is a LEFT perimedian colostomy partially visualized. The amount of herniated fat in the colostomy is increased since the prior exam. No bowel dilatation. There is no free fluid or free air. No adenopathy is identified. There are no suspicious osseous lesions. There are degenerative changes of the spine. Limited images of the thoraces demonstrate extensive atherosclerotic coronary artery calcifications. The heart is not enlarged. There are multifocal airspace opacifications identified with interlobular septal thickening. There is a trace LEFT effusion. IMPRESSION: No urinary tract calculi. No hydronephrosis. Multifocal airspace opacifications and interlobular septal thickening in the lung bases. These findings most likely represent a fluid overload state. Infectious etiologies are also possible. I have personally reviewed the images of this examination and agree with the resident's findings and interpretation. Interpreted By: Kristan Saenz MD Preliminary Report By: Sergio Metzger MD Electronically Signed By: Kristan Saenz MD Dictated Date: 06/03/2018 11:10:43 PM Prelim Date: 06/03/2018 11:20:28 PM Sign Date: 06/04/2018 12:39:48 AM Observed: 06/03/2018 Status: F Source: [facility] 9:32 PM [facility] REPOSITORY . MICRO - Microbiology PROCEDURE: Culture Respiratory with Gram Stain [^1 *1] SOURCE: Sputum BODY SITE: Respiratory lower COLLECTED DATE/TIME: 06/03/2018 21:32 EST RECEIVED DATE/TIME: 06/04/2018 16:27 EST START DATE/TIME: 06/04/2018 16:27 EST FREE TEXT SOURCE: FINAL REPORTS Final Report [] Verified Date/Time/Personnel: 06/06/2018 07:48 EST Normal respiratory fadi present. Sensitivity testing not indicated. STAINS GS [] Verified Date/Time/Personnel: 06/04/2018 19:05 EST Predominance of polys 2+ Polymorphonuclear cells Rare Epithelial cells 1+ Gram Positive Cocci Rare Gram Negative Rods Interpretive Data ^1: Culture Respiratory with Gram Stain Requests for Mycoplasma, Legionella, Fungi, Mycobacteria, Chlamydia, and Viruses require ordering of those individual tests. Performing Locations *1: This test was performed at: [facility], [address] [place] [address], [address] [place] [address] States Performed By: #### CRESP #### [address] [address] XR CHEST 2 VIEWS Observed: 06/03/2018 Status: F Source: [facility] 9:23 PM [facility] REPOSITORY ORIGINAL XR CHEST 2 VIEWS CLINICAL STATEMENT: Cough/Fever Suspect Pneumonia. COMPARISON: 04/17/2018 FINDINGS: The heart size is borderline. Vascular and interstitial prominence noted. Nodular densities project over the lower lungs. No consolidation identified. No pneumothorax. No destructive osseous l esion. Remodeled rib deformities noted with LEFT pleural thickening. IMPRESSION: Vascular and interstitial prominence may relate to edema. Nodular densities present projecting over the lower lungs may relate to the interstitial prominence. Follow to resolution Interpreted By: Zach Maza MD Preliminary Report By: Zach Maza MD Electronically Signed By: Zach Maza MD Dictated Date: 06/03/2018 9:26:09 PM Prelim Date: 06/03/2018 9:26:09 PM Sign Date: 06/03/2018 9:29:41 PM Observed: 06/03/2018 Status: F Source: [facility] 9:06 PM [facility] REPOSITORY . MICRO - Microbiology PROCEDURE: Blood Culture (bacterial) [*1] SOURCE: Blood BODY SITE: COLLECTED DATE/TIME: 06/03/2018 21:06 EST RECEIVED DATE/TIME: 06/04/2018 16:21 EST START DATE/TIME: 06/04/2018 16:21 EST FREE TEXT SOURCE: FINAL REPORTS Final Report [] Verified Date/Time/Personnel: 06/09/2018 16:59 EST Blood Culture: No Growth at 5 days. PRELIMINARY REPORTS Preliminary Report [] Verified Date/Time/Personnel: 06/04/2018 16:59 EST Culture has been received in lab and is no growth to date. Routine cultures are held for 5 days. Performing Locations *1: This test was performed at: [facility], [address] [place] [address], [facility] , [facility] Performed By: #### CBL #### [address] [address] CBC Collected: 06/03/2018 Status: F Source: [facility] 8:56 PM [facility] REPOSITORY TYPE CODE TESTS RESULT OUT OF REFERENCE UNITS RANGE LAB WBC(LOINC) 4.60-10.80 10 3/mcL WBC 9.30 LAB RBCCT(LOINC 4.20-5.40 10 6/mcL ) Low RBC 3.22 LAB HGB(LOINC) 12.0-16.0 G/dL Low Hgb 9.9 LAB HCT(LOINC) 37.0-47.0 % Low Hct 31.0 LAB MCV(LOINC) 80.0-94.0 fL High MCV 96.3 LAB MCH(LOINC) 27.0-31.2 pg MCH 30.7 LAB MCHC(LOINC) 33.0-37.0 G/dL Low MCHC 31.9 LAB RDW(LOINC) 11.5-14.5 % High RDW 19.0 LAB PLT(LOINC) 130-400 10 3/mcL Platelet 209 LAB MPV(LOINC) 7.4-10.4 fL Low MPV 6.9 Performed By: #### CBC, ADIFF, ANEU #### [address] [address] #### MG, CMP, GFR, LAC #### [place] [address] .AUTO DIFF Collected: 06/03/2018 Status: F Source: [facility] 8:56 PM [facility] REPOSITORY TYPE CODE TESTS RESULT OUT OF REFERENCE UNITS RANGE LAB GALINA(LOINC) 37.0-80.0 % High Neutrophil % 87.0 LAB LYM(LOINC) 10.0-50.0 % Low Lymphocyte % 7.6 LAB MON(LOINC) 1.7-13.0 % Monocyte % 4.6 LAB EO(LOINC) 0.0-7.0 % Eosinophil % 0.5 LAB BAS(LOINC) 0.0-2.5 % Basophil % 0.3 LAB ABLYM(LOIN 0.77-3.85 10 3/mcL C) Low Lymphocyte, 0.70 Absolute LAB WILLIAM(LOINC 0.15-1.00 10 3/mcL ) Monocyte, 0.40 Absolute LAB AEOS(LOINC 0.00-0.40 10 3/mcL ) Eosinophil, 0.10 Absolute LAB ABAS(LOINC 0.00-0.19 10 3/mcL ) Basophil, 0.00 Absolute Performed By: #### CBC, ADIFF, ANEU #### [address] [place], [place] [address] #### MG, CMP, GFR, LAC #### [address] [address] .NEUABS Collected: 06/03/2018 Status: F Source: [facility] 8:56 PM [facility] REPOSITORY TYPE CODE TESTS RESULT OUT OF REFERENCE UNITS RANGE LAB ANEU(LOINC) 2.85-6.16 10 3/mcL High Neutrophil, 8.10 Absolute Performed By: #### CBC, ADIFF, ANEU #### [address] [address] #### MG, CMP, GFR, LAC #### [address] [address] MG Collected: 06/03/2018 Status: F Source: [facility] 8:56 PM [facility] REPOSITORY TYPE CODE TESTS RESULT OUT OF REFERENCE UNITS RANGE LAB MG(LOINC) 1.8-2.4 mg/dL Low Magnesium Lvl 1.6 Performed By: #### CBC, ADIFF, ANEU #### [address] [address] #### MG, CMP, GFR, LAC #### [address] [address] CMP Collected: 06/03/2018 Status: F Source: [facility] 8:56 PM [facility] REPOSITORY TYPE CODE TESTS RESULT OUT OF REFERENCE UNITS RANGE LAB GLU(LOINC) 70-105 mg/dL Glucose High Level 179 LAB NA(LOINC) 136-145 mmol/L Sodium Level 138 LAB K(LOINC) 3.5-5.1 mmol/L Potassium Level 4.0 LAB CL(LOINC) 98-107 mmol/L Low Chloride 97 LAB CO2(LOINC) 22-29 mmol/L CO2 High 30 LAB EBAL(LOINC mEq/L ) Electrolyte Balance 11.0 LAB BUN(LOINC) 7-18 mg/dL BUN High 32 LAB CRE(LOINC) 0.55-1.02 mg/dL Creatinine High Lvl (s) 5.59 LAB BC(LOINC) 7-27 ratio Low BUN/Creatinine 6 Ratio LAB CA(LOINC) 8.4-10.2 mg/dL Calcium Lvl 8.7 LAB PROT(LOINC 6.4-8.2 G/dL ) Total Protein 7.3 LAB ALB(LOINC) 3.5-5.0 G/dL Low Albumin Level 3.1 LAB GLB(LOINC) G/dL Globulin 4.2 LAB AG(LOINC) 1.1-2.5 ratio Low A/G Ratio 0.7 LAB BILT(LOINC 0.2-1.0 mg/dL ) Bili Total 0.6 LAB AP(LOINC) 40-135 U/L Alk Phos 103 LAB AST(LOINC) 10-40 U/L AST/SGOT 15 LAB ALT(LOINC) 10-35 U/L ALT/SGPT 32 Performed By: #### CBC, ADIFF, ANEU #### [facility] [address] [place], [place] [address] #### MG, CMP, GFR, LAC #### [address] [address] .GFR Collected: 06/03/2018 Status: F Source: [facility] 8:56 PM [facility] REPOSITORY TYPE CODE TESTS RESULT OUT OF REFERENCE UNITS RANGE LAB GFRAA(LOINC ml/min/1.73 ) sqm GFR 10 Lao Result Comment: GFR Population mean for , Non- Americans Ages 20-29 = 116 mL/min/1.73 sq.m. Ages 30-39 = 107 mL/min/1.73 sq.m. Ages 40-49 = 99 mL/min/1.73 sq.m. Ages 50-59 = 93 mL/min/1.73 sq.m. Ages 60-69 = 85 mL/min/1.73 sq.m. Ages 70+ = 75 mL/min/1.73 sq.m. Chronic Kidney Disease: Less than 60 mL/min/1.73 square meters End Stage Renal Disease: Less than 15 mL/min/1.73 square meters LAB GFRNO(LOINC) ml/min/1.73sqm GFR Non- 8 Result Comment: GFR Population mean for , Non- Americans Ages 20-29 = 116 mL/min/1.73 sq.m. Ages 30-39 = 107 mL/min/1.73 sq.m. Ages 40-49 = 99 mL/min/1.73 sq.m. Ages 50-59 = 93 mL/min/1.73 sq.m. Ages 60-69 = 85 mL/min/1.73 sq.m. Ages 70+ = 75 mL/min/1.73 sq.m. Chronic Kidney Disease: Less than 60 mL/min/1.73 square meters End Stage Renal Disease: Less than 15 mL/min/1.73 square meters Performed By: #### CBC, ADIFF, ANEU #### [address] [place], [place] [address] #### MG, CMP, GFR, LAC #### [facility] [address] [place] [address] LAC Collected: 06/03/2018 Status: F Source: [facility] 8:56 PM [facility] REPOSITORY TYPE CODE TESTS RESULT OUT OF REFERENCE UNITS RANGE LAB LAC(LOINC) 0.4-2.0 mmol/L Lactic Acid 1.3 Lvl Performed By: #### CBC, ADIFF, ANEU #### [address] [address] [place], [place] [address] #### MG, CMP, GFR, LAC #### [facility] [address] [place] [address] Observed: 06/03/2018 Status: F Source: [facility] 8:56 PM [facility] REPOSITORY . MICRO - Microbiology PROCEDURE: Rapid Influenza A+B Screen w Cult if Ind [*1] SOURCE: Nasopharyngeal BODY SITE: COLLECTED DATE/TIME: 06/03/2018 20:56 EST RECEIVED DATE/TIME: 06/03/2018 21:00 EST START DATE/TIME: 06/03/2018 21:00 EST FREE TEXT SOURCE: FINAL REPORTS Final Report [] Verified Date/Time/Personnel: 06/03/2018 21:27 EST Specimen is negative for the presence of influenza A antigen. . Specimen is negative for the presence of influenza B antigen. . Inadequate specimen collection, improper sample handling and/or low levels of viral shedding may yield a false-negative result. . The optimal specimen type for the Rapid Flu test is a nasopharyngeal wash/aspirate or nasopharyngeal swab. All negative rapid tests for Flu A and Flu B will be confirmed with a Respiratory Id Panel by PCR. . Assay method employs immunofluorescence technology. Performing Locations *1: This test was performed at: [place] [id number] [place], [place], [address] Performed By: #### RFLU #### [address] [address] Observed: 06/03/2018 Status: F Source: [facility] 8:56 PM [facility] REPOSITORY . MICRO - Microbiology PROCEDURE: Blood Culture (bacterial) [*1] SOURCE: Blood BODY SITE: COLLECTED DATE/TIME: 06/03/2018 20:56 EST RECEIVED DATE/TIME: 06/04/2018 16:21 EST START DATE/TIME: 06/04/2018 16:21 EST FREE TEXT SOURCE: FINAL REPORTS Final Report [] Verified Date/Time/Personnel: 06/09/2018 16:59 EST Blood Culture: No Growth at 5 days. PRELIMINARY REPORTS Preliminary Report [] Verified Date/Time/Personnel: 06/04/2018 16:59 EST Culture has been received in lab and is no growth to date. Routine cultures are held for 5 days. Performing Locations *1: This test was performed at: [facility], [address] [place] [address], [address] [place] [address] Performed By: #### CBL #### [address] [address] RESPID Collected: 06/03/2018 Status: F Source: [facility] 8:51 PM [facility] REPOSITORY Order Comment: Order added by [id number] TYPE CODE TESTS RESULT OUT OF REFERENCE UNITS RANGE LAB RESADENO( Not Detected LOINC) Adenovirus Not Detected LAB COVHKU1(L Not Detected OINC) Coronavirus HKU1 Not Detected LAB COVNL63(L Not Detected OINC) Coronavirus NL63 Not Detected LAB FpA638O(L Not Detected OINC) Coronavirus 229E Not Detected LAB COVOC43(L Not Detected OINC) Coronavirus OC43 Not Detected LAB HMV(LOINC Not Detected ) Human Metapneumovirus Not Detected LAB INFA(LOIN Not Detected C) Influenza A Not Detected LAB INFAB(GUILLERMINA Not Detected NC) Influenza B Not Detected LAB PARAFLU1( Not Detected LOINC) Parainfluenza 1 Not Detected LAB PARAFLU2( Not Detected LOINC) Parainfluenza 2 Not Detected LAB PARAFLU3( Not Detected LOINC) Parainfluenza 3 Not Detected LAB PARAFLU4( Not Detected LOINC) Parainfluenza 4 Not Detected LAB RHINO(GUILLERMINA Not Detected NC) Rhinovirus/Enterovir us Not Detected LAB RESRSV(LO Not Detected INC) Respiratory Syncytial Virus Not Detected LAB RESMYCO(L Not Detected OINC) Mycoplasma pneumoniae Not Detected LAB RESCHLAM( Not Detected LOINC) Chlamydophila pneumoniae Not Detected LAB RESBORD(L Not Detected OINC) Bordetella Pertussis Not Detected LAB RESBPAR(L Not Detected OINC) Bordetella Parapertussis Not Detected Performed By: #### RESPID #### [facility] [address] [place] [address] DISCHARGE INSTRUCTION Observed: 05/29/2018 Status: F Source: [place] 6:14 PM [facility] REPOSITORY [facility] Medical Records Department [address] [place] [address] Discharge Instruction 05/29/18 1144 MR#: [id number] Acct: [id number] Name: KOURTNEY REZA Rep #: [id number] : 1975 42 From: Matt Andersen MD PCP: Ric Mccrary MD Status: DEP ER ED Disposition - Plan for ED Patient: Disposition: Home or Assisted Living Chief Complaint: Shortness of Breath Instructions: ED CHF General, ED Upper Resp Infec No Abx Tx Referrals: Ric Mccrary MD [Primary Care Provider] - As Needed Additional Instructions: I just spoke to your dialysis center and they want to saw you today. You have fluid buildup in your lungs that needs to be dialyzed off. You also have a viral URI which does not need antibiotics. What to do if you have Problems For any increased pain, shortness of breath, bleeding, nausea or vomiting, chest pain, or any unexpected problems, contact your Primary Care Provider. Call [facility] ([phone]) or report to the closest Emergency Room. Call 911 if necessary. 05/29/18 2692 <Electronically signed by Matt Andersen MD> Date Matt Andersen MD Cosigner Signature (If Indicated): Date CC: Ric Mccrary MD EMERGENCY DEPARTMENT Observed: 05/29/2018 Status: F Source: [place] SUMMARY 6:14 PM [facility] REPOSITORY [facility] Medical Records Department [address] [place] [address] Emergency Department Summary 05/29/18 0957 MR#: [id number] Acct: [id number] Name: KOURTNEY REZA Rep #: [id number] : 1975 42 From: Matt Andersen MD PCP: Ric Mccrary MD Status: DEP ER - ER Visit Summary Date of Service: 05/29/18 Chief Complaint: Cough and pleuritic chest pain History of Present Illness: The patient is a 42 F history of prior CAD, [place] with one cardiac stent. Prior CHF and known COPD. Type 2 insulin-dependent diabetic with end-stage renal disease in which she is dialyzed Monday and supposed to be left dialyzes afternoon. States that yesterday she has had a cough of yellowish phlegm. Subjective chills. No fever. Denies any hemoptysis. No history of DVT or PE. No recent travel, surgery no recent immobilization. No calf pain or swelling. Physical Examination: Room air no hypoxia. H EENT exam unremarkable. Neck nontender. Lungs clear to auscultation bilaterally. Heart regular rate and rhythm no murmur. Chest wall nontender. Abdomen soft and nontender. Normal bowel sounds no peritoneal tones. Extremities moves all 4. Calves are nontender without cords. Neurovascular intact. Left forearm dialysis shunt. Neurologically awake alert with no focal motor deficits. Test Results: Chest x-ray with 2 views shows shows congestive heart failure most likely pulmonary edema from missing dialysis. No pneumonia. Read both by myself the radiologist. Emergency Department Course and Treatment: Repeat exam patient is doing well at 1140. Treatment Plan: I spoke to her dialysis center and they assured me that she can come right over and be dialyzed today. They will check any labs refill are necessary. Disposition: Discharge Impression: Acute bronchitis with pleurisy Pulmonary edema secondary to missing dialysis History of end-stage renal disease with dialysis This note was generated with [employer] dictation software. It may contain incorrect words, spelling, and punctuation that were not noted in review of the chart prior to signing ED Disposition - Plan for ED Patient: Chief Complaint: Shortness of Breath Referrals: Ric Mccrary MD [Primary Care Provider] - What to do if you have Problems For any increased pain, shortness of breath, bleeding, nausea or vomiting, chest pain, or any unexpected problems, contact your Primary Care Provider. Call [facility] ([phone]) or report to the closest Emergency Room. Call 911 if necessary. 05/29/181813 <Electronically signed by Matt Andersen MD> Date Matt Andersen MD Cosigner Signature (If Indicated): Date CC: Ric Mccrary MD CHEST PA AND LATERAL Observed: 05/29/2018 Status: F Source: [place] 9:55 AM [facility] REPOSITORY [facility] Imaging Services [address] [place] [address] Chest PA and Lateral MR#: [id number] Acct: [id number] Name: KOURTNEY REZA Rep #: [id number] : 1975 F 42 From: Josh Hill MD PCP: Ric Mccrary MD Status: REG ER Study: Chest PA and Lateral Date of Exam: 05/29/18 Exam# [id number] Ordering Dr: Matt Andersen MD STUDY: X-RAY CHEST REASON FOR EXAM: Female, 42 years old. Cough. TECHNIQUE: PA and lateral views of the chest. COMPARISON: Comparison is made with prior study dated May 26, 2018. FINDINGS: Since prior study, there is been progressive increased interstitial markings with areas of confluence worse in the lower lobes. This is superimposed on basilar congestion. Findings are suggestive of progressive CHF and possible bibasilar atelectasis. There is blunting of the right costophrenic angle. Normal size heart. Normal mediastinum and latrell. Normal visualized pulmonary arteries. Normal visualized aortic arch and descending thoracic aorta. Normal visualized thoracic spine. Multiple healed left rib fractures. There is no demonstrated abnormality of the visualized soft tissue structures of the upper abdomen. RAD/Chest PA and Lateral IMPRESSION: Progressive increase markings in both lungs with areas of confluence suggestive of progressive CHF. There is blunting of the right costophrenic angle. Electronically Signed: Josh Hill MD at 10:48 EST Tel [phone], Service support , CC: Matt Andersen MD; Ric Mccrary MD Tester Operator Helper: Signed 12 LEAD ELECTROCARDIOGRAM Observed: 05/28/2018 Status: F Source: [place] 3:28 PM [facility] REPOSITORY [facility] Cardiovascular Services [address] [place] [address] 12 Lead EKG 05/26/18 1330 MR#: [id number] Acct: [id number] Name: KOURTNEY REZA Rep #: [id number] : 1975 42 From: Robert Tompkins MD Attending Dr: Status: DEP ER Ordering Dr: Jules Story MD Date: 05/26/18 Location: ED Sex: F C Admitted: Test Reason : CP Blood Pressure : / mmHG Vent. Rate : 089 BPM Atrial Rate : 089 BPM P-R Int : 134 ms QRS Dur : 100 ms QT Int : 410 ms P-R-T Axes : 048 054 246 degrees QTc Int : 498 ms Normal sinus rhythm Minimal voltage criteria for LVH, may be normal variant ST AND T wave abnormality, consider inferior ischemia Prolonged QT Abnormal ECG Confirmed by ROBERT TOMPKINS MD ([id number]), web editor SHANIA SOLITARIO ([id number]) on 05/28/2018 3:28:07 PM Referred By: CAITLIN Confirmed By:ROBERT TOMPKINS MD 05/28/18 1528 Date Robert Tompkins MD CC: Jules Story MD; Ric Mccrary MD Signed EMERGENCY DEPARTMENT Observed: 05/26/2018 Status: F Source: [place] SUMMARY 4:14 PM [facility] REPOSITORY [facility] Medical Records Department [address] [place] [address] Emergency Department Summary 05/26/18 1523 MR#: [id number] Acct: [id number] Name: KOURTNEY REZA Rep #: [id number] : 1975 42 From: Jules Story MD PCP: Ric Mccrary MD Status: DEP ER - ER Visit Summary Date of Service: 05/26/18 Chief Complaint: Chest pain History of Present Illness: The patient is a [address] Underwood, Dr. Mccrary, and Dr. Martinez. She reports that she has chest pain that began while getting dialysis. She describes as a tightness. Zeta 10 to worsen she is pain-free currently. Is worsened by nothing. States that it was relieved by talking to the EMS and that she is under a great deal of stress at home. States that her dad was recently diagnosed with heart problems and kidneys are failing. She reports that she has been nauseated and vomiting since yesterday. States that she is vomited 4-5 times altogether. There is been no blood in her emesis. She denies any shortness of breath. She has a cough productive yellow sputum without blood. No fever. Physical Examination: Vitals: Stable. Afebrile. General: Well-nourished and well-developed. Head: Normocephalic atraumatic. Neck: Supple, no lymphadenopathy. No JVD. Nontender. Cardiovascular: Regular rate and rhythm. No murmurs. Respiratory: No respiratory distress. Clear to auscultation bilaterally. Abdominal: Soft, nontender, nondistended, normal bowel sounds. No guarding, rebound, or peritoneal signs. Back: Nontender. Extremities: Nontender, no edema. Skin: Normal color, no rash. Neurologic: Alert and oriented 3. Cranial nerves II through XII are intact. Normal strength and sensation. Psych: Depressed affect. Test Results: EKG is sinus at [address] changes. Is unchanged from last month. Troponin is 0.03. Chem-7 is more for BUN 48, creatinine 5.41, glucose of 351, calcium 7.6. CBC is more for an H AND H of 8.9 and 20.5, 7 neutrophils 84 and lymphocytes 10. Chest x-ray shows CHF with interstitial/basilar edema. Emergency Department Course and Treatment: Patient was treated with aspirin p.o. and Tylenol p.o. After discussion with the hot die picker she was given a dose of Toradol IV. I reviewed her recent records. She had a heart catheterization in February of this year that did require a stent. However, in March of this year she had a negative stress echo. Last month she was admitted from the to the and no further cardiac workup was needed. Treatment Plan: Patient was discussed with Dr. Tompkins. He reports from a cardiac perspective that she does not need to be admitted to the hospital. The patient was also discussed with Dr. Martinez due to the x-ray findings. Patient is able to ambulate with a pulse ox of 96% while walking. She has oxygen to use at home as needed. Does not feel that she needs to be admitted to the hospital for dialysis. He will arrange for her to have dialysis in 2 days. Patient is happy with this plan. Return to the emergency department for any worsening symptoms. Disposition: To home in improved and stable condition. Impression: 1. Chest pain. 2. CHF. 3. End-stage renal disease on hemodialysis. 4. Depression/anxiety. This note was generated with [employer] software. It may contain incorrect words, spelling, and punctuation that were not noted in review of the chart prior to signing ED Disposition - Plan for ED Patient: Disposition: Home or Assisted Living Chief Complaint: Chest Pain Instructions: ED Chest Pain Atypical Unkn Cause Referrals: Ric Mccrary MD [Primary Care Provider] - As soon as possible Chey Martinez MD [STAFF PHYSICIAN] - Wm Underwood MD [STAFF PHYSICIAN] - Keep Debbie appointment Additional Instructions: Dr. Martinez will set up doialysis for you on Monday. Call the dialysis center to get the time if you don't here form Dr. Martinez. What to do if you have Problems For any increased pain, shortness of breath, bleeding, nausea or vomiting, chest pain, or any unexpected problems, contact your Primary Care Provider. Call [facility] ([phone]) or report to the closest Emergency Room. Call 911 if necessary. 05/26/18 1614 <Electronically signed by Jules Story MD> Date Jules Story MD Cosigner Signature (If Indicated): Date CC: Ric Mccrary MD CBC W/DIFF, AUTOMATED Collected: 05/26/2018 Status: F Source: [place] 1:45 PM [facility] REPOSITORY TYPE CODE TESTS RESULT OUT OF RANGE REFERENCE UNITS LAB L100.1000 4.4-11.0 K/mm3 Normal WBC 6.1 LAB L100.1200 4.2-5.4 M/mm3 Low RBC 2.98 LAB L100.1300 12.0-15.0 g/dl Low HGB 8.9 LAB L100.1400 37-47 % Low HCT 28.5 LAB L100.1500 81-99 fL Normal MCV 95.6 LAB L100.1600 27.0-32.0 pg Normal MCH 29.9 LAB L100.1700 32-36 g/gl Low MCHC 31.2 LAB L100.1810 11.6-14.6 % High RDW CV 16.8 LAB L100.1820 35.1-43.9 fl High RDW SD 58.2 LAB L100.1900 150-450 K/mm3 Normal PLT 151 LAB L100.2000 6.2-12.0 fl Normal MPV 8.4 LAB L100.2100 47-70 % High NEUT% 84.4 LAB L100.2200 19-41 % Low LY% 10.1 LAB L100.2300 0-10 % Normal MONO% 2.8 LAB L100.2400 0-5 % Normal EO% 2.3 LAB L100.2500 0-1 % Normal BASO% 0.2 LAB L100.2550 0.0-0.9 % Normal IM GRAN % 0.200 Result Comment: IG% - Immature Granulocytes (promyelocytes, myelocytes and metamyelocytes) > 1% indicates that a LEFT SHIFT is Present. LAB L100.2620 2.0-7.7 X10 3/uL Normal Absolute Neut 5.2 LAB L100.2720 0.83-4.51 X10 3/ul Low Absolute Lymph 0.62 Performed By: #### L100.0100 #### [facility] [address] [place], [address] BASIC METABOLIC Collected: 05/26/2018 Status: F Source: [place] PROFILE (BMP) 1:45 PM [facility] REPOSITORY TYPE CODE TESTS RESULT OUT OF RANGE REFERENCE UNITS LAB L501.0100 74-106 mg/dL High GLU 351 Result Comment: Glucose result greater than or equal to 200 mg/dL suggests DIABETES MELLITUS per A.D.A. criteria. Please note revised GLUCOSE reference range effective 2017. LAB L501.1000 7-18 mg/dL High BUN 48 LAB L501.1100 0.55-1.02 mg/dL High CREAT,SERUM 5.41 Result Comment: The validity of the calculated GFR AND GFRAA in patients over 70 years has not been determined. Clinical correlation is essential. LAB L501.1110 >60 mL/min Low EST GFR 9 Result Comment: Non- GFR Calc LAB L501.1115 >60 mL/min Low EST GFR - AA 11 Result Comment: GFR Calc LAB L501.1255 ml/min Normal Estimated CRCL 12.42 LAB L501.1300 10-20 RATIO Low BUN/CRE 8.9 LAB L501.2200 8.5-10 mg/dL Low .1 CA 7.6 LAB L501.5300 136-14 mmol/L Normal 5 NA 137 LAB L501.5600 3.5-5. mmol/L Normal 1 K 3.8 LAB L501.5900 98-107 mmol/L Normal CL 99 LAB L501.6100 21.0-3 mmol/L Normal 2.0 CO2 29.0 LAB L501.6200 5-15 Normal GAP 9 Performed By: #### L500.2500, L501.4010 #### [facility] [address] [place], [address] TROPONIN-I Collected: 05/26/2018 Status: F Source: [place] 1:45 PM [facility] REPOSITORY TYPE CODE TESTS RESULT OUT OF RANGE REFERENCE UNITS LAB L501.4010 <0.045 ng/mL Normal 0.030 TROPONIN-I Result Comment: TROPONIN-I EXPECTED VALUES <0.045 Negative 0.045 - 0.590 Consistent with Cardiac Damage > OR = 0.600 Critical Value Not every elevated troponin is indicative of [place]. These values should be used with clinical judgement in examining the patient's clinical picture for diagnosis. To establish a diagnosis of [place] versus myocardial injury, there must be a demonstrated rise and/or fall in the troponin values, in addition to ischemic symptoms, EKG changes, new regional wall motion abnormality, and/or angiographical evidence. PLEASE NOTE: REFERENCE RANGES EDITED 17 Performed By: #### L500.2500, L501.4010 #### [facility] [address] [place], [address] CHEST 1 VIEW Observed: 05/26/2018 Status: F Source: [place] (PORTABLE) 1:37 PM [facility] REPOSITORY [facility] Imaging Services [address] [place] [address] [place] [address] Chest 1 View (Portable) MR#: [id number] Acct: [id number] Name: KOURTNEY REZA Rep #: [id number] : 1975 F 42 From: Lamberto Otto MD PCP: Ric Mccrary MD Status: PRE ER Study: Chest 1 View (Portable) Date of Exam: 05/26/18 Exam# [id number] Ordering Dr: Jules Story MD STUDY: X-RAY CHEST REASON FOR EXAM: Female, 42 years old. Chest pain during dialysis, pain radiates to the back TECHNIQUE: AP COMPARISON: 05/12/2018 FINDINGS: EKG leads project over the chest. Central pulmonary vascular congestion and bibasilar reticular opacities new since the prior study. No sizable pleural effusion. There is mild cardiac enlargement. Normal mediastinum and latrell. There is prominence of the pulmonary hilar arteries and peripheral pulmonary arteries, consistent with congestive heart failure (CHF). Normal visualized aortic arch and descending thoracic aorta. Normal visualized thoracic spine. Stable deformity of the left upper posterior ribs, either from prior trauma/surgery or congenital. There is no demonstrated abnormality of the visualized soft tissue structures of the upper abdomen. RAD/Chest 1 View (Portable) IMPRESSION: 1. Unfavorable change. CHF with interstitial/basilar edema. No sizable effusion. Electronically Signed: Lamberto Otto MD at 14:23 EDT , Service support , CC: Jules Story MD; Ric Mccrary MD Tester Operator Helper: Signed CBC Collected: 05/16/2018 Status: F Source: [facility] 11:59 PM [facility] REPOSITORY TYPE CODE TESTS RESULT OUT OF REFERENCE UNITS RANGE LAB WBC(LOINC) 4.60-10.80 10 3/mcL WBC 6.00 LAB RBCCT(LOINC 4.20-5.40 10 6/mcL ) Low RBC 3.34 LAB HGB(LOINC) 12.0-16.0 G/dL Low Hgb 10.2 LAB HCT(LOINC) 37.0-47.0 % Low Hct 31.5 LAB MCV(LOINC) 80.0-94.0 fL High MCV 94.3 LAB MCH(LOINC) 27.0-31.2 pg MCH 30.6 LAB MCHC(LOINC) 33.0-37.0 G/dL Low MCHC 32.5 LAB RDW(LOINC) 11.5-14.5 % High RDW 17.3 LAB PLT(LOINC) 130-400 10 3/mcL Platelet 170 LAB MPV(LOINC) 7.4-10.4 fL MPV 7.4 Performed By: #### CBC, ADIFF, ANEU #### [address] [address] #### BMP, GFR, TROP #### [address] [address] .AUTO DIFF Collected: 05/16/2018 Status: F Source: [facility] 11:59 PM [facility] REPOSITORY TYPE CODE TESTS RESULT OUT OF REFERENCE UNITS RANGE LAB GALINA(LOINC) 37.0-80.0 % High Neutrophil % 82.0 LAB LYM(LOINC) 10.0-50.0 % Low Lymphocyte % 9.1 LAB MON(LOINC) 1.7-13.0 % Monocyte % 4.2 LAB EO(LOINC) 0.0-7.0 % Eosinophil % 4.5 LAB BAS(LOINC) 0.0-2.5 % Basophil % 0.2 LAB ABLYM(LOIN 0.77-3.85 10 3/mcL C) Low Lymphocyte, 0.50 Absolute LAB WILLIAM(LOINC 0.15-1.00 10 3/mcL ) Monocyte, 0.30 Absolute LAB AEOS(LOINC 0.00-0.40 10 3/mcL ) Eosinophil, 0.30 Absolute LAB ABAS(LOINC 0.00-0.19 10 3/mcL ) Basophil, 0.00 Absolute Performed By: #### CBC, ADIFF, ANEU #### [address] [address] #### BMP, GFR, TROP #### [address] [address] .NEUABS Collected: 05/16/2018 Status: F Source: [facility] 11:59 PM [facility] REPOSITORY TYPE CODE TESTS RESULT OUT OF REFERENCE UNITS RANGE LAB ANEU(LOINC) 2.85-6.16 10 3/mcL Neutrophil, 4.90 Absolute Performed By: #### CBC, ADIFF, ANEU #### [address] [address] #### BMP, GFR, TROP #### [place] [address] BMP Collected: 05/16/2018 Status: F Source: [facility] 11:59 PM [facility] REPOSITORY TYPE CODE TESTS RESULT OUT OF REFERENCE UNITS RANGE LAB GLU(LOINC) 70-105 mg/dL Glucose High Level 189 LAB NA(LOINC) 136-145 mmol/L Low Sodium Level 133 LAB K(LOINC) 3.5-5.1 mmol/L Potassium Level 4.9 LAB CL(LOINC) 98-107 mmol/L Low Chloride 96 LAB CO2(LOINC) 22-29 mmol/L CO2 29 LAB EBAL(LOINC mEq/L ) Electrolyte Balance 8.0 LAB BUN(LOINC) 7-18 mg/dL BUN High 45 LAB CRE(LOINC) 0.55-1.02 mg/dL Creatinine High Lvl (s) 6.96 LAB BC(LOINC) 7-27 ratio Low BUN/Creatinine 6 Ratio LAB CA(LOINC) 8.4-10.2 mg/dL Calcium Lvl 9.1 Performed By: #### CBC, ADIFF, ANEU #### [address] [address] #### BMP, GFR, TROP #### [place] [address] .GFR Collected: 05/16/2018 Status: F Source: [facility] 11:59 [facility] REPOSITORY TYPE CODE TESTS RESULT OUT OF REFERENCE UNITS RANGE LAB GFRAA(LOINC ml/min/1.73 ) sqm GFR 8 Lao Result Comment: GFR Population mean for , Non- Americans Ages 20-29 = 116 mL/min/1.73 sq.m. Ages 30-39 = 107 mL/min/1.73 sq.m. Ages 40-49 = 99 mL/min/1.73 sq.m. Ages 50-59 = 93 mL/min/1.73 sq.m. Ages 60-69 = 85 mL/min/1.73 sq.m. Ages 70+ = 75 mL/min/1.73 sq.m. Chronic Kidney Disease: Less than 60 mL/min/1.73 square meters End Stage Renal Disease: Less than 15 mL/min/1.73 square meters LAB GFRNO(LOINC) ml/min/1.73sqm GFR Non- 6 Result Comment: GFR Population mean for , Non- Americans Ages 20-29 = 116 mL/min/1.73 sq.m. Ages 30-39 = 107 mL/min/1.73 sq.m. Ages 40-49 = 99 mL/min/1.73 sq.m. Ages 50-59 = 93 mL/min/1.73 sq.m. Ages 60-69 = 85 mL/min/1.73 sq.m. Ages 70+ = 75 mL/min/1.73 sq.m. Chronic Kidney Disease: Less than 60 mL/min/1.73 square meters End Stage Renal Disease: Less than 15 mL/min/1.73 square meters Performed By: #### CBC, ADIFF, ANEU #### [address] [address] #### BMP, GFR, TROP #### [address] [address] TROP Collected: 05/16/2018 Status: F Source: [facility] 11:59 PM [facility] REPOSITORY TYPE CODE TESTS RESULT OUT OF REFERENCE UNITS RANGE LAB TROP(LOINC) 0.000-0.040 ng/mL Troponin <0.020 Result Comment: Troponin I reference range: 0.00-0.040 ng/mL Negative and non-diagnostic. >0.040 ng/mL Consistent with cardiac damage, increased clinical risk and possibility of myocardial infarction. Serial measurements, a rise & fall in test results, clinical history, appropriate symptoms and/or ECG changes may help assess possibility of [place]. *Other non-acute coronary syndrome conditions such as CHF, myocarditis, pulmonary emboli, sepsis and cardiac surgery could result in myocardial damage and increased troponin levels. Performed By: #### CBC, ADIFF, ANEU #### [address] [address] #### BMP, GFR, TROP #### [address] [address] DISCHARGE SUMMARY Observed: 05/16/2018 Status: F Source: [place] 4:50 PM [facility] REPOSITORY [facility] Medical Records Department [facility] [place] [address] [place] [address] Discharge Summary 05/16/18 1647 MR#: [id number] Acct: [id number] Name: KOURTNEY REZA Rep #: [id number] : 1975 42 From: Jolene San MD PCP: Ric Mccrary MD Status: ADM IN Y Location: [place] [id number] Discharge Date and Diagnosis Date of Admission: 05/12/18 Date of Discharge: 05/16/18 - Secondary Discharge Diagnosis Chronic Problems (Last Updated 02/27/18 @ 10:29 by Pricila Olson) CAD (coronary artery disease) (Chronic) Stented coronary artery (Chronic 02/26/18) FFR of LAD 0.82; VIKY of mid LAD with 2.5 X 24 mm Promus Synergy, OM <50% stenosis per Dr. 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) S/P PTCA/VIKY to mid LAD in February 2018 OM #1 noted to be 50%; ESRD (end stage renal disease) on dialysis (Chronic) Decubitus ulcer, stage III (Chronic) Anemia, chronic disease (Chronic) Pilonidal cyst with abscess (Chronic) GABRIEL (obstructive sleep apnea) (Chronic) Depression (Chronic) Anxiety (Chronic) HTN (hypertension) (Chronic) Diabetes mellitus type 1 (Chronic) Hyperlipidemia (Chronic) Obesity (BMI 30.0-34.9) (Chronic) Gastroparesis (Chronic) Hospital Course and Treatment Operations: None Summary of Care Provided: Patient is a 42-year-old female with a history of ESRD on HD (TTS), hypertension, CAD on dual antiplatelet therapy, dyslipidemia, history of C. 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 Chest pain is felt to be noncardiac in origin. Patient was seen in consultation by both cardiology as well as nephrology. She continued her hemodialysis during her hospitalization. Cardiology had felt that this was likely noncardiac in etiology and suspected a possible GI source. Patient underwent a gallbladder ultrasound which was unremarkable and showed no evidence of cholecystitis or cholelithiasis. Upon further workup, patient does admit that she has been off of her omeprazole in the past and states that it has helped her with her heartburn. Suspect patient's symptoms are likely related to acid reflux. She will be discharged home on omeprazole and will continue this as an outpatient. Patient had no further episodes of chest pain and was otherwise doing well. She was stable and ready for discharge and had met maximal hospital benefit. She will continue her home medications as prescribed and will continue hemodialysis on her regular schedule. Objective: General: Alert, Oriented x3, Cooperative HEENT: Atraumatic, Normocephalic Neck: Supple Lungs: Clear to auscultation, Normal air movement Cardiovascular: Regular rate Abdomen: Bowel Sounds Present, Soft, Non Tender - Nontender even with deep palpation in the epigastrium, right upper quadrant region Extremities: No edema Skin: No rashes Musculoskeletal: No Tenderness to Palpation of Joints or Extremities Neurological: Cranial nerves II-XII grossly intact Psych/Mental Status: Normal Affect, Appropriate - Physical Exam Vital Signs Temp Pulse Resp BP Pulse Ox 98.3 F 77 16 131/68 H 96 05/16/18 14:35 05/16/18 14:59 05/16/18 14:35 05/16/18 14:35 05/16/18 14:35 Oxygen Flow Rate (L/min) 3 Oxygen Delivery Method Room Air Weight: 90.5 kg Body Mass Index (BMI) 30.9 Finger Stick Blood Glucose 118 Intake and Output for Last 24 Hours Intake Total 1670.3 / 1670.3 940 / 940 300 / 300 Output Total 1999 / 1999 Balance 1670.3 / 1670.3 -1060 / -1060 300 / 300 POC Glucose POC Glucose 185 H 115 H 143 H POC Glucose 188 H 192 H Discharge Diet: Renal Diet Discharge Activity: Return to Normal Activity Weight Bearing Status: Weight bearing as tolerated Call your doctor if you observe: Shortness of breath, Chest pain Home Medications: Medications to take at Discharge Aspirin [Aspirin, Baby] 81 mg PO DAILY@0800 01/26/16 Calcium Acetate [Phoslo Gel Cap] 1,334 mg PO TIDCM 01/26/16 Ergocalciferol [Vitamin D] 50,000 unit PO FR 01/26/16 Insulin Aspart [Novolog Flexpen] 10 units SC TIDCM 01/26/16 Insulin Glargine,Hum.rec.anlog [Lantus] 4 unit SQ QHS 01/09/17 proMETHazine tablet [Phenergan tablet] 25 mg PO Q6H PRN PRN #10 tab 03/06/17 Lisinopril 40 mg PO DAILY 03/29/17 Sodium Bicarbonate 650 mg PO 4X/DAY 03/29/17 Fluoxetine HCl 40 mg PO DAILY 09/02/17 ALPRAZolam [Xanax] 0.5 mg PO TUTHSA 11/21/17 Omeprazole Magnesium [Prilosec Otc] 20 mg PO DAILY 02/08/18 Clopidogrel Bisulfate [Plavix] 75 mg PO DAILY #90 tab 02/27/18 Isosorbide Mononitrate [Isosorbide Mononitrate ER] 60 mg PO DAILY 02/28/18 Ondansetron [Zofran Odt] 4 mg PO Q8H PRN PRN #10 tab 03/12/18 carvedilol 25 mg tablet 25 mg PO BID 03/14/18 Atorvastatin Calcium 20 mg PO QHS 03/17/18 Omeprazole 20 mg PO DAILY #30 capsule. 05/16/18 Following Prescrptions Were Given to Patient: Omeprazole 20 mg PO DAILY #30 capsule. Primary Care Physician: Ric Mccrary MD [Primary Care Provider] - Disposition: Home Patient Condition:: Good Medical Necessity - Tobacco Use Smoking Status: Former smoker Tobacco Use: Non-smoker Meaningful Use Info Meaningful Use Diagnoses (Choose all that apply): None applicable Code Visit Inpatient E AND M: 22418 Disch Hosp 05/16/18 1650 <Electronically signed by Jolene San MD> Date Jolene San MD Cosigner Signature (if applicable): Date CC: Jolene San MD; Ric Mccrary MD Signed DISCHARGE INSTRUCTION Observed: 05/16/2018 Status: F Source: [place] 4:47 PM [facility] REPOSITORY [facility] Medical Records Department [address] [place] [address] Instructions for Home/Discharge Instructions 05/16/18 1646 MR#: [id number] Acct: [id number] Name: KOURTNEY REZA Rep #: [id number] : 1975 42 From: Jolene San MD PCP: Ric Mccrary MD Status: ADM IN - Discharge Diagnoses Current Active Problems: Current Active and Chronic Problems (Last Updated 02/27/18 @ 10:29 by Pricila Olson) CAD (coronary artery disease) (Chronic) You will use the following diet at home:: Renal (restricted protein/sodium) Your food should be the consistency of: Regular Discharge Activity: Return to Normal Activity Weight Bearing Status: Weight bearing as tolerated Call your doctor if you observe: Shortness of breath, Chest pain Allergies/Adverse Reactions: Allergies latex Allergy (Verified 05/02/18 09:29) Rash levofloxacin [From Levaquin] Adverse Reaction (Verified 05/02/18 09:29) PT CAN'T REMEMBER PT CAN'T REMEMBER metoclopramide HCl [From Reglan] Adverse Reaction (Verified 05/02/18 09:29) Nausea NSAIDS (Non-Steroidal Anti-Inflamma Adverse Reaction (Verified 05/02/18 09:29) kidney function oxycodone HCl [From Percocet] Adverse Reaction (Verified 05/02/18 09:29) HALLUCINATIONS Medications to take at Discharge Aspirin [Aspirin, Baby] 81 mg PO DAILY@0800 01/26/16 Calcium Acetate [Phoslo Gel Cap] 1,334 mg PO TIDCM 01/26/16 Ergocalciferol [Vitamin D] 50,000 unit PO FR 01/26/16 Insulin Aspart [Novolog Flexpen] 10 units SC TIDCM 01/26/16 Insulin Glargine,Hum.rec.anlog [Lantus] 4 unit SQ QHS 01/09/17 proMETHazine tablet [Phenergan tablet] 25 mg PO Q6H PRN PRN #10 tab 03/06/17 Lisinopril 40 mg PO DAILY 03/29/17 Sodium Bicarbonate 650 mg PO 4X/DAY 03/29/17 Fluoxetine HCl 40 mg PO DAILY 09/02/17 ALPRAZolam [Xanax] 0.5 mg PO TUTHSA 11/21/17 Omeprazole Magnesium [Prilosec Otc] 20 mg PO DAILY 02/08/18 Clopidogrel Bisulfate [Plavix] 75 mg PO DAILY #90 tab 02/27/18 Isosorbide Mononitrate [Isosorbide Mononitrate ER] 60 mg PO DAILY 02/28/18 Ondansetron [Zofran Odt] 4 mg PO Q8H PRN PRN #10 tab 03/12/18 carvedilol 25 mg tablet 25 mg PO BID 03/14/18 Atorvastatin Calcium 20 mg PO QHS 03/17/18 Omeprazole 20 mg PO DAILY #30 capsule. 05/16/18 The following prescriptions were given: Omeprazole 20 mg PO DAILY #30 capsule. Primary Care Physician: Ric Mccrary MD [Primary Care Provider] - Test Results: Test results from this visit will be discussed in further detail at your follow-up appointment, if applicable. 05/16/18 1647 <Electronically signed by Jolene San MD> Date Jolene San MD CC: Ivania Martinez M.D.; Kaitlynn Green MD; Ric Mccrary MD BEDSIDE GLUCOSE Collected: 05/16/2018 Status: F Source: [place] 4:25 PM [facility] REPOSITORY TYPE CODE TESTS RESULT OUT OF REFERENCE UNITS RANGE LAB L501.080 70-110 mg/dL High BEDSIDE GLU 185 Result Comment: MANAGEMENT OF PATIENT CARE PER NURSING PROTOCOL Performed By: #### L501.080 #### [facility] Point of Care [address] [place] [address] 12 LEAD ELECTROCARDIOGRAM Observed: 05/16/2018 Status: F Source: [place] 1:49 PM [facility] REPOSITORY [facility] Cardiovascular Services [address] [place] [address] 12 Lead EKG 05/13/18 0447 MR#: [id number] Acct: [id number] Name: KOURTNEY REZA Rep #: [id number] : 1975 42 From: Kaitlynn Green MD Attending Dr: Jolene San MD Status: ADM IN Ordering Dr: Nahun Garcia DO Date: 05/13/18 Location: U Sex: F C Admitted: 05/12/18 Test Reason : AM EKG Blood Pressure : / mmHG Vent. Rate : 083 BPM Atrial Rate : 083 BPM P-R Int : 138 ms QRS Dur : 092 ms QT Int : 410 ms P-R-T Axes : 046 053 191 degrees QTc Int : 481 ms Normal sinus rhythm Moderate voltage criteria for LVH, may be normal variant Nonspecific T wave abnormality Prolonged QT Abnormal ECG Confirmed by KAITLYNN GREEN MD ([id number]), web editor SHANIA SOLITARIO ([id number]) on 05/16/2018 1:48:37 PM Referred By: JOSE Confirmed By:KAITLYNN GREEN MD 05/16/18 1348 Date Kaitlynn Green MD CC: Jolene San MD; Nahun Garcia DO; Ric Mccrary MD Signed 12 LEAD ELECTROCARDIOGRAM Observed: 05/16/2018 Status: F Source: [place] 1:45 PM [facility] REPOSITORY [facility] Cardiovascular Services [address] [place] [address] 12 Lead EKG 05/14/18 0506 MR#: [id number] Acct: [id number] Name: KOURTNEY REZA Rep #: [id number] : 1975 42 From: Kaitlynn Green MD Attending Dr: Jolene San MD Status: ADM IN Ordering Dr: Kaitlynn Green MD Date: 05/14/18 Location: [facility] Sex: F C Admitted: 05/12/18 Test Reason : AM EKG Blood Pressure : / mmHG Vent. Rate : 088 BPM Atrial Rate : 088 BPM P-R Int : 132 ms QRS Dur : 090 ms QT Int : 384 ms P-R-T Axes : 047 054 173 degrees QTc Int : 464 ms Normal sinus rhythm Minimal voltage criteria for LVH, may be normal variant Nonspecific T wave abnormality Prolonged QT Abnormal ECG Confirmed by KAITLYNN GREEN MD ([id number]), web editor SHANIA SOLITARIO ([id number]) on 05/16/2018 1:45:19 PM Referred By: JOSE Confirmed By:KAITLYNN GREEN MD 05/16/18 1345 Date Kaitlynn Green MD CC: Jolene San MD; Kaitlynn Green MD; Ric Mccrary MD Signed BEDSIDE GLUCOSE Collected: 05/16/2018 Status: F Source: [place] 11:19 AM [facility] REPOSITORY TYPE CODE TESTS RESULT OUT OF REFERENCE UNITS RANGE LAB L501.080 70-110 mg/dL High BEDSIDE GLU 115 Result Comment: MANAGEMENT OF PATIENT CARE PER NURSING PROTOCOL Performed By: #### L501.080 #### [facility] Point of Care [address] [place] [address] BEDSIDE GLUCOSE Collected: 05/16/2018 Status: F Source: [place] 6:21 AM [facility] REPOSITORY TYPE CODE TESTS RESULT OUT OF REFERENCE UNITS RANGE LAB L501.080 70-110 mg/dL High BEDSIDE GLU 143 Result Comment: MANAGEMENT OF PATIENT CARE PER NURSING PROTOCOL Performed By: #### L501.080 #### [facility] Point of Care [address] [place] [address] BEDSIDE GLUCOSE Collected: 05/15/2018 Status: F Source: [place] 9:09 PM [facility] REPOSITORY TYPE CODE TESTS RESULT OUT OF REFERENCE UNITS RANGE LAB L501.080 70-110 mg/dL High BEDSIDE GLU 188 Result Comment: MANAGEMENT OF PATIENT CARE PER NURSING PROTOCOL Performed By: #### L501.080 #### [facility] Point of Care [address] [place] [address] BEDSIDE GLUCOSE Collected: 05/15/2018 Status: F Source: [place] 4:45 PM [facility] REPOSITORY TYPE CODE TESTS RESULT OUT OF REFERENCE UNITS RANGE LAB L501.080 70-110 mg/dL High BEDSIDE GLU 192 Result Comment: MANAGEMENT OF PATIENT CARE PER NURSING PROTOCOL Performed By: #### L501.080 #### [facility] Point of Care [address] [place] [address] BEDSIDE GLUCOSE Collected: 05/15/2018 Status: F Source: [place] 12:45 PM [facility] REPOSITORY TYPE CODE TESTS RESULT OUT OF REFERENCE UNITS RANGE LAB L501.080 70-110 mg/dL High BEDSIDE GLU 114 Result Comment: MANAGEMENT OF PATIENT CARE PER NURSING PROTOCOL Performed By: #### L501.080 #### [facility] Point of Care [address] [place] [address] BEDSIDE GLUCOSE Collected: 05/15/2018 Status: F Source: [place] 11:46 AM [facility] REPOSITORY TYPE CODE TESTS RESULT OUT OF REFERENCE UNITS RANGE LAB L501.080 70-110 mg/dL High BEDSIDE GLU 131 Result Comment: MANAGEMENT OF PATIENT CARE PER NURSING PROTOCOL Performed By: #### L501.080 #### [facility] Point of Care [address] [place] [address] 12 LEAD ELECTROCARDIOGRAM Observed: 05/15/2018 Status: F Source: [place] 11:10 AM [facility] REPOSITORY [facility] Cardiovascular Services [address] [place] [address] 12 Lead EKG 05/12/18 1425 MR#: [id number] Acct: [id number] Name: KOURTNEY REZA Rep #: [id number] : 1975 42 From: Kaitlynn Green MD Attending Dr: Jolene San MD Status: ADM IN Ordering Dr: Zach Holt MD Date: 05/12/18 Location: U Sex: F C Admitted: 05/12/18 Test Reason : CP Blood Pressure : / mmHG Vent. Rate : 089 BPM Atrial Rate : 089 BPM P-R Int : 132 ms QRS Dur : 092 ms QT Int : 394 ms P-R-T Axes : 044 047 220 degrees QTc Int : 479 ms Normal sinus rhythm Moderate voltage criteria for LVH, may be normal variant Non specific T wave abnormality Prolonged QT Abnormal ECG Confirmed by PETER BEASLEY, KAITLYNN ([id number]), web editor GISELA YOUNG ([id number]) on 05/15/2018 11:10:20 AM Referred By: DANIE Confirmed By:KAITLYNN GREEN MD 05/15/18 1110 Date Kaitlynn Green MD CC: Jolene San MD; Zach Holt MD; Ric Mccrary MD Signed ABDOMEN LIMITED Observed: 05/15/2018 Status: F Source: [place] 8:43 AM [facility] REPOSITORY [facility] Imaging Services [address] [place] [address] Abdomen Limited MR#: [id number] Acct: [id number] Name: KOURTNEY REZA Rep #: [id number] : 1975 F 42 From: James Kahn MD PCP: Ric Mccrary MD Status: ADM IN Study: Abdomen Limited Date of Exam: 05/15/18 Exam# [id number] Ordering Dr: Wm Underwood MD STUDY: ABDOMINAL ULTRASOUND - RIGHT UPPER QUADRANT REASON FOR VISIT: Female, 42 years old. Pain. TECHNIQUE: Ultrasound evaluation of the right upper quadrant was performed with real-time and static ruiz-scale imaging. TECHNICAL QUALITY: Limited. Examination limited due to obesity. COMPARISON: CT scan 05/02/2018. FINDINGS: Liver: The liver measures 23 cm. There is increased echogenicity consistent with fatty infiltration. The bile ducts are within normal limits. There is hepatic color flow. The direction of portal flow is hepatopetal. There is no demonstrated mass lesion. Gallbladder: Normal distended gallbladder. The gallbladder wall measures 2 mm. There is a negative sonographic Escalante's sign. There is no pericholecystic fluid. There are no gallstones. Common Bile Duct (C.B.D.): The common bile duct measures 5 mm. Pancreas: Normal size of the head, body and tail of the pancreas. There is normal echogenicity of the pancreas. There is no demonstrated pancreatic mass or cyst. Right Kidney: Normal size of the right kidney. The right kidney measures 10.5 cm. Normal renal cortex. The right cortex measures 1.2 cm. There is no demonstrated renal mass or cyst. There is no right hydronephrosis. US/Abdomen Limited IMPRESSION: Fatty liver with hepatomegaly. No definite acute abnormality. Electronically Signed: James Kahn MD at 22:09 EDT , Service support , CC: Wm Underwood MD; Ric Mccrary MD Tester Operator Helper: Signed BEDSIDE GLUCOSE Collected: 05/15/2018 Status: F Source: [place] 6:47 AM [facility] REPOSITORY TYPE CODE TESTS RESULT OUT OF REFERENCE UNITS RANGE LAB L501.080 70-110 mg/dL High BEDSIDE GLU 144 Result Comment: MANAGEMENT OF PATIENT CARE PER NURSING PROTOCOL Performed By: #### L501.080 #### [facility] Point of Care [address] [place] [address] HH, HEMOGLOBIN AND Collected: 05/15/2018 Status: F Source: [place] HEMATOCRIT 6:20 AM [facility] REPOSITORY TYPE CODE TESTS RESULT OUT OF RANGE REFERENCE UNITS LAB L100.1300 12.0-15.0 g/dl Low HGB 8.2 LAB L100.1400 37-47 % Low HCT 27.1 Performed By: #### L100.0600 #### [facility] [address] [place], [address] BEDSIDE GLUCOSE Collected: 05/14/2018 Status: F Source: [place] 9:23 PM [facility] REPOSITORY TYPE CODE TESTS RESULT OUT OF REFERENCE UNITS RANGE LAB L501.080 70-110 mg/dL High BEDSIDE GLU 211 Result Comment: MANAGEMENT OF PATIENT CARE PER NURSING PROTOCOL Performed By: #### L501.080 #### [facility] Point of Care [address] [place] [address] BEDSIDE GLUCOSE Collected: 05/14/2018 Status: F Source: [place] 5:33 PM [facility] REPOSITORY TYPE CODE TESTS RESULT OUT OF REFERENCE UNITS RANGE LAB L501.080 70-110 mg/dL High BEDSIDE GLU 128 Result Comment: MANAGEMENT OF PATIENT CARE PER NURSING PROTOCOL Performed By: #### L501.080 #### [facility] Point of Care [address] [place] [address] BEDSIDE GLUCOSE Collected: 05/14/2018 Status: F Source: [place] 12:31 PM [facility] REPOSITORY TYPE CODE TESTS RESULT OUT OF REFERENCE UNITS RANGE LAB L501.080 70-110 mg/dL High BEDSIDE GLU 133 Result Comment: MANAGEMENT OF PATIENT CARE PER NURSING PROTOCOL Performed By: #### L501.080 #### [facility] Point of Care [address] [place] [address] BEDSIDE GLUCOSE Collected: 05/14/2018 Status: F Source: [place] 10:14 AM [facility] REPOSITORY TYPE CODE TESTS RESULT OUT OF REFERENCE UNITS RANGE LAB L501.080 70-110 mg/dL High BEDSIDE GLU 174 Result Comment: MANAGEMENT OF PATIENT CARE PER NURSING PROTOCOL Performed By: #### L501.080 #### [facility] Point of Care [address] [place] [address] BEDSIDE GLUCOSE Collected: 05/14/2018 Status: F Source: [place] 6:52 AM [facility] REPOSITORY TYPE CODE TESTS RESULT OUT OF REFERENCE UNITS RANGE LAB L501.080 70-110 mg/dL High BEDSIDE GLU 153 Result Comment: MANAGEMENT OF PATIENT CARE PER NURSING PROTOCOL Performed By: #### L501.080 #### [facility] Point of Care [address] [place] [address] CBC-COMPLETE BLOOD CNT Collected: 05/14/2018 Status: F Source: [place] NO DIFF 5:05 AM [facility] REPOSITORY Order Comment: Comments: heart cath protocol TYPE CODE TESTS RESULT OUT OF RANGE REFERENCE UNITS LAB L100.1000 4.4-11.0 K/mm3 Normal WBC 5.8 LAB L100.1200 4.2-5.4 M/mm3 Low RBC 2.84 LAB L100.1300 12.0-15.0 g/dl Low HGB 8.6 LAB L100.1400 37-47 % Low HCT 28.2 LAB L100.1500 81-99 fL High MCV 99.3 LAB L100.1600 27.0-32.0 pg Normal MCH 30.3 LAB L100.1700 32-36 g/gl Low MCHC 30.5 LAB L100.1810 11.6-14.6 % High RDW CV 15.6 LAB L100.1820 35.1-43.9 fl High RDW SD 53.5 LAB L100.1900 150-450 K/mm3 Low PLT 118 LAB L100.2000 6.2-12.0 fl Normal MPV 8.9 Performed By: #### L100.0500 #### [facility] [address] [place], [address] PROTHROMBIN TIME W/INR Collected: 05/14/2018 Status: F Source: [place] 5:05 AM [facility] REPOSITORY Order Comment: Comments: heart cath protocol TYPE CODE TESTS RESULT OUT OF RANGE REFERENCE UNITS LAB L300.4150 11.7-14.9 SECONDS Normal PROTIME 14.6 LAB L300.4200 Normal INR 1.1 Performed By: #### L300.3900, L300.4310 #### [facility] [address] [place], [address] PARTIAL THROMBOPLAST Collected: 05/14/2018 Status: F Source: [place] TIME 5:05 AM [facility] REPOSITORY Order Comment: Comments: heart cath protocol TYPE CODE TESTS RESULT OUT OF RANGE REFERENCE UNITS LAB L300.4310 24.1-36.2 Seconds Normal PTT 31.4 Performed By: #### L300.3900, L300.4310 #### [facility] [address] [place], [address] BASIC METABOLIC Collected: 05/14/2018 Status: F Source: [place] PROFILE (BMP) 5:05 AM [facility] REPOSITORY Order Comment: Comments: heart cath protocol TYPE CODE TESTS RESULT OUT OF RANGE REFERENCE UNITS LAB L501.0100 74-106 mg/dL High GLU 133 Result Comment: Fasting Glucose result greater than or equal to 126 mg/dL suggests DIABETES MELLITUS per A.D.A. criteria. Please note revised GLUCOSE reference range effective 2017. LAB L501.1000 7-18 mg/dL High BUN 53 LAB L501.1100 0.55-1.02 mg/dL High alert CREAT,SERUM 7.97 Result Comment: Critical Result(s) Called at: 06:00:37 05/14/2018 by: DENG BUI TO JUSTICE,RN PCU The validity of the calculated GFR AND GFRAA in patients over 70 years has not been determined. Clinical correlation is essential. LAB L501.1110 >60 mL/min Low EST GFR 6 Result Comment: Non- GFR Calc LAB L501.1115 >60 mL/min Low EST GFR - AA 7 Result Comment: GFR Calc LAB L501.1255 ml/min Normal Estimated CRCL 8.43 LAB L501.1300 10-20 RATIO Low BUN/CRE 6.6 LAB L501.2200 8.5-10. mg/dL Low 1 CA 7.9 LAB L501.5300 136-145 mmol/L Normal NA 136 LAB L501.5600 3.5-5.1 mmol/L High K 5.2 LAB L501.5900 98-107 mmol/L Normal CL 100 LAB L501.6100 21.0-32 mmol/L Normal .0 CO2 25.0 LAB L501.6200 5-15 Normal GAP 11 Performed By: #### L500.2500 #### [facility] [address] [place], [address] PARTIAL THROMBOPLAST Collected: 05/13/2018 Status: F Source: [place] TIME 10:05 PM [facility] REPOSITORY Order Comment: Comments: HEPARIN GTT TYPE CODE TESTS RESULT OUT OF REFERENCE UNITS RANGE LAB L300.4310 24.1-36.2 Seconds High PTT 40.2 Performed By: #### L300.4310 #### [facility] [address] [place], [address] BEDSIDE GLUCOSE Collected: 05/13/2018 Status: F Source: [place] 9:00 PM [facility] REPOSITORY TYPE CODE TESTS RESULT OUT OF REFERENCE UNITS RANGE LAB L501.080 70-110 mg/dL High BEDSIDE GLU 116 Result Comment: MANAGEMENT OF PATIENT CARE PER NURSING PROTOCOL Performed By: #### L501.080 #### [facility] Point of Care [address] [place] [address] URINALYSIS, COMPLETE Collected: 05/13/2018 Status: F Source: [place] 8:45 PM [facility] REPOSITORY Order Comment: Has pt arrived? Y Comments: heart cath protocol How was Urine Obtained? CLEAN CATCH TYPE CODE TESTS RESULT OUT OF RANGE REFERENCE UNITS LAB L400.3000 Yellow COLOR Normal Yellow LAB L400.3050 Clear Normal CLARITY Clear LAB L400.3200 Normal mg/dl High 50 GLUCOSE, UR LAB L400.3300 Negative mg/dL Normal BILIRUBIN URINE Negative LAB L400.3400 Negative mg/dl Normal KETONE UR Negative LAB L400.3465 1.002-1.030 Normal SP.GR. DIPSTX 1.015 LAB L400.3550 5.0 - 8.0 pH UR Normal 8.0 LAB L400.3600 Negative mg/dl High PROT DIPSTX 500 LAB L400.3700 Normal mg/dl Normal UROBILI Normal LAB L400.3750 Negative Normal NITRITE UR Negative LAB L400.3780 Negative /ul High 25 OCCULT BLOOD-UR LAB L400.3800 Negative /ul High LEUK 25 ESTERASE LAB L400.4050 0-5 /hpf WBC Normal 0-5 SEEN LAB L400.4100 0-5 /hpf 0 Normal RBC-UA SEEN LAB L400.4150 5-10 /hpf SQUAM Normal EPI 5-10 SEEN LAB L400.4300 None Seen /hpf Normal BACTERIA RARE LAB L400.4350 <or=2+ /hpf 0 Normal MUCUS, URINE SEEN Performed By: #### L400.0001 #### [facility] [address] [place], [address] ,URINE Collected: 05/13/2018 Status: F Source: [place] 8:45 PM [facility] REPOSITORY TYPE CODE TESTS RESULT OUT OF REFERENCE UNITS RANGE LAB L400.8000 Negative Normal HCGUQUAL Negative Result Comment: Very dilute urine specimens, as indicated by a low specific gravity, may not contain hobbies and crafts sales representative levels of hCG. If is still suspected, a first morning urine specimen should be collected 48 hours later and tested. Performed By: #### L400.7600 #### [facility] [address] [place], [address] BEDSIDE GLUCOSE Collected: 05/13/2018 Status: F Source: [place] 4:33 PM [facility] REPOSITORY TYPE CODE TESTS RESULT OUT OF RANGE REFERENCE UNITS LAB L501.080 70-110 mg/dL Normal BEDSIDE GLU 110 Result Comment: MANAGEMENT OF PATIENT CARE PER NURSING PROTOCOL Performed By: #### L501.080 #### [facility] Point of Care [address] [place] [address] PARTIAL THROMBOPLAST Collected: 05/13/2018 Status: F Source: [place] TIME 3:50 PM [facility] REPOSITORY Order Comment: Comments: HEPARIN GTT TYPE CODE TESTS RESULT OUT OF REFERENCE UNITS RANGE LAB L300.4310 24.1-36.2 Seconds High PTT 55.0 Performed By: #### L300.4310 #### [facility] [address] [facility] [id number] BEDSIDE GLUCOSE Collected: 05/13/2018 Status: F Source: CIARAN 11:18 AM [facility] REPOSITORY TYPE CODE TESTS RESULT OUT OF RANGE REFERENCE UNITS LAB L501.080 70-110 mg/dL Normal BEDSIDE GLU 92 Result Comment: MANAGEMENT OF PATIENT CARE PER NURSING PROTOCOL Performed By: #### L501.080 #### [facility] Point of Care [address] [place], [place] [id number] PARTIAL THROMBOPLAST Collected: 05/13/2018 Status: F Source: ONEIDA TIME 9:10 AM [facility] REPOSITORY Order Comment: Comments: time sensitive heparin drip TYPE CODE TESTS RESULT OUT OF REFERENCE UNITS RANGE LAB L300.4310 24.1-36.2 Seconds High PTT 49.9 Performed By: #### L300.4310 #### [facility] [address] [place], [address] BEDSIDE GLUCOSE Collected: 05/13/2018 Status: F Source: CIARAN 6:52 AM [facility] REPOSITORY TYPE CODE TESTS RESULT OUT OF REFERENCE UNITS RANGE LAB L501.080 70-110 mg/dL High BEDSIDE GLU 134 Result Comment: MANAGEMENT OF PATIENT CARE PER NURSING PROTOCOL Performed By: #### L501.080 #### [facility] Point of Care [address] [place], [place] [address] PARTIAL THROMBOPLAST Collected: 05/13/2018 Status: F Source: ONE[place] TIME 3:50 AM [facility] REPOSITORY Order Comment: Comments: time sensitive heparin drip TYPE CODE TESTS RESULT OUT OF REFERENCE UNITS RANGE LAB L300.4310 24.1-36.2 Seconds High PTT 57.6 Performed By: #### L300.4310 #### [facility] [address] [facility] [id number] BEDSIDE GLUCOSE Collected: 05/13/2018 Status: F Source: ONE[place] 3:25 AM [facility] REPOSITORY TYPE CODE TESTS RESULT OUT OF REFERENCE UNITS RANGE LAB L501.080 70-110 mg/dL High BEDSIDE GLU 146 Result Comment: MANAGEMENT OF PATIENT CARE PER NURSING PROTOCOL Performed By: #### L501.080 #### [facility] Point of Care [address] [place] [address] [address] [place], [place] [id number] BEDSIDE GLUCOSE Collected: 05/12/2018 Status: F Source: ONE[place] 9:43 PM [facility] REPOSITORY TYPE CODE TESTS RESULT OUT OF REFERENCE UNITS RANGE LAB L501.080 70-110 mg/dL High BEDSIDE GLU 115 Result Comment: MANAGEMENT OF PATIENT CARE PER NURSING PROTOCOL Performed By: #### L501.080 #### [facility] Point of Care [address] [place], [place] [id number] PARTIAL THROMBOPLAST Collected: 05/12/2018 Status: F Source: [place] TIME 9:37 PM [facility] REPOSITORY Order Comment: Comments: HEPARIN GTT TYPE CODE TESTS RESULT OUT OF REFERENCE UNITS RANGE LAB L300.4310 24.1-36.2 Seconds High PTT 79.1 Performed By: #### L300.4310 #### [facility] [address] [place] [address]. [facility] [id number] TROPONIN-I Collected: 05/12/2018 Status: F Source: ONE[place] 9:37 PM [facility] REPOSITORY Order Comment: 'TROP' Serial specimen #1, #2 or #3: 3 ABLE TO COLLECT AT 2130 WITH OTHER LABS PER NAILA TEJADA TYPE CODE TESTS RESULT OUT OF RANGE REFERENCE UNITS LAB L501.4010 <0.045 ng/mL Normal 0.027 TROPONIN-I Result Comment: TROPONIN-I EXPECTED VALUES <0.045 Negative 0.045 - 0.590 Consistent with Cardiac Damage > OR = 0.600 Critical Value Not every elevated troponin is indicative of [place]. These values should be used with clinical judgement in examining the patient's clinical picture for diagnosis. To establish a diagnosis of [place] versus myocardial injury, there must be a demonstrated rise and/or fall in the troponin values, in addition to ischemic symptoms, EKG changes, new regional wall motion abnormality, and/or angiographical evidence. PLEASE NOTE: REFERENCE RANGES EDITED 17 Performed By: #### L501.4010 #### [facility] [address] [facility] [place], [address] CONSULTATION Observed: 05/12/2018 Status: F Source: ONE[place] 6:35 PM [facility] REPOSITORY [facility] Medical Records Department [address] [facility] [place] [address] Consultation 05/12/18 1743 MR#: [id number] Acct: [id number] Name: KOURTNEY REZA Rep #: [id number] : 1975 42 From: Kaitlynn Green MD PCP: Ric Mccrary MD Status: ADM IN Location: [place] [address] Problem List (1) Chest pain Status: Acute Qualifiers: Chest pain type: precordial pain Qualified Code(s): R07.2 - Precordial pain (2) Abnormal electrocardiogram [ECG] [EKG] Status: Acute (3) CAD (coronary artery disease) Status: Chronic Qualifiers: Coronary Disease-Associated Artery/Lesion type: ute artery Koi vs. transplanted heart: ute heart (4) Stented coronary artery Status: Chronic Comment: FFR of LAD 0.82; VIKY of mid LAD with 2.5 X 24 mm Promus Synergy, OM <50% stenosis per Dr. Underwood @ [facility] (5) S/P repair of PDA (patent ductus arteriosus) Status: Resolved Comment: At young age (6) Hyperlipidemia Status: Chronic Qualifiers: Hyperlipidemia type: unspecified Qualified Code(s): E78.5 - Hyperlipidemia, unspecified (7) HTN (hypertension) Status: Chronic Qualifiers: (8) Diabetes mellitus type 1 Status: Chronic Qualifiers: (9) ESRD (end stage renal disease) on dialysis Status: Chronic Reason for Consult Date of Consultation: 05/12/18 History of Present Illness: The patient is a 42 year old white female who is referred for evaluation of chest discomfort and an abnormal ECG superimposed upon a history of underlying CAD status post PCI, status post PDA closure, hyperlipidemia, hypertension, diabetes mellitus, and end-stage renal disease on chronic hemodialysis. The patient notes that recently she has been developing chest discomfort. She describes a variety of chest discomforts. Some of her discomforts are left-sided pressure sensation. Some of her discomforts or chest burning radiating into her neck. She has had associated shortness of breath/dyspnea. She states for 2 days she had nausea and emesis. She notes that her stools through her colostomy have been loose. She has not had near syncope or syncope although she states when she has her discomfort she sometimes feels as if she may lose consciousness. She also notes she recently had a fever. She states yesterday she believes her temperature was 101. Today at dialysis she states she was told she was afebrile. She has not missed dialysis. She states she was going through dialysis today and was within approximately 1 hour of finishing dialysis when she noted recurrent discomfort. She states her dialysis was terminated and she was subsequently referred to the [facility] emergency department for further evaluation and care. There she underwent evaluation with a troponin I level which was negative. She had an ECG which suggested sinus rhythm with voltage criteria for LVH and nonspecific T wave abnormality. This appeared to be somewhat different from an ECG from 04/17/2018 at which time the nonspecific T wave abnormality was not present. However, it appeared to be similar to an ECG from 03/17/2018 at which time the T wave abnormality was present. The patient has undergone recent cardiovascular evaluation. In October of this year she had a transthoracic echocardiogram. The results are as noted below. In February of this year she underwent diagnostic cardiac catheterization which subsequently led to LAD PTCA/VIKY with the results as noted below. In March of this year she underwent a dobutamine stress echocardiogram which was reported as being negative for ECG or echocardiographic criteria for myocardial ischemia. She does note that her symptoms are somewhat similar to symptoms she had before her PCI. [] Past Medical History Allergies/Adverse Reactions: Allergies latex Allergy (Verified 05/02/18 09:29) Rash levofloxacin [From Levaquin] Adverse Reaction (Verified 05/02/18 09:29) PT CAN'T REMEMBER PT CAN'T REMEMBER metoclopramide HCl [From Reglan] Adverse Reaction (Verified 05/02/18 09:29) Nausea NSAIDS (Non-Steroidal Anti-Inflamma Adverse Reaction (Verified 05/02/18 09:29) kidney function oxycodone HCl [From Percocet] Adverse Reaction (Verified 05/02/18 09:29) HALLUCINATIONS Home Medications: Ambulatory Orders Medication Instructions Recorded Aspirin [Aspirin, Baby] 81 mg PO DAILY@0800 01/26/16 Calcium Acetate [Phoslo Gel Cap] 1,334 mg PO TIDCM 01/26/16 Ergocalciferol [Vitamin D] 50,000 unit PO FR 01/26/16 Past Medical History (Chronic Problems): Chronic Problems (Last Updated 02/27/18 @ 10:29 by Pricila Olson) CAD (coronary artery disease) (Chronic) Stented coronary artery (Chronic 02/26/18) FFR of LAD 0.82; VIKY of mid LAD with 2.5 X 24 mm Promus Synergy, OM <50% stenosis per Dr. 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) S/P PTCA/VIKY to mid LAD in February 2018 OM #1 noted to be 50%; ESRD (end stage renal disease) on dialysis (Chronic) Decubitus ulcer, stage III (Chronic) Anemia, chronic disease (Chronic) Pilonidal cyst with abscess (Chronic) GABRIEL (obstructive sleep apnea) (Chronic) Depression (Chronic) Anxiety (Chronic) HTN (hypertension) (Chronic) Diabetes mellitus type 1 (Chronic) Hyperlipidemia (Chronic) Obesity (BMI 30.0-34.9) (Chronic) Gastroparesis (Chronic) Surgical History: appendectomy, hysterectomy - and BSO, - - c-sections, L breast I+D for abscess, fistula placement LUE, L ankle surgery, appendectomy, PDA repair. Excision pilonidal cyst ulcer about 4 years ago. Colostomy placed due to rectal abscess/wound, patent ductus repair, drug-eluting stent placement left anterior descending coronary artery February 2018 Psychiatric History: No pertinent psych hx [employer] SOFTWARE [employer] History: No pertinent [employer] SOFTWARE [employer]ANT history - *Family History Maternal History Items: Cancer, COPD, Diabetes, Hypertension, Renal Disease, Stroke Paternal History Items: Diabetes Sibling History Items: Cancer, Diabetes Lives: Spouse/ Significant Other Smoking Status: Former smoker Tobacco Use: Non-smoker Alcohol: None Drugs: None Review of Systems - Review of Systems General: Reports: Fever. Denies: Fatigue, Night Sweats Cardiovascular: Reports: Chest Discomfort, Chest Discomfort at Rest, Chest Discomfort with Exertion, Shortness of Breath, Shortness of Breath at Rest, Shortness of Breath with Exertion, Near Syncope. Denies: Orthopnea, PND, Peripheral Edema, Palpitations, Lightheadedness, Dizziness, Syncope Respiratory: Reports: Shortness of Breath. Denies: Cough, Sputum Production, Hemoptysis Gastrointestinal: Denies: Hematemesis, Hematochezia, Melena Genitourinary: Denies: Dysuria, Hematuria Skin: Denies: Rash Subjectve: This is a 42-year-old white female who appears to be resting reasonably comfortably at the moment in no acute distress. Objective: Vital Signs Temp Pulse Resp BP Pulse Ox 98.3 F 88 16 152/75 H 93 05/12/18 16:13 05/12/18 16:13 05/12/18 16:13 05/12/18 16:13 05/12/18 16:13 Oxygen Delivery Method Room Air Weight: 191 lb 9.307 oz Body Mass Index (BMI) 30.9 Finger Stick Blood Glucose 118 General: Awake, Alert, Oriented x 3, No Acute Distress HEENT: Atraumatic, Normocephalic, PERRL, EOMI, Sclera Non Icteric Oral: Moist Mucosa Neck: Supple, Good ROM, No JVD Lungs: Clear to auscultation Cardiovascular: Regular Rhythm, Normal S1, Normal S2 Abdomen: Bowel Sounds Present, Soft, Non Tender Extremities: No Cyanosis, No Clubbing, No edema Psych/Mental Status: Appropriate, Normal Affect 05/12/18 14:28: WBC 4.1 L, RBC 2.97 L, Hgb 9.1 L, Hct 28.6 L, MCV 96.3, MCH 30.6, MCHC 31.8 L, RDW 16.2 H, RDW Differential 57.1 H, Plt Count 95 L, MPV 8.1, Immature Gran % (Auto) 0.200, Neut % (Auto) 72.2 H, Lymph % (Auto) 16.4 L, Spalding % (Auto) 6.8, Eos % (Auto) 4.4, Baso % (Auto) 0.0, Absolute Neuts (auto) 3.0, Total Counted Not Reportable 05/12/18 14:28: Sodium 137, Potassium 3.7, Chloride 98, Carbon Dioxide 32.0, Anion Gap 7, BUN 32 H, Creatinine 4.96 H, Est GFR (MDRD) Af Amer 12 L, Est GFR (MDRD) Non-Af 10 L, BUN/Creatinine Ratio 6.5 L, Glucose 248 H, Calcium 7.4 L, Troponin I 0.023 05/12/18 14:28: PT 14.2, INR 1.1, APTT 35.6 Rhythm: Sinus rhythm EKG: NSR; consider voltage criteria for LVH; nonspecific T wave abnormality ECHO: 11/15/2017: Left ventricle reported as dilated, mild to moderate global hypokinesis, LVEF 45%, mild concentric LVH, mild left atrial enlargement. Stress Test: 04/17/2018: Dobutamine stress echocardiogram: Reported negative for ischemia by EKG and echocardiographic criteria. Cardiac Cath: 02/26/2018: Left ventricle noted with an LVEF of 55%; left main coronary artery normal; LAD with mid 75% stenosis; LCx with OM1 with mild to moderate luminal irregularities up to 50% stenosis; RCA with mild calcification and right posterior lateral ventricular branch with mild luminal irregularities less than 30% PCI: 02/26/2018: LAD PTCA/VIKY with a Promus Synergy 2.5 x 24 mm stent CXR: Preliminary evaluation: no acute cardiopulmonary disease process: Please see official report Assessment/Plan 1. Chest pain The patient presents with chest discomfort. She states this is similar to discomfort she had prior to her PCI. She does have symptoms that are somewhat concerning for angina pectoris. Her evaluation thus far has demonstrated negative troponin I levels. Her ECG does demonstrate changes similar to changes she had in February prior to her PCI which subsequently appeared to be absent in March. At the present time she will continue to be followed. Her cardiac enzymes and ECGs will be followed. Depending upon her clinical course she may need reevaluation in the diagnostic cardiac catheterization laboratory. In the meantime she will continue medical management. Her nitrate dose is being increased. Additional medication that may be beneficial for her, depending upon her response, may include agents such as ranolazine/Ranexa. 2. Abnormal electrocardiogram She does have an abnormal ECG as previously described. Again there are changes similar to what she had prior to her February PCI. She will continue evaluation care as noted above with follow- up of her ECG. 3. CAD s/p PCI She does have a history of CAD status post PCI as previously described. She will continue to be monitored. Her cardiac enzymes will be followed. She will continue medical therapy. Again she may need repeat cardiac catheterization for further evaluation. 4. S/P repair of PDA He does have a history of a remote PDA repair. There is been no obvious reported objective findings raising concerns about this issue. 5. Hyperlipidemia The patient will continue risk factor modification and medical management as deemed appropriate. 6. Hypertension The patient's blood pressure will be followed. She will continue medical therapy. 7. Diabetes mellitus The patient will continue under the care of internal medicine. 8. ESRD on dialysis The patient has been evaluated by nephrology. She will continue dialysis under the direction of nephrology. If she does go for repeat diagnostic cardiac catheterization then dialysis will need to be coordinated with this procedure. Comment: The patient's case was discussed and reviewed with patient and Dr. Garcia. This note was generated with [employer] dictation software. It may contain incorrect words, spelling, and punctuation that were not noted in checking the note before signing. 05/12/18 1835 <Electronically signed by Kaitlynn Green MD> Date Kaitlynn Green MD Cosigner Signature (if applicable): Date CC: Wm Underwood MD; Ivania Martinez M.D.; Kaitlynn Green MD; Ric Mccrary MD Signed TROPONIN-I Collected: 05/12/2018 Status: F Source: CIARAN 5:34 PM [facility] REPOSITORY Order Comment: 'TROP' Serial specimen #1, #2 or #3: 2 TYPE CODE TESTS RESULT OUT OF RANGE REFERENCE UNITS LAB L501.4010 <0.045 ng/mL Normal 0.022 TROPONIN-I Result Comment: TROPONIN-I EXPECTED VALUES <0.045 Negative 0.045 - 0.590 Consistent with Cardiac Damage > OR = 0.600 Critical Value Not every elevated troponin is indicative of [place]. These values should be used with clinical judgement in examining the patient's clinical picture for diagnosis. To establish a diagnosis of [place] versus myocardial injury, there must be a demonstrated rise and/or fall in the troponin values, in addition to ischemic symptoms, EKG changes, new regional wall motion abnormality, and/or angiographical evidence. PLEASE NOTE: REFERENCE RANGES EDITED 17 Performed By: #### L501.4010 #### [facility] [address] [place], [address] BEDSIDE GLUCOSE Collected: 05/12/2018 Status: F Source: ONEIDA 4:48 PM [facility] REPOSITORY TYPE CODE TESTS RESULT OUT OF REFERENCE UNITS RANGE LAB L501.080 70-110 mg/dL High BEDSIDE GLU 218 Result Comment: MANAGEMENT OF PATIENT CARE PER NURSING PROTOCOL Performed By: #### L501.080 #### [facility] Point of Care [address] [facility] [place] [address] HISTORY AND PHYSICAL Observed: 05/12/2018 Status: F Source: ONE[place] EXAM 4:47 PM [facility] REPOSITORY [facility] Medical Records Department [address] [facility] [place] [address] History and Physical 05/12/18 1624 MR#: [id number] Acct: [id number] Name: KOURTNEY REZA Rep #: [id number] : 1975 42 From: Nahun Garcia DO PCP: Ric Mccrary MD Status: ADM IN Y Location: [place] [id number] Problem List (1) Chest pain Status: Acute Qualifiers: Chest pain type: precordial pain Qualified Code(s): R07.2 - Precordial pain History of Present Illness Date of Admission: 05/12/18 Chief Complaint: Chest pain The patient is a 42 year old F who was seen in the emergency room at [facility] with chief complaint of precordial chest pain in her left upper chest area radiating into her left neck area. She states she has been having it off and on for several days, today she was at dialysis when the discomfort began, she states that this chest discomfort is like a stabbing pain, she states that it only last for 10 seconds and it is brought on more with activity than at rest. Patient has a history of coronary artery disease and underwent stent placement in February 2018. She had an echo stress done and March of this year that was negative. EKG obtained in the emergency room-patient states she was probably having chest pain at the time-shows T wave depression in the inferior and lateral wall leads, this is similar to an EKG that was done in February of this year. Her last EKG done in March of this year that we have on file here does not show these T wave inversions. She had a chest x-ray which showed no acute findings, labs were remarkable for a white blood cell count of 4.1, hemoglobin of 9.1, creatinine of 4.96, BUN of 32, and glucose of 248. Patient's troponin was 0.023. Patient was started on a heparin drip by the emergency room physician and cardiology was contacted and she will be admitted for unstable angina to PCU. She will be seen in consultation by cardiology. Past Medical History Past Medical History (Chronic Problems): Chronic Problems (Last Updated 02/27/18 @ 10:29 by Pricila Olson) Stented coronary artery (Chronic 02/26/18) FFR of LAD 0.82; VIKY of mid LAD with 2.5 X 24 mm Promus Synergy, OM <50% stenosis per Dr. 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) S/P PTCA/VIKY to mid LAD in February 2018 OM #1 noted to be 50%; ESRD (end stage renal disease) on dialysis (Chronic) Decubitus ulcer, stage III (Chronic) Anemia, chronic disease (Chronic) Pilonidal cyst with abscess (Chronic) GABRIEL (obstructive sleep apnea) (Chronic) Depression (Chronic) Anxiety (Chronic) HTN (hypertension) (Chronic) Diabetes mellitus type 1 (Chronic) Hyperlipidemia (Chronic) Obesity (BMI 30.0-34.9) (Chronic) Gastroparesis (Chronic) Medical History: Medical History (Last Updated 02/27/18 @ 10:29 by Pricila Olson) 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) I25.10 S/P PTCA/VIKY to mid LAD in February 2018 OM #1 noted to be 50%; ESRD (end stage renal disease) on dialysis (Chronic) N18.6, Z99.2 Decubitus ulcer, stage III (Chronic) L89.93 Anemia, chronic disease (Chronic) D63.8 Pilonidal cyst with abscess (Chronic) L05.01 GABRIEL (obstructive sleep apnea) (Chronic) G47.33 HTN (hypertension) (Chronic) I10 Nonischemic cardiomyopathy (Resolved) I42.8 Diabetes mellitus type 1 (Chronic) Hyperlipidemia (Chronic) E78.5 Obesity (BMI 30.0-34.9) (Chronic) E66.9 Gastroparesis (Chronic) K31.84 Allergies latex Allergy (Verified 05/02/18 09:29) Rash levofloxacin [From Levaquin] Adverse Reaction (Verified 05/02/18 09:29) PT CAN'T REMEMBER PT CAN'T REMEMBER metoclopramide HCl [From Reglan] Adverse Reaction (Verified 05/02/18 09:29) Nausea NSAIDS (Non-Steroidal Anti-Inflamma Adverse Reaction (Verified 05/02/18 09:29) kidney function oxycodone HCl [From Percocet] Adverse Reaction (Verified 05/02/18 09:29) HALLUCINATIONS Home Medications: Ambulatory Orders Medication Instructions Recorded Aspirin [Aspirin, Baby] 81 mg PO DAILY@0800 01/26/16 Calcium Acetate [Phoslo Gel Cap] 1,334 mg PO TIDCM 01/26/16 Ergocalciferol [Vitamin D] 50,000 unit PO FR 01/26/16 Surgical History: Surgical History (Last Updated 02/27/18 @ 10:29 by Pricila Olson) Stented coronary artery (Chronic) Onset Date: 02/26/18 Z95.5 FFR of LAD 0.82; VIKY of mid LAD with 2.5 X 24 mm Promus Synergy, OM <50% stenosis per Dr. Underwood @ [facility] S/P repair of PDA (patent ductus arteriosus) (Resolved) Z98.890, Z87.74 At young age Surgical History: appendectomy, hysterectomy - and BSO, - - c-sections, L breast I+D for abscess, fistula placement LUE, L ankle surgery, appendectomy, PDA repair. Excision pilonidal cyst ulcer about 4 years ago. Colostomy placed due to rectal abscess/wound, patent ductus repair, drug-eluting stent placement left anterior descending coronary artery February 2018 Psychiatric History: No pertinent psych hx [employer] History: No pertinent [employer]ANT history Lives: Spouse/ Significant Other Smoking Status: Former smoker Tobacco Use: Non-smoker Alcohol: None Drugs: None - *Family History Maternal History Items: Cancer, COPD, Diabetes, Hypertension, Renal Disease, Stroke Paternal History Items: Diabetes Sibling History Items: Cancer, Diabetes Review of Systems Constitutional: Denies: Anorexia, Chills, Fever, Night Sweats, Weakness, Weight Change Eyes: Denies: Blurred vision, Cataracts, Conjunctivae Inflammation, Double vision, Drainage HEENT: Denies: Difficulty Hearing, Difficulty Swallowing, Dysphasia, Ear Pain, Eye Pain, Head Aches, Hearing Changes, Nasal bleeding, Nasal Congestion, Post Nasal Drip Cardiovascular: Reports: Chest Pain. Denies: Claudication, Chest Pressure, Chest Tightness, Edema, Heaviness, Light Headedness, Orthopnea, Palpitations, Paroxysmal Noc. Dyspnea, Syncope Respiratory: Denies: Cough, Hemoptysis, Pleuritic Pain, Shortness of Breath, Shortness of breath at rest, Shortness of breath upon exertion Gastrointestinal: Denies: Abdominal Pain, Constipation, Diarrhea, Hematemesis, Hematochezia, Nausea, Melena, Vomiting Genitourinary: Denies: Dysuria, Frequency, Hematuria, Hesitancy, Urgency Gynecological: Denies: Breast symptoms Musculoskeletal: Denies: Back Pain, Foot Pain, Hand Pain, Joint Pain, Joint stiffness, Joint swelling, Joint Tenderness, Leg Pain Skin: Denies: Dryness, Pruritis, Rash Neurological: Denies: Blurred vision, Double vision, Slurred speech, Difficulty swallowing, Focal weakness, Headaches, Numbness, Tingling Psychiatric: Denies: Anxiety, Depression, Homicidal Ideations, Suicidal Ideations Endocrine: Denies: Change in Body Habitus, Heat/ Cold Intolerance, Polydipsia, Polyuria Hematologic/ Lymphatic: Denies: Adenopathy, Anemia, Easy Bruising, Easy Bleeding, Petechiae, Purpura VTE Information - Inpt Only VTE Present on Admission: No VTE Mechan Device Prophylaxis: None VTE Pharm Prophylaxis ordered?: No Reason prophylaxis not ordered:: Medical Contraindication - on continuous heparin drip - Physical Exam General: Alert, Oriented x3, Cooperative, No apparent distress, Well developed, Well nourished HEENT: Atraumatic, PERRLA, EOMI, Normocephalic Oral: Moist Mucosa Neck: Supple, Trachea Midline, Thyroid Normal Size and Texture Lungs: Clear to auscultation, Normal air movement, No rhonchi, No wheeze, No rales Cardiovascular: Regular rate, Regular Rhythm, Normal S1, Normal S2, No murmurs, No Ectopic Activity, PMI Normal, No rub noted, No Gallop Abdomen: Bowel Sounds Present, Soft, Non Tender, Non-Distended, No hernias noted Extremities: No clubbing, No cyanosis, No edema, Capillary Refill Less than 3 Seconds Skin: No rashes, No breakdown Musculoskeletal: No Tenderness to Palpation of Joints or Extremities Neurological: Cranial nerves II-XII grossly intact, Neuro grossly intact, Sensory exam intact to light touch and pain, Coordination normal Psych/Mental Status: Normal Affect, Appropriate, Alert and oriented to time, place, person, mood and affect Vital Signs Temp Pulse Resp BP Pulse Ox 98.3 F 88 16 152/75 H 93 05/12/18 16:13 05/12/18 16:13 05/12/18 16:13 05/12/18 16:13 05/12/18 16:13 Oxygen Delivery Method Room Air Weight: 88.1 kg Body Mass Index (BMI) 31.3 Finger Stick Blood Glucose 118 Laboratory Tests Past 24 Hrs WBC 4.1 L Assessment/Plan All Active Problems (Last Updated 02/27/18 @ 10:29 by Pricila Olson) Nausea AND vomiting (Acute) Migraine (Acute) Metabolic encephalopathy (Acute) Abnormal electrocardiogram [ECG] [EKG] (Acute) Chest pain (Acute) Tooth abscess (Resolved) Intractable nausea and vomiting (Resolved) Pneumonia (Resolved) Pulmonary edema (Resolved) Hyperkalemia (Resolved) Atypical chest pain (Resolved) Acute hypoxic respiratory failure (Resolved) Pulmonary edema (Resolved) Clostridium difficile enterocolitis (Resolved) Necrotizing myositis (Resolved) Nonischemic cardiomyopathy (Resolved) S/P repair of PDA (patent ductus arteriosus) (Resolved) Dysmenorrhea (Resolved) Hx of necrotizing fascIItis (Resolved) Iron deficiency anemia due to chronic blood loss (Resolved) Systolic congestive heart failure (Resolved) #1 unstable angina-in a patient with known coronary artery disease-patient will be admitted to U, she will be maintained on a heparin drip, she will be seen in consultation by cardiology, cardiac enzymes will be cycled. Patient's Imdur will be increased to 120 mg daily, she was given an extra Imdur 60 mg now #2 end-stage renal disease-nephrology will see the patient in consultation #3 type 1 diabetes-patient's blood sugars will be monitored and she will be given insulin per protocol and her home insulin dosage #4 hypertension #5 nonischemic cardiomyopathy-most recent EF 45% on echocardiogram in March 2018 #6 hyperlipidemia Code Visit Inpatient E AND M: [id number] Init Hosp L3 05/12/18 1647 <Electronically signed by Nahun Garcia DO> Date Nahun Garcia DO Cosigner Signature: Date (if applicable) CC: Nahun Garcia DO; Ric Mccrary MD Signed CONSULTATION Observed: 05/12/2018 Status: F Source: [place] 4:10 PM [facility] REPOSITORY [facility] Medical Records Department [address] [place] [address] Consultation 05/12/18 1607 MR#: [id number] Acct: [id number] Name: KOURTNEY REZA Rep #: [id number] : 1975 42 From: Chey Martinez MD PCP: Ric Mccrary MD Status: ADM IN Y Location: [place] [address] Problem List (1) ESRD (end stage renal disease) on dialysis Status: Chronic Consultation - Renal 05/12/18 PCP/ Referring MD: Requesting physician: Dr garcia Primary care physician: Ric Mccrary Reason for Consultation:: ESRD - History of Present Illness History of Present Illness: The patient is a 42 year old F well known to us. ESRD on HD TTS schedule. last HD today earlier recently was admitted here at [facility]. had stents placed by Dr Underwood. came back with chest pain, now on heparin drip feels somewhat better since admission no breathing issues access is AVF - Allergies Allergies: Allergies latex Allergy (Verified 05/02/18 09:29) Rash levofloxacin [From Levaquin] Adverse Reaction (Verified 05/02/18 09:29) PT CAN'T REMEMBER PT CAN'T REMEMBER metoclopramide HCl [From Reglan] Adverse Reaction (Verified 05/02/18 09:29) Nausea NSAIDS (Non-Steroidal Anti-Inflamma Adverse Reaction (Verified 05/02/18:29) kidney function oxycodone HCl [From Percocet] Adverse Reaction (Verified 05/02/18:) HALLUCINATIONS - Current Medications Current Medications: Current Medications Acetaminophen (Tylenol) 650 mg PO Q6H PRN PRN PRN Reason: Mild Pain (1-3)/Temp > 100.7 F Aspirin (Aspirin, Baby) 81 mg PO DAILY@0800 [facility] Atorvastatin Calcium (Lipitor) 20 mg PO QHS [facility] Calcium Acetate (Phoslo Gel Cap) 1,334 mg PO TIDCM [facility] Carvedilol (Coreg) 25 mg PO BID [facility] Clopidogrel Bisulfate (Plavix) 75 mg PO DAILY [facility] Heparin Sodium (Porcine) (Heparin Na) 0 unit IV UD PRN; Protocol Heparin Sodium/Dextrose () 25,000 units in 250 mls @ 12 mls/hr IV .[id number] [facility]; Protocol Last Admin: 05/12/18 15:37 Dose: 12 mls/hr Isosorbide Mononitrate (Imdur) 60 mg PO X1 ONE Stop: 05/12/18 15:54 Isosorbide Mononitrate (Imdur) 120 mg PO DAILY [facility] Lisinopril (Zestril) 40 mg PO DAILY [facility] Magnesium Hydroxide (Milk Of Magnesia) 30 ml PO DAILY PRN PRN Reason: Constipation Morphine Sulfate () 2 - 4 mg IV Q4H PRN PRN PRN Reason: MOD-SEVERE PAIN (4-10/10) Non-Formulary Medication (Fluoxetine Hcl [Fluoxetine Hcl]) 40 mg PO DAILY [facility] Non-Formulary Medication (Insulin Aspart [Novolog Flexpen]) 10 units SC TIDCM [facility] Non-Formulary Medication (Insulin Glargine,Hum.Rec.Anlog) 4 unit SQ QHS [facility] Non-Formulary Medication (Omeprazole Magnesium [Prilosec Otc]) 20 mg PO DAILY [facility] Promethazine HCl (Phenergan Tablet) 25 mg PO Q6H PRN PRN PRN Reason: NAUSEA Sodium Bicarbonate (Sodium Bicarbonate) 650 mg PO 4X/DAY [facility] - Past Medical History Past Medical History (Chronic Problems): Chronic Problems (Last Updated 02/27/18 @ 10:29 by Pricila Olson) Stented coronary artery (Chronic 02/26/18) FFR of LAD 0.82; VIKY of mid LAD with 2.5 X 24 mm Promus Synergy, OM <50% stenosis per Dr. 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) S/P PTCA/VIKY to mid LAD in February 2018 OM #1 noted to be 50%; ESRD (end stage renal disease) on dialysis (Chronic) Decubitus ulcer, stage III (Chronic) Anemia, chronic disease (Chronic) Pilonidal cyst with abscess (Chronic) GABRIEL (obstructive sleep apnea) (Chronic) Depression (Chronic) Anxiety (Chronic) HTN (hypertension) (Chronic) Diabetes mellitus type 1 (Chronic) Hyperlipidemia (Chronic) Obesity (BMI 30.0-34.9) (Chronic) Gastroparesis (Chronic) - Past Surgical History Surgical History: appendectomy, hysterectomy - and BSO, - - c-sections, L breast I+D for abscess, fistula placement LUE, L ankle surgery, appendectomy, PDA repair. Excision pilonidal cyst ulcer about 4 years ago. Colostomy placed due to rectal abscess/wound, patent ductus repair - Social History Smoking Status: Former smoker - Family History Maternal History Items: Cancer, COPD, Diabetes, Hypertension, Renal Disease, Stroke Paternal History Items: Diabetes Sibling History Items: Cancer, Diabetes Review of Systems Constitutional: Denies: Chills, Fever, Weight Change HEENT: Denies: Head Aches, Sinus Congestion, Sinus Drainage Cardiovascular: Denies: Chest Pain, Palpitations Respiratory: Denies: Cough, Shortness of breath at rest, Sputum production Gastrointestinal: Denies: Abdominal Pain, Nausea, Vomiting Genitourinary: Denies: Dysuria Musculoskeletal: Denies: Joint Pain, Joint Tenderness Skin: Denies: Rash, Wounds Neurological: Denies: Numbness, Tingling, Focal weakness Psychiatric: Denies: Anxiety, Depression, Homicidal Ideations, Suicidal Ideations Hematologic/ Lymphatic: Denies: Easy Bruising, Easy Bleeding - Physical Exam General: Alert, Oriented x3, Cooperative HEENT: Atraumatic, PERRLA, EOMI, Normocephalic Neck: Supple, No JVD, Negative Carotid Bruits Lungs: Clear to auscultation, Normal air movement Cardiovascular: Regular rate, No murmurs Abdomen: Bowel Sounds Present, Soft, Non Tender Extremities: No edema, Capillary Refill Less than 3 Seconds Skin: No rashes, No breakdown Musculoskeletal: No Tenderness to Palpation of Joints or Extremities Neurological: Cranial nerves II-XII grossly intact Psych/Mental Status: Normal Affect, Appropriate Vital Signs Temp Pulse Resp BP Pulse Ox 98.2 F 89 16 170/81 H 96 05/12/18 14:22 05/12/18 15:37 05/12/18 14:22 05/12/18 15:37 05/12/18 14:29 Oxygen Delivery Method Room Air Weight: 88.1 kg Body Mass Index (BMI) 31.3 Finger Stick Blood Glucose 118 Laboratory Tests Past 24 Hrs WBC 4.1 L Assessment/Plan All Active Problems (Last Updated 02/27/18 @ 10:29 by Pricila Olson) Nausea AND vomiting (Acute) Migraine (Acute) Metabolic encephalopathy (Acute) Abnormal electrocardiogram [ECG] [EKG] (Acute) Chest pain (Acute) Tooth abscess (Resolved) Intractable nausea and vomiting (Resolved) Pneumonia (Resolved) Pulmonary edema (Resolved) Hyperkalemia (Resolved) Atypical chest pain (Resolved) Acute hypoxic respiratory failure (Resolved) Pulmonary edema (Resolved) Clostridium difficile enterocolitis (Resolved) Necrotizing myositis (Resolved) Nonischemic cardiomyopathy (Resolved) S/P repair of PDA (patent ductus arteriosus) (Resolved) Dysmenorrhea (Resolved) Hx of necrotizing fascIItis (Resolved) Iron deficiency anemia due to chronic blood loss (Resolved) Systolic congestive heart failure (Resolved) ESRD. on HD TTS schedule. Called dialysis unit. she had most of her treatment except for last one hour. currently labs looks ok. CXR looks ok. hold further dialysis for now Chest pain. recent cardiac intervention. on heparin drip Anemia. Hb is below goal. ESTUARDO with HD will follow Thank you 05/12/18 1610 <Electronically signed by Chey Martinez MD> Date Chey Martinez MD Cosigner Signature (if applicable): Date CC: Ivania Martinez M.D.; Kaitlynn Green MD; Ric Mccrary MD Signed EMERGENCY DEPARTMENT Observed: 05/12/2018 Status: F Source: [place] SUMMARY 3:02 PM [facility] REPOSITORY [facility] Medical Records Department [address] [place] [address] Emergency Department Summary 05/12/18 1454 MR#: [id number] Acct: [id number] Name: KOURTNEY REZA Rep #: [id number] : 1975 42 From: Zach Holt MD PCP: Ric Mccrary MD Status: REG ER - ER Visit Summary Date of Service: 05/12/18 Chief Complaint: Mid sternal sharp chest pain with dyspnea. History of Present Illness: The patient is a 42 F who arrived by squad from dialysis because of sharp midsternal chest discomfort with dyspnea. This is similar to her anginal pain. Over the last several days she had dyspnea exertion and chest discomfort with exertion and alleviated with rest. She had recent cardiac catheterization with angioplasty and stent placement LAD by Dr. Underwood. She has a 50% stenosis of her obtuse marginal. EKG that was transmitted by [facility] is concerning for Wellen syndrome. The EKG is new from prior. Patient has history coronary disease, NY, hypertension, hypercholesterolemia, stage renal disease, respiratory failure, depression. EF has varied between 45 and 55%. She is status post repair of PDA. There is significant hypokinesis involving the inferior posterior basilar and mid ventricular wall. Physical Examination: Vital signs are noted. Blood pressure is 173/90. She is not febrile. Head is atraumatic normocephalic. Pupils are equal round reactive. Extraocular muscles are intact. TMs are pearly white with landmarks noted. Nares patent with no drainage. Posterior pharynx without erythema or exudate. Uvula is midline. There is no dysphonia or dysphasia. Trachea is midline. There is no stridor with auscultation of the neck. Heart is regular without murmur, gallop or rub. Lungs reveal rales at both bases. Abdomen soft nontender. There is stigmata of peripheral arterial disease lower extremity. There is no pitting edema. Neuro exam is nonfocal. Please read written note for complete detail Test Results: EKG performed with discomfort reveals biphasic T waves in V1 and V2 which is a variant of Wellen syndrome. Portable chest x-ray reveals pulmonary congestion/fluid overload. H AND H 9.1 28.6, which is baseline. Emergency Department Course and Treatment: Patient received 4 baby aspirin in route. She received nitroglycerin with improvement of her pain. Case was discussed with Dr. Green who agrees with heparin anticoagulation. He was informed of her EKG changes. Treatment Plan: Admit PCU if stable Disposition: PCU Impression: 1. Acute coronary syndrome, Wellen syndrome 2. Fluid overload secondary to end-stage renal disease 3. Nonspecified anemia 4. History of end-stage renal disease on hemodialysis 5. History of hypertension 6. History hypercholesterolemia This note was generated with [employer] dictation software. It may contain incorrect words, spelling, and punctuation that were not noted in review of the chart prior to signing ED Disposition - Plan for ED Patient: Chief Complaint: Chest Pain Referrals: Ric Mccrary MD [Primary Care Provider] - What to do if you have Problems For any increased pain, shortness of breath, bleeding, nausea or vomiting, chest pain, or any unexpected problems, contact your Primary Care Provider. Call [facility] ([phone]) or report to the closest Emergency Room. Call 911 if necessary. 05/12/18 1502 <Electronically signed by Zach Holt MD> Date Zach Holt MD Cosigner Signature (If Indicated): Date CC: Ric Mccrary MD CBC W/DIFF, AUTOMATED Collected: 05/12/2018 Status: F Source: [place] 2:28 PM [facility] REPOSITORY TYPE CODE TESTS RESULT OUT OF RANGE REFERENCE UNITS LAB L100.1000 4.4-11.0 K/mm3 Low WBC 4.1 LAB L100.1200 4.2-5.4 M/mm3 Low RBC 2.97 LAB L100.1300 12.0-15.0 g/dl Low HGB 9.1 LAB L100.1400 37-47 % Low HCT 28.6 LAB L100.1500 81-99 fL Normal MCV 96.3 LAB L100.1600 27.0-32.0 pg Normal MCH 30.6 LAB L100.1700 32-36 g/gl Low MCHC 31.8 LAB L100.1810 11.6-14.6 % High RDW CV 16.2 LAB L100.1820 35.1-43.9 fl High RDW SD 57.1 LAB L100.1900 150-450 K/mm3 Low PLT 95 LAB L100.2000 6.2-12.0 fl Normal MPV 8.1 LAB L100.2100 47-70 % High NEUT% 72.2 LAB L100.2200 19-41 % Low LY% 16.4 LAB L100.2300 0-10 % Normal MONO% 6.8 LAB L100.2400 0-5 % Normal EO% 4.4 LAB L100.2500 0-1 % Normal BASO% 0.0 LAB L100.2550 0.0-0.9 % Normal IM GRAN % 0.200 Result Comment: IG% - Immature Granulocytes (promyelocytes, myelocytes and metamyelocytes) > 1% indicates that a LEFT SHIFT is Present. LAB L100.2620 2.0-7.7 X10 3/uL Normal Absolute Neut 3.0 LAB L100.2720 0.83-4.51 X10 3/ul Low Absolute Lymph 0.67 Performed By: #### L100.0100 #### [facility] [address] [place], [address] BASIC METABOLIC Collected: 05/12/2018 Status: F Source: [place] PROFILE (BMP) 2:28 PM [facility] REPOSITORY TYPE CODE TESTS RESULT OUT OF RANGE REFERENCE UNITS LAB L501.0100 74-106 mg/dL High GLU 248 Result Comment: Glucose result greater than or equal to 200 mg/dL suggests DIABETES MELLITUS per A.D.A. criteria. Please note revised GLUCOSE reference range effective 2017. LAB L501.1000 7-18 mg/dL High BUN 32 LAB L501.1100 0.55-1.02 mg/dL High CREAT,SERUM 4.96 Result Comment: The validity of the calculated GFR AND GFRAA in patients over 70 years has not been determined. Clinical correlation is essential. LAB L501.1110 >60 mL/min Low EST GFR 10 Result Comment: Non- GFR Calc LAB L501.1115 >60 mL/min Low EST GFR - AA 12 Result Comment: GFR Calc LAB L501.1255 ml/min Normal Estimated CRCL 13.55 LAB L501.1300 10-20 RATIO Low BUN/CRE 6.5 LAB L501.2200 8.5-10 mg/dL Low .1 CA 7.4 LAB L501.5300 136-14 mmol/L Normal 5 NA 137 LAB L501.5600 3.5-5. mmol/L Normal 1 K 3.7 LAB L501.5900 98-107 mmol/L Normal CL 98 LAB L501.6100 21.0-3 mmol/L Normal 2.0 CO2 32.0 LAB L501.6200 5-15 Normal GAP 7 Performed By: #### L500.2500, L501.4010 #### [facility] [address] [place], [address] TROPONIN-I Collected: 05/12/2018 Status: F Source: [place] 2:28 PM [facility] REPOSITORY TYPE CODE TESTS RESULT OUT OF RANGE REFERENCE UNITS LAB L501.4010 <0.045 ng/mL Normal 0.023 TROPONIN-I Result Comment: TROPONIN-I EXPECTED VALUES <0.045 Negative 0.045 - 0.590 Consistent with Cardiac Damage > OR = 0.600 Critical Value Not every elevated troponin is indicative of NY. These values should be used with clinical judgement in examining the patient's clinical picture for diagnosis. To establish a diagnosis of NY versus myocardial injury, there must be a demonstrated rise and/or fall in the troponin values, in addition to ischemic symptoms, EKG changes, new regional wall motion abnormality, and/or angiographical evidence. PLEASE NOTE: REFERENCE RANGES EDITED 17 Performed By: #### L500.2500, L501.4010 #### [facility] [address] [place], [address] PROTHROMBIN TIME W/INR Collected: 05/12/2018 Status: F Source: [place] 2:28 PM [facility] REPOSITORY TYPE CODE TESTS RESULT OUT OF RANGE REFERENCE UNITS LAB L300.4150 11.7-14.9 SECONDS Normal PROTIME 14.2 LAB L300.4200 Normal INR 1.1 Performed By: #### L300.3900, L300.4310 #### [facility] [address] [place], [address] PARTIAL THROMBOPLAST Collected: 05/12/2018 Status: F Source: [place] TIME 2:28 PM [facility] REPOSITORY TYPE CODE TESTS RESULT OUT OF RANGE REFERENCE UNITS LAB L300.4310 24.1-36.2 Seconds Normal PTT 35.6 Performed By: #### L300.3900, L300.4310 #### [facility] [address] [place], [address] CHEST 1 VIEW Observed: 05/12/2018 Status: F Source: [place] (PORTABLE) 2:25 PM [facility] REPOSITORY [facility] Imaging Services [address] [place] [address] Chest 1 View (Portable) MR#: [id number] Acct: [id number] Name: KOURTNEY REZA Van Rep #: [id number] : 1975 F 42 From: Quincy Pulido DO PCP: Ric Mccrary MD Status: REG ER Study: Chest 1 View (Portable) Date of Exam: 05/12/18 Exam# [id number] Ordering Dr: Zach Holt MD STUDY: X-RAY CHEST REASON FOR EXAM: Female, 42 years old. Left-sided chest pain TECHNIQUE: Single AP portable view of the chest. # of Images: 1 COMPARISON: March 25, 2018 FINDINGS: The lungs are clear and expanded. There is no demonstrated pleural abnormality. There is mild cardiac enlargement. Normal mediastinum and latrell. Normal visualized pulmonary arteries. Normal visualized aortic arch and descending thoracic aorta. Normal visualized thoracic spine. Normal visualized ribs, clavicles, and shoulders. There is no demonstrated abnormality of the visualized soft tissue structures of the upper abdomen. RAD/Chest 1 View (Portable) IMPRESSION: No acute findings Electronically Signed: Quincy Pulido DO at 14:58 EDT Tel , Service support , CC: Zach Holt MD; Ric Mccrary MD Tester Operator Helper: Signed EMERGENCY DEPARTMENT Observed: 05/03/2018 Status: F Source: [place] SUMMARY 8:38 AM [facility] REPOSITORY [facility] Medical Records Department [address] [place] [address] Emergency Department Summary 05/02/18 1341 MR#: [id number] Acct: [id number] Name: KOURTNEY REZA Rep #: [id number] : 1975 42 From: Wm Matos DO PCP: Ric Mccrary MD Status: DEP ER - ER Visit Summary Date of Service: 05/02/18 Chief Complaint: Vomiting History of Present Illness: The patient is a 42 F who states that she has been unable to keep anything down for 1 week and this includes medications food and all water. She had dialysis yesterday. She states that she stopped taking her on some 3 days ago because she was not eating. She also stopped her aspirin her blood pressure medications but not her Plavix as she is been able to keep that down. Multiple medical problems including diabetes hypertension recent coronary artery stent placement in February and end-stage renal disease. No fevers. No diarrhea. Normal output in the colostomy she has had no relief with her Phenergan. Physical Examination: Afebrile vital signs are stable Gen: Well-nourished well-developed Head: Normocephalic atraumatic Eyes: Perrl EOMI ENT: TMs clear no rhinorrhea moist mucous membranes Neck: Supple no lymphadenopathy no JVD nontender CVS: Regular rate rhythm no murmurs normal S1-S2 Respiratory: No distress clear to auscultation bilaterally chest nontender Abdomen: Soft nontender nondistended normal bowel sounds no masses colostomy bag present, pink Back: Nontender Extremity: Nontender no edema Skin: Normal color no rash Neuro: alert orientated 3 CN II-XII intact normal strength sensation reflexes gait cerebellar Psych: Normal affect normal mood Test Results: Sick labs were essentially negative except for creatinine 6.28 glucose 129 BUN of 51 hemoglobin of 10. Ketones are negative. CT abdomen pelvis not demonstrate any obstruction. Emergency Department Course and Treatment: Patient received IV fluids Phenergan Bentyl and Tylenol. No vomiting. She will be discharged home prescription for Zofran. Impression: 1. Nausea vomiting This note was generated with [employer] dictation software. It may contain incorrect words, spelling, and punctuation that were not noted in review of the chart prior to signing ED Disposition - Plan for ED Patient: Disposition: Home or Assisted Living Chief Complaint: Nausea/Vomiting/Diarrhea Instructions: ED Nausea Vomiting Prescriptions: Ondansetron [Zofran Odt] 4 mg PO Q6H PRN PRN #10 tab PRN Reason: Nausea Referrals: Ric Mccrary MD [Primary Care Provider] - 3-5 Days What to do if you have Problems For any increased pain, shortness of breath, bleeding, nausea or vomiting, chest pain, or any unexpected problems, contact your Primary Care Provider. Call [facility] ([phone]) or report to the closest Emergency Room. Call 911 if necessary. 05/03/18 0838 <Electronically signed by Wm Matos DO> Date Wm Matos DO Cosigner Signature (If Indicated): Date CC: Ric Mccrary MD ABDOMEN/PELVIS WITHOUT Observed: 05/02/2018 Status: F Source: [place] CONT 11:45 AM [facility] REPOSITORY [facility] Imaging Services [address] [place] [address] Abdomen/Pelvis without Cont MR#: [id number] Acct: [id number] Name: KOURTNEY REZA Rep #: [id number] : 1975 F 42 From: Mica Ying MD PCP: Ric Mccrary MD Status: REG ER Study: Abdomen/Pelvis without Cont Date of Exam: 05/02/18 Exam# [id number] Ordering Dr: Wm Matos DO STUDY: CT ABDOMEN AND PELVIS WITHOUT CONTRAST REASON FOR EXAM: Female, 42 years old. HX COLOSTOMY, DOMINGA,TUBAL LIG RADIATION DOSAGE (If Supplied By Facility): CTDIvol = ( 14.29 ) mGy, DLP = ( 767.55 ) mGycm TECHNIQUE: Transaxial images were obtained from the dome of the diaphragm to the symphysis pubis without oral contrast, and without intravenous contrast. Sagittal and coronal images were reconstructed. Individualized dose optimization techniques were used for this CT. COMPARISON: March 12, 2018 FINDINGS: Interstitial prominence is present at the lung bases which may reflect pulmonary vascular congestion. No pleural effusion. No focal lung infiltrate. Coronary vascular calcifications appear present. Normal liver. Normal gallbladder and extrahepatic biliary system. Normal spleen. Normal pancreas. There is symmetric enlargement of the adrenal glands suggesting adrenal hyperplasia. Additionally there appears a nodule associated with the left adrenal gland measuring approximately 1.76 cm with a Hounsfield unit measurement of -6. This suggests a underlying benign adrenal adenoma. Both kidneys are normal in size position and contour without evidence of obstruction or mass. There do appear heavy renal vascular calcifications and there is mild nonspecific perinephric stranding. Stomach is partially contracted otherwise unremarkable. Normal small intestine. Colostomy is noted midline. More inferior to the colostomy asymmetric to the right at there appears a abdominal wall defect that extends to the right abdominal wall but only fat is seen entering this hernia. There is non-visualization of the appendix. There is diffuse atherosclerotic calcification of the abdominal aorta, without a demonstrated aneurysm. Normal inferior vena cava. Normal retroperitoneum. Normal urinary bladder. No deep pelvic mass. There are diffuse degenerative changes of the visualized lumbar spine. Dextroscoliosis of the lumbar spine is noted. CT/Abdomen/Pelvis without Cont IMPRESSION: No acute intra-abdominal abnormality. Heavy renal vascular calcifications are noted. Interstitial prominence at the lung bases is suggestive of pulmonary vascular congestion. This is new when compared to previous exam. See above. Electronically Signed: Mica Ying MD at 12:35 EDT , Service support , CC: Wm Matos DO; Ric Mccrary MD Tester Operator Helper: Signed CBC W/DIFF, AUTOMATED Collected: 05/02/2018 Status: F Source: [place] 10:25 AM [facility] REPOSITORY TYPE CODE TESTS RESULT OUT OF RANGE REFERENCE UNITS LAB L100.1000 4.4-11.0 K/mm3 Normal WBC 6.3 LAB L100.1200 4.2-5.4 M/mm3 Low RBC 3.20 LAB L100.1300 12.0-15.0 g/dl Low HGB 10.1 LAB L100.1400 37-47 % Low HCT 31.7 LAB L100.1500 81-99 fL High MCV 99.1 LAB L100.1600 27.0-32.0 pg Normal MCH 31.6 LAB L100.1700 32-36 g/gl Low MCHC 31.9 LAB L100.1810 11.6-14.6 % High RDW CV 15.8 LAB L100.1820 35.1-43.9 fl High RDW SD 54.3 LAB L100.1900 150-450 K/mm3 Normal PLT 180 LAB L100.2000 6.2-12.0 fl Normal MPV 8.5 LAB L100.2100 47-70 % High NEUT% 74.5 LAB L100.2200 19-41 % Low LY% 14.0 LAB L100.2300 0-10 % Normal MONO% 3.9 LAB L100.2400 0-5 % High EO% 6.8 LAB L100.2500 0-1 % Normal BASO% 0.3 LAB L100.2550 0.0-0.9 % Normal IM GRAN % 0.500 Result Comment: IG% - Immature Granulocytes (promyelocytes, myelocytes and metamyelocytes) > 1% indicates that a LEFT SHIFT is Present. LAB L100.2620 2.0-7.7 X10 3/uL Normal Absolute Neut 4.7 LAB L100.2720 0.83-4.51 X10 3/ul Normal Absolute Lymph 0.89 Performed By: #### L100.0100 #### [facility] [address] [place], [place], [address] ACETONE SERUM Collected: 05/02/2018 Status: F Source: [place] 10:25 AM [facility] REPOSITORY TYPE CODE TESTS RESULT OUT OF RANGE REFERENCE UNITS LAB L501.6900 NEG Normal ACETONE SERUM NEGATIVE Performed By: #### L501.6900 #### [facility] [address] [facility] [place], [place], [address] COMPREHENSIVE METABOLIC Collected: 05/02/2018 Status: F Source: [facility] 10:25 AM [facility] REPOSITORY TYPE CODE TESTS RESULT OUT OF RANGE REFERENCE UNITS LAB L501.0100 74-106 mg/dL High GLU 129 Result Comment: Fasting Glucose result greater than or equal to 126 mg/dL suggests DIABETES MELLITUS per A.D.A. criteria. Please note revised GLUCOSE reference range effective 2017. LAB L501.1000 7-18 mg/dL High BUN 51 LAB L501.1100 0.55-1.02 mg/dL High CREAT,SERUM 6.28 Result Comment: The validity of the calculated GFR AND GFRAA in patients over 70 years has not been determined. Clinical correlation is essential. LAB L501.1110 >60 mL/min Low EST GFR 8 Result Comment: Non- GFR Calc LAB L501.1115 >60 mL/min Low EST GFR - AA 9 Result Comment: GFR Calc LAB L501.1255 ml/min Normal Estimated CRCL 10.70 LAB L501.1300 10-20 RATIO Low BUN/CRE 8.1 LAB L501.1500 6.4-8. g/dL Normal 2 T PROT 7.5 LAB L501.1800 3.2-5. g/dL Low 0 ALB 3.0 LAB L501.1950 2.2-4. g/dL High 2 GLOB 4.5 LAB L501.2000 0.9-2. RATIO Low 4 A/G 0.7 LAB L501.2200 8.5-10 mg/dL Normal .1 CA 9.3 LAB L501.4100 15-37 U/L Normal AST 21 LAB L501.4305 45-117 U/L Normal ALK P 100 LAB L501.4405 13-56 U/L Normal ALT 40 LAB L501.4600 0.20-1 mg/dL Normal .00 T BILI 0.40 LAB L501.5300 136-14 mmol/L Normal 5 NA 140 LAB L501.5600 3.5-5. mmol/L Normal 1 K 4.9 LAB L501.5900 98-107 mmol/L Normal CL 104 LAB L501.6100 21.0-3 mmol/L Normal 2.0 CO2 27.0 LAB L501.6200 5-15 Normal GAP 9 Performed By: #### L500.4050, L501.2450 #### [facility] [address] [place], [address] LIPASE Collected: 05/02/2018 Status: F Source: [place] 10:25 AM [facility] REPOSITORY TYPE CODE TESTS RESULT OUT OF RANGE REFERENCE UNITS LAB L501.2450 73-393 U/L Normal LIPASE 160 Performed By: #### L500.4050, L501.2450 #### [facility] [address] [place], [address] 12 LEAD ELECTROCARDIOGRAM Observed: 04/20/2018 Status: F Source: [place] 2:33 PM [facility] REPOSITORY [facility] Cardiovascular Services [address] [place] [address] 12 Lead EKG 04/17/18 0347 MR#: [id number] Acct: [id number] Name: KOURTNEY REZA Rep #: [id number] : 1975 42 From: Kaitlynn Green MD Attending Dr: Anthony Hill MD Status: DIS IN Ordering Dr: Kaitlynn Castillo MD Date: 04/17/18 Location: [facility] Sex: F C Admitted: 04/17/18 Test Reason : ADM EKG Blood Pressure : / mmHG Vent. Rate : 077 BPM Atrial Rate : 077 BPM P-R Int : 144 ms QRS Dur : 094 ms QT Int : 426 ms P-R-T Axes : 050 061 136 degrees QTc Int : 482 ms Normal sinus rhythm Nonspecific T wave abnormality Prolonged QT Abnormal ECG When compared with ECG of 17-MAR-2018 14:40, T wave inversion no longer evident in Inferior leads Confirmed by PETER BEASLEY, KAITLYNN ([id number]), web editor SHANIA SOLITARIO ([id number]) on 04/20/2018 2:33:20 PM Referred By: MARY Confirmed By:KAITLYNN GREEN MD 04/20/18 1433 Date Kaitlynn Green MD CC: Anthony Hill MD; Kaitlynn Castillo MD; Ric Mccrary MD Signed DISCHARGE SUMMARY Observed: 04/18/2018 Status: F Source: [place] 8:03 AM [facility] Medical Records Department [address] [place] [address] Discharge Summary 04/17/18 1755 MR#: [id number] Acct: [id number] Name: KOURTNEY REZA Rep #: [id number] : 1975 42 From: Gael GEORGE PCP: Ric Mccrary MD Status: DIS IN Y Location: [place] [id number] <Gael Vega - Last Filed: 04/17/18 17:55> Discharge Date and Diagnosis Date of Admission: 04/17/18 Date of Discharge: 04/17/18 - Primary Discharge Diagnosis chest pain - musculoskeletal ESRD CAD prior stents DMt1 HLD HTN Obesity Gastroparesis Anx/Dep Decubitus ulcer - Secondary Discharge Diagnosis Chronic Problems (Last Updated 02/27/18 @ 10:29 by Pricila Olson) Stented coronary artery (Chronic 02/26/18) FFR of LAD 0.82; VIKY of mid LAD with 2.5 X 24 mm Promus Synergy, OM <50% stenosis per Dr. 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 Normal, adequate, dobutamine echocardiogram. Negative for ischemia by EKG and echocardiographic criteria. Hypertensive blood pressure response to dobutamine. Patient arrived with 3 out of 10 chest pain, and increased to 7 out of 10 chest pain with infusion. No associated wall motion abnormalities at peak infusion. Patient did have baseline inferior basal hypokinesis as previously noted on echocardiogram. Decreased sensitivity due to poor echo windows requiring Definity agent. Rare PVCs noted. Final LVEF of 45 percent. No complications. Consults: Juan - Nephro Operations: None Procedures: Stress test Summary of Care Provided: Physical exam on day of discharge: General: Resting comfortably NAD Psych: A/Ox3 normal affect HEENT: PEARRLA AT NC Neck: Supple NT CV: RRR no m/t/r/g/h Resp: CTA Abd: [id number] Soft NT no guarding or rigidity, obese Ext: DP2+= no edema Skin: W/D normal turgor Lymph/Heme: No active bleeding or adenopathy Neuro: CN2-12 intact Hospital course: The patient is a 42 year old F with past medical history of CAD with prior stents, patient of Dr. Underwood, end-stage renal disease patient of Dr. Martinez, type 1 diabetes, hyperlipidemia, hypertension who presented to the emergency room with chief complaint of chest pain when she laid down to go to bed the night prior to presentation. She came to the emergency room at [facility] and had a negative EKG and troponin. Her pain resolved with nitroglycerin. She was transferred to [facility] for cardiac monitoring and further chest pain workup. She was maintained on telemetry with no issues. Troponin was cycled and remained negative. She underwent a stress echocardiogram which was negative for ischemia, EF of 45%. She underwent dialysis per . She had no further chest pain after transfer to this hospital. It was felt that her chest pain was likely musculoskeletal and she was discharged home in stable condition. I did discuss with her that her blood pressure is running somewhat elevated and will need to be monitored and that she should address this with her PCP, hot die picker, and hobbies and crafts sales representative at follow-up. I advised her to follow-up with her hobbies and crafts sales representative in 2 weeks, with her hot die picker as directed, with her PCP, and with Dr. caryn elliott who she is seeing at the wound care center as an outpatient for a chronic decubitus ulcer. This patient was seen by Gael Vega PA-C under the supervision of Doctor Hill. [] Discharge Diet: Renal Diet Discharge Activity: Return to Normal Activity Home Medications: Medications to take at Discharge Aspirin [Aspirin, Baby] 81 mg PO DAILY@0800 01/26/16 Calcium Acetate [Phoslo Gel Cap] 1,334 mg PO TIDCM 01/26/16 Ergocalciferol [Vitamin D] 50,000 unit PO FR 01/26/16 Insulin Aspart [Novolog Flexpen] 10 units SC TIDCM 01/26/16 Insulin Glargine,Hum.rec.anlog [Lantus] 4 unit SQ QHS 01/09/17 proMETHazine tablet [Phenergan tablet] 25 mg PO Q6H PRN PRN #10 tab 03/06/17 Lisinopril 40 mg PO DAILY 03/29/17 Sodium Bicarbonate 650 mg PO 4X/DAY 03/29/17 Fluoxetine HCl 40 mg PO DAILY 09/02/17 ALPRAZolam [Xanax] 0.5 mg PO TUTHSA 11/21/17 Omeprazole Magnesium [Prilosec Otc] 20 mg PO DAILY 02/08/18 Clopidogrel Bisulfate [Plavix] 75 mg PO DAILY #90 tab 02/27/18 Isosorbide Mononitrate [Isosorbide Mononitrate ER] 60 mg PO DAILY 02/28/18 Ondansetron [Zofran Odt] 4 mg PO Q8H PRN PRN #10 tab 03/12/18 carvedilol 25 mg tablet 25 mg PO BID 03/14/18 Atorvastatin Calcium 20 mg PO QHS 03/17/18 Pantoprazole Sodium [Protonix] 20 mg PO DAILY 03/17/18 Ondansetron [Zofran Odt] 4 mg PO Q8H PRN PRN #10 tab 04/08/18 Primary Care Physician: Ric Mccrary MD [Primary Care Provider] - Please follow up with your Primary Care Physician in: 1-2 weeks Please Follow Up With: Chey Martinez MD When: Resume usual dialysis Please Follow Up With: Wm Underwood MD When: 2 weeks Please Follow Up With: Kayode Munroe MD - ' When: As directed Disposition: Home Minutes spent on discharge:: 35 Patient Condition:: Stable Medical Necessity - Tobacco Use Smoking Status: Current every day smoker Meaningful Use Info Meaningful Use Diagnoses (Choose all that apply): None applicable <Anthony Hill - Last Filed: 04/18/18 08:03> Discharge Date and Diagnosis - Secondary Discharge Diagnosis Chronic Problems (Last Updated 02/27/18 @ 10:29 by Pricila Olson) Stented coronary artery (Chronic 02/26/18) FFR of LAD 0.82; VIKY of mid LAD with 2.5 X 24 mm Promus Synergy, OM <50% stenosis per Dr. 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) S/P PTCA/VIKY to mid LAD in February 2018 OM #1 noted to be 50%; ESRD (end stage renal disease) on dialysis (Chronic) Decubitus ulcer, stage III (Chronic) Anemia, chronic disease (Chronic) Pilonidal cyst with abscess (Chronic) GABRIEL (obstructive sleep apnea) (Chronic) Depression (Chronic) Anxiety (Chronic) HTN (hypertension) (Chronic) Diabetes mellitus type 1 (Chronic) Hyperlipidemia (Chronic) Obesity (BMI 30.0-34.9) (Chronic) Gastroparesis (Chronic) Hospital Course and Treatment Summary of Care Provided: Patient is a 42-year-old lady with significant comorbidities including end-stage renal disease on hemodialysis who presented with chest pain. Placed on a monitored bed did rule out [place] with serial cardiac enzymes. Patient subsequently underwent a stress echo which was negative for stress-induced ischemia. Patient has been seen and examined. Her initial assessment including history and physical for diagnostic workup and management orders reviewed. Discharged home following her negative stress test Code Visit OBSV E AND M: 13790 Observ/hosp same date L3 04/17/18 1802 <Electronically signed by Gael GEORGE> Date Gael GEORGE 04/18/18 0803<Electronically signed by Anthony Hill MD> Cosigner Signature (if applicable): Date Anthony Hill MD CC: ARIEL Vega; Anthony Hill MD; Ric Mccrary MD Signed DISCHARGE INSTRUCTION Observed: 04/17/2018 Status: F Source: [place] 5:22 PM [facility] REPOSITORY [facility] Medical Records Department [address] [place] [address] Instructions for Home/Discharge Instructions 04/17/18 1719 MR#: [id number] Acct: [id number] Name: KOURTNEY REZA Rep #: [id number] : 1975 42 From: Gael GEORGE PCP: Ric Mccrary MD Status: ADM IN You will use the following diet at home:: Cardiac, Renal (restricted protein/sodium) Your food should be the consistency of: Regular Your liquids should be the consistency of: Regular/Thin Discharge Activity: Return to Normal Activity Allergies/Adverse Reactions: Allergies latex Allergy (Verified 04/08/18 11:11) Rash levofloxacin [From Levaquin] Adverse Reaction (Verified 04/08/18 11:11) PT CAN'T REMEMBER PT CAN'T REMEMBER metoclopramide HCl [From Reglan] Adverse Reaction (Verified 04/08/18 11:11) Nausea NSAIDS (Non-Steroidal Anti-Inflamma Adverse Reaction (Verified 04/08/18 11:11) kidney function oxycodone HCl [From Percocet] Adverse Reaction (Verified 04/08/18 11:11) HALLUCINATIONS Medications to take at Discharge Aspirin [Aspirin, Baby] 81 mg PO DAILY@0800 01/26/16 Calcium Acetate [Phoslo Gel Cap] 1,334 mg PO TIDCM 01/26/16 Ergocalciferol [Vitamin D] 50,000 unit PO FR 01/26/16 Insulin Aspart [Novolog Flexpen] 10 units SC TIDCM 01/26/16 Insulin Glargine,Hum.rec.anlog [Lantus] 4 unit SQ QHS 01/09/17 proMETHazine tablet [Phenergan tablet] 25 mg PO Q6H PRN PRN #10 tab 03/06/17 Lisinopril 40 mg PO DAILY 03/29/17 Sodium Bicarbonate 650 mg PO 4X/DAY 03/29/17 Fluoxetine HCl 40 mg PO DAILY 09/02/17 ALPRAZolam [Xanax] 0.5 mg PO TUTHSA 11/21/17 Omeprazole Magnesium [Prilosec Otc] 20 mg PO DAILY 02/08/18 Clopidogrel Bisulfate [Plavix] 75 mg PO DAILY #90 tab 02/27/18 Isosorbide Mononitrate [Isosorbide Mononitrate ER] 60 mg PO DAILY 02/28/18 Ondansetron [Zofran Odt] 4 mg PO Q8H PRN PRN #10 tab 03/12/18 carvedilol 25 mg tablet 25 mg PO BID 03/14/18 Atorvastatin Calcium 20 mg PO QHS 03/17/18 Pantoprazole Sodium [Protonix] 20 mg PO DAILY 03/17/18 Ondansetron [Zofran Odt] 4 mg PO Q8H PRN PRN #10 tab 04/08/18 Primary Care Physician: Ric Mccrary MD [Primary Care Provider] - Please follow up with your Primary Care Physician in: 1-2 weeks Test Results: Test results from this visit will be discussed in further detail at your follow-up appointment, if applicable. Please Follow Up With: Chey Martinez MD When: Resume usual dialysis Please Follow Up With: Wm Underwood MD When: 2 weeks Please Follow Up With: Kayode Munroe MD - ' When: As directed 04/17/18 1722 <Electronically signed by Gael GEORGE> Date Gael GEORGE CC: Mirza Molina MD; Ric Mccrary MD BEDSIDE GLUCOSE Collected: 04/17/2018 Status: F Source: [place] 4:01 PM [facility] REPOSITORY TYPE CODE TESTS RESULT OUT OF RANGE REFERENCE UNITS LAB L501.080 70-110 mg/dL Normal BEDSIDE GLU 105 Result Comment: MANAGEMENT OF PATIENT CARE PER NURSING PROTOCOL Performed By: #### L501.080 #### [facility] Point of Care [address] [place] [address] STRESS TEST ECHO W/ Observed: 04/17/2018 Status: F Source: [place] CONTRAST 1:02 PM [facility] REPOSITORY [facility] Cardiovascular Services [address] [place] [address] Stress Test Echo W/Contrast MR#: [id number] Acct: [id number] Name: KOURTNEY REZA Rep #: [id number] : 1975 42 From: Wm Underwood MD Primary Care: Ric Mccrary MD Status: ADM IN Ordering Dr: Kaitlynn Castillo MD Sex: F C Reason For Study: Chest Pain Stress Results Protocol: Dobutamine Stress Echo Maximum Predicted HR: 176 bpm Target HR: 150 bpm% Maximum Pre dicted HR: 78 % DurationHeart Rate Stage (mm:ss) (bpm) BPComm ent Baseline 78 147/82 No Chest Pain; Diluted Definity 3 ML Given DSE 10 MCG 3:00 80 135/75 No Chest Pain DSE 20 MCG 3:00 94 185/81 No Chest Pain DSE 30 MCG 3:00 10 5 194/90 5/10 Chest Pain; Atropine 0.5 MG IVP DSE 40 MCG 3:20 13 7 206/1117/10 Chest and Throat Pain; Atropine 0.5 MG IVP Recovery 94 154/73 No Chest Pain Stress Duration: 12:20 mm:ss Maximum Stress HR: 137 bpmME TS: 1 Baseline Echocardiogram Findings The estimated ejection fraction is 45 %. Stress Echo Wall motion Data Resting WMIntermediate WMStress WM Resting Wall Motion Wall Motion Stress Infero-Basal: Mildly hypokinetic. Infero-Basal: Mildly hypokinetic. EKG Data Normal intervals are noted. The patient was titrated from 10 mcg to a maximum of 40 mcg of dobutamine during the stress. The maximum heart rate attained was 141 beats per minute. This was 80% of maximum predicted heart rate. At peak infusion, upsloping ST changes only were noted, which did not meet the criteria for ischemia. Interpretation Summary The estimated ejection fraction is 45 %. Normal, adequate, dobutamine echocardiogram. Negative for ischemia by EKG and echocardiographic criteria. Hypertensive blood pressure response to dobutamine. Patient arrived with 3 out of 10 chest pain, and increased to 7 out of 10 chest pain with infusion. No associated wall motion abnormalities at peak infusion. Patient did have baseline inferior basal hypokinesis as previously noted on echocardiogram. Decreased sensitivity due to poor echo windows requiring Definity agent. Rare PVCs noted. Final LVEF of 45 percent. No complications. Ordering Physician: Kaitlynn Castillo Referring Physician: Wm Underwood Performed By: Polly Vasquez, TEO, RVT 04/17/18 1301 Date Wm Underwood MD CC: Anthony Hill MD; Kaitlynn Castillo MD; Ric Mccrary MD Date Dictated: 04/17/18 0831 Date Transcribed: 04/17/18 1301 Tester Operator Helper: Signed CONSULTATION Observed: 04/17/2018 Status: F Source: [place] 12:29 [facility] REPOSITORY [facility] Medical Records Department [address] [place] [address] Consultation 04/17/18 1216 MR#: [id number] Acct: [id number] Name: KOURTNEY REZA Rep #: [id number] : 1975 42 From: Chey Martinez MD PCP: Ric Mccrary MD Status: ADM IN Y Location: [place] [address] Problem List (1) ESRD (end stage renal disease) on dialysis Status: Chronic Consultation - Renal 04/17/18 PCP/ Referring MD: Requesting physician: [] Primary care physician: Ric Mccrary Reason for Consultation:: ESRD - History of Present Illness History of Present Illness: The patient is a 42 year old F well known to us. ESRD secondary to diabetes on HD TTS schedule. Access if AVF. last HD monday. recent history - perianal abscess requiring diverting colostomy. [place] s/p cardiac stenting admitted with chest pain. stress test done this am also complains of N/V/D for last few days. several sick contacts at home. - Allergies Allergies: Allergies latex Allergy (Verified 04/08/18 11:11) Rash levofloxacin [From Levaquin] Adverse Reaction (Verified 04/08/18 11:11) PT CAN'T REMEMBER PT CAN'T REMEMBER metoclopramide HCl [From Reglan] Adverse Reaction (Verified 04/08/18 11:11) Nausea NSAIDS (Non-Steroidal Anti-Inflamma Adverse Reaction (Verified 04/08/18 11:11) kidney function oxycodone HCl [From Percocet] Adverse Reaction (Verified 04/08/18 11:11) HALLUCINATIONS - Current Medications Current Medications: Current Medications Aspirin (Ecotrin) 81 mg PO DAILY@0800 [facility] Last Admin: 04/17/18 05:17 Dose: 81 mg Insulin Human Lispro (Humalog Kwikpen (Bkc)) 0 unit SC Q6 DEBBIE; Protocol Last Admin: 04/17/18 12:12 Dose: Not Given Magnesium Hydroxide (Milk Of Magnesia) 30 ml PO DAILY PRN PRN Reason: Constipation Morphine Sulfate () 2 mg IV Q2H PRN PRN PRN Reason: chest pain Last Admin: 04/17/18 09:54 Dose: 2 mg Nitroglycerin (Nitrostat) 0.4 mg SUBLINGUAL Q5M PRN PRN Reason: CARDIAC/CHEST PAIN Ondansetron HCl (Zofran) 4 mg IV Q8H PRN PRN PRN Reason: NAUSEA Last Admin: 04/17/18 07:39 Dose: 4 mg Sodium Chloride () 5 - 30 ml IV UD PRN PRN Reason: SALINE FLUSH Last Admin: 04/17/18 07:40 Dose: 10 ml - Past Medical History Past Medical History (Chronic Problems): Chronic Problems (Last Updated 02/27/18 @ 10:29 by Pricila Olson) Stented coronary artery (Chronic 02/26/18) FFR of LAD 0.82; VIKY of mid LAD with 2.5 X 24 mm Promus Synergy, OM <50% stenosis per Dr. 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) S/P PTCA/VIKY to mid LAD in February 2018 OM #1 noted to be 50%; ESRD (end stage renal disease) on dialysis (Chronic) Decubitus ulcer, stage III (Chronic) Anemia, chronic disease (Chronic) Pilonidal cyst with abscess (Chronic) GABRIEL (obstructive sleep apnea) (Chronic) Depression (Chronic) Anxiety (Chronic) HTN (hypertension) (Chronic) Diabetes mellitus type 1 (Chronic) Hyperlipidemia (Chronic) Obesity (BMI 30.0-34.9) (Chronic) Gastroparesis (Chronic) - Past Surgical History Surgical History: appendectomy, hysterectomy - and BSO, - - c-sections, L breast I+D for abscess, fistula placement LUE, L ankle surgery, appendectomy, PDA repair. Excision pilonidal cyst ulcer about 4 years ago. Colostomy placed due to rectal abscess/wound, patent ductus repair - Social History Smoking Status: Current every day smoker - Family History Maternal History Items: Cancer, COPD, Diabetes, Hypertension, Renal Disease, Stroke Paternal History Items: Diabetes Sibling History Items: Cancer, Diabetes Review of Systems Constitutional: Denies: Chills, Fever, Weight Change HEENT: Denies: Head Aches, Sinus Congestion, Sinus Drainage Cardiovascular: Denies: Chest Pain, Palpitations Respiratory: Denies: Cough, Shortness of breath at rest, Sputum production Gastrointestinal: Reports: Abdominal Pain, Nausea, Vomiting Genitourinary: Denies: Dysuria Musculoskeletal: Denies: Joint Pain, Joint Tenderness Skin: Denies: Rash, Wounds Neurological: Denies: Numbness, Tingling, Focal weakness Psychiatric: Denies: Anxiety, Depression, Homicidal Ideations, Suicidal Ideations Hematologic/ Lymphatic: Denies: Easy Bruising, Easy Bleeding - Physical Exam General: Alert, Oriented x3, Cooperative HEENT: Atraumatic, PERRLA, EOMI, Normocephalic Neck: Supple, No JVD, Negative Carotid Bruits Lungs: Clear to auscultation, Normal air movement Cardiovascular: Regular rate, No murmurs Abdomen: Bowel Sounds Present, Soft, Non Tender Extremities: No edema, Capillary Refill Less than 3 Seconds Skin: No rashes, No breakdown Musculoskeletal: No Tenderness to Palpation of Joints or Extremities Neurological: Cranial nerves II-XII grossly intact Psych/Mental Status: Normal Affect, Appropriate Vital Signs Temp Pulse Resp BP Pulse Ox 97.6 F L 76 16 158/81 H 99 04/17/18 09:45 04/17/18 11:15 04/17/18 09:45 04/17/18 09:45 04/17/18 09:45 Oxygen Delivery Method Room Air Finger Stick Blood Glucose 118 Intake and Output for Last 24 Hours Intake Total 360 / 360 Balance 360 / 360 Laboratory Tests Past 24 Hrs WBC RBC Hgb Hct MCV MCH MCHC RDW RDW Differential Plt Count MPV Immature Gran % (Auto) Neut % (Auto) POC Glucose POC Glucose 96 Assessment/Plan All Active Problems (Last Updated 02/27/18 @ 10:29 by Pricila Olson) Nausea AND vomiting (Acute) Migraine (Acute) Metabolic encephalopathy (Acute) Abnormal electrocardiogram [ECG] [EKG] (Acute) Chest pain (Acute) Tooth abscess (Resolved) Intractable nausea and vomiting (Resolved) Pneumonia (Resolved) Pulmonary edema (Resolved) Hyperkalemia (Resolved) Atypical chest pain (Resolved) Acute hypoxic respiratory failure (Resolved) Pulmonary edema (Resolved) Clostridium difficile enterocolitis (Resolved) Necrotizing myositis (Resolved) Nonischemic cardiomyopathy (Resolved) S/P repair of PDA (patent ductus arteriosus) (Resolved) Dysmenorrhea (Resolved) Hx of necrotizing fascIItis (Resolved) Iron deficiency anemia due to chronic blood loss (Resolved) Systolic congestive heart failure (Resolved) ESRD. HD today. discussed with staff. see orders/flowsheets CHest pain. Troponins negative. stress test done this am. pending results. recently had cardiac stenting done. hyperkalemia. HD today 04/17/18 1229 <Electronically signed by Chey Martinez MD> Date Chey Martinez MD Cosigner Signature (if applicable): Date CC: Mirza Molina MD; Ric Mccrary MD Signed BEDSIDE GLUCOSE Collected: 04/17/2018 Status: F Source: [place] 11:46 AM [facility] REPOSITORY TYPE CODE TESTS RESULT OUT OF RANGE REFERENCE UNITS LAB L501.080 70-110 mg/dL Normal BEDSIDE GLU 100 Result Comment: MANAGEMENT OF PATIENT CARE PER NURSING PROTOCOL Performed By: #### L501.080 #### [facility] Point of Care [address] [place], [place] [address] TROPONIN-I Collected: 04/17/2018 Status: F Source: [place] 11:12 AM [facility] REPOSITORY Order Comment: 'TROP' Serial specimen #1, #2 or #3: 3 TYPE CODE TESTS RESULT OUT OF RANGE REFERENCE UNITS LAB L501.4010 <0.045 ng/mL Normal 0.033 TROPONIN-I Result Comment: TROPONIN-I EXPECTED VALUES <0.045 Negative 0.045 - 0.590 Consistent with Cardiac Damage > OR = 0.600 Critical Value Not every elevated troponin is indicative of [place]. These values should be used with clinical judgement in examining the patient's clinical picture for diagnosis. To establish a diagnosis of [place] versus myocardial injury, there must be a demonstrated rise and/or fall in the troponin values, in addition to ischemic symptoms, EKG changes, new regional wall motion abnormality, and/or angiographical evidence. PLEASE NOTE: REFERENCE RANGES EDITED 17 Performed By: #### L501.4010 #### [facility] [address] [place], [address] BEDSIDE GLUCOSE Collected: 04/17/2018 Status: F Source: [place] 7:38 AM [facility] REPOSITORY TYPE CODE TESTS RESULT OUT OF RANGE REFERENCE UNITS LAB L501.080 70-110 mg/dL Normal BEDSIDE GLU 96 Result Comment: MANAGEMENT OF PATIENT CARE PER NURSING PROTOCOL Performed By: #### L501.080 #### [facility] Point of Care [address] [place] [address] HISTORY AND PHYSICAL Observed: 04/17/2018 Status: F Source: [place] EXAM 6:31 AM [facility] REPOSITORY [facility] Medical Records Department [address] [place] [address] History and Physical 04/17/18 0610 MR#: [id number] Acct: [id number] Name: KOURTNEY REZA Rep #: [id number] : 1975 42 From: Kaitlynn Castillo MD PCP: Ric Mccrary MD Status: ADM AIDEN Y Location: [place] [address] Problem List (1) Nausea AND vomiting Status: Acute (2) Stented coronary artery Status: Chronic Comment: FFR of LAD 0.82; VIKY of mid LAD with 2.5 X 24 mm Promus Synergy, OM <50% stenosis per Dr. Underwood @ [facility] (3) Atherosclerotic heart disease of ute coronary artery without angina pectoris Status: Chronic Qualifiers: Comment: S/P PTCA/VIKY to mid LAD in February 2018 OM #1 noted to be 50%; (4) Chest pain Status: Acute Qualifiers: Chest pain type: unspecified Qualified Code(s): R07.9 - Chest pain, unspecified (5) ESRD (end stage renal disease) on dialysis Status: Chronic (6) Decubitus ulcer, stage III Status: Chronic (7) Anemia, chronic disease Status: Chronic (8) GABRIEL (obstructive sleep apnea) Status: Chronic (9) Depression Status: Chronic Qualifiers: (10) Anxiety Status: Chronic (11) HTN (hypertension) Status: Chronic Qualifiers: (12) Diabetes mellitus type 1 Status: Chronic Qualifiers: History of Present Illness Date of Admission: 04/17/18 Chief Complaint: chest pain The patient is a 42 year old female patient with a significant past medical history of coronary artery disease, diabetes 1, and ESRD on dialysis present to our hospital by transfer from [facility] for chest pain. She states she went to lay down this evening but she felt a heaviness in her chest that got worse when she went to bed at approximately 11:00pm last evening. Initial EKG and troponin were unremarkable yet her pain resolved with nitroglycerin. She was nauseated and vomited with this pain. She is resting comfortably in no acute distress. Today is her normal day for dialysis which she says was disrupted last time due to her discomfort from a decubitus ulcer which Dr Munroe has been looking after. Past Medical History Past Medical History (Chronic Problems): Chronic Problems (Last Updated 02/27/18 @ 10:29 by Pricila Olson) Stented coronary artery (Chronic 02/26/18) FFR of LAD 0.82; VIKY of mid LAD with 2.5 X 24 mm Promus Synergy, OM <50% stenosis per Dr. 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) S/P PTCA/VIKY to mid LAD in February 2018 OM #1 noted to be 50%; ESRD (end stage renal disease) on dialysis (Chronic) Decubitus ulcer, stage III (Chronic) Anemia, chronic disease (Chronic) Pilonidal cyst with abscess (Chronic) GABRIEL (obstructive sleep apnea) (Chronic) Depression (Chronic) Anxiety (Chronic) HTN (hypertension) (Chronic) Diabetes mellitus type 1 (Chronic) Hyperlipidemia (Chronic) Obesity (BMI 30.0-34.9) (Chronic) Gastroparesis (Chronic) Medical History: Medical History (Last Updated 02/27/18 @ 10:29 by Pricila Olson) 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) I25.10 S/P PTCA/VIKY to mid LAD in February 2018 OM #1 noted to be 50%; ESRD (end stage renal disease) on dialysis (Chronic) N18.6, Z99.2 Decubitus ulcer, stage III (Chronic) L89.93 Anemia, chronic disease (Chronic) D63.8 Pilonidal cyst with abscess (Chronic) L05.01 GABRIEL (obstructive sleep apnea) (Chronic) G47.33 HTN (hypertension) (Chronic) I10 Nonischemic cardiomyopathy (Resolved) I42.8 Diabetes mellitus type 1 (Chronic) Hyperlipidemia (Chronic) E78.5 Obesity (BMI 30.0-34.9) (Chronic) E66.9 Gastroparesis (Chronic) K31.84 Allergies latex Allergy (Verified 04/08/18 11:11) Rash levofloxacin [From Levaquin] Adverse Reaction (Verified 04/08/18 11:11) PT CAN'T REMEMBER PT CAN'T REMEMBER metoclopramide HCl [From Reglan] Adverse Reaction (Verified 04/08/18 11:11) Nausea NSAIDS (Non-Steroidal Anti-Inflamma Adverse Reaction (Verified 04/08/18 11:11) kidney function oxycodone HCl [From Percocet] Adverse Reaction (Verified 04/08/18 11:11) HALLUCINATIONS Home Medications: Ambulatory Orders Medication Instructions Recorded Aspirin [Aspirin, Baby] 81 mg PO DAILY@0800 01/26/16 Surgical History: Surgical History (Last Updated 02/27/18 @ 10:29 by Pricila Olson) Stented coronary artery (Chronic) Onset Date: 02/26/18 Z95.5 FFR of LAD 0.82; VIKY of mid LAD with 2.5 X 24 mm Promus Synergy, OM <50% stenosis per Dr. Underwood @ [facility] S/P repair of PDA (patent ductus arteriosus) (Resolved) Z98.890, Z87.74 At young age Surgical History: appendectomy, hysterectomy - and BSO, - - c-sections, L breast I+D for abscess, fistula placement LUE, L ankle surgery, appendectomy, PDA repair. Excision pilonidal cyst ulcer about 4 years ago. Colostomy placed due to rectal abscess/wound, patent ductus repair Smoking Status: Current every day smoker - *Family History Maternal History Items: Cancer, COPD, Diabetes, Hypertension, Renal Disease, Stroke Paternal History Items: Diabetes Sibling History Items: Cancer, Diabetes Review of Systems Constitutional: Denies: Chills, Fever, Weight Change HEENT: Denies: Head Aches, Sinus Congestion, Sinus Drainage Cardiovascular: Reports: Chest Pain, Heaviness. Denies: Palpitations Respiratory: Denies: Cough, Shortness of breath at rest, Sputum production Gastrointestinal: Reports: Nausea, Vomiting. Denies: Abdominal Pain Genitourinary: Denies: Dysuria Musculoskeletal: Denies: Joint Pain, Joint Tenderness Skin: Denies: Rash, Wounds Neurological: Denies: Numbness, Tingling, Focal weakness Psychiatric: Denies: Anxiety, Depression, Homicidal Ideations, Suicidal Ideations Hematologic/ Lymphatic: Denies: Easy Bruising, Easy Bleeding VTE Information - Inpt Only VTE Present on Admission: No VTE Mechan Device Prophylaxis: SCD's VTE Pharm Prophylaxis ordered?: No Reason prophylaxis not ordered:: Medical Contraindication - Physical Exam General: Alert, Oriented x3, Cooperative HEENT: Atraumatic, Normocephalic Neck: Supple, Negative Carotid Bruits Lungs: Clear to auscultation, Normal air movement Cardiovascular: Regular rate, Regular Rhythm, Normal S1, Normal S2, No murmurs Abdomen: Bowel Sounds Present, Soft, Non Tender Extremities: No edema, Capillary Refill Less than 3 Seconds Skin: No rashes, No breakdown Musculoskeletal: No Tenderness to Palpation of Joints or Extremities Psych/Mental Status: Normal Affect, Appropriate Vital Signs Pulse 74 04/17/18 04:24 Finger Stick Blood Glucose 118 Laboratory Tests Past 24 Hrs WBC Pending RBC Pending Hgb Pending Hct Pending Assessment/Plan All Active Problems (Last Updated 02/27/18 @ 10:29 by Pricila Olson) Nausea AND vomiting (Acute) Migraine (Acute) Metabolic encephalopathy (Acute) Abnormal electrocardiogram [ECG] [EKG] (Acute) Chest pain (Acute) Tooth abscess (Resolved) Intractable nausea and vomiting (Resolved) Pneumonia (Resolved) Pulmonary edema (Resolved) Hyperkalemia (Resolved) Atypical chest pain (Resolved) Acute hypoxic respiratory failure (Resolved) Pulmonary edema (Resolved) Clostridium difficile enterocolitis (Resolved) Necrotizing myositis (Resolved) Nonischemic cardiomyopathy (Resolved) S/P repair of PDA (patent ductus arteriosus) (Resolved) Dysmenorrhea (Resolved) Hx of necrotizing fascIItis (Resolved) Iron deficiency anemia due to chronic blood loss (Resolved) Systolic congestive heart failure (Resolved) Chronic Problems (Last Updated 02/27/18 @ 10:29 by Pricila Olson) Stented coronary artery (Chronic 02/26/18) FFR of LAD 0.82; VIKY of mid LAD with 2.5 X 24 mm Promus Synergy, OM <50% stenosis per Dr. 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) S/P PTCA/VIKY to mid LAD in February 2018 OM #1 noted to be 50%; ESRD (end stage renal disease) on dialysis (Chronic) Decubitus ulcer, stage III (Chronic) Anemia, chronic disease (Chronic) Pilonidal cyst with abscess (Chronic) GABRIEL (obstructive sleep apnea) (Chronic) Depression (Chronic) Anxiety (Chronic) HTN (hypertension) (Chronic) Diabetes mellitus type 1 (Chronic) Hyperlipidemia (Chronic) Obesity (BMI 30.0-34.9) (Chronic) Gastroparesis (Chronic) Plan - admit to progressive care unit - cycle cardiac enzymes, cbc, bmp and coag panel - morphine, oxygen, nitroglycerin and aspirin per routine - plan dobutamine stress echo test in am (per conversation with Dr Underwood) - currently NPO pending stress test, if wnl then normal diet and resume medications for now will have q 6hr blood sugar checks with SSI coverage - SCDs for DVT prophylaxis Code Visit Inpatient E AND M: 33687 Init Hosp L3 04/17/18 0631 <Electronically signed by Kaitlynn Castillo MD> Date Kaitlynn Castillo MD Cosigner Signature: Date (if applicable) CC: Kaitlynn Castillo MD; Ric Mccrary MD Signed PROTHROMBIN TIME W/INR Collected: 04/17/2018 Status: F Source: [place] 5:05 AM [facility] REPOSITORY TYPE CODE TESTS RESULT OUT OF RANGE REFERENCE UNITS LAB L300.4150 11.7-14.9 SECONDS Normal PROTIME 14.7 LAB L300.4200 Normal INR 1.2 Performed By: #### L300.3900, L300.4310 #### [facility] [address] [place], [address] PARTIAL THROMBOPLAST Collected: 04/17/2018 Status: F Source: [place] TIME 5:05 AM [facility] REPOSITORY TYPE CODE TESTS RESULT OUT OF RANGE REFERENCE UNITS LAB L300.4310 24.1-36.2 Seconds Normal PTT 29.6 Performed By: #### L300.3900, L300.4310 #### [facility] [address] [place], [address] BASIC METABOLIC Collected: 04/17/2018 Status: F Source: [place] PROFILE (BMP) 5:05 AM [facility] REPOSITORY Order Comment: 'TROP' Serial specimen #1, #2 or #3: 1 TYPE CODE TESTS RESULT OUT OF RANGE REFERENCE UNITS LAB L501.0100 74-106 mg/dL High GLU 117 Result Comment: Fasting Glucose result from 100 to 125 mg/dL suggests IMPAIRED HOMEOSTASIS per A.D.A. criteria. Please note revised GLUCOSE reference range effective 2017. LAB L501.1000 7-18 mg/dL High BUN 63 LAB L501.1100 0.55-1.02 mg/dL High alert CREAT,SERUM 8.24 Result Comment: Critical Result(s) Called at: 06:26:23 04/17/2018 by: Rachid Joyner to Samuel Washburn RN. (U). The validity of the calculated GFR AND GFRAA in patients over 70 years has not been determined. Clinical correlation is essential. LAB L501.1110 >60 mL/min Low EST GFR 6 Result Comment: Non- GFR Calc LAB L501.1115 >60 mL/min Low EST GFR - AA 7 Result Comment: GFR Calc LAB L501.1300 10-20 RATIO Low BUN/CRE 7.6 LAB L501.2200 8.5-10.1 mg/dL Normal CA 8.5 LAB L501.5300 136-145 mmol/L Normal NA 141 LAB L501.5600 3.5-5.1 mmol/L High K 5.6 LAB L501.5900 98-107 mmol/L High CL 108 LAB L501.6100 21.0-32.0 mmol/L Low CO2 20.0 LAB L501.6200 5-15 Normal GAP 13 Performed By: #### L500.2500, L501.4010 #### [facility] [address] [place], [address] TROPONIN-I Collected: 04/17/2018 Status: F Source: [place] 5:05 AM [facility] REPOSITORY Order Comment: 'TROP' Serial specimen #1, #2 or #3: 1 TYPE CODE TESTS RESULT OUT OF RANGE REFERENCE UNITS LAB L501.4010 <0.045 ng/mL Normal 0.020 TROPONIN-I Result Comment: TROPONIN-I EXPECTED VALUES <0.045 Negative 0.045 - 0.590 Consistent with Cardiac Damage > OR = 0.600 Critical Value Not every elevated troponin is indicative of [place]. These values should be used with clinical judgement in examining the patient's clinical picture for diagnosis. To establish a diagnosis of [place] versus myocardial injury, there must be a demonstrated rise and/or fall in the troponin values, in addition to ischemic symptoms, EKG changes, new regional wall motion abnormality, and/or angiographical evidence. PLEASE NOTE: REFERENCE RANGES EDITED 17 Performed By: #### L500.2500, L501.4010 #### [facility] [place], [address] CBC W/DIFF, AUTOMATED Collected: 04/17/2018 Status: F Source: [place] 5:05 [facility] REPOSITORY TYPE CODE TESTS RESULT OUT OF RANGE REFERENCE UNITS LAB L100.1000 4.4-11.0 K/mm3 Normal WBC 8.3 LAB L100.1200 4.2-5.4 M/mm3 Low RBC 3.16 LAB L100.1300 12.0-15.0 g/dl Low HGB 9.9 LAB L100.1400 37-47 % Low HCT 30.9 LAB L100.1500 81-99 fL Normal MCV 97.8 LAB L100.1600 27.0-32.0 pg Normal MCH 31.3 LAB L100.1700 32-36 g/gl Normal MCHC 32.0 LAB L100.1810 11.6-14.6 % High RDW CV 15.3 LAB L100.1820 35.1-43.9 fl High RDW SD 52.4 LAB L100.1900 150-450 K/mm3 Low PLT 134 LAB L100.2000 6.2-12.0 fl Normal MPV 9.1 LAB L100.2100 47-70 % High NEUT% 74.7 LAB L100.2200 19-41 % Low LY% 16.7 LAB L100.2300 0-10 % Normal MONO% 3.9 LAB L100.2400 0-5 % Normal EO% 3.9 LAB L100.2500 0-1 % Normal BASO% 0.4 LAB L100.2550 0.0-0.9 % Normal IM GRAN % 0.400 Result Comment: IG% - Immature Granulocytes (promyelocytes, myelocytes and metamyelocytes) > 1% indicates that a LEFT SHIFT is Present. LAB L100.2620 2.0-7.7 X10 3/uL Normal Absolute Neut 6.2 LAB L100.2720 0.83-4.51 X10 3/ul Normal Absolute Lymph 1.38 Performed By: #### L100.0100 #### [facility] [address] [place], [address] CBC Collected: 04/17/2018 Status: F Source: [facility] 12:45 AM [facility] REPOSITORY TYPE CODE TESTS RESULT OUT OF REFERENCE UNITS RANGE LAB WBC(LOINC) 4.60-10.80 10 3/mcL WBC 8.10 LAB RBCCT(LOINC 4.20-5.40 10 6/mcL ) Low RBC 3.41 LAB HGB(LOINC) 12.0-16.0 G/dL Low Hgb 10.7 LAB HCT(LOINC) 37.0-47.0 % Low Hct 32.6 LAB MCV(LOINC) 80.0-94.0 fL High MCV 95.6 LAB MCH(LOINC) 27.0-31.2 pg High MCH 31.4 LAB MCHC(LOINC) 33.0-37.0 G/dL Low MCHC 32.8 LAB RDW(LOINC) 11.5-14.5 % High RDW 17.6 LAB PLT(LOINC) 130-400 10 3/mcL Platelet 151 LAB MPV(LOINC) 7.4-10.4 fL Low MPV 7.1 Performed By: #### CBC, ADIFF, ANEU #### [facility] [address] [place], [place] [address] #### TROP, CMP, GFR #### [address] [address] .AUTO DIFF Collected: 04/17/2018 Status: F Source: [facility] 12:45 [facility] REPOSITORY TYPE CODE TESTS RESULT OUT OF REFERENCE UNITS RANGE LAB GALINA(LOINC) 37.0-80.0 % Neutrophil % 75.0 LAB LYM(LOINC) 10.0-50.0 % Lymphocyte % 15.5 LAB MON(LOINC) 1.7-13.0 % Monocyte % 4.2 LAB EO(LOINC) 0.0-7.0 % Eosinophil % 4.9 LAB BAS(LOINC) 0.0-2.5 % Basophil % 0.4 LAB ABLYM(LOIN 0.77-3.85 10 3/mcL C) Lymphocyte, 1.30 Absolute LAB WILLIAM(LOINC 0.15-1.00 10 3/mcL ) Monocyte, 0.30 Absolute LAB AEOS(LOINC 0.00-0.40 10 3/mcL ) Eosinophil, 0.40 Absolute LAB ABAS(LOINC 0.00-0.19 10 3/mcL ) Basophil, 0.00 Absolute Performed By: #### CBC, ADIFF, ANEU #### [place] [address] #### TROP, CMP, GFR #### [place] [address] .NEUABS Collected: 04/17/2018 Status: F Source: [facility] 12:45 [facility] REPOSITORY TYPE CODE TESTS RESULT OUT OF REFERENCE UNITS RANGE LAB ANEU(LOINC) 2.85-6.16 10 3/mcL Neutrophil, 6.00 Absolute Performed By: #### CBC, ADIFF, ANEU #### [address] [address] #### TROP, CMP, GFR #### [place] [address] TROP Collected: 04/17/2018 Status: F Source: [facility] 12:45 [facility] REPOSITORY TYPE CODE TESTS RESULT OUT OF REFERENCE UNITS RANGE LAB TROP(LOINC) 0.000-0.040 ng/mL Troponin <0.020 Result Comment: Troponin I reference range: 0.00-0.040 ng/mL Negative and non-diagnostic. >0.040 ng/mL Consistent with cardiac damage, increased clinical risk and possibility of myocardial infarction. Serial measurements, a rise & fall in test results, clinical history, appropriate symptoms and/or ECG changes may help assess possibility of [place]. *Other non-acute coronary syndrome conditions such as CHF, myocarditis, pulmonary emboli, sepsis and cardiac surgery could result in myocardial damage and increased troponin levels. Performed By: #### CBC, ADIFF, ANEU #### [place] [address] [place], [place] [address] #### TROP, CMP, GFR #### [place] [address] CMP Collected: 04/17/2018 Status: F Source: [facility] 12:45 [facility] REPOSITORY TYPE CODE TESTS RESULT OUT OF REFERENCE UNITS RANGE LAB GLU(LOINC) 70-105 mg/dL Glucose High Level 188 LAB NA(LOINC) 136-145 mmol/L Sodium Level 138 LAB K(LOINC) 3.5-5.1 mmol/L Potassium High Level 5.4 LAB CL(LOINC) 98-107 mmol/L Chloride 102 LAB CO2(LOINC) 22-29 mmol/L CO2 25 LAB EBAL(LOINC mEq/L ) Electrolyte Balance 11.0 LAB BUN(LOINC) 7-18 mg/dL BUN High 63 LAB CRE(LOINC) 0.55-1.02 mg/dL Creatinine High Lvl (s) 8.62 LAB BC(LOINC) 7-27 ratio BUN/Creatinine 7 Ratio LAB CA(LOINC) 8.4-10.2 mg/dL Calcium Lvl 8.6 LAB PROT(LOINC 6.4-8.2 G/dL ) Total Protein 7.2 LAB ALB(LOINC) 3.5-5.0 G/dL Low Albumin Level 3.3 LAB GLB(LOINC) G/dL Globulin 3.9 LAB AG(LOINC) 1.1-2.5 ratio Low A/G Ratio 0.8 LAB BILT(LOINC 0.2-1.0 mg/dL ) Bili Total 0.2 LAB AP(LOINC) 40-135 U/L Alk Phos 103 LAB AST(LOINC) 10-40 U/L AST/SGOT 23 LAB ALT(LOINC) 10-35 U/L ALT/SGPT High 36 Performed By: #### CBC, ADIFF, ANEU #### [place] [address] [place], [place] [address] #### TROP, CMP, GFR #### [place] [id number] [place] [address] .GFR Collected: 04/17/2018 Status: F Source: [facility] 12:45 AM [facility] REPOSITORY TYPE CODE TESTS RESULT OUT OF REFERENCE UNITS RANGE LAB GFRAA(LOINC ml/min/1.73 ) sqm GFR 6 Lao Result Comment: GFR Population mean for , Non- Americans Ages 20-29 = 116 mL/min/1.73 sq.m. Ages 30-39 = 107 mL/min/1.73 sq.m. Ages 40-49 = 99 mL/min/1.73 sq.m. Ages 50-59 = 93 mL/min/1.73 sq.m. Ages 60-69 = 85 mL/min/1.73 sq.m. Ages 70+ = 75 mL/min/1.73 sq.m. Chronic Kidney Disease: Less than 60 mL/min/1.73 square meters End Stage Renal Disease: Less than 15 mL/min/1.73 square meters LAB GFRNO(LOINC) ml/min/1.73sqm GFR Non- 5 Result Comment: GFR Population mean for , Non- Americans Ages 20-29 = 116 mL/min/1.73 sq.m. Ages 30-39 = 107 mL/min/1.73 sq.m. Ages 40-49 = 99 mL/min/1.73 sq.m. Ages 50-59 = 93 mL/min/1.73 sq.m. Ages 60-69 = 85 mL/min/1.73 sq.m. Ages 70+ = 75 mL/min/1.73 sq.m. Chronic Kidney Disease: Less than 60 mL/min/1.73 square meters End Stage Renal Disease: Less than 15 mL/min/1.73 square meters Performed By: #### CBC, ADIFF, ANEU #### [facility] [address] [address] #### TROP, CMP, GFR #### [address] [address] UA Collected: 04/17/2018 Status: F Source: [place] [employer] 12:45 AM [facility] REPOSITORY TYPE CODE TESTS RESULT OUT OF RANGE REFERENCE UNITS LAB SPCUA(GUILLERMINA NC) UA Specimen Type Clean Catch LAB CLRUA(GUILLERMINA NC) UA Color Yellow LAB APPUA(GUI[place] Clear NC) UA Appear Clear LAB SGUA(LOIN C) UA Spec Grav 1.015 LAB GLUA(LOIN Negative mg/dL C) UA Glucose Unknown 500 LAB BILUA(GUILLERMINA Negative NC) UA Bili Negative LAB KETUA(GUILLERMINA Negative mg/dL NC) UA Ketones Negative LAB BLDUA(GUILLERMINA Negative NC) UA Blood Unknown Small LAB PHUA(LOIN C) UA pH 8.0 LAB PROUA(GUILLERMINA Negative mg/dL NC) UA Protein Unknown 300 LAB UROUA(GUILLERMINA E.U./dL NC) UA Urobilinogen 0.2 LAB NITUA(GUILLERMINA Negative NC) UA Nitrite Negative LAB LEUUA(GUILLERMINA Negative NC) UA Leuk Est Negative Performed By: #### UA, UAMICAO #### [address] [address] .URINALYSIS MICROSCOPIC Collected: 04/17/2018 Status: F Source: [place] [facility]) 12:45 AM [facility] REPOSITORY TYPE CODE TESTS RESULT OUT OF RANGE REFERENCE UNITS LAB WBCUA(LOIN None Seen /hpf C) Unknown UA WBC 0-5 LAB RBCUA(LOIN None Seen /hpf C) Unknown UA RBC 0-5 LAB EPIUA(LOIN None Seen /hpf C) Unknown UA Squam Epithelial 0-5 Performed By: #### UA, UAMICAO #### [address] [address] XR CHEST 1 VIEW Observed: 04/17/2018 Status: F Source: [facility] 12:12 AM [facility] REPOSITORY ORIGINAL Clinical history: Chest pain. COMPARISON: Chest x-ray on 07/27/2013. Portable AP radiograph of the chest was obtained at 12:07 AM. The heart size is normal. There is no sign of acute infiltrate or pulmonary edema. No significant pleural fluid or pneumothorax is visible. Skeletal structures show chronic deformity of the LEFT 3rd and 4th ribs. IMPRESSION: No acute chest process. Interpreted By: Eric Lopez MD Preliminary Report By: Eric Lopez MD Electronically Signed By: Eric Lopez MD Dictated Date: 04/17/2018 12:18:10 AM Prelim Date: 04/17/2018 12:18:10 AM Sign Date: 04/17/2018 12:21:09 AM CBC Collected: 04/13/2018 Status: F Source: [facility] 5:15 PM [facility] REPOSITORY TYPE CODE TESTS RESULT OUT OF REFERENCE UNITS RANGE LAB WBC(LOINC) 4.60-10.80 10 3/mcL WBC 8.40 LAB RBCCT(LOINC 4.20-5.40 10 6/mcL ) Low RBC 3.75 LAB HGB(LOINC) 12.0-16.0 G/dL Low Hgb 11.6 LAB HCT(LOINC) 37.0-47.0 % Low Hct 35.5 LAB MCV(LOINC) 80.0-94.0 fL High MCV 94.6 LAB MCH(LOINC) 27.0-31.2 pg MCH 31.0 LAB MCHC(LOINC) 33.0-37.0 G/dL Low MCHC 32.8 LAB RDW(LOINC) 11.5-14.5 % High RDW 17.1 LAB PLT(LOINC) 130-400 10 3/mcL Platelet 177 LAB MPV(LOINC) 7.4-10.4 fL Low MPV 6.8 Performed By: #### CBC, ADIFF, ANEU #### [address] [address] #### BMP, GFR #### [address] [address] .AUTO DIFF Collected: 04/13/2018 Status: F Source: [facility] 5:15 [facility] REPOSITORY TYPE CODE TESTS RESULT OUT OF REFERENCE UNITS RANGE LAB GALINA(LOINC) 37.0-80.0 % Neutrophil % 76.1 LAB LYM(LOINC) 10.0-50.0 % Lymphocyte % 14.7 LAB MON(LOINC) 1.7-13.0 % Monocyte % 4.0 LAB EO(LOINC) 0.0-7.0 % Eosinophil % 4.5 LAB BAS(LOINC) 0.0-2.5 % Basophil % 0.7 LAB ABLYM(LOIN 0.77-3.85 10 3/mcL C) Lymphocyte, 1.20 Absolute LAB WILLIAM(LOINC 0.15-1.00 10 3/mcL ) Monocyte, 0.30 Absolute LAB AEOS(LOINC 0.00-0.40 10 3/mcL ) Eosinophil, 0.40 Absolute LAB ABAS(LOINC 0.00-0.19 10 3/mcL ) Basophil, 0.10 Absolute Performed By: #### CBC, ADIFF, ANEU #### [address] [place], [place] [address] #### BMP, GFR #### [address] [address] .NEUABS Collected: 04/13/2018 Status: F Source: [facility] 5:15 PM [facility] REPOSITORY TYPE CODE TESTS RESULT OUT OF REFERENCE UNITS RANGE LAB ANEU(LOINC) 2.85-6.16 10 3/mcL High Neutrophil, 6.40 Absolute Performed By: #### CBC, ADIFF, ANEU #### [address] [address] #### BMP, GFR #### [address] [address] BMP Collected: 04/13/2018 Status: F Source: [facility] 5:15 PM [facility] REPOSITORY TYPE CODE TESTS RESULT OUT OF REFERENCE UNITS RANGE LAB GLU(LOINC) 70-105 mg/dL Glucose High Level 232 LAB NA(LOINC) 136-145 mmol/L Sodium Level 141 LAB K(LOINC) 3.5-5.1 mmol/L Potassium High Level 5.4 LAB CL(LOINC) 98-107 mmol/L Chloride 103 LAB CO2(LOINC) 22-29 mmol/L CO2 24 LAB EBAL(LOINC mEq/L ) Electrolyte Balance 14.0 LAB BUN(LOINC) 7-18 mg/dL BUN High 53 LAB CRE(LOINC) 0.55-1.02 mg/dL Creatinine High Lvl (s) 8.48 LAB BC(LOINC) 7-27 ratio Low BUN/Creatinine 6 Ratio LAB CA(LOINC) 8.4-10.2 mg/dL Calcium Lvl 8.6 Performed By: #### CBC, ADIFF, ANEU #### [address] [place], [place] [address] #### BMP, GFR #### [address] [address] .GFR Collected: 04/13/2018 Status: F Source: [facility] 5:15 PM [facility] REPOSITORY TYPE CODE TESTS RESULT OUT OF REFERENCE UNITS RANGE LAB GFRAA(LOINC ml/min/1.73 ) sqm GFR 6 Lao Result Comment: GFR Population mean for , Non- Americans Ages 20-29 = 116 mL/min/1.73 sq.m. Ages 30-39 = 107 mL/min/1.73 sq.m. Ages 40-49 = 99 mL/min/1.73 sq.m. Ages 50-59 = 93 mL/min/1.73 sq.m. Ages 60-69 = 85 mL/min/1.73 sq.m. Ages 70+ = 75 mL/min/1.73 sq.m. Chronic Kidney Disease: Less than 60 mL/min/1.73 square meters End Stage Renal Disease: Less than 15 mL/min/1.73 square meters LAB GFRNO(LOINC) ml/min/1.73sqm GFR Non- 5 Result Comment: GFR Population mean for , Non- Americans Ages 20-29 = 116 mL/min/1.73 sq.m. Ages 30-39 = 107 mL/min/1.73 sq.m. Ages 40-49 = 99 mL/min/1.73 sq.m. Ages 50-59 = 93 mL/min/1.73 sq.m. Ages 60-69 = 85 mL/min/1.73 sq.m. Ages 70+ = 75 mL/min/1.73 sq.m. Chronic Kidney Disease: Less than 60 mL/min/1.73 square meters End Stage Renal Disease: Less than 15 mL/min/1.73 square meters Performed By: #### CBC, ADIFF, ANEU #### [facility] [address] [place], [place] [address] #### BMP, GFR #### [facility] [address] [place] [address] EMERGENCY DEPARTMENT Observed: 04/08/2018 Status: F Source: [facility] [facility] 1:40 PM [facility] REPOSITORY [facility] Medical Records Department [address] [place] [address] Emergency Department Summary 04/08/18 1333 MR#: [id number] Acct: [id number] Name: KOURTNEY REZA Rep #: [id number] : 1975 42 From: Zach Holt MD PCP: Ric Mccrary MD Status: REG ER - ER Visit Summary Date of Service: 04/08/18 Chief Complaint: Abdominal pain with nausea, vomiting diarrhea History of Present Illness: The patient is a 42 F who has multiple medical problems presents with abdominal pain with nausea, vomiting diarrhea. She states she intermittently has blood in her colostomy bag. She is undergone workup with no determine etiology. She does not report diarrhea recently. She has soft to mushy stool that is green in color. She does report chills but denies fever. She denies weight loss or night sweats. She denies ocular, visual auditory symptoms. She denies rhinorrhea, congestion or sore throat. She denies chest pain, palpitations, orthopnea or PND. She denies dyspnea, cough or dyspnea on exertion. She denies myalgias arthralgias. She does report chronic midline low back pain. She denies bowel or bladder dysfunction. She denies radicular pain. She denies foot drop. Physical Examination: Patient appears uncomfortable. HEENT exam is remarkable dry mucosa. Heart is regular without murmur, gallop or rub. S1 and S2 are normal. Lungs are clear to auscultation with good movement of air bilaterally. Abdomen is soft with tenderness more so the right side and right upper quadrant. Negative clinical Escalante sign. There appears to be blood in the colostomy bag. Stool is semi-formed and green. Patient has multiple bruises. She states she is noted the bruises since she was prescribed Plavix. She was prescribed Plavix 1 month ago for coronary disease necessitating angioplasty and stenting. Test Results: CBC is remarkable for chronic unspecified anemia and thrombocytopenia. Electrolyte panel is remarkable for elevated potassium 5.2; however, the specimen was moderately hemolyzed. BUN and creatinine are 40 and 6.18. Albumin is low at 2.9. Emergency Department Course and Treatment: Patient was medicated with Zofran. Blood work was obtained to assess for anemia since blood is noted in the colostomy bag and to assess the pain in the right upper quadrant hepatic and lipase were ordered. Electrolytes were assessed to evaluate BUN to creatinine ratio that would suggest a significant GI bleed. Treatment Plan: Patient was reassessed at 1316. She was reassessed at 1338 after p.o. challenge and has passed p.o. challenge. Disposition: Discharged to home with prescription for Zofran Impression: Abdominal pain with nausea, vomiting diarrhea Mild dehydration Anemia unspecified Thrombocytopenia End-stage renal disease on hemodialysis This note was generated with [employer] dictation software. It may contain incorrect words, spelling, and punctuation that were not noted in review of the chart prior to signing ED Disposition - Plan for ED Patient: Disposition: Home or Assisted Living Chief Complaint: Nausea/Vomiting/Diarrhea Instructions: ED Vomiting Diarrhea Nonspecific Ad Prescriptions: Ondansetron [Zofran Odt] 4 mg PO Q8H PRN PRN #10 tab PRN Reason: Nausea Referrals: Ric Mccrary MD [Primary Care Provider] - 3-5 Days if not improving What to do if you have Problems For any increased pain, shortness of breath, bleeding, nausea or vomiting, chest pain, or any unexpected problems, contact your Primary Care Provider. Call [facility] ([phone]) or report to the closest Emergency Room. Call 911 if necessary. 04/08/18 1340 <Electronically signed by Zach Holt MD> Date Zach Holt MD Cosigner Signature (If Indicated): Date CC: Ric Mccrary MD CBC W/DIFF, AUTOMATED Collected: 04/08/2018 Status: F Source: [facility] 12:03 PM [facility] REPOSITORY TYPE CODE TESTS RESULT OUT OF RANGE REFERENCE UNITS LAB L100.1000 4.4-11.0 K/mm3 Normal WBC 5.9 LAB L100.1200 4.2-5.4 M/mm3 Low RBC 3.57 LAB L100.1300 12.0-15.0 g/dl Low HGB 10.9 LAB L100.1400 37-47 % Low HCT 34.3 LAB L100.1500 81-99 fL Normal MCV 96.1 LAB L100.1600 27.0-32.0 pg Normal MCH 30.5 LAB L100.1700 32-36 g/gl Low MCHC 31.8 LAB L100.1810 11.6-14.6 % High RDW CV 15.2 LAB L100.1820 35.1-43.9 fl High RDW SD 53.5 LAB L100.1900 150-450 K/mm3 Low PLT 129 LAB L100.2000 6.2-12.0 fl Normal MPV 9.6 LAB L100.2100 47-70 % Normal NEUT% 69.4 LAB L100.2200 19-41 % Normal LY% 20.7 LAB L100.2300 0-10 % Normal MONO% 4.0 LAB L100.2400 0-5 % High EO% 5.6 LAB L100.2500 0-1 % Normal BASO% 0.3 LAB L100.2550 0.0-0.9 % Normal IM GRAN % 0.000 Result Comment: IG% - Immature Granulocytes (promyelocytes, myelocytes and metamyelocytes) > 1% indicates that a LEFT SHIFT is Present. LAB L100.2620 2.0-7.7 X10 3/uL Normal Absolute Neut 4.1 LAB L100.2720 0.83-4.51 X10 3/ul Normal Absolute Lymph 1.23 Performed By: #### L100.0100 #### [facility] [address] [place], [address] BASIC METABOLIC Collected: 04/08/2018 Status: F Source: [facility] ([facility]) 12:03 PM [facility] REPOSITORY TYPE CODE TESTS RESULT OUT OF RANGE REFERENCE UNITS LAB L501.0100 74-106 mg/dL High GLU 115 Result Comment: Fasting Glucose result from 100 to 125 mg/dL suggests IMPAIRED HOMEOSTASIS per A.D.A. criteria. Please note revised GLUCOSE reference range effective 2017. LAB L501.1000 7-18 mg/dL High BUN 40 LAB L501.1100 0.55-1.02 mg/dL High CREAT,SERUM 6.18 Result Comment: The validity of the calculated GFR AND GFRAA in patients over 70 years has not been determined. Clinical correlation is essential. LAB L501.1110 >60 mL/min Low EST GFR 8 Result Comment: Non- GFR Calc LAB L501.1115 >60 mL/min Low EST GFR - AA 10 Result Comment: GFR Calc LAB L501.1255 ml/min Normal Estimated CRCL 10.87 LAB L501.1300 10-20 RATIO Low BUN/CRE 6.5 LAB L501.2200 8.5-10 mg/dL Low .1 CA 8.1 LAB L501.5300 136-14 mmol/L Normal 5 NA 142 LAB L501.5600 3.5-5. mmol/L High 1 K 5.2 Result Comment: Moderate Hemolysis, Result may be falsely increased. LAB L501.5900 98-107 mmol/L Normal CL 106 LAB L501.6100 21.0-32.0 mmol/L Normal CO2 27.0 LAB L501.6200 5-15 Normal 9 GAP Performed By: #### L500.2500, L500.3400, L501.2450 #### [facility] [address] [place], [place], [id number] LIVER PROFILE Collected: 04/08/2018 Status: F Source: [facility] 12:03 [facility] REPOSITORY TYPE CODE TESTS RESULT OUT OF RANGE REFERENCE UNITS LAB L501.1500 6.4-8.2 g/dL Normal T PROT 7.7 LAB L501.1800 3.2-5.0 g/dL Low ALB 2.9 LAB L501.1950 2.2-4.2 g/dL High GLOB 4.8 LAB L501.4100 15-37 U/L Normal AST 21 Result Comment: Moderate Hemolysis, Result may be falsely increased. LAB L501.4305 45-117 U/L Normal ALK P 92 LAB L501.4405 13-56 U/L Normal ALT 33 LAB L501.4600 0.20-1.00 mg/dL Normal T BILI 0.50 LAB L501.4700 0.00-0.30 mg/dL Normal D BILI 0.15 Performed By: #### L500.2500, L500.3400, L501.2450 #### [facility] [address] [facility] [place], [place], [id number] LIPASE Collected: 04/08/2018 Status: F Source: [place] 12:03 [facility] REPOSITORY TYPE CODE TESTS RESULT OUT OF RANGE REFERENCE UNITS LAB L501.2450 73-393 U/L Normal LIPASE 145 Performed By: #### L500.2500, L500.3400, L501.2450 #### [facility] [address] [place], [address] CBC Collected: 04/03/2018 Status: F Source: [facility] 7:10 PM [facility] REPOSITORY TYPE CODE TESTS RESULT OUT OF REFERENCE UNITS RANGE LAB WBC(LOINC) 4.60-10.80 10 3/mcL WBC 5.60 LAB RBCCT(LOINC 4.20-5.40 10 6/mcL ) Low RBC 3.70 LAB HGB(LOINC) 12.0-16.0 G/dL Low Hgb 11.9 LAB HCT(LOINC) 37.0-47.0 % Low Hct 35.3 LAB MCV(LOINC) 80.0-94.0 fL High MCV 95.4 LAB MCH(LOINC) 27.0-31.2 pg High MCH 32.2 LAB MCHC(LOINC) 33.0-37.0 G/dL MCHC 33.7 LAB RDW(LOINC) 11.5-14.5 % High RDW 17.1 LAB PLT(LOINC) 130-400 10 3/mcL Platelet 177 LAB MPV(LOINC) 7.4-10.4 fL Low MPV 6.5 Performed By: #### CBC, ADIFF, ANEU #### [address] [place], [place] [address] #### GFR, BAIC #### [address] [address] .AUTO DIFF Collected: 04/03/2018 Status: F Source: [facility] 7:10 [facility] REPOSITORY TYPE CODE TESTS RESULT OUT OF REFERENCE UNITS RANGE LAB GALINA(LOINC) 37.0-80.0 % Neutrophil % 71.9 LAB LYM(LOINC) 10.0-50.0 % Lymphocyte % 16.6 LAB MON(LOINC) 1.7-13.0 % Monocyte % 5.8 LAB EO(LOINC) 0.0-7.0 % Eosinophil % 5.3 LAB BAS(LOINC) 0.0-2.5 % Basophil % 0.4 LAB ABLYM(LOIN 0.77-3.85 10 3/mcL C) Lymphocyte, 0.90 Absolute LAB WILLIAM(LOINC 0.15-1.00 10 3/mcL ) Monocyte, 0.30 Absolute LAB AEOS(LOINC 0.00-0.40 10 3/mcL ) Eosinophil, 0.30 Absolute LAB ABAS(LOINC 0.00-0.19 10 3/mcL ) Basophil, 0.00 Absolute Performed By: #### CBC, ADIFF, ANEU #### [facility] [address] [place], [place] [address] #### GFR, BAIC #### [facility] [address] [place] [address] .NEUABS Collected: 04/03/2018 Status: F Source: [facility] 7:10 PM [facility] REPOSITORY TYPE CODE TESTS RESULT OUT OF REFERENCE UNITS RANGE LAB ANEU(LOINC) 2.85-6.16 10 3/mcL Neutrophil, 4.10 Absolute Performed By: #### CBC, ADIFF, ANEU #### [facility] [address] [place], [place] [address] #### GFR, BAIC #### [facility] [address] [place] [address] .GFR Collected: 04/03/2018 Status: F Source: [facility] 7:10 PM [facility] REPOSITORY TYPE CODE TESTS RESULT OUT OF REFERENCE UNITS RANGE LAB GFRAA(LOINC ml/min/1.73 ) sqm GFR 9 Lao Result Comment: GFR Population mean for , Non- Americans Ages 20-29 = 116 mL/min/1.73 sq.m. Ages 30-39 = 107 mL/min/1.73 sq.m. Ages 40-49 = 99 mL/min/1.73 sq.m. Ages 50-59 = 93 mL/min/1.73 sq.m. Ages 60-69 = 85 mL/min/1.73 sq.m. Ages 70+ = 75 mL/min/1.73 sq.m. Chronic Kidney Disease: Less than 60 mL/min/1.73 square meters End Stage Renal Disease: Less than 15 mL/min/1.73 square meters LAB GFRNO(LOINC) ml/min/1.73sqm GFR Non- 7 Result Comment: GFR Population mean for , Non- Americans Ages 20-29 = 116 mL/min/1.73 sq.m. Ages 30-39 = 107 mL/min/1.73 sq.m. Ages 40-49 = 99 mL/min/1.73 sq.m. Ages 50-59 = 93 mL/min/1.73 sq.m. Ages 60-69 = 85 mL/min/1.73 sq.m. Ages 70+ = 75 mL/min/1.73 sq.m. Chronic Kidney Disease: Less than 60 mL/min/1.73 square meters End Stage Renal Disease: Less than 15 mL/min/1.73 square meters Performed By: #### CBCPAOLA, ANEU #### [address] [address] #### GFR, BAIC #### [address] [address] BAIC Collected: 04/03/2018 Status: F Source: [facility] 7:10 PM [facility] REPOSITORY TYPE CODE TESTS RESULT OUT OF REFERENCE UNITS RANGE LAB GLU(LOINC) 70-105 mg/dL Glucose High Level 177 LAB NA(LOINC) 136-145 mmol/L Sodium High Level 147 LAB K(LOINC) 3.5-5.1 mmol/L Potassium Level 3.9 LAB CL(LOINC) 98-107 mmol/L Chloride 105 LAB CO2(LOINC) 22-29 mmol/L CO2 High 31 LAB EBAL(LOINC mEq/L ) Electrolyte Balance 11.0 LAB BUN(LOINC) 7-18 mg/dL BUN High 48 LAB CRE(LOINC) 0.55-1.02 mg/dL Creatinine High Lvl (s) 6.19 LAB BC(LOINC) 7-27 ratio BUN/Creatinine 8 Ratio LAB CAION(LOIN 1.12-1.32 mmol/L C) Calcium Ionized NT/see comment Result Comment: Acceptable specimen not received for testing; account was credited for Ionized Ca test Performed By: #### CBC, ADIFF, ANEU #### [address] [address] #### GFR, BAIC #### [address] [address] UA Collected: 04/03/2018 Status: F Source: [facility] 7:10 PM [facility] REPOSITORY TYPE CODE TESTS RESULT OUT OF RANGE REFERENCE UNITS LAB SPCUA(GUILLERMINA NC) UA Specimen Type Clean Catch LAB CLRUA(GUILLERMINA NC) UA Color Yellow LAB APPUA(GUILLERMINA Clear NC) UA Appear Clear LAB SGUA(LOIN C) UA Spec Unknown Grav 1.005 LAB GLUA(LOIN Negative mg/dL C) UA Glucose Unknown 1000 LAB BILUA(GUILLERMINA Negative NC) UA Bili Negative LAB KETUA(GUILLERMINA Negative mg/dL NC) UA Ketones Negative LAB BLDUA(GUILLERMINA Negative NC) UA Blood Unknown Trace-Intact LAB PHUA(LOIN C) UA pH 8.0 LAB PROUA(GUILLERMINA Negative mg/dL NC) UA Protein 30 LAB UROUA(GUILLERMINA E.U./dL NC) UA Urobilinogen 0.2 LAB NITUA(GUILLERMINA Negative NC) UA Nitrite Negative LAB LEUUA(GUILLERMINA Negative NC) UA Leuk Est Negative Performed By: #### UA, UAMICAO #### [address] [place], [place] [address] .URINALYSIS MICROSCOPIC Collected: 04/03/2018 Status: F Source: [place] () 7:10 PM [facility] REPOSITORY TYPE CODE TESTS RESULT OUT OF RANGE REFERENCE UNITS LAB WBCUA(LOIN None Seen /hpf C) UA WBC None Seen LAB RBCUA(LOIN None Seen /hpf C) Unknown UA RBC 0-5 LAB EPIUA(LOIN None Seen /hpf C) Unknown UA Squam Epithelial 0-5 LAB BACUA(LOIN /hpf C) Unknown UA Bacteria Trace Performed By: #### UA, UAMICAO #### [address] [address] EMERGENCY DEPARTMENT Observed: 03/26/2018 Status: F Source: [facility] [facility] 12:24 AM [facility] REPOSITORY [facility] Medical Records Department [address] [place] [address] Emergency Department Summary 03/25/18 1524 MR#: [id number] Acct: [id number] Name: KOURTNEY REZA Rep #: [id number] : 1975 42 From: Jules Story MD PCP: Ric Mccrary MD Status: DEP ER - ER Visit Summary Date of Service: 03/25/18 Chief Complaint: Headache, nausea and vomiting History of Present Illness: The patient is a [address] Mccrary. Patient reports that she has a headache that began yesterday. Is gradually gotten worse. Says sharp, throbbing pain in the frontal location. Is 10 at 10 worsening a 10 currently. Is worsened by light periods relieved by putting a cool rag over her eyes. She denies any change in her vision. No recent injury to her head. She does have a history of similar headaches. Patient reports she has been nausea and vomiting for the past 3 days. She reports this happening 2-3 times per day. No blood or emesis. She has abdominal pain that began after the vomiting. At 6 out of 10 severity. Said diffuse sharp pain. She reports that her colostomy is draining normally. She is oliguric and this is unchanged. She denies any fever, chills, chest pain, or shortness of breath. She has had a nonproductive cough for the past 2 days. Physical Examination: Vitals: Stable. Afebrile. General: Well-nourished and well-developed. Head: Normocephalic atraumatic. Neck: Supple, no lymphadenopathy. No JVD. Nontender. Cardiovascular: Regular rate and rhythm. No murmurs. Respiratory: No respiratory distress. Clear to auscultation bilaterally. Abdominal: Soft, mild diffuse tenderness to palpation, nondistended, normal bowel sounds. No guarding, rebound, or peritoneal signs. Back: Nontender. Extremities: Nontender, no edema. Skin: Normal color, no rash. Neurologic: Alert and oriented 3. Cranial nerves II through XII are intact. Normal strength and sensation. Psych: Normal affect. Test Results: CBC is marked for an H AND H 11.1 35.9, 7 neutrophils 74, lymphocytes 13, eosinophils of 7. Chem-7 is marked for glucose 112, BUN 42, creatinine 6.53. Of note her potassium is 5.0. LFTs marked for now a 3.1 globulin 4.3. AST is 12. Lipase is normal. Chest x-ray shows no infiltrate. Emergency Department Course and Treatment: Patient was treated with Zofran and morphine IV. She is resting comfortably. Treatment Plan: Patient will be discharged with Zofran. Instructed to follow-up her primary care physician 1-2 days if not improving. Return to the emergency department for any worsening symptoms. Disposition: To home in improved and stable condition. Impression: 1. Vomiting. 2. Abdominal pain, uncertain cause. 3. Cephalgia. This note was generated with [employer] dictation software. It may contain incorrect words, spelling, and punctuation that were not noted in review of the chart prior to signing ED Disposition - Plan for ED Patient: Chief Complaint: Nausea/Vomiting Instructions: ED Cephalgia Unspecified, ED Nausea Vomiting Prescriptions: Ondansetron [Zofran Odt] 4 mg PO Q8H PRN PRN #10 tablet PRN Reason: Nausea Referrals: Ric Mccrayr MD [Primary Care Provider] - 1-2 Days if not improving What to do if you have Problems For any increased pain, shortness of breath, bleeding, nausea or vomiting, chest pain, or any unexpected problems, contact your Primary Care Provider. Call [facility] ([phone]) or report to the closest Emergency Room. Call 911 if necessary. 03/26/18 0024 <Electronically signed by Jules Story MD> Date Jules Story MD Cosigner Signature (If Indicated): Date CC: Ric Mccrary MD CBC W/DIFF, AUTOMATED Collected: 03/25/2018 Status: F Source: [place] 3:34 PM [facility] REPOSITORY TYPE CODE TESTS RESULT OUT OF RANGE REFERENCE UNITS LAB L100.1000 4.4-11.0 K/mm3 Normal WBC 6.6 LAB L100.1200 4.2-5.4 M/mm3 Low RBC 3.59 LAB L100.1300 12.0-15.0 g/dl Low HGB 11.1 LAB L100.1400 37-47 % Low HCT 35.9 LAB L100.1500 81-99 fL High MCV 100.0 LAB L100.1600 27.0-32.0 pg Normal MCH 30.9 LAB L100.1700 32-36 g/gl Low MCHC 30.9 LAB L100.1810 11.6-14.6 % High RDW CV 16.6 LAB L100.1820 35.1-43.9 fl High RDW SD 60.4 LAB L100.1900 150-450 K/mm3 Low PLT 137 LAB L100.2000 6.2-12.0 fl Normal MPV 9.0 LAB L100.2100 47-70 % High NEUT% 73.7 LAB L100.2200 19-41 % Low LY% 13.0 LAB L100.2300 0-10 % Normal MONO% 5.9 LAB L100.2400 0-5 % High EO% 7.1 LAB L100.2500 0-1 % Normal BASO% 0.3 LAB L100.2550 0.0-0.9 % Normal IM GRAN % 0.000 Result Comment: IG% - Immature Granulocytes (promyelocytes, myelocytes and metamyelocytes) > 1% indicates that a LEFT SHIFT is Present. LAB L100.2620 2.0-7.7 X10 3/uL Normal Absolute Neut 4.9 LAB L100.2720 0.83-4.51 X10 3/ul Normal Absolute Lymph 0.86 Performed By: #### L100.0100 #### [facility] [address] [place], [address] BASIC METABOLIC Collected: 03/25/2018 Status: F Source: [facility] [facility] ([facility]) 3:34 PM [facility] REPOSITORY TYPE CODE TESTS RESULT OUT OF RANGE REFERENCE UNITS LAB L501.0100 74-106 mg/dL High GLU 112 Result Comment: Fasting Glucose result from 100 to 125 mg/dL suggests IMPAIRED HOMEOSTASIS per A.D.A. criteria. Please note revised GLUCOSE reference range effective 2017. LAB L501.1000 7-18 mg/dL High BUN 42 LAB L501.1100 0.55-1.02 mg/dL High CREAT,SERUM 6.53 Result Comment: The validity of the calculated GFR AND GFRAA in patients over 70 years has not been determined. Clinical correlation is essential. LAB L501.1110 >60 mL/min Low EST GFR 7 Result Comment: Non- GFR Calc LAB L501.1115 >60 mL/min Low EST GFR - AA 9 Result Comment: GFR Calc LAB L501.1255 ml/min Normal Estimated CRCL 10.29 LAB L501.1300 10-20 RATIO Low BUN/CRE 6.4 LAB L501.2200 8.5-10 mg/dL Normal .1 CA 8.8 LAB L501.5300 136-14 mmol/L Normal 5 NA 142 LAB L501.5600 3.5-5. mmol/L Normal 1 K 5.0 LAB L501.5900 98-107 mmol/L Normal CL 104 LAB L501.6100 21.0-3 mmol/L Normal 2.0 CO2 28.0 LAB L501.6200 5-15 Normal GAP 10 Performed By: #### L500.2500, L500.3400, L501.2450 #### [facility] [address] [place], [place], [id number] LIVER PROFILE Collected: 03/25/2018 Status: F Source: [place] 3:34 PM [facility] REPOSITORY TYPE CODE TESTS RESULT OUT OF RANGE REFERENCE UNITS LAB L501.1500 6.4-8.2 g/dL Normal T PROT 7.4 LAB L501.1800 3.2-5.0 g/dL Low ALB 3.1 LAB L501.1950 2.2-4.2 g/dL High GLOB 4.3 LAB L501.4100 15-37 U/L Low AST 12 LAB L501.4305 45-117 U/L Normal ALK P 85 LAB L501.4405 13-56 U/L Normal ALT 29 LAB L501.4600 0.20-1.00 mg/dL Normal T BILI 0.40 LAB L501.4700 0.00-0.30 mg/dL Normal D BILI 0.14 Performed By: #### L500.2500, L500.3400, L501.2450 #### [facility] [address] [place], [address] LIPASE Collected: 03/25/2018 Status: F Source: [place] 3:34 PM [facility] REPOSITORY TYPE CODE TESTS RESULT OUT OF RANGE REFERENCE UNITS LAB L501.2450 73-393 U/L Normal LIPASE 177 Performed By: #### L500.2500, L500.3400, L501.2450 #### [facility] [address] [place], [address] CHEST PA AND LATERAL Observed: 03/25/2018 Status: F Source: [place] 3:24 PM [facility] REPOSITORY [facility] Imaging Services [address] [place] [address] Chest PA and Lateral MR#: [id number] Acct: [id number] Name: KOURTNEY REZA Rep #: [id number] : 1975 F 42 From: James Kahn MD PCP: Ric Mccrary MD Status: REG ER Study: Chest PA and Lateral Date of Exam: 03/25/18 Exam# [id number] Ordering Dr: Jules Story MD STUDY: X-RAY CHEST REASON FOR EXAM: Female, 42 years old. Cough and headache. TECHNIQUE: Frontal and lateral views of the chest. COMPARISON: 03/17/2018. FINDINGS: The lungs are clear and expanded. There is no demonstrated pleural abnormality. Normal size heart. Normal mediastinum and latrell. Normal visualized pulmonary arteries. Normal visualized aortic arch and descending thoracic aorta. Normal visualized thoracic spine. Normal visualized ribs, clavicles, and shoulders. There is no demonstrated abnormality of the visualized soft tissue structures of the upper abdomen. RAD/Chest PA and Lateral IMPRESSION: Normal x-ray examination of the chest. Electronically Signed: James Kahn MD at 16:14 EDT , Service support , CC: Jules Story MD; Ric Mccrary MD Tester Operator Helper: Signed 12 LEAD ELECTROCARDIOGRAM Observed: 03/20/2018 Status: F Source: [place] 2[facility] [facility] [address] [place] [address] 12 Lead EKG 03/17/18 1440 MR#: [id number] Acct: [id number] Name: KOURTNEY REZA Rep #: [id number] : 1975 42 From: Robert Tompkins MD Attending Dr: Status: DEP ER Ordering Dr: Pio Krishnamurthy MD Date: 03/17/18 Location: ED Sex: F C Admitted: Test Reason : CHEST PAIN Blood Pressure : / mmHG Vent. Rate : 083 BPM Atrial Rate : 083 BPM P-R Int : 142 ms QRS Dur : 090 ms QT Int : 402 ms P-R-T Axes : 049 062 252 degrees QTc Int : 472 ms Normal sinus rhythm T wave abnormality, consider inferior ischemia Prolonged QT Abnormal ECG Confirmed by LEDA BEASLEY, ROBERT ([id number]), web editor SHANIA SOLITARIO ([id number]) on 03/20/2018 2:39:44 PM Referred By: Confirmed By:ROBERT TOMPKINS MD 03/20/18 1439 Date Robert Tompkins MD CC: Pio Krishnamurthy MD; Ric Mccrary MD Signed CARDIOLOGY VISIT Observed: 03/19/2018 Status: F Source: [place] REPORT 10:14 AM [facility] REPOSITORY [facility] [address] [place] [address] OFFICE VISIT Date of Service: 03/14/18 MR#: [id number] Acct: [id number] Name: KOURTNEY REZA Rep #: [id number] : 1975 Provider: ASHISH Tomlinson Age/Sex: 42/F Location: [facility] Status: Signed HPI HPI Details: KOURTNEY REZA, is a 42 F who presents to the office today for a cardiovascular outpatient follow-up. She has history of coronary artery disease status post PTCA/VIKY to mid LAD in February 2018, remote PDA repair, end-stage renal disease on hemodialysis on Tuesdays, , and Saturdays, anemia of chronic disease, nonischemic cardiomyopathy, diabetes, hypertension, hyperlipidemia, and gastroparesis. She presented [facility] emergency department on February 24, 2018 with recurrent chest pain. She underwent a heart catheterization that resulted and PTCA/VIKY to mid LAD with recommendation of medical management for mid obtuse marginal #1. She was discharged home. She then presented to [facility] emergency department 02/28/18 days later for dizziness and hyperkalemia. She again presented to the ED on 03/06/18 for bleeding from fistula site. She presented to the ED again on 03/12/18 for nausea, vomiting, and diarrhea. Pt. denies arm, jaw, or neck discomfort. Her exercise tolerance is stable via walking 30 minutes a evening and water aerobics. Pt. denies symptoms of CHF, palpitations, lightheadedness, dizziness, near syncope, or syncopal episodes. Pt. denies edema or claudication issues. Pt. denies orthopnea, PND, fever, chills, blood in urine, blood in stool, myalgia, or unexplainable fatigue. She states noticing chest pain that occurred while lying down and lasted for 10 minutes. This improve with position changes. This occurred twice. This did not occur with any exertion. Intake Vital Signs03/14/18 Height 5 ft 6 in 03/14/18 Weight: 16 lb 03/14/18 Body Mass Index (BMI) 2.5 03/14/18 Blood Pressure 136/74 03/14/18 Blood Pressure Location Rt brachial Intake Visit Reasons: S/P PCI Formation Fracturing Operator Required: No Accompanied by: none Is patient in pain?: No Allergies latex Allergy (Verified 03/12/18 17:50) Rash levofloxacin [From Levaquin] Adverse Reaction (Verified 03/12/18 17:50) PT CAN'T REMEMBER metoclopramide HCl [From Reglan] Adverse Reaction (Verified 03/12/18 17:50) Nausea NSAIDS (Non-Steroidal Anti-Inflamma Adverse Reaction (Verified 03/12/18 17:50) kidney function oxycodone HCl [From Percocet] Adverse Reaction (Verified 03/12/18 17:50) HALLUCINATIONS Medications Aspirin [Aspirin, Baby] 81 mg PO DAILY@0800 /16 [History Confirmed 03/14/18] Calcium Acetate [Phoslo Gel Cap] 1,334 mg PO TIDCM 01/26/16 [History Confirmed 03/14/18] Ergocalciferol [Vitamin D] 50,000 unit PO FR 01/26/16 [History Confirmed 03/14/18] Insulin Aspart [Novolog Flexpen] 10 units SC TIDCM 01/26/16 [History Confirmed 03/14/18] Insulin Glargine,Hum.rec.anlog [Lantus] 5 unit SQ QHS 01/09/17 [History Confirmed 03/14/18] proMETHazine tablet [Phenergan tablet] 25 mg PO Q6H PRN PRN #10 tab 03/06/17 [Rx Confirmed 03/14/18] Lisinopril 20 mg PO DAILY 03/29/17 [History Confirmed 03/14/18] Sodium Bicarbonate 650 mg PO TUTHSA 03/29/17 [History Confirmed 03/14/18] Fluoxetine HCl 40 mg PO DAILY 09/02/17 [History Confirmed 03/14/18] ALPRAZolam [Xanax] 0.5 mg PO DAILY 11/21/17 [History Confirmed 03/14/18] Omeprazole Magnesium [Prilosec Otc] 20 mg PO DAILY 02/08/18 [History Confirmed 03/14/18] Clopidogrel Bisulfate [Plavix] 75 mg PO DAILY #90 tab 02/27/18 [Rx Confirmed 03/14/18] Isosorbide Mononitrate [Isosorbide Mononitrate ER] 60 mg PO DAILY 02/28/18 [History Confirmed 03/14/18] Atorvastatin Calcium 40 mg PO QHS #30 tab 03/01/18 [Rx Confirmed 03/14/18] Ondansetron [Zofran Odt] 4 mg PO Q8H PRN PRN #10 tab 03/12/18 [Rx Confirmed 03/14/18] carvedilol 25 mg tablet 25 mg PO BID 03/14/18 [History Confirmed 03/14/18] PFSH Medical History 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) ESRD (end stage renal disease) on dialysis (Chronic) Decubitus ulcer, stage III (Chronic) Anemia, chronic disease (Chronic) Pilonidal cyst with abscess (Chronic) GABRIEL (obstructive sleep apnea) (Chronic) HTN (hypertension) (Chronic) Nonischemic cardiomyopathy (Resolved) Diabetes mellitus type 1 (Chronic) Hyperlipidemia (Chronic) Obesity (BMI 30.0-34.9) (Chronic) Gastroparesis (Chronic) Surgical History Stented coronary artery (Chronic 02/26/18) S/P repair of PDA (patent ductus arteriosus) (Resolved) Social History Smoking Status: Never smoker ROS Const Const: Negative for fatigue, weakness, body ache, fever(s) or chills ENT ENT: Negative for dizziness Cardio Chest Pain: Yes Palpitations: No Edema: None Muscle aches with walking: None Resp Respiratory: Negative for SOB with activity, SOB at rest, SOB orthopnea\SOB lying down or paroxysmal nocturnal dyspnea GI GI: Negative nausea, black,tarry stools, bright, red blood in stools or vomiting blood/hematemesis : Negative for hematuria or frequent nighttime urination/ nocturia Musc Musc: Negative for muscle aches/ myalgia Skin Skin: Negative non-healing lesions or rash Neuro Neuro: Negative for weakness, dizziness, lightheadedness, near syncope, syncope or orthostatic symptoms Endo Endo: Negative for fatigue Allergy Allergy/Immunology: Negative for rash Cardiology Exam Const Appearance: cooperative, healthy appearing, comfortable and no acute distress Nutritional Appearance: well nourished and overweight Orientation: alert, awake and oriented x3 Head Head: normal to inspection Ears: hearing grossly normal bilaterally Nose: external nose normal Face and Sinus: face symmetric Mouth: oral mucosae normal Eyes General: appearance normal, both eyes and all related structures Eyelids: eyelids normal EOM: EOM intact bilaterally Neck Neck: no JVD and normal visual inspection Carotids: normal carotid upstroke Chest Chest inspection: normal inspection of the chest and normal respiratory effort; negative cough Auscultation: Bilateral: Clear to Auscultation Cardio Rate: regular rate Rhythm: regular rhythm Heart sounds: S1 normal and S2 normal; negative rub, gallop or murmur GI GI: normal to inspection Neuro General: alert, awake, oriented x3 and CN's II-XI intact bilaterally Skin Skin: no rashes or lesions noted Extremities Pulses: Normal: Right Posterior Tibial Pulse, Left Posterior Tibial Pulse, Right Radial Pulse, Left Radial Pulse Lower Extremity Edema: None: Bilateral Psych Psychological: normal affect Supplemental Info Heart catheterization from February 2018 showed single-vessel coronary artery disease in the mid LAD, elevated LVEDP, ejection fraction of 55%, left main is angiographically normal, proximal LAD with mild calcification, mid LAD with 75% stenosis, OM #1 with mild to moderate luminal irregularities up to 50%, distal RCA with mild calcification, and RT PLV with mild luminal irregularities less than 30%. Stress echocardiogram from January 2018 showed ejection fraction 45% and was considered a normal, adequate, W an echocardiogram that was negative for ischemia by both EKG and echocardiographic criteria. No anginal symptoms were noted. Assessment AND Plan 1. Atherosclerosis of ute coronary artery of ute heart without angina pectoris I25.10 S/P PTCA/VIKY to mid LAD in February 2018 OM #1 noted to be 50%; SATNAM Ruiz Patient's 2 previous episode of chest pain appear atypical. She denies any exertional chest pain. She denies any exertional shortness of breath. At this time we will continue to monitor. Her heart catheterization that resulted and PTCA/VIKY to mid LAD in February 2018 did show that her OM #1 showed 50% stenosis. Her ejection fraction was noted to be 55%. At this time we will continue to monitor and she will continue current medication. She was reminded of the importance of lifestyle and risk factor modification. He refuses cardiac rehab at this time due to being active on her own in dialysis 3 times a week. We will still see her in approximately 3 months to evaluate overall progress. 2. Stented coronary artery Z95.5 FFR of LAD 0.82; VIKY of mid LAD with 2.5 X 24 mm Promus Synergy, OM <50% stenosis per Dr. Underwood @ [facility] SATNAM Ruiz She will continue current treatment plan as outlined above. 3. Essential hypertension I10 SATNAM Ruiz Patient's blood pressure is well-controlled today in the office. We will continue to monitor this. We will not make any medication regimen changes. 4. S/P repair of PDA (patent ductus arteriosus) Z98.890; Z87.74 At young age SATNAM Ruiz This appears stable. She will continue current medications and we will continue to monitor. 5. Hyperlipidemia, unspecified hyperlipidemia type E78.5 SATNAM Ruiz She states this is managed by primary care physician. She will continue current statin medication. 6. Nonischemic cardiomyopathy I42.8 Joselin Tomlinson, STRAWHAT SIZER-C This has been noted to be 45 50% in the past with normal coronary arteries. Her most recent heart catheterization showed ejection fraction of 55%. She denies any shortness of breath, lower extremity edema, or activity intolerance. At this time she will continue with beta-lewis and CAM inhibitor. We will continue to monitor this through history, exam, and repeat echocardiogram as needed. Plan Detail Additional Comments - SATNAM Hsu Discussed the above patient with Dr. Underwood, he agrees with the plan of care. Thank you for allowing us to participate in the patients plan of care, if you have any questions please do not hesitate to call. This note was generated using a voice recognition system and there may be incorrect words, spelling or punctuation that were not noted when reviewing the office note prior to saving. Follow Up 3 Months (STRAWHAT SIZER/PA) 9 Months (VANIAN) Coding Level of Care Code Off vis,est,level 3 Diagnoses Atherosclerosis of ute coronary artery of ute heart without angina pectoris I25.10 Koi vs. transplanted heart: ute heart Stented coronary artery Z95.5 Essential hypertension I10 Hypertension type: essential hypertension S/P repair of PDA (patent ductus arteriosus) Z98.890; Z87.74 Hyperlipidemia, unspecified hyperlipidemia type E78.5 Hyperlipidemia type: unspecified Nonischemic cardiomyopathy I42.8 Coding Level of Care Code Off vis,est,level 3 Diagnoses Atherosclerosis of ute coronary artery of ute heart without angina pectoris I25.10 Koi vs. transplanted heart: ute heart Stented coronary artery Z95.5 Essential hypertension I10 Hypertension type: essential hypertension S/P repair of PDA (patent ductus arteriosus) Z98.890; Z87.74 Hyperlipidemia, unspecified hyperlipidemia type E78.5 Hyperlipidemia type: unspecified Nonischemic cardiomyopathy I42.8 03/14/18 1305 <Electronically signed by Placido HAY> Date Placido HAY 03/19/18 1014<Electronically signed by Wm Underwood MD> Cosigner Signature: Date (if applicable) Wm Underwood MD CC: Ric Mccrary MD EMERGENCY DEPARTMENT Observed: 03/17/2018 Status: F Source: [place] SUMMARY 7:51 PM [facility] REPOSITORY [facility] Medical Records Department [address] [place] [address] Emergency Department Summary 03/17/18 1452 MR#: [id number] Acct: [id number] Name: KOURTNEY REZA Rep #: [id number] : 1975 42 From: Pio Krishnamurthy MD PCP: Ric Mccrary MD Status: DEP ER - ER Visit Summary Date of Service: 03/17/18 Chief Complaint: Chest pain History of Present Illness: The patient is a 42 F presents to the emergency department with chest pain. Patient has a history of end-stage renal disease. She is on dialysis. The patient was at dialysis today. She states that she had sudden onset sharp stabbing pain in her mid chest. The patient did have a recent heart catheterization with stent placement. She states that this pain felt different. She has also been nauseated with some bouts of vomiting this week. She has had some loose watery diarrhea. Patient does have recurrent enteritis. She also had C. difficile about 4 months ago. She denies any recent antibiotic use and she denies any fevers but does admit to some chills and sweats. She has been compliant with her medications. Physical Examination: Vital signs reviewed General: Well-nourished, well-developed Head: Normocephalic, atraumatic Eyes: Pupils equal and reactive, extraocular muscles intact Neck, supple, no lymphadenopathy Heart: Regular rate and rhythm Respiratory: No distress, clear bilaterally Abdomen: Soft, nontender, nondistended, no peritoneal signs Back: Nontender Extremities: Nontender, no edema, no cords Skin: Normal color no rash Neuro: Alert and oriented, no focal or lateralizing deficits Test Results: [] Emergency Department Course and Treatment: The patient presents with a stabbing chest pain that occurred during dialysis. By the time she arrived here, the pain had resolved. Her EKG does show inferior T-wave inversions. It was changed from February, but the same from January. Patient was given morphine and remained pain-free. She has had some upper GI type illness with nausea and vomiting. She states she has also had a lot of loose bowel movements and has been emptying her bag more frequently. I did obtain C. difficile. Patient's troponin is indeterminate. However, her pain does not seem cardiac. I did discuss the patient with Dr. Underwood, hobbies and crafts sales representative on-call who actually did her heart catheterization. I have reviewed her heart catheterization. She only had one area with some disease that required intervention. Her pain does seem atypical. She is pain-free. She has outpatient follow-up in place with cardiology this week. Patient again states that this is very different than the chest pain she had with her prior cardiac intervention. Given her recent heart cath, resolution of pain, and clinical stability I do feel that she is safe for outpatient therapy. The patient is comfortable with this plan of care. Treatment Plan: [] Disposition: [] Impression: 1. Atypical chest pain This note was generated with [employer] dictation software. It may contain incorrect words, spelling, and punctuation that were not noted in review of the chart prior to signing ED Disposition - Plan for ED Patient: Chief Complaint: Chest Pain Instructions: ED Chest Pain Atypical Unkn Cause Referrals: Kaitlynn Green MD [STAFF PHYSICIAN] - What to do if you have Problems For any increased pain, shortness of breath, bleeding, nausea or vomiting, chest pain, or any unexpected problems, contact your Primary Care Provider. Call [facility] ([phone]) or report to the closest Emergency Room. Call 911 if necessary. 03/17/181950 <Electronically signed by Pio Krishnamurthy MD> Date Pio Krishnamurthy MD Cosigner Signature (If Indicated): Date CC: Ric Mccrary MD CHEST 1 VIEW Observed: 03/17/2018 Status: F Source: [place] (PORTABLE) 2:51 PM [facility] REPOSITORY [facility] Imaging Services [address] [place] [address] Chest 1 View (Portable) MR#: [id number] Acct: [id number] Name: KOURTNEY REZA Rep #: [id number] : 1975 F 42 From: Antwon Chino MD PCP: Ric Mccrary MD Status: REG ER Study: Chest 1 View (Portable) Date of Exam: 03/17/18 Exam# [id number] Ordering Dr: Pio Krishnamurthy MD STUDY: X-RAY CHEST REASON FOR EXAM: Female, 42 years old. Chest pain. TECHNIQUE: Single frontal view of the chest. COMPARISON: March 06, 2018 FINDINGS: The lungs are mildly hyperinflated/hyperexpanded. There is no demonstrated pleural abnormality. There is stable borderline cardiomegaly. Normal mediastinum and latrell. Normal visualized pulmonary arteries. Normal visualized aortic arch and descending thoracic aorta. Normal visualized thoracic spine. Normal visualized ribs, clavicles, and shoulders. There is no demonstrated abnormality of the visualized soft tissue structures of the upper abdomen. RAD/Chest 1 View (Portable) IMPRESSION: Stable borderline cardiomegaly with mild hyperexpansion/hyperinflation. No new or acute pathology. Electronically Signed: Antwon Chino MD at 15:32 EDT , Service support , CC: Pio Krishnamurthy MD; Ric Mccrary MD Tester Operator Helper: Signed COMPREHENSIVE METABOLIC Collected: 03/17/2018 Status: F Source: [facility] 2:47 PM [facility] REPOSITORY TYPE CODE TESTS RESULT OUT OF RANGE REFERENCE UNITS LAB L501.0100 74-106 mg/dL High GLU 261 Result Comment: Glucose result greater than or equal to 200 mg/dL suggests DIABETES MELLITUS per A.D.A. criteria. Please note revised GLUCOSE reference range effective 2017. LAB L501.1000 7-18 mg/dL High BUN 23 LAB L501.1100 0.55-1.02 mg/dL High CREAT,SERUM 4.07 Result Comment: The validity of the calculated GFR AND GFRAA in patients over 70 years has not been determined. Clinical correlation is essential. LAB L501.1110 >60 mL/min Low EST GFR 13 Result Comment: Non- GFR Calc LAB L501.1115 >60 mL/min Low EST GFR - AA 15 Result Comment: GFR Calc LAB L501.1255 ml/min Normal Estimated CRCL 16.51 LAB L501.1300 10-20 RATIO Low BUN/CRE 5.7 LAB L501.1500 6.4-8. g/dL Normal 2 T PROT 7.5 LAB L501.1800 3.2-5. g/dL Low 0 ALB 2.9 LAB L501.1950 2.2-4. g/dL High 2 GLOB 4.6 LAB L501.2000 0.9-2. RATIO Low 4 A/G 0.6 LAB L501.2200 8.5-10 mg/dL Low .1 CA 7.5 LAB L501.4100 15-37 U/L Normal AST 20 LAB L501.4305 45-117 U/L Normal ALK P 106 LAB L501.4405 13-56 U/L Normal ALT 35 LAB L501.4600 0.20-1 mg/dL Normal .00 T BILI 0.50 LAB L501.5300 136-14 mmol/L Normal 5 NA 138 LAB L501.5600 3.5-5. mmol/L Low 1 K 3.3 LAB L501.5900 98-107 mmol/L Low CL 96 LAB L501.6100 21.0-3 mmol/L Normal 2.0 CO2 32.0 LAB L501.6200 5-15 Normal GAP 10 Performed By: #### L500.4050, L501.2450, L501.4010 #### [facility] [address], [address] LIPASE Collected: 03/17/2018 Status: F Source: [place] 2:47 PM [facility] REPOSITORY TYPE CODE TESTS RESULT OUT OF RANGE REFERENCE UNITS LAB L501.2450 73-393 U/L Normal LIPASE 228 Performed By: #### L500.4050, L501.2450, L501.4010 #### [facility] [address] [facility] [place], [address] TROPONIN-I Collected: 03/17/2018 Status: F Source: [place] 2:47 PM [facility] REPOSITORY TYPE CODE TESTS RESULT OUT OF RANGE REFERENCE UNITS LAB L501.4010 <0.045 ng/mL High 0.097 TROPONIN-I Result Comment: TROPONIN-I EXPECTED VALUES <0.045 Negative 0.045 - 0.590 Consistent with Cardiac Damage > OR = 0.600 Critical Value Not every elevated troponin is indicative of [place]. These values should be used with clinical judgement in examining the patient's clinical picture for diagnosis. To establish a diagnosis of [place] versus myocardial injury, there must be a demonstrated rise and/or fall in the troponin values, in addition to ischemic symptoms, EKG changes, new regional wall motion abnormality, and/or angiographical evidence. PLEASE NOTE: REFERENCE RANGES EDITED 17 Performed By: #### L500.4050, L501.2450, L501.4010 #### [facility] [address] [place], [address] CBC W/DIFF, AUTOMATED Collected: 03/17/2018 Status: F Source: [place] 2:47 [facility] REPOSITORY TYPE CODE TESTS RESULT OUT OF RANGE REFERENCE UNITS LAB L100.1000 4.4-11.0 K/mm3 Normal WBC 5.7 LAB L100.1200 4.2-5.4 M/mm3 Low RBC 3.37 LAB L100.1300 12.0-15.0 g/dl Low HGB 10.5 LAB L100.1400 37-47 % Low HCT 32.9 LAB L100.1500 81-99 fL Normal MCV 97.6 LAB L100.1600 27.0-32.0 pg Normal MCH 31.2 LAB L100.1700 32-36 g/gl Low MCHC 31.9 LAB L100.1810 11.6-14.6 % High RDW CV 16.1 LAB L100.1820 35.1-43.9 fl High RDW SD 55.4 LAB L100.1900 150-450 K/mm3 Low PLT 111 LAB L100.2000 6.2-12.0 fl Normal MPV 8.7 LAB L100.2100 47-70 % High NEUT% 74.0 LAB L100.2200 19-41 % Low LY% 14.8 LAB L100.2300 0-10 % Normal MONO% 3.9 LAB L100.2400 0-5 % High EO% 6.9 LAB L100.2500 0-1 % Normal BASO% 0.2 LAB L100.2550 0.0-0.9 % Normal IM GRAN % 0.200 Result Comment: IG% - Immature Granulocytes (promyelocytes, myelocytes and metamyelocytes) > 1% indicates that a LEFT SHIFT is Present. LAB L100.2620 2.0-7.7 X10 3/uL Normal Absolute Neut 4.2 LAB L100.2720 0.83-4.51 X10 3/ul Normal Absolute Lymph 0.84 Performed By: #### L100.0100 #### [facility] [address] [place], [address] Observed: 03/17/2018 Status: F Source: [place] CDIFF (MOLECULAR) 1:05 PM [facility] REPOSITORY Is the patient receiving laxatives? N New/unexplained onset of 3 or more stools in past 24 hrs? Y Has pt arrived? Y Cdiff-Molecular Normal Reference Range = Negative C. Diff DNA Negative- No toxigenic C. Diff DNA Detected NAAT METHOD Testing was performed using nucleic acid amplification Performed By: #### M100.6796 #### [facility] [place], [address] DISCHARGE INSTRUCTION Observed: 03/12/2018 Status: F Source: [place] 8:05 PM [facility] REPOSITORY [facility] Medical Records Department [address] [place] [address] Discharge Instruction 03/12/182003 MR#: [id number] Acct: [id number] Name: KOURTNEY REZA Rep #: [id number] : 1975 42 From: Coral Nation MD PCP: Ric Mccrary MD Status: REG ER ED Disposition - Plan for ED Patient: Chief Complaint: Nausea/Vomiting Instructions: ED Nausea Vomiting Prescriptions: Ondansetron [Zofran Odt] 4 mg PO Q8H PRN PRN #10 tablet PRN Reason: Nausea Referrals: Ric Mccrary MD [Primary Care Provider] - What to do if you have Problems For any increased pain, shortness of breath, bleeding, nausea or vomiting, chest pain, or any unexpected problems, contact your Primary Care Provider. Call [facility] ([phone]) or report to the closest Emergency Room. Call 911 if necessary. 03/12/182004 <Electronically signed by Coral Nation MD> Date Coral Nation MD Cosigner Signature (If Indicated): Date CC: Ric Mccrary MD EMERGENCY DEPARTMENT Observed: 03/12/2018 Status: F Source: [place] SUMMARY 8:04 PM [facility] REPOSITORY [facility] Medical Records Department [address] [place] [address] Emergency Department Summary 03/12/18 1818 MR#: [id number] Acct: [id number] Name: KOURTNEY REZA Rep #: [id number] : 1975 42 From: Coral Nation MD PCP: Ric Mccrary MD Status: REG ER - ER Visit Summary Date of Service: 03/12/18 Chief Complaint: Nausea, vomiting, diarrhea History of Present Illness: The patient is a 42 F presenting with nausea, vomiting, diarrhea. She states it started yesterday. She states she ate [facility] pizza. 5-6 hours later, she started to feel ill and had vomiting and diarrhea. She states several other people who ate the same pizza also were ill. She denies blood in her stool or emesis. She has diffuse abdominal cramping. She denies fever. Denies chest pain or shortness of breath. She did miss dialysis on Monday but states that she is under her normal dry weight. She has a history of a diverting colostomy. Physical Examination: Vitals are stable. Patient is afebrile. Alert no acute distress. HEENT exam is unremarkable. Neck is supple. Lungs are clear and equal bilaterally. Heart is regular rate and rhythm. Abdomen is soft mild diffuse tenderness with no rebound or guarding. Colostomy Extremities are unremarkable. Skin is warm and dry. No focal neurologic deficit. Remainder of exam is unremarkable. Emergency Department Course and Treatment: Patient given IV fluids, Zofran, morphine. CBC showed hemoglobin 10.0. Chemistries show potassium 5.4, glucose 220, BUN 53, creatinine 8.25. CT abdomen and pelvis shows no evidence of small or large bowel obstruction. Left lower quadrant ostomy. Large fat-containing periumbilical hernia. Extensive atherosclerotic disease of the small vessels of the abdomen and pelvis. Nonspecific bilateral perinephric fat stranding, stable from prior exam. On repeat evaluation, patient is feeling improved. Abdominal exam is soft and nontender. She is requesting to go home. She will follow-up with her dialysis as scheduled tomorrow. She is advised return to ED for any worsening complaints. Disposition: Discharge home Impression: Vomiting and diarrhea This note was generated with [employer] dictation software. It may contain incorrect words, spelling, and punctuation that were not noted in review of the chart prior to signing ED Disposition - Plan for ED Patient: Chief Complaint: Nausea/Vomiting Referrals: Ric Mccrary MD [Primary Care Provider] - What to do if you have Problems For any increased pain, shortness of breath, bleeding, nausea or vomiting, chest pain, or any unexpected problems, contact your Primary Care Provider. Call [facility] ([phone]) or report to the closest Emergency Room. Call 911 if necessary. 03/12/182003 <Electronically signed by Coral Nation MD> Date Coral Nation MD Cosigner Signature (If Indicated): Date CC: Ric Mccrary MD CBC W/DIFF, AUTOMATED Collected: 03/12/2018 Status: F Source: [place] 6:20 PM [facility] REPOSITORY TYPE CODE TESTS RESULT OUT OF RANGE REFERENCE UNITS LAB L100.1000 4.4-11.0 K/mm3 Normal WBC 7.6 LAB L100.1200 4.2-5.4 M/mm3 Low RBC 3.19 LAB L100.1300 12.0-15.0 g/dl Low HGB 10.0 LAB L100.1400 37-47 % Low HCT 31.4 LAB L100.1500 81-99 fL Normal MCV 98.4 LAB L100.1600 27.0-32.0 pg Normal MCH 31.3 LAB L100.1700 32-36 g/gl Low MCHC 31.8 LAB L100.1810 11.6-14.6 % High RDW CV 15.3 LAB L100.1820 35.1-43.9 fl High RDW SD 54.2 LAB L100.1900 150-450 K/mm3 Normal PLT 181 LAB L100.2000 6.2-12.0 fl Normal MPV 8.9 LAB L100.2100 47-70 % High NEUT% 70.2 LAB L100.2200 19-41 % Normal LY% 19.6 LAB L100.2300 0-10 % Normal MONO% 4.9 LAB L100.2400 0-5 % Normal EO% 4.5 LAB L100.2500 0-1 % Normal BASO% 0.4 LAB L100.2550 0.0-0.9 % Normal IM GRAN % 0.400 Result Comment: IG% - Immature Granulocytes (promyelocytes, myelocytes and metamyelocytes) > 1% indicates that a LEFT SHIFT is Present. LAB L100.2620 2.0-7.7 X10 3/uL Normal Absolute Neut 5.3 LAB L100.2720 0.83-4.51 X10 3/ul Normal Absolute Lymph 1.49 Performed By: #### L100.0100 #### [facility] [address] [place], [address] BASIC METABOLIC Collected: 03/12/2018 Status: F Source: CIARAN PROFILE (BMP) 6:20 PM [facility] REPOSITORY TYPE CODE TESTS RESULT OUT OF RANGE REFERENCE UNITS LAB L501.0100 74-106 mg/dL High GLU 220 Result Comment: Glucose result greater than or equal to 200 mg/dL suggests DIABETES MELLITUS per A.D.A. criteria. Please note revised GLUCOSE reference range effective 2017. LAB L501.1000 7-18 mg/dL High BUN 53 LAB L501.1100 0.55-1.02 mg/dL High alert CREAT,SERUM 8.25 Result Comment: Critical Result(s) Called Prachi AMIN at: 18:52:00 03/12/2018 by: CRYSTAL ALTMAN The validity of the calculated GFR AND GFRAA in patients over 70 years has not been determined. Clinical correlation is essential. LAB L501.1110 >60 mL/min Low EST GFR 6 Result Comment: Non- GFR Calc LAB L501.1115 >60 mL/min Low EST GFR - AA 7 Result Comment: GFR Calc LAB L501.1255 ml/min Normal Estimated CRCL 8.15 LAB L501.1300 10-20 RATIO Low BUN/CRE 6.4 LAB L501.2200 8.5-10. mg/dL Low 1 CA 8.1 LAB L501.5300 136-145 mmol/L Normal NA 140 LAB L501.5600 3.5-5.1 mmol/L High K 5.4 LAB L501.5900 98-107 mmol/L Normal CL 107 LAB L501.6100 21.0-32 mmol/L Normal .0 CO2 24.0 LAB L501.6200 5-15 Normal GAP 9 Performed By: #### L500.2500 #### [facility] [address] [place], [address] ABDOMEN/PELVIS WITHOUT Observed: 03/12/2018 Status: F Source: [place] CONT 6:17 PM [facility] REPOSITORY [facility] Imaging Services [address] [place] [address] Abdomen/Pelvis without Cont MR#: [id number] Acct: [id number] Name: KOURTNEY REZA Rep #: [id number] : 1975 F 42 From: Quincy Pulido DO PCP: Ric Mccrary MD Status: REG ER Study: Abdomen/Pelvis without Cont Date of Exam: 03/12/18 Exam# [id number] Ordering Dr: Coral Nation MD STUDY: CT ABDOMEN AND PELVIS WITHOUT CONTRAST REASON FOR EXAM: Female, 42 years old. Nausea and vomiting x3 days. Prior colostomy and appendectomy. RADIATION DOSAGE (If Supplied By Facility): CTDIvol = ( 19.10 ) mGy, DLP = ( 978.25 ) mGycm TECHNIQUE: Transaxial images were obtained from the dome of the diaphragm to the symphysis pubis without oral contrast, and without intravenous contrast. Sagittal and coronal images were reconstructed. Individualized dose optimization techniques were used for this CT. COMPARISON: 01/11/2018 FINDINGS: The visualized lung bases are unremarkable. The visualized portions of the heart are within normal limits. Normal liver. Normal gallbladder and extrahepatic biliary system. Normal spleen. Normal pancreas. Severe atherosclerotic disease of the splenic artery, renal arteries and small vessels of the abdomen. Normal bilateral adrenal glands. Normal right kidney. Normal left kidney. Bilateral nonspecific perinephric fat stranding There is a small hiatal hernia. Normal small intestine. Loop ostomy in the left lower quadrant region. There are surgical clips in the region of the appendix consistent with a prior appendectomy. Large right periumbilical fat-containing hernia. There is diffuse atherosclerotic calcification of the abdominal aorta, without a demonstrated aneurysm. Normal inferior vena cava. Normal retroperitoneum. Normal urinary bladder. There is absence of the uterus consistent with a prior hysterectomy. There are diffuse degenerative changes of the visualized lumbar spine. CT/Abdomen/Pelvis without Cont IMPRESSION: No evidence of small or large bowel obstruction. Left lower quadrant ostomy. Large fat-containing periumbilical hernia. Extensive atherosclerotic disease of the small vessels of the abdomen and pelvis. Nonspecific bilateral perinephric fat stranding, stable from prior exam. Electronically Signed: Quincy Pulido DO at 19:08 EDT Tel , Service support , CC: Coral Nation MD; Ric Mccrary MD Tester Operator Helper: Signed POTASSIUM Collected: 03/08/2018 Status: F Source: [place] 11:30 AM [facility] REPOSITORY TYPE CODE TESTS RESULT OUT OF RANGE REFERENCE UNITS LAB L501.5600 3.5-5.1 mmol/L Normal K 5.1 Performed By: #### L501.5600 #### [facility] [address] [place], [address] EMERGENCY DEPARTMENT Observed: 03/06/2018 Status: F Source: [place]AN SUMMARY 5:32 PM [facility] REPOSITORY [facility] Medical Records Department [address] [place] [address] Emergency Department Summary 03/06/18 1542 MR#: [id number] Acct: [id number] Name: KOURTNEY REZA Rep #: [id number] : 1975 42 From: Roberto Mills DO PCP: Ric Mccrary MD Status: REG ER - ER Visit Summary Date of Service: 03/06/18 Chief Complaint: Bleeding from fistula History of Present Illness: The patient is a 42 F who presents with bleeding from her dialysis fistula that began today. Patient states they held pressure on the site for over an hour with no improvement of the bleeding. Patient states she went through several gauze dressings. Patient recently had a cardiac stent placed and was started on Plavix after that. Patient also admits to some abdominal pain and nausea. Patient denies any vomiting. Patient admits to some diarrhea through her colostomy. Patient denies any chest pain or shortness of breath. Patient does admit to a headache and some generalized anxiety. Patient states she did not take her Xanax prior to her dialysis treatment today. Physical Examination: Vital signs are stable. Patient is afebrile. Patient is in no acute distress. Oral mucosa is pink and moist. Neck is supple. Trachea is midline. There is no JVD noted. Heart was regular rate and rhythm. Lungs are clear and equal bilaterally. There is good respiratory effort noted. Abdomen is soft. Bowel sounds are normal. There is diffuse tenderness. There is no rebound or guarding noted. Extremities are intact. There is still bleeding from the fistula site. Gauze dressing was applied. Cranial nerves II through XII are intact. There are no focal motor or sensory deficits noted. The remaining physical exam is within normal limits. Test Results: Acute abdominal x-rays showed a mild right lower quadrant ileus. There is no obstruction or free air. CBC and comprehensive metabolic profile were obtained and were essentially within normal limits insertion of an elevated BUN and creatinine of 46 and 5.73. INR was normal at 1.1. Urinalysis does not show any evidence of urinary tract infection. Emergency Department Course and Treatment: Dressing was applied to the fistula site. The bleeding had stopped while here in the emergency department. Patient felt better on reevaluation. Patient was instructed to follow-up with her primary care physician in 5-7 days. Patient understood and was agreeable with the plan. All questions were answered. Disposition: Discharged home Impression: Bleeding from dialysis fistula This note was generated with [employer] dictation software. It may contain incorrect words, spelling, and punctuation that were not noted in review of the chart prior to signing ED Disposition - Plan for ED Patient: Disposition: Home or Assisted Living Chief Complaint: General Illness Diagnosis: Hemorrhage of arteriovenous fistula Instructions: ED Shunt Dialysis Fistula Bleeding Referrals: Ric Mccrary MD [Primary Care Provider] - What to do if you have Problems For any increased pain, shortness of breath, bleeding, nausea or vomiting, chest pain, or any unexpected problems, contact your Primary Care Provider. Call [facility] ([phone]) or report to the closest Emergency Room. Call 911 if necessary. 03/06/18 1736 <Electronically signed by Roberto Mills DO> Date Roberto Mills DO Cosigner Signature (If Indicated): Date CC: Ric Mccrary MD CBC W/DIFF, AUTOMATED Collected: 03/06/2018 Status: F Source: CIARAN 4:01 PM [facility] REPOSITORY TYPE CODE TESTS RESULT OUT OF RANGE REFERENCE UNITS LAB L100.1000 4.4-11.0 K/mm3 Normal WBC 5.2 LAB L100.1200 4.2-5.4 M/mm3 Low RBC 3.77 LAB L100.1300 12.0-15.0 g/dl Normal HGB 12.1 LAB L100.1400 37-47 % Low HCT 36.2 LAB L100.1500 81-99 fL Normal MCV 96.0 LAB L100.1600 27.0-32.0 pg High MCH 32.1 LAB L100.1700 32-36 g/gl Normal MCHC 33.4 LAB L100.1810 11.6-14.6 % High RDW CV 14.7 LAB L100.1820 35.1-43.9 fl High RDW SD 49.1 LAB L100.1900 150-450 K/mm3 Normal PLT 173 LAB L100.2000 6.2-12.0 fl Normal MPV 8.5 LAB L100.2100 47-70 % Normal NEUT% 63.7 LAB L100.2200 19-41 % Normal LY% 24.9 LAB L100.2300 0-10 % Normal MONO% 5.2 LAB L100.2400 0-5 % High EO% 5.6 LAB L100.2500 0-1 % Normal BASO% 0.4 LAB L100.2550 0.0-0.9 % Normal IM GRAN % 0.200 Result Comment: IG% - Immature Granulocytes (promyelocytes, myelocytes and metamyelocytes) > 1% indicates that a LEFT SHIFT is Present. LAB L100.2620 2.0-7.7 X10 3/uL Normal Absolute Neut 3.3 LAB L100.2720 0.83-4.51 X10 3/ul Normal Absolute Lymph 1.29 Performed By: #### L100.0100 #### [facility] [address] [place], [address] COMPREHENSIVE METABOLIC Collected: 03/06/2018 Status: F Source: [facility] 4:01 PM [facility] REPOSITORY TYPE CODE TESTS RESULT OUT OF RANGE REFERENCE UNITS LAB L501.0100 74-106 mg/dL High GLU 236 Result Comment: Glucose result greater than or equal to 200 mg/dL suggests DIABETES MELLITUS per A.D.A. criteria. Please note revised GLUCOSE reference range effective 2017. LAB L501.1000 7-18 mg/dL High BUN 46 LAB L501.1100 0.55-1.02 mg/dL High CREAT,SERUM 5.73 Result Comment: The validity of the calculated GFR AND GFRAA in patients over 70 years has not been determined. Clinical correlation is essential. LAB L501.1110 >60 mL/min Low EST GFR 9 Result Comment: Non- GFR Calc LAB L501.1115 >60 mL/min Low EST GFR - AA 10 Result Comment: GFR Calc LAB L501.1255 ml/min Normal Estimated CRCL 11.73 LAB L501.1300 10-20 RATIO Low BUN/CRE 8.0 LAB L501.1500 6.4-8. g/dL Normal 2 T PROT 7.4 LAB L501.1800 3.2-5. g/dL Low 0 ALB 2.8 LAB L501.1950 2.2-4. g/dL High 2 GLOB 4.6 LAB L501.2000 0.9-2. RATIO Low 4 A/G 0.6 LAB L501.2200 8.5-10 mg/dL Low .1 CA 7.9 LAB L501.4100 15-37 U/L Normal AST 15 LAB L501.4305 45-117 U/L Normal ALK P 90 LAB L501.4405 13-56 U/L Normal ALT 26 LAB L501.4600 0.20-1 mg/dL Normal .00 T BILI 0.50 LAB L501.5300 136-14 mmol/L Normal 5 NA 140 LAB L501.5600 3.5-5. mmol/L Normal 1 K 3.6 LAB L501.5900 98-107 mmol/L Normal CL 101 LAB L501.6100 21.0-3 mmol/L Normal 2.0 CO2 31.0 LAB L501.6200 5-15 Normal GAP 8 Performed By: #### L500.4050, L501.2450 #### [facility] [address] [place], [place], [address] LIPASE Collected: 03/06/2018 Status: F Source: CIARAN 4:01 PM [facility] REPOSITORY TYPE CODE TESTS RESULT OUT OF RANGE REFERENCE UNITS LAB L501.2450 73-393 U/L Normal LIPASE 309 Performed By: #### L500.4050, L501.2450 #### [facility] [address] [place], [address] PROTHROMBIN TIME W/INR Collected: 03/06/2018 Status: F Source: [place] 4:01 PM [facility] REPOSITORY TYPE CODE TESTS RESULT OUT OF RANGE REFERENCE UNITS LAB L300.4150 11.7-14.9 SECONDS Normal PROTIME 14.6 LAB L300.4200 Normal INR 1.1 Performed By: #### L300.3900, L300.4310 #### [facility] [address] [place], [address] PARTIAL THROMBOPLAST Collected: 03/06/2018 Status: F Source: [place] TIME 4:01 PM [facility] REPOSITORY TYPE CODE TESTS RESULT OUT OF RANGE REFERENCE UNITS LAB L300.4310 24.1-36.2 Seconds Normal PTT 30.3 Performed By: #### L300.3900, L300.4310 #### [facility] [address] [place], [address] URINALYSIS, COMPLETE Collected: 03/06/2018 Status: F Source: [place] 3:55 PM [facility] REPOSITORY Order Comment: Order Date: 03/06/18 Has pt arrived? Y How was Urine Obtained? CLEAN CATCH TYPE CODE TESTS RESULT OUT OF RANGE REFERENCE UNITS LAB L400.3000 Yellow COLOR Normal Straw LAB L400.3050 Clear Normal CLARITY Sl. Cloudy LAB L400.3200 Normal mg/dl High GLUCOSE, UR 250 LAB L400.3300 Negative mg/dL Normal BILIRUBIN URINE Negative LAB L400.3400 Negative mg/dl Normal KETONE UR Negative LAB L400.3465 1.002-1.030 Normal SP.GR. DIPSTX 1.015 LAB L400.3550 5.0 - 8.0 pH UR Normal 9.0 LAB L400.3600 Negative mg/dl High PROT DIPSTX 100 LAB L400.3700 Normal mg/dl Normal UROBILI Normal LAB L400.3750 Negative Normal NITRITE UR Negative LAB L400.3780 Negative /ul High 50 OCCULT BLOOD-UR LAB L400.3800 Negative /ul LEUK Normal ESTERASE Negative LAB L400.4050 0-5 /hpf WBC Normal 0-5 SEEN LAB L400.4100 0-5 /hpf Normal RBC-UA 0-5 SEEN LAB L400.4150 5-10 /hpf SQUAM Normal EPI 0-5 SEEN LAB L400.4300 None Seen /hpf 0 Normal BACTERIA SEEN LAB L400.4350 <or=2+ /hpf 0 Normal MUCUS, URINE SEEN Performed By: #### L400.0001 #### [facility] [address] [place], [address] ACUTE ABDOMEN INC Observed: 03/06/2018 Status: F Source: [place] CHEST 3:39 PM [facility] REPOSITORY [facility] Imaging Services [address] [place] [address] Acute Abdomen Inc Chest MR#: [id number] Acct: [id number] Name: KOURTNEY REZA Rep #: [id number] : 1975 F 42 From: Dylan Daniels MD PCP: Ric Mccrary MD Status: REG ER Study: Acute Abdomen Inc Chest Date of Exam: 03/06/18 Exam# [id number] Ordering Dr: Roberto Mills DO STUDY: X-RAY - ACUTE ABDOMINAL SERIES REASON FOR EXAM: Female, 42 years old. Diffuse abdominal pain TECHNIQUE: Single view of the chest. Supine, and erect view(s) of the abdomen were obtained. 4 views total COMPARISON: None. FINDINGS: The lungs are clear and expanded. Normal size heart. Normal mediastinum and latrell. Normal visualized pulmonary arteries. Normal visualized aortic arch and descending thoracic aorta. Air-fluid levels noted in the right lower quadrant in nondistended small bowel loops consistent with ileus. The soft tissue structures of the abdomen and pelvis are unremarkable. There is a dextroscoliosis in the lumbar spine RAD/Acute Abdomen Inc Chest IMPRESSION: Focal small bowel ileus in the right lower quadrant Electronically Signed: Stan Daniels MD at 16:24 EDT , Service support , CC: Roberto Mills DO; Ric Mccrary MD Tester Operator Helper: Signed 12 LEAD ELECTROCARDIOGRAM Observed: 03/05/2018 Status: F Source: CIARAN 3:54 PM [facility] REPOSITORY [facility] Cardiovascular Services [address] [place] [address] 12 Lead EKG 03/01/18 0502 MR#: [id number] Acct: [id number] Name: KOURTNEY REZA Rep #: [id number] : 1975 42 From: Robert Tompkins MD Attending Dr: Adrienne Lucas MD Status: DIS AIDEN Ordering Dr: Adrienne Lucas MD Date: 03/01/18 Location: ICU Sex: F C Admitted: 02/28/18 Test Reason : AM EKG Blood Pressure : / mmHG Vent. Rate : 079 BPM Atrial Rate : 079 BPM P-R Int : 146 ms QRS Dur : 092 ms QT Int : 402 ms P-R-T Axes : 048 049 165 degrees QTc Int : 460 ms Normal sinus rhythm T wave abnormality, consider lateral ischemia Prolonged QT Abnormal ECG When compared with ECG of 28-FEB-2018 20:27, MANUAL COMPARISON REQUIRED, DATA IS UNCONFIRMED Confirmed by ROBERT TOMPKINS MD ([id number]), web editor SHANIA SOLITARIO ([id number]) on 03/05/2018 3:53:46 PM Referred By: YVONNE Confirmed By:ROBERT TOMPKINS MD 03/05/18 1553 Date Robert Tompkins MD CC: Adrienne Lucas MD; Ric Mccrary MD Signed 12 LEAD ELECTROCARDIOGRAM Observed: 03/05/2018 Status: F Source: CI[place]AN 2:55 PM [facility] REPOSITORY [facility] Cardiovascular Services [address] [place] [address] 12 Lead EKG 02/28/18 1022 MR#: [id number] Acct: [id number] Name: KOURTNEY REZA Rep #: [id number] : 1975 42 From: Robert Tompkins MD Attending Dr: Adrienne Lucas MD Status: DIS AIDEN Ordering Dr: Alex Ravi MD Date: 02/28/18 Location: ICU Sex: F C Admitted: 02/28/18 Test Reason : DIZZNESS Blood Pressure : / mmHG Vent. Rate : 081 BPM Atrial Rate : 081 BPM P-R Int : 132 ms QRS Dur : 090 ms QT Int : 402 ms P-R-T Axes : 031 044 118 degrees QTc Int : 466 ms Normal sinus rhythm T wave abnormality, consider lateral ischemia Prolonged QT Abnormal ECG Confirmed by LEDA BEASLEY, ROBERT ([id number]), web editor SHANIA SOLITARIO ([id number]) on 03/05/2018 2:54:55 PM Referred By: SEVEN/MATTHEW Confirmed By:ROBERT TOMPKINS MD 03/05/18 1454 Date Robert Tompkins MD CC: Alex Ravi MD; Adrienne Lucas MD; Ric Mccrary MD Signed CNOV Observed: 03/05/2018 Status: COMPLETED Source: [place] 11:00 AM [facility] REPOSITORY [facility] KOURTNEY REZA ([id number]) 1975 F TRN Date Time Provider Department 03/05/18 11:00 AM ELBA DOWNS ([facility] During your visit today, we recorded the following information about you: Pulse Respiration Blood pressure Weight 78/minute 12/minute 138/76 88.5 kg Elba Downs APRN.CNP 03/05/2018 2:22 PM Signed HPI/CC: Kourtney Reza is a 42 year old female who presents to the office today for hospital follow-up. She was to [facility] following c/o n/v fever. She actually has hx of CAD and s/p stents of her mid LAD on 02/26/18. She was discharged on 02/27 after having dialysis for 2 consecutive days. After getting home, in the evening, she started having n/v and couldn't keep anything down. She also had a fever of 100.7. She had no chest pain, abdominal pain, cough, SOB, or diarrhea. Labs in the ED showed: Na - 134 K - 6.2 with mild hemolysis -- she had kayexalate -- recheck was 4.0 and 4.9. Creat 5.82 hgb - 12.7 WBC - 9.2 CXray - unremarkable. CT of head - unremarkable. She does see nephrology tomorrow and reports that it is lab day. She goes to dialysis T, , and Sat. Going to be starting cardiac rehab on , , . She was to go to [facility] next week for further eval of colostomy reversal, which will be delayed now d/t being on plavix. She reports that she is a very difficult stick. She has a fistula in the left arm, so only right arm is available for venipuncture. At her last hospital visit, it was the 3rd-4ths nurse 4th try before they obtained access in the finger. She as advised to discuss a possible port access. REVIEW OF SYSTEMS GENERAL: No weight loss, malaise or fevers/chills HEENT: Negative for frequent or significant headaches, No changes in hearing or vision. NECK: Negative for lumps, goiter, pain and significant neck swelling RESPIRATORY: Negative for cough, hemoptysis, wheezing, dyspnea or shortness of breath CARDIOVASCULAR: Negative for chest pain, leg swelling, orthopnea, or palpitations GI: No nausea, vomiting, or diarrhea/constipation. No hematochezia/melena. No heartburn or reflux symptoms. + colostomy. : No history of dysuria, frequency or incontinence NEURO: No history of headaches, syncope, paralysis, seizures or tremors HISTORIES: PAST MEDICAL HISTORY Diagnosis Date - Anemia of chronic disease - Anxiety - Cardiomyopathy (HCC) last echo 08/07 showed normal LVF - CHF (congestive heart failure) ([facility]) - COPD (chronic obstructive pulmonary disease) (HCC) - DM (diabetes mellitus) (HCC) type 2, approx age22 - ESRD on dialysis (HCC) - Hirsutism - Hypertension - Necrotizing fasciitis (HCC) 2009 due to wound of abdomen and MRSA - GABRIEL (obstructive sleep apnea) no CPAP usage - Other congenital anomaly of uterus bicornuate - Proteinuria - PVD (peripheral vascular disease) (HCC) - 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) PAST SURGICAL HISTORY Procedure Laterality Date - APPENDECTOMY 06/2013 - AV FUSE, UPPR ARM, CEPHALIC Left 05-05-15 radial--cephalic - BALLN ANGIOPLASTY,PERC VENOUS Left 07-23-15 AV fistula - DELIVERY ONLY 2008 x 1 - COLONOSCOP W/ OR W/O BRSH SPEC 05/22/2017 Colonoscopy - path - lymphocytic colitis - DANDC, DIAG AND/OR THERAPEUTIC x3 Dilation AND curettage - INS TUNNEL CVC W/O PORT >=5 Right 07-10-15 port acath removed - LAP, SURG ENTEROLYSIS 10/10/13 laparoscopic lysis of adhesions - PAST SURGICAL HISTORY OF 2009 seven surgeries to debride necrotizing fasciitis, at c section site. - PAST SURGICAL HISTORY OF 2008 or 2009 hernia and tummy tuck. - PAST SURGICAL HISTORY OF pda closure at age 2 weeks. - PAST SURGICAL HISTORY OF Fracture repair left ankle, with removal of hardware. - PAST SURGICAL HISTORY OF 1977 Tumor removed from base of neck- benign - PAST SURGICAL HISTORY OF Cyst removed from chest - PAST SURGICAL HISTORY OF Cyst removed from Chest AND Coccyx area - REMOVAL CECILIO CVC W/O PUMP Right 09/09/15 Removal right IJ catheter - TUBAL LIGATION, 12/2008 at time of c/section - VAG HYST,RMV TUBE/OVARY 10/10/13 LAVH/RSO, left salpingectomy FAMILY HISTORY Problem Relation Age of Onset - Arthritis Mother - Asthma Mother - Diabetes Mother - Stroke Mother - Ovarian cancer Mother - Asthma Father - Diabetes Father - Heart Father - Lipids Father - Cervical Cancer Sister - Diabetes Paternal Grandmother - Heart Paternal Grandmother Social History Marital status: Spouse name: Years of education: 14 Number of children: 1 Occupational History 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 naproxen (NAPROSYN) 500 mg tablet Take 1 tablet by mouth twice daily with meals. Take with food. isosorbide mononitrate ER (IMDUR) 60 mg 24 hr tablet Take 1 tablet by mouth once daily. insulin needles, DISPOSABLE, (PEN NEEDLE) 31 gauge x 5/16 ndle Use one needle per dose. 4 x per day. lisinopril (ZESTRIL, PRINIVIL) 20 mg tablet Take 1 tablet by mouth once daily. calcium acetate (PHOSLO) 667 mg capsule Take 1 capsule by mouth three times daily. Per Dr. Martinez sodium bicarbonate 650 mg tablet 650 mg on T, and Sat per Dr. Martinez hydrALAZINE (APRESOLINE) 25 mg tablet Take 1 tablet by mouth three times daily. Per Dr. Martinez famotidine (PEPCID) 20 mg tablet Take 1 tablet by mouth once daily. carvedilol (COREG) 25 mg tablet TAKE 1 TABLET BY MOUTH TWICE DAILY. DO NOT TAKE IF SYSTOLIC IS LESS THAN 90 promethazine (PHENERGAN) 25 mg tablet TAKE 1 TABLET BY MOUTH EVERY 6 HOURS NEEDED FOR NAUSEA/VOMITING. Ostomy Supplies 4 X 4 wafr Holister wafer Reorder #[id number] Ostomy Supplies (ENEMA BAG) [facility] [place] Holister brand #[id number] insulin aspart U-100 (NOVOLOG FLEXPEN U-100 INSULIN) 100 unit/mL inpn 8 units three times a day with meals insulin glargine (LANTUS SOLOSTAR U-100 INSULIN) 100 unit/mL (3 mL) inpn Inject 5 Units subcutaneously daily at bedtime. atorvastatin (LIPITOR) 10 mg tablet Take 1 tablet by mouth once daily. (Patient taking differently: Take 40 mg by mouth once daily. ) aspirin, enteric coated (ASPIRIN, ENTERIC COATED) 81 mg EC tablet Take 1 tablet by mouth once daily. nystatin (MYCOSTATIN) powder Apply 1 application to affected area three times daily. ergocalciferol, vitamin D2, (VITAMIN D) 50,000 unit capsule Take 1 capsule by mouth once each week. carbonyl iron (FEOSOL) 45 mg tab Take 1 tablet by mouth three times daily with meals. diltiazem CR (TIAZAC,TAZTIA XT) 240 mg 24 hr capsule Take 1 capsule by mouth once daily. Lancets lancets Test blood sugar(s) 4-6 times daily. Dx: 250.0. Insulin: Yes blood sugar diagnostic (BLOOD GLUCOSE TEST) test strip Test blood sugar(s) 4-6 times daily. Dx: 250.0. Insulin: Yes Insulin [place], Disposable, (UNIFINE PENTIPS) 29 gauge x 1/2 ndle 1 Each once daily. blood sugar diagnostic (FREESTYLE LITE STRIPS) test strip Test blood sugar(s) 4 times daily. Dx: E11.9. Insulin: Yes Blood-Glucose Meter (FREESTYLE LITE METER) monitoring kit Freestyle LITE Meter Kit - No current facility-administered medications on file prior to visit. ALLERGIES Allergen Reactions - Latex Rash - Nsaids (Non-Steroid* Contraindication-Medical Surgical - Percocet [Oxycodone* Mental Status Change - Reglan [Metoclopram* Vomiting PHYSICAL EXAMINATION: BP 138/76 (BP Site: Right Arm, BP Position: Sitting, BP Cuff Size: Large Adult) Pulse 78 Resp 12 Wt 88.5 kg (195 lb) LMP 09/16/2013 BMI 31.47 kg/m? General appearance: Well appearing, alert, in no acute distress, well-hydrated, well nourished. Skin: Skin color, texture, turgor normal, no suspicious rashes or lesions. Multiple ecchymotic areas on the right arm. Head: Normocephalic, no masses, lesions, tenderness or abnormalities Eyes: Anicteric sclera. Extraocular movements are intact. Neck: Supple, no adenopathy; thyroid symmetric, normal size, no bruits Lungs: Lungs clear to auscultation. No wheezing, rhonchi, rales Heart: RRR without murmur, gallop, or rubs. No ectopy Extremities: No deformities, edema, skin discoloration, clubbing or cyanosis. Good capillary refill. + bruit/+ thrill left forearm. Neuro: Gait normal. ASSESSMENT/PLAN: 1. Hyperkalemia - ICD9: 276.7, ICD10: E87.5 (primary diagnosis) Had kayexalate in the ER. Better on recheck. Reports that she is due for labs at dialysis tomorrow. 2. CAD S/P percutaneous coronary angioplasty - ICD9: 414.01, V45.82, ICD10: I25.10, Z98.61 Continue per cardiology. She is on plavix. 3. Hyperlipidemia, mixed - ICD9: 272.2, ICD10: E78.2 Increase to higher-intensity statin therapy d/t recent dx of CAD. Recheck labs in 2 months. - ATORVASTATIN 40 MG TABLET - LIPID PANEL BASIC - COMP METABOLIC PANEL - HGB A1C 4. Diabetes mellitus due to underlying condition with chronic kidney disease on chronic dialysis, with long-term current use of insulin (HCC) - ICD9: 249.40, 585.9, V45.11, V58.67, ICD10: E08.22, N18.6, Z79.4, Z99.2 - COMP METABOLIC PANEL - HGB A1C 5. Chronic renal failure, stage 5 (HCC) - ICD9: 585.5, ICD10: N18.5 Continue per nephrology. Discussed case with Dr. Mccrary re: possible referral for port. Would like to try to avoid at this time, d/t risk of infection of having another central vascular access. Discussed treatment plan and patient voices understanding. Patient's questions answered appropriately. Medications and potential side effects were discussed and patient voices understanding. Return to the office as scheduled or as needed for worsening/no improvement. Elba Downs APRN.RENUKA Downs APRN.RENUKA 03/05/2018 11:18 AM Signed 1. Labs in 2 months. 2. Recheck in 2 months. Referring Provider: RIC MCCRARY [[id number]] Allergies As of Date: 03/05/2018 Noted Allergy Reaction LATEX 01/20/2006 2 - Rash NSAIDS (NON-STEROIDAL ANTI-INFLAM*05/12/2017 15 - Contraindication- [facility] [place]* PERCOCET (OXYCODONE-ACETAMINOPHEN)10/28/2013 1 - Mental Status Change REGLAN (METOCLOPRAMIDE) 07/03/2013 11 - Vomiting Date Reviewed: 03/05/2018 Reviewed by: Eunice Lopez Cma - Fully Assessed Reason for Visit: Hospital Follow Up [177] Primary Visit Diagnosis:Hyperkalemia [E87.5] Other Visit Diagnoses:CAD S/P percutaneous coronary angioplasty [I25.10, Z98.61] Hyperlipidemia, mixed [E78.2] Diabetes mellitus due to underlying condition with chronic kidney disease on chronic dialysis, with long-term current use of insulin (HCC) [E08.22, N18.6, Z79.4, Z99.2] Chronic renal failure, stage 5 (HCC) [N18.5] Order(s):atorvastatin (LIPITOR) 40 mg tabletTake 1 tablet by mouth once daily.Disp: 30 tabletRfl: 5 LIPID PANEL BASIC [SQLIPB] Order #: [id number] FUTURE COMP METABOLIC PANEL [SQCMP] Order #: [id number] FUTURE HGB A1C [EXAVC1A] Order #: [id number] FUTURE diltiazem CR (TIAZAC,TAZTIA XT) 240 mg 24 hr capsuleTake 1 capsule by mouth once daily.Disp: 90 capsuleRfl: 0 clopidogrel (PLAVIX) 75 mg tabletTake 1 tablet by mouth once daily.Disp: 30 tabletRfl: 0 Prescriptions as of 03/05/2018 Sig: ATORVASTATIN 40 MG TABLET Take 1 tablet by mouth once d* DILTIAZEM CR 240 MG CAP Take 1 capsule by mouth once * FLUOXETINE 40 MG CAPSULE TAKE 1 CAPSULE BY MOUTH EVERY* CYCLOBENZAPRINE 10 MG TABLET Take 1 tablet by mouth three * ISOSORBIDE MONONITRATE ER 60 * Take 1 tablet by mouth once d* PEN NEEDLE, DIABETIC 31 GAUGE* Use one needle per dose. 4 x * LISINOPRIL 20 MG TABLET Take 1 tablet by mouth once d* CALCIUM ACETATE 667 MG CAPSULE Take 1 capsule by mouth three* SODIUM BICARBONATE 650 MG TAB* 650 mg on T, Th and Sat per D* HYDRALAZINE 25 MG TABLET Take 1 tablet by mouth three * FAMOTIDINE 20 MG TABLET Take 1 tablet by mouth once d* CARVEDILOL 25 MG TABLET TAKE 1 TABLET BY MOUTH TWICE * PROMETHAZINE 25 MG TABLET TAKE 1 TABLET BY MOUTH EVERY * OSTOMY SUPPLIES 4 X 4 WAFER Holister wafer Reorder #[id number] OSTOMY SUPPLIES Ostomy bag Holister brand #[id number]* INSULIN ASPART U-100 100 UNI* 8 units three times a day wit* INSULIN GLARGINE (U-100) 100 * Inject 5 Units subcutaneously* ASPIRIN 81 MG TABLET,DELAYED * Take 1 tablet by mouth once d* NYSTATIN 100,000 UNIT/GRAM TO* Apply 1 application to affect* ERGOCALCIFEROL (VITAMIN D2) 5* Take 1 capsule by mouth once * IRON, CARBONYL 45 MG TABLET Take 1 tablet by mouth three * LANCETS Test blood sugar(s) 4- 6 times* BLOOD SUGAR DIAGNOSTIC STRIPS Test blood sugar(s) 4- 6 times* PEN NEEDLE, DIABETIC 29 GAUGE* 1 Each once daily. BLOOD SUGAR DIAGNOSTIC STRIPS Test blood sugar(s) 4 times d* BLOOD-GLUCOSE METER KIT Freestyle LITE Meter Kit - CLOPIDOGREL 75 MG TABLET Take 1 tablet by mouth once d* Problem List As Of Date 03/05/2018 Noted Resolved VULVAL ABSCESS [N76.4] INVALID FOR*10/28/2013 Retinopathy due to secondary diabetes mellitus * Proteinuria [R80.9] Renal insufficiency [N28.9] 03/06/2017 Neuropathy [G62.9] INVALID FOR* HTN (hypertension) [I10] INVALID FOR* Anxiety [F41.9] INVALID FOR* More... Diabetes mellitus [E11.9] INVALID FOR* Cardiomyopathy, nonischemic [I42.8] INVALID FOR* Iron deficiency [E61.1] INVALID FOR* Anemia [D64.9] INVALID FOR* Scar condition and fibrosis of skin: Atrophic D*INVALID FOR* Rosacea [L71.9] INVALID FOR* Other acne [L70.8] INVALID FOR* Telangiectasia [I78.1] INVALID FOR* Irritant dermatitis [L24.9] INVALID FOR* Nodulocystic acne [L70.0] INVALID FOR* Dysfunctional uterine bleeding [N93.8] INVALID FOR* Vitamin D deficiency [E55.9] INVALID FOR* Asthma [J45.909] INVALID FOR* Obesity [E66.9] INVALID FOR* CHF (congestive heart failure) (HCC) [I50.9] INVALID FOR* Chronic renal failure, stage 5 (HCC) [N18.5] INVALID FOR* More... Complication of dialysis access insertion (HCC)*INVALID FOR* GABRIEL (obstructive sleep apnea) [G47.33] INVALID FOR* More... Diarrhea, functional [K59.1] INVALID FOR* More... Bloody stools [K92.1] INVALID FOR* More... C. difficile diarrhea [A04.72] INVALID FOR* More... Adenoma of left adrenal gland [D35.02] INVALID FOR* More... CAD S/P percutaneous coronary angioplasty [I25.*INVALID FOR* Other instructions from your clinician: 1. Labs in 2 months. 2. Recheck in 2 months. Prescriptions ordered this encounter Disp Refills Start End ATORVASTATIN 10 MG TABLET 03/05/2018 03/05/2018 Class: Med Update Route: ORAL Sig: Take 4 tablets by mouth once daily. ATORVASTATIN 40 MG TABLET 30 t* 5 03/05/2018 Route: ORAL Sig: Take 1 tablet by mouth once daily. DILTIAZEM CR 240 MG CAP 90 c* 0 03/05/2018 Route: ORAL Sig: Take 1 capsule by mouth once daily. CLOPIDOGREL 75 MG TABLET 30 t* 0 03/05/2018 Class: Med Update Route: ORAL Sig: Take 1 tablet by mouth once daily. Medications Discontinued During This Encounter naproxen (NAPROSYN) 500 mg tablet 02/13/2018 03/05/2018 Class: Med Update Route: ORAL Sig: Take 1 tablet by mouth twice daily with meals. Take with food. Disc: Course of therapy completed atorvastatin (LIPITOR) 10 mg tablet 11/20/2017 03/05/2018 Class: Med Update Route: ORAL Sig: Take 1 tablet by mouth once daily. Patient taking differently: Take 40 mg by mouth once daily. Disc: Reason for discontinue is not on file. atorvastatin (LIPITOR) 10 mg tablet 03/05/2018 03/05/2018 Class: Med Update Route: ORAL Sig: Take 4 tablets by mouth once daily. Disc: Reason for discontinue is not on file. diltiazem CR (TIAZAC,TAZTIA XT) 240 * 90 c* 0 06/29/2017 03/05/2018 Route: ORAL Sig: Take 1 capsule by mouth once daily. Disc: Reason for discontinue is not on file. Encounter Status:Closed by ELBA DOWNS CNP on 03/05/18 PROGRESS Observed: 03/05/2018 Status: COMPLETED Source: [place] 10:42 AM [facility] [place] REPOSITORY HNO ID: [id number] Author: Elba Daniels) Yareli Service: (none) Author Type: Nurse Practitioner Type: Progress Notes Filed: 03/05/2018 2:22 PM Note Text: HPI/CC: Kourtney Reza is a 42 year old female who presents to the office today for hospital follow-up. She was to [facility] following c/o n/v fever. She actually has hx of CAD and s/p stents of her mid LAD on 02/26/18. She was discharged on 02/27 after having dialysis for 2 consecutive days. After getting home, in the evening, she started having n/v and couldn't keep anything down. She also had a fever of 100.7. She had no chest pain, abdominal pain, cough, SOB, or diarrhea. Labs in the ED showed: Na - 134 K - 6.2 with mild hemolysis -- she had kayexalate -- recheck was 4.0 and 4.9. Creat 5.82 hgb - 12.7 WBC - 9.2 CXray - unremarkable. CT of head - unremarkable. She does see nephrology tomorrow and reports that it is lab day. She goes to dialysis T, , and Sat. Going to be starting cardiac rehab on , , . She was to go to [facility] next week for further eval of colostomy reversal, which will be delayed now d/t being on plavix. She reports that she is a very difficult stick. She has a fistula in the left arm, so only right arm is available for venipuncture. At her last hospital visit, it was the 3rd-4ths nurse 4th try before they obtained access in the finger. She as advised to discuss a possible port access. REVIEW OF SYSTEMS GENERAL: No weight loss, malaise or fevers/chills HEENT: Negative for frequent or significant headaches, No changes in hearing or vision. NECK: Negative for lumps, goiter, pain and significant neck swelling RESPIRATORY: Negative for cough, hemoptysis, wheezing, dyspnea or shortness of breath CARDIOVASCULAR: Negative for chest pain, leg swelling, orthopnea, or palpitations GI: No nausea, vomiting, or diarrhea/constipation. No hematochezia/melena. No heartburn or reflux symptoms. + colostomy. : No history of dysuria, frequency or incontinence NEURO: No history of headaches, syncope, paralysis, seizures or tremors HISTORIES: PAST MEDICAL HISTORY Diagnosis Date - Anemia of chronic disease - Anxiety - Cardiomyopathy (HCC) last echo 08/07 showed normal LVF - CHF (congestive heart failure) (HCC) - COPD (chronic obstructive pulmonary disease) (HCC) - DM (diabetes mellitus) (HCC) type 2, approx age22 - ESRD on dialysis (HCC) - Hirsutism - Hypertension - Necrotizing fasciitis (HCC) 2009 due to wound of abdomen and MRSA - GABRIEL (obstructive sleep apnea) no CPAP usage - Other congenital anomaly of uterus bicornuate - Proteinuria - PVD (peripheral vascular disease) (HCC) - 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) PAST SURGICAL HISTORY Procedure Laterality Date - APPENDECTOMY 06/2013 - AV FUSE, UPPR ARM, CEPHALIC Left 05-05-15 radial--cephalic - BALLN ANGIOPLASTY,PERC VENOUS Left 07-23-15 AV fistula - DELIVERY ONLY 2008 x 1 - COLONOSCOP W/ OR W/O BRSH SPEC 05/22/2017 Colonoscopy - path - lymphocytic colitis - DANDC, DIAG AND/OR THERAPEUTIC x3 Dilation AND curettage - INS TUNNEL CVC W/O PORT >=5 Right 07-10-15 port acath removed - LAP, SURG ENTEROLYSIS 10/10/13 laparoscopic lysis of adhesions - PAST SURGICAL HISTORY OF 2009 seven surgeries to debride necrotizing fasciitis, at c section site. - PAST SURGICAL HISTORY OF 2008 or 2009 hernia and tummy tuck. - PAST SURGICAL HISTORY OF pda closure at age 2 weeks. - PAST SURGICAL HISTORY OF Fracture repair left ankle, with removal of hardware. - PAST SURGICAL HISTORY OF 1977 Tumor removed from base of neck- benign - PAST SURGICAL HISTORY OF Cyst removed from chest - PAST SURGICAL HISTORY OF Cyst removed from Chest AND Coccyx area - REMOVAL CECILIO CVC W/O PUMP Right 09/09/15 Removal right IJ catheter - TUBAL LIGATION, 12/2008 at time of c/section - VAG HYST,RMV TUBE/OVARY 10/10/13 LAVH/RSO, left salpingectomy FAMILY HISTORY Problem Relation Age of Onset - Arthritis Mother - Asthma Mother - Diabetes Mother - Stroke Mother - Ovarian cancer Mother - Asthma Father - Diabetes Father - Heart Father - Lipids Father - Cervical Cancer Sister - Diabetes Paternal Grandmother - Heart Paternal Grandmother Social History Marital status: Spouse name: Years of education: 14 Number of children: 1 Occupational History 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 naproxen (NAPROSYN) 500 mg tablet Take 1 tablet by mouth twice daily with meals. Take with food. isosorbide mononitrate ER (IMDUR) 60 mg 24 hr tablet Take 1 tablet by mouth once daily. insulin needles, DISPOSABLE, (PEN NEEDLE) 31 gauge x 5/16 ndle Use one needle per dose. 4 x per day. lisinopril (ZESTRIL, PRINIVIL) 20 mg tablet Take 1 tablet by mouth once daily. calcium acetate (PHOSLO) 667 mg capsule Take 1 capsule by mouth three times daily. Per Dr. Martinez sodium bicarbonate 650 mg tablet 650 mg on T, Th and Sat per Dr. Martinez hydrALAZINE (APRESOLINE) 25 mg tablet Take 1 tablet by mouth three times daily. Per Dr. Martinez famotidine (PEPCID) 20 mg tablet Take 1 tablet by mouth once daily. carvedilol (COREG) 25 mg tablet TAKE 1 TABLET BY MOUTH TWICE DAILY. DO NOT TAKE IF SYSTOLIC IS LESS THAN 90 promethazine (PHENERGAN) 25 mg tablet TAKE 1 TABLET BY MOUTH EVERY 6 HOURS NEEDED FOR NAUSEA/VOMITING. Ostomy Supplies 4 X 4 wafr Holister wafer Reorder #[id number] Ostomy Supplies (ENEMA BAG) [facility] [place] Holister brand #[id number] insulin aspart U-100 (NOVOLOG FLEXPEN U-100 INSULIN) 100 unit/mL inpn 8 units three times a day with meals insulin glargine (LANTUS SOLOSTAR U-100 INSULIN) 100 unit/mL (3 mL) inpn Inject 5 Units subcutaneously daily at bedtime. atorvastatin (LIPITOR) 10 mg tablet Take 1 tablet by mouth once daily. (Patient taking differently: Take 40 mg by mouth once daily. ) aspirin, enteric coated (ASPIRIN, ENTERIC COATED) 81 mg EC tablet Take 1 tablet by mouth once daily. nystatin (MYCOSTATIN) powder Apply 1 application to affected area three times daily. ergocalciferol, vitamin D2, (VITAMIN D) 50,000 unit capsule Take 1 capsule by mouth once each week. carbonyl iron (FEOSOL) 45 mg tab Take 1 tablet by mouth three times daily with meals. diltiazem CR (TIAZAC,TAZTIA XT) 240 mg 24 hr capsule Take 1 capsule by mouth once daily. Lancets lancets Test blood sugar(s) 4-6 times daily. Dx: 250.0. Insulin: Yes blood sugar diagnostic (BLOOD GLUCOSE TEST) test strip Test blood sugar(s) 4-6 times daily. Dx: 250.0. Insulin: Yes Insulin [place], Disposable, (UNIFINE PENTIPS) 29 gauge x 1/2 ndle 1 Each once daily. blood sugar diagnostic (FREESTYLE LITE STRIPS) test strip Test blood sugar(s) 4 times daily. Dx: E11.9. Insulin: Yes Blood-Glucose Meter (FREESTYLE LITE METER) monitoring kit Freestyle LITE Meter Kit - No current facility-administered medications on file prior to visit. ALLERGIES Allergen Reactions - Latex Rash - Nsaids (Non-Steroid* Contraindication-Medical Surgical - Percocet [Oxycodone* Mental Status Change - Reglan [Metoclopram* Vomiting PHYSICAL EXAMINATION: BP 138/76 (BP Site: Right Arm, BP Position: Sitting, BP Cuff Size: Large Adult) Pulse 78 Resp 12 Wt 88.5 kg (195 lb) LMP 09/16/2013 BMI 31.47 kg/m? General appearance: Well appearing, alert, in no acute distress, well-hydrated, well nourished. Skin: Skin color, texture, turgor normal, no suspicious rashes or lesions. Multiple ecchymotic areas on the right arm. Head: Normocephalic, no masses, lesions, tenderness or abnormalities Eyes: Anicteric sclera. Extraocular movements are intact. Neck: Supple, no adenopathy; thyroid symmetric, normal size, no bruits Lungs: Lungs clear to auscultation. No wheezing, rhonchi, rales Heart: RRR without murmur, gallop, or rubs. No ectopy Extremities: No deformities, edema, skin discoloration, clubbing or cyanosis. Good capillary refill. + bruit/+ thrill left forearm. Neuro: Gait normal. ASSESSMENT/PLAN: 1. Hyperkalemia - ICD9: 276.7, ICD10: E87.5 (primary diagnosis) Had kayexalate in the ER. Better on recheck. Reports that she is due for labs at dialysis tomorrow. 2. CAD S/P percutaneous coronary angioplasty - ICD9: 414.01, V45.82, ICD10: I25.10, Z98.61 Continue per cardiology. She is on plavix. 3. Hyperlipidemia, mixed - ICD9: 272.2, ICD10: E78.2 Increase to higher-intensity statin therapy d/t recent dx of CAD. Recheck labs in 2 months. - ATORVASTATIN 40 MG TABLET - LIPID PANEL BASIC - COMP METABOLIC PANEL - HGB A1C 4. Diabetes mellitus due to underlying condition with chronic kidney disease on chronic dialysis, with long-term current use of insulin (HCC) - ICD9: 249.40, 585.9, V45.11, V58.67, ICD10: E08.22, N18.6, Z79.4, Z99.2 - COMP METABOLIC PANEL - HGB A1C 5. Chronic renal failure, stage 5 (HCC) - ICD9: 585.5, ICD10: N18.5 Continue per nephrology. Discussed case with Dr. Mccrary re: possible referral for port. Would like to try to avoid at this time, d/t risk of infection of having another central vascular access. Discussed treatment plan and patient voices understanding. Patient's questions answered appropriately. Medications and potential side effects were discussed and patient voices understanding. Return to the office as scheduled or as needed for worsening/no improvement. Elba Downs APRN.CARRIER WASHER 12 LEAD ELECTROCARDIOGRAM Observed: 03/02/2018 Status: F Source: [place] 2:47 PM [facility] [place] [facility] Cardiovascular Services [address] [place] [address] 12 Lead EKG 02/26/18 1403 MR#: [id number] Acct: [id number] Name: KOURTNEY REZA Rep #: [id number] : 1975 42 From: Kaitlynn Green MD Attending Dr: Adrienne Lucas MD Status: DIS AIDEN Ordering Dr: Wm Mills MD Date: 02/28/18 Location: ICU Sex: F C Admitted: 02/28/18 Test Reason : SP PCI Blood Pressure : / mmHG Vent. Rate : 075 BPM Atrial Rate : 075 BPM P-R Int : 164 ms QRS Dur : 104 ms QT Int : 432 ms P-R-T Axes : 044 047 105 degrees QTc Int : 482 ms Normal sinus rhythm Nonspecific T wave abnormality Prolonged QT Abnormal ECG Confirmed by KAITLYNN GREEN MD ([id number]), web editor SHANIA SOLITARIO ([id number]) on 03/02/2018 2:47:07 PM Referred By: YASMINE Confirmed By:KAITLYNN GREEN MD 03/02/18 1447 Date Kaitlynn Green MD CC: Wm Mills MD; Adrienne Lucas MD; Ric Mccrary MD Signed 12 LEAD ELECTROCARDIOGRAM Observed: 03/02/2018 Status: F Source: [place] 2:25 PM [facility] [place] [facility] Cardiovascular Services [address] [place] [id number] 12 Lead EKG 02/27/18 0531 MR#: [id number] Acct: [id number] Name: KOURTNEY REZA Rep #: [id number] : 1975 42 From: Kaitlynn Green MD Attending Dr: Francois Soler Status: DIS IN Ordering Dr: Wm Underwood MD Date: 02/27/18 Location: ICU Sex: F C Admitted: 02/24/18 Test Reason : AM EKG Blood Pressure : / mmHG Vent. Rate : 075 BPM Atrial Rate : 075 BPM P-R Int : 146 ms QRS Dur : 094 ms QT Int : 418 ms P-R-T Axes : 039 046 141 degrees QTc Int : 466 ms Normal sinus rhythm Poor R wave progression Left ventricular hypertrophy Nonspecific T wave abnormality Prolonged QT Abnormal ECG Confirmed by KAITLYNN GREEN MD ([id number]), web editor SHANIA SOLITARIO ([id number]) on 03/02/2018 2:25:27 PM Referred By: YASMINE Confirmed By:KAITLYNN GREEN MD 03/02/18 1425 Date Kaitlynn Green MD CC: Wm Underwood MD; Francois Soler; Ric Mccrary MD Signed DISCHARGE SUMMARY Observed: 03/01/2018 Status: F Source: [place] 3:25 PM [facility] [place] RE[facility]ITORY [facility] Medical Records Department [address] [place] [address] Discharge Summary 03/01/18 1143 MR#: [id number] Acct: [id number] Name: KOURTNEY REZA Rep #: [id number] : 1975 42 From: Adrienne Lucas MD PCP: Ric Mccrary MD Status: DIS AIDEN Y Location: ICU ICU- Discharge Date and Diagnosis Date of Admission: 02/28/18 Date of Discharge: 03/01/18 - Primary Discharge Diagnosis Active and Suspected Problems (Last Updated 02/27/18 @ 10:29 by Pricila Olson) Nausea AND vomiting (Acute) - Secondary Discharge Diagnosis Chronic Problems (Last Updated 02/27/18 @ 10:29 by Pricila Olson) Stented coronary artery (Chronic 02/26/18) FFR of LAD 0.82; VIKY of mid LAD with 2.5 X 24 mm Promus Synergy, OM <50% stenosis per Dr. 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 Underwood @ [facility] ESRD (end stage renal disease) on dialysis (Chronic) Decubitus ulcer, stage III (Chronic) Anemia, chronic disease (Chronic) Pilonidal cyst with abscess (Chronic) GABRIEL (obstructive sleep apnea) (Chronic) Depression (Chronic) Anxiety (Chronic) HTN (hypertension) (Chronic) Nonischemic cardiomyopathy (Chronic) With ejection fraction 45 - 50%; with angiographically normal coronary arteries 05/2013; follows up with Dr. Underwood Diabetes mellitus type 1 (Chronic) Hyperlipidemia (Chronic) Obesity (BMI 30.0-34.9) (Chronic) Gastroparesis (Chronic) Hospital Course and Treatment nephrology- Dr Martinez Operations: None Procedures: None Summary of Care Provided: The patient is a 42 year old F extensive past medical history of CAD status post stents done on 02/26/2018, ESRD on hemodialysis Saturdays, anemia of chronic disease, nonischemic cardiomyopathy with EF of 45-50%, diabetes, hypertension, hyperlipidemia, gastroparesis. She was admitted via the ED on 02/28/2018 with complaint of nausea and vomiting of 1 day duration. Patient was recently admitted to the hospital And managed for unstable angina. She underwent cardiac catheterization was found to have single vessel CAD of the mid LAD was status post PTCA and drug-eluting stents to mid LAD. She was discharged on 02/27/2018 after having dialysis for 2 consecutive days. Patient states when she got home, in the evening she started having nausea and vomiting and could not keep anything down. She had an associated fever of 100.7 Fahrenheit. 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 She had no associated chest pain, abdominal pain, cough or shortness of breath no diarrhea. She therefore came into the ED. Vitals in the ED showed temperature of 97.2 Fahrenheit, blood pressure of 153/77, pulse rate of 83 respiratory rate of 26. Labs done in the ED showed sodium of 134 and potassium of 6.2 with mild hemolysis, creatinine of 5.82, CBC showed hemoglobin of 12.7 and WBC of 9.2. Chest x-ray was unremarkable and brain CT was also unremarkable. She was admitted to be managed for nausea and vomiting of unclear etiology. She had had dialysis for 2 days in a row prior to discharge, and got only a few pounds below her dry weight upon discharge. Symptoms had resolved at time of review. She was admitted and managed for nausea and vomiting, with unclear etiology. Symptoms had resolved at time of review. She remained stable and had a mild migraine headache which resolved with one tablet of [place]. Nephrology was consulted o/a of patient being on dialysis. She had dialysis on 03/01/18 and was discharged home on 03/01/18 after dialysis. She is to follow-up with her PCP and nephrology as well as cardiology. Patient seen and examined prior to discharge. She had no complaints and felt well. Nausea and vomiting had occurred. She denied any fever chills, any cough or chest pain, any shortness of breath, no abdominal pain, any diarrhea or vomiting. 12 point review of systems otherwise negative. Labs and vitals reviewed. o/e: Vital Signs Height 5 ft 6 in Weight: 194 lb 14.218 oz Weight in Pounds 194.9 lbs Pulse Ox 99 General: Alert, Oriented x3, Cooperative, No apparent distress HEENT: Atraumatic, PERRLA, EOMI, Normocephalic Oral: Moist Mucosa Neck: Supple, No JVD, Negative Carotid Bruits Lungs: Clear to auscultation, Normal air movement, No rhonchi, No wheeze, No rales Cardiovascular: Regular rate, Regular Rhythm, Normal S1, Normal S2, No murmurs Abdomen: Bowel Sounds Present, Soft, Non Tender, Non-Distended, No Hepato-splenomegaly, Passing Flatus, - - colostomy bag contains loose stool Extremities: No clubbing, No cyanosis, No edema, Capillary Refill Less than 3 Seconds. LUE AV fistula in forearm with good thrill Skin: No rashes, No breakdown Musculoskeletal: No Tenderness to Palpation of Joints or Extremities Lymphatic: No Cervical, Supraclavicular, or Inguinal Adenopathy Neurological: Cranial nerves II-XII grossly intact, Motor Exam 5/5 strength throughout Psych/Mental Status: Normal Affect, Appropriate, Alert and oriented to time, place, person, mood and affect Home medications reviewed and reconciled prior to discharge. Plan as stated above. [] Discharge Diet: Renal Diet Discharge Activity: Return to Normal Activity Weight Bearing Status: Weight bearing as tolerated Call your doctor if you observe: Shortness of breath, Dizziness, Swelling in the ankles Home Medications: Medications to take at Discharge Aspirin [Aspirin, Baby] 81 mg PO DAILY@0800 01/26/16 Calcium Acetate [Phoslo Gel Cap] 1,334 mg PO TIDCM 01/26/16 Ergocalciferol [Vitamin D] 50,000 unit PO FR 01/26/16 Insulin Aspart [Novolog Flexpen] 10 units SC TIDCM 01/26/16 Insulin Glargine,Hum.rec.anlog [Lantus] 5 unit SQ QHS 01/09/17 proMETHazine tablet [Phenergan tablet] 25 mg PO Q6H PRN PRN #10 tablet 03/06/17 Lisinopril 20 mg PO DAILY 03/29/17 Sodium Bicarbonate 650 mg PO TUTHSA 03/29/17 Carvedilol [Coreg (Beta Lewis)] 25 mg PO BID 06/17/17 Fluoxetine HCl 40 mg PO DAILY 09/02/17 ALPRAZolam [Xanax] 0.5 mg PO DAILY 11/21/17 Ondansetron [Zofran Odt] 4 mg PO Q8H PRN PRN #10 tablet 01/27/18 Dicyclomine HCl [Bentyl] 20 mg PO 4X/DAY PRN PRN 02/08/18 Omeprazole Magnesium [Prilosec Otc] 20 mg PO DAILY 02/08/18 Clopidogrel Bisulfate [Plavix] 75 mg PO DAILY #90 tab 02/27/18 Isosorbide Mononitrate [Isosorbide Mononitrate ER] 60 mg PO DAILY 02/28/18 Atorvastatin Calcium 40 mg PO QHS #30 tab 03/01/18 Following Prescrptions Were Given to Patient: Atorvastatin Calcium 40 mg PO QHS #30 tab Primary Care Physician: Ric Mccrary MD [Primary Care Provider] - Please follow up with your Primary Care Physician in: one week Please Follow Up With: Wm Underwood MD When: 1-2 weeks Please Follow Up With: Chey Martinez MD When: 1 week Disposition: Home Minutes spent on discharge:: 35 Patient Condition:: Stable Medical Necessity - Tobacco Use Smoking Status: Former smoker Meaningful Use Info Meaningful Use Diagnoses (Choose all that apply): None applicable Code Visit Inpatient E AND M: 45359 Disch Hosp 03/01/18 1525 <Electronically signed by Adrienne Lucas MD> Date Adrienne Lucas MD Cosigner Signature (if applicable): Date CC: Adrienne Lucas MD; Ric Mccrary MD Signed BEDSIDE GLUCOSE Collected: 03/01/2018 Status: F Source: [place] 12:26 PM [facility] [place] REPOSITORY TYPE CODE TESTS RESULT OUT OF REFERENCE UNITS RANGE LAB L501.080 70-110 mg/dL High BEDSIDE GLU 159 Result Comment: MANAGEMENT OF PATIENT CARE PER NURSING PROTOCOL Performed By: #### L501.080 #### [facility] Point of Care [address] [place] [address] DISCHARGE INSTRUCTION Observed: 03/01/2018 Status: F Source: [place] 11:43 AM [facility] [place] REPOSITORY [facility] Medical Records Department [address] [place] [address] Instructions for Home/Discharge Instructions 03/01/18 1141 MR#: [id number] Acct: [id number] Name: KOURTNEY REZA Rep #: [id number] : 1975 42 From: Adrienne Lucas MD PCP: Ric Mccrary MD Status: ADM AIDEN - Discharge Diagnoses Current Active Problems: Current Active and Chronic Problems (Last Updated 02/27/18 @ 10:29 by Pricila Olson) Nausea AND vomiting (Acute) You will use the following diet at home:: Cardiac, Renal (restricted protein/sodium) Your food should be the consistency of: Regular Your liquids should be the consistency of: Regular/Thin Discharge Activity: Return to Normal Activity Weight Bearing Status: Weight bearing as tolerated Call your doctor if you observe: Shortness of breath, Dizziness, Swelling in the ankles Allergies/Adverse Reactions: Allergies latex Allergy (Verified 02/28/18 10:07) Rash levofloxacin [From Levaquin] Adverse Reaction (Verified 02/28/18 10:07) PT CAN'T REMEMBER PT CAN'T REMEMBER metoclopramide HCl [From Reglan] Adverse Reaction (Verified 02/28/18 10:07) Nausea NSAIDS (Non-Steroidal Anti-Inflamma Adverse Reaction (Verified 02/28/18 10:07) kidney function oxycodone HCl [From Percocet] Adverse Reaction (Verified 02/28/18 10:07) HALLUCINATIONS Medications to take at Discharge Aspirin [Aspirin, Baby] 81 mg PO DAILY@0800 01/26/16 Calcium Acetate [Phoslo Gel Cap] 1,334 mg PO TIDCM 01/26/16 Ergocalciferol [Vitamin D] 50,000 unit PO FR 01/26/16 Insulin Aspart [Novolog Flexpen] 10 units SC TIDCM 01/26/16 Insulin Glargine,Hum.rec.anlog [Lantus] 5 unit SQ QHS 01/09/17 proMETHazine tablet [Phenergan tablet] 25 mg PO Q6H PRN PRN #10 tablet 03/06/17 Lisinopril 20 mg PO DAILY 03/29/17 Sodium Bicarbonate 650 mg PO TUTHSA 03/29/17 Carvedilol [Coreg (Beta Lewis)] 25 mg PO BID 06/17/17 Fluoxetine HCl 40 mg PO DAILY 09/02/17 ALPRAZolam [Xanax] 0.5 mg PO DAILY 11/21/17 Ondansetron [Zofran Odt] 4 mg PO Q8H PRN PRN #10 tablet 01/27/18 Dicyclomine HCl [Bentyl] 20 mg PO 4X/DAY PRN PRN 02/08/18 Omeprazole Magnesium [Prilosec Otc] 20 mg PO DAILY 02/08/18 Clopidogrel Bisulfate [Plavix] 75 mg PO DAILY #90 tab 02/27/18 Isosorbide Mononitrate [Isosorbide Mononitrate ER] 60 mg PO DAILY 02/28/18 Atorvastatin Calcium 40 mg PO QHS #30 tab 03/01/18 The following prescriptions were given: Atorvastatin Calcium 40 mg PO QHS #30 tab Primary Care Physician: Ric Mccrary MD [Primary Care Provider] - Please follow up with your Primary Care Physician in: one week Test Results: Test results from this visit will be discussed in further detail at your follow-up appointment, if applicable. Please Follow Up With: Wm Underwood MD When: 1-2 weeks Please Follow Up With: Chey Martinez MD When: 1 week Proposed Discharge Date: 03/01/18 03/01/18 1143 <Electronically signed by Adrienne Lucas MD> Date Adrienne Lucas MD CC: Ivania Martinez M.D.; Ric Mccrary MD EMERGENCY DEPARTMENT Observed: 03/01/2018 Status: F Source: [place] SUMMARY 9:38 AM [facility] [place] REPOSITORY [facility] Medical Records Department [address] [place] [address] Emergency Department Summary 02/28/18 1246 MR#: [id number] Acct: [id number] Name: KOURTNEY REZA Rep #: [id number] : 1975 42 From: Wm Mills MD PCP: Ric Mccrary MD Status: ADM AIDEN - ER Visit Summary Date of Service: 02/28/18 Chief Complaint: Dizzy History of Present Illness: The patient is a 42 F that presents from home for dizziness. She had a cardiac catheterization with stent placement by Dr. Underwood 2 days ago. She did fine afterwards. She had dialysis in the hospital yesterday and 2 days ago. She was discharged home yesterday. When she got home, she felt dizzy. She describes both a spinning sensation and lightheadedness. She also feels unstable on her feet. This is a new symptom for her. She reports some associated nausea and vomiting and a headache. No vision changes, speech changes, facial droop, or focal weakness. Patient has a history of coronary disease, diabetes, hypertension, hyperlipidemia, end-stage renal disease, hyperkalemia, pulmonary edema, C. difficile, obstructive sleep apnea, cardiomyopathy, gastroparesis, and others. Physical Examination: Blood pressure unremarkable. Vital signs unremarkable. Afebrile. Patient appears uncomfortable but not in any acute distress. Head and neck atraumatic. Neck nontender. Heart regular. Lungs clear. Abdomen shows mild epigastric tenderness, but no guarding or rebound. Left upper extremity fistula is normal. Extremities atraumatic and unremarkable. Cranial nerves grossly unremarkable. No focal weakness or numbness. NIH is 0. Test Results: EKG showed sinus rhythm with stable T-wave changes. No sign of acute ischemia or infarction. CBC normal except for a stable thrombocytopenia. Potassium 6.2 and glucose 197. BUN and creatinine reflect her chronic end-stage renal disease. Liver panel and lipase unremarkable. Coags and troponin normal. Chest x-ray showed no acute process. CT head showed no acute process. Emergency Department Course and Treatment: Patient was placed on a monitor. She received fluids, Zofran, and pain medicine. She felt better afterwards. She was treated with calcium, Kayexalate, D50, and insulin for her hyperkalemia. Patient was discussed with Dr. Underwood. He had no further recommendations. He did not feel that cardiac consultation was indicated. I spoke with the hospitalist who will admit for further care. Patient is stable on my reevaluation. Treatment Plan: As above Disposition: Admission Impression: 1. Dizziness 2. Hyperkalemia This note was generated with [employer] dictation software. It may contain incorrect words, spelling, and punctuation that were not noted in review of the chart prior to signing ED Disposition - Plan for ED Patient: Chief Complaint: Dizziness Referrals: Ric Mccrary MD [Primary Care Provider] - What to do if you have Problems For any increased pain, shortness of breath, bleeding, nausea or vomiting, chest pain, or any unexpected problems, contact your Primary Care Provider. Call [facility] ([phone]) or report to the closest Emergency Room. Call 911 if necessary. 03/01/1838 <Electronically signed by Wm Mills MD> Date Wm Mills MD Cosigner Signature (If Indicated): Date CC: Ric Mccrary MD BEDSIDE GLUCOSE Collected: 03/01/2018 Status: F Source: [place] 7:56 AM [facility] [place] REPOSITORY TYPE CODE TESTS RESULT OUT OF REFERENCE UNITS RANGE LAB L501.080 70-110 mg/dL High BEDSIDE GLU 170 Result Comment: MANAGEMENT OF PATIENT CARE PER NURSING PROTOCOL Performed By: #### L501.080 #### [facility] Point of Care [address] [place] [address] CBC W/DIFF, AUTOMATED Collected: 03/01/2018 Status: F Source: [place] 2:37 AM [facility] [place] REPOSITORY TYPE CODE TESTS RESULT OUT OF RANGE REFERENCE UNITS LAB L100.1000 4.4-11.0 K/mm3 Normal WBC 6.5 LAB L100.1200 4.2-5.4 M/mm3 Low RBC 3.61 LAB L100.1300 12.0-15.0 g/dl Low HGB 11.8 LAB L100.1400 37-47 % Low HCT 36.6 LAB L100.1500 81-99 fL High MCV 101.4 LAB L100.1600 27.0-32.0 pg High MCH 32.7 LAB L100.1700 32-36 g/gl Normal MCHC 32.2 LAB L100.1810 11.6-14.6 % High RDW CV 15.5 LAB L100.1820 35.1-43.9 fl High RDW SD 56.5 LAB L100.1900 150-450 K/mm3 Low PLT 114 LAB L100.2000 6.2-12.0 fl Normal MPV 8.8 LAB L100.2100 47-70 % Normal NEUT% 66.1 LAB L100.2200 19-41 % Normal LY% 21.1 LAB L100.2300 0-10 % Normal MONO% 6.0 LAB L100.2400 0-5 % High EO% 6.2 LAB L100.2500 0-1 % Normal BASO% 0.3 LAB L100.2550 0.0-0.9 % Normal IM GRAN % 0.300 Result Comment: IG% - Immature Granulocytes (promyelocytes, myelocytes and metamyelocytes) > 1% indicates that a LEFT SHIFT is Present. LAB L100.2620 2.0-7.7 X10 3/uL Normal Absolute Neut 4.3 LAB L100.2720 0.83-4.51 X10 3/ul Normal Absolute Lymph 1.37 Performed By: #### L100.0100 #### [facility] [place], [address] RENAL PROFILE Collected: 03/01/2018 Status: F Source: [place] 2:37 AM [facility] [place] REPOSITORY TYPE CODE TESTS RESULT OUT OF RANGE REFERENCE UNITS LAB L501.0100 74-106 mg/dL High GLU 201 Result Comment: Glucose result greater than or equal to 200 mg/dL suggests DIABETES MELLITUS per A.D.A. criteria. Please note revised GLUCOSE reference range effective 2017. LAB L501.1000 7-18 mg/dL High BUN 45 LAB L501.1100 0.55-1.02 mg/dL High CREAT,SERUM 6.85 Result Comment: The validity of the calculated GFR AND GFRAA in patients over 70 years has not been determined. Clinical correlation is essential. LAB L501.1110 >60 mL/min Low EST GFR 7 Result Comment: Non- GFR Calc LAB L501.1115 >60 mL/min Low EST GFR - AA 8 Result Comment: GFR Calc LAB L501.1255 ml/min Normal Estimated CRCL 9.81 LAB L501.1300 10-20 RATIO Low BUN/CRE 6.6 LAB L501.1800 3.2-5.0 g/dL Low ALB 2.9 LAB L501.2200 8.5-10. mg/dL Normal 1 CA 8.8 LAB L501.2300 2.5-4.9 mg/dL High PHOS 6.6 LAB L501.5300 136-145 mmol/L Normal NA 139 LAB L501.5600 3.5-5.1 mmol/L Normal K 4.9 LAB L501.5900 98-107 mmol/L Normal CL 102 LAB L501.6100 21.0-32 mmol/L Normal .0 CO2 24.0 Performed By: #### L500.3600 #### [facility] [address] [place], [place], [address] TROPONIN-I Collected: 03/01/2018 Status: F Source: [place] 2:37 AM [facility] [place] REPOSITORY Order Comment: 'TROP' Serial specimen #1, #2 or #3: 3 'TROP' Serial specimen #1, #2, #3, or #4: 3 TYPE CODE TESTS RESULT OUT OF RANGE REFERENCE UNITS LAB L501.4010 <0.045 ng/mL Normal 0.020 TROPONIN-I Result Comment: TROPONIN-I EXPECTED VALUES <0.045 Negative 0.045 - 0.590 Consistent with Cardiac Damage > OR = 0.600 Critical Value Not every elevated troponin is indicative of [place]. These values should be used with clinical judgement in examining the patient's clinical picture for diagnosis. To establish a diagnosis of [place] versus myocardial injury, there must be a demonstrated rise and/or fall in the troponin values, in addition to ischemic symptoms, EKG changes, new regional wall motion abnormality, and/or angiographical evidence. PLEASE NOTE: REFERENCE RANGES EDITED 17 Performed By: #### L501.4010 #### [facility] [address] [place], [address] TROPONIN-I Collected: 02/28/2018 Status: F Source: [place] 11:50 PM [facility] [place] REPOSITORY Order Comment: 'TROP' Serial specimen #1, #2 or #3: 1 TYPE CODE TESTS RESULT OUT OF RANGE REFERENCE UNITS LAB L501.4010 <0.045 ng/mL Normal 0.018 TROPONIN-I Result Comment: TROPONIN-I EXPECTED VALUES <0.045 Negative 0.045 - 0.590 Consistent with Cardiac Damage > OR = 0.600 Critical Value Not every elevated troponin is indicative of [place]. These values should be used with clinical judgement in examining the patient's clinical picture for diagnosis. To establish a diagnosis of [place] versus myocardial injury, there must be a demonstrated rise and/or fall in the troponin values, in addition to ischemic symptoms, EKG changes, new regional wall motion abnormality, and/or angiographical evidence. PLEASE NOTE: REFERENCE RANGES EDITED 17 Performed By: #### L501.4010 #### [facility] [address] [place], [address] BEDSIDE GLUCOSE Collected: 02/28/2018 Status: F Source: [place] 9:11 PM [facility] [place] REPOSITORY TYPE CODE TESTS RESULT OUT OF RANGE REFERENCE UNITS LAB L501.080 70-110 mg/dL Normal BEDSIDE GLU 86 Result Comment: MANAGEMENT OF PATIENT CARE PER NURSING PROTOCOL Performed By: #### L501.080 #### [facility] Point of Care [address] [facility] [address] D-DIMER QUANTITATIVE Collected: 02/28/2018 Status: F Source: [place] (DVT/PE) 8:45 PM [facility] [place] REPOSITORY TYPE CODE TESTS RESULT OUT OF RANGE REFERENCE UNITS LAB L300.8000 0.27-0.49 FEU/ug/m Normal D-DIMER 0.34 QUANT Result Comment: NORMAL D-Dimer level (<0.50) indicates no DVT or PE. Performed By: #### L300.8000 #### [facility] [address] [place], [address] TROPONIN-I Collected: 02/28/2018 Status: F Source: [place] 8:45 PM [facility] [place] REPOSITORY Order Comment: 'TROP' Serial specimen #1, #2 or #3: 2 TYPE CODE TESTS RESULT OUT OF RANGE REFERENCE UNITS LAB L501.4010 <0.045 ng/mL Normal 0.022 TROPONIN-I Result Comment: TROPONIN-I EXPECTED VALUES <0.045 Negative 0.045 - 0.590 Consistent with Cardiac Damage > OR = 0.600 Critical Value Not every elevated troponin is indicative of [place]. These values should be used with clinical judgement in examining the patient's clinical picture for diagnosis. To establish a diagnosis of [place] versus myocardial injury, there must be a demonstrated rise and/or fall in the troponin values, in addition to ischemic symptoms, EKG changes, new regional wall motion abnormality, and/or angiographical evidence. PLEASE NOTE: REFERENCE RANGES EDITED 17 Performed By: #### L501.4010 #### [facility] [address] [place], [address] CONSULTATION Observed: 02/28/2018 Status: F Source: [place] 6:24 PM [facility] [place] REPOSITORY [facility] Medical Records Department [address] [facility] [place] [address] Consultation 02/28/18 1821 MR#: [id number] Acct: [id number] Name: KOURTNEY REZA Rep #: [id number] : 1975 42 From: Chey Martinez MD PCP: Ric Mccrary MD Status: ADM AIDEN Y Location: ICU ICU09-1 Problem List (1) ESRD (end stage renal disease) on dialysis Status: Chronic Consultation - Renal 02/28/18 PCP/ Referring MD: Requesting physician: Dr Lucas Primary care physician: Ric Mccrary Reason for Consultation:: ESRD - History of Present Illness History of Present Illness: The patient is a 42 year old F well known to us. ESRD on HD TTS schedule. was recently in hospital with chest pain, breathing issues. ended up having a stent placed by cardiology. She went home, started feeling sick and came back with nausea vomitings and abdominal discomfort. was found to be hyperkalemic. - Allergies Allergies: Allergies latex Allergy (Verified 02/28/18 10:07) Rash levofloxacin [From Levaquin] Adverse Reaction (Verified 02/28/18 10:07) PT CAN'T REMEMBER PT CAN'T REMEMBER metoclopramide HCl [From Reglan] Adverse Reaction (Verified 02/28/18 10:07) Nausea NSAIDS (Non-Steroidal Anti-Inflamma Adverse Reaction (Verified 02/28/18 10:07) kidney function oxycodone HCl [From Percocet] Adverse Reaction (Verified 02/28/18 10:07) HALLUCINATIONS - Current Medications Current Medications: Current Medications Acetaminophen (Tylenol) 650 mg PO Q6H PRN PRN PRN Reason: PAIN Last Admin: 02/28/18 15:32 Dose: 650 mg Alprazolam (Xanax) 0.5 mg PO DAILY [facility] Aspirin (Aspirin, Baby) 81 mg PO DAILY@0800 [facility] Atorvastatin Calcium (Lipitor) 20 mg PO QHS [facility] Calcium Acetate (Phoslo Gel Cap) 1,334 mg PO TIDCM [facility] Last Admin: 02/28/18 17:58 Dose: 1,334 mg Carvedilol (Coreg) 25 mg PO BID [facility] Clopidogrel Bisulfate (Plavix) 75 mg PO DAILY [facility] Dicyclomine HCl (Bentyl) 20 mg PO 4X/DAY PRN PRN PRN Reason: distress Ergocalciferol (Vitamin D) 50,000 unit PO Fr@1000 [facility] Fluoxetine HCl (Prozac) 40 mg PO DAILY [facility] Heparin Sodium (Porcine) (Heparin Na) 5,000 unit SC Q8 [facility] Sodium Chloride () 250 mls @ 15 mls/hr IV .[id number] PRN PRN Reason: SALINE FLUSH Insulin Glargine (Lantus (Bkc)) 5 units SC QHS [facility] Insulin Human Lispro (Humalog Kwikpen (Bkc)) 10 unit SC TIDCM [facility] Last Admin: 02/28/18 17:58 Dose: Not Given Isosorbide Mononitrate (Imdur) 60 mg PO DAILY [facility] Magnesium Hydroxide (Milk Of Magnesia) 30 ml PO DAILY PRN PRN PRN Reason: Constipation Ondansetron HCl (Zofran Odt) 4 mg PO Q8H PRN PRN PRN Reason: NAUSEA Ondansetron HCl (Zofran) 4 mg IV Q8H PRN PRN PRN Reason: NAUSEA/VOMITING Last Admin: 02/28/18 15:32 Dose: 4 mg Pantoprazole Sodium (Protonix) 20 mg PO DAILY [facility] Promethazine HCl (Phenergan Tablet) 25 mg PO Q6H PRN PRN PRN Reason: NAUSEA Sodium Bicarbonate (Sodium Bicarbonate) 650 mg PO TUTHSA [facility] Sodium Chloride () 5 - 30 ml IV UD PRN PRN Reason: SALINE FLUSH Last Admin: 02/28/18 15:31 Dose: 20 ml - Past Medical History Past Medical History (Chronic Problems): Chronic Problems (Last Updated 02/27/18 @ 10:29 by Pricila Olson) Stented coronary artery (Chronic 02/26/18) FFR of LAD 0.82; VIKY of mid LAD with 2.5 X 24 mm Promus Synergy, OM <50% stenosis per Dr. 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 Underwood @ [facility] ESRD (end stage renal disease) on dialysis (Chronic) Decubitus ulcer, stage III (Chronic) Anemia, chronic disease (Chronic) Pilonidal cyst with abscess (Chronic) GABRIEL (obstructive sleep apnea) (Chronic) Depression (Chronic) Anxiety (Chronic) HTN (hypertension) (Chronic) Nonischemic cardiomyopathy (Chronic) With ejection fraction 45 - 50%; with angiographically normal coronary arteries 05/2013; follows up with Dr. Underwood Diabetes mellitus type 1 (Chronic) Hyperlipidemia (Chronic) Obesity (BMI 30.0-34.9) (Chronic) Gastroparesis (Chronic) - Past Surgical History Surgical History: appendectomy, hysterectomy - and BSO, - - c-sections, L breast I+D for abscess, fistula placement LUE, L ankle surgery, appendectomy, PDA repair. Excision pilonidal cyst ulcer about 4 years ago. Colostomy placed due to rectal abscess/wound, patent ductus repair - Social History Smoking Status: Former smoker - Family History Maternal History Items: Cancer, COPD, Diabetes, Hypertension, Renal Disease, Stroke Paternal History Items: Diabetes Sibling History Items: Cancer, Diabetes Review of Systems Constitutional: Denies: Chills, Fever, Weight Change HEENT: Denies: Head Aches, Sinus Congestion, Sinus Drainage Cardiovascular: Denies: Chest Pain, Palpitations Respiratory: Denies: Cough, Shortness of breath at rest, Sputum production Gastrointestinal: Denies: Abdominal Pain, Nausea, Vomiting Genitourinary: Denies: Dysuria Musculoskeletal: Denies: Joint Pain, Joint Tenderness Skin: Denies: Rash, Wounds Neurological: Denies: Numbness, Tingling, Focal weakness Psychiatric: Denies: Anxiety, Depression, Homicidal Ideations, Suicidal Ideations Hematologic/ Lymphatic: Denies: Easy Bruising, Easy Bleeding Patient Problems: Active and Suspected Problems (Last Updated 02/27/18 @ 10:29 by Pricila Olson) Nausea AND vomiting (Acute) - Physical Exam General: Alert, Oriented x3, Cooperative HEENT: Atraumatic, PERRLA, EOMI, Normocephalic Neck: Supple, No JVD, Negative Carotid Bruits Lungs: Clear to auscultation, Normal air movement Cardiovascular: Regular rate, No murmurs Abdomen: Bowel Sounds Present, Soft, Non Tender Extremities: No edema, Capillary Refill Less than 3 Seconds Skin: No rashes, No breakdown Musculoskeletal: No Tenderness to Palpation of Joints or Extremities Neurological: Cranial nerves II-XII grossly intact Psych/Mental Status: Normal Affect, Appropriate Vital Signs Temp Pulse Resp BP Pulse Ox 97.9 F 75 19 H 152/83 H 95 02/28/18 18:00 02/28/18 18:00 02/28/18 18:00 02/28/18 18:00 02/28/18 18:00 Oxygen Delivery Method Room Air Weight: 88.4 kg Body Mass Index (BMI) 31.4 Intake and Output for Last 24 Hours Intake Total 400 / 400 Output Total 950 / 950 Balance -550 / -550 Laboratory Tests Past 24 Hrs Sodium 139 Potassium 4.0 Chloride 102 Carbon Dioxide 28.0 Anion Gap 9 BUN 36 H Creatinine 6.05 H Estim Creat Clear Calc 11.11 POC Glucose POC Glucose 84 148 H Assessment/Plan All Active Problems (Last Updated 02/27/18 @ 10:29 by Pricila A Whitney) Nausea AND vomiting (Acute) Migraine (Acute) Metabolic encephalopathy (Acute) Abnormal electrocardiogram [ECG] [EKG] (Acute) Chest pain (Resolved) Tooth abscess (Resolved) Intractable nausea and vomiting (Resolved) Pneumonia (Resolved) Pulmonary edema (Resolved) Hyperkalemia (Resolved) Atypical chest pain (Resolved) Acute hypoxic respiratory failure (Resolved) Pulmonary edema (Resolved) Clostridium difficile enterocolitis (Resolved) Necrotizing myositis (Resolved) S/P repair of PDA (patent ductus arteriosus) (Resolved) Dysmenorrhea (Resolved) Hx of necrotizing fascIItis (Resolved) Iron deficiency anemia due to chronic blood loss (Resolved) Systolic congestive heart failure (Resolved) ESRD. HD as per schedule, tomorrow Hyperkalemia. hemolyzed sample. repeat K is better Anemia. ESTUARDO with HD will follow 02/28/18 306 <Electronically signed by Chey Martinez MD> Date Chey Martinez MD Cosigner Signature (if applicable): Date CC: Ivania Martinez M.D.; Ric Mccrary MD Signed BEDSIDE GLUCOSE Collected: 02/28/2018 Status: F Source: CIARAN 5:57 PM [facility] REPOSITORY TYPE CODE TESTS RESULT OUT OF RANGE REFERENCE UNITS LAB L501.080 70-110 mg/dL Normal BEDSIDE GLU 84 Result Comment: MANAGEMENT OF PATIENT CARE PER NURSING PROTOCOL Performed By: #### L501.080 #### [facility] Point of Care [address] [place], [place] [id number] BASIC METABOLIC Collected: 02/28/2018 Status: F Source: CIAARN PROFILE (BMP) 4:45 PM [facility] REPOSITORY TYPE CODE TESTS RESULT OUT OF RANGE REFERENCE UNITS LAB L501.0100 74-106 mg/dL High GLU 136 Result Comment: Fasting Glucose result greater than or equal to 126 mg/dL suggests DIABETES MELLITUS per A.D.A. criteria. Please note revised GLUCOSE reference range effective 2017. LAB L501.1000 7-18 mg/dL High BUN 36 LAB L501.1100 0.55-1.02 mg/dL High CREAT,SERUM 6.05 Result Comment: The validity of the calculated GFR AND GFRAA in patients over 70 years has not been determined. Clinical correlation is essential. LAB L501.1110 >60 mL/min Low EST GFR 8 Result Comment: Non- GFR Calc LAB L501.1115 >60 mL/min Low EST GFR - AA 10 Result Comment: GFR Calc LAB L501.1255 ml/min Normal Estimated CRCL 11.11 LAB L501.1300 10-20 RATIO Low BUN/CRE 6.0 LAB L501.2200 8.5-10 mg/dL Normal .1 CA 8.8 LAB L501.5300 136-14 mmol/L Normal 5 NA 139 LAB L501.5600 3.5-5. mmol/L Normal 1 K 4.0 LAB L501.5900 98-107 mmol/L Normal CL 102 LAB L501.6100 21.0-3 mmol/L Normal 2.0 CO2 28.0 LAB L501.6200 5-15 Normal GAP 9 Performed By: #### L500.2500 #### [facility] [address] [place], [address] HISTORY AND PHYSICAL Observed: 02/28/2018 Status: F Source: ONE[place] EXAM 4:27 PM [facility] REPOSITORY [facility] Medical Records Department [address] [place] [address] History and Physical 02/28/18 1427 MR#: [id number] Acct: [id number] Name: KOURTNEY REZA Rep #: [id number] : 1975 42 From: Adrienne Lucas MD PCP: Ric Mccrary MD Status: ADM AIDEN Y Location: ICU ICU09-1 Problem List (1) Nausea AND vomiting Status: Acute History of Present Illness Date of Admission: 02/28/18 Chief Complaint: nausea and vomiting The patient is a 42 year old F extensive past medical history of CAD status post stents done on 02/26/2018, ESRD on hemodialysis Saturdays, anemia of chronic disease, nonischemic cardiomyopathy with EF of 45-50%, diabetes, hypertension, hyperlipidemia, gastroparesis. She was admitted via the ED on 02/28/2018 with complaint of nausea and vomiting of 1 day. Patient was recently admitted to the hospital And managed for unstable angina. She underwent cardiac catheterization was found to have single vessel CAD of the mid LAD was status post PTCA and drug-eluting stents to mid LAD. She was discharged on 02/27/2018 after having dialysis for 2 consecutive days. Patient states when she got home, in the evening he started having nausea and vomiting and could not keep anything down. She had an associated fever of 100.7 Fahrenheit. 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 She had no associated chest pain, abdominal pain, cough or shortness of breath no diarrhea. She therefore came into the ED. Vitals in the ED showed temperature of 97.2 Fahrenheit, blood pressure of 153/77, pulse rate of 83 respiratory rate of 26. Labs done in the ED showed sodium of 134 and potassium of 6.2 with mild hemolysis, creatinine of 5.82, CBC showed hemoglobin of 12.7 and WBC of 9.2. Chest x-ray was unremarkable and brain CT was also unremarkable. She has been admitted to be managed for nausea and vomiting. Symptoms had resolved at time of review. [] Past Medical History Past Medical History (Chronic Problems): Chronic Problems (Last Updated 02/27/18 @ 10:29 by Pricila Olson) Stented coronary artery (Chronic 02/26/18) FFR of LAD 0.82; VIKY of mid LAD with 2.5 X 24 mm Promus Synergy, OM <50% stenosis per Dr. 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 Underwood @ [facility] ESRD (end stage renal disease) on dialysis (Chronic) Decubitus ulcer, stage III (Chronic) Anemia, chronic disease (Chronic) Pilonidal cyst with abscess (Chronic) GABRIEL (obstructive sleep apnea) (Chronic) Depression (Chronic) Anxiety (Chronic) HTN (hypertension) (Chronic) Nonischemic cardiomyopathy (Chronic) With ejection fraction 45 - 50%; with angiographically normal coronary arteries 05/2013; follows up with Dr. 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 Underwood @ [facility] ESRD (end stage renal disease) on dialysis (Chronic) N18.6, Z99.2 Decubitus ulcer, stage III (Chronic) L89.93 Anemia, chronic disease (Chronic) D63.8 Pilonidal cyst with abscess (Chronic) L05.01 GABRIEL (obstructive sleep apnea) (Chronic) G47.33 HTN (hypertension) (Chronic) I10 Nonischemic cardiomyopathy (Chronic) I42.8 With ejection fraction 45 - 50%; with angiographically normal coronary arteries 05/2013; follows up with Dr. Underwood Diabetes mellitus type 1 (Chronic) Hyperlipidemia (Chronic) E78.5 Obesity (BMI 30.0-34.9) (Chronic) E66.9 Gastroparesis (Chronic) K31.84 Allergies latex Allergy (Verified 02/28/18 10:07) Rash levofloxacin [From Levaquin] Adverse Reaction (Verified 02/28/18 10:07) PT CAN'T REMEMBER PT CAN'T REMEMBER metoclopramide HCl [From Reglan] Adverse Reaction (Verified 02/28/18 10:07) Nausea NSAIDS (Non-Steroidal Anti-Inflamma Adverse Reaction (Verified 02/28/18 10:07) kidney function oxycodone HCl [From Percocet] Adverse Reaction (Verified 02/28/18 10:07) HALLUCINATIONS Home Medications: Ambulatory Orders Medication Instructions Recorded Surgical History: Surgical History (Last Updated 02/27/18 @ 10:29 by Pricila Olson) Stented coronary artery (Chronic) Onset Date: 02/26/18 Z95.5 FFR of LAD 0.82; VIKY of mid LAD with 2.5 X 24 mm Promus Synergy, OM <50% stenosis per Dr. Underwood @ [facility] S/P repair of PDA (patent ductus arteriosus) (Resolved) Z98.890, Z87.74 At young age Surgical History: appendectomy, hysterectomy - and BSO, - - c-sections, L breast I+D for abscess, fistula placement LUE, L ankle surgery, appendectomy, PDA repair. Excision pilonidal cyst ulcer about 4 years ago. Colostomy placed due to rectal abscess/wound, patent ductus repair Smoking Status: Former smoker - *Family History Maternal History Items: Cancer, COPD, Diabetes, Hypertension, Renal Disease, Stroke Paternal History Items: Diabetes Sibling History Items: Cancer, Diabetes Review of Systems Constitutional: Reports: Fever, Weakness. Denies: Chills, Weight Change, Fatigue Eyes: Denies: Blurred vision HEENT: Denies: Difficulty Swallowing, Dysphasia, Ear Pain, Head Aches, Sinus Congestion, Sinus Drainage Cardiovascular: Denies: Chest Pain, Edema, Light Headedness, Palpitations, Syncope Respiratory: Denies: Cough, Pleuritic Pain, Shortness of Breath, Shortness of breath at rest, Sputum production Gastrointestinal: Reports: Nausea, Vomiting. Denies: Abdominal Pain, Constipation, Diarrhea Genitourinary: Denies: Dysuria Musculoskeletal: Denies: Joint Pain, Joint Tenderness Skin: Denies: Rash, Wounds Neurological: Denies: Balance problems, Double vision, Focal weakness, Numbness, Tingling Psychiatric: Denies: Anxiety, Depression, Homicidal Ideations, Suicidal Ideations Hematologic/ Lymphatic: Denies: Easy Bruising, Easy Bleeding VTE Information - Inpt Only VTE Present on Admission: No VTE Mechan Device Prophylaxis: None VTE Pharm Prophylaxis ordered?: Yes Patient Problems: Active and Suspected Problems (Last Updated 02/27/18 @ 10:29 by Pricila Olson) Nausea AND vomiting (Acute) - Physical Exam General: Alert, Oriented x3, Cooperative, No apparent distress HEENT: Atraumatic, PERRLA, EOMI, Normocephalic Oral: Moist Mucosa Neck: Supple, No JVD, Negative Carotid Bruits Lungs: Clear to auscultation, Normal air movement, No rhonchi, No wheeze, No rales Cardiovascular: Regular rate, Regular Rhythm, Normal S1, Normal S2, No murmurs Abdomen: Bowel Sounds Present, Soft, Non Tender, Non-Distended, No Hepato-splenomegaly, Passing Flatus, - - colostomy bag contains loose stool Extremities: No clubbing, No cyanosis, No edema, Capillary Refill Less than 3 Seconds Skin: No rashes, No breakdown Musculoskeletal: No Tenderness to Palpation of Joints or Extremities Lymphatic: No Cervical, Supraclavicular, or Inguinal Adenopathy Neurological: Cranial nerves II-XII grossly intact, Motor Exam 5/5 strength throughout Psych/Mental Status: Normal Affect, Appropriate, Alert and oriented to time, place, person, mood and affect Vital Signs Temp Pulse Resp BP Pulse Ox 97.2 F L 77 11 L 156/75 H 93 02/28/18 10:09 02/28/18 13:12 02/28/18 13:12 02/28/18 13:12 02/28/18 13:12 Oxygen Delivery Method Room Air Weight: 194 lb 14.218 oz Body Mass Index (BMI) 31.4 Laboratory Tests WBC 9.2 WBC RBC Hgb Hct MCV MCH MCHC RDW RDW Differential Plt Count MPV Immature Gran % (Auto) Neut % (Auto) Diagnostic Data Brain CT 02/28/18 10:35 IMPRESSION: Normal unenhanced CT scan of the brain. Electronically Signed: Nallely Pinto MD at 11:08 EDT Tel , Service support , Chest X-Ray 02/28/18 10:35 IMPRESSION: No acute cardiopulmonary process. Electronically Signed: Petty Tierney at 11:45 EDT Tel , Service support , Assessment/Plan All Active Problems (Last Updated 02/27/18 @ 10:29 by Pricila Olson) Nausea AND vomiting (Acute) Migraine (Acute) Metabolic encephalopathy (Acute) Abnormal electrocardiogram [ECG] [EKG] (Acute) Chest pain (Resolved) Tooth abscess (Resolved) Intractable nausea and vomiting (Resolved) Pneumonia (Resolved) Pulmonary edema (Resolved) Hyperkalemia (Resolved) Atypical chest pain (Resolved) Acute hypoxic respiratory failure (Resolved) Pulmonary edema (Resolved) Clostridium difficile enterocolitis (Resolved) Necrotizing myositis (Resolved) S/P repair of PDA (patent ductus arteriosus) (Resolved) Dysmenorrhea (Resolved) Hx of necrotizing fascIItis (Resolved) Iron deficiency anemia due to chronic blood loss (Resolved) Systolic congestive heart failure (Resolved) 52-year-old female with a history of ESRD on hemodialysis, CAD status post stent and hypertension as well as diabetes presenting with a complaint of nausea and vomiting. 1. Nausea and vomiting, etiology unclear * discharged one day ago after being managed for unstable angina * had stenting done. Symptoms started after she was discharged home * symptoms had resolved at time of review. * CT head was negative * admit to PCU (sent to ICU as PCU overflow) * give IV zofran 4mg q6prn * will hold off on IVF due to symptoms having resolved,a nd also concerns about fluid overload in ESRD patient * encourage liberal oral intake * will check UA to ensure she has no UTI * 2. CAD s/p stents * stenting done 02/26/18 * on aspirin, plavix, beta lewis, statin * on imdur 3. ESRD on HD TTS * Dialysis on Monday and Monday. States she had a total of 3 L taken over the last 2 days with her going a little bit below her dry weight of 87kg. * A consideration is dialysis dysequilibrium syndrome, but I dont think this is very likely. * has hyperkalemia as well. Will get nephrology consult 4. Hyperkalemia * K was 6.4 on admission, with moderate hemolysis. It may therefore not be very accurate * given kayexalate and hyperkalemia cocktail in ED. will repeat BMP at 6pm * 5. Diabetes mellitus * on lantus 10IU sc bid and lispro 10IU tidwm * ISS. Accuchecks ACHS * 6. hypertension * on carvedilol 25mg bid and lisinopril 20mg daily * will hold lisinopril in light of elevated potassium * DVT prophylaxis: Heparin GI prophylaxis: PPI CODE STATUS: Full code. Patient counseled about different types of CODE STATUS namely general cc, DNR CCA and full code. Patient elects to be full code. This note was generated with [employer] software. It may contain incorrect words, spelling, and punctuation that were not noted in checking the note before signing. Code Visit OBSV E AND M: [id number] Initial observation care L3 Procedures: 09314 Advncd Care Plan 30 Min 02/28/18 1627 <Electronically signed by Adrienne Lucas MD> Date Adrienne Lucas MD Cosigner Signature: Date (if applicable) CC: Adrienne Lucas MD; Ric Mccrary MD Signed URINALYSIS, COMPLETE Collected: 02/28/2018 Status: F Source: ONEIDA 3:45 PM [facility] REPOSITORY Order Comment: How was Urine Obtained? CLEAN CATCH TYPE CODE TESTS RESULT OUT OF RANGE REFERENCE UNITS LAB L400.3000 Yellow COLOR Normal Yellow LAB L400.3050 Clear Normal CLARITY Sl. Cloudy LAB L400.3200 Normal mg/dl High GLUCOSE, UR 250 LAB L400.3300 Negative mg/dL Normal BILIRUBIN URINE Negative LAB L400.3400 Negative mg/dl Normal KETONE UR Negative LAB L400.3465 1.002-1.030 Normal SP.GR. DIPSTX 1.010 LAB L400.3550 5.0 - 8.0 pH UR Normal 8.0 LAB L400.3600 Negative mg/dl High PROT DIPSTX 100 LAB L400.3700 Normal mg/dl Normal UROBILI Normal LAB L400.3750 Negative Normal NITRITE UR Negative LAB L400.3780 Negative /ul High 10 OCCULT BLOOD-UR LAB L400.3800 Negative /ul LEUK Normal ESTERASE Negative LAB L400.4050 0-5 /hpf WBC 0 Normal SEEN LAB L400.4100 0-5 /hpf Normal RBC-UA 0-5 SEEN LAB L400.4150 5-10 /hpf SQUAM Normal EPI 0-5 SEEN LAB L400.4300 None Seen /hpf Normal BACTERIA RARE LAB L400.4350 <or=2+ /hpf 0 Normal MUCUS, URINE SEEN Performed By: #### L400.0001 #### [facility] [address] [place], [address] BEDSIDE GLUCOSE Collected: 02/28/2018 Status: F Source: CIARAN 3:38 PM [facility] REPOSITORY TYPE CODE TESTS RESULT OUT OF REFERENCE UNITS RANGE LAB L501.080 70-110 mg/dL High BEDSIDE GLU 148 Result Comment: MANAGEMENT OF PATIENT CARE PER NURSING PROTOCOL Performed By: #### L501.080 #### [facility] Point of Care [address] [place] [address] 12 LEAD ELECTROCARDIOGRAM Observed: 02/28/2018 Status: F Source: CIARAN 11:32 AM [facility] REPOSITORY [facility] Cardiovascular Services [address] [place] [address] 12 Lead EKG 02/24/18 1831 MR#: [id number] Acct: [id number] Name: KOURTNEY REZA Rep #: [id number] : 1975 42 From: Kaitlynn Green MD Attending Dr: Francois Soler Status: DIS IN Ordering Dr: Wm Underwood MD Date: 02/26/18 Location: ICU Sex: F C Admitted: 02/24/18 Test Reason : ADMIT Blood Pressure : / mmHG Vent. Rate : 064 BPM Atrial Rate : 064 BPM P-R Int : 154 ms QRS Dur : 088 ms QT Int : 466 ms P-R-T Axes : 021 048 201 degrees QTc Int : 480 ms Normal sinus rhythm T wave abnormality, consider inferolateral ischemia Prolonged QT Abnormal ECG Confirmed by PETER BEASLEY, KAITLYNN ([id number]), web editor SHANIA SOLITARIO ([id number]) on 02/28/2018 11:32:03 AM Referred By: Confirmed By:KAITLYNN GREEN MD 02/28/18 1132 Date Kaitlynn Green MD CC: mW Underwood MD; Francois Soler; Ric Mccrary MD Signed 12 LEAD ELECTROCARDIOGRAM Observed: 02/28/2018 Status: F Source: CIARAN 11:27 AM [facility] REPOSITORY [facility] Cardiovascular Services [address] [place] [address] 12 Lead EKG 02/26/18 0552 MR#: [id number] Acct: [id number] Name: KOURTNEY REZA Rep #: [id number] : 1975 42 From: Kaitlynn Green MD Attending Dr: Francois Soler Status: DIS IN Ordering Dr: Kaitlynn Green MD Date: 02/26/18 Location: ICU Sex: F C Admitted: 02/24/18 Test Reason : AM EKG Blood Pressure : / mmHG Vent. Rate : 077 BPM Atrial Rate : 077 BPM P-R Int : 148 ms QRS Dur : 094 ms QT Int : 416 ms P-R-T Axes : 042 047 112 degrees QTc Int : 470 ms Normal sinus rhythm T wave abnormality, consider lateral ischemia Prolonged QT Abnormal ECG Confirmed by PETER BEASLEY, KAITLYNN ([id number]), web editor SHANIA SOLITARIO ([id number]) on 02/28/2018 11:27:36 AM Referred By: ABEL Confirmed By:KAITLYNN GREEN MD 02/28/18 1127 Date Kaitlynn Green MD CC: Francois Soler; Kaitlynn Green MD; Ric Mccrary MD Signed PROTHROMBIN TIME W/INR Collected: 02/28/2018 Status: F Source: CIARAN 11:25 AM [facility] REPOSITORY Order Comment: REDRAW. PREVIOUS SPECIMEN WAS REJECTED FOR TESTING DUE TO HEMOLYSIS X2. SPECIMEN WAS DISCARDED. 02/28/18 1119 Garrick Angel. TYPE CODE TESTS RESULT OUT OF RANGE REFERENCE UNITS LAB L300.4150 11.7-14.9 SECONDS Normal PROTIME 14.0 LAB L300.4200 Normal INR 1.1 Performed By: #### L300.3900, L300.4310 #### [facility] [address] [place], [address] PARTIAL THROMBOPLAST Collected: 02/28/2018 Status: F Source: CIARAN TIME 11:25 AM [facility] REPOSITORY Order Comment: REDRAW. PREVIOUS SPECIMEN WAS REJECTED FOR TESTING DUE TO HEMOLYSIS X2. SPECIMEN WAS DISCARDED. 02/28/18 Vandana9 Garrick Angel. TYPE CODE TESTS RESULT OUT OF RANGE REFERENCE UNITS LAB L300.4310 24.1-36.2 Seconds Normal PTT 28.4 Performed By: #### L300.3900, L300.4310 #### [facility] [address] [place], [place], [address] CBC W/DIFF, AUTOMATED Collected: 02/28/2018 Status: F Source: ONE[place] 10:40 AM [facility] REPOSITORY TYPE CODE TESTS RESULT OUT OF RANGE REFERENCE UNITS LAB L100.1000 4.4-11.0 K/mm3 Normal WBC 9.2 LAB L100.1200 4.2-5.4 M/mm3 Low RBC 4.02 LAB L100.1300 12.0-15.0 g/dl Normal HGB 12.7 LAB L100.1400 37-47 % Normal HCT 40.7 LAB L100.1500 81-99 fL High MCV 101.2 LAB L100.1600 27.0-32.0 pg Normal MCH 31.6 LAB L100.1700 32-36 g/gl Low MCHC 31.2 LAB L100.1810 11.6-14.6 % High RDW CV 16.1 LAB L100.1820 35.1-43.9 fl High RDW SD 59.7 LAB L100.1900 150-450 K/mm3 Low PLT 102 LAB L100.2000 6.2-12.0 fl Normal MPV 9.3 LAB L100.2100 47-70 % High NEUT% 86.0 LAB L100.2200 19-41 % Low LY% 9.2 LAB L100.2300 0-10 % Normal MONO% 2.8 LAB L100.2400 0-5 % Normal EO% 1.8 LAB L100.2500 0-1 % Normal BASO% 0.2 LAB L100.2550 0.0-0.9 % Normal IM GRAN % 0.000 Result Comment: IG% - Immature Granulocytes (promyelocytes, myelocytes and metamyelocytes) > 1% indicates that a LEFT SHIFT is Present. LAB L100.2620 2.0-7.7 X10 3/uL High Absolute Neut 7.9 LAB L100.2720 0.83-4.51 X10 3/ul Normal Absolute Lymph 0.85 Performed By: #### L100.0100 #### [facility] [address] [place], [address] BASIC METABOLIC Collected: 02/28/2018 Status: F Source: ONE[place] PROFILE (BMP) 10:40 AM [facility] REPOSITORY TYPE CODE TESTS RESULT OUT OF RANGE REFERENCE UNITS LAB L501.0100 74-106 mg/dL High GLU 197 Result Comment: Fasting Glucose result greater than or equal to 126 mg/dL suggests DIABETES MELLITUS per A.D.A. criteria. Please note revised GLUCOSE reference range effective 2017. LAB L501.1000 7-18 mg/dL High BUN 34 LAB L501.1100 0.55-1.02 mg/dL High CREAT,SERUM 5.82 Result Comment: The validity of the calculated GFR AND GFRAA in patients over 70 years has not been determined. Clinical correlation is essential. LAB L501.1110 >60 mL/min Low EST GFR 8 Result Comment: Non- GFR Calc LAB L501.1115 >60 mL/min Low EST GFR - AA 10 Result Comment: GFR Calc LAB L501.1255 ml/min Normal Estimated CRCL 11.55 LAB L501.1300 10-20 RATIO Low BUN/CRE 5.8 LAB L501.2200 8.5-10 mg/dL Normal .1 CA 9.0 LAB L501.5300 136-14 mmol/L Low 5 NA 134 LAB L501.5600 3.5-5. mmol/L High 1 K alert 6.2 Result Comment: Moderate Hemolysis, Result may be falsely increased .Critical Result(s) Called to CAYDEN Mathews at: 11:20:36 02/28/2018 by: FIORELLA SHARMA LAB L501.5900 98-107 mmol/L Low CL 97 LAB L501.6100 21.0-32.0 mmol/L Normal CO2 28.0 LAB L501.6200 5-15 Normal GAP 9 Performed By: #### L500.2500, L500.3400, L501.2450, L501.4010 #### [facility] [address] [place], [address] LIVER PROFILE Collected: 02/28/2018 Status: F Source: [place] 10:40 AM [facility] REPOSITORY TYPE CODE TESTS RESULT OUT OF RANGE REFERENCE UNITS LAB L501.1500 6.4-8.2 g/dL High T PROT 8.4 LAB L501.1800 3.2-5.0 g/dL Normal ALB 3.2 LAB L501.1950 2.2-4.2 g/dL High GLOB 5.2 LAB L501.4100 15-37 U/L High AST 48 Result Comment: Moderate Hemolysis, Result may be falsely increased. LAB L501.4305 45-117 U/L Normal ALK P 90 LAB L501.4405 13-56 U/L Normal ALT 25 LAB L501.4600 0.20-1.00 mg/dL Normal T BILI 0.50 LAB L501.4700 0.00-0.30 mg/dL Normal D BILI 0.05 Performed By: #### L500.2500, L500.3400, L501.2450, L501.4010 #### [facility] [address] [place], [address] LIPASE Collected: 02/28/2018 Status: F Source: [place] 10:40 AM [facility] REPOSITORY TYPE CODE TESTS RESULT OUT OF RANGE REFERENCE UNITS LAB L501.2450 73-393 U/L Normal LIPASE 164 Performed By: #### L500.2500, L500.3400, L501.2450, L501.4010 #### [facility] [address] [place], [address] TROPONIN-I Collected: 02/28/2018 Status: F Source: [place] 10:40 AM [facility] REPOSITORY TYPE CODE TESTS RESULT OUT OF RANGE REFERENCE UNITS LAB L501.4010 <0.045 ng/mL Normal 0.018 TROPONIN-I Result Comment: TROPONIN-I EXPECTED VALUES <0.045 Negative 0.045 - 0.590 Consistent with Cardiac Damage > OR = 0.600 Critical Value Not every elevated troponin is indicative of [place]. These values should be used with clinical judgement in examining the patient's clinical picture for diagnosis. To establish a diagnosis of [place] versus myocardial injury, there must be a demonstrated rise and/or fall in the troponin values, in addition to ischemic symptoms, EKG changes, new regional wall motion abnormality, and/or angiographical evidence. PLEASE NOTE: REFERENCE RANGES EDITED 17 Performed By: #### L500.2500, L500.3400, L501.2450, L501.4010 #### [facility] [address] [place], [address] BRAIN/HEAD WITHOUT Observed: 02/28/2018 Status: F Source: [place] CONTRAST 10:37 AM [facility] REPOSITORY [facility] Imaging Services [address] [place] [address] Brain/Head without Contrast MR#: [id number] Acct: [id number] Name: KOURTNEY REZA Rep #: [id number] : 1975 F 42 From: Nallely Pinto PCP: Ric Mccrary MD Status: REG ER Study: Brain/Head without Contrast Date of Exam: 02/28/18 Exam# [id number] Ordering Dr: Wm Mills MD STUDY: CT BRAIN WITHOUT CONTRAST REASON FOR EXAM: Female, 42 years old. Dizziness and nausea today, dialysis d/t renal failure, diabetes, hypertension.. RADIATION DOSAGE (If Supplied By Facility): CTDIvol = ( 44.99 ) mGy, DLP = ( 779.24 ) mGycm TECHNIQUE: Transaxial CT imaging of the brain was performed without administration of intravenous contrast material. Individualized dose optimization techniques were used for this CT. COMPARISON: None. FINDINGS: Normal soft tissue structures. Normal calvarium. Normal size ventricles and extra-axial spaces for the patient's age. Normal white matter tracts of the cerebral hemispheres. Normal basal ganglia and thalami. Normal brainstem. Normal cerebellum. There is no intracranial hemorrhage. There are no findings of an acute ischemic infarction. Normal visualized paranasal sinuses. CT/Brain/Head without Contrast IMPRESSION: Normal unenhanced CT scan of the brain. Electronically Signed: Nallely Pinto MD at 11:08 EDT Tel , Service support , CC: Wm Mills MD; Ric Mccrary MD Tester Operator Helper: Signed CHEST 1 VIEW Observed: 02/28/2018 Status: F Source: [place] 10:37 AM [facility] REPOSITORY [facility] Imaging Services [address] [place] [address] Chest 1 View MR#: [id number] Acct: [id number] Name: KOURTNEY REZA Rep #: [id number] : 1975 F 42 From: Petty Tierney MD PCP: Ric Mccrary MD Status: REG ER Study: Chest 1 View Date of Exam: 02/28/18 Exam# [id number] Ordering Dr: Wm Mills MD STUDY: X-RAY CHEST REASON FOR EXAM: Female, 42 years old. Dizziness and vomiting. Onset yesterday after discharge from ICU. Stent placement February 26. TECHNIQUE: Portable chest COMPARISON: None 02/24/2018. FINDINGS: The lungs are clear and expanded. Normal cardiomediastinal silhouette, latrell and pleural margins. No acute osseous or upper abdominal process. RAD/Chest 1 View IMPRESSION: No acute cardiopulmonary process. Electronically Signed: Petty Tierney at 11:45 EDT Tel , Service support , CC: Wm Mills MD; Ric Mccrary MD Tester Operator Helper: Signed DISCHARGE SUMMARY Observed: 02/27/2018 Status: F Source: [place] 1:20 PM [facility] REPOSITORY [facility] Medical Records Department [address] [place] [address] Discharge Summary 02/27/18 1313 MR#: [id number] Acct: [id number] Name: KOURTNEY REZA Rep #: [id number] : 1975 42 From: Francois Soler MD PCP: Ric Mccrary MD Status: DIS IN Y Location: ICU ICU08-1 Discharge Date and Diagnosis Date of Admission: 02/24/18 Date of Discharge: 02/27/18 - Primary Discharge Diagnosis #1 unstable angina, status post cardiac catheterization, post PTCA and VIKY to mid LAD. #2 hyperkalemia. - Secondary Discharge Diagnosis Chronic Problems (Last Updated 02/27/18 @ 10:29 by Pricila Olson) Stented coronary artery (Chronic 02/26/18) FFR of LAD 0.82; VIKY of mid LAD with 2.5 X 24 mm Promus Synergy, OM <50% stenosis per Dr. 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 Underwood @ [facility] ESRD (end stage renal disease) on dialysis (Chronic) Decubitus ulcer, stage III (Chronic) Anemia, chronic disease (Chronic) Pilonidal cyst with abscess (Chronic) GABRIEL (obstructive sleep apnea) (Chronic) Depression (Chronic) Anxiety (Chronic) HTN (hypertension) (Chronic) Nonischemic cardiomyopathy (Chronic) With ejection fraction 45 - 50%; with angiographically normal coronary arteries 05/2013; follows up with Dr. Underwood Diabetes mellitus type 1 (Chronic) Hyperlipidemia (Chronic) Obesity (BMI 30.0-34.9) (Chronic) Gastroparesis (Chronic) Hospital Course and Treatment Imaging Results: Clinical Impression(s) from Imaging Studies Brain CT 02/24/18 15:13 IMPRESSION: Normal unenhanced CT scan of the brain and unchanged since 06/08/2017. Electronically Signed: Woodrow Sun MD at 15:51 EDT , Service support , Chest X-Ray 02/24/18 15:27 IMPRESSION: No acute cardiopulmonary abnormalities. Electronically Signed: Anila Le MD at 16:18 EDT Tel Direct: [phone], Service support , Dr. Underwood, cardiology. Operations: None Procedures: Cardiac catheterization, EKG Summary of Care Provided: Patient seen and examined on the day of discharge and appeared to be stable to be discharged home. She denies any more chest pain or shortness of breath. Her vital signs are stable. - Physical Exam General: Alert, Oriented x3, Cooperative, No apparent distress. HEENT: Atraumatic, PERRLA, EOMI. Neck: Supple, No JVD, Negative Carotid Bruits, Trachea Midline, Thyroid Normal. Lungs: Clear to auscultation, Normal air movement, No rhonchi, No wheeze, No rales. Cardiovascular: Regular rate, Regular Rhythm, Normal S1, Normal S2, PMI Normal. Abdomen: Bowel Sounds Present, Soft, Non Tender, Non-Distended, No Hepato-splenomegaly. Extremities: No clubbing, No cyanosis, No edema Skin: No rashes, No breakdown Neurological: Neuro grossly intact Vital Signs are stable. Hospital course: The patient is a 42 year old F admitted because of chest pain, found to have unstable angina. She underwent cardiac catheterization, found to have single- vessel CAD of the mid LAD, status post PTCA and VIKY to mid LAD. She was treated with aspirin, statins, Plavix, beta blockers, lisinopril and isosorbide mononitrate. She was found to have hyperkalemia and her potassium was up to 6.4. She is a dialysis patient and she underwent hemodialysis on 2 successive days and her potassium returned back to normal. Her routine blood work was unremarkable and at her baseline except for high potassium which resolved after hemodialysis. On admission, she complained of severe headache for which CT scan brain done and showed no acute hemorrhage or stroke. Her vital signs were stable and her blood pressure was under reasonable control. Blood sugar was stable. Patient discharged home in stable medical condition, discharged on Plavix, continued on aspirin, statins, beta blockers and CAM inhibitors as well as nitrates, recommended follow-up with PCP in 1 week and follow-up with cardiology according to Dr. Green recommendation. Recommended to continue hemodialysis according to her regular schedule. Discharge Activity: Return to Normal Activity Weight Bearing Status: Weight bearing as tolerated Call your doctor if you observe: Fever of 101 or Higher, Shortness of breath, Dizziness, Fainting spells, Chest pain, Increased palpitations (irregular heartbeat), Uncontrolled pain Home Medications: Medications to take at Discharge Aspirin [Aspirin, Baby] 81 mg PO DAILY@0800 01/26/16 Calcium Acetate [Phoslo Gel Cap] 1,334 mg PO TIDCM 01/26/16 Ergocalciferol [Vitamin D] 50,000 unit PO FR 01/26/16 Insulin Aspart [Novolog Flexpen] 10 units SC TIDCM 01/26/16 Insulin Glargine,Hum.rec.anlog [Lantus] 5 unit SQ QHS 01/09/17 proMETHazine tablet [Phenergan tablet] 25 mg PO Q6H PRN PRN #10 tablet 03/06/17 Lisinopril 20 mg PO DAILY 03/29/17 Sodium Bicarbonate 650 mg PO TUTHSA 03/29/17 Carvedilol [Coreg (Beta Lewis)] 25 mg PO BID 06/17/17 Fluoxetine HCl 40 mg PO DAILY 09/02/17 ALPRAZolam [Xanax] 0.5 mg PO DAILY 11/21/17 Ondansetron [Zofran Odt] 4 mg PO Q8H PRN PRN #10 tablet 01/27/18 Atorvastatin Calcium 20 mg PO QHS 02/08/18 Dicyclomine HCl [Bentyl] 20 mg PO 4X/DAY PRN PRN 02/08/18 Isosorbide DN [Isordil] 60 mg PO DAILY 02/08/18 Naproxen 500 mg PO BID PRN PRN 02/08/18 Omeprazole Magnesium [Prilosec Otc] 20 mg PO DAILY 02/08/18 Clopidogrel Bisulfate [Plavix] 75 mg PO DAILY #90 tab 02/27/18 Following Prescrptions Were Given to Patient: Clopidogrel Bisulfate [Plavix] 75 mg PO DAILY #90 tab Other Amb Orders: Phase II, Outpatient Cardiac Rehab Location: None Selected Primary Care Physician: Ric Mccrary MD [Primary Care Provider] - Please follow up with your Primary Care Physician in: 1 week. Please Follow Up With: Kaitlynn Green MD When: please call his office. Disposition: Home Minutes spent on discharge:: 32 Patient Condition:: Stable Medical Necessity - Tobacco Use Smoking Status: Current every day smoker Tobacco Use: Cigarettes Meaningful Use Info Meaningful Use Diagnoses (Choose all that apply): None applicable Code Visit Inpatient Mariaelena HAMILTON M: [id number] Disch Hosp 02/27/18 1320 <Electronically signed by Francois Soler MD> Date Francois Soler MD Cosigner Signature (if applicable): Date CC: Francois Soler; Kaitlynn Green MD; Ric Mccrary MD Signed BEDSIDE GLUCOSE Collected: 02/27/2018 Status: F Source: [place] 11:30 AM [facility] REPOSITORY TYPE CODE TESTS RESULT OUT OF RANGE REFERENCE UNITS LAB L501.080 70-110 mg/dL Normal BEDSIDE GLU 79 Result Comment: MANAGEMENT OF PATIENT CARE PER NURSING PROTOCOL Performed By: #### L501.080 #### [facility] Point of Care [address] [place] [address] DISCHARGE INSTRUCTION Observed: 02/27/2018 Status: F Source: [place] 8:57 AM [facility] REPOSITORY [facility] Medical Records Department [address] [place] [address] Instructions for Home/Discharge Instructions 02/27/18 0856 MR#: [id number] Acct: [id number] Name: KOURTNEY REZA Rep #: [id number] : 1975 42 From: Francois Soler MD PCP: Ric Mccrary MD Status: ADM IN - Discharge Diagnoses Current Active Problems: Current Active and Chronic Problems Chest pain (Acute) Migraine (Acute) Metabolic encephalopathy (Acute) Abnormal electrocardiogram [ECG] [EKG] (Acute) CAD (coronary artery disease) (Acute) You will use the following diet at home:: Calorie/Carbohydrate Controlled (specify 1200, 1400, etc) - 1800 bridger, Cardiac, Renal (restricted protein/sodium) Your food should be the consistency of: Regular Discharge Activity: Return to Normal Activity Weight Bearing Status: Weight bearing as tolerated Call your doctor if you observe: Fever of 101 or Higher, Shortness of breath, Dizziness, Fainting spells, Chest pain, Increased palpitations (irregular heartbeat), Uncontrolled pain Allergies/Adverse Reactions: Allergies latex Allergy (Verified 02/08/18 14:54) Rash levofloxacin [From Levaquin] Adverse Reaction (Verified 02/08/18 14:54) PT CAN'T REMEMBER PT CAN'T REMEMBER metoclopramide HCl [From Reglan] Adverse Reaction (Verified 02/08/18 14:54) Nausea NSAIDS (Non-Steroidal Anti-Inflamma Adverse Reaction (Verified 02/08/18 14:54) kidney function oxycodone HCl [From Percocet] Adverse Reaction (Verified 02/08/18 14:54) HALLUCINATIONS Medications to take at Discharge Aspirin [Aspirin, Baby] 81 mg PO DAILY@0800 01/26/16 Calcium Acetate [Phoslo Gel Cap] 1,334 mg PO TIDCM 01/26/16 Ergocalciferol [Vitamin D] 50,000 unit PO FR 01/26/16 Insulin Aspart [Novolog Flexpen] 10 units SC TIDCM 01/26/16 Insulin Glargine,Hum.rec.anlog [Lantus] 5 unit SQ QHS 01/09/17 proMETHazine tablet [Phenergan tablet] 25 mg PO Q6H PRN PRN #10 tablet 03/06/17 Lisinopril 20 mg PO DAILY 03/29/17 Sodium Bicarbonate 650 mg PO TUTHSA 03/29/17 Carvedilol [Coreg (Beta Lewis)] 25 mg PO BID 06/17/17 Fluoxetine HCl 40 mg PO DAILY 09/02/17 ALPRAZolam [Xanax] 0.5 mg PO DAILY 11/21/17 Ondansetron [Zofran Odt] 4 mg PO Q8H PRN PRN #10 tablet 01/27/18 Atorvastatin Calcium 20 mg PO QHS 02/08/18 Dicyclomine HCl [Bentyl] 20 mg PO 4X/DAY PRN PRN 02/08/18 Isosorbide DN [Isordil] 60 mg PO DAILY 02/08/18 Naproxen 500 mg PO BID PRN PRN 02/08/18 Omeprazole Magnesium [Prilosec Otc] 20 mg PO DAILY 02/08/18 Clopidogrel Bisulfate [Plavix] 75 mg PO DAILY #90 tab 02/27/18 The following prescriptions were given: Clopidogrel Bisulfate [Plavix] 75 mg PO DAILY #90 tab Primary Care Physician: Ric Mccrary MD [Primary Care Provider] - Please follow up with your Primary Care Physician in: 1 week. Test Results: Test results from this visit will be discussed in further detail at your follow-up appointment, if applicable. Please Follow Up With: Kaitlynn Green MD When: please call his office. 02/27/1857 <Electronically signed by Francois Soler MD> Date Francois Soler MD CC: Nawaf Valdivia MD; Kaitlynn Green MD; Ric Mccrary MD BEDSIDE GLUCOSE Collected: 02/27/2018 Status: F Source: [place] 6:56 AM [facility] REPOSITORY TYPE CODE TESTS RESULT OUT OF REFERENCE UNITS RANGE LAB L501.080 70-110 mg/dL High BEDSIDE GLU 203 Result Comment: MANAGEMENT OF PATIENT CARE PER NURSING PROTOCOL Performed By: #### L501.080 #### [facility] Point of Care [facility] [place] [address] BASIC METABOLIC Collected: 02/27/2018 Status: F Source: [place] PROFILE (BMP) 6:30 AM [facility] REPOSITORY TYPE CODE TESTS RESULT OUT OF RANGE REFERENCE UNITS LAB L501.0100 74-106 mg/dL High GLU 194 Result Comment: Fasting Glucose result greater than or equal to 126 mg/dL suggests DIABETES MELLITUS per A.D.A. criteria. Please note revised GLUCOSE reference range effective 2017. LAB L501.1000 7-18 mg/dL High BUN 35 LAB L501.1100 0.55-1.02 mg/dL High CREAT,SERUM 5.13 Result Comment: The validity of the calculated GFR AND GFRAA in patients over 70 years has not been determined. Clinical correlation is essential. LAB L501.1110 >60 mL/min Low EST GFR 10 Result Comment: Non- GFR Calc LAB L501.1115 >60 mL/min Low EST GFR - AA 12 Result Comment: GFR Calc LAB L501.1255 ml/min Normal Estimated CRCL 13.10 LAB L501.1300 10-20 RATIO Low BUN/CRE 6.8 LAB L501.2200 8.5-10 mg/dL Low .1 CA 8.1 LAB L501.5300 136-14 mmol/L Normal 5 NA 137 LAB L501.5600 3.5-5. mmol/L Normal 1 K 4.6 LAB L501.5900 98-107 mmol/L Low CL 94 LAB L501.6100 21.0-3 mmol/L High 2.0 CO2 34.0 LAB L501.6200 5-15 Normal GAP 9 Performed By: #### L500.2500 #### [facility] [address] [place], [place], [address] CBC-COMPLETE BLOOD CNT Collected: 02/27/2018 Status: F Source: [place] NO DIFF 6:30 AM [facility] REPOSITORY TYPE CODE TESTS RESULT OUT OF RANGE REFERENCE UNITS LAB L100.1000 4.4-11.0 K/mm3 Normal WBC 6.0 LAB L100.1200 4.2-5.4 M/mm3 Low RBC 3.82 LAB L100.1300 12.0-15.0 g/dl Normal HGB 12.3 LAB L100.1400 37-47 % Normal HCT 38.8 LAB L100.1500 81-99 fL High MCV 101.6 LAB L100.1600 27.0-32.0 pg High MCH 32.2 LAB L100.1700 32-36 g/gl Low MCHC 31.7 LAB L100.1810 11.6-14.6 % High RDW CV 15.8 LAB L100.1820 35.1-43.9 fl High RDW SD 58.2 LAB L100.1900 150-450 K/mm3 Low PLT 129 LAB L100.2000 6.2-12.0 fl Normal MPV 9.2 Performed By: #### L100.0500 #### [facility] [address] [place], [address] BEDSIDE GLUCOSE Collected: 02/27/2018 Status: F Source: [place] 1:07 AM [facility] REPOSITORY TYPE CODE TESTS RESULT OUT OF REFERENCE UNITS RANGE LAB L501.080 70-110 mg/dL High BEDSIDE GLU 194 Result Comment: MANAGEMENT OF PATIENT CARE PER NURSING PROTOCOL Performed By: #### L501.080 #### [facility] Point of Care [address] [place] [address] BEDSIDE GLUCOSE Collected: 02/26/2018 Status: F Source: [place] 9:44 PM [facility] REPOSITORY TYPE CODE TESTS RESULT OUT OF REFERENCE UNITS RANGE LAB L501.080 70-110 mg/dL High BEDSIDE GLU 247 Result Comment: MANAGEMENT OF PATIENT CARE PER NURSING PROTOCOL Performed By: #### L501.080 #### [facility] Point of Care [address] [place] [address] POTASSIUM Collected: 02/26/2018 Status: F Source: [place] 8:40 PM [facility] REPOSITORY TYPE CODE TESTS RESULT OUT OF RANGE REFERENCE UNITS LAB L501.5600 3.5-5.1 mmol/L Low K 3.4 Performed By: #### L501.5600 #### [facility] [address] [place], [address] BEDSIDE GLUCOSE Collected: 02/26/2018 Status: F Source: [place] 7:24 PM [facility] REPOSITORY TYPE CODE TESTS RESULT OUT OF REFERENCE UNITS RANGE LAB L501.080 70-110 mg/dL High BEDSIDE GLU 148 Result Comment: MANAGEMENT OF PATIENT CARE PER NURSING PROTOCOL Performed By: #### L501.080 #### [facility] Point of Care [address] [place] [address] PROGRESS Observed: 02/26/2018 Status: COMPLETED Source: [place] 3:54 PM [facility] [place] REPOSITORY HNO ID: [id number] Author: Ric Mccrary Service: (none) Author Type: Physician Type: Progress Notes Filed: 02/27/2018 1:27 PM Note Text: agree PROGRESS Observed: 02/26/2018 Status: COMPLETED Source: [place] 3:17 PM [facility] REPOSITORY O ID: [id number] Author: Chip (Cayden) Sherrill Service: (none) Author Type: Registered Nurse Type: Progress Notes Filed: 02/26/2018 3:40 PM Note Text: PRIMARY CARE COORDINATION DISCHARGE Patient has been identified by name and date of : Yes Patient discharged from Primary Care Coordination: YES Goals met N/A Goals not met Patient engagement has not occurred despite ongoing education provided regarding the importance of following the physician plan of treatment Patient knowledgeable and confident in contacting Health Care Providers for questions or concerns: YES Reinforced with patient and/or caregiver that Primary Care Coordination may be reinitiated if a change in status warrants navigation readmission: Not applicable Discussed with: PCP Agree What was the Focus/Challenges addressed in Care Coordination? Education on Chronic Disease Management Care Gaps Appropriate level of care options - Utilization Disposition: Follow up with PCP Care Team Tab - End: YES Patient doesn't always answer PCC phone calls and doesn't follow through with showing for PCP appts. Pt skips dialysis treatments then is sent to ER or admitted to hospital. PCP agrees pt is not going to engage in her healthcare. Chip Tolliver, RN BEDSIDE GLUCOSE Collected: 02/26/2018 Status: F Source: [place] 2:11 PM [facility] REPOSITORY TYPE CODE TESTS RESULT OUT OF REFERENCE UNITS RANGE LAB L501.080 70-110 mg/dL High BEDSIDE GLU 174 Result Comment: MANAGEMENT OF PATIENT CARE PER NURSING PROTOCOL Performed By: #### L501.080 #### [facility] Point of Care [address] [address] 12 LEAD ELECTROCARDIOGRAM Observed: 02/26/2018 Status: F Source: [place] 1:16 PM [facility] REPOSITORY [facility] Cardiovascular Services [address] [place] [address] 12 Lead EKG 02/24/18 1504 MR#: [id number] Acct: [id number] Name: KOURTNEY REZA Rep #: [id number] : 1975 42 From: Kaitlynn Green MD Attending Dr: Francois Soler Status: ADM IN Ordering Dr: Anila Bartlett MD Date: 02/24/18 Location: ICU Sex: F C Admitted: 02/24/18 Test Reason : CHEST PRESSURE Blood Pressure : / mmHG Vent. Rate : 070 BPM Atrial Rate : 070 BPM P-R Int : 142 ms QRS Dur : 090 ms QT Int : 446 ms P-R-T Axes : 035 063 248 degrees QTc Int : 481 ms Normal sinus rhythm T wave abnormality, consider inferior ischemia T wave abnormality, consider anterolateral ischemia Prolonged QT Abnormal ECG Confirmed by PETER BEASLEY, KAITLYNN ([id number]), web editor SHANIA SOLITARIO ([id number]) on 02/26/2018 1:16:37 PM Referred By: RAJENDRA/KISHAN Confirmed By:KAITLYNN GREEN MD 02/26/18 1316 Date Kaitlynn Green MD CC: Francois Soler; Anila Bartlett MD; Ric Mccrary MD Signed ACT ACTIVATED CLOTTING Collected: 02/26/2018 Status: F Source: [place] TIME 10:42 AM [facility] REPOSITORY TYPE CODE TESTS RESULT OUT OF RANGE REFERENCE UNITS LAB L9100.0100 74-137 sec High ACTk CLOT 213 TIME Performed By: #### L9100.0100 #### [facility] Point of Care [address] [place] [address] BEDSIDE GLUCOSE Collected: 02/26/2018 Status: F Source: [place] 6:42 AM [facility] REPOSITORY TYPE CODE TESTS RESULT OUT OF REFERENCE UNITS RANGE LAB L501.080 70-110 mg/dL High BEDSIDE GLU 179 Result Comment: MANAGEMENT OF PATIENT CARE PER NURSING PROTOCOL Performed By: #### L501.080 #### [facility] Point of Care [address] [place] [address] BASIC METABOLIC Collected: 02/26/2018 Status: F Source: [place] PROFILE (BMP) 6:26 AM [facility] REPOSITORY TYPE CODE TESTS RESULT OUT OF RANGE REFERENCE UNITS LAB L501.0100 74-106 mg/dL High GLU 177 Result Comment: Fasting Glucose result greater than or equal to 126 mg/dL suggests DIABETES MELLITUS per A.D.A. criteria. Please note revised GLUCOSE reference range effective 2017. LAB L501.1000 7-18 mg/dL High BUN 41 LAB L501.1100 0.55-1.02 mg/dL High CREAT,SERUM 6.48 Result Comment: The validity of the calculated GFR AND GFRAA in patients over 70 years has not been determined. Clinical correlation is essential. LAB L501.1110 >60 mL/min Low EST GFR 7 Result Comment: Non- GFR Calc LAB L501.1115 >60 mL/min Low EST GFR - AA 9 Result Comment: GFR Calc LAB L501.1255 ml/min Normal Estimated CRCL 10.37 LAB L501.1300 10-20 RATIO Low BUN/CRE 6.3 LAB L501.2200 8.5-10 mg/dL Low .1 CA 8.1 LAB L501.5300 136-14 mmol/L Low 5 NA 134 LAB L501.5600 3.5-5. mmol/L High 1 K alert 6.4 Result Comment: Critical Result(s) Called at: 07:19:28 02/26/2018 by: Chantelle Salazar to [facility] LAB L501.5900 98-107 mmol/L Normal CL 100 LAB L501.6100 21.0-32.0 mmol/L Normal CO2 28.0 LAB L501.6200 5-15 Normal 6 GAP Performed By: #### L500.2500 #### [facility] [address] [place], [place], [id number] PROTHROMBIN TIME W/INR Collected: 02/26/2018 Status: F Source: [place] 4:16 AM [facility] REPOSITORY TYPE CODE TESTS RESULT OUT OF RANGE REFERENCE UNITS LAB L300.4150 11.7-14.9 SECONDS Normal PROTIME 13.9 LAB L300.4200 Normal INR 1.1 Performed By: #### L300.3900, L300.4310 #### [facility] [address] [place], [address] PARTIAL THROMBOPLAST Collected: 02/26/2018 Status: F Source: [place] TIME 4:16 AM [facility] REPOSITORY TYPE CODE TESTS RESULT OUT OF RANGE REFERENCE UNITS LAB L300.4310 24.1-36.2 Seconds Normal PTT 31.5 Performed By: #### L300.3900, L300.4310 #### [facility] [facility] [address] [place], [place], [address] CBC W/DIFF, AUTOMATED Collected: 02/26/2018 Status: F Source: [place] 4:16 AM [facility] REPOSITORY TYPE CODE TESTS RESULT OUT OF RANGE REFERENCE UNITS LAB L100.1000 4.4-11.0 K/mm3 Normal WBC 7.2 LAB L100.1200 4.2-5.4 M/mm3 Low RBC 3.88 LAB L100.1300 12.0-15.0 g/dl Normal HGB 12.2 LAB L100.1400 37-47 % Normal HCT 40.0 LAB L100.1500 81-99 fL High MCV 103.1 LAB L100.1600 27.0-32.0 pg Normal MCH 31.4 LAB L100.1700 32-36 g/gl Low MCHC 30.5 LAB L100.1810 11.6-14.6 % High RDW CV 16.3 LAB L100.1820 35.1-43.9 fl High RDW SD 61.3 LAB L100.1900 150-450 K/mm3 Low PLT 124 LAB L100.2000 6.2-12.0 fl Normal MPV 8.7 LAB L100.2100 47-70 % High NEUT% 73.0 LAB L100.2200 19-41 % Low LY% 17.1 LAB L100.2300 0-10 % Normal MONO% 3.1 LAB L100.2400 0-5 % High EO% 6.5 LAB L100.2500 0-1 % Normal BASO% 0.3 LAB L100.2550 0.0-0.9 % Normal IM GRAN % 0.000 Result Comment: IG% - Immature Granulocytes (promyelocytes, myelocytes and metamyelocytes) > 1% indicates that a LEFT SHIFT is Present. LAB L100.2620 2.0-7.7 X10 3/uL Normal Absolute Neut 5.3 LAB L100.2720 0.83-4.51 X10 3/ul Normal Absolute Lymph 1.23 Performed By: #### L100.0100 #### [facility] [address] [place], [address] URINALYSIS, COMPLETE Collected: 02/26/2018 Status: F Source: [place] 12:55 AM [facility] REPOSITORY Order Comment: How was Urine Obtained? FURNITURE FINISHER TO SPECIFY TYPE CODE TESTS RESULT OUT OF RANGE REFERENCE UNITS LAB L400.3000 Yellow COLOR Normal Yellow LAB L400.3050 Clear Normal CLARITY Clear LAB L400.3200 Normal mg/dl High GLUCOSE, UR 100 LAB L400.3300 Negative mg/dL Normal BILIRUBIN URINE Negative LAB L400.3400 Negative mg/dl Normal KETONE UR Negative LAB L400.3465 1.002-1.030 Normal SP.GR. DIPSTX 1.015 LAB L400.3550 5.0 - 8.0 pH UR Normal 8.0 LAB L400.3600 Negative mg/dl High PROT DIPSTX 100 LAB L400.3700 Normal mg/dl Normal UROBILI Normal LAB L400.3750 Negative Normal NITRITE UR Negative LAB L400.3780 Negative /ul High 25 OCCULT BLOOD-UR LAB L400.3800 Negative /ul High LEUK 25 ESTERASE LAB L400.4050 0-5 /hpf WBC Normal 0-5 SEEN LAB L400.4100 0-5 /hpf Normal RBC-UA 0-5 SEEN LAB L400.4150 5-10 /hpf SQUAM > Normal EPI 100 SEEN LAB L400.4300 None Seen /hpf 0 Normal BACTERIA SEEN LAB L400.4350 <or=2+ /hpf 0 Normal MUCUS, URINE SEEN Performed By: #### L400.0001 #### [facility] [address] [place], [place], [address] ,URINE Collected: 02/26/2018 Status: F Source: [place] 12:55 AM [facility] REPOSITORY TYPE CODE TESTS RESULT OUT OF REFERENCE UNITS RANGE LAB L400.8000 Negative Normal HCGUQUAL Negative Result Comment: Very dilute urine specimens, as indicated by a low specific gravity, may not contain hobbies and crafts sales representative levels of hCG. If is still suspected, a first morning urine specimen should be collected 48 hours later and tested. Performed By: #### L400.7600 #### [facility] [address] [place], [address] Observed: 02/26/2018 Status: F Source: [place] CULTURE, URINE 12:55 AM [facility] REPOSITORY Urine Culture Culture exhibits no growth. Performed By: #### M100.0650 #### [facility] [address] [place], [address] CNPTOUTREACH Observed: 02/26/2018 Status: COMPLETED Source: [place] 12:00 AM [facility] REPOSITORY Patient Outreach (FAMPWS) KOURTNEY REZA ([id number]) 1975 F TRN Date Time Provider Department 02/26/18 CHIP TOLLIVER (RN) FAMPWS During your visit today, we recorded the following information about you: Chip Tolliver RN 02/26/2018 3:40 PM Signed PRIMARY CARE COORDINATION DISCHARGE Patient has been identified by name and date of : Yes Patient discharged from Primary Care Coordination: YES Goals met N/A Goals not met Patient engagement has not occurred despite ongoing education provided regarding the importance of following the physician plan of treatment Patient knowledgeable and confident in contacting Health Care Providers for questions or concerns: YES Reinforced with patient and/or caregiver that Primary Care Coordination may be reinitiated if a change in status warrants navigation readmission: Not applicable Discussed with: PCP Agree What was the Focus/Challenges addressed in Care Coordination? Education on Chronic Disease Management Care Gaps Appropriate level of care options - Utilization Disposition: Follow up with PCP Care Team Tab - End: YES Patient doesn't always answer PCC phone calls and doesn't follow through with showing for PCP appts. Pt skips dialysis treatments then is sent to ER or admitted to hospital. PCP agrees pt is not going to engage in her healthcare. CAYDEN Corcoran MD 02/27/2018 1:27 PM Signed agree Allergies As of Date: 02/26/2018 Noted Allergy Reaction LATEX 01/20/2006 2 - Rash NSAIDS (NON-STEROIDAL ANTI-INFLAM*05/12/2017 15 - Contraindication- Medical [place]* PERCOCET (OXYCODONE-ACETAMINOPHEN)10/28/2013 1 - Mental Status Change REGLAN (METOCLOPRAMIDE) 07/03/2013 11 - Vomiting Date Reviewed: 01/22/2018 Reviewed by: Petty Zhang - Fully Assessed Reason for Visit: Cuff Matcher- Other [1041] Cmt: Discharge from Primary Care Coordination Prescriptions as of 02/26/2018 Sig: CYCLOBENZAPRINE 10 MG TABLET Take 1 tablet by mouth three * NAPROXEN 500 MG TABLET Take 1 tablet by mouth twice * ISOSORBIDE MONONITRATE ER 60 * Take 1 tablet by mouth once d* PEN NEEDLE, DIABETIC 31 GAUGE* Use one needle per dose. 4 x * LISINOPRIL 20 MG TABLET Take 1 tablet by mouth once d* CALCIUM ACETATE 667 MG CAPSULE Take 1 capsule by mouth three* SODIUM BICARBONATE 650 MG TAB* 650 mg on T, Th and Sat per D* HYDRALAZINE 25 MG TABLET Take 1 tablet by mouth three * FAMOTIDINE 20 MG TABLET Take 1 tablet by mouth once d* CARVEDILOL 25 MG TABLET TAKE 1 TABLET BY MOUTH TWICE * FLUOXETINE 40 MG CAPSULE Take 1 capsule by mouth once * PROMETHAZINE 25 MG TABLET TAKE 1 TABLET BY MOUTH EVERY * OSTOMY SUPPLIES 4 X 4 WAFER Holister wafer Reorder #[id number] OSTOMY SUPPLIES Ostomy bag Holister brand #18* INSULIN ASPART U-100 100 UNI* 8 units three times a day wit* INSULIN GLARGINE (U-100) 100 * Inject 5 Units subcutaneously* ATORVASTATIN 10 MG TABLET Take 1 tablet by mouth once d* ASPIRIN 81 MG TABLET,DELAYED * Take 1 tablet by mouth once d* NYSTATIN 100,000 UNIT/GRAM TO* Apply 1 application to affect* ERGOCALCIFEROL (VITAMIN D2) 5* Take 1 capsule by mouth once * IRON, CARBONYL 45 MG TABLET Take 1 tablet by mouth three * DILTIAZEM CR 240 MG CAP Take 1 capsule by mouth once * LANCETS Test blood sugar(s) 4- 6 times* BLOOD SUGAR DIAGNOSTIC STRIPS Test blood sugar(s) 4- 6 times* PEN NEEDLE, DIABETIC 29 GAUGE* 1 Each once daily. BLOOD SUGAR DIAGNOSTIC STRIPS Test blood sugar(s) 4 times d* BLOOD-GLUCOSE METER KIT Freestyle LITE Meter Kit - Problem List As Of Date 02/26/2018 Noted Resolved VULVAL ABSCESS [N76.4] INVALID FOR*10/28/2013 Retinopathy due to secondary diabetes mellitus * Proteinuria [R80.9] Renal insufficiency [N28.9] 03/06/2017 Neuropathy [G62.9] INVALID FOR* HTN (hypertension) [I10] INVALID FOR* Anxiety [F41.9] INVALID FOR* More... Diabetes mellitus [E11.9] INVALID FOR* Cardiomyopathy, nonischemic [I42.8] INVALID FOR* Iron deficiency [E61.1] INVALID FOR* Anemia [D64.9] INVALID FOR* Scar condition and fibrosis of skin: Atrophic D*INVALID FOR* Rosacea [L71.9] INVALID FOR* Other acne [L70.8] INVALID FOR* Telangiectasia [I78.1] INVALID FOR* Irritant dermatitis [L24.9] INVALID FOR* Nodulocystic acne [L70.0] INVALID FOR* Dysfunctional uterine bleeding [N93.8] INVALID FOR* Vitamin D deficiency [E55.9] INVALID FOR* Asthma [J45.909] INVALID FOR* Obesity [E66.9] INVALID FOR* CHF (congestive heart failure) (HCC) [I50.9] INVALID FOR* Chronic renal failure, stage 5 (HCC) [N18.5] INVALID FOR* More... Complication of dialysis access insertion (HCC)*INVALID FOR* GABRIEL (obstructive sleep apnea) [G47.33] INVALID FOR* More... Diarrhea, functional [K59.1] INVALID FOR* More... Bloody stools [K92.1] INVALID FOR* More... C. difficile diarrhea [A04.72] INVALID FOR* More... Adenoma of left adrenal gland [D35.02] INVALID FOR* More... Encounter Status:Closed by CHIP TOLLIVER on 02/27/18 BEDSIDE GLUCOSE Collected: 02/25/2018 Status: F Source: [place] 10:02 PM [facility] REPOSITORY TYPE CODE TESTS RESULT OUT OF REFERENCE UNITS RANGE LAB L501.080 70-110 mg/dL High BEDSIDE GLU 168 Result Comment: MANAGEMENT OF PATIENT CARE PER NURSING PROTOCOL Performed By: #### L501.080 #### [facility] Point of Care [facility] [place] [id number] BEDSIDE GLUCOSE Collected: 02/25/2018 Status: F Source: [place] 5:02 PM [facility] REPOSITORY TYPE CODE TESTS RESULT OUT OF REFERENCE UNITS RANGE LAB L501.080 70-110 mg/dL High BEDSIDE GLU 150 Result Comment: MANAGEMENT OF PATIENT CARE PER NURSING PROTOCOL Performed By: #### L501.080 #### [facility] Point of Care [address] [place] [address] CONSULTATION Observed: 02/25/2018 Status: F Source: [place] 3:06 PM [facility] REPOSITORY [facility] Medical Records Department [address] [place] [address] Consultation 02/25/18 1457 MR#: [id number] Acct: [id number] Name: KOURTNEY REZA Rep #: [id number] : 1975 42 From: Nawaf Valdivia MD PCP: Ric Mccrary MD Status: ADM IN Location: [place] [address] Problem List (1) ESRD (end stage renal disease) on dialysis Status: Chronic Consultation - Renal PCP/ Referring MD: Requesting physician: [] Primary care physician: Ric Mccrary - History of Present Illness History of Present Illness: The patient is a 42 year old F ESRD on TTS. Patient does to [facility] HD center on TTS. Patient presented with chest pain, and headache that happened at the end of her HD session yesterday. In ED showed was found to have ischemic EKG changes and she is being evaluated by cardiology service . Patient is going to have cardiac cath tomorrow Now no chest pain No SOB . still has little headache ROS: 12 systems review is negative except what mentioned in HPI[] - Allergies Allergies: Allergies latex Allergy (Verified 02/08/18 14:54) Rash levofloxacin [From Levaquin] Adverse Reaction (Verified 02/08/18 14:54) PT CAN'T REMEMBER PT CAN'T REMEMBER metoclopramide HCl [From Reglan] Adverse Reaction (Verified 02/08/18 14:54) Nausea NSAIDS (Non-Steroidal Anti-Inflamma Adverse Reaction (Verified 02/08/18 14:54) kidney function oxycodone HCl [From Percocet] Adverse Reaction (Verified 02/08/18 14:54) HALLUCINATIONS - Current Medications Current Medications: Current Medications Acetaminophen (Tylenol) 650 mg PO Q6H PRN PRN PRN Reason: Mild Pain (1-3)/Temp > 100.7 F Last Admin: 02/25/18 14:51 Dose: 650 mg Alprazolam (Xanax) 0.5 mg PO DAILY PRN PRN Reason: ANXIETY Aspirin (Aspirin, Baby) 81 mg PO DAILY@0800 [facility] Last Admin: 02/25/18 08:31 Dose: 81 mg Atorvastatin Calcium (Lipitor) 20 mg PO QHS [facility] Last Admin: 02/24/18 22:03 Dose: 20 mg Calcium Acetate (Phoslo Gel Cap) 1,334 mg PO TIDCM [facility] Last Admin: 02/25/18 11:25 Dose: 1,334 mg Carvedilol (Coreg) 25 mg PO BID [facility] Last Admin: 02/25/18 08:31 Dose: 25 mg Clopidogrel Bisulfate (Plavix) 75 mg PO DAILY [facility] Dextrose (D50w Syringe) 0 gm IV X1 PRN; Protocol PRN Reason: Hypoglycemia Dicyclomine HCl (Bentyl) 20 mg PO 4X/DAY PRN PRN PRN Reason: distress Ergocalciferol (Vitamin D) 50,000 unit PO FR [facility] Fluoxetine HCl (Prozac) 40 mg PO DAILY [facility] Last Admin: 02/25/18 08:32 Dose: 40 mg Glucagon () 1 mg IM .X1 PRN PRN Reason: Hypoglycemia Heparin Sodium (Porcine) (Heparin Na) 5,000 unit SC Q8 [facility] Last Admin: 02/25/18 14:52 Dose: 5,000 units Sodium Chloride () 1,000 mls @ 15 mls/hr IV .Q48H [facility] PRN Reason: KVO Insulin Glargine (Lantus (Bkc)) 5 units SC QHS [facility] Last Admin: 02/24/18 22:03 Dose: 5 units Insulin Human Lispro (Humalog Kwikpen (Bkc)) 0 unit SQ TIDAC [facility] PRN Reason: Protocol Last Admin: 02/25/18 11:23 Dose: Not Given Insulin Human Lispro (Humalog Kwikpen (Bkc)) 10 unit SC TIDCM [facility] Last Admin: 02/25/18 11:26 Dose: 10 units Isosorbide Mononitrate (Imdur) 60 mg PO DAILY [facility] Last Admin: 02/25/18 08:31 Dose: 60 mg Lisinopril (Zestril) 20 mg PO DAILY [facility] Last Admin: 02/25/18 08:32 Dose: 20 mg Magnesium Hydroxide (Milk Of Magnesia) 30 ml PO DAILY PRN PRN Reason: Constipation Nitroglycerin (Nitrostat) 0.4 mg SUBLINGUAL Q5M PRN PRN Reason: CHEST PAIN Nutritional Formula (Lactose Free) (Glucerna Shake) 120 ml PO TIDCM [facility] Last Admin: 02/25/18 11:19 Dose: Not Given Ondansetron HCl (Zofran Odt) 4 mg PO Q8H PRN PRN PRN Reason: NAUSEA Ondansetron HCl (Zofran) 4 mg IV Q8H PRN PRN PRN Reason: NAUSEA Last Admin: 02/24/18 22:04 Dose: 4 mg Pantoprazole Sodium (Protonix) 20 mg PO DAILY [facility] Last Admin: 02/25/18 08:32 Dose: 20 mg Promethazine HCl (Phenergan Tablet) 25 mg PO Q6H PRN PRN PRN Reason: NAUSEA Last Admin: 02/25/18 04:34 Dose: 25 mg Sodium Bicarbonate (Sodium Bicarbonate) 650 mg PO TuThSa@1000 [facility] Sodium Chloride () 5 - 30 ml IV UD PRN PRN Reason: SALINE FLUSH Last Admin: 02/25/18 11:25 Dose: 10 ml - Past Medical History Past Medical History (Chronic Problems): Chronic Problems ESRD (end stage renal disease) on dialysis (Chronic) Decubitus ulcer, stage III (Chronic) CAD (coronary artery disease) (Chronic) Anemia, chronic disease (Chronic) Pilonidal cyst with abscess (Chronic) GABRIEL (obstructive sleep apnea) (Chronic) ESRD on dialysis (Chronic) Depression (Chronic) Anxiety (Chronic) HTN (hypertension) (Chronic) Nonischemic cardiomyopathy (Chronic) With ejection fraction 45 - 50%; with angiographically normal coronary arteries 05/2013; follows up with Dr. Underwood Diabetes mellitus type 1 (Chronic) Hyperlipidemia (Chronic) Obesity (BMI 30.0-34.9) (Chronic) Gastroparesis (Chronic) - Past Surgical History Surgical History: appendectomy, hysterectomy - and BSO, - - c-sections, L breast I+D for abscess, fistula placement LUE, L ankle surgery, appendectomy, PDA repair. Excision pilonidal cyst ulcer about 4 years ago. Colostomy placed due to rectal abscess/wound, patent ductus repair - Social History Smoking Status: Current every day smoker Alcohol: None Drugs: None - Family History Maternal History Items: Cancer, COPD, Diabetes, Hypertension, Renal Disease, Stroke Paternal History Items: Diabetes Sibling History Items: Cancer, Diabetes Patient Problems: Active and Suspected Problems Chest pain (Acute) Migraine (Acute) Metabolic encephalopathy (Acute) Abnormal electrocardiogram [ECG] [EKG] (Acute) CAD (coronary artery disease) (Acute) - Physical Exam General: Alert, Oriented x3 HEENT: Atraumatic Oral: Moist Mucosa Neck: Supple, No JVD Lungs: Clear to auscultation, Normal air movement Cardiovascular: Regular rate, Regular Rhythm, Normal S1, Normal S2 Abdomen: Bowel Sounds Present, Soft, Non Tender Extremities: No clubbing, No cyanosis, No edema Skin: No rashes Musculoskeletal: No Tenderness to Palpation of Joints or Extremities Lymphatic: No Cervical, Supraclavicular, or Inguinal Adenopathy Neurological: Cranial nerves II-XII grossly intact, Neuro grossly intact Comment: HD access is LUE AVF with pseudoaneurysm. + T and + B Vital Signs Temp Pulse Resp BP Pulse Ox 97.9 F 77 15 167/87 H 95 02/25/18 14:15 02/25/18 14:15 02/25/18 14:15 02/25/18 14:15 02/25/18 14:47 Oxygen Flow Rate (L/min) 2 Oxygen Delivery Method Room Air Weight: 87.7 kg Body Mass Index (BMI) 31.1 Intake and Output for Last 24 Hours Intake Total 240 / 240 850 / 850 Output Total 3 / 3 Balance 240 / 240 847 / 847 Laboratory Tests Past 24 Hrs Sodium 141 Potassium 4.7 POC Glucose POC Glucose 126 H 177 H 182 H POC Glucose 286 H Assessment/Plan All Active Problems Chest pain (Acute) Migraine (Acute) Metabolic encephalopathy (Acute) Abnormal electrocardiogram [ECG] [EKG] (Acute) CAD (coronary artery disease) (Acute) Chest pain (Acute) Tooth abscess (Resolved) Intractable nausea and vomiting (Resolved) Pneumonia (Resolved) Pulmonary edema (Resolved) Hyperkalemia (Resolved) Atypical chest pain (Resolved) Acute hypoxic respiratory failure (Resolved) Pulmonary edema (Resolved) Clostridium difficile enterocolitis (Resolved) Necrotizing myositis (Resolved) S/P repair of PDA (patent ductus arteriosus) (Resolved) Dysmenorrhea (Resolved) Hx of necrotizing fascIItis (Resolved) Iron deficiency anemia due to chronic blood loss (Resolved) Systolic congestive heart failure (Resolved) 2- ESRD on TTS. Patient goes to [facility] HD [place] and Dr. Martinez is her hot die picker Last HD session 02/24 with 0.6 L UF HD access LUE AVF Next HD session 02/27 2- HTN: BP is well controlled 3- Anemia: Hgb 12. No need of ESTUARDO 4- Chest pain. cardiology is following. possible cardiac cath tomorrow Renal team will continue to follow NAWAF VALDIVIA MD 02/25/18 1506 <Electronically signed by Nawaf Valdivia MD> Date Nawaf Validvia MD Cosigner Signature (if applicable): Date CC: Nawaf Valdivia MD; Kaitlynn Green MD; Ric Mccrary MD Signed CONSULTATION Observed: 02/25/2018 Status: F Source: [place] 12:54 PM [facility] REPOSITORY [facility] Medical Records Department [address] [place] [address] Consultation 02/25/18 1232 MR#: [id number] Acct: [id number] Name: KOURTNEY REZA Rep #: [id number] : 1975 42 From: Kaitlynn Green MD PCP: Ric Mccrary MD Status: ADM IN Location: [place] [id number] Problem List (1) Chest pain Status: Acute (2) Abnormal electrocardiogram [ECG] [EKG] Status: Acute (3) CAD (coronary artery disease) Status: Acute (4) Hyperlipidemia Status: Chronic Qualifiers: Hyperlipidemia type: unspecified (5) HTN (hypertension) Status: Chronic Qualifiers: Hypertension type: essential hypertension (6) Diabetes mellitus type 1 Status: Chronic Qualifiers: Diabetes mellitus complication status: with unspecified complications Qualified Code(s): E10.8 - Type 1 diabetes mellitus with unspecified complications (7) ESRD on dialysis Status: Chronic (8) S/P repair of PDA (patent ductus arteriosus) Status: Resolved Comment: At young age Reason for Consult Date of Consultation: 02/25/18 History of Present Illness: The patient is a 42 year old white female with a past medical history which has included hyperlipidemia, hypertension, diabetes mellitus, end-stage renal disease on chronic hemodialysis, status post a remote PDA repair, as well as a history of non-angiographically significant CAD-LAD disease, who presents for recurrent chest pain and recurrent abnormal electrocardiogram for additional cardiovascular evaluation. She has been previously evaluated by Dr. Underwood of the [facility] with both noninvasive and invasive studies. It appears that in May 2013 she underwent diagnostic cardiac catheterization. At that time per the report the left main coronary artery was patent, the LAD had mid 30-40% stenosis, the LCx was patent, and the RCA was considered large and dominant and patent. The left ventricle was considered to have mild global dysfunction with an LVEF of 45-50%. She was continued on medical management. She has been evaluated by the [facility] ED and hospitalist staff in the interim. This is been for recurrent chest discomfort and ECG changes. Most recently she underwent evaluation with a stress echocardiogram. According to the report this was reported as a normal, adequate, dobutamine echocardiogram considered negative for ischemia by ECG and echocardiographic criteria. It was noted the patient had baseline severe inferior posterior hypokinesis which did not improve with infusion. A hypertensive blood pressure response was noted to dobutamine. It was noted there was decreased sensitivity due to failure to reach target heart rate. The patient also required additional contrast imaging based upon poor echocardiographic windows. The patient presented back to the emergency department based upon recurrent chest discomfort. She stated she felt as if someone was sitting on her chest. It was a heavy pressure sensation. She did not note any significant change in her respiratory status. She did not complain of associated nausea, emesis, or diaphoresis. There was no near syncope or syncope. She states she was treated with nitrates and did improve. In the emergency department her troponin I level was negative. Her ECG demonstrated sinus rhythm with T-wave changes in the anterior, lateral, and inferior distribution raising concerns of ischemia. Apparently these changes have waxed and waned in comparison to previous electrocardiograms. The patient was placed in the ICU for further evaluation and care. At the present time she feels better. Her troponin I level has remained negative. Her ECG changes appear less prominent. She was also noted to be somewhat hypokalemic upon admission, which has occurred in the past, and thus she underwent potassium supplement. She has denied ongoing orthopnea or PND or peripheral pitting edema. She continues with her hemodialysis on a Monday, , Monday basis. [] Past Medical History Allergies/Adverse Reactions: Allergies latex Allergy (Verified 02/08/18 14:54) Rash levofloxacin [From Levaquin] Adverse Reaction (Verified 02/08/18 14:54) PT CAN'T REMEMBER PT CAN'T REMEMBER metoclopramide HCl [From Reglan] Adverse Reaction (Verified 02/08/18 14:54) Nausea NSAIDS (Non-Steroidal Anti-Inflamma Adverse Reaction (Verified 02/08/18 14:54) kidney function oxycodone HCl [From Percocet] Adverse Reaction (Verified 02/08/18 14:54) HALLUCINATIONS Home Medications: Ambulatory Orders Medication Instructions Recorded Aspirin [Aspirin, Baby] 81 mg PO DAILY@0800 01/26/16 Calcium Acetate [Phoslo Gel Cap] 1,334 mg PO TIDCM 01/26/16 Ergocalciferol [Vitamin D] 50,000 unit PO FR 01/26/16 Past Medical History (Chronic Problems): Chronic Problems ESRD (end stage renal disease) on dialysis (Chronic) Decubitus ulcer, stage III (Chronic) CAD (coronary artery disease) (Chronic) Anemia, chronic disease (Chronic) Pilonidal cyst with abscess (Chronic) GABRIEL (obstructive sleep apnea) (Chronic) ESRD on dialysis (Chronic) Depression (Chronic) Anxiety (Chronic) HTN (hypertension) (Chronic) Nonischemic cardiomyopathy (Chronic) With ejection fraction 45 - 50%; with angiographically normal coronary arteries 05/2013; follows up with Dr. Underwood Diabetes mellitus type 1 (Chronic) Hyperlipidemia (Chronic) Obesity (BMI 30.0-34.9) (Chronic) Gastroparesis (Chronic) Psychiatric History: No pertinent psych hx - *Family History Maternal History Items: Cancer, COPD, Diabetes, Hypertension, Renal Disease, Stroke Paternal History Items: Diabetes Sibling History Items: Cancer, Diabetes Smoking Status: Current every day smoker Tobacco Use: Cigarettes Alcohol: None Drugs: None Subjectve: This is a 42-year-old white female who appears to be resting comfortably at the moment in no acute distress. Objective: Vital Signs Temp Pulse Resp BP Pulse Ox 97.7 F L 81 16 147/79 H 94 02/25/18 08:15 02/25/18 11:39 02/25/18 08:15 02/25/18 08:15 02/25/18 08:15 Oxygen Flow Rate (L/min) 2 Oxygen Delivery Method Room Air Weight: 193 lb 5.526 oz Body Mass Index (BMI) 31.1 Intake and Output for Last 24 Hours Intake Total 240 / 240 360 / 360 Balance 240 / 240 360 / 360 General: Awake, Alert, Oriented x 3, Cooperative, No Acute Distress HEENT: Atraumatic, Normocephalic, PERRL, EOMI, Sclera Non Icteric Oral: Moist Mucosa Neck: Supple, Good ROM, No JVD Lungs: Clear to auscultation Cardiovascular: Regular Rhythm, Normal S1, Normal S2 Abdomen: Bowel Sounds Present, Soft, Non Tender Extremities: No Cyanosis, No Clubbing, No edema Psych/Mental Status: Appropriate 02/24/18 18:38: Troponin I < 0.015 02/24/18 21:31: Troponin I < 0.015 02/25/18 05:30: Sodium 141, Potassium 4.7, Chloride 97 L, Carbon Dioxide 34.0 H, Anion Gap 10, BUN 23 H, Creatinine 4.58 H, Est GFR (MDRD) Af Amer 13 L, Est GFR (MDRD) Non-Af 11 L, BUN/Creatinine Ratio 5.0 L, Glucose 208 H, Calcium 8.4 L, Total Bilirubin 0.30, Triglycerides 131, Cholesterol 120, LDL Cholesterol 56, VLDL Cholesterol 26, HDL Cholesterol 38 L Rhythm: Sinus rhythm EKG: As noted above ECHO: 06/12/2013: Left ventricle reported at top normal LV size with moderate concentric LVH and left ventricular regional wall motion abnormalities with an LVEF of 40% with no valvular heart disease reported and decreased diastolic compliance Stress Test: As noted above Cardiac Cath: As noted above CXR: Preliminary evaluation: No acute cardiopulmonary disease process appreciated: Please see official report Brain CT scan: Per radiology: No acute changes: Please see official report Assessment/Plan 1. Chest pain The patient has recurrent chest pain. She does have some features concerning for angina pectoris. This is superimposed upon her cardiovascular risk factors and a history of underlying CAD in the LAD distribution-previously considered non-angiographically significant and a recent dobutamine stress echocardiogram which was considered negative- at the heart rate achieved. At the present time the patient undergoes cardiac enzymes which have been negative. Her ECG changes have waxed and waned. She has continued medical therapy. She will be considered for further evaluation with diagnostic cardiac catheterization to reassess her underlying CAD status for the need for further diagnostic studies and/or therapeutic intervention. 2. Abnormal electrocardiogram The patient does have an abnormal electrocardiogram. It does raise concerns of possible CAD with myocardial ischemia. She has also undergone evaluation with a brain CT for any obvious evidence of WEBSITE [employer]JECT [employer]NAGER etiology that may contribute to elective cardiographic changes. She was noted to be hypokalemic and her potassium was supplemented. From a cardiac standpoint she will continue to be monitored. She will continue medical management. She will undergo evaluation as noted above. 3. CAD She does have an element of CAD. She has been treated medically. Again based upon her recurrent symptoms, recurrent elective cardiographic changes, despite her recent negative dobutamine stress echocardiogram-at the heart rate achieved, it would be reasonable to consider the patient for reevaluation with diagnostic cardiac catheterization. The procedure and risks were discussed with her and she was agreeable to this approach. 4. Hyperlipidemia The patient will continue medical management. 5. Hypertension The patient's blood pressures will need to be followed. Her medications may need to be adjusted in and around the time of her dialysis therapy to assist with blood pressure control. 6. Diabetes mellitus The patient will continue medical management per internal medicine. 7. End-stage renal disease on chronic hemodialysis The patient will need to be followed by nephrology for continued hemodialysis during her hospitalization. 8. Status post PDA repair-remote The patient reports a history of a PDA repair-remote. There has been no comment of any concerns regarding an ongoing PDA issue on her most recent noninvasive studies. Comment: The patient's case has been discussed with the patient and previously with the [facility] emergency department staff. This note was generated with [employer] software. It may contain incorrect words, spelling, and punctuation that were not noted in checking the note before signing. 08/05/18 1254 <Electronically signed by Kaitlynn Green MD> Date Kaitlynn Green MD Cosigner Signature (if applicable): Date CC: Wm Underwood MD; Kaitlynn Green MD; Ric Mccrary MD Signed BEDSIDE GLUCOSE Collected: 02/25/2018 Status: F Source: [place] 11:22 AM [facility] REPOSITORY TYPE CODE TESTS RESULT OUT OF REFERENCE UNITS RANGE LAB L501.080 70-110 mg/dL High BEDSIDE GLU 126 Result Comment: MANAGEMENT OF PATIENT CARE PER NURSING PROTOCOL Performed By: #### L501.080 #### [facility] Point of Care [address] [place] [address] BEDSIDE GLUCOSE Collected: 02/25/2018 Status: F Source: [place] 6:39 AM [facility] REPOSITORY TYPE CODE TESTS RESULT OUT OF REFERENCE UNITS RANGE LAB L501.080 70-110 mg/dL High BEDSIDE GLU 177 Result Comment: MANAGEMENT OF PATIENT CARE PER NURSING PROTOCOL Performed By: #### L501.080 #### [facility] Point of Care [address] [place] [address] COMPREHENSIVE METABOLIC Collected: 02/25/2018 Status: F Source: [place] PROFIL 5:30 AM [facility] [place] REPOSITORY TYPE CODE TESTS RESULT OUT OF RANGE REFERENCE UNITS LAB L501.0100 74-106 mg/dL High GLU 208 Result Comment: Glucose result greater than or equal to 200 mg/dL suggests DIABETES MELLITUS per A.D.A. criteria. Please note revised GLUCOSE reference range effective 2017. LAB L501.1000 7-18 mg/dL High BUN 23 LAB L501.1100 0.55-1.02 mg/dL High CREAT,SERUM 4.58 Result Comment: The validity of the calculated GFR AND GFRAA in patients over 70 years has not been determined. Clinical correlation is essential. LAB L501.1110 >60 mL/min Low EST GFR 11 Result Comment: Non- GFR Calc LAB L501.1115 >60 mL/min Low EST GFR - AA 13 Result Comment: GFR Calc LAB L501.1255 ml/min Normal Estimated CRCL 14.67 LAB L501.1300 10-20 RATIO Low BUN/CRE 5.0 LAB L501.1500 6.4-8. g/dL Normal 2 T PROT 7.4 LAB L501.1800 3.2-5. g/dL Low 0 ALB 3.0 LAB L501.1950 2.2-4. g/dL High 2 GLOB 4.4 LAB L501.2000 0.9-2. RATIO Low 4 A/G 0.7 LAB L501.2200 8.5-10 mg/dL Low .1 CA 8.4 LAB L501.4100 15-37 U/L Normal AST 19 LAB L501.4305 45-117 U/L Normal ALK P 93 LAB L501.4405 13-56 U/L Normal ALT 23 LAB L501.4600 0.20-1 mg/dL Normal .00 T BILI 0.30 LAB L501.5300 136-14 mmol/L Normal 5 NA 141 LAB L501.5600 3.5-5. mmol/L Normal 1 K 4.7 LAB L501.5900 98-107 mmol/L Low CL 97 LAB L501.6100 21.0-3 mmol/L High 2.0 CO2 34.0 LAB L501.6200 5-15 Normal GAP 10 Performed By: #### L500.4050, L500.4100 #### [facility] [address] [place], [address] LIPID PROFILE Collected: 02/25/2018 Status: F Source: [place] 5:30 AM [facility] REPOSITORY TYPE CODE TESTS RESULT OUT OF RANGE REFERENCE UNITS LAB L501.4900 200 mg/dL Normal CHOL 120 Result Comment: <200 mg/dL Desirable 200-240 mg/dL Borderline >240 mg/dL High Risk LAB L501.5000 mg/dL Normal TRIG 131 Result Comment: The drugs N-Acetylcysteine and Metamizole may falsely depress this assay. Serum Triglycerides Reference Interval Normal <150 mg/dL Borderline high 150 - 199 mg/dL High 200 - 499 mg/dL Very High > or = 500 mg/dL LAB L501.6400 mg/dL Low HDL 38 Result Comment: The drugs N-Acetylcysteine and Metamizole may falsely depress this assay. Reference Range HDL <40 mg/dL Low HDL Cholesterol HDL >or= 60 mg/dL High HDL Cholesterol LAB L501.6500 0-130 mg/dL Normal LDL 56 LAB L501.6600 5-40 mg/dL Normal VLDL 26 Performed By: #### L500.4050, L500.4100 #### [facility] [address] [place], [address] EMERGENCY DEPARTMENT Observed: 02/24/2018 Status: F Source: [place] SUMMARY 10:26 PM [facility] REPOSITORY [facility] Medical Records Department [address] [place] [address] Emergency Department Summary 02/24/18 1532 MR#: [id number] Acct: [id number] Name: KOURTNEY REZA Rep #: [id number] : 1975 42 From: Anila Bartlett MD PCP: Ric Mccrary MD Status: ADM IN - ER Visit Summary Date of Service: 02/24/18 Chief Complaint: Headache and chest pain History of Present Illness: The patient is a 42 F who states that she had a generalized headache this morning that persisted throughout dialysis. She reported nausea and light sensitivity. She develops chest pressure during dialysis, similar to chest pain that prompted her recent admission and stress test. She was given isosorbide on discharge at that time and she states her symptoms were controlled until today. Patient was admitted February 08. On the she had a normal stress echo. Patient does have known history of coronary artery disease, diabetes, hypertension, high cholesterol, end-stage renal disease on dialysis, and nonischemic cardiomyopathy. Physical Examination: Vital signs are unremarkable. Patient's lying in bed no acute distress. Head neck examination is unremarkable. Heart is regular rate and rhythm. Lung sounds are clear. Abdomen is soft and nontender. Lower external examination was no calf tenderness. Neuro exam is nonfocal. Test Results: EKG on arrival reveals sinus rhythm at 70 bpm with anterior lateral and inferior T-wave inversions. Patient had similar T inversions on admission on February 08, but was improved on the repeat study February 09. CBC significant only for platelet count of 114,000. Chemistry studies are significant for potassium of 3.3 and a creatinine of 3.02. Her glucose is 312. Troponin is less than 0.015. Two-view chest x-ray is unremarkable. CT the head is unremarkable. Emergency Department Course and Treatment: Patient received morphine and Zofran here for chest pain and headache. She was given 40 mEq of potassium chloride. Due to continued headache she is given small doses of Toradol, Compazine, and Benadryl. I spoke with Dr. Green, on-call for Dr. Underwood. At this time it is unclear whether the EKG changes are related to her low potassium. Her potassium will be corrected and she will be observed in the hospital. She may or may not require heart cath. Treatment Plan: [] Disposition: Admit Impression: 1. Chest pain 2. EKG changes 3. Cephalgia 4. Hypokalemia This note was generated with [employer] dictation software. It may contain incorrect words, spelling, and punctuation that were not noted in review of the chart prior to signing ED Disposition - Plan for ED Patient: Chief Complaint: Chest Pain Referrals: Ric Mccrary MD [Primary Care Provider] - What to do if you have Problems For any increased pain, shortness of breath, bleeding, nausea or vomiting, chest pain, or any unexpected problems, contact your Primary Care Provider. Call [facility] ([phone]) or report to the closest Emergency Room. Call 911 if necessary. 02/24/18 2226 <Electronically signed by Anila Bartlett MD> Date Anila Bartlett MD Cosigner Signature (If Indicated): Date CC: Ric Mccrary MD BEDSIDE GLUCOSE Collected: 02/24/2018 Status: F Source: [place] 9:42 PM [facility] [place] REPOSITORY TYPE CODE TESTS RESULT OUT OF REFERENCE UNITS RANGE LAB L501.080 70-110 mg/dL High BEDSIDE GLU 182 Result Comment: MANAGEMENT OF PATIENT CARE PER NURSING PROTOCOL Performed By: #### L501.080 #### [facility] Point of Care [address] [place], [place] [address] TROPONIN-I Collected: 02/24/2018 Status: F Source: [place] 9:31 PM [facility] REPOSITORY Order Comment: 'TROP' Serial specimen #1, #2 or #3: 2 TYPE CODE TESTS RESULT OUT OF RANGE REFERENCE UNITS LAB L501.4010 <0.045 ng/mL Normal < 0.015 TROPONIN-I Result Comment: TROPONIN-I EXPECTED VALUES <0.045 Negative 0.045 - 0.590 Consistent with Cardiac Damage > OR = 0.600 Critical Value Not every elevated troponin is indicative of [place]. These values should be used with clinical judgement in examining the patient's clinical picture for diagnosis. To establish a diagnosis of [place] versus myocardial injury, there must be a demonstrated rise and/or fall in the troponin values, in addition to ischemic symptoms, EKG changes, new regional wall motion abnormality, and/or angiographical evidence. PLEASE NOTE: REFERENCE RANGES EDITED 17 Performed By: #### L501.4010 #### [facility] [address] [place] [address]. [place], [place], [address] TROPONIN-I Collected: 02/24/2018 Status: F Source: [place] 6:38 PM [facility] REPOSITORY Order Comment: 'TROP' Serial specimen #1, #2 or #3: 2 TYPE CODE TESTS RESULT OUT OF RANGE REFERENCE UNITS LAB L501.4010 <0.045 ng/mL Normal < 0.015 TROPONIN-I Result Comment: TROPONIN-I EXPECTED VALUES <0.045 Negative 0.045 - 0.590 Consistent with Cardiac Damage > OR = 0.600 Critical Value Not every elevated troponin is indicative of [place]. These values should be used with clinical judgement in examining the patient's clinical picture for diagnosis. To establish a diagnosis of [place] versus myocardial injury, there must be a demonstrated rise and/or fall in the troponin values, in addition to ischemic symptoms, EKG changes, new regional wall motion abnormality, and/or angiographical evidence. PLEASE NOTE: REFERENCE RANGES EDITED 17 Performed By: #### L501.4010 #### [facility] [address] [place], [address] BEDSIDE GLUCOSE Collected: 02/24/2018 Status: F Source: [place] 6:33 PM [facility] [place] REPOSITORY TYPE CODE TESTS RESULT OUT OF REFERENCE UNITS RANGE LAB L501.080 70-110 mg/dL High BEDSIDE GLU 286 Result Comment: MANAGEMENT OF PATIENT CARE PER NURSING PROTOCOL Performed By: #### L501.080 #### [facility] Point of Care [address] [place] [address] HISTORY AND PHYSICAL Observed: 02/24/2018 Status: F Source: [place] EXAM 5:52 PM [facility] REPOSITORY [facility] Medical Records Department [address] [place] [address] History and Physical 02/24/18 1739 MR#: [id number] Acct: [id number] Name: KOURTNEY REZA Rep #: [id number] : 1975 42 From: Roberto Roman DO PCP: Ric Mccrary MD Status: REG ER Y Location: ED Problem List (1) Chest pain Status: Acute (2) Migraine Status: Acute (3) Metabolic encephalopathy Status: Acute History of Present Illness Date of Admission: 02/24/18 Chief Complaint: chest pain. confusion The patient is a 42 year old F who is in normal state of health up until today where patient started having a headache. Patient is also having confusion as well. Patient was in dialysis and then about 45 minutes left remaining, experienced midsternal chest pain. Chest pain did not radiate. Patient did feel nauseated with this but did not vomit. Dialysis was stopped early with roughly 45 minutes remaining patient stated the chest pain lasted for about 30 minutes and then resolved. And patient was brought to the emergency room. In the emergency room, patient had an EKG that showed some ST depressions in the lateral leads as well her leads. Dr. Green, cardiology, was contacted will further evaluate the patient determined patient requires a heart catheterization. Patient did have chest pain last month and had underwent a stress test on the which was negative. Patient was started on isosorbide at that time. Patient said that it did seem to help her chest pain. Patient also had some confusion today. Patient is being brought from the dialysis center patient was not able to figure out how to take off her seatbelt. Patient states she never felt like that before. Patient had a head CT in the emergency room that was unremarkable. [] Past Medical History Past Medical History (Chronic Problems): Chronic Problems ESRD (end stage renal disease) on dialysis (Chronic) Decubitus ulcer, stage III (Chronic) CAD (coronary artery disease) (Chronic) Anemia, chronic disease (Chronic) Pilonidal cyst with abscess (Chronic) GABRIEL (obstructive sleep apnea) (Chronic) ESRD on dialysis (Chronic) Depression (Chronic) Anxiety (Chronic) HTN (hypertension) (Chronic) Nonischemic cardiomyopathy (Chronic) With ejection fraction 45 - 50%; with angiographically normal coronary arteries 05/2013; follows up with Dr. Underwood S/P repair of PDA (patent ductus arteriosus) (Chronic) At young age Diabetes mellitus type 1 (Chronic) Hyperlipidemia (Chronic) Obesity (BMI 30.0-34.9) (Chronic) Gastroparesis (Chronic) Allergies latex Allergy (Verified 02/08/18 14:54) Rash levofloxacin [From Levaquin] Adverse Reaction (Verified 02/08/18 14:54) PT CAN'T REMEMBER PT CAN'T REMEMBER metoclopramide HCl [From Reglan] Adverse Reaction (Verified 02/08/18 14:54) Nausea NSAIDS (Non-Steroidal Anti-Inflamma Adverse Reaction (Verified 02/08/18 14:54) kidney function oxycodone HCl [From Percocet] Adverse Reaction (Verified 02/08/18 14:54) HALLUCINATIONS Home Medications: Ambulatory Orders Medication Instructions Recorded Aspirin [Aspirin, Baby] 81 mg PO DAILY@0800 01/26/16 Calcium Acetate [Phoslo Gel Cap] 1,334 mg PO TIDCM 01/26/16 Ergocalciferol [Vitamin D] 50,000 unit PO FR 01/26/16 Psychiatric History: No pertinent psych hx Smoking Status: Unknown if ever smoked Tobacco Use: Non-smoker Alcohol: None Drugs: None - *Family History Maternal History Items: Cancer, COPD, Diabetes, Hypertension, Renal Disease, Stroke Paternal History Items: Diabetes Sibling History Items: Cancer, Diabetes Review of Systems Constitutional: Reports: Anorexia, Chills. Denies: Fever Eyes: Denies: Blurred vision, Double vision HEENT: Denies: Head Aches, Sinus Congestion, Sinus Drainage Cardiovascular: Reports: Chest Pain. Denies: Edema, Light Headedness Respiratory: Denies: Cough, Shortness of Breath, Shortness of breath at rest, Sputum production Gastrointestinal: Reports: Nausea. Denies: Abdominal Pain, Vomiting Genitourinary: Denies: Dysuria Musculoskeletal: Denies: Joint Pain, Joint Tenderness Skin: Denies: Rash, Wounds Neurological: Reports: Confusion, Headaches. Denies: Balance problems, Blurred vision, Double vision, Change in Speech Psychiatric: Denies: Anxiety, Depression Endocrine: Denies: Change in Body Habitus, Heat/ Cold Intolerance Hematologic/ Lymphatic: Reports: Easy Bruising - 12 bruising on her calf for unknown etiology.. Denies: Easy Bleeding, Hx of blood clot Comment: All review of systems are negative except as mentioned in the history of present illness and the other review of systems. VTE Information - Inpt Only VTE Present on Admission: No VTE Mechan Device Prophylaxis: None VTE Pharm Prophylaxis ordered?: Yes Patient Problems: Active and Suspected Problems Chest pain (Acute) Migraine (Acute) Metabolic encephalopathy (Acute) - Physical Exam General: Alert, Cooperative, No apparent distress HEENT: Atraumatic, PERRLA, EOMI Oral: Moist Mucosa, No Gingival or Mucosal Lesions/ Ulcerations Neck: No Nodes, Thyroid Normal Size and Texture Lungs: Clear to auscultation, Normal air movement, No rhonchi, No wheeze Cardiovascular: Regular rate, Regular Rhythm, Normal S1, Normal S2, No murmurs Abdomen: Bowel Sounds Present, Soft, Non Tender, Non-Distended, No Hepato-splenomegaly, Obese Extremities: No edema, No Calf Tenderness Skin: No rashes, No breakdown Musculoskeletal: No Tenderness to Palpation of Joints or Extremities, No Muscle Wasting Neurological: Neuro grossly intact, Sensory exam intact to light touch and pain, Coordination normal Psych/Mental Status: Flat Affect Vital Signs Temp Pulse Resp BP Pulse Ox 36.7 C 66 15 152/70 H 98 02/24/18 15:03 02/24/18 17:33 02/24/18 17:33 02/24/18 17:33 02/24/18 17:33 Oxygen Delivery Method Room Air Weight: 86.183 kg Body Mass Index (BMI) 30.7 Finger Stick Blood Glucose 118 Laboratory Tests Past 24 Hrs WBC 5.6 RBC 3.83 L Hgb 12.1 Hct 38.5 MCV 100.5 H MCH 31.6 MCHC 31.4 L RDW 16.6 H RDW Differential 60.2 H EKG reviewed and showed normal sinus rhythm. ST depressions in inferior as well as lateral leads. Clinical Impression(s) from Imaging Studies Brain CT 02/24/18 15:13 IMPRESSION: Normal unenhanced CT scan of the brain and unchanged since 06/08/2017. Electronically Signed: Woodrow Sun MD at 15:51 EDT , Service support , Chest X-Ray 02/24/18 15:27 IMPRESSION: No acute cardiopulmonary abnormalities. Electronically Signed: Anila Le MD at 16:18 EDT Tel Direct: [phone], Service support , Assessment/Plan All Active Problems Chest pain (Acute) Migraine (Acute) Metabolic encephalopathy (Acute) Chest pain (Acute) Tooth abscess (Resolved) Intractable nausea and vomiting (Resolved) Pneumonia (Resolved) Pulmonary edema (Resolved) Hyperkalemia (Resolved) Atypical chest pain (Resolved) Acute hypoxic respiratory failure (Resolved) Pulmonary edema (Resolved) Clostridium difficile enterocolitis (Resolved) Necrotizing myositis (Resolved) Dysmenorrhea (Resolved) Hx of necrotizing fascIItis (Resolved) Iron deficiency anemia due to chronic blood loss (Resolved) Systolic congestive heart failure (Resolved) 1. Unstable angina * Medical management for now. Patient is no longer having any chest pain * Cardiology will be on consultation as patient already went a stress test on February 09 which was negative * Cycle troponins * Patient may require a left heart catheterization. Patient aware that she may not be able to have a left heart catheterization, if that is what is determined until the 2. Migraine * Patient receiving a cocktail medications currently in the emergency room * Hold off in any additional agents at this time unless it recurs * The patient has recurrence of her migraine with avoid triptan's in the light of the chest pain/unstable angina workup 3. Metabolic encephalopathy * Patient had some self-reported confusion of not being able to operate a seatbelt. Do not appreciate any focal deficits. Feels prior combination patient's migraine her chest symptoms and possible also some metabolic derangements as well * Head CT was negative * If patient has continued recurrence and may change and can do additional workup later point but not. 4. End-stage renal disease * Patient completed dialysis with exception of the last 45 minutes today * Depending on patient's length states she does require heart catheterization will consult nephrology. I would hold off on constant right now it is unclear how long the patient will require further hospitalization at this point time as patient's next dialysis is due on the seventh. * The patient does require left heart catheterization which would be to 6, will consult nephrology at that point time. 5. Diabetes mellitus type 2 * Continue with home insulin regimen plus sliding scale 6. DVT prophylaxis with subcu heparin Code Visit Inpatient E AND M: [id number] Init Hosp L3 02/24/18 3232 <Electronically signed by Roberto Roman DO> Date Roberto Roman DO Cosigner Signature: Date (if applicable) CC: Roberto Roman DO; Ric Mccrary MD Signed CBC W/DIFF, AUTOMATED Collected: 02/24/2018 Status: F Source: [place] 3:20 PM [facility] REPOSITORY TYPE CODE TESTS RESULT OUT OF RANGE REFERENCE UNITS LAB L100.1000 4.4-11.0 K/mm3 Normal WBC 5.6 LAB L100.1200 4.2-5.4 M/mm3 Low RBC 3.83 LAB L100.1300 12.0-15.0 g/dl Normal HGB 12.1 LAB L100.1400 37-47 % Normal HCT 38.5 LAB L100.1500 81-99 fL High MCV 100.5 LAB L100.1600 27.0-32.0 pg Normal MCH 31.6 LAB L100.1700 32-36 g/gl Low MCHC 31.4 LAB L100.1810 11.6-14.6 % High RDW CV 16.6 LAB L100.1820 35.1-43.9 fl High RDW SD 60.2 LAB L100.1900 150-450 K/mm3 Low PLT 114 LAB L100.2000 6.2-12.0 fl Normal MPV 8.6 LAB L100.2100 47-70 % Normal NEUT% 69.7 LAB L100.2200 19-41 % Normal LY% 19.4 LAB L100.2300 0-10 % Normal MONO% 5.5 LAB L100.2400 0-5 % Normal EO% 5.0 LAB L100.2500 0-1 % Normal BASO% 0.2 LAB L100.2550 0.0-0.9 % Normal IM GRAN % 0.200 Result Comment: IG% - Immature Granulocytes (promyelocytes, myelocytes and metamyelocytes) > 1% indicates that a LEFT SHIFT is Present. LAB L100.2620 2.0-7.7 X10 3/uL Normal Absolute Neut 3.9 LAB L100.2720 0.83-4.51 X10 3/ul Normal Absolute Lymph 1.09 Performed By: #### L100.0100 #### [facility] [address] [place], [place], [address] BASIC METABOLIC Collected: 02/24/2018 Status: F Source: [place] PROFILE (BMP) 3:20 PM [facility] REPOSITORY TYPE CODE TESTS RESULT OUT OF RANGE REFERENCE UNITS LAB L501.0100 74-106 mg/dL High GLU 312 Result Comment: Glucose result greater than or equal to 200 mg/dL suggests DIABETES MELLITUS per A.D.A. criteria. Please note revised GLUCOSE reference range effective 2017. LAB L501.1000 7-18 mg/dL Normal BUN 13 LAB L501.1100 0.55-1.02 mg/dL High CREAT,SERUM 3.02 Result Comment: The validity of the calculated GFR AND GFRAA in patients over 70 years has not been determined. Clinical correlation is essential. LAB L501.1110 >60 mL/min Low EST GFR 18 Result Comment: Non- GFR Calc LAB L501.1115 >60 mL/min Low EST GFR - AA 22 Result Comment: GFR Calc LAB L501.1255 ml/min Normal Estimated CRCL 22.25 LAB L501.1300 10-20 RATIO Low BUN/CRE 4.3 LAB L501.2200 8.5-10 mg/dL Low .1 CA 7.6 LAB L501.5300 136-14 mmol/L Low 5 NA 135 LAB L501.5600 3.5-5. mmol/L Low 1 K 3.3 LAB L501.5900 98-107 mmol/L Low CL 94 LAB L501.6100 21.0-3 mmol/L High 2.0 CO2 35.0 LAB L501.6200 5-15 Normal GAP 6 Performed By: #### L500.2500, L501.4010 #### [facility] [address] [place], [place], [address] TROPONIN-I Collected: 02/24/2018 Status: F Source: [place] 3:20 PM [facility] REPOSITORY TYPE CODE TESTS RESULT OUT OF RANGE REFERENCE UNITS LAB L501.4010 <0.045 ng/mL Normal < 0.015 TROPONIN-I Result Comment: TROPONIN-I EXPECTED VALUES <0.045 Negative 0.045 - 0.590 Consistent with Cardiac Damage > OR = 0.600 Critical Value Not every elevated troponin is indicative of [place]. These values should be used with clinical judgement in examining the patient's clinical picture for diagnosis. To establish a diagnosis of [place] versus myocardial injury, there must be a demonstrated rise and/or fall in the troponin values, in addition to ischemic symptoms, EKG changes, new regional wall motion abnormality, and/or angiographical evidence. PLEASE NOTE: REFERENCE RANGES EDITED 17 Performed By: #### L500.2500, L501.4010 #### [facility] [address] [place], [place], [address] BRAIN/HEAD WITHOUT Observed: 02/24/2018 Status: F Source: [place] CONTRAST 3:15 PM [facility] REPOSITORY [facility] Imaging Services [address] [place] [address] Brain/Head without Contrast MR#: [id number] Acct: [id number] Name: KOURTNEY REZA Rep #: [id number] : 1975 F 42 From: Woodrow Sun MD PCP: Ric Mccrary MD Status: REG ER Study: Brain/Head without Contrast Date of Exam: 02/24/18 Exam# [id number] Ordering Dr: Anila Bartlett MD STUDY: CT BRAIN WITHOUT CONTRAST REASON FOR EXAM: Female, 42 years old. Headache. Photophobia. History of diabetes and hypertension. RADIATION DOSAGE (If Supplied By Facility): CTDIvol = ( 44.99 ) mGy, DLP = ( 745.49 ) mGycm TECHNIQUE: Transaxial CT imaging of the brain was performed without administration of intravenous contrast material. Coronal and sagittal reconstructions were performed. Individualized dose optimization techniques were used for this CT. COMPARISON: 06/08/2017. FINDINGS: Normal soft tissue structures. Normal calvarium. Normal size ventricles and extra-axial spaces for the patient's age. Normal white matter tracts of the cerebral hemispheres. Normal basal ganglia and thalami. Normal brainstem. Normal cerebellum. There is no intracranial hemorrhage. There are no findings of an acute ischemic infarction. Normal visualized paranasal sinuses. CT/Brain/Head without Contrast IMPRESSION: Normal unenhanced CT scan of the brain and unchanged since 06/08/2017. Electronically Signed: Woodrow Sun MD at 15:51 EDT , Service support , CC: Anila Bartlett MD; Ric Mccrary MD Tester Operator Helper: Signed CHEST PA AND LATERAL Observed: 02/24/2018 Status: F Source: [place] 3:15 PM [facility] REPOSITORY [facility] Imaging Services [facility] [place] [address] Chest PA and Lateral MR#: [id number] Acct: [id number] Name: KOURTNEY REZA Rep #: [id number] : 1975 F 42 From: Anila Le MD PCP: Ric Mccrary MD Status: REG ER Study: Chest PA and Lateral Date of Exam: 02/24/18 Exam# [id number] Ordering Dr: Anila Bartlett MD STUDY: X-RAY CHEST REASON FOR EXAM: Female, 42 years old. Chest pain TECHNIQUE: Frontal and lateral views of the chest were obtained. COMPARISON: February 08, 2018 FINDINGS: The lungs are adequately aerated. There are no focal airspace opacities. There is no demonstrated pleural abnormality. The cardiac silhouette is normal in size. The mediastinum and hilar regions are unremarkable. Normal visualized pulmonary arteries. Normal visualized aortic arch and descending thoracic aorta. There are diffuse degenerative changes of the visualized spine. There is partial fusion of the left third and fourth ribs, likely a congenital defect. There is no demonstrated abnormality of the visualized upper abdomen. RAD/Chest PA and Lateral IMPRESSION: No acute cardiopulmonary abnormalities. Electronically Signed: Anila Le MD at 16:18 EDT Tel Direct: [phone], Service support , CC: Anila Bartlett MD; Ric Mccrary MD Tester Operator Helper: Signed 12 LEAD ELECTROCARDIOGRAM Observed: 02/13/2018 Status: F Source: [place] 2:01 PM [facility] REPOSITORY [facility] Cardiovascular Services [address] [place] [address] 12 Lead EKG 02/09/18 0537 MR#: [id number] Acct: [id number] Name: KOURTNEY REZA Rep #: [id number] : 1975 42 From: Wm Underwood MD Attending Dr: Rivka Charles Status: DIS AIDEN Ordering Dr: Nahun Garcia DO Date: 02/09/18 Location: [facility] Sex: F C Admitted: 02/08/18 Test Reason : AM EKG Blood Pressure : / mmHG Vent. Rate : 070 BPM Atrial Rate : 070 BPM P-R Int : 142 ms QRS Dur : 090 ms QT Int : 454 ms P-R-T Axes : 032 043 085 degrees QTc Int : 490 ms Normal sinus rhythm Nonspecific T wave abnormality Prolonged QT Abnormal ECG When compared with ECG of 08-FEB-2018 18:05, MANUAL COMPARISON REQUIRED, DATA IS UNCONFIRMED Confirmed by WM UNDERWOOD ([id number]), web editor SHANIA SOLITARIO ([id number]) on 02/13/2018 2:01:28 PM Referred By: DR GARCIA Confirmed By:WM UNDERWOOD 02/13/18 1401 Date Wm Underwood MD CC: Rivka Charles; Nahun Garcia DO; Ric Mccrary MD Signed 12 LEAD ELECTROCARDIOGRAM Observed: 02/13/2018 Status: F Source: [place] 1:21 PM [facility] REPOSITORY [facility] Cardiovascular Services [address] [place] [address] 12 Lead EKG 02/08/18 1805 MR#: [id number] Acct: [id number] Name: KOURTNEY REZA Rep #: [id number] : 1975 42 From: Kaitlynn Green MD Attending Dr: Rivka Charles Status: DIS AIDEN Ordering Dr: Nahun Garcia DO Date: 02/08/18 Location: [facility] Sex: F C Admitted: 02/08/18 Test Reason : CP Blood Pressure : / mmHG Vent. Rate : 077 BPM Atrial Rate : 077 BPM P-R Int : 144 ms QRS Dur : 090 ms QT Int : 418 ms P-R-T Axes : 041 059 251 degrees QTc Int : 473 ms Normal sinus rhythm T wave abnormality, consider inferolateral ischemia Prolonged QT Abnormal ECG Confirmed by PETER BEASLEY, KAITLYNN ([id number]), web editor SHANIA SOLITARIO ([id number]) on 02/13/2018 1:20:39 PM Referred By: JOSE Confirmed By:KAITLYNN GREEN MD 02/13/18 1320 Date Kaitlynn Green MD CC: Rivka Charles; Nahun Garcia DO; Ric Mccrary MD Signed PROGRESS Observed: 02/12/2018 Status: COMPLETED Source: [place] 11:17 AM [facility] REPOSITORY HNO ID: [id number] Author: Chip (Rn) Sherrill Service: (none) Author Type: Registered Nurse Type: Progress Notes Filed: 02/12/2018 12:29 PM Note Text: TRANSITION CARE MANAGEMENT (TCM) INITIAL CONTACT Provider Action/FYI: Please file medication updates and D/C hydrocodone and albuterol No chest pain. Feels it may have due to stress and stress is better now. BS ranging 87-180 Averaging mid range Fell sev weeks ago and had a concussion. Given Flexeril and Naproxen. Hasn't taken Flexeril in a while, still taking Naproxen BID Pt has appt at [facility] on 03/09 to begin assessment for ostomy reversal. Still having chronic issues with bleeding on peristomal skin Ostomy drainage continues to be very liquid. Initial contact with patient post discharge, spoke to patient. Patient identified by name and . SUMMARY: -Pt discharged from [facility] on 02/09. -Follow up appointment on 02/16 at 3:20 -Medication review done with patient. -Admitted for: Chest Pain-ACS ruled out CONCERNS: No chest pain. Feels it may have due to stress and stress is better now. States she fell several weeks ago and had a concussion. Given Flexeril and Naproxen. Hasn't taken Flexeril in a while, still taking Naproxen BID Pt has appt at [facility] on 03/09 to begin assessment for ostomy reversal. Still having chronic issues with bleeding on peristomal skin Ostomy drainage continues to be very liquid. BS ranging 87-180 Averaging mid range NEW MEDICATIONS: Isosorbide DN 60 mg Daily MEDS HELD/DISCONTINUED: None BRIEF HOSPITAL COURSE: Admitted 02/08 due to chest pain. Chest pain occurred during dialysis prior to admission. No further chest pain since admission. Troponin negative. Pt underwent nuclear stress test which demonstrated no evidence of ischemia. LVEF 55%. ACS ruled out. Patient stable for discharge home with f/u with PCP in 1 week and routine f/u with nephrology, schedule dialysis. CNPTOUTREACH Observed: 02/12/2018 Status: COMPLETED Source: [place] 12:00 AM [facility] REPOSITORY Patient Outreach (FAMPWS) KOURTNEY REZA ([id number]) 1975 F TRN Date Time Provider Department 02/12/18 CHIP TOLLIVER (RN) ROBERTPWS During your visit today, we recorded the following information about you: Chip Tolliver RN 02/12/2018 12:29 PM Signed TRANSITION CARE MANAGEMENT (TCM) INITIAL CONTACT Provider Action/FYI: Please file medication updates and D/C hydrocodone and albuterol No chest pain. Feels it may have due to stress and stress is better now. BS ranging 87-180 Averaging mid range Fell sev weeks ago and had a concussion. Given Flexeril and Naproxen. Hasn't taken Flexeril in a while, still taking Naproxen BID [facility] to begin assessment for ostomy reversal. Still having chronic issues with bleeding on peristomal skin Ostomy drainage continues to be very liquid. Initial contact with patient post discharge, spoke to patient. Patient identified by name and . SUMMARY: -Pt discharged from [facility] on 02/09. -Follow up appointment on 02/16 at 3:20 -Medication review done with patient. -Admitted for: Chest Pain-ACS ruled out CONCERNS: No chest pain. Feels it may have due to stress and stress is better now. States she fell several weeks ago and had a concussion. Given Flexeril and Naproxen. Hasn't taken Flexeril in a while, still taking Naproxen BID Pt has appt [facility] to begin assessment for ostomy reversal. Still having chronic issues with bleeding on peristomal skin Ostomy drainage continues to be very liquid. BS ranging 87-180 Averaging mid range NEW MEDICATIONS: Isosorbide DN 60 mg Daily MEDS HELD/DISCONTINUED: None BRIEF HOSPITAL COURSE: Admitted 02/08 due to chest pain. Chest pain occurred during dialysis prior to admission. No further chest pain since admission. Troponin negative. Pt underwent nuclear stress test which demonstrated no evidence of ischemia. LVEF 55%. ACS ruled out. Patient stable for discharge home with f/u with PCP in 1 week and routine f/u with nephrology, schedule dialysis. Allergies As of Date: 02/12/2018 Noted Allergy Reaction LATEX 01/20/2006 2 - Rash NSAIDS (NON-STEROIDAL ANTI-INFLAM*05/12/2017 15 - Contraindication- Medical [place]* PERCOCET (OXYCODONE-ACETAMINOPHEN)10/28/2013 1 - Mental Status Change REGLAN (METOCLOPRAMIDE) 07/03/2013 11 - Vomiting Date Reviewed: 01/22/2018 Reviewed by: Petty Zhang - Fully Assessed Reason for Visit: Transition Of Care [4554] Order(s):cyclobenzaprine (FLEXERIL) 10 mg tabletTake 1 tablet by mouth three times daily as needed for Muscle Spasm.Disp: Rfl: naproxen (NAPROSYN) 500 mg tabletTake 1 tablet by mouth twice daily with meals. Take with food.Disp: Rfl: Prescriptions as of 02/12/2018 Sig: ISOSORBIDE MONONITRATE ER 60 * Take 1 tablet by mouth once d* PEN NEEDLE, DIABETIC 31 GAUGE* Use one needle per dose. 4 x * LISINOPRIL 20 MG TABLET Take 1 tablet by mouth once d* CALCIUM ACETATE 667 MG CAPSULE Take 1 capsule by mouth three* SODIUM BICARBONATE 650 MG TAB* 650 mg on T, Th and Sat per D* HYDRALAZINE 25 MG TABLET Take 1 tablet by mouth three * FAMOTIDINE 20 MG TABLET Take 1 tablet by mouth once d* CARVEDILOL 25 MG TABLET TAKE 1 TABLET BY MOUTH TWICE * FLUOXETINE 40 MG CAPSULE Take 1 capsule by mouth once * PROMETHAZINE 25 MG TABLET TAKE 1 TABLET BY MOUTH EVERY * OSTOMY SUPPLIES 4 X 4 WAFER Holister wafer Reorder #[id number] OSTOMY SUPPLIES Ostomy bag Holister brand #18* INSULIN ASPART U-100 100 UNI* 8 units three times a day wit* INSULIN GLARGINE (U-100) 100 * Inject 5 Units subcutaneously* ATORVASTATIN 10 MG TABLET Take 1 tablet by mouth once d* ASPIRIN 81 MG TABLET,DELAYED * Take 1 tablet by mouth once d* NYSTATIN 100,000 UNIT/GRAM TO* Apply 1 application to affect* ERGOCALCIFEROL (VITAMIN D2) 5* Take 1 capsule by mouth once * IRON, CARBONYL 45 MG TABLET Take 1 tablet by mouth three * DILTIAZEM CR 240 MG CAP Take 1 capsule by mouth once * LANCETS Test blood sugar(s) 4- 6 times* BLOOD SUGAR DIAGNOSTIC STRIPS Test blood sugar(s) 4- 6 times* PEN NEEDLE, DIABETIC 29 GAUGE* 1 Each once daily. BLOOD SUGAR DIAGNOSTIC STRIPS Test blood sugar(s) 4 times d* BLOOD-GLUCOSE METER KIT Freestyle LITE Meter Kit - CYCLOBENZAPRINE 10 MG TABLET Take 1 tablet by mouth three * NAPROXEN 500 MG TABLET Take 1 tablet by mouth twice * Medication notes this encounter HYDROCODONE 5 MG-ACETAMINOPHEN 325 MG TABLET >> Chip Tolliver RN 02/12/2018 12:22 PM >> CHIP TOLLIVER MonFeb 12, 2018 12:22 PM Course of therapy completed Problem List As Of Date 02/12/2018 Noted Resolved VULVAL ABSCESS [N76.4] INVALID FOR*10/28/2013 Retinopathy due to secondary diabetes mellitus * Proteinuria [R80.9] Renal insufficiency [N28.9] 03/06/2017 Neuropathy [G62.9] INVALID FOR* HTN (hypertension) [I10] INVALID FOR* Anxiety [F41.9] INVALID FOR* More... Diabetes mellitus [E11.9] INVALID FOR* Cardiomyopathy, nonischemic [I42.8] INVALID FOR* Iron deficiency [E61.1] INVALID FOR* Anemia [D64.9] INVALID FOR* Scar condition and fibrosis of skin: Atrophic D*INVALID FOR* Rosacea [L71.9] INVALID FOR* Other acne [L70.8] INVALID FOR* Telangiectasia [I78.1] INVALID FOR* Irritant dermatitis [L24.9] INVALID FOR* Nodulocystic acne [L70.0] INVALID FOR* Dysfunctional uterine bleeding [N93.8] INVALID FOR* Vitamin D deficiency [E55.9] INVALID FOR* Asthma [J45.909] INVALID FOR* Obesity [E66.9] INVALID FOR* CHF (congestive heart failure) (HCC) [I50.9] INVALID FOR* Chronic renal failure, stage 5 (HCC) [N18.5] INVALID FOR* More... Complication of dialysis access insertion (HCC)*INVALID FOR* GABRIEL (obstructive sleep apnea) [G47.33] INVALID FOR* More... Diarrhea, functional [K59.1] INVALID FOR* More... Bloody stools [K92.1] INVALID FOR* More... C. difficile diarrhea [A04.72] INVALID FOR* More... Adenoma of left adrenal gland [D35.02] INVALID FOR* More... Prescriptions ordered this encounter Disp Refills Start End CYCLOBENZAPRINE 10 MG TABLET 02/13/2018 Class: Med Update Route: ORAL Sig: Take 1 tablet by mouth three times daily as needed for Muscle Spasm. NAPROXEN 500 MG TABLET 02/13/2018 Class: Med Update Route: ORAL Sig: Take 1 tablet by mouth twice daily with meals. Take with food. Medications Discontinued During This Encounter HYDROcodone-acetaminophen (NORCO) 5-* 30 t* 0 12/04/2017 02/13/2018 Class: Print RX Route: ORAL Sig: Take 1 tablet by mouth every 6 hours as needed for up to 30 days. Disc: Reason for discontinue is not on file. ALBUTEROL, BULK, MISC 02/13/2018 Class: Historical Med Route: Miscell. (Med.Supl.;Non-Drugs) Sig: Disc: Discontinued by another Health Care Provider Encounter Status:Closed by RIC MCCRARY MD on 02/13/18 DISCHARGE SUMMARY Observed: 02/09/2018 Status: F Source: [place] 1:24 PM [facility] REPOSITORY [facility] Medical Records Department [address] [place] [address] Discharge Summary 02/09/18 1103 MR#: [id number] Acct: [id number] Name: KOURTNEY REZA Rep #: [id number] : 1975 42 From: Fiorella Gan STRAWHAT SIZER-C PCP: Ric Mccrary MD Status: DIS AIDEN Y Location: [place] [address] ADDENDUM by Rivka Charles on 02/09/18 at 1324 Code Visit ATTENDING PHYSICIAN DISCHARGE NOTE: I have seen and examined the patient independently and agree with the assessment, plan, history per Fiorella Gan as noted. Discharge Diagnoses: (1) Chest pain, Non-cardiac, Unclear Specific Etiology, ACS ruled out (2) EKG changes w/ T-wave inversions inferior and lateral leads, Unclear if Chronic (3) ESRD on HD (4) Chronic systolic CHF, CM, Diastolic DysFx, CAD (5) Diabetes mellitus type II w/ Neuropathy, Gastroparesis (6) Hypertension (7) Hyperlipidemia (8) Depression and Anxiety (9) Tobacco Abuse (10) Obesity (11) GERD (12) AOCD, Fe deficiency anemia Discharge Summary: The patient is a 42 y/o F w/ PMHx: ESRD on HD T//Mon following w/ Dr. Martinez, Diabetes mellitus type II w/ Neuropathy and Gastroparesis, HTN, HLD, Tobacco use, Obesity, LV Diastolic Dysfx, Systolic CHF, CAD s/p 2012 catheterization w/ mild LAD disease w/ medical therapy only, Anxiety and Depression, AOCD/Fe deficiency anemia who presented to the [facility] ED on 02/09/18 with history of onset of chest discomfort in the precordial region, left-sided radiating toward her left neck noted to be pressure-like in quality during dialysis lasting approximately 1 hour with resolution following with episode identical to this the evening prior with spontaneous resolution. On ED presentation Dr. Tompkins was contacted and presentation as well as EKG were reviewed with recommendation for continuation with cardiac stress testing. in the ED work-up included EKG sinus rhythm with nonspecific T-wave inversions of unclear chronicity, CXR without acute process, CBC with stable anemia, unremarkable coags, chemistry with stable evidence of chronic kidney disease and hyperglycemia, mild hypokalemia with potassium 3.4 with resolution to 4.4 upon repeat, cardiac enzyme set x 1 normal. The patient was admitted to PCU, maintained on cardiac telemetry, serial cardiac enzymes were obtained as well as serial EKGs which remained unremarkable. Patient underwent AM stress testing which was noted to be negative for inducible ischemia. 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 Dr. Underwood, cardiology contacted prior to her discharge and amenable to discharge plan. Discharge Time: > 35 Minutes OBSV E AND M: 03002 Observation care discharge 02/09/18 1324 <Electronically signed by Rivka Charles > Date Rivka Charles cc: SATNAM Gan; Rivka Charles; Ric Mccrary MD * Signed Discharge Date and Diagnosis Date of Admission: 02/08/18 Date of Discharge: 02/09/18 - Primary Discharge Diagnosis Active and Suspected Problems 1. Chest pain- ACS ruled out - Secondary Discharge Diagnosis Chronic Problems ESRD (end stage renal disease) on dialysis (Chronic) Decubitus ulcer, stage III (Chronic) CAD (coronary artery disease) (Chronic) Anemia, chronic disease (Chronic) Pilonidal cyst with abscess (Chronic) GABRIEL (obstructive sleep apnea) (Chronic) ESRD on dialysis (Chronic) Depression (Chronic) Anxiety (Chronic) HTN (hypertension) (Chronic) Nonischemic cardiomyopathy (Chronic) With ejection fraction 45 - 50%; with angiographically normal coronary arteries 05/2013; follows up with Dr. Underwood S/P repair of PDA (patent ductus arteriosus) (Chronic) At young age Diabetes mellitus type 1 (Chronic) Hyperlipidemia (Chronic) Obesity (BMI 30.0-34.9) (Chronic) Gastroparesis (Chronic) Hospital Course and Treatment Imaging Results: Diagnostic Data Chest X-Ray 02/08/18 15:10 IMPRESSION: Increased markings at the lung bases. This is suggestive bibasilar atelectasis and/or early infiltrates. Stable deformity of the left ribs. Electronically Signed: Josh Hill MD at 15:24 EDT Tel [phone], Service support , Operations: None Procedures: - - Stress echo Summary of Care Provided: Patient is a 42-year-old female admitted 02/08/2018 due to chest pain. She has a past medical history of type 2 diabetes mellitus with neuropathy, gastroparesis, hypertension, hyperlipidemia, tobacco dependence, obesity, systolic CHF, CAD status post 2013 catheterization with mild LAD disease, anxiety, depression, anemia of chronic disease, iron deficiency anemia, end-stage renal disease on hemodialysis. Chest pain occurred during dialysis prior to admission. No further chest pain since admission. Troponin negative. Patient underwent nuclear stress test which demonstrated no evidence of ischemia. LVEF 55%. ACS ruled out. Patient is stable for discharge home with further follow-up with primary care physician in 1 week. She will continue routine follow-up with nephrology, schedule dialysis. Patient seen and examined prior to discharge. Alert, oriented, no acute distress. Lungs clear, diminished. Heart rate regular rate and rhythm, no murmur. Abdomen soft, nontender, obese, colostomy intact. No edema. Neuro grossly intact. Normal affect. Vital signs stable. This patient was seen by SATNAM Mcgraw under the supervision of Dr. Charles. Discharge Diet: Low fat/ Low Cholesterol, Renal Diet Discharge Activity: Return to Normal Activity Call your doctor if you observe: Shortness of breath, Dizziness, Fainting spells, Chest pain Home Medications: Medications to take at Discharge Aspirin [Aspirin, Baby] 81 mg PO DAILY@0800 01/26/16 Calcium Acetate [Phoslo Gel Cap] 1,334 mg PO TIDCM 01/26/16 Ergocalciferol [Vitamin D] 50,000 unit PO FR 01/26/16 Insulin Aspart [Novolog Flexpen] 10 units SC TIDCM 01/26/16 Insulin Glargine,Hum.rec.anlog [Lantus] 5 unit SQ QHS 01/09/17 proMETHazine tablet [Phenergan tablet] 25 mg PO Q6H PRN PRN #10 tablet 03/06/17 Lisinopril 20 mg PO DAILY 03/29/17 Sodium Bicarbonate 650 mg PO TUTHSA 03/29/17 Carvedilol [Coreg (Beta Lewis)] 25 mg PO BID 06/17/17 Fluoxetine HCl 40 mg PO DAILY 09/02/17 ALPRAZolam [Xanax] 0.5 mg PO DAILY 11/21/17 Ondansetron [Zofran Odt] 4 mg PO Q8H PRN PRN #10 tablet 01/27/18 Atorvastatin Calcium 20 mg PO QHS 02/08/18 Dicyclomine HCl [Bentyl] 20 mg PO 4X/DAY PRN PRN 02/08/18 Isosorbide DN [Isordil] 60 mg PO DAILY 02/08/18 Naproxen 500 mg PO BID PRN PRN 02/08/18 Omeprazole Magnesium [Prilosec Otc] 20 mg PO DAILY 02/08/18 Primary Care Physician: Ric Mccrary MD [Primary Care Provider] - Please follow up with your Primary Care Physician in: 1 Week Disposition: Home Minutes spent on discharge:: 35 Patient Condition:: Stable Medical Necessity - Tobacco Use Smoking Status: Light Smoker (<10/day) Tobacco Use: Cigarettes Meaningful Use Info Meaningful Use Diagnoses (Choose all that apply): None applicable 02/09/18 1121 <Electronically signed by Fiorella Gan NP-C> Date Fiorella Gan STRAWHAT SIZEROfeliaC 02/09/18 1310<Electronically signed by Rivka Charles > Cosigner Signature (if applicable): Date Rivka Charles CC: STRAWHAT SIZER-C Fiorella Gan; Rivka Charles; Ric Mccrary MD Signed 12 LEAD ELECTROCARDIOGRAM Observed: 02/09/2018 Status: F Source: [place] 12:59 PM [facility] Cardiovascular Services [address] [place] [address] 12 Lead EKG 02/08/18 1429 MR#: [id number] Acct: [id number] Name: KOUTRNEY REZA Rep #: [id number] : 1975 42 From: Robert Tompkins MD Attending Dr: Rivka Charles Status: DIS AIDEN Ordering Dr: Estrella Solano DO Date: 02/08/18 Location: [facility] Sex: F C Admitted: 02/08/18 Test Reason : CP Blood Pressure : / mmHG Vent. Rate : 081 BPM Atrial Rate : 081 BPM P-R Int : 138 ms QRS Dur : 094 ms QT Int : 422 ms P-R-T Axes : 032 053 240 degrees QTc Int : 490 ms Normal sinus rhythm Left ventricular hypertrophy T wave abnormality, consider inferolateral ischemia Prolonged QT Abnormal ECG Confirmed by ROBERT TOMPKINS MD ([id number]), web editor SHANIA SOLITARIO ([id number]) on 02/09/2018 12:58:47 PM Referred By: KATARINA Confirmed By:ROBERT TOMPKINS MD 02/09/18 0948 Date Robert Tompkins MD CC: Rivka Charles; Estrella Solano DO; Ric Mccrary MD Signed DISCHARGE INSTRUCTION Observed: 02/09/2018 Status: F Source: [place] 11:03 AM [facility] REPOSITORY [facility] Medical Records Department [address] [place] [address] Instructions for Home/Discharge Instructions 02/09/18 1101 MR#: [id number] Acct: [id number] Name: KOURTNEY REZA Rep #: [id number] : 1975 42 From: Fiorella Gan STRAWHAT SIZER-C PCP: Ric Mccrary MD Status: ADM AIDEN - Discharge Diagnoses Current Active Problems: Current Active and Chronic Problems Chest pain (Acute) You will use the following diet at home:: Cardiac, Renal (restricted protein/sodium) Discharge Activity: Return to Normal Activity Call your doctor if you observe: Shortness of breath, Dizziness, Fainting spells, Chest pain Allergies/Adverse Reactions: Allergies latex Allergy (Verified 02/08/18 14:54) Rash levofloxacin [From Levaquin] Adverse Reaction (Verified 02/08/18 14:54) PT CAN'T REMEMBER PT CAN'T REMEMBER metoclopramide HCl [From Reglan] Adverse Reaction (Verified 02/08/18 14:54) Nausea NSAIDS (Non-Steroidal Anti-Inflamma Adverse Reaction (Verified 02/08/18 14:54) kidney function oxycodone HCl [From Percocet] Adverse Reaction (Verified 02/08/18 14:54) HALLUCINATIONS Medications to take at Discharge Aspirin [Aspirin, Baby] 81 mg PO DAILY@0800 01/26/16 Calcium Acetate [Phoslo Gel Cap] 1,334 mg PO TIDCM 01/26/16 Ergocalciferol [Vitamin D] 50,000 unit PO FR 01/26/16 Insulin Aspart [Novolog Flexpen] 10 units SC TIDCM 01/26/16 Insulin Glargine,Hum.rec.anlog [Lantus] 5 unit SQ QHS 01/09/17 proMETHazine tablet [Phenergan tablet] 25 mg PO Q6H PRN PRN #10 tablet 03/06/17 Lisinopril 20 mg PO DAILY 03/29/17 Sodium Bicarbonate 650 mg PO TUTHSA 03/29/17 Carvedilol [Coreg (Beta Lewis)] 25 mg PO BID 06/17/17 Fluoxetine HCl 40 mg PO DAILY 09/02/17 ALPRAZolam [Xanax] 0.5 mg PO DAILY 11/21/17 Ondansetron [Zofran Odt] 4 mg PO Q8H PRN PRN #10 tablet 01/27/18 Atorvastatin Calcium 20 mg PO QHS 02/08/18 Dicyclomine HCl [Bentyl] 20 mg PO 4X/DAY PRN PRN 02/08/18 Isosorbide DN [Isordil] 60 mg PO DAILY 02/08/18 Naproxen 500 mg PO BID PRN PRN 02/08/18 Omeprazole Magnesium [Prilosec Otc] 20 mg PO DAILY 02/08/18 Primary Care Physician: Ric Mccrary MD [Primary Care Provider] - Please follow up with your Primary Care Physician in: 1 Week Test Results: Test results from this visit will be discussed in further detail at your follow-up appointment, if applicable. Proposed Discharge Date: 02/09/18 02/09/18 1103 <Electronically signed by Fiorella Gan NP-C> Date Fiorella HAY CC: Nawaf Valdivia MD; Ric Mccrary MD STRESS TEST ECHO W/O Observed: 02/09/2018 Status: F Source: [place] CONTRAST 10:48 AM [facility] REPOSITORY [facility] Cardiovascular Services [address] [place] [address] Stress Test Echo W/Contrast MR#: [id number] Acct: [id number] Name: KOURTNEY REZA Rep #: [id number] : 1975 42 From: Wm Underwood MD Primary Care: Ric Mccrary MD Status: ADM AIDEN Ordering Dr: Nahun Garcia DO Sex: F C Version 2 Reason For Study: CAD/ASHD, CHEST PAIN Stress Results Protocol: Dobutamine Protocol Maximum Predicted HR: 176 bpm Target HR: 150 bpm% Maximum Predicted HR: 74 % DurationHeart Rate Stage (mm:ss) (bpm) BPDos e Comment BASELINE 75 158/76 2CC DEFINITY STAGE 1 4:29 74 / 10. 002 CC DEFINTY STAGE 2 3:47 88 160/7820.00 STAGE 3 3:00 10 3 170/8230.000.5 MG ATROPINE STAGE 4 5:32 13 0 180/8040.000.5 MG ATROPINE RECOVERY 95 120/70 2 CC DEFINITY Stress Duration: 16:48 mm:ss Maximum Stress HR: 130 bpm Baseline Echocardiogram Findings The estimated ejection fraction is 45 %. Stress Echo Wall motion Data Resting WMIntermediate WMStress WM Resting Wall Motion Wall Motion Stress Posterior-Basal: Severely All other walton contracted hypokinetic. normally with dobutamine Infero-Basal: Severely infusion. Inferior/posterior wall Hypokinetic. remained severely hypokinetic Mid-Inferior: Severely throughtout infusion. Hypokinetic. EKG Data Normal intervals are noted. The patient was titrated from 10 mcg to a maximum of 40 mcg of dobutamine during the stress. The maximum heart rate attained was 129 beats per minute. This was 73% of maximum predicted heart rate. During dobutamine infusion, there were no ST or T wave changes noted to suggest ischemia. No clinical angina was noted. Interpretation Summary The estimated ejection fraction is 45 %. Posterior-Basal: Severely hypokinetic. Infero-Basal: Severely Hypokinetic. Mid-Inferior: Severely Hypokinetic. Normal, adequate, dobutamine echocardiogram. Negative for ischemia by EKG and echocardiographic criteria. No anginall symptoms noted. Patient had baseline severe inferior posterior hypokinesis, which did not improve with infusion. All other walton contracted normally during infusion and at peak infusion. Rare PACs and PVCs noted. Hypertensive blood pressure response to dobutamine. Decreased sensitivity due to failure to reach target heart rate although rate pressure product was adequate. Decreased sensitivity due to poor echo windows requiring Definity enhancing agent. Final LVEF of 55%. No complications. Ordering Physician: Nahun Garcia Referring Physician: Nahun Garcia DO Performed By: Marika Acevedo, TEO, RVT 02/09/18 1048 Date Wm Underwood MD CC: Rivka Charles; Nahun Garcia DO; Ric Mccrary MD Date Dictated: 02/09/18 0758 Date Transcribed: 02/09/18 104 Tester Operator Helper: Signed BEDSIDE GLUCOSE Collected: 02/09/2018 Status: F Source: [place] 6:52 AM [facility] REPOSITORY TYPE CODE TESTS RESULT OUT OF REFERENCE UNITS RANGE LAB L501.080 70-110 mg/dL High BEDSIDE GLU 135 Result Comment: MANAGEMENT OF PATIENT CARE PER NURSING PROTOCOL Performed By: #### L501.080 #### [facility] Point [place] [address] CBC W/DIFF, AUTOMATED Collected: 02/09/2018 Status: F Source: [place] 5:05 AM [facility] REPOSITORY TYPE CODE TESTS RESULT OUT OF RANGE REFERENCE UNITS LAB L100.1000 4.4-11.0 K/mm3 Normal WBC 5.6 LAB L100.1200 4.2-5.4 M/mm3 Low RBC 3.43 LAB L100.1300 12.0-15.0 g/dl Low HGB 11.1 LAB L100.1400 37-47 % Low HCT 35.1 LAB L100.1500 81-99 fL High MCV 102.3 LAB L100.1600 27.0-32.0 pg High MCH 32.4 LAB L100.1700 32-36 g/gl Low MCHC 31.6 LAB L100.1810 11.6-14.6 % High RDW CV 15.0 LAB L100.1820 35.1-43.9 fl High RDW SD 54.6 LAB L100.1900 150-450 K/mm3 Normal PLT 182 LAB L100.2000 6.2-12.0 fl Normal MPV 8.7 LAB L100.2100 47-70 % Normal NEUT% 61.5 LAB L100.2200 19-41 % Normal LY% 27.3 LAB L100.2300 0-10 % Normal MONO% 4.7 LAB L100.2400 0-5 % High EO% 5.6 LAB L100.2500 0-1 % Normal BASO% 0.4 LAB L100.2550 0.0-0.9 % Normal IM GRAN % 0.500 Result Comment: IG% - Immature Granulocytes (promyelocytes, myelocytes and metamyelocytes) > 1% indicates that a LEFT SHIFT is Present. LAB L100.2620 2.0-7.7 X10 3/uL Normal Absolute Neut 3.4 LAB L100.2720 0.83-4.51 X10 3/ul Normal Absolute Lymph 1.52 Performed By: #### L100.0100 #### [facility] [address] [place], [place], [address] PROTHROMBIN TIME W/INR Collected: 02/09/2018 Status: F Source: [place] 5:05 AM [facility] REPOSITORY TYPE CODE TESTS RESULT OUT OF RANGE REFERENCE UNITS LAB L300.4150 11.7-14.9 SECONDS Normal PROTIME 14.8 LAB L300.4200 Normal INR 1.2 Performed By: #### L300.3900, L300.4310 #### [facility] [address] [facility] [address] PARTIAL THROMBOPLAST Collected: 02/09/2018 Status: F Source: [place] TIME 5:05 AM [facility] REPOSITORY TYPE CODE TESTS RESULT OUT OF RANGE REFERENCE UNITS LAB L300.4310 24.1-36.2 Seconds Normal PTT 31.3 Performed By: #### L300.3900, L300.4310 #### [facility] [address] [place], [address] BASIC METABOLIC Collected: 02/09/2018 Status: F Source: [place] PROFILE (BMP) 5:05 AM [facility] REPOSITORY TYPE CODE TESTS RESULT OUT OF RANGE REFERENCE UNITS LAB L501.0100 74-106 mg/dL High GLU 129 Result Comment: Fasting Glucose result greater than or equal to 126 mg/dL suggests DIABETES MELLITUS per A.D.A. criteria. Please note revised GLUCOSE reference range effective 2017. LAB L501.1000 7-18 mg/dL High BUN 43 LAB L501.1100 0.55-1.02 mg/dL High CREAT,SERUM 5.79 Result Comment: The validity of the calculated GFR AND GFRAA in patients over 70 years has not been determined. Clinical correlation is essential. LAB L501.1110 >60 mL/min Low EST GFR 8 Result Comment: Non- GFR Calc LAB L501.1115 >60 mL/min Low EST GFR - AA 10 Result Comment: GFR Calc LAB L501.1255 ml/min Normal Estimated CRCL 11.61 LAB L501.1300 10-20 RATIO Low BUN/CRE 7.4 LAB L501.2200 8.5-10 mg/dL Low .1 CA 8.3 LAB L501.5300 136-14 mmol/L Normal 5 NA 140 LAB L501.5600 3.5-5. mmol/L Normal 1 K 4.4 LAB L501.5900 98-107 mmol/L Normal CL 102 LAB L501.6100 21.0-3 mmol/L Normal 2.0 CO2 30.0 LAB L501.6200 5-15 Normal GAP 8 Performed By: #### L500.2500 #### [facility] [address] [place], [place], [address] BEDSIDE GLUCOSE Collected: 02/09/2018 Status: F Source: [place] 1:18 AM [facility] REPOSITORY TYPE CODE TESTS RESULT OUT OF REFERENCE UNITS RANGE LAB L501.080 70-110 mg/dL High BEDSIDE GLU 169 Result Comment: MANAGEMENT OF PATIENT CARE PER NURSING PROTOCOL Performed By: #### L501.080 #### [facility] Point of Care [address] [place] [address] BEDSIDE GLUCOSE Collected: 02/08/2018 Status: F Source: [place] 9:46 PM [facility] REPOSITORY TYPE CODE TESTS RESULT OUT OF REFERENCE UNITS RANGE LAB L501.080 70-110 mg/dL High BEDSIDE GLU 186 Result Comment: MANAGEMENT OF PATIENT CARE PER NURSING PROTOCOL Performed By: #### L501.080 #### [facility] Point of Care [address] [place] [address] TROPONIN-I Collected: 02/08/2018 Status: F Source: [place] 9:09 PM [facility] REPOSITORY Order Comment: 'TROP' Serial specimen #1, #2 or #3: 3 TYPE CODE TESTS RESULT OUT OF RANGE REFERENCE UNITS LAB L501.4010 <0.045 ng/mL Normal < 0.015 TROPONIN-I Result Comment: TROPONIN-I EXPECTED VALUES <0.045 Negative 0.045 - 0.590 Consistent with Cardiac Damage > OR = 0.600 Critical Value Not every elevated troponin is indicative of [place]. These values should be used with clinical judgement in examining the patient's clinical picture for diagnosis. To establish a diagnosis of [place] versus myocardial injury, there must be a demonstrated rise and/or fall in the troponin values, in addition to ischemic symptoms, EKG changes, new regional wall motion abnormality, and/or angiographical evidence. PLEASE NOTE: REFERENCE RANGES EDITED 17 Performed By: #### L501.4010 #### [facility] [address] [place], [address] HISTORY AND PHYSICAL Observed: 02/08/2018 Status: F Source: [place] EXAM 7:45 PM [facility] REPOSITORY [facility] Medical Records Department [address] [place] [address] History and Physical 02/08/18 1929 MR#: [id number] Acct: [id number] Name: KOURTNEY REZA Van Rep #: [id number] : 1975 42 From: Nahun Garcia DO PCP: Ric Mccrary MD Status: ADM AIDEN Y Location: [place] [address] Problem List (1) Chest pain Status: Acute Qualifiers: Chest pain type: precordial pain Qualified Code(s): R07.2 - Precordial pain History of Present Illness Date of Admission: 02/08/18 Chief Complaint: Chest pain The patient is a 42 year old F who was seen in the emergency room at [facility] after experiencing chest pain at her dialysis today. Patient's described the chest pain as precordial, left-sided, radiating into her left neck area, and pressure-like in quality. Patient was at rest today when it started, it lasted for approximately an hour, patient related that after she got a nitroglycerin and the squad the chest pain resolved. Patient also stated that last night she experienced an identical pain that lasted approximately an hour while she was leaning the basement, this chest pain went away spontaneously and she did not take any nitroglycerin. Evaluation in the emergency room included an EKG which showed T-wave inversions and 2 3 aVF as well as V 4 5 and 6. Chest x-ray showed a stable deformity of the left ribs and bibasilar infiltrates or atelectasis. Labs were obtained and were remarkable for a creatinine of 4.78, BUN of 32, hemoglobin of 10.8, glucose of 436, potassium 3.4, and the patient's troponin was below 0.015. Patient will be placed in observation status on PCU, cardiac enzymes will be cycled, she will undergo a stress echo tomorrow, I talked with Dr. Tompkins about this and that was his recommendation. Dr. Underwood will be reading the stress echo. Nephrology will see the patient during her hospitalization. Past Medical History Past Medical History (Chronic Problems): Chronic Problems ESRD (end stage renal disease) on dialysis (Chronic) Decubitus ulcer, stage III (Chronic) CAD (coronary artery disease) (Chronic) Anemia, chronic disease (Chronic) Pilonidal cyst with abscess (Chronic) GABRIEL (obstructive sleep apnea) (Chronic) ESRD on dialysis (Chronic) Depression (Chronic) Anxiety (Chronic) HTN (hypertension) (Chronic) Nonischemic cardiomyopathy (Chronic) With ejection fraction 45 - 50%; with angiographically normal coronary arteries 05/2013; follows up with Dr. Underwood S/P repair of PDA (patent ductus arteriosus) (Chronic) At young age Diabetes mellitus type 1 (Chronic) Hyperlipidemia (Chronic) Obesity (BMI 30.0-34.9) (Chronic) Gastroparesis (Chronic) Allergies latex Allergy (Verified 02/08/18 14:54) Rash levofloxacin [From Levaquin] Adverse Reaction (Verified 02/08/18 14:54) PT CAN'T REMEMBER PT CAN'T REMEMBER metoclopramide HCl [From Reglan] Adverse Reaction (Verified 02/08/18 14:54) Nausea NSAIDS (Non-Steroidal Anti-Inflamma Adverse Reaction (Verified 02/08/18 14:54) kidney function oxycodone HCl [From Percocet] Adverse Reaction (Verified 02/08/18 14:54) HALLUCINATIONS Home Medications: Ambulatory Orders Medication Instructions Recorded Aspirin [Aspirin, Baby] 81 mg PO DAILY@0800 01/26/16 Calcium Acetate [Phoslo Gel Cap] 1,334 mg PO TIDCM 01/26/16 Ergocalciferol [Vitamin D] 50,000 unit PO FR 01/26/16 Surgical History: appendectomy, hysterectomy - and BSO, - - c-sections, L breast I+D for abscess, fistula placement LUE, L ankle surgery, appendectomy, PDA repair. Excision pilonidal cyst ulcer about 4 years ago. Colostomy placed due to rectal abscess/wound, patent ductus repair Psychiatric History: No pertinent psych hx NETWORKS SOFTWARE CONSULTANT History: No pertinent NETWORKS SOFTWARE CONSULTANT history Lives: Spouse/ Significant Other Smoking Status: Light Smoker (<10/day) Tobacco Use: Cigarettes Alcohol: None Drugs: None - *Family History Maternal History Items: Cancer, COPD, Diabetes, Hypertension, Renal Disease, Stroke Paternal History Items: Diabetes Sibling History Items: Cancer, Diabetes Review of Systems Constitutional: Denies: Anorexia, Chills, Fever, Night Sweats, Malaise, Weakness, Weight Change, Fatigue Eyes: Denies: Blurred vision, Cataracts, Conjunctivae Inflammation, Double vision, Drainage HEENT: Denies: Difficulty Swallowing, Dysphasia, Ear Pain, Eye Pain, Hearing Changes, Nasal bleeding, Nasal Congestion, Post Nasal Drip, Sore Throat, Visual Changes Cardiovascular: Reports: Chest Pain, Chest Pressure, Heaviness. Denies: Claudication, Chest Tightness, Edema, Light Headedness, Orthopnea, Palpitations, Paroxysmal Noc. Dyspnea, Syncope Respiratory: Denies: Cough, Hemoptysis, Pleuritic Pain, Shortness of Breath, Shortness of breath at rest, Shortness of breath upon exertion, Sputum production, Wheezing Gastrointestinal: Denies: Abdominal Pain, Constipation, Diarrhea, Hematemesis, Hematochezia, Nausea, Melena, Vomiting Genitourinary: Denies: Dysuria, Frequency, Hematuria, Hesitancy, Incontinence, Nocturia, Urgency Gynecological: Denies: Breast symptoms Musculoskeletal: Denies: Back Pain, Foot Pain, Hand Pain, Joint Pain, Joint stiffness, Joint swelling, Joint Tenderness, Leg Pain Skin: Denies: Dryness, Pruritis, Rash Neurological: Denies: Balance problems, Blurred vision, Double vision, Slurred speech, Difficulty swallowing, Focal weakness, Headaches, Incoordination, Numbness, Tingling Psychiatric: Denies: Anxiety, Depression, Homicidal Ideations, Suicidal Ideations Endocrine: Denies: Change in Body Habitus, Heat/ Cold Intolerance, Polydipsia, Polyuria Hematologic/ Lymphatic: Denies: Adenopathy, Anemia, Easy Bruising, Easy Bleeding, Petechiae, Purpura VTE Information - Inpt Only VTE Present on Admission: No VTE Mechan Device Prophylaxis: None VTE Pharm Prophylaxis ordered?: Yes Patient Problems: Active and Suspected Problems Chest pain (Acute) - Physical Exam General: Alert, Oriented x3, Cooperative, No apparent distress, Well developed, Well nourished HEENT: Atraumatic, PERRLA, EOMI, Normocephalic Oral: Moist Mucosa Neck: Supple, No JVD, Negative Carotid Bruits, No Nuchal Rigidity, Trachea Midline, Thyroid Normal Size and Texture Lungs: Clear to auscultation, Normal air movement, No rhonchi, No wheeze, No rales Cardiovascular: Regular rate, Regular Rhythm, Normal S1, Normal S2, No murmurs, No Ectopic Activity, PMI Normal, No rub noted, No Gallop Abdomen: Bowel Sounds Present, Soft, Non Tender, - - Colostomy in place Extremities: No clubbing, No cyanosis, No edema, Capillary Refill Less than 3 Seconds Skin: No rashes, No breakdown Musculoskeletal: No Tenderness to Palpation of Joints or Extremities Neurological: Cranial nerves II-XII grossly intact, Neuro grossly intact, Sensory exam intact to light touch and pain, Coordination normal Psych/Mental Status: Normal Affect, Appropriate, Alert and oriented to time, place, person, mood and affect Vital Signs Temp Pulse Resp BP Pulse Ox 97.4 F L 87 17 153/74 H 98 02/08/18 18:00 02/08/18 19:00 02/08/18 18:00 02/08/18 18:00 02/08/18 18:00 Oxygen Flow Rate (L/min) 2 Oxygen Delivery Method Nasal Cannula Weight: 88.3 kg Body Mass Index (BMI) 31.4 Intake and Output for Last 24 Hours Intake Total 120 / 120 Balance 120 / 120 Laboratory Tests Past 24 Hrs Troponin I < 0.015 POC Glucose POC Glucose 250 H Assessment/Plan All Active Problems Chest pain (Acute) Tooth abscess (Resolved) Intractable nausea and vomiting (Resolved) Pneumonia (Resolved) Pulmonary edema (Resolved) Hyperkalemia (Resolved) Atypical chest pain (Resolved) Acute hypoxic respiratory failure (Resolved) Pulmonary edema (Resolved) Clostridium difficile enterocolitis (Resolved) Necrotizing myositis (Resolved) Dysmenorrhea (Resolved) Hx of necrotizing fascIItis (Resolved) Iron deficiency anemia due to chronic blood loss (Resolved) Systolic congestive heart failure (Resolved) #1 chest pain-in a patient with known history of coronary artery disease, patient will be placed in observation status on PCU, cardiac enzymes will be cycled, patient will undergo a stress echo tomorrow if cardiac enzymes remain negative #2 T-wave inversions inferior and lateral wall leads-significance unknown at this time, again patient has a history of coronary artery disease and her last EKG in December 2017 did not show these T-wave changes. Patient will undergo a stress echo tomorrow if her enzymes remain negative #3 end-stage renal disease currently on dialysis-nephrology will see the patient, patient completed all but 30 minutes of her dialysis today according to her #4 type 2 diabetes-blood sugar will be monitored, sliding scale insulin will given per protocol #5 anemia of chronic renal disease #6 hypertension #7 hyperlipidemia #8 depression Code Visit OBSV E AND M: [id number] Initial observation care L3 02/08/181944 <Electronically signed by Nahun Garcia DO> Date Nahun Garcia DO Cosigner Signature: Date (if applicable) CC: Nahun Garcia DO; Ric Mccrary MD Signed BEDSIDE GLUCOSE Collected: 02/08/2018 Status: F Source: [place] 6:44 PM [facility] REPOSITORY TYPE CODE TESTS RESULT OUT OF REFERENCE UNITS RANGE LAB L501.080 70-110 mg/dL High BEDSIDE GLU 250 Result Comment: MANAGEMENT OF PATIENT CARE PER NURSING PROTOCOL Performed By: #### L501.080 #### [facility] Point of Care [address] [place] [address] EMERGENCY DEPARTMENT Observed: 02/08/2018 Status: F Source: [place] SUMMARY 3:58 PM [facility] REPOSITORY [facility] Medical Records Department [address] [place] [address] Emergency Department Summary 02/08/18 1553 MR#: [id number] Acct: [id number] Name: KOURTNEY REZA Rep #: [id number] : 1975 42 From: Estrella Solano DO PCP: Ric Mccrary MD Status: REG ER - ER Visit Summary Date of Service: 02/08/18 Chief Complaint: [Chest pain] History of Present Illness: The patient is a 42 F [presents the emergency department complaint of chest discomfort started initially last evening while cleaning her basement. Patient states the pain lasted about an hour and a half last night and described it as sharp and radiating to her left arm and left neck. Patient felt somewhat short of breath with it and then it made her feel lightheaded and dizzy. This morning while at dialysis approximately 1 PM she developed the same chest discomfort again. The pain did make her nauseated and she felt clammy. The pain radiated into the neck and left arm. EMS was called and they gave her 1 sublingual nitro which resolved her pain and patient comes to the emergency department pain-free. Patient states that she does have a history of coronary artery disease and has one stent that was placed in 2008 but cannot remember where. 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 Underwood. Patient denies recent travel or surgery. Patient denies recent illness.] Physical Examination: [HEENT-PERRLA, EOMI. Cranial nerves II through XII grossly intact. TMs clear. Mucous membranes moist. No adenopathy. Cardiovascular-regular rate and rhythm without murmur or ectopy Lungs-clear to auscultation, chest wall stable without crepitus or subcu emphysema Abdomen-normoactive bowel sounds, soft, nontender, no rebound or rigidity, no peritoneal signs. Extremities-intact 4, normal range of motion, normal pulses, atraumatic] Test Results: [EKG obtained on arrival showed a sinus rhythm with a ventricular rate of 81 bpm with LVH noted. Patient had nonspecific ST changes and that she had flipped T waves anterior laterally and inferiorly which are new when compared with prior EKG from January 11, 2018. CBC with differential obtained showed a white count of 5.5, hemoglobin 10.8, hematocrit 34, platelets 192. Chemistries unremarkable. BUN was 32 and creatinine was 4.78. Glucose was 436. Troponin less than 0.015. Chest x-ray showed increased markings in the bases which could represent atelectasis but could not rule out early infiltrate. I do not believe the patient has pneumonia.] Emergency Department Course and Treatment: [Patient received aspirin in the emergency department. Case was discussed with Dr. Tompkins who is on-call for cardiology. I was asked to admit patient medicine and they will consult. I spoke with Dr. Garcia who will evaluate patient for admission] Treatment Plan: [Patient will be admitted for further workup and evaluation of her chest pain] Disposition: [Admit] Impression: Chest pain-rule out acute coronary syndrome Hyperglycemia [] This note was generated with [employer] dictation software. It may contain incorrect words, spelling, and punctuation that were not noted in review of the chart prior to signing ED Disposition - Plan for ED Patient: Chief Complaint: Chest Pain Referrals: Ric Mccrary MD [Primary Care Provider] - What to do if you have Problems For any increased pain, shortness of breath, bleeding, nausea or vomiting, chest pain, or any unexpected problems, contact your Primary Care Provider. Call [facility] ([phone]) or report to the closest Emergency Room. Call 911 if necessary. 02/08/18 1558 <Electronically signed by Estrella Solano DO> Date Estrella Solano DO Cosigner Signature (If Indicated): Date CC: Ric Mccrary MD CHEST 1 VIEW Observed: 02/08/2018 Status: F Source: [place] (PORTABLE) 3:10 PM [facility] REPOSITORY [facility] Imaging [place] [address] Chest 1 View (Portable) MR#: [id number] Acct: [id number] Name: KOURTNEY REZA Rep #: [id number] : 1975 F 42 From: Josh Hill MD PCP: Ric Mccrary MD Status: PRE ER Study: Chest 1 View (Portable) Date of Exam: 02/08/18 Exam# [id number] Ordering Dr: Estrella Solano DO STUDY: X-RAY CHEST REASON FOR EXAM: Female, 42 years old. Left-sided chest pain and shortness of breath. TECHNIQUE: Single AP portable view of the chest. COMPARISON: Comparison is made with prior study dated December 28, 2017. FINDINGS: EKG electrodes are seen. Mild increased markings at the right lung base as well as at the left lung base suggestive of bibasilar atelectasis. There is no demonstrated pleural abnormality. Normal size heart. Normal mediastinum and latrell. Normal visualized pulmonary arteries. Normal visualized aortic arch and descending thoracic aorta. Normal visualized thoracic spine. Deformity of the lower left ribs. This in keeping with healed rib fractures. There is no demonstrated abnormality of the visualized soft tissue structures of the upper abdomen. RAD/Chest 1 View (Portable) IMPRESSION: Increased markings at the lung bases. This is suggestive bibasilar atelectasis and/or early infiltrates. Stable deformity of the left ribs. Electronically Signed: Josh Hill MD at 15:24 EDT Tel [phone], Service support , CC: Estrlela Solano DO; Ric Mccrary MD Tester Operator Helper: Signed BASIC METABOLIC Collected: 02/08/2018 Status: F Source: CIARAN PROFILE (BMP) 2:47 PM [facility] REPOSITORY TYPE CODE TESTS RESULT OUT OF RANGE REFERENCE UNITS LAB L501.0100 74-106 mg/dL High GLU 436 Result Comment: Glucose result greater than or equal to 200 mg/dL suggests DIABETES MELLITUS per A.D.A. criteria. Please note revised GLUCOSE reference range effective 2017. LAB L501.1000 7-18 mg/dL High BUN 32 LAB L501.1100 0.55-1.02 mg/dL High CREAT,SERUM 4.78 Result Comment: The validity of the calculated GFR AND GFRAA in patients over 70 years has not been determined. Clinical correlation is essential. LAB L501.1110 >60 mL/min Low EST GFR 11 Result Comment: Non- GFR Calc LAB L501.1115 >60 mL/min Low EST GFR - AA 13 Result Comment: GFR Calc LAB L501.1255 ml/min Normal Estimated CRCL 14.06 LAB L501.1300 10-20 RATIO Low BUN/CRE 6.7 LAB L501.2200 8.5-10 mg/dL Low .1 CA 7.7 LAB L501.5300 136-14 mmol/L Normal 5 NA 136 LAB L501.5600 3.5-5. mmol/L Low 1 K 3.4 LAB L501.5900 98-107 mmol/L Low CL 96 LAB L501.6100 21.0-3 mmol/L High 2.0 CO2 34.0 LAB L501.6200 5-15 Normal GAP 6 Performed By: #### L500.2500, L501.4010 #### [facility] [address] [place], [address] TROPONIN-I Collected: 02/08/2018 Status: F Source: CIARAN 2:47 PM [facility] REPOSITORY TYPE CODE TESTS RESULT OUT OF RANGE REFERENCE UNITS LAB L501.4010 <0.045 ng/mL Normal < 0.015 TROPONIN-I Result Comment: TROPONIN-I EXPECTED VALUES <0.045 Negative 0.045 - 0.590 Consistent with Cardiac Damage > OR = 0.600 Critical Value Not every elevated troponin is indicative of [place]. These values should be used with clinical judgement in examining the patient's clinical picture for diagnosis. To establish a diagnosis of [place] versus myocardial injury, there must be a demonstrated rise and/or fall in the troponin values, in addition to ischemic symptoms, EKG changes, new regional wall motion abnormality, and/or angiographical evidence. PLEASE NOTE: REFERENCE RANGES EDITED 17 Performed By: #### L500.2500, L501.4010 #### [facility] [address] [place], [place], [address] CBC W/DIFF, AUTOMATED Collected: 02/08/2018 Status: F Source: [place] 2:47 PM [facility] REPOSITORY TYPE CODE TESTS RESULT OUT OF RANGE REFERENCE UNITS LAB L100.1000 4.4-11.0 K/mm3 Normal WBC 5.5 LAB L100.1200 4.2-5.4 M/mm3 Low RBC 3.41 LAB L100.1300 12.0-15.0 g/dl Low HGB 10.8 LAB L100.1400 37-47 % Low HCT 34.0 LAB L100.1500 81-99 fL High MCV 99.7 LAB L100.1600 27.0-32.0 pg Normal MCH 31.7 LAB L100.1700 32-36 g/gl Low MCHC 31.8 LAB L100.1810 11.6-14.6 % High RDW CV 15.3 LAB L100.1820 35.1-43.9 fl High RDW SD 55.7 LAB L100.1900 150-450 K/mm3 Normal PLT 192 LAB L100.2000 6.2-12.0 fl Normal MPV 9.2 LAB L100.2100 47-70 % High NEUT% 74.3 LAB L100.2200 19-41 % Low LY% 15.2 LAB L100.2300 0-10 % Normal MONO% 5.5 LAB L100.2400 0-5 % Normal EO% 4.6 LAB L100.2500 0-1 % Normal BASO% 0.2 LAB L100.2550 0.0-0.9 % Normal IM GRAN % 0.200 Result Comment: IG% - Immature Granulocytes (promyelocytes, myelocytes and metamyelocytes) > 1% indicates that a LEFT SHIFT is Present. LAB L100.2620 2.0-7.7 X10 3/uL Normal Absolute Neut 4.1 LAB L100.2720 0.83-4.51 X10 3/ul Normal Absolute Lymph 0.83 Performed By: #### L100.0100 #### [facility] [address] [place], [address] ERYTHROCYTE SED RATE Collected: 02/08/2018 Status: F Source: CIARAN 2:47 PM [facility] REPOSITORY TYPE CODE TESTS RESULT OUT OF RANGE REFERENCE UNITS LAB L102.0000 0-20 mm/hr High SED RATE 64 Performed By: #### L101.9900 #### [facility] [address] [place], [address] XR CHEST 1 VIEW Observed: 02/05/2018 Status: F Source: [employer] 7:21 PM [facility] REPOSITORY ORIGINAL XR CHEST 1 VIEW CLINICAL STATEMENT: sob COMPARISON: Chest radiograph 11/14/2017 and 07/19/2017 FINDINGS: The lower lung bases are suboptimally evaluated due to portable technique, large body habitus with overlapping soft tissue structures. The cardiomediastinal contours are felt to be stable. Inc reased attenuation noted at the lung bases. There is no pneumothorax or large pleural effusion. Osseous structures demonstrate no acute abnormalities. IMPRESSION: 1. Increased attenuation of the lung bases could relate to summation artifact or patchy atelectasis/airspace disease. I have personally reviewed the images of this examination and agree with the resident's findings and interpretation. Interpreted By: Zach Maza MD Preliminary Report By: Sapphire Abrams MD Electronically Signed By: Zach Maza MD Dictated Date: 02/05/2018 7:34:56 PM Prelim Date: 02/05/2018 7:38:36 PM Sign Date: 02/05/2018 7:46:[address] SPINE CERVICAL W/O Observed: 02/03/2018 Status: F Source: [employer] CONTRAST 9:50 AM [facility] REPOSITORY ORIGINAL CT SPINE CERVICAL W/O CONTRAST CLINICAL STATEMENT: INJURY. Cervical spine trauma following a fall last evening. TECHNIQUE: Multiple-row detector helical CT examination of the cervical spine without IV contrast. Axial, sagittal, and coronal reconstructed images. This exam was performed according to our departmenta l dose optimization program, and includes the following measures where applicable: automated exposure control, adjustment of the mAs and/or kVp according to patient size and/or exam, and an iterative reconstruction algorithm. COMPARISON: None. FINDINGS: No fracture or traumatic malalignment. Vertebral body heights are maintained. No aggressive osseous lesions are identified. The prevertebral and paraspinal soft tissues demonstrate no acute abnormality. There is incidental note made of fairly advanced calcification involving the RIGHT carotid bulb, the distal RIGHT carotid artery and the RIGHT vertebral artery. Significant atherosclerotic disease is copeland spected. Is there history of diabetes or other metabolic abnormality? Visualized lung apices reveal early tree-in-bud airspace disease in the RIGHT upper lobe. IMPRESSION: 1. No acute fracture or traumatic malalignment. 2. Significant right-sided atherosclerotic disease involving the carotid and vertebral artery. Is there a history of diabetes? 3. Subtle developing RIGHT upper lobe pneumonia. Interpreted By: Zach Rosado DO Preliminary Report By: Zach Rosado DO Electronically Signed By: Zach Rosado DO Dictated Date: 02/03/2018 10:02:16 AM Prelim Date: 02/03/2018 10:02:16 AM Sign Date: 02/03/2018 10:07:[address] HEAD OR BRAIN W/O Observed: 02/03/2018 Status: F Source: [employer] CONTRAST 9:50 AM [facility] REPOSITORY ORIGINAL CT HEAD OR BRAIN W/O CONTRAST CLINICAL STATEMENT: INJURY. Blunt head trauma following a fall last evening. TECHNIQUE: Axial CT images from skull base to vertex without IV contrast. This exam was performed according to our departmental dose optimization program, and includes the following measures where appli cable: automated exposure control, adjustment of the mAs and/or kVp according to patient size and/or exam, and an iterative reconstruction algorithm. COMPARISON: None. FINDINGS: There is no intracranial hemorrhage, mass, mass effect or abnormal extra-axial fluid collection. No evidence of an acute territorial infarct is identified. The ventricles are normal. The skull base and calvarium demonstrate no abnormality. The included paranasal sinuses and mastoid air cells are clear. IMPRESSION: Normal noncontrast head CT. Interpreted By: Zach Rosado DO Preliminary Report By: Zach Rosado DO Electronically Signed By: Zach Rosado DO Dictated Date: 02/03/2018 10:07:27 AM Prelim Date: 02/03/2018 10:07:27 AM Sign Date: 02/03/2018 10:10:01 AM EMERGENCY DEPARTMENT Observed: 01/28/2018 Status: F Source: [place] SUMMARY 2:01 AM [facility] REPOSITORY [facility] Medical Records Department [address] [place] [address] Emergency Department Summary 01/27/18 2233 MR#: [id number] Acct: [id number] Name: KOURTNEY REZA Rep #: [id number] : 1975 42 From: Jules Story MD PCP: Ric Mccrary MD Status: DEP ER - ER Visit Summary Date of Service: 01/27/18 Chief Complaint: Vomiting and diarrhea History of Present Illness: The patient is a [address] Mccrary. She reports that she has diarrhea that began 2 days ago. She reports that she had a diverting colostomy after repair of what sounds to be a decubitus ulcer. She reports is been draining much more liquid stool since yesterday. No blood in her stool. She reports that she has sharp abdominal pain stenting over 7-10 currently. Is worsened by nothing relieved by nothing. She reports been nausea and vomited 6 times. No blood or emesis. She reports that this has gone through her house and that she is the last one to get sick. Patient reports that she was on clindamycin approximately 2 weeks ago as well as amoxicillin. She was camping yesterday, but did not drink the water. She does not drink well water. No possible bad food exposure. Physical Examination: Vitals: Stable. Afebrile. General: Well-nourished and well-developed. Head: Normocephalic atraumatic. Neck: Supple, no lymphadenopathy. No JVD. Nontender. Cardiovascular: Regular rate and rhythm. No murmurs. Respiratory: No respiratory distress. Clear to auscultation bilaterally. Abdominal: Soft, mild diffuse tenderness palpation, nondistended, normal bowel sounds. No guarding, rebound, or peritoneal signs. Her colostomy is erythematous. There is no bleeding. Back: Nontender. Extremities: Nontender, no edema. Skin: Normal color, no rash. Neurologic: Alert and oriented 3. Cranial nerves II through XII are intact. Normal strength and sensation. Psych: Normal affect. Test Results: CBC is marked for an H AND H 11.1 34.4, 7 neutrophils 73, lymphs at 16. Chem-7 marked potassium 3.4, chloride 95, CO2 34, glucose of 352, BUN 23, creatinine 4.4, calcium 7.8. C. difficile was negative. Emergency Department Course and Treatment: Patient does have history of end-stage renal disease and had a full run of dialysis today. I suspect that she is volume depleted due to involve the diarrhea. She was given 750 cc of normal saline. Patient reports that she has not taken her evening dose of insulin or her Lantus. Treatment Plan: Patient be discharged instructions to push fluids. Should be placed on Zofran. Instructed take her insulin when she gets home. Follow-up Dr. Mccrary in 1-2 days not improving. Return to the emergency department for any worsening symptoms. Disposition: To home in improved and stable condition. Impression: 1. Vomiting/diarrhea. 2. End-stage renal disease. 3. Hypoglycemia with a history of insulin-dependent diabetes mellitus. This note was generated with [employer] dictation software. It may contain incorrect words, spelling, and punctuation that were not noted in review of the chart prior to signing ED Disposition - Plan for ED Patient: Chief Complaint: Nausea/Vomiting/Diarrhea Instructions: ED Food Poison Or Gastroenteritis Prescriptions: Ondansetron [Zofran Odt] 4 mg PO Q8H PRN PRN #10 tablet PRN Reason: Nausea Dicyclomine HCl [Bentyl] 20 mg PO TIDAC #20 capsule Referrals: Ric Mccrary MD [Primary Care Provider] - 1-2 Days if not improving What to do if you have Problems For any increased pain, shortness of breath, bleeding, nausea or vomiting, chest pain, or any unexpected problems, contact your Primary Care Provider. Call [facility] ([phone]) or report to the closest Emergency Room. Call 911 if necessary. 01/28/18 0201 <Electronically signed by Jules Story MD> Date Jules Story MD Cosigner Signature (If Indicated): Date CC: Ric Mccrary MD CBC W/DIFF, AUTOMATED Collected: 01/27/2018 Status: F Source: [facility]AN 8:55 PM [facility] REPOSITORY TYPE CODE TESTS RESULT OUT OF RANGE REFERENCE UNITS LAB L100.1000 4.4-11.0 K/mm3 Normal WBC 7.5 LAB L100.1200 4.2-5.4 M/mm3 Low RBC 3.31 LAB L100.1300 12.0-15.0 g/dl Low HGB 11.1 LAB L100.1400 37-47 % Low HCT 34.4 LAB L100.1500 81-99 fL High MCV 103.9 LAB L100.1600 27.0-32.0 pg High MCH 33.5 LAB L100.1700 32-36 g/gl Normal MCHC 32.3 LAB L100.1810 11.6-14.6 % High RDW CV 16.4 LAB L100.1820 35.1-43.9 fl High RDW SD 57.9 LAB L100.1900 150-450 K/mm3 Normal PLT 172 LAB L100.2000 6.2-12.0 fl Normal MPV 8.4 LAB L100.2100 47-70 % High NEUT% 73.2 LAB L100.2200 19-41 % Low LY% 16.3 LAB L100.2300 0-10 % Normal MONO% 5.2 LAB L100.2400 0-5 % Normal EO% 4.6 LAB L100.2500 0-1 % Normal BASO% 0.3 LAB L100.2550 0.0-0.9 % Normal IM GRAN % 0.400 Result Comment: IG% - Immature Granulocytes (promyelocytes, myelocytes and metamyelocytes) > 1% indicates that a LEFT SHIFT is Present. LAB L100.2620 2.0-7.7 X10 3/uL Normal Absolute Neut 5.5 LAB L100.2720 0.83-4.51 X10 3/ul Normal Absolute Lymph 1.23 Performed By: #### L100.0100 #### [facility] [address] [place], [place], [id number] BASIC METABOLIC Collected: 01/27/2018 Status: F Source: CIARAN PROFILE (BMP) 8:55 PM [facility] REPOSITORY TYPE CODE TESTS RESULT OUT OF RANGE REFERENCE UNITS LAB L501.0100 74-106 mg/dL High GLU 352 Result Comment: Glucose result greater than or equal to 200 mg/dL suggests DIABETES MELLITUS per A.D.A. criteria. Please note revised GLUCOSE reference range effective 2017. LAB L501.1000 7-18 mg/dL High BUN 23 LAB L501.1100 0.55-1.02 mg/dL High CREAT,SERUM 4.40 Result Comment: The validity of the calculated GFR AND GFRAA in patients over 70 years has not been determined. Clinical correlation is essential. LAB L501.1110 >60 mL/min Low EST GFR 12 Result Comment: Non- GFR Calc LAB L501.1115 >60 mL/min Low EST GFR - AA 14 Result Comment: GFR Calc LAB L501.1255 ml/min Normal Estimated CRCL 15.27 LAB L501.1300 10-20 RATIO Low BUN/CRE 5.2 LAB L501.2200 8.5-10 mg/dL Low .1 CA 7.8 LAB L501.5300 136-14 mmol/L Normal 5 NA 139 LAB L501.5600 3.5-5. mmol/L Low 1 K 3.4 LAB L501.5900 98-107 mmol/L Low CL 95 LAB L501.6100 21.0-3 mmol/L High 2.0 CO2 34.0 LAB L501.6200 5-15 Normal GAP 10 Performed By: #### L500.2500 #### [facility] [address] [place], [place], [address] Observed: 01/27/2018 Status: F Source: CIARAN CDIFF (MOLECULAR) 8:55 PM [facility] REPOSITORY Is the patient receiving laxatives? N New/unexplained onset of 3 or more stools in past 24 hrs? Y Order Date: 01/27/18 Cdiff-Molecular Normal Reference Range = Negative C. Diff DNA Negative- No toxigenic C. Diff DNA Detected NAAT METHOD Testing was performed using nucleic acid amplification Performed By: #### M100.6796 #### [facility] [address] [place], [place], [address] EMERGENCY DEPARTMENT Observed: 01/23/2018 Status: F Source: [place] SUMMARY 3:09 AM [facility] REPOSITORY [facility] Medical Records Department [address] [place] [address] Emergency Department Summary 01/22/18 2247 MR#: [id number] Acct: [id number] Name: KOURTNEY REZA Rep #: [id number] : 1975 42 From: Matt Andersen MD PCP: Ric Mccrary MD Status: DEP ER - ER Visit Summary Date of Service: 01/22/18 Chief Complaint: Inflammation at colostomy site History of Present Illness: The patient is a 42 F status post colostomy in August of this year. She also has a history of insulin diabetes, anemia, end-stage renal disease dialysis, CAD and hypertension. Patient states she has had blistering today at her colostomy site when she claimed that she noticed a small amount of bleeding. She called her surgeon's office and they directed to the ER. She states she has some nausea but no vomiting. And has increased liquid stool through her colostomy. She denies any fever. Physical Examination: Appearing middle-aged female no acute distress. Vital signs are stable and she is afebrile. H EENT exam unremarkable. Neck nontender lungs clear to auscultation heart regular rhythm no murmur. Abdomen is soft and nondistended normal bowel sounds no peritoneal signs. She is a midline lower colostomy there is mild inflammation of the colonic mucosa. Currently there is no blood or active bleeding. She points area to have punctate hemorrhage areas that are extremely small and with no active bleeding or blood in the colostomy bag. She has bowel sounds. There is no hernias or masses appreciated. Moving all 4 extremities. Dialysis fistula left upper extremity. Neurologically she is awake and alert without focal motor deficits. Test Results: None Emergency Department Course and Treatment: Patient requested something for pain and nausea. She will be given 1 dose of subcu morphine and Phenergan and discharged home. She needs no workup at this time. This is just some minor bowel mucosal inflammation from diarrhea. There is no signs of bowel obstruction or any acute intra-abdominal pathology. Treatment Plan: Follow-up with her general surgeon Dr. Abran Zhang. Leafran for nausea Disposition: Discharge Impression: Acute colostomy inflammation secondary to diarrhea This note was generated with Dragon dictation software. It may contain incorrect words, spelling, and punctuation that were not noted in review of the chart prior to signing ED Disposition - Plan for ED Patient: Chief Complaint: Abd Pain Referrals: Ric Mccrary MD [Primary Care Provider] - What to do if you have Problems For any increased pain, shortness of breath, bleeding, nausea or vomiting, chest pain, or any unexpected problems, contact your Primary Care Provider. Call [facility] ([phone]) or report to the closest Emergency Room. Call 911 if necessary. 01/23/18 0309 <Electronically signed by Matt Andersen MD> Date Matt Andersen MD Cosigner Signature (If Indicated): Date CC: Ric Mccrary MD DISCHARGE INSTRUCTION Observed: 01/23/2018 Status: F Source: [facility]ARAN 3:09 AM [facility] REPOSITORY [facility] Medical Records Department [address] [place] [address] Discharge Instruction 01/22/18 2250 MR#: [id number] Acct: [id number] Name: KOURTNEY REZA Rep #: [id number] : 1975 42 From: Matt Andersen MD PCP: Ric Mccrary MD Status: DEP ER ED Disposition - Plan for ED Patient: Disposition: Home or Assisted Living Chief Complaint: Abd Pain Instructions: ED Abdominal Pain Unkn Cause Prescriptions: Ondansetron [Zofran Odt] 4 mg PO Q8H PRN PRN #10 tab PRN Reason: Nausea Referrals: Ric Mccrary MD [Primary Care Provider] - As Needed Petty Zhang MD [STAFF PHYSICIAN] - As Needed Additional Instructions: Zofran as needed for nausea. Plenty of fluids and rest. Call follow-up your primary care physician or your surgeon as needed. What to do if you have Problems For any increased pain, shortness of breath, bleeding, nausea or vomiting, chest pain, or any unexpected problems, contact your Primary Care Provider. Call [facility] ([phone]) or report to the closest Emergency Room. Call 911 if necessary. 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 The patient is a 41 year old female referred for endoscopy. Kourtney notes bloody stools per her stoma bag for the past few days with increased stool output/diarrhea, but basically diarrhea for the past 3 weeks. The patient has a complex history of complicated requiring debridement down to the gluteal area and necrotizing anal sphincter. I performed a loop colostomy in July. The patient presented on October 23 due to diarrhea and was found to have C. difficile in her stool. She was started on oral vancomycin and discharged. She had been doing reasonably well but then started noticing fever on November 01, and then up to 13 significantly liquidy stools into the stoma bag with now some pink to blood-tinged fluid. She denies significant abdominal pain. She notes no significant fever today. The patient notes no history of upper GI complaints. Kourtney has undergone prior endoscopy. I performed colonoscopy in the fall which demonstrated possibly lymphocytic colitis with increased intraepithelial lymphocytes in the terminal ileal biopsy . When I had seen her for diarrhea of unknown origin at that time for a normal-appearing terminal ileum and colon. The patient is following up with the plastic surgeon. He notes that are widely debrided perianal area has nearly healed. The patient is doing well with her colostomy but would very much like to have it reversed as possible. PAST MEDICAL HISTORY Diagnosis Date - Anemia of chronic disease - Anxiety - Cardiomyopathy ([facility]) last echo 08/07 showed normal LVF - CHF (congestive heart failure) ([facility]) - COPD (chronic obstructive pulmonary disease) ([facility]) - DM (diabetes mellitus) ([facility]) type 2, approx age22 - ESRD on dialysis ([facility]) - Hirsutism - Hypertension - Necrotizing fasciitis ([facility]) 2009 due to wound of abdomen and MRSA - GABRIEL (obstructive sleep apnea) no CPAP usage - Other congenital anomaly of uterus bicornuate - Proteinuria - PVD (peripheral vascular disease) ([facility]) - Retinopathy due to secondary diabetes mellitus ([facility]) VITALS: Blood pressure 134/72, pulse 88, weight 88.5 kg (195 lb 1.7 oz), last menstrual period 09/16/2013. On examination, the patient has a healing complex perianal and pilonidal wound area. There is a healing, if not nearly healed scar in the left posterior position. Digital rectal exam reveals a tight anus that allows one finger with gentle pressure, although this did cause the patient discomfort. With squeezing, there was felt to be a significant sphincter laxity or defect in the posterior to the left lateral position with what felt like sphincter contraction in the right anterior aspect, likely representing a significant keyhole-type defect in the sphincter. Assessment IMPRESSION: Desires reversal of colostomy, likely requires anal sphincter reconstruction PLAN: I plan to refer to the [facility] colorectal/anorectal disorders clinic. Diagnoses: (Z43.3) Attention to colostomy (HCC) (primary encounter diagnosis) Return to Clinic: The patient is instructed to follow- up with me as needed. 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 The patient is a 41 year old female referred for endoscopy. Kourtney notes bloody stools per her stoma bag for the past few days with increased stool output/diarrhea, but basically diarrhea for the past 3 weeks. The patient has a complex history of complicated requiring debridement down to the gluteal area and necrotizing anal sphincter. I performed a loop colostomy in July. The patient presented on October 23 due to diarrhea and was found to have C. difficile in her stool. She was started on oral vancomycin and discharged. She had been doing reasonably well but then started noticing fever on November 01, and then up to 13 significantly liquidy stools into the stoma bag with now some pink to blood-tinged fluid. She denies significant abdominal pain. She notes no significant fever today. The patient notes no history of upper GI complaints. Kourtney has undergone prior endoscopy. I performed colonoscopy in the fall which demonstrated possibly lymphocytic colitis with increased intraepithelial lymphocytes in the terminal ileal biopsy . When I had seen her for diarrhea of unknown origin at that time for a normal-appearing terminal ileum and colon. The patient is following up with the plastic surgeon. He notes that are widely debrided perianal area has nearly healed. The patient is doing well with her colostomy but would very much like to have it reversed as possible. PAST MEDICAL HISTORY Diagnosis Date - Anemia of chronic disease - Anxiety - Cardiomyopathy (HCC) last echo 08/07 showed normal LVF - CHF (congestive heart failure) ([facility]) - COPD (chronic obstructive pulmonary disease) ([facility]) - DM (diabetes mellitus) ([facility]) type 2, approx age22 - ESRD on dialysis ([facility]) - Hirsutism - Hypertension - Necrotizing fasciitis ([facility]) 2009 due to wound of abdomen and MRSA - GABRIEL (obstructive sleep apnea) no CPAP usage - Other congenital anomaly of uterus bicornuate - Proteinuria - PVD (peripheral vascular disease) ([facility]) - Retinopathy due to secondary diabetes mellitus ([facility]) VITALS: Blood pressure 134/72, pulse 88, weight 88.5 kg (195 lb 1.7 oz), last menstrual period 09/16/2013. On examination, the patient has a healing complex perianal and pilonidal wound area. There is a healing, if not nearly healed scar in the left posterior position. Digital rectal exam reveals a tight anus that allows one finger with gentle pressure, although this did cause the patient discomfort. With squeezing, there was felt to be a significant sphincter laxity or defect in the posterior to the left lateral position with what felt like sphincter contraction in the right anterior aspect, likely representing a significant keyhole-type defect in the sphincter. Assessment IMPRESSION: Desires reversal of colostomy, likely requires anal sphincter reconstruction PLAN: I plan to refer to the [facility] colorectal/anorectal disorders clinic. Diagnoses: (Z43.3) Attention to colostomy (HCC) (primary encounter diagnosis) Return to Clinic: The patient is instructed to follow- up with me as needed. Petty Zhang MD Referring Provider: SELF [[id number]] Allergies As of Date: 01/19/2018 Noted Allergy Reaction LATEX 01/20/2006 2 - Rash NSAIDS (NON-STEROIDAL ANTI-INFLAM*05/12/2017 15 - Contraindication- [facility] [place]* PERCOCET (OXYCODONE-ACETAMINOPHEN)10/28/2013 1 - Mental Status Change REGLAN (METOCLOPRAMIDE) 07/03/2013 11 - Vomiting Date Reviewed: 01/19/2018 Reviewed by: Alex Raymundo LPN - Fully Assessed Reason for Visit: Established Patient [[id number]] Cmt: Consult Reversal of ostomy Primary Visit Diagnosis:Attention to colostomy (HCC) [Z43.3] Prescriptions as of 01/19/2018 Sig: ISOSORBIDE MONONITRATE ER 60 * Take 1 tablet by mouth once d* PEN NEEDLE, DIABETIC 31 GAUGE* Use one needle per dose. 4 x * LISINOPRIL 20 MG TABLET Take 1 tablet by mouth once d* CALCIUM ACETATE 667 MG CAPSULE Take 1 capsule by mouth three* SODIUM BICARBONATE 650 MG TAB* 650 mg on T, Th and Sat per D* HYDRALAZINE 25 MG TABLET Take 1 tablet by mouth three * FAMOTIDINE 20 MG TABLET Take 1 tablet by mouth once d* CARVEDILOL 25 MG TABLET TAKE 1 TABLET BY MOUTH TWICE * FLUOXETINE 40 MG CAPSULE Take 1 capsule by mouth once * PROMETHAZINE 25 MG TABLET TAKE 1 TABLET BY MOUTH EVERY * OSTOMY SUPPLIES 4 X 4 WAFER Holister wafer Reorder #[id number] OSTOMY SUPPLIES Ostomy bag Holister brand #18* INSULIN ASPART U-100 100 UNI* 8 units three times a day wit* INSULIN GLARGINE (U-100) 100 * Inject 5 Units subcutaneously* ATORVASTATIN 10 MG TABLET Take 1 tablet by mouth once d* ALPRAZOLAM 0.5 MG TABLET Take 1 tablet by mouth as nee* ASPIRIN 81 MG TABLET,DELAYED * Take 1 tablet by mouth once d* NYSTATIN 100,000 UNIT/GRAM TO* Apply 1 application to affect* ERGOCALCIFEROL (VITAMIN D2) 5* Take 1 capsule by mouth once * IRON, CARBONYL 45 MG TABLET Take 1 tablet by mouth three * DILTIAZEM CR 240 MG CAP Take 1 capsule by mouth once * LANCETS Test blood sugar(s) 4- 6 times* BLOOD SUGAR DIAGNOSTIC STRIPS Test blood sugar(s) 4- 6 times* PEN NEEDLE, DIABETIC 29 GAUGE* 1 Each once daily. BLOOD SUGAR DIAGNOSTIC STRIPS Test blood sugar(s) 4 times d* ALBUTEROL (BULK) [facility] BLOOD-GLUCOSE METER KIT Freestyle LITE Meter Kit - HYDROCODONE 5 MG-ACETAMINOPHE* Take 1 tablet by mouth every * Medication notes this encounter HYDROCODONE 5 MG-ACETAMINOPHEN 325 MG TABLET >> Alex Raymundo LPN 01/19/2018 1:23 PM >> ALEX RAYMUNDO LPN MonJan 19, 2018 1:23 PM Please D/c Problem List As Of Date 01/19/2018 Noted Resolved VULVAL ABSCESS [N76.4] INVALID FOR*10/28/2013 Retinopathy due to secondary diabetes mellitus * Proteinuria [R80.9] Renal insufficiency [N28.9] 03/06/2017 Neuropathy [G62.9] INVALID FOR* HTN (hypertension) [I10] INVALID FOR* Anxiety [F41.9] INVALID FOR* More... Diabetes mellitus [E11.9] INVALID FOR* Cardiomyopathy, nonischemic [I42.8] INVALID FOR* Iron deficiency [E61.1] INVALID FOR* Anemia [D64.9] INVALID FOR* Scar condition and fibrosis of skin: Atrophic D*INVALID FOR* Rosacea [L71.9] INVALID FOR* Other acne [L70.8] INVALID FOR* Telangiectasia [I78.1] INVALID FOR* Irritant dermatitis [L24.9] INVALID FOR* Nodulocystic acne [L70.0] INVALID FOR* Dysfunctional uterine bleeding [N93.8] INVALID FOR* Vitamin D deficiency [E55.9] INVALID FOR* Asthma [J45.909] INVALID FOR* Obesity [E66.9] INVALID FOR* CHF (congestive heart failure) (HCC) [I50.9] INVALID FOR* Chronic renal failure, stage 5 (HCC) [N18.5] INVALID FOR* More... Complication of dialysis access insertion (HCC)*INVALID FOR* GABRIEL (obstructive sleep apnea) [G47.33] INVALID FOR* More... Diarrhea, functional [K59.1] INVALID FOR* More... Bloody stools [K92.1] INVALID FOR* More... C. difficile diarrhea [A04.72] INVALID FOR* More... Adenoma of left adrenal gland [D35.02] INVALID FOR* More... Encounter Status:Closed by PETTY ZHANG MD on 01/24/18 DISCHARGE INSTRUCTION Observed: 01/17/2018 Status: F Source: [place] 10:09 PM [facility] REPOSITORY [facility] Medical Records Department [facility] [place] [address] Discharge Instruction 01/17/188 MR#: [id number] Acct: [id number] Name: KOURTNEY REZA Rep #: [id number] : 1975 42 From: Coral Nation MD PCP: Ric Mccrary MD Status: DEP ER ED Disposition - Plan for ED Patient: Disposition: Home or Assisted Living Chief Complaint: Abd Pain Instructions: ED Abdominal Pain Unkn Cause Referrals: Ric Mccrary MD [Primary Care Provider] - Petty Zhang MD [STAFF PHYSICIAN] - What to do if you have Problems For any increased pain, shortness of breath, bleeding, nausea or vomiting, chest pain, or any unexpected problems, contact your Primary Care Provider. Call [facility] ([phone]) or report to the closest Emergency Room. Call 911 if necessary. 01/17/182208 <Electronically signed by Coral Nation MD> Date Coral Nation MD Cosigner Signature (If Indicated): Date CC: Ric Mccrary MD EMERGENCY DEPARTMENT Observed: 01/17/2018 Status: F Source: [place] SUMMARY 10:08 PM [facility] REPOSITORY [facility] Medical Records Department [address] [place] [address] Emergency Department Summary 01/17/182201 MR#: [id number] Acct: [id number] Name: KOURTNEY REZA Rep #: [id number] : 1975 42 From: Coral Nation MD PCP: Ric Mccrary MD Status: DEP ER - ER Visit Summary Date of Service: 01/17/18 Chief Complaint: Blood in ostomy bag History of Present Illness: The patient is a 42 F presenting with abdominal pain and blood in ostomy bag. Patient states that she was in her house trying to get around a tool cabinet. She states she tried to scoot through a small area and her colostomy scraped up against the edge of a toolbox. This was not a high force injury. She noted blood in the ostomy bag following this. No other complaints. She has a history of a diverting colostomy August [address] Zhang. She is scheduled to see him on Monday to discuss reversal. Physical Examination: Vitals are stable. Patient is afebrile. Alert no acute distress. HEENT exam is unremarkable. Neck is supple. Lungs are clear and equal bilaterally. Heart is regular rate and rhythm. Abdomen is soft, ostomy pink. blood in ostomy bag. Ecchymosis left lower quadrant Extremities are unremarkable. Skin is warm and dry. No focal neurologic deficit. Remainder of exam is unremarkable. Emergency Department Course and Treatment: CBC normal except for hemoglobin 9.9 which is at her baseline. Glucose 235, BUN 37, creatinine 5.6, near her baseline. Ostomy is cleaned. No lacerations. Inferior to the ostomy there is a small area of abrasion with clot. No active bleeding. Discussed with Dr. Luo covering for Dr. Zhang. She is advised to keep her appointment with Dr. Zhang on Monday. Patient is advised to return to ED for any worsening complaints. Disposition: Discharge home Impression: Abdominal pain, abdominal wall abrasion This note was generated with [employer] dictation software. It may contain incorrect words, spelling, and punctuation that were not noted in review of the chart prior to signing ED Disposition - Plan for ED Patient: Disposition: Home or Assisted Living Chief Complaint: Abd Pain Referrals: Ric Mccrary MD [Primary Care Provider] - What to do if you have Problems For any increased pain, shortness of breath, bleeding, nausea or vomiting, chest pain, or any unexpected problems, contact your Primary Care Provider. Call [facility] ([phone]) or report to the closest Emergency Room. Call 911 if necessary. 01/17/18 2200 <Electronically signed by Coral Nation MD> Date Coral Nation MD Cosigner Signature (If Indicated): Date CC: Ric Mccrary MD CBC W/DIFF, AUTOMATED Collected: 01/17/2018 Status: F Source: [place] 8:40 PM [facility] REPOSITORY TYPE CODE TESTS RESULT OUT OF RANGE REFERENCE UNITS LAB L100.1000 4.4-11.0 K/mm3 Normal WBC 7.0 LAB L100.1200 4.2-5.4 M/mm3 Low RBC 3.06 LAB L100.1300 12.0-15.0 g/dl Low HGB 9.9 LAB L100.1400 37-47 % Low HCT 31.4 LAB L100.1500 81-99 fL High MCV 102.6 LAB L100.1600 27.0-32.0 pg High MCH 32.4 LAB L100.1700 32-36 g/gl Low MCHC 31.5 LAB L100.1810 11.6-14.6 % High RDW CV 16.2 LAB L100.1820 35.1-43.9 fl High RDW SD 59.5 LAB L100.1900 150-450 K/mm3 Normal PLT 166 LAB L100.2000 6.2-12.0 fl Normal MPV 8.5 LAB L100.2100 47-70 % High NEUT% 74.2 LAB L100.2200 19-41 % Low LY% 18.2 LAB L100.2300 0-10 % Normal MONO% 3.3 LAB L100.2400 0-5 % Normal EO% 3.7 LAB L100.2500 0-1 % Normal BASO% 0.3 LAB L100.2550 0.0-0.9 % Normal IM GRAN % 0.300 Result Comment: IG% - Immature Granulocytes (promyelocytes, myelocytes and metamyelocytes) > 1% indicates that a LEFT SHIFT is Present. LAB L100.2620 2.0-7.7 X10 3/uL Normal Absolute Neut 5.2 LAB L100.2720 0.83-4.51 X10 3/ul Normal Absolute Lymph 1.27 Performed By: #### L100.0100 #### [facility] [address] [place], [address] BASIC METABOLIC Collected: 01/17/2018 Status: F Source: [place] PROFILE (BMP) 8:40 PM [facility] REPOSITORY TYPE CODE TESTS RESULT OUT OF RANGE REFERENCE UNITS LAB L501.0100 74-106 mg/dL High GLU 235 Result Comment: Glucose result greater than or equal to 200 mg/dL suggests DIABETES MELLITUS per A.D.A. criteria. Please note revised GLUCOSE reference range effective 2017. LAB L501.1000 7-18 mg/dL High BUN 37 LAB L501.1100 0.55-1.02 mg/dL High CREAT,SERUM 5.61 Result Comment: The validity of the calculated GFR AND GFRAA in patients over 70 years has not been determined. Clinical correlation is essential. LAB L501.1110 >60 mL/min Low EST GFR 9 Result Comment: Non- GFR Calc LAB L501.1115 >60 mL/min Low EST GFR - AA 11 Result Comment: GFR Calc LAB L501.1255 ml/min Normal Estimated CRCL 11.98 LAB L501.1300 10-20 RATIO Low BUN/CRE 6.6 LAB L501.2200 8.5-10 mg/dL Low .1 CA 8.4 LAB L501.5300 136-14 mmol/L Normal 5 NA 138 LAB L501.5600 3.5-5. mmol/L Normal 1 K 4.3 LAB L501.5900 98-107 mmol/L Normal CL 101 LAB L501.6100 21.0-3 mmol/L Normal 2.0 CO2 26.0 LAB L501.6200 5-15 Normal GAP 11 Performed By: #### L500.2500 #### [facility] [address] [place] [address]. [place], [address] PROGRESS Observed: 01/16/2018 Status: COMPLETED Source: [place] 3:25 PM [facility] REPOSITORY HN ID: [id number] Author: Chip (Cayden) Sherrill Service: (none) Author Type: Registered Nurse Type: Progress Notes Filed: 01/16/2018 3:32 PM Note Text: TRANSITION CARE MANAGEMENT (TCM) FOLLOW-UP NOTE Provider Action/FYI Medication list to be reviewed by PCP Patient identified by name and date of : YES Spoke to Dr. Martinez's office and nurse Yarelis at [facility] Summary: Medication list reviewed per Dr. Martinez's consult note at [facility] during admission and discharge summary Yarelis, clinical nurse at [facility] states they hand the med list to patient's to update so unless the patient tells them there is a change they may not have the most updated list. She will fax the latest list they have for pt. CAYDEN Corcoran Dr.'s office, Wendy states pt is not seen in their office, she is a pt of Dr. Martinez at [facility] in [place]. All notes and med changes would be made there. Chip Tolliver RN Environmental Issues Instructor plan for next outreach: Will follow up 3 weeks Signature Chip Tolliver RN January 16, 2018 PROGRESS Observed: 01/16/2018 Status: COMPLETED Source: [place] 11:34 AM [facility] REPOSITORY HNO ID: [id number] Author: Ric Mccrary Service: (none) Author Type: Physician Type: Progress Notes Filed: 01/16/2018 4:26 PM Note Text: Did they see her in hospital? Can we verify with hospital notes or dialysis if she is to be on both norvasc and diltiazem? PROGRESS Observed: 01/16/2018 Status: COMPLETED Source: [place] 11:29 AM [facility] REPOSITORY HNO ID: [id number] Author: Chip López) Sherrill Service: (none) Author Type: Registered Nurse Type: Progress Notes Filed: 01/16/2018 11:29 AM Note Text: TC from Bob at Dr. Underwood's office, states patient has not been seen in their office since 2012. Chip Tolliver RN January 16, 2018 11:29 AM 12 LEAD ELECTROCARDIOGRAM Observed: 01/15/2018 Status: F Source: [place] 2:47 PM [facility] REPOSITORY [facility] Cardiovascular Services [address] [place] [address] 12 Lead EKG 01/11/18 1100 MR#: [id number] Acct: [id number] Name: KOURTNEY REZA Rep #: [id number] : 1975 42 From: Wm Underwood MD Attending Dr: Rivka Charles Status: DIS AIDEN Ordering Dr: Estrella Solano DO Date: 01/11/18 Location: U Sex: F C Admitted: 01/11/18 Test Reason : SOB/CP Blood Pressure : / mmHG Vent. Rate : 097 BPM Atrial Rate : 097 BPM P-R Int : 132 ms QRS Dur : 092 ms QT Int : 378 ms P-R-T Axes : 063 056 094 degrees QTc Int : 480 ms Normal sinus rhythm Prolonged QT Abnormal ECG Confirmed by WM UNDERWOOD ([id number]), web editor GISELA YOUNG ([id number]) on 01/15/2018 2:46:52 PM Referred By: CAITLIN Confirmed By:WM UNDERWOOD 01/15/18 1446 Date Wm Underwood MD CC: Rivka Charles; Estrella Solano DO; Ric Mccrary MD Signed PROGRESS Observed: 01/15/2018 Status: COMPLETED Source: [place] 10:33 AM [facility] REPOSITORY HNO ID: [id number] Author: Chip (Cayden) Sherrill Service: (none) Author Type: Registered Nurse Type: Progress Notes Filed: 01/16/2018 11:20 AM Note Text: TRANSITION CARE MANAGEMENT (TCM) INITIAL CONTACT Provider Action/FYI: Stools thicker and no NANDV Tooth pain improved to f/u w/ dentist, no appt yet No SOB or cough Seeing Dr. Zhang re: ostomy reversal on Monday Pt had not been taking diltiazem and amlodipine but just found medication bottles and restarted. Dr. Underwood discontinued Isosorbide and will recheck pt in 6 months. Requested last visit note from cardiology to be faxed to [facility] Patient phones requesting refills as follows: Pending Prescriptions Disp Refills ATORVASTATIN 20 MG TABLET 30 tablet 5 Sig: Take 1 tablet by mouth daily at bedtime. For cholesterol. CHARLEEN: No PEN NEEDLE, DIABETIC 31 GAUGE X 5/16 100 Each 11 Sig: Use one needle per dose. 4 x per day. CHARLEEN: No LISINOPRIL 20 MG TABLET 30 tablet 5 Sig: Take 1 tablet by mouth once daily. CHARLEEN: No Please review and advise. Initial contact with patient post discharge, spoke to . TC to patient, left message to call [facility] back regarding scheduling appt with PCP Chip Tolliver RN January 16, 2018 10:28 AM TC to patient, left message asking pt to please call [facility] back regarding hospital discharge Chip Tolliver RN January 15, 2018 10:34 AM Patient identified by name and . SUMMARY: -Pt discharged from [facility] on 01/12. -Follow up appointment on TBD. -Medication review done No. -Admitted for: (1) Intractable N/V/D, Possible Viral Gastroenteritis versus possible intolerance to Clindamycin (2) Recent Tooth Abscess (3) ESRD on HD (4) Chronic systolic CHF, CM, Diastolic DysFx, CAD (5) Diabetes mellitus type II w/ Neuropathy, Gastroparesis (6) Hypertension (7) Hyperlipidemia (8) Depression and Anxiety (9) Tobacco Abuse (10) Obesity (11) GERD (12) AOCD, Fe deficiency anemia CONCERNS: Ostomy stool is thicker and less productive, no NANDV Tooth pain improved, no appt to see dentist yet NEW MEDICATIONS: Amoxicillin/Potassium Clav [Augmentin 500-125 Tablet] 1 ea PO UD 10 Days MEDS HELD/DISCONTINUED: None BRIEF HOSPITAL COURSE: The patient is a 42 year old F admitted 01/11/2018 due to abdominal pain, nausea, vomiting, loose stools in colostomy. She has a past medical history of type 2 diabetes mellitus with neuropathy, gastroparesis, hypertension, hyperlipidemia, tobacco dependence, obesity, systolic CHF, CAD status post 2013 catheterization with mild LAD disease, anxiety, depression, anemia of chronic disease, iron deficiency anemia. Suspect viral gastroenteritis and/or diarrhea related to clindamycin. Patient received gentle IV fluids. Stool cultures and C. difficile negative. Patient was on Unasyn for a recent tooth abscess. This was switched to renal dose Augmentin at discharge. Nephrology consulted. Patient received hemodialysis prior to discharge. Patient's nausea, vomiting resolved. Able to tolerate regular diet. Patient states she had an appointment with Dr. Dill this afternoon to talk about reversing colostomy. She canceled this appointment due to being in the hospital. Recommend rescheduling this appointment. Other chronic medical conditions as noted above are stable at this time. Patient stable for discharge home with further follow-up with primary care physician, Dr. Dill and nephrology. Patient seen exam prior to discharge. Alert, oriented, no acute distress. Denies further nausea, vomiting, abdominal pain. No further diarrhea. Lungs clear, diminished. Heart rate regular rate and rhythm, no murmur. Abdomen soft, nontender, obese. No edema. Neuro grossly intact. Normal affect. Vital signs stable. Discharge Diet: 1800 Calorie Control Diet, Carb Control Diet Ric Mccrary MD [Primary Care Provider] - Please follow up with your Primary Care Physician in: Follow- up within 3-5 days to review admission. Please Follow Up With: Dentist,Your When: Please contact your dentist to notify them of antibiotic change. Please Follow Up With: Petty Zhang MD When: Please contact his office to re-schedule your appt. Chip Tolliver RN CNPTOUTREACH Observed: 01/15/2018 Status: COMPLETED Source: [place] 12:00 AM [facility] REPOSITORY Patient Outreach (FAMPWS) KOURTNEY REZA ([id number]) 1975 F TRN Date Time Provider Department 01/15/18 [facility]CAYDEN[facility] your visit today, we recorded the following information about you: Chip Tolliver RN 01/16/2018 11:20 AM Signed TRANSITION CARE MANAGEMENT (TCM) INITIAL CONTACT Provider Action/FYI: Stools thicker and no NANDV Tooth pain improved to f/u w/ dentist, no appt yet No SOB or cough Seeing Dr. Zhang re: ostomy reversal on Monday Pt had not been taking diltiazem and amlodipine but just found medication bottles and restarted. Dr. Underwood discontinued Isosorbide and will recheck pt in 6 months. Requested last visit note from cardiology to be faxed to [facility] Patient phones requesting refills as follows: Pending Prescriptions Disp Refills ATORVASTATIN 20 MG TABLET 30 tablet 5 Sig: Take 1 tablet by mouth daily at bedtime. For cholesterol. CHARLEEN: No PEN NEEDLE, DIABETIC 31 GAUGE X 5/16 100 Each 11 Sig: Use one needle per dose. 4 x per day. CHARLEEN: No LISINOPRIL 20 MG TABLET 30 tablet 5 Sig: Take 1 tablet by mouth once daily. CHARLEEN: No Please review and advise. Initial contact with patient post discharge, spoke to . TC to patient, left message to call [facility] back regarding scheduling appt with PCP Chip Tolliver RN January 16, 2018 10:28 AM TC to patient, left message asking pt to please call [facility] back regarding hospital discharge Chip Tolliver RN January 15, 2018 10:34 AM Patient identified by name and . SUMMARY: -Pt discharged from [facility] on 01/12. -Follow up appointment on TBD. -Medication review done No. -Admitted for: (1) Intractable N/V/D, Possible Viral Gastroenteritis versus possible intolerance to Clindamycin (2) Recent Tooth Abscess (3) ESRD on HD (4) Chronic systolic CHF, CM, Diastolic DysFx, CAD (5) Diabetes mellitus type II w/ Neuropathy, Gastroparesis (6) Hypertension (7) Hyperlipidemia (8) Depression and Anxiety (9) Tobacco Abuse (10) Obesity (11) GERD (12) AOCD, Fe deficiency anemia CONCERNS: Ostomy stool is thicker and less productive, no NANDV Tooth pain improved, no appt to see dentist yet NEW MEDICATIONS: Amoxicillin/Potassium Clav [Augmentin 500-125 Tablet] 1 ea PO UD 10 Days MEDS HELD/DISCONTINUED: None BRIEF HOSPITAL COURSE: The patient is a 42 year old F admitted 01/11/2018 due to abdominal pain, nausea, vomiting, loose stools in colostomy. She has a past medical history of type 2 diabetes mellitus with neuropathy, gastroparesis, hypertension, hyperlipidemia, tobacco dependence, obesity, systolic CHF, CAD status post 2013 catheterization with mild LAD disease, anxiety, depression, anemia of chronic disease, iron deficiency anemia. Suspect viral gastroenteritis and/or diarrhea related to clindamycin. Patient received gentle IV fluids. Stool cultures and C. difficile negative. Patient was on Unasyn for a recent tooth abscess. This was switched to renal dose Augmentin at discharge. Nephrology consulted. Patient received hemodialysis prior to discharge. Patient's nausea, vomiting resolved. Able to tolerate regular diet. Patient states she had an appointment with Dr. Dill this afternoon to talk about reversing colostomy. She canceled this appointment due to being in the hospital. Recommend rescheduling this appointment. Other chronic medical conditions as noted above are stable at this time. Patient stable for discharge home with further follow-up with primary care physician, Dr. Dill and nephrology. Patient seen exam prior to discharge. Alert, oriented, no acute distress. Denies further nausea, vomiting, abdominal pain. No further diarrhea. Lungs clear, diminished. Heart rate regular rate and rhythm, no murmur. Abdomen soft, nontender, obese. No edema. Neuro grossly intact. Normal affect. Vital signs stable. Discharge Diet: 1800 Calorie Control Diet, Carb Control Diet Ric Mccrary MD [Primary Care Provider] - Please follow up with your Primary Care Physician in: Follow- up within 3-5 days to review admission. Please Follow Up With: Dentist,Your When: Please contact your dentist to notify them of antibiotic change. Please Follow Up With: Petty Zhang MD When: Please contact his office to re-schedule your appt. CAYDEN Corcoran RN 01/16/2018 11:29 AM Signed TC from Bob at Dr. Underwood's office, states patient has not been seen in their office since 2012. Chip Tolliver RN January 16, 2018 11:29 AM Ric Mccrary MD 01/16/2018 4:26 PM Signed Did they see her in hospital? Can we verify with hospital notes or dialysis if she is to be on both norvasc and diltiazem? Chip Tolliver RN 01/16/2018 3:32 PM Signed TRANSITION CARE MANAGEMENT (TCM) FOLLOW-UP NOTE Provider Action/FYI Medication list to be reviewed by PCP Patient identified by name and date of : YES Spoke to Dr. Martinez's office and Yarelis nurse at [facility] Summary: Medication list reviewed per Dr. Martinez's consult note at [facility] during admission and discharge summary Yarelis, clinical nurse at [facility] states they hand the med list to patient's to update so unless the patient tells them there is a change they may not have the most updated list. She will fax the latest list they have for pt. CAYDEN Corcoran Dr.'s office, Wendy states pt is not seen in their office, she is a pt of Dr. Martinez at [facility] in [place]. All notes and med changes would be made there. Chip Tolliver RN Environmental Issues Instructor plan for next outreach: Will follow up 3 weeks Signature Chip Tolliver RN January 16, 2018 Allergies As of Date: 01/15/2018 Noted Allergy Reaction LATEX 01/20/2006 2 - Rash NSAIDS (NON-STEROIDAL ANTI-INFLAM*05/12/2017 15 - Contraindication- [facility] [place]* PERCOCET (OXYCODONE-ACETAMINOPHEN)10/28/2013 1 - Mental Status Change REGLAN (METOCLOPRAMIDE) 07/03/2013 11 - Vomiting Date Reviewed: 11/02/2017 Reviewed by: Trinidad Linton LPN - Fully Assessed Reason for Visit: Transition Of Care [4074] Primary Visit Diagnosis:Hypertension, unspecified type [I10] Other Visit Diagnoses:Type 2 diabetes mellitus with retinopathy of both eyes, with long-term current use of insulin, macular edema presence unspecified, unspecified retinopathy severity ([facility]) [E11.319, Z79.4] Diabetes mellitus due to underlying condition with chronic kidney disease on chronic dialysis, with long-term current use of insulin (HCC) [E08.22, N18.6, Z79.4, Z99.2] Chest pain, unspecified type [R07.9] Order(s):insulin needles, DISPOSABLE, (PEN NEEDLE) 31 gauge x / ndleUse one needle per dose. 4 x per day.Disp: 100 EachRfl: 11 lisinopril (ZESTRIL, PRINIVIL) 20 mg tabletTake 1 tablet by mouth once daily.Disp: 30 tabletRfl: 5 calcium acetate (PHOSLO) 667 mg capsuleTake 1 capsule by mouth three times daily. Per Dr. Mcdaniel: Rfl: sodium bicarbonate 650 mg mg on T, Th and Sat per Dr. Mcdaniel: Rfl: hydrALAZINE (APRESOLINE) 25 mg tabletTake 1 tablet by mouth three times daily. Per Dr. Mcdaniel: Rfl: isosorbide dinitrate (ISORDIL, SORBITRATE) 20 mg tabletTake 1 tablet by mouth three times daily.Disp: 90 tabletRfl: 3 famotidine (PEPCID) 20 mg tabletTake 1 tablet by mouth once daily.Disp: Rfl: Prescriptions as of 01/15/2018 Sig: PEN NEEDLE, DIABETIC 31 GAUGE* Use one needle per dose. 4 x * LISINOPRIL 20 MG TABLET Take 1 tablet by mouth once d* CARVEDILOL 25 MG TABLET TAKE 1 TABLET BY MOUTH TWICE * FLUOXETINE 40 MG CAPSULE Take 1 capsule by mouth once * PROMETHAZINE 25 MG TABLET TAKE 1 TABLET BY MOUTH EVERY * OSTOMY SUPPLIES 4 X 4 WAFER Holister wafer Reorder #[id number] OSTOMY SUPPLIES Ostomy bag Holister brand #18* INSULIN ASPART U-100 100 UNI* 8 units three times a day wit* INSULIN GLARGINE (U-100) 100 * Inject 5 Units subcutaneously* ATORVASTATIN 10 MG TABLET Take 1 tablet by mouth once d* ALPRAZOLAM 0.5 MG TABLET Take 1 tablet by mouth as nee* ASPIRIN 81 MG TABLET,DELAYED * Take 1 tablet by mouth once d* ERGOCALCIFEROL (VITAMIN D2) 5* Take 1 capsule by mouth once * DILTIAZEM CR 240 MG CAP Take 1 capsule by mouth once * LANCETS Test blood sugar(s) 4- 6 times* BLOOD SUGAR DIAGNOSTIC STRIPS Test blood sugar(s) 4- 6 times* PEN NEEDLE, DIABETIC 29 GAUGE* 1 Each once daily. BLOOD SUGAR DIAGNOSTIC STRIPS Test blood sugar(s) 4 times d* BLOOD-GLUCOSE METER KIT Freestyle LITE Meter Kit - CALCIUM ACETATE 667 MG CAPSULE Take 1 capsule by mouth three* SODIUM BICARBONATE 650 MG TAB* 650 mg on T, Th and Sat per D* HYDRALAZINE 25 MG TABLET Take 1 tablet by mouth three * ISOSORBIDE DINITRATE 20 MG TA* Take 1 tablet by mouth three * FAMOTIDINE 20 MG TABLET Take 1 tablet by mouth once d* NYSTATIN 100,000 UNIT/GRAM TO* Apply 1 application to affect* IRON, CARBONYL 45 MG TABLET Take 1 tablet by mouth three * ALBUTEROL (BULK) MISC Medication notes this encounter COMPOUNDED PRESCRIPTION >> Chip Tolliver RN 01/16/2018 11:13 AM >> CHIP TOLLIVER Jan 16, 2018 11:13 AM Course of medication completed Problem List As Of Date 01/15/2018 Noted Resolved VULVAL ABSCESS [N76.4] INVALID FOR*10/28/2013 Retinopathy due to secondary diabetes mellitus * Proteinuria [R80.9] Renal insufficiency [N28.9] 03/06/2017 Neuropathy [G62.9] INVALID FOR* HTN (hypertension) [I10] INVALID FOR* Anxiety [F41.9] INVALID FOR* More... Diabetes mellitus [E11.9] INVALID FOR* Cardiomyopathy, nonischemic [I42.8] INVALID FOR* Iron deficiency [E61.1] INVALID FOR* Anemia [D64.9] INVALID FOR* Scar condition and fibrosis of skin: Atrophic D*INVALID FOR* Rosacea [L71.9] INVALID FOR* Other acne [L70.8] INVALID FOR* Telangiectasia [I78.1] INVALID FOR* Irritant dermatitis [L24.9] INVALID FOR* Nodulocystic acne [L70.0] INVALID FOR* Dysfunctional uterine bleeding [N93.8] INVALID FOR* Vitamin D deficiency [E55.9] INVALID FOR* Asthma [J45.909] INVALID FOR* Obesity [E66.9] INVALID FOR* CHF (congestive heart failure) (HCC) [I50.9] INVALID FOR* Chronic renal failure, stage 5 (HCC) [N18.5] INVALID FOR* More... Complication of dialysis access insertion (HCC)*INVALID FOR* GABRIEL (obstructive sleep apnea) [G47.33] INVALID FOR* More... Diarrhea, functional [K59.1] INVALID FOR* More... Bloody stools [K92.1] INVALID FOR* More... C. difficile diarrhea [A04.72] INVALID FOR* More... Adenoma of left adrenal gland [D35.02] INVALID FOR* More... Prescriptions ordered this encounter Disp Refills Start End ATORVASTATIN 20 MG TABLET 30 t* 5 01/16/2018 01/16/2018 Route: ORAL Sig: Take 1 tablet by mouth daily at bedtime. For cholesterol. PEN NEEDLE, DIABETIC 31 GAUGE X 12/06 100 * 11 01/16/2018 Sig: Use one needle per dose. 4 x per day. LISINOPRIL 20 MG TABLET 30 t* 5 01/16/2018 Route: ORAL Sig: Take 1 tablet by mouth once daily. CALCIUM ACETATE 667 MG CAPSULE 01/16/2018 Class: Med Update Route: ORAL Sig: Take 1 capsule by mouth three times daily. Per Dr. Martinez SODIUM BICARBONATE 650 MG TABLET 01/16/2018 Class: Med Update Si mg on T, Th and Sat per Dr. Martinez HYDRALAZINE 25 MG TABLET 01/16/2018 Class: Med Update Route: ORAL Sig: Take 1 tablet by mouth three times daily. Per Dr. Martinez ISOSORBIDE DINITRATE 20 MG TABLET 90 t* 3 01/16/2018 Route: ORAL Sig: Take 1 tablet by mouth three times daily. FAMOTIDINE 20 MG TABLET 01/16/2018 Class: Med Update Route: ORAL Sig: Take 1 tablet by mouth once daily. Medications Discontinued During This Encounter atorvastatin (LIPITOR) 20 mg tablet 30 t* 5 06/29/2017 01/16/2018 Route: ORAL Sig: Take 1 tablet by mouth daily at bedtime. For cholesterol. Disc: Reason for discontinue is not on file. insulin needles, DISPOSABLE, (PEN NE* 100 * 11 06/29/2017 01/16/2018 Sig: Use one needle per dose. 4 x per day. Disc: Reason for discontinue is not on file. lisinopril (ZESTRIL, PRINIVIL) 20 mg* 01/16/2018 Class: Historical Med Route: ORAL Sig: Take 20 mg by mouth once daily. Disc: Reason for discontinue is not on file. vancomycin (VANCOCIN) 125 mg capsule 0 10/26/2017 01/16/2018 Class: Historical Med Route: ORAL Sig: Take 1 capsule by mouth every 6 hours. Disc: Reason for discontinue is not on file. isosorbide dinitrate (ISORDIL, SORBI* 11/20/2017 01/16/2018 Class: Med Update Route: ORAL Sig: Take 1 tablet by mouth three times daily. Disc: Reason for discontinue is not on file. atorvastatin (LIPITOR) 20 mg tablet 30 t* 5 01/16/2018 01/16/2018 Route: ORAL Sig: Take 1 tablet by mouth daily at bedtime. For cholesterol. Disc: Reason for discontinue is not on file. Miralax / Gatorade Prep 11/02/2017 01/16/2018 Class: OTC Sig: Miralax 238 gm bottle, (2) 32 oz bottles of Gatorade, AND 4 Dulcolax 5 mg tabs- as directed per instructions Disc: Reason for discontinue is not on file. budesonide, enteric coated (ENTOCORT* 60 c* 0 06/30/2017 01/16/2018 Route: ORAL Sig: Take 2 capsules by mouth once daily. Disc: Reason for discontinue is not on file. amLODIPine (NORVASC) 10 mg tablet 90 t* 0 06/29/2017 01/16/2018 Route: ORAL Sig: Take 1 tablet by mouth once daily. Disc: Reason for discontinue is not on file. Encounter Status:Closed by CHIP TOLLIVER on 01/16/18 DISCHARGE SUMMARY Observed: 01/12/2018 Status: F Source: [place] 1:16 PM [facility] [place] REPOSITORY [facility] Medical Records Department [address] [place] [address] Discharge Summary 01/12/18 1137 MR#: [id number] Acct: [id number] Name: KOURTNEY REZA Rep #: [id number] : 1975 42 From: Fiorella Gan [employer]ER-C PCP: Ric Mccrary MD Status: DIS AIDEN Y Location: [place] [address] ADDENDUM by Rivka Charles on 01/12/18 at 1316 Code Visit ATTENDING PHYSICIAN DISCHARGE NOTE: I have seen and examined the patient independently and agree with the assessment, plan, history per Fiorella Gan as noted. Discharge Diagnoses: (1) Intractable N/V/D, Possible Viral Gastroenteritis versus possible intolerance to Clindamycin (2) Recent Tooth Abscess (3) ESRD on HD (4) Chronic systolic CHF, CM, Diastolic DysFx, CAD (5) Diabetes mellitus type II w/ Neuropathy, Gastroparesis (6) Hypertension (7) Hyperlipidemia (8) Depression and Anxiety (9) Tobacco Abuse (10) Obesity (11) GERD (12) AOCD, Fe deficiency anemia Discharge Summary: The patient is a 42 y/o F w/ PMHx: ESRD on HD T//Sat missing 01/11/18 HD secondary to acute illness, Diabetes mellitus type II w/ Neuropathy and Gastroparesis, HTN, HLD, Tobacco use, Obesity, LV Diastolic Dysfx, Systolic CHF, CAD s/p 2013 catheterization w/ mild LAD disease w/ medical therapy only, Anxiety and Depression, AOCD/Fe deficiency anemia who presented to the [facility] ED on 01/11/18 with history of ongoing, unrelenting nausea, emesis, increased stool output, more liquid than normal from ostomy and concurrent cramping and intermittently sharp abdominal pain x 5 days, seen 2 days prior in the ED and at that time administered phenergan with improvement. In the ED work-up included T 98, heart rate 99, BP 164/84 did increase to 210/94 secondary to inability to take her oral hypertensive regimen this morning-->improved to 155/76, respiratory rate 18, 95% on 2 L nasal cannula, CBC with WBC 7.4, hemoglobin 9.2, platelet 147 with mild left shift, CMP with potassium 5.2, carbon dioxide 20, BUN/creatinine 56/6.85, glucose 169, lipase 283, UA not market appearing and specific gravity moderate, CT A/P with small bilateral pleural effusions with progressive increased interstitial markings in both lower lobes, stable appearance of the abdomen. In the emergency room patient gently hydrated and was medicated with IV hydralazine in addition to Phenergan and morphine. Patient admitted w/ N/V/increased ostomy output, ? Viral Gastroenteritis. Patient was gently hydrated given missed HD and underlying CHF history. Stool cultures were obtained and unremarkable. Patient slowly transitioned from clears-->eventual ADA diet which was tolerated with resolution of nausea and emesis with PRN antiemetics. Patient was also transitioned to unasyn upon admission from clindamycin outpatient for tooth abscess infection (unable to tolerate for days she noted upon admission) with discharge regimen transitioned to renally/ESRD/HD dosing of augmentin with encouraged dental follow-up and to update their office on regimen changes. Patient discharged to home in stable improved condition with recommended PCP follow-up. Discharge Time: > 35 Minutes DAY OF DISCHARGE PROGRESS NOTE: Subjective: Patient without acute event overnight per self and nursing report. Patient states she is tolerating her diet and advancement without issue with no further nausea or emesis. Patient denies fever, chills, chest pain or dyspnea. Patient agreeable to discharge to home. Patient will be discharged with follow-up with primary care physician within 3-5 days in addition to previously arranged appt with Dr. Zhang for ongoing intermittent GI issues. Objective: T 98.9, heart rate 78, BP 112/53, respiratory rate 18, 96% on room air. Physical Examination: General: awake, alert, oriented x 3 and cooperative, seated upright in the bed, NAD. Skin: normal color, turgor, no icterus, cyanosis. HEENT: AT/NC, EOMI, PERRLA, improved MMM. Lungs: Diminished BS BL, > bases, moderate effort, no rales, ronchi or wheezing. Heart: Regular rate and rhythm; no gallop, rub audible. Abdomen: soft, obese, NTTP, ND, normalized BS. Neurological: patient awake, alert, oriented x 3; cognitive function appears intact upon questioning,; pupils equally reactive to light and accomodation; cranial nerves II-XII grossly normal, moving all 4 extremities, strength mildly globally decreased. Psychiatric: affect appears normal, no acute evidence of depressive or anxiety feelings. Assessment and Plan: Please see hospital summary above. OBSV E AND M: [id number] Observation care discharge 01/12/18 1316 <Electronically signed by Rivka Charles > Date Rivka Charles cc: SATNAM Gan; Rivka Charles; Ric Mccrary MD * Signed Discharge Date and Diagnosis Date of Admission: 01/11/18 Date of Discharge: 01/12/18 - Primary Discharge Diagnosis Active and Suspected Problems 1. Nausea, vomiting, diarrhea-suspected viral gastroenteritis- stool for C. difficile and enteric pathogen negative. 2. Recent tooth abscess - Secondary Discharge Diagnosis Chronic Problems ESRD (end stage renal disease) on dialysis (Chronic) Decubitus ulcer, stage III (Chronic) CAD (coronary artery disease) (Chronic) Anemia, chronic disease (Chronic) Pilonidal cyst with abscess (Chronic) GABRIEL (obstructive sleep apnea) (Chronic) ESRD on dialysis (Chronic) Depression (Chronic) Anxiety (Chronic) HTN (hypertension) (Chronic) Nonischemic cardiomyopathy (Chronic) With ejection fraction 45 - 50%; with angiographically normal coronary arteries 05/2013; follows up with Dr. Underwood S/P repair of PDA (patent ductus arteriosus) (Chronic) At young age Diabetes mellitus type 1 (Chronic) Hyperlipidemia (Chronic) Obesity (BMI 30.0-34.9) (Chronic) Gastroparesis (Chronic) Hospital Course and Treatment Imaging Results: Diagnostic Data Abdomen/Pelvis CT 01/11/18 09:20 IMPRESSION: Small bilateral pleural effusions with progressive increased interstitial markings in both lower lobes. An element of CHF should be ruled out. Stable appearance of the abdomen. Electronically Signed: Josh Hlil MD at 10:33 EDT Tel [phone], Service support , Consultations 01/11/18 12:31 Consult: Onc/Wound/grease rack worker Routine Comment: 01/11/18 16:39 Consult: Onc/Wound/grease rack worker Routine Comment: Reason for Consult:: COLOSTOMY Dr. Martinez- nephrology Operations: None Procedures: None Summary of Care Provided: The patient is a 42 year old F admitted 01/11/2018 due to abdominal pain, nausea, vomiting, loose stools in colostomy. She has a past medical history of type 2 diabetes mellitus with neuropathy, gastroparesis, hypertension, hyperlipidemia, tobacco dependence, obesity, systolic CHF, CAD status post 2013 catheterization with mild LAD disease, anxiety, depression, anemia of chronic disease, iron deficiency anemia. Suspect viral gastroenteritis and/or diarrhea related to clindamycin. Patient received gentle IV fluids. Stool cultures and C. difficile negative. Patient was on Unasyn for a recent tooth abscess. This was switched to renal dose Augmentin at discharge. Nephrology consulted. Patient received hemodialysis prior to discharge. Patient's nausea, vomiting resolved. Able to tolerate regular diet. Patient states she had an appointment with Dr. Dill this afternoon to talk about reversing colostomy. She canceled this appointment due to being in the hospital. Recommend rescheduling this appointment. Other chronic medical conditions as noted above are stable at this time. Patient stable for discharge home with further follow-up with primary care physician, Dr. Dill and nephrology. Patient seen exam prior to discharge. Alert, oriented, no acute distress. Denies further nausea, vomiting, abdominal pain. No further diarrhea. Lungs clear, diminished. Heart rate regular rate and rhythm, no murmur. Abdomen soft, nontender, obese. No edema. Neuro grossly intact. Normal affect. Vital signs stable. Patient seen exam prior to discharge. Physical assessment as noted above. Patient is stable for discharge home with the follow-up her conditions as noted above. Discharge Diet: 1800 Calorie Control Diet, Carb Control Diet Discharge Activity: Return to Normal Activity May resume sexual activity in: 10-14 days Weight Bearing Status: Weight bearing as tolerated Call your doctor if you observe: Fever of 101 or Higher, Inability to urinate, Inability to have a bowel movement, Shortness of breath, Dizziness, Fainting spells, Chest pain, Uncontrolled pain, - - Recurrent intractable nausea, emesis or change in ostomy output. Home Medications: Medications to take at Discharge Diltiazem HCl [Tiazac] 240 mg PO DAILY 07/10/15 Aspirin [Aspirin, Baby] 81 mg PO DAILY@0800 01/26/16 Calcium Acetate [Phoslo Gel Cap] 667 mg PO TIDCM 01/26/16 Ergocalciferol [Vitamin D] 50,000 unit PO FR 01/26/16 Insulin Aspart [Novolog Flexpen] 8 units SC TIDCM 01/26/16 Insulin Glargine,Hum.rec.anlog [Lantus] 5 unit SQ QHS 01/09/17 proMETHazine tablet [Phenergan tablet] 25 mg PO Q6H PRN PRN #10 tablet 03/06/17 Lisinopril 20 mg PO DAILY 03/29/17 Sodium Bicarbonate 650 mg PO TUTHSA 03/29/17 Carvedilol [Coreg (Beta Lewis)] 25 mg PO BID 06/17/17 Fluoxetine HCl 40 mg PO DAILY 09/02/17 hydrALAZINE [Apresoline] 25 mg PO TID 11/05/17 Atorvastatin Calcium 10 mg PO QHS #30 tab 11/16/17 Isosorbide DN [Isordil] 20 mg PO TID #90 tab 11/16/17 ALPRAZolam [Xanax] 0.5 mg PO DAILY 11/21/17 Famotidine [Pepcid] 20 mg PO DAILY 11/21/17 Amoxicillin/Potassium Clav [Augmentin 500-125 Tablet] 1 ea PO UD 10 Days tab 01/12/18 Following Prescrptions Were Given to Patient: Amoxicillin/Potassium Clav [Augmentin 500-125 Tablet] 1 ea PO UD 10 Days tab Primary Care Physician: Ric Mccrary MD [Primary Care Provider] - Please follow up with your Primary Care Physician in: Follow- up within 3-5 days to review admission. Please Follow Up With: Dentist,Your When: Please contact your dentist to notify them of antibiotic change. Please Follow Up With: Petty Zhang MD When: Please contact his office to re-schedule your appt. Patient Instructions: Dental Abscess, ED Nausea Vomiting Disposition: Home Minutes spent on discharge:: 35 Patient Condition:: Stable Medical Necessity - Tobacco Use Smoking Status: Current every day smoker Tobacco Use: Cigarettes Meaningful Use Info Meaningful Use Diagnoses (Choose all that apply): None applicable 01/12/18 1149 <Electronically signed by Fiorella HAY> Date Fiorella HAY 01/12/18 1243<Electronically signed by Rivka Charles > Cosigner Signature (if applicable): Date Rivka Charles CC: SATNAM Gan; Rivka Charles; Ric Mccrary MD Signed DISCHARGE INSTRUCTION Observed: 01/12/2018 Status: F Source: [place] 11:30 AM [facility] [place] REPOSITORY [facility] Medical Records Department [address] [place] [address] Instructions for Home/Discharge Instructions 01/12/18 1125 MR#: [id number] Acct: [id number] Name: KOURTNEY REZA Rep #: [id number] : 1975 42 From: Rivka Charles PCP: Ric Mccrary MD Status: ADM AIDEN - Discharge Diagnoses Current Active Problems: Current Active and Chronic Problems (1) Intractable N/V/D, Possible Viral Gastroenteritis versus possible intolerance to Clindamycin (2) Recent Tooth Abscess (3) ESRD on HD (4) Chronic systolic CHF, CM, Diastolic DysFx, CAD (5) Diabetes mellitus type II w/ Neuropathy, Gastroparesis (6) Hypertension (7) Hyperlipidemia (8) Depression and Anxiety (9) Tobacco Abuse (10) Obesity (11) GERD (12) AOCD, Fe deficiency anemia You will use the following diet at home:: Calorie/Carbohydrate Controlled (specify 1200, 1400, etc) - 1800 ADA, Cardiac Your food should be the consistency of: Regular Your liquids should be the consistency of: Regular/Thin Discharge Activity: Return to Normal Activity May resume sexual activity in: 10-14 days Weight Bearing Status: Weight bearing as tolerated Call your doctor if you observe: Fever of 101 or Higher, Inability to urinate, Inability to have a bowel movement, Shortness of breath, Dizziness, Fainting spells, Chest pain, Uncontrolled pain, - - Recurrent intractable nausea, emesis or change in ostomy output. Instructions: ED Nausea Vomiting, Dental Abscess Allergies/Adverse Reactions: Allergies latex Allergy (Verified 01/11/18 08:30) Rash levofloxacin [From Levaquin] Adverse Reaction (Verified 01/11/18 08:30) PT CAN'T REMEMBER PT CAN'T REMEMBER metoclopramide HCl [From Reglan] Adverse Reaction (Verified 01/11/18 08:30) Nausea NSAIDS (Non-Steroidal Anti-Inflamma Adverse Reaction (Verified 01/11/18 08:30) kidney function oxycodone HCl [From Percocet] Adverse Reaction (Verified 01/11/18 08:30) HALLUCINATIONS Medications to take at Discharge Diltiazem HCl [Tiazac] 240 mg PO DAILY 07/10/15 Aspirin [Aspirin, Baby] 81 mg PO DAILY@0800 01/26/16 Calcium Acetate [Phoslo Gel Cap] 667 mg PO TIDCM 01/26/16 Ergocalciferol [Vitamin D] 50,000 unit PO FR 01/26/16 Insulin Aspart [Novolog Flexpen] 8 units SC TIDCM 01/26/16 Insulin Glargine,Hum.rec.anlog [Lantus] 5 unit SQ QHS 01/09/17 proMETHazine tablet [Phenergan tablet] 25 mg PO Q6H PRN PRN #10 tablet 03/06/17 Lisinopril 20 mg PO DAILY 03/29/17 Sodium Bicarbonate 650 mg PO TUTHSA 03/29/17 Carvedilol [Coreg (Beta Lewis)] 25 mg PO BID 06/17/17 Fluoxetine HCl 40 mg PO DAILY 09/02/17 hydrALAZINE [Apresoline] 25 mg PO TID 11/05/17 Atorvastatin Calcium 10 mg PO QHS #30 tab 11/16/17 Isosorbide DN [Isordil] 20 mg PO TID #90 tab 11/16/17 ALPRAZolam [Xanax] 0.5 mg PO DAILY 11/21/17 Famotidine [Pepcid] 20 mg PO DAILY 11/21/17 Amoxicillin/Potassium Clav [Augmentin 500-125 Tablet] 1 ea PO UD 10 Days tab 01/12/18 The following prescriptions were given: Amoxicillin/Potassium Clav [Augmentin 500-125 Tablet] 1 ea PO UD 10 Days tab Primary Care Physician: Ric Mccrary MD [Primary Care Provider] - Please follow up with your Primary Care Physician in: Follow- up within 3-5 days to review admission. Please Follow Up With: Dentist,Your When: Please contact your dentist to notify them of antibiotic change. Please Follow Up With: Petty Zhang MD When: Please contact his office to re-schedule your appt. Proposed Discharge Date: 01/12/18 01/12/18 1130 <Electronically signed by Rivka Charles > Date Rivka Charles CC: Ivania Martinez M.D.; Ric Mccrary MD BEDSIDE GLUCOSE Collected: 01/12/2018 Status: F Source: [place] 11:12 AM [facility] REPOSITORY TYPE CODE TESTS RESULT OUT OF REFERENCE UNITS RANGE LAB L501.080 70-110 mg/dL High BEDSIDE GLU 183 Result Comment: MANAGEMENT OF PATIENT CARE PER NURSING PROTOCOL Performed By: #### L501.080 #### [facility] Point of Care [address] [place] [address] CBC W/DIFF, AUTOMATED Collected: 01/12/2018 Status: F Source: [place] 7:19 AM [facility] REPOSITORY TYPE CODE TESTS RESULT OUT OF RANGE REFERENCE UNITS LAB L100.1000 4.4-11.0 K/mm3 Normal WBC 6.5 LAB L100.1200 4.2-5.4 M/mm3 Low RBC 2.87 LAB L100.1300 12.0-15.0 g/dl Low HGB 9.4 LAB L100.1400 37-47 % Low HCT 29.6 LAB L100.1500 81-99 fL High MCV 103.1 LAB L100.1600 27.0-32.0 pg High MCH 32.8 LAB L100.1700 32-36 g/gl Low MCHC 31.8 LAB L100.1810 11.6-14.6 % High RDW CV 14.9 LAB L100.1820 35.1-43.9 fl High RDW SD 54.5 LAB L100.1900 150-450 K/mm3 Normal PLT 193 LAB L100.2000 6.2-12.0 fl Normal MPV 8.5 LAB L100.2100 47-70 % High NEUT% 78.7 LAB L100.2200 19-41 % Low LY% 13.5 LAB L100.2300 0-10 % Normal MONO% 3.5 LAB L100.2400 0-5 % Normal EO% 3.7 LAB L100.2500 0-1 % Normal BASO% 0.3 LAB L100.2550 0.0-0.9 % Normal IM GRAN % 0.300 Result Comment: IG% - Immature Granulocytes (promyelocytes, myelocytes and metamyelocytes) > 1% indicates that a LEFT SHIFT is Present. LAB L100.2620 2.0-7.7 X10 3/uL Normal Absolute Neut 5.2 LAB L100.2720 0.83-4.51 X10 3/ul Normal Absolute Lymph 0.88 Performed By: #### L100.0100 #### [facility] [address] [place], [address] BASIC METABOLIC Collected: 01/12/2018 Status: F Source: [facility] PROFILE ([facility]) 7:19 AM [facility] REPOSITORY TYPE CODE TESTS RESULT OUT OF RANGE REFERENCE UNITS LAB L501.0100 74-106 mg/dL High GLU 236 Result Comment: Glucose result greater than or equal to 200 mg/dL suggests DIABETES MELLITUS per A.D.A. criteria. Please note revised GLUCOSE reference range effective 2017. LAB L501.1000 7-18 mg/dL High BUN 26 LAB L501.1100 0.55-1.02 mg/dL High CREAT,SERUM 4.62 Result Comment: The validity of the calculated GFR AND GFRAA in patients over 70 years has not been determined. Clinical correlation is essential. LAB L501.1110 >60 mL/min Low EST GFR 11 Result Comment: Non- GFR Calc LAB L501.1115 >60 mL/min Low EST GFR - AA 13 Result Comment: GFR Calc LAB L501.1255 ml/min Normal Estimated CRCL 14.55 LAB L501.1300 10-20 RATIO Low BUN/CRE 5.6 LAB L501.2200 8.5-10 mg/dL Low .1 CA 8.2 LAB L501.5300 136-14 mmol/L Low 5 NA 135 LAB L501.5600 3.5-5. mmol/L Normal 1 K 3.8 LAB L501.5900 98-107 mmol/L Low CL 97 LAB L501.6100 21.0-3 mmol/L High 2.0 CO2 33.0 LAB L501.6200 5-15 Normal GAP 5 Performed By: #### L500.2500 #### [facility] [address] [place], [address] BEDSIDE GLUCOSE Collected: 01/12/2018 Status: F Source: [place] 5:39 AM [facility] REPOSITORY TYPE CODE TESTS RESULT OUT OF REFERENCE UNITS RANGE LAB L501.080 70-110 mg/dL High BEDSIDE GLU 284 Result Comment: MANAGEMENT OF PATIENT CARE PER NURSING PROTOCOL Performed By: #### L501.080 #### [facility] Point of Care [address] [place] [address] BEDSIDE GLUCOSE Collected: 01/11/2018 Status: F Source: [place] 11:32 PM [facility] REPOSITORY TYPE CODE TESTS RESULT OUT OF RANGE REFERENCE UNITS LAB L501.080 70-110 mg/dL Normal BEDSIDE GLU 94 Result Comment: MANAGEMENT OF PATIENT CARE PER NURSING PROTOCOL Performed By: #### L501.080 #### [facility] Point of Care [address] [place] [address] STOOL Observed: 01/11/2018 Status: F Source: [place] LACTOFERRIN/WBC 8:04 PM [facility] REPOSITORY Stool Lacto/WBC Normal Reference Range = Negative Fecal WBC Lactoferrin Negative: No Fecal WBC Lactoferrin present Performed By: #### M100.0605 #### [facility] [address] [place] [address]. [place], [address] Observed: 01/11/2018 Status: F Source: [place] CDIFF (MOLECULAR) 8:04 PM [facility] REPOSITORY Is the patient receiving laxatives? N New/unexplained onset of 3 or more stools in past 24 hrs? Y Comments: Collect from colostomy. Cdiff-Molecular Normal Reference Range = Negative C. Diff DNA Negative- No toxigenic C. Diff DNA Detected NAAT METHOD Testing was performed using nucleic acid amplification Performed By: #### M100.6796 #### [facility] [place], [address] Observed: 01/11/2018 Status: F Source: [place] ENTERIC PATHOGEN 8:04 PM [facility] PANEL STOOL REPOSITORY EP PANEL STOOL Not detected for Campylobacter group, Salmonella species, Shigella species, Vibrio Group, Yersinia enterocolitica, EHEC (Shiga Toxin 1, Shiga Toxin 2), Norovirus Gl/Gll, and Rotavirus A. Other common stool pathogens are not detected on this panel include: Aeromonas/Plesiomonas or parasites. Order testing for these organisms separately if suspected. This is an amplified DNA test which makes it both specific and sensitive. Normal Reference Range = Not Detected CAMPYLOBACTER Not Detected Salmonella Not Detected Shigella sp. Not Detected Shiga Toxin Not Detected Yersinia Not Detected VIBRIO Not Detected Norovirus Not Detected Rotavirus Not Detected Performed By: #### M100.637 #### [facility] [address] [place], [address] BEDSIDE GLUCOSE Collected: 01/11/2018 Status: F Source: [place] 5:23 PM [facility] REPOSITORY TYPE CODE TESTS RESULT OUT OF RANGE REFERENCE UNITS LAB L501.080 70-110 mg/dL Normal BEDSIDE GLU 88 Result Comment: MANAGEMENT OF PATIENT CARE PER NURSING PROTOCOL Performed By: #### L501.080 #### [facility] Point of Care [address] [place] [address] CONSULTATION Observed: 01/11/2018 Status: F Source: [place] 5:03 PM [facility] REPOSITORY [facility] Medical Records Department [address] [place] [address] Consultation 01/11/18 1656 MR#: [id number] Acct: [id number] Name: KOURTNEY REZA Rep #: [id number] : 1975 42 From: Chey Martinez MD PCP: Ric Mccrary MD Status: ADM AIDEN Y Location: [place] [address] Problem List (1) ESRD (end stage renal disease) on dialysis Status: Chronic Consultation - Renal 01/11/18 PCP/ Referring MD: Requesting physician: [] Primary care physician: Ric Mccrary Reason for Consultation:: ESRD - History of Present Illness History of Present Illness: The patient is a 42 year old F well known to us. ESRD on HD TTS schedule. access is left arm AVF Has known history of Perianal abscess s/p extensive surgery. was supposed to get colostomy reversal this week recently had tooth infection, was given clindamycin. developed nausea, vomitings and abdominal pain - Allergies Allergies: Allergies latex Allergy (Verified 01/11/18 08:30) Rash levofloxacin [From Levaquin] Adverse Reaction (Verified 01/11/18 08:30) PT CAN'T REMEMBER PT CAN'T REMEMBER metoclopramide HCl [From Reglan] Adverse Reaction (Verified 01/11/18 08:30) Nausea NSAIDS (Non-Steroidal Anti-Inflamma Adverse Reaction (Verified 01/11/18 08:30) kidney function oxycodone HCl [From Percocet] Adverse Reaction (Verified 01/11/18 08:30) HALLUCINATIONS - Current Medications Current Medications: Current Medications Alprazolam (Xanax) 0.5 mg PO DAILY [facility] Aspirin (Aspirin, Baby) 81 mg PO DAILY@0800 [facility] Atorvastatin Calcium (Lipitor) 10 mg PO QHS [facility] Calcium Acetate (Phoslo Gel Cap) 667 mg PO TIDCM [facility] Carvedilol (Coreg) 25 mg PO BID [facility] Diltiazem HCl (Cardizem Cd) 240 mg PO DAILY [facility] Last Admin: 01/11/18 16:07 Dose: Not Given Fluoxetine HCl (Prozac) 40 mg PO DAILY [facility] Heparin Sodium (Porcine) (Heparin Na) 5,000 unit SC Q8 [facility] Last Admin: 01/11/18 15:45 Dose: Not Given Hydralazine HCl (Apresoline Iv) 10 mg IV Q4H PRN PRN PRN Reason: SBP > 160 Hydralazine HCl (Apresoline) 25 mg PO TID [facility] Hydromorphone HCl (Dilaudid Inj) 0.5 - 1 mg IV Q3H PRN PRN PRN Reason: SEVERE PAIN (6-10/10) Ampicillin Sodium/Sulbactam (Sodium 3 gm/ Sodium Chloride) 112 mls @ 150 mls/hr IV Q24 [facility] Last Admin: 01/11/18 14:18 Dose: 150 mls/hr Pantoprazole Sodium 40 mg/ (Sodium Chloride) 110 mls @ 330 mls/hr IV Q12 [facility] Insulin Glargine (Lantus (Bkc)) 5 units SC QHS [facility] Insulin Human Lispro (Humalog Kwikpen (Bk)) 0 unit SC Q6 [facility] PRN Reason: Protocol Isosorbide Dinitrate (Isordil) 20 mg PO TID [facility] Lisinopril (Zestril) 20 mg PO DAILY [facility] Last Admin: 01/11/18 16:07 Dose: Not Given Magnesium Hydroxide (Milk Of Magnesia) 30 ml PO DAILY PRN PRN PRN Reason: Constipation Ondansetron HCl (Zofran) 4 mg IV Q6H PRN PRN PRN Reason: NAUSEA Oxycodone HCl (Oxyir) 5 - 10 mg PO Q4H PRN PRN PRN Reason: SEVERE PAIN (6-10/10) Last Admin: 01/11/18 16:17 Dose: 10 mg Promethazine HCl (Phenergan) 12.5 mg IV Q6H PRN PRN PRN Reason: NAUSEA/VOMITING Last Admin: 01/11/18 14:18 Dose: 12.5 mg Sodium Bicarbonate (Sodium Bicarbonate) 650 mg PO TUTHSA [facility] Sodium Chloride () 5 - 30 ml IV UD PRN PRN Reason: SALINE FLUSH Last Admin: 01/11/18 14:22 Dose: 10 ml - Past Medical History Past Medical History (Chronic Problems): Chronic Problems ESRD (end stage renal disease) on dialysis (Chronic) Decubitus ulcer, stage III (Chronic) CAD (coronary artery disease) (Chronic) Anemia, chronic disease (Chronic) Pilonidal cyst with abscess (Chronic) GABRIEL (obstructive sleep apnea) (Chronic) ESRD on dialysis (Chronic) Depression (Chronic) Anxiety (Chronic) HTN (hypertension) (Chronic) Nonischemic cardiomyopathy (Chronic) With ejection fraction 45 - 50%; with angiographically normal coronary arteries 05/2013; follows up with Dr. Underwood S/P repair of PDA (patent ductus arteriosus) (Chronic) At young age Diabetes mellitus type 1 (Chronic) Hyperlipidemia (Chronic) Obesity (BMI 30.0-34.9) (Chronic) Gastroparesis (Chronic) - Past Surgical History Surgical History: appendectomy, hysterectomy - and BSO, - - c-sections, L breast I+D for abscess, fistula placement LUE, L ankle surgery, appendectomy, PDA repair. Excision pilonidal cyst ulcer about 4 years ago. - Social History Smoking Status: Current every day smoker Alcohol: None Drugs: None - Family History Maternal History Items: Cancer, COPD, Diabetes, Hypertension, Renal Disease, Stroke Paternal History Items: Diabetes Sibling History Items: Cancer, Diabetes Review of Systems Constitutional: Denies: Chills, Fever, Weight Change HEENT: Denies: Head Aches, Sinus Congestion, Sinus Drainage Cardiovascular: Denies: Chest Pain, Palpitations Respiratory: Denies: Cough, Shortness of breath at rest, Sputum production Gastrointestinal: Denies: Abdominal Pain, Nausea, Vomiting Genitourinary: Denies: Dysuria Musculoskeletal: Denies: Joint Pain, Joint Tenderness Skin: Denies: Rash, Wounds Neurological: Denies: Numbness, Tingling, Focal weakness Psychiatric: Denies: Anxiety, Depression, Homicidal Ideations, Suicidal Ideations Hematologic/ Lymphatic: Denies: Easy Bruising, Easy Bleeding Patient Problems: Active and Suspected Problems Tooth abscess (Acute) Intractable nausea and vomiting (Acute) - Physical Exam General: Alert, Oriented x3, Cooperative HEENT: Atraumatic, PERRLA, EOMI, Normocephalic Neck: Supple, No JVD, Negative Carotid Bruits Lungs: Clear to auscultation, Normal air movement Cardiovascular: Regular rate, No murmurs Abdomen: Bowel Sounds Present, Soft, Non Tender Extremities: No edema, Capillary Refill Less than 3 Seconds Skin: No rashes, No breakdown Musculoskeletal: No Tenderness to Palpation of Joints or Extremities Neurological: Cranial nerves II-XII grossly intact Psych/Mental Status: Normal Affect, Appropriate Vital Signs Temp Pulse Resp BP Pulse Ox 98.0 F 95 18 155/76 H 96 01/11/18 12:42 01/11/18 15:13 01/11/18 12:49 01/11/18 12:42 01/11/18 15:20 Oxygen Flow Rate (L/min) 2 Oxygen Delivery Method Nasal Cannula Weight: 90.7 kg Body Mass Index (BMI) 32.3 Assessment/Plan All Active Problems Tooth abscess (Acute) Intractable nausea and vomiting (Acute) Pneumonia (Resolved) Pulmonary edema (Acute) Hyperkalemia (Acute) Atypical chest pain (Acute) Acute hypoxic respiratory failure (Acute) Pulmonary edema (Acute) Clostridium difficile enterocolitis (Resolved) Necrotizing myositis (Resolved) Dysmenorrhea (Resolved) Hx of necrotizing fascIItis (Resolved) Iron deficiency anemia due to chronic blood loss (Resolved) Systolic congestive heart failure (Resolved) ESRD. HD today. See orders/ flowsheets Diarrhea. ? related to clindamycin. 01/11/18 1703 <Electronically signed by Chey Martinez MD> Date Chey Martinez MD Cosigner Signature (if applicable): Date CC: Ivania Martinez M.D.; Ric Mccrary MD Signed HISTORY AND PHYSICAL Observed: 01/11/2018 Status: F Source: [place] EXAM 3:50 PM [facility] REPOSITORY [facility] Medical Records Department [address] [place] [id number] History and Physical 01/11/18 1142 MR#: [id number] Acct: [id number] Name: KOURTNEY REZA Rep #: [id number] : 1975 42 From: Rivka Charles PCP: Ric Mccrary MD Status: ADM AIDEN Y Location: [place] [address] Problem List (1) Intractable nausea and vomiting Status: Acute Qualifiers: Vomiting type: unspecified Qualified Code(s): R11.2 - Nausea with vomiting, unspecified (2) Tooth abscess Status: Acute (3) Hyperkalemia Status: Acute (4) ESRD (end stage renal disease) on dialysis Status: Chronic (5) Clostridium difficile enterocolitis Status: Resolved (6) CAD (coronary artery disease) Status: Chronic Qualifiers: Coronary Disease-Associated Artery/Lesion type: unspecified vessel or lesion type Koi vs. transplanted heart: unspecified whether ute or transplanted heart Associated angina: angina presence unspecified Qualified Code(s): I25.10 - Atherosclerotic heart disease of ute coronary artery without angina pectoris (7) Anemia, chronic disease Status: Chronic (8) GABRIEL (obstructive sleep apnea) Status: Chronic (9) Depression Status: Chronic Qualifiers: Depression Type: unspecified (10) Anxiety Status: Chronic (11) HTN (hypertension) Status: Chronic Qualifiers: Hypertension type: essential hypertension (12) Nonischemic cardiomyopathy Status: Chronic Comment: With ejection fraction 45 - 50%; with angiographically normal coronary arteries 05/2013; follows up with Dr. Underwood (13) S/P repair of PDA (patent ductus arteriosus) Status: Chronic Comment: At young age (12) Diabetes mellitus type 1 Status: Chronic Qualifiers: Diabetes mellitus complication status: with unspecified complications Qualified Code(s): E10.8 - Type 1 diabetes mellitus with unspecified complications (15) Hyperlipidemia Status: Chronic Qualifiers: Hyperlipidemia type: unspecified (16) Obesity (BMI 30.0-34.9) Status: Chronic (17) Gastroparesis Status: Chronic History of Present Illness Date of Admission: 01/11/18 Chief Complaint: Abdominal pain, nausea, emesis, loose stools in colostomy. The patient is a 42 y/o F w/ PMHx: ESRD on HD T//Mon missing 01/11/18 HD secondary to acute illness, Diabetes mellitus type II w/ Neuropathy and Gastroparesis, HTN, HLD, Tobacco use, Obesity, LV Diastolic Dysfx, Systolic CHF, CAD s/p 2013 catheterization w/ mild LAD disease w/ medical therapy only, Anxiety and Depression, AOCD/Fe deficiency anemia who presents to the [facility] ED on 01/11/18 with history of ongoing, unrelenting nausea, emesis, increased stool output, more liquid than normal from ostomy and concurrent cramping and intermittently sharp abdominal pain x 5 days, seen 2 days prior in the ED and at that time administered phenergan with improvement. Patient does report recent tooth abscess and was placed on clindamycin which she has not been able to take secondary to her intractable nausea and emesis. in the ED upon current presentation in OSH ED, administered phenergan without improvement. In the ED work-up included T 98, heart rate 99, BP 164/84 did increase to 210/94 secondary to inability to take her oral hypertensive regimen this morning-->improved to 155/76, respiratory rate 18, 95% on 2 L nasal cannula, CBC with WBC 7.4, hemoglobin 9.2, platelet 147 with mild left shift, CMP with potassium 5.2, carbon dioxide 20, BUN/creatinine 56/6.85, glucose 169, lipase 283, UA not market appearing and specific gravity moderate, CT A/P with small bilateral pleural effusions with progressive increased interstitial markings in both lower lobes, stable appearance of the abdomen. In the emergency room patient gently hydrated and was medicated with IV hydralazine in addition to Phenergan and morphine. Past Medical History Past Medical History (Chronic Problems): Chronic Problems ESRD (end stage renal disease) on dialysis (Chronic) Decubitus ulcer, stage III (Chronic) CAD (coronary artery disease) (Chronic) Anemia, chronic disease (Chronic) Pilonidal cyst with abscess (Chronic) GABRIEL (obstructive sleep apnea) (Chronic) ESRD on dialysis (Chronic) Depression (Chronic) Anxiety (Chronic) HTN (hypertension) (Chronic) Nonischemic cardiomyopathy (Chronic) With ejection fraction 45 - 50%; with angiographically normal coronary arteries 05/2013; follows up with Dr. Underwood S/P repair of PDA (patent ductus arteriosus) (Chronic) At young age Diabetes mellitus type 1 (Chronic) Hyperlipidemia (Chronic) Obesity (BMI 30.0-34.9) (Chronic) Gastroparesis (Chronic) Allergies latex Allergy (Verified 01/11/18 08:30) Rash levofloxacin [From Levaquin] Adverse Reaction (Verified 01/11/18 08:30) PT CAN'T REMEMBER PT CAN'T REMEMBER metoclopramide HCl [From Reglan] Adverse Reaction (Verified 01/11/18 08:30) Nausea NSAIDS (Non-Steroidal Anti-Inflamma Adverse Reaction (Verified 01/11/18 08:30) kidney function oxycodone HCl [From Percocet] Adverse Reaction (Verified 01/11/18 08:30) HALLUCINATIONS Home Medications: Ambulatory Orders Medication Instructions Recorded Diltiazem HCl [Tiazac] 240 mg PO DAILY 07/10/15 Aspirin [Aspirin, Baby] 81 mg PO DAILY@0800 01/26/16 Calcium Acetate [Phoslo Gel Cap] 667 mg PO TIDCM 01/26/16 Surgical History: appendectomy, hysterectomy - and BSO, - - c-sections, L breast I+D for abscess, fistula placement LUE, L ankle surgery, appendectomy, PDA repair. Excision pilonidal cyst ulcer about 4 years ago. Psychiatric History: Anxiety, Depression [employer] History: No pertinent [employer] history Lives: Alone Smoking Status: Current every day smoker Tobacco Use: Cigarettes Alcohol: None Drugs: None - *Family History Maternal History Items: Cancer, COPD, Diabetes, Hypertension, Renal Disease, Stroke Paternal History Items: Diabetes Sibling History Items: Cancer, Diabetes Review of Systems Constitutional: Reports: Anorexia, Malaise, Weakness, Fatigue. Denies: Chills, Fever, Weight Change HEENT: Denies: Head Aches, Sinus Congestion, Sinus Drainage Cardiovascular: Denies: Chest Pain, Chest Pressure, Chest Tightness, Palpitations Respiratory: Denies: Cough, Shortness of breath at rest, Sputum production Gastrointestinal: Reports: Abdominal Pain, Nausea, Vomiting, - - More loose, liquid stools in colostomy. Genitourinary: Denies: Dysuria, Retention Musculoskeletal: Reports: Back Pain. Denies: Joint Pain, Joint Tenderness Skin: Denies: Rash, Wounds Neurological: Denies: Confusion, Focal weakness, Numbness, Tingling Psychiatric: Reports: Anxiety, Depression. Denies: Homicidal Ideations, Suicidal Ideations Hematologic/ Lymphatic: Reports: Anemia. Denies: Easy Bruising, Easy Bleeding VTE Information - Inpt Only VTE Present on Admission: No VTE Mechan Device Prophylaxis: SCD's VTE Pharm Prophylaxis ordered?: Yes Patient Problems: Active and Suspected Problems Tooth abscess (Acute) Intractable nausea and vomiting (Acute) Subjective: Seated upright in the bed, fatigued appearance, recent sedated regimen administrated, notes improvement of nausea and emesis. Objective: Physical Examination: General: awakens to stimuli, fatigued, intermittently alert, oriented x 3 and cooperative, lying in bed, improved appearance, notes improved nausea and emesis. Skin: normal color, turgor, no icterus, cyanosis. HEENT: AT/NC, EOMI, PERRLA, mildly dry MM, no carotid bruits or JVD noted. Lungs: Diminished BS BL, > bases, moderate effort, no rales, ronchi or wheezing. Heart: Regular rate and rhythm; no gallop, rub audible. Abdomen: soft, obese, unable to elicit any pain, ND, mildly hyperactive BS, no HSM. Extremities: no cyanosis, clubbing, mild ankle edema, LUE AVF. Neurological: awakens to stimuli, fatigued, intermittently alert, oriented x 3 and cooperative, lying in bed, improved appearance, notes improved nausea and emesis; cognitive function mildly decreased, likely secondary to sedative regimen, otherwise intact; pupils equally reactive to light and accomodation; cranial nerves II-XII grossly normal, moving all 4 extremities, no focal deficits, strength moderately to severely globally decreased. Psychiatric: affect appears fatigued, mildly flat, no acute evidence of depressive or anxiety feelings. - Physical Exam Vital Signs Temp Pulse Resp BP Pulse Ox 98.0 F 97 30 H 188/95 H 94 01/11/18 08:31 01/11/18 11:04 01/11/18 11:04 01/11/18 11:04 01/11/18 11:04 Oxygen Flow Rate (L/min) 2 Oxygen Delivery Method Nasal Cannula Weight: 201 lb 3.2 oz Body Mass Index (BMI) 32.4 Finger Stick Blood Glucose 118 Laboratory Tests Past 24 Hrs WBC 7.4 Assessment/Plan All Active Problems Tooth abscess (Acute) Intractable nausea and vomiting (Acute) Pneumonia (Resolved) Pulmonary edema (Acute) Hyperkalemia (Acute) Atypical chest pain (Acute) Acute hypoxic respiratory failure (Acute) Pulmonary edema (Acute) Clostridium difficile enterocolitis (Resolved) Necrotizing myositis (Resolved) Dysmenorrhea (Resolved) Hx of necrotizing fascIItis (Resolved) Iron deficiency anemia due to chronic blood loss (Resolved) Systolic congestive heart failure (Resolved) The patient is a 42 y/o F w/ PMHx: ESRD on HD T//Sat missing 01/11/18 HD secondary to acute illness, Diabetes mellitus type II w/ Neuropathy and Gastroparesis, HTN, HLD, Tobacco use, Obesity, LV Diastolic Dysfx, Systolic CHF, CAD s/p 2013 catheterization w/ mild LAD disease w/ medical therapy only, Anxiety and Depression, AOCD/Fe deficiency anemia who presents to the [facility] ED on 01/11/18 with history of ongoing, unrelenting nausea, emesis, increased stool output, more liquid than normal from ostomy and concurrent cramping and intermittently sharp abdominal pain x 5 days. (1) N/V/D, ? Viral Gastroenteritis: Given elevated BP will admit to PCU, gently hydrate given missed HD and underlying CHF history awaiting HD this evening, will obtain c diff, stool cx, on unasyn for tooth abscess given inability to tolerate oral regimen (clindamycin outpatient, not best option given c-diff history), Anti-emetics, pain regimen PRN. Once improved, allow clear liquids and ADAT. (2) Recent Tooth Abscess: Placed on clindamycin outpatient, unable to tolerate regimen, transition to Unasyn given oral intolerance, once able transition to oral regimen, place additionally once able on lactobacillus. Clindamycin more high risk medication for her given notable c-diff history. (3) ESRD on HD: Consulted Nephrology, continue with routine HD regimen, pending HD this evening per discussion with staff. (4) Chronic systolic CHF, CM, Diastolic DysFx, CAD: EF 45- 50% w/ 05/2013 normal cardiac catheterization per Dr. Underwood, continue asa, BB, ACEI, statin. Pending HD as noted mild congestion on CT A/P, gently hydrated in the ED. (5) Diabetes mellitus type II w/ Neuropathy, Gastroparesis: Hold short acting insulin given n.p.o. status, continue long-acting with potentially one half dose if blood sugar low, once tolerating clears and able to advance transition to ADA diet, accu checks w/ ISS. (6) Hypertension: Elevated in the ED secondary to missed regimen this AM with emesis, improved with IV PRN regimen, improving nausea and emesis thus will restart home coreg, lisinopril, Cardizem, Isordil, PRN hydralazine. (7) Hyperlipidemia: Continue home statin regimen. (8) Depression and Anxiety: Continue home Prozac, Xanax regimen once able to tolerate oral regimen. (9) Tobacco Abuse: Encouraged cessation, inpatient consultation per RT, NR if desired. (10) Obesity: Weight loss and lifestyle changes encouraged. (11) GERD: IV PPI until improving then transition back to oral regimen. (12) AOCD, Fe deficiency anemia: Admission Hgb 9.2, trend. (13) DVT Prophylaxis: SCDs, heparin. Code Visit OBSV E AND M: [id number] Initial observation care L3 01/11/18 1550 <Electronically signed by Rivka Charles > Date Rivka Charles Cosigner Signature: Date (if applicable) CC: Rivka Charles; Ric Mccrary MD Signed EMERGENCY DEPARTMENT Observed: 01/11/2018 Status: F Source: [place] SUMMARY 11:28 AM [facility] REPOSITORY [facility] Medical Records Department [address] [place] [address] Emergency Department Summary 01/11/18 1124 MR#: [id number] Acct: [id number] Name: KOURTNEY REZA Rep #: [id number] : 1975 42 From: Estrella Solano DO PCP: Ric Mccrary MD Status: REG ER - ER Visit Summary Date of Service: 01/11/18 Chief Complaint: [Vomiting, diarrhea, abdominal pain] History of Present Illness: The patient is a 42 F [presents the emergency department with symptoms for the last 5 days. Patient was seen at [place] emergency department 2 days ago for the same complaint and was given Phenergan suppositories to put in her colostomy however she states that she continues to vomit every time she tries to eat or drink anything. Patient states that she has been vomiting up her medications. Patient is a dialysis patient and was not able to go today because she was not feeling well. Patient denies any fever. Patient is currently on clindamycin for an abscessed tooth. Patient's had some chills. Patient states that her parents recently both had stomach flulike symptoms. Past medical history also significant for coronary artery disease, hypertension, high cholesterol, history of C. difficile, depression, anxiety, obesity, gastroparesis. Her surgical history includes appendectomy, hysterectomy, , colostomy, PDA repair.] Physical Examination: [HEENT-PERRLA, EOMI. Cranial nerves II through XII grossly intact. TMs clear. Mucous membranes moist. No adenopathy. Cardiovascular-regular rate and rhythm without murmur or ectopy Lungs-clear to auscultation, chest wall stable without crepitus or subcu emphysema Abdomen-normoactive bowel sounds, soft. Patient has diffuse tenderness on palpation with out rebound, rigidity, or peritoneal signs. Patient's colostomy appears intact and she has some formed stool however only small amount within the colostomy bag. Extremities-intact 4, normal range of motion, normal pulses, atraumatic] Test Results: [CBC with differential obtained showed a white blood cell count 7.4, hemoglobin 9.2, hematocrit 28, platelets 147. Chemistries unremarkable other than a potassium of 5.2. Her BUN was 56 and creatinine was 6.85. LFTs were normal. Lipase was normal. Urinalysis was normal. CT scan of the flank obtained showed small bilateral pleural effusions and some component of CHF. Nothing acute in the abdomen otherwise.] Emergency Department Course and Treatment: [His blood pressure did elevate over 200 systolic and patient states that she vomited up her blood pressure medicine this morning therefore she did receive hydralazine 5 mg IV. Patient was medicated with Phenergan and morphine 2. Patient continues to not feel well and continues to complain of abdominal pain and nausea.] Treatment Plan: [Admit for gentle hydration and symptom management. Patient also will require dialysis.] Disposition: [Admit Impression: [Gastroenteritis Intractable nausea vomiting Hyperkalemia Chronic renal failure This note was generated with [employer] dictation software. It may contain incorrect words, spelling, and punctuation that were not noted in review of the chart prior to signing ED Disposition - Plan for ED Patient: Chief Complaint: Nausea/Vomiting/Diarrhea Referrals: Ric Mccrary MD [Primary Care Provider] - What to do if you have Problems For any increased pain, shortness of breath, bleeding, nausea or vomiting, chest pain, or any unexpected problems, contact your Primary Care Provider. Call [facility] ([phone]) or report to the closest Emergency Room. Call 911 if necessary. 01/11/18 1128 <Electronically signed by Estrella Solano DO> Date Estrella Solano DO Cosigner Signature (If Indicated): Date CC: Ric Mccrary MD URINALYSIS, COMPLETE Collected: 01/11/2018 Status: F Source: [place] 9:40 AM [facility] REPOSITORY Order Comment: Order Date: 01/11/18 How was Urine Obtained? FURNITURE FINISHER TO SPECIFY TYPE CODE TESTS RESULT OUT OF RANGE REFERENCE UNITS LAB L400.3000 Yellow COLOR Normal Yellow LAB L400.3050 Clear Normal CLARITY Sl. Cloudy LAB L400.3200 Normal mg/dl High GLUCOSE, UR 250 LAB L400.3300 Negative mg/dL Normal BILIRUBIN URINE Negative LAB L400.3400 Negative mg/dl Normal KETONE UR Negative LAB L400.3465 1.002-1.030 Normal SP.GR. DIPSTX 1.010 LAB L400.3550 5.0 - 8.0 pH UR Normal 7.0 LAB L400.3600 Negative mg/dl High PROT DIPSTX 100 LAB L400.3700 Normal mg/dl Normal UROBILI Normal LAB L400.3750 Negative Normal NITRITE UR Negative LAB L400.3780 Negative /ul High 25 OCCULT BLOOD-UR LAB L400.3800 Negative /ul LEUK Normal ESTERASE Negative LAB L400.4050 0-5 /hpf WBC 0 Normal SEEN LAB L400.4100 0-5 /hpf Normal RBC-UA 0-5 SEEN LAB L400.4150 5-10 /hpf SQUAM Normal EPI 0-5 SEEN LAB L400.4300 None Seen /hpf Normal BACTERIA RARE LAB L400.4350 <or=2+ /hpf 0 Normal MUCUS, URINE SEEN Performed By: #### L400.0001 #### [facility] [address] [place], [address] ABDOMEN/PELVIS WITHOUT Observed: 01/11/2018 Status: F Source: CIARAN CONT 9:21 AM [facility] REPOSITORY [facility] Imaging Services [address] [place] [address] Abdomen/Pelvis without Cont MR#: [id number] Acct: [id number] Name: KOURTNEY REZA Van Rep #: [id number] : 1975 F 42 From: Josh Hill MD PCP: Ric Mccrary MD Status: REG ER Study: Abdomen/Pelvis without Cont Date of Exam: 01/11/18 Exam# [id number] Ordering Dr: Estrella Solano DO STUDY: CT ABDOMEN AND PELVIS WITHOUT CONTRAST REASON FOR EXAM: Female, 42 years old. 5 day history of nausea and vomiting and abdominal pain. History of colostomy. RADIATION DOSAGE (If Supplied By Facility): CTDIvol = ( 21.77 ) mGy, DLP = ( 1066.10 ) mGycm TECHNIQUE: Transaxial images were obtained from the dome of the diaphragm to the symphysis pubis without oral contrast, and without intravenous contrast. Sagittal and coronal images were reconstructed. Individualized dose optimization techniques were used for this CT. COMPARISON: Comparison is made with prior study dated December 24, 2017. FINDINGS: Since prior study, there has been a progression of the interstitial thickening in both lower lobes. There are areas of coalescence. Small bilateral pleural effusions. Coronary artery calcification. Normal liver. Kevin's lobe of the liver. This is a normal variant. Normal gallbladder and extrahepatic biliary system. Normal spleen. Normal pancreas. There is a small, circumscribed, smooth, low attenuation left adrenal mass, consistent with an adrenal adenoma. This measures 2.2 cm. Normal right adrenal gland. Normal right kidney. Normal left kidney. Stable mild bilateral perinephric stranding. Normal visualized stomach. Normal small intestine. Normal colon. An ostomy is seen in the anterior mid abdomen. There is a parastomal ventral hernia at the colostomy site. There is also evidence of a right lateral anterior abdominal wall hernia containing fat. The hernia neck is 3.2 cm cyst. There is diffuse atherosclerotic calcification of the abdominal aorta, without a demonstrated aneurysm. Extensive calcification of the visceral branches of the aorta including the mesenteric and celiac arteries and the renal arteries and their branches. Normal inferior vena cava. Normal retroperitoneum. Normal urinary bladder. There is absence of the uterus consistent with a prior hysterectomy. There are diffuse degenerative changes of the visualized lumbar spine. Straightening of the normal lumbar lordosis. CT/Abdomen/Pelvis without Cont IMPRESSION: Small bilateral pleural effusions with progressive increased interstitial markings in both lower lobes. An element of CHF should be ruled out. Stable appearance of the abdomen. Electronically Signed: Josh Hill MD at 10:33 EDT Tel [phone], Service support , CC: Estrella Solano DO; Ric Mccrary MD Tester Operator Helper: Signed CBC W/DIFF, AUTOMATED Collected: 01/11/2018 Status: F Source: [place] 8:56 AM [facility] REPOSITORY TYPE CODE TESTS RESULT OUT OF RANGE REFERENCE UNITS LAB L100.1000 4.4-11.0 K/mm3 Normal WBC 7.4 LAB L100.1200 4.2-5.4 M/mm3 Low RBC 2.84 LAB L100.1300 12.0-15.0 g/dl Low HGB 9.2 LAB L100.1400 37-47 % Low HCT 28.3 LAB L100.1500 81-99 fL High MCV 99.6 LAB L100.1600 27.0-32.0 pg High MCH 32.4 LAB L100.1700 32-36 g/gl Normal MCHC 32.5 LAB L100.1810 11.6-14.6 % High RDW CV 15.4 LAB L100.1820 35.1-43.9 fl High RDW SD 55.5 LAB L100.1900 150-450 K/mm3 Low PLT 147 LAB L100.2000 6.2-12.0 fl Normal MPV 9.4 LAB L100.2100 47-70 % High NEUT% 83.1 LAB L100.2200 19-41 % Low LY% 10.8 LAB L100.2300 0-10 % Normal MONO% 2.7 LAB L100.2400 0-5 % Normal EO% 3.0 LAB L100.2500 0-1 % Normal BASO% 0.3 LAB L100.2550 0.0-0.9 % Normal IM GRAN % 0.100 Result Comment: IG% - Immature Granulocytes (promyelocytes, myelocytes and metamyelocytes) > 1% indicates that a LEFT SHIFT is Present. LAB L100.2620 2.0-7.7 X10 3/uL Normal Absolute Neut 6.2 LAB L100.2720 0.83-4.51 X10 3/ul Low Absolute Lymph 0.80 Performed By: #### L100.0100 #### [facility] [address] [place], [address] COMPREHENSIVE METABOLIC Collected: 01/11/2018 Status: F Source: [place]AN DARBY 8:56 AM [facility] REPOSITORY TYPE CODE TESTS RESULT OUT OF RANGE REFERENCE UNITS LAB L501.0100 74-106 mg/dL High GLU 169 Result Comment: Fasting Glucose result greater than or equal to 126 mg/dL suggests DIABETES MELLITUS per A.D.A. criteria. Please note revised GLUCOSE reference range effective 2017. LAB L501.1000 7-18 mg/dL High BUN 56 LAB L501.1100 0.55-1.02 mg/dL High CREAT,SERUM 6.85 Result Comment: The validity of the calculated GFR AND GFRAA in patients over 70 years has not been determined. Clinical correlation is essential. LAB L501.1110 >60 mL/min Low EST GFR 7 Result Comment: Non- GFR Calc LAB L501.1115 >60 mL/min Low EST GFR - AA 8 Result Comment: GFR Calc LAB L501.1255 ml/min Normal Estimated CRCL 9.81 LAB L501.1300 10-20 RATIO Low BUN/CRE 8.2 LAB L501.1500 6.4-8.2 g/dL Normal T PROT 8.0 LAB L501.1800 3.2-5.0 g/dL Low ALB 2.9 LAB L501.1950 2.2-4.2 g/dL High GLOB 5.1 LAB L501.2000 0.9-2.4 RATIO Low A/G 0.6 LAB L501.2200 8.5-10. mg/dL Low 1 CA 8.4 LAB L501.4100 15-37 U/L Normal AST 25 Result Comment: Slight Hemolysis, Result may be falsely increased. LAB L501.4305 45-117 U/L Normal ALK P 96 LAB L501.4405 13-56 U/L Normal ALT 32 LAB L501.4600 0.20-1.00 mg/dL Normal T BILI 0.40 LAB L501.5300 136-145 mmol/L Normal NA 138 LAB L501.5600 3.5-5.1 mmol/L High K 5.2 Result Comment: Slight Hemolysis, Result may be falsely increased. LAB L501.5900 98-107 mmol/L Normal CL 107 LAB L501.6100 21.0-32.0 mmol/L Low CO2 20.0 LAB L501.6200 5-15 Normal GAP 11 Performed By: #### L500.4050, L501.2450 #### [facility] [address] [place], [address] LIPASE Collected: 01/11/2018 Status: F Source: [place] 8:56 AM [facility] REPOSITORY TYPE CODE TESTS RESULT OUT OF RANGE REFERENCE UNITS LAB L501.2450 73-393 U/L Normal LIPASE 283 Performed By: #### L500.4050, L501.2450 #### [facility] [address] [place], [address] MAGNESIUM Collected: 01/11/2018 Status: F Source: [place] 8:56 AM [facility] REPOSITORY TYPE CODE TESTS RESULT OUT OF RANGE REFERENCE UNITS LAB L501.5200 1.6-2.6 mg/dL Normal MG 2.1 Result Comment: Slight Hemolysis, Result may be falsely increased. Performed By: #### L501.5200 #### [facility] [address] [place], [address] DOWNTIME REPORT Observed: 01/10/2018 Status: F Source: [place] 1:56 PM [facility] Medical Records Department [address] [place] [address] Downtime Report MR#: [id number] Acct: [id number] Name: KOURTNEY REZA Rep #: [id number] : 1975 42 From: Diego Solitario MD PCP: Ric Mccrary MD Status: DEP ER This patient was seen during an EMR downtime December 25, 2017 - January 01, 2018. This patient may have a combination of paper and electronic documentation or all paper documentation. All documentation is viewable within the e-chart portion of [employer] for each patient visit. .GFR Collected: 01/08/2018 Status: F Source: [facility] [employer] 5:45 PM [facility] REPOSITORY TYPE CODE TESTS RESULT OUT OF REFERENCE UNITS RANGE LAB GFRAA(LOINC ml/min/1.73 ) sqm GFR 8 Lao Result Comment: GFR Population mean for , Non- Americans Ages 20-29 = 116 mL/min/1.73 sq.m. Ages 30-39 = 107 mL/min/1.73 sq.m. Ages 40-49 = 99 mL/min/1.73 sq.m. Ages 50-59 = 93 mL/min/1.73 sq.m. Ages 60-69 = 85 mL/min/1.73 sq.m. Ages 70+ = 75 mL/min/1.73 sq.m. Chronic Kidney Disease: Less than 60 mL/min/1.73 square meters End Stage Renal Disease: Less than 15 mL/min/1.73 square meters LAB GFRNO(LOINC) ml/min/1.73sqm GFR Non- 7 Result Comment: GFR Population mean for , Non- Americans Ages 20-29 = 116 mL/min/1.73 sq.m. Ages 30-39 = 107 mL/min/1.73 sq.m. Ages 40-49 = 99 mL/min/1.73 sq.m. Ages 50-59 = 93 mL/min/1.73 sq.m. Ages 60-69 = 85 mL/min/1.73 sq.m. Ages 70+ = 75 mL/min/1.73 sq.m. Chronic Kidney Disease: Less than 60 mL/min/1.73 square meters End Stage Renal Disease: Less than 15 mL/min/1.73 square meters Performed By: #### CBC, ADIFF, ANEU, GFR, BMP #### [address] [address] BMP Collected: 01/08/2018 Status: F Source: [employer] 5:45 PM [facility] REPOSITORY Order Comment: Hemolyzed Collection entered by [employer] printer having issues - draw verified TYPE CODE TESTS RESULT OUT OF REFERENCE UNITS RANGE LAB GLU(LOINC) 70-105 mg/dL High Glucose Level 240 LAB NA(LOINC) 136-146 mEq/L Sodium Level 136 LAB K(LOINC) 3.5-5.1 mEq/L High Potassium Level 5.7 Result Comment: Specimen is still hemolyzed on second specimen. Result is affected. LAB CL(LOINC) 98-107 mEq/L Chloride 104 LAB CO2(LOINC) 22-29 mEq/L CO2 Low 20 LAB EBAL(LOINC) mEq/L Electrolyte Balance 12.0 LAB BUN(LOINC) 7.0-18.0 mg/dL BUN High 72.4 LAB CRE(LOINC) 0.6-1.2 mg/dL Creatinine High Lvl (s) 6.9 LAB BC(LOINC) 7-27 ratio BUN/Creatinine Ratio 10 LAB CA(LOINC) 8.4-10.2 mg/dL Calcium Lvl 8.6 Performed By: #### CBC, ADIFF, ANEU, GFR, BMP #### [address] [place], [place] [address] CBC Collected: 01/08/2018 Status: F Source: [facility] 5:15 PM [facility] REPOSITORY TYPE CODE TESTS RESULT OUT OF REFERENCE UNITS RANGE LAB WBC(LOINC) 4.60-10.80 10 3/mcL WBC 6.90 LAB RBCCT(LOINC 4.20-5.40 10 6/mcL ) Low RBC 2.99 LAB HGB(LOINC) 12.0-16.0 G/dL Low Hgb 10.0 LAB HCT(LOINC) 37.0-47.0 % Low Hct 29.7 LAB MCV(LOINC) 80.0-94.0 fL High MCV 99.4 LAB MCH(LOINC) 27.0-31.2 pg High MCH 33.6 LAB MCHC(LOINC) 33.0-37.0 G/dL MCHC 33.8 LAB RDW(LOINC) 11.5-14.5 % High RDW 15.8 LAB PLT(LOINC) 130-400 10 3/mcL Platelet 159 LAB MPV(LOINC) 7.4-10.4 fL Low MPV 7.1 Performed By: #### CBC, ADIFF, ANEU, GFR, BMP #### [address] [place], [place] [address] .AUTO DIFF Collected: 01/08/2018 Status: F Source: [facility] 5:15 PM [facility] REPOSITORY TYPE CODE TESTS RESULT OUT OF REFERENCE UNITS RANGE LAB GALINA(LOINC) 37.0-80.0 % Neutrophil % 76.2 LAB LYM(LOINC) 10.0-50.0 % Lymphocyte % 15.3 LAB MON(LOINC) 1.7-13.0 % Monocyte % 3.4 LAB EO(LOINC) 0.0-7.0 % Eosinophil % 4.3 LAB BAS(LOINC) 0.0-2.5 % Basophil % 0.8 LAB ABLYM(LOIN 0.77-3.85 10 3/mcL C) Lymphocyte, 1.10 Absolute LAB WILLIAM(LOINC 0.15-1.00 10 3/mcL ) Monocyte, 0.20 Absolute LAB AEOS(LOINC 0.00-0.40 10 3/mcL ) Eosinophil, 0.30 Absolute LAB ABAS(LOINC 0.00-0.19 10 3/mcL ) Basophil, 0.10 Absolute Performed By: #### CBC, ADIFF, ANEU, GFR, BMP #### [address] [place], [place] [address] .NEUABS Collected: 01/08/2018 Status: F Source: [facility] 5:15 PM [facility] REPOSITORY TYPE CODE TESTS RESULT OUT OF REFERENCE UNITS RANGE LAB ANEU(LOINC) 2.85-6.16 10 3/mcL Neutrophil, 5.20 Absolute Performed By: #### CBC, ADIFF, ANEU, GFR, BMP #### [address] [place], [place] [address] 12 LEAD ELECTROCARDIOGRAM Observed: 01/08/2018 Status: F Source: [place] 8:43 AM [facility] REPOSITORY [facility] Cardiovascular Services [address] [place] [address] 12 Lead EKG 12/28/17 1317 MR#: [id number] Acct: [id number] Name: KOURTNEY REZA Rep #: [id number] : 1975 42 From: Robert Tompkins MD Attending Dr: Status: DEP ER Ordering Dr: Gurinder Gonzales MD Date: 12/28/17 Location: ED Sex: F C Admitted: Test Reason : CP Blood Pressure : / mmHG Vent. Rate : 087 BPM Atrial Rate : 087 BPM P-R Int : 132 ms QRS Dur : 090 ms QT Int : 414 ms P-R-T Axes : 055 062 214 degrees QTc Int : 498 ms Normal sinus rhythm T wave abnormality, consider inferior ischemia Abnormal ECG Confirmed by ROBERT TOMPKINS MD ([id number]), web editor SHANIA SOLITARIO ([id number]) on 01/03/2018 5:29:32 PM Referred By: Chuyita Gonzales Confirmed By:ROBERT TOMPKINS MD 01/03/18 1729 Date Robert Tompkins MD CC: MD Chuyita Gonzales; Ric Mccrary MD Signed PROGRESS Observed: 01/05/2018 Status: COMPLETED Source: [place] 5:08 PM [facility] REPOSITORY HNO ID: [id number] Author: Chip (Cayden) Sherrill Service: (none) Author Type: Registered Nurse Type: Progress Notes Filed: 01/12/2018 2:15 PM Note Text: TRANSITION CARE MANAGEMENT (TCM) FOLLOW-UP NOTE Provider Action/FYI No response from patient Patient identified by name and date of : YES Summary: TC to patient, left message asking for pt to please call back over weekend and leave BS readings on PCC voicemail. Chip Tolliver RN January 05, 2018 5:08 PM Environmental Issues Instructor plan for next outreach: Will follow up next week Signature Chip Tolliver RN January 05, 2018 CNPTOUTREACH Observed: 01/05/2018 Status: COMPLETED Source: [place] 12:00 AM [facility] REPOSITORY Patient Outreach (FAMPWS) KOURTNEY REZA ([id number]) 1975 F TRN Date Time Provider Department 01/05/18 CHIP TOLLIVERRN) MELISSA During your visit today, we recorded the following information about you: Chip Tolliver RN 01/12/2018 2:15 PM Signed TRANSITION CARE MANAGEMENT (TCM) FOLLOW-UP NOTE Provider Action/FYI No response from patient Patient identified by name and date of : YES Summary: TC to patient, left message asking for pt to please call back over weekend and leave BS readings on PCC voicemail. Chip Tolliver RN January 05, 2018 5:08 PM Environmental Issues Instructor plan for next outreach: Will follow up next week Signature Chip Tolliver RN January 05, 2018 Allergies As of Date: 01/05/2018 Noted Allergy Reaction LATEX 01/20/2006 2 - Rash NSAIDS (NON-STEROIDAL ANTI-INFLAM*05/12/2017 15 - Contraindication- [facility] [place]* PERCOCET (OXYCODONE-ACETAMINOPHEN)10/28/2013 1 - Mental Status Change REGLAN (METOCLOPRAMIDE) 07/03/2013 11 - Vomiting Date Reviewed: 11/02/2017 Reviewed by: Trinidad Linton LPN - Fully Assessed Reason for Visit: [facility] Follow Up [1627] Prescriptions as of 01/05/2018 Sig: CARVEDILOL 25 MG TABLET TAKE 1 TABLET BY MOUTH TWICE * FLUOXETINE 40 MG CAPSULE Take 1 capsule by mouth once * PROMETHAZINE 25 MG TABLET TAKE 1 TABLET BY MOUTH EVERY * OSTOMY SUPPLIES 4 X 4 WAFER Holister wafer Reorder #[id number] OSTOMY SUPPLIES Ostomy bag Holister brand #18* INSULIN ASPART U-100 100 UNI* 8 units three times a day wit* INSULIN GLARGINE (U-100) 100 * Inject 5 Units subcutaneously* ATORVASTATIN 10 MG TABLET Take 1 tablet by mouth once d* ISOSORBIDE DINITRATE 20 MG TA* Take 1 tablet by mouth three * VANCOMYCIN 125 MG CAPSULE Take 1 capsule by mouth every* ALPRAZOLAM 0.5 MG TABLET Take 1 tablet by mouth as nee* COMPOUNDED PRESCRIPTION Miralax 238 gm bottle, (2) 32* LISINOPRIL 20 MG TABLET Take 20 mg by mouth once naman* BUDESONIDE DR - ER 3 MG CAPSU* Take 2 capsules by mouth once* ASPIRIN 81 MG TABLET,DELAYED * Take 1 tablet by mouth once d* NYSTATIN 100,000 UNIT/GRAM TO* Apply 1 application to affect* ATORVASTATIN 20 MG TABLET Take 1 tablet by mouth daily * ERGOCALCIFEROL (VITAMIN D2) 5* Take 1 capsule by mouth once * IRON, CARBONYL 45 MG TABLET Take 1 tablet by mouth three * AMLODIPINE 10 MG TABLET Take 1 tablet by mouth once d* DILTIAZEM CR 240 MG CAP Take 1 capsule by mouth once * PEN NEEDLE, DIABETIC 31 GAUGE* Use one needle per dose. 4 x * LANCETS Test blood sugar(s) 4- 6 times* BLOOD SUGAR DIAGNOSTIC STRIPS Test blood sugar(s) 4- 6 times* PEN NEEDLE, DIABETIC 29 GAUGE* 1 Each once daily. BLOOD SUGAR DIAGNOSTIC STRIPS Test blood sugar(s) 4 times d* ALBUTEROL (BULK) [facility] BLOOD-GLUCOSE METER KIT Freestyle LITE Meter Kit - Problem List As Of Date 01/05/2018 Noted Resolved VULVAL ABSCESS [N76.4] INVALID FOR*10/28/2013 Retinopathy due to secondary diabetes mellitus * Proteinuria [R80.9] Renal insufficiency [N28.9] 03/06/2017 Neuropathy [G62.9] INVALID FOR* HTN (hypertension) [I10] INVALID FOR* Anxiety [F41.9] INVALID FOR* More... Diabetes mellitus [E11.9] INVALID FOR* Cardiomyopathy, nonischemic [I42.8] INVALID FOR* Iron deficiency [E61.1] INVALID FOR* Anemia [D64.9] INVALID FOR* Scar condition and fibrosis of skin: Atrophic D*INVALID FOR* Rosacea [L71.9] INVALID FOR* Other acne [L70.8] INVALID FOR* Telangiectasia [I78.1] INVALID FOR* Irritant dermatitis [L24.9] INVALID FOR* Nodulocystic acne [L70.0] INVALID FOR* Dysfunctional uterine bleeding [N93.8] INVALID FOR* Vitamin D deficiency [E55.9] INVALID FOR* Asthma [J45.909] INVALID FOR* Obesity [E66.9] INVALID FOR* CHF (congestive heart failure) (HCC) [I50.9] INVALID FOR* Chronic renal failure, stage 5 (HCC) [N18.5] INVALID FOR* More... Complication of dialysis access insertion (HCC)*INVALID FOR* GABRIEL (obstructive sleep apnea) [G47.33] INVALID FOR* More... Diarrhea, functional [K59.1] INVALID FOR* More... Bloody stools [K92.1] INVALID FOR* More... C. difficile diarrhea [A04.72] INVALID FOR* More... Adenoma of left adrenal gland [D35.02] INVALID FOR* More... Encounter Status:Closed by CHIP TOLLIVER on 6/22/18 CT ABDOMEN/PELVIS W/ORAL Observed: 12/31/2017 Status: F Source: [place] CONTRAST ONLY 1:55 AM [facility] REPOSITORY ORIGINAL CT ABDOMEN/PELVIS W/ORAL CONTRAST ONLY, 12/31/2017 1:58 AM INDICATION: abdominal pain COMPARISON: March 2015 Technique: CT of the abdomen and pelvis following uncomplicated administration of intravenous and oral contrast, with sagittal and coronal reconstructions. This exam was performed according to our departmental dose optimization program, and includes the following measures where applicable: automated exposure control, adjustment of the mAs and/or kVp accord ing to patient size and/or exam, and an iterative reconstruction algorithm. FINDINGS: There is a 17 mm LEFT adrenal nodule with benign characteristics. There is mild fatty infiltration of the liver. The remaining abdominal organs are unremarkable in appearance. There are promin ent vascular calcifications. Bowel is normal in caliber. There is a LEFT para median ostomy. There is no obstruction. There is a RIGHT ventral hernia containing only fat. There is no pelvic or inguinal lymphadenopathy. There is no free fluid. IMPRESSION: 1. Interval colostomy. 2. RIGHT ventral hernia containing only fat is also new since the comparison. 3. No acute findings. Interpreted By: Kayode Lehman MD Preliminary Report By: Kayode Lehman MD Electronically Signed By: Kayode Lehman MD Dictated Date: 12/31/2017 2:00:33 AM Prelim Date: 12/31/2017 2:00:33 AM Sign Date: 12/31/2017 2:03:59 AM .GFR Collected: 12/31/2017 Status: F Source: [place] [employer] 12:06 AM [facility] REPOSITORY TYPE CODE TESTS RESULT OUT OF REFERENCE UNITS RANGE LAB GFRAA(LOINC ml/min/1.73 ) sqm GFR 16 Lao Result Comment: GFR Population mean for , Non- Americans Ages 20-29 = 116 mL/min/1.73 sq.m. Ages 30-39 = 107 mL/min/1.73 sq.m. Ages 40-49 = 99 mL/min/1.73 sq.m. Ages 50-59 = 93 mL/min/1.73 sq.m. Ages 60-69 = 85 mL/min/1.73 sq.m. Ages 70+ = 75 mL/min/1.73 sq.m. Chronic Kidney Disease: Less than 60 mL/min/1.73 square meters End Stage Renal Disease: Less than 15 mL/min/1.73 square meters LAB GFRNO(LOINC) ml/min/1.73sqm GFR Non- 13 Result Comment: GFR Population mean for , Non- Americans Ages 20-29 = 116 mL/min/1.73 sq.m. Ages 30-39 = 107 mL/min/1.73 sq.m. Ages 40-49 = 99 mL/min/1.73 sq.m. Ages 50-59 = 93 mL/min/1.73 sq.m. Ages 60-69 = 85 mL/min/1.73 sq.m. Ages 70+ = 75 mL/min/1.73 sq.m. Chronic Kidney Disease: Less than 60 mL/min/1.73 square meters End Stage Renal Disease: Less than 15 mL/min/1.73 square meters Performed By: #### GFR, CMP, LIP, CBC, ADIFF, ANEU #### [address] [address] CMP Collected: 12/31/2017 Status: F Source: [facility] 12:06 AM [facility] REPOSITORY TYPE CODE TESTS RESULT OUT OF REFERENCE UNITS RANGE LAB GLU(LOINC) 70-105 mg/dL Glucose High Level 275 LAB NA(LOINC) 136-146 mEq/L Low Sodium Level 134 LAB K(LOINC) 3.5-5.1 mEq/L Potassium Level 4.1 LAB CL(LOINC) 98-107 mEq/L Low Chloride 96 LAB CO2(LOINC) 22-29 mEq/L CO2 High 33 LAB EBAL(LOINC mEq/L ) Electrolyte Balance 5.0 LAB BUN(LOINC) 7.0-18.0 mg/dL BUN High 18.1 LAB CRE(LOINC) 0.6-1.2 mg/dL Creatinine High Lvl (s) 3.7 LAB BC(LOINC) 7-27 ratio Low BUN/Creatinine 5 Ratio LAB CA(LOINC) 8.4-10.2 mg/dL Low Calcium Lvl 8.1 LAB PROT(LOINC 6.0-8.3 G/dL ) Total Protein 7.5 LAB ALB(LOINC) 3.5-5.0 G/dL Albumin Level 3.6 LAB GLB(LOINC) G/dL Globulin 3.9 LAB AG(LOINC) 1.1-2.5 ratio Low A/G Ratio 0.9 LAB BILT(LOINC 0.2-1.0 mg/dL ) Bili Total 0.2 LAB AP(LOINC) 40-135 IU/L Alk Phos 116 LAB AST(LOINC) 10-40 IU/L AST/SGOT 26 LAB ALT(LOINC) 10-35 IU/L ALT/SGPT 29 Performed By: #### GFR, CMP, LIP, CBC, ADIFF, ANEU #### [place] [address] [address] LIP Collected: 12/31/2017 Status: F Source: [facility] 12:06 AM [facility] REPOSITORY TYPE CODE TESTS RESULT OUT OF REFERENCE UNITS RANGE LAB LIP(LOINC) 8-78 IU/L High Lipase Level 80 Performed By: #### GFR, CMP, LIP, CBC, ADIFF, ANEU #### [address] [address] CBC Collected: 12/31/2017 Status: F Source: [facility] 12:06 AM [facility] REPOSITORY TYPE CODE TESTS RESULT OUT OF REFERENCE UNITS RANGE LAB WBC(LOINC) 4.60-10.80 10 3/mcL WBC 8.20 LAB RBCCT(LOINC 4.20-5.40 10 6/mcL ) Low RBC 3.08 LAB HGB(LOINC) 12.0-16.0 G/dL Low Hgb 10.8 LAB HCT(LOINC) 37.0-47.0 % Low Hct 30.6 LAB MCV(LOINC) 80.0-94.0 fL High MCV 99.4 LAB MCH(LOINC) 27.0-31.2 pg High MCH 35.1 LAB MCHC(LOINC) 33.0-37.0 G/dL MCHC 35.3 LAB RDW(LOINC) 11.5-14.5 % High RDW 15.5 LAB PLT(LOINC) 130-400 10 3/mcL Platelet 241 LAB MPV(LOINC) 7.4-10.4 fL Low MPV 6.9 Performed By: #### GFR, CMP, LIP, CBC, ADIFF, ANEU #### [address] [address] .AUTO DIFF Collected: 12/31/2017 Status: F Source: [facility] 12:06 AM [facility] REPOSITORY TYPE CODE TESTS RESULT OUT OF REFERENCE UNITS RANGE LAB GALINA(LOINC) 37.0-80.0 % Neutrophil % 73.9 LAB LYM(LOINC) 10.0-50.0 % Lymphocyte % 18.7 LAB MON(LOINC) 1.7-13.0 % Monocyte % 3.6 LAB EO(LOINC) 0.0-7.0 % Eosinophil % 3.3 LAB BAS(LOINC) 0.0-2.5 % Basophil % 0.5 LAB ABLYM(LOIN 0.77-3.85 10 3/mcL C) Lymphocyte, 1.50 Absolute LAB WILLIAM(LOINC 0.15-1.00 10 3/mcL ) Monocyte, 0.30 Absolute LAB AEOS(LOINC 0.00-0.40 10 3/mcL ) Eosinophil, 0.30 Absolute LAB ABAS(LOINC 0.00-0.19 10 3/mcL ) Basophil, 0.00 Absolute Performed By: #### GFR, CMP, LIP, CBC, ADIFF, ANEU #### [address] [address] .NEUABS Collected: 12/31/2017 Status: F Source: [facility] 12:06 AM [facility] REPOSITORY TYPE CODE TESTS RESULT OUT OF REFERENCE UNITS RANGE LAB ANEU(LOINC) 2.85-6.16 10 3/mcL Neutrophil, 6.00 Absolute Performed By: #### GFR, CMP, LIP, CBC, ADIFF, ANEU #### [address] [address] CHEST PA AND LATERAL Observed: 12/29/2017 Status: F Source: [place] 1:08 PM [facility] REPOSITORY [facility] Imaging Services [address] [place] [address] Chest PA and Lateral MR#: [id number] Acct: [id number] Name: KOURTNEY REZA Rep #: [id number] : 1975 F 42 From: Dylan Lee MD PCP: Ric Mccrary MD Status: REG ER Study: Chest PA and Lateral Date of Exam: 12/28/17 Exam# [id number] Ordering Dr: Roberto Mills DO STUDY: X-RAY CHEST REASON FOR EXAM: Female, 42 years old. Chest pain. TECHNIQUE: PA and lateral views of the chest. COMPARISON: Portable AP upright chest x-ray November 14, 2017. FINDINGS: The lungs are clear and expanded. There is no demonstrated pleural abnormality. Normal size heart. Normal mediastinum and latrell. Normal visualized pulmonary arteries. Normal visualized aortic arch and descending thoracic aorta. There are degenerative changes of the lowermost thoracic spine and a thoracolumbar levoscoliosis. There are chronic deformities of the posterolateral left 3-6 ribs, consistent with old healed fractures. Normal visualized right ribs, clavicles, and shoulders. There is no demonstrated abnormality of the visualized soft tissue structures of the upper abdomen. RAD/Chest PA and Lateral IMPRESSION: No acute cardiopulmonary disease. Electronically Signed: Stan Lee MD at 12:18 EDT , Service support , CC: Roberto Mills DO; Ric Mccrary MD Tester Operator Helper: Signed PROGRESS Observed: 12/29/2017 Status: COMPLETED Source: [place] 12:12 PM [facility] REPOSITORY HNO ID: [id number] Author: Chip (Cayden) Sherrill Service: (none) Author Type: Registered Nurse Type: Progress Notes Filed: 12/29/2017 12:15 PM Note Text: PRIMARY CARE COORDINATION FOLLOW-UP NOTE Provider Action/FYI Still having problems with colostomy-will see Dr. Zhang for appt States no BS has been even close to 210-will call BS log Patient identified by name and date of . YES Spoke to patient Summary: Pt states she is still having problems with her colostomy and will be scheduling an appt with Dr. Zhang. She isn't at home with her meter but states she has had no BS even close to 210. Asked pt to please call back with list of BS dates and results, verbalized agreement. Environmental Issues Instructor plan for next outreach: Will follow up 3 weeks Signature Chip Tolliver RN December 29, 2017 CNPTOUTREACH Observed: 12/29/2017 Status: COMPLETED Source: [place] 12:00 AM [facility] REPOSITORY Patient Outreach (FAMPWS) KOURTNEY REZA ([id number]) 1975 F TRN Date Time Provider Department 12/29/17 CHIP TOLLIVER (RN) MELISSA During your visit today, we recorded the following information about you: Chip Tolliver RN 12/29/2017 12:15 PM Signed PRIMARY CARE COORDINATION FOLLOW-UP NOTE Provider Action/FYI Still having problems with colostomy-will see Dr. Zhang for appt States no BS has been even close to 210-will call BS log Patient identified by name and date of . YES Spoke to patient Summary: Pt states she is still having problems with her colostomy and will be scheduling an appt with Dr. Zhang. She isn't at home with her meter but states she has had no BS even close to 210. Asked pt to please call back with list of BS dates and results, verbalized agreement. 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 [9832] Prescriptions as of 12/29/2017 Sig: CARVEDILOL 25 MG TABLET TAKE 1 TABLET BY MOUTH TWICE * FLUOXETINE 40 MG CAPSULE Take 1 capsule by mouth once * PROMETHAZINE 25 MG TABLET TAKE 1 TABLET BY MOUTH EVERY * HYDROCODONE 5 MG-ACETAMINOPHE* Take 1 tablet by mouth every * OSTOMY SUPPLIES 4 X 4 WAFER Holister wafer Reorder #[id number] OSTOMY SUPPLIES Ostomy bag Holister brand #18* INSULIN ASPART U-100 100 UNI* 8 units three times a day wit* INSULIN GLARGINE (U-100) 100 * Inject 5 Units subcutaneously* ATORVASTATIN 10 MG TABLET Take 1 tablet by mouth once d* ISOSORBIDE DINITRATE 20 MG TA* Take 1 tablet by mouth three * VANCOMYCIN 125 MG CAPSULE Take 1 capsule by mouth every* ALPRAZOLAM 0.5 MG TABLET Take 1 tablet by mouth as nee* COMPOUNDED PRESCRIPTION Miralax 238 gm bottle, (2) 32* LISINOPRIL 20 MG TABLET Take 20 mg by mouth once naman* BUDESONIDE DR - ER 3 MG CAPSU* Take 2 capsules by mouth once* ASPIRIN 81 MG TABLET,DELAYED * Take 1 tablet by mouth once d* NYSTATIN 100,000 UNIT/GRAM TO* Apply 1 application to affect* ATORVASTATIN 20 MG TABLET Take 1 tablet by mouth daily * ERGOCALCIFEROL (VITAMIN D2) 5* Take 1 capsule by mouth once * IRON, CARBONYL 45 MG TABLET Take 1 tablet by mouth three * AMLODIPINE 10 MG TABLET Take 1 tablet by mouth once d* DILTIAZEM CR 240 MG CAP Take 1 capsule by mouth once * PEN NEEDLE, DIABETIC 31 GAUGE* Use one needle per dose. 4 x * LANCETS Test blood sugar(s) 4- 6 times* BLOOD SUGAR DIAGNOSTIC STRIPS Test blood sugar(s) 4- 6 times* PEN NEEDLE, DIABETIC 29 GAUGE* 1 Each once daily. BLOOD SUGAR DIAGNOSTIC STRIPS Test blood sugar(s) 4 times d* ALBUTEROL (BULK) [facility] BLOOD-GLUCOSE METER KIT Freestyle LITE Meter Kit - Problem List As Of Date 12/29/2017 Noted Resolved VULVAL ABSCESS [N76.4] INVALID FOR*10/28/2013 Retinopathy due to secondary diabetes mellitus * Proteinuria [R80.9] Renal insufficiency [N28.9] 03/06/2017 Neuropathy [G62.9] INVALID FOR* HTN (hypertension) [I10] INVALID FOR* Anxiety [F41.9] INVALID FOR* More... Diabetes mellitus [E11.9] INVALID FOR* Cardiomyopathy, nonischemic [I42.8] INVALID FOR* Iron deficiency [E61.1] INVALID FOR* Anemia [D64.9] INVALID FOR* Scar condition and fibrosis of skin: Atrophic D*INVALID FOR* Rosacea [L71.9] INVALID FOR* Other acne [L70.8] INVALID FOR* Telangiectasia [I78.1] INVALID FOR* Irritant dermatitis [L24.9] INVALID FOR* Nodulocystic acne [L70.0] INVALID FOR* Dysfunctional uterine bleeding [N93.8] INVALID FOR* Vitamin D deficiency [E55.9] INVALID FOR* Asthma [J45.909] INVALID FOR* Obesity [E66.9] INVALID FOR* CHF (congestive heart failure) (HCC) [I50.9] INVALID FOR* Chronic renal failure, stage 5 (HCC) [N18.5] INVALID FOR* More... Complication of dialysis access insertion (HCC)*INVALID FOR* GABRIEL (obstructive sleep apnea) [G47.33] INVALID FOR* More... Diarrhea, functional [K59.1] INVALID FOR* More... Bloody stools [K92.1] INVALID FOR* More... C. difficile diarrhea [A04.72] INVALID FOR* More... Encounter Status:Closed by CHIP TOLLIVER on 12/29/17 BASIC METABOLIC Collected: 12/28/2017 Status: F Source: [place] PROFILE (BMP) 12:00 AM [facility] REPOSITORY Order Comment: RESULT(S) PREVIOUSLY REPORTED ON MANUAL REQUISITION DURING DOWNTIME. Comments: 1 'TROP' Serial specimen #1, #2, #3, or #4: 1 TYPE CODE TESTS RESULT OUT OF RANGE REFERENCE UNITS LAB L501.0100 74-106 mg/dL High GLU 319 Result Comment: Glucose result greater than or equal to 200 mg/dL suggests DIABETES MELLITUS per A.D.A. criteria. Please note revised GLUCOSE reference range effective 2017. LAB L501.1000 7-18 mg/dL High BUN 21 LAB L501.1100 0.55-1.02 mg/dL High CREAT,SERUM 3.35 Result Comment: The validity of the calculated GFR AND GFRAA in patients over 70 years has not been determined. Clinical correlation is essential. LAB L501.1110 >60 mL/min Low EST GFR 16 LAB L501.1115 >60 mL/min Low EST GFR - AA 19 LAB L501.1300 10-20 RATIO Low BUN/CRE 6.3 LAB L501.2200 8.5-10.1 mg/dL Low CA 7.8 LAB L501.5300 136-145 mmol/L Normal NA 140 LAB L501.5600 3.5-5.1 mmol/L Normal K 3.5 LAB L501.5900 98-107 mmol/L Normal CL 98 LAB L501.6100 21.0-32.0 mmol/L High CO2 34.0 LAB L501.6200 5-15 Normal GAP 8 Performed By: #### L500.2500, L501.4010 #### [facility] [address] [place], [place], [address] TROPONIN-I Collected: 12/28/2017 Status: F Source: [place] 12:00 AM [facility] REPOSITORY Order Comment: RESULT(S) PREVIOUSLY REPORTED ON MANUAL REQUISITION DURING DOWNTIME. Comments: 1 'TROP' Serial specimen #1, #2, #3, or #4: 1 TYPE CODE TESTS RESULT OUT OF RANGE REFERENCE UNITS LAB L501.4010 <0.045 ng/mL Normal < 0.015 TROPONIN-I Result Comment: TROPONIN-I EXPECTED VALUES <0.045 Negative 0.045 - 0.590 Consistent with Cardiac Damage > OR = 0.600 Critical Value Not every elevated troponin is indicative of NY. These values should be used with clinical judgement in examining the patient's clinical picture for diagnosis. To establish a diagnosis of NY versus myocardial injury, there must be a demonstrated rise and/or fall in the troponin values, in addition to ischemic symptoms, EKG changes, new regional wall motion abnormality, and/or angiographical evidence. PLEASE NOTE: REFERENCE RANGES EDITED 17 Performed By: #### L500.2500, L501.4010 #### [facility] [address] [place], [place], [address] PROGRESS Observed: 2017 Status: COMPLETED Source: [place] 1:38 PM [facility] REPOSITORY HNO ID: [id number] Author: Brandi López) CAYDEN Duenas Service: (none) Author Type: Registered Nurse Type: Progress Notes Filed: 2017 1:39 PM Note Text: Evaluation end latter sent EMERGENCY DEPARTMENT Observed: 12/24/2017 Status: F Source: [place] SUMMARY 5:43 AM [facility] REPOSITORY [facility] Medical Records Department [address] [place] [address] Emergency Department Summary 12/24/17 0410 MR#: [id number] Acct: [id number] Name: KOURTNEY REZA Rep #: [id number] : 1975 41 From: Jose Luis Payne DO PCP: Ric Mccrary MD Status: DEP ER - ER Visit Summary Date of Service: 12/24/17 Chief Complaint: [] Abdominal pain History of Present Illness: The patient is a 41 F [] complaining of abdominal pain and nausea. Denies vomiting. Denies fevers. Has a colostomy secondary to having a significant sacral wound surgically repaired which is currently healing. Patient reports increased yellow greenish fluid output from her colostomy as well as tenderness at the actual opening of the colostomy site. Physical Examination: [] Afebrile, vital signs stable. 41-year-old female no acute distress. Abdominal exam reveals mild tenderness around the colostomy site without guarding or rebound. There was no abdominal distention. Remainder of exam is unremarkable. Test Results: [] CBC, BMP, LFTs within normal limits with the exception of a creatinine of 6.67 which is consistent with the patient's baseline history of renal failure. Lactic acid 1.4. Lipase moderately elevated 508. CT of the abdomen and pelvis with p.o. contrast reveals no acute pathology. Emergency Department Course and Treatment: [] Patient given intravenous morphine 2, Phenergan, saline. On serial exam had improvement of symptoms. She was counseled regarding her diagnostic and laboratory findings and encouraged follow-up with her surgeon Dr. Zhang. Treatment Plan: [] Follow-up with PCP. Follow-up with surgeon. Disposition: [] Discharge, stable. Impression: [] Abdominal pain, unknown etiology This note was generated with [employer] dictation software. It may contain incorrect words, spelling, and punctuation that were not noted in review of the chart prior to signing ED Disposition - Plan for ED Patient: Chief Complaint: Abd Pain Referrals: Ric Mccrary MD [Primary Care Provider] - What to do if you have Problems For any increased pain, shortness of breath, bleeding, nausea or vomiting, chest pain, or any unexpected problems, contact your Primary Care Provider. Call [facility] ([phone]) or report to the closest Emergency Room. Call 911 if necessary. 12/24/1743 <Electronically signed by Jose Luis Payne DO> Date JoseL uis Payne DO Cosigner Signature (If Indicated): Date CC: Ric Mccrary MD DISCHARGE INSTRUCTION Observed: 12/24/2017 Status: F Source: [place] 4:14 AM [facility] REPOSITORY [facility] Medical Records Department [address] [place], [place] [address] [address] Discharge Instruction 12/24/17412 MR#: [id number] Acct: [id number] Name: KOURTNEY REZA Rep #: [id number] : 1975 41 From: Jose Luis Payne DO PCP: Ric Mccrary MD Status: REG ER ED Disposition - Plan for ED Patient: Disposition: Home or Assisted Living Chief Complaint: Abd Pain Instructions: ED Abdominal Pain Unkn Cause Referrals: Ric Mccrary MD [Primary Care Provider] - Petty Zhang MD [STAFF PHYSICIAN] - What to do if you have Problems For any increased pain, shortness of breath, bleeding, nausea or vomiting, chest pain, or any unexpected problems, contact your Primary Care Provider. Call [facility] ([phone]) or report to the closest Emergency Room. Call 911 if necessary. 12/24/17 0414 <Electronically signed by Jose Luis Payne DO> Date Jose Luis Payne DO Cosigner Signature (If Indicated): Date CC: Ric Mccrary MD CBC W/DIFF, AUTOMATED Collected: 12/24/2017 Status: F Source: [place] 1:07 AM [facility] REPOSITORY TYPE CODE TESTS RESULT OUT OF RANGE REFERENCE UNITS LAB L100.1000 4.4-11.0 K/mm3 Normal WBC 7.3 LAB L100.1200 4.2-5.4 M/mm3 Low RBC 2.87 LAB L100.1300 12.0-15.0 g/dl Low HGB 9.5 LAB L100.1400 37-47 % Low HCT 29.7 LAB L100.1500 81-99 fL High MCV 103.5 LAB L100.1600 27.0-32.0 pg High MCH 33.1 LAB L100.1700 32-36 g/gl Normal MCHC 32.0 LAB L100.1810 11.6-14.6 % High RDW CV 14.7 LAB L100.1820 35.1-43.9 fl High RDW SD 54.6 LAB L100.1900 150-450 K/mm3 Normal PLT 155 LAB L100.2000 6.2-12.0 fl Normal MPV 9.0 LAB L100.2100 47-70 % Normal NEUT% 67.2 LAB L100.2200 19-41 % Normal LY% 22.7 LAB L100.2300 0-10 % Normal MONO% 5.6 LAB L100.2400 0-5 % Normal EO% 4.1 LAB L100.2500 0-1 % Normal BASO% 0.3 LAB L100.2550 0.0-0.9 % Normal IM GRAN % 0.100 Result Comment: IG% - Immature Granulocytes (promyelocytes, myelocytes and metamyelocytes) > 1% indicates that a LEFT SHIFT is Present. LAB L100.2620 2.0-7.7 X10 3/uL Normal Absolute Neut 4.9 LAB L100.2720 0.83-4.51 X10 3/ul Normal Absolute Lymph 1.65 Performed By: #### L100.0100 #### [facility] [address] [place], [id number] COMPREHENSIVE METABOLIC Collected: 12/24/2017 Status: F Source: [place] 1:07 AM [facility] REPOSITORY TYPE CODE TESTS RESULT OUT OF RANGE REFERENCE UNITS LAB L501.0100 74-106 mg/dL High GLU 246 Result Comment: Glucose result greater than or equal to 200 mg/dL suggests DIABETES MELLITUS per A.D.A. criteria. Please note revised GLUCOSE reference range effective 2017. LAB L501.1000 7-18 mg/dL High BUN 51 LAB L501.1100 0.55-1.02 mg/dL High CREAT,SERUM 6.67 Result Comment: The validity of the calculated GFR AND GFRAA in patients over 70 years has not been determined. Clinical correlation is essential. LAB L501.1110 >60 mL/min Low EST GFR 7 Result Comment: Non- GFR Calc LAB L501.1115 >60 mL/min Low EST GFR - AA 9 Result Comment: GFR Calc LAB L501.1255 ml/min Normal Estimated CRCL 10.18 LAB L501.1300 10-20 RATIO Low BUN/CRE 7.6 LAB L501.1500 6.4-8. g/dL Normal 2 T PROT 7.9 LAB L501.1800 3.2-5. g/dL Low 0 ALB 3.1 LAB L501.1950 2.2-4. g/dL High 2 GLOB 4.8 LAB L501.2000 0.9-2. RATIO Low 4 A/G 0.6 LAB L501.2200 8.5-10 mg/dL Low .1 CA 8.3 LAB L501.4100 15-37 U/L Normal AST 16 LAB L501.4305 45-117 U/L Normal ALK P 98 LAB L501.4405 13-56 U/L Normal ALT 24 LAB L501.4600 0.20-1 mg/dL Normal .00 T BILI 0.30 LAB L501.5300 136-14 mmol/L Normal 5 NA 136 LAB L501.5600 3.5-5. mmol/L Normal 1 K 4.5 LAB L501.5900 98-107 mmol/L Normal CL 100 LAB L501.6100 21.0-3 mmol/L Normal 2.0 CO2 24.0 LAB L501.6200 5-15 Normal GAP 12 Performed By: #### L500.4050, L501.2450 #### [facility] [address] [place], [address] LIPASE Collected: 12/24/2017 Status: F Source: [place] 1:07 AM [facility] REPOSITORY TYPE CODE TESTS RESULT OUT OF REFERENCE UNITS RANGE LAB L501.2450 73-393 U/L High LIPASE 508 Performed By: #### L500.4050, L501.2450 #### [facility] [address] [place], [address] LACTIC ACID Collected: 12/24/2017 Status: F Source: [place] 1:07 AM [facility] REPOSITORY Order Comment: Yes/No query for Sepsis Lactate Rule Y TYPE CODE TESTS RESULT OUT OF RANGE REFERENCE UNITS LAB L503.6005 0.4-2.0 mmol/L Normal LACTIC ACID 1.4 Performed By: #### L503.6005 #### [facility] [address] [place], [address] ABDOMEN/PEL W ORAL CONT Observed: 12/24/2017 Status: F Source: [place] ONLY 12:55 AM [facility] REPOSITORY [facility] Imaging Services [address] [place] [address] Abdomen/Pel W ORAL Cont Only MR#: [id number] Acct: [id number] Name: KOURTNEY REZA Rep #: [id number] : 1975 F 41 From: Bernardo Preston MD PCP: Ric Mccrary MD Status: REG ER Study: Abdomen/Pel W ORAL Cont Only Date of Exam: 12/24/17 Exam# [id number] Ordering Dr: Jose Luis Payne DO STUDY: CT ABDOMEN AND PELVIS WITHOUT CONTRAST REASON FOR EXAM: Female, 41 years old. Abdominal pain RADIATION DOSAGE (If Supplied By Facility): CTDIvol = ( 20.91 ) mGy, DLP = ( 1050.41 ) mGycm TECHNIQUE: Transaxial images were obtained from the dome of the diaphragm to the symphysis pubis without oral contrast, and without intravenous contrast. Sagittal and coronal images were reconstructed. Individualized dose optimization techniques were used for this CT. COMPARISON: None. FINDINGS: There is smooth thickening of the interseptal lung markings at the lung bases. The visualized portions of the heart are within normal limits. Normal liver. Normal gallbladder and extrahepatic biliary system. Normal spleen. Normal pancreas. There is a 1.9 cm nodule associated with the left adrenal gland. Mild bilateral perinephric stranding. Normal bilateral ureters. Normal visualized stomach. Normal small intestine. There is postoperative change from left lower quadrant colostomy involving the transverse colon. Appendix is not visualized. Moderate atherosclerotic calcification of the abdominal vasculature. Normal inferior vena cava. Normal retroperitoneum. Normal urinary bladder. Patient is status post hysterectomy. There is an large fat-containing umbilical hernia. Multilevel degenerative change of the spine. CT/Abdomen/Pel W ORAL Cont Only IMPRESSION: 1. Large fat-containing umbilical hernia with no evidence of bowel involvement. 2. 1.9 cm left adrenal gland nodule. 3. Interstitial edema at the lung bases. Electronically Signed: Bernardo Preston MD at 4:01 EDT Tel , Service support , CC: Jose Luis Payne DO; Ric Mccrary MD Tester Operator Helper: Signed EMERGENCY DEPARTMENT Observed: 12/18/2017 Status: F Source: [place] SUMMARY 8:47 AM [facility] REPOSITORY [facility] Medical Records Department [address] [place] [address] Emergency Department Summary 12/18/17 0709 MR#: [id number] Acct: [id number] Name: KOURTNEY REZA Rep #: [id number] : 1975 41 From: Jose Luis Payne DO PCP: Ric Mccrary MD Status: REG ER ADDENDUM by Jagjit Montiel MD on 12/18/17 at 0847 Patient's labs no significant derangements. Hemoccult negative for colostomy contents. CT of the abdomen and pelvis showed no acute surgical or medical pathology that would require admission or acute intervention. Patient was given an additional dose of pain and nausea medication. She was feeling better at time of discharge. Patient that he has follow-up in place. Patient will return if any further concerns. Discharged home in improved condition. Date Jagjit Montiel MD cc: Ric Mccrary MD * Signed - ER Visit Summary Date of Service: 12/18/17 Chief Complaint: [] GI bleed and wound check History of Present Illness: The patient is a 41 F [] complaining of lower GI bleed with blood visualized in the colostomy bag. Patient reports she recently had a significant sacral decubitus surgical debridement which has healed nicely. She does report slight drainage for which she is slightly concerned. She also reports that she feels as if she may have some blood in her colostomy bag. She does report a previous history of C. difficile. She denies nausea and vomiting. Denies fevers. Symptoms started today. No other complaints at this time. Physical Examination: [] Afebrile, vital signs stable. 41-year-old female no acute distress. Cardiovascular exam is regular rate and rhythm. Lungs were auscultation. Abdomen is soft with mild lower quadrant discomfort. No guarding or rebound noted. Colostomy appears intact with discoloration to the output in the bag with a slight red tinge. Evaluation of the sacral area reveals a very nicely healing wound with a small linear open wound measuring approximately 3 cm x 0.5 cm. No pus drainage or surrounding cellulitis. Test Results: [] CBC reveals a hemoglobin of 8.9 which is similar to previous hemoglobin 2 months ago. Remainder of labs are pending at time of this dictation. CT of the abdomen and pelvis with p.o. contrast is pending at time of dictation. Emergency Department Course and Treatment: [] Patient underwent routine laboratory testing. A sample from the patient's colostomy bag was sent down for Hemoccult testing, C. difficile testing, and ova and parasites. CT of the abdomen and pelvis with oral contrast will be reviewed by my partner and disposition will be decided on at the completion of her workup. If the CT scan is negative, the patient will likely be discharged to follow-up with her plastic surgeon and general surgeon as scheduled next week. Treatment Plan: [] If workup negative, follow-up as previously mentioned. Disposition: [] Patient will be discharged if CT of the abdomen/pelvis reveals no acute pathology. Stable. Impression: [] Lower GI bleed Sacral wound check This note was generated with [employer] dictation software. It may contain incorrect words, spelling, and punctuation that were not noted in review of the chart prior to signing ED Disposition - Plan for ED Patient: Chief Complaint: GI Bleed Referrals: Ric Mccrary MD [Primary Care Provider] - What to do if you have Problems For any increased pain, shortness of breath, bleeding, nausea or vomiting, chest pain, or any unexpected problems, contact your Primary Care Provider. Call [facility] ([phone]) or report to the closest Emergency Room. Call 911 if necessary. 12/18/17721 <Electronically signed by Jose Luis Payne DO> Date Jose Luis Payne DO Cosigner Signature (If Indicated): Date CC: Ric Mccrary MD TYPE AND SCREEN Collected: 12/18/2017 Status: F Source: [place] 7:49 AM [facility] REPOSITORY Order Comment: REDRAW. PREVIOUS SPECIMEN WAS REJECTED FOR TESTING DUE TO HEMOLYSIS. SPECIMEN WAS DISCARDED. 12/18/17 0740 Romario Rodriguez. Reason for Type AND Screen/Red Cells: ROUTINE TYPE CODE TESTS RESULT OUT OF RANGE REFERENCE UNITS LAB B10.0800 A Normal BLOOD TYPE GEL NEGATIVE LAB B100.4000 High Antibody POSITIVE Screen Performed By: #### B101.7450, B101.2000 #### [facility] [address] [place], [address] ANTIBODY PANEL ID Collected: 12/18/2017 Status: C Source: [place] 7:49 AM [facility] REPOSITORY Order Comment: REDRAW. PREVIOUS SPECIMEN WAS REJECTED FOR TESTING DUE TO HEMOLYSIS. SPECIMEN WAS DISCARDED. 12/18/17 07 Romario Rodriguez. Reason for Type AND Screen/Red Cells: ROUTINE TYPE CODE TESTS RESULT OUT OF REFERENCE UNITS RANGE LAB B1 ANTIBODY PANEL Result Comment: ANTI-C ANTI-D ANTI-K Performed By: #### B101.7450, B1.1999 #### [facility] [address] [place], [address] DISCHARGE INSTRUCTION Observed: 12/18/2017 Status: F Source: [place] 7:20 AM [facility] REPOSITORY [facility] Medical Records Department [address] [place] [address] Discharge Instruction 12/18/17719 MR#: [id number] Acct: [id number] Name: KOURTNEY REZA Rep #: [id number] : 1975 41 From: Jose Luis Payne DO PCP: Ric Mccrary MD Status: REG ER ED Disposition - Plan for ED Patient: Disposition: Home or Assisted Living Chief Complaint: GI Bleed Instructions: ED Hematochezia Stable Referrals: Ric Mccrary MD [Primary Care Provider] - What to do if you have Problems For any increased pain, shortness of breath, bleeding, nausea or vomiting, chest pain, or any unexpected problems, contact your Primary Care Provider. Call [facility] ([phone]) or report to the closest Emergency Room. Call 911 if necessary. 12/18/17719 <Electronically signed by Jose Luis Panye DO> Date Jose Luis Payne DO Cosigner Signature (If Indicated): Date CC: Ric Mccrary MD Observed: 12/18/2017 Status: F Source: [place] STOOL OCCULT BLOOD 6:45 AM [facility] IFOB REPOSITORY STO iFOB Occult Blood Negative Performed By: #### M100.7900 #### [facility] [address] [place], [address] Observed: 12/18/2017 Status: F Source: [place] CDIFF (MOLECULAR) 6:45 AM [facility] REPOSITORY Cdiff-Molecular C. Diff DNA Negative- No toxigenic C. Diff DNA Detected NAAT METHOD Testing was performed using nucleic acid amplification Performed By: #### M100.6796 #### [facility] [address] [place], [place] [address] [place], [address] Observed: 12/18/2017 Status: F Source: [place] OVA AND PARASITES 6:45 AM [facility] REPOSITORY Comments: colostomy O + P OVA AND PARASITES EXAM, ROUTINE These results were obtained using wet preparation(s) and trichrome stained smear. This test does not include testing for Crytosporidium parvum, Cyclospora, or Microsporidia. TESTING PERFORMED AT [facility]. ORIGINAL REPORT ON FILE IN LAB CONTAINS ADDITIONAL TEST SITE INFORMATION. Ova/Parasite Exam NO OVA, CYSTS, OR PARASITES FOUND. Performed By: #### M600.5000 #### [facility] [address] [place] [address] [place], [address] CBC W/DIFF, AUTOMATED Collected: 12/18/2017 Status: F Source: [place] 6:10 AM [facility] REPOSITORY TYPE CODE TESTS RESULT OUT OF RANGE REFERENCE UNITS LAB L100.1000 4.4-11.0 K/mm3 Normal WBC 6.0 LAB L100.1200 4.2-5.4 M/mm3 Low RBC 2.70 LAB L100.1300 12.0-15.0 g/dl Low HGB 8.9 LAB L100.1400 37-47 % Low HCT 27.4 LAB L100.1500 81-99 fL High MCV 101.5 LAB L100.1600 27.0-32.0 pg High MCH 33.0 LAB L100.1700 32-36 g/gl Normal MCHC 32.5 LAB L100.1810 11.6-14.6 % High RDW CV 16.2 LAB L100.1820 35.1-43.9 fl High RDW SD 58.8 LAB L100.1900 150-450 K/mm3 Low PLT 136 LAB L100.2000 6.2-12.0 fl Normal MPV 8.2 LAB L100.2100 47-70 % Normal NEUT% 67.0 LAB L100.2200 19-41 % Normal LY% 21.4 LAB L100.2300 0-10 % Normal MONO% 4.8 LAB L100.2400 0-5 % High EO% 6.3 LAB L100.2500 0-1 % Normal BASO% 0.2 LAB L100.2550 0.0-0.9 % Normal IM GRAN % 0.300 Result Comment: IG% - Immature Granulocytes (promyelocytes, myelocytes and metamyelocytes) > 1% indicates that a LEFT SHIFT is Present. LAB L100.2620 2.0-7.7 X10 3/uL Normal Absolute Neut 4.0 LAB L100.2720 0.83-4.51 X10 3/ul Normal Absolute Lymph 1.28 Performed By: #### L100.0100 #### [facility] [address] [place], [place], [id number] PROTHROMBIN TIME W/INR Collected: 12/18/2017 Status: F Source: [place] 6:10 AM [facility] REPOSITORY TYPE CODE TESTS RESULT OUT OF RANGE REFERENCE UNITS LAB L300.4150 11.7-14.9 SECONDS Normal PROTIME 14.7 LAB L300.4200 Normal INR 1.2 Performed By: #### L300.3900, L300.4310 #### [facility] [address] [place], [place], [address] PARTIAL THROMBOPLAST Collected: 12/18/2017 Status: F Source: [place] TIME 6:10 AM [facility] REPOSITORY TYPE CODE TESTS RESULT OUT OF RANGE REFERENCE UNITS LAB L300.4310 24.1-36.2 Seconds Normal PTT 30.2 Performed By: #### L300.3900, L300.4310 #### [facility] [address] [place], [address] COMPREHENSIVE METABOLIC Collected: 12/18/2017 Status: F [facility] REPOSITORY TYPE CODE TESTS RESULT OUT OF RANGE REFERENCE UNITS LAB L501.0100 74-106 mg/dL High GLU 149 Result Comment: Fasting Glucose result greater than or equal to 126 mg/dL suggests DIABETES MELLITUS per A.D.A. criteria. Please note revised GLUCOSE reference range effective 2017. LAB L501.1000 7-18 mg/dL High BUN 38 LAB L501.1100 0.55-1.02 mg/dL High CREAT,SERUM 5.23 Result Comment: The validity of the calculated GFR AND GFRAA in patients over 70 years has not been determined. Clinical correlation is essential. LAB L501.1110 >60 mL/min Low EST GFR 10 Result Comment: Non- GFR Calc LAB L501.1115 >60 mL/min Low EST GFR - AA 12 Result Comment: GFR Calc LAB L501.1255 ml/min Normal Estimated CRCL 12.98 LAB L501.1300 10-20 RATIO Low BUN/CRE 7.3 LAB L501.1500 6.4-8. g/dL Normal 2 T PROT 7.8 LAB L501.1800 3.2-5. g/dL Low 0 ALB 3.0 LAB L501.1950 2.2-4. g/dL High 2 GLOB 4.8 LAB L501.2000 0.9-2. RATIO Low 4 A/G 0.6 LAB L501.2200 8.5-10 mg/dL Low .1 CA 8.2 LAB L501.4100 15-37 U/L Normal AST 31 Result Comment: Moderate Hemolysis, Result may be falsely increased. LAB L501.4305 45-117 U/L Normal ALK P 84 LAB L501.4405 13-56 U/L Normal ALT 28 LAB L501.4600 0.20-1.00 mg/dL Normal T BILI 0.40 LAB L501.5300 136-145 mmol/L Normal NA 140 LAB L501.5600 3.5-5.1 mmol/L Normal K 5.0 Result Comment: Moderate Hemolysis, Result may be falsely increased. LAB L501.5900 98-107 mmol/L Normal CL 103 LAB L501.6100 21.0-32.0 mmol/L Normal CO2 25.0 LAB L501.6200 5-15 Normal GAP 12 Performed By: #### L500.4050, L501.2450 #### [facility] [address] [place], [address] LIPASE Collected: 12/18/2017 Status: F Source: [place] 6:10 AM [facility] REPOSITORY TYPE CODE TESTS RESULT OUT OF REFERENCE UNITS RANGE LAB L501.2450 73-393 U/L High LIPASE 449 Performed By: #### L500.4050, L501.2450 #### [facility] [address] [place], [address] ABDOMEN/PEL W ORAL CONT Observed: 12/18/2017 Status: F Source: [place] ONLY 5:15 AM [facility] REPOSITORY [facility] Imaging Services [address] [place] [address] Abdomen/Pel W ORAL Cont Only MR#: [id number] Acct: [id number] Name: KOURTNEY REZA Rep #: [id number] : 1975 F 41 From: Val Solitario MD PCP: Ric Mccrary MD Status: REG ER Study: Abdomen/Pel W ORAL Cont Only Date of Exam: 12/18/17 Exam# [id number] Ordering Dr: Jose Luis Payne DO STUDY: CT ABDOMEN AND PELVIS WITHOUT CONTRAST REASON FOR EXAM: Female, 41 years old. Epigastric pain for 3 days. Patient has blood in the colostomy. RADIATION DOSAGE (If Supplied By Facility): CTDIvol = ( 21.51 ) mGy, DLP = ( 1064.23 ) mGycm TECHNIQUE: Transaxial images were obtained from the dome of the diaphragm to the symphysis pubis without oral contrast, and without intravenous contrast. Sagittal and coronal images were reconstructed. Enteric contrast may been administered through the ostomy. Individualized dose optimization techniques were used for this CT. COMPARISON: CT of the abdomen and pelvis dated August 12, 2017. FINDINGS: There are nodular opacities in the right middle lobe associated with some interstitial thickening. The interstitial thickening may be related to pulmonary fibrosis. No pleural effusions are visualized. The visualized portions of the heart are within normal limits. There is elongation of the right lobe of the liver consistent with a Kevin's lobe. Normal gallbladder and extrahepatic biliary system. There is mild splenomegaly. Normal pancreas. There is a left adrenal nodule measuring approximately 1.8 cm in greatest dimension. The right adrenal gland has a normal appearance. There is bilateral perinephric stranding. There are vascular calcifications of the renal latrell. Of both kidneys have generally normal position. There is no evidence for hydronephrosis, hydroureter or radiopaque ureteral calculus. There is a small hiatal hernia. There is no evidence for dilated bowel, ascites or pneumoperitoneum. Small bowel has a grossly normal appearance. There is a partial colon resection. The ostomy exits the central upper abdomen. There is some thickening of the walton of the rectum and transverse colon in part probably related to nondistention. There is non-visualization of the appendix. There is mild atherosclerotic calcification of the abdominal aorta, without a demonstrated aneurysm. Normal inferior vena cava. Normal retroperitoneum. Normal urinary bladder. There is absence of the uterus consistent with a prior hysterectomy. There is a parastomal ventral hernia at the colostomy site. There is also a right paramedian ventral hernia just to the right of the parastomal hernia. There are diffuse degenerative changes of the visualized lumbar spine. CT/Abdomen/Pel W ORAL Cont Only IMPRESSION: 1. Two ventral hernias, as described. 2. Small hiatal hernia. 3. Nonspecific right middle lobe pulmonary nodules. 4. No CT evidence of acute intra-abdominal disease. Electronically Signed: Val Solitario MD at 8:29 EDT , Service support , CC: Jose Luis Payne DO; Ric Mccrary MD Tester Operator Helper: Signed PROGRESS Observed: 12/13/2017 Status: COMPLETED Source: [place] 10:09 AM [facility] REPOSITORY HNO ID: [id number] Author: Paulina Sandoval LPN Service: (none) Author Type: (none) Type: Progress Notes Filed: 12/13/2017 10:09 AM Note Text: PATIENT NOTIFIED OF SAME. PROGRESS Observed: 12/13/2017 Status: COMPLETED Source: [place] 8:28 AM [facility] REPOSITORY HNO ID: [id number] Author: Ric Mccrary Service: (none) Author Type: Physician Type: Progress Notes Filed: 12/13/2017 9:56 AM Note Text: Call sugars in one week PROGRESS Observed: 12/11/2017 Status: COMPLETED Source: [place] 4:55 PM [facility] REPOSITORY HNO ID: [id number] Author: Chip López) Sherrill Service: (none) Author Type: Registered Nurse Type: Progress Notes Filed: 12/11/2017 4:59 PM Note Text: TRANSITION CARE MANAGEMENT (TCM) FOLLOW-UP NOTE Provider Action/FYI BS ranging 95-198, usually around 140-[address] Mccann's office, appt made for 12/25 @ 2:30 Faxed pt records and demographic sheet. Mailed Appointment Reminder to patient Patient identified by name and date of : YES Spoke to patient and Dr. Mccann's office Summary: BS ranging 95-198, usually around 140-150's Received all of her colostomy supplies and having no difficulty with leaks or peristomal skin No SOB or LE edema Continuing with [facility] D[facility] Environmental Issues Instructor plan for next outreach: Will follow up 3 weeks Signature Chip Tolliver, CAYDEN December 11, 2017 CNPTOUTREACH Observed: 12/11/2017 Status: COMPLETED Source: [place] 12:00 AM [facility] REPOSITORY Patient Outreach (FAMPWS) KOURTNEY REZA ([id number]) 1975 F TRN Date Time Provider Department 12/11/17 CHIP TOLLIVER (RN) MELISSA During your visit today, we recorded the following information about you: Chip Tolliver RN 12/11/2017 4:59 PM Signed TRANSITION CARE MANAGEMENT (TCM) FOLLOW-UP NOTE Provider Action/FYI BS ranging 95-198, usually around 140-[address] Mccann's office, appt made for 12/25 @ 2:30 Faxed pt records and demographic sheet. Mailed Appointment Reminder to patient Patient identified by name and date of : YES Spoke to patient and Dr. Mccann's office Summary: BS ranging 95-198, usually around 140-150's Received all of her colostomy supplies and having no difficulty with leaks or peristomal skin No SOB or LE edema Continuing with [facility] and Dialysis Environmental Issues Instructor plan for next outreach: Will follow up 3 weeks Signature Chip Tolliver RN December 11, 2017 Ric Mccrary MD 12/13/2017 9:56 AM Signed Call sugars in one week Paulina Sandoval LPN 12/13/2017 10:09 AM Signed PATIENT NOTIFIED OF SAME. Allergies As of Date: 12/11/2017 Noted Allergy Reaction LATEX 01/20/2006 2 - Rash NSAIDS (NON-STEROIDAL ANTI-INFLAM*05/12/2017 15 - Contraindication- [facility] [place]* PERCOCET (OXYCODONE-ACETAMINOPHEN)10/28/2013 1 - Mental Status Change REGLAN (METOCLOPRAMIDE) 07/03/2013 11 - Vomiting Date Reviewed: 11/02/2017 Reviewed by: Trinidad Linton LPN - Fully Assessed Reason for Visit: [facility] Follow Up [7420] Prescriptions as of 12/11/2017 Sig: FLUOXETINE 40 MG CAPSULE Take 1 capsule by mouth once * PROMETHAZINE 25 MG TABLET TAKE 1 TABLET BY MOUTH EVERY * HYDROCODONE 5 MG-ACETAMINOPHE* Take 1 tablet by mouth every * OSTOMY SUPPLIES 4 X 4 WAFER Holister wafer Reorder #[id number] OSTOMY SUPPLIES Ostomy bag Holister brand #18* INSULIN ASPART U-100 100 UNI* 8 units three times a day wit* INSULIN GLARGINE (U-100) 100 * Inject 5 Units subcutaneously* ATORVASTATIN 10 MG TABLET Take 1 tablet by mouth once d* ISOSORBIDE DINITRATE 20 MG TA* Take 1 tablet by mouth three * VANCOMYCIN 125 MG CAPSULE Take 1 capsule by mouth every* ALPRAZOLAM 0.5 MG TABLET Take 1 tablet by mouth as nee* COMPOUNDED PRESCRIPTION Miralax 238 gm bottle, (2) 32* LISINOPRIL 20 MG TABLET Take 20 mg by mouth once naman* BUDESONIDE DR - ER 3 MG CAPSU* Take 2 capsules by mouth once* ASPIRIN 81 MG TABLET,DELAYED * Take 1 tablet by mouth once d* NYSTATIN 100,000 UNIT/GRAM TO* Apply 1 application to affect* CARVEDILOL 25 MG TABLET Take 1 tablet by mouth twice * ATORVASTATIN 20 MG TABLET Take 1 tablet by mouth daily * ERGOCALCIFEROL (VITAMIN D2) 5* Take 1 capsule by mouth once * IRON, CARBONYL 45 MG TABLET Take 1 tablet by mouth three * AMLODIPINE 10 MG TABLET Take 1 tablet by mouth once d* DILTIAZEM CR 240 MG CAP Take 1 capsule by mouth once * PEN NEEDLE, DIABETIC 31 GAUGE* Use one needle per dose. 4 x * LANCETS Test blood sugar(s) 4- 6 times* BLOOD SUGAR DIAGNOSTIC STRIPS Test blood sugar(s) 4- 6 times* PEN NEEDLE, DIABETIC 29 GAUGE* 1 Each once daily. BLOOD SUGAR DIAGNOSTIC STRIPS Test blood sugar(s) 4 times d* ALBUTEROL (BULK) [facility] BLOOD-GLUCOSE METER KIT Freestyle LITE Meter Kit - Problem List As Of Date 12/11/2017 Noted Resolved VULVAL ABSCESS [N76.4] INVALID FOR*10/28/2013 Retinopathy due to secondary diabetes mellitus * Proteinuria [R80.9] Renal insufficiency [N28.9] 03/06/2017 Neuropathy [G62.9] INVALID FOR* HTN (hypertension) [I10] INVALID FOR* Anxiety [F41.9] INVALID FOR* More... Diabetes mellitus [E11.9] INVALID FOR* Cardiomyopathy, nonischemic [I42.8] INVALID FOR* Iron deficiency [E61.1] INVALID FOR* Anemia [D64.9] INVALID FOR* Scar condition and fibrosis of skin: Atrophic D*INVALID FOR* Rosacea [L71.9] INVALID FOR* Other acne [L70.8] INVALID FOR* Telangiectasia [I78.1] INVALID FOR* Irritant dermatitis [L24.9] INVALID FOR* Nodulocystic acne [L70.0] INVALID FOR* Dysfunctional uterine bleeding [N93.8] INVALID FOR* Vitamin D deficiency [E55.9] INVALID FOR* Asthma [J45.909] INVALID FOR* Obesity [E66.9] INVALID FOR* CHF (congestive heart failure) ([facility]) [I50.9] INVALID FOR* Chronic renal failure, stage 5 (HCC) [N18.5] INVALID FOR* More... Complication of dialysis access insertion ([facility])*INVALID FOR* GABRIEL (obstructive sleep apnea) [G47.33] INVALID FOR* More... Diarrhea, functional [K59.1] INVALID FOR* More... Bloody stools [K92.1] INVALID FOR* More... C. difficile diarrhea [A04.72] INVALID FOR* More... Encounter Status:Closed by CHIP TOLLIVER on 12/13/17 HEMOGLOBIN A1C Collected: 12/04/2017 Status: F Source: [place] 10:40 AM [facility] REPOSITORY TYPE CODE TESTS RESULT OUT OF REFERENCE UNITS RANGE LAB HGBA1C 4.3-5.6 % High Hemoglobin A1c 6.5 LAB HBA0 mg/dL Est. Average Glucose 140 Result Comment: eAG: (Estimated average glucose) is a calculated value from HgbA1c and is hobbies and crafts sales representative of the average blood glucose level in the last 2-3 month period. Performed By: #### HBA1C, LIPNF #### [facility] [address] [address] LIPID PANEL, NONFAST Collected: 12/04/2017 Status: F Source: [place] 10:40 AM [facility] REPOSITORY TYPE CODE TESTS RESULT OUT OF REFERENCE UNITS RANGE LAB CHOLNF <200 mg/dL Total Cholesterol NF 146 Result Comment: <200 mg/dL, Desirable 200-239 mg/dL, Borderline high >239 mg/dL, High LAB TRIGNF <150 mg/dL Triglycerides, NF 100 Result Comment: <150 mg/dL, Normal 150-199 mg/dL, Borderline high 200-499 mg/dL, High >499 mg/dL, Very high LAB HDLNF >39 mg/dL HDL Cholesterol, NF 46 Result Comment: 40-59 mg/dL, Acceptable >59 mg/dL, High: Negative risk factor for coronary heart disease <40 mg/dL, Low: Positive risk factor for coronary heart disease LAB LDLNF <100 mg/dL LDL Cholesterol, NF 80 Result Comment: <100 mg/dL, Optimal 100-129 mg/dL, Near optimal/above optimal 130-159 mg/dL, Borderline high 160-189 mg/dL, High >189 mg/dL, Very high Secondary prevention optimal LDL Cholesterol levels are recommended to be < 70 mg/dL LAB NOHDLN <130 mg/dL Non HDL Chol, 100 NF Result Comment: <130 mg/dL, Optimal 130-159 mg/dL, Near optimal/above optimal 160-189 mg/dL, Borderline high 190-219 mg/dL, High >219 mg/dL, Very high Secondary prevention optimal non HDL Cholesterol levels are recommended to be < 100 mg/dL LAB VLDLNF <30 mg/dL VLDL Cholesterol, NF 20 LAB TCHDLN <5.10 mg/dL T Chol/HDL Ratio NF 3.17 LAB LDLHDN <2.54 mg/dL LDL/HDL Ratio, NF 1.74 Result Comment: Reference: 1. National Cholesterol Education Program ATP III Guideline At-A-Glance Quick Desk Reference: National Heart, Lung, and Blood [place]. National Institutes of Health. 2001: NIH Publication No. 01-3305. 2. An International Atherosclerosis Society position paper: global recommendations for the management of dyslipidemia: executive summary, Atherosclerosis. 2014: 232(2):410-413. Performed By: #### HBA1C, LIPNF #### [facility] [address] [id number] PROGRESS Observed: 12/04/2017 Status: COMPLETED Source: [place] 9:55 AM [facility] REPOSITORY O ID: [id number] Author: Ric Mccrary Service: (none) Author Type: Physician Type: Progress Notes Filed: 12/04/2017 4:19 PM Note Text: Patient presents with: Hospital F/U HPI: Patient presents today for office visit for hospital follow up. Nursing Notes: Harriett Hernadez LPN 12/04/2017 9:53 AM Signed Told to see PCP for pain medication now. Dr Munroe said that time is up for him to prescribe since surgery date. Is following with him for debridement. Seen today and told that wound is now 9 cm long 1 x 1. Told also today that doesn't think that colostomy is going to be reversible and will have for lifetime. Provider Action/FYI: ? PLEASE FILE MEDICATION UPDATES ? ? ? Initial contact with patient post discharge, spoke to patient. Patient identified by name and . ? SUMMARY: -Pt discharged from [facility] on 11/16. -Follow up appointment on 11/22 with PCP. -Medication review done with patient. -Admitted for: 1. Acute diastolic CHF secondary to ESRD with missed dialysis session 2. Chest pain, elevated troponin 3. Hyperkalemia 4. ESRD 5. Acute on chronic hypoxic respiratory failure, secondary to #1 ? CONCERNS: Tired No chest pain since D/C BS ranging 130-140's ac and hs Wearing oxygen at 2 L at bedtime, helps dyspnea Has not been wearing CPAP, it was lost at [facility] when she was there for rehab ? NEW MEDICATIONS: Isosorbide DN [Isordil] 20 mg PO TID #90 tab ? MED CHANGES: Atorvastatin Calcium 10 mg PO QHS #30 tab (was 20 mg) ? MEDS HELD/DISCONTINUED: None ? BRIEF HOSPITAL COURSE: Copied from [facility] [place]: Patient admitted 11/14/17 due to shortness of breath. Patient has end-stage renal disease and was noted to have missed dialysis session. Chest x-ray on admission with prominent bilateral infiltrates. Acute diastolic CHF with acute on chronic hypoxic respiratory failure improved with dialysis. Hyperkalemia also resolved with dialysis. Patient was noted to have elevated troponin with intermittent chest pain. Cardiology consulted. Patient recently had a nuclear stress test June 2017 which was unremarkable. Patient will continue medical management at this time. Her Isordil was increased to 20 mg 3 times daily. Hypertensive crisis resolved with dialysis and increase in Isordil. She will follow with cardiology as outpatient in 6 months. Echocardiogram completed which showed an ejection fraction of 45%, compared to echo 07/19/2017, no appreciable changes noted. Patient had a previous cardiac catheterization in 2012 which showed normal coronary arteries. Patient was started on atorvastatin 10 mg nightly for hyperlipidemia. Patient's other past medical history includes type 2 diabetes mellitus, obesity, GERD, depression, anxiety, anemia of chronic disease, tobacco dependence, history of C. difficile, GABRIEL. Patient has home oxygen available and will continue supplemental oxygen. Encouraged her to continue dialysis schedule as ordered. ? Primary Care Physician: Ric Mccrary MD [Primary Care Provider] - Please follow up with your Primary Care Physician in: 1 Week Please Follow Up With: Nawaf Valdivia MD When: As scheduled Please Follow Up With: Wm Underwood MD When: 6 Months ? Chip Tolliver RN ? Did not keep scheduled tcm visit. Prior to that hospitalization was at [facility] 11/05-11/08 for pneumonia and esrd. Was also completing treatment fo c diff. Reviewed previous notes regarding issues complication her surgical issues. No further cough or congestion., reviewed extensive hospital records. Continues on dialysis. Did have a few issues with her fistula. Requiring pain meds. Discusses risks of using benzos and opiates together, especially given her renal status. OARRS website checked and validated. All prescriptions have been APPROPRIATELY filled. No suspicious activity was identified.- 12/04/2017 by Ric Mccrary MD. Has signed a controlled substance agreement. Cardio:following with cardiology every six months. DM: sugars are stable. HYPERTENSION:bp is well controlled. No chest pain or shortness of breath. No edema. HLD:no new myalgias. PSYCH: feeling down due to the colostomy issue. Is functioning well. Suggested counseling. Seeing Dr. Munroe/wound care for her wound. Again they are wondering if the colostomy is healing well. Is healing well. GASTROENTEROLOGY: following with Dr. Zhang. They are planning on doing scopes and ostomy. Labs being done by nephro. Reviewed extensive hospital records MEDICATIONS: Current Outpatient Prescriptions: HYDROcodone-acetaminophen (NORCO) 5-325 mg per tablet Take 1 tablet by mouth every 6 hours as needed. insulin aspart U-100 (NOVOLOG FLEXPEN U-100 INSULIN) 100 unit/mL inpn 8 units three times a day with meals insulin glargine (LANTUS SOLOSTAR U-100 INSULIN) 100 unit/mL (3 mL) inpn Inject 5 Units subcutaneously daily at bedtime. isosorbide dinitrate (ISORDIL, SORBITRATE) 20 mg tablet Take 1 tablet by mouth three times daily. ALPRAZolam (XANAX) 0.5 mg tablet Take 1 tablet by mouth as needed for up to 90 days. Take one tablet by mouth prior to dialysis as needed for anxiety. lisinopril (ZESTRIL, PRINIVIL) 20 mg tablet Take 20 mg by mouth once daily. budesonide, enteric coated (ENTOCORT EC) 3 mg 24 hr capsule Take 2 capsules by mouth once daily. FLUoxetine HCl (PROZAC) 40 mg capsule Take 1 capsule by mouth once daily. aspirin, enteric coated (ASPIRIN, ENTERIC COATED) 81 mg EC tablet Take 1 tablet by mouth once daily. promethazine (PHENERGAN) 25 mg tablet TAKE 1 TABLET BY MOUTH EVERY 6 HOURS NEEDED FOR NAUSEA/VOMITING. carvedilol (COREG) 25 mg tablet Take 1 tablet by mouth twice daily with meals. atorvastatin (LIPITOR) 20 mg tablet Take 1 tablet by mouth daily at bedtime. For cholesterol. ergocalciferol, vitamin D2, (VITAMIN D) 50,000 unit capsule Take 1 capsule by mouth once each week. carbonyl iron (FEOSOL) 45 mg tab Take 1 tablet by mouth three times daily with meals. amLODIPine (NORVASC) 10 mg tablet Take 1 tablet by mouth once daily. diltiazem CR (TIAZAC,TAZTIA XT) 240 mg 24 hr capsule Take 1 capsule by mouth once daily. Ostomy Supplies 4 X 4 wafr Holister wafer Reorder #[id number] Ostomy Supplies ([place]EMA BAG) [facility] [place] Holister brand #[id number] atorvastatin (LIPITOR) 10 mg tablet Take 1 tablet by mouth once daily. vancomycin (VANCOCIN) 125 mg capsule Take 1 capsule by mouth every 6 hours. Miralax / Gatorade Prep Miralax 238 gm bottle, (2) 32 oz bottles of Gatorade, AND 4 Dulcolax 5 mg tabs- as directed per instructions nystatin (MYCOSTATIN) powder Apply 1 application to affected area three times daily. insulin needles, DISPOSABLE, (PEN NEEDLE) 31 gauge x 5/16 ndle Use one needle per dose. 4 x per day. Lancets lancets Test blood sugar(s) 4-6 times daily. Dx: 250.0. Insulin: Yes blood sugar diagnostic (BLOOD GLUCOSE TEST) test strip Test blood sugar(s) 4-6 times daily. Dx: 250.0. Insulin: Yes Insulin [place], Disposable, (UNIFINE PENTIPS) 29 gauge x 1/2 ndle 1 Each once daily. blood sugar diagnostic (FREESTYLE LITE STRIPS) test strip Test blood sugar(s) 4 times daily. Dx: E11.9. Insulin: Yes ALBUTEROL, BULK, [facility] [place] Blood-Glucose Meter (FREESTYLE LITE METER) monitoring kit Freestyle LITE Meter Kit - No current facility-administered medications for this visit. ALLERGIES: ALLERGIES Allergen Reactions - Latex Rash - Nsaids (Non-Steroid* Contraindication-Medical Surgical - Percocet [Oxycodone* Mental Status Change - Reglan [Metoclopram* Vomiting PAST MEDICAL HISTORY Diagnosis Date - Anemia of chronic disease - Anxiety - Cardiomyopathy (HCC) last echo 08/07 showed normal LVF - CHF (congestive heart failure) ([facility]) - COPD (chronic obstructive pulmonary disease) (HCC) - DM (diabetes mellitus) ([facility]) type 2, approx age22 - ESRD on dialysis ([facility]) - Hirsutism - Hypertension - Necrotizing fasciitis ([facility]) 2009 due to wound of abdomen and MRSA - GABRIEL (obstructive sleep apnea) no CPAP usage - Other congenital anomaly of uterus bicornuate - Proteinuria - PVD (peripheral vascular disease) ([facility]) - Retinopathy due to secondary diabetes mellitus ([facility]) PAST SURGICAL HISTORY Procedure Laterality Date - APPENDECTOMY 06/2013 - AV FUSE, UPPR ARM, CEPHALIC Left 05-05-15 radial--cephalic - BALLN ANGIOPLASTY,PERC VENOUS Left 07-23-15 AV fistula - DELIVERY ONLY 2008 x 1 - COLONOSCOP W/ OR W/O [facility] SPEC 05/22/2017 Colonoscopy - path - lymphocytic colitis - DANDC, DIAG AND/OR THERAPEUTIC x3 Dilation AND curettage - INS TUNNEL CVC W/O PORT >=5 Right 07-10-15 port acath removed - LAP, SURG ENTEROLYSIS 10/10/13 laparoscopic lysis of adhesions - PAST SURGICAL HISTORY OF 2009 seven surgeries to debride necrotizing fasciitis, at c section site. - PAST SURGICAL HISTORY OF 2008 or 2009 hernia and tummy tuck. - PAST SURGICAL HISTORY OF pda closure at age 2 weeks. - PAST SURGICAL HISTORY OF Fracture repair left ankle, with removal of hardware. - PAST SURGICAL HISTORY OF 1977 Tumor removed from base of neck- benign - PAST SURGICAL HISTORY OF Cyst removed from chest - PAST SURGICAL HISTORY OF Cyst removed from Chest AND Coccyx area - REMOVAL CECILIO CVC W/O PUMP Right 09/09/15 Removal right IJ catheter - TUBAL LIGATION, 12/2008 at time of c/section - VAG HYST,RMV TUBE/OVARY 10/10/13 LAVH/RSO, left salpingectomy FAMILY HISTORY Problem Relation Age of Onset - Arthritis Mother - Asthma Mother - Diabetes Mother - Stroke Mother - Ovarian cancer Mother - Asthma Father - Diabetes Father - Heart Father - Lipids Father - Cervical Cancer Sister - Diabetes Paternal Grandmother - Heart Paternal Grandmother Social History Marital status: Spouse name: Years of education: 14 Number of children: 1 Occupational History 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 REVIEW OF SYSTEMS All other reviewed and negative other than HPI. HEALTH MAINTENANCE: Reviewed health maintenance issues today and recommended the following in detail. VITALS: BP 132/80 Pulse 88 Resp 16 Wt 88.5 kg (195 lb) LMP 09/16/2013 BMI 31.47 kg/m? Last 4 Encounter Wt Readings: Date: Wt: 12/04/2017 88.5 kg (195 lb) 11/02/2017 87.5 kg (193 lb) 11/02/2017 87.5 kg (193 lb) 08/29/2017 93 kg (205 lb) PHYSICAL EXAMINATION: General appearance: Well appearing, alert, in no acute distress, well-hydrated, well nourished. Skin: Skin color, texture, turgor normal, no suspicious rashes or lesions. Did not check wound since followed closely by wound center. Head: Normocephalic, no masses, lesions, tenderness or abnormalities Neck: Supple, no adenopathy; thyroid symmetric, normal size, no bruits Lungs: Lungs clear to auscultation. No wheezing, rhonchi, rales Heart: RRR without murmur, gallop, or rubs. No ectopy Abdomen: Normal abdominal exam, Abdomen soft, non-tender. Bowel sounds normal. No masses, organomegaly Extremities: No deformities, edema, skin discoloration, clubbing or cyanosis. Good capillary refill. Musculoskeletal: No joint swelling, deformity, or tenderness Psych: affect sad. ASSESSMENT/PLAN: 1. Congestive heart failure, unspecified HF chronicity, unspecified heart failure type (HCC) - ICD9: 428.0, ICD10: I50.9 (primary diagnosis) - continue dialysis. - see cardiology. - call if any chest pain, shortness of breath or edema. 2. 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 Neuropathy (HCC) - ICD9: 355.9, ICD10: G62.9 - continue meds. Call if any worsening. 4. Essential hypertension - ICD9: 401.9, ICD10: I10 - good control - Goal of BP <130/80 5. Anxiety - ICD9: 300.00, ICD10: F41.9 - continue meds. - FLUOXETINE 40 MG CAPSULE - PROMETHAZINE 25 MG TABLET 6. Type 2 diabetes mellitus with chronic kidney disease on chronic dialysis, with long-term current use of insulin (HCC) - ICD9: 250.40, 585.9, V45.11, V58.67, ICD10: E11.22, N18.6, Z99.2, Z79.4 Controlled. - Continue current medications - HGB A1C - LIPID PANEL, NONFASTING 7. Cardiomyopathy, nonischemic (HCC) - ICD9: 425.4, ICD10: I42.8 - per cardio 8. Iron deficiency - ICD9: 280.9, ICD10: E61.1 - followed by nephro 9. Chronic renal failure, stage 5 (HCC) - ICD9: 585.5, ICD10: N18.5 - continue dialysis 10. Wound of buttock, unspecified laterality, subsequent encounter - ICD9: V58.89, 877.0, ICD10: S31.809D - explained that given her benzo use and impaired renal clearance of medications, I would feel better if pain management would follow with us. oarrs reviewed. Discussed risks of meds including mixing benzo and opiate medications. She does have real marked issues that require some form of analgesia. - CONSULT TO PAIN MGT ANESTHESIA - HYDROCODONE 5 MG-ACETAMINOPHEN 325 MG TABLET 11. Chronic pain syndrome - ICD9: 338.4, ICD10: G89.4 - CONSULT TO PAIN MGT ANESTHESIA - HYDROCODONE 5 MG-ACETAMINOPHEN 325 MG TABLET Ric Mccrary MD I spent 45 minutes in the visit, with more than 50% of the total [id number] time of the visit in counseling / coordination of care. ERIC Observed: 12/04/2017 Status: COMPLETED Source: [facility] 9:40 AM [facility] REPOSITORY [facility] KOURTNEY REZA ([id number]) 1975 F TRN Date Time Provider Department 12/04/17 9:40 AM [facility] During your visit today, we recorded the following information about you: Pulse Respiration Blood pressure Weight 88/minute 16/minute 132/80 88.5 kg Harriett Hernadez LPN 12/04/2017 9:53 AM Signed Told to see PCP for pain medication now. Dr Munroe said that time is up for him to prescribe since surgery date. Is following with him for debridement. Seen today and told that wound is now 9 cm long 1 x 1. Told also today that doesn't think that colostomy is going to be reversible and will have for lifetime. Ric Mccrary 12/04/2017 4:19 PM Signed Patient presents with: Hospital F/U HPI: Patient presents today for office visit for hospital follow up. Nursing Notes: Harriett Hernadez LPN 12/04/2017 9:53 AM Signed Told to see PCP for pain medication now. Dr Munroe said that time is up for him to prescribe since surgery date. Is following with him for debridement. Seen today and told that wound is now 9 cm long 1 x 1. Told also today that doesn't think that colostomy is going to be reversible and will have for lifetime. Provider Action/FYI: ? PLEASE FILE MEDICATION UPDATES ? ? ? Initial contact with patient post discharge, spoke to patient. Patient identified by name and . ? SUMMARY: -Pt discharged from [facility] on 11/16. -Follow up appointment on 11/22 with PCP. -Medication review done with patient. -Admitted for: 1. Acute diastolic CHF secondary to ESRD with missed dialysis session 2. Chest pain, elevated troponin 3. Hyperkalemia 4. ESRD 5. Acute on chronic hypoxic respiratory failure, secondary to #1 ? CONCERNS: Tired No chest pain since D/C BS ranging 130-140's ac and hs Wearing oxygen at 2 L at bedtime, helps dyspnea Has not been wearing CPAP, it was lost at [facility] when she was there for rehab ? NEW MEDICATIONS: Isosorbide DN [Isordil] 20 mg PO TID #90 tab ? MED CHANGES: Atorvastatin Calcium 10 mg PO QHS #30 tab (was 20 mg) ? MEDS HELD/DISCONTINUED: None ? BRIEF HOSPITAL COURSE: Copied from [facility]: Patient admitted 11/14/17 due to shortness of breath. Patient has end-stage renal disease and was noted to have missed dialysis session. Chest x-ray on admission with prominent bilateral infiltrates. Acute diastolic CHF with acute on chronic hypoxic respiratory failure improved with dialysis. Hyperkalemia also resolved with dialysis. Patient was noted to have elevated troponin with intermittent chest pain. Cardiology consulted. Patient recently had a nuclear stress test June 2017 which was unremarkable. Patient will continue medical management at this time. Her Isordil was increased to 20 mg 3 times daily. Hypertensive crisis resolved with dialysis and increase in Isordil. She will follow with cardiology as outpatient in 6 months. Echocardiogram completed which showed an ejection fraction of 45%, compared to echo 07/19/2017, no appreciable changes noted. Patient had a previous cardiac catheterization in 2012 which showed normal coronary arteries. Patient was started on atorvastatin 10 mg nightly for hyperlipidemia. Patient's other past medical history includes type 2 diabetes mellitus, obesity, GERD, depression, anxiety, anemia of chronic disease, tobacco dependence, history of C. difficile, GABRIEL. Patient has home oxygen available and will continue supplemental oxygen. Encouraged her to continue dialysis schedule as ordered. ? Primary Care Physician: Ric Mccrary MD [Primary Care Provider] - Please follow up with your Primary Care Physician in: 1 Week Please Follow Up With: Nawaf Valdivia MD When: As scheduled Please Follow Up With: Wm Underwood MD When: 6 Months ? Chip Tolliver RN ? Did not keep scheduled tcm visit. Prior to that hospitalization was at [facility] 11/05-11/08 for pneumonia and esrd. Was also completing treatment fo c diff. Reviewed previous notes regarding issues complication her surgical issues. No further cough or congestion., reviewed extensive hospital records. Continues on dialysis. Did have a few issues with her fistula. Requiring pain meds. Discusses risks of using benzos and opiates together, especially given her renal status. OARRS website checked and validated. All prescriptions have been APPROPRIATELY filled. No suspicious activity was identified.- 12/04/2017 by Ric Mccrary MD. Has signed a controlled substance agreement. Cardio:following with cardiology every six months. DM: sugars are stable. HYPERTENSION:bp is well controlled. No chest pain or shortness of breath. No edema. HLD:no new myalgias. PSYCH: feeling down due to the colostomy issue. Is functioning well. Suggested counseling. Seeing Dr. Munroe/wound care for her wound. Again they are wondering if the colostomy is healing well. Is healing well. GASTROENTEROLOGY: following with Dr. Zhang. They are planning on doing scopes and ostomy. Labs being done by nephro. Reviewed extensive hospital records MEDICATIONS: Current Outpatient Prescriptions: HYDROcodone-acetaminophen (NORCO) 5-325 mg per tablet Take 1 tablet by mouth every 6 hours as needed. insulin aspart U-100 (NOVOLOG FLEXPEN U-100 INSULIN) 100 unit/mL inpn 8 units three times a day with meals insulin glargine (LANTUS SOLOSTAR U-100 INSULIN) 100 unit/mL (3 mL) inpn Inject 5 Units subcutaneously daily at bedtime. isosorbide dinitrate (ISORDIL, SORBITRATE) 20 mg tablet Take 1 tablet by mouth three times daily. ALPRAZolam (XANAX) 0.5 mg tablet Take 1 tablet by mouth as needed for up to 90 days. Take one tablet by mouth prior to dialysis as needed for anxiety. lisinopril (ZESTRIL, PRINIVIL) 20 mg tablet Take 20 mg by mouth once daily. budesonide, enteric coated (ENTOCORT EC) 3 mg 24 hr capsule Take 2 capsules by mouth once daily. FLUoxetine HCl (PROZAC) 40 mg capsule Take 1 capsule by mouth once daily. aspirin, enteric coated (ASPIRIN, ENTERIC COATED) 81 mg EC tablet Take 1 tablet by mouth once daily. promethazine (PHENERGAN) 25 mg tablet TAKE 1 TABLET BY MOUTH EVERY 6 HOURS NEEDED FOR NAUSEA/VOMITING. carvedilol (COREG) 25 mg tablet Take 1 tablet by mouth twice daily with meals. atorvastatin (LIPITOR) 20 mg tablet Take 1 tablet by mouth daily at bedtime. For cholesterol. ergocalciferol, vitamin D2, (VITAMIN D) 50,000 unit capsule Take 1 capsule by mouth once each week. carbonyl iron (FEOSOL) 45 mg tab Take 1 tablet by mouth three times daily with meals. amLODIPine (NORVASC) 10 mg tablet Take 1 tablet by mouth once daily. diltiazem CR (TIAZAC,TAZTIA XT) 240 mg 24 hr capsule Take 1 capsule by mouth once daily. Ostomy Supplies 4 X 4 wafr [employer] wafer Reorder #[id number] Ostomy Supplies (ENEMA BAG) [facility] [place] [employer] brand #[id number] atorvastatin (LIPITOR) 10 mg tablet Take 1 tablet by mouth once daily. vancomycin (VANCOCIN) 125 mg capsule Take 1 capsule by mouth every 6 hours. Miralax / Gatorade Prep Miralax 238 gm bottle, (2) 32 oz bottles of Gatorade, AND 4 Dulcolax 5 mg tabs- as directed per instructions nystatin (MYCOSTATIN) powder Apply 1 application to affected area three times daily. insulin needles, DISPOSABLE, (PEN NEEDLE) 31 gauge x 5/16 ndle Use one needle per dose. 4 x per day. Lancets lancets Test blood sugar(s) 4-6 times daily. Dx: 250.0. Insulin: Yes blood sugar diagnostic (BLOOD GLUCOSE TEST) test strip Test blood sugar(s) 4-6 times daily. Dx: 250.0. Insulin: Yes Insulin [place], Disposable, (UNIFINE PENTIPS) 29 gauge x 1/2 ndle 1 Each once daily. blood sugar diagnostic (FREESTYLE LITE STRIPS) test strip Test blood sugar(s) 4 times daily. Dx: E11.9. Insulin: Yes ALBUTEROL, BULK, MISC Blood-Glucose Meter (FREESTYLE LITE METER) monitoring kit Freestyle LITE Meter Kit - No current facility-administered medications for this visit. ALLERGIES: ALLERGIES Allergen Reactions - Latex Rash - Nsaids (Non-Steroid* Contraindication-Medical Surgical - Percocet [Oxycodone* Mental Status Change - Reglan [Metoclopram* Vomiting PAST MEDICAL HISTORY Diagnosis Date - Anemia of chronic disease - Anxiety - Cardiomyopathy (HCC) last echo 08/07 showed normal LVF - CHF (congestive heart failure) ([facility]) - COPD (chronic obstructive pulmonary disease) (HCC) - DM (diabetes mellitus) ([facility]) type 2, approx age22 - ESRD on dialysis (HCC) - Hirsutism - Hypertension - Necrotizing fasciitis (HCC) 2009 due to wound of abdomen and MRSA - GABRIEL (obstructive sleep apnea) no CPAP usage - Other congenital anomaly of uterus bicornuate - Proteinuria - PVD (peripheral vascular disease) ([facility]) - 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) PAST SURGICAL HISTORY Procedure Laterality Date - APPENDECTOMY 06/2013 - AV FUSE, UPPR ARM, CEPHALIC Left 05-05-15 radial--cephalic - BALLN ANGIOPLASTY,PERC VENOUS Left 07-23-15 AV fistula - DELIVERY ONLY 2008 x 1 - [facility]2017 Colonoscopy - path - lymphocytic colitis - DANDC, DIAG AND/OR THERAPEUTIC x3 Dilation AND curettage - INS TUNNEL CVC W/O PORT >=5 Right 07-10-15 port acath removed - LAP, SURG ENTEROLYSIS 10/10/13 laparoscopic lysis of adhesions - PAST SURGICAL HISTORY OF 2009 seven surgeries to debride necrotizing fasciitis, at c section site. - PAST SURGICAL HISTORY OF 2008 or 2009 hernia and tummy tuck. - PAST SURGICAL HISTORY OF pda closure at age 2 weeks. - PAST SURGICAL HISTORY OF Fracture repair left ankle, with removal of hardware. - PAST SURGICAL HISTORY OF 1977 Tumor removed from base of neck- benign - PAST SURGICAL HISTORY OF Cyst removed from chest - PAST SURGICAL HISTORY OF Cyst removed from Chest AND Coccyx area - REMOVAL CECILIO CVC W/O PUMP Right 09/09/15 Removal right IJ catheter - TUBAL LIGATION, 12/2008 at time of c/section - VAG HYST,RMV TUBE/OVARY 10/10/13 LAVH/RSO, left salpingectomy FAMILY HISTORY Problem Relation Age of Onset - Arthritis Mother - Asthma Mother - Diabetes Mother - Stroke Mother - Ovarian cancer Mother - Asthma Father - Diabetes Father - Heart Father - Lipids Father - Cervical Cancer Sister - Diabetes Paternal Grandmother - Heart Paternal Grandmother Social History Marital status: Spouse name: Years of education: 14 Number of children: 1 Occupational History 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 REVIEW OF SYSTEMS All other reviewed and negative other than HPI. HEALTH MAINTENANCE: Reviewed health maintenance issues today and recommended the following in detail. VITALS: BP 132/80 Pulse 88 Resp 16 Wt 88.5 kg (195 lb) LMP 09/16/2013 BMI 31.47 kg/m? Last 4 Encounter Wt Readings: Date: Wt: 12/04/2017 88.5 kg (195 lb) 11/02/2017 87.5 kg (193 lb) 11/02/2017 87.5 kg (193 lb) 08/29/2017 93 kg (205 lb) PHYSICAL EXAMINATION: General appearance: Well appearing, alert, in no acute distress, well-hydrated, well nourished. Skin: Skin color, texture, turgor normal, no suspicious rashes or lesions. Did not check wound since followed closely by wound center. Head: Normocephalic, no masses, lesions, tenderness or abnormalities Neck: Supple, no adenopathy; thyroid symmetric, normal size, no bruits Lungs: Lungs clear to auscultation. No wheezing, rhonchi, rales Heart: RRR without murmur, gallop, or rubs. No ectopy Abdomen: Normal abdominal exam, Abdomen soft, non-tender. Bowel sounds normal. No masses, organomegaly Extremities: No deformities, edema, skin discoloration, clubbing or cyanosis. Good capillary refill. Musculoskeletal: No joint swelling, deformity, or tenderness Psych: affect sad. ASSESSMENT/PLAN: 1. Congestive heart failure, unspecified HF chronicity, unspecified heart failure type (HCC) - ICD9: 428.0, ICD10: I50.9 (primary diagnosis) - continue dialysis. - see cardiology. - call if any chest pain, shortness of breath or edema. 2. 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 Neuropathy (HCC) - ICD9: 355.9, ICD10: G62.9 - continue meds. Call if any worsening. 4. Essential hypertension - ICD9: 401.9, ICD10: I10 - good control - Goal of BP <130/80 5. Anxiety - ICD9: 300.00, ICD10: F41.9 - continue meds. - FLUOXETINE 40 MG CAPSULE - PROMETHAZINE 25 MG TABLET 6. Type 2 diabetes mellitus with chronic kidney disease on chronic dialysis, with long-term current use of insulin (HCC) - ICD9: 250.40, 585.9, V45.11, V58.67, ICD10: E11.22, N18.6, Z99.2, Z79.4 Controlled. - Continue current medications - HGB A1C - LIPID PANEL, NONFASTING 7. Cardiomyopathy, nonischemic (HCC) - ICD9: 425.4, ICD10: I42.8 - per cardio 8. Iron deficiency - ICD9: 280.9, ICD10: E61.1 - followed by nephro 9. Chronic renal failure, stage 5 (HCC) - ICD9: 585.5, ICD10: N18.5 - continue dialysis 10. Wound of buttock, unspecified laterality, subsequent encounter - ICD9: V58.89, 877.0, ICD10: S31.809D - explained that given her benzo use and impaired renal clearance of medications, I would feel better if pain management would follow with us. oarrs reviewed. Discussed risks of meds including mixing benzo and opiate medications. She does have real marked issues that require some form of analgesia. - CONSULT TO PAIN MGT ANESTHESIA - HYDROCODONE 5 MG-ACETAMINOPHEN 325 MG TABLET 11. Chronic pain syndrome - ICD9: 338.4, ICD10: G89.4 - CONSULT TO PAIN MGT ANESTHESIA - HYDROCODONE 5 MG-ACETAMINOPHEN 325 MG TABLET Ric Mccrary MD I spent 45 minutes in the visit, with more than 50% of the total [id number] time of the visit in counseling / coordination of care. 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) [E13.319] Neuropathy (HCC) [G62.9] Essential hypertension [I10] Anxiety [F41.9] Type 2 diabetes mellitus with chronic kidney disease on chronic dialysis, with long-term current use of insulin (HCC) [E11.22, N18.6, Z99.2, Z79.4] Cardiomyopathy, nonischemic (HCC) [I42.8] Iron deficiency [E61.1] Chronic renal failure, stage 5 (HCC) [N18.5] Wound of buttock, unspecified laterality, subsequent encounter [S31.789D] Chronic pain syndrome [G89.4] Order(s):FLUoxetine HCl (PROZAC) 40 mg capsuleTake 1 capsule by mouth once daily.Disp: 90 capsuleRfl: 0 promethazine (PHENERGAN) 25 mg tabletTAKE 1 TABLET BY MOUTH EVERY 6 HOURS NEEDED FOR NAUSEA/VOMITING.Disp: 30 tabletRfl: 5 HGB A1C [KCMVA2U] Order #: [id number] FUTURE LIPID PANEL, NONFASTING [SQLIPNF] Order #: [id number] FUTURE CONSULT TO PAIN MGT ANESTHESIA [19991029] Order #: [id number]: 1 HYDROcodone-acetaminophen (NORCO) 5-325 mg per tabletTake 1 tablet by mouth every 6 hours as needed for up to 30 days.Disp: 30 tabletRfl: 0 Prescriptions as of 12/04/2017 Sig: FLUOXETINE 40 MG CAPSULE Take 1 capsule by mouth once * PROMETHAZINE 25 MG TABLET TAKE 1 TABLET BY MOUTH EVERY * HYDROCODONE 5 MG-ACETAMINOPHE* Take 1 tablet by mouth every * INSULIN ASPART U-100 100 UNI* 8 units three times a day wit* INSULIN GLARGINE (U-100) 100 * Inject 5 Units subcutaneously* ISOSORBIDE DINITRATE 20 MG TA* Take 1 tablet by mouth three * ALPRAZOLAM 0.5 MG TABLET Take 1 tablet by mouth as nee* LISINOPRIL 20 MG TABLET Take 20 mg by mouth once naman* BUDESONIDE DR - ER 3 MG CAPSU* Take 2 capsules by mouth once* ASPIRIN 81 MG TABLET,DELAYED * Take 1 tablet by mouth once d* CARVEDILOL 25 MG TABLET Take 1 tablet by mouth twice * ATORVASTATIN 20 MG TABLET Take 1 tablet by mouth daily * ERGOCALCIFEROL (VITAMIN D2) 5* Take 1 capsule by mouth once * IRON, CARBONYL 45 MG TABLET Take 1 tablet by mouth three * AMLODIPINE 10 MG TABLET Take 1 tablet by mouth once d* DILTIAZEM CR 240 MG CAP Take 1 capsule by mouth once * OSTOMY SUPPLIES 4 X 4 WAFER Holister wafer Reorder #[id number] OSTOMY SUPPLIES Ostomy bag Holister brand #18* ATORVASTATIN 10 MG TABLET Take 1 tablet by mouth once d* VANCOMYCIN 125 MG CAPSULE Take 1 capsule by mouth every* COMPOUNDED PRESCRIPTION Miralax 238 gm bottle, (2) 32* NYSTATIN 100,000 UNIT/GRAM TO* Apply 1 application to affect* PEN NEEDLE, DIABETIC 31 GAUGE* Use one needle per dose. 4 x * LANCETS Test blood sugar(s) 4- 6 times* BLOOD SUGAR DIAGNOSTIC STRIPS Test blood sugar(s) 4- 6 times* PEN NEEDLE, DIABETIC 29 GAUGE* 1 Each once daily. BLOOD SUGAR DIAGNOSTIC STRIPS Test blood sugar(s) 4 times d* ALBUTEROL (BULK) [facility] [place] BLOOD-GLUCOSE METER KIT Freestyle LITE Meter Kit - Problem List As Of Date 12/04/2017 Noted Resolved VULVAL ABSCESS [N76.4] INVALID FOR*10/28/2013 Retinopathy due to secondary diabetes mellitus * Proteinuria [R80.9] Renal insufficiency [N28.9] 03/06/2017 Neuropathy [G62.9] INVALID FOR* HTN (hypertension) [I10] INVALID FOR* Anxiety [F41.9] INVALID FOR* More... Diabetes mellitus [E11.9] INVALID FOR* Cardiomyopathy, nonischemic [I42.8] INVALID FOR* Iron deficiency [E61.1] INVALID FOR* Anemia [D64.9] INVALID FOR* Scar condition and fibrosis of skin: Atrophic D*INVALID FOR* Rosacea [L71.9] INVALID FOR* Other acne [L70.8] INVALID FOR* Telangiectasia [I78.1] INVALID FOR* Irritant dermatitis [L24.9] INVALID FOR* Nodulocystic acne [L70.0] INVALID FOR* Dysfunctional uterine bleeding [N93.8] INVALID FOR* Vitamin D deficiency [E55.9] INVALID FOR* Asthma [J45.909] INVALID FOR* Obesity [E66.9] INVALID FOR* CHF (congestive heart failure) ([facility]) [I50.9] INVALID FOR* Chronic renal failure, stage 5 (HCC) [N18.5] INVALID FOR* More... Complication of dialysis access insertion (HCC)*INVALID FOR* GABRIEL (obstructive sleep apnea) [G47.33] INVALID FOR* More... Diarrhea, functional [K59.1] INVALID FOR* More... Bloody stools [K92.1] INVALID FOR* More... C. difficile diarrhea [A04.72] INVALID FOR* More... Visit Notes: >> Harriett Hernadez LPN Mon December 04, 2017 9:47 AM Status: Signed Told to see PCP for pain medication now. Dr Munroe said that time is up for him to prescribe since surgery date. Is following with him for debridement. Seen today and told that wound is now 9 cm long 1 x 1. Told also today that doesn't think that colostomy is going to be reversible and will have for lifetime. Prescriptions ordered this encounter Disp Refills Start End FLUOXETINE 40 MG CAPSULE 90 c* 0 12/04/2017 Route: ORAL Sig: Take 1 capsule by mouth once daily. PROMETHAZINE 25 MG TABLET 30 t* 5 12/04/2017 Sig: TAKE 1 TABLET BY MOUTH EVERY 6 HOURS NEEDED FOR NAUSEA/VOMITING. HYDROCODONE 5 MG-ACETAMINOPHEN 325 M* 30 t* 0 12/04/2017 01/03/2018 Class: Print RX Route: ORAL Sig: Take 1 tablet by mouth every 6 hours as needed for up to 30 days. Medications Discontinued During This Encounter FLUoxetine HCl (PROZAC) 40 mg capsule 90 c* 0 06/29/2017 12/04/2017 Route: ORAL Sig: Take 1 capsule by mouth once daily. Disc: Reason for discontinue is not on file. promethazine (PHENERGAN) 25 mg tablet 30 t* 5 06/29/2017 12/04/2017 Sig: TAKE 1 TABLET BY MOUTH EVERY 6 HOURS NEEDED FOR NAUSEA/VOMITING. Disc: Reason for discontinue is not on file. HYDROcodone-acetaminophen (NORCO) 5-* 12/04/2017 Class: Historical Med Route: ORAL Sig: Take 1 tablet by mouth every 6 hours as needed. Disc: Reason for discontinue is not on file. Disposition: Return in about 2 months (around 02/03/2018). Follow-up and Disposition History Recorded Encounter Status:Closed by RIC MCCRARY MD on 12/04/17 PROGRESS Observed: 12/01/2017 Status: COMPLETED Source: [place] 3:19 PM [facility] REPOSITORY HNO ID: [id number] Author: Ric Mccrary Service: (none) Author Type: Physician Type: Progress Notes Filed: 12/01/2017 4:35 PM Note Text: noted PROGRESS Observed: 12/01/2017 Status: COMPLETED Source: [place] 2:17 PM [facility] REPOSITORY HNO ID: [id number] Author: Chip Tolliver (Rn) Service: (none) Author Type: Registered Nurse Type: Progress Notes Filed: 12/01/2017 3:16 PM Note Text: TRANSITION CARE MANAGEMENT (TCM) FOLLOW-UP NOTE Provider Action/FYI Pt states she will come to PCP on Monday Attending dialysis sessions BS ranging from 70-145, most of BS are in low 100's. Appetite poor to fair. Patient identified by name and date of : YES TC to patient, asked if she just received her flanges, states yes. Asked if she needs to be seen for her peristomal skin, states no, she feels it will clear now she has all of her products. Informed she won't get [place] bags until Mon, states she doesn't need her bags until then. Informed PCC called [facility] and they said pt's mom picked up supplies and usually they don't use pt's CPAP. Pt states they did use her CPAP. Informed Medicare only pays for CPAP every 5 years so she may want to discuss with [facility], verbalized agreement. Discussed missing TCM appt and PCP would like to see pt, states she will come to walk in clinic on Monday. TC to Harriett Roman at [facility], states patient's mother picked up all her belongings when pt was discharged from [facility]. States 99% of the time they don't use patient's CPAPs and they don't have any record of anyone calling about a missing CPAP. TC to Vern at [facility] regarding colostomy bags and flanges and CPAP machine. [facility] provided CPAP machine on 02/16/17. States flanges should have been delivered at 2:22 PM. [place] bags won't be delivered until Mon Spoke to patient Summary: BS ranging from 70-145, most of BS are in low 100's. Appetite poor to fair. Pt has attended all dialysis appts since hospital discharge. Wearing O2 at night. States [facility] told pt they can't find her CPAP machine. Concerns: Pt has been out of colostomy supplies for two days. States she called [facility] and they ordered them and supplies should come by 5 PM today. States they don't have anything in store to give her in the mean time. Jenny-stomal skin reddened with blisters States she has been applying Stomahesive powder to protect skin. Environmental Issues Instructor plan for next outreach: Will follow up one week Signature Chip Tolliver RN December 01, 2017 [facility] Observed: 12/01/2017 Status: COMPLETED Source: [place] 12:00 AM [facility] REPOSITORY Patient Outreach ([facility]) KOURTNEY REZA ([id number]) 1975 F TRN Date Time Provider Department 12/01/17 CHIP TOLLIVER (RN) [facility] During your visit today, we recorded the following information about you: Chip Tolliver (Rn) 12/01/2017 3:16 PM Signed TRANSITION CARE MANAGEMENT (TCM) FOLLOW-UP NOTE Provider Action/FYI Pt states she will come to PCP on Monday Attending dialysis sessions BS ranging from 70-145, most of BS are in low 100's. Appetite poor to fair. Patient identified by name and date of : YES TC to patient, asked if she just received her flanges, states yes. Asked if she needs to be seen for her peristomal skin, states no, she feels it will clear now she has all of her products. Informed she won't get [place] bags until Mon, states she doesn't need her bags until then. Informed PCC called [facility] and they said pt's mom picked up supplies and usually they don't use pt's CPAP. Pt states they did use her CPAP. Informed Medicare only pays for CPAP every 5 years so she may want to discuss with Melissa, verbalized agreement. Discussed missing TCM appt and PCP would like to see pt, states she will come to walk in clinic on Monday. TC to Harriett Roman at [facility], states patient's mother picked up all her belongings when pt was discharged from [facility]. States 99% of the time they don't use patient's CPAPs and they don't have any record of anyone calling about a missing CPAP. TC to Vern at [facility] regarding colostomy bags and flanges and CPAP machine. [facility] provided CPAP machine on 02/16/17. States flanges should have been delivered at 2:22 PM. [place] bags won't be delivered until Mon Spoke to patient Summary: BS ranging from 70-145, most of BS are in low 100's. Appetite poor to fair. Pt has attended all dialysis appts since hospital discharge. Wearing O2 at night. States [facility] told pt they can't find her CPAP machine. Concerns: Pt has been out of colostomy supplies for two days. States she called [facility] and they ordered them and supplies should come by 5 PM today. States they don't have anything in store to give her in the mean time. Jenny-stomal skin reddened with blisters States she has been applying Stomahesive powder to protect skin. Environmental Issues Instructor plan for next outreach: Will follow up one week Signature Chip Tolliver, [place] December 01, 2017 Ric Mccrary 12/01/2017 4:35 PM Signed noted Allergies As of Date: 12/01/2017 Noted Allergy Reaction LATEX 01/20/2006 2 - Rash NSAIDS (NON-STEROIDAL ANTI-INFLAM*05/12/2017 15 - Contraindication- Medical [facility]* PERCOCET (OXYCODONE-ACETAMINOPHEN)10/28/2013 1 - Mental Status Change REGLAN (METOCLOPRAMIDE) 07/03/2013 11 - Vomiting Date Reviewed: 11/02/2017 Reviewed by: Trinidad Linton LPN - Fully Assessed Reason for Visit: [facility] Follow Up [3610] Prescriptions as of 12/01/2017 Sig: OSTOMY SUPPLIES 4 X 4 WAFER Holister wafer Reorder #[id number] OSTOMY SUPPLIES Ostomy bag Holister brand #18* INSULIN ASPART U-100 100 UNI* 8 units three times a day wit* INSULIN GLARGINE (U-100) 100 * Inject 5 Units subcutaneously* ATORVASTATIN 10 MG TABLET Take 1 tablet by mouth once d* ISOSORBIDE DINITRATE 20 MG TA* Take 1 tablet by mouth three * VANCOMYCIN 125 MG CAPSULE Take 1 capsule by mouth every* ALPRAZOLAM 0.5 MG TABLET Take 1 tablet by mouth as nee* COMPOUNDED PRESCRIPTION Miralax 238 gm bottle, (2) 32* LISINOPRIL 20 MG TABLET Take 20 mg by mouth once naman* BUDESONIDE DR - ER 3 MG CAPSU* Take 2 capsules by mouth once* FLUOXETINE 40 MG CAPSULE Take 1 capsule by mouth once * ASPIRIN 81 MG TABLET,DELAYED * Take 1 tablet by mouth once d* NYSTATIN 100,000 UNIT/GRAM TO* Apply 1 application to affect* PROMETHAZINE 25 MG TABLET TAKE 1 TABLET BY MOUTH EVERY * CARVEDILOL 25 MG TABLET Take 1 tablet by mouth twice * ATORVASTATIN 20 MG TABLET Take 1 tablet by mouth daily * ERGOCALCIFEROL (VITAMIN D2) 5* Take 1 capsule by mouth once * IRON, CARBONYL 45 MG TABLET Take 1 tablet by mouth three * AMLODIPINE 10 MG TABLET Take 1 tablet by mouth once d* DILTIAZEM CR 240 MG CAP Take 1 capsule by mouth once * PEN NEEDLE, DIABETIC 31 GAUGE* Use one needle per dose. 4 x * LANCETS Test blood sugar(s) 4- 6 times* BLOOD SUGAR DIAGNOSTIC STRIPS Test blood sugar(s) 4- 6 times* PEN NEEDLE, DIABETIC 29 GAUGE* 1 Each once daily. BLOOD SUGAR DIAGNOSTIC STRIPS Test blood sugar(s) 4 times d* ALBUTEROL (BULK) [facility] [place] [facility] BLOOD-GLUCOSE METER KIT Freestyle LITE Meter Kit - Problem List As Of Date 12/01/2017 Noted Resolved VULVAL ABSCESS [N76.4] INVALID FOR*10/28/2013 Retinopathy due to secondary diabetes mellitus * Proteinuria [R80.9] Renal insufficiency [N28.9] 03/06/2017 Neuropathy [G62.9] INVALID FOR* HTN (hypertension) [I10] INVALID FOR* Anxiety [F41.9] INVALID FOR* More... Diabetes mellitus [E11.9] INVALID FOR* Cardiomyopathy, nonischemic [I42.8] INVALID FOR* Iron deficiency [E61.1] INVALID FOR* Anemia [D64.9] INVALID FOR* Scar condition and fibrosis of skin: Atrophic D*INVALID FOR* Rosacea [L71.9] INVALID FOR* Other acne [L70.8] INVALID FOR* Telangiectasia [I78.1] INVALID FOR* Irritant dermatitis [L24.9] INVALID FOR* Nodulocystic acne [L70.0] INVALID FOR* Dysfunctional uterine bleeding [N93.8] INVALID FOR* Vitamin D deficiency [E55.9] INVALID FOR* Asthma [J45.909] INVALID FOR* Obesity [E66.9] INVALID FOR* CHF (congestive heart failure) (HCC) [I50.9] INVALID FOR* Chronic renal failure, stage 5 (HCC) [N18.5] INVALID FOR* More... Complication of dialysis access insertion (HCC)*INVALID FOR* GABRIEL (obstructive sleep apnea) [G47.33] INVALID FOR* More... Diarrhea, functional [K59.1] INVALID FOR* More... Bloody stools [K92.1] INVALID FOR* More... C. difficile diarrhea [A04.72] INVALID FOR* More... Encounter Status:Closed by CHIP TOLLIVER on 12/01/17 PROGRESS Observed: 11/20/2017 Status: COMPLETED Source: [place] 4:56 PM [facility] [place] REPOSITORY [facility] ID: [id number] Author: Chip (Rn) Sherrill Service: (none) Author Type: Registered Nurse Type: Progress Notes Filed: 11/20/2017 5:20 PM Note Text: TRANSITION CARE MANAGEMENT (TCM) INITIAL CONTACT Provider Action/FYI: PLEASE FILE MEDICATION UPDATES Initial contact with patient post discharge, spoke to patient. Patient identified by name and . SUMMARY: -Pt discharged from [facility] on 11/16. -Follow up appointment on 11/22 with PCP. -Medication review done with patient. -Admitted for: 1. Acute diastolic CHF secondary to ESRD with missed dialysis session 2. Chest pain, elevated troponin 3. Hyperkalemia 4. ESRD 5. Acute on chronic hypoxic respiratory failure, secondary to #1 CONCERNS: Tired No chest pain since D/C BS ranging 130-140's ac and hs Wearing oxygen at 2 L at bedtime, helps dyspnea Has not been wearing CPAP, it was lost at [facility] when she was there for rehab NEW MEDICATIONS: Isosorbide DN [Isordil] 20 mg PO TID #90 tab MED CHANGES: Atorvastatin Calcium 10 mg PO QHS #30 tab (was 20 mg) MEDS HELD/DISCONTINUED: None BRIEF HOSPITAL COURSE: Copied from [facility] [place]: Patient admitted 11/14/17 due to shortness of breath. Patient has end-stage renal disease and was noted to have missed dialysis session. Chest x-ray on admission with prominent bilateral infiltrates. Acute diastolic CHF with acute on chronic hypoxic respiratory failure improved with dialysis. Hyperkalemia also resolved with dialysis. Patient was noted to have elevated troponin with intermittent chest pain. Cardiology consulted. Patient recently had a nuclear stress test June 2017 which was unremarkable. Patient will continue medical management at this time. Her Isordil was increased to 20 mg 3 times daily. Hypertensive crisis resolved with dialysis and increase in Isordil. She will follow with cardiology as outpatient in 6 months. Echocardiogram completed which showed an ejection fraction of 45%, compared to echo 07/19/2017, no appreciable changes noted. Patient had a previous cardiac catheterization in 2012 which showed normal coronary arteries. Patient was started on atorvastatin 10 mg nightly for hyperlipidemia. Patient's other past medical history includes type 2 diabetes mellitus, obesity, GERD, depression, anxiety, anemia of chronic disease, tobacco dependence, history of C. difficile, GABRIEL. Patient has home oxygen available and will continue supplemental oxygen. Encouraged her to continue dialysis schedule as ordered. Primary Care Physician: Ric Mccrary MD [Primary Care Provider] - Please follow up with your Primary Care Physician in: 1 Week Please Follow Up With: Nawaf Valdivia MD When: As scheduled Please Follow Up With: Wm Underwood MD When: 6 Months Chip Tolliver RN CNPTOUTREACH Observed: 11/20/2017 Status: COMPLETED Source: [place] 12:00 AM [facility] REPOSITORY [facility] KOURTNEY REZA ([id number]) 1975 F TRN Date Time Provider Department 11/20/17 CHIP TOLLIVER (RN) MELISSA During your visit today, we recorded the following information about you: Chip Tolliver RN 11/20/2017 5:20 PM Signed TRANSITION CARE MANAGEMENT (TCM) INITIAL CONTACT Provider Action/FYI: PLEASE FILE MEDICATION UPDATES Initial contact with patient post discharge, spoke to patient. Patient identified by name and . SUMMARY: -Pt discharged from [facility] on 11/16. -Follow up appointment on 11/22 with PCP. -Medication review done with patient. -Admitted for: 1. Acute diastolic CHF secondary to ESRD with missed dialysis session 2. Chest pain, elevated troponin 3. Hyperkalemia 4. ESRD 5. Acute on chronic hypoxic respiratory failure, secondary to #1 CONCERNS: Tired No chest pain since D/C BS ranging 130-140's ac and hs Wearing oxygen at 2 L at bedtime, helps dyspnea Has not been wearing CPAP, it was lost at [facility] when she was there for rehab NEW MEDICATIONS: Isosorbide DN [Isordil] 20 mg PO TID #90 tab MED CHANGES: Atorvastatin Calcium 10 mg PO QHS #30 tab (was 20 mg) MEDS HELD/DISCONTINUED: None BRIEF HOSPITAL COURSE: Copied from [facility] [employer]itech: Patient admitted 11/14/17 due to shortness of breath. Patient has end-stage renal disease and was noted to have missed dialysis session. Chest x-ray on admission with prominent bilateral infiltrates. Acute diastolic CHF with acute on chronic hypoxic respiratory failure improved with dialysis. Hyperkalemia also resolved with dialysis. Patient was noted to have elevated troponin with intermittent chest pain. Cardiology consulted. Patient recently had a nuclear stress test June 2017 which was unremarkable. Patient will continue medical management at this time. Her Isordil was increased to 20 mg 3 times daily. Hypertensive crisis resolved with dialysis and increase in Isordil. She will follow with cardiology as outpatient in 6 months. Echocardiogram completed which showed an ejection fraction of 45%, compared to echo 07/19/2017, no appreciable changes noted. Patient had a previous cardiac catheterization in 2012 which showed normal coronary arteries. Patient was started on atorvastatin 10 mg nightly for hyperlipidemia. Patient's other past medical history includes type 2 diabetes mellitus, obesity, GERD, depression, anxiety, anemia of chronic disease, tobacco dependence, history of C. difficile, GABRIEL. Patient has home oxygen available and will continue supplemental oxygen. Encouraged her to continue dialysis schedule as ordered. Primary Care Physician: Ric Mccrary MD [Primary Care Provider] - Please follow up with your Primary Care Physician in: 1 Week Please Follow Up With: Nawaf Valdivia MD When: As scheduled Please Follow Up With: Wm Underwood MD When: 6 Months Chip Tolliver RN Allergies As of Date: 11/20/2017 Noted Allergy Reaction LATEX 01/20/2006 2 - Rash NSAIDS (NON-STEROIDAL ANTI-INFLAM*05/12/2017 15 - Contraindication- Medical [facility]* PERCOCET (OXYCODONE-ACETAMINOPHEN)10/28/2013 1 - Mental Status Change REGLAN (METOCLOPRAMIDE) 07/03/2013 11 - Vomiting Date Reviewed: 11/02/2017 Reviewed by: Trinidad Linton LPN - Fully Assessed Reason for Visit: [facility] [3610] Primary Visit Diagnosis:Hyperlipidemia, mixed [E78.2] Other Visit Diagnoses:Type 2 diabetes mellitus with chronic kidney disease on chronic dialysis, with long-term current use of insulin (HCC) [E11.22, N18.6, Z99.2, Z79.4] Chest pain, unspecified type [R07.9] Order(s):insulin aspart U-100 (NOVOLOG FLEXPEN U-100 INSULIN) 100 unit/mL inpn8 units three times a day with mealsDisp: 5 PenRfl: 5 insulin glargine (LANTUS SOLOSTAR U-100 INSULIN) 100 unit/mL (3 mL) inpnInject 5 Units subcutaneously daily at bedtime.Disp: 5 PenRfl: 5 atorvastatin (LIPITOR) 10 mg tabletTake 1 tablet by mouth once daily.Disp: Rfl: isosorbide dinitrate (ISORDIL, SORBITRATE) 20 mg tabletTake 1 tablet by mouth three times daily.Disp: Rfl: Prescriptions as of 11/20/2017 Sig: OSTOMY SUPPLIES 4 X 4 WAFER Holister wafer Reorder #[id number] OSTOMY SUPPLIES Ostomy bag Holister brand #18* ALPRAZOLAM 0.5 MG TABLET Take 1 tablet by mouth as nee* COMPOUNDED PRESCRIPTION Miralax 238 gm bottle, (2) 32* LISINOPRIL 20 MG TABLET Take 20 mg by mouth once naman* BUDESONIDE DR - ER 3 MG CAPSU* Take 2 capsules by mouth once* FLUOXETINE 40 MG CAPSULE Take 1 capsule by mouth once * ASPIRIN 81 MG TABLET,DELAYED * Take 1 tablet by mouth once d* NYSTATIN 100,000 UNIT/GRAM TO* Apply 1 application to affect* PROMETHAZINE 25 MG TABLET TAKE 1 TABLET BY MOUTH EVERY * CARVEDILOL 25 MG TABLET Take 1 tablet by mouth twice * ERGOCALCIFEROL (VITAMIN D2) 5* Take 1 capsule by mouth once * IRON, CARBONYL 45 MG TABLET Take 1 tablet by mouth three * AMLODIPINE 10 MG TABLET Take 1 tablet by mouth once d* DILTIAZEM CR 240 MG CAP Take 1 capsule by mouth once * PEN NEEDLE, DIABETIC 31 GAUGE* Use one needle per dose. 4 x * LANCETS Test blood sugar(s) 4- 6 times* BLOOD SUGAR DIAGNOSTIC STRIPS Test blood sugar(s) 4- 6 times* PEN NEEDLE, DIABETIC 29 GAUGE* 1 Each once daily. BLOOD SUGAR DIAGNOSTIC STRIPS Test blood sugar(s) 4 times d* BLOOD-GLUCOSE METER KIT Freestyle LITE Meter Kit - INSULIN ASPART U-100 100 UNI* 8 units three times a day wit* INSULIN GLARGINE (U-100) 100 * Inject 5 Units subcutaneously* ATORVASTATIN 10 MG TABLET Take 1 tablet by mouth once d* ISOSORBIDE DINITRATE 20 MG TA* Take 1 tablet by mouth three * VANCOMYCIN 125 MG CAPSULE Take 1 capsule by mouth every* ATORVASTATIN 20 MG TABLET Take 1 tablet by mouth daily * ALBUTEROL (BULK) [facility] [place] [facility] Problem List As Of Date 11/20/2017 Noted Resolved VULVAL ABSCESS [N76.4] INVALID FOR*10/28/2013 Retinopathy due to secondary diabetes mellitus * Proteinuria [R80.9] Renal insufficiency [N28.9] 03/06/2017 Neuropathy [G62.9] INVALID FOR* HTN (hypertension) [I10] INVALID FOR* Anxiety [F41.9] INVALID FOR* More... Diabetes mellitus [E11.9] INVALID FOR* Cardiomyopathy, nonischemic [I42.8] INVALID FOR* Iron deficiency [E61.1] INVALID FOR* Anemia [D64.9] INVALID FOR* Scar condition and fibrosis of skin: Atrophic D*INVALID FOR* Rosacea [L71.9] INVALID FOR* Other acne [L70.8] INVALID FOR* Telangiectasia [I78.1] INVALID FOR* Irritant dermatitis [L24.9] INVALID FOR* Nodulocystic acne [L70.0] INVALID FOR* Dysfunctional uterine bleeding [N93.8] INVALID FOR* Vitamin D deficiency [E55.9] INVALID FOR* Asthma [J45.909] INVALID FOR* Obesity [E66.9] INVALID FOR* CHF (congestive heart failure) (HCC) [I50.9] INVALID FOR* Chronic renal failure, stage 5 (HCC) [N18.5] INVALID FOR* More... Complication of dialysis access insertion (HCC)*INVALID FOR* GABRIEL (obstructive sleep apnea) [G47.33] INVALID FOR* More... Diarrhea, functional [K59.1] INVALID FOR* More... Bloody stools [K92.1] INVALID FOR* More... C. difficile diarrhea [A04.72] INVALID FOR* More... Prescriptions ordered this encounter Disp Refills Start End INSULIN ASPART U-100 100 UNIT/ML COPELAND* 5 Pen 5 11/20/2017 Class: Med Update Si units three times a day with meals INSULIN GLARGINE (U-100) 100 UNIT/ML* 5 Pen 5 11/20/2017 Class: Med Update Route: SUBCUTANEOUS Sig: Inject 5 Units subcutaneously daily at bedtime. ATORVASTATIN 10 MG TABLET 11/20/2017 Class: Med Update Route: ORAL Sig: Take 1 tablet by mouth once daily. ISOSORBIDE DINITRATE 20 MG TABLET 11/20/2017 Class: Med Update Route: ORAL Sig: Take 1 tablet by mouth three times daily. Medications Discontinued During This Encounter insulin aspart (NOVOLOG FLEXPEN) 100* 5 Pen 5 06/29/2017 11/20/2017 Si units three times a day with meals Disc: Reason for discontinue is not on file. insulin glargine (LANTUS SOLOSTAR) 1* 5 Pen 5 06/29/2017 11/20/2017 Route: SUBCUTANEOUS Sig: Inject 4 Units subcutaneously daily at bedtime. Disc: Reason for discontinue is not on file. Encounter Status:Closed by SHERRILLCHIP on 11/21/17 12 LEAD ELECTROCARDIOGRAM Observed: 11/17/2017 Status: F Source: [place] 1:27 PM [facility] REPOSITORY [facility] Cardiovascular Services [address] [place] [address] 12 Lead EKG 11/14/17 2257 MR#: [id number] Acct: [id number] Name: KOURTNEY REZA Rep #: [id number] : 1975 41 From: Robert Tompkins MD Attending Dr: Anthony Hill MD Status: DIS IN Ordering Dr: Alireza Kulkarni MD Date: 11/14/17 Location: [facility] Sex: F C Admitted: 11/14/17 Test Reason : ADM EKG Blood Pressure : / mmHG Vent. Rate : 095 BPM Atrial Rate : 095 BPM P-R Int : 146 ms QRS Dur : 088 ms QT Int : 364 ms P-R-T Axes : 034 049 115 degrees QTc Int : 457 ms Normal sinus rhythm ST AND T wave abnormality, consider lateral ischemia Abnormal ECG When compared with ECG of 05-NOV-2017 08:48, T wave inversion now evident in Lateral leads Confirmed by ROBERT TOMPKINS MD ([id number]), web editor SHANIA SOLITARIO ([id number]) on 11/17/2017 1:26:48 PM Referred By: SHAD Confirmed By:ROBERT TOMPKINS MD 11/17/17 1326 Date Robert Tompkins MD CC: Anthony Hill MD; Alireza Kulkarni MD; Ric Mccrary MD Signed 12 LEAD ELECTROCARDIOGRAM Observed: 11/17/2017 Status: F Source: [place] 1:25 PM [facility] REPOSITORY [facility] Cardiovascular Services [address] [place] [address] 12 Lead EKG 11/15/17 1713 MR#: [id number] Acct: [id number] Name: KOURTNEY REZA Rep #: [id number] : 1975 41 From: Robert Tompkins MD Attending Dr: Anthony Hill MD Status: DIS IN Ordering Dr: Alireza Kulkarni MD Date: 11/15/17 Location: [facility] Sex: F C Admitted: 11/14/17 Test Reason : ARRYTH Blood Pressure : / mmHG Vent. Rate : 086 BPM Atrial Rate : 086 BPM P-R Int : 136 ms QRS Dur : 084 ms QT Int : 402 ms P-R-T Axes : 030 051 122 degrees QTc Int : 481 ms Normal sinus rhythm Nonspecific T wave abnormality Prolonged QT Abnormal ECG When compared with ECG of 15-NOV-2017 05:38, MANUAL COMPARISON REQUIRED, DATA IS UNCONFIRMED Confirmed by ROBERT TOMPKINS MD ([id number]), web editor SHANIA SOLITARIO ([id number]) on 11/17/2017 1:25:09 PM Referred By: Confirmed By:ROBERT TOMPKINS MD 11/17/17 1325 Date Robert Tompkins MD CC: Anthony Hill MD; Alireza Kulkarni MD; Ric Mccrary MD Signed 12 LEAD ELECTROCARDIOGRAM Observed: 11/17/2017 Status: F Source: [place] 1:25 PM [facility] REPOSITORY [facility] Cardiovascular Services [address] [place] [address] 12 Lead EKG 11/15/17 0538 MR#: [id number] Acct: [id number] Name: KOURTNEY REZA Rep #: [id number] : 1975 41 From: Robert Tompkins MD Attending Dr: Anthony Hill MD Status: DIS IN Ordering Dr: Anthony Hill MD Date: 11/15/17 Location: [facility] Sex: F C Admitted: 11/14/17 Test Reason : RHYTHM CHANGE Blood Pressure : / mmHG Vent. Rate : 099 BPM Atrial Rate : 099 BPM P-R Int : 136 ms QRS Dur : 086 ms QT Int : 368 ms P-R-T Axes : 055 053 180 degrees QTc Int : 472 ms Normal sinus rhythm ST AND T wave abnormality, consider inferolateral ischemia Prolonged QT Abnormal ECG When compared with ECG of 14-NOV-2017 22:57, MANUAL COMPARISON REQUIRED, DATA IS UNCONFIRMED Confirmed by ROBERT TOMPKINS MD ([id number]), web editor SHANIA SOLITARIO ([id number]) on 11/17/2017 1:25:42 PM Referred By: SHAD Confirmed By:ROBERT TOMPKINS MD 11/17/17 1325 Date Robert Tompkins MD CC: Anthony Hill MD; Ric Mccrary MD Signed BEDSIDE GLUCOSE Collected: 11/16/2017 Status: F Source: [place] 11:16 AM [facility] REPOSITORY TYPE CODE TESTS RESULT OUT OF REFERENCE UNITS RANGE LAB L501.080 70-110 mg/dL High BEDSIDE GLU 127 Result Comment: MANAGEMENT OF PATIENT CARE PER NURSING PROTOCOL Performed By: #### L501.080 #### [facility] Point of Care [address] [place] [address] DISCHARGE SUMMARY Observed: 11/16/2017 Status: F Source: [place] 11:08 AM [facility] REPOSITORY [facility] Medical Records Department [address] [place] [address] Discharge Summary 11/16/17 0913 MR#: [id number] Acct: [id number] Name: KOURTNEY REZA Rep #: [id number] : 1975 41 From: Fiorella Gan STRAWHAT SIZER-C PCP: Ric Mccrary MD Status: ADM IN [id number] <Fiorella Gan - Last Filed: 11/16/17 09:41> Discharge Date and Diagnosis Date of Admission: 11/14/17 Date of Discharge: 11/16/17 - Primary Discharge Diagnosis Active and Suspected Problems 1. Acute diastolic CHF secondary to ESRD with missed dialysis session 2. Chest pain, elevated troponin 3. Hyperkalemia 4. ESRD 5. Acute on chronic hypoxic respiratory failure, secondary to #1 - Secondary Discharge Diagnosis Chronic Problems ESRD (end stage renal disease) on dialysis (Chronic) Decubitus ulcer, stage III (Chronic) CAD (coronary artery disease) (Chronic) Anemia, chronic disease (Chronic) Pilonidal cyst with abscess (Chronic) GABRIEL (obstructive sleep apnea) (Chronic) ESRD on dialysis (Chronic) Depression (Chronic) Anxiety (Chronic) HTN (hypertension) (Chronic) Nonischemic cardiomyopathy (Chronic) With ejection fraction 45 - 50%; with angiographically normal coronary arteries 05/2013; follows up with Dr. Underwood S/P repair of PDA (patent ductus arteriosus) (Chronic) At young age Diabetes mellitus type 1 (Chronic) Hyperlipidemia (Chronic) Obesity (BMI 30.0-34.9) (Chronic) Gastroparesis (Chronic) Hospital Course and Treatment Imaging Results: Diagnostic Data Chest X-Ray 11/14/17 22:22 IMPRESSION: Worsening of prominent bilateral diffuse infiltrates. Electronically Signed: James Kahn MD at 23:34 EDT , Service support , Consultations 11/15/17 06:58 Consult: Onc/Wound/grease rack worker Routine Comment: Reason for Consult:: Cyst to coccyx, s/p surgery, pt see outpt wound center Dr. Underwood- Cardiology Dr. Valdivia- Nephrology Operations: None Procedures: 2-D Echocardiogram, Dialysis Summary of Care Provided: The patient is a 41 year old F admitted 11/14/17 due to shortness of breath. Patient has end-stage renal disease and was noted to have missed dialysis session. Chest x-ray on admission with prominent bilateral infiltrates. Acute diastolic CHF with acute on chronic hypoxic respiratory failure improved with dialysis. Hyperkalemia also resolved with dialysis. Patient was noted to have elevated troponin with intermittent chest pain. Cardiology consulted. Patient recently had a nuclear stress test June 2017 which was unremarkable. Patient will continue medical management at this time. Her Isordil was increased to 20 mg 3 times daily. Hypertensive crisis resolved with dialysis and increase in Isordil. She will follow with cardiology as outpatient in 6 months. Echocardiogram completed which showed an ejection fraction of 45%, compared to echo 07/19/2017, no appreciable changes noted. Patient had a previous cardiac catheterization in 2012 which showed normal coronary arteries. Patient was started on atorvastatin 10 mg nightly for hyperlipidemia. Patient's other past medical history includes type 2 diabetes mellitus, obesity, GERD, depression, anxiety, anemia of chronic disease, tobacco dependence, history of C. difficile, GABRIEL. Patient has home oxygen available and will continue supplemental oxygen. Encouraged her to continue dialysis schedule as ordered. General: Alert, Oriented x3, Cooperative HEENT: Atraumatic, PERRLA, EOMI, Normocephalic Neck: Supple, No JVD, Negative Carotid Bruits Lungs: Normal air movement, clear to auscultation Cardiovascular: Regular rate, No murmurs Abdomen: Bowel Sounds Present, Soft, Non Tender Extremities: No edema, Capillary Refill Less than 3 Seconds Skin: No rashes, No breakdown Musculoskeletal: No Tenderness to Palpation of Joints or Extremities Neurological: Cranial nerves II-XII grossly intact Psych/Mental Status: Normal Affect, Appropriate Patient seen and examined prior to discharge. Physical assessment as noted above. Patient is stable for discharge with further follow-up with primary care physician, nephrology and cardiology. This patient was seen by SATNAM Mcgraw under the supervision of Dr. Hill. Discharge Diet: Low fat/ Low Cholesterol, Renal Diet Discharge Activity: Return to Normal Activity Call your doctor if you observe: Shortness of breath, Dizziness, Fainting spells, Chest pain Home Medications: Medications to take at Discharge Diltiazem HCl [Tiazac] 240 mg PO DAILY 07/10/15 Aspirin [Aspirin, Baby] 81 mg PO DAILY@0800 01/26/16 Calcium Acetate [Phoslo Gel Cap] 667 mg PO TIDCM 01/26/16 Ergocalciferol [Vitamin D] 50,000 unit PO FR 01/26/16 Insulin Aspart [Novolog Flexpen] 8 units SC TIDCM 01/26/16 Insulin Glargine,Hum.rec.anlog [Lantus] 5 unit SQ QHS 01/09/17 proMETHazine tablet [Phenergan tablet] 25 mg PO Q6H PRN PRN #10 tablet 03/06/17 Lisinopril 20 mg PO DAILY 03/29/17 Omeprazole Magnesium [Prilosec Otc] 20 mg PO DAILY 03/29/17 Sodium Bicarbonate 650 mg PO TUTHSA 03/29/17 Acetaminophen [Tylenol Tablet] 650 mg PO Q6H PRN PRN tablet 03/31/17 Carvedilol [Coreg (Beta Lewis)] 25 mg PO BID 06/17/17 Fluoxetine HCl 40 mg PO DAILY 09/02/17 hydrALAZINE [Apresoline] 25 mg PO TID 11/05/17 Hydrocodone/Acetaminophen [Hydrocodone-Acetamin 5-325 mg] 1 tab PO Q6H PRN 11/14/17 Atorvastatin Calcium 10 mg PO QHS #30 tab 11/16/17 Isosorbide DN [Isordil] 20 mg PO TID #90 tab 11/16/17 Following Prescrptions Were Given to Patient: Atorvastatin Calcium 10 mg PO QHS #30 tab Isosorbide DN [Isordil] 20 mg PO TID #90 tab Primary Care Physician: Ric Mccrary MD [Primary Care Provider] - Please follow up with your Primary Care Physician in: 1 Week Please Follow Up With: Nawaf Valdivia MD When: As scheduled Please Follow Up With: Wm Underwood MD When: 6 Months Disposition: Home Minutes spent on discharge:: 35 Patient Condition:: Stable Medical Necessity - Tobacco Use Smoking Status: Current every day smoker Meaningful Use Info Meaningful Use Diagnoses (Choose all that apply): CHF - CHF CAM/ARB ordered at discharge?: Yes Documented LVEF (%): 45 <Anthony Hill - Last Filed: 11/16/17 11:07> Discharge Date and Diagnosis - Secondary Discharge Diagnosis Chronic Problems ESRD (end stage renal disease) on dialysis (Chronic) Decubitus ulcer, stage III (Chronic) CAD (coronary artery disease) (Chronic) Anemia, chronic disease (Chronic) Pilonidal cyst with abscess (Chronic) GABRIEL (obstructive sleep apnea) (Chronic) ESRD on dialysis (Chronic) Depression (Chronic) Anxiety (Chronic) HTN (hypertension) (Chronic) Nonischemic cardiomyopathy (Chronic) With ejection fraction 45 - 50%; with angiographically normal coronary arteries 05/2013; follows up with Dr. 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 I have independently interviewed and examined the patient and reviewed pertinent historical, laboratory, and other data. Please refer to SATNAM Mcgraw note for details of this patient's presentation, findings, and recommendations. I have reviewed SATNAM Mcgraw note and concur with documented findings. In brief, patient is a 41-year-old lady with significant past medical history including CAD with previous stent placement, diabetes mellitus type 2 with complications including end-stage renal disease on dialysis, hypertension, who presented with shortness of breath after missing dialysis. Patient also did experience some chest pain with slightly elevated troponin. Physical Examination: GENERAL: cooperative HEENT: Clear conjunctiva, NECK; supple, normal thyroid, CHEST: Diminished to auscultation bilaterally, HEART: Regular S1 S2, ABDOMEN: soft, non-tender, normoactive bowel sounds, RECTAL: deferred EXTREMITIES: No clubbing, no cyanosis. WEBSITE PROJECT MANAGER: Awake, no lateralizing signs. SKIN: No Rash Assessment: 1. Acute diastolic congestive heart failure following admission of dialysis session 2. End-stage renal disease on hemodialysis 5. Diabetes mellitus type 2 4. Hypertensive crisis 5. Chest Pain with elevated troponin 6. Chronic hypoxic respiratory failure secondary on baseline home O2 7. Obesity with BMI of 31.2 8. Nephrotic syndrome secondary to diabetic nephropathy 9. Dyslipidemia: 10. GERD patient is on PPI 11. Depression with anxiety 12. Anemia secondary to anemia of end-stage renal disease 13. Tobacco dependence 14. Diagnosis of C. difficile colitis beginning of the month 15. Recent admission for suspected gram-negative pneumonia 16. DVT prophylaxis heparin Hospital course: As elicited above by Fiorella Gan Discharge 45 minutes Code Visit Inpatient E AND M: [id number] Disch Hosp 11/16/17 0941 <Electronically signed by Fiorella HAY> Date Fiorella HAY 11/16/17 1108<Electronically signed by Anthony Hill MD> Cosigner Signature (if applicable): Date Anthony Hill MD CC: STRAWHAT SIZER-Clara Gan; Anthony Hill MD; Ric Mccrary MD Signed DISCHARGE INSTRUCTION Observed: 11/16/2017 Status: F Source: CI[place] 9:13 AM [facility] REPOSITORY [facility] Medical Records Department [address] [place] [address] Instructions for Home/Discharge Instructions 11/16/17 0907 MR#: [id number] Acct: [id number] Name: KOURTNEY REZA Rep #: [id number] : 1975 41 From: Fiorella HAY PCP: Ric Mccrary MD Status: ADM IN - Discharge Diagnoses Current Active Problems: Current Active and Chronic Problems Pulmonary edema (Acute) Hyperkalemia (Acute) Atypical chest pain (Acute) Acute hypoxic respiratory failure (Acute) Pulmonary edema (Acute) You will use the following diet at home:: Cardiac, Renal (restricted protein/sodium) Discharge Activity: Return to Normal Activity Call your doctor if you observe: Shortness of breath, Dizziness, Fainting spells, Chest pain Allergies/Adverse Reactions: Allergies latex Allergy (Verified 11/05/17 08:34) Rash levofloxacin [From Levaquin] Adverse Reaction (Verified 11/05/17 08:34) PT CAN'T REMEMBER PT CAN'T REMEMBER metoclopramide HCl [From Reglan] Adverse Reaction (Verified 11/05/17 08:34) Nausea NSAIDS (Non-Steroidal Anti-Inflamma Adverse Reaction (Verified 11/05/17 08:34) kidney function oxycodone HCl [From Percocet] Adverse Reaction (Verified 11/05/17 08:34) HALLUCINATIONS Medications to take at Discharge Diltiazem HCl [Tiazac] 240 mg PO DAILY 07/10/15 Aspirin [Aspirin, Baby] 81 mg PO DAILY@0800 01/26/16 Calcium Acetate [Phoslo Gel Cap] 667 mg PO TIDCM 01/26/16 Ergocalciferol [Vitamin D] 50,000 unit PO FR 01/26/16 Insulin Aspart [Novolog Flexpen] 8 units SC TIDCM 01/26/16 Insulin Glargine,Hum.rec.anlog [Lantus] 5 unit SQ QHS 01/09/17 proMETHazine tablet [Phenergan tablet] 25 mg PO Q6H PRN PRN #10 tablet 03/06/17 Lisinopril 20 mg PO DAILY 03/29/17 Omeprazole Magnesium [Prilosec Otc] 20 mg PO DAILY 03/29/17 Sodium Bicarbonate 650 mg PO TUTHSA 03/29/17 Acetaminophen [Tylenol Tablet] 650 mg PO Q6H PRN PRN tablet 03/31/17 Carvedilol [Coreg (Beta Lewis)] 25 mg PO BID 06/17/17 Fluoxetine HCl 40 mg PO DAILY 09/02/17 hydrALAZINE [Apresoline] 25 mg PO TID 11/05/17 Hydrocodone/Acetaminophen [Hydrocodone-Acetamin 5-325 mg] 1 tab PO Q6H PRN 11/14/17 Atorvastatin Calcium 10 mg PO QHS #30 tab 11/16/17 Isosorbide DN [Isordil] 20 mg PO TID #90 tab 11/16/17 The following prescriptions were given: Atorvastatin Calcium 10 mg PO QHS #30 tab Isosorbide DN [Isordil] 20 mg PO TID #90 tab Primary Care Physician: Ric Mccrary MD [Primary Care Provider] - Please follow up with your Primary Care Physician in: 1 Week Please Follow Up With: Nawaf Valdivia MD When: As scheduled Please Follow Up With: Wm Underwood MD When: 6 Months Proposed Discharge Date: 11/16/17 11/16/17912 <Electronically signed by Fiorella HAY> Date Fiorella HAY CC: Nawaf Valdivia MD; Wm Underwood MD; Ric Mccrary MD BEDSIDE GLUCOSE Collected: 11/16/2017 Status: F Source: CI[place] 6:50 AM [facility] REPOSITORY TYPE CODE TESTS RESULT OUT OF RANGE REFERENCE UNITS LAB L501.080 70-110 mg/dL Normal BEDSIDE GLU 95 Result Comment: MANAGEMENT OF PATIENT CARE PER NURSING PROTOCOL Performed By: #### L501.080 #### [facility] Point of Care [address] [place] [address] BEDSIDE GLUCOSE Collected: 11/15/2017 Status: F Source: [place] 10:36 PM [facility] REPOSITORY TYPE CODE TESTS RESULT OUT OF REFERENCE UNITS RANGE LAB L501.080 70-110 mg/dL High BEDSIDE GLU 187 Result Comment: MANAGEMENT OF PATIENT CARE PER NURSING PROTOCOL Performed By: #### L501.080 #### [facility] Point of Care [address] [place] [address] HISTORY AND PHYSICAL Observed: 11/15/2017 Status: F Source: [place] EXAM 9:30 PM [facility] REPOSITORY [facility] Medical Records Department [address] [place] [address] History and Physical 11/14/17 2219 MR#: [id number] Acct: [id number] Name: KOURTNEY REZA Rep #: [id number] : 1975 41 From: Alireza Kulkarni MD PCP: Ric Mccrary MD Status: ADM IN Location: [place] [address] ADDENDUM by Alireza Kulkarni MD on 11/15/17 at 2129 Code Visit Back note from today mine technician at 6:30 am Nurse called me with slight elevation in troponin. Patient does not have chest pain. There are non specific Nonspecific ST-T changes in anterolateral leads. Follow further trend of serial cardiac enzymes and consult hobbies and crafts sales representative Dr. Underwood if needed. Patient felt better after dialysis. Shortness of breath improved. Correction: She had echo in June 2015. 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 Underwood (18) S/P repair of PDA (patent ductus arteriosus) Status: Chronic Comment: At young age (17) Diabetes mellitus type 1 Status: Chronic Qualifiers: (20) Hyperlipidemia Status: Chronic Qualifiers: (21) Obesity (BMI 30.0-34.9) Status: Chronic (22) Gastroparesis Status: Chronic History of Present Illness Date of Admission: 11/14/17 Chief Complaint: Shortness of breath presents today The patient is a 41 year old F with multiple comorbidities is being directly admitted from [facility] ER for acute onset of shortness of breath, tachypnea most probably secondary to missed hemodialysis today along with hyperkalemia. As per the ER physician, Dr Farfan, patient is very tachypneic respiratory rate 27, hypoxic and was put on BiPAP 24/8 at 50% FiO2 for short time but patient could not tolerate it. K6.6, bicarb 18, and n-BNP 20,645. EKG reviewed and shows normal sinus rhythm with nonspecific ST- T changes at 96 bpm. QTc 460 ms. There is no available chest x-ray to review but as per the ER physician, it shows pulmonary edema. On the floor, patient also said she had a chest pain, localized midsternal prior to the arrival to ER there and has resolved. Patient had a stress test in June 2017 which showed normal pharmacological myocardial perfusion imaging. EF noted 44%. In June 2017 she had echo which showed normal LV size with moderate concentric LVH. EF 45% with mild global hypokinesis. Normal RV size and systolic function. Normal right and left atria. RVSP 39 mmHg with mild TR. [] Past Medical History Past Medical History (Chronic Problems): Chronic Problems Decubitus ulcer, stage III (Chronic) CAD (coronary artery disease) (Chronic) Anemia, chronic disease (Chronic) Pilonidal cyst with abscess (Chronic) GABRIEL (obstructive sleep apnea) (Chronic) ESRD on dialysis (Chronic) Depression (Chronic) Anxiety (Chronic) HTN (hypertension) (Chronic) Nonischemic cardiomyopathy (Chronic) With ejection fraction 45 - 50%; with angiographically normal coronary arteries 05/2013; follows up with Dr. Underwood S/P repair of PDA (patent ductus arteriosus) (Chronic) At young age Diabetes mellitus type 1 (Chronic) Hyperlipidemia (Chronic) Obesity (BMI 30.0-34.9) (Chronic) Gastroparesis (Chronic) Allergies latex Allergy (Verified 11/05/17 08:34) Rash levofloxacin [From Levaquin] Adverse Reaction (Verified 11/05/17 08:34) PT CAN'T REMEMBER PT CAN'T REMEMBER metoclopramide HCl [From Reglan] Adverse Reaction (Verified 11/05/17 08:34) Nausea NSAIDS (Non-Steroidal Anti-Inflamma Adverse Reaction (Verified 11/05/17 08:34) kidney function oxycodone HCl [From Percocet] Adverse Reaction (Verified 11/05/17 08:34) HALLUCINATIONS Home Medications: Ambulatory Orders Medication Instructions Recorded Diltiazem HCl [Tiazac] 240 mg PO DAILY 07/10/15 Aspirin [Aspirin, Baby] 81 mg PO DAILY@0800 01/26/16 Calcium Acetate [Phoslo Gel Cap] 667 mg PO TIDCM 01/26/16 Surgical History: appendectomy, hysterectomy - and BSO, - - c-sections, L breast I+D for abscess, fistula placement LUE, L ankle surgery, appendectomy, PDA repair. Excision pilonidal cyst ulcer about 4 years ago. Smoking Status: Current every day smoker - *Family History Maternal History Items: Cancer, COPD, Diabetes, Hypertension, Renal Disease, Stroke Paternal History Items: Diabetes Sibling History Items: Cancer, Diabetes Review of Systems Constitutional: Reports: Fever - About 2 3 days ago. In ER noted to be afebrile. Denies: Chills, Weight Change HEENT: Denies: Head Aches, Sinus Congestion, Sinus Drainage Cardiovascular: Reports: Chest Pain. Denies: Palpitations Respiratory: Reports: Shortness of breath at rest, Shortness of breath upon exertion. Denies: Cough, Sputum production Gastrointestinal: Reports: Nausea, Vomiting - Not able to keep food down. Probably has diagnosis of esophageal spasm, - - Diverting colostomy. Denies: Abdominal Pain Genitourinary: Denies: Dysuria Musculoskeletal: Denies: Joint Pain, Joint Tenderness Skin: Denies: Rash, Wounds Neurological: Denies: Numbness, Tingling, Focal weakness Psychiatric: Denies: Anxiety, Depression, Homicidal Ideations, Suicidal Ideations Hematologic/ Lymphatic: Denies: Easy Bruising, Easy Bleeding VTE Information - Inpt Only VTE Present on Admission: No VTE Mechan Device Prophylaxis: SCD's VTE Pharm Prophylaxis ordered?: Yes Patient Problems: Active and Suspected Problems Pulmonary edema (Acute) Hyperkalemia (Acute) Atypical chest pain (Acute) Acute hypoxic respiratory failure (Acute) - Physical Exam General: Alert, Oriented x3, Cooperative HEENT: Atraumatic, PERRLA, EOMI, Normocephalic Oral: Dry Mucosa Neck: Supple, No JVD, Negative Carotid Bruits Lungs: Diminished, Rales, Rhonchi, Short of Breath, Tachypneic Cardiovascular: Regular rate, Regular Rhythm, Normal S1, Normal S2, No murmurs Abdomen: Bowel Sounds Present, Soft, Non Tender, Non-Distended, - - Left upper quadrant colostomy. Had semi-formed stool with mucus today Extremities: No edema, Capillary Refill Less than 3 Seconds Skin: No rashes, No breakdown Musculoskeletal: No Tenderness to Palpation of Joints or Extremities, Muscle Wasting Neurological: Cranial nerves II-XII grossly intact Psych/Mental Status: Normal Affect, Appropriate Vital Signs Temp Pulse Resp BP Pulse Ox 98.6 F 96 36 H 166/86 H 92 11/14/17 22:11 11/14/17 22:11 11/14/17 22:11 11/14/17 22:11 11/14/17 22:11 Oxygen Delivery Method Venturi Mask Weight: 199 lb 8.293 oz Body Mass Index (BMI) 32.2 Finger Stick Blood Glucose 118 Assessment/Plan Active and Suspected Problems Pulmonary edema (Acute) Hyperkalemia (Acute) Atypical chest pain (Acute) Acute hypoxic respiratory failure (Acute) he patient is a 41 year old F with multiple comorbidities is being directly admitted from [facility] ER for acute onset of shortness of breath, tachypnea most probably secondary to missed hemodialysis today along with hyperkalemia. As per the ER physician, Dr Farfan, patient is very tachypneic respiratory rate 27, hypoxic and was put on BiPAP 24/8 at 50% FiO2 for short time but patient could not tolerate it. K6.6, bicarb 18, and n-BNP 20,645. EKG reviewed and shows normal sinus rhythm with nonspecific ST- T changes at 96 bpm. QTc 460 ms. There is no available chest x-ray to review but as per the ER physician, it shows pulmonary edema. On the floor, patient also said she had a chest pain, localized midsternal prior to the arrival to ER there and has resolved. Patient had a stress test in June 2017 which showed normal pharmacological myocardial perfusion imaging. EF noted 44%. In June 2017 she had echo which showed normal LV size with moderate concentric LVH. EF 45% with mild global hypokinesis. Normal RV size and systolic function. Normal right and left atria. RVSP 39 mmHg with mild TR. 1. Acute hypoxic respiratory failure most probably secondary to pulmonary edema: Patient is being admitted in PCU. Chest x-ray portable stat ordered. IV Lasix 40 mg to repeat if not get better in 30 minutes. BiPAP, 50% FiO2 18/8. 2. Pulmonary edema most probably due to missed hemodialysis: Discussed with the hot die picker Dr. Eller and he advised dialysis. Serial cardiac enzymes. 3. Acute hyperkalemia secondary to missed hemodialysis with ESRD on hemodialysis: Urgent hemodialysis. BMP stat ordered. No EKG changes of hyperkalemia. Patient had 30 g Kayexalate and cocktail for hyperkalemia in ER there. 4 Atypical chest pain (resolved) most probably secondary to pulmonary edema: Serial cardiac enzymes. Patient had recent June 2017 stress and echo as mentioned above. Nitrate ointment 1% ordered now and then as needed every 6 hourly. 5 Hypertensive urgency: As per ER physician and ER note, she had hypertensive emergency mentioned but not able to see blood pressure recording in the ER documents. On the floor, 166/56. Home medication resumed. 6. Diabetes mellitus type 2: On Accu-Chek before meals and at bedtime and cover with NovoLog sliding scale. Levemir 10 units subcu twice daily. 7 intractable nausea and vomiting most probably secondary to gastroparesis: Phenergan and Zofran as needed. On PPI. Patient is allergic to Reglan. Other comorbidities occluded recent diagnosis of right upper lobe pneumonia for which she was admitted a week ago and completed antibiotic of Omnicef, coronary artery disease, anemia of chronic disease, pilonidal sinus with sepsis status post wound debridement, diverting colostomy, anxiety and depression, obesity and and dyslipidemia: Home medication reconciliation done. Multiple comorbidities and recurrent admission complicates the present care. This note was generated with [employer] software. Every effort was made to ensure accuracy, however computerized xerox machine assembler mistakes may persist. Code Visit Inpatient E AND M: 72170 Subs Hosp L3 11/14/17 0284 <Electronically signed by Alireza Kulkarni MD> Date Alireza Kulkarni MD Cosigner Signature: Date (if applicable) CC: Alireza Kulkarni MD; Ric Mccrary MD Signed BEDSIDE GLUCOSE Collected: 11/15/2017 Status: F Source: [place] 4:32 PM [facility] REPOSITORY TYPE CODE TESTS RESULT OUT OF REFERENCE UNITS RANGE LAB L501.080 70-110 mg/dL High BEDSIDE GLU 190 Result Comment: MANAGEMENT OF PATIENT CARE PER NURSING PROTOCOL Performed By: #### L501.080 #### [facility] Point of Care [facility] [address] [place], [place] [id number] TROPONIN-I Collected: 11/15/2017 Status: F Source: [place] 2:20 PM [facility] REPOSITORY Order Comment: 'TROP' Serial specimen #1, #2, #3, or #4: 4 TYPE CODE TESTS RESULT OUT OF RANGE REFERENCE UNITS LAB L501.4010 <0.06 ng/mL High 0.07 TROPONIN-I Result Comment: TROPONIN-I EXPECTED VALUES <0.05 NEGATIVE 0.06 - 0.59 AT RISK OF [place] > OR = 0.60 SUGGEST [place] Performed By: #### L501.4010 #### [facility] [address] [place], [address] CONSULTATION Observed: 11/15/2017 Status: F Source: [place] 12:23 PM [facility] REPOSITORY [facility] Medical Records Department [address] [place] [address] Consultation 11/15/17 1205 MR#: [id number] Acct: [id number] Name: KOURTNEY REZA Rep #: [id number] : 1975 41 From: Wm Underwood MD PCP: Ric Mccrary MD Status: ADM IN Y Location: [place] [address] Problem List (1) Pulmonary edema Status: Acute (2) Atypical chest pain Status: Acute (3) CAD (coronary artery disease) Status: Chronic Qualifiers: (4) HTN (hypertension) Status: Chronic Qualifiers: (5) Nonischemic cardiomyopathy Status: Chronic Comment: With ejection fraction 45 - 50%; with angiographically normal coronary arteries 05/2013; follows up with Dr. Underwood (6) S/P repair of PDA (patent ductus arteriosus) Status: Chronic Comment: At young age (7) Hyperlipidemia Status: Chronic Qualifiers: Reason for Consult Date of Consultation: 11/15/17 Reason for Consultation: Chest pain, hypertension, diabetes, end-stage renal disease, LV dysfunction, possible coronary artery disease History of Present Illness: The patient is a 41 year old F, who I previously saw about 2 years ago, and have not seen since, with a history of diabetes, hypertension, hypercholesterolemia, end-stage renal disease due to diabetes on hemodialysis for about 2 years, history of ongoing tobacco use who supposedly quit about 2 weeks ago after a [id number]-[id number] smoking history, who was admitted with respiratory distress, hypertensive emergency requiring emergent hemodialysis. Specifically the patient was doing well up until around yesterday when she developed shortness of breath, hypoxia, and substernal chest pain. She went [facility] where she was placed on BiPAP and transferred over to [facility]. She was found to be severely hypertensive with a blood pressure of 200/100 per the patient, hyperkalemia, and fluid overloaded. She underwent emergent hemodialysis which completely resolved her symptoms. It appears the patient may have missed her hemodialysis, possibly precipitating a hypertensive crisis. Her initial troponin was negative but then increase to 0.08, and now 0.07. Her initial EKG showed normal sinus rhythm, nonspecific anterolateral ST and T-wave changes in lateral ST flattening. Prior to that she denied any chest pain symptoms. In August 2017 the patient developed a pilonidal cyst on her posterior rectal area, and required extensive surgical debridement by Dr. caryn elliott. In order to avoid fecal contamination the patient had a colostomy bag placed which will be reversed in the near future. She underwent a non-walking nuclear stress test in June 2017 which was negative for inducible ischemia. Prior to that in 2014 she underwent an echocardiogram which showed improvement of her LV function from 45-60%. The patient admits to abdominal fullness, but no lower extremity edema, exertional angina, or chest pain. She reports medical compliance, and is status post DOMINGA and single ovarian removal. The patient claims that in 2008 after a she developed necrotizing fasciitis and went into a coma at [facility]. She supposedly had a myocardial infarction at that time and required a coronary stent. Our records unfortunately are unavailable on the computer as of this writing, we will work to clarify this in the near future. Prior to this event last evening she denied any chest pain or heaviness while she is been on any dialysis, and denies any decrease in her exercise capacity. [] Past Medical History Allergies/Adverse Reactions: Allergies latex Allergy (Verified 11/05/17 08:34) Rash levofloxacin [From Levaquin] Adverse Reaction (Verified 11/05/17 08:34) PT CAN'T REMEMBER PT CAN'T REMEMBER metoclopramide HCl [From Reglan] Adverse Reaction (Verified 11/05/17 08:34) Nausea NSAIDS (Non-Steroidal Anti-Inflamma Adverse Reaction (Verified 11/05/17 08:34) kidney function oxycodone HCl [From Percocet] Adverse Reaction (Verified 11/05/17 08:34) HALLUCINATIONS Home Medications: Ambulatory Orders Medication Instructions Recorded Diltiazem HCl [Tiazac] 240 mg PO DAILY 07/10/15 Past Medical History (Chronic Problems): Chronic Problems ESRD (end stage renal disease) on dialysis (Chronic) Decubitus ulcer, stage III (Chronic) CAD (coronary artery disease) (Chronic) Anemia, chronic disease (Chronic) Pilonidal cyst with abscess (Chronic) GABRIEL (obstructive sleep apnea) (Chronic) ESRD on dialysis (Chronic) Depression (Chronic) Anxiety (Chronic) HTN (hypertension) (Chronic) Nonischemic cardiomyopathy (Chronic) With ejection fraction 45 - 50%; with angiographically normal coronary arteries 05/2013; follows up with Dr. Underwood S/P repair of PDA (patent ductus arteriosus) (Chronic) At young age Diabetes mellitus type 1 (Chronic) Hyperlipidemia (Chronic) Obesity (BMI 30.0-34.9) (Chronic) Gastroparesis (Chronic) Surgical History: appendectomy, hysterectomy - and BSO, - - c-sections, L breast I+D for abscess, fistula placement LUE, L ankle surgery, appendectomy, PDA repair. Excision pilonidal cyst ulcer about 4 years ago. - *Family History Maternal History Items: Cancer, COPD, Diabetes, Hypertension, Renal Disease, Stroke Paternal History Items: Diabetes Sibling History Items: Cancer, Diabetes Smoking Status: Current every day smoker Review of Systems - Review of Systems General: Denies: Fever, Night Sweats, Fatigue Cardiovascular: Reports: Chest Discomfort, Chest Discomfort at Rest, Shortness of Breath, Shortness of Breath at Rest. Denies: Orthopnea, PND, Peripheral Edema, Palpitations, Lightheadedness, Dizziness, Near Syncope, Syncope Respiratory: Denies: Cough, Sputum Production, Hemoptysis Gastrointestinal: Denies: Hematemesis, Hematochezia, Melena Genitourinary: Denies: Dysuria, Hematuria Skin: Denies: Rash Subjectve: Patient laying down flat, no acute distress. Objective: Vital Signs Temp Pulse Resp BP Pulse Ox 98.3 F 83 28 H 126/61 H 95 11/15/17 11:33 11/15/17 11:33 11/15/17 11:33 11/15/17 11:33 11/15/17 11:33 Oxygen Flow Rate (L/min) 2 Oxygen Delivery Method Nasal Cannula Weight: 193 lb 5.526 oz Body Mass Index (BMI) 32.2 Finger Stick Blood Glucose 118 Intake and Output for Last 24 Hours Output Total 150 / 150 6200 / 6200 Balance -150 / -150 -6200 / -6200 General: Awake, Alert, Oriented x 3 HEENT: PERRL, EOMI, Sclera Non Icteric Neck: Supple, Good ROM, No Lymph Node Enlargement Lungs: Clear to auscultation Cardiovascular: Regular Rhythm, Normal S1, Normal S2, No Murmurs, No Rubs, No Gallops Vascular: No Carotid Bruits, Normal Femoral Pulses, Normal Radial Pulses, Normal Dorsalis Pedal Pulse, Normal Posterior Tibial Pulses Abdomen: Bowel Sounds Present, Soft, Non Tender, No HSM, No Organomegaly Extremities: No Cyanosis, No Clubbing, No edema Neurological: No Focal Motor or Sensory Deficit 11/14/17 22:45: Sodium 137, Potassium 6.2 H*, Chloride 109 H, Carbon Dioxide 19.0 L, Anion Gap 9, BUN 56 H, Creatinine 6.73 H, Est GFR (MDRD) Af Amer 9 L, Est GFR (MDRD) Non-Af 7 L, BUN/Creatinine Ratio 8.3 L, Glucose 157 H, Calcium 8.9, Magnesium 2.1 11/14/17 22:45: Troponin I 0.04 11/15/17 04:20: Hemoglobin A1c 5.3 11/15/17 04:20: WBC 8.6, RBC 2.52 L, Hgb 8.3 L, Hct 25.7 L, MCV 102.0 H, MCH 32.9 H, MCHC 32.3, RDW 16.1 H, RDW Differential 57.7 H, Plt Count 174, MPV 8.0, Immature Gran % (Auto) 0.200, Neut % (Auto) 78.8 H, Lymph % (Auto) 12.8 L, [place] % (Auto) 4.9, Eos % (Auto) 3.2, Baso % (Auto) 0.1, Absolute Neuts (auto) 6.8, Total Counted Not Reportable 11/15/17 04:20: Sodium 139, Potassium 4.0, Chloride 104, Carbon Dioxide 27.0, Anion Gap 8, BUN 25 H, Creatinine 3.88 H, Est GFR (MDRD) Af Amer 16 L, Est GFR (MDRD) Non-Af 13 L, BUN/Creatinine Ratio 6.4 L, Glucose 121 H, Calcium 8.8, Triglycerides 114, Cholesterol 142, LDL Cholesterol 77, VLDL Cholesterol 23, HDL Cholesterol 42 11/15/17 04:20: Troponin I 0.08 H 11/15/17 08:00: Troponin I 0.07 H Rhythm: EKG: ECHO: Stress Test: Cardiac Cath: PCI: CT Surgery: Holter monitor: EPS: PPM: CXR: Chest CT Scan: Assessment/Plan 1. Hypertensive crisis: The patient appears to have presented with hypertensive crisis possibly due to missing a dialysis event, requiring emergent hemodialysis and fluid removal. According to the patient her blood pressure was quite high, and her troponins are minimally elevated. She just underwent a noninvasive non-walking nuclear stress test in June 2017, and underwent a successful prolonged surgical debridement of a pilonidal cyst with colostomy placement in August 2017 without complications. At this point I would recommend a repeat echocardiogram to determine if there is been an interval change in her LV function since 2014. If her EF has decreased from 60% down to 40% I would have a low threshold for repeat catheterization. If however her LV function is normal, I would continue medical therapy with aggressive antihypertensive therapy going forward. I advised the patient to maintain hemodialysis schedule to avoid similar situations in the future. I recommend that she continue her baby aspirin, Coreg 25 mg p.o. twice daily, Cardizem CD 20-40 mg a day, increase her Isordil to 20 mg p.o. 3 times daily and titrate up from there, and continue hydralazine 25 mg p.o. 3 times daily. We can also go up on hydralazine as well to maintain adequate systolic pressures. In the patient's ejection fraction has remained normal, we will hold off on repeat stress testing at this time. 2. Tobacco cessation: The patient is a [id number] smoking history and alleges that she quit smoking about 2 weeks ago. I strongly encouraged her to discontinue all tobacco products. 3. 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 She reports she has not had a repeat catheterization since that time. We will try to obtain those old records from our office or from [place] to confirm her coronary disease. According to our office notes, her last catheterization was in 2012 and showed no significant disease, moderate LV dysfunction, and no evidence of stenting at that time, and no need for stenting at that time as well. 4. Hyperlipidemia: Patient was on atorvastatin, but does not appear to be on statins at this time. We will check with patient why this is, but would recommend some sort of cholesterol management to drive her LDL less than 70. 5. Thank you very much for the opportunity to participate in the cardiac care of your patient. Consultation time took place between 11 AM and 11:35 AM. Code Visit Inpatient E AND M: 29401 Init Hosp L2 11/15/17 1223 <Electronically signed by Wm Underwood MD> Date Wm Underwood MD Cosigner Signature (if applicable): Date CC: Nawaf Valdivia MD; Wm Underwood MD; Ric Mccrary MD Signed BEDSIDE GLUCOSE Collected: 11/15/2017 Status: F Source: [place] 11:06 AM [facility] REPOSITORY TYPE CODE TESTS RESULT OUT OF REFERENCE UNITS RANGE LAB L501.080 70-110 mg/dL High BEDSIDE GLU 187 Result Comment: MANAGEMENT OF PATIENT CARE PER NURSING PROTOCOL Performed By: #### L501.080 #### [facility] Point of Care [address] [place] [address] CONSULTATION Observed: 11/15/2017 Status: F Source: [place] 10:35 AM [facility] REPOSITORY [facility] Medical Records Department [address] [facility] [place] [address] Consultation 11/15/17 1026 MR#: [id number] Acct: [id number] Name: KOURTNEY REZA Van Rep #: [id number] : 1975 41 From: Nawaf Valdivia MD PCP: Ric Mccrary MD Status: ADM IN Y Location: [place] [address] Problem List (1) Pulmonary edema Status: Acute (2) ESRD (end stage renal disease) on dialysis Status: Chronic (3) Hyperkalemia Status: Acute (4) Acute hypoxic respiratory failure Status: Acute Consultation - Renal PCP/ Referring MD: Requesting physician: [] Primary care physician: Ric Mccrary - History of Present Illness History of Present Illness: The patient is a 41 year old F ESRD on TTS Patient presented with SOB . Patient was found to have hyperkalemia 6.5 and pulmonary edema Patient was dialyzed urgently last night with 3 L UF Patient missed yesterday HD session . Patient is now on NC 2l/m which is her baseline 02 requirement ROS: 12 systems review is negative this morning [] - Allergies Allergies: Allergies latex Allergy (Verified 11/05/17 08:34) Rash levofloxacin [From Levaquin] Adverse Reaction (Verified 11/05/17 08:34) PT CAN'T REMEMBER PT CAN'T REMEMBER metoclopramide HCl [From Reglan] Adverse Reaction (Verified 11/05/17 08:34) Nausea NSAIDS (Non-Steroidal Anti-Inflamma Adverse Reaction (Verified 11/05/17 08:34) kidney function oxycodone HCl [From Percocet] Adverse Reaction (Verified 11/05/17 08:34) HALLUCINATIONS - Current Medications Current Medications: Current Medications Acetaminophen (Tylenol) 650 mg PO Q6H PRN PRN PRN Reason: Mild Pain (scale 0-3)/T>100.7 Hydrocodone Bitart/Acetaminophen ([place] 5mg-325mg) 1 tablet PO Q6H PRN PRN PRN Reason: PAIN Aspirin (Aspirin, Baby) 81 mg PO DAILY@0800 [facility] Last Admin: 11/15/17 07:52 Dose: 81 mg Calcium Acetate (Phoslo Gel Cap) 667 mg PO TIDCM [facility] Last Admin: 11/15/17 07:52 Dose: 667 mg Carvedilol (Coreg) 25 mg PO BID [facility] Last Admin: 11/15/17 09:38 Dose: 25 mg Dextrose (D50w Syringe) 0 gm IV X1 PRN; Protocol PRN Reason: Hypoglycemia Diltiazem HCl (Cardizem Cd) 240 mg PO DAILY [facility] Last Admin: 11/15/17 09:38 Dose: 240 mg Docusate Sodium (Colace) 200 mg PO BID PRN PRN PRN Reason: Constipation Ergocalciferol (Vitamin D) 50,000 unit PO [facility] Fluoxetine HCl (Prozac) 40 mg PO DAILY [facility] Last Admin: 11/15/17 09:40 Dose: 40 mg Glucagon () 1 mg IM .X1 PRN PRN Reason: Hypoglycemia Heparin Sodium (Porcine) (Heparin Na) 5,000 unit SC BID [facility] Last Admin: 11/15/17 09:38 Dose: 5,000 units Hydralazine HCl (Apresoline) 25 mg PO TID [facility] Last Admin: 11/15/17 06:09 Dose: 25 mg Insulin Aspart (Novolog Flexpen (Bkc)) 0 units SC ACHS [facility] PRN Reason: Protocol Last Admin: 11/15/17 07:54 Dose: 2 units Insulin Aspart (Novolog Flexpen (Bkc)) 8 units SC TIDAC [facility] Last Admin: 11/15/17 07:54 Dose: 8 units Insulin Detemir (Levemir (Bkc)) 10 units SC BID [facility] Last Admin: 11/15/17 09:39 Dose: 10 units Isosorbide Dinitrate (Isordil) 10 mg PO TID [facility] Last Admin: 11/15/17 06:10 Dose: 10 mg Morphine Sulfate () 1 - 2 mg IV Q4H PRN PRN PRN Reason: SEVERE PAIN (6-10/10) Last Admin: 11/15/17 09:42 Dose: 2 mg Nitroglycerin (Nitrobid) 1 inch TRANSDERM. Q6H PRN PRN PRN Reason: chest pain Ondansetron HCl (Zofran) 4 mg IV Q8H PRN PRN PRN Reason: Nausea Last Admin: 11/14/17 22:54 Dose: 4 mg Pantoprazole Sodium (Protonix) 40 mg PO DAILY [facility] Last Admin: 11/15/17 09:39 Dose: 40 mg Polyethylene Glycol (Miralax) 17 gm PO DAILY [facility] Last Admin: 11/15/17 09:39 Dose: Not Given Promethazine HCl (Phenergan) 12.5 mg IV Q4H PRN PRN PRN Reason: NAUSEA/VOMITING Sodium Bicarbonate (Sodium Bicarbonate) 650 mg PO TuThSa@1000 [facility] Sodium Chloride () 5 - 30 ml IV UD PRN PRN Reason: SALINE FLUSH Last Admin: 11/15/17 09:42 Dose: 10 ml Zolpidem Tartrate (Ambien (Generic)) 5 mg PO QHS PRN PRN PRN Reason: INSOMNIA - Past Medical History Past Medical History (Chronic Problems): Chronic Problems ESRD (end stage renal disease) on dialysis (Chronic) Decubitus ulcer, stage III (Chronic) CAD (coronary artery disease) (Chronic) Anemia, chronic disease (Chronic) Pilonidal cyst with abscess (Chronic) GABRIEL (obstructive sleep apnea) (Chronic) ESRD on dialysis (Chronic) Depression (Chronic) Anxiety (Chronic) HTN (hypertension) (Chronic) Nonischemic cardiomyopathy (Chronic) With ejection fraction 45 - 50%; with angiographically normal coronary arteries 05/2013; follows up with Dr. Underwood S/P repair of PDA (patent ductus arteriosus) (Chronic) At young age Diabetes mellitus type 1 (Chronic) Hyperlipidemia (Chronic) Obesity (BMI 30.0-34.9) (Chronic) Gastroparesis (Chronic) - Past Surgical History Surgical History: appendectomy, hysterectomy - and BSO, - - c-sections, L breast I+D for abscess, fistula placement LUE, L ankle surgery, appendectomy, PDA repair. Excision pilonidal cyst ulcer about 4 years ago. - Social History Smoking Status: Current every day smoker - Family History Maternal History Items: Cancer, COPD, Diabetes, Hypertension, Renal Disease, Stroke Paternal History Items: Diabetes Sibling History Items: Cancer, Diabetes Patient Problems: Active and Suspected Problems Pulmonary edema (Acute) Hyperkalemia (Acute) Atypical chest pain (Acute) Acute hypoxic respiratory failure (Acute) Pulmonary edema (Acute) - Physical Exam General: Alert, Oriented x3 HEENT: Atraumatic, PERRLA Oral: Moist Mucosa Neck: Supple, No JVD Lungs: Clear to auscultation, Normal air movement, No rhonchi, No wheeze, No rales Cardiovascular: Regular rate, Regular Rhythm Abdomen: Bowel Sounds Present, Soft, Non Tender Extremities: No clubbing, No cyanosis, No edema Skin: No rashes Musculoskeletal: No Tenderness to Palpation of Joints or Extremities Lymphatic: No Cervical, Supraclavicular, or Inguinal Adenopathy Neurological: Cranial nerves II-XII grossly intact Psych/Mental Status: Normal Affect Comment: HD access is LUE AVF with good thrill and bruit Vital Signs Temp Pulse Resp BP Pulse Ox 98.3 F 94 30 H 147/69 H 98 11/15/17 09:50 11/15/17 09:50 11/15/17 09:50 11/15/17 09:50 11/15/17 09:50 Oxygen Flow Rate (L/min) 3 Oxygen Delivery Method Nasal Cannula Weight: 87.7 kg Body Mass Index (BMI) 32.2 Finger Stick Blood Glucose 118 Intake and Output for Last 24 Hours Output Total 150 / 150 6200 / 6200 Balance -150 / -150 -6200 / -6200 Laboratory Tests Past 24 Hrs WBC 8.6 RBC 2.52 L Hgb 8.3 L Hct 25.7 L MCV 102.0 H MCH 32.9 H MCHC 32.3 RDW 16.1 H WBC RBC Hgb Hct MCV POC Glucose POC Glucose 157 H Assessment/Plan Active and Suspected Problems Pulmonary edema (Acute) Hyperkalemia (Acute) Atypical chest pain (Acute) Acute hypoxic respiratory failure (Acute) Pulmonary edema (Acute) 1- ESRD on TTS schedule of HD. Patient goes to [facility] Missed HD session yesterday 11/14 Patient presented with acute hypoxemic RF due to pulmonary edema and hyperkalemia She was dialyzed urgently last night with 3 L UF, 1 K for 1 hour and then 2 K for the rest of treatment No need of HD today Next session is tomorrow 11/16 URR is 70% and more 2- HTN: BP is well controlled . continue the same BP meds 3- Hyperkalemia . due to missing HD session. resolved with HD session. Continue renal diet 4- Acute hypoxemic RF due to pulmonary edema S/P HD and 3 L UF Now on NC 2 l/m Keep O>I with UF Will continue to follow Nawaf Valdivia MD [phone] 11/15/17 1035 <Electronically signed by Nawaf Valdivia MD> Date Nawaf Valdivia MD Cosigner Signature (if applicable): Date CC: Nawaf Valdivia MD; Ric Mccrary MD Signed TROPONIN-I Collected: 11/15/2017 Status: F Source: [place] 8:00 AM [facility] REPOSITORY Order Comment: 'TROP' Serial specimen #1, #2, #3, or #4: 3 TYPE CODE TESTS RESULT OUT OF RANGE REFERENCE UNITS LAB L501.4010 <0.06 ng/mL High 0.07 TROPONIN-I Result Comment: TROPONIN-I EXPECTED VALUES <0.05 NEGATIVE 0.06 - 0.59 AT RISK OF [place] > OR = 0.60 SUGGEST [place] Performed By: #### L501.4010 #### [facility] [address] [place], [place], [id number] BEDSIDE GLUCOSE Collected: 11/15/2017 Status: F Source: [place] 6:36 AM [facility] REPOSITORY TYPE CODE TESTS RESULT OUT OF REFERENCE UNITS RANGE LAB L501.080 70-110 mg/dL High BEDSIDE GLU 157 Result Comment: MANAGEMENT OF PATIENT CARE PER NURSING PROTOCOL Performed By: #### L501.080 #### [facility] Point of Care [address] [place] [address]. [place], [place] [address] TROPONIN-I Collected: 11/15/2017 Status: F Source: [place] 4:20 AM [facility] REPOSITORY Order Comment: 'TROP' Serial specimen #1, #2, #3, or #4: 2 TYPE CODE TESTS RESULT OUT OF RANGE REFERENCE UNITS LAB L501.4010 <0.06 ng/mL High 0.08 TROPONIN-I Result Comment: TROPONIN-I EXPECTED VALUES <0.05 NEGATIVE 0.06 - 0.59 AT RISK OF [place] > OR = 0.60 SUGGEST [place] Performed By: #### L501.4010 #### [facility] [address] [place], [place], [id number] CBC W/DIFF, AUTOMATED Collected: 11/15/2017 Status: F Source: [place] 4:20 AM [facility] REPOSITORY TYPE CODE TESTS RESULT OUT OF RANGE REFERENCE UNITS LAB L100.1000 4.4-11.0 K/mm3 Normal WBC 8.6 LAB L100.1200 4.2-5.4 M/mm3 Low RBC 2.52 LAB L100.1300 12.0-15.0 g/dl Low HGB 8.3 LAB L100.1400 37-47 % Low HCT 25.7 LAB L100.1500 81-99 fL High MCV 102.0 LAB L100.1600 27.0-32.0 pg High MCH 32.9 LAB L100.1700 32-36 g/gl Normal MCHC 32.3 LAB L100.1810 11.6-14.6 % High RDW CV 16.1 LAB L100.1820 35.1-43.9 fl High RDW SD 57.7 LAB L100.1900 150-450 K/mm3 Normal PLT 174 LAB L100.2000 6.2-12.0 fl Normal MPV 8.0 LAB L100.2100 47-70 % High NEUT% 78.8 LAB L100.2200 19-41 % Low LY% 12.8 LAB L100.2300 0-10 % Normal MONO% 4.9 LAB L100.2400 0-5 % Normal EO% 3.2 LAB L100.2500 0-1 % Normal BASO% 0.1 LAB L100.2550 0.0-0.9 % Normal IM GRAN % 0.200 Result Comment: IG% - Immature Granulocytes (promyelocytes, myelocytes and metamyelocytes) > 1% indicates that a LEFT SHIFT is Present. LAB L100.2620 2.0-7.7 X10 3/uL Normal Absolute Neut 6.8 LAB L100.2720 0.83-4.51 X10 3/ul Normal Absolute Lymph 1.10 Performed By: #### L100.0100 #### [facility] [address] [place], [address] BASIC METABOLIC Collected: 11/15/2017 Status: F Source: [place] PROFILE (BMP) 4:20 AM [facility] REPOSITORY TYPE CODE TESTS RESULT OUT OF RANGE REFERENCE UNITS LAB L501.0100 74-106 mg/dL High GLU 121 Result Comment: Fasting Glucose result from 100 to 125 mg/dL suggests IMPAIRED HOMEOSTASIS per A.D.A. criteria. Please note revised GLUCOSE reference range effective 2017. LAB L501.1000 7-18 mg/dL High BUN 25 LAB L501.1100 0.55-1.02 mg/dL High CREAT,SERUM 3.88 Result Comment: The validity of the calculated GFR AND GFRAA in patients over 70 years has not been determined. Clinical correlation is essential. LAB L501.1110 >60 mL/min Low EST GFR 13 Result Comment: Non- GFR Calc LAB L501.1115 >60 mL/min Low EST GFR - AA 16 Result Comment: GFR Calc LAB L501.1255 ml/min Normal Estimated CRCL 17.50 LAB L501.1300 10-20 RATIO Low BUN/CRE 6.4 LAB L501.2200 8.5-10 mg/dL Normal .1 CA 8.8 LAB L501.5300 136-14 mmol/L Normal 5 NA 139 LAB L501.5600 3.5-5. mmol/L Normal 1 K 4.0 LAB L501.5900 98-107 mmol/L Normal CL 104 LAB L501.6100 21.0-3 mmol/L Normal 2.0 CO2 27.0 LAB L501.6200 5-15 Normal GAP 8 Performed By: #### L500.2500, L500.4100 #### [facility] [address] [place], [place], [id number] LIPID PROFILE Collected: 11/15/2017 Status: F Source: [place] 4:20 AM [facility] REPOSITORY TYPE CODE TESTS RESULT OUT OF RANGE REFERENCE UNITS LAB L501.4900 200 mg/dL Normal CHOL 142 Result Comment: <200 mg/dL Desirable 200-240 mg/dL Borderline >240 mg/dL High Risk LAB L501.5000 mg/dL Normal TRIG 114 Result Comment: The drugs N-Acetylcysteine and Metamizole may falsely depress this assay. Serum Triglycerides Reference Interval Normal <150 mg/dL Borderline high 150 - 199 mg/dL High 200 - 499 mg/dL Very High > or = 500 mg/dL LAB L501.6400 mg/dL Normal HDL 42 Result Comment: The drugs N-Acetylcysteine and Metamizole may falsely depress this assay. Reference Range HDL <40 mg/dL Low HDL Cholesterol HDL >or= 60 mg/dL High HDL Cholesterol LAB L501.6500 0-130 mg/dL Normal LDL 77 LAB L501.6600 5-40 mg/dL Normal VLDL 23 Performed By: #### L500.2500, L500.4100 #### [facility] [address] [place], [place], [id number] HEMOGLOBIN A1C Collected: 11/15/2017 Status: F Source: [place] 4:20 AM [facility] REPOSITORY TYPE CODE TESTS RESULT OUT OF RANGE REFERENCE UNITS LAB L501.9985 4.2-6.3 % Normal HGB A1C 5.3 Performed By: #### L501.9985 #### [facility] [address] [place], [address] BASIC METABOLIC Collected: 11/14/2017 Status: F Source: [place] PROFILE (BMP) 10:45 PM [facility] REPOSITORY TYPE CODE TESTS RESULT OUT OF RANGE REFERENCE UNITS LAB L501.0100 74-106 mg/dL High GLU 157 Result Comment: Fasting Glucose result greater than or equal to 126 mg/dL suggests DIABETES MELLITUS per A.D.A. criteria. Please note revised GLUCOSE reference range effective 2017. LAB L501.1000 7-18 mg/dL High BUN 56 LAB L501.1100 0.55-1.02 mg/dL High CREAT,SERUM 6.73 Result Comment: The validity of the calculated GFR AND GFRAA in patients over 70 years has not been determined. Clinical correlation is essential. LAB L501.1110 >60 mL/min Low EST GFR 7 Result Comment: Non- GFR Calc LAB L501.1115 >60 mL/min Low EST GFR - AA 9 Result Comment: GFR Calc LAB L501.1255 ml/min Normal Estimated CRCL 10.09 LAB L501.1300 10-20 RATIO Low BUN/CRE 8.3 LAB L501.2200 8.5-10 mg/dL Normal .1 CA 8.9 LAB L501.5300 136-14 mmol/L Normal 5 NA 137 LAB L501.5600 3.5-5. mmol/L High 1 K alert 6.2 Result Comment: Critical Result(s) Called at: 23:46:47 11/14/2017 by: DENG MUKHERJEERN PCU LAB L501.5900 98-107 mmol/L High CL 109 LAB L501.6100 21.0-32.0 mmol/L Low CO2 19.0 LAB L501.6200 5-15 Normal 9 GAP Performed By: #### L500.2500, L501.5200, L501.9520 #### [facility] [address] [place], [address] MAGNESIUM Collected: 11/14/2017 Status: F Source: [place] 10:45 PM [facility] REPOSITORY TYPE CODE TESTS RESULT OUT OF RANGE REFERENCE UNITS LAB L501.5200 1.6-2.6 mg/dL Normal MG 2.1 Performed By: #### L500.2500, L501.5200, L501.9520 #### [facility] [address] [place], [address] THYROID STIM HORMONE Collected: 11/14/2017 Status: F Source: [place] (TSH) 10:45 PM [facility] REPOSITORY TYPE CODE TESTS RESULT OUT OF RANGE REFERENCE UNITS LAB L501.9520 0.358-3.74 uIU/mL Normal TSH 1.21 Performed By: #### L500.2500, L501.5200, L501.9520 #### [facility] [address] [facility] [place], [address] CHEST 1 VIEW Observed: 11/14/2017 Status: F Source: [place] (PORTABLE) 10:23 PM [facility] REPOSITORY [facility] Services [address] [place] [address] Chest 1 View (Portable) MR#: [id number] Acct: [id number] Name: KOURTNEY REZA Rep #: [id number] : 1975 F 41 From: James Kahn MD PCP: Ric Mccrary MD Status: ADM AIDEN Study: Chest 1 View (Portable) Date of Exam: 11/14/17 Exam# [id number] Ordering Dr: Alireza Kulkarni MD STUDY: X-RAY CHEST REASON FOR EXAM: Female, 41 years old. Dyspnea. Congestive heart failure. TECHNIQUE: Single AP portable view of the chest. COMPARISON: 11/05/2017. FINDINGS: Normal lung volumes. Worsening of bilateral diffuse pulmonary infiltrates most pronounced in the mid and lower lung vidales and right worse than left. Infiltrates are combination of interstitial and airspace opacities. As on the previous report this could represent congestion/edema and/or multifocal pneumonia. No gross effusions. Normal size heart. Normal mediastinum and latrell. Normal visualized pulmonary arteries. Normal visualized aortic arch and descending thoracic aorta. Normal visualized thoracic spine. Normal visualized ribs, clavicles, and shoulders. There is no demonstrated abnormality of the visualized soft tissue structures of the upper abdomen. RAD/Chest 1 View (Portable) IMPRESSION: Worsening of prominent bilateral diffuse infiltrates. 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 The cardiac silhouette is within normal limits. There is perihilar and bilateral lower lobe interstitial prominence, more prominent than previous exam. There is a questionable ovoid consolidation adjace nt to the RIGHT heart border of the RIGHT lower lung. There is no appreciable pneumothorax or pleural effusion. The visualized osseous structures are intact. IMPRESSION: Suboptimal evaluation secondary to patient body habitus and portable technique. Worsening vascular congestion/pulmonary edema. Possible consolidation adjacent to the lower RIGHT heart border. I have personally reviewed the images of this examination and agree with the resident's findings and interpretation Interpreted By: Dejan Mahajan MD Preliminary Report By: Zach Humphries DO Electronically Signed By: Dejan Mahajan MD Dictated Date: 11/14/2017 7:14:24 PM Prelim Date: 11/14/2017 7:16:50 PM Sign Date: 11/14/2017 7:27:54 PM CBC Collected: 11/14/2017 Status: F Source: [facility] 6:34 PM [facility] REPOSITORY TYPE CODE TESTS RESULT OUT OF REFERENCE UNITS RANGE LAB WBC(LOINC) 4.60-10.80 10 3/mcL WBC 9.20 LAB RBCCT(LOINC 4.20-5.40 10 6/mcL ) Low RBC 2.87 LAB HGB(LOINC) 12.0-16.0 G/dL Low Hgb 9.8 LAB HCT(LOINC) 37.0-47.0 % Low Hct 28.9 LAB MCV(LOINC) 80.0-94.0 fL High MCV 100.5 LAB MCH(LOINC) 27.0-31.2 pg High MCH 34.1 LAB MCHC(LOINC) 33.0-37.0 G/dL MCHC 33.9 LAB RDW(LOINC) 11.5-14.5 % High RDW 16.9 LAB PLT(LOINC) 130-400 10 3/mcL Platelet 193 LAB MPV(LOINC) 7.4-10.4 fL Low MPV 6.5 Performed By: #### CBC, ADIFF, ANEU, TROP, PBNP, GFR, MG, CMP #### [address] [address] .AUTO DIFF Collected: 11/14/2017 Status: F Source: [facility] 6:34 [facility] REPOSITORY TYPE CODE TESTS RESULT OUT OF REFERENCE UNITS RANGE LAB GALINA(LOINC) 37.0-80.0 % High Neutrophil % 81.2 LAB LYM(LOINC) 10.0-50.0 % Lymphocyte % 10.6 LAB MON(LOINC) 1.7-13.0 % Monocyte % 3.5 LAB EO(LOINC) 0.0-7.0 % Eosinophil % 4.3 LAB BAS(LOINC) 0.0-2.5 % Basophil % 0.4 LAB ABLYM(LOIN 0.77-3.85 10 3/mcL C) Lymphocyte, 1.00 Absolute LAB WILLIAM(LOINC 0.15-1.00 10 3/mcL ) Monocyte, 0.30 Absolute LAB AEOS(LOINC 0.00-0.40 10 3/mcL ) Eosinophil, 0.40 Absolute LAB ABAS(LOINC 0.00-0.19 10 3/mcL ) Basophil, 0.00 Absolute Performed By: #### CBC, ADIFF, ANEU, TROP, PBNP, GFR, MG, CMP #### [address] [address] .NEUABS Collected: 11/14/2017 Status: F Source: [facility] 6:34 [facility] REPOSITORY TYPE CODE TESTS RESULT OUT OF REFERENCE UNITS RANGE LAB ANEU(LOINC) 2.85-6.16 10 3/mcL High Neutrophil, 7.40 Absolute Performed By: #### CBC, ADIFF, ANEU, TROP, PBNP, GFR, MG, CMP #### [place] [address] [place], [place] [address] TROP Collected: 11/14/2017 Status: F Source: [facility] 6:34 [facility] REPOSITORY TYPE CODE TESTS RESULT OUT OF REFERENCE UNITS RANGE LAB TROP(LOINC) 0.00-0.30 ng/mL Troponin <0.30 Result Comment: Below measuring range >=0.30 Consistent with cardiac damage, increased clinical risk and possibility of myocardial infarction. Serial measurements, clinical history, appropriate symptoms and/or ECG changes may help assess possibility of [place]. *Other non-acute coronary syndrome conditions such as CHF, myocarditis, pulmonary emboli, sepsis and cardiac surgery could result in myocardial damage and increased troponin levels. Performed By: #### CBC, ADIFF, ANEU, TROP, PBNP, GFR, MG, CMP #### [address] [address] PBNP Collected: 11/14/2017 Status: F Source: [facility] 6:34 [facility] REPOSITORY TYPE CODE TESTS RESULT OUT OF REFERENCE UNITS RANGE LAB PBNP(LOINC) 5.0-300.0 pg/mL High N-Terminal 324[address].0 proBNP Result Comment: In the presence of acute dyspnea, CHF likely if: Age <50 years: >450 pg/mL Age 50-75 years: >900 pg/mL Age >75 years: >1800 pg/mL Performed By: #### CBC, ADIFF, ANEU, TROP, PBNP, GFR, MG, CMP #### [address] [address] .GFR Collected: 11/14/2017 Status: F Source: [facility] 6:34 [facility] REPOSITORY TYPE CODE TESTS RESULT OUT OF REFERENCE UNITS RANGE LAB GFRAA(LOINC ml/min/1.73 ) sqm GFR 9 Lao Result Comment: GFR Population mean for , Non- Americans Ages 20-29 = 116 mL/min/1.73 sq.m. Ages 30-39 = 107 mL/min/1.73 sq.m. Ages 40-49 = 99 mL/min/1.73 sq.m. Ages 50-59 = 93 mL/min/1.73 sq.m. Ages 60-69 = 85 mL/min/1.73 sq.m. Ages 70+ = 75 mL/min/1.73 sq.m. Chronic Kidney Disease: Less than 60 mL/min/1.73 square meters End Stage Renal Disease: Less than 15 mL/min/1.73 square meters LAB GFRNO(LOINC) ml/min/1.73sqm GFR Non- 8 Result Comment: GFR Population mean for , Non- Americans Ages 20-29 = 116 mL/min/1.73 sq.m. Ages 30-39 = 107 mL/min/1.73 sq.m. Ages 40-49 = 99 mL/min/1.73 sq.m. Ages 50-59 = 93 mL/min/1.73 sq.m. Ages 60-69 = 85 mL/min/1.73 sq.m. Ages 70+ = 75 mL/min/1.73 sq.m. Chronic Kidney Disease: Less than 60 mL/min/1.73 square meters End Stage Renal Disease: Less than 15 mL/min/1.73 square meters Performed By: #### CBC, ADIFF, ANEU, TROP, PBNP, GFR, MG, CMP #### [place] [address] [address] MG Collected: 11/14/2017 Status: F Source: [facility] 6:34 [facility] REPOSITORY TYPE CODE TESTS RESULT OUT OF REFERENCE UNITS RANGE LAB MG(LOINC) 1.7-2.5 mg/dL Magnesium Lvl 2.1 Performed By: #### CBC, ADIFF, ANEU, TROP, PBNP, GFR, MG, CMP #### [address] [address] CMP Collected: 11/14/2017 Status: F Source: [facility] 6:34 PM [facility] REPOSITORY TYPE CODE TESTS RESULT OUT OF RANGE REFERENCE UNITS LAB 1547-9 70-105 mg/dL High GLUCOSE 212 LAB NA(LOINC) 136-146 mEq/L Low Sodium Level 134 LAB K(LOINC) 3.5-5.1 mEq/L Potassium Abnormal Level 6.6 Alert LAB CL(LOINC) 98-107 mEq/L Chloride 105 LAB CO2(LOINC) 22-29 mEq/L Low CO2 18 LAB EBAL(LOINC mEq/L ) Electrolyte Balance 11.0 LAB BUN(LOINC) 7.0-18.0 mg/dL High BUN 51.2 LAB CRE(LOINC) 0.6-1.2 mg/dL High Creatinine Lvl (s) 6.1 LAB BC(LOINC) 7-27 ratio BUN/Creatinine 8 Ratio LAB CA(LOINC) 8.4-10.2 mg/dL Calcium Lvl 9.1 LAB PROT(LOINC 6.0-8.3 G/dL ) Total Protein 8.1 LAB ALB(LOINC) 3.5-5.0 G/dL Albumin Level 3.9 LAB GLB(LOINC) G/dL Globulin 4.2 LAB AG(LOINC) 1.1-2.5 ratio Low A/G Ratio 0.9 LAB BILT(LOINC 0.2-1.0 mg/dL ) Bili Total 0.3 LAB AP(LOINC) 40-135 IU/L Alk Phos 110 LAB AST(LOINC) 10-40 IU/L AST/SGOT 25 LAB ALT(LOINC) 10-35 IU/L ALT/SGPT 32 Performed By: #### CBC, ADIFF, ANEU, TROP, PBNP, GFR, MG, CMP #### [address] [address] Observed: 11/14/2017 Status: F Source: [facility] 6:34 PM [facility] REPOSITORY . MICRO - Microbiology PROCEDURE: Rapid Influenza A+B Screen w Cult if Ind [*1] SOURCE: Nasopharyngeal BODY SITE: Nasopharynx COLLECTED DATE/TIME: 11/14/2017 18:34 EDT RECEIVED DATE/TIME: 11/14/2017 18:38 EDT START DATE/TIME: 11/14/2017 18:38 EDT FREE TEXT SOURCE: FINAL REPORTS Final Report [] Verified Date/Time/Personnel: 11/14/2017 19:08 EDT Specimen is negative for the presence of influenza A antigen. . Specimen is negative for the presence of influenza B antigen. . Inadequate specimen collection, improper sample handling and/or low levels of viral shedding may yield a false-negative result. . The optimal specimen type for the Rapid Flu test is a nasopharyngeal wash/aspirate or nasopharyngeal swab. All negative rapid tests for Flu A and Flu B will be confirmed with a Respiratory Id Panel by PCR. . Assay method employs immunofluorescence technology. Performing Locations *1: This test was performed at: [address] Performed By: #### RFLU #### [place] [address] RESPID Collected: 11/14/2017 Status: F Source: [facility] 6:32 PM [facility] REPOSITORY Order Comment: Order added by [email or web address] TYPE CODE TESTS RESULT OUT OF REFERENCE UNITS RANGE LAB RESADENO( Not Detected LOINC) Adenovirus Not Detected LAB COVHKU1(L Not Detected OINC) Coronavirus HKU1 Not Detected LAB COVNL63(L Not Detected OINC) Coronavirus NL63 Not Detected LAB HiT364C(L Not Detected OINC) Coronavirus 229E Not Detected LAB COVOC43(L Not Detected OINC) Coronavirus OC43 Not Detected LAB HMV(LOINC Not Detected ) Human Metapneumovirus Not Detected LAB INFA(LOIN Not Detected C) Influenza A Not Detected LAB INFAB(GUILLERMINA Not Detected NC) Influenza B Not Detected LAB PARAFLU1( Not Detected LOINC) Parainfluenza 1 Not Detected LAB PARAFLU2( Not Detected LOINC) Parainfluenza 2 Not Detected LAB PARAFLU3( Not Detected LOINC) Parainfluenza 3 Not Detected LAB PARAFLU4( Not Detected LOINC) Parainfluenza 4 Not Detected LAB RHINO(GUILLERMINA Not Detected NC) Rhinovirus/Enterovir us Not Detected LAB RESRSV(LO Not Detected INC) Respiratory Syncytial Virus Not Detected LAB RESMYCO(L Not Detected OINC) Mycoplasma pneumoniae Not Detected LAB RESCHLAM( Not Detected LOINC) Chlamydophila pneumoniae Not Detected LAB RESBORD(L Not Detected OINC) Bordetella Pertussis Not Detected LAB RESBPAR(L Not Detected OINC) Bordetella Parapertussis Not Detected Performed By: #### RESPID #### [place] [id number] CBC Collected: 11/12/2017 Status: F Source: [facility] 5:45 PM [facility] REPOSITORY TYPE CODE TESTS RESULT OUT OF REFERENCE UNITS RANGE LAB WBC(LOINC) 4.60-10.80 10 3/mcL WBC 7.10 LAB RBCCT(LOINC 4.20-5.40 10 6/mcL ) Low RBC 2.59 LAB HGB(LOINC) 12.0-16.0 G/dL Low Hgb 8.8 LAB HCT(LOINC) 37.0-47.0 % Low Hct 25.6 LAB MCV(LOINC) 80.0-94.0 fL High MCV 99.1 LAB MCH(LOINC) 27.0-31.2 pg High MCH 34.1 LAB MCHC(LOINC) 33.0-37.0 G/dL MCHC 34.5 LAB RDW(LOINC) 11.5-14.5 % High RDW 16.6 LAB PLT(LOINC) 130-400 10 3/mcL Platelet 176 LAB MPV(LOINC) 7.4-10.4 fL Low MPV 6.0 Performed By: #### CBC, ADIFF, ANEU, TROP, GFR, BMP #### [address] [address] .AUTO DIFF Collected: 11/12/2017 Status: F Source: [facility] 5:45 PM [facility] REPOSITORY TYPE CODE TESTS RESULT OUT OF REFERENCE UNITS RANGE LAB GALINA(LOINC) 37.0-80.0 % Neutrophil % 78.4 LAB LYM(LOINC) 10.0-50.0 % Lymphocyte % 13.1 LAB MON(LOINC) 1.7-13.0 % Monocyte % 4.4 LAB EO(LOINC) 0.0-7.0 % Eosinophil % 3.7 LAB BAS(LOINC) 0.0-2.5 % Basophil % 0.4 LAB ABLYM(LOIN 0.77-3.85 10 3/mcL C) Lymphocyte, 0.90 Absolute LAB WILLIAM(LOINC 0.15-1.00 10 3/mcL ) Monocyte, 0.30 Absolute LAB AEOS(LOINC 0.00-0.40 10 3/mcL ) Eosinophil, 0.30 Absolute LAB ABAS(LOINC 0.00-0.19 10 3/mcL ) Basophil, 0.00 Absolute Performed By: #### CBC, ADIFF, ANEU, TROP, GFR, BMP #### [address] [address] .NEUABS Collected: 11/12/2017 Status: F Source: [facility] 5:45 PM [facility] REPOSITORY TYPE CODE TESTS RESULT OUT OF REFERENCE UNITS RANGE LAB ANEU(LOINC) 2.85-6.16 10 3/mcL Neutrophil, 5.60 Absolute Performed By: #### CBC, ADIFF, ANEU, TROP, GFR, BMP #### [address] [address] TROP Collected: 11/12/2017 Status: F Source: [facility] 5:45 PM [facility] REPOSITORY TYPE CODE TESTS RESULT OUT OF REFERENCE UNITS RANGE LAB TROP(LOINC) 0.00-0.30 ng/mL Troponin <0.30 Result Comment: Below measuring range >=0.30 Consistent with cardiac damage, increased clinical risk and possibility of myocardial infarction. Serial measurements, clinical history, appropriate symptoms and/or ECG changes may help assess possibility of [place]. *Other non-acute coronary syndrome conditions such as CHF, myocarditis, pulmonary emboli, sepsis and cardiac surgery could result in myocardial damage and increased troponin levels. Performed By: #### CBC, ADIFF, ANEU, TROP, GFR, BMP #### [address] [address] .GFR Collected: 11/12/2017 Status: F Source: [facility] 5:45 [facility] REPOSITORY TYPE CODE TESTS RESULT OUT OF REFERENCE UNITS RANGE LAB GFRAA(LOINC ml/min/1.73 ) sqm GFR 11 Lao Result Comment: GFR Population mean for , Non- Americans Ages 20-29 = 116 mL/min/1.73 sq.m. Ages 30-39 = 107 mL/min/1.73 sq.m. Ages 40-49 = 99 mL/min/1.73 sq.m. Ages 50-59 = 93 mL/min/1.73 sq.m. Ages 60-69 = 85 mL/min/1.73 sq.m. Ages 70+ = 75 mL/min/1.73 sq.m. Chronic Kidney Disease: Less than 60 mL/min/1.73 square meters End Stage Renal Disease: Less than 15 mL/min/1.73 square meters LAB GFRNO(LOINC) ml/min/1.73sqm GFR Non- 9 Result Comment: GFR Population mean for , Non- Americans Ages 20-29 = 116 mL/min/1.73 sq.m. Ages 30-39 = 107 mL/min/1.73 sq.m. Ages 40-49 = 99 mL/min/1.73 sq.m. Ages 50-59 = 93 mL/min/1.73 sq.m. Ages 60-69 = 85 mL/min/1.73 sq.m. Ages 70+ = 75 mL/min/1.73 sq.m. Chronic Kidney Disease: Less than 60 mL/min/1.73 square meters End Stage Renal Disease: Less than 15 mL/min/1.73 square meters Performed By: #### CBC, ADIFF, ANEU, TROP, GFR, BMP #### [address] [address] BMP Collected: 11/12/2017 Status: F Source: [employer] 5:45 PM [facility] REPOSITORY TYPE CODE TESTS RESULT OUT OF REFERENCE UNITS RANGE LAB 1547-9 70-105 mg/dL GLUCOSE High 279 LAB NA(LOINC) 136-146 mEq/L Sodium Level 137 LAB K(LOINC) 3.5-5.1 mEq/L Potassium High Level 5.2 LAB CL(LOINC) 98-107 mEq/L Chloride 104 LAB CO2(LOINC) 22-29 mEq/L CO2 25 LAB EBAL(LOINC mEq/L ) Electrolyte Balance 8.0 LAB BUN(LOINC) 7.0-18.0 mg/dL BUN High 37.3 LAB CRE(LOINC) 0.6-1.2 mg/dL Creatinine High Lvl (s) 5.3 LAB BC(LOINC) 7-27 ratio BUN/Creatinine 7 Ratio LAB CA(LOINC) 8.4-10.2 mg/dL Calcium Lvl 8.6 Performed By: #### CBC, ADIFF, ANEU, TROP, GFR, BMP #### [place] [address] [place], [place] [address] LIP Collected: 11/12/2017 Status: F Source: [employer] 5:45 PM [facility] REPOSITORY TYPE CODE TESTS RESULT OUT OF REFERENCE UNITS RANGE LAB LIP(LOINC) 8-78 IU/L High Lipase Level 138 Performed By: #### LIP #### [facility] [place] [address] [place], [place] [address] DISCHARGE SUMMARY Observed: 11/08/2017 Status: F Source: [facility] 1:19 PM [facility] REPOSITORY [facility] Medical Records Department [address] [place] [address] Discharge Summary 11/08/17 1315 MR#: [id number] Acct: [id number] Name: KOURTNEY REZA Rep #: [id number] : 1975 41 From: Roberto Roman DO PCP: Ric Mccrary MD Status: ADM IN Y Location: [place] [address] Discharge Date and Diagnosis - Problem List Patient Problems: Active and Suspected Problems Pneumonia (Acute) ESRD (end stage renal disease) on dialysis (Acute) Date of Admission: 11/05/17 Date of Discharge: 11/08/17 - Primary Discharge Diagnosis Active and Suspected Problems Pneumonia (Acute) ESRD (end stage renal disease) on dialysis (Acute) - Secondary Discharge Diagnosis Chronic Problems Decubitus ulcer, stage III (Chronic) CAD (coronary artery disease) (Chronic) Anemia, chronic disease (Chronic) Pilonidal cyst with abscess (Chronic) GABRIEL (obstructive sleep apnea) (Chronic) ESRD on dialysis (Chronic) Depression (Chronic) Anxiety (Chronic) HTN (hypertension) (Chronic) Nonischemic cardiomyopathy (Chronic) With ejection fraction 45 - 50%; with angiographically normal coronary arteries 05/2013; follows up with Dr. Underwood S/P repair of PDA (patent ductus arteriosus) (Chronic) At young age Diabetes mellitus type 1 (Chronic) Hyperlipidemia (Chronic) Obesity (BMI 30.0-34.9) (Chronic) Gastroparesis (Chronic) Hospital Course and Treatment Imaging Results: Clinical Impression(s) from Imaging Studies Chest X-Ray 11/05/17 08:50 IMPRESSION: Compared to 31 October 2017 there is increased interstitial markings with right upper lobe lateral patchy airspace disease concerning for infectious infiltrate in the appropriate clinical setting. Underlying cardiogenic edema/alveolar disease is not excluded. Recommend repeat evaluation after appropriate treatment. 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 [place]. Operations: None, - Procedures: None Summary of Care Provided: The patient is a 41 year old F is with shortness of breath. Had a chest x-ray that showed increased interstitial markings with in the right upper lobe concerning for pneumonia which was a change from the 10th. Patient was started on gram-negative coverage with vancomycin and Zosyn. Patient was seen in consultation by infectious disease to change patient over to ceftriaxone and azithromycin. Patient steadily improved during the course of her hospitalization and is now ready for discharge. Patient will be discharged with Omnicef plus oral azithromycin. While she was here patient did receive 2 rounds of hemodialysis but has remained stable. 1. Suspected gram-negative pneumonia * Patient at risk for hospital-acquired pneumonia given her recent discharged on the fifth and also being a dialysis patient * Seen by ID and changed to azithromycin and ctx * Pulmonary toilet * ID on consult * Omnicef through 11/12, azithromycin through 11/10 2. Intractable nausea and vomiting. * exam unremarkable * known gastroparesis * cw PPI and antiemetics * improved 3. ESRD * on HD * nephrology on consult * next HD 11/08 4. recent Cdiff * cdiff tox negative here * continue with vancomycin through 11/09 (original stop date) [] Physical exam Vital Signs Height 1.68 m Weight: 88.9 kg Weight in Pounds 196.0 lbs Pulse Ox 95 Agent is seen on dialysis. No acute distress. No respiratory distress. No conversational dyspnea. Heart is regular rate and rhythm plus S1-S2 without any murmurs gallops or rubs. Lungs are clear to auscultation bilaterally. Discharge Diet: Low fat/ Low Cholesterol Discharge Activity: Return to Normal Activity Call your doctor if you observe: Fever of 101 or Higher, Shortness of breath, Chest pain Home Medications: Medications to take at Discharge Diltiazem HCl [Tiazac] 240 mg PO DAILY 07/10/15 Aspirin [Aspirin, Baby] 81 mg PO DAILY@0800 01/26/16 Calcium Acetate [Phoslo Gel Cap] 667 mg PO TIDCM 01/26/16 Ergocalciferol [Vitamin D] 50,000 unit PO FR 01/26/16 Insulin Aspart [Novolog Flexpen] 8 units SC TIDCM 01/26/16 Insulin Glargine,Hum.rec.anlog [Lantus] 5 unit SQ QHS 01/09/17 proMETHazine tablet [Phenergan tablet] 25 mg PO Q6H PRN PRN #10 tablet 03/06/17 Lisinopril 20 mg PO DAILY 03/29/17 Omeprazole Magnesium [Prilosec Otc] 20 mg PO DAILY 03/29/17 Sodium Bicarbonate 650 mg PO TUTHSA 03/29/17 Acetaminophen [Tylenol Tablet] 650 mg PO Q6H PRN PRN tablet 03/31/17 Carvedilol [Coreg (Beta Lewis)] 25 mg PO BID 06/17/17 Fluoxetine HCl 40 mg PO DAILY 09/02/17 Vancomycin [Vancocin] 125 mg PO Q6H 11/05/17 hydrALAZINE [Apresoline] 25 mg PO TID 11/05/17 Azithromycin [Zithromax] 500 mg PO Q24H #3 tab 11/08/17 Cefdinir 300 mg PO QODAY #3 cap 11/08/17 Following Prescrptions Were Given to Patient: Azithromycin [Zithromax] 500 mg PO Q24H #3 tab Cefdinir 300 mg PO QODAY #3 cap Primary Care Physician: Ric Mccrary MD [Primary Care Provider] - Within 2 Weeks [facility] Disposition: Home Minutes spent on discharge:: 32 Patient Condition:: Good Medical Necessity - Tobacco Use Smoking Status: Current every day smoker Tobacco Use: Cigarettes Meaningful Use Info Meaningful Use Diagnoses (Choose all that apply): None applicable Code Visit Inpatient E AND M: 48796 Disch Hosp 11/08/17 1319 <Electronically signed by Roberto Roman DO> Date Roberto Roman DO Cosigner Signature (if applicable): Date CC: Roberto Roman DO; Ric Mccrary MD Signed DISCHARGE INSTRUCTION Observed: 11/08/2017 Status: F Source: [facility] 1:15 PM [facility] REPOSITORY [facility] Medical Records Department [address] [place] [address] Instructions for Home/Discharge Instructions 11/08/17 1314 MR#: [id number] Acct: [id number] Name: KOURTNEY REZA Rep #: [id number] : 1975 41 From: Roberto Roman DO PCP: Ric Mccrary MD Status: ADM IN - Discharge Diagnoses Current Active Problems: Current Active and Chronic Problems Pneumonia (Acute) ESRD (end stage renal disease) on dialysis (Acute) You will use the following diet at home:: Cardiac Your food should be the consistency of: Regular Your liquids should be the consistency of: Regular/Thin Discharge Activity: Return to Normal Activity Call your doctor if you observe: Fever of 101 or Higher, Shortness of breath, Chest pain Allergies/Adverse Reactions: Allergies latex Allergy (Verified 11/05/17 08:34) Rash levofloxacin [From Levaquin] Adverse Reaction (Verified 11/05/17 08:34) PT CAN'T REMEMBER PT CAN'T REMEMBER metoclopramide HCl [From Reglan] Adverse Reaction (Verified 11/05/17 08:34) Nausea NSAIDS (Non-Steroidal Anti-Inflamma Adverse Reaction (Verified 11/05/17 08:34) kidney function oxycodone HCl [From Percocet] Adverse Reaction (Verified 11/05/17 08:34) HALLUCINATIONS Medications to take at Discharge Diltiazem HCl [Tiazac] 240 mg PO DAILY 07/10/15 Aspirin [Aspirin, Baby] 81 mg PO DAILY@0800 01/26/16 Calcium Acetate [Phoslo Gel Cap] 667 mg PO TIDCM 01/26/16 Ergocalciferol [Vitamin D] 50,000 unit PO FR 01/26/16 Insulin Aspart [Novolog Flexpen] 8 units SC TIDCM 01/26/16 Insulin Glargine,Hum.rec.anlog [Lantus] 5 unit SQ QHS 01/09/17 proMETHazine tablet [Phenergan tablet] 25 mg PO Q6H PRN PRN #10 tablet 03/06/17 Lisinopril 20 mg PO DAILY 03/29/17 Omeprazole Magnesium [Prilosec Otc] 20 mg PO DAILY 03/29/17 Sodium Bicarbonate 650 mg PO TUTHSA 03/29/17 Acetaminophen [Tylenol Tablet] 650 mg PO Q6H PRN PRN tablet 03/31/17 Carvedilol [Coreg (Beta Lewis)] 25 mg PO BID 06/17/17 Fluoxetine HCl 40 mg PO DAILY 09/02/17 Vancomycin [Vancocin] 125 mg PO Q6H 11/05/17 hydrALAZINE [Apresoline] 25 mg PO TID 11/05/17 Azithromycin [Zithromax] 500 mg PO Q24H #3 tab 11/08/17 Cefdinir 300 mg PO QODAY #3 cap 11/08/17 The following prescriptions were given: Azithromycin [Zithromax] 500 mg PO Q24H #3 tab Cefdinir 300 mg PO QODAY #3 cap Primary Care Physician: Ric Mccrary MD [Primary Care Provider] - Within 2 Weeks [facility] Proposed Discharge Date: 11/08/17 11/08/17 1315 <Electronically signed by Roberto Roman DO> Date Roberto Roman DO CC: Mirza Molina MD; Bryant Addison MD; Ric Mccrary MD BEDSIDE GLUCOSE Collected: 11/08/2017 Status: F Source: [facility] 11:18 AM [facility] REPOSITORY TYPE CODE TESTS RESULT OUT OF RANGE REFERENCE UNITS LAB L501.080 70-110 mg/dL Normal BEDSIDE GLU 103 Result Comment: MANAGEMENT OF PATIENT CARE PER NURSING PROTOCOL Performed By: #### L501.080 #### [facility] [place] [address] BEDSIDE GLUCOSE Collected: 11/08/2017 Status: F Source: [facility] 6:44 AM [facility] REPOSITORY TYPE CODE TESTS RESULT OUT OF REFERENCE UNITS RANGE LAB L501.080 70-110 mg/dL High BEDSIDE GLU 132 Result Comment: MANAGEMENT OF PATIENT CARE PER NURSING PROTOCOL Performed By: #### L501.080 #### [facility] Point of Care [address] [place], [place] [address] BASIC METABOLIC Collected: 11/08/2017 Status: F Source: [facility] PROFILE (BMP) 5:10 AM [facility] REPOSITORY TYPE CODE TESTS RESULT OUT OF RANGE REFERENCE UNITS LAB L501.0100 74-106 mg/dL High GLU 146 Result Comment: Fasting Glucose result greater than or equal to 126 mg/dL suggests DIABETES MELLITUS per A.D.A. criteria. Please note revised GLUCOSE reference range effective 2017. LAB L501.1000 7-18 mg/dL High BUN 30 LAB L501.1100 0.55-1.02 mg/dL High CREAT,SERUM 5.16 Result Comment: The validity of the calculated GFR AND GFRAA in patients over 70 years has not been determined. Clinical correlation is essential. LAB L501.1110 >60 mL/min Low EST GFR 10 Result Comment: Non- GFR Calc LAB L501.1115 >60 mL/min Low EST GFR - AA 12 Result Comment: GFR Calc LAB L501.1255 ml/min Normal Estimated CRCL 13.16 LAB L501.1300 10-20 RATIO Low BUN/CRE 5.8 LAB L501.2200 8.5-10 mg/dL Low .1 CA 8.3 LAB L501.5300 136-14 mmol/L Normal 5 NA 138 LAB L501.5600 3.5-5. mmol/L Normal 1 K 4.5 LAB L501.5900 98-107 mmol/L Normal CL 101 LAB L501.6100 21.0-3 mmol/L Normal 2.0 CO2 28.0 LAB L501.6200 5-15 Normal GAP 9 Performed By: #### L500.2500 #### [facility] [address] [place], [place], [id number] CBC-COMPLETE BLOOD CNT Collected: 11/08/2017 Status: F Source: [facility] NO DIFF 5:10 AM [facility] REPOSITORY TYPE CODE TESTS RESULT OUT OF RANGE REFERENCE UNITS LAB L100.1000 4.4-11.0 K/mm3 Normal WBC 6.2 LAB L100.1200 4.2-5.4 M/mm3 Low RBC 2.13 LAB L100.1300 12.0-15.0 g/dl Low HGB 7.1 LAB L100.1400 37-47 % Low HCT 22.1 LAB L100.1500 81-99 fL High MCV 103.8 LAB L100.1600 27.0-32.0 pg High MCH 33.3 LAB L100.1700 32-36 g/gl Normal MCHC 32.1 LAB L100.1810 11.6-14.6 % High RDW CV 15.0 LAB L100.1820 35.1-43.9 fl High RDW SD 52.9 LAB L100.1900 150-450 K/mm3 Low PLT 132 LAB L100.2000 6.2-12.0 fl Normal MPV 8.0 Performed By: #### L100.0500 #### [facility] [address] [place], [address] BEDSIDE GLUCOSE Collected: 11/07/2017 Status: F Source: [facility] 9:09 PM [facility] REPOSITORY TYPE CODE TESTS RESULT OUT OF REFERENCE UNITS RANGE LAB L501.080 70-110 mg/dL High BEDSIDE GLU 225 Result Comment: MANAGEMENT OF PATIENT CARE PER NURSING PROTOCOL Performed By: #### L501.080 #### [facility] Point of Care [address] [place] [address] BEDSIDE GLUCOSE Collected: 11/07/2017 Status: F Source: [facility] 4:07 PM [facility] REPOSITORY TYPE CODE TESTS RESULT OUT OF REFERENCE UNITS RANGE LAB L501.080 70-110 mg/dL High BEDSIDE GLU 229 Result Comment: MANAGEMENT OF PATIENT CARE PER NURSING PROTOCOL Performed By: #### L501.080 #### [facility] Point of Care [address] [place] [address] 12 LEAD ELECTROCARDIOGRAM Observed: 11/07/2017 Status: F Source: [place] 2:49 PM [facility] REPOSITORY [facility] Cardiovascular Services [address] [place] [id number] 12 Lead EKG 11/05/17 0848 MR#: [id number] Acct: [id number] Name: KOURTNEY REZA Rep #: [id number] : 1975 41 From: Kaitlynn Green MD Attending Dr: Roberto Roman DO Status: ADM IN Ordering Dr: Coral Nation MD Date: 11/05/17 Location: [facility] Sex: F C Admitted: 11/05/17 Test Reason : SOB Blood Pressure : / mmHG Vent. Rate : 090 BPM Atrial Rate : 090 BPM P-R Int : 124 ms QRS Dur : 090 ms QT Int : 388 ms P-R-T Axes : 040 048 087 degrees QTc Int : 474 ms Normal sinus rhythm Normal ECG Confirmed by PETER BEASLEY, KAITLYNN ([id number]), web editor SHANIA SOLITARIO ([id number]) on 11/07/2017 2:48:40 PM Referred By: DINAH Confirmed By:KAITLYNN GREEN MD 11/07/17 1448 Date Kaitlynn Green MD CC: Coral Nation MD; Roberto Roman DO; Ric Mccrary MD Signed BEDSIDE GLUCOSE Collected: 11/07/2017 Status: F Source: [facility] 11:31 AM [facility] REPOSITORY TYPE CODE TESTS RESULT OUT OF REFERENCE UNITS RANGE LAB L501.080 70-110 mg/dL High BEDSIDE GLU 203 Result Comment: MANAGEMENT OF PATIENT CARE PER NURSING PROTOCOL Performed By: #### L501.080 #### [facility] Point of Care [address] [place], [place] [id number] BEDSIDE GLUCOSE Collected: 11/07/2017 Status: F Source: [facility] 6:52 AM [facility] REPOSITORY TYPE CODE TESTS RESULT OUT OF REFERENCE UNITS RANGE LAB L501.080 70-110 mg/dL High BEDSIDE GLU 156 Result Comment: MANAGEMENT OF PATIENT CARE PER NURSING PROTOCOL Performed By: #### L501.080 #### [facility] Point of Care [address] [place] [address] CBC-COMPLETE BLOOD CNT Collected: 11/07/2017 Status: F Source: [facility] NO DIFF 6:15 AM [facility] REPOSITORY TYPE CODE TESTS RESULT OUT OF RANGE REFERENCE UNITS LAB L100.1000 4.4-11.0 K/mm3 Normal WBC 6.0 LAB L100.1200 4.2-5.4 M/mm3 Low RBC 2.16 LAB L100.1300 12.0-15.0 g/dl Low HGB 7.2 LAB L100.1400 37-47 % Low HCT 21.6 LAB L100.1500 81-99 fL High MCV 100.0 LAB L100.1600 27.0-32.0 pg High MCH 33.3 LAB L100.1700 32-36 g/gl Normal MCHC 33.3 LAB L100.1810 11.6-14.6 % High RDW CV 15.1 LAB L100.1820 35.1-43.9 fl High RDW SD 55.3 LAB L100.1900 150-450 K/mm3 Low PLT 105 LAB L100.2000 6.2-12.0 fl Normal MPV 8.0 Performed By: #### L100.0500 #### [facility] [address] [place], [place], [address] VANCOMYCIN, RANDOM Collected: 11/07/2017 Status: F Source: [facility] LEVEL 6:15 AM [facility] REPOSITORY TYPE CODE TESTS RESULT OUT OF RANGE REFERENCE UNITS LAB L501.8850 0.0-15.0 ug/mL Normal VANCO, RANDOM 10.2 Result Comment: VANCOMYCIN STANDARD DRUG THERAPY: CRITICAL VALUE IS > 15.0 mg/L VANCOMYCIN HIGH INTENSITY THERAPY: CRITICAL VALUE IS > 20.0 mg/L PLEASE CONTACT PHARMACY SERVICES (#[id number]) FOR INTERPRETATION OF RESULTS. THIS RESULT DOES NOT REPRESENT A PEAK OR TROUGH LEVEL FOR THIS DRUG. Performed By: #### L501.8850 #### [facility] [address] [place], [place], [address] BEDSIDE GLUCOSE Collected: 11/06/2017 Status: F Source: [facility] 10:50 PM [facility] REPOSITORY TYPE CODE TESTS RESULT OUT OF REFERENCE UNITS RANGE LAB L501.080 70-110 mg/dL High BEDSIDE GLU 201 Result Comment: MANAGEMENT OF PATIENT CARE PER NURSING PROTOCOL Performed By: #### L501.080 #### [facility] Point of Care [address] [place] [address] BEDSIDE GLUCOSE Collected: 11/06/2017 Status: F Source: [place] 9:44 PM [facility] REPOSITORY TYPE CODE TESTS RESULT OUT OF REFERENCE UNITS RANGE LAB L501.080 70-110 mg/dL High BEDSIDE GLU 165 Result Comment: MANAGEMENT OF PATIENT CARE PER NURSING PROTOCOL Performed By: #### L501.080 #### [facility] Point of Care [address] [place] [address] Observed: 11/06/2017 Status: F Source: [facility] FLU AND RSV PANEL 2:40 PM [facility] MOLECULAR REPOSITORY FLU AND RSV PANEL Normal Reference Range = Not Detected INFLUENZA A Not Detected INFLUENZA A (SUBTYPE H1) Not Detected INFLUENZA A (SUBTYPE H3) Not Detected INFLUENZA B Not Detected RSV A Not Detected RSV B Not Detected NAAT METHOD Testing was performed using nucleic acid amplification Performed By: #### M100.640 #### [facility] [address] [facility], [address] CONSULTATION Observed: 11/06/2017 Status: F Source: [place] 1:28 PM [facility] REPOSITORY [facility] Medical Records Department [address] [place] [address] Consultation 11/06/17 1320 MR#: [id number] Acct: [id number] Name: KOURTNEY REZA Rep #: [id number] : 1975 41 From: Nawaf Valdivia MD PCP: Ric Mccrary MD Status: ADM IN Location: [place] [address] Problem List (1) ESRD (end stage renal disease) on dialysis Status: Acute Consultation - Renal PCP/ Referring MD: Requesting physician: [] Primary care physician: Ric Mccrary - History of Present Illness History of Present Illness: The patient is a 41 year old F PMH of ESRD on MWF schedule of HD. HTN. hyperlipidemia, anemia, DM, gastroparesis, recent C diff colitis presented to the hospital on 415 for one day of SOB, fever and was admitted for pneumonia. I was consulted for ESRD care. last HD session was on Friday 11/03. ROS: 12 systems review is negative except SOB. vomiting with fever, chills[] - Allergies Allergies: Allergies latex Allergy (Verified 11/05/17 08:34) Rash levofloxacin [From Levaquin] Adverse Reaction (Verified 11/05/17 08:34) PT CAN'T REMEMBER PT CAN'T REMEMBER metoclopramide HCl [From Reglan] Adverse Reaction (Verified 11/05/17 08:34) Nausea NSAIDS (Non-Steroidal Anti-Inflamma Adverse Reaction (Verified 11/05/17 08:34) kidney function oxycodone HCl [From Percocet] Adverse Reaction (Verified 11/05/17 08:34) HALLUCINATIONS - Current Medications Current Medications: Current Medications Acetaminophen (Tylenol) 650 mg PO Q6H PRN PRN PRN Reason: Mild Pain (1-3)/Temp > 100.7 F Last Admin: 11/06/17 12:04 Dose: 650 mg Al Hydroxide/Mg Hydroxide (Mylanta Ii) 30 ml PO Q6H PRN PRN PRN Reason: Gastric burning Last Admin: 11/05/17 21:56 Dose: 30 ml Albuterol Sulfate (Ventolin Aerosols) 2.5 mg INHALATION Q2H PRN PRN PRN Reason: SHORTNESS OF BREATH Albuterol/Ipratropium (Duoneb) 3 ml INHALATION Q4H.RT [facility] Last Admin: 11/06/17 10:56 Dose: 3 ml Aspirin (Aspirin, Baby) 81 mg PO DAILY@0800 [facility] Last Admin: 11/06/17 08:50 Dose: 81 mg Azithromycin (Zithromax) 500 mg PO Q24 [facility] Bisacodyl (Dulcolax) 5 mg PO DAILY PRN PRN PRN Reason: Constipation Calcium Acetate (Phoslo Gel Cap) 667 mg PO TIDCM [facility] Last Admin: 11/06/17 12:04 Dose: 667 mg Carvedilol (Coreg) 25 mg PO BID [facility] Last Admin: 11/06/17 08:53 Dose: 25 mg Dextrose (D50w Syringe) 0 gm IV X1 PRN; Protocol PRN Reason: Hypoglycemia Diltiazem HCl (Cardizem Cd) 240 mg PO DAILY [facility] Last Admin: 11/06/17 08:53 Dose: 240 mg Ergocalciferol (Vitamin D) 50,000 unit PO Fr@1000 [facility] Fluoxetine HCl (Prozac) 40 mg PO DAILY [facility] Last Admin: 11/06/17 08:53 Dose: 40 mg Glucagon () 1 mg IM .X1 PRN PRN Reason: Hypoglycemia Guaifenesin (Mucinex) 1,200 mg PO BID [facility] Last Admin: 11/06/17 08:53 Dose: 1,200 mg Heparin Sodium (Porcine) () 5,000 units SC Q8 [facility] Last Admin: 11/06/17 05:36 Dose: 5,000 units Hydralazine HCl (Apresoline) 25 mg PO TID [facility] Last Admin: 11/06/17 05:35 Dose: 25 mg Ceftriaxone Sodium (Rocephin) 1 gm in 50 mls @ 100 mls/hr IV Q24 [facility] Insulin Aspart (Novolog Flexpen (Bkc)) 8 units SC TIDCM [facility] Last Admin: 11/06/17 11:59 Dose: Not Given Insulin Aspart (Novolog Flexpen (Bkc)) 0 units SC ACHS [facility] PRN Reason: Protocol Last Admin: 11/06/17 11:59 Dose: Not Given Lisinopril (Zestril) 20 mg PO DAILY [facility] Last Admin: 11/06/17 08:54 Dose: 20 mg Magnesium Hydroxide (Milk Of Magnesia) 30 ml PO DAILY PRN PRN Reason: Constipation Ondansetron HCl (Zofran) 4 mg IV Q8H PRN PRN PRN Reason: NAUSEA Last Admin: 11/06/17 06:51 Dose: 4 mg Oxycodone HCl (Oxyir) 5 - 10 mg PO Q4H PRN PRN PRN Reason: MOD-SEVERE PAIN (4-10/10) Last Admin: 11/06/17 09:01 Dose: 10 mg Pantoprazole Sodium (Protonix) 20 mg PO DAILY [facility] Last Admin: 11/06/17 08:55 Dose: 20 mg Promethazine HCl (Phenergan) 12.5 mg IV Q6H PRN PRN PRN Reason: NAUSEA/VOMITING Last Admin: 11/06/17 03:57 Dose: 12.5 mg Promethazine HCl (Phenergan Tablet) 25 mg PO Q6H PRN PRN PRN Reason: NAUSEA Last Admin: 11/06/17 12:04 Dose: 25 mg Sodium Bicarbonate (Sodium Bicarbonate) 650 mg PO TuThSa@1000 [facility] Sodium Chloride () 5 - 30 ml IV UD PRN PRN Reason: SALINE FLUSH Last Admin: 11/06/17 03:50 Dose: 10 ml Vancomycin HCl (Vancomycin 125mg/5ml Susp) 125 mg PO Q6 [facility] Last Admin: 11/06/17 12:05 Dose: 125 mg Zolpidem Tartrate (Ambien (Generic)) 5 mg PO QHS PRN PRN PRN Reason: INSOMNIA - Past Medical History Past Medical History (Chronic Problems): Chronic Problems Decubitus ulcer, stage III (Chronic) CAD (coronary artery disease) (Chronic) Anemia, chronic disease (Chronic) Pilonidal cyst with abscess (Chronic) GABRIEL (obstructive sleep apnea) (Chronic) ESRD on dialysis (Chronic) Depression (Chronic) Anxiety (Chronic) HTN (hypertension) (Chronic) Nonischemic cardiomyopathy (Chronic) With ejection fraction 45 - 50%; with angiographically normal coronary arteries 05/2013; follows up with Dr. Underwood S/P repair of PDA (patent ductus arteriosus) (Chronic) At young age Diabetes mellitus type 1 (Chronic) Hyperlipidemia (Chronic) Obesity (BMI 30.0-34.9) (Chronic) Gastroparesis (Chronic) - Past Surgical History Surgical History: appendectomy, hysterectomy - and BSO, - - c-sections, L breast I+D for abscess, fistula placement LUE, L ankle surgery, appendectomy, PDA repair. Excision pilonidal cyst ulcer about 4 years ago. - Social History Smoking Status: Current every day smoker - Family History Maternal History Items: Cancer, COPD, Diabetes, Hypertension, Renal Disease, Stroke Paternal History Items: Diabetes Sibling History Items: Cancer, Diabetes Patient Problems: Active and Suspected Problems Pneumonia (Acute) ESRD (end stage renal disease) on dialysis (Acute) - Physical Exam General: Alert, Oriented x3 HEENT: Atraumatic Oral: Moist Mucosa Neck: Supple, No JVD Lungs: - - equal air entry. left lung is clear. right upper field crackles Cardiovascular: Regular rate, Regular Rhythm, Normal S1 Abdomen: Bowel Sounds Present, Soft, Non Tender Extremities: No clubbing, No cyanosis Skin: No rashes Lymphatic: No Cervical, Supraclavicular, or Inguinal Adenopathy Neurological: Cranial nerves II-XII grossly intact, Neuro grossly intact Vital Signs Temp Pulse Resp BP Pulse Ox 97.8 F 75 20 H 171/90 H 96 11/06/17 09:00 11/06/17 12:17 11/06/17 11:00 11/06/17 09:00 11/06/17 11:00 Oxygen Flow Rate (L/min) 3.5 Oxygen Delivery Method Nasal Cannula Weight: 87.7 kg Body Mass Index (BMI) 31.1 Intake and Output for Last 24 Hours Intake Total 372 / 372 1196.5 / 1196.5 Balance 372 / 372 1196.5 / 1196.5 Microbiology Past 72 Hours 11/05/17 18:00 Streptococcus pneumoniae Antigen (M - Final Urine, Clean Catch 11/05/17 18:00 Legionella Antigen - Final Laboratory Tests Past 24 Hrs WBC 6.8 RBC 2.46 L Hgb 8.2 L Hct 24.9 L MCV 101.2 H MCH 33.3 H MCHC 32.9 RDW 14.8 H RDW Differential 51.6 H WBC RBC Hgb Hct MCV MCH MCHC RDW RDW Differential Plt Count MPV Sodium Potassium Chloride Carbon Dioxide POC Glucose POC Glucose 126 H 163 H 179 H Assessment/Plan Active and Suspected Problems Pneumonia (Acute) ESRD (end stage renal disease) on dialysis (Acute) 1- ESRD on MWF. HD session today: 2K. BQ 400 DQ 600 UF 2L HD AVF Next HD session 11/08 2- Pneumonia. on Abx as per the primary service Will continue to follow Nawaf Valdivia MD [phone] 11/06/17 1328 <Electronically signed by Nawaf Valdivia MD> Date Nawaf Valdivia MD Cosigner Signature (if applicable): Date CC: Mirza Molina MD; Bryant Addison MD; Ric Mccrary MD Signed CONSULTATION Observed: 11/06/2017 Status: F Source: [place]AN 1:16 PM [facility] REPOSITORY [facility] Medical Records Department [address] [place] [address] Consultation 11/06/17 1312 MR#: [id number] Acct: [id number] Name: KOURTNEY REZA Rep #: [id number] : 1975 41 From: Bryant Addison MD PCP: Ric Mccrary MD Status: ADM IN Y Location: [place] [address] Problem List (1) Pneumonia Status: Acute Qualifiers: Pneumonia type: due to unspecified organism Laterality: bilateral Reason for Consult: pneumonia Consulted by: Dr. Roman History of Present Illness: The patient is a 41 year old F with ESRD and recent dx of cdiff, diarrhea now resolved on po vanc who presented 11/05 with one day of dry cough and SOB. No fever or chills. No abd pain, no headache or congestion. Came to ED, started on vanc/zosyn. Today, not feeling much better, minimal improvement. No diarrhea here. Full ROS performed and neg except as noted above. - Medical History Past Medical History (Chronic Problems): Chronic Problems Decubitus ulcer, stage III (Chronic) CAD (coronary artery disease) (Chronic) Anemia, chronic disease (Chronic) Pilonidal cyst with abscess (Chronic) GABRIEL (obstructive sleep apnea) (Chronic) ESRD on dialysis (Chronic) Depression (Chronic) Anxiety (Chronic) HTN (hypertension) (Chronic) Nonischemic cardiomyopathy (Chronic) With ejection fraction 45 - 50%; with angiographically normal coronary arteries 05/2013; follows up with Dr. Underwood S/P repair of PDA (patent ductus arteriosus) (Chronic) At young age Diabetes mellitus type 1 (Chronic) Hyperlipidemia (Chronic) Obesity (BMI 30.0-34.9) (Chronic) Gastroparesis (Chronic) Allergies/Adverse Reactions: Allergies latex Allergy (Verified 11/05/17 08:34) Rash levofloxacin [From Levaquin] Adverse Reaction (Verified 11/05/17 08:34) PT CAN'T REMEMBER PT CAN'T REMEMBER metoclopramide HCl [From Reglan] Adverse Reaction (Verified 11/05/17 08:34) Nausea NSAIDS (Non-Steroidal Anti-Inflamma Adverse Reaction (Verified 11/05/17 08:34) kidney function oxycodone HCl [From Percocet] Adverse Reaction (Verified 11/05/17 08:34) HALLUCINATIONS Home Medications: Ambulatory Orders Medication Instructions Recorded Diltiazem HCl [Tiazac] 240 mg PO DAILY 07/10/15 - Social History SMOKING STATUS:: Former smoker Vital Signs Temp Pulse Resp BP Pulse Ox 97.8 F 75 20 H 171/90 H 96 11/06/17 09:00 11/06/17 12:17 11/06/17 11:00 11/06/17 09:00 11/06/17 11:00 Oxygen Flow Rate (L/min) 3.5 Oxygen Delivery Method Nasal Cannula Weight: 87.7 kg Body Mass Index (BMI) 31.1 Microbiology Past 72 Hours 11/05/17 18:00 Streptococcus pneumoniae Antigen (M - Final Urine, Clean Catch 11/05/17 18:00 Legionella Antigen - Final Laboratory Tests Past 24 Hrs WBC 6.8 RBC 2.46 L Hgb 8.2 L Hct 24.9 L MCV 101.2 H MCH 33.3 H MCHC 32.9 RDW 14.8 H RDW Differential 51.6 H WBC RBC Hgb Hct MCV MCH MCHC RDW RDW Differential Plt Count MPV Sodium Potassium Chloride Carbon Dioxide - Other Studies Radiology: [] reviewed Other Studies: [] Route of nutrition/ use of supplements: [] Nutritional Intake: [] IV Site: [] Meyer Catheter: [] - Physical Exam General: Alert, Oriented x3, Cooperative, No apparent distress HEENT: Atraumatic, PERRLA, EOMI Neck: Supple, No Nodes Lungs: Rhonchi - worse in upper R Cardiovascular: Regular rate, Regular Rhythm Abdomen: Bowel Sounds Present, Soft, Non Tender, Non-Distended Extremities: Edema Skin: No rashes IV Site: Peripheral, without redness Musculoskeletal: No Tenderness to Palpation of Joints or Extremities Neurological: Cranial nerves II-XII grossly intact - Assessment/Plan Antibiotics: [] Assessment/Plan: [] Active and Suspected Problems Pneumonia (Acute) CAP with h/o ESRD - no fever, no leukocytosis. Urine Ags ordered. Will order resp viral panel and mycoplasma Igg/IgM. Will narrow abx to ceftriaxone and add azithro for atypical coverage. Cdiff - on po vanc, well controlled Will follow, thank you. 11/06/17 9721 <Electronically signed by Bryant Addison MD> Date Bryant Addison MD Cosigner Signature (if applicable): Date CC: Mirza Molina MD; Bryant Addison MD; Ric Mccrary MD Signed BEDSIDE GLUCOSE Collected: 11/06/2017 Status: F Source: CIARAN 11:56 AM [facility] REPOSITORY TYPE CODE TESTS RESULT OUT OF REFERENCE UNITS RANGE LAB L501.080 70-110 mg/dL High BEDSIDE GLU 126 Result Comment: MANAGEMENT OF PATIENT CARE PER NURSING PROTOCOL Performed By: #### L501.080 #### [facility] Point of Care [address] [place], [place] [address] MYCOPLASMA PNEU IGG / Collected: 11/06/2017 Status: F Source: [place] IGM 10:01 AM [facility] REPOSITORY TYPE CODE TESTS RESULT OUT OF REFERENCE UNITS RANGE LAB L7000.2525 0-99 U/mL High MYCO IgG 1348 [id number] Result Comment: Negative: <100 Indeterminate: 100 - 320 Positive: >320 The reference interval established is intended as a baseline only. Values >100 may indicate a recent infection with Mycoplasma pneumoniae and need to be confirmed either by a positive IgM result and/or an additional specimen drawn 2-4 weeks later showing a significant increase in antibody levels. LAB L7000.2600 0-769 U/mL Normal MYCOPLASMA IgM < 770 Result Comment: Negative <770 Clinically significant amount of M. pneumoniae antibody not detected. Low Positive 770 - 950 M. pneumoniae specific IgM presumptively detected. It is recommended that another sample be collected 1-2 weeks later to assure reactivity. Positive >950 Highly significant amount of M. pneumoniae specific IgM antibody detected. Performed at: - [facility] [address] [id number] Director Targeted Marketing: Teja Guardado PhD, Phone: [phone] Performed By: #### L7000.2400 #### [facility] (refer to report for specific site) refer to report for address and phone number BEDSIDE GLUCOSE Collected: 11/06/2017 Status: F Source: [place]AN 6:53 AM [facility] REPOSITORY TYPE CODE TESTS RESULT OUT OF REFERENCE UNITS RANGE LAB L501.080 70-110 mg/dL High BEDSIDE GLU 163 Result Comment: MANAGEMENT OF PATIENT CARE PER NURSING PROTOCOL Performed By: #### L501.080 #### [facility] Point of Care [address] [place], [place] [address] VANCOMYCIN, RANDOM Collected: 11/06/2017 Status: F Source: [facility] LEVEL 5:05 AM [facility] REPOSITORY TYPE CODE TESTS RESULT OUT OF REFERENCE UNITS RANGE LAB L501.8850 0.0-15.0 ug/mL High VANCO, RANDOM 17.3 Result Comment: VANCOMYCIN STANDARD DRUG THERAPY: CRITICAL VALUE IS > 15.0 mg/L VANCOMYCIN HIGH INTENSITY THERAPY: CRITICAL VALUE IS > 20.0 mg/L PLEASE CONTACT PHARMACY SERVICES (#[id number]) FOR INTERPRETATION OF RESULTS. THIS RESULT DOES NOT REPRESENT A PEAK OR TROUGH LEVEL FOR THIS DRUG. Performed By: #### L501.8850 #### [facility] [address] [place], [place], [address] BASIC METABOLIC Collected: 11/06/2017 Status: F Source: [facility]AN PROFILE (BMP) 5:05 AM [facility] REPOSITORY TYPE CODE TESTS RESULT OUT OF RANGE REFERENCE UNITS LAB L501.0100 74-106 mg/dL High GLU 161 Result Comment: Fasting Glucose result greater than or equal to 126 mg/dL suggests DIABETES MELLITUS per A.D.A. criteria. Please note revised GLUCOSE reference range effective 2017. LAB L501.1000 7-18 mg/dL High BUN 44 LAB L501.1100 0.55-1.02 mg/dL High CREAT,SERUM 6.01 Result Comment: The validity of the calculated GFR AND GFRAA in patients over 70 years has not been determined. Clinical correlation is essential. LAB L501.1110 >60 mL/min Low EST GFR 8 Result Comment: Non- GFR Calc LAB L501.1115 >60 mL/min Low EST GFR - AA 10 Result Comment: GFR Calc LAB L501.1255 ml/min Normal Estimated CRCL 11.30 LAB L501.1300 10-20 RATIO Low BUN/CRE 7.3 LAB L501.2200 8.5-10 mg/dL Low .1 CA 8.0 LAB L501.5300 136-14 mmol/L Normal 5 NA 139 LAB L501.5600 3.5-5. mmol/L High 1 K 5.5 LAB L501.5900 98-107 mmol/L High CL 108 LAB L501.6100 21.0-3 mmol/L Normal 2.0 CO2 23.0 LAB L501.6200 5-15 Normal GAP 8 Performed By: #### L500.2500 #### [facility] [address] [place], [address] CBC-COMPLETE BLOOD CNT Collected: 11/06/2017 Status: F Source: CI[facility]AN NO DIFF 5:05 AM [facility] REPOSITORY TYPE CODE TESTS RESULT OUT OF RANGE REFERENCE UNITS LAB L100.1000 4.4-11.0 K/mm3 Normal WBC 6.8 LAB L100.1200 4.2-5.4 M/mm3 Low RBC 2.46 LAB L100.1300 12.0-15.0 g/dl Low HGB 8.2 LAB L100.1400 37-47 % Low HCT 24.9 LAB L100.1500 81-99 fL High MCV 101.2 LAB L100.1600 27.0-32.0 pg High MCH 33.3 LAB L100.1700 32-36 g/gl Normal MCHC 32.9 LAB L100.1810 11.6-14.6 % High RDW CV 14.8 LAB L100.1820 35.1-43.9 fl High RDW SD 51.6 LAB L100.1900 150-450 K/mm3 Low PLT 134 LAB L100.2000 6.2-12.0 fl Normal MPV 8.1 Performed By: #### L100.0500 #### [facility] [address] [place], [place], [address] M R STAPH AUREUS Collected: 11/05/2017 Status: F Source: CIARAN DNA BY PCR 10:00 PM [facility] REPOSITORY Order Comment: Order Date: 11/05/17 Has pt arrived? Y TYPE CODE TESTS RESULT OUT OF RANGE REFERENCE UNITS LAB L8200.1100 Negative Normal MRSA Negative RESULT Performed By: #### L8200.1000 #### [facility] [address] [place], [address] BEDSIDE GLUCOSE Collected: 11/05/2017 Status: F Source: ONE[place] 9:46 PM [facility] REPOSITORY TYPE CODE TESTS RESULT OUT OF REFERENCE UNITS RANGE LAB L501.080 70-110 mg/dL High BEDSIDE GLU 179 Result Comment: MANAGEMENT OF PATIENT CARE PER NURSING PROTOCOL Performed By: #### L501.080 #### [facility] Point of Care [address] [place] [address] HISTORY AND PHYSICAL Observed: 11/05/2017 Status: F Source: [place] EXAM 8:42 PM [facility] REPOSITORY [facility] Medical Records Department [address] [place] [address] History and Physical 11/05/172011 MR#: [id number] Acct: [id number] Name: KOURTNEY REZA Rep #: [id number] : 1975 41 From: Juan Perla MD PCP: Ric Mccrary MD Status: [id number] Problem List (1) Pneumonia Status: Acute Qualifiers: Pneumonia type: due to unspecified organism Laterality: bilateral (2) Decubitus ulcer, stage III Status: Chronic Qualifiers: Pressure ulcer location: sacral region Qualified Code(s): L89.153 - Pressure ulcer of sacral region, stage 3 (3) Clostridium difficile enterocolitis Status: Acute (4) CAD (coronary artery disease) Status: Chronic Qualifiers: Coronary Disease-Associated Artery/Lesion type: ute artery Koi vs. transplanted heart: ute heart Associated angina: without angina Qualified Code(s): I25.10 - Atherosclerotic heart disease of ute coronary artery without angina pectoris (5) Anemia, chronic disease Status: Chronic (6) ESRD on dialysis Status: Chronic (7) HTN (hypertension) Status: Chronic Qualifiers: Hypertension type: essential hypertension (8) Diabetes mellitus type 1 Status: Chronic Qualifiers: Diabetes mellitus complication status: with kidney complications Diabetes mellitus complication detail: with chronic kidney disease Chronic kidney disease stage: on chronic dialysis Qualified Code(s): E10.22 - Type 1 diabetes mellitus with diabetic chronic kidney disease; N18.6 - End stage renal disease; Z99.2 - Dependence on renal dialysis History of Present Illness Date of Admission: 11/05/17 Chief Complaint: Shortness of breath. Patient is a 41 years old female with multiple medical problems, presents to ED with complaining of shortness of breath, admitted on 11/05/17. She started to have some respiratory problems one day prior to admission, gradually worsening today. She had some fever and chills, up to temp 100.2 at home. She has developed dry cough, but she has some cough from smoking and underling COPD. She had seen blood mixed with stool coming from colostomy. She had very high output about one week ago, started with saida bleed observed in the colostomy bag. She had consulted her PCP, had blood work in the office. After she had consulted regarding generalized weakness, she was alerted that her Hgb was low, advised to come to ED. She continues to see some blood in stool, but had stopped about 4 days ago. Record was reviewed for Hgb, which has been ranging from 7.3 to 10. She was recently discharged form hospital on 10/26, an seen in ED on 10/31. Last Hgb on 10/31 was 8.2. CXR showed bilateral diffuse infiltrate, and prominent area probably due to infiltrate at right upper lobe. She was afebrile, and WBC was 6/5. She was discharged from hospital on 10/26/17 for c. difficile, still on vancomycin PO. She has h/o DM I, ESRD, COPD, s/p colostomy after she developed large ulcer close to rectum. Past Medical History Past Medical History (Chronic Problems): Chronic Problems Decubitus ulcer, stage III (Chronic) CAD (coronary artery disease) (Chronic) Anemia, chronic disease (Chronic) Pilonidal cyst with abscess (Chronic) GABRIEL (obstructive sleep apnea) (Chronic) ESRD on dialysis (Chronic) Depression (Chronic) Anxiety (Chronic) HTN (hypertension) (Chronic) Nonischemic cardiomyopathy (Chronic) With ejection fraction 45 - 50%; with angiographically normal coronary arteries 05/2013; follows up with Dr. Underwood S/P repair of PDA (patent ductus arteriosus) (Chronic) At young age Diabetes mellitus type 1 (Chronic) Hyperlipidemia (Chronic) Obesity (BMI 30.0-34.9) (Chronic) Gastroparesis (Chronic) Allergies latex Allergy (Verified 11/05/17 08:34) Rash levofloxacin [From Levaquin] Adverse Reaction (Verified 11/05/17 08:34) PT CAN'T REMEMBER PT CAN'T REMEMBER metoclopramide HCl [From Reglan] Adverse Reaction (Verified 11/05/17 08:34) Nausea NSAIDS (Non-Steroidal Anti-Inflamma Adverse Reaction (Verified 11/05/17 08:34) kidney function oxycodone HCl [From Percocet] Adverse Reaction (Verified 11/05/17 08:34) HALLUCINATIONS Home Medications: Ambulatory Orders Medication Instructions Recorded Diltiazem HCl [Tiazac] 240 mg PO DAILY 07/10/15 Surgical History: appendectomy, hysterectomy - and BSO, - - c-sections, L breast I+D for abscess, fistula placement LUE, L ankle surgery, appendectomy, PDA repair. Excision pilonidal cyst ulcer about 4 years ago. Smoking Status: Current every day smoker - *Family History Maternal History Items: Cancer, COPD, Diabetes, Hypertension, Renal Disease, Stroke Paternal History Items: Diabetes Sibling History Items: Cancer, Diabetes Review of Systems Comment: ROS: In general: Patient has been in good health, denied of any constitutional symptoms, such as weight loss, or gain, fever, chills, or night sweats. Patient denied of any profound fatigue. HEENT: Unremarkable. Patient denied of any dizziness, chronic headache, blurred vision, double vision, dry mouth, or nasal congestion. CV/respiratory: See HPI. GI: See HPI. She had nausea and vomiting at home. : Patient denied any significant urinary symptoms. Neurology: Unremarkable. There is no history of seizure as an adult. Psychological: Unremarkable. . Endocrine: Unremarkable. Musculoskeletal: Unremarkable. VTE Information - Inpt Only VTE Present on Admission: No VTE Mechan Device Prophylaxis: Knee High JUANCHO Hose VTE Pharm Prophylaxis ordered?: Yes Patient Problems: Active and Suspected Problems Pneumonia (Acute) Objective: In general, patient is a well-nourished and developed adult. HEENT: Head is atraumatic, and normocephalic. Pupils are equal, round, and reactive to light and accommodations. Neck is supple. There is no lymphadenopathy, or thyromegaly. Oral mucosa is pink, and moist. There are no lesions. Heart: Auscultation is normal with regular rhythm and rate. There is no extra heart sounds, or murmurs. S1 and S2 are present. Point of maximal impulse is not displaced. Lungs: Mostly clear, with rales at right mid lung field anteriorly. Abdomen: Abdominal wall is non-tender, and non-distended. There is no palpable mass or organomegaly. Normoactive bowel sounds are present. Extremities: There is no cyanosis or clubbing. Peripheral pulses are palpable. There is no edema. Skin: There are no any skin discoloration or lesions. Neurological: CN II - XII are intact. Sensory and motor functions are grossly normal with no obvious deficit. Cerebellar functions are within normal range. Gait was not tested. - Physical Exam Vital Signs Temp Pulse Resp BP Pulse Ox 97.8 F 81 16 186/84 H 95 11/05/17 15:43 11/05/17 18:54 11/05/17 18:45 11/05/17 15:43 11/05/17 18:45 Oxygen Delivery Method Room Air Weight: 193 lb 5.526 oz Body Mass Index (BMI) 31.1 Intake and Output for Last 24 Hours Intake Total 372 / 372 Balance 372 / 372 Microbiology Past 72 Hours 11/05/17 18:00 Legionella Antigen - Final Diagnostic Data Chest X-Ray 11/05/17 08:50 IMPRESSION: Compared to 31 October 2017 there is increased interstitial markings with right upper lobe lateral patchy airspace disease concerning for infectious infiltrate in the appropriate clinical setting. Underlying cardiogenic edema/alveolar disease is not excluded. Recommend repeat evaluation after appropriate treatment. Electronically Signed: Ariel Salas DO at 9:10 EDT , Service support , Assessment/Plan Active and Suspected Problems Pneumonia (Acute) Patient is a 41 years old female with multiple medical problems, presents to ED with complaining of shortness of breath, admitted on 11/05/17. She started to have some respiratory problems one day prior to admission, gradually worsening today. She had some fever and chills, up to temp 100.2 at home. She has developed dry cough, but she has some cough from smoking and underling COPD. She had seen blood mixed with stool coming from colostomy. She had very high output about one week ago, started with saida bleed observed in the colostomy bag. She had consulted her PCP, had blood work in the office. After she had consulted regarding generalized weakness, she was alerted that her Hgb was low, advised to come to ED. She continues to see some blood in stool, but had stopped about 4 days ago. Record was reviewed for Hgb, which has been ranging from 7.3 to 10. She was recently discharged form hospital on 10/26, an seen in ED on 10/31. Last Hgb on 10/31 was 8.2. CXR showed bilateral diffuse infiltrate, and prominent area probably due to infiltrate at right upper lobe. She was afebrile, and WBC was 6/5. She was discharged from hospital on 10/26/17 for c. difficile, still on vancomycin PO. She has h/o DM I, ESRD, COPD, s/p colostomy after she developed large ulcer close to rectum. #1 Bilateral pneumonia. Started on vancomycin and Zosyn started for HCAP. She was recently admitted to hospital. Continue bronchodilator, DuoNeb and albuterol prn. Oxygen supplement. #2 Recent c. diff colitis. Continue vancomycin po. Consult ID for further management. #3 DM I. Continue home regimen of meal time and long-acting insulin. Add sliding scale insulin. #4 Pressure ulcer, sarcal/coccyx. Wound RN consult. #5 Recent blood in stool. Hgb appears stable. She did not have any episode for bleeding. She was scheduled for colonoscopy as outpatient, but needs to defer until she is well. #6 ESRD. She is on HD T-T-Mon, but had missed Monday. Consult nephrology. VTE prophylaxis: heparin SQ. GI prophylaxis: PPI po. Patient is full code. Disposition: to be determined. Code Visit Inpatient E AND M: 15095 Init Hosp L3 11/05/172041 <Electronically signed by Juan Perla MD> Date Juan Perla MD Cosigner Signature: Date (if applicable) CC: Ric Mccrary MD; Juan Perla M.D. Signed Observed: 11/05/2017 Status: F Source: CIARAN LEGIONELLA ANTIGEN 6:00 PM [facility] URINE REPOSITORY Legionella, UR Legionella Antigen result interpretation: Negative Presumptive negative for Legionella pneumophila serogroup 1 antigen in urine, suggesting no recent or current infection. Legionella Ag, Urine Negative (See interpretation below) Performed By: #### M300.4500 #### [facility] [address] [place] [address]. [place], [address] STREP Observed: 11/05/2017 Status: F Source: [facility] PNEUMONIAE ANTIG(UR,CSF) 6:00 PM [facility] REPOSITORY S pneumo Ag URINE INTERPRETATION Negative Urine Presumptive negative for pneumococcal pneumonia, suggesting no current or recent pneumococcal infection. Infection due to S pneumoniae cannot be ruled out since the antigen present in the sample may be below the detection limit of the test. Strep pneumo Test Negative URINE (See interpretation below) Performed By: #### M300.4600 #### [facility] [address] [place], [place] [address]. [place], [place], [address] Observed: 11/05/2017 Status: F Source: [facility] CDIFF (MOLECULAR) 2:40 PM [facility] REPOSITORY Cdiff-Molecular Normal Reference Range = Negative C. Diff DNA Negative- No toxigenic C. Diff DNA Detected NAAT METHOD Testing was performed using nucleic acid amplification Performed By: #### M100.6796 #### [facility] [address] [place] [address]. [place], [address] Observed: 11/05/2017 Status: F Source: [facility] INFLUENZA A+B (RAPID 1:20 PM [facility] [place]) REPOSITORY Order Date: 11/05/17 Has pt arrived? Y FLU A/B Rapid Negative test results should be confirmed by culture. Order Rapid Viral Culture for Influenzae A+B ([id number]) if clinically indicated. Influenza Ag, Direct Presumptive NEGATIVE for Influenza A/B Antigen (See Note) Performed By: #### M101.0101 #### [facility] [address] [place], [place] [address]. [place], [address] EMERGENCY DEPARTMENT Observed: 11/05/2017 Status: F Source: [place] SUMMARY 11:11 AM [facility] REPOSITORY [facility] Medical Records Department [address] [place] [address] Emergency Department Summary 11/05/17 0849 MR#: [id number] Acct: [id number] Name: KOURTNEY REZA Rep #: [id number] : 1975 41 From: Coral Nation MD PCP: Ric Mccrary MD Status: REG ER - ER Visit Summary Date of Service: 11/05/17 Chief Complaint: Shortness of breath History of Present Illness: The patient is a 41 F presenting with shortness of breath. She states this started yesterday. It is worsened with exertion. She has had temperatures up to 100.2 at home. She has had nausea, vomiting 2. She states she has had loose stool in her colostomy bag with blood. She is scheduled for colonoscopy tomorrow per Dr. Zhang. She is currently being treated for C. difficile with vancomycin p.o. She missed dialysis yesterday. She complains of generalized weakness. Her primary care physician called her and advised her that her hemoglobin which was drawn on Monday was low. She was advised to come to the ED for further evaluation. Physical Examination: Blood pressure 186/92, temperature 98, heart rate 103, respiratory 24, pulse ox 98% on room air. Alert no acute distress. HEENT exam is unremarkable. Neck is supple. Lungs are clear and equal bilaterally. Heart is regular and tachycardic Abdomen is soft nontender nondistended. Colostomy bag Extremities are unremarkable. Skin is warm and dry. No focal neurologic deficit. Remainder of exam is unremarkable. Emergency Department Course and Treatment: EKG is sinus rhythm rate of 90 with no acute ischemic changes. Chest x-ray shows compared to 31 October 2017 there is increased interstitial markings with right upper lobe lateral patchy airspace disease concerning for infectious infiltrate. Underlying cardiogenic edema/alveolar disease is not excluded. CBC shows a hemoglobin of 8.3, platelets 121. Urinalysis unremarkable. Basic metabolic panel shows glucose 146, BUN 42, creatinine 5.43. Troponin is negative. Lactic acid is normal. She was given Vanc and Zosyn IV for HCAP. Will discuss with the hospitalist for admission. Disposition: Admission Impression: HCAP, GI bleed, anemia, end-stage renal disease This note was generated with [employer] dictation software. It may contain incorrect words, spelling, and punctuation that were not noted in review of the chart prior to signing ED Disposition - Plan for ED Patient: Chief Complaint: Shortness of Breath Referrals: Ric Mccrary MD [Primary Care Provider] - What to do if you have Problems For any increased pain, shortness of breath, bleeding, nausea or vomiting, chest pain, or any unexpected problems, contact your Primary Care Provider. Call [facility] ([phone]) or report to the closest Emergency Room. Call 911 if necessary. 11/05/17 1111 <Electronically signed by Coral Nation MD> Date Coral Nation MD Cosigner Signature (If Indicated): Date CC: Ric Mccrary MD Observed: 11/05/2017 Status: F Source: [place] CULTURE, BLOOD (WB) 11:05 AM [facility] REPOSITORY BC No growth in 5 days. Performed By: #### M200.1000 #### [facility] [address] [place], [place], [address] Observed: 11/05/2017 Status: F Source: CIAR[place] CULTURE, BLOOD (WB) 10:00 AM [facility] REPOSITORY BC No growth in 5 days. Performed By: #### M200.1000 #### [facility] [address] [place], [address] URINALYSIS, COMPLETE Collected: 11/05/2017 Status: F Source: [place] 9:37 AM [facility] REPOSITORY Order Comment: Order Date: 11/05/17 Has pt arrived? Y How was Urine Obtained? CLEAN CATCH TYPE CODE TESTS RESULT OUT OF RANGE REFERENCE UNITS LAB L400.3000 Yellow COLOR Normal Yellow LAB L400.3050 Clear Normal CLARITY Sl. Cloudy LAB L400.3200 Normal mg/dl High GLUCOSE, UR 100 LAB L400.3300 Negative mg/dL Normal BILIRUBIN URINE Negative LAB L400.3400 Negative mg/dl Normal KETONE UR Negative LAB L400.3465 1.002-1.030 Normal SP.GR. DIPSTX 1.015 LAB L400.3550 5.0 - 8.0 pH UR Normal 8.0 LAB L400.3600 Negative mg/dl High PROT DIPSTX 100 LAB L400.3700 Normal mg/dl Normal UROBILI Normal LAB L400.3750 Negative Normal NITRITE UR Negative LAB L400.3780 Negative /ul High 10 OCCULT BLOOD-UR LAB L400.3800 Negative /ul LEUK Normal ESTERASE Negative LAB L400.4050 0-5 /hpf WBC 0 Normal SEEN LAB L400.4100 0-5 /hpf 0 Normal RBC-UA SEEN LAB L400.4150 5-10 /hpf SQUAM Normal EPI 0-5 SEEN LAB L400.4300 None Seen /hpf 0 Normal BACTERIA SEEN LAB L400.4350 <or=2+ /hpf 0 Normal MUCUS, URINE SEEN Performed By: #### L400.0001 #### [facility] [address] [place], [place], [id number] CBC W/DIFF, AUTOMATED Collected: 11/05/2017 Status: F Source: [place] 9:28 AM [facility] REPOSITORY TYPE CODE TESTS RESULT OUT OF RANGE REFERENCE UNITS LAB L100.1000 4.4-11.0 K/mm3 Normal WBC 6.5 LAB L100.1200 4.2-5.4 M/mm3 Low RBC 2.54 LAB L100.1300 12.0-15.0 g/dl Low HGB 8.3 LAB L100.1400 37-47 % Low HCT 25.1 LAB L100.1500 81-99 fL Normal MCV 98.8 LAB L100.1600 27.0-32.0 pg High MCH 32.7 LAB L100.1700 32-36 g/gl Normal MCHC 33.1 LAB L100.1810 11.6-14.6 % High RDW CV 15.0 LAB L100.1820 35.1-43.9 fl High RDW SD 53.8 LAB L100.1900 150-450 K/mm3 Low PLT 121 LAB L100.2000 6.2-12.0 fl Normal MPV 8.1 LAB L100.2100 47-70 % Normal NEUT% 68.9 LAB L100.2200 19-41 % Low LY% 18.8 LAB L100.2300 0-10 % Normal MONO% 5.1 LAB L100.2400 0-5 % High EO% 6.1 LAB L100.2500 0-1 % Normal BASO% 0.3 LAB L100.2550 0.0-0.9 % Normal IM GRAN % 0.800 Result Comment: IG% - Immature Granulocytes (promyelocytes, myelocytes and metamyelocytes) > 1% indicates that a LEFT SHIFT is Present. LAB L100.2620 2.0-7.7 X10 3/uL Normal Absolute Neut 4.5 LAB L100.2720 0.83-4.51 X10 3/ul Normal Absolute Lymph 1.23 Performed By: #### L100.0100 #### [facility] [address] [place], [address] COMPREHENSIVE METABOLIC Collected: 11/05/2017 Status: F Source: [facility] 9:28 AM [facility] REPOSITORY Order Comment: 'TROP' Serial specimen #1, #2, #3, or #4: 1 TYPE CODE TESTS RESULT OUT OF RANGE REFERENCE UNITS LAB L501.0100 74-106 mg/dL High GLU 146 Result Comment: Fasting Glucose result greater than or equal to 126 mg/dL suggests DIABETES MELLITUS per A.D.A. criteria. Please note revised GLUCOSE reference range effective 2017. LAB L501.1000 7-18 mg/dL High BUN 42 LAB L501.1100 0.55-1.02 mg/dL High CREAT,SERUM 5.43 Result Comment: The validity of the calculated GFR AND GFRAA in patients over 70 years has not been determined. Clinical correlation is essential. LAB L501.1110 >60 mL/min Low EST GFR 9 Result Comment: Non- GFR Calc LAB L501.1115 >60 mL/min Low EST GFR - AA 11 Result Comment: GFR Calc LAB L501.1255 ml/min Normal Estimated CRCL 12.51 LAB L501.1300 10-20 RATIO Low BUN/CRE 7.7 LAB L501.1500 6.4-8. g/dL Normal 2 T PROT 7.4 LAB L501.1800 3.2-5. g/dL Low 0 ALB 2.6 LAB L501.1950 2.2-4. g/dL High 2 GLOB 4.8 LAB L501.2000 0.9-2. RATIO Low 4 A/G 0.5 LAB L501.2200 8.5-10 mg/dL Low .1 CA 8.1 LAB L501.4100 15-37 U/L Normal AST 18 LAB L501.4305 45-117 U/L Normal ALK P 95 LAB L501.4405 13-56 U/L Normal ALT 31 LAB L501.4600 0.20-1 mg/dL Normal .00 T BILI 0.40 LAB L501.5300 136-14 mmol/L Normal 5 NA 145 LAB L501.5600 3.5-5. mmol/L Normal 1 K 5.1 LAB L501.5900 98-107 mmol/L High CL 113 LAB L501.6100 21.0-3 mmol/L Normal 2.0 CO2 23.0 LAB L501.6200 5-15 Normal GAP 9 Performed By: #### L500.4050, L501.4010 #### [facility] [address] [place], [place], [address] TROPONIN-I Collected: 11/05/2017 Status: F Source: [place] 9:28 AM [facility] [place] REPOSITORY Order Comment: 'TROP' Serial specimen #1, #2, #3, or #4: 1 TYPE CODE TESTS RESULT OUT OF RANGE REFERENCE UNITS LAB L501.4010 <0.06 ng/mL Normal < 0.02 TROPONIN-I Result Comment: TROPONIN-I EXPECTED VALUES <0.05 NEGATIVE 0.06 - 0.59 AT RISK OF [place] > OR = 0.60 SUGGEST [place] Performed By: #### L500.4050, L501.4010 #### [facility] [address] [place], [place], [address] LACTIC ACID Collected: 11/05/2017 Status: F Source: [place] 9:28 AM [facility] [place] REPOSITORY Order Comment: Yes/No query for Sepsis Lactate Rule Y TYPE CODE TESTS RESULT OUT OF RANGE REFERENCE UNITS LAB L503.6005 0.4-2.0 mmol/L Normal LACTIC ACID 0.8 Performed By: #### L503.6005 #### [facility] [address] [place], [address] CHEST 1 VIEW Observed: 11/05/2017 Status: F Source: [place] (PORTABLE) 8:44 AM [facility] [place] REPOSITORY [facility] Services [address] [place] [address] Chest 1 View (Portable) MR#: [id number] Acct: [id number] Name: KOURTNEY REZA Rep #: [id number] : 1975 F 41 From: Ariel Salas DO PCP: Ric Mccrary MD Status: PRE ER Study: Chest 1 View (Portable) Date of Exam: 11/05/17 Exam# [id number] Ordering Dr: Coral Nation MD STUDY: X-RAY CHEST REASON FOR EXAM: Female, 41 years old. Shortness of breath and cough. TECHNIQUE: Single AP portable view of the chest. COMPARISON: 31 October 2017 FINDINGS: Bilateral prominent interstitial markings and patchy airspace disease most notable within the right upper lateral lung and basilar segments. The lungs are clear and expanded. There is no demonstrated pleural abnormality. Normal size heart. Normal mediastinum and latrell. Normal visualized pulmonary arteries. Normal visualized aortic arch and descending thoracic aorta. Normal visualized thoracic spine. Normal visualized ribs, clavicles, and shoulders. There is no demonstrated abnormality of the visualized soft tissue structures of the upper abdomen. RAD/Chest 1 View (Portable) IMPRESSION: Compared to 31 October 2017 there is increased interstitial markings with right upper lobe lateral patchy airspace disease concerning for infectious infiltrate in the appropriate clinical setting. Underlying cardiogenic edema/alveolar disease is not excluded. Recommend repeat evaluation after appropriate treatment. Electronically Signed: Ariel Salas DO at 9:10 EDT , Service support , CC: Coral Nation MD; Ric Mccrary MD Tester Operator Helper: Signed 12 LEAD ELECTROCARDIOGRAM Observed: 11/03/2017 Status: F Source: [place] 11:28 AM [facility] [place] REPOSITORY [facility] [address] [place] [address] 12 Lead EKG 10/31/17 1545 MR#: [id number] Acct: [id number] Name: KOURTNEY REZA Rep #: [id number] : 1975 41 From: Robert Tompkins MD Attending Dr: Status: DEP ER Ordering Dr: Anila Bartlett MD Date: 10/31/17 Location: ED Sex: F C Admitted: Test Reason : SOB Blood Pressure : / mmHG Vent. Rate : 073 BPM Atrial Rate : 073 BPM P-R Int : 138 ms QRS Dur : 090 ms QT Int : 470 ms P-R-T Axes : 043 068 117 degrees QTc Int : 517 ms Poor data quality, interpretation may be adversely affected Sinus rhythm with Premature atrial complexes Nonspecific T wave abnormality Abnormal ECG Confirmed by LEDA BEASLEY, ROBERT ([id number]), web editor SHANIA SOLITARIO ([id number]) on 11/03/2017 11:27:42 AM Referred By: RAJENDRA Confirmed By:ROBERT TOMPKINS MD 11/03/17 1127 Date Robert Tompkins MD CC: Anila Bartlett MD; Ric Mccrary MD Signed PROGRESS Observed: 11/02/2017 Status: COMPLETED Source: [place] 5:36 PM [facility] [place] REPOSITORY O ID: [id number] Author: Petty Zhang Service: (none) Author Type: Physician Type: Progress Notes Filed: 11/02/2017 5:44 PM Note Text: HISTORY AND PHYSICAL Kourtney Reza 1975 REFERRING PHYSICIAN: Reji Hartley (Pa-C* CHIEF COMPLAINT: Rectal Problem HPI: The patient is a 41 year old female referred for endoscopy. Kourtney notes bloody stools per her stoma bag for the past few days with increased stool output/diarrhea, but basically diarrhea for the past 3 weeks. The patient has a complex history of complicated requiring debridement down to the gluteal area and necrotizing anal sphincter. I performed a loop colostomy in July. The patient presented on October 23 due to diarrhea and was found to have C. difficile in her stool. She was started on oral vancomycin and discharged. She had been doing reasonably well but then started noticing fever on November 01, and then up to 13 significantly liquidy stools into the stoma bag with now some pink to blood-tinged fluid. She denies significant abdominal pain. She notes no significant fever today. The patient notes no history of upper GI complaints. Kourtney has undergone prior endoscopy. I performed colonoscopy in the fall which demonstrated possibly lymphocytic colitis with increased intraepithelial lymphocytes in the terminal ileal biopsy . When I had seen her for diarrhea of unknown origin at that time for a normal-appearing terminal ileum and colon. The patient is being seen by me today at the request of Reji Hartley (YvonneC* my opinion and advice regarding recent C. difficile colitis, now with increased stooling and bloody stomal output. PAST MEDICAL HISTORY Diagnosis Date - Anemia of chronic disease - Anxiety - Cardiomyopathy ([facility]) last echo 08/07 showed normal LVF - CHF (congestive heart failure) ([facility]) - COPD (chronic obstructive pulmonary disease) ([facility]) - DM (diabetes mellitus) ([facility]) type 2, approx age22 - ESRD on dialysis ([facility]) - Hirsutism - Hypertension - Necrotizing fasciitis ([facility]) 2009 due to wound of abdomen and MRSA - GABRIEL (obstructive sleep apnea) no CPAP usage - Other congenital anomaly of uterus bicornuate - Proteinuria - PVD (peripheral vascular disease) ([facility]) - Retinopathy due to secondary diabetes mellitus ([facility]) PAST SURGICAL HISTORY Procedure Laterality Date - APPENDECTOMY 06/2013 - AV FUSE, UPPR ARM, CEPHALIC Left 05-05-15 radial--cephalic - BALLN ANGIOPLASTY,PERC VENOUS Left 07-23-15 AV fistula - DELIVERY ONLY 2008 x 1 - COLONOSCOP W/ OR W/O [facility] SPEC 05/22/2017 Colonoscopy - path - lymphocytic colitis - DANDC, DIAG AND/OR THERAPEUTIC x3 Dilation AND curettage - INS TUNNEL CVC W/O PORT >=5 Right 07-10-15 port acath removed - LAP, SURG ENTEROLYSIS 10/10/13 laparoscopic lysis of adhesions - PAST SURGICAL HISTORY OF 2009 seven surgeries to debride necrotizing fasciitis, at c section site. - PAST SURGICAL HISTORY OF 2008 or 2009 hernia and tummy tuck. - PAST SURGICAL HISTORY OF pda closure at age 2 weeks. - PAST SURGICAL HISTORY OF Fracture repair left ankle, with removal of hardware. - PAST SURGICAL HISTORY OF 1977 Tumor removed from base of neck- benign - PAST SURGICAL HISTORY OF Cyst removed from chest - PAST SURGICAL HISTORY OF Cyst removed from Chest AND Coccyx area - REMOVAL CECILIO CVC W/O PUMP Right 09/09/15 Removal right IJ catheter - TUBAL LIGATION, 12/2008 at time of c/section - VAG HYST,RMV TUBE/OVARY 10/10/13 LAVH/RSO, left salpingectomy Current Outpatient Prescriptions: vancomycin (VANCOCIN) 125 mg capsule Take 1 capsule by mouth every 6 hours. ALPRAZolam (XANAX) 0.5 mg tablet Take 1 tablet by mouth as needed for up to 90 days. Take one tablet by mouth prior to dialysis as needed for anxiety. Miralax / Gatorade Prep Miralax 238 gm bottle, (2) 32 oz bottles of Gatorade, AND 4 Dulcolax 5 mg tabs- as directed per instructions lisinopril (ZESTRIL, PRINIVIL) 20 mg tablet Take 20 mg by mouth once daily. budesonide, enteric coated (ENTOCORT EC) 3 mg 24 hr capsule Take 2 capsules by mouth once daily. FLUoxetine HCl (PROZAC) 40 mg capsule Take 1 capsule by mouth once daily. aspirin, enteric coated (ASPIRIN, ENTERIC COATED) 81 mg EC tablet Take 1 tablet by mouth once daily. nystatin (MYCOSTATIN) powder Apply 1 application to affected area three times daily. promethazine (PHENERGAN) 25 mg tablet TAKE 1 TABLET BY MOUTH EVERY 6 HOURS NEEDED FOR NAUSEA/VOMITING. carvedilol (COREG) 25 mg tablet Take 1 tablet by mouth twice daily with meals. atorvastatin (LIPITOR) 20 mg tablet Take 1 tablet by mouth daily at bedtime. For cholesterol. ergocalciferol, vitamin D2, (VITAMIN D) 50,000 unit capsule Take 1 capsule by mouth once each week. carbonyl iron (FEOSOL) 45 mg tab Take 1 tablet by mouth three times daily with meals. amLODIPine (NORVASC) 10 mg tablet Take 1 tablet by mouth once daily. insulin aspart (NOVOLOG FLEXPEN) 100 unit/mL inpn 10 units three times a day with meals diltiazem CR (TIAZAC,TAZTIA XT) 240 mg 24 hr capsule Take 1 capsule by mouth once daily. insulin glargine (LANTUS SOLOSTAR) 100 unit/mL (3 mL) inpn Inject 4 Units subcutaneously daily at bedtime. insulin needles, DISPOSABLE, (PEN NEEDLE) 31 gauge x 5/16 ndle Use one needle per dose. 4 x per day. Lancets lancets Test blood sugar(s) 4-6 times daily. Dx: 250.0. Insulin: Yes blood sugar diagnostic (BLOOD GLUCOSE TEST) test strip Test blood sugar(s) 4-6 times daily. Dx: 250.0. Insulin: Yes Insulin [place], Disposable, (UNIFINE PENTIPS) 29 gauge x 1/2 ndle 1 Each once daily. blood sugar diagnostic (FREESTYLE LITE STRIPS) test strip Test blood sugar(s) 4 times daily. Dx: E11.9. Insulin: Yes ALBUTEROL, BULK, MISC Blood-Glucose Meter (FREESTYLE LITE METER) monitoring kit Freestyle LITE Meter Kit - No current facility-administered medications for this visit. 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 Social History Main Topics Smoking status: Former Smoker Packs/day: 0.50 Years: 20.00 Types: Cigarettes Quit date: 02/18/2015 Smokeless status: Never Used Comment: 2 cigs per day Alcohol use: No Drug use: No Sexual activity: Not Currently Partners with: Male Other Topics Concern Service No Blood Transfusions Yes Comment:last 2014 FAMILY HISTORY: FAMILY HISTORY Problem Relation Age of Onset - Arthritis Mother - Asthma Mother - Diabetes Mother - Stroke Mother - Ovarian cancer Mother - Asthma Father - Diabetes Father - Heart Father - Lipids Father - Cervical Cancer Sister - Diabetes Paternal Grandmother - Heart Paternal Grandmother REVIEW OF SYMPTOMS: The review of systems data was entered by the nurse and reviewed by me There are no exam notes on file for this visit. PHYSICAL EXAMINATION: General: The patient is 41 year old female, well nourished, well hydrated in no acute distress. The patient is oriented to time, place, and person. VITALS: Blood pressure 130/72, pulse 80, resp. rate 18, height 167.6 cm (5' 6), weight 87.5 kg (193 lb), last menstrual period 09/16/2013. Body mass index is 31.15 kg/(m2). HEENT: Normal cephalic, ataumatic, pupils are equally round, sclera are anicteric, mucous membranes are moist, oropharynx is clear. Neck has no masses, asymmetry or lymphadenopathy. Thyroid is unremarkable. Respiratory: Clear to auscultation and percussion. Normal respiratory excursion and pattern. Cardiac: Examination is regular rate and rhythm. Abdominal exam: Soft, nontender, with no palpable masses. No hepatosplenomegaly. No palpable hernias. Esmer bag in place with watery blood-tinged stool Rectal exam: exam deferred Extremities: no clubbing, cyanosis or edema. No adenopathy. Other: LABORATORY VALUES: As Noted WBC (k/uL) Date Value 06/03/2015 9.62 RBC (m/uL) Date Value 06/03/2015 3.31 (L) Hemoglobin (g/dL) Date Value 06/03/2015 10.4 (L) Hematocrit (%) Date Value 06/03/2015 29.5 (L) MCV (fL) Date Value 06/03/2015 89.1 MCH (pG) Date Value 06/03/2015 31.4 MCHC (g/dL) Date Value 06/03/2015 35.3 RDW-CV (%) Date Value 06/03/2015 13.9 Platelet Count (k/uL) Date Value 06/03/2015 269 MPV (fL) Date Value 06/03/2015 9.1 RADIOLOGIC STUDIES: As Noted Assessment IMPRESSION: Bloody watery stool, recent history of C. difficile colitis PLAN: I plan to perform lower endoscopy. We discussed the risks and benefits of the planned endoscopy. I have informed the patient that complications can occur including failure to complete the endoscopy and perforation. The patient had the opportunity to ask questions concerning the planned endoscopy. My staff has also explained the procedure to the patient in understandable terms and has given the patient printed material concerning the procedure. The patient freely consents to surgery. I plan to use golytely bowel preparation for endoscopy The patient has medical comorbidities for which I plan to perform the procedure under monitored anesthetic care. I plan to obtain stool studies today. Diagnoses: (A04.72) C. difficile diarrhea (primary encounter diagnosis) (K92.1) Hematochezia My findings have been communicated to Naeem via shared medical record. This note will be forwarded to Ric Mccrary MD. Return to Clinic: The patient is instructed to follow-up with me after the testing has been completed. Petty Zhang MD CNOV Observed: 11/02/2017 Status: COMPLETED Source: [place] 3:10 PM [facility] REPOSITORY Office Visit (GENSWS) KOURTNEY REZA ([id number]) 1975 F TRN Date Time Provider Department 11/02/17 3:10 PM PETTY ZHANG During your visit today, we recorded the following information about you: Pulse Respiration Blood pressure Weight 80/minute 18/minute 130/72 87.5 kg Height 1.676 m Petty Zhang MD 11/02/2017 5:44 PM Signed HISTORY AND PHYSICAL Kourtney Reza 1975 REFERRING PHYSICIAN: Reji Hartley (Pa-C* CHIEF COMPLAINT: Rectal Problem HPI: The patient is a 41 year old female referred for endoscopy. Kourtney notes bloody stools per her stoma bag for the past few days with increased stool output/diarrhea, but basically diarrhea for the past 3 weeks. The patient has a complex history of complicated requiring debridement down to the gluteal area and necrotizing anal sphincter. I performed a loop colostomy in July. The patient presented on October 23 due to diarrhea and was found to have C. difficile in her stool. She was started on oral vancomycin and discharged. She had been doing reasonably well but then started noticing fever on November 01, and then up to 13 significantly liquidy stools into the stoma bag with now some pink to blood-tinged fluid. She denies significant abdominal pain. She notes no significant fever today. The patient notes no history of upper GI complaints. Kourtney has undergone prior endoscopy. I performed colonoscopy in the fall which demonstrated possibly lymphocytic colitis with increased intraepithelial lymphocytes in the terminal ileal biopsy . When I had seen her for diarrhea of unknown origin at that time for a normal-appearing terminal ileum and colon. The patient is being seen by me today at the request of Reji Hartley (Ariel-C* my opinion and advice regarding recent C. difficile colitis, now with increased stooling and bloody stomal output. PAST MEDICAL HISTORY Diagnosis Date - Anemia of chronic disease - Anxiety - Cardiomyopathy ([facility]) last echo 08/07 showed normal LVF - CHF (congestive heart failure) ([facility]) - COPD (chronic obstructive pulmonary disease) ([facility]) - DM (diabetes mellitus) ([facility]) type 2, approx age22 - ESRD on dialysis ([facility]) - Hirsutism - Hypertension - Necrotizing fasciitis ([facility]) 2009 due to wound of abdomen and MRSA - GABRIEL (obstructive sleep apnea) no CPAP usage - Other congenital anomaly of uterus bicornuate - Proteinuria - PVD (peripheral vascular disease) ([facility]) - Retinopathy due to secondary diabetes mellitus ([facility]) PAST SURGICAL HISTORY Procedure Laterality Date - APPENDECTOMY 06/2013 - AV FUSE, UPPR ARM, CEPHALIC Left 05-05-15 radial--cephalic - BALLN ANGIOPLASTY,PERC VENOUS Left 07-23-15 AV fistula - DELIVERY ONLY 2008 x 1 - COLONOSCOP W/ OR W/O [facility] SPEC 05/22/2017 Colonoscopy - path - lymphocytic colitis - DANDamp;C, DIAG AND/OR THERAPEUTIC x3 Dilation ANDamp; curettage - INS TUNNEL CVC W/O PORT ANDgt;=5 Right 07-10-15 port acath removed - LAP, SURG ENTEROLYSIS 10/10/13 laparoscopic lysis of adhesions - PAST SURGICAL HISTORY OF 2009 seven surgeries to debride necrotizing fasciitis, at c section site. - PAST SURGICAL HISTORY OF 2008 or 2009 hernia and tummy tuck. - PAST SURGICAL HISTORY OF pda closure at age 2 weeks. - PAST SURGICAL HISTORY OF Fracture repair left ankle, with removal of hardware. - PAST SURGICAL HISTORY OF 1977 Tumor removed from base of neck- benign - PAST SURGICAL HISTORY OF Cyst removed from chest - PAST SURGICAL HISTORY OF Cyst removed from Chest ANDamp; Coccyx area - REMOVAL CECILIO CVC W/O PUMP Right 09/09/15 Removal right IJ catheter - TUBAL LIGATION, 12/2008 at time of c/section - VAG HYST,RMV TUBE/OVARY 10/10/13 LAVH/RSO, left salpingectomy Current Outpatient Prescriptions: vancomycin (VANCOCIN) 125 mg capsule Take 1 capsule by mouth every 6 hours. ALPRAZolam (XANAX) 0.5 mg tablet Take 1 tablet by mouth as needed for up to 90 days. Take one tablet by mouth prior to dialysis as needed for anxiety. Miralax / Gatorade Prep Miralax 238 gm bottle, (2) 32 oz bottles of Gatorade, ANDamp; 4 Dulcolax 5 mg tabs- as directed per instructions lisinopril (ZESTRIL, PRINIVIL) 20 mg tablet Take 20 mg by mouth once daily. budesonide, enteric coated (ENTOCORT EC) 3 mg 24 hr capsule Take 2 capsules by mouth once daily. FLUoxetine HCl (PROZAC) 40 mg capsule Take 1 capsule by mouth once daily. aspirin, enteric coated (ASPIRIN, ENTERIC COATED) 81 mg EC tablet Take 1 tablet by mouth once daily. nystatin (MYCOSTATIN) powder Apply 1 application to affected area three times daily. promethazine (PHENERGAN) 25 mg tablet TAKE 1 TABLET BY MOUTH EVERY 6 HOURS NEEDED FOR NAUSEA/VOMITING. carvedilol (COREG) 25 mg tablet Take 1 tablet by mouth twice daily with meals. atorvastatin (LIPITOR) 20 mg tablet Take 1 tablet by mouth daily at bedtime. For cholesterol. ergocalciferol, vitamin D2, (VITAMIN D) 50,000 unit capsule Take 1 capsule by mouth once each week. carbonyl iron (FEOSOL) 45 mg tab Take 1 tablet by mouth three times daily with meals. amLODIPine (NORVASC) 10 mg tablet Take 1 tablet by mouth once daily. insulin aspart (NOVOLOG FLEXPEN) 100 unit/mL inpn 10 units three times a day with meals diltiazem CR (TIAZAC,TAZTIA XT) 240 mg 24 hr capsule Take 1 capsule by mouth once daily. insulin glargine (LANTUS SOLOSTAR) 100 unit/mL (3 mL) inpn Inject 4 Units subcutaneously daily at bedtime. insulin needles, DISPOSABLE, (PEN NEEDLE) 31 gauge x 5/16ANDquot; ndle Use one needle per dose. 4 x per day. Lancets lancets Test blood sugar(s) 4-6 times daily. Dx: 250.0. Insulin: Yes blood sugar diagnostic (BLOOD GLUCOSE TEST) test strip Test blood sugar(s) 4-6 times daily. Dx: 250.0. Insulin: Yes Insulin [place], Disposable, (UNIFINE PENTIPS) 29 gauge x 1/2ANDquot; ndle 1 Each once daily. blood sugar diagnostic (FREESTYLE LITE STRIPS) test strip Test blood sugar(s) 4 times daily. Dx: E11.9. Insulin: Yes ALBUTEROL, BULK, MISC Blood-Glucose Meter (FREESTYLE LITE METER) monitoring kit Freestyle LITE Meter Kit - No current facility-administered medications for this visit. 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 Social History Main Topics Smoking status: Former Smoker Packs/day: 0.50 Years: 20.00 Types: Cigarettes Quit date: 02/18/2015 Smokeless status: Never Used Comment: 2 cigs per day Alcohol use: No Drug use: No Sexual activity: Not Currently Partners with: Male Other Topics Concern Service No Blood Transfusions Yes Comment:last one 2014 FAMILY HISTORY: FAMILY HISTORY Problem Relation Age of Onset - Arthritis Mother - Asthma Mother - Diabetes Mother - Stroke Mother - Ovarian cancer Mother - Asthma Father - Diabetes Father - Heart Father - Lipids Father - Cervical Cancer Sister - Diabetes Paternal Grandmother - Heart Paternal Grandmother REVIEW OF SYMPTOMS: The review of systems data was entered by the nurse and reviewed by me There are no exam notes on file for this visit. PHYSICAL EXAMINATION: General: The patient is 41 year old female, well nourished, well hydrated in no acute distress. The patient is oriented to time, place, and person. VITALS: Blood pressure 130/72, pulse 80, resp. rate 18, height 167.6 cm (5' 6ANDquot;), weight 87.5 kg (193 lb), last menstrual period 09/16/2013. Body mass index is 31.15 kg/(m2). HEENT: Normal cephalic, ataumatic, pupils are equally round, sclera are anicteric, mucous membranes are moist, oropharynx is clear. Neck has no masses, asymmetry or lymphadenopathy. Thyroid is unremarkable. Respiratory: Clear to auscultation and percussion. Normal respiratory excursion and pattern. Cardiac: Examination is regular rate and rhythm. Abdominal exam: Soft, nontender, with no palpable masses. No hepatosplenomegaly. No palpable hernias. Esmer bag in place with watery blood-tinged stool Rectal exam: exam deferred Extremities: no clubbing, cyanosis or edema. No adenopathy. Other: LABORATORY VALUES: As Noted WBC (k/uL) Date Value 06/03/2015 9.62 RBC (m/uL) Date Value 06/03/2015 3.31 (L) Hemoglobin (g/dL) Date Value 06/03/2015 10.4 (L) Hematocrit (%) Date Value 06/03/2015 29.5 (L) MCV (fL) Date Value 06/03/2015 89.1 MCH (pG) Date Value 06/03/2015 31.4 MCHC (g/dL) Date Value 06/03/2015 35.3 RDW-CV (%) Date Value 06/03/2015 13.9 Platelet Count (k/uL) Date Value 06/03/2015 269 MPV (fL) Date Value 06/03/2015 9.1 RADIOLOGIC STUDIES: As Noted Assessment IMPRESSION: Bloody watery stool, recent history of C. difficile colitis PLAN: I plan to perform lower endoscopy. We discussed the risks and benefits of the planned endoscopy. I have informed the patient that complications can occur including failure to complete the endoscopy and perforation. The patient had the opportunity to ask questions concerning the planned endoscopy. My staff has also explained the procedure to the patient in understandable terms and has given the patient printed material concerning the procedure. The patient freely consents to surgery. I plan to use golytely bowel preparation for endoscopy The patient has medical comorbidities for which I plan to perform the procedure under monitored anesthetic care. I plan to obtain stool studies today. Diagnoses: (A04.72) C. difficile diarrhea (primary encounter diagnosis) (K92.1) Hematochezia My findings have been communicated to Naeem via shared medical record. This note will be forwarded to Ric Mccrary MD. Return to Clinic: The patient is instructed to follow-up with me after the testing has been completed. Petty Zhang MD Referring Provider: Reji HARTLEY (PA-C) [[id number]] Allergies As of Date: 11/02/2017 Noted Allergy Reaction LATEX 01/20/2006 2 - Rash NSAIDS (NON-STEROIDAL ANTI-INFLAM*05/12/2017 15 - Contraindication- Medical [place]* PERCOCET (OXYCODONE-ACETAMINOPHEN)10/28/2013 1 - Mental Status Change REGLAN (METOCLOPRAMIDE) 07/03/2013 11 - Vomiting Date Reviewed: 11/02/2017 Reviewed by: Trinidad Linton LPN - Fully Assessed Reason for Visit: Rectal Problem [93] Primary Visit Diagnosis:C. difficile diarrhea [A04.72] Other Visit Diagnosis:Hematochezia [K92.1] Order(s):C. DIFFICILE PCR [SQCDPCR] Order #: [id number] OVA + PARA MICROSCOPIC [SQOVAP] Order #: [id number] FECAL LACTOFERRIN/LEUKOCYTES [SQFECWBC] Order #: [id number] STOOL CULTURE/EIA [SQSTOCUL] Order #: [id number] FUTURE ROSARIO PT ED DIGESTIVE DISEASES [[id number]] Order #: [id number]. #:[id number]: 1 Miralax / Gatorade PrepMiralax 238 gm bottle, (2) 32 oz bottles of Gatorade, AND 4 Dulcolax 5 mg tabs- as directed per instructionsDisp: Rfl: COLONOSCOPY - DIAGNOSTIC [[id number]] Order #: [id number] FUTURE Prescriptions as of 11/02/2017 Sig: VANCOMYCIN 125 MG CAPSULE Take 1 capsule by mouth every* ALPRAZOLAM 0.5 MG TABLET Take 1 tablet by mouth as nee* COMPOUNDED PRESCRIPTION Miralax 238 gm bottle, (2) 32* LISINOPRIL 20 MG TABLET Take 20 mg by mouth once naman* BUDESONIDE DR - ER 3 MG CAPSU* Take 2 capsules by mouth once* FLUOXETINE 40 MG CAPSULE Take 1 capsule by mouth once * ASPIRIN 81 MG TABLET,DELAYED * Take 1 tablet by mouth once d* NYSTATIN 100,000 UNIT/GRAM TO* Apply 1 application to affect* PROMETHAZINE 25 MG TABLET TAKE 1 TABLET BY MOUTH EVERY * CARVEDILOL 25 MG TABLET Take 1 tablet by mouth twice * ATORVASTATIN 20 MG TABLET Take 1 tablet by mouth daily * ERGOCALCIFEROL (VITAMIN D2) 5* Take 1 capsule by mouth once * IRON, CARBONYL 45 MG TABLET Take 1 tablet by mouth three * AMLODIPINE 10 MG TABLET Take 1 tablet by mouth once d* INSULIN ASPART U-100 100 UNI* 10 units three times a day wi* DILTIAZEM CR 240 MG CAP Take 1 capsule by mouth once * INSULIN GLARGINE (U-100) 100 * Inject 4 Units subcutaneously* PEN NEEDLE, DIABETIC 31 GAUGE* Use one needle per dose. 4 x * LANCETS Test blood sugar(s) 4- 6 times* BLOOD SUGAR DIAGNOSTIC STRIPS Test blood sugar(s) 4- 6 times* PEN NEEDLE, DIABETIC 29 GAUGE* 1 Each once daily. BLOOD SUGAR DIAGNOSTIC STRIPS Test blood sugar(s) 4 times d* ALBUTEROL (BULK) [facility] [place] BLOOD-GLUCOSE METER KIT Freestyle LITE Meter Kit - Problem List As Of Date 11/02/2017 Noted Resolved VULVAL ABSCESS [N76.4] INVALID FOR*10/28/2013 Retinopathy due to secondary diabetes mellitus * Proteinuria [R80.9] Renal insufficiency [N28.9] 03/06/2017 Neuropathy [G62.9] INVALID FOR* HTN (hypertension) [I10] INVALID FOR* Anxiety [F41.9] INVALID FOR* More... Diabetes mellitus [E11.9] INVALID FOR* Cardiomyopathy, nonischemic [I42.8] INVALID FOR* Iron deficiency [E61.1] INVALID FOR* Anemia [D64.9] INVALID FOR* Scar condition and fibrosis of skin: Atrophic D*INVALID FOR* Rosacea [L71.9] INVALID FOR* Other acne [L70.8] INVALID FOR* Telangiectasia [I78.1] INVALID FOR* Irritant dermatitis [L24.9] INVALID FOR* Nodulocystic acne [L70.0] INVALID FOR* Dysfunctional uterine bleeding [N93.8] INVALID FOR* Vitamin D deficiency [E55.9] INVALID FOR* Asthma [J45.909] INVALID FOR* Obesity [E66.9] INVALID FOR* CHF (congestive heart failure) ([facility]) [I50.9] INVALID FOR* Chronic renal failure, stage 5 ([facility]) [N18.5] INVALID FOR* More... Complication of dialysis access insertion ([facility])*INVALID FOR* GABRIEL (obstructive sleep apnea) [G47.33] INVALID FOR* More... Diarrhea, functional [K59.1] INVALID FOR* More... Bloody stools [K92.1] INVALID FOR* More... C. difficile diarrhea [A04.72] INVALID FOR* More... Prescriptions ordered this encounter Disp Refills Start End COMPOUNDED PRESCRIPTION 11/02/2017 Class: OTC Sig: Miralax 238 gm bottle, (2) 32 oz bottles of Gatorade, AND 4 Dulcolax 5 mg tabs- as directed per instructions Encounter Status:Closed by PETTY ZHANG MD on 11/02/17 [facility] CBC AND DIFF Collected: 11/02/2017 Status: F Source: [place] 11:50 AM [facility] REPOSITORY TYPE CODE TESTS RESULT OUT OF REFERENCE UNITS RANGE LAB WWBC 3.70-11.00 k/uL [place] WBC 6.70 LAB WRBC 3.90-5.20 m/uL Low [place] RBC 2.60 LAB WHGB 11.5-15.5 g/dL Low [place] Hemoglobin 8.5 LAB WHCT 36.0-46.0 % Low [place] Hematocrit 26.0 LAB WMCV 80.0-100.0 fL [place] MCV 100.0 LAB WMCH 26.0-34.0 pg [place] MCH 32.7 LAB WMCHC 30.5-36.0 g/dL [place] MCHC 32.7 LAB WRDW 11.5-15.0 % [place] RDW 14.5 LAB WPLT 150-400 k/uL Low [place] Platelet Cnt 135 LAB WMPV 9.0-12.7 fL Low [place] MPV 8.1 Result Comment: Test performed at: [facility] [address] [place] [address]. LAB WNEUT % [facility] Neut% 68.8 LAB WLYMP % [facility] Lymp% 20.3 LAB WMONOC % [facility] [place]alding% 3.3 LAB WEOS % [facility] Eos% 7.4 LAB WBASO % [place] Baso% 0.2 LAB WANEUT 1.45-7.5 k/uL 0 [place] Abs Neut 4.40 LAB WALYMP 1.00-4.0 k/uL 0 [place] Abs Lymp 1.30 LAB WAMONO <0.87 k/uL [facility] Abs [place] 0.21 LAB WAEOS <0.46 k/uL High [place] Abs Eos 0.47 LAB WABASO <0.11 k/uL [place] Abs Baso <0.03 Performed By: #### WCBCDF #### [facility] [address] [place], [place] [address] COMP METABOLIC PANEL Collected: 11/02/2017 Status: F Source: [place] 11:50 AM [facility] REPOSITORY TYPE CODE TESTS RESULT OUT OF REFERENCE UNITS RANGE LAB TP 6.3-8.0 g/dL Protein, Total 7.9 LAB ALB 3.9-4.9 g/dL Low Albumin 3.4 LAB CA 8.5-10.2 mg/dL Low Calcium, Total 8.4 LAB TBIL 0.2-1.3 mg/dL Bilirubin, Total 0.2 LAB ALKP 32-117 U/L Alkaline Phosphatase 93 LAB AST 13-35 U/L AST 23 LAB GLU 74-99 mg/dL Glucose High 136 Result Comment: The [place] Diabetes Association (ADA) provides guidance for cutoff values for fasting glucose and random glucose. The ADA defines fasting as no caloric intake for at least 8 hours. Fas ting plasma glucose results between 100 to 125 mg/dL indicate increased risk for diabetes (prediabetes). Fasting plasma glucose results greater than or equal to 126 mg/dL meet the criteria for diagnosis of diabetes. In the absence of unequivocal hyperglycemia, results should be confirmed by repeat testing. In a patient with classic symptoms of hyperglycemia or hyperglycemic crisis, random plasma glucose results greater than or equal to 200 mg/dL meet the criteria for diagnosis of diabetes. Reference: Standards of Medical Care in Diabetes 2016, [place] Diabetes Association. Diabetes Care. 2016.39(Suppl 1). LAB BUN 7-21 mg/dL BUN High 46 LAB CRET 0.58-0.96 mg/dL Creatinine High 5.95 LAB NA 136-144 mmol/L Sodium 138 LAB K 3.7-5.1 mmol/L Potassium 5.0 LAB CL 97-105 mmol/L Chloride 103 LAB CO2 22-30 mmol/L Low CO2 20 LAB AGAP 9-18 mmol/L Anion Gap 15 LAB ALT 7-38 U/L ALT 35 LAB GFRAA eGFR- 9 Amer. LAB GFRNAA . eGFR-All Other Races 8 Result Comment: eGFR (Estimated GFR) Units of measure: mL/min/1.73 meters squared eGFR is derived from the reexpressed MDRD Study equation using the following parameters: serum creatinine, age, gender and race. The creatinine assay has been calibrated to be traceable to IDMS. An eGFR <60 mL/min/1.73m2 for >3 months is consistent with chronic kidney disease. Refer to KDOQI guidelines for clinical interpretation. In patients with unstable renal function, e.g. those with acute kidney injury, the eGFR may not accurately reflect actual GFR. Performed By: #### CMP, IRON #### [facility] [address] [place] [id number] IRON AND TIBC Collected: 11/02/2017 Status: F Source: [place] 11:50 AM [facility] REPOSITORY TYPE CODE TESTS RESULT OUT OF REFERENCE UNITS RANGE LAB IRN 41-186 ug/dL Iron 89 LAB TIBC 232-386 ug/dL Low TIBC 161 LAB SAT 15-57 % Transferrin Saturatn 55 Performed By: #### CMP, IRON #### [facility] [address] [place], [place] [address] PROGRESS Observed: 11/02/2017 Status: COMPLETED Source: [place] 11:08 AM [facility] REPOSITORY HNO ID: [id number] Author: Reji Dumas (Ana Paula) Naeem Service: (none) Author Type: Physician Fast [employer] 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 On 08/15/17 she had extensive debridement of pilonidal cyst and ulcers extending into the gluteal muscle with necrotizing anal sphincter muscle involvement, done by Dr. Munroe. She had complications with wound management following and it was suggested she have a temporary colostomy to avoid contamination of the wound which was done on 08/17/17. She was transferred to [facility] rehabilitation facility in [place]. Patient at that time was treated with metronidazole, ceftaz a dime and vancomycin which were concluded on 09/01/17. Patient had internal bleeding with hemoglobin drop as far as 5.2 and she was transfused with 7 units of packed red blood cells in the hospital. Hemoglobin was then checked on 09/04/17 up to 8.3. Patient was then transferred back to [facility] on 09/05/17 for continued wound care and dialysis.She was transferred to [facility] 2 weeks later and continued wound management there with wound vac treatment. I have no records from that point but she says was [facility] From there [facility] with C.Diff diarrhea and is currently on oral Vancomycin. Appetite has been normal. Yesterday temp 100.1. Doesn't feel any different from usual except she has to empty colostomy bag about 13 times yesterday with profuse drainage that became bloody. She is now actively draining pink to red fluid constantly. No change in wound discharge. No urinary or vaginal sx. No nausea or vomiting. Asking for nerve medication. Was on Ativan. Dr. Martinez and Dr. Avendano said they would take over needs for anxiety during dialysis. Now they are asking to return rx to PCP. OARRS shows no diversion. HISTORIES FAMILY HISTORY Problem Relation Age of Onset - Arthritis Mother - Asthma Mother - Diabetes Mother - Stroke Mother - Ovarian cancer Mother - Asthma Father - Diabetes Father - Heart Father - Lipids Father - Cervical Cancer Sister - Diabetes Paternal Grandmother - Heart Paternal Grandmother PAST MEDICAL HISTORY Diagnosis Date - Anemia of chronic disease - Anxiety - Cardiomyopathy (HCC) last echo 08/07 showed normal LVF - CHF (congestive heart failure) (HCC) - COPD (chronic obstructive pulmonary disease) (HCC) - DM (diabetes mellitus) (HCC) type 2, approx age22 - ESRD on dialysis (HCC) - Hirsutism - Hypertension - Necrotizing fasciitis (HCC) 2009 due to wound of abdomen and MRSA - GABRIEL (obstructive sleep apnea) no CPAP usage - Other congenital anomaly of uterus bicornuate - Proteinuria - PVD (peripheral vascular disease) (HCC) - 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) PAST SURGICAL HISTORY Procedure Laterality Date - APPENDECTOMY 06/2013 - AV FUSE, UPPR ARM, CEPHALIC Left 05-05-15 radial--cephalic - BALLN ANGIOPLASTY,PERC VENOUS Left 07-23-15 AV fistula - DELIVERY ONLY 2008 x 1 - COLONOSCOP W/ OR W/O BRSH SPEC 05/22/2017 Colonoscopy - path - lymphocytic colitis - DANDC, DIAG AND/OR THERAPEUTIC x3 Dilation AND curettage - INS TUNNEL CVC W/O PORT >=5 Right 07-10-15 port acath removed - LAP, SURG ENTEROLYSIS 10/10/13 laparoscopic lysis of adhesions - PAST SURGICAL HISTORY OF 2009 seven surgeries to debride necrotizing fasciitis, at c section site. - PAST SURGICAL HISTORY OF 2008 or 2009 hernia and tummy tuck. - PAST SURGICAL HISTORY OF pda closure at age 2 weeks. - PAST SURGICAL HISTORY OF Fracture repair left ankle, with removal of hardware. 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 Social History Main Topics Smoking status: Former Smoker Packs/day: 0.50 Years: 20.00 Types: Cigarettes Quit date: 02/18/2015 Smokeless status: Never Used Comment: 2 cigs per day Alcohol use: No Drug use: No Sexual activity: Not Currently Partners with: Male Other Topics Concern Service No Blood Transfusions Yes Comment:last one 2014 ACTIVE PROBLEM LIST Retinopathy Due to Secondary Diabetes Mellitus (Hcc) Proteinuria Neuropathy (Hcc) Htn (Hypertension) Anxiety Diabetes Mellitus (Hcc) Cardiomyopathy, Nonischemic (Hcc) Iron Deficiency Anemia Scar condition and fibrosis of skin: Atrophic Depresed Acne Scar of Left Distal Dorsal Nose Rosacea Other Acne Telangiectasia Irritant Dermatitis Nodulocystic Acne Dysfunctional Uterine Bleeding Vitamin D Deficiency Asthma Obesity Chf (Congestive Heart Failure) (Hcc) Chronic Renal Failure, Stage 5 (Hcc) Complication of Dialysis Access Insertion [place] (Obstructive Sleep Apnea) Diarrhea, Functional Current Outpatient Prescriptions: vancomycin (VANCOCIN) 125 mg capsule Take 1 capsule by mouth every 6 hours. Disp: Rfl: 0 lisinopril (ZESTRIL, PRINIVIL) 20 mg tablet Take 20 mg by mouth once daily. Disp: Rfl: budesonide, enteric coated (ENTOCORT EC) 3 mg 24 hr capsule Take 2 capsules by mouth once daily. Disp: 60 capsule Rfl: 0 FLUoxetine HCl (PROZAC) 40 mg capsule Take 1 capsule by mouth once daily. Disp: 90 capsule Rfl: 0 aspirin, enteric coated (ASPIRIN, ENTERIC COATED) 81 mg EC tablet Take 1 tablet by mouth once daily. Disp: 90 tablet Rfl: 0 nystatin (MYCOSTATIN) powder Apply 1 application to affected area three times daily. Disp: 1 Bottle Rfl: 1 promethazine (PHENERGAN) 25 mg tablet TAKE 1 TABLET BY MOUTH EVERY 6 HOURS NEEDED FOR NAUSEA/VOMITING. Disp: 30 tablet Rfl: 5 carvedilol (COREG) 25 mg tablet Take 1 tablet by mouth twice daily with meals. Disp: 180 tablet Rfl: 0 atorvastatin (LIPITOR) 20 mg tablet Take 1 tablet by mouth daily at bedtime. For cholesterol. Disp: 30 tablet Rfl: 5 ergocalciferol, vitamin D2, (VITAMIN D) 50,000 unit capsule Take 1 capsule by mouth once each week. Disp: 4 capsule Rfl: 5 carbonyl iron (FEOSOL) 45 mg tab Take 1 tablet by mouth three times daily with meals. Disp: 90 tablet Rfl: 1 amLODIPine (NORVASC) 10 mg tablet Take 1 tablet by mouth once daily. Disp: 90 tablet Rfl: 0 insulin aspart (NOVOLOG FLEXPEN) 100 unit/mL inpn 10 units three times a day with meals Disp: 5 Pen Rfl: 5 diltiazem CR (TIAZAC,TAZTIA XT) 240 mg 24 hr capsule Take 1 capsule by mouth once daily. Disp: 90 capsule Rfl: 0 insulin glargine (LANTUS SOLOSTAR) 100 unit/mL (3 mL) inpn Inject 4 Units subcutaneously daily at bedtime. Disp: 5 Pen Rfl: 5 insulin needles, DISPOSABLE, (PEN NEEDLE) 31 gauge x 5/16 ndle Use one needle per dose. 4 x per day. Disp: 100 Each Rfl: 11 Lancets lancets Test blood sugar(s) 4-6 times daily. Dx: 250.0. Insulin: Yes Disp: 100 Each Rfl: 11 blood sugar diagnostic (BLOOD GLUCOSE TEST) test strip Test blood sugar(s) 4-6 times daily. Dx: 250.0. Insulin: Yes Disp: 50 Strip Rfl: 11 Insulin [place], Disposable, (UNIFINE PENTIPS) 29 gauge x 1/2 ndle 1 Each once daily. Disp: 100 Each Rfl: 3 ALPRAZolam (XANAX) 0.5 mg tablet Take 1 tablet by mouth as needed. Take one tablet by mouth prior to dialysis as needed for anxiety. Disp: 30 tablet Rfl: 2 blood sugar diagnostic (FREESTYLE LITE STRIPS) test strip Test blood sugar(s) 4 times daily. Dx: E11.9. Insulin: Yes Disp: 150 Strip Rfl: 11 ALBUTEROL, BULK, MISC Disp: Rfl: Blood-Glucose Meter (FREESTYLE LITE METER) monitoring kit Freestyle LITE Meter Kit - Disp: 1 Each Rfl: 0 No current facility-administered medications for this visit. TETANUS due on 1984 MAMMOGRAM due on 2013 HBA1C due on 05/19/2017 LDL due on 11/17/2017 EXAM: BP 130/72 Pulse 80 Resp 18 Wt 87.5 kg (193 lb) LMP 09/16/2013 BMI 35.07 kg/m2 Pleasant overweight adult woman in no acute distress. Alert and oriented all spheres. Normal affect and cognition. Speech normal. No deficits to learning or comprehension. Skin warm, dry, pink to lips and nailbeds. Normal turgor. Respirations regular and unlabored. HEENT WNL. TM's clear. Nose and oropharynx free from injection or lesion. No cervical lymph nodes. Thyroid non-tender, no masses.gbcta Chest CTA. HRRR without murmur or gallop. Abd: rounded , soft, bowel sounds active throughout. No pulsatile masses. Tender upper abdomen diffusely with hyperresonant percussion. No rebound, guarding, or peritoneal signs. No masses. No organomegaly. Escalante's punch: negative. No flank pain. No inguinal or axillary lymphadenopathy. Ostomy clean, draining bright red blood actively mixed with clear intestinal drainage. Dressing not disturbed over sacrum. Extrem: no clubbing, cyanosis, edema. Extremities are warm and pink with prompt capillary refill. ASSESSMENT/PLAN: 1. Hematochezia - ICD9: 578.1, ICD10: K92.1 (primary diagnosis) Call placed to Dr. Zhang for review of ostomy: will see at today. - CBC + DIFF STAT - COMP METABOLIC PANEL - IRON + TIBC - CIARAN CBC AND DIFF 2. Anxiety - ICD9: 300.00, ICD10: F41.9 - ALPRAZOLAM 0.5 MG TABLET 3. Cellulitis, wound, post-operative, sequela - ICD9: 909.3, ICD10: T81.4XXS Under wound care with [facility] and Dr. Munroe who was notified today of concerns 4. Chronic renal failure, stage 5 (HCC) - ICD9: 585.5, ICD10: N18.5 5. Essential hypertension - ICD9: 401.9, ICD10: I10 - good control - Continue current medication(s) - COMP METABOLIC PANEL 6. C. difficile diarrhea - ICD9: 008.45, ICD10: A04.72 - CBC + DIFF 7. Type 2 diabetes mellitus with chronic kidney disease on chronic dialysis, with long-term current use of insulin (HCC) - ICD9: 250.40, 585.9, V45.11, V58.67, ICD10: E11.22, N18.6, Z99.2, Z79.4 - COMP METABOLIC PANEL 8. Low grade fever - ICD9: 780.60, ICD10: R50.9 - UA DIP B/O medication reconciliation was not possible without discharge records: petitioned. Patient does Not know if she is on budesonide ANA PAULA Akers Observed: 11/02/2017 Status: COMPLETED Source: [place] 10:40 AM [facility] REPOSITORY Office Visit (FAMPWS) KOURTNEY REZA ([id number]) 1975 F TRN Date Time Provider Department 11/02/17 10:40 AM Reji HARTLEY) ROBERTPJOSUE During your visit today, we recorded the following information about you: Pulse Respiration Blood pressure Weight 80/minute 18/minute 130/72 87.5 kg Jagjit Phillips Ma 11/02/2017 11:06 AM Signed HOSPITAL/ER FOLLOW UP: Reason for visit: Pilonidal cyst Which facility: [facility] Date of visit: 08/21/17 Treatment given: debridement by Dr Munroe Pt was transferred to [facility]. Pt had increased bleeding on 09/02/17, transferred back to [facility], losing 4 units of blood. Received transfusion. She then got transferred to [facility] for 2 weeks. [facility] [place]. Patient goes to dialysis MWF at this time Has colostomy, pt currently on a wound vac vacation and it will be replaced on 11/08/17. 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 3 times a week Patient currently having anxiety. She has trouble sitting through her dialysis, lasts about an hour. Currently being treated for C-Diff with vancomycin. Stoma is bleeding. ? Reji Hartley PA-C 11/02/2017 1:47 PM Signed 41 year old female with end-stage renal failure on dialysis over the last 2 years, type 1 diabetes mellitus with peripheral neuropathy and gastroparesis, hypertension, hyperlipidemia, tobacco dependence, morbid obesity, left ventricular diastolic function and coronary artery disease managed medically here with request to refill [place] for pain postoperatively a complex history of surgeries related to a pilonidal cyst. On 08/15/17 she had extensive debridement of pilonidal cyst and ulcers extending into the gluteal muscle with necrotizing anal sphincter muscle involvement, done by Dr. Munroe. She had complications with wound management following and it was suggested she have a temporary colostomy to avoid contamination of the wound which was done on 08/17/17. She was transferred to [facility] rehabilitation facility in [place]. Patient at that time was treated with metronidazole, ceftaz a dime and vancomycin which were concluded on 09/01/17. Patient had internal bleeding with hemoglobin drop as far as 5.2 and she was transfused with 7 units of packed red blood cells in the hospital. Hemoglobin was then checked on 09/04/17 up to 8.3. Patient was then transferred back to [facility] on 09/05/17 for continued wound care and dialysis.She was transferred to [facility] 2 weeks later and continued wound management there with wound vac treatment. I have no records from that point but she says was discharged From there [facility]19/[facility] with C.Diff diarrhea and is currently on oral Vancomycin. Appetite has been normal. Yesterday temp 100.1. Doesn't feel any different from usual except she has to empty colostomy bag about 13 times yesterday with profuse drainage that became bloody. She is now actively draining pink to red fluid constantly. No change in wound discharge. No urinary or vaginal sx. No nausea or vomiting. Asking for nerve medication. Was on Ativan. Dr. Martinez and Dr. Avendano said they would take over needs for anxiety during dialysis. Now they are asking to return rx to PCP. [facility]ARRS shows no diversion. HISTORIES FAMILY HISTORY Problem Relation Age of Onset - Arthritis Mother - Asthma Mother - Diabetes Mother - Stroke Mother - Ovarian cancer Mother - Asthma Father - Diabetes Father - Heart Father - Lipids Father - Cervical Cancer Sister - Diabetes Paternal Grandmother - Heart Paternal Grandmother PAST MEDICAL HISTORY Diagnosis Date - Anemia of chronic disease - Anxiety - Cardiomyopathy (HCC) last echo 08/07 showed normal LVF - CHF (congestive heart failure) ([facility]) - COPD (chronic obstructive pulmonary disease) (HCC) - DM (diabetes mellitus) ([facility]) type 2, approx age22 - ESRD on dialysis ([facility]) - Hirsutism - Hypertension - Necrotizing fasciitis ([facility]) 2009 due to wound of abdomen and MRSA - GABRIEL (obstructive sleep apnea) no CPAP usage - Other congenital anomaly of uterus bicornuate - Proteinuria - PVD (peripheral vascular disease) ([facility]) - Retinopathy due to secondary diabetes mellitus ([facility]) PAST SURGICAL HISTORY Procedure Laterality Date - APPENDECTOMY 06/2013 - AV FUSE, UPPR ARM, CEPHALIC Left 05-05-15 radial--cephalic - BALLN ANGIOPLASTY,PERC VENOUS Left 07-23-15 AV fistula - DELIVERY ONLY 2008 x 1 - COLONOSCOP W/ OR W/O BRSH SPEC 05/22/2017 Colonoscopy - path - lymphocytic colitis - DANDamp;C, DIAG AND/OR THERAPEUTIC x3 Dilation ANDamp; curettage - INS TUNNEL CVC W/O PORT ANDgt;=5 Right 07-10-15 port acath removed - LAP, SURG ENTEROLYSIS 10/10/13 laparoscopic lysis of adhesions - PAST SURGICAL HISTORY OF 2009 seven surgeries to debride necrotizing fasciitis, at c section site. - PAST SURGICAL HISTORY OF 2008 or 2009 hernia and tummy tuck. - PAST SURGICAL HISTORY OF pda closure at age 2 weeks. - PAST SURGICAL HISTORY OF Fracture repair left ankle, with removal of hardware. 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 Social History Main Topics Smoking status: Former Smoker Packs/day: 0.50 Years: 20.00 Types: Cigarettes Quit date: 02/18/2015 Smokeless status: Never Used Comment: 2 cigs per day Alcohol use: No Drug use: No Sexual activity: Not Currently Partners with: Male Other Topics Concern Service No Blood Transfusions Yes Comment:last one 2014 ACTIVE PROBLEM LIST Retinopathy Due to Secondary Diabetes Mellitus (Hcc) Proteinuria Neuropathy (Hcc) Htn (Hypertension) Anxiety Diabetes Mellitus (Hcc) Cardiomyopathy, Nonischemic (Hcc) Iron Deficiency Anemia Scar condition and fibrosis of skin: Atrophic Depresed Acne Scar of Left Distal Dorsal Nose Rosacea Other Acne Telangiectasia Irritant Dermatitis Nodulocystic Acne Dysfunctional Uterine Bleeding Vitamin D Deficiency Asthma Obesity Chf (Congestive Heart Failure) (Hcc) Chronic Renal Failure, Stage 5 (Hcc) Complication of Dialysis Access Insertion Gabriel (Obstructive Sleep Apnea) Diarrhea, Functional Current Outpatient Prescriptions: vancomycin (VANCOCIN) 125 mg capsule Take 1 capsule by mouth every 6 hours. Disp: Rfl: 0 lisinopril (ZESTRIL, PRINIVIL) 20 mg tablet Take 20 mg by mouth once daily. Disp: Rfl: budesonide, enteric coated (ENTOCORT EC) 3 mg 24 hr capsule Take 2 capsules by mouth once daily. Disp: 60 capsule Rfl: 0 FLUoxetine HCl (PROZAC) 40 mg capsule Take 1 capsule by mouth once daily. Disp: 90 capsule Rfl: 0 aspirin, enteric coated (ASPIRIN, ENTERIC COATED) 81 mg EC tablet Take 1 tablet by mouth once daily. Disp: 90 tablet Rfl: 0 nystatin (MYCOSTATIN) powder Apply 1 application to affected area three times daily. Disp: 1 Bottle Rfl: 1 promethazine (PHENERGAN) 25 mg tablet TAKE 1 TABLET BY MOUTH EVERY 6 HOURS NEEDED FOR NAUSEA/VOMITING. Disp: 30 tablet Rfl: 5 carvedilol (COREG) 25 mg tablet Take 1 tablet by mouth twice daily with meals. Disp: 180 tablet Rfl: 0 atorvastatin (LIPITOR) 20 mg tablet Take 1 tablet by mouth daily at bedtime. For cholesterol. Disp: 30 tablet Rfl: 5 ergocalciferol, vitamin D2, (VITAMIN D) 50,000 unit capsule Take 1 capsule by mouth once each week. Disp: 4 capsule Rfl: 5 carbonyl iron (FEOSOL) 45 mg tab Take 1 tablet by mouth three times daily with meals. Disp: 90 tablet Rfl: 1 amLODIPine (NORVASC) 10 mg tablet Take 1 tablet by mouth once daily. Disp: 90 tablet Rfl: 0 insulin aspart (NOVOLOG FLEXPEN) 100 unit/mL inpn 10 units three times a day with meals Disp: 5 Pen Rfl: 5 diltiazem CR (TIAZAC,TAZTIA XT) 240 mg 24 hr capsule Take 1 capsule by mouth once daily. Disp: 90 capsule Rfl: 0 insulin glargine (LANTUS SOLOSTAR) 100 unit/mL (3 mL) inpn Inject 4 Units subcutaneously daily at bedtime. Disp: 5 Pen Rfl: 5 insulin needles, DISPOSABLE, (PEN NEEDLE) 31 gauge x 5/16ANDquot; ndle Use one needle per dose. 4 x per day. Disp: 100 Each Rfl: 11 Lancets lancets Test blood sugar(s) 4-6 times daily. Dx: 250.0. Insulin: Yes Disp: 100 Each Rfl: 11 blood sugar diagnostic (BLOOD GLUCOSE TEST) test strip Test blood sugar(s) 4-6 times daily. Dx: 250.0. Insulin: Yes Disp: 50 Strip Rfl: 11 Insulin [place], Disposable, (UNIFINE PENTIPS) 29 gauge x 1/2ANDquot; ndle 1 Each once daily. Disp: 100 Each Rfl: 3 ALPRAZolam (XANAX) 0.5 mg tablet Take 1 tablet by mouth as needed. Take one tablet by mouth prior to dialysis as needed for anxiety. Disp: 30 tablet Rfl: 2 blood sugar diagnostic (FREESTYLE LITE STRIPS) test strip Test blood sugar(s) 4 times daily. Dx: E11.9. Insulin: Yes Disp: 150 Strip Rfl: 11 ALBUTEROL, BULK, MISC Disp: Rfl: Blood-Glucose Meter (FREESTYLE LITE METER) monitoring kit Freestyle LITE Meter Kit - Disp: 1 Each Rfl: 0 No current facility-administered medications for this visit. TETANUS due on 1984 MAMMOGRAM due on 2013 HBA1C due on 05/19/2017 LDL due on 11/17/2017 EXAM: BP 130/72 Pulse 80 Resp 18 Wt 87.5 kg (193 lb) LMP 09/16/2013 BMI 35.07 kg/m2 Pleasant overweight adult woman in no acute distress. Alert and oriented all spheres. Normal affect and cognition. Speech normal. No deficits to learning or comprehension. Skin warm, dry, pink to lips and nailbeds. Normal turgor. Respirations regular and unlabored. HEENT WNL. TM's clear. Nose and oropharynx free from injection or lesion. No cervical lymph nodes. Thyroid non-tender, no masses.gbcta Chest CTA. HRRR without murmur or gallop. Abd: rounded , soft, bowel sounds active throughout. No pulsatile masses. Tender upper abdomen diffusely with hyperresonant percussion. No rebound, guarding, or peritoneal signs. No masses. No organomegaly. Escalante's punch: negative. No flank pain. No inguinal or axillary lymphadenopathy. Ostomy clean, draining bright red blood actively mixed with clear intestinal drainage. Dressing not disturbed over sacrum. Extrem: no clubbing, cyanosis, edema. Extremities are warm and pink with prompt capillary refill. ASSESSMENT/PLAN: 1. Hematochezia - ICD9: 578.1, ICD10: K92.1 (primary diagnosis) Call placed to Dr. Zhang for review of ostomy: will see at 1p today. - CBC + DIFF STAT - COMP METABOLIC PANEL - IRON + TIBC - CI[facility]AN CBC AND DIFF 2. Anxiety - ICD9: 300.00, ICD10: F41.9 - ALPRAZOLAM 0.5 MG TABLET 3. Cellulitis, wound, post-operative, sequela - ICD9: 909.3, ICD10: T81.4XXS Under wound care with [facility] and Dr. Munroe who was notified today of concerns 4. Chronic renal failure, stage 5 (HCC) - ICD9: 585.5, ICD10: N18.5 5. Essential hypertension - ICD9: 401.9, ICD10: I10 - good control - Continue current medication(s) - COMP METABOLIC PANEL 6. C. difficile diarrhea - ICD9: 008.45, ICD10: A04.72 - CBC + DIFF 7. Type 2 diabetes mellitus with chronic kidney disease on chronic dialysis, with long-term current use of insulin (HCC) - ICD9: 250.40, 585.9, V45.11, V58.67, ICD10: E11.22, N18.6, Z99.2, Z79.4 - COMP METABOLIC PANEL 8. Low grade fever - ICD9: 780.60, ICD10: R50.9 - UA DIP B/O medication reconciliation was not possible without discharge records: petitioned. Patient does Not know if she is on budesonide M Piter Hartley PA-C Referring Provider: SELF [[id number]] Allergies As of Date: 11/02/2017 Noted Allergy Reaction LATEX 01/20/2006 2 - Rash NSAIDS (NON-STEROIDAL ANTI-INFLAM*05/12/2017 15 - Contraindication- [facility] [place]* PERCOCET (OXYCODONE-ACETAMINOPHEN)10/28/2013 1 - Mental Status Change REGLAN (METOCLOPRAMIDE) 07/03/2013 11 - Vomiting Date Reviewed: 11/02/2017 Reviewed by: Trinidad Linton LPN - Fully Assessed Reason for Visit: Hospital Follow Up [177] Primary Visit Diagnosis:Hematochezia [K92.1] Other Visit Diagnoses:Anxiety [F41.9] Cellulitis, wound, post-operative, sequela [T81.4XXS] Chronic renal failure, stage 5 (HCC) [N18.5] Essential hypertension [I10] C. difficile diarrhea [A04.72] Type 2 diabetes mellitus with chronic kidney disease on chronic dialysis, with long-term current use of insulin (HCC) [E11.22, N18.6, Z99.2, Z79.4] Low grade fever [R50.9] Order(s):ALPRAZolam (XANAX) 0.5 mg tabletTake 1 tablet by mouth as needed for up to 90 days. Take one tablet by mouth prior to dialysis as needed for anxiety.Disp: 30 tabletRfl: 2 CBC + DIFF [SQCBCDIF] Order #: [id number] FUTURE COMP METABOLIC PANEL [SQCMP] Order #: [id number] FUTURE UA DIP B/O [9615010] Order #: [id number] IRON + TIBC [SQIRON] Order #: [id number] FUTURE CIARAN CBC AND DIFF [SQWCBCDF] Order #: [id number] FUTURE Prescriptions as of 11/02/2017 Sig: VANCOMYCIN 125 MG CAPSULE Take 1 capsule by mouth every* LISINOPRIL 20 MG TABLET Take 20 mg by mouth once naman* BUDESONIDE DR - ER 3 MG CAPSU* Take 2 capsules by mouth once* FLUOXETINE 40 MG CAPSULE Take 1 capsule by mouth once * ASPIRIN 81 MG TABLET,DELAYED * Take 1 tablet by mouth once d* NYSTATIN 100,000 UNIT/GRAM TO* Apply 1 application to affect* PROMETHAZINE 25 MG TABLET TAKE 1 TABLET BY MOUTH EVERY * CARVEDILOL 25 MG TABLET Take 1 tablet by mouth twice * ATORVASTATIN 20 MG TABLET Take 1 tablet by mouth daily * ERGOCALCIFEROL (VITAMIN D2) 5* Take 1 capsule by mouth once * IRON, CARBONYL 45 MG TABLET Take 1 tablet by mouth three * AMLODIPINE 10 MG TABLET Take 1 tablet by mouth once d* INSULIN ASPART U-100 100 UNI* 10 units three times a day wi* DILTIAZEM CR 240 MG CAP Take 1 capsule by mouth once * INSULIN GLARGINE (U-100) 100 * Inject 4 Units subcutaneously* ALPRAZOLAM 0.5 MG TABLET Take 1 tablet by mouth as nee* PEN NEEDLE, DIABETIC 31 GAUGE* Use one needle per dose. 4 x * LANCETS Test blood sugar(s) 4- 6 times* BLOOD SUGAR DIAGNOSTIC STRIPS Test blood sugar(s) 4- 6 times* PEN NEEDLE, DIABETIC 29 GAUGE* 1 Each once daily. BLOOD SUGAR DIAGNOSTIC STRIPS Test blood sugar(s) 4 times d* ALBUTEROL (BULK) [facility] BLOOD-GLUCOSE METER KIT Freestyle LITE Meter Kit - Medication notes this encounter VANCOMYCIN 125 MG CAPSULE >> Jagjit Phillips Ma 11/02/2017 10:46 AM >> JAGJIT PHILLIPS MA Lyndsey Nov 02, 2017 10:46 AM Received from: External Pharmacy Received Sig: TAKE ONE CAPSULE BY MOUTH EVERY 6 HOURS Problem List As Of Date 11/02/2017 Noted Resolved VULVAL ABSCESS [N76.4] INVALID FOR*10/28/2013 Retinopathy due to secondary diabetes mellitus * Proteinuria [R80.9] Renal insufficiency [N28.9] 03/06/2017 Neuropathy [G62.9] INVALID FOR* HTN (hypertension) [I10] INVALID FOR* Anxiety [F41.9] INVALID FOR* More... Diabetes mellitus [E11.9] INVALID FOR* Cardiomyopathy, nonischemic [I42.8] INVALID FOR* Iron deficiency [E61.1] INVALID FOR* Anemia [D64.9] INVALID FOR* Scar condition and fibrosis of skin: Atrophic D*INVALID FOR* Rosacea [L71.9] INVALID FOR* Other acne [L70.8] INVALID FOR* Telangiectasia [I78.1] INVALID FOR* Irritant dermatitis [L24.9] INVALID FOR* Nodulocystic acne [L70.0] INVALID FOR* Dysfunctional uterine bleeding [N93.8] INVALID FOR* Vitamin D deficiency [E55.9] INVALID FOR* Asthma [J45.909] INVALID FOR* Obesity [E66.9] INVALID FOR* CHF (congestive heart failure) (HCC) [I50.9] INVALID FOR* Chronic renal failure, stage 5 (HCC) [N18.5] INVALID FOR* More... Complication of dialysis access insertion (HCC)*INVALID FOR* GABRIEL (obstructive sleep apnea) [G47.33] INVALID FOR* More... Diarrhea, functional [K59.1] INVALID FOR* More... Bloody stools [K92.1] INVALID FOR* More... C. difficile diarrhea [A04.72] INVALID FOR* More... Visit Notes: >> Jagjit Phillips Ma Lyndsey Nov 02, 2017 10:49 AM Status: Signed HOSPITAL/ER FOLLOW UP: Reason for visit: Pilonidal cyst Which facility: [facility] Date of visit: 08/21/17 Treatment given: debridement by Dr Munroe Pt was transferred to [facility]. Pt had increased bleeding on 09/02/17, transferred back to [facility], losing 4 units of blood. Received transfusion. She then got transferred to [facility] for 2 weeks. [facility] [place]. Patient goes to dialysis MWF at this time Has colostomy, pt currently on a wound vac vacation and it will be replaced on 11/08/17. 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 3 times a week Patient currently having anxiety. She has trouble sitting through her dialysis, lasts about an hour. Currently being treated for C-Diff with vancomycin. Stoma is bleeding. ? Prescriptions ordered this encounter Disp Refills Start End ALPRAZOLAM 0.5 MG TABLET 30 t* 2 11/02/2017 01/31/2018 Class: Print RX Route: ORAL Sig: Take 1 tablet by mouth as needed for up to 90 days. Take one tablet by mouth prior to dialysis as needed for anxiety. Medications Discontinued During This Encounter ALPRAZolam (XANAX) 0.5 mg tablet 30 t* 2 06/29/2017 11/02/2017 Class: Print RX Cmt: Refill only monthly Route: ORAL Sig: Take 1 tablet by mouth as needed. Take one tablet by mouth prior to dialysis as needed for anxiety. Disc: Reason for discontinue is not on file. Encounter Status:Closed by Reji HARTLEY PA-C on 11/02/17 EMERGENCY DEPARTMENT Observed: 11/01/2017 Status: F Source: [place] SUMMARY 3:08 AM [facility] REPOSITORY [facility] Medical Records Department [address] [place] [address] Emergency Department Summary 10/31/17 1558 MR#: [id number] Acct: [id number] Name: KOURTNEY REZA Rep #: [id number] : 1975 41 From: Anila Bartlett MD PCP: Ric Mccrary MD Status: DEP ER - ER Visit Summary Date of Service: 10/31/17 Chief Complaint: Shortness of breath History of Present Illness: The patient is a 41 F who was at dialysis today. Patient states she developed back pain between her shoulder blades and felt short of breath. She had pain with deep breath and felt like she was not getting enough air in. She does report a mild cough with yellow sputum production. She reports having chills at home the last few days but no fever. Patient was recently hospitalized for an enlarged pancreas and C. difficile. Physical Examination: Vital signs are unremarkable. Pulse ox is 100% on room air. Patient's lying on her side in the bed no acute distress. She speaking full sentences. Head neck examination is grossly unremarkable. Heart is regular rate and rhythm. Lung sounds are clear with good air movement throughout. Abdomen is soft and nontender. Back examination was reducible tenderness in the mid thoracic paraspinal muscles. No overlying skin changes noted. Lower external examination reveals no edema. She has strong distal pulses. Test Results: Two-view chest x-ray reveals no focal infiltrate. EKG is sinus at 73. There is some mild lateral T-wave flattening noted. No ST change. CBC reveals a normal white count with hemoglobin of 8.2 and platelet count of 127,000. Chemistry studies reveal potassium 3.4 and glucose of 263. BUN is 36 and creatinine is 5.02. Troponin is less than 0.02. Emergency Department Course and Treatment: Patient was given a small dose of morphine, Zofran, and 0.5 mg p.o. Ativan. On repeat evaluation she does feel improved. She is easily moving around in the room. I believe her pain is musculoskeletal in nature. She is requesting to be discharged to home. Treatment Plan: [] Disposition: Discharge Impression: Musculoskeletal back pain This note was generated with [employer] dictation software. It may contain incorrect words, spelling, and punctuation that were not noted in review of the chart prior to signing ED Disposition - Plan for ED Patient: Disposition: Home or Assisted Living Chief Complaint: Shortness of Breath Instructions: ED Neck Back Pain General Referrals: Ric Mccrary MD [Primary Care Provider] - 1 Week if not improving What to do if you have Problems For any increased pain, shortness of breath, bleeding, nausea or vomiting, chest pain, or any unexpected problems, contact your Primary Care Provider. Call [facility] ([phone]) or report to the closest Emergency Room. Call 911 if necessary. 11/01/17 0308 <Electronically signed by Anila Bartlett MD> Date Anila Bartlett MD Cosigner Signature (If Indicated): Date CC: Ric Mccrary MD DISCHARGE INSTRUCTION Observed: 10/31/2017 Status: F Source: [facility] 6:30 PM [facility] REPOSITORY [facility] Medical Records Department [address] [place] [address] Discharge Instruction 10/31/17 1829 MR#: [id number] Acct: [id number] Name: KOURTNEY REZA Rep #: [id number] : 1975 41 From: Anila Bartlett MD PCP: Ric Mccrary MD Status: REG ER ED Disposition - Plan for ED Patient: Disposition: Home or Assisted Living Chief Complaint: Shortness of Breath Instructions: ED Neck Back Pain General Referrals: Ric Mccrary MD [Primary Care Provider] - 1 Week if not improving What to do if you have Problems For any increased pain, shortness of breath, bleeding, nausea or vomiting, chest pain, or any unexpected problems, contact your Primary Care Provider. Call [facility] ([phone]) or report to the closest Emergency Room. Call 911 if necessary. 10/31/17 1830 <Electronically signed by Anila Bartlett MD> Date Anila Bartlett MD Cosigner Signature (If Indicated): Date CC: Ric Mccrary MD CBC W/DIFF, AUTOMATED Collected: 10/31/2017 Status: F Source: [facility] 4:15 PM [facility] REPOSITORY TYPE CODE TESTS RESULT OUT OF RANGE REFERENCE UNITS LAB L100.1000 4.4-11.0 K/mm3 Normal WBC 5.1 LAB L100.1200 4.2-5.4 M/mm3 Low RBC 2.47 LAB L100.1300 12.0-15.0 g/dl Low HGB 8.2 LAB L100.1400 37-47 % Low HCT 24.1 LAB L100.1500 81-99 fL Normal MCV 97.6 LAB L100.1600 27.0-32.0 pg High MCH 33.2 LAB L100.1700 32-36 g/gl Normal MCHC 34.0 LAB L100.1810 11.6-14.6 % Normal RDW CV 14.1 LAB L100.1820 35.1-43.9 fl High RDW SD 47.8 LAB L100.1900 150-450 K/mm3 Low PLT 127 LAB L100.2000 6.2-12.0 fl Normal MPV 7.9 LAB L100.2100 47-70 % Normal NEUT% 61.0 LAB L100.2200 19-41 % Normal LY% 27.8 LAB L100.2300 0-10 % Normal MONO% 4.9 LAB L100.2400 0-5 % High EO% 5.3 LAB L100.2500 0-1 % Normal BASO% 0.2 LAB L100.2550 0.0-0.9 % Normal IM GRAN % 0.800 Result Comment: IG% - Immature Granulocytes (promyelocytes, myelocytes and metamyelocytes) > 1% indicates that a LEFT SHIFT is Present. LAB L100.2620 2.0-7.7 X10 3/uL Normal Absolute Neut 3.1 LAB L100.2720 0.83-4.51 X10 3/ul Normal Absolute Lymph 1.41 Performed By: #### L100.0100 #### [facility] [address] [place], [address] BASIC METABOLIC Collected: 10/31/2017 Status: F Source: [facility] PROFILE (BMP) 4:15 PM [facility] REPOSITORY Order Comment: 'TROP' Serial specimen #1, #2, #3, or #4: 1 TYPE CODE TESTS RESULT OUT OF RANGE REFERENCE UNITS LAB L501.0100 74-106 mg/dL High GLU 263 Result Comment: Glucose result greater than or equal to 200 mg/dL suggests DIABETES MELLITUS per A.D.A. criteria. Please note revised GLUCOSE reference range effective 2017. LAB L501.1000 7-18 mg/dL High BUN 36 LAB L501.1100 0.55-1.02 mg/dL High CREAT,SERUM 5.02 Result Comment: The validity of the calculated GFR AND GFRAA in patients over 70 years has not been determined. Clinical correlation is essential. LAB L501.1110 >60 mL/min Low EST GFR 10 Result Comment: Non- GFR Calc LAB L501.1115 >60 mL/min Low EST GFR - AA 12 Result Comment: GFR Calc LAB L501.1255 ml/min Normal Estimated CRCL 13.53 LAB L501.1300 10-20 RATIO Low BUN/CRE 7.2 LAB L501.2200 8.5-10 mg/dL Low .1 CA 7.6 LAB L501.5300 136-14 mmol/L Normal 5 NA 140 LAB L501.5600 3.5-5. mmol/L Low 1 K 3.4 LAB L501.5900 98-107 mmol/L Normal CL 106 LAB L501.6100 21.0-3 mmol/L Normal 2.0 CO2 23.0 LAB L501.6200 5-15 Normal GAP 11 Performed By: #### L500.2500, L501.4010 #### [facility] [address] [place], [address] TROPONIN-I Collected: 10/31/2017 Status: F Source: [place] 4:15 PM [facility] REPOSITORY Order Comment: 'TROP' Serial specimen #1, #2, #3, or #4: 1 TYPE CODE TESTS RESULT OUT OF RANGE REFERENCE UNITS LAB L501.4010 <0.06 ng/mL Normal < 0.02 TROPONIN-I Result Comment: TROPONIN-I EXPECTED VALUES <0.05 NEGATIVE 0.06 - 0.59 AT RISK OF [place] > OR = 0.60 SUGGEST [place] Performed By: #### L500.2500, L501.4010 #### [facility] [address] [place], [address] CHEST PA AND LATERAL Observed: 10/31/2017 Status: F Source: [place] 3:29 PM [facility] REPOSITORY [facility] Imaging Services [address] [place] [address] Chest PA and Lateral MR#: [id number] Acct: [id number] Name: KOURTNEY REZA Rep #: [id number] : 1975 F 41 From: James Kahn MD PCP: Ric Mccrary MD Status: REG ER Study: Chest PA and Lateral Date of Exam: 10/31/17 Exam# [id number] Ordering Dr: Anila Bartlett MD STUDY: X-RAY CHEST REASON FOR EXAM: Female, 41 years old. Shortness of breath TECHNIQUE: Frontal and lateral views of the chest. COMPARISON: 10/25/2017. FINDINGS: The lungs are clear and expanded. There is no demonstrated pleural abnormality. Normal size heart. Normal mediastinum and latrell. Normal visualized pulmonary arteries. Normal visualized aortic arch and descending thoracic aorta. Normal visualized thoracic spine. Normal visualized ribs, clavicles, and shoulders. There is no demonstrated abnormality of the visualized soft tissue structures of the upper abdomen. RAD/Chest PA and Lateral IMPRESSION: Normal x-ray examination of the chest. Electronically Signed: James Kahn MD at 16:42 EDT , Service support , CC: Anila Bartlett MD; Ric Mccrary MD Tester Operator Helper: Signed DISCHARGE SUMMARY Observed: 10/27/2017 Status: F Source: [place] 8:10 PM [facility] REPOSITORY [facility] Medical Records Department [address] [place] [address] Discharge Summary 10/26/17 1512 MR#: [id number] Acct: [id number] Name: KOURTNEY REZA Rep #: [id number] : 1975 41 From: Reji Maya DO PCP: Ric Mccrary MD Status: DIS IN Y Location: [facility] [id number] Discharge Date and Diagnosis Date of Admission: 10/23/17 Date of Discharge: 10/26/17 - Primary Discharge Diagnosis Active and Suspected Problems Clostridium difficile enterocolitis (Acute) - Secondary Discharge Diagnosis Chronic Problems Decubitus ulcer, stage III (Chronic) - anal cleft CAD (coronary artery disease) (Chronic) Anemia, chronic disease (Chronic) Pilonidal cyst with abscess (Chronic) GABRIEL (obstructive sleep apnea) (Chronic) ESRD on dialysis (Chronic) Depression (Chronic) Anxiety (Chronic) HTN (hypertension) (Chronic) Nonischemic cardiomyopathy (Chronic) With ejection fraction 45 - 50%; with angiographically normal coronary arteries 05/2013; follows up with Dr. Underwood S/P repair of PDA (patent ductus arteriosus) (Chronic) At young age Diabetes mellitus type 1 (Chronic) Hyperlipidemia (Chronic) Obesity (BMI 30.0-34.9) (Chronic) Gastroparesis (Chronic) Hospital Course and Treatment Imaging Results: Clinical Impression(s) from Imaging Studies Acute Abdomen Series 10/25/17 14:15 IMPRESSION: Clear lungs. No bowel obstruction. Electronically Signed: Chucky Garcia, at 18:21 EDT Tel , Service support , Microbiology 10/23/17 10:30 Stool Enteric Bacteriology - Final 10/23/17 10:30 Stool C. difficile DNA Amplification - Final Toxigenic C. 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 Routine Comment: Operations: None, - Procedures: Dialysis Summary of Care Provided: She is a 41-year-old female with a past medical history of coronary artery disease, anemia of chronic renal disease, GABRIEL, end-stage renal disease on hemodialysis, depression/anxiety, hypertension, nonischemic cardiomyopathy with a 45-50% ejection fraction and normal coronaries in May 2013, history of patent ductus arteriosus repair, diabetes mellitus type 1, hyperlipidemia, a 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 She had a recent history of Clostridium difficile colitis and was being treated with Flagyl. White blood cell count at admission was 7.6 with 74% neutrophils. Lipase was mildly elevated at 962. A clean catch UA was unremarkable. C. Diff in the stool was positive. Enteric pathogen panel was negative. She was admitted to the hospital and started on PO Vancomycin 125 mg Q6H and a clear liquid diet. the diet was advance to full liquids as tolerated. the diarrhea resolved and then she became concerned that she had no stool in the colostomy bag although she had flatus in the bag. An acute abdominal series was obtained and did not shows a bowel obstruction. On the day of DC she had HD and following HD tolerated a full liquid diet. She was given a RX for Vancocin capsules #48 and instructed to take 1 every 6 hours to complete 14 days of treatment. She was also given a RX for Dressing supplies. I recommended she start a probiotic to replace normal bowel fadi. She will follow up with Dr. Mccrary in 7-10 days. I also recommended that she inform everyone changing the dressings that she has C. Diff so proper precautions to prevent transmission of the spores can be taken. This note was generated with [employer] dictation software. It may contain incorrect words, spelling, and punctuation that were not noted in checking the note before signing. Call your doctor if you observe: Fever of 101 or Higher, - - recurrent severe diarrhea, intractable abdominal pain. Home Medications: Medications to take at Discharge Diltiazem HCl [Tiazac] 240 mg PO DAILY 07/10/15 Aspirin [Aspirin, Baby] 81 mg PO DAILY@0800 01/26/16 Calcium Acetate [Phoslo Gel Cap] 667 mg PO TIDCM 01/26/16 Ergocalciferol [Vitamin D] 50,000 unit PO FR 01/26/16 Insulin Aspart [Novolog Flexpen] 8 units SC TIDCM 01/26/16 Insulin Glargine,Hum.rec.anlog [Lantus] 5 unit SQ QHS 01/09/17 proMETHazine tablet [Phenergan tablet] 25 mg PO Q6H PRN PRN #10 tablet 03/06/17 Lisinopril 20 mg PO DAILY 03/29/17 Omeprazole Magnesium [Prilosec Otc] 20 mg PO DAILY 03/29/17 Sodium Bicarbonate 650 mg PO TUTHSA 03/29/17 Acetaminophen [Tylenol Tablet] 650 mg PO Q6H PRN PRN tablet 03/31/17 Carvedilol [Coreg (Beta Lewis)] 25 mg PO BID 06/17/17 Ondansetron [Zofran Odt] 4 mg PO Q8H PRN PRN #10 tablet 08/06/17 Fluoxetine HCl 40 mg PO DAILY 09/02/17 hydrALAZINE [Apresoline] 25 mg PO TID #1 tablet 09/05/17 Vancomycin [Vancocin] 125 mg PO Q6H #48 cap 10/26/17 Following Prescrptions Were Given to Patient: Vancomycin [Vancocin] 125 mg PO Q6H #48 cap Primary Care Physician: Ric Mccrary MD [Primary Care Provider] - Please follow up with your Primary Care Physician in: 7-10 days Patient Instructions: Clostridium difficile Infection Disposition: Home Minutes spent on discharge:: 35 Patient Condition:: Stable Medical Necessity - Tobacco Use Smoking Status: Current some day smoker Meaningful Use Info Meaningful Use Diagnoses (Choose all that apply): None applicable Code Visit Inpatient E AND M: 68061 Disch Hosp 10/27/172009 <Electronically signed by Reji Maya DO> Date Reji Maya DO Cosigner Signature (if applicable): Date CC: Jennifer Maya; Ric Mccrary MD Signed 12 LEAD ELECTROCARDIOGRAM Observed: 10/27/2017 Status: F Source: [place] 1:04 PM [facility] REPOSITORY [facility] Cardiovascular Services [address] [place] [address] 12 Lead EKG 10/23/17 0954 MR#: [id number] Acct: [id number] Name: KOURTNEY REZA Rep #: [id number] : 1975 41 From: Robert Tompkins MD Attending Dr: Jennifer Maya Status: DIS IN Ordering Dr: Estrella Solano DO Date: 10/23/17 Location: [facility] Sex: F C Admitted: 10/23/17 Test Reason : N/V Blood Pressure : / mmHG Vent. Rate : 078 BPM Atrial Rate : 078 BPM P-R Int : 138 ms QRS Dur : 086 ms QT Int : 412 ms P-R-T Axes : 039 052 094 degrees QTc Int : 469 ms Normal sinus rhythm Normal ECG Confirmed by ROBERT TOMPKINS MD ([id number]), web editor SHANIA SOLITARIO ([id number]) on 10/27/2017 1:03:40 PM Referred By: KISHAN Confirmed By:ROBERT TOMPKINS MD 10/27/17 1303 Date Robert Tompkins MD CC: Jennifer Maya; Estrella Solano DO; Ric Mccrary MD Signed DISCHARGE INSTRUCTION Observed: 10/26/2017 Status: F Source: [place] 3:11 PM [facility] REPOSITORY [facility] Medical Records Department [address] [place] [address] Instructions for Home/Discharge Instructions 10/26/17 1502 MR#: [id number] Acct: [id number] Name: KOURTNEY REZA Rep #: [id number] : 1975 41 From: Reji Maya DO PCP: Ric Mccrary MD Status: ADM IN You will use the following diet at home:: Other - advance diet as tolerated Your food should be the consistency of: Regular Your liquids should be the consistency of: Regular/Thin Call your doctor if you observe: Fever of 101 or Higher, - - recurrent severe diarrhea, intractable abdominal pain. Instructions: Clostridium difficile Infection Additional Instructions: clostridium difficile can be transmitted from 1 person to another. It is a spore and can be passed from contact with soiled clothing or if the spores are on your hands and you have contact with another person. It is not killed with hand sewer pipe layer but it is killed with hot soapy water. Be sure to tell ANYONE who changes the dressing that you have C. Diff so that they take the proper precautions. Make sure to take ALL the ALL of the Vancocin capsules prescribed for you OR the infectio can come back. I recommend you take a probiotic, available at any drug store over the counter, to help replace the normal bacteria that live in your colon. Allergies/Adverse Reactions: Allergies latex Allergy (Verified 10/23/17 12:15) Rash levofloxacin [From Levaquin] Adverse Reaction (Verified 10/23/17 12:15) PT CAN'T REMEMBER PT CAN'T REMEMBER metoclopramide HCl [From Reglan] Adverse Reaction (Verified 10/23/17 12:15) Nausea NSAIDS (Non-Steroidal Anti-Inflamma Adverse Reaction (Verified 10/23/17 12:15) kidney function oxycodone HCl [From Percocet] Adverse Reaction (Verified 10/23/17 12:15) HALLUCINATIONS Medications to take at Discharge Diltiazem HCl [Tiazac] 240 mg PO DAILY 07/10/15 Aspirin [Aspirin, Baby] 81 mg PO DAILY@0800 01/26/16 Calcium Acetate [Phoslo Gel Cap] 667 mg PO TIDCM 01/26/16 Ergocalciferol [Vitamin D] 50,000 unit PO FR 01/26/16 Insulin Aspart [Novolog Flexpen] 8 units SC TIDCM 01/26/16 Insulin Glargine,Hum.rec.anlog [Lantus] 5 unit SQ QHS 01/09/17 proMETHazine tablet [Phenergan tablet] 25 mg PO Q6H PRN PRN #10 tablet 03/06/17 Lisinopril 20 mg PO DAILY 03/29/17 Omeprazole Magnesium [Prilosec Otc] 20 mg PO DAILY 03/29/17 Sodium Bicarbonate 650 mg PO TUTHSA 03/29/17 Acetaminophen [Tylenol Tablet] 650 mg PO Q6H PRN PRN tablet 03/31/17 Carvedilol [Coreg (Beta Lewis)] 25 mg PO BID 06/17/17 Ondansetron [Zofran Odt] 4 mg PO Q8H PRN PRN #10 tablet 08/06/17 Fluoxetine HCl 40 mg PO DAILY 09/02/17 hydrALAZINE [Apresoline] 25 mg PO TID #1 tablet 09/05/17 Vancomycin [Vancocin] 125 mg PO Q6H #48 cap 10/26/17 The following prescriptions were given: Vancomycin [Vancocin] 125 mg PO Q6H #48 cap Primary Care Physician: Ric Mccrary MD [Primary Care Provider] - Please follow up with your Primary Care Physician in: 7-10 days Proposed Discharge Date: 10/26/17 10/26/17 151 <Electronically signed by Reji Maya DO> Date Reji Maya DO CC: Ivania Martinez M.D.; Ric Mccrary MD BEDSIDE GLUCOSE Collected: 10/26/2017 Status: F Source: [place] 11:37 AM [facility] REPOSITORY TYPE CODE TESTS RESULT OUT OF REFERENCE UNITS RANGE LAB L501.080 70-110 mg/dL High BEDSIDE GLU 247 Result Comment: MANAGEMENT OF PATIENT CARE PER NURSING PROTOCOL Performed By: #### L501.080 #### [facility] Point of Care [address] [place] [address] BEDSIDE GLUCOSE Collected: 10/26/2017 Status: F Source: [place] 6:11 AM [facility] REPOSITORY TYPE CODE TESTS RESULT OUT OF REFERENCE UNITS RANGE LAB L501.080 70-110 mg/dL High BEDSIDE GLU 142 Result Comment: MANAGEMENT OF PATIENT CARE PER NURSING PROTOCOL Performed By: #### L501.080 #### [facility] Point of Care [address] [place] [address] CBC W/DIFF, AUTOMATED Collected: 10/26/2017 Status: F Source: [place] 5:40 AM [facility] REPOSITORY TYPE CODE TESTS RESULT OUT OF RANGE REFERENCE UNITS LAB L100.1000 4.4-11.0 K/mm3 Low WBC 4.3 LAB L100.1200 4.2-5.4 M/mm3 Low RBC 2.60 LAB L100.1300 12.0-15.0 g/dl Low HGB 8.5 LAB L100.1400 37-47 % Low HCT 25.9 LAB L100.1500 81-99 fL High MCV 99.6 LAB L100.1600 27.0-32.0 pg High MCH 32.7 LAB L100.1700 32-36 g/gl Normal MCHC 32.8 LAB L100.1810 11.6-14.6 % Normal RDW CV 14.4 LAB L100.1820 35.1-43.9 fl High RDW SD 50.1 LAB L100.1900 150-450 K/mm3 Low PLT 142 LAB L100.2000 6.2-12.0 fl Normal MPV 7.9 LAB L100.2100 47-70 % Normal NEUT% 65.6 LAB L100.2200 19-41 % Normal LY% 20.4 LAB L100.2300 0-10 % Normal MONO% 6.3 LAB L100.2400 0-5 % High EO% 7.0 LAB L100.2500 0-1 % Normal BASO% 0.5 LAB L100.2550 0.0-0.9 % Normal IM GRAN % 0.200 Result Comment: IG% - Immature Granulocytes (promyelocytes, myelocytes and metamyelocytes) > 1% indicates that a LEFT SHIFT is Present. LAB L100.2620 2.0-7.7 X10 3/uL Normal Absolute Neut 2.8 LAB L100.2720 0.83-4.51 X10 3/ul Normal Absolute Lymph 0.87 Performed By: #### L100.0100 #### [facility] [address] [facility] [place], [place], [id number] BASIC METABOLIC Collected: 10/26/2017 Status: F Source: [place] PROFILE (BMP) 5:40 AM [facility] REPOSITORY TYPE CODE TESTS RESULT OUT OF RANGE REFERENCE UNITS LAB L501.0100 74-106 mg/dL High GLU 139 Result Comment: Fasting Glucose result greater than or equal to 126 mg/dL suggests DIABETES MELLITUS per A.D.A. criteria. Please note revised GLUCOSE reference range effective 2017. LAB L501.1000 7-18 mg/dL High BUN 31 LAB L501.1100 0.55-1.02 mg/dL High CREAT,SERUM 4.79 Result Comment: The validity of the calculated GFR AND GFRAA in patients over 70 years has not been determined. Clinical correlation is essential. LAB L501.1110 >60 mL/min Low EST GFR 11 Result Comment: Non- GFR Calc LAB L501.1115 >60 mL/min Low EST GFR - AA 13 Result Comment: GFR Calc LAB L501.1255 ml/min Normal Estimated CRCL 14.18 LAB L501.1300 10-20 RATIO Low BUN/CRE 6.5 LAB L501.2200 8.5-10 mg/dL Low .1 CA 8.3 LAB L501.5300 136-14 mmol/L Normal 5 NA 141 LAB L501.5600 3.5-5. mmol/L Normal 1 K 3.5 LAB L501.5900 98-107 mmol/L Normal CL 106 LAB L501.6100 21.0-3 mmol/L Normal 2.0 CO2 27.0 LAB L501.6200 5-15 Normal GAP 8 Performed By: #### L500.2500, L501.2300 #### [facility] [address] [place], [address] PHOSPHORUS Collected: 10/26/2017 Status: F Source: [place] 5:40 AM [facility] REPOSITORY TYPE CODE TESTS RESULT OUT OF RANGE REFERENCE UNITS LAB L501.2300 2.5-4.9 mg/dL High PHOS 5.0 Performed By: #### L500.2500, L501.2300 #### [facility] [address] [place], [address] BEDSIDE GLUCOSE Collected: 10/25/2017 Status: F Source: [place] 10:20 PM [facility] REPOSITORY TYPE CODE TESTS RESULT OUT OF REFERENCE UNITS RANGE LAB L501.080 70-110 mg/dL High BEDSIDE GLU 144 Result Comment: MANAGEMENT OF PATIENT CARE PER NURSING PROTOCOL Performed By: #### L501.080 #### [facility] Point of Care [address] [place] [address] BEDSIDE GLUCOSE Collected: 10/25/2017 Status: F Source: [place] 4:51 PM [facility] REPOSITORY TYPE CODE TESTS RESULT OUT OF REFERENCE UNITS RANGE LAB L501.080 70-110 mg/dL High BEDSIDE GLU 193 Result Comment: MANAGEMENT OF PATIENT CARE PER NURSING PROTOCOL Performed By: #### L501.080 #### [facility] Point of Care [address] [place] [address] ACUTE ABDOMEN INC Observed: 10/25/2017 Status: F Source: [place] CHEST 1:41 PM [facility] REPOSITORY [facility] Imaging Services [address] [place] [address] Acute Abdomen Inc Chest MR#: [id number] Acct: [id number] Name: KOURTNEY REZA Rep #: [id number] : 1975 F 41 From: Chucky Zelaya MD PCP: Ric Mccrary MD Status: ADM IN Study: Acute Abdomen Inc Chest Date of Exam: 10/25/17 Exam# [id number] Ordering Dr: Reji Maya DO STUDY: X-RAY - ACUTE ABDOMINAL SERIES REASON FOR EXAM: Female, 41 years old. Pain TECHNIQUE: Single view of the chest. Supine, upright view(s) of the abdomen were obtained. COMPARISON: 08/05/2017 FINDINGS: The lungs are clear. There are no pleural effusions. There is no pneumothorax. The heart is normal in size. There is no bowel obstruction. There is air and stool to the level of the rectum. There are stable scoliosis noted in the spine. RAD/Acute Abdomen Inc Chest IMPRESSION: Clear lungs. No bowel obstruction. Electronically Signed: Chucky Zelaya, at 18:21 EDT Tel , Service support , CC: Jennifer Maya; Ric Mccrary MD Tester Operator Helper: Signed BEDSIDE GLUCOSE Collected: 10/25/2017 Status: F Source: [place] 11:22 AM [facility] REPOSITORY TYPE CODE TESTS RESULT OUT OF REFERENCE UNITS RANGE LAB L501.080 70-110 mg/dL High BEDSIDE GLU 168 Result Comment: MANAGEMENT OF PATIENT CARE PER NURSING PROTOCOL Performed By: #### L501.080 #### [facility] Point of Care [address] [place] [address] BEDSIDE GLUCOSE Collected: 10/25/2017 Status: F Source: [place] 6:44 AM [facility] REPOSITORY TYPE CODE TESTS RESULT OUT OF REFERENCE UNITS RANGE LAB L501.080 70-110 mg/dL High BEDSIDE GLU 163 Result Comment: MANAGEMENT OF PATIENT CARE PER NURSING PROTOCOL Performed By: #### L501.080 #### [facility] Point of Care [address] [place] [address] BEDSIDE GLUCOSE Collected: 10/25/2017 Status: F Source: [place] 4:34 AM [facility] REPOSITORY TYPE CODE TESTS RESULT OUT OF REFERENCE UNITS RANGE LAB L501.080 70-110 mg/dL High BEDSIDE GLU 147 Result Comment: MANAGEMENT OF PATIENT CARE PER NURSING PROTOCOL Performed By: #### L501.080 #### [facility] Point of Care [address] [place] [address] BEDSIDE GLUCOSE Collected: 10/24/2017 Status: F Source: [place] 9:23 PM [facility] REPOSITORY TYPE CODE TESTS RESULT OUT OF REFERENCE UNITS RANGE LAB L501.080 70-110 mg/dL High BEDSIDE GLU 274 Result Comment: MANAGEMENT OF PATIENT CARE PER NURSING PROTOCOL Performed By: #### L501.080 #### [facility] Point of Care [address] [place] [address] BEDSIDE GLUCOSE Collected: 10/24/2017 Status: F Source: [place] 5:39 PM [facility] REPOSITORY TYPE CODE TESTS RESULT OUT OF REFERENCE UNITS RANGE LAB L501.080 70-110 mg/dL High BEDSIDE GLU 211 Result Comment: MANAGEMENT OF PATIENT CARE PER NURSING PROTOCOL Performed By: #### L501.080 #### [facility] Point of Care [address] [place] [address] CONSULTATION Observed: 10/24/2017 Status: F Source: [place] 1:07 PM [facility] REPOSITORY [facility] Medical Records Department [address] [place] [address] Consultation 10/24/17 1303 MR#: [id number] Acct: [id number] Name: KOURTNEY REZA Rep #: [id number] : 1975 41 From: Chey Martinez MD PCP: Ric Mccrary MD Status: ADM IN Location: [place] [address]-1 Problem List (1) ESRD on dialysis Status: Chronic Consultation - Renal 10/24/17 PCP/ Referring MD: Requesting physician: Dr Soler Primary care physician: Ric Mccrary Reason for Consultation:: ESRD - History of Present Illness History of Present Illness: The patient is a 41 year old F well known to us. ESRD on HD TTS schedule. Access if left arm AVF. several hospitalizations recently. fistula around anus, s/p diverting colostomy, wound vac. was in [facility] [place] recently got discharged admitted with N/V/D. being treated for acute pancreatitis - Allergies Allergies: Allergies latex Allergy (Verified 10/23/17 12:15) Rash levofloxacin [From Levaquin] Adverse Reaction (Verified 10/23/17 12:15) PT CAN'T REMEMBER PT CAN'T REMEMBER metoclopramide HCl [From Reglan] Adverse Reaction (Verified 10/23/17 12:15) Nausea NSAIDS (Non-Steroidal Anti-Inflamma Adverse Reaction (Verified 10/23/17 12:15) kidney function oxycodone HCl [From Percocet] Adverse Reaction (Verified 10/23/17 12:15) HALLUCINATIONS - Current Medications Current Medications: Current Medications Aspirin (Aspirin, Baby) 81 mg PO DAILY@0800 [facility] Calcium Acetate (Phoslo Gel Cap) 667 mg PO TIDCM [facility] Last Admin: 10/23/17 17:58 Dose: 667 mg Carvedilol (Coreg) 25 mg PO BID [facility] Last Admin: 10/23/17 21:58 Dose: 25 mg Dextrose (D50w Syringe) 0 gm IV X1 PRN; Protocol PRN Reason: Hypoglycemia Diltiazem HCl (Cardizem Cd) 240 mg PO DAILY [facility] Fluoxetine HCl (Prozac) 40 mg PO DAILY [facility] Glucagon () 1 mg IM .X1 PRN PRN Reason: Hypoglycemia Heparin Sodium (Porcine) (Heparin Na) 5,000 unit SC BID [facility] Last Admin: 10/23/17 21:58 Dose: 5,000 u Hydralazine HCl (Apresoline) 25 mg PO TID [facility] Last Admin: 10/24/17 05:55 Dose: 25 mg Hydralazine HCl (Apresoline Iv) 10 mg IV Q6H PRN PRN PRN Reason: for SBP>160 Sodium Chloride () 1,000 mls @ 75 mls/hr IV .[id number] [facility] Last Admin: 10/23/17 21:58 Dose: 75 mls/hr Famotidine (Pepcid 20mg) 20 mg in 50 mls @ 150 mls/hr IV Q12 [facility] Last Admin: 10/23/17 21:59 Dose: 150 mls/hr Insulin Aspart (Novolog Flexpen (Bk)) 0 units SC ACHS [facility] PRN Reason: Protocol Last Admin: 10/24/17 13:01 Dose: Not Given Insulin Detemir (Levemir (Bk)) 5 units SC QHS [facility] Last Admin: 10/23/17 22:00 Dose: 5 u Lisinopril (Zestril) 20 mg PO DAILY [facility] Morphine Sulfate () 1 - 2 mg IV Q4H PRN PRN PRN Reason: SEVERE PAIN (6-10/10) Last Admin: 10/24/17 10:30 Dose: 2 mg Nutritional Formula (Lactose Free) (Ensure Clear) 120 ml PO 4X/DAY [facility] Last Admin: 10/24/17 12:23 Dose: Not Given Ondansetron HCl (Zofran) 4 mg IV Q6H PRN PRN PRN Reason: NAUSEA/VOMITING Last Admin: 10/24/17 05:20 Dose: 4 mg Promethazine HCl (Phenergan Iv) 6.25 mg IV Q6H PRN PRN PRN Reason: NAUSEA/VOMITING Last Admin: 10/23/17 23:47 Dose: 6.25 mg Sodium Bicarbonate (Sodium Bicarbonate) 650 mg PO TUTHSA [facility] Sodium Chloride () 5 - 30 ml IV UD PRN PRN Reason: SALINE FLUSH Vancomycin HCl (Vancomycin 125mg/5ml Susp) 125 mg PO Q6 [facility] Last Admin: 10/24/17 05:55 Dose: 125 mg - Past Medical History Past Medical History (Chronic Problems): Chronic Problems CAD (coronary artery disease) (Chronic) Anemia, chronic disease (Chronic) Pilonidal cyst with abscess (Chronic) GABRIEL (obstructive sleep apnea) (Chronic) ESRD on dialysis (Chronic) Depression (Chronic) Anxiety (Chronic) HTN (hypertension) (Chronic) Nonischemic cardiomyopathy (Chronic) With ejection fraction 45 - 50%; with angiographically normal coronary arteries 05/2013; follows up with Dr. Underwood S/P repair of PDA (patent ductus arteriosus) (Chronic) At young age Diabetes mellitus type 1 (Chronic) Hyperlipidemia (Chronic) Obesity (BMI 30.0-34.9) (Chronic) Gastroparesis (Chronic) - Past Surgical History Surgical History: appendectomy, hysterectomy - and BSO, - - c-sections, L breast I+D for abscess, fistula placement LUE, L ankle surgery, appendectomy, PDA repair. Excision pilonidal cyst ulcer about 4 years ago. - Social History Smoking Status: Current some day smoker Alcohol: None Drugs: None - Family History Maternal History Items: Cancer, COPD, Diabetes, Hypertension, Renal Disease, Stroke Paternal History Items: Diabetes Sibling History Items: Cancer, Diabetes Review of Systems Constitutional: Denies: Chills, Fever, Weight Change HEENT: Denies: Head Aches, Sinus Congestion, Sinus Drainage Cardiovascular: Denies: Chest Pain, Palpitations Respiratory: Denies: Cough, Shortness of breath at rest, Sputum production Gastrointestinal: Denies: Abdominal Pain, Nausea, Vomiting Genitourinary: Denies: Dysuria Musculoskeletal: Denies: Joint Pain, Joint Tenderness Skin: Denies: Rash, Wounds Neurological: Denies: Numbness, Tingling, Focal weakness Psychiatric: Denies: Anxiety, Depression, Homicidal Ideations, Suicidal Ideations Hematologic/ Lymphatic: Denies: Easy Bruising, Easy Bleeding - Physical Exam General: Alert, Oriented x3, Cooperative HEENT: Atraumatic, PERRLA, EOMI, Normocephalic Neck: Supple, No JVD, Negative Carotid Bruits Lungs: Clear to auscultation, Normal air movement Cardiovascular: Regular rate, No murmurs Abdomen: Bowel Sounds Present, Soft, Non Tender Extremities: No edema, Capillary Refill Less than 3 Seconds Skin: No rashes, No breakdown Musculoskeletal: No Tenderness to Palpation of Joints or Extremities Neurological: Cranial nerves II-XII grossly intact Psych/Mental Status: Normal Affect, Appropriate Vital Signs Temp Pulse Resp BP Pulse Ox 97.5 F L 79 18 152/76 H 100 10/24/17 02:17 10/24/17 05:55 10/24/17 02:17 10/24/17 02:17 10/24/17 02:17 Oxygen Flow Rate (L/min) 2 Oxygen Delivery Method Room Air Weight: 84.4 kg Body Mass Index (BMI) 29.9 Intake and Output for Last 24 Hours Intake Total 1122 / 1122 402 / 402 Output Total 600 / 600 200 / 200 Balance 522 / 522 202 / 202 Laboratory Tests Past 24 Hrs POC Glucose POC Glucose 113 H 89 257 H POC Glucose 178 H 129 H Assessment/Plan ESRD. Dialysis today. seen on dialysis. see orders/ flowsheets. no complaints anemia. Hb is at goal Pancreatitis. on IV fluids. clinically better since admission. 10/24/17 1307 <Electronically signed by Chey Martinez MD> Date Chey Martinez MD Cosigner Signature (if applicable): Date CC: Ivania Martinez M.D.; Ric Mccrary MD Signed BEDSIDE GLUCOSE Collected: 10/24/2017 Status: F Source: [place] 12:54 PM [facility] REPOSITORY TYPE CODE TESTS RESULT OUT OF REFERENCE UNITS RANGE LAB L501.080 70-110 mg/dL High BEDSIDE GLU 113 Result Comment: MANAGEMENT OF PATIENT CARE PER NURSING PROTOCOL Performed By: #### L501.080 #### [facility] Point of Care [address] [place] [address] COMPREHENSIVE METABOLIC Collected: 10/24/2017 Status: F Source: [place] [facility] 6:45 AM [facility] REPOSITORY TYPE CODE TESTS RESULT OUT OF RANGE REFERENCE UNITS LAB L501.0100 74-106 mg/dL Normal GLU 88 Result Comment: Please note revised GLUCOSE reference range effective 2017. LAB L501.1000 7-18 mg/dL High BUN 50 LAB L501.1100 0.55-1.02 mg/dL High CREAT,SERUM 6.02 Result Comment: The validity of the calculated GFR AND GFRAA in patients over 70 years has not been determined. Clinical correlation is essential. LAB L501.1110 >60 mL/min Low EST GFR 8 Result Comment: Non- GFR Calc LAB L501.1115 >60 mL/min Low EST GFR - AA 10 Result Comment: GFR Calc LAB L501.1255 ml/min Normal Estimated CRCL 11.28 LAB L501.1300 10-20 RATIO Low BUN/CRE 8.3 LAB L501.1500 6.4-8. g/dL Normal 2 T PROT 7.0 LAB L501.1800 3.2-5. g/dL Low 0 ALB 2.2 LAB L501.1950 2.2-4. g/dL High 2 GLOB 4.8 LAB L501.2000 0.9-2. RATIO Low 4 A/G 0.5 LAB L501.2200 8.5-10 mg/dL Low .1 CA 8.0 LAB L501.4100 15-37 U/L Low AST 10 LAB L501.4305 45-117 U/L Normal ALK P 74 LAB L501.4405 13-56 U/L Normal ALT 23 Result Comment: Please note revised ALT reference range effective 2017. LAB L501.4600 0.20-1.00 mg/dL Normal T BILI 0.20 LAB L501.5300 136-145 mmol/L Normal NA 141 LAB L501.5600 3.5-5.1 mmol/L Normal K 4.3 LAB L501.5900 98-107 mmol/L High CL 112 LAB L501.6100 21.0-32.0 mmol/L Low CO2 19.0 LAB L501.6200 5-15 Normal GAP 10 Performed By: #### L500.4050, L501.2450 #### [facility] [address] [place], [place], [id number] LIPASE Collected: 10/24/2017 Status: F Source: [place] [address]:45 AM [facility] REPOSITORY TYPE CODE TESTS RESULT OUT OF REFERENCE UNITS RANGE LAB L501.2450 73-393 U/L High LIPASE 399 Performed By: #### L500.4050, L501.2450 #### [facility] [place], [address] CBC W/DIFF, AUTOMATED Collected: 10/24/2017 Status: F Source: [place] 6:45 AM [facility] REPOSITORY TYPE CODE TESTS RESULT OUT OF RANGE REFERENCE UNITS LAB L100.1000 4.4-11.0 K/mm3 Normal WBC 6.4 LAB L100.1200 4.2-5.4 M/mm3 Low RBC 2.88 LAB L100.1300 12.0-15.0 g/dl Low HGB 9.3 LAB L100.1400 37-47 % Low HCT 28.2 LAB L100.1500 81-99 fL Normal MCV 97.9 LAB L100.1600 27.0-32.0 pg High MCH 32.3 LAB L100.1700 32-36 g/gl Normal MCHC 33.0 LAB L100.1810 11.6-14.6 % High RDW CV 15.1 LAB L100.1820 35.1-43.9 fl High RDW SD 54.1 LAB L100.1900 150-450 K/mm3 Normal PLT 150 LAB L100.2000 6.2-12.0 fl Normal MPV 8.1 LAB L100.2100 47-70 % Normal NEUT% 62.0 LAB L100.2200 19-41 % Normal LY% 28.3 LAB L100.2300 0-10 % Normal MONO% 3.6 LAB L100.2400 0-5 % High EO% 5.6 LAB L100.2500 0-1 % Normal BASO% 0.3 LAB L100.2550 0.0-0.9 % Normal IM GRAN % 0.200 Result Comment: IG% - Immature Granulocytes (promyelocytes, myelocytes and metamyelocytes) > 1% indicates that a LEFT SHIFT is Present. LAB L100.2620 2.0-7.7 X10 3/uL Normal Absolute Neut 4.0 LAB L100.2720 0.83-4.51 X10 3/ul Normal Absolute Lymph 1.82 Performed By: #### L100.0100 #### [facility] [address] [place], [place], [id number] BEDSIDE GLUCOSE Collected: 10/24/2017 Status: F Source: [place] 6:44 AM [facility] REPOSITORY TYPE CODE TESTS RESULT OUT OF RANGE REFERENCE UNITS LAB L501.080 70-110 mg/dL Normal BEDSIDE GLU 89 Result Comment: MANAGEMENT OF PATIENT CARE PER NURSING PROTOCOL Performed By: #### L501.080 #### [facility] Point of Care [address] [place] [address] BEDSIDE GLUCOSE Collected: 10/23/2017 Status: F Source: [place] 9:54 PM [facility] REPOSITORY TYPE CODE TESTS RESULT OUT OF REFERENCE UNITS RANGE LAB L501.080 70-110 mg/dL High BEDSIDE GLU 257 Result Comment: MANAGEMENT OF PATIENT CARE PER NURSING PROTOCOL Performed By: #### L501.080 #### [facility] Point of Care [address] [place] [address] BEDSIDE GLUCOSE Collected: 10/23/2017 Status: F Source: [place] 3:52 PM [facility] REPOSITORY TYPE CODE TESTS RESULT OUT OF REFERENCE UNITS RANGE LAB L501.080 70-110 mg/dL High BEDSIDE GLU 178 Result Comment: MANAGEMENT OF PATIENT CARE PER NURSING PROTOCOL Performed By: #### L501.080 #### [facility] Point of Care [address] [place] [address] BEDSIDE GLUCOSE Collected: 10/23/2017 Status: F Source: [place] 1:28 PM [facility] REPOSITORY TYPE CODE TESTS RESULT OUT OF REFERENCE UNITS RANGE LAB L501.080 70-110 mg/dL High BEDSIDE GLU 129 Result Comment: MANAGEMENT OF PATIENT CARE PER NURSING PROTOCOL Performed By: #### L501.080 #### [facility] Point of Care [address] [place] [address] URINALYSIS, COMPLETE Collected: 10/23/2017 Status: F Source: [place] 1:20 PM [facility] REPOSITORY Order Comment: Order Date: 10/23/17 How was Urine Obtained? CLEAN CATCH TYPE CODE TESTS RESULT OUT OF RANGE REFERENCE UNITS LAB L400.3000 Yellow COLOR Normal Yellow LAB L400.3050 Clear Normal CLARITY Sl. Cloudy LAB L400.3200 Normal mg/dl High GLUCOSE, UR 250 LAB L400.3300 Negative mg/dL Normal BILIRUBIN URINE Negative LAB L400.3400 Negative mg/dl Normal KETONE UR Negative LAB L400.3465 1.002-1.030 Normal SP.GR. DIPSTX 1.005 LAB L400.3550 5.0 - 8.0 pH UR Normal 7.0 LAB L400.3600 Negative mg/dl High PROT DIPSTX 100 LAB L400.3700 Normal mg/dl Normal UROBILI Normal LAB L400.3750 Negative Normal NITRITE UR Negative LAB L400.3780 Negative /ul High 25 OCCULT BLOOD-UR LAB L400.3800 Negative /ul High LEUK 25 ESTERASE LAB L400.4050 0-5 /hpf WBC Normal 0-5 SEEN LAB L400.4100 0-5 /hpf 0 Normal RBC-UA SEEN LAB L400.4150 5-10 /hpf SQUAM Normal EPI 25-50 SEEN LAB L400.4300 None Seen /hpf 1+ Normal BACTERIA LAB L400.4350 <or=2+ /hpf 0 Normal MUCUS, URINE SEEN Performed By: #### L400.0001 #### [facility] [address] [place], [address] HISTORY AND PHYSICAL Observed: 10/23/2017 Status: F Source: [place] EXAM 1:09 PM [facility] REPOSITORY [facility] Medical Records Department [address] [place] [id number] History and Physical 10/23/17 1204 MR#: [id number] Acct: [id number] Name: KOURTNEY REZA Rep #: [id number] : 1975 41 From: Francois Soler MD PCP: Ric Mccrary MD Status: ADM IN Location: [place] [id number] Problem List (1) CAD (coronary artery disease) Status: Chronic (2) Anemia, chronic disease Status: Chronic (3) GABRIEL (obstructive sleep apnea) Status: Chronic (4) ESRD on dialysis Status: Chronic (5) Depression Status: Chronic Qualifiers: (6) Anxiety Status: Chronic (7) HTN (hypertension) Status: Chronic Qualifiers: (8) Nonischemic cardiomyopathy Status: Chronic Comment: With ejection fraction 45 - 50%; with angiographically normal coronary arteries 05/2013; follows up with Dr. Underwood (9) S/P repair of PDA (patent ductus arteriosus) Status: Chronic Comment: At young age (10) Diabetes mellitus type 1 Status: Chronic Qualifiers: (11) Hyperlipidemia Status: Chronic Qualifiers: (12) Gastroparesis Status: Chronic History of Present Illness Date of Admission: 10/23/17 Chief Complaint: Abdominal pain, nausea, vomiting, diarrhea. The patient is a 41 year old F with multiple medical comorbidities as mentioned above presented to the emergency room because of abdominal pain, nausea, vomiting and diarrhea. Her symptoms started around 3 days ago with epigastric pain, sharp pain, 8 out of 10 in severity, radiates to her back, associated with intractable nausea and vomiting and she was not able to keep anything down to her stomach for the last 3 days and also associated with diarrhea and without aggravating or relieving factors. She has been having profuse watery stool and she needed to change her colostomy bag at least 13 times a day over the last 5 days. She denies fever or chills. She mentioned that she was at [facility] in [place] recently and she was diagnosed with C. difficile colitis and she was treated with antibiotics probably Flagyl. She is not sure if she is done with the 2 weeks of Flagyl treatment for C. difficile colitis. She mentioned that the diarrhea has been going on since that time without any improvement. 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 She has been seeing Dr. Munroe for it. In the emergency room, her blood pressure was elevated, was afebrile, heart rate stable and pulse ox is normal on room air. Her routine blood work is remarkable for chronic anemia with stable hemoglobin, creatinine of 6.54 which is chronic. LFT was normal. Lipase was 962. Troponin is negative. Her EKG revealed normal sinus rhythm without evidence of cardiac arrhythmias or acute ischemic changes. She is being admitted for intractable nausea and vomiting, perfuse diarrhea and mild acute pancreatitis. Past Medical History Past Medical History (Chronic Problems): Chronic Problems CAD (coronary artery disease) (Chronic) Anemia, chronic disease (Chronic) Pilonidal cyst with abscess (Chronic) GABRIEL (obstructive sleep apnea) (Chronic) ESRD on dialysis (Chronic) Depression (Chronic) Anxiety (Chronic) HTN (hypertension) (Chronic) Nonischemic cardiomyopathy (Chronic) With ejection fraction 45 - 50%; with angiographically normal coronary arteries 05/2013; follows up with Dr. Underwood S/P repair of PDA (patent ductus arteriosus) (Chronic) At young age Diabetes mellitus type 1 (Chronic) Hyperlipidemia (Chronic) Obesity (BMI 30.0-34.9) (Chronic) Gastroparesis (Chronic) Allergies latex Allergy (Verified 10/23/17 09:32) Rash levofloxacin [From Levaquin] Adverse Reaction (Verified 10/23/17 09:32) PT CAN'T REMEMBER PT CAN'T REMEMBER metoclopramide HCl [From Reglan] Adverse Reaction (Verified 10/23/17 09:32) Nausea NSAIDS (Non-Steroidal Anti-Inflamma Adverse Reaction (Verified 10/23/17 09:32) kidney function oxycodone HCl [From Percocet] Adverse Reaction (Verified 10/23/17 09:32) HALLUCINATIONS Home Medications: Ambulatory Orders Medication Instructions Recorded Diltiazem HCl [Tiazac] 240 mg PO DAILY 07/10/15 Aspirin [Aspirin, Baby] 81 mg PO DAILY@0800 01/26/16 Surgical History: appendectomy, hysterectomy - and BSO, - - c-sections, L breast I+D for abscess, fistula placement LUE, L ankle surgery, appendectomy, PDA repair. Excision pilonidal cyst ulcer about 4 years ago. 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 Denies: Chills, Fever Eyes: Denies: Blurred vision, Double vision, Drainage, Redness HEENT: Denies: Difficulty Hearing, Ear Pain, Eye Pain, Nasal Congestion, Sore Throat Cardiovascular: Denies: Chest Pain, Chest Pressure, Heaviness, Palpitations, Syncope Respiratory: Denies: Cough, Pleuritic Pain, Shortness of Breath, Sputum production, Wheezing Gastrointestinal: Reports: Abdominal Pain, Diarrhea, Nausea, Vomiting. Denies: Constipation, Hematochezia, Melena Genitourinary: Denies: Dysuria, Frequency, Hematuria Musculoskeletal: Denies: Arm Pain, Back Pain, Foot Pain Skin: Denies: Dryness, Rash Neurological: Denies: Balance problems, Double vision, Change in Speech, Slurred speech, Headaches, Incoordination, Numbness Psychiatric: Reports: Anxiety, Depression Endocrine: Denies: Change in Body Habitus, Polydipsia VTE Information - Inpt Only VTE Present on Admission: No VTE Mechan Device Prophylaxis: None VTE Pharm Prophylaxis ordered?: Yes - Physical Exam General: Alert, Oriented x3, Cooperative, No apparent distress HEENT: Atraumatic, PERRLA, EOMI Oral: No Gingival or Mucosal Lesions/ Ulcerations, Dry Mucosa Neck: Supple, No JVD, Negative Carotid Bruits, Trachea Midline, Thyroid Normal Size and Texture Lungs: Clear to auscultation, No rhonchi, No wheeze, No rales, Diminished Cardiovascular: Regular rate, Regular Rhythm, Normal S1, Normal S2, PMI Normal Abdomen: Bowel Sounds Present, Soft, Non Tender, Non-Distended, No Hepato-splenomegaly, - - Colostomy bag in place. Extremities: No clubbing, No cyanosis, No edema Skin: No rashes, Ulcer/ Wound, - - Stage III decubitus ulcer of the anal cleft, no evidence of significant erythema or swelling. Lymphatic: No Cervical, Supraclavicular, or Inguinal Adenopathy Neurological: Cranial nerves II-XII grossly intact, Motor Exam 5/5 strength throughout Psych/Mental Status: Normal Affect, Appropriate, Alert and oriented to time, place, person, mood and affect Vital Signs Temp Pulse Resp BP Pulse Ox 97.2 F L 75 18 165/92 H 100 10/23/17 11:55 10/23/17 11:55 10/23/17 11:55 10/23/17 11:55 10/23/17 11:55 Oxygen Delivery Method Room Air Laboratory Tests Assessment/Plan This is a 41 years old female patient presented to the medicine because of epigastric pain, nausea, vomiting and diarrhea and she was found to have mild acute pancreatitis and also she had recent history of C. difficile colitis and she was clinically dehydrated as well. #1 mild acute pancreatitis: With unclear etiology. Patient denied alcohol drinking. She is not on medication can cause pancreatitis. Her LFT was normal, gallstone pancreatitis is unlikely. Plan: Admit to [facility] floor, cardiac monitoring, keep on clear liquids, IV fluids, replace electrolytes as appropriate, IV morphine as needed for pain, IV antiemetics, repeat CMP and CBC as well as lipase tomorrow morning, PT OT evaluation and treatment. #2 intractable nausea and vomiting: Could be due to viral gastroenteritis, C. difficile colitis or gastroparesis. Patient has not been able to keep anything down to her stomach for the last 3 days. Plan: IV fluids, IV Phenergan, IV Zofran, IV Pepcid twice daily. #3 acute diarrhea illness: In context of recent history of C. difficile colitis. Her stool came back positive for toxigenic C. difficile DNA. Patient is not sure if she is done with treatment for C. difficile and she mentioned that she was on Flagyl, not sure. Plan: Start oral vancomycin, IV fluids as above. 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 According to the patient, she supposed to have wound VAC inserted today. Plan: Wound care nurse consult. #5 ESRD on hemodialysis: Nephrology consult, continue dialysis on Tuesdays, and Saturdays. #6 type 1 diabetes mellitus: Clear liquids, IV fluids, Accu- Cheks, insulin sliding scale, continue Levemir nightly, hold NovoLog pre-meals. #7 hypertension: Blood pressure was elevated. Continue Coreg and oral hydralazine as well as lisinopril, start IV hydralazine as needed. #8 chronic anemia: Secondary to anemia of chronic disease, hemoglobin is stable at baseline. #9 nonischemic cardiomyopathy/chronic systolic CHF: Stable, clinically compensated, no acute issues. Continue Coreg, lisinopril, gentle IV fluids for hydration to avoid volume overload. #10 gastroparesis: Plan as above. #11 DVT prophylaxis: Subcu heparin. This note was generated with [employer] dictation software. It may contain incorrect words, spelling, and punctuation that were not noted in checking the note before signing. Code Visit Inpatient E AND M: 82208 Init Hosp L3 10/23/17 1309 <Electronically signed by Francois Soler MD> Date [facility] Signature: Date (if applicable) CC: Francois Soler; Ric Mccrary MD Signed EMERGENCY DEPARTMENT Observed: 10/23/2017 Status: F Source: [place] SUMMARY 10:49 AM [facility] REPOSITORY [facility] Medical Records Department [address] [place] [address] Emergency Department Summary 10/23/17 1046 MR#: [id number] Acct: [id number] Name: KOURTNEY REZA Rep #: [id number] : 1975 41 From: Estrella Solano DO PCP: Ric Mccrary MD Status: PRE ER - ER Visit Summary Date of Service: 10/23/17 Chief Complaint: [Nausea, vomiting, diarrhea] History of Present Illness: The patient is a 41 F [presents the emergency department with issues with nausea and vomiting for more than a year. Patient states that she now cannot keep anything down despite attempting to take Phenergan at home. Patient has been told that she has gastroparesis related to her diabetes. Patient also states that her stools are more watery from her colostomy bag. Patient is concerned because she was treated for C. difficile recently. Patient's concern at the C. difficile may have come back. Patient has had some chills. Patient denies blood in her stool. Patient denies fevers at home. She denies any chest pain or shortness of breath.] Physical Examination: [HEENT-PERRLA, EOMI. Cranial nerves II through XII grossly intact. TMs clear. Mucous membranes moist. No adenopathy. Cardiovascular-regular rate and rhythm without murmur or ectopy Lungs-clear to auscultation, chest wall stable without crepitus or subcu emphysema Abdomen-normoactive bowel sounds, soft, colostomy left lower quadrant. Patient has some mild diffuse tenderness. There is no rebound, rigidity, or perineal signs. Extremities-intact 4, normal range of motion, normal pulses, atraumatic] Test Results: [EKG obtained on arrival showed a sinus rhythm with a ventricular rate of 78 bpm. CBC with differential showed a white count 7.6, hemoglobin 10, hematocrit 31, platelets 204. Chemistries unremarkable. BUN was 55 and creatinine was 6.54. LFTs were normal. Lipase was elevated 962. Troponin was less than 0.02. Stool was sent for C. difficile and results are pending] Emergency Department Course and Treatment: [Patient was given 500 cc fluid bolus. Patient was medicated with Dilaudid and Phenergan.] Treatment Plan: [Admit for IV fluids and pain control] Disposition: [Admit] Impression: [Abdominal pain/pancreatitis Vomiting Diarrhea-rule out C. difficile] This note was generated with [employer] software. It may contain incorrect words, spelling, and punctuation that were not noted in review of the chart prior to signing ED Disposition - Plan for ED Patient: Chief Complaint: Nausea/Vomiting/Diarrhea Referrals: Ric Mccrary MD [Primary Care Provider] - What to do if you have Problems For any increased pain, shortness of breath, bleeding, nausea or vomiting, chest pain, or any unexpected problems, contact your Primary Care Provider. Call [facility] ([phone]) or report to the closest Emergency Room. Call 911 if necessary. 10/23/17 1049 <Electronically signed by Estrella Solano DO> Date Estrella Solano DO Cosigner Signature (If Indicated): Date CC: Ric Mccrary MD Observed: 10/23/2017 Status: F Source: [place] RIVERAFF (MOLECULAR) 10:30 AM [facility] REPOSITORY Order Date: 10/23/17 Has pt arrived? Y Cdiff-Molecular RESULTS CALLED TO Joseph SCHAFER 10/23/17 1225 Farzana Aviles. REPORT READ BACK BY ALANIS. Copy of report sent to Infection Control Printer [id number] 10/23/17 737Christy SOTELO. Normal Reference Range = Negative C. Diff DNA Positive-Toxigenic C. Difficile DNA Detected NAAT METHOD Testing was performed using nucleic acid amplification ORGANISM 1: Toxigenic C. difficile DNA Performed By: #### M100.6796 #### [facility] [address] [place], [address] Observed: 10/23/2017 Status: F Source: [place] ENTERIC PATHOGEN 10:30 AM [facility] PANEL STOOL REPOSITORY Interface Comments: collected in ER EP PANEL STOOL Normal Reference Range = Not Detected Not detected for Campylobacter group, Salmonella species, Shigella species, Vibrio Group, Yersinia enterocolitica, EHEC (Shiga Toxin 1, Shiga Toxin 2), Norovirus Gl/Gll, and Rotavirus A. Other common stool pathogens are not detected on this panel include: Aeromonas/Plesiomonas or parasites. Order testing for these organisms separately if suspected. This is an amplified DNA test which makes it both specific and sensitive. CAMPYLOBACTER Not Detected Salmonella Not Detected Shigella sp. Not Detected Shiga Toxin Not Detected Yersinia Not Detected VIBRIO Not Detected Norovirus Not Detected Rotavirus Not Detected Performed By: #### M100.637 #### [facility] [address] [place], [place], [address] CBC W/DIFF, AUTOMATED Collected: 10/23/2017 Status: F Source: [place] 10:00 AM [facility] REPOSITORY TYPE CODE TESTS RESULT OUT OF RANGE REFERENCE UNITS LAB L100.1000 4.4-11.0 K/mm3 Normal WBC 7.6 LAB L100.1200 4.2-5.4 M/mm3 Low RBC 3.06 LAB L100.1300 12.0-15.0 g/dl Low HGB 10.0 LAB L100.1400 37-47 % Low HCT 30.6 LAB L100.1500 81-99 fL High MCV 100.0 LAB L100.1600 27.0-32.0 pg High MCH 32.7 LAB L100.1700 32-36 g/gl Normal MCHC 32.7 LAB L100.1810 11.6-14.6 % High RDW CV 14.8 LAB L100.1820 35.1-43.9 fl High RDW SD 51.9 LAB L100.1900 150-450 K/mm3 Normal PLT 204 LAB L100.2000 6.2-12.0 fl Normal MPV 7.9 LAB L100.2100 47-70 % High NEUT% 74.3 LAB L100.2200 19-41 % Low LY% 16.8 LAB L100.2300 0-10 % Normal MONO% 3.3 LAB L100.2400 0-5 % Normal EO% 4.7 LAB L100.2500 0-1 % Normal BASO% 0.4 LAB L100.2550 0.0-0.9 % Normal IM GRAN % 0.500 Result Comment: IG% - Immature Granulocytes (promyelocytes, myelocytes and metamyelocytes) > 1% indicates that a LEFT SHIFT is Present. LAB L100.2620 2.0-7.7 X10 3/uL Normal Absolute Neut 5.7 LAB L100.2720 0.83-4.51 X10 3/ul Normal Absolute Lymph 1.28 Performed By: #### L100.0100 #### [facility] [address] [place], [address] COMPREHENSIVE METABOLIC Collected: 10/23/2017 Status: F Source: [facility] 10:00 AM [facility] REPOSITORY Order Comment: 'TROP' Serial specimen #1, #2, #3, or #4: 1 TYPE CODE TESTS RESULT OUT OF RANGE REFERENCE UNITS LAB L501.0100 74-106 mg/dL High GLU 192 Result Comment: Fasting Glucose result greater than or equal to 126 mg/dL suggests DIABETES MELLITUS per A.D.A. criteria. Please note revised GLUCOSE reference range effective 2017. LAB L501.1000 7-18 mg/dL High BUN 55 LAB L501.1100 0.55-1.02 mg/dL High CREAT,SERUM 6.54 Result Comment: The validity of the calculated GFR AND GFRAA in patients over 70 years has not been determined. Clinical correlation is essential. LAB L501.1110 >60 mL/min Low EST GFR 7 Result Comment: Non- GFR Calc LAB L501.1115 >60 mL/min Low EST GFR - AA 9 Result Comment: GFR Calc LAB L501.1255 ml/min Normal Estimated CRCL 10.38 LAB L501.1300 10-20 RATIO Low BUN/CRE 8.4 LAB L501.1500 6.4-8. g/dL Normal 2 T PROT 7.9 LAB L501.1800 3.2-5. g/dL Low 0 ALB 2.5 LAB L501.1950 2.2-4. g/dL High 2 GLOB 5.4 LAB L501.2000 0.9-2. RATIO Low 4 A/G 0.5 LAB L501.2200 8.5-10 mg/dL Low .1 CA 8.2 LAB L501.4100 15-37 U/L Normal AST 18 LAB L501.4305 45-117 U/L Normal ALK P 86 LAB L501.4405 13-56 U/L Normal ALT 29 Result Comment: Please note revised ALT reference range effective 2017. LAB L501.4600 0.20-1.00 mg/dL Normal T BILI 0.20 LAB L501.5300 136-145 mmol/L Normal NA 139 LAB L501.5600 3.5-5.1 mmol/L Normal K 4.5 LAB L501.5900 98-107 mmol/L High CL 108 LAB L501.6100 21.0-32.0 mmol/L Normal CO2 21.0 LAB L501.6200 5-15 Normal GAP 10 Performed By: #### L500.4050, L501.2450, L501.4010 #### [facility] [address] [place], [place], [id number] LIPASE Collected: 10/23/2017 Status: F Source: [place] 10:00 [facility] REPOSITORY Order Comment: 'TROP' Serial specimen #1, #2, #3, or #4: 1 TYPE CODE TESTS RESULT OUT OF REFERENCE UNITS RANGE LAB L501.2450 73-393 U/L High LIPASE 962 Performed By: #### L500.4050, L501.2450, L501.4010 #### [facility] [address] [place], [place], [id number] TROPONIN-I Collected: 10/23/2017 Status: F Source: [place] 10:00 [facility] REPOSITORY Order Comment: 'TROP' Serial specimen #1, #2, #3, or #4: 1 TYPE CODE TESTS RESULT OUT OF RANGE REFERENCE UNITS LAB L501.4010 <0.06 ng/mL Normal < 0.02 TROPONIN-I Result Comment: TROPONIN-I EXPECTED VALUES <0.05 NEGATIVE 0.06 - 0.59 AT RISK OF [place] > OR = 0.60 SUGGEST [place] Performed By: #### L500.4050, L501.2450, L501.4010 #### [facility] [address] [place], [address] PROGRESS Observed: 10/03/2017 Status: COMPLETED Source: [place] 9:00 AM [facility] REPOSITORY HNO ID: [id number] Author: Chip López) Sherrill Service: (none) Author Type: Registered Nurse Type: Progress Notes Filed: 10/03/2017 9:02 AM Note Text: PRIMARY CARE COORDINATION DISCHARGE Patient has been identified by name and date of : Yes Patient discharged from Primary Care Coordination: YES Goals met Patient was a TCM only Goals not met Patient was a TCM only Patient knowledgeable and confident in contacting Health Care Providers for questions or concerns: YES Reinforced with patient and/or caregiver that Primary Care Coordination may be reinitiated if a change in status warrants navigation readmission: Not applicable Discussed with: PCP Agree What was the Focus/Challenges addressed in Care Coordination? Education on Chronic Disease Management Disposition: Follow up with PCP F/U with Nephrology Care Team Tab - End: YES Chip Tolliver RN CNPTOUTREACH Observed: 10/03/2017 Status: COMPLETED Source: [place] 12:00 AM [facility] REPOSITORY Patient Outreach (FAMPWS) KOURTNEY REZA ([id number]) 1975 F TRN Date Time Provider Department 10/03/17 CHIP TOLLIVER) DOUGWS During your visit today, we recorded the following information about you: Chip Tolliver RN 10/03/2017 9:02 AM Signed PRIMARY CARE COORDINATION DISCHARGE Patient has been identified by name and date of : Yes Patient discharged from Primary Care Coordination: YES Goals met Patient was a TCM only Goals not met Patient was a TCM only Patient knowledgeable and confident in contacting Health Care Providers for questions or concerns: YES Reinforced with patient and/or caregiver that Primary Care Coordination may be reinitiated if a change in status warrants navigation readmission: Not applicable Discussed with: PCP Agree What was the Focus/Challenges addressed in Care Coordination? Education on Chronic Disease Management Disposition: Follow up with PCP F/U with Nephrology Care Team Tab - ANDquot;EndANDquot;: YES Chip Tolliver RN Allergies As of Date: 10/03/2017 Noted Allergy Reaction LATEX 01/20/2006 2 - Rash NSAIDS (NON-STEROIDAL ANTI-INFLAM*05/12/2017 15 - Contraindication- [facility] [place]* PERCOCET (OXYCODONE-ACETAMINOPHEN)10/28/2013 1 - Mental Status Change REGLAN (METOCLOPRAMIDE) 07/03/2013 11 - Vomiting Date Reviewed: 08/30/2017 Reviewed by: Petty Zhang - Fully Assessed Reason for Visit: Cuff Matcher- Other [[id number]] Cmt: Previous discharge from Primary Care Coordination Prescriptions as of 10/03/2017 Sig: LISINOPRIL 20 MG TABLET Take 20 mg by mouth once naman* BUDESONIDE DR - ER 3 MG CAPSU* Take 2 capsules by mouth once* FLUOXETINE 40 MG CAPSULE Take 1 capsule by mouth once * ASPIRIN 81 MG TABLET,DELAYED * Take 1 tablet by mouth once d* NYSTATIN 100,000 UNIT/GRAM TO* Apply 1 application to affect* PROMETHAZINE 25 MG TABLET TAKE 1 TABLET BY MOUTH EVERY * CARVEDILOL 25 MG TABLET Take 1 tablet by mouth twice * ATORVASTATIN 20 MG TABLET Take 1 tablet by mouth daily * ERGOCALCIFEROL (VITAMIN D2) 5* Take 1 capsule by mouth once * IRON, CARBONYL 45 MG TABLET Take 1 tablet by mouth three * AMLODIPINE 10 MG TABLET Take 1 tablet by mouth once d* INSULIN ASPART U-100 100 UNI* 10 units three times a day wi* DILTIAZEM CR 240 MG CAP Take 1 capsule by mouth once * INSULIN GLARGINE (U-100) 100 * Inject 4 Units subcutaneously* PEN NEEDLE, DIABETIC 31 GAUGE* Use one needle per dose. 4 x * LANCETS Test blood sugar(s) 4- 6 times* BLOOD SUGAR DIAGNOSTIC STRIPS Test blood sugar(s) 4- 6 times* PEN NEEDLE, DIABETIC 29 GAUGE* 1 Each once daily. ALPRAZOLAM 0.5 MG TABLET Take 1 tablet by mouth as nee* BLOOD SUGAR DIAGNOSTIC STRIPS Test blood sugar(s) 4 times d* ALBUTEROL (BULK) [facility] BLOOD-GLUCOSE METER KIT Freestyle LITE Meter Kit - Problem List As Of Date 10/03/2017 Noted Resolved VULVAL ABSCESS [N76.4] INVALID FOR*10/28/2013 Retinopathy due to secondary diabetes mellitus * Proteinuria [R80.9] Renal insufficiency [N28.9] 03/06/2017 Neuropathy [G62.9] INVALID FOR* HTN (hypertension) [I10] INVALID FOR* Anxiety [F41.9] INVALID FOR* More... Diabetes mellitus [E11.9] INVALID FOR* Cardiomyopathy, nonischemic [I42.8] INVALID FOR* Iron deficiency [E61.1] INVALID FOR* Anemia [D64.9] INVALID FOR* Scar condition and fibrosis of skin: Atrophic D*INVALID FOR* Rosacea [L71.9] INVALID FOR* Other acne [L70.8] INVALID FOR* Telangiectasia [I78.1] INVALID FOR* Irritant dermatitis [L24.9] INVALID FOR* Nodulocystic acne [L70.0] INVALID FOR* Dysfunctional uterine bleeding [N93.8] INVALID FOR* Vitamin D deficiency [E55.9] INVALID FOR* Asthma [J45.909] INVALID FOR* Obesity [E66.9] INVALID FOR* CHF (congestive heart failure) (HCC) [I50.9] INVALID FOR* Chronic renal failure, stage 5 (HCC) [N18.5] INVALID FOR* More... Complication of dialysis access insertion (HCC)*INVALID FOR* GABRIEL (obstructive sleep apnea) [G47.33] INVALID FOR* More... Diarrhea, functional [K59.1] INVALID FOR* More... Encounter Status:Closed by CHIP TOLLIVER on 10/03/17 CBC W/DIFF Collected: 09/23/2017 Status: F Source: [facility] 6:04 AM [facility] REPOSITORY Order Comment: [place]: M TYPE CODE TESTS RESULT OUT OF RANGE REFERENCE UNITS LAB L200.20845 4.5-11.0 K/CU MM WBC Normal 7.2 LAB L200.62975 3.90-5.30 M/CU MM Low RBC 2.81 LAB L200.51665 11.5-15.5 G/DL Low HGB 9.1 LAB L200.69740 35.0-47.0 % Low HCT 27.0 LAB L200.89768 80.0-99.0 fl MCV Normal 96.1 LAB L200.41937 32.0-36.0 GM/DL MCHC Normal 33.7 LAB L200.70408 11-14.5 High RDW 15.2 LAB L200.03945 9.4-12.4 Low MPV 8.2 LAB L200.07196 150-450 K/CU MM PLT Normal 169 LAB L200.83745 45-75 % NEUTROPHILS Normal % 63.7 LAB L200.14395 Less than 2 % IMMATURE Normal GRAN % 0.6 LAB L200.62605 20-40 % LYMPH % Normal 24.0 LAB L200.61815 2-10 % MONOCYTE % Normal 7.6 LAB L200.05779 0-5 % EOSINOPHIL Normal % 3.5 LAB L200.52021 0-2 % BASOPHIL % Normal 0.6 LAB L200.19533 2.0-8.3 K/CU MM NEUTROPHIL Normal ABS 4.60 LAB L200.10985 Less than 2 K/CU MM IMMATR GRAN Normal ABS 0.00 LAB L200.44277 0.9-4.4 K/CU MM LYMPH ABS Normal 1.70 LAB L200.91659 0.1-1.1 K/CU MM MONO ABS Normal 0.60 LAB L200.44779 0-0.5 K/CU MM EOS ABS Normal 0.30 LAB L200.66282 0-0.2 K/CU MM BASO ABS Normal 0.00 LAB L200.54104 Less than 1 % NRBC Normal 0.0 Performed By: #### L200.19627 #### LABORATORY [address] [place] [address] CMP Collected: 09/23/2017 Status: F Source: [facility] 6:04 AM [facility] REPOSITORY Order Comment: [place]: M TYPE CODE TESTS RESULT OUT OF RANGE REFERENCE UNITS LAB L500.19274 136-145 MMOL/L Low NA 133 LAB L500.21864 3.5-5.1 MMOL/L Normal K 4.6 LAB L500.77175 98-107 MMOL/L Low CL 94 LAB L500.52135 21-32 MMOL/L Normal CO2 28 LAB L500.92042 5-16 MMOL/L Normal AGAP 11 LAB L500.01270 70-100 MG/DL Normal GLU 97 Result Comment: 70-100- Normal Fasting; 100-125 Impaired Fasting; greater than 126 on more than one result- Diabetes. ADA guidelines. Results may be falsely elevated after the administration of Sulfapyridine. Results may be falsely depressed after the administration of Sulfasalazine. LAB L500.10672 7-26 MG/DL High BUN 38 LAB L500.73069 0.510-0.950 MG/DL High CREAT 4.850 Result Comment: Patients receiving either N-Acetylcysteine (NAC) or Metamizole prior to venipuncture, may have falsely depressed results. LAB L500.44215 15-24 Low BUN/CREA 8 LAB L500.27895 6.0-8.5 GM/DL Normal TP 7.6 LAB L500.89628 3.2-5.0 GM/DL Low ALBUMIN 2.4 LAB L500.07762 2.2-4.2 GM/DL High GLOBULIN 5.2 LAB L500.33527 0.8-2.0 Low A/G RATIO 0.5 LAB L500.77207 8.5-10.1 MG/DL Low CALCIUM TOTAL 8.4 LAB L500.81391 0.2-1.0 MG/DL Normal BILI TOTAL 0.3 LAB L500.96879 8-34 U/L Normal SGOT (AST) 19 Result Comment: RESULTS MAY BE FALSELY DEPRESSED AFTER THE ADMINISTRATION OF SULFASALAZINE AND/OR SULFAPYRIDINE. LAB L500.12617 13-61 IU/L Normal SGPT (ALT) 15 Result Comment: RESULTS MAY BE FALSELY DEPRESSED AFTER THE ADMINISTRATION OF SULFASALAZINE AND/OR SULFAPYRIDINE. LAB L500.04844 45-117 U/L Normal ALK PHOS 69 Performed By: #### L500.57541, L500.50366 #### LABORATORY [address] [place] [address] GFR EST Collected: 09/23/2017 Status: F Source: [facility] 6:04 AM [facility] REPOSITORY Order Comment: [place]: M TYPE CODE TESTS RESULT OUT OF RANGE REFERENCE UNITS LAB L500.71632 ML/MIN Normal IF non-AFR 10 AMER LAB L500.21115 ML/MIN Normal IF 12 AMER Performed By: #### L500.32950, L500.70559 #### LABORATORY [address] [place] [address] CBC Collected: 09/22/2017 Status: F Source: [facility] 4:41 AM [facility] REPOSITORY Order Comment: [place]: M TYPE CODE TESTS RESULT OUT OF RANGE REFERENCE UNITS LAB L200.78349 4.5-11.0 K/CU MM Normal WBC 8.2 LAB L200.75240 3.90-5.30 M/CU MM Low RBC 2.35 LAB L200.58878 11.5-15.5 G/DL Low HGB 7.5 LAB L200.85013 35.0-47.0 % Low HCT 22.6 LAB L200.41601 80.0-99.0 fl Normal MCV 96.2 LAB L200.26552 32.0-36.0 GM/DL Normal MCHC 33.2 LAB L200.79897 11-14.5 High RDW 14.7 LAB L200.75235 9.4-12.4 Low MPV 8.0 LAB L200.52786 150-450 K/CU MM Normal PLT 207 LAB L200.78236 Less than 1 % Normal NRBC 0.4 Performed By: #### L200.44318 #### LABORATORY [address] [place] [id number] BMP Collected: 09/22/2017 Status: F Source: [facility] 4:41 AM [facility] REPOSITORY Order Comment: [place]: M TYPE CODE TESTS RESULT OUT OF RANGE REFERENCE UNITS LAB L500.16004 136-145 MMOL/L Low NA 134 LAB L500.05107 3.5-5.1 MMOL/L Normal K 4.0 LAB L500.64454 98-107 MMOL/L Normal CL 98 LAB L500.31047 21-32 MMOL/L Normal CO2 26 LAB L500.56744 5-16 MMOL/L Normal AGAP 11 LAB L500.71704 70-100 MG/DL High GLU 104 Result Comment: 70-100- Normal Fasting; 100-125 Impaired Fasting; greater than 126 on more than one result- Diabetes. ADA guidelines. Results may be falsely elevated after the administration of Sulfapyridine. Results may be falsely depressed after the administration of Sulfasalazine. LAB L500.91233 7-26 MG/DL High BUN 52 LAB L500.56653 0.510-0.950 MG/DL High CREAT 5.950 Result Comment: Patients receiving either N-Acetylcysteine (NAC) or Metamizole prior to venipuncture, may have falsely depressed results. LAB L500.98529 15-24 Low BUN/CREA 9 LAB L500.00681 8.5-10.1 MG/DL Low CALCIUM TOTAL 8.4 Performed By: #### L500.23643, L500.71022 #### LABORATORY [facility] [place] [address] GFR EST Collected: 09/22/2017 Status: F Source: [facility] 4:41 AM [facility] REPOSITORY Order Comment: [place]: M TYPE CODE TESTS RESULT OUT OF RANGE REFERENCE UNITS LAB L500.82854 ML/MIN Normal IF non-AFR 8 AMER LAB L500.24500 ML/MIN Normal IF 9 AMER Performed By: #### L500.32811, L500.25739 #### LABORATORY [facility] [place] [address] CBC W/DIFF Collected: 09/21/2017 Status: F Source: [facility] 5:40 AM [facility] REPOSITORY Order Comment: [place]: M TYPE CODE TESTS RESULT OUT OF RANGE REFERENCE UNITS LAB L200.12934 4.5-11.0 K/CU MM WBC Normal 6.4 LAB L200.17280 3.90-5.30 M/CU MM Low RBC 2.75 LAB L200.29467 11.5-15.5 G/DL Low HGB 8.8 LAB L200.76107 35.0-47.0 % Low HCT 26.7 LAB L200.61433 80.0-99.0 fl MCV Normal 97.1 LAB L200.23419 32.0-36.0 GM/DL MCHC Normal 33.0 LAB L200.37433 11-14.5 High RDW 15.1 LAB L200.74623 9.4-12.4 Low MPV 7.9 LAB L200.95867 150-450 K/CU MM PLT Normal 203 LAB L200.05049 45-75 % NEUTROPHILS Normal % 62.9 LAB L200.83711 Less than 2 % IMMATURE Normal GRAN % 1.6 LAB L200.13246 20-40 % LYMPH % Normal 23.9 LAB L200.57618 2-10 % MONOCYTE % Normal 7.1 LAB L200.83304 0-5 % EOSINOPHIL Normal % 3.9 LAB L200.31238 0-2 % BASOPHIL % Normal 0.6 LAB L200.12899 2.0-8.3 K/CU MM NEUTROPHIL Normal ABS 4.10 LAB L200.06820 Less than 2 K/CU MM IMMATR GRAN Normal ABS 0.10 LAB L200.31396 0.9-4.4 K/CU MM LYMPH ABS Normal 1.50 LAB L200.18331 0.1-1.1 K/CU MM MONO ABS Normal 0.50 LAB L200.94595 0-0.5 K/CU MM EOS ABS Normal 0.30 LAB L200.19782 0-0.2 K/CU MM BASO ABS Normal 0.00 LAB L200.28929 Less than 1 % NRBC Normal 0.0 Performed By: #### L200.34914 #### LABORATORY [address] [place] [address] CMP Collected: 09/21/2017 Status: F Source: [facility] 5:40 AM [facility] REPOSITORY Order Comment: [place]: TYPE CODE TESTS RESULT OUT OF RANGE REFERENCE UNITS LAB L500.39383 136-145 MMOL/L Low NA 133 LAB L500.14397 3.5-5.1 MMOL/L Normal K 4.2 LAB L500.87600 98-107 MMOL/L Low CL 95 LAB L500.70072 21-32 MMOL/L Normal CO2 28 LAB L500.86854 5-16 MMOL/L Normal AGAP 10 LAB L500.06748 70-100 MG/DL High GLU 115 Result Comment: 70-100- Normal Fasting; 100-125 Impaired Fasting; greater than 126 on more than one result- Diabetes. ADA guidelines. Results may be falsely elevated after the administration of Sulfapyridine. Results may be falsely depressed after the administration of Sulfasalazine. LAB L500.53870 7-26 MG/DL High BUN 34 LAB L500.62090 0.510-0.950 MG/DL High CREAT 4.430 Result Comment: Patients receiving either N-Acetylcysteine (NAC) or Metamizole prior to venipuncture, may have falsely depressed results. LAB L500.61701 15-24 Low BUN/CREA 8 LAB L500.57657 6.0-8.5 GM/DL Normal TP 7.7 LAB L500.41260 3.2-5.0 GM/DL Low ALBUMIN 2.4 LAB L500.42022 2.2-4.2 GM/DL High GLOBULIN 5.3 LAB L500.57827 0.8-2.0 Low A/G RATIO 0.5 LAB L500.41035 8.5-10.1 MG/DL Low CALCIUM TOTAL 8.3 LAB L500.73367 0.2-1.0 MG/DL Normal BILI TOTAL 0.4 LAB L500.69450 8-34 U/L Normal SGOT (AST) 22 Result Comment: RESULTS MAY BE FALSELY DEPRESSED AFTER THE ADMINISTRATION OF SULFASALAZINE AND/OR SULFAPYRIDINE. LAB L500.30647 13-61 IU/L Normal SGPT (ALT) 17 Result Comment: RESULTS MAY BE FALSELY DEPRESSED AFTER THE ADMINISTRATION OF SULFASALAZINE AND/OR SULFAPYRIDINE. LAB L500.40153 45-117 U/L Normal ALK PHOS 73 Performed By: #### L500.52606, L500.20158 #### LABORATORY [address] [place] [address] GFR EST Collected: 09/21/2017 Status: F Source: [facility] 5:40 AM [facility] REPOSITORY Order Comment: [place]: M TYPE CODE TESTS RESULT OUT OF RANGE REFERENCE UNITS LAB L500.52357 ML/MIN Normal IF non-AFR 11 AMER LAB L500.62669 ML/MIN Normal IF 13 AMER Performed By: #### L500.14520, L500.21003 #### LABORATORY [address] [place] [id number] CBC Collected: 09/17/2017 Status: F Source: [facility] 5:45 AM [facility] REPOSITORY Order Comment: [place]: M TYPE CODE TESTS RESULT OUT OF RANGE REFERENCE UNITS LAB L200.23406 4.5-11.0 K/CU MM Normal WBC 6.3 LAB L200.66553 3.90-5.30 M/CU MM Low RBC 2.52 LAB L200.62492 11.5-15.5 G/DL Low HGB 8.3 LAB L200.25265 35.0-47.0 % Low HCT 24.0 LAB L200.78964 80.0-99.0 fl Normal MCV 95.2 LAB L200.41023 32.0-36.0 GM/DL Normal MCHC 34.6 LAB L200.55574 11-14.5 High RDW 15.0 LAB L200.11008 9.4-12.4 Low MPV 8.4 LAB L200.06486 150-450 K/CU MM Normal PLT 251 LAB L200.71042 Less than 1 % Normal NRBC 0.6 Performed By: #### L200.12831 #### LABORATORY [address] [place] [address] BMP Collected: 09/17/2017 Status: F Source: [facility] 5:45 AM [facility] REPOSITORY Order Comment: [place]: M TYPE CODE TESTS RESULT OUT OF RANGE REFERENCE UNITS LAB L500.73107 136-145 MMOL/L Normal NA 136 LAB L500.98522 3.5-5.1 MMOL/L Normal K 4.5 LAB L500.10886 98-107 MMOL/L Normal CL 99 LAB L500.46971 21-32 MMOL/L Normal CO2 24 LAB L500.39430 5-16 MMOL/L Normal AGAP 13 LAB L500.82374 70-100 MG/DL High GLU 128 Result Comment: 70-100- Normal Fasting; 100-125 Impaired Fasting; greater than 126 on more than one result- Diabetes. ADA guidelines. Results may be falsely elevated after the administration of Sulfapyridine. Results may be falsely depressed after the administration of Sulfasalazine. LAB L500.04849 7-26 MG/DL High BUN 54 LAB L500.35781 0.510-0.950 MG/DL High CREAT 7.350 Result Comment: Patients receiving either N-Acetylcysteine (NAC) or Metamizole prior to venipuncture, may have falsely depressed results. LAB L500.84005 15-24 Low BUN/CREA 7 LAB L500.50959 8.5-10.1 MG/DL Normal CALCIUM TOTAL 8.5 Performed By: #### L500.59182, L500.54584 #### LABORATORY [address] [place] [address] GFR EST Collected: 09/17/2017 Status: F Source: [facility] 5:45 AM [facility] REPOSITORY Order Comment: [place]: M TYPE CODE TESTS RESULT OUT OF RANGE REFERENCE UNITS LAB L500.98792 ML/MIN Normal IF non-AFR 6 AMER LAB L500.79684 ML/MIN Normal IF 7 AMER Performed By: #### L500.65651, L500.86143 #### LABORATORY [address] [place] [address] BMP Collected: 09/15/2017 Status: F Source: [facility] 4:36 AM [facility] REPOSITORY Order Comment: [place]: M TYPE CODE TESTS RESULT OUT OF RANGE REFERENCE UNITS LAB L500.37705 136-145 MMOL/L Low NA 131 LAB L500.69217 3.5-5.1 MMOL/L Normal K 4.7 LAB L500.25870 98-107 MMOL/L Low CL 94 LAB L500.86667 21-32 MMOL/L Normal CO2 28 LAB L500.79864 5-16 MMOL/L Normal AGAP 9 LAB L500.24335 70-100 MG/DL High GLU 107 Result Comment: 70-100- Normal Fasting; 100-125 Impaired Fasting; greater than 126 on more than one result- Diabetes. ADA guidelines. Results may be falsely elevated after the administration of Sulfapyridine. Results may be falsely depressed after the administration of Sulfasalazine. LAB L500.70525 7-26 MG/DL High BUN 56 LAB L500.00113 0.510-0.950 MG/DL High alert CREAT 8.260 Result Comment: Critical Result(s) Called at: 05:50:36 on 09/15/2017 by: Em Everett to and read back by: AVILA WATT Patients receiving either N-Acetylcysteine (NAC) or Metamizole prior to venipuncture, may have falsely depressed results. LAB L500.94857 15-24 Low BUN/CREA 7 LAB L500.51212 8.5-10.1 MG/DL Low CALCIUM TOTAL 7.9 Performed By: #### L500.99274, L500.26449 #### LABORATORY [address] [place] [address] GFR EST Collected: 09/15/2017 Status: F Source: [facility] 4:36 AM [facility] REPOSITORY Order Comment: [place]: M TYPE CODE TESTS RESULT OUT OF RANGE REFERENCE UNITS LAB L500.18256 ML/MIN Normal IF non-AFR 5 AMER LAB L500.33672 ML/MIN Normal IF 6 AMER Performed By: #### L500.64543, L500.32830 #### LABORATORY [address] [place] [address] CBC Collected: 09/15/2017 Status: F Source: [facility] 4:36 AM [facility] REPOSITORY Order Comment: [place]: M TYPE CODE TESTS RESULT OUT OF RANGE REFERENCE UNITS LAB L200.09436 4.5-11.0 K/CU MM Normal WBC 4.8 LAB L200.38301 3.90-5.30 M/CU MM Low RBC 2.62 LAB L200.14307 11.5-15.5 G/DL Low HGB 8.2 LAB L200.13074 35.0-47.0 % Low HCT 24.9 LAB L200.14308 80.0-99.0 fl Normal MCV 95.0 Result Comment: Repeated and verified. LAB L200.63509 32.0-36.0 GM/DL Normal MCHC 32.9 LAB L200.45237 11-14.5 Normal RDW 14.5 LAB L200.75851 9.4-12.4 Low MPV 8.7 LAB L200.98859 150-450 K/CU MM Normal PLT 246 LAB L200.54659 Less than 1 % Normal NRBC 0.0 Performed By: #### L200.63810 #### LABORATORY [address] [phone] CBC W/DIFF Collected: 09/14/2017 Status: F Source: [facility] 4:53 AM [facility] REPOSITORY Order Comment: [place]: TYPE CODE TESTS RESULT OUT OF RANGE REFERENCE UNITS LAB L200.20533 4.5-11.0 K/CU MM WBC Normal 4.8 LAB L200.45499 3.90-5.30 M/CU MM Low RBC 2.60 LAB L200.92134 11.5-15.5 G/DL Low HGB 8.2 LAB L200.73774 35.0-47.0 % Low HCT 25.9 LAB L200.24954 80.0-99.0 fl High MCV 99.6 LAB L200.73698 32.0-36.0 GM/DL Low MCHC 31.7 LAB L200.02335 11-14.5 High RDW 15.1 LAB L200.31022 9.4-12.4 Low MPV 8.7 LAB L200.72562 150-450 K/CU MM PLT Normal 176 LAB L200.36586 45-75 % NEUTROPHILS Normal % 63.2 LAB L200.10981 Less than 2 % IMMATURE Normal GRAN % 0.8 LAB L200.01842 20-40 % LYMPH % Normal 20.1 LAB L200.64142 2-10 % High MONOCYTE % 11.1 LAB L200.18933 0-5 % EOSINOPHIL Normal % 4.2 LAB L200.15675 0-2 % BASOPHIL % Normal 0.6 LAB L200.07862 2.0-8.3 K/CU MM NEUTROPHIL Normal ABS 3.00 LAB L200.63720 Less than 2 K/CU MM IMMATR GRAN Normal ABS 0.00 LAB L200.90142 0.9-4.4 K/CU MM LYMPH ABS Normal 1.00 LAB L200.23986 0.1-1.1 K/CU MM MONO ABS Normal 0.50 LAB L200.37875 0-0.5 K/CU MM EOS ABS Normal 0.20 LAB L200.37664 0-0.2 K/CU MM BASO ABS Normal 0.00 LAB L200.19316 Less than 1 % NRBC Normal 0.0 Performed By: #### L200.70218 #### LABORATORY [address] [place] [address] CMP Collected: 09/14/2017 Status: F Source: [facility] 4:53 AM [facility] REPOSITORY Order Comment: [place]: TYPE CODE TESTS RESULT OUT OF RANGE REFERENCE UNITS LAB L500.35568 136-145 MMOL/L Low NA 133 LAB L500.05300 3.5-5.1 MMOL/L Normal K 4.4 LAB L500.62530 98-107 MMOL/L Low CL 94 LAB L500.86332 21-32 MMOL/L Normal CO2 30 LAB L500.73349 5-16 MMOL/L Normal AGAP 9 LAB L500.92521 70-100 MG/DL High GLU 139 Result Comment: 70-100- Normal Fasting; 100-125 Impaired Fasting; greater than 126 on more than one result- Diabetes. ADA guidelines. Results may be falsely elevated after the administration of Sulfapyridine. Results may be falsely depressed after the administration of Sulfasalazine. LAB L500.43722 7-26 MG/DL High BUN 37 LAB L500.42094 0.510-0.950 MG/DL High CREAT 6.140 Result Comment: Patients receiving either N-Acetylcysteine (NAC) or Metamizole prior to venipuncture, may have falsely depressed results. LAB L500.25702 15-24 Low BUN/CREA 6 LAB L500.97941 6.0-8.5 GM/DL Normal TP 7.3 LAB L500.69840 3.2-5.0 GM/DL Low ALBUMIN 2.2 LAB L500.43041 2.2-4.2 GM/DL High GLOBULIN 5.1 LAB L500.55432 0.8-2.0 Low A/G RATIO 0.4 LAB L500.72582 8.5-10.1 MG/DL Low CALCIUM TOTAL 8.0 LAB L500.08847 0.2-1.0 MG/DL Normal BILI TOTAL 0.3 LAB L500.25220 8-34 U/L Normal SGOT (AST) 26 Result Comment: RESULTS MAY BE FALSELY DEPRESSED AFTER THE ADMINISTRATION OF SULFASALAZINE AND/OR SULFAPYRIDINE. LAB L500.03724 13-61 IU/L Normal SGPT (ALT) 22 Result Comment: RESULTS MAY BE FALSELY DEPRESSED AFTER THE ADMINISTRATION OF SULFASALAZINE AND/OR SULFAPYRIDINE. LAB L500.06860 45-117 U/L Normal ALK PHOS 92 Performed By: #### L500.91735, L500.98946 #### LABORATORY [address] [place] [address] GFR EST Collected: 09/14/2017 Status: F Source: [facility] 4:53 AM [facility] REPOSITORY Order Comment: [place]: TYPE CODE TESTS RESULT OUT OF RANGE REFERENCE UNITS LAB L500.15465 ML/MIN Normal IF non-AFR 7 AMER LAB L500.70804 ML/MIN Normal IF 9 AMER Performed By: #### L500.52768, L500.22749 #### LABORATORY [address] [place] [address] CDIF PCR Collected: 09/13/2017 Status: F Source: [facility] 3:00 PM [facility] REPOSITORY Order Comment: [place]: TYPE CODE TESTS RESULT OUT OF REFERENCE UNITS RANGE LAB L770.00302 NEGATIVE High CDIF PCR POSITIVE Result Comment: FURTHER TESTING FOR C.DIFFICILE IS NOT NECESSARY UNTIL THE COURSE OF TREATMENT HAS BEEN COMPLETED. PLEASE CANCEL ANY OTHER PENDING ORDERS FOR C.DIFFICILE TOXIN. RESULTS CALLED TO REGGIE AT 1625 09/13/17 BY BRYANNA HAMILTON INFECTION CONTROL NOTIFIED 1625 09/13/17 BY BRYANNA HAMILTON THE PATIENT NEEDS TO BE PUT IN ISOLATION. Performed By: #### L770.55660 #### LABORATORY [address] [place] [address] TROPONIN I Collected: 09/12/2017 Status: F Source: [facility] 9:17 PM [facility] REPOSITORY Order Comment: [place]: M TYPE CODE TESTS RESULT OUT OF RANGE REFERENCE UNITS LAB L550.60090 0.000-0.045 NG/ML Normal TROPONIN I 0.020 Performed By: #### L550.15413 #### LABORATORY [address] [place] [address] TROPONIN I Collected: 09/12/2017 Status: F Source: [facility] 5:16 PM [facility] REPOSITORY Order Comment: [place]: M TYPE CODE TESTS RESULT OUT OF RANGE REFERENCE UNITS LAB L550.28595 0.000-0.045 NG/ML Normal TROPONIN I 0.018 Performed By: #### L550.28241 #### LABORATORY [address] [place] [address] CERV SP 3 VIEWS OR Observed: 09/12/2017 Status: F Source: [facility] 12:30 PM [facility] CERV SP 3 VIEWS OR LESS Ordering Physician: Jagjit Abraham DO 09/12/2017 12:30 PM CERVICAL SPINE three views: Clinical Statement: Left-sided weakness, pain Comparison: None FINDINGS: Routine views demonstrate a normal appearance of the vertebrae and disk spaces. The alignment is normal and the paraspinous soft tissues are normal. The posterior arches, neural foramina and atlantoaxial articulation appear normal. IMPRESSION: Normal cervical spine. ---- Electronic Signature on File ---- Signed By: Nahun Galarza MD PhD [email or web address] Dictated: 09/12/2017 2:03 PM Signed: 09/12/2017 2:08 PM Reported By: NAHUN GALARZA M.D. Signed By: NAHUN GALARZA M.D. CT HEAD/BRAIN W/O CON Observed: 09/12/2017 Status: F Source: [facility] 12:30 PM [facility] CT HEAD/BRAIN W/O CON Ordering Physician: Saud Bruce MD 09/12/2017 12:[address] HEAD/BRAIN WITHOUT IV CONTRAST: Clinical Statement: Left arm weakness which started yesterday, tingling over entire body Comparison: None TECHNIQUE: 2.5 mm axial tomographic images were acquired through the posterior fossa followed by 5 mm thick slices through the supratentorial brain without intravenous contrast administration. FINDINGS: No hemorrhage or extra-axial fluid collection is demonstrated. There is no CT evidence of an acute ischemic infarction. There is no mass lesion or shift of midline structures. The ventricles and basal cisterns are appropriate in size for the patient's age. Bilateral mild to moderate internal carotid atheromatous calcifications are identified. Mild right vertebral artery calcifications are also noted. The skull base and calvarium demonstrate no abnormality. The paranasal sinuses and mastoid air cells are clear bilaterally. The orbits are intact. IMPRESSION: No acute intracranial abnormality. Dictated by Underwater Trapper: Chelsea Ornelas MD Reviewed and Signed by: Chris Blank MD ---- Electronic Signature on File ---- Signed By: Chris Blank MD [email or web address] Dictated: 09/12/2017 1:18 PM Signed: 09/12/2017 2:26 PM Reported By: CHRIS BLANK M.D. Signed By: CHRIS BLANK M.D. [facility] Collected: 09/12/2017 Status: F Source: [facility] 4:29 AM [facility] REPOSITORY Order Comment: [place]: M TYPE CODE TESTS RESULT OUT OF RANGE REFERENCE UNITS LAB L500.70303 136-145 MMOL/L Low NA 134 LAB L500.23610 3.5-5.1 MMOL/L Normal K 4.3 LAB L500.78102 98-107 MMOL/L Low CL 92 LAB L500.74863 21-32 MMOL/L Normal CO2 31 LAB L500.74429 5-16 MMOL/L Normal AGAP 10 LAB L500.50419 70-100 MG/DL High GLU 102 Result Comment: 70-100- Normal Fasting; 100-125 Impaired Fasting; greater than 126 on more than one result- Diabetes. ADA guidelines. Results may be falsely elevated after the administration of Sulfapyridine. Results may be falsely depressed after the administration of Sulfasalazine. LAB L500.88371 7-26 MG/DL High BUN 38 LAB L500.50186 0.510-0.950 MG/DL High CREAT 5.770 Result Comment: Patients receiving either N-Acetylcysteine (NAC) or Metamizole prior to venipuncture, may have falsely depressed results. LAB L500.09011 15-24 Low BUN/CREA 7 LAB L500.01264 8.5-10.1 MG/DL Low CALCIUM TOTAL 8.2 Performed By: #### L500.83998, L500.39671 #### LABORATORY [address] [place] [address] GFR EST Collected: 09/12/2017 Status: F Source: [facility] 4:29 AM [facility] REPOSITORY Order Comment: [place]: M TYPE CODE TESTS RESULT OUT OF RANGE REFERENCE UNITS LAB L500.25843 ML/MIN Normal IF non-AFR 8 AMER LAB L500.35139 ML/MIN Normal IF 10 AMER Performed By: #### L500.33573, L500.47311 #### LABORATORY [address] [place] [address] CBC Collected: 09/12/2017 Status: F Source: [facility] 4:29 AM [facility] REPOSITORY Order Comment: [place]: M TYPE CODE TESTS RESULT OUT OF RANGE REFERENCE UNITS LAB L200.82770 4.5-11.0 K/CU MM Normal WBC 5.4 LAB L200.03570 3.90-5.30 M/CU MM Low RBC 2.84 LAB L200.64817 11.5-15.5 G/DL Low HGB 9.0 LAB L200.59176 35.0-47.0 % Low HCT 27.8 LAB L200.44056 80.0-99.0 fl Normal MCV 97.9 LAB L200.63053 32.0-36.0 GM/DL Normal MCHC 32.4 LAB L200.34131 11-14.5 High RDW 15.8 LAB L200.05535 9.4-12.4 Low MPV 8.6 LAB L200.30879 150-450 K/CU MM Normal PLT 165 LAB L200.34062 Less than 1 % Normal NRBC 0.0 Performed By: #### L200.24067, L550.05561 #### LABORATORY [address] [place], [place] [id number] HGB A1C GLYCOHB Collected: 09/12/2017 Status: F Source: [facility] 4:29 AM [facility] REPOSITORY Order Comment: [place]: M TYPE CODE TESTS RESULT OUT OF RANGE REFERENCE UNITS LAB L550.11259 4.3-6.0 % Normal HGB A1C 5.2 GLYCOHB Performed By: #### L200.15863, L550.66421 #### LABORATORY [address] [place] [address] CBC W/DIFF Collected: 09/09/2017 Status: F Source: [facility] 6:36 AM [facility] REPOSITORY Order Comment: [place]: M TYPE CODE TESTS RESULT OUT OF RANGE REFERENCE UNITS LAB L200.71600 4.5-11.0 K/CU MM WBC Normal 6.1 LAB L200.89293 3.90-5.30 M/CU MM Low RBC 2.71 LAB L200.63911 11.5-15.5 G/DL Low HGB 8.4 LAB L200.94104 35.0-47.0 % Low HCT 26.5 LAB L200.63067 80.0-99.0 fl MCV Normal 97.8 LAB L200.51739 32.0-36.0 GM/DL Low MCHC 31.7 LAB L200.70428 11-14.5 High RDW 16.2 LAB L200.51777 9.4-12.4 Low MPV 8.5 LAB L200.52139 150-450 K/CU MM Low PLT 145 LAB L200.36859 45-75 % NEUTROPHILS Normal % 69.6 LAB L200.32733 Less than 2 % IMMATURE Normal GRAN % 0.5 LAB L200.57566 20-40 % Low LYMPH % 18.8 LAB L200.25059 2-10 % MONOCYTE % Normal 6.7 LAB L200.19582 0-5 % EOSINOPHIL Normal % 3.9 LAB L200.22165 0-2 % BASOPHIL % Normal 0.5 LAB L200.66097 2.0-8.3 K/CU MM NEUTROPHIL Normal ABS 4.20 LAB L200.23061 Less than 2 K/CU MM IMMATR GRAN Normal ABS 0.00 LAB L200.98676 0.9-4.4 K/CU MM LYMPH ABS Normal 1.10 LAB L200.05277 0.1-1.1 K/CU MM MONO ABS Normal 0.40 LAB L200.09808 0-0.5 K/CU MM EOS ABS Normal 0.20 LAB L200.56425 0-0.2 K/CU MM BASO ABS Normal 0.00 LAB L200.55888 Less than 1 % NRBC Normal 0.0 Performed By: #### L200.04888 #### LABORATORY [address] [place] [id number] CMP Collected: 09/09/2017 Status: F Source: [facility] 6:36 AM [facility] REPOSITORY Order Comment: [place]: TYPE CODE TESTS RESULT OUT OF RANGE REFERENCE UNITS LAB L500.17373 136-145 MMOL/L Low NA 132 LAB L500.11858 3.5-5.1 MMOL/L Normal K 4.2 LAB L500.13221 98-107 MMOL/L Low CL 94 LAB L500.41944 21-32 MMOL/L Normal CO2 28 LAB L500.08555 5-16 MMOL/L Normal AGAP 10 LAB L500.74687 70-100 MG/DL High GLU 112 Result Comment: 70-100- Normal Fasting; 100-125 Impaired Fasting; greater than 126 on more than one result- Diabetes. ADA guidelines. Results may be falsely elevated after the administration of Sulfapyridine. Results may be falsely depressed after the administration of Sulfasalazine. LAB L500.25565 7-26 MG/DL High BUN 33 LAB L500.42569 0.510-0.950 MG/DL High CREAT 4.880 Result Comment: Patients receiving either N-Acetylcysteine (NAC) or Metamizole prior to venipuncture, may have falsely depressed results. LAB L500.99185 15-24 Low BUN/CREA 7 LAB L500.92243 6.0-8.5 GM/DL Normal TP 6.7 LAB L500.52397 3.2-5.0 GM/DL Low ALBUMIN 2.2 LAB L500.68517 2.2-4.2 GM/DL High GLOBULIN 4.5 LAB L500.35521 0.8-2.0 Low A/G RATIO 0.5 LAB L500.14665 8.5-10.1 MG/DL Low CALCIUM TOTAL 7.8 LAB L500.29062 0.2-1.0 MG/DL Normal BILI TOTAL 0.4 LAB L500.63089 8-34 U/L Normal SGOT (AST) 19 Result Comment: RESULTS MAY BE FALSELY DEPRESSED AFTER THE ADMINISTRATION OF SULFASALAZINE AND/OR SULFAPYRIDINE. LAB L500.28204 13-61 IU/L Normal SGPT (ALT) 15 Result Comment: RESULTS MAY BE FALSELY DEPRESSED AFTER THE ADMINISTRATION OF SULFASALAZINE AND/OR SULFAPYRIDINE. LAB L500.50363 45-117 U/L Normal ALK PHOS 75 Performed By: #### L500.83133, L500.31056 #### LABORATORY [address] [place] [address] GFR EST Collected: 09/09/2017 Status: F Source: [facility] 6:36 AM [facility] REPOSITORY Order Comment: [place]: M TYPE CODE TESTS RESULT OUT OF RANGE REFERENCE UNITS LAB L500.87527 ML/MIN Normal IF non-AFR 10 AMER LAB L500.51725 ML/MIN Normal IF 12 AMER Performed By: #### L500.33822, L500.81349 #### LABORATORY [address] [place] [address] HBSAG Collected: 09/09/2017 Status: F Source: [facility] 6:36 AM [facility] REPOSITORY Order Comment: [place]: M SPECIMEN SOURCE: BLOOD TYPE CODE TESTS RESULT OUT OF REFERENCE UNITS RANGE LAB L540.09055 NONREACTIVE NONREACTIVE Normal HBSAG Result Comment: RESULTS WERE OBTAINED WITH THE CENTAUR XP. VALUES OBTAINED WITH DIFFERENT MANUFACTURERS' ASSAY METHODS MAY NOT BE USED INTERCHANGEABLY. Performed By: #### L540.12832, L540.54819, L540.56826 #### LABORATORY [address] [place] [address] HEP B CORE IGM Collected: 09/09/2017 Status: F Source: [facility] 6:36 AM [facility] REPOSITORY Order Comment: [place]: M SPECIMEN SOURCE: BLOOD TYPE CODE TESTS RESULT OUT OF REFERENCE UNITS RANGE LAB L540.08992 NONREACTIVE NONREACTIVE Normal HEP B CORE IGM Result Comment: RESULTS WERE OBTAINED WITH THE [employer] CENTAUR XP ANTI-HBC IGM EIA. VALUES OBTAINED WITH DIFFERENT MANUFACTURERS' ASSAY METHODS MAY NOT BE USED INTERCHANGEABLY. Performed By: #### L540.18554, L540.04615, L540.25096 #### LABORATORY [address] [place] [address] HEP B AB QUANT Collected: 09/09/2017 Status: F Source: [facility] 6:36 AM [facility] REPOSITORY Order Comment: [place]: M SPECIMEN SOURCE: BLOOD TYPE CODE TESTS RESULT OUT OF RANGE REFERENCE UNITS LAB L540.70016 0.00-9.99 mIU/mL High HEP B AB 10.80 QUANT Result Comment: STATUS OF IMMUNITY Protective Immunity: greater than or equal to 10 mIU/mL (Traceable to WHO International Reference Preparation) No Protective Immuniity: less than 10 mIU/mL Note: The magnitude of the measured result above the cutoff is not indicative of the total amount of antibody present. Performed By: #### L540.79400, L540.43741, L540.02595 #### LABORATORY [address] [place] [address] CBC W/DIFF Collected: 09/07/2017 Status: F Source: [facility] 4:24 AM [facility] REPOSITORY Order Comment: [place]: M TYPE CODE TESTS RESULT OUT OF RANGE REFERENCE UNITS LAB L200.68639 4.5-11.0 K/CU MM WBC Normal 5.3 LAB L200.45759 3.90-5.30 M/CU MM Low RBC 2.80 LAB L200.15799 11.5-15.5 G/DL Low HGB 8.7 LAB L200.49857 35.0-47.0 % Low HCT 27.4 LAB L200.77143 80.0-99.0 fl MCV Normal 97.9 LAB L200.58688 32.0-36.0 GM/DL Low MCHC 31.8 LAB L200.31383 11-14.5 High RDW 16.9 LAB L200.42387 9.4-12.4 Low MPV 8.6 LAB L200.09041 150-450 K/CU MM PLT Normal 156 LAB L200.11734 45-75 % NEUTROPHILS Normal % 66.6 LAB L200.42200 Less than 2 % IMMATURE Normal GRAN % 0.6 LAB L200.36255 20-40 % LYMPH % Normal 21.1 LAB L200.88200 2-10 % MONOCYTE % Normal 8.4 LAB L200.97604 0-5 % EOSINOPHIL Normal % 2.7 LAB L200.84811 0-2 % BASOPHIL % Normal 0.6 LAB L200.07337 2.0-8.3 K/CU MM NEUTROPHIL Normal ABS 3.50 LAB L200.09710 Less than 2 K/CU MM IMMATR GRAN Normal ABS 0.00 LAB L200.22150 0.9-4.4 K/CU MM LYMPH ABS Normal 1.10 LAB L200.51358 0.1-1.1 K/CU MM MONO ABS Normal 0.40 LAB L200.28943 0-0.5 K/CU MM EOS ABS Normal 0.10 LAB L200.63147 0-0.2 K/CU MM BASO ABS Normal 0.00 LAB L200.28832 Less than 1 % NRBC Normal 0.0 Performed By: #### L200.27403 #### LABORATORY [address] [place] [address] CMP Collected: 09/07/2017 Status: F Source: [facility] 4:24 AM [facility] REPOSITORY Order Comment: [place]: TYPE CODE TESTS RESULT OUT OF RANGE REFERENCE UNITS LAB L500.54311 136-145 MMOL/L Normal NA 136 LAB L500.57238 3.5-5.1 MMOL/L Normal K 4.1 LAB L500.81690 98-107 MMOL/L Low CL 97 LAB L500.92258 21-32 MMOL/L Normal CO2 29 LAB L500.23865 5-16 MMOL/L Normal AGAP 10 LAB L500.15124 70-100 MG/DL High GLU 105 Result Comment: 70-100- Normal Fasting; 100-125 Impaired Fasting; greater than 126 on more than one result- Diabetes. ADA guidelines. Results may be falsely elevated after the administration of Sulfapyridine. Results may be falsely depressed after the administration of Sulfasalazine. LAB L500.12908 7-26 MG/DL Normal BUN 26 LAB L500.52347 0.510-0.950 MG/DL High CREAT 4.390 Result Comment: Patients receiving either N-Acetylcysteine (NAC) or Metamizole prior to venipuncture, may have falsely depressed results. LAB L500.55995 15-24 Low BUN/CREA 6 LAB L500.23721 6.0-8.5 GM/DL Normal TP 6.5 LAB L500.49520 3.2-5.0 GM/DL Low ALBUMIN 2.2 LAB L500.13026 2.2-4.2 GM/DL High GLOBULIN 4.4 LAB L500.65714 0.8-2.0 Low A/G RATIO 0.5 LAB L500.43092 8.5-10.1 MG/DL Low CALCIUM TOTAL 7.8 LAB L500.09825 0.2-1.0 MG/DL Normal BILI TOTAL 0.4 LAB L500.96206 8-34 U/L Normal SGOT (AST) 17 Result Comment: RESULTS MAY BE FALSELY DEPRESSED AFTER THE ADMINISTRATION OF SULFASALAZINE AND/OR SULFAPYRIDINE. LAB L500.96102 13-61 IU/L Low SGPT (ALT) 12 Result Comment: RESULTS MAY BE FALSELY DEPRESSED AFTER THE ADMINISTRATION OF SULFASALAZINE AND/OR SULFAPYRIDINE. LAB L500.88055 45-117 U/L Normal ALK PHOS 61 Performed By: #### L500.21032, L500.27213 #### LABORATORY [address] [place] [address] GFR EST Collected: 09/07/2017 Status: F Source: [facility] 4:24 AM [facility] REPOSITORY Order Comment: [place]: M TYPE CODE TESTS RESULT OUT OF RANGE REFERENCE UNITS LAB L500.69867 ML/MIN Normal IF non-AFR 11 AMER LAB L500.23096 ML/MIN Normal IF 13 AMER Performed By: #### L500.34065, L500.03494 #### LABORATORY [address] [place] [address] CBC W/DIFF Collected: 09/06/2017 Status: F Source: [facility] 4:59 AM [facility] REPOSITORY Order Comment: [place]: M TYPE CODE TESTS RESULT OUT OF RANGE REFERENCE UNITS LAB L200.76318 4.5-11.0 K/CU MM WBC Normal 5.1 LAB L200.67734 3.90-5.30 M/CU MM Low RBC 2.63 LAB L200.46263 11.5-15.5 G/DL Low HGB 8.3 LAB L200.37192 35.0-47.0 % Low HCT 25.9 LAB L200.06905 80.0-99.0 fl MCV Normal 98.5 LAB L200.24654 32.0-36.0 GM/DL MCHC Normal 32.0 LAB L200.54406 11-14.5 High RDW 17.0 LAB L200.71208 9.4-12.4 Low MPV 8.6 LAB L200.18264 150-450 K/CU MM Low PLT 148 LAB L200.49181 45-75 % NEUTROPHILS Normal % 67.6 LAB L200.20656 Less than 2 % IMMATURE Normal GRAN % 0.6 LAB L200.13748 20-40 % LYMPH % Normal 21.4 LAB L200.99118 2-10 % MONOCYTE % Normal 7.6 LAB L200.91111 0-5 % EOSINOPHIL Normal % 2.4 LAB L200.68084 0-2 % BASOPHIL % Normal 0.4 LAB L200.07268 2.0-8.3 K/CU MM NEUTROPHIL Normal ABS 3.50 LAB L200.16329 Less than 2 K/CU MM IMMATR GRAN Normal ABS 0.00 LAB L200.19260 0.9-4.4 K/CU MM LYMPH ABS Normal 1.10 LAB L200.95965 0.1-1.1 K/CU MM MONO ABS Normal 0.40 LAB L200.75422 0-0.5 K/CU MM EOS ABS Normal 0.10 LAB L200.18033 0-0.2 K/CU MM BASO ABS Normal 0.00 LAB L200.39632 Less than 1 % NRBC Normal 0.0 Performed By: #### L200.32555 #### LABORATORY [address] [place] [address] CMP Collected: 09/06/2017 Status: F Source: [facility] 4:59 AM [facility] REPOSITORY Order Comment: [place]: M TYPE CODE TESTS RESULT OUT OF RANGE REFERENCE UNITS LAB L500.10252 136-145 MMOL/L Low NA 135 LAB L500.77554 3.5-5.1 MMOL/L Normal K 3.8 LAB L500.63229 98-107 MMOL/L Low CL 97 LAB L500.11509 21-32 MMOL/L Normal CO2 28 LAB L500.83686 5-16 MMOL/L Normal AGAP 10 LAB L500.43069 70-100 MG/DL High GLU 166 Result Comment: 70-100- Normal Fasting; 100-125 Impaired Fasting; greater than 126 on more than one result- Diabetes. ADA guidelines. Results may be falsely elevated after the administration of Sulfapyridine. Results may be falsely depressed after the administration of Sulfasalazine. LAB L500.51814 7-26 MG/DL High BUN 40 LAB L500.31788 0.510-0.950 MG/DL High CREAT 6.340 Result Comment: Patients receiving either N-Acetylcysteine (NAC) or Metamizole prior to venipuncture, may have falsely depressed results. LAB L500.86961 15-24 Low BUN/CREA 6 LAB L500.17965 6.0-8.5 GM/DL Normal TP 6.2 LAB L500.42359 3.2-5.0 GM/DL Low ALBUMIN 2.0 LAB L500.98448 2.2-4.2 GM/DL Normal GLOBULIN 4.2 LAB L500.97672 0.8-2.0 Low A/G RATIO 0.5 LAB L500.51171 8.5-10.1 MG/DL Low CALCIUM TOTAL 7.5 LAB L500.50401 0.2-1.0 MG/DL Normal BILI TOTAL 0.4 LAB L500.02827 8-34 U/L Normal SGOT (AST) 19 Result Comment: RESULTS MAY BE FALSELY DEPRESSED AFTER THE ADMINISTRATION OF SULFASALAZINE AND/OR SULFAPYRIDINE. LAB L500.57941 13-61 IU/L Low SGPT (ALT) 10 Result Comment: RESULTS MAY BE FALSELY DEPRESSED AFTER THE ADMINISTRATION OF SULFASALAZINE AND/OR SULFAPYRIDINE. LAB L500.11288 45-117 U/L Normal ALK PHOS 72 Performed By: #### L500.21390, L500.64964, L500.49009, L500.84923 #### LABORATORY [facility] [place] [address] GFR EST Collected: 09/06/2017 Status: F Source: [facility] 4:59 AM [facility] REPOSITORY Order Comment: [place]: M TYPE CODE TESTS RESULT OUT OF RANGE REFERENCE UNITS LAB L500.07231 ML/MIN Normal IF non-AFR 7 AMER LAB L500.42714 ML/MIN Normal IF 9 AMER Performed By: #### L500.20917, L500.99168, L500.60715, L500.87559 #### LABORATORY [address] [place] [address] PHOS Collected: 09/06/2017 Status: F Source: [facility] 4:59 AM [facility] REPOSITORY Order Comment: [place]: M TYPE CODE TESTS RESULT OUT OF RANGE REFERENCE UNITS LAB L500.61058 2.5-4.9 MG/DL Normal PHOS 4.7 Performed By: #### L500.97187, L500.72206, L500.71611, L500.08065 #### LABORATORY [address] [place] [address] MAGNESIUM Collected: 09/06/2017 Status: F Source: [facility] 4:59 AM [facility] REPOSITORY Order Comment: [place]: M TYPE CODE TESTS RESULT OUT OF RANGE REFERENCE UNITS LAB L500.22259 1.6-2.6 MG/DL Normal MAGNESIUM 1.8 Performed By: #### L500.55835, L500.45769, L500.40478, L500.20249 #### LABORATORY [address] [place] [address] ZINC Collected: 09/06/2017 Status: F Source: [facility] 4:59 AM [facility] REPOSITORY Order Comment: [place]: M TYPE CODE TESTS RESULT OUT OF RANGE REFERENCE UNITS LAB L550.49591 56-134 ug/dL Low ZINC 49 Result Comment: Detection Limit = 5 Performed At: [facility] [id number] Amanda Cho MD [id number] Performed By: #### L550.62440 #### [facility] [address] [place] [address] # [phone] LTACH Observed: 09/05/2017 Status: UNK Source: [facility] 6:09 PM [facility] [place] REPOSITORY Apparently, this 41-year-old white female, obese, diabetic, with end-stage renal failure on dialysis, initially presented to the hospital with a large amount of bleeding from a surgical wound in the left gluteal region from previous treatment for extensive pilonidal cyst ulcers. She presented with a hemoglobin of only 5.2. She required transfusion. The bleeding was unable to be stopped with packing. She was apparently status post excision of recurrent extensive complicated pilonidal cyst ulcers with left gluteal extension and necrotizing anal sphincter muscle involvement back in late July. A diverting colostomy was done at that time. She was initially treated with vancomycin, ceftazidime, and Flagyl for wound cultures showing Enterococcus avium, E. coli, group G Streptococcus, and anaerobes. She continued on anticoagulation, hemodialysis and was stabilized and transferred here for further care. PAST MEDICAL HISTORY: End-stage renal disease on hemodialysis, diabetes type 1 since age 23. Hypertension, congestive heart failure, depression and anxiety, hyperlipidemia, obstructive sleep apnea, morbid obesity, gastroparesis, tobaccoism, nonischemic cardiomyopathy, history of iron-deficiency anemia due to chronic blood loss, status post dysmenorrhea and hysterectomy. He is also status post repair of a patent ductus arteriosus at a very young age. ALLERGIES: She has a history of allergies to LATEX, LEVAQUIN, REGLAN, NSAIDS, and PERCOCET. She is status post incision and drainage abscess on the left breast. History of left ankle surgery, appendectomy, fistula placement, left upper extremity. SOCIAL HISTORY: She is a smoker, nondrinker. FAMILY HISTORY: Cancer, COPD, diabetes, hypertension, renal disease, and stroke. REVIEW OF SYSTEMS: As above. Apparently, she has a history of easy bleeding. She has a lot of pain, especially with wound dressing changes and asks for morphine prior to her dressing changes in addition to her routine Dilaudid. CURRENT MEDICATIONS: Include 1. Xanax 0.5 mg twice daily as needed for anxiety. 2. Milk of magnesia 30 mL daily as needed for constipation. 3. Hydralazine 25 mg 3 times a day. 4. Diltiazem 240 mg daily. 5. PhosLo 667 mg 3 times a day with meals. 6. Novolog 8 units 3 times a day with meals. 7. Vitamin D 50,000 units every Monday. 8. Aspirin 81 mg daily. 9. Lantus insulin 5 units at bedtime. 10. Phenergan 25 mg every 6 hours as needed for nausea. 11. Sodium bicarbonate 650 mg every Monday, Monday, Monday. [facility] PATIENT NAME: KOURTNEY REZA Yamilet Escoto [facility] REC #: [id number] [place] [address] ADMIT DATE: DISCHARGE DATE: ATTENDING PHY: Jagjit Abraham DO 12. Lisinopril 20 mg daily. 13. Prilosec 20 mg daily. 14. Tylenol 650 every 6 hours as needed for mild pain. 15. Dilaudid 2 mg every 4 hours as needed for moderate to severe pain. 16. Edmar twice daily. 17. Fluoxetine 40 mg daily. 18. Zofran 4 mg as needed for nausea every 6 hours. 19. Coreg 25 mg twice daily. There does not appear to be any DVT prophylaxis ordered, so given her recent bleed, it might be better to use SCDs. PHYSICAL EXAMINATION: General: A well-developed, well-nourished and very pleasant morbidly obese white female lying in bed in relative comfort. She has some ongoing pain, but she is comfortable presently. Vital signs: Include a temperature of 97.8, pulse 80, respirations 18, blood pressure 154/79. Oxygen is 98% on room air. Head: Normocephalic, atraumatic. Eyes: EOMI. PERRLA. Sclerae anicteric. Nose and throat: Moist. No lesions. Neck: No JVD, carotid bruits, thyromegaly. Lymphatics: None noted. Skin: Warm and dry. Back: Without lesions. She has extensive dressing and a diverting colostomy. Abdomen: Soft. Otherwise, nontender. Heart: Regular rate and rhythm. Extremities: No clubbing, cyanosis, or edema. Neurologic: Nonfocal. LABORATORY DATA: So far include: A white count of 5.1, hemoglobin 8.3, 148,000 platelets. Sodium 135, potassium 3.8. BUN 40 and creatinine 6.3. Glucose is 166. Albumin is 2. IMPRESSION: Morbidly obese white female with obstructive sleep apnea who is type 1 diabetic and on hemodialysis for end-stage renal disease, admitted for ongoing wound care following acute blood loss anemia from extensive surgery for pilonidal cysts with abscess and a diverting colostomy. Renal physician is consulted for ongoing dialysis. Infectious disease was consulted for antibiotic therapy and wound care has been consulted for treatment of her sacral and gluteal wound. Further management based on patient's course. Petty Sierra MD /[id number] [facility] PATIENT NAME: KOURTNEY REZA Yamilet Escoto MEDICAL REC #: [id number] [place] [id number] ADMIT DATE: DISCHARGE DATE: ATTENDING PHY: Jagjit Abraham DO [facility] File#: [id number] Verified/Reviewed by [facility] PATIENT NAME: KOURTNEY REZA Yamilet Escoto MEDICAL REC #: [id number] [place] [address] ADMIT DATE: DISCHARGE DATE: ATTENDING PHY: Jagjit Abraham DO LTACHCR Observed: 09/05/2017 Status: UNK Source: [facility] 6:09 PM [facility] DATE OF CONSULTATION: 09/06/2017 REASON FOR CONSULTATION: End stage renal disease on dialysis. HISTORY OF PRESENT ILLNESS: Ms. Reza is a pleasant 41-year-old patient with a history of end stage renal disease secondary to type 1 diabetes mellitus. The patient has been hemodialysis since 2 years through the left upper extremity AV fistula. She normally receives hemodialysis at the [facility] in [place] and follows with Dr. Martinez. The patient was admitted to the hospital last week after she underwent drainage of large abscess on her buttock which was believed to be due to pilonidal ulcer. The patient tells me that after the surgery she was sent to a rehabilitation unit and while there she went to her regular outpatient unit for hemodialysis. Following hemodialysis she coughed and developed profuse bleeding from the surgical wound in the left buttock. Her hemoglobin dropped to 5.2 g/dL and she was sent to the hospital. There the wound was packed which stopped the bleeding. Following this, the patient was sent to [facility] for further management. Currently, the patient feels well and had no complaints. PAST MEDICAL HISTORY: Includes history of end stage renal disease on hemodialysis Monday, Monday and Monday, diabetes mellitus type 1, hypertension, CHF, depression, anxiety, hyperlipidemia, gastroparesis, obstructive sleep apnea. PAST SURGICAL HISTORY: Includes history of left upper extremity AV fistula placement, left gluteal drainage of pilonidal cyst ulcers, bleeding from the wound requiring packing. SOCIAL HISTORY: The patient is a chronic smoker. No history of alcohol or illicit drug use. ALLERGIES: No known allergies documented in the chart. HOME MEDICATIONS: List not sent with the patient so I am unable to review those. CURRENT MEDICATIONS IN HOSPITAL: Reviewed. REVIEW OF SYSTEMS: A detailed 10-point review of systems was obtained including constitutional, HEENT, respiratory, cardiovascular, gastrointestinal, genitourinary, skin, musculoskeletal, endocrine and neurological. The patient states she has pain at the surgical site. Denies fever. Did have some chills. Denies nausea, vomiting, diarrhea. Denies shortness of breath. The rest of the review of systems is negative. PHYSICAL EXAMINATION: Vital Signs: Temperature 97.7, heart rate 78, respiratory rate 17 per minute, blood pressure 143/81 mmHg, 98% on room air. Intake and output not charted. [facility] PATIENT NAME: KOURTNEY REZA Yamilet Escoto MEDICAL REC #: [id number] [place] [address] ADMIT DATE: DISCHARGE DATE: ATTENDING PHY: Jagjit Abraham DO Extremities: Bilateral lower extremities low edema. Left upper extremity AV fistula with good thrill and bruit present. Respirations: Breath sounds bilaterally equal, clear. Cardiovascular: S1 and S2 present, regular. Central Nervous System: Awake, oriented x3. Abdomen: Soft. She has a dressing on the left gluteal region. LABORATORY DATA: CBC this morning shows hemoglobin 8.3, hematocrit 25.9, WBC count 5.1, platelet count 148. Sodium 135, potassium 3.8, chloride 97, bicarbonate 28, BUN 40, creatinine 6.3, total bilirubin 6.2, albumin 2, globulin 4.2, calcium 7.5, phosphorus 4.7. ASSESSMENT AND PLAN: Ms. Reza is a pleasant 41-year-old patient with a history of end stage renal disease on hemodialysis Monday, Monday and Monday who has been transferred to [facility] following hospitalization for massive bleeding from her gluteal wound. 1. End stage renal disease: The patient will continue dialysis on Monday, Monday and Monday here according to her regular schedule. Will use 3 K bath today to patient's dry weight. Will not use heparin during dialysis in view of her large wound and history of bleeding from the wound. Will use saline flushes. 2. Hypertension. Will controlled. Continue lisinopril, Coreg and all hypertensive medications that she is on currently. 3. Anemia. The patient's hemoglobin had dropped to 5.2 g/dL. Today's hemoglobin is 8.3 g/dL post transfusion. The patient is on ____ as an outpatient. Last dose seems to have been on August 04. Will give EPO 10,000 units ____ while here. 4. ____. Phosphorus well controlled. Continue PhosLo 1 tablet t.i.d. with meals. 5. Complex left gluteal wound. Management per [facility]. Thank you for allowing us to participate in the care of this patient. Please do not hesitate to call for any questions or concerns. Further recommendations to follow clinical course. Avani French MD STRAWHAT SIZER/[id number] [facility] File#: [id number] Verified/Reviewed by [facility] PATIENT NAME: KOURTNEY REZA [address] Yamilet Escoto MEDICAL REC #: [id number] [place] [address] ADMIT DATE: DISCHARGE DATE: ATTENDING PHY: Jagjit Abraham Observed: 09/05/2017 Status: UNK Source: [place] [address]:09 PM [facility] REPOSITORY DATE OF CONSULTATION: 09/06/2017 REASON FOR CONSULTATION: Acute and chronic pain. HISTORY OF PRESENT ILLNESS: This is a very pleasant 41-year-old patient with multiple problems to include pilonidal cyst that led to an abscess, requiring extensive debridement and requiring dressing changes, end- stage renal disease on dialysis, obstructive sleep apnea, depression, anxiety disorder, hypertension, cardiomyopathy, diabetes with diabetic neuropathy. ALLERGIES: Include LATEX and OXYCODONE. CURRENT MEDICATIONS: 1. Prozac. 2. P. r.n. Tylenol. 3. Dilaudid 2 mg every 4 hours p.r.n. 4. Morphine 1 mg IV with dressing changes. The patient was examined, and the chart was reviewed. I did discuss pain management options with the patient. She has agreed to the following treatment plan: 1. Discontinue p.o. Dilaudid which was ineffective. 2. Change to MSIR 15 mg p.o. every 12 hours p.r.n. with precaution parameters to include hold if sedated, confused, respiratory less than 12 per minute, blood pressure decrease greater than equal to 20% of baseline. 3. Increase morphine to 2 mg IV with dressing changes with the same precaution parameters as above. I will continue to follow the patient during inpatient hospitalization. MD VESNA Madden/[id number] [facility] File#: [id number] Verified/Reviewed by 09/07/17 Charley ZHENG PATIENT NAME: KOURTNEY REZA [address] [facility] Escoto MEDICAL REC #: [id number] [place] [address] ADMIT DATE: DISCHARGE DATE: CONSULTATION REPORT ATTENDING ANNA: Jagjit Abraham DO LTACHCR Observed: 09/05/2017 Status: UNK Source: [facility] 6:09 PM [facility] REPOSITORY DATE OF CONSULTATION: 09/07/2017 CHIEF COMPLAINTS: 1. Post surgery open wound of the back, sacral as well as on the left hip area, size 17 x 5 x 8 cm. 2. Type 1 diabetes mellitus. 3. History of recurrent pilonidal cyst. HISTORY OF PRESENT ILLNESS: This is a 41-year-old white female who has a long history of type 1 diabetes which was discovered at age 16. The patient has several problems with the surgeries. At one time, she developed a pilonidal cyst which was operated on 3 different occasions and it has caused some deep infections, some multiple abscesses on the back, the sacral, as well as on the left hip areas. She was recently operated on at [facility] and he has done a major excision of the area of which involves skin, subcutaneous tissues, underlying muscle, all the way up to the sacral bone and had extended this excision into the left gluteal area. There was a very large wound which was treated initially with dressings. The patient had massive bleeding postoperatively until she bled down to about 5 g of hemoglobin and the bleeding was controlled most likely with sutures. Once the bleeding was controlled, the patient was then sent to [facility] for further recovery. PAST HISTORY: 1. She has a history of diabetes mellitus type 1. 2. The patient is a smoker, just quit smoking about a month ago. 3. The patient has been several times. The last time she had a live baby which was 9 years ago. 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 4. The patient also has history of multiple pilonidal cysts which had been previously excised. PHYSICAL EXAMINATION: General: She is fairly alert. Vital signs are stable. Lying comfortably in bed. Requires some pain medications for change of dressings. She has a very hoarse voice suggesting evidence of long-term smoking. The patient also has a history of diabetes mellitus. Her vision is fine. Heart: Clear. Lungs: Clear. Abdomen: Showed a long scar from her previous C section which is fairly well healed now. Skin: On sacral and gluteal examination, there is a large wound that overlies the sacral area, extends towards the lumbar spine. It includes the skin, subcutaneous tissues and muscles and this wound curves over towards the left gluteal area which has been all excised. There have been several stitches to control the bleeding. The patient had a colostomy done for which this has left contamination of this area. The [facility] PATIENT NAME: [facility] MED[facility] REC #: [id number] [place] [address] ADMIT DATE: DISCHARGE DATE: ATTENDING PHY: Jagjit Abraham DO wound is slightly deep. It measures about 8-cm deep, but the full skin can be brought together without any problem. There has been moderate amount of drainage noted in this area. IMPRESSION: 1. Extensive large open wound postsurgical on the sacral and the left gluteal area. 2. Type 1 diabetes mellitus. 3. History of recurrent of pilonidal cyst. PLAN OF TREATMENT: At this time, the wound appears to be fairly clean. No evidence of any necrotic tissue noted. I advised if possible, a wound VAC can be started and we will follow the wound as it improved. Because the tissues can be brought without any tension, I believe she may heal spontaneously but would take several weeks to month for this to happen. Surgical closure at this time may cause problems with infection, retention of abscesses and I would hold on the surgical closure at this time. I will be following the patient while she is in the [facility] and after discharge. If the wound can be treated with a wound VAC, I can follow her as an outpatient at [facility]. She may have to be transferred to a residential for further care. Ozzy Diane MD [id number] [facility] File#: [id number] Verified/Reviewed by [facility] PATIENT NAME: [facility] MEDICAL REC #: [id number] [place] [address] ADMIT DATE: DISCHARGE DATE: ATTENDING PHY: Jagjit Abraham DO DOSESHALONDA Observed: 09/05/2017 Status: UNK Source: [facility] 6:09 PM [facility] REPOSITORY Test Dose report. Name: LIBIA Araujo Accession Number: [id number] Dose Type: CT Exam: HEAD Max CTDIVol: 71.51 mGy DLP: 805.37 mGy*cm CT 5 CT HEAD/BRAIN W/O CON 805.0926995534 71.4770763758 94682.2700433251 3000.1645834104 30.8996506258 498373 Head 300.0000 300.0000 1 09449.4637326424 3000.5467036189 30.2955470706 593184 Head 300.0000 300.0000 1 [id number] 5000.8918094334 1150.2437579370 740486 Head 69.9565743366 357.4231589251 10.0000 1.0200 48.5700 1000.0000 171855 1 9.714 332333.2222769522 9000.1184133063 1800.1789352002 PATIENT NAME: KOURTNEY REZA [address] Escoto MEDICAL REC #: [id number] [place] [address] ADMIT DATE: DISCHARGE DATE: DOSETRACK ATTENDING PHY: Jagjit Abraham DO [id number] Head 40.8873870806 376.9691207118 10.0000 1.0200 86.9100 1000.0000 403688 1 9.657 327440.1810730126 1000.8651060796 230.3846942568 471183 Head 71.1365788135 71.1339380329 10.0000 1.0000 7.6700 1000.0000 962478 1 7.67 PATIENT NAME: KOURTNEY REZA [facility] Dr[address] Escoto MEDICAL REC #: [id number] [place] [address] ADMIT DATE: DISCHARGE DATE: JULIAN ATTENDING PHY: Jagjit Abraham Observed: 09/05/2017 Status: UNK Source: [facility] 6:09 PM [facility] REPOSITORY DATE OF CONSULTATION: 09/14/2017 REASON FOR CONSULTATION: Routine diabetic foot care. REFERRING PHYSICIAN: Dr. Petty Sierra HISTORY OF PRESENT ILLNESS: This is a pleasant 41-year-old female currently admitted [facility] following infection of a sebaceous cyst to her backside. The patient tells me that she did delay seeking treatment in regards to this because she was afraid. Subsequently, the cyst did increase quite significantly in size and did develop infection. The patient was status post excision of recurrent cyst with extensive necrotizing anal sphincter muscle involvement in July. She has subsequently had to get a diverting colostomy. The patient does have a very complicated past medical history in addition to this. Podiatry was consulted for routine toenail debridement. She tells me that she has seen Dr. Hedrick of [place] in the past. It has been quite some time. She did see him for routine toenail care. PAST MEDICAL HISTORY: 1. End-stage renal disease on hemodialysis. 2. Type 2 diabetes with lower extremity peripheral neuropathy. 3. Hypertension. 4. Congestive heart failure. 5. Depression. 6. Anxiety. 7. Hyperlipidemia. 8. Obstructive sleep apnea. 9. Morbid obesity. 10. Gastroparesis. 11. Tobaccoism. 12. Nonischemic cardiomyopathy. 13. Iron deficiency anemia due to chronic blood loss. PAST SURGICAL HISTORY: 1. Status post hysterectomy. 2. Repair of patent ductus arteriosus 3. Diverting colostomy. 4. Incision and drainage of abscess to left breast. 5. Left ankle surgery. 6. Appendectomy. 7. Fistula placement in left upper extremity. SOCIAL HISTORY: The patient is a smoker. Denies any alcohol or illicit drug use. FAMILY HISTORY: Positive for cancer, COPD, diabetes, hypertension, renal disease, PATIENT NAME: KOURTNEY REZA [facility] [address] Escoto MEDICAL REC #: [id number] [place] [address] ADMIT DATE: DISCHARGE DATE: CONSULTATION REPORT ATTENDING PHY: Jagjit Abraham DO and stroke. MEDICATIONS: These are listed in the patient's chart and reviewed today. ALLERGIES: 1. LATEX. 2. LEVAQUIN. 3. REGLAN. 4. NSAIDS. 5. PERCOCET. REVIEW OF SYSTEMS: Please see past medical history and history of present illness. The patient does continue to have some discomfort to the wound on her backside. She is also a little nauseous today. Denies fever or chills. PHYSICAL EXAMINATION: DP and PT pulses of bilateral lower extremities are palpable +2/4. Skin is warm to warm proximal to distal with a brisk capillary refill time. Protective sensation, as well as sharp and dull touch is absent. The patient does relate paresthesias to the lower extremities as well. Upon evaluation of the integument, the patient with thickened, elongated, painful mycotic and incurvated toenails 1 through 5 bilaterally with some minimal debris. Due to the appearance of the patient's nails today, routine toenail debridement was performed with the nail nipper. Nails 1 through 5 bilaterally were debrided in thickness and length without incident. ASSESSMENT AND PLAN: This is a pleasant 41-year-old female with a very complicated past medical history, as well as current medical issue. At this time, from a podiatric standpoint, the patient is to follow up with her syrup filterer, Dr. Hedrick for routine nail care every 3-4 months. She is encouraged to call with any questions or issues prior to that appointment time. Thank you kindly for the consultation. Mani Trejo DPM [id number] [facility] File#: [id number] CC: Jagjit Abraham DO CC: Petty Sierra MD PATIENT NAME: KOURTNEY REZA [facility] [address] Escoto MEDICAL REC #: [id number] [place] [address] ADMIT DATE: DISCHARGE DATE: CONSULTATION REPORT ATTENDING PHY: Jagjit Abraham DO PATIENT NAME: KOURTNEY REZA [facility] [address] Escoto MEDICAL REC #: [id number] [place] [address] ADMIT DATE: DISCHARGE DATE: CONSULTATION REPORT ATTENDING PHY: Jagjit Abraham DO LTACHCR Observed: 09/05/2017 Status: UNK Source: [facility] 6:09 PM [facility] REPOSITORY DATE OF CONSULTATION: 09/14/2017 REASON FOR CONSULTATION: Routine diabetic foot care. REFERRING PHYSICIAN: Dr. Petty Sierra HISTORY OF PRESENT ILLNESS: This is a pleasant 41-year-old female currently admitted to [facility] following infection of a sebaceous cyst to her backside. The patient tells me that she did delay seeking treatment in regards to this because she was afraid. Subsequently, the cyst did increase quite significantly in size and did develop infection. The patient was status post excision of recurrent cyst with extensive necrotizing anal sphincter muscle involvement in July. She has subsequently had to get a diverting colostomy. The patient does have a very complicated past medical history in addition to this. Podiatry was consulted for routine toenail debridement. She tells me that she has seen Dr. Hedrick of [place] in the past. It has been quite some time. She did see him for routine toenail care. PAST MEDICAL HISTORY: 1. End-stage renal disease on hemodialysis. 2. Type 2 diabetes with lower extremity peripheral neuropathy. 3. Hypertension. 4. Congestive heart failure. 5. Depression. 6. Anxiety. 7. Hyperlipidemia. 8. Obstructive sleep apnea. 9. Morbid obesity. 10. Gastroparesis. 11. Tobaccoism. 12. Nonischemic cardiomyopathy. 13. Iron deficiency anemia due to chronic blood loss. PAST SURGICAL HISTORY: 1. Status post hysterectomy. 2. Repair of patent ductus arteriosus 3. Diverting colostomy. 4. Incision and drainage of abscess to left breast. 5. Left ankle surgery. 6. Appendectomy. 7. Fistula placement in left upper extremity. SOCIAL HISTORY: The patient is a smoker. Denies any alcohol or illicit drug use. FAMILY HISTORY: Positive for cancer, COPD, diabetes, hypertension, renal disease, and stroke. [facility] PATIENT NAME: KOURTNEY REZA Yamilet Escoto MEDICAL REC #: [id number] [place] [address] ADMIT DATE: DISCHARGE DATE: ATTENDING JAQUELINEY: Jagjit Abraham DO MEDICATIONS: These are listed in the patient's chart and reviewed today. ALLERGIES: 1. LATEX. 2. LEVAQUIN. 3. REGLAN. 4. NSAIDS. 5. PERCOCET. REVIEW OF SYSTEMS: Please see past medical history and history of present illness. The patient does continue to have some discomfort to the wound on her backside. She is also a little nauseous today. Denies fever or chills. PHYSICAL EXAMINATION: DP and PT pulses of bilateral lower extremities are palpable +2/4. Skin is warm to warm proximal to distal with a brisk capillary refill time. Protective sensation, as well as sharp and dull touch is absent. The patient does relate paresthesias to the lower extremities as well. Upon evaluation of the integument, the patient with thickened, elongated, painful mycotic and incurvated toenails 1 through 5 bilaterally with some minimal debris. Due to the appearance of the patient's nails today, routine toenail debridement was performed with the nail nipper. Nails 1 through 5 bilaterally were debrided in thickness and length without incident. ASSESSMENT AND PLAN: This is a pleasant 41-year-old female with a very complicated past medical history, as well as current medical issue. At this time, from a podiatric standpoint, the patient is to follow up with her syrup filterer, Dr. Hedrick for routine nail care every 3-4 months. She is encouraged to call with any questions or issues prior to that appointment time. Thank you kindly for the consultation. Mani Trejo DPM [id number] [facility] File#: [id number] CC: Jagjit Abraham DO CC: Petty Sierra MD Verified/Reviewed by [facility] PATIENT NAME: KOURTNEY REZA [facility] Dr[address] Escoto [facility] REC #: [id number] [place] [address] ADMIT DATE: DISCHARGE DATE: ATTENDING PHY: Jagjit Abraham DO LTACHCR Observed: 09/05/2017 Status: UNK Source: [facility] 6:09 PM [facility] REPOSITORY DATE OF CONSULTATION: 09/06/2017 REASON FOR CONSULTATION: Acute and chronic pain. HISTORY OF PRESENT ILLNESS: This is a very pleasant 41-year-old patient with multiple problems to include pilonidal cyst that led to an abscess, requiring extensive debridement and requiring dressing changes, end- stage renal disease on dialysis, obstructive sleep apnea, depression, anxiety disorder, hypertension, cardiomyopathy, diabetes with diabetic neuropathy. ALLERGIES: Include LATEX and OXYCODONE. CURRENT MEDICATIONS: 1. Prozac. 2. P. r.n. Tylenol. 3. Dilaudid 2 mg every 4 hours p.r.n. 4. Morphine 1 mg IV with dressing changes. The patient was examined, and the chart was reviewed. I did discuss pain management options with the patient. She has agreed to the following treatment plan: 1. Discontinue p.o. Dilaudid which was ineffective. 2. Change to MSIR 15 mg p.o. every 12 hours p.r.n. with precaution parameters to include hold if sedated, confused, respiratory less than 12 per minute, blood pressure decrease greater than equal to 20% of baseline. 3. Increase morphine to 2 mg IV with dressing changes with the same precaution parameters as above. I will continue to follow the patient during inpatient hospitalization. MD VESNA Madden/[id number] [facility] File#: [id number] Verified/Reviewed by [facility] PATIENT NAME: KOURTNEY REZA [address] Escoto MEDICAL REC #: [id number] [place] [address] ADMIT DATE: DISCHARGE DATE: ATTENDING PHY: Jagjit Abraham DO LTACHDS Observed: 09/05/2017 Status: UNK Source: [facility] 6:09 PM [facility] REPOSITORY DATE OF ADMISSION: 09/05/2017 DATE OF DISCHARGE: 09/23/2017 HISTORY: The patient is a 41-year-old female with type 1 diabetes, end-stage renal disease on dialysis, presented with a large amount of bleeding from a surgical wound in the left gluteal area from previous treatment for extensive pilonidal cyst ulcers. She had a low hemoglobin and required transfusion when she came in and ended up having a diverting colostomy. She was treated with vancomycin, ceftazidime, and Flagyl for wound culture showing Enterococcus avium, E coli, and group G streptococcus and anaerobes. The patient was transferred here to [facility] Hospital for continued wound care. She developed Clostridium difficile colitis here and was being treated for that on Flagyl. She saw the production control specialist here as well and had continued wound care with a wound VAC and currently is not on any further antibiotics at this time. She is going to be going to a nursing facility to continue with her wound care and wound VAC and that way she will be able to get inpatient dialysis there as well. DISCHARGE DIAGNOSES: 1. End-stage renal disease on hemodialysis. 2. Clostridium difficile colitis. 3. Gluteal wounds. 4. Anemia. 5. Hypertension. 6. Type 1 diabetes. DO GLADIS [id number] SSI File#: [id number] Verified/Reviewed by [facility] PATIENT NAME: KOURTNEY REZA [address] [place] MEDICAL REC #: [id number] [place] [address] ADMIT DATE: DISCHARGE DATE:09/23/17 ATTENDING PHY: Jagjit Abraham DO DISCHARGE SUMMARY Observed: 09/05/2017 Status: F Source: [place] 12:47 PM [facility] REPOSITORY [facility] Medical Records Department [address] [place] [address] Discharge Summary 09/05/17 1224 MR#: [id number] Acct: [id number] Name: KOURTNEY REZA Rep #: [id number] : 1975 41 From: Reji Maya DO PCP: Ric Mccrary MD Status: ADM IN Location: [place] [address] Discharge Date and Diagnosis - Problem List Patient Problems: Active and Suspected Problems Acute blood loss anemia (Acute) Date of Admission: 09/02/17 Date of Discharge: 09/05/17 - Primary Discharge Diagnosis Active and Suspected Problems Acute blood loss anemia (Acute) due to hemorrhage from recent surgical site itz cleft Hypokalemia - Secondary Discharge Diagnosis Chronic Problems CAD (coronary artery disease) (Chronic) Anemia, chronic disease (Chronic) - ESRD Smoker (Chronic) Pilonidal cyst with abscess (Chronic) - S/P extensive debridement 08/15/2017 S/P diverting transverse colostomy 08/17/2017 GABRIEL (obstructive sleep apnea) (Chronic) ESRD on dialysis (Chronic) Depression (Chronic) Anxiety (Chronic) HTN (hypertension) (Chronic) - not adequately controlled Nonischemic cardiomyopathy (Chronic) With ejection fraction 45 - 50%; with angiographically normal coronary arteries 05/2013; follows up with Dr. Underwood S/P repair of PDA (patent ductus arteriosus) (Chronic) At young age Diabetes mellitus type 1 (Chronic) HGBA1C is 7.8% Hyperlipidemia (Chronic) Obesity (BMI 30.0-34.9) (Chronic) Gastroparesis (Chronic) Hospital Course and Treatment Consultations 09/02/17 04:42 Consult: Onc/Wound/grease rack worker Routine Comment: Dr. Kayode Munroe-plastic surgery [place] [facility] Operations: None, - - diverting colostomy, pilonidal cyst debridement Procedures: None Summary of Care Provided: Patient is a 41-year-old female with a past medical history of end-stage renal disease on hemodialysis for 2 years, diabetes mellitus type 1 with peripheral neuropathy and gastroparesis, hypertension, hyperlipidemia, tobacco dependence, morbid obesity, left ventricular diastolic dysfunction and coronary artery disease (history of PCI or CABG) managed medically who presented to the ER at [facility] on 09/02/17 from [facility] with bleeding from a recent surgical site on the buttocks and sacrum. On 08/15/2017 she had extensive debridement of recurrent complicated pilonidal cyst/ulcers with gluteal extension and necrotizing anal sphincter muscle involvement. On 08/17/2017 she had a laparoscopic transverse colostomy with lysis of adhesions done by Dr. Zhang. She was transferred to a assisted facility on 08/21/2017 on PO metronidazole, ceftazidime and Vanco which were to conclude on 09/01. Hemoglobin at the time of admission was 6.9 and dropped to 5.2 at its reyna. She was transfused with 7 units of packed red blood cells while in the hospital. Hemoglobin on 09/04/2017 was 8.3 and platelets and white blood cell count were within normal limits. She has been afebrile throughout the course of her hospital stay and vital signs have been stable. There is no evidence of wound infection at this time. There is no odor, no purulent discharge and no periwound erythema. There is good granulation tissue in the base of the wound with a very small spot that appears to be necrotic and is approximately the size of a dime. ASA was held at admission due to the bleeding but there has been no further bleeding from the surgical site and she is going to resume ASA on DC. Blood sugars in the hospital have been very well controlled and are all less than 200. She was transferred to an LTAC on 09/05/2017 for continued wound care and hemodialysis. At the time of DC she was alert and appeared in no distress. The lungs were CTA and the heart had a RRR with no MM and no gallop. She has no peripheral edema and no rashes. She will follow-up with Dr. Mccrary following discharge from LTAC. She will also need to follow-up with Dr. Munroe following discharge from the LTAC. This note was generated with [employer] dictation software. It may contain incorrect words, spelling, and punctuation that were not noted in checking the note before signing. Home Medications: Medications to take at Discharge Diltiazem HCl [Tiazac] 240 mg PO DAILY 07/10/15 Aspirin [Aspirin, Baby] 81 mg PO DAILY@0800 01/26/16 Calcium Acetate [Phoslo Gel Cap] 667 mg PO TIDCM 01/26/16 Ergocalciferol [Vitamin D] 50,000 unit PO FR 01/26/16 Insulin Aspart [Novolog Flexpen] 8 units SC TIDCM 01/26/16 Insulin Glargine,Hum.rec.anlog [Lantus] 5 unit SQ QHS 01/09/17 ProMETHAzine [Phenergan] 25 mg PO Q6H PRN PRN #10 tablet 03/06/17 Lisinopril 20 mg PO DAILY 03/29/17 Omeprazole Magnesium [Prilosec Otc] 20 mg PO DAILY 03/29/17 Sodium Bicarbonate 650 mg PO MOWEFR 03/29/17 Acetaminophen [Tylenol Tablet] 650 mg PO Q6H PRN PRN tablet 03/31/17 Carvedilol [Coreg (Beta Lewis)] 25 mg PO BID 06/17/17 Ondansetron [Zofran Odt] 4 mg PO Q8H PRN PRN #10 tablet 08/06/17 Fluoxetine HCl 40 mg PO DAILY 09/02/17 ALPRAZolam [Xanax] 0.5 mg PO BID PRN PRN tablet 09/05/17 Glucerna Shake 120 ml PO 4X/DAY liquid 09/05/17 HydrALAZINE [Apresoline] 25 mg PO TID #1 tablet 09/05/17 HydromorphONE [Dilaudid] 2 mg PO Q4H PRN PRN #30 tab 09/05/17 Magnesium Hydroxide [Milk Of Magnesia] 30 ml PO DAILY PRN PRN udc 09/05/17 Following Prescrptions Were Given to Patient: HydromorphONE [Dilaudid] 2 mg PO Q4H PRN PRN #30 tab PRN Reason: Mod-Severe Pain (-05/02) HydrALAZINE [Apresoline] 25 mg PO TID #1 tablet Primary Care Physician: Ric Mccrary MD [Primary Care Provider] - Please follow up with your Primary Care Physician in: Following discharge from the LTAC Please Follow Up With: Kayode Munroe MD When: Following discharge from LTAC Disposition: Communications Manager Acute Care Minutes spent on discharge:: 45 Patient Condition:: Stable Meaningful Use Info Meaningful Use Diagnoses (Choose all that apply): None applicable Code Visit Inpatient E AND M: [id number] Disch Hosp 09/05/17 1247 <Electronically signed by Reji Maya DO> Date Reji Maya DO Cosigner Signature (if applicable): Date CC: Jennifer Maya; Kayode Munroe MD; Ric Mccrary MD Signed TRANSFER TO [facility] Observed: 09/05/2017 Status: F Source: [facility] 12:22 PM [facility] REPOSITORY [facility] Medical Records Department [address] [place] [address] Transfer to [facility] MR#: [id number] Acct: [id number] Name: KOURTNEY REZA Rep #: [id number] : 1975 41 From: Reji Maya DO PCP: Ric Mccrary MD Status: ADM IN KOURTNEY REZA (Patient) (Health Ins. Claim No.) (Day of Discharge to Facility) Certification of patient admission REQUIRED AT TIME OF ADMISSION. I CERTIFY THAT POST-HOSPITAL ECF SERVICES ARE REQUIRED TO BE GIVEN ON AN IN-PATIENT BASIS BECAUSE OF THE ABOVE NAMED PATIENT'S NEED FOR USP CARE ON A CONTINUING BASIS FOR THE CONDITION(S) FOR WHICH HE/SHE WAS RECEIVING IN-PATIENT HOSPITAL SERVICES PRIOR TO HIS/HER TRANSFER TO THE ECF. 09/05/17 1222 <Electronically signed by Reji Maya DO> Date Reji Molina Puneetandrey DO - Diet 09/02/17 02:59 Diet: Calorie Controlled How many daily calories?: 1800 calorie with Edmar 1 pkt BID - Routine Orders/Code Status Routine Lab Work: - - CBC, renal profile 09/08 - Wound(s) buttocks Wound Type: Pressure Injury cleft Wound Type: Open Surgical Wound Dressing Change: Aquacel AG with NS moistened kerlix - Suggestions for Active Care Change Position every (hours): 2 Positions to Avoid: flat on her back - Therapies Weight Bearing: Full weight bearing - Problem/Diagnosis (1) Acute blood loss anemia Status: Acute Current Visit: Yes (2) Anemia, chronic disease Status: Chronic Current Visit: No (3) Anxiety Status: Chronic Current Visit: No (4) CAD (coronary artery disease) Status: Chronic Current Visit: No (5) Depression Status: Chronic Current Visit: No (6) Diabetes mellitus type 1 Status: Chronic Current Visit: No (7) ESRD on dialysis Status: Chronic Current Visit: No (8) Gastroparesis Status: Chronic Current Visit: No (9) HTN (hypertension) Status: Chronic Current Visit: No (10) Hyperlipidemia Status: Chronic Current Visit: No (11) Iron deficiency anemia due to chronic blood loss Status: Resolved Comment: Dysmenorrhea history, s/p hysterectomy. Current Visit: No (12) 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 Current Visit: No (13) Nonischemic cardiomyopathy Status: Chronic Comment: With ejection fraction 45 - 50%; with angiographically normal coronary arteries 05/2013; follows up with Dr. Underwood Current Visit: No (14) Obesity (BMI 30.0-34.9) Status: Chronic Current Visit: No (15) GABRIEL (obstructive sleep apnea) Status: Chronic Current Visit: No (16) Pilonidal cyst with abscess Status: Chronic Current Visit: No (17) S/P repair of PDA (patent ductus arteriosus) Status: Chronic Comment: At young age Current Visit: No (18) Smoker Status: Chronic Current Visit: No (19) Systolic congestive heart failure Status: Resolved Current Visit: No - Allergies/Procedures Done in Hospital Allergies/Adverse Reactions: Allergies latex Allergy (Verified 08/12/17 02:03) Rash levofloxacin [From Levaquin] Adverse Reaction (Verified 08/12/17 02:03) PT CAN'T REMEMBER PT CAN'T REMEMBER metoclopramide HCl [From Reglan] Adverse Reaction (Verified 08/12/17 02:03) Nausea NSAIDS (Non-Steroidal Anti-Inflamma Adverse Reaction (Verified 08/12/17 02:03) kidney function oxycodone HCl [From Percocet] Adverse Reaction (Verified 08/12/17 02:03) HALLUCINATIONS Procedures: None - Type of Care/Length of Stay Estimated LOS: Convalescent Care Less Than 30 days Type of Care Needed: LTAC Rehab Potential: Good Prognosis: Good - Additional Orders/Day of Discharge H AND P will serve as current which was dated: 09/02/17 Day of Discharge: 09/05/17 - Dietary and Speech Recommendations Dietitian Recommendations/Changes: Recommend 1 pkt Edmar BID for wound healing. - Follow Up Care Primary Care Physician: Ric Mccrary MD [Primary Care Provider] - Please follow up with your Primary Care Physician in: Following discharge from the LTAC Please Follow Up With: Kayode Munroe MD When: Following discharge from LTAC 09/05/17 1222 <Electronically signed by Reji Maya DO> Date Reji Maya DO CC: Kayode Munroe MD; Ivania Martinez M.D.; Ric Mccrary MD Signed BEDSIDE GLUCOSE Collected: 09/05/2017 Status: F Source: [place] 11:42 AM [facility] REPOSITORY TYPE CODE TESTS RESULT OUT OF REFERENCE UNITS RANGE LAB L501.080 70-110 mg/dL High BEDSIDE GLU 163 Result Comment: MANAGEMENT OF PATIENT CARE PER NURSING PROTOCOL Performed By: #### L501.080 #### [facility] Point of Care [address] [place] [address] BEDSIDE GLUCOSE Collected: 09/05/2017 Status: F Source: [place] 9:18 AM [facility] REPOSITORY TYPE CODE TESTS RESULT OUT OF REFERENCE UNITS RANGE LAB L501.080 70-110 mg/dL High BEDSIDE GLU 127 Result Comment: MANAGEMENT OF PATIENT CARE PER NURSING PROTOCOL Performed By: #### L501.080 #### [facility] Point of Care [address] [place] [address] BEDSIDE GLUCOSE Collected: 09/05/2017 Status: F Source: [place] 6:40 AM [facility] REPOSITORY TYPE CODE TESTS RESULT OUT OF REFERENCE UNITS RANGE LAB L501.080 70-110 mg/dL High BEDSIDE GLU 111 Result Comment: MANAGEMENT OF PATIENT CARE PER NURSING PROTOCOL Performed By: #### L501.080 #### [facility] Point of Care [address] [place] [address] BEDSIDE GLUCOSE Collected: 09/04/2017 Status: F Source: [place] 10:09 PM [facility] REPOSITORY TYPE CODE TESTS RESULT OUT OF REFERENCE UNITS RANGE LAB L501.080 70-110 mg/dL High BEDSIDE GLU 171 Result Comment: Insulin Given MANAGEMENT OF PATIENT CARE PER NURSING PROTOCOL Performed By: #### L501.080 #### [facility] Point of Care [address] [place] [address] BEDSIDE GLUCOSE Collected: 09/04/2017 Status: F Source: [place] 5:49 PM [facility] REPOSITORY TYPE CODE TESTS RESULT OUT OF REFERENCE UNITS RANGE LAB L501.080 70-110 mg/dL High BEDSIDE GLU 193 Result Comment: MANAGEMENT OF PATIENT CARE PER NURSING PROTOCOL Performed By: #### L501.080 #### [facility] Point of Care [address] [place] [address] BEDSIDE GLUCOSE Collected: 09/04/2017 Status: F Source: [place] 2:01 PM [facility] REPOSITORY TYPE CODE TESTS RESULT OUT OF REFERENCE UNITS RANGE LAB L501.080 70-110 mg/dL High BEDSIDE GLU 119 Result Comment: MANAGEMENT OF PATIENT CARE PER NURSING PROTOCOL Performed By: #### L501.080 #### [facility] Point of Care [address] [place] [address] BEDSIDE GLUCOSE Collected: 09/04/2017 Status: F Source: [place] 6:30 AM [facility] REPOSITORY TYPE CODE TESTS RESULT OUT OF REFERENCE UNITS RANGE LAB L501.080 70-110 mg/dL High BEDSIDE GLU 145 Result Comment: MANAGEMENT OF PATIENT CARE PER NURSING PROTOCOL Performed By: #### L501.080 #### [facility] Point of Care [address] [place] [address] BASIC METABOLIC Collected: 09/04/2017 Status: F Source: [place] PROFILE (BMP) 5:45 AM [facility] REPOSITORY TYPE CODE TESTS RESULT OUT OF RANGE REFERENCE UNITS LAB L501.0100 74-106 mg/dL High GLU 163 Result Comment: Fasting Glucose result greater than or equal to 126 mg/dL suggests DIABETES MELLITUS per A.D.A. criteria. Please note revised GLUCOSE reference range effective 2017. LAB L501.1000 7-18 mg/dL High BUN 56 LAB L501.1100 0.55-1.02 mg/dL High CREAT,SERUM 7.15 Result Comment: The validity of the calculated GFR AND GFRAA in patients over 70 years has not been determined. Clinical correlation is essential. LAB L501.1110 >60 mL/min Low EST GFR 7 Result Comment: Non- GFR Calc LAB L501.1115 >60 mL/min Low EST GFR - AA 8 Result Comment: GFR Calc LAB L501.1255 ml/min Normal Estimated CRCL 9.50 LAB L501.1300 10-20 RATIO Low BUN/CRE 7.8 LAB L501.2200 8.5-10. mg/dL Low 1 CA 7.7 LAB L501.5300 136-145 mmol/L Normal NA 138 LAB L501.5600 3.5-5.1 mmol/L Normal K 3.6 LAB L501.5900 98-107 mmol/L Normal CL 100 LAB L501.6100 21.0-32 mmol/L Normal .0 CO2 29.0 LAB L501.6200 5-15 Normal GAP 9 Performed By: #### L500.2500 #### [facility] [place], [address] CBC W/DIFF, AUTOMATED Collected: 09/04/2017 Status: F Source: [place] 5:45 AM [facility] REPOSITORY TYPE CODE TESTS RESULT OUT OF RANGE REFERENCE UNITS LAB L100.1000 4.4-11.0 K/mm3 Normal WBC 6.2 LAB L100.1200 4.2-5.4 M/mm3 Low RBC 2.62 LAB L100.1300 12.0-15.0 g/dl Low HGB 8.3 LAB L100.1400 37-47 % Low HCT 26.0 LAB L100.1500 81-99 fL High MCV 99.2 LAB L100.1600 27.0-32.0 pg Normal MCH 31.7 LAB L100.1700 32-36 g/gl Low MCHC 31.9 LAB L100.1810 11.6-14.6 % High RDW CV 17.2 LAB L100.1820 35.1-43.9 fl High RDW SD 58.4 LAB L100.1900 150-450 K/mm3 Normal PLT 194 LAB L100.2000 6.2-12.0 fl Normal MPV 8.5 LAB L100.2100 47-70 % High NEUT% 75.8 LAB L100.2200 19-41 % Low LY% 14.3 LAB L100.2300 0-10 % Normal MONO% 6.0 LAB L100.2400 0-5 % Normal EO% 2.4 LAB L100.2500 0-1 % Normal BASO% 0.5 LAB L100.2550 0.0-0.9 % High IM GRAN % 1.000 Result Comment: IG% - Immature Granulocytes (promyelocytes, myelocytes and metamyelocytes) > 1% indicates that a LEFT SHIFT is Present. LAB L100.2620 2.0-7.7 X10 3/uL Normal Absolute Neut 4.7 LAB L100.2720 0.83-4.51 X10 3/ul Normal Absolute Lymph 0.88 Performed By: #### L100.0100 #### [facility] [address] [place], [address] BEDSIDE GLUCOSE Collected: 09/03/2017 Status: F Source: [place] 10:20 PM [facility] REPOSITORY TYPE CODE TESTS RESULT OUT OF REFERENCE UNITS RANGE LAB L501.080 70-110 mg/dL High BEDSIDE GLU 153 Result Comment: Insulin Given MANAGEMENT OF PATIENT CARE PER NURSING PROTOCOL Performed By: #### L501.080 #### [facility] Point of Care [address] [place] [address] BEDSIDE GLUCOSE Collected: 09/03/2017 Status: F Source: [place] 5:14 PM [facility] REPOSITORY TYPE CODE TESTS RESULT OUT OF REFERENCE UNITS RANGE LAB L501.080 70-110 mg/dL High BEDSIDE GLU 167 Result Comment: MANAGEMENT OF PATIENT CARE PER NURSING PROTOCOL Performed By: #### L501.080 #### [facility] Point of Care [address] [place] [address] BEDSIDE GLUCOSE Collected: 09/03/2017 Status: F Source: [place] 11:55 AM [facility] REPOSITORY TYPE CODE TESTS RESULT OUT OF REFERENCE UNITS RANGE LAB L501.080 70-110 mg/dL High BEDSIDE GLU 236 Result Comment: MANAGEMENT OF PATIENT CARE PER NURSING PROTOCOL Performed By: #### L501.080 #### [facility] Point of Care [address] [place] [address] CBC W/DIFF, AUTOMATED Collected: 09/03/2017 Status: F Source: [place] 5:10 AM [facility] REPOSITORY TYPE CODE TESTS RESULT OUT OF RANGE REFERENCE UNITS LAB L100.1000 4.4-11.0 K/mm3 Normal WBC 7.5 LAB L100.1200 4.2-5.4 M/mm3 Low RBC 2.32 LAB L100.1300 12.0-15.0 g/dl Low HGB 7.3 LAB L100.1400 37-47 % Low HCT 22.9 LAB L100.1500 81-99 fL Normal MCV 98.7 LAB L100.1600 27.0-32.0 pg Normal MCH 31.5 LAB L100.1700 32-36 g/gl Low MCHC 31.9 LAB L100.1810 11.6-14.6 % High RDW CV 18.3 LAB L100.1820 35.1-43.9 fl High RDW SD 62.2 LAB L100.1900 150-450 K/mm3 Normal PLT 202 LAB L100.2000 6.2-12.0 fl Normal MPV 8.4 LAB L100.2100 47-70 % High NEUT% 80.9 LAB L100.2200 19-41 % Low LY% 9.4 LAB L100.2300 0-10 % Normal MONO% 8.0 LAB L100.2400 0-5 % Normal EO% 0.9 LAB L100.2500 0-1 % Normal BASO% 0.1 LAB L100.2550 0.0-0.9 % Normal IM GRAN % 0.700 Result Comment: IG% - Immature Granulocytes (promyelocytes, myelocytes and metamyelocytes) > 1% indicates that a LEFT SHIFT is Present. LAB L100.2620 2.0-7.7 X10 3/uL Normal Absolute Neut 6.1 LAB L100.2720 0.83-4.51 X10 3/ul Low Absolute Lymph 0.71 Performed By: #### L100.0100 #### [facility] [address] [place], [place], [address] BASIC METABOLIC Collected: 09/03/2017 Status: F Source: [place] PROFILE (BMP) 5:10 AM [facility] REPOSITORY TYPE CODE TESTS RESULT OUT OF RANGE REFERENCE UNITS LAB L501.0100 74-106 mg/dL High GLU 153 Result Comment: Fasting Glucose result greater than or equal to 126 mg/dL suggests DIABETES MELLITUS per A.D.A. criteria. Please note revised GLUCOSE reference range effective 2017. LAB L501.1000 7-18 mg/dL High BUN 43 LAB L501.1100 0.55-1.02 mg/dL High CREAT,SERUM 5.75 Result Comment: The validity of the calculated GFR AND GFRAA in patients over 70 years has not been determined. Clinical correlation is essential. LAB L501.1110 >60 mL/min Low EST GFR 9 Result Comment: Non- GFR Calc LAB L501.1115 >60 mL/min Low EST GFR - AA 10 Result Comment: GFR Calc LAB L501.1255 ml/min Normal Estimated CRCL 11.81 LAB L501.1300 10-20 RATIO Low BUN/CRE 7.5 LAB L501.2200 8.5-10 mg/dL Low .1 CA 7.4 LAB L501.5300 136-14 mmol/L Normal 5 NA 138 LAB L501.5600 3.5-5. mmol/L Normal 1 K 4.1 LAB L501.5900 98-107 mmol/L Normal CL 100 LAB L501.6100 21.0-3 mmol/L Normal 2.0 CO2 29.0 LAB L501.6200 5-15 Normal GAP 9 Performed By: #### L500.2500, L506.0500 #### [facility] [address] [facility] [place], [address] PREALBUMIN Collected: 09/03/2017 Status: F Source: [place] 5:10 AM [facility] REPOSITORY TYPE CODE TESTS RESULT OUT OF RANGE REFERENCE UNITS LAB L506.0500 20.0-40.0 mg/dL Normal PREALBUMIN 23.1 Performed By: #### L500.2500, L506.0500 #### [facility] [address] [place], [address] BEDSIDE GLUCOSE Collected: 09/02/2017 Status: F Source: [place] 9:13 PM [facility] REPOSITORY TYPE CODE TESTS RESULT OUT OF REFERENCE UNITS RANGE LAB L501.080 70-110 mg/dL High BEDSIDE GLU 142 Result Comment: MANAGEMENT OF PATIENT CARE PER NURSING PROTOCOL Performed By: #### L501.080 #### [facility] Point of Care [address] [place] [address] CONSULTATION Observed: 09/02/2017 Status: F Source: [place] 6:39 PM [facility] REPOSITORY [facility] Medical Records Department [address] [place] [id number] Consultation 09/02/17 1837 MR#: [id number] Acct: [id number] Name: KOURTNEY REZA Rep #: [id number] : 1975 41 From: Chey Martinez MD PCP: Ric Mccrary MD Status: ADM IN Y Location: ICU ICU06-1 Consultation - Renal 09/02/17 PCP/ Referring MD: Requesting physician: Dr Roman Primary care physician: Ric Mccrary Reason for Consultation:: ESRD - History of Present Illness History of Present Illness: The patient is a 41 year old F well known to us. ESRD on HD MWF schedule recent admission with pilonidal cyst, fistula, diverting colostomy pneumonia and CHF admitted now with severe blood loss - Allergies Allergies: Allergies latex Allergy (Verified 08/12/17 02:03) Rash levofloxacin [From Levaquin] Adverse Reaction (Verified 08/12/17 02:03) PT CAN'T REMEMBER PT CAN'T REMEMBER metoclopramide HCl [From Reglan] Adverse Reaction (Verified 08/12/17 02:03) Nausea NSAIDS (Non-Steroidal Anti-Inflamma Adverse Reaction (Verified 08/12/17 02:03) kidney function oxycodone HCl [From Percocet] Adverse Reaction (Verified 08/12/17 02:03) HALLUCINATIONS - Current Medications Current Medications: Current Medications Acetaminophen (Tylenol) 650 mg PO Q6H PRN PRN PRN Reason: MILD PAIN (1-3) Last Admin: 09/02/17 14:44 Dose: 650 mg Alprazolam (Xanax) 0.5 mg PO BID PRN PRN PRN Reason: ANXIETY Calcium Acetate (Phoslo Gel Cap) 667 mg PO TIDCM [facility] Last Admin: 09/02/17 17:08 Dose: 667 mg Carvedilol (Coreg) 25 mg PO BID [facility] Last Admin: 09/02/17 14:43 Dose: 25 mg Dextrose (D50w Syringe) 0 gm IV X1 PRN; Protocol PRN Reason: Hypoglycemia Diltiazem HCl (Cardizem Cd) 240 mg PO DAILY [facility] Last Admin: 09/02/17 12:33 Dose: 240 mg Ergocalciferol (Vitamin D) 50,000 unit PO FR [facility] Glucagon () 1 mg IM .X1 PRN PRN Reason: Hypoglycemia Hydromorphone HCl (Dilaudid) 2 mg PO Q4H PRN PRN PRN Reason: MOD-SEVERE PAIN (4-10/10) Last Admin: 09/02/17 07:49 Dose: 2 mg Hydromorphone HCl (Dilaudid) 1 mg IV Q4H PRN PRN PRN Reason: SEVERE PAIN (6-05/02) Last Admin: 09/02/17 17:53 Dose: 1 mg Insulin Aspart (Novolog Flexpen (Bkc)) 8 units SC TIDCM [facility] Last Admin: 09/02/17 17:07 Dose: 8 u Insulin Aspart (Novolog Flexpen (Bkc)) 0 units SC ACHS [facility] PRN Reason: Protocol Last Admin: 09/02/17 17:08 Dose: 2 u Insulin Detemir (Levemir (Bkc)) 5 units SC QHS [facility] Lisinopril (Zestril) 20 mg PO DAILY [facility] Last Admin: 09/02/17 13:15 Dose: 20 mg Magnesium Hydroxide (Milk Of Magnesia) 30 ml PO DAILY PRN PRN PRN Reason: Constipation Metronidazole (Flagyl) 500 mg PO TID [facility] Last Admin: 09/02/17 13:15 Dose: 500 mg Ondansetron HCl (Zofran Odt) 4 mg PO Q8H PRN PRN PRN Reason: NAUSEA Last Admin: 09/02/17 17:53 Dose: 4 mg Pantoprazole Sodium (Protonix) 20 mg PO DAILY [facility] Last Admin: 09/02/17 10:22 Dose: 20 mg Promethazine HCl (Phenergan) 25 mg PO Q6H PRN PRN PRN Reason: NAUSEA Last Admin: 09/02/17 06:19 Dose: 25 mg Sodium Bicarbonate (Sodium Bicarbonate) 650 mg PO MOWEFR [facility] - Past Medical History Past Medical History (Chronic Problems): Chronic Problems CAD (coronary artery disease) (Chronic) Anemia, chronic disease (Chronic) Smoker (Chronic) Pilonidal cyst with abscess (Chronic) GABRIEL (obstructive sleep apnea) (Chronic) ESRD on dialysis (Chronic) Depression (Chronic) Anxiety (Chronic) HTN (hypertension) (Chronic) Nonischemic cardiomyopathy (Chronic) With ejection fraction 45 - 50%; with angiographically normal coronary arteries 05/2013; follows up with Dr. Underwood S/P repair of PDA (patent ductus arteriosus) (Chronic) At young age Diabetes mellitus type 1 (Chronic) Hyperlipidemia (Chronic) Obesity (Chronic) Systolic congestive heart failure (Chronic) EF 40% Tobacco abuse (Chronic) Iron deficiency anemia due to chronic blood loss (Chronic) Dysmenorrhea history, s/p hysterectomy. Obesity (BMI 30.0-34.9) (Chronic) Gastroparesis (Chronic) - Past Surgical History Surgical History: appendectomy, hysterectomy - and BSO, - - c-sections, L breast I+D for abscess, fistula placement LUE, L ankle surgery, appendectomy, PDA repair. Excision pilonidal cyst ulcer about 4 years ago. - Social History Smoking Status: Current every day smoker - Family History Maternal History Items: Cancer, COPD, Diabetes, Hypertension, Renal Disease, Stroke Paternal History Items: Diabetes Sibling History Items: Cancer, Diabetes Review of Systems Constitutional: Denies: Chills, Fever, Weight Change HEENT: Denies: Head Aches, Sinus Congestion, Sinus Drainage Cardiovascular: Denies: Chest Pain, Palpitations Respiratory: Denies: Cough, Shortness of breath at rest, Sputum production Gastrointestinal: Denies: Abdominal Pain, Nausea, Vomiting Genitourinary: Denies: Dysuria Musculoskeletal: Denies: Joint Pain, Joint Tenderness Skin: Denies: Rash, Wounds Neurological: Denies: Numbness, Tingling, Focal weakness Psychiatric: Denies: Anxiety, Depression, Homicidal Ideations, Suicidal Ideations Hematologic/ Lymphatic: Denies: Easy Bruising, Easy Bleeding Patient Problems: Active and Suspected Problems Acute blood loss anemia (Acute) - Physical Exam General: Alert, Oriented x3, Cooperative HEENT: Atraumatic, PERRLA, EOMI, Normocephalic Neck: Supple, No JVD, Negative Carotid Bruits Lungs: Clear to auscultation, Normal air movement Cardiovascular: Regular rate, No murmurs Abdomen: Bowel Sounds Present, Soft, Non Tender Extremities: No edema, Capillary Refill Less than 3 Seconds Skin: No rashes, No breakdown Musculoskeletal: No Tenderness to Palpation of Joints or Extremities Neurological: Cranial nerves II-XII grossly intact Psych/Mental Status: Normal Affect, Appropriate Vital Signs Temp Pulse Resp BP Pulse Ox 98.0 F 70 18 116/69 100 09/02/17 18:00 09/02/17 18:00 09/02/17 18:00 09/02/17 18:00 09/02/17 18:00 Oxygen Flow Rate 2 Oxygen Delivery Method Nasal Cannula Weight: 91 kg Body Mass Index (BMI) 32.3 Intake and Output for Last 24 Hours Intake Total 2176 / 2176 Output Total 250 / 250 Balance 1926 / 1926 Microbiology Past 72 Hours 09/02/17 12:00 Gram Stain - Final Wound - Sacral Laboratory Tests Past 24 Hrs WBC 10.1 RBC 2.62 L Hgb 8.4 L Hct 26.7 L MCV 101.9 H WBC RBC Hgb 7.5 L Hct 23.1 L POC Glucose POC Glucose 224 H 117 H Assessment/Plan Active and Suspected Problems Acute blood loss anemia (Acute) ESRD. HD Monday as per schedule Anemia. s.p PRBC. repeat BMP in am. will dialyze if K high 09/02/17 1839 <Electronically signed by Chey Martinez MD> Date Chey Martinez MD Cosigner Signature (if applicable): Date CC: Kayode Munroe MD; Ivania Martinez M.D.; Ric Mccrary MD Signed BEDSIDE GLUCOSE Collected: 09/02/2017 Status: F Source: [place] 4:59 PM [facility] REPOSITORY TYPE CODE TESTS RESULT OUT OF REFERENCE UNITS RANGE LAB L501.080 70-110 mg/dL High BEDSIDE GLU 224 Result Comment: MANAGEMENT OF PATIENT CARE PER NURSING PROTOCOL Performed By: #### L501.080 #### [facility] Point of Care [address] [place], [place] [address] HH, HEMOGLOBIN AND Collected: 09/02/2017 Status: F Source: [place]AN HEMATOCRIT 1:25 PM [facility] REPOSITORY TYPE CODE TESTS RESULT OUT OF RANGE REFERENCE UNITS LAB L100.1300 12.0-15.0 g/dl Low HGB 7.5 LAB L100.1400 37-47 % Low HCT 23.1 Performed By: #### L100.0600 #### [facility] [address] [place], [address] BEDSIDE GLUCOSE Collected: 09/02/2017 Status: F Source: [place] 12:30 PM [facility] REPOSITORY TYPE CODE TESTS RESULT OUT OF REFERENCE UNITS RANGE LAB L501.080 70-110 mg/dL High BEDSIDE GLU 117 Result Comment: MANAGEMENT OF PATIENT CARE PER NURSING PROTOCOL Performed By: #### L501.080 #### [facility] Point of Care [address] [place], [place] [address] Observed: 09/02/2017 Status: F Source: CI[place]AN CULTURE, WOUND 12:00 PM [facility] REPOSITORY Gram Stain Gram Stain Very Rare White Blood Cells No organisms seen 2+ Red Blood Cells Wound Culture ORGANISM 1: Vancomycin Resist. E. faecium Amount Growth 1+ ORGANISM 2: Presumptive C albicans Amount Growth 1+ Vancomycin Resist. E. faecium: REACTION Ampicillin $ >=32 R Benzylpenicillin NF >=64 R Gentamicin SYN-S S Linezolid $$$$ 2 S Tigecycline $$$$ <=0.12 S Streptomycin $ SYN-S S Vancomycin $ >=32 R (NF) indicates non-formulary drug at [facility]. Approval by Infectious Disease Specialist required before non-formulary drugs may be ordered and/or dispensed. * CLSI guidelines does not recommend testing of cephalosporins. This interpretation is deduced from Beta-lactam/penicillin results. Performed By: #### M100.1400 #### [facility] [address] [place], [place], [address] EMERGENCY DEPARTMENT Observed: 09/02/2017 Status: F Source: [place] SUMMARY 7:14 AM [facility] REPOSITORY [facility] Medical Records Department [address] [place] [address] Emergency Department Summary 09/02/17 0240 MR#: [id number] Acct: [id number] Name: KOURTNEY REZA Rep #: [id number] : 1975 41 From: Jose Luis Payne DO PCP: Ric Mccrary MD Status: ADM IN - ER Visit Summary Date of Service: 09/02/17 Chief Complaint: [] Wound blood loss History of Present Illness: The patient is a 41 F [] c/o acute blood loss from recent sacral surgical wound after bleeding dialysis and receiving heparin. Patient's family reports as soon as she got home she had a significant blood loss from the sacral wound. Family estimates 1 pint of blood. Patient is reporting pain and requesting analgesia. Patient is pale, hypotensive with systolic in the 90s and tachycardic in the 110's. Patient denies abdominal pain. Reports she recently underwent a I AND D of the sacral area and had a colostomy simultaneously approximately 1 week ago. Physical Examination: [] Afebrile, tachycardic, hypotensive with systolic in the 90's. Morbidly obese female, pallor, tachycardic with regular rhythm. Lungs are clear to auscultation. Abdomen is obese, soft, nontender. Sacral wound is open, oozing blood, with very large/wide surgical margins extending greater than 15 cm across the midline. Bleeding controlled with direct pressure dressing. Test Results: [] Initial hemoglobin measured 6.9. This appears low from the patient's baseline of around 8. We repeated this approximately 2 hours later and the patient had a hemoglobin of 5.2 which is likely more reflective of the acute blood loss reported earlier after the heparinization during hemodialysis. Potassium 2.9. Creatinine 3.41. INR 1.3. PTT 34.5. Lactic acid 3.1. Emergency Department Course and Treatment: [] The patient was given intravenous fluid bolus, Dilaudid for analgesia. Blood pressure stabilized. Wound dressings were saturated approximately 3 times and replaced. 2 units of blood were ordered and administered in the emergency department. Case was discussed with Dr. Munroe, plastic surgeon who performed the sacral procedure. Case was discussed with the hospitalist Dr. Roman. The hospitalist will admit the patient and consult plastic surgery. Family is amenable to admission. I do not feel the patient warranted protamine treatment at this time. Treatment Plan: [] Admit, blood transfusion, surgical consultation in the a.m. Disposition: [] Admit, stable. Impression: [] Acute blood loss from surgical wound Anemia History of end-stage renal disease Critical CARE time: 40 minutes This note was generated with [employer] software. It may contain incorrect words, spelling, and punctuation that were not noted in review of the chart prior to signing ED Disposition - Plan for ED Patient: Chief Complaint: Wound Referrals: Ric Mccrary MD [Primary Care Provider] - What to do if you have Problems For any increased pain, shortness of breath, bleeding, nausea or vomiting, chest pain, or any unexpected problems, contact your Primary Care Provider. Call [facility] ([phone]) or report to the closest Emergency Room. Call 911 if necessary. 09/02/17 0714 <Electronically signed by Jose Luis Payne DO> Date Jose Luis Payne DO Cosigner Signature (If Indicated): Date CC: Ric Mccrary MD CBC-COMPLETE BLOOD CNT Collected: 09/02/2017 Status: F Source: [place] NO DIFF 5:25 AM [facility] REPOSITORY TYPE CODE TESTS RESULT OUT OF RANGE REFERENCE UNITS LAB L100.1000 4.4-11.0 K/mm3 Normal WBC 10.1 LAB L100.1200 4.2-5.4 M/mm3 Low RBC 2.62 LAB L100.1300 12.0-15.0 g/dl Low HGB 8.4 LAB L100.1400 37-47 % Low HCT 26.7 LAB L100.1500 81-99 fL High MCV 101.9 LAB L100.1600 27.0-32.0 pg High MCH 32.1 LAB L100.1700 32-36 g/gl Low MCHC 31.5 LAB L100.1810 11.6-14.6 % High RDW CV 17.5 LAB L100.1820 35.1-43.9 fl High RDW SD 61.6 LAB L100.1900 150-450 K/mm3 Normal PLT 297 LAB L100.2000 6.2-12.0 fl Normal MPV 8.3 Performed By: #### L100.0500 #### [facility] [address] [place], [address] BASIC METABOLIC Collected: 09/02/2017 Status: F Source: [place] PROFILE (BMP) 5:25 AM [facility] TYPE CODE TESTS RESULT OUT OF RANGE REFERENCE UNITS LAB L501.0100 74-106 mg/dL High GLU 196 Result Comment: Fasting Glucose result greater than or equal to 126 mg/dL suggests DIABETES MELLITUS per A.D.A. criteria. Please note revised GLUCOSE reference range effective 2017. LAB L501.1000 7-18 mg/dL High BUN 26 LAB L501.1100 0.55-1.02 mg/dL High CREAT,SERUM 3.85 Result Comment: The validity of the calculated GFR AND GFRAA in patients over 70 years has not been determined. Clinical correlation is essential. LAB L501.1110 >60 mL/min Low EST GFR 14 Result Comment: Non- GFR Calc LAB L501.1115 >60 mL/min Low EST GFR - AA 16 Result Comment: GFR Calc LAB L501.1255 ml/min Normal Estimated CRCL 17.64 LAB L501.1300 10-20 RATIO Low BUN/CRE 6.8 LAB L501.2200 8.5-10 mg/dL Low .1 CA 7.5 LAB L501.5300 136-14 mmol/L Normal 5 NA 137 LAB L501.5600 3.5-5. mmol/L Low 1 K 3.1 LAB L501.5900 98-107 mmol/L Normal CL 99 LAB L501.6100 21.0-3 mmol/L Normal 2.0 CO2 26.0 LAB L501.6200 5-15 Normal GAP 12 Performed By: #### L500.2500 #### [facility] [address] [place], [address] M R STAPH AUREUS Collected: 09/02/2017 Status: F Source: [place] DNA BY PCR 4:35 AM [facility] TYPE CODE TESTS RESULT OUT OF RANGE REFERENCE UNITS LAB L8200.1100 Negative Normal MRSA Negative RESULT Performed By: #### L8200.1000 #### [facility] [address] [place], [address] HISTORY AND PHYSICAL Observed: 09/02/2017 Status: F Source: [place] EXAM 3:13 AM [facility] REPOSITORY [facility] Medical Records Department [address] [place] [address] History and Physical 09/02/17 0303 MR#: [id number] Acct: [id number] Name: KOURTNEY REZA Rep #: [id number] : 1975 41 From: Roberto Roman DO PCP: Ric Mccrary MD Status: REG ER Y Location: ED Problem List (1) Acute blood loss anemia Status: Acute (2) Pilonidal cyst with abscess Status: Chronic (3) ESRD on dialysis Status: Chronic (4) Depression Status: Chronic Qualifiers: (5) Anxiety Status: Chronic (6) HTN (hypertension) Status: Chronic Qualifiers: (7) Nonischemic cardiomyopathy Status: Chronic Comment: With ejection fraction 45 - 50%; with angiographically normal coronary arteries 05/2013; follows up with Dr. Underwood (8) S/P repair of PDA (patent ductus arteriosus) Status: Chronic Comment: At young age (9) Diabetes mellitus type 1 Status: Chronic Qualifiers: (10) Hyperlipidemia Status: Chronic Qualifiers: (11) Left ventricular diastolic dysfunction, NYHA class 2 Status: Chronic (12) Tobacco abuse Status: Chronic (13) Iron deficiency anemia due to chronic blood loss Status: Chronic Comment: Dysmenorrhea history, s/p hysterectomy. (14) Obesity (BMI 30.0-34.9) Status: Chronic (15) Gastroparesis Status: Chronic History of Present Illness Date of Admission: 09/02/17 Chief Complaint: bleeding The patient is a 41 year old F who is in her residential and then had bleeding from her recent pilonidal cyst resection. Patient's sheets were soaked and patient was able to get up and but some the staff know and had a trail of blood following behind her. Given the large amount of bleeding the patient had patient was sent to the emergency room. In the emergency room, patient's hemoglobin was noted to be 5.2 and down from 7.9 from 129. Earlier in this hospitalization in the ER patient's hemoglobin was 6.9. Patient has been typed and crossed into be transfused 2 units of packed red blood cells. They were able to get the bleeding stopped with very vigorous packing of the wound. Patient does not have a wound VAC for this wound given its proximity to the rectum. Patient's mother is present and noted that the patient has been confused and reaching out from things that are not there. [] Past Medical History Past Medical History (Chronic Problems): Chronic Problems CAD (coronary artery disease) (Chronic) Diabetes (Chronic) Anemia, chronic disease (Chronic) Smoker (Chronic) Pilonidal cyst with abscess (Chronic) GABRIEL (obstructive sleep apnea) (Chronic) ESRD on dialysis (Chronic) Depression (Chronic) Anxiety (Chronic) HTN (hypertension) (Chronic) Nonischemic cardiomyopathy (Chronic) With ejection fraction 45 - 50%; with angiographically normal coronary arteries 05/2013; follows up with Dr. Underwood S/P repair of PDA (patent ductus arteriosus) (Chronic) At young age Diabetes mellitus type 1 (Chronic) Hyperlipidemia (Chronic) Obesity (Chronic) Systolic congestive heart failure (Chronic) EF 40% Left ventricular diastolic dysfunction, NYHA class 2 (Chronic) Tobacco abuse (Chronic) Iron deficiency anemia due to chronic blood loss (Chronic) Dysmenorrhea history, s/p hysterectomy. Obesity (BMI 30.0-34.9) (Chronic) Gastroparesis (Chronic) Allergies latex Allergy (Verified 08/12/17 02:03) Rash levofloxacin [From Levaquin] Adverse Reaction (Verified 08/12/17 02:03) PT CAN'T REMEMBER PT CAN'T REMEMBER metoclopramide HCl [From Reglan] Adverse Reaction (Verified 08/12/17 02:03) Nausea NSAIDS (Non-Steroidal Anti-Inflamma Adverse Reaction (Verified 08/12/17 02:03) kidney function oxycodone HCl [From Percocet] Adverse Reaction (Verified 08/12/17 02:03) HALLUCINATIONS Home Medications: Ambulatory Orders Medication Instructions Recorded Diltiazem HCl [Tiazac] 240 mg PO DAILY 07/10/15 Aspirin [Aspirin, Baby] 81 mg PO DAILY@0800 01/26/16 Calcium Acetate [Phoslo Gel Cap] 667 mg PO TIDCM 01/26/16 Surgical History: appendectomy, hysterectomy - and BSO, - - c-sections, L breast I+D for abscess, fistula placement LUE, L ankle surgery, appendectomy, PDA repair. Excision pilonidal cyst ulcer about 4 years ago. Psychiatric History: Anxiety, Depression Smoking Status: Current every day smoker - *Family History Maternal History Items: Cancer, COPD, Diabetes, Hypertension, Renal Disease, Stroke Paternal History Items: Diabetes Sibling History Items: Cancer, Diabetes Review of Systems Constitutional: Denies: Chills, Fever, Weight Change Eyes: Reports: Blurred vision. Denies: Double vision HEENT: Denies: Head Aches, Sinus Congestion, Sinus Drainage Cardiovascular: Denies: Chest Pain, Palpitations Respiratory: Reports: Shortness of Breath. Denies: Cough Gastrointestinal: Denies: Abdominal Pain, Diarrhea, Dyspepsia, Vomiting Genitourinary: Denies: Dysuria, Frequency Musculoskeletal: Denies: Joint Pain, Joint Tenderness Skin: Reports: Wounds - Pilonidal cyst resection on her sacrum.. Denies: Dryness Neurological: Reports: Blurred vision, Confusion. Denies: Balance problems, Double vision, Change in Speech Psychiatric: Reports: Anxiety, Depression Hematologic/ Lymphatic: Reports: Easy Bleeding. Denies: Hx of blood clot VTE Information - Inpt Only VTE Present on Admission: No VTE Mechan Device Prophylaxis: SCD's Reason prophylaxis not ordered:: Medical Contraindication Patient Problems: Active and Suspected Problems Acute blood loss anemia (Acute) - Physical Exam General: Alert, Oriented x3, Cooperative, - - Listless. Confused but appropriate. HEENT: Atraumatic, Normocephalic, - - No scleral icterus Oral: Moist Mucosa, No Gingival or Mucosal Lesions/ Ulcerations Neck: No Nodes, Thyroid Normal Size and Texture Lungs: Clear to auscultation, Normal air movement, No rhonchi, No wheeze Cardiovascular: Regular rate, Regular Rhythm, Normal S1, Normal S2, No murmurs Abdomen: Bowel Sounds Present, Soft, Non Tender, Non-Distended, No Hepato-splenomegaly, Obese Extremities: No edema, No Calf Tenderness Skin: No rashes, Ulcer/ Wound, - - Sacral wound was bandaged and taped, did not remove. Musculoskeletal: No Tenderness to Palpation of Joints or Extremities, No Muscle Wasting Neurological: Neuro grossly intact, Motor Exam 5/5 strength throughout, Muscle tone normal, Sensory exam intact to light touch and pain Psych/Mental Status: - - Slightly confused but appropriate Vital Signs Temp Pulse Resp BP Pulse Ox 37.0 C 87 13 95/69 96 09/01/17 21:52 09/02/17 02:12 09/02/17 02:12 09/02/17 02:12 09/02/17 02:12 Oxygen Delivery Method Room Air Weight: 98.7 kg Body Mass Index (BMI) 35.1 Finger Stick Blood Glucose 118 Laboratory Tests Past 24 Hrs WBC 6.3 RBC 2.21 L Hgb 6.9 L Hct 22.6 L WBC RBC Hgb Hct MCV MCH MCHC WBC RBC Hgb 5.2 L* Hct MCV MCH MCHC RDW RDW Differential Plt Count MPV Immature Gran % (Auto) Assessment/Plan Active and Suspected Problems Acute blood loss anemia (Acute) 1. Acute blood loss anemia * Secondary to bleeding from the sacral ulcer. Patient to be transfused 2 units of packed red blood cells. I am also going to type and cross an additional 2 units based on what her follow-up hemoglobins or if patient does have more vigorous bleeding again. * Currently, the patient is hemodynamically stable. * Patient will be admitted to the ICU for closer monitoring until we can ensure that she is going to remain stable to go to the floor. 2. Recent pilonidal cyst resection * Dr. Munroe has been contacted by the emergency room and stated that he would see the patient in consultation. * Consult wound care as well. 3. End-stage renal disease * Consult nephrology for continuation of her dialysis. 4. Diabetes mellitus type 1 * Continue with Levemir and log. 5. DVT prophylaxis with SCDs. Chemical prophylaxis is contraindicated in light of the acute blood loss anemia. Code Visit Inpatient E AND M: 93982 Init Hosp L3 09/02/17 0313 <Electronically signed by Roberto Roman DO> Date Roberto Roman DO Cosigner Signature: Date (if applicable) CC: Roberto Roman DO; Ric Mccrary MD Signed LACTIC ACID Collected: 09/02/2017 Status: F Source: [place]ARAN 3:10 AM [facility] REPOSITORY TYPE CODE TESTS RESULT OUT OF REFERENCE UNITS RANGE LAB L503.6005 0.4-2.0 mmol/L High LACTIC ACID 3.1 Result Comment: Critical Result(s) Called at: 03:53:02 09/02/2017 by: BRONWYN VUONG to Bhavani Batista Performed By: #### L503.6005 #### [facility] [address] [place], [address] HEMOGLOBIN Collected: 09/02/2017 Status: F Source: CIARAN 2:00 AM [facility] REPOSITORY TYPE CODE TESTS RESULT OUT OF RANGE REFERENCE UNITS LAB L100.1300 12.0-15.0 g/dl Low alert HGB 5.2 Result Comment: CRITICAL VALUE VERIFIED. CALLED TO SAHIL 09/02/17 0211 Chandrika Lopez. RESULTS READ BACK BY SAME . Performed By: #### L100.1300 #### [facility] [address] [place], [address] LACTIC ACID Collected: 09/01/2017 Status: F Source: CIARAN 10:25 PM [facility] REPOSITORY Order Comment: Yes/No query for Sepsis Lactate Rule Y TYPE CODE TESTS RESULT OUT OF REFERENCE UNITS RANGE LAB L503.6005 0.4-2.0 mmol/L High LACTIC ACID 3.1 Result Comment: Critical Result(s) Called MercedAdriane SOLIS at: 22:58:48 09/01/2017 by: CRYSTAL ALTMAN Performed By: #### L503.6005 #### [facility] [address] [place], [address] CBC W/DIFF, AUTOMATED Collected: 09/01/2017 Status: F Source: CI[place]AN 9:55 PM [facility] REPOSITORY TYPE CODE TESTS RESULT OUT OF RANGE REFERENCE UNITS LAB L100.1000 4.4-11.0 K/mm3 Normal WBC 6.3 LAB L100.1200 4.2-5.4 M/mm3 Low RBC 2.21 LAB L100.1300 12.0-15.0 g/dl Low HGB 6.9 LAB L100.1400 37-47 % Low HCT 22.6 LAB L100.1500 81-99 fL High MCV 102.3 LAB L100.1600 27.0-32.0 pg Normal MCH 31.2 LAB L100.1700 32-36 g/gl Low MCHC 30.5 LAB L100.1810 11.6-14.6 % High RDW CV 16.5 LAB L100.1820 35.1-43.9 fl High RDW SD 62.1 LAB L100.1900 150-450 K/mm3 Normal PLT 203 LAB L100.2000 6.2-12.0 fl Normal MPV 8.1 LAB L100.2100 47-70 % High NEUT% 79.9 LAB L100.2200 19-41 % Low LY% 13.3 LAB L100.2300 0-10 % Normal MONO% 4.9 LAB L100.2400 0-5 % Normal EO% 1.4 LAB L100.2500 0-1 % Normal BASO% 0.2 LAB L100.2550 0.0-0.9 % Normal IM GRAN % 0.300 Result Comment: IG% - Immature Granulocytes (promyelocytes, myelocytes and metamyelocytes) > 1% indicates that a LEFT SHIFT is Present. LAB L100.2620 2.0-7.7 X10 3/uL Normal Absolute Neut 5.0 LAB L100.2720 0.83-4.51 X10 3/ul Normal Absolute Lymph 0.84 Performed By: #### L100.0100 #### [facility] [address] [place], [place], [id number] PROTHROMBIN TIME W/INR Collected: 09/01/2017 Status: F Source: [place] 9:55 PM [facility] REPOSITORY TYPE CODE TESTS RESULT OUT OF RANGE REFERENCE UNITS LAB L300.4150 11.7-14.9 SECONDS High PROTIME 15.5 LAB L300.4200 Normal INR 1.3 Performed By: #### L300.3900, L300.4310 #### [facility] [address] [place], [address] PARTIAL THROMBOPLAST Collected: 09/01/2017 Status: F Source: [place] TIME 9:55 PM [facility] REPOSITORY TYPE CODE TESTS RESULT OUT OF RANGE REFERENCE UNITS LAB L300.4310 24.1-36.2 Seconds Normal PTT 34.5 Performed By: #### L300.3900, L300.4310 #### [facility] [address] [place], [place], [id number] COMPREHENSIVE METABOLIC Collected: 09/01/2017 Status: F Source: CIARAN DARBY 9:55 PM [facility] REPOSITORY TYPE CODE TESTS RESULT OUT OF RANGE REFERENCE UNITS LAB L501.0100 74-106 mg/dL High GLU 218 Result Comment: Glucose result greater than or equal to 200 mg/dL suggests DIABETES MELLITUS per A.D.A. criteria. Please note revised GLUCOSE reference range effective 2017. LAB L501.1000 7-18 mg/dL High BUN 20 LAB L501.1100 0.55-1.02 mg/dL High CREAT,SERUM 3.41 Result Comment: The validity of the calculated GFR AND GFRAA in patients over 70 years has not been determined. Clinical correlation is essential. LAB L501.1110 >60 mL/min Low EST GFR 16 Result Comment: Non- GFR Calc LAB L501.1115 >60 mL/min Low EST GFR - AA 19 Result Comment: GFR Calc LAB L501.1255 ml/min Normal Estimated CRCL 19.91 LAB L501.1300 10-20 RATIO Low BUN/CRE 5.9 LAB L501.1500 6.4-8. g/dL Normal 2 T PROT 6.6 LAB L501.1800 3.2-5. g/dL Low 0 ALB 1.9 LAB L501.1950 2.2-4. g/dL High 2 GLOB 4.7 LAB L501.2000 0.9-2. RATIO Low 4 A/G 0.4 LAB L501.2200 8.5-10 mg/dL Low .1 CA 7.3 LAB L501.4100 15-37 U/L Normal AST 15 LAB L501.4305 45-117 U/L Normal ALK P 76 LAB L501.4405 13-56 U/L Normal ALT 13 Result Comment: Please note revised ALT reference range effective 2017. LAB L501.4600 0.20-1.00 mg/dL Normal T BILI 0.30 LAB L501.5300 136-145 mmol/L Normal NA 142 LAB L501.5600 3.5-5.1 mmol/L Low K 2.9 LAB L501.5900 98-107 mmol/L Normal CL 99 LAB L501.6100 21.0-32.0 mmol/L High CO2 34.0 LAB L501.6200 5-15 Normal GAP 9 Performed By: #### L500.4050 #### [facility] [address] [place], [place], [address] TYPE AND SCREEN Collected: 09/01/2017 Status: F Source: [place] 9:55 PM [facility] REPOSITORY Order Comment: Reason for Type AND Screen/Red Cells: HEMORRHAGE, GI BLEED TYPE CODE TESTS RESULT OUT OF RANGE REFERENCE UNITS LAB B10.0800 A Normal BLOOD TYPE GEL NEGATIVE LAB B100.4000 High Antibody POSITIVE Screen Performed By: #### B101.7450, B101.1999 #### [facility] [address] [place], [place], [address] ANTIBODY PANEL ID Collected: 09/01/2017 Status: F Source: [place] 9:55 PM [facility] REPOSITORY Order Comment: Reason for Type AND Screen/Red Cells: HEMORRHAGE, GI BLEED TYPE CODE TESTS RESULT OUT OF REFERENCE UNITS RANGE LAB B101.2000 ANTIBODY PANEL Result Comment: ANTI-C ANTI-D Performed By: #### B101.7450, B101.1999 #### [facility] [address] [place], [address] RC Collected: 09/01/2017 Status: F Source: [place] 9:55 PM [facility] REPOSITORY TYPE CODE TESTS RESULT OUT OF REFERENCE UNITS RANGE LAB U100.0000 [id number] TRANSFUSED PRODUCT: T AND S with Crossmatch, Red Cells COUNT: 2 Performed By: #### U100.0000 #### [facility] - refer to report for specific site RC Collected: 09/01/2017 Status: F Source: [place] 9:55 PM [facility] REPOSITORY TYPE CODE TESTS RESULT OUT OF REFERENCE UNITS RANGE LAB U100.0000 [id number] TRANSFUSED PRODUCT: T AND S with Crossmatch, Red Cells COUNT: 2 Performed By: #### U100.0000 #### [facility] - refer to report for specific site PROGRESS Observed: 08/30/2017 Status: COMPLETED Source: [place] 6:32 PM [facility] REPOSITORY HNO ID: [id number] Author: Petty Zhang Service: (none) Author Type: Physician Type: Progress Notes Filed: 08/30/2017 6:36 PM Note Text: FOLLOW UP VISIT - POST OP NAME: Kourtney Reaz [facility] NO.: [id number] DATE OF SERVICE: 08/29/2017 : 1975 REFERRING PHYSICIAN: Ric Mccrary MD Kourtney is a patient I am following for need for diversion due to a very complicated chronic pilonidal cyst with wide excision performed by Dr. Kayode Munroe, with dissection almost down to the sphincter complexes. I performed a laparoscopic transverse loop colostomy on August 15, 2017. The patient currently notes she has not on her usual dose of Prozac at her [facility] facility and feels like she is having worsening issues with her depression since that time. She notes discomfort at the colostomy site and has some challenges trying to dress the stoma due to the stoma bar in place, but otherwise she denies bleeding or other difficulties from the site. her appetite has been good. she denies fever, chills or abdominal pain. she does note some mild incisional discomfort. VITALS: Blood pressure 144/64, pulse 100, weight 93 kg (205 lb), last menstrual period 09/16/2013. On examination, the loop stoma is clean without signs of significant bleeding or abnormalities. The stoma bar was removed without difficulty. A digit is easily able to be inserted into both the proximal and distal limbs of the loop stoma. Assessment IMPRESSION: Status post loop colostomy PLAN: If the patient notes any problems or signs of wound infections, she should contact me immediately. I discussed with the patient that we will plan to reverse the colostomy once Dr. Munroe has completed treatment for her perineal wound. I recommend the patient be restarted on her Prozac. Given her concerns of worsening depression. Diagnoses: (L02.31) Cutaneous abscess of buttock (primary encounter diagnosis) (Z43.3) Attention to colostomy (HCC) (F33.41) Recurrent major depression in partial remission (HCC) Return to Clinic: The patient is instructed to follow- up with me as needed. Petty Zhang MD 12 LEAD ELECTROCARDIOGRAM Observed: 08/24/2017 Status: F Source: [place] 12:54 PM [facility] REPOSITORY [facility] Cardiovascular Services [address] [place] [address] 12 Lead EKG 08/15/17 0659 MR#: [id number] Acct: [id number] Name: KOURTNEY REZA Rep #: [id number] : 1975 41 From: Kaitlynn Green MD Attending Dr: Rivka Charles Status: DIS IN Ordering Dr: Rafael Grande MD Date: 08/15/17 Location: MS3 Sex: F C Admitted: 08/12/17 Test Reason : AM EKG Blood Pressure : / mmHG Vent. Rate : 060 BPM Atrial Rate : 060 BPM P-R Int : 146 ms QRS Dur : 094 ms QT Int : 504 ms P-R-T Axes : 021 060 075 degrees QTc Int : 504 ms Normal sinus rhythm Prolonged QT Abnormal ECG Confirmed by KAITLYNN GREEN MD ([id number]), web editor SHANIA SOLITARIO ([id number]) on 08/24/2017 12:54:23 PM Referred By: ARACELI Confirmed By:KAITLYNN GREEN MD 08/24/17 1254 Date Kaitlynn Green MD CC: Ric Mccrary MD Signed TRANSFER TO EXTENDED Observed: 08/21/2017 Status: F Source: [facility] 6:06 PM [facility] REPOSITORY [facility] Medical Records Department [address] [facility] [place] [address] Transfer to Extended Care MR#: [id number] Acct: [id number] Name: KOURTNEY REZA Rep #: [id number] : 1975 41 From: Gael GEORGE PCP: Ric Mccrary MD Status: ADM IN KOURTNEY REZA (Patient) (Health Ins. Claim No.) (Day of Discharge to Facility) Certification of patient admission REQUIRED AT TIME OF ADMISSION. I CERTIFY THAT POST-HOSPITAL EC SERVICES ARE REQUIRED TO BE GIVEN ON AN IN-PATIENT BASIS BECAUSE OF THE ABOVE NAMED PATIENT'S NEED FOR USP CARE ON A CONTINUING BASIS FOR THE CONDITION(S) FOR WHICH HE/SHE WAS RECEIVING IN-PATIENT HOSPITAL SERVICES PRIOR TO HIS/HER TRANSFER TO THE ECF. 08/21/17 4785 <Electronically signed by Gael GEORGE> Date Gael GEORGE ADDENDUM by ARIEL Vega on 08/21/17 at 1712 Code Visit please also follow up with Dr. Munroe in 1 week 08/21/17 1712 <Electronically signed by Gael GEORGE> Date Gael Vega cc: Emily Munoz PA-C; Emily Sands PA-C; Kayode Munroe MD; Fátima Luo MD; Mirza Molina MD; Petty Zahng MD; Bryant Addison MD; Ric Mccrary MD * Signed - Diet 08/20/17 10:16 Diet: Renal diet Is pt able to select menu?: Yes Diet Comments: if gets distended/bloated, go back to clears. - Routine Orders/Code Status O2 Liters per Minute: 2 O2 Frequency: Continuous Keep PO Greater than or Equal to (%): 90 Routine Lab Work: CBC - every other day x 3, BMP - every other day x 3 Code Status: Full Code - Wound(s) cleft Wound Type: open surgical wound s/p excision pilonidal cyst Dressing Change: Wet to Dry Dressing mid low back Wound Type: Puncture abd Wound Type: Surgical Incision Dressing Change: Dry Sterile Dressing - Therapies Physical Therapy: Eval and Treat Occupational Therapy: Eval and Treat - Problem/Diagnosis (1) Pilonidal cyst with abscess Status: Acute Current Visit: No (2) Small bowel obstruction Status: Acute Current Visit: Yes (3) Diabetes Status: Chronic Current Visit: Yes (4) CAD (coronary artery disease) Status: Chronic Current Visit: Yes (5) ESRD on dialysis Status: Chronic Current Visit: No (6) Depression Status: Chronic Current Visit: No (7) Anxiety Status: Chronic Current Visit: No (8) HTN (hypertension) Status: Chronic Current Visit: No (9) Hyperlipidemia Status: Chronic Current Visit: No (10) Systolic congestive heart failure Status: Chronic Comment: EF 40% Current Visit: No (11) Tobacco abuse Status: Chronic Current Visit: No (12) Obesity (BMI 30.0-34.9) Status: Chronic Current Visit: No (13) Gastroparesis Status: Chronic Current Visit: No - Allergies/Procedures Done in Hospital Allergies/Adverse Reactions: Allergies latex Allergy (Verified 08/12/17 02:03) Rash levofloxacin [From Levaquin] Adverse Reaction (Verified 08/12/17 02:03) PT CAN'T REMEMBER PT CAN'T REMEMBER metoclopramide HCl [From Reglan] Adverse Reaction (Verified 08/12/17 02:03) Nausea NSAIDS (Non-Steroidal Anti-Inflamma Adverse Reaction (Verified 08/12/17 02:03) kidney function oxycodone HCl [From Percocet] Adverse Reaction (Verified 08/12/17 02:03) HALLUCINATIONS - Type of Care/Length of Stay Estimated LOS: Convalescent Care Less Than 30 days Type of Care Needed: Skilled Rehab Potential: Fair Prognosis: Fair - Additional Orders/Day of Discharge Day of Discharge: 08/21/17 - Dietary and Speech Recommendations Dietitian Recommendations/Changes: Rec diet change 1800 calorie controlled, low sodium. Sugggest Edmar 1 packet BID for wound healing. Continue Nepro Carb Steady ONS w/ medpass. - Follow Up Care Primary Care Physician: Ric Mccrary MD [Primary Care Provider] - Please follow up with your Primary Care Physician in: 2 weeks Please Follow Up With: Petty Zhang MD - bring ostomy bag When: 3 days Please Follow Up With: Nawaf Valdivia MD - resume normal dialysis schedule When: 2 days 08/21/17 6548 <Electronically signed by Gael GEORGE> Date Gael GEORGE CC: Emily Munoz PA-C; Emily Sands PA-C; Kayode Munroe MD; Fátima Luo MD; Mirza Molina MD; Petty Zhang MD; Bryant Addison MD; Ric Mccrary MD Signed DISCHARGE SUMMARY Observed: 08/21/2017 Status: F Source: [place] 5:53 PM [facility] REPOSITORY [facility] Medical Records Department [address] [place] [address] Discharge Summary 08/21/17 1659 MR#: [id number] Acct: [id number] Name: KOURTNEY REZA Rep #: [id number] : 1975 41 From: Gael GEORGE PCP: Ric Mccrary MD Status: ADM IN [facility] ADDENDUM by Rivka Charles on 08/21/17 at 1753 Code Visit Discharge Diagnoses: (1) Acute Necrotizing Buttock Infection related to Pilonidal Cysts extending to Anal Sphincter w/ Wound Cx w/ GPR, E. Coli, Strep, Enterococcus (2) Abdominal pain, nausea without emesis, diarrhea x 1 w/ Proximal Bowel Inflammation, Possible Infectious Colitis w/ ? early SBO (3) Hypertension (4) Acute on AOCD, Fe deficiency anemia (5) ESRD on HD (6) Chronic systolic CHF, CM, Diastolic DysFx, CAD (7) Hyperlipidemia (8) Diabetes mellitus type II w/ Neuropathy, Gastroparesis (9) Depression and Anxiety (10) Tobacco Abuse (11) Obesity Discharge Summary: The patient is a 41 y/o F w/ PMHx: ESRD on HD, Diabetes mellitus type II w/ Neuropathy and Gastroparesis, HTN, HLD, Tobacco use, Obesity, LV Diastolic Dysfx, Systolic CHF Hx, CAD s/p 2013 catheterization w/ mild LAD disease w/ medical therapy only who presented to the [facility] ED on 08/12/17 w/ sudden onset at 1:30 am severe mid-abdominal pain radiating toward her back with associated nausea without emesis and diarrheal episode x 1 with subjective elevated temperature and chills. Following lengthy admission, patient treated for Acute Necrotizing Buttock Infection related to Pilonidal Cysts extending to Anal Sphincter w/ Wound Cx w/ GPR, E. Coli, Strep, Enterococcus, w/ OR 08/17/17 Recurrent extensive complicated pilonidal cyst ulcers with left gluteal extension and necrotizing anal sphincter muscle involvement w/ laparoscopic transverse colostomy, lysis of adhesions per Dr. Zhang. Maintained on IV Vanc, Flagyl, Cefepime w/ transition to regimen w/ HD per ID recommendation upon discharge. Wound RN following, currently not appropriate for VAC given extensive nature. Upon initial presentation, concern for Proximal Bowel Inflammation, Possible Infectious Colitis w/ ? early SBO w/ CT A/P with possible acute inflammation of the proximal bowel and early or partial SBO, hepatomegaly and splenomegaly, initially maintained on IVFs, maintained initially on IV zosyn w/ transition to treat to extensive regimen for infected pilonidal cyst, buttock region as noted, deferred NGT pending discussion with Surgery given atypical presentation, strict I AND Os w/ resolution and eventual diet restart per Surgery. During admission patient did review PRBC x 1 u following OR w/ Acute on Chronic AOCD/Fe deficiency anemia. Dr. Martinez group consulted and HD continued during admission. Patient cleared on 08/21/17 per Surgery and ID evaluation w/ set aggressive abx schedule, thus discharged to SNF in stable, improved condition with aggressive ongoing would care, follow-up with Surgery as well as Nephrology and PCP. Day of Discharge Examination: See daily progress note. Inpatient E AND M: [id number] Disch Hosp 08/21/17 8344 <Electronically signed by Rivka Charles > Date Rivka Charles cc: ARIEL Vega; Rivka Charles; Ric Mccrary MD * Signed Discharge Date and Diagnosis - Problem List Patient Problems: Active and Suspected Problems Small bowel obstruction (Acute) ? Early small bowel obstruction (Acute) Possible Infectious Colitis (Acute) Abdominal pain (Acute) Inflammation of small intestine (Acute) Date of Admission: 08/12/17 Date of Discharge: 08/21/17 - Primary Discharge Diagnosis Active and Suspected Problems Small bowel obstruction (Acute) Pilonidal cyst with abscess 2/2 Possible Infectious Colitis (Acute) ESRD T2DM CAD Chronic CHF Obesity Tobacco abuse anx/dep - Secondary Discharge Diagnosis Chronic Problems Diabetes (Chronic) CAD (coronary artery disease) (Chronic) Anemia, chronic disease (Chronic) Smoker (Chronic) GABRIEL (obstructive sleep apnea) (Chronic) ESRD on dialysis (Chronic) Depression (Chronic) Anxiety (Chronic) HTN (hypertension) (Chronic) Nonischemic cardiomyopathy (Chronic) With ejection fraction 45 - 50%; with angiographically normal coronary arteries 05/2013; follows up with Dr. Underwood S/P repair of PDA (patent ductus arteriosus) (Chronic) At young age Diabetes mellitus type 1 (Chronic) Hyperlipidemia (Chronic) Obesity (Chronic) Systolic congestive heart failure (Chronic) EF 40% Left ventricular diastolic dysfunction, NYHA class 2 (Chronic) Tobacco abuse (Chronic) Iron deficiency anemia due to chronic blood loss (Chronic) Dysmenorrhea history, s/p hysterectomy. Obesity (BMI 30.0-34.9) (Chronic) Gastroparesis (Chronic) Hospital Course and Treatment Imaging Results: CT/Abdomen/Pelvis without Cont IMPRESSION: 1. CT findings suggest possible acute inflammation of the proximal small bowel and early or partial small bowel obstruction. Ileus is thought less likely. 2. Hepatomegaly and splenomegaly. RAD/Abdomen Single View IMPRESSION: No evidence of small bowel obstruction. RAD/Abdomen Single View IMPRESSION: Enteric contrast is still visible in the colon but there has been interim decrease in amount of enteric contrast since the previous study. Consultations Shaneka/Leatha/Valerio - Surgery [facility] - [place] Skip/Pura - Renal Operations: - - diverting colostomy, pilonidal cyst debridement Procedures: None Summary of Care Provided: Physical exam on day of discharge: See daily progress note Hospital course: The patient is a 41 year old F with ESRD, CAD, CHF, T2DM, obesity who presented to the ER with abdominal pain, vomiting, diarrhea, fever and chills. CT showed possible infectious colitis and SBO, she was admitted and started on zosyn and surgery consuled. She was later found to have a large pilonidal cyst. Plastics was consulted and she underwent an extensive debridement nearly involving the anal sphincter too large for wound vac. Given the extensive nature of the cyst a diverting colostomy was performed. Infectious disease was consulted. She was placed on flagyl, cefipime, and vancomysin as her wound was growing GPR, e coli, and enterococcus. She continued dialysis per [place] [facility]. Wound care was consulted. Her diet was successfully advanced. ID recommended to continue vancomycin and ceftazidime with dialysis and PO flagyl until 08/30/2017. It was recommended that she go to assisted due to the extensive nature of her wounds and needs to continue wound care. Renal arranged for vanc and ceftazidime to be continued with dialysis until the end date. I wrote for the necessary flagyl. She was discharged to assisted in stable condition. She will need to follow up with Dr. Zhang in 3 days, renal to continue dialysis and IV abx, Dr. Munroe in 1 week, and her PCP as well. This patient was seen by Gael Vega PA-C under the supervision of Doctor Araceli. [] Discharge Diet: Low fat/ Low Cholesterol, 1800 Calorie Control Diet, 4000 mg Sodium Diet, Renal Diet Discharge Activity: Return to Normal Activity Home Medications: Medications to take at Discharge Diltiazem HCl [Tiazac] 240 mg PO DAILY 07/10/15 Aspirin [Aspirin, Baby] 81 mg PO DAILY@0800 01/26/16 Calcium Acetate [Phoslo Gel Cap] 667 mg PO TIDCM 01/26/16 Ergocalciferol [Vitamin D] 50,000 unit PO FR 01/26/16 Insulin Aspart [Novolog Flexpen] 8 units SC TIDCM 01/26/16 Insulin Glargine,Hum.rec.anlog [Lantus] 5 unit SQ QHS 01/09/17 ProMETHAzine [Phenergan] 25 mg PO Q6H PRN PRN #10 tablet 03/06/17 Lisinopril 20 mg PO DAILY 03/29/17 Omeprazole Magnesium [Prilosec Otc] 20 mg PO DAILY 03/29/17 Sodium Bicarbonate 650 mg PO MOWEFR 03/29/17 Acetaminophen [Tylenol Tablet] 650 mg PO Q6H PRN PRN tablet 03/31/17 Carvedilol [Coreg (Beta Lewis)] 25 mg PO BID 06/17/17 Ondansetron [Zofran Odt] 4 mg PO Q8H PRN PRN #10 tablet 08/06/17 ALPRAZolam [Xanax] 0.5 mg PO PRN PRN 08/12/17 HydromorphONE [Dilaudid] 2 mg PO Q4H PRN PRN #12 tab 08/21/17 Metronidazole [Flagyl] 500 mg PO TID #27 tablet 08/21/17 Following Prescrptions Were Given to Patient: HydromorphONE [Dilaudid] 2 mg PO Q4H PRN PRN #12 tab PRN Reason: Mod-Severe Pain (-05/02) Primary Care Physician: Ric Mccrary MD [Primary Care Provider] - Please follow up with your Primary Care Physician in: 2 weeks Please Follow Up With: Petty Zhang MD - bring ostomy bag When: 3 days Please Follow Up With: Nawaf Valdivia MD - resume normal dialysis schedule When: 2 days Patient Instructions: Colostomy: Answers to Common Questions, Colostomy: Living an Active Life, Colostomy: Adjusting to Your Body, Colostomy: Changing Your Pouch, Ostomy Care: Emptying Your Pouch, Types of Colon Resections, What Is a Colostomy?, After Bowel Surgery: Recovering in the Hospital and at Home, Discharge Instructions for Colostomy, Discharge Instructions: Changing Your Ostomy Pouch, Discharge Instructions: Irrigating Your Colostomy, Colostomy: Caring for Your Stoma, Colostomy: Nutritional Management, Colostomy: Selecting Your Pouch Disposition: Nursing Home facility Minutes spent on discharge:: 40 Patient Condition:: Stable Meaningful Use Info Meaningful Use Diagnoses (Choose all that apply): None applicable 08/21/17 1714 <Electronically signed by Gael GEORGE> Date Gael GEORGE 08/21/17 1748<Electronically signed by Rivka Charles > Cosigner Signature (if applicable): Date Rivka Charles CC: ARIEL Vega; Rivka Charles; Ric Mccrary MD Signed BEDSIDE GLUCOSE Collected: 08/21/2017 Status: F Source: [place] 4:47 PM [facility] REPOSITORY TYPE CODE TESTS RESULT OUT OF REFERENCE UNITS RANGE LAB L501.080 70-110 mg/dL High BEDSIDE GLU 227 Result Comment: MANAGEMENT OF PATIENT CARE PER NURSING PROTOCOL Performed By: #### L501.080 #### [facility] Point of Care [address] [place], [place] [address] [address] BEDSIDE GLUCOSE Collected: 08/21/2017 Status: F Source: [place] 6:42 AM [facility] REPOSITORY TYPE CODE TESTS RESULT OUT OF REFERENCE UNITS RANGE LAB L501.080 70-110 mg/dL High BEDSIDE GLU 127 Result Comment: MANAGEMENT OF PATIENT CARE PER NURSING PROTOCOL Performed By: #### L501.080 #### [facility] Point [place] [address] CBC W/DIFF, AUTOMATED Collected: 08/21/2017 Status: F Source: [place] 5:44 AM [facility] REPOSITORY TYPE CODE TESTS RESULT OUT OF RANGE REFERENCE UNITS LAB L100.1000 4.4-11.0 K/mm3 Normal WBC 7.5 LAB L100.1200 4.2-5.4 M/mm3 Low RBC 2.57 LAB L100.1300 12.0-15.0 g/dl Low HGB 7.9 LAB L100.1400 37-47 % Low HCT 25.0 LAB L100.1500 81-99 fL Normal MCV 97.3 LAB L100.1600 27.0-32.0 pg Normal MCH 30.7 LAB L100.1700 32-36 g/gl Low MCHC 31.6 LAB L100.1810 11.6-14.6 % High RDW CV 15.5 LAB L100.1820 35.1-43.9 fl High RDW SD 51.7 LAB L100.1900 150-450 K/mm3 Normal PLT 165 LAB L100.2000 6.2-12.0 fl Normal MPV 8.6 LAB L100.2100 47-70 % High NEUT% 78.4 LAB L100.2200 19-41 % Low LY% 9.6 LAB L100.2300 0-10 % Normal MONO% 8.2 LAB L100.2400 0-5 % Normal EO% 2.8 LAB L100.2500 0-1 % Normal BASO% 0.3 LAB L100.2550 0.0-0.9 % Normal IM GRAN % 0.700 Result Comment: IG% - Immature Granulocytes (promyelocytes, myelocytes and metamyelocytes) > 1% indicates that a LEFT SHIFT is Present. LAB L100.2620 2.0-7.7 X10 3/uL Normal Absolute Neut 5.9 LAB L100.2720 0.83-4.51 X10 3/ul Low Absolute Lymph 0.72 Performed By: #### L100.0100 #### [facility] [address] [place], [place], [address] VANCOMYCIN, RANDOM Collected: 08/21/2017 Status: F Source: [place] LEVEL 5:44 AM [facility] REPOSITORY TYPE CODE TESTS RESULT OUT OF REFERENCE UNITS RANGE LAB L501.8850 0.0-15.0 ug/mL High VANCO, RANDOM 16.2 Result Comment: VANCOMYCIN STANDARD DRUG THERAPY: CRITICAL VALUE IS > 15.0 mg/L VANCOMYCIN HIGH INTENSITY THERAPY: CRITICAL VALUE IS > 20.0 mg/L PLEASE CONTACT PHARMACY SERVICES (#[id number]) FOR INTERPRETATION OF RESULTS. THIS RESULT DOES NOT REPRESENT A PEAK OR TROUGH LEVEL FOR THIS DRUG. Performed By: #### L501.8850 #### [facility] [address] [place], [place], [address] BASIC METABOLIC Collected: 08/21/2017 Status: F Source: [place] PROFILE (BMP) 5:44 AM [facility] REPOSITORY TYPE CODE TESTS RESULT OUT OF RANGE REFERENCE UNITS LAB L501.0100 70-110 mg/dL High GLU 143 Result Comment: Fasting Glucose result greater than or equal to 126 mg/dL suggests DIABETES MELLITUS per A.D.A. criteria. LAB L501.1000 7-18 mg/dL High BUN 41 LAB L501.1100 0.55-1.02 mg/dL High alert CREAT,SERUM 9.23 Result Comment: Critical Result(s) Called at: 06:49:38 08/21/2017 by: Rachid Morrell RN ([id number]). The validity of the calculated GFR AND GFRAA in patients over 70 years has not been determined. Clinical correlation is essential. LAB L501.1110 >60 mL/min Low EST GFR 5 Result Comment: Non- GFR Calc LAB L501.1115 >60 mL/min Low EST GFR - AA 6 Result Comment: GFR Calc LAB L501.1255 ml/min Normal Estimated CRCL 7.36 LAB L501.1300 10-20 RATIO Low BUN/CRE 4.4 LAB L501.2200 8.5-10. mg/dL Low 1 CA 7.7 LAB L501.5300 136-145 mmol/L Low NA 133 LAB L501.5600 3.5-5.1 mmol/L Normal K 3.5 LAB L501.5900 98-107 mmol/L Low CL 94 LAB L501.6100 21.0-32 mmol/L Normal .0 CO2 27.0 LAB L501.6200 5-15 Normal GAP 12 Performed By: #### L500.2500 #### [facility] [address] [place], [address] BEDSIDE GLUCOSE Collected: 08/20/2017 Status: F Source: [place] 10:09 PM [facility] REPOSITORY TYPE CODE TESTS RESULT OUT OF REFERENCE UNITS RANGE LAB L501.080 70-110 mg/dL High BEDSIDE GLU 226 Result Comment: MANAGEMENT OF PATIENT CARE PER NURSING PROTOCOL Performed By: #### L501.080 #### [facility] Point of Care [address] [place] [address] BEDSIDE GLUCOSE Collected: 08/20/2017 Status: F Source: [place] 4:01 PM [facility] REPOSITORY TYPE CODE TESTS RESULT OUT OF REFERENCE UNITS RANGE LAB L501.080 70-110 mg/dL High BEDSIDE GLU 205 Result Comment: MANAGEMENT OF PATIENT CARE PER NURSING PROTOCOL Performed By: #### L501.080 #### [facility] Point of Care [address] [place] [address] BEDSIDE GLUCOSE Collected: 08/20/2017 Status: F Source: [place] 11:32 AM [facility] REPOSITORY TYPE CODE TESTS RESULT OUT OF REFERENCE UNITS RANGE LAB L501.080 70-110 mg/dL High BEDSIDE GLU 186 Result Comment: MANAGEMENT OF PATIENT CARE PER NURSING PROTOCOL Performed By: #### L501.080 #### [facility] Point of Care [address] [place] [address] TYPE AND SCREEN Collected: 08/20/2017 Status: F Source: CIARAN 7:07 AM [facility] REPOSITORY Order Comment: CMV NEG? N Number of units to transfuse: 1 Reason for Ordering Blood: Acute ATTEMPTED TO CALL MS3 BLOOD READY AT 1100. NO ANSWER LET PHONE RING FOR A LONG TIME. VSICK Are the blood/blood products to be transfused? Y Is the patient having/had surgery? N Give When? When Ready Irradiated? N Leukodepleted? Y TYPE CODE TESTS RESULT OUT OF RANGE REFERENCE UNITS LAB B10.0800 A Normal BLOOD TYPE GEL NEGATIVE LAB B100.4000 High Antibody POSITIVE Screen Performed By: #### B101.7450, B101.1999 #### [facility] [address] [place], [address] ANTIBODY PANEL ID Collected: 08/20/2017 Status: F Source: ONEIDA 7:07 AM [facility] REPOSITORY Order Comment: CMV NEG? N Number of units to transfuse: 1 Reason for Ordering Blood: Acute ATTEMPTED TO CALL MS3 BLOOD READY AT 1100. NO ANSWER LET PHONE RING FOR A LONG TIME. VSICK Are the blood/blood products to be transfused? Y Is the patient having/had surgery? N Give When? When Ready Irradiated? N Leukodepleted? Y TYPE CODE TESTS RESULT OUT OF REFERENCE UNITS RANGE LAB B101.2000 ANTIBODY PANEL Result Comment: ANTI-C ANTI-D Performed By: #### B101.7450, B101.1999 #### [facility] [address] [facility] [facility] [place], [place], [address] RC Collected: 08/20/2017 Status: F Source: ONEIDA 7:07 AM [facility] REPOSITORY TYPE CODE TESTS RESULT OUT OF REFERENCE UNITS RANGE LAB U100.0000 [id number] TRANSFUSED PRODUCT: T AND S with Crossmatch, Red Cells COUNT: 1 Performed By: #### U100.0000 #### Non-[facility] - refer to report for specific site BEDSIDE GLUCOSE Collected: 08/20/2017 Status: F Source: ONEIDA 6:17 AM [facility] REPOSITORY TYPE CODE TESTS RESULT OUT OF REFERENCE UNITS RANGE LAB L501.080 70-110 mg/dL High BEDSIDE GLU 160 Result Comment: MANAGEMENT OF PATIENT CARE PER NURSING PROTOCOL Performed By: #### L501.080 #### [facility] Point of Care [address] [place], [place] [address] CBC W/DIFF, AUTOMATED Collected: 08/20/2017 Status: F Source: CIARAN 5:50 AM [facility] REPOSITORY TYPE CODE TESTS RESULT OUT OF RANGE REFERENCE UNITS LAB L100.1000 4.4-11.0 K/mm3 Normal WBC 7.2 LAB L100.1200 4.2-5.4 M/mm3 Low RBC 2.25 LAB L100.1300 12.0-15.0 g/dl Low HGB 7.1 LAB L100.1400 37-47 % Low HCT 21.7 LAB L100.1500 81-99 fL Normal MCV 96.4 LAB L100.1600 27.0-32.0 pg Normal MCH 31.6 LAB L100.1700 32-36 g/gl Normal MCHC 32.7 LAB L100.1810 11.6-14.6 % High RDW CV 16.0 LAB L100.1820 35.1-43.9 fl High RDW SD 56.2 LAB L100.1900 150-450 K/mm3 Low PLT 120 LAB L100.2000 6.2-12.0 fl Normal MPV 8.7 LAB L100.2100 47-70 % High NEUT% 81.2 LAB L100.2200 19-41 % Low LY% 9.6 LAB L100.2300 0-10 % Normal MONO% 6.7 LAB L100.2400 0-5 % Normal EO% 1.8 LAB L100.2500 0-1 % Normal BASO% 0.1 LAB L100.2550 0.0-0.9 % Normal IM GRAN % 0.600 Result Comment: IG% - Immature Granulocytes (promyelocytes, myelocytes and metamyelocytes) > 1% indicates that a LEFT SHIFT is Present. LAB L100.2620 2.0-7.7 X10 3/uL Normal Absolute Neut 5.9 LAB L100.2720 0.83-4.51 X10 3/ul Low Absolute Lymph 0.69 Performed By: #### L100.0100 #### [facility] [address] [place], [place], [address] BASIC METABOLIC Collected: 08/20/2017 Status: F Source: CIARAN PROFILE (BMP) 5:50 AM [facility] REPOSITORY TYPE CODE TESTS RESULT OUT OF RANGE REFERENCE UNITS LAB L501.0100 70-110 mg/dL High GLU 153 Result Comment: Fasting Glucose result greater than or equal to 126 mg/dL suggests DIABETES MELLITUS per A.D.A. criteria. LAB L501.1000 7-18 mg/dL High BUN 33 LAB L501.1100 0.55-1.02 mg/dL High alert CREAT,SERUM 7.48 Result Comment: Critical Result(s) Called at: 06:47:32 08/20/2017 by: Chantelle Salazar to Juliet The validity of the calculated GFR AND GFRAA in patients over 70 years has not been determined. Clinical correlation is essential. LAB L501.1110 >60 mL/min Low EST GFR 6 Result Comment: Non- GFR Calc LAB L501.1115 >60 mL/min Low EST GFR - AA 8 Result Comment: GFR Calc LAB L501.1255 ml/min Normal Estimated CRCL 9.08 LAB L501.1300 10-20 RATIO Low BUN/CRE 4.4 LAB L501.2200 8.5-10. mg/dL Low 1 CA 8.1 LAB L501.5300 136-145 mmol/L Low NA 131 LAB L501.5600 3.5-5.1 mmol/L Normal K 3.5 LAB L501.5900 98-107 mmol/L Low CL 92 LAB L501.6100 21.0-32 mmol/L Normal .0 CO2 29.0 LAB L501.6200 5-15 Normal GAP 10 Performed By: #### L500.2500 #### [facility] [address] [place] [address], [id number] BEDSIDE GLUCOSE Collected: 08/19/2017 Status: F Source: ONEIDA 9:49 PM [facility] REPOSITORY TYPE CODE TESTS RESULT OUT OF REFERENCE UNITS RANGE LAB L501.080 70-110 mg/dL High BEDSIDE GLU 193 Result Comment: MANAGEMENT OF PATIENT CARE PER NURSING PROTOCOL Performed By: #### L501.080 #### [facility] Point of Care [address] [place], [place] [address] BEDSIDE GLUCOSE Collected: 08/19/2017 Status: F Source: ONEIDA 6:09 PM [facility] REPOSITORY TYPE CODE TESTS RESULT OUT OF REFERENCE UNITS RANGE LAB L501.080 70-110 mg/dL High BEDSIDE GLU 167 Result Comment: MANAGEMENT OF PATIENT CARE PER NURSING PROTOCOL Performed By: #### L501.080 #### [facility] Point of Care [address] [place] [address] BEDSIDE GLUCOSE Collected: 08/16/2017 Status: F Source: CIARAN 7:27 AM [facility] REPOSITORY TYPE CODE TESTS RESULT OUT OF REFERENCE UNITS RANGE LAB L501.080 70-110 mg/dL High BEDSIDE GLU 159 Result Comment: MANAGEMENT OF PATIENT CARE PER NURSING PROTOCOL Performed By: #### L501.080 #### [facility] Point of Care [address] [place], [place] [id number] CBC-COMPLETE BLOOD CNT Collected: 08/16/2017 Status: F Source: CIARAN NO DIFF 7:26 AM [facility] REPOSITORY TYPE CODE TESTS RESULT OUT OF RANGE REFERENCE UNITS LAB L100.1000 4.4-11.0 K/mm3 Normal WBC 4.7 LAB L100.1200 4.2-5.4 M/mm3 Low RBC 2.72 LAB L100.1300 12.0-15.0 g/dl Low HGB 8.4 LAB L100.1400 37-47 % Low HCT 26.5 LAB L100.1500 81-99 fL Normal MCV 97.4 LAB L100.1600 27.0-32.0 pg Normal MCH 30.9 LAB L100.1700 32-36 g/gl Low MCHC 31.7 LAB L100.1810 11.6-14.6 % High RDW CV 16.9 LAB L100.1820 35.1-43.9 fl High RDW SD 60.2 LAB L100.1900 150-450 K/mm3 Low PLT 99 LAB L100.2000 6.2-12.0 fl Normal MPV 9.1 Performed By: #### L100.0500, L101.9900 #### [facility] [address] [place], [address] ERYTHROCYTE SED RATE Collected: 08/16/2017 Status: F Source: CIARAN 7:26 AM [facility] REPOSITORY TYPE CODE TESTS RESULT OUT OF RANGE REFERENCE UNITS LAB L102.0000 0-20 mm/hr Normal SED RATE 3 Performed By: #### L100.0500, L101.9900 #### [facility] [address] [place], [address] VANCOMYCIN, RANDOM Collected: 08/16/2017 Status: F Source: CIARAN LEVEL 7:26 AM [facility] REPOSITORY TYPE CODE TESTS RESULT OUT OF REFERENCE UNITS RANGE LAB L501.8850 0.0-15.0 ug/mL High VANCO, RANDOM 24.1 Result Comment: VANCOMYCIN STANDARD DRUG THERAPY: CRITICAL VALUE IS > 15.0 mg/L VANCOMYCIN HIGH INTENSITY THERAPY: CRITICAL VALUE IS > 20.0 mg/L PLEASE CONTACT PHARMACY SERVICES (#[id number]) FOR INTERPRETATION OF RESULTS. THIS RESULT DOES NOT REPRESENT A PEAK OR TROUGH LEVEL FOR THIS DRUG. Performed By: #### L501.8850 #### [facility] [address] [place], [address] BASIC METABOLIC Collected: 08/16/2017 Status: F Source: CIARAN PROFILE (BMP) 7:26 AM [facility] REPOSITORY TYPE CODE TESTS RESULT OUT OF RANGE REFERENCE UNITS LAB L501.0100 70-110 mg/dL High GLU 154 Result Comment: Fasting Glucose result greater than or equal to 126 mg/dL suggests DIABETES MELLITUS per A.D.A. criteria. LAB L501.1000 7-18 mg/dL High BUN 33 LAB L501.1100 0.55-1.02 mg/dL High CREAT,SERUM 5.91 Result Comment: The validity of the calculated GFR AND GFRAA in patients over 70 years has not been determined. Clinical correlation is essential. LAB L501.1110 >60 mL/min Low EST GFR 8 Result Comment: Non- GFR Calc LAB L501.1115 >60 mL/min Low EST GFR - AA 10 Result Comment: GFR Calc LAB L501.1255 ml/min Normal Estimated CRCL 11.49 LAB L501.1300 10-20 RATIO Low BUN/CRE 5.6 LAB L501.2200 8.5-10 mg/dL Low .1 CA 7.5 LAB L501.5300 136-14 mmol/L Normal 5 NA 138 LAB L501.5600 3.5-5. mmol/L Normal 1 K 4.8 LAB L501.5900 98-107 mmol/L Normal CL 103 LAB L501.6100 21.0-3 mmol/L Normal 2.0 CO2 23.0 LAB L501.6200 5-15 Normal GAP 12 Performed By: #### L500.2500, L501.6710 #### [facility] [address] [place], [address] CRP Collected: 08/16/2017 Status: F Source: ONEIDA 7:26 AM [facility] REPOSITORY TYPE CODE TESTS RESULT OUT OF RANGE REFERENCE UNITS LAB L501.6710 0.0-3.0 mg/L High 46.20 C-REACTIVE PROT Result Comment: C-Reactive Protein (CRP) provides useful information for the diagnosis, therapy and monitoring of inflammatory processes and associated diseases. For the evaluation of Relative Risk for Cardiovascular Disease, a High Sensitivity CRP (HSCRP) should be ordered. Performed By: #### L500.2500, L501.6710 #### [facility] [address] [place], [address] BEDSIDE GLUCOSE Collected: 08/15/2017 Status: F Source: ONEIDA 9:41 PM [facility] REPOSITORY TYPE CODE TESTS RESULT OUT OF REFERENCE UNITS RANGE LAB L501.080 70-110 mg/dL High BEDSIDE GLU 195 Result Comment: MANAGEMENT OF PATIENT CARE PER NURSING PROTOCOL Performed By: #### L501.080 #### [facility] Point of Care [address] [place] [address] CONSULTATION Observed: 08/15/2017 Status: F Source: ONE[place] 8:38 PM [facility] REPOSITORY [facility] Medical Records Department [address] [place] [address] Consultation 08/14/17 2342 MR#: [id number] Acct: [id number] Name: KOURTNEY REZA Rep #: [id number] : 1975 41 From: Kayode Munroe MD PCP: Ric Mccrary MD Status: ADM IN [id number] Consult Date of Consultation: 08/14/17 Reason for Consultation: Recurrent complicated extensive pilonidal cyst ulcers. REFERRING PHYSICIAN: Dr. Zhang. PROJECT PRODUCT MANAGER: Dr. Munroe. History of Present Illness: The patient is a 41 year old F who was recently admitted a few days ago for increasing abdominal pain and swelling. It was thought she had an early or partial bowel obstruction which has resolved. Patient has been having bowel movements and has less abdominal pain and distention. While her obstruction was being treated, it was noted the patient has recurrent extensive complicated pilonidal cyst ulcers that were excised in the past about 4 years ago. She states there has been increasing drainage and discomfort in this area. She is currently on Zosyn. A CT Abdomen and Pelvis was obtained at admission which showed an early or partial bowel obstruction. No deep abscesses noted. I was asked to evaluate this patient for surgical options for treatment. Past Medical History Past Medical History (Chronic Problems): Chronic Problems Anemia, chronic disease (Chronic) Smoker (Chronic) GABRIEL (obstructive sleep apnea) (Chronic) ESRD on dialysis (Chronic) Depression (Chronic) Anxiety (Chronic) HTN (hypertension) (Chronic) Nonischemic cardiomyopathy (Chronic) With ejection fraction 45 - 50%; with angiographically normal coronary arteries 05/2013; follows up with Dr. Underwood S/P repair of PDA (patent ductus arteriosus) (Chronic) At young age Diabetes mellitus type 1 (Chronic) Hyperlipidemia (Chronic) Obesity (Chronic) Systolic congestive heart failure (Chronic) EF 40% Left ventricular diastolic dysfunction, NYHA class 2 (Chronic) Tobacco abuse (Chronic) Iron deficiency anemia due to chronic blood loss (Chronic) Dysmenorrhea history, s/p hysterectomy. Obesity (BMI 30.0-34.9) (Chronic) Gastroparesis (Chronic) Allergies latex Allergy (Verified 08/12/17 02:03) Rash levofloxacin [From Levaquin] Adverse Reaction (Verified 08/12/17 02:03) PT CAN'T REMEMBER PT CAN'T REMEMBER metoclopramide HCl [From Reglan] Adverse Reaction (Verified 08/12/17 02:03) Nausea NSAIDS (Non-Steroidal Anti-Inflamma Adverse Reaction (Verified 08/12/17 02:03) kidney function oxycodone HCl [From Percocet] Adverse Reaction (Verified 08/12/17 02:03) HALLUCINATIONS Current Medications Acetaminophen (Tylenol) 650 mg PO Q6H PRN Alprazolam (Xanax) 0.5 mg PO TID PRN Aspirin (Aspirin, Baby) 81 mg PO DAILY@0800 [facility] Calcium Acetate (Phoslo Gel Cap) 667 mg PO TIDCM [facility] Carvedilol (Coreg) 25 mg PO BID [facility] Diltiazem HCl (Cardizem Cd) 240 mg PO DAILY [facility] Glucagon () 1 mg IM .X1 PRN Heparin Sodium (Porcine) (Heparin Na) 5,000 unit SC BID [facility] Hydralazine HCl (Apresoline) 10 mg IV Q4H PRN Piperacillin Sod/Tazobactam Sod (Zosyn) 3.375 gm in 50 mls @ 12.5 mls/hr IV Q12 [facility] Famotidine 20 mg/ Sodium (Chloride) 10 mls @ 300 mls/hr IV DAILY [facility] Insulin Aspart (Novolog Flexpen (Bkc)) 0 units SC ACHS [facility] Insulin Detemir (Levemir (Bkc)) 5 units SC QHS [facility] Lisinopril (Zestril) 20 mg PO DAILY [facility] Lorazepam (Ativan) 0.5 mg IV Q6H PRN Magnesium Hydroxide (Milk Of Magnesia) 30 ml PO DAILY PRN Metoprolol Tartrate (Lopressor (Beta Lewis)) 5 mg IV Q6H PRN Morphine Sulfate (Morphine) 2 - 4 mg IV Q4H PRN Nicotine (Nicoderm Cq (Pbkc)) 7 mg TRANSDERM. DAILY [facility] Nutritional Formula (Nepro Carb Steady) 120 ml PO 4X/DAY [facility] Nutritional Formula (Lactose Free) (Ensure Enlive) 120 ml PO 4X/DAY [facility] Ondansetron HCl (Zofran) 4 mg IV Q8H PRN Promethazine HCl (Phenergan (Ll)) 12.5 mg IV Q6H PRN Sodium Bicarbonate (Sodium Bicarbonate) 650 mg PO MOWEFR [facility] PAST MEDICAL HISTORY ESRD on dialysis. Diabetes mellitus. Hypertension. Hyperlipidemia. Smoker. Obesity. CHF. CAD. Cardiomyopathy. GABRIEL. Anemia of chronic disease. Depression. Anxiety. Recurrent extensive complicated pilonidal cyst ulcers. Home Medications: Ambulatory Orders Medication Instructions Recorded Diltiazem HCl [Tiazac] 240 mg PO DAILY 07/10/15 Aspirin [Aspirin, Baby] 81 mg PO DAILY@0800 01/26/16 Surgical History: appendectomy, hysterectomy - and BSO, - - c-sections, L breast I+D for abscess, fistula placement LUE, L ankle surgery, appendectomy, PDA repair. Excision pilonidal cyst ulcer about 4 years ago. Psychiatric History: Anxiety, Depression Lives: Spouse/ Significant Other Smoking Status: Current every day smoker Tobacco Use: Cigarettes Alcohol: None Drugs: None - *Family History Maternal History Items: Cancer, COPD, Diabetes, Hypertension, Renal Disease, Stroke Paternal History Items: Diabetes Sibling History Items: Cancer, Diabetes Review of Systems Comment: Constitutional: Reports: Chills, Fever, Weakness, Fatigue. Denies: Weight Change. HEENT: Denies: Head Aches, Sinus Congestion, Sinus Drainage. Cardiovascular: Denies: Chest Pain, Palpitations. Respiratory: Denies: Cough, Shortness of breath at rest, Sputum production. Gastrointestinal: Reports: Abdominal Pain, Diarrhea, Nausea. Denies: Vomiting. Genitourinary: Denies: Dysuria. Musculoskeletal: Denies: Joint Pain, Joint Tenderness. Skin: Denies: Rash, Wounds. Neurological: Denies: Numbness, Tingling, Focal weakness. Psychiatric: Reports: Anxiety, Depression. Denies: Homicidal Ideations, Suicidal Ideations. Hematologic/ Lymphatic: Reports: Anemia. Denies: Easy Bruising, Easy Bleeding Patient Problems: Active and Suspected Problems Type 1 diabetes mellitus with other skin ulcer (Acute) recurrent extensive complicated pilonidal cyst ulcers Pilonidal cyst with abscess (Acute) ? Early small bowel obstruction (Acute) Possible Infectious Colitis (Acute) Abdominal pain (Acute) Inflammation of small intestine (Acute) - Physical Exam Physical Examination: General: awake, alert, oriented x 3 and cooperative. HEENT: EOMI, PERRLA. Lungs: Clear to auscultation. Mild decrease at bases. Heart: Regular rate and rhythm. Abdomen: soft, mildly distended. Extremities: no cyanosis, clubbing. Mild edema in lower extremities. Back: There is a recurrent extensive complicated pilonidal cyst ulcers. Measures 10 x 4 cm. Multiple openings and localized maceration. Some tenderness to palpation. Some nonpurulent drainage noted. Neurological: cranial nerves II-XII grossly intact. Psychiatric: normal mood and affect. Vital Signs Temp Pulse Resp BP Pulse Ox 98.7 F 76 16 144/71 H 93 08/14/17 21:24 08/14/17 21:24 08/14/17 21:24 08/14/17 21:24 08/14/17 21:24 Oxygen Flow Rate 1 Oxygen Delivery Method Nasal Cannula Weight: 209 lb 10.554 oz Body Mass Index (BMI) 32.7 Intake and Output for Last 24 Hours Intake Total 1603 / 1603 1748 / 1748 2180 / 2180 Output Total 1550 / 1550 500 / 500 4200 / 4200 Balance 53 / 53 1248 / 1248 -2019 / -2019 Microbiology Past 72 Hours 08/12/17 08:30 Gram Stain - Final Wound - Buttock Wound Culture - Preliminary Laboratory Tests Past 24 Hrs WBC 5.8 RBC 2.39 L Hgb 7.7 L Hct 24.2 L POC Glucose POC Glucose 204 H 93 134 H POC Glucose 172 H Assessment/Plan Active and Suspected Problems Type 1 diabetes mellitus with other skin ulcer (Acute) recurrent extensive complicated pilonidal cyst ulcers Pilonidal cyst with abscess (Acute) ? Early small bowel obstruction (Acute) Possible Infectious Colitis (Acute) Abdominal pain (Acute) Inflammation of small intestine (Acute) Assessment 1. Recurrent extensive complicated pilonidal cyst ulcers. 2. ESRD on dialysis. 3. Diabetes mellitus. 4. Anemia of chronic disease. 5. Smoker. Plan Recommend surgical preparation of this sacral area with excision recurrent extensive complicated pilonidal cyst ulcers. Will send tissue to Pathology for analysis to rule out carcinoma. Will send tissue to Microbiology for culture. A positive culture may necessitate antibiotic modification. Currently she is on Zosyn and will continue that. Will leave the wound open initially and try and place the VAC in this area. If there is trouble with the VAC, may need to go to daily dressing changes with a Silver dressing. If the wound extends very close to the anal opening, and there is wound care difficulties after surgery with stool contamination, patient would need a temporary diverting colostomy to allow better healing. Anticipate increased metabolic demands from the surgery and the infection. Will check a Prealbumin. Encourage nutritional supplementation with protein to help the healing process. Her Hgb is low today at 7.7. She gets dialysis three days per week on , , and . Will have her receive PRBC today when she gets dialyzed in preparation for the surgery. Will schedule the surgery for tomorrow. After discharge, can followup at the [facility] Center. If there is a plateau in the healing process, can consider delayed closure with skin grafting. At that point, would need to stop smoking to allow better healing of the elective skin graft. Encouraged the patient to stop smoking as it may have deleterious effects on wound healing. Patient was informed of the risks and complications of the procedure including alternatives to surgery. These were discussed with her personally. She voices understanding and wishes to proceed. She understands that after surgery, the wound would be left open and wound care instituted. Code Visit Inpatient E AND M: [id number] Init Hosp L2 - ICD-10 - L05.01, N18.6, E10.622, D63.8, F17.200 08/15/172037 <Electronically signed by Kayode Munroe MD> Date Kayode Munroe MD Cosigner Signature (if applicable): Date CC: Emily Munoz PA-C; Emily Sands PA-C; Rivka Charles; Roberto Roman DO; Kayode Munroe MD; Ivania Martinez M.D.; Fátima Luo MD; Mirza Molina MD; Alireza Kulkarni MD; Petty Zhang MD; Bryant Addison MD; Ric Mccrary MD; [facility] Signed BEDSIDE GLUCOSE Collected: 08/15/2017 Status: F Source: CIARAN 5:05 PM [facility] REPOSITORY TYPE CODE TESTS RESULT OUT OF REFERENCE UNITS RANGE LAB L501.080 70-110 mg/dL High BEDSIDE GLU 199 Result Comment: MANAGEMENT OF PATIENT CARE PER NURSING PROTOCOL Performed By: #### L501.080 #### [facility] Point of Care [address] [place], [place] [address] BEDSIDE GLUCOSE Collected: 08/15/2017 Status: F Source: CIARAN 1:45 PM [facility] REPOSITORY TYPE CODE TESTS RESULT OUT OF REFERENCE UNITS RANGE LAB L501.080 70-110 mg/dL High BEDSIDE GLU 152 Result Comment: MANAGEMENT OF PATIENT CARE PER NURSING PROTOCOL Performed By: #### L501.080 #### [facility] Point of Care [address] [place] [address] Observed: 08/15/2017 Status: F Source: CIARAN CULTURE, DEEP WOUND 11:19 AM [facility] REPOSITORY Order Date: 02/22/17 Comments: COLLECTED IN OR 1119 PILONIDIAL ULCER Gram Stain Gram Stain 1+ White Blood Cells No organisms seen Wound Culture ORGANISM 1: Enterococcus avium Amount Growth Rare ORGANISM 2: Escherichia coli Amount Growth Very Rare Enterococcus avium: REACTION Ampicillin $ <=2 S Benzylpenicillin NF 0.25 S Gentamicin SYN-S S Tigecycline $$$$ <=0.12 S Streptomycin $ SYN-S S Vancomycin $ <=0.5 S (NF) indicates non-formulary drug at [facility]. Approval by Infectious Disease Specialist required before non-formulary drugs may be ordered and/or dispensed. * CLSI guidelines does not recommend testing of cephalosporins. This interpretation is deduced from Beta-lactam/penicillin results. Escherichia coli: REACTION Amoxacillin/Clavulanic Acid $ >=32 R Ampicillin $ >=32 R Ampicillin/Sulbactam $ >=32 R Cefazolin $ >=64 R Cefepime $ <=1 S Ceftriaxone $ <=1 S Ciprofloxacin $ <=0.25 S ESBL - Ertapenim $$$ <=0.5 S Gentamicin $ <=1 S Imipenem *NF <=0.25 S Levofloxacin $ <=0.12 S Piperacillin/Tazobactam $$ 64 I Tobramycin $ <=1 S Trimethoprim/Sulfametho $ >=320 R (NF) indicates non-formulary drug at [facility]. Approval by Infectious Disease Specialist required before non-formulary drugs may be ordered and/or dispensed. Cult, Anaerobic #1:Studies have confirmed that Anaerobic Gram Positive Cocci are routinely susceptible to: Penicillin/Ampicillin, Ampicillin/Sulbactam, Piperacillin/Tazobactam, Cefoxatin, Ertapenem, Imipenem, Meropenem and Metronidazole and vary in resistance to: Clindamycin and Moxifloxacin. #2:PARABACTEROIDES DISTASONIS #3:Studies Have Confirmed That B. Fragilis Group are Routinely Susceptible to: Metronidazole, Piperacillin/Tazobactam, Tigecycline, Ertapenem, Imipenem, Meropenem and variable in resistance to: Clindamycin, Moxifloxacin, Cefoxitin and Ampicillin/Sulbactam. Copy of report sent to Infection Control Printer [id number] 08/22/1784 FLAQUITO. RESULTS CALLED TO JEAN AT 'S OFFICE 08/22/17927 Fiorella Sharma. REPORT READ BACK BY SAME. ORGANISM 1: Anaerobic cocci ORGANISM 2: Gram negative carissa ORGANISM 3: Bacteroides species Beta Lactamase Positive Performed By: #### M100.1500 #### [facility] [address] [place], [address] BEDSIDE GLUCOSE Collected: 08/15/2017 Status: F Source: CIARAN 8:23 AM [facility] REPOSITORY TYPE CODE TESTS RESULT OUT OF REFERENCE UNITS RANGE LAB L501.080 70-110 mg/dL High BEDSIDE GLU 153 Result Comment: MANAGEMENT OF PATIENT CARE PER NURSING PROTOCOL Performed By: #### L501.080 #### [facility] Point [facility] [address] [address] BEDSIDE GLUCOSE Collected: 08/15/2017 Status: F Source: CIARAN 6:12 AM [facility] REPOSITORY TYPE CODE TESTS RESULT OUT OF REFERENCE UNITS RANGE LAB L501.080 70-110 mg/dL High BEDSIDE GLU 144 Result Comment: MANAGEMENT OF PATIENT CARE PER NURSING PROTOCOL Performed By: #### L501.080 #### [facility] [facility] Care [address] [place] [address] CBC-COMPLETE BLOOD CNT Collected: 08/15/2017 Status: F Source: CIARAN NO DIFF 5:24 AM [facility] REPOSITORY TYPE CODE TESTS RESULT OUT OF RANGE REFERENCE UNITS LAB L100.1000 4.4-11.0 K/mm3 Normal WBC 5.5 LAB L100.1200 4.2-5.4 M/mm3 Low RBC 3.08 LAB L100.1300 12.0-15.0 g/dl Low HGB 9.5 LAB L100.1400 37-47 % Low HCT 29.1 LAB L100.1500 81-99 fL Normal MCV 94.5 LAB L100.1600 27.0-32.0 pg Normal MCH 30.8 LAB L100.1700 32-36 g/gl Normal MCHC 32.6 LAB L100.1810 11.6-14.6 % High RDW CV 17.2 LAB L100.1820 35.1-43.9 fl High RDW SD 58.9 LAB L100.1900 150-450 K/mm3 Low PLT 123 LAB L100.2000 6.2-12.0 fl Normal MPV 8.5 Performed By: #### L100.0500 #### [facility] [address] [place], [address] PROTHROMBIN TIME W/INR Collected: 08/15/2017 Status: F Source: ONE[place] 5:24 AM [facility] REPOSITORY TYPE CODE TESTS RESULT OUT OF RANGE REFERENCE UNITS LAB L300.4150 11.7-14.9 SECONDS High PROTIME 15.3 LAB L300.4200 Normal INR 1.3 Performed By: #### L300.3900, L300.4310 #### [facility] [address] [place], [address] PARTIAL THROMBOPLAST Collected: 08/15/2017 Status: F Source: ONE[place] TIME 5:24 AM [facility] REPOSITORY TYPE CODE TESTS RESULT OUT OF REFERENCE UNITS RANGE LAB L300.4310 24.1-36.2 Seconds High PTT 37.1 Performed By: #### L300.3900, L300.4310 #### [facility] [address] [place], [address] BASIC METABOLIC Collected: 08/15/2017 Status: F Source: ONE[place] PROFILE (BMP) 5:24 AM [facility] REPOSITORY TYPE CODE TESTS RESULT OUT OF RANGE REFERENCE UNITS LAB L501.0100 70-110 mg/dL High GLU 137 Result Comment: Fasting Glucose result greater than or equal to 126 mg/dL suggests DIABETES MELLITUS per A.D.A. criteria. LAB L501.1000 7-18 mg/dL High BUN 22 LAB L501.1100 0.55-1.02 mg/dL High CREAT,SERUM 4.53 Result Comment: The validity of the calculated GFR AND GFRAA in patients over 70 years has not been determined. Clinical correlation is essential. LAB L501.1110 >60 mL/min Low EST GFR 11 Result Comment: Non- GFR Calc LAB L501.1115 >60 mL/min Low EST GFR - AA 14 Result Comment: GFR Calc LAB L501.1255 ml/min Normal Estimated CRCL 14.99 LAB L501.1300 10-20 RATIO Low BUN/CRE 4.9 LAB L501.2200 8.5-10 mg/dL Low .1 CA 8.0 LAB L501.5300 136-14 mmol/L Low 5 NA 134 LAB L501.5600 3.5-5. mmol/L Low 1 K 3.2 LAB L501.5900 98-107 mmol/L Low CL 94 LAB L501.6100 21.0-3 mmol/L Normal 2.0 CO2 31.0 LAB L501.6200 5-15 Normal GAP 9 Performed By: #### L500.2500, L506.0500 #### [facility] [address] [facility] [address] PREALBUMIN Collected: 08/15/2017 Status: F Source: CIARAN 5:24 AM [facility] REPOSITORY TYPE CODE TESTS RESULT OUT OF REFERENCE UNITS RANGE LAB L506.0500 20.0-40.0 mg/dL Low PREALBUMIN 18.0 Performed By: #### L500.2500, L506.0500 #### [facility] [address] [facility] [address] BEDSIDE GLUCOSE Collected: 08/14/2017 Status: F Source: CIARAN 9:44 PM [facility] REPOSITORY TYPE CODE TESTS RESULT OUT OF REFERENCE UNITS RANGE LAB L501.080 70-110 mg/dL High BEDSIDE GLU 204 Result Comment: MANAGEMENT OF PATIENT CARE PER NURSING PROTOCOL Performed By: #### L501.080 #### [facility] Point of Care [address] [place] [address] BEDSIDE GLUCOSE Collected: 08/14/2017 Status: F Source: CIARAN 4:31 PM [facility] REPOSITORY TYPE CODE TESTS RESULT OUT OF RANGE REFERENCE UNITS LAB L501.080 70-110 mg/dL Normal BEDSIDE GLU 93 Result Comment: MANAGEMENT OF PATIENT CARE PER NURSING PROTOCOL Performed By: #### L501.080 #### [facility] Point of Care [address] [place] [address] TYPE AND SCREEN Collected: 08/14/2017 Status: F Source: CIARAN 2:25 PM [facility] REPOSITORY Order Comment: CMV NEG? N Number of units to transfuse: 2 Comments: complicated recurrent pilonidal cyst ulcers Is this product for anemia associated with hemoglobinopathy? N Is pt's Hgb is </= to 7.0 mg/dl or Hct </= 21%? N Is there an orthostatic change in BP (SBP drop > 10mmHg)? N Is this for PREOP anemia correction prior to anesthesia? Y Reason for Ordering Blood: Chronic Is there symptomatic anemia? N Are the blood/blood products to be transfused? Y Is the patient having/had surgery? Y Anticipated time of surgery: 1030 CMV NEG?* N Give When? With Dialysis Irradiated? N Leukodepleted? Y Reason for Type AND Screen/Red Cells: ANEMIA Surgery Date: 08/15/17 Other - use comments: . Type of Surgery: OTHER TYPE CODE TESTS RESULT OUT OF RANGE REFERENCE UNITS LAB B10.0800 A Normal BLOOD TYPE GEL NEGATIVE LAB B100.4000 High Antibody POSITIVE Screen Performed By: #### B101.7450, B100.6650, B101.2000 #### [facility] [address] [place], [address] DIRECT ANTIGLOBULIN Collected: 08/14/2017 Status: F Source: CIARAN RONNELL MARIXA 2:25 PM [facility] REPOSITORY Order Comment: CMV NEG? N Number of units to transfuse: 2 Comments: complicated recurrent pilonidal cyst ulcers Is this product for anemia associated with hemoglobinopathy? N Is pt's Hgb is </= to 7.0 mg/dl or Hct </= 21%? N Is there an orthostatic change in BP (SBP drop > 10mmHg)? N Is this for PREOP anemia correction prior to anesthesia? Y Reason for Ordering Blood: Chronic Is there symptomatic anemia? N Are the blood/blood products to be transfused? Y Is the patient having/had surgery? Y Anticipated time of surgery: 1030 CMV NEG?* N Give When? With Dialysis Irradiated? N Leukodepleted? Y Reason for Type AND Screen/Red Cells: ANEMIA Surgery Date: 08/15/17 Other - use comments: . Type of Surgery: OTHER TYPE CODE TESTS RESULT OUT OF RANGE REFERENCE UNITS LAB B100.6950 NEGATIVE Normal DIRECT NEG RONNELL= w/POLYSPECIF IC Performed By: #### B101.7450, B100.6650, B101.2000 #### [facility] [address] [place], [place], [address] ANTIBODY PANEL ID Collected: 08/14/2017 Status: F Source: ONEIDA 2:25 PM [facility] REPOSITORY Order Comment: CMV NEG? N Number of units to transfuse: 2 Comments: complicated recurrent pilonidal cyst ulcers Is this product for anemia associated with hemoglobinopathy? N Is pt's Hgb is </= to 7.0 mg/dl or Hct </= 21%? N Is there an orthostatic change in BP (SBP drop > 10mmHg)? N Is this for PREOP anemia correction prior to anesthesia? Y Reason for Ordering Blood: Chronic Is there symptomatic anemia? N Are the blood/blood products to be transfused? Y Is the patient having/had surgery? Y Anticipated time of surgery: 1030 CMV NEG?* N Give When? With Dialysis Irradiated? N Leukodepleted? Y Reason for Type AND Screen/Red Cells: ANEMIA Surgery Date: 08/15/17 Other - use comments: . Type of Surgery: OTHER TYPE CODE TESTS RESULT OUT OF REFERENCE UNITS RANGE LAB B101.2000 ANTIBODY PANEL Result Comment: ANTI-C ANTI-D Performed By: #### B101.7450, B100.6650, B101.1999 #### [facility] [address] [place], [place], [address] RC Collected: 08/14/2017 Status: F Source: ONE[place] 2:25 PM [facility] REPOSITORY TYPE CODE TESTS RESULT OUT OF REFERENCE UNITS RANGE LAB U100.0000 [id number] TRANSFUSED PRODUCT: T AND S with Crossmatch, Red Cells COUNT: 2 Performed By: #### U100.0000 #### [facility] - refer to report for specific site BEDSIDE GLUCOSE Collected: 08/14/2017 Status: F Source: CIARAN 11:59 AM [facility] REPOSITORY TYPE CODE TESTS RESULT OUT OF REFERENCE UNITS RANGE LAB L501.080 70-110 mg/dL High BEDSIDE GLU 134 Result Comment: MANAGEMENT OF PATIENT CARE PER NURSING PROTOCOL Performed By: #### L501.080 #### [facility] Point of Care [address] [place], [place] [address] BEDSIDE GLUCOSE Collected: 08/14/2017 Status: F Source: CIARAN 6:36 AM [facility] REPOSITORY TYPE CODE TESTS RESULT OUT OF REFERENCE UNITS RANGE LAB L501.080 70-110 mg/dL High BEDSIDE GLU 172 Result Comment: MANAGEMENT OF PATIENT CARE PER NURSING PROTOCOL Performed By: #### L501.080 #### [facility] Point of Care [address] [facility] [address] [place], [place] [id number] CBC-COMPLETE BLOOD CNT Collected: 08/14/2017 Status: F Source: CIARAN NO DIFF 5:12 AM [facility] REPOSITORY TYPE CODE TESTS RESULT OUT OF RANGE REFERENCE UNITS LAB L100.1000 4.4-11.0 K/mm3 Normal WBC 5.8 LAB L100.1200 4.2-5.4 M/mm3 Low RBC 2.39 LAB L100.1300 12.0-15.0 g/dl Low HGB 7.7 LAB L100.1400 37-47 % Low HCT 24.2 LAB L100.1500 81-99 fL High MCV 101.3 LAB L100.1600 27.0-32.0 pg High MCH 32.2 LAB L100.1700 32-36 g/gl Low MCHC 31.8 LAB L100.1810 11.6-14.6 % Normal RDW CV 14.6 LAB L100.1820 35.1-43.9 fl High RDW SD 50.7 LAB L100.1900 150-450 K/mm3 Low PLT 135 LAB L100.2000 6.2-12.0 fl Normal MPV 8.7 Performed By: #### L100.0500 #### [facility] [address] [place], [place], [id number] BASIC METABOLIC Collected: 08/14/2017 Status: F Source: CIARAN PROFILE (BMP) 5:12 AM [facility] REPOSITORY TYPE CODE TESTS RESULT OUT OF RANGE REFERENCE UNITS LAB L501.0100 70-110 mg/dL High GLU 172 Result Comment: Fasting Glucose result greater than or equal to 126 mg/dL suggests DIABETES MELLITUS per A.D.A. criteria. LAB L501.1000 7-18 mg/dL High BUN 35 LAB L501.1100 0.55-1.02 mg/dL High CREAT,SERUM 6.23 Result Comment: The validity of the calculated GFR AND GFRAA in patients over 70 years has not been determined. Clinical correlation is essential. LAB L501.1110 >60 mL/min Low EST GFR 8 Result Comment: Non- GFR Calc LAB L501.1115 >60 mL/min Low EST GFR - AA 9 Result Comment: GFR Calc LAB L501.1255 ml/min Normal Estimated CRCL 10.90 LAB L501.1300 10-20 RATIO Low BUN/CRE 5.6 LAB L501.2200 8.5-10 mg/dL Low .1 CA 8.2 LAB L501.5300 136-14 mmol/L Normal 5 NA 137 LAB L501.5600 3.5-5. mmol/L Normal 1 K 4.2 LAB L501.5900 98-107 mmol/L Normal CL 101 LAB L501.6100 21.0-3 mmol/L Normal 2.0 CO2 27.0 LAB L501.6200 5-15 Normal GAP 9 Performed By: #### L500.2500 #### [facility] [address] [place], [place], [id number] BEDSIDE GLUCOSE Collected: 08/13/2017 Status: F Source: ONEIDA 8:07 PM [facility] REPOSITORY TYPE CODE TESTS RESULT OUT OF REFERENCE UNITS RANGE LAB L501.080 70-110 mg/dL High BEDSIDE GLU 236 Result Comment: MANAGEMENT OF PATIENT CARE PER NURSING PROTOCOL Performed By: #### L501.080 #### [facility] Point of Care [address] [place], [place] [address] BEDSIDE GLUCOSE Collected: 08/13/2017 Status: F Source: ONEIDA 4:46 PM [facility] REPOSITORY TYPE CODE TESTS RESULT OUT OF REFERENCE UNITS RANGE LAB L501.080 70-110 mg/dL High BEDSIDE GLU 148 Result Comment: Dr Cueto Followed MANAGEMENT OF PATIENT CARE PER NURSING PROTOCOL Performed By: #### L501.080 #### [facility] Point of Care [address] [place] [address] BEDSIDE GLUCOSE Collected: 08/13/2017 Status: F Source: CIARAN 12:13 PM [facility] REPOSITORY TYPE CODE TESTS RESULT OUT OF REFERENCE UNITS RANGE LAB L501.080 70-110 mg/dL High BEDSIDE GLU 152 Result Comment: MANAGEMENT OF PATIENT CARE PER NURSING PROTOCOL Performed By: #### L501.080 #### [facility] Point of Care [address] [place] [address] BEDSIDE GLUCOSE Collected: 08/13/2017 Status: F Source: CIARAN 9:33 AM [facility] REPOSITORY TYPE CODE TESTS RESULT OUT OF REFERENCE UNITS RANGE LAB L501.080 70-110 mg/dL High BEDSIDE GLU 181 Result Comment: Dr Cueto Followed MANAGEMENT OF PATIENT CARE PER NURSING PROTOCOL Performed By: #### L501.080 #### [facility] Point of Care [address] [facility] [place] [address] CBC W/DIFF, AUTOMATED Collected: 08/13/2017 Status: F Source: CIARAN 5:25 AM [facility] REPOSITORY TYPE CODE TESTS RESULT OUT OF RANGE REFERENCE UNITS LAB L100.1000 4.4-11.0 K/mm3 Normal WBC 6.5 LAB L100.1200 4.2-5.4 M/mm3 Low RBC 2.79 LAB L100.1300 12.0-15.0 g/dl Low HGB 8.8 LAB L100.1400 37-47 % Low HCT 28.3 LAB L100.1500 81-99 fL High MCV 101.4 LAB L100.1600 27.0-32.0 pg Normal MCH 31.5 LAB L100.1700 32-36 g/gl Low MCHC 31.1 LAB L100.1810 11.6-14.6 % High RDW CV 15.2 LAB L100.1820 35.1-43.9 fl High RDW SD 55.1 LAB L100.1900 150-450 K/mm3 Low PLT 137 LAB L100.2000 6.2-12.0 fl Normal MPV 8.7 LAB L100.2100 47-70 % High NEUT% 78.1 LAB L100.2200 19-41 % Low LY% 11.5 LAB L100.2300 0-10 % Normal MONO% 5.7 LAB L100.2400 0-5 % Normal EO% 4.2 LAB L100.2500 0-1 % Normal BASO% 0.3 LAB L100.2550 0.0-0.9 % Normal IM GRAN % 0.200 Result Comment: IG% - Immature Granulocytes (promyelocytes, myelocytes and metamyelocytes) > 1% indicates that a LEFT SHIFT is Present. LAB L100.2620 2.0-7.7 X10 3/uL Normal Absolute Neut 5.1 LAB L100.2720 0.83-4.51 X10 3/ul Low Absolute Lymph 0.74 Performed By: #### L100.0100 #### [facility] [address] [place], [address] BASIC METABOLIC Collected: 08/13/2017 Status: F Source: ONE[place] PROFILE (BMP) 5:25 AM [facility] REPOSITORY TYPE CODE TESTS RESULT OUT OF RANGE REFERENCE UNITS LAB L501.0100 70-110 mg/dL High GLU 181 Result Comment: Fasting Glucose result greater than or equal to 126 mg/dL suggests DIABETES MELLITUS per A.D.A. criteria. LAB L501.1000 7-18 mg/dL High BUN 31 LAB L501.1100 0.55-1.02 mg/dL High CREAT,SERUM 5.33 Result Comment: The validity of the calculated GFR AND GFRAA in patients over 70 years has not been determined. Clinical correlation is essential. LAB L501.1110 >60 mL/min Low EST GFR 9 Result Comment: Non- GFR Calc LAB L501.1115 >60 mL/min Low EST GFR - AA 11 Result Comment: GFR Calc LAB L501.1255 ml/min Normal Estimated CRCL 12.74 LAB L501.1300 10-20 RATIO Low BUN/CRE 5.8 LAB L501.2200 8.5-10 mg/dL Low .1 CA 8.1 LAB L501.5300 136-14 mmol/L Normal 5 NA 139 LAB L501.5600 3.5-5. mmol/L Normal 1 K 4.1 LAB L501.5900 98-107 mmol/L Normal CL 102 LAB L501.6100 21.0-3 mmol/L Normal 2.0 CO2 27.0 LAB L501.6200 5-15 Normal GAP 10 Performed By: #### L500.2500 #### [facility] [address] [place], [address] BEDSIDE GLUCOSE Collected: 08/13/2017 Status: F Source: ONEIDA 2:09 AM [facility] REPOSITORY TYPE CODE TESTS RESULT OUT OF REFERENCE UNITS RANGE LAB L501.080 70-110 mg/dL High BEDSIDE GLU 183 Result Comment: MANAGEMENT OF PATIENT CARE PER NURSING PROTOCOL Performed By: #### L501.080 #### [facility] Point of Care [address] [place] [address] ABDOMEN SINGLE VIEW Observed: 08/13/2017 Status: F Source: ONE[place] 12:00 AM [facility] REPOSITORY [facility] Imaging Services [address] [place] [address] Abdomen Single View MR#: [id number] Acct: [id number] Name: KOURTNEY REZA Rep #: [id number] : 1975 F 41 From: Val Solitario MD PCP: Ric Mccrary MD Status: ADM IN Study: Abdomen Single View Date of Exam: 08/13/17 Exam# [id number] Ordering Dr: Rivka Charles STUDY: X-RAY - ABDOMEN/PELVIS REASON FOR EXAM: Female, 41 years old. Evaluate for small bowel obstruction. TECHNIQUE: Two AP supine views of the abdomen and pelvis. COMPARISON: CT of the abdomen and pelvis dated August 12, 2017 and radiographs of the abdomen dated August 12, 2017. FINDINGS: Normal visualized lung bases. There is an unremarkable bowel gas pattern. Enteric contrast is visible within the colon. There is no obvious organomegaly, mass or dilated bowel. Normal soft tissue structures. There is mild curvature of the thoracic and lumbar spine convexity towards the right. There are multilevel degenerative changes of the thoracic and lumbar spine. RAD/Abdomen Single View IMPRESSION: Enteric contrast is still visible in the colon but there has been interim decrease in amount of enteric contrast since the previous study. Electronically Signed: Val Solitario MD at 6:13 EST , Service support , CC: Rivka Charles; Ric Mccrary MD Tester Operator Helper: Signed BEDSIDE GLUCOSE Collected: 08/12/2017 Status: F Source: CIARAN 9:18 PM [facility] REPOSITORY TYPE CODE TESTS RESULT OUT OF REFERENCE UNITS RANGE LAB L501.080 70-110 mg/dL High BEDSIDE GLU 127 Result Comment: MANAGEMENT OF PATIENT CARE PER NURSING PROTOCOL Performed By: #### L501.080 #### [facility] Point of Care [address] [address] CONSULTATION Observed: 08/12/2017 Status: F Source: ONE[place] 8:24 PM [facility] REPOSITORY [facility] Medical Records Department [address] [place] [address] Consultation 08/12/172014 MR#: [id number] Acct: [id number] Name: KOURTNEY REZA Rep #: [id number] : 1975 41 From: Mirza Molina MD PCP: Ric Mccrary MD Status: ADM IN [id number] - Renal 08/12/17 PCP/ Referring MD: Requesting physician: Dr. Charles Primary care physician: Dr. Ric Mccrary Reason for Consultation:: End-stage renal disease - History of Present Illness History of Present Illness: The patient is a 41 year old F, and to our service with end- stage renal disease secondary to diabetic nephropathy, is admitted with sudden onset abdominal pain. The patient started experiencing mid abdominal pain with radiation to the back starting at 1:30 AM this morning. The patient also had associated nausea without vomiting. She had one loose bowel movement prior to presentation to the hospital. The patient has been evaluated by surgery service. There is no obvious bowel obstruction according to Dr. Zhang's evaluation. The patient is current chest pain, shortness of breath at rest, or increasing edema. Her nausea has resolved, and of the abdominal pain has improved. There has been no further bowel movement since admission. The patient dialyzes on a Monday, Monday and Monday schedule at [facility] [place]. Patient did receive her scheduled dialysis yesterday prior to admission. - Allergies Allergies: Allergies latex Allergy (Verified 08/12/17 02:03) Rash levofloxacin [From Levaquin] Adverse Reaction (Verified 08/12/17 02:03) PT CAN'T REMEMBER PT CAN'T REMEMBER metoclopramide HCl [From Reglan] Adverse Reaction (Verified 08/12/17 02:03) Nausea NSAIDS (Non-Steroidal Anti-Inflamma Adverse Reaction (Verified 08/12/17 02:03) kidney function oxycodone HCl [From Percocet] Adverse Reaction (Verified 08/12/17 02:03) HALLUCINATIONS - Current Medications Current Medications: Current Medications Dextrose (D50w Syringe) 0 gm IV X1 PRN; Protocol PRN Reason: Hypoglycemia Glucagon () 1 mg IM .X1 PRN PRN Reason: Hypoglycemia Heparin Sodium (Porcine) (Heparin Na) 5,000 unit SC BID [facility] Last Admin: 08/12/17 10:01 Dose: Not Given Hydralazine HCl (Apresoline) 10 mg IV Q4H PRN PRN PRN Reason: SBP > 160 Famotidine 20 mg/ Sodium (Chloride) 10 mls @ 300 mls/hr IV Q12 [facility] Last Admin: 08/12/17 10:01 Dose: 300 mls/hr Piperacillin Sod/Tazobactam Sod (Zosyn) 3.375 gm in 50 mls @ 12.5 mls/hr IV Q12 [facility] Dextrose/Sodium Chloride () 1,000 mls @ 100 mls/hr IV .Q10H [facility] Last Admin: 08/12/17 19:06 Dose: 100 mls/hr Insulin Aspart (Novolog Flexpen (Bkc)) 0 units SC ACHS [facility] PRN Reason: Protocol Last Admin: 08/12/17 17:01 Dose: Not Given Insulin Detemir (Levemir (Bkc)) 5 units SC QHS [facility] Last Admin: 08/12/17 18:34 Dose: Not Given Lorazepam (Ativan) 0.5 mg IV Q6H PRN PRN PRN Reason: ANXIETY Magnesium Hydroxide (Milk Of Magnesia) 30 ml PO DAILY PRN PRN PRN Reason: Constipation Metoprolol Tartrate (Lopressor (Beta Lewis)) 5 mg IV Q6H PRN PRN PRN Reason: SBP > 160 Morphine Sulfate (Morphine) 2 - 4 mg IV Q4H PRN PRN PRN Reason: MOD-SEVERE PAIN (4-10/10) Last Admin: 08/12/17 17:25 Dose: 2 mg Nicotine (Nicoderm Cq (Pbkc)) 7 mg TRANSDERM. DAILY [facility] Last Admin: 08/12/17 08:02 Dose: Not Given Ondansetron HCl (Zofran) 4 mg IV Q8H PRN PRN PRN Reason: NAUSEA Last Admin: 08/12/17 13:53 Dose: 4 mg Promethazine HCl (Phenergan (Ll)) 12.5 mg IV Q6H PRN PRN PRN Reason: NAUSEA/VOMITING Sodium Chloride () 5 - 30 ml IV UD PRN PRN Reason: SALINE FLUSH - Past Medical History Past Medical History (Chronic Problems): Chronic Problems GABRIEL (obstructive sleep apnea) (Chronic) ESRD on dialysis (Chronic) Depression (Chronic) Anxiety (Chronic) HTN (hypertension) (Chronic) Nonischemic cardiomyopathy (Chronic) With ejection fraction 45 - 50%; with angiographically normal coronary arteries 05/2013; follows up with Dr. Underwood S/P repair of PDA (patent ductus arteriosus) (Chronic) At young age Diabetes mellitus type 1 (Chronic) Hyperlipidemia (Chronic) Obesity (Chronic) Systolic congestive heart failure (Chronic) EF 40% Left ventricular diastolic dysfunction, NYHA class 2 (Chronic) Tobacco abuse (Chronic) Iron deficiency anemia due to chronic blood loss (Chronic) Dysmenorrhea history, s/p hysterectomy. Obesity (BMI 30.0-34.9) (Chronic) Gastroparesis (Chronic) - Past Surgical History Surgical History: appendectomy, - - c-sections, L breast I+D for abscess, fistula placement LUE, L ankle surgery, appendectomy, DOMINGA w/ BSOO, PDA repair. - Social History Smoking Status: Current every day smoker Alcohol: None Drugs: None - Family History Maternal History Items: Cancer, COPD, Diabetes, Hypertension, Renal Disease, Stroke Paternal History Items: Diabetes Sibling History Items: Cancer, Diabetes Review of Systems Constitutional: Reports: Anorexia, Malaise. Denies: Chills, Fever, Weight Change Eyes: Denies: Blurred vision, Pain, Redness HEENT: Denies: Head Aches, Sinus Congestion, Sinus Drainage Cardiovascular: Denies: Chest Pain, Chest Pressure, Edema, Palpitations Respiratory: Denies: Cough, Shortness of breath at rest, Sputum production Gastrointestinal: Reports: Abdominal Pain, Diarrhea, Nausea. Denies: Constipation, Vomiting Genitourinary: Denies: Dysuria, Hematuria, Incontinence Musculoskeletal: Denies: Joint Pain, Joint Tenderness Skin: Denies: Rash, Wounds Neurological: Denies: Numbness, Tingling, Focal weakness Psychiatric: Denies: Anxiety, Homicidal Ideations, Suicidal Ideations Hematologic/ Lymphatic: Denies: Easy Bruising, Easy Bleeding Patient Problems: Active and Suspected Problems ? Early small bowel obstruction (Acute) Possible Infectious Colitis (Acute) Abdominal pain (Acute) Inflammation of small intestine (Acute) - Physical Exam General: Alert, Oriented x3 HEENT: Atraumatic, Normocephalic Oral: Moist Mucosa Neck: Supple, No JVD Lungs: Clear to auscultation Cardiovascular: Normal S1, Normal S2, No murmurs Abdomen: Bowel Sounds Present, Soft, Tender - mild mid epigastric tenderness without guarding or rebound. Extremities: No clubbing, No cyanosis, No edema Skin: No rashes, No breakdown Musculoskeletal: No Tenderness to Palpation of Joints or Extremities Neurological: Cranial nerves II-XII grossly intact Vital Signs Temp Pulse Resp BP Pulse Ox 98.1 F 86 18 131/66 H 94 08/12/17 18:23 08/12/17 18:23 08/12/17 18:23 08/12/17 18:23 08/12/17 18:23 Oxygen Flow Rate 2 Oxygen Delivery Method Nasal Cannula Weight: 92 kg Body Mass Index (BMI) 32.7 Intake and Output for Last 24 Hours Intake Total 1603 / 1603 Output Total 1550 / 1550 Balance 53 / 53 POC Glucose POC Glucose 109 109 155 H Assessment/Plan Active and Suspected Problems ? Early small bowel obstruction (Acute) Possible Infectious Colitis (Acute) Abdominal pain (Acute) Inflammation of small intestine (Acute) 1. End-stage renal disease. The patient usually dialyzes on a Monday, Monday and Monday dialysis schedule. There is no need for dialysis today. Would recommend dosing medications for creatinine clearance of less than 10. Recommend decreasing Pepcid to once a day. Next scheduled dialysis will be on 08/14/2017. 2. Hypertension. Blood pressure medication is on hold since the patient is n.p.o. Her blood pressure has been acceptable. We will continue to monitor. 3. Anemia. Continue to monitor hemoglobin. Continue erythropoiesis stimulating agent with dialysis. 4. Chronic kidney disease-mineral bone disorder. Patient had been on calcium acetate with meals for phosphorus binding. We are holding calcium acetate for now because she is n.p.o. Restart calcium acetate once she is able to eat again. 5. Abdominal pain. Workup is underway as directed by surgery and hospital medicine services. 08/12/172023 <Electronically signed by Mirza Molina MD> Date Mirza Molina MD Cosigner Signature (if applicable): Date CC: Mirza Molina MD; Petty Zhang MD; Ric Mccrary MD Signed BEDSIDE GLUCOSE Collected: 08/12/2017 Status: F Source: [place] 4:26 PM [facility] REPOSITORY TYPE CODE TESTS RESULT OUT OF RANGE REFERENCE UNITS LAB L501.080 70-110 mg/dL Normal BEDSIDE GLU 109 Result Comment: MANAGEMENT OF PATIENT CARE PER NURSING PROTOCOL Performed By: #### L501.080 #### [facility] Point of Care [address] [place] [address] CONSULTATION Observed: 08/12/2017 Status: F Source: [place] 3:46 PM [facility] REPOSITORY [facility] Medical Records Department [address] [place] [address] Consultation 08/12/17 1538 MR#: [id number] Acct: [id number] Name: KOURTNEY REZA Rep #: [id number] : 1975 41 From: Petty Zhang MD PCP: Ric Mccrary MD Status: ADM IN Y Location: MS3 [id number] Problem List (1) Volume overload Status: Acute (2) ? Early small bowel obstruction Status: Acute (3) Possible Infectious Colitis Status: Acute (4) Abdominal pain Status: Acute (5) Inflammation of small intestine Status: Acute Reason for Consult Date of Consultation: 08/12/17 History of Present Illness: The patient is a 41 year old F with a complaint of abdominal pain, nausea and vomiting overnight last night. The patient was nauseated and vomited. During vomiting. She noted her umbilical hernia was increasingly distended and had discomfort in that area radiating through to her back. She also noted a liquid bowel movement that was loose prior to presentation in the emergency department. The patient presented emerged with these complaints. She denied fever or chills. She underwent evaluation included a noncontrast CT scan which was read as questionable edema of the proximal small bowel versus early partial small bowel obstruction. Since admission, the patient has not had any further episodes of vomiting. She denies nausea. She still notes some degree of abdominal discomfort. The umbilical hernia is not sensitive any further and seems to be somewhat smaller than when she was retching. She has a complex past medical history including coronary artery disease, cardiomyopathy with a decreased ejection fraction, COPD. The patient is on dialysis due to her renal failure. She received dialysis on Monday without difficulty. Past Medical History Past Medical History (Chronic Problems): Chronic Problems GABRIEL (obstructive sleep apnea) (Chronic) ESRD on dialysis (Chronic) Depression (Chronic) Anxiety (Chronic) HTN (hypertension) (Chronic) Nonischemic cardiomyopathy (Chronic) With ejection fraction 45 - 50%; with angiographically normal coronary arteries 05/2013; follows up with Dr. Underwood S/P repair of PDA (patent ductus arteriosus) (Chronic) At young age Diabetes mellitus type 1 (Chronic) Hyperlipidemia (Chronic) Obesity (Chronic) Systolic congestive heart failure (Chronic) EF 40% Left ventricular diastolic dysfunction, NYHA class 2 (Chronic) Tobacco abuse (Chronic) Iron deficiency anemia due to chronic blood loss (Chronic) Dysmenorrhea history, s/p hysterectomy. Obesity (BMI 30.0-34.9) (Chronic) Gastroparesis (Chronic) Allergies latex Allergy (Verified 08/12/17 02:03) Rash levofloxacin [From Levaquin] Adverse Reaction (Verified 08/12/17 02:03) PT CAN'T REMEMBER PT CAN'T REMEMBER metoclopramide HCl [From Reglan] Adverse Reaction (Verified 08/12/17 02:03) Nausea NSAIDS (Non-Steroidal Anti-Inflamma Adverse Reaction (Verified 08/12/17 02:03) kidney function oxycodone HCl [From Percocet] Adverse Reaction (Verified 08/12/17 02:03) HALLUCINATIONS Home Medications: Ambulatory Orders Medication Instructions Recorded Diltiazem HCl [Tiazac] 240 mg PO DAILY 07/10/15 Aspirin [Aspirin, Baby] 81 mg PO DAILY@0800 01/26/16 Surgical History: appendectomy, - - c-sections, L breast I+D for abscess, fistula placement LUE, L ankle surgery, appendectomy, DOMINGA w/ BSOO, PDA repair. Psychiatric History: Anxiety, Depression [employer] History: - - Prior dysmenorrhea, s/p hysterectomy. Lives: Spouse/ Significant Other Smoking Status: Current every day smoker Tobacco Use: Cigarettes Alcohol: None Drugs: None - *Family History Maternal History Items: Cancer, COPD, Diabetes, Hypertension, Renal Disease, Stroke Paternal History Items: Diabetes Sibling History Items: Cancer, Diabetes Review of Systems Constitutional: Denies: Chills, Fever, Weight Change HEENT: Denies: Head Aches, Sinus Congestion, Sinus Drainage Cardiovascular: Denies: Chest Pain, Palpitations Respiratory: Denies: Cough, Shortness of breath at rest, Sputum production Gastrointestinal: Reports: Abdominal Pain, Nausea, Vomiting Genitourinary: Denies: Dysuria Musculoskeletal: Denies: Joint Pain, Joint Tenderness Skin: Denies: Rash, Wounds Neurological: Denies: Numbness, Tingling, Focal weakness Psychiatric: Denies: Anxiety, Depression, Homicidal Ideations, Suicidal Ideations Hematologic/ Lymphatic: Denies: Easy Bruising, Easy Bleeding Patient Problems: Active and Suspected Problems ? Early small bowel obstruction (Acute) Possible Infectious Colitis (Acute) Abdominal pain (Acute) Inflammation of small intestine (Acute) - Physical Exam General: Alert, Oriented x3, Cooperative Neck: Supple, No JVD Lungs: Clear to auscultation, Normal air movement Cardiovascular: Regular rate, Regular Rhythm Abdomen: Bowel Sounds Present, Soft, Non Tender, Hernia - at the umbilicus nontender and partially reducible Vital Signs Temp Pulse Resp BP Pulse Ox 98.5 F 73 18 125/58 H 96 08/12/17 12:06 08/12/17 14:00 08/12/17 14:00 08/12/17 12:06 08/12/17 14:00 Oxygen Flow Rate 2 Oxygen Delivery Method Nasal Cannula Weight: 92 kg Body Mass Index (BMI) 32.7 Intake and Output for Last 24 Hours Intake Total 796 / 796 Output Total 250 / 250 Balance 546 / 546 POC Glucose POC Glucose 109 155 H Assessment/Plan Active and Suspected Problems ? Early small bowel obstruction (Acute) Possible Infectious Colitis (Acute) Abdominal pain (Acute) Inflammation of small intestine (Acute) nausea, vomiting, abdominal pain-increasing discomfort. Umbilical hernia - creasing discomfort and umbilical hernia site with vomiting, but now decreased. CT scan imaging was reviewed. There was omental fat in the hernia without signs of bowel incarceration. I do not feel she has a bowel obstruction due to her umbilical hernia. There also does not seem to be rather significant findings consistent with a bowel obstruction and given the fact this is a noncontrast CT scan feel that it is difficult to truly say the patient has proximal small bowel thickening. There are certainly no air-fluid levels or heart or signs of bowel obstruction. At this point in time, I would recommend the patient be given CT contrast orally-Gastrografin and obtain a KUB in the morning to see if there are any true signs of obstruction or slowing. If the patient has increased stool output, and additional episodes of diarrhea, but would recommend stool cultures. Currently, the patient noted a bowel movement. My impression is most likely a relatively mild viral gastroenteritis. 08/12/17 1546 <Electronically signed by Petty Zhang MD> Date Petty Zhang MD Cosigner Signature (if applicable): Date CC: Mirza Molina MD; Petty Zhang MD; Ric Mccrary MD Signed ABDOMEN SINGLE VIEW Observed: 08/12/2017 Status: F Source: [place] 12:47 PM [facility] [place] REPOSITORY [facility] Imaging Services [address] [place] [address] Abdomen Single View MR#: [id number] Acct: [id number] Name: KOURTNEY REZA Rep #: [id number] : 1975 F 41 From: Antwon Chino MD PCP: Ric Mccrary MD Status: ADM IN Study: Abdomen Single View Date of Exam: 08/12/17 Exam# [id number] Ordering Dr: Alireza Kulkarni MD STUDY: X-RAY - ABDOMEN/PELVIS REASON FOR EXAM: Female, 41 years old. Evaluate for small bowel obstruction. TECHNIQUE: Frontal view 4 hours after drinking Gastrografin. COMPARISON: Abdominal radiograph dated June 30, 2015. FINDINGS: Normal visualized lung bases. There is Gastrografin within the colon extending all the way to the rectum. There is no demonstrated free abdominal air. The visualized liver, spleen and kidneys are grossly normal in size and morphology. Normal soft tissue structures. Normal visualized osseous structures. RAD/Abdomen Single View IMPRESSION: No evidence of small bowel obstruction. Electronically Signed: Antwon Chino MD at 18:08 EST , Service support , CC: Alireza Kulkarni MD; Rci Mccrary MD Tester Operator Helper: Signed BEDSIDE GLUCOSE Collected: 08/12/2017 Status: F Source: [place] 11:12 AM [facility] REPOSITORY TYPE CODE TESTS RESULT OUT OF RANGE REFERENCE UNITS LAB L501.080 70-110 mg/dL Normal BEDSIDE GLU 109 Result Comment: Dr Cueto Followed MANAGEMENT OF PATIENT CARE PER NURSING PROTOCOL Performed By: #### L501.080 #### [facility] Point of Care [address] [place] [address] Observed: 08/12/2017 Status: F Source: [place] CULTURE, WOUND 8:30 AM [facility] [place] REPOSITORY Interface Comments: cleft Comments: non healing, macerated, tunneled wound, itz clef Gram Stain Gram Stain 1+ Red Blood Cells Rare White Blood Cells 1+ Gram positive cocci 2+ Gram positive rods 3+ Gram negative rods Wound Culture #1 Penicillin is the drug of choice for Beta Streptococcal infections. For Penicillin allergic patients, Erythromycin may be used. #2 Gram positive carissa suggestive of a diptheroid. Possible skin contamination, further Identification and sensitivity will be performed only by physician's request. ORGANISM 1: Streptococcus group G Amount Growth Rare ORGANISM 2: Gram positive carissa Amount Growth 1+ Performed By: #### M100.1400 #### [facility] [address] [facility] [address] MRSA WOUND DNA BY Collected: 08/12/2017 Status: F Source: [place] PCR 8:00 AM [facility] [place] REPOSITORY Order Comment: Interface Comments: THIS SPECIMEN WAS SENT TO LAB ON TYPE CODE TESTS RESULT OUT OF RANGE REFERENCE UNITS LAB L8200.1100 Negative Normal MRSA Negative RESULT LAB L8200.1150 Negative Normal SA RESULT NEGATIVE Performed By: #### L8200.1075 #### [facility] [address] [facility] [address] BEDSIDE GLUCOSE Collected: 08/12/2017 Status: F Source: [place] 6:36 AM [facility] [place] REPOSITORY TYPE CODE TESTS RESULT OUT OF REFERENCE UNITS RANGE LAB L501.080 70-110 mg/dL High BEDSIDE GLU 155 Result Comment: MANAGEMENT OF PATIENT CARE PER NURSING PROTOCOL Performed By: #### L501.080 #### [facility] Point of Care [address] [facility] [address] HISTORY AND PHYSICAL Observed: 08/12/2017 Status: F Source: [place] EXAM 5:09 AM [facility] [place] REPOSITORY [facility] Medical Records Department [address] [place] [address] [place] [address] History and Physical 08/12/17 0428 MR#: [id number] Acct: [id number] Name: KOURTNEY REZA Rep #: [id number] : 1975 41 From: Rivka Charles PCP: Ric Mccrary MD Status: ADM IN Y Location: MS3 [id number] Problem List (1) GABRIEL (obstructive sleep apnea) Status: Chronic (2) ESRD on dialysis Status: Chronic (3) Depression Status: Chronic Qualifiers: Depression Type: unspecified Qualified Code(s): F32.9 - Major depressive disorder, single episode, unspecified (4) Anxiety Status: Chronic (5) HTN (hypertension) Status: Chronic Qualifiers: Hypertension type: essential hypertension Qualified Code(s): I10 - Essential (primary) hypertension (6) Nonischemic cardiomyopathy Status: Chronic Comment: With ejection fraction 45 - 50%; with angiographically normal coronary arteries 05/2013; follows up with Dr. Underwood (7) S/P repair of PDA (patent ductus arteriosus) Status: Chronic Comment: At young age (8) Diabetes mellitus type 1 Status: Chronic Qualifiers: Diabetes mellitus complication status: with unspecified complications Qualified Code(s): E10.8 - Type 1 diabetes mellitus with unspecified complications (9) Hyperlipidemia Status: Chronic Qualifiers: (10) Obesity Status: Chronic Qualifiers: Obesity type: due to excess calories Obesity classification: adult class 1 (BMI 30 - 34.9) (11) Systolic congestive heart failure Status: Chronic Qualifiers: Congestive heart failure chronicity: chronic Qualified Code(s): I50.22 - Chronic systolic (congestive) heart failure Comment: EF 40% (12) Left ventricular diastolic dysfunction, NYHA class 2 Status: Chronic (13) Tobacco abuse Status: Chronic (14) Iron deficiency anemia due to chronic blood loss Status: Chronic Comment: Dysmenorrhea history, s/p hysterectomy. (15) Obesity (BMI 30.0-34.9) Status: Chronic (16) Gastroparesis Status: Chronic (17) ? Early small bowel obstruction Status: Acute (18) Possible Infectious Colitis Status: Acute History of Present Illness Date of Admission: 08/12/17 Chief Complaint: Abdominal pain The patient is a 41 y/o F w/ PMHx: ESRD on HD, Diabetes mellitus type II w/ Neuropathy and Gastroparesis, HTN, HLD, Tobacco use, Obesity, LV Diastolic Dysfx, Systolic CHF Hx, CAD s/p 2013 catheterization w/ mild LAD disease w/ medical therapy only who presents to the [facility] ED on 08/12/17 w/ sudden onset at 1:30 am severe mid-abdominal pain radiating toward her back with associated nausea without emesis and diarrheal episode x 1 with subjective elevated temperature and chills. In the ED work-up included T 99.5, HR 83, BP 188/76, RR 20, 98% on RA, CBC w/ WBC 6.8, Hgb 8.6, Plts 153 without L shift, CMP w/ K 3.3, Chl 97, CO2 33, BUN/Cr 24/4.36, glucose 178, lipase 229, CT A/P with possible acute inflammation of the proximal bowel and early or partial SBO, hepatomegaly and splenomegaly. In the ED patient administered NS, zofran and morphine. Past Medical History Past Medical History (Chronic Problems): Chronic Problems GABRIEL (obstructive sleep apnea) (Chronic) ESRD on dialysis (Chronic) Depression (Chronic) Anxiety (Chronic) HTN (hypertension) (Chronic) Nonischemic cardiomyopathy (Chronic) With ejection fraction 45 - 50%; with angiographically normal coronary arteries 05/2013; follows up with Dr. Underwood S/P repair of PDA (patent ductus arteriosus) (Chronic) At young age Diabetes mellitus type 1 (Chronic) Hyperlipidemia (Chronic) Obesity (Chronic) Systolic congestive heart failure (Chronic) EF 40% Left ventricular diastolic dysfunction, NYHA class 2 (Chronic) Tobacco abuse (Chronic) Iron deficiency anemia due to chronic blood loss (Chronic) Dysmenorrhea history, s/p hysterectomy. Obesity (BMI 30.0-34.9) (Chronic) Gastroparesis (Chronic) Allergies latex Allergy (Verified 08/12/17 02:03) Rash levofloxacin [From Levaquin] Adverse Reaction (Verified 08/12/17 02:03) PT CAN'T REMEMBER PT CAN'T REMEMBER metoclopramide HCl [From Reglan] Adverse Reaction (Verified 08/12/17 02:03) Nausea NSAIDS (Non-Steroidal Anti-Inflamma Adverse Reaction (Verified 08/12/17 02:03) kidney function oxycodone HCl [From Percocet] Adverse Reaction (Verified 08/12/17 02:03) HALLUCINATIONS Home Medications: Ambulatory Orders Medication Instructions Recorded Diltiazem HCl [Tiazac] 240 mg PO DAILY 07/10/15 Aspirin [Aspirin, Baby] 81 mg PO DAILY@0800 01/26/16 Surgical History: appendectomy, - - c-sections, L breast I+D for abscess, fistula placement LUE, L ankle surgery, appendectomy, DOMINGA w/ BSOO, PDA repair. Psychiatric History: Anxiety, Depression [employer] History: - - Prior dysmenorrhea, s/p hysterectomy. Lives: Spouse/ Significant Other Smoking Status: Current every day smoker Tobacco Use: Cigarettes Alcohol: None Drugs: None - *Family History Maternal History Items: Cancer, COPD, Diabetes, Hypertension, Renal Disease, Stroke Paternal History Items: Diabetes Sibling History Items: Cancer, Diabetes Review of Systems Constitutional: Reports: Chills, Fever, Weakness, Fatigue. Denies: Weight Change HEENT: Denies: Head Aches, Sinus Congestion, Sinus Drainage Cardiovascular: Denies: Chest Pain, Palpitations Respiratory: Denies: Cough, Shortness of breath at rest, Sputum production Gastrointestinal: Reports: Abdominal Pain, Diarrhea, Nausea. Denies: Vomiting Genitourinary: Denies: Dysuria Musculoskeletal: Denies: Joint Pain, Joint Tenderness Skin: Denies: Rash, Wounds Neurological: Denies: Numbness, Tingling, Focal weakness Psychiatric: Reports: Anxiety, Depression. Denies: Homicidal Ideations, Suicidal Ideations Hematologic/ Lymphatic: Reports: Anemia. Denies: Easy Bruising, Easy Bleeding VTE Information - Inpt Only VTE Present on Admission: No VTE Mechan Device Prophylaxis: SCD's VTE Pharm Prophylaxis ordered?: Yes Patient Problems: Active and Suspected Problems ? Early small bowel obstruction (Acute) Possible Infectious Colitis (Acute) Abdominal pain (Acute) Inflammation of small intestine (Acute) Subjective: Laying on her side in the ED bed, uncomfortable appearing, grimacing with movement to lay on back. Objective: Physical Examination: General: awake, alert, oriented x 3 and cooperative, laying in the ED bed in no apparent distress. Skin: normal color, turgor, no icterus, cyanosis. HEENT: AT/NC, EOMI, PERRLA, mildly dry MM, no carotid bruits or JVD noted. Lungs: CTA bilaterally, moderate effort, moderate decrease BL bases, no rales, ronchi or wheezing. Heart: Regular rate and rhythm; no gallop, rub audible. Abdomen: soft, obese, mildly distended, hyperactive BS, generalized mild TTP, more periumbilical discomfort, difficult to assess HSM given habitus (noted MH, SM on imaging). Extremities: no cyanosis, clubbing, or edema. Neurological: patient awake, alert, oriented x 3; cognitive function intact; pupils equally reactive to light and accomodation; cranial nerves II-XII grossly normal, moving all 4 extremities, no focal deficits, strength severely globally decreased. Psychiatric: affect appears fatigued, no acute evidence of depressive or anxiety feelings. - Physical Exam Vital Signs Temp Pulse Resp BP Pulse Ox 99.5 F H 83 20 H 188/76 H 98 08/12/17 02:00 08/12/17 02:00 08/12/17 02:00 08/12/17 02:00 08/12/17 02:00 Oxygen Delivery Method Room Air Weight: 206 lb 5.643 oz Body Mass Index (BMI) 33.3 Finger Stick Blood Glucose 351 Laboratory Tests Past 24 Hrs WBC 6.8 RBC 2.70 L Hgb 8.6 L Hct 26.7 L MCV 98.9 MCH 31.9 MCHC 32.2 Assessment/Plan Active and Suspected Problems ? Early small bowel obstruction (Acute) Possible Infectious Colitis (Acute) Abdominal pain (Acute) Inflammation of small intestine (Acute) The patient is a 41 y/o F w/ PMHx: ESRD on HD, Diabetes mellitus type II w/ Neuropathy and Gastroparesis, HTN, HLD, Tobacco use, Obesity, LV Diastolic Dysfx, Systolic CHF Hx, CAD s/p 2013 catheterization w/ mild LAD disease w/ medical therapy only who presents to the [facility] ED on 08/12/17 w/ sudden onset at 1:30 am severe mid-abdominal pain radiating toward her back with associated nausea without emesis and diarrheal episode x 1 with subjective elevated temperature and chills. (1) Abdominal pain, nausea without emesis, diarrhea x 1 w/ Proximal Bowel Inflammation, Possible Infectious Colitis w/ ? early SBO: In the ED work- up included CT A/P with possible acute inflammation of the proximal bowel and early or partial SBO, hepatomegaly and splenomegaly, CBC w/o marked WBC elevation of shift, AF in the ED. Unclear specific etiology. Will admit to MS, maintain on IVFs, maintain on zosyn, defer NGT pending discussion with Surgery given atypical presentation, strict I AND Os, IV pain/anti- emetics PRN, serial KUB as needed to montior bowel function, Famotidine IV, maintain NPO on bowel rest. General surgery, Dr. Zhang consulted, pending. (2) Hypertension: Holding oral regimen, PRN hydralazine, lopressor. (3) AOCD, Fe deficiency anemia: Admission Hgb 8.6, previously was on Fe supplementation. (4) ESRD on HD: Consult Nephrology, Dr. Juan somers, continue with routine HD regimen. (5) Chronic systolic CHF, CM, Diastolic DysFx, CAD: Noted history, EF 45-50% w/ 05/2013 normal cardiac catheterization per Dr. Underwood, holding oral regimen asa, BB, ACEI. Not on statin. HD as noted. IVFs cautiously to avoid overload. (6) Hyperlipidemia: Not on statin. (7) Diabetes mellitus type II w/ Neuropathy, Gastroparesis: Continue home long-acting insulin regimen, hold short-acting scheduled regimen, NPO status given acute presentation, accu checks w/ ISS. (8) Depression and Anxiety: Holding home xaxax regimen. Previously was on prozac in the past. PRN IV ativan given NPO status. (9) Tobacco Abuse: Encouraged cessation, inpatient consultation per RT, NR if desired. (10) Obesity: Weight loss and lifestyle changes encouraged. (11) DVT prophylaxis: SCDs, heparin. Code Visit Inpatient E AND M: [id number] Init Hosp L3 08/12/17 0509 <Electronically signed by Rivka Charles > Date Rivka Charles Cosigner Signature: Date (if applicable) CC: Rivka Charles; Ric Mccrary MD Signed EMERGENCY DEPARTMENT Observed: 08/12/2017 Status: F Source: [place] SUMMARY 4:55 AM [facility] [place] REPOSITORY [facility] Medical Records Department [address] [facility] [place] [address] Emergency Department Summary 08/12/17 0444 MR#: [id number] Acct: [id number] Name: KOURTNEY REZA Rep #: [id number] : 1975 41 From: Jeronimo Ramos PCP: Ric Mccrary MD Status: REG ER - ER Visit Summary Date of Service: 08/12/17 Chief Complaint: Abdominal pain History of Present Illness: The patient is a 41 F sudden abdominal pain awakening her at 120 in the morning. Pain mid abdomen radiates to her back. No nausea or vomiting. States had one loose stools after the pain. No blood in the stools. No previous similar symptoms. No fevers. States had chills. History of end-stage renal disease on dialysis Fridays, had full dialysis yesterday. History of appendectomy, , umbilical hernia repair. Appendectomy was done 2 years ago in [place]. Pain is sharp in nature 8 out of 10. Physical Examination: General: Alert and oriented 3, no acute distress HEENT: Normocephalic, atraumatic. Moist mucosa membranes Neck: supple, nontender. Cardiovascular: Regular rate and rhythm, no murmurs Respiratory: Normal breath sounds, symmetric, no distress Abdomen: Soft, mid abdominal tenderness without guarding or rebound., nondistended. Normal bowel sounds Extremities: Nontender, no edema, pulses intact 4. Left upper extremity fistula with a positive thrill Neuro: no focal neurological deficits. Test Results: Labs white count 6.8, hemoglobin 8.6. Potassium 3.3. Creatinine 4.36. Lipase 229. Liver enzymes normal. CT scan abdomen pelvis inflammation proximal small bowel, possible early partial small bowel obstruction Emergency Department Course and Treatment: Patient presents with discomfort, nonsurgical abdomen. Abdominal labs noted chronic changes of hemoglobin. Creatinine 4.36. Potassium 3.3. She did finish dialysis yesterday. She given morphine fluids for symptom control. CT scan per radiology notes inflammation proximal small bowel and possible early partial small bowel obstruction. Spoke with Dr. Charles, will place on Zosyn IV for the inflammation for coverage. Request I talked to surgery for inpatient management. I spoke with Dr. Dill, who will follow. He did review the images was not impressed with obstruction at this time. He states symptoms persist, can obtain oral contrast scan for evaluation if there would be any signs of small bowel obstruction. Treatment Plan: [] Disposition: Admission Impression: 1. Abdominal pain 2. Small small small bowel inflammation 3. Possible early small bowel obstruction 4. Anemia 5. End-stage renal disease on dialysis This note was generated with [employer] dictation software. It may contain incorrect words, spelling, and punctuation that were not noted in review of the chart prior to signing ED Disposition - Plan for ED Patient: Disposition: Acute Care Hospital [facility] Chief Complaint: Back Diagnosis: Abdominal pain, Inflammation of small intestine Referrals: Ric Mccrary MD [Primary Care Provider] - What to do if you have Problems For any increased pain, shortness of breath, bleeding, nausea or vomiting, chest pain, or any unexpected problems, contact your Primary Care Provider. Call [facility] ([phone]) or report to the closest Emergency Room. Call 911 if necessary. 08/12/17 0455 <Electronically signed by Jeronimo Ramos> Date Jeronimo Ramos Cosigner Signature (If Indicated): Date CC: Ric Mccrary MD CBC W/DIFF, AUTOMATED Collected: 08/12/2017 Status: F Source: [facility] 2:35 AM [facility] REPOSITORY TYPE CODE TESTS RESULT OUT OF RANGE REFERENCE UNITS LAB L100.1000 4.4-11.0 K/mm3 Normal WBC 6.8 LAB L100.1200 4.2-5.4 M/mm3 Low RBC 2.70 LAB L100.1300 12.0-15.0 g/dl Low HGB 8.6 LAB L100.1400 37-47 % Low HCT 26.7 LAB L100.1500 81-99 fL Normal MCV 98.9 LAB L100.1600 27.0-32.0 pg Normal MCH 31.9 LAB L100.1700 32-36 g/gl Normal MCHC 32.2 LAB L100.1810 11.6-14.6 % High RDW CV 15.1 LAB L100.1820 35.1-43.9 fl High RDW SD 53.0 LAB L100.1900 150-450 K/mm3 Normal PLT 153 LAB L100.2000 6.2-12.0 fl Normal MPV 8.3 LAB L100.2100 47-70 % High NEUT% 79.1 LAB L100.2200 19-41 % Low LY% 12.9 LAB L100.2300 0-10 % Normal MONO% 4.6 LAB L100.2400 0-5 % Normal EO% 3.0 LAB L100.2500 0-1 % Normal BASO% 0.1 LAB L100.2550 0.0-0.9 % Normal IM GRAN % 0.300 Result Comment: IG% - Immature Granulocytes (promyelocytes, myelocytes and metamyelocytes) > 1% indicates that a LEFT SHIFT is Present. LAB L100.2620 2.0-7.7 X10 3/uL Normal Absolute Neut 5.4 LAB L100.2720 0.83-4.51 X10 3/ul Normal Absolute Lymph 0.87 Performed By: #### L100.0100 #### [facility] [address] [place], [address] COMPREHENSIVE METABOLIC Collected: 08/12/2017 Status: F Source: [facility] 2:35 AM [facility] REPOSITORY TYPE CODE TESTS RESULT OUT OF RANGE REFERENCE UNITS LAB L501.0100 70-110 mg/dL High GLU 178 Result Comment: Fasting Glucose result greater than or equal to 126 mg/dL suggests DIABETES MELLITUS per A.D.A. criteria. LAB L501.1000 7-18 mg/dL High BUN 24 LAB L501.1100 0.55-1.02 mg/dL High CREAT,SERUM 4.36 Result Comment: The validity of the calculated GFR AND GFRAA in patients over 70 years has not been determined. Clinical correlation is essential. LAB L501.1110 >60 mL/min Low EST GFR 12 Result Comment: Non- GFR Calc LAB L501.1115 >60 mL/min Low EST GFR - AA 14 Result Comment: GFR Calc LAB L501.1255 ml/min Normal Estimated CRCL 15.57 LAB L501.1300 10-20 RATIO Low BUN/CRE 5.5 LAB L501.1500 6.4-8. g/dL Normal 2 T PROT 7.3 LAB L501.1800 3.4-5. g/dL Low 0 ALB 2.7 Result Comment: Please note revised Albumin AND Globulin reference range effective 2017. LAB L501.1950 2.2-4.2 g/dL High GLOB 4.6 LAB L501.2000 0.9-2.4 RATIO Low A/G 0.6 LAB L501.2200 8.5-10.1 mg/dL Low CA 7.7 LAB L501.4100 15-37 U/L Low AST 12 LAB L501.4305 45-117 U/L Normal ALK P 93 LAB L501.4405 12-78 U/L Normal ALT 22 LAB L501.4600 0.20-1.00 mg/dL Normal T BILI 0.30 LAB L501.5300 136-145 mmol/L Normal NA 140 LAB L501.5600 3.5-5.1 mmol/L Low K 3.3 LAB L501.5900 98-107 mmol/L Low CL 97 LAB L501.6100 21.0-32.0 mmol/L High CO2 33.0 LAB L501.6200 5-15 Normal GAP 10 Performed By: #### L500.4050, L501.2450 #### [facility] [address] [place], [address] LIPASE Collected: 08/12/2017 Status: F Source: [place] 2:35 AM [facility] REPOSITORY TYPE CODE TESTS RESULT OUT OF RANGE REFERENCE UNITS LAB L501.2450 73-393 U/L Normal LIPASE 229 Performed By: #### L500.4050, L501.2450 #### [facility] [address] [place], [address] ABDOMEN/PELVIS WITHOUT Observed: 08/12/2017 Status: F Source: [facility] CONT 2:24 AM [facility] REPOSITORY [facility] Imaging Services [address] [place] [address] Abdomen/Pelvis without Cont MR#: [id number] Acct: [id number] Name: KOURTNEY REZA Rep #: [id number] : 1975 F 41 From: Val Solitario MD PCP: Ric Mccrary MD Status: REG ER Study: Abdomen/Pelvis without Cont Date of Exam: 08/12/17 Exam# [id number] Ordering Dr: Jeronimo Pelayo DO STUDY: CT ABDOMEN AND PELVIS WITHOUT CONTRAST REASON FOR EXAM: Female, 41 years old. Back pain starting in the periumbilical region. Patient has end-stage renal disease and is on dialysis. RADIATION DOSAGE (If Supplied By Facility): CTDIvol = ( 13.23 ) mGy, DLP = ( 955.46 ) mGycm TECHNIQUE: Transaxial images were obtained from the dome of the diaphragm to the symphysis pubis without oral contrast, and without intravenous contrast. Sagittal and coronal images were reconstructed. Individualized dose optimization techniques were used for this CT. COMPARISON: CT the abdomen and pelvis dated August 06, 2016. FINDINGS: The visualized lung bases are unremarkable. The visualized portions of the heart are within normal limits. There is hepatomegaly with diffuse hepatic enlargement. Liver measures 19.8 cm in greatest cephalocaudal dimension. Normal gallbladder and extrahepatic biliary system. There is mild splenomegaly. There are scattered calcified granulomas. Normal pancreas. There is a left adrenal nodule measuring approximately 3.3 2.3 x 2.0 cm. The right adrenal gland has a normal appearance. There is mild cortical atrophy of the right kidney, consistent with chronic medical renal disease. Left kidney has normal size. There are vascular calcifications in both renal latrell. There is no evidence for hydronephrosis, hydroureter or radiopaque ureteral calculus. Normal visualized stomach. There is mild dilatation of the small bowel with maximum transverse dimension of approximately 3.7 cm. There may be some thickening of the walton of the small bowel as well. There appears to be a transition within the mid small bowel. The colon is not dilated. Stool is visible throughout the colon with scattered colonic diverticula There are surgical clips in the region of the appendix consistent with a prior appendectomy. There is patchy atherosclerotic calcification of the abdominal aorta, without a demonstrated aneurysm. There extensive vascular calcifications of the branches of the superior mesenteric artery and celiac axis. Normal inferior vena cava. Normal retroperitoneum. Normal urinary bladder. There is absence of the uterus consistent with a prior hysterectomy. There is an umbilical hernia containing fat. There are diffuse degenerative changes of the visualized lumbar spine. There is mild curvature of the thoracic and lumbar spine with convexity towards the right. CT/Abdomen/Pelvis without Cont IMPRESSION: 1. CT findings suggest possible acute inflammation of the proximal small bowel and early or partial small bowel obstruction. Ileus is thought less likely. 2. Hepatomegaly and splenomegaly. Electronically Signed: Val Solitario MD at 4:16 EST , Service support , CC: Jeronimo Pelayo; Ric Mccrary MD Tester Operator Helper: Signed ALLERGIES ALLERGIES DATE TYPE / NAME / CODE REACTION SEVERITY SOURCE CODE 08/09/2018 Drug oxycodone hallucinations Unknown [place] Allergy/4 HCl/I477095047(RXNO Community [id number] SNOMED Repository CT) 08/09/2018 Drug metoclopramide Nausea Unknown [place] Allergy/4 HCl/H343294230(RXNO Community 10144783( [facility] SNOMED Repository CT) 08/09/2018 Drug NSAIDS kidney function Unknown [place] Allergy/4 (Non-Steroidal Community 90152609( [facility] 08/09/2018 Drug prochlorperazine/F0 Unknown Unknown [place] Allergy/4 70468838(RXNORM) Community 21754004( [facility] SNOMED Repository CT) 08/09/2018 Drug levofloxacin/D18862 PT CAN'T REMEMBER Unknown [place] Allergy/4 6299(RXNORM) [facility]40[facility] 08/09/2018 Drug latex/V315262992(RX Rash Unknown [place] Allergy/4 NORM) [facility]2754928[facility] 05/12/2017 Drug NSAIDS CONTRAINDICA [place] Class/419 (NON-STEROIDAL Clinic Main 324920( ANTI-INFLAMMATORY [place] OMED CT) DRUG) Repository 10/28/2013 DRUG/4195 OXYCODONE-ACETAMINO Mental Chg Schafer 43926(SNO PHEN Clinic Main MED CT) [place] Repository 07/03/2013 DRUG METOCLOPRAMIDE Vomiting [address] Main 21831793( [place] SNOMED Repository CT) 01/20/2006 DRUG LATEX RASH [address] Main 31728341( [place] SNOMED Repository CT) ENCOUNTERS ENCOUNTERS ADMIT/DISCHARGE ACCOUNT NUMBER ADMITTING ENCOUNTER LOCATION SOURCE CLASS 08/09/2018/08/11/19 [id number] [place], Inpatient [place] [address] [place] Encounter [facility] ding:[id number] Repository : XY157Cog: 1 08/09/2018 [id number] [place], Ambulatory BMSBuilding: [place] BMS.[facility] Repository 08/09/2018 [id number] [place], Ambulatory BMSBuilding: [place] BMS.[facility] Repository 08/09/2018 [id number] [place], Ambulatory BMSBuilding: [place] BMS.[facility] Repository 08/02/2018 [id number] Ambulatory BMSBuilding: [place] BMS.[facility] Repository 07/18/2018/07/18/20 [id number] Emergency [place] 18 [facility] ding:ED Repository 07/02/2018 [id number] White, Ambulatory BMSBuilding: [place] BMS.[facility] Repository 07/02/2018 [id number] White, Ambulatory BMSBuilding: [place] BMS.[facility] Repository 07/02/2018/07/03/20 [id number] White, Inpatient [place] 18 [place] Encounter [facility] ding:PCURoom Repository : [id number]: 1 07/01/2018 [id number] White, Ambulatory BMSBuilding: [place]ka BMS.[facility] Repository 07/01/2018 [id number] White, Ambulatory BMSBuilding: [place]ka BMS.CF.[facility] Repository 07/01/2018/07/01/20 [id number] Emergency BBuilding:[place] [address] [address] Repository 07/01/2018 [id number] Ambulatory BMSBuilding: [place] [facility] Repository 06/29/2018/06/29/20 [id number] Emergency [place] 18 [facility] ding:ED Repository 06/18/2018/06/18/20 [id number] Emergency BBuilding:ER Shar[place] 18 [facility] Repository 06/03/2018/06/04/20 [id number] Emergency BBuilding:ER Sharif 18 [facility] Repository 05/29/2018/05/29/20 [id number] Emergency [place] 18 [facility] ding:ED Repository 05/26/2018/05/26/20 [id number] Emergency [place] 18 [facility] ding:ED Repository 05/16/2018/05/17/20 [id number] Emergency BBuilding:ER Sharif [address] [place] [address] Repository 05/12/2018/05/16/20 [id number] Tereletsky, Inpatient [place] 18 [facility] ding:PCURoom Repository : [id number]: 1 05/12/2018 [id number] Tereletsky, Ambulatory BMSBuilding: [place] N[place] BMS.[facility] Repository 05/12/2018 [id number] Tereletsky, Ambulatory BMSBuilding: [place] N[place]un BMS.[facility] Repository 05/12/2018 [id number] Tereletsky, Ambulatory BMSBuilding: [place] N[place]un BMS.[facility] Repository 05/12/2018 [id number] Tereletsky, Ambulatory BMSBuilding: [place]un BMS.[facility] Repository 05/12/2018 [id number] Tereletsky, Ambulatory BMSBuilding: [place] BMS.[facility] Repository 05/12/2018 [id number] Tereletsky, Ambulatory BMSBuilding: [place]un BMS.[facility] Repository 05/12/2018 [id number] Tereletsky, Ambulatory BMSBuilding: [place] N[place] BMS.[facility] Repository 05/12/2018 [id number] Tereletsky, Ambulatory BMSBuilding: [place] BMS.[facility] Repository 05/12/2018 [id number] Tereletsky, Ambulatory BMSBuilding: [place] BMS.[facility] Repository 05/02/2018/05/02/20 [id number] Emergency [place] ding:ED Repository 05/01/2018/05/01/20 [id number] Emergency BBuilding:ER [address] Repository 04/17/2018/04/17/20 [id number] [place], Inpatient [place] 18 [facility] ding:PCURoom Repository : [id number]: 1 04/17/2018/04/17/20 [id number] Ambulatory BMSBuilding: [place] 18 [facility] Repository 04/17/2018 [id number] Anna, Ambulatory BMSBuilding: [place] Davis [facility] Repository 04/16/2018/04/17/20 [id number] Emergency BBuilding:ER [address] Repository 04/16/2018/04/17/20 [id number] Emergency BBuilding:ER [address] Repository 04/13/2018/04/13/20 [id number] Emergency BBuilding:ER [address] Repository 04/08/2018/04/08/20 [id number] Emergency [address] ding:ED Repository 04/03/2018/04/03/20 [id number] Emergency BBuilding:ER [address] Repository 03/25/2018/03/25/20 [id number] Emergency [address] ding:ED Repository 03/17/2018/03/17/20 [id number] Emergency [address] ding:ED Repository 03/14/2018/03/14/20 [id number] Ambulatory BMSBuilding: [place] 18 [facility] Repository 03/12/2018/03/12/20 [id number] Emergency [address] ding:ED Repository 03/08/2018 [id number] Ambulatory [facility] ding:LABSPEC Repository 03/06/2018/03/06/20 [id number] Emergency [address] ding:ED Repository 03/05/2018/03/06/20 [id number] Ambulatory [address] Repository 02/28/2018/03/01/20 [id number] Adrienne Lucas Ambulatory [address] ding:ICURoom Repository : PWG77Hlv: 1 02/28/2018 [id number] eRna Lucasa Ambulatory BMSBuilding: [place] Jesenia BMS.[facility] Repository 02/26/2018 [id number] Ambulatory [facility] ding: Repository 02/24/2018/02/28/20 [id number] Abel, Inpatient [place] ding:ICURoom Repository : LQA62Ydp: 1 02/24/2018 [id number] Abel Ambulatory BMSBuilding: [place] Roberto BMS.[facility] Repository 02/24/2018 [id number] Abel Ambulatory BMSBuilding: [place] Roberto BMS.CF.[facility] Repository 02/24/2018 [id number] Abel Ambulatory BMSBuilding: [place] Roberto BMS.[facility] Repository 02/24/2018 [id number] Abel Ambulatory BMSBuilding: [place] Roberto BMS.CF.[facility] Repository 02/24/2018 [id number] Abel Ambulatory BMSBuilding: [place] Roberto BMS.[facility] Repository 02/24/2018/02/28/20 [id number] Ambulatory BMSBuilding: [place] [address] [place] [address] Repository 02/24/2018 [id number] Ambulatory BMSBuilding: [place] BMS.[facility] Repository 02/20/2018 [id number] Ambulatory [facility] ding:WC Repository 02/19/2018/02/20/20 [id number] Emergency BBuilding:ER Sharif [address] [place] [address] Repository 02/09/2018 [id number] Ambulatory BMSBuilding: [place] [facility] Repository 02/08/2018/02/10/20 [id number] Sophieeletsky, Ambulatory [place] 18 [facility] ding:PCURoom Repository : [id number]: 1 02/08/2018 [id number] Sophieeletsky, Ambulatory BMSBuilding: [place] Nahun BMS.[facility] Repository 02/08/2018 [id number] Tereletsky, Ambulatory BMSBuilding: [place] Nahun BMS.[facility] Repository 02/08/2018/02/10/20 [id number] Ambulatory BMSBuilding: [place] 18 [facility] Repository 02/05/2018/02/06/20 [id number] Emergency BBuilding:ER [address] Repository 02/03/2018/02/04/20 [id number] Emergency BBuilding:ER [address] Repository 01/29/2018/02/21/20 [id number] Ambulatory [place] ding: Repository 01/29/2018 [id number] Ambulatory BMSBuilding: [place] BMS.CF.[facility] Repository 01/27/2018/01/28/20 [id number] Emergency [address] ding:ED Repository 01/22/2018/01/23/20 [id number] Emergency [address] ding:ED Repository 01/22/2018/01/23/20 [id number] Emergency BBuilding:ER [address] Repository 01/19/2018/01/26/20 [id number] Ambulatory [address] Repository 01/17/2018/01/18/20 [id number] Emergency [place] ding:ED Repository 01/11/2018/01/13/20 [id number] White, Ambulatory [place] Ciaran [address] [place] [address] ding:PCURoom Repository : [id number]: 1 01/11/2018 [id number] White, Ambulatory BMSBuilding: [place] Riv[place] BMS.[facility] Repository 01/11/2018 [id number] White, Ambulatory BMSBuilding: [place] Rivka BMS.[facility] Repository 01/08/2018/01/09/20 [id number] Emergency BBuilding:ER Sharif[address] Repository 01/05/2018/01/06/20 [id number] Emergency BBuilding:ER Sharif[address] Repository 01/01/2018/01/21/20 [id number] Ambulatory [address] ding:WC Repository 12/30/2017/01/01/20 [id number] Emergency BBuilding:ER Sharif[address] Repository 12/28/2017/12/29/19 [id number] Emergency [address] ding:ED Repository 12/24/2017/12/25/19 [id number] Emergency [address] ding:ED Repository 12/18/2017/12/19/19 [id number] Emergency [address] ding:ED Repository 12/04/2017/12/05/19 [id number] Ambulatory [address] Repository 12/04/2017/12/07/19 [id number] Ambulatory [address] Repository 12/04/2017/12/22/19 [id number] Ambulatory [address] ding: Repository 12/04/2017 [id number] Ambulatory BMSBuilding: [place] BMS..[facility] Repository 11/21/2017 [id number] Ambulatory BMSBuilding: [place] BMS.CF.[facility] Repository 11/14/2017/11/17/19 [id number] [facility], Inpatient [place] 18 [facility] ding:PCURoom Repository : [id number]: 1 11/14/2017 [id number] [facility], Ambulatory BMSBuilding: [place] Alireza BMS.[facility] Repository 11/14/2017 [id number] [facility], Ambulatory BMSBuilding: [place] [facility] 11/14/2017 [id number] [facility], Ambulatory BMSBuilding: [place] Alireza BMS.CF.[facility] Repository 11/14/2017/11/17/19 [id number] Ambulatory BMSBuilding: [place] 18 [facility] Repository 11/14/2017/11/17/19 [id number] Ambulatory BMSBuilding: [place] 18 [facility] Repository 11/14/2017 [id number] Shad, Ambulatory BMSBuilding: [place] Alireza BMS.[facility] Repository 11/14/2017/11/15/19 [id number] Emergency BBuilding:ER [address] Repository 11/12/2017/11/13/19 [id number] Emergency BBuilding:ER [address] Repository 11/05/2017/11/09/19 [id number] Imamura, Inpatient [place] 18 [place] Encounter [facility] ding:PCURoom Repository : [id number]: 1 11/05/2017 [id number] Imamura, Ambulatory BMSBuilding: [place] Yoichi BMS.[facility] Repository 11/05/2017 [id number] Imamura, Ambulatory BMSBuilding: [place] Yoichi BMS.[facility] Repository 11/05/2017 [id number] Imamura, Ambulatory BMSBuilding: [place] Yoichi BMS.[facility] Repository 11/05/2017 [id number] Imamura, Ambulatory BMSBuilding: [place] Yoichi BMS.[facility] Repository 11/02/2017/11/07/19 [id number] Ambulatory [address] Repository 11/02/2017 [id number] Ambulatory [facility] Repository 11/02/2017 [id number] Ambulatory [facility] Repository 11/02/2017/11/04/19 [id number] Ambulatory [address] Repository 10/31/2017/11/01/19 [id number] Emergency [place] 18 [facility] ding:ED Repository 10/23/2017/10/27/19 [id number] Loreleiah, Inpatient [place] 18 Ghasem Encounter [facility] ding:[id number] Repository : [id number]: 1 10/23/2017 [id number] Loreleiah, Ambulatory BMSBuilding: [place] Ghasem BMS.[facility] Repository 10/23/2017 [id number] [facility], Ambulatory BMSBuilding: [place] Ghasem BMS.[facility] Repository 10/23/2017 [id number] [facility], Ambulatory BMSBuilding: [place] Ghasem BMS.[facility] Repository 10/23/2017 [id number] [facility], Ambulatory BMSBuilding: [place] Ghasem BMS.[facility] Repository 09/05/2017/09/24/19 [id number] [address] Rep[address] ng:AC(6M )Room: 6M696 09/02/2017/09/05/19 [id number] Abel, Inpatient [place] Ciar[place] 18 Roberto Encounter [facility] ding:PCURoom Repository : [id number]: 1 09/02/2017 [id number] Abel, Ambulatory BMSBuilding: [place] Roberto BMS.[facility] Repository 09/02/2017 [id number] Abel Ambulatory BMSBuilding: [place] Roberto BMS.CF.[facility] Repository 09/02/2017 [id number] Abel Ambulatory BMSBuilding: [place] Roberto BMS.[facility] Repository 09/02/2017 [id number] Abel Ambulatory BMSBuilding: [place] Roberto BMS.[facility] Repository 09/02/2017 [id number] Abel Ambulatory BMSBuilding: [place] Roberto BMS.[facility] Repository 08/29/2017/08/29/19 [id number] Ambulatory [address] Repository 08/12/2017/08/21/19 [id number] [place], Inpatient [place] 18 [place] Encounter [facility] ding:[id number] Repository : VR211Ydv: 1 PAYERS PAYERS ENCOUNTER GUARANTOR PAYER SUBSCRIBER SOURCE 08/09/2018 KOURTNEY REZA197 Primary KOURTNEY JACOB Insurance:MEDICARE TAYLORDOB: [place] PART A [facility] [id number] Hospital [address]Dan: [phone]) Number: [facility] [phone] () [id number] Date:2018-08-09 08/09/2018 Secondary KOURTNEY A [place] Insurance:MEDICAIDPol TAYLORDOB: [facility] icy Number: [id number] Hospital [id number] Repository Date:2018-08-09 08/09/2018 Tertiary NOT GIVENUNK [place] Insurance:SELF PAY [facility] Number: Effective Repository Date:2018-08-09 08/09/2018 KOURTNEY SORENSEN Primary KOURTNEY A [place] Insurance:MEDICARE TAYLORDOB: [place] PART A [facility] [id number] Hospital [address]Jce: (330) Number: Repository [phone] () [id number] Date:2018-08-09 08/09/2018 Secondary KOURTNEY A [place] Insurance:MEDICAIDPol TAYLORDOB: [facility] icy Number: [id number] Hospital [id number] Repository Date:2018-08-09 08/09/2018 Tertiary NOT GIVENUNK [place] Insurance:SELF PAY [facility]: Effective Repository Date:2018-08-09 08/09/2018 KOURTNEY SORENSEN Primary KOURTNEY A [place] Insurance:MEDICARE TAYLORDOB: [place] PART A [facility] [id number] Hospital [id number]: (330) Number: Repository [phone] () [id number] Date:2018-08-09 08/09/2018 Secondary KOURTNEY A [place] Insurance:MEDICAIDPol TAYLORDOB: [facility] icy Number: [id number] Hospital [id number] Repository Date:2018-08-09 08/09/2018 Tertiary NOT GIVENUNK [place] Insurance:SELF PAY [facility] Number: Effective Repository Date:2018-08-09 08/09/2018 KOURTNEY SORENSEN Primary KOURTNEY A [place] Insurance:MEDICARE TAYLORDOB: [place] PART A [facility] [id number] Hospital [address]Llu: (330) Number: Repository [phone] () [id number] Date:2018-08-09 08/09/2018 Secondary KOURTNEY A [place] Insurance:MEDICAIDPol TAYLORDOB: [facility] icy Number: [id number] Hospital [id number] Repository Date:2018-08-09 08/09/2018 Tertiary NOT GIVENUNK [place] Insurance:SELF PAY [facility] [facility] Effective Repository Date:2018-08-09 08/02/2018 KOURTNEY SORENSEN Primary KOURTNEY A Ciaran [place] Insurance:MEDICARE [place]AY[place]OB: [place] PART A [facility] [id number] Hospital 94909Ccv: (330) Number: Repository [phone] () [id number] Date:2018-07-03 08/02/2018 Secondary KOURTNEY A Ciaran Insurance:MEDICAIDPol TAYLORDOB: [facility] icy Number: [id number] Hospital [id number] Repository Date:2018-07-03 08/02/2018 Tertiary NOT GIVENUNK [place] Insurance:SELF PAY [facility] Number: Effective Repository Date:2018-07-03 07/18/2018 KOURTNEY SORENSEN Primary KOURTNEY A Ciaran [place] Insurance:MEDICARE TAY[place]ORDOB: [place] [facility] [id number] Hospital 19463Xiz: (330) Number: Repository [phone] () [id number] Date:2018-07-18 07/18/2018 Secondary KOURTNEY A [place] Insurance:MEDICAIDPol TAYLORDOB: [facility] icy Number: [id number] Hospital [id number] Repository Date:2018-07-18 07/18/2018 Tertiary NOT GIVENUNK [place] Insurance:SELF PAY [facility] Number: Effective Repository Date:2018-07-18 07/02/2018 KOURTNEY SORENSEN Primary KOURTNEY A [place] Insurance:MEDICARE TAY[place]ORDOB: [place] [facility] [id number] Hospital 20631Mlt: (330) Number: Repository [phone] () [id number] Date:2018-07-01 07/02/2018 Secondary KOURTNEY A [place] Insurance:MEDICAIDPol TAYLORDOB: [facility] icy Number: [id number] Hospital [id number] Repository Date:2018-07-01 07/02/2018 Tertiary NOT GIVENUNK [place] Insurance:SELF PAY [facility] Number: Effective Repository Date:2018-07-02 07/02/2018 KOURTNEY SORENSEN Primary KOURTNEY A [place] Insurance:MEDICARE TAY[place]ORDOB: [place] [facility] [id number] Hospital 63456Ksm: (330) Number: Repository [phone] () [id number] Date:2018-07-01 07/02/2018 Secondary KOURTNEY A [place] Insurance:MEDICAIDPol TAYLORDOB: [facility] icy Number: [id number] Hospital [id number] Repository Date:2018-07-01 07/02/2018 Tertiary NOT GIVENUNK [place] Insurance:SELF PAY [facility] Number: Effective Repository Date:2018-07-02 07/02/2018 KOURTNEY SORENSEN Primary KOURTNEY A [place] Insurance:MEDICARE [place]AY[place]OB: [place] [facility] [id number] Hospital 85242Lql: (330) Number: Repository [phone] () [id number] Date:2018-07-01 07/02/2018 Secondary KOURTNEY A [place] Insurance:MEDICAIDPol TAYLORDOB: [facility] ic Number: [id number] Hospital [id number] Repository Date:2018-07-01 07/02/2018 Tertiary NOT GIVENUNK [place] Insurance:SELF PAY [facility] Number: Effective Repository Date:2018-07-01 07/01/2018 KOURTNEY SORENSEN Primary KOURTNEY A Ciaran [place] Insurance:MEDICARE TAY[place]ORDOB: [place] [facility] [id number] Hospital 36932Ayh: (330) Number: Repository [phone] () [id number] Date:2018-07-01 07/01/2018 Secondary KOURTNEY A Ciar[place] Insurance:MEDICAIDPol TAYLORDOB: [facility] ic Number: [id number] Hospital [id number] Repository Date:2018-07-01 07/01/2018 Tertiary NOT GIVENUNK [place] Insurance:SELF PAY [facility] Number: Effective Repository Date:2018-07-01 07/01/2018 KOURTNEY A [id number] Primary KOURTNEY A Ciaran [place] Insurance:MEDICARE TAY[place]ORDOB: [place] [facility] [id number] Hospital 19925Hqt: (330) Number: Repository [phone] () [id number] Date:2018-07-01 07/01/2018 Secondary KOURTNEY A [place] Insurance:MEDICAIDPol TAYLORDOB: [facility] Number: [id number] Hospital [id number] Repository Date:2018-07-01 07/01/2018 Tertiary NOT GIVENUNK [place] Insurance:SELF PAY [facility] Number: Effective Repository Date:2018-07-01 07/01/2018 KOURTNEY A Primary KOURTNEY A [facility] TAYLORDOB: Insurance:MEDICARE TAYLORDOB: [facility] PART B [facility] [id number] [facility]ository [facility] Number: [address] [place], [place] [id number] [place] [address]~MELISSATAYLOR Date:2018-07-01 08239Ssf: ([phone]) 279@[facility].COMTel: [id number] [phone] () Name:PCGS ()Tel: (000) Administrators LLCPO 000-0000 (WP) [address] [place] [address] 65319WL: 07/01/2018 Secondary KOURTNEY A [facility] Insurance:MEDICAID TAYLORB: [facility] [id number] Repository Number: 7 [facility] [id number] [place] Date:2018-07-01 69868Llx: ([phone]) [id number] 22 Name:[address] ()Tel: (000) [address], [place] 000-0000 (WP) [id number]: 07/01/2018 KOURTNEY A [id number] Primary KOURTNEY A Ciaran [place] Insurance:MEDICARE TAYLORDOB: [place] PART [place] [facility] [id number] Hospital 66403Jcy: (330) Number: Repository [phone] () [id number] Date:2018-07-01 07/01/2018 Secondary KOURTNEY A [place] Insurance:MEDICAIDPol TAYLORDOB: Community icy Number: [id number] Hospital [id number] Repository Date:2018-07-01 07/01/2018 Tertiary NOT GIVENUNK [place] Insurance:SELF PAY [facility] Number: Effective Repository Date:2018-07-01 06/29/2018 KOURTNEY A [id number] Primary KOURTNEY A [place] Insurance:MEDICARE TAYLORDOB: [place] BPolic [id number] Hospital 61449Mjc: (330) Number: Repository [phone] () [id number] Date:2018-06-29 06/29/2018 Secondary KOURTNEY A [place] Insurance:MEDICAIDPol TAYLORDOB: [facility] icy Number: [id number] Hospital [id number] Repository Date:2018-06-29 06/29/2018 Tertiary NOT GIVENUNK [place] Insurance:SELF PAY [facility] Number: Effective Repository Date:2018-06-29 06/18/2018 KOURTNEY A Primary KOURTNEY A [facility] TAYLORDOB: Insurance:MEDICARE TAYLORDOB: [facility] PART B [facility] [id number] Repository [facility] Number: [address] [place], [place] [id number] [place] [address]~MELISSATAYLOR Date:2018-06-18Tel: (613) 892@[facility].COMTel: [phone] [phone] () Name:SANTINO ()Tel: [phone]) Qglykypvjxzckf LLCJF [phone] () [address] [place] [address] [place] [address]IC: 06/18/2018 Secondary KOURTNEY A [facility] Insurance:MEDICAID OF TAYLORDOB: [facility] [id number] Repository Number: 7 [place] [id number] [place] Date:2018-06-1892396Fmj: [phone] [id number]-83Ectb [phone] Name:[address] (HP)Tel: (750) [place] 000-0000 (WP) [id number]: 06/03/2018 KOURTNEY A Primary KOURTNEY A [facility] TAYLORDOB: Insurance:MEDICARE [facility]: [facility] PART B [facility] [id number] Repository [facility]: 7 [facility] [place] [id number] [place] [address]~MELISSATAYLOR Date:2018-06-03Tel: (559) 279@AIL.COMTel: [id number]-12-31plan [phone] () Name:PCGS (HP)Tel: (000 Administrators LLCPO 000-0000 (WP) [address]Okwzrgshw, [place] [address]WU: 06/03/2018 Secondary BAIROIL A [facility] Insurance:MEDICAID [facility]: [facility] [id number] Repository Number: 7 [facility] [id number] [place] Date:2018-05-24 37489Ltg: [phone] [phone] Name:[address] (HP)Tel: 000 [place], [place] 000-0000 (WP) [id number]: 05/29/2018 KOURTNEY SORENSEN Primary KOURTNEY A Ciaran [place] Insurance:MEDICARE [place] BPolic [id number] Hospital 87750Dau: (330) Number: Repository [phone] () [id number] Date:2018-05-29 05/29/2018 Secondary KOURTNEY A [place] [facility] Number: [id number] Hospital [id number] Repository Date:2018-05-29 05/29/2018 Tertiary NOT GIVENUNK [place] Insurance:SELF PAY [facility] Number: Effective Repository Date:2018-05-29 05/26/2018 KOURTNEY [id number] Primary KOURTNEY A [place] Insurance:MEDICARE TAY[place]ORDOB: [place] [facility] [id number] Hospital 99414Wvu: (330) Number: Repository [phone] () [id number] Date:2018-05-26 05/26/2018 Secondary KOURTNEY A [place] Insurance:[facility]ICAIDLancaster General HospitalD[facility]: [facility] Number: [id number] Hospital [id number] Repository Date:2018-05-26 05/26/2018 Tertiary NOT GIVENUNK [place] Insurance:SELF PAY [facility] Number: Effective Repository Date:2018-05-26 05/16/2018 KOURTNEY A Primary KOURTNEY A [facility] TAYLORDOB: Insurance:MEDICARE TAYLORDOB: [facility] PART [facility] Number: [id number] Repository [facility] [id number] [address] [place], [place] Date:2017-07-24 [place] [address]~MELISSATAYLOR 9933-10-33Cggl 39113Nwf: (130) 279@[facility]ITALel: Name:[facility] [id number] () [facility] ()Tel: 000) Zop [phone], 000-0000 (WP) [place] [address]LG: 05/16/2018 Secondary KOURTNEY A [facility] Insurance:MEDICAID [facility]: [facility] [id number] Repository Number: 7 [facility] [id number] [place] Date:2017-07-24 60484Nwu: (683) [phone] [phone] Name:Ruthie [place] ()Tel: 000) [phone]: (WP) [phone] 05/12/2018 KOURTNEY A [id number] Primary KOURTNEY A [place] Insurance:MEDICARE TAY[place]ORDOB: [place] [facility] [id number] Hospital 75198Mru: (330) Number: Repository [phone] () [id number] Date:2018-05-12 05/12/2018 Secondary KOURTNEY A [place] Insurance:MEDICAIDPol TAYLORDOB: [facility] icy Number: [id number] Hospital [id number] Repository Date:2018-05-12 05/12/2018 Tertiary NOT GIVENUNK [place] Insurance:SELF PAY [facility] Number: Effective Repository Date:2018-05-12 05/12/2018 KOURTNEY SORENSEN Primary KOURTNEY A [place] Insurance:MEDICARE TAY[place]ORDOB: [place] [facility] [id number] Hospital 51132Thy: (330) Number: Repository [phone] () [id number] Date:2018-05-12 05/12/2018 Secondary KOURTNEY A [place] Insurance:MEDICAIDPol TAYLORDOB: [facility] icy Number: [id number] Hospital [id number] Repository Date:2018-05-12 05/12/2018 Tertiary NOT GIVENUNK [place] Insurance:SELF PAY [facility] Number: Effective Repository Date:2018-05-12 05/12/2018 KOURTNEY SORENSEN Primary KOURTNEY A Ciaran [place] Insurance:MEDICARE [place]AY[place]ORDOB: [place] [facility] [id number] Hospital 83530Xqf: (330) Number: Repository [phone] () [id number] Date:2018-05-12 05/12/2018 Secondary KOURTNEY A [place] Insurance:MEDICAIDPol [facility]ARDD[facility]: [facility] icy Number: [id number] Hospital [id number] Repository Date:2018-05-12 05/12/2018 Tertiary NOT GIVENUNK [place] Insurance:SELF PAY [facility] Number: Effective Repository Date:2018-05-12 05/12/2018 KOURTNEY SORENSEN Primary KOURTNEY A Ciaran [place] Insurance:MEDICARE [place]AY[place]ORDOB: [place] [facility] [id number] Hospital 31976Yua: (330) Number: Repository [phone] () [id number] Date:2018-05-12 05/12/2018 Secondary KOURTNEY A [place] Insurance:MEDICAIDPol TAYLORDOB: [facility] icy Number: [id number] Hospital [id number] Repository Date:2018-05-12 05/12/2018 Tertiary NOT GIVENUNK [place] Insurance:SELF PAY [facility] Number: Effective Repository Date:2018-05-12 05/12/2018 KOURTNEY SORENSEN Primary KOURTNEY A Ciaran [place] Insurance:MEDICARE [place]AY[place]ORDOB: [place] [facility] [id number] Hospital 82711Gqr: (330) Number: Repository [phone] () [id number] Date:2018-05-12 05/12/2018 Secondary KOURTNEY A [place] Insurance:MEDICAIDPol TAYLORDOB: [facility] ic Number: [id number] Hospital [id number] Repository Date:2018-05-12 05/12/2018 Tertiary NOT GIVENUNK [place] Insurance:SELF PAY [facility] Number: Effective Repository Date:2018-05-12 05/12/2018 KOURTNEY SORENSEN Primary KOURTNEY A [place] Insurance:MEDICARE [place]AY[place]OB: [place] [facility] [id number] Hospital 20951Ifu: (330) Number: Repository [phone] () [id number] Date:2018-05-12 05/12/2018 Secondary KOURTNEY A [place] Insurance:MEDICAIDPol TAYLORDOB: [facility] ic Number: [id number] Hospital [id number] Repository Date:2018-05-12 05/12/2018 Tertiary NOT GIVENUNK [place] Insurance:SELF PAY [facility] Number: Effective Repository Date:2018-05-12 05/12/2018 KOURTNEY SORENSEN Primary KOURTNEY A [place]iar[place] Insurance:MEDICARE [place]AY[place]ORDOB: [place] [facility] [id number] Hospital 26923Csx: (330) Number: Repository [phone] () [id number] Date:2018-05-12 05/12/2018 Secondary KOURTNEY A [place] Insurance:MEDICAIDPol TAYLORDOB: [facility] icy Number: [id number] Hospital [id number] Repository Date:2018-05-12 05/12/2018 Tertiary NOT GIVENUNK [place] Insurance:SELF PAY [facility] Number: Effective Repository Date:2018-05-12 05/12/2018 KOURTNEY SORENSEN Primary KOURTNEY A [place] Insurance:MEDICARE [place]AY[place]ORDOB: [place] [facility] [id number] Hospital 19105Jso: (330) Number: Repository [phone] () [id number] Date:2018-05-12 05/12/2018 Secondary KOURTNEY A [place] Insurance:MEDICAIDPol TAYLORDOB: [facility] icy Number: [id number] Hospital [id number] Repository Date:2018-05-12 05/12/2018 Tertiary NOT GIVENUNK [place] Insurance:SELF PAY [facility] Number: Effective Repository Date:2018-05-12 05/12/2018 KOURTNEY SORENSEN Primary KOURTNEY A Ciar[place] Insurance:MEDICARE [place]AY[place]ORDOB: [place] [facility] [id number] Hospital 18876Tpl: (330) Number: Repository [phone] () [id number] Date:2018-05-12 05/12/2018 Secondary KOURTNEY A [place] Insurance:MEDICAIDPol TAYLORDOB: [facility] icy Number: [id number] Hospital [id number] Repository Date:2018-05-12 05/12/2018 Tertiary NOT GIVENUNK [place] Insurance:SELF PAY [facility] Number: Effective Repository Date:2018-05-12 05/12/2018 KOURTNEY SORENSEN Primary KOURTNEY A [place] Insurance:MEDICARE [place]AY[place]OB: [place] [facility] [id number] Hospital 27039Cca: (330) Number: Repository [phone] () [id number] Date:2018-05-12 05/12/2018 Secondary KOURTNEY A [place] Insurance:MEDICAIDPol TAYLORDOB: [facility] icy Number: [id number] Hospital [id number] Repository Date:2018-05-12 05/12/2018 Tertiary NOT GIVENUNK [place] Insurance:SELF PAY [facility] Number: Effective Repository Date:2018-05-12 05/02/2018 KOURTNEY A [id number] Primary KOURTNEY A [place] Insurance:MEDICARE [place]AY[place]ORDOB: [place] olic [id number] Hospital 47056Scj: (330) Number: Repository [phone] () [id number] Date:2018-05-02 05/02/2018 Secondary KOURTNEY A [place] [facility]OB: [facility] Number: [id number] Hospital [id number] Repository Date:2018-05-02 05/02/2018 Tertiary NOT GIVENUNK [place] Insurance:SELF PAY [facility] Number: Effective Repository Date:2018-05-02 05/01/2018 KOURTNEY A Primary KOURTNEY A [facility] TAYLORDOB: Insurance:MEDICARE TAYLORDOB: [facility] Number: [id number] Repository [facility] [id number] [address] [place], [place] Date:2018-05-01 [place] [address]~MELISSATAYLOR 2599-96-13Qsrj 14982Qtu: (968) 533@[facility].COMTel: Name:[facility] [phone] () [facility] ()Tel: 000) [address]Fmiqejnbe, 000-0000 (WP) [place] [address]JL: 05/01/2018 Secondary KOURTNEY A [facility] Insurance:MEDICAID [facility]: [facility] Number: [id number] Repository [id number] 7 [facility] Date:2018-05-01 - [place] 9600-97-96Djua 70791Ylf: (330) Name:[address]Cdbpqpyi, [place] ()Tel: [phone]) [phone]: (WP) [phone] 04/17/2018 KOURTNEY A [id number] Primary KOURTNEY A [place] Insurance:MEDICARE TAYLORDOB: [place] PART A olic [id number] Hospital 85528Uta: (330) Number: Repository [phone] () [id number] Date:2018-04-17 04/17/2018 Secondary KOURTNEY A [place] Insurance:MEDICAIDPol TAYLORDOB: [facility] icy Number: [id number] Hospital [id number] Repository Date:2018-04-17 04/17/2018 Tertiary NOT GIVENUNK [place] Insurance:SELF PAY [facility] Number: Effective Repository Date:2018-04-17 04/17/2018 KOURTNEY SORENSEN Primary KOURTNEY A [place]iar[place] Insurance:MEDICARE [place]AY[place]ORDOB: [place] [facility] [id number] Hospital 79626Hfz: (330) Number: Repository [phone] () [id number] Date:2018-04-17 04/17/2018 Secondary KOURTNEY A [place] Insurance:MEDICAIDPol TAYLORDOB: [facility] icy Number: [id number] Hospital [id number] Repository Date:2018-04-17 04/17/2018 Tertiary NOT GIVENUNK [place] Insurance:SELF PAY [facility] Number: Effective Repository Date:2018-04-17 04/17/2018 KOURTNEY SORENSEN Primary KOURTNEY A [facility]:MED[facility]ARE TAYLORDOB: [place] [facility] [id number] Hospital 31490Kcg: 330) Number: Repository [phone] () [id number] Date:2018-04-17 04/17/2018 Secondary KOURTNEY A [place] Insurance:MEDICAIDPol TAYLORDOB: [facility] ic Number: [id number] Hospital [id number] Repository Date:2018-04-17 04/17/2018 Tertiary NOT GIVENUNK [place] Insurance:SELF PAY [facility] Number: Effective Repository Date:2018-04-17 04/16/2018 KOURTNEY A Primary KOURTNEY A [facility] TAYLORDOB: Insurance:SELF TAYLORDOB: [facility] Number: [id number] Repository [facility] Effective [address] [place] [address] Date:2018-04-16 - [facility], [address]Kro: (101) [phone] Name:[facility] 32357Ogr: [phone] (HP) (HP) (WP) 04/16/2018 KOURTNEY A Primary [facility]: Insurance:MEDICARE [facility]: [facility] PART BPolicy Number: [id number] Repository [facility] [id number] [address] [place], [place] Date:2017-07-24 [place] [address]~MELISSATAYLOR 2451-91-50Aumj 65621Ilg: (105) 027@AIL.COMTel: Name:[facility] [phone] ( (HP) Administrators [facility] ()Tel: (000) [address] [address]Brmjojdif, 000-0000 (WP) [place] [address]MG: 04/16/2018 Secondary [facility] Insurance:MEDICAID OF TAYLORDOB: [facility] [place] [facility] [id number] Repository Number: 7 [facility] [id number] [place] Date:2017-07-24 [address]Ehd: (233) [phone] [phone] Name:[address] [place] [address] ()Tel: (000) [phone]: (WP) [phone] 04/13/2018 KOURTNEY A Primary [facility]: Insurance:MEDICARE [facility]: [facility] PART BPolicy Number: [id number] Repository [facility] [id number] [address] [place], [place] Date:2018-04-13 [place] [address]~MELISSATAYLOR 3212-08-07Ppyq 69690Ici: (600) 944@AIL.COMTel: Name:[facility] [phone] (HP) Administrators [facility] ()Tel: (000) [address]Lsmosmfez, 000-0000 (WP) [place] [address]AG: 04/13/2018 Secondary KOURTNEY A [facility] Insurance:MEDICAID [facility]: [facility] Number: [id number] Repository [id number] 7 [place] Date:2018-04-13 - [place] 8848-27-04Maqs [address]Lzs: (330) Name:[address] [address]Hcqrfolu, [place] ()Tel: 000) [phone]: (WP) [phone] 04/08/2018 KOURTNEY A [id number] Primary KOURTNEY A Ciaran [facility] Insurance:[facility]ARE [facility]ITAL[facility]: [place] BPolic [id number] Hospital 19887Ouz: (330) Number: Repository () [id number] Date:2018-04-08 04/08/2018 Secondary KOURTNEY A [place] Insurance:[facility]ID[facility] HospitalB: [facility] Number: [id number] Hospital [id number] Repository Date:2018-04-08 04/08/2018 Tertiary NOT GIVENUNK [place] Insurance:SELF PAY [facility] Number: Effective Repository Date:2018-04-08 04/03/2018 KOURTNEY A [facility]ITAL[facility]: [facility] PART [facility] Number: [id number] Repository [facility] [id number] [address] [place] [address] Date:2018-04-03 - [place] [address]~MELISSATAYLOR 3295-74-48Qymb 02880Ejp: (956) 563@AIL.COMTel: Name:[facility] [phone] () Administrators LLCPO ()Tel: (000) [address] [address]Euecdfgbt, 000-0000 (WP) [place] [address]FM: 04/03/2018 Secondary KOURTNEY A [facility] Insurance:MEDICAID [facility]: [facility] Number: [id number] Repository [id number] 7 [place] Date:2018-04-03 - [place] 2025-88-10Jiol [address]Zxy: (330) Name:NADIA Mak [phone] 210925Jytdkolk, [place] ()Tel: ([phone]) [phone]: () [phone] 03/25/2018 KOURTNEY SORENSEN Primary KOURTNEY A [place] Insurance:MEDICARE TAY[place]ORDOB: [place] A [facility] [id number] Hospital 77011Kct: (330) Number: Repository [phone] () [id number] Date:2018-03-25 03/25/2018 Secondary KOURTNEY A Ciaran Insurance:MEDICAIDPol TAYLORDOB: [facility] ic Number: [id number] Hospital [id number] Repository Date:2018-03-25 03/25/2018 Tertiary NOT GIVENUNK Ciaran Insurance:SELF PAY [facility] Number: Effective Repository Date:2018-03-25 03/17/2018 KOURTNEY SORENSEN Primary KOURTNEY A Ciaran CHATEAU Insurance:MEDICARE [place]: [place] PART A [facility] [id number] Hospital [id number]: (330) Number: Repository [phone] () [id number] Date:2018-03-17 03/17/2018 Secondary KOURTNEY A Ciaran Insurance:MEDICAIDPol TAY[place]ORDOB: [facility] ic Number: [id number] Hospital [id number] Repository Date:2018-03-17 03/17/2018 Tertiary NOT GIVENUNK [place] Insurance:SELF PAY [facility] Number: Effective Repository Date:2018-03-17 03/14/2018 KOURTNEY SORENSEN Primary KOURTNEY A Ciaran CHATEAU Insurance:MEDICARE [place]: [place] PART A [facility] [id number] [id number]: (330) Number: Repository [phone] () [id number] Date:2018-02-27 03/14/2018 Secondary KOURTNEY A Ciaran Insurance:MEDICAIDPol TAYLORDOB: [facility] ic Number: [id number] Hospital [id number] Repository Date:2018-02-27 03/14/2018 Tertiary NOT GIVENUNK Ciaran Insurance:SELF PAY [facility] Number: Effective Repository Date:2018-03-14 03/12/2018 KOURTNEY SORENSEN Primary KOURTNEY A [place] Insurance:MEDICARE TAYLORDOB: [place] PART A [facility] [id number] Hospital 91237Cjl: (330) Number: Repository [phone] () [id number] Date:2018-03-12 03/12/2018 Secondary KOURTNEY A [place] Insurance:MEDICAIDPol TAYLORDOB: [facility] ic Number: [id number] Hospital [id number] Repository Date:2018-03-12 03/12/2018 Tertiary NOT GIVENUNK [place] Insurance:SELF PAY [facility] Number: Effective Repository Date:2018-03-12 03/08/2018 KOURTNEY SORENSEN Primary NOT GIVENUNK [place] Insurance:SELF PAY [facility] 92816Znz: (330) Number: Effective Repository [phone] () Date:2018-03-08 03/06/2018 KOURTNEY SORENSEN Primary KOURTNEY A [place] Insurance:MEDICARE TAYLORDOB: [place] [facility] [id number] Hospital 44558Pca: (330) Number: Repository [phone] () [id number] Date:2018-03-06 03/06/2018 Secondary KOURTNEY A [place] Insurance:MEDICAIDPol TAYLORDOB: [facility] ic Number: [id number] Hospital [id number] Repository Date:2018-03-06 03/06/2018 Tertiary NOT GIVENUNK [place] Insurance:SELF PAY [facility] Number: Effective Repository Date:2018-03-06 02/28/2018 KOURTNEY SORENSEN Primary KOURTNEY A [place] Insurance:MEDICARE TAYLORDOB: [place] [facility] [id number] Hospital 48631Dhj: (330) Number: Repository [phone] () [id number] Date:2018-02-28 02/28/2018 Secondary KOURTNEY A [place] Insurance:MEDICAIDPol TAYLORDOB: [facility] icy Number: [id number] Hospital [id number] Repository Date:2018-02-28 02/28/2018 Tertiary NOT GIVENUNK [place] Insurance:SELF PAY [facility] Number: Effective Repository Date:2018-02-28 02/28/2018 KOURTNEY SORENSEN Primary KOURTNEY A [place] Insurance:MEDICARE TAYLORDOB: [place] [facility] [id number] Hospital 23439Lpv: (330) Number: Repository [phone] () [id number] Date:2018-02-28 02/28/2018 Secondary KOURTNEY A [place] Insurance:MEDICAIDPol TAYLORDOB: [facility] icy Number: [id number] Hospital [id number] Repository Date:2018-02-28 02/28/2018 Tertiary NOT GIVENUNK [place] Insurance:SELF PAY [facility] Number: Effective Repository Date:2018-02-28 02/26/2018 KOURTNEY SORENSEN Primary KOURTNEY A [place] Insurance:MEDICARE TAYLORDOB: [place] [facility] [id number] Hospital 70170Xdb: (330) Number: Repository [phone] () [id number] Date:2018-01-29 02/26/2018 Secondary KOURTNEY A [place] Insurance:MEDICAIDPol TAYLORDOB: [facility] ic Number: [id number] Hospital [id number] Repository Date:2018-01-29 02/26/2018 Tertiary NOT GIVENUNK [place] Insurance:SELF PAY [facility] Number: Effective Repository Date:2018-02-21 02/24/2018 KOURTNEY SORENSEN Primary KOURTNEY A [place] Insurance:MEDICARE TAYLORDOB: [place] [facility] [id number] Hospital 40414Rkn: (330) Number: Repository [phone] () [id number] Date:2018-02-24 02/24/2018 Secondary KOURTNEY A [place] Insurance:MEDICAIDPol TAYLORDOB: [facility] icy Number: [id number] Hospital [id number] Repository Date:2018-02-24 02/24/2018 Tertiary NOT GIVENUNK [place] Insurance:SELF PAY [facility] Number: Effective Repository Date:2018-02-24 02/24/2018 KOURTNEY SORENSEN Primary KOURTNEY A [place] Insurance:MEDICARE TAYLORDOB: [place] [facility] [id number] Hospital 12373Oly: (330) Number: Repository [phone] () [id number] Date:2018-02-24 02/24/2018 Secondary KOURTNEY A [place] Insurance:MEDICAIDPol TAYLORDOB: [facility] icy Number: [id number] Hospital [id number] Repository Date:2018-02-24 02/24/2018 Tertiary NOT GIVENUNK [place] Insurance:SELF PAY [facility] Number: Effective Repository Date:2018-02-24 02/24/2018 KOURTNEY SORENSEN Primary KOURTNEY A [place] Insurance:MEDICARE TAYLORDOB: [place] [facility] [id number] Hospital 69303Lrw: (330) Number: Repository [phone] () [id number] Date:2018-02-24 02/24/2018 Secondary KOURTNEY A [place] Insurance:MEDICAIDPol TAYLORDOB: [facility] icy Number: [id number] Hospital [id number] Repository Date:2018-02-24 02/24/2018 Tertiary NOT GIVENUNK [place] Insurance:SELF PAY [facility] Number: Effective Repository Date:2018-02-24 02/24/2018 KOURTNEY SORENSEN Primary KOURTNEY A [place] Insurance:MEDICARE TAYLORDOB: [place] [facility] [id number] Hospital 49428Lps: (330) Number: Repository [phone] () [id number] Date:2018-02-24 02/24/2018 Secondary KOURTNEY A [place] Insurance:MEDICAIDPol TAYLORDOB: [facility] icy Number: [id number] Hospital [id number] Repository Date:2018-02-24 02/24/2018 Tertiary NOT GIVENUNK [place] Insurance:SELF PAY [facility] Number: Effective Repository Date:2018-02-24 02/24/2018 KOURTNEY SORENSEN Primary KOURTNEY A [place] Insurance:MEDICARE TAYLORDOB: [facility] [place] [place] PART A [facility] [id number] Hospital 73347Ett: (330) Number: Repository [phone] () [id number] Date:2018-02-24 02/24/2018 Secondary KOURTNEY A [place] Insurance:MEDICAIDPol TAYLORDOB: [facility] icy Number: [id number] Hospital [id number] Repository Date:2018-02-24 02/24/2018 Tertiary NOT GIVENUNK [place] Insurance:SELF PAY [facility] Number: Effective Repository Date:2018-02-24 02/24/2018 KOURTNEY SORENSEN Primary KOURTNEY A [place] Insurance:MEDICARE TAYLORDOB: [facility] [place] [place] PART A [facility] [id number] Hospital 86607Mmi: (330) Number: Repository [phone] () [id number] Date:2018-02-24 02/24/2018 Secondary KOURTNEY A [place] Insurance:MEDICAIDPol TAYLORDOB: [facility] icy Number: [id number] Hospital [id number] Repository Date:2018-02-24 02/24/2018 Tertiary NOT GIVENUNK [place] Insurance:SELF PAY [facility] Number: Effective Repository Date:2018-02-24 02/24/2018 KOURTNEY SORENSEN Primary KOURTNEY A [place] Insurance:MEDICARE TAYLORDOB: [facility] [place] [place] [facility] [id number] Hospital 96998Ynk: (330) Number: Repository [phone] () [id number] Date:2018-02-24 02/24/2018 Secondary KOURTNEY A [place] Insurance:MEDICAIDPol TAYLORDOB: [facility] icy Number: [id number] Hospital [id number] Repository Date:2018-02-24 02/24/2018 Tertiary NOT GIVENUNK [place] Insurance:SELF PAY [facility] Number: Effective Repository Date:2018-02-24 02/24/2018 KOURTNEY SORENSEN Primary KOURTNEY A [place] Insurance:MEDICARE [place] [place] [facility] [id number] Hospital 55012Gpo: (330) Number: Repository [phone] () [id number] Date:2018-02-24 02/24/2018 Secondary KOURTNEY A [place] Insurance:MEDICAIDPol [facility] [place]: [facility] icy Number: [id number] Hospital [id number] Repository Date:2018-02-24 02/24/2018 Tertiary NOT GIVENUNK [place] Insurance:SELF PAY [facility] Effective Repository Date:2018-02-24 02/20/2018 KOURTNEYSTEFFI REZA197 Primary KOURTNEY A [place] [facility] Insurance:MEDICARE TAYLORDOB: [place] [facility] [id number] Hospital 34535Jgu: (330) Number: Repository [phone] () [id number] Date:2017-11-21 02/20/2018 Secondary KOURTNEY A [place] Insurance:MEDICAIDPol [facility] ic Number: [id number] Hospital [id number] Repository Date:2017-11-21 02/20/2018 Tertiary NOT GIVENUNK [place] Insurance:SELF PAY [facility] Number: Effective Repository Date:2018-02-10 02/19/2018 KOURTNEY A Primary KOURTNEY A [facility] TAYLORDOB: Insurance:MEDICARE TAYLORDOB: [facility] PART [facility] Number: [id number] Repository [facility] [id number] [address] [place] [address] Date:2018-02-19 - [place] [address]~KOURTNEYTAYLOR 0883-95-70Temk 35647Cty: (072) 460@[facility]: Name:[facility] [phone] () Administrators HUMBERTOPO ()Tel: [phone]) Pee [address], [phone] (WP) [place] [address]WM: 02/19/2018 Secondary KOURTNEY A [facility] Insurance:MEDICAID OF TAYLORDOB: [facility] Number: [id number] Repository [id number] 7 [facility] Date:2018-02-19 - [place] 2120-03-97Dgcn 820[address]Hcs: (330) Name:[phone] [id number], [place] ()Tel: [phone]: (wp) [phone] 02/09/2018 KOURTNEYSTEFFI SORENSEN Primary KOURTNEY A [place] Insurance:MEDICARE TAYLORDOB: [place] [facility] [id number] Hospital 79466Kuz: (330) Number: Repository [phone] () [id number] Date:2018-01-29 02/09/2018 Secondary KOURTNEY A [place] Insurance:MEDICAIDPol TAYLORB: [facility] ic Number: [id number] Hospital [id number] Repository Date:2018-01-29 02/09/2018 Tertiary NOT GIVENUNK [place] Insurance:SELF PAY [facility] Number: Effective Repository Date:2018-02-09 02/08/2018 KOURTNEY Van SORENSEN Primary KOURTNEY A [place] Insurance:MEDICARE TAYLORDOB: [place] [facility] [id number] Hospital 57512Rva: (330) Number: Repository [phone] () [id number] Date:2018-02-08 02/08/2018 Secondary KOURTNEY A [place] Insurance:MEDICAIDPol [facility] icy Number: [id number] Hospital [id number] Repository Date:2018-02-08 02/08/2018 Tertiary NOT GIVENUNK [place] Insurance:SELF PAY [facility] Number: Effective Repository Date:2018-02-08 02/08/2018 KOURTNEY Van SORENSEN Primary KOURTNEY A [place] Insurance:MEDICARE TAYLORDOB: [place] [facility] [id number] Hospital 10396Jba: (330) Number: Repository [phone] () [id number] Date:2018-02-08 02/08/2018 Secondary KOURTNEY A [place] Insurance:MEDICAIDPol [facility] icy Number: [id number] Hospital [id number] Repository Date:2018-02-08 02/08/2018 Tertiary NOT GIVENUNK [place] Insurance:SELF PAY [facility] Number: Effective Repository Date:2018-02-08 02/08/2018 KOURTNEY SORENSEN Primary KOURTNEY A [place] Insurance:MEDICARE TAYLORDOB: [place] [facility] [id number] Hospital 88983Olj: (330) Number: Repository [phone] () [id number] Date:2018-02-08 02/08/2018 Secondary KOURTNEY A [place] Insurance:MEDICAIDPol TAYLORDOB: [facility] icy Number: [id number] Hospital [id number] Repository Date:2018-02-08 02/08/2018 Tertiary NOT GIVENUNK [place] Insurance:SELF PAY [facility] Number: Effective Repository Date:2018-02-08 02/08/2018 KOURTNEY [id number] Primary [facility]NEY [facility] [place] [facility]:MEDICARE TAYLORDOB: [place] [facility] [id number] Hospital 20513Cny: (330) Number: Repository [phone] () [id number] Date:2018-02-08 02/08/2018 Secondary KOURTNEY A [place] Insurance:MEDICAIDPol [facility] [place] Number: [id number] Hospital [id number] Repository Date:2018-02-08 02/08/2018 Tertiary NOT GIVENUNK [place] Insurance:SELF PAY [facility] Number: Effective Repository Date:2018-02-08 02/05/2018 KOURTNEY A Primary KOURTNEY A [facility] TAYLORDOB: Insurance:MEDICARE TAYLORDOB: [facility] PART [facility] Number: [id number] [facility] [id number] [address] [place] [address] Date:2018-02-05 - [place] [address]~KOURTNEYTAYLVAMSI 5180-99-79Tipu 18620Fol: (797) 361@AIL.COMTel: Name:[facility] [phone] () Administrators [facility] ()Tel: [phone]) Bom [address]Trodmooql, 000-0000 (WP) [place] [address]FF: 02/05/2018 Secondary KOURTNEY A [facility] Insurance:MEDICAID [facility]: [facility] Number: [id number] Repository [id number] 7 [place] Date:2018-02-05 - [place] 2779-85-03Lpuo 935[address]Zqy: (330) Name:[address] [place] [address], [place] ()Tel: 000) [phone]: (WP) [phone] 02/03/2018 KOURTNEY A Primary [facility] Insurance:MEDICARE TAYLORDOB: [facility] BPcabrini medical centery Number: [id number] Repository [facility] [id number] [address] [place], [place] Date:2018-02-03 - [place] [address]~MELISSATAYLOR [id number] 387[address]Sat: (638) 147@[facility]el: Name:[facility] [phone] () [facility] ()Tel: (000) [address]Igxvoexcd, 000-0000 (WP) [place] [address]RU: 02/03/2018 Secondary KOURTNEY A [facility] Insurance:MEDICAID OF TAYLORDOB: [facility] Number: [id number] Repository [id number] 7 [place] Date:2018-02-03 - [place] 4276-08-61Mpwn [address]Bwx: (330) Name:[phone], [place] ()Tel: 000) [phone]: (WP) [phone] 01/29/2018 KOURTNEY A [id number] Primary KOURTNEY A [place] [facility] Insurance:MEDICARE TAYLORDOB: [place] BPolic [id number] Hospital 99507Eqx: (330) Number: Repository [phone] () [id number] Date:2018-01-29 01/29/2018 Secondary KOURTNEY A [place] Insurance:MEDICAIDPol TAYLORDOB: [facility] ic Number: [id number] Hospital [id number] Repository Date:2018-01-29 01/29/2018 Tertiary NOT GIVENUNK [place] Insurance:SELF PAY [facility] Number: Effective Repository Date:2018-01-29 01/29/2018 KOURTNEY SORENSEN Primary KOURTNEY A [place] Insurance:MEDICARE TAYLORDOB: [place] [facility] [id number] Hospital 22159Xqy: (330) Number: Repository [phone] () [id number] Date:2018-01-29 01/29/2018 Secondary KOURTNEY A [place] Insurance:MEDICAIDPol [facility] Number: [id number] Hospital [id number] Repository Date:2018-01-29 01/29/2018 Tertiary NOT GIVENUNK [place] Insurance:SELF PAY [facility] Number: Effective Repository Date:2018-01-29 01/27/2018 KOURTNEY SORENSEN Primary KOURTNEY A [place] Insurance:MEDICARE [place]AY[place]ORDOB: [place] [facility] [id number] Hospital 69809Lyb: (330) Number: Repository [phone] () [id number] Date:2018-01-27 01/27/2018 Secondary KOURTNEY A [place] Insurance:MEDICAIDPol TAYLORDOB: [facility] Number: [id number] Hospital [id number] Repository Date:2018-01-27 01/27/2018 Tertiary NOT GIVENUNK [place] Insurance:SELF PAY [facility] Number: Effective Repository Date:2018-01-27 01/22/2018 KOURTNEY SORENSEN Primary KOURTNEY A [place] Insurance:MEDICARE TAY[place]ORDOB: [place] [facility] [id number] Hospital 62901Apq: (330) Number: Repository [phone] () [id number] Date:2018-01-22 01/22/2018 Secondary KOURTNEY A [place] Insurance:MEDICAIDPol [facility] icy Number: [id number] Hospital [id number] Repository Date:2018-01-22 01/22/2018 Tertiary NOT GIVENUNK [place] Insurance:SELF PAY [facility] Number: Effective Repository Date:2018-01-22 01/22/2018 KOURTNEY A Primary KOURTNEY A [facility] TAYLORDOB: Insurance:MEDICARE TAYLORDOB: [facility] PART BPolicy Number: [id number] Repository [facility] [id number] [address] [place], [place] Date:2018-01-22 - [place] [address]~BIBIYLOR 5826-26-85Tefn 42735Qpj: (284) 403@[facility]: Name:[facility] [phone] () Administrators LLC ()Tel: 000) [address] [address]Npwaghadk, 000-0000 () [place] [address]PP: 01/22/2018 Secondary KOURTNEY A [facility] Insurance:MEDICAID [facility]: [facility] Number: [id number] Repository [id number] 7 [facility] Date:2018-01-22 - [place] 3835-29-33Pbyd [address]727Vln: (330) Name:NADIA MICHELLEWENDYRavi [address]Dbfcftwd, [place] ()Tel: ([phone]) [phone]: (WP) [phone] 01/17/2018 KOURTNEY A [id number] Primary KOURTNEY A [place] [facility] Insurance:MEDICARE TAYLORDOB: [place] [facility] [id number] Hospital 39405Nnd: (330) Number: Repository [phone] () [id number] Date:2018-01-17 01/17/2018 Secondary KOURTNEY A [place] Insurance:MEDICAIDPol [facility] icy Number: [id number] Hospital [id number] Repository Date:2018-01-17 01/17/2018 Tertiary NOT GIVENUNK [place] Insurance:SELF PAY [facility] Number: Effective Repository Date:2018-01-17 01/11/2018 KOURTNEY SORENSEN Primary KOURTNEY A [place] Insurance:MEDICARE TAY[place]ORDOB: [place] [facility] [id number] Hospital 49578Tse: (330) Number: Repository [phone] () [id number] Date:2018-01-11 01/11/2018 Secondary KOURTNEY A [place] Insurance:MEDICAIDPol TAYLORDOB: [facility] icy Number: [id number] Hospital [id number] Repository Date:2018-01-11 01/11/2018 Tertiary NOT GIVENUNK [place] Insurance:SELF PAY [facility] Number: Effective Repository Date:2018-01-11 01/11/2018 KOURTNEY SORENSEN Primary KOURTNEY A [place] Insurance:MEDICARE [place]AY[place]ORDOB: [place] [facility] [id number] Hospital 13384Qhn: (330) Number: Repository [phone] () [id number] Date:2018-01-11 01/11/2018 Secondary KOURTNEY A [place] Insurance:MEDICAIDPol TAYLORDOB: [facility] icy Number: [id number] Hospital [id number] Repository Date:2018-01-11 01/11/2018 Tertiary NOT GIVENUNK [place] Insurance:SELF PAY [facility] Number: Effective Repository Date:2018-01-11 01/11/2018 KOURTNEY SORENSEN Primary KOURTNEY [place] Insurance:MEDICARE [place]AY[place]ORDOB: [place] [facility] [id number] Hospital 90511Qzz: (330) Number: Repository [phone] () [id number] Date:2018-01-11 01/11/2018 Secondary KOURTNEY A [place] Insurance:MEDICAIDPol TAYLORDOB: [facility] icy Number: [id number] Hospital [id number] Repository Date:2018-01-11 01/11/2018 Tertiary NOT GIVENUNK [place] Insurance:SELF PAY [facility] Number: Effective Repository Date:2018-01-11 01/08/2018 KOURTNEY A Primary KOURTNEY A [facility] TAYLORDOB: Insurance:MEDICARE TAYLORDOB: [facility] PART BPolicy Number: [id number] Repository [facility] [id number] [address] [place], [place] Date:2018-01-08 - [place] [address]~MELISSATAYLOR 5508-13-22Agmb 93535Ofb: (044) 116@AIL.COMTel: Name:[facility] [phone] () Administrators [facility] ()Tel: (000) [address] [address]Cqquzdvrh, 000-0000 (WP) [place] [address]VE: 01/05/2018 KOURTNEY A Primary [facility]NEY [facility] TAYLORDOB: Insurance:MEDICARE TAYLORDOB: [facility] PART BPolicy Number: [id number] Repository [facility] [id number] [address] [place], [place] Date:2018-01-05 - [place] [address]~MELISSATAYLOR 3067-59-80Dvyd 31523Oon: (349) 454@[facility].COMTel: Name:[facility] [phone] () Administrators [facility] ()Tel: (000) [address] [address]Vhitcsbvb, 000-0000 (WP) [place] [address]BU: 01/01/2018 KOURTNEYSTEFFI [id number] Primary KOURTNEY A [place] [facility] Insurance:MEDICARE TAYLORDOB: [place] A BPolicy [id number] Hospital 43388Pee: (330) Number: Repository [phone] () [id number] Date:2017-11-21 01/01/2018 Secondary KOURTNEY A [place] [facility] Hospital[facility] Number: [id number] Hospital [id number] Repository Date:2017-11-21 01/01/2018 Tertiary NOT GIVENUNK [place] Insurance:SELF PAY [facility] Number: Effective Repository Date:2017-12-22 12/30/2017 KOURTNEY A Primary KOURTNEY A [facility] TAYLORDOB: Insurance:MEDICARE TAYLORDOB: [facility] PART [facility] Number: [id number] [place] [address] [id number] [place] [address] Date:2017-12-30 - [place] [address]~FELIPE 4918-71-02Eukf 39336Vgs: (067) 775@[facility].COMTel: Name:[facility] [phone] () Administrators LLCPO ()Tel: (128) [address] [address]Ziewfnnti, 000-0000 () [place] [address]UQ: 12/28/2017 KOURTNEY SORENSEN Primary KOURTNEY A [place] Insurance:MEDICARE TAYLORDOB: [place] [facility] [id number] Hospital 57324Xie: 330) Number: Repository [phone] () [id number] Date:2017-12-28 12/28/2017 Secondary KOURTNEY A [place] Insurance:MEDICAIDPol TAYLORDOB: [facility] Number: [id number] Hospital [id number] Repository Date:2017-12-28 12/28/2017 Tertiary NOT GIVENUNK [place] Insurance:SELF PAY [facility] Number: Effective Repository Date:2017-12-28 12/24/2017 KOURTNEY SORENSEN Primary KOURTNEY A [place] Insurance:MEDICARE TAY[place]ORDOB: [place] [facility] [id number] Hospital 95549Zds: (330) Number: Repository [phone] () [id number] Date:2017-12-24 12/24/2017 Secondary KOURTNEY A [place] Insurance:MEDICAIDPol TAYLORDOB: [facility] ic Number: [id number] Hospital [id number] Repository Date:2017-12-24 12/24/2017 Tertiary NOT GIVENUNK [place] Insurance:SELF PAY [facility] Number: Effective Repository Date:2017-12-24 12/18/2017 KOURTNEY SORENSEN Primary KOURTNEY [place] Insurance:MEDICARE TAY[place]ORDOB: [place] [facility] [id number] [facility] [id number]: ([phone]) Number: Repository [phone] () [id number] Date:2017-12-18 12/18/2017 Secondary KOURTNEY A [place] Insurance:MEDICAIDPol TAYLORDOB: [facility] icy Number: [id number] [id number] Repository Date:2017-12-18 12/18/2017 Tertiary NOT GIVENUNK [place] Insurance:SELF PAY [facility] Number: Effective Repository Date:2017-12-18 12/04/2017 KOURTNEY SORENSEN Primary KOURTNEY A [place]iar[place] Insurance:MEDICARE TAYLORDOB: [place] PART A [facility] [id number] Hospital [id number]: ([phone]) Number: Repository [phone] () [id number] Date:2017-11-21 12/04/2017 Secondary KOURTNEY A Ciar[place] Insurance:MEDICAIDPol TAYLORDOB: [facility] ic Number: [id number] [id number] Repository Date:2017-11-21 12/04/2017 Tertiary NOT GIVENUNK [place] Insurance:SELF PAY [facility] Number: Effective Repository Date:2017-11-21 12/04/2017 KOURTNEY SORENSEN Primary KOURTNEY A Ciar[place] Insurance:MEDICARE TAYLORDOB: [place], [place] [facility] [id number] Hospital [address]Iwa: (330) Number: Repository [phone] () [id number] Date:2017-11-21 12/04/2017 Secondary KOURTNEY A Ciaran Insurance:MEDICAIDPol [place] [facility] [place]: [id number] Hospital [id number] Repository Date:2017-11-21 12/04/2017 Tertiary NOT GIVENUNK [place]iar[place] Insurance:SELF PAY [facility] Number: Effective Repository Date:2017-12-04 11/21/2017 KOURTNEY SORENSEN Primary KOURTNEY A Ciaran [place] Insurance:MEDICARE TAYLORDOB: [place] PART A [facility] [id number] Hospital [address]856Svg: (330) Number: Repository [phone] () [id number] Date:2017-11-21 11/21/2017 Secondary KOURTNEY A Ciaran Insurance:MEDICAIDPol TAYLORDOB: [facility] icy Number: [id number] Hospital [id number] Repository Date:2017-11-21 11/21/2017 Tertiary NOT GIVENUNK [place] Insurance:SELF PAY [facility] Number: Effective Repository Date:2017-11-21 11/14/2017 KOURTNEY SORENSEN Primary KOURTNEY A [place] Insurance:MEDICARE TAYLORDOB: [place] PART [place] [facility] [id number] Hospital [address]Giw: (330) Number: Repository [phone] () [id number] Date:2017-11-14 11/14/2017 Secondary KOURTNEY A Ciaran Insurance:MEDICAIDPol TAYLORDOB: [facility] icy Number: [id number] Hospital [id number] Repository Date:2017-11-14 11/14/2017 Tertiary NOT GIVENUNK [place] Insurance:SELF PAY [facility] Number: Effective Repository Date:2017-11-14 11/14/2017 KOURTNEY SROENSEN Primary KOURTNEY A Ciaran [place] Insurance:MEDICARE TAYLORDOB: [place] PART [place] [facility] [id number] Hospital 16[address]Qmo: (330) Number: Repository [phone] () [id number] Date:2017-11-14 11/14/2017 Secondary KOURTNEY A [place] Insurance:MEDICAIDPol TAYLORDOB: [facility] icy Number: [id number] Hospital [id number] Repository Date:2017-11-14 11/14/2017 Tertiary NOT GIVENUNK [place] Insurance:SELF PAY [facility] Number: Effective Repository Date:2017-11-14 11/14/2017 KOURTNEY SORENSEN Primary KOURTNEY A [place] Insurance:MEDICARE TAYLORDOB: [place] [facility] [id number] Hospital [address]Lsd: (330) Number: Repository [phone] () [id number] Date:2017-11-14 11/14/2017 Secondary KOURTNEY A [place] Insurance:MEDICAIDPol TAYLORDOB: [facility] icy Number: [id number] Hospital [id number] Repository Date:2017-11-14 11/14/2017 Tertiary NOT GIVENUNK [place] Insurance:SELF PAY [facility] Number: Effective Repository Date:2017-11-14 11/14/2017 KOURTNEY SORENSEN Primary KOURTNEY A Ciaran [place] Insurance:MEDICARE TAYLORDOB: [place] [facility] [id number] Hospital [address]Crn: (330) Number: Repository [phone] () [id number] Date:2017-11-14 11/14/2017 Secondary KOURTNEY A Ciar[place] Insurance:MEDICAIDPol TAYLORDOB: [facility] icy Number: [id number] Hospital [id number] Repository Date:2017-11-14 11/14/2017 Tertiary NOT GIVENUNK [place] Insurance:SELF PAY [facility] Number: Effective Repository Date:2017-11-14 11/14/2017 KOURTNEY SORENSEN Primary KOURTNEY A Ciar[place] Insurance:MEDICARE TAYLORDOB: [place] [facility] [id number] Hospital [address]Rxt: (330) Number: Repository [phone] () [id number] Date:2017-11-14 11/14/2017 Secondary KOURTNEY A Ciar[place] Insurance:MEDICAIDPol TAY[place]ORDOB: [facility] [place] Number: [id number] Hospital [id number] Repository Date:2017-11-14 11/14/2017 Tertiary NOT GIVENUNK [place] Insurance:SELF PAY [facility] Number: Effective Repository Date:2017-11-14 11/14/2017 KOURTNEY SORENSEN Primary KOURTNEY A Ciaran [place] Insurance:MEDICARE TAYLORDOB: [place] [facility] [id number] Hospital 10688Oeh: (330) Number: Repository [phone] () [id number] Date:2017-11-14 11/14/2017 Secondary KOURTNEY A [place] Insurance:MEDICAIDPol TAYLORDOB: [facility] icy Number: [id number] Hospital [id number] Repository Date:2017-11-14 11/14/2017 Tertiary NOT GIVENUNK [place] Insurance:SELF PAY [facility]: Effective Repository Date:2017-11-14 11/14/2017 KOURTNEY SORENSEN Primary KOURTNEY W[facility] Insurance:MEDICARE TAYLORDOB: [place] PART [place] BPolicy [id number] Hospital [address]Wbx: (330) Number: Repository [phone] () [id number] Date:2017-11-14 11/14/2017 Secondary KOURTNEY A [place] Insurance:MEDICAIDPol [place]OB: [facility] [place] Number: [id number] Hospital [id number] Repository Date:2017-11-14 11/14/2017 Tertiary NOT GIVENUNK [place] Insurance:SELF PAY [facility] Number: Effective Repository Date:2017-11-14 11/14/2017 KOURTNEY A Primary KOURTNEY Lucianoman Blanca TAYLORDOB: Insurance:MEDICARE TAYLORDOB: [facility] PART BPolicy Number: [id number] [facility] [id number] [address] [place], [place] Date:2017-11-14 - [place] [address]~MELISSATAYLOR [id number] [address]33[address]Szu: [phone] 279@AIL.COMTel: Name:[facility] [phone] () Administrators [facility] ()Tel: (000) [address] [address]Uuqmgogay, 000-0000 ([place]) [place] [address]VP: 11/12/2017 KOURTNEY Araujo [facility] TAYLORDOB: Insurance:MEDICARE TAYLORDOB: [facility] PART BPolicy Number: [id number] Repository [facility] [id number] [address] [place], [place] Date:2017-11-12 - [place] [address]~MELISSATAYLOR [id number] 547[address]Prl: [phone]@AIL.COMTel: Name:[facility] [phone] () Administrators LLCPO ()Tel: (000) [address] [address]Lyhhsoucv, 000-0000 ([place]) [place] [address]WE: 11/05/2017 KOURTNEY SORENSEN Primary KOURTNEY A Ciaran [place] Insurance:MEDICARE TAYLORDOB: [place] PART [place] [facility] [id number] Hospital 526[address]May: (330) Number: Repository [phone] () [id number] Date:2017-11-05 11/05/2017 Secondary KOURTNEY A [place] Insurance:MEDICAIDPol TAYLORDOB: [facility] icy Number: [id number] Hospital [id number] Repository Date:2017-11-05 11/05/2017 Tertiary NOT GIVENUNK [place] Insurance:SELF PAY [facility] Number: Effective Repository Date:2017-11-05 11/05/2017 KOURTNEY SORENSEN Primary KOURTNEY A [place]iar[place] Insurance:MEDICARE TAYLORDOB: [place] PART [place] [facility] [id number] Hospital [address]Wfl: (330) Number: Repository [phone] () [id number] Date:2017-11-05 11/05/2017 Secondary KOURTNEY A [place] Insurance:MEDICAIDPol TAYLORDOB: [facility] ic Number: [id number] Hospital [id number] Repository Date:2017-11-05 11/05/2017 Tertiary NOT GIVENUNK [place] Insurance:SELF PAY [facility] Number: Effective Repository Date:2017-11-05 11/05/2017 KOURTNEY SORENSEN Primary KOURTNEY A Ciaran [place] Insurance:MEDICARE TAY[place]ORDOB: [place] [facility] [id number] Hospital 40266Glu: (330) Number: Repository [phone] () [id number] Date:2017-11-05 11/05/2017 Secondary KOURTNEY A C[place] Insurance:MEDICAIDPol TAYLORDOB: [facility] ic Number: [id number] Hospital [id number] Repository Date:2017-11-05 11/05/2017 Tertiary NOT GIVENUNK [place] Insurance:SELF PAY [facility] Number: Effective Repository Date:2017-11-05 11/05/2017 KOURTNEY SORENSEN Primary KOURTNEY A Ciar[place] Insurance:MEDICARE TAY[place]ORDOB: [place] [facility] [id number] Hospital 25539Waq: (330) Number: Repository [phone] () [id number] Date:2017-11-05 11/05/2017 Secondary KOURTNEY A Ciar[place] Insurance:MEDICAIDPol TAYLORDOB: [facility] ic Number: [id number] Hospital [id number] Repository Date:2017-11-05 11/05/2017 Tertiary NOT GIVENUNK [place] Insurance:SELF PAY [facility] Number: Effective Repository Date:2017-11-05 11/05/2017 KOURTNEY SORENSEN Primary KOURTNEY A Ciar[place] Insurance:MEDICARE TAYLORDOB: [place] [facility] [id number] Hospital 70381Ukg: (330) Number: Repository [phone] () [id number] Date:2017-11-05 11/05/2017 Secondary KOURTNEY A [place] Insurance:MEDICAIDPol [place]OB: [facility] [place] Number: [id number] Hospital [id number] Repository Date:2017-11-05 11/05/2017 Tertiary NOT GIVENUNK [place] Insurance:SELF PAY [facility] Number: Effective Repository Date:2017-11-05 10/31/2017 KOURTNEY SORENSEN Primary KOURTNEY A Ciar[place] Insurance:MEDICARE TAYLORDOB: [place] [facility] [id number] Hospital 63539Oqw: (330) Number: Repository [phone] () [id number] Date:2017-10-31 10/31/2017 Secondary KOURTNEY A [place] Insurance:MEDICAIDPol TAYLORDOB: [facility] ic Number: [id number] Hospital [id number] Repository Date:2017-10-31 10/31/2017 Tertiary NOT GIVENUNK [place] Insurance:SELF PAY [facility] Number: Effective Repository Date:2017-10-31 10/23/2017 KOURTNEY SORENSEN Primary KOURTNEY A [place] Insurance:MEDICARE TAY[place]ORDOB: [place] [facility] [id number] Hospital 62124Aax: (330) Number: Repository [phone] () [id number] Date:2017-10-23 10/23/2017 Secondary KOURTNEY A [place] Insurance:MEDICAIDPol TAYLORDOB: [facility] icy Number: [id number] Hospital [id number] Repository Date:2017-10-23 10/23/2017 Tertiary NOT GIVENUNK [place] Insurance:SELF PAY [facility] Number: Effective Repository Date:2017-10-23 10/23/2017 KOURTNEY SORENSEN Primary KOURTNEY A Ciaran [place] Insurance:MEDICARE TAYLORDOB: [place] [facility] [id number] Hospital 06423Tnu: (330) Number: Repository [phone] () [id number] Date:2017-10-23 10/23/2017 Secondary KOURTNEY A [place] Insurance:MEDICAIDPol TAYLORDOB: [facility] icy Number: [id number] Hospital [id number] Repository Date:2017-10-23 10/23/2017 Tertiary NOT GIVENUNK [place] Insurance:SELF PAY [facility] Number: Effective Repository Date:2017-10-23 10/23/2017 KOURTNEY SORENSEN Primary KOURTNEY A [place] Insurance:MEDICARE TAY[place]ORDOB: [place] [facility] [id number] Hospital [address]60[address]Drm: (330) Number: Repository [phone] () [id number] Date:2017-10-23 10/23/2017 Secondary KOURTNEY A Ciar[place] Insurance:MEDICAIDPol TAYLORDOB: [facility] ic Number: [id number] Hospital [id number] Repository Date:2017-10-23 10/23/2017 Tertiary NOT GIVENUNK [place] Insurance:SELF PAY [facility] Number: Effective Repository Date:2017-10-23 10/23/2017 KOURTNEY SORENSEN Primary KOURTNEY A [place] Insurance:MEDICARE [place]AY[place]ORDOB: [place] [facility] [id number] Hospital 53417Lrg: (330) Number: Repository [phone] () [id number] Date:2017-10-23 10/23/2017 Secondary KOURTNEY A [place] Insurance:MEDICAIDPol [place] icy Number: [id number] Hospital [id number] Repository Date:2017-10-23 10/23/2017 Tertiary NOT GIVENUNK [place] Insurance:SELF PAY [facility] Number: Effective Repository Date:2017-10-23 10/23/2017 KOURTNEY A [id number] Primary KOURTNEY A [place] Insurance:MEDICARE TAYLORDOB: [place] PART [place] [facility] [id number] Hospital 93389Fno: (330) Number: Repository [phone] () [id number] Date:2017-10-23 10/23/2017 Secondary KOURTNEY A [place] Insurance:MEDICAIDPol [facility] icy Number: [id number] Hospital [id number] Repository Date:2017-10-23 10/23/2017 Tertiary NOT GIVENUNK [place] Insurance:SELF PAY [facility] Number: Effective Repository Date:2017-10-23 09/05/2017 [facility] Primary KOURTNEY A [facility] [id number] [facility] Insurance:[place] SPECIALTY Repository [address]Vvk: 330) [facility] [id number] () Number: [id number] Date:[address] [place], [place] [address]QH: 09/05/2017 Secondary KOURTNEY A [facility] Insurance:MEDICAREPol [facility] ic Number: Repository [id number] Date:2015-09-22 [facility] [id number] CODE QT489CADMMCBV, [place] [address]NG: 09/05/2017 Tertiary KOURTNEY A [facility] Insurance:MEDICAID [facility] Number: Repository [id number] Date:9962-89-08[address], [place] [address]IU: 09/02/2017 KOURTNEY A Primary KOURTNEY A [place] [facility]:MEDICARE [facility] PART A [facility] [id number] Hospital [id number] [address] Number: Mary FERNANDEZ, [id number] [place] [id number]: Date:2017-09-01 ~330-9 (HP) 09/02/2017 Secondary KOURTNEY A [place] Insurance:MEDICAIDPol TAYLORDOB: Community icy Number: [id number] Hospital [id number] Repository Date:2017-09-01 09/02/2017 Tertiary NOT GIVENUNK [place] Insurance:SELF PAY [facility] Number: Effective Repository Date:2017-09-01 09/02/2017 KOURTNEY A Primary KOURTNEY A [place] TAYLOREMBASSY Insurance:MEDICARE TAYLORDOB: [place] PART A [facility] [id number] Number: Mary FERNANDEZ, [id number] [place] [id number]: Date:2017-09-01 ~330-9 (HP) 09/02/2017 Secondary KOURTNEY A [place] Insurance:MEDICAIDPol TAYLORDOB: Community icy Number: [id number] Hospital [id number] Repository Date:2017-09-01 09/02/2017 Tertiary NOT GIVENUNK [place] Insurance:SELF PAY [facility] Number: Effective Repository Date:2017-09-02 09/02/2017 KOURTNEY A Primary KOURTNEY A Ciaran TAYLOREMBASSY Insurance:MEDICARE TAYLORDOB: [place] PART A [facility] [id number] Number: Mary FERNANDEZ, [id number] [place] [id number]: Date:2017-09-01 ~330-9 (HP) 09/02/2017 Secondary KOURTNEY A [place] Insurance:MEDICAIDPol TAYLORDOB: Community icy Number: [id number] Hospital [id number] Repository Date:2017-09-01 09/02/2017 Tertiary NOT GIVENUNK [place] Insurance:SELF PAY [facility] Number: Effective Repository Date:2017-09-02 09/02/2017 KOURTNEY A Primary KOURTNEY A [place] TAYLOREMBASSY Insurance:MEDICARE TAYLORDOB: [place] PART A [facility] [id number] Hospital [id number] E Number: Mary FERNANDEZ, [id number] [place] [id number]: Date:2017-09-01 ~330-9 (HP) 09/02/2017 Secondary KOURTNEY A [place] Insurance:MEDICAIDPol TAYLORDOB: Community icy Number: [id number] Hospital [id number] Repository Date:2017-09-01 09/02/2017 Tertiary NOT GIVENUNK [place] Insurance:SELF PAY [facility] Number: Effective Repository Date:2017-09-02 09/02/2017 KOURTNEY A Primary KOURTNEY A Ciaran TAYLOREMBASSY Insurance:MEDICARE TAYLORDOB: [place] PART A [facility] [id number] Hospital [id number] E Number: Mary FERNANDEZ, [id number] n[place] [id number]: Date:2017-09-01 ~330-9 (HP) 09/02/2017 Secondary KOURTNEY A [place] Insurance:MEDICAIDPol TAYLORDOB: [facility] icy Number: [id number] Hospital [id number] Repository Date:2017-09-01 09/02/2017 Tertiary NOT GIVENUNK [place] Insurance:SELF PAY [facility] Number: Effective Repository Date:2017-09-02 09/02/2017 KOURTNEY A Primary KOURTNEY A Ciaran TAYLOREMBASSY Insurance:MEDICARE TAYLORDOB: [place] PART A [facility] [id number] Hospital [id number] E Number: Mary FERNANDEZ, [id number] [place] [id number]: Date:2017-09-01 ~330-9 (HP) 09/02/2017 Secondary KOURTNEY A [place] Insurance:MEDICAIDPol TAYLORDOB: [facility] icy Number: [id number] Hospital [id number] Repository Date:2017-09-01 09/02/2017 Tertiary NOT GIVENUNK [place] Insurance:SELF PAY [facility] Number: Effective Repository Date:2017-09-02 08/12/2017 KOURTNEY Van [id number] Primary KOURTNEY A [place] Insurance:MEDICARE [place]OB: [place] [facility] [id number] Hospital 10136Xvu: (330) Number: Repository [phone] ) [id number] Date:2017-08-12 08/12/2017 Secondary KOURTNEY A [place] Insurance:MEDICAIDPol TAYLORDOB: Community icy Number: [id number] Hospital [id number] Repository Date:2017-08-12 08/12/2017 Tertiary NOT GIVENUNK [place] Insurance:SELF PAY [facility] Number: Effective Repository Date:2017-08-12
== END 2018-08-11 13:18 | disposition home or self-care (01) | DRG 602 ==
LOC: ED 15:45 → MS3 16:03
PROVIDERS: Admitting Provider Internal Medicine; Emergency Provider Emergency Medicine; Family Provider Family Medicine; PCP Family Medicine; Visit Provider Internal Medicine
DX: L03.311 Cellulitis of abdominal wall (principal); N18.6 End stage renal disease; I13.2 Hypertensive heart and chronic kidney disease with heart failure and with stage 5 chronic kidney disease, or end stage renal disease; I50.22 Chronic systolic (congestive) heart failure; I42.9 Cardiomyopathy, unspecified; E11.22 Type 2 diabetes mellitus with diabetic chronic kidney disease; Z23 Encounter for immunization; E65 Localized adiposity; B37.2 Candidiasis of skin and nail; E11.40 Type 2 diabetes mellitus with diabetic neuropathy, unspecified; E11.43 Type 2 diabetes mellitus with diabetic autonomic (poly)neuropathy; K31.84 Gastroparesis; F17.210 Nicotine dependence, cigarettes, uncomplicated; E78.5 Hyperlipidemia, unspecified; E66.9 Obesity, unspecified; I25.10 Atherosclerotic heart disease of native coronary artery without angina pectoris; Z99.2 Dependence on renal dialysis; Z93.3 Colostomy status; Z79.4 Long term (current) use of insulin; Z95.5 Presence of coronary angioplasty implant and graft; Z68.32 Body mass index [BMI] 32.0-32.9, adult; Z87.74 Personal history of (corrected) congenital malformations of heart and circulatory system
CPT/HCPCS: 36415; 80048; 81001; 82962; 83605; 85025; 85027; 87040; 87086; 87088; 90937; 97802; 99285; 99406; J7030; J7040; 90686; A4216; G0257; J0295; J2405

== ENCOUNTER 2018-09-04 11:25 | Emergency (ER) | payer MEDICARE, MEDICAID, SELFPAY ==
[2018-08-09 16:30] VITALS: BMI 32.2
[2018-09-04 11:25] VITALS: BP 154/125; PULSE 85; RESP 20; TEMP 36.9; O2SAT 93; BMI 31.8
[2018-09-04 11:30] VITALS: O2SAT 90
--- NOTE | 2018-09-04 11:44 | EKG12_ITS ---
Test Reason : CP Blood Pressure : / mmHG Vent. Rate : 081 BPM Atrial Rate : 081 BPM P-R Int : 126 ms QRS Dur : 090 ms QT Int : 402 ms P-R-T Axes : 045 067 245 degrees QTc Int : 466 ms Normal sinus rhythm T wave abnormality, consider inferior ischemia Prolonged QT Abnormal ECG Confirmed by DIVINA BEASLEY, SUSI ([id number]), commissioning editor SHANIA SOLITARIO ([id number] on 09/07/2018 8:21:03 AM Referred By: DANIE/HELENE Confirmed By:SUSI MURCIA MD
--- NOTE | 2018-09-04 11:44 | RAD_ITS ---
STUDY: X-RAY CHEST REASON FOR EXAM: Female, 42 years old. Chest pain and back pain. Increasing shortness of breath. TECHNIQUE: PA and lateral views of the chest. COMPARISON: Comparison is made with prior study dated July 18, 2018. FINDINGS: EKG electrodes are seen. Since prior study, there has been progressive infiltration at the lung bases. This may represent superimposed atelectasis and/or pneumonic infiltrates on chronic bibasilar scarring. There is blunting of both costophrenic angles. There is mild cardiac enlargement. Normal mediastinum and latrell. Normal visualized pulmonary arteries. Normal visualized aortic arch and descending thoracic aorta. Normal visualized thoracic spine. Normal visualized ribs, clavicles, and shoulders. There is no demonstrated abnormality of the visualized soft tissue structures of the upper abdomen. RAD/Chest PA and Lateral IMPRESSION: Progressive infiltration and/or atelectasis at the lung bases with blunting of both costophrenic angles. Electronically Signed: Josh Hill MD at 13:03 EST , Service support ,
[2018-09-04] MEDS: Aspirin 81 MG TAB.CHEW 324 MG PO (12:06)
[2018-09-04] MEDS: Mag Hydrox/Al Hydrox/Simeth 30 ML UDC PO (12:06)
[2018-09-04 12:08] LABS: Absolute Lymphocyte Count 1.01 X10^3/ul (0.83-4.51); Absolute Neutrophil Count 4.8 X10^3/uL (2.0-7.7); Basophil# 0.01 X10^3/uL; Basophil% 0.2 % (0-1); Eosinophil# 0.22 X10^3/uL; Eosinophils% 3.5 % (0-5); Hematocrit 36.5 % (37-47); Hemoglobin 11.1 g/dl (12.0-15.0); Lymphocyte # 1.01 X10^3/ul (4.0); Lymphocyte % 16.2 % (19-41); Mean Corp Hgb Conc 30.4 g/gl (32-36); Mean Corpuscular Hgb 31.7 pg (27.0-32.0); Mean Corpuscular Volume 104.3 fL (81-99); Monocyte% 3.2 % (0-10); Neutrophil # 4.77 X10^3/uL (2.7-7.7); Neutrophil % 76.4 % (47-70); Platelet Count 124 K/mm3 (150-450); RBC Distribution Width SD 68.1 fl (35.1-43.9); White Blood Count 6.2 K/mm3 (4.4-11.0)
[2018-09-04 12:10] LABS: POSITIVE COUNT NO; POSITIVE DIFFERENTIAL NO; POSITIVE MORPHOLOGY YES
[2018-09-04 12:11] LABS: Differential Indicated SCAN CRITERIA MET
[2018-09-04 12:16] VITALS: O2SAT 97
[2018-09-04 12:25] VITALS: BP 137/100; PULSE 79; RESP 21; O2SAT 96
[2018-09-04 12:26] LABS: Anion Gap 10 (5-15); BUN 62 mg/dL (7-18); BUN/Creat Ratio 8.2 RATIO (10-20); Chloride 106 mmol/L (98-107); Creatinine, Serum 7.59 mg/dL (0.55-1.02); EST Glomerular Filtration Rate 6 mL/min (>60); Est Glom Filt Rate - Afr Amer 7 mL/min (>60); Estimated Creatinine Clearance 8.85 ml/min; Glucose 193 mg/dL (74-106); Potassium 5.5 mmol/L (3.5-5.1); Sodium Level 139 mmol/L (136-145)
--- NOTE | 2018-09-04 12:32 | ED.DCSUM_ITS ---
- ER Visit Summary Date of Service: 09/04/18 Chief Complaint: Chest pain History of Present Illness: The patient is a 42 F who presents with chest pain that she localized to the xiphoid region. She is also belching. She states the pain is sharp. She states she had similar pain and was diagnosed with kisha estive heart failure. She contacted her campaign management senior manager and stated she was coming to the emergency department. She is due for dialysis today. She denies fever, chills night sweats. Denies visual, ocular auditory symptoms. She denies rhinorrhea, congestion postnasal drip sore throat. She does complain of sharp chest pain. Denies palpitations or rapid heartbeat. She denies orthopnea or PND. She has mild dyspnea and dyspnea on exertion. She denies abdominal pain. She reports belching. She denies nausea, vomiting or diarrhea. She denies myalgias arthralgias. She denies headache or weakness. She denies hives, angioedema or anaphylaxis. She denies easily bruising or bleeding problems. Past medical history coronary disease, CHF, type 1 diabetes, hypertension, hypercholesterolemia and end-stage renal disease on dialysis. She is dialyzed on Monday, Monday and Monday. There is history of anxiety. Physical Examination: Vital signs noted. Pulse ox is marginal. Blood pressure is 154/120. BMI is 31.8. Head is atraumatic normocephalic. Pupils are equal round reactive. Extraocular muscles are intact. TMs are pearly white with landmarks noted. Nares patent with no drainage. Posterior pharynx without erythema or exudate. Uvula is midline. There is no dysphonia or dysphasia. Trachea is midline. There is no stridor with auscultation of the neck. Heart is regular without murmur, gallop or rub. Lungs reveal rales bilaterally. Abdomen is soft with tenderness in the epigastric area. Negative Escalante sign. No guarding rebound tenderness. There is no CVA tenderness noted. There is 1+ edema lower extremity. She appears pale. Neuro exam is nonfocal. Test Results: H&H 7.7 and 36.5. BUN and creatinine are 62 and 7.59. Troponin is 0.127. All troponin levels have been elevated in the past. Suspect this is secondary to her renal failure and fluid overloaded state secondary to congestive heart failure as well as end-stage renal disease. EKG with a sinus rhythm rate of [address]-T wave changes that are unchanged. WA interval and QRS duration normal. QT interval is prolonged. Emergency Department Course and Treatment: Since patient has epigastric pain belching excessively GI cocktail was obtained and her symptoms resolved. Treatment Plan: Discharge dialysis since she is clinically fluid overloaded Disposition: Discharge dialysis Impression: 1. CHF/fluid over load state secondary to CHF and end-stage renal disease 2. Gastritis without evidence of hemorrhage 3. Anemia of chronic illness 4. Persistent elevated troponin 5. Type 1 diabetes 6. History of hypertension 7. History of hypercholesterolemia This note was generated with Buzzooleation software. It may contain incorrect words, spelling, and punctuation that were not noted in review of the chart prior to signing ED Disposition - Plan for ED Patient: Disposition: Home or Assisted Living Instructions: ED CHF Left Side, ED Gastritis Referrals: Christopher Foy MD [Primary Care Provider] - As Needed
[2018-09-04 12:36] LABS: Anisocytosis 1+; Differential Comment SCANNED; Polychromasia RARE
[2018-09-04 12:43] VITALS: BP 122/85; PULSE 86; RESP 26; TEMP 36.8; O2SAT 94
--- NOTE | 2018-09-04 12:45 | ED.RN ---
CALLED WILL AT DIALYSIS, WILL STATES THEY CAN FIT PT BACK INTO SCHEDULE FOR DIALYSIS TODAY. PT CAME TO ED VIA [facility]. THIS RN CALLED [facility]QUESTING TRANSPORT FROM ED TO DIALYSIS. ETA [id number]. DIALYSIS AWARE. PT AWARE AND IS IS OK WITH PLAN. THIS RN EXPLAINS SHE IS MORE THAN WELCOME TO STAY IN HER ED ROOM UNTIL RIDE ARRIVES. PT VERBALIZES WANTING TO WAIT IN WAITING ROOM FOR RIDE. PT DENIES NEEDING ANY HELP WITH BELONGINGS OR WHEELCHAIR
== END 2018-09-04 12:53 | disposition home or self-care (01) ==
PROVIDERS: Emergency Provider Emergency Medicine; Family Provider Family Medicine; PCP Family Medicine
DX: E10.22 Type 1 diabetes mellitus with diabetic chronic kidney disease (principal); I13.2 Hypertensive heart and chronic kidney disease with heart failure and with stage 5 chronic kidney disease, or end stage renal disease; I50.9 Heart failure, unspecified; N18.6 End stage renal disease; Z99.2 Dependence on renal dialysis; K29.70 Gastritis, unspecified, without bleeding; D63.8 Anemia in other chronic diseases classified elsewhere; R79.89 Other specified abnormal findings of blood chemistry; E78.00 Pure hypercholesterolemia, unspecified; I25.10 Atherosclerotic heart disease of native coronary artery without angina pectoris; F41.9 Anxiety disorder, unspecified; F32.9 Major depressive disorder, single episode, unspecified; E66.9 Obesity, unspecified; Z68.31 Body mass index [BMI] 31.0-31.9, adult; Z95.5 Presence of coronary angioplasty implant and graft; Z79.82 Long term (current) use of aspirin; Z79.02 Long term (current) use of antithrombotics/antiplatelets; Z79.4 Long term (current) use of insulin; Z79.899 Other long term (current) drug therapy; Z72.0 Tobacco use
CPT/HCPCS: 71046; 80048; 84484; 85025; 93005; 99282; A4216

== ENCOUNTER 2018-10-01 18:26 | Inpatient (IN) | payer MEDICARE, MEDICAID, SELFPAY ==
[2018-10-01 18:39] VITALS: BP 129/76; PULSE 87; RESP 18; TEMP 36.6; O2SAT 96
[2018-10-01 18:41] VITALS: BMI 32.1
--- NOTE | 2018-10-01 18:46 | EKG12_ITS ---
Test Reason : CP ADMISSION Blood Pressure : / mmHG Vent. Rate : 083 BPM Atrial Rate : 083 BPM P-R Int : 126 ms QRS Dur : 090 ms QT Int : 396 ms P-R-T Axes : 034 056 222 degrees QTc Int : 465 ms Normal sinus rhythm Anterior infarct , age undetermined T wave abnormality, consider inferior ischemia Abnormal ECG Confirmed by DIVINA BEASLEY, SUSI ([id number]), scientific editor LISBETH KIDD ([id number]) on 10/05/2018 9:39:12 AM Referred By: Alireza Kulkarni Confirmed By:SUSI MURCIA MD
[2018-10-01 18:54] VITALS: BMI 32.2
[2018-10-01 19:00] VITALS: PULSE 82
--- NOTE | 2018-10-01 19:06 | PCM.HP.STD ---
Problem List (1) COPD exacerbation Status: Acute (2) Right lower lobe pneumonia Status: Acute (3) Cellulitis Status: Resolved Qualifiers: (4) CAD (coronary artery disease) Status: Chronic Qualifiers: (5) Nausea & vomiting Status: Resolved (6) Stented coronary artery Status: Chronic Comment: FFR of LAD 0.82; VIKY of mid LAD with 2.5 X 24 mm Promus Synergy, OM <50% stenosis per Dr. Magdaleno @ [facility] (7) Atherosclerotic heart disease of [place] coronary artery without angina pectoris Status: Chronic Qualifiers: Comment: S/P PTCA/VIKY to mid LAD in February 2018 OM #1 noted to be 50%; (8) Migraine Status: Resolved Qualifiers: (9) Metabolic encephalopathy Status: Resolved (10) Abnormal electrocardiogram [ECG] [EKG] Status: Inactive (11) Chest pain Status: Acute Qualifiers: (12) Tooth abscess Status: Resolved (13) Intractable nausea and vomiting Status: Resolved Qualifiers: (14) Pneumonia Status: Resolved (15) ESRD (end stage renal disease) on dialysis Status: Chronic (16) Pulmonary edema Status: Resolved (17) Hyperkalemia Status: Resolved (18) Atypical chest pain Status: Resolved (19) Acute hypoxic respiratory failure Status: Resolved (20) Pulmonary edema Status: Resolved (21) Decubitus ulcer, stage III Status: Chronic (22) Clostridium difficile enterocolitis Status: Resolved (23) 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 (24) Anemia, chronic disease Status: Chronic (25) Pilonidal cyst with abscess Status: Chronic (26) GABRIEL (obstructive sleep apnea) Status: Chronic (27) Depression Status: Chronic Qualifiers: (28) Anxiety Status: Chronic (29) HTN (hypertension) Status: Chronic Qualifiers: (30) Nonischemic cardiomyopathy Status: Chronic Comment: EF 45% per echo 07/01/2018 (31) S/P repair of PDA (patent ductus arteriosus) Status: Chronic Comment: At young age (30) Diabetes mellitus type 1 Status: Chronic Qualifiers: (33) Hyperlipidemia Status: Chronic Qualifiers: (34) Obesity (BMI 30.0-34.9) Status: Chronic (35) Gastroparesis Status: Chronic History of Present Illness Date of Admission: 10/01/18 Chief Complaint: Chest pain The patient is a 42 year old F with multiple comorbidities including COPD, obstructive sleep apnea with chronic hypoxic respiratory failure on 2 L of home oxygen directly admitted in PCU from [facility] ER where she came for chest pain. Patient had midsternal chest pain localized since yesterday evening. She is also shortness of breath along with flulike symptoms, fever chills cough for last 3 days. Patient feels like chest heaviness lasted for whole night until she went to ED today but has resolved now. Chest x-ray done in ER shows fairly linear right basilar airspace disease may represent atelectasis or infiltrate. Persistent prominent interstitial markings bilaterally. Twelve-lead EKG shows normal sinus rhythm with borderline R wave progression. QTc interval 490 ms. She has a history of bilateral hidradenitis suppurativa and she had diverting colostomies prior to groin surgery by Dr. Munroe. She follows [facility] for ESRD on hemodialysis. Patient had dialysis yesterday. Basic blood work in [facility] ER shows WBC 5000, H&H 9.8/30, platelet count 140,000. BMP shows BUN 60, creatinine 6.66, glucose 299. Electrolytes are within normal limits, sodium 140, K4.1, chloride 100, bicarb 26. Troponin elevated 0.506. ProBNP more than 35,000. [] Past Medical History Past Medical History (Chronic Problems): Chronic Problems (Last Reviewed 07/27/18 @ 11:56 by Pricila Olson) CAD (coronary artery disease) (Chronic) Stented coronary artery (Chronic 02/26/18) FFR of LAD 0.82; VIKY of mid LAD with 2.5 X 24 mm Promus Synergy, OM <50% stenosis per Dr. Magdaleno @ [facility] Atherosclerotic heart disease of [place] coronary artery without angina pectoris (Chronic) S/P PTCA/VIKY to mid LAD in February 2018 OM #1 noted to be 50%; ESRD (end stage renal disease) on dialysis (Chronic) Decubitus ulcer, stage III (Chronic) Anemia, chronic disease (Chronic) Pilonidal cyst with abscess (Chronic) GABRIEL (obstructive sleep apnea) (Chronic) Depression (Chronic) Anxiety (Chronic) HTN (hypertension) (Chronic) Nonischemic cardiomyopathy (Chronic) EF 45% per echo 07/01/2018 S/P repair of PDA (patent ductus arteriosus) (Chronic) At young age Diabetes mellitus type 1 (Chronic) Hyperlipidemia (Chronic) Obesity (BMI 30.0-34.9) (Chronic) Gastroparesis (Chronic) Medical History: Medical History (Last Reviewed 07/27/18 @ 11:56 by Pricila Olson) Atherosclerotic heart disease of [place] coronary artery without angina pectoris (Chronic) I25.10 S/P PTCA/VIKY to mid LAD in February 2018 OM #1 noted to be 50%; ESRD (end stage renal disease) on dialysis (Chronic) N18.6, Z99.2 Decubitus ulcer, stage III (Chronic) L89.93 Anemia, chronic disease (Chronic) D63.8 Pilonidal cyst with abscess (Chronic) L05.01 GABRIEL (obstructive sleep apnea) (Chronic) G47.33 HTN (hypertension) (Chronic) I10 Nonischemic cardiomyopathy (Chronic) I42.8 EF 45% per echo 07/01/2018 Diabetes mellitus type 1 (Chronic) Hyperlipidemia (Chronic) E78.5 Obesity (BMI 30.0-34.9) (Chronic) E66.9 Gastroparesis (Chronic) K31.84 Allergies latex Allergy (Verified 08/09/18 13:51) Rash prochlorperazine [From Compazine] Allergy (Verified 08/09/18 13:51) Unknown levofloxacin [From Levaquin] Adverse Reaction (Verified 08/09/18 13:51) PT CAN'T REMEMBER PT CAN'T REMEMBER metoclopramide HCl [From Reglan] Adverse Reaction (Verified 08/09/18 13:51) Nausea NSAIDS (Non-Steroidal Anti-Inflamma Adverse Reaction (Verified 08/09/18 13:51) kidney function oxycodone HCl [From Percocet] Adverse Reaction (Verified 08/09/18 13:51) HALLUCINATIONS Home Medications: Ambulatory Orders Medication Instructions Recorded Aspirin [Aspirin, Baby] 81 mg PO DAILY@0800 01/26/16 Calcium Acetate [Phoslo Gel Cap] 1,334 mg PO TIDCM 01/26/16 Ergocalciferol [Vitamin D] 50,000 unit PO MO 01/26/16 Insulin Aspart [Novolog Flexpen] 10 units SC TIDCM 01/26/16 Insulin Glargine,Hum.rec.anlog 4 unit SQ QHS 01/09/17 [Lantus] proMETHazine tablet [Phenergan 25 mg PO Q6H PRN PRN #10 tab 03/06/17 tablet] Lisinopril 20 mg PO DAILY 03/29/17 Sodium Bicarbonate 650 mg PO 4X/DAY 03/29/17 Atorvastatin Calcium [Lipitor] 20 mg PO QHS 05/26/18 Carvedilol [Coreg] 25 mg PO BID 05/26/18 Loperamide HCl [Imodium A-D] 2 mg PO TID PRN 05/26/18 Pantoprazole Sodium [Protonix] 20 mg PO BID 05/26/18 Clopidogrel Bisulfate [Plavix] 75 mg PO DAILY 07/01/18 Albuterol Aerosols [Ventolin 2.5 mg INHALATION Q2H PRN PRN #30 07/03/18 Aerosols] vial.neb. Lidocaine/Prilocaine HCl [Emla 1 applicatio TOPICAL X1 #1 tube 07/03/18 Cream W/Tegaderm] ALPRAZolam [Xanax] 0.5 mg PO PRN PRN 08/09/18 Acetaminophen 650 mg PO PRN PRN 08/09/18 B Complex W-C No.20/Folic Acid 1 mg PO DAILY 08/09/18 [Nephrocaps Softgel] Fluoxetine HCl 40 mg PO DAILY 08/09/18 Hydroxyzine HCl 50 mg PO TUTHSA 08/09/18 Isosorbide Mononitrate [Imdur] 60 mg PO DAILY 08/09/18 Acetaminophen [Tylenol Tablet] 650 mg PO Q6H PRN PRN tablet 08/11/18 Amoxicillin/Potassium Clav 1 each PO DAILY #5 tablet 08/11/18 [Augmentin 500-125 Tablet] Doxycycline 100 mg PO BID #10 capsule 08/11/18 Nystatin Powder [Mycostatin Powder] 1 applic TOPICAL BID #1 bottle 08/11/18 Surgical History: Surgical History (Last Reviewed 07/27/18 @ 11:56 by Pricila Olson) Stented coronary artery (Chronic) Onset Date: 02/26/18 Z95.5 FFR of LAD 0.82; VIKY of mid LAD with 2.5 X 24 mm Promus Synergy, OM <50% stenosis per Dr. Magdaleno @ [facility] S/P repair of PDA (patent ductus arteriosus) (Chronic) Z98.890, Z87.74 At young age Surgical History: appendectomy, hysterectomy - and BSO, - - c-sections, L breast I+D for abscess, fistula placement LUE, L ankle surgery, appendectomy, PDA repair. Excision pilonidal cyst ulcer about 4 years ago. Colostomy placed due to rectal abscess/wound, patent ductus repair, drug-eluting stent placement left anterior descending coronary artery February 2018. Smoking Status: Current some day smoker - *Family History Maternal History Items: Cancer, COPD, Diabetes, Hypertension, Renal Disease, Stroke Paternal History Items: Diabetes Sibling History Items: Cancer, Diabetes Review of Systems Constitutional: Reports: Chills, Fever, Malaise, Weakness. Denies: Weight Change HEENT: Reports: Sinus Congestion. Denies: Sinus Drainage Cardiovascular: Reports: Chest Pain, Chest Pressure, Chest Tightness. Denies: Palpitations Respiratory: Reports: Cough, Shortness of Breath, Sputum production, Wheezing. Denies: Shortness of breath at rest Gastrointestinal: Reports: - - Colostomy. Denies: Abdominal Pain, Nausea, Vomiting Genitourinary: Denies: Dysuria Musculoskeletal: Reports: Joint Pain. Denies: Joint Tenderness Skin: Denies: Rash, Wounds Neurological: Denies: Numbness, Tingling, Focal weakness Psychiatric: Denies: Anxiety, Depression, Homicidal Ideations, Suicidal Ideations Hematologic/ Lymphatic: Denies: Easy Bruising, Easy Bleeding VTE Information - Inpt Only VTE Present on Admission: No VTE Mechan Device Prophylaxis: None VTE Pharm Prophylaxis ordered?: Yes Patient Problems: Active and Suspected Problems (Last Reviewed 07/27/18 @ 11:56 by Pricila Olson) COPD exacerbation (Acute) Right lower lobe pneumonia (Acute) - Physical Exam General: Alert, Oriented x3, Cooperative HEENT: Atraumatic, PERRLA, EOMI, Normocephalic Neck: Supple, No JVD, Negative Carotid Bruits Lungs: Diminished - Air entry is diminished bilaterally, Rhonchi Cardiovascular: Regular rate, Regular Rhythm, Normal S1, Normal S2, No murmurs Abdomen: Bowel Sounds Present, Soft, Non Tender, Non-Distended, - - Colostomy present. Extremities: No edema, Capillary Refill Less than 3 Seconds Skin: No rashes, No breakdown Musculoskeletal: No Tenderness to Palpation of Joints or Extremities, Arthritic Changes Neurological: Cranial nerves II-XII grossly intact Psych/Mental Status: Normal Affect, Appropriate Vital Signs Temp Pulse Resp BP Pulse Ox 97.9 F 87 18 129/76 H 96 10/01/18 18:39 10/01/18 18:39 10/01/18 18:39 10/01/18 18:39 10/01/18 18:39 Oxygen Flow Rate (L/min) 2 Oxygen Delivery Method Nasal Cannula Weight: 199 lb 4.766 oz Body Mass Index (BMI) 32.1 Finger Stick Blood Glucose 118 Assessment/Plan All Active Problems (Last Reviewed 07/27/18 @ 11:56 by Pricila Olson) Cellulitis (Resolved) COPD exacerbation (Acute) Right lower lobe pneumonia (Acute) Nausea & vomiting (Resolved) Migraine (Resolved) Metabolic encephalopathy (Resolved) Chest pain (Acute) Tooth abscess (Resolved) Intractable nausea and vomiting (Resolved) Pneumonia (Resolved) Pulmonary edema (Resolved) Hyperkalemia (Resolved) Atypical chest pain (Resolved) Acute hypoxic respiratory failure (Resolved) Pulmonary edema (Resolved) Clostridium difficile enterocolitis (Resolved) Necrotizing myositis (Resolved) Dysmenorrhea (Resolved) Hx of necrotizing fascIItis (Resolved) Iron deficiency anemia due to chronic blood loss (Resolved) Systolic congestive heart failure (Resolved) The patient is a 42 year old F with multiple comorbidities including COPD, obstructive sleep apnea with chronic hypoxic respiratory failure on 2 L of home oxygen directly admitted in PCU from [facility] ER where she came for chest pain. Patient had midsternal chest pain localized since yesterday evening. She is also shortness of breath along with flulike symptoms, fever chills cough for last 3 days. Patient feels like chest heaviness lasted for whole night until she went to ED today but has resolved now. Chest x-ray done in ER shows fairly linear right basilar airspace disease may represent atelectasis or infiltrate. Persistent prominent interstitial markings bilaterally. Twelve-lead EKG shows normal sinus rhythm with borderline R wave progression. QTc interval 490 ms. She has a history of bilateral hidradenitis suppurativa and she had diverting colostomies prior to groin surgery by Dr. Munroe. She follows [facility] for ESRD on hemodialysis. Patient had dialysis yesterday. Basic blood work in [facility] ER shows WBC 5000, H&H 9.8/30, platelet count 140,000. BMP shows BUN 60, creatinine 6.66, glucose 299. Electrolytes are within normal limits, sodium 140, K4.1, chloride 100, bicarb 26. Troponin elevated 0.506. ProBNP more than 35,000. 1. Atypical chest pain unclear pleuritic/cardiac: Patient is being admitted in PCU. Serial cardiac enzymes. Stress echo tomorrow morning the patient has history of COPD. 2. COPD: Patient does not seem to be very short of breath or in respiratory distress. DuoNeb every 6 hourly. Incentive spirometry and chest physiotherapy. Mucinex 1200 mg twice daily 3. Possible right lower lobe pneumonia/atelectasis: Patient was given Rocephin and Zithromax and [facility] that was found when patient came here but was not told about chest x-ray finding or pneumonia during transfer call. Repeat chest x-ray PA and lateral tomorrow a.m. Continue Rocephin and Zithromax. Pneumonia workup. 4. ESRD on hemodialysis: BMP tomorrow morning. [facility] consult. 5. Other comorbidities include hidradenitis redness status post surgery and colostomy: Patient was supposed to follow-up Dr. Dill next week for closure of colostomy. Can follow-up as an outpatient. DVT prophylaxis: Heparin 5000 units subcutaneous twice daily Code Visit Inpatient E&M: 92214 Init Hosp L3
[2018-10-01] MEDS: Morphine 2 MG/ML Syringe IV (20:41)
[2018-10-01] MEDS: proMETHazine 25 MG/ML Syringe 12.5 MG IV (20:41)
[2018-10-01 20:45] VITALS: PULSE 94; RESP 27; O2SAT 94
[2018-10-01] MEDS: Ipratropium/Albuterol Sulfate 3 ML AMPUL.NEB INHALATION (20:45)
[2018-10-01] MEDS: Budesonide Respules 0.5 MG/2 ML AMPUL.NEB. INHALATION (20:45)
[2018-10-01 21:00] LABS: BNP,B-Type NATRIURETIC PEPTIDE 2619.7 pg/mL (0-100)
[2018-10-01] MEDS: Ceftriaxone 1 GM/50 ML BAG IV (21:09)
[2018-10-01] MEDS: Heparin Injection (Vial) 5,000 UNIT/ML VIAL 5000 UNIT SC (21:12)
[2018-10-01] MEDS: guaiFENesin 1,200 MG Tablet 1200 MG PO (21:12)
[2018-10-01] MEDS: Atorvastatin Calcium 40 MG Tablet PO (21:12)
[2018-10-01] MEDS: 0.9% NaCl Peripheral Flush Adult/Peds IV ×2 (21:13→21:15)
[2018-10-01 23:00] VITALS: BP 117/64; PULSE 87; PULSE 92; RESP 20; TEMP 36.6; O2SAT 97
[2018-10-01] MEDS: Insulin Lispro 100 UNIT/ML INSULN.PEN SC (23:42)
[2018-10-01] MEDS: Insulin Lispro 100 UNIT/ML INSULN.PEN SQ (23:44)
[2018-10-01] MEDS: Zolpidem Tartrate 5 MG Tablet PO (23:58)
[2018-10-02] VITALS (15 sets, daily range): BP systolic 120–138; BP diastolic 72–96; PULSE 74–101; RESP 14–30; TEMP 36.6–36.8; O2SAT 94–99
[2018-10-02 00:46] LABS: Bedside Glucose 366 mg/dL (70-110)
[2018-10-02] MEDS: Ipratropium/Albuterol Sulfate 3 ML AMPUL.NEB INHALATION ×3 (01:37→13:20)
[2018-10-02] MEDS: proMETHazine 25 MG/ML Syringe 12.5 MG IV ×3 (02:14→22:11)
[2018-10-02] MEDS: 0.9% NaCl Peripheral Flush Adult/Peds IV ×6 (02:15→22:11)
[2018-10-02 02:26] LABS: Bedside Glucose 129 mg/dL (70-110)
[2018-10-02 02:50] LABS: Absolute Lymphocyte Count 1.02 X10^3/ul (0.83-4.51); Absolute Neutrophil Count 4.9 X10^3/uL (2.0-7.7); Basophil# 0.01 X10^3/uL; Basophil% 0.2 % (0-1); Eosinophil# 0.22 X10^3/uL; Eosinophils% 3.4 % (0-5); Hematocrit 31.2 % (37-47); Hemoglobin 9.3 g/dl (12.0-15.0); Lymphocyte # 1.02 X10^3/ul (4.0); Lymphocyte % 15.8 % (19-41); Mean Corp Hgb Conc 29.8 g/gl (32-36); Mean Corpuscular Hgb 30.2 pg (27.0-32.0); Mean Corpuscular Volume 101.3 fL (81-99); Mean Platelet Vol. 9.4 fl (6.2-12.0); Monocyte# 0.26 X10^3/uL; Neutrophil # 4.88 X10^3/uL (2.7-7.7); Neutrophil % 75.8 % (47-70); Platelet Count 136 K/mm3 (150-450); RBC Distribution Width CV 17.1 % (11.6-14.6); RBC Distribution Width SD 62.4 fl (35.1-43.9); Red Blood Count 3.08 M/mm3 (4.2-5.4); White Blood Count 6.4 K/mm3 (4.4-11.0)
[2018-10-02 02:52] LABS: POSITIVE COUNT NO; POSITIVE DIFFERENTIAL NO; POSITIVE MORPHOLOGY NO
[2018-10-02 03:17] LABS: ALB/GLOB Ratio 0.6 RATIO (0.9-2.4); AST(SGOT) 16 U/L (15-37); Alanine Aminotransfer ALT/SGPT 22 U/L (13-56); Albumin, Serum 2.6 g/dL (3.2-5.0); Alkaline Phosphatase 114 U/L (45-117); Anion Gap 12 (5-15); BUN 66 mg/dL (7-18); BUN/Creat Ratio 9.2 RATIO (10-20); Calcium,Total 8.6 mg/dL (8.5-10.1); Chloride 100 mmol/L (98-107); Cholesterol 85 mg/dL (200); Creatinine, Serum 7.19 mg/dL (0.55-1.02); EST Glomerular Filtration Rate 7 mL/min (>60); Est Glom Filt Rate - Afr Amer 8 mL/min (>60); Estimated Creatinine Clearance 9.35 ml/min; Globulin 4.3 g/dL (2.2-4.2); Glucose 123 mg/dL (74-106); High Density Lipoprotein 34 mg/dL; Potassium 4.6 mmol/L (3.5-5.1); Protein, Total 6.9 g/dL (6.4-8.2); Sodium Level 137 mmol/L (136-145); Thyroid Stim Hormone (TSH) 1.78 uIU/mL (0.358-3.74); Triglycerides 87 mg/dL; Very Low Density Lipoprotein 17 mg/dL (5-40)
--- NOTE | 2018-10-02 05:55 | EKG12_ITS ---
Test Reason : AM EKG Blood Pressure : / mmHG Vent. Rate : 095 BPM Atrial Rate : 095 BPM P-R Int : 118 ms QRS Dur : 088 ms QT Int : 372 ms P-R-T Axes : 054 057 214 degrees QTc Int : 467 ms Normal sinus rhythm ST & T wave abnormality, consider inferior ischemia Prolonged QT Abnormal ECG When compared with ECG of 01-OCT-2018 20:27, MANUAL COMPARISON REQUIRED, DATA IS UNCONFIRMED Confirmed by DIVINA BEASLEY, SUSI ([id number]), book or script editor LISBETH KIDD ([id number]) on 10/05/2018 9:35:20 AM Referred By: Alireza Kulkarni Confirmed By:SUSI MURCIA MD
--- NOTE | 2018-10-02 05:55 | RAD_ITS ---
STUDY: X-RAY CHEST REASON FOR EXAM: Female, 42 years old. Shortness of breath. TECHNIQUE: PA and lateral views of the chest. COMPARISON: Comparison is made with prior study dated October 01, 2018. FINDINGS: EKG electrodes are seen. Diffuse bilateral interstitial infiltrates with areas of confluence of the lung bases. There has been essentially no change. There is no demonstrated pleural abnormality. Normal size heart. Normal mediastinum and latrell. Normal visualized pulmonary arteries. Normal visualized aortic arch and descending thoracic aorta. There are diffuse degenerative changes of the visualized thoracic spine. Healed left rib fractures. There is no demonstrated abnormality of the visualized soft tissue structures of the upper abdomen. RAD/Chest PA and Lateral IMPRESSION: Stable diffuse bilateral interstitial infiltrates worse at the lung bases. Electronically Signed: Josh Hill, at 9:25 EDT , Service support ,
[2018-10-02 06:05] LABS: International Normalized Ratio 1.3; Partial Thromboplast Time 30.7 Seconds (24.1-36.2); Prothrombin Time (Protime)PT. 16.2 SECONDS (11.7-14.9)
[2018-10-02] MEDS: Lisinopril 20 MG Tablet PO (06:19)
[2018-10-02] MEDS: Clopidogrel Bisulfate 75 MG Tablet PO (06:19)
[2018-10-02] MEDS: Aspirin 81 MG TAB.CHEW PO (06:19)
[2018-10-02 07:00] LABS: Bedside Glucose 101 mg/dL (70-110)
--- NOTE | 2018-10-02 09:44 | NURSING ---
Colostomy appliance intact to the left abdomen. pt states she takes care of emptying and changing the appliances. denies needs at this time.
--- NOTE | 2018-10-02 11:09 | NURSING ---
wound photo: gluteal cleft
[2018-10-02 11:28] LABS: Color, Urine Yellow (Yellow); Glucose, Dipstick 250 mg/dl (Normal); Ketone-Dipstick Negative (Negative); Leukocyte Esterase-Dipstick 100 /ul (Negative); Nitrite-Dipstick Negative (Negative); Occult Blood-Urine 25 /ul (Negative); Protein-Dipstick 500 mg/dl (Negative); Specific Gravity, Urine 1.015 (1.002-1.030); Urine Bilirubin Dipstick Negative (Negative); Urine Clarity Sl. Cloudy (Clear); Urine Urobilinogen Normal (Normal)
[2018-10-02] MEDS: guaiFENesin 1,200 MG Tablet 1200 MG PO ×2 (12:23→21:30)
[2018-10-02] MEDS: Pantoprazole Sodium 20 MG Tablet PO ×2 (12:23→21:30)
[2018-10-02] MEDS: Sodium Bicarbonate 650 MG Tablet PO ×4 (12:23→21:30)
[2018-10-02] MEDS: Isosorbide Mononitrate 60 MG Tablet PO (12:24)
[2018-10-02] MEDS: Carvedilol 25 MG Tablet PO ×2 (12:24→21:31)
[2018-10-02] MEDS: Calcium Acetate 667 MG Capsule 1334 MG PO ×2 (12:24→17:37)
[2018-10-02] MEDS: FLUoxetine 20 MG Capsule PO (12:25)
[2018-10-02] MEDS: Folic Acid/Vitamin B Comp W-C 1 Capsule 1 CAP PO (12:25)
[2018-10-02 12:30] LABS: Bedside Glucose 154 mg/dL (70-110)
--- NOTE | 2018-10-02 12:34 | CASEMGMT ---
Fidencio at [facility] aware of pt admission. Pt is on a T,Th,Sat 1120 chair time. Monik TEJADA CM
[2018-10-02] MEDS: Budesonide Respules 0.5 MG/2 ML AMPUL.NEB. INHALATION (13:21)
[2018-10-02] MEDS: Acetaminophen 325 MG Tablet 650 MG PO ×2 (13:32→21:14)
--- NOTE | 2018-10-02 13:40 | PCM.PN.HOSP ---
Patient Problems: Active and Suspected Problems (Last Reviewed 07/27/18 @ 11:56 by Pricila Olson) COPD exacerbation (Acute) Right lower lobe pneumonia (Acute) Subjective: Patient seen and examined. She was admitted with a complaint of chest pain. She has no complaints now, but feels quite lethargic. He denies any fever, chills, cough, palpitations, dizziness, abdominal pain, diarrhea or vomiting. Review of systems was otherwise negative. Labs and vitals reviewed. Vitals/I&O's: Vital Signs Temp Pulse Resp BP Pulse Ox 97.9 F 87 18 124/76 H 99 10/02/18 09:20 10/02/18 09:20 10/02/18 09:20 10/02/18 09:20 10/02/18 09:20 Oxygen Flow Rate (L/min) 2 Oxygen Delivery Method Nasal Cannula Weight: 199 lb 4.766 oz Body Mass Index (BMI) 32.1 Finger Stick Blood Glucose 118 Intake and Output for Last 24 Hours 09/30/18 10/01/18 10/02/18 23:59 23:59 23:59 Intake Total 342 / 342 Output Total 100 / 100 Balance 342 / 342 -100 / -100 General: Alert, Oriented x3, Cooperative, No apparent distress HEENT: Atraumatic, PERRLA, EOMI, Normocephalic Oral: Moist Mucosa Neck: Supple, No JVD, Negative Carotid Bruits Lungs: Clear to auscultation, Normal air movement, No rhonchi, No wheeze, No rales Cardiovascular: Regular rate, Regular Rhythm, Normal S1, Normal S2, No murmurs Abdomen: Bowel Sounds Present, Soft, Non Tender, Non-Distended, No Hepato-splenomegaly Extremities: No clubbing, No cyanosis, No edema, Capillary Refill Less than 3 Seconds Skin: No rashes, No breakdown Musculoskeletal: No Tenderness to Palpation of Joints or Extremities, - - LUE AV fistula with a good thrill Lymphatic: No Cervical, Supraclavicular, or Inguinal Adenopathy Neurological: Cranial nerves II-XII grossly intact, Neuro grossly intact, Motor Exam 5/5 strength throughout Psych/Mental Status: Normal Affect, Appropriate, Alert and oriented to time, place, person, mood and affect Microbiology Past 72 Hours 10/01/18 20:30 Mucosa - Nasopharyngeal Respiratory Panel (PCR) - Final Influenza A (Subtype H3) 10/02/18 02:05 Urine, Clean Catch Legionella Antigen - Final 10/02/18 02:05 Urine, Clean Catch Streptococcus pneumoniae Antigen (M - Final 10/01/18 23:47 Stool Stool Occult Blood (SCARLET) - Final Occult Blood Positive Laboratory Results 10/01/18 20:02: B-Natriuretic Peptide 2619.7 H 10/01/18 20:02: Troponin I 0.491 H 10/01/18 22:24: POC Glucose 366 H 10/01/18 22:52: Troponin I 0.377 H 10/02/18 02:05: Urine Color Yellow, Urine Clarity Sl. Cloudy, Urine pH 6.0, Ur Specific [place] 1.015, Urine Protein 500 H, Urine Glucose (UA) 250 H, Urine Ketones Negative, Urine Occult Blood 25 H, Urine Nitrite Negative, Urine Bilirubin Negative, Urine Urobilinogen Normal, Ur Leukocyte Esterase 100 H 10/02/18 02:09: POC Glucose 129 H 10/02/18 02:14: WBC 6.4, RBC 3.08 L, Hgb 9.3 L, Hct 31.2 L, MCV 101.3 H, MCH 30.2, MCHC 29.8 L, RDW 17.1 H, RDW Differential 62.4 H, Plt Count 136 L, MPV 9.4, Immature Gran % (Auto) 0.800, Neut % (Auto) 75.8 H, Lymph % (Auto) 15.8 L, [place] % (Auto) 4.0, Eos % (Auto) 3.4, Baso % (Auto) 0.2, Absolute Neuts (auto) 4.9, Absolute Lymphs (auto) 1.02, Total Counted Not Reportable 10/02/18 02:14: Sodium 137, Potassium 4.6, Chloride 100, Carbon Dioxide 25.0, Anion Gap 12, BUN 66 H, Creatinine 7.19 H, Estim Creat Clear Calc 9.35, Est GFR (MDRD) Af Amer 8 L, Est GFR (MDRD) Non-Af 7 L, BUN/Creatinine Ratio 9.2 L, Glucose 123 H, Calcium 8.6, Total Bilirubin 0.40, AST 16, ALT 22, Alkaline Phosphatase 114, Troponin I 0.399 H, Total Protein 6.9, Albumin 2.6 L, Globulin 4.3 H, Albumin/Globulin Ratio 0.6 L, Triglycerides 87, Cholesterol 85, LDL Cholesterol 34, VLDL Cholesterol 17, HDL Cholesterol 34 L, TSH 1.78 10/02/18 02:14: Troponin I Cancelled 10/02/18 05:20: PT 16.2 H, INR 1.3, APTT 30.7 10/02/18 06:24: POC Glucose 101 10/02/18 12:19: POC Glucose 154 H Current Medications Acetaminophen (Tylenol) 650 mg PO Q4H PRN PRN PRN Reason: Mild-Mod Pain/Headache,Fever Last Admin: 10/02/18 13:32 Dose: 650 mg Albuterol/Ipratropium (Duoneb) 3 ml INHALATION Q6H.RT [facility] Last Admin: 10/02/18 13:20 Dose: 3 ml Alprazolam (Xanax) 0.5 mg PO TID PRN PRN PRN Reason: ANXIETY Aspirin (Aspirin, Baby) 81 mg PO DAILY@0800 [facility] Last Admin: 10/02/18 06:19 Dose: 81 mg Atorvastatin Calcium (Lipitor) 20 mg PO QHS [facility] Budesonide (Pulmicort Aerosol) 0.5 mg INHALATION BID.RT [facility] Last Admin: 10/02/18 13:21 Dose: 0.5 mg Calcium Acetate (Phoslo Gel Cap) 1,334 mg PO TIDCM [facility] Last Admin: 10/02/18 12:24 Dose: 1,334 mg Carvedilol (Coreg) 25 mg PO BID [facility] Last Admin: 10/02/18 12:24 Dose: 25 mg Clopidogrel Bisulfate (Plavix) 75 mg PO DAILY [facility] Last Admin: 10/02/18 06:19 Dose: 75 mg Dextrose (D50w Syringe) 0 gm IV X1 PRN; Protocol PRN Reason: Hypoglycemia Docusate Sodium (Colace) 200 mg PO BID PRN PRN PRN Reason: Constipation Ergocalciferol (Vitamin D) 50,000 unit PO MO [place] Fluoxetine HCl (Prozac) 20 mg PO DAILY [facility] Last Admin: 10/02/18 12:25 Dose: 20 mg Glucagon () 1 mg IM .X1 PRN PRN Reason: Hypoglycemia Guaifenesin (Mucinex) 1,200 mg PO BID [facility] Last Admin: 10/02/18 12:23 Dose: 1,200 mg Heparin Sodium (Porcine) (Heparin Na) 5,000 unit SC BID [facility] Last Admin: 10/02/18 13:24 Dose: Not Given Azithromycin 500 mg/ Dextrose 255 mls @ 250 mls/hr IV Q24H [facility] Last Admin: 10/01/18 21:09 Dose: 250 mls/hr Ceftriaxone Sodium (Rocephin) 1 gm in 50 mls @ 100 mls/hr IV Q24H [facility] Last Admin: 10/01/18 21:09 Dose: 100 mls/hr Insulin Glargine (Lantus (Bkc)) 4 units SC QHS [place] Insulin Human Lispro (Humalog Kwikpen (Bkc)) 10 unit SC TIDAC [facility] Last Admin: 10/02/18 12:21 Dose: Not Given Insulin Human Lispro (Humalog Kwikpen (Bkc)) 4 unit SC X1 ONE Stop: 10/02/18 23:23 Last Admin: 10/01/18 23:42 Dose: 4 u Insulin Human Lispro (Humalog Kwikpen (Bkc)) 0 unit SQ ACHS & 3AM [facility]; Protocol Last Admin: 10/02/18 12:21 Dose: Not Given Isosorbide Mononitrate (Imdur) 60 mg PO DAILY [facility] Last Admin: 10/02/18 12:24 Dose: 60 mg Lisinopril (Zestril) 20 mg PO DAILY [facility] Last Admin: 10/02/18 06:19 Dose: 20 mg Loperamide HCl (Imodium) 2 mg PO TID PRN PRN PRN Reason: STOOLING Morphine Sulfate () 1 - 2 mg IV Q4H PRN PRN PRN Reason: SEVERE PAIN (6-10/10) Last Admin: 10/01/18 20:41 Dose: 2 mg Multivit/Ca Carb/B Cmplx/FA/Prenat (Nephrocaps, Renaphro) 1 capsule PO DAILY [facility] Last Admin: 10/02/18 12:25 Dose: 1 capsule Nitroglycerin (Nitrostat) 0.4 mg SUBLINGUAL Q5M PRN PRN Reason: CHEST PAIN Nystatin (Mycostatin Powder) 1 applic TOPICAL BID [facility]; Protocol Last Admin: 10/02/18 12:24 Dose: Not Given Pantoprazole Sodium (Protonix) 20 mg PO BID [facility] Last Admin: 10/02/18 12:23 Dose: 20 mg Promethazine HCl (Phenergan) 12.5 mg IV Q4H PRN PRN PRN Reason: NAUSEA/VOMITING Last Admin: 10/02/18 06:27 Dose: 12.5 mg Sodium Bicarbonate (Sodium Bicarbonate) 650 mg PO 4X/DAY [place] Last Admin: 10/02/18 12:23 Dose: 650 mg Sodium Chloride () 5 - 15 ml IV UD PRN PRN Reason: SALINE FLUSH Last Admin: 10/02/18 06:28 Dose: 5 ml Zolpidem Tartrate (Ambien (Generic)) 5 mg PO QHS PRN PRN PRN Reason: SLEEP Last Admin: 10/01/18 23:58 Dose: 5 mg Medical Necessity - Tobacco Use Smoking Status: Current some day smoker Assessment/Plan All Active Problems (Last Reviewed 07/27/18 @ 11:56 by Pricila Olson) Cellulitis (Resolved) COPD exacerbation (Acute) Right lower lobe pneumonia (Acute) Nausea & vomiting (Resolved) Migraine (Resolved) Metabolic encephalopathy (Resolved) Chest pain (Acute) Tooth abscess (Resolved) Intractable nausea and vomiting (Resolved) Pneumonia (Resolved) Pulmonary edema (Resolved) Hyperkalemia (Resolved) Atypical chest pain (Resolved) Acute hypoxic respiratory failure (Resolved) Pulmonary edema (Resolved) Clostridium difficile enterocolitis (Resolved) Necrotizing myositis (Resolved) Dysmenorrhea (Resolved) Hx of necrotizing fascIItis (Resolved) Iron deficiency anemia due to chronic blood loss (Resolved) Systolic congestive heart failure (Resolved) 1. Atypical chest pain chest pain has improved troponins x 3 were mildly elevated: 0.491->0.377->0.399 had stress test today which is pending on po aspirin 81mg daily and SL nitroglycerin prn 2. Influenza infection CXR at [facility] showed fairly linear right basilar airspace disease which may represent atelectasis or infiltrate. CXR official reading is pending; per my review, she has bilateral patchy opacities in mid and lower lung vid[place]. Tested positive for influenza A infection Will start Tamiflu 30 mg with dialysis. on Mucinex 1200mg bid will dc IV rocephin and azithromycin which was started, suspicion of pneumonia. 3. ESRD on hemodialysis: Nephrology on board. For dialysis today. 4. Hidradenitis suppurativa s/pn surgery and diverting colostomy stable to follow up with Dr Zhang on outpatient basis 3. CAD: Carvedilol, atorvastatin, aspirin and Imdur 4. Hypertension: On lisinopril and carvedilol. DVT Prophylaxis: Heparin Code Visit Inpatient E&M: 43612 [facility] Hosp L3
--- NOTE | 2018-10-02 13:47 | PCM.CONS.R ---
Problem List (1) ESRD (end stage renal disease) on dialysis Status: Chronic Consultation - Renal PCP/ Referring MD: Requesting physician: [] Primary care physician: Christopher Foy MD - History of Present Illness History of Present Illness: The patient is a 42 year old F past medical history of end-stage renal disease on Monday schedule for hemodialysis., COPD, chronic respiratory failure. Patient presented with chest pain for 1 day along with shortness of breath chills flulike symptoms and cough for 3 days. Renal team was consulted for end-stage renal disease care. Last hemodialysis was on Monday and it was full session. Patient tested positive for flu. Patient had stress echo this morning. Patient is on Rocephin and azithromycin for pneumonia treatment. Review of system: 12 system review is negative except for cough, shortness of breath and chills [] - Allergies Allergies: Allergies latex Allergy (Verified 08/09/18 13:51) Rash prochlorperazine [From Compazine] Allergy (Verified 08/09/18 13:51) Unknown levofloxacin [From Levaquin] Adverse Reaction (Verified 08/09/18 13:51) PT CAN'T REMEMBER PT CAN'T REMEMBER metoclopramide HCl [From Reglan] Adverse Reaction (Verified 08/09/18 13:51) Nausea NSAIDS (Non-Steroidal Anti-Inflamma Adverse Reaction (Verified 08/09/18 13:51) kidney function oxycodone HCl [From Percocet] Adverse Reaction (Verified 08/09/18 13:51) HALLUCINATIONS - Current Medications Current Medications: Current Medications Acetaminophen (Tylenol) 650 mg PO Q4H PRN PRN PRN Reason: Mild-Mod Pain/Headache,Fever Last Admin: 10/02/18 13:32 Dose: 650 mg Albuterol/Ipratropium (Duoneb) 3 ml INHALATION Q6H.RT [place] Last Admin: 10/02/18 13:20 Dose: 3 ml Alprazolam (Xanax) 0.5 mg PO TID PRN PRN PRN Reason: ANXIETY Aspirin (Aspirin, Baby) 81 mg PO DAILY@0800 [place] Last Admin: 10/02/18 06:19 Dose: 81 mg Atorvastatin Calcium (Lipitor) 20 mg PO QHS [place] Budesonide (Pulmicort Aerosol) 0.5 mg INHALATION BID.RT [place] Last Admin: 10/02/18 13:21 Dose: 0.5 mg Calcium Acetate (Phoslo Gel Cap) 1,334 mg PO TIDCM [facility] Last Admin: 10/02/18 12:24 Dose: 1,334 mg Carvedilol (Coreg) 25 mg PO BID [facility] Last Admin: 10/02/18 12:24 Dose: 25 mg Clopidogrel Bisulfate (Plavix) 75 mg PO DAILY [facility] Last Admin: 10/02/18 06:19 Dose: 75 mg Dextrose (D50w Syringe) 0 gm IV X1 PRN; Protocol PRN Reason: Hypoglycemia Docusate Sodium (Colace) 200 mg PO BID PRN PRN PRN Reason: Constipation Ergocalciferol (Vitamin D) 50,000 unit PO MO [place] Fluoxetine HCl (Prozac) 20 mg PO DAILY [facility] Last Admin: 10/02/18 12:25 Dose: 20 mg Glucagon () 1 mg IM .X1 PRN PRN Reason: Hypoglycemia Guaifenesin (Mucinex) 1,200 mg PO BID [facility] Last Admin: 10/02/18 12:23 Dose: 1,200 mg Heparin Sodium (Porcine) (Heparin Na) 5,000 unit SC BID [facility] Last Admin: 10/02/18 13:24 Dose: Not Given Azithromycin 500 mg/ Dextrose 255 mls @ 250 mls/hr IV Q24H [facility] Last Admin: 10/01/18 21:09 Dose: 250 mls/hr Ceftriaxone Sodium (Rocephin) 1 gm in 50 mls @ 100 mls/hr IV Q24H [facility] Last Admin: 10/01/18 21:09 Dose: 100 mls/hr Insulin Glargine (Lantus (Bkc)) 4 units SC QHS [facility] Insulin Human Lispro (Humalog Kwikpen (Bkc)) 10 unit SC TIDAC [facility] Last Admin: 10/02/18 12:21 Dose: Not Given Insulin Human Lispro (Humalog Kwikpen (Bkc)) 4 unit SC X1 ONE Stop: 10/02/18 23:23 Last Admin: 10/01/18 23:42 Dose: 4 u Insulin Human Lispro (Humalog Kwikpen (Bkc)) 0 unit SQ ACHS & 3AM [facility]; Protocol Last Admin: 10/02/18 12:21 Dose: Not Given Isosorbide Mononitrate (Imdur) 60 mg PO DAILY [facility] Last Admin: 10/02/18 12:24 Dose: 60 mg Lisinopril (Zestril) 20 mg PO DAILY [facility] Last Admin: 10/02/18 06:19 Dose: 20 mg Loperamide HCl (Imodium) 2 mg PO TID PRN PRN PRN Reason: STOOLING Morphine Sulfate () 1 - 2 mg IV Q4H PRN PRN PRN Reason: SEVERE PAIN (6-10/10) Last Admin: 10/01/18 20:41 Dose: 2 mg Multivit/Ca Carb/B Cmplx/FA/Prenat (Nephrocaps, Renaphro) 1 capsule PO DAILY [facility] Last Admin: 10/02/18 12:25 Dose: 1 capsule Nitroglycerin (Nitrostat) 0.4 mg SUBLINGUAL Q5M PRN PRN Reason: CHEST PAIN Nystatin (Mycostatin Powder) 1 applic TOPICAL BID [facility]; Protocol Last Admin: 10/02/18 12:24 Dose: Not Given Pantoprazole Sodium (Protonix) 20 mg PO BID [facility] Last Admin: 10/02/18 12:23 Dose: 20 mg Promethazine HCl (Phenergan) 12.5 mg IV Q4H PRN PRN PRN Reason: NAUSEA/VOMITING Last Admin: 10/02/18 06:27 Dose: 12.5 mg Sodium Bicarbonate (Sodium Bicarbonate) 650 mg PO 4X/DAY [facility] Last Admin: 10/02/18 12:23 Dose: 650 mg Sodium Chloride () 5 - 15 ml IV UD PRN PRN Reason: SALINE FLUSH Last Admin: 10/02/18 06:28 Dose: 5 ml Zolpidem Tartrate (Ambien (Generic)) 5 mg PO QHS PRN PRN PRN Reason: SLEEP Last Admin: 10/01/18 23:58 Dose: 5 mg - Past Medical History Past Medical History (Chronic Problems): Chronic Problems (Last Reviewed 07/27/18 @ 11:56 by Pricila Olson) CAD (coronary artery disease) (Chronic) Stented coronary artery (Chronic 02/26/18) FFR of LAD 0.82; VIKY of mid LAD with 2.5 X 24 mm Promus Synergy, OM <50% stenosis per Dr. Magdaleno @ [facility] Atherosclerotic heart disease of [place] coronary artery without angina pectoris (Chronic) S/P PTCA/VIKY to mid LAD in February 2018 OM #1 noted to be 50%; ESRD (end stage renal disease) on dialysis (Chronic) Decubitus ulcer, stage III (Chronic) Anemia, chronic disease (Chronic) Pilonidal cyst with abscess (Chronic) GABRIEL (obstructive sleep apnea) (Chronic) Depression (Chronic) Anxiety (Chronic) HTN (hypertension) (Chronic) Nonischemic cardiomyopathy (Chronic) EF 45% per echo 07/01/2018 S/P repair of PDA (patent ductus arteriosus) (Chronic) At young age Diabetes mellitus type 1 (Chronic) Hyperlipidemia (Chronic) Obesity (BMI 30.0-34.9) (Chronic) Gastroparesis (Chronic) - Past Surgical History Surgical History: appendectomy, hysterectomy - and BSO, - - c-sections, L breast I+D for abscess, fistula placement LUE, L ankle surgery, appendectomy, PDA repair. Excision pilonidal cyst ulcer about 4 years ago. Colostomy placed due to rectal abscess/wound, patent ductus repair, drug-eluting stent placement left anterior descending coronary artery February 2018. - Social History Smoking Status: Current some day smoker - Family History Maternal History Items: Cancer, COPD, Diabetes, Hypertension, Renal Disease, Stroke Paternal History Items: Diabetes Sibling History Items: Cancer, Diabetes Patient Problems: Active and Suspected Problems (Last Reviewed 07/27/18 @ 11:56 by Pricila Olson) COPD exacerbation (Acute) Right lower lobe pneumonia (Acute) - Physical Exam General: Oriented x3 HEENT: Atraumatic Oral: Moist Mucosa Neck: Supple, No JVD Lungs: Rhonchi Cardiovascular: Regular rate, Regular Rhythm, Normal S1, Normal S2 Abdomen: Bowel Sounds Present, Soft, Non Tender Extremities: No clubbing, No cyanosis, No edema Skin: No rashes Musculoskeletal: No Tenderness to Palpation of Joints or Extremities Lymphatic: No Cervical, Supraclavicular, or Inguinal Adenopathy Neurological: Cranial nerves II-XII grossly intact, Neuro grossly intact Psych/Mental Status: Appropriate Vital Signs Temp Pulse Resp BP Pulse Ox 97.9 F 87 18 124/76 H 99 10/02/18 09:20 10/02/18 09:20 10/02/18 09:20 10/02/18 09:20 10/02/18 09:20 Oxygen Flow Rate (L/min) 2 Oxygen Delivery Method Nasal Cannula Weight: 90.4 kg Body Mass Index (BMI) 32.1 Finger Stick Blood Glucose 118 Intake and Output for Last 24 Hours 09/30/18 10/01/18 10/02/18 23:59 23:59 23:59 Intake Total 342 / 342 Output Total 100 / 100 Balance 342 / 342 -100 / -100 Microbiology Past 72 Hours 10/01/18 20:30 Respiratory Panel (PCR) - Final Mucosa - Nasopharyngeal Influenza A (Subtype H3) 10/02/18 02:05 Legionella Antigen - Final Urine, Clean Catch 10/02/18 02:05 Streptococcus pneumoniae Antigen (M - Final Urine, Clean Catch 10/01/18 23:47 Stool Occult Blood (SCARLET) - Final Stool Occult Blood Positive Laboratory Tests Past 24 Hrs 10/01/18 10/01/18 10/01/18 20:02 20:02 22:52 WBC RBC Hgb Hct MCV MCH MCHC RDW RDW Differential Plt Count MPV Immature Gran % (Auto) Neut % (Auto) Lymph % (Auto) [place] % (Auto) Eos % (Auto) Baso % (Auto) Absolute Neuts (auto) Absolute Lymphs (auto) Total Counted PT INR APTT Sodium Potassium Chloride Carbon Dioxide Anion Gap BUN Creatinine Estim Creat Clear Calc Est GFR (MDRD) Af Amer Est GFR (MDRD) Non-Af BUN/Creatinine Ratio Glucose Calcium Total Bilirubin AST ALT Alkaline Phosphatase Troponin I 0.491 H 0.377 H B-Natriuretic Peptide 2619.7 H Total Protein Albumin Globulin Albumin/Globulin Ratio Triglycerides Cholesterol LDL Cholesterol VLDL Cholesterol HDL Cholesterol TSH Urine Color Urine Clarity Urine pH Ur Specific [place] Urine Protein Urine Glucose (UA) Urine Ketones Urine Occult Blood Urine Nitrite Urine Bilirubin Urine Urobilinogen Ur Leukocyte Esterase 10/02/18 10/02/18 10/02/18 02:05 02:14 02:14 WBC 6.4 RBC 3.08 L Hgb 9.3 L Hct 31.2 L MCV 101.3 H MCH 30.2 MCHC 29.8 L RDW 17.1 H RDW Differential 62.4 H Plt Count 136 L MPV 9.4 Immature Gran % (Auto) 0.800 Neut % (Auto) 75.8 H Lymph % (Auto) 15.8 L [place] % (Auto) 4.0 Eos % (Auto) 3.4 Baso % (Auto) 0.2 Absolute Neuts (auto) 4.9 Absolute Lymphs (auto) 1.02 Total Counted Not Reportable PT INR APTT Sodium 137 Potassium 4.6 Chloride 100 Carbon Dioxide 25.0 Anion Gap 12 BUN 66 H Creatinine 7.19 H Estim Creat Clear Calc 9.35 Est GFR (MDRD) Af Amer 8 L Est GFR (MDRD) Non-Af 7 L BUN/Creatinine Ratio 9.2 L Glucose 123 H Calcium 8.6 Total Bilirubin 0.40 AST 16 ALT 22 Alkaline Phosphatase 114 Troponin I 0.399 H B-Natriuretic Peptide Total Protein 6.9 Albumin 2.6 L Globulin 4.3 H Albumin/Globulin Ratio 0.6 L Triglycerides 87 Cholesterol 85 LDL Cholesterol 34 VLDL Cholesterol 17 HDL Cholesterol 34 L TSH 1.78 Urine Color Yellow Urine Clarity Sl. Cloudy Urine pH 6.0 Ur Specific [place] 1.015 Urine Protein 500 H Urine Glucose (UA) 250 H Urine Ketones Negative Urine Occult Blood 25 H Urine Nitrite Negative Urine Bilirubin Negative Urine Urobilinogen Normal Ur Leukocyte Esterase 100 H 10/02/18 10/02/18 02:14 05:20 WBC RBC Hgb Hct MCV MCH MCHC RDW RDW Differential Plt Count MPV Immature Gran % (Auto) Neut % (Auto) Lymph % (Auto) [place] % (Auto) Eos % (Auto) Baso % (Auto) Absolute Neuts (auto) Absolute Lymphs (auto) Total Counted PT 16.2 H INR 1.3 APTT 30.7 Sodium Potassium Chloride Carbon Dioxide Anion Gap BUN Creatinine Estim Creat Clear Calc Est GFR (MDRD) Af Amer Est GFR (MDRD) Non-Af BUN/Creatinine Ratio Glucose Calcium Total Bilirubin AST ALT Alkaline Phosphatase Troponin I Cancelled B-Natriuretic Peptide Total Protein Albumin Globulin Albumin/Globulin Ratio Triglycerides Cholesterol LDL Cholesterol VLDL Cholesterol HDL Cholesterol TSH Urine Color Urine Clarity Urine pH Ur Specific [place] Urine Protein Urine Glucose (UA) Urine Ketones Urine Occult Blood Urine Nitrite Urine Bilirubin Urine Urobilinogen Ur Leukocyte Esterase POC Glucose 10/02/18 10/02/18 10/02/18 12:19 06:24 02:09 POC Glucose 154 H 101 129 H 10/01/18 22:24 POC Glucose 366 H Assessment/Plan All Active Problems (Last Reviewed 07/27/18 @ 11:56 by Pricila Olson) Cellulitis (Resolved) COPD exacerbation (Acute) Right lower lobe pneumonia (Acute) Nausea & vomiting (Resolved) Migraine (Resolved) Metabolic encephalopathy (Resolved) Chest pain (Acute) Tooth abscess (Resolved) Intractable nausea and vomiting (Resolved) Pneumonia (Resolved) Pulmonary edema (Resolved) Hyperkalemia (Resolved) Atypical chest pain (Resolved) Acute hypoxic respiratory failure (Resolved) Pulmonary edema (Resolved) Clostridium difficile enterocolitis (Resolved) Necrotizing myositis (Resolved) Dysmenorrhea (Resolved) Hx of necrotizing fascIItis (Resolved) Iron deficiency anemia due to chronic blood loss (Resolved) Systolic congestive heart failure (Resolved) 1-end-stage renal disease on Monday. Patient goes to [facility]. Dr. Martinez the primary art studio teacher. Will arrange for hemodialysis session today as per her chronic order. Ultrafiltration according to EDW 2-anemia. Continue ESTUARDO as per the chronic order. 3-bone mineral disease. Continue calcium acetate 1330 mg 3 times daily with meals. Check phosphorus level tomorrow 4-hypertension: Blood pressure is well controlled. Continue same blood pressure medication. 5-pneumonia/flu. Antibiotics as per the primary service. Thank you for the consult. Renal team will continue to follow. Please call with any question or concern. Maria Isabel Valdivia MD [phone]
--- NOTE | 2018-10-02 13:50 | CASEMGMT ---
MALLORY SCHUMACHER assessment: Face to Face with patient for initial transition planning/care coordination assessment. MALLORY SCHUMACHER introduced self and role at [facility], pt voices understanding and consents to assessment at this time. Pt is sitting up in bed in no distress at this time. Pt is A/Ox4 at this time and answers all questions appropriately at this time. [facility] is here setting pt up for dialysis at this time. Care providers, pharmacy, and demographics verified at this time. PCP: Law Specialists: Rasta, cardio; Juan, nephro; Shaneka, plastics Preferred Pharmacy: [facility] Insurance: [facility] A/B, [facility] Prescription Benefit: CHETAN Living Will/HPOA: Pt states that she has a LW/HPOA and that her mother, Courtney Hull, is HPOA. Pt's AD's are not on file at [facility] at this time. LNOK: Courtney Hull, mother; Mark Carrillo, sig other Living Arrangements: Pt states lives with sig other, mother and daughter in 1 story apt with 1 step in and states no concerns at home at this time. Pt states is independent with ADL's and states no concerns at home at this time. Transportation: Pt states that she occasionally drives but family/friends/[place] drive normally and states no transportation concerns at this time. DME/HHC: Pt states has 2liters home oxygen thru [employer] and states her cpap 'got lost' at SNF and she can't get a new one for 2 more years. Pt states she gets her colostomy supplies thru [facility]. Pt states no need for any further DME at this time. Pt states she has had [facility] set up in the past and has also been to [facility] and [facility]. Pt states that she has [place] set up to transport her to dialysis T,Th,Sat at 1120 at [facility]. Pt states no concerns with going home at time of discharge. Pt states is disabled. Pt states smokes occasionally and does not drink ETOH. Pt states no further concerns/needs at this time. CM to follow for any further discharge planning/needs. Advised pt to ask for CM if any further questions/concerns/needs arise, voices understanding. Plan: [place] MALLORY SCHUMACHER
--- NOTE | 2018-10-02 13:52 | PN_ITS ---
Patient Problems: Active and Suspected Problems (Last Reviewed 07/27/18 @ 11:56 by Pricila Olson) COPD exacerbation (Acute) Right lower lobe pneumonia (Acute) Subjective: Patient seen and examined. She was admitted with a complaint of chest pain. She has no complaints now, but feels quite lethargic. He denies any fever, chills, cough, palpitations, dizziness, abdominal pain, diarrhea or vomiting. Review of systems was otherwise negative. Labs and vitals reviewed. Vitals/I&O's: Vital Signs Temp Pulse Resp BP Pulse Ox 97.9 F 87 18 124/76 H 99 10/02/18 09:20 10/02/18 09:20 10/02/18 09:20 10/02/18 09:20 10/02/18 09:20 Oxygen Flow Rate (L/min) 2 Oxygen Delivery Method Nasal Cannula Weight: 199 lb 4.766 oz Body Mass Index (BMI) 32.1 Finger Stick Blood Glucose 118 Intake and Output for Last 24 Hours 09/30/18 10/01/18 10/02/18 23:59 23:59 23:59 Intake Total 342 / 342 Output Total 100 / 100 Balance 342 / 342 -100 / -100 General: Alert, Oriented x3, Cooperative, No apparent distress HEENT: Atraumatic, PERRLA, EOMI, Normocephalic Oral: Moist Mucosa Neck: Supple, No JVD, Negative Carotid Bruits Lungs: Clear to auscultation, Normal air movement, No rhonchi, No wheeze, No rales Cardiovascular: Regular rate, Regular Rhythm, Normal S1, Normal S2, No murmurs Abdomen: Bowel Sounds Present, Soft, Non Tender, Non-Distended, No Hepato- splenomegaly Extremities: No clubbing, No cyanosis, No edema, Capillary Refill Less than 3 Seconds Skin: No rashes, No breakdown Musculoskeletal: No Tenderness to Palpation of Joints or Extremities, - - LUE AV fistula with a good thrill Lymphatic: No Cervical, Supraclavicular, or Inguinal Adenopathy Neurological: Cranial nerves II-XII grossly intact, Neuro grossly intact, Motor Exam 5/5 strength throughout Psych/Mental Status: Normal Affect, Appropriate, Alert and oriented to time, place, person, mood and affect Microbiology Past 72 Hours 10/01/18 20:30 Mucosa - Nasopharyngeal Respiratory Panel (PCR) - Final Influenza A (Subtype H3) 10/02/18 02:05 Urine, Clean Catch Legionella Antigen - Final 10/02/18 02:05 Urine, Clean Catch Streptococcus pneumoniae Antigen (M - Final 10/01/18 23:47 Stool Stool Occult Blood (SCARLET) - Final Occult Blood Positive Laboratory Results 10/01/18 20:02: B-Natriuretic Peptide 2619.7 H 10/01/18 20:02: Troponin I 0.491 H 10/01/18 22:24: POC Glucose 366 H 10/01/18 22:52: Troponin I 0.377 H 10/02/18 02:05: Urine Color Yellow, Urine Clarity Sl. Cloudy, Urine pH 6.0, Ur Specific [place] 1.015, Urine Protein 500 H, Urine Glucose (UA) 250 H, Urine Ketones Negative, Urine Occult Blood 25 H, Urine Nitrite Negative, Urine Bilirubin Negative, Urine Urobilinogen Normal, Ur Leukocyte Esterase 100 H 10/02/18 02:09: POC Glucose 129 H 10/02/18 02:14: WBC 6.4, RBC 3.08 L, Hgb 9.3 L, Hct 31.2 L, MCV 101.3 H, MCH 30.2, MCHC 29.8 L, RDW 17.1 H, RDW Differential 62.4 H, Plt Count 136 L, MPV 9 .4, Immature Gran % (Auto) 0.800, Neut % (Auto) 75.8 H, Lymph % (Auto) 15.8 L, [place] % (Auto) 4.0, Eos % (Auto) 3.4, Baso % (Auto) 0.2, Absolute Neuts (auto) 4.9, Absolute Lymphs (auto) 1.02, Total Counted Not Reportable 10/02/18 02:14: Sodium 137, Potassium 4.6, Chloride 100, Carbon Dioxide 25.0, Anion Gap 12, BUN 66 H, Creatinine 7.19 H, Estim Creat Clear Calc 9.35, Est GFR (MDRD) Af Amer 8 L, Est GFR (MDRD) Non-Af 7 L, BUN/Creatinine Ratio 9.2 L, Glucose 123 H, Calcium 8.6, Total Bilirubin 0.40, AST 16, ALT 22, Alkaline Phosphatase 114, Troponin I 0.399 H, Total Protein 6.9, Albumin 2.6 L, Globulin 4.3 H, Albumin/Globulin Ratio 0.6 L, Triglycerides 87, Cholesterol 85, LDL Cholesterol 34, VLDL Cholesterol 17, HDL Cholesterol 34 L, TSH 1.78 10/02/18 02:14: Troponin I Cancelled 10/02/18 05:20: PT 16.2 H, INR 1.3, APTT 30.7 10/02/18 06:24: POC Glucose 101 10/02/18 12:19: POC Glucose 154 H Current Medications Acetaminophen (Tylenol) 650 mg PO Q4H PRN PRN PRN Reason: Mild-Mod Pain/Headache,Fever Last Admin: 10/02/18 13:32 Dose: 650 mg Albuterol/Ipratropium (Duoneb) 3 ml INHALATION Q6H.RT [facility] Last Admin: 10/02/18 13:20 Dose: 3 ml Alprazolam (Xanax) 0.5 mg PO TID PRN PRN PRN Reason: ANXIETY Aspirin (Aspirin, Baby) 81 mg PO DAILY@0800 [facility] Last Admin: 10/02/18 06:19 Dose: 81 mg Atorvastatin Calcium (Lipitor) 20 mg PO QHS [facility] Budesonide (Pulmicort Aerosol) 0.5 mg INHALATION BID.RT [facility] Last Admin: 10/02/18 13:21 Dose: 0.5 mg Calcium Acetate (Phoslo Gel Cap) 1,334 mg PO TIDCM [facility] Last Admin: 10/02/18 12:24 Dose: 1,334 mg Carvedilol (Coreg) 25 mg PO BID [facility] Last Admin: 10/02/18 12:24 Dose: 25 mg Clopidogrel Bisulfate (Plavix) 75 mg PO DAILY [facility] Last Admin: 10/02/18 06:19 Dose: 75 mg Dextrose (D50w Syringe) 0 gm IV X1 PRN; Protocol PRN Reason: Hypoglycemia Docusate Sodium (Colace) 200 mg PO BID PRN PRN PRN Reason: Constipation Ergocalciferol (Vitamin D) 50,000 unit PO MO [place] Fluoxetine HCl (Prozac) 20 mg PO DAILY [facility] Last Admin: 10/02/18 12:25 Dose: 20 mg Glucagon () 1 mg IM .X1 PRN PRN Reason: Hypoglycemia Guaifenesin (Mucinex) 1,200 mg PO BID [facility] Last Admin: 10/02/18 12:23 Dose: 1,200 mg Heparin Sodium (Porcine) (Heparin Na) 5,000 unit SC BID [facility] Last Admin: 10/02/18 13:24 Dose: Not Given Azithromycin 500 mg/ Dextrose 255 mls @ 250 mls/hr IV Q24H [facility] Last Admin: 10/01/18 21:09 Dose: 250 mls/hr Ceftriaxone Sodium (Rocephin) 1 gm in 50 mls @ 100 mls/hr IV Q24H [facility] Last Admin: 10/01/18 21:09 Dose: 100 mls/hr Insulin Glargine (Lantus (Bkc)) 4 units SC QHS [place] Insulin Human Lispro (Humalog Kwikpen (Bkc)) 10 unit SC TIDAC [facility] Last Admin: 10/02/18 12:21 Dose: Not Given Insulin Human Lispro (Humalog Kwikpen (Bkc)) 4 unit SC X1 ONE Stop: 10/02/18 23:23 Last Admin: 10/01/18 23:42 Dose: 4 u Insulin Human Lispro (Humalog Kwikpen (Bkc)) 0 unit SQ ACHS & 3AM [facility]; Protocol Last Admin: 10/02/18 12:21 Dose: Not Given Isosorbide Mononitrate (Imdur) 60 mg PO DAILY [facility] Last Admin: 10/02/18 12:24 Dose: 60 mg Lisinopril (Zestril) 20 mg PO DAILY [facility] Last Admin: 10/02/18 06:19 Dose: 20 mg Loperamide HCl (Imodium) 2 mg PO TID PRN PRN PRN Reason: STOOLING Morphine Sulfate () 1 - 2 mg IV Q4H PRN PRN PRN Reason: SEVERE PAIN (6-10/10) Last Admin: 10/01/18 20:41 Dose: 2 mg Multivit/Ca Carb/B Cmplx/FA/Prenat (Nephrocaps, Renaphro) 1 capsule PO DAILY [facility] Last Admin: 10/02/18 12:25 Dose: 1 capsule Nitroglycerin (Nitrostat) 0.4 mg SUBLINGUAL Q5M PRN PRN Reason: CHEST PAIN Nystatin (Mycostatin Powder) 1 applic TOPICAL BID [facility]; Protocol Last Admin: 10/02/18 12:24 Dose: Not Given Pantoprazole Sodium (Protonix) 20 mg PO BID [facility] Last Admin: 10/02/18 12:23 Dose: 20 mg Promethazine HCl (Phenergan) 12.5 mg IV Q4H PRN PRN PRN Reason: NAUSEA/VOMITING Last Admin: 10/02/18 06:27 Dose: 12.5 mg Sodium Bicarbonate (Sodium Bicarbonate) 650 mg PO 4X/DAY [place] Last Admin: 10/02/18 12:23 Dose: 650 mg Sodium Chloride () 5 - 15 ml IV UD PRN PRN Reason: SALINE FLUSH Last Admin: 10/02/18 06:28 Dose: 5 ml Zolpidem Tartrate (Ambien (Generic)) 5 mg PO QHS PRN PRN PRN Reason: SLEEP Last Admin: 10/01/18 23:58 Dose: 5 mg Medical Necessity - Tobacco Use Smoking Status: Current some day smoker Assessment/Plan All Active Problems (Last Reviewed 07/27/18 @ 11:56 by Pricila Olson) Cellulitis (Resolved) COPD exacerbation (Acute) Right lower lobe pneumonia (Acute) Nausea & vomiting (Resolved) Migraine (Resolved) Metabolic encephalopathy (Resolved) Chest pain (Acute) Tooth abscess (Resolved) Intractable nausea and vomiting (Resolved) Pneumonia (Resolved) Pulmonary edema (Resolved) Hyperkalemia (Resolved) Atypical chest pain (Resolved) Acute hypoxic respiratory failure (Resolved) Pulmonary edema (Resolved) Clostridium difficile enterocolitis (Resolved) Necrotizing myositis (Resolved) Dysmenorrhea (Resolved) Hx of necrotizing fascIItis (Resolved) Iron deficiency anemia due to chronic blood loss (Resolved) Systolic congestive heart failure (Resolved) 1. Atypical chest pain * chest pain has improved * troponins x 3 were mildly elevated: 0.491->0.377->0.399 * had stress test today which is pending * on po aspirin 81mg daily and SL nitroglycerin prn * 2. Influenza infection * CXR at [facility] showed fairly linear right basilar airspace disease which may represent atelectasis or infiltrate. * CXR official reading is pending; per my review, she has bilateral patchy opacities in mid and lower lung vidales. * Tested positive for influenza A infection * Will start Tamiflu 30 mg with dialysis. * on Mucinex 1200mg bid * will dc IV rocephin and azithromycin which was started, suspicion of pneumonia. * 3. ESRD on hemodialysis: Nephrology on board. For dialysis today. 4. Hidradenitis suppurativa * s/pn surgery and diverting colostomy * stable * to follow up with Dr Zhang on outpatient basis 3. CAD: Carvedilol, atorvastatin, aspirin and Imdur 4. Hypertension: On lisinopril and carvedilol. DVT Prophylaxis: Heparin Code Visit Inpatient E&M: 94799 Subs Hosp L3
--- NOTE | 2018-10-02 13:52 | CON.PCM_ITS ---
Problem List (1) ESRD (end stage renal disease) on dialysis Status: Chronic Consultation - Renal PCP/ Referring MD: Requesting physician: [] Primary care physician: Christopher Foy MD - History of Present Illness History of Present Illness: The patient is a 42 year old F past medical history of end-stage renal disease on Monday schedule for hemodialysis., COPD, chronic re spiratory failure. Patient presented with chest pain for 1 day along with shortness of breath chills flulike symptoms and cough for 3 days. Renal team was consulted for end-stage renal disease care. Last hemodialysis was on Monday and it was full session. Patient tested positive for flu. Patient had stress echo this morning. Patient is on Rocephin and azithromycin for pneumonia treatment. Review of system: 12 system review is negative except for cough, shortness of breath and chills [] - Allergies Allergies: Allergies latex Allergy (Verified 08/09/18 13:51) Rash prochlorperazine [From Compazine] Allergy (Verified 08/09/18 13:51) Unknown levofloxacin [From Levaquin] Adverse Reaction (Verified 08/09/18 13:51) PT CAN'T REMEMBER PT CAN'T REMEMBER metoclopramide HCl [From Reglan] Adverse Reaction (Verified 08/09/18 13:51) Nausea NSAIDS (Non-Steroidal Anti-Inflamma Adverse Reaction (Verified 08/09/18 13:51) kidney function oxycodone HCl [From Percocet] Adverse Reaction (Verified 08/09/18 13:51) HALLUCINATIONS - Current Medications Current Medications: Current Medications Acetaminophen (Tylenol) 650 mg PO Q4H PRN PRN PRN Reason: Mild-Mod Pain/Headache,Fever Last Admin: 10/02/18 13:32 Dose: 650 mg Albuterol/Ipratropium (Duoneb) 3 ml INHALATION Q6H.RT [place] Last Admin: 10/02/18 13:20 Dose: 3 ml Alprazolam (Xanax) 0.5 mg PO TID PRN PRN PRN Reason: ANXIETY Aspirin (Aspirin, Baby) 81 mg PO DAILY@0800 [place] Last Admin: 10/02/18 06:19 Dose: 81 mg Atorvastatin Calcium (Lipitor) 20 mg PO QHS [place] Budesonide (Pulmicort Aerosol) 0.5 mg INHALATION BID.RT [place] Last Admin: 10/02/18 13:21 Dose: 0.5 mg Calcium Acetate (Phoslo Gel Cap) 1,334 mg PO TIDCM [facility] Last Admin: 10/02/18 12:24 Dose: 1,334 mg Carvedilol (Coreg) 25 mg PO BID [facility] Last Admin: 10/02/18 12:24 Dose: 25 mg Clopidogrel Bisulfate (Plavix) 75 mg PO DAILY [facility] Last Admin: 10/02/18 06:19 Dose: 75 mg Dextrose (D50w Syringe) 0 gm IV X1 PRN; Protocol PRN Reason: Hypoglycemia Docusate Sodium (Colace) 200 mg PO BID PRN PRN PRN Reason: Constipation Ergocalciferol (Vitamin D) 50,000 unit PO MO [facility] Fluoxetine HCl (Prozac) 20 mg PO DAILY [facility] Last Admin: 10/02/18 12:25 Dose: 20 mg Glucagon () 1 mg IM .X1 PRN PRN Reason: Hypoglycemia Guaifenesin (Mucinex) 1,200 mg PO BID [facility] Last Admin: 10/02/18 12:23 Dose: 1,200 mg Heparin Sodium (Porcine) (Heparin Na) 5,000 unit SC BID [facility] Last Admin: 10/02/18 13:24 Dose: Not Given Azithromycin 500 mg/ Dextrose 255 mls @ 250 mls/hr IV Q24H [facility] Last Admin: 10/01/18 21:09 Dose: 250 mls/hr Ceftriaxone Sodium (Rocephin) 1 gm in 50 mls @ 100 mls/hr IV Q24H [facility] Last Admin: 10/01/18 21:09 Dose: 100 mls/hr Insulin Glargine (Lantus (Bkc)) 4 units SC QHS [facility] Insulin Human Lispro (Humalog Kwikpen (Bkc)) 10 unit SC TIDAC [facility] Last Admin: 10/02/18 12:21 Dose: Not Given Insulin Human Lispro (Humalog Kwikpen (Bkc)) 4 unit SC X1 ONE Stop: 10/02/18 23:23 Last Admin: 10/01/18 23:42 Dose: 4 u Insulin Human Lispro (Humalog Kwikpen (Bkc)) 0 unit SQ ACHS & 3AM [facility]; Protocol Last Admin: 10/02/18 12:21 Dose: Not Given Isosorbide Mononitrate (Imdur) 60 mg PO DAILY [facility] Last Admin: 10/02/18 12:24 Dose: 60 mg Lisinopril (Zestril) 20 mg PO DAILY [facility] Last Admin: 10/02/18 06:19 Dose: 20 mg Loperamide HCl (Imodium) 2 mg PO TID PRN PRN PRN Reason: STOOLING Morphine Sulfate () 1 - 2 mg IV Q4H PRN PRN PRN Reason: SEVERE PAIN (6-10/10) Last Admin: 10/01/18 20:41 Dose: 2 mg Multivit/Ca Carb/B Cmplx/FA/Prenat (Nephrocaps, Renaphro) 1 capsule PO DAILY [facility] Last Admin: 10/02/18 12:25 Dose: 1 capsule Nitroglycerin (Nitrostat) 0.4 mg SUBLINGUAL Q5M PRN PRN Reason: CHEST PAIN Nystatin (Mycostatin Powder) 1 applic TOPICAL BID [facility]; Protocol Last Admin: 10/02/18 12:24 Dose: Not Given Pantoprazole Sodium (Protonix) 20 mg PO BID [facility] Last Admin: 10/02/18 12:23 Dose: 20 mg Promethazine HCl (Phenergan) 12.5 mg IV Q4H PRN PRN PRN Reason: NAUSEA/VOMITING Last Admin: 10/02/18 06:27 Dose: 12.5 mg Sodium Bicarbonate (Sodium Bicarbonate) 650 mg PO 4X/DAY [facility] Last Admin: 10/02/18 12:23 Dose: 650 mg Sodium Chloride () 5 - 15 ml IV UD PRN PRN Reason: SALINE FLUSH Last Admin: 10/02/18 06:28 Dose: 5 ml Zolpidem Tartrate (Ambien (Generic)) 5 mg PO QHS PRN PRN PRN Reason: SLEEP Last Admin: 10/01/18 23:58 Dose: 5 mg - Past Medical History Past Medical History (Chronic Problems): Chronic Problems (Last Reviewed 07/27/18 @ 11:56 by Pricila Olson) CAD (coronary artery disease) (Chronic) Stented coronary artery (Chronic 02/26/18) FFR of LAD 0.82; VIKY of mid LAD with 2.5 X 24 mm Promus Synergy, OM <50% stenosis per Dr. Magdaleno @ [facility] Atherosclerotic heart disease of [place] coronary artery without angina pectoris (Chronic) S/P PTCA/VIKY to mid LAD in February 2018 OM #1 noted to be 50%; ESRD (end stage renal disease) on dialysis (Chronic) Decubitus ulcer, stage III (Chronic) Anemia, chronic disease (Chronic) Pilonidal cyst with abscess (Chronic) GABRIEL (obstructive sleep apnea) (Chronic) Depression (Chronic) Anxiety (Chronic) HTN (hypertension) (Chronic) Nonischemic cardiomyopathy (Chronic) EF 45% per echo 07/01/2018 S/P repair of PDA (patent ductus arteriosus) (Chronic) At young age Diabetes mellitus type 1 (Chronic) Hyperlipidemia (Chronic) Obesity (BMI 30.0-34.9) (Chronic) Gastroparesis (Chronic) - Past Surgical History Surgical History: appendectomy, hysterectomy - and BSO, - - c-sections, L breast I+D for abscess, fistula placement LUE, L ankle surgery, appendectomy, PDA repair. Excision pilonidal cyst ulcer about 4 years ago. Colostomy placed due to rectal abscess/wound, patent ductus repair, drug-eluting stent placement left anterior descending coronary artery February 2018. - Social History Smoking Status: Current some day smoker - Family History Maternal History Items: Cancer, COPD, Diabetes, Hypertension, Renal Disease, Stroke Paternal History Items: Diabetes Sibling History Items: Cancer, Diabetes Patient Problems: Active and Suspected Problems (Last Reviewed 07/27/18 @ 11:56 by Pricila Olson) COPD exacerbation (Acute) Right lower lobe pneumonia (Acute) - Physical Exam General: Oriented x3 HEENT: Atraumatic Oral: Moist Mucosa Neck: Supple, No JVD Lungs: Rhonchi Cardiovascular: Regular rate, Regular Rhythm, Normal S1, Normal S2 Abdomen: Bowel Sounds Present, Soft, Non Tender Extremities: No clubbing, No cyanosis, No edema Skin: No rashes Musculoskeletal: No Tenderness to Palpation of Joints or Extremities Lymphatic: No Cervical, Supraclavicular, or Inguinal Adenopathy Neurological: Cranial nerves II-XII grossly intact, Neuro grossly intact Psych/Mental Status: Appropriate Vital Signs Temp Pulse Resp BP Pulse Ox 97.9 F 87 18 124/76 H 99 10/02/18 09:20 10/02/18 09:20 10/02/18 09:20 10/02/18 09:20 10/02/18 09:20 Oxygen Flow Rate (L/min) 2 Oxygen Delivery Method Nasal Cannula Weight: 90.4 kg Body Mass Index (BMI) 32.1 Finger Stick Blood Glucose 118 Intake and Output for Last 24 Hours 09/30/18 10/01/18 10/02/18 23:59 23:59 23:59 Intake Total 342 / 342 Output Total 100 / 100 Balance 342 / 342 -100 / -100 Microbiology Past 72 Hours 10/01/18 20:30 Respiratory Panel (PCR) - Final Mucosa - Nasopharyngeal Influenza A (Subtype H3) 10/02/18 02:05 Legionella Antigen - Final Urine, Clean Catch 10/02/18 02:05 Streptococcus pneumoniae Antigen (M - Final Urine, Clean Catch 10/01/18 23:47 Stool Occult Blood (SCARLET) - Final Stool Occult Blood Positive Laboratory Tests Past 24 Hrs 10/01/18 10/01/18 10/01/18 20:02 20:02 22:52 WBC RBC Hgb Hct MCV MCH MCHC RDW RDW Differential Plt Count MPV Immature Gran % (Auto) Neut % (Auto) Lymph % (Auto) [place] % (Auto) Eos % (Auto) Baso % (Auto) Absolute Neuts (auto) Absolute Lymphs (auto) Total Counted PT INR APTT Sodium Potassium Chloride Carbon Dioxide Anion Gap BUN Creatinine Estim Creat Clear Calc Est GFR (MDRD) Af Amer Est GFR (MDRD) Non-Af BUN/Creatinine Ratio Glucose Calcium Total Bilirubin AST ALT Alkaline Phosphatase Troponin I 0.491 H 0.377 H B-Natriuretic Peptide 2619.7 H Total Protein Albumin Globulin Albumin/Globulin Ratio Triglycerides Cholesterol LDL Cholesterol VLDL Cholesterol HDL Cholesterol TSH Urine Color Urine Clarity Urine pH Ur Specific Recluse Urine Protein Urine Glucose (UA) Urine Ketones Urine Occult Blood Urine Nitrite Urine Bilirubin Urine Urobilinogen Ur Leukocyte Esterase 10/02/18 10/02/18 10/02/18 02:05 02:14 02:14 WBC 6.4 RBC 3.08 L Hgb 9.3 L Hct 31.2 L MCV 101.3 H MCH 30.2 MCHC 29.8 L RDW 17.1 H RDW Differential 62.4 H Plt Count 136 L MPV 9.4 Immature Gran % (Auto) 0.800 Neut % (Auto) 75.8 H Lymph % (Auto) 15.8 L [place] % (Auto) 4.0 Eos % (Auto) 3.4 Baso % (Auto) 0.2 Absolute Neuts (auto) 4.9 Absolute Lymphs (auto) 1.02 Total Counted Not Reportable PT INR APTT Sodium 137 Potassium 4.6 Chloride 100 Carbon Dioxide 25.0 Anion Gap 12 BUN 66 H Creatinine 7.19 H Estim Creat Clear Calc 9.35 Est GFR (MDRD) Af Amer 8 L Est GFR (MDRD) Non-Af 7 L BUN/Creatinine Ratio 9.2 L Glucose 123 H Calcium 8.6 Total Bilirubin 0.40 AST 16 ALT 22 Alkaline Phosphatase 114 Troponin I 0.399 H B-Natriuretic Peptide Total Protein 6.9 Albumin 2.6 L Globulin 4.3 H Albumin/Globulin Ratio 0.6 L Triglycerides 87 Cholesterol 85 LDL Cholesterol 34 VLDL Cholesterol 17 HDL Cholesterol 34 L TSH 1.78 Urine Color Yellow Urine Clarity Sl. Cloudy Urine pH 6.0 Ur Specific Recluse 1.015 Urine Protein 500 H Urine Glucose (UA) 250 H Urine Ketones Negative Urine Occult Blood 25 H Urine Nitrite Negative Urine Bilirubin Negative Urine Urobilinogen Normal Ur Leukocyte Esterase 100 H 10/02/18 10/02/18 02:14 05:20 WBC RBC Hgb Hct MCV MCH MCHC RDW RDW Differential Plt Count MPV Immature Gran % (Auto) Neut % (Auto) Lymph % (Auto) [place] % (Auto) Eos % (Auto) Baso % (Auto) Absolute Neuts (auto) Absolute Lymphs (auto) Total Counted PT 16.2 H INR 1.3 APTT 30.7 Sodium Potassium Chloride Carbon Dioxide Anion Gap BUN Creatinine Estim Creat Clear Calc Est GFR (MDRD) Af Amer Est GFR (MDRD) Non-Af BUN/Creatinine Ratio Glucose Calcium Total Bilirubin AST ALT Alkaline Phosphatase Troponin I Cancelled B-Natriuretic Peptide Total Protein Albumin Globulin Albumin/Globulin Ratio Triglycerides Cholesterol LDL Cholesterol VLDL Cholesterol HDL Cholesterol TSH Urine Color Urine Clarity Urine pH Ur Specific Recluse Urine Protein Urine Glucose (UA) Urine Ketones Urine Occult Blood Urine Nitrite Urine Bilirubin Urine Urobilinogen Ur Leukocyte Esterase POC Glucose 10/02/18 10/02/18 10/02/18 12:19 06:24 02:09 POC Glucose 154 H 101 129 H 10/01/18 22:24 POC Glucose 366 H Assessment/Plan All Active Problems (Last Reviewed 07/27/18 @ 11:56 by Pricila Olson) Cellulitis (Resolved) COPD exacerbation (Acute) Right lower lobe pneumonia (Acute) Nausea & vomiting (Resolved) Migraine (Resolved) Metabolic encephalopathy (Resolved) Chest pain (Acute) Tooth abscess (Resolved) Intractable nausea and vomiting (Resolved) Pneumonia (Resolved) Pulmonary edema (Resolved) Hyperkalemia (Resolved) Atypical chest pain (Resolved) Acute hypoxic respiratory failure (Resolved) Pulmonary edema (Resolved) Clostridium difficile enterocolitis (Resolved) Necrotizing myositis (Resolved) Dysmenorrhea (Resolved) Hx of necrotizing fascIItis (Resolved) Iron deficiency anemia due to chronic blood loss (Resolved) Systolic congestive heart failure (Resolved) 1-end-stage renal disease on Monday. Patient goes to [facility]. 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 Will arrange for hemodialysis session today as per her chronic order. Ultrafiltration according to EDW 2-anemia. Continue ESTUARDO as per the chronic order. 3-bone mineral disease. Continue calcium acetate 1330 mg 3 times daily with meals. Check phosphorus level tomorrow 4-hypertension: Blood pressure is well controlled. Continue same blood pressure medication. 5-pneumonia/flu. Antibiotics as per the primary service. Thank you for the consult. Renal team will continue to follow. Please call with any question or concern. Maria Isabel Valdivia MD [phone]
--- NOTE | 2018-10-02 14:41 | STRESSREP_ITS ---
Stress Test Report Pharmacologic myocardial perfusion stress test. 42-year-old lady with a history of coronary artery disease and end-stage renal disease. Stress protocol: Resting EKG demonstrates normal sinus rhythm with a rate of 92 bpm T wave inversions noted in leads II, III and aVF V5 and V6. 0.4 mg of regadenoson was infused per usual protocol followed by rapid intravenous saline flush injection continuous EKG monitoring was performed. The patient maintained sinus rhythm throughout the recording. The maximum heart rate was 97 bpm which was 55% of maximum predicted heart rate the maximum workload was 1 metabolic equivalent. At rest nonspecific T wave changes were noted in the inferolateral leads. At peak infusion T wave inversions persisted throughout. The resting blood pressure 122/70 with a final blood pressure 118/70 mmHg. Pharmacologic myocardial perfusion test. Next line 11.8 mCi of technetium 99m sestamibi was injected at rest. 0.4 mg of regadenoson was infused per usual protocol peak infusion 33.5 mCi of technetium 99m sestamibi was injected stress images were obtained stress and rest images were reconstructed and compared in the short axis vertical long horizontal long axis. Gated images were also obtained per Perfusion SPECT analysis: Review of the images demonstrate a mildly dilated cardiac silhouette size. T here is a large defect noted involving the mid anterior wall extending all the way through the apex and the inferior apical wall. The mid and basal inferior wall also has moderately reduced perfusion. The resting images demonstrate a similar pattern suggestive of a large extensive anterior, apical and inferior apical infarct at region. There is also mild reduction of perfusion noted in the mid anterior septal wall. The stress and rest images demonstrate a similar pattern in the above does not appear to be indicative of any ischemia. Gated SPECT analysis: The gated ejection fraction is noted to be 29% with severe hypokinesis of the anterior wall apex and inferoapical wall. The right ventricle is also dilated. Conclusion: Myocardial perfusion stress test with evidence of previous extensive anterior and apical and inferoapical infarct. Ischemic cardiomyopathy No ischemia noted.
[2018-10-02] MEDS: Oseltamivir Phosphate 30 MG Capsule PO (15:36)
[2018-10-02 17:16] LABS: Bedside Glucose 161 mg/dL (70-110)
--- NOTE | 2018-10-02 19:50 | DIALYSIS ---
hemodialysis completed x 3.5 hrs. 3K bath. UF 2L. Access via LFA AVF. report faxed to [facility] [place]. See HD flowsheet on chart.
[2018-10-02] MEDS: Atorvastatin Calcium 20 MG Tablet PO (21:31)
[2018-10-02] MEDS: Heparin Injection (Vial) 5,000 UNIT/ML VIAL 5000 UNIT SC (21:31)
[2018-10-02] MEDS: Insulin Lispro 100 UNIT/ML INSULN.PEN SQ (21:32)
[2018-10-02] MEDS: Ceftriaxone 1 GM/50 ML BAG IV (21:42)
[2018-10-02] MEDS: Zolpidem Tartrate 5 MG Tablet PO (22:17)
[2018-10-02 23:01] LABS: Bedside Glucose 263 mg/dL (70-110)
[2018-10-03] VITALS (7 sets, daily range): BP systolic 116–127; BP diastolic 56–78; PULSE 76–83; RESP 14–20; TEMP 36.6; O2SAT 93–98
[2018-10-03] MEDS: Ketorolac 15 MG/ML Vial IV (00:15)
[2018-10-03] MEDS: 0.9% NaCl Peripheral Flush Adult/Peds IV (00:15)
[2018-10-03] MEDS: Ipratropium/Albuterol Sulfate 3 ML AMPUL.NEB INHALATION ×2 (01:55→07:48)
[2018-10-03] MEDS: Insulin Lispro 100 UNIT/ML INSULN.PEN SQ ×3 (02:14→11:34)
[2018-10-03 02:26] LABS: Bedside Glucose 209 mg/dL (70-110)
[2018-10-03 06:33] LABS: Absolute Lymphocyte Count 0.85 X10^3/ul (0.83-4.51); Absolute Neutrophil Count 3.6 X10^3/uL (2.0-7.7); Basophil# 0.01 X10^3/uL; Basophil% 0.2 % (0-1); Eosinophil# 0.25 X10^3/uL; Eosinophils% 5.1 % (0-5); Hematocrit 30.4 % (37-47); Lymphocyte # 0.85 X10^3/ul (4.0); Lymphocyte % 17.5 % (19-41); Mean Corp Hgb Conc 29.6 g/gl (32-36); Mean Corpuscular Hgb 30.9 pg (27.0-32.0); Mean Corpuscular Volume 104.5 fL (81-99); Mean Platelet Vol. 9.3 fl (6.2-12.0); Monocyte# 0.15 X10^3/uL; Monocyte% 3.1 % (0-10); Neutrophil # 3.55 X10^3/uL (2.7-7.7); Neutrophil % 72.9 % (47-70); Platelet Count 146 K/mm3 (150-450); RBC Distribution Width CV 16.5 % (11.6-14.6); RBC Distribution Width SD 59.9 fl (35.1-43.9); Red Blood Count 2.91 M/mm3 (4.2-5.4); White Blood Count 4.9 K/mm3 (4.4-11.0)
[2018-10-03 06:34] LABS: POSITIVE COUNT NO; POSITIVE DIFFERENTIAL NO; POSITIVE MORPHOLOGY NO
[2018-10-03 06:57] LABS: Anion Gap 10 (5-15); BUN 41 mg/dL (7-18); BUN/Creat Ratio 8.2 RATIO (10-20); Calcium,Total 8.1 mg/dL (8.5-10.1); Chloride 99 mmol/L (98-107); Creatinine, Serum 4.98 mg/dL (0.55-1.02); EST Glomerular Filtration Rate 10 mL/min (>60); Est Glom Filt Rate - Afr Amer 12 mL/min (>60); Glucose 204 mg/dL (74-106); Potassium 4.1 mmol/L (3.5-5.1); Sodium Level 140 mmol/L (136-145)
[2018-10-03 07:00] LABS: Bedside Glucose 217 mg/dL (70-110)
[2018-10-03] MEDS: Budesonide Respules 0.5 MG/2 ML AMPUL.NEB. INHALATION (07:48)
[2018-10-03] MEDS: Pantoprazole Sodium 20 MG Tablet PO (09:09)
[2018-10-03] MEDS: Calcium Acetate 667 MG Capsule 1334 MG PO ×2 (09:09→11:35)
[2018-10-03] MEDS: Sodium Bicarbonate 650 MG Tablet PO (09:09)
[2018-10-03] MEDS: Folic Acid/Vitamin B Comp W-C 1 Capsule 1 CAP PO (09:09)
[2018-10-03] MEDS: FLUoxetine 20 MG Capsule PO (09:10)
[2018-10-03] MEDS: Isosorbide Mononitrate 60 MG Tablet PO (09:10)
[2018-10-03] MEDS: Clopidogrel Bisulfate 75 MG Tablet PO (09:10)
[2018-10-03] MEDS: guaiFENesin 1,200 MG Tablet 1200 MG PO (09:10)
[2018-10-03] MEDS: Aspirin 81 MG TAB.CHEW PO (09:10)
[2018-10-03] MEDS: Carvedilol 25 MG Tablet PO (09:11)
[2018-10-03] MEDS: Lisinopril 20 MG Tablet PO (09:11)
[2018-10-03] MEDS: Insulin Lispro 100 UNIT/ML INSULN.PEN 10 UNIT SC ×2 (09:12→11:33)
[2018-10-03] MEDS: Acetaminophen 325 MG Tablet 650 MG PO (09:20)
[2018-10-03] MEDS: ALPRAZolam 0.5 MG Tablet PO (09:20)
--- NOTE | 2018-10-03 10:50 | CASEMGMT ---
Addendum entered by Viktoria Herman 10/03/18 13:02: [facility] now states that since pt does have tanks at home(but they are empty and [facility] is aware), they will have to charge $175 for a tank but if pt returns the tank within 2 weeks, they will not actually put the charge thru. Pt updated on this at this time and refuses [employer] tank at this time. She states that she will just use her own oxygen once home, 'it's not that far.' Concha TEJADA aware, voices understanding. This MALLORY SCHUMACHER reinforced again for pt to call [facility] once home to get tanks delivered. Pt voices no further questions/concerns/needs at this time. Pt is awaiting dispo. Monik TEJADA CM Original Note: Per Concha TEJADA, pt does not have any portable tanks at home. Call to Flower at [facility] and she states that pt has not called to have portable tanks refilled since sometime last year. She states that pt just needs to call in and ask for new tanks. Pt updated at this time and states that she has tried to call but states it was not the [employer] number. Pt provided with [employer] number and Flower/Vianca's names so that she can speak with them directly. Concha TEJADA updated and [facility] will provide tank when pt ready to go home. Pt voices no further questions/concerns/needs at this time. Monik TEJADA CM
[2018-10-03 11:46] LABS: Bedside Glucose 227 mg/dL (70-110)
--- NOTE | 2018-10-03 12:25 | DCINST_ITS ---
- Discharge Diagnoses Current Active Problems: Current Active and Chronic Problems (Last Reviewed 07/27/18 @ 11:56 by Pricila Olson) COPD exacerbation (Acute) Right lower lobe pneumonia (Acute) You will use the following diet at home:: Cardiac Your food should be the consistency of: Regular Discharge Activity: Return to Normal Activity Weight Bearing Status: Weight bearing as tolerated Call your doctor if you observe: Shortness of breath, Dizziness, Swelling in the ankles, Chest pain Instructions: Warning Signs of a Heart Attack, What Is Angina? Allergies/Adverse Reactions: Allergies latex Allergy (Verified 08/09/18 13:51) Rash prochlorperazine [From Compazine] Allergy (Verified 08/09/18 13:51) Unknown levofloxacin [From Levaquin] Adverse Reaction (Verified 08/09/18 13:51) PT CAN'T REMEMBER PT CAN'T REMEMBER metoclopramide HCl [From Reglan] Adverse Reaction (Verified 08/09/18 13:51) Nausea NSAIDS (Non-Steroidal Anti-Inflamma Adverse Reaction (Verified 08/09/18 13:51) kidney function oxycodone HCl [From Percocet] Adverse Reaction (Verified 08/09/18 13:51) HALLUCINATIONS Medications to take at Discharge Aspirin [Aspirin, Baby] 81 mg PO DAILY@0800 01/26/16 Calcium Acetate [Phoslo Gel Cap] 1,334 mg PO TIDCM 01/26/16 Ergocalciferol [Vitamin D] 50,000 unit PO MO 01/26/16 Insulin Aspart [Novolog Flexpen] 10 units SC TIDCM 01/26/16 Insulin Glargine,Hum.rec.anlog [Lantus] 4 unit SQ QHS 01/09/17 proMETHazine tablet [Phenergan tablet] 25 mg PO Q6H PRN PRN #10 tab 03/06/17 Lisinopril 20 mg PO DAILY 03/29/17 Sodium Bicarbonate 650 mg PO 4X/DAY 03/29/17 Atorvastatin Calcium [Lipitor] 20 mg PO QHS 05/26/18 Carvedilol [Coreg] 25 mg PO BID 05/26/18 Loperamide HCl [Imodium A-D] 2 mg PO TID PRN 05/26/18 Pantoprazole Sodium [Protonix] 20 mg PO BID 05/26/18 Clopidogrel Bisulfate [Plavix] 75 mg PO DAILY 07/01/18 Albuterol Aerosols [Ventolin Aerosols] 2.5 mg INHALATION Q2H PRN PRN #30 vial.neb. 07/03/18 ALPRAZolam [Xanax] 0.5 mg PO PRN PRN 08/09/18 B Complex W-C No.20/Folic Acid [Nephrocaps Softgel] 1 mg PO DAILY 08/09/18 Fluoxetine HCl 40 mg PO DAILY 08/09/18 Hydroxyzine HCl 50 mg PO TUTHSA 08/09/18 Isosorbide Mononitrate [Imdur] 60 mg PO DAILY 08/09/18 Nystatin Powder [Mycostatin Powder] 1 applic TOPICAL BID #1 bottle 08/11/18 Lidocaine/Prilocaine HCl [Emla Cream W/Tegaderm] 1 applicatio TOPICAL X1 10/01/18 Primary Care Physician: Christopher Foy MD [Primary Care Provider] - Please follow up with your Primary Care Physician in: one week Test Results: Test results from this visit will be discussed in further detail at your follow- up appointment, if applicable. Please Follow Up With: Mark Magdaleno MD When: 1-2 weeks Proposed Discharge Date: 10/03/18
--- NOTE | 2018-10-03 13:06 | DS.PCM_ITS ---
Discharge Date and Diagnosis Date of Admission: 10/01/18 Date of Discharge: 10/03/18 - Primary Discharge Diagnosis Active and Suspected Problems (Last Reviewed 07/27/18 @ 11:56 by Pricila Olson) COPD exacerbation (Acute) influenza infection - Secondary Discharge Diagnosis Chronic Problems (Last Reviewed 07/27/18 @ 11:56 by Pricila Olson) CAD (coronary artery disease) (Chronic) Stented coronary artery (Chronic 02/26/18) FFR of LAD 0.82; VIKY of mid LAD with 2.5 X 24 mm Promus Synergy, OM <50% stenosis per Dr. Magdaleno @ [facility] Atherosclerotic heart disease of [place] coronary artery without angina pectoris (Chronic) S/P PTCA/VIKY to mid LAD in February 2018 OM #1 noted to be 50%; ESRD (end stage renal disease) on dialysis (Chronic) Decubitus ulcer, stage III (Chronic) Anemia, chronic disease (Chronic) Pilonidal cyst with abscess (Chronic) GABRIEL (obstructive sleep apnea) (Chronic) Depression (Chronic) Anxiety (Chronic) HTN (hypertension) (Chronic) Nonischemic cardiomyopathy (Chronic) EF 45% per echo 07/01/2018 S/P repair of PDA (patent ductus arteriosus) (Chronic) At young age Diabetes mellitus type 1 (Chronic) Hyperlipidemia (Chronic) Obesity (BMI 30.0-34.9) (Chronic) Gastroparesis (Chronic) Hospital Course and Treatment Imaging Results: Diagnostic Data Chest X-Ray 10/02/18 05:55 IMPRESSION: Stable diffuse bilateral interstitial infiltrates worse at the lung bases. Electronically Signed: Josh Hill, at 9:25 EDT , Service support , Consultations 10/02/18 02:57 Consult: Onc/Wound/ornament stitcher Routine Comment: Reason for Consult:: gluteal cleft-old pressure injury with new weeping and sore nephrology Operations: None Procedures: Stress test Summary of Care Provided: The patient is a 42 year old F with an extensive past medical history as listed below. She was admitted through the ED from [facility] emergency room with a complaint of chest pain which was midsternal and not started the night prior to admission. She also had a stat shortness of breath with flulike symptoms and a fever, chills and cough for 3 days prior to admission. Chest x-ray done showed fairly linear right basilar airspace disease which may represent atelectasis or infiltrate. Initial troponin was mildly elevated at 0.506. Her proBNP was more than 35,000 but patient had ESRD on hemodialysis so this was not very accurate. She was admitted and managed for chest pain to rule out ACS. She had a stress test which was negative. She tested positive for influenza and was started on Tamiflu 30 mg to take after dialysis. Nephrology was consulted for dialysis. Patient remained stable and was discharged on 10/20/2018. She is follow-up with her primary care doctor, spindle sander and vice president of sales. Of note, during the stress test was negative, it showed EF of 29% and a previous EF had been around 45%. This was discussed with her spindle sander Dr. Magdaleno on phone who wanted patient follow-up with him on outpatient basis as he did not think the EF. The stress test was very accurate. Incident examined prior to discharge. She had no complaints and felt well. She was saturating well on her baseline 2 L of oxygen. Review of systems otherwise negative. Labs and vitals reviewed. Home medication reviewed and reconciled. o/e: [] Vital Signs Height 5 ft 6 in Weight: 201 lb 15.095 oz Weight in Pounds 201.9 lbs Pulse Ox 98 Temperature 97.8 F Pulse Rate 83 Respiratory Rate 14 Blood Pressure 116/56 Blood Pressure Position Sitting General: Alert, Oriented x3, Cooperative, No apparent distress HEENT: Atraumatic, PERRLA, EOMI, Normocephalic Oral: Moist Mucosa Neck: Supple, No JVD, Negative Carotid Bruits Lungs: Clear to auscultation, Normal air movement, No rhonchi, No wheeze, No rales Cardiovascular: Regular rate, Regular Rhythm, Normal S1, Normal S2, No murmurs Abdomen: Bowel Sounds Present, Soft, Non Tender, Non-Distended, No Hepato- splenomegaly. colostomy bag in place Extremities: No clubbing, No cyanosis, No edema, Capillary Refill Less than 3 Seconds Skin: No rashes, No breakdown Musculoskeletal: No Tenderness to Palpation of Joints or Extremities, - - LUE AV fistula with a good thrill Lymphatic: No Cervical, Supraclavicular, or Inguinal Adenopathy Neurological: Cranial nerves II-XII grossly intact, Neuro grossly intact, Motor Exam 5/5 strength throughout Psych/Mental Status: Normal Affect, Appropriate, Alert and oriented to time, place, person, mood and affect SHe was discharged with a script for Tamiflu for 4 tablets to take after dialysis. Rest of management as above. - Physical Exam Vital Signs Temp Pulse Resp BP Pulse Ox 97.8 F 82 17 122/69 H 95 10/03/18 09:05 10/03/18 09:05 10/03/18 09:05 10/03/18 09:05 10/03/18 09:05 Oxygen Flow Rate (L/min) 2 Oxygen Delivery Method Nasal Cannula Weight: 201 lb 15.095 oz Body Mass Index (BMI) 32.1 Finger Stick Blood Glucose 118 Intake and Output for Last 24 Hours 10/01/18 10/02/18 10/03/18 23:59 23:59 23:59 Intake Total 342 / 342 368 / 368 720 / 720 Output Total 2100 / 2100 Balance 342 / 342 -1732 / -1732 720 / 720 Microbiology Past 72 Hours 10/01/18 20:30 Respiratory Panel (PCR) - Final Mucosa - Nasopharyngeal Influenza A (Subtype H3) 10/02/18 02:05 Legionella Antigen - Final Urine, Clean Catch 10/02/18 02:05 Streptococcus pneumoniae Antigen (M - Final Urine, Clean Catch 10/01/18 23:47 Stool Occult Blood (SCARLET) - Final Stool Occult Blood Positive Laboratory Tests Past 24 Hrs 10/03/18 10/03/18 05:40 05:40 WBC 4.9 RBC 2.91 L Hgb 9.0 L Hct 30.4 L MCV 104.5 H MCH 30.9 MCHC 29.6 L RDW 16.5 H RDW Differential 59.9 H Plt Count 146 L MPV 9.3 Immature Gran % (Auto) 1.200 H Neut % (Auto) 72.9 H Lymph % (Auto) 17.5 L Wolfe % (Auto) 3.1 Eos % (Auto) 5.1 H Baso % (Auto) 0.2 Absolute Neuts (auto) 3.6 Absolute Lymphs (auto) 0.85 Total Counted Not Reportable Sodium 140 Potassium 4.1 Chloride 99 Carbon Dioxide 31.0 Anion Gap 10 BUN 41 H Creatinine 4.98 H Estim Creat Clear Calc 13.50 Est GFR (MDRD) Af Amer 12 L Est GFR (MDRD) Non-Af 10 L BUN/Creatinine Ratio 8.2 L Glucose 204 H Calcium 8.1 L POC Glucose 10/03/18 10/03/18 10/03/18 11:31 06:52 02:11 POC Glucose 227 H 217 H 209 H 10/02/18 10/02/18 21:18 17:12 POC Glucose 263 H 161 H Discharge Diet: Renal Diet Discharge Activity: Return to Normal Activity Weight Bearing Status: Weight bearing as tolerated Call your doctor if you observe: Shortness of breath, Dizziness, Swelling in the ankles, Chest pain Home Medications: Medications to take at Discharge Aspirin [Aspirin, Baby] 81 mg PO DAILY@0800 01/26/16 Calcium Acetate [Phoslo Gel Cap] 1,334 mg PO TIDCM 01/26/16 Ergocalciferol [Vitamin D] 50,000 unit PO MO 01/26/16 Insulin Aspart [Novolog Flexpen] 10 units SC TIDCM 01/26/16 Insulin Glargine,Hum.rec.anlog [Lantus] 4 unit SQ QHS 01/09/17 proMETHazine tablet [Phenergan tablet] 25 mg PO Q6H PRN PRN #10 tab 03/06/17 Lisinopril 20 mg PO DAILY 03/29/17 Sodium Bicarbonate 650 mg PO 4X/DAY 03/29/17 Atorvastatin Calcium [Lipitor] 20 mg PO QHS 05/26/18 Carvedilol [Coreg] 25 mg PO BID 05/26/18 Loperamide HCl [Imodium A-D] 2 mg PO TID PRN 05/26/18 Pantoprazole Sodium [Protonix] 20 mg PO BID 05/26/18 Clopidogrel Bisulfate [Plavix] 75 mg PO DAILY 07/01/18 Albuterol Aerosols [Ventolin Aerosols] 2.5 mg INHALATION Q2H PRN PRN #30 vial.neb. 07/03/18 ALPRAZolam [Xanax] 0.5 mg PO PRN PRN 08/09/18 B Complex W-C No.20/Folic Acid [Nephrocaps Softgel] 1 mg PO DAILY 08/09/18 Fluoxetine HCl 40 mg PO DAILY 08/09/18 Hydroxyzine HCl 50 mg PO TUTHSA 08/09/18 Isosorbide Mononitrate [Imdur] 60 mg PO DAILY 08/09/18 Nystatin Powder [Mycostatin Powder] 1 applic TOPICAL BID #1 bottle 08/11/18 Lidocaine/Prilocaine HCl [Emla Cream W/Tegaderm] 1 applicatio TOPICAL X1 10/01/18 Oseltamivir Phosphate [Tamiflu] 30 mg PO UD #4 capsule 10/03/18 Following Prescrptions Were Given to Patient: Oseltamivir Phosphate [Tamiflu] 30 mg PO UD #4 capsule Primary Care Physician: Christopher Foy MD [Primary Care Provider] - Please follow up with your Primary Care Physician in: one week Please Follow Up With: Mark Magdaleno MD When: 1-2 weeks Patient Instructions: What Is Angina?, Warning Signs of a Heart Attack Disposition: Home Minutes spent on discharge:: 40 Patient Condition:: Stable Medical Necessity - Tobacco Use Smoking Status: Current some day smoker Meaningful Use Info Meaningful Use Diagnoses (Choose all that apply): None applicable Code Visit Inpatient E&M: 96022 Disch Hosp
== END 2018-10-03 13:26 | disposition home or self-care (01) | DRG 193 ==
PROVIDERS: Admitting Provider Internal Medicine; Family Provider Family Medicine; PCP Family Medicine; Referring Provider Internal Medicine; Visit Provider Student in an Organized Health Care Education/Training Program
DX: J10.1 Influenza due to other identified influenza virus with other respiratory manifestations (principal); N18.6 End stage renal disease; I12.0 Hypertensive chronic kidney disease with stage 5 chronic kidney disease or end stage renal disease; J96.11 Chronic respiratory failure with hypoxia; J44.1 Chronic obstructive pulmonary disease with (acute) exacerbation; I25.10 Atherosclerotic heart disease of native coronary artery without angina pectoris; R07.89 Other chest pain; E78.5 Hyperlipidemia, unspecified; E10.22 Type 1 diabetes mellitus with diabetic chronic kidney disease; G47.33 Obstructive sleep apnea (adult) (pediatric); Z99.2 Dependence on renal dialysis; Z99.81 Dependence on supplemental oxygen; E10.43 Type 1 diabetes mellitus with diabetic autonomic (poly)neuropathy; K31.84 Gastroparesis; D64.9 Anemia, unspecified; Z93.3 Colostomy status; F17.200 Nicotine dependence, unspecified, uncomplicated; Z79.4 Long term (current) use of insulin; Z95.5 Presence of coronary angioplasty implant and graft; Z87.74 Personal history of (corrected) congenital malformations of heart and circulatory system; E66.9 Obesity, unspecified; Z68.32 Body mass index [BMI] 32.0-32.9, adult; F41.9 Anxiety disorder, unspecified
CPT/HCPCS: 36415; 71046; 78452; 80048; 80053; 80061; 81002; 82274; 82962; 83880; 84443; 84484; 85025; 85610; 85730; 87040; 87449; 87633; 90937; 93005; 93017; 94640; 94667; 99406; A9500; J7030; A4216; G0257; J2785

== ENCOUNTER 2018-10-14 06:58 | Observation (INO) | payer MEDICARE, MEDICAID, SELFPAY ==
[2018-10-14] VITALS (22 sets, daily range): BP systolic 135–167; BP diastolic 78–103; PULSE 91–108; RESP 16–32; TEMP 36.3–36.9; O2SAT 81–98; BMI 33.1; BMI 32.5
--- NOTE | 2018-10-14 07:24 | EKG12_ITS ---
Test Reason : CP Blood Pressure : / mmHG Vent. Rate : 097 BPM Atrial Rate : 097 BPM P-R Int : 122 ms QRS Dur : 090 ms QT Int : 362 ms P-R-T Axes : 060 064 173 degrees QTc Int : 459 ms Normal sinus rhythm Cannot rule out Anterior infarct , age undetermined Abnormal ECG Confirmed by DIVINA BEASLEY, SUSI ([id number]), managing editor LISBETH KIDD ([id number]) on 10/15/2018 1:05:56 PM Referred By: Confirmed By:SUSI MURCIA MD
[2018-10-14 07:34] LABS: Absolute Lymphocyte Count 0.85 X10^3/ul (0.83-4.51); Absolute Neutrophil Count 5.1 X10^3/uL (2.0-7.7); Basophil# 0.02 X10^3/uL; Basophil% 0.3 % (0-1); Eosinophil# 0.37 X10^3/uL; Eosinophils% 5.6 % (0-5); Hematocrit 32.8 % (37-47); Lymphocyte # 0.85 X10^3/ul (4.0); Mean Corp Hgb Conc 30.5 g/gl (32-36); Mean Corpuscular Hgb 30.9 pg (27.0-32.0); Mean Corpuscular Volume 101.2 fL (81-99); Monocyte# 0.23 X10^3/uL; Monocyte% 3.5 % (0-10); Neutrophil # 5.05 X10^3/uL (2.7-7.7); Neutrophil % 77.1 % (47-70); Platelet Count 144 K/mm3 (150-450); RBC Distribution Width CV 17.8 % (11.6-14.6); RBC Distribution Width SD 64.9 fl (35.1-43.9); Red Blood Count 3.24 M/mm3 (4.2-5.4); White Blood Count 6.6 K/mm3 (4.4-11.0)
[2018-10-14] MEDS: Ipratropium/Albuterol Sulfate 3 ML AMPUL.NEB INHALATION ×5 (07:34→23:01)
--- NOTE | 2018-10-14 07:36 | ED.VISSUMM ---
- ER Visit Summary Date of Service: 10/14/18 Chief Complaint: Shortness of breath History of Present Illness: The patient is a 42 F who presents with shortness of breath that has been getting worse over the past 3 days. Patient states her breathing is worse when she lays flat or exerts herself. Patient admits to a cough but denies any sputum production. Patient admits to some rhinorrhea. Patient states she has some pain in her chest that radiates into her back. Patient describes the pain is sharp. Patient states the pain is over the substernal area. Patient admits to some nausea and vomiting. Patient denies any diaphoresis. Patient admits to subjective chills but denies any fevers. Patient has a history of end-stage renal disease and is on dialysis. Patient states she takes dialysis on Tuesdays, , and Saturdays. Patient had dialysis yesterday without any difficulty. Physical Examination: Vital signs are stable except for pulse ox of 81% on room air. Patient is afebrile. Patient is in no acute distress. Oral mucosa is pink and moist. Neck is supple. Trachea is midline. There is no JVD noted. Heart was regular rate and rhythm. Lungs showed mild expiratory wheezing. There is good respiratory effort noted. Abdomen is soft. Bowel sounds are normal. There is no tenderness. Extremities are intact. There is no edema noted. Cranial nerves II through XII are intact. There are no focal motor or sensory deficits noted. Test Results: EKG showed normal sinus rhythm with a rate of 97. There are no acute ST or T wave changes. Chest x-ray was read by the radiologist which showed increasing bibasilar airspace disease and infiltrates. CBC shows a mild anemia with a hemoglobin of 10.0. This was improved from previous result. Basic metabolic profile showed a creatinine of 6.08 and a BUN of 49. These are chronic for the patient. Troponin was 0.079. This was improved from previous result. Lactate was normal at 1.8. Arterial blood gas showed a pH of 7.43, PCO2 of 39.6, PO2 of 68, bicarb of 26.4, and oxygen saturation 94% on 1 L nasal cannula. Emergency Department Course and Treatment: Patient was given a DuoNeb here. Patient's wheezing improved. Patient was given Zofran for her nausea and vomiting. Patient was feeling somewhat better on reevaluation. Case was discussed with the hospitalist. He will admit the patient for observation. Patient and family understood and were agreeable with the plan. All questions were answered. Disposition: Admit for observation Impression: Hypoxic respiratory distress This note was generated with [employer] dictation software. It may contain incorrect words, spelling, and punctuation that were not noted in review of the chart prior to signing ED Disposition - Plan for ED Patient: Disposition: Acute Care Hospital [facility] Diagnosis: Hypoxia, Respiratory distress Referrals: Christopher Foy MD [Primary Care Provider] -
[2018-10-14 07:37] LABS: POSITIVE COUNT NO; POSITIVE DIFFERENTIAL NO
[2018-10-14 07:38] LABS: POSITIVE MORPHOLOGY NO
--- NOTE | 2018-10-14 07:40 | RAD_ITS ---
STUDY: X-RAY CHEST REASON FOR EXAM: Female, 42 years old. Shortness of breath with dyspnea TECHNIQUE: PA and lateral views of the chest. COMPARISON: October 02, 2018 FINDINGS: Stable mildly hyperinflated lungs. Increased patchy airspace disease and bibasilar infiltrates bilaterally. No focal consolidation or effusions. There is no demonstrated pleural abnormality. There is borderline cardiomegaly. Normal mediastinum and latrell. Normal visualized pulmonary arteries. Normal visualized aortic arch and descending thoracic aorta. There are diffuse degenerative changes of the visualized thoracic spine. Normal visualized ribs, clavicles, and shoulders. There is no demonstrated abnormality of the visualized soft tissue structures of the upper abdomen. RAD/Chest PA and Lateral IMPRESSION: COPD. Increased bibasilar patchy airspace disease and infiltrates Electronically Signed: Quincy Pulido DO at 8:15 EDT Tel , Service support ,
[2018-10-14 07:47] LABS: Anion Gap 12 (5-15); BUN 49 mg/dL (7-18); BUN/Creat Ratio 8.1 RATIO (10-20); Calcium,Total 9.1 mg/dL (8.5-10.1); Chloride 98 mmol/L (98-107); Creatinine, Serum 6.08 mg/dL (0.55-1.02); EST Glomerular Filtration Rate 8 mL/min (>60); Est Glom Filt Rate - Afr Amer 10 mL/min (>60); Estimated Creatinine Clearance 11.05 ml/min; Glucose 212 mg/dL (74-106); Potassium 5.1 mmol/L (3.5-5.1); Sodium Level 139 mmol/L (136-145)
[2018-10-14 07:50] LABS: Lactic Acid 1.8 mmol/L (0.4-2.0)
[2018-10-14] MEDS: Morphine 4 MG/ML Syringe IV (08:16)
[2018-10-14] MEDS: Ondansetron 4 MG/2 ML Vial IV ×2 (08:18→12:39)
[2018-10-14 08:41] LABS: Base Excess 2 mmol/L (-2 to +2); Bicarbonate 26.4 mmol/L (22-26); Blood Gas Specimen Type ART; O2 Delivery Device Nasal Can; PO2 68 mmHG (75-100); SITE R Radial; SO2 94 % (95-99); Time Given 834; Total Carbon Dioxide 28 mmol/L; pCO2 39.6 mmHg (35-45); pH 7.43 (7.35-7.45)
[2018-10-14] MEDS: proMETHazine 25 MG/ML Syringe 6.25 MG IV (09:04)
[2018-10-14 11:11] LABS: Bedside Glucose 181 mg/dL (70-110)
--- NOTE | 2018-10-14 11:43 | HP.PCM_ITS ---
Problem List (1) Bronchitis Status: Acute (2) Cellulitis Status: Inactive Qualifiers: (3) COPD exacerbation Status: Acute (4) Right lower lobe pneumonia Status: Inactive (5) Hypoxia Status: Acute (6) Respiratory distress Status: Acute (7) CAD (coronary artery disease) Status: Chronic Qualifiers: (8) Nausea & vomiting Status: Inactive (9) Stented coronary artery Status: Chronic Comment: FFR of LAD 0.82; VIKY of mid LAD with 2.5 X 24 mm Promus Synergy, OM <50% stenosis per Dr. Magdaleno @ [facility] (10) Atherosclerotic heart disease of [place] coronary artery without angina pectoris Status: Chronic Qualifiers: Comment: S/P PTCA/VIKY to mid LAD in February 2018 OM #1 noted to be 50%; (11) Migraine Status: Inactive Qualifiers: (12) Metabolic encephalopathy Status: Inactive (13) Abnormal electrocardiogram [ECG] [EKG] Status: Inactive (14) Chest pain Status: Inactive Qualifiers: (15) Tooth abscess Status: Inactive (16) Intractable nausea and vomiting Status: Inactive Qualifiers: (17) Pneumonia Status: Inactive (18) ESRD (end stage renal disease) on dialysis Status: Chronic (19) Pulmonary edema Status: Inactive (20) Hyperkalemia Status: Inactive (21) Atypical chest pain Status: Inactive (22) Acute hypoxic respiratory failure Status: Inactive (23) Pulmonary edema Status: Inactive (24) Decubitus ulcer, stage III Status: Chronic (25) Clostridium difficile enterocolitis Status: Inactive (26) Necrotizing myositis Status: Inactive Comment: necrotizing anal sphincter muscle (27) Anemia, chronic disease Status: Chronic (28) Pilonidal cyst with abscess Status: Chronic (29) GABRIEL (obstructive sleep apnea) Status: Chronic (30) Depression Status: Chronic Qualifiers: (31) Anxiety Status: Chronic (32) HTN (hypertension) Status: Chronic Qualifiers: (33) Nonischemic cardiomyopathy Status: Chronic Comment: EF 45% per echo 07/01/2018 (34) S/P repair of PDA (patent ductus arteriosus) Status: Chronic Comment: At young age (33) Diabetes mellitus type 1 Status: Chronic Qualifiers: (36) Hyperlipidemia Status: Chronic Qualifiers: (37) Obesity (BMI 30.0-34.9) Status: Chronic (38) Gastroparesis Status: Chronic History of Present Illness Date of Admission: 10/14/18 Chief Complaint: shortness of breath The patient is a 42 year old F presents with shortness of breath. Patient was just discharged on the with influenza as well as chest pain. Patient was evaluated for chest pain at that time and I had a normal stress test for any acute issues. She had troponin elevation of his 0.3 at that time. Patient not having any chest pain now except for with coughing. Her troponin was 0.079. There is concern for pneumonia as patient was ordered Zosyn but chest x-ray is more consistent with chronic changes. Patient was not have any fever though she did endorse that she was chilled and exit put a executive chairman of the board under her sheets to warm her up because she was so chilled. Patient was noted to be hypoxic at 81% upon arrival. She was put on oxygen and received breathing treatments. Still has been having cough but is essentially nonproductive. Patient does have dry heaves when she coughing fits at times. Patient said that when she went home from having the flu she did feel a bit better but only to get worse days later. Patient was feeling ill on Monday, her dialysis day and they only completed an hour and a half of her dialysis. [] Past Medical History Past Medical History (Chronic Problems): Chronic Problems (Last Reviewed 07/27/18 @ 11:56 by Pricila Olson) CAD (coronary artery disease) (Chronic) Stented coronary artery (Chronic 02/26/18) FFR of LAD 0.82; VIKY of mid LAD with 2.5 X 24 mm Promus Synergy, OM <50% stenosis per Dr. Magdaleno @ [facility] Atherosclerotic heart disease of [place] coronary artery without angina pectoris (Chronic) S/P PTCA/VIKY to mid LAD in February 2018 OM #1 noted to be 50%; ESRD (end stage renal disease) on dialysis (Chronic) Decubitus ulcer, stage III (Chronic) Anemia, chronic disease (Chronic) Pilonidal cyst with abscess (Chronic) GABRIEL (obstructive sleep apnea) (Chronic) Depression (Chronic) Anxiety (Chronic) HTN (hypertension) (Chronic) Nonischemic cardiomyopathy (Chronic) EF 45% per echo 07/01/2018 S/P repair of PDA (patent ductus arteriosus) (Chronic) At young age Diabetes mellitus type 1 (Chronic) Hyperlipidemia (Chronic) Obesity (BMI 30.0-34.9) (Chronic) Gastroparesis (Chronic) Medical History: Medical History (Last Reviewed 10/14/18 @ 11:43 by Roberto Roman DO) Atherosclerotic heart disease of [place] coronary artery without angina pectoris (Chronic) I25.10 S/P PTCA/VIKY to mid LAD in February 2018 OM #1 noted to be 50%; ESRD (end stage renal disease) on dialysis (Chronic) N18.6, Z99.2 Decubitus ulcer, stage III (Chronic) L89.93 Anemia, chronic disease (Chronic) D63.8 Pilonidal cyst with abscess (Chronic) L05.01 GABRIEL (obstructive sleep apnea) (Chronic) G47.33 HTN (hypertension) (Chronic) I10 Nonischemic cardiomyopathy (Chronic) I42.8 EF 45% per echo 07/01/2018 Diabetes mellitus type 1 (Chronic) Hyperlipidemia (Chronic) E78.5 Obesity (BMI 30.0-34.9) (Chronic) E66.9 Gastroparesis (Chronic) K31.84 Allergies latex Allergy (Verified 10/14/18 07:03) Rash prochlorperazine [From Compazine] Allergy (Verified 10/14/18 07:03) Unknown levofloxacin [From Levaquin] Adverse Reaction (Verified 10/14/18 07:03) PT CAN'T REMEMBER PT CAN'T REMEMBER metoclopramide HCl [From Reglan] Adverse Reaction (Verified 10/14/18 07:03) Nausea NSAIDS (Non-Steroidal Anti-Inflamma Adverse Reaction (Verified 10/14/18 07:03) kidney function oxycodone HCl [From Percocet] Adverse Reaction (Verified 10/14/18 07:03) HALLUCINATIONS Home Medications: Ambulatory Orders Medication Instructions Recorded Aspirin [Aspirin, Baby] 81 mg PO DAILY@0800 01/26/16 Calcium Acetate [Phoslo Gel Cap] 1,334 mg PO TIDCM 01/26/16 Ergocalciferol [Vitamin D] 50,000 unit PO MO 01/26/16 Insulin Aspart [Novolog Flexpen] 10 units SC TIDCM 01/26/16 Insulin Glargine,Hum.rec.anlog 4 unit SQ QHS 01/09/17 [Lantus] proMETHazine tablet [Phenergan 25 mg PO Q6H PRN PRN #10 tab 03/06/17 tablet] Lisinopril 20 mg PO DAILY 03/29/17 Sodium Bicarbonate 650 mg PO 4X/DAY 03/29/17 Atorvastatin Calcium [Lipitor] 20 mg PO QHS 05/26/18 Carvedilol [Coreg] 25 mg PO BID 05/26/18 Loperamide HCl [Imodium A-D] 2 mg PO TID PRN 05/26/18 Pantoprazole Sodium [Protonix] 20 mg PO BID 05/26/18 Clopidogrel Bisulfate [Plavix] 75 mg PO DAILY 07/01/18 Albuterol Aerosols [Ventolin 2.5 mg INHALATION Q2H PRN PRN #30 07/03/18 Aerosols] vial.neb. ALPRAZolam [Xanax] 0.5 mg PO PRN PRN 08/09/18 B Complex W-C No.20/Folic Acid 1 mg PO DAILY 08/09/18 [Nephrocaps Softgel] Fluoxetine HCl 40 mg PO DAILY 08/09/18 Hydroxyzine HCl 50 mg PO TUTHSA 08/09/18 Isosorbide Mononitrate [Imdur] 60 mg PO DAILY 08/09/18 Lidocaine/Prilocaine HCl [Emla 1 applicatio TOPICAL X1 10/01/18 Cream W/Tegaderm] Nystatin Powder [Mycostatin Powder] 1 applic TOPICAL BID 10/14/18 Surgical History: Surgical History (Last Reviewed 10/14/18 @ 11:43 by Roberto Roman DO) Stented coronary artery (Chronic) Onset Date: 02/26/18 Z95.5 FFR of LAD 0.82; VIKY of mid LAD with 2.5 X 24 mm Promus Synergy, OM <50% stenosis per Dr. Magdaleno @ [facility] S/P repair of PDA (patent ductus arteriosus) (Chronic) Z98.890, Z87.74 At young age Surgical History: appendectomy, hysterectomy - and BSO, - - c-sections, L breast I+D for abscess, fistula placement LUE, L ankle surgery, appendectomy, PDA repair. Excision pilonidal cyst ulcer about 4 years ago. Colostomy placed due to rectal abscess/wound, patent ductus repair, drug-eluting stent placement left anterior descending coronary artery February 2018. Smoking Status: Current some day smoker Tobacco Use: Cigarettes - *Family History Maternal History Items: Cancer, COPD, Diabetes, Hypertension, Renal Disease, Stroke Paternal History Items: Diabetes Sibling History Items: Cancer, Diabetes Review of Systems Constitutional: Reports: Chills, Malaise, Weakness. Denies: Anorexia, Fever Eyes: Denies: Blurred vision, Double vision HEENT: Denies: Head Aches, Sinus Congestion, Sinus Drainage Cardiovascular: Denies: Chest Pain, Palpitations Respiratory: Reports: Cough, Shortness of Breath. Denies: Sputum production Gastrointestinal: Reports: Nausea, Vomiting. Denies: Abdominal Pain Genitourinary: Denies: Dysuria Musculoskeletal: Denies: Joint Pain, Joint Tenderness Skin: Denies: Rash, Wounds Neurological: Denies: Numbness, Tingling, Focal weakness Psychiatric: Denies: Anxiety, Depression Endocrine: Denies: Change in Body Habitus, Heat/ Cold Intolerance Hematologic/ Lymphatic: Denies: Easy Bruising, Easy Bleeding, Hx of blood clot Comment: A 10 point review of systems were negative except as mentioned in the history of present illness and the other review of systems. VTE Information - Inpt Only VTE Present on Admission: No VTE Mechan Device Prophylaxis: None VTE Pharm Prophylaxis ordered?: Yes Patient Problems: Active and Suspected Problems (Last Reviewed 07/27/18 @ 11:56 by Pricila Olson) Hypoxia (Acute) Respiratory distress (Acute) Bronchitis (Acute) - Physical Exam General: Alert, Cooperative, No apparent distress HEENT: Atraumatic, Normocephalic, - - No sinus tenderness Oral: Moist Mucosa, No Gingival or Mucosal Lesions/ Ulcerations Neck: No Nodes, Thyroid Normal Size and Texture Lungs: Clear to auscultation, No wheeze, Diminished Cardiovascular: Regular rate, Regular Rhythm, Normal S1, Normal S2 Abdomen: Bowel Sounds Present, Soft, Non Tender, Non-Distended, Obese Extremities: No edema, No Calf Tenderness, - - Palpable bruit in the left upper extremity fistula Skin: No rashes, No breakdown Musculoskeletal: No Tenderness to Palpation of Joints or Extremities, No Muscle Wasting Neurological: Neuro grossly intact, Coordination normal Psych/Mental Status: Appropriate, Flat Affect Vital Signs Temp Pulse Resp BP Pulse Ox 36.4 C L 104 H 22 H 147/101 H 98 10/14/18 10:19 10/14/18 10:10/14/18 10:19 10/14/18 10:19 10/14/18 10:19 Oxygen Flow Rate (L/min) 3 Oxygen Delivery Method Nasal Cannula Weight: 91.6 kg Body Mass Index (BMI) 32.5 Finger Stick Blood Glucose 118 Laboratory Tests Past 24 Hrs 10/14/18 10/14/18 10/14/18 07:06 07:06 07:06 WBC 6.6 RBC 3.24 L Hgb 10.0 L Hct 32.8 L MCV 101.2 H MCH 30.9 MCHC 30.5 L RDW 17.8 H RDW Differential 64.9 H Plt Count 144 L MPV 10.0 Immature Gran % (Auto) 0.500 Neut % (Auto) 77.1 H Lymph % (Auto) 13.0 L Finney % (Auto) 3.5 Eos % (Auto) 5.6 H Baso % (Auto) 0.3 Absolute Neuts (auto) 5.1 Absolute Lymphs (auto) 0.85 Total Counted Not Reportable Specimen Type Sample Site pH Bicarbonate Actual POC Total CO2 Base Excess O2 Saturation ABG pCO2 ABG pO2 Ellis Test O2 Delivery Device Liter Flow Blood Gas Notified Whom Blood Gas Notified Time Sodium 139 Potassium 5.1 Chloride 98 Carbon Dioxide 29.0 Anion Gap 12 BUN 49 H Creatinine 6.08 H Estim Creat Clear Calc 11.05 Est GFR (MDRD) Af Amer 10 L Est GFR (MDRD) Non-Af 8 L BUN/Creatinine Ratio 8.1 L Glucose 212 H Lactic Acid 1.8 Calcium 9.1 Troponin I 0.079 H 10/14/18 08:34 WBC RBC Hgb Hct MCV MCH MCHC RDW RDW Differential Plt Count MPV Immature Gran % (Auto) Neut % (Auto) Lymph % (Auto) Finney % (Auto) Eos % (Auto) Baso % (Auto) Absolute Neuts (auto) Absolute Lymphs (auto) Total Counted Specimen Type ART Sample Site R Radial pH 7.43 Bicarbonate Actual 26.4 H POC Total CO2 28 Base Excess 2 O2 Saturation 94 L ABG pCO2 39.6 ABG pO2 68 L Ellis Test NA O2 Delivery Device Nasal Can Liter Flow 1.0 Blood Gas Notified Whom ED Blood Gas Notified Time 834 Sodium Potassium Chloride Carbon Dioxide Anion Gap BUN Creatinine Estim Creat Clear Calc Est GFR (MDRD) Af Amer Est GFR (MDRD) Non-Af BUN/Creatinine Ratio Glucose Lactic Acid Calcium Troponin I POC Glucose 10/14/18 11:07 POC Glucose 181 H Chest x-ray reviewed and chronic changes in the bases. Does appear improved from October 02. Assessment/Plan All Active Problems (Last Reviewed 07/27/18 @ 11:56 by Pricila Olson) COPD exacerbation (Acute) Hypoxia (Acute) Respiratory distress (Acute) Bronchitis (Acute) Dysmenorrhea (Resolved) Hx of necrotizing fascIItis (Resolved) Iron deficiency anemia due to chronic blood loss (Resolved) Systolic congestive heart failure (Resolved) 1. Acute hypoxic respiratory distress: Secondary to COPD as well as bronchitis. Treat the underlying processes. Wean oxygen as tolerated. Check an ambulatory pulse ox prior to discharge. 2. Suspected acute viral bronchitis: As mentioned previously, I do not feel the patient has pneumonia. Antibiotics will be held. Patient will be on bronchodilators as well as his own. We will check a respiratory viral panel. 3. Acute exacerbation of COPD: Treatment as will be per bronchitis. Likely exacerbated by bronchitis. 4. Elevated troponin: Dissection down from when she was here earlier this month. Patient does not have any chest pain. Patient had a stress test that was negative for any acute issues when she was here last time. Given the absence of symptoms, I will not pursue this any further unless new symptoms do arise. 5. End-stage renal disease: Patient on dialysis every Monday. Patient did not complete her dialysis session on Monday because of feeling ill. We will consult nephrology to see her tomorrow to see if dialysis would need to be done earlier than it would be on the . No urgent need for dialysis today. 6. Diabetes mellitus type 2: Continue with her home meds plus sliding scale. 7. DVT prophylaxis with subcu heparin. Code Visit OBSV E&M: 79296 Initial observation care L3
[2018-10-14] MEDS: guaiFENesin/Codeine 5 ML UDC 10 ML PO ×2 (12:02→19:54)
[2018-10-14] MEDS: Acetaminophen 325 MG Tablet 650 MG PO ×2 (12:02→20:16)
[2018-10-14] MEDS: predniSONE 20 MG Tablet 40 MG PO (12:34)
[2018-10-14] MEDS: Calcium Acetate 667 MG Capsule 1334 MG PO ×2 (12:34→16:39)
[2018-10-14] MEDS: Insulin Lispro 100 UNIT/ML INSULN.PEN 10 UNIT SC ×2 (12:41→16:38)
[2018-10-14] MEDS: Sodium Bicarbonate 650 MG Tablet PO ×3 (14:24→22:29)
[2018-10-14] MEDS: Heparin Injection (Vial) 5,000 UNIT/ML VIAL 5000 UNIT SC ×2 (14:24→22:28)
[2018-10-14] MEDS: ALPRAZolam 0.5 MG Tablet PO (14:28)
[2018-10-14] MEDS: Insulin Lispro 100 UNIT/ML INSULN.PEN SQ (16:39)
[2018-10-14 16:45] LABS: Bedside Glucose 259 mg/dL (70-110)
--- NOTE | 2018-10-14 18:00 | NURSING ---
pt c/o chest pain at a 9 vitals 158/87, hr 103, resp 26, 93% on l . notified dr aleman. ekg ordered.
--- NOTE | 2018-10-14 18:01 | EKG12_ITS ---
Test Reason : CP Blood Pressure : / mmHG Vent. Rate : 104 BPM Atrial Rate : 104 BPM P-R Int : 128 ms QRS Dur : 098 ms QT Int : 358 ms P-R-T Axes : 055 071 247 degrees QTc Int : 470 ms Sinus tachycardia Anterior infarct , age undetermined ST & T wave abnormality, consider inferior ischemia Abnormal ECG When compared with ECG of 14-OCT-2018 07:05, MANUAL COMPARISON REQUIRED, DATA IS UNCONFIRMED Confirmed by DIVINA BEASLEY, SUSI ([id number]), marketing editor LISBETH KIDD ([id number]) on 10/16/2018 1:14:57 PM Referred By: Alireza Kulkarni Confirmed By:SUSI MURCIA MD
[2018-10-14] MEDS: proMETHazine 25 MG Tablet PO (19:53)
[2018-10-14] MEDS: Carvedilol 25 MG Tablet PO (20:12)
[2018-10-14] MEDS: Lisinopril 20 MG Tablet PO ×2 (20:13→20:14)
[2018-10-14] MEDS: Isosorbide Mononitrate 60 MG Tablet PO ×2 (20:14)
[2018-10-14] MEDS: Atorvastatin Calcium 20 MG Tablet PO (22:29)
[2018-10-14] MEDS: Pantoprazole Sodium 20 MG Tablet PO (22:29)
[2018-10-14] MEDS: Nystatin Powder 15gm Bottle 1 APPLIC TOPICAL (22:29)
--- NOTE | 2018-10-14 22:47 | NURSING ---
lab notified of stat lab at this time.
--- NOTE | 2018-10-14 22:48 | NURSING ---
Pts fingerstick glucose 497. Pt is asymptomatic. Denies any symptoms of hyperglycemia.
[2018-10-14 23:21] LABS: Glucose 518 mg/dL (74-106)
[2018-10-15] VITALS (11 sets, daily range): BP systolic 128–135; BP diastolic 65–70; PULSE 74–93; RESP 16–24; TEMP 36.4–37.2; O2SAT 96–98
[2018-10-15] MEDS: Insulin Lispro 100 UNIT/ML INSULN.PEN SQ ×4 (00:19→12:17)
[2018-10-15 01:56] LABS: Bedside Glucose 497 mg/dL (70-110)
[2018-10-15] MEDS: Ipratropium/Albuterol Sulfate 3 ML AMPUL.NEB INHALATION ×3 (03:05→10:18)
[2018-10-15 03:36] LABS: Bedside Glucose 318 mg/dL (70-110)
[2018-10-15] MEDS: Heparin Injection (Vial) 5,000 UNIT/ML VIAL 5000 UNIT SC (06:07)
[2018-10-15 06:31] LABS: Anion Gap 10 (5-15); BUN 69 mg/dL (7-18); BUN/Creat Ratio 9.3 RATIO (10-20); Calcium,Total 9.3 mg/dL (8.5-10.1); Chloride 98 mmol/L (98-107); Creatinine, Serum 7.38 mg/dL (0.55-1.02); EST Glomerular Filtration Rate 6 mL/min (>60); Est Glom Filt Rate - Afr Amer 8 mL/min (>60); Estimated Creatinine Clearance 9.11 ml/min; Glucose 205 mg/dL (74-106); Potassium 5.7 mmol/L (3.5-5.1); Sodium Level 137 mmol/L (136-145)
[2018-10-15] MEDS: Insulin Lispro 100 UNIT/ML INSULN.PEN 10 UNIT SC ×2 (07:27→12:17)
[2018-10-15] MEDS: Aspirin 81 MG TAB.CHEW PO (07:28)
[2018-10-15] MEDS: predniSONE 20 MG Tablet 40 MG PO (07:29)
[2018-10-15] MEDS: Calcium Acetate 667 MG Capsule 1334 MG PO ×2 (07:29→12:19)
[2018-10-15 07:35] LABS: Bedside Glucose 155 mg/dL (70-110)
--- NOTE | 2018-10-15 09:11 | NURSING ---
Colostomy appliance had come off per patient. patient does not have supplies with her. stoma is beefy red and sits just above the skin level. peristomal skin is intact. applied a 2 piece convex [place] appliance. pt states she does not use paste so no paste was used. pt tolerated well.
[2018-10-15] MEDS: Nystatin Powder 15gm Bottle 1 APPLIC TOPICAL (09:21)
[2018-10-15] MEDS: FLUoxetine 20 MG Capsule 40 MG PO (09:22)
[2018-10-15] MEDS: Folic Acid/Vitamin B Comp W-C 1 Capsule 1 CAP PO (09:22)
[2018-10-15] MEDS: Sodium Bicarbonate 650 MG Tablet PO ×2 (09:23→13:31)
[2018-10-15] MEDS: Pantoprazole Sodium 20 MG Tablet PO (09:23)
[2018-10-15] MEDS: Clopidogrel Bisulfate 75 MG Tablet PO (09:23)
[2018-10-15] MEDS: Carvedilol 25 MG Tablet PO (09:24)
--- NOTE | 2018-10-15 10:11 | DCINST_ITS ---
- Discharge Diagnoses Current Active Problems: Current Active and Chronic Problems (Last Reviewed 10/14/18 @ 11:43 by Roberto Roman DO) Hypoxia (Acute) Respiratory distress (Acute) Bronchitis (Acute) You will use the following diet at home:: Calorie/Carbohydrate Controlled (specify 1200, 1400, etc) - 1800, Cardiac Your food should be the consistency of: Regular Your liquids should be the consistency of: Regular/Thin Discharge Activity: Return to Normal Activity Call your doctor if you observe: Fever of 101 or Higher, Shortness of breath Allergies/Adverse Reactions: Allergies latex Allergy (Verified 10/14/18 07:03) Rash prochlorperazine [From Compazine] Allergy (Verified 10/14/18 07:03) Unknown levofloxacin [From Levaquin] Adverse Reaction (Verified 10/14/18 07:03) PT CAN'T REMEMBER PT CAN'T REMEMBER metoclopramide HCl [From Reglan] Adverse Reaction (Verified 10/14/18 07:03) Nausea NSAIDS (Non-Steroidal Anti-Inflamma Adverse Reaction (Verified 10/14/18 07:03) kidney function oxycodone HCl [From Percocet] Adverse Reaction (Verified 10/14/18 07:03) HALLUCINATIONS Medications to take at Discharge Aspirin [Aspirin, Baby] 81 mg PO DAILY@0800 01/26/16 Calcium Acetate [Phoslo Gel Cap] 1,334 mg PO TIDCM 01/26/16 Ergocalciferol [Vitamin D] 50,000 unit PO MO 01/26/16 Insulin Aspart [Novolog Flexpen] 10 units SC TIDCM 01/26/16 Insulin Glargine,Hum.rec.anlog [Lantus] 4 unit SQ QHS 01/09/17 proMETHazine tablet [Phenergan tablet] 25 mg PO Q6H PRN PRN #10 tab 03/06/17 Lisinopril 20 mg PO DAILY 03/29/17 Sodium Bicarbonate 650 mg PO 4X/DAY 03/29/17 Atorvastatin Calcium [Lipitor] 20 mg PO QHS 05/26/18 Carvedilol [Coreg] 25 mg PO BID 05/26/18 Loperamide HCl [Imodium A-D] 2 mg PO TID PRN 05/26/18 Pantoprazole Sodium [Protonix] 20 mg PO BID 05/26/18 Clopidogrel Bisulfate [Plavix] 75 mg PO DAILY 07/01/18 ALPRAZolam [Xanax] 0.5 mg PO PRN PRN 08/09/18 B Complex W-C No.20/Folic Acid [Nephrocaps Softgel] 1 mg PO DAILY 08/09/18 Fluoxetine HCl 40 mg PO DAILY 08/09/18 Hydroxyzine HCl 50 mg PO TUTHSA 08/09/18 Isosorbide Mononitrate [Imdur] 60 mg PO DAILY 08/09/18 Lidocaine/Prilocaine HCl [Emla Cream W/Tegaderm] 1 applicatio TOPICAL X1 10/01/18 Nystatin Powder [Mycostatin Powder] 1 applic TOPICAL BID 10/14/18 Acetaminophen [Tylenol Tablet] 500 mg PO Q4H PRN tablet 10/15/18 Albuterol Aerosols [Ventolin Aerosols] 2.5 mg INHALATION Q2H PRN PRN #30 vial.neb. 10/15/18 Guaifenesin/Codeine [Robitussin AC] 10 ml PO Q6H PRN PRN #250 ml 10/15/18 Nebulizer [Compact Compressor Nebulizer] 1 each MC Q2H PRN #1 each 10/15/18 predniSONE tablet 2 tab PO DAILY@0800 #6 tablet 10/15/18 The following prescriptions were given: Albuterol Aerosols [Ventolin Aerosols] 2.5 mg INHALATION Q2H PRN PRN #30 vial.ne b. PRN Reason: SHORTNESS OF BREATH Guaifenesin/Codeine [Robitussin AC] 10 ml PO Q6H PRN PRN #250 ml PRN Reason: coughing fits Nebulizer [Compact Compressor Nebulizer] 1 each MC Q2H PRN #1 each PRN Reason: Shortness Of Breath predniSONE tablet 2 tab PO DAILY@0800 #6 tablet Primary Care Physician: Christopher Foy MD [Primary Care Provider] - Within 2 Weeks Test Results: Test results from this visit will be discussed in further detail at your follow- up appointment, if applicable. [facility]18 Proposed Discharge Date: 10/15/18
--- NOTE | 2018-10-15 10:16 | DS.PCM_ITS ---
Discharge Date and Diagnosis - Problem List Patient Problems: Active and Suspected Problems (Last Reviewed 10/14/18 @ 11:43 by Roberto Roman DO) Hypoxia (Acute) Respiratory distress (Acute) Bronchitis (Acute) Date of Admission: 10/14/18 Date of Discharge: 10/15/18 - Primary Discharge Diagnosis Active and Suspected Problems (Last Reviewed 10/14/18 @ 11:43 by Roberto Roman DO) Hypoxia (Acute) Respiratory distress (Acute) Bronchitis (Acute) 1. Acute hypoxic respiratory distress: Improved. Secondary to COPD as well as bronchitis. Treat the underlying processes. Wean oxygen as tolerated. Check an ambulatory pulse ox prior to discharge. 2. Suspected acute viral bronchitis: No pneumonia. Patient will be on bronchodilators as well as prednisone for total of 5 days. Respiratory viral panel negative. 3. Acute exacerbation of COPD: Treatment as will be per bronchitis. Likely exacerbated by bronchitis. 4. Elevated troponin: Down from when she was here earlier this month. Chest pain due to rib pain/costochondritis. EKG unchanged. Patient had a stress test that was negative for any acute issues when she was here last time. 5. End-stage renal disease: Patient on dialysis every Monday. Patient did not complete her dialysis session on Monday because of feeling ill. DW Dr. Martinez, who stated that the patient can follow up for her regularly scheduled dialysis on 10/16. - Secondary Discharge Diagnosis Chronic Problems (Last Reviewed 10/14/18 @ 11:43 by Roberto Roman DO) CAD (coronary artery disease) (Chronic) Stented coronary artery (Chronic 02/26/18) FFR of LAD 0.82; VIKY of mid LAD with 2.5 X 24 mm Promus Synergy, OM <50% stenosis per Dr. Magdaleno @ [facility] Atherosclerotic heart disease of [place] coronary artery without angina pectoris (Chronic) S/P PTCA/VIKY to mid LAD in February 2018 OM #1 noted to be 50%; ESRD (end stage renal disease) on dialysis (Chronic) Decubitus ulcer, stage III (Chronic) Anemia, chronic disease (Chronic) Pilonidal cyst with abscess (Chronic) GABRIEL (obstructive sleep apnea) (Chronic) Depression (Chronic) Anxiety (Chronic) HTN (hypertension) (Chronic) Nonischemic cardiomyopathy (Chronic) EF 45% per echo 07/01/2018 S/P repair of PDA (patent ductus arteriosus) (Chronic) At young age Diabetes mellitus type 1 (Chronic) Hyperlipidemia (Chronic) Obesity (BMI 30.0-34.9) (Chronic) Gastroparesis (Chronic) Hospital Course and Treatment Operations: None Summary of Care Provided: The patient is a 42 year old F presents with shortness of breath. [place] to be related with acute exacerbation of COPD as well as bronchitis. Respiratory viral panel here was negative the patient previously did have influenza during her last admission. Patient was on steroids and slowly improved. Patient is having paroxysms of cough but has improved with cough syrup with guaifenesin and codeine. Overall patient is stable and better. Patient will have an amatory pulse ox prior to discharge and received prednisone to complete a total of 5 days. Additionally, patient will receive prescription for cough syrup with codeine in it to help suppress her cough. Chest x-ray is abnormal but is been chronic at baseline so I do not appreciate any pneumonia. Additionally, patient did not have any fever nor any white count to support treatment of pneumonia. I did not feel the patient had systemic inflammatory response space patient was tachypneic due to her respiratory distress and her heart rate elevation may been associated with that as well. [] Patient Problems: Active and Suspected Problems (Last Reviewed 10/14/18 @ 11:43 by Roberto Roman DO) Hypoxia (Acute) Respiratory distress (Acute) Bronchitis (Acute) - Physical Exam General: Alert, No apparent distress, - - paroxysms of coughing fits HEENT: Atraumatic, Normocephalic Neck: No Nodes, Thyroid Normal Size and Texture Lungs: Clear to auscultation, Normal air movement, No rhonchi, No wheeze Cardiovascular: Regular rate, Regular Rhythm, Normal S1, Normal S2, No murmurs Vital Signs Temp Pulse Resp BP Pulse Ox 36.4 C L 93 18 128/65 H 96 10/15/18 03:31 10/15/18 07:20 10/15/18 07:20 10/15/18 03:31 10/15/18 08:08 Oxygen Flow Rate (L/min) 2 Oxygen Delivery Method Nasal Cannula Weight: 95.8 kg Body Mass Index (BMI) 32.5 Finger Stick Blood Glucose 118 Intake and Output for Last 24 Hours 10/13/18 10/14/18 10/15/18 23:59 23:59 23:59 Intake Total 1050 / 1050 520 / 520 Output Total 550 / 550 Balance 1050 / 1050 -30 / -30 Microbiology Past 72 Hours 10/14/18 11:58 Respiratory Panel (PCR) - Final Mucosa - Nose Laboratory Tests Past 24 Hrs 10/14/18 10/14/18 10/14/18 18:25 22:05 22:05 Sodium Potassium Chloride Carbon Dioxide Anion Gap BUN Creatinine Estim Creat Clear Calc Est GFR (MDRD) Af Amer Est GFR (MDRD) Non-Af BUN/Creatinine Ratio Glucose 518 H* Calcium Troponin I 0.061 H 0.053 H 10/15/18 10/15/18 00:49 05:54 Sodium 137 Potassium 5.7 H Chloride 98 Carbon Dioxide 29.0 Anion Gap 10 BUN 69 H Creatinine 7.38 H Estim Creat Clear Calc 9.11 Est GFR (MDRD) Af Amer 8 L Est GFR (MDRD) Non-Af 6 L BUN/Creatinine Ratio 9.3 L Glucose 205 H Calcium 9.3 Troponin I 0.069 H POC Glucose 10/15/18 10/15/18 10/14/18 07:25 03:16 22:19 POC Glucose 155 H 318 H 497 H* 10/14/18 10/14/18 16:34 11:07 POC Glucose 259 H 181 H Discharge Diet: Low fat/ Low Cholesterol, 1800 Calorie Control Diet Discharge Activity: Return to Normal Activity Call your doctor if you observe: Fever of 101 or Higher, Shortness of breath Home Medications: Medications to take at Discharge Aspirin [Aspirin, Baby] 81 mg PO DAILY@0800 01/26/16 Calcium Acetate [Phoslo Gel Cap] 1,334 mg PO TIDCM 01/26/16 Ergocalciferol [Vitamin D] 50,000 unit PO MO 01/26/16 Insulin Aspart [Novolog Flexpen] 10 units SC TIDCM 01/26/16 Insulin Glargine,Hum.rec.anlog [Lantus] 4 unit SQ QHS 01/09/17 proMETHazine tablet [Phenergan tablet] 25 mg PO Q6H PRN PRN #10 tab 03/06/17 Lisinopril 20 mg PO DAILY 03/29/17 Sodium Bicarbonate 650 mg PO 4X/DAY 03/29/17 Atorvastatin Calcium [Lipitor] 20 mg PO QHS 05/26/18 Carvedilol [Coreg] 25 mg PO BID 05/26/18 Loperamide HCl [Imodium A-D] 2 mg PO TID PRN 05/26/18 Pantoprazole Sodium [Protonix] 20 mg PO BID 05/26/18 Clopidogrel Bisulfate [Plavix] 75 mg PO DAILY 07/01/18 ALPRAZolam [Xanax] 0.5 mg PO PRN PRN 08/09/18 B Complex W-C No.20/Folic Acid [Nephrocaps Softgel] 1 mg PO DAILY 08/09/18 Fluoxetine HCl 40 mg PO DAILY 08/09/18 Hydroxyzine HCl 50 mg PO TUTHSA 08/09/18 Isosorbide Mononitrate [Imdur] 60 mg PO DAILY 08/09/18 Lidocaine/Prilocaine HCl [Emla Cream W/Tegaderm] 1 applicatio TOPICAL X1 10/01/18 Nystatin Powder [Mycostatin Powder] 1 applic TOPICAL BID 10/14/18 Acetaminophen [Tylenol Tablet] 500 mg PO Q4H PRN tablet 10/15/18 Albuterol Aerosols [Ventolin Aerosols] 2.5 mg INHALATION Q2H PRN PRN #30 vial.neb. 10/15/18 Guaifenesin/Codeine [Robitussin AC] 10 ml PO Q6H PRN PRN #250 ml 10/15/18 Nebulizer [Compact Compressor Nebulizer] 1 each MC Q2H PRN #1 each 10/15/18 predniSONE tablet 2 tab PO DAILY@0800 #6 tablet 10/15/18 Following Prescrptions Were Given to Patient: Albuterol Aerosols [Ventolin Aerosols] 2.5 mg INHALATION Q2H PRN PRN #30 vial.neb. PRN Reason: SHORTNESS OF BREATH Guaifenesin/Codeine [Robitussin AC] 10 ml PO Q6H PRN PRN #250 ml PRN Reason: coughing fits Nebulizer [Compact Compressor Nebulizer] 1 each MC Q2H PRN #1 each PRN Reason: Shortness Of Breath predniSONE tablet 2 tab PO DAILY@0800 #6 tablet Primary Care Physician: Christopher Foy MD [Primary Care Provider] - Within 2 Weeks [facility] Disposition: Home Minutes spent on discharge:: 32 Patient Condition:: Fair Medical Necessity - Tobacco Use Smoking Status: Current some day smoker Tobacco Use: Cigarettes Meaningful Use Info Meaningful Use Diagnoses (Choose all that apply): None applicable Code Visit OBSV E&M: 15518 Observation care discharge
--- NOTE | 2018-10-15 12:03 | PCM.CONS.R ---
Problem List (1) ESRD (end stage renal disease) on dialysis Status: Chronic Consultation - Renal 10/15/18 PCP/ Referring MD: Requesting physician: ESRD Primary care physician: Christopher Foy MD Reason for Consultation:: ESRD - History of Present Illness History of Present Illness: The patient is a 42 year old F admitted with worsening dyspnea for the last 2 days. known history of COPD, required O2 supplements recent Flu positive, resp viral panel negative breathing is ok now - Allergies Allergies: Allergies latex Allergy (Verified 10/14/18 07:03) Rash prochlorperazine [From Compazine] Allergy (Verified 10/14/18 07:03) Unknown levofloxacin [From Levaquin] Adverse Reaction (Verified 10/14/18 07:03) PT CAN'T REMEMBER PT CAN'T REMEMBER metoclopramide HCl [From Reglan] Adverse Reaction (Verified 10/14/18 07:03) Nausea NSAIDS (Non-Steroidal Anti-Inflamma Adverse Reaction (Verified 10/14/18 07:03) kidney function oxycodone HCl [From Percocet] Adverse Reaction (Verified 10/14/18 07:03) HALLUCINATIONS - Current Medications Current Medications: Current Medications Acetaminophen (Tylenol) 650 mg PO Q6H PRN PRN PRN Reason: PAIN Last Admin: 10/14/18 20:16 Dose: 650 mg Albuterol Sulfate (Ventolin Aerosols) 2.5 mg INHALATION Q2H PRN PRN PRN Reason: SHORTNESS OF BREATH Albuterol/Ipratropium (Duoneb) 3 ml INHALATION Q4H.RT [facility] Last Admin: 10/15/18 10:18 Dose: 3 ml Alprazolam (Xanax) 0.5 mg PO DAILY PRN PRN Reason: ANXIETY Last Admin: 10/14/18 14:28 Dose: 0.5 mg Aspirin (Aspirin, Baby) 81 mg PO DAILY@0800 [facility] Last Admin: 10/15/18 07:28 Dose: 81 mg Atorvastatin Calcium (Lipitor) 20 mg PO QHS [facility] Last Admin: 10/14/18 22:29 Dose: 20 mg Calcium Acetate (Phoslo Gel Cap) 1,334 mg PO TIDCM [facility] Last Admin: 10/15/18 07:29 Dose: 1,334 mg Carvedilol (Coreg) 25 mg PO BID [facility] Last Admin: 10/15/18 09:24 Dose: 25 mg Clopidogrel Bisulfate (Plavix) 75 mg PO DAILY [facility] Last Admin: 10/15/18 09:23 Dose: 75 mg Cyclobenzaprine HCl (Flexeril) 10 mg PO TID PRN PRN PRN Reason: spasms/back pain Last Admin: 10/15/18 00:18 Dose: 10 mg Dextrose (D50w Syringe) 0 gm IV X1 PRN; Protocol PRN Reason: Hypoglycemia Ergocalciferol (Vitamin D) 50,000 unit PO MO [facility] Last Admin: 10/15/18 09:23 Dose: 50,000 unit Fluoxetine HCl (Prozac) 40 mg PO DAILY [facility] Last Admin: 10/15/18 09:22 Dose: 40 mg Glucagon () 1 mg IM .X1 PRN PRN Reason: Hypoglycemia Guaifenesin/Codeine Phosphate (Robitussin Ac) 10 ml PO Q6H PRN PRN PRN Reason: coughing fits Last Admin: 10/14/18 19:54 Dose: 10 ml Heparin Sodium (Porcine) (Heparin Na) 5,000 unit SC Q8 [facility] Last Admin: 10/15/18 06:07 Dose: 5,000 unit Hydroxyzine Pamoate (Vistaril Pamoate Capsule) 50 mg PO TuThSa [facility] Insulin Glargine (Lantus (Bkc)) 4 units SC QHS [facility] Last Admin: 10/14/18 22:28 Dose: 4 u Insulin Human Lispro (Humalog Kwikpen (Bkc)) 10 unit SC 0800,1200,1700 [facility] Last Admin: 10/15/18 07:27 Dose: 10 u Insulin Human Lispro (Humalog Kwikpen (Bkc)) 0 unit SQ ACHS & 3AM [facility]; Protocol Last Admin: 10/15/18 07:27 Dose: 3 u Isosorbide Mononitrate (Imdur) 60 mg PO DAILY [facility] Last Admin: 10/14/18 20:14 Dose: 60 mg Lidocaine/Prilocaine (Emla Cream W/Tegaderm) 0 gm TOPICAL X1 [facility]; Protocol Last Admin: 10/14/18 12:33 Dose: Not Given Lisinopril (Zestril) 20 mg PO DAILY [facility] Last Admin: 10/14/18 20:14 Dose: 20 mg Loperamide HCl (Imodium) 2 mg PO TID PRN PRN Reason: STOOLING Magnesium Hydroxide (Milk Of Magnesia) 30 ml PO DAILY PRN PRN PRN Reason: Constipation Multivit/Ca Carb/B Cmplx/FA/Prenat (Nephrocaps, Renaphro) 1 capsule PO DAILY [facility] Last Admin: 10/15/18 09:22 Dose: 1 capsule Nystatin (Mycostatin Powder) 1 applic TOPICAL BID [facility]; Protocol Last Admin: 10/15/18 09:21 Dose: 1 applicatio Ondansetron HCl (Zofran) 4 mg IV Q6H PRN PRN PRN Reason: nausea vomiting Last Admin: 10/14/18 12:39 Dose: 4 mg Pantoprazole Sodium (Protonix) 20 mg PO BID [facility] Last Admin: 10/15/18 09:23 Dose: 20 mg Prednisone () 40 mg PO DAILY@0800 [facility] Last Admin: 10/15/18 07:29 Dose: 40 mg Promethazine HCl (Phenergan Tablet) 25 mg PO Q6H PRN PRN PRN Reason: NAUSEA Last Admin: 10/14/18 19:53 Dose: 25 mg Sodium Bicarbonate (Sodium Bicarbonate) 650 mg PO 4X/DAY [facility] Last Admin: 10/15/18 09:23 Dose: 650 mg - Past Medical History Past Medical History (Chronic Problems): Chronic Problems (Last Reviewed 10/14/18 @ 11:43 by Roberto Roman DO) CAD (coronary artery disease) (Chronic) Stented coronary artery (Chronic 02/26/18) FFR of LAD 0.82; VIKY of mid LAD with 2.5 X 24 mm Promus Synergy, OM <50% stenosis per Dr. Magdaleno @ [facility] Atherosclerotic heart disease of [place] coronary artery without angina pectoris (Chronic) S/P PTCA/VIKY to mid LAD in February 2018 OM #1 noted to be 50%; ESRD (end stage renal disease) on dialysis (Chronic) Decubitus ulcer, stage III (Chronic) Anemia, chronic disease (Chronic) Pilonidal cyst with abscess (Chronic) GABRIEL (obstructive sleep apnea) (Chronic) Depression (Chronic) Anxiety (Chronic) HTN (hypertension) (Chronic) Nonischemic cardiomyopathy (Chronic) EF 45% per echo 07/01/2018 S/P repair of PDA (patent ductus arteriosus) (Chronic) At young age Diabetes mellitus type 1 (Chronic) Hyperlipidemia (Chronic) Obesity (BMI 30.0-34.9) (Chronic) Gastroparesis (Chronic) - Past Surgical History Surgical History: appendectomy, hysterectomy - and BSO, - - c-sections, L breast I+D for abscess, fistula placement LUE, L ankle surgery, appendectomy, PDA repair. Excision pilonidal cyst ulcer about 4 years ago. Colostomy placed due to rectal abscess/wound, patent ductus repair, drug-eluting stent placement left anterior descending coronary artery February 2018. - Social History Smoking Status: Current some day smoker - Family History Maternal History Items: Cancer, COPD, Diabetes, Hypertension, Renal Disease, Stroke Paternal History Items: Diabetes Sibling History Items: Cancer, Diabetes Review of Systems Constitutional: Denies: Chills, Fever, Weight Change HEENT: Denies: Head Aches, Sinus Congestion, Sinus Drainage Cardiovascular: Denies: Chest Pain, Palpitations Respiratory: Denies: Cough, Shortness of breath at rest, Sputum production Gastrointestinal: Denies: Abdominal Pain, Nausea, Vomiting Genitourinary: Denies: Dysuria Musculoskeletal: Denies: Joint Pain, Joint Tenderness Skin: Denies: Rash, Wounds Neurological: Denies: Numbness, Tingling, Focal weakness Psychiatric: Denies: Anxiety, Depression, Homicidal Ideations, Suicidal Ideations Hematologic/ Lymphatic: Denies: Easy Bruising, Easy Bleeding Patient Problems: Active and Suspected Problems (Last Reviewed 10/14/18 @ 11:43 by Roberto Roman DO) Hypoxia (Acute) Respiratory distress (Acute) Bronchitis (Acute) - Physical Exam General: Alert, Oriented x3, Cooperative HEENT: Atraumatic, PERRLA, EOMI, Normocephalic Neck: Supple, No JVD, Negative Carotid Bruits Lungs: Clear to auscultation, Normal air movement Cardiovascular: Regular rate, No murmurs Abdomen: Bowel Sounds Present, Soft, Non Tender Extremities: No edema, Capillary Refill Less than 3 Seconds Skin: No rashes, No breakdown Musculoskeletal: No Tenderness to Palpation of Joints or Extremities Neurological: Cranial nerves II-XII grossly intact Psych/Mental Status: Normal Affect, Appropriate Vital Signs Temp Pulse Resp BP Pulse Ox 97.6 F L 77 18 135/70 H 98 10/15/18 09:30 10/15/18 10:18 10/15/18 10:18 10/15/18 09:30 10/15/18 09:30 Oxygen Flow Rate (L/min) 3 Oxygen Delivery Method Nasal Cannula Weight: 95.8 kg Body Mass Index (BMI) 32.5 Finger Stick Blood Glucose 118 Intake and Output for Last 24 Hours 10/13/18 10/14/18 10/15/18 23:59 23:59 23:59 Intake Total 1050 / 1050 520 / 520 Output Total 550 / 550 Balance 1050 / 1050 -30 / -30 Microbiology Past 72 Hours 10/14/18 11:58 Respiratory Panel (PCR) - Final Mucosa - Nose Laboratory Tests Past 24 Hrs 10/14/18 10/14/18 10/14/18 18:25 22:05 22:05 Sodium Potassium Chloride Carbon Dioxide Anion Gap BUN Creatinine Estim Creat Clear Calc Est GFR (MDRD) Af Amer Est GFR (MDRD) Non-Af BUN/Creatinine Ratio Glucose 518 H* Calcium Troponin I 0.061 H 0.053 H 10/15/18 10/15/18 00:49 05:54 Sodium 137 Potassium 5.7 H Chloride 98 Carbon Dioxide 29.0 Anion Gap 10 BUN 69 H Creatinine 7.38 H Estim Creat Clear Calc 9.11 Est GFR (MDRD) Af Amer 8 L Est GFR (MDRD) Non-Af 6 L BUN/Creatinine Ratio 9.3 L Glucose 205 H Calcium 9.3 Troponin I 0.069 H POC Glucose 10/15/18 10/15/18 10/14/18 07:25 03:16 22:19 POC Glucose 155 H 318 H 497 H* 10/14/18 16:34 POC Glucose 259 H Assessment/Plan All Active Problems (Last Reviewed 10/14/18 @ 11:43 by Roberto Roman DO) COPD exacerbation (Acute) Hypoxia (Acute) Respiratory distress (Acute) Bronchitis (Acute) Dysmenorrhea (Resolved) Hx of necrotizing fascIItis (Resolved) Iron deficiency anemia due to chronic blood loss (Resolved) Systolic congestive heart failure (Resolved) ESRD Mild hyperkalemia COPD exacerbation No acute indications for dialysis today K is borderline high but thats likely from hyperglycemia as well glucose control as per primary can wait till dialysis tomorrow carl Roman possible dc today will go to dialysis tomorrow as outpatient
--- NOTE | 2018-10-15 12:06 | CON.PCM_ITS ---
Problem List (1) ESRD (end stage renal disease) on dialysis Status: Chronic Consultation - Renal 10/15/18 PCP/ Referring MD: Requesting physician: ESRD Primary care physician: Christopher Foy MD Reason for Consultation:: ESRD - History of Present Illness History of Present Illness: The patient is a 42 year old F admitted with worsening dyspnea for the last 2 days. known history of COPD, required O2 supplements recent Flu positive, resp viral panel negative breathing is ok now - Allergies Allergies: Allergies latex Allergy (Verified 10/14/18 07:03) Rash prochlorperazine [From Compazine] Allergy (Verified 10/14/18 07:03) Unknown levofloxacin [From Levaquin] Adverse Reaction (Verified 10/14/18 07:03) PT CAN'T REMEMBER PT CAN'T REMEMBER metoclopramide HCl [From Reglan] Adverse Reaction (Verified 10/14/18 07:03) Nausea NSAIDS (Non-Steroidal Anti-Inflamma Adverse Reaction (Verified 10/14/18 07:03) kidney function oxycodone HCl [From Percocet] Adverse Reaction (Verified 10/14/18 07:03) HALLUCINATIONS - Current Medications Current Medications: Current Medications Acetaminophen (Tylenol) 650 mg PO Q6H PRN PRN PRN Reason: PAIN Last Admin: 10/14/18 20:16 Dose: 650 mg Albuterol Sulfate (Ventolin Aerosols) 2.5 mg INHALATION Q2H PRN PRN PRN Reason: SHORTNESS OF BREATH Albuterol/Ipratropium (Duoneb) 3 ml INHALATION Q4H.RT [facility] Last Admin: 10/15/18 10:18 Dose: 3 ml Alprazolam (Xanax) 0.5 mg PO DAILY PRN PRN Reason: ANXIETY Last Admin: 10/14/18 14:28 Dose: 0.5 mg Aspirin (Aspirin, Baby) 81 mg PO DAILY@0800 [facility] Last Admin: 10/15/18 07:28 Dose: 81 mg Atorvastatin Calcium (Lipitor) 20 mg PO QHS [facility] Last Admin: 10/14/18 22:29 Dose: 20 mg Calcium Acetate (Phoslo Gel Cap) 1,334 mg PO TIDCM [facility] Last Admin: 10/15/18 07:29 Dose: 1,334 mg Carvedilol (Coreg) 25 mg PO BID [facility] Last Admin: 10/15/18 09:24 Dose: 25 mg Clopidogrel Bisulfate (Plavix) 75 mg PO DAILY [facility] Last Admin: 10/15/18 09:23 Dose: 75 mg Cyclobenzaprine HCl (Flexeril) 10 mg PO TID PRN PRN PRN Reason: spasms/back pain Last Admin: 10/15/18 00:18 Dose: 10 mg Dextrose (D50w Syringe) 0 gm IV X1 PRN; Protocol PRN Reason: Hypoglycemia Ergocalciferol (Vitamin D) 50,000 unit PO MO [facility] Last Admin: 10/15/18 09:23 Dose: 50,000 unit Fluoxetine HCl (Prozac) 40 mg PO DAILY [facility] Last Admin: 10/15/18 09:22 Dose: 40 mg Glucagon () 1 mg IM .X1 PRN PRN Reason: Hypoglycemia Guaifenesin/Codeine Phosphate (Robitussin Ac) 10 ml PO Q6H PRN PRN PRN Reason: coughing fits Last Admin: 10/14/18 19:54 Dose: 10 ml Heparin Sodium (Porcine) (Heparin Na) 5,000 unit SC Q8 [facility] Last Admin: 10/15/18 06:07 Dose: 5,000 unit Hydroxyzine Pamoate (Vistaril Pamoate Capsule) 50 mg PO TuThSa [facility] Insulin Glargine (Lantus (Bkc)) 4 units SC QHS [facility] Last Admin: 10/14/18 22:28 Dose: 4 u Insulin Human Lispro (Humalog Kwikpen (Bkc)) 10 unit SC 0800,1200,1700 [facility] Last Admin: 10/15/18 07:27 Dose: 10 u Insulin Human Lispro (Humalog Kwikpen (Bkc)) 0 unit SQ ACHS & 3AM [facility]; Protocol Last Admin: 10/15/18 07:27 Dose: 3 u Isosorbide Mononitrate (Imdur) 60 mg PO DAILY [facility] Last Admin: 10/14/18 20:14 Dose: 60 mg Lidocaine/Prilocaine (Emla Cream W/Tegaderm) 0 gm TOPICAL X1 [facility]; Protocol Last Admin: 10/14/18 12:33 Dose: Not Given Lisinopril (Zestril) 20 mg PO DAILY [facility] Last Admin: 10/14/18 20:14 Dose: 20 mg Loperamide HCl (Imodium) 2 mg PO TID PRN PRN Reason: STOOLING Magnesium Hydroxide (Milk Of Magnesia) 30 ml PO DAILY PRN PRN PRN Reason: Constipation Multivit/Ca Carb/B Cmplx/FA/Prenat (Nephrocaps, Renaphro) 1 capsule PO DAILY [facility] Last Admin: 10/15/18 09:22 Dose: 1 capsule Nystatin (Mycostatin Powder) 1 applic TOPICAL BID [facility]; Protocol Last Admin: 10/15/18 09:21 Dose: 1 applicatio Ondansetron HCl (Zofran) 4 mg IV Q6H PRN PRN PRN Reason: nausea vomiting Last Admin: 10/14/18 12:39 Dose: 4 mg Pantoprazole Sodium (Protonix) 20 mg PO BID [facility] Last Admin: 10/15/18 09:23 Dose: 20 mg Prednisone () 40 mg PO DAILY@0800 [facility] Last Admin: 10/15/18 07:29 Dose: 40 mg Promethazine HCl (Phenergan Tablet) 25 mg PO Q6H PRN PRN PRN Reason: NAUSEA Last Admin: 10/14/18 19:53 Dose: 25 mg Sodium Bicarbonate (Sodium Bicarbonate) 650 mg PO 4X/DAY [facility] Last Admin: 10/15/18 09:23 Dose: 650 mg - Past Medical History Past Medical History (Chronic Problems): Chronic Problems (Last Reviewed 10/14/18 @ 11:43 by Roberto Roman DO) CAD (coronary artery disease) (Chronic) Stented coronary artery (Chronic 02/26/18) FFR of LAD 0.82; VIKY of mid LAD with 2.5 X 24 mm Promus Synergy, OM <50% stenosis per Dr. Magdaleno @ [facility] Atherosclerotic heart disease of [place] coronary artery without angina pectoris (Chronic) S/P PTCA/VIKY to mid LAD in February 2018 OM #1 noted to be 50%; ESRD (end stage renal disease) on dialysis (Chronic) Decubitus ulcer, stage III (Chronic) Anemia, chronic disease (Chronic) Pilonidal cyst with abscess (Chronic) GABRIEL (obstructive sleep apnea) (Chronic) Depression (Chronic) Anxiety (Chronic) HTN (hypertension) (Chronic) Nonischemic cardiomyopathy (Chronic) EF 45% per echo 07/01/2018 S/P repair of PDA (patent ductus arteriosus) (Chronic) At young age Diabetes mellitus type 1 (Chronic) Hyperlipidemia (Chronic) Obesity (BMI 30.0-34.9) (Chronic) Gastroparesis (Chronic) - Past Surgical History Surgical History: appendectomy, hysterectomy - and BSO, - - c-sections, L breast I+D for abscess, fistula placement LUE, L ankle surgery, appendectomy, PDA repair. Excision pilonidal cyst ulcer about 4 years ago. Colostomy placed due to rectal abscess/wound, patent ductus repair, drug-eluting stent placement left anterior descending coronary artery February 2018. - Social History Smoking Status: Current some day smoker - Family History Maternal History Items: Cancer, COPD, Diabetes, Hypertension, Renal Disease, Stroke Paternal History Items: Diabetes Sibling History Items: Cancer, Diabetes Review of Systems Constitutional: Denies: Chills, Fever, Weight Change HEENT: Denies: Head Aches, Sinus Congestion, Sinus Drainage Cardiovascular: Denies: Chest Pain, Palpitations Respiratory: Denies: Cough, Shortness of breath at rest, Sputum production Gastrointestinal: Denies: Abdominal Pain, Nausea, Vomiting Genitourinary: Denies: Dysuria Musculoskeletal: Denies: Joint Pain, Joint Tenderness Skin: Denies: Rash, Wounds Neurological: Denies: Numbness, Tingling, Focal weakness Psychiatric: Denies: Anxiety, Depression, Homicidal Ideations, Suicidal Ideations Hematologic/ Lymphatic: Denies: Easy Bruising, Easy Bleeding Patient Problems: Active and Suspected Problems (Last Reviewed 10/14/18 @ 11:43 by Roberto Roman DO) Hypoxia (Acute) Respiratory distress (Acute) Bronchitis (Acute) - Physical Exam General: Alert, Oriented x3, Cooperative HEENT: Atraumatic, PERRLA, EOMI, Normocephalic Neck: Supple, No JVD, Negative Carotid Bruits Lungs: Clear to auscultation, Normal air movement Cardiovascular: Regular rate, No murmurs Abdomen: Bowel Sounds Present, Soft, Non Tender Extremities: No edema, Capillary Refill Less than 3 Seconds Skin: No rashes, No breakdown Musculoskeletal: No Tenderness to Palpation of Joints or Extremities Neurological: Cranial nerves II-XII grossly intact Psych/Mental Status: Normal Affect, Appropriate Vital Signs Temp Pulse Resp BP Pulse Ox 97.6 F L 77 18 135/70 H 98 10/15/18 09:30 10/15/18 10:18 10/15/18 10:18 10/15/18 09:30 10/15/18 09:30 Oxygen Flow Rate (L/min) 3 Oxygen Delivery Method Nasal Cannula Weight: 95.8 kg Body Mass Index (BMI) 32.5 Finger Stick Blood Glucose 118 Intake and Output for Last 24 Hours 10/13/18 10/14/18 10/15/18 23:59 23:59 23:59 Intake Total 1050 / 1050 520 / 520 Output Total 550 / 550 Balance 1050 / 1050 -30 / -30 Microbiology Past 72 Hours 10/14/18 11:58 Respiratory Panel (PCR) - Final Mucosa - Nose Laboratory Tests Past 24 Hrs 10/14/18 10/14/18 10/14/18 18:25 22:05 22:05 Sodium Potassium Chloride Carbon Dioxide Anion Gap BUN Creatinine Estim Creat Clear Calc Est GFR (MDRD) Af Amer Est GFR (MDRD) Non-Af BUN/Creatinine Ratio Glucose 518 H* Calcium Troponin I 0.061 H 0.053 H 10/15/18 10/15/18 00:49 05:54 Sodium 137 Potassium 5.7 H Chloride 98 Carbon Dioxide 29.0 Anion Gap 10 BUN 69 H Creatinine 7.38 H Estim Creat Clear Calc 9.11 Est GFR (MDRD) Af Amer 8 L Est GFR (MDRD) Non-Af 6 L BUN/Creatinine Ratio 9.3 L Glucose 205 H Calcium 9.3 Troponin I 0.069 H POC Glucose 10/15/18 10/15/18 10/14/18 07:25 03:16 22:19 POC Glucose 155 H 318 H 497 H* 10/14/18 16:34 POC Glucose 259 H Assessment/Plan All Active Problems (Last Reviewed 10/14/18 @ 11:43 by Roberto Roman DO) COPD exacerbation (Acute) Hypoxia (Acute) Respiratory distress (Acute) Bronchitis (Acute) Dysmenorrhea (Resolved) Hx of necrotizing fascIItis (Resolved) Iron deficiency anemia due to chronic blood loss (Resolved) Systolic congestive heart failure (Resolved) ESRD Mild hyperkalemia COPD exacerbation No acute indications for dialysis today K is borderline high but thats likely from hyperglycemia as well glucose control as per primary can wait till dialysis tomorrow carl Roman possible dc today will go to dialysis tomorrow as outpatient
[2018-10-15 12:26] LABS: Bedside Glucose 271 mg/dL (70-110)
[2018-10-15] MEDS: guaiFENesin/Codeine 5 ML UDC 10 ML PO (13:30)
[2018-10-15] MEDS: Acetaminophen 325 MG Tablet 650 MG PO (13:30)
== END 2018-10-15 14:25 | disposition home or self-care (01) ==
LOC: ED 09:09 → MS3 09:30
PROVIDERS: Hospitalist; Emergency Provider Emergency Medicine; Family Provider Family Medicine; PCP Family Medicine
DX: J44.1 Chronic obstructive pulmonary disease with (acute) exacerbation (principal); I12.0 Hypertensive chronic kidney disease with stage 5 chronic kidney disease or end stage renal disease; N18.6 End stage renal disease; Z99.2 Dependence on renal dialysis; I25.10 Atherosclerotic heart disease of native coronary artery without angina pectoris; G47.33 Obstructive sleep apnea (adult) (pediatric); Z95.5 Presence of coronary angioplasty implant and graft; E78.5 Hyperlipidemia, unspecified; E11.22 Type 2 diabetes mellitus with diabetic chronic kidney disease; E66.9 Obesity, unspecified; Z68.34 Body mass index [BMI] 34.0-34.9, adult; Z71.3 Dietary counseling and surveillance; Z79.899 Other long term (current) drug therapy; Z79.4 Long term (current) use of insulin; Z79.02 Long term (current) use of antithrombotics/antiplatelets; Z79.82 Long term (current) use of aspirin; R94.31 Abnormal electrocardiogram [ECG] [EKG]; R00.0 Tachycardia, unspecified; Z87.891 Personal history of nicotine dependence; E87.5 Hyperkalemia
CPT/HCPCS: 36415; 36600; 71046; 80048; 82803; 82947; 82962; 83605; 84484; 85025; 87040; 87633; 93005; 94640; 94660; 96367; 96372; 96374; 96375; 96376; 99218; 99283; 99406; A4216; G0378; J2405

== ENCOUNTER 2018-10-25 14:35 | Emergency (ER) | payer MEDICARE, SELFPAY ==
[2018-10-14 10:10] VITALS: BMI 32.5
[2018-10-25 14:37] VITALS: BP 146/75; PULSE 92; RESP 18; TEMP 36.9; O2SAT 97; BMI 34.2
--- NOTE | 2018-10-25 15:12 | ED.DCSUM_ITS ---
- ER Visit Summary Date of Service: 10/25/18 Chief Complaint: Fistula site bleeding History of Present Illness: The patient is a 42 F who has a history of end-stage renal disease. She completed about two thirds of her dialysis today but then stopped because of muscle cramping. They discontinue dialysis, but her fistula continued to bleed after removal of her needles. Pressure dressing was applied. Patient denies any other complaints or symptoms. She said she gets muscle cramping from time to time. She normally takes Flexeril for this. Physical Examination: Afebrile and vital signs unremarkable. Alert and oriented. No acute distress. Heart regular. Lungs clear. Abdomen soft. Patient exhibits no tremors. Good muscle tone, symmetric strength and sensation. Left upper extremity fistula has a dressing applied. Test Results: None performed Emergency Department Course and Treatment: Dressing was removed. Bleeding had stopped. Gelfoam was applied and a pressure dressing was reapplied. Patient had no further bleeding. Patient was treated with Flexeril for her muscle spasms. There are no other concerning findings on exam or in her history. Patient will be discharged. Follow-up with dialysis as planned. Treatment Plan: As above Disposition: Discharge Impression: 1. Attention to dialysis fistula This note was generated with [employer] dictation software. It may contain incorrect words, spelling, and punctuation that were not noted in review of the chart prior to signing ED Disposition - Plan for ED Patient: Referrals: Christopher Foy MD [Primary Care Provider] -
--- NOTE | 2018-10-25 15:12 | ED.DEP ---
ED Disposition - Plan for ED Patient: Diagnosis: ESRD (end stage renal disease) on dialysis Prescriptions: Cyclobenzaprine [Flexeril] 10 mg PO TID PRN #20 tab PRN Reason: Muscle Spasm Referrals: Christopher Foy MD [Primary Care Provider] -
[2018-10-25 15:38] VITALS: BP 148/75; PULSE 94; RESP 16; O2SAT 98
== END 2018-10-25 16:29 | disposition home or self-care (01) ==
PROVIDERS: Emergency Provider Emergency Medicine; Family Provider Family Medicine; PCP Family Medicine
DX: T80.89XA Other complications following infusion, transfusion and therapeutic injection, initial encounter (principal); N18.6 End stage renal disease; I25.10 Atherosclerotic heart disease of native coronary artery without angina pectoris; I12.9 Hypertensive chronic kidney disease with stage 1 through stage 4 chronic kidney disease, or unspecified chronic kidney disease; J44.9 Chronic obstructive pulmonary disease, unspecified; E78.00 Pure hypercholesterolemia, unspecified; Z72.0 Tobacco use; E11.22 Type 2 diabetes mellitus with diabetic chronic kidney disease
CPT/HCPCS: 99284

== ENCOUNTER 2018-11-06 13:57 | Observation (INO) | payer MEDICARE, SELFPAY ==
[2018-11-06] VITALS (11 sets, daily range): BP systolic 115–160; BP diastolic 50–145; PULSE 85–94; RESP 15–24; TEMP 36.4–36.8; O2SAT 91–96; BMI 33.0; BMI 33.1
--- NOTE | 2018-11-06 14:23 | RAD_ITS ---
STUDY: X-RAY CHEST REASON FOR EXAM: Female, 42 years old. Chest pain. TECHNIQUE: Single AP portable view of the chest. COMPARISON: Comparison is made with prior study of October 14, 2018. FINDINGS: EKG electrodes are seen. There is evidence of vascular congestion and CHF with mild bibasilar atelectasis. Small right pleural effusion. There is mild cardiac enlargement. Normal mediastinum and latrell. Normal visualized pulmonary arteries. Normal visualized aortic arch and descending thoracic aorta. Normal visualized thoracic spine. Normal visualized ribs, clavicles, and shoulders. There is no demonstrated abnormality of the visualized soft tissue structures of the upper abdomen. RAD/Chest 1 View (Portable) IMPRESSION: CHF. Small right pleural effusion. Mild cardiomegaly. Electronically Signed: Josh Hill, at 15:37 EDT , Service support ,
--- NOTE | 2018-11-06 14:24 | EKG12_ITS ---
Test Reason : CP Blood Pressure : / mmHG Vent. Rate : 090 BPM Atrial Rate : 090 BPM P-R Int : 128 ms QRS Dur : 088 ms QT Int : 386 ms P-R-T Axes : 062 086 251 degrees QTc Int : 472 ms Normal sinus rhythm Nonspecific ST and T wave abnormality Prolonged QT Abnormal ECG Confirmed by DIVINA BEASLEY, SUSI ([id number]), telegraph editor SHANIA SOLITARIO ([id number] on 11/08/2018 9:16:43 AM Referred By: CAITLIN Confirmed By:SUSI MURCIA MD
[2018-11-06 14:57] LABS: Absolute Lymphocyte Count 0.88 X10^3/ul (0.83-4.51); Absolute Neutrophil Count 4.3 X10^3/uL (2.0-7.7); Basophil# 0.01 X10^3/uL; Basophil% 0.2 % (0-1); Eosinophil# 0.37 X10^3/uL; Eosinophils% 6.4 % (0-5); Hematocrit 28.8 % (37-47); Hemoglobin 9.1 g/dl (12.0-15.0); Lymphocyte # 0.88 X10^3/ul (4.0); Lymphocyte % 15.2 % (19-41); Mean Corp Hgb Conc 31.6 g/gl (32-36); Mean Corpuscular Hgb 32.2 pg (27.0-32.0); Mean Corpuscular Volume 101.8 fL (81-99); Mean Platelet Vol. 8.6 fl (6.2-12.0); Monocyte# 0.18 X10^3/uL; Monocyte% 3.1 % (0-10); Neutrophil # 4.32 X10^3/uL (2.7-7.7); Neutrophil % 74.8 % (47-70); Platelet Count 121 K/mm3 (150-450); RBC Distribution Width CV 18.7 % (11.6-14.6); RBC Distribution Width SD 68.6 fl (35.1-43.9); Red Blood Count 2.83 M/mm3 (4.2-5.4); White Blood Count 5.8 K/mm3 (4.4-11.0)
[2018-11-06 14:58] LABS: Differential Indicated SCAN CRITERIA MET; POSITIVE COUNT NO; POSITIVE DIFFERENTIAL NO; POSITIVE MORPHOLOGY YES
[2018-11-06] MEDS: Ondansetron 4 MG/2 ML Vial IV (15:07)
[2018-11-06] MEDS: 0.9% Normal Saline 1,000 ML 25 ML IV (15:07)
[2018-11-06 15:11] LABS: Anion Gap 8 (5-15); BUN 43 mg/dL (7-18); BUN/Creat Ratio 7.6 RATIO (10-20); Chloride 96 mmol/L (98-107); Creatinine, Serum 5.65 mg/dL (0.55-1.02); EST Glomerular Filtration Rate 9 mL/min (>60); Est Glom Filt Rate - Afr Amer 11 mL/min (>60); Estimated Creatinine Clearance 11.89 ml/min; Glucose 248 mg/dL (74-106); Lipase 213 U/L (73-393); Sodium Level 135 mmol/L (136-145)
--- NOTE | 2018-11-06 15:35 | ED.VISSUMM ---
- ER Visit Summary Date of Service: 11/06/18 Chief Complaint: [Chest pain History of Present Illness: The patient is a 42 F presents the emergency room with complaint of chest pain that started about an hour ago. Patient describes [heaviness and tightness in her chest. Patient had gotten up from dialysis to go empty her colostomy bag when she started experiencing pressure in her chest and she ended up having emesis x4. Patient complains of feeling short of breath with it. Patient denies recent travel or surgery. Patient also states that she is been having some vomiting since last evening. He is having normal output through her colostomy.] Patient has history of coronary artery disease with cardiac stent put in about a year ago. Physical Examination: [HEENT-PERRLA, EOMI. Cranial nerves II through XII grossly intact. TMs clear. Mucous membranes moist. No adenopathy. Cardiovascular-regular rate and rhythm without murmur or ectopy Lungs-good aeration bilaterally. Few rales in the bases bilaterally right greater than left. No accessory muscle use or retractions. Abdomen-normoactive bowel sounds, soft, nontender, no rebound or rigidity, no peritoneal signs. Extremities-intact ?4, normal range of motion, normal pulses, atraumatic. +1 edema both lower extremities.] Test Results: [EKG obtained on arrival showed a sinus rhythm with a ventricular rate of [address] changes noted. When compared with prior EKG from November 06, 2018 no new changes noted. CBC with differential showed a white count 5.8, hemoglobin 9.1, hematocrit 29, platelets 121. Chemistries unremarkable. BUN was 43 and creatinine 5.65. Lipase was normal at 213. Troponin was 0.051. Chest x-ray showed mild pulmonary congestion with a right-sided effusion.] Emergency Department Course and Treatment: [Patient received sublingual nitro. Patient's pain mostly resolved. Patient had taken Plavix today therefore no aspirin was given.] Treatment Plan: Admit for further workup and evaluation of her chest pain[] Disposition: [Admit chest ] Impression: [Chest pain-rule out acute coronary syndrome] Chronic kidney disease Anemia This note was generated with [employer] software. It may contain incorrect words, spelling, and punctuation that were not noted in review of the chart prior to signing ED Disposition - Plan for ED Patient: Referrals: Christopher Foy MD [Primary Care Provider] -
--- NOTE | 2018-11-06 15:40 | ED.DCSUM_ITS ---
- ER Visit Summary Date of Service: 11/06/18 Chief Complaint: [Chest pain History of Present Illness: The patient is a 42 F presents the emergency room with complaint of chest pain that started about an hour ago. Patient describes [heaviness and tightness in her chest. Patient had gotten up from dialysis to go empty her colostomy bag when she started experiencing pressure in her chest and she ended up having emesis x4. Patient complains of feeling short of breath with it. Patient denies recent travel or surgery. Patient also states that she is been having some vomiting since last evening. He is having normal output through her colostomy.] Patient has history of coronary artery disease with c ardiac stent put in about a year ago. Physical Examination: [HEENT-PERRLA, EOMI. Cranial nerves II through XII grossly intact. TMs clear. Mucous membranes moist. No adenopathy. Cardiovascular-regular rate and rhythm without murmur or ectopy Lungs-good aeration bilaterally. Few rales in the bases bilaterally right greater than left. No accessory muscle use or retractions. Abdomen-normoactive bowel sounds, soft, nontender, no rebound or rigidity, no peritoneal signs. Extremities-intact ?4, normal range of motion, normal pulses, atraumatic. +1 edema both lower extremities.] Test Results: [EKG obtained on arrival showed a sinus rhythm with a ventricular rate of [address] changes noted. When compared with prior EKG from November 06, 2018 no new changes noted. CBC with differential showed a white count 5.8, hemoglobin 9.1, hematocrit 29, platelets 121. Chemistries unremarkable. BUN was 43 and creatinine 5.65. Lipase was normal at 213. Troponin was 0.051. Chest x-ray showed mild pulmonary congestion with a right- sided effusion.] Emergency Department Course and Treatment: [Patient received sublingual nitro. Patient's pain mostly resolved. Patient had taken Plavix today therefore no aspirin was given.] Treatment Plan: Admit for further workup and evaluation of her chest pain[] Disposition: [Admit chest ] Impression: [Chest pain-rule out acute coronary syndrome] Chronic kidney disease Anemia This note was generated with [employer] software. It may contain incorrect words, spelling, and punctuation that were not noted in review of the chart prior to signing ED Disposition - Plan for ED Patient: Referrals: Christopher Foy MD [Primary Care Provider] -
--- NOTE | 2018-11-06 15:50 | HP.PCM_ITS ---
Problem List (1) Stented coronary artery Status: Chronic Comment: FFR of LAD 0.82; VIKY of mid LAD with 2.5 X 24 mm Promus Synergy, OM <50% stenosis per Dr. Magdaleno @ [facility] (2) ESRD (end stage renal disease) on dialysis Status: Chronic (3) Depression Status: Chronic Qualifiers: Depression Type: unspecified (4) Anxiety Status: Chronic (5) HTN (hypertension) Status: Chronic Qualifiers: Hypertension type: essential hypertension History of Present Illness Date of Admission: 11/06/18 Chief Complaint: Syncope, chest pain The patient is a 42 year old F past medical history of ESRD on hemodialysis, type II DM, hypertension, CAD s/p VIKY to mid LAD, medical management of the obtuse marginal, recently had a stress test in September 2018 which was normal. Patient had her dialysis today, she got up to go use the bathroom so she could empty her colostomy bag, she felt nauseous and vomited about 3 times, felt lightheaded passed out. When she woke up she was on the floor, she admits to hitting her head and complained of headache and neck pain. She also complained of chest pain that was midsternal, non-radiating. Patient reportedly did not finish her dialysis, completed an hour and half. Vitals on admission showed blood pressure 123/73, temperature of 98.2F, heart rate 79, respiratory rate 18, SPO2 was 94% on room air. Admitting labs showed WBC count of 5.8, hemoglobin 9.1, platelet count of 121, dropped from 144 in her last admission. BMP shows sodium 135, potassium 4.0, chloride 96, bicarbonate 31, BUN 43, creatinine 5.65, glucose 248, troponin was 0.051 and 0.045. Lipase was 213. EKG shows some lateral T wave inversions in the second EKG. admitting chest x-ray shows CHF, small right pleural effusion, mild cardiomegaly. Past Medical History Past Medical History (Chronic Problems): Chronic Problems (Last Reviewed 10/14/18 @ 11:43 by Roberto Roman DO) CAD (coronary artery disease) (Chronic) Stented coronary artery (Chronic 02/26/18) FFR of LAD 0.82; VIKY of mid LAD with 2.5 X 24 mm Promus Synergy, OM <50% stenosis per Dr. Magdaleno @ [facility] Atherosclerotic heart disease of kaibab coronary artery without angina pectoris (Chronic) S/P PTCA/VIKY to mid LAD in February 2018 OM #1 noted to be 50%; ESRD (end stage renal disease) on dialysis (Chronic) Decubitus ulcer, stage III (Chronic) Anemia, chronic disease (Chronic) Pilonidal cyst with abscess (Chronic) GABRIEL (obstructive sleep apnea) (Chronic) Depression (Chronic) Anxiety (Chronic) HTN (hypertension) (Chronic) Nonischemic cardiomyopathy (Chronic) EF 45% per echo 07/01/2018 S/P repair of PDA (patent ductus arteriosus) (Chronic) At young age Diabetes mellitus type 1 (Chronic) Hyperlipidemia (Chronic) Obesity (BMI 30.0-34.9) (Chronic) Gastroparesis (Chronic) Medical History: Medical History (Last Reviewed 10/14/18 @ 11:43 by Roberto Roman DO) Atherosclerotic heart disease of kaibab coronary artery without angina pectoris (Chronic) I25.10 S/P PTCA/VIKY to mid LAD in February 2018 OM #1 noted to be 50%; ESRD (end stage renal disease) on dialysis (Chronic) N18.6, Z99.2 Decubitus ulcer, stage III (Chronic) L89.93 Anemia, chronic disease (Chronic) D63.8 Pilonidal cyst with abscess (Chronic) L05.01 GABRIEL (obstructive sleep apnea) (Chronic) G47.33 HTN (hypertension) (Chronic) I10 Nonischemic cardiomyopathy (Chronic) I42.8 EF 45% per echo 07/01/2018 Diabetes mellitus type 1 (Chronic) Hyperlipidemia (Chronic) E78.5 Obesity (BMI 30.0-34.9) (Chronic) E66.9 Gastroparesis (Chronic) K31.84 Allergies latex Allergy (Verified 10/25/18 14:40) Rash prochlorperazine [From Compazine] Allergy (Verified 10/25/18 14:40) Unknown levofloxacin [From Levaquin] Adverse Reaction (Verified 10/25/18 14:40) PT CAN'T REMEMBER PT CAN'T REMEMBER metoclopramide HCl [From Reglan] Adverse Reaction (Verified 10/25/18 14:40) Nausea NSAIDS (Non-Steroidal Anti-Inflamma Adverse Reaction (Verified 10/25/18 14:40) kidney function oxycodone HCl [From Percocet] Adverse Reaction (Verified 10/25/18 14:40) HALLUCINATIONS Home Medications: Ambulatory Orders Medication Instructions Recorded Aspirin [Aspirin, Baby] 81 mg PO DAILY@0800 01/26/16 Calcium Acetate [Phoslo Gel Cap] 1,334 mg PO TIDCM 01/26/16 Ergocalciferol [Vitamin D] 50,000 unit PO MO 01/26/16 Insulin Aspart [Novolog Flexpen] 10 units SC TIDCM 01/26/16 Insulin Glargine,Hum.rec.anlog 5 unit SQ QHS 01/09/17 [Lantus] proMETHazine tablet [Phenergan 25 mg PO Q6H PRN PRN #10 tab 03/06/17 tablet] Lisinopril 20 mg PO DAILY 03/29/17 Sodium Bicarbonate 650 mg PO 4X/DAY 03/29/17 Atorvastatin Calcium [Lipitor] 20 mg PO QHS 05/26/18 Carvedilol [Coreg] 25 mg PO BID 05/26/18 Loperamide HCl [Imodium A-D] 2 mg PO TID PRN 05/26/18 Pantoprazole Sodium [Protonix] 20 mg PO BID 05/26/18 Clopidogrel Bisulfate [Plavix] 75 mg PO DAILY 07/01/18 ALPRAZolam [Xanax] 0.5 mg PO TUTHSA PRN 08/09/18 B Complex W-C No.20/Folic Acid 1 mg PO DAILY 08/09/18 [Nephrocaps Softgel] Fluoxetine HCl 40 mg PO DAILY 08/09/18 Isosorbide Mononitrate [Imdur] 60 mg PO DAILY 08/09/18 Lidocaine/Prilocaine HCl [Emla 1 applicatio TOPICAL X1 10/01/18 Cream W/Tegaderm] Nystatin Powder [Mycostatin Powder] 1 applic TOPICAL BID 10/14/18 Cyclobenzaprine [Flexeril] 10 mg PO TID PRN #20 tab 10/25/18 hydrOXYzine tablet [Atarax tablet] 10 mg PO TUTHSA 11/06/18 Surgical History: Surgical History (Last Reviewed 10/14/18 @ 11:43 by Roberto Roman DO) Stented coronary artery (Chronic) Onset Date: 02/26/18 Z95.5 FFR of LAD 0.82; VIKY of mid LAD with 2.5 X 24 mm Promus Synergy, OM <50% stenosis per Dr. Magdaleno @ [facility] S/P repair of PDA (patent ductus arteriosus) (Chronic) Z98.890, Z87.74 At young age Surgical History: appendectomy, hysterectomy - and BSO, - - c-sections, L breast I+D for abscess, fistula placement LUE, L ankle surgery, appendectomy, PDA repair. Excision pilonidal cyst ulcer about 4 years ago. Colostomy placed due to rectal abscess/wound, patent ductus repair, drug-eluting stent placement left anterior descending coronary artery February 2018. 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 Denies: Chills, Fever, Weight Change Eyes: Denies: Blurred vision, Cataracts, Conjunctivae Inflammation HEENT: Denies: Difficulty Swallowing, Head Aches, Hearing Changes, Sinus Congestion, Sinus Drainage Cardiovascular: Reports: Syncope. Denies: Chest Pain, Claudication, Chest Pressure, Orthopnea, Palpitations, Paroxysmal Noc. Dyspnea Respiratory: Denies: Cough, Hemoptysis, Pleuritic Pain, Shortness of breath at rest, Shortness of breath upon exertion, Sputum production Gastrointestinal: Denies: Abdominal Pain, Constipation, Hematemesis, Nausea, Vomiting Genitourinary: Denies: Dysuria, Frequency, Incontinence Musculoskeletal: Denies: Joint Pain, Joint Tenderness Skin: Denies: Rash, Wounds Neurological: Denies: Numbness, Tingling, Focal weakness Psychiatric: Denies: Anxiety, Depression, Homicidal Ideations, Suicidal Ideations Hematologic/ Lymphatic: Denies: Easy Bruising, Easy Bleeding VTE Information - Inpt Only VTE Present on Admission: No VTE Pharm Prophylaxis ordered?: Yes - Physical Exam General: Alert, Oriented x3, Cooperative, No apparent distress, - - on 3L of oxygen HEENT: Atraumatic, PERRLA, EOMI, Normocephalic Oral: Moist Mucosa Neck: Supple, No JVD, Negative Carotid Bruits Lungs: Clear to auscultation, Normal air movement Cardiovascular: Regular rate, Regular Rhythm, Normal S1, Normal S2, No murmurs Abdomen: Bowel Sounds Present, Soft, Non Tender, Non-Distended, No Hepato- splenomegaly, Obese, - - Colostomy bag with loose stool, colostomy is pink Extremities: No edema, Capillary Refill Less than 3 Seconds Skin: No rashes, No breakdown Musculoskeletal: No Tenderness to Palpation of Joints or Extremities Lymphatic: No Cervical, Supraclavicular, or Inguinal Adenopathy Neurological: Cranial nerves II-XII grossly intact, Neuro grossly intact Psych/Mental Status: Normal Affect, Appropriate Vital Signs Temp Pulse Resp BP Pulse Ox 98.1 F 85 20 H 128/59 H 93 11/06/18 13:58 11/06/18 15:16 11/06/18 15:16 11/06/18 15:16 11/06/18 15:16 Oxygen Flow Rate (L/min) 2 Oxygen Delivery Method Nasal Cannula Weight: 93 kg Body Mass Index (BMI) 33.0 Finger Stick Blood Glucose 118 Laboratory Tests Past 24 Hrs 11/06/18 11/06/18 14:13 14:13 WBC 5.8 RBC 2.83 L Hgb 9.1 L Hct 28.8 L MCV 101.8 H MCH 32.2 H MCHC 31.6 L RDW 18.7 H RDW Differential 68.6 H Plt Count 121 L MPV 8.6 Immature Gran % (Auto) 0.300 Neut % (Auto) 74.8 H Lymph % (Auto) 15.2 L Noble % (Auto) 3.1 Eos % (Auto) 6.4 H Baso % (Auto) 0.2 Absolute Neuts (auto) 4.3 Absolute Lymphs (auto) 0.88 Total Counted Not Reportable Differential Comment COMMENT Sodium 135 L Potassium 4.0 Chloride 96 L Carbon Dioxide 31.0 Anion Gap 8 BUN 43 H Creatinine 5.65 H Estim Creat Clear Calc 11.89 Est GFR (MDRD) Af Amer 11 L Est GFR (MDRD) Non-Af 9 L BUN/Creatinine Ratio 7.6 L Glucose 248 H Calcium 8.0 L Troponin I 0.051 H Lipase 213 Assessment/Plan All Active Problems (Last Reviewed 10/14/18 @ 11:43 by Roberto Roman DO) COPD exacerbation (Acute) Hypoxia (Acute) Respiratory distress (Acute) Bronchitis (Acute) Dysmenorrhea (Resolved) Hx of necrotizing fascIItis (Resolved) Iron deficiency anemia due to chronic blood loss (Resolved) Systolic congestive heart failure (Resolved) 42-year-old female with past medical history of ESRD on hemodialysis, CAD status post stent, type II DM who comes in with complaints of nausea, vomiting, chest pain and syncopal episode. 1. Syncope, unclear etiology for now, history of CAD status post stent, slight elevation in troponin Plan: Admit to PCU, check orthostatic vitals, gentle IV fluids, trend troponins 2. Chest pain, atypical, in a patient with history of CAD status post stent, troponin minimally elevated, recent stress test was negative, cardiology consulted, will follow up on recommendations, will trend troponins 3. Nausea vomiting, secondary to gastroenteritis, likely viral, will continue to monitor, continue on PPI 4. Hypertension, controlled, continue on home carvedilol, lisinopril 5. Type II DM, continue home Lantus with pre-meal insulin 6. CAD status post stent, continue on aspirin, statin, beta-lewis, Plavix, Sorbide 7. ESRD on hemodialysis, follows with [facility], patient may need dialysis if she is here beyond tomorrow [facility] may need to be consulted then. 8. Anxiety/depression on Prozac, on Xanax as needed 9. DVT PPx- Heparin SC Code Visit OBSV E&M: [id number] Initial observation care L3
--- NOTE | 2018-11-06 16:07 | NURSING ---
PCU PAINTSIL CP
[2018-11-06] MEDS: Acetaminophen 325 MG Tablet 650 MG PO ×2 (16:18→23:32)
--- NOTE | 2018-11-06 17:00 | EKG12_ITS ---
Test Reason : CP ADMISSION EKG Blood Pressure : / mmHG Vent. Rate : 093 BPM Atrial Rate : 093 BPM P-R Int : 130 ms QRS Dur : 090 ms QT Int : 382 ms P-R-T Axes : 061 067 244 degrees QTc Int : 474 ms Normal sinus rhythm Left ventricular hypertrophy with repolarization abnormality Abnormal ECG When compared with ECG of 06-NOV-2018 14:00, MANUAL COMPARISON REQUIRED, DATA IS UNCONFIRMED Confirmed by DIVINA BEASLEY, SUSI ([id number]), managing editor SHANIA SOLITARIO ([id number] on 11/08/2018 9:46:44 AM Referred By: MISTY Confirmed By:SUSI MURCIA MD
[2018-11-06] MEDS: Sodium Bicarbonate 650 MG Tablet PO ×2 (18:51→21:46)
[2018-11-06] MEDS: Calcium Acetate 667 MG Capsule 1334 MG PO (18:51)
[2018-11-06] MEDS: 0.9% Normal Saline 1,000 ML 100 ML IV (19:10)
--- NOTE | 2018-11-06 21:05 | PCM.CONS.C ---
Problem List (1) Chest pain Status: Acute (2) CAD (coronary artery disease) Status: Chronic Qualifiers: (3) Stented coronary artery Status: Chronic Comment: FFR of LAD 0.82; VIKY of mid LAD with 2.5 X 24 mm Promus Synergy, OM <50% stenosis per Dr. Magdaleno @ [facility] (4) S/P repair of PDA (patent ductus arteriosus) Status: Chronic Comment: At young age (5) Hyperlipidemia Status: Chronic Qualifiers: (6) HTN (hypertension) Status: Chronic Qualifiers: Hypertension type: essential hypertension (7) Diabetes mellitus type 1 Status: Chronic Qualifiers: (8) ESRD (end stage renal disease) on dialysis Status: Chronic Reason for Consult Date of Consultation: 11/06/18 History of Present Illness: The patient is a 42 year old white female who was referred for evaluation of chest discomfort superimposed upon a history of underlying CAD, PCI, PDA closure, hyperlipidemia, hypertension, diabetes mellitus, end-stage renal disease on chronic hemodialysis. She notes that at dialysis this day she was up and about to empty her colostomy bag. She states she did not feel well. She had nausea and emesis. She felt like she may lose consciousness but she does not believe she lost consciousness. She notes upon returning to her dialysis chair she had chest discomfort described as chest pressure. She states she has had this before for which she had been treated with nitroglycerin sublingual. Based upon her symptoms the EMS was summoned and she was brought to the hospital for further evaluation. She notes that she received aspirin 81 mg x4 by the EMS crew. In the emergency department she received nitroglycerin sublingual. She felt better. She was placed in the PCU. She notes overall she feels better at this time. She has denied any orthopnea or PND. She has not had lower extremity edema. She does not believe she has lost consciousness. She states she does have issues with her underlying pulmonary disease process and does wear oxygen per nasal cannula. She states she had a CPAP device in the past however it is missing. She states based on insurance reasons they will not replace her CPAP device for approximately 2 years. Thus she states she has been using oxygen in the interim as an alternative. Her initial troponin I level was indeterminate at 0.51. Her ECG demonstrated normal sinus rhythm with nonspecific ST and T wave changes. She has undergone previous noninvasive and invasive evaluation. She had a transthoracic echocardiogram on 07/03/2018. At that time the left ventricle was considered dilated with global dysfunction with an LVEF of 45% with findings of mild MR and trivial TR and trivial VT and an estimated RV systolic pressure of 22 mmHg. More recently on 10/02/2018 she underwent evaluation with a pharmacologic stress nuclear imaging study. Per the report there was evidence of previous extensive anterior and apical and inferior apical infarct with no ischemia reported. She has undergone previous cardiac catheterization/PCI on 02/26/[address] Magdaleno. At that point in time per the report the left ventricle had global hypokinesis with an LVEF of 55%, the left main coronary was normal, the LAD had proximal mild calcification and mid 75% stenosis, the LCx had mild luminal irregularities, the OM had mild to moderate luminal irregularities, the RCA had mild calcification and mild luminal irregularities. She underwent FFR of the LAD. This led to PTCA/VIKY of the LAD with a Promus Synergy 2.5 x 24 mm stent. [] Past Medical History Allergies/Adverse Reactions: Allergies latex Allergy (Verified 10/25/18 14:40) Rash prochlorperazine [From Compazine] Allergy (Verified 10/25/18 14:40) Unknown levofloxacin [From Levaquin] Adverse Reaction (Verified 10/25/18 14:40) PT CAN'T REMEMBER PT CAN'T REMEMBER metoclopramide HCl [From Reglan] Adverse Reaction (Verified 10/25/18 14:40) Nausea NSAIDS (Non-Steroidal Anti-Inflamma Adverse Reaction (Verified 10/25/18 14:40) kidney function oxycodone HCl [From Percocet] Adverse Reaction (Verified 10/25/18 14:40) HALLUCINATIONS Home Medications: Ambulatory Orders Medication Instructions Recorded Aspirin [Aspirin, Baby] 81 mg PO DAILY@0800 01/26/16 Calcium Acetate [Phoslo Gel Cap] 1,334 mg PO TIDCM 01/26/16 Ergocalciferol [Vitamin D] 50,000 unit PO MO 01/26/16 Insulin Aspart [Novolog Flexpen] 10 units SC TIDCM 01/26/16 Insulin Glargine,Hum.rec.anlog 5 unit SQ QHS 01/09/17 [Lantus] proMETHazine tablet [Phenergan 25 mg PO Q6H PRN PRN #10 tab 03/06/17 tablet] Lisinopril 20 mg PO DAILY 03/29/17 Sodium Bicarbonate 650 mg PO 4X/DAY 03/29/17 Atorvastatin Calcium [Lipitor] 20 mg PO QHS 05/26/18 Carvedilol [Coreg] 25 mg PO BID 05/26/18 Loperamide HCl [Imodium A-D] 2 mg PO TID PRN 05/26/18 Pantoprazole Sodium [Protonix] 20 mg PO BID 05/26/18 Clopidogrel Bisulfate [Plavix] 75 mg PO DAILY 07/01/18 ALPRAZolam [Xanax] 0.5 mg PO TUTHSA PRN 08/09/18 B Complex W-C No.20/Folic Acid 1 mg PO DAILY 08/09/18 [Nephrocaps Softgel] Fluoxetine HCl 40 mg PO DAILY 08/09/18 Isosorbide Mononitrate [Imdur] 60 mg PO DAILY 08/09/18 Lidocaine/Prilocaine HCl [Emla 1 applicatio TOPICAL X1 10/01/18 Cream W/Tegaderm] Nystatin Powder [Mycostatin Powder] 1 applic TOPICAL BID 10/14/18 Cyclobenzaprine [Flexeril] 10 mg PO TID PRN #20 tab 10/25/18 hydrOXYzine tablet [Atarax tablet] 10 mg PO TUTHSA 11/06/18 Past Medical History (Chronic Problems): Chronic Problems (Last Reviewed 10/14/18 @ 11:43 by Roberto Roman DO) CAD (coronary artery disease) (Chronic) Stented coronary artery (Chronic 02/26/18) FFR of LAD 0.82; VIKY of mid LAD with 2.5 X 24 mm Promus Synergy, OM <50% stenosis per Dr. Magdaleno @ [facility] Atherosclerotic heart disease of [place] coronary artery without angina pectoris (Chronic) S/P PTCA/VIKY to mid LAD in February 2018 OM #1 noted to be 50%; ESRD (end stage renal disease) on dialysis (Chronic) Decubitus ulcer, stage III (Chronic) Anemia, chronic disease (Chronic) Pilonidal cyst with abscess (Chronic) GABRIEL (obstructive sleep apnea) (Chronic) Depression (Chronic) Anxiety (Chronic) HTN (hypertension) (Chronic) Nonischemic cardiomyopathy (Chronic) EF 45% per echo 07/01/2018 S/P repair of PDA (patent ductus arteriosus) (Chronic) At young age Diabetes mellitus type 1 (Chronic) Hyperlipidemia (Chronic) Obesity (BMI 30.0-34.9) (Chronic) Gastroparesis (Chronic) Surgical History: angioplasty, appendectomy, hysterectomy - and BSO, - - c-sections, L breast I+D for abscess, fistula placement LUE, L ankle surgery, appendectomy, PDA repair. Excision pilonidal cyst ulcer about 4 years ago. Colostomy placed due to rectal abscess/wound, patent ductus repair, drug-eluting stent placement left anterior descending coronary artery February 2018. 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 Denies: Orthopnea, PND, Peripheral Edema, Palpitations, Lightheadedness, Dizziness, Syncope Respiratory: Reports: Shortness of Breath. Denies: Cough, Sputum Production, Hemoptysis Gastrointestinal: Reports: Nausea, Emesis. Denies: Hematemesis, Hematochezia, Melena Genitourinary: Denies: Dysuria, Hematuria Skin: Denies: Rash Subjectve: This is a 42-year-old female who appears to be resting comfortably at the moment in no acute distress. Objective: Vital Signs Temp Pulse Resp BP Pulse Ox 97.5 F L 88 20 H 134/50 H 95 11/06/18 20:10 11/06/18 20:10 11/06/18 20:10 11/06/18 20:10 11/06/18 20:18 Oxygen Flow Rate (L/min) 3 Oxygen Delivery Method Nasal Cannula Weight: 205 lb 0.478 oz Body Mass Index (BMI) 33.0 Finger Stick Blood Glucose 118 Orthostatic Vital Signs Start: 11/06/18 20:07 Freq: q24h Status: Active Protocol: Activity Type Activity Date Activity User E-Sign Co-Sign Detail Recorded Client Recorded Date Recorded By Document 04/16/19 20:10 AR [id number] 11/06/18 20:16 AR 11/06/18 20:10 Orthostatic Vitals Standing -Blood Pressure (90/60-120/80) 145/55 H -Extremity Use Right Arm -Pulse Rate (60-100) 87 Sitting -Blood Pressure (90/60-120/80) 152/53 H -Extremity Use Right Arm -Pulse Rate (60-100) 89 Lying -Blood Pressure (90/60-120/80) 134/50 H -Extremity Use Right Arm -Pulse Rate (60-100) 88 General: Awake, Alert, Oriented x 3, Cooperative, No Acute Distress HEENT: Atraumatic, Normocephalic, PERRL, EOMI, Sclera Non Icteric Oral: Moist Mucosa Neck: Supple, Good ROM, No JVD Lungs: Clear to auscultation Cardiovascular: Regular Rhythm, Normal S1, Normal S2 Vascular: No Carotid Bruits Abdomen: Bowel Sounds Present, Soft, Non Tender Extremities: No Cyanosis, No Clubbing, No edema Neurological: No Focal Motor or Sensory Deficit Psych/Mental Status: Appropriate 11/06/18 14:13: WBC 5.8, RBC 2.83 L, Hgb 9.1 L, Hct 28.8 L, MCV 101.8 H, MCH 32.2 H, MCHC 31.6 L, RDW 18.7 H, RDW Differential 68.6 H, Plt Count 121 L, MPV 8.6, Immature Gran % (Auto) 0.300, Neut % (Auto) 74.8 H, Lymph % (Auto) 15.2 L, Foster % (Auto) 3.1, Eos % (Auto) 6.4 H, Baso % (Auto) 0.2, Absolute Neuts (auto) 4.3, Total Counted Not Reportable 11/06/18 14:13: Sodium 135 L, Potassium 4.0, Chloride 96 L, Carbon Dioxide 31.0, Anion Gap 8, BUN 43 H, Creatinine 5.65 H, Est GFR (MDRD) Af Amer 11 L, Est GFR (MDRD) Non-Af 9 L, BUN/Creatinine Ratio 7.6 L, Glucose 248 H, Calcium 8.0 L, Troponin I 0.051 H 11/06/18 17:49: Troponin I 0.045 Rhythm: Sinus rhythm EKG: As noted above ECHO: As noted above Stress Test: As noted above Cardiac Cath: As noted above PCI: As noted above CXR: Preliminary evaluation: Small right pleural effusion: Please see official report Assessment/Plan 1. Chest pain The patient had recurrent chest pain. She described it as chest pressure. Apparently improved status post nitroglycerin sublingual. At the present time she is being monitored. Her troponin I level has subsequently decreased. Her ECG is as noted above. She is undergone noninvasive and invasive studies in the past including recently as previously described. It is unclear at the moment as to whether her discomfort is related to her underlying cardiovascular status or a noncardiac condition. However, she may need to be considered, unless there is another etiology to explain it, for reevaluation in the cardiac catheterization laboratory despite her recent pharmacologic stress nuclear imaging study suggesting no ongoing myocardial ischemia. In the meantime she will continue medical management. 2. CAD status post PCI Again she will continue to be monitored. She will continue medical therapy. She may need reevaluation in the cardiac catheterization laboratory. This was discussed with her. She was agreeable to this approach if need be. 3. Status post PDA repair She has a history of a remote PDA repair. There is been no obvious objective findings or issues raised with respect to this concern. 4. Hyperlipidemia She will continue medical therapy. 5. Hypertension Her blood pressures will be followed. Her medications can be adjusted as needed. 6. Diabetes mellitus She will continue under the care of internal medicine. 7. End-stage renal disease on chronic hemodialysis She will continue under the care of nephrology. Of note, it is unclear whether they are all of her symptoms are cardiovascular related. There is a concern based upon her gastrointestinal symptoms as to whether or not she may have experienced some form of vasovagal mediated event. However based upon her underlying cardiovascular history including her concerns of chest pressure and reported response after medical therapy with aspirin and nitrates there would be a concern as to whether or not her underlying CAD process is playing a role. Thus, as noted above, despite her recent pharmacologic stress test findings, depending upon her clinical course and/or any other findings, she may need to be reevaluated in the cardiac catheterization laboratory. Comment: The above was discussed with patient and Dr. Frank. This note was generated with [employer] software. It may contain incorrect words, spelling, and punctuation that were not noted in checking the note before signing.
--- NOTE | 2018-11-06 21:10 | CON.PCM_ITS ---
Problem List (1) Chest pain Status: Acute (2) CAD (coronary artery disease) Status: Chronic Qualifiers: (3) Stented coronary artery Status: Chronic Comment: FFR of LAD 0.82; VIKY of mid LAD with 2.5 X 24 mm P romus Synergy, OM <50% stenosis per Dr. Magdaleno @ [facility] (4) S/P repair of PDA (patent ductus arteriosus) Status: Chronic Comment: At young age (5) Hyperlipidemia Status: Chronic Qualifiers: (6) HTN (hypertension) Status: Chronic Qualifiers: Hypertension type: essential hypertension (7) Diabetes mellitus type 1 Status: Chronic Qualifiers: (8) ESRD (end stage renal disease) on dialysis Status: Chronic Reason for Consult Date of Consultation: 11/06/18 History of Present Illness: The patient is a 42 year old white female who was referred for evaluation of chest discomfort superimposed upon a history of underlying CAD, PCI, PDA closure, hyperlipidemia, hypertension, diabetes mellitus, end-stage renal disease on chronic hemodialysis. She notes that at dialysis this day she was up and about to empty her colostomy bag. She states she did not feel well. She had nausea and emesis. She felt like she may lose consciousness but she does not believe she lost consciousness. She notes upon returning to her dialysis chair she had chest discomfort described as chest pressure. She states she has had this before for which she had been treated with nitroglycerin sublingual. Based upon her symptoms the EMS was summoned and she was brought to the hospital for further evaluation. She notes that she received aspirin 81 mg x4 by the EMS crew. In the emergency department she received nitroglycerin sublingual. She felt better. She was placed in the PCU. She notes overall she feels better at this time. She has denied any orthopnea or PND. She has not had lower extremity edema. She does not believe she has lost consciousness. She states she does have issues with her underlying pulmonary disease process and does wear oxygen per nasal cannula. She states she had a CPAP device in the past however it is missing. She states based on insurance reasons they will not replace her CPAP device for approximately 2 years. Thus she states she has been using oxygen in the interim as an alternative. Her initial troponin I level was indeterminate at 0.51. Her ECG demonstrated normal sinus rhythm with nonspecific ST and T wave changes. She has undergone previous noninvasive and invasive evaluation. She had a transthoracic echocardiogram on 07/03/2018. At that time the left ventricle was considered dilated with global dysfunction with an LVEF of 45% with findings of mild MR and trivial TR and trivial RI and an estimated RV systolic pressure of 22 mmHg. More recently on 10/02/2018 she underwent evaluation with a pharmacologic stress nuclear imaging study. Per the report there was evidence of previous extensive anterior and apical and inferior apical infarct with no ischemia reported. She has undergone previous cardiac catheterization/PCI on 02/26/[address] Magdaleno. At that point in time per the report the left ventricle had global hypokinesis with an LVEF of 55%, the left main coronary was normal, the LAD had proximal mild calcification and mid 75% stenosis, the LCx had mild luminal irregularities, the OM had mild to moderate luminal irregularities, the RCA had mild calcification and mild luminal irregularities. She underwent FFR of the LAD. This led to PTCA/VIKY of the LAD with a Promus Synergy 2.5 x 24 mm stent. [] Past Medical History Allergies/Adverse Reactions: Allergies latex Allergy (Verified 10/25/18 14:40) Rash prochlorperazine [From Compazine] Allergy (Verified 10/25/18 14:40) Unknown levofloxacin [From Levaquin] Adverse Reaction (Verified 10/25/18 14:40) PT CAN'T REMEMBER PT CAN'T REMEMBER metoclopramide HCl [From Reglan] Adverse Reaction (Verified 10/25/18 14:40) Nausea NSAIDS (Non-Steroidal Anti-Inflamma Adverse Reaction (Verified 10/25/18 14:40) kidney function oxycodone HCl [From Percocet] Adverse Reaction (Verified 10/25/18 14:40) HALLUCINATIONS Home Medications: Ambulatory Orders Medication Instructions Recorded Aspirin [Aspirin, Baby] 81 mg PO DAILY@0800 01/26/16 Calcium Acetate [Phoslo Gel Cap] 1,334 mg PO TIDCM 01/26/16 Ergocalciferol [Vitamin D] 50,000 unit PO MO 01/26/16 Insulin Aspart [Novolog Flexpen] 10 units SC TIDCM 01/26/16 Insulin Glargine,Hum.rec.anlog 5 unit SQ QHS 01/09/17 [Lantus] proMETHazine tablet [Phenergan 25 mg PO Q6H PRN PRN #10 tab 03/06/17 tablet] Lisinopril 20 mg PO DAILY 03/29/17 Sodium Bicarbonate 650 mg PO 4X/DAY 03/29/17 Atorvastatin Calcium [Lipitor] 20 mg PO QHS 05/26/18 Carvedilol [Coreg] 25 mg PO BID 05/26/18 Loperamide HCl [Imodium A-D] 2 mg PO TID PRN 05/26/18 Pantoprazole Sodium [Protonix] 20 mg PO BID 05/26/18 Clopidogrel Bisulfate [Plavix] 75 mg PO DAILY 07/01/18 ALPRAZolam [Xanax] 0.5 mg PO TUTHSA PRN 08/09/18 B Complex W-C No.20/Folic Acid 1 mg PO DAILY 08/09/18 [Nephrocaps Softgel] Fluoxetine HCl 40 mg PO DAILY 08/09/18 Isosorbide Mononitrate [Imdur] 60 mg PO DAILY 08/09/18 Lidocaine/Prilocaine HCl [Emla 1 applicatio TOPICAL X1 10/01/18 Cream W/Tegaderm] Nystatin Powder [Mycostatin Powder] 1 applic TOPICAL BID 10/14/18 Cyclobenzaprine [Flexeril] 10 mg PO TID PRN #20 tab 10/25/18 hydrOXYzine tablet [Atarax tablet] 10 mg PO TUTHSA 11/06/18 Past Medical History (Chronic Problems): Chronic Problems (Last Reviewed 10/14/18 @ 11:43 by Roberto Roman DO) CAD (coronary artery disease) (Chronic) Stented coronary artery (Chronic 02/26/18) FFR of LAD 0.82; VIKY of mid LAD with 2.5 X 24 mm Promus Synergy, OM <50% stenosis per Dr. Magdaleno @ [facility] Atherosclerotic heart disease of [place] coronary artery without angina pectoris (Chronic) S/P PTCA/VIKY to mid LAD in February 2018 OM #1 noted to be 50%; ESRD (end stage renal disease) on dialysis (Chronic) Decubitus ulcer, stage III (Chronic) Anemia, chronic disease (Chronic) Pilonidal cyst with abscess (Chronic) GABRIEL (obstructive sleep apnea) (Chronic) Depression (Chronic) Anxiety (Chronic) HTN (hypertension) (Chronic) Nonischemic cardiomyopathy (Chronic) EF 45% per echo 07/01/2018 S/P repair of PDA (patent ductus arteriosus) (Chronic) At young age Diabetes mellitus type 1 (Chronic) Hyperlipidemia (Chronic) Obesity (BMI 30.0-34.9) (Chronic) Gastroparesis (Chronic) Surgical History: angioplasty, appendectomy, hysterectomy - and BSO, - - c- sections, L breast I+D for abscess, fistula placement LUE, L ankle surgery, appendectomy, PDA repair. Excision pilonidal cyst ulcer about 4 years ago. Colostomy placed due to rectal abscess/wound, patent ductus repair, drug-eluting stent placement left anterior descending coronary artery February 2018. Psychiatric History: Anxiety, Depression [employer]CHIT[employer] History: No pertinent NET[employer] history - *Family History Maternal History Items: Cancer, COPD, Diabetes, Hypertension, Renal Disease, Stroke Paternal History Items: Diabetes Sibling History Items: Cancer, Diabetes Lives: With Family Smoking Status: Current every day smoker Tobacco Use: Cigarettes Alcohol: None Drugs: None Review of Systems - Review of Systems General: Denies: Fever, Night Sweats, Fatigue Cardiovascular: Reports: Chest Discomfort, Shortness of Breath, Near Syncope. Denies: Orthopnea, PND, Peripheral Edema, Palpitations, Lightheadedness, Dizziness, Syncope Respiratory: Reports: Shortness of Breath. Denies: Cough, Sputum Production, Hemoptysis Gastrointestinal: Reports: Nausea, Emesis. Denies: Hematemesis, Hematochezia, Melena Genitourinary: Denies: Dysuria, Hematuria Skin: Denies: Rash Subjectve: This is a 42-year-old female who appears to be resting comfortably at the moment in no acute distress. Objective: Vital Signs Temp Pulse Resp BP Pulse Ox 97.5 F L 88 20 H 134/50 H 95 11/06/18 20:10 11/06/18 20:10 11/06/18 20:10 11/06/18 20:10 11/06/18 20:18 Oxygen Flow Rate (L/min) 3 Oxygen Delivery Method Nasal Cannula Weight: 205 lb 0.478 oz Body Mass Index (BMI) 33.0 Finger Stick Blood Glucose 118 Orthostatic Vital Signs Start: 11/06/18 20:07 Freq: q24h Status: Active Protocol: Activity Type Activity Date Activity User E-Sign Co-Sign Detail Recorded Client Recorded Date Recorded By Document 11/06/18 20:10 AR [id number] 11/06/18 20:16 AR 11/06/18 20:10 Orthostatic Vitals Standing -Blood Pressure (90/60-120/80) 145/55 H -Extremity Use Right Arm -Pulse Rate (60-100) 87 Sitting -Blood Pressure (90/60-120/80) 152/53 H -Extremity Use Right Arm -Pulse Rate (60-100) 89 Lying -Blood Pressure (90/60-120/80) 134/50 H -Extremity Use Right Arm -Pulse Rate (60-100) 88 General: Awake, Alert, Oriented x 3, Cooperative, No Acute Distress HEENT: Atraumatic, Normocephalic, PERRL, EOMI, Sclera Non Icteric Oral: Moist Mucosa Neck: Supple, Good ROM, No JVD Lungs: Clear to auscultation Cardiovascular: Regular Rhythm, Normal S1, Normal S2 Vascular: No Carotid Bruits Abdomen: Bowel Sounds Present, Soft, Non Tender Extremities: No Cyanosis, No Clubbing, No edema Neurological: No Focal Motor or Sensory Deficit Psych/Mental Status: Appropriate 11/06/18 14:13: WBC 5.8, RBC 2.83 L, Hgb 9.1 L, Hct 28.8 L, MCV 101.8 H, MCH 32.2 H, MCHC 31.6 L, RDW 18.7 H, RDW Differential 68.6 H, Plt Count 121 L, MPV 8.6, Immature Gran % (Auto) 0.300, Neut % (Auto) 74.8 H, Lymph % (Auto) 15.2 L, Brule % (Auto) 3.1, Eos % (Auto) 6.4 H, Baso % (Auto) 0.2, Absolute Neuts (auto) 4.3, Total Counted Not Reportable 11/06/18 14:13: Sodium 135 L, Potassium 4.0, Chloride 96 L, Carbon Dioxide 31.0, Anion Gap 8, BUN 43 H, Creatinine 5.65 H, Est GFR (MDRD) Af Amer 11 L, Est GFR ( MDRD) Non-Af 9 L, BUN/Creatinine Ratio 7.6 L, Glucose 248 H, Calcium 8.0 L, Troponin I 0.051 H 11/06/18 17:49: Troponin I 0.045 Rhythm: Sinus rhythm EKG: As noted above ECHO: As noted above Stress Test: As noted above Cardiac Cath: As noted above PCI: As noted above CXR: Preliminary evaluation: Small right pleural effusion: Please see official report Assessment/Plan 1. Chest pain The patient had recurrent chest pain. She described it as chest pressure. Apparently improved status post nitroglycerin sublingual. At the present time she is being monitored. Her troponin I level has subsequently decreased. Her ECG is as noted above. She is undergone noninvasive and invasive studies in the past including recently as previously described. It is unclear at the moment as to whether her discomfort is related to her und erlying cardiovascular status or a noncardiac condition. However, she may need to be considered, unless there is another etiology to explain it, for reevaluation in the cardiac catheterization laboratory despite her recent pharmacologic stress nuclear imaging study suggesting no ongoing myocardial ischemia. In the meantime she will continue medical management. 2. CAD status post PCI Again she will continue to be monitored. She will continue medical therapy. She may need reevaluation in the cardiac catheterization laboratory. This was discussed with her. She was agreeable to this approach if need be. 3. Status post PDA repair She has a history of a remote PDA repair. There is been no obvious objective findings or issues raised with respect to this concern. 4. Hyperlipidemia She will continue medical therapy. 5. Hypertension Her blood pressures will be followed. Her medications can be adjusted as needed. 6. Diabetes mellitus She will continue under the care of internal medicine. 7. End-stage renal disease on chronic hemodialysis She will continue under the care of nephrology. Of note, it is unclear whether they are all of her symptoms are cardiovascular related. There is a concern based upon her gastrointestinal symptoms as to whether or not she may have experienced some form of vasovagal mediated event. However based upon her underlying cardiovascular history including her concerns of chest pressure and reported response after medical therapy with aspirin and nitrates there would be a concern as to whether or not her underlying CAD process is playing a role. Thus, as noted above, despite her recent pharmacologic stress test findings, depending upon her clinical course and/or any other findings, she may need to be reevaluated in the cardiac c atheterization laboratory. Comment: The above was discussed with patient and Dr. Frank. This note was generated with [employer] software. It may contain incorrect words, spelling, and punctuation that were not noted in checking the note before signing.
[2018-11-06] MEDS: Carvedilol 25 MG Tablet PO (21:44)
[2018-11-06] MEDS: Heparin Injection (Vial) 5,000 UNIT/ML VIAL 5000 UNIT SC (21:44)
[2018-11-06] MEDS: Atorvastatin Calcium 20 MG Tablet PO (21:45)
[2018-11-06] MEDS: Pantoprazole Sodium 20 MG Tablet PO (21:45)
[2018-11-06 21:46] LABS: Bedside Glucose 248 mg/dL (70-110)
[2018-11-07] VITALS (9 sets, daily range): BP systolic 98–153; BP diastolic 36–72; PULSE 72–88; RESP 16–20; TEMP 36.3–36.6; O2SAT 94–100
[2018-11-07] MEDS: 0.9% Normal Saline 1,000 ML 100 ML IV (02:31)
[2018-11-07] MEDS: proMETHazine 25 MG Tablet PO (02:31)
[2018-11-07 06:55] LABS: Bedside Glucose 204 mg/dL (70-110)
--- NOTE | 2018-11-07 08:41 | PCM.PN.CARD ---
Subjectve: Patient doing well this morning. Telemetry negative. EKG shows normal sinus rhythm with old known lateral ST segment depression. Troponins essentially negative. Objective: Vital Signs Temp Pulse Resp BP Pulse Ox 97.8 F 88 20 H 147/45 H 96 11/07/18 04:45 11/07/18 07:01 11/07/18 04:45 11/07/18 04:45 11/07/18 04:45 Oxygen Flow Rate (L/min) 3 Oxygen Delivery Method Nasal Cannula Weight: 205 lb 0.478 oz Body Mass Index (BMI) 33.0 Finger Stick Blood Glucose 118 Orthostatic Vital Signs Start: 11/06/18 20:07 Freq: q24h Status: Active Protocol: Activity Type Activity Date Activity User E-Sign Co-Sign Detail Recorded Client Recorded Date Recorded By Document 11/07/18 04:45 AR [id number] 11/07/18 05:06 AR 11/07/18 04:45 Orthostatic Vitals Standing -Blood Pressure (90/60-120/80) 153/45 H -Extremity Use Right Arm -Pulse Rate (60-100) 86 Sitting -Blood Pressure (90/60-120/80) 151/36 H -Extremity Use Right Arm -Pulse Rate (60-100) 84 Lying -Blood Pressure (90/60-120/80) 147/45 H -Extremity Use Right Arm -Pulse Rate (60-100) 82 Intake and Output for Last 24 Hours 11/05/18 11/06/18 11/07/18 23:59 23:59 23:59 Intake Total 1184 / 1184 1300 / 1300 Balance 1184 / 1184 1300 / 1300 General: Awake, Alert, Oriented x 3 HEENT: PERRL, EOMI, Sclera Non Icteric Neck: Supple, Good ROM, No Lymph Node Enlargement Lungs: Clear to auscultation Cardiovascular: Regular Rhythm, Normal S1, Normal S2, No Murmurs, No Rubs, No Gallops Vascular: No Carotid Bruits, Normal Femoral Pulses, Normal Radial Pulses, Normal Dorsalis Pedal Pulse, Normal Posterior Tibial Pulses Abdomen: Bowel Sounds Present, Soft, Non Tender, No HSM, No Organomegaly Extremities: No Cyanosis, No Clubbing, No edema Neurological: No Focal Motor or Sensory Deficit 11/06/18 14:13: WBC 5.8, RBC 2.83 L, Hgb 9.1 L, Hct 28.8 L, MCV 101.8 H, MCH 32.2 H, MCHC 31.6 L, RDW 18.7 H, RDW Differential 68.6 H, Plt Count 121 L, MPV 8.6, Immature Gran % (Auto) 0.300, Neut % (Auto) 74.8 H, Lymph % (Auto) 15.2 L, [place] % (Auto) 3.1, Eos % (Auto) 6.4 H, Baso % (Auto) 0.2, Absolute Neuts (auto) 4.3, Total Counted Not Reportable 11/06/18 14:13: Sodium 135 L, Potassium 4.0, Chloride 96 L, Carbon Dioxide 31.0, Anion Gap 8, BUN 43 H, Creatinine 5.65 H, Est GFR (MDRD) Af Amer 11 L, Est GFR (MDRD) Non-Af 9 L, BUN/Creatinine Ratio 7.6 L, Glucose 248 H, Calcium 8.0 L, Troponin I 0.051 H 11/06/18 17:49: Troponin I 0.045 11/06/18 20:45: Troponin I 0.043 Rhythm: EKG: ECHO: Stress Test: Cardiac Cath: PCI: CT Surgery: Holter monitor: EPS: PPM: CXR: Chest CT Scan: Medical Necessity - Tobacco Use Smoking Status: Current every day smoker Tobacco Use: Cigarettes Assessment/Plan 1. Coronary artery disease: The patient presents with 2 episodes of atypical, nonexertional chest pain, both of which occurred when she was off of her O2 nasal cannula. Patient gets no chest pain or anginal symptoms with ambulation or during dialysis. Patient was found to have significant hypertension on several blood pressure checks. Her troponins are essentially negative. Her EKG shows no overt changes. The patient was recently admitted on 10/02/18 for similar chest pain symptoms and underwent a non-walking nuclear stress test which demonstrated old anterior apical infarct and no evidence of ischemia. I reviewed her catheterization film from February 2018 at which time we had implanted additional LAD stents with an excellent result. She has remaining diffuse small vessel left circumflex disease which most likely is not amenable to stenting given the small size. Her right coronary artery has no overt lesions as of that time. I given the patient the option of medical therapy versus repeat catheterization to reassess her LAD stents and to determine if she has any additional coronary disease. It is possible that her nuclear stress test was unable to chicken picker her ischemia of her circumflex however I am not sure if he would do anything else other than medical management anyhow. After much discussion the patient has elected to go with medical therapy and failing that, we will then proceed with left heart catheterization. We will increase her Imdur to 60 mg p.o. twice daily and have encouraged her to continue her O2 therapy at all times to avoid hypoxic episodes that may induce anxiety and chest pain. In the meantime, she will continue her baby aspirin, Plavix. Her hemoglobin although low appears to be stable. This is most likely a result of her chronic renal insufficiency. 2. Hyperlipidemia: Continue Lipitor therapy. 3. If the patient ambulates this afternoon after her second dose of Imdur, and develops no chest pain with ambulation, she may be discharged later on this evening. If however she develops exertional anginal symptoms, I have a low threshold for repeat catheterization tomorrow morning. 4. Thank you very much for the opportunity to participate in the cardiac care of your patient. Code Visit Inpatient E&M: [id number] Subs Hosp L2
[2018-11-07] MEDS: Aspirin 81 MG TAB.CHEW PO (08:51)
[2018-11-07] MEDS: Carvedilol 25 MG Tablet PO (08:51)
[2018-11-07] MEDS: Calcium Acetate 667 MG Capsule 1334 MG PO ×2 (08:51→12:23)
[2018-11-07] MEDS: Folic Acid/Vitamin B Comp W-C 1 Capsule 1 CAP PO (08:51)
[2018-11-07] MEDS: FLUoxetine 20 MG Capsule 40 MG PO (08:52)
[2018-11-07] MEDS: Clopidogrel Bisulfate 75 MG Tablet PO (08:52)
[2018-11-07] MEDS: Lisinopril 20 MG Tablet PO (08:52)
[2018-11-07] MEDS: Isosorbide Mononitrate 60 MG Tablet PO (08:52)
[2018-11-07] MEDS: Pantoprazole Sodium 20 MG Tablet PO (08:52)
[2018-11-07] MEDS: Sodium Bicarbonate 650 MG Tablet PO ×2 (08:52→12:23)
[2018-11-07 11:51] LABS: Bedside Glucose 151 mg/dL (70-110)
[2018-11-07] MEDS: Insulin Lispro 100 UNIT/ML INSULN.PEN 10 UNIT SC (12:25)
--- NOTE | 2018-11-07 12:50 | DCINST_ITS ---
- Discharge Diagnoses Current Active Problems: Current Active and Chronic Problems (Last Reviewed 10/14/18 @ 11:43 by Roberto Roman DO) Chest pain (Acute) You will use the following diet at home:: Calorie/Carbohydrate Controlled (specify 1200, 1400, etc) - 1800 bridger Your food should be the consistency of: Regular Your liquids should be the consistency of: Regular/Thin Discharge Activity: Return to Normal Activity Weight Bearing Status: Full weight bearing Allergies/Adverse Reactions: Allergies latex Allergy (Verified 10/25/18 14:40) Rash prochlorperazine [From Compazine] Allergy (Verified 10/25/18 14:40) Unknown levofloxacin [From Levaquin] Adverse Reaction (Verified 10/25/18 14:40) PT CAN'T REMEMBER PT CAN'T REMEMBER metoclopramide HCl [From Reglan] Adverse Reaction (Verified 10/25/18 14:40) Nausea NSAIDS (Non-Steroidal Anti-Inflamma Adverse Reaction (Verified 10/25/18 14:40) kidney function oxycodone HCl [From Percocet] Adverse Reaction (Verified 10/25/18 14:40) HALLUCINATIONS Medications to take at Discharge Aspirin [Aspirin, Baby] 81 mg PO DAILY@0800 01/26/16 Calcium Acetate [Phoslo Gel Cap] 1,334 mg PO TIDCM 01/26/16 Ergocalciferol [Vitamin D] 50,000 unit PO MO 01/26/16 Insulin Aspart [Novolog Flexpen] 10 units SC TIDCM 01/26/16 Insulin Glargine,Hum.rec.anlog [Lantus] 5 unit SQ QHS 01/09/17 proMETHazine tablet [Phenergan tablet] 25 mg PO Q6H PRN PRN #10 tab 03/06/17 Lisinopril 20 mg PO DAILY 03/29/17 Sodium Bicarbonate 650 mg PO 4X/DAY 03/29/17 Atorvastatin Calcium [Lipitor] 20 mg PO QHS 05/26/18 Carvedilol [Coreg] 25 mg PO BID 05/26/18 Loperamide HCl [Imodium A-D] 2 mg PO TID PRN 05/26/18 Pantoprazole Sodium [Protonix] 20 mg PO BID 05/26/18 Clopidogrel Bisulfate [Plavix] 75 mg PO DAILY 07/01/18 ALPRAZolam [Xanax] 0.5 mg PO TUTHSA PRN 08/09/18 B Complex W-C No.20/Folic Acid [Nephrocaps Softgel] 1 mg PO DAILY 08/09/18 Fluoxetine HCl 40 mg PO DAILY 08/09/18 Lidocaine/Prilocaine HCl [Emla Cream W/Tegaderm] 1 applicatio TOPICAL X1 10/01/18 Nystatin Powder [Mycostatin Powder] 1 applic TOPICAL BID 10/14/18 Cyclobenzaprine [Flexeril] 10 mg PO TID PRN #20 tab 10/25/18 hydrOXYzine tablet [Atarax tablet] 10 mg PO TUTHSA 11/06/18 Isosorbide Mononitrate [Imdur] 60 mg PO BID #60 tablet 11/07/18 The following prescriptions were given: Isosorbide Mononitrate [Imdur] 60 mg PO BID #60 tablet Primary Care Physician: Christopher Foy MD [Primary Care Provider] - Please follow up with your Primary Care Physician in: at next visit Test Results: Test results from this visit will be discussed in further detail at your follow- up appointment, if applicable. Please Follow Up With: Mark Magdaleno MD When: as directed
--- NOTE | 2018-11-12 18:05 | DS.PCM_ITS ---
Discharge Date and Diagnosis Date of Admission: 11/06/18 Date of Discharge: 11/07/18 - Primary Discharge Diagnosis #1 angina pectoris #2 hyperlipidemia #3 coronary artery disease #4 chronic obstructive pulmonary disease #5 nonischemic cardiomyopathy #6 end-stage renal disease requiring dialysis - Secondary Discharge Diagnosis Chronic Problems (Last Reviewed 10/14/18 @ 11:43 by Roberto Roman DO) CAD (coronary artery disease) (Chronic) Stented coronary artery (Chronic 02/26/18) FFR of LAD 0.82; VIKY of mid LAD with 2.5 X 24 mm Promus Synergy, OM <50% stenosis per Dr. Magdaleno @ [facility] Atherosclerotic heart disease of [place] coronary artery without angina pectoris (Chronic) S/P PTCA/VIKY to mid LAD in February 2018 OM #1 noted to be 50%; ESRD (end stage renal disease) on dialysis (Chronic) Decubitus ulcer, stage III (Chronic) Anemia, chronic disease (Chronic) Pilonidal cyst with abscess (Chronic) GABRIEL (obstructive sleep apnea) (Chronic) Depression (Chronic) Anxiety (Chronic) HTN (hypertension) (Chronic) Nonischemic cardiomyopathy (Chronic) EF 45% per echo 07/01/2018 S/P repair of PDA (patent ductus arteriosus) (Chronic) At young age Diabetes mellitus type 1 (Chronic) Hyperlipidemia (Chronic) Obesity (BMI 30.0-34.9) (Chronic) Gastroparesis (Chronic) Hospital Course and Treatment Operations: None Procedures: None Summary of Care Provided: The patient is a 42 year old F was seen in the emergency room at [facility] with chief complaint of chest pain which he described as a heaviness and a tightness in her chest. Work-up in the emergency room included an EKG which showed a normal sinus rhythm without ischemic changes, chemistries were unremarkable, troponin was 0.051. Chest x-ray showed mild pulmonary congestion but the patient had no physical signs of congestive heart failure. Patient was placed in observation status on PCU for chest pain, cardiac enzymes were cycled and these did not elevate. Patient was seen in consultation by cardiology who discussed her medical condition and possible treatment scenarios, patient was given the choice of undergoing a heart catheterization but she declined and instead opted to be treated medically. On 11/07/2018, patient was seen and examined and felt to be in stable condition for discharge home. Physical exam: On examination she appeared in good health and spirits. Vital signs as documented. Skin warm and dry and without overt rashes. Neck without JVD. Lungs clear. Heart exam notable for regular rhythm, normal sounds and absence of murmurs, rubs or gallops. Abdomen unremarkable and without evidence of organomegaly, masses, or abdominal aortic enlargement. Extremities nonedematous. Neuro: Cranial nerves II through XII are grossly intact, no focal motor deficits were noted, sensation to light touch and pinprick is intact. Psych: Patient is alert and oriented x3, she does not appear anxious or depressed - Physical Exam Vital Signs Temp Pulse Resp BP Pulse Ox 97.8 F 72 16 109/53 L 94 11/07/18 09:15 11/07/18 10:57 11/07/18 09:15 11/07/18 11:47 11/07/18 09:25 Oxygen Flow Rate (L/min) 3 Oxygen Delivery Method Nasal Cannula Weight: 93 kg Body Mass Index (BMI) 33.0 Finger Stick Blood Glucose 118 Discharge Activity: Return to Normal Activity Weight Bearing Status: Full weight bearing Home Medications: Medications to take at Discharge Aspirin [Aspirin, Baby] 81 mg PO DAILY@0800 01/26/16 Calcium Acetate [Phoslo Gel Cap] 1,334 mg PO TIDCM 01/26/16 Ergocalciferol [Vitamin D] 50,000 unit PO MO 01/26/16 Insulin Aspart [Novolog Flexpen] 10 units SC TIDCM 01/26/16 Insulin Glargine,Hum.rec.anlog [Lantus] 5 unit SQ QHS 01/09/17 proMETHazine tablet [Phenergan tablet] 25 mg PO Q6H PRN PRN #10 tab 03/06/17 Lisinopril 20 mg PO DAILY 03/29/17 Sodium Bicarbonate 650 mg PO 4X/DAY 03/29/17 Atorvastatin Calcium [Lipitor] 20 mg PO QHS 05/26/18 Carvedilol [Coreg] 25 mg PO BID 05/26/18 Loperamide HCl [Imodium A-D] 2 mg PO TID PRN 05/26/18 Pantoprazole Sodium [Protonix] 20 mg PO BID 05/26/18 Clopidogrel Bisulfate [Plavix] 75 mg PO DAILY 07/01/18 ALPRAZolam [Xanax] 0.5 mg PO TUTHSA PRN 08/09/18 B Complex W-C No.20/Folic Acid [Nephrocaps Softgel] 1 mg PO DAILY 08/09/18 Fluoxetine HCl 40 mg PO DAILY 08/09/18 Lidocaine/Prilocaine HCl [Emla Cream W/Tegaderm] 1 applicatio TOPICAL X1 10/01/18 Nystatin Powder [Mycostatin Powder] 1 applic TOPICAL BID 10/14/18 Cyclobenzaprine [Flexeril] 10 mg PO TID PRN #20 tab 10/25/18 hydrOXYzine tablet [Atarax tablet] 10 mg PO TUTHSA 11/06/18 Isosorbide Mononitrate [Imdur] 60 mg PO BID #60 tablet 11/07/18 Following Prescrptions Were Given to Patient: Isosorbide Mononitrate [Imdur] 60 mg PO BID #60 tablet Primary Care Physician: Christopher Foy MD [Primary Care Provider] - Please follow up with your Primary Care Physician in: at next visit Please Follow Up With: Mark Magdaleno MD When: as directed Disposition: Home Minutes spent on discharge:: 30 Patient Condition:: Stable Medical Necessity - Tobacco Use Smoking Status: Current every day smoker Tobacco Use: Cigarettes Meaningful Use Info Meaningful Use Diagnoses (Choose all that apply): None applicable Code Visit OBSV E&M: 44766 Observation care discharge
== END 2018-11-07 13:36 | disposition home or self-care (01) ==
LOC: ED 14:38 → PCU 16:15
PROVIDERS: Admitting Provider Internal Medicine; Emergency Provider Emergency Medicine; Family Provider Family Medicine; PCP Family Medicine; Visit Provider Internal Medicine
DX: R07.89 Other chest pain (principal); R06.02 Shortness of breath; I25.10 Atherosclerotic heart disease of native coronary artery without angina pectoris; I13.10 Hypertensive heart and chronic kidney disease without heart failure, with stage 1 through stage 4 chronic kidney disease, or unspecified chronic kidney disease; I43 Cardiomyopathy in diseases classified elsewhere; N18.6 End stage renal disease; E11.22 Type 2 diabetes mellitus with diabetic chronic kidney disease; F41.9 Anxiety disorder, unspecified; F32.9 Major depressive disorder, single episode, unspecified; R11.2 Nausea with vomiting, unspecified; E78.5 Hyperlipidemia, unspecified; G47.33 Obstructive sleep apnea (adult) (pediatric); E66.9 Obesity, unspecified; L89.93 Pressure ulcer of unspecified site, stage 3; D63.8 Anemia in other chronic diseases classified elsewhere; F17.210 Nicotine dependence, cigarettes, uncomplicated; Z95.5 Presence of coronary angioplasty implant and graft; Z93.3 Colostomy status; Z99.2 Dependence on renal dialysis; Z79.4 Long term (current) use of insulin; Z79.899 Other long term (current) drug therapy; Z79.82 Long term (current) use of aspirin; Z79.02 Long term (current) use of antithrombotics/antiplatelets; Z68.33 Body mass index [BMI] 33.0-33.9, adult; Z71.3 Dietary counseling and surveillance; I25.2 Old myocardial infarction
CPT/HCPCS: 36415; 71045; 80048; 82962; 83690; 84484; 85025; 93005; 96361; 96372; 96374; 99218; 99285; 99406; J7030; A4216; G0378; J2405

== ENCOUNTER 2018-11-14 15:59 | Emergency (ER) | payer MEDICARE, SELFPAY ==
[2018-11-06 17:27] VITALS: BMI 33.0
[2018-11-14 16:00] VITALS: BP 116/72; PULSE 104; RESP 16; TEMP 36.9; O2SAT 87; BMI 32.3
--- NOTE | 2018-11-14 16:14 | VDLE_ITS ---
Reason For Study: Swelling RIGHT LEFT CFV is compressible, spontaneous, competent GSV is normal. and demonstrates pulsatile venous flow. CFV is compressible, spontaneous, competent, Procedure and demonstrates pulsatile venous flow. Exam performed portable in ED. FV is compressible, spontaneous, competent A preliminary report was called and/or faxed and demonstrates pulsatile venous flow. to ED. POP V is compressible, spontaneous, competent and demonstrates pulsatile venous flow. T/P Trunk is compressible. PTV is compressible. LT PerV is compressible. Interpretation Summary There is no evidence of left lower extremity deep vein thrombosis. Left greater saphenous vein appears patent and compressible segmentally. Pulsitile venous flow is noted bilaterally suggestive of proximal venous hypertension. Clinical correlation would be appropriate. Ordering Physician: Pio Mayen Referring Physician: Christopher Foy Performed By: Viktoria Foreman RVT
--- NOTE | 2018-11-14 17:16 | ED.DCSUM_ITS ---
History of Present Illness Chief Complaint: Lower Extremity Injury Informant: Patient Onset: Days - 3 Context: Gradual Onset Timing: Continuous Current Severity: Mild Maximum Severity: Mild Narrative: Patient presenting for evaluation secondary to left leg swelling and drainage from an old surgical wound. Patient reports that over the course last 3 days she is noticed some redness and swelling in her left leg. This is associated with some mild pain. Its atraumatic. Patient denies any history of DVT or PE, but her primary care physician was concerned of this and sent her to the emergency department for evaluation of this. Patient also states that she had plastic surgery performed about a year ago for a recurrent pilonidal cyst, and over the course of the last couple of weeks to months she has noticed foul- smelling drainage coming from the area. She denies any presence of fevers. She has shortness of breath at baseline which is unchanged she denies any chest pain associated with this. Pain in the leg is mild worse with palpation edema is pitting. Review of systems otherwise negative. Past Medical History - Allergies and Home Meds Allergies/Adverse Reactions: Allergies latex Allergy (Verified 10/25/18 14:40) Rash prochlorperazine [From Compazine] Allergy (Verified 10/25/18 14:40) Unknown levofloxacin [From Levaquin] Adverse Reaction (Verified 10/25/18 14:40) PT CAN'T REMEMBER PT CAN'T REMEMBER metoclopramide HCl [From Reglan] Adverse Reaction (Verified 10/25/18 14:40) Nausea NSAIDS (Non-Steroidal Anti-Inflamma Adverse Reaction (Verified 10/25/18 14:40) kidney function oxycodone HCl [From Percocet] Adverse Reaction (Verified 10/25/18 14:40) HALLUCINATIONS Primary Care Physician: Christopher Foy MD [Primary Care Provider] - Surgical History: angioplasty, appendectomy, hysterectomy - and BSO, - - c- sections, L breast I+D for abscess, fistula placement DELMIS, Abe ankle surgery, appendectomy, PDA repair. Excision pilonidal cyst ulcer about 4 years ago. Colostomy placed due to rectal abscess/wound, patent ductus repair, drug-eluting stent placement left anterior descending coronary artery February 2018. Smoking Status: Current every day smoker - Family History Maternal Family History: Reports: Cancer, COPD, Diabetes, Hypertension, Renal Disease, Stroke Additional Family History: Father also has diabetes Paternal Family History: Reports: Diabetes Sibling Family History: Reports: Cancer, Diabetes Review of Systems All systems negative except as indicated General: Denies: Fever Respiratory: Reports: Dyspnea Musculoskeletal: Reports: - - Left leg swelling redness and mild pain Skin: Reports: - - Drainage from old pilonidal cyst wound Physical Exam Vital Signs/Narrative: Vital Signs Temp Pulse Resp BP Pulse Ox 11/14/18 16:00 98.4 F 104 H 16 116/72 87 Inital Vital Signs reviewed: Yes General: Well nourished, Well developed Head: Normocephalic Eyes: Perrl, EOMI ENT: Moist mucous membranes, No rhinorrhea Neck: Supple, Nontender Cardiovascular: Regular rate, Regular rhythm, No murmurs, - - 2+ radial pulses bilaterally symmetric, 1+ DP pulses bilaterally symmetric. Capillary refill is around 3 seconds on both feet and symmetric Respiratory: No distress, Wheezing - Mild Abdomen: Soft, Nontender, Nondistended, Normal bowel sounds Rectal: - - Examination of the patient's perirectal region shows significant condylomata at the top of the patient's gluteal fold. Going more towards the patient's rectum there does appear to be an area that somewhat open with some foul smell, but no active drainage. No palpable fluctuance or induration. Extremities: - - Left leg appears somewhat erythematous, has +1 pitting edema. Normal range of motion at the hip knee ankle and foot. No evidence of cellulitis. Skin: - - Slight erythema of the left leg Neurological: Alert, Oriented x3, Cranial nerves II-XII grossly intact, Normal Strength, Normal Sensation Diagnostic/Tx/Re-eval - Medical Decision Making Patient presented secondary to left leg redness and swelling. Duplex ultrasound was obtained was found to be negative. Patient was recommended compression and elevation for this. She has no signs of cellulitis, has no signs of vascular compromise I do not believe that further work-up is indicated. As far as the patient's drainage from her old surgical wound, she potentially has an element of infection, but also has significant HPV in the area and probably requires repeat evaluation by her plastic surgeon. Patient will be placed on a course of Bactrim, and instructed to follow-up with her plastic surgeon. ED Disposition - Plan for ED Patient: Disposition: Home or Assisted Living Diagnosis: Wound infection, Peripheral edema, HPV (human papilloma virus) infection Instructions: ED Leg Swelling Unilateral, ED Wound Infec After Surgery Prescriptions: Smz/Tmp Ds [Bactrim Ds] 1 tab PO BID #14 tab Referrals: Kayode Munroe MD [STAFF PHYSICIAN] -
== END 2018-11-14 17:20 | disposition home or self-care (01) ==
PROVIDERS: Emergency Provider Emergency Medicine; Family Provider Family Medicine; PCP Family Medicine
DX: T81.49XA Infection following a procedure, other surgical site, initial encounter (principal); R60.0 Localized edema; A63.0 Anogenital (venereal) warts; R06.00 Dyspnea, unspecified; Z95.5 Presence of coronary angioplasty implant and graft; Z93.3 Colostomy status; F17.200 Nicotine dependence, unspecified, uncomplicated
CPT/HCPCS: 93971; 99282

== ENCOUNTER 2018-12-05 08:47 | Emergency (ER) | payer MEDICARE, SELFPAY ==
[2018-12-05 08:48] VITALS: BP 96/42; PULSE 82; RESP 16; TEMP 36.4; O2SAT 100; BMI 32.3
--- NOTE | 2018-12-05 09:04 | VDLE_ITS ---
Reason For Study: Swelling Procedure LEFT Exam performed portable in ED. GSV is normal. A preliminary report was called and/or faxed CFV is compressible, spontaneous, phasic, to ED. competent, and demonstrates normal augmentation. FV is compressible, spontaneous, phasic, competent and demonstrates normal augmentation. POP V is compressible, spontaneous, phasic, competent and demonstrates normal augmentation. T/P Trunk is compressible. PTV is compressible. LT PerV is compressible. Interpretation Summary There is no evidence of left lower extremity deep vein thrombosis. Left greater saphenous vein appears patent and compressible segmentally. Ordering Physician: MD Joshua Caba Referring Physician: Christopher Foy Performed By: Viktoria Foreman RVT
--- NOTE | 2018-12-05 09:04 | RAD_ITS ---
STUDY: X-RAY CHEST REASON FOR EXAM: Female, 42 years old. Cough fever and shortness of breath. TECHNIQUE: AP and lateral views of the chest. COMPARISON: Comparison is made with prior study dated November 06, 2018. FINDINGS: There is evidence of vascular congestion and CHF with bibasilar atelectasis. Blunting of the right costo phrenic angle. There is moderate cardiac enlargement. Normal mediastinum and latrell. Normal visualized pulmonary arteries. Normal visualized aortic arch and descending thoracic aorta. Normal visualized thoracic spine. Normal visualized ribs, clavicles, and shoulders. There is no demonstrated abnormality of the visualized soft tissue structures of the upper abdomen. RAD/Chest PA and Lateral IMPRESSION: Cardiomegaly and CHF. Bibasilar atelectasis worse on the right side. Electronically Signed: Josh Hill, at 11:38 EDT , Service support ,
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
[2018-12-05] MEDS: Ceftriaxone 1 GM/50 ML BAG IV (09:25)
[2018-12-05 09:27] LABS: Absolute Lymphocyte Count 0.67 X10^3/ul (0.83-4.51); Absolute Neutrophil Count 3.8 X10^3/uL (2.0-7.7); Basophil# 0.01 X10^3/uL; Basophil% 0.2 % (0-1); Differential Indicated SCAN CRITERIA MET; Eosinophil# 0.13 X10^3/uL; Eosinophils% 2.7 % (0-5); Hematocrit 26.8 % (37-47); Hemoglobin 8.6 g/dl (12.0-15.0); Lymphocyte # 0.67 X10^3/ul (4.0); Lymphocyte % 13.8 % (19-41); Mean Corp Hgb Conc 32.1 g/gl (32-36); Mean Corpuscular Hgb 33.7 pg (27.0-32.0); Mean Corpuscular Volume 105.1 fL (81-99); Mean Platelet Vol. 9.8 fl (6.2-12.0); Monocyte# 0.19 X10^3/uL; Monocyte% 3.9 % (0-10); Neutrophil # 3.82 X10^3/uL (2.7-7.7); POSITIVE COUNT NO; POSITIVE DIFFERENTIAL NO; POSITIVE MORPHOLOGY YES; Platelet Count 120 K/mm3 (150-450); RBC Distribution Width CV 17.7 % (11.6-14.6); RBC Distribution Width SD 67.3 fl (35.1-43.9); Red Blood Count 2.55 M/mm3 (4.2-5.4); White Blood Count 4.8 K/mm3 (4.4-11.0)
[2018-12-05] MEDS: Ipratropium/Albuterol Sulfate 3 ML AMPUL.NEB INHALATION (09:33)
[2018-12-05 09:35] VITALS: PULSE 83; RESP 18
[2018-12-05 09:43] LABS: Anion Gap 8 (5-15); BUN 52 mg/dL (7-18); BUN/Creat Ratio 6.3 RATIO (10-20); Calcium,Total 7.6 mg/dL (8.5-10.1); Chloride 98 mmol/L (98-107); Creatinine, Serum 8.28 mg/dL (0.55-1.02); EST Glomerular Filtration Rate 6 mL/min (>60); Est Glom Filt Rate - Afr Amer 7 mL/min (>60); Estimated Creatinine Clearance 8.12 ml/min; Glucose 322 mg/dL (74-106); Potassium 3.5 mmol/L (3.5-5.1); Sodium Level 139 mmol/L (136-145)
--- NOTE | 2018-12-05 09:44 | ED.RN ---
creatinine 8.28, aware.
[2018-12-05 13:28] VITALS: BP 106/85; PULSE 79; RESP 20; O2SAT 90
== END 2018-12-05 13:30 | disposition home or self-care (01) ==
PROVIDERS: Emergency Provider Emergency Medicine; Family Provider Family Medicine; PCP Family Medicine
DX: L03.116 Cellulitis of left lower limb (principal); E10.22 Type 1 diabetes mellitus with diabetic chronic kidney disease; I13.2 Hypertensive heart and chronic kidney disease with heart failure and with stage 5 chronic kidney disease, or end stage renal disease; I50.9 Heart failure, unspecified; N18.6 End stage renal disease; Z99.2 Dependence on renal dialysis; J44.1 Chronic obstructive pulmonary disease with (acute) exacerbation; E10.65 Type 1 diabetes mellitus with hyperglycemia; E83.51 Hypocalcemia; Z91.19 Patient's noncompliance with other medical treatment and regimen; E66.9 Obesity, unspecified; D63.1 Anemia in chronic kidney disease; F41.9 Anxiety disorder, unspecified; I25.10 Atherosclerotic heart disease of native coronary artery without angina pectoris; F32.9 Major depressive disorder, single episode, unspecified; E10.43 Type 1 diabetes mellitus with diabetic autonomic (poly)neuropathy; K31.84 Gastroparesis; E78.5 Hyperlipidemia, unspecified; I42.8 Other cardiomyopathies; G47.33 Obstructive sleep apnea (adult) (pediatric); Z95.5 Presence of coronary angioplasty implant and graft; Z79.02 Long term (current) use of antithrombotics/antiplatelets; Z99.81 Dependence on supplemental oxygen; Z79.4 Long term (current) use of insulin; Z79.82 Long term (current) use of aspirin; Z79.899 Other long term (current) drug therapy; F17.200 Nicotine dependence, unspecified, uncomplicated
CPT/HCPCS: 71046; 80048; 85025; 93971; 94640; 96365; 99283; J7050; A4216

== ENCOUNTER 2018-12-14 00:20 | Observation (INO) | payer MEDICARE, SELFPAY ==
[2018-12-14] VITALS (13 sets, daily range): BP systolic 101–144; BP diastolic 44–75; PULSE 77–108; RESP 16–28; TEMP 36.4–36.8; O2SAT 95–99; BMI 33.4
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
--- NOTE | 2018-12-14 01:38 | EKG12_ITS ---
Test Reason : ADMIT EKG Blood Pressure : / mmHG Vent. Rate : 092 BPM Atrial Rate : 092 BPM P-R Int : 124 ms QRS Dur : 088 ms QT Int : 360 ms P-R-T Axes : 050 063 213 degrees QTc Int : 445 ms Normal sinus rhythm Anterior infarct , age undetermined Abnormal ECG When compared with ECG of 06-NOV-2018 17:03, No significant change was found Confirmed by DIVINA BEASLEY, SUSI ([id number]), film editor SHANIA SOLITARIO ([id number] on 12/19/2018 12:07:48 PM Referred By: DR ROWE Confirmed By:SUSI MURCIA MD
[2018-12-14] MEDS: Furosemide 40 MG/4 ML Vial IV ×2 (01:59→09:24)
--- NOTE | 2018-12-14 02:22 | NURSING ---
Spoke with Dr. Kulkarni. He states he has revised medication orders.
[2018-12-14] MEDS: Albuterol 2.5 MG/3 ML VIAL.NEB. INHALATION (06:42)
[2018-12-14 06:50] LABS: Bedside Glucose 199 mg/dL (70-110)
[2018-12-14] MEDS: Insulin Lispro 100 UNIT/ML INSULN.PEN SQ (06:52)
[2018-12-14 06:59] LABS: Absolute Lymphocyte Count 0.94 X10^3/ul (0.83-4.51); Absolute Neutrophil Count 5.4 X10^3/uL (2.0-7.7); Basophil# 0.02 X10^3/uL; Basophil% 0.3 % (0-1); Eosinophil# 0.41 X10^3/uL; Eosinophils% 5.7 % (0-5); Hematocrit 30.5 % (37-47); Hemoglobin 9.3 g/dl (12.0-15.0); Lymphocyte # 0.94 X10^3/ul (4.0); Lymphocyte % 13.2 % (19-41); Mean Corp Hgb Conc 30.5 g/gl (32-36); Mean Corpuscular Hgb 34.1 pg (27.0-32.0); Mean Corpuscular Volume 111.7 fL (81-99); Mean Platelet Vol. 9.1 fl (6.2-12.0); Monocyte# 0.32 X10^3/uL; Monocyte% 4.5 % (0-10); Neutrophil # 5.42 X10^3/uL (2.7-7.7); Neutrophil % 75.9 % (47-70); Platelet Count 118 K/mm3 (150-450); RBC Distribution Width CV 17.8 % (11.6-14.6); RBC Distribution Width SD 67.8 fl (35.1-43.9); Red Blood Count 2.73 M/mm3 (4.2-5.4); White Blood Count 7.1 K/mm3 (4.4-11.0)
[2018-12-14 07:00] LABS: Differential Indicated SCAN CRITERIA MET; POSITIVE COUNT NO; POSITIVE DIFFERENTIAL NO; POSITIVE MORPHOLOGY YES
[2018-12-14 07:04] LABS: International Normalized Ratio 1.2; Prothrombin Time (Protime)PT. 14.9 SECONDS (11.7-14.9)
[2018-12-14 07:25] LABS: Anion Gap 7 (5-15); BUN 26 mg/dL (7-18); BUN/Creat Ratio 4.4 RATIO (10-20); Calcium,Total 9.2 mg/dL (8.5-10.1); Chloride 103 mmol/L (98-107); Cholesterol 88 mg/dL (200); Creatinine, Serum 5.86 mg/dL (0.55-1.02); EST Glomerular Filtration Rate 8 mL/min (>60); Est Glom Filt Rate - Afr Amer 10 mL/min (>60); Estimated Creatinine Clearance 11.47 ml/min; Glucose 207 mg/dL (74-106); High Density Lipoprotein 47 mg/dL; Magnesium 2.3 mg/dL (1.6-2.6); Potassium 5.7 mmol/L (3.5-5.1); Sodium Level 140 mmol/L (136-145); Thyroid Stim Hormone (TSH) 1.37 uIU/mL (0.358-3.74); Triglycerides 52 mg/dL; Very Low Density Lipoprotein 10 mg/dL (5-40)
[2018-12-14 07:27] LABS: Differential Comment SCAN
[2018-12-14 07:28] LABS: Anisocytosis 1+; Hypochromasia 1+; Microcytosis 1+; Platelet Estimate SLT DEC (ADEQ); Polychromasia 1+
[2018-12-14] MEDS: Aspirin 81 MG TAB.CHEW PO (09:02)
[2018-12-14] MEDS: Calcium Acetate 667 MG Capsule 1334 MG PO ×3 (09:02→18:48)
[2018-12-14] MEDS: Isosorbide Mononitrate 60 MG Tablet PO (09:03)
[2018-12-14] MEDS: Carvedilol 25 MG Tablet PO (09:03)
[2018-12-14] MEDS: Clopidogrel Bisulfate 75 MG Tablet PO (09:04)
[2018-12-14] MEDS: Pantoprazole Sodium 20 MG Tablet PO (09:04)
[2018-12-14] MEDS: Folic Acid/Vitamin B Comp W-C 1 Capsule 1 CAP PO (09:04)
[2018-12-14] MEDS: FLUoxetine 20 MG Capsule 40 MG PO (09:05)
[2018-12-14] MEDS: Lisinopril 20 MG Tablet PO (09:07)
[2018-12-14] MEDS: Nystatin Powder 15gm Bottle 1 APPLIC TOPICAL (09:07)
[2018-12-14] MEDS: Sodium Bicarbonate 650 MG Tablet PO ×3 (09:07→18:48)
[2018-12-14] MEDS: Heparin Injection (Vial) 5,000 UNIT/ML VIAL 5000 UNIT SC (09:08)
[2018-12-14] MEDS: Insulin Lispro 100 UNIT/ML INSULN.PEN 10 UNIT SC ×3 (09:09→18:48)
--- NOTE | 2018-12-14 10:24 | CASEMGMT ---
Patient does not have a Healthcare Power of Printing Equipment Mechanic Apprentice or Healthcare Living Will on file at [facility]. SW let patient know this information. Ale LOWERY MSW
[2018-12-14] MEDS: Nepro with Carbsteady 237 ML Liquid 120 ML PO (11:24)
[2018-12-14 11:51] LABS: Bedside Glucose 126 mg/dL (70-110)
--- NOTE | 2018-12-14 13:06 | PCM.CONS.R ---
Problem List (1) ESRD (end stage renal disease) on dialysis Status: Chronic Consultation - Renal 12/14/18 PCP/ Referring MD: Requesting physician: [] Primary care physician: Christopher Foy MD Reason for Consultation:: ESRD - History of Present Illness History of Present Illness: The patient is a 42 year old F well-known to us from before. Known history of end-stage renal disease on hemodialysis Monday schedule. Last dialysis was on Monday. Apparently she has been having progressively worsening lower extremity edema for the last few days. She in fact went for an extra treatment on Monday for this. Despite this her edema got worse and she started having worsening shortness of breath. Was found to have pulmonary edema on x-ray. Admitted here for further care. Still complains of shortness of breath today. Review of systems negative except as above. - Allergies Allergies: Allergies latex Allergy (Verified 12/07/18 15:34) Rash prochlorperazine [From Compazine] Allergy (Verified 12/07/18 15:34) Unknown levofloxacin [From Levaquin] Adverse Reaction (Verified 12/07/18 15:34) PT CAN'T REMEMBER PT CAN'T REMEMBER metoclopramide HCl [From Reglan] Adverse Reaction (Verified 12/07/18 15:34) Nausea NSAIDS (Non-Steroidal Anti-Inflamma Adverse Reaction (Verified 12/07/18 15:34) kidney function oxycodone HCl [From Percocet] Adverse Reaction (Verified 12/07/18 15:34) HALLUCINATIONS - Current Medications Current Medications: Current Medications Acetaminophen (Tylenol) 650 mg PO Q6H PRN PRN PRN Reason: Mild pain 1-3/Temp > 100.7 F Acetaminophen/Codeine Phosphate (Tylenol#3) 1 tablet PO Q4H PRN PRN PRN Reason: PAIN Albuterol Sulfate (Ventolin Aerosols) 2.5 mg INHALATION Q2H PRN PRN PRN Reason: SOB/Wheezing Last Admin: 12/14/18 06:42 Dose: 2.5 mg Alprazolam (Xanax) 0.5 mg PO MoWeFr PRN PRN Reason: ANXIETY Aspirin (Aspirin, Baby) 81 mg PO DAILY@0800 [facility] Last Admin: 12/14/18 09:02 Dose: 81 mg Atorvastatin Calcium (Lipitor) 20 mg PO QHS [facility] Calcium Acetate (Phoslo Gel Cap) 1,334 mg PO TIDCM [facility] Last Admin: 12/14/18 11:24 Dose: 1,334 mg Carvedilol (Coreg) 25 mg PO BID [facility] Last Admin: 12/14/18 09:03 Dose: 25 mg Clopidogrel Bisulfate (Plavix) 75 mg PO DAILY [facility] Last Admin: 12/14/18 09:04 Dose: 75 mg Cyclobenzaprine HCl (Flexeril) 10 mg PO TID PRN PRN PRN Reason: MUSCLE SPASM Dextrose (D50w Syringe) 0 gm IV X1 PRN; Protocol PRN Reason: Hypoglycemia Ergocalciferol (Vitamin D) 50,000 unit PO MO [facility] Fluoxetine HCl (Prozac) 40 mg PO DAILY [facility] Last Admin: 12/14/18 09:05 Dose: 40 mg Furosemide (Lasix) 40 mg IV BIDLX [facility] Last Admin: 12/14/18 09:24 Dose: 40 mg Glucagon () 1 mg IM .X1 PRN PRN Reason: Hypoglycemia Heparin Sodium (Porcine) (Heparin Na) 5,000 unit SC Q12 [facility] Last Admin: 12/14/18 09:08 Dose: 5,000 unit Hydroxyzine HCl (Atarax Tablet) 10 mg PO MoWeFr [facility] Insulin Glargine (Lantus (Bkc)) 5 units SC QHS [facility] Insulin Human Lispro (Humalog Kwikpen (Bkc)) 0 unit SQ ACHS [facility]; Protocol Last Admin: 12/14/18 11:24 Dose: Not Given Insulin Human Lispro (Humalog Kwikpen (Bkc)) 10 unit SC TIDCM [facility] Last Admin: 12/14/18 11:25 Dose: 10 u Isosorbide Mononitrate (Imdur) 60 mg PO BID [facility] Last Admin: 12/14/18 09:03 Dose: 60 mg Lisinopril (Zestril) 20 mg PO DAILY [facility] Last Admin: 12/14/18 09:07 Dose: 20 mg Loperamide HCl (Imodium) 2 mg PO TID PRN PRN PRN Reason: STOOLING Melatonin (Melatonin) 10 mg PO QHS [facility] Morphine Sulfate () 2 mg IV Q3H PRN PRN PRN Reason: Severe Pain (7-10/10) Multivit/Ca Carb/B Cmplx/FA/Prenat (Nephrocaps, Renaphro) 1 capsule PO DAILY [facility] Last Admin: 12/14/18 09:04 Dose: 1 capsule Nitroglycerin (Nitrostat) 0.4 mg SUBLINGUAL Q5M PRN PRN Reason: CARDIAC/CHEST PAIN Nystatin (Mycostatin Powder) 1 applic TOPICAL BID [facility]; Protocol Last Admin: 12/14/18 09:07 Dose: 1 applicatio Pantoprazole Sodium (Protonix) 20 mg PO BID [facility] Last Admin: 12/14/18 09:04 Dose: 20 mg Promethazine HCl (Phenergan Tablet) 25 mg PO Q6H PRN PRN PRN Reason: NAUSEA Senna/Docusate Sodium (Senokot-S, Jenny-Colace) 2 tablet PO BID PRN PRN PRN Reason: Constipation Sodium Bicarbonate (Sodium Bicarbonate) 650 mg PO 4X/DAY [facility] Last Admin: 12/14/18 09:07 Dose: 650 mg Sodium Chloride ([place] Nasal [place]) 2 spray NASAL TID PRN PRN PRN Reason: NASAL DRYNESS Zolpidem Tartrate (Ambien (Generic)) 5 mg PO QHS PRN PRN PRN Reason: INSOMNIA - Past Medical History Past Medical History (Chronic Problems): Chronic Problems (Last Reviewed 12/07/18 @ 15:33 by Pricila Olson) COPD (chronic obstructive pulmonary disease) (Chronic) Acute on chronic systolic and diastolic heart failure, NYHA class 3 (Chronic) CAD (coronary artery disease) (Chronic) Stented coronary artery (Chronic 02/26/18) FFR of LAD 0.82; VIKY of mid LAD with 2.5 X 24 mm Promus Synergy, OM <50% stenosis per Dr. Magdaleno @ [facility] Atherosclerotic heart disease of [place] coronary artery without angina pectoris (Chronic) S/P PTCA/VIKY to mid LAD in February 2018 OM #1 noted to be 50%; ESRD (end stage renal disease) on dialysis (Chronic) Decubitus ulcer, stage III (Chronic) Anemia, chronic disease (Chronic) Pilonidal cyst with abscess (Chronic) GABRIEL (obstructive sleep apnea) (Chronic) Depression (Chronic) Anxiety (Chronic) HTN (hypertension) (Chronic) Nonischemic cardiomyopathy (Chronic) EF 45% per echo 07/01/2018 S/P repair of PDA (patent ductus arteriosus) (Chronic) At young age Diabetes mellitus type 1 (Chronic) Hyperlipidemia (Chronic) Obesity (BMI 30.0-34.9) (Chronic) Gastroparesis (Chronic) - Past Surgical History Surgical History: angioplasty, appendectomy, hysterectomy - and BSO, - - c-sections, L breast I+D for abscess, fistula placement LUE, L ankle surgery, appendectomy, PDA repair. Excision pilonidal cyst ulcer about 4 years ago. Colostomy placed due to rectal abscess/wound, patent ductus repair, drug-eluting stent placement left anterior descending coronary artery February 2018. - Social History Smoking Status: Current every day smoker - Family History Maternal Family History: Family History (Last Updated 12/07/18 @ 15:38 by Pricila Olson) Father Diabetes Mother Kidney disease CVA (cerebral vascular accident) Hypertension Diabetes Cancer History Items: Cancer, COPD, Diabetes, Hypertension, Renal Disease, Stroke Paternal Family History: Family History (Last Updated 12/07/18 @ 15:38 by Pricila Olson) Father Diabetes Mother Kidney disease CVA (cerebral vascular accident) Hypertension Diabetes Cancer History Items: Diabetes Sibling Family History: Family History (Last Updated 12/07/18 @ 15:38 by Pricila Olson) Father Diabetes Mother Kidney disease CVA (cerebral vascular accident) Hypertension Diabetes Cancer History Items: Cancer, Diabetes Review of Systems Constitutional: Denies: Chills, Fever, Weight Change HEENT: Denies: Head Aches, Sinus Congestion, Sinus Drainage Cardiovascular: Denies: Chest Pain, Palpitations Respiratory: Denies: Cough, Shortness of breath at rest, Sputum production Gastrointestinal: Denies: Abdominal Pain, Nausea, Vomiting Genitourinary: Denies: Dysuria Musculoskeletal: Denies: Joint Pain, Joint Tenderness Skin: Denies: Rash, Wounds Neurological: Denies: Numbness, Tingling, Focal weakness Psychiatric: Denies: Anxiety, Depression, Homicidal Ideations, Suicidal Ideations Hematologic/ Lymphatic: Denies: Easy Bruising, Easy Bleeding - Physical Exam General: Alert, Oriented x3, Cooperative HEENT: Atraumatic, PERRLA, EOMI, Normocephalic Neck: Supple, No JVD, Negative Carotid Bruits Lungs: Clear to auscultation, Normal air movement Cardiovascular: Regular rate, No murmurs Abdomen: Bowel Sounds Present, Soft, Non Tender Extremities: No edema, Capillary Refill Less than 3 Seconds Skin: No rashes, No breakdown Musculoskeletal: No Tenderness to Palpation of Joints or Extremities Neurological: Cranial nerves II-XII grossly intact Psych/Mental Status: Normal Affect, Appropriate Vital Signs Temp Pulse Resp BP Pulse Ox 97.8 F 85 22 H 126/71 H 97 12/14/18 08:46 12/14/18 12:00 12/14/18 08:46 12/14/18 08:46 12/14/18 08:46 Oxygen Flow Rate (L/min) 4 Oxygen Delivery Method Nasal Cannula Weight: 94.2 kg Body Mass Index (BMI) 33.4 Finger Stick Blood Glucose 118 Intake and Output for Last 24 Hours 12/12/18 12/13/18 12/14/18 23:59 23:59 23:59 Intake Total 347 / 347 Output Total 100 / 100 Balance 247 / 247 Laboratory Tests Past 24 Hrs 12/14/18 12/14/18 12/14/18 02:20 06:50 06:50 WBC 7.1 RBC 2.73 L Hgb 9.3 L Hct 30.5 L MCV 111.7 H MCH 34.1 H MCHC 30.5 L RDW 17.8 H RDW Differential 67.8 H Plt Count 118 L MPV 9.1 Immature Gran % (Auto) 0.400 Neut % (Auto) 75.9 H Lymph % (Auto) 13.2 L [place] % (Auto) 4.5 Eos % (Auto) 5.7 H Baso % (Auto) 0.3 Absolute Neuts (auto) 5.4 Absolute Lymphs (auto) 0.94 Total Counted Not Reportable Differential Comment SCAN Platelet Estimate SLT DEC Polychromasia 1+ Hypochromasia 1+ Anisocytosis 1+ Microcytosis 1+ PT 14.9 INR 1.2 Sodium Potassium Chloride Carbon Dioxide Anion Gap BUN Creatinine Estim Creat Clear Calc Est GFR (MDRD) Af Amer Est GFR (MDRD) Non-Af BUN/Creatinine Ratio Glucose Calcium Magnesium Troponin I 0.196 H Triglycerides Cholesterol LDL Cholesterol VLDL Cholesterol HDL Cholesterol TSH 12/14/18 12/14/18 12/14/18 06:50 06:54 09:34 WBC RBC Hgb Hct MCV MCH MCHC RDW RDW Differential Plt Count MPV Immature Gran % (Auto) Neut % (Auto) Lymph % (Auto) [place] % (Auto) Eos % (Auto) Baso % (Auto) Absolute Neuts (auto) Absolute Lymphs (auto) Total Counted Differential Comment Platelet Estimate Polychromasia Hypochromasia Anisocytosis Microcytosis PT INR Sodium 140 Cancelled Potassium 5.7 H Cancelled Chloride 103 Cancelled Carbon Dioxide 30.0 Cancelled Anion Gap 7 Cancelled BUN 26 H Cancelled Creatinine 5.86 H Cancelled Estim Creat Clear Calc 11.47 Cancelled Est GFR (MDRD) Af Amer 10 L Cancelled Est GFR (MDRD) Non-Af 8 L Cancelled BUN/Creatinine Ratio 4.4 L Cancelled Glucose 207 H Cancelled Calcium 9.2 Cancelled Magnesium 2.3 Cancelled Troponin I 0.182 H Cancelled 0.154 H Triglycerides 52 Cancelled Cholesterol 88 Cancelled LDL Cholesterol 31 Cancelled VLDL Cholesterol 10 Cancelled HDL Cholesterol 47 Cancelled TSH 1.37 Cancelled POC Glucose 12/14/18 12/14/18 11:20 06:46 POC Glucose 126 H 199 H Assessment/Plan All Active Problems (Last Reviewed 12/07/18 @ 15:33 by Pricila Olson) COPD exacerbation (Acute) Hypoxia (Acute) Respiratory distress (Acute) Bronchitis (Acute) Chest pain (Acute) Dysmenorrhea (Resolved) Hx of necrotizing fascIItis (Resolved) Iron deficiency anemia due to chronic blood loss (Resolved) Systolic congestive heart failure (Resolved) End-stage renal disease. Dialysis today. Dyspnea due to congestive heart failure. We will try to challenge dry weight today. Discussed with hospitalist. Can be discharged after dialysis today if she feels fine.
--- NOTE | 2018-12-14 13:10 | CON.PCM_ITS ---
Problem List (1) ESRD (end stage renal disease) on dialysis Status: Chronic Consultation - Renal 12/14/18 PCP/ Referring MD: Requesting physician: [] Primary care physician: Christopher Foy MD Reason for Consultation:: ESRD - History of Present Illness History of Present Illness: The patient is a 42 year old F well-known to us from before. Known history of end-stage renal disease on hemodialysis Monday schedule. Last dialysis was on Monday. Apparently she has been having progressively worsening lower extremity edema for the last few days. She in fact went for an extra treatment on Monday for this. Despite this her edema got worse and she started having worsening shortness of breath. Was found to have pulmonary edema on x-ray. Admitted here for further care. Still complains of shortness of breath today. Review of systems negative except as above. - Allergies Allergies: Allergies latex Allergy (Verified 12/07/18 15:34) Rash prochlorperazine [From Compazine] Allergy (Verified 12/07/18 15:34) Unknown levofloxacin [From Levaquin] Adverse Reaction (Verified 12/07/18 15:34) PT CAN'T REMEMBER PT CAN'T REMEMBER metoclopramide HCl [From Reglan] Adverse Reaction (Verified 12/07/18 15:34) Nausea NSAIDS (Non-Steroidal Anti-Inflamma Adverse Reaction (Verified 12/07/18 15:34) kidney function oxycodone HCl [From Percocet] Adverse Reaction (Verified 12/07/18 15:34) HALLUCINATIONS - Current Medications Current Medications: Current Medications Acetaminophen (Tylenol) 650 mg PO Q6H PRN PRN PRN Reason: Mild pain 1-3/Temp > 100.7 F Acetaminophen/Codeine Phosphate (Tylenol#3) 1 tablet PO Q4H PRN PRN PRN Reason: PAIN Albuterol Sulfate (Ventolin Aerosols) 2.5 mg INHALATION Q2H PRN PRN PRN Reason: SOB/Wheezing Last Admin: 12/14/18 06:42 Dose: 2.5 mg Alprazolam (Xanax) 0.5 mg PO MoWeFr PRN PRN Reason: ANXIETY Aspirin (Aspirin, Baby) 81 mg PO DAILY@0800 [facility] Last Admin: 12/14/18 09:02 Dose: 81 mg Atorvastatin Calcium (Lipitor) 20 mg PO QHS [facility] Calcium Acetate (Phoslo Gel Cap) 1,334 mg PO TIDCM [facility] Last Admin: 12/14/18 11:24 Dose: 1,334 mg Carvedilol (Coreg) 25 mg PO BID [facility] Last Admin: 12/14/18 09:03 Dose: 25 mg Clopidogrel Bisulfate (Plavix) 75 mg PO DAILY [facility] Last Admin: 12/14/18 09:04 Dose: 75 mg Cyclobenzaprine HCl (Flexeril) 10 mg PO TID PRN PRN PRN Reason: MUSCLE SPASM Dextrose (D50w Syringe) 0 gm IV X1 PRN; Protocol PRN Reason: Hypoglycemia Ergocalciferol (Vitamin D) 50,000 unit PO MO [facility] Fluoxetine HCl (Prozac) 40 mg PO DAILY [facility] Last Admin: 12/14/18 09:05 Dose: 40 mg Furosemide (Lasix) 40 mg IV BIDLX [facility] Last Admin: 12/14/18 09:24 Dose: 40 mg Glucagon () 1 mg IM .X1 PRN PRN Reason: Hypoglycemia Heparin Sodium (Porcine) (Heparin Na) 5,000 unit SC Q12 [facility] Last Admin: 12/14/18 09:08 Dose: 5,000 unit Hydroxyzine HCl (Atarax Tablet) 10 mg PO MoWeFr [facility] Insulin Glargine (Lantus (Bkc)) 5 units SC QHS [facility] Insulin Human Lispro (Humalog Kwikpen (Bkc)) 0 unit SQ ACHS [facility]; Protocol Last Admin: 12/14/18 11:24 Dose: Not Given Insulin Human Lispro (Humalog Kwikpen (Bkc)) 10 unit SC TIDCM [facility] Last Admin: 12/14/18 11:25 Dose: 10 u Isosorbide Mononitrate (Imdur) 60 mg PO BID [facility] Last Admin: 12/14/18 09:03 Dose: 60 mg Lisinopril (Zestril) 20 mg PO DAILY [facility] Last Admin: 12/14/18 09:07 Dose: 20 mg Loperamide HCl (Imodium) 2 mg PO TID PRN PRN PRN Reason: STOOLING Melatonin (Melatonin) 10 mg PO QHS [facility] Morphine Sulfate () 2 mg IV Q3H PRN PRN PRN Reason: Severe Pain (7-10/10) Multivit/Ca Carb/B Cmplx/FA/Prenat (Nephrocaps, Renaphro) 1 capsule PO DAILY [facility] Last Admin: 12/14/18 09:04 Dose: 1 capsule Nitroglycerin (Nitrostat) 0.4 mg SUBLINGUAL Q5M PRN PRN Reason: CARDIAC/CHEST PAIN Nystatin (Mycostatin Powder) 1 applic TOPICAL BID [facility]; Protocol Last Admin: 12/14/18 09:07 Dose: 1 applicatio Pantoprazole Sodium (Protonix) 20 mg PO BID [facility] Last Admin: 12/14/18 09:04 Dose: 20 mg Promethazine HCl (Phenergan Tablet) 25 mg PO Q6H PRN PRN PRN Reason: NAUSEA Senna/Docusate Sodium (Senokot-S, Jenny-Colace) 2 tablet PO BID PRN PRN PRN Reason: Constipation Sodium Bicarbonate (Sodium Bicarbonate) 650 mg PO 4X/DAY [facility] Last Admin: 12/14/18 09:07 Dose: 650 mg Sodium Chloride ([place] Nasal [place]) 2 spray NASAL TID PRN PRN PRN Reason: NASAL DRYNESS Zolpidem Tartrate (Ambien (Generic)) 5 mg PO QHS PRN PRN PRN Reason: INSOMNIA - Past Medical History Past Medical History (Chronic Problems): Chronic Problems (Last Reviewed 12/07/18 @ 15:33 by Pricila Olson) COPD (chronic obstructive pulmonary disease) (Chronic) Acute on chronic systolic and diastolic heart failure, NYHA class 3 (Chronic) CAD (coronary artery disease) (Chronic) Stented coronary artery (Chronic 02/26/18) FFR of LAD 0.82; VIKY of mid LAD with 2.5 X 24 mm Promus Synergy, OM <50% stenosis per Dr. Magdaleno @ [facility] Atherosclerotic heart disease of [place] coronary artery without angina pectoris (Chronic) S/P PTCA/VIKY to mid LAD in February 2018 OM #1 noted to be 50%; ESRD (end stage renal disease) on dialysis (Chronic) Decubitus ulcer, stage III (Chronic) Anemia, chronic disease (Chronic) Pilonidal cyst with abscess (Chronic) GABRIEL (obstructive sleep apnea) (Chronic) Depression (Chronic) Anxiety (Chronic) HTN (hypertension) (Chronic) Nonischemic cardiomyopathy (Chronic) EF 45% per echo 07/01/2018 S/P repair of PDA (patent ductus arteriosus) (Chronic) At young age Diabetes mellitus type 1 (Chronic) Hyperlipidemia (Chronic) Obesity (BMI 30.0-34.9) (Chronic) Gastroparesis (Chronic) - Past Surgical History Surgical History: angioplasty, appendectomy, hysterectomy - and BSO, - - c-sections, L breast I+D for abscess, fistula placement LUE, L ankle surgery, appendectomy, PDA repair. Excision pilonidal cyst ulcer about 4 years ago. Colostomy placed due to rectal abscess/wound, patent ductus repair, drug-eluting stent placement left anterior descending coronary artery February 2018. - Social History Smoking Status: Current every day smoker - Family History Maternal Family History: Family History (Last Updated 12/07/18 @ 15:38 by Pricila Olson) Father Diabetes Mother Kidney disease CVA (cerebral vascular accident) Hypertension Diabetes Cancer History Items: Cancer, COPD, Diabetes, Hypertension, Renal Disease, Stroke Paternal Family History: Family History (Last Updated 12/07/18 @ 15:38 by Pricila Olson) Father Diabetes Mother Kidney disease CVA (cerebral vascular accident) Hypertension Diabetes Cancer History Items: Diabetes Sibling Family History: Family History (Last Updated 12/07/18 @ 15:38 by Pricila Olson) Father Diabetes Mother Kidney disease CVA (cerebral vascular accident) Hypertension Diabetes Cancer History Items: Cancer, Diabetes Review of Systems Constitutional: Denies: Chills, Fever, Weight Change HEENT: Denies: Head Aches, Sinus Congestion, Sinus Drainage Cardiovascular: Denies: Chest Pain, Palpitations Respiratory: Denies: Cough, Shortness of breath at rest, Sputum production Gastrointestinal: Denies: Abdominal Pain, Nausea, Vomiting Genitourinary: Denies: Dysuria Musculoskeletal: Denies: Joint Pain, Joint Tenderness Skin: Denies: Rash, Wounds Neurological: Denies: Numbness, Tingling, Focal weakness Psychiatric: Denies: Anxiety, Depression, Homicidal Ideations, Suicidal Ideations Hematologic/ Lymphatic: Denies: Easy Bruising, Easy Bleeding - Physical Exam General: Alert, Oriented x3, Cooperative HEENT: Atraumatic, PERRLA, EOMI, Normocephalic Neck: Supple, No JVD, Negative Carotid Bruits Lungs: Clear to auscultation, Normal air movement Cardiovascular: Regular rate, No murmurs Abdomen: Bowel Sounds Present, Soft, Non Tender Extremities: No edema, Capillary Refill Less than 3 Seconds Skin: No rashes, No breakdown Musculoskeletal: No Tenderness to Palpation of Joints or Extremities Neurological: Cranial nerves II-XII grossly intact Psych/Mental Status: Normal Affect, Appropriate Vital Signs Temp Pulse Resp BP Pulse Ox 97.8 F 85 22 H 126/71 H 97 12/14/18 08:46 12/14/18 12:00 12/14/18 08:46 12/14/18 08:46 12/14/18 08:46 Oxygen Flow Rate (L/min) 4 Oxygen Delivery Method Nasal Cannula Weight: 94.2 kg Body Mass Index (BMI) 33.4 Finger Stick Blood Glucose 118 Intake and Output for Last 24 Hours 12/12/18 12/13/18 12/14/18 23:59 23:59 23:59 Intake Total 347 / 347 Output Total 100 / 100 Balance 247 / 247 Laboratory Tests Past 24 Hrs 12/14/18 12/14/18 12/14/18 02:20 06:50 06:50 WBC 7.1 RBC 2.73 L Hgb 9.3 L Hct 30.5 L MCV 111.7 H MCH 34.1 H MCHC 30.5 L RDW 17.8 H RDW Differential 67.8 H Plt Count 118 L MPV 9.1 Immature Gran % (Auto) 0.400 Neut % (Auto) 75.9 H Lymph % (Auto) 13.2 L [place] % (Auto) 4.5 Eos % (Auto) 5.7 H Baso % (Auto) 0.3 Absolute Neuts (auto) 5.4 Absolute Lymphs (auto) 0.94 Total Counted Not Reportable Differential Comment SCAN Platelet Estimate SLT DEC Polychromasia 1+ Hypochromasia 1+ Anisocytosis 1+ Microcytosis 1+ PT 14.9 INR 1.2 Sodium Potassium Chloride Carbon Dioxide Anion Gap BUN Creatinine Estim Creat Clear Calc Est GFR (MDRD) Af Amer Est GFR (MDRD) Non-Af BUN/Creatinine Ratio Glucose Calcium Magnesium Troponin I 0.196 H Triglycerides Cholesterol LDL Cholesterol VLDL Cholesterol HDL Cholesterol TSH 12/14/18 12/14/18 12/14/18 06:50 06:54 09:34 WBC RBC Hgb Hct MCV MCH MCHC RDW RDW Differential Plt Count MPV Immature Gran % (Auto) Neut % (Auto) Lymph % (Auto) [place] % (Auto) Eos % (Auto) Baso % (Auto) Absolute Neuts (auto) Absolute Lymphs (auto) Total Counted Differential Comment Platelet Estimate Polychromasia Hypochromasia Anisocytosis Microcytosis PT INR Sodium 140 Cancelled Potassium 5.7 H Cancelled Chloride 103 Cancelled Carbon Dioxide 30.0 Cancelled Anion Gap 7 Cancelled BUN 26 H Cancelled Creatinine 5.86 H Cancelled Estim Creat Clear Calc 11.47 Cancelled Est GFR (MDRD) Af Amer 10 L Cancelled Est GFR (MDRD) Non-Af 8 L Cancelled BUN/Creatinine Ratio 4.4 L Cancelled Glucose 207 H Cancelled Calcium 9.2 Cancelled Magnesium 2.3 Cancelled Troponin I 0.182 H Cancelled 0.154 H Triglycerides 52 Cancelled Cholesterol 88 Cancelled LDL Cholesterol 31 Cancelled VLDL Cholesterol 10 Cancelled HDL Cholesterol 47 Cancelled TSH 1.37 Cancelled POC Glucose 12/14/18 12/14/18 11:20 06:46 POC Glucose 126 H 199 H Assessment/Plan All Active Problems (Last Reviewed 12/07/18 @ 15:33 by Pricila Olson) COPD exacerbation (Acute) Hypoxia (Acute) Respiratory distress (Acute) Bronchitis (Acute) Chest pain (Acute) Dysmenorrhea (Resolved) Hx of necrotizing fascIItis (Resolved) Iron deficiency anemia due to chronic blood loss (Resolved) Systolic congestive heart failure (Resolved) End-stage renal disease. Dialysis today. Dyspnea due to congestive heart failure. We will try to challenge dry weight today. Discussed with hospitalist. Can be discharged after dialysis today if she feels fine.
--- NOTE | 2018-12-14 13:34 | PCM.DC ---
- Discharge Diagnoses Current Active Problems: Current Active and Chronic Problems (Last Reviewed 12/07/18 @ 15:33 by Pricila Olson) Acute on chronic systolic and diastolic heart failure, NYHA class 3 (Chronic) You will use the following diet at home:: Calorie/Carbohydrate Controlled (specify 1200, 1400, etc), Renal (restricted protein/sodium) Discharge Activity: Return to Normal Activity Call your doctor if you observe: Shortness of breath, Dizziness, Fainting spells, Chest pain Allergies/Adverse Reactions: Allergies latex Allergy (Verified 12/07/18 15:34) Rash prochlorperazine [From Compazine] Allergy (Verified 12/07/18 15:34) Unknown levofloxacin [From Levaquin] Adverse Reaction (Verified 12/07/18 15:34) PT CAN'T REMEMBER PT CAN'T REMEMBER metoclopramide HCl [From Reglan] Adverse Reaction (Verified 12/07/18 15:34) Nausea NSAIDS (Non-Steroidal Anti-Inflamma Adverse Reaction (Verified 12/07/18 15:34) kidney function oxycodone HCl [From Percocet] Adverse Reaction (Verified 12/07/18 15:34) HALLUCINATIONS Medications to take at Discharge Aspirin [Aspirin, Baby] 81 mg PO DAILY@0800 01/26/16 Calcium Acetate [Phoslo Gel Cap] 1,334 mg PO TIDCM 01/26/16 Ergocalciferol [Vitamin D] 50,000 unit MO 01/26/16 Insulin Aspart [Novolog Flexpen] 10 units SC TIDCM 01/26/16 Insulin Glargine,Hum.rec.anlog [Lantus] 5 unit SQ QHS 01/09/17 proMETHazine tablet [Phenergan tablet] 25 mg PO Q6H PRN PRN #10 tab 03/06/17 Lisinopril 20 mg PO DAILY 03/29/17 Sodium Bicarbonate 650 mg PO 4X/DAY 03/29/17 Atorvastatin Calcium [Lipitor] 20 mg PO QHS 05/26/18 Carvedilol [Coreg] 25 mg PO BID 05/26/18 Loperamide HCl [Imodium A-D] 2 mg PO TID PRN 05/26/18 Pantoprazole Sodium [Protonix] 20 mg PO BID 05/26/18 Clopidogrel Bisulfate [Plavix] 75 mg PO DAILY 07/01/18 ALPRAZolam [Xanax] 0.5 mg PO MOWEFR PRN 08/09/18 B Complex W-C No.20/Folic Acid [Nephrocaps Softgel] 1 mg PO DAILY 08/09/18 Fluoxetine HCl 40 mg PO DAILY 08/09/18 Lidocaine/Prilocaine HCl [Emla Cream W/Tegaderm] 1 applicatio TOPICAL MOWEFR 10/01/18 Nystatin Powder [Mycostatin Powder] 1 applic TOPICAL BID PRN 10/14/18 Cyclobenzaprine [Flexeril] 10 mg PO TID PRN #20 tab 10/25/18 hydrOXYzine tablet [Atarax tablet] 10 mg PO MOWEFR 11/06/18 Acetaminophen with Codeine [Acetaminophen-Cod #3 Tablet] 1 tab PO Q4H PRN PRN 12/14/18 Isosorbide Mononitrate [Imdur] 60 mg PO BID 12/14/18 Melatonin 10 mg PO QHS 12/14/18 Smz/Tmp Ds [Bactrim Ds] 1 tablet PO BID 12/14/18 Sodium Chloride 0.65% [[place] Nasal [place]] 2 spray NASAL TID PRN PRN spray.btl 12/14/18 Primary Care Physician: Christopher Foy MD [Primary Care Provider] - Please follow up with your Primary Care Physician in: 1 Week Test Results: Test results from this visit will be discussed in further detail at your follow-up appointment, if applicable. Please Follow Up With: Chey Martinez MD When: As scheduled Proposed Discharge Date: 12/14/18
--- NOTE | 2018-12-14 13:38 | DCINST_ITS ---
- Discharge Diagnoses Current Active Problems: Current Active and Chronic Problems (Last Reviewed 12/07/18 @ 15:33 by Pricila Olson) Acute on chronic systolic and diastolic heart failure, NYHA class 3 (Chronic) You will use the following diet at home:: Calorie/Carbohydrate Controlled (specify 1200, 1400, etc), Renal (restricted protein/sodium) Discharge Activity: Return to Normal Activity Call your doctor if you observe: Shortness of breath, Dizziness, Fainting spells , Chest pain Allergies/Adverse Reactions: Allergies latex Allergy (Verified 12/07/18 15:34) Rash prochlorperazine [From Compazine] Allergy (Verified 12/07/18 15:34) Unknown levofloxacin [From Levaquin] Adverse Reaction (Verified 12/07/18 15:34) PT CAN'T REMEMBER PT CAN'T REMEMBER metoclopramide HCl [From Reglan] Adverse Reaction (Verified 12/07/18 15:34) Nausea NSAIDS (Non-Steroidal Anti-Inflamma Adverse Reaction (Verified 12/07/18 15:34) kidney function oxycodone HCl [From Percocet] Adverse Reaction (Verified 12/07/18 15:34) HALLUCINATIONS Medications to take at Discharge Aspirin [Aspirin, Baby] 81 mg PO DAILY@0800 01/26/16 Calcium Acetate [Phoslo Gel Cap] 1,334 mg PO TIDCM 01/26/16 Ergocalciferol [Vitamin D] 50,000 unit MO 01/26/16 Insulin Aspart [Novolog Flexpen] 10 units SC TIDCM 01/26/16 Insulin Glargine,Hum.rec.anlog [Lantus] 5 unit SQ QHS 01/09/17 proMETHazine tablet [Phenergan tablet] 25 mg PO Q6H PRN PRN #10 tab 03/06/17 Lisinopril 20 mg PO DAILY 03/29/17 Sodium Bicarbonate 650 mg PO 4X/DAY 03/29/17 Atorvastatin Calcium [Lipitor] 20 mg PO QHS 05/26/18 Carvedilol [Coreg] 25 mg PO BID 05/26/18 Loperamide HCl [Imodium A-D] 2 mg PO TID PRN 05/26/18 Pantoprazole Sodium [Protonix] 20 mg PO BID 05/26/18 Clopidogrel Bisulfate [Plavix] 75 mg PO DAILY 07/01/18 ALPRAZolam [Xanax] 0.5 mg PO MOWEFR PRN 08/09/18 B Complex W-C No.20/Folic Acid [Nephrocaps Softgel] 1 mg PO DAILY 08/09/18 Fluoxetine HCl 40 mg PO DAILY 08/09/18 Lidocaine/Prilocaine HCl [Emla Cream W/Tegaderm] 1 applicatio TOPICAL MOWEFR 10/01/18 Nystatin Powder [Mycostatin Powder] 1 applic TOPICAL BID PRN 10/14/18 Cyclobenzaprine [Flexeril] 10 mg PO TID PRN #20 tab 10/25/18 hydrOXYzine tablet [Atarax tablet] 10 mg PO MOWEFR 11/06/18 Acetaminophen with Codeine [Acetaminophen-Cod #3 Tablet] 1 tab PO Q4H PRN PRN 12/14/18 Isosorbide Mononitrate [Imdur] 60 mg PO BID 12/14/18 Melatonin 10 mg PO QHS 12/14/18 Smz/Tmp Ds [Bactrim Ds] 1 tablet PO BID 12/14/18 Sodium Chloride 0.65% [[place] Nasal [place]] 2 spray NASAL TID PRN PRN spray.btl 12/14/18 Primary Care Physician: Christopher Foy MD [Primary Care Provider] - Please follow up with your Primary Care Physician in: 1 Week Test Results: Test results from this visit will be discussed in further detail at your follow- up appointment, if applicable. Please Follow Up With: Chey Martinez MD When: As scheduled Proposed Discharge Date: 12/14/18
--- NOTE | 2018-12-14 13:41 | PCM.DC.SUM ---
<Fiorella Gan - Last Filed: 12/14/18 14:00> Discharge Date and Diagnosis Date of Admission: 12/14/18 Date of Discharge: 12/14/18 - Primary Discharge Diagnosis 1. Acute on chronic systolic and diastolic CHF secondary to fluid overload as a result of end-stage renal disease 2. End-stage renal disease on hemodialysis 3. CAD status post stent with chronic elevated troponins 4. 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 Chronic hypoxic respiratory failure secondary to chronic COPD 6. GABRIEL 7. Hypertension 8. Hyperlipidemia 9. Morbid obesity 10. Anemia of chronic disease 11. Anxiety/depression 12. Tobacco dependence 13. Status post colostomy due to prior chronic wounds which are now healed - Secondary Discharge Diagnosis Chronic Problems (Last Reviewed 12/07/18 @ 15:33 by Pricila Olsno) COPD (chronic obstructive pulmonary disease) (Chronic) Acute on chronic systolic and diastolic heart failure, NYHA class 3 (Chronic) CAD (coronary artery disease) (Chronic) Stented coronary artery (Chronic 02/26/18) FFR of LAD 0.82; VIKY of mid LAD with 2.5 X 24 mm Promus Synergy, OM <50% stenosis per Dr. Magdaleno @ [facility] Atherosclerotic heart disease of [place] coronary artery without angina pectoris (Chronic) S/P PTCA/VIKY to mid LAD in February 2018 OM #1 noted to be 50%; ESRD (end stage renal disease) on dialysis (Chronic) Decubitus ulcer, stage III (Chronic) Anemia, chronic disease (Chronic) Pilonidal cyst with abscess (Chronic) GABRIEL (obstructive sleep apnea) (Chronic) Depression (Chronic) Anxiety (Chronic) HTN (hypertension) (Chronic) Nonischemic cardiomyopathy (Chronic) EF 45% per echo 07/01/2018 S/P repair of PDA (patent ductus arteriosus) (Chronic) At young age Diabetes mellitus type 1 (Chronic) Hyperlipidemia (Chronic) Obesity (BMI 30.0-34.9) (Chronic) Gastroparesis (Chronic) Hospital Course and Treatment Dr. Martinez- Nephrology Operations: None Procedures: Dialysis Summary of Care Provided: The patient is a 42 year old F admitted 12/14/2018 due to shortness of breath. 1. Acute on chronic systolic and diastolic CHF secondary to fluid overload as a result of end-stage renal disease-BNP at outside facility [phone]. Patient with increased shortness of breath. Nephrology consulted. Patient to receive dialysis prior to discharge with attempt to increase fluid removal. Okay for DC per nephrology following dialysis. Continue outpatient follow-up with nephrology as scheduled. Echocardiogram June 2018 with EF 45%, stage II diastolic dysfunction. Continue home carvedilol, isosorbide, lisinopril regimen. Follow-up with primary care provider in 1 week. 2. End-stage renal disease on hemodialysis-continue outpatient follow-up with nephrology as scheduled. Dialysis x1 during admission. 3. CAD status post stents with chronic elevated troponins-stent to mid LAD February 2018. Continue aspirin, statin, carvedilol, nitrate. 4. 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 5. Chronic hypoxic respiratory failure secondary to chronic COPD-at baseline. Continue supplement oxygen to maintain O2 at or above 90%. 6. GABRIEL 7. Hypertension-stable, continue home carvedilol, lisinopril, isosorbide regimen. 8. Hyperlipidemia-continue statin. 9. Morbid obesity-encouraged diet lifestyle modifications. 10. Anemia of chronic disease-stable. 11. Anxiety/depression-continue home Xanax, fluoxetine regimen. 12. Tobacco dependence-recently hospitalized due to facial anne from smoking with oxygen use. Wounds appear scabbed, healing. 13. Status post colostomy due to history of chronic wounds which have since healed General: Alert, Oriented x3, Cooperative HEENT: Atraumatic, PERRLA, EOMI, Normocephalic Neck: Supple, No JVD, Negative Carotid Bruits Lungs: Diminished, clear to auscultation Cardiovascular: Regular rate, Regular Rhythm, Normal S1, Normal S2, No murmurs Abdomen: Bowel Sounds Present, Soft, Non Tender, Non-Distended, colostomy in place Extremities: Capillary Refill Less than 3 Seconds, nonpitting bilateral lower extremity edema. Left forearm AV fistula. Skin: No rashes, No breakdown Musculoskeletal: No Tenderness to Palpation of Joints or Extremities, Arthritic Changes Neurological: Cranial nerves II-XII grossly intact Psych/Mental Status: Normal Affect, Appropriate Patient seen and examined prior to discharge. Physical assessment as noted above. Patient is stable for discharge with follow up recommendations as noted above. This patient was seen by SATNAM Mcgraw under the supervision of Dr. Hill. - Physical Exam Vital Signs Temp Pulse Resp BP Pulse Ox 97.8 F 85 22 H 126/71 H 97 12/14/18 08:46 12/14/18 12:00 12/14/18 08:46 12/14/18 08:46 12/14/18 08:46 Oxygen Flow Rate (L/min) 4 Oxygen Delivery Method Nasal Cannula Weight: 207 lb 10.807 oz Body Mass Index (BMI) 33.4 Finger Stick Blood Glucose 118 Intake and Output for Last 24 Hours 12/12/18 12/13/18 12/14/18 23:59 23:59 23:59 Intake Total 347 / 347 Output Total 100 / 100 Balance 247 / 247 Laboratory Tests Past 24 Hrs 12/14/18 12/14/18 12/14/18 02:20 06:50 06:50 WBC 7.1 RBC 2.73 L Hgb 9.3 L Hct 30.5 L MCV 111.7 H MCH 34.1 H MCHC 30.5 L RDW 17.8 H RDW Differential 67.8 H Plt Count 118 L MPV 9.1 Immature Gran % (Auto) 0.400 Neut % (Auto) 75.9 H Lymph % (Auto) 13.2 L [place] % (Auto) 4.5 Eos % (Auto) 5.7 H Baso % (Auto) 0.3 Absolute Neuts (auto) 5.4 Absolute Lymphs (auto) 0.94 Total Counted Not Reportable Differential Comment SCAN Platelet Estimate SLT DEC Polychromasia 1+ Hypochromasia 1+ Anisocytosis 1+ Microcytosis 1+ PT 14.9 INR 1.2 Sodium Potassium Chloride Carbon Dioxide Anion Gap BUN Creatinine Estim Creat Clear Calc Est GFR (MDRD) Af Amer Est GFR (MDRD) Non-Af BUN/Creatinine Ratio Glucose Calcium Magnesium Troponin I 0.196 H Triglycerides Cholesterol LDL Cholesterol VLDL Cholesterol HDL Cholesterol TSH 12/14/18 12/14/18 12/14/18 06:50 06:54 09:34 WBC RBC Hgb Hct MCV MCH MCHC RDW RDW Differential Plt Count MPV Immature Gran % (Auto) Neut % (Auto) Lymph % (Auto) [place] % (Auto) Eos % (Auto) Baso % (Auto) Absolute Neuts (auto) Absolute Lymphs (auto) Total Counted Differential Comment Platelet Estimate Polychromasia Hypochromasia Anisocytosis Microcytosis PT INR Sodium 140 Cancelled Potassium 5.7 H Cancelled Chloride 103 Cancelled Carbon Dioxide 30.0 Cancelled Anion Gap 7 Cancelled BUN 26 H Cancelled Creatinine 5.86 H Cancelled Estim Creat Clear Calc 11.47 Cancelled Est GFR (MDRD) Af Amer 10 L Cancelled Est GFR (MDRD) Non-Af 8 L Cancelled BUN/Creatinine Ratio 4.4 L Cancelled Glucose 207 H Cancelled Calcium 9.2 Cancelled Magnesium 2.3 Cancelled Troponin I 0.182 H Cancelled 0.154 H Triglycerides 52 Cancelled Cholesterol 88 Cancelled LDL Cholesterol 31 Cancelled VLDL Cholesterol 10 Cancelled HDL Cholesterol 47 Cancelled TSH 1.37 Cancelled POC Glucose 12/14/18 12/14/18 11:20 06:46 POC Glucose 126 H 199 H Discharge Diet: Low fat/ Low Cholesterol, Carb Control Diet, Renal Diet Discharge Activity: Return to Normal Activity Call your doctor if you observe: Shortness of breath, Dizziness, Fainting spells, Chest pain Home Medications: Medications to take at Discharge Aspirin [Aspirin, Baby] 81 mg PO DAILY@0800 01/26/16 Calcium Acetate [Phoslo Gel Cap] 1,334 mg PO TIDCM 01/26/16 Ergocalciferol [Vitamin D] 50,000 unit MO 01/26/16 Insulin Aspart [Novolog Flexpen] 10 units SC TIDCM 01/26/16 Insulin Glargine,Hum.rec.anlog [Lantus] 5 unit SQ QHS 01/09/17 proMETHazine tablet [Phenergan tablet] 25 mg PO Q6H PRN PRN #10 tab 03/06/17 Lisinopril 20 mg PO DAILY 03/29/17 Sodium Bicarbonate 650 mg PO 4X/DAY 03/29/17 Atorvastatin Calcium [Lipitor] 20 mg PO QHS 05/26/18 Carvedilol [Coreg] 25 mg PO BID 05/26/18 Loperamide HCl [Imodium A-D] 2 mg PO TID PRN 05/26/18 Pantoprazole Sodium [Protonix] 20 mg PO BID 05/26/18 Clopidogrel Bisulfate [Plavix] 75 mg PO DAILY 07/01/18 ALPRAZolam [Xanax] 0.5 mg PO MOWEFR PRN 08/09/18 B Complex W-C No.20/Folic Acid [Nephrocaps Softgel] 1 mg PO DAILY 08/09/18 Fluoxetine HCl 40 mg PO DAILY 08/09/18 Lidocaine/Prilocaine HCl [Emla Cream W/Tegaderm] 1 applicatio TOPICAL MOWEFR 10/01/18 Nystatin Powder [Mycostatin Powder] 1 applic TOPICAL BID PRN 10/14/18 Cyclobenzaprine [Flexeril] 10 mg PO TID PRN #20 tab 10/25/18 hydrOXYzine tablet [Atarax tablet] 10 mg PO MOWEFR 11/06/18 Acetaminophen with Codeine [Acetaminophen-Cod #3 Tablet] 1 tab PO Q4H PRN PRN 12/14/18 Isosorbide Mononitrate [Imdur] 60 mg PO BID 12/14/18 Melatonin 10 mg PO QHS 12/14/18 Smz/Tmp Ds [Bactrim Ds] 1 tablet PO BID 12/14/18 Sodium Chloride 0.65% [[place] Nasal [place]] 2 spray NASAL TID PRN PRN spray.btl 12/14/18 Primary Care Physician: Christopher Foy MD [Primary Care Provider] - Please follow up with your Primary Care Physician in: 1 Week Please Follow Up With: Chey Martinez MD When: As scheduled Disposition: Home Minutes spent on discharge:: 35 Patient Condition:: Stable Medical Necessity - Tobacco Use Smoking Status: Current every day smoker Tobacco Use: Secondhand Meaningful Use Info Meaningful Use Diagnoses (Choose all that apply): CHF - CHF CAM/ARB ordered at discharge?: Yes Documented LVEF (%): 45 <Anthony Hill - Last Filed: 12/14/18 15:01> Discharge Date and Diagnosis - Secondary Discharge Diagnosis Chronic Problems (Last Reviewed 12/07/18 @ 15:33 by Pricila Olson) COPD (chronic obstructive pulmonary disease) (Chronic) Acute on chronic systolic and diastolic heart failure, NYHA class 3 (Chronic) CAD (coronary artery disease) (Chronic) Stented coronary artery (Chronic 02/26/18) FFR of LAD 0.82; VIKY of mid LAD with 2.5 X 24 mm Promus Synergy, OM <50% stenosis per Dr. Magdaleno @ [facility] Atherosclerotic heart disease of [place]ena coronary artery without angina pectoris (Chronic) S/P PTCA/VIKY to mid LAD in February 2018 OM #1 noted to be 50%; ESRD (end stage renal disease) on dialysis (Chronic) Decubitus ulcer, stage III (Chronic) Anemia, chronic disease (Chronic) Pilonidal cyst with abscess (Chronic) GABRIEL (obstructive sleep apnea) (Chronic) Depression (Chronic) Anxiety (Chronic) HTN (hypertension) (Chronic) Nonischemic cardiomyopathy (Chronic) EF 45% per echo 07/01/2018 S/P repair of PDA (patent ductus arteriosus) (Chronic) At young age Diabetes mellitus type 1 (Chronic) Hyperlipidemia (Chronic) Obesity (BMI 30.0-34.9) (Chronic) Gastroparesis (Chronic) Hospital Course and Treatment Summary of Care Provided: This patient was seen in conjunction with SATNAM Mcgraw . I have independently interviewed and examined the patient and reviewed pertinent historical, laboratory, and other data. Please refer to SATNAM Mcgraw note for details of this patient's presentation, findings, and recommendations. I have reviewed SATNAM Mcgraw note and concur with documented findings. In brief, patient is a old female with multiple comorbidities including end-stage renal disease on hemodialysis, chronic heart failure with reduced ejection fraction, artery disease with previous stent placement diabetes mellitus type 2 hypertension who presented with progressive shortness of breath and assessment of acute on chronic systolic heart failure made admitted to a monitored bed for subsequent management. Nephrology was consulted for dialysis orders. Patient condition did stabilize a day after her admission discharged home to follow-up with PCP Hospital course: As documented by Fiorella Gan NP?C. - Physical Exam Vital Signs Temp Pulse Resp BP Pulse Ox 97.6 F L 86 24 H 126/44 H 95 12/14/18 14:05 12/14/18 14:05 12/14/18 14:05 12/14/18 14:05 12/14/18 14:05 Oxygen Flow Rate (L/min) 4 Oxygen Delivery Method Nasal Cannula Weight: 94.2 kg Body Mass Index (BMI) 33.4 Finger Stick Blood Glucose 118 Intake and Output for Last 24 Hours 12/12/18 12/13/18 12/14/18 23:59 23:59 23:59 Intake Total 347 / 347 Output Total 100 / 100 Balance 247 / 247 Laboratory Tests Past 24 Hrs 12/14/18 12/14/18 12/14/18 02:20 06:50 06:50 WBC 7.1 RBC 2.73 L Hgb 9.3 L Hct 30.5 L MCV 111.7 H MCH 34.1 H MCHC 30.5 L RDW 17.8 H RDW Differential 67.8 H Plt Count 118 L MPV 9.1 Immature Gran % (Auto) 0.400 Neut % (Auto) 75.9 H Lymph % (Auto) 13.2 L [place] % (Auto) 4.5 Eos % (Auto) 5.7 H Baso % (Auto) 0.3 Absolute Neuts (auto) 5.4 Absolute Lymphs (auto) 0.94 Total Counted Not Reportable Differential Comment SCAN Platelet Estimate SLT DEC Polychromasia 1+ Hypochromasia 1+ Anisocytosis 1+ Microcytosis 1+ PT 14.9 INR 1.2 Sodium Potassium Chloride Carbon Dioxide Anion Gap BUN Creatinine Estim Creat Clear Calc Est GFR (MDRD) Af Amer Est GFR (MDRD) Non-Af BUN/Creatinine Ratio Glucose Calcium Magnesium Troponin I 0.196 H Triglycerides Cholesterol LDL Cholesterol VLDL Cholesterol HDL Cholesterol TSH 12/14/18 12/14/18 12/14/18 06:50 06:54 09:34 WBC RBC Hgb Hct MCV MCH MCHC RDW RDW Differential Plt Count MPV Immature Gran % (Auto) Neut % (Auto) Lymph % (Auto) [place] % (Auto) Eos % (Auto) Baso % (Auto) Absolute Neuts (auto) Absolute Lymphs (auto) Total Counted Differential Comment Platelet Estimate Polychromasia Hypochromasia Anisocytosis Microcytosis PT INR Sodium 140 Cancelled Potassium 5.7 H Cancelled Chloride 103 Cancelled Carbon Dioxide 30.0 Cancelled Anion Gap 7 Cancelled BUN 26 H Cancelled Creatinine 5.86 H Cancelled Estim Creat Clear Calc 11.47 Cancelled Est GFR (MDRD) Af Amer 10 L Cancelled Est GFR (MDRD) Non-Af 8 L Cancelled BUN/Creatinine Ratio 4.4 L Cancelled Glucose 207 H Cancelled Calcium 9.2 Cancelled Magnesium 2.3 Cancelled Troponin I 0.182 H Cancelled 0.154 H Triglycerides 52 Cancelled Cholesterol 88 Cancelled LDL Cholesterol 31 Cancelled VLDL Cholesterol 10 Cancelled HDL Cholesterol 47 Cancelled TSH 1.37 Cancelled POC Glucose 12/14/18 12/14/18 11:20 06:46 POC Glucose 126 H 199 H Code Visit OBSV E&M: [id number] Observ/hosp same date L3
[2018-12-14] MEDS: Acetaminophen 325 MG Tablet 650 MG PO (16:50)
--- NOTE | 2018-12-14 18:35 | DIALYSIS ---
Hemodialysis x 2.75 hours with 2K bath; Tolerated well. anxious during treatment. Removed = -2600; Removed 50 min early d/t emergent high K in ICU; LLAVF needles pulled; stasis complete; DSD applied; +bruit +thrill; Report given.
[2018-12-14 18:41] LABS: Bedside Glucose 139 mg/dL (70-110)
== END 2018-12-14 13:35 | disposition home or self-care (01) ==
PROVIDERS: Admitting Provider Internal Medicine; Family Provider Family Medicine; PCP Family Medicine; Visit Provider Internal Medicine
DX: I13.2 Hypertensive heart and chronic kidney disease with heart failure and with stage 5 chronic kidney disease, or end stage renal disease (principal); I50.43 Acute on chronic combined systolic (congestive) and diastolic (congestive) heart failure; N18.6 End stage renal disease; I25.10 Atherosclerotic heart disease of native coronary artery without angina pectoris; E10.22 Type 1 diabetes mellitus with diabetic chronic kidney disease; J96.11 Chronic respiratory failure with hypoxia; J44.9 Chronic obstructive pulmonary disease, unspecified; K31.84 Gastroparesis; G47.33 Obstructive sleep apnea (adult) (pediatric); E78.5 Hyperlipidemia, unspecified; D63.8 Anemia in other chronic diseases classified elsewhere; E10.40 Type 1 diabetes mellitus with diabetic neuropathy, unspecified; E10.43 Type 1 diabetes mellitus with diabetic autonomic (poly)neuropathy; Z99.2 Dependence on renal dialysis; Z95.5 Presence of coronary angioplasty implant and graft; F41.9 Anxiety disorder, unspecified; F32.9 Major depressive disorder, single episode, unspecified; E66.9 Obesity, unspecified; Z68.33 Body mass index [BMI] 33.0-33.9, adult; Z79.899 Other long term (current) drug therapy; Z79.4 Long term (current) use of insulin; Z79.82 Long term (current) use of aspirin; Z79.02 Long term (current) use of antithrombotics/antiplatelets; Z71.3 Dietary counseling and surveillance; Z91.19 Patient's noncompliance with other medical treatment and regimen; F17.210 Nicotine dependence, cigarettes, uncomplicated
CPT/HCPCS: 36415; 80048; 80061; 82962; 83735; 84443; 84484; 85025; 85610; 90937; 93005; 94640; 96372; 96374; 96376; 97802; 99218; 99406; J7030; A4216; G0257; G0378; G0379; J1940

== ENCOUNTER 2018-12-26 09:25 | Emergency (ER) | payer MEDICARE, SELFPAY ==
[2018-12-14 00:49] VITALS: BMI 33.4
[2018-12-26 09:27] VITALS: BP 130/101; PULSE 88; RESP 17; TEMP 36.4; O2SAT 94; BMI 32.3
--- NOTE | 2018-12-26 09:53 | ED.DCSUM_ITS ---
History of Present Illness Chief Complaint: Cellulitis Detail of Chief Complaint: T-max 103.0 ?F Informant: Patient Onset: Days - Patient states she noted rash 3 days ago. Context: Sudden Onset Timing: Continuous Quality: Red rash predominantly right lower extremity below knee Location: Distal right knee Current Severity: Mild Maximum Severity: Moderate Worsened by: Nothing Relieved by: Nothing Associated Symptoms: Shortness of breath and weakness Narrative: Patient is a 42-year-old woman with multiple medical problems who presents with rash lower extremities and swelling. Redness noted on right side. She states the rash on her toes started 3 days ago. The redness has gotten worse. She reports temperature to 103.0 ?F. She denies headache, visual, ocular auditory symptoms. She does report slight shortness of breath. She states she had dialysis today. She denies any redness or swelling of her left upper extremity, location of fistula. She denies nausea, vomiting or diarrhea. She complains of burning pain lower externally's. There is a history of diabetic neuropathy. She states she has not had hair on her toes for some time. She states she has been sitting more than normal. She was unaware that she has multiple bruises. She states she is on Plavix. She denies using any anticoagulant. Prior similar symptoms: No Recent Illness/Hospitalization: No - Past Medical History (1) Anemia, chronic disease Status: Chronic (2) Anxiety Status: Chronic (3) CAD (coronary artery disease) Status: Chronic (4) COPD (chronic obstructive pulmonary disease) Status: Chronic (5) Diabetes mellitus type 1 Status: Chronic (6) ESRD (end stage renal disease) on dialysis Status: Chronic (7) Gastroparesis Status: Chronic (8) Hyperlipidemia Status: Chronic (9) Nonischemic cardiomyopathy Status: Chronic Comment: EF 45% per echo 07/01/2018 (10) GABRIEL (obstructive sleep apnea) Status: Chronic (11) Obesity (BMI 30.0-34.9) Status: Chronic (12) Pilonidal cyst with abscess Status: Chronic Past Medical History - Allergies and Home Meds Allergies/Adverse Reactions: Allergies latex Allergy (Verified 12/07/18 15:34) Rash prochlorperazine [From Compazine] Allergy (Verified 12/07/18 15:34) Unknown levofloxacin [From Levaquin] Adverse Reaction (Verified 12/07/18 15:34) PT CAN'T REMEMBER PT CAN'T REMEMBER metoclopramide HCl [From Reglan] Adverse Reaction (Verified 12/07/18 15:34) Nausea NSAIDS (Non-Steroidal Anti-Inflamma Adverse Reaction (Verified 12/07/18 15:34) kidney function oxycodone HCl [From Percocet] Adverse Reaction (Verified 12/07/18 15:34) HALLUCINATIONS Primary Care Physician: Christopher Foy MD [Primary Care Provider] - 12/27/18 Prior records reviewed: Yes Surgical History: angioplasty, appendectomy, hysterectomy - and BSO, - - c- sections, L breast I+D for abscess, fistula placement LUE, L ankle surgery, appendectomy, PDA repair. Excision pilonidal cyst ulcer about 4 years ago. Colostomy placed due to rectal abscess/wound, patent ductus repair, drug-eluting stent placement left anterior descending coronary artery February 2018. Lives: Alone Smoking Status: Current every day smoker Alcohol: None - Family History Maternal Family History: Family History (Last Updated 12/07/18 @ 15:38 by Pricila Olson) Father Diabetes Mother Kidney disease CVA (cerebral vascular accident) Hypertension Diabetes Cancer Family History: Reports: Cancer, COPD, Diabetes, Hypertension, Renal Disease, Stroke Additional Family History: Father also has diabetes Paternal Family History: Family History (Last Updated 12/07/18 @ 15:38 by Pricila Olson) Father Diabetes Mother Kidney disease CVA (cerebral vascular accident) Hypertension Diabetes Cancer Family History: Reports: Diabetes Sibling Family History: Family History (Last Updated 12/07/18 @ 15:38 by Pricila Olson) Father Diabetes Mother Kidney disease CVA (cerebral vascular accident) Hypertension Diabetes Cancer Family History: Reports: Cancer, Diabetes Review of Systems General: Reports: Chills, Fever, Malaise. Denies: Subjective, Sweats, Weight loss Eyes: Denies: Visual changes - bilaterally, Blurred Vision - bilaterally, Diplopia ENT: Denies: Bilateral ear pain, Rhinorrhea, Sore throat Cardiovascular: Denies: Chest pain, Palpitations Respiratory: Reports: Dyspnea. Denies: Cough, Sputum, Dyspnea on exertion, Orthopnea Gastrointestinal: Denies: Abdominal pain, Nausea, Vomiting, Diarrhea, Melena, Hematochezia Genitourinary: Reports: - - Patient does not make urine Musculoskeletal: Reports: Swelling - Right and left leg and feet, Extremity Pain - Left lower extremity distal knee. Denies: Myalgias, Arthralgias, Neck pain, Back pain Skin: Reports: Rash - Left foot and leg Neurological: Reports: Weakness, Parasthesia, Numbness. Denies: Headache Psych: Reports: Depression Hematologic: Denies: Easy bruising, Easy bleeding Allergy: Denies: Uticaria Physical Exam Vital Signs/Narrative: Vital Signs Temp Pulse Resp BP Pulse Ox 12/26/18 09:27 97.6 F L 88 17 130/101 H 94 Inital Vital Signs reviewed: Yes General: Well nourished, Well developed, Obese, No Acute Distress Head: Normocephalic, Atraumatic Eyes: Perrl, EOMI, Pale conjunctiva. Negative for: Scleral icterus ENT: Moist mucous membranes, No rhinorrhea, TM's clear Neck: Supple, Nontender, No lymphadenopathy, No JVD, - Cardiovascular: Regular rate, Regular rhythm, No murmurs, Normal S1, Normal S2 Respiratory: No distress, CTA bilaterally, Chest nontender Abdomen: Soft, Nontender, Nondistended, Normal bowel sounds, No masses, - - Colostomy noted. There is stool and gas in the colostomy bag. Stool is brown. Back: Nontender, Normal Inspection Extremities: Tenderness, Edema. Negative for: Nontender, No edema Skin: Normal color, Rash - Patient has a raised purpleish rash foot that is nontender. There is also scaling noted. There are small red dots consistent with petechiae left leg., Trauma - Multiple ecchymotic areas right and left lower extremity and left upper extremity. Negative for: Cyanosis, Diaphoresis, Jaundice Neurological: Alert, Oriented x3, Cranial nerves II-XII grossly intact, Normal Strength, Normal Sensation Psychological: Normal affect Diagnostic/Tx/Re-eval Chest X-Ray - ED: 2 View, Read by ED Physician, Chronic Changes, - - There are increased markings at both bases. The film is underpenetrated. The film is rotated. There is no obvious infiltrate. Cardiac silhouette appears normal. Difficult to assess mediastinum because of rotation. No ab normality of the osseous structures. Impressions Chest X-Ray 12/26/18 10:00 IMPRESSION: Cardiomegaly and CHF. Bibasilar atelectasis. Electronically Signed: Josh Hill, at 10:28 EDT , Service support , 12/26/18 10:00 Chest PA and Lateral [RAD] Stat Laboratory Results 12/26/18 12/26/18 12/26/18 10:00 10:00 10:00 WBC 4.6 RBC 2.78 L Hgb 9.4 L Hct 30.7 L MCV 110.4 H MCH 33.8 H MCHC 30.6 L RDW 16.5 H RDW Differential 63.3 H Plt Count 148 L MPV 8.3 Immature Gran % (Auto) 0.600 Neut % (Auto) 74.3 H Lymph % (Auto) 15.9 L [place] % (Auto) 4.5 Eos % (Auto) 4.5 Baso % (Auto) 0.2 Absolute Neuts (auto) 3.4 Absolute Lymphs (auto) 0.74 L Total Counted Not Reportable ESR PT 15.1 H INR 1.2 APTT 28.9 Sodium 142 Potassium 3.5 Chloride 100 Carbon Dioxide 33.0 H Anion Gap 9 BUN 33 H Creatinine 5.24 H Estim Creat Clear Calc 12.83 Est GFR (MDRD) Af Amer 11 L Est GFR (MDRD) Non-Af 9 L BUN/Creatinine Ratio 6.3 L Glucose 250 H Lactic Acid Calcium 8.3 L Total Bilirubin 0.50 AST 16 ALT 31 Alkaline Phosphatase 108 C-React Prot Ext Range Total Protein 7.0 Albumin 2.6 L Globulin 4.4 H Albumin/Globulin Ratio 0.6 L 12/26/18 12/26/18 12/26/18 10:00 11:30 11:30 WBC RBC Hgb Hct MCV MCH MCHC RDW RDW Differential Plt Count MPV Immature Gran % (Auto) Neut % (Auto) Lymph % (Auto) [place] % (Auto) Eos % (Auto) Baso % (Auto) Absolute Neuts (auto) Absolute Lymphs (auto) Total Counted ESR 32 H PT INR APTT Sodium Potassium Chloride Carbon Dioxide Anion Gap BUN Creatinine Estim Creat Clear Calc Est GFR (MDRD) Af Amer Est GFR (MDRD) Non-Af BUN/Creatinine Ratio Glucose Lactic Acid 2.2 H Calcium Total Bilirubin AST ALT Alkaline Phosphatase C-React Prot Ext Range 40.00 H Total Protein Albumin Globulin Albumin/Globulin Ratio - Medical Decision Making With with reported temperature 103.0 ?F and rash will obtain appropriate blood work to assess for infectious etiology. With multiple bruises will obtain PT and PTT to determine if she has an acquired coagulopathy. CBC to assess white count, H&H and platelet count. She is on Plavix. Because she is tachypnic and reports dyspnea chest x-ray was obtained even though her lung exam was unremarkable. Patient's rash is consistent with petechia. There is no evidence of cellulitis. The source of her fever is unknown. ESR and CRP P were obtained. ESR is 40. This is nondiagnostic. CRP is elevated and abnormal. Since patient is not hemodynamically unstable plan is to obtain blood cultures and administer dose of Rocephin. The ER unit secretary was asked to contact Dr. Foy's office/staff to make appointment to be seen tomorrow. Spoke with Dr. Foy's unit secretary. Patient is to call the office for appointment time tomorrow. She will be seen by another practitioner since Dr. Foy is out of the office this week. ED Disposition - Plan for ED Patient: Diagnosis: Fever, unknown origin, Lactic acidosis, Anemia, chronic disease, Diabetes mellitus type 1, HTN (hypertension) Instructions: ED Fever Unconf Cause Referrals: Christopher Foy MD [Primary Care Provider] - 12/27/18 Additional Instructions: Call Dr. Foy's office this afternoon for appointment time to be seen tomorrow by [address] Arnett practitioners.
--- NOTE | 2018-12-26 10:00 | RAD_ITS ---
STUDY: X-RAY CHEST REASON FOR EXAM: Female, 42 years old. Dyspnea. TECHNIQUE: AP and lateral views of the chest. COMPARISON: Comparison is made with prior study dated December 05, 2018. FINDINGS: There is evidence of vascular congestion and CHF. Mild increased markings at the lung bases suggestive of atelectasis with blunting of right costophrenic angle. There is mild cardiac enlargement. Normal mediastinum and latrell. Normal visualized pulmonary arteries. Normal visualized aortic arch and descending thoracic aorta. Normal visualized thoracic spine. Healed left rib fractures. There is no demonstrated abnormality of the visualized soft tissue structures of the upper abdomen. RAD/Chest PA and Lateral IMPRESSION: Cardiomegaly and CHF. Bibasilar atelectasis. Electronically Signed: Josh Hill, at 10:28 EDT , Service support ,
[2018-12-26 10:11] LABS: Absolute Lymphocyte Count 0.74 X10^3/ul (0.83-4.51); Absolute Neutrophil Count 3.4 X10^3/uL (2.0-7.7); Basophil# 0.01 X10^3/uL; Basophil% 0.2 % (0-1); Eosinophil# 0.21 X10^3/uL; Eosinophils% 4.5 % (0-5); Hematocrit 30.7 % (37-47); Hemoglobin 9.4 g/dl (12.0-15.0); Lymphocyte # 0.74 X10^3/ul (4.0); Lymphocyte % 15.9 % (19-41); Mean Corp Hgb Conc 30.6 g/gl (32-36); Mean Corpuscular Hgb 33.8 pg (27.0-32.0); Mean Corpuscular Volume 110.4 fL (81-99); Mean Platelet Vol. 8.3 fl (6.2-12.0); Monocyte# 0.21 X10^3/uL; Monocyte% 4.5 % (0-10); Neutrophil # 3.44 X10^3/uL (2.7-7.7); Neutrophil % 74.3 % (47-70); POSITIVE COUNT NO; POSITIVE DIFFERENTIAL NO; POSITIVE MORPHOLOGY NO; Platelet Count 148 K/mm3 (150-450); RBC Distribution Width CV 16.5 % (11.6-14.6); RBC Distribution Width SD 63.3 fl (35.1-43.9); Red Blood Count 2.78 M/mm3 (4.2-5.4); White Blood Count 4.6 K/mm3 (4.4-11.0)
[2018-12-26 10:26] LABS: International Normalized Ratio 1.2; Prothrombin Time (Protime)PT. 15.1 SECONDS (11.7-14.9)
[2018-12-26 10:27] LABS: Partial Thromboplast Time 28.9 Seconds (24.1-36.2)
[2018-12-26 10:31] LABS: ALB/GLOB Ratio 0.6 RATIO (0.9-2.4); AST(SGOT) 16 U/L (15-37); Alanine Aminotransfer ALT/SGPT 31 U/L (13-56); Albumin, Serum 2.6 g/dL (3.2-5.0); Alkaline Phosphatase 108 U/L (45-117); Anion Gap 9 (5-15); BUN 33 mg/dL (7-18); BUN/Creat Ratio 6.3 RATIO (10-20); Calcium,Total 8.3 mg/dL (8.5-10.1); Chloride 100 mmol/L (98-107); Creatinine, Serum 5.24 mg/dL (0.55-1.02); EST Glomerular Filtration Rate 9 mL/min (>60); Est Glom Filt Rate - Afr Amer 11 mL/min (>60); Estimated Creatinine Clearance 12.83 ml/min; Globulin 4.4 g/dL (2.2-4.2); Glucose 250 mg/dL (74-106); Potassium 3.5 mmol/L (3.5-5.1); Sodium Level 142 mmol/L (136-145)
[2018-12-26 10:52] LABS: Lactic Acid 2.2 mmol/L (0.4-2.0)
[2018-12-26 11:10] VITALS: BP 104/59; PULSE 97; RESP 20; TEMP 36.6; O2SAT 94
--- NOTE | 2018-12-26 11:13 | ED.RN ---
CREATININE NOT CHECKED FOR SEPSIS SCREEN D/T PT ON DIALYSIS AND INCREASED CREATININE IS PT BASELINE.
[2018-12-26 11:48] LABS: Erythrocyte Sedimentation Rate 32 mm/hr (0-20)
[2018-12-26 12:00] VITALS: BP 147/63; PULSE 90; RESP 16; TEMP 36.7; O2SAT 94
[2018-12-26 13:00] VITALS: BP 144/100; PULSE 92; RESP 18; TEMP 36.6; O2SAT 97
[2018-12-26 13:06] VITALS: BP 144/100; PULSE 92; RESP 18; O2SAT 97
[2018-12-26] MEDS: Ceftriaxone 1 GM/50 ML BAG IV (13:29)
[2018-12-26] MEDS: Morphine 4 MG/ML Syringe IV (13:47)
[2018-12-26 14:06] LABS: Reflex Lactate? Y
[2018-12-26 14:30] VITALS: BP 138/96; PULSE 90; RESP 18; O2SAT 97
== END 2018-12-26 14:31 | disposition home or self-care (01) ==
PROVIDERS: Emergency Provider Emergency Medicine; Family Provider Family Medicine; PCP Family Medicine
DX: R50.9 Fever, unspecified (principal); E87.2 Acidosis; E10.22 Type 1 diabetes mellitus with diabetic chronic kidney disease; I13.2 Hypertensive heart and chronic kidney disease with heart failure and with stage 5 chronic kidney disease, or end stage renal disease; I50.9 Heart failure, unspecified; N18.6 End stage renal disease; Z99.2 Dependence on renal dialysis; D63.8 Anemia in other chronic diseases classified elsewhere; F41.9 Anxiety disorder, unspecified; S40.022A Contusion of left upper arm, initial encounter; S80.12XA Contusion of left lower leg, initial encounter; S80.11XA Contusion of right lower leg, initial encounter; X58.XXXA Exposure to other specified factors, initial encounter; Y93.9 Activity, unspecified; Y92.9 Unspecified place or not applicable; I25.10 Atherosclerotic heart disease of native coronary artery without angina pectoris; J44.9 Chronic obstructive pulmonary disease, unspecified; E10.43 Type 1 diabetes mellitus with diabetic autonomic (poly)neuropathy; K31.84 Gastroparesis; E78.5 Hyperlipidemia, unspecified; I42.8 Other cardiomyopathies; G47.33 Obstructive sleep apnea (adult) (pediatric); E66.9 Obesity, unspecified; E10.40 Type 1 diabetes mellitus with diabetic neuropathy, unspecified; F32.9 Major depressive disorder, single episode, unspecified; Z93.3 Colostomy status; Z79.02 Long term (current) use of antithrombotics/antiplatelets; Z79.82 Long term (current) use of aspirin; Z79.4 Long term (current) use of insulin; Z79.899 Other long term (current) drug therapy; F17.200 Nicotine dependence, unspecified, uncomplicated
CPT/HCPCS: 36415; 71046; 80053; 83605; 85025; 85610; 85652; 85730; 86140; 87040; 96365; 96375; 99283; J7050; A4216

== ENCOUNTER 2018-12-31 08:52 | Inpatient (IN) | payer MEDICARE, SELFPAY ==
[2018-12-31] VITALS (13 sets, daily range): BP systolic 99–148; BP diastolic 61–86; PULSE 59–84; RESP 16–20; TEMP 36.1–36.6; O2SAT 95–97; BMI 36.3; BMI 33.7
--- NOTE | 2018-12-31 09:10 | EKG12_ITS ---
Test Reason : REPEAT Blood Pressure : / mmHG Vent. Rate : 079 BPM Atrial Rate : 079 BPM P-R Int : 128 ms QRS Dur : 092 ms QT Int : 410 ms P-R-T Axes : 065 077 212 degrees QTc Int : 470 ms Sinus rhythm with frequent Premature ventricular complexes in a pattern of bigeminy Anterior infarct , age undetermined T wave abnormality, consider inferior ischemia Abnormal ECG Confirmed by DIVINA BEASLEY, SUSI ([id number]), editor magazine LISBETH KIDD ([id number]) on 01/01/2019 8:12:08 AM Referred By: Francois Soler Confirmed By:SUSI MURCIA MD
--- NOTE | 2018-12-31 09:10 | RAD_ITS ---
STUDY: X-RAY CHEST REASON FOR EXAM: Female, 43 years old. Chest pain. TECHNIQUE: Single AP portable view of the chest. COMPARISON: Comparison is made with prior study dated December 26, 2018. FINDINGS: EKG electrodes are seen. Once again, there is evidence of vascular congestion and CHF. This has improved as compared to prior study. Blunting of the right costo phrenic angle. There is moderate cardiac enlargement. Normal mediastinum and latrell. Normal visualized pulmonary arteries. Normal visualized aortic arch and descending thoracic aorta. Normal visualized thoracic spine. Normal visualized ribs, clavicles, and shoulders. There is no demonstrated abnormality of the visualized soft tissue structures of the upper abdomen. RAD/Chest 1 View (Portable) IMPRESSION: Cardiomegaly and CHF. Blunting of the right costophrenic angle. Electronically Signed: Josh Hill, at 10:22 EDT , Service support ,
--- NOTE | 2018-12-31 09:11 | EKG12_ITS ---
Test Reason : CP Blood Pressure : / mmHG Vent. Rate : 088 BPM Atrial Rate : 088 BPM P-R Int : 130 ms QRS Dur : 082 ms QT Int : 422 ms P-R-T Axes : 061 073 209 degrees QTc Int : 510 ms Sinus rhythm with frequent Premature ventricular complexes in a pattern of bigeminy Possible Anterolateral infarct (cited on or before 14-DEC-2018), age undetermined ST & T wave abnormality, consider inferior ischemia Abnormal ECG Confirmed by DIVINA BEASLEY, SUSI ([id number]), newspaper or periodical editor LISBETH KIDD ([id number]) on 01/01/2019 8:12:47 AM Referred By: Francois Soler Confirmed By:SUSI MURCIA MD
--- NOTE | 2018-12-31 09:13 | ED.DCSUM_ITS ---
History of Present Illness Chief Complaint: Chest Pain Informant: Patient Onset: Yesterday Context: Sudden Onset Timing: Continuous Quality: Pressure Location: Central chest Current Severity: Moderate Maximum Severity: Moderate Worsened by: Walking and dialysis Relieved by: Nothing, better after 2 nitro administered by squad Associated Symptoms: Nausea, dyspnea and radiation to right shoulder Narrative: Patient is a middle-aged woman with multiple medical problems including coronary disease. She had a stent placed by Dr. Magdaleno 2 years ago. Based on her description stent was placed in the LAD. She states last evening she developed midsternal chest pressure with nausea shortness of breath and radiation to the right shoulder. She awoke with the same symptoms. During dialysis her chest tightness got worse. She believes they took 2 L off. Will need to contact dialysis. She states she is on Plavix and reason for multiple bruises. Prior similar symptoms: Yes - [place] to discomfort prior to cardiac cath, angioplasty and stent placement Recent Illness/Hospitalization: No - Past Medical History (1) COPD exacerbation Status: Acute (2) Acute on chronic systolic and diastolic heart failure, NYHA class 3 Status: Chronic (3) Anemia, chronic disease Status: Chronic (4) Anxiety Status: Chronic (5) Decubitus ulcer, stage III Status: Chronic (6) Depression Status: Chronic (7) Diabetes mellitus type 1 Status: Chronic (8) Gastroparesis Status: Chronic (9) HTN (hypertension) Status: Chronic (10) Hyperlipidemia Status: Chronic (11) Nonischemic cardiomyopathy Status: Chronic Comment: EF 45% per echo 07/01/2018 (12) GABRIEL (obstructive sleep apnea) Status: Chronic (13) Obesity (BMI 30.0-34.9) Status: Chronic Past Medical History - Allergies and Home Meds Allergies/Adverse Reactions: Allergies latex Allergy (Verified 12/31/18 08:58) Rash prochlorperazine [From Compazine] Allergy (Verified 12/31/18 08:58) Unknown levofloxacin [From Levaquin] Adverse Reaction (Verified 12/31/18 08:58) PT CAN'T REMEMBER PT CAN'T REMEMBER metoclopramide HCl [From Reglan] Adverse Reaction (Verified 12/31/18 08:58) Nausea NSAIDS (Non-Steroidal Anti-Inflamma Adverse Reaction (Verified 12/31/18 08:58) kidney function oxycodone HCl [From Percocet] Adverse Reaction (Verified 12/31/18 08:58) HALLUCINATIONS Primary Care Physician: Christopher Foy MD [Primary Care Provider] - Surgical History: angioplasty, appendectomy, hysterectomy - and BSO, - - c- sections, L breast I+D for abscess, fistula placement LUE, L ankle surgery, appendectomy, PDA repair. Excision pilonidal cyst ulcer about 4 years ago. Colostomy placed due to rectal abscess/wound, patent ductus repair, drug-eluting stent placement left anterior descending coronary artery February 2018. Lives: Alone Smoking Status: Current every day smoker Alcohol: None - Family History Maternal Family History: Family History (Last Updated 12/07/18 @ 15:38 by Pricila Olson) Father Diabetes Mother Kidney disease CVA (cerebral vascular accident) Hypertension Diabetes Cancer Family History: Reports: Cancer, COPD, Diabetes, Hypertension, Renal Disease, Stroke Additional Family History: Father also has diabetes Paternal Family History: Family History (Last Updated 12/07/18 @ 15:38 by Pricila Olson) Father Diabetes Mother Kidney disease CVA (cerebral vascular accident) Hypertension Diabetes Cancer Family History: Reports: Diabetes Sibling Family History: Family History (Last Updated 12/07/18 @ 15:38 by Pricila Olson) Father Diabetes Mother Kidney disease CVA (cerebral vascular accident) Hypertension Diabetes Cancer Family History: Reports: Cancer, Diabetes Review of Systems General: Denies: Chills, Fever, Sweats Eyes: Denies: Visual changes - bilaterally, Diplopia ENT: Denies: Rhinorrhea, Sore throat Cardiovascular: Reports: Chest pain. Denies: Palpitations, Heart racing Respiratory: Reports: Dyspnea, Dyspnea on exertion. Denies: Cough, Sputum Gastrointestinal: Denies: Abdominal pain, Nausea, Vomiting, Diarrhea, Melena, Hematochezia Genitourinary: Denies: Dysuria, Hematuria, Frequency Musculoskeletal: Denies: Myalgias, Arthralgias, Neck pain, Back pain, Extremity Pain Skin: Denies: Rash, Wounds Neurological: Denies: Headache, Weakness, Numbness Endocrine: Denies: Polyuria, Polydipsia Hematologic: Reports: Easy bruising, Easy bleeding Physical Exam Vital Signs/Narrative: Vital Signs Temp Pulse Resp BP Pulse Ox 12/31/18 08:53 97 F L 59 L 20 H 123/69 H 95 Inital Vital Signs reviewed: Yes General: Well nourished, Well developed, Obese, No Acute Distress Head: Normocephalic, Atraumatic Eyes: Perrl, EOMI, Pale conjunctiva. Negative for: Scleral icterus ENT: Moist mucous membranes, No rhinorrhea Neck: Supple, Nontender, No lymphadenopathy, No JVD, - Cardiovascular: Regular rate, No murmurs, Normal S1, Normal S2, Irregular Respiratory: No distress, CTA bilaterally, Chest nontender Abdomen: Soft, Nontender, Nondistended, Normal bowel sounds, - - Colostomy noted. Patient had colostomy to facilitate healing of sacral decubitus. Back: Nontender, Normal Inspection Extremities: Nontender, No edema Skin: No rash, Pallor, Trauma. Negative for: Normal color, Cyanosis, Diaphoresis, Jaundice Neurological: Alert, Oriented x3, Cranial nerves II-XII grossly intact, Normal Strength, Normal Sensation Psychological: Depressed Diagnostic/Tx/Re-eval Chest X-Ray - ED: 1 View, Read by ED Physician, Cardiomegaly, CHF - This may represent CHF versus fluid overload state since she is a dialysis patient and uncertain how much she had taken off. Impressions Chest X-Ray 12/31/18 09:10 IMPRESSION: Cardiomegaly and CHF. Blunting of the right costophrenic angle. Electronically Signed: Josh Hill, at 10:22 EDT , Service support , 12/31/18 09:10 Chest 1 View (Portable) [RAD] Stat Laboratory Results 12/31/18 12/31/18 09:35 09:35 WBC 3.8 L RBC 2.64 L Hgb 8.9 L Hct 28.6 L MCV 108.3 H MCH 33.7 H MCHC 31.1 L RDW 16.7 H RDW Differential 64.6 H Plt Count 70 L MPV 8.8 Immature Gran % (Auto) 0.300 Neut % (Auto) 75.4 H Lymph % (Auto) 18.2 L [place] % (Auto) 4.7 Eos % (Auto) 1.1 Baso % (Auto) 0.3 Absolute Neuts (auto) 2.9 Absolute Lymphs (auto) 0.69 L Total Counted Not Reportable Sodium 137 Potassium 4.2 Chloride 97 L Carbon Dioxide 33.0 H Anion Gap 7 BUN 32 H Creatinine 5.44 H Estim Creat Clear Calc 12.23 Est GFR (MDRD) Af Amer 11 L Est GFR (MDRD) Non-Af 9 L BUN/Creatinine Ratio 5.9 L Glucose 246 H Calcium 8.2 L Troponin I 0.131 H - EKG Initial EKG Interpretation: Sinus Rhythm - Trickle rate is 88. There are frequent and consistent with bigeminal pattern. Significant artifact. Prolonged QT. DC interval is 130 ms. QRS duration is 82 ms. Follow-up EKG Interpretation: Sinus Rhythm - Trickle rate 81. Premature ventricular complexes noted. Nonspecific anterolateral changes noted. Will need prior for comparison. QT is still prolonged. DC interval is 128 ms. Cures duration is 94 ms. [place] is normal. - Medical Decision Making Patient is hypotensive. This may be secondary to cardiac ischemia versus nitro versus other causes. This could be secondary to the amount of fluid that was removed during dialysis. Cardiac work-up was initiated. Doubt GI bleed since patient does not have hematemesis and stool in colostomy bag is brown. Since patient reports chest pressure with radiation to right shoulder and similar to prior concern this is cardiac. The likelihood ratio for cardiac is 3 times greater since pain is referred to the right shoulder. Went to assess patient at 1040. Patient's on her side appears uncomfortable with a blood pressure of 62/42. Monitor reveals a slow rhythm and ST segments appear to be different. EKG #3 was ordered. Hospitalist been paged for admission. Dr. Tompkins was paged covering for Dr. Magdaleno. He apparently is in the [facility] performing procedure. Information was relayed to the manager cath lab nurse. Chest x-ray was cardiomegaly and cardiac ischemia versus fluid overloaded state since she does have history of renal failure on hemodialysis and hemodialysis was not completed today. She did receive a fluid bolus for her multiple low blood pressure readings. - Critical Care Time Critical care time (excluding procedures): 30-74 minutes - 32 minutes, Discussing w/Patient &/or Family/Assurance Manager Insurance, Discussing w/Consultants, Arranging Admission or Transfer, Performing Direct Patient Care at Bedside ED Disposition - Plan for ED Patient: Disposition: Acute Care Hospital [facility] Diagnosis: Chest pain, Hypotension, Congestive heart failure (CHF), End-stage renal disease on hemodialysis, Elevated troponin I level, Anemia due to chronic kidney disease Referrals: Christopher Foy MD [Primary Care Provider] -
[2018-12-31 09:53] LABS: Absolute Lymphocyte Count 0.69 X10^3/ul (0.83-4.51); Absolute Neutrophil Count 2.9 X10^3/uL (2.0-7.7); Basophil# 0.01 X10^3/uL; Basophil% 0.3 % (0-1); Eosinophil# 0.04 X10^3/uL; Eosinophils% 1.1 % (0-5); Hematocrit 28.6 % (37-47); Hemoglobin 8.9 g/dl (12.0-15.0); Lymphocyte # 0.69 X10^3/ul (4.0); Lymphocyte % 18.2 % (19-41); Mean Corp Hgb Conc 31.1 g/gl (32-36); Mean Corpuscular Hgb 33.7 pg (27.0-32.0); Mean Corpuscular Volume 108.3 fL (81-99); Mean Platelet Vol. 8.8 fl (6.2-12.0); Monocyte# 0.18 X10^3/uL; Monocyte% 4.7 % (0-10); Neutrophil # 2.87 X10^3/uL (2.7-7.7); Neutrophil % 75.4 % (47-70); POSITIVE COUNT NO; POSITIVE DIFFERENTIAL NO; POSITIVE MORPHOLOGY NO; Platelet Count 70 K/mm3 (150-450); RBC Distribution Width CV 16.7 % (11.6-14.6); RBC Distribution Width SD 64.6 fl (35.1-43.9); Red Blood Count 2.64 M/mm3 (4.2-5.4); White Blood Count 3.8 K/mm3 (4.4-11.0)
[2018-12-31 10:04] LABS: Anion Gap 7 (5-15); BUN 32 mg/dL (7-18); BUN/Creat Ratio 5.9 RATIO (10-20); Calcium,Total 8.2 mg/dL (8.5-10.1); Chloride 97 mmol/L (98-107); Creatinine, Serum 5.44 mg/dL (0.55-1.02); EST Glomerular Filtration Rate 9 mL/min (>60); Est Glom Filt Rate - Afr Amer 11 mL/min (>60); Estimated Creatinine Clearance 12.23 ml/min; Glucose 246 mg/dL (74-106); Potassium 4.2 mmol/L (3.5-5.1); Sodium Level 137 mmol/L (136-145)
--- NOTE | 2018-12-31 10:40 | EKG12_ITS ---
Test Reason : REPEAT Blood Pressure : / mmHG Vent. Rate : 081 BPM Atrial Rate : 081 BPM P-R Int : 128 ms QRS Dur : 094 ms QT Int : 438 ms P-R-T Axes : 056 068 202 degrees QTc Int : 508 ms Sinus rhythm with frequent Premature ventricular complexes Possible Anterolateral infarct , age undetermined T wave abnormality, consider inferior ischemia Prolonged QT Abnormal ECG Confirmed by DIVINA BEASLEY, SUSI ([id number]), brands editor LISBETH KIDD ([id number]) on 01/01/2019 8:13:07 AM Referred By: Francois Soler Confirmed By:SUSI MURCIA MD
--- NOTE | 2018-12-31 10:52 | NURSING ---
DR MURCIA AND HOSPITALIST PAGED
--- NOTE | 2018-12-31 11:04 | NURSING ---
DR TONY FOR DR HELTON
--- NOTE | 2018-12-31 11:10 | NURSING ---
106 CP, ELEVATED TROP, HYPOTENSION, CHF ASHELFAH
--- NOTE | 2018-12-31 11:38 | PCM.HP.STD ---
Problem List (1) Chest pain Status: Acute (2) COPD (chronic obstructive pulmonary disease) Status: Chronic (3) Hypotension Status: Acute (4) Anemia due to chronic kidney disease Status: Chronic (5) CAD (coronary artery disease) Status: Chronic Qualifiers: (6) ESRD (end stage renal disease) on dialysis Status: Chronic (7) Depression Status: Chronic Qualifiers: (8) Anxiety Status: Chronic (9) HTN (hypertension) Status: Chronic Qualifiers: (10) Nonischemic cardiomyopathy Status: Chronic Comment: EF 45% per echo 07/01/2018 (11) Diabetes mellitus type 1 Status: Chronic (12) Gastroparesis Status: Chronic History of Present Illness Date of Admission: 12/31/18 Chief Complaint: Chest pain. The patient is a 43 year old F with multiple medical comorbidities as mentioned above presented to the emergency room because of chest pain. Her symptoms started last night around midnight with central chest pain, retrosternal, dull aching pain, 7 out of 10 in severity, radiates to her right shoulder, associated with shortness of breath and dizziness as well as nausea and without aggravating or relieving factors. She mentioned that this pain lasted for about 5 to 6 minutes last night. This morning, she went to dialysis and around mid of her treatment, she started complaining of similar chest pain and she was brought to the emergency department by the squad. In the emergency department, patient was hypotensive, blood pressure was as down as 60 systolic which improved with IV fluid bolus. She is afebrile, heart rate has been stable, pulse ox was 95% on 3 L. Her routine blood work was remarkable for chronic anemia, chronic thrombocytopenia, BUN of 32, creatinine of 5.44. Her EKG revealed normal sinus rhythm with T wave inversion in lateral chest leads which is a new finding. Troponin is 0.131 but this has been chronically elevated. Chest x-ray revealed cardiomegaly and probable bilateral basal pulmonary vascular congestion but compared to previous chest x-rays, it has been the same without any acute or new changes. She is being admitted for chest pain for evaluation as well as hypotension. Past Medical History Past Medical History (Chronic Problems): Chronic Problems (Last Updated 12/31/18 @ 11:32 by Francois Soler MD) COPD (chronic obstructive pulmonary disease) (Chronic) Elevated troponin I level (Chronic) Anemia due to chronic kidney disease (Chronic) CAD (coronary artery disease) (Chronic) Stented coronary artery (Chronic 02/26/18) FFR of LAD 0.82; VIKY of mid LAD with 2.5 X 24 mm Promus Synergy, OM <50% stenosis per Dr. Magdaleno @ [facility] ESRD (end stage renal disease) on dialysis (Chronic) Decubitus ulcer, stage III (Chronic) Anemia, chronic disease (Chronic) GABRIEL (obstructive sleep apnea) (Chronic) Depression (Chronic) Anxiety (Chronic) HTN (hypertension) (Chronic) Nonischemic cardiomyopathy (Chronic) EF 45% per echo 07/01/2018 S/P repair of PDA (patent ductus arteriosus) (Chronic) At young age Diabetes mellitus type 1 (Chronic) Hyperlipidemia (Chronic) Obesity (BMI 30.0-34.9) (Chronic) Gastroparesis (Chronic) Medical History: Medical History (Last Updated 12/31/18 @ 11:32 by Francois Soler MD) ESRD (end stage renal disease) on dialysis (Chronic) N18.6, Z99.2 Decubitus ulcer, stage III (Chronic) L89.93 Anemia, chronic disease (Chronic) D63.8 GABRIEL (obstructive sleep apnea) (Chronic) G47.33 HTN (hypertension) (Chronic) I10 Nonischemic cardiomyopathy (Chronic) I42.8 EF 45% per echo 07/01/2018 Diabetes mellitus type 1 (Chronic) Hyperlipidemia (Chronic) E78.5 Obesity (BMI 30.0-34.9) (Chronic) E66.9 Gastroparesis (Chronic) K31.84 Allergies latex Allergy (Verified 12/31/18 08:58) Rash prochlorperazine [From Compazine] Allergy (Verified 12/31/18 08:58) Unknown levofloxacin [From Levaquin] Adverse Reaction (Verified 12/31/18 08:58) PT CAN'T REMEMBER PT CAN'T REMEMBER metoclopramide HCl [From Reglan] Adverse Reaction (Verified 12/31/18 08:58) Nausea NSAIDS (Non-Steroidal Anti-Inflamma Adverse Reaction (Verified 12/31/18 08:58) kidney function oxycodone HCl [From Percocet] Adverse Reaction (Verified 12/31/18 08:58) HALLUCINATIONS Home Medications: Ambulatory Orders Medication Instructions Recorded Aspirin [Aspirin, Baby] 81 mg PO DAILY@0800 01/26/16 Calcium Acetate [Phoslo Gel Cap] 1,334 mg PO TIDCM 01/26/16 Ergocalciferol [Vitamin D] 50,000 unit PO MO 01/26/16 Insulin Aspart [Novolog Flexpen] 10 units SC TIDCM 01/26/16 Insulin Glargine,Hum.rec.anlog 5 unit SQ QHS 01/09/17 [Lantus] proMETHazine tablet [Phenergan 25 mg PO Q6H PRN PRN #10 tab 03/06/17 tablet] Lisinopril 20 mg PO DAILY 03/29/17 Sodium Bicarbonate 650 mg PO 4X/DAY 03/29/17 Atorvastatin Calcium [Lipitor] 20 mg PO QHS 05/26/18 Carvedilol [Coreg] 25 mg PO BID 05/26/18 Loperamide HCl [Imodium A-D] 2 mg PO TID PRN 05/26/18 Pantoprazole Sodium [Protonix] 20 mg PO BID 05/26/18 Clopidogrel Bisulfate [Plavix] 75 mg PO DAILY 07/01/18 ALPRAZolam [Xanax] 0.5 mg PO MOWEFR PRN 08/09/18 B Complex W-C No.20/Folic Acid 1 mg PO DAILY 08/09/18 [Nephrocaps Softgel] Fluoxetine HCl 40 mg PO DAILY 08/09/18 Lidocaine/Prilocaine HCl [Emla 1 applicatio TOPICAL MOWEFR 10/01/18 Cream W/Tegaderm] Nystatin Powder [Mycostatin Powder] 1 applic TOPICAL BID PRN 10/14/18 hydrOXYzine tablet [Atarax tablet] 10 mg PO MOWEFR 11/06/18 Isosorbide Mononitrate [Imdur] 60 mg PO BID 12/14/18 Melatonin 10 mg PO QHS PRN 12/14/18 Sodium Chloride 0.65% [Callahan Nasal 2 spray NASAL TID PRN PRN 12/14/18 [place]] spray.btl Surgical History: Surgical History (Last Reviewed 12/07/18 @ 15:33 by Pricila Olson) Stented coronary artery (Chronic) Onset Date: 02/26/18 Z95.5 FFR of LAD 0.82; VIKY of mid LAD with 2.5 X 24 mm Promus Synergy, OM <50% stenosis per Dr. Magdaleno @ [facility] S/P repair of PDA (patent ductus arteriosus) (Chronic) Z98.890, Z87.74 At young age Surgical History: angioplasty, appendectomy, hysterectomy - and BSO, - - c-sections, L breast I+D for abscess, fistula placement LUE, L ankle surgery, appendectomy, PDA repair. Excision pilonidal cyst ulcer about 4 years ago. Colostomy placed due to rectal abscess/wound, patent ductus repair, drug-eluting stent placement left anterior descending coronary artery February 2018. Psychiatric History: Anxiety, Depression [employer] History: No pertinent [employer] history Lives: Alone Smoking Status: Current every day smoker Tobacco Use: Cigarettes Alcohol: None Drugs: None - *Family History Maternal Family History: Family History (Last Updated 12/07/18 @ 15:38 by Pricila Olson) Father Diabetes Mother Kidney disease CVA (cerebral vascular accident) Hypertension Diabetes Cancer History Items: Cancer, COPD, Diabetes, Hypertension, Renal Disease, Stroke Paternal Family History: Family History (Last Updated 12/07/18 @ 15:38 by Pricila Olson) Father Diabetes Mother Kidney disease CVA (cerebral vascular accident) Hypertension Diabetes Cancer History Items: Diabetes Sibling Family History: Family History (Last Updated 12/07/18 @ 15:38 by Pricila Olson) Father Diabetes Mother Kidney disease CVA (cerebral vascular accident) Hypertension Diabetes Cancer History Items: Cancer, Diabetes Review of Systems Constitutional: Reports: Weakness. Denies: Anorexia, Chills, Fever Eyes: Denies: Blurred vision, Double vision, Drainage, Redness HEENT: Denies: Difficulty Hearing, Ear Pain, Eye Pain, Nasal Congestion, Sore Throat Cardiovascular: Reports: Chest Pain, Light Headedness. Denies: Chest Tightness, Edema, Orthopnea, Palpitations, Paroxysmal Noc. Dyspnea, Syncope Respiratory: Reports: Shortness of Breath, Shortness of breath at rest. Denies: Cough, Pleuritic Pain, Sputum production, Wheezing Gastrointestinal: Reports: Nausea. Denies: Abdominal Pain, Constipation, Diarrhea, Vomiting Genitourinary: Denies: Dysuria, Frequency, Hematuria Musculoskeletal: Denies: Arm Pain, Back Pain, Foot Pain Skin: Denies: Dryness, Rash Neurological: Denies: Balance problems, Blurred vision, Double vision, Change in Speech, Slurred speech, Focal weakness, Headaches Psychiatric: Reports: Anxiety, Depression Endocrine: Denies: Change in Body Habitus, Polydipsia VTE Information - Inpt Only VTE Present on Admission: No VTE Mechan Device Prophylaxis: None VTE Pharm Prophylaxis ordered?: Yes Patient Problems: Active and Suspected Problems (Last Updated 12/31/18 @ 11:32 by Francois Soler MD) Chest pain (Acute) Hypotension (Acute) - Physical Exam General: Alert, Oriented x3, Cooperative, No apparent distress HEENT: Atraumatic, PERRLA, EOMI, Normocephalic Oral: Moist Mucosa, No Gingival or Mucosal Lesions/ Ulcerations Neck: Supple, No JVD, Negative Carotid Bruits, Trachea Midline, Thyroid Normal Size and Texture Lungs: Clear to auscultation, No rhonchi, No wheeze, Diminished, - - Right basilar faint crackles. Cardiovascular: Regular rate, Regular Rhythm, Normal S1, Normal S2, PMI Normal Abdomen: Bowel Sounds Present, Soft, Non Tender, Non-Distended, No Hepato-splenomegaly, Obese, - - Colostomy bag in place. Extremities: No clubbing, No cyanosis, Edema - + Edema on the left leg. Skin: No rashes, No breakdown Lymphatic: No Cervical, Supraclavicular, or Inguinal Adenopathy Neurological: Cranial nerves II-XII grossly intact, Motor Exam 5/5 strength throughout Psych/Mental Status: Normal Affect, Appropriate, Alert and oriented to time, place, person, mood and affect Vital Signs Temp Pulse Resp BP Pulse Ox 97 F L 73 20 H 106/83 H 96 12/31/18 08:53 12/31/18 11:23 12/31/18 11:23 12/31/18 11:23 12/31/18 11:23 Oxygen Flow Rate (L/min) 3 Oxygen Delivery Method Nasal Cannula Weight: 224 lb 13.944 oz Body Mass Index (BMI) 36.3 Finger Stick Blood Glucose 118 Laboratory Tests Past 24 Hrs 12/31/18 12/31/18 09:35 09:35 WBC 3.8 L RBC 2.64 L Hgb 8.9 L Hct 28.6 L MCV 108.3 H MCH 33.7 H MCHC 31.1 L RDW 16.7 H RDW Differential 64.6 H Plt Count 70 L MPV 8.8 Immature Gran % (Auto) 0.300 Neut % (Auto) 75.4 H Lymph % (Auto) 18.2 L Knox % (Auto) 4.7 Eos % (Auto) 1.1 Baso % (Auto) 0.3 Absolute Neuts (auto) 2.9 Absolute Lymphs (auto) 0.69 L Total Counted Not Reportable Sodium 137 Potassium 4.2 Chloride 97 L Carbon Dioxide 33.0 H Anion Gap 7 BUN 32 H Creatinine 5.44 H Estim Creat Clear Calc 12.23 Est GFR (MDRD) Af Amer 11 L Est GFR (MDRD) Non-Af 9 L BUN/Creatinine Ratio 5.9 L Glucose 246 H Calcium 8.2 L Troponin I 0.131 H Clinical Impression(s) from Imaging Studies Chest X-Ray 12/31/18 09:10 IMPRESSION: Cardiomegaly and CHF. Blunting of the right costophrenic angle. Electronically Signed: Josh Hill, at 10:22 EDT , Service support , Assessment/Plan All Active Problems (Last Updated 12/31/18 @ 11:32 by Francois Soler MD) Chest pain (Acute) Hypotension (Acute) This is a 43 years old female patient presented to the emergency room because of chest pain, found to have hypotension and she is being admitted for evaluation. #1 chest pain/EKG changes: In context of history of CAD status post stents. EKG reviewed, revealed T wave inversion in lateral chest leads, this is new finding. Troponin is chronically elevated. She had nuclear stress test that was done on September, that revealed evidence of previous extensive anterior and apical as well as inferior apical infarct, ischemic cardiomyopathy without evidence of acute ischemia. Plan: Admit to PCU, cardiac monitoring, serial cardiac enzymes, repeat EKG tomorrow morning, nitroglycerin PRN for chest pain, cardiology consult, close monitoring of blood pressure, continue aspirin, statins, Coreg, will check LFT and lipase, PT OT evaluation and treatment. At this time, I doubt acute CHF. #2 hypotension: Patient mentioned that his blood pressure goes down usually with dialysis and after dialysis. Her blood pressure improved with IV fluid bolus. Plan: Close monitoring of blood pressure, hold lisinopril and nitrates, continue Coreg. #3 CAD status post stents: Plan as above, continue aspirin, statins, Coreg, hold lisinopril and nitrates because of hypotension. #4 ESRD on hemodialysis: Patient received hemodialysis today, not completed. Potassium is normal. Plan: Nephrology consult, continue scheduled hemodialysis, continue sodium bicarb, continue PhosLo gel. No indication for urgent dialysis. #5 type 1 diabetes mellitus: ADA diet, Accu-Cheks, insulin scale, continue home doses of NovoLog 3 times daily and Lantus nightly. #6 hyperlipidemia: Continue statins. #7 anxiety/depression: Continue Xanax and melatonin. #8 chronic anemia: Likely due to anemia of chronic disease secondary to chronic renal failure. Hemoglobin and hematocrit are stable at baseline. #9 COPD/chronic respiratory failure: On home oxygen at 3 L. At this time, pulse ox is 95% on 2 L. Plan: DuoNeb every 6 hours, albuterol as needed, continue oxygen by nasal cannula to keep O2 saturation more than 92%. #10 DVT prophylaxis: Subcu heparin. This note was generated with [employer] dictation software. It may contain incorrect words, spelling, and punctuation that were not noted in checking the note before signing. Code Visit Inpatient E&M: 53090 Init Hosp L3
--- NOTE | 2018-12-31 11:47 | HP.PCM_ITS ---
Problem List (1) Chest pain Status: Acute (2) COPD (chronic obstructive pulmonary disease) Status: Chronic (3) Hypotension Status: Acute (4) Anemia due to chronic kidney disease Status: Chronic (5) CAD (coronary artery disease) Status: Chronic Qualifiers: (6) ESRD (end stage renal disease) on dialysis Status: Chronic (7) Depression Status: Chronic Qualifiers: (8) Anxiety Status: Chronic (9) HTN (hypertension) Status: Chronic Qualifiers: (10) Nonischemic cardiomyopathy Status: Chronic Comment: EF 45% per echo 07/01/2018 (11) Diabetes mellitus type 1 Status: Chronic (12) Gastroparesis Status: Chronic History of Present Illness Date of Admission: 12/31/18 Chief Complaint: Chest pain. The patient is a 43 year old F with multiple medical comorbidities as mentioned above presented to the emergency room because of chest pain. Her symptoms started last night around midnight with central chest pain, retrosternal, dull aching pain, 7 out of 10 in severity, radiates to her right shoulder, associated with shortness of breath and dizziness as well as nausea and without aggravating or relieving factors. She mentioned that this pain lasted for about 5 to 6 minutes last night. This morning, she went to dialysis and around mid of her treatment, she started complaining of similar chest pain and she was brought to the emergency department by the squad. In the emergency department, patient was hypotensive, blood pressure was as down as 60 systolic which improved with IV fluid bolus. She is afebrile, heart rate has been stable, pulse ox was 95% on 3 L. Her routine blood work was remarkable for chronic anemia, chronic thrombocytopenia, BUN of 32, creatinine of 5.44. Her EKG revealed normal sinus rhythm with T wave inversion in lateral chest leads which is a new finding. Troponin is 0.131 but this has been chronically elevated. Chest x-ray revealed cardiomegaly and probable bilateral basal pulmonary vascular congestion but compared to previous chest x-rays, it has been the same without any acute or new changes. She is being admitted for chest pain for evaluation as well as hypotension. Past Medical History Past Medical History (Chronic Problems): Chronic Problems (Last Updated 12/31/18 @ 11:32 by Francois Soler MD) COPD (chronic obstructive pulmonary disease) (Chronic) Elevated troponin I level (Chronic) Anemia due to chronic kidney disease (Chronic) CAD (coronary artery disease) (Chronic) Stented coronary artery (Chronic 02/26/18) FFR of LAD 0.82; VIKY of mid LAD with 2.5 X 24 mm Promus Synergy, OM <50% stenosis per Dr. Magdaleno @ [facility] ESRD (end stage renal disease) on dialysis (Chronic) Decubitus ulcer, stage III (Chronic) Anemia, chronic disease (Chronic) GABRIEL (obstructive sleep apnea) (Chronic) Depression (Chronic) Anxiety (Chronic) HTN (hypertension) (Chronic) Nonischemic cardiomyopathy (Chronic) EF 45% per echo 07/01/2018 S/P repair of PDA (patent ductus arteriosus) (Chronic) At young age Diabetes mellitus type 1 (Chronic) Hyperlipidemia (Chronic) Obesity (BMI 30.0-34.9) (Chronic) Gastroparesis (Chronic) Medical History: Medical History (Last Updated 12/31/18 @ 11:32 by Francois Soler MD) ESRD (end stage renal disease) on dialysis (Chronic) N18.6, Z99.2 Decubitus ulcer, stage III (Chronic) L89.93 Anemia, chronic disease (Chronic) D63.8 GABRIEL (obstructive sleep apnea) (Chronic) G47.33 HTN (hypertension) (Chronic) I10 Nonischemic cardiomyopathy (Chronic) I42.8 EF 45% per echo 07/01/2018 Diabetes mellitus type 1 (Chronic) Hyperlipidemia (Chronic) E78.5 Obesity (BMI 30.0-34.9) (Chronic) E66.9 Gastroparesis (Chronic) K31.84 Allergies latex Allergy (Verified 12/31/18 08:58) Rash prochlorperazine [From Compazine] Allergy (Verified 12/31/18 08:58) Unknown levofloxacin [From Levaquin] Adverse Reaction (Verified 12/31/18 08:58) PT CAN'T REMEMBER PT CAN'T REMEMBER metoclopramide HCl [From Reglan] Adverse Reaction (Verified 12/31/18 08:58) Nausea NSAIDS (Non-Steroidal Anti-Inflamma Adverse Reaction (Verified 12/31/18 08:58) kidney function oxycodone HCl [From Percocet] Adverse Reaction (Verified 12/31/18 08:58) HALLUCINATIONS Home Medications: Ambulatory Orders Medication Instructions Recorded Aspirin [Aspirin, Baby] 81 mg PO DAILY@0800 01/26/16 Calcium Acetate [Phoslo Gel Cap] 1,334 mg PO TIDCM 01/26/16 Ergocalciferol [Vitamin D] 50,000 unit PO MO 01/26/16 Insulin Aspart [Novolog Flexpen] 10 units SC TIDCM 01/26/16 Insulin Glargine,Hum.rec.anlog 5 unit SQ QHS 01/09/17 [Lantus] proMETHazine tablet [Phenergan 25 mg PO Q6H PRN PRN #10 tab 03/06/17 tablet] Lisinopril 20 mg PO DAILY 03/29/17 Sodium Bicarbonate 650 mg PO 4X/DAY 03/29/17 Atorvastatin Calcium [Lipitor] 20 mg PO QHS 05/26/18 Carvedilol [Coreg] 25 mg PO BID 05/26/18 Loperamide HCl [Imodium A-D] 2 mg PO TID PRN 05/26/18 Pantoprazole Sodium [Protonix] 20 mg PO BID 05/26/18 Clopidogrel Bisulfate [Plavix] 75 mg PO DAILY 07/01/18 ALPRAZolam [Xanax] 0.5 mg PO MOWEFR PRN 08/09/18 B Complex W-C No.20/Folic Acid 1 mg PO DAILY 08/09/18 [Nephrocaps Softgel] Fluoxetine HCl 40 mg PO DAILY 08/09/18 Lidocaine/Prilocaine HCl [Emla 1 applicatio TOPICAL MOWEFR 10/01/18 Cream W/Tegaderm] Nystatin Powder [Mycostatin Powder] 1 applic TOPICAL BID PRN 10/14/18 hydrOXYzine tablet [Atarax tablet] 10 mg PO MOWEFR 11/06/18 Isosorbide Mononitrate [Imdur] 60 mg PO BID 12/14/18 Melatonin 10 mg PO QHS PRN 12/14/18 Sodium Chloride 0.65% [[place] Nasal 2 spray NASAL TID PRN PRN 12/14/18 [place]] spray.btl Surgical History: Surgical History (Last Reviewed 12/07/18 @ 15:33 by Pricila Olson) Stented coronary artery (Chronic) Onset Date: 02/26/18 Z95.5 FFR of LAD 0.82; VIKY of mid LAD with 2.5 X 24 mm Promus Synergy, OM <50% st enosis per Dr. Magdaleno @ [facility] S/P repair of PDA (patent ductus arteriosus) (Chronic) Z98.890, Z87.74 At young age Surgical History: angioplasty, appendectomy, hysterectomy - and BSO, - - c- sections, L breast I+D for abscess, fistula placement LUE, L ankle surgery, appendectomy, PDA repair. Excision pilonidal cyst ulcer about 4 years ago. Colostomy placed due to rectal abscess/wound, patent ductus repair, drug-eluting stent placement left anterior descending coronary artery February 2018. Psychiatric History: Anxiety, Depression MORPHOLOGIST History: No pertinent MORPHOLOGIST history Lives: Alone Smoking Status: Current every day smoker Tobacco Use: Cigarettes Alcohol: None Drugs: None - *Family History Maternal Family History: Family History (Last Updated 12/07/18 @ 15:38 by Pricila Olson) Father Diabetes Mother Kidney disease CVA (cerebral vascular accident) Hypertension Diabetes Cancer History Items: Cancer, COPD, Diabetes, Hypertension, Renal Disease, Stroke Paternal Family History: Family History (Last Updated 12/07/18 @ 15:38 by Pricila Olson) Father Diabetes Mother Kidney disease CVA (cerebral vascular accident) Hypertension Diabetes Cancer History Items: Diabetes Sibling Family History: Family History (Last Updated 12/07/18 @ 15:38 by Pricila Olson) Father Diabetes Mother Kidney disease CVA (cerebral vascular accident) Hypertension Diabetes Cancer History Items: Cancer, Diabetes Review of Systems Constitutional: Reports: Weakness. Denies: Anorexia, Chills, Fever Eyes: Denies: Blurred vision, Double vision, Drainage, Redness HEENT: Denies: Difficulty Hearing, Ear Pain, Eye Pain, Nasal Congestion, Sore Throat Cardiovascular: Reports: Chest Pain, Light Headedness. Denies: Chest Tightness, Edema, Orthopnea, Palpitations, Paroxysmal Noc. Dyspnea, Syncope Respiratory: Reports: Shortness of Breath, Shortness of breath at rest. Denies: Cough, Pleuritic Pain, Sputum production, Wheezing Gastrointestinal: Reports: Nausea. Denies: Abdominal Pain, Constipation, Diarrhea, Vomiting Genitourinary: Denies: Dysuria, Frequency, Hematuria Musculoskeletal: Denies: Arm Pain, Back Pain, Foot Pain Skin: Denies: Dryness, Rash Neurological: Denies: Balance problems, Blurred vision, Double vision, Change in Speech, Slurred speech, Focal weakness, Headaches Psychiatric: Reports: Anxiety, Depression Endocrine: Denies: Change in Body Habitus, Polydipsia VTE Information - Inpt Only VTE Present on Admission: No VTE Mechan Device Prophylaxis: None VTE Pharm Prophylaxis ordered?: Yes Patient Problems: Active and Suspected Problems (Last Updated 12/31/18 @ 11:32 by Francois Soler MD) Chest pain (Acute) Hypotension (Acute) - Physical Exam General: Alert, Oriented x3, Cooperative, No apparent distress HEENT: Atraumatic, PERRLA, EOMI, Normocephalic Oral: Moist Mucosa, No Gingival or Mucosal Lesions/ Ulcerations Neck: Supple, No JVD, Negative Carotid Bruits, Trachea Midline, Thyroid Normal Size and Texture Lungs: Clear to auscultation, No rhonchi, No wheeze, Diminished, - - Right basilar faint crackles. Cardiovascular: Regular rate, Regular Rhythm, Normal S1, Normal S2, PMI Normal Abdomen: Bowel Sounds Present, Soft, Non Tender, Non-Distended, No Hepato-s plenomegaly, Obese, - - Colostomy bag in place. Extremities: No clubbing, No cyanosis, Edema - + Edema on the left leg. Skin: No rashes, No breakdown Lymphatic: No Cervical, Supraclavicular, or Inguinal Adenopathy Neurological: Cranial nerves II-XII grossly intact, Motor Exam 5/5 strength throughout Psych/Mental Status: Normal Affect, Appropriate, Alert and oriented to time, place, person, mood and affect Vital Signs Temp Pulse Resp BP Pulse Ox 97 F L 73 20 H 106/83 H 96 12/31/18 08:53 12/31/18 11:23 12/31/18 11:23 12/31/18 11:23 12/31/18 11:23 Oxygen Flow Rate (L/min) 3 Oxygen Delivery Method Nasal Cannula Weight: 224 lb 13.944 oz Body Mass Index (BMI) 36.3 Finger Stick Blood Glucose 118 Laboratory Tests Past 24 Hrs 12/31/18 12/31/18 09:35 09:35 WBC 3.8 L RBC 2.64 L Hgb 8.9 L Hct 28.6 L MCV 108.3 H MCH 33.7 H MCHC 31.1 L RDW 16.7 H RDW Differential 64.6 H Plt Count 70 L MPV 8.8 Immature Gran % (Auto) 0.300 Neut % (Auto) 75.4 H Lymph % (Auto) 18.2 L [place] % (Auto) 4.7 Eos % (Auto) 1.1 Baso % (Auto) 0.3 Absolute Neuts (auto) 2.9 Absolute Lymphs (auto) 0.69 L Total Counted Not Reportable Sodium 137 Potassium 4.2 Chloride 97 L Carbon Dioxide 33.0 H Anion Gap 7 BUN 32 H Creatinine 5.44 H Estim Creat Clear Calc 12.23 Est GFR (MDRD) Af Amer 11 L Est GFR (MDRD) Non-Af 9 L BUN/Creatinine Ratio 5.9 L Glucose 246 H Calcium 8.2 L Troponin I 0.131 H Clinical Impression(s) from Imaging Studies Chest X-Ray 12/31/18 09:10 IMPRESSION: Cardiomegaly and CHF. Blunting of the right costophrenic angle. Electronically Signed: Josh Hill, at 10:22 EDT , Service support , Assessment/Plan All Active Problems (Last Updated 12/31/18 @ 11:32 by Francois Soler MD) Chest pain (Acute) Hypotension (Acute) This is a 43 years old female patient presented to the emergency room because of chest pain, found to have hypotension and she is being admitted for evaluation. #1 chest pain/EKG changes: In context of history of CAD status post stents. EKG reviewed, revealed T wave inversion in lateral chest leads, this is new finding. Troponin is chronically elevated. She had nuclear stress test that was done on September, that revealed evidence of previous extensive anterior and apical as well as inferior apical infarct, ischemic cardiomyopathy without evidence of acute ischemia. Plan: Admit to PCU, cardiac monitoring, serial cardiac enzymes, repeat EKG tomorrow morning, nitroglycerin PRN for chest pain, cardiology consult, close monitoring of blood pressure, continue aspirin, statins, Coreg, will check LFT and lipase, PT OT evaluation and treatment. At this time, I doubt acute CHF. #2 hypotension: Patient mentioned that his blood pressure goes down usually with dialysis and after dialysis. Her blood pressure improved with IV fluid bolus. Plan: Close monitoring of blood pressure, hold lisinopril and nitrates, continue Coreg. #3 CAD status post stents: Plan as above, continue aspirin, statins, Coreg, hold lisinopril and nitrates because of hypotension. #4 ESRD on hemodialysis: Patient received hemodialysis today, not completed. Potassium is normal. Plan: Nephrology consult, continue scheduled hemodialysis, continue sodium bicarb, continue PhosLo gel. No indication for urgent dialysis. #5 type 1 diabetes mellitus: ADA diet, Accu-Cheks, insulin scale, continue home doses of NovoLog 3 times daily and Lantus nightly. #6 hyperlipidemia: Continue statins. #7 anxiety/depression: Continue Xanax and melatonin. #8 chronic anemia: Likely due to anemia of chronic disease secondary to chronic renal failure. Hemoglobin and hematocrit are stable at baseline. #9 COPD/chronic respiratory failure: On home oxygen at 3 L. At this time, pulse ox is 95% on 2 L. Plan: DuoNeb every 6 hours, albuterol as needed, continue oxygen by nasal cannula to keep O2 saturation more than 92%. #10 DVT prophylaxis: Subcu heparin. This note was generated with [employer] dictation software. It may contain incorrect words, spelling, and punctuation that were not noted in checking the note before signing. Code Visit Inpatient E&M: 09249 Init Hosp L3
[2018-12-31 12:09] LABS: AST(SGOT) 25 U/L (15-37); Alanine Aminotransfer ALT/SGPT 32 U/L (13-56); Albumin, Serum 2.6 g/dL (3.2-5.0); Alkaline Phosphatase 122 U/L (45-117); Bilirubin, Direct 0.15 mg/dL (0.00-0.30); Lipase 144 U/L (73-393); Protein, Total 6.6 g/dL (6.4-8.2)
--- NOTE | 2018-12-31 12:21 | EKG12_ITS ---
Test Reason : CP ADMISSION Blood Pressure : / mmHG Vent. Rate : 076 BPM Atrial Rate : 076 BPM P-R Int : 128 ms QRS Dur : 090 ms QT Int : 442 ms P-R-T Axes : 063 078 196 degrees QTc Int : 497 ms Sinus rhythm with frequent Premature ventricular complexes Nonspecific T wave abnormality Prolonged QT Poor R- Wave Progression Abnormal ECG Confirmed by CHEPE BEASLEY, KAITLYNN ([id number]), editor map KEVIN WALTERS ([id number]) on 01/02/2019 11:48:28 AM Referred By: Francois Soler Confirmed By:KAITLYNN MO MD
[2018-12-31] MEDS: Ipratropium/Albuterol Sulfate 3 ML AMPUL.NEB INHALATION (13:18)
--- NOTE | 2018-12-31 14:02 | PCM.CONS.C ---
Reason for Consult History of Present Illness: KOURTNEY REZA, is a 43 F who presented to the emergency room today after she experienced chest discomfort during dialysis. She has history of coronary artery disease status post PTCA/VIKY to mid LAD in February 2018, remote PDA repair, end-stage renal disease on hemodialysis on Tuesdays, , and Saturdays, anemia of chronic disease, nonischemic cardiomyopathy, diabetes, hypertension, hyperlipidemia, and gastroparesis. She presented [facility] emergency department on February 24, 2018 with recurrent chest pain. She underwent a heart catheterization that resulted and PTCA/VIKY to mid LAD with recommendation of medical management for mid obtuse marginal #1. She was discharged home. She then presented to [facility] department 02/28/18 days later for dizziness and hyperkalemia. She again presented to the ED on 03/06/18 for bleeding from fistula site. She presented to the ED again on 03/12/18 for nausea, vomiting, and diarrhea. She had actually been doing well since then and had had a follow-up office visit. She says that today she had some chest discomfort that had been preceded by left leg discomfort and cramping. The chest discomfort was on the right side with some radiation. There was also some nausea. She did have an ultrasound of that leg but no significant abnormality or DVT was noted. She was brought to the emergency room cardiac enzymes were performed which were mildly abnormal which they almost always are and therefore cardiology was consulted for further evaluation and management. He was also noted to be hypotensive when she presented and was given a fluid bolus. Subtle T wave inversions were noted. 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 Past Medical History Allergies/Adverse Reactions: Allergies latex Allergy (Verified 12/31/18 08:58) Rash prochlorperazine [From Compazine] Allergy (Verified 12/31/18 08:58) Unknown levofloxacin [From Levaquin] Adverse Reaction (Verified 12/31/18 08:58) PT CAN'T REMEMBER PT CAN'T REMEMBER metoclopramide HCl [From Reglan] Adverse Reaction (Verified 12/31/18 08:58) Nausea NSAIDS (Non-Steroidal Anti-Inflamma Adverse Reaction (Verified 12/31/18 08:58) kidney function oxycodone HCl [From Percocet] Adverse Reaction (Verified 12/31/18 08:58) HALLUCINATIONS Home Medications: Ambulatory Orders Medication Instructions Recorded Aspirin [Aspirin, Baby] 81 mg PO DAILY@0800 01/26/16 Calcium Acetate [Phoslo Gel Cap] 1,334 mg PO TIDCM 01/26/16 Ergocalciferol [Vitamin D] 50,000 unit PO MO 01/26/16 Insulin Aspart [Novolog Flexpen] 10 units SC TIDCM 01/26/16 Insulin Glargine,Hum.rec.anlog 5 unit SQ QHS 01/09/17 [Lantus] proMETHazine tablet [Phenergan 25 mg PO Q6H PRN PRN #10 tab 03/06/17 tablet] Lisinopril 20 mg PO DAILY 03/29/17 Sodium Bicarbonate 650 mg PO 4X/DAY 03/29/17 Atorvastatin Calcium [Lipitor] 20 mg PO QHS 05/26/18 Carvedilol [Coreg] 25 mg PO BID 05/26/18 Loperamide HCl [Imodium A-D] 2 mg PO TID PRN 05/26/18 Pantoprazole Sodium [Protonix] 20 mg PO BID 05/26/18 Clopidogrel Bisulfate [Plavix] 75 mg PO DAILY 07/01/18 ALPRAZolam [Xanax] 0.5 mg PO MOWEFR PRN 08/09/18 B Complex W-C No.20/Folic Acid 1 mg PO DAILY 08/09/18 [Nephrocaps Softgel] Fluoxetine HCl 40 mg PO DAILY 08/09/18 Lidocaine/Prilocaine HCl [Emla 1 applicatio TOPICAL MOWEFR 10/01/18 Cream W/Tegaderm] Nystatin Powder [Mycostatin Powder] 1 applic TOPICAL BID PRN 10/14/18 hydrOXYzine tablet [Atarax tablet] 10 mg PO MOWEFR 11/06/18 Isosorbide Mononitrate [Imdur] 60 mg PO BID 12/14/18 Melatonin 10 mg PO QHS PRN 12/14/18 Sodium Chloride 0.65% [[place] Nasal 2 spray NASAL TID PRN PRN 12/14/18 [place]] spray.btl Past Medical History (Chronic Problems): Chronic Problems (Last Updated 12/31/18 @ 11:32 by Francois Soler MD) COPD (chronic obstructive pulmonary disease) (Chronic) Elevated troponin I level (Chronic) Anemia due to chronic kidney disease (Chronic) CAD (coronary artery disease) (Chronic) Stented coronary artery (Chronic 02/26/18) FFR of LAD 0.82; VIKY of mid LAD with 2.5 X 24 mm Promus Synergy, OM <50% stenosis per Dr. Magdaleno @ [facility] ESRD (end stage renal disease) on dialysis (Chronic) Decubitus ulcer, stage III (Chronic) Anemia, chronic disease (Chronic) GABRIEL (obstructive sleep apnea) (Chronic) Depression (Chronic) Anxiety (Chronic) HTN (hypertension) (Chronic) Nonischemic cardiomyopathy (Chronic) EF 45% per echo 07/01/2018 S/P repair of PDA (patent ductus arteriosus) (Chronic) At young age Diabetes mellitus type 1 (Chronic) Hyperlipidemia (Chronic) Obesity (BMI 30.0-34.9) (Chronic) Gastroparesis (Chronic) Surgical History: angioplasty, appendectomy, hysterectomy - and BSO, - - c-sections, L breast I+D for abscess, fistula placement LUE, L ankle surgery, appendectomy, PDA repair. Excision pilonidal cyst ulcer about 4 years ago. Colostomy placed due to rectal abscess/wound, patent ductus repair, drug-eluting stent placement left anterior descending coronary artery February 2018. Psychiatric History: Anxiety, Depression PROCEDURE MANAGER History: No pertinent PROCEDURE MANAGER history - *Family History Maternal Family History: Family History (Last Updated 12/07/18 @ 15:38 by Pricila Olson) Father Diabetes Mother Kidney disease CVA (cerebral vascular accident) Hypertension Diabetes Cancer History Items: Cancer, COPD, Diabetes, Hypertension, Renal Disease, Stroke Paternal Family History: Family History (Last Updated 12/07/18 @ 15:38 by Pricila Olson) Father Diabetes Mother Kidney disease CVA (cerebral vascular accident) Hypertension Diabetes Cancer History Items: Diabetes Sibling Family History: Family History (Last Updated 12/07/18 @ 15:38 by Pricila Olson) Father Diabetes Mother Kidney disease CVA (cerebral vascular accident) Hypertension Diabetes Cancer History Items: Cancer, Diabetes Lives: Alone Smoking Status: Current every day smoker Tobacco Use: Cigarettes Alcohol: None Drugs: None Review of Systems - Review of Systems General: Reports: Fatigue. Denies: Fever, Night Sweats HEENT: Denies: Vision Change Cardiovascular: Reports: Chest Discomfort. Denies: Shortness of Breath, Orthopnea, PND, Peripheral Edema, Palpitations, Lightheadedness, Dizziness, Near Syncope, Syncope Respiratory: Denies: Cough, Sputum Production, Hemoptysis Gastrointestinal: Denies: Indigestion, Hematemesis, Hematochezia, Melena Genitourinary: Denies: Dysuria, Hematuria Muscoloskeletal: Reports: Muscle Cramps Skin: Denies: Rash Neurological: Denies: Dizziness Psychiatric: Denies: Anxiety Endocrine: Denies: Unexplained Weight Loss Hematologic/ Lymphatic: Denies: Anemia Subjectve: Young lady in no distress but appears to be distant and sleepy Objective: Vital Signs Temp Pulse Resp BP Pulse Ox 97.4 F L 71 16 122/86 H 97 12/31/18 12:09 12/31/18 13:18 12/31/18 13:18 12/31/18 12:09 12/31/18 12:09 Oxygen Flow Rate (L/min) 2 Oxygen Delivery Method Nasal Cannula Weight: 208 lb 12.444 oz Body Mass Index (BMI) 33.7 Finger Stick Blood Glucose 118 General: Awake, Alert, Oriented x 3 HEENT: PERRL, EOMI, Sclera Non Icteric Neck: Supple, Good ROM, No Lymph Node Enlargement Lungs: Clear to auscultation Cardiovascular: Regular Rhythm, Normal S1, Normal S2, No Murmurs, No Rubs, No Gallops Vascular: No Carotid Bruits, Normal Femoral Pulses, Normal Radial Pulses, Normal Dorsalis Pedal Pulse, Normal Posterior Tibial Pulses Abdomen: Bowel Sounds Present, Soft, Non Tender, No HSM, No Organomegaly Extremities: No Cyanosis, No Clubbing, No edema Musculoskeletal: No Erythema Skin: No Rashes Lymphatic: No Lymph Node Enlargement Neurological: No Focal Motor or Sensory Deficit Psych/Mental Status: Appropriate 12/31/18 09:35: WBC 3.8 L, RBC 2.64 L, Hgb 8.9 L, Hct 28.6 L, MCV 108.3 H, MCH 33.7 H, MCHC 31.1 L, RDW 16.7 H, RDW Differential 64.6 H, Plt Count 70 L, MPV 8.8, Immature Gran % (Auto) 0.300, Neut % (Auto) 75.4 H, Lymph % (Auto) 18.2 L, [place] % (Auto) 4.7, Eos % (Auto) 1.1, Baso % (Auto) 0.3, Absolute Neuts (auto) 2.9, Total Counted Not Reportable 12/31/18 09:35: Sodium 137, Potassium 4.2, Chloride 97 L, Carbon Dioxide 33.0 H, Anion Gap 7, BUN 32 H, Creatinine 5.44 H, Est GFR (MDRD) Af Amer 11 L, Est GFR (MDRD) Non-Af 9 L, BUN/Creatinine Ratio 5.9 L, Glucose 246 H, Calcium 8.2 L, Troponin I 0.131 H 12/31/18 09:35: Total Bilirubin 0.30, Direct Bilirubin 0.15 12/31/18 12:55: Troponin I 0.146 H Rhythm: EKG: ECHO: Stress Test: Cardiac Cath: PCI: CT Surgery: Holter monitor: EPS: PPM: CXR: Chest CT Scan: Assessment/Plan 1. Chest discomfort with abnormal cardiac enzymes. Presents with chest discomfort with abnormal cardiac enzymes. She recently underwent stress testing within the last 3 months with no evidence of ischemia. In addition a cardiac catheterization within the last year also demonstrated previously placed stent. At this time with her level of troponin elevation I would say that we continue to manage her expectantly. Unless her cardiac enzymes changed significantly no other changes would be advocated I do not think that this is an unstable anginal lesion. We should continue to optimize her anginal medication. I like to observe her overnight and for her to continue her dialysis. 2. Coronary artery disease She does have a history of coronary artery disease with previous stenting noted in the left anterior descending artery. Stress testing does not demonstrate any evidence of ischemia in this area in the last 3 months. We will continue with the same medical therapy. 3. Risk factor modification She should continue with risk factor modification with statin use and control of her blood pressure. Thank you for allowing me to participate in the care of your patient. Please don't hesitate to call if any issues arise
--- NOTE | 2018-12-31 14:07 | CON.PCM_ITS ---
Reason for Consult History of Present Illness: KOURTNEY REZA, is a 43 F who presented to the emergency room today after she experienced chest discomfort during dialysis. She has history of coronary artery disease status post PTCA/VIKY to mid LAD in February 2018, remote PDA repair, end-stage renal disease on hemodialysis on Tuesdays, , and Saturdays, anemia of chronic disease, nonischemic cardiomyopathy, diabetes, hypertension, hyperlipidemia, and gastroparesis. She presented [facility] emergency department on February 24, 2018 with recurrent chest pain. She underwent a heart catheterization that resulted and PTCA/VIKY to mid LAD with recommendation of medical management for mid obtuse marginal #1. She was discharged home. She then presented to [facility] emergency department 02/28/18 days later for dizziness and hyperkalemia. She again presented to the ED on 03/06/18 for bleeding from fistula site. She presented to the ED again on 03/12/18 for nausea, vomiting, and diarrhea. She had actually been doing well since then and had had a follow- up office visit. She says that today she had some chest discomfort that had been preceded by left leg discomfort and cramping. The chest discomfort was on the right side with some radiation. There was also some nausea. She did have an ultrasound of that leg but no significant abnormality or DVT was noted. She was brought to the emergency room cardiac enzymes were performed which were mildly abnormal which they almost always are and therefore cardiology was consulted for further evaluation and management. He was also noted to be hypotensive when she presented and was given a fluid bolus. Subtle T wave inversions were noted. 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 Past Medical History Allergies/Adverse Reactions: Allergies latex Allergy (Verified 12/31/18 08:58) Rash prochlorperazine [From Compazine] Allergy (Verified 12/31/18 08:58) Unknown levofloxacin [From Levaquin] Adverse Reaction (Verified 12/31/18 08:58) PT CAN'T REMEMBER PT CAN'T REMEMBER metoclopramide HCl [From Reglan] Adverse Reaction (Verified 12/31/18 08:58) Nausea NSAIDS (Non-Steroidal Anti-Inflamma Adverse Reaction (Verified 12/31/18 08:58) kidney function oxycodone HCl [From Percocet] Adverse Reaction (Verified 12/31/18 08:58) HALLUCINATIONS Home Medications: Ambulatory Orders Medication Instructions Recorded Aspirin [Aspirin, Baby] 81 mg PO DAILY@0800 01/26/16 Calcium Acetate [Phoslo Gel Cap] 1,334 mg PO TIDCM 01/26/16 Ergocalciferol [Vitamin D] 50,000 unit PO MO 01/26/16 Insulin Aspart [Novolog Flexpen] 10 units SC TIDCM 01/26/16 Insulin Glargine,Hum.rec.anlog 5 unit SQ QHS 01/09/17 [Lantus] proMETHazine tablet [Phenergan 25 mg PO Q6H PRN PRN #10 tab 03/06/17 tablet] Lisinopril 20 mg PO DAILY 03/29/17 Sodium Bicarbonate 650 mg PO 4X/DAY 03/29/17 Atorvastatin Calcium [Lipitor] 20 mg PO QHS 05/26/18 Carvedilol [Coreg] 25 mg PO BID 05/26/18 Loperamide HCl [Imodium A-D] 2 mg PO TID PRN 05/26/18 Pantoprazole Sodium [Protonix] 20 mg PO BID 05/26/18 Clopidogrel Bisulfate [Plavix] 75 mg PO DAILY 07/01/18 ALPRAZolam [Xanax] 0.5 mg PO MOWEFR PRN 08/09/18 B Complex W-C No.20/Folic Acid 1 mg PO DAILY 08/09/18 [Nephrocaps Softgel] Fluoxetine HCl 40 mg PO DAILY 08/09/18 Lidocaine/Prilocaine HCl [[place] 1 applicatio TOPICAL MOWEFR 10/01/18 Cream W/Tegaderm] Nystatin Powder [Mycostatin Powder] 1 applic TOPICAL BID PRN 10/14/18 hydrOXYzine tablet [Atarax tablet] 10 mg PO MOWEFR 11/06/18 Isosorbide Mononitrate [Imdur] 60 mg PO BID 12/14/18 Melatonin 10 mg PO QHS PRN 12/14/18 Sodium Chloride 0.65% [[place] Nasal 2 spray NASAL TID PRN PRN 12/14/18 [place]] spray.btl Past Medical History (Chronic Problems): Chronic Problems (Last Updated 12/31/18 @ 11:32 by Francois Soler MD) COPD (chronic obstructive pulmonary disease) (Chronic) Elevated troponin I level (Chronic) Anemia due to chronic kidney disease (Chronic) CAD (coronary artery disease) (Chronic) Stented coronary artery (Chronic 02/26/18) FFR of LAD 0.82; VIKY of mid LAD with 2.5 X 24 mm Promus Synergy, OM <50% stenosis per Dr. Magdaleno @ [facility] ESRD (end stage renal disease) on dialysis (Chronic) Decubitus ulcer, stage III (Chronic) Anemia, chronic disease (Chronic) GBARIEL (obstructive sleep apnea) (Chronic) Depression (Chronic) Anxiety (Chronic) HTN (hypertension) (Chronic) Nonischemic cardiomyopathy (Chronic) EF 45% per echo 07/01/2018 S/P repair of PDA (patent ductus arteriosus) (Chronic) At young age Diabetes mellitus type 1 (Chronic) Hyperlipidemia (Chronic) Obesity (BMI 30.0-34.9) (Chronic) Gastroparesis (Chronic) Surgical History: angioplasty, appendectomy, hysterectomy - and BSO, - - c- sections, L breast I+D for abscess, fistula placement LUE, L ankle surgery, appendectomy, PDA repair. Excision pilonidal cyst ulcer about 4 years ago. Colostomy placed due to rectal abscess/wound, patent ductus repair, drug-eluting stent placement left anterior descending coronary artery February 2018. 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 - *Family History Maternal Family History: Family History (Last Updated 12/07/18 @ 15:38 by Pricila Olson) Father Diabetes Mother Kidney disease CVA (cerebral vascular accident) Hypertension Diabetes Cancer History Items: Cancer, COPD, Diabetes, Hypertension, Renal Disease, Stroke Paternal Family History: Family History (Last Updated 12/07/18 @ 15:38 by Pricila Olson) Father Diabetes Mother Kidney disease CVA (cerebral vascular accident) Hypertension Diabetes Cancer History Items: Diabetes Sibling Family History: Family History (Last Updated 12/07/18 @ 15:38 by Pricila Olson) Father Diabetes Mother Kidney disease CVA (cerebral vascular accident) Hypertension Diabetes Cancer History Items: Cancer, Diabetes Lives: Alone Smoking Status: Current every day smoker Tobacco Use: Cigarettes Alcohol: None Drugs: None Review of Systems - Review of Systems General: Reports: Fatigue. Denies: Fever, Night Sweats HEENT: Denies: Vision Change Cardiovascular: Reports: Chest Discomfort. Denies: Shortness of Breath, Orthopnea, PND, Peripheral Edema, Palpitations, Lightheadedness, Dizziness, Near Syncope, Syncope Respiratory: Denies: Cough, Sputum Production, Hemoptysis Gastrointestinal: Denies: Indigestion, Hematemesis, Hematochezia, Melena Genitourinary: Denies: Dysuria, Hematuria Muscoloskeletal: Reports: Muscle Cramps Skin: Denies: Rash Neurological: Denies: Dizziness Psychiatric: Denies: Anxiety Endocrine: Denies: Unexplained Weight Loss Hematologic/ Lymphatic: Denies: Anemia Subjectve: Young lady in no distress but appears to be distant and sleepy Objective: Vital Signs Temp Pulse Resp BP Pulse Ox 97.4 F L 71 16 122/86 H 97 12/31/18 12:09 12/31/18 13:18 12/31/18 13:18 12/31/18 12:09 12/31/18 12:09 Oxygen Flow Rate (L/min) 2 Oxygen Delivery Method Nasal Cannula Weight: 208 lb 12.444 oz Body Mass Index (BMI) 33.7 Finger Stick Blood Glucose 118 General: Awake, Alert, Oriented x 3 HEENT: PERRL, EOMI, Sclera Non Icteric Neck: Supple, Good ROM, No Lymph Node Enlargement Lungs: Clear to auscultation Cardiovascular: Regular Rhythm, Normal S1, Normal S2, No Murmurs, No Rubs, No Gallops Vascular: No Carotid Bruits, Normal Femoral Pulses, Normal Radial Pulses, Normal Dorsalis Pedal Pulse, Normal Posterior Tibial Pulses Abdomen: Bowel Sounds Present, Soft, Non Tender, No HSM, No Organomegaly Extremities: No Cyanosis, No Clubbing, No edema Musculoskeletal: No Erythema Skin: No Rashes Lymphatic: No Lymph Node Enlargement Neurological: No Focal Motor or Sensory Deficit Psych/Mental Status: Appropriate 12/31/18 09:35: WBC 3.8 L, RBC 2.64 L, Hgb 8.9 L, Hct 28.6 L, MCV 108.3 H, MCH 33.7 H, MCHC 31.1 L, RDW 16.7 H, RDW Differential 64.6 H, Plt Count 70 L, MPV 8.8, Immature Gran % (Auto) 0.300, Neut % (Auto) 75.4 H, Lymph % (Auto) 18.2 L, [place] % (Auto) 4.7, Eos % (Auto) 1.1, Baso % (Auto) 0.3, Absolute Neuts (auto) 2.9, Total Counted Not Reportable 12/31/18 09:35: Sodium 137, Potassium 4.2, Chloride 97 L, Carbon Dioxide 33.0 H, Anion Gap 7, BUN 32 H, Creatinine 5.44 H, Est GFR (MDRD) Af Amer 11 L, Est GFR (MDRD) Non-Af 9 L, BUN/Creatinine Ratio 5.9 L, Glucose 246 H, Calcium 8.2 L, Troponin I 0.131 H 12/31/18 09:35: Total Bilirubin 0.30, Direct Bilirubin 0.15 12/31/18 12:55: Troponin I 0.146 H Rhythm: EKG: ECHO: Stress Test: Cardiac Cath: PCI: CT Surgery: Holter monitor: EPS: PPM: CXR: Chest CT Scan: Assessment/Plan 1. Chest discomfort with abnormal cardiac enzymes. * Presents with chest discomfort with abnormal cardiac enzymes. She recently underwent stress testing within the last 3 months with no evidence of ischemia. In addition a cardiac catheterization within the last year also demonstrated previously placed stent. At this time with her level of troponin elevation I would say that we continue to manage her expectantly. Unless her cardiac enzymes changed significantly no other changes would be advocated I do not think that this is an unstable anginal lesion. We should continue to optimize her anginal medication. I like to observe her overnight and for her to continue her dialysis. * 2. Coronary artery disease * She does have a history of coronary artery disease with previous stenting noted in the left anterior descending artery. Stress testing does not demonstrate any evidence of ischemia in this area in the last 3 months. We will continue with the same medical therapy. * 3. Risk factor modification * She should continue with risk factor modification with statin use and control of her blood pressure. * * Thank you for allowing me to participate in the care of your patient. Please don't hesitate to call if any issues arise
[2018-12-31] MEDS: Acetaminophen 325 MG Tablet 650 MG PO ×2 (14:37→22:08)
--- NOTE | 2018-12-31 15:05 | DIALYSIS ---
[place] removed from left forearm fistula. Pressure applied to sites. Sites held x 8 minutes. Fresh gauze and tape applied. Pt is stable. Report was given to MALLORY Castellano.
[2018-12-31 16:35] LABS: Bedside Glucose 269 mg/dL (70-110)
--- NOTE | 2018-12-31 16:42 | CON.PCM_ITS ---
Problem List (1) ESRD (end stage renal disease) on dialysis Status: Chronic Consultation - Renal 12/31/18 PCP/ Referring MD: Requesting physician: Dr Navarro Primary care physician: Christopher Foy MD Reason for Consultation:: ESRD - History of Present Illness History of Present Illness: The patient is a 43 year old F well known to us. ESRD on HD MWF schedule went to dialysis today. came off half way through and developed chest pain right after. troponins borderline currently no complaints - Allergies Allergies: Allergies latex Allergy (Verified 12/31/18 08:58) Rash prochlorperazine [From Compazine] Allergy (Verified 12/31/18 08:58) Unknown levofloxacin [From Levaquin] Adverse Reaction (Verified 12/31/18 08:58) PT CAN'T REMEMBER PT CAN'T REMEMBER metoclopramide HCl [From Reglan] Adverse Reaction (Verified 12/31/18 08:58) Nausea NSAIDS (Non-Steroidal Anti-Inflamma Adverse Reaction (Verified 12/31/18 08:58) kidney function oxycodone HCl [From Percocet] Adverse Reaction (Verified 12/31/18 08:58) HALLUCINATIONS - Current Medications Current Medications: Current Medications Acetaminophen (Tylenol) 650 mg PO Q6H PRN PRN PRN Reason: Mild pain 1-3/Temp > 100.7 F Last Admin: 12/31/18 14:37 Dose: 650 mg Albuterol Sulfate (Ventolin Aerosols) 2.5 mg INHALATION Q4H PRN PRN PRN Reason: Shortness of breath, wheezing Albuterol/Ipratropium (Duoneb) 3 ml INHALATION Q6H.RT [place] Last Admin: 12/31/18 13:18 Dose: 3 ml Alprazolam (Xanax) 0.5 mg PO MOWEFR PRN PRN Reason: ANXIETY Aspirin (Aspirin, Baby) 81 mg PO DAILY@0800 [facility] Atorvastatin Calcium (Lipitor) 20 mg PO QHS [facility] Calcium Acetate (Phoslo Gel Cap) 1,334 mg PO TIDCM [facility] Last Admin: 12/31/18 14:04 Dose: Not Given Carvedilol (Coreg) 25 mg PO BIDCM [facility] Clopidogrel Bisulfate (Plavix) 75 mg PO DAILY [facility] Dextrose (D50w Syringe) 0 gm IV X1 PRN; Protocol PRN Reason: Hypoglycemia Fluoxetine HCl (Prozac) 40 mg PO DAILY [facility] Glucagon () 1 mg IM .X1 PRN PRN Reason: Hypoglycemia Heparin Sodium (Porcine) (Heparin Na) 5,000 unit SC Q12 [facility] Hydroxyzine HCl (Atarax Tablet) 10 mg PO MOWEFR [facility] Last Admin: 12/31/18 12:39 Dose: Not Given Insulin Glargine (Lantus (Bkc)) 5 units SC QHS [place] Insulin Human Lispro (Humalog Kwikpen (Bk)) 0 unit SC ACHS [place]; Protocol Insulin Human Lispro (Humalog Kwikpen (Bkc)) 10 unit SC 0800,1200,1700 [facility] Loperamide HCl (Imodium) 2 mg PO TID PRN PRN Reason: LOOSE STOOLS Melatonin (Melatonin) 10 mg PO QHS PRN PRN Reason: SLEEP Nitroglycerin (Nitrostat) 0.4 mg SUBLINGUAL Q5M PRN PRN Reason: CARDIAC/CHEST PAIN Ondansetron HCl (Zofran) 4 mg IV Q8H PRN PRN PRN Reason: NAUSEA/VOMITING Pantoprazole Sodium (Protonix) 20 mg PO BID [facility] Sodium Bicarbonate (Sodium Bicarbonate) 650 mg PO 4X/DAY [facility] Last Admin: 12/31/18 15:37 Dose: Not Given - Past Medical History Past Medical History (Chronic Problems): Chronic Problems (Last Updated 12/31/18 @ 11:32 by Francois Navarro MD) COPD (chronic obstructive pulmonary disease) (Chronic) Elevated troponin I level (Chronic) Anemia due to chronic kidney disease (Chronic) CAD (coronary artery disease) (Chronic) Stented coronary artery (Chronic 02/26/18) FFR of LAD 0.82; VIKY of mid LAD with 2.5 X 24 mm Promus Synergy, OM <50% stenosis per Dr. Magdaleno @ [facility] ESRD (end stage renal disease) on dialysis (Chronic) Decubitus ulcer, stage III (Chronic) Anemia, chronic disease (Chronic) GABRIEL (obstructive sleep apnea) (Chronic) Depression (Chronic) Anxiety (Chronic) HTN (hypertension) (Chronic) Nonischemic cardiomyopathy (Chronic) EF 45% per echo 07/01/2018 S/P repair of PDA (patent ductus arteriosus) (Chronic) At young age Diabetes mellitus type 1 (Chronic) Hyperlipidemia (Chronic) Obesity (BMI 30.0-34.9) (Chronic) Gastroparesis (Chronic) - Past Surgical History Surgical History: angioplasty, appendectomy, hysterectomy - and BSO, - - c- sections, L breast I+D for abscess, fistula placement LUE, L ankle surgery, appendectomy, PDA repair. Excision pilonidal cyst ulcer about 4 years ago. Colostomy placed due to rectal abscess/wound, patent ductus repair, drug-eluting stent placement left anterior descending coronary artery February 2018. - Social History Smoking Status: Current every day smoker Alcohol: None Drugs: None - Family History Maternal Family History: Family History (Last Updated 12/07/18 @ 15:38 by Pricila Olson) Father Diabetes Mother Kidney disease CVA (cerebral vascular accident) Hypertension Diabetes Cancer History Items: Cancer, COPD, Diabetes, Hypertension, Renal Disease, Stroke Paternal Family History: Family History (Last Updated 12/07/18 @ 15:38 by Pricila Olson) Father Diabetes Mother Kidney disease CVA (cerebral vascular accident) Hypertension Diabetes Cancer History Items: Diabetes Sibling Family History: Family History (Last Updated 12/07/18 @ 15:38 by Pricila Olson) Father Diabetes Mother Kidney disease CVA (cerebral vascular accident) Hypertension Diabetes Cancer History Items: Cancer, Diabetes Review of Systems Constitutional: Denies: Chills, Fever, Weight Change HEENT: Denies: Head Aches, Sinus Congestion, Sinus Drainage Cardiovascular: Denies: Chest Pain, Palpitations Respiratory: Denies: Cough, Shortness of breath at rest, Sputum production Gastrointestinal: Denies: Abdominal Pain, Nausea, Vomiting Genitourinary: Denies: Dysuria Musculoskeletal: Denies: Joint Pain, Joint Tenderness Skin: Denies: Rash, Wounds Neurological: Denies: Numbness, Tingling, Focal weakness Psychiatric: Denies: Anxiety, Depression, Homicidal Ideations, Suicidal Ideations Hematologic/ Lymphatic: Denies: Easy Bruising, Easy Bleeding Patient Problems: Active and Suspected Problems (Last Updated 12/31/18 @ 11:32 by Francois Navarro MD) Chest pain (Acute) Hypotension (Acute) - Physical Exam General: Alert, Oriented x3, Cooperative HEENT: Atraumatic, PERRLA, EOMI, Normocephalic Neck: Supple, No JVD, Negative Carotid Bruits Lungs: Clear to auscultation, Normal air movement Cardiovascular: Regular rate, No murmurs Abdomen: Bowel Sounds Present, Soft, Non Tender Extremities: No edema, Capillary Refill Less than 3 Seconds Skin: No rashes, No breakdown Musculoskeletal: No Tenderness to Palpation of Joints or Extremities Neurological: Cranial nerves II-XII grossly intact Psych/Mental Status: Normal Affect, Appropriate Vital Signs Temp Pulse Resp BP Pulse Ox 98 F 81 18 124/65 H 96 12/31/18 15:41 12/31/18 15:41 12/31/18 15:41 12/31/18 15:41 12/31/18 15:41 Oxygen Flow Rate (L/min) 2 Oxygen Delivery Method Nasal Cannula Weight: 94.7 kg Body Mass Index (BMI) 33.7 Finger Stick Blood Glucose 118 Intake and Output for Last 24 Hours 12/29/18 12/30/18 12/31/18 23:59 23:59 23:59 Intake Total 240 / 240 Balance 240 / 240 Laboratory Tests Past 24 Hrs 12/31/18 12/31/18 12/31/18 09:35 09:35 09:35 WBC 3.8 L RBC 2.64 L Hgb 8.9 L Hct 28.6 L MCV 108.3 H MCH 33.7 H MCHC 31.1 L RDW 16.7 H RDW Differential 64.6 H Plt Count 70 L MPV 8.8 Immature Gran % (Auto) 0.300 Neut % (Auto) 75.4 H Lymph % (Auto) 18.2 L [place] % (Auto) 4.7 Eos % (Auto) 1.1 Baso % (Auto) 0.3 Absolute Neuts (auto) 2.9 Absolute Lymphs (auto) 0.69 L Total Counted Not Reportable Sodium 137 Potassium 4.2 Chloride 97 L Carbon Dioxide 33.0 H Anion Gap 7 BUN 32 H Creatinine 5.44 H Estim Creat Clear Calc 12.23 Est GFR (MDRD) Af Amer 11 L Est GFR (MDRD) Non-Af 9 L BUN/Creatinine Ratio 5.9 L Glucose 246 H Calcium 8.2 L Total Bilirubin 0.30 Direct Bilirubin 0.15 AST 25 ALT 32 Alkaline Phosphatase 122 H Troponin I 0.131 H Total Protein 6.6 Albumin 2.6 L Globulin 4.0 Lipase 144 12/31/18 12/31/18 12:55 16:05 WBC RBC Hgb Hct MCV MCH MCHC RDW RDW Differential Plt Count MPV Immature Gran % (Auto) Neut % (Auto) Lymph % (Auto) [place] % (Auto) Eos % (Auto) Baso % (Auto) Absolute Neuts (auto) Absolute Lymphs (auto) Total Counted Sodium Potassium Chloride Carbon Dioxide Anion Gap BUN Creatinine Estim Creat Clear Calc Est GFR (MDRD) Af Amer Est GFR (MDRD) Non-Af BUN/Creatinine Ratio Glucose Calcium Total Bilirubin Direct Bilirubin AST ALT Alkaline Phosphatase Troponin I 0.146 H Pending Total Protein Albumin Globulin Lipase POC Glucose 12/31/18 16:29 POC Glucose 269 H Assessment/Plan All Active Problems (Last Updated 12/31/18 @ 11:32 by Francois Navarro MD) Chest pain (Acute) Hypotension (Acute) ESRD. HD monday is still here Chest pain. resolved now. troponins borderline. cardiology note reviewed.
[2018-12-31] MEDS: Calcium Acetate 667 MG Capsule 1334 MG PO (17:06)
[2018-12-31] MEDS: Insulin Lispro 100 UNIT/ML INSULN.PEN SC ×2 (17:06→22:14)
[2018-12-31] MEDS: Carvedilol 25 MG Tablet PO (17:06)
[2018-12-31] MEDS: Insulin Lispro 100 UNIT/ML INSULN.PEN 10 UNIT SC (17:07)
[2018-12-31] MEDS: Sodium Bicarbonate 650 MG Tablet PO ×2 (17:07→22:26)
[2018-12-31 22:06] LABS: Bedside Glucose 189 mg/dL (70-110)
[2018-12-31] MEDS: Pantoprazole Sodium 20 MG Tablet PO (22:07)
[2018-12-31] MEDS: Atorvastatin Calcium 20 MG Tablet PO (22:08)
[2018-12-31] MEDS: Ondansetron 4 MG/2 ML Vial IV (22:08)
[2018-12-31] MEDS: Heparin Injection (Vial) 5,000 UNIT/ML VIAL 5000 UNIT SC (22:08)
[2019-01-01] VITALS (7 sets, daily range): BP systolic 97–143; BP diastolic 23–63; PULSE 71–106; RESP 16–26; TEMP 36.3–36.6; O2SAT 96–100
[2019-01-01] MEDS: Ipratropium/Albuterol Sulfate 3 ML AMPUL.NEB INHALATION ×2 (01:06→06:43)
[2019-01-01] MEDS: HYDROcodone Bitartrate/Apap 5/325 Tablet PO (04:16)
--- NOTE | 2019-01-01 05:55 | EKG12_ITS ---
Test Reason : AM EKG Blood Pressure : / mmHG Vent. Rate : 076 BPM Atrial Rate : 076 BPM P-R Int : 124 ms QRS Dur : 090 ms QT Int : 418 ms P-R-T Axes : 059 070 194 degrees QTc Int : 470 ms Normal sinus rhythm T wave abnormality, consider lateral ischemia Prolonged QT Poor R- wave Progression Abnormal ECG Confirmed by CHEPE BEASLEY, KAITLYNN ([id number]), acquisition editor KEVIN WALTERS ([id number]) on 01/02/2019 11:41:39 AM Referred By: Francois Soler Confirmed By:KAITLYNN MO MD
[2019-01-01 06:18] LABS: Hematocrit 35.1 % (37-47); Hemoglobin 10.5 g/dl (12.0-15.0); Mean Corp Hgb Conc 29.9 g/gl (32-36); Mean Corpuscular Hgb 33.5 pg (27.0-32.0); Mean Corpuscular Volume 112.1 fL (81-99); Mean Platelet Vol. 9.6 fl (6.2-12.0); Platelet Count 95 K/mm3 (150-450); RBC Distribution Width CV 16.5 % (11.6-14.6); RBC Distribution Width SD 64.4 fl (35.1-43.9); Red Blood Count 3.13 M/mm3 (4.2-5.4); White Blood Count 5.4 K/mm3 (4.4-11.0)
[2019-01-01 06:19] LABS: Scan Indicated on CBC? Y/N NO
[2019-01-01 06:41] LABS: Anion Gap 9 (5-15); BUN 45 mg/dL (7-18); BUN/Creat Ratio 6.4 RATIO (10-20); Calcium,Total 9.3 mg/dL (8.5-10.1); Chloride 102 mmol/L (98-107); Creatinine, Serum 7.02 mg/dL (0.55-1.02); EST Glomerular Filtration Rate 7 mL/min (>60); Est Glom Filt Rate - Afr Amer 8 mL/min (>60); Estimated Creatinine Clearance 9.47 ml/min; Glucose 201 mg/dL (74-106); Potassium 5.3 mmol/L (3.5-5.1); Sodium Level 139 mmol/L (136-145)
[2019-01-01 06:55] LABS: Bedside Glucose 176 mg/dL (70-110)
--- NOTE | 2019-01-01 07:30 | PN.CARD_ITS ---
Subjectve: Patient seen and evaluated. No new changes. Objective: Vital Signs Temp Pulse Resp BP Pulse Ox 97.9 F 78 18 119/40 L 99 01/01/19 03:40 01/01/19 03:40 01/01/19 03:40 01/01/19 03:40 01/01/19 03:40 Oxygen Flow Rate (L/min) 3 Oxygen Delivery Method Nasal Cannula Weight: 208 lb 12.444 oz Body Mass Index (BMI) 33.7 Finger Stick Blood Glucose 118 Intake and Output for Last 24 Hours 12/30/18 12/31/18 01/01/19 23:59 23:59 23:59 Intake Total 930 / 930 100 / 100 Output Total 200 / 200 200 / 200 Balance 730 / 730 -100 / -100 General: Awake, Alert, Oriented x 3 HEENT: PERRL, EOMI, Sclera Non Icteric Neck: Supple, Good ROM, No Lymph Node Enlargement Lungs: Clear to auscultation Cardiovascular: Regular Rhythm, Normal S1, Normal S2, No Murmurs, No Rubs, No Gallops Vascular: No Carotid Bruits, Normal Femoral Pulses, Normal Radial Pulses, Normal Dorsalis Pedal Pulse, Normal Posterior Tibial Pulses Abdomen: Bowel Sounds Present, Soft, Non Tender, No HSM, No Organomegaly Extremities: No Cyanosis, No Clubbing, No edema Skin: No Rashes Lymphatic: No Lymph Node Enlargement Neurological: No Focal Motor or Sensory Deficit Psych/Mental Status: Appropriate 12/31/18 09:35: WBC 3.8 L, RBC 2.64 L, Hgb 8.9 L, Hct 28.6 L, MCV 108.3 H, MCH 33.7 H, MCHC 31.1 L, RDW 16.7 H, RDW Differential 64.6 H, Plt Count 70 L, MPV 8.8, Immature Gran % (Auto) 0.300, Neut % (Auto) 75.4 H, Lymph % (Auto) 18.2 L, [place] % (Auto) 4.7, Eos % (Auto) 1.1, Baso % (Auto) 0.3, Absolute Neuts (auto) 2.9, Total Counted Not Reportable 12/31/18 09:35: Sodium 137, Potassium 4.2, Chloride 97 L, Carbon Dioxide 33.0 H, Anion Gap 7, BUN 32 H, Creatinine 5.44 H, Est GFR (MDRD) Af Amer 11 L, Est GFR (MDRD) Non-Af 9 L, BUN/Creatinine Ratio 5.9 L, Glucose 246 H, Calcium 8.2 L, Troponin I 0.131 H 12/31/18 09:35: Total Bilirubin 0.30, Direct Bilirubin 0.15 12/31/18 12:55: Troponin I 0.146 H 12/31/18 16:05: Troponin I 0.135 H 01/01/19 05:50: WBC 5.4, RBC 3.13 L, Hgb 10.5 L, Hct 35.1 L, MCV 112.1 H, MCH 33.5 H, MCHC 29.9 L, RDW 16.5 H, RDW Differential 64.4 H, Plt Count 95 L, MPV 9.6 01/01/19 05:50: Sodium 139, Potassium 5.3 H, Chloride 102, Carbon Dioxide 28.0, Anion Gap 9, BUN 45 H, Creatinine 7.02 H, Est GFR (MDRD) Af Amer 8 L, Est GFR (MDRD) Non-Af 7 L, BUN/Creatinine Ratio 6.4 L, Glucose 201 H, Calcium 9.3 Rhythm: EKG: ECHO: Stress Test: Cardiac Cath: PCI: CT Surgery: Holter monitor: EPS: PPM: CXR: Chest CT Scan: Medical Necessity - Tobacco Use Smoking Status: Current every day smoker Tobacco Use: Cigarettes Assessment/Plan 1. Chest discomfort with abnormal cardiac enzymes. * Presents with chest discomfort with abnormal cardiac enzymes. She recently underwent stress testing within the last 3 months with no evidence of ischemia. In addition a cardiac catheterization within the last year also demonstrated previously placed stent. At this time with her level of troponin elevation I would say that we continue to manage her expectantly. * No new cardiac recommendations at this time. We will continue with the same medical therapy. * Stable from my standpoint for dialysis and discharge. 2. Coronary artery disease * She does have a history of coronary artery disease with previous stenting noted in the left anterior descending artery. Stress testing does not demonstrate any evidence of ischemia in this area in the last 3 months. We will continue with the same medical therapy. * 3. Risk factor modification * She should continue with risk factor modification with statin use and control of her blood pressure. * * Thank you for allowing me to participate in the care of your patient. Please don't hesitate to call if any issues arise
[2019-01-01] MEDS: Insulin Lispro 100 UNIT/ML INSULN.PEN SC (08:10)
[2019-01-01] MEDS: Insulin Lispro 100 UNIT/ML INSULN.PEN 10 UNIT SC (08:11)
[2019-01-01] MEDS: Calcium Acetate 667 MG Capsule 1334 MG PO (08:12)
[2019-01-01] MEDS: Aspirin 81 MG TAB.CHEW PO (08:12)
[2019-01-01] MEDS: Carvedilol 25 MG Tablet PO (08:13)
--- NOTE | 2019-01-01 09:18 | PCM.DC ---
- Discharge Diagnoses Current Active Problems: Current Active and Chronic Problems (Last Updated 12/31/18 @ 11:32 by Francois Soler MD) Chest pain (Acute) Hypotension (Acute) Elevated troponin I level (Chronic) Anemia due to chronic kidney disease (Chronic) You will use the following diet at home:: Calorie/Carbohydrate Controlled (specify 1200, 1400, etc) - 1800 bridger, Cardiac, Renal (restricted protein/sodium) Discharge Activity: Return to Normal Activity Weight Bearing Status: Weight bearing as tolerated Call your doctor if you observe: Fever of 101 or Higher, Shortness of breath, Dizziness, Fainting spells, Chest pain, Increased palpitations (irregular heartbeat), Uncontrolled pain Allergies/Adverse Reactions: Allergies latex Allergy (Verified 12/31/18 08:58) Rash prochlorperazine [From Compazine] Allergy (Verified 12/31/18 08:58) Unknown levofloxacin [From Levaquin] Adverse Reaction (Verified 12/31/18 08:58) PT CAN'T REMEMBER PT CAN'T REMEMBER metoclopramide HCl [From Reglan] Adverse Reaction (Verified 12/31/18 08:58) Nausea NSAIDS (Non-Steroidal Anti-Inflamma Adverse Reaction (Verified 12/31/18 08:58) kidney function oxycodone HCl [From Percocet] Adverse Reaction (Verified 12/31/18 08:58) HALLUCINATIONS Medications to take at Discharge Aspirin [Aspirin, Baby] 81 mg PO DAILY@0800 01/26/16 Calcium Acetate [Phoslo Gel Cap] 1,334 mg PO TIDCM 01/26/16 Ergocalciferol [Vitamin D] 50,000 unit PO MO 01/26/16 Insulin Aspart [Novolog Flexpen] 10 units SC TIDCM 01/26/16 Insulin Glargine,Hum.rec.anlog [Lantus] 5 unit SQ QHS 01/09/17 proMETHazine tablet [Phenergan tablet] 25 mg PO Q6H PRN PRN #10 tab 03/06/17 Sodium Bicarbonate 650 mg PO 4X/DAY 03/29/17 Atorvastatin Calcium [Lipitor] 20 mg PO QHS 05/26/18 Carvedilol [Coreg] 25 mg PO BID 05/26/18 Loperamide HCl [Imodium A-D] 2 mg PO TID PRN 05/26/18 Pantoprazole Sodium [Protonix] 20 mg PO BID 05/26/18 Clopidogrel Bisulfate [Plavix] 75 mg PO DAILY 07/01/18 ALPRAZolam [Xanax] 0.5 mg PO MOWEFR PRN 08/09/18 B Complex W-C No.20/Folic Acid [Nephrocaps Softgel] 1 mg PO DAILY 08/09/18 Fluoxetine HCl 40 mg PO DAILY 08/09/18 Lidocaine/Prilocaine HCl [Emla Cream W/Tegaderm] 1 applicatio TOPICAL MOWEFR 10/01/18 Nystatin Powder [Mycostatin Powder] 1 applic TOPICAL BID PRN 10/14/18 hydrOXYzine tablet [Atarax tablet] 10 mg PO MOWEFR 11/06/18 Melatonin 10 mg PO QHS PRN 12/14/18 Sodium Chloride 0.65% [[place] Nasal [place]] 2 spray NASAL TID PRN PRN spray.btl 12/14/18 Isosorbide Mononitrate [Imdur] 60 mg PO DAILY #30 tablet 01/01/19 Lisinopril [Zestril] 10 mg PO DAILY #30 tablet 01/01/19 The following prescriptions were given: Isosorbide Mononitrate [Imdur] 60 mg PO DAILY #30 tablet Lisinopril [Zestril] 10 mg PO DAILY #30 tablet Primary Care Physician: Christopher Foy MD [Primary Care Provider] - Please follow up with your Primary Care Physician in: 1 week. Test Results: Test results from this visit will be discussed in further detail at your follow-up appointment, if applicable. Please Follow Up With: Chey Martinez MD When: 1-2 weeks.
--- NOTE | 2019-01-01 09:45 | NURSING ---
pt walking in halls with student nurse. Able to complete full lap, no increase in SOB. Does state her legs are tired with that distance
[2019-01-01] MEDS: Clopidogrel Bisulfate 75 MG Tablet PO (10:19)
[2019-01-01] MEDS: FLUoxetine 20 MG Capsule 40 MG PO (10:19)
[2019-01-01] MEDS: Pantoprazole Sodium 20 MG Tablet PO (10:19)
[2019-01-01] MEDS: Sodium Bicarbonate 650 MG Tablet PO (10:20)
--- NOTE | 2019-01-01 10:36 | CASEMGMT ---
TAYLER notified patient that she does not have a Healthcare POA or Healthcare LW on file. She has a document giving her parents permission to seek treatment for her daughter should she not be available. Ale HOOVER
--- NOTE | 2019-01-01 11:20 | CASEMGMT ---
Addendum entered by Viktoria Herman 01/01/19 11:24: Cont. Pt has multiple co-morbidities and has dialysis at [facility],,Sat at 1120. Monik TEJADA CM Original Note: Pt was discharged before this RN CM could assess her. Chart review completed at this time. See assessment completed by this RN CM on 10/02/18. Pt has had multiple visits this year, most are ED visits with a few OBS admissions. Pt's CM thru [facility], states that pt has also had multiple visits to [facility] as well. Jaclyn's contact info [phone]. Pt has transportation set up thru [place] and has had [facility] in the past as well as been to multiple SNF's. Monik TEJADA CM
--- NOTE | 2019-01-01 14:26 | PCM.DC.SUM ---
Discharge Date and Diagnosis Date of Admission: 12/31/18 Date of Discharge: 01/01/19 - Primary Discharge Diagnosis #1 atypical chest pain/abnormal cardiac enzymes, ACS ruled out. #2 hypotension, improved. - Secondary Discharge Diagnosis Chronic Problems (Last Updated 12/31/18 @ 11:32 by Francois Soler MD) COPD (chronic obstructive pulmonary disease) (Chronic) Elevated troponin I level (Chronic) Anemia due to chronic kidney disease (Chronic) CAD (coronary artery disease) (Chronic) Stented coronary artery (Chronic 02/26/18) FFR of LAD 0.82; VIKY of mid LAD with 2.5 X 24 mm Promus Synergy, OM <50% stenosis per Dr. Magdaleno @ [facility] ESRD (end stage renal disease) on dialysis (Chronic) Decubitus ulcer, stage III (Chronic) Anemia, chronic disease (Chronic) GABRIEL (obstructive sleep apnea) (Chronic) Depression (Chronic) Anxiety (Chronic) HTN (hypertension) (Chronic) Nonischemic cardiomyopathy (Chronic) EF 45% per echo 07/01/2018 S/P repair of PDA (patent ductus arteriosus) (Chronic) At young age Diabetes mellitus type 1 (Chronic) Hyperlipidemia (Chronic) Obesity (BMI 30.0-34.9) (Chronic) Gastroparesis (Chronic) Hospital Course and Treatment Imaging Results: Clinical Impression(s) from Imaging Studies Chest X-Ray 12/31/18 09:10 IMPRESSION: Cardiomegaly and CHF. Blunting of the right costophrenic angle. 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 Tompkins, cardiology. Dr. Avendano, nephrology. Operations: None Procedures: EKG Summary of Care Provided: Patient seen and examined on the day of discharge and appeared to be stable to be discharged home. She mentioned that she is still having mild chest pressure but improved. Denies any more dizziness or lightheadedness. Her blood pressure improved, other vital signs are stable. The patient is a 43 year old F was sent from the dialysis center because of chest pain and she was admitted for evaluation. Patient had chest pain even the day before the admission at home which was atypical in presentation. Next day, she went to dialysis and during dialysis, she developed chest pain and she was sent to ED for evaluation. In the emergency department, her EKG revealed normal sinus rhythm without evidence of acute ischemic changes. EKG repeated and revealed normal sinus rhythm with T wave inversion in lateral chest leads. Her troponin was 0.131 but she has chronically elevated troponin secondary to ESRD. Her troponin was monitored and it remained minimally elevated and flat. Chest x-ray revealed questionable mild basilar luminary vascular congestion and her chest x-ray findings was unchanged from previous chest x-rays. There was no evidence of acute CHF. In the emergency room, her blood pressure was in the 60s systolic and patient was dizzy and lightheaded. She received 1 L of IV fluid bolus and her blood pressure improved. Cardiology consulted regarding the chest pain and the abnormal cardiac enzymes and recommended no further cardiac work-up at this point. Patient had stress test done 3 months ago which was unremarkable for new ischemia. On admission, lisinopril and isosorbide mononitrate held because of low blood pressure. Her blood pressure improved and the symptoms improved as well. On the day of discharge, her potassium was 5.3 and creatinine was 7.02. After discussion with nephrology, nephrology recommended that patient can be discharged safely home today and she can go for regular dialysis tomorrow morning. Patient discharged home in a stable medical condition, her antihypertensive medications adjusted as follow: Isosorbide mononitrate decrease down to 60 g p.o. daily, she was on 60 mill grams p.o. twice daily. Lisinopril decreased down to 10 mg daily, she was on 20 mg p.o. daily. Continued on Coreg, continued on her other previous home medication without any changes, recommended follow-up with PCP in 1 week, follow-up with nephrology in 1 to 2 weeks. - Physical Exam General: Alert, Oriented x3, Cooperative, No apparent distress HEENT: Atraumatic, PERRLA, EOMI, Normocephalic Oral: Moist Mucosa, No Gingival or Mucosal Lesions/ Ulcerations Neck: Supple, No JVD, Negative Carotid Bruits, Trachea Midline, Thyroid Normal Size and Texture Lungs: Clear to auscultation, No rhonchi, No wheeze, No rales, Diminished Cardiovascular: Regular rate, Regular Rhythm, Normal S1, Normal S2, PMI Normal Abdomen: Bowel Sounds Present, Soft, Non Tender, Non-Distended, No Hepato-splenomegaly, - - Colostomy bag in place. Extremities: No clubbing, No cyanosis, Edema - + Edema. Skin: No rashes, No breakdown Lymphatic: No Cervical, Supraclavicular, or Inguinal Adenopathy Neurological: Cranial nerves II-XII grossly intact, Neuro grossly intact Psych/Mental Status: Normal Affect, Appropriate Vital Signs Temp Pulse Resp BP Pulse Ox 97.4 F L 71 26 H 113/43 L 100 01/01/19 09:40 01/01/19 09:40 01/01/19 09:40 01/01/19 09:40 01/01/19 09:40 Oxygen Flow Rate (L/min) 3 Oxygen Delivery Method Nasal Cannula Weight: 208 lb 12.444 oz Body Mass Index (BMI) 33.7 Finger Stick Blood Glucose 118 Intake and Output for Last 24 Hours 12/30/18 12/31/18 01/01/19 23:59 23:59 23:59 Intake Total 930 / 930 100 / 100 Output Total 200 / 200 200 / 200 Balance 730 / 730 -100 / -100 Laboratory Tests Past 24 Hrs 12/31/18 01/01/19 01/01/19 16:05 05:50 05:50 WBC 5.4 RBC 3.13 L Hgb 10.5 L Hct 35.1 L MCV 112.1 H MCH 33.5 H MCHC 29.9 L RDW 16.5 H RDW Differential 64.4 H Plt Count 95 L MPV 9.6 Sodium 139 Potassium 5.3 H Chloride 102 Carbon Dioxide 28.0 Anion Gap 9 BUN 45 H Creatinine 7.02 H Estim Creat Clear Calc 9.47 Est GFR (MDRD) Af Amer 8 L Est GFR (MDRD) Non-Af 7 L BUN/Creatinine Ratio 6.4 L Glucose 201 H Calcium 9.3 Troponin I 0.135 H POC Glucose 01/01/19 12/31/18 12/31/18 06:48 22:00 16:29 POC Glucose 176 H 189 H 269 H Discharge Activity: Return to Normal Activity Weight Bearing Status: Weight bearing as tolerated Call your doctor if you observe: Fever of 101 or Higher, Shortness of breath, Dizziness, Fainting spells, Chest pain, Increased palpitations (irregular heartbeat), Uncontrolled pain Home Medications: Medications to take at Discharge Aspirin [Aspirin, Baby] 81 mg PO DAILY@0800 01/26/16 Calcium Acetate [Phoslo Gel Cap] 1,334 mg PO TIDCM 01/26/16 Ergocalciferol [Vitamin D] 50,000 unit PO MO 01/26/16 Insulin Aspart [Novolog Flexpen] 10 units SC TIDCM 01/26/16 Insulin Glargine,Hum.rec.anlog [Lantus] 5 unit SQ QHS 01/09/17 proMETHazine tablet [Phenergan tablet] 25 mg PO Q6H PRN PRN #10 tab 03/06/17 Sodium Bicarbonate 650 mg PO 4X/DAY 03/29/17 Atorvastatin Calcium [Lipitor] 20 mg PO QHS 05/26/18 Carvedilol [Coreg] 25 mg PO BID 05/26/18 Loperamide HCl [Imodium A-D] 2 mg PO TID PRN 05/26/18 Pantoprazole Sodium [Protonix] 20 mg PO BID 05/26/18 Clopidogrel Bisulfate [Plavix] 75 mg PO DAILY 07/01/18 ALPRAZolam [Xanax] 0.5 mg PO MOWEFR PRN 08/09/18 B Complex W-C No.20/Folic Acid [Nephrocaps Softgel] 1 mg PO DAILY 08/09/18 Fluoxetine HCl 40 mg PO DAILY 08/09/18 Lidocaine/Prilocaine HCl [Emla Cream W/Tegaderm] 1 applicatio TOPICAL MOWEFR 10/01/18 Nystatin Powder [Mycostatin Powder] 1 applic TOPICAL BID PRN 10/14/18 hydrOXYzine tablet [Atarax tablet] 10 mg PO MOWEFR 11/06/18 Melatonin 10 mg PO QHS PRN 12/14/18 Sodium Chloride 0.65% [[place] Nasal [place]] 2 spray NASAL TID PRN PRN spray.btl 12/14/18 Isosorbide Mononitrate [Imdur] 60 mg PO DAILY #30 tablet 01/01/19 Lisinopril [Zestril] 10 mg PO DAILY #30 tablet 01/01/19 Following Prescrptions Were Given to Patient: Isosorbide Mononitrate [Imdur] 60 mg PO DAILY #30 tablet Lisinopril [Zestril] 10 mg PO DAILY #30 tablet Primary Care Physician: Christopher Foy MD [Primary Care Provider] - Please follow up with your Primary Care Physician in: 1 week. Please Follow Up With: Chey Martinez MD When: 1-2 weeks. Please Follow Up With: Christopher Foy MD Disposition: Home Minutes spent on discharge:: 28 Patient Condition:: Stable Medical Necessity - Tobacco Use Smoking Status: Current every day smoker Tobacco Use: Cigarettes Meaningful Use Info Meaningful Use Diagnoses (Choose all that apply): None applicable Code Visit Inpatient E&M: 20198 Disch Hosp
--- NOTE | 2019-01-01 14:31 | DS.PCM_ITS ---
Discharge Date and Diagnosis Date of Admission: 12/31/18 Date of Discharge: 01/01/19 - Primary Discharge Diagnosis #1 atypical chest pain/abnormal cardiac enzymes, ACS ruled out. #2 hypotension, improved. - Secondary Discharge Diagnosis Chronic Problems (Last Updated 12/31/18 @ 11:32 by Francois Soler MD) COPD (chronic obstructive pulmonary disease) (Chronic) Elevated troponin I level (Chronic) Anemia due to chronic kidney disease (Chronic) CAD (coronary artery disease) (Chronic) Stented coronary artery (Chronic 02/26/18) FFR of LAD 0.82; VIKY of mid LAD with 2.5 X 24 mm Promus Synergy, OM <50% stenosis per Dr. Magdaleno @ [facility] ESRD (end stage renal disease) on dialysis (Chronic) Decubitus ulcer, stage III (Chronic) Anemia, chronic disease (Chronic) GABRIEL (obstructive sleep apnea) (Chronic) Depression (Chronic) Anxiety (Chronic) HTN (hypertension) (Chronic) Nonischemic cardiomyopathy (Chronic) EF 45% per echo 07/01/2018 S/P repair of PDA (patent ductus arteriosus) (Chronic) At young age Diabetes mellitus type 1 (Chronic) Hyperlipidemia (Chronic) Obesity (BMI 30.0-34.9) (Chronic) Gastroparesis (Chronic) Hospital Course and Treatment Imaging Results: Clinical Impression(s) from Imaging Studies Chest X-Ray 12/31/18 09:10 IMPRESSION: Cardiomegaly and CHF. Blunting of the right costophrenic angle. 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 Tompkins, cardiology. Dr. Avendano, nephrology. Operations: None Procedures: EKG Summary of Care Provided: Patient seen and examined on the day of discharge and appeared to be stable to be discharged home. She mentioned that she is still having mild chest pressure but improved. Denies any more dizziness or lightheadedness. Her blood pressure improved, other vital signs are stable. The patient is a 43 year old F was sent from the dialysis center because of chest pain and she was admitted for evaluation. Patient had chest pain even the day before the admission at home which was atypical in presentation. Next day, she went to dialysis and during dialysis, she developed chest pain and she was sent to ED for evaluation. In the emergency department, her EKG revealed normal sinus rhythm without evidence of acute ischemic changes. EKG repeated and revealed normal sinus rhythm with T wave inversion in lateral chest leads. Her troponin was 0.131 but she has chronically elevated troponin secondary to ESRD. Her troponin was monitored and it remained minimally elevated and flat. Chest x-ray revealed questionable mild basilar luminary vascular congestion and her chest x-ray findings was unchanged from previous chest x-rays. There was no evidence of acute CHF. In the emergency room, her blood pressure was in the 60s systolic and patient was dizzy and lightheaded. She received 1 L of IV fluid bolus and her blood pressure improved. Cardiology consulted regarding the chest pain and the abnormal cardiac enzymes and recommended no further cardiac work-up at this point. Patient had stress test done 3 months ago which was unremarkable for new ischemia. On admission, lisinopril and isosorbide mononitrate held because of low blood pressure. Her blood pressure improved and the symptoms improved as well. On the day of discharge, her potassium was 5.3 and creatinine was 7.02. After discussion with nephrology, nephrology recommended that patient can be discharged safely home today and she can go for regular dialysis tomorrow morning. Patient discharged home in a stable medical condition, her antihypertensive medications adjusted as follow: Isosorbide mononitrate decrease down to 60 g p.o. daily, she was on 60 mill grams p.o. twice daily. Lisinopril decreased down to 10 mg daily, she was on 20 mg p.o. daily. Continued on Coreg, continued on her other previous home medication without any changes, recommended follow-up with PCP in 1 week, follow-up with nephrology in 1 to 2 weeks. - Physical Exam General: Alert, Oriented x3, Cooperative, No apparent distress HEENT: Atraumatic, PERRLA, EOMI, Normocephalic Oral: Moist Mucosa, No Gingival or Mucosal Lesions/ Ulcerations Neck: Supple, No JVD, Negative Carotid Bruits, Trachea Midline, Thyroid Normal Size and Texture Lungs: Clear to auscultation, No rhonchi, No wheeze, No rales, Diminished Cardiovascular: Regular rate, Regular Rhythm, Normal S1, Normal S2, PMI Normal Abdomen: Bowel Sounds Present, Soft, Non Tender, Non-Distended, No Hepato- splenomegaly, - - Colostomy bag in place. Extremities: No clubbing, No cyanosis, Edema - + Edema. Skin: No rashes, No breakdown Lymphatic: No Cervical, Supraclavicular, or Inguinal Adenopathy Neurological: Cranial nerves II-XII grossly intact, Neuro grossly intact Psych/Mental Status: Normal Affect, Appropriate Vital Signs Temp Pulse Resp BP Pulse Ox 97.4 F L 71 26 H 113/43 L 100 01/01/19 09:40 01/01/19 09:40 01/01/19 09:40 01/01/19 09:40 01/01/19 09:40 Oxygen Flow Rate (L/min) 3 Oxygen Delivery Method Nasal Cannula Weight: 208 lb 12.444 oz Body Mass Index (BMI) 33.7 Finger Stick Blood Glucose 118 Intake and Output for Last 24 Hours 12/30/18 12/31/18 01/01/19 23:59 23:59 23:59 Intake Total 930 / 930 100 / 100 Output Total 200 / 200 200 / 200 Balance 730 / 730 -100 / -100 Laboratory Tests Past 24 Hrs 12/31/18 01/01/19 01/01/19 16:05 05:50 05:50 WBC 5.4 RBC 3.13 L Hgb 10.5 L Hct 35.1 L MCV 112.1 H MCH 33.5 H MCHC 29.9 L RDW 16.5 H RDW Differential 64.4 H Plt Count 95 L MPV 9.6 Sodium 139 Potassium 5.3 H Chloride 102 Carbon Dioxide 28.0 Anion Gap 9 BUN 45 H Creatinine 7.02 H Estim Creat Clear Calc 9.47 Est GFR (MDRD) Af Amer 8 L Est GFR (MDRD) Non-Af 7 L BUN/Creatinine Ratio 6.4 L Glucose 201 H Calcium 9.3 Troponin I 0.135 H POC Glucose 01/01/19 12/31/18 12/31/18 06:48 22:00 16:29 POC Glucose 176 H 189 H 269 H Discharge Activity: Return to Normal Activity Weight Bearing Status: Weight bearing as tolerated Call your doctor if you observe: Fever of 101 or Higher, Shortness of breath, Dizziness, Fainting spells, Chest pain, Increased palpitations (irregular heartbeat), Uncontrolled pain Home Medications: Medications to take at Discharge Aspirin [Aspirin, Baby] 81 mg PO DAILY@0800 01/26/16 Calcium Acetate [Phoslo Gel Cap] 1,334 mg PO TIDCM 01/26/16 Ergocalciferol [Vitamin D] 50,000 unit PO MO 01/26/16 Insulin Aspart [Novolog Flexpen] 10 units SC TIDCM 01/26/16 Insulin Glargine,Hum.rec.anlog [Lantus] 5 unit SQ QHS 01/09/17 proMETHazine tablet [Phenergan tablet] 25 mg PO Q6H PRN PRN #10 tab 03/06/17 Sodium Bicarbonate 650 mg PO 4X/DAY 03/29/17 Atorvastatin Calcium [Lipitor] 20 mg PO QHS 05/26/18 Carvedilol [Coreg] 25 mg PO BID 05/26/18 Loperamide HCl [Imodium A-D] 2 mg PO TID PRN 05/26/18 Pantoprazole Sodium [Protonix] 20 mg PO BID 05/26/18 Clopidogrel Bisulfate [Plavix] 75 mg PO DAILY 07/01/18 ALPRAZolam [Xanax] 0.5 mg PO MOWEFR PRN 08/09/18 B Complex W-C No.20/Folic Acid [Nephrocaps Softgel] 1 mg PO DAILY 08/09/18 Fluoxetine HCl 40 mg PO DAILY 08/09/18 Lidocaine/Prilocaine HCl [Emla Cream W/Tegaderm] 1 applicatio TOPICAL MOWEFR 10/01/18 Nystatin Powder [Mycostatin Powder] 1 applic TOPICAL BID PRN 10/14/18 hydrOXYzine tablet [Atarax tablet] 10 mg PO MOWEFR 11/06/18 Melatonin 10 mg PO QHS PRN 12/14/18 Sodium Chloride 0.65% [[place] Nasal [place]] 2 spray NASAL TID PRN PRN spray.btl 12/14/18 Isosorbide Mononitrate [Imdur] 60 mg PO DAILY #30 tablet 01/01/19 Lisinopril [Zestril] 10 mg PO DAILY #30 tablet 01/01/19 Following Prescrptions Were Given to Patient: Isosorbide Mononitrate [Imdur] 60 mg PO DAILY #30 tablet Lisinopril [Zestril] 10 mg PO DAILY #30 tablet Primary Care Physician: Christopher Foy MD [Primary Care Provider] - Please follow up with your Primary Care Physician in: 1 week. Please Follow Up With: Chey Martinez MD When: 1-2 weeks. Please Follow Up With: Christopher Foy MD Disposition: Home Minutes spent on discharge:: 28 Patient Condition:: Stable Medical Necessity - Tobacco Use Smoking Status: Current every day smoker Tobacco Use: Cigarettes Meaningful Use Info Meaningful Use Diagnoses (Choose all that apply): None applicable Code Visit Inpatient E&M: 16868 Disch Hosp
--- NOTE | 2019-01-02 14:58 | CASEMGMT ---
MALLORY SCHUMACHER Discharge Follow-Up Phone Call. Lace: 13 Strata: 4 Discharge Date: 01/01/19 Adm Dx: CP, Hypotension Attempted discharge follow-up phone call. Called the number listed on demographics sheet as being pt's contact number. No answer. The voicemail recording states that it is Courtney, which is pt's mother's name. MALLORY SCHUMACHER did not leave a message at this time d/t confidentiality and unsure if this is the correct number for pt. Yury JOVEL RN CM
== END 2019-01-01 10:29 | disposition home or self-care (01) | DRG 313 ==
LOC: ED 10:58 → PCU 01-01 06:55
PROVIDERS: Admitting Provider Hospitalist; Emergency Provider Emergency Medicine; Family Provider Family Medicine; PCP Family Medicine; Referring Provider Hospitalist; Visit Provider Hospitalist
DX: R07.89 Other chest pain (principal); N18.6 End stage renal disease; J96.10 Chronic respiratory failure, unspecified whether with hypoxia or hypercapnia; I12.0 Hypertensive chronic kidney disease with stage 5 chronic kidney disease or end stage renal disease; E10.22 Type 1 diabetes mellitus with diabetic chronic kidney disease; I95.9 Hypotension, unspecified; E78.5 Hyperlipidemia, unspecified; D63.1 Anemia in chronic kidney disease; Z99.81 Dependence on supplemental oxygen; F17.210 Nicotine dependence, cigarettes, uncomplicated; R74.8 Abnormal levels of other serum enzymes; I25.10 Atherosclerotic heart disease of native coronary artery without angina pectoris; Z99.2 Dependence on renal dialysis; Z93.3 Colostomy status; Z79.4 Long term (current) use of insulin; Z95.5 Presence of coronary angioplasty implant and graft; Z87.74 Personal history of (corrected) congenital malformations of heart and circulatory system; E66.9 Obesity, unspecified; Z68.33 Body mass index [BMI] 33.0-33.9, adult; K31.84 Gastroparesis; E10.43 Type 1 diabetes mellitus with diabetic autonomic (poly)neuropathy; F32.9 Major depressive disorder, single episode, unspecified; F41.9 Anxiety disorder, unspecified; G47.33 Obstructive sleep apnea (adult) (pediatric)
CPT/HCPCS: 36415; 71045; 80048; 80076; 82962; 83690; 84484; 85025; 85027; 93005; 94640; 99285; 99406; J7030; J7040; A4216; J2405

== ENCOUNTER 2019-01-25 07:06 | Inpatient (IN) | payer MEDICARE, SELFPAY ==
[2018-12-31 11:53] VITALS: BMI 33.7
[2019-01-25] VITALS (9 sets, daily range): BP systolic 110–161; BP diastolic 40–87; PULSE 66–80; RESP 16–20; TEMP 36.4–36.8; O2SAT 94–97; BMI 32.3
--- NOTE | 2019-01-25 08:40 | RAD_ITS ---
STUDY: X-RAY CHEST REASON FOR EXAM: Female, 43 years old. CHF. Shortness of breath. Weakness. TECHNIQUE: AP and lateral views of the chest. COMPARISON: Comparison is made with prior study dated December 31, 2018. FINDINGS: EKG electrodes are seen. There is evidence of CHF with bibasilar atelectasis and small bilateral effusions slightly worse on the right side. This has progressed as compared to prior study. There is mild cardiac enlargement. Normal mediastinum and latrell. Normal visualized pulmonary arteries. Normal visualized aortic arch and descending thoracic aorta. Normal visualized thoracic spine. Healed left rib fractures. There is no demonstrated abnormality of the visualized soft tissue structures of the upper abdomen. RAD/Chest PA and Lateral IMPRESSION: CHF with small bilateral pleural effusions and bibasilar atelectasis and/or infiltrates. Electronically Signed: Josh Hill, at 13:25 EDT , Service support ,
--- NOTE | 2019-01-25 08:51 | HP.PCM_ITS ---
Problem List (1) Acute on chronic systolic (congestive) heart failure Status: Acute (2) Metabolic alkalosis Status: Acute (3) Ischemic cardiomyopathy Status: Chronic Comment: EF in December 2018 on a stress test was 29% with ex tensive wall motion abnormalities (4) COPD (chronic obstructive pulmonary disease) Status: Chronic (5) Elevated troponin I level Status: Chronic (6) Anemia due to chronic kidney disease Status: Chronic Qualifiers: Chronic kidney disease stage: on chronic dialysis Qualified Code(s): N18.6 - End stage renal disease; D63.1 - Anemia in chronic kidney disease; Z99.2 - Dependence on renal dialysis (7) CAD (coronary artery disease) Status: Chronic Qualifiers: (8) Stented coronary artery Status: Chronic Comment: FFR of LAD 0.82; VIKY of mid LAD with 2.5 X 24 mm Promus Synergy, OM <50% stenosis per Dr. Magdaleno @ [facility] (9) ESRD (end stage renal disease) on dialysis Status: Chronic (10) Decubitus ulcer, stage III Status: Chronic (11) GABRIEL (obstructive sleep apnea) Status: Chronic (12) Depression Status: Chronic Qualifiers: (13) Anxiety Status: Chronic (14) HTN (hypertension) Status: Chronic Qualifiers: (15) S/P repair of PDA (patent ductus arteriosus) Status: Chronic Comment: At young age (14) Diabetes mellitus type 1 Status: Chronic Qualifiers: Diabetes mellitus complication status: with kidney complications Diabetes mellitus complication detail: with chronic kidney disease Chronic kidney disease stage: on chronic dialysis Qualified Code(s): E10.22 - Type 1 diabetes mellitus with diabetic chronic kidney disease; N18.6 - End stage renal disease; Z99.2 - Dependence on renal dialysis (17) Hyperlipidemia Status: Chronic Qualifiers: (18) Obesity (BMI 30.0-34.9) Status: Chronic (19) Gastroparesis Status: Chronic History of Present Illness Date of Admission: 01/25/19 Chief Complaint: Shortness of breath and lower extremity edema The patient is a 43 year old F with a past medical history of diabetes mellitus type 1, hypertension, hyperlipidemia, end-stage renal disease on hemodialysis, coronary artery disease with history of PCI, ischemic cardiomyopathy with a 29% ejection fraction on a chemical nuclear stress test in September 2018 with extensive wall motion abnormalities - in June 2018 she had global hypokinesis with a 45% ejection fraction), diastolic dysfunction stage II, obesity, anemia of chronic renal failure, anxiety/depression and gastroparesis who presented to the emergency department in [place] complaining of shortness of breath and swelling of her legs. She was in [facility] in early December for hypotension and CP. Chest x- ray was interpreted as congestive heart failure and she has bibasilar Rales. She was transferred to [facility] for treatment of acute on chronic systolic and diastolic congestive heart failure. All lab was personally reviewed. Serum bicarb is elevated at 38 and she is on bicarb tabs 4 times daily. She denies any recent dietary indiscretions. She does not follow a fluid restriction because this has not been a problem in the past. She was admitted to a monitored bed on PCU and [facility] has been notified that she will require dialysis. Past Medical History Past Medical History (Chronic Problems): Chronic Problems (Last Reviewed 01/25/19 @ 09:09 by Rosey Maya DO) Ischemic cardiomyopathy (Chronic) EF in December 2018 on a stress test was 29% with extensive wall motion abnormalities S/P PTCA (percutaneous transluminal coronary angioplasty) (Chronic) COPD (chronic obstructive pulmonary disease) (Chronic) Elevated troponin I level (Chronic) Anemia due to chronic kidney disease (Chronic) CAD (coronary artery disease) (Chronic) Stented coronary artery (Chronic 02/26/18) FFR of LAD 0.82; VIKY of mid LAD with 2.5 X 24 mm Promus Synergy, OM <50% stenosis per Dr. Magdaleno @ [facility] ESRD (end stage renal disease) on dialysis (Chronic) Decubitus ulcer, stage III (Chronic) GABRIEL (obstructive sleep apnea) (Chronic) Depression (Chronic) Anxiety (Chronic) HTN (hypertension) (Chronic) S/P repair of PDA (patent ductus arteriosus) (Chronic) At young age Diabetes mellitus type 1 (Chronic) Hyperlipidemia (Chronic) Obesity (BMI 30.0-34.9) (Chronic) Gastroparesis (Chronic) Medical History: Medical History (Last Reviewed 01/25/19 @ 09:09 by Rosey Maya DO) ESRD (end stage renal disease) on dialysis (Chronic) N18.6, Z99.2 Decubitus ulcer, stage III (Chronic) L89.93 GABRIEL (obstructive sleep apnea) (Chronic) G47.33 HTN (hypertension) (Chronic) I10 Diabetes mellitus type 1 (Chronic) Hyperlipidemia (Chronic) E78.5 Obesity (BMI 30.0-34.9) (Chronic) E66.9 Gastroparesis (Chronic) K31.84 Allergies latex Allergy (Verified 12/31/18 08:58) Rash prochlorperazine [From Compazine] Allergy (Verified 12/31/18 08:58) Unknown levofloxacin [From Levaquin] Adverse Reaction (Verified 12/31/18 08:58) PT CAN'T REMEMBER PT CAN'T REMEMBER metoclopramide HCl [From Reglan] Adverse Reaction (Verified 12/31/18 08:58) Nausea NSAIDS (Non-Steroidal Anti-Inflamma Adverse Reaction (Verified 12/31/18 08:58) kidney function oxycodone HCl [From Percocet] Adverse Reaction (Verified 12/31/18 08:58) HALLUCINATIONS Home Medications: Ambulatory Orders Medication Instructions Recorded Aspirin [Aspirin, Baby] 81 mg PO DAILY@0800 01/26/16 Calcium Acetate [Phoslo Gel Cap] 1,334 mg PO TIDCM 01/26/16 Ergocalciferol [Vitamin D] 50,000 unit PO MO 01/26/16 Insulin Aspart [Novolog Flexpen] 10 units SC TIDCM 01/26/16 Insulin Glargine,Hum.rec.anlog 5 unit SQ QHS 01/09/17 [Lantus] proMETHazine tablet [Phenergan 25 mg PO Q6H PRN PRN #10 tab 03/06/17 tablet] Sodium Bicarbonate 650 mg PO 4X/DAY 03/29/17 Atorvastatin Calcium [Lipitor] 10 mg PO QHS 05/26/18 Carvedilol [Coreg] 25 mg PO BID 05/26/18 Loperamide HCl [Imodium A-D] 2 mg PO TID PRN 05/26/18 Pantoprazole Sodium [Protonix] 20 mg PO BID 05/26/18 Clopidogrel Bisulfate [Plavix] 75 mg PO DAILY 07/01/18 ALPRAZolam [Xanax] 0.5 mg PO MOWEFR PRN 08/09/18 B Complex W-C No.20/Folic Acid 1 mg PO MOWEFR 08/09/18 [Nephrocaps Softgel] Fluoxetine HCl 40 mg PO DAILY 08/09/18 Lidocaine/Prilocaine HCl [[place] 1 applicatio TOPICAL MO10/01/18 Cream W/Tegaderm] Nystatin Powder [Mycostatin Powder] 1 applic TOPICAL BID PRN 10/14/18 hydrOXYzine tablet [Atarax tablet] 10 mg PO MOWEFR 11/06/18 Melatonin 10 mg PO QHS PRN 12/14/18 Sodium Chloride 0.65% [[place] Nasal 2 spray NASAL TID PRN PRN 12/14/18 [place]] spray.btl Isosorbide Mononitrate [Imdur] 60 mg PO DAILY #30 tablet 01/01/19 Lisinopril [Zestril] 10 mg PO DAILY #30 tablet 01/01/19 Hydrocodone/Acetaminophen [[place] 1 ea PO Q6H PRN PRN 01/25/19 5-325 Tablet] Surgical History: Surgical History (Last Reviewed 01/25/19 @ 09:10 by Rosey Maya DO) Stented coronary artery (Chronic) Onset Date: 02/26/18 Z95.5 FFR of LAD 0.82; VIKY of mid LAD with 2.5 X 24 mm Promus Synergy, OM <50% stenosis per Dr. Magdaleno @ [facility] S/P repair of PDA (patent ductus arteriosus) (Chronic) Z98.890, Z87.74 At young age Surgical History: angioplasty, appendectomy, hysterectomy - and BSO, - - c- sections, L breast I+D for abscess, fistula placement LUE, L ankle surgery, appendectomy, PDA repair. Excision pilonidal cyst ulcer about 4 years ago. Colostomy placed due to rectal abscess/wound, patent ductus repair, drug-eluting stent placement left anterior descending coronary artery February 2018. Psychiatric History: Anxiety, Depression [employer] History: No pertinent [employer] history Smoking Status: Former smoker - She quit a few months ago Tobacco Use: Non-smoker Alcohol: Rare Drugs: None - *Family History Maternal Family History: Family History (Last Reviewed 01/25/19 @ 09:10 by Rosey Maya DO) Father Diabetes Mother Kidney disease CVA (cerebral vascular accident) Hypertension Diabetes Cancer History Items: Cancer, COPD, Diabetes, Hypertension, Renal Disease, Stroke Paternal Family History: Family History (Last Reviewed 01/25/19 @ 09:10 by Rosey Maya DO) Father Diabetes Mother Kidney disease CVA (cerebral vascular accident) Hypertension Diabetes Cancer History Items: Diabetes Sibling Family History: Family History (Last Reviewed 01/25/19 @ 09:10 by Rosey Maya DO) Father Diabetes Mother Kidney disease CVA (cerebral vascular accident) Hypertension Diabetes Cancer History Items: Cancer, Diabetes Review of Systems Constitutional: Reports: Malaise. Denies: Chills, Fever, Weight Change HEENT: Denies: Head Aches, Sinus Congestion, Sinus Drainage Cardiovascular: Reports: Edema, Orthopnea. Denies: Chest Pain, Light Headedness, Palpitations, Syncope Respiratory: Reports: Cough - Dry, Shortness of Breath, Shortness of breath at rest, Shortness of breath upon exertion. Denies: Sputum production, Wheezing Gastrointestinal: Denies: Abdominal Pain, Nausea, Vomiting Genitourinary: Denies: Dysuria Musculoskeletal: Denies: Joint Pain, Joint Tenderness Skin: Reports: Pruritis. Denies: Jaundice, Rash Neurological: Denies: Numbness, Tingling, Focal weakness Psychiatric: Reports: Anxiety, Depression. Denies: Homicidal Ideations, Suicidal Ideations Endocrine: Denies: Change in Body Habitus Hematologic/ Lymphatic: Denies: Easy Bruising, Easy Bleeding, Hx of blood clot VTE Information - Inpt Only VTE Present on Admission: No VTE Mechan Device Prophylaxis: SCD's, Knee High JUANCHO Hose VTE Pharm Prophylaxis ordered?: Yes Patient Problems: Active and Suspected Problems (Last Reviewed 01/25/19 @ 09:09 by Rosey Maya DO) Acute on chronic systolic (congestive) heart failure (Acute) Metabolic alkalosis (Acute) - Physical Exam General: Alert, Oriented x3, Cooperative, Well developed, Well nourished HEENT: Atraumatic, Normocephalic Oral: No Gingival or Mucosal Lesions/ Ulcerations, Dry Mucosa Neck: Supple, No Nodes, Trachea Midline Lungs: No rhonchi, No wheeze, Rales - Both bases, - - She is not tachypneic and has no conversational dyspnea. There is no accessory muscle use. Cardiovascular: Regular rate, Regular Rhythm, Normal S1, Normal S2, No murmurs, No rub noted, - - Not tachycardic Abdomen: Bowel Sounds Present, Soft, Non Tender, Non-Distended, - - Colostomy in place Extremities: No clubbing, No cyanosis, Edema Skin: No rashes, - - Pruritic Musculoskeletal: No Tenderness to Palpation of Joints or Extremities Neurological: Cranial nerves II-XII grossly intact, Neuro grossly intact, - - Decreased sensation in the lower extremities in a stocking distribution secondary to diabetic polyneuropathy Psych/Mental Status: Normal Affect, Appropriate Vital Signs Temp Pulse Resp BP Pulse Ox 97.6 F L 76 20 H 161/87 H 97 01/25/19 07:53 01/25/19 08:06 01/25/19 07:53 01/25/19 07:53 01/25/19 07:53 Oxygen Flow Rate (L/min) 3 Oxygen Delivery Method Nasal Cannula Weight: 200 lb 2.876 oz Body Mass Index (BMI) 32.3 Finger Stick Blood Glucose 118 Assessment/Plan All Active Problems (Last Reviewed 01/25/19 @ 09:09 by Rosey Maya DO) Acute on chronic systolic (congestive) heart failure (Acute) Metabolic alkalosis (Acute) Chest pain (Resolved) Hypotension (Resolved) Impressions 1. Acute combined systolic and diastolic congestive heart failure on chronic congestive heart failure 2. Severe cardiomyopathy with recent stress test in September of 2018 showing a 29% ejection fraction and extensive wall motion abnormalities, down from 45% with global hypokinesis in June 2018. 3. Metabolic alkalosis-may be contributing to respiratory suppression 4. End-stage renal disease on hemodialysis 5. Anemia of chronic renal failure 6. Type 1 diabetes mellitus 7. Coronary artery disease with history of PCI. She underwent cardiac catheterization in February 2018 and had additional LAD dense with good result. She was left with diffuse small vessel left circumflex disease which was not amenable to stenting given the small size. 8. Hypertension 9. Hyperlipidemia 10. Cough-suspect secondary to acute congestive heart failure however patient states her daughter recently had the flu so we will check a respiratory panel Admitted to a monitored bed on PCU Consult [facility] for dialysis Repeat labs in the a.m. PA and lateral chest x-ray consult Dr. Green.....something seems to have occurred between June and September that caused the new wall motion abnormalities and the decline in the EF. Code Visit Inpatient E&M: 73811 Subs Hosp L3
[2019-01-25] MEDS: proMETHazine 25 MG Tablet PO (11:17)
[2019-01-25] MEDS: Calcium Acetate 667 MG Capsule 1334 MG PO ×2 (11:17→18:49)
[2019-01-25] MEDS: Folic Acid/Vitamin B Comp W-C 1 Capsule 1 CAP PO (11:17)
[2019-01-25] MEDS: Insulin Lispro 100 UNIT/ML INSULN.PEN 10 UNIT SC (11:20)
[2019-01-25 11:21] LABS: Bedside Glucose 114 mg/dL (70-110)
[2019-01-25] MEDS: HYDROcodone Bitartrate/Apap 5/325 Tablet PO ×2 (13:23→19:39)
[2019-01-25] MEDS: Heparin Injection (Vial) 5,000 UNIT/ML VIAL 5000 UNIT SC ×2 (13:23→22:04)
--- NOTE | 2019-01-25 14:34 | CASEMGMT ---
Social Work Pt states she does have a living will and health care POA which names her mother, Andreina Hull. These documents are not in pt medical record. SW requested pt bring documents in and she is agreeable. MIRZA Levin
--- NOTE | 2019-01-25 14:48 | CASEMGMT ---
RN CM Assessment Introduced role of RN CM to patient.? Patient is alert, oriented and able?to participate in RN CM Assessment. ?Care providers, pharmacy, and demographics verified. Presentation: Went to [facility] for c/o SOB & Swelling of legs, transferred to [facility] for Tx of AoC Systolic & Diastolic HF. Admit Dx: Acute CHF Re-Admit: Yes, Inpt 12/31-01/01/19 for Cp, Hypotension. Barriers/Issues: HD at [facility] M/W/F -:30am. [facility] CM Jaclyn [phone]. Patient states that she could use a shower chair, advised her to discuss with her doctor to obtain a script for one. States that she gets forgetful with taking her medications- states will take them and then won't remember if she took them, CM discussed Method of keeping track with Alarm and Notes with check meche on her phone- stated understanding and appeared receptive to suggestion. Patient states issue of getting 18 Portable Oxygen tanks/month and that it is taxing on her to go anywhere as she has to prepare her Dtr and then prepare herself with taking about 5 tanks with her to last when she is out. States d/t this that she stays home a lot. PCP: Christopher Foy Specialists: Cardio- Dr Magdaleno, Nephro- Dr Martinez, Ophth- Dr Buckley. Preferred Pharmacy: [facility] Insurance: [facility] Rx Benefit:?Yes ?LNOK: Sig. Other Mark Carrillo LW/HPOA: SW to address as POA in Chart with uncertainty Living Arrangements:?Lives with her Sig. Other and 10yo Dtr Isbella ADL?s: States lately she has been using a WC that was passed down from the family for the past 1.5 months. Transportation: [employer] or her Sig. Other, Sig. Other Mark on [place] DME: WC, Home O2 cont 2-3L- [employer], has a Rx for Glucometer, Neb, Cpap (states that she is waiting to hear from insurance about getting new CPAP machine) HHC: Past [facility] SNF: Multiple in past Goal: Home, does not think will have any additional needs. Denies questions/concerns. Aware CM remains available for any emerging needs. DC PLAN: Home with no anticipated needs identified at this time. MELANI Lomas
--- NOTE | 2019-01-25 15:46 | PCM.CONS.C ---
Problem List (1) CAD (coronary artery disease) Status: Chronic Qualifiers: (2) Stented coronary artery Status: Chronic Comment: FFR of LAD 0.82; VIKY of mid LAD with 2.5 X 24 mm Promus Synergy, OM <50% stenosis per Dr. Magdaleno @ [facility] (3) S/P repair of PDA (patent ductus arteriosus) Status: Chronic Comment: At young age (4) Ischemic cardiomyopathy Status: Chronic Comment: EF in December 2018 on a stress test was 29% with extensive wall motion abnormalities (5) Acute on chronic systolic (congestive) heart failure Status: Acute (6) Hyperlipidemia Status: Chronic Qualifiers: (7) HTN (hypertension) Status: Chronic Qualifiers: (8) Diabetes mellitus type 1 Status: Chronic Qualifiers: Diabetes mellitus complication status: with kidney complications Diabetes mellitus complication detail: with chronic kidney disease Chronic kidney disease stage: on chronic dialysis Qualified Code(s): E10.22 - Type 1 diabetes mellitus with diabetic chronic kidney disease; N18.6 - End stage renal disease; Z99.2 - Dependence on renal dialysis (9) ESRD (end stage renal disease) on dialysis Status: Chronic (10) COPD (chronic obstructive pulmonary disease) Status: Chronic Reason for Consult Date of Consultation: 01/25/19 History of Present Illness: The patient is a 43 year old white female with a past medical history of CAD, PCI, ischemic mediated cardiomyopathy, PDA closure, CHF-chronic systolic, hyperlipidemia, hypertension, diabetes mellitus, end-stage renal disease on chronic hemodialysis and COPD who presents for concerns of chest discomfort/heaviness with exertional activity, progressive shortness of breath/dyspnea especially with activity, and progressive fatigue. She notes that she has not felt well for some time now. She has not complained of acute orthopnea. She does note lower extremity peripheral pitting edema which is waxed and waned. There is been no report of near syncope or syncope. Based upon the aforementioned concerns she was brought to the hospital today for further evaluation and care. She states she has been taking her medications as prescribed. She does not recall missing any dialysis episodes. [] Past Medical History Allergies/Adverse Reactions: Allergies latex Allergy (Verified 12/31/18 08:58) Rash prochlorperazine [From Compazine] Allergy (Verified 12/31/18 08:58) Unknown levofloxacin [From Levaquin] Adverse Reaction (Verified 12/31/18 08:58) PT CAN'T REMEMBER PT CAN'T REMEMBER metoclopramide HCl [From Reglan] Adverse Reaction (Verified 12/31/18 08:58) Nausea NSAIDS (Non-Steroidal Anti-Inflamma Adverse Reaction (Verified 12/31/18 08:58) kidney function oxycodone HCl [From Percocet] Adverse Reaction (Verified 12/31/18 08:58) HALLUCINATIONS Home Medications: Ambulatory Orders Medication Instructions Recorded Aspirin [Aspirin, Baby] 81 mg PO DAILY@0800 01/26/16 Calcium Acetate [Phoslo Gel Cap] 1,334 mg PO TIDCM 01/26/16 Ergocalciferol [Vitamin D] 50,000 unit PO MO 01/26/16 Insulin Aspart [Novolog Flexpen] 10 units SC TIDCM 01/26/16 Insulin Glargine,Hum.rec.anlog 5 unit SQ QHS 01/09/17 [Lantus] proMETHazine tablet [Phenergan 25 mg PO Q6H PRN PRN #10 tab 03/06/17 tablet] Sodium Bicarbonate 650 mg PO 4X/DAY 03/29/17 Atorvastatin Calcium [Lipitor] 10 mg PO QHS 05/26/18 Carvedilol [Coreg] 25 mg PO BID 05/26/18 Loperamide HCl [Imodium A-D] 2 mg PO TID PRN 05/26/18 Pantoprazole Sodium [Protonix] 20 mg PO BID 05/26/18 Clopidogrel Bisulfate [Plavix] 75 mg PO DAILY 07/01/18 ALPRAZolam [Xanax] 0.5 mg PO MOWEFR PRN 08/09/18 B Complex W-C No.20/Folic Acid 1 mg PO MOWEFR 08/09/18 [Nephrocaps Softgel] Fluoxetine HCl 40 mg PO DAILY 08/09/18 Lidocaine/Prilocaine HCl [[place]mla 1 applicatio TOPICAL MOWEFR 10/01/18 Cream W/Tegaderm] Nystatin Powder [Mycostatin Powder] 1 applic TOPICAL BID PRN 10/14/18 hydrOXYzine tablet [Atarax tablet] 10 mg PO MOWEFR 11/06/18 Melatonin 10 mg PO QHS PRN 12/14/18 Sodium Chloride 0.65% [[place] Nasal 2 spray NASAL TID PRN PRN 12/14/18 [place]] spray.btl Isosorbide Mononitrate [Imdur] 60 mg PO DAILY #30 tablet 01/01/19 Lisinopril [Zestril] 10 mg PO DAILY #30 tablet 01/01/19 Hydrocodone/Acetaminophen [[place] 1 ea PO Q6H PRN PRN 01/25/19 5-325 Tablet] Past Medical History (Chronic Problems): Chronic Problems (Last Reviewed 01/25/19 @ 09:09 by Rosey Maya DO) Ischemic cardiomyopathy (Chronic) EF in December 2018 on a stress test was 29% with extensive wall motion abnormalities S/P PTCA (percutaneous transluminal coronary angioplasty) (Chronic) COPD (chronic obstructive pulmonary disease) (Chronic) Elevated troponin I level (Chronic) Anemia due to chronic kidney disease (Chronic) CAD (coronary artery disease) (Chronic) Stented coronary artery (Chronic 02/26/18) FFR of LAD 0.82; VIKY of mid LAD with 2.5 X 24 mm Promus Synergy, OM <50% stenosis per Dr. Magdaleno @ [facility] ESRD (end stage renal disease) on dialysis (Chronic) Decubitus ulcer, stage III (Chronic) GABRIEL (obstructive sleep apnea) (Chronic) Depression (Chronic) Anxiety (Chronic) HTN (hypertension) (Chronic) S/P repair of PDA (patent ductus arteriosus) (Chronic) At young age Diabetes mellitus type 1 (Chronic) Hyperlipidemia (Chronic) Obesity (BMI 30.0-34.9) (Chronic) Gastroparesis (Chronic) Surgical History: angioplasty, appendectomy, hysterectomy - and BSO, - - c-sections, L breast I+D for abscess, fistula placement LUE, L ankle surgery, appendectomy, PDA repair. Excision pilonidal cyst ulcer about 4 years ago. Colostomy placed due to rectal abscess/wound, patent ductus repair, drug-eluting stent placement left anterior descending coronary artery February 2018. 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 DIRECTOR history - *Family History Maternal Family History: Family History (Last Reviewed 01/25/19 @ 09:10 by Rosey Maya DO) Father Diabetes Mother Kidney disease CVA (cerebral vascular accident) Hypertension Diabetes Cancer History Items: Cancer, COPD, Diabetes, Hypertension, Renal Disease, Stroke Paternal Family History: Family History (Last Reviewed 01/25/19 @ 09:10 by Rosey Maya DO) Father Diabetes Mother Kidney disease CVA (cerebral vascular accident) Hypertension Diabetes Cancer History Items: Diabetes Sibling Family History: Family History (Last Reviewed 01/25/19 @ 09:10 by Rosey Maya DO) Father Diabetes Mother Kidney disease CVA (cerebral vascular accident) Hypertension Diabetes Cancer History Items: Cancer, Diabetes Smoking Status: Former smoker Tobacco Use: Non-smoker Alcohol: Rare Drugs: None Review of Systems - Review of Systems General: Reports: Fatigue. Denies: Fever, Night Sweats Cardiovascular: Reports: Chest Discomfort, Chest Discomfort with Exertion, Shortness of Breath, Shortness of Breath with Exertion, Peripheral Edema. Denies: Orthopnea, PND, Palpitations, Lightheadedness, Dizziness, Near Syncope, Syncope Respiratory: Reports: Shortness of Breath. Denies: Cough, Sputum Production, Hemoptysis Gastrointestinal: Denies: Hematemesis, Hematochezia, Melena Genitourinary: Denies: Dysuria, Hematuria Skin: Denies: Rash Subjectve: This is a 43-year-old white female who appears to be resting comfortably at the moment in no acute distress. Objective: Vital Signs Temp Pulse Resp BP Pulse Ox 97.6 F L 75 17 122/61 H 96 01/25/19 15:26 01/25/19 15:26 01/25/19 15:26 01/25/19 15:26 01/25/19 15:26 Oxygen Flow Rate (L/min) 3 Oxygen Delivery Method Nasal Cannula Weight: 200 lb 2.876 oz Body Mass Index (BMI) 32.3 Finger Stick Blood Glucose 118 Intake and Output for Last 24 Hours 01/23/19 01/24/19 01/25/19 23:59 23:59 23:59 Intake Total 120 / 120 Output Total 100 / 100 Balance General: Awake, Alert, Oriented x 3, Cooperative, No Acute Distress HEENT: Atraumatic, Normocephalic, PERRL, EOMI, Sclera Non Icteric Oral: Moist Mucosa Neck: Supple, Good ROM, No JVD Lungs: - - Diminished inspiratory effort Cardiovascular: Regular Rhythm, Normal S1, Normal S2 Abdomen: Bowel Sounds Present, Soft, Non Tender Extremities: - - Right ankle/foot wrapped in gauze Psych/Mental Status: Appropriate Rhythm: Sinus rhythm ECHO: 07-02-18: Moderately dilated left ventricle; moderate global hypokinesis of the left ventricle with an LVEF 45%; mild MR; trivial TR; trivial IA; estimated RV systolic pressure 22 mmHg; decreased diastolic compliance Stress Test: 10-02-18: Pharmacologic stress nuclear imaging study: Myocardial perfusion stress test with evidence of previous extensive anterior and apical and inferoapical infarct with no ischemia noted with a gated LVEF reported at 29% with notation of right ventricular dilatation. Cardiac Cath: 02-26-18: Left ventricle with global hypokinesis with an LVEF 55%; left main coronary normal; LAD with proximal mild calcification mid 75% stenosis; LCx with mild luminal irregularities; OM with mild to moderate luminal irregularities; RCA with mild calcification with mild luminal irregularities. PCI: FFR the LAD with subsequent PTCA/VIKY of the LAD with Promus synergy 2.5 x 24 mm stent CXR: Preliminary evaluation: Increased pulmonary vascularity; right-sided pleural effusion; please see official report Assessment/Plan 1. CAD status post PCI The patient has a history of underlying CAD and is undergone PCI as noted above. She has been noted on her most recent noninvasive studies, pharmacologic stress nuclear imaging study, to have evidence of previous AR but no obvious myocardial ischemia, but with diminished LV systolic function/LVEF. At the present time she presents with symptoms that are concerning for her underlying CAD process. She will continue to be monitored. She will continue medical therapy as deemed appropriate. She will be considered for reassessment of her left ventricular wall motion systolic function with echocardiographic study as well her coronary anatomy with diagnostic cardiac catheterization. In the interim she will continue medical management. 2. Status post PDA repair She has a history of a remote PDA repair. There has been no obvious objective findings or issues with raised with respect to this concern. 3. Ischemic mediated cardiomyopathy Based on her most recent studies of her left ventricle her overall LV systolic function/LVEF has decreased. This can be reassessed with echocardiographic studies. In the interim she will continue medical management. She will be considered for repeat diagnostic cardiac catheterization as noted above to reassess her coronary anatomy and its potential impact on her left ventricular wall motion systolic function. 4. Acute on chronic systolic mediated CHF She will continue medical therapy as she is able. She is also continuing dialysis therapy to assist with her volume support. 5. Hyperlipidemia She will continue medical management as deemed appropriate. 6. Hypertension Her blood pressures will be followed. Her medications can be adjusted as needed. 7. Diabetes mellitus She will continue with care of internal medicine. 8. End-stage renal disease on chronic hemodialysis She is undergoing evaluation care by nephrology. She is proceeding with hemodialysis today. 9. COPD She will continue evaluation care per internal medicine. Comment: The patient's case has been discussed and reviewed the patient, Dr. Maya, and Dr. Magdaleno. This note was generated using a voice recognition system and there may be incorrect words, spelling or punctuation that were not noted when reviewing the office note prior to saving.
--- NOTE | 2019-01-25 16:10 | NURSING ---
This RN received report from MALLORY Luque and will be taking over care
[2019-01-25 18:50] LABS: Bedside Glucose 68 mg/dL (70-110)
[2019-01-25] MEDS: Carvedilol 25 MG Tablet PO (18:50)
[2019-01-25] MEDS: Atorvastatin Calcium 10 MG Tablet PO (22:04)
[2019-01-25] MEDS: Pantoprazole Sodium 20 MG Tablet PO (22:05)
[2019-01-25 23:21] LABS: Bedside Glucose 97 mg/dL (70-110)
[2019-01-26] VITALS (11 sets, daily range): BP systolic 112–125; BP diastolic 40–57; PULSE 63–77; RESP 17–18; TEMP 36.7–36.8; O2SAT 93–100
[2019-01-26] MEDS: proMETHazine 25 MG Tablet PO ×3 (03:12→22:14)
[2019-01-26] MEDS: HYDROcodone Bitartrate/Apap 5/325 Tablet PO ×3 (03:12→20:11)
[2019-01-26] MEDS: Heparin Injection (Vial) 5,000 UNIT/ML VIAL 5000 UNIT SC ×3 (05:40→22:09)
--- NOTE | 2019-01-26 05:55 | EKG12_ITS ---
Test Reason : AM EKG Blood Pressure : / mmHG Vent. Rate : 068 BPM Atrial Rate : 068 BPM P-R Int : 128 ms QRS Dur : 090 ms QT Int : 446 ms P-R-T Axes : 043 065 201 degrees QTc Int : 474 ms Normal sinus rhythm Possible Left atrial enlargement Nonspecific T wave abnormality Prolonged QT Poor R wave progression Abnormal ECG Confirmed by CHEPE BEASLEY, KAITLYNN ([id number]), tape editor SHANIA SOLITARIO ([id number]) on 01/31/2019 1:14:27 PM Referred By: Alex Ravi Confirmed By:KAITLYNN MO MD
--- NOTE | 2019-01-26 06:31 | ECHOD_ITS ---
Reason For Study: CHF Procedure This was a 2D Doppler, Color Flow transthoracic echocardiogram. The study was technically difficult. Definity was attempted. IV infiltrated. New IV access was not available at time of study. Exam performed portable in patient room. Left Ventricle Mildly dilated left ventricle. Moderate segmental systolic dysfunction (see wall motion). The estimated ejection fraction is 35 %. There is evidence of diastolic dysfunction. Mid-Anterior : Hypokinetic. Mid-Lateral : Hypokinetic. Mid-Posterior: Hypokinetic. Mid-Inferior: Hypokinetic. Mid- inferoseptal : Hypokinetic. Mid-anteroseptal : Hypokinetic. Anterior [place] : Akinetic. Inferior [place] : Akinetic. Lateral [place] : Not visualized. Septal [place] : Not visualized. Right Ventricle Normal RV size. Normal systolic function. Atria The left atrium is mildly enlarged. Normal right atrium. No doppler evidence for ASD. Mitral Valve There is no mitral annular calcification. Mild focal mitral valve calcification of the anterior leaflet. Mild (1+) mitral valve insufficiency. Tricuspid Valve Mild focal calcification of the tricuspid valve. Mild tricuspid valve insufficiency. Right ventricular systolic pressure estimated to be 42 mmHg. Aortic Valve Trisinus/trileaflet aortic valve. Normal aortic valve. Pulmonic Valve The pulmonic valve is not well visualized. Mild (1+) pulmonic valve insufficiency. Great Vessels The aortic root is not well visualized. Pericardium/Pleural No pericardial effusion. MMode/2D Measurements & Calculations LVIDd: 5.9 cm IVSd: 1.2 cm LAV(MOD-bp): 79.1 ml LVIDs: 4.0 cm LVPWd: 1.2 cm LAV(MOD-bp) Indexed: 39.5 ml/m2 RVDd: 3.0 cm FS: 32.2 % LAV(MOD-sp2): 67.4 ml LAV(MOD-sp4): 65.4 ml LA dimension(2D): 3.7 cm LA A4 area: 21.8 cm2 RA A4 area: 16.3 cm2 Time Measurements MV dec time: 0.22 sec Doppler Measurements & Calculations MV E max lópez: 101.6 cm/sec Lat Peak E' López: 3.3 cm/sec Med Peak E' López: 3.2 cm/sec MV A max lópez: 45.9 cm/sec E/E' lat: 30.9 E/E' med: 31.8 MV E/A: 2.2 Ao V2 max: 109.9 cm/sec LV V1 max: 76.2 cm/sec PA V2 max: 83.6 cm/sec Ao max P.8 mmHg LV V1 max P.3 mmHg TR max lópez: 262.0 cm/sec TR max P.4 mmHg Interpretation Summary The study was technically difficult. Moderate segmental systolic dysfunction (see wall motion). The estimated ejection fraction is 35 %. The left atrium is mildly enlarged. Mild focal mitral valve calcification of the anterior leaflet. Mild (1+) mitral valve insufficiency. Mild focal calcification of the tricuspid valve. Mild tricuspid valve insufficiency. Mild (1+) pulmonic valve insufficiency. Right ventricular systolic pressure estimated to be 42 mmHg. There is evidence of diastolic dysfunction. Ordering Physician: Rosey Maya Referring Physician: Christopher Foy Performed By: Polly Vasquez, TEO, RVT
[2019-01-26 06:45] LABS: Bedside Glucose 115 mg/dL (70-110)
[2019-01-26 07:08] LABS: Anion Gap 7 (5-15); BUN 21 mg/dL (7-18); BUN/Creat Ratio 4.9 RATIO (10-20); Calcium,Total 8.9 mg/dL (8.5-10.1); Chloride 99 mmol/L (98-107); EST Glomerular Filtration Rate 12 mL/min (>60); Est Glom Filt Rate - Afr Amer 14 mL/min (>60); Estimated Creatinine Clearance 15.47 ml/min; Glucose 141 mg/dL (74-106); Phosphorus 3.7 mg/dL (2.5-4.9); Potassium 4.3 mmol/L (3.5-5.1); Sodium Level 140 mmol/L (136-145)
[2019-01-26] MEDS: Aspirin 81 MG TAB.CHEW PO (09:01)
[2019-01-26] MEDS: Insulin Lispro 100 UNIT/ML INSULN.PEN 10 UNIT SC ×3 (09:01→16:58)
[2019-01-26] MEDS: Carvedilol 25 MG Tablet PO ×2 (09:01→16:58)
[2019-01-26] MEDS: Clopidogrel Bisulfate 75 MG Tablet PO (09:02)
[2019-01-26] MEDS: Lisinopril 10 MG Tablet PO (09:02)
[2019-01-26] MEDS: Isosorbide Mononitrate 60 MG Tablet PO (09:02)
[2019-01-26] MEDS: Pantoprazole Sodium 20 MG Tablet PO ×2 (09:02→22:10)
[2019-01-26] MEDS: Calcium Acetate 667 MG Capsule 1334 MG PO ×3 (09:02→16:58)
[2019-01-26] MEDS: FLUoxetine 20 MG Capsule 40 MG PO (09:02)
--- NOTE | 2019-01-26 09:24 | PCM.PROGNOTE ---
Patient Problems: Active and Suspected Problems (Last Reviewed 01/25/19 @ 09:09 by Rosey Maya DO) Acute on chronic systolic (congestive) heart failure (Acute) Metabolic alkalosis (Acute) Subjective: All events of the past 24 hours of been reviewed. She is afebrile. Vital signs are stable. She is 93 to 100% saturated on a 3 L nasal cannula. She had hemodialysis on 01/25/2019 and had 4 L removed. All lab has been personally reviewed. Potassium is 4.3 today and the serum bicarb is 34, down from 38 at admission. Blood sugars are well controlled. She had a low blood sugar of 68 prior to supper yesterday but it improved with eating. Fasting blood sugar today is 115. Phosphorus is 3.7. ABG was attempted but after 3 failed attempts we discontinued the order. I reviewed Dr. Green's note. Objective: PHYSICAL EXAM: GENERAL: alert, oriented X 3, Cooperative, NAD ORAL: moist mucosa, no mucosal lesions NECK: No JVD, supple, trachea midline LUNGS: CTA, rales completely resolved with HD and removing 4 Liters of fluid HEART: RRR, Normal S1 and S2, no rub, no gallop ABDOMEN: soft, NT, ND, BS present, no guarding with palpation EXTREMITIES: no edema, no cyanosis, no calf tenderness SKIN: No rashes, no breakdown NEUROLOGIC: no focal neurologic deficits PSYCH: appropriate, normal affect, pleasant - Physical Exam Vital Signs Temp Pulse Resp BP Pulse Ox 98.3 F 77 17 125/57 H 100 01/26/19 08:32 01/26/19 08:32 01/26/19 08:32 01/26/19 08:32 01/26/19 08:32 Oxygen Flow Rate (L/min) 3 Oxygen Delivery Method Nasal Cannula Weight: 200 lb 6.403 oz Body Mass Index (BMI) 32.3 Finger Stick Blood Glucose 118 Intake and Output for Last 24 Hours 01/24/19 01/25/19 01/26/19 23:59 23:59 23:59 Intake Total 240 / 240 280 / 280 Output Total 200 / 200 Balance 40 / 40 280 / 280 Microbiology Past 72 Hours 01/25/19 23:50 Streptococcus pneumoniae Antigen (M - Final Urine Catheter - Catheter 01/25/19 23:50 Legionella Antigen - Final Urine Catheter - Catheter 01/25/19 10:11 Respiratory Panel (PCR) - Final Mucosa - Nasopharyngeal Laboratory Tests Past 24 Hrs 01/26/19 01/26/19 05:20 05:20 Sodium 140 Potassium 4.3 Chloride 99 Carbon Dioxide 34.0 H Anion Gap 7 BUN 21 H Creatinine 4.30 H Estim Creat Clear Calc 15.47 Est GFR (MDRD) Af Amer 14 L Est GFR (MDRD) Non-Af 12 L BUN/Creatinine Ratio 4.9 L Glucose 141 H Calcium 8.9 Phosphorus 3.7 Cancelled POC Glucose 01/26/19 01/25/19 01/25/19 06:39 21:59 18:44 POC Glucose 115 H 97 68 L 01/25/19 11:14 POC Glucose 114 H Medical Necessity - Tobacco Use Smoking Status: Former smoker Tobacco Use: Non-smoker Assessment/Plan All Active Problems (Last Reviewed 01/25/19 @ 09:09 by Rosey Maya DO) Acute on chronic systolic (congestive) heart failure (Acute) Metabolic alkalosis (Acute) Chest pain (Resolved) Hypotension (Resolved) Impressions 1. Acute combined systolic and diastolic congestive heart failure on chronic congestive heart failure 2. Severe cardiomyopathy with recent stress test in September of 2018 showing a 29% ejection fraction and extensive wall motion abnormalities, down from 45% with global hypokinesis in June 2018. 3. Metabolic alkalosis-may be contributing to respiratory suppression 4. End-stage renal disease on hemodialysis 5. Anemia of chronic renal failure 6. Type 1 diabetes mellitus 7. Coronary artery disease with history of PCI. She underwent cardiac catheterization in February 2018 and had additional LAD dense with good result. She was left with diffuse small vessel left circumflex disease which was not amenable to stenting given the small size. 8. Hypertension 9. Hyperlipidemia 10. Cough-suspect secondary to acute congestive heart failure however patient states her daughter recently had the flu so we will check a respiratory panel Legionella, streptococcal antigens were negative and respiratory panel was also negative Cough has resolved with hemodialysis and removal of 4 L of fluid Discussed with Dr. Green and the plan is for Dr. Magdaleno to cath on Monday Code Visit Inpatient E&M: 20023 Subs Hosp L2
[2019-01-26 11:16] LABS: Bedside Glucose 118 mg/dL (70-110)
[2019-01-26] MEDS: ALPRAZolam 0.5 MG Tablet PO (17:03)
[2019-01-26 17:11] LABS: Bedside Glucose 202 mg/dL (70-110)
--- NOTE | 2019-01-26 17:19 | PN.CARD_ITS ---
Subjectve: The patient denies ongoing chest discomfort. She denies any acute shortness of breath. She states that she has been more short of breath and dyspneic especially with activity recently. Objective: Vital Signs Temp Pulse Resp BP Pulse Ox 98.1 F 68 17 112/40 L 98 01/26/19 14:25 01/26/19 15:27 01/26/19 14:25 01/26/19 14:25 01/26/19 14:25 Oxygen Flow Rate (L/min) 3 Oxygen Delivery Method Nasal Cannula Weight: 200 lb 6.403 oz Body Mass Index (BMI) 32.3 Finger Stick Blood Glucose 118 Intake and Output for Last 24 Hours 01/24/19 01/25/19 01/26/19 23:59 23:59 23:59 Intake Total 240 / 240 760 / 760 Output Total 200 / 200 Balance 40 / 40 760 / 760 General: Awake, Alert, Oriented x 3, Cooperative, No Acute Distress HEENT: Atraumatic, Normocephalic, PERRL, EOMI, Sclera Non Icteric Oral: Moist Mucosa Neck: Supple, Good ROM, No JVD Lungs: Clear to auscultation Cardiovascular: Regular Rhythm, Normal S1, Normal S2 Abdomen: Bowel Sounds Present, Soft, Non Tender Psych/Mental Status: Appropriate 01/26/19 05:20: Sodium 140, Potassium 4.3, Chloride 99, Carbon Dioxide 34.0 H, Anion Gap 7, BUN 21 H, Creatinine 4.30 H, Est GFR (MDRD) Af Amer 14 L, Est GFR (MDRD) Non-Af 12 L, BUN/Creatinine Ratio 4.9 L, Glucose 141 H, Calcium 8.9, Phosphorus 3.7 01/26/19 05:20: Phosphorus Cancelled Rhythm: ECHO: Interpretation Summary The study was technically difficult. Moderate segmental systolic dysfunction (see wall motion). The estimated ejection fraction is 35 %. The left atrium is mildly enlarged. Mild focal mitral valve calcification of the anterior leaflet. Mild (1+) mitral valve insufficiency. Mild focal calcification of the tricuspid valve. Mild tricuspid valve insufficiency. Mild (1+) pulmonic valve insufficiency. Right ventricular systolic pressure estimated to be 42 mmHg. There is evidence of diastolic dysfunction. Medical Necessity - Tobacco Use Smoking Status: Former smoker Tobacco Use: Non-smoker Assessment/Plan 1. CAD status post PCI The patient has a history of underlying CAD and is undergone PCI as noted above. She has been noted on her most recent noninvasive studies, pharmacologic stress nuclear imaging study, to have evidence of previous CT but no obvious myocardial ischemia, but with diminished LV systolic function/LVEF. At the present time she presents with symptoms that are concerning for her underlying CAD process. She will continue to be monitored. She will continue medical therapy as deemed appropriate. She has undergone reassessment with a transthoracic echocardiogram. The results are as noted above. The tentative plan is for further evaluation of her coronary anatomy with di agnostic cardiac catheterization on 01-28-[address] Magdaleno. In the interim she will continue medical management. 2. Status post PDA repair She has a history of a remote PDA repair. There has been no obvious objective findings or issues with raised with respect to this concern. 3. Ischemic mediated cardiomyopathy Based on her most recent studies of her left ventricle her overall LV systolic function/LVEF has decreased. This can be reassessed with echocardiographic studies. In the interim she will continue medical management. She will be considered for repeat diagnostic cardiac catheterization as noted above to reassess her coronary anatomy and its potential impact on her left ventricular wall motion systolic function. 4. Acute on chronic systolic mediated CHF She will continue medical therapy as she is able. She is also continuing dialysis therapy to assist with her volume support. 5. Hyperlipidemia She will continue medical management as deemed appropriate. 6. Hypertension Her blood pressures will be followed. Her medications can be adjusted as needed. 7. Diabetes mellitus She will continue with care of internal medicine. 8. End-stage renal disease on chronic hemodialysis She is undergoing evaluation care by nephrology. She is proceeding with hemodialysis today. 9. COPD She will continue evaluation care per internal medicine. Comment: The patient's case has been discussed and reviewed the patient and her family members present. This note was generated using a voice recognition system and there may be incorrect words, spelling or punctuation that were not noted when reviewing the office note prior to saving.
--- NOTE | 2019-01-26 18:21 | PCM.CONS.R ---
Problem List (1) Elevated troponin I level Status: Chronic (2) ESRD (end stage renal disease) on dialysis Status: Chronic Consultation - Renal PCP/ Referring MD: Requesting physician: [] Primary care physician: Christopher Foy MD - History of Present Illness History of Present Illness: The patient is a 43 year old F PMH of ESRD and CHF. Pt is MWF. Pt missed last HD session. pt presented with SOB . She has admitted yesterday with CHF I was contacted yesterday and patient had HD session while inpatient with 4 L UF Pt feels better today. Plan is for cardiac cath Monday ROS: 12 systems review is negative[] - Allergies Allergies: Allergies latex Allergy (Verified 12/31/18 08:58) Rash prochlorperazine [From Compazine] Allergy (Verified 12/31/18 08:58) Unknown levofloxacin [From Levaquin] Adverse Reaction (Verified 12/31/18 08:58) PT CAN'T REMEMBER PT CAN'T REMEMBER metoclopramide HCl [From Reglan] Adverse Reaction (Verified 12/31/18 08:58) Nausea NSAIDS (Non-Steroidal Anti-Inflamma Adverse Reaction (Verified 12/31/18 08:58) kidney function oxycodone HCl [From Percocet] Adverse Reaction (Verified 12/31/18 08:58) HALLUCINATIONS - Current Medications Current Medications: Current Medications Hydrocodone Bitart/Acetaminophen ([place] 5mg-325mg) 1 tablet PO Q6H PRN PRN PRN Reason: SEVERE PAIN (6-10/10) Last Admin: 01/26/19 09:50 Dose: 1 tablet Documented by: Alprazolam (Xanax) 0.5 mg PO Q12H PRN PRN PRN Reason: ANXIETY Last Admin: 01/26/19 17:03 Dose: 0.5 mg Documented by: Aspirin (Aspirin, Baby) 81 mg PO DAILY@0800 [facility] Last Admin: 01/26/19 09:01 Dose: 81 mg Documented by: Atorvastatin Calcium (Lipitor) 10 mg PO QHS [facility] Last Admin: 01/25/19 22:04 Dose: 10 mg Documented by: Calcium Acetate (Phoslo Gel Cap) 1,334 mg PO TIDCM [facility] Last Admin: 01/26/19 16:58 Dose: 1,334 mg Documented by: Carvedilol (Coreg) 25 mg PO BIDCM [facility] Last Admin: 01/26/19 16:58 Dose: 25 mg Documented by: Clopidogrel Bisulfate (Plavix) 75 mg PO DAILY [facility] Last Admin: 01/26/19 09:02 Dose: 75 mg Documented by: Dextrose (D50w Syringe) 0 gm IV X1 PRN; Protocol PRN Reason: Hypoglycemia Ergocalciferol (Vitamin D) 50,000 unit PO MO [facility] Fluoxetine HCl (Prozac) 40 mg PO DAILY [facility] Last Admin: 01/26/19 09:02 Dose: 40 mg Documented by: Glucagon () 1 mg IM .X1 PRN PRN Reason: Hypoglycemia Heparin Sodium (Porcine) (Heparin Na) 5,000 unit SC Q8 [facility] Last Admin: 01/26/19 14:59 Dose: 5,000 unit Documented by: Hydroxyzine HCl (Atarax Tablet) 10 mg PO MoWeFr@1400 [facility] Last Admin: 01/25/19 13:23 Dose: Not Given Documented by: Insulin Glargine (Lantus (Bkc)) 5 units SC HS [facility] Last Admin: 01/25/19 22:04 Dose: 5 units Documented by: Insulin Human Lispro (Humalog Kwikpen (Bk)) 10 unit SC TIDCM [facility] Last Admin: 01/26/19 16:58 Dose: 10 units Documented by: Isosorbide Mononitrate (Imdur) 60 mg PO DAILY [facility] Last Admin: 01/26/19 09:02 Dose: 60 mg Documented by: Lidocaine/Prilocaine (Emla Cream W/Tegaderm) 1 gm [facility]ICAL [facility]; Protocol Last Admin: 01/25/19 13:23 Dose: Not Given Documented by: Lisinopril (Zestril) 10 mg PO DAILY [facility] Last Admin: 01/26/19 09:02 Dose: 10 mg Documented by: Loperamide HCl (Imodium) 2 mg PO TID PRN PRN Reason: LOOSE STOOLS Melatonin (Melatonin) 10 mg PO QHS PRN PRN Reason: SLEEP Multivit/Ca Carb/B Cmplx/FA/Prenat (Nephrocaps, Renaphro) 1 capsule PO MOWEFR [facility] Last Admin: 01/25/19 11:17 Dose: 1 capsule Documented by: Nystatin (Mycostatin Powder) 1 applic TOPICAL BID PRN; Protocol PRN Reason: skin issues Pantoprazole Sodium (Protonix) 20 mg PO BID [facility] Last Admin: 01/26/19 09:02 Dose: 20 mg Documented by: Promethazine HCl (Phenergan Tablet) 25 mg PO Q6H PRN PRN PRN Reason: NAUSEA Last Admin: 01/26/19 09:50 Dose: 25 mg Documented by: Sodium Chloride () 10 - 40 ml IV UD PRN PRN Reason: SALINE FLUSH Sodium Chloride ([place] Nasal [place]) 2 spray NASAL TID PRN PRN PRN Reason: NASAL DRYNESS - Past Medical History Past Medical History (Chronic Problems): Chronic Problems (Last Reviewed 01/25/19 @ 09:09 by Rosey Maya DO) Ischemic cardiomyopathy (Chronic) EF in December 2018 on a stress test was 29% with extensive wall motion abnormalities S/P PTCA (percutaneous transluminal coronary angioplasty) (Chronic) COPD (chronic obstructive pulmonary disease) (Chronic) Elevated troponin I level (Chronic) Anemia due to chronic kidney disease (Chronic) CAD (coronary artery disease) (Chronic) Stented coronary artery (Chronic 02/26/18) FFR of LAD 0.82; VIKY of mid LAD with 2.5 X 24 mm Promus Synergy, OM <50% stenosis per Dr. Magdaleno @ [facility] ESRD (end stage renal disease) on dialysis (Chronic) Decubitus ulcer, stage III (Chronic) GABRIEL (obstructive sleep apnea) (Chronic) Depression (Chronic) Anxiety (Chronic) HTN (hypertension) (Chronic) S/P repair of PDA (patent ductus arteriosus) (Chronic) At young age Diabetes mellitus type 1 (Chronic) Hyperlipidemia (Chronic) Obesity (BMI 30.0-34.9) (Chronic) Gastroparesis (Chronic) - Past Surgical History Surgical History: angioplasty, appendectomy, hysterectomy - and BSO, - - c-sections, L breast I+D for abscess, fistula placement LUE, L ankle surgery, appendectomy, PDA repair. Excision pilonidal cyst ulcer about 4 years ago. Colostomy placed due to rectal abscess/wound, patent ductus repair, drug-eluting stent placement left anterior descending coronary artery February 2018. - Social History Smoking Status: Former smoker Alcohol: Rare Drugs: None - Family History Maternal Family History: Family History (Last Reviewed 01/25/19 @ 09:10 by Rosey Maya DO) Father Diabetes Mother Kidney disease CVA (cerebral vascular accident) Hypertension Diabetes Cancer History Items: Cancer, COPD, Diabetes, Hypertension, Renal Disease, Stroke Paternal Family History: Family History (Last Reviewed 01/25/19 @ 09:10 by Rosey Maya DO) Father Diabetes Mother Kidney disease CVA (cerebral vascular accident) Hypertension Diabetes Cancer History Items: Diabetes Sibling Family History: Family History (Last Reviewed 01/25/19 @ 09:10 by Rosey Maya DO) Father Diabetes Mother Kidney disease CVA (cerebral vascular accident) Hypertension Diabetes Cancer History Items: Cancer, Diabetes Patient Problems: Active and Suspected Problems (Last Reviewed 01/25/19 @ 09:09 by Rosey Maya DO) Acute on chronic systolic (congestive) heart failure (Acute) Metabolic alkalosis (Acute) - Physical Exam General: Alert, Oriented x3 HEENT: Atraumatic Oral: Moist Mucosa Neck: Supple, No JVD Lungs: Clear to auscultation, Normal air movement, No rhonchi, No wheeze Cardiovascular: Regular rate, Regular Rhythm, Normal S1, Normal S2 Abdomen: Bowel Sounds Present, Soft, Non Tender, Non-Distended Extremities: No clubbing, No cyanosis, No edema Skin: No rashes Musculoskeletal: No Tenderness to Palpation of Joints or Extremities Lymphatic: No Cervical, Supraclavicular, or Inguinal Adenopathy Neurological: Cranial nerves II-XII grossly intact, Neuro grossly intact Psych/Mental Status: Normal Affect Vital Signs Temp Pulse Resp BP Pulse Ox 98.1 F 68 17 112/40 L 98 01/26/19 14:25 01/26/19 15:27 01/26/19 14:25 01/26/19 14:25 01/26/19 14:25 Oxygen Flow Rate (L/min) 3 Oxygen Delivery Method Nasal Cannula Weight: 90.9 kg Body Mass Index (BMI) 32.3 Finger Stick Blood Glucose 118 Intake and Output for Last 24 Hours 01/24/19 01/25/19 01/26/19 23:59 23:59 23:59 Intake Total 240 / 240 1130 / 1130 Output Total 200 / 200 Balance 40 / 40 1130 / 1130 Microbiology Past 72 Hours 01/25/19 23:50 Streptococcus pneumoniae Antigen (M - Final Urine Catheter - Catheter 01/25/19 23:50 Legionella Antigen - Final Urine Catheter - Catheter 01/25/19 10:11 Respiratory Panel (PCR) - Final Mucosa - Nasopharyngeal Laboratory Tests Past 24 Hrs 01/26/19 01/26/19 05:20 05:20 Sodium 140 Potassium 4.3 Chloride 99 Carbon Dioxide 34.0 H Anion Gap 7 BUN 21 H Creatinine 4.30 H Estim Creat Clear Calc 15.47 Est GFR (MDRD) Af Amer 14 L Est GFR (MDRD) Non-Af 12 L BUN/Creatinine Ratio 4.9 L Glucose 141 H Calcium 8.9 Phosphorus 3.7 Cancelled POC Glucose 01/26/19 01/26/19 01/26/19 16:53 11:01 06:39 POC Glucose 202 H 118 H 115 H 01/25/19 01/25/19 21:59 18:44 POC Glucose 97 68 L Assessment/Plan All Active Problems (Last Reviewed 01/25/19 @ 09:09 by Rosey Maya DO) Acute on chronic systolic (congestive) heart failure (Acute) Metabolic alkalosis (Acute) Chest pain (Resolved) Hypotension (Resolved) 1- ESRD on MWF. Pt missed Monday session. Pt came with CHF. Pt had HD session yesterday Thursday 01/25 with 4L no need for HD today. Next HD session 01/28 after cardiac cath 2- CHF: better with 4 L UF with HD on 01/25 Pt is going for cardiac cath Monday 3- HTN: BP well controlled.continue same BP meds 4- BMD: continue Phoslo with meals. check P level Renal team will continue to follow
[2019-01-26] MEDS: Atorvastatin Calcium 10 MG Tablet PO (22:10)
[2019-01-26 22:21] LABS: Bedside Glucose 150 mg/dL (70-110)
[2019-01-27] VITALS (12 sets, daily range): BP systolic 109–137; BP diastolic 29–47; PULSE 68–84; RESP 16–20; TEMP 36.7–36.8; O2SAT 95–100
[2019-01-27] MEDS: proMETHazine 25 MG Tablet PO ×3 (06:42→22:37)
[2019-01-27] MEDS: 0.9% NaCl Peripheral Flush Adult/Peds IV ×2 (06:42→16:36)
[2019-01-27] MEDS: HYDROcodone Bitartrate/Apap 5/325 Tablet PO ×3 (06:42→22:37)
[2019-01-27] MEDS: Heparin Injection (Vial) 5,000 UNIT/ML VIAL 5000 UNIT SC ×2 (06:42→13:04)
[2019-01-27 07:10] LABS: Bedside Glucose 185 mg/dL (70-110)
[2019-01-27] MEDS: Insulin Lispro 100 UNIT/ML INSULN.PEN 10 UNIT SC ×3 (09:14→18:05)
[2019-01-27] MEDS: Carvedilol 25 MG Tablet PO ×2 (09:14→16:41)
[2019-01-27] MEDS: Aspirin 81 MG TAB.CHEW PO (09:14)
[2019-01-27] MEDS: Clopidogrel Bisulfate 75 MG Tablet PO (09:15)
[2019-01-27] MEDS: Calcium Acetate 667 MG Capsule 1334 MG PO ×3 (09:15→16:41)
[2019-01-27] MEDS: Pantoprazole Sodium 20 MG Tablet PO ×2 (09:15→22:36)
[2019-01-27] MEDS: Lisinopril 10 MG Tablet PO (09:15)
[2019-01-27] MEDS: Isosorbide Mononitrate 60 MG Tablet PO (09:15)
[2019-01-27] MEDS: FLUoxetine 20 MG Capsule 40 MG PO (09:16)
--- NOTE | 2019-01-27 10:40 | PCM.PN.CARD ---
Subjectve: The patient believes she is feeling somewhat better overall. She has no new acute symptoms at this time. Objective: Vital Signs Temp Pulse Resp BP Pulse Ox 98.3 F 84 17 109/36 L 98 01/27/19 08:50 01/27/19 08:50 01/27/19 08:50 01/27/19 08:50 01/27/19 08:50 Oxygen Flow Rate (L/min) 3 Oxygen Delivery Method Nasal Cannula Weight: 201 lb 0.985 oz Body Mass Index (BMI) 32.3 Finger Stick Blood Glucose 118 Intake and Output for Last 24 Hours 01/25/19 01/26/19 01/27/19 23:59 23:59 23:59 Intake Total 240 / 240 1250 / 1250 240 / 240 Output Total 200 / 200 Balance 40 / 40 1250 / 1250 240 / 240 General: Awake, Alert, Oriented x 3, Cooperative, No Acute Distress HEENT: Atraumatic, Normocephalic, PERRL, EOMI, Sclera Non Icteric Oral: Moist Mucosa Neck: Supple, Good ROM, No JVD Lungs: Clear to auscultation Cardiovascular: Regular Rhythm, Normal S1, Normal S2 Abdomen: Bowel Sounds Present, Soft, Non Tender Psych/Mental Status: Appropriate Rhythm: Sinus rhythm Medical Necessity - Tobacco Use Smoking Status: Former smoker Tobacco Use: Non-smoker Assessment/Plan 1. CAD status post PCI The patient has a history of underlying CAD and is undergone PCI as noted above. She has been noted on her most recent noninvasive studies, pharmacologic stress nuclear imaging study, to have evidence of previous CO but no obvious myocardial ischemia, but with diminished LV systolic function/LVEF. At the present time she presents with symptoms that are concerning for her underlying CAD process. She will continue to be monitored. She will continue medical therapy as deemed appropriate. The tentative plan is for further evaluation of her coronary anatomy with diagnostic cardiac catheterization on 01-28-[address] Magdaleno. In the interim she will continue medical management. 2. Status post PDA repair She has a history of a remote PDA repair. There has been no obvious objective findings or issues with raised with respect to this concern. 3. Ischemic mediated cardiomyopathy Based on her most recent studies of her left ventricle her overall LV systolic function/LVEF has decreased. This can be reassessed with echocardiographic studies. In the interim she will continue medical management. She will be considered for repeat diagnostic cardiac catheterization as noted above to reassess her coronary anatomy and its potential impact on her left ventricular wall motion systolic function. 4. Acute on chronic systolic mediated CHF She will continue medical therapy as she is able. She is also continuing dialysis therapy to assist with her volume support. 5. Hyperlipidemia She will continue medical management as deemed appropriate. 6. Hypertension Her blood pressures will be followed. Her medications can be adjusted as needed. 7. Diabetes mellitus She will continue with care of internal medicine. 8. End-stage renal disease on chronic hemodialysis She is undergoing evaluation care by nephrology. She is proceeding with hemodialysis today. 9. COPD She will continue evaluation care per internal medicine. Comment: The patient's case has been discussed and reviewed the patient and her family members present. This note was generated using a voice recognition system and there may be incorrect words, spelling or punctuation that were not noted when reviewing the office note prior to saving.
[2019-01-27 13:15] LABS: Bedside Glucose 128 mg/dL (70-110)
--- NOTE | 2019-01-27 15:40 | PN_ITS ---
Patient Problems: Active and Suspected Problems (Last Reviewed 01/25/19 @ 09:09 by Rosey Maya DO) Acute on chronic systolic (congestive) heart failure (Acute) Metabolic alkalosis (Acute) Subjective: Patient seen and examined. Resting comfortably in bed. Reports improvement in breathing. Denies chest pain. - Physical Exam General: Alert, Oriented x3, Cooperative HEENT: Atraumatic, PERRLA, EOMI, Normocephalic Neck: Supple, No JVD, Negative Carotid Bruits Lungs: Clear to auscultation, Diminished Cardiovascular: Regular rate, Regular Rhythm, Normal S1, Normal S2, No murmurs Abdomen: Bowel Sounds Present, Soft, Non Tender, Non-Distended, Obese Extremities: No clubbing, No cyanosis, No edema, Capillary Refill Less than 3 S econds Skin: No rashes, No breakdown Musculoskeletal: No Tenderness to Palpation of Joints or Extremities Neurological: Cranial nerves II-XII grossly intact, Neuro grossly intact Psych/Mental Status: Normal Affect, Appropriate Vital Signs Temp Pulse Resp BP Pulse Ox 98.3 F 71 17 110/34 L 100 01/27/19 14:50 01/27/19 14:50 01/27/19 14:50 01/27/19 14:50 01/27/19 14:50 Oxygen Flow Rate (L/min) 3 Oxygen Delivery Method Nasal Cannula Weight: 201 lb 0.985 oz Body Mass Index (BMI) 32.3 Finger Stick Blood Glucose 118 Intake and Output for Last 24 Hours 01/25/19 01/26/19 01/27/19 23:59 23:59 23:59 Intake Total 240 / 240 1250 / 1250 730 / 730 Output Total 200 / 200 Balance 40 / 40 1250 / 1250 730 / 730 Microbiology Past 72 Hours 01/25/19 23:50 Streptococcus pneumoniae Antigen (M - Final Urine Catheter - Catheter 01/25/19 23:50 Legionella Antigen - Final Urine Catheter - Catheter 01/25/19 10:11 Respiratory Panel (PCR) - Final Mucosa - Nasopharyngeal POC Glucose 01/27/19 01/27/19 01/26/19 12:42 06:46 22:08 POC Glucose 128 H 185 H 150 H 01/26/19 16:53 POC Glucose 202 H Medical Necessity - Tobacco Use Smoking Status: Former smoker Tobacco Use: Non-smoker Assessment/Plan All Active Problems (Last Reviewed 01/25/19 @ 09:09 by Rosey Maya, DO) Acute on chronic systolic (congestive) heart failure (Acute) Metabolic alkalosis (Acute) Chest pain (Resolved) Hypotension (Resolved) 1. Acute on chronic systolic and diastolic CHF-chest x-ray on admission consistent with CHF. Patient underwent hemodialysis 01/25/2019 with 4 L removed. Echocardiogram June 2018 with EF 45%, stage II diastolic dysfunction. Continue home carvedilol, isosorbide, lisinopril regimen. Stress test in September 2018 showed an EF 29%. Given significant decline in EF and recent increase in CHF exacerbations, cardiology consult placed. Plan for cardiac cath in a.m. Plan for hemodialysis following cardiac catheterization 01/28/2019. 1500cc fluid restriction. 2. End-stage renal disease on hemodialysis-nephrology consulted. Plan for hemodialysis 01/28/2019 as noted above. 3. CAD status post stents with chronic elevated troponins-stent to mid LAD February 2018. Continue aspirin, statin, carvedilol, nitrate. Plan for cardiac cath in a.m given reduced EF as noted above. 4. Type 2 diabetes mellitus complicated with neuropathy and gastroparesis- continue home insulin regimen. 5. Chronic hypoxic respiratory failure secondary to chronic COPD-at baseline. Continue supplement oxygen to maintain O2 at or above 90%. 6. GABRIEL 7. Hypertension-stable, continue home carvedilol, lisinopril, isosorbide regimen. 8. Hyperlipidemia-continue statin. 9. Morbid obesity-encouraged diet lifestyle modifications. 10. Anemia of chronic disease-stable. 11. Anxiety/depression-continue home Xanax, fluoxetine regimen. 12. Tobacco dependence-encouraged smoking cessation. 13. Status post colostomy due to history of chronic wounds which have since healed DVT prophylaxis-heparin subcu This patient was seen by SATNAM Mcgraw under the supervision of Dr. Maya.
--- NOTE | 2019-01-27 16:25 | PCM.PN.REN ---
Patient Problems: Active and Suspected Problems (Last Reviewed 01/25/19 @ 09:09 by Rosey Maya DO) Acute on chronic systolic (congestive) heart failure (Acute) Metabolic alkalosis (Acute) Subjective: No nausea No vomiting. No SOB No CP - Physical Exam General: Alert HEENT: Atraumatic Oral: Moist Mucosa Neck: Supple, No JVD Lungs: Clear to auscultation, Normal air movement, No rhonchi, No wheeze Cardiovascular: Regular rate, Regular Rhythm, Normal S1, Normal S2 Abdomen: Bowel Sounds Present, Soft, Non Tender, Non-Distended Extremities: No clubbing, No cyanosis Skin: No rashes Musculoskeletal: No Tenderness to Palpation of Joints or Extremities Lymphatic: No Cervical, Supraclavicular, or Inguinal Adenopathy Neurological: Cranial nerves II-XII grossly intact, Neuro grossly intact Psych/Mental Status: Appropriate Vital Signs Temp Pulse Resp BP Pulse Ox 98.3 F 71 17 110/34 L 100 01/27/19 14:50 01/27/19 16:07 01/27/19 14:50 01/27/19 14:50 01/27/19 14:50 Oxygen Flow Rate (L/min) 3 Oxygen Delivery Method Nasal Cannula Weight: 91.2 kg Body Mass Index (BMI) 32.3 Finger Stick Blood Glucose 118 Intake and Output for Last 24 Hours 01/25/19 01/26/19 01/27/19 23:59 23:59 23:59 Intake Total 240 / 240 1250 / 1250 730 / 730 Output Total 200 / 200 Balance 40 / 40 1250 / 1250 730 / 730 Microbiology Past 72 Hours 01/25/19 23:50 Streptococcus pneumoniae Antigen (M - Final Urine Catheter - Catheter 01/25/19 23:50 Legionella Antigen - Final Urine Catheter - Catheter 01/25/19 10:11 Respiratory Panel (PCR) - Final Mucosa - Nasopharyngeal POC Glucose 01/27/19 01/27/19 01/26/19 12:42 06:46 22:08 POC Glucose 128 H 185 H 150 H 01/26/19 16:53 POC Glucose 202 H Medical Necessity - Tobacco Use Smoking Status: Former smoker Tobacco Use: Non-smoker Assessment/Plan All Active Problems (Last Reviewed 01/25/19 @ 09:09 by Rosey Maya DO) Acute on chronic systolic (congestive) heart failure (Acute) Metabolic alkalosis (Acute) Chest pain (Resolved) Hypotension (Resolved) 1- ESRD on MWF. Pt missed Monday session. Pt came with CHF. Pt had HD session Thursday 01/25 with 4L no need for HD today. Next HD session 01/28 after cardiac cath 2- CHF: better with 4 L UF with HD on 01/25 Pt is going for cardiac cath Monday 3- HTN: BP well controlled.continue same BP meds 4- BMD: continue Phoslo with meals. check P level Renal team will continue to follow
[2019-01-27 16:45] LABS: Bedside Glucose 125 mg/dL (70-110)
[2019-01-27] MEDS: Atorvastatin Calcium 10 MG Tablet PO (22:36)
[2019-01-27 23:41] LABS: Bedside Glucose 134 mg/dL (70-110)
[2019-01-28] VITALS (37 sets, daily range): BP systolic 91–126; BP diastolic 22–74; PULSE 65–79; RESP 16–70; TEMP 36.6–37.1; O2SAT 93–100
[2019-01-28 05:02] LABS: International Normalized Ratio 1.2; Prothrombin Time (Protime)PT. 15.1 SECONDS (11.7-14.9)
[2019-01-28 05:05] LABS: Hematocrit 29.9 % (37-47); Hemoglobin 9.1 g/dl (12.0-15.0); Mean Corp Hgb Conc 30.4 g/gl (32-36); Mean Corpuscular Volume 111.6 fL (81-99); Mean Platelet Vol. 9.7 fl (6.2-12.0); Platelet Count 86 K/mm3 (150-450); RBC Distribution Width CV 15.9 % (11.6-14.6); RBC Distribution Width SD 61.9 fl (35.1-43.9); Red Blood Count 2.68 M/mm3 (4.2-5.4); White Blood Count 5.2 K/mm3 (4.4-11.0)
[2019-01-28 05:07] LABS: Scan Indicated on CBC? Y/N NO
[2019-01-28 05:35] LABS: Anion Gap 9 (5-15); BUN 46 mg/dL (7-18); BUN/Creat Ratio 6.2 RATIO (10-20); Calcium,Total 9.5 mg/dL (8.5-10.1); Chloride 99 mmol/L (98-107); Creatinine, Serum 7.42 mg/dL (0.55-1.02); EST Glomerular Filtration Rate 6 mL/min (>60); Est Glom Filt Rate - Afr Amer 8 mL/min (>60); Estimated Creatinine Clearance 8.96 ml/min; Glucose 206 mg/dL (74-106); Potassium 5.6 mmol/L (3.5-5.1); Sodium Level 136 mmol/L (136-145)
--- NOTE | 2019-01-28 05:55 | EKG12_ITS ---
Test Reason : AM EKG Blood Pressure : / mmHG Vent. Rate : 069 BPM Atrial Rate : 069 BPM P-R Int : 134 ms QRS Dur : 090 ms QT Int : 408 ms P-R-T Axes : 044 064 193 degrees QTc Int : 437 ms Normal sinus rhythm T wave abnormality, consider inferolateral ischemia Abnormal ECG Confirmed by CHEPE BEASLEY, KAITLYNN ([id number]), writer editor SHANIA SOLITARIO ([id number] on 01/31/2019 12:59:02 PM Referred By: Alex Ravi Confirmed By:KAITLNYN MO MD
[2019-01-28] MEDS: 0.9% Normal Saline 1,000 ML 15 ML IV (06:43)
[2019-01-28] MEDS: Lisinopril 10 MG Tablet PO (06:43)
[2019-01-28] MEDS: Carvedilol 25 MG Tablet PO ×2 (06:44→20:27)
[2019-01-28] MEDS: Isosorbide Mononitrate 60 MG Tablet PO (06:44)
[2019-01-28] MEDS: Clopidogrel Bisulfate 75 MG Tablet PO (06:44)
[2019-01-28] MEDS: Aspirin 81 MG TAB.CHEW PO (06:45)
[2019-01-28 06:56] LABS: Bedside Glucose 146 mg/dL (70-110)
--- NOTE | 2019-01-28 09:13 | CASEMGMT ---
According to the [facility] website, the following are in-network tertiary facilities: [facility], [facility], [facility], [facility], [facility], [facility], [place], [facility], and . Monik TEJADA CM
--- NOTE | 2019-01-28 09:58 | EKG12_ITS ---
Test Reason : Blood Pressure : / mmHG Vent. Rate : 072 BPM Atrial Rate : 072 BPM P-R Int : 138 ms QRS Dur : 098 ms QT Int : 420 ms P-R-T Axes : 066 075 195 degrees QTc Int : 459 ms Normal sinus rhythm Anterior infarct , age undetermined Abnormal ECG No previous ECGs available Confirmed by DIVINA BEASLEY, SUSI ([id number]), medical editor SHANIA SOLITARIO ([id number]) on 01/29/2019 3:16:37 PM Referred By: Alex Ravi Confirmed By:SUSI MURCIA MD
--- NOTE | 2019-01-28 10:06 | CL.I_ITS ---
Patient Name: KOURTNEY REZA Study Date: 01/28/2019 Performing: Mark Magdaleno MD Ht: 66 inches 168 cm : 1975 Wt: 203.1 lbs 92 kg Age: 43 Gender: female BSA: 2.02 PROCEDURE(S) PERFORMED QX99-VAW/COR/LV EO67-HTG W OR WO PTCA, SINGLE CORONARY ARTERY QT51-WIOR, EACH ADD'L CORONARY ART, SAME MAJOR CLINICAL PROFILE AND CO-MORBIDITIES Indications: ACS > 24 hrs, New Onset Angina <= 2 months, Worsening Angina, Stable Known CAD, LV D ysfunction Heart Failure: NYHA Class: 2, Newly Diagnosed: No, Heart Failure Type: Systolic Stress/Imaging Stress/Image Study Performed: No Angina Classification Anginal Classification w/in 2 Weeks: CCS III CAD Presentations: Unstable angina. Other: Dyspnea on exertion Non-STEMI. Symptom onset Date/Time : 01/25/2019 Time Not Available Comorbidities/Risk Factors: Current/Recent Smoker (< 1year) Hypertension Dyslipidemia Prior CHF Prior PCI Peripheral Arterial Disease Diabetes Mellitus: Diabetes Therapy: Insulin CONCLUSIONS Occluded mid LAD stent with L to R collaterals. Double vessel CAD of the LCX and OM#1 Segmented LV systolic dysfunction- Severe LVEF: by LV gram 25 % Elevated Left Ventricular End Diastolic Pressure Successful PCI with PTCA to the proximal OM#1 with a 1.5 and 2.0 mm balloon; unable to advance new de flated balloon beyond mid OM due to calcification. No dissection, no stents placed and pt had no sym ptoms . Successful PTCA/VIKY to mid LCX with 2.25 x 12 Promus Synergy, post dilated with a 2.25 x 8 NC Balloon ; 75%-->0%, no dissection. 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 Magdaleno CV surgery consult for CABG to LAD and OM. Add hydralazine 25mg po bid DESCRIPTION OF PROCEDURE The patient arrived to the procedure lab. The risks and benefits of the procedure as well as a full d escription of our services here and lack of surgical backup were fully explained to the patient and/o r their significant other prior to the catheterization. The Timeout was completed, verifying the logan ect patient and procedure. The patient's procedural site was prepped and draped in the usual fashion. Local anesthetic was given subcutaneously to right groin region with Lidocaine 2%. Using a modified Seldinger technique, arterial access was obtained via the right femoral artery, a 4Fr sheath was inse rted. Left Coronary Artery selective angiography was performed in multiple views using a 4 Fr. JL5 c atheter. Right Coronary Artery selective angiography was then performed in multiple views using a 4 F r. 3DRC catheter. Left Ventriculography was performed in GARRIDO projection using a 4 Fr. Pigtail cathete r. LV to AO pullback pressures were then recordedThe images were reviewed and options discussed. A decision was then made to proceed with an Intervention, IVUS or other adjunct procedure. Arterial sheath was exchanged for a 6 Fr Sheath. EBU 3.75 Guide catheter was inserted and engaged into the LCA. BMW Guide wire was advanced to the Circumflex. BMW Guide wire was advanced to the 1st OM. Emerge 2.00x12 Balloon catheter was inserted. PTCA balloon inflated at 7 atms for 10 secs. PTCA b alloon inflated at 8 atms for 14 secs. Angiogram performed post balloon dilatation. Emerge 1.50x8 Bal loon catheter was inserted. PTCA balloon inflated at 8 atms for 11 secs. Angiogram performed post bal loon dilatation. Emerge 2.00x12 Balloon catheter was inserted. PTCA balloon inflated at 6 atms for 10 secs. Synergy 2.25x12 Drug Eluting stent was inserted. Angiogram performed post stent deployment. NC Emerge 2.25x8 Balloon catheter was inserted. PTCA balloon inflated at 12 atms for 7 secs. PTCA ballo on inflated at 14 atms for 9 secs. Angiogram performed post balloon dilatation. Emerge 1.50x8 Balloon catheter was inserted. Contrast was injected through the sheath and the Right Iliac and Femoral artery were assessed for possible closure device. The arterial sheath was sutured in place a nd capped CORONARY ANGIOGRAPHY DOMINANCE: Right Dominant LEFT HEART ASSESSMENT Left Ventricular Ejection Fraction: by LV Gram 25 % Depressed Left Ventricular systolic function LVEDP: 31 mmHg Anterior Akinesis. Apical Akinesis. Inferior Apical Akinesis LEFT MAIN: Mild luminal irregularities less than 30% LEFT ANTERIOR DESCENDING ARTERY: MID LAD: Previously placed stent is occluded CIRCUMFLEX ARTERY: MID CIRC: 75 % Stenosis OM 1: Proximal - 85 % Stenosis, Proximal - Moderate calcification RIGHT CORONARY ARTERY: Mild luminal irregularities less than 30% MID RCA: Moderate calcification COLLATERAL FLOW: Collateral flow from Left to Right INTERVENTION INFORMATION LESION SITE: 1st OM (Mid) Lesion Complexity: High/C, lesion at bifurcation: No, thrombus present: No, lesion length: 20 mm, cul prit lesion: No Pre Stenosis: 85 % Pre intervention MARIANA flow: 3 PROCEDURE: Balloon Angioplasty Post Stenosis: 50 % Post intervention MARIANA flow: 3 Lesion Devices: Edward Sci EMERGE MR 2.00x12 BALLOON Edward Sci EMERGE MR 1.50x08 BALLOON LESION SITE: Circumflex (Mid) Lesion Complexity: Non-High/Non-C, lesion at bifurcation: No, thrombus present: No, lesion length: 12 mm, culprit lesion: Yes Pre Stenosis: 75 % Pre intervention MARIANA flow: 3 PROCEDURE: Drug Eluting Stent with pre and post dilatation Post Stenosis: 0 % Post intervention MARIANA flow: 3 Lesion Devices: Edward Sci EMERGE MR 1.50x08 BALLOON Edward Sci Synergy MR VIKY 2.25x12 Edward Sci NC EMERGE MR 2.25x08 BALLOON COMPLICATIONS No Complications PROCEDURE MEDICATIONS Oxygen: 3 L/min via nasal cannula Heparin 6000 unit(s) IV 01/28/2019 09:03:37 Nitro 200 mcg IC 01/28/2019 09:03:56 Nitro 200 mcg IC 01/28/2019 09:03:56 SUMMARY OF HEMODYNAMIC DATA Time AIR REST ECG 08:24:57 AO 134/93 (110) SA 08:50:54 LV 122/1, 31 08:57:30 LV 122/2, 30 08:57:36 LVp 129/5, 25 08:58:42 AOp 132/60 (85) 08:58:47 Signed By Mark Magdaleno MD On 01/28/2019 10:05:29 Mark Magdaleno MD
[2019-01-28 10:10] LABS: ACT Activated Clotting Time 202 sec (74-137)
--- NOTE | 2019-01-28 11:04 | CRPHASE1_ITS ---
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 [employer]:: Mark Magdaleno Risk Factors/Lifestyle Smoking Status: Former smoker Hx Hypertension: Yes Hx Diabetes Mellitus Type 1: Yes Hx Metabolic Disorders: Yes Hx Dyslipidemia: Yes Hx Obesity: Yes Height: 5 ft 6 in - BMI 32.6 Post-Menopausal: No Stress: Home/Family Risk Factor for Sedentary Lifestyle: Highest Risk Family History: Family History (Last Reviewed 01/25/19 @ 09:10 by Rosey Maya DO) Father Diabetes Mother Kidney disease CVA (cerebral vascular accident) Hypertension Diabetes Cancer Past Cardiac Illness: Coronary Artery Disease, Previous PCI w/Stent Phase I Education Given On:: [place], Nutrition, Diabetes - Type I Issues Affecting Care:: None Knowledge of Condition:: Yes Learning Preferences: Verbal, Written Medical/Surgical History AL:: No COPD:: Yes Diabetes:: Yes Diabetes Type I:: Yes Hypertension:: Yes Dyslipidemia:: Yes Renal:: Yes - END STAGE PTCA:: Yes - EF 29% Discharge/Home/Social Eval Discharge Disposition: Home Cardiac Rehabilitation Info Cardiac Rehabilitation Program Information: Cardiac Rehabilitation is important for patients like you who are recovering from a heart problem. Cardiac rehabilitation programs are recognized as integral to the continued care of the patient with coronary heart disease. The cardiac rehabilitation program is designed to optimize a patient's physical, psychological, and social functioning. Health healthcare associate work in cardiac rehabilitation programs and assist you with getting the treatments you need to get stronger and healthier - like exercise, healthy eating habits, and medications. Cardiac rehabilitation has been show to help people with heart problems live longer and have better life enjoyment than people who do not go to cardiac rehabilitation. Please contact the Cardiac Rehabilitation Program at [facility] at in two weeks if you have not heard from them.
--- NOTE | 2019-01-28 11:07 | CRPH1.INSTRU ---
General Education CAD and cardiac anatomy and function:: Patient communicates acknowledgment - PATIENT IS VERY GROGGY BUT VOICES UNDERSTANDING... CR BOOKLET LEFT BEDSIDE Explanation of diagnoses and procedures:: Patient communicates acknowledgment Sign/Symptoms of MT:: Patient communicates acknowledgment Antiplatelet therapy: Patient communicates acknowledgment Proper use of NTG-SL: Not instructed Emergency procedures and activation of EMS: Patient communicates acknowledgment Compliance of all prescribed medications: Patient communicates acknowledgment Smoking Patient Nicotine/Smoking Risk Factors Are:: Cigarettes Recommendations Include:: Previous smoker; encourage continued cessation Nicotine/Smoking Response Code:: Patient communicates acknowledgment Dyslipidemia Patient Dyslipidemia Risk Factors Are:: Total Cholesterol, Triglycerides, HDL, LDL Recommendations Include:: Lipid profile not available, Reviewed NCEP/ATP guidelines, Therapeutic Lifestyle Change dietary guidelines Dyslipidemia Response Code:: Patient communicates acknowledgment Overweight/Obesity Patient Overweight/Obesity Risk Factors Are:: Obesity - > or = 30 Recommendations Include:: Weight loss of 5-10%, Reduced calorie diet, Exercise 5-7 times/week Overweight/Obesity:: Patient communicates acknowledgment Hypertension Recommendations Include:: BP <130/80 if diabetic, DASH dietary guidelines, Decrease/maintain normal body weight, Moderation of ETOH Hypertension:: Patient communicates acknowledgment Heart Disease Patient Heart Disease Risk Factors Are:: Previous cardiac event Heart Disease Response Code:: Patient communicates acknowledgment Diabetes Patient Diabetes Risk Factors Are:: Elevated blood sugars Recommendations Include:: Maintain fasting blood sugars 70-110 md/dL, Maintain HgbA1c of 6% or less, Monitor blood sugar as prescribed, Diabetic dietary guidelines, Decrease/maintain body weight Diabetes:: Patient communicates acknowledgment Metabolic Syndrome Patient Metabolic Syndrome Risk Factors Are [3 of 5]:: Fasting blood sugar > 100 mg/dL, Waist circumference > 35 [female] or 40 [male], High triglyceride >150, Hypertension, Low HDL <40 [male] or < 50 [female] Recommendations Include:: Reinforce compliance to risk factor modifications, Patient is diabetic, Encouraged follow-up with Primary Care Physician Metabolic Syndrome Response Code:: Patient communicates acknowledgment Sedentary Patient Sedentary Risk Factors Are:: Lack of regular exercise Recommendations Include:: Aerobic exercise 5-7 times/week for 20-30 minutes continuously, Benefits of regular exercise, Discussed home walking program, Monitored Outpatient Cardiac Rehab Sedentary Response Code:: Patient communicates acknowledgment Stress Recommendations Include:: Identification of stressors, and assessment of coping skills, Stress management techniques Stress Response Code:: Patient communicates acknowledgment
--- NOTE | 2019-01-28 11:19 | PCM.PN.REN ---
Patient Problems: Active and Suspected Problems (Last Reviewed 01/25/19 @ 09:09 by Rosey Maya DO) Acute on chronic systolic (congestive) heart failure (Acute) Metabolic alkalosis (Acute) Subjective: Status post angioplasty this a.m. Sleepy - Physical Exam General: Cooperative HEENT: Atraumatic, PERRLA, EOMI, Normocephalic Neck: Supple, No JVD, Negative Carotid Bruits Lungs: Clear to auscultation, Normal air movement Cardiovascular: Regular rate, No murmurs Abdomen: Bowel Sounds Present, Soft, Non Tender Extremities: No edema, Capillary Refill Less than 3 Seconds Skin: No rashes, No breakdown Musculoskeletal: No Tenderness to Palpation of Joints or Extremities Neurological: Cranial nerves II-XII grossly intact Psych/Mental Status: Normal Affect, Appropriate Vital Signs Temp Pulse Resp BP Pulse Ox 97.8 F 72 26 H 119/49 L 97 01/28/19 10:00 01/28/19 10:45 01/28/19 10:45 01/28/19 10:45 01/28/19 10:45 Oxygen Flow Rate (L/min) 3 Oxygen Delivery Method Nasal Cannula Weight: 91.5 kg Body Mass Index (BMI) 32.3 Finger Stick Blood Glucose 118 Intake and Output for Last 24 Hours 01/26/19 01/27/19 01/28/19 23:59 23:59 23:59 Intake Total 1250 / 1250 1100 / 1100 50 / 50 Balance 1250 / 1250 1100 / 1100 50 / 50 Microbiology Past 72 Hours 01/25/19 23:50 Streptococcus pneumoniae Antigen (M - Final Urine Catheter - Catheter 01/25/19 23:50 Legionella Antigen - Final Urine Catheter - Catheter 01/25/19 10:11 Respiratory Panel (PCR) - Final Mucosa - Nasopharyngeal Laboratory Tests Past 24 Hrs 01/28/19 01/28/19 01/28/19 04:48 04:48 04:48 WBC 5.2 RBC 2.68 L Hgb 9.1 L Hct 29.9 L MCV 111.6 H MCH 34.0 H MCHC 30.4 L RDW 15.9 H RDW Differential 61.9 H Plt Count 86 L MPV 9.7 PT 15.1 H INR 1.2 APTT 32.0 Activated Clotting Time Sodium 136 Potassium 5.6 H Chloride 99 Carbon Dioxide 28.0 Anion Gap 9 BUN 46 H Creatinine 7.42 H* Estim Creat Clear Calc 8.96 Est GFR (MDRD) Af Amer 8 L Est GFR (MDRD) Non-Af 6 L BUN/Creatinine Ratio 6.2 L Glucose 206 H Calcium 9.5 01/28/19 09:33 WBC RBC Hgb Hct MCV MCH MCHC RDW RDW Differential Plt Count MPV PT INR APTT Activated Clotting Time 202 H Sodium Potassium Chloride Carbon Dioxide Anion Gap BUN Creatinine Estim Creat Clear Calc Est GFR (MDRD) Af Amer Est GFR (MDRD) Non-Af BUN/Creatinine Ratio Glucose Calcium POC Glucose 01/28/19 01/27/19 01/27/19 06:42 22:34 16:36 POC Glucose 146 H 134 H 125 H 01/27/19 12:42 POC Glucose 128 H Medical Necessity - Tobacco Use Smoking Status: Former smoker Tobacco Use: Non-smoker Assessment/Plan All Active Problems (Last Reviewed 01/25/19 @ 09:09 by Rosey Maya DO) Acute on chronic systolic (congestive) heart failure (Acute) Metabolic alkalosis (Acute) Chest pain (Resolved) Hypotension (Resolved) 1- ESRD on MWF. Pt missed Monday session. Pt came with CHF. Pt had HD session Thursday 01/25 with 4L Hemodialysis today 2- CHF: better 3- HTN: BP well controlled.continue same BP meds 4- BMD: continue Phoslo with meals.
[2019-01-28 11:41] LABS: ACT Activated Clotting Time 153 sec (74-137)
[2019-01-28] MEDS: 0.9% NaCl Peripheral Flush Adult/Peds IV (11:42)
--- NOTE | 2019-01-28 12:18 | PCM.PN.HOSP ---
Patient Problems: Active and Suspected Problems (Last Reviewed 01/25/19 @ 09:09 by Rosey Maya DO) Acute on chronic systolic (congestive) heart failure (Acute) Metabolic alkalosis (Acute) Subjective: Post PCI to the obtuse marginal. Patient had approached via her right groin and is currently on bedrest and is complaining of back pain at present. No chest pain Vitals/I&O's: Vital Signs Temp Pulse Resp BP Pulse Ox 36.6 C 66 26 H 110/30 L 97 01/28/19 10:00 01/28/19 12:05 01/28/19 10:45 01/28/19 12:05 01/28/19 10:45 Oxygen Flow Rate (L/min) 3 Oxygen Delivery Method Nasal Cannula Weight: 91.5 kg Body Mass Index (BMI) 32.3 Finger Stick Blood Glucose 118 Intake and Output for Last 24 Hours 01/26/19 01/27/19 01/28/19 23:59 23:59 23:59 Intake Total 1250 / 1250 1100 / 1100 50 / 50 Balance 1250 / 1250 1100 / 1100 50 / 50 General: Alert, No apparent distress HEENT: Atraumatic, Normocephalic Oral: Moist Mucosa, No Gingival or Mucosal Lesions/ Ulcerations Neck: No Nodes, Thyroid Normal Size and Texture Lungs: Clear to auscultation, Normal air movement, No rhonchi, No wheeze, No rales Cardiovascular: Regular rate, Regular Rhythm, Normal S1, Normal S2, No murmurs Abdomen: Bowel Sounds Present, Soft, Non Tender, Non-Distended, No Hepato-splenomegaly Extremities: No edema, No Calf Tenderness, - - Fistula in left upper extremity with palpable bruit Skin: No rashes, No breakdown Psych/Mental Status: Normal Affect, Appropriate Microbiology Past 72 Hours 01/25/19 23:50 Urine Catheter - Catheter Streptococcus pneumoniae Antigen (M - Final 01/25/19 23:50 Urine Catheter - Catheter Legionella Antigen - Final 01/25/19 10:11 Mucosa - Nasopharyngeal Respiratory Panel (PCR) - Final Laboratory Results 01/27/19 12:42: POC Glucose 128 H 01/27/19 16:36: POC Glucose 125 H 01/27/19 22:34: POC Glucose 134 H 01/28/19 04:48: WBC 5.2, RBC 2.68 L, Hgb 9.1 L, Hct 29.9 L, MCV 111.6 H, MCH 34.0 H, MCHC 30.4 L, RDW 15.9 H, RDW Differential 61.9 H, Plt Count 86 L, MPV 9.7 01/28/19 04:48: Sodium 136, Potassium 5.6 H, Chloride 99, Carbon Dioxide 28.0, Anion Gap 9, BUN 46 H, Creatinine 7.42 H*, Estim Creat Clear Calc 8.96, Est GFR (MDRD) Af Amer 8 L, Est GFR (MDRD) Non-Af 6 L, BUN/Creatinine Ratio 6.2 L, Glucose 206 H, Calcium 9.5 01/28/19 04:48: PT 15.1 H, INR 1.2, APTT 32.0 01/28/19 06:42: POC Glucose 146 H 01/28/19 09:33: Activated Clotting Time 202 H 01/28/19 11:32: Activated Clotting Time 153 H Current Medications Acetaminophen (Tylenol) 650 mg PO Q6H PRN PRN PRN Reason: Mild Pain (0-2/10) Hydrocodone Bitart/Acetaminophen ([place] 5mg-325mg) 1 tablet PO Q6H PRN PRN PRN Reason: SEVERE PAIN (6-10/10) Last Admin: 01/27/19 22:37 Dose: 1 tablet Documented by: Alprazolam (Xanax) 0.5 mg PO Q12H PRN PRN PRN Reason: ANXIETY Last Admin: 01/26/19 17:03 Dose: 0.5 mg Documented by: Aspirin (Aspirin, Baby) 81 mg PO DAILY@0800 [facility] Last Admin: 01/28/19 06:45 Dose: 81 mg Documented by: Atorvastatin Calcium (Lipitor) 10 mg PO QHS [facility] Last Admin: 01/27/19 22:36 Dose: 10 mg Documented by: Atropine Sulfate () 0.5 mg IV UD PRN PRN Reason: HR <50 bpm Calcium Acetate (Phoslo Gel Cap) 1,334 mg PO TIDCM [facility] Last Admin: 01/28/19 10:15 Dose: Not Given Documented by: Carvedilol (Coreg) 25 mg PO BIDCM [facility] Last Admin: 01/28/19 06:44 Dose: 25 mg Documented by: Clopidogrel Bisulfate (Plavix) 75 mg PO DAILY [facility] Last Admin: 01/28/19 06:44 Dose: 75 mg Documented by: Dextrose (D50w Syringe) 0 gm IV X1 PRN; Protocol PRN Reason: Hypoglycemia Ergocalciferol (Vitamin D) 50,000 unit PO MO [place] Fluoxetine HCl (Prozac) 40 mg PO DAILY [facility] Last Admin: 01/27/19 09:16 Dose: 40 mg Documented by: Glucagon () 1 mg IM .X1 PRN PRN Reason: Hypoglycemia Hydralazine HCl (Apresoline) 25 mg PO BID [facility] Hydroxyzine HCl (Atarax Tablet) 10 mg PO MoWeFr@1400 [facility] Last Admin: 01/25/19 13:23 Dose: Not Given Documented by: Sodium Chloride () 1,000 mls @ 15 mls/hr IV .Q48H [facility] Last Admin: 01/28/19 06:43 Dose: 15 mls/hr Documented by: Insulin Glargine (Lantus (Bk)) 5 units SC HS [facility] Last Admin: 01/27/19 22:37 Dose: 5 units Documented by: Insulin Human Lispro (Humalog Kwikpen ([facility])) 10 unit SC TIDCM [facility] Last Admin: 01/28/19 10:15 Dose: Not Given Documented by: Isosorbide Mononitrate (Imdur) 60 mg PO DAILY [facility] Last Admin: 01/28/19 06:44 Dose: 60 mg Documented by: Labetalol HCl (Trandate) 5 mg IV X1 PRN PRN Reason: SBP > 160 when pulling sheath Lidocaine/Prilocaine ([place]mla Cream W/Tegaderm) 1 gm TOPICAL MOWEFR [facility]; Protocol Last Admin: 01/25/19 13:23 Dose: Not Given Documented by: Lisinopril (Zestril) 10 mg PO DAILY [facility] Last Admin: 01/28/19 06:43 Dose: 10 mg Documented by: Loperamide HCl (Imodium) 2 mg PO TID PRN PRN Reason: LOOSE STOOLS Melatonin (Melatonin) 10 mg PO QHS PRN PRN Reason: SLEEP Metoclopramide HCl (Reglan) 5 mg IV Q6 PRN PRN Reason: NAUSEA/VOMITING Multivit/Ca Carb/B Cmplx/FA/Prenat (Nephrocaps, Renaphro) 1 capsule PO MOWEFR [facility] Last Admin: 01/25/19 11:17 Dose: 1 capsule Documented by: Nitroglycerin (Nitrostat) 0.4 mg SUBLINGUAL Q5M PRN PRN Reason: CARDIAC/CHEST PAIN Nystatin (Mycostatin Powder) 1 applic TOPICAL BID PRN; Protocol PRN Reason: skin issues Pantoprazole Sodium (Protonix) 20 mg PO BID [place] Last Admin: 01/27/19 22:36 Dose: 20 mg Documented by: Promethazine HCl (Phenergan Tablet) 25 mg PO Q6H PRN PRN PRN Reason: NAUSEA Last Admin: 01/27/19 22:37 Dose: 25 mg Documented by: Sodium Chloride () 10 - 40 ml IV UD PRN PRN Reason: SALINE FLUSH Last Admin: 01/28/19 11:42 Dose: 20 ml Documented by: Sodium Chloride ([place] Nasal [place]) 2 spray NASAL TID PRN PRN PRN Reason: NASAL DRYNESS Sodium Chloride () 500 ml IV BOLUS PRN PRN Reason: VASO-VAGAL PROTOCOL Medical Necessity - Tobacco Use Smoking Status: Former smoker Tobacco Use: Non-smoker Assessment/Plan All Active Problems (Last Reviewed 01/25/19 @ 09:09 by Rosey Maya DO) Acute on chronic systolic (congestive) heart failure (Acute) Metabolic alkalosis (Acute) Chest pain (Resolved) Hypotension (Resolved) 1. Acute heart failure with reduced ejection fraction EF of 29% from December 2018 Partially attributable to missing dialysis Currently improved at this time Patient again to have dialysis today which is her normal dialysis day 2. Ischemic cardiomyopathy Patient underwent left heart catheterization and received percutaneous coronary intervention to the obtuse marginal artery And on aspirin, atorvastatin, carvedilol, clopidogrel Management per cardiology 3. End-stage renal disease Dialysis every Monday Nephrology following 4. Diabetes mellitus type 2 Fair control at this time Continue with basal and prandial insulins 5. VTE prophylaxis: Chemical prophylaxis held right now until hemostasis is obtained. Code Visit Inpatient E&M: 16876 Subs Hosp L2
[2019-01-28 12:40] LABS: Bedside Glucose 163 mg/dL (70-110)
[2019-01-28] MEDS: Calcium Acetate 667 MG Capsule 1334 MG PO ×2 (13:00→20:27)
[2019-01-28] MEDS: Insulin Lispro 100 UNIT/ML INSULN.PEN 10 UNIT SC ×2 (13:00→20:27)
[2019-01-28] MEDS: Folic Acid/Vitamin B Comp W-C 1 Capsule 1 CAP PO (13:01)
[2019-01-28] MEDS: Pantoprazole Sodium 20 MG Tablet PO ×2 (13:01→22:01)
[2019-01-28] MEDS: FLUoxetine 20 MG Capsule 40 MG PO (13:01)
[2019-01-28] MEDS: HYDROcodone Bitartrate/Apap 5/325 Tablet PO ×2 (13:20→22:00)
--- NOTE | 2019-01-28 13:57 | NURSING ---
Colostomy appliance changed per patient request. stoma is pink and sits slightly above skin level. peristomal skin is intact. cleansed with warm water. pat dry. applied a new flat 2 piece Soumya appliance. pt tolerated well. states she gets her supplies from [facility] at home. denies further needs at this time.
[2019-01-28] MEDS: Lidocaine/Prilocaine HCl 5 GM Tube 1 GM TOPICAL (15:32)
[2019-01-28] MEDS: hydrOXYzine 10 MG Tablet PO (15:33)
[2019-01-28] MEDS: Acetaminophen 325 MG Tablet 650 MG PO (17:20)
--- NOTE | 2019-01-28 20:22 | DIALYSIS ---
Hemodialysis completed , Fluid removed was 3400 ml. Patient tolerated well. See flowsheet for details.
[2019-01-28 20:36] LABS: Bedside Glucose 86 mg/dL (70-110)
[2019-01-28] MEDS: Atorvastatin Calcium 10 MG Tablet PO (22:01)
[2019-01-28] MEDS: proMETHazine 25 MG Tablet PO (22:03)
[2019-01-28 22:11] LABS: Bedside Glucose 182 mg/dL (70-110)
[2019-01-29] VITALS (12 sets, daily range): BP systolic 81–126; BP diastolic 24–67; PULSE 64–72; RESP 15–25; TEMP 36.7–36.8; O2SAT 98–100
--- NOTE | 2019-01-29 01:26 | NURSING ---
Pt. asked for new wafer to replace it on her colostomy. Pt. denied needing assistance.
[2019-01-29] MEDS: Acetaminophen 325 MG Tablet 650 MG PO (02:58)
[2019-01-29] MEDS: 0.9% NaCl Peripheral Flush Adult/Peds IV (03:03)
[2019-01-29 03:18] LABS: Hematocrit 26.2 % (37-47); Hemoglobin 7.9 g/dl (12.0-15.0); Mean Corp Hgb Conc 30.2 g/gl (32-36); Mean Corpuscular Hgb 33.2 pg (27.0-32.0); Mean Corpuscular Volume 110.1 fL (81-99); Mean Platelet Vol. 9.8 fl (6.2-12.0); Platelet Count 84 K/mm3 (150-450); RBC Distribution Width CV 16.3 % (11.6-14.6); RBC Distribution Width SD 62.4 fl (35.1-43.9); Red Blood Count 2.38 M/mm3 (4.2-5.4); White Blood Count 4.6 K/mm3 (4.4-11.0)
[2019-01-29 03:35] LABS: Scan Indicated on CBC? Y/N NO
[2019-01-29 03:38] LABS: Anion Gap 7 (5-15); BUN 25 mg/dL (7-18); Calcium,Total 7.2 mg/dL (8.5-10.1); Chloride 108 mmol/L (98-107); EST Glomerular Filtration Rate 12 mL/min (>60); Est Glom Filt Rate - Afr Amer 15 mL/min (>60); Estimated Creatinine Clearance 15.83 ml/min; Glucose 157 mg/dL (74-106); Potassium 4.4 mmol/L (3.5-5.1); Sodium Level 142 mmol/L (136-145)
[2019-01-29] MEDS: proMETHazine 25 MG Tablet PO (04:03)
[2019-01-29] MEDS: HYDROcodone Bitartrate/Apap 5/325 Tablet PO (04:03)
[2019-01-29] MEDS: Aspirin 81 MG TAB.CHEW PO (08:17)
[2019-01-29] MEDS: Isosorbide Mononitrate 60 MG Tablet PO (08:18)
[2019-01-29] MEDS: FLUoxetine 20 MG Capsule 40 MG PO (08:18)
[2019-01-29] MEDS: Clopidogrel Bisulfate 75 MG Tablet PO (08:18)
[2019-01-29] MEDS: Calcium Acetate 667 MG Capsule 1334 MG PO (08:18)
[2019-01-29] MEDS: Pantoprazole Sodium 20 MG Tablet PO (08:18)
[2019-01-29] MEDS: Carvedilol 25 MG Tablet PO (08:18)
[2019-01-29] MEDS: hydrALAZINE 25 MG Tablet PO (08:18)
[2019-01-29] MEDS: Insulin Lispro 100 UNIT/ML INSULN.PEN 10 UNIT SC (08:19)
[2019-01-29] MEDS: Lisinopril 10 MG Tablet PO (08:19)
[2019-01-29 08:31] LABS: Bedside Glucose 149 mg/dL (70-110)
--- NOTE | 2019-01-29 08:50 | PCM.PN.CARD ---
Subjectve: Patient feeling much better after hemodialysis and angioplasty yesterday. No chest pain. No 24-hour events. Right groin is clean/dry/intact. Patient status post hemodialysis yesterday with approximately 3.5 L removed and feels much better. Much improved shortness of breath. Hemoglobin within nominal limits. Creatinine fluctuates with hemodialysis. Objective: Vital Signs Temp Pulse Resp BP Pulse Ox 98.3 F 70 15 113/27 L 98 01/29/19 08:00 01/29/19 08:18 01/29/19 08:00 01/29/19 08:18 01/29/19 08:00 Oxygen Flow Rate (L/min) 3 Oxygen Delivery Method Nasal Cannula Weight: 197 lb 5.019 oz Body Mass Index (BMI) 32.3 Finger Stick Blood Glucose 118 Intake and Output for Last 24 Hours 01/27/19 01/28/19 01/29/19 23:59 23:59 23:59 Intake Total 1100 / 1100 991 / 991 300 / 300 Output Total 3400 / 3400 Balance 1100 / 1100 -2409 / -2409 300 / 300 General: Awake, Alert, Oriented x 3 HEENT: PERRL, EOMI, Sclera Non Icteric Neck: Supple, Good ROM, No Lymph Node Enlargement Lungs: Clear to auscultation Cardiovascular: Regular Rhythm, Normal S1, Normal S2, No Murmurs, No Rubs, No Gallops Vascular: No Carotid Bruits, Normal Femoral Pulses, Normal Radial Pulses, Normal Dorsalis Pedal Pulse, Normal Posterior Tibial Pulses Abdomen: Bowel Sounds Present, Soft, Non Tender, No HSM, No Organomegaly Extremities: No Cyanosis, No Clubbing, No edema Neurological: No Focal Motor or Sensory Deficit 01/29/19 03:00: Sodium 142, Potassium 4.4, Chloride 108 H, Carbon Dioxide 27.0, Anion Gap 7, BUN 25 H, Creatinine 4.20 H, Est GFR (MDRD) Af Amer 15 L, Est GFR (MDRD) Non-Af 12 L, BUN/Creatinine Ratio 6.0 L, Glucose 157 H, Calcium 7.2 L 01/29/19 03:00: WBC 4.6, RBC 2.38 L, Hgb 7.9 L, Hct 26.2 L, MCV 110.1 H, MCH 33.2 H, MCHC 30.2 L, RDW 16.3 H, RDW Differential 62.4 H, Plt Count 84 L, MPV 9.8 Rhythm: EKG: ECHO: Stress Test: Cardiac Cath: PCI: CT Surgery: Holter monitor: EPS: PPM: CXR: Chest CT Scan: Medical Necessity - Tobacco Use Smoking Status: Former smoker Tobacco Use: Non-smoker Assessment/Plan 1. Coronary artery disease: The patient returns with unstable anginal symptoms, with repeat catheterization demonstrated occluded mid LAD in-stent restenosis, and progression of coronary disease of her upper [place] obtuse marginal and mid left circumflex. We attempted balloon angioplasty only of her proximal obtuse marginal #1 with minimal success given the calcification throughout the vessel and small size of the vessel. We were however successful angioplasty and stenting the mid left circumflex just downstream from the bifurcation of the obtuse marginal branch. At this point I would recommend continuing baby aspirin, Plavix, Imdur, and I added hydralazine 25 mg p.o. twice daily for additional afterload reduction. The patient feels much better today on antihypertensive therapy as well as fluid removal from hemodialysis. At this point I would recommend a viability study in the next few weeks to determine if the patient may benefit from surgical revascularization of her distal LAD or obtuse marginal branch. If there is no significant anterior apical viability, I would not recommend bypass surgery for single-vessel. I would recommend optimizing medical therapy. It is unclear and probably unlikely that the surgeon will be able to access the distal left circumflex artery that was stented yesterday, given its geographic location behind the heart. I am not sure the patient would benefit from single-vessel bypass surgery to the obtuse marginal branch as this is a small vessel as well. In short, there are few good options for coronary revascularization in this patient. 2. Anemia: The patient has a hemoglobin of 7.9 most likely secondary to her end-stage renal disease. Recommend repeating her hemoglobin after hemodialysis in 2 days. 3. Hyperlipidemia: Continue Lipitor therapy. 4. Hypertension: Patient's blood pressure is much better controlled after hemodialysis and the addition of hydralazine. Continue Coreg, Imdur, hydralazine, lisinopril. 5. Thank you very much for the opportunity to participate in the cardiac care of your patient. Patient will be discharged home. Code Visit Inpatient E&M: 55154 Subs Hosp L2
--- NOTE | 2019-01-29 09:21 | DCINST_ITS ---
- Discharge Diagnoses Current Active Problems: Current Active and Chronic Problems (Last Reviewed 01/25/19 @ 09:09 by Rosey Maya DO) Acute on chronic systolic (congestive) heart failure (Acute) Metabolic alkalosis (Acute) Ischemic cardiomyopathy (Chronic) EF in December 2018 on a stress test was 29% with extensive wall motion abnormal ities You will use the following diet at home:: Calorie/Carbohydrate Controlled (specify 1200, 1400, etc) - 1800, Renal (restricted protein/sodium) Your food should be the consistency of: Regular Your liquids should be the consistency of: Regular/Thin Discharge Activity: Return to Normal Activity Weight Bearing Status: Weight bearing as tolerated Call your doctor if your incision/area has: Continuous Slow Oozing, Sudden Increased Bleeding, Increased Pain/ Swelling, Increased Redness Call your doctor if you observe: Fever of 101 or Higher, Shortness of breath, Chest pain Instructions: Heart Failure: Tracking Your Weight, Heart Failure: Making Changes to Your Diet Additional Instructions: oxygen 2-3 liters Allergies/Adverse Reactions: Allergies latex Allergy (Verified 12/31/18 08:58) Rash prochlorperazine [From Compazine] Allergy (Verified 12/31/18 08:58) Unknown levofloxacin [From Levaquin] Adverse Reaction (Verified 12/31/18 08:58) PT CAN'T REMEMBER PT CAN'T REMEMBER metoclopramide HCl [From Reglan] Adverse Reaction (Verified 12/31/18 08:58) Nausea NSAIDS (Non-Steroidal Anti-Inflamma Adverse Reaction (Verified 12/31/18 08:58) kidney function oxycodone HCl [From Percocet] Adverse Reaction (Verified 12/31/18 08:58) HALLUCINATIONS Medications to take at Discharge Aspirin [Aspirin, Baby] 81 mg PO DAILY@0800 01/26/16 Calcium Acetate [Phoslo Gel Cap] 1,334 mg PO TIDCM 01/26/16 Ergocalciferol [Vitamin D] 50,000 unit PO MO 01/26/16 Insulin Aspart [Novolog Flexpen] 10 units SC TIDCM 01/26/16 Insulin Glargine,Hum.rec.anlog [Lantus] 5 unit SQ QHS 01/09/17 proMETHazine tablet [Phenergan tablet] 25 mg PO Q6H PRN PRN #10 tab 03/06/17 Sodium Bicarbonate 650 mg PO 4X/DAY 03/29/17 Atorvastatin Calcium [Lipitor] 10 mg PO QHS 05/26/18 Carvedilol [Coreg] 25 mg PO BID 05/26/18 Loperamide HCl [Imodium A-D] 2 mg PO TID PRN 05/26/18 Pantoprazole Sodium [Protonix] 20 mg PO BID 05/26/18 Clopidogrel Bisulfate [Plavix] 75 mg PO DAILY 07/01/18 ALPRAZolam [Xanax] 0.5 mg PO MOWEFR PRN 08/09/18 B Complex W-C No.20/Folic Acid [Nephrocaps Softgel] 1 mg PO MOWEFR 08/09/18 Fluoxetine HCl 40 mg PO DAILY 08/09/18 Lidocaine/Prilocaine HCl [Emla Cream W/Tegaderm] 1 applicatio TOPICAL MOWEFR 10/01/18 Nystatin Powder [Mycostatin Powder] 1 applic TOPICAL BID PRN 10/14/18 hydrOXYzine tablet [Atarax tablet] 10 mg PO MOWEFR 11/06/18 Melatonin 10 mg PO QHS PRN 12/14/18 Sodium Chloride 0.65% [[place] Nasal [place]] 2 spray NASAL TID PRN PRN spray.btl 12/14/18 Isosorbide Mononitrate [Imdur] 60 mg PO DAILY #30 tablet 01/01/19 Lisinopril [Zestril] 10 mg PO DAILY #30 tablet 01/01/19 Hydrocodone/Acetaminophen [[place] 5-325 Tablet] 1 ea PO Q6H PRN PRN 01/25/19 Acetaminophen [Tylenol Tablet] 650 mg PO Q6H PRN PRN tab 01/29/19 Nitroglycerin (INPATIENT USE) [Nitrostat] 0.4 mg SUBLINGUAL Q5M PRN #10 tab.subl 01/29/19 hydrALAZINE [Apresoline] 25 mg PO BID #60 tab 01/29/19 The following prescriptions were given: hydrALAZINE [Apresoline] 25 mg PO BID #60 tab Transmission Status: Pending to [facility] Nitroglycerin (INPATIENT USE) [Nitrostat] 0.4 mg SUBLINGUAL Q5M PRN #10 tab.subl PRN Reason: Cardiac/Chest Pain Transmission Status: Pending to [facility] Orders to be completed after discharge: Cardiovascular/Thoracic Surgery Location: None Selected Primary Care Physician: Christopher Foy MD [Primary Care Provider] - Within 1 Week Test Results: Test results from this visit will be discussed in further detail at your follow- up appointment, if applicable. Please Follow Up With: Robert Tompkins MD When: 2-4 weeks Proposed Discharge Date: 01/29/19
--- NOTE | 2019-01-29 09:25 | DS.PCM_ITS ---
Discharge Date and Diagnosis - Problem List Patient Problems: Active and Suspected Problems (Last Reviewed 01/25/19 @ 09:09 by Rosey Maya DO) Acute on chronic systolic (congestive) heart failure (Acute) Metabolic alkalosis (Acute) Date of Admission: 01/25/19 Date of Discharge: 01/29/19 - Primary Discharge Diagnosis Active and Suspected Problems (Last Reviewed 01/25/19 @ 09:09 by Rosey Maya DO) Acute on chronic systolic (congestive) heart failure (Acute) Metabolic alkalosis (Acute) 1. Acute heart failure with reduced ejection fraction * EF of 29% from December 2018 * Partially attributable to missing dialysis * Currently improved at this time * Patient again to have dialysis today which is her normal dialysis day 2. Ischemic cardiomyopathy * Patient underwent left heart catheterization and received percutaneous coronary intervention to the obtuse marginal artery * And on aspirin, atorvastatin, carvedilol, clopidogrel * Management per cardiology * starting hydralazine 25 BID 3. End-stage renal disease * Dialysis every Monday * Nephrology following 4. Diabetes mellitus type 2 * Fair control at this time * Continue with basal and prandial insulins * Patient's documentations, she has type I as well as type 2 diabetes. I conferred with the patient that she developed diabetes while she was with her daughter, likely gestational diabetes, that just persisted into her diabetes thereafter. 5. Chronic respiratory failure * on 2-3 liters at home * at baseline oxygen. - Secondary Discharge Diagnosis Chronic Problems (Last Reviewed 01/25/19 @ 09:09 by Rosey Maya DO) Ischemic cardiomyopathy (Chronic) EF in December 2018 on a stress test was 29% with extensive wall motion abnormalities COPD (chronic obstructive pulmonary disease) (Chronic) Elevated troponin I level (Chronic) Anemia due to chronic kidney disease (Chronic) CAD (coronary artery disease) (Chronic) Stented coronary artery (Chronic 01/28/19) FFR of LAD 0.82; VIKY of mid LAD with 2.5 X 24 mm Promus Synergy, OM <50% stenosis per Dr. Magdaleno @ [facility];Occluded mid LAD stent with L to R collaterals. Double vessel CAD of the LCX and OM#1 Segmented LV systolic dysfunction- Severe LVEF: by LV gram 25 % Elevated Left Ventricular End Diastolic Pressure Successful PCI with PTCA to the proximal OM#1 with a 1.5 and 2.0 mm balloon; unable to advance new deflated balloon beyond mid OM due to calcification. No dissection, no stents placed and pt had no symptoms . Successful PTCA/VIKY to mid LCX with 2.25 x 12 Promus Synergy, post dilated with a 2.25 x 8 NC Balloon; 75%-->0%, no dissection. ESRD (end stage renal disease) on dialysis (Chronic) Decubitus ulcer, stage III (Chronic) GABRIEL (obstructive sleep apnea) (Chronic) Depression (Chronic) Anxiety (Chronic) HTN (hypertension) (Chronic) S/P repair of PDA (patent ductus arteriosus) (Chronic) At young age Diabetes mellitus type 1 (Chronic) Hyperlipidemia (Chronic) Obesity (BMI 30.0-34.9) (Chronic) Gastroparesis (Chronic) Hospital Course and Treatment Imaging Results: Clinical Impression(s) from Imaging Studies Chest X-Ray 01/25/19 08:40 IMPRESSION: CHF with small bilateral pleural effusions and bibasilar atelectasis and/or infiltrates. Electronically Signed: Josh Hill, at 13:25 EDT , Service support , Consultations 01/27/19 15:47 Consult: Onc/Wound/senior behavioral scientist Routine Comment: Reason for Consult:: wound to right heel Josse Magdaleno MD: cardiology. MD Juan Alberto: nephrology. Operations: None Procedures: Cardiac catheterization, Dialysis Summary of Care Provided: The patient is a 43 year old F presents with shortness of breath and lower extremity edema secondary to CHF. Patient had an echocardiogram showing EF at 35% which was decreased from 45% from June 2018. Patient underwent left heart catheterization and had a stent placed to the twos marginal artery. That was performed on 28 January. Patient otherwise his course has been uncomplicated. Cardiology recommended starting patient on 25 mg twice daily of hydralazine. Other medications, including aspirin and clopidogrel will be continued. Given patient's end-stage renal disease, she is not a candidate for an CAM inhibitor nor angiotensin receptor lewis. [] Patient Problems: Active and Suspected Problems (Last Reviewed 01/25/19 @ 09:09 by Rosey Maya DO) Acute on chronic systolic (congestive) heart failure (Acute) Metabolic alkalosis (Acute) - Physical Exam General: Alert, No apparent distress, - - Appears older than stated age HEENT: Atraumatic, Normocephalic Oral: Moist Mucosa, No Gingival or Mucosal Lesions/ Ulcerations Neck: No Nodes, Thyroid Normal Size and Texture Lungs: Clear to auscultation, Normal air movement, No rhonchi, No wheeze, No rales Cardiovascular: Regular rate, Regular Rhythm, Normal S1, Normal S2, No murmurs Vital Signs Temp Pulse Resp BP Pulse Ox 36.8 C 67 16 81/36 L 100 01/29/19 08:00 01/29/19 09:00 01/29/19 09:00 01/29/19 09:00 01/29/19 09:00 Oxygen Flow Rate (L/min) 3 Oxygen Delivery Method Nasal Cannula Weight: 89.5 kg Body Mass Index (BMI) 32.3 Finger Stick Blood Glucose 118 Intake and Output for Last 24 Hours 01/27/19 01/28/19 01/29/19 23:59 23:59 23:59 Intake Total 1100 / 1100 991 / 991 300 / 300 Output Total 3400 / 3400 Balance 1100 / 1100 -2409 / -2409 300 / 300 Laboratory Tests Past 24 Hrs 01/28/19 01/28/19 01/29/19 09:33 11:32 03:00 WBC RBC Hgb Hct MCV MCH MCHC RDW RDW Differential Plt Count MPV Activated Clotting Time 202 H 153 H Sodium 142 Potassium 4.4 Chloride 108 H Carbon Dioxide 27.0 Anion Gap 7 BUN 25 H Creatinine 4.20 H Estim Creat Clear Calc 15.83 Est GFR (MDRD) Af Amer 15 L Est GFR (MDRD) Non-Af 12 L BUN/Creatinine Ratio 6.0 L Glucose 157 H Calcium 7.2 L 01/29/19 03:00 WBC 4.6 RBC 2.38 L Hgb 7.9 L Hct 26.2 L MCV 110.1 H MCH 33.2 H MCHC 30.2 L RDW 16.3 H RDW Differential 62.4 H Plt Count 84 L MPV 9.8 Activated Clotting Time Sodium Potassium Chloride Carbon Dioxide Anion Gap BUN Creatinine Estim Creat Clear Calc Est GFR (MDRD) Af Amer Est GFR (MDRD) Non-Af BUN/Creatinine Ratio Glucose Calcium POC Glucose 01/29/19 01/28/19 01/28/19 08:06 22:05 20:10 POC Glucose 149 H 182 H 86 01/28/19 12:34 POC Glucose 163 H Discharge Diet: Low fat/ Low Cholesterol, 1800 Calorie Control Diet, 6 Cup Fluid Restriction, 2000 mg Sodium Diet Discharge Activity: Return to Normal Activity Weight Bearing Status: Weight bearing as tolerated Call your doctor if your incision/area has: Continuous Slow Oozing, Sudden Increased Bleeding, Increased Pain/ Swelling, Increased Redness Call your doctor if you observe: Fever of 101 or Higher, Shortness of breath, Chest pain Home Medications: Medications to take at Discharge Aspirin [Aspirin, Baby] 81 mg PO DAILY@0800 01/26/16 Calcium Acetate [Phoslo Gel Cap] 1,334 mg PO TIDCM 01/26/16 Ergocalciferol [Vitamin D] 50,000 unit PO MO 01/26/16 Insulin Aspart [Novolog Flexpen] 10 units SC TIDCM 01/26/16 Insulin Glargine,Hum.rec.anlog [Lantus] 5 unit SQ QHS 01/09/17 proMETHazine tablet [Phenergan tablet] 25 mg PO Q6H PRN PRN #10 tab 03/06/17 Sodium Bicarbonate 650 mg PO 4X/DAY 03/29/17 Atorvastatin Calcium [Lipitor] 10 mg PO QHS 05/26/18 Carvedilol [Coreg] 25 mg PO BID 05/26/18 Loperamide HCl [Imodium A-D] 2 mg PO TID PRN 05/26/18 Pantoprazole Sodium [Protonix] 20 mg PO BID 05/26/18 Clopidogrel Bisulfate [Plavix] 75 mg PO DAILY 07/01/18 ALPRAZolam [Xanax] 0.5 mg PO MOWEFR PRN 08/09/18 B Complex W-C No.20/Folic Acid [Nephrocaps Softgel] 1 mg PO MOWEFR 08/09/18 Fluoxetine HCl 40 mg PO DAILY 08/09/18 Lidocaine/Prilocaine HCl [Emla Cream W/Tegaderm] 1 applicatio TOPICAL MOWEFR 10/01/18 Nystatin Powder [Mycostatin Powder] 1 applic TOPICAL BID PRN 10/14/18 hydrOXYzine tablet [Atarax tablet] 10 mg PO MOWEFR 11/06/18 Melatonin 10 mg PO QHS PRN 12/14/18 Sodium Chloride 0.65% [[place] Nasal [place]] 2 spray NASAL TID PRN PRN spray.btl 12/14/18 Isosorbide Mononitrate [Imdur] 60 mg PO DAILY #30 tablet 01/01/19 Lisinopril [Zestril] 10 mg PO DAILY #30 tablet 01/01/19 Hydrocodone/Acetaminophen [[place] 5-325 Tablet] 1 ea PO Q6H PRN PRN 01/25/19 Acetaminophen [Tylenol Tablet] 650 mg PO Q6H PRN PRN tab 01/29/19 Nitroglycerin (INPATIENT USE) [Nitrostat] 0.4 mg SUBLINGUAL Q5M PRN #10 tab.subl 01/29/19 hydrALAZINE [Apresoline] 25 mg PO BID #60 tab 01/29/19 Following Prescrptions Were Given to Patient: hydrALAZINE [Apresoline] 25 mg PO BID #60 tab Transmission Status: Pending to [facility] Nitroglycerin (INPATIENT USE) [Nitrostat] 0.4 mg SUBLINGUAL Q5M PRN #10 tab.subl PRN Reason: Cardiac/Chest Pain Transmission Status: Pending to [facility] Other Amb Orders: Cardiovascular/Thoracic Surgery Location: None Selected Primary Care Physician: Christopher Foy MD [Primary Care Provider] - Within 1 Week Please Follow Up With: Robert Tompkins MD When: 2-4 weeks Patient Instructions: Heart Failure: Tracking Your Weight, Heart Failure: Making Changes to Your Diet Disposition: Home Minutes spent on discharge:: 32 Patient Condition:: Fair Medical Necessity - Tobacco Use Smoking Status: Former smoker Tobacco Use: Non-smoker Meaningful Use Info Meaningful Use Diagnoses (Choose all that apply): CHF - CHF CAM/ARB ordered at discharge?: No Reason CAM/ARB not ordered?: Worsening renal dysfunctn Documented LVEF (%): 35 Code Visit Inpatient E&M: 31743 Disch Hosp
--- NOTE | 2019-01-29 09:28 | CASEMGMT ---
MALLORY SCHUMACHER Note. Intro role of CM to patient. Pt is requesting a portable concentrator for discharge. RN WINSOME inquired if she has spoken with her PCP or Vending Route Driver re: this prior to admission. Pt states she has not. Informed pt that this needs to be ordered through her PCP or Vending Route Driver. Pt does have portable tanks at home and her S.O. will bring in to hospital when greg WEISS is DME provider. Colin CURTISN RN ACM
--- NOTE | 2019-01-29 10:00 | EKG12_ITS ---
Test Reason : AM Blood Pressure : / mmHG Vent. Rate : 069 BPM Atrial Rate : 069 BPM P-R Int : 132 ms QRS Dur : 086 ms QT Int : 420 ms P-R-T Axes : 044 067 203 degrees QTc Int : 450 ms Normal sinus rhythm T wave abnormality, consider inferolateral ischemia Abnormal ECG When compared with ECG of 28-JAN-2019 06:08, MANUAL COMPARISON REQUIRED, DATA IS UNCONFIRMED Confirmed by WM UNDERWOOD ([id number]), editor managing director KEVIN WALTERS ([id number]) on 01/31/2019 1:53:49 PM Referred By: Alex Ravi Confirmed By:WM UNDERWOOD
--- NOTE | 2019-01-30 14:10 | CASEMGMT ---
MALLORY SCHUMACHER DC PHONE CALL DC DATE: 01/29/18 DC Disposition: Home Diagnosis on Discharge: CHF LACE/STRATA: 03/26 Intro role of CM to patient via phone. Pt states she is feeling good, no questions re: dc instructions, prescriptions or f/u. No care improvement suggestions given. Colin CURTISN RN ACM
== END 2019-01-29 10:50 | disposition home or self-care (01) | DRG 246 ==
LOC: PCU 01-28 07:22 → ICU 01-28 10:04
PROVIDERS: Internal Medicine; Internal Medicine Cardiovascular Disease; Nurse Practitioner Family; Admitting Provider Hospitalist; Family Provider Family Medicine; PCP Family Medicine; Referring Provider Hospitalist
DX: I13.2 Hypertensive heart and chronic kidney disease with heart failure and with stage 5 chronic kidney disease, or end stage renal disease (principal); I50.23 Acute on chronic systolic (congestive) heart failure; N18.6 End stage renal disease; J96.11 Chronic respiratory failure with hypoxia; E87.3 Alkalosis; E11.22 Type 2 diabetes mellitus with diabetic chronic kidney disease; I25.10 Atherosclerotic heart disease of native coronary artery without angina pectoris; I25.5 Ischemic cardiomyopathy; E78.5 Hyperlipidemia, unspecified; Z99.81 Dependence on supplemental oxygen; J44.9 Chronic obstructive pulmonary disease, unspecified; D63.1 Anemia in chronic kidney disease; G47.33 Obstructive sleep apnea (adult) (pediatric); Z99.2 Dependence on renal dialysis; F41.9 Anxiety disorder, unspecified; F32.9 Major depressive disorder, single episode, unspecified; Z93.3 Colostomy status; Z79.4 Long term (current) use of insulin; Z87.891 Personal history of nicotine dependence; Z87.74 Personal history of (corrected) congenital malformations of heart and circulatory system; E66.9 Obesity, unspecified; Z68.32 Body mass index [BMI] 32.0-32.9, adult
CPT/HCPCS: 36415; 71046; 80048; 82962; 84100; 85027; 85347; 85610; 85730; 87449; 87633; 90937; 92921; 92928; 93005; 93306; 93458; 97802; 99406; J7030; Q9957; A4216; C1725; C1769; C1874; C1887; C1894; C9600; G0257; Q9967

== ENCOUNTER → 2019-02-07 | Outpatient (CLI) | payer MEDICARE, SELFPAY ==
[2019-01-29 10:02] VITALS: BMI 32.3
--- NOTE | 2019-02-08 15:36 | STRESSREP ---
Stress Test Report Myocardial viability stress test. 43-year-old lady with a history of coronary artery disease and occluded left anterior descending artery and recent angioplasty of the left circumflex artery. 4.2 mCi of thallium 201 was injected at rest and for stress images obtained. The patient was brought back and 24 rest redistribution images were obtained. Images were reconstructed in comparing the short axis vertical long and horizontal long axis. Review of the images demonstrates a medium to large size defect noted involving the mid to distal anterior wall apex and inferior apical wall. The lateral wall mid anterior wall and mid septum all appear to be well perfused. There is mildly reduced perfusion noted in the mid inferior wall. The 24 rest redistribution images demonstrate a similar pattern. There is no improvement to suggest viability in the distal anterior wall and apex and inferoapical wall. Conclusion: Rest redistribution thallium 201 study demonstrating no evidence of viability noted in the distal anterior wall, apex, inferior apical wall.
== END | disposition home or self-care (01) ==
PROVIDERS: Family Provider Family Medicine; PCP Family Medicine; Referring Provider Internal Medicine Cardiovascular Disease; Visit Provider Internal Medicine Cardiovascular Disease
DX: I25.10 Atherosclerotic heart disease of native coronary artery without angina pectoris (principal); I25.5 Ischemic cardiomyopathy; Z95.5 Presence of coronary angioplasty implant and graft; N18.6 End stage renal disease; Z99.2 Dependence on renal dialysis
CPT/HCPCS: 78451; A9505

== ENCOUNTER 2019-02-17 21:39 | Emergency (ER) | payer MEDICARE, SELFPAY ==
[2019-01-29 10:02] VITALS: BMI 32.3
[2019-02-17 21:40] VITALS: BP 112/51; PULSE 82; RESP 16; TEMP 36.3; BMI 31.8
--- NOTE | 2019-02-17 22:36 | ED.DCSUM_ITS ---
History of Present Illness Chief Complaint: Other, Pain/Inj Informant: Patient Onset: Yesterday Context: Sudden Onset Timing: Continuous Quality: Pain right index and ring finger, paresthesia and discoloration Location: Right upper extremity Current Severity: Moderate Maximum Severity: Moderate Worsened by: Nothing Relieved by: Nothing Associated Symptoms: Increased pain and numbness Narrative: Patient is a 43-year-old woman with multiple medical problems who was seen at [facility] emergency room yesterday and transferred to [facility] in [place] for vascular insufficiency of the right upper extremity. She had arterial studies which revealed she needs/will need vascular intervention per patient. She states the pain has increased since she was discharged in the hospital. She now has numbness in her index and ring finger. 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 She denies history of autoimmune disorder. She denies fever, chills or night sweats. She denies nausea, vomiting diarrhea. She denies cardiac or respiratory symptoms. She is presently on cephalexin for cellulitis left anterior leg. She states she initially was treated with IV vancomycin. Prior similar symptoms: Yes Recent Illness/Hospitalization: Yes - Past Medical History (1) Peripheral arterial disease Status: Acute (2) Acute on chronic systolic (congestive) heart failure Status: Acute (3) Anemia due to chronic kidney disease Status: Chronic (4) CAD (coronary artery disease) Status: Chronic (5) COPD (chronic obstructive pulmonary disease) Status: Chronic (6) Depression Status: Chronic (7) ESRD (end stage renal disease) on dialysis Status: Chronic (8) Gastroparesis Status: Chronic (9) HTN (hypertension) Status: Chronic (10) Hyperlipidemia Status: Chronic (11) Ischemic cardiomyopathy Status: Chronic Comment: EF in December 2018 on a stress test was 29% with extensive wall motion abnormalities (12) GABRIEL (obstructive sleep apnea) Status: Chronic (13) Obesity (BMI 30.0-34.9) Status: Chronic (14) S/P repair of PDA (patent ductus arteriosus) Status: Chronic Comment: At young age Past Medical History - Allergies and Home Meds Allergies/Adverse Reactions: Allergies latex Allergy (Verified 02/17/19 21:45) Rash prochlorperazine [From Compazine] Allergy (Verified 02/17/19 21:45) Unknown levofloxacin [From Levaquin] Adverse Reaction (Verified 02/17/19 21:45) PT CAN'T REMEMBER PT CAN'T REMEMBER metoclopramide HCl [From Reglan] Adverse Reaction (Verified 02/17/19 21:45) Nausea NSAIDS (Non-Steroidal Anti-Inflamma Adverse Reaction (Verified 02/17/19 21:45) kidney function oxycodone HCl [From Percocet] Adverse Reaction (Verified 02/17/19 21:45) HALLUCINATIONS Primary Care Physician: Christopher Foy MD [Primary Care Provider] - Prior records reviewed: Yes Surgical History: angioplasty, appendectomy, hysterectomy, - Smoking Status: Current every day smoker Alcohol: None Drugs: None - Family History Maternal Family History: Family History (This Medical Record has been edited. Action required.) Father Diabetes Mother Kidney disease CVA (cerebral vascular accident) Hypertension Diabetes Cancer Family History: Reports: Cancer, COPD, Diabetes, Hypertension, Renal Disease, Stroke Additional Family History: Father also has diabetes Paternal Family History: Family History (This Medical Record has been edited. Action required.) Father Diabetes Mother Kidney disease CVA (cerebral vascular accident) Hypertension Diabetes Cancer Family History: Reports: Diabetes Sibling Family History: Family History (This Medical Record has been edited. Action required.) Father Diabetes Mother Kidney disease CVA (cerebral vascular accident) Hypertension Diabetes Cancer Family History: Reports: Cancer, Diabetes Review of Systems General: Denies: Chills, Fever, Malaise, Sweats Eyes: Denies: Visual changes - bilaterally, Blurred Vision - bilaterally, Diplopia ENT: Denies: Rhinorrhea, Sore throat Cardiovascular: Denies: Chest pain, Palpitations Respiratory: Denies: Dyspnea, Cough, Dyspnea on exertion Gastrointestinal: Denies: Abdominal pain, Nausea, Vomiting, Diarrhea, Melena, Hematochezia Genitourinary: Denies: Dysuria, Hematuria, Frequency Musculoskeletal: Reports: Myalgias, Extremity Pain. Denies: Arthralgias, Neck pain, Back pain, Swelling Skin: Reports: Wounds. Denies: Rash, Abscess Neurological: Reports: Parasthesia, Numbness. Denies: Headache Psych: Reports: Depression Hematologic: Reports: Easy bruising Physical Exam Vital Signs/Narrative: Vital Signs Temp Pulse Resp BP 02/17/19 21:40 97.3 F L 82 16 112/51 L General: Well nourished, Well developed, No Acute Distress Head: Normocephalic, Atraumatic Eyes: Perrl, EOMI, Pale conjunctiva. Negative for: Scleral icterus ENT: Moist mucous membranes, No rhinorrhea Neck: Supple, Nontender, No lymphadenopathy, No JVD Cardiovascular: Regular rate, Regular rhythm, Normal S1, Normal S2, - - Tones are distant. Respiratory: No distress, CTA bilaterally, Chest nontender Abdomen: Soft, Nontender, Nondistended, Normal bowel sounds Back: Nontender, Normal Inspection Extremities: No edema, - - Has altered sensation of her right index, long, ring and little finger. There is delayed cap refill and all her right fingers. She has cyanosis involving the distal aspect of the right index and right ring finger. Skin: Normal color, No rash Neurological: Alert, Oriented x3, Cranial nerves II-XII grossly intact, Normal Strength, Normal Sensation, Normal DTR Psychological: Normal affect, Normal Mood Diagnostic/Tx/Re-eval Laboratory Results 02/17/19 02/17/19 02/17/19 22:25 22:25 22:25 WBC 4.8 RBC 2.33 L Hgb 8.0 L Hct 26.0 L MCV 111.6 H MCH 34.3 H MCHC 30.8 L RDW Std Deviation 67.1 H RDW Coeff of Scott 16.5 H Plt Count 102 L MPV 10.2 Immature Gran % (Auto) 0.800 Neut % (Auto) 78.7 H Lymph % (Auto) 10.1 L Hopkins % (Auto) 5.0 Eos % (Auto) 5.2 H Baso % (Auto) 0.2 Absolute Neuts (auto) 3.8 Absolute Lymphs (auto) 0.49 L Nucleated RBC % 0 PT 16.2 H INR 1.3 APTT 34.5 Sodium 137 Potassium 4.2 Chloride 100 Carbon Dioxide 30.0 Anion Gap 7 BUN 46 H Creatinine 7.13 H Estim Creat Clear Calc 9.33 Est GFR (MDRD) Af Amer 8 L Est GFR (MDRD) Non-Af 7 L BUN/Creatinine Ratio 6.5 L Glucose 161 H Calcium 9.5 - Medical Decision Making Based on patient's information of peripheral arterial disease and need for follow-up with vascular surgeon [facility] transfer line was contacted. I was informed by the transfer nurse that the vascular surgeon Dr. Kirkland who saw her felt this was not an arterial emergency. The hospitalist was contacted. I spoke with Dr. Becerra. She requested that I speak with vascular and unless they are on board she would not accept patient. I was informed by Dr. Kirkland that patient had arterial study and venous duplex of her right upper extremity and the studies were unremarkable and there is no evidence of arterial insufficiency. He informed me that he made multiple recommendations in his consult prior to patient's discharge. I requested that the transfer person at [facility] recontact medicine and for medicine to reconsider their position. I was informed that an IV was placed in her right index finger which may contribute to her pain and paresthesia and discoloration. Patient was medicated with IV Dilaudid and Zofran for pain and nausea. Blood work was obtained based on initial information because of concern for heparini zation. Now knowing that she does not have arterial insufficiency need to evaluate cardiac etiology, ray nods disease and other causes of cyanosis of the digits. Was accepted by Dr. Alvarado at 2303. Arrangements for transfer are being made. ED Disposition - Plan for ED Patient: Disposition: [facility] Diagnosis: Cyanosis of tip of finger, ESRD (end stage renal disease) on dialysis, Anemia due to chronic kidney disease, Ischemic cardiomyopathy Referrals: Christopher Foy MD [Primary Care Provider] -
[2019-02-17 22:41] LABS: Absolute Lymphocyte Count 0.49 X10^3/uL (0.83-4.51); Absolute Neutrophil Count 3.8 X10^3/uL (2.0-7.7); Basophil# 0.01 X10^3/uL; Basophil% 0.2 % (0-1); Eosinophil# 0.25 X10^3/uL; Eosinophils% 5.2 % (0-5); Lymphocyte # 0.49 X10^3/ul (4.0); Lymphocyte % 10.1 % (19-41); Mean Corp Hgb Conc 30.8 g/dL (32-36); Mean Corpuscular Hgb 34.3 pg (27.0-32.0); Mean Corpuscular Volume 111.6 fL (81-99); Mean Platelet Vol. 10.2 fl (6.2-12.0); Monocyte# 0.24 X10^3/uL; NRBC Flagged by Analyzer 0 % (0-5); Neutrophil # 3.81 X10^3/uL (2.7-7.7); Neutrophil % 78.7 % (47-70); POSITIVE DIFFERENTIAL YES; POSITIVE MORPHOLOGY YES; Platelet Count 102 K/mm3 (150-450); RBC Distribution Width CV 16.5 % (11.6-14.6); RBC Distribution Width SD 67.1 fl (35.1-43.9); Red Blood Count 2.33 M/mm3 (4.2-5.4); White Blood Count 4.8 K/mm3 (4.4-11.0)
[2019-02-17] MEDS: Ondansetron 4 MG/2 ML Vial IV (22:41)
[2019-02-17] MEDS: HYDROmorphone 0.5 MG/0.5 ML SYRINGE IV ×2 (22:41→23:47)
[2019-02-17 22:48] LABS: Differential Indicated SCAN CRITERIA MET
[2019-02-17 22:50] LABS: International Normalized Ratio 1.3; Prothrombin Time (Protime)PT. 16.2 SECONDS (11.7-14.9)
[2019-02-17 22:51] LABS: Partial Thromboplast Time 34.5 Seconds (24.1-36.2)
[2019-02-17 22:57] LABS: Anion Gap 7 (5-15); BUN 46 mg/dL (7-18); BUN/Creat Ratio 6.5 RATIO (10-20); Calcium,Total 9.5 mg/dL (8.5-10.1); Chloride 100 mmol/L (98-107); Creatinine, Serum 7.13 mg/dL (0.55-1.02); EST Glomerular Filtration Rate 7 mL/min (>60); Est Glom Filt Rate - Afr Amer 8 mL/min (>60); Estimated Creatinine Clearance 9.33 ml/min; Glucose 161 mg/dL (74-106); Potassium 4.2 mmol/L (3.5-5.1); Sodium Level 137 mmol/L (136-145)
[2019-02-17 23:14] LABS: Anisocytosis 1+; Differential Comment SCANNED; Hypochromasia RARE; Microcytosis 1+; Polychromasia RARE
[2019-02-17 23:22] VITALS: BP 128/78; PULSE 82; RESP 18; O2SAT 96
[2019-02-18 00:08] VITALS: BP 128/78; PULSE 82; RESP 18; O2SAT 96
== END 2019-02-18 00:09 | disposition short-term general hospital (02) ==
PROVIDERS: Emergency Provider Emergency Medicine; Family Provider Family Medicine; PCP Family Medicine
DX: R23.0 Cyanosis (principal); M79.644 Pain in right finger(s); R20.2 Paresthesia of skin; I13.2 Hypertensive heart and chronic kidney disease with heart failure and with stage 5 chronic kidney disease, or end stage renal disease; N18.6 End stage renal disease; I50.23 Acute on chronic systolic (congestive) heart failure; Z99.2 Dependence on renal dialysis; D63.1 Anemia in chronic kidney disease; I25.5 Ischemic cardiomyopathy; L03.116 Cellulitis of left lower limb; I25.10 Atherosclerotic heart disease of native coronary artery without angina pectoris; F32.9 Major depressive disorder, single episode, unspecified; K31.84 Gastroparesis; E78.5 Hyperlipidemia, unspecified; G47.33 Obstructive sleep apnea (adult) (pediatric); E66.9 Obesity, unspecified; I73.9 Peripheral vascular disease, unspecified; J44.9 Chronic obstructive pulmonary disease, unspecified; Z87.74 Personal history of (corrected) congenital malformations of heart and circulatory system; Z79.82 Long term (current) use of aspirin; Z79.02 Long term (current) use of antithrombotics/antiplatelets; Z79.4 Long term (current) use of insulin; Z79.899 Other long term (current) drug therapy; F17.200 Nicotine dependence, unspecified, uncomplicated
CPT/HCPCS: 80048; 85025; 85610; 85730; 96374; 96375; 99284; A4216; J2405

== ENCOUNTER 2019-02-27 11:23 | Emergency (ER) | payer MEDICARE, SELFPAY ==
[2019-02-27 11:23] VITALS: BP 145/62; PULSE 87; RESP 16; TEMP 36.9; O2SAT 94; BMI 31.8
[2019-02-27 13:09] LABS: Absolute Lymphocyte Count 0.61 X10^3/uL (0.83-4.51); Absolute Neutrophil Count 3.9 X10^3/uL (2.0-7.7); Basophil# 0.02 X10^3/uL; Basophil% 0.4 % (0-1); Eosinophil# 0.31 X10^3/uL; Eosinophils% 6.2 % (0-5); Hematocrit 28.2 % (37-47); Hemoglobin 8.8 g/dL (12.0-15.0); Lymphocyte # 0.61 X10^3/ul (4.0); Lymphocyte % 12.1 % (19-41); Mean Corp Hgb Conc 31.2 g/dL (32-36); Mean Corpuscular Hgb 34.8 pg (27.0-32.0); Mean Corpuscular Volume 111.5 fL (81-99); Monocyte# 0.17 X10^3/uL; Monocyte% 3.4 % (0-10); NRBC Flagged by Analyzer 0 % (0-5); Neutrophil % 77.3 % (47-70); POSITIVE MORPHOLOGY YES; RBC Distribution Width CV 18.1 % (11.6-14.6); RBC Distribution Width SD 73.7 fl (35.1-43.9); Red Blood Count 2.53 M/mm3 (4.2-5.4)
[2019-02-27 13:11] LABS: Differential Indicated SCAN CRITERIA MET
[2019-02-27 13:13] LABS: Platelet Count 103 K/mm3 (150-450)
[2019-02-27 13:21] LABS: Anion Gap 2 (5-15); BUN 14 mg/dL (7-18); BUN/Creat Ratio 4.1 RATIO (10-20); Calcium,Total 8.1 mg/dL (8.5-10.1); Chloride 98 mmol/L (98-107); Creatinine, Serum 3.42 mg/dL (0.55-1.02); EST Glomerular Filtration Rate 15 mL/min (>60); Est Glom Filt Rate - Afr Amer 19 mL/min (>60); Estimated Creatinine Clearance 19.45 ml/min; Glucose 150 mg/dL (74-106); Potassium 3.6 mmol/L (3.5-5.1); Sodium Level 139 mmol/L (136-145)
--- NOTE | 2019-02-27 13:25 | RAD_ITS ---
STUDY: X-RAY - RIGHT FOOT CLINICAL: Female, 43 years old. Possible osteomyelitis. TECHNIQUE: 3 view(s) of the foot. COMPARISON: None. FINDINGS: Normal talus, calcaneus, and tarsal bones. Normal visualized subtalar, talonavicular, calcaneocuboid, tarsal and tarsometatarsal articulations. Normal metatarsi. Normal metatarsophalangeal joint of the great toe. Normal tibial and fibular sesamoid bones. Normal interphalangeal joint of the great toe. Normal phalanges of the great toe. Normal second through fifth metatarsophalangeal joints. Normal interphalangeal joints and phalanges of the lesser toes. There is no demonstrated soft tissue swelling. Vascular calcification. RAD/Foot min 3 Views IMPRESSION: Soft tissue swelling. No radiographic evidence of osteomyelitis. Electronically Signed: Josh Hill, at 13:41 EDT , Service support ,
--- NOTE | 2019-02-27 13:57 | ED.RN ---
PT REQUESTING PAIN M EDICATION FOR HAND AND FOOT. AWARE. NO NEW ORDERS AT THIS TIME
[2019-02-27 14:03] LABS: Anisocytosis RARE
--- NOTE | 2019-02-27 15:22 | ED.DCSUM_ITS ---
- ER Visit Summary Date of Service: 02/27/19 Chief Complaint: Right foot cellulitis concern for getting worse History of Present Illness: The patient is a 43 F history of diabetes, CAD, CHF, end-stage renal disease with dialysis, anemia, cardiomyopathy and cardiac stents. Patient states he was recently admitted all the hospital was treated for cellulitis of right foot. Currently is on clindamycin at home. Is concerned the great toe and second toes look like it slightly worse. She denies any fever. She states she has an extensive vascular work-up at [place] while she was there. Physical Examination: Middle-aged female no acute distress. Vital signs are stable. HEENT exam unremarkable. Neck nontender. Lungs clear to auscultation. Heart regular rhythm no murmur. Abdomen is soft and nontender. Extremities moves all 4. Nontender. No edema. Her right foot on the great toe and second toe there is no redness. No significant warmth. Small amount of bruising. No lymphangitic streaking. No crepitance or subcu air. No necrotic tissue. She is able to dorsi and plantarflex both feet. She has touch sensation. She has a palpable DP pulse. Calves nontender no edema. Neurologically she is awake and alert and moving her extremities. Test Results: CBC shows a white count of 5. Hemoglobin 8.8 which is her baseline. No bands. Electrolytes show a creatinine of 3.4 which is her baseline with end-stage renal disease. Right foot x-ray (3 views)shows mild soft tissue swelling. But no osteomyelitis read both by myself and the radiologist. Emergency Department Course and Treatment: Repeat exam the patient is doing well at 1520 1 PM. The foot is no worse. She denied discussed her test results. She is comfortable being discharged home to continue on her clindamycin. She has a scheduled appointment to see her primary care physician next week. She knows to return if getting worse or follow-up sooner. Treatment Plan: Continue current antibiotic. Follow-up with her PCP. Disposition: Discharge Impression: Right foot cellulitis History diabetes History of end-stage renal disease and dialysis History of cardiomyopathy with cardiac stents This note was generated with [employer] software. It may contain incorrect words, spelling, and punctuation that were not noted in review of the chart prior to signing ED Disposition - Plan for ED Patient: Referrals: Christopher Foy MD [Primary Care Provider] -
--- NOTE | 2019-02-27 15:27 | ED.DEP ---
ED Disposition - Plan for ED Patient: Disposition: Home or Assisted Living Instructions: Cellulitis Referrals: Christopher Foy MD [Primary Care Provider] - Keep Debbie appointment Additional Instructions: Continue your current antibiotic for clindamycin. Return if looking a lot worse specifically if the whole foot gets red or you develop streaks up in your leg or fever. Follow-up with your scheduled doctor's appointment.
[2019-02-27 15:38] VITALS: BP 136/45; PULSE 97; RESP 20; O2SAT 97
[2019-02-27 15:43] VITALS: BP 136/45; PULSE 97; RESP 20; O2SAT 97
== END 2019-02-27 15:45 | disposition home or self-care (01) ==
PROVIDERS: Emergency Provider Emergency Medicine; Family Provider Family Medicine; PCP Family Medicine
DX: L03.115 Cellulitis of right lower limb (principal); R11.2 Nausea with vomiting, unspecified; E11.22 Type 2 diabetes mellitus with diabetic chronic kidney disease; I13.2 Hypertensive heart and chronic kidney disease with heart failure and with stage 5 chronic kidney disease, or end stage renal disease; I50.9 Heart failure, unspecified; N18.6 End stage renal disease; Z99.2 Dependence on renal dialysis; I42.9 Cardiomyopathy, unspecified; I25.10 Atherosclerotic heart disease of native coronary artery without angina pectoris; D64.9 Anemia, unspecified; Z95.5 Presence of coronary angioplasty implant and graft; Z79.4 Long term (current) use of insulin; Z79.82 Long term (current) use of aspirin; Z79.02 Long term (current) use of antithrombotics/antiplatelets; Z79.899 Other long term (current) drug therapy; Z87.891 Personal history of nicotine dependence
CPT/HCPCS: 73630; 80048; 85025; 99285; A4216

== ENCOUNTER 2019-03-03 06:30 | Inpatient (IN) | payer MEDICARE, SELFPAY ==
[2019-02-28 09:07] VITALS: BMI 31.1
[2019-03-03] VITALS (7 sets, daily range): BP systolic 112–152; BP diastolic 53–71; PULSE 84–91; RESP 16–18; TEMP 36.5–37.2; O2SAT 93–99; BMI 32.3; BMI 30.7
--- NOTE | 2019-03-03 06:42 | CT_ITS ---
STUDY: CT ABDOMEN AND PELVIS WITHOUT CONTRAST REASON FOR EXAM: Female, 43 years old. LOW ABD PAIN WITH DIARRHEA, HAS COLOSTOMY. END STAGE RENAL DZ ON DIALYSIS, CHF, CAD WITH STENTS AND CABG, COPD, HTN, DB ON INSULIN, SMOKER, TUBAL LIGATION, HYSTER, RADIATION DOSAGE (If Supplied By Facility): CTDIvol = ( 21.45 ) mGy, DLP = ( 1060.84 ) mGycm TECHNIQUE: Transaxial images were obtained from the dome of the diaphragm to the symphysis pubis without oral contrast, and without intravenous contrast. Sagittal and coronal images were reconstructed. Individualized dose optimization techniques were used for this CT. COMPARISON: 05/02/2018 FINDINGS: There are chronic interstitial fibrotic changes of the lung bases. The visualized portions of the heart are within normal limits. Normal liver. Normal gallbladder and extrahepatic biliary system. Normal spleen. Normal pancreas. There is a stable small, circumscribed, smooth, low attenuation left adrenal mass, consistent with an adrenal adenoma. Normal right adrenal gland. Both kidneys are normal in size position and contour without evidence of obstruction or mass. There do appear heavy renal vascular calcifications and there is mild nonspecific perinephric stranding. Stomach is partially contracted otherwise unremarkable. Normal small intestine. Colostomy is noted midline. More inferior to the colostomy asymmetric to the right at there appears a abdominal wall defect that extends to the right abdominal wall but only fat is seen entering this hernia. There is non-visualization of the appendix. There is diffuse atherosclerotic calcification of the abdominal aorta, without a demonstrated aneurysm. Normal inferior vena cava. Normal retroperitoneum. Normal urinary bladder. 2 anterior abdominal wall hernias are noted are stable in size since the previous study measuring respectively 8 and 12 cm in transverse diameter without evidence of incarceration. There are diffuse degenerative changes of the visualized lumbar spine. There is decubitus ulcer posterior to the coccyx. There is heterogeneous osteolytic lesion in the coccyx suggesting osteomyelitis. CT/Abdomen/Pelvis without Cont IMPRESSION: No acute abnormality of the abdomen and pelvis. There is decubitus ulcer posterior to the coccyx. There is heterogeneous osteolytic lesion in the coccyx suggesting osteomyelitis. Electronically Signed: Shamika Alcantar, at 7:54 EDT Tel , Service support ,
--- NOTE | 2019-03-03 06:43 | ED.DCSUM_ITS ---
- ER Visit Summary Date of Service: 03/03/19 Chief Complaint: Abdominal pain History of Present Illness: The patient is a 43 F who complains of abdominal pain. Started yesterday. She complains of sharp diffuse abdominal pain that does not radiate. Nothing really makes it better or worse. She has had nausea without vomiting. She has had loose stools out of her colostomy. She had this colostomy placed about a year and a half ago due to a wound on her sacrum and has not had it reversed due to being on a blood thinner for cardiac disease. Dr. Zhang did her colostomy. She had noted a reddish color to the stools out of her ostomy. She has had decreased p.o. intake today and last night because o f the pain. She took her home pain medications without any relief. She denies any fevers. She is on dialysis Monday and Monday. Physical Examination: Vital signs are reviewed. Patient afebrile. HEENT exam unremarkable. Heart is regular rate and rhythm without murmurs. Lungs are clear to auscultation bilaterally. Abdomen is soft with diffuse tenderness. Th ere is no distention. She has a colostomy with reddish, loose stool in the colostomy bag. There are no skin changes around her ostomy. Her extremities have no edema. Her neurologic exam is normal. Test Results: [] Emergency Department Course and Treatment: Patient was medicated with morphine and Zofran. Treatment Plan: [] Disposition: [] Impression: [] This note was generated with [employer] dictation software. It may contain incorrect words, spelling, and punctuation that were not noted in review of the chart prior to signing <Kike Avitia - Last Filed: 03/03/19 06:43> - ER Visit Summary Date of Service: 03/03/19 Chief Complaint: Patient signed out to me pending test results. Test Results: CBC returns with normal white count. Hemoglobin is 8.7 which is consistent with her prior values. Platelet count is 110,000. Chemistry studies significant for BUN of 45 and creatinine is 6.74. She is dialysis dependent and is due for dialysis tomorrow. LFTs are normal. Stool guaiac did return positive. Emergency Department Course and Treatment: Patient received a small dose of fentanyl and Phenergan for me for continued pain and nausea. CT scan of the abdomen and pelvis shows no acute abnormality in the intestines. There is evidence of a decubitus ulcer posterior to the coccyx with suggestion of osteomy elitis. This was discussed with the patient. On exam she has an area of skin thickening with a very small skin opening. She states that she had a pilonidal cyst repaired to this area about a year and a half ago. Patient's colostomy was performed by Dr. Zhang. I spoke with him and he will follow along if the patient needs colonoscopy or further GI intervention. I will speak with hospitalist regarding admission. She was given a single dose of vancomycin here for treatment of osteomyelitis. Treatment Plan: [] Disposition: Admit Impression: 1. Diarrhea 2. Guaiac positive stool 3. Osteomyelitis of coccyx This note was generated with [employer] dictation software. It may contain incorrect words, spelling, and punctuation that were not noted in review of the chart prior to signing <Anila Bartlett - Last Filed: 03/03/19 08:15> ED Disposition <Kike Avitia - Last Filed: 03/03/19 06:43> <Anila Bartlett - Last Filed: 03/03/19 08:15> - Plan for ED Patient: Referrals: Christopher Foy MD [Primary Care Provider] -
[2019-03-03] MEDS: Morphine 4 MG/ML Syringe IV (06:57)
[2019-03-03] MEDS: Ondansetron 4 MG/2 ML Vial IV ×3 (06:57→22:56)
[2019-03-03 07:00] LABS: Absolute Lymphocyte Count 0.83 X10^3/uL (0.83-4.51); Absolute Neutrophil Count 4.4 X10^3/uL (2.0-7.7); Basophil# 0.04 X10^3/uL; Basophil% 0.7 % (0-1); Eosinophil# 0.37 X10^3/uL; Eosinophils% 6.3 % (0-5); Hematocrit 28.4 % (37-47); Hemoglobin 8.7 g/dL (12.0-15.0); Lymphocyte # 0.83 X10^3/ul (4.0); Mean Corp Hgb Conc 30.6 g/dL (32-36); Mean Corpuscular Hgb 33.7 pg (27.0-32.0); Mean Corpuscular Volume 110.1 fL (81-99); Monocyte# 0.29 X10^3/uL; Monocyte% 4.9 % (0-10); NRBC Flagged by Analyzer 0 % (0-5); Neutrophil # 4.37 X10^3/uL (2.7-7.7); Neutrophil % 73.8 % (47-70); POSITIVE MORPHOLOGY YES; Platelet Count 110 K/mm3 (150-450); RBC Distribution Width CV 16.7 % (11.6-14.6); RBC Distribution Width SD 67.1 fl (35.1-43.9); Red Blood Count 2.58 M/mm3 (4.2-5.4); White Blood Count 5.9 K/mm3 (4.4-11.0)
[2019-03-03 07:02] LABS: Differential Indicated SCAN CRITERIA MET
[2019-03-03 07:16] LABS: ALB/GLOB Ratio 0.7 RATIO (0.9-2.4); AST(SGOT) 17 U/L (15-37); Alanine Aminotransfer ALT/SGPT 17 U/L (13-56); Alkaline Phosphatase 127 U/L (45-117); Anion Gap 7 (5-15); BUN 45 mg/dL (7-18); BUN/Creat Ratio 6.7 RATIO (10-20); Calcium,Total 9.4 mg/dL (8.5-10.1); Chloride 100 mmol/L (98-107); Creatinine, Serum 6.74 mg/dL (0.55-1.02); EST Glomerular Filtration Rate 7 mL/min (>60); Est Glom Filt Rate - Afr Amer 9 mL/min (>60); Estimated Creatinine Clearance 9.87 ml/min; Globulin 4.4 g/dL (2.2-4.2); Glucose 131 mg/dL (74-106); Lipase 219 U/L (73-393); Protein, Total 7.4 g/dL (6.4-8.2); Sodium Level 138 mmol/L (136-145)
[2019-03-03 07:28] LABS: Anisocytosis 1+; Hypochromasia 1+
[2019-03-03] MEDS: fentaNYL 100 MCG/2 ML Ampul 25 MCG IV ×2 (07:50→08:57)
[2019-03-03] MEDS: proMETHazine 25 MG/ML Syringe 12.5 MG IV (07:50)
--- NOTE | 2019-03-03 10:29 | CON.PCM_ITS ---
Reason for Consult Date of Consultation: 03/03/19 Reason for Consultation: blood per stoma History of Present Illness: The patient is a 43 year old F who noted 3 episodes of blood per her stoma yesterday. She noted diffuse abdominal pain with slightly more cramping pain in the upper abdomen. She then noticed which she described as saida blood from her stoma. Her most recent bowel movements have been somewhat blood tinged and less bloody patient still notes cramping abdominal discomfort. She presented emergency department. Her stoma output was noted to be Hemoccult positive.her hemoglobin is 8.7 but the patient has chronic renal failure so this is not particularly unusual for her. - her hemoglobin on January 28 was 9.1. the patient has a past history remarkable for diabetes, coronary disease, COPD and cardiomyopathy. She has a history of chronic renal failure and end-stage dialysis. 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 Required a diverting loop colostomy which I performed on August 17, 2017. I performed colonoscopy prior to her colostomy placement on May 22, 2017 for complaints of diarrhea. Terminal ileum and colon were visually unremarkable at that time. Random biopsies were obtained. terminal ileum revealed increased epithelial lymphocytes and random colon biopsies returned as lymphocytic colitis. there was also felt to be borderline thickened collagen table. This was felt to be nonspecific. Past Medical History Past Medical History (Chronic Problems): Chronic Problems (Last Reviewed 02/20/19 @ 20:33 by Pricila Olson) Ischemic cardiomyopathy (Chronic) EF in December 2018 on a stress test was 29% with extensive wall motion abnormalities COPD (chronic obstructive pulmonary disease) (Chronic) Elevated troponin I level (Chronic) Anemia due to chronic kidney disease (Chronic) CAD (coronary artery disease) (Chronic) Stented coronary artery (Chronic 01/28/19) FFR of LAD 0.82; VIKY of mid LAD with 2.5 X 24 mm Promus Synergy, OM <50% stenosis per Dr. Magdaleno @ [facility];Occluded mid LAD stent with L to R collaterals. Double vessel CAD of the LCX and OM#1 Segmented LV systolic dysfunction- Severe LVEF: by LV gram 25 % Elevated Left Ventricular End Diastolic Pressure Successful PCI with PTCA to the proximal OM#1 with a 1.5 and 2.0 mm balloon; unable to advance new deflated balloon beyond mid OM due to calcification. No dissection, no stents placed and pt had no symptoms . Successful PTCA/VIKY to mid LCX with 2.25 x 12 Promus Synergy, post dilated with a 2.25 x 8 NC Balloon; 75%-->0%, no dissection. ESRD (end stage renal disease) on dialysis (Chronic) Decubitus ulcer, stage III (Chronic) GABRIEL (obstructive sleep apnea) (Chronic) Depression (Chronic) Anxiety (Chronic) HTN (hypertension) (Chronic) S/P repair of PDA (patent ductus arteriosus) (Chronic) At young age Hyperlipidemia (Chronic) Obesity (BMI 30.0-34.9) (Chronic) Gastroparesis (Chronic) Medical History: Medical History (Last Reviewed 02/20/19 @ 20:33 by Pricila Olson) ESRD (end stage renal disease) on dialysis (Chronic) N18.6, Z99.2 Decubitus ulcer, stage III (Chronic) L89.93 GABRIEL (obstructive sleep apnea) (Chronic) G47.33 HTN (hypertension) (Chronic) I10 Hyperlipidemia (Chronic) E78.5 Obesity (BMI 30.0-34.9) (Chronic) E66.9 Gastroparesis (Chronic) K31.84 Allergies latex Allergy (Verified 03/03/19 06:35) Rash prochlorperazine [From Compazine] Allergy (Verified 03/03/19 06:35) Unknown levofloxacin [From Levaquin] Adverse Reaction (Verified 03/03/19 06:35) PT CAN'T REMEMBER PT CAN'T REMEMBER metoclopramide HCl [From Reglan] Adverse Reaction (Verified 03/03/19 06:35) Nausea NSAIDS (Non-Steroidal Anti-Inflamma Adverse Reaction (Verified 03/03/19 06:35) kidney function oxycodone HCl [From Percocet] Adverse Reaction (Verified 03/03/19 06:35) HALLUCINATIONS Home Medications: Ambulatory Orders Medication Instructions Recorded Aspirin [Aspirin, Baby] 81 mg PO DAILY@0800 01/26/16 Calcium Acetate [Phoslo Gel Cap] 1,334 mg PO TIDCM 01/26/16 Ergocalciferol [Vitamin D] 50,000 unit PO MO 01/26/16 Insulin Aspart [Novolog Flexpen] 10 units SC TIDCM 01/26/16 Insulin Glargine,Hum.rec.anlog 5 unit SQ QHS 01/09/17 [Lantus] proMETHazine tablet [Phenergan 25 mg PO Q6H PRN PRN #10 tab 03/06/17 tablet] Sodium Bicarbonate 650 mg PO 4X/DAY 03/29/17 Atorvastatin Calcium [Lipitor] 10 mg PO QHS 05/26/18 Carvedilol [Coreg] 25 mg PO BID 05/26/18 Loperamide HCl [Imodium A-D] 2 mg PO TID PRN 05/26/18 Pantoprazole Sodium [Protonix] 20 mg PO BID 05/26/18 Clopidogrel Bisulfate [Plavix] 75 mg PO DAILY 07/01/18 ALPRAZolam [Xanax] 0.5 mg PO MOWEFR PRN 08/09/18 B Complex W-C No.20/Folic Acid 1 mg PO MOWEFR 08/09/18 [Nephrocaps Softgel] Fluoxetine HCl 40 mg PO DAILY 08/09/18 Lidocaine/Prilocaine HCl [[place]mla 1 applicatio TOPICAL MOWEFR 10/01/18 Cream W/Tegaderm] Nystatin Powder [Mycostatin Powder] 1 applic TOPICAL BID PRN 10/14/18 hydrOXYzine tablet [Atarax tablet] 10 mg PO MOWEFR 11/06/18 Sodium Chloride 0.65% [[place] Nasal 2 spray NASAL TID PRN PRN 12/14/18 [place]] spray.btl Isosorbide Mononitrate [Imdur] 60 mg PO DAILY #30 tab 01/01/19 Lisinopril [Zestril] 10 mg PO DAILY #30 tab 01/01/19 Acetaminophen [Tylenol Tablet] 650 mg PO Q6H PRN PRN tab 01/29/19 Nitroglycerin (INPATIENT USE) 0.4 mg SUBLINGUAL Q5M PRN #10 01/29/19 [Nitrostat] tab.subl hydrALAZINE [Apresoline] 25 mg PO BID #60 tab 01/29/19 amlodipine 2.5 mg tablet 2.5 mg PO DAILY 02/28/19 Surgical History: Surgical History (Last Reviewed 02/20/19 @ 20:33 by Pricila Olson) Stented coronary artery (Chronic) Onset Date: 01/28/19 Z95.5 FFR of LAD 0.82; VIKY of mid LAD with 2.5 X 24 mm Promus Synergy, OM <50% stenosis per Dr. Magdaleno @ [facility];Occluded mid LAD stent with L to R collaterals. Double vessel CAD of the LCX and OM#1 Segmented LV systolic dysfunction- Severe LVEF: by LV gram 25 % Elevated Left Ventricular End Diastolic Pressure Successful PCI with PTCA to the proximal OM#1 with a 1.5 and 2.0 mm balloon; unable to advance new deflated balloon beyond mid OM due to calcification. No dissection, no stents placed and pt had no symptoms . Successful PTCA/VIKY to mid LCX with 2.25 x 12 Promus Synergy, post dilated with a 2.25 x 8 NC Balloon; 75%-->0%, no dissection. S/P repair of PDA (patent ductus arteriosus) (Chronic) Z98.890, Z87.74 At young age Surgical History: angioplasty, appendectomy, hysterectomy, - Psychiatric History: Anxiety, Depression [employer] History: No pertinent [employer] history Smoking Status: Former smoker - *Family History Maternal Family History: Family History (This Medical Record has been edited. Action required.) Father Diabetes Mother CVA (cerebral vascular accident) Hypertension Diabetes Cancer History Items: Cancer, COPD, Diabetes, Hypertension, Renal Disease, Stroke Paternal Family History: Family History (This Medical Record has been edited. Action required.) Father Diabetes Mother CVA (cerebral vascular accident) Hypertension Diabetes Cancer History Items: Diabetes Sibling Family History: Family History (This Medical Record has been edited. Action required.) Father Diabetes Mother CVA (cerebral vascular accident) Hypertension Diabetes Cancer History Items: Cancer, Diabetes Review of Systems Constitutional: Reports: Malaise. Denies: Chills, Fever, Weight Change HEENT: Denies: Head Aches, Sinus Congestion, Sinus Drainage Cardiovascular: Reports: Edema, Orthopnea. Denies: Chest Pain, Palpitations Respiratory: Denies: Cough, Shortness of breath at rest, Sputum production Gastrointestinal: Reports: Abdominal Pain, Hematochezia. Denies: Nausea, Vomiting Genitourinary: Denies: Dysuria Musculoskeletal: Denies: Joint Pain, Joint Tenderness Skin: Denies: Rash, Wounds Neurological: Denies: Numbness, Tingling, Focal weakness Psychiatric: Denies: Anxiety, Depression, Homicidal Ideations, Suicidal Ideations Hematologic/ Lymphatic: Denies: Easy Bruising, Easy Bleeding - Physical Exam General: Alert, Oriented x3, Cooperative HEENT: Atraumatic, PERRLA, EOMI, Normocephalic Neck: Supple, No JVD, Negative Carotid Bruits Lungs: Clear to auscultation, Normal air movement Cardiovascular: Regular rate, No murmurs Abdomen: Bowel Sounds Present, Soft, Non Tender, - - stoma bag with watery nonbloody liquid Extremities: No edema, Capillary Refill Less than 3 Seconds Skin: No rashes, No breakdown Musculoskeletal: No Tenderness to Palpation of Joints or Extremities Neurological: Cranial nerves II-XII grossly intact Psych/Mental Status: Normal Affect, Appropriate Vital Signs Temp Pulse Resp BP Pulse Ox 97.8 F 88 18 122/71 H 96 03/03/19 09:32 03/03/19 09:32 03/03/19 09:32 03/03/19 09:32 03/03/19 09:32 Oxygen Flow Rate (L/min) 3 Oxygen Delivery Method Nasal Cannula Weight: 86.183 kg Body Mass Index (BMI) 30.7 Finger Stick Blood Glucose 118 Microbiology Past 72 Hours 03/03/19 06:50 Stool Occult Blood (SCARLET) - Final Stool Occult Blood Positive Laboratory Tests Past 24 Hrs 03/03/19 03/03/19 06:50 06:50 WBC 5.9 RBC 2.58 L Hgb 8.7 L Hct 28.4 L MCV 110.1 H MCH 33.7 H MCHC 30.6 L RDW Std Deviation 67.1 H RDW Coeff of Scott 16.7 H Plt Count 110 L MPV 10.0 Immature Gran % (Auto) 0.300 Neut % (Auto) 73.8 H Lymph % (Auto) 14.0 L [place] % (Auto) 4.9 Eos % (Auto) 6.3 H Baso % (Auto) 0.7 Absolute Neuts (auto) 4.4 Absolute Lymphs (auto) 0.83 Nucleated RBC % 0 Hypochromasia 1+ Anisocytosis 1+ Sodium 138 Potassium 5.0 Chloride 100 Carbon Dioxide 31.0 Anion Gap 7 BUN 45 H Creatinine 6.74 H Estim Creat Clear Calc 9.87 Est GFR (MDRD) Af Amer 9 L Est GFR (MDRD) Non-Af 7 L BUN/Creatinine Ratio 6.7 L Glucose 131 H Calcium 9.4 Total Bilirubin 0.60 AST 17 ALT 17 Alkaline Phosphatase 127 H Total Protein 7.4 Albumin 3.0 L Globulin 4.4 H Albumin/Globulin Ratio 0.7 L Lipase 219 Assessment/Plan All Active Problems (Last Reviewed 02/20/19 @ 20:33 by Pricila Olson) Peripheral arterial disease (Acute) Acute on chronic systolic (congestive) heart failure (Acute) Metabolic alkalosis (Acute) Chest pain (Resolved) Hypotension (Resolved) blood per stoma bag, epigastric abdominal pain. Multiple medical comorbidities, I plan to perform upper and lower endoscopy. The patient stands the risks, benefits, complications and possible alternatives procedure and consent the planned procedure. We will give half dose of GoLYTELY today given watery output from her stoma. We'll plan for monitored anesthetic care for sedation tomorrow. Clear liquids today and then nothing by mouth for procedure.
[2019-03-03 11:57] LABS: Bedside Glucose 148 mg/dL (70-110)
--- NOTE | 2019-03-03 13:11 | HP.PCM_ITS ---
<Gael Vega - Last Filed: 03/03/19 13:21> Problem List (1) GI bleed Status: Acute (2) Osteomyelitis Status: Acute (3) C. difficile colitis Status: Suspected (4) Peripheral arterial disease Status: Chronic (5) Acute on chronic systolic (congestive) heart failure Status: Chronic (6) Ischemic cardiomyopathy Status: Chronic Comment: EF in December 2018 on a stress test was 29% with extensive wall motion abnormalities (7) COPD (chronic obstructive pulmonary disease) Status: Chronic (8) CAD (coronary artery disease) Status: Chronic (9) ESRD (end stage renal disease) on dialysis Status: Chronic (10) Decubitus ulcer, stage III Status: Chronic (11) GABRIEL (obstructive sleep apnea) Status: Chronic (12) Depression Status: Chronic (13) Anxiety Status: Chronic (14) HTN (hypertension) Status: Chronic (15) S/P repair of PDA (patent ductus arteriosus) Status: Chronic Comment: At young age (16) Hyperlipidemia Status: Chronic (17) Obesity (BMI 30.0-34.9) Status: Chronic (18) Gastroparesis Status: Chronic History of Present Illness Date of Admission: 03/03/19 Chief Complaint: abdominal pain The patient is a 43 year old F with complex medical hx including osteomyelitis s/p debridement by Dr. Munroe, and colostomy by Dr. Zhang due to the wound, hx Cdiff colitis, hx CAD with recent stent placement per Dr. Magdaleno, hx recent admission to [facility] 2 weeks prior with cellulitis treated with Vanco and subsequently DCd on Clindamycin, also with hx systolic CHF, ischemic CM, ESRD on dialysis per Dr. Martinez, Dmt2, obesity, and COPD, and smoking, who presents to the ER today with abdominal pain. This is described as 8/10 diffuse cramping, and aching. She has associated nausea and vomiting, and has had increased liquid output from her colostomy, with some blood. This began yesterday. She was brought to the ER and CT abdomen revealed no abdominal abnormality however it did show the presence of osteomyelitis in her coccyx and associated coccyx ulcer. She was given IV vanco. She is without fever or leukocytosis. She feels no increased pain at her coccyx, although she admits its not healing well due to sitting for long durations at dialysis. She reports her right 4th digit has turned black at the tip. She also reports the infection in her LLE is improving. Hgb is 8.[address] Zhang is planning for a an upper and lower endoscopy. She last had a colon/EGD about two years prior at which point she reports only polyps were found. [] Past Medical History Past Medical History (Chronic Problems): Chronic Problems (Last Reviewed 02/20/19 @ 20:33 by Pricila Olson) Peripheral arterial disease (Chronic) Acute on chronic systolic (congestive) heart failure (Chronic) Ischemic cardiomyopathy (Chronic) EF in December 2018 on a stress test was 29% with extensive wall motion abnormalities COPD (chronic obstructive pulmonary disease) (Chronic) Elevated troponin I level (Chronic) Anemia due to chronic kidney disease (Chronic) CAD (coronary artery disease) (Chronic) Stented coronary artery (Chronic 01/28/19) FFR of LAD 0.82; VIKY of mid LAD with 2.5 X 24 mm Promus Synergy, OM <50% stenosis per Dr. Magdaleno @ [facility];Occluded mid LAD stent with L to R collaterals. Double vessel CAD of the LCX and OM#1 Segmented LV systolic dysfunction- Severe LVEF: by LV gram 25 % Elevated Left Ventricular End Diastolic Pressure Successful PCI with PTCA to the proximal OM#1 with a 1.5 and 2.0 mm balloon; unable to advance new deflated balloon beyond mid OM due to calcification. No dissection, no stents placed and pt had no symptoms . Successful PTCA/VIKY to mid LCX with 2.25 x 12 Promus Synergy, post dilated with a 2.25 x 8 NC Balloon; 75%-->0%, no dissection. ESRD (end stage renal disease) on dialysis (Chronic) Decubitus ulcer, stage III (Chronic) GABRIEL (obstructive sleep apnea) (Chronic) Depression (Chronic) Anxiety (Chronic) HTN (hypertension) (Chronic) S/P repair of PDA (patent ductus arteriosus) (Chronic) At young age Hyperlipidemia (Chronic) Obesity (BMI 30.0-34.9) (Chronic) Gastroparesis (Chronic) Medical History: Medical History (Last Reviewed 02/20/19 @ 20:33 by Pricila Olson) ESRD (end stage renal disease) on dialysis (Chronic) N18.6, Z99.2 Decubitus ulcer, stage III (Chronic) L89.93 GABRIEL (obstructive sleep apnea) (Chronic) G47.33 HTN (hypertension) (Chronic) I10 Hyperlipidemia (Chronic) E78.5 Obesity (BMI 30.0-34.9) (Chronic) E66.9 Gastroparesis (Chronic) K31.84 Allergies latex Allergy (Verified 03/03/19 06:35) Rash prochlorperazine [From Compazine] Allergy (Verified 03/03/19 06:35) Unknown levofloxacin [From Levaquin] Adverse Reaction (Verified 03/03/19 06:35) PT CAN'T REMEMBER PT CAN'T REMEMBER metoclopramide HCl [From Reglan] Adverse Reaction (Verified 03/03/19 06:35) Nausea NSAIDS (Non-Steroidal Anti-Inflamma Adverse Reaction (Verified 03/03/19 06:35) kidney function oxycodone HCl [From Percocet] Adverse Reaction (Verified 03/03/19 06:35) HALLUCINATIONS Home Medications: Ambulatory Orders Medication Instructions Recorded Aspirin [Aspirin, Baby] 81 mg PO DAILY@0800 01/26/16 Calcium Acetate [Phoslo Gel Cap] 1,334 mg PO TIDCM 01/26/16 Ergocalciferol [Vitamin D] 50,000 unit PO MO 01/26/16 Insulin Aspart [Novolog Flexpen] 10 units SC TIDCM 01/26/16 Insulin Glargine,Hum.rec.anlog 5 unit SQ QHS 01/09/17 [Lantus] proMETHazine tablet [Phenergan 25 mg PO Q6H PRN PRN #10 tab 03/06/17 tablet] Sodium Bicarbonate 650 mg PO 4X/DAY 03/29/17 Atorvastatin Calcium [Lipitor] 10 mg PO QHS 05/26/18 Carvedilol [Coreg] 25 mg PO BID 05/26/18 Loperamide HCl [Imodium A-D] 2 mg PO TID PRN 05/26/18 Pantoprazole Sodium [Protonix] 20 mg PO BID 05/26/18 Clopidogrel Bisulfate [Plavix] 75 mg PO DAILY 07/01/18 ALPRAZolam [Xanax] 0.5 mg PO MOWEFR PRN 08/09/18 B Complex W-C No.20/Folic Acid 1 mg PO MOWEFR 08/09/18 [Nephrocaps Softgel] Fluoxetine HCl 40 mg PO DAILY 08/09/18 Lidocaine/Prilocaine HCl [[place]mla 1 applicatio TOPICAL MOWEFR 10/01/18 Cream W/Tegaderm] Nystatin Powder [Mycostatin Powder] 1 applic TOPICAL BID PRN 10/14/18 hydrOXYzine tablet [Atarax tablet] 10 mg PO MOWEFR 11/06/18 Sodium Chloride 0.65% [[place] Nasal 2 spray NASAL TID PRN PRN 12/14/18 [place]] spray.btl Isosorbide Mononitrate [Imdur] 60 mg PO DAILY #30 tab 01/01/19 Lisinopril [Zestril] 10 mg PO DAILY #30 tab 01/01/19 Acetaminophen [Tylenol Tablet] 650 mg PO Q6H PRN PRN tab 01/29/19 Nitroglycerin (INPATIENT USE) 0.4 mg SUBLINGUAL Q5M PRN #10 01/29/19 [Nitrostat] tab.subl hydrALAZINE [Apresoline] 25 mg PO BID #60 tab 01/29/19 amlodipine 2.5 mg tablet 2.5 mg PO DAILY 02/28/19 Surgical History: Surgical History (Last Reviewed 02/20/19 @ 20:33 by Pricila Olson) Stented coronary artery (Chronic) Onset Date: 01/28/19 Z95.5 FFR of LAD 0.82; VIKY of mid LAD with 2.5 X 24 mm Promus Synergy, OM <50% stenosis per Dr. Magdaleno @ [facility];Occluded mid LAD stent with L to R collaterals. Double vessel CAD of the LCX and OM#1 Segmented LV systolic dysfunction- Severe LVEF: by LV gram 25 % Elevated Left Ventricular End Diastolic Pressure Successful PCI with PTCA to the proximal OM#1 with a 1.5 and 2.0 mm balloon; unable to advance new deflated balloon beyond mid OM due to calcification. No dissection, no stents placed and pt had no symptoms . Successful PTCA/VIKY to mid LCX with 2.25 x 12 Promus Synergy, post dilated with a 2.25 x 8 NC Balloon; 75%-->0%, no dissection. 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 Action required.) Father Diabetes Mother CVA (cerebral vascular accident) Hypertension Diabetes Cancer History Items: Cancer, COPD, Diabetes, Hypertension, Renal Disease, Stroke Paternal Family History: Family History (This Medical Record has been edited. Action required.) Father Diabetes Mother CVA (cerebral vascular accident) Hypertension Diabetes Cancer History Items: Diabetes, Heart Disease Sibling Family History: Family History (This Medical Record has been edited. Action required.) Father Diabetes Mother CVA (cerebral vascular accident) Hypertension Diabetes Cancer History Items: Cancer, Diabetes Review of Systems Constitutional: Denies: Chills, Fever, Weight Change HEENT: Denies: Head Aches, Sinus Congestion, Sinus Drainage Cardiovascular: Denies: Chest Pain, Edema, Heaviness, Light Headedness, Palpitations Respiratory: Denies: Cough, Shortness of Breath, Shortness of breath at rest, Sputum production Gastrointestinal: Reports: Abdominal Pain, Diarrhea, Nausea, Vomiting Genitourinary: Denies: Dysuria, Frequency, Urgency Musculoskeletal: Denies: Joint Pain, Joint Tenderness Skin: Reports: Wounds. Denies: Rash Neurological: Denies: Numbness, Tingling, Focal weakness Psychiatric: Reports: Anxiety, Depression. Denies: Homicidal Ideations, Suicidal Ideations Hematologic/ Lymphatic: Denies: Easy Bruising, Easy Bleeding VTE Information - Inpt Only VTE Present on Admission: No VTE Mechan Device Prophylaxis: SCD's VTE Pharm Prophylaxis ordered?: No Patient Problems: Active and Suspected Problems (Last Reviewed 02/20/19 @ 20:33 by Pricila Olson) Osteomyelitis (Acute) GI bleed (Acute) C. difficile colitis (Suspected) - Physical Exam General: Alert, Oriented x3, Cooperative HEENT: Atraumatic, PERRLA, EOMI, Normocephalic Neck: Supple, No JVD, Negative Carotid Bruits Lungs: Clear to auscultation, Normal air movement Cardiovascular: Regular rate, No murmurs Abdomen: Bowel Sounds Present, Soft, Obese, Tender Extremities: No edema, Capillary Refill Less than 3 Seconds Skin: Ulcer/ Wound Musculoskeletal: No Tenderness to Palpation of Joints or Extremities, - - RUE 4th digit tip is black Neurological: Cranial nerves II-XII grossly intact Psych/Mental Status: Normal Affect, Appropriate, Alert and oriented to time, place, person, mood and affect Vital Signs Temp Pulse Resp BP Pulse Ox 97.8 F 88 18 122/71 H 96 03/03/19 09:32 03/03/19 09:32 03/03/19 09:32 03/03/19 09:32 03/03/19 09:32 Oxygen Flow Rate (L/min) 3 Oxygen Delivery Method Nasal Cannula Weight: 190 lb Body Mass Index (BMI) 30.7 Finger Stick Blood Glucose 118 Intake and Output for Last 24 Hours 03/01/19 03/02/19 03/03/19 23:59 23:59 23:59 Intake Total 600 / 600 Balance 600 / 600 Microbiology Past 72 Hours 03/03/19 06:50 Stool Occult Blood (SCARLET) - Final Stool Occult Blood Positive Laboratory Tests Past 24 Hrs 03/03/19 03/03/19 06:50 06:50 WBC 5.9 RBC 2.58 L Hgb 8.7 L Hct 28.4 L MCV 110.1 H MCH 33.7 H MCHC 30.6 L RDW Std Deviation 67.1 H RDW Coeff of Scott 16.7 H Plt Count 110 L MPV 10.0 Immature Gran % (Auto) 0.300 Neut % (Auto) 73.8 H Lymph % (Auto) 14.0 L [place] % (Auto) 4.9 Eos % (Auto) 6.3 H Baso % (Auto) 0.7 Absolute Neuts (auto) 4.4 Absolute Lymphs (auto) 0.83 Nucleated RBC % 0 Hypochromasia 1+ Anisocytosis 1+ Sodium 138 Potassium 5.0 Chloride 100 Carbon Dioxide 31.0 Anion Gap 7 BUN 45 H Creatinine 6.74 H Estim Creat Clear Calc 9.87 Est GFR (MDRD) Af Amer 9 L Est GFR (MDRD) Non-Af 7 L BUN/Creatinine Ratio 6.7 L Glucose 131 H Calcium 9.4 Total Bilirubin 0.60 AST 17 ALT 17 Alkaline Phosphatase 127 H Total Protein 7.4 Albumin 3.0 L Globulin 4.4 H Albumin/Globulin Ratio 0.7 L Lipase 219 POC Glucose 03/03/19 11:51 POC Glucose 148 H Assessment/Plan All Active Problems (Last Reviewed 02/20/19 @ 20:33 by Pricila Olson) Osteomyelitis (Acute) GI bleed (Acute) Metabolic alkalosis (Acute) Chest pain (Resolved) Hypotension (Resolved) 1. Acute abdominal pain - suspect C diff. Increased N/V/ostomy output, cramping abdominal pain, has been on Clinda recently and in the hospital. Hx Cdiff. Stool sent. 2. Acute blood loss anemia 2/2 GI bleed - Dr. Zhang following. Unfortunately need to continue asa/plavix with recent stent.. T/S. Repeat H/H. Possible Upper/Lower endoscopy. Last about 2 years prior only polyps reported. 3. Coccyx Osteomyelitis - noted on CT. She believes her osteo is in remission. No fever/leukocytosis. IV Vanco given. C/S infectious disease for further treatment plan. 4. Coccyx decubitus ulcer leading to #3 - consult wound care. 5. Colostomy for #3/4 - wound/ostomy care c/s. Ostomy performed by Dr. Dill who is following. 6. CAD - recent stent placed. Hx stents/ND. Follows Dr. Magdaleno. Currently no cardiac complaints. This complicates her GI bleed as she needs to be on asa/plavix given her recent stent. 7. Hx systolic CHF/Ischemic CM - no evidence of volume overload at this time. 8. ESRD - care per Dr. Martinez. Schedule is MWF 9. COPD - smoking until 2 weeks ago. No SOB/wheezing at this time. prn aerosols if needed. 10. Hx PAD and Reynauds dz - complicating her wound healing process, compounded by nicotine abuse. RUE 4th digit tip is black 11. DMt2 with obesity - SSI, lantus, TID insulin. SSI only if NPO. 12. Anx/Depression - home meds. 13. Recent LLE cellulitis - was on vanco --> clinda from [facility] 2 weeks ago. Appears resolved. DVT ppx: SCDs DC planning: lives at home, plans to return home. This patient was seen by Gael Vega PA-C under the supervision of Dr. Kauffman. <Sergio Kauffman - Last Filed: 03/03/19 16:26> History of Present Illness The patient is a 43 year old F [] Past Medical History Medical History: Medical History (Last Reviewed 02/20/19 @ 20:33 by Pricila Olson) ESRD (end stage renal disease) on dialysis (Chronic) N18.6, Z99.2 Decubitus ulcer, stage III (Chronic) L89.93 GABRIEL (obstructive sleep apnea) (Chronic) G47.33 HTN (hypertension) (Chronic) I10 Hyperlipidemia (Chronic) E78.5 Obesity (BMI 30.0-34.9) (Chronic) E66.9 Gastroparesis (Chronic) K31.84 Allergies latex Allergy (Verified 03/03/19 06:35) Rash prochlorperazine [From Compazine] Allergy (Verified 03/03/19 06:35) Unknown levofloxacin [From Levaquin] Adverse Reaction (Verified 03/03/19 06:35) PT CAN'T REMEMBER PT CAN'T REMEMBER metoclopramide HCl [From Reglan] Adverse Reaction (Verified 03/03/19 06:35) Nausea NSAIDS (Non-Steroidal Anti-Inflamma Adverse Reaction (Verified 03/03/19 06:35) kidney function oxycodone HCl [From Percocet] Adverse Reaction (Verified 03/03/19 06:35) HALLUCINATIONS Surgical History: Surgical History (Last Reviewed 02/20/19 @ 20:33 by Pricila Olson) Stented coronary artery (Chronic) Onset Date: 01/28/19 Z95.5 FFR of LAD 0.82; VIKY of mid LAD with 2.5 X 24 mm Promus Synergy, OM <50% stenosis per Dr. Magdaleno @ [facility];Occluded mid LAD stent with L to R collaterals. Double vessel CAD of the LCX and OM#1 Segmented LV systolic dysfunction- Severe LVEF: by LV gram 25 % Elevated Left Ventricular End Diastolic Pressure Successful PCI with PTCA to the proximal OM#1 with a 1.5 and 2.0 mm balloon; unable to advance new deflated balloon beyond mid OM due to calcification. No dissection, no stents placed and pt had no symptoms . Successful PTCA/VIKY to mid LCX with 2.25 x 12 Promus Synergy, post dilated with a 2.25 x 8 NC Balloon; 75%-->0%, no dissection. S/P repair of PDA (patent ductus arteriosus) (Chronic) Z98.890, Z87.74 At young age - *Family History Maternal Family History: Family History (This Medical Record has been edited. Action required.) Father Diabetes Mother CVA (cerebral vascular accident) Hypertension Diabetes Cancer Paternal Family History: Family History (This Medical Record has been edited. Action required.) Father Diabetes Mother CVA (cerebral vascular accident) Hypertension Diabetes Cancer Sibling Family History: Family History (This Medical Record has been edited. Action required.) Father Diabetes Mother CVA (cerebral vascular accident) Hypertension Diabetes Cancer - Physical Exam Vital Signs Temp Pulse Resp BP Pulse Ox 98.9 F 87 18 125/56 H 97 03/03/19 15:54 03/03/19 15:54 03/03/19 15:54 03/03/19 15:54 03/03/19 15:54 Oxygen Flow Rate (L/min) 1 Oxygen Delivery Method Nasal Cannula Weight: 190 lb Body Mass Index (BMI) 30.7 Finger Stick Blood Glucose 118 Intake and Output for Last 24 Hours 03/01/19 03/02/19 03/03/19 23:59 23:59 23:59 Intake Total 600 / 600 Balance 600 / 600 Microbiology Past 72 Hours 03/03/19 06:50 Stool Occult Blood (SCARLET) - Final Stool Occult Blood Positive Laboratory Tests Past 24 Hrs 03/03/19 03/03/19 06:50 06:50 WBC 5.9 RBC 2.58 L Hgb 8.7 L Hct 28.4 L MCV 110.1 H MCH 33.7 H MCHC 30.6 L RDW Std Deviation 67.1 H RDW Coeff of Scott 16.7 H Plt Count 110 L MPV 10.0 Immature Gran % (Auto) 0.300 Neut % (Auto) 73.8 H Lymph % (Auto) 14.0 L [place] % (Auto) 4.9 Eos % (Auto) 6.3 H Baso % (Auto) 0.7 Absolute Neuts (auto) 4.4 Absolute Lymphs (auto) 0.83 Nucleated RBC % 0 Hypochromasia 1+ Anisocytosis 1+ Sodium 138 Potassium 5.0 Chloride 100 Carbon Dioxide 31.0 Anion Gap 7 BUN 45 H Creatinine 6.74 H Estim Creat Clear Calc 9.87 Est GFR (MDRD) Af Amer 9 L Est GFR (MDRD) Non-Af 7 L BUN/Creatinine Ratio 6.7 L Glucose 131 H Calcium 9.4 Total Bilirubin 0.60 AST 17 ALT 17 Alkaline Phosphatase 127 H Total Protein 7.4 Albumin 3.0 L Globulin 4.4 H Albumin/Globulin Ratio 0.7 L Lipase 219 POC Glucose 03/03/19 11:51 POC Glucose 148 H Code Visit Addendum: Dr. Kauffman I personally examined the patient and reviewed the chart. I agree with the above. 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 In the ER she had a CT scan which was remarkable for an area of bony destruction in the coccyx consistent with osteomyelitis despite her being afebrile without a leukocytosis. She was started on vancomycin and Zosyn and infectious disease was consulted. Also they did a Hemoccult in her ostomy and that came back positive so Dr. Dill was notified who had scoped her in the past and he is planning on scoping her again in case there is a lymphocytic or scopic colitis. With her end-stage renal disease she is on dialysis Monday so nephrology was consulted to assist with that. For her diarrhea we will plan on obtaining a C. difficile given her recent antibiotic treatment. She also states that she has a history of ray nods syndrome and she has loss of sensation in a couple of digits in both hands. She states that a couple days ago she also started noticing that the fourth finger on her right hand started becoming necrotic at the tip, without any surrounding cellulitis this is not likely infected however she will need evaluation by wound care and she may even need an amputation or at least a vascular study to determine blood flow deficiencies and possible intervention from that standpoint. Inpatient E&M: [id number] Init Hosp L3
[2019-03-03] MEDS: Sodium Bicarbonate 650 MG Tablet PO ×3 (13:15→22:50)
[2019-03-03] MEDS: 0.9% NaCl Peripheral Flush Adult/Peds IV ×3 (13:16→22:56)
--- NOTE | 2019-03-03 14:07 | PCM.CONS.GEN ---
Reason for Consult History of Present Illness: This is a 43-year-old female with a past medical history of end-stage renal disease on hemodialysis presented with a chief complaint of generalized abdominal pain diarrhea via colostomy and also black stools. The patient had a diverting colostomy in order to help with healing of the back wound and she also had a recent stent placement at [facility] with cellulitis treated with Vanco and is discharged on clindamycin. Patient also had nausea vomiting and had noticed some red blood in the stool. Her last dialysis was on Monday and her chicken dresser is Dr. Martinez. She uses a left forearm AV fistula and she denies fever chills discharge from the AV fistula no chest pain shortness of breath. She has no other complaints. Past Medical History Past Medical History (Chronic Problems): Chronic Problems (Last Reviewed 02/20/19 @ 20:33 by Pricila Olson) Peripheral arterial disease (Chronic) Acute on chronic systolic (congestive) heart failure (Chronic) Ischemic cardiomyopathy (Chronic) EF in December 2018 on a stress test was 29% with extensive wall motion abnormalities COPD (chronic obstructive pulmonary disease) (Chronic) Elevated troponin I level (Chronic) Anemia due to chronic kidney disease (Chronic) CAD (coronary artery disease) (Chronic) Stented coronary artery (Chronic 01/28/19) FFR of LAD 0.82; VIKY of mid LAD with 2.5 X 24 mm Promus Synergy, OM <50% stenosis per Dr. Magdaleno @ [facility];Occluded mid LAD stent with L to R collaterals. Double vessel CAD of the LCX and OM#1 Segmented LV systolic dysfunction- Severe LVEF: by LV gram 25 % Elevated Left Ventricular End Diastolic Pressure Successful PCI with PTCA to the proximal OM#1 with a 1.5 and 2.0 mm balloon; unable to advance new deflated balloon beyond mid OM due to calcification. No dissection, no stents placed and pt had no symptoms . Successful PTCA/VIKY to mid LCX with 2.25 x 12 Promus Synergy, post dilated with a 2.25 x 8 NC Balloon; 75%-->0%, no dissection. ESRD (end stage renal disease) on dialysis (Chronic) Decubitus ulcer, stage III (Chronic) GABRIEL (obstructive sleep apnea) (Chronic) Depression (Chronic) Anxiety (Chronic) HTN (hypertension) (Chronic) S/P repair of PDA (patent ductus arteriosus) (Chronic) At young age Hyperlipidemia (Chronic) Obesity (BMI 30.0-34.9) (Chronic) Gastroparesis (Chronic) Medical History: Medical History (Last Reviewed 02/20/19 @ 20:33 by Pricila Olson) ESRD (end stage renal disease) on dialysis (Chronic) N18.6, Z99.2 Decubitus ulcer, stage III (Chronic) L89.93 GABRIEL (obstructive sleep apnea) (Chronic) G47.33 HTN (hypertension) (Chronic) I10 Hyperlipidemia (Chronic) E78.5 Obesity (BMI 30.0-34.9) (Chronic) E66.9 Gastroparesis (Chronic) K31.84 Allergies latex Allergy (Verified 03/03/19 06:35) Rash prochlorperazine [From Compazine] Allergy (Verified 03/03/19 06:35) Unknown levofloxacin [From Levaquin] Adverse Reaction (Verified 03/03/19 06:35) PT CAN'T REMEMBER PT CAN'T REMEMBER metoclopramide HCl [From Reglan] Adverse Reaction (Verified 03/03/19 06:35) Nausea NSAIDS (Non-Steroidal Anti-Inflamma Adverse Reaction (Verified 03/03/19 06:35) kidney function oxycodone HCl [From Percocet] Adverse Reaction (Verified 03/03/19 06:35) HALLUCINATIONS Home Medications: Ambulatory Orders Medication Instructions Recorded Aspirin [Aspirin, Baby] 81 mg PO DAILY@0800 01/26/16 Calcium Acetate [Phoslo Gel Cap] 1,334 mg PO TIDCM 01/26/16 Ergocalciferol [Vitamin D] 50,000 unit PO MO 01/26/16 Insulin Aspart [Novolog Flexpen] 10 units SC TIDCM 01/26/16 Insulin Glargine,Hum.rec.anlog 5 unit SQ QHS 01/09/17 [Lantus] proMETHazine tablet [Phenergan 25 mg PO Q6H PRN PRN #10 tab 03/06/17 tablet] Sodium Bicarbonate 650 mg PO 4X/DAY 03/29/17 Atorvastatin Calcium [Lipitor] 10 mg PO QHS 05/26/18 Carvedilol [Coreg] 25 mg PO BID 05/26/18 Loperamide HCl [Imodium A-D] 2 mg PO TID PRN 05/26/18 Pantoprazole Sodium [Protonix] 20 mg PO BID 05/26/18 Clopidogrel Bisulfate [Plavix] 75 mg PO DAILY 07/01/18 ALPRAZolam [Xanax] 0.5 mg PO MOWE PRN 08/09/18 B Complex W-C No.20/Folic Acid 1 mg PO MOWEFR 08/09/18 [Nephrocaps Softgel] Fluoxetine HCl 40 mg PO DAILY 08/09/18 Lidocaine/Prilocaine HCl [[place]ml[place] 1 applicatio TOPICAL MOWEFR 10/01/18 Cream W/Tegaderm] Nystatin Powder [Mycostatin Powder] 1 applic TOPICAL BID PRN 10/14/18 hydrOXYzine tablet [Atarax tablet] 10 mg PO WEFR 11/06/18 Sodium Chloride 0.65% [Schley Nasal 2 spray NASAL TID PRN PRN 12/14/18 [place]] spray.btl Isosorbide Mononitrate [Imdur] 60 mg PO DAILY #30 tab 01/01/19 Lisinopril [Zestril] 10 mg PO DAILY #30 tab 01/01/19 Acetaminophen [Tylenol Tablet] 650 mg PO Q6H PRN PRN tab 01/29/19 Nitroglycerin (INPATIENT USE) 0.4 mg SUBLINGUAL Q5M PRN #10 01/29/19 [Nitrostat] tab.subl hydrALAZINE [Apresoline] 25 mg PO BID #60 tab 01/29/19 amlodipine 2.5 mg tablet 2.5 mg PO DAILY 02/28/19 Surgical History: Surgical History (Last Reviewed 02/20/19 @ 20:33 by Pricila Olson) Stented coronary artery (Chronic) Onset Date: 01/28/19 Z95.5 FFR of LAD 0.82; VIKY of mid LAD with 2.5 X 24 mm Promus Synergy, OM <50% stenosis per Dr. Magdaleno @ [facility];Occluded mid LAD stent with L to R collaterals. Double vessel CAD of the LCX and OM#1 Segmented LV systolic dysfunction- Severe LVEF: by LV gram 25 % Elevated Left Ventricular End Diastolic Pressure Successful PCI with PTCA to the proximal OM#1 with a 1.5 and 2.0 mm balloon; unable to advance new deflated balloon beyond mid OM due to calcification. No dissection, no stents placed and pt had no symptoms . Successful PTCA/VIKY to mid LCX with 2.25 x 12 Promus Synergy, post dilated with a 2.25 x 8 NC Balloon; 75%-->0%, no dissection. S/P repair of PDA (patent ductus arteriosus) (Chronic) Z98.890, Z87.74 At young age Surgical History: angioplasty, appendectomy, hysterectomy, - Psychiatric History: Anxiety, Depression REGIONAL COORDINATOR History: No pertinent REGIONAL COORDINATOR history Lives: With Family Smoking Status: Former smoker - quit 2 weeks ago Tobacco Use: Non-smoker Alcohol: None Drugs: None - *Family History Maternal Family History: Family History (This Medical Record has been edited. Action required.) Father Diabetes Mother CVA (cerebral vascular accident) Hypertension Diabetes Cancer History Items: Cancer, COPD, Diabetes, Hypertension, Renal Disease, Stroke Paternal Family History: Family History (This Medical Record has been edited. Action required.) Father Diabetes Mother CVA (cerebral vascular accident) Hypertension Diabetes Cancer History Items: Diabetes, Heart Disease Sibling Family History: Family History (This Medical Record has been edited. Action required.) Father Diabetes Mother CVA (cerebral vascular accident) Hypertension Diabetes Cancer History Items: Cancer, Diabetes Review of Systems Gastrointestinal: Reports: Abdominal Pain, Hematochezia Musculoskeletal: Reports: - - back pain Patient Problems: Active and Suspected Problems (Last Reviewed 02/20/19 @ 20:33 by Pricila Olson) Osteomyelitis (Acute) GI bleed (Acute) C. difficile colitis (Suspected) - Physical Exam General: Alert, Oriented x3 HEENT: Atraumatic, PERRLA Oral: No Gingival or Mucosal Lesions/ Ulcerations Neck: Supple, Trachea Midline Lungs: Clear to auscultation, Normal air movement, No rhonchi Cardiovascular: Regular rate, Regular Rhythm, Normal S1, Normal S2 Abdomen: Bowel Sounds Present, Obese, Tender, - Extremities: No clubbing, No cyanosis, No edema, - - Left forearm AV fistula good thrill and bruit Skin: No rashes Vital Signs Temp Pulse Resp BP Pulse Ox 97.8 F 88 18 122/71 H 96 03/03/19 09:32 03/03/19 09:32 03/03/19 09:32 03/03/19 09:32 03/03/19 09:32 Oxygen Flow Rate (L/min) 3 Oxygen Delivery Method Nasal Cannula Weight: 86.183 kg Body Mass Index (BMI) 30.7 Finger Stick Blood Glucose 118 Intake and Output for Last 24 Hours 03/01/19 03/02/19 03/03/19 23:59 23:59 23:59 Intake Total 600 / 600 Balance 600 / 600 Microbiology Past 72 Hours 03/03/19 06:50 Stool Occult Blood (SCARLET) - Final Stool Occult Blood Positive Laboratory Tests Past 24 Hrs 03/03/19 03/03/19 06:50 06:50 WBC 5.9 RBC 2.58 L Hgb 8.7 L Hct 28.4 L MCV 110.1 H MCH 33.7 H MCHC 30.6 L RDW Std Deviation 67.1 H RDW Coeff of Scott 16.7 H Plt Count 110 L MPV 10.0 Immature Gran % (Auto) 0.300 Neut % (Auto) 73.8 H Lymph % (Auto) 14.0 L [place] % (Auto) 4.9 Eos % (Auto) 6.3 H Baso % (Auto) 0.7 Absolute Neuts (auto) 4.4 Absolute Lymphs (auto) 0.83 Nucleated RBC % 0 Hypochromasia 1+ Anisocytosis 1+ Sodium 138 Potassium 5.0 Chloride 100 Carbon Dioxide 31.0 Anion Gap 7 BUN 45 H Creatinine 6.74 H Estim Creat Clear Calc 9.87 Est GFR (MDRD) Af Amer 9 L Est GFR (MDRD) Non-Af 7 L BUN/Creatinine Ratio 6.7 L Glucose 131 H Calcium 9.4 Total Bilirubin 0.60 AST 17 ALT 17 Alkaline Phosphatase 127 H Total Protein 7.4 Albumin 3.0 L Globulin 4.4 H Albumin/Globulin Ratio 0.7 L Lipase 219 POC Glucose 03/03/19 11:51 POC Glucose 148 H Assessment/Plan All Active Problems (Last Reviewed 02/20/19 @ 20:33 by Pricila Olson) Osteomyelitis (Acute) GI bleed (Acute) Metabolic alkalosis (Acute) Chest pain (Resolved) Hypotension (Resolved) ESRD Anemia of chronic kidney disease also with GI bleed CKD MBD Hypertension GI bleed colostomy Continue Monday dialysis GI on board Continue binders monitor calcium and phosphorus Continue blood pressure meds currently is controlled If she has a prolonged hospital stay resume erythropoietin with dialysis Dialysis tomorrow with minimal UF considering her severe diarrhea Above assessment and plan discussed with the patient voiced understanding and agrees to proceed with the plan as outlined above.
[2019-03-03] MEDS: Electrolyte Solution/Peg's 4000 ML 2000 ML PO (15:44)
[2019-03-03 16:20] LABS: Bedside Glucose 153 mg/dL (70-110)
[2019-03-03] MEDS: Acetaminophen 325 MG Tablet 650 MG PO ×2 (16:51→22:50)
[2019-03-03] MEDS: proMETHazine 25 MG Tablet PO (16:52)
[2019-03-03] MEDS: Insulin Lispro 100 UNIT/ML INSULN.PEN SC (17:39)
[2019-03-03] MEDS: Insulin Lispro 100 UNIT/ML INSULN.PEN 10 UNIT SC (17:40)
[2019-03-03] MEDS: Calcium Acetate 667 MG Capsule 1334 MG PO (17:41)
--- NOTE | 2019-03-03 18:53 | PCM.RX.CS ---
Consult Pharmacy has been consulted to manage selected antiobiotic: Vancomycin Type of Consult: New start Suspected Infection: Osteomyelitis Prior Doses of Antibiotics Received/Current Regimen: Received 1250mg iv on 03.03.19 @0850 Labs: Sodium 138 mmol/L (136-145) 03/03/19 06:50 Potassium 5.0 mmol/L (3.5-5.1) 03/03/19 06:50 Chloride 100 mmol/L (98-107) 03/03/19 06:50 Carbon Dioxide 31.0 mmol/L (21.0-32.0) 03/03/19 06:50 7 (5-15) 03/03/19 06:50 BUN 45 mg/dL (7-18) H 03/03/19 06:50 6.74 mg/dL (0.55-1.02) H 03/03/19 06:50 Est GFR (MDRD) Af Amer 9 mL/min (>60) L 03/03/19 06:50 Est GFR (MDRD) Non-Af 7 mL/min (>60) L 03/03/19 06:50 6.7 RATIO (10-20) L 03/03/19 06:50 Glucose 131 mg/dL (74-106) H 03/03/19 06:50 Microbiology: Microbiology 03/03/19 06:50 Stool Stool Occult Blood (SCARLET) - Final Occult Blood Positive Weight used for dosin.2 kg Estimated Creatinine Clearance: ~10 ml/min Goal Trough: 15-20 mcg/mL Pharmacy Plan for Drug Dosing: Will get random level in AM 03.04.19 and dose further based on results. Pharmacy Service will continue to monitor and adjust dosing as required. Follow-Up Labs: Trough Vancomycin - random level 03.04.19 @0873
[2019-03-03 22:49] LABS: Color, Urine Yellow (Yellow); Glucose, Dipstick 50 mg/dl (Normal); Ketone-Dipstick Negative (Negative); Leukocyte Esterase-Dipstick 100 /ul (Negative); Mucous, Urine 0 SEEN /hpf (<or=2+); Nitrite-Dipstick Negative (Negative); Occult Blood-Urine 50 /ul (Negative); Protein-Dipstick 100 mg/dl (Negative); Urine Bilirubin Dipstick Negative (Negative); Urine Clarity Clear (Clear); Urine Urobilinogen Normal (Normal)
[2019-03-03] MEDS: Atorvastatin Calcium 10 MG Tablet PO (22:50)
[2019-03-03] MEDS: Carvedilol 25 MG Tablet PO (22:50)
[2019-03-03] MEDS: Pantoprazole Sodium 20 MG Tablet PO (22:50)
[2019-03-03 22:54] LABS: Bacteria RARE /hpf (None Seen); Red Blood Cells-Urine 0-5 SEEN /hpf (0-5); Squamous Epithelial Cells - UA 5-10 SEEN /hpf (5-10); White Blood Cells 5-10 SEEN /hpf (0-5)
[2019-03-03] MEDS: hydrALAZINE 25 MG Tablet PO (22:56)
[2019-03-03 23:11] LABS: Bedside Glucose 91 mg/dL (70-110)
[2019-03-04] VITALS (10 sets, daily range): BP systolic 96–124; BP diastolic 17–87; PULSE 67–82; RESP 16–18; TEMP 36.3–37; O2SAT 94–100; BMI 30.7
[2019-03-04] MEDS: MELATONIN 3 MG TABLET PO (00:48)
[2019-03-04 03:51] LABS: Bedside Glucose 92 mg/dL (70-110)
[2019-03-04 05:49] LABS: Absolute Lymphocyte Count 0.72 X10^3/uL (0.83-4.51); Absolute Neutrophil Count 3.9 X10^3/uL (2.0-7.7); Basophil# 0.03 X10^3/uL; Basophil% 0.6 % (0-1); Eosinophil# 0.32 X10^3/uL; Eosinophils% 6.1 % (0-5); Hematocrit 29.1 % (37-47); Hemoglobin 8.8 g/dL (12.0-15.0); Lymphocyte # 0.72 X10^3/ul (4.0); Lymphocyte % 13.8 % (19-41); Mean Corp Hgb Conc 30.2 g/dL (32-36); Mean Corpuscular Hgb 33.7 pg (27.0-32.0); Mean Corpuscular Volume 111.5 fL (81-99); Mean Platelet Vol. 9.7 fl (6.2-12.0); Monocyte# 0.18 X10^3/uL; Monocyte% 3.5 % (0-10); NRBC Flagged by Analyzer 0 % (0-5); Neutrophil # 3.93 X10^3/uL (2.7-7.7); Neutrophil % 75.4 % (47-70); POSITIVE MORPHOLOGY YES; Platelet Count 112 K/mm3 (150-450); RBC Distribution Width CV 16.9 % (11.6-14.6); RBC Distribution Width SD 68.3 fl (35.1-43.9); Red Blood Count 2.61 M/mm3 (4.2-5.4); White Blood Count 5.2 K/mm3 (4.4-11.0)
[2019-03-04 05:52] LABS: Differential Indicated SCAN CRITERIA MET
[2019-03-04 06:04] LABS: International Normalized Ratio 1.3; Prothrombin Time (Protime)PT. 15.6 SECONDS (11.7-14.9)
[2019-03-04 06:05] LABS: Partial Thromboplast Time 33.6 Seconds (24.1-36.2)
[2019-03-04 06:13] LABS: Anion Gap 13 (5-15); BUN 55 mg/dL (7-18); BUN/Creat Ratio 6.9 RATIO (10-20); Calcium,Total 9.5 mg/dL (8.5-10.1); Chloride 103 mmol/L (98-107); Creatinine, Serum 7.94 mg/dL (0.55-1.02); EST Glomerular Filtration Rate 6 mL/min (>60); Est Glom Filt Rate - Afr Amer 7 mL/min (>60); Estimated Creatinine Clearance 8.38 ml/min; Glucose 101 mg/dL (74-106); Potassium 5.2 mmol/L (3.5-5.1); Sodium Level 142 mmol/L (136-145)
--- NOTE | 2019-03-04 06:28 | NURSING ---
talked to Anila from [facility] and informed her that the pt was scheduled to have dialysis today, but she is having a proceure at 1130. Dialysis will need to be after the procedure. Eula stated that she would let the appropriate person know.
[2019-03-04 06:31] LABS: Differential Comment SCANNED; Macrocytosis 2+
[2019-03-04 06:39] LABS: AST(SGOT) 20 U/L (15-37); Alanine Aminotransfer ALT/SGPT 22 U/L (13-56); Alkaline Phosphatase 127 U/L (45-117); Bilirubin, Direct 0.22 mg/dL (0.00-0.30); Globulin 4.6 g/dL (2.2-4.2); Protein, Total 7.6 g/dL (6.4-8.2)
[2019-03-04 06:46] LABS: Bedside Glucose 77 mg/dL (70-110)
--- NOTE | 2019-03-04 08:23 | PN_ITS ---
Patient Problems: Active and Suspected Problems (Last Reviewed 02/20/19 @ 20:33 by Pricila Olson) Osteomyelitis (Acute) GI bleed (Acute) C. difficile colitis (Suspected) Subjective: Patient is a 43-year-old lady with multiple comorbidities admitted with abdominal pain as well as black from colostomy stoma. [facility] [place] [facility] with consultation placed to general surgeon Dr. Dill patient is scheduled to undergo endoscopic evaluation both upper and lower later on this morning. 03/04/2019: Patient seen complains of significant pain at the tip of her right ring finger which he has to have dry gangrene (patient has Raynaud's) Objective: GENERAL: cooperative HEENT: Atraumatic; EYES; Anicteric, Normal Conjunctiva NECK; supple, normal thyroid, n RESPIRATORY: Diminished to auscultation bilaterally, CARDIOVASCULAR: Regular S1 S2, GI: Colostomy with clear stool : No Renal angle tenderness; EXTREMITIES: Black discoloration involving the tip of the right ring finger MUSCULOSKELETAL: No Joint Tenderness; NEURO: Awake; no lateralizing signs. SKIN: As described above PSYCH; Normal affect Vitals/I&O's: Vital Signs Temp Pulse Resp BP Pulse Ox 97.4 F L 82 18 108/54 L 95 03/04/19 04:23 03/04/19 04:23 03/04/19 04:23 03/04/19 04:23 03/04/19 04:23 Oxygen Flow Rate (L/min) 2 Oxygen Delivery Method Nasal Cannula Weight: 86.183 kg Body Mass Index (BMI) 30.7 Finger Stick Blood Glucose 118 Intake and Output for Last 24 Hours 03/02/19 03/03/19 03/04/19 23:59 23:59 23:59 Intake Total 1750 / 1750 Output Total 1150 / 1150 200 / 200 Balance 600 / 600 -200 / -200 Microbiology Past 72 Hours 03/03/19 19:10 Stool C. difficile DNA Amplification - Final 03/03/19 19:10 Stool Stool Lactoferrin - Final 03/03/19 06:50 Stool Stool Occult Blood (SCARLET) - Final Occult Blood Positive Laboratory Results 03/03/19 11:51: POC Glucose 148 H 03/03/19 15:51: POC Glucose 153 H 03/03/19 22:45: Urine Color Yellow, Urine Clarity Clear, Urine pH 8.0, Ur Specific [place] 1.010, Urine Protein 100 H, Urine Glucose (UA) 50 H, Urine Ketones Negative, Urine Occult Blood 50 H, Urine Nitrite Negative, Urine Bilirubin Negative, Urine Urobilinogen Normal, Ur Leukocyte Esterase 100 H, Urine RBC 0-5 SEEN, Urine WBC 5-10 SEEN, Ur Squamous Epith Cells 5-10 SEEN, Urine Bacteria RARE, Urine Mucus 0 SEEN 03/03/19 22:45: POC Glucose 91 03/04/19 03:44: POC Glucose 92 03/04/19 05:02: WBC 5.2, RBC 2.61 L, Hgb 8.8 L, Hct 29.1 L, MCV 111.5 H, MCH 33.7 H, MCHC 30.2 L, RDW Std Deviation 68.3 H, RDW Coeff of Scott 16.9 H, Plt Count 112 L, MPV 9.7, Immature Gran % (Auto) 0.600, Neut % (Auto) 75.4 H, Lymph % (Auto) 13.8 L, Bee % (Auto) 3.5, Eos % (Auto) 6.1 H, Baso % (Auto) 0.6, Absolute Neuts (auto) 3.9, Absolute Lymphs (auto) 0.72 L, Nucleated RBC % 0, Differential Comment SCANNED, Macrocytosis 2+ 03/04/19 05:02: Sodium 142, Potassium 5.2 H, Chloride 103, Carbon Dioxide 26.0, Anion Gap 13, BUN 55 H, Creatinine 7.94 H*, Estim Creat Clear Calc 8.38, Est GFR (MDRD) Af Amer 7 L, Est GFR (MDRD) Non-Af 6 L, BUN/Creatinine Ratio 6.9 L, Glucose 101, Calcium 9.5 03/04/19 05:02: PT 15.6 H, INR 1.3, APTT 33.6 03/04/19 05:02: Total Bilirubin 0.80, Direct Bilirubin 0.22, AST 20, ALT 22, Alkaline Phosphatase 127 H, Total Protein 7.6, Albumin 3.0 L, Globulin 4.6 H 03/04/19 06:43: POC Glucose 77 Current Medications Acetaminophen (Tylenol) 650 mg PO Q6H PRN PRN PRN Reason: Mild Pain (0-2/10) Last Admin: 03/03/19 22:50 Dose: 650 mg Documented by: Alprazolam (Xanax) 0.5 mg PO MOWEFR PRN PRN Reason: ANXIETY Amlodipine Besylate (Norvasc) 2.5 mg PO DAILY [facility] Aspirin (Aspirin, Baby) 81 mg PO DAILY@0800 [facility] Last Admin: 03/04/19 07:56 Dose: Not Given Documented by: Atorvastatin Calcium (Lipitor) 10 mg PO QHS [facility] Last Admin: 03/03/19 22:50 Dose: 10 mg Documented by: Calcium Acetate (Phoslo Gel Cap) 1,334 mg PO TIDCM [facility] Last Admin: 03/04/19 07:56 Dose: Not Given Documented by: Carvedilol (Coreg) 25 mg PO BID [facility] Last Admin: 03/03/19 22:50 Dose: 25 mg Documented by: Clopidogrel Bisulfate (Plavix) 75 mg PO DAILY [facility] Dextrose (D50w Syringe) 0 gm IV X1 PRN; Protocol PRN Reason: Hypoglycemia Fluoxetine HCl (Prozac) 40 mg PO DAILY [facility] Glucagon () 1 mg IM .X1 PRN PRN Reason: Hypoglycemia Hydralazine HCl (Apresoline) 25 mg PO BID [facility] Last Admin: 03/03/19 22:56 Dose: 25 mg Documented by: Hydroxyzine HCl (Atarax Tablet) 10 mg PO MOWEFR [facility] Vancomycin IV Pharmacy to Dose (1 ea/ Sodium Chloride) 500 mls @ 250 mls/hr IV PRN PRN; Protocol PRN Reason: Rx to Dose Insulin Glargine (Lantus (Bkc)) 5 units SC QHS [facility] Last Admin: 03/03/19 22:53 Dose: Not Given Documented by: Insulin Human Lispro (Humalog Kwikpen (Bkc)) 0 unit SC ACHS [facility]; Protocol Last Admin: 03/04/19 06:45 Dose: Not Given Documented by: Insulin Human Lispro (Humalog Kwikpen (Bkc)) 10 unit SC TIDCM [facility] Last Admin: 03/04/19 07:56 Dose: Not Given Documented by: Isosorbide Mononitrate (Imdur) 60 mg PO DAILY [facility] Lisinopril (Zestril) 10 mg PO DAILY [facility] Melatonin (Melatonin) 3 mg PO QHS PRN PRN PRN Reason: INSOMNIA Last Admin: 03/04/19 00:48 Dose: 3 mg Documented by: Multivit/Ca Carb/B Cmplx/FA/Prenat (Nephrocaps, Renaphro) 1 capsule PO MOWEFR [facility] Ondansetron HCl (Zofran) 4 mg IV Q8H PRN PRN PRN Reason: NAUSEA/VOMITING Last Admin: 03/03/19 22:56 Dose: 4 mg Documented by: Pantoprazole Sodium (Protonix) 20 mg PO BID [facility] Last Admin: 03/03/19 22:50 Dose: 20 mg Documented by: Promethazine HCl (Phenergan Tablet) 25 mg PO Q6H PRN PRN PRN Reason: NAUSEA Last Admin: 03/03/19 16:52 Dose: 25 mg Documented by: Sodium Bicarbonate (Sodium Bicarbonate) 650 mg PO 4X/DAY [facility] Last Admin: 03/03/19 22:50 Dose: 650 mg Documented by: Sodium Chloride () 10 - 40 ml IV UD PRN PRN Reason: SALINE FLUSH Last Admin: 03/03/19 22:56 Dose: 10 ml Documented by: Medical Necessity - Tobacco Use Smoking Status: Former smoker Tobacco Use: Non-smoker Assessment/Plan All Active Problems (Last Reviewed 02/20/19 @ 20:33 by Pricila Olson) Osteomyelitis (Acute) GI bleed (Acute) Metabolic alkalosis (Acute) Chest pain (Resolved) Hypotension (Resolved) Patient is a 43-year-old lady with multiple comorbidities admitted with abdominal pain as well as black from colostomy stoma. Admitted to regular nursing floor with consultation placed to general surgeon Dr. Dill for endoscopic evaluation both upper and lower . Abdominal pain with blood from colostomy stoma do suspect some colitis. Patient has been admitted to regular nursing floor consult placed to Dr. Dlil with general surgery and is a patient to undergo endoscopic evaluation on 03/04/2019 2. Anemia secondary to acute blood loss anemia from above monitoring H&H with plans to transfuse if hemoglobin falls below 7 or patient becomes symptomatic 3. Osteomyelitis involving her coccyx patient had recently been treated at [facility]. Was apparently discharged on clindamycin was started on vancomycin admission consult placed to infectious disease 4. Colostomy did continue with colostomy care 5. Coronary artery disease with history of PCI with stent placement patient is on dual antiplatelet therapy 6. 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 Diabetes mellitus type 2 with complications including end-stage renal disease it continue patient home regimen in addition to Accu-Cheks before meals and at bedtime with sliding scale coverage 8. End-stage renal disease patient is on dialysis on Wednesdays and Fridays consultation placed to nephrology for dialysis orders 9. Chronic congestive heart failure with reduced ejection fraction as a result of ischemic cardiomyopathy currently stable 10. Dyslipidemia: Patient is on Lipitor did continue 11. Hypertension blood pressure stable home medications continued 12. GERD patient is on PPI 13. Depression with anxiety 14. Tobacco dependence counseled on cessation, offered nicotine patch for tobacco cravings 15. Obesity with BMI of 30.7 Active Medications Acetaminophen (Tylenol) 650 mg PO Q6H PRN PRN PRN Reason: Mild Pain (0-2/10) Last Admin: 03/03/19 22:50 Dose: 650 mg Documented by: Alprazolam (Xanax) 0.5 mg PO MOWEFR PRN PRN Reason: ANXIETY Amlodipine Besylate (Norvasc) 2.5 mg PO DAILY [facility] Aspirin (Aspirin, Baby) 81 mg PO DAILY@0800 [facility] Last Admin: 03/04/19 07:56 Dose: Not Given Documented by: Atorvastatin Calcium (Lipitor) 10 mg PO QHS [facility] Last Admin: 03/03/19 22:50 Dose: 10 mg Documented by: Calcium Acetate (Phoslo Gel Cap) 1,334 mg PO TIDCM [facility] Last Admin: 03/04/19 07:56 Dose: Not Given Documented by: Carvedilol (Coreg) 25 mg PO BID [facility] Last Admin: 03/03/19 22:50 Dose: 25 mg Documented by: Clopidogrel Bisulfate (Plavix) 75 mg PO DAILY [facility] Dextrose (D50w Syringe) 0 gm IV X1 PRN; Protocol PRN Reason: Hypoglycemia Fluoxetine HCl (Prozac) 40 mg PO DAILY [facility] Glucagon () 1 mg IM .X1 PRN PRN Reason: Hypoglycemia Hydralazine HCl (Apresoline) 25 mg PO BID [facility] Last Admin: 03/03/19 22:56 Dose: 25 mg Documented by: Hydroxyzine HCl (Atarax Tablet) 10 mg PO MOWEFR [facility] Vancomycin IV Pharmacy to Dose (1 ea/ Sodium Chloride) 500 mls @ 250 mls/hr IV PRN PRN; Protocol PRN Reason: Rx to Dose Insulin Glargine (Lantus (Bk)) 5 units SC QHS [facility] Last Admin: 03/03/19 22:53 Dose: Not Given Documented by: Insulin Human Lispro (Humalog Kwikpen (Bk)) 0 unit SC ACHS [facility]; Protocol Last Admin: 03/04/19 06:45 Dose: Not Given Documented by: Insulin Human Lispro (Humalog Kwikpen ([facility])) 10 unit SC TIDCM [facility] Last Admin: 03/04/19 07:56 Dose: Not Given Documented by: Isosorbide Mononitrate (Imdur) 60 mg PO DAILY [facility] Lisinopril (Zestril) 10 mg PO DAILY [facility] Melatonin (Melatonin) 3 mg PO QHS PRN PRN PRN Reason: INSOMNIA Last Admin: 03/04/19 00:48 Dose: 3 mg Documented by: Multivit/Ca Carb/B Cmplx/FA/Prenat (Nephrocaps, Renaphro) 1 capsule PO MOWEFR [facility] Ondansetron HCl (Zofran) 4 mg IV Q8H PRN PRN PRN Reason: NAUSEA/VOMITING Last Admin: 03/03/19 22:56 Dose: 4 mg Documented by: Pantoprazole Sodium (Protonix) 20 mg PO BID [facility] Last Admin: 03/03/19 22:50 Dose: 20 mg Documented by: Promethazine HCl (Phenergan Tablet) 25 mg PO Q6H PRN PRN PRN Reason: NAUSEA Last Admin: 03/03/19 16:52 Dose: 25 mg Documented by: Sodium Bicarbonate (Sodium Bicarbonate) 650 mg PO 4X/DAY [facility] Last Admin: 03/03/19 22:50 Dose: 650 mg Documented by: Sodium Chloride () 10 - 40 ml IV UD PRN PRN Reason: SALINE FLUSH Last Admin: 03/03/19 22:56 Dose: 10 ml Documented by: Clinical Impression(s) from Imaging Studies Abdomen/Pelvis CT 03/03/19 06:42 IMPRESSION: No acute abnormality of the abdomen and pelvis. There is decubitus ulcer posterior to the coccyx. There is heterogeneous osteolytic lesion in the coccyx suggesting osteomyelitis. Electronically Signed: Shamika Alcantar, at 7:54 EDT Tel , Service support , Code Visit Inpatient E&M: 75436 Subs Hosp L3
--- NOTE | 2019-03-04 08:34 | PCM.PN.SRG ---
Patient Problems: Active and Suspected Problems (Last Reviewed 02/20/19 @ 20:33 by Pricila Olson) Osteomyelitis (Acute) GI bleed (Acute) C. difficile colitis (Suspected) Subjective: no further bleeding, tolerated prep - Physical Exam General: Alert, Oriented x3, Cooperative Vital Signs Temp Pulse Resp BP Pulse Ox 97.4 F L 82 18 108/54 L 95 03/04/19 04:23 03/04/19 04:23 03/04/19 04:23 03/04/19 04:23 03/04/19 04:23 Oxygen Flow Rate (L/min) 2 Oxygen Delivery Method Nasal Cannula Weight: 86.183 kg Body Mass Index (BMI) 30.7 Finger Stick Blood Glucose 118 Intake and Output for Last 24 Hours 03/02/19 03/03/19 03/04/19 23:59 23:59 23:59 Intake Total 1750 / 1750 Output Total 1150 / 1150 200 / 200 Balance 600 / 600 -200 / -200 Microbiology Past 72 Hours 03/03/19 19:10 C. difficile DNA Amplification - Final Stool 03/03/19 19:10 Stool Lactoferrin - Final Stool 03/03/19 06:50 Stool Occult Blood (SCARLET) - Final Stool Occult Blood Positive Laboratory Tests Past 24 Hrs 03/03/19 03/04/19 03/04/19 22:45 05:02 05:02 WBC 5.2 RBC 2.61 L Hgb 8.8 L Hct 29.1 L MCV 111.5 H MCH 33.7 H MCHC 30.2 L RDW Std Deviation 68.3 H RDW Coeff of Scott 16.9 H Plt Count 112 L MPV 9.7 Immature Gran % (Auto) 0.600 Neut % (Auto) 75.4 H Lymph % (Auto) 13.8 L [place] % (Auto) 3.5 Eos % (Auto) 6.1 H Baso % (Auto) 0.6 Absolute Neuts (auto) 3.9 Absolute Lymphs (auto) 0.72 L Nucleated RBC % 0 Differential Comment SCANNED Macrocytosis 2+ PT INR APTT Sodium 142 Potassium 5.2 H Chloride 103 Carbon Dioxide 26.0 Anion Gap 13 BUN 55 H Creatinine 7.94 H* Estim Creat Clear Calc 8.38 Est GFR (MDRD) Af Amer 7 L Est GFR (MDRD) Non-Af 6 L BUN/Creatinine Ratio 6.9 L Glucose 101 Calcium 9.5 Total Bilirubin Direct Bilirubin AST ALT Alkaline Phosphatase Total Protein Albumin Globulin Urine Color Yellow Urine Clarity Clear Urine pH 8.0 Ur Specific [place] 1.010 Urine Protein 100 H Urine Glucose (UA) 50 H Urine Ketones Negative Urine Occult Blood 50 H Urine Nitrite Negative Urine Bilirubin Negative Urine Urobilinogen Normal Ur Leukocyte Esterase 100 H Urine RBC 0-5 SEEN Urine WBC 5-10 SEEN Ur Squamous Epith Cells 5-10 SEEN Urine Bacteria RARE Urine Mucus 0 SEEN 03/04/19 03/04/19 05:02 05:02 WBC RBC Hgb Hct MCV MCH MCHC RDW Std Deviation RDW Coeff of Scott Plt Count MPV Immature Gran % (Auto) Neut % (Auto) Lymph % (Auto) [place] % (Auto) Eos % (Auto) Baso % (Auto) Absolute Neuts (auto) Absolute Lymphs (auto) Nucleated RBC % Differential Comment Macrocytosis PT 15.6 H INR 1.3 APTT 33.6 Sodium Potassium Chloride Carbon Dioxide Anion Gap BUN Creatinine Estim Creat Clear Calc Est GFR (MDRD) Af Amer Est GFR (MDRD) Non-Af BUN/Creatinine Ratio Glucose Calcium Total Bilirubin 0.80 Direct Bilirubin 0.22 AST 20 ALT 22 Alkaline Phosphatase 127 H Total Protein 7.6 Albumin 3.0 L Globulin 4.6 H Urine Color Urine Clarity Urine pH Ur Specific [place] Urine Protein Urine Glucose (UA) Urine Ketones Urine Occult Blood Urine Nitrite Urine Bilirubin Urine Urobilinogen Ur Leukocyte Esterase Urine RBC Urine WBC Ur Squamous Epith Cells Urine Bacteria Urine Mucus POC Glucose 03/04/19 03/04/19 03/03/19 06:43 03:44 22:45 POC Glucose 77 92 91 03/03/19 03/03/19 15:51 11:51 POC Glucose 153 H 148 H Medical Necessity - Tobacco Use Smoking Status: Former smoker Tobacco Use: Non-smoker Assessment/Plan All Active Problems (Last Reviewed 02/20/19 @ 20:33 by Pricila Olson) Osteomyelitis (Acute) GI bleed (Acute) Metabolic alkalosis (Acute) Chest pain (Resolved) Hypotension (Resolved) blood per stoma bag, epigastric abdominal pain. Multiple medical comorbidities, Upper and lower endoscopy was performed. No signs of acute or recent bleeding. She was noted to have mild gastritis and moderate duodenitis. She has granulation tissue at her stoma margin which may have been the source of bleeding. The proximal colon from the stoma to the terminal ileum was unremarkabel. The colon distal to the stoma also appeared healthy without signs of blood. OK with restarting a renal diet Hgb was stable overnight with no further bleeding
[2019-03-04 09:25] LABS: Vancomycin, Random Level 17.6 ug/mL (0.0-15.0)
[2019-03-04] MEDS: Acetaminophen 325 MG Tablet 650 MG PO (09:42)
[2019-03-04 10:30] LABS: Bedside Glucose 71 mg/dL (70-110)
--- NOTE | 2019-03-04 11:01 | CASEMGMT ---
RN CM Assessment Presentation: GIB, Osteo coccyx Intro role of CM and purpose of RN CM assessment. Demographics, PCP and Pharmacy verified. Pt is tearful, states she is in pain and nurse is aware. Pt states is independent @ home. PT/OT evaluations completed and therapies are not recommended. Anticipate pt to return home. -Recent admission to [facility] [place]. Pt states she went home on po antibiotics, no IV or home health. PCP: Dr. Foy Specialists: Dr. Zhang, Gen Surgery, Dr. Dumont, Nephrology Preferred Pharmacy: [facility] Prescription Benefit: yes Dialysis: [facility] MWF 6-10:30 LNOK: Sig other, [facility] Living Arrangements: Lives in apartment with SO and pt's daughter. Is independent in ADL's, but SO can assist if needed. Transportation: SO drives DME: manual WC. Home oxygen through [employer]. Concentrator, portability. Cpap-pt states it was lost when she was at another hospital, and insurance will not pay for a new one for 2 more years. Blood glucose monitoring equipment. HHC: none Patient DC goals: Home on discharge. DC PLAN: anticipate home. With +Osteomylitis and ID consult, will continue to follow for any further needs: dressing changes, possible IV antibiotics, HHC Colin JOVEL RN ACM
--- NOTE | 2019-03-04 11:18 | PN.RENAL_ITS ---
Patient Problems: Active and Suspected Problems (Last Reviewed 02/20/19 @ 20:33 by Pricila Olson) Osteomyelitis (Acute) GI bleed (Acute) C. difficile colitis (Suspected) Subjective: Pt was seen during HD session today No nausea N vomiting. Breathing is good Complaining of right ring finger tip pain - Physical Exam General: Alert, Oriented x3 HEENT: Atraumatic Oral: Moist Mucosa Neck: Supple, No JVD Lungs: Clear to auscultation, Normal air movement, No rhonchi, No wheeze Cardiovascular: Regular rate, Regular Rhythm, Normal S1, Normal S2 Abdomen: Bowel Sounds Present, Soft, Non Tender, Non-Distended Extremities: No clubbing, No cyanosis, No edema Skin: No rashes Musculoskeletal: No Tenderness to Palpation of Joints or Extremities Lymphatic: No Cervical, Supraclavicular, or Inguinal Adenopathy Neurological: Cranial nerves II-XII grossly intact, Neuro grossly intact Psych/Mental Status: Appropriate Vital Signs Temp Pulse Resp BP Pulse Ox 98.6 F 67 18 108/55 L 99 03/04/19 09:47 03/04/19 09:47 03/04/19 09:47 03/04/19 09:47 03/04/19 09:47 Oxygen Flow Rate (L/min) 2 Oxygen Delivery Method Nasal Cannula Weight: 86.183 kg Body Mass Index (BMI) 30.7 Finger Stick Blood Glucose 118 Intake and Output for Last 24 Hours 03/02/19 03/03/19 03/04/19 23:59 23:59 23:59 Intake Total 1750 / 1750 Output Total 1150 / 1150 200 / 200 Balance 600 / 600 -200 / -200 Microbiology Past 72 Hours 03/03/19 19:10 C. difficile DNA Amplification - Final Stool 03/03/19 19:10 Stool Lactoferrin - Final Stool 03/03/19 06:50 Stool Occult Blood (SCARLET) - Final Stool Occult Blood Positive Laboratory Tests Past 24 Hrs 03/03/19 03/04/19 03/04/19 22:45 05:02 05:02 WBC 5.2 RBC 2.61 L Hgb 8.8 L Hct 29.1 L MCV 111.5 H MCH 33.7 H MCHC 30.2 L RDW Std Deviation 68.3 H RDW Coeff of Scott 16.9 H Plt Count 112 L MPV 9.7 Immature Gran % (Auto) 0.600 Neut % (Auto) 75.4 H Lymph % (Auto) 13.8 L [place] % (Auto) 3.5 Eos % (Auto) 6.1 H Baso % (Auto) 0.6 Absolute Neuts (auto) 3.9 Absolute Lymphs (auto) 0.72 L Nucleated RBC % 0 Differential Comment SCANNED Macrocytosis 2+ PT INR APTT Sodium 142 Potassium 5.2 H Chloride 103 Carbon Dioxide 26.0 Anion Gap 13 BUN 55 H Creatinine 7.94 H* Estim Creat Clear Calc 8.38 Est GFR (MDRD) Af Amer 7 L Est GFR (MDRD) Non-Af 6 L BUN/Creatinine Ratio 6.9 L Glucose 101 Calcium 9.5 Total Bilirubin Direct Bilirubin AST ALT Alkaline Phosphatase Total Protein Albumin Globulin Urine Color Yellow Urine Clarity Clear Urine pH 8.0 Ur Specific [place] 1.010 Urine Protein 100 H Urine Glucose (UA) 50 H Urine Ketones Negative Urine Occult Blood 50 H Urine Nitrite Negative Urine Bilirubin Negative Urine Urobilinogen Normal Ur Leukocyte Esterase 100 H Urine RBC 0-5 SEEN Urine WBC 5-10 SEEN Ur Squamous Epith Cells 5-10 SEEN Urine Bacteria RARE Urine Mucus 0 SEEN Random Vancomycin 03/04/19 03/04/19 03/04/19 05:02 05:02 08:35 WBC RBC Hgb Hct MCV MCH MCHC RDW Std Deviation RDW Coeff of Scott Plt Count MPV Immature Gran % (Auto) Neut % (Auto) Lymph % (Auto) [place] % (Auto) Eos % (Auto) Baso % (Auto) Absolute Neuts (auto) Absolute Lymphs (auto) Nucleated RBC % Differential Comment Macrocytosis PT 15.6 H INR 1.3 APTT 33.6 Sodium Potassium Chloride Carbon Dioxide Anion Gap BUN Creatinine Estim Creat Clear Calc Est GFR (MDRD) Af Amer Est GFR (MDRD) Non-Af BUN/Creatinine Ratio Glucose Calcium Total Bilirubin 0.80 Direct Bilirubin 0.22 AST 20 ALT 22 Alkaline Phosphatase 127 H Total Protein 7.6 Albumin 3.0 L Globulin 4.6 H Urine Color Urine Clarity Urine pH Ur Specific [place] Urine Protein Urine Glucose (UA) Urine Ketones Urine Occult Blood Urine Nitrite Urine Bilirubin Urine Urobilinogen Ur Leukocyte Esterase Urine RBC Urine WBC Ur Squamous Epith Cells Urine Bacteria Urine Mucus Random Vancomycin 17.6 H POC Glucose 03/04/19 03/04/1903/04/19 10:08 06:43 03:44 POC Glucose 71 77 92 03/03/19 03/03/19 03/03/19 22:45 15:51 11:51 POC Glucose 91 153 H 148 H Medical Necessity - Tobacco Use Smoking Status: Former smoker Tobacco Use: Non-smoker Assessment/Plan All Active Problems (Last Reviewed 02/20/19 @ 20:33 by Pricila Olson) Osteomyelitis (Acute) GI bleed (Acute) Metabolic alkalosis (Acute) Chest pain (Resolved) Hypotension (Resolved) ESRD n MWF HD schedule Seen during HD session today. BQ 400 DQ 700 UF 1.6 L HD access R upper forearm AVF Anemia of chronic kidney disease also with GI bleed. H and H has been stable. RBC transfusion when HGB < 7. CKD MBD. continue Ca acetate TID with meals Hypertension. BP is well controlled. continue same BP medications GI bleed. going for EGD today Renal team will continue to follow Plan of care was d/w Dr. Patel Valdivia MD [phone]
--- NOTE | 2019-03-04 11:38 | NURSING ---
report called to ac
--- NOTE | 2019-03-04 12:04 | DIALYSIS ---
Hemodialysis treatment completed, fluid removed was 1600. Patient tolerated well, VSS throughout treatment. Immediately following dialysis she was taken for an EGD. See dialysis flow sheet for details. Next HD will be monday03/06/19
--- NOTE | 2019-03-04 12:17 | PCM.RX.CS ---
Consult Pharmacy has been consulted to manage selected antiobiotic: Vancomycin Type of Consult: Follow-up Suspected Infection: Osteomyelitis Prior Doses of Antibiotics Received/Current Regimen: Vancomycin 1250mg IV x1 on 03/03/19 at 0850 Labs: Sodium 142 mmol/L (136-145) 03/04/19 05:02 Potassium 5.2 mmol/L (3.5-5.1) H 03/04/19 05:02 Chloride 103 mmol/L (98-107) 03/04/19 05:02 Carbon Dioxide 26.0 mmol/L (21.0-32.0) 03/04/19 05:02 13 (5-15) 03/04/19 05:02 BUN 55 mg/dL (7-18) H 03/04/19 05:02 7.94 mg/dL (0.55-1.02) H* 03/04/19 05:02 Est GFR (MDRD) Af Amer 7 mL/min (>60) L 03/04/19 05:02 Est GFR (MDRD) Non-Af 6 mL/min (>60) L 03/04/19 05:02 6.9 RATIO (10-20) L 03/04/19 05:02 Glucose 101 mg/dL (74-106) 03/04/19 05:02 Random Vancomycin 17.6 ug/mL (0.0-15.0) H 03/04/19 08:35 Microbiology: Microbiology 03/03/19 19:10 Stool Enteric Bacteriology - Final 03/03/19 19:10 Stool C. difficile DNA Amplification - Final 03/03/19 19:10 Stool Stool Lactoferrin - Final 03/03/19 06:50 Stool Stool Occult Blood (SCARLET) - Final Occult Blood Positive Weight used for dosin kg Estimated Creatinine Clearance: 8ml/min Goal Trough: 15-20 mcg/mL Pharmacy Plan for Drug Dosing: Pt receives dialysis on MWF. Pt received a x1 dose of Vancomycin upon admission on 03/03/19. Pt will receive another dose of Vancomycin post dialysis on 03/04/19. Labs will be drawn pre dialysis on MWF and dosed from those levels. Pharmacy Service will continue to monitor and adjust dosing as required. Follow-Up Labs: Trough Vancomycin - 03/06/19 random
--- NOTE | 2019-03-04 12:30 | IMM_PTH ---
PATIENT: KOURTNEY REZA LOC: MS3 U#:[id number] AGE/SX: 43/F ROOM: [facility] [place] RE03/03/[address]: Dr. Anthony Hill MD : 1975 BED: 1 DIS: 03/05/2019 SPEC #: [id number] RECD: 03/04/19 15:10 STATUS: YADIRA REQ #: [id number] LUZMARIA: 03/04/19 12:[address]: Jhon Zhang DEPT: IMMUNOHISTOCHEMISTRY RECD BY: Candi Arroyo ENTERED: 03/04/19 15:11 SP TYPE: IMMUNO OTHR DR: MD Dr. Anthony Trejo MD Dr. Nicholas F Kotsonis, MD Dr. Robert Leininger, MD Dr. William Lago, MD Tissues: Stomach, NOS Procedures: H Pylori (initial) PHYSICIAN & INSTITUTION [place] [id number] SPECIMEN INFORMATION: Tissue Source: Antrum biopsy Clinical Info: Blood in stool Specimen Number: [id number] CPT code: 50621 METHODOLOGY: Deparaffinized sections of prefer/formalin-fixed tissue or PAP/DQ stained slides are incubated with monoclonal/polyclonal antibodies/oligonucleotide probes. Localization is made via biotin free immunoperoxidase method. Appropriate controls are performed and reacted as expected. Results on target cell population are indicated in the following table: RESULTS: ANTIBODY / CLONE RESULT H Pylori (polyclonal) negative These tests were developed and their performance characteristics determined by [facility]. They may not have been cleared or approved by the U.S. Food and Drug Administration. The FDA has determined that such clearance or approval is not necessary. INTERPRETATION: Antrum biopsy: Negative for Helicobacter pylori organisms. AM:lester 03/05/19
--- NOTE | 2019-03-04 12:30 | EGD_PTH ---
PATIENT: KOURTNEY REZA LOC: MS3 U#:[id number] AGE/SX: 43/F ROOM: [facility] [place] RE03/03/[address]: Dr. Anthony Hill MD : 1975 BED: 1 DIS: 03/05/2019 SPEC #: [id number] RECD: 03/04/19 14:39 STATUS: YADIRA REQ #: [id number] LUZMARIA: 03/04/19 12:[address]: Jhon Zhang DEPT: SURGICAL PATHOLOGY RECD BY: Garrick Angel ENTERED: 03/04/19 14:57 SP TYPE: EGD BIOPSY OTHR DR: MD Dr. Anthony Trejo MD Dr. Nicholas F Kotsonis, MD Dr. Robert Leininger, MD Dr. William Lago, MD Tissues: Gastric mucous membrane Procedures: Surgery Specimen Level IV Comments: @ Ordering doctor for SUIV edited from to @ marlys GARCIA at 03/04/19 2793 @ Submitting doctor edited from to @ marlys GARCIA at 03/04/19 0059 HEADER OPERATION: Colonoscopy[place] [place] PRE-OP DIAGNOSIS: Blood in stool TISSUE SUBMITTED: Antrum biopsy for H. pylori and path MICROSCOPIC DIAGNOSIS Gastric antrum, biopsy: Mild chronic gastritis. See comment. AM:lester 03/05/19 COMMENT The results of immunohistochemistry for Helicobacter pylori will be reported separately ([id number]). MICROSCOPIC DESCRIPTION Slides are reviewed. GROSS DESCRIPTION Received in fixative is one container labeled with the patient's name and designated antral biopsy. The specimen consists of one irregular fragment of light champion soft tissue that measures 0.6 x 0.3 x 0.1 cm. The specimen is totally submitted in one cassette. / AM:lester 03/04/19 TC:3 CPT: 49778
--- NOTE | 2019-03-04 14:26 | OP.ENDO_ITS ---
03/04/2019 Christopher Foy Re : Upper GI endoscopy procedure for Rach Hull Dear Law This procedure was performed on Monday, March 04, 2019. My impressions and recommendations are as follows: Impressions : - Normal examined jejunum. - Duodenitis. - Gastritis. Biopsied. - Normal esophagus. Recommendations : - Return patient to [facility] for ongoing care. - Continue present medications. My findings are described in the full procedure note, which is enclosed. If I can be of further assistance, please feel free to contact me at Doctor phone number(s): , Work: . Sincerely, Jhon Zhang MD 03/04/2019 2:26:16 PM This report has been signed electronically.
--- NOTE | 2019-03-04 14:29 | OP.ENDO_ITS ---
03/04/2019 Christopher Foy Re : Colonoscopy procedure for Rach Hull Dear Law This procedure was performed on Monday, March 04, 2019. My impressions and recommendations are as follows: Impressions : - The examined portion of the ileum was normal. - The entire examined colon is normal. - No specimens collected. Recommendations : - Return patient to [facility] for ongoing care. - No recommendation at this time regarding repeat colonoscopy. - Continue present medications. My findings are described in the full procedure note, which is enclosed. If I can be of further assistance, please feel free to contact me at Doctor phone number(s): , Work: . Sincerely, Jhon Zhang MD 03/04/2019 2:28:54 PM This report has been signed electronically.
[2019-03-04] MEDS: HYDROcodone Bitartrate/Apap 5/325 Tablet PO ×2 (15:31→21:46)
[2019-03-04] MEDS: Sodium Bicarbonate 650 MG Tablet PO ×2 (15:42→21:46)
[2019-03-04] MEDS: FLUoxetine 20 MG Capsule 40 MG PO (15:43)
[2019-03-04] MEDS: Calcium Acetate 667 MG Capsule 1334 MG PO (15:43)
[2019-03-04] MEDS: Folic Acid/Vitamin B Comp W-C 1 Capsule 1 CAP PO (15:43)
[2019-03-04] MEDS: Clopidogrel Bisulfate 75 MG Tablet PO (15:46)
[2019-03-04] MEDS: Pantoprazole Sodium 20 MG Tablet PO ×2 (15:46→21:46)
[2019-03-04] MEDS: 0.9% NaCl Peripheral Flush Adult/Peds IV (16:10)
[2019-03-04 16:21] LABS: Bedside Glucose 101 mg/dL (70-110)
[2019-03-04] MEDS: Insulin Lispro 100 UNIT/ML INSULN.PEN 10 UNIT SC (17:27)
[2019-03-04] MEDS: hydrOXYzine 10 MG Tablet PO (17:28)
[2019-03-04] MEDS: Atorvastatin Calcium 10 MG Tablet PO (21:45)
[2019-03-05] MEDS: Insulin Lispro 100 UNIT/ML INSULN.PEN SC
[2019-03-05] MEDS: MELATONIN 3 MG TABLET PO (00:09)
[2019-03-05 00:30] LABS: Bedside Glucose 155 mg/dL (70-110)
[2019-03-05 02:35] VITALS: BP 101/48; PULSE 82; RESP 20; TEMP 36.8; O2SAT 98
[2019-03-05] MEDS: Morphine 2 MG/ML Syringe IV (02:37)
[2019-03-05] MEDS: HYDROcodone Bitartrate/Apap 5/325 Tablet PO (05:25)
[2019-03-05 05:30] LABS: Absolute Lymphocyte Count 0.87 X10^3/uL (0.83-4.51); Absolute Neutrophil Count 3.7 X10^3/uL (2.0-7.7); Basophil# 0.03 X10^3/uL; Basophil% 0.6 % (0-1); Eosinophil# 0.36 X10^3/uL; Eosinophils% 6.8 % (0-5); Hematocrit 27.9 % (37-47); Hemoglobin 8.5 g/dL (12.0-15.0); Lymphocyte # 0.87 X10^3/ul (4.0); Lymphocyte % 16.5 % (19-41); Mean Corp Hgb Conc 30.5 g/dL (32-36); Mean Corpuscular Volume 111.6 fL (81-99); Mean Platelet Vol. 9.8 fl (6.2-12.0); Monocyte# 0.25 X10^3/uL; Monocyte% 4.8 % (0-10); NRBC Flagged by Analyzer 0 % (0-5); Neutrophil # 3.73 X10^3/uL (2.7-7.7); Neutrophil % 70.9 % (47-70); POSITIVE MORPHOLOGY YES; Platelet Count 111 K/mm3 (150-450); RBC Distribution Width CV 17.1 % (11.6-14.6); RBC Distribution Width SD 69.1 fl (35.1-43.9); White Blood Count 5.3 K/mm3 (4.4-11.0)
[2019-03-05 05:33] LABS: Differential Indicated SCAN CRITERIA MET
[2019-03-05 05:48] LABS: Anion Gap 8 (5-15); BUN 35 mg/dL (7-18); BUN/Creat Ratio 6.9 RATIO (10-20); Calcium,Total 8.6 mg/dL (8.5-10.1); Chloride 103 mmol/L (98-107); Creatinine, Serum 5.09 mg/dL (0.55-1.02); EST Glomerular Filtration Rate 10 mL/min (>60); Est Glom Filt Rate - Afr Amer 12 mL/min (>60); Estimated Creatinine Clearance 13.07 ml/min; Glucose 102 mg/dL (74-106); Magnesium 2.4 mg/dL (1.6-2.6); Sodium Level 140 mmol/L (136-145)
[2019-03-05 06:23] LABS: Anisocytosis 2+; Differential Comment SCANNED; Hypochromasia 1+; Microcytosis 1+; Polychromasia 2+
[2019-03-05 06:45] LABS: Bedside Glucose 114 mg/dL (70-110)
[2019-03-05 06:47] VITALS: O2SAT 96
--- NOTE | 2019-03-05 07:38 | PN_ITS ---
Patient Problems: Active and Suspected Problems (Last Reviewed 02/20/19 @ 20:33 by Pricila Olson) Osteomyelitis (Acute) GI bleed (Acute) C. difficile colitis (Suspected) Subjective: Patient endoscopic evaluation on 03/04/2019 demonstrated gastritis and duodenitis. She was found to have a normal colon. Objective: GENERAL: cooperative HEENT: Atraumatic; EYES; Anicteric, Normal Conjunctiva NECK; supple, normal thyroid, n RESPIRATORY: Diminished to auscultation bilaterally, CARDIOVASCULAR: Regular S1 S2, GI: Colostomy with clear stool : No Renal angle tenderness; EXTREMITIES: Black discoloration involving the tip of the right ring finger MUSCULOSKELETAL: No Joint Tenderness; NEURO: Awake; no lateralizing signs. SKIN: As described above PSYCH; Normal affect Vitals/I&O's: Vital Signs Temp Pulse Resp BP Pulse Ox 98.3 F 82 20 H 101/48 L 98 03/05/19 02:35 03/05/19 02:35 03/05/19 02:35 03/05/19 02:35 03/05/19 02:35 Oxygen Flow Rate (L/min) 2 Oxygen Delivery Method Nasal Cannula Weight: 86.2 kg Body Mass Index (BMI) 30.7 Finger Stick Blood Glucose 118 Intake and Output for Last 24 Hours 03/03/19 03/04/19 03/05/19 23:59 23:59 23:59 Intake Total 1750 / 1750 923 / 1419.3 814.9 / 814.9 Output Total 1150 / 1150 3800 / 4050 550 / 550 Balance 600 / 600 -2877 / -2630.7 264.9 / 264.9 Microbiology Past 72 Hours 03/03/19 19:10 Stool Enteric Bacteriology - Final 03/03/19 19:10 Stool C. difficile DNA Amplification - Final 03/03/19 19:10 Stool Stool Lactoferrin - Final 03/03/19 06:50 Stool Stool Occult Blood (SCARLET) - Final Occult Blood Positive Laboratory Results 03/04/19 08:35: Random Vancomycin 17.6 H 03/04/19 10:08: POC Glucose 71 03/04/19 15:34: POC Glucose 101 03/05/19 00:00: POC Glucose 155 H 03/05/19 05:10: WBC 5.3, RBC 2.50 L, Hgb 8.5 L, Hct 27.9 L, MCV 111.6 H, MCH 34.0 H, MCHC 30.5 L, RDW Std Deviation 69.1 H, RDW Coeff of Scott 17.1 H, Plt Count 111 L, MPV 9.8, Immature Gran % (Auto) 0.400, Neut % (Auto) 70.9 H, Lymph % (Auto) 16.5 L, [place] % (Auto) 4.8, Eos % (Auto) 6.8 H, Baso % (Auto) 0.6, Absolute Neuts (auto) 3.7, Absolute Lymphs (auto) 0.87, Nucleated RBC % 0, Differential Comment SCANNED, Polychromasia 2+, Hypochromasia 1+, Anisocytosis 2+, Microcytosis 1+ 03/05/19 05:10: Sodium 140, Potassium 5.0, Chloride 103, Carbon Dioxide 29.0, Anion Gap 8, BUN 35 H, Creatinine 5.09 H, Estim Creat Clear Calc 13.07, Est GFR (MDRD) Af Amer 12 L, Est GFR (MDRD) Non-Af 10 L, BUN/Creatinine Ratio 6.9 L, Glucose 102, Calcium 8.6, Magnesium 2.4 03/05/19 06:35: POC Glucose 114 H Current Medications Acetaminophen (Tylenol) 650 mg PO Q6H PRN PRN PRN Reason: Mild Pain (0-2/10) Last Admin: 03/04/19 09:42 Dose: 650 mg Documented by: Hydrocodone Bitart/Acetaminophen ([place] 5mg-325mg) 2 tablet PO Q6H PRN PRN PRN Reason: SEVERE PAIN (6-10/10) Last Admin: 03/05/19 05:25 Dose: 2 tablet Documented by: Alprazolam (Xanax) 0.5 mg PO MOWEFR PRN PRN Reason: ANXIETY Amlodipine Besylate (Norvasc) 2.5 mg PO DAILY [facility] Last Admin: 03/04/19 15:36 Dose: Not Given Documented by: Aspirin (Aspirin, Baby) 81 mg PO DAILY@0800 [facility] Last Admin: 03/04/19 07:56 Dose: Not Given Documented by: Atorvastatin Calcium (Lipitor) 10 mg PO QHS [facility] Last Admin: 03/04/19 21:45 Dose: 10 mg Documented by: Calcium Acetate (Phoslo Gel Cap) 1,334 mg PO TIDCM [facility] Last Admin: 03/04/19 15:44 Dose: Not Given Documented by: Carvedilol (Coreg) 25 mg PO BID [facility] Last Admin: 03/04/19 21:45 Dose: Not Given Documented by: Clopidogrel Bisulfate (Plavix) 75 mg PO DAILY [facility] Last Admin: 03/04/19 15:46 Dose: 75 mg Documented by: Dextrose (D50w Syringe) 0 gm IV X1 PRN; Protocol PRN Reason: Hypoglycemia Fluoxetine HCl (Prozac) 40 mg PO DAILY [facility] Last Admin: 03/04/19 15:43 Dose: 40 mg Documented by: Glucagon () 1 mg IM .X1 PRN PRN Reason: Hypoglycemia Hydralazine HCl (Apresoline) 25 mg PO BID [facility] Last Admin: 03/04/19 21:45 Dose: Not Given Documented by: Hydroxyzine HCl (Atarax Tablet) 10 mg PO MOWEFR [facility] Last Admin: 03/04/19 17:28 Dose: 10 mg Documented by: Vancomycin IV Pharmacy to Dose (1 ea/ Sodium Chloride) 500 mls @ 250 mls/hr IV PRN PRN; Protocol PRN Reason: Rx to Dose Insulin Glargine (Lantus (Bkc)) 5 units SC QHS [facility] Last Admin: 03/05/19 00:00 Dose: 5 u Documented by: Insulin Human Lispro (Humalog Kwikpen (Bk)) 0 unit SC ACHS [facility]; Protocol Last Admin: 03/05/19 06:36 Dose: Not Given Documented by: Insulin Human Lispro (Humalog Kwikpen (Bk)) 10 unit SC TIDCM [facility] Last Admin: 03/04/19 17:27 Dose: 10 u Documented by: Isosorbide Mononitrate (Imdur) 60 mg PO DAILY [facility] Last Admin: 03/04/19 15:36 Dose: Not Given Documented by: Lisinopril (Zestril) 10 mg PO DAILY [facility] Last Admin: 03/04/19 15:36 Dose: Not Given Documented by: Melatonin (Melatonin) 3 mg PO QHS PRN PRN PRN Reason: INSOMNIA Last Admin: 03/05/19 00:09 Dose: 3 mg Documented by: Multivit/Ca Carb/B Cmplx/FA/Prenat (Nephrocaps, Renaphro) 1 capsule PO MOWEFR [facility] Last Admin: 03/04/19 15:43 Dose: 1 capsule Documented by: Ondansetron HCl (Zofran) 4 mg IV Q8H PRN PRN PRN Reason: NAUSEA/VOMITING Last Admin: 03/03/19 22:56 Dose: 4 mg Documented by: Pantoprazole Sodium (Protonix) 20 mg PO BID [facility] Last Admin: 03/04/19 21:46 Dose: 20 mg Documented by: Promethazine HCl (Phenergan Tablet) 25 mg PO Q6H PRN PRN PRN Reason: NAUSEA Last Admin: 03/03/19 16:52 Dose: 25 mg Documented by: Sodium Bicarbonate (Sodium Bicarbonate) 650 mg PO 4X/DAY [facility] Last Admin: 03/04/19 21:46 Dose: 650 mg Documented by: Sodium Chloride () 10 - 40 ml IV UD PRN PRN Reason: SALINE FLUSH Last Admin: 03/04/19 16:10 Dose: 10 ml Documented by: Medical Necessity - Tobacco Use Smoking Status: Former smoker Tobacco Use: Non-smoker Assessment/Plan All Active Problems (Last Reviewed 02/20/19 @ 20:33 by Pricila Olsno) Osteomyelitis (Acute) GI bleed (Acute) Metabolic alkalosis (Acute) Chest pain (Resolved) Hypotension (Resolved) Patient is a 43-year-old lady with multiple comorbidities admitted with abdominal pain as well as black from colostomy stoma. Admitted to regular nursing floor with consultation placed to general surgeon Dr. Dill for endoscopic evaluation both upper and lower 1. Abdominal pain with blood from colostomy stoma do suspect some colitis. Patient has been admitted to regular nursing floor consult placed to Dr. Dill with general surgery and is a patient to undergo endoscopic evaluation on 03/04/2019 ~ 03/05/2019:Patient endoscopic evaluation on 03/04/2019 demonstrated gastritis and duodenitis. She was found to have a normal colon. And currently on PPI 2. Anemia secondary to acute blood loss anemia from above monitoring H&H with plans to transfuse if hemoglobin falls below 7 or patient becomes symptomatic 3. 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 Skin examination did not reveal any open wound; was started on vancomycin admission consult placed to infectious disease 4. Recent diagnosis of cellulitis involving left lower extremity patient had recently been treated at [place]. Was apparently discharged on clindamycin 5. Coronary artery disease with history of PCI with stent placement patient is on dual antiplatelet therapy 6. 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 Diabetes mellitus type 2 with complications including end-stage renal disease it continue patient home regimen in addition to Accu-Cheks before meals and at bedtime with sliding scale coverage 8. End-stage renal disease patient is on dialysis on Wednesdays and Fridays consultation placed to nephrology for dialysis orders 9. Chronic congestive heart failure with reduced ejection fraction as a result of ischemic cardiomyopathy currently stable 10. Dyslipidemia: Patient is on Lipitor did continue 11. Hypertension blood pressure stable home medications continued 12. GERD patient is on PPI 13. Depression with anxiety 14. Tobacco dependence counseled on cessation, offered nicotine patch for tobacco cravings 15. Obesity with BMI of 30.7 16. Colostomy did continue with colostomy care Code Visit Inpatient E&M: 90362 Subs Hosp L2
[2019-03-05 07:49] VITALS: BP 114/51; PULSE 79; RESP 18; TEMP 36.5; O2SAT 98
[2019-03-05 08:01] LABS: Bedside Glucose 136 mg/dL (70-110)
[2019-03-05] MEDS: Insulin Lispro 100 UNIT/ML INSULN.PEN 10 UNIT SC ×2 (08:08→12:03)
[2019-03-05] MEDS: Aspirin 81 MG TAB.CHEW PO (08:08)
[2019-03-05] MEDS: Calcium Acetate 667 MG Capsule 1334 MG PO ×2 (08:08→12:03)
--- NOTE | 2019-03-05 10:23 | CON.PCM_ITS ---
Reason for Consult: Concern of coccyx osteomyelitis Consulted by: Dr. Kauffman History of Present Illness: The patient is a 43 year old F [] This is a 43-year-old white female with multiple comorbidities including long- standing diabetes mellitus complicated by end-stage renal disease on hemodialysis via left arm fistula, coronary artery disease, history of pressure ulcer of her coccyx area to require surgery and also she underwent a diverting colostomy who presents with vague abdominal pain and also pain in the right hand where she had some area of necrosis in her distal finger. No fevers or chills she does have a history of C. difficile infection and was recently hospitalized off hospital for lower extremity cellulitis where she received antimicrobial therapy. In lieu of of her abdominal pain she underwent a CT scan of the abdomen pelvis, on that imaging study there was concern of some bone changes in the coccyx suggestive of osteomyelitis. In talking to the patient she denies any significant pain in her pelvic area, lower back. No fevers or shaking chills. No significant constitutional symptoms. Patient was found to be anemic and underwent upper and lower endoscopy yesterday. Patient is currently on vancomycin empirically upon this admission. - Medical History Past Medical History (Chronic Problems): Chronic Problems (Last Reviewed 02/20/19 @ 20:33 by Pricila Olson) Peripheral arterial disease (Chronic) Acute on chronic systolic (congestive) heart failure (Chronic) Ischemic cardiomyopathy (Chronic) EF in December 2018 on a stress test was 29% with extensive wall motion abnormalities COPD (chronic obstructive pulmonary disease) (Chronic) Elevated troponin I level (Chronic) Anemia due to chronic kidney disease (Chronic) CAD (coronary artery disease) (Chronic) Stented coronary artery (Chronic 01/28/19) FFR of LAD 0.82; VIKY of mid LAD with 2.5 X 24 mm Promus Synergy, OM <50% stenosis per Dr. Magdaleno @ [facility];Occluded mid LAD stent with L to R collaterals. Double vessel CAD of the LCX and OM#1 Segmented LV systolic dysfunction- Severe LVEF: by LV gram 25 % Elevated Left Ventricular End Diastolic Pressure Successful PCI with PTCA to the proximal OM#1 with a 1.5 and 2.0 mm balloon; unable to advance new deflated balloon beyond mid OM due to calcification. No dissection, no stents placed and pt had no symptoms . Successful PTCA/VIKY to mid LCX with 2.25 x 12 Promus Synergy, post dilated with a 2.25 x 8 NC Balloon; 75%-->0%, no dissection. ESRD (end stage renal disease) on dialysis (Chronic) Decubitus ulcer, stage III (Chronic) GABRIEL (obstructive sleep apnea) (Chronic) Depression (Chronic) Anxiety (Chronic) HTN (hypertension) (Chronic) S/P repair of PDA (patent ductus arteriosus) (Chronic) At young age Hyperlipidemia (Chronic) Obesity (BMI 30.0-34.9) (Chronic) Gastroparesis (Chronic) Allergies/Adverse Reactions: Allergies latex Allergy (Verified 03/03/19 06:35) Rash prochlorperazine [From Compazine] Allergy (Verified 03/03/19 06:35) Unknown levofloxacin [From Levaquin] Adverse Reaction (Verified 03/03/19 06:35) PT CAN'T REMEMBER PT CAN'T REMEMBER metoclopramide HCl [From Reglan] Adverse Reaction (Verified 03/03/19 06:35) Nausea NSAIDS (Non-Steroidal Anti-Inflamma Adverse Reaction (Verified 03/03/19 06:35) kidney function oxycodone HCl [From Percocet] Adverse Reaction (Verified 03/03/19 06:35) HALLUCINATIONS Home Medications: Ambulatory Orders Medication Instructions Recorded Aspirin [Aspirin, Baby] 81 mg PO DAILY@0800 01/26/16 Calcium Acetate [Phoslo Gel Cap] 1,334 mg PO TIDCM 01/26/16 Ergocalciferol [Vitamin D] 50,000 unit PO MO 01/26/16 Insulin Aspart [Novolog Flexpen] 10 units SC TIDCM 01/26/16 Insulin Glargine,Hum.rec.anlog 5 unit SQ QHS 01/09/17 [Lantus] proMETHazine tablet [Phenergan 25 mg PO Q6H PRN PRN #10 tab 03/06/17 tablet] Sodium Bicarbonate 650 mg PO 4X/DAY 03/29/17 Atorvastatin Calcium [Lipitor] 10 mg PO QHS 05/26/18 Carvedilol [Coreg] 25 mg PO BID 05/26/18 Loperamide HCl [Imodium A-D] 2 mg PO TID PRN 05/26/18 Pantoprazole Sodium [Protonix] 20 mg PO BID 05/26/18 Clopidogrel Bisulfate [Plavix] 75 mg PO DAILY 07/01/18 ALPRAZolam [Xanax] 0.5 mg PO WE PRN 08/09/18 B Complex W-C No.20/Folic Acid 1 mg PO MOWE08/09/18 [Nephrocaps Softgel] Fluoxetine HCl 40 mg PO DAILY 08/09/18 Lidocaine/Prilocaine HCl [[place] 1 applicatio TOPICAL MOWEFR 10/01/18 Cream W/Tegaderm] Nystatin Powder [Mycostatin Powder] 1 applic TOPICAL BID PRN 10/14/18 hydrOXYzine tablet [Atarax tablet] 10 mg PO MOWEFR 11/06/18 Sodium Chloride 0.65% [[place] Nasal 2 spray NASAL TID PRN PRN 12/14/18 [place]] spray.btl Isosorbide Mononitrate [Imdur] 60 mg PO DAILY #30 tab 01/01/19 Lisinopril [Zestril] 10 mg PO DAILY #30 tab 01/01/19 Acetaminophen [Tylenol Tablet] 650 mg PO Q6H PRN PRN tab 01/29/19 Nitroglycerin (INPATIENT USE) 0.4 mg SUBLINGUAL Q5M PRN #10 01/29/19 [Nitrostat] tab.subl hydrALAZINE [Apresoline] 25 mg PO BID #60 tab 01/29/19 amlodipine 2.5 mg tablet 2.5 mg PO DAILY 02/28/19 - Social History SMOKING STATUS:: Former smoker Vital Signs Temp Pulse Resp BP Pulse Ox 97.7 F L 79 18 114/51 L 98 03/05/19 07:49 03/05/19 07:49 03/05/19 07:49 03/05/19 07:49 03/05/19 07:49 Oxygen Flow Rate (L/min) 2 Oxygen Delivery Method Nasal Cannula Weight: 86.2 kg Body Mass Index (BMI) 30.7 Finger Stick Blood Glucose 118 Patient is alert does not appear acutely ill in her right hand and very distal aspect of 1 of her digits wrist areas dried necrosis lungs are clear heart exam S1-S2 abdomen soft with colostomy in place I did examine her lower back and coccyx area no erythema or skin breakdown at this time Microbiology Past 72 Hours 03/03/19 19:10 Enteric Bacteriology - Final Stool 03/03/19 19:10 C. difficile DNA Amplification - Final Stool 03/03/19 19:10 Stool Lactoferrin - Final Stool 03/03/19 06:50 Stool Occult Blood (SCARLET) - Final Stool Occult Blood Positive Laboratory Tests Past 24 Hrs 03/05/19 03/05/19 05:10 05:10 WBC 5.3 RBC 2.50 L Hgb 8.5 L Hct 27.9 L MCV 111.6 H MCH 34.0 H MCHC 30.5 L RDW Std Deviation 69.1 H RDW Coeff of Scott 17.1 H Plt Count 111 L MPV 9.8 Immature Gran % (Auto) 0.400 Neut % (Auto) 70.9 H Lymph % (Auto) 16.5 L [place] % (Auto) 4.8 Eos % (Auto) 6.8 H Baso % (Auto) 0.6 Absolute Neuts (auto) 3.7 Absolute Lymphs (auto) 0.87 Nucleated RBC % 0 Differential Comment SCANNED Polychromasia 2+ Hypochromasia 1+ Anisocytosis 2+ Microcytosis 1+ Sodium 140 Potassium 5.0 Chloride 103 Carbon Dioxide 29.0 Anion Gap 8 BUN 35 H Creatinine 5.09 H Estim Creat Clear Calc 13.07 Est GFR (MDRD) Af Amer 12 L Est GFR (MDRD) Non-Af 10 L BUN/Creatinine Ratio 6.9 L Glucose 102 Calcium 8.6 Magnesium 2.4 - Other Studies Radiology: [] Other Studies: [] Route of nutrition/ use of supplements: [] Nutritional Intake: [] IV Site: [] Meyer Catheter: [] - Assessment/Plan Antibiotics: [] Assessment/Plan: [] Active and Suspected Problems (Last Reviewed 02/20/19 @ 20:33 by Pricila Olson) Osteomyelitis (Acute) GI bleed (Acute) C. difficile colitis (Suspected) Concern of osteomyelitis of the coccyx suggested on imaging study of a CAT scan. Clinically my suspicion is low. If there is further concern of toxic osteomyelitis I would proceed with a diagnostic bone biopsy of the coccyx area and sent the specimen to histology as well as to microbiology. At this point I would discontinue vancomycin.
[2019-03-05 10:52] VITALS: PULSE 79
[2019-03-05] MEDS: hydrALAZINE 25 MG Tablet PO (10:52)
[2019-03-05] MEDS: Clopidogrel Bisulfate 75 MG Tablet PO (10:52)
[2019-03-05] MEDS: amLODIPine 2.5 MG Tablet PO (10:52)
[2019-03-05] MEDS: Carvedilol 25 MG Tablet PO (10:52)
[2019-03-05] MEDS: Pantoprazole Sodium 20 MG Tablet PO (10:52)
[2019-03-05] MEDS: Sodium Bicarbonate 650 MG Tablet PO (10:52)
[2019-03-05] MEDS: Lisinopril 10 MG Tablet PO (10:52)
[2019-03-05] MEDS: FLUoxetine 20 MG Capsule 40 MG PO (10:52)
[2019-03-05] MEDS: 0.9% NaCl Peripheral Flush Adult/Peds IV (10:53)
[2019-03-05] MEDS: HYDROmorphone 0.5 MG/0.5 ML SYRINGE IV (10:53)
[2019-03-05] MEDS: Isosorbide Mononitrate 60 MG Tablet PO (11:04)
[2019-03-05 11:26] LABS: Bedside Glucose 73 mg/dL (70-110)
--- NOTE | 2019-03-05 12:08 | NURSING ---
Addendum entered by Sasha Monique 03/05/19 12:09: Skin intact around stoma. Stoma beefy red. Original Note: Wound/ Ostomy nurse: Pt reported ostomy appliance not sealing well. Assisted pt with changing ostomy appliance. Pt independent with this. Pt to be discharged home today.
--- NOTE | 2019-03-05 12:53 | PCM.PN.REN ---
Patient Problems: Active and Suspected Problems (Last Reviewed 02/20/19 @ 20:33 by Pricila Olson) Osteomyelitis (Acute) GI bleed (Acute) C. difficile colitis (Suspected) Subjective: Patient tolerated dialysis well yesterday. No nausea no vomiting. No abdominal pain. No shortness of breath. Patient states she is no more having bloody bowel movement from the stoma - Physical Exam General: Alert, Oriented x3 HEENT: Atraumatic Oral: Moist Mucosa Neck: Supple, No JVD Lungs: Clear to auscultation, Normal air movement, No rhonchi, No wheeze Cardiovascular: Regular rate, Regular Rhythm, Normal S1, Normal S2 Abdomen: Bowel Sounds Present, Soft, Non Tender, Non-Distended Extremities: No clubbing, No cyanosis, No edema Skin: No rashes Musculoskeletal: No Tenderness to Palpation of Joints or Extremities Lymphatic: No Cervical, Supraclavicular, or Inguinal Adenopathy Neurological: Cranial nerves II-XII grossly intact, Neuro grossly intact Psych/Mental Status: Normal Affect Vital Signs Temp Pulse Resp BP Pulse Ox 97.7 F L 79 18 114/51 L 98 03/05/19 07:49 03/05/19 10:52 03/05/19 07:49 03/05/19 07:49 03/05/19 07:49 Oxygen Flow Rate (L/min) 2 Oxygen Delivery Method Nasal Cannula Weight: 86.2 kg Body Mass Index (BMI) 30.7 Finger Stick Blood Glucose 118 Intake and Output for Last 24 Hours 03/03/19 03/04/19 03/05/19 23:59 23:59 23:59 Intake Total 1750 / 1750 923 / 1419.3 814.9 / 814.9 Output Total 1150 / 1150 3800 / 4050 550 / 550 Balance 600 / 600 -2877 / -2630.7 264.9 / 264.9 Microbiology Past 72 Hours 03/03/19 19:10 Enteric Bacteriology - Final Stool 03/03/19 19:10 C. difficile DNA Amplification - Final Stool 03/03/19 19:10 Stool Lactoferrin - Final Stool 03/03/19 06:50 Stool Occult Blood (SCARLET) - Final Stool Occult Blood Positive Laboratory Tests Past 24 Hrs 03/05/19 03/05/19 05:10 05:10 WBC 5.3 RBC 2.50 L Hgb 8.5 L Hct 27.9 L MCV 111.6 H MCH 34.0 H MCHC 30.5 L RDW Std Deviation 69.1 H RDW Coeff of Scott 17.1 H Plt Count 111 L MPV 9.8 Immature Gran % (Auto) 0.400 Neut % (Auto) 70.9 H Lymph % (Auto) 16.5 L [place] % (Auto) 4.8 Eos % (Auto) 6.8 H Baso % (Auto) 0.6 Absolute Neuts (auto) 3.7 Absolute Lymphs (auto) 0.87 Nucleated RBC % 0 Differential Comment SCANNED Polychromasia 2+ Hypochromasia 1+ Anisocytosis 2+ Microcytosis 1+ Sodium 140 Potassium 5.0 Chloride 103 Carbon Dioxide 29.0 Anion Gap 8 BUN 35 H Creatinine 5.09 H Estim Creat Clear Calc 13.07 Est GFR (MDRD) Af Amer 12 L Est GFR (MDRD) Non-Af 10 L BUN/Creatinine Ratio 6.9 L Glucose 102 Calcium 8.6 Magnesium 2.4 POC Glucose 03/05/19 03/05/19 03/05/19 11:21 07:54 06:35 POC Glucose 73 136 H 114 H 03/05/19 03/04/19 00:00 15:34 POC Glucose 155 H 101 Medical Necessity - Tobacco Use Smoking Status: Former smoker Tobacco Use: Non-smoker Assessment/Plan All Active Problems (Last Reviewed 02/20/19 @ 20:33 by Pricila Olson) Osteomyelitis (Acute) GI bleed (Acute) Metabolic alkalosis (Acute) Chest pain (Resolved) Hypotension (Resolved) ESRD n MWF HD schedule Last hemodialysis session was on March 04 with 1.6 L ultrafiltration. Next hemodialysis will be tomorrow. HD access R upper forearm AVF Anemia of chronic kidney disease also with GI bleed. H and H has been stable. RBC transfusion when HGB < 7. CKD MBD. continue Ca acetate TID with meals Hypertension. BP is in the low side. Norvasc continue same other BP medications GI bleed. She had EGD which showed duodenitis and gastritis. Biopsies were taken. Colonoscopy was normal Renal team will continue to follow Please call if any question of concern Maria Isabel Valdivia MD [phone]
--- NOTE | 2019-03-05 14:01 | PCM.DC.SUM ---
Discharge Date and Diagnosis - Problem List Patient Problems: Active and Suspected Problems (Last Reviewed 02/20/19 @ 20:33 by Pricila Olson) Raynaud's disease with gangrene (Acute) GI bleed (Acute) C. difficile colitis (Suspected) Date of Admission: 03/03/19 Date of Discharge: 03/05/19 - Primary Discharge Diagnosis Active and Suspected Problems (Last Reviewed 02/20/19 @ 20:33 by Pricila Olson) Osteomyelitis (Acute) GI bleed (Acute) C. difficile colitis (Suspected) - Secondary Discharge Diagnosis Chronic Problems (Last Reviewed 02/20/19 @ 20:33 by Pricila Olson) Peripheral arterial disease (Chronic) Acute on chronic systolic (congestive) heart failure (Chronic) Ischemic cardiomyopathy (Chronic) EF in December 2018 on a stress test was 29% with extensive wall motion abnormalities COPD (chronic obstructive pulmonary disease) (Chronic) Elevated troponin I level (Chronic) Anemia due to chronic kidney disease (Chronic) CAD (coronary artery disease) (Chronic) Stented coronary artery (Chronic 01/28/19) FFR of LAD 0.82; VIKY of mid LAD with 2.5 X 24 mm Promus Synergy, OM <50% stenosis per Dr. Magdaleno @ [facility];Occluded mid LAD stent with L to R collaterals. Double vessel CAD of the LCX and OM#1 Segmented LV systolic dysfunction- Severe LVEF: by LV gram 25 % Elevated Left Ventricular End Diastolic Pressure Successful PCI with PTCA to the proximal OM#1 with a 1.5 and 2.0 mm balloon; unable to advance new deflated balloon beyond mid OM due to calcification. No dissection, no stents placed and pt had no symptoms . Successful PTCA/VIKY to mid LCX with 2.25 x 12 Promus Synergy, post dilated with a 2.25 x 8 NC Balloon; 75%-->0%, no dissection. ESRD (end stage renal disease) on dialysis (Chronic) Decubitus ulcer, stage III (Chronic) GABRIEL (obstructive sleep apnea) (Chronic) Depression (Chronic) Anxiety (Chronic) HTN (hypertension) (Chronic) S/P repair of PDA (patent ductus arteriosus) (Chronic) At young age Hyperlipidemia (Chronic) Obesity (BMI 30.0-34.9) (Chronic) Gastroparesis (Chronic) Hospital Course and Treatment Imaging Results: Clinical Impression(s) from Imaging Studies Abdomen/Pelvis CT 03/03/19 06:42 IMPRESSION: No acute abnormality of the abdomen and pelvis. There is decubitus ulcer posterior to the coccyx. There is heterogeneous osteolytic lesion in the coccyx suggesting osteomyelitis. Electronically Signed: Shamika Alcantar, at 7:54 EDT Tel , Service support , Consultations 03/03/19 16:23 Consult: Onc/Wound/press operator automatic Routine Comment: Operations: None Summary of Care Provided: Patient is a 43-year-old lady with multiple comorbidities admitted with abdominal pain as well as black from colostomy stoma. Admitted to regular nursing floor with consultation placed to general surgeon Dr. Dill for endoscopic evaluation both upper and lower 1. Abdominal pain with blood from colostomy stoma do suspect some colitis. Patient has been admitted to regular nursing floor consult placed to Dr. Dill with general surgery and is a patient to undergo endoscopic evaluation on 03/04/2019Patient endoscopic evaluation on 03/04/2019 demonstrated gastritis and duodenitis. She was found to have a normal colon. And currently on PPI 2. Anemia secondary to acute blood loss anemia from above monitoring H&H with plans to transfuse if hemoglobin falls below 7 or patient becomes symptomatic 3. Questionable osteomyelitis involving her coccyx patient this is been a chronic finding. Skin examination did not reveal any open wound; was started on vancomycin admission consult placed to infectious disease patient was seen by Dr. Zuñiga who felt patient presentation was not consistent with acute osteomyelitis antibiotics discontinued 4. Recent diagnosis of cellulitis involving left lower extremity patient had recently been treated at [place]. Was apparently discharged on clindamycin 5. Coronary artery disease with history of PCI with stent placement patient is on dual antiplatelet therapy 6. Peripheral arterial disease as well as Marcel's disease patient presented with gangrene involving the tip of the right ring finger patient instructed to follow-up with PCP for referral to rheumatology as well as vascular surgery for subsequent management 7. Diabetes mellitus type 2 with complications including end-stage renal disease it continue patient home regimen in addition to Accu-Cheks before meals and at bedtime with sliding scale coverage 8. End-stage renal disease patient is on dialysis on Wednesdays and Fridays consultation placed to nephrology for dialysis orders 9. Chronic congestive heart failure with reduced ejection fraction as a result of ischemic cardiomyopathy currently stable 10. Dyslipidemia: Patient is on Lipitor did continue 11. Hypertension blood pressure stable home medications continued 12. GERD patient is on PPI 13. Depression with anxiety 14. Tobacco dependence counseled on cessation, offered nicotine patch for tobacco cravings 15. Obesity with BMI of 30.7 16. Colostomy did continue with colostomy care Patient Problems: Active and Suspected Problems (Last Reviewed 02/20/19 @ 20:33 by Pricila Olson) Raynaud's disease with gangrene (Acute) GI bleed (Acute) C. difficile colitis (Suspected) Objective: GENERAL: cooperative HEENT: Atraumatic; EYES; Anicteric, Normal Conjunctiva NECK; supple, normal thyroid, n RESPIRATORY: Diminished to auscultation bilaterally, CARDIOVASCULAR: Regular S1 S2, GI: Colostomy with clear stool : No Renal angle tenderness; EXTREMITIES: Black discoloration involving the tip of the right ring finger MUSCULOSKELETAL: No Joint Tenderness; NEURO: Awake; no lateralizing signs. SKIN: As described above PSYCH; Normal affect - Physical Exam Vital Signs Temp Pulse Resp BP Pulse Ox 97.7 F L 79 18 114/51 L 98 03/05/19 07:49 03/05/19 10:52 03/05/19 07:49 03/05/19 07:49 03/05/19 07:49 Oxygen Flow Rate (L/min) 2 Oxygen Delivery Method Nasal Cannula Weight: 86.2 kg Body Mass Index (BMI) 30.7 Finger Stick Blood Glucose 118 Intake and Output for Last 24 Hours 03/03/19 03/04/19 03/05/19 23:59 23:59 23:59 Intake Total 1750 / 1750 923 / 1419.3 814.9 / 814.9 Output Total 1150 / 1150 3800 / 4050 550 / 550 Balance 600 / 600 -2877 / -2630.7 264.9 / 264.9 Microbiology Past 72 Hours 03/03/19 19:10 Enteric Bacteriology - Final Stool 03/03/19 19:10 C. difficile DNA Amplification - Final Stool 03/03/19 19:10 Stool Lactoferrin - Final Stool 03/03/19 06:50 Stool Occult Blood (SCARLET) - Final Stool Occult Blood Positive Laboratory Tests Past 24 Hrs 03/05/19 03/05/19 05:10 05:10 WBC 5.3 RBC 2.50 L Hgb 8.5 L Hct 27.9 L MCV 111.6 H MCH 34.0 H MCHC 30.5 L RDW Std Deviation 69.1 H RDW Coeff of Scott 17.1 H Plt Count 111 L MPV 9.8 Immature Gran % (Auto) 0.400 Neut % (Auto) 70.9 H Lymph % (Auto) 16.5 L [place] % (Auto) 4.8 Eos % (Auto) 6.8 H Baso % (Auto) 0.6 Absolute Neuts (auto) 3.7 Absolute Lymphs (auto) 0.87 Nucleated RBC % 0 Differential Comment SCANNED Polychromasia 2+ Hypochromasia 1+ Anisocytosis 2+ Microcytosis 1+ Sodium 140 Potassium 5.0 Chloride 103 Carbon Dioxide 29.0 Anion Gap 8 BUN 35 H Creatinine 5.09 H Estim Creat Clear Calc 13.07 Est GFR (MDRD) Af Amer 12 L Est GFR (MDRD) Non-Af 10 L BUN/Creatinine Ratio 6.9 L Glucose 102 Calcium 8.6 Magnesium 2.4 POC Glucose 03/05/19 03/05/19 03/05/19 11:21 07:54 06:35 POC Glucose 73 136 H 114 H 03/05/19 03/04/19 00:00 15:34 POC Glucose 155 H 101 Discharge Diet: Renal Diet Discharge Activity: Return to Normal Activity, May not drive while taking narcotic pain medications. Home Medications: Medications to take at Discharge Aspirin [Aspirin, Baby] 81 mg PO DAILY@0800 01/26/16 Calcium Acetate [Phoslo Gel Cap] 1,334 mg PO TIDCM 01/26/16 Ergocalciferol [Vitamin D] 50,000 unit PO MO 01/26/16 Insulin Aspart [Novolog Flexpen] 10 units SC TIDCM 01/26/16 Insulin Glargine,Hum.rec.anlog [Lantus] 5 unit SQ QHS 01/09/17 proMETHazine tablet [Phenergan tablet] 25 mg PO Q6H PRN PRN #10 tab 03/06/17 Sodium Bicarbonate 650 mg PO 4X/DAY 03/29/17 Atorvastatin Calcium [Lipitor] 10 mg PO QHS 05/26/18 Carvedilol [Coreg] 25 mg PO BID 05/26/18 Loperamide HCl [Imodium A-D] 2 mg PO TID PRN 05/26/18 Pantoprazole Sodium [Protonix] 20 mg PO BID 05/26/18 Clopidogrel Bisulfate [Plavix] 75 mg PO DAILY 07/01/18 ALPRAZolam [Xanax] 0.5 mg PO MOWEFR PRN 08/09/18 B Complex W-C No.20/Folic Acid [Nephrocaps Softgel] 1 mg PO MOWEFR 08/09/18 Fluoxetine HCl 40 mg PO DAILY 08/09/18 Lidocaine/Prilocaine HCl [Emla Cream W/Tegaderm] 1 applicatio TOPICAL MOWEFR 10/01/18 Nystatin Powder [Mycostatin Powder] 1 applic TOPICAL BID PRN 10/14/18 hydrOXYzine tablet [Atarax tablet] 10 mg PO MOWEFR 11/06/18 Sodium Chloride 0.65% [[place] Nasal [place]] 2 spray NASAL TID PRN PRN spray.btl 12/14/18 Isosorbide Mononitrate [Imdur] 60 mg PO DAILY #30 tab 01/01/19 Lisinopril [Zestril] 10 mg PO DAILY #30 tab 01/01/19 Acetaminophen [Tylenol Tablet] 650 mg PO Q6H PRN PRN tab 01/29/19 Nitroglycerin (INPATIENT USE) [Nitrostat] 0.4 mg SUBLINGUAL Q5M PRN #10 tab.subl 01/29/19 hydrALAZINE [Apresoline] 25 mg PO BID #60 tab 01/29/19 amlodipine 2.5 mg tablet 2.5 mg PO DAILY 02/28/19 Primary Care Physician: Christopher Foy MD [Primary Care Provider] - Disposition: Home Minutes spent on discharge:: 35 Patient Condition:: Stable Medical Necessity - Tobacco Use Smoking Status: Former smoker Tobacco Use: Non-smoker Meaningful Use Info Meaningful Use Diagnoses (Choose all that apply): None applicable Code Visit Inpatient E&M: 99695 Disch Hosp
--- NOTE | 2019-03-05 14:01 | PCM.DC ---
- Discharge Diagnoses Current Active Problems: Current Active and Chronic Problems (Last Reviewed 02/20/19 @ 20:33 by Pricila Olson) Osteomyelitis (Acute) GI bleed (Acute) You will use the following diet at home:: Renal (restricted protein/sodium) Discharge Activity: Return to Normal Activity, May not drive while taking narcotic pain medications. Allergies/Adverse Reactions: Allergies latex Allergy (Verified 03/03/19 06:35) Rash prochlorperazine [From Compazine] Allergy (Verified 03/03/19 06:35) Unknown levofloxacin [From Levaquin] Adverse Reaction (Verified 03/03/19 06:35) PT CAN'T REMEMBER PT CAN'T REMEMBER metoclopramide HCl [From Reglan] Adverse Reaction (Verified 03/03/19 06:35) Nausea NSAIDS (Non-Steroidal Anti-Inflamma Adverse Reaction (Verified 03/03/19 06:35) kidney function oxycodone HCl [From Percocet] Adverse Reaction (Verified 03/03/19 06:35) HALLUCINATIONS Medications to take at Discharge Aspirin [Aspirin, Baby] 81 mg PO DAILY@0800 01/26/16 Calcium Acetate [Phoslo Gel Cap] 1,334 mg PO TIDCM 01/26/16 Ergocalciferol [Vitamin D] 50,000 unit PO MO 01/26/16 Insulin Aspart [Novolog Flexpen] 10 units SC TIDCM 01/26/16 Insulin Glargine,Hum.rec.anlog [Lantus] 5 unit SQ QHS 01/09/17 proMETHazine tablet [Phenergan tablet] 25 mg PO Q6H PRN PRN #10 tab 03/06/17 Sodium Bicarbonate 650 mg PO 4X/DAY 03/29/17 Atorvastatin Calcium [Lipitor] 10 mg PO QHS 05/26/18 Carvedilol [Coreg] 25 mg PO BID 05/26/18 Loperamide HCl [Imodium A-D] 2 mg PO TID PRN 05/26/18 Pantoprazole Sodium [Protonix] 20 mg PO BID 05/26/18 Clopidogrel Bisulfate [Plavix] 75 mg PO DAILY 07/01/18 ALPRAZolam [Xanax] 0.5 mg PO MOWEFR PRN 08/09/18 B Complex W-C No.20/Folic Acid [Nephrocaps Softgel] 1 mg PO MOWEFR 08/09/18 Fluoxetine HCl 40 mg PO DAILY 08/09/18 Lidocaine/Prilocaine HCl [Emla Cream W/Tegaderm] 1 applicatio TOPICAL MOWEFR 10/01/18 Nystatin Powder [Mycostatin Powder] 1 applic TOPICAL BID PRN 10/14/18 hydrOXYzine tablet [Atarax tablet] 10 mg PO MOWEFR 11/06/18 Sodium Chloride 0.65% [[place] Nasal [place]] 2 spray NASAL TID PRN PRN spray.btl 12/14/18 Isosorbide Mononitrate [Imdur] 60 mg PO DAILY #30 tab 01/01/19 Lisinopril [Zestril] 10 mg PO DAILY #30 tab 01/01/19 Acetaminophen [Tylenol Tablet] 650 mg PO Q6H PRN PRN tab 01/29/19 Nitroglycerin (INPATIENT USE) [Nitrostat] 0.4 mg SUBLINGUAL Q5M PRN #10 tab.subl 01/29/19 hydrALAZINE [Apresoline] 25 mg PO BID #60 tab 01/29/19 amlodipine 2.5 mg tablet 2.5 mg PO DAILY 02/28/19 Primary Care Physician: Christopher Foy MD [Primary Care Provider] - Please follow up with your Primary Care Physician in: 2 days for referral to a website optimization strategist as well as vascular surgeon Test Results: Test results from this visit will be discussed in further detail at your follow-up appointment, if applicable. Proposed Discharge Date: 03/05/19
[2019-03-05 14:04] VITALS: BP 98/64; PULSE 68; RESP 18; TEMP 36.9; O2SAT 98
--- NOTE | 2019-03-05 14:10 | CASEMGMT ---
RN CM in to discuss needs at discharge. Patient states that she does not have any needs at discharge. Patient states that her boyfriend is not able to provide transportation and discharge and will need transport setup. Floor nurse updated and transport setup for 2:30. RN [facility]
--- NOTE | 2019-03-05 19:29 | PN.SURG_ITS ---
Patient Problems: Active and Suspected Problems (Last Reviewed 02/20/19 @ 20:33 by Pricila Olson) Raynaud's disease with gangrene (Acute) Subjective: tolerating diet, no further blood per stoma - Physical Exam General: Alert, Oriented x3 Abdomen: Bowel Sounds Present, Soft, - - stoma site clean with no signs of bleeding Vital Signs Temp Pulse Resp BP Pulse Ox 98.5 F 68 18 98/64 98 03/05/19 14:04 03/05/19 14:04 03/05/19 14:04 03/05/19 14:04 03/05/19 14:04 Oxygen Flow Rate (L/min) 2 Oxygen Delivery Method Nasal Cannula Weight: 86.2 kg Body Mass Index (BMI) 30.7 Finger Stick Blood Glucose 118 Intake and Output for Last 24 Hours 03/03/19 03/04/19 03/05/19 23:59 23:59 23:59 Intake Total 1750 / 1750 923 / 1419.3 1274.9 / 1274.9 Output Total 1150 / 1150 3800 / 4050 550 / 550 Balance 600 / 600 -2877 / -2630.7 724.9 / 724.9 Microbiology Past 72 Hours 03/03/19 19:10 Enteric Bacteriology - Final Stool 03/03/19 19:10 C. difficile DNA Amplification - Final Stool 03/03/19 19:10 Stool Lactoferrin - Final Stool 03/03/19 06:50 Stool Occult Blood (SCARLET) - Final Stool Occult Blood Positive Laboratory Tests Past 24 Hrs 03/05/19 03/05/19 05:10 05:10 WBC 5.3 RBC 2.50 L Hgb 8.5 L Hct 27.9 L MCV 111.6 H MCH 34.0 H MCHC 30.5 L RDW Std Deviation 69.1 H RDW Coeff of Scott 17.1 H Plt Count 111 L MPV 9.8 Immature Gran % (Auto) 0.400 Neut % (Auto) 70.9 H Lymph % (Auto) 16.5 L [place] % (Auto) 4.8 Eos % (Auto) 6.8 H Baso % (Auto) 0.6 Absolute Neuts (auto) 3.7 Absolute Lymphs (auto) 0.87 Nucleated RBC % 0 Differential Comment SCANNED Polychromasia 2+ Hypochromasia 1+ Anisocytosis 2+ Microcytosis 1+ Sodium 140 Potassium 5.0 Chloride 103 Carbon Dioxide 29.0 Anion Gap 8 BUN 35 H Creatinine 5.09 H Estim Creat Clear Calc 13.07 Est GFR (MDRD) Af Amer 12 L Est GFR (MDRD) Non-Af 10 L BUN/Creatinine Ratio 6.9 L Glucose 102 Calcium 8.6 Magnesium 2.4 POC Glucose 03/05/19 03/05/19 03/05/19 11:21 07:54 06:35 POC Glucose 73 136 H 114 H 03/05/19 00:00 POC Glucose 155 H Medical Necessity - Tobacco Use Smoking Status: Former smoker Tobacco Use: Non-smoker Assessment/Plan All Active Problems (Last Reviewed 02/20/19 @ 20:33 by Pricila Olson) Raynaud's disease with gangrene (Acute) Osteomyelitis (Ruled-out) GI bleed (Acute) Metabolic alkalosis (Acute) Chest pain (Resolved) Hypotension (Resolved) blood per stoma bag, epigastric abdominal pain. Multiple medical comorbidities, Upper and lower endoscopy was performed. No signs of acute or recent bleeding. She was noted to have mild gastritis and moderate duodenitis. She has granula tion tissue at her stoma margin which may have been the source of bleeding. The proximal colon from the stoma to the terminal ileum was unremarkabel. The colon distal to the stoma also appeared healthy without signs of blood. OK with restarting a renal diet Hgb was stable overnight with no further bleeding
--- NOTE | 2019-03-06 14:55 | CASEMGMT ---
Case Management DC F/u Call: DC Date: 03/05/19 DC Diagnosis: Raynaud's disease with gangrene (Acute), GI bleed (Acute), C. difficile colitis (Suspected) Dc Disposition: Home LACE/STRATA: 04/11 Attempted to call patient number listed in demographics, phone number has been disconnected. Prachi Atkins RNCM
== END 2019-03-05 14:19 | disposition home or self-care (01) | DRG 391 ==
LOC: ED 07:10 → MS3 08:52
PROVIDERS: Anesthesiology; Surgery; Admitting Provider Family Medicine; Emergency Provider Emergency Medicine; Family Provider Family Medicine; PCP Family Medicine; Visit Provider Internal Medicine
PROC: 0DJD8ZZ Inspection of Lower Intestinal Tract, Via Natural or Artificial Opening Endoscopic (ICD-10-PCS; CPT 45378; principal; 2019-03-04 12:25)
DX: K29.90 Gastroduodenitis, unspecified, without bleeding (principal); N18.6 End stage renal disease; I50.22 Chronic systolic (congestive) heart failure; I13.2 Hypertensive heart and chronic kidney disease with heart failure and with stage 5 chronic kidney disease, or end stage renal disease; I73.01 Raynaud's syndrome with gangrene; K92.2 Gastrointestinal hemorrhage, unspecified; I25.10 Atherosclerotic heart disease of native coronary artery without angina pectoris; E11.22 Type 2 diabetes mellitus with diabetic chronic kidney disease; D63.1 Anemia in chronic kidney disease; E78.5 Hyperlipidemia, unspecified; E66.9 Obesity, unspecified; Z99.2 Dependence on renal dialysis; Z93.3 Colostomy status; Z95.5 Presence of coronary angioplasty implant and graft; Z87.74 Personal history of (corrected) congenital malformations of heart and circulatory system; Z79.4 Long term (current) use of insulin; Z68.30 Body mass index [BMI] 30.0-30.9, adult; I25.5 Ischemic cardiomyopathy; F17.200 Nicotine dependence, unspecified, uncomplicated; F41.8 Other specified anxiety disorders; K21.9 Gastro-esophageal reflux disease without esophagitis; I73.9 Peripheral vascular disease, unspecified; J44.9 Chronic obstructive pulmonary disease, unspecified; G47.33 Obstructive sleep apnea (adult) (pediatric); K31.84 Gastroparesis; E11.43 Type 2 diabetes mellitus with diabetic autonomic (poly)neuropathy
CPT/HCPCS: 36415; 74176; 80048; 80053; 80076; 80202; 81001; 82274; 82962; 83630; 83690; 83735; 85025; 85610; 85730; 87177; 87209; 87493; 87506; 88305; 88342; 90937; 97161; 97165; 97803; 99285; 99406; J7050; A4216; G0257; J2405

== ENCOUNTER 2019-03-09 23:46 | Emergency (ER) | payer MEDICARE, SELFPAY ==
[2019-03-04 09:47] VITALS: BMI 30.7
[2019-03-09 23:47] VITALS: BP 138/62; PULSE 75; RESP 16; TEMP 36.7; O2SAT 98; BMI 32.0
--- NOTE | 2019-03-10 00:30 | RAD_ITS ---
STUDY: X-RAY RIGHT FOOT, INFECTION IN THE RIGHT GREAT TOE FOR ONE WEEK TOE REASON FOR EXAM: Female, 43 years old. Infection of right great toe for one week TECHNIQUE: 3 view(s) of the toe were obtained. COMPARISON: None. FINDINGS: Normal visualized metatarsus. Normal metatarsophalangeal (M.T.P) joint. Normal interphalangeal joints. Normal phalanges and interphalangeal joints. The soft tissue structures are unremarkable. No acute fracture or osseous erosion. RAD/Toe(s) Min 2 Views IMPRESSION: Negative x-ray of the toe. Electronically Signed: Neo Hyatt, at 1:34 EDT Tel , Service support ,
--- NOTE | 2019-03-10 00:30 | RAD_ITS ---
STUDY: X-RAY - RIGHT HAND REASON FOR EXAM: Female, 43 years old. Gangrene at the tip of ring finger. TECHNIQUE: 3 view(s) of the hand. COMPARISON: None. FINDINGS: Normal radiocarpal articulation. Normal distal radioulnar joint. Normal visualized carpal bones. Normal carpal articulations Normal carpometacarpal articulation of the thumb. Normal second through fifth carpometacarpal joints. Normal metacarpi. Normal metacarpophalangeal joint of the thumb. Normal interphalangeal joint of the thumb. Normal proximal and distal phalanges of the thumb. Normal metacarpophalangeal joints of the second through fifth fingers. Normal proximal and distal interphalangeal joints of the second through fifth fingers. Normal phalanges of the second through fifth fingers. The soft tissue structures are unremarkable. RAD/Hand Min 3 Views IMPRESSION: Negative x-ray examination of the hand. No acute fracture or osseous erosion. Electronically Signed: Neo Hyatt, at 1:32 EDT Tel , Service support ,
--- NOTE | 2019-03-10 00:32 | ED.VIS.GEN ---
History of Present Illness Chief Complaint: Upper Extremity Injury Detail of Chief Complaint: right ring finger pain Informant: Patient Onset: Weeks - 1 Context: Gradual Onset Timing: Continuous Quality: ache Location: R ring finger Current Severity: Severe Maximum Severity: Severe Worsened by: moving, palpation Relieved by: nothing Associated Symptoms: swelling and redness today Narrative: For the past week or so, her right ring finger has been black distally, and sore. Today she noticed to be swelling and redness and the pain became severe. She has a history of peripheral vascular disease and told that she has poor circulation in her left lower extremity. She has a stent in her heart. Also for the past week or so she has had a sore area with some clear discharge at the tip of her right great toe. She denies any injury there. She denies any fevers or systemic symptoms. She also is diabetic with neuropathy and has end-stage renal disease. She states her ring finger is numb and painful at the same time. Also since having a fingerstick glucose check on her right index finger, that is been sore and turning dark-colored as well. - Past Medical History (1) Raynaud's disease with gangrene Status: Chronic (2) Acute on chronic systolic (congestive) heart failure Status: Chronic (3) Anemia due to chronic kidney disease Status: Chronic (4) Anxiety Status: Chronic (5) CAD (coronary artery disease) Status: Chronic (6) COPD (chronic obstructive pulmonary disease) Status: Chronic (7) Decubitus ulcer, stage III Status: Chronic (8) Depression Status: Chronic (9) ESRD (end stage renal disease) on dialysis Status: Chronic (10) Gastroparesis Status: Chronic (11) HTN (hypertension) Status: Chronic (12) GABRIEL (obstructive sleep apnea) Status: Chronic (13) Peripheral arterial disease Status: Chronic (14) S/P repair of PDA (patent ductus arteriosus) Status: Chronic Comment: At young age (13) C. difficile colitis Status: Suspected (16) Osteomyelitis Status: Ruled-out Past Medical History - Allergies and Home Meds Allergies/Adverse Reactions: Allergies latex Allergy (Verified 03/10/19 00:09) Rash prochlorperazine [From Compazine] Allergy (Verified 03/10/19 00:09) Unknown levofloxacin [From Levaquin] Adverse Reaction (Verified 03/10/19 00:09) PT CAN'T REMEMBER PT CAN'T REMEMBER metoclopramide HCl [From Reglan] Adverse Reaction (Verified 03/10/19 00:09) Nausea NSAIDS (Non-Steroidal Anti-Inflamma Adverse Reaction (Verified 03/10/19 00:09) kidney function oxycodone HCl [From Percocet] Adverse Reaction (Verified 03/10/19 00:09) HALLUCINATIONS Primary Care Physician: Christopher Foy MD [Primary Care Provider] - Surgical History: angioplasty, appendectomy, hysterectomy, - Lives: With Family Smoking Status: Current every day smoker - Family History Maternal Family History: Family History (This Medical Record has been edited. Action required.) Father Diabetes Mother CVA (cerebral vascular accident) Hypertension Diabetes Cancer Family History: Reports: Cancer, COPD, Diabetes, Hypertension, Renal Disease, Stroke Additional Family History: Father also has diabetes Paternal Family History: Family History (This Medical Record has been edited. Action required.) Father Diabetes Mother CVA (cerebral vascular accident) Hypertension Diabetes Cancer Family History: Reports: Diabetes, Heart Disease Sibling Family History: Family History (This Medical Record has been edited. Action required.) Father Diabetes Mother CVA (cerebral vascular accident) Hypertension Diabetes Cancer Family History: Reports: Cancer, Diabetes Review of Systems General: Denies: Chills, Fever, Sweats Eyes: Denies: Visual changes - bilaterally, Diplopia ENT: Denies: Rhinorrhea, Sore throat Cardiovascular: Denies: Chest pain, Palpitations Respiratory: Denies: Dyspnea, Cough, Dyspnea on exertion Gastrointestinal: Denies: Abdominal pain, Nausea, Vomiting, Diarrhea, Melena, Hematochezia Genitourinary: Denies: Dysuria, Hematuria, Frequency Musculoskeletal: Reports: Extremity Pain. Denies: Back pain Skin: Reports: Wounds. Denies: Rash Neurological: Reports: Numbness. Denies: Headache, Weakness Physical Exam Vital Signs/Narrative: Vital Signs Temp Pulse Resp BP Pulse Ox 03/09/19 23:47 98.1 F 75 16 138/62 H 98 Inital Vital Signs reviewed: Yes General: Well nourished, Well developed, No Acute Distress Head: Normocephalic, Atraumatic Eyes: Perrl, EOMI Neck: Supple, Nontender Cardiovascular: Regular rate, Regular rhythm, No murmurs Respiratory: No distress, CTA bilaterally, Chest nontender Extremities: Tenderness - Right great toe and right ring finger diffusely., - - Brisk 2-second cap refill both feet distal aspect of toes. 2+/4 left radial pulse. No palpable right radial, or dorsalis pedis on either side or posterior tibial on either side. Skin: - - Amanda gangrene at the tip of the right ring finger, no nail or nailbed involvement. Well-circumscribed borders without bleeding or discharge. Proximal to this, the entire digit is erythematous and mildly swollen compared with the nearby ones, to about the PIPJ. There is a small dry dark pinpoint sized wound at the pad of the right index finger, this is mildly tender, but there is no well-circumscribed gangrenous area like with the ring finger. No sign of any erythema there. On the right great toe, there is a small wound at the tip beyond the nail that has some clear liquid discharge and is darkened but again no well-circumscribed gangrene. Neurological: Alert, Oriented x3, Cranial nerves II-XII grossly intact, Normal Strength, Normal Sensation Psychological: Tearful Diagnostic/Tx/Re-eval Impressions Hand X-Ray 03/10/19 00:30 IMPRESSION: Negative x-ray examination of the hand. No acute fracture or osseous erosion. Electronically Signed: Neo Hyatt, at 1:32 EDT Tel , Service support , Toe X-Ray 03/10/19 00:30 IMPRESSION: Negative x-ray of the toe. Electronically Signed: Neo Hyatt, at 1:34 EDT Tel , Service support , 03/10/19 00:30 Hand Min 3 Views [RAD] Stat Toe(s) Min 2 Views [RAD] Stat Laboratory Results 03/10/19 03/10/19 03/10/19 00:45 00:45 00:45 WBC 5.4 RBC 2.61 L Hgb 8.9 L Hct 29.1 L MCV 111.5 H MCH 34.1 H MCHC 30.6 L RDW Std Deviation 69.9 H RDW Coeff of Scott 16.9 H Plt Count 110 L MPV 9.4 Immature Gran % (Auto) 0.600 Neut % (Auto) 74.6 H Lymph % (Auto) 13.8 L [place] % (Auto) 5.8 Eos % (Auto) 4.8 Baso % (Auto) 0.4 Absolute Neuts (auto) 4.0 Absolute Lymphs (auto) 0.74 L Nucleated RBC % 0.4 Differential Comment SCANNED Hypochromasia 2+ Macrocytosis 3+ APTT 29.9 Sodium 138 Potassium 5.8 H Chloride 99 Carbon Dioxide 32.0 Anion Gap 7 BUN 42 H Creatinine 6.46 H Estim Creat Clear Calc 10.30 Est GFR (MDRD) Af Amer 9 L Est GFR (MDRD) Non-Af 7 L BUN/Creatinine Ratio 6.5 L Glucose 167 H Calcium 9.3 - Rhythm Strip Rhythm Strip: Sinus Rhythm Rate: 73 Ectopy: None - EKG Initial EKG Interpretation: Sinus Rhythm, No Acute Injury Pattern, Non-Specific ST Changes - no peaked T waves. QRS narrow. nml NV. - Medical Decision Making Patient provides more history later that she has been on clindamycin for a couple weeks and her doctor just extended it a couple days ago. She has no leukocytosis. She has stable chronic anemia, and incidentally she is mildly hyperkalemic at 5.8. She is clinically and hemodynamically stable and she is has no EKG findings of hyperkalemia. My concern is that her finger is acutely or subacutely ischemic. There is no one available at this hospital for vascular surgery. The surgeon who performed her left AV fistula is Dr. Foley here, who does some vascular, but he is not available this weekend. I do not have the ability at this time to perform vascular ultrasound studies or digital waveforms to evaluate for ischemia/blockage. She does not have a pulse in her right radial. I discussed that with her. She states she was told that by somebody else within the past week or 2 but that is new since then. This makes it difficult to verify presence of blood flow, her cap refill is delayed throughout all fingers. She has numbness in multiple fingers and good feeling in others. This is the only one that appears it could be acutely ischemic. Therefore after talking with the patient extensively, she agreed to be transferred for further evaluation. She preferred to go to [place] since she had been there recently and saw their vascular specialist. Dr. Kirkland for vascular surgery was apparently exchange consultant, so I thought it would be reasonable to speak with him first when the transfer center asked me. However, he reportedly refuses to speak with me about this because he knows the patient from several weeks ago and said he has no reason to accept her. I am not sure if there is something interventional indicated, or simply anticoagulation, or something else. I spoke with the hospitalist Dr. Jewell, discussing this with him, he agrees to accept patient for further evaluation. ED Disposition - Plan for ED Patient: Disposition: [facility] Diagnosis: Pain in finger of right hand, Gangrene of finger of right hand, ESRD (end stage renal disease) on dialysis, Hyperkalemia Referrals: Christopher Foy MD [Primary Care Provider] -
[2019-03-10] MEDS: Morphine 4 MG/ML Syringe IV ×2 (00:54→04:15)
[2019-03-10 01:00] VITALS: BP 121/53; PULSE 71; RESP 16; TEMP 37; O2SAT 99
[2019-03-10] MEDS: Cefazolin 1 GM/50 ML BAG IV (01:02)
[2019-03-10 01:04] LABS: Absolute Lymphocyte Count 0.74 X10^3/uL (0.83-4.51); Basophil# 0.02 X10^3/uL; Basophil% 0.4 % (0-1); Eosinophil# 0.26 X10^3/uL; Eosinophils% 4.8 % (0-5); Hematocrit 29.1 % (37-47); Hemoglobin 8.9 g/dL (12.0-15.0); Lymphocyte # 0.74 X10^3/ul (4.0); Lymphocyte % 13.8 % (19-41); Mean Corp Hgb Conc 30.6 g/dL (32-36); Mean Corpuscular Hgb 34.1 pg (27.0-32.0); Mean Corpuscular Volume 111.5 fL (81-99); Mean Platelet Vol. 9.4 fl (6.2-12.0); Monocyte# 0.31 X10^3/uL; Monocyte% 5.8 % (0-10); NRBC Flagged by Analyzer 0.4 % (0-5); Neutrophil # 4.01 X10^3/uL (2.7-7.7); Neutrophil % 74.6 % (47-70); POSITIVE MORPHOLOGY YES; Platelet Count 110 K/mm3 (150-450); RBC Distribution Width CV 16.9 % (11.6-14.6); RBC Distribution Width SD 69.9 fl (35.1-43.9); Red Blood Count 2.61 M/mm3 (4.2-5.4); White Blood Count 5.4 K/mm3 (4.4-11.0)
[2019-03-10 01:05] LABS: Differential Indicated SCAN CRITERIA MET
[2019-03-10 01:13] LABS: Partial Thromboplast Time 29.9 Seconds (24.1-36.2)
[2019-03-10 01:17] LABS: Anion Gap 7 (5-15); BUN 42 mg/dL (7-18); BUN/Creat Ratio 6.5 RATIO (10-20); Calcium,Total 9.3 mg/dL (8.5-10.1); Chloride 99 mmol/L (98-107); Creatinine, Serum 6.46 mg/dL (0.55-1.02); EST Glomerular Filtration Rate 7 mL/min (>60); Est Glom Filt Rate - Afr Amer 9 mL/min (>60); Glucose 167 mg/dL (74-106); Potassium 5.8 mmol/L (3.5-5.1); Sodium Level 138 mmol/L (136-145)
[2019-03-10 01:26] LABS: Differential Comment SCANNED; Hypochromasia 2+; Macrocytosis 3+
[2019-03-10 02:10] VITALS: BP 127/82; PULSE 77; RESP 15; TEMP 36.9; O2SAT 93
--- NOTE | 2019-03-10 03:44 | EKG12_ITS ---
Test Reason : HYPERKALEMIC Blood Pressure : / mmHG Vent. Rate : 073 BPM Atrial Rate : 073 BPM P-R Int : 136 ms QRS Dur : 088 ms QT Int : 432 ms P-R-T Axes : 042 062 149 degrees QTc Int : 475 ms Normal sinus rhythm Cannot rule out Anterior infarct , age undetermined Abnormal ECG Confirmed by DIVINA BEASLEY, SUSI ([id number]), medical transcription editor LISBETH KIDD ([id number]) on 03/12/2019 1:25:42 PM Referred By: SHAHLA Confirmed By:SUSI MURCIA MD
[2019-03-10 03:47] VITALS: BP 126/54; PULSE 72; RESP 15; TEMP 37; O2SAT 93
[2019-03-10 04:06] VITALS: BP 126/54; PULSE 72; RESP 15; O2SAT 93
[2019-03-10] MEDS: Enoxaparin 100 MG/ML Syringe 90 MG SC (04:38)
== END 2019-03-10 05:00 | disposition short-term general hospital (02) ==
PROVIDERS: Emergency Provider Emergency Medicine; Family Provider Family Medicine; PCP Family Medicine
DX: M79.644 Pain in right finger(s) (principal); E11.52 Type 2 diabetes mellitus with diabetic peripheral angiopathy with gangrene; I96 Gangrene, not elsewhere classified; E87.5 Hyperkalemia; E11.22 Type 2 diabetes mellitus with diabetic chronic kidney disease; I13.2 Hypertensive heart and chronic kidney disease with heart failure and with stage 5 chronic kidney disease, or end stage renal disease; N18.6 End stage renal disease; I50.23 Acute on chronic systolic (congestive) heart failure; Z99.2 Dependence on renal dialysis; D63.1 Anemia in chronic kidney disease; S61.200A Unspecified open wound of right index finger without damage to nail, initial encounter; S91.101A Unspecified open wound of right great toe without damage to nail, initial encounter; X58.XXXA Exposure to other specified factors, initial encounter; Y93.9 Activity, unspecified; Y92.9 Unspecified place or not applicable; F41.9 Anxiety disorder, unspecified; J44.9 Chronic obstructive pulmonary disease, unspecified; I25.10 Atherosclerotic heart disease of native coronary artery without angina pectoris; F32.9 Major depressive disorder, single episode, unspecified; E11.43 Type 2 diabetes mellitus with diabetic autonomic (poly)neuropathy; K31.84 Gastroparesis; G47.33 Obstructive sleep apnea (adult) (pediatric); E11.51 Type 2 diabetes mellitus with diabetic peripheral angiopathy without gangrene; L89.93 Pressure ulcer of unspecified site, stage 3; E11.40 Type 2 diabetes mellitus with diabetic neuropathy, unspecified; Z95.5 Presence of coronary angioplasty implant and graft; Z79.82 Long term (current) use of aspirin; Z79.4 Long term (current) use of insulin; Z79.02 Long term (current) use of antithrombotics/antiplatelets; Z79.899 Other long term (current) drug therapy; F17.200 Nicotine dependence, unspecified, uncomplicated
CPT/HCPCS: 73130; 73660; 80048; 85025; 85730; 93005; 96361; 96365; 96372; 96374; 96375; 96376; 99285; J7040; J7050

== ENCOUNTER 2019-03-19 21:58 | Emergency (ER) | payer MEDICARE, SELFPAY ==
[2019-03-19 22:00] VITALS: BP 85/40; PULSE 90; RESP 20; TEMP 37.1; O2SAT 93; BMI 32.6
[2019-03-19 22:21] VITALS: TEMP 37.1
[2019-03-19 22:27] VITALS: TEMP 36.9
--- NOTE | 2019-03-19 22:27 | EKG12_ITS ---
Test Reason : CELLULITIS Blood Pressure : / mmHG Vent. Rate : 089 BPM Atrial Rate : 089 BPM P-R Int : 126 ms QRS Dur : 094 ms QT Int : 384 ms P-R-T Axes : 051 070 249 degrees QTc Int : 467 ms Normal sinus rhythm ST & T wave abnormality, consider inferior ischemia Abnormal ECG Confirmed by WM UNDERWOOD ([id number]), metropolitan editor KEVIN WALTERS ([id number]) on 03/26/2019 10:01:35 AM Referred By: SHAHIDA Confirmed By:WM UNDERWOOD
--- NOTE | 2019-03-19 22:28 | RAD_ITS ---
STUDY: X-RAY - RIGHT HAND REASON FOR EXAM: Female, 43 years old. Right finger gangrene TECHNIQUE: 3 view(s) of the hand. COMPARISON: March 10, 2019 and x-ray FINDINGS: Normal radiocarpal articulation. Normal distal radioulnar joint. Normal visualized carpal bones. Normal carpal articulations Normal carpometacarpal articulation of the thumb. Normal second through fifth carpometacarpal joints. Normal metacarpi. Normal metacarpophalangeal joint of the thumb. Normal interphalangeal joint of the thumb. Normal proximal and distal phalanges of the thumb. Normal metacarpophalangeal joints of the second through fifth fingers. Normal proximal and distal interphalangeal joints of the second through fifth fingers. Normal phalanges of the second through fifth fingers. There is a soft tissue defect probable nailbed erosion of the distal phalanx of the fourth digit. There is no significant bony erosion. There are dense vascular calcifications seen. RAD/Hand Min 3 Views IMPRESSION: Soft tissue edema especially of the nailbed. Possible erosion of the nailbed without visualized bony erosion. Electronically Signed: Olena Pace MD at 23:24 EDT Tel , Service support ,
--- NOTE | 2019-03-19 22:29 | ED.DCSUM_ITS ---
History of Present Illness Chief Complaint: Cellulitis Narrative: Patient is a 43-year-old female with extensive medical history who presents with wounds and pain of her right second and fourth fingers as well as right first toe. She has a history of diverting colostomy due to sacral wound. She has a history of coronary disease with multiple stents. She was recently hospitalized for dark tarry stools and underwent upper and lower endoscopies. At that time she was noted to be developing gangrene of her right fourth finger. She was seen in the emergency department since that time with worsening pain and redness. ER physician at that time was unable to palpate a radial pulse although the patient states she had been told this within the last couple of weeks. She was transferred to [place] for vascular surgery consultation. She was treated with IV antibiotics and underwent vascular studies of her extremi ties and was told that she had calcified veins in her legs and arm. She was discharged on amoxicillin and doxycycline. In the last couple of days she is also begun to develop a wound on the tip of her right index finger and right first toe as well as redness and pain of the right hand and right foot. She reports chills. She reports nausea and vomiting beginning the last few days. Past Medical History - Allergies and Home Meds Allergies/Adverse Reactions: Allergies latex Allergy (Verified 03/19/19 21:59) Rash prochlorperazine [From Compazine] Allergy (Verified 03/19/19 21:59) Unknown levofloxacin [From Levaquin] Adverse Reaction (Verified 03/19/19 21:59) PT CAN'T REMEMBER PT CAN'T REMEMBER metoclopramide HCl [From Reglan] Adverse Reaction (Verified 03/19/19 21:59) Nausea NSAIDS (Non-Steroidal Anti-Inflamma Adverse Reaction (Verified 03/19/19 21:59) kidney function oxycodone HCl [From Percocet] Adverse Reaction (Verified 03/19/19 21:59) HALLUCINATIONS Primary Care Physician: Christopher Foy MD [Primary Care Provider] - Past Medical History: - - Diabetes, hypertension, hyperlipidemia, coronary disease, peripheral vascular disease, end-stage renal disease Surgical History: angioplasty, appendectomy, hysterectomy, - Smoking Status: Former smoker - Family History Maternal Family History: Family History (This Medical Record has been edited. Action required.) Father Diabetes Mother CVA (cerebral vascular accident) Hypertension Diabetes Cancer Family History: Reports: Cancer, COPD, Diabetes, Hypertension, Renal Disease, Stroke Additional Family History: Father also has diabetes Paternal Family History: Family History (This Medical Record has been edited. Action required.) Father Diabetes Mother CVA (cerebral vascular accident) Hypertension Diabetes Cancer Family History: Reports: Diabetes, Heart Disease Sibling Family History: Family History (This Medical Record has been edited. Action required.) Father Diabetes Mother CVA (cerebral vascular accident) Hypertension Diabetes Cancer Family History: Reports: Cancer, Diabetes Review of Systems All systems negative except as indicated General: Reports: Chills Cardiovascular: Denies: Chest pain Respiratory: Denies: Dyspnea Gastrointestinal: Reports: Nausea, Vomiting. Denies: Abdominal pain Skin: Reports: Wounds Physical Exam Vital Signs/Narrative: Vital Signs Temp Pulse Resp BP Pulse Ox 03/19/19 22:21 98.8 F 03/19/19 22:00 98.8 F 90 20 H 85/40 L 93 Inital Vital Signs reviewed: Yes General: Well developed, No Acute Distress Eyes: EOMI ENT: Moist mucous membranes Neck: Supple Cardiovascular: Regular rate, Regular rhythm, - - Easily palpable left radial pulse, positive thrill and left AV fistula, positive Doppler flow to right radial and bilateral dorsalis pedis pulses Respiratory: No distress, CTA bilaterally Abdomen: Soft, Nontender, Nondistended, - - Ostomy noted Extremities: - - Patient has dry gangrene circumferentially of the distal right fourth finger there is a small area of necrosis at the tip of the right index finger she has erythema at the base of necrosis of the right ring finger there is erythema of the right foot mostly at the right first toe there is also an area of necrosis on the tip of the right first toe patient has erythema of the distal left foot as well although I do not appreciate any gangrene or necrosis on the left foot Skin: - - Wounds as above Neurological: Alert Diagnostic/Tx/Re-eval Impressions Hand X-Ray 03/19/19 22:28 IMPRESSION: Soft tissue edema especially of the nailbed. Possible erosion of the nailbed without visualized bony erosion. Electronically Signed: Olena Pace MD at 23:24 EDT Tel , Service support , Foot X-Ray 03/19/19 23:00 IMPRESSION: Greater irregularity, persistent slightly greater right irregular and/or erosive appearance of the distal phalanx on the lateral view of the first digit and prior studies. Recommend consideration for follow-up MRI if clinically appropriate. Electronically Signed: Olena Pace MD at 23:21 EDT Tel , Service support , ADDENDUM: 03/19/19 2333 IMPRESSION: Greater irregularity, persistent slightly greater right irregular and/or erosive appearance of the distal phalanx on the lateral view of the first digit and prior studies. Recommend consideration for follow-up MRI if clinically appropriate. N.B. : The above information has been verbally conveyed by Olena Pace MD to Adan Salazar MD, on 03/19/2019 23:26:24 (ET). Electronically Signed: Olena Pace MD at 23:21 EDT Tel , Service support , Chest X-Ray 03/19/19 23:45 IMPRESSION: Worsening bilateral pulmonary edema and increasing pleural effusions suggestive of CHF. at 0014 Reported and signed by: Alvin Valadez MD Electronically Signed: Alvin Valadez MD at 0:13 EDT Tel , Service support , 03/19/19 22:28 Hand Min 3 Views [RAD] Stat 03/19/19 23:00 Foot min 3 Views [RAD] Stat 03/19/19 23:45 CXR [Chest 1 View (Portable)] [RAD] Stat Laboratory Results 03/19/19 03/19/19 03/19/19 22:55 22:55 22:55 WBC 7.4 RBC 2.74 L Hgb 9.2 L Hct 31.3 L MCV 114.2 H MCH 33.6 H MCHC 29.4 L RDW Std Deviation 78.3 H RDW Coeff of Scott 19.2 H Plt Count 113 L MPV 10.1 Immature Gran % (Auto) 0.700 Neut % (Auto) 82.8 H Lymph % (Auto) 9.1 L [place] % (Auto) 4.1 Eos % (Auto) 3.0 Baso % (Auto) 0.3 Absolute Neuts (auto) 6.1 Absolute Lymphs (auto) 0.67 L Nucleated RBC % 0.4 Differential Comment SCANNED Polychromasia 1+ Anisocytosis 1+ PT 15.7 H INR 1.3 Sodium 142 Potassium 3.8 Chloride 100 Carbon Dioxide 31.0 Anion Gap 11 BUN 35 H Creatinine 6.00 H Estim Creat Clear Calc 11.08 Est GFR (MDRD) Af Amer 10 L Est GFR (MDRD) Non-Af 8 L BUN/Creatinine Ratio 5.8 L Glucose 192 H Lactic Acid Calcium 9.5 Total Bilirubin 0.70 AST 13 L ALT 19 Alkaline Phosphatase 117 Troponin I 0.019 Total Protein 7.8 Albumin 3.0 L Globulin 4.8 H Albumin/Globulin Ratio 0.6 L 03/19/19 22:55 WBC RBC Hgb Hct MCV MCH MCHC RDW Std Deviation RDW Coeff of Scott Plt Count MPV Immature Gran % (Auto) Neut % (Auto) Lymph % (Auto) [place] % (Auto) Eos % (Auto) Baso % (Auto) Absolute Neuts (auto) Absolute Lymphs (auto) Nucleated RBC % Differential Comment Polychromasia Anisocytosis PT INR Sodium Potassium Chloride Carbon Dioxide Anion Gap BUN Creatinine Estim Creat Clear Calc Est GFR (MDRD) Af Amer Est GFR (MDRD) Non-Af BUN/Creatinine Ratio Glucose Lactic Acid 2.1 H Calcium Total Bilirubin AST ALT Alkaline Phosphatase Troponin I Total Protein Albumin Globulin Albumin/Globulin Ratio - EKG Initial EKG Interpretation: Sinus Rhythm, - - ST and T wave abnormality in the inferior leads with slight ST depression as well as T wave inversions. - Medical Decision Making Repeat blood pressure was 141/63. Given that she is end-stage renal disease held on IV fluids. Patient was given IV vancomycin. Her symptoms were treated with IV morphine and Zofran. Laboratory evaluation as above. There is minimal elevation of lactic acid. Her foot x-ray shows what appears to be worsening bony erosion concerning for osteomyelitis and radiology did recommend further evaluation likely with MRI imaging. While here the patient also began to complain of shortness of breath. She is on 2 L oxygen by nasal cannula at home for COPD. She was increased to 4 and oxygen saturations were 90 to 92% on my reevaluation. Chest x-ray was obtained which shows findings consistent with CHF. She is due for dialysis today. On reevaluation she is improved she is in no respiratory distress so I believe we can just wait for dialysis as an inpatient. I spoke to the hospitalist here who also saw the patient. We feel it would be best if she was at a facility with vascular surgery available giving her worsening symptoms and worsening evidence of necrosis with known vascular disease. Patient does not want to be transferred back to [place]. Patient and family requested transfer to [facility]. ED Disposition - Plan for ED Patient: Disposition: [facility] Diagnosis: Finger necrosis, Toe necrosis, Osteomyelitis, CHF (congestive heart failure) Referrals: Christopher Foy MD [Primary Care Provider] -
[2019-03-19] MEDS: Ondansetron 4 MG/2 ML Vial IV (22:46)
[2019-03-19] MEDS: Morphine 4 MG/ML Syringe IV (22:46)
--- NOTE | 2019-03-19 23:00 | RAD_ITS ---
We are attempting to reach an attending provider to discuss findings. An addendum with communication details will be sent when the communication is complete. STUDY: X-RAY - RIGHT FOOT CLINICAL: Female, 43 years old. Gangrene TECHNIQUE: 3 view(s) of the foot. COMPARISON: March 10, 2019, February 27, 2019 FINDINGS: Normal talus, calcaneus, and tarsal bones. Normal visualized subtalar, talonavicular, calcaneocuboid, tarsal and tarsometatarsal articulations. Normal metatarsi. Normal metatarsophalangeal joint of the great toe. Normal tibial and fibular sesamoid bones. Normal interphalangeal joint of the great toe. Normal phalanges of the great toe. Normal second through fifth metatarsophalangeal joints. Normal interphalangeal joints and phalanges of the lesser toes. Visualized soft tissue edema. There are visualized small vessel calcifications. Since prior study there is an erosive appearance of the tip of the distal phalanx greater than prior study. This is seen on the lateral view. RAD/Foot min 3 Views IMPRESSION: Greater irregularity, persistent slightly greater right irregular and/or erosive appearance of the distal phalanx on the lateral view of the first digit and prior studies. Recommend consideration for follow-up MRI if clinically appropriate. Electronically Signed: Olena Pace MD at 23:21 EDT Tel , Service support ,
[2019-03-19 23:02] VITALS: BP 124/65; PULSE 74; RESP 16; TEMP 36.9; O2SAT 91
[2019-03-19 23:06] LABS: Absolute Lymphocyte Count 0.67 X10^3/uL (0.83-4.51); Absolute Neutrophil Count 6.1 X10^3/uL (2.0-7.7); Basophil# 0.02 X10^3/uL; Basophil% 0.3 % (0-1); Eosinophil# 0.22 X10^3/uL; Hematocrit 31.3 % (37-47); Hemoglobin 9.2 g/dL (12.0-15.0); Lymphocyte # 0.67 X10^3/ul (4.0); Lymphocyte % 9.1 % (19-41); Mean Corp Hgb Conc 29.4 g/dL (32-36); Mean Corpuscular Hgb 33.6 pg (27.0-32.0); Mean Corpuscular Volume 114.2 fL (81-99); Mean Platelet Vol. 10.1 fl (6.2-12.0); Monocyte% 4.1 % (0-10); NRBC Flagged by Analyzer 0.4 % (0-5); Neutrophil # 6.12 X10^3/uL (2.7-7.7); Neutrophil % 82.8 % (47-70); POSITIVE MORPHOLOGY YES; Platelet Count 113 K/mm3 (150-450); RBC Distribution Width CV 19.2 % (11.6-14.6); RBC Distribution Width SD 78.3 fl (35.1-43.9); Red Blood Count 2.74 M/mm3 (4.2-5.4); White Blood Count 7.4 K/mm3 (4.4-11.0)
[2019-03-19 23:07] LABS: Differential Indicated SCAN CRITERIA MET
[2019-03-19 23:14] LABS: International Normalized Ratio 1.3; Prothrombin Time (Protime)PT. 15.7 SECONDS (11.7-14.9)
[2019-03-19 23:27] LABS: Anisocytosis 1+; Differential Comment SCANNED
[2019-03-19 23:28] LABS: ALB/GLOB Ratio 0.6 RATIO (0.9-2.4); AST(SGOT) 13 U/L (15-37); Alanine Aminotransfer ALT/SGPT 19 U/L (13-56); Alkaline Phosphatase 117 U/L (45-117); Anion Gap 11 (5-15); BUN 35 mg/dL (7-18); BUN/Creat Ratio 5.8 RATIO (10-20); Calcium,Total 9.5 mg/dL (8.5-10.1); Chloride 100 mmol/L (98-107); EST Glomerular Filtration Rate 8 mL/min (>60); Est Glom Filt Rate - Afr Amer 10 mL/min (>60); Estimated Creatinine Clearance 11.08 ml/min; Globulin 4.8 g/dL (2.2-4.2); Glucose 192 mg/dL (74-106); Polychromasia 1+; Potassium 3.8 mmol/L (3.5-5.1); Protein, Total 7.8 g/dL (6.4-8.2); Sodium Level 142 mmol/L (136-145)
[2019-03-19 23:35] LABS: Lactic Acid 2.1 mmol/L (0.4-2.0)
--- NOTE | 2019-03-19 23:36 | ED.RN ---
notified Dr. Salazar of lactic acid 2.1
--- NOTE | 2019-03-19 23:43 | ED.RN ---
DR. PARADA MADE AWARE OF PT, RESPIRATORY STATUS, [place] LOW O2 SAT ON 4L NC. NO FURTHER ORDERS AT THIS TIME WILL CONTINUE TO MONITOR THE PT.
--- NOTE | 2019-03-19 23:45 | RAD_ITS ---
HISTORY: sob EXAM: XR Chest 1 View: COMPARISON: January 25, 2019 FINDINGS: # of images incl. paperwork: 1 Basilar consolidation is similar. Pulmonary edema is similar. Some atelectasis persists as well Heart is enlarged. Mild thoracic spondylosis Pulmonary vascularity is indistinct. Bilateral pleural effusions. RAD/Chest 1 View (Portable) IMPRESSION: Worsening bilateral pulmonary edema and increasing pleural effusions suggestive of CHF. at 0014 Reported and signed by: Alvin Valadez MD Electronically Signed: Alvin Valadez MD at 0:13 EDT Tel , Service support ,
[2019-03-20] VITALS: BP 154/63; PULSE 89; RESP 30; TEMP 36.9; O2SAT 92
[2019-03-20] MEDS: Morphine 4 MG/ML Syringe IV (00:09)
[2019-03-20] MEDS: Ondansetron 4 MG/2 ML Vial IV (00:09)
[2019-03-20 01:00] VITALS: BP 143/47; PULSE 89; RESP 26; TEMP 37.1; O2SAT 91
--- NOTE | 2019-03-20 01:40 | ED.RN ---
report called to dallin jose at [phone], pt to go to room 4203 bed 2.
[2019-03-20 01:41] VITALS: BP 134/54; PULSE 88; RESP 35; O2SAT 92
[2019-03-20 03:03] LABS: Reflex Lactate? Y
== END 2019-03-20 01:58 | disposition short-term general hospital (02) ==
PROVIDERS: Emergency Provider Emergency Medicine; Family Provider Family Medicine; PCP Family Medicine
DX: E11.52 Type 2 diabetes mellitus with diabetic peripheral angiopathy with gangrene (principal); M86.9 Osteomyelitis, unspecified; E11.22 Type 2 diabetes mellitus with diabetic chronic kidney disease; I13.2 Hypertensive heart and chronic kidney disease with heart failure and with stage 5 chronic kidney disease, or end stage renal disease; N18.6 End stage renal disease; I50.9 Heart failure, unspecified; Z99.2 Dependence on renal dialysis; I25.10 Atherosclerotic heart disease of native coronary artery without angina pectoris; E11.51 Type 2 diabetes mellitus with diabetic peripheral angiopathy without gangrene; J44.9 Chronic obstructive pulmonary disease, unspecified; E78.5 Hyperlipidemia, unspecified; Z95.5 Presence of coronary angioplasty implant and graft; Z99.81 Dependence on supplemental oxygen; Z79.4 Long term (current) use of insulin; Z79.82 Long term (current) use of aspirin; Z79.02 Long term (current) use of antithrombotics/antiplatelets; Z79.899 Other long term (current) drug therapy; Z87.891 Personal history of nicotine dependence
CPT/HCPCS: 71045; 73130; 73630; 80053; 83605; 84484; 85025; 85610; 87040; 93005; 96365; 96366; 96374; 96375; 96376; 99285; J7040; J7050; A4216; J2405

== ENCOUNTER 2019-04-07 09:16 | Inpatient (IN) | payer MEDICARE, SELFPAY ==
[2019-04-07 09:22] VITALS: BMI 31.9
[2019-04-07 09:55] VITALS: BMI 32.0
[2019-04-07 10:00] VITALS: BP 122/86; PULSE 90; RESP 18; TEMP 36.4; O2SAT 94
[2019-04-07] MEDS: Insulin Lispro 100 UNIT/ML INSULN.PEN 10 UNIT SC (12:09)
[2019-04-07 12:30] LABS: Bedside Glucose 114 mg/dL (70-110)
[2019-04-07] MEDS: HYDROcodone Bitartrate/Apap 5/325 Tablet PO ×2 (13:00→21:30)
[2019-04-07] MEDS: Heparin Injection (Vial) 5,000 UNIT/ML VIAL 5000 UNIT SC (13:02)
[2019-04-07] MEDS: Sodium Bicarbonate 650 MG Tablet PO ×3 (13:02→21:27)
--- NOTE | 2019-04-07 13:31 | HP.PCM_ITS ---
History of Present Illness Date of Admission: 04/07/19 Chief Complaint: chest pain The patient is a 43 year old F with an extensive past medical history as listed. She was admitted as a transfer from [facility] on 04/07/2019 with a complaint of chest pain which started in the early hours of the morning. She states chest pain woke her up from sleep. It was pressure-like and rated about 4/10. She had no assisted shortness of breath or palpitations, lightheadedness or dizziness. Review of systems is otherwise negative. She went to the [facility] where her EKG done showed no acute ST changes. Initial troponin was 0.6. Patient had a stent put in a few months ago. She requested transfer and was brought to [facility]. She has been admitted to managed for chest pain rule out ACS. [] Past Medical History Past Medical History (Chronic Problems): Chronic Problems (Last Reviewed 02/20/19 @ 20:33 by Pricila Olson) Raynaud's disease with gangrene (Chronic) Peripheral arterial disease (Chronic) Acute on chronic systolic (congestive) heart failure (Chronic) Ischemic cardiomyopathy (Chronic) EF in December 2018 on a stress test was 29% with extensive wall motion abnormalities COPD (chronic obstructive pulmonary disease) (Chronic) Elevated troponin I level (Chronic) Anemia due to chronic kidney disease (Chronic) CAD (coronary artery disease) (Chronic) Stented coronary artery (Chronic 01/28/19) FFR of LAD 0.82; VIKY of mid LAD with 2.5 X 24 mm Promus Synergy, OM <50% stenosis per Dr. Magdaleno @ [facility];Occluded mid LAD stent with L to R collaterals. Double vessel CAD of the LCX and OM#1 Segmented LV systolic dysfunction- Severe LVEF: by LV gram 25 % Elevated Left Ventricular End Diastolic Pressure Successful PCI with PTCA to the proximal OM#1 with a 1.5 and 2.0 mm balloon; unable to advance new deflated balloon beyond mid OM due to calcification. No dissection, no stents placed and pt had no symptoms . Successful PTCA/VIKY to mid LCX with 2.25 x 12 Promus Synergy, post dilated with a 2.25 x 8 NC Balloon; 75%-->0%, no dissection. ESRD (end stage renal disease) on dialysis (Chronic) Decubitus ulcer, stage III (Chronic) GABRIEL (obstructive sleep apnea) (Chronic) Depression (Chronic) Anxiety (Chronic) HTN (hypertension) (Chronic) S/P repair of PDA (patent ductus arteriosus) (Chronic) At young age Hyperlipidemia (Chronic) Obesity (BMI 30.0-34.9) (Chronic) Gastroparesis (Chronic) Medical History: Medical History (Last Reviewed 02/20/19 @ 20:33 by Pricila Olson) ESRD (end stage renal disease) on dialysis (Chronic) N18.6, Z99.2 Decubitus ulcer, stage III (Chronic) L89.93 GABRIEL (obstructive sleep apnea) (Chronic) G47.33 HTN (hypertension) (Chronic) I10 Hyperlipidemia (Chronic) E78.5 Obesity (BMI 30.0-34.9) (Chronic) E66.9 Gastroparesis (Chronic) K31.84 Allergies latex Allergy (Verified 03/19/19 21:59) Rash prochlorperazine [From Compazine] Allergy (Verified 03/19/19 21:59) Unknown levofloxacin [From Levaquin] Adverse Reaction (Verified 03/19/19 21:59) PT CAN'T REMEMBER PT CAN'T REMEMBER metoclopramide HCl [From Reglan] Adverse Reaction (Verified 03/19/19 21:59) Nausea NSAIDS (Non-Steroidal Anti-Inflamma Adverse Reaction (Verified 03/19/19 21:59) kidney function Home Medications: Ambulatory Orders Medication Instructions Recorded Aspirin [Aspirin, Baby] 81 mg PO DAILY@0800 01/26/16 Ergocalciferol [Vitamin D] 50,000 unit PO QWEEK 01/26/16 Insulin Aspart [Novolog Flexpen] 10 units SC TIDCM 01/26/16 Insulin Glargine,Hum.rec.anlog 5 unit SQ QHS 01/09/17 [Lantus] Sodium Bicarbonate 650 mg PO 4X/DAY 03/29/17 Atorvastatin Calcium [Lipitor] 10 mg PO QHS 05/26/18 Carvedilol [Coreg] 25 mg PO BID 05/26/18 Pantoprazole Sodium [Protonix] 20 mg PO BID 05/26/18 Clopidogrel Bisulfate [Plavix] 75 mg PO DAILY 07/01/18 ALPRAZolam [Xanax] 0.5 mg PO MOWEFR PRN 08/09/18 B Complex W-C No.20/Folic Acid 1 mg PO MOWEFR 08/09/18 [Nephrocaps Softgel] Fluoxetine HCl 40 mg PO DAILY 08/09/18 Lidocaine/Prilocaine HCl [Emla 1 applicatio TOPICAL MOWEFR 10/01/18 Cream W/Tegaderm] Nystatin Powder [Mycostatin Powder] 1 applic TOPICAL BID PRN 10/14/18 hydrOXYzine tablet [Atarax tablet] 10 mg PO MOWEFR 11/06/18 Sodium Chloride 0.65% [[place] Nasal 2 spray NASAL TID PRN PRN 12/14/18 [place]] spray.btl Acetaminophen [Tylenol Tablet] 650 mg PO Q6H PRN PRN tab 01/29/19 Nitroglycerin (INPATIENT USE) 0.4 mg SUBLINGUAL Q5M PRN #10 01/29/19 [Nitrostat] tab.subl amlodipine 2.5 mg tablet 2.5 mg PO DAILY 02/28/19 Amox/Clavulanate Tablet [Augmentin 500 mg PO BID 03/19/19 Tablet] Doxycycline Hyclate 100 mg PO BID 03/19/19 Hydrocodone Bitart/Apap 5-325 2 tab PO Q6H PRN PRN 03/19/19 [[place] 5MG-325MG] Isosorbide Mononitrate [Imdur] 60 mg PO DAILY 04/07/19 Lisinopril [Zestril] 10 mg PO DAILY 04/07/19 Sucroferric Oxyhydroxide [Velphoro] 1,500 mg PO TIDCM 04/07/19 Surgical History: Surgical History (Last Reviewed 02/20/19 @ 20:33 by rPicila Olson) Stented coronary artery (Chronic) Onset Date: 01/28/19 Z95.5 FFR of LAD 0.82; VIKY of mid LAD with 2.5 X 24 mm Promus Synergy, OM <50% stenosis per Dr. Magdaleno @ [facility];Occluded mid LAD stent with L to R collaterals. Double vessel CAD of the LCX and OM#1 Segmented LV systolic dysfunction- Severe LVEF: by LV gram 25 % Elevated Left Ventricular End Diastolic Pressure Successful PCI with PTCA to the proximal OM#1 with a 1.5 and 2.0 mm balloon; unable to advance new deflated balloon beyond mid OM due to calcification. No dissection, no stents placed and pt had no symptoms . Successful PTCA/VIKY to mid LCX with 2.25 x 12 Promus Synergy, post dilated with a 2.25 x 8 NC Balloon; 75%-->0%, no dissection. 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 Action required.) Father Diabetes Mother CVA (cerebral vascular accident) Hypertension Diabetes Cancer History Items: Cancer, COPD, Diabetes, Hypertension, Renal Disease, Stroke Paternal Family History: Family History (This Medical Record has been edited. Action required.) Father Diabetes Mother CVA (cerebral vascular accident) Hypertension Diabetes Cancer History Items: Diabetes, Heart Disease Sibling Family History: Family History (This Medical Record has been edited. Action required.) Father Diabetes Mother CVA (cerebral vascular accident) Hypertension Diabetes Cancer History Items: Cancer, Diabetes Review of Systems Constitutional: Denies: Chills, Fever, Malaise, Weakness, Weight Change Eyes: Denies: Blurred vision HEENT: Denies: Head Aches, Sinus Congestion, Sinus Drainage Cardiovascular: Reports: Chest Pain, Chest Pressure. Denies: Palpitations Respiratory: Denies: Cough, Shortness of breath at rest, Sputum production Gastrointestinal: Denies: Abdominal Pain, Nausea, Vomiting Genitourinary: Denies: Dysuria Musculoskeletal: Denies: Joint Pain, Joint Tenderness Skin: Denies: Rash, Wounds Neurological: Denies: Numbness, Tingling, Focal weakness Psychiatric: Denies: Anxiety, Depression, Homicidal Ideations, Suicidal Ideations Hematologic/ Lymphatic: Denies: Easy Bruising, Easy Bleeding VTE Information - Inpt Only VTE Present on Admission: No VTE Pharm Prophylaxis ordered?: Yes - Physical Exam General: Alert, Oriented x3, Cooperative, No apparent distress HEENT: Atraumatic, PERRLA, EOMI, Normocephalic Oral: Dry Mucosa Neck: Supple, No JVD, Negative Carotid Bruits Lungs: Clear to auscultation, Normal air movement, No rhonchi, No wheeze, No rales Cardiovascular: Regular rate, Regular Rhythm, Normal S1, Normal S2, No murmurs Abdomen: Bowel Sounds Present, Soft, Non Tender, - - colostomy bag filled with black stool Extremities: No clubbing, No cyanosis, No edema, Capillary Refill Less than 3 Seconds Skin: - - dry gangrene of fingers and toes- chronic Musculoskeletal: No Tenderness to Palpation of Joints or Extremities Lymphatic: No Cervical, Supraclavicular, or Inguinal Adenopathy Neurological: Cranial nerves II-XII grossly intact Psych/Mental Status: Normal Affect, Appropriate, Alert and oriented to time, place, person, mood and affect Oxygen Flow Rate (L/min) 4 Oxygen Delivery Method Nasal Cannula Weight: 198 lb 3.129 oz Body Mass Index (BMI) 31.9 Finger Stick Blood Glucose 118 Intake and Output for Last 24 Hours 04/05/19 04/06/19 04/07/19 23:59 23:59 23:59 Intake Total 240 / 240 Balance 240 / 240 Laboratory Tests Past 24 Hrs 04/07/19 12:05 Troponin I 0.516 H POC Glucose 04/07/19 12:08 POC Glucose 114 H Assessment/Plan All Active Problems (Last Reviewed 02/20/19 @ 20:33 by Pricila Olson) Osteomyelitis (Ruled-out) GI bleed (Acute) Metabolic alkalosis (Acute) Chest pain (Resolved) Hypotension (Resolved) 43 y/o female admitted with a complaint of chest pain. 1. Chest pain to r/o ACS * admit to PCU with telemetry * initial troponin from [facility] was 0.6 * will cycle troponins * repeat EKG here; EKG from [facility] showed no acute ST changes * consult cardiology, in light of patient's extensive cardiac history- had stents to mid LAD in February 2018 and stenting of the mid left circumflex and obtuse marginal arteries * Po aspirin 81mg daily, plavix 75mg daily * SL nitroglycerin prn * 2. CAD and ischemic cardiomyopathy: * as under 1. On aspirin, plavix and statin, amlodipine, Coreg, imdur and hydralazine as well as lisinopril. * Per cardiology notes from 03/11, if she continued to have anginal symptoms refractory to sublingual nitroglycerin, to consider starting Ranexa 3. ERSD on HD: has HD Monday, and monday. Consult nephrology 4. Hyperlipidemia: on statin 5. Peripheral artery disease and renal artery disease: Has gangrene of the tip of the right fourth finger as well as gangrene of some of her toes. Scheduled follow-up with vascular surgery rheumatology. 6. Type 2 diabetes mellitus: On insulin. Accu-Cheks before meals at bedtime. Sliding scale. 6. Hypertension: On amlodipine, Coreg and hydralazine. 7. GERD: On PPI. 8. Colostomy: * States she had a diverting colostomy on account of sacral ulcers. * Sacral ulcers have resolved and she is a she is going to follow-up with general surgery to see colostomy can be reversed. * Ostomy contains black stools which she states is chronic. * 9. Chronic anemia of chronic disease: Hemoglobin is 10.5. Stable. DVT prophylaxis: Heparin. CODE STATUS: Full code * Patient counseled extensively about different types of CODE STATUS including full code, DNR CCA and DNR CCA. Patient elects to be full code. Total [id number]-ix-[id number] time 16 minutes. Code Visit OBSV E&M: 39441 Initial observation care L3 Procedures: 42228 Advncd Care Plan 30 Min
--- NOTE | 2019-04-07 13:36 | EKG12_ITS ---
Test Reason : Blood Pressure : / mmHG Vent. Rate : 094 BPM Atrial Rate : 094 BPM P-R Int : 164 ms QRS Dur : 108 ms QT Int : 386 ms P-R-T Axes : 061 084 239 degrees QTc Int : 482 ms Normal sinus rhythm ST & T wave abnormality, consider inferior ischemia Abnormal ECG When compared with ECG of 19-MAR-2019 22:38, ST elevation now present in Anterior leads Confirmed by DIVINA BEASLEY, SUSI ([id number]), manuscript editor SHANIA SOLITARIO ([id number] on 04/09/2019 12:17:09 PM Referred By: DEYSI Confirmed By:SUSI MURCIA MD
[2019-04-07 15:08] VITALS: PULSE 92
[2019-04-07 15:30] VITALS: BP 107/59; PULSE 90; RESP 18; TEMP 36.6; O2SAT 94
[2019-04-07] MEDS: SUCROFERRIC OXYHYDROXIDE 500 MG TAB.CHEW 1500 MG PO (16:21)
[2019-04-07 16:36] LABS: Bedside Glucose 78 mg/dL (70-110)
--- NOTE | 2019-04-07 17:20 | PCM.CONS.C ---
Problem List (1) Elevated troponin I level Status: Chronic Reason for Consult Date of Consultation: 04/07/19 Reason for Consultation: nstemi History of Present Illness: The patient is a 43 year old F with an extensive past medical history as listed. She was admitted as a transfer from [facility] on 04/07/2019 with a complaint of chest pain which started in the early hours of the morning. She states chest pain woke her up from sleep. It was pressure-like and rated about 4/10. She had no assisted shortness of breath or palpitations, lightheadedness or dizziness. Review of systems is otherwise negative. She went to the [facility] where her EKG done showed no acute ST changes. Initial troponin was 0.6. Patient had a stent put in a few months ago. She requested transfer and was brought to [facility]. Her chest pain is improved. Her chest pain is similar to the pain she had prior to PCI in the past. She states that after PCI her chest pain had improved. She has remained afebrile. Review of systems: All systems reviewed. All others negative except that in the HPI. Past Medical History Allergies/Adverse Reactions: Allergies latex Allergy (Verified 03/19/19 21:59) Rash prochlorperazine [From Compazine] Allergy (Verified 03/19/19 21:59) Unknown levofloxacin [From Levaquin] Adverse Reaction (Verified 03/19/19 21:59) PT CAN'T REMEMBER PT CAN'T REMEMBER metoclopramide HCl [From Reglan] Adverse Reaction (Verified 03/19/19 21:59) Nausea NSAIDS (Non-Steroidal Anti-Inflamma Adverse Reaction (Verified 03/19/19 21:59) kidney function Home Medications: Ambulatory Orders Medication Instructions Recorded Aspirin [Aspirin, Baby] 81 mg PO DAILY@0800 01/26/16 Ergocalciferol [Vitamin D] 50,000 unit PO QWEEK 01/26/16 Insulin Aspart [Novolog Flexpen] 10 units SC TIDCM 01/26/16 Insulin Glargine,Hum.rec.anlog 5 unit SQ QHS 01/09/17 [Lantus] Sodium Bicarbonate 650 mg PO 4X/DAY 03/29/17 Atorvastatin Calcium [Lipitor] 10 mg PO QHS 05/26/18 Carvedilol [Coreg] 25 mg PO BID 05/26/18 Pantoprazole Sodium [Protonix] 20 mg PO BID 05/26/18 Clopidogrel Bisulfate [Plavix] 75 mg PO DAILY 07/01/18 ALPRAZolam [Xanax] 0.5 mg PO MOWEFR PRN 08/09/18 B Complex W-C No.20/Folic Acid 1 mg PO MOWEFR 08/09/18 [Nephrocaps Softgel] Fluoxetine HCl 40 mg PO DAILY 08/09/18 Lidocaine/Prilocaine HCl [Emla 1 applicatio TOPICAL MOWEFR 10/01/18 Cream W/Tegaderm] Nystatin Powder [Mycostatin Powder] 1 applic TOPICAL BID PRN 10/14/18 hydrOXYzine tablet [Atarax tablet] 10 mg PO WE11/06/18 Sodium Chloride 0.65% [[place] Nasal 2 spray NASAL TID PRN PRN 12/14/18 [place]] spray.btl Acetaminophen [Tylenol Tablet] 650 mg PO Q6H PRN PRN tab 01/29/19 Nitroglycerin (INPATIENT USE) 0.4 mg SUBLINGUAL Q5M PRN #10 01/29/19 [Nitrostat] tab.subl amlodipine 2.5 mg tablet 2.5 mg PO DAILY 02/28/19 Amox/Clavulanate Tablet [Augmentin 500 mg PO BID 03/19/19 Tablet] Doxycycline Hyclate 100 mg PO BID 03/19/19 Hydrocodone Bitart/Apap 5-325 2 tab PO Q6H PRN PRN 03/19/19 [[place] 5MG-325MG] Isosorbide Mononitrate [Imdur] 60 mg PO DAILY 04/07/19 Lisinopril [Zestril] 10 mg PO DAILY 04/07/19 Sucroferric Oxyhydroxide [Velphoro] 1,500 mg PO TIDCM 04/07/19 Past Medical History (Chronic Problems): Chronic Problems (Last Reviewed 02/20/19 @ 20:33 by Pricila Olson) Raynaud's disease with gangrene (Chronic) Peripheral arterial disease (Chronic) Acute on chronic systolic (congestive) heart failure (Chronic) Ischemic cardiomyopathy (Chronic) EF in December 2018 on a stress test was 29% with extensive wall motion abnormalities COPD (chronic obstructive pulmonary disease) (Chronic) Elevated troponin I level (Chronic) Anemia due to chronic kidney disease (Chronic) CAD (coronary artery disease) (Chronic) Stented coronary artery (Chronic 01/28/19) FFR of LAD 0.82; VIKY of mid LAD with 2.5 X 24 mm Promus Synergy, OM <50% stenosis per Dr. Magdaleno @ [facility];Occluded mid LAD stent with L to R collaterals. Double vessel CAD of the LCX and OM#1 Segmented LV systolic dysfunction- Severe LVEF: by LV gram 25 % Elevated Left Ventricular End Diastolic Pressure Successful PCI with PTCA to the proximal OM#1 with a 1.5 and 2.0 mm balloon; unable to advance new deflated balloon beyond mid OM due to calcification. No dissection, no stents placed and pt had no symptoms . Successful PTCA/VIKY to mid LCX with 2.25 x 12 Promus Synergy, post dilated with a 2.25 x 8 NC Balloon; 75%-->0%, no dissection. 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 Action required.) Father Diabetes Mother CVA (cerebral vascular accident) Hypertension Diabetes Cancer History Items: Cancer, COPD, Diabetes, Hypertension, Renal Disease, Stroke Paternal Family History: Family History (This Medical Record has been edited. Action required.) Father Diabetes Mother CVA (cerebral vascular accident) Hypertension Diabetes Cancer History Items: Diabetes, Heart Disease Sibling Family History: Family History (This Medical Record has been edited. Action required.) Father Diabetes Mother CVA (cerebral vascular accident) Hypertension Diabetes Cancer History Items: Cancer, Diabetes Smoking Status: Former smoker Objective: Vital Signs Temp Pulse Resp BP Pulse Ox 98 F 90 18 107/59 L 94 04/07/19 15:30 04/07/19 15:30 04/07/19 15:30 04/07/19 15:30 04/07/19 15:30 Oxygen Flow Rate (L/min) 4 Oxygen Delivery Method Nasal Cannula Weight: 198 lb 3.129 oz Body Mass Index (BMI) 31.9 Finger Stick Blood Glucose 118 Intake and Output for Last 24 Hours 04/05/19 04/06/19 04/07/19 23:59 23:59 23:59 Intake Total 240 / 240 Balance 240 / 240 General: Awake, Alert, Oriented x 3 HEENT: Atraumatic Oral: Moist Mucosa Neck: Supple Lungs: Rales - Right Base Cardiovascular: Regular Rhythm Abdomen: Soft Extremities: No edema Skin: No Rashes Psych/Mental Status: Appropriate 04/07/19 12:05: Troponin I 0.516 H 04/07/19 15:15: Troponin I 0.432 H Rhythm: EKG: ECHO: Stress Test: Cardiac Cath: PCI: CT Surgery: Holter monitor: EPS: PPM: CXR: Chest CT Scan: Assessment/Plan 1. Non-STEMI: Patient symptoms are similar to what she had prior to PCI in the past. Discussed treatment options with the patient in detail. I think it will be reasonable to proceed with coronary angiography tomorrow. It would be reasonable to also start the patient on body weight-based heparin or Lovenox.
[2019-04-07 18:25] LABS: Bedside Glucose 126 mg/dL (70-110)
--- NOTE | 2019-04-07 18:54 | PCM.CONS.R ---
Consultation - Renal 04/07/19 PCP/ Referring MD: Requesting physician: Dr. Lucas Primary care physician: Christopher Foy MD Reason for Consultation:: Renal management of ESRD patient - History of Present Illness History of Present Illness: The patient is a 43 year old F with past history of ESRD 2/2 diabetic nephropathy, T2DM, HTN, COPD and PAD. The pt is admitted with acute coronary syndrome. She presented with CP that woke her up this morning. Pain is now 1/10. No current SOB, nausea, or edema. She was recently admitted at [facility] last month for treatment of R digits PAD/gangrene. She still complains of fingers pain. The pt usually dialyzes at [facility] on MWF schedule. She was last dialyzed on 04/05/19. - Allergies Allergies: Allergies latex Allergy (Verified 03/19/19 21:59) Rash prochlorperazine [From Compazine] Allergy (Verified 03/19/19 21:59) Unknown levofloxacin [From Levaquin] Adverse Reaction (Verified 03/19/19 21:59) PT CAN'T REMEMBER PT CAN'T REMEMBER metoclopramide HCl [From Reglan] Adverse Reaction (Verified 03/19/19 21:59) Nausea NSAIDS (Non-Steroidal Anti-Inflamma Adverse Reaction (Verified 03/19/19 21:59) kidney function - Current Medications Current Medications: Current Medications Acetaminophen (Tylenol) 650 mg PO Q6H PRN PRN PRN Reason: Mild Pain (0-2/10) Hydrocodone Bitart/Acetaminophen ([place] 5mg-325mg) 2 tablet PO Q6H PRN PRN PRN Reason: PAIN Last Admin: 04/07/19 13:00 Dose: 2 tablet Documented by: Alprazolam (Xanax) 0.5 mg PO MOWEFR PRN PRN Reason: ANXIETY Amlodipine Besylate (Norvasc) 2.5 mg PO DAILY REPLACED BY [facility] Amoxicillin/Clavulanate Potassium (Augmentin Tablet) 500 mg PO DAILY@1200 [place] Stop: 04/10/19 12:01 Aspirin (Aspirin, Baby) 81 mg PO DAILY@0800 REPLACED BY [facility] Atorvastatin Calcium (Lipitor) 10 mg PO QHS REPLACED BY [facility] Carvedilol (Coreg) 25 mg PO BID [place] Clopidogrel Bisulfate (Plavix) 75 mg PO DAILY REPLACED BY [facility] Dextrose (D50w Syringe) 0 gm IV X1 PRN; Protocol PRN Reason: Hypoglycemia Doxycycline Monohydrate (Doxycycline) 100 mg PO BID REPLACED BY [facility] Stop: 04/10/19 22:01 Ergocalciferol (Vitamin D) 50,000 unit PO QWEEK REPLACED BY [facility] Fluoxetine HCl (Prozac) 40 mg PO DAILY REPLACED BY [facility] Glucagon () 1 mg IM .X1 PRN PRN Reason: Hypoglycemia Heparin Sodium (Porcine) (Heparin Na) 0 unit IV UD PRN; Protocol Hydroxyzine HCl (Atarax Tablet) 10 mg PO MOWEFR REPLACED BY [facility] Sodium Chloride () 1,000 mls @ 0 mls/hr IV .Q0M [place] Heparin Sodium/Dextrose () 25,000 units in 250 mls @ 12 mls/hr IV .[id number] REPLACED BY [facility]; Protocol Insulin Glargine (Lantus (Bk)) 5 units SC QHS REPLACED BY [facility] Insulin Human Lispro (Humalog Kwikpen ([facility])) 10 unit SC 0800,1200,1700 REPLACED BY [facility] Last Admin: 04/07/19 17:20 Dose: Not Given Documented by: Insulin Human Lispro (Humalog Kwikpen ([facility])) 0 unit SC ACHS REPLACED BY [facility]; Protocol Last Admin: 04/07/19 17:20 Dose: Not Given Documented by: Isosorbide Mononitrate (Imdur) 60 mg PO DAILY REPLACED BY [facility] Lisinopril (Zestril) 10 mg PO DAILY REPLACED BY [facility] Multivit/Ca Carb/B Cmplx/FA/Prenat (Nephrocaps, Renaphro) 1 capsule PO MOWEFR REPLACED BY [facility] Nitroglycerin (Nitrostat) 0.4 mg SUBLINGUAL Q5M PRN PRN Reason: CARDIAC/CHEST PAIN Pantoprazole Sodium (Protonix) 20 mg PO BID REPLACED BY [facility] Sodium Bicarbonate (Sodium Bicarbonate) 650 mg PO 4X/DAY REPLACED BY [facility] Last Admin: 04/07/19 16:21 Dose: 650 mg Documented by: Sodium Chloride (Bates Nasal [place]) 2 spray NASAL TID PRN PRN PRN Reason: NASAL DRYNESS - Past Medical History Past Medical History (Chronic Problems): Chronic Problems (Last Reviewed 02/20/19 @ 20:33 by Pricila Olson) Raynaud's disease with gangrene (Chronic) Peripheral arterial disease (Chronic) Acute on chronic systolic (congestive) heart failure (Chronic) Ischemic cardiomyopathy (Chronic) EF in December 2018 on a stress test was 29% with extensive wall motion abnormalities COPD (chronic obstructive pulmonary disease) (Chronic) Elevated troponin I level (Chronic) Anemia due to chronic kidney disease (Chronic) CAD (coronary artery disease) (Chronic) Stented coronary artery (Chronic 01/28/19) FFR of LAD 0.82; VIKY of mid LAD with 2.5 X 24 mm Promus Synergy, OM <50% stenosis per Dr. Magdaleno @ [facility];Occluded mid LAD stent with L to R collaterals. Double vessel CAD of the LCX and OM#1 Segmented LV systolic dysfunction- Severe LVEF: by LV gram 25 % Elevated Left Ventricular End Diastolic Pressure Successful PCI with PTCA to the proximal OM#1 with a 1.5 and 2.0 mm balloon; unable to advance new deflated balloon beyond mid OM due to calcification. No dissection, no stents placed and pt had no symptoms . Successful PTCA/VIKY to mid LCX with 2.25 x 12 Promus Synergy, post dilated with a 2.25 x 8 NC Balloon; 75%-->0%, no dissection. ESRD (end stage renal disease) on dialysis (Chronic) Decubitus ulcer, stage III (Chronic) GABRIEL (obstructive sleep apnea) (Chronic) Depression (Chronic) Anxiety (Chronic) HTN (hypertension) (Chronic) S/P repair of PDA (patent ductus arteriosus) (Chronic) At young age Hyperlipidemia (Chronic) Obesity (BMI 30.0-34.9) (Chronic) Gastroparesis (Chronic) - Past Surgical History Surgical History: angioplasty, appendectomy, hysterectomy, - - Social History Smoking Status: Former smoker - Family History Maternal Family History: Family History (This Medical Record has been edited. Action required.) Father Diabetes Mother CVA (cerebral vascular accident) Hypertension Diabetes Cancer History Items: Cancer, COPD, Diabetes, Hypertension, Renal Disease, Stroke Paternal Family History: Family History (This Medical Record has been edited. Action required.) Father Diabetes Mother CVA (cerebral vascular accident) Hypertension Diabetes Cancer History Items: Diabetes, Heart Disease Sibling Family History: Family History (This Medical Record has been edited. Action required.) Father Diabetes Mother CVA (cerebral vascular accident) Hypertension Diabetes Cancer History Items: Cancer, Diabetes Review of Systems Constitutional: Reports: Weakness. Denies: Anorexia, Chills, Fever Eyes: Denies: Blurred vision, Pain, Redness HEENT: Denies: Head Aches, Sinus Congestion, Sinus Drainage Cardiovascular: Reports: Chest Pain, Chest Pressure. Denies: Edema Respiratory: Denies: Cough, Shortness of breath at rest, Sputum production Gastrointestinal: Denies: Abdominal Pain, Nausea, Vomiting Genitourinary: Reports: - - Dialysis dependent. Denies: Dysuria Musculoskeletal: Denies: Joint Pain, Joint Tenderness Skin: Reports: Wounds - R fingers necrosis. Denies: Rash Neurological: Reports: Tingling. Denies: Blurred vision, Double vision, Focal weakness Psychiatric: Denies: Anxiety, Depression, Homicidal Ideations, Suicidal Ideations Endocrine: Denies: Polydipsia, Polyuria Hematologic/ Lymphatic: Denies: Easy Bruising, Easy Bleeding - Physical Exam General: Alert, Oriented x3, Cooperative HEENT: Atraumatic, PERRLA, EOMI, Normocephalic Oral: Moist Mucosa Neck: Supple, No JVD Lungs: Clear to auscultation Cardiovascular: Regular rate, Regular Rhythm, Normal S1, Normal S2 Abdomen: Bowel Sounds Present, Soft, Non Tender, Non-Distended Extremities: No edema Skin: No rashes Musculoskeletal: No Tenderness to Palpation of Joints or Extremities Vital Signs Temp Pulse Resp BP Pulse Ox 98 F 90 18 107/59 L 94 04/07/19 15:30 04/07/19 15:30 04/07/19 15:30 04/07/19 15:30 04/07/19 15:30 Oxygen Flow Rate (L/min) 4 Oxygen Delivery Method Nasal Cannula Weight: 89.9 kg Body Mass Index (BMI) 31.9 Finger Stick Blood Glucose 118 Intake and Output for Last 24 Hours 04/05/19 04/06/19 04/07/19 23:59 23:59 23:59 Intake Total 240 / 240 Balance 240 / 240 Laboratory Tests Past 24 Hrs 04/07/19 04/07/19 04/07/19 12:05 15:15 18:15 APTT Troponin I 0.516 H 0.432 H Pending 04/07/19 18:40 APTT Pending Troponin I POC Glucose 04/07/19 04/07/19 04/07/19 18:20 16:20 12:08 POC Glucose 126 H 78 114 H Assessment/Plan All Active Problems (Last Reviewed 02/20/19 @ 20:33 by Pricila Olson) Osteomyelitis (Ruled-out) GI bleed (Acute) Metabolic alkalosis (Acute) Chest pain (Resolved) Hypotension (Resolved) 1. ESRD. HD MWF. No need for dialysis today. Will arrange for dialysis tomorrow. 2. Anemia. Hgb<10. Will continue ESTUARDO with HD. Monitor Hgb. 3. HTN. BP is controlled. Continue current medications and TW. 4. SHPT. Not currently on phos binder. Check Ca/P in am. 5. Acute coronary syndrome. Management as per hospital medicine service and cardiology. Probable coronary angiogram +/- PCI tomorrow.
[2019-04-07 18:59] VITALS: PULSE 90
[2019-04-07 20:04] LABS: Partial Thromboplast Time 32.3 Seconds (24.1-36.2)
[2019-04-07] MEDS: Heparin Injection (Vial) 5,000 UNIT/ML VIAL 6000 UNIT IV (20:53)
[2019-04-07 21:20] VITALS: BP 117/84; PULSE 88; RESP 20; TEMP 36.8; O2SAT 96
[2019-04-07] MEDS: HEPARIN/D5w 25,000 UNITS 25,000 UNITS/250 ML IV.SOLN. 12 UNITS IV (21:20)
[2019-04-07] MEDS: Doxycycline 100 MG CAPSULE PO (21:25)
[2019-04-07] MEDS: Carvedilol 25 MG Tablet PO (21:26)
[2019-04-07] MEDS: Atorvastatin Calcium 10 MG Tablet PO (21:26)
[2019-04-07] MEDS: Pantoprazole Sodium 20 MG Tablet PO (21:27)
[2019-04-07 22:10] LABS: Bedside Glucose 129 mg/dL (70-110)
[2019-04-08] VITALS (27 sets, daily range): BP systolic 82–133; BP diastolic 33–92; PULSE 50–81; RESP 15–100; TEMP 2.7–36.8; O2SAT 87–100
[2019-04-08 00:06] LABS: Bedside Glucose 138 mg/dL (70-110)
[2019-04-08] MEDS: Ondansetron 4 MG/2 ML Vial IV (03:27)
[2019-04-08 03:52] LABS: Absolute Lymphocyte Count 1.35 X10^3/uL (0.83-4.51); Absolute Neutrophil Count 4.8 X10^3/uL (2.0-7.7); Basophil# 0.04 X10^3/uL; Basophil% 0.6 % (0-1); Eosinophil# 0.28 X10^3/uL; Eosinophils% 4.1 % (0-5); Hematocrit 28.6 % (37-47); Hemoglobin 8.6 g/dL (12.0-15.0); Lymphocyte # 1.35 X10^3/ul (4.0); Lymphocyte % 19.6 % (19-41); Mean Corp Hgb Conc 30.1 g/dL (32-36); Mean Corpuscular Hgb 34.4 pg (27.0-32.0); Mean Corpuscular Volume 114.4 fL (81-99); Mean Platelet Vol. 9.9 fl (6.2-12.0); Monocyte% 5.8 % (0-10); NRBC Flagged by Analyzer 0.9 % (0-5); Neutrophil # 4.78 X10^3/uL (2.7-7.7); Neutrophil % 69.3 % (47-70); POSITIVE MORPHOLOGY YES; Platelet Count 99 K/mm3 (150-450); RBC Distribution Width CV 17.2 % (11.6-14.6); RBC Distribution Width SD 71.7 fl (35.1-43.9); White Blood Count 6.9 K/mm3 (4.4-11.0)
[2019-04-08 03:57] LABS: Differential Indicated SCAN CRITERIA MET
[2019-04-08 04:13] LABS: Partial Thromboplast Time 150.4 Seconds (24.1-36.2)
[2019-04-08 04:19] LABS: Differential Comment SCANNED; Macrocytosis 3+
[2019-04-08 04:28] LABS: Anion Gap 15 (5-15); BUN 78 mg/dL (7-18); BUN/Creat Ratio 9.1 RATIO (10-20); Calcium,Total 8.8 mg/dL (8.5-10.1); Chloride 100 mmol/L (98-107); Creatinine, Serum 8.53 mg/dL (0.55-1.02); EST Glomerular Filtration Rate 5 mL/min (>60); Est Glom Filt Rate - Afr Amer 7 mL/min (>60); Glucose 99 mg/dL (74-106); Sodium Level 140 mmol/L (136-145)
[2019-04-08 04:57] LABS: Phosphorus 8.9 mg/dL (2.5-4.9)
[2019-04-08] MEDS: Clopidogrel Bisulfate 75 MG Tablet PO (05:22)
[2019-04-08] MEDS: Aspirin 81 MG TAB.CHEW PO (05:22)
[2019-04-08 06:59] LABS: Hematocrit 28.9 % (37-47); Hemoglobin 8.5 g/dL (12.0-15.0); Mean Corp Hgb Conc 29.4 g/dL (32-36); Mean Corpuscular Hgb 33.1 pg (27.0-32.0); Mean Corpuscular Volume 112.5 fL (81-99); POSITIVE MORPHOLOGY YES; Platelet Count 99 K/mm3 (150-450); RBC Distribution Width CV 17.2 % (11.6-14.6); RBC Distribution Width SD 70.3 fl (35.1-43.9); Red Blood Count 2.57 M/mm3 (4.2-5.4); White Blood Count 7.3 K/mm3 (4.4-11.0)
[2019-04-08 07:00] LABS: Bedside Glucose 86 mg/dL (70-110)
[2019-04-08 07:04] LABS: Scan Indicated on CBC? Y/N YES- FLAGS NOTED
[2019-04-08 07:08] LABS: International Normalized Ratio 1.6; Prothrombin Time (Protime)PT. 18.8 SECONDS (11.7-14.9)
--- NOTE | 2019-04-08 07:10 | NURSING ---
Report called to Leo TEJADA in [facility]. [facility] ready for pt to come down. Heparin gtt stopped.
[2019-04-08 07:17] LABS: Differential Comment SCANNED
[2019-04-08] MEDS: 0.9% Normal Saline 1,000 ML 15 ML IV (07:21)
[2019-04-08 07:32] LABS: Anion Gap 16 (5-15); BUN 79 mg/dL (7-18); BUN/Creat Ratio 9.2 RATIO (10-20); Calcium,Total 8.7 mg/dL (8.5-10.1); Chloride 100 mmol/L (98-107); Creatinine, Serum 8.59 mg/dL (0.55-1.02); EST Glomerular Filtration Rate 5 mL/min (>60); Est Glom Filt Rate - Afr Amer 6 mL/min (>60); Estimated Creatinine Clearance 7.74 ml/min; Glucose 78 mg/dL (74-106); Potassium 6.6 mmol/L (3.5-5.1); Sodium Level 141 mmol/L (136-145)
[2019-04-08 08:57] LABS: ACT Activated Clotting Time 202 sec (74-137)
[2019-04-08] MEDS: Glucagon 1 MG/ML Syringe IM (09:59)
--- NOTE | 2019-04-08 10:04 | ECHOCS_ITS ---
Reason For Study: CHF Procedure This was a 2D Doppler, Color Flow transthoracic echocardiogram. The study was technically difficult. Exam performed portable in ICU/CCU. Left Ventricle Severely dilated left ventricle. The estimated ejection fraction is 25 %. Stage 2 diastolic dysfunction. There are regional wall motion abnormalities as specified. Mid-Anterior : Akinetic. Mid-Lateral : Severely Hypokinetic. Mid-anteroseptal : Severely Hypokinetic. Anterior [place] : Akinetic. Inferior [place] : Akinetic. Right Ventricle Moderately dilated right ventricle. Normal systolic function. Atria The left atrium is mildly enlarged. Normal right atrium. Normal atrial septum. Mitral Valve The mitral valve is structurally normal. No prolapse or stenosis seen. Trivial mitral valve insufficiency. Tricuspid Valve Normal tricuspid valve. Mild (1+) tricuspid valve insufficiency. Right ventricular systolic pressure estimated to be 34 mmHg. Aortic Valve Trisinus/trileaflet aortic valve. Aortic sclerosis, no stenosis. Pulmonic Valve Normal pulmonic valve. Trivial pulmonic valve insufficiency. Great Vessels Normal aortic root. Normal arch. Normal inferior vena cava. Inferior vena cava collapse with sniff. Pericardium/Pleural No pericardial effusion. Medication Diluted definity 2ml given slow IV push to enhance endocardial definition. MMode/2D Measurements & Calculations LVIDd: 5.5 cm IVSd: 1.1 cm Ao root diam: 3.1 cm LVIDs: 4.2 cm LVPWd: 1.2 cm RVDd: 3.9 cm FS: 22.9 % LAV(MOD-bp): 66.6 ml LA A4 area: 22.4 cm2 LA dimension(2D): 3.8 cm LAV(MOD-bp) Indexed: 33.4 ml/m2 LAV(MOD-sp2): 57.3 ml LAV(MOD-sp4): 67.7 ml RA A4 area: 13.4 cm2 Doppler Measurements & Calculations MV E max lópez: 93.7 cm/sec Lat Peak E' López: 4.2 cm/sec Med Peak E' López: 3.9 cm/sec MV A max lópez: 48.8 cm/sec E/E' lat: 22.3 E/E' med: 23.8 MV E/A: 1.9 Ao V2 max: 117.0 cm/sec LV V1 max: 87.4 cm/sec PA V2 max: 91.3 cm/sec Ao max P.5 mmHg LV V1 max P.1 mmHg TR max lópez: 267.3 cm/sec TR max P.6 mmHg Interpretation Summary Severely dilated left ventricle. The estimated ejection fraction is 25 %. Stage 2 diastolic dysfunction. Moderately dilated right ventricle. Trivial mitral valve insufficiency. Mild (1+) tricuspid valve insufficiency. Right ventricular systolic pressure estimated to be 34 mmHg. The study was technically difficult. Contrast injection was performed. There is no comparison study available. Ordering Physician: Mark Magdaleno Referring Physician: Christopher Foy Performed By: Linh Finch RDCS
--- NOTE | 2019-04-08 10:13 | PCM.PN.REN ---
Subjective: Pt had cardiac cath earlier today. Little drowsy this morning . blood sugar is low at 55. Pt is being given dextrose IV Denied CP. No SOB - Physical Exam General: - - little drowsy but opens her eyes and answers my questions HEENT: Atraumatic Oral: Moist Mucosa Neck: Supple, No JVD Lungs: Clear to auscultation, Normal air movement, No rhonchi Cardiovascular: Regular rate, Regular Rhythm, Normal S1, Normal S2 Abdomen: Bowel Sounds Present, Soft, Non Tender, Non-Distended Extremities: No clubbing, No cyanosis, Edema - +1 edema of LE Skin: No rashes Neurological: Neuro grossly intact Psych/Mental Status: Flat Affect Vital Signs Temp Pulse Resp BP Pulse Ox 97.5 F L 71 20 H 97/46 L 100 04/08/19 05:09 04/08/19 09:16 04/08/19 05:09 04/08/19 05:09 04/08/19 05:09 Oxygen Flow Rate (L/min) 4 Oxygen Delivery Method Nasal Cannula Weight: 89.9 kg Body Mass Index (BMI) 31.9 Finger Stick Blood Glucose 118 Intake and Output for Last 24 Hours 04/06/19 04/07/19 04/08/19 23:59 23:59 23:59 Intake Total 870 / 870 92.55 / 92.55 Balance 870 / 870 92.55 / 92.55 Laboratory Tests Past 24 Hrs 04/07/19 04/07/19 04/07/19 12:05 15:15 18:15 WBC RBC Hgb Hct MCV MCH MCHC RDW Std Deviation RDW Coeff of Scott Plt Count MPV Immature Gran % (Auto) Neut % (Auto) Lymph % (Auto) [place] % (Auto) Eos % (Auto) Baso % (Auto) Absolute Neuts (auto) Absolute Lymphs (auto) Nucleated RBC % Differential Comment Macrocytosis PT INR APTT Activated Clotting Time Sodium Potassium Chloride Carbon Dioxide Anion Gap BUN Creatinine Estim Creat Clear Calc Est GFR (MDRD) Af Amer Est GFR (MDRD) Non-Af BUN/Creatinine Ratio Glucose Calcium Phosphorus Troponin I 0.516 H 0.432 H 0.523 H 04/07/19 04/07/19 04/08/19 18:40 19:40 03:45 WBC 6.9 RBC 2.50 L Hgb 8.6 L Hct 28.6 L MCV 114.4 H MCH 34.4 H MCHC 30.1 L RDW Std Deviation 71.7 H RDW Coeff of Scott 17.2 H Plt Count 99 L MPV 9.9 Immature Gran % (Auto) 0.600 Neut % (Auto) 69.3 Lymph % (Auto) 19.6 [place] % (Auto) 5.8 Eos % (Auto) 4.1 Baso % (Auto) 0.6 Absolute Neuts (auto) 4.8 Absolute Lymphs (auto) 1.35 Nucleated RBC % 0.9 Differential Comment SCANNED Macrocytosis 3+ PT INR APTT Cancelled 32.3 Activated Clotting Time Sodium Potassium Chloride Carbon Dioxide Anion Gap BUN Creatinine Estim Creat Clear Calc Est GFR (MDRD) Af Amer Est GFR (MDRD) Non-Af BUN/Creatinine Ratio Glucose Calcium Phosphorus Troponin I 04/08/19 04/08/19 04/08/19 03:45 03:45 03:45 WBC RBC Hgb Hct MCV MCH MCHC RDW Std Deviation RDW Coeff of Scott Plt Count MPV Immature Gran % (Auto) Neut % (Auto) Lymph % (Auto) [place] % (Auto) Eos % (Auto) Baso % (Auto) Absolute Neuts (auto) Absolute Lymphs (auto) Nucleated RBC % Differential Comment Macrocytosis PT INR APTT 150.4 H* Activated Clotting Time Sodium 140 Potassium 6.0 H* Chloride 100 Carbon Dioxide 25.0 Anion Gap 15 BUN 78 H Creatinine 8.53 H* Estim Creat Clear Calc 7.80 Est GFR (MDRD) Af Amer 7 L Est GFR (MDRD) Non-Af 5 L BUN/Creatinine Ratio 9.1 L Glucose 99 Calcium 8.8 Phosphorus 8.9 H Troponin I 04/08/19 04/08/19 04/08/19 06:45 06:45 06:45 WBC 7.3 RBC 2.57 L Hgb 8.5 L Hct 28.9 L MCV 112.5 H MCH 33.1 H MCHC 29.4 L RDW Std Deviation 70.3 H RDW Coeff of Scott 17.2 H Plt Count 99 L MPV 10.0 Immature Gran % (Auto) Neut % (Auto) Lymph % (Auto) [place] % (Auto) Eos % (Auto) Baso % (Auto) Absolute Neuts (auto) Absolute Lymphs (auto) Nucleated RBC % Differential Comment SCANNED Macrocytosis PT 18.8 H INR 1.6 APTT Activated Clotting Time Sodium 141 Potassium 6.6 H* Chloride 100 Carbon Dioxide 25.0 Anion Gap 16 H BUN 79 H Creatinine 8.59 H* Estim Creat Clear Calc 7.74 Est GFR (MDRD) Af Amer 6 L Est GFR (MDRD) Non-Af 5 L BUN/Creatinine Ratio 9.2 L Glucose 78 Calcium 8.7 Phosphorus Troponin I 04/08/19 08:45 WBC RBC Hgb Hct MCV MCH MCHC RDW Std Deviation RDW Coeff of Scott Plt Count MPV Immature Gran % (Auto) Neut % (Auto) Lymph % (Auto) [place] % (Auto) Eos % (Auto) Baso % (Auto) Absolute Neuts (auto) Absolute Lymphs (auto) Nucleated RBC % Differential Comment Macrocytosis PT INR APTT Activated Clotting Time 202 H Sodium Potassium Chloride Carbon Dioxide Anion Gap BUN Creatinine Estim Creat Clear Calc Est GFR (MDRD) Af Amer Est GFR (MDRD) Non-Af BUN/Creatinine Ratio Glucose Calcium Phosphorus Troponin I POC Glucose 04/08/19 04/07/19 04/07/19 06:53 23:59 21:34 POC Glucose 86 138 H 129 H 04/07/19 04/07/19 04/07/19 18:20 16:20 12:08 POC Glucose 126 H 78 114 H Medical Necessity - Tobacco Use Smoking Status: Former smoker Assessment/Plan All Active Problems (Last Reviewed 02/20/19 @ 20:33 by Pricila Olson) Osteomyelitis (Ruled-out) GI bleed (Acute) Metabolic alkalosis (Acute) Chest pain (Resolved) Hypotension (Resolved) 1. ESRD. HD MWF. HD session today. UF to EDW 2. Anemia. Hgb<10. Will continue ESTUARDO with HD. Monitor Hgb. 3. HTN. BP is controlled. Continue current medications and EDW. 4. SHPT. Not currently on phos binder. P is 8.9. Will start Phoslo TID with meals. 5. Acute coronary syndrome. had cardiac cath this am. management as per cardiology team. Renal team will continue to follow. please call if any question or concern at [phone] Maria Isabel Valdivia MD
[2019-04-08 10:20] LABS: Bedside Glucose 56 mg/dL (70-110)
--- NOTE | 2019-04-08 10:30 | EKG12_ITS ---
Test Reason : AM EKG Blood Pressure : / mmHG Vent. Rate : 073 BPM Atrial Rate : 073 BPM P-R Int : 142 ms QRS Dur : 106 ms QT Int : 460 ms P-R-T Axes : 060 076 226 degrees QTc Int : 506 ms Normal sinus rhythm Poor R- wave progression Nonspecific ST/T wave Abnormality Prolonged QT Abnormal ECG Confirmed by CHEPE BEASLEY, KAITLYNN ([id number]), editorial manager KEVIN WALTERS ([id number]) on 04/10/2019 2:32:55 PM Referred By: YASMINE Confirmed By:KAITLYNN MO MD
[2019-04-08] MEDS: Dextrose 50%-Water 25 GM/50 ML DISP.SYRIN IV (10:35)
[2019-04-08] MEDS: 0.9% Normal Saline 1,000 ML 150 ML IV (10:45)
[2019-04-08 11:00] LABS: Bedside Glucose 53 mg/dL (70-110)
--- NOTE | 2019-04-08 11:00 | CRPHASE1_ITS ---
Patient Communication Former Patient:: Phase I - Pt former Ph I CR on 01/28/19 at [facility]. Risk Factors/Lifestyle Family History: Family History (This Medical Record has been edited. Action required.) Father Diabetes Mother CVA (cerebral vascular accident) Hypertension Diabetes Cancer Cardiac Rehabilitation Info Cardiac Rehabilitation Program Information: Cardiac Rehabilitation is important for patients like you who are recovering from a heart problem. Cardiac rehabilitation programs are recognized as integral to the continued care of the patient with coronary heart disease. The cardiac rehabilitation program is designed to optimize a patient's physical, psychological, and social functioning. Health progressive care unit registered nurse work in cardiac rehabilitation programs and assist you with getting the treatments you need to get stronger and healthier - like exercise, healthy eating habits, and medications. Cardiac rehabilitation has been show to help people with heart problems live longer and have better life enjoyment than people who do not go to cardiac rehabilitation. Please contact the Cardiac Rehabilitation Program at [facility] at in two weeks if you have not heard from them.
[2019-04-08 11:01] LABS: Bedside Glucose 171 mg/dL (70-110)
--- NOTE | 2019-04-08 11:01 | CRPH1.INST_ITS ---
General Education CAD and cardiac anatomy and function:: Patient communicates acknowledgment - Pt former Ph I CR on 01/28/19 at [facility].
--- NOTE | 2019-04-08 11:13 | PN_ITS ---
<Fiorella Gan - Last Filed: 04/08/19 11:37> Subjective: Patient seen and examined. Denies further chest pain. Underwent cath with PCI this morning. Complains of toe pain, wound RN in room. - Physical Exam General: Alert, Oriented x3, Cooperative HEENT: Atraumatic, PERRLA, EOMI, Normocephalic Oral: Dry Mucosa Neck: Supple, No JVD, Negative Carotid Bruits Lungs: Clear to auscultation, Diminished Cardiovascular: Regular rate, Regular Rhythm, Normal S1, Normal S2, No murmurs Abdomen: Bowel Sounds Present, Soft, Non Tender, Non-Distended, - - Colostomy in place. Extremities: No clubbing, No edema, Cyanosis - Multiple distal fingers and toes, gangrenous. Skin: - - Gangrenous distal fingers and toes. Musculoskeletal: No Tenderness to Palpation of Joints or Extremities Neurological: Cranial nerves II-XII grossly intact, Neuro grossly intact Psych/Mental Status: Normal Affect, Appropriate Vital Signs Temp Pulse Resp BP Pulse Ox 97.5 F L 71 20 H 97/46 L 100 04/08/19 05:09 04/08/19 09:16 04/08/19 05:09 04/08/19 05:09 04/08/19 05:09 Oxygen Flow Rate (L/min) 4 Oxygen Delivery Method Nasal Cannula Weight: 198 lb 3.129 oz Body Mass Index (BMI) 31.9 Finger Stick Blood Glucose 118 Intake and Output for Last 24 Hours 04/06/19 04/07/19 04/08/19 23:59 23:59 23:59 Intake Total 870 / 870 92.55 / 92.55 Balance 870 / 870 92.55 / 92.55 Laboratory Tests Past 24 Hrs 04/07/19 04/07/19 04/07/19 12:05 15:15 18:15 WBC RBC Hgb Hct MCV MCH MCHC RDW Std Deviation RDW Coeff of Scott Plt Count MPV Immature Gran % (Auto) Neut % (Auto) Lymph % (Auto) [place] % (Auto) Eos % (Auto) Baso % (Auto) Absolute Neuts (auto) Absolute Lymphs (auto) Nucleated RBC % Differential Comment Macrocytosis PT INR APTT Activated Clotting Time Sodium Potassium Chloride Carbon Dioxide Anion Gap BUN Creatinine Estim Creat Clear Calc Est GFR (MDRD) Af Amer Est GFR (MDRD) Non-Af BUN/Creatinine Ratio Glucose Calcium Phosphorus Troponin I 0.516 H 0.432 H 0.523 H 04/07/19 04/07/19 04/08/19 18:40 19:40 03:45 WBC 6.9 RBC 2.50 L Hgb 8.6 L Hct 28.6 L MCV 114.4 H MCH 34.4 H MCHC 30.1 L RDW Std Deviation 71.7 H RDW Coeff of Scott 17.2 H Plt Count 99 L MPV 9.9 Immature Gran % (Auto) 0.600 Neut % (Auto) 69.3 Lymph % (Auto) 19.6 [place] % (Auto) 5.8 Eos % (Auto) 4.1 Baso % (Auto) 0.6 Absolute Neuts (auto) 4.8 Absolute Lymphs (auto) 1.35 Nucleated RBC % 0.9 Differential Comment SCANNED Macrocytosis 3+ PT INR APTT Cancelled 32.3 Activated Clotting Time Sodium Potassium Chloride Carbon Dioxide Anion Gap BUN Creatinine Estim Creat Clear Calc Est GFR (MDRD) Af Amer Est GFR (MDRD) Non-Af BUN/Creatinine Ratio Glucose Calcium Phosphorus Troponin I 04/08/19 04/08/19 04/08/19 03:45 03:45 03:45 WBC RBC Hgb Hct MCV MCH MCHC RDW Std Deviation RDW Coeff of Scott Plt Count MPV Immature Gran % (Auto) Neut % (Auto) Lymph % (Auto) [place] % (Auto) Eos % (Auto) Baso % (Auto) Absolute Neuts (auto) Absolute Lymphs (auto) Nucleated RBC % Differential Comment Macrocytosis PT INR APTT 150.4 H* Activated Clotting Time Sodium 140 Potassium 6.0 H* Chloride 100 Carbon Dioxide 25.0 Anion Gap 15 BUN 78 H Creatinine 8.53 H* Estim Creat Clear Calc 7.80 Est GFR (MDRD) Af Amer 7 L Est GFR (MDRD) Non-Af 5 L BUN/Creatinine Ratio 9.1 L Glucose 99 Calcium 8.8 Phosphorus 8.9 H Troponin I 04/08/19 04/08/19 04/08/19 06:45 06:45 06:45 WBC 7.3 RBC 2.57 L Hgb 8.5 L Hct 28.9 L MCV 112.5 H MCH 33.1 H MCHC 29.4 L RDW Std Deviation 70.3 H RDW Coeff of Scott 17.2 H Plt Count 99 L MPV 10.0 Immature Gran % (Auto) Neut % (Auto) Lymph % (Auto) [place] % (Auto) Eos % (Auto) Baso % (Auto) Absolute Neuts (auto) Absolute Lymphs (auto) Nucleated RBC % Differential Comment SCANNED Macrocytosis PT 18.8 H INR 1.6 APTT Activated Clotting Time Sodium 141 Potassium 6.6 H* Chloride 100 Carbon Dioxide 25.0 Anion Gap 16 H BUN 79 H Creatinine 8.59 H* Estim Creat Clear Calc 7.74 Est GFR (MDRD) Af Amer 6 L Est GFR (MDRD) Non-Af 5 L BUN/Creatinine Ratio 9.2 L Glucose 78 Calcium 8.7 Phosphorus Troponin I 04/08/19 08:45 WBC RBC Hgb Hct MCV MCH MCHC RDW Std Deviation RDW Coeff of Scott Plt Count MPV Immature Gran % (Auto) Neut % (Auto) Lymph % (Auto) [place] % (Auto) Eos % (Auto) Baso % (Auto) Absolute Neuts (auto) Absolute Lymphs (auto) Nucleated RBC % Differential Comment Macrocytosis PT INR APTT Activated Clotting Time 202 H Sodium Potassium Chloride Carbon Dioxide Anion Gap BUN Creatinine Estim Creat Clear Calc Est GFR (MDRD) Af Amer Est GFR (MDRD) Non-Af BUN/Creatinine Ratio Glucose Calcium Phosphorus Troponin I POC Glucose 04/08/19 04/08/19 04/08/19 10:54 10:28 09:55 POC Glucose 171 H 53 L 56 L 04/08/19 04/07/19 04/07/19 06:53 23:59 21:34 POC Glucose 86 138 H 129 H 04/07/19 04/07/19 04/07/19 18:20 16:20 12:08 POC Glucose 126 H 78 114 H Medical Necessity - Tobacco Use Smoking Status: Former smoker Assessment/Plan All Active Problems (Last Reviewed 02/20/19 @ 20:33 by Pricila Olson) Osteomyelitis (Ruled-out) GI bleed (Acute) Metabolic alkalosis (Acute) Chest pain (Resolved) Hypotension (Resolved) 1. Non-STEMI/CAD with history of multiple stents-cardiology consulted. Patient underwent cardiac catheterization 04/08/2019 with PCI/PTCA to mid LCx ISR. LVEF 10%. EF during recent cath 02/08 25%. Echo ordered. Continue aspirin, statin, plavix, carvedilol, losartan, nitrate. 2. End-stage renal disease on hemodialysis-nephrology consulted. Continue hemodialysis regimen. 3. Chronic systolic and diastolic CHF-echocardiogram January 2019 with EF 35%. Repeat echocardiogram pending. Cath was significantly reduced EF as noted above. No acute CHF. 4. 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 Insulin currently on hold. Accu-Cheks before meals at bedtime. Continue home insulin regimen when blood glucose stable. 5. Chronic hypoxic respiratory failure secondary to chronic COPD-at baseline. Continue supplement oxygen to maintain O2 at or above 90%. 6. GABRIEL 7. Hypertension-stable, continue home amlodipine, carvedilol, lisinopril, iso sorbide regimen. 8. Hyperlipidemia-continue statin. 9. Morbid obesity-encouraged diet lifestyle modifications. 10. Anemia of chronic disease-stable, at baseline. 11. Anxiety/depression-continue home Xanax, fluoxetine regimen. 12. Tobacco dependence-encouraged smoking cessation. 13. Status post colostomy due to history of chronic wounds which have since healed 14. Peripheral arterial disease-gangrenous distal right fourth finger as well as multiple toes. Scheduled for outpatient vascular surgery. On augmentin and doxycycline which was started as outpatient. Wound RN consult. DVT prophylaxis-heparin subcu This patient was seen by SATNAM Mcgraw under the supervision of Dr. Kauffman. <Sergio Kauffman F - Last Filed: 04/08/19 15:45> - Physical Exam Vital Signs Temp Pulse Resp BP Pulse Ox 97.2 F L 61 17 124/62 H 92 04/08/19 12:00 04/08/19 14:00 04/08/19 14:00 04/08/19 14:00 04/08/19 14:00 Oxygen Flow Rate (L/min) 3 Oxygen Delivery Method Nasal Cannula Weight: 198 lb 3.129 oz Body Mass Index (BMI) 31.9 Finger Stick Blood Glucose 118 Intake and Output for Last 24 Hours 04/06/19 04/07/19 04/08/19 23:59 23:59 23:59 Intake Total 870 / 870 1069.80 / 1069.80 Balance 870 / 870 1069.80 / 1069.80 Laboratory Tests Past 24 Hrs 04/07/19 04/07/19 04/07/19 15:15 18:15 18:40 WBC RBC Hgb Hct MCV MCH MCHC RDW Std Deviation RDW Coeff of Scott Plt Count MPV Immature Gran % (Auto) Neut % (Auto) Lymph % (Auto) [place] % (Auto) Eos % (Auto) Baso % (Auto) Absolute Neuts (auto) Absolute Lymphs (auto) Nucleated RBC % Differential Comment Macrocytosis PT INR APTT Cancelled Activated Clotting Time Sodium Potassium Chloride Carbon Dioxide Anion Gap BUN Creatinine Estim Creat Clear Calc Est GFR (MDRD) Af Amer Est GFR (MDRD) Non-Af BUN/Creatinine Ratio Glucose Calcium Phosphorus Troponin I 0.432 H 0.523 H 04/07/19 04/08/19 04/08/19 19:40 03:45 03:45 WBC 6.9 RBC 2.50 L Hgb 8.6 L Hct 28.6 L MCV 114.4 H MCH 34.4 H MCHC 30.1 L RDW Std Deviation 71.7 H RDW Coeff of Scott 17.2 H Plt Count 99 L MPV 9.9 Immature Gran % (Auto) 0.600 Neut % (Auto) 69.3 Lymph % (Auto) 19.6 [place] % (Auto) 5.8 Eos % (Auto) 4.1 Baso % (Auto) 0.6 Absolute Neuts (auto) 4.8 Absolute Lymphs (auto) 1.35 Nucleated RBC % 0.9 Differential Comment SCANNED Macrocytosis 3+ PT INR APTT 32.3 Activated Clotting Time Sodium 140 Potassium 6.0 H* Chloride 100 Carbon Dioxide 25.0 Anion Gap 15 BUN 78 H Creatinine 8.53 H* Estim Creat Clear Calc 7.80 Est GFR (MDRD) Af Amer 7 L Est GFR (MDRD) Non-Af 5 L BUN/Creatinine Ratio 9.1 L Glucose 99 Calcium 8.8 Phosphorus Troponin I 04/08/19 04/08/19 04/08/19 03:45 03:45 06:45 WBC RBC Hgb Hct MCV MCH MCHC RDW Std Deviation RDW Coeff of Scott Plt Count MPV Immature Gran % (Auto) Neut % (Auto) Lymph % (Auto) [place] % (Auto) Eos % (Auto) Baso % (Auto) Absolute Neuts (auto) Absolute Lymphs (auto) Nucleated RBC % Differential Comment Macrocytosis PT INR APTT 150.4 H* Activated Clotting Time Sodium 141 Potassium 6.6 H* Chloride 100 Carbon Dioxide 25.0 Anion Gap 16 H BUN 79 H Creatinine 8.59 H* Estim Creat Clear Calc 7.74 Est GFR (MDRD) Af Amer 6 L Est GFR (MDRD) Non-Af 5 L BUN/Creatinine Ratio 9.2 L Glucose 78 Calcium 8.7 Phosphorus 8.9 H Troponin I 04/08/19 04/08/19 04/08/19 06:45 06:45 08:45 WBC 7.3 RBC 2.57 L Hgb 8.5 L Hct 28.9 L MCV 112.5 H MCH 33.1 H MCHC 29.4 L RDW Std Deviation 70.3 H RDW Coeff of Scott 17.2 H Plt Count 99 L MPV 10.0 Immature Gran % (Auto) Neut % (Auto) Lymph % (Auto) [place] % (Auto) Eos % (Auto) Baso % (Auto) Absolute Neuts (auto) Absolute Lymphs (auto) Nucleated RBC % Differential Comment SCANNED Macrocytosis PT 18.8 H INR 1.6 APTT Activated Clotting Time 202 H Sodium Potassium Chloride Carbon Dioxide Anion Gap BUN Creatinine Estim Creat Clear Calc Est GFR (MDRD) Af Amer Est GFR (MDRD) Non-Af BUN/Creatinine Ratio Glucose Calcium Phosphorus Troponin I 04/08/19 11:08 WBC RBC Hgb Hct MCV MCH MCHC RDW Std Deviation RDW Coeff of Scott Plt Count MPV Immature Gran % (Auto) Neut % (Auto) Lymph % (Auto) [place] % (Auto) Eos % (Auto) Baso % (Auto) Absolute Neuts (auto) Absolute Lymphs (auto) Nucleated RBC % Differential Comment Macrocytosis PT INR APTT Activated Clotting Time 142 H Sodium Potassium Chloride Carbon Dioxide Anion Gap BUN Creatinine Estim Creat Clear Calc Est GFR (MDRD) Af Amer Est GFR (MDRD) Non-Af BUN/Creatinine Ratio Glucose Calcium Phosphorus Troponin I POC Glucose 04/08/19 04/08/19 04/08/19 11:49 10:54 10:28 POC Glucose 145 H 171 H 53 L 04/08/19 04/08/19 04/07/19 09:55 06:53 23:59 POC Glucose 56 L 86 138 H 04/07/19 04/07/19 04/07/19 21:34 18:20 16:20 POC Glucose 129 H 126 H 78 Code Visit Addendum: Dr. Kauffman I personally examined the patient and reviewed the chart. I agree with the above. 43-year-old female with a previous history of CAD status post stent presenting with chest pain from [facility]. Troponin was elevated to around 0.5 and she was taken for cardiac catheter necessitating stent, however during her procedure was found that her EF was 10%. In January 2019 and an EF of 35%. She did undergo dialysis today after the procedure given her electrolyte derangements and the contrast load. 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 Appreciate cardiology's assessment and management of this complicated case. Inpatient E&M: 12517 Subs Hosp L2
[2019-04-08 11:21] LABS: ACT Activated Clotting Time 142 sec (74-137)
--- NOTE | 2019-04-08 11:35 | NURSING ---
Addendum entered by Jaclyn Alas 04/08/19 11:38: right great toe Original Note: wound photo:
--- NOTE | 2019-04-08 11:37 | NURSING ---
wound photo: right index and ring fingers
--- NOTE | 2019-04-08 11:50 | CASEMGMT ---
RN CM Assessment Presentation: Heart Cath, PCI: Lcx, RCA. Hx of diverting colostomy Intro role of CM and purpose of RN CM assessment. Pt is sleepy, but participated in general questions. Demographics, PCP and Pharmacy verified. Attempted to call SO to discuss care needs at home, but # given has been disconnected. Attempted to verify # with pt but she could not remember. Call to patient's Mother who stated pt uses prepay cell phone, and often does not have minutes. Pt has wounds on feet and hand. Wound nurse consult ordered. PCP: Dr. Foy Specialists: Dr. Lopez, Dr. Zhang, Dr. 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 Per PT notes, pt is generally independent with ADL/s Transportation: SO drives, pt needed transportation home last admission. DME: manual WC, Rollator, Wheeled Walker. Home oxygen through [employer]. Concentrator, portability, Blood glucose monitoring equipment, ramp. HHC: [facility], Nursing Patient DC goals: Home on discharge DC PLAN: anticipate pt will return home with [facility] nursing. May benefit from PT/OT to be added. Pt being seen by wound care nurse. CM will continue to follow and assist with dc planning needs. Colin JOVEL RN ACM
[2019-04-08 11:56] LABS: Bedside Glucose 145 mg/dL (70-110)
[2019-04-08] MEDS: hydrOXYzine 10 MG Tablet PO (15:38)
[2019-04-08 15:46] LABS: Bedside Glucose 68 mg/dL (70-110)
[2019-04-08] MEDS: HYDROcodone Bitartrate/Apap 5/325 Tablet PO ×2 (16:29→22:34)
[2019-04-08 16:36] LABS: Bedside Glucose 118 mg/dL (70-110)
--- NOTE | 2019-04-08 17:36 | DIALYSIS ---
Hemodialysis x 2.5 hours complete. UF 4545 mL fluid removal. Patient refused to complete the 3.5 hours as ordered. Patient stated she cannot complete the treatment due to being in severe pain, and that she has too many other things going on at this time. Patient was restless and tearful the last hour of treatment. There was excessive bleeding at AVF needle sites when needles removed. Surgicel was used to clot sites. No bleeding present currently, surgicel, guaze, and tape in place,
[2019-04-08] MEDS: Morphine 2 MG/ML Syringe IV (17:59)
--- NOTE | 2019-04-08 18:05 | NURSING ---
1805 HR 75 R 20 BP 119/27 SpO2 94 3lnc 1810 HR 75 R 14 BP 124/45 SpO2 97 3lnc 1815 HR 75 R 17 BP 106/53 SpO2 97 3lnc 1820 HR 73 R 15 BP SpO2 96 3lnc 1825 HR 74 R 14 BP 135/58 SpO2 97 3lnc, hemostasis, R DP audible w/doppler as before. DSD applied. no hematoma/oozing/bruit.
[2019-04-08] MEDS: Calcitriol 0.25 MCG Capsule 2 MCG PO (20:24)
[2019-04-08] MEDS: Acetaminophen 325 MG Tablet 650 MG PO (20:24)
[2019-04-08] MEDS: Doxycycline 100 MG CAPSULE PO (20:25)
[2019-04-08] MEDS: FLUoxetine 20 MG Capsule 40 MG PO (20:25)
[2019-04-08] MEDS: Amox/Clavulanate 500 MG Tablet PO (20:26)
[2019-04-08] MEDS: Atorvastatin Calcium 10 MG Tablet PO (20:28)
[2019-04-08] MEDS: Sodium Bicarbonate 650 MG Tablet PO (20:49)
[2019-04-08] MEDS: Pantoprazole Sodium 20 MG Tablet PO (20:57)
[2019-04-08] MEDS: SUCROFERRIC OXYHYDROXIDE 500 MG TAB.CHEW 1500 MG PO (21:06)
[2019-04-08 21:16] LABS: Bedside Glucose 121 mg/dL (70-110)
[2019-04-09] VITALS (21 sets, daily range): BP systolic 90–120; BP diastolic 28–62; PULSE 70–88; RESP 14–24; TEMP 36.3–37; O2SAT 93–100
--- NOTE | 2019-04-09 00:41 | NURSING ---
Pt off bedrest at this time, she did not want to get out of bed at this time.
[2019-04-09 01:41] LABS: Bedside Glucose 139 mg/dL (70-110)
[2019-04-09 03:53] LABS: Hemoglobin 8.4 g/dL (12.0-15.0); Mean Corpuscular Hgb 34.3 pg (27.0-32.0); Mean Corpuscular Volume 114.3 fL (81-99); Mean Platelet Vol. 9.2 fl (6.2-12.0); POSITIVE MORPHOLOGY YES; Platelet Count 112 K/mm3 (150-450); RBC Distribution Width CV 17.2 % (11.6-14.6); RBC Distribution Width SD 71.7 fl (35.1-43.9); Red Blood Count 2.45 M/mm3 (4.2-5.4); White Blood Count 8.2 K/mm3 (4.4-11.0)
[2019-04-09 04:21] LABS: ALB/GLOB Ratio 0.6 RATIO (0.9-2.4); AST(SGOT) 28 U/L (15-37); Alanine Aminotransfer ALT/SGPT 31 U/L (13-56); Albumin, Serum 2.4 g/dL (3.2-5.0); Alkaline Phosphatase 122 U/L (45-117); Anion Gap 11 (5-15); BUN 58 mg/dL (7-18); BUN/Creat Ratio 8.6 RATIO (10-20); Chloride 99 mmol/L (98-107); Creatinine, Serum 6.76 mg/dL (0.55-1.02); EST Glomerular Filtration Rate 7 mL/min (>60); Est Glom Filt Rate - Afr Amer 9 mL/min (>60); Estimated Creatinine Clearance 9.84 ml/min; Globulin 4.2 g/dL (2.2-4.2); Glucose 149 mg/dL (74-106); Potassium 4.3 mmol/L (3.5-5.1); Protein, Total 6.6 g/dL (6.4-8.2); Sodium Level 140 mmol/L (136-145)
[2019-04-09 04:29] LABS: Scan Indicated on CBC? Y/N YES- FLAGS NOTED
[2019-04-09 05:00] LABS: Differential Comment SCANNED
[2019-04-09] MEDS: 0.9% NaCl Peripheral Flush Adult/Peds IV ×2 (05:48→08:04)
[2019-04-09] MEDS: Ondansetron 4 MG/2 ML Vial IV ×3 (05:48→22:29)
[2019-04-09 06:30] LABS: Bedside Glucose 174 mg/dL (70-110)
[2019-04-09] MEDS: Insulin Lispro 100 UNIT/ML INSULN.PEN SC ×3 (07:55→22:30)
[2019-04-09] MEDS: Insulin Lispro 100 UNIT/ML INSULN.PEN 10 UNIT SC (07:55)
[2019-04-09] MEDS: SUCROFERRIC OXYHYDROXIDE 500 MG TAB.CHEW 1500 MG PO ×3 (07:58→16:48)
[2019-04-09] MEDS: Aspirin 81 MG TAB.CHEW PO (08:00)
--- NOTE | 2019-04-09 08:39 | PCM.PN.CARD ---
Subjectve: Patient seen and examined, no 24-hour events. Was able to complete hemodialysis and remove 4.5 L of fluid despite hypotension. No chest pain. Right groin is clean/dry/intact. EKG shows normal sinus rhythm with nonspecific inferior lateral ST segment depression. Hemoglobin stable. Echo is pending. Right great toe gangrene bandage, no erythema. Objective: Vital Signs Temp Pulse Resp BP Pulse Ox 98.1 F 77 16 93/35 L 93 04/09/19 00:00 04/09/19 07:00 04/09/19 07:00 04/09/19 07:00 04/09/19 07:00 Oxygen Flow Rate (L/min) 3 Oxygen Delivery Method Nasal Cannula Weight: 197 lb 1.492 oz Body Mass Index (BMI) 31.9 Finger Stick Blood Glucose 118 Intake and Output for Last 24 Hours 04/07/19 04/08/19 04/09/19 23:59 23:59 23:59 Intake Total 870 / 870 2444.30 / 2444.30 200 / 200 Output Total 4545 / 4545 Balance 870 / 870 -2100.70 / -2100.70 200 / 200 General: Awake, Alert, Oriented x 3 HEENT: PERRL, EOMI, Sclera Non Icteric Neck: Supple, Good ROM, No Lymph Node Enlargement Lungs: Clear to auscultation Cardiovascular: Regular Rhythm, Normal S1, Normal S2, No Murmurs, No Rubs, No Gallops Vascular: No Carotid Bruits, Normal Femoral Pulses, Normal Radial Pulses, Normal Dorsalis Pedal Pulse, Normal Posterior Tibial Pulses Abdomen: Bowel Sounds Present, Soft, Non Tender, No HSM, No Organomegaly Extremities: No Cyanosis, No Clubbing, No edema Neurological: No Focal Motor or Sensory Deficit 04/09/19 03:45: WBC 8.2, RBC 2.45 L, Hgb 8.4 L, Hct 28.0 L, MCV 114.3 H, MCH 34.3 H, MCHC 30.0 L, Plt Count 112 L, MPV 9.2 04/09/19 03:45: Sodium 140, Potassium 4.3, Chloride 99, Carbon Dioxide 30.0, Anion Gap 11, BUN 58 H, Creatinine 6.76 H, Est GFR (MDRD) Af Amer 9 L, Est GFR (MDRD) Non-Af 7 L, BUN/Creatinine Ratio 8.6 L, Glucose 149 H, Calcium 8.0 L, Total Bilirubin 0.50 Rhythm: EKG: ECHO: Stress Test: Cardiac Cath: PCI: CT Surgery: Holter monitor: EPS: PPM: CXR: Chest CT Scan: Medical Necessity - Tobacco Use Smoking Status: Former smoker Assessment/Plan 1. Coronary artery disease: The patient underwent repeat catheterization for non-ST elevation myocardial infarction and was found to have aggressive in-stent restenosis of her mid left circumflex small 2.25 mm stent that was recently placed in January 2019. The patient underwent balloon angioplasty only of this in-stent restenosis and no additional stenting was performed given the small nature of the stent. We attempted to pass a angioscope balloon but was unable to do so due to the curvature of the vessel. In addition the patient has had progression of mid PDA atherosclerosis, but she had no anginal symptoms perfusing the dialysis machine yesterday. And attempt to avoid additional angioplasty and stenting while she is convalescing from an infectious process and due to lack of angina, we will hold off on intervention of this vessel at this time. I recommend continuing her baby aspirin, Plavix, and continue to keep her hemoglobin above 8.0. Once the patient's gangrene has resolved, we then can consider the option of stress testing to evaluate the inferior wall for ischemia. 2. Hypertension: The patient's blood pressure has been hypotensive although this may be problematic given the patient's probable subclavian stenosis on the right side making blood pressure is inaccurate. The patient has a week right radial pulse and apparently they have been eating Doppler to get the blood pressure. I recommended the patient be seen by Dr. Jordin Cruz, cardiovascular surgeon tomorrow, 04/10/2019 to evaluate for possible subclavian stenosis and the need for possible stenting. 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 We have held some of her antihypertensive medications, and will continue to do so until her infectious process has resolved. 3. Hypercholesterolemia: Continue antilipid therapy. 4. Toe gangrene: Patient is being treated with antibiotics for toe gangrene, and blood cultures were sent yesterday. Repeat echocardiogram is pending to assess for possible endocarditis. Continue antibiotic therapy. Patient may require infectious disease consultation or evaluation for osteomyelitis of her great toe. 5. Thank you very much for the opportunity to participate in the cardiac care of your patient. Patient may be either transferred to PCU, or reduce status at stepdown in the ICU. Code Visit Inpatient E&M: 14010 Subs Hosp L2
[2019-04-09] MEDS: Acetaminophen 325 MG Tablet 650 MG PO (09:32)
[2019-04-09] MEDS: Clopidogrel Bisulfate 75 MG Tablet PO (09:33)
[2019-04-09] MEDS: Sodium Bicarbonate 650 MG Tablet PO ×4 (09:33→22:29)
[2019-04-09] MEDS: Doxycycline 100 MG CAPSULE PO ×2 (09:33→22:29)
[2019-04-09] MEDS: Losartan Potassium 25 MG Tablet 12.5 MG PO (09:33)
[2019-04-09] MEDS: Pantoprazole Sodium 20 MG Tablet PO ×2 (09:34→22:35)
[2019-04-09] MEDS: FLUoxetine 20 MG Capsule 40 MG PO (09:34)
--- NOTE | 2019-04-09 10:00 | EKG12_ITS ---
Test Reason : POST PCI Blood Pressure : / mmHG Vent. Rate : 070 BPM Atrial Rate : 070 BPM P-R Int : 158 ms QRS Dur : 110 ms QT Int : 482 ms P-R-T Axes : 064 078 192 degrees QTc Int : 520 ms Normal sinus rhythm Anterior infarct , age undetermined , cannot be excluded Prolonged QT Abnormal ECG Confirmed by CHEPE BEASLEY, KAITLYNN ([id number]), news copy editor KEVIN WALTERS ([id number]) on 04/10/2019 2:34:02 PM Referred By: YASMINE Confirmed By:KAITLYNN MO MD
--- NOTE | 2019-04-09 10:26 | PCM.PN.REN ---
Subjective: Pt is complaining of right hand index finger pain. No chest pain No SOB. No nausea No vomiting - Physical Exam General: Alert, Oriented x3 HEENT: Atraumatic Oral: Moist Mucosa Neck: Supple, No JVD Lungs: Clear to auscultation, Normal air movement, No rhonchi, No wheeze Cardiovascular: Regular rate, Regular Rhythm, Normal S1, Normal S2 Abdomen: Bowel Sounds Present, Soft, Non Tender Extremities: No edema Skin: No rashes Musculoskeletal: No Muscle Wasting Lymphatic: No Cervical, Supraclavicular, or Inguinal Adenopathy Neurological: Cranial nerves II-XII grossly intact, Neuro grossly intact Psych/Mental Status: Appropriate Vital Signs Temp Pulse Resp BP Pulse Ox 98.1 F 76 20 H 113/61 95 04/09/19 00:00 04/09/19 09:00 04/09/19 09:00 04/09/19 09:00 04/09/19 09:00 Oxygen Flow Rate (L/min) 3 Oxygen Delivery Method Nasal Cannula Weight: 89.4 kg Body Mass Index (BMI) 31.9 Finger Stick Blood Glucose 118 Intake and Output for Last 24 Hours 04/07/19 04/08/19 04/09/19 23:59 23:59 23:59 Intake Total 870 / 870 2444.30 / 2444.30 200 / 200 Output Total 4545 / 4545 Balance 870 / 870 -2100.70 / -2100.70 200 / 200 Laboratory Tests Past 24 Hrs 04/08/19 04/09/19 04/09/19 11:08 03:45 03:45 WBC 8.2 RBC 2.45 L Hgb 8.4 L Hct 28.0 L MCV 114.3 H MCH 34.3 H MCHC 30.0 L RDW Std Deviation 71.7 H RDW Coeff of Scott 17.2 H Plt Count 112 L MPV 9.2 Differential Comment SCANNED Activated Clotting Time 142 H Sodium 140 Potassium 4.3 Chloride 99 Carbon Dioxide 30.0 Anion Gap 11 BUN 58 H Creatinine 6.76 H Estim Creat Clear Calc 9.84 Est GFR (MDRD) Af Amer 9 L Est GFR (MDRD) Non-Af 7 L BUN/Creatinine Ratio 8.6 L Glucose 149 H Calcium 8.0 L Total Bilirubin 0.50 AST 28 ALT 31 Alkaline Phosphatase 122 H Total Protein 6.6 Albumin 2.4 L Globulin 4.2 Albumin/Globulin Ratio 0.6 L POC Glucose 04/09/19 04/09/19 04/08/19 06:26 01:36 21:06 POC Glucose 174 H 139 H 121 H 04/08/19 04/08/19 04/08/19 16:27 15:43 11:49 POC Glucose 118 H 68 L 145 H 04/08/19 04/08/19 10:54 10:28 POC Glucose 171 H 53 L Medical Necessity - Tobacco Use Smoking Status: Former smoker Assessment/Plan All Active Problems (Last Reviewed 02/20/19 @ 20:33 by Pricila Olson) Osteomyelitis (Ruled-out) GI bleed (Acute) Metabolic alkalosis (Acute) Chest pain (Resolved) Hypotension (Resolved) 1. ESRD on F HD schedule . Pt goes to [facility] HD unit. Last HD session 04/08 with 4.5 L UF No need for HD session today. next HD session tomorrow 2. Anemia. Hgb<10. Will resume ESTUARDO with HD session 3. HTN. BP is controlled. Continue current medications and EDW. 4- Hyperkalemia: Resolved with HD 5. SHPT. On Phoslo TID with meals which was started on 04/08. Monitor P and Ca levels. 6-. Acute coronary syndrome. 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 vascular surgeon to see the patient tomorrow Renal team will continue to follow. please call if any question or concern at [phone] Maria Isabel Valdivia MD
--- NOTE | 2019-04-09 11:23 | CASEMGMT ---
Social Work Consult: Resources/Support Living Situation: Patient lives with significant other and daughter. Relationship/Social History: Patient in a 4 year relationship with Mark Carrillo. Patient has a daughter in the 4th grade. Patient mother is living and a support for patient. Support/Resources: [employer] for home oxygen, [employer] medical equipment for colostomy supplies. Mental Health treatment/hx: Patient denies any mental health diagnosis or treatment history. Patient stating to have had a counseling appointment set up in the past but was unable to make appointment. Transportation: Mark is patient main source for transportation. Substance Abuse hx: Denies Abuse Hx: Denies Risk to self/others: Denies any suicidal or homicidal thoughts/plans. Assessment: Met with patient in room. Introduced self as well as health and social care teacher role. Patient agreeable to meeting with this health and social care teacher. Patient presenting with a positive affect. Patient responding and initiating conversation with this health and social care teacher. Patient stating to be currently working with the waiver program on establishing aides in the home. Per RN CM note Gilda Rizzo is leather case finisher following patient case and plans to follow up with patient. Patient stating to be mainly wheelchair bound due to pain. 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 Patient declining for this health and social care teacher to make referrals but open to information. Patient stating that patient PCP has recommended for patient to allow for more time to heal before consulting with patient management. Patient stating that main concern is for patient daughter. Patient stating that patient daughter is not doing well with patient poor health. This health and social care teacher able to provide patient with information on the [employer] in [place] and how to get involved. Patient is admitting to this health and social care teacher to get down as times. This health and social care teacher encouraging patient to set up with the counseling center a intake appointment to see if counseling might be a good fit for patient, patient voicing understanding but again not agreeable to this health and social care teacher setting up appointment. Patient asking about if Harriet would be able to come to assess patient for a portable oxygen conserving device, telephone call to Jenny Larios. Jenny stating that assessment needs to be completed on an outpatient basis, updated patient as to information. Patient stating to mainly cope by drawling or coloring, but this has been limited lately due to pain in patient hands. Active listening and support provide. Patient stating to not have a cell phone and to be unable to afford a phone plan. This health and social care teacher provided patient with information on [employer] where patient can apply for a phone. This health and social care teacher did attempt to assist patient in obtaining phone but an e-mail address is required and patient is stating to have none. Patient planning to sit down with patient mother to complete application for phone as patient mother does have an e-mail address. Patient thanking this health and social care teacher for support and information. Interventions: Social Work assessment Provided patient with phone numbers and information for [facility], [employer], [employer], [employer], Palliative Care, and pain management. Social work to follow if any further needs arise. MALLORY SCHUMACHER updated on social work assessment. Ko P[place] MSW, [place]
[2019-04-09] MEDS: Amox/Clavulanate 500 MG Tablet PO (12:05)
--- NOTE | 2019-04-09 12:10 | NURSING ---
This nurse walked into patients room and patient c/o to this nurse that she was not feeling well, tired and weak like her blood sugar was dropping. This nurse checked the patients blood sugar and resulted 106, then the patient stated that she had already ate lifesavers. This nurse informed that patient that she needs to notify the nurse when she doesn't feel well because we can give her medication stronger than lifesavers to increase blood sugar. Patient agreed to do so, lunch given to patient and insulin held. CRULLER MAKER notified, see charting. Will continue to monitor.
[2019-04-09 12:50] LABS: Bedside Glucose 106 mg/dL (70-110)
--- NOTE | 2019-04-09 14:42 | PN_ITS ---
<Fiorella Gan - Last Filed: 04/09/19 14:55> Subjective: Patient seen and examined. States she is not feeling well. Complains of headache and general malaise. Denies chest pain. - Physical Exam General: Alert, Oriented x3, Cooperative HEENT: Atraumatic, PERRLA, EOMI, Normocephalic Oral: Dry Mucosa Neck: Supple, No JVD, Negative Carotid Bruits Lungs: Clear to auscultation, Diminished Cardiovascular: Regular rate, Regular Rhythm, Normal S1, Normal S2, No murmurs Abdomen: Bowel Sounds Present, Soft, Non Tender, Non-Distended Extremities: No edema, Capillary Refill Less than 3 Seconds Skin: - - Gangrenous distal fingers and toes. Musculoskeletal: No Tenderness to Palpation of Joints or Extremities Neurological: Cranial nerves II-XII grossly intact, Neuro grossly intact Psych/Mental Status: Normal Affect, Appropriate Vital Signs Temp Pulse Resp BP Pulse Ox 98.3 F 81 19 H 96/58 L 98 04/09/19 13:00 04/09/19 13:00 04/09/19 13:00 04/09/19 13:00 04/09/19 13:00 Oxygen Flow Rate (L/min) 3 Oxygen Delivery Method Nasal Cannula Weight: 197 lb 1.492 oz Body Mass Index (BMI) 31.9 Finger Stick Blood Glucose 118 Intake and Output for Last 24 Hours 04/07/19 04/08/19 04/09/19 23:59 23:59 23:59 Intake Total 870 / 870 2444.30 / 2444.30 500 / 500 Output Total 4545 / 4545 Balance 870 / 870 -2100.70 / -2100.70 500 / 500 Laboratory Tests Past 24 Hrs 04/09/19 04/09/19 03:45 03:45 WBC 8.2 RBC 2.45 L Hgb 8.4 L Hct 28.0 L MCV 114.3 H MCH 34.3 H MCHC 30.0 L RDW Std Deviation 71.7 H RDW Coeff of Scott 17.2 H Plt Count 112 L MPV 9.2 Differential Comment SCANNED Sodium 140 Potassium 4.3 Chloride 99 Carbon Dioxide 30.0 Anion Gap 11 BUN 58 H Creatinine 6.76 H Estim Creat Clear Calc 9.84 Est GFR (MDRD) Af Amer 9 L Est GFR (MDRD) Non-Af 7 L BUN/Creatinine Ratio 8.6 L Glucose 149 H Calcium 8.0 L Total Bilirubin 0.50 AST 28 ALT 31 Alkaline Phosphatase 122 H Total Protein 6.6 Albumin 2.4 L Globulin 4.2 Albumin/Globulin Ratio 0.6 L POC Glucose 04/09/19 04/09/19 04/09/19 12:01 06:26 01:36 POC Glucose 106 174 H 139 H 04/08/19 04/08/19 04/08/19 21:06 16:27 15:43 POC Glucose 121 H 118 H 68 L Medical Necessity - Tobacco Use Smoking Status: Former smoker Assessment/Plan 1. Non-STEMI/CAD with history of multiple stents-cardiology consulted. Patient underwent cardiac catheterization 04/08/2019 with PCI/PTCA to mid LCx ISR. LVEF 10%. EF during recent cath 02/08 25%. Continue aspirin, statin, plavix, carvedilol, losartan, nitrate. 2. End-stage renal disease on hemodialysis-nephrology consulted. Continue hemodialysis regimen. 3. Chronic systolic and diastolic CHF-echocardiogram January 2019 with EF 35%. Repeat echocardiogram demonstrates an EF of 25%, stage II diastolic dysfunction. No acute CHF. 4. 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 Intermittent hypoglycemia. Scheduled mealtime Humalog discontinued. Continue sliding scale insulin. 5. Chronic hypoxic respiratory failure secondary to chronic COPD-at baseline. Continue supplement oxygen to maintain O2 at or above 90%. 6. GABRIEL 7. Hypertension-stable, continue home amlodipine, carvedilol, lisinopril, isosorbide regimen. 8. Hyperlipidemia-continue statin. 9. Morbid obesity-encouraged diet lifestyle modifications. 10. Anemia of chronic disease-stable, at baseline. 11. Anxiety/depression-continue home Xanax, fluoxetine regimen. 12. Tobacco dependence-encouraged smoking cessation. 13. Status post colostomy due to history of chronic wounds which have since healed 14. Peripheral arterial disease-gangrenous distal right fourth finger as well as multiple toes. On augmentin and doxycycline which was started as outpatient. Wound RN consult. Vascular surgery consulted. Will consult ID as well. DVT prophylaxis-heparin subcu This patient was seen by SATNAM Mcgraw under the supervision of Dr. Soler. <Francois Soler E - Last Filed: 04/09/19 15:25> - Physical Exam Vital Signs Temp Pulse Resp BP Pulse Ox 98.3 F 81 19 H 96/58 L 98 04/09/19 13:00 04/09/19 13:00 04/09/19 13:00 04/09/19 13:00 04/09/19 13:00 Oxygen Flow Rate (L/min) 3 Oxygen Delivery Method Nasal Cannula Weight: 197 lb 1.492 oz Body Mass Index (BMI) 31.9 Finger Stick Blood Glucose 118 Intake and Output for Last 24 Hours 04/07/19 04/08/19 04/09/19 23:59 23:59 23:59 Intake Total 870 / 870 2444.30 / 2444.30 500 / 500 Output Total 4545 / 4545 Balance 870 / 870 -2100.70 / -2100.70 500 / 500 Laboratory Tests Past 24 Hrs 04/09/19 04/09/19 03:45 03:45 WBC 8.2 RBC 2.45 L Hgb 8.4 L Hct 28.0 L MCV 114.3 H MCH 34.3 H MCHC 30.0 L RDW Std Deviation 71.7 H RDW Coeff of Scott 17.2 H Plt Count 112 L MPV 9.2 Differential Comment SCANNED Sodium 140 Potassium 4.3 Chloride 99 Carbon Dioxide 30.0 Anion Gap 11 BUN 58 H Creatinine 6.76 H Estim Creat Clear Calc 9.84 Est GFR (MDRD) Af Amer 9 L Est GFR (MDRD) Non-Af 7 L BUN/Creatinine Ratio 8.6 L Glucose 149 H Calcium 8.0 L Total Bilirubin 0.50 AST 28 ALT 31 Alkaline Phosphatase 122 H Total Protein 6.6 Albumin 2.4 L Globulin 4.2 Albumin/Globulin Ratio 0.6 L POC Glucose 04/09/19 04/09/19 04/09/19 12:01 06:26 01:36 POC Glucose 106 174 H 139 H 04/08/19 04/08/19 04/08/19 21:06 16:27 15:43 POC Glucose 121 H 118 H 68 L Assessment/Plan Hospitalist note: I am seeing this patient in conjunction with Fiorella Gan. I independently seen and examined the patient. Progress note above and laboratory data reviewed and I concur with the above treatment plan. Patient complained of being not feeling well, no specific complaints. She denies any chest pain or shortness of breath. She has been afebrile, blood pressure is borderline, heart rate stable, pulse ox is 98% on 3 L. - Physical Exam General: Alert, Oriented x3, Cooperative, No apparent distress. HEENT: Atraumatic, PERRLA, EOMI. Neck: Supple, No JVD, Negative Carotid Bruits, Trachea Midline, Thyroid Normal. Lungs: Decreased breath sounds bilateral, more at the bases, no rhonchi, No wheeze, No rales. Cardiovascular: Regular rate, Regular Rhythm, Normal S1, Normal S2, PMI Normal. Abdomen: Bowel Sounds Present, Soft, Non Tender, Non-Distended, No Hepato- splenomegaly. Extremities: No clubbing, No cyanosis, No edema Skin: No rashes, No breakdown Neurological: Cranial nerves are intact, neuro grossly intact Assessment and plan: #1 acute non-ST elevation VT: Status post PTCA/VIKY to mid left circumflex. She is on aspirin, Plavix, Lipitor, Coreg, nitrate and losartan. 2D echocardiogram revealed ejection fraction of 25%, stage II diastolic dysfunction. Today, her blood pressure has been borderline, heart rate stable. Cardiology on the case. Plan to continue same treatment, transfer to PCU. #2 ESRD on hemodialysis: Nephrology consulted, continue dialysis according to nephrology. #3 severe peripheral vascular disease: With gangrene of the distal right fourth finger as well as multiple toes. She is on Augmentin and doxycycline that was started as outpatient. Vascular surgery consulted. #4 other chronic medical problems: Stable, continue current medications as above. This note was generated with [employer] dictation software. It may contain incorrect words, spelling, and punctuation that were not noted in checking the note before signing. Code Visit Inpatient E&M: 68468 Subs Hosp L2
--- NOTE | 2019-04-09 15:29 | CASEMGMT ---
Addendum entered by Kian Ernst 04/09/19 15:56: -Call to Wendy @ [facility]. Noted PT/OT notes that PT/OT is recommended on dc. Added to resume order and Wendy was updated. Services will be RN, TAYLER, PT/OT. -MALLORY SCHUMACHER spoke with pt re: nonworking phone #'s. Pt states she does not have phone, but to call her SO Mark Carrillo @ [phone] and use this as her contact #. Call to this #, it was active and went to voice mail. Listed number for Anthony Carrillo was different on demographics- corrected to above phone #. Pt states if Gilda Rizzo from [facility] cannot get a hold of her on dc, she is agreeable to have Gilda call her mother (phone listed is correct) to facilitate contact. -Call received from Gilda Rizzo CM at [facility]. She will plan to go to pt's home to evaluate her for waiver services on discharge. Gilda also mentioned she may see pt in hospital tomorrow. MALLORY SCHUMACHER let Gilda know that pt's listed phone number was not working, but her mother's number is. Original Note: MALLORY SCHUMACHER Note: call to [facility]- message left with Gilda Rizzo, No answer. Requested to be put through to Oncall person. Per Oncall nurse- pt was just enrolled in CM program on 04/05/19. Services have not been assessed or started yet. They will see pt on dc. Requested DC Summary be faxed to Gilda Rizzo @ on dc. (Phone for Gilda Rizzo: [phone]). -TAYLER saw pt today, note pending. DC PLAN: anticipate Home with resumption [facility] and CM from [facility]. Colin CURTISN RN ACM
[2019-04-09 17:01] LABS: Bedside Glucose 221 mg/dL (70-110)
[2019-04-09] MEDS: HYDROcodone Bitartrate/Apap 5/325 Tablet PO (18:38)
[2019-04-09] MEDS: Carvedilol 6.25 MG Tablet PO (22:29)
[2019-04-09] MEDS: Atorvastatin Calcium 10 MG Tablet PO (22:29)
[2019-04-09 22:41] LABS: Bedside Glucose 206 mg/dL (70-110)
[2019-04-10] VITALS (8 sets, daily range): BP systolic 93–119; BP diastolic 46–71; PULSE 78–87; RESP 16–18; TEMP 36.5–37.1; O2SAT 94–100
[2019-04-10] MEDS: Metoclopramide 10 MG/2 ML Vial 5 MG IV (00:43)
[2019-04-10] MEDS: HYDROcodone Bitartrate/Apap 5/325 Tablet PO ×2 (00:43→11:29)
[2019-04-10 03:26] LABS: Bedside Glucose 169 mg/dL (70-110)
[2019-04-10] MEDS: Insulin Lispro 100 UNIT/ML INSULN.PEN SC (06:41)
[2019-04-10 06:44] LABS: Hematocrit 26.7 % (37-47); Hemoglobin 7.9 g/dL (12.0-15.0); Mean Corp Hgb Conc 29.6 g/dL (32-36); Mean Corpuscular Hgb 33.8 pg (27.0-32.0); Mean Corpuscular Volume 114.1 fL (81-99); Mean Platelet Vol. 9.5 fl (6.2-12.0); POSITIVE MORPHOLOGY YES; Platelet Count 111 K/mm3 (150-450); RBC Distribution Width CV 17.7 % (11.6-14.6); Red Blood Count 2.34 M/mm3 (4.2-5.4); White Blood Count 9.2 K/mm3 (4.4-11.0)
[2019-04-10 06:46] LABS: Bedside Glucose 208 mg/dL (70-110)
[2019-04-10 06:49] LABS: Scan Indicated on CBC? Y/N YES- FLAGS NOTED
[2019-04-10 07:07] LABS: Differential Comment SCANNED
[2019-04-10 07:15] LABS: Anion Gap 14 (5-15); BUN 76 mg/dL (7-18); BUN/Creat Ratio 8.6 RATIO (10-20); Calcium,Total 9.1 mg/dL (8.5-10.1); Chloride 100 mmol/L (98-107); Creatinine, Serum 8.84 mg/dL (0.55-1.02); EST Glomerular Filtration Rate 5 mL/min (>60); Est Glom Filt Rate - Afr Amer 6 mL/min (>60); Estimated Creatinine Clearance 7.52 ml/min; Glucose 194 mg/dL (74-106); Potassium 5.4 mmol/L (3.5-5.1); Sodium Level 138 mmol/L (136-145)
[2019-04-10] MEDS: Acetaminophen 325 MG Tablet 650 MG PO (09:47)
--- NOTE | 2019-04-10 09:56 | DIALYSIS ---
Report form primary RNWu Hep B sab (positive 18) 08/07/2018. Copy of result placed in patient's chart Access: Left forearm AVF. Site benign, thrill and bruit present, cannulated with 15 gauge needles x 2. Connections visible and secure.
--- NOTE | 2019-04-10 10:00 | EKG12_ITS ---
Test Reason : AM Blood Pressure : / mmHG Vent. Rate : 081 BPM Atrial Rate : 081 BPM P-R Int : 144 ms QRS Dur : 106 ms QT Int : 414 ms P-R-T Axes : 064 087 250 degrees QTc Int : 480 ms Normal sinus rhythm Possible Left atrial enlargement ST & T wave abnormality, consider inferolateral ischemia Prolonged QT Abnormal ECG When compared with ECG of 09-APR-2019 05:37, MANUAL COMPARISON REQUIRED, DATA IS UNCONFIRMED Confirmed by DIVINA BEASLEY, SUSI ([id number]), multimedia editor KEVIN WALTERS ([id number]) on 04/12/2019 2:24:59 PM Referred By: Confirmed By:SUSI MURCIA MD
--- NOTE | 2019-04-10 10:43 | PCM.PN.REN ---
Subjective: Pt was seen during HD session denied nausea/vomiting. No SOB No CP - Physical Exam General: Alert, No apparent distress HEENT: Atraumatic Oral: Moist Mucosa Neck: Supple, No JVD Lungs: Clear to auscultation, Normal air movement, No rhonchi, No wheeze Cardiovascular: Regular rate, Regular Rhythm, Normal S1, Normal S2 Abdomen: Bowel Sounds Present, Soft, Non Tender Extremities: No cyanosis, Edema - +1 edema of LE Skin: No rashes Lymphatic: No Cervical, Supraclavicular, or Inguinal Adenopathy Neurological: Cranial nerves II-XII grossly intact, Neuro grossly intact Psych/Mental Status: Appropriate Vital Signs Temp Pulse Resp BP Pulse Ox 98.8 F 85 16 119/46 L 97 04/10/19 09:25 04/10/19 09:25 04/10/19 09:25 04/10/19 09:25 04/10/19 09:25 Oxygen Flow Rate (L/min) 2.5 Oxygen Delivery Method Nasal Cannula Weight: 90.5 kg Body Mass Index (BMI) 31.9 Finger Stick Blood Glucose 118 Intake and Output for Last 24 Hours 04/08/19 04/09/19 04/10/19 23:59 23:59 23:59 Intake Total 2444.30 / 2444.30 620 / 1620 1120 / 1120 Output Total 4545 / 4545 Balance -2100.70 / -2100.70 620 / 1620 1120 / 1120 Laboratory Tests Past 24 Hrs 04/10/19 04/10/19 06:36 06:36 WBC 9.2 RBC 2.34 L Hgb 7.9 L Hct 26.7 L MCV 114.1 H MCH 33.8 H MCHC 29.6 L RDW Std Deviation 73.0 H RDW Coeff of Scott 17.7 H Plt Count 111 L MPV 9.5 Differential Comment SCANNED Sodium 138 Potassium 5.4 H Chloride 100 Carbon Dioxide 24.0 Anion Gap 14 BUN 76 H Creatinine 8.84 H* Estim Creat Clear Calc 7.52 Est GFR (MDRD) Af Amer 6 L Est GFR (MDRD) Non-Af 5 L BUN/Creatinine Ratio 8.6 L Glucose 194 H Calcium 9.1 POC Glucose 04/10/19 04/10/19 04/09/19 06:38 03:12 22:26 POC Glucose 208 H 169 H 206 H 04/09/19 04/09/19 16:47 12:01 POC Glucose 221 H 106 Medical Necessity - Tobacco Use Smoking Status: Former smoker Assessment/Plan 1. ESRD on MWF HD schedule . Pt goes to [facility] HD unit. Seen during HD session today : BQ 400 DQ 700 UF 2.5 L 2. Anemia. continue ESTUARDO with HD sessions 3- Hyperkalemia: K is 5.4 this am. HD session today with 2 K dialysate 5. SHPT. On Phoslo TID with meals which was started on 04/08. Monitor P and Ca levels. 6-. Acute coronary syndrome. 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 vascular surgeon to see the patient today Renal team will continue to follow. please call if any question or concern at [phone] Maria Isabel Valdivia MD
[2019-04-10] MEDS: Calcitriol 0.25 MCG Capsule 2 MCG PO (11:02)
[2019-04-10] MEDS: Epoetin Alfa epbx 10,000 UNITS/ML 8000 UNIT IV (11:03)
--- NOTE | 2019-04-10 11:22 | CON.PCM_ITS ---
Problem List (1) Peripheral arterial disease Status: Chronic Reason for Consult Date of Consultation: 04/10/19 Reason for Consultation: Concern for right subclavian stenosis History of Present Illness: The patient is a 43 year old F who was admitted in with recurrent chest pain. She had a heart cath in angioplasty of in-stent stenosis. During the procedure and also during dialysis is noted to be hypotension. They are adjusting her blood pressure medication. I have noticed though that it is significant decrease in pulse on the right arm compared to the left arm. She has a fistula on the left arm so unable to tell exactly for sure what her pressure is and if the right arm is accurate or not. Although she was hypotensive she was widely awake during all this. Of note she also has some gangrene on the right second a nd fourth fingers and on the top of the right toe. She reports this for the last several weeks. Has not seen or any peripheral arterial valuation that she knows of for this. She feels in the past somebody did tell her she had some other calcifications or may be stenosis in the right arm. Nothing peripheral that I can see. History of MIs and coronary stenting 2018 in January 2019 and angioplasty March 2019. Does not report any stroke or TIA. Patient reports quitting smoking March 2019, but clearly will have to see if this is a long-term goal of hers or not. Patient with a left radiocephalic AV fistula on hemodialysis 2016. Patient had a colostomy in 2018 for a cyst that was treated with plastics this has healed but unable to reverse the colostomy secondary to her anticoagulation from the coronary stents. She reports ports hypertension on medication but being adjusted. She has been diabetic since 2004. [] Past Medical History Past Medical History (Chronic Problems): Chronic Problems (Last Reviewed 04/10/19 @ 11:25 by Jordin Cruz MD) S/P PTCA (percutaneous transluminal coronary angioplasty) (Chronic 04/08/19) PCI to mid LCX ISR with 2.0 and 2.25 NC balloon, unable to cross with 2.0 X 10 Angiosculpt. 04/08/2019 Raynaud's disease with gangrene (Chronic) Peripheral arterial disease (Chronic) Acute on chronic systolic (congestive) heart failure (Chronic) Ischemic cardiomyopathy (Chronic) EF in December 2018 on a stress test was 29% with extensive wall motion abnormalities COPD (chronic obstructive pulmonary disease) (Chronic) Elevated troponin I level (Chronic) Anemia due to chronic kidney disease (Chronic) CAD (coronary artery disease) (Chronic) Stented coronary artery (Chronic 01/28/19) FFR of LAD 0.82; VIKY of mid LAD with 2.5 X 24 mm Promus Synergy, OM <50% stenosis per Dr. Magdaleno @ [facility];Occluded mid LAD stent with L to R collaterals. Double vessel CAD of the LCX and OM#1 Segmented LV systolic dysfunction- Severe LVEF: by LV gram 25 % Elevated Left Ventricular End Diastolic Pressure Successful PCI with PTCA to the proximal OM#1 with a 1.5 and 2.0 mm balloon; unable to advance new deflated balloon beyond mid OM due to calcification. No dissection, no stents placed and pt had no symptoms . Successful PTCA/VIKY to mid LCX with 2.25 x 12 Promus Synergy, post dilated with a 2.25 x 8 NC Balloon; 75%-->0%, no dissection. ESRD (end stage renal disease) on dialysis (Chronic) Decubitus ulcer, stage III (Chronic) GABRIEL (obstructive sleep apnea) (Chronic) Depression (Chronic) Anxiety (Chronic) HTN (hypertension) (Chronic) S/P repair of PDA (patent ductus arteriosus) (Chronic) At young age Hyperlipidemia (Chronic) Obesity (BMI 30.0-34.9) (Chronic) Gastroparesis (Chronic) Medical History: Medical History (Last Reviewed 04/10/19 @ 11:25 by Jordin Cruz MD) ESRD (end stage renal disease) on dialysis (Chronic) N18.6, Z99.2 Decubitus ulcer, stage III (Chronic) L89.93 GABRIEL (obstructive sleep apnea) (Chronic) G47.33 HTN (hypertension) (Chronic) I10 Hyperlipidemia (Chronic) E78.5 Obesity (BMI 30.0-34.9) (Chronic) E66.9 Gastroparesis (Chronic) K31.84 Allergies latex Allergy (Verified 03/19/19 21:59) Rash prochlorperazine [From Compazine] Allergy (Verified 03/19/19 21:59) Unknown levofloxacin [From Levaquin] Adverse Reaction (Verified 03/19/19 21:59) PT CAN'T REMEMBER PT CAN'T REMEMBER metoclopramide HCl [From Reglan] Adverse Reaction (Verified 03/19/19 21:59) Nausea NSAIDS (Non-Steroidal Anti-Inflamma Adverse Reaction (Verified 03/19/19 21:59) kidney function Home Medications: Ambulatory Orders Medication Instructions Recorded Aspirin [Aspirin, Baby] 81 mg PO DAILY@0800 01/26/16 Ergocalciferol [Vitamin D] 50,000 unit PO QWEEK 01/26/16 Insulin Aspart [Novolog Flexpen] 10 units SC TIDCM 01/26/16 Insulin Glargine,Hum.rec.anlog 5 unit SQ QHS 01/09/17 [Lantus] Sodium Bicarbonate 650 mg PO 4X/DAY 03/29/17 Atorvastatin Calcium [Lipitor] 10 mg PO QHS 05/26/18 Carvedilol [Coreg] 25 mg PO BID 05/26/18 Pantoprazole Sodium [Protonix] 20 mg PO BID 05/26/18 Clopidogrel Bisulfate [Plavix] 75 mg PO DAILY 07/01/18 ALPRAZolam [Xanax] 0.5 mg PO MOWEFR PRN 08/09/18 B Complex W-C No.20/Folic Acid 1 mg PO MOWEFR 08/09/18 [Nephrocaps Softgel] Fluoxetine HCl 40 mg PO DAILY 08/09/18 Lidocaine/Prilocaine HCl [Emla 1 applicatio TOPICAL MOFR 10/01/18 Cream W/Tegaderm] Nystatin Powder [Mycostatin Powder] 1 applic TOPICAL BID PRN 10/14/18 hydrOXYzine tablet [Atarax tablet] 10 mg PO MOWEFR 11/06/18 Sodium Chloride 0.65% [[place] Nasal 2 spray NASAL TID PRN PRN 12/14/18 [place]] spray.btl Acetaminophen [Tylenol Tablet] 650 mg PO Q6H PRN PRN tab 01/29/19 Nitroglycerin (INPATIENT USE) 0.4 mg SUBLINGUAL Q5M PRN #10 01/29/19 [Nitrostat] tab.subl amlodipine 2.5 mg tablet 2.5 mg PO DAILY 02/28/19 Amox/Clavulanate Tablet [Augmentin 500 mg PO BID 03/19/19 Tablet] Doxycycline Hyclate 100 mg PO BID 03/19/19 Hydrocodone Bitart/Apap 5-325 2 tab PO Q6H PRN PRN 03/19/19 [[place] 5MG-325MG] Isosorbide Mononitrate [Imdur] 60 mg PO DAILY 04/07/19 Lisinopril [Zestril] 10 mg PO DAILY 04/07/19 Sucroferric Oxyhydroxide [Velphoro] 1,500 mg PO TIDCM 04/07/19 Surgical History: Surgical History (Last Reviewed 04/10/19 @ 11:26 by Jordin Cruz MD) S/P PTCA (percutaneous transluminal coronary angioplasty) (Chronic) Onset Date: 04/08/19 Z98.61 PCI to mid LCX ISR with 2.0 and 2.25 NC balloon, unable to cross with 2.0 X 10 Angiosculpt. 04/08/2019 Stented coronary artery (Chronic) Onset Date: 01/28/19 Z95.5 FFR of LAD 0.82; VIKY of mid LAD with 2.5 X 24 mm Promus Synergy, OM <50% stenosis per Dr. Magdaleno @ [facility];Occluded mid LAD stent with L to R collaterals. Double vessel CAD of the LCX and OM#1 Segmented LV systolic dysfunction- Severe LVEF: by LV gram 25 % Elevated Left Ventricular End Diastolic Pressure Successful PCI with PTCA to the proximal OM#1 with a 1.5 and 2.0 mm balloon; unable to advance new deflated balloon beyond mid OM due to calcification. No dissection, no stents placed and pt had no symptoms . Successful PTCA/VIKY to mid LCX with 2.25 x 12 Promus Synergy, post dilated with a 2.25 x 8 NC Balloon; 75%-->0%, no dissection. S/P repair of PDA (patent ductus arteriosus) (Chronic) Z98.890, Z87.74 At young age Surgical History: angioplasty, appendectomy, hysterectomy, - Psychiatric History: Anxiety, Depression TECH INTERN History: No pertinent TECH INTERN history Smoking Status: Former smoker - *Family History Maternal Family History: Family History (This Medical Record has been edited. Action required.) Father Diabetes Mother CVA (cerebral vascular accident) Hypertension Diabetes Cancer History Items: Cancer, COPD, Diabetes, Hypertension, Renal Disease, Stroke Paternal Family History: Family History (This Medical Record has been edited. Action required.) Father Diabetes Mother CVA (cerebral vascular accident) Hypertension Diabetes Cancer History Items: Diabetes, Heart Disease Sibling Family History: Family History (This Medical Record has been edited. Action required.) Father Diabetes Mother CVA (cerebral vascular accident) Hypertension Diabetes Cancer History Items: Cancer, Diabetes Review of Systems Constitutional: Denies: Chills, Fever, Weight Change HEENT: Denies: Head Aches, Sinus Congestion, Sinus Drainage Cardiovascular: Denies: Chest Pain, Palpitations Respiratory: Denies: Cough, Shortness of breath at rest, Sputum production Gastrointestinal: Denies: Abdominal Pain, Nausea, Vomiting Genitourinary: Denies: Dysuria Musculoskeletal: Reports: - - Gangrene fingers right hand and right foot - Physical Exam General: Alert, Oriented x3 HEENT: Atraumatic, PERRLA Oral: Moist Mucosa Neck: Supple, No JVD Lungs: Clear to auscultation Cardiovascular: Regular rate Abdomen: Soft Extremities: - - Difficult to feel pulses in the right arm. Gangrene the tip of the right second and fourth finger. Fistula in the left radiocephalic. Gangrene right toe Mild edema noted Vital Signs Temp Pulse Resp BP Pulse Ox 98.8 F 85 16 119/46 L 97 04/10/19 09:25 04/10/19 09:25 04/10/19 09:25 04/10/19 09:25 04/10/19 09:25 Oxygen Flow Rate (L/min) 2.5 Oxygen Delivery Method Nasal Cannula Weight: 199 lb 8.293 oz Body Mass Index (BMI) 31.9 Finger Stick Blood Glucose 118 Intake and Output for Last 24 Hours 04/08/19 04/09/19 04/10/19 23:59 23:59 23:59 Intake Total 2444.30 / 2444.30 620 / 1620 1120 / 1120 Output Total 4545 / 4545 Balance -2100.70 / -2100.70 620 / 1620 1120 / 1120 Laboratory Tests Past 24 Hrs 04/10/19 04/10/19 06:36 06:36 WBC 9.2 RBC 2.34 L Hgb 7.9 L Hct 26.7 L MCV 114.1 H MCH 33.8 H MCHC 29.6 L RDW Std Deviation 73.0 H RDW Coeff of [place] 17.7 H Plt Count 111 L MPV 9.5 Differential Comment SCANNED Sodium 138 Potassium 5.4 H Chloride 100 Carbon Dioxide 24.0 Anion Gap 14 BUN 76 H Creatinine 8.84 H* Estim Creat Clear Calc 7.52 Est GFR (MDRD) Af Amer 6 L Est GFR (MDRD) Non-Af 5 L BUN/Creatinine Ratio 8.6 L Glucose 194 H Calcium 9.1 POC Glucose 04/10/19 04/10/19 04/09/19 06:38 03:12 22:26 POC Glucose 208 H 169 H 206 H 04/09/19 04/09/19 16:47 12:01 POC Glucose 221 H 106 Assessment/Plan Patient admitted with recurrent chest pain and had redo angioplasty of an in- stent stenosis. Noted to have PAD and end-stage renal disease with diabetes and persistent smoking. Vascular surgery asked for evaluation of it. 1. Right arm PAD. We will get a right arm arterial duplex study with the waveforms are through here to see if we see any areas of blockage or stenosis. If it looks to proximal remained up needing a CTA of the chest. Would coordinate this around the time of dialysis. And will see if there is something that we can do a stent or angioplasty of. This can be done with intervention as an outpatient but will try to get the studies while she is here. 2. Right leg PAD. Get a right leg arterial duplex with ABIs. Again try to get the studies why she is here but we can follow-up in intervention as an outpatient.
--- NOTE | 2019-04-10 11:52 | ADUL_ITS ---
Reason For Study: PAD Right Velocities Ext. Iliac Artery, dist = 110 cm./sec. Common Femoral Artery, mid = 68 cm./sec. Supf Femoral Artery, prox = 93 cm./sec. Supf Femoral Artery, mid = 100 cm./sec. Supf Femoral Artery, dist. = 140 cm./sec. Profunda Femoral Artery = 65 cm./sec. Popliteal Artery, prox. = 94 cm./sec. Popliteal Artery, mid = 83 cm./sec. Popliteal Artery, dist = 67 cm./sec. Ant. Tibial Artery, prox = 39 cm./sec. Ant. Tibial Artery, dist = 115 cm./sec. Post. Tibial Artery, prox = 93 cm./sec. Post. Tibial Artery, mid = 58 cm./sec. Peroneal Artery, prox = 58 cm./sec. Peroneal Artery, mid = 45 cm./sec. Peroneal Artery,dist = 25 cm./sec. Procedure The exam was diagnostic. Exam performed portable in patient room. Interpretation Summary 1. right leg with biphasic flow htroughout and htrough DP with both peroneal and posterior tibial monophasic flow. No obvious stenosis. Ordering Physician: Fiorella Gan Referring Physician: RIC MCCRARY Performed By: Marika Acevedo, RDCS, RVT
--- NOTE | 2019-04-10 11:54 | ART_ITS ---
Reason For Study: PAD Procedure A bilateral lower extremity continuous wave Doppler with analog waveform analysis and ankle brachial indexes. Left Segmental Pressures Left posterior tibial artery = 52mmHg. Left dorsalis pedis artery = >254mmHg. The left dorsalis pedis waveforms are monophasic. The left posterior tibial artery waveforms are monophasic. Right Segmental Pressures Right brachial= 106mmHg. Right posterior tibial artery = 64mmHg. Right dorsalis pedis artery = >254mmHg. The right dorsalis pedis waveforms are biphasic. The right posterior tibial artery waveforms are monophasic. Indices The right ankle brachial index by the dorsalis pedis is NC. The right ankle brachial index by the posterior tibial artery is 0.60. The left ankle brachial index by the dorsalis pedis is NC. The left ankle brachial index by the posterior tibial artery is 0.49. Interpretation Summary 1. Bilateral moderate occlusive disease with bilateral DP noncompressible. Right is biphasic and left is monophasic flow. Posterior tibial is bilateral monophasic and 0.6/0.49. Ordering Physician: Fiorella Gan Referring Physician: Christopher Foy Performed By: Viktoria Foreman RVT
--- NOTE | 2019-04-10 12:16 | PN.CARD_ITS ---
Subjectve: Patient doing well this morning, no 24-hour events. No chest pain. About to undergo dialysis. Peripheral vascular consultation reviewed and appreciated by Dr. Cruz. Objective: Vital Signs Temp Pulse Resp BP Pulse Ox 98.8 F 85 16 119/46 L 97 04/10/19 09:25 04/10/19 09:25 04/10/19 09:25 04/10/19 09:25 04/10/19 09:25 Oxygen Flow Rate (L/min) 2.5 Oxygen Delivery Method Nasal Cannula Weight: 199 lb 8.293 oz Body Mass Index (BMI) 31.9 Finger Stick Blood Glucose 118 Intake and Output for Last 24 Hours 04/08/19 04/09/19 04/10/19 23:59 23:59 23:59 Intake Total 2444.30 / 2444.30 620 / 1620 1120 / 1120 Output Total 4545 / 4545 Balance -2100.70 / -2100.70 620 / 1620 1120 / 1120 General: Awake, Alert, Oriented x 3 HEENT: PERRL, EOMI, Sclera Non Icteric Neck: Supple, Good ROM, No Lymph Node Enlargement Lungs: Clear to auscultation Cardiovascular: Regular Rhythm, Normal S1, Normal S2, No Murmurs, No Rubs, No Gallops Vascular: No Carotid Bruits, Normal Femoral Pulses, Normal Radial Pulses, Normal Dorsalis Pedal Pulse, Normal Posterior Tibial Pulses Abdomen: Bowel Sounds Present, Soft, Non Tender, No HSM, No Organomegaly Extremities: No Cyanosis, No Clubbing, No edema Neurological: No Focal Motor or Sensory Deficit 04/10/19 06:36: WBC 9.2, RBC 2.34 L, Hgb 7.9 L, Hct 26.7 L, MCV 114.1 H, MCH 33.8 H, MCHC 29.6 L, Plt Count 111 L, MPV 9.5 04/10/19 06:36: Sodium 138, Potassium 5.4 H, Chloride 100, Carbon Dioxide 24.0, Anion Gap 14, BUN 76 H, Creatinine 8.84 H*, Est GFR (MDRD) Af Amer 6 L, Est GFR (MDRD) Non-Af 5 L, BUN/Creatinine Ratio 8.6 L, Glucose 194 H, Calcium 9.1 Rhythm: EKG: ECHO: Stress Test: Cardiac Cath: PCI: CT Surgery: Holter monitor: EPS: PPM: CXR: Chest CT Scan: Medical Necessity - Tobacco Use Smoking Status: Former smoker Assessment/Plan 1. Coronary artery disease: The patient underwent repeat catheterization for non-ST elevation myocardial infarction and was found to have aggressive in-stent restenosis of her mid left circumflex small 2.25 mm stent that was recently placed in January 2019. The patient underwent balloon angioplasty only of this in- stent restenosis and no additional stenting was performed given the small nature of the stent. We attempted to pass a angioscope balloon but was unable to do so due to the curvature of the vessel. In addition the patient has had progression of mid PDA atherosclerosis, but she had no anginal symptoms perfusing the dialysis machine yesterday. And attempt to avoid additional angioplasty and stenting while she is convalescing from an infectious process and due to lack of angina, we will hold off on intervention of this vessel at this time. I recommend continuing her baby aspirin, Plavix, and continue to keep her hemoglobin above 8.0. Once the patient's gangrene has resolved, we then can consider the option of stress testing to evaluate the inferior wall for ischemia. 2. Hypertension: The patient's blood pressure has been hypotensive although this may be problematic given the patient's probable subclavian stenosis on the right side making blood pressure is inaccurate. The patient has a week right radial pulse and apparently they have been eating Doppler to get the blood pressure. Patient underwent consultation with Dr. Cruz this morning, who recommended ultrasound of her right subclavian as well as ABIs of her right lower extremity. We await those results. Her blood pressure is much better controlled since adjusting her medications. 3. Hypercholesterolemia: Continue antilipid therapy. 4. Toe gangrene: Patient is being treated with antibiotics for toe gangrene, and blood cultures were sent yesterday. Repeat echocardiogram showed no evidence of valvular endocarditis. White count is okay, do not recommend GAVIOTA at this time. Continue antibiotic therapy. Patient may require infectious disease consultation or evaluation for osteomyelitis of her great toe. 5. Will sign off, please call with any questions. Patient may be discharged home from a cardiac standpoint. Code Visit Inpatient E&M: 31475 Subs Hosp L2
[2019-04-10 12:50] LABS: Bedside Glucose 150 mg/dL (70-110)
--- NOTE | 2019-04-10 13:30 | DIALYSIS ---
Addendum entered by Alcides Marie 04/10/19 15:54: Hemodialysis complete. 3.5 hour run, 2k bath. Net fluid removed = 2500 ml. Patient tolerated HD tx well. Left forearm AVF: site benign, thrill and bruit present, needle site pressure held 20 min arterial and 10 min venous. Hemostasis achieved. Report given to primary RNBandar Original Note: Hemodialysis complete.
--- NOTE | 2019-04-10 14:12 | DCINST_ITS ---
You will use the following diet at home:: Calorie/Carbohydrate Controlled (specify 1200, 1400, etc), Cardiac Discharge Activity: Return to Normal Activity Call your doctor if you observe: Shortness of breath, Dizziness, Fainting spells, Chest pain Allergies/Adverse Reactions: Allergies latex Allergy (Verified 03/19/19 21:59) Rash prochlorperazine [From Compazine] Allergy (Verified 03/19/19 21:59) Unknown levofloxacin [From Levaquin] Adverse Reaction (Verified 03/19/19 21:59) PT CAN'T REMEMBER PT CAN'T REMEMBER metoclopramide HCl [From Reglan] Adverse Reaction (Verified 03/19/19 21:59) Nausea NSAIDS (Non-Steroidal Anti-Inflamma Adverse Reaction (Verified 03/19/19 21:59) kidney function Medications to take at Discharge Aspirin [Aspirin, Baby] 81 mg PO DAILY@0800 01/26/16 Ergocalciferol [Vitamin D] 50,000 unit PO QWEEK 01/26/16 Insulin Aspart [Novolog Flexpen] 10 units SC TIDCM 01/26/16 Insulin Glargine,Hum.rec.anlog [Lantus] 5 unit SQ QHS 01/09/17 Sodium Bicarbonate 650 mg PO 4X/DAY 03/29/17 Atorvastatin Calcium [Lipitor] 10 mg PO QHS 05/26/18 Pantoprazole Sodium [Protonix] 20 mg PO BID 05/26/18 Clopidogrel Bisulfate [Plavix] 75 mg PO DAILY 07/01/18 ALPRAZolam [Xanax] 0.5 mg PO MOWEFR PRN 08/09/18 B Complex W-C No.20/Folic Acid [Nephrocaps Softgel] 1 mg PO MOWEFR 08/09/18 Fluoxetine HCl 40 mg PO DAILY 08/09/18 Lidocaine/Prilocaine HCl [[place]ml[place] Cream W/Tegaderm] 1 applicatio TOPICAL MOWEFR 10/01/18 Nystatin Powder [Mycostatin Powder] 1 applic TOPICAL BID PRN 10/14/18 hydrOXYzine tablet [Atarax tablet] 10 mg PO MOWEFR 11/06/18 Sodium Chloride 0.65% [[place] Nasal [place]] 2 spray NASAL TID PRN PRN spray.btl 12/14/18 Acetaminophen [Tylenol Tablet] 650 mg PO Q6H PRN PRN tab 01/29/19 Nitroglycerin (INPATIENT USE) [Nitrostat] 0.4 mg SUBLINGUAL Q5M PRN #10 tab.subl 01/29/19 amlodipine 2.5 mg tablet 2.5 mg PO DAILY 02/28/19 Hydrocodone Bitart/Apap 5-325 [[place] 5/325] 2 tab PO Q6H PRN PRN 03/19/19 Sucroferric Oxyhydroxide [Velphoro] 1,500 mg PO TIDCM 04/07/19 Carvedilol [Coreg (Beta Chang)] 6.25 mg PO BID #60 tab 04/10/19 Losartan Potassium [Cozaar] 12.5 mg PO DAILY #30 tab 04/10/19 The following prescriptions were given: Carvedilol [Coreg (Beta Chang)] 6.25 mg PO BID #60 tab Transmission Status: Pending to [facility]/pharmacy #[id number] Losartan Potassium [Cozaar] 12.5 mg PO DAILY #30 tab Transmission Status: Pending to [facility]/pharmacy #[id number] Primary Care Physician: Christopher Foy MD [Primary Care Provider] - Please follow up with your Primary Care Physician in: 1 Week Test Results: Test results from this visit will be discussed in further detail at your follow- up appointment, if applicable. Please Follow Up With: Mark Magdaleno MD When: 2 Weeks Please Follow Up With: Jordin Cruz MD When: 1 Week Please Follow Up With: Nephrology When: As scheduled Proposed Discharge Date: 04/10/19
--- NOTE | 2019-04-10 14:17 | PCM.DC.SUM ---
<Fiorella Gan - Last Filed: 04/10/19 14:27> Discharge Date and Diagnosis Date of Admission: 04/07/19 Date of Discharge: 04/10/19 - Primary Discharge Diagnosis 1. Non-STEMI/CAD s/p PCI/PTCA to mid LCx ISR. 2. End-stage renal disease on hemodialysis 3. Chronic systolic and diastolic CHF 4. 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 Chronic hypoxic respiratory failure secondary to chronic COPD 6. GABRIEL 7. Hypertension 8. Hyperlipidemia 9. Morbid obesity 10. Anemia of chronic disease 11. Anxiety/depression 12. Tobacco dependence 13. Status post colostomy due to history of chronic wounds which have since healed 14. Peripheral arterial disease-gangrenous distal right fourth finger, right great toe - Secondary Discharge Diagnosis Chronic Problems (Last Reviewed 04/10/19 @ 11:25 by Jordin Cruz MD) S/P PTCA (percutaneous transluminal coronary angioplasty) (Chronic 04/08/19) PCI to mid LCX ISR with 2.0 and 2.25 NC balloon, unable to cross with 2.0 X 10 Angiosculpt. 04/08/2019 Raynaud's disease with gangrene (Chronic) Peripheral arterial disease (Chronic) Acute on chronic systolic (congestive) heart failure (Chronic) Ischemic cardiomyopathy (Chronic) EF in December 2018 on a stress test was 29% with extensive wall motion abnormalities COPD (chronic obstructive pulmonary disease) (Chronic) Elevated troponin I level (Chronic) Anemia due to chronic kidney disease (Chronic) CAD (coronary artery disease) (Chronic) Stented coronary artery (Chronic 01/28/19) FFR of LAD 0.82; VIKY of mid LAD with 2.5 X 24 mm Promus Synergy, OM <50% stenosis per Dr. Magdaleno @ [facility];Occluded mid LAD stent with L to R collaterals. Double vessel CAD of the LCX and OM#1 Segmented LV systolic dysfunction- Severe LVEF: by LV gram 25 % Elevated Left Ventricular End Diastolic Pressure Successful PCI with PTCA to the proximal OM#1 with a 1.5 and 2.0 mm balloon; unable to advance new deflated balloon beyond mid OM due to calcification. No dissection, no stents placed and pt had no symptoms . Successful PTCA/VIKY to mid LCX with 2.25 x 12 Promus Synergy, post dilated with a 2.25 x 8 NC Balloon; 75%-->0%, no dissection. ESRD (end stage renal disease) on dialysis (Chronic) Decubitus ulcer, stage III (Chronic) GABRIEL (obstructive sleep apnea) (Chronic) Depression (Chronic) Anxiety (Chronic) HTN (hypertension) (Chronic) S/P repair of PDA (patent ductus arteriosus) (Chronic) At young age Hyperlipidemia (Chronic) Obesity (BMI 30.0-34.9) (Chronic) Gastroparesis (Chronic) Hospital Course and Treatment Consultations 04/08/19 07:40 Consult: Onc/Wound/bingo usher Routine Comment: gangrene, colostomy Dr. Magdaleno, Cardiology Dr. Cruz, vascular surgery Dr. Addison- ID Dr. Valdivia- Nephrology Operations: None Procedures: 2-D Echocardiogram, Cardiac catheterization Summary of Care Provided: The patient is a 43 year old F admitted 04/07/2019 due to chest pain. 1. Non-STEMI/CAD with history of multiple stents-cardiology consulted. Patient underwent cardiac catheterization 04/08/2019 with PCI/PTCA to mid LCx ISR. LVEF 10%. EF during recent cath 02/08 25%. Continue aspirin, statin, plavix, carvedilol, losartan. Isosorbide held at discharge due to hypotension. Follow-up with Dr. Magdaleno in 2 weeks. 2. End-stage renal disease on hemodialysis-continue follow-up with nephrology, hemodialysis regimen. 3. Chronic systolic and diastolic CHF-echocardiogram January 2019 with EF 35%. Repeat echocardiogram demonstrates an EF of 25%, stage II diastolic dysfunction. No acute CHF. 4. 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 5. Chronic hypoxic respiratory failure secondary to chronic COPD-at baseline. Continue supplement oxygen to maintain O2 at or above 90%. 6. GABRIEL 7. Hypertension-BP regimen adjusted given hypotension. Amlodipine discontinued, carvedilol reduced to 6.25 mg twice daily. Lisinopril and isosorbide discontinued. Changed to losartan 12.5 mg daily. Follow-up with cardiology in 2 weeks as noted above to reevaluate. 8. Hyperlipidemia-continue statin. 9. Morbid obesity-encouraged diet lifestyle modifications. 10. Anemia of chronic disease-stable, at baseline. 11. Anxiety/depression-continue home Xanax, fluoxetine regimen. 12. Tobacco dependence-encouraged smoking cessation. 13. Status post colostomy due to history of chronic wounds which have since healed 14. Peripheral arterial disease-gangrenous distal right fourth finger as well as multiple toes. Completed course of Augmentin and doxycycline. Vascular surgery consult placed. Patient completed right upper extremity and right lower extremity arterial duplex ultrasound as well as bilateral lower extremity ABIs. Follow-up with vascular surgery as outpatient in 1 to 2 weeks. General: Alert, Oriented x3, Cooperative HEENT: Atraumatic, PERRLA, EOMI, Normocephalic Oral: Dry Mucosa Neck: Supple, No JVD, Negative Carotid Bruits Lungs: Clear to auscultation, Diminished Cardiovascular: Regular rate, Regular Rhythm, Normal S1, Normal S2, No murmurs Abdomen: Bowel Sounds Present, Soft, Non Tender, Non-Distended Extremities: No edema, Capillary Refill Less than 3 Seconds Skin: - - Gangrenous distal fingers and toes. Musculoskeletal: No Tenderness to Palpation of Joints or Extremities Neurological: Cranial nerves II-XII grossly intact, Neuro grossly intact Psych/Mental Status: Normal Affect, Appropriate Patient seen and examined prior to discharge. Physical assessment as noted above. Patient is stable for discharge with follow up recommendations as noted above. This patient was seen by SATNAM Mcgraw under the supervision of Dr. Soler. - Physical Exam Vital Signs Temp Pulse Resp BP Pulse Ox 97.7 F L 85 16 107/46 L 95 04/10/19 14:00 04/10/19 14:00 04/10/19 14:00 04/10/19 14:00 04/10/19 14:00 Oxygen Flow Rate (L/min) 2 Oxygen Delivery Method Nasal Cannula Weight: 199 lb 8.293 oz Body Mass Index (BMI) 31.9 Finger Stick Blood Glucose 118 Intake and Output for Last 24 Hours 04/08/19 04/09/19 04/10/19 23:59 23:59 23:59 Intake Total 2444.30 / 2444.30 620 / 1620 1360 / 1360 Output Total 4545 / 4545 Balance -2100.70 / -2100.70 620 / 1620 1360 / 1360 Laboratory Tests Past 24 Hrs 04/10/19 04/10/19 06:36 06:36 WBC 9.2 RBC 2.34 L Hgb 7.9 L Hct 26.7 L MCV 114.1 H MCH 33.8 H MCHC 29.6 L RDW Std Deviation 73.0 H RDW Coeff of Scott 17.7 H Plt Count 111 L MPV 9.5 Differential Comment SCANNED Sodium 138 Potassium 5.4 H Chloride 100 Carbon Dioxide 24.0 Anion Gap 14 BUN 76 H Creatinine 8.84 H* Estim Creat Clear Calc 7.52 Est GFR (MDRD) Af Amer 6 L Est GFR (MDRD) Non-Af 5 L BUN/Creatinine Ratio 8.6 L Glucose 194 H Calcium 9.1 POC Glucose 04/10/19 04/10/19 04/10/19 12:47 06:38 03:12 POC Glucose 150 H 208 H 169 H 04/09/19 04/09/19 22:26 16:47 POC Glucose 206 H 221 H Discharge Diet: Low fat/ Low Cholesterol, Carb Control Diet Discharge Activity: Return to Normal Activity Call your doctor if you observe: Shortness of breath, Dizziness, Fainting spells, Chest pain Home Medications: Medications to take at Discharge Aspirin [Aspirin, Baby] 81 mg PO DAILY@0800 01/26/16 Ergocalciferol [Vitamin D] 50,000 unit PO QWEEK 01/26/16 Insulin Aspart [Novolog Flexpen] 10 units SC TIDCM 01/26/16 Insulin Glargine,Hum.rec.anlog [Lantus] 5 unit SQ QHS 01/09/17 Sodium Bicarbonate 650 mg PO 4X/DAY 03/29/17 Atorvastatin Calcium [Lipitor] 10 mg PO QHS 05/26/18 Pantoprazole Sodium [Protonix] 20 mg PO BID 05/26/18 Clopidogrel Bisulfate [Plavix] 75 mg PO DAILY 07/01/18 ALPRAZolam [Xanax] 0.5 mg PO MOWEFR PRN 08/09/18 B Complex W-C No.20/Folic Acid [Nephrocaps Softgel] 1 mg PO MOWEFR 08/09/18 Fluoxetine HCl 40 mg PO DAILY 08/09/18 Lidocaine/Prilocaine HCl [Emla Cream W/Tegaderm] 1 applicatio TOPICAL MOWEFR 10/01/18 Nystatin Powder [Mycostatin Powder] 1 applic TOPICAL BID PRN 10/14/18 hydrOXYzine tablet [Atarax tablet] 10 mg PO MOWEFR 11/06/18 Sodium Chloride 0.65% [[place] Nasal Hematite] 2 spray NASAL TID PRN PRN spray.btl 12/14/18 Acetaminophen [Tylenol Tablet] 650 mg PO Q6H PRN PRN tab 01/29/19 Nitroglycerin (INPATIENT USE) [Nitrostat] 0.4 mg SUBLINGUAL Q5M PRN #10 tab.subl 01/29/19 amlodipine 2.5 mg tablet 2.5 mg PO DAILY 02/28/19 Hydrocodone Bitart/Apap 5-325 [[place] 5/325] 2 tab PO Q6H PRN PRN 03/19/19 Sucroferric Oxyhydroxide [Velphoro] 1,500 mg PO TIDCM 04/07/19 Carvedilol [Coreg (Beta Chang)] 6.25 mg PO BID #60 tab 04/10/19 Losartan Potassium [Cozaar] 12.5 mg PO DAILY #30 tab 04/10/19 Following Prescrptions Were Given to Patient: Carvedilol [Coreg (Beta Chang)] 6.25 mg PO BID #60 tab Transmission Status: Received by [id number] Losartan Potassium [Cozaar] 12.5 mg PO DAILY #30 tab Transmission Status: Received by [id number] Primary Care Physician: Christopher Foy MD [Primary Care Provider] - Please follow up with your Primary Care Physician in: 1 Week Please Follow Up With: Mark Magdaleno MD When: 2 Weeks Please Follow Up With: Jordin Cruz MD When: 1 Week Please Follow Up With: Nephrology When: As scheduled Please Follow Up With: Clinic,Wound When: 3-5 days Disposition: Home Minutes spent on discharge:: 35 Patient Condition:: Stable Medical Necessity - Tobacco Use Smoking Status: Former smoker Meaningful Use Info Meaningful Use Diagnoses (Choose all that apply): AMI - AMI Aspirin given w/in 24hrs of arrival?: Yes ASA at discharge?: Yes Statins at discharge?: Yes Paulino/ARB at discharge?: Yes Beta Chang at discharge?: Yes Done w/ Acute CO measure.: Yes <Francois Soler E - Last Filed: 04/11/19 11:06> Discharge Date and Diagnosis - Secondary Discharge Diagnosis Chronic Problems (Last Reviewed 04/10/19 @ 11:25 by Jordin Cruz MD) S/P PTCA (percutaneous transluminal coronary angioplasty) (Chronic 04/08/19) PCI to mid LCX ISR with 2.0 and 2.25 NC balloon, unable to cross with 2.0 X 10 Angiosculpt. 04/08/2019 Raynaud's disease with gangrene (Chronic) Peripheral arterial disease (Chronic) Acute on chronic systolic (congestive) heart failure (Chronic) Ischemic cardiomyopathy (Chronic) EF in December 2018 on a stress test was 29% with extensive wall motion abnormalities COPD (chronic obstructive pulmonary disease) (Chronic) Elevated troponin I level (Chronic) Anemia due to chronic kidney disease (Chronic) CAD (coronary artery disease) (Chronic) Stented coronary artery (Chronic 01/28/19) FFR of LAD 0.82; VIKY of mid LAD with 2.5 X 24 mm Promus Synergy, OM <50% stenosis per Dr. Magdaleno @ [facility];Occluded mid LAD stent with L to R collaterals. Double vessel CAD of the LCX and OM#1 Segmented LV systolic dysfunction- Severe LVEF: by LV gram 25 % Elevated Left Ventricular End Diastolic Pressure Successful PCI with PTCA to the proximal OM#1 with a 1.5 and 2.0 mm balloon; unable to advance new deflated balloon beyond mid OM due to calcification. No dissection, no stents placed and pt had no symptoms . Successful PTCA/VIKY to mid LCX with 2.25 x 12 Promus Synergy, post dilated with a 2.25 x 8 NC Balloon; 75%-->0%, no dissection. ESRD (end stage renal disease) on dialysis (Chronic) Decubitus ulcer, stage III (Chronic) GABRIEL (obstructive sleep apnea) (Chronic) Depression (Chronic) Anxiety (Chronic) HTN (hypertension) (Chronic) S/P repair of PDA (patent ductus arteriosus) (Chronic) At young age Hyperlipidemia (Chronic) Obesity (BMI 30.0-34.9) (Chronic) Gastroparesis (Chronic) Hospital Course and Treatment Consultations 04/08/19 07:40 Consult: Onc/Wound/bingo usher Routine Comment: gangrene, colostomy Summary of Care Provided: Hospitalist note: Discharge summary above reviewed and I concur with the above discharge treatment plan. Patient was admitted for chest pain and she was found to have acute non-ST elevation CO. She underwent cardiac catheterization with PTCA/VIKY to mid left circumflex. She was treated with aspirin, Plavix, statins, nitrate, blockers and losartan. Her 2D echocardiogram revealed ejection fraction of 25%, stage II diastolic dysfunction. Patient does have a history of peripheral vascular disease with gangrene of the distal right fourth finger as well as multiple toes. Patient was started on Augmentin and doxycycline as outpatient which was continued. Vascular surgery consulted and recommended right upper extremity and right lower extremity arterial duplex which was done during this hospital stay and it was pending at the time of discharge. Patient had a history of ESRD on hemodialysis which was continued according to nephrology recommendations. Upon discharge, her vital signs are stable and her pulse ox was 95% on 2 L. Patient has been on oxygen at home at 2 L. Patient discharged home in a stable medical condition, discharged on aspirin, statins, Plavix, started on Coreg and losartan, plan to follow-up with vascular surgery as outpatient regarding the results of the right and lower upper extremities arterial duplex, plan to follow-up with cardiology in 2 weeks, follow-up with nephrology according to their recommendations, recommended follow-up with PCP in 1 week. - Physical Exam General: Alert, Oriented x3, Cooperative, No apparent distress. HEENT: Atraumatic, PERRLA, EOMI. Neck: Supple, No JVD, Negative Carotid Bruits, Trachea Midline, Thyroid Normal. Lungs: Decreased breath sounds bilateral, more at the bases, no rhonchi, No wheeze, No rales. Cardiovascular: Regular rate, Regular Rhythm, Normal S1, Normal S2, PMI Normal. Abdomen: Bowel Sounds Present, Soft, Non Tender, Non-Distended, No Hepato-splenomegaly. Extremities: No clubbing, No cyanosis, No edema Skin: Dry gangrene of the distal fingers and toes. Neurological: Cranial nerves are intact, neuro grossly intact. This note was generated with [employer] dictation software. It may contain incorrect words, spelling, and punctuation that were not noted in checking the note before signing. - Physical Exam Vital Signs Temp Pulse Resp BP Pulse Ox 97.7 F L 85 16 107/46 L 95 04/10/19 14:00 04/10/19 14:00 04/10/19 14:00 04/10/19 14:00 04/10/19 14:00 Oxygen Flow Rate (L/min) 2 Oxygen Delivery Method Nasal Cannula Weight: 199 lb 8.293 oz Body Mass Index (BMI) 31.9 Finger Stick Blood Glucose 118 Intake and Output for Last 24 Hours 04/08/19 04/09/19 04/10/19 23:59 23:59 23:59 Intake Total 2444.30 / 2444.30 620 / 1620 1360 / 1360 Output Total 4545 / 4545 Balance -2100.70 / -2100.70 620 / 1620 1360 / 1360 Laboratory Tests Past 24 Hrs 04/10/19 04/10/19 06:36 06:36 WBC 9.2 RBC 2.34 L Hgb 7.9 L Hct 26.7 L MCV 114.1 H MCH 33.8 H MCHC 29.6 L RDW Std Deviation 73.0 H RDW Coeff of Scott 17.7 H Plt Count 111 L MPV 9.5 Differential Comment SCANNED Sodium 138 Potassium 5.4 H Chloride 100 Carbon Dioxide 24.0 Anion Gap 14 BUN 76 H Creatinine 8.84 H* Estim Creat Clear Calc 7.52 Est GFR (MDRD) Af Amer 6 L Est GFR (MDRD) Non-Af 5 L BUN/Creatinine Ratio 8.6 L Glucose 194 H Calcium 9.1 POC Glucose 04/10/19 04/10/19 04/10/19 12:47 06:38 03:12 POC Glucose 150 H 208 H 169 H 04/09/19 04/09/19 22:26 16:47 POC Glucose 206 H 221 H Disposition: Home Minutes spent on discharge:: 33 Patient Condition:: Stable Meaningful Use Info Meaningful Use Diagnoses (Choose all that apply): AMI - AMI Aspirin given w/in 24hrs of arrival?: Yes ASA at discharge?: Yes Statins at discharge?: Yes Paulino/ARB at discharge?: Yes Beta Chang at discharge?: Yes Done w/ Acute CO measure.: Yes Documented LVEF (%): 25 Code Visit Inpatient E&M: 38833 Disch Hosp
--- NOTE | 2019-04-10 14:35 | CASEMGMT ---
Call to Wendy at [facility] and she is aware of pt up for discharge today, voices understanding. Resumption of care order previously entered and PT/OT, SW added. Wendy also aware that pt now connected with CM thru [facility]. D/C summ and instructions faxed to Gilda Rizzo CM at [facility] and message left with Gilda Rizzo to notify her of pt discharge. Monik TEJADA CM
--- NOTE | 2019-04-10 15:28 | PCM.HP.ID ---
Problem List (1) Raynaud's disease with gangrene Status: Chronic Reason for Consult: gangrene Consulted by: Dr. Soler History of Present Illness: The patient is a 43 year old F with PAD, Raynaud's, ESRD, who presented with sudden onset chest pain, not feeling well. Admitted for NSTEMI and taken to lab aide. Was admitted to [facility] about 3 weeks ago, sent out on doxy and augmentin for gangrene of fingers and toe. No abd pain with abx. Has ostomy. Completing abx today. No drainage from fingers. Full ROS performed and neg except as noted above. - Medical History Past Medical History (Chronic Problems): Chronic Problems (Last Reviewed 04/10/19 @ 11:25 by Jordin Cruz MD) S/P PTCA (percutaneous transluminal coronary angioplasty) (Chronic 04/08/19) PCI to mid LCX ISR with 2.0 and 2.25 NC balloon, unable to cross with 2.0 X 10 Angiosculpt. 04/08/2019 Raynaud's disease with gangrene (Chronic) Peripheral arterial disease (Chronic) Acute on chronic systolic (congestive) heart failure (Chronic) Ischemic cardiomyopathy (Chronic) EF in December 2018 on a stress test was 29% with extensive wall motion abnormalities COPD (chronic obstructive pulmonary disease) (Chronic) Elevated troponin I level (Chronic) Anemia due to chronic kidney disease (Chronic) CAD (coronary artery disease) (Chronic) Stented coronary artery (Chronic 01/28/19) FFR of LAD 0.82; VIKY of mid LAD with 2.5 X 24 mm Promus Synergy, OM <50% stenosis per Dr. Magdaleno @ [facility];Occluded mid LAD stent with L to R collaterals. Double vessel CAD of the LCX and OM#1 Segmented LV systolic dysfunction- Severe LVEF: by LV gram 25 % Elevated Left Ventricular End Diastolic Pressure Successful PCI with PTCA to the proximal OM#1 with a 1.5 and 2.0 mm balloon; unable to advance new deflated balloon beyond mid OM due to calcification. No dissection, no stents placed and pt had no symptoms . Successful PTCA/VIKY to mid LCX with 2.25 x 12 Promus Synergy, post dilated with a 2.25 x 8 NC Balloon; 75%-->0%, no dissection. ESRD (end stage renal disease) on dialysis (Chronic) Decubitus ulcer, stage III (Chronic) GABRIEL (obstructive sleep apnea) (Chronic) Depression (Chronic) Anxiety (Chronic) HTN (hypertension) (Chronic) S/P repair of PDA (patent ductus arteriosus) (Chronic) At young age Hyperlipidemia (Chronic) Obesity (BMI 30.0-34.9) (Chronic) Gastroparesis (Chronic) Allergies/Adverse Reactions: Allergies latex Allergy (Verified 03/19/19 21:59) Rash prochlorperazine [From Compazine] Allergy (Verified 03/19/19 21:59) Unknown levofloxacin [From Levaquin] Adverse Reaction (Verified 03/19/19 21:59) PT CAN'T REMEMBER PT CAN'T REMEMBER metoclopramide HCl [From Reglan] Adverse Reaction (Verified 03/19/19 21:59) Nausea NSAIDS (Non-Steroidal Anti-Inflamma Adverse Reaction (Verified 03/19/19 21:59) kidney function Home Medications: Ambulatory Orders Medication Instructions Recorded Aspirin [Aspirin, Baby] 81 mg PO DAILY@0800 01/26/16 Ergocalciferol [Vitamin D] 50,000 unit PO QWEEK 01/26/16 Insulin Aspart [Novolog Flexpen] 10 units SC TIDCM 01/26/16 Insulin Glargine,Hum.rec.anlog 5 unit SQ QHS 01/09/17 [Lantus] Sodium Bicarbonate 650 mg PO 4X/DAY 03/29/17 Atorvastatin Calcium [Lipitor] 10 mg PO QHS 05/26/18 Pantoprazole Sodium [Protonix] 20 mg PO BID 05/26/18 Clopidogrel Bisulfate [Plavix] 75 mg PO DAILY 07/01/18 ALPRAZolam [Xanax] 0.5 mg PO MOWEFR PRN 08/09/18 B Complex W-C No.20/Folic Acid 1 mg PO MOWEFR 08/09/18 [Nephrocaps Softgel] Fluoxetine HCl 40 mg PO DAILY 08/09/18 Lidocaine/Prilocaine HCl [Emla 1 applicatio TOPICAL MOWEFR 10/01/18 Cream W/Tegaderm] Nystatin Powder [Mycostatin Powder] 1 applic TOPICAL BID PRN 10/14/18 hydrOXYzine tablet [Atarax tablet] 10 mg PO MOWEFR 11/06/18 Sodium Chloride 0.65% [[place] Nasal 2 spray NASAL TID PRN PRN 12/14/18 [place]] spray.btl Acetaminophen [Tylenol Tablet] 650 mg PO Q6H PRN PRN tab 01/29/19 Nitroglycerin (INPATIENT USE) 0.4 mg SUBLINGUAL Q5M PRN #10 01/29/19 [Nitrostat] tab.subl amlodipine 2.5 mg tablet 2.5 mg PO DAILY 02/28/19 Hydrocodone Bitart/Apap 5-325 2 tab PO Q6H PRN PRN 03/19/19 [[place] 5/325] Sucroferric Oxyhydroxide [Velphoro] 1,500 mg PO TIDCM 04/07/19 Carvedilol [Coreg (Beta Chang)] 6.25 mg PO BID #60 tab 04/10/19 Losartan Potassium [Cozaar] 12.5 mg PO DAILY #30 tab 04/10/19 - Social History SMOKING STATUS:: Former smoker Vital Signs Temp Pulse Resp BP Pulse Ox 97.7 F L 85 16 107/46 L 95 04/10/19 14:00 04/10/19 14:00 04/10/19 14:00 04/10/19 14:00 04/10/19 14:00 Oxygen Flow Rate (L/min) 2 Oxygen Delivery Method Nasal Cannula Weight: 90.5 kg Body Mass Index (BMI) 31.9 Finger Stick Blood Glucose 118 Laboratory Tests Past 24 Hrs 04/10/19 04/10/19 06:36 06:36 WBC 9.2 RBC 2.34 L Hgb 7.9 L Hct 26.7 L MCV 114.1 H MCH 33.8 H MCHC 29.6 L RDW Std Deviation 73.0 H RDW Coeff of Scott 17.7 H Plt Count 111 L MPV 9.5 Differential Comment SCANNED Sodium 138 Potassium 5.4 H Chloride 100 Carbon Dioxide 24.0 Anion Gap 14 BUN 76 H Creatinine 8.84 H* Estim Creat Clear Calc 7.52 Est GFR (MDRD) Af Amer 6 L Est GFR (MDRD) Non-Af 5 L BUN/Creatinine Ratio 8.6 L Glucose 194 H Calcium 9.1 - Other Studies Radiology: [] reviewed Other Studies: [] Route of nutrition/ use of supplements: [] Nutritional Intake: [] IV Site: [] Meyer Catheter: [] - Physical Exam General: Alert, Oriented x3, Cooperative, No apparent distress HEENT: Atraumatic, PERRLA, EOMI Neck: Supple, No Nodes Lungs: Clear to auscultation, Normal air movement Cardiovascular: Regular rate, Regular Rhythm Abdomen: Soft, Non Tender, Non-Distended Extremities: Diminished Peripheral Pulses, Edema Skin: - - dry gangrene on fingers and toe IV Site: Peripheral, without redness Musculoskeletal: No Tenderness to Palpation of Joints or Extremities Neurological: Cranial nerves II-XII grossly intact - Assessment/Plan Antibiotics: [] Assessment/Plan: [] Dry gangrene - completing course of abx with doxy and augmentin as planned from last hospital stay. Will follow as needed, thank you, d/w primary team.
[2019-04-10] MEDS: Doxycycline 100 MG CAPSULE PO (15:47)
[2019-04-10] MEDS: Pantoprazole Sodium 20 MG Tablet PO (15:47)
[2019-04-10] MEDS: FLUoxetine 20 MG Capsule 40 MG PO (15:48)
[2019-04-10] MEDS: Folic Acid/Vitamin B Comp W-C 1 Capsule 1 CAP PO (15:48)
[2019-04-10] MEDS: Aspirin 81 MG TAB.CHEW PO (15:48)
[2019-04-10] MEDS: Clopidogrel Bisulfate 75 MG Tablet PO (15:48)
[2019-04-10] MEDS: Sodium Bicarbonate 650 MG Tablet PO (15:48)
[2019-04-10] MEDS: hydrOXYzine 10 MG Tablet PO (15:48)
--- NOTE | 2019-04-18 09:58 | CL.I_ITS ---
Patient Name: KOURTNEY REZA Study Date: 04/08/2019 Performing: Mark Magdaleno MD Ht: 66 inches 168 cm : 1975 Wt: 198.7 lbs 90 kg Age: 43 Gender: female BSA: 2 PROCEDURE(S) PERFORMED HM25-VSR/COR/LV [id number], SINGLE CORONARY ARTERY CLINICAL PROFILE AND CO-MORBIDITIES Indications: ACS <= 24 hrs, Stable Known CAD, LV Dysfunction Heart Failure: NYHA Class: 2, Newly Diagnosed: No, Heart Failure Type: Systolic Stress/Imaging Stress/Image Study Performed: No Angina Classification Anginal Classification w/in 2 Weeks: No symptoms CAD Presentations: Unstable angina. Non-STEMI. Symptom onset Date/Time: 04/07/2019 Time Not Availa ble Comorbidities/Risk Factors: Hypertension Dyslipidemia Prior PCI Diabetes Mellitus: Diabetes Therapy: Oral Peripheral Arterial Disease CONCLUSIONS Double vessel CAD of the LCX, PL branch of RCA. Non obstructive coronary arteries LVEF: by LV gram 10 % Depressed Left Ventricular systolic function - Severe Successful PCI with PTCA to the mid LCX ISR with 2.0 and 2.25 NC balloon; unable to cross with 2.0 x 10 Angiosculpt; 85%-->30%, no disseciton or angina during inflation. RECOMMENDATIONS Referred for immediate PCI Risk factor modification Plavix for at least 12 months Management as per referring Tour Bus Driver PCI of LCX ISR, then PCI of PL branch if pt does not tolerate hemodialysis. Will consider IABP if pt does not perfuse HD machine. Highly recommend quitting all tobacco products Follow up with primary sandwich maker Risk factor modification ASA Indefinitley Plavix for at least 12 months Routine post interventional care Refer for Outpatient Cardiac Rehab Manual sheath removal per protocol Follow up with Dr. Magdaleno Medical management of PL Branch unless or until pt has anginal symptoms or is unable to tolerate HD. DESCRIPTION OF PROCEDURE The patient arrived to the procedure lab. The risks and benefits of the procedure as well as a full d escription of our services here and lack of surgical backup were fully explained to the patient and/o r their significant other prior to the catheterization. The Timeout was completed, verifying the logan ect patient and procedure. The patient's procedural site was prepped and draped in the usual fashion. Local anesthetic was given subcutaneously to right groin region with Lidocaine 2%. Using a modified Seldinger technique, arterial access was obtained via the right femoral artery, a 4Fr sheath was inse rted. Left Coronary Artery selective angiography was performed in multiple views using a 4 Fr. JL5 c atheter. Right Coronary Artery selective angiography was then performed in multiple views using a 4 F r. 3DRC catheter. Left Ventriculography was performed in GARRIDO projection using a 4 Fr. Pigtail cathete r. LV to AO pullback pressures were then recorded Arterial sheath was exchanged for a 6 Fr Sheath. EBU 3.75 Guide catheter was inserted and engaged into the LCA. BMW Delia Guide wire was advanced to the Circumflex. Angiogram performed pre ballo on dilatation. Emerge 2.0 x 8 Balloon catheter was inserted. Balloon catheter was advanced across les ion in the circumflex, mid. PTCA balloon inflated at 8 atms for 10 secs. PTCA balloon inflated at 10 atms for 15 secs. PTCA balloon inflated at 10 atms for 12 secs. Angiogram performed post balloon dila tation. NC Emerge 2.25 x 8 Balloon catheter was inserted. Balloon catheter was advanced across lesion in the circumflex, mid. PTCA balloon inflated at 10 atms for 18 secs. PTCA balloon inflated at 14 at ms for 22 secs. Angiogram performed post balloon dilatation. Angiosculpt 2.0 x 10 Balloon catheter wa s inserted. NC Emerge 2.25 x 8 Balloon catheter was reinserted Balloon catheter was advanced across l esion in the circumflex, mid. PTCA balloon inflated at 14 atms for 16 secs. PTCA balloon inflated at 14 atms for 8 secs. The arterial sheath was sutured in place and capped CORONARY ANGIOGRAPHY DOMINANCE: Right Dominant LEFT HEART ASSESSMENT Left Ventricular Ejection Fraction: by LV Gram 10 % Depressed Left Ventricular systolic function LVEDP: 22 mmHg Elevated Left Ventricular End Diastolic Pressure Global Hypokinesis - Severe LEFT MAIN: Angiographically normal LEFT ANTERIOR DESCENDING ARTERY: MID LAD: Previously placed stent is occluded CIRCUMFLEX ARTERY: MID CIRC: Previously placed stent has an instent 85 % restenosis RIGHT CORONARY ARTERY: MID RCA: Mild luminal irregularities less than 30% RT PLV: 85 % Stenosis RT PDA: Ostial - is occluded INTERVENTION INFORMATION LESION SITE: Circumflex (Mid) Lesion Complexity: Non-High/Non-C, lesion at bifurcation: No, thrombus present: No, lesion length: 8 mm, culprit lesion: Yes Pre Stenosis: 85 % Pre intervention MARIANA flow: 3 PROCEDURE: Balloon Angioplasty Post Stenosis: 20 % Post intervention MARIANA flow: 3 Lesion Devices: Medtronic 6 Fr EBU3.75 100cm Guide Catheter Bailey .014 BMW Delia Straight 190cm Edward Sci EMERGE MR 2.00x08 BALLOON Edward Sci NC EMERGE MR 2.25x08 BALLOON [employer] Angiosculpt RX 2.0x10 Scoring Balloon COMPLICATIONS No Complications PROCEDURE MEDICATIONS Oxygen: 5 L/min via nasal cannula Heparin 6000 unit(s) IV 04/08/2019 08:15:14 IV Bolus: .9 NaCl 450 ml total 04/08/2019 07:57:30 SUMMARY OF HEMODYNAMIC DATA Time AIR REST ECG 07:45:01 AO 96/51 (66) SA 08:00:23 LV 94/6, 22 08:06:01 LV 95/8, 23 08:06:08 LVp 96/5, 22 08:06:08 AOp 102/56 (73) 08:06:13 LV 104/58, 61 08:06:23 Signed By Mark Magdaleno MD On 04/08/2019 8:54:26 AM Mark Magdaleno MD
--- NOTE | 2019-04-30 12:50 | CRPHASE1 ---
Risk Factors/Lifestyle Family History: Family History (Last Reviewed 04/22/19 @ 18:03 by Pricila Olson) Father Diabetes Mother CVA (cerebral vascular accident) Hypertension Diabetes Cancer Cardiac Rehabilitation Info Cardiac Rehabilitation Program Information: Cardiac Rehabilitation is important for patients like you who are recovering from a heart problem. Cardiac rehabilitation programs are recognized as integral to the continued care of the patient with coronary heart disease. The cardiac rehabilitation program is designed to optimize a patient's physical, psychological, and social functioning. Health managed care nurse work in cardiac rehabilitation programs and assist you with getting the treatments you need to get stronger and healthier - like exercise, healthy eating habits, and medications. Cardiac rehabilitation has been show to help people with heart problems live longer and have better life enjoyment than people who do not go to cardiac rehabilitation. Please contact the Cardiac Rehabilitation Program at [facility] at in two weeks if you have not heard from them.
== END 2019-04-10 17:11 | disposition home or self-care (01) | DRG 250 ==
LOC: PCU 04-08 07:38 → ICU 04-08 08:39 → PCU 04-09 15:52
PROVIDERS: Family Medicine; Internal Medicine Cardiovascular Disease; Internal Medicine Nephrology; Nurse Practitioner Family; Specialist; Admitting Provider Student in an Organized Health Care Education/Training Program; Family Provider Family Medicine; PCP Family Medicine; Visit Provider Hospitalist
DX: I21.4 Non-ST elevation (NSTEMI) myocardial infarction (principal); N18.6 End stage renal disease; E11.52 Type 2 diabetes mellitus with diabetic peripheral angiopathy with gangrene; I96 Gangrene, not elsewhere classified; N25.81 Secondary hyperparathyroidism of renal origin; I50.42 Chronic combined systolic (congestive) and diastolic (congestive) heart failure; I13.2 Hypertensive heart and chronic kidney disease with heart failure and with stage 5 chronic kidney disease, or end stage renal disease; J96.11 Chronic respiratory failure with hypoxia; T82.858A Stenosis of other vascular prosthetic devices, implants and grafts, initial encounter; E78.5 Hyperlipidemia, unspecified; E11.22 Type 2 diabetes mellitus with diabetic chronic kidney disease; E11.43 Type 2 diabetes mellitus with diabetic autonomic (poly)neuropathy; K31.84 Gastroparesis; J44.9 Chronic obstructive pulmonary disease, unspecified; E66.01 Morbid (severe) obesity due to excess calories; G47.33 Obstructive sleep apnea (adult) (pediatric); D63.1 Anemia in chronic kidney disease; F32.9 Major depressive disorder, single episode, unspecified; Z99.2 Dependence on renal dialysis; F41.9 Anxiety disorder, unspecified; F17.200 Nicotine dependence, unspecified, uncomplicated; Z93.3 Colostomy status; Z68.31 Body mass index [BMI] 31.0-31.9, adult; Z87.74 Personal history of (corrected) congenital malformations of heart and circulatory system; Z79.4 Long term (current) use of insulin
CPT/HCPCS: 36415; 80048; 80053; 82962; 84100; 84484; 85025; 85027; 85347; 85610; 85730; 90937; 92920; 93005; 93306; 93458; 93922; 93926; 93931; 97162; 97166; 97535; 97802; J1756; J7030; Q9957; A4216; C1725; C1769; C1887; C1894; C8929; G0257; J1610; J2405; Q5106; Q9967

== ENCOUNTER 2019-05-23 14:16 | Observation (INO) | payer MEDICARE, SELFPAY ==
[2019-05-23] VITALS (11 sets, daily range): BP systolic 77–115; BP diastolic 35–101; PULSE 81–109; RESP 18–24; TEMP 36.4–37.2; O2SAT 95–97; BMI 35.7; BMI 32.8
--- NOTE | 2019-05-23 14:43 | EKG12_ITS ---
Test Reason : CP Blood Pressure : / mmHG Vent. Rate : 109 BPM Atrial Rate : 109 BPM P-R Int : 136 ms QRS Dur : 104 ms QT Int : 372 ms P-R-T Axes : 033 094 212 degrees QTc Int : 500 ms Sinus tachycardia Nonspecific ST & T Wave abnormality Abnormal ECG Confirmed by CHEPE BEASLEY, KAITLYNN ([id number]), editorial writer LISBETH KIDD ([id number]) on 05/27/2019 9:30:44 AM Referred By: Roberto Roman Confirmed By:KAITLYNN MO MD
--- NOTE | 2019-05-23 14:49 | RAD_ITS ---
STUDY: X-RAY CHEST REASON FOR EXAM: Female, 43 years old. Chest pain. One week history of cough. TECHNIQUE: Single AP portable view of the chest. COMPARISON: Comparison is made with prior examination March 19, 2019. FINDINGS: EKG electrodes are seen. There is evidence of vascular congestion and CHF with bibasilar atelectasis. There is no demonstrated pleural abnormality. There is borderline cardiomegaly. Normal mediastinum and latrell. Normal visualized pulmonary arteries. Normal visualized aortic arch and descending thoracic aorta. Normal visualized thoracic spine. Normal visualized ribs, clavicles, and shoulders. There is no demonstrated abnormality of the visualized soft tissue structures of the upper abdomen. RAD/Chest 1 View (Portable) IMPRESSION: Vascular congestion and CHF. Electronically Signed: Josh Hill, at 15:12 EDT , Service support ,
[2019-05-23 14:53] LABS: Absolute Lymphocyte Count 0.66 X10^3/uL (0.83-4.51); Basophil# 0.03 X10^3/uL; Basophil% 0.4 % (0-1); Eosinophil# 0.11 X10^3/uL; Eosinophils% 1.5 % (0-5); Hemoglobin 9.9 g/dL (12.0-15.0); Lymphocyte # 0.66 X10^3/ul (4.0); Lymphocyte % 9.2 % (19-41); Mean Corpuscular Hgb 33.9 pg (27.0-32.0); Mean Platelet Vol. 10.2 fl (6.2-12.0); Monocyte% 4.2 % (0-10); NRBC Flagged by Analyzer 0 % (0-5); Neutrophil # 6.02 X10^3/uL (2.7-7.7); POSITIVE MORPHOLOGY YES; Platelet Count 134 K/mm3 (150-450); RBC Distribution Width CV 18.3 % (11.6-14.6); RBC Distribution Width SD 76.2 fl (35.1-43.9); Red Blood Count 2.92 M/mm3 (4.2-5.4); White Blood Count 7.2 K/mm3 (4.4-11.0)
[2019-05-23 15:03] LABS: Anion Gap 9 (5-15); BUN 30 mg/dL (7-18); BUN/Creat Ratio 6.5 RATIO (10-20); Calcium,Total 8.5 mg/dL (8.5-10.1); Chloride 96 mmol/L (98-107); Creatinine, Serum 4.62 mg/dL (0.55-1.02); EST Glomerular Filtration Rate 11 mL/min (>60); Est Glom Filt Rate - Afr Amer 13 mL/min (>60); Glucose 287 mg/dL (74-106); Potassium 3.7 mmol/L (3.5-5.1); Sodium Level 138 mmol/L (136-145)
[2019-05-23 15:06] LABS: Differential Indicated SCAN CRITERIA MET
--- NOTE | 2019-05-23 15:11 | ED.DCSUM_ITS ---
- ER Visit Summary Date of Service: 05/23/19 Chief Complaint: Chest pain History of Present Illness: The patient is a 43 F presenting with chest pain. This started 1.5 hours prior to arrival. Patient was in dialysis. States she made it through half of dialysis and started having chest pain. She feels s imilar to how she felt before her stents. She also complains of shortness of breath. She had a cough for 5 days. Denies fever. Denies other complaints. Physical Examination: Vitals are stable. Patient is afebrile. Alert no acute distress. HEENT exam is unremarkable. Neck is supple. Lungs are clear and equal bilaterally. Heart is regular rate and rhythm. Abdomen is soft nontender nondistended. Colostomy Extremities are unremarkable. Skin is warm and dry. No focal neurologic deficit. Remainder of exam is unremarkable. Emergency Department Course and Treatment: EKG sinus tachycardia rate of [address] depression, similar to previous. Patient was given aspirin, fentanyl. CBC normal except hemoglobin 9.9, platelet 134. Chemistries showed glucose 287, BUN 30, creatinine 4.62. Troponin 0.125. Chest x-ray shows CHF. On reevaluation, patient's pain is improved. Discussed with the hospitalist for observation. Disposition: Observation Impression: Chest pain This note was generated with [employer] dictation software. It may contain incorrect words, spelling, and punctuation that were not noted in review of the chart prior to signing ED Disposition - Plan for ED Patient: Referrals: Christopher Foy MD [Primary Care Provider] -
[2019-05-23] MEDS: fentaNYL 100 MCG/2 ML Ampul 50 MCG IV (15:26)
[2019-05-23 15:30] LABS: Anisocytosis 2+; Macrocytosis 2+; Platelet Estimate SLT DEC (ADEQ); Red Cell Morphology N CHROM NORMAL (NORM C&C)
--- NOTE | 2019-05-23 16:21 | NURSING ---
[address] [facility] OBS
--- NOTE | 2019-05-23 16:31 | PCM.HP.STD ---
Problem List (1) Chest pain Status: Acute Qualifiers: Chest pain type: unspecified Qualified Code(s): R07.9 - Chest pain, unspecified History of Present Illness Date of Admission: 05/23/19 Chief Complaint: chest pain The patient is a 43 year old F presents with chest pain while she was on dialysis. Chest pain was midsternal associated with diaphoresis and nausea. Chest pain similar to prior episodes. Her last month where she had a non-STEMI and required a stent to her stent that she already had in her circumflex. [] Past Medical History Past Medical History (Chronic Problems): Chronic Problems (Last Reviewed 04/22/19 @ 18:03 by Pricila Olson) S/P PTCA (percutaneous transluminal coronary angioplasty) (Chronic 04/08/19) PCI to mid LCX ISR with 2.0 and 2.25 NC balloon, unable to cross with 2.0 X 10 Angiosculpt. 04/08/2019 Raynaud's disease with gangrene (Chronic) Peripheral arterial disease (Chronic) Acute on chronic systolic (congestive) heart failure (Chronic) Ischemic cardiomyopathy (Chronic) EF in December 2018 on a stress test was 29% with extensive wall motion abnormalities COPD (chronic obstructive pulmonary disease) (Chronic) Elevated troponin I level (Chronic) Anemia due to chronic kidney disease (Chronic) CAD (coronary artery disease) (Chronic) Stented coronary artery (Chronic 01/28/19) FFR of LAD 0.82; VIKY of mid LAD with 2.5 X 24 mm Promus Synergy, OM <50% stenosis per Dr. Magdaleno @ [facility];Occluded mid LAD stent with L to R collaterals. Double vessel CAD of the LCX and OM#1 Segmented LV systolic dysfunction- Severe LVEF: by LV gram 25 % Elevated Left Ventricular End Diastolic Pressure Successful PCI with PTCA to the proximal OM#1 with a 1.5 and 2.0 mm balloon; unable to advance new deflated balloon beyond mid OM due to calcification. No dissection, no stents placed and pt had no symptoms . Successful PTCA/VIKY to mid LCX with 2.25 x 12 Promus Synergy, post dilated with a 2.25 x 8 NC Balloon; 75%-->0%, no dissection. ESRD (end stage renal disease) on dialysis (Chronic) Decubitus ulcer, stage III (Chronic) GABRIEL (obstructive sleep apnea) (Chronic) Depression (Chronic) Anxiety (Chronic) HTN (hypertension) (Chronic) S/P repair of PDA (patent ductus arteriosus) (Chronic) At young age Hyperlipidemia (Chronic) Obesity (BMI 30.0-34.9) (Chronic) Gastroparesis (Chronic) Medical History: Medical History (Last Reviewed 05/23/19 @ 16:33 by Roberto Roman DO) ESRD (end stage renal disease) on dialysis (Chronic) N18.6, Z99.2 Decubitus ulcer, stage III (Chronic) L89.93 GABRIEL (obstructive sleep apnea) (Chronic) G47.33 HTN (hypertension) (Chronic) I10 Hyperlipidemia (Chronic) E78.5 Obesity (BMI 30.0-34.9) (Chronic) E66.9 Gastroparesis (Chronic) K31.84 Allergies latex Allergy (Verified 05/23/19 14:19) Rash prochlorperazine [From Compazine] Allergy (Verified 05/23/19 14:19) Unknown levofloxacin [From Levaquin] Adverse Reaction (Verified 05/23/19 14:19) PT CAN'T REMEMBER PT CAN'T REMEMBER metoclopramide HCl [From Reglan] Adverse Reaction (Verified 05/23/19 14:19) Nausea NSAIDS (Non-Steroidal Anti-Inflamma Adverse Reaction (Verified 05/23/19 14:19) kidney function Home Medications: Ambulatory Orders Medication Instructions Recorded Aspirin [Aspirin, Baby] 81 mg PO DAILY@0800 01/26/16 Ergocalciferol [Vitamin D] 50,000 unit PO QWEEK 01/26/16 Insulin Aspart [Novolog Flexpen] 10 units SC TIDCM 01/26/16 Insulin Glargine,Hum.rec.anlog 5 unit SQ QHS 01/09/17 [Lantus] Sodium Bicarbonate 650 mg PO 4X/DAY 03/29/17 Pantoprazole Sodium [Protonix] 20 mg PO BID 05/26/18 Clopidogrel Bisulfate [Plavix] 75 mg PO DAILY 07/01/18 Fluoxetine HCl 40 mg PO DAILY 08/09/18 Lidocaine/Prilocaine HCl [Emla 1 applicatio TOPICAL MOWEFR 10/01/18 Cream W/Tegaderm] Nystatin Powder [Mycostatin Powder] 1 applic TOPICAL BID PRN PRN 10/14/18 hydrOXYzine tablet [Atarax tablet] 10 mg PO TUTHSA 11/06/18 Sodium Chloride 0.65% [[place] Nasal 2 spray NASAL TID PRN PRN 12/14/18 [place]] spray.btl Acetaminophen [Tylenol Tablet] 650 mg PO Q6H PRN PRN tab 01/29/19 Nitroglycerin (INPATIENT USE) 0.4 mg SUBLINGUAL Q5M PRN #10 01/29/19 [Nitrostat] tab.subl amlodipine 2.5 mg tablet 2.5 mg PO DAILY 02/28/19 Sucroferric Oxyhydroxide [Velphoro] 1,500 mg PO TIDCM 04/07/19 Losartan Potassium [Cozaar] 12.5 mg PO DAILY #30 tab 04/10/19 Atorvastatin Calcium [Lipitor] 40 mg PO QHS 05/23/19 Carvedilol 25 mg PO BID 05/23/19 Vitamin B Complex 1 cap PO DAILY 05/23/19 Surgical History: Surgical History (Last Reviewed 05/23/19 @ 16:33 by Roberto Roman DO) S/P PTCA (percutaneous transluminal coronary angioplasty) (Chronic) Onset Date: 04/08/19 Z98.61 PCI to mid LCX ISR with 2.0 and 2.25 NC balloon, unable to cross with 2.0 X 10 Angiosculpt. 04/08/2019 Stented coronary artery (Chronic) Onset Date: 01/28/19 Z95.5 FFR of LAD 0.82; VIKY of mid LAD with 2.5 X 24 mm Promus Synergy, OM <50% stenosis per Dr. Magdaleno @ [facility];Occluded mid LAD stent with L to R collaterals. Double vessel CAD of the LCX and OM#1 Segmented LV systolic dysfunction- Severe LVEF: by LV gram 25 % Elevated Left Ventricular End Diastolic Pressure Successful PCI with PTCA to the proximal OM#1 with a 1.5 and 2.0 mm balloon; unable to advance new deflated balloon beyond mid OM due to calcification. No dissection, no stents placed and pt had no symptoms . Successful PTCA/VIKY to mid LCX with 2.25 x 12 Promus Synergy, post dilated with a 2.25 x 8 NC Balloon; 75%-->0%, no dissection. 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: No pertinent ASSOCIATE RESEARCH SCIENTIST history Smoking Status: Current every day smoker Tobacco Use: Secondhand, Cigarettes - *Family History Maternal Family History: Family History (Last Reviewed 05/23/19 @ 16:33 by Roberto Roman DO) Father Diabetes Mother CVA (cerebral vascular accident) Hypertension Diabetes Cancer History Items: Cancer, COPD, Diabetes, Hypertension, Renal Disease, Stroke Paternal Family History: Family History (Last Reviewed 05/23/19 @ 16:33 by Roberto Roman DO) Father Diabetes Mother CVA (cerebral vascular accident) Hypertension Diabetes Cancer History Items: Diabetes, Heart Disease Sibling Family History: Family History (Last Reviewed 05/23/19 @ 16:33 by Roberto Roman DO) Father Diabetes Mother CVA (cerebral vascular accident) Hypertension Diabetes Cancer History Items: Cancer, Diabetes Review of Systems Constitutional: Denies: Anorexia, Chills, Fever, Night Sweats Eyes: Denies: Blurred vision, Double vision HEENT: Denies: Head Aches, Sinus Congestion, Sinus Drainage Cardiovascular: Reports: Chest Pain, Edema Respiratory: Reports: Shortness of Breath Gastrointestinal: Reports: Nausea. Denies: Abdominal Pain, Vomiting Genitourinary: Reports: - - And urine output. Denies: Dysuria, Frequency Musculoskeletal: Reports: Leg Pain. Denies: Joint Pain, Joint Tenderness Skin: Denies: Dryness, Lesions Psychiatric: Denies: Anxiety, Depression Endocrine: Denies: Change in Body Habitus, Heat/ Cold Intolerance Hematologic/ Lymphatic: Denies: Easy Bruising, Easy Bleeding, Hx of blood clot Comment: Review systems are otherwise negative except as mentioned above and in the HPI. VTE Information - Inpt Only VTE Present on Admission: No VTE Mechan Device Prophylaxis: None VTE Pharm Prophylaxis ordered?: No Reason prophylaxis not ordered:: Medical Contraindication Patient Problems: Active and Suspected Problems (Last Reviewed 04/22/19 @ 18:03 by Pricila Olson) Chest pain (Acute) - Physical Exam Vitals/I&O's: Vital Signs Temp Pulse Resp BP Pulse Ox 37.2 C 99 18 98/86 H 95 05/23/19 16:00 05/23/19 16:00 05/23/19 16:00 05/23/19 16:00 05/23/19 16:00 Oxygen Flow Rate (L/min) 2 Oxygen Delivery Method Nasal Cannula Weight: 100.4 kg Body Mass Index (BMI) 35.7 Finger Stick Blood Glucose 118 General: Alert, No apparent distress, - - Appears much older than stated age HEENT: Atraumatic, Normocephalic Oral: Moist Mucosa Neck: No Nodes, Thyroid Normal Size and Texture Lungs: Clear to auscultation, Normal air movement Cardiovascular: Regular rate, Regular Rhythm, Normal S1, Normal S2, No murmurs Abdomen: Bowel Sounds Present, Soft, Non Tender, Non-Distended Extremities: No Calf Tenderness, Edema Skin: No rashes, No breakdown Musculoskeletal: No Tenderness to Palpation of Joints or Extremities, No Muscle Wasting Neurological: Neuro grossly intact, Sensory exam intact to light touch and pain Psych/Mental Status: Appropriate, Flat Affect Laboratory Results 05/23/19 14:23: WBC 7.2, RBC 2.92 L, Hgb 9.9 L, Hct 33.0 L, MCV 113.0 H, MCH 33.9 H, MCHC 30.0 L, RDW Std Deviation 76.2 H, RDW Coeff of Scott 18.3 H, Plt Count 134 L, MPV 10.2, Immature Gran % (Auto) 0.700, Neut % (Auto) 84.0 H, Lymph % (Auto) 9.2 L, Bradford % (Auto) 4.2, Eos % (Auto) 1.5, Baso % (Auto) 0.4, Absolute Neuts (auto) 6.0, Absolute Lymphs (auto) 0.66 L, Nucleated RBC % 0, Platelet Estimate SLT DEC, RBC Morphology N CHROM, Anisocytosis 2+, Macrocytosis 2+ 05/23/19 14:23: Sodium 138, Potassium 3.7, Chloride 96 L, Carbon Dioxide 33.0 H, Anion Gap 9, BUN 30 H, Creatinine 4.62 H, Estim Creat Clear Calc 14.40, Est GFR (MDRD) Af Amer 13 L, Est GFR (MDRD) Non-Af 11 L, BUN/Creatinine Ratio 6.5 L, Glucose 287 H, Calcium 8.5, Troponin I 0.125 H Clinical Impression(s) from Imaging Studies Chest X-Ray 05/23/19 14:49 IMPRESSION: Vascular congestion and CHF. Electronically Signed: Josh Hill, at 15:12 EDT , Service support , Assessment/Plan All Active Problems (Last Reviewed 04/22/19 @ 18:03 by Pricila Olson) Chest pain (Acute) 1. Chest pain Atypical but patient states that it is consistent with prior episodes that she has had Patient previously underwent a new stent to the in-stent stenosis that she had in her circumflex back in March states that she has been compliant with her medications. Plan right now is just to cycle her troponins. I spoke with Dr. Willis informed him of the consult. Patient will be evaluated on May 24 Will check duplex of her left lower extremities patient stated that it is gotten more swollen recently. 2. End-stage renal disease Dialysis when the chest pain occurred Did not complete dialysis Will consult nephrology for resumption of dialysis 3. Ischemic cardiomyopathy EF of 10% from last left ventriculogram from heart catheterization 4. Diabetes mellitus type 2 Continue with her basal and prandial insulin. Start sliding scale insulin. 5. VTE prophylaxis: Low risk as she is observation status at this point in time. Code Visit OBSV E&M: [id number] Initial observation care L3
--- NOTE | 2019-05-23 18:29 | VDLE_ITS ---
Reason For Study: EDEMA Procedure LEFT Exam performed portable in patient room. GSV is normal. The study was technically limited. CFV is compressible, spontaneous, phasic, A preliminary report was called and/or faxed competent, and demonstrates normal to PCU. augmentation. FV is compressible, spontaneous, phasic, competent and demonstrates normal augmentation. POP V is compressible, spontaneous, phasic, competent and demonstrates normal augmentation. T/P Trunk is compressible. Very limited visability of Left PTV and PeroV due to edema and pt pain tolerance. Distal veins appear compressible. Interpretation Summary Deep veins of the left lower extremity are patent and compressible segmentally. There is no evidence of left lower extremity deep vein thrombosis. Valvular competence appears intact within the proximal deep venous system on the left . The left great saphenous vein appears patent and compressible segmentally. The left posterior tibial vein and peroneal vein were not well visualized due to edema and pain intolerance. Ordering Physician: Roberto Roman Referring Physician: RIC MCCRARY Performed By: Marika Acevedo, PORTILLOCS, RVT
--- NOTE | 2019-05-23 18:42 | EKG12_ITS ---
Test Reason : CP Blood Pressure : / mmHG Vent. Rate : 093 BPM Atrial Rate : 093 BPM P-R Int : 130 ms QRS Dur : 106 ms QT Int : 408 ms P-R-T Axes : 060 075 227 degrees QTc Int : 507 ms Normal sinus rhythm Poor R wave progression Prolonged QT Nonspecific T wave abnormality Abnormal ECG Confirmed by CHEPE BEASLEY, KAITLYNN ([id number]), publishing editor SHANIA SOLITARIO ([id number] on 05/28/2019 8:51:41 AM Referred By: Roberto Roman Confirmed By:KAITLYNN MO MD
[2019-05-23] MEDS: Acetaminophen 325 MG Tablet 650 MG PO (20:10)
[2019-05-23] MEDS: Ondansetron 4 MG/2 ML Vial IV (20:10)
[2019-05-23] MEDS: Insulin Lispro 100 UNIT/ML INSULN.PEN 10 UNIT SC (20:11)
[2019-05-23] MEDS: Sodium Bicarbonate 650 MG Tablet PO (20:12)
[2019-05-23 20:31] LABS: Bedside Glucose 211 mg/dL (70-110)
[2019-05-23] MEDS: Pantoprazole Sodium 20 MG Tablet PO (21:42)
[2019-05-23] MEDS: Atorvastatin Calcium 40 MG Tablet PO (21:42)
[2019-05-23] MEDS: Carvedilol 25 MG Tablet PO (21:43)
[2019-05-23] MEDS: oxyCODONE 5 MG Tablet PO (22:33)
[2019-05-23] MEDS: proMETHazine 25 MG/ML Syringe 12.5 MG IM (22:39)
[2019-05-24] MEDS: oxyCODONE 5 MG Tablet 10 MG PO ×2 (02:24→13:42)
[2019-05-24 03:14] VITALS: PULSE 73
[2019-05-24 03:40] VITALS: BP 95/28; PULSE 72; RESP 20; TEMP 36.4; O2SAT 98
[2019-05-24 06:25] LABS: Anion Gap 13 (5-15); BUN 44 mg/dL (7-18); BUN/Creat Ratio 7.9 RATIO (10-20); Calcium,Total 8.4 mg/dL (8.5-10.1); Chloride 98 mmol/L (98-107); EST Glomerular Filtration Rate 9 mL/min (>60); Est Glom Filt Rate - Afr Amer 11 mL/min (>60); Estimated Creatinine Clearance 11.88 ml/min; Glucose 83 mg/dL (74-106); Potassium 4.1 mmol/L (3.5-5.1); Sodium Level 142 mmol/L (136-145)
[2019-05-24] MEDS: Acetaminophen 325 MG Tablet 650 MG PO (06:40)
[2019-05-24 07:51] VITALS: PULSE 73
[2019-05-24 09:40] VITALS: BP 103/87; PULSE 79; RESP 18; TEMP 36.6; O2SAT 96
[2019-05-24] MEDS: Aspirin 81 MG TAB.CHEW PO (13:38)
[2019-05-24] MEDS: Losartan Potassium 25 MG Tablet 12.5 MG PO (13:38)
--- NOTE | 2019-05-24 13:38 | CASEMGMT ---
SW assisted pt in completing POA form, pt deferred completing LW at this time. Pt listed her mother Courtney Hull as POA. SW gave pt the originals, copies, and a copy of the LW with the number to the SW dept in the event she would like to make an appt to complete the form at a later time. FRANCISCO Andrade
[2019-05-24] MEDS: amLODIPine 2.5 MG Tablet PO (13:39)
[2019-05-24] MEDS: FLUoxetine 20 MG Capsule 40 MG PO (13:39)
[2019-05-24] MEDS: Clopidogrel Bisulfate 75 MG Tablet PO (13:39)
[2019-05-24] MEDS: Sodium Bicarbonate 650 MG Tablet PO (13:39)
[2019-05-24 13:51] LABS: Bedside Glucose 91 mg/dL (70-110)
--- NOTE | 2019-05-24 14:11 | PCM.CONS.C ---
Problem List (1) Chest pain Status: Acute Qualifiers: Chest pain type: unspecified Qualified Code(s): R07.9 - Chest pain, unspecified (2) Elevated troponin I level Status: Chronic Reason for Consult Date of Consultation: 05/24/19 History of Present Illness: The patient is a 43 year old F with multiple medical problems presents with chest pain while she was on dialysis. Chest pain was midsternal associated with diaphoresis and nausea. Chest pain similar to prior episodes. Patient has a complex cardiac history. She had PCI to the LAD in February 2018. Subsequently and an angiogram from January 2019 the LAD was occluded. During that time she had stent to circumflex and PCI of OM 1. She underwent angiogram again in March 2019 which showed restenosis within the circumflex stent and she had PTCA alone at that time. Patient was doing fairly well after that and had one episode of chest pain day before yesterday. She has not had further episodes of chest pain. Her troponin was slightly elevated. However it was lower than it had been in the past with similar presentations. She does have bilateral lower extremity edema as well. She has severely decreased LV systolic function as well. Review of systems: All systems reviewed. All else is negative except that in the HPI. Past Medical History Allergies/Adverse Reactions: Allergies latex Allergy (Verified 05/23/19 14:19) Rash prochlorperazine [From Compazine] Allergy (Verified 05/23/19 14:19) Unknown levofloxacin [From Levaquin] Adverse Reaction (Verified 05/23/19 14:19) PT CAN'T REMEMBER PT CAN'T REMEMBER metoclopramide HCl [From Reglan] Adverse Reaction (Verified 05/23/19 14:19) Nausea NSAIDS (Non-Steroidal Anti-Inflamma Adverse Reaction (Verified 05/23/19 14:19) kidney function Home Medications: Ambulatory Orders Medication Instructions Recorded Aspirin [Aspirin, Baby] 81 mg PO DAILY@0800 01/26/16 Ergocalciferol [Vitamin D] 50,000 unit PO QWEEK 01/26/16 Insulin Aspart [Novolog Flexpen] 10 units SC TIDCM 01/26/16 Insulin Glargine,Hum.rec.anlog 5 unit SQ QHS 01/09/17 [Lantus] Sodium Bicarbonate 650 mg PO 4X/DAY 03/29/17 Pantoprazole Sodium [Protonix] 20 mg PO BID 05/26/18 Clopidogrel Bisulfate [Plavix] 75 mg PO DAILY 07/01/18 Fluoxetine HCl 40 mg PO DAILY 08/09/18 Lidocaine/Prilocaine HCl [Emla 1 applicatio TOPICAL MOWEFR 10/01/18 Cream W/Tegaderm] Nystatin Powder [Mycostatin Powder] 1 applic TOPICAL BID PRN PRN 10/14/18 hydrOXYzine tablet [Atarax tablet] 10 mg PO TUTHSA 11/06/18 Sodium Chloride 0.65% [[place] Nasal 2 spray NASAL TID PRN PRN 12/14/18 [place]] spray.btl Acetaminophen [Tylenol Tablet] 650 mg PO Q6H PRN PRN tab 01/29/19 Nitroglycerin (INPATIENT USE) 0.4 mg SUBLINGUAL Q5M PRN #10 01/29/19 [Nitrostat] tab.subl amlodipine 2.5 mg tablet 2.5 mg PO DAILY 02/28/19 Sucroferric Oxyhydroxide [Velphoro] 1,500 mg PO TIDCM 04/07/19 Losartan Potassium [Cozaar] 12.5 mg PO DAILY #30 tab 04/10/19 Atorvastatin Calcium [Lipitor] 40 mg PO QHS 05/23/19 Carvedilol 25 mg PO BID 05/23/19 Vitamin B Complex 1 cap PO DAILY 05/23/19 Past Medical History (Chronic Problems): Chronic Problems (Last Reviewed 05/23/19 @ 16:33 by Roberto Roman DO) S/P PTCA (percutaneous transluminal coronary angioplasty) (Chronic 04/08/19) PCI to mid LCX ISR with 2.0 and 2.25 NC balloon, unable to cross with 2.0 X 10 Angiosculpt. 04/08/2019 Raynaud's disease with gangrene (Chronic) Peripheral arterial disease (Chronic) Acute on chronic systolic (congestive) heart failure (Chronic) Ischemic cardiomyopathy (Chronic) EF in December 2018 on a stress test was 29% with extensive wall motion abnormalities COPD (chronic obstructive pulmonary disease) (Chronic) Elevated troponin I level (Chronic) Anemia due to chronic kidney disease (Chronic) CAD (coronary artery disease) (Chronic) Stented coronary artery (Chronic 01/28/19) FFR of LAD 0.82; VIKY of mid LAD with 2.5 X 24 mm Promus Synergy, OM <50% stenosis per Dr. Magdaleno @ [facility];Occluded mid LAD stent with L to R collaterals. Double vessel CAD of the LCX and OM#1 Segmented LV systolic dysfunction- Severe LVEF: by LV gram 25 % Elevated Left Ventricular End Diastolic Pressure Successful PCI with PTCA to the proximal OM#1 with a 1.5 and 2.0 mm balloon; unable to advance new deflated balloon beyond mid OM due to calcification. No dissection, no stents placed and pt had no symptoms . Successful PTCA/VIKY to mid LCX with 2.25 x 12 Promus Synergy, post dilated with a 2.25 x 8 NC Balloon; 75%-->0%, no dissection. 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 - *Family History Maternal Family History: Family History (Last Reviewed 05/23/19 @ 16:33 by Roberto Roman DO) Father Diabetes Mother CVA (cerebral vascular accident) Hypertension Diabetes Cancer History Items: Cancer, COPD, Diabetes, Hypertension, Renal Disease, Stroke Paternal Family History: Family History (Last Reviewed 05/23/19 @ 16:33 by Roberto Roman DO) Father Diabetes Mother CVA (cerebral vascular accident) Hypertension Diabetes Cancer History Items: Diabetes, Heart Disease Sibling Family History: Family History (Last Reviewed 05/23/19 @ 16:33 by Roberto Roman DO) Father Diabetes Mother CVA (cerebral vascular accident) Hypertension Diabetes Cancer History Items: Cancer, Diabetes Smoking Status: Current every day smoker Tobacco Use: Secondhand, Cigarettes Objective: Vital Signs Temp Pulse Resp BP Pulse Ox 97.9 F 79 18 103/87 H 96 05/24/19 09:40 05/24/19 09:40 05/24/19 09:40 05/24/19 09:40 05/24/19 09:40 Oxygen Flow Rate (L/min) 3 Oxygen Delivery Method Nasal Cannula Weight: 203 lb 4.259 oz Body Mass Index (BMI) 32.8 Finger Stick Blood Glucose 118 Intake and Output for Last 24 Hours 05/22/19 05/23/19 05/24/19 23:59 23:59 23:59 Intake Total 240 / 240 Output Total 0 / 0 Balance 240 / 240 General: Awake, Alert, Oriented x 3 HEENT: Atraumatic Oral: Moist Mucosa Neck: Supple Lungs: Clear to auscultation Cardiovascular: Regular Rhythm Abdomen: Soft Extremities: Bilateral Edema +2 Skin: No Rashes Psych/Mental Status: Appropriate 05/23/19 14:23: WBC 7.2, RBC 2.92 L, Hgb 9.9 L, Hct 33.0 L, MCV 113.0 H, MCH 33.9 H, MCHC 30.0 L, Plt Count 134 L, MPV 10.2, Immature Gran % (Auto) 0.700, Neut % (Auto) 84.0 H, Lymph % (Auto) 9.2 L, [place] % (Auto) 4.2, Eos % (Auto) 1.5, Baso % (Auto) 0.4, Absolute Neuts (auto) 6.0, Nucleated RBC % 0 05/23/19 14:23: Sodium 138, Potassium 3.7, Chloride 96 L, Carbon Dioxide 33.0 H, Anion Gap 9, BUN 30 H, Creatinine 4.62 H, Est GFR (MDRD) Af Amer 13 L, Est GFR (MDRD) Non-Af 11 L, BUN/Creatinine Ratio 6.5 L, Glucose 287 H, Calcium 8.5, Troponin I 0.125 H 05/23/19 18:50: Troponin I 0.133 H 05/23/19 21:52: Troponin I 0.141 H 05/24/19 05:20: Sodium 142, Potassium 4.1, Chloride 98, Carbon Dioxide 31.0, Anion Gap 13, BUN 44 H, Creatinine 5.60 H, Est GFR (MDRD) Af Amer 11 L, Est GFR (MDRD) Non-Af 9 L, BUN/Creatinine Ratio 7.9 L, Glucose 83, Calcium 8.4 L 05/24/19 05:20: Hemoglobin A1c 6.0 Rhythm: EKG: ECHO: Stress Test: Cardiac Cath: PCI: CT Surgery: Holter monitor: EPS: PPM: CXR: Chest CT Scan: Assessment/Plan 1. Chest pain: Patient's angiograms from February 2018, January 2019 and March 2019 where reviewed. Patient does have significant residual coronary artery disease which could be causing her angina. She has not had further episodes apart from what brought her into the hospital. I think it will be reasonable to try Ranexa on this patient and if she continues to have angina then proceed with coronary angiography. From a heart standpoint patient can be discharged home and follow-up with Dr. Magdaleno. If she has angina at that time then she can be scheduled for coronary angiography. 2. Pedal edema: Patient has 2+ bilateral pedal edema. She does have severe LV dysfunction. She is scheduled for dialysis today. I would recommend taking more fluid off during dialysis today. 3. LV dysfunction: Patient has severe LV systolic dysfunction. Continue current medications for this. As an outpatient she would probably need another evaluation of her EF 3 months after her last PCI and if still lower than 35% she may require an AICD.
--- NOTE | 2019-05-24 14:32 | CASEMGMT ---
Addendum entered by Viktoria Herman 05/24/19 15:51: Call back to [facility] to notify that pt will be at normal dialysis tomorrow, voice understanding. Monik TEJADA CM Original Note: Call to [facility] and they state they can fit pt in for dialysis if nephrology wants her run today or she can just come tomorrow as scheduled. Per [facility], pt's normal schedule is TTS at 1130. Call to Dr. Martinez and he states that pt can just go to normal dialysis chair time tomorrow and he is aware that pt to be discharged today, voices understanding. katy Walters RN, and Rivka RN updated at this time, voice understanding. Monik TEJADA CM
--- NOTE | 2019-05-24 14:43 | PCM.DC ---
- Discharge Diagnoses Current Active Problems: Current Active and Chronic Problems (Last Reviewed 05/23/19 @ 16:33 by Roberto Roman DO) Chest pain (Acute) You will use the following diet at home:: No restrictions Your food should be the consistency of: Regular Your liquids should be the consistency of: Regular/Thin Discharge Activity: Return to Normal Activity Weight Bearing Status: Full weight bearing Allergies/Adverse Reactions: Allergies latex Allergy (Verified 05/23/19 14:19) Rash prochlorperazine [From Compazine] Allergy (Verified 05/23/19 14:19) Unknown levofloxacin [From Levaquin] Adverse Reaction (Verified 05/23/19 14:19) PT CAN'T REMEMBER PT CAN'T REMEMBER metoclopramide HCl [From Reglan] Adverse Reaction (Verified 05/23/19 14:19) Nausea NSAIDS (Non-Steroidal Anti-Inflamma Adverse Reaction (Verified 05/23/19 14:19) kidney function Medications to take at Discharge Aspirin [Aspirin, Baby] 81 mg PO DAILY@0800 01/26/16 Ergocalciferol [Vitamin D] 50,000 unit PO QWEEK 01/26/16 Insulin Aspart [Novolog Flexpen] 10 units SC TIDCM 01/26/16 Insulin Glargine,Hum.rec.anlog [Lantus] 5 unit SQ QHS 01/09/17 Sodium Bicarbonate 650 mg PO 4X/DAY 03/29/17 Pantoprazole Sodium [Protonix] 20 mg PO BID 05/26/18 Clopidogrel Bisulfate [Plavix] 75 mg PO DAILY 07/01/18 Fluoxetine HCl 40 mg PO DAILY 08/09/18 Lidocaine/Prilocaine HCl [[place]ml[place] Cream W/Tegaderm] 1 applicatio TOPICAL MOWEFR 10/01/18 Nystatin Powder [Mycostatin Powder] 1 applic TOPICAL BID PRN PRN 10/14/18 hydrOXYzine tablet [Atarax tablet] 10 mg PO TUTHSA 11/06/18 Sodium Chloride 0.65% [[place] Nasal [place]] 2 spray NASAL TID PRN PRN spray.btl 12/14/18 Acetaminophen [Tylenol Tablet] 650 mg PO Q6H PRN PRN tab 01/29/19 Nitroglycerin (INPATIENT USE) [Nitrostat] 0.4 mg SUBLINGUAL Q5M PRN #10 tab.subl 01/29/19 amlodipine 2.5 mg tablet 2.5 mg PO DAILY 02/28/19 Sucroferric Oxyhydroxide [Velphoro] 1,500 mg PO TIDCM 04/07/19 Losartan Potassium [Cozaar] 12.5 mg PO DAILY #30 tab 04/10/19 Atorvastatin Calcium [Lipitor] 40 mg PO QHS 05/23/19 Carvedilol 25 mg PO BID 05/23/19 Vitamin B Complex 1 cap PO DAILY 05/23/19 Ranolazine [Ranexa] 500 mg PO BID #60 tab 05/24/19 The following prescriptions were given: Ranolazine [Ranexa] 500 mg PO BID #60 tab Transmission Status: Pending to [facility] Primary Care Physician: Christopher Foy MD [Primary Care Provider] - Please follow up with your Primary Care Physician in: at next scheduled time Test Results: Test results from this visit will be discussed in further detail at your follow-up appointment, if applicable.
--- NOTE | 2019-05-24 14:59 | PCM.PN.BLA ---
Progress Note patient is being discharged today. consult cancelled
--- NOTE | 2019-05-24 15:35 | CHAPLAIN ---
Type of Pastoral Visit _x__ Initial Visit ___ Follow-up Visit ___ On-call Visit ___ General Patient Visit ___ Spiritual Assessment ___ Family Conference ___ Bereavement ___ Rapid Response ___ Code Blue ___ Other (describe below) Pastoral Care Referral From _x__ Patient ___ Family ___ Nurse ___ Physician ___ Leasing Assistant ___ Java Solutions Architect ___ Other (describe below) Sacrament/Intervention _x__ Active listening ___ Anointing ___ Yarsanism ___ Bereavement ___ Communion _x__ Vianca exploration ___ ___ Life review _x__ Prayer ___ Reconciliation ___ Sacrament of Sick _x__ Supportive presence ___ Wedding ___ Other (describe below) Pastoral Comments
--- NOTE | 2019-05-25 07:46 | DS.PCM_ITS ---
Discharge Date and Diagnosis Date of Admission: 05/23/19 Date of Discharge: 05/24/19 - Primary Discharge Diagnosis #1 chest pain-etiology unclear #2 coronary artery disease #3 end-stage renal disease on dialysis #4 hypertension #5 hyperlipidemia #6 elevated troponin-etiology unknown #7 ischemic cardiomyopathy #8 pulmonary hypertension #9 chronic hypoxic respiratory failure - Secondary Discharge Diagnosis Chronic Problems (Last Reviewed 05/23/19 @ 16:33 by Roberto Roman DO) S/P PTCA (percutaneous transluminal coronary angioplasty) (Chronic 04/08/19) PCI to mid LCX ISR with 2.0 and 2.25 NC balloon, unable to cross with 2.0 X 10 Angiosculpt. 04/08/2019 Raynaud's disease with gangrene (Chronic) Peripheral arterial disease (Chronic) Acute on chronic systolic (congestive) heart failure (Chronic) Ischemic cardiomyopathy (Chronic) EF in December 2018 on a stress test was 29% with extensive wall motion abnormalities COPD (chronic obstructive pulmonary disease) (Chronic) Elevated troponin I level (Chronic) Anemia due to chronic kidney disease (Chronic) CAD (coronary artery disease) (Chronic) Stented coronary artery (Chronic 01/28/19) FFR of LAD 0.82; VIKY of mid LAD with 2.5 X 24 mm Promus Synergy, OM <50% stenosis per Dr. Magdaleno @ [facility];Occluded mid LAD stent with L to R collaterals. Double vessel CAD of the LCX and OM#1 Segmented LV systolic dysfunction- Severe LVEF: by LV gram 25 % Elevated Left Ventricular End Diastolic Pressure Successful PCI with PTCA to the proximal OM#1 with a 1.5 and 2.0 mm balloon; unable to advance new deflated balloon beyond mid OM due to calcification. No dissection, no stents placed and pt had no symptoms . Successful PTCA/VIKY to mid LCX with 2.25 x 12 Promus Synergy, post dilated with a 2.25 x 8 NC Balloon; 75%-->0%, no dissection. ESRD (end stage renal disease) on dialysis (Chronic) Decubitus ulcer, stage III (Chronic) GABRIEL (obstructive sleep apnea) (Chronic) Depression (Chronic) Anxiety (Chronic) HTN (hypertension) (Chronic) S/P repair of PDA (patent ductus arteriosus) (Chronic) At young age Hyperlipidemia (Chronic) Obesity (BMI 30.0-34.9) (Chronic) Gastroparesis (Chronic) Hospital Course and Treatment Operations: None Procedures: None Summary of Care Provided: The patient is a 43 year old F seen in the emergency room at [facility] with a chief complaint of chest pain which occurred during her dialysis, dialysis was stopped and she was brought to the emergency room for evaluation. Work-up in the emergency room included cardiac enzymes which showed elevated troponins in the intermediate range, chest x-ray was read out as showing vascular congestion and CHF along with bibasilar atelectasis-patient however had no signs or symptoms of congestive heart failure. EEG showed a sinus tachycardia with some ST depression in the inferior lead which was similar to a previous EKG. Patient was placed in observation status on PCU, repeat cardiac enzymes showed an intermediate elevation of troponin, patient did not complain of any chest pain during her hospitalization. She was seen in consultation by cardiology who did not feel that she needed a repeat cathet erization or stress test, they recommended placing the patient on Ranexa, she was given a prescription for this at the time of discharge. On 05/24/2019, patient was seen and examined and felt to be in stable condition for discharge home: On examination she appeared in good health and spirits. Vital signs as documented. Skin warm and dry and without overt rashes. Neck without JVD. Lungs clear. Heart exam notable for regular rhythm, normal sounds and absence of murmurs, rubs or gallops. Abdomen unremarkable and without evidence of organomegaly, masses, or abdominal aortic enlargement. Extremities- there was the presence of bilateral lower leg edema noted, this is nonpitting in nature but is significant.. Neuro: Cranial nerves II through XII are grossly intact, no focal motor deficits were noted, sensation to light touch and pinprick is intact. Psych: Patient is alert and oriented x3, she does not appear anxious or depressed On 05/24/2019, I talked with the patient's network systems consultant, he did not feel the patient needed dialysis and he recommended that she follow-up tomorrow with her regular dialysis schedule. Patient was discharged home in stable condition. - Physical Exam Vitals/I&O's: Vital Signs Temp Pulse Resp BP Pulse Ox 97.9 F 79 18 103/87 H 96 05/24/19 09:40 05/24/19 09:40 05/24/19 09:40 05/24/19 09:40 05/24/19 09:40 Oxygen Flow Rate (L/min) 3 Oxygen Delivery Method Nasal Cannula Weight: 92.2 kg Body Mass Index (BMI) 32.8 Finger Stick Blood Glucose 118 Intake and Output for Last 24 Hours 05/23/19 05/24/19 05/25/19 23:59 23:59 23:59 Intake Total 240 / 240 Output Total 0 / 0 Balance 240 / 240 Laboratory Results 05/24/19 05:20: Hemoglobin A1c 6.0 05/24/19 13:37: POC Glucose 91 Discharge Activity: Return to Normal Activity Weight Bearing Status: Full weight bearing Home Medications: Medications to take at Discharge Aspirin [Aspirin, Baby] 81 mg PO DAILY@0800 01/26/16 Ergocalciferol [Vitamin D] 50,000 unit PO QWEEK 01/26/16 Insulin Aspart [Novolog Flexpen] 10 units SC TIDCM 01/26/16 Insulin Glargine,Hum.rec.anlog [Lantus] 5 unit SQ QHS 01/09/17 Sodium Bicarbonate 650 mg PO 4X/DAY 03/29/17 Pantoprazole Sodium [Protonix] 20 mg PO BID 05/26/18 Clopidogrel Bisulfate [Plavix] 75 mg PO DAILY 07/01/18 Fluoxetine HCl 40 mg PO DAILY 08/09/18 Lidocaine/Prilocaine HCl [[place]ml[place] Cream W/Tegaderm] 1 applicatio TOPICAL MOWEFR 10/01/18 Nystatin Powder [Mycostatin Powder] 1 applic TOPICAL BID PRN PRN 10/14/18 hydrOXYzine tablet [Atarax tablet] 10 mg PO TUTHSA 11/06/18 Sodium Chloride 0.65% [[place] Nasal [place]] 2 spray NASAL TID PRN PRN spray.btl 12/14/18 Acetaminophen [Tylenol Tablet] 650 mg PO Q6H PRN PRN tab 01/29/19 Nitroglycerin (INPATIENT USE) [Nitrostat] 0.4 mg SUBLINGUAL Q5M PRN #10 tab.subl 01/29/19 amlodipine 2.5 mg tablet 2.5 mg PO DAILY 02/28/19 Sucroferric Oxyhydroxide [Velphoro] 1,500 mg PO TIDCM 04/07/19 Losartan Potassium [Cozaar] 12.5 mg PO DAILY #30 tab 04/10/19 Atorvastatin Calcium [Lipitor] 40 mg PO QHS 05/23/19 Carvedilol 25 mg PO BID 05/23/19 Vitamin B Complex 1 cap PO DAILY 05/23/19 Ranolazine [Ranexa] 500 mg PO BID #60 tab 05/24/19 Following Prescrptions Were Given to Patient: Ranolazine [Ranexa] 500 mg PO BID #60 tab Transmission Status: Received by [facility] Primary Care Physician: Christopher Foy MD [Primary Care Provider] - Please follow up with your Primary Care Physician in: at next scheduled time Disposition: Home Minutes spent on discharge:: 30 Patient Condition:: Stable Medical Necessity - Tobacco Use Smoking Status: Current every day smoker Tobacco Use: Secondhand, Cigarettes Meaningful Use Info Meaningful Use Diagnoses (Choose all that apply): None applicable Code Visit OBSV E&M: 58144 Observation care discharge
== END 2019-05-24 14:46 | disposition home or self-care (01) ==
LOC: ED 15:25 → PCU 16:26
PROVIDERS: Emergency Provider Emergency Medicine; Family Provider Family Medicine; PCP Family Medicine; Visit Provider Internal Medicine
DX: R07.89 Other chest pain (principal); I25.10 Atherosclerotic heart disease of native coronary artery without angina pectoris; N18.6 End stage renal disease; E78.5 Hyperlipidemia, unspecified; R00.0 Tachycardia, unspecified; D63.1 Anemia in chronic kidney disease; J44.9 Chronic obstructive pulmonary disease, unspecified; I73.00 Raynaud's syndrome without gangrene; I13.2 Hypertensive heart and chronic kidney disease with heart failure and with stage 5 chronic kidney disease, or end stage renal disease; F17.210 Nicotine dependence, cigarettes, uncomplicated; F41.9 Anxiety disorder, unspecified; F32.9 Major depressive disorder, single episode, unspecified; E11.22 Type 2 diabetes mellitus with diabetic chronic kidney disease; J96.11 Chronic respiratory failure with hypoxia; E11.51 Type 2 diabetes mellitus with diabetic peripheral angiopathy without gangrene; I50.22 Chronic systolic (congestive) heart failure; G47.33 Obstructive sleep apnea (adult) (pediatric); E66.9 Obesity, unspecified; I25.5 Ischemic cardiomyopathy; Z99.2 Dependence on renal dialysis; Z79.899 Other long term (current) drug therapy; Z79.4 Long term (current) use of insulin; Z79.82 Long term (current) use of aspirin; Z79.02 Long term (current) use of antithrombotics/antiplatelets; Z68.32 Body mass index [BMI] 32.0-32.9, adult; Z71.3 Dietary counseling and surveillance
CPT/HCPCS: 36415; 71045; 80048; 82962; 83036; 84484; 85025; 93005; 93971; 96372; 96374; 96375; 97802; 99218; 99285; 99406; A4216; G0378; J2405